=== PATIENT | female | born 1980 | race Caucasian/White ===

== ENCOUNTER 2023-10-26 19:16 | Observation (INO) | payer MEDICARE, MEDICAID, SELFPAY ==
[2023-10-26] VITALS (23 sets, daily range): BP systolic 118–170; BP diastolic 73–105; PULSE 63–115; TEMP 36.4–36.6; O2SAT 93–98; BMI 38.7; BMI 40.5
--- NOTE | 2023-10-26 19:26 | US_ITS ---
The [address] [address] Patient Name: LISETH ANDERSON MRN: [id number] date: 1980 Sex: F Assigned Patient Location: ER Current Patient Location: ICU Accession/Order Number: [id number] Exam Date: 10/26/2023 20:40 Report Date: 10/26/2023 23:19 At the request of: GEORGINA BARRY Procedure: US venous doppler LE LT EXAM: US venous doppler LE LT HISTORY: DVT COMPARISON: 08/28/2021 TECHNIQUE: Grayscale sonography of the left lower extremity was performed from the inguinal canal to popliteal fossa utilizing a venous compression technique. Duplex scans of the common femoral vein were performed. FINDINGS: There is normal compression the common femoral and superficial femoral veins. There is clot seen within the left popliteal vein, small saphenous vein and posterior tibial vein. US/US venous doppler LE LT IMPRESSION: Thrombosis of the left popliteal vein, small saphenous vein and posterior tibial vein. Critical results were identified 11:08 PM EDT 10/26/2023 NOTIFIED by TELEPHONE BY Dr. Trinidad Eid MD to Dr. Juaquin Haile At 10/26/2023 11:18 PM EDT. Electronically authenticated by: TRINIDAD EID Date: 10/26/2023 23:19
--- NOTE | 2023-10-26 19:26 | ECG_ITS ---
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
--- NOTE | 2023-10-26 19:26 | CT_ITS ---
The [address] [address] Patient Name: LISETH ANDERSON MRN: [id number] date: 1980 Sex: F Assigned Patient Location: ER Current Patient Location: ER Accession/Order Number: [id number] Exam Date: 10/26/2023 20:10 Report Date: 10/26/2023 21:10 At the request of: GEORGINA BARRY Procedure: CT angio chest CT angio chest HISTORY: PE TECHNIQUE: CTA chest with intravenous contrast attention to pulmonary arteries. Sagittal, coronal and slab 3D MIP coronal reconstructed images were also created for further evaluation and interpretation. One of the following dose optimization techniques was utilized in the performance of this exam: Automated exposure control; adjustment of the mA and/or kV according to the patient's size; or use of an iterative reconstruction technique. Specific details can be referenced in the facility's radiology CT exam operational policy. COMPARISON: None. FINDINGS: Thoracic aorta: Negative Pulmonary arteries: Predominantly nonocclusive filling defects in the bilateral interlobar arteries and Celexa segment and subsegmental artery supplying the bilateral upper lobes, right lower lobe and bilateral lower lobes. Mediastinum: No evidence of RV strain. Pacemaker ICD leads.. Lymph nodes: Negative. Lungs/pleura: Negative. Visualized upper abdomen: Hiatal hernia and evidence of gastric surgery. Bones/soft tissues: Negative. CT/CT angio chest IMPRESSION: 1. Bilateral pulmonary emboli without evidence of RV strain. 2. A stat call request for critical findings was submitted 7:10 PM MST Electronically authenticated by: DAVID BUSTOS Date: 10/26/2023 21:10
--- NOTE | 2023-10-26 19:38 | ED_ITS ---
HPI HPI - General Adult General Chief complaint: Extremity Injury, Lower Stated complaint: Lower Extremity Pain Time Seen by Provider: 10/26/23 19:20 Source: patient Mode of arrival: walk-in Limitations: no limitations History of Present Illness HPI narrative: Patient is a 42-year-old female who presents to the emergency department for pain in the left calf that has been present for several days. She states she has a history of gastroparesis and has had episodes of upper abdominal pain and vomiting over the last several weeks. She states she attributed the left calf pain to muscle cramps after vomiting. She has a pacemaker in place for history of sick sinus syndrome. She states she has previously had a DVT to her arm almost 15 years ago and was anticoagulated with Coumadin at that time. She is no longer anticoagulated. She denies chest pain but she is short of breath and tachycardic with arriving to the ER and walking to an exam room. She is not concerned for . Related Data Home Medications ?Medication ?Instructions ?Recorded ?Confirmed aripiprazole 30 mg tablet 30 mg PO DAILY 10/26/23 10/26/23 benztropine 1 mg tablet 1 mg PO BID 10/26/23 10/26/23 metoprolol succinate 25 mg 25 mg PO DAILY 10/26/23 10/26/23 tablet,extended release 24 hr mirtazapine 15 mg tablet 15 mg PO .HS 10/26/23 10/26/23 olanzapine 5 mg tablet 5 mg PO BID 10/26/23 10/26/23 paliperidone palmitate 234 mg/1.5 234 mg IM Q30D 10/26/23 10/26/23 mL intramuscular syringe (Invega Sustenna) venlafaxine 150 mg 150 mg PO DAILY 10/26/23 10/26/23 capsule,extended release 24 hr Allergies Allergy/AdvReac Type Severity Reaction Status Date / Time hydromorphone [From Dilaudid] Allergy Mild itching Verified 10/26/23 19:27 Opioid HPI Opioid Management Most Recent Opioid Data: Last Pain Scale 10 10/27/23 00:19 Last Pain Assessment 10/27/23 03:07 Last MAR Pain Assessment 10/27/23 01:20 Last ORT Total Score 4 10/26/23 23:12 Last ORT Risk Category Moderate Risk 10/26/23 23:12 Review of Systems ROS Constitutional Denies: fever or chills Ears, nose, mouth, and throat Denies: throat pain or nasal congestion Cardiovascular Denies: chest pain Respiratory Reports: shortness of breath Gastrointestinal Reports: abdominal pain, nausea and vomiting; Denies: diarrhea Musculoskeletal Denies: back pain Integumentary/Breast Denies: rash Neurological Denies: headache Hematologic/Lymphatic Denies: easy bruising or easy bleeding PFSH PFSH Medical History (Updated 10/27/23 @ 00:09 by Gretta Peterson) Hypertension ?I10 - Essential (primary) hypertension (ICD-10) Schizophrenia ?F20.9 - Schizophrenia, unspecified (ICD-10) DVT (deep venous thrombosis) ?I82.409 - Acute embolism and thrombosis of unspecified deep veins of unspecified lower extremity (ICD-10) Obesity ?E66.9 - Obesity, unspecified (ICD-10) Pacemaker ?Z95.0 - Presence of cardiac pacemaker (ICD-10) Sick sinus syndrome due to SA node dysfunction ?I49.5 - Sick sinus syndrome (ICD-10) Gastroparesis ?K31.84 - Gastroparesis (ICD-10) Surgical History (Updated 10/27/23 @ 00:09 by Gretta Peterson) S/P reconstruction of ligament of knee ?Z98.890 - Other specified postprocedural states (ICD-10) History of cholecystectomy ?Z90.49 - Acquired absence of other specified parts of digestive tract (ICD- 10) Hx of appendectomy ?Z90.49 - Acquired absence of other specified parts of digestive tract (ICD- 10) Social History (Updated 10/27/23 @ 00:10 by Gretta Peterson) Within the past year, how often did you have a drink containing alcohol: never Score interpretation: A score less than 3 is consistent with normal alcohol consumption. Smoking status: Never smoker Non-prescribed substance use: denies use Highest level of school completed/degree received: high school graduate Are you now , , , , never or living with a partner: living with partner Little interest or pleasure in doing things: several days Feeling down, depressed, or hopeless: several days Feel stressed/tense/nervous/anxious/difficulty sleeping: only a little Life stressor details: new baby at age of 42 Do you think of yourself as: straight/heterosexual Gender Identity: female Exam Narrative Exam Narrative: Gen.: Awake, alert, in no distress Head: Normocephalic, atraumatic ENT: Moist mucous membranes Respiratory: No respiratory distress, lungs clear bilaterally Cardio: Regular rate and rhythm Gastrointestinal: Abdomen is soft, nondistended and nontender to palpation Extremities: Moves extremities equally, no injuries noted Psych: Normal mood and affect Neuro: No focal neuro deficit Skin: Warm, dry, intact Constitutional Vital Signs, click to edit/add: Last Vital Signs Temp 97.6 F 10/26/23 23:09 Pulse 72 10/27/23 02:01 Resp 10 L 10/27/23 03:07 BP 147/89 H 10/26/23 23:09 Pulse Ox 96 10/26/23 23:09 O2 Del Method Room Air 10/26/23 23:09 Course Vital Signs Vital signs: Vital Signs Temperature 97.8 F 10/26/23 19:21 Pulse Rate 115 H 10/26/23 19:21 Respiratory Rate 18 10/26/23 19:21 Blood Pressure 170/105 H 10/26/23 19:21 Pulse Oximetry 97 10/26/23 19:21 Oxygen Delivery Method Room Air 10/26/23 19:21 Temperature 97.6 F 10/26/23 23:09 Pulse Rate 72 10/27/23 02:01 Respiratory Rate 10 L 10/27/23 03:07 Blood Pressure 147/89 H 10/26/23 23:09 Pulse Oximetry 96 10/26/23 23:09 Oxygen Delivery Method Room Air 10/26/23 23:09 Medical Decision Making MDM Narrative Medical decision making narrative: On arrival to the emergency department, IV was placed and the patient was given IV fluids. Lab studies show she has a potassium of 3.2, ultrasound of the left lower extremity was obtained as well as CT angio of the chest. Patient was found to have a DVT in the left popliteal, peroneal and posterior tibialis of the left lower extremity as well as CT angio showing bilateral PEs with no evidence of heart strain. Discussed with hospitalist service, patient will be admitted for bilateral PEs, DVT. Heparin bolus and drip were initiated. She is hemodynamically stable at time of admission to ICU. Medical Records Medical records reviewed: Yes I reviewed the patient's medical records Lab Data Lab results reviewed: Yes I reviewed the patient's lab results Labs: Lab Results 10/26/23 10/26/23 Range/Units 19:39 20:00 WBC 6.3 (4.0-11.0) 10^3/uL RBC 3.99 L (4.20-5.40) 10^6/uL Hgb 12.7 (12.0-16.0) g/dL Hct 38.5 (36.0-48.0) % MCV 96.5 (81.0-99.0) fL MCH 31.8 (26.7-34.0) pg MCHC 33.0 (29.9-35.2) g/dL RDW 12.7 (11.0-15.0) % Plt Count 138 L (150-450) 10^3/uL MPV 9.8 (9.5-13.5) fL Neut % (Auto) 68.8 (43.0-75.0) % Lymph % (Auto) 21.8 (20.5-60.0) % [place] % (Auto) 7.2 (1.7-12.0) % Eos % (Auto) 1.4 (0.9-7.0) % Baso % (Auto) 0.5 (0.2-2.0) % Neut # (Auto) 4.3 (1.4-6.5) 10^3/uL Lymph # (Auto) 1.4 (1.2-3.8) 10^3/uL [place] # (Auto) 0.5 (0.3-0.8) 10^3/uL Eos # (Auto) 0.1 (0.0-0.7) 10^3/uL Baso # (Auto) 0.0 (0.0-0.1) 10^3/uL Abs Immat Gran (auto) 0.02 (0.00-0.03) 10^3/uL Imm/Tot Granulo (auto) 0.3 (0.0-0.5) % PT 10.2 (9.0-11.6) sec INR 0.96 Sodium 140 (136-145) mmol/L Potassium 3.2 L (3.5-5.1) mmol/L Chloride 104 (98-107) mmol/L Carbon Dioxide 25.6 (21.0-32.0) mmol/L Anion Gap 13.6 BUN 10.0 (7.0-18.0) mg/dL Creatinine 0.94 (0.55-1.02) mg/dL Est GFR ( Amer) >60 (>=60) Est GFR (Non-Af Amer) >60 (>=60) BUN/Creatinine Ratio 10.6 Glucose 96 (74-106) mg/dL Lactate 2.3 H* (0.4-2.0) mmol/L Calcium 9.5 (8.5-10.1) mg/dL Total Bilirubin 0.5 (0.2-1.0) mg/dL AST 9 L (15-37) U/L ALT 11 L (14-59) U/L Alkaline Phosphatase 98 (46-116) U/L Troponin I High Sens <4.0 L (4.0-51.3) pg/mL NT-Pro-B Natriuret Pep 55.0 (<=450.0) pg/mL Total Protein 7.6 (6.4-8.2) g/dL Albumin 3.4 (3.4-5.0) g/dL Globulin 4.2 g/dL Albumin/Globulin Ratio 0.8 TSH 3.806 H (0.358-3.740) uIU/mL Serum HCG, Qual Negative (NEGATIVE) Urine Color Lt. yellow (YELLOW) Urine Clarity Clear (CLEAR) Urine pH 6.0 (5.0-9.0) Ur Specific [place] >=1.030 A (1.005-1.025) Urine Protein Negative (NEG/TRACE) mg/dL Urine Glucose (UA) Negative (NEGATIVE) mg/dL Urine Ketones Negative (NEGATIVE) mg/dL Urine Occult Blood Negative (NEGATIVE) Urine Nitrite Negative (NEGATIVE) Urine Bilirubin Negative (NEGATIVE) Urine Urobilinogen 1.0 (0.2-1.0) EU/dL Ur Leukocyte Esterase Small A (NEGATIVE) Urine RBC None seen (0-2) #/HPF Urine WBC 5-10 A (NONE SEEN) #/HPF Ur Squamous Epith Cells Many A (NONE/RARE) #/LPF Urine Crystals None seen (None Seen) #/HPF Amorphous Sediment Few Urine Bacteria None seen (NONE SEEN) #/HPF Urine Casts None seen (NONE SEEN) #/LPF Urine Mucus Small A (NONE SEEN) Ur Culture Indicated? Yes Imaging Data CT scan - chest: Attestation: I have reviewed the pertinent imaging results. Radiologist's impression: ITS Impressions Chest CTA 10/26/23 19:26 IMPRESSION: 1. Bilateral pulmonary emboli without evidence of RV strain. 2. A stat call request for critical findings was submitted 7:10 PM MST Electronically authenticated by: DAVID BUSTOS Date: 10/26/2023 21:10 Venous Doppler Study 10/26/23 19:26 IMPRESSION: Thrombosis of the left popliteal vein, small saphenous vein and posterior tibial vein. Critical results were identified 11:08 PM EDT 10/26/2023 NOTIFIED by TELEPHONE BY Dr. Trinidad Eid MD to Dr. Juaquin Haile At 10/26/2023 11:18 PM EDT. Electronically authenticated by: TRINIDAD EID Date: 10/26/2023 23:19 ECG Data Attestation: I personally reviewed and interpreted this ECG as follows: (Normal sinus rhythm at a rate of 97 with occasional PVC, no acute ST elevation. EKG reviewed by attending physician) Discharge Plan Discharge Chief Complaint: Extremity Injury, Lower Clinical Impression: Acute deep vein thrombosis (DVT) of left lower extremity, Bilateral pulmonary embolism Patient Disposition: Admitted As Inpatient Time of Disposition Decision: 21:29 Discharge Date/Time: 10/26/23 22:50
[2023-10-26 19:47] LABS: Basophils Percent Auto 0.5 % (0.2-2.0); Eosinophils Absolute Auto 0.1 10^3/uL (0.0-0.7); Eosinophils Percent Auto 1.4 % (0.9-7.0); Hematocrit 38.5 % (36.0-48.0); Hemoglobin 12.7 g/dL (12.0-16.0); Immature Granulocytes Abs Auto 0.02 10^3/uL (0.00-0.03); Immature Granulocytes Pct Auto 0.3 % (0.0-0.5); Lymphocytes Absolute Auto 1.4 10^3/uL (1.2-3.8); Lymphocytes Percent Auto 21.8 % (20.5-60.0); Mean Corpuscular Hemoglobin 31.8 pg (26.7-34.0); Mean Corpuscular Volume 96.5 fL (81.0-99.0); Mean Platelet Volume 9.8 fL (9.5-13.5); Monocytes Absolute Auto 0.5 10^3/uL (0.3-0.8); Monocytes Percent Auto 7.2 % (1.7-12.0); Neutrophils Absolute Auto 4.3 10^3/uL (1.4-6.5); Neutrophils Percent Auto 68.8 % (43.0-75.0); Platelet Count 138 10^3/uL (150-450); Red Blood Count 3.99 10^6/uL (4.20-5.40); Red Cell Distribution Width 12.7 % (11.0-15.0); White Blood Count 6.3 10^3/uL (4.0-11.0)
[2023-10-26] MEDS: PROMETHAZINE HCL 12.5 MG in 0.9 % SODIUM CHLORIDE 50 ML 202 MG IV (19:58)
[2023-10-26] MEDS: FAMOTIDINE/PF 20 MG/2 ML VIAL IV (20:00)
[2023-10-26] MEDS: 0.9 % SODIUM CHLORIDE 1,000 ML 1000 ML IV (20:00)
[2023-10-26 20:13] LABS: Bilirubin Urine NEGATIVE (NEGATIVE); Blood Urine NEGATIVE (NEGATIVE); Clarity Urine CLEAR (CLEAR); Color Urine LT. YELLOW (YELLOW); Glucose Urine UA NEGATIVE (NEGATIVE); Ketones Urine NEGATIVE (NEGATIVE); Leukocyte Esterase Urine SMALL (NEGATIVE); Nitrite Urine NEGATIVE (NEGATIVE); Protein Urine NEGATIVE (NEG/TRACE); Specific Gravity Urine >=1.030 (1.005-1.025)
[2023-10-26 20:14] LABS: INR 0.96; Prothrombin Time 10.2 sec (9.0-11.6)
[2023-10-26 20:15] LABS: Lactate/Lactic Acid 2.3 mmol/L (0.4-2.0)
[2023-10-26 20:22] LABS: HCG Qualitative NEGATIVE (NEGATIVE)
[2023-10-26 20:23] LABS: Alanine Aminotransferase 11 U/L (14-59); Albumin Globulin Ratio 0.8; Albumin Level 3.4 g/dL (3.4-5.0); Alkaline Phosphatase 98 U/L (46-116); Anion Gap 13.6; Aspartate Amino Transferase 9 U/L (15-37); BUN Creatinine Ratio 10.6; Bilirubin Total 0.5 mg/dL (0.2-1.0); Calcium 9.5 mg/dL (8.5-10.1); Carbon Dioxide 25.6 mmol/L (21.0-32.0); Chloride 104 mmol/L (98-107); Estimated GFR (African America >60 (>=60); Estimated GFR (Non-African Ame >60 (>=60); Globulin 4.2 g/dL; Glucose 96 mg/dL (74-106); Potassium 3.2 mmol/L (3.5-5.1); Sodium 140 mmol/L (136-145); Total Protein 7.6 g/dL (6.4-8.2)
[2023-10-26 20:25] LABS: Urine Microscopic Indicated YES
[2023-10-26 20:26] LABS: Thyroid Stimulating Hormone 3.806 uIU/mL (0.358-3.740); Troponin I High Sensitivity <4.0 pg/mL (4.0-51.3)
[2023-10-26 20:28] LABS: Amorphous Sediment Urine FEW; Bacteria Urine NONE SEEN #/HPF (NONE SEEN); Cast Seen? NONE SEEN #/LPF (NONE SEEN); Crystals Seen? None Seen #/HPF (None Seen); Mucus Urine SMALL (NONE SEEN); RBC Urine NONE SEEN #/HPF (0-2); Squamous Epithelial Cell Urine MANY #/LPF (NONE/RARE); Urine Culture Indicated YES
[2023-10-26] MEDS: POTASSIUM CHLORIDE 10 MEQ ER TABLET 40 MEQ PO (21:37)
[2023-10-26] MEDS: ONDANSETRON PF 4 MG/2 ML VIAL IV (21:58)
[2023-10-26] MEDS: ACETAMINOPHEN 325 MG TABLET 650 MG PO (21:59)
[2023-10-26] MEDS: HEPARIN SODIUM (PORCINE) 5,000 UNIT/ML VIAL 6300 UNIT IV (22:00)
[2023-10-26] MEDS: HEPARIN SODIUM,PORCINE/D5W 25,000 UNIT/500 ML IV.SOLN 29.1600000000000001 UNIT IV (22:02)
[2023-10-27] VITALS (11 sets, daily range): BP systolic 102–126; BP diastolic 73–79; PULSE 62–86; TEMP 36.7; O2SAT 93
[2023-10-27] MEDS: KETOROLAC TROMETHAMINE 30 MG/ML VIAL IVP ×2 (00:19→08:52)
[2023-10-27] MEDS: PROMETHAZINE HCL 25 MG TABLET PO (00:19)
[2023-10-27 04:41] LABS: Basophils Percent Auto 0.6 % (0.2-2.0); Eosinophils Absolute Auto 0.1 10^3/uL (0.0-0.7); Eosinophils Percent Auto 1.9 % (0.9-7.0); Hematocrit 34.1 % (36.0-48.0); Immature Granulocytes Abs Auto 0.01 10^3/uL (0.00-0.03); Immature Granulocytes Pct Auto 0.2 % (0.0-0.5); Lymphocytes Absolute Auto 1.8 10^3/uL (1.2-3.8); Lymphocytes Percent Auto 37.7 % (20.5-60.0); Mean Corpuscular HGB Conc 32.3 g/dL (29.9-35.2); Mean Corpuscular Hemoglobin 31.4 pg (26.7-34.0); Mean Corpuscular Volume 97.4 fL (81.0-99.0); Mean Platelet Volume 9.9 fL (9.5-13.5); Monocytes Absolute Auto 0.3 10^3/uL (0.3-0.8); Monocytes Percent Auto 7.2 % (1.7-12.0); Neutrophils Absolute Auto 2.5 10^3/uL (1.4-6.5); Neutrophils Percent Auto 52.4 % (43.0-75.0); Platelet Count 122 10^3/uL (150-450); White Blood Count 4.7 10^3/uL (4.0-11.0)
[2023-10-27 05:01] LABS: Alanine Aminotransferase 12 U/L (14-59); Albumin Globulin Ratio 0.8; Albumin Level 2.8 g/dL (3.4-5.0); Alkaline Phosphatase 74 U/L (46-116); Anion Gap 12.7; Aspartate Amino Transferase 11 U/L (15-37); BUN Creatinine Ratio 10.5; Bilirubin Total 0.5 mg/dL (0.2-1.0); Carbon Dioxide 25.5 mmol/L (21.0-32.0); Chloride 106 mmol/L (98-107); Estimated GFR (African America >60 (>=60); Estimated GFR (Non-African Ame >60 (>=60); Globulin 3.3 g/dL; Glucose 87 mg/dL (74-106); Potassium 4.2 mmol/L (3.5-5.1); Sodium 140 mmol/L (136-145); Total Protein 6.1 g/dL (6.4-8.2)
[2023-10-27 05:03] LABS: INR 1.02; Prothrombin Time 10.8 sec (9.0-11.6)
[2023-10-27 05:06] LABS: PTT Heparin Monitor 81.9 sec (48.2-68.6)
[2023-10-27 05:09] LABS: Lactate/Lactic Acid 1.1 mmol/L (0.4-2.0)
[2023-10-27] MEDS: ARIPIPRAZOLE 15 MG TABLET 30 MG PO (08:53)
[2023-10-27] MEDS: VENLAFAXINE HCL ER 150 MG CAPSULE PO (08:53)
[2023-10-27] MEDS: BENZTROPINE MESYLATE 1 MG TABLET PO (08:53)
[2023-10-27] MEDS: METOPROLOL SUCCINATE 25 MG TAB.ER.24H PO (08:53)
[2023-10-27] MEDS: FAMOTIDINE/PF 20 MG/2 ML VIAL IV (08:53)
[2023-10-27] MEDS: APIXABAN 5 MG TABLET 10 MG PO (08:53)
--- NOTE | 2023-10-27 08:56 | P.HP_ITS ---
<Statement entered by Shaikh Maury MD - 10/27/23 14:59> This documentation has been reviewed and approved. Patient seen and examined. Case and treatment plan discussed with nursing staff, case management, JESSICA Mckeon. Agree with clinical documentation and treatment plan outlined in her H and P. Patient presented with left lower extremity swelling and mild shortness of b reath and was found to have even thrombosis and pulmonary embolism on workup. She was started on IV heparin drip and transitioned to oral Eliquis. She remained hemodynamically stable. She denies chest pain, shortness of breath but continues to have left lower extremity swelling and mild discomfort. Exam: Patient laying in bed comfortably. Normal respiratory rate, clear to auscultation bilaterally. Normal heart rate, no murmur. Mild left lower extremity swelling noted. Assessment and plan: History of pulmonary embolism Deep vein thrombosis Sick sinus syndrome schizophrenia Stable for discharge on Oral Eliquis. Follow-up with PCP in one week. Patient educated on worrisome signs and symptoms and was instructed to return to Emergency Department if she developed chest pain, shortness of breath dizziness or any signs of active bleeding. HPI H&P: HPI History of Present Illness Chief complaint: Lower Extremity Pain, Bilateral PE, DVT Left Leg Narrative: 10/27/23 0840 This is a 42-year-old female patient with a past medical history significant for schizophrenia, sick sinus syndrome with pacemaker, and previous upper extremity DVT; who presented to the ED last night complaining of left calf pain and concern for recurrent DVT. The patient reports left lower extremity pain and swelling for 1 week and mild onset of shortness of breath for 2 days. Workup in the ED revealed left thrombus in the popliteal, small saphenous and posterior tibial veins per venous Doppler study. A CTA of the chest revealed bilateral pulmonary emboli without evidence of RV strain. The patient was not hypoxic in the ER, nor in any respiratory distress. Labs also revealed mild hypokalemia (3.2). She was treated with 40 mill equivalents of KCl and admitted to the hospitalist service last night. At the time of my exam the patient is resting comfortably in bed. She denies any shortness of breath but continues to complain of left leg pain. Her left leg is moderately swollen and tender with a positive Homans' sign. As the patient is still not evidencing any hypoxia or dyspnea, she is being discharged home in stable condition and has been initiated on twice daily Eliquis dosing for her PEs. She is to follow-up with her PCP in 3 to 5 days to discuss long- term anticoagulation management. She has been provided with a discount card for 1 month free of Eliquis pending insurance authorization. Opioid HPI Opioid Management Most Recent Opioid Data: Last Pain Scale 7 10/27/23 10:00 Last Pain Assessment 10/27/23 10:00 Last MAR Pain Assessment 10/27/23 10:00 Last ORT Total Score 4 10/26/23 23:12 Last ORT Risk Category Moderate Risk 10/26/23 23:12 Review of Systems ROS Status of ROS 10 or more systems reviewed and unremark able except as noted in history and below [facility] Medical History (Updated 10/27/23 @ 07:38 by Linda Ramon NP) Hypertension ?I10 - Essential (primary) hypertension (ICD-10) Schizophrenia ?F20.9 - Schizophrenia, unspecified (ICD-10) DVT (deep venous thrombosis) ?I82.409 - Acute embolism and thrombosis of unspecified deep veins of unspecified lower extremity (ICD-10) Obesity ?E66.9 - Obesity, unspecified (ICD-10) Pacemaker ?Z95.0 - Presence of cardiac pacemaker (ICD-10) Sick sinus syndrome due to SA node dysfunction ?I49.5 - Sick sinus syndrome (ICD-10) Gastroparesis ?K31.84 - Gastroparesis (ICD-10) Surgical History (Updated 10/27/23 @ 00:09 by Gretta Peterson) S/P reconstruction of ligament of knee ?Z98.890 - Other specified postprocedural states (ICD-10) History of cholecystectomy ?Z90.49 - Acquired absence of other specified parts of digestive tract (ICD- 10) Hx of appendectomy ?Z90.49 - Acquired absence of other specified parts of digestive tract (ICD- 10) Social History (Updated 10/27/23 @ 00:10 by Gretta Peterson) Within the past year, how often did you have a drink containing alcohol: never Score interpretation: A score less than 3 is consistent with normal alcohol consumption. Smoking status: Never smoker Non-prescribed substance use: denies use Highest level of school completed/degree received: high school graduate Are you now , , , , never or living with a partner: living with partner Little interest or pleasure in doing things: several days Feeling down, depressed, or hopeless: several days Feel stressed/tense/nervous/anxious/difficulty sleeping: only a little Life stressor details: new baby at age of 42 Do you think of yourself as: straight/heterosexual Gender Identity: female Meds Home Medications and Allergies Home Medications ?Medication ?Instructions ?Recorded ?Confirmed ?Type aripiprazole 30 mg tablet 30 mg PO DAILY 10/26/23 10/26/23 History benztropine 1 mg tablet 1 mg PO BID 10/26/23 10/26/23 History metoprolol succinate 25 mg 25 mg PO DAILY 10/26/23 10/26/23 History tablet,extended release 24 hr mirtazapine 15 mg tablet 15 mg PO .HS 10/26/23 10/26/23 History olanzapine 5 mg tablet 5 mg PO .qd PRN hallucinations 10/26/23 10/27/23 History paliperidone palmitate 234 mg/1.5 234 mg IM Q30D 10/26/23 10/26/23 History mL intramuscular syringe (Invega Sustenna) venlafaxine 150 mg 150 mg PO DAILY 10/26/23 10/26/23 History capsule,extended release 24 hr apixaban 5 mg (74 tabs) tablets in See Rx Instructions .Route 10/27/23 Rx a dose pack (CondoGala DVT-PE Treat .COMPLEX #74 ea 30D Start) Allergies Allergy/AdvReac Type Severity Reaction Status Date / Time hydromorphone [From Dilaudid] Allergy Mild itching Verified 10/26/23 19:27 Exam Constitutional Vital Signs, click to edit/add: Last Vital Signs Temp 98.1 F 10/27/23 07:33 Pulse 77 10/27/23 07:30 Resp 14 10/27/23 07:30 BP 102/73 10/27/23 07:25 Pulse Ox 93 L 10/27/23 04:00 O2 Del Method Room Air 10/27/23 07:33 Common normals: no apparent distress, oriented x3, alert and well nourished General appearance: cooperative Orientation/consciousness: Yes awake HENMT Common normals: normocephalic, head/scalp atraumatic, hearing grossly normal bilaterally, external nose normal and moist oral mucous membranes Eye Common normals: PERRL, EOMs intact bilaterally, conjunctivae normal and no scleral icterus Alignment: alignment normal Eyelid: eyelids normal Neck & C-Spine Common normals: full ROM, supple and no JVD Chest Common normals: inspection of chest normal Chest: symmetrical chest wall rise Respiratory Common normals: normal respiratory effort, no retractions, no use of accessory muscles and clear to auscultation bilaterally Effort & inspection: able to speak in complete sentences Cardio Common normals: no JVD, regular rate, regular rhythm, S1 normal heart sound, S2 normal heart sound, no gallops, no clicks, no murmurs, no rub and peripheral pulses 2+ throughout GI Common normals: Normal to inspection, nondistended, normoactive bowel sounds present, soft to palpation, non-tender, no hepatosplenomegaly, no masses and no bruits Bladder/kidney exam: bladder normal to palpation Back & Pelvis Common normals: thoracic and lumbar spine normal to inspection Extremity Common normals: normal capillary refill and no pedal edema General: normal exam except as noted and edema (Tr L instep/ankle); no clubbing and no cyanosis Left lower extremity: lower leg (Swollen, firm, tender calf) Neuro [place] Coma Scale: GCS not evaluated Common normals: CN's II-XII intact bilaterally, moves all extremities, no focal motor deficits and no sensory deficits noted Speech: speech normal Motor exam: strength 5/5 throughout Psych Common normals: mental status grossly normal and thought process normal Thought process: normal thought process Results Labs Labs: Short CBC 10/26/23 10/27/23 Range/Units 19:39 04:19 WBC 6.3 4.7 (4.0-11.0) 10^3/uL Hgb 12.7 11.0 L (12.0-16.0) g/dL Hct 38.5 34.1 L (36.0-48.0) % Plt Count 138 L 122 L (150-450) 10^3/uL BMP 10/26/23 10/27/23 19:39 04:19 Sodium 140 140 Potassium 3.2 L 4.2 Chloride 104 106 Carbon Dioxide 25.6 25.5 BUN 10.0 8.0 Creatinine 0.94 0.76 Glucose 96 87 Calcium 9.5 9.0 Liver Function 10/26/23 10/27/23 Range/Units 19:39 04:19 Total Bilirubin 0.5 0.5 (0.2-1.0) mg/dL AST 9 L 11 L (15-37) U/L ALT 11 L 12 L (14-59) U/L Alkaline Phosphatase 98 74 (46-116) U/L Albumin 3.4 2.8 L (3.4-5.0) g/dL Urine 10/26/23 Range/Units 20:00 Urine Color Lt. yellow (YELLOW) Urine Clarity Clear (CLEAR) Urine pH 6.0 (5.0-9.0) Ur Specific [place] >=1.030 A (1.005-1.025) Urine Protein Negative (NEG/TRACE) mg/dL Urine Glucose (UA) Negative (NEGATIVE) mg/dL Pulse Oximetry Attestation: I have reviewed the pertinent pulse oximetry results. Assessment and Plan Assessment and Plan (1) Bilateral pulmonary embolism: Assessment and Plan: Acute * Adm observation * CTA Chest reveals bilat PEs w/o evidence of RV strain * No evidence of hypoxia or respiratory distress * Heparin gtt initiated in the ED - d/c * Start Eliquis 10mg BID x 7 days, then 5 mg BID thereafter * D/C home - follow up with PCP within 1 week to discuss shelter anticoagulation plan (2) Acute deep vein thrombosis (DVT) of left lower extremity: Assessment and Plan: Acute * LLE DVTs to popliteal, sm saphenous, post tibial veins * See PE tx above (3) Hypokalemia: Assessment and Plan: Acute * K+ 3.2 in ED last night * KCL 40 mEq PO given in the ED * Resolved to 4.2 on AM labs today (4) Schizophrenia: Assessment and Plan: Chronic * Continue home aripiprazole, Invega, Mirtazapine, olanzapine, venlafaxine and benztropine to counteract antipsychotic med SEs (5) Hypertension: Assessment and Plan: Chronic * Continue home toprol xl (6) Sick sinus syndrome due to SA node dysfunction: Assessment and Plan: Chronic * Pacemaker in situ * HR well controlled
--- NOTE | 2023-10-27 10:54 | CM.NOTE ---
Rounds made with Dr. Mendiola, pt will discharge to home today. Discussed with pt diagnosis and new medication (Eliquis). Pt verbalizes understanding. Provided pt with 30 day free trail Eliquis card for discharge. Pt lives at home with boyfriend and children. No discharge needs identified.
--- NOTE | 2023-10-27 11:06 | PC.NURSE ---
taken to exit via wheelchair with belongings. discharged to private vehicle.
--- NOTE | 2023-10-27 11:15 | CM.NOTE ---
Medicare Outpatient Observation Notice discussed with pt, pt verbalizes understanding and signs paper. Original given to pt and copy placed on pt's chart.
== END 2023-10-27 11:01 | disposition home or self-care (01) ==
LOC: ER 21:29 → ICU 10-27 07:38
PROVIDERS: Nurse Practitioner Acute Care; Physician Assistant; Admitting Provider Nurse Practitioner; Emergency Provider Internal Medicine; PCP Family Medicine; Visit Provider Nurse Practitioner
DX: I82.432 Acute embolism and thrombosis of left popliteal vein (principal); I82.442 Acute embolism and thrombosis of left tibial vein; I82.4Z2 Acute embolism and thrombosis of unspecified deep veins of left distal lower extremity; I26.99 Other pulmonary embolism without acute cor pulmonale; E87.6 Hypokalemia; F20.9 Schizophrenia, unspecified; I10 Essential (primary) hypertension; I49.5 Sick sinus syndrome; R06.02 Shortness of breath; Z95.0 Presence of cardiac pacemaker; K31.84 Gastroparesis; E66.9 Obesity, unspecified; Z68.41 Body mass index [BMI] 40.0-44.9, adult; Z90.49 Acquired absence of other specified parts of digestive tract; Z98.890 Other specified postprocedural states; Z86.718 Personal history of other venous thrombosis and embolism; Z79.899 Other long term (current) drug therapy
CPT/HCPCS: 36415; 71275; 80053; 81001; 83605; 83880; 84443; 84484; 84703; 85025; 85610; 85730; 87086; 93005; 93971; 96361; 96365; 96366; 96367; 96375; 96376; 99285; G0378; Q9967

== ENCOUNTER 2023-10-28 18:32 | Emergency (ER) | payer MEDICARE, MEDICAID, SELFPAY ==
[2023-10-28] VITALS (36 sets, daily range): BP systolic 111–173; BP diastolic 82–104; PULSE 60–95; TEMP 36.6; O2SAT 92–99; BMI 40.4
--- NOTE | 2023-10-28 18:53 | ECG_ITS ---
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
--- NOTE | 2023-10-28 18:53 | XR_ITS ---
[address] [address] Patient Name: LISETH ANDERSON MRN: [id number] date: 1980 Sex: F Assigned Patient Location: ER Current Patient Location: ER Accession/Order Number: [id number] Exam Date: 10/28/2023 18:25 Report Date: 10/28/2023 19:48 At the request of: MARITZA JIANG Procedure: XR chest 1V Exam: Radiographs: XR chest 1V Reason for exam: Chest pain, dyspnea Comparison: Chest CT dated 10/26/2023 XR/XR chest 1V IMPRESSION: Right IJ approach port with tip in the upper SVC. Pacemaker. Remainder the chest is unremarkable. Electronically authenticated by: MEHRDAD CHEEK Date: 10/28/2023 19:48
--- NOTE | 2023-10-28 18:54 | ED.CHESTPAI1 ---
Documented by User: Yasmeen Ricardo 10/28/23 22:04 HPI - Chest Pain General Chief Complaint: Chest Pain Stated Complaint: Shortness of Breath, Chest Pain Time Seen by Provider: 10/28/23 18:46 Source: patient Mode of arrival: walk-in Limitations: no limitations History of Present Illness HPI narrative: 42 year old female presents to the ED for chest pain, SOB. Onset was today. Denies fever, chills, edema. On 10/26/23 she was diagnosed with a LLE DVT and bilateral PEs; she was admitted to the hospital and discharged on Eliquis. States she has been taking it as directed. Chest CTA 10/26/23 19:26 IMPRESSION: 1. Bilateral pulmonary emboli without evidence of RV strain. 2. A stat call request for critical findings was submitted 7:10 PM MST Electronically authenticated by: DAVID BUSTOS Date: 10/26/2023 21:10 Venous Doppler Study 10/26/23 19:26 IMPRESSION: Thrombosis of the left popliteal vein, small saphenous vein and posterior tibial vein. Critical results were identified 11:08 PM EDT 10/26/2023 NOTIFIED by TELEPHONE BY Dr. Trinidad Bhatia MD to Dr. Juaquin Haile At 10/26/2023 11:18 PM EDT. Related Data Home Medications ?Medication ?Instructions ?Recorded ?Confirmed aripiprazole 30 mg tablet 30 mg PO DAILY 10/26/23 10/26/23 benztropine 1 mg tablet 1 mg PO BID 10/26/23 10/26/23 metoprolol succinate 25 mg 25 mg PO DAILY 10/26/23 10/26/23 tablet,extended release 24 hr mirtazapine 15 mg tablet 15 mg PO .HS 10/26/23 10/26/23 olanzapine 5 mg tablet 5 mg PO .qd PRN hallucinations 10/26/23 10/27/23 paliperidone palmitate 234 mg/1.5 234 mg IM Q30D 10/26/23 10/26/23 mL intramuscular syringe (Invega Sustenna) venlafaxine 150 mg 150 mg PO DAILY 10/26/23 10/26/23 capsule,extended release 24 hr Previous Rx's ?Medication ?Instructions ?Recorded apixaban 5 mg (74 tabs) tablets in See Rx Instructions .Route 10/27/23 a dose pack (Eliquis DVT-PE Treat .COMPLEX #74 ea 30D Start) Allergies Allergy/AdvReac Type Severity Reaction Status Date / Time hydromorphone [From Dilaudid] Allergy Mild itching Verified 10/26/23 19:27 Review of Systems ROS Constitutional Denies: fever or chills Ears, nose, mouth, and throat Denies: throat pain or neck pain Cardiovascular Reports: chest pain; Denies: palpitations, edema, swelling of feet/ankles or lightheadedness Respiratory Reports: shortness of breath; Denies: cough Gastrointestinal Denies: abdominal pain, nausea, vomiting or diarrhea Musculoskeletal Denies: back pain or neck pain Integumentary/Breast Denies: rash Neurological Reports: dizziness; Denies: headache, numbness in extremities, weakness in extremities, lack of coordination or slurred speech PFSH PFS Medical History (Updated 10/28/23 @ 22:03 by Yasmeen Ricardo) Hypertension ?I10 - Essential (primary) hypertension (ICD-10) Schizophrenia ?F20.9 - Schizophrenia, unspecified (ICD-10) DVT (deep venous thrombosis) ?I82.409 - Acute embolism and thrombosis of unspecified deep veins of unspecified lower extremity (ICD-10) Obesity ?E66.9 - Obesity, unspecified (ICD-10) Pacemaker ?Z95.0 - Presence of cardiac pacemaker (ICD-10) Sick sinus syndrome due to SA node dysfunction ?I49.5 - Sick sinus syndrome (ICD-10) Gastroparesis ?K31.84 - Gastroparesis (ICD-10) Surgical History (Updated 10/27/23 @ 00:09 by Gretta Peterson) S/P reconstruction of ligament of knee ?Z98.890 - Other specified postprocedural states (ICD-10) History of cholecystectomy ?Z90.49 - Acquired absence of other specified parts of digestive tract (ICD-10) Hx of appendectomy ?Z90.49 - Acquired absence of other specified parts of digestive tract (ICD-10) Social History (Updated 10/27/23 @ 00:10 by Gretta Peterson) Within the past year, how often did you have a drink containing alcohol: never Score interpretation: A score less than 3 is consistent with normal alcohol consumption. Smoking status: Never smoker Non-prescribed substance use: denies use Highest level of school completed/degree received: high school graduate Are you now , , , , never or living with a partner: living with partner Little interest or pleasure in doing things: several days Feeling down, depressed, or hopeless: several days Feel stressed/tense/nervous/anxious/difficulty sleeping: only a little Life stressor details: new baby at age of 42 Do you think of yourself as: straight/heterosexual Gender Identity: female Exam Constitutional Vital Signs, click to edit/add: Last Vital Signs Temp 97.9 F 10/28/23 18:37 Pulse 73 10/29/23 05:46 Resp 17 10/29/23 05:46 BP 115/76 10/29/23 05:46 Pulse Ox 95 10/29/23 05:20 O2 Del Method Room Air 10/28/23 18:37 Common normals: no apparent distress and oriented x3 General appearance: cooperative HENMT Mouth: oral and palatal mucosa normal, lip normal and tongue normal Eye Common normals: conjunctivae normal and no scleral icterus Neck & C-Spine Common normals: supple Chest Chest: symmetrical chest wall rise Respiratory Common normals: normal respiratory effort and clear to auscultation bilaterally Effort & inspection: able to speak in complete sentences and symmetric chest movement Cardio Common normals: regular rhythm Rate: tachycardic Neuro Common normals: oriented x3 Sensorium/orientation: awake and alert Speech: speech normal Course Vital Signs Vital signs: Vital Signs Temperature 97.9 F 10/28/23 18:37 Pulse Rate 95 H 10/28/23 18:37 Respiratory Rate 20 10/28/23 18:37 Blood Pressure 173/100 H 10/28/23 18:37 Pulse Oximetry 98 10/28/23 18:37 Oxygen Delivery Method Room Air 10/28/23 18:37 Temperature 97.9 F 10/28/23 18:37 Pulse Rate 73 10/29/23 05:46 Respiratory Rate 17 10/29/23 05:46 Blood Pressure 115/76 10/29/23 05:46 Pulse Oximetry 95 10/29/23 05:20 Oxygen Delivery Method Room Air 10/28/23 18:37 MDM - Chest Pain MDM Narrative Medical decision making narrative: Laboratory studies were unremarkable. CT scan of the chest showed moderate to large burden of acute bilateral pulmonary emboli with borderline findings for right heart strain. Report appears worse than previous. The patient was started on Heparin. The patient will be transferred to a tertiary facility for a higher level of care. Care was resumed to Dr. Greenberg. See her dictation for further evaluation and treatment. Differential Diagnosis Differential diagnosis: Likely atypical chest pain, st elevation myocardial infarction, chest pain and other (PE) Medical Records Data Attestation: I reviewed the patient's medical records. Lab Data Attestation: I reviewed the patient's lab results. Labs: Lab Results 10/28/23 10/29/23 Range/Units 19:18 05:26 WBC 5.5 (4.0-11.0) 10^3/uL RBC 3.65 L (4.20-5.40) 10^6/uL Hgb 11.6 L (12.0-16.0) g/dL Hct 35.3 L (36.0-48.0) % MCV 96.7 (81.0-99.0) fL MCH 31.8 (26.7-34.0) pg MCHC 32.9 (29.9-35.2) g/dL RDW 12.8 (11.0-15.0) % Plt Count 154 (150-450) 10^3/uL MPV 9.4 L (9.5-13.5) fL Neut % (Auto) 65.8 (43.0-75.0) % Lymph % (Auto) 25.2 (20.5-60.0) % [place] % (Auto) 7.3 (1.7-12.0) % Eos % (Auto) 1.1 (0.9-7.0) % Baso % (Auto) 0.4 (0.2-2.0) % Neut # (Auto) 3.6 (1.4-6.5) 10^3/uL Lymph # (Auto) 1.4 (1.2-3.8) 10^3/uL [place] # (Auto) 0.4 (0.3-0.8) 10^3/uL Eos # (Auto) 0.1 (0.0-0.7) 10^3/uL Baso # (Auto) 0.0 (0.0-0.1) 10^3/uL Abs Immat Gran (auto) 0.01 (0.00-0.03) 10^3/uL Imm/Tot Granulo (auto) 0.2 (0.0-0.5) % PT 10.4 (9.0-11.6) sec INR 0.98 APTT 26.7 (22.3-36.2) sec PTT (Heparin Absorb) 102.5 H* (48.2-68.6) sec Sodium 141 (136-145) mmol/L Potassium 4.0 (3.5-5.1) mmol/L Chloride 107 (98-107) mmol/L Carbon Dioxide 27.8 (21.0-32.0) mmol/L Anion Gap 10.2 BUN 14.0 (7.0-18.0) mg/dL Creatinine 0.92 (0.55-1.02) mg/dL Est GFR ( Amer) >60 (>=60) Est GFR (Non-Af Amer) >60 (>=60) BUN/Creatinine Ratio 15.2 Glucose 90 (74-106) mg/dL Calcium 9.1 (8.5-10.1) mg/dL Total Bilirubin 0.4 (0.2-1.0) mg/dL AST 15 (15-37) U/L ALT 12 L (14-59) U/L Alkaline Phosphatase 82 (46-116) U/L Troponin I High Sens 4.1 (4.0-51.3) pg/mL NT-Pro-B Natriuret Pep 152.0 (<=450.0) pg/mL Total Protein 6.8 (6.4-8.2) g/dL Albumin 3.2 L (3.4-5.0) g/dL Globulin 3.6 g/dL Albumin/Globulin Ratio 0.[address] scan - chest: Radiologist's impression: ITS Impressions Chest X-Ray 10/28/23 18:53 IMPRESSION: Right IJ approach port with tip in the upper SVC. Pacemaker. Remainder the chest is unremarkable. Electronically authenticated by: MEHRDAD CHEEK Date: 10/28/2023 19:48 Chest CTA 10/28/23 20:30 IMPRESSION: Moderate to large burden of acute bilateral pulmonary emboli with borderline findings for right heart strain. Electronically authenticated by: MEHRDAD CHEEK Date: 10/28/2023 21:48 ADDENDUM: 10/28/232158 IMPRESSION: Moderate to large burden of acute bilateral pulmonary emboli with borderline findings for right heart strain. Electronically authenticated by: MEHRDAD CHEEK Date: 10/28/2023 21:57 ECG Data Attestation: ?I have reviewed the pertinent ECG results. (EKG was reviewed by the attending physician. It showed sinus rhythm at a rate of 77. No acute ST segment changes.) Interpretation: Measurements Intervals [place] Rate: 77 P: 56 OH: 182 QRS: 40 QRSD: 94 T: 42 QT: 366 QTc: 398 Interpretive Statements 1100 Sinus rhythm 9110 normal ECG No previous ECG available for comparison Discharge Plan Discharge Chief Complaint: Chest Pain Clinical Impression: Pulmonary emboli, Chest pain Patient Disposition: [facility] Time of Disposition Decision: 23:30 Discharge Location: [facility] Condition: Fair Documented by User: Shahana Greenberg MD 10/29/23 06:25 HPI - Chest Pain General Chief Complaint: Chest Pain Stated Complaint: Shortness of Breath, Chest Pain Time Seen by Provider: 10/28/23 18:46 Related Data Home Medications ?Medication ?Instructions ?Recorded ?Confirmed aripiprazole 30 mg tablet 30 mg PO DAILY 10/26/23 10/26/23 benztropine 1 mg tablet 1 mg PO BID 10/26/23 10/26/23 metoprolol succinate 25 mg 25 mg PO DAILY 10/26/23 10/26/23 tablet,extended release 24 hr mirtazapine 15 mg tablet 15 mg PO .HS 10/26/23 10/26/23 olanzapine 5 mg tablet 5 mg PO .qd PRN hallucinations 10/26/23 10/27/23 paliperidone palmitate 234 mg/1.5 234 mg IM Q30D 10/26/23 10/26/23 mL intramuscular syringe (Invega Sustenna) venlafaxine 150 mg 150 mg PO DAILY 10/26/23 10/26/23 capsule,extended release 24 hr Previous Rx's ?Medication ?Instructions ?Recorded apixaban 5 mg (74 tabs) tablets in See Rx Instructions .Route 10/27/23 a dose pack (Eliquis DVT-PE Treat .COMPLEX #74 ea 30D Start) Allergies Allergy/AdvReac Type Severity Reaction Status Date / Time hydromorphone [From Dilaudid] Allergy Mild itching Verified 10/26/23 19:27 [facility] Medical History (Updated 10/28/23 @ 22:03 by Yasmeen Ricardo) Hypertension ?I10 - Essential (primary) hypertension (ICD-10) Schizophrenia ?F20.9 - Schizophrenia, unspecified (ICD-10) DVT (deep venous thrombosis) ?I82.409 - Acute embolism and thrombosis of unspecified deep veins of unspecified lower extremity (ICD-10) Obesity ?E66.9 - Obesity, unspecified (ICD-10) Pacemaker ?Z95.0 - Presence of cardiac pacemaker (ICD-10) Sick sinus syndrome due to SA node dysfunction ?I49.5 - Sick sinus syndrome (ICD-10) Gastroparesis ?K31.84 - Gastroparesis (ICD-10) Surgical History (Updated 10/27/23 @ 00:09 by Gretta Peterson) S/P reconstruction of ligament of knee ?Z98.890 - Other specified postprocedural states (ICD-10) History of cholecystectomy ?Z90.49 - Acquired absence of other specified parts of digestive tract (ICD-10) Hx of appendectomy ?Z90.49 - Acquired absence of other specified parts of digestive tract (ICD-10) Social History (Updated 10/27/23 @ 00:10 by Gretta Peterson) Within the past year, how often did you have a drink containing alcohol: never Score interpretation: A score less than 3 is consistent with normal alcohol consumption. Smoking status: Never smoker Non-prescribed substance use: denies use Highest level of school completed/degree received: high school graduate Are you now , , , , never or living with a partner: living with partner Little interest or pleasure in doing things: several days Feeling down, depressed, or hopeless: several days Feel stressed/tense/nervous/anxious/difficulty sleeping: only a little Life stressor details: new baby at age of 42 Do you think of yourself as: straight/heterosexual Gender Identity: female Exam Constitutional Vital Signs, click to edit/add: Last Vital Signs Temp 97.9 F 10/28/23 18:37 Pulse 73 10/29/23 05:46 Resp 17 10/29/23 05:46 BP 115/76 10/29/23 05:46 Pulse Ox 95 10/29/23 05:20 O2 Del Method Room Air 10/28/23 18:37 Course Vital Signs Vital signs: Vital Signs Temperature 97.9 F 10/28/23 18:37 Pulse Rate 95 H 10/28/23 18:37 Respiratory Rate 20 10/28/23 18:37 Blood Pressure 173/100 H 10/28/23 18:37 Pulse Oximetry 98 10/28/23 18:37 Oxygen Delivery Method Room Air 10/28/23 18:37 Temperature 97.9 F 10/28/23 18:37 Pulse Rate 73 10/29/23 05:46 Respiratory Rate 17 10/29/23 05:46 Blood Pressure 115/76 10/29/23 05:46 Pulse Oximetry 95 10/29/23 05:20 Oxygen Delivery Method Room Air 10/28/23 18:37 MDM - Chest Pain MDM Narrative Medical decision making narrative: Laboratory studies were unremarkable. CT scan of the chest showed moderate to large burden of acute bilateral pulmonary emboli with borderline findings for right heart strain. Report appears worse than previous. The patient was started on Heparin. The patient will be transferred to a tertiary facility for a higher level of care. Care was resumed to Dr. Greenberg. See her dictation for further evaluation and treatment. This patient was seen and evaluated by myself. She was here on October 25 and diagnosed with a left lower extremity deep vein thrombosis. Subsequently a CT scan of the chest was ordered that showed nonocclusive filling defects in the bilateral intralobar arteries and subsegmental arteries supplying the bilateral upper lobes right lower lobe and bilateral lower lobes. There was no evidence of right ventricular strain at that time. She was admitted briefly on heparin and then in addition to Eliquis 10 mg twice a day. She presents to the emergency department with shortness of breath. Patient is well-known to me taking care of her for many years. She has a history of gastroparesis for which she has had a gastrectomy years ago. She had a port placed for IV access due to difficult access many years ago which is currently no longer working. The patient also has a history of a pacemaker due to sick sinus syndrome. EKG done upon arrival is a sinus rhythm at 77 bpm with a normal axis. No acute changes are noted. There is a tiny Q wave in lead 3. Routine labs are ordered and are reviewed. She has a normal troponin. Normal BNP.It is a normal white count and hemoglobin. Electrolytes are normal. Due to her change in condition a repeat CT angios was ordered which shows moderate to large burden of acute bilateral pulmonary emboli including emboli in the distal left pulmonary artery, multiple bilateral lobar, segmental and subsegmental pulmonary artery branches with a suggestion of left bowing of the intraventricular septum with borderline findings for right heart strain. I discussed this with Dr. Arias, Vascular surgery at [facility] in [place]. He suggested that in light of the fact that she has a normal troponin, normal BNP and the CT scan findings that we discussed that she does not have an excessive amount of clot burden in the main pulmonary artery. He suggested that she be admitted for an echocardiogram to the hospitalist service and if the echocardiogram is abnormal a vascular intervention may be performed. He suggested admission to the hospitalist service. I spoke to the hospitalist, HOMERO Pitts. She requested I speak to the warehouse selector, Dr. Villaseñor. We again reviewed the case and he suggested that the patient is stable for stepdown as she does not have any oxygen requirements. She has not had any syncope. She has a normal EKG, normal troponin and normal BNP. She was started on heparin. She has remained hemodynamically stable. She is accepted for transfer to stepdown unit at [facility] in [place]. Critical care time 40 minutes Lab Data Labs: Lab Results 10/28/23 10/29/23 Range/Units 19:18 05:26 WBC 5.5 (4.0-11.0) 10^3/uL RBC 3.65 L (4.20-5.40) 10^6/uL Hgb 11.6 L (12.0-16.0) g/dL Hct 35.3 L (36.0-48.0) % MCV 96.7 (81.0-99.0) fL MCH 31.8 (26.7-34.0) pg MCHC 32.9 (29.9-35.2) g/dL RDW 12.8 (11.0-15.0) % Plt Count 154 (150-450) 10^3/uL MPV 9.4 L (9.5-13.5) fL Neut % (Auto) 65.8 (43.0-75.0) % Lymph % (Auto) 25.2 (20.5-60.0) % [place] % (Auto) 7.3 (1.7-12.0) % Eos % (Auto) 1.1 (0.9-7.0) % Baso % (Auto) 0.4 (0.2-2.0) % Neut # (Auto) 3.6 (1.4-6.5) 10^3/uL Lymph # (Auto) 1.4 (1.2-3.8) 10^3/uL [place] # (Auto) 0.4 (0.3-0.8) 10^3/uL Eos # (Auto) 0.1 (0.0-0.7) 10^3/uL Baso # (Auto) 0.0 (0.0-0.1) 10^3/uL Abs Immat Gran (auto) 0.01 (0.00-0.03) 10^3/uL Imm/Tot Granulo (auto) 0.2 (0.0-0.5) % PT 10.4 (9.0-11.6) sec INR 0.98 APTT 26.7 (22.3-36.2) sec PTT (Heparin Absorb) 102.5 H* (48.2-68.6) sec Sodium 141 (136-145) mmol/L Potassium 4.0 (3.5-5.1) mmol/L Chloride 107 (98-107) mmol/L Carbon Dioxide 27.8 (21.0-32.0) mmol/L Anion Gap 10.2 BUN 14.0 (7.0-18.0) mg/dL Creatinine 0.92 (0.55-1.02) mg/dL Est GFR ( Amer) >60 (>=60) Est GFR (Non-Af Amer) >60 (>=60) BUN/Creatinine Ratio 15.2 Glucose 90 (74-106) mg/dL Calcium 9.1 (8.5-10.1) mg/dL Total Bilirubin 0.4 (0.2-1.0) mg/dL AST 15 (15-37) U/L ALT 12 L (14-59) U/L Alkaline Phosphatase 82 (46-116) U/L Troponin I High Sens 4.1 (4.0-51.3) pg/mL NT-Pro-B Natriuret Pep 152.0 (<=450.0) pg/mL Total Protein 6.8 (6.4-8.2) g/dL Albumin 3.2 L (3.4-5.0) g/dL Globulin 3.6 g/dL Albumin/Globulin Ratio 0.[address] scan - chest: Radiologist's impression: ITS Impressions Chest X-Ray 10/28/23 18:53 IMPRESSION: Right IJ approach port with tip in the upper SVC. Pacemaker. Remainder the chest is unremarkable. Electronically authenticated by: EMHRDAD CHEEK Date: 10/28/2023 19:48 Chest CTA 10/28/23 20:30 IMPRESSION: Moderate to large burden of acute bilateral pulmonary emboli with borderline findings for right heart strain. Electronically authenticated by: MEHRDAD CHEEK Date: 10/28/2023 21:48 ADDENDUM: 10/28/23 2159 IMPRESSION: Moderate to large burden of acute bilateral pulmonary emboli with borderline findings for right heart strain. Electronically authenticated by: MEHRDAD CHEEK Date: 10/28/2023 21:57 Discharge Plan Discharge Chief Complaint: Chest Pain Clinical Impression: Pulmonary emboli, Chest pain Patient Disposition: [facility] Time of Disposition Decision: 23:30 Discharge Location: [facility] Condition: Fair
[2023-10-28 19:26] LABS: Basophils Percent Auto 0.4 % (0.2-2.0); Eosinophils Absolute Auto 0.1 10^3/uL (0.0-0.7); Eosinophils Percent Auto 1.1 % (0.9-7.0); Hematocrit 35.3 % (36.0-48.0); Hemoglobin 11.6 g/dL (12.0-16.0); Immature Granulocytes Abs Auto 0.01 10^3/uL (0.00-0.03); Immature Granulocytes Pct Auto 0.2 % (0.0-0.5); Lymphocytes Absolute Auto 1.4 10^3/uL (1.2-3.8); Lymphocytes Percent Auto 25.2 % (20.5-60.0); Mean Corpuscular HGB Conc 32.9 g/dL (29.9-35.2); Mean Corpuscular Hemoglobin 31.8 pg (26.7-34.0); Mean Corpuscular Volume 96.7 fL (81.0-99.0); Mean Platelet Volume 9.4 fL (9.5-13.5); Monocytes Absolute Auto 0.4 10^3/uL (0.3-0.8); Monocytes Percent Auto 7.3 % (1.7-12.0); Neutrophils Absolute Auto 3.6 10^3/uL (1.4-6.5); Neutrophils Percent Auto 65.8 % (43.0-75.0); Platelet Count 154 10^3/uL (150-450); Red Blood Count 3.65 10^6/uL (4.20-5.40); Red Cell Distribution Width 12.8 % (11.0-15.0); White Blood Count 5.5 10^3/uL (4.0-11.0)
[2023-10-28 19:41] LABS: Alanine Aminotransferase 12 U/L (14-59); Albumin Globulin Ratio 0.9; Albumin Level 3.2 g/dL (3.4-5.0); Alkaline Phosphatase 82 U/L (46-116); Anion Gap 10.2; Aspartate Amino Transferase 15 U/L (15-37); BUN Creatinine Ratio 15.2; Bilirubin Total 0.4 mg/dL (0.2-1.0); Calcium 9.1 mg/dL (8.5-10.1); Carbon Dioxide 27.8 mmol/L (21.0-32.0); Chloride 107 mmol/L (98-107); Estimated GFR (African America >60 (>=60); Estimated GFR (Non-African Ame >60 (>=60); Globulin 3.6 g/dL; Glucose 90 mg/dL (74-106); INR 0.98; Partial Thromboplastin Time 26.7 sec (22.3-36.2); Prothrombin Time 10.4 sec (9.0-11.6); Sodium 141 mmol/L (136-145); Total Protein 6.8 g/dL (6.4-8.2)
[2023-10-28 19:49] LABS: Troponin I High Sensitivity 4.1 pg/mL (4.0-51.3)
--- NOTE | 2023-10-28 20:30 | CT_ITS ---
The [address] [address] Patient Name: LISETH ANDERSON MRN: [id number] date: 1980 Sex: F Assigned Patient Location: ER Current Patient Location: Accession/Order Number: [id number] Exam Date: 10/28/2023 20:45 Report Date: 10/28/2023 21:48 At the request of: MARITZA JIANG Procedure: CT angio chest EXAM: CT pulmonary angiogram of the chest using 100 mL of IV iodinated contrast. 3-D imaging was performed. Dose reduction technique used: Automated exposure control and/or adjustment of the mA and/or kV according to patient size and/or use of iterative reconstruction technique. REASON FOR EXAM: Chest pain, dyspnea COMPARISON: CT scan dated 10/26/2023 FINDINGS: Moderate to large burden of acute bilateral pulmonary emboli including emboli in the distal left pulmonary artery, multiple bilateral lobar, segmental and subsegmental pulmonary artery branches. Suggestion of mild leftward bowing of the intraventricular septum. Borderline findings for right heart strain. No aortic dissection. No pneumothorax. No acute airspace opacities. No acute fractures. No concerning pulmonary nodules. No definite lymphadenopathy in the chest. Small bilateral pleural effusions. Right IJ approach port with tip in the low SVC. Pacemaker. Cardiomegaly. Distal esophageal wall thickening. Gastric bypass. Postoperative changes in the stomach. Small esophageal hiatal hernia. Remainder unremarkable. CT/CT angio chest IMPRESSION: Moderate to large burden of acute bilateral pulmonary emboli with borderline findings for right heart strain. Electronically authenticated by: MEHRDAD CHEEK Date: 10/28/2023 21:48
[2023-10-28] MEDS: HEPARIN SODIUM,PORCINE/D5W 25,000 UNIT/500 ML IV.SOLN 28.8000000000000007 UNIT IV (22:40)
[2023-10-28] MEDS: HEPARIN SODIUM (PORCINE) 5,000 UNIT/ML VIAL 6400 UNIT IV (22:41)
[2023-10-29] VITALS (39 sets, daily range): BP systolic 108–160; BP diastolic 59–103; PULSE 60–83; O2SAT 91–97
[2023-10-29 06:15] LABS: PTT Heparin Monitor 102.5 sec (48.2-68.6)
== END 2023-10-29 08:34 | disposition short-term general hospital (02) ==
PROVIDERS: Nurse Practitioner Family; Emergency Provider Emergency Medicine; PCP Family Medicine
DX: I26.99 Other pulmonary embolism without acute cor pulmonale (principal); R07.9 Chest pain, unspecified; I82.4Z2 Acute embolism and thrombosis of unspecified deep veins of left distal lower extremity; I10 Essential (primary) hypertension; F20.9 Schizophrenia, unspecified; E66.9 Obesity, unspecified; K31.84 Gastroparesis; Z90.49 Acquired absence of other specified parts of digestive tract; Z98.890 Other specified postprocedural states; Z95.0 Presence of cardiac pacemaker; Z79.899 Other long term (current) drug therapy; Z68.41 Body mass index [BMI] 40.0-44.9, adult; R06.02 Shortness of breath
CPT/HCPCS: 36415; 71045; 71275; 80053; 83880; 84484; 85025; 85610; 85730; 93005; 96374; 99285; Q9967

== ENCOUNTER 2023-11-21 11:30 | Outpatient (RCR) | payer MEDICARE, MEDICAID, SELFPAY | END 2023-12-18 10:34 | disposition home or self-care (01) | LOC: MM 11:30 | PROVIDERS: PCP Family Medicine; Visit Provider Internal Medicine | DX: Z51.81 Encounter for therapeutic drug level monitoring (principal); Z79.01 Long term (current) use of anticoagulants; I82.409 Acute embolism and thrombosis of unspecified deep veins of unspecified lower extremity ==

== ENCOUNTER 2023-12-08 07:17 | Outpatient (RCR) | payer MEDICARE, MEDICAID, SELFPAY | END 2023-12-09 14:57 | disposition home or self-care (01) | LOC: HEMC 07:17 | PROVIDERS: PCP Family Medicine; Visit Provider Internal Medicine Hematology & Oncology | DX: I26.99 Other pulmonary embolism without acute cor pulmonale (principal); D68.69 Other thrombophilia; D64.9 Anemia, unspecified; K90.9 Intestinal malabsorption, unspecified; I82.402 Acute embolism and thrombosis of unspecified deep veins of left lower extremity | CPT/HCPCS: G0463 ==

== ENCOUNTER 2023-12-21 00:32 | Outpatient (RCR) | payer MEDICARE, MEDICAID, SELFPAY | END 2024-01-20 10:14 | disposition home or self-care (01) | LOC: MM 00:32 | PROVIDERS: PCP Family Medicine; Visit Provider Internal Medicine | DX: Z51.81 Encounter for therapeutic drug level monitoring (principal); Z79.01 Long term (current) use of anticoagulants; I82.409 Acute embolism and thrombosis of unspecified deep veins of unspecified lower extremity | CPT/HCPCS: 85610; G0463 ==

== ENCOUNTER 2023-12-22 07:40 | Outpatient (RCR) | payer MEDICARE, MEDICAID, SELFPAY ==
[2023-12-22 11:30] LABS: C Reactive Protein <0.50 mg/dL (<=0.50)
[2023-12-22 11:31] LABS: Erythrocyte Sedimentation Rate 52 mm/hr (<=20)
[2023-12-22 11:38] LABS: Percent Iron Saturation 8.9 %
[2023-12-24 05:07] LABS: Beta-2 Glycoprotein I Ab, IgA <9 (0-25); Beta-2 Glycoprotein I Ab, IgG <9 (0-20); Beta-2 Glycoprotein I Ab, IgM <9 (0-32)
== END 2024-01-20 23:59 | disposition home or self-care (01) ==
LOC: HEMC 07:40
PROVIDERS: PCP Family Medicine; Visit Provider Internal Medicine Hematology & Oncology
DX: I26.99 Other pulmonary embolism without acute cor pulmonale (principal); D68.69 Other thrombophilia; D64.9 Anemia, unspecified; K90.9 Intestinal malabsorption, unspecified; I82.402 Acute embolism and thrombosis of unspecified deep veins of left lower extremity; D50.9 Iron deficiency anemia, unspecified; Z79.01 Long term (current) use of anticoagulants
CPT/HCPCS: 36415; 81241; 82728; 83540; 83550; 85210; 85652; 86140; 86146; 86147; G0463

== ENCOUNTER 2024-01-13 10:22 | Outpatient (OUT) | payer MEDICARE, MEDICAID, SELFPAY ==
[2024-01-13 12:33] LABS: Basophils Absolute Auto 0.1 10^3/uL (0.0-0.1); Basophils Percent Auto 1.1 % (0.2-2.0); Eosinophils Absolute Auto 0.1 10^3/uL (0.0-0.7); Eosinophils Percent Auto 2.1 % (0.9-7.0); Hemoglobin 11.4 g/dL (12.0-16.0); Immature Granulocytes Abs Auto 0.01 10^3/uL (0.00-0.03); Immature Granulocytes Pct Auto 0.2 % (0.0-0.5); Lymphocytes Absolute Auto 1.4 10^3/uL (1.2-3.8); Lymphocytes Percent Auto 30.2 % (20.5-60.0); Mean Corpuscular HGB Conc 32.6 g/dL (29.9-35.2); Mean Corpuscular Hemoglobin 30.4 pg (26.7-34.0); Mean Corpuscular Volume 93.3 fL (81.0-99.0); Mean Platelet Volume 10.1 fL (9.5-13.5); Monocytes Absolute Auto 0.4 10^3/uL (0.3-0.8); Neutrophils Absolute Auto 2.8 10^3/uL (1.4-6.5); Neutrophils Percent Auto 58.4 % (43.0-75.0); Platelet Count 217 10^3/uL (150-450); Red Blood Count 3.75 10^6/uL (4.20-5.40); Red Cell Distribution Width 12.2 % (11.0-15.0); White Blood Count 4.7 10^3/uL (4.0-11.0)
== END 2024-01-13 10:23 | disposition home or self-care (01) ==
LOC: LAB 10:22
PROVIDERS: PCP Family Medicine; Visit Provider Internal Medicine Hematology & Oncology
DX: I26.99 Other pulmonary embolism without acute cor pulmonale (principal); D68.69 Other thrombophilia; D64.9 Anemia, unspecified; K90.9 Intestinal malabsorption, unspecified; I82.402 Acute embolism and thrombosis of unspecified deep veins of left lower extremity
CPT/HCPCS: 36415; 85025

== ENCOUNTER 2024-01-21 00:37 | Outpatient (RCR) | payer MEDICARE, MEDICAID, SELFPAY | END 2024-02-19 10:18 | disposition home or self-care (01) | LOC: MM 00:37 | PROVIDERS: PCP Family Medicine; Visit Provider Internal Medicine | DX: Z51.81 Encounter for therapeutic drug level monitoring (principal); Z79.01 Long term (current) use of anticoagulants; I82.409 Acute embolism and thrombosis of unspecified deep veins of unspecified lower extremity | CPT/HCPCS: 85610; G0463 ==

== ENCOUNTER 2024-02-03 11:27 | Emergency (ER) | payer MEDICARE, MEDICAID, SELFPAY ==
[2024-02-03] VITALS (19 sets, daily range): BP systolic 115–137; BP diastolic 69–77; PULSE 59–99; TEMP 36.9; O2SAT 92–99; BMI 40.4
--- NOTE | 2024-02-03 11:45 | ECG_ITS ---
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
--- NOTE | 2024-02-03 12:03 | ED_ITS ---
HPI HPI - General Adult General Chief complaint: Extremity Problem, Nontraumatic Stated complaint: UPPER EXTREMITY PAIN Time Seen by Provider: 02/03/24 11:28 Source: patient Mode of arrival: walk-in Limitations: no limitations History of Present Illness HPI narrative: Patient presents To ED complaining of right arm pain. She reports pain in the mid humerus area with swelling. She does have a history of blood clots in the past in her legs. She is on Coumadin and said she had her INR checked today which was 2.3. She does report some mild shortness of breath as well. She denies any trauma to the arm but has pain with range of motion and pain with palpation. 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 Denies neck pain. She said she is then generally feeling not well Related Data Home Medications ?Medication ?Instructions ?Recorded ?Confirmed aripiprazole 30 mg tablet 30 mg PO DAILY 10/26/23 10/26/23 benztropine 1 mg tablet 1 mg PO BID 10/26/23 10/26/23 metoprolol succinate 25 mg 25 mg PO DAILY 10/26/23 10/26/23 tablet,extended release 24 hr mirtazapine 15 mg tablet 15 mg PO .HS 10/26/23 10/26/23 olanzapine 5 mg tablet 5 mg PO .qd PRN hallucinations 10/26/23 10/27/23 paliperidone palmitate 234 mg/1.5 234 mg IM Q30D 10/26/23 10/26/23 mL intramuscular syringe (Invega Sustenna) venlafaxine 150 mg 150 mg PO DAILY 10/26/23 10/26/23 capsule,extended release 24 hr Previous Rx's ?Medication ?Instructions ?Recorded apixaban 5 mg (74 tabs) tablets in See Rx Instructions .Route 10/27/23 a dose pack (Eliquis DVT-PE Treat .COMPLEX #74 ea 30D Start) oxycodone-acetaminophen 5 mg-325 1 tab PO Q6H #10 tabs 02/03/24 mg tablet (Percocet) Allergies Allergy/AdvReac Type Severity Reaction Status Date / Time hydromorphone [From Dilaudid] Allergy Mild itching Verified 02/03/24 11:33 Opioid HPI Opioid Management Most Recent Opioid Data: Last Pain Scale 7 10/27/23 10:00 Last MAR Pain Assessment 08/14/24 12:32 Last ORT Total Score 4 10/26/23 23:12 Last ORT Risk Category Moderate Risk 10/26/23 23:12 Review of Systems ROS Status of ROS 10 or more systems reviewed and unremark able except as noted in history and below PFSH PFS Medical History (Updated 02/03/24 @ 14:21 by Misa Garcia DO) Hypertension ?I10 - Essential (primary) hypertension (ICD-10) Schizophrenia ?F20.9 - Schizophrenia, unspecified (ICD-10) DVT (deep venous thrombosis) ?I82.409 - Acute embolism and thrombosis of unspecified deep veins of unspecified lower extremity (ICD-10) Obesity ?E66.9 - Obesity, unspecified (ICD-10) Pacemaker ?Z95.0 - Presence of cardiac pacemaker (ICD-10) Sick sinus syndrome due to SA node dysfunction ?I49.5 - Sick sinus syndrome (ICD-10) Gastroparesis ?K31.84 - Gastroparesis (ICD-10) Surgical History (Updated 10/27/23 @ 00:09 by Gretta Peterson) S/P reconstruction of ligament of knee ?Z98.890 - Other specified postprocedural states (ICD-10) History of cholecystectomy ?Z90.49 - Acquired absence of other specified parts of digestive tract (ICD- 10) Hx of appendectomy ?Z90.49 - Acquired absence of other specified parts of digestive tract (ICD- 10) Social History (Updated 10/27/23 @ 00:10 by Gretta Peterson) Within the past year, how often did you have a drink containing alcohol: never Score interpretation: A score less than 3 is consistent with normal alcohol consumption. Smoking status: Never smoker Non-prescribed substance use: denies use Highest level of school completed/degree received: high school graduate Are you now , , , , never or living with a partner: living with partner Little interest or pleasure in doing things: several days Feeling down, depressed, or hopeless: several days Feel stressed/tense/nervous/anxious/difficulty sleeping: only a little Life stressor details: new baby at age of 42 Do you think of yourself as: straight/heterosexual Gender Identity: female Exam Narrative Exam Narrative: General: alert, no acute distress, Patient is slightly pale appearing Cardiovascular: regular rate and rhythm, normal peripheral perfusion. Respiratory: Lungs CTA, respirations non labored. Extremities: Mild swelling to the mid humerus. Tenderness to palpation. Normal distal pulses and sensation. 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 Neurological: oriented x 4, LOC appropriate for age. Constitutional Vital Signs, click to edit/add: Last Vital Signs Temp 98.4 F 02/03/24 11:33 Pulse 61 02/03/24 14:40 Resp 15 02/03/24 14:40 BP 115/69 02/03/24 14:40 Pulse Ox 97 02/03/24 14:40 O2 Del Method Room Air 02/03/24 14:40 Course Vital Signs Vital signs: Vital Signs Temperature 98.4 F 02/03/24 11:33 Pulse Rate 99 H 02/03/24 11:33 Respiratory Rate 14 02/03/24 11:33 Blood Pressure 137/77 02/03/24 11:33 Pulse Oximetry 95 02/03/24 11:33 Oxygen Delivery Method Room Air 02/03/24 11:33 Temperature 98.4 F 02/03/24 11:33 Pulse Rate 61 02/03/24 14:40 Respiratory Rate 15 02/03/24 14:40 Blood Pressure 115/69 02/03/24 14:40 Pulse Oximetry 97 02/03/24 14:40 Oxygen Delivery Method Room Air 02/03/24 14:40 Medical Decision Making MDM Narrative Medical decision making narrative: Patient's x-ray was negative for acute. Vascular study shows no DVT or SVT. Patient was concerned about a blood clot which we have cleared for her. She is on Coumadin and her INR is therapeutic. She does have some degenerative changes on the x-ray in the shoulder joint which may be causing some of the pain. Patient instructed to take Tylenol and Motrin for pain. If this is not enough she did request some thing stronger for pain and was written a prescription for Percocet. Return to ED if worsening symptoms Differential Diagnosis Differential Diagnosis: Fracture sprain strain blood clot Medical Records Medical records reviewed: Yes I reviewed the patient's medical records Lab Data Lab results reviewed: Yes I reviewed the patient's lab results Labs: Lab Results 02/03/24 02/03/24 02/03/24 Range/Units 12:06 12:09 12:48 WBC 4.9 (4.0-11.0) 10^3/uL RBC 3.97 L (4.20-5.40) 10^6/uL Hgb 12.3 (12.0-16.0) g/dL Hct 37.3 (36.0-48.0) % MCV 94.0 (81.0-99.0) fL MCH 31.0 (26.7-34.0) pg MCHC 33.0 (29.9-35.2) g/dL RDW 14.6 (11.0-15.0) % Plt Count 147 L (150-450) 10^3/uL MPV 10.9 (9.5-13.5) fL Neut % (Auto) 71.9 (43.0-75.0) % Lymph % (Auto) 19.7 L (20.5-60.0) % [place] % (Auto) 7.2 (1.7-12.0) % Eos % (Auto) 0.6 L (0.9-7.0) % Baso % (Auto) 0.4 (0.2-2.0) % Neut # (Auto) 3.5 (1.4-6.5) 10^3/uL Lymph # (Auto) 1.0 L (1.2-3.8) 10^3/uL [place] # (Auto) 0.4 (0.3-0.8) 10^3/uL Eos # (Auto) 0.0 (0.0-0.7) 10^3/uL Baso # (Auto) 0.0 (0.0-0.1) 10^3/uL Abs Immat Gran (auto) 0.01 (0.00-0.03) 10^3/uL Imm/Tot Granulo (auto) 0.2 (0.0-0.5) % Sodium 139 (136-145) mmol/L Potassium 3.8 (3.5-5.1) mmol/L Chloride 107 (98-107) mmol/L Carbon Dioxide 24.2 (21.0-32.0) mmol/L Anion Gap 11.6 BUN 7.0 (7.0-18.0) mg/dL Creatinine 0.82 (0.55-1.02) mg/dL Est GFR ( Amer) >60 (>=60) Est GFR (Non-Af Amer) >60 (>=60) BUN/Creatinine Ratio 8.5 Glucose 95 (74-106) mg/dL Calcium 8.7 (8.5-10.1) mg/dL Total Bilirubin 0.3 (0.2-1.0) mg/dL AST 27 (15-37) U/L ALT 26 (14-59) U/L Alkaline Phosphatase 62 (46-116) U/L Troponin I High Sens <4.0 L (4.0-51.3) pg/mL Total Protein 6.3 L (6.4-8.2) g/dL Albumin 3.2 L (3.4-5.0) g/dL Globulin 3.1 g/dL Albumin/Globulin Ratio 1.0 SARS-CoV-2 Ag (CV2AG) Negative (NEGATIVE) Imaging Data Chest x-ray: Radiologist's impression: ITS Impressions Venous Doppler Study 02/03/24 12:40 IMPRESSION: No deep or superficial vein thrombus in the right arm Electronically authenticated by: ANUM LARSON Date: 02/03/2024 13:12 Chest X-Ray 02/03/24 13:17 IMPRESSION: No acute cardiopulmonary process Electronically authenticated by: ANUM LARSON Date: 02/03/2024 13:48 Humerus X-Ray 02/03/24 13:17 IMPRESSION: Mild right AC joint degenerative change. Right humerus radiographs are otherwise unremarkable. Electronically authenticated by: MEHRDAD CHEEK Date: 02/03/2024 13:49 ECG Data Attestation: I personally reviewed and interpreted this ECG as follows: Interpretation: EKG INTERPRETATION Time: []1211 Rate: []71 Rhythm: _ Normal sinus rhythm ST segments: _ []No acute ST elevation or depression T waves: _ [] Ectopy: _ [] P wave/RI interval: _ [] QRS interval: _ [] QT interval: _ [] Comparison: _ [] Comparison EKG date: [] Performed by: [self] Discharge Plan Discharge Stand Alone Forms: Portal Instructions Chief Complaint: Extremity Problem, Nontraumatic Clinical Impression: Arm pain Patient Disposition: Home, Self-Care Time of Disposition Decision: 14:21 Condition: Good Mode of Transportation: Private Vehicle Prescriptions / Home Meds: New oxycodone-acetaminophen [Percocet] 5-325 mg tablet 1 tab PO Q6H Qty: 10 0RF No Action olanzapine 5 mg tablet 5 mg PO .qd PRN (Reason: hallucinations) venlafaxine 150 mg capsule,extended release 24hr 150 mg PO DAILY benztropine 1 mg tablet 1 mg PO BID mirtazapine 15 mg tablet 15 mg PO .HS metoprolol succinate 25 mg tablet extended release 24 hr 25 mg PO DAILY aripiprazole 30 mg tablet 30 mg PO DAILY Invega Sustenna 234 mg/1.5 mL syringe 234 mg IM Q30D Eliquis DVT-PE Treat 30D Start 5 mg (74 tabs) tablets,dose pack See Rx Instructions .ROUTE .COMPLEX Qty: 74 0RF Rx Instructions: 10 mg twice daily x 7 days, then 5 mg twice daily Print Language: Moldovan Instructions: Arm Pain (ED) Referrals: Sharyn Bradford MD [Primary Care Provider] - 1 week Discharge Date/Time: 02/03/24 14:46
[2024-02-03] MEDS: 0.9 % SODIUM CHLORIDE 1,000 ML 1000 ML IV (12:32)
[2024-02-03] MEDS: KETOROLAC TROMETHAMINE 30 MG/ML VIAL 15 MG IVP (12:32)
--- NOTE | 2024-02-03 12:40 | US_ITS ---
[address] [address] Patient Name: LISETH ANDERSON MRN: [id number] date: 1980 Sex: F Assigned Patient Location: ER Current Patient Location: ER Accession/Order Number: [id number] Exam Date: 02/03/2024 12:40 Report Date: 02/03/2024 13:12 At the request of: CARA MOSQUEDA Procedure: US venous doppler UE RT EXAM: US venous doppler UE RT HISTORY: R arm pain COMPARISON: None. TECHNIQUE: Grayscale and color ultrasound FINDINGS: Region: Right arm Thrombus: None Flow: Normal Augmentation: Normal Compressibility: Normal US/US venous doppler UE RT IMPRESSION: No deep or superficial vein thrombus in the right arm Electronically authenticated by: ANUM LARSON Date: 02/03/2024 13:12
[2024-02-03 12:46] LABS: Basophils Percent Auto 0.4 % (0.2-2.0); Eosinophils Percent Auto 0.6 % (0.9-7.0); Hematocrit 37.3 % (36.0-48.0); Hemoglobin 12.3 g/dL (12.0-16.0); Immature Granulocytes Abs Auto 0.01 10^3/uL (0.00-0.03); Immature Granulocytes Pct Auto 0.2 % (0.0-0.5); Lymphocytes Percent Auto 19.7 % (20.5-60.0); Mean Platelet Volume 10.9 fL (9.5-13.5); Monocytes Absolute Auto 0.4 10^3/uL (0.3-0.8); Monocytes Percent Auto 7.2 % (1.7-12.0); Neutrophils Absolute Auto 3.5 10^3/uL (1.4-6.5); Neutrophils Percent Auto 71.9 % (43.0-75.0); Platelet Count 147 10^3/uL (150-450); Red Blood Count 3.97 10^6/uL (4.20-5.40); Red Cell Distribution Width 14.6 % (11.0-15.0); White Blood Count 4.9 10^3/uL (4.0-11.0)
[2024-02-03 13:01] LABS: Internal Control Within Normal Limits; SARS-CoV-2 Ag NEGATIVE (NEGATIVE)
[2024-02-03 13:17] LABS: Alanine Aminotransferase 26 U/L (14-59); Albumin Level 3.2 g/dL (3.4-5.0); Alkaline Phosphatase 62 U/L (46-116); Anion Gap 11.6; Aspartate Amino Transferase 27 U/L (15-37); BUN Creatinine Ratio 8.5; Bilirubin Total 0.3 mg/dL (0.2-1.0); Calcium 8.7 mg/dL (8.5-10.1); Carbon Dioxide 24.2 mmol/L (21.0-32.0); Chloride 107 mmol/L (98-107); Estimated GFR (African America >60 (>=60); Estimated GFR (Non-African Ame >60 (>=60); Globulin 3.1 g/dL; Glucose 95 mg/dL (74-106); Potassium 3.8 mmol/L (3.5-5.1); Sodium 139 mmol/L (136-145); Total Protein 6.3 g/dL (6.4-8.2); Troponin I High Sensitivity <4.0 pg/mL (4.0-51.3)
--- NOTE | 2024-02-03 13:17 | XR_ITS ---
The [address] [address] Patient Name: LISETH ANDERSON MRN: [id number] date: 1980 Sex: F Assigned Patient Location: ER Current Patient Location: ED.MAIN Accession/Order Number: [id number] Exam Date: 02/03/2024 13:04 Report Date: 02/03/2024 13:48 At the request of: CARA MOSQUEDA Procedure: XR chest 2V EXAMINATION: XR chest 2V HISTORY: sob COMPARISON: No relevant comparison available. TECHNIQUE: PA and lateral FINDINGS: LUNGS: No significant pulmonary parenchymal abnormalities. VASCULATURE: No increased pulmonary vasculature. PLEURA: No pneumothorax, effusion, or pleural thickening. CARDIAC: No cardiomegaly or cardiac silhouette abnormality. MEDIASTINUM: No visible mass or adenopathy. Left pacemaker. Right Port-A-Cath BONES: No fracture or visible bone lesion. OTHER: Negative. XR/XR chest 2V IMPRESSION: No acute cardiopulmonary process Electronically authenticated by: ANUM LARSON Date: 02/03/2024 13:48
--- NOTE | 2024-02-03 13:17 | XR_ITS ---
The [address] [address] Patient Name: LISETH ANDERSON MRN: [id number] date: 1980 Sex: F Assigned Patient Location: ER Current Patient Location: ED.MAIN Accession/Order Number: [id number] Exam Date: 02/03/2024 13:04 Report Date: 02/03/2024 13:49 At the request of: CARA MOSQUEDA Procedure: XR humerus RT Exam: Radiographs: XR humerus RT Reason for exam: R arm pain Comparison: None XR/XR humerus RT IMPRESSION: Mild right AC joint degenerative change. Right humerus radiographs are otherwise unremarkable. Electronically authenticated by: MEHRDAD CHEEK Date: 02/03/2024 13:49
== END 2024-02-03 14:46 | disposition home or self-care (01) ==
PROVIDERS: Emergency Provider Emergency Medicine; PCP Family Medicine
DX: M79.601 Pain in right arm (principal); Z79.01 Long term (current) use of anticoagulants; Z86.718 Personal history of other venous thrombosis and embolism; Z20.822 Contact with and (suspected) exposure to COVID-19
CPT/HCPCS: 36415; 71046; 73060; 80053; 84484; 85025; 87811; 93005; 93971; 96374; 99285; J1885

== ENCOUNTER 2024-02-09 07:26 | Outpatient (RCR) | payer MEDICARE, MEDICAID, SELFPAY ==
[2024-01-21 09:16] VITALS: BP 121/81; PULSE 99; TEMP 36.2
--- NOTE | 2024-01-21 09:17 | PC.NURSE ---
0900 ambulatory to chair 1, alert oriented. educated on process of receiving infusion, verbalizes understanding.
[2024-01-21] MEDS: diphenhydrAMINE HCL 25 MG, HYDROCORTISONE SODIUM SUCC/PF 100 MG in 0.9 % SODIUM CHLORID... 307.5 MG IV (09:32)
[2024-01-21] MEDS: ACETAMINOPHEN 500 MG TABLET 1000 MG PO (09:33)
--- NOTE | 2024-01-21 09:40 | PC.NURSE ---
0935 tylenol po, bendadryl and hydrocortisone iv initiated, meal ordered
[2024-01-21] MEDS: IRON DEXTRAN COMPLEX 100 MG/2 ML VIAL 25 MG IVP (09:57)
[2024-01-21] MEDS: IRON DEXTRAN COMPLEX IV (10:53)
[2024-01-21] MEDS: SODIUM CHLORIDE 0.9% IV (10:53)
--- NOTE | 2024-01-21 10:56 | PC.NURSE ---
toerated test dose no s/s of reaction. regular dose initiated at 175 ml hr
[2024-01-21 11:44] VITALS: BP 111/73; PULSE 60; TEMP 36.5; O2SAT 97
--- NOTE | 2024-01-21 11:45 | PC.NURSE ---
tolerating infusion without any s/s of reaction. up to restroom, vs obtained
[2024-02-09 10:08] LABS: Eosinophils Absolute Auto 0.1 10^3/uL (0.0-0.7); Eosinophils Percent Auto 2.2 % (0.9-7.0); Hemoglobin 12.4 g/dL (12.0-16.0); Lymphocytes Absolute Auto 1.1 10^3/uL (1.2-3.8); Lymphocytes Percent Auto 26.5 % (20.5-60.0); Mean Corpuscular HGB Conc 32.6 g/dL (29.9-35.2); Mean Corpuscular Hemoglobin 31.2 pg (26.7-34.0); Mean Corpuscular Volume 95.5 fL (81.0-99.0); Mean Platelet Volume 9.9 fL (9.5-13.5); Monocytes Absolute Auto 0.3 10^3/uL (0.3-0.8); Monocytes Percent Auto 7.2 % (1.7-12.0); Neutrophils Absolute Auto 2.6 10^3/uL (1.4-6.5); Neutrophils Percent Auto 63.1 % (43.0-75.0); Platelet Count 183 10^3/uL (150-450); Red Blood Count 3.98 10^6/uL (4.20-5.40)
== END 2024-02-20 23:59 | disposition home or self-care (01) ==
LOC: HEMC 07:26
PROVIDERS: PCP Family Medicine; Visit Provider Internal Medicine Hematology & Oncology
DX: I26.99 Other pulmonary embolism without acute cor pulmonale (principal); D68.69 Other thrombophilia; D64.9 Anemia, unspecified; K90.9 Intestinal malabsorption, unspecified; I82.402 Acute embolism and thrombosis of unspecified deep veins of left lower extremity; D50.9 Iron deficiency anemia, unspecified
CPT/HCPCS: 36415; 82306; 82607; 82728; 83540; 83550; 85025; 96365; 96366; 96367; 96376; G0463; J1200; J1720; J1750

== ENCOUNTER 2024-02-22 01:45 | Outpatient (RCR) | payer MEDICARE, MEDICAID, SELFPAY | END 2024-03-21 23:46 | disposition home or self-care (01) | LOC: MM 01:45 | PROVIDERS: PCP Family Medicine; Visit Provider Internal Medicine | DX: Z51.81 Encounter for therapeutic drug level monitoring (principal); Z79.01 Long term (current) use of anticoagulants; I82.409 Acute embolism and thrombosis of unspecified deep veins of unspecified lower extremity | CPT/HCPCS: 85610; G0463 ==

== ENCOUNTER 2024-03-21 10:05 | Emergency (ER) | payer MEDICARE, MEDICAID, SELFPAY ==
[2024-03-21 10:09] VITALS: PULSE 127; TEMP 37.2; O2SAT 97; BMI 40.4
[2024-03-21 10:17] VITALS: BP 134/87
--- NOTE | 2024-03-21 10:20 | ECG_ITS ---
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
--- NOTE | 2024-03-21 10:21 | ED.GENADUL1 ---
HPI HPI - General Adult General Chief complaint: Headache Stated complaint: FACIAL SWELLING Time Seen by Provider: 03/21/24 10:16 Source: patient Mode of arrival: walk-in Limitations: no limitations History of Present Illness HPI narrative: 43-year-old female presents for swelling to her face which she noticed this morning when she woke up. Its mostly on the left side of her face. No difficulty breathing or swallowing. She states that she has very bad teeth from gastroparesis and she vomits a lot. No generalized rash and she has not been on any new medications. Related Data Home Medications ?Medication ?Instructions ?Recorded ?Confirmed aripiprazole 30 mg tablet 30 mg PO DAILY 10/26/23 03/21/24 benztropine 1 mg tablet 1 mg PO BID 10/26/23 03/21/24 metoprolol succinate 25 mg 25 mg PO DAILY 10/26/23 03/21/24 tablet,extended release 24 hr mirtazapine 15 mg tablet 15 mg PO .HS 10/26/23 03/21/24 olanzapine 5 mg tablet 5 mg PO .qd PRN hallucinations 10/26/23 03/21/24 paliperidone palmitate 234 mg/1.5 234 mg IM Q30D 10/26/23 03/21/24 mL intramuscular syringe (Invega Sustenna) venlafaxine 150 mg 150 mg PO DAILY 10/26/23 03/21/24 capsule,extended release 24 hr warfarin 5 mg tablet 5 mg PO DAILY 03/21/24 03/21/24 Previous Rx's ?Medication ?Instructions ?Recorded clindamycin HCl 300 mg capsule 300 mg PO Q6H 10 days #40 caps 03/21/24 Allergies Allergy/AdvReac Type Severity Reaction Status Date / Time hydromorphone [From Dilaudid] Allergy Mild itching Verified 03/21/24 10:09 Opioid HPI Opioid Management Most Recent Opioid Data: Last Pain Scale 7 10/27/23 10:00 Last ORT Total Score 4 10/26/23 23:12 Last ORT Risk Category Moderate Risk 10/26/23 23:12 Review of Systems ROS Narrative A ten point review of systems is negative except as noted above. [facility] Medical History (Updated 03/21/24 @ 11:45 by Francesco Musa MD) Hypertension ?I10 - Essential (primary) hypertension (ICD-10) Schizophrenia ?F20.9 - Schizophrenia, unspecified (ICD-10) DVT (deep venous thrombosis) ?I82.409 - Acute embolism and thrombosis of unspecified deep veins of unspecified lower extremity (ICD-10) Obesity ?E66.9 - Obesity, unspecified (ICD-10) Pacemaker ?Z95.0 - Presence of cardiac pacemaker (ICD-10) Sick sinus syndrome due to SA node dysfunction ?I49.5 - Sick sinus syndrome (ICD-10) Gastroparesis ?K31.84 - Gastroparesis (ICD-10) Surgical History (Updated 10/27/23 @ 00:09 by Gretta Peterson) S/P reconstruction of ligament of knee ?Z98.890 - Other specified postprocedural states (ICD-10) History of cholecystectomy ?Z90.49 - Acquired absence of other specified parts of digestive tract (ICD-10) Hx of appendectomy ?Z90.49 - Acquired absence of other specified parts of digestive tract (ICD-10) Social History (Updated 10/27/23 @ 00:10 by Gretta Peterson) Within the past year, how often did you have a drink containing alcohol: never Score interpretation: A score less than 3 is consistent with normal alcohol consumption. Smoking status: Never smoker Non-prescribed substance use: denies use Highest level of school completed/degree received: high school graduate Are you now , , , , never or living with a partner: living with partner Little interest or pleasure in doing things: not at all Feeling down, depressed, or hopeless: not at all Feel stressed/tense/nervous/anxious/difficulty sleeping: only a little Life stressor details: new baby at age of 42 Do you think of yourself as: straight/heterosexual Gender Identity: female Exam Narrative Exam Narrative: Nurses note and vital signs reviewed and patient is not hypoxic. General: The patient appears well and in no apparent distress. Patient is resting comfortably on cart. Skin: Warm, dry, no pallor noted. There is no rash noted. Head: Normocephalic, atraumatic Eye: Normal conjunctiva, no drainage Ears, Nose, Mouth, and Throat: oral mucosa is moist. Nares patent. She has very mild swelling on the left side of her face primarily below her left eye and lateral to her nose. There is no swelling to the floor of her mouth and she is handling her oral secretions well. There is no erythema of the face. She has very poor dental condition with many teeth missing and many eroded down to the gumline. No bleeding or pus present. Cardiovascular: Regular Rate and Rhythm Respiratory: Patient is in no distress, no accessory muscle use, lungs are clear to auscultation, no wheezing, rales or rhonchi Back: non-tender GI: Soft and nontender Musculoskeletal: The patient has no evidence of calf tenderness, no pitting edema, symmetrical pulses noted bilaterally Neurological: A&O, normal speech Psychiatric: Cooperative Constitutional Vital Signs, click to edit/add: Last Vital Signs Temp 98.9 F 03/21/24 10:09 Pulse 127 H 03/21/24 10:09 Resp 20 03/21/24 10:09 BP 116/84 03/21/24 10:30 Pulse Ox 97 03/21/24 10:09 O2 Del Method Room Air 03/21/24 10:09 Course Vital Signs Vital signs: Vital Signs Temperature 98.9 F 03/21/24 10:09 Pulse Rate 127 H 03/21/24 10:09 Respiratory Rate 20 03/21/24 10:09 Pulse Oximetry 97 03/21/24 10:09 Oxygen Delivery Method Room Air 03/21/24 10:09 Temperature 98.9 F 03/21/24 10:09 Pulse Rate 127 H 03/21/24 10:09 Respiratory Rate 20 03/21/24 10:09 Blood Pressure 116/84 03/21/24 10:30 Pulse Oximetry 97 03/21/24 10:09 Oxygen Delivery Method Room Air 03/21/24 10:09 Medical Decision Making [facility] Narrative Medical decision making narrative: My clinical impression is that the swelling is from her dental issue. There is no evidence of Michael angina. Heart rate has come down and is now in the upper 60s. Blood work is essentially normal. She was given IV clindamycin and sent home on clindamycin and instructions to have prompt follow-up with her dentist. Treatment diagnosis and follow-up were discussed with the patient. Differential Diagnosis Differential Diagnosis: Dental caries, allergic reaction, Michael angina Lab Data Lab results reviewed: Yes I reviewed the patient's lab results Labs: Lab Results 03/21/24 Range/Units 10:45 WBC 4.9 (4.0-11.0) 10^3/uL RBC 4.12 L (4.20-5.40) 10^6/uL Hgb 13.2 (12.0-16.0) g/dL Hct 38.8 (36.0-48.0) % MCV 94.2 (81.0-99.0) fL MCH 32.0 (26.7-34.0) pg MCHC 34.0 (29.9-35.2) g/dL RDW 15.4 H (11.0-15.0) % Plt Count 159 (150-450) 10^3/uL MPV 9.3 L (9.5-13.5) fL Neut % (Auto) 67.5 (43.0-75.0) % Lymph % (Auto) 24.5 (20.5-60.0) % [place] % (Auto) 6.0 (1.7-12.0) % Eos % (Auto) 1.6 (0.9-7.0) % Baso % (Auto) 0.2 (0.2-2.0) % Neut # (Auto) 3.3 (1.4-6.5) 10^3/uL Lymph # (Auto) 1.2 (1.2-3.8) 10^3/uL [place] # (Auto) 0.3 (0.3-0.8) 10^3/uL Eos # (Auto) 0.1 (0.0-0.7) 10^3/uL Baso # (Auto) 0.0 (0.0-0.1) 10^3/uL Abs Immat Gran (auto) 0.01 (0.00-0.03) 10^3/uL Imm/Tot Granulo (auto) 0.2 (0.0-0.5) % Sodium 137 (136-145) mmol/L Potassium 3.6 (3.5-5.1) mmol/L Chloride 103 (98-107) mmol/L Carbon Dioxide 26.4 (21.0-32.0) mmol/L Anion Gap 11.2 BUN 11.0 (7.0-18.0) mg/dL Creatinine 1.02 (0.55-1.02) mg/dL Est GFR ( Amer) >60 (>=60) Est GFR (Non-Af Amer) 60 (>=60) BUN/Creatinine Ratio 10.8 Glucose 93 (74-106) mg/dL Calcium 9.2 (8.5-10.1) mg/dL ECG Data Attestation: I personally reviewed and interpreted this ECG as follows: (EKG on my interpretation shows sinus tachycardia with a rate of 89) Discharge Plan Discharge Chief Complaint: Headache Clinical Impression: Dental caries Patient Disposition: Home, Self-Care Time of Disposition Decision: 11:45 Condition: Good Mode of Transportation: Private Vehicle Prescriptions / Home Meds: New clindamycin HCl 300 mg capsule 300 mg PO Q6H 10 Days Qty: 40 0RF No Action olanzapine 5 mg tablet 5 mg PO .qd PRN (Reason: hallucinations) venlafaxine 150 mg capsule,extended release 24hr 150 mg PO DAILY benztropine 1 mg tablet 1 mg PO BID mirtazapine 15 mg tablet 15 mg PO .HS metoprolol succinate 25 mg tablet extended release 24 hr 25 mg PO DAILY aripiprazole 30 mg tablet 30 mg PO DAILY Invega Sustenna 234 mg/1.5 mL syringe 234 mg IM Q30D warfarin 5 mg tablet 5 mg PO DAILY Print Language: Ukrainian Instructions: Toothache (ED), Tooth Extraction (DC) Additional Instructions: Follow-up with your dentist as soon as possible Referrals: Sharyn Bradford MD [Primary Care Provider] - 1 week
[2024-03-21 10:30] VITALS: BP 116/84
[2024-03-21 10:53] LABS: Basophils Percent Auto 0.2 % (0.2-2.0); Eosinophils Absolute Auto 0.1 10^3/uL (0.0-0.7); Eosinophils Percent Auto 1.6 % (0.9-7.0); Hematocrit 38.8 % (36.0-48.0); Hemoglobin 13.2 g/dL (12.0-16.0); Immature Granulocytes Abs Auto 0.01 10^3/uL (0.00-0.03); Immature Granulocytes Pct Auto 0.2 % (0.0-0.5); Lymphocytes Absolute Auto 1.2 10^3/uL (1.2-3.8); Lymphocytes Percent Auto 24.5 % (20.5-60.0); Mean Corpuscular Volume 94.2 fL (81.0-99.0); Mean Platelet Volume 9.3 fL (9.5-13.5); Monocytes Absolute Auto 0.3 10^3/uL (0.3-0.8); Neutrophils Absolute Auto 3.3 10^3/uL (1.4-6.5); Neutrophils Percent Auto 67.5 % (43.0-75.0); Platelet Count 159 10^3/uL (150-450); Red Blood Count 4.12 10^6/uL (4.20-5.40); Red Cell Distribution Width 15.4 % (11.0-15.0); White Blood Count 4.9 10^3/uL (4.0-11.0)
[2024-03-21 11:03] LABS: Anion Gap 11.2; BUN Creatinine Ratio 10.8; Calcium 9.2 mg/dL (8.5-10.1); Carbon Dioxide 26.4 mmol/L (21.0-32.0); Chloride 103 mmol/L (98-107); Estimated GFR (African America >60 (>=60); Estimated GFR (Non-African Ame 60 (>=60); Glucose 93 mg/dL (74-106); Potassium 3.6 mmol/L (3.5-5.1); Sodium 137 mmol/L (136-145)
[2024-03-21] MEDS: CLINDAMYCIN PHOSPHATE/D5W 900 MG/50 ML PREMIX 100 MG IV (11:06)
== END 2024-03-21 11:58 | disposition home or self-care (01) ==
PROVIDERS: Emergency Provider Emergency Medicine; PCP Family Medicine
DX: K02.9 Dental caries, unspecified (principal); K31.84 Gastroparesis
CPT/HCPCS: 36415; 80048; 85025; 93005; 96365; 99284; J0736

== ENCOUNTER 2024-03-22 02:41 | Outpatient (RCR) | payer MEDICARE, MEDICAID, SELFPAY | END 2024-04-21 23:40 | disposition home or self-care (01) | LOC: MM 02:41 | PROVIDERS: PCP Family Medicine; Visit Provider Internal Medicine | DX: Z51.81 Encounter for therapeutic drug level monitoring (principal); Z79.01 Long term (current) use of anticoagulants; I82.409 Acute embolism and thrombosis of unspecified deep veins of unspecified lower extremity | CPT/HCPCS: 85610; G0463 ==

== ENCOUNTER 2024-04-22 13:30 | Outpatient (RCR) | payer MEDICARE, MEDICAID, SELFPAY | END 2024-05-21 23:59 | disposition home or self-care (01) | LOC: MM 13:30 | PROVIDERS: PCP Family Medicine; Visit Provider Internal Medicine | DX: Z51.81 Encounter for therapeutic drug level monitoring (principal); Z79.01 Long term (current) use of anticoagulants; I82.409 Acute embolism and thrombosis of unspecified deep veins of unspecified lower extremity | CPT/HCPCS: 85610; G0463 ==

== ENCOUNTER 2024-05-05 07:40 | Outpatient (RCR) | payer MEDICARE, MEDICAID, SELFPAY | END 2024-05-12 09:10 | disposition home or self-care (01) | LOC: HEMC 07:40 | PROVIDERS: PCP Family Medicine; Visit Provider Internal Medicine Hematology & Oncology | DX: I26.99 Other pulmonary embolism without acute cor pulmonale (principal); D68.69 Other thrombophilia; D64.9 Anemia, unspecified; K90.9 Intestinal malabsorption, unspecified; I82.402 Acute embolism and thrombosis of unspecified deep veins of left lower extremity; D50.9 Iron deficiency anemia, unspecified | CPT/HCPCS: G0463 ==

== ENCOUNTER 2024-05-23 06:11 | Outpatient (RCR) | payer MEDICARE, MEDICAID, SELFPAY | END 2024-06-21 09:08 | disposition home or self-care (01) | LOC: MM 06:11 | PROVIDERS: PCP Family Medicine; Visit Provider Internal Medicine | DX: Z51.81 Encounter for therapeutic drug level monitoring (principal); Z79.01 Long term (current) use of anticoagulants; I82.409 Acute embolism and thrombosis of unspecified deep veins of unspecified lower extremity | CPT/HCPCS: 85610; G0463 ==

== ENCOUNTER 2024-06-02 08:58 | Outpatient (OUT) | payer MEDICARE, MEDICAID, SELFPAY ==
[2024-06-02 11:14] LABS: Chol HDL Ratio 2.6; Cholesterol 186 mg/dL (<=200); HDL Cholesterol 72 mg/dL (40-60); Triglycerides 86 mg/dL (<=150); VLDL CHOLESTEROL 17.2 mg/dL
[2024-06-02 11:38] LABS: Estimated Average Glucose 117 mg/dL; Glycohemoglobin A1C 5.7 % (4.5-6.2)
== END 2024-06-02 08:59 | disposition home or self-care (01) ==
LOC: LAB 09:00
PROVIDERS: PCP Family Medicine; Visit Provider Psychiatry & Neurology Psychiatry
DX: F32.9 Major depressive disorder, single episode, unspecified (principal); Z79.899 Other long term (current) drug therapy
CPT/HCPCS: 80061; 83036

== ENCOUNTER 2024-06-02 09:03 | Outpatient (OUT) | payer MEDICARE, MEDICAID, SELFPAY ==
[2024-06-02 09:37] LABS: Basophils Percent Auto 0.8 % (0.2-2.0); Eosinophils Absolute Auto 0.2 10^3/uL (0.0-0.7); Eosinophils Percent Auto 3.9 % (0.9-7.0); Hematocrit 41.9 % (36.0-48.0); Hemoglobin 14.4 g/dL (12.0-16.0); Immature Granulocytes Abs Auto 0.01 10^3/uL (0.00-0.03); Immature Granulocytes Pct Auto 0.2 % (0.0-0.5); Lymphocytes Absolute Auto 1.7 10^3/uL (1.2-3.8); Lymphocytes Percent Auto 33.8 % (20.5-60.0); Mean Corpuscular HGB Conc 34.4 g/dL (29.9-35.2); Mean Corpuscular Hemoglobin 33.7 pg (26.7-34.0); Mean Corpuscular Volume 98.1 fL (81.0-99.0); Monocytes Absolute Auto 0.3 10^3/uL (0.3-0.8); Monocytes Percent Auto 6.1 % (1.7-12.0); Neutrophils Absolute Auto 2.8 10^3/uL (1.4-6.5); Neutrophils Percent Auto 55.2 % (43.0-75.0); Platelet Count 181 10^3/uL (150-450); Red Blood Count 4.27 10^6/uL (4.20-5.40); Red Cell Distribution Width 12.7 % (11.0-15.0); White Blood Count 5.1 10^3/uL (4.0-11.0)
[2024-06-02 10:46] LABS: Percent Iron Saturation 39.2 %
[2024-06-02 11:48] LABS: Calcium 9.1 mg/dL (8.5-10.1); Carbon Dioxide 29.9 mmol/L (21.0-32.0); Chloride 105 mmol/L (98-107); Estimated GFR (African America >60 (>=60 mL/min/1.73m^2); Estimated GFR (Non-African Ame 51 (>=60 mL/min/1.73m^2); Glucose 101 mg/dL (74-106); Potassium 3.9 mmol/L (3.5-5.1); Sodium 141 mmol/L (136-145)
[2024-06-03 08:10] LABS: Vitamin B12 241 pg/mL (232-1245)
== END 2024-06-02 09:04 | disposition home or self-care (01) ==
LOC: LAB 09:05
PROVIDERS: PCP Family Medicine; Visit Provider Internal Medicine Hematology & Oncology
DX: I26.99 Other pulmonary embolism without acute cor pulmonale (principal); D68.69 Other thrombophilia; D64.9 Anemia, unspecified; K90.9 Intestinal malabsorption, unspecified; I82.402 Acute embolism and thrombosis of unspecified deep veins of left lower extremity; D50.9 Iron deficiency anemia, unspecified; F32.9 Major depressive disorder, single episode, unspecified; Z79.899 Other long term (current) drug therapy; Z51.81 Encounter for therapeutic drug level monitoring; Z79.01 Long term (current) use of anticoagulants; I82.409 Acute embolism and thrombosis of unspecified deep veins of unspecified lower extremity
CPT/HCPCS: 80048; 80061; 82306; 82607; 82728; 83036; 83540; 83550; 85025; 85610

== ENCOUNTER 2024-06-20 07:36 | Outpatient (RCR) | payer MEDICARE, MEDICAID, SELFPAY ==
[2024-06-17] MEDS: CYANOCOBALAMIN 1,000 MCG/ML VIAL 1000 MCG IM (11:15)
[2024-06-20 10:35] VITALS: BP 118/83; PULSE 93; TEMP 36.8; O2SAT 96
[2024-06-20] MEDS: CYANOCOBALAMIN 1,000 MCG/ML VIAL 1000 MCG IM (11:01)
== END 2024-06-20 12:35 | disposition home or self-care (01) ==
LOC: HEMC 07:36
PROVIDERS: PCP Family Medicine; Visit Provider Internal Medicine Hematology & Oncology
DX: D50.9 Iron deficiency anemia, unspecified (principal); D51.9 Vitamin B12 deficiency anemia, unspecified; I26.99 Other pulmonary embolism without acute cor pulmonale; D68.69 Other thrombophilia; D64.9 Anemia, unspecified; K90.9 Intestinal malabsorption, unspecified; I82.402 Acute embolism and thrombosis of unspecified deep veins of left lower extremity; Z98.84 Bariatric surgery status; Z95.0 Presence of cardiac pacemaker
CPT/HCPCS: 96372; G0463; J3420

== ENCOUNTER 2024-06-23 01:52 | Outpatient (RCR) | payer MEDICARE, MEDICAID, SELFPAY | END 2024-07-22 14:30 | disposition home or self-care (01) | LOC: MM 01:52 | PROVIDERS: PCP Family Medicine; Visit Provider Internal Medicine | DX: Z51.81 Encounter for therapeutic drug level monitoring (principal); Z79.01 Long term (current) use of anticoagulants; I82.409 Acute embolism and thrombosis of unspecified deep veins of unspecified lower extremity | CPT/HCPCS: 85610; G0463 ==

== ENCOUNTER 2024-06-27 11:03 | Outpatient (OUT) | payer MEDICARE, OTHER, SELFPAY ==
--- NOTE | 2024-06-27 12:56 | PM.CN ---
Consult Note: HPI Data of Consult Patient: new to practice Consult date: 06/27/24 Requesting Physician: Tete Snell MD Primary Care Provider: Sharyn Bradford MD Consult Narrative Reason for consult: neck, bilateral arm, stomach pain Narrative: 43yof who presents for evaluation. longstanding history of neck pain, bilateral upper extremity numbness and tingling. has history of chiari malformation, but no recent imaging. also endorses significant diffuse abdominal pain. previously underwent lauren-en-y, still dealing with gastroparesis. sees gi for this. does not take any pain medications besides tylenol. continues in a series of provider directed home exercises >6 weeks, without lasting benefit. cc:: CC: Tete Snell MD Review of Systems ROS Status of ROS 10 or more systems reviewed and unremarkable except as noted in history and below [facility] Medical History Hypertension ?I10 - Essential (primary) hypertension (ICD-10) Schizophrenia ?F20.9 - Schizophrenia, unspecified (ICD-10) DVT (deep venous thrombosis) ?I82.409 - Acute embolism and thrombosis of unspecified deep veins of unspecified lower extremity (ICD-10) Obesity ?E66.9 - Obesity, unspecified (ICD-10) Pacemaker ?Z95.0 - Presence of cardiac pacemaker (ICD-10) Sick sinus syndrome due to SA node dysfunction ?I49.5 - Sick sinus syndrome (ICD-10) Gastroparesis ?K31.84 - Gastroparesis (ICD-10) Surgical History S/P reconstruction of ligament of knee ?Z98.890 - Other specified postprocedural states (ICD-10) History of cholecystectomy ?Z90.49 - Acquired absence of other specified parts of digestive tract (ICD-10) Hx of appendectomy ?Z90.49 - Acquired absence of other specified parts of digestive tract (ICD-10) Social History Within the past year, how often did you have a drink containing alcohol: never Score interpretation: A score less than 3 is consistent with normal alcohol consumption. Smoking status: Never smoker Non-prescribed substance use: denies use Highest level of school completed/degree received: high school graduate Are you now , , , , never or living with a partner: living with partner Little interest or pleasure in doing things: not at all Feeling down, depressed, or hopeless: not at all Feel stressed/tense/nervous/anxious/difficulty sleeping: only a little Life stressor details: new baby at age of 42 Do you think of yourself as: straight/heterosexual Gender Identity: female Meds Home Medications and Allergies Home Medications ?Medication ?Instructions ?Recorded ?Confirmed ?Type aripiprazole 30 mg tablet 30 mg PO DAILY 10/26/23 03/21/24 History benztropine 1 mg tablet 1 mg PO BID 10/26/23 03/21/24 History metoprolol succinate 25 mg 25 mg PO DAILY 10/26/23 03/21/24 History tablet,extended release 24 hr mirtazapine 15 mg tablet 15 mg PO .HS 10/26/23 03/21/24 History olanzapine 5 mg tablet 5 mg PO .qd PRN hallucinations 10/26/23 03/21/24 History paliperidone palmitate 234 mg/1.5 234 mg IM Q30D 10/26/23 03/21/24 History mL intramuscular syringe (Invega Sustenna) venlafaxine 150 mg 150 mg PO DAILY 10/26/23 03/21/24 History capsule,extended release 24 hr clindamycin HCl 300 mg capsule 300 mg PO Q6H 10 days #40 caps 03/21/24 Rx warfarin 5 mg tablet 5 mg PO DAILY 03/21/24 03/21/24 History Allergies Allergy/AdvReac Type Severity Reaction Status Date / Time hydromorphone (From Dilaudid) Allergy Mild itching Verified 03/21/24 10:09 Exam Narrative Exam Narrative: Psych-alert and oriented x 3.? Attentive and appropriate, constitutionally normal, displays normal mood and affect per situation.? There are no obvious deficits in memory, reasoning, or intellect.? Skin-no obvious rashes, bruising, or erythema noted to the patient's area of pain.? Extremities-upper extremities are warm with minimal edema and palpable pulses. Cervical- tenderness to palpation noted in the cervical spine and paraspinal musculature.? Pain is elicited with flexion, extension, and lateral rotation of the cervical spine.? Range of motion is diminished due to pain. Facet loading maneuvers are positive. Strength-unremarkable and within normal limits Sensory-no notable sensory deficits in the bilateral upper extremities to touch or pinprick with the exception to decreased sensation to the bilateral C5, 6, 7 dermatomal distribution.? Coordination remains intact.? Gait remains non-antalgic. Assessment and Plan Assessment and Plan (1) Cervical stenosis of spinal canal: (2) Chronic generalized abdominal pain: (3) Cervical radiculopathy: (4) Chiari malformation type I: Plan 43yof who presents for evaluation. failed conservative measures, as noted. no recently updated advanced imaging. given her chiari malformation, discussed that symptoms may be a consequence of this, but may also have spinal pathology contributing to symptoms. will have her undergo cervical mri without contrast for further info. in terms of generalized abdominal pain, will try celiac plexus block under fluoroscopic guidance with ivcs. will obtain clearance to hold her coumadin. she is in agreement. meds reviewed. will trial gabapentin 300mg tid. follow up after imaging and procedure.
== END 2024-06-27 11:04 | disposition home or self-care (01) ==
PROVIDERS: PCP Family Medicine; Visit Provider Anesthesiology
DX: R10.84 Generalized abdominal pain (principal); G89.29 Other chronic pain; M48.02 Spinal stenosis, cervical region; M54.12 Radiculopathy, cervical region; G93.5 Compression of brain
CPT/HCPCS: G0463

== ENCOUNTER 2024-07-05 07:37 | Outpatient (RCR) | payer MEDICARE, MEDICAID, SELFPAY ==
[2024-06-27] MEDS: CYANOCOBALAMIN 1,000 MCG/ML VIAL 1000 MCG IM (10:56)
[2024-06-27 11:00] VITALS: BP 119/83; PULSE 93; TEMP 36.6; O2SAT 94
[2024-07-05] MEDS: CYANOCOBALAMIN 1,000 MCG/ML VIAL 1000 MCG IM (09:15)
[2024-07-05 09:27] LABS: Basophils Percent Auto 0.7 % (0.2-2.0); Eosinophils Absolute Auto 0.1 10^3/uL (0.0-0.7); Hematocrit 41.2 % (36.0-48.0); Hemoglobin 14.1 g/dL (12.0-16.0); Immature Granulocytes Abs Auto 0.01 10^3/uL (0.00-0.03); Immature Granulocytes Pct Auto 0.2 % (0.0-0.5); Lymphocytes Absolute Auto 1.4 10^3/uL (1.2-3.8); Lymphocytes Percent Auto 30.1 % (20.5-60.0); Mean Corpuscular HGB Conc 34.2 g/dL (29.9-35.2); Mean Corpuscular Hemoglobin 34.8 pg (26.7-34.0); Mean Corpuscular Volume 101.7 fL (81.0-99.0); Mean Platelet Volume 9.6 fL (9.5-13.5); Monocytes Absolute Auto 0.3 10^3/uL (0.3-0.8); Monocytes Percent Auto 7.1 % (1.7-12.0); Neutrophils Absolute Auto 2.7 10^3/uL (1.4-6.5); Neutrophils Percent Auto 59.9 % (43.0-75.0); Platelet Count 163 10^3/uL (150-450); Red Blood Count 4.05 10^6/uL (4.20-5.40); Red Cell Distribution Width 12.4 % (11.0-15.0); White Blood Count 4.5 10^3/uL (4.0-11.0)
[2024-07-05 09:45] LABS: BUN Creatinine Ratio 11.7; Calcium 9.2 mg/dL (8.5-10.1); Carbon Dioxide 28.3 mmol/L (21.0-32.0); Chloride 105 mmol/L (98-107); Estimated GFR (African America >60 (>=60 mL/min/1.73m^2); Estimated GFR (Non-African Ame >60 (>=60 mL/min/1.73m^2); Glucose 96 mg/dL (74-106); Potassium 4.3 mmol/L (3.5-5.1); Sodium 143 mmol/L (136-145)
[2024-07-05 09:49] LABS: Percent Iron Saturation 38.4 %
[2024-07-05 12:12] VITALS: BP 129/93; PULSE 85; TEMP 35.8; O2SAT 99
[2024-07-06 08:10] LABS: Vitamin B12 617 pg/mL (232-1245)
== END 2024-07-06 08:49 | disposition home or self-care (01) ==
LOC: HEMC 07:37
PROVIDERS: PCP Family Medicine; Visit Provider Internal Medicine Hematology & Oncology
DX: R10.84 Generalized abdominal pain (principal); G89.29 Other chronic pain; M48.02 Spinal stenosis, cervical region; M54.12 Radiculopathy, cervical region; G93.5 Compression of brain; I26.99 Other pulmonary embolism without acute cor pulmonale; D68.69 Other thrombophilia; D64.9 Anemia, unspecified; K90.9 Intestinal malabsorption, unspecified; I82.402 Acute embolism and thrombosis of unspecified deep veins of left lower extremity; D50.9 Iron deficiency anemia, unspecified; D51.9 Vitamin B12 deficiency anemia, unspecified; Z98.84 Bariatric surgery status; Z90.49 Acquired absence of other specified parts of digestive tract; Z95.0 Presence of cardiac pacemaker
CPT/HCPCS: 36415; 80048; 82306; 82607; 82728; 83540; 83550; 85025; 96372; G0463; J3420

== ENCOUNTER 2024-07-06 14:02 | Outpatient (RCR) | payer MEDICARE, OTHER, SELFPAY | END 2024-07-07 11:21 | disposition home or self-care (01) | LOC: PT 14:02 | PROVIDERS: PCP Family Medicine; Visit Provider Anesthesiology | DX: M54.12 Radiculopathy, cervical region (principal) | CPT/HCPCS: 97162 ==

== ENCOUNTER 2024-07-11 06:25 | Day surgery (SDC) | payer MEDICARE, MEDICAID, SELFPAY ==
--- OUTSIDE RECORDS SUMMARY | 2024-07-11 06:31 | XMS_ITS | CCD ---
Author Organization [facility] Care Team Providers Care Alterations Tailor Name Role Phone Unavailable Primary Care Provider UnavailROSELINE Johnson Referring Unavailable Viktor Sotelo Unavailable Viktor Sotelo MD Primary Care Provider MD Viktor Sotelo Primary Care Provider MD Cornell Mcnair Emergency Provider MD Eduardo Swain Admit Provider MD Eduardo Swain Attending Provider DO Urbano Palma Other Provider OSVALDO Oconnor Emergency Provider MD Viktor Sotelo Primary Care Provider DO Urbano Palma Attending Provider [phone] DO Michael Cerda Emergency Provider DO Delaney Carlisle Attending Provider MD Viktor Sotelo Primary Care Provider DO Urbano Palma Attending Provider [phone] MD Eduardo Swain Admit Provider MD Eduardo Swain Attending Provider Unavailable Unavailable MD Dustin Cody Admit Provider [phone] MD Dustin Cody Attending Provider [phone] VIKTOR SOTELO Primary Care Physician MD Viktor Sotelo Primary Care Provider [phone] DO Urbano Palma Attending Provider Tulorene, DO Michael Murrieta Emergency Provider MD Eduardo Swain Admit Provider [phone] MD Eduardo Swain Attending Provider MD Dustin Cody Admit Provider MD Dustin Cody Attending Provider [phone] DO Urbano Palma Admit Provider DO Raffaele Ellsworth Emergency Provider MD Toribio Cerda Admit Provider MD Toribio Cerda Attending Provider [phone] MD Viktor Sotelo Primary Care Provider DO Urbano Palma Attending Provider Tulorene, DO Rodriguez M Emergency Provider DUANE Cortez Emergency Provider DO Keven Florentino Emergency Provider CANDICE .KRISTA Admitting Unavailable KRISTA ANTONIO Consulting Unavailable KRISTA ANTONIO Attending Unavailable DR VIKTOR SOTELO Primary Care Unavailable DR VIKTOR SOTELO Primary Care Unavailable ALYSSA ZHANG Admitting Unavailable ALYSSA ZHANG Consulting Unavailable ALYSSA ZHANG Attending Unavailable MD Viktor Soetlo Primary Care Provider [phone] BRANDIE Dejesus Other Provider Unavailable BRANDIE Palmer Other Provider Unavailable BRANDIE Garrett Other Provider Unavailable BRANDIE Arana Other Provider Unavailable BRANDIE Orta Other Provider Unavailable Mario RN Yisel Other Provider Unavailable MD Magda Hurley Other Provider MD Eh Jennings Other Provider DUANE Paiz Other Provider DO Mahda Mandel Other Provider MD Luciano Pedro Other Provider DO Gerry Noble Other Provider MD Mike Smart Other Provider MD Marylu Kemp Other Provider Donny, ANP-BC Afshan Other Provider MD Faby Watts Other Provider MD Mitesh Hoffman Other Provider MD Sintia Gan Other Provider MD Siobhan Zuniga Other Provider DO Dennis Espinoza Other Provider MD Dawson Branham Other Provider MD Yossi Peterson Other Provider Glynn, CRITICAL CARE CNS-C Gretta Helms Other Provider MD Yonny Bazan Other Provider MD Trace Morataya Other Provider MD Dimitris Joe Other Provider DO Verona Waterman Other Provider DO All Bloom Other Provider DO Joe Holland Other Provider DUANE Roman Other Provider DO Rosendo Holland Other Provider [phone] MD Harriet Andrade Other Provider DUANE Mcnair Other Provider DUANE Montana Other Provider Shahida, BRANDIE Hurtado Other Provider Unavailable MD Viktor Sotelo Primary Care Provider MD Toribio Cerda Admit Provider [phone] MD Toribio Cerda Attending Provider DO Ke Cage Emergency Provider MD Eduardo Swain Admit Provider MD Eduardo Swain Attending Provider MD Michael Viveros Attending Provider [phone] Sanchez, Dr. Viktor Pack Primary Care Unav ailable Ne, Dr. Rita Ahumada Attending Unavailab le Sanchez, Dr. Viktor Pack Primary Care Unav ailable Ne, Dr. Rita Ahumada Attending Unavailab le Sotelo, Dr. Viktor Pack Primary Care Unav ailable Ne, Dr. Rita Ahumada Attending Unavailab le Ne, Dr. Rita Ahumada Referring Unavailab le Ne, Dr. Rita Ahumada Attending Unavailab le Sotelo, Dr. Viktor Pack Primary Care Unav ailable Sotelo, Dr. Viktor Pack Primary Care Unav ailable Ne, Dr. Rita Ahumada Attending Unavailab huma Sotelo, MD Viktor Leone Primary Care Provider MD Eh Jennings Other Provider Unavailable NE, MD RITA AHUMADA Attending Unavailabl e NE, MD RITA AHUMADA Referring Unavailabl e Sanchez, Dr. Viktor Pack Primary Care Unav asher Sotelo, Dr. Viktor Pack Primary Care Unav ailrudy Sotelo, Dr. Viktor Pack Primary Care Unav ailable NE, MD RITA AHUMADA Attending Unavailabl e NE, MD RITA AHUMADA Referring Unavailabl e Sotelo, Dr. Viktor Pack Primary Care Unav Viktor Rivera MD Primary Care Provider Unavailable Viktor Sotelo MD Primary Care Provider [phone] Viktor Sotelo MD Primary Care Provider VIKTOR SOTELO Primary Care Unavailable JESSE SIMS Attending Unavailable LEMUEL RENTERIA Admitting Unavailable MARKER, SUJATA Referring Unavailable TONYA JACOBS Consulting Unavailable GILBERTO LOCKHART Consulting Unavailable RAYMOND ORTIZ Consulting Unavailable MD Viktor Sotelo Primary Care Provider [phone] MD Nimesh Cerda Attending Provider Viktor Sotelo MD Primary Care Provider [phone] NE, RITA J Referring Unavailable SOTELO, VIKTOR Leone Primary Care Unavailable NE, RITA Helms Referring Unavailable VIKTOR SOTELO Primary Care Unavailable NE, RITA J Referring Unavailable SOTELO, VIKTOR Leone Primary Care Unavailable NE, RITA Helms Referring Unavailable VIKTOR SOTELO Primary Care Unavailable Viktor Sotelo MD Primary Care Provider [phone] Estela Chung PA-C Attending Provider Nimesh Cerda MD Attending Provider Michael Viveros MD Attending Provider [phone] Michael VIVEROS Referring Unavailable ESTELA CHUNG Attending Unavailable SHELDON, ESTELA Leone Attending Unavailable ESTELA CHUNG Attending Unavailable Michael VIVEROS Admitting Unavailable Michael VIVEROS Attending Unavailable Michael VIVEROS Referring Unavailable SHELDON, ESTELA Leone Attending Unavailable Tete Snell MD Attending Unavailable Sotelo, Viktor E Primary Care Unavailable Estela Chung Admitting Unavailable Sheldon, Estela Leone Attending Unavailable Michael Viveros Admitting Unavailable Michael Viveros Attending Unavailable Viktor Sotelo Primary Care Unavailable Viktor Sotelo E Primary Care Unavailable Nimesh Cerda Admitting Unavailab le Nimesh Cerda Attending Unavailab le Allergies Allergy Classification Reported Allergen(s) Allergy Type Date of Onset Reaction(s) Facility (20 sources) HYDROmorphone; 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: [Dilaudid] Drug Allergy 9 Itching (finding), Unknown (qualifier value), Itching, Unknown [facility] (2 sources) HYDROmorphone Drug Allergy 9 Itching [facility] (19 sources) HYDROmorphone; 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: [HYDROMORPHONE] Drug Allergy 9 Itching [facility] (1 source) HYDROmorphone Drug Allergy [facility] (1 source) Fluarix [id number] (PF) Drug allergy (disorder) 2 [facility] Repository Medications Current Medications Medication Drug Class(es) Dates Sig (Normalized) Sig (Original) ARIPiprazole 30 mg oral tablet (20 sources) Atypical Antipsychotic Start: 09-03-2022 aripiprazole 30 mg oral tablet Refills(s) 0 Start Date: 09/03/22 Status: Ordered Start: 08-02-2022 End: 09-03-2022 Aripiprazole (Abilify) 20 mg tablet Discontinued 30 MG PO Daily August 02, 2022 6:37am September 03, 2022 10:31pm Start: 07-17-2022 End: 08-02-2022 take 1 tablet by mouth once daily Aripiprazole 20 mg Tablet Discontinued 20 MG PO Daily July 17, 2022 12:00am August 02, 2022 6:37am Start: 12-11-2021 End: 07-17-2022 take 1 tablet by mouth once daily Aripiprazole 15 mg Tablet Discontinued 15 MG PO Daily December 10, 2021 11:00pm July 17, 2022 12:16pm Start: 11-05-2021 End: 12-11-2021 take 1 tablet by mouth once daily Aripiprazole 2 mg Tablet Discontinued 2 MG PO Daily November 04, 2021 11:00pm December 11, 2021 10:22am Start: 10-13-2021 End: 12-11-2021 take 1 tablet by mouth once daily Aripiprazole 10 mg Tablet Discontinued 10 MG PO Daily October 12, 2021 11:00pm December 11, 2021 10:22am Start: 09-04-2021 End: 10-13-2021 take 1 tablet by mouth once daily Aripiprazole 20 mg Tablet Discontinued 20 MG PO Daily September 03, 2021 11:00pm October 13, 2021 9:16am Start: 08-31-2021 End: 09-04-2021 take 3 tablets by mouth once daily Aripiprazole (Abilify) 5 mg tablet Discontinued 15 MG PO Daily August 31, 2021 5:36pm September 04, 2021 12:08pm Start: 07-15-2021 End: 08-31-2021 take 1 tablet by mouth once daily Aripiprazole 5 mg Tablet Discontinued 5 MG PO Daily July 15, 2021 12:00am August 31, 2021 5:36pm benztropine mesylate 0.5 mg oral tablet (5 sources) Anticholinergic, Antihistamine Start: 12-15-2022 take 1 tablet by mouth twice daily Benztropine 0.5 mg Tablet Active 0.5 MG PO Twice daily December 14, 2022 11:00pm ciprofloxacin 500 mg oral tablet (20 sources) Quinolone Antimicrobial Start: 06-02-2024 Cipro 500 mg Tab See Instructions, 1 tab po night prior to cysto. 1 tab po following cysto., # 2 tab(s), Refills(s) 0, Pharmacy: [facility]/pharmacy #[id number], 167, cm, 04/28/23 10:12:00 EST, Height/Length Dosing, 111, kg, 04/28/23 10:12:00 EST, Weight Dosing Start Date: 06/02/24 Status: Ordered Start: 03-03-2019 End: 03-05-2019 take [id number] mg by mouth every twelve hours Ciprofloxacin Hcl 500 mg tablet Discontinued 500 MG PO Twice daily March 02, 2019 11:00pm March 05, 2019 3:30pm 1 Tablet by mouth every 12 hours STOP DATE 03/04 24 hr metoprolol succinate 25 mg extended release oral tablet (6 sources) beta-Adrenergic Priti Start: 01-20-2023 take 1 tablet by mouth once daily metoprolol succinate XL (Toprol-XL) 25 mg 24 hr tablet Take 1 tablet (25 mg) by mouth once daily. 01/20/2023 Active mirtazapine 15 mg oral tablet (20 sources) Start: 12-15-2022 take 1 tablet by mouth once daily at bedtime Mirtazapine 15 mg Tablet Active 15 MG PO Daily at bedtime December 14, 2022 11:00pm Start: 12-09-2021 End: 12-11-2022 take 1 tablet by mouth at bedtime Mirtazapine (Remeron) 15 mg tablet Discontinued 15 MG PO Bedtime December 08, 2021 11:00pm December 11, 2022 8:36pm ondansetron 4 mg disintegrating oral tablet (20 sources) Serotonin-3 Receptor Antagonist Start: 06-10-2024 take 1 tablet by mouth every eight hours Ondansetron 4 mg tablet,disintegrating Active 4 MG PO Q8H June 10, 2024 12:00am Start: 10-18-2022 End: 11-12-2023 take 1 tablet by mouth three times daily as needed for nausea Ondansetron 4 mg tablet,disintegrating Discontinued 4 MG PO Three times daily as needed for Nausea October 28, 2022 7:50pm November 12, 2023 12:30pm Start: 08-25-2019 End: 02-18-2020 take 1 tablet by mouth every six hours as needed for nausea Ondansetron 4 mg Tablet,Disintegrating Discontinued 4 MG PO Q6H as needed for Nausea August 25, 2019 12:00am February 18, 2020 4:45pm Start: 05-26-2019 End: 08-12-2022 take 1 tablet by mouth every four hours as needed for nausea and vomiting Ondansetron 4 mg Tablet,Disintegrating Discontinued 4 MG PO Every 4 hours as needed for Nausea And Vomiting December 10, 2021 11:00pm August 12, 2022 12:21pm Start: 11-15-2013 Zofran Oral, S ee Instructions, Refills(s) 0, Nausea/Vomiting Start Date: 11/15/13 Status: Ordered Comment on above: Take 1 tablet by tejas th every 4 hours as needed for Nausea/Vomiting. 1.5 ml paliperidone palmitate 156 mg/ml prefilled syringe (20 sources) Atypical Antipsychotic Start: 04-06-2023 Invega Sustenna 234 mg/1.5 mL syringe Inject 1.5 mL (234 mg) into the muscle. 04/06/2023 Active Start: 12-11-2022 Paliperidone P almitate (Invega Sustenna) 234 mg/1.5 mL syringe Active 234 MG IM Q28D December 10, 2022 11:00pm Start: 09-07-2022 End: 12-15-2022 take 1 tablet by mouth twice daily Paliperidone 3 mg T ablet Extended Release 24 Hr Discontinued 3 MG PO Twice daily September 06, 2022 11:00pm December 15, 2022 10:02am Start: 09-07-2022 End: 12-11-2022 Paliperidone Palmitate (Inve ga Sustenna) 156 mg/mL Syringe Discontinued 156 MG IM Q28D 07 21September 06, 2022 11:00pm December 11, 2022 8:27pm Start: 09-03-2022 End: 09-07-2022 take 1 tablet by mouth once daily in the morning Paliperidone (Invega) 3 mg Tablet Extended Release 24 Hr Discontinued 3 MG PO Every morning September 02, 2022 11:00pm September 07, 2022 11:05am Start: 10-13-2021 End: 11-01-2021 take 1 tablet by mouth once daily at bedtime Paliperidone 6 mg Tablet Extended Release 24 Hr Discontinued 6 MG PO Daily at bedtime 14 October 12, 2021 11:00pm November 01, 2021 9:23am Start: 10-13-2021 End: 01-20-2022 inject 156 mg by intramuscular injection once Paliperidone Palmitate (Invega Sustenna) 156 mg/mL Syringe Discontinued 156 MG IM Once 1 October 12, 2021 11:00pm January 20, 2022 2:48pm traZODone hydrochloride 50 mg oral tablet (20 sources) Serotonin Reuptake Inhibitor Start: 09-03-2022 traZODONE 50 mg Tab Refills(s) 0 Start Date: 09/03/22 Status: Ordered Start: 07-02-2022 Trazodone 50 m g tablet Active 75 MG PO Daily at bedtime as needed for Insomnia July 02, 2022 9:24am Start: 07-02-2022 take 75 mg by mouth once daily at bedtime Trazodone Active 75 MG PO Daily at bedtime July 02, 2022 10:24am Start: 07-15-2021 End: 07-02-2022 take 1 tablet by mouth once daily at bedtime as needed Trazodone 50 mg Tablet Discontinued 50 MG PO Daily at bedtime as needed for Insomnia October 12, 2021 11:00pm July 02, 2022 9:24am warfarin sodium 5 mg oral tablet (1 source) Vitamin K Antagonist Start: 06-10-2024 take 1 tablet by mouth once daily Warfarin 5 mg tablet Active 5 MG PO Daily June 10, 2024 12:00am Completed/Discontinued Medications Medication Drug Class(es) Dates Sig (Normalized) Sig (Original) acetaminophen 500 mg oral tablet (11 sources) Start: 08-13-2022 End: 09-03-2022 take 2 tablets by mouth every six hours Acetaminophen 500 mg Tablet Discontinued 1000 MG PO Q6H August 13, 2022 12:00am September 03, 2022 6:38pm Start: 08-13-2022 End: 09-03-2022 take 1000 mg by mouth every six hours Acetaminophen Discontinued 1000 MG PO Q6H August 13, 2022 1:00am September 03, 2022 7:38pm take 500 mg by mouth every eight hours as needed acetaminophen (TYLENOL) 500 mg/15 mL liqd Take 500 mg by mouth every 8 hours as needed. 0 Active Comment on above: Take 500 mg by mouth every 8 hours as needed. acetaminophen 325 mg / HYDROcodone bitartrate 5 mg oral tablet (20 sources) Opioid Agonist Start: End: 1 take 1 tablet by mouth every six hours as needed for pain Hydrocodone-Acetamino phen 5-325 mg tablet Discontinued 1 TAB PO Q6H as needed for pain 8 2 December 13, 2020 June 14, 2021 10:35am Start: 02-18-2020 End: 06-14-2021 take 1 tablet by mouth twice daily as needed for pain Hydrocodone-Acetaminophen 5-325 mg Table t Discontinued 1 TAB PO Twice daily as needed for Pain February 17, 2020 11:00pm June 14, 2021 10:35am acetaZOLAMIDE 250 mg oral tablet (20 sources) Carbonic Anhydrase Inhibitor Start: 08-21-2020 End: 12-09-2021 take 1 tablet by mouth twice daily Acetazolamide 250 mg Tablet Discontinued 250 MG PO Twice daily July 09, 2021 12:00am December 08, 2021 11:58pm Start: 02-21-2020 End: 03-30-2020 take 1 tablet by mouth twice daily Acetazolamide 250 mg Tablet Discontinued 250 MG PO Twice daily 60 February 20, 2020 11:00pm March 30, 2020 9:34pm Comment on above: Take 250 mg by mouth twice daily. apixaban 5 mg oral tablet (3 sources) Factor Xa Inhibitor Start: 4 End: 4 take 1 tablet by mouth twice daily Apixaban (Eliquis) 5 mg tablet Discontinued 5 MG PO Twice daily 60 November 12, 2023 12:50pm June 10, 2024 9:39am benzocaine 200 mg/ml / menthol 5 mg/ml topical spray (9 sources) Standardized Chemical Allergen Start: 3 End: Benzocaine-Menthol (Dermoplast (With Menthol)) 20-0.5 % Aerosol Discontinued 1 SPRAY TOPICAL PRN as needed for Discomfort August 13, 2022 12:00am September 03, 2022 6:38pm Blood Pressure Kit Med And Lrg (10 sources) Start: 3 End: Blood Pressure Kit Med And Lrg Discontinued 0 .Route 1 August 02, 2022 1:00am August 13, 2022 1:07pm As directed Start: 08-02-2022 Blood Pressure Kit Med And Lrg Active 0 .Route 1 August 02, 2022 12:00am As directed Blood Pressure Kit Med And Lrg kit (1 source) Start: 08-02-2022 End: 08-13-2022 Blood Pressure Kit Med And Lrg kit Discontinued 0 .Route 1 August 02, 2022 12:00am August 13, 2022 12:07pm As directed busPIRone hydrochloride 5 mg oral tablet (18 sources) Start: 02-21-2020 End: 03-30-2020 take 1 tablet by mouth three times daily Buspirone 5 mg Tablet Discontinued 5 MG PO Three times daily 270 90 February 20, 2020 11:00pm March 30, 2020 9:31pm cephalexin 500 mg oral capsule (20 sources) Cephalosporin Antibacterial Start: 12-02-2022 take 1 capsule by mouth once daily Keflex 500 mg Cap 500 mg = 1 cap(s), Oral, Daily, Take 1 capsule the day before the procedure and 1 capsule after the procedure, # 2 cap(s), Refills(s) 0, Pharmacy: [facility]/pharmacy #[id number], 167, cm, 09/03/22 13:32:00 EDT, Height/Length Dosing, 111, kg, 09/03/22 13:32:00 EDT... Start Date: 12/02/22 Status: Ordered Start: 10-18-2022 End: 10-28-2022 take 1 capsule by mouth every six hours Cephalexin 500 mg capsule Discontinued 500 MG PO Q6H 40 October 17, 2022 11:00pm October 28, 2022 7:35pm Start: 08-02-2022 End: 08-13-2022 take 1 capsule by mouth every six hours Cephalexin 500 mg capsule Discontinued 500 MG PO Q6H 28 August 02, 2022 12:00am August 13, 2022 12:07pm Start: 08-01-2019 End: 08-25-2019 take 1 capsule by mouth three times daily Cephalexin (Keflex) 500 mg Capsule Discontinued 500 MG PO Three times daily August 01, 2019 12:00am August 25, 2019 9:16am cholecalciferol 0.025 mg oral tablet (20 sources) Vitamin D Start: 11-01-2022 End: 11-12-2023 take 1 tablet by mouth once daily Cholecalciferol (Vitamin D3) 25 mcg (1,000 unit) Tablet Discontinued 50 MCG PO Daily 60 October 31, 2022 11:00pm November 12, 2023 12:29pm Start: 09-04-2021 End: 10-06-2021 take 1 tablet by mouth once daily Cholecalciferol (Vitamin D3) 25 mcg (1,000 unit) Tablet Discontinued 50 MCG PO Daily 60 September 03, 2021 11:00pm October 06, 2021 1:18pm Start: 02-18-2020 End: 06-14-2021 take 1 capsule by mouth once daily Cholecalciferol (Vitamin D3) 1,000 unit capsule Discontinued 1000 UNIT PO Daily February 18, 2020 4:45pm June 14, 2021 10:35am take with some food, or when tube feeding is running. Start: 03-05-2019 End: 02-18-2020 take 1 capsule by mouth twice daily Cholecalciferol (Vitamin D3) 1,000 unit capsule Discontinued 1000 UNIT PO Twice daily 60 March 04, 2019 11:00pm February 18, 2020 4:45pm take with some food, or when tube feeding is running. take 1 tablet by tejas th twice daily cholecalciferol (VITAMIN D3) 1,000 unit tab tablet Take 1,000 Units by mouth twice daily. 0 Active Comment on above: Take 1,000 Units by mouth twice daily. cyclobenzaprine hydrochloride 10 mg oral tablet (9 sources) Muscle Relaxant Start: 08-12-19 End: 09-04-19 take 1 mg by mouth at bedtime as needed for muscle spasms Cyclobenzaprine 10 mg Tablet Discontinued MG PO Bedtime as needed for Muscle Spasm August 12, 2022 12:00am September 03, 2022 6:38pm Start: 08-12-2022 End: 09-03-2022 take 1 mg by mouth at bedtime Cyclobenzaprine Disconti nued MG PO Bedtime August 12, 2022 1:00am September 03, 2022 7:38pm Dexlansoprazole (Dexilant) 60 mg capsule,biphase delayed releas (2 sources) Start: 11-11-2023 End: 11-12-2023 take 1 capsule by mouth once daily Dexlansoprazole (Dexilant) 60 mg capsule,biphase delayed releas Discontinued 60 MG PO Daily November 10, 2023 11:00pm November 12, 2023 12:29pm Start: 11-11-2023 End: 11-12-2023 take 1 capsule by mouth once daily Dexlansoprazole (Dexilant) 60 mg capsule,biphase delayed releas Discontinued 60 MG PO Daily November 11, 2023 12:00am November 12, 2023 1:29pm docusate sodium 100 mg oral capsule (9 sources) Start: 08-13-2022 End: 09-03-2022 take 1 capsule by mouth at bedtime Docusate Sodium 100 mg Capsule Discontinued 100 MG PO Bedtime August 13, 2022 12:00am September 03, 2022 6:38pm doxepin hydrochloride 10 mg oral capsule (20 sources) Tricyclic Antidepressant Start: 08-31-2021 End: 10-06-2021 take 1 capsule by mouth once daily Doxepin 10 mg Capsule Discontinued 10 MG PO Daily August 31, 2021 12:00am October 06, 2021 1:23pm Start: 09-10-2020 End: 07-09-2021 take 1 capsule by mouth once daily at bedtime Doxepin 10 mg capsule Discontinued 10 MG PO Daily at bedtime June 14, 2021 12:00am July 09, 2021 5:36pm 1 ml erenumab-aooe 70 mg/ml auto-injector (20 sources) Start: 12-19-2020 End: 06-25-2022 inject 70 mg by subcutaneous injection every 30 days Erenumab-Aooe (Aimovig Autoinjector) 70 mg/mL Auto-Injector Discontinued 70 MG SUBCUT Q30D August 31, 2021 12:00am June 25, 2022 9:16pm last taken 10/09/21 Start: 12-19-2020 inject 1 mL by subcu taneous injection once erenumab (Aimovig Autoinjector) 70 mg/mL injection Inject 1 mL (70 mg) under the skin every 28 (twenty-eight) days. 12/19/2020 Active ferrous sulfate 325 mg oral tablet (17 sources) Start: 06-25-2022 End: 09-03-2022 take 1 tablet by mouth once daily Ferrous Sulfate (Iron) 325 mg (65 mg iron) Tablet Discontinued 325 MG PO Daily June 25, 2022 12:00am September 03, 2022 6:39pm 1.5 ml fremanezumab-vfr m 150 mg/ml auto-injector (2 sources) inject 225 mg by subcutaneous injection every month fremanezumab-vfrm (AJOVY AUTOINJECTOR) 225 mg/1.5 mL auto-injector Inject 225 mg subcutaneously once every month. Do not shake. 0 Active Comment on above: Inject 225 mg subcutaneously once every month. Do not shake. gabapentin 50 mg/ml oral solution (1 source) Anti-epileptic Agent Start: 11-12-2020 take 6 mL by mouth every eight hours gabapentin (NEURONTIN) 250 mg/5 mL (5 mL) oral solution Take 6 mL by mouth every 8 hours for 90 days. 540 mL 2 11/12/2020 Active Comment on above: Take 6 mL by mouth every 8 hours for 90 days. 1 ml galcanezumab-gnl m 120 mg/ml auto-injector (18 sources) Start: 08-25-2019 End: 06-14-2021 inject 120 mg by subcutaneous injection every 30 days Galcanezumab-Gnlm (Emgality Pen) 120 mg/mL Pen Injector Discontinued 120 MG SUBCUT Q30D August 25, 2019 12:00am June 14, 2021 2:53pm hydrOXYzine pamoate 50 mg oral capsule (20 sources) Antihistamine Start: 09-04-2021 End: 12-11-2021 take 1 capsule by mouth at bedtime as needed for anxiety Hydroxyzine Pamoate 50 mg capsule Discontinued 50 MG PO Bedtime as needed for Anxiety October 06, 2021 1:23pm December 11, 2021 10:22am lamoTRIgine 25 mg oral tablet (18 sources) Mood Stabilizer, Anti-epileptic Agent Start: 02-21-2020 End: 06-14-2021 take 1 tablet by mouth twice daily Lamotrigine 25 mg Tablet Discontinued 25 MG PO Twice daily 60 30 February 20, 2020 11:00pm June 14, 2021 10:36am linaclotide 0.072 mg oral capsule (20 sources) Guanylate Cyclase-C Agonist Start: 11-11-2023 End: 11-12-2023 take 1 capsule by mouth once daily Linaclotide 72 mcg capsule Discontinued MCG PO November 10, 2023 11:00pm November 12, 2023 12:30pm FreeTextSi capsule po one time daily; Note: Source Status: Refill; Refills: 3; Provider: Courtney Brewer Start: 10-19-2020 End: 10-19-2021 take 1 capsule by mouth once daily Linaclotide (Linzess) 145 mcg Capsule Discontinued 145 MCG PO Daily August 31, 2021 12:00am October 06, 2021 1:24pm Start: 03-03-2019 End: 02-18-2020 take 1 capsule by mouth once daily in the morning Linaclotide (Linzess) 145 mcg capsule Discontinued 145 MCG PO Daily March 02, 2019 11:00pm February 18, 2020 4:44pm Takes in morning. Comment on above: Take 1 capsule by [facility] once daily. LORazepam 1 mg oral tablet (20 sources) Benzodiazepine Start: End: 2 take 1 tablet by mouth twice daily as needed for anxiety Lorazepam (Ativan) 1 mg tablet Discontinued 1 MG PO Twice daily as needed for Anxiety June 14, 2021 12:00am August 31, 2021 5:34pm Start: 09-24-2020 LORazepam 0.5 MG Oral Tablet Quantity: 60 Refills: 0 Ordered: 24-Sep-2020 DO Start : 24-Sep-2020 Active take 1 mg by mouth o nce daily at bedtime LORazepam (ATIVAN) 0.5 mg Take 1 mg by mouth daily at bedtime. 0 Active Comment on above: Take 1 mg by mouth d aily at bedtime. metoclopramide 10 mg oral tablet (7 sources) Dopamine-2 Receptor Antagonist Start: 11-02-19 End: 12-12-19 take 1 tablet by mouth once before mealtime Metoclopramide Hcl 10 mg Tablet Discontinued 10 MG PO 3x/Day before meals 45 15 October 31, 2022 11:00pm December 11, 2022 8:36pm Modified Lanolin (Lanolin (Hpa)) 100 % Cream (9 sources) Start: 08-13-19 End: 09-04-19 Modified Lanolin (Lanolin (Hpa)) 100 % Cream Discontinued 1 APPLIC TOPICAL PRN as needed for Discomfort August 13, 2022 12:00am September 03, 2022 6:39pm Start: 08-13-2022 End: 09-03-2022 Modified Lanolin (Lanolin (H pa)) 100 % Cream Discontinued 1 APPLIC TOPICAL PRN August 13, 2022 1:00am September 03, 2022 7:39pm naproxen 500 mg oral tablet (8 sources) Nonsteroidal Anti-inflammatory Drug Start: 10-18-2022 End: 10-28-2022 take 1 tablet by mouth twice daily as needed for pain Naproxen (Naprosyn) 500 mg tablet Discontinued 500 MG PO Twice daily as needed for pain October 17, 2022 11:00pm October 28, 2022 5:00pm nitrofurantoin, macrocrystals 25 mg / nitrofurantoin, monohydrate 75 mg oral capsule (20 sources) Nitrofuran Antibacterial Start: 09-28-2022 End: 10-28-2022 take 1 capsule by mouth every twelve hours at mealtime Nitrofurantoin Monohyd/M-Cryst (Macrobid) 100 mg capsule Discontinued 100 MG PO Q12H September 27, 2022 11:00pm October 28, 2022 7:00pm Administer with a meal/food: swallow whole; do not open, crush, dissolve, or chew Start: 12-11-2021 End: 01-20-2022 take 1 capsule by mouth twice daily Nitrofurantoin Monohyd/M-Cryst 100 mg Capsule Discontinued 100 MG PO Twice daily 8 4 December 10, 2021 11:00pm January 20, 2022 2:48pm pantoprazole 40 mg delayed release oral tablet (20 sources) Proton Pump Inhibitor Start: 12-17-2020 End: 12-11-2021 take 1 tablet by mouth once daily Pantoprazole (Protonix) 40 mg tablet,delayed release (DR/EC) Discontinued 40 MG PO Daily June 14, 2021 12:00am December 11, 2021 10:22am Start: 08-01-2019 End: 02-18-2020 take 1 tablet by mouth twice daily Pantoprazole (Protonix) 40 mg Tablet,Delayed Release (Dr/Ec) Discontinued 40 MG PO Twice daily August 01, 2019 12:00am February 18, 2020 4:44pm Vit No.[id number] ( Vitamin) 27 mg iron- 800 mcg Tablet (18 sources) Start: 12-11-2021 End: 09-03-2022 take 1 tablet by mouth once daily Vit No.130-Zjfb-Juugj ( Vitamin) 27 mg iron- 800 mcg Tablet Discontinued 1 TAB PO Daily December 10, 2021 11:00pm September 03, 2022 6:39pm Start: 12-11-2021 End: 09-03-2022 take 1 tablet by mouth once daily Vit No.575-Wktu-Wcsuh ( Vitamin) 27 mg iron- 800 mcg Tablet Discontinued 1 TAB PO Daily December 11, 2021 12:00am September 03, 2022 7:39pm Start: 12-11-2021 take 1 tablet by tejas th once daily Vit No.033-Tovr-Yvgwz ( Vitamin) 27 mg iron- 800 mcg Tablet Active 1 TAB PO Daily December 10, 2021 11:00pm Start: 12-11-2021 take 1 tablet by tejas th once daily Vit No.086-Dvgc-Cbhmd ( Vitamin) 27 mg iron- 800 mcg Tablet Active 1 TAB PO Daily December 11, 2021 12:00am Vitamin TABS (8 sources) Vitamin TABS TAKE 1 TABLET DAILY DIRECTED. Quantity: 0 Refills: 0 Ordered: 14-Jan-2022 DO Active promethazine hydrochloride 25 mg oral tablet (20 sources) Phenothiazine Start: 11-11-2023 End: 11-12-2023 Promethazine 25 mg tablet Discontinued 25 MG PO November 10, 2023 11:00pm November 12, 2023 12:31pm FreeTextSig: Oral; Note: Source Status: Not-TakingundefinedPRN; Qty: 60 Unspecified; Provider: Courteny Tabor ( ) Start: 11-01-2022 End: 11-12-2023 Promethazine 12.5 mg supposi tory Discontinued 12.5 MG WV Q6H as needed for Nausea And Vomiting December 10, 2022 11:00pm November 12, 2023 12:31pm Start: 01-20-2022 End: 08-12-2022 take 1 tablet by mouth four times daily as needed for nausea and vomiting Promethazine 25 mg tablet Discontinued 25 MG PO Four times daily as needed for nausea and vomiting January 19, 2022 11:00pm August 12, 2022 12:21pm Start: 03-03-2019 End: 06-14-2021 take 1 tablet by mouth every eight hours as needed for nausea Promethazine 25 mg tablet Discontinued 25 MG PO Three times daily as needed for Nausea March 02, 2019 11:00pm June 14, 2021 10:36am 1 Tablet by mouth every 8 hours as needed. Start: 09-02-2018 promethazine ( PHENERGAN) 25 mg suppository Indications: Gastroparesis 1 Suppository by RECTAL route every 6 hours as needed. 180 Suppository 6 09/02/2018 Active Start: 11-15-2013 inject 50 mg by intr amuscular injection every six hours as needed for nausea Phenergan 50 mg/mL injectable solution 50 mg = 1 mL, IntraMuscular, q6hr, PRN for nausea/vomiting, # 10 mL, Refills(s) 0 Start Date: 11/15/13 Status: Ordered Comment on above: 1 Suppository by REC ASHUTOSH route every 6 hours as needed. pyridostigmine bromide 60 mg oral tablet (2 sources) Start: 11-11-19 End: 11-12-19 take 1 tablet by mouth twice daily Pyridostigmine [place] 60 mg tablet Discontinued 1 TAB PO Twice daily November 10, 2023 11:00pm November 12, 2023 12:31pm FreeTextSi tablet Orally bid; Note: Source Status: Taking; Refills: 4; Qty: 180 Tablet; Provider: Courtney Tabor ( ) rimegepant 75 mg disintegrating oral tablet (18 sources) Start: 03-30-20 End: 06-14-20 take 1 tablet by mouth once daily as needed for headache Rimegepant (Nurtec Odt) 75 mg Tablet,Disintegrating Discontinued 75 MG PO Daily as needed for Headache March 29, 2020 11:00pm June 14, 2021 10:36am sertraline 100 mg oral tablet (18 sources) Serotonin Reuptake Inhibitor Start: 03-03-20 End: 06-14-20 take 2 tablets by mouth at bedtime Sertraline (Zoloft) 100 mg tablet Discontinued 200 MG PO Bedtime March 02, 2019 11:00pm June 14, 2021 10:36am Sucralfate (1 source) Aluminum Complex Start: 11-11-19 End: 11-12-19 take 10 mL by mouth four times daily Sucralfate Discontinued PO November 11, 2023 12:00am November 12, 2023 1:31pm FreeTextSi ml Orally qid; Note: Source Status: Taking; Refills: 3; Qty: 1200 ml; Provider: Courtney Brewer Sucralfate 100 mg/mL suspension (1 source) Start: 11-11-19 End: 11-12-19 take 10 mL by mouth four times daily Sucralfate 100 mg/mL suspension Discontinued PO November 10, 2023 11:00pm November 12, 2023 12:31pm FreeTextSi ml Orally qid; Note: Source Status: Taking; Refills: 3; Qty: 1200 ml; Provider: Courtney Brewer terconazole 80 mg vaginal insert (17 sources) Azole Antifungal Start: 06-26-19 End: 07-15-19 Terconazole 80 mg Suppository Discontinued 1 SUPP VAGINAL Daily at bedtime 7 June 26, 2022 12:00am July 15, 2022 11:20am tiZANidine 4 mg oral tablet (20 sources) Central alpha-2 Adrenergic Agonist Start: 10-29-19 End: 12-12-19 Tizanidine (Zanaflex) 4 mg Tablet Discontinued 5 MG PO Daily at bedtime October 27, 2022 11:00pm December 11, 2022 8:37pm Per Pt. Report she takes 5 mg at HS Start: 10-08-2020 tiZANidine HCl - 4 MG Oral Tablet Quantity: 180 Refills: 0 Ordered: 08-Oct-2020 DO Start : 08-Oct-2020 Active Start: 02-18-2020 End: 09-28-2022 take 1 tablet by mouth at bedtime Tizanidine (Zanaflex) 4 mg Tablet Discontinued 4 MG PO Bedtime September 02, 2022 11:00pm September 28, 2022 6:25pm Start: 08-01-2019 End: 08-29-2019 take 1 tablet by mouth once daily at bedtime Tizanidine 2 mg Tablet Discontinued 2 MG PO Daily at bedtime August 01, 2019 12:00am August 29, 2019 10:16am take 1 tablet by tejas th once daily at bedtime tiZANidine (ZANAFLEX) 4 mg tablet Take 4 mg by mouth daily at bedtime. 0 Active Comment on above: Take 4 mg by mouth d aily at bedtime. topiramate 100 mg oral tablet (18 sources) Start: 08-01-19 End: 02-18-20 take 1 tablet by mouth once daily at bedtime Topiramate (Topamax) 100 mg Tablet Discontinued 100 MG PO Daily at bedtime August 01, 2019 12:00am February 18, 2020 4:44pm ubrogepant 100 mg oral tablet (2 sources) ubrogepant (UBRE LVY) 100 mg tablet Take 100 mg by mouth as needed. 0 Active Comment on above: Take 100 mg by mouth as needed. 24 hr venlafaxine 150 mg extended release oral capsule (20 sources) Serotonin and Norepinephrine Reuptake Inhibitor Start: 07-15-19 22 End: 07-02-19 23 take 1 capsule by mouth once daily in the morning Venlafaxine (Effexor Xr) 150 mg capsule,extended release 24hr Discontinued 150 MG PO Every morning August 31, 2021 5:36pm July 02, 2022 9:23am Start: 07-09-2021 End: 07-15-2021 take 1 capsule by mouth once daily in the morning Venlafaxine 37.5 mg capsule,extended release 24hr Discontinued 37.5 MG PO Every morning July 09, 2021 12:00am July 15, 2021 9:32am Start: 06-18-2021 End: 07-15-2021 take 1 capsule by mouth once daily in the morning Venlafaxine 75 mg capsule,extended release 24hr Discontinued 75 MG PO Every morning July 09, 2021 5:38pm July 15, 2021 9:32am vitamin b12 1 mg oral tablet (20 sources) Vitamin B12 Start: 11-01-2022 End: 11-12-2023 take 1 tablet by mouth once daily in the morning Cyanocobalamin (Vitamin B-12) 1,000 mcg Tablet Discontinued 1000 MCG PO Every morning October 31, 2022 11:00pm November 12, 2023 12:29pm Start: 02-21-2020 End: 06-14-2021 take 1 tablet by mouth once daily in the morning Cyanocobalamin (Vitamin B-12) 1,000 mcg Tablet Discontinued 1000 MCG PO Every morning February 20, 2020 11:00pm June 14, 2021 10:35am witch marv 500 mg/ml medicated pad (9 sources) Start: 08-13-2022 End: 09-03-2022 Glycerin-Witch Marv (A.E.R. Witch Marv) 12.5-50 % Pads, Medicated Discontinued 1 PAD TOPICAL PRN as needed for Discomfort August 13, 2022 12:00am September 03, 2022 6:39pm Problems Active Problems Problem Classification Problem Date Documented Da te Episodic/Chronic Abdominal pain (19 sources) Abdominal pain; 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: [Unspecified abdominal pain] Onset: 0 10-26-2019 Episodic Administrative/social admission (20 sources) Follow-up status; 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: [Other specified counseling] 03-07-2019 Episodic Anxiety disorders (20 sources) Mixed anxiety and depressive disorder; 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: [Other specified anxiety disorders] Onset: 3 06-14-2021 Chronic Cardiac dysrhythmias (20 sources) Sinus node dysfunction; 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: [Sinoatrial node dysfunction] Onset: 2 Chronic Cardiac dysrhythmias (20 sources) Sinus bradycardia; 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: [Other specified cardiac dysrhythmias] Onset: 3 12-13-2020 Episodic Complications of surgical procedures or medical care (2 sources) Finding of gastrointestinal device; 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: [Enterostomy malfunction] Onset: 0 09-28-2020 Chronic Conduction disorders (20 sources) Complete atrioventricular block; 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: [Atrioventricular block, complete] Onset: 3 07-14-2021 Chronic Deficiency and other anemia (20 sources) Anemia; 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: [Anemia, unspecified] Onset: 4 06-17-2021 Episodic Deficiency and other anemia (1 source) Anemia, unspecified; 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: [Anemia, unspecified] 12-11-2021 Episodic Delirium, dementia, and amnestic and other cognitive disorders (18 sources) Delirium; 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: [Delirium due to known physiological condition] 02-18-2020 Chronic Epilepsy; convulsions (12 sources) Seizure; 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: [Unspecified convulsions] Onset: 3 07-17-2020 Episodic Esophageal disorders (20 sources) Eosinophilic esophagitis; 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: [Eosinophilic esophagitis] Onset: 4 05-17-2019 Chronic Fluid and electrolyte disorders (20 sources) Dehydration; 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: [Dehydration] Onset: 9 12-24-2018 Episodic Genitourinary symptoms and ill-defined conditions (20 sources) Joseph hematuria; 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: [Nocturia] Onset: 3 07-17-2020 Episodic Headache; including migraine (20 sources) Headache; 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: [Headache] Onset: 9 04-19-2019 Episodic Immunizations and screening for infectious disease (18 sources) Exposure to Human immunodeficiency virus; 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: [Contact with and (suspected) exposure to human immunodeficiency virus [HIV]] 07-18-2021 Episodic Menstrual disorders (2 sources) Menorrhagia; 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: [Excessive and frequent menstruation with regular cycle] Onset: 4 Chronic Mood disorders (20 sources) Major depression with psychotic features; 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: [Major depressive disorder, single episode, severe with psychotic features] Onset: 2 07-10-2021 Chronic Nausea and vomiting (20 sources) Intractable nausea and vomiting; 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: [Nausea with vomiting, unspecified] Onset: 9 11-23-2018 Episodic Nervous system congenital anomalies (1 source) Chiari malformation 12-13-2020 Chronic Nonspecific chest pain (18 sources) Chest pain; 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: [Chest pain, unspecified] 12-13-2020 Episodic Nutritional deficiencies (20 sources) Deficiency of macronutrients; 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: [Mild protein-calorie malnutrition] Onset: 9 05-26-2020 Chronic Nutritional deficiencies (18 sources) Cobalamin deficiency; 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: [Deficiency of other specified B group vitamins] 02-21-2020 Episodic Other aftercare (11 sources) Patient encounter status; 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: [Encounter for therapeutic drug level monitoring] Onset: 4 Episodic Other aftercare (1 source) Other assisted (current) drug therapy; 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: [OTH LOOP SEWER CURRENT DRUG THERAPY] Onset: 3 Episodic Other aftercare (1 source) Long-term current use of anticoagulant; 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: [alf (current) use of anticoagulants] Onset: 4 Episodic Other complications of (1 source) Advanced maternal age 12-10-2021 Episodic Other diseases of bladder and urethra (6 sources) Urethral stricture 09-15-2022 Episodic Other diseases of bladder and urethra (2 sources) Male urethral stricture; 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: [Unspecified urethral stricture, male, unspecified site] Onset: 3 Episodic Other diseases of kidney and ureters (18 sources) Renal mass; 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: [Other specified disorders of kidney and ureter] Onset: 3 07-17-2020 Chronic Other diseases of kidney and ureters (2 sources) Disorder of kidney and/or ureter; 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: [Other specified disorders of kidney and ureter] Onset: 3 Chronic Other diseases of kidney and ureters (1 source) Other specified disorders of kidney and ureter; 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: [Other specified disorders of kidney and ureter] Onset: 4 Chronic Other disorders of stomach and duodenum (20 sources) Gastroparesis syndrome; 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: [Gastroparesis] Onset: 8 12-31-2019 Episodic Comment on above: s/p gastrectomy Other disorders of stomach and duodenum (7 sources) Gastroparesis; 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: [Gastroparesis] Onset: 3 11-01-2022 Episodic Other female genital disorders (2 sources) Vaginal bleeding; 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: [Abnormal uterine and vaginal bleeding, unspecified] Onset: 4 06-17-2021 Chronic Other gastrointestinal disorders (1 source) History of intubation of gastrointestinal tract via jejunostomy 07-14-2021 Chronic Other infections; including parasitic (7 sources) Infection by Trichomonas 07-17-2020 Episodic Other injuries and conditions due to external causes (7 sources) Injury of head 07-17-2020 Episodic Other lower respiratory disease (9 sources) Dyspnea; 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: [Shortness of breath] Episodic Other nervous system disorders (18 sources) Benign intracranial hypertension; 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: [Benign intracranial hypertension] Onset: 3 06-08-2023 Chronic Other nervous system disorders (20 sources) Chiari malformation type I; 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: [Compression of brain] Onset: 9 05-18-2019 Chronic Other nervous system disorders (4 sources) Compression of brain; 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: [Compression of brain] 08-02-2022 Chronic Other nervous system disorders (18 sources) Disturbance in speech; 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: [Other speech disturbances] 02-18-2020 Episodic Other nutritional; endocrine; and metabolic disorders (10 sources) Body mass index 40+ - severely obese; 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: [Morbid (severe) obesity due to excess calories] Onset: 9 03-29-2019 Chronic Other nutritional; endocrine; and metabolic disorders (2 sources) Obese class II; 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: [Obesity, unspecified] Onset: 9 05-17-2019 Chronic Other nutritional; endocrine; and metabolic disorders (10 sources) Obesity; 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: [Obesity, unspecified] Chronic Other nutritional; endocrine; and metabolic disorders (20 sources) Body mass index 30+ - obesity; 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: [Body mass index (BMI) 35.0-35.9, adult] 12-10-2021 Chronic Other nutritional; endocrine; and metabolic disorders (1 source) Body mass index (BMI) 35.0-35.9, adult; 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: [Body Mass Index 35.0-35.9, adult] 12-11-2021 Chronic Other and delivery including normal (20 sources) ; 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: [ state, incidental] 12-10-2021 Episodic Ovarian cyst (18 sources) Cyst of ovary; 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: [Unspecified ovarian cyst, unspecified side] 08-31-2021 Episodic Pulmonary heart disease (2 sources) Other pulmonary embolism without acute cor pulmonale; 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: [Pulmonary embolism] Onset: 4 11-13-2023 Episodic Residual codes; unclassified (20 sources) Altered mental status; 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: [Altered mental status, unspecified] Onset: 9 03-11-2019 Episodic Residual codes; unclassified (9 sources) Non-smoker; 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: [Other specified conditions influencing health status] Episodic Residual codes; unclassified (18 sources) H/O: hypertension; 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: [Personal history of other complications of , childbirth and the puerperium] 12-10-2021 Episodic Residual codes; unclassified (18 sources) Hallucinations; 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: [Hallucinations, unspecified] 03-03-2019 Episodic Residual codes; unclassified (10 sources) Personal history of other complications of , childbirth and the puerperium; 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: [Personal history of other genital system and obstetric disorders] 12-11-2021 Episodic Residual codes; unclassified (5 sources) Hallucinations, unspecified; 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: [Hallucinations] 07-17-2022 Episodic Residual codes; unclassified (17 sources) Auditory hallucinations; 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: [Auditory hallucinations] 09-03-2022 Episodic Residual codes; unclassified (9 sources) Auditory hallucinations; 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: [Hallucinations] 09-07-2022 Episodic Schizophrenia and other psychotic disorders (20 sources) Psychotic disorder; 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: [Unspecified psychosis not due to a substance or known physiological condition] 10-05-2021 Chronic Spondylosis; intervertebral disc disorders; other back problems (20 sources) Neck pain; 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: [Cervicalgia] 12-13-2020 Episodic Suicide and intentional self-inflicted injury (20 sources) Suicidal thoughts; 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: [Suicidal ideations] 08-31-2021 Episodic Syncope (20 sources) Syncope; 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: [Syncope and collapse] Onset: 3 08-25-2019 Episodic Unclassified (18 sources) Advanced maternal age ; 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: [Advanced maternal age affecting , antepartum] 12-10-2021 Unclassified (17 sources) Chiari malformation; 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: [Chiari malformation] 12-13-2020 Unclassified (2 sources) Drug therapy finding 06-02-2024 Urinary tract infections (14 sources) Chronic cystitis; 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: [Other chronic cystitis without hematuria] Onset: 3 10-19-2021 Chronic Urinary tract infections (20 sources) Urinary tract infectious disease; 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: [Urinary tract infection, site not specified] Onset: 3 12-09-2021 Episodic Past or Other Problems Problem Classification Problem Date Documented Da te Episodic/Chronic Blindness and vision defects (2 sources) Abnormal vision; 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: [Unspecified visual disturbance] Onset: 4 06-17-2021 Episodic Esophageal disorders (2 sources) Esophagitis; 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: [Esophagitis] Onset: 4 11-24-2013 Episodic Other connective tissue disease (2 sources) Swelling of left upper limb; 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: [Other specified soft tissue disorders] Onset: 4 06-17-2021 Episodic Other disorders of stomach and duodenum (2 sources) Pyloric stenosis; 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: [Adult hypertrophic pyloric stenosis] Onset: 9 12-07-2018 Episodic Other gastrointestinal disorders (2 sources) Constipation; 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: [Constipation, unspecified] Onset: 4 06-17-2021 Episodic Other gastrointestinal disorders (2 sources) Gastric anastomotic stricture; 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: [Disease of digestive system, unspecified] Onset: 9 11-02-2018 Episodic Other lower respiratory disease (1 source) Shortness of breath; 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: [Shortness of breath] Onset: 2 Episodic Phlebitis; thrombophlebitis and thromboembolism (11 sources) Acute deep venous thrombosis of left axillary vein; 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: [Acute embolism and thrombosis of left axillary vein] Onset: 4 06-08-2023 Episodic Residual codes; unclassified (2 sources) Edema of the upper extremity ; 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: [Localized edema] Onset: 4 Episodic Residual codes; unclassified (2 sources) History of partial gastrectomy; 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: [Acquired absence of stomach [part of]] Onset: 9 03-29-2019 Episodic Unclassified (17 sources) History of intubation of gastrointestinal tract via jejunostomy; 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: [History of jejunostomy tube placement] 07-14-2021 Results Test Name Value Interpretation Reference Range Facility Main OR Intraoperative Recor don 07-05-2024 Main OR Intraoperative Record Main OR Intraoperative Record IntraOp Document Type [facility]O Summary Primary Physician: Michael VIVEROS MD Finalized Date/Time: 07/05/24 13:38:20 Pt. Name: MARICARMEN ANDERSON Glenny DonovanB./Sex: 1980 Female Med Rec #: [id number] Physician: Michael VIVEROS MD Financial #: [id number] Pt. Type: O Room/Bed: / Admit/Disch: 07/05/24 12:41:15 - Institution: Case Times FTURO Entry 1 Patient Times In Room 07/05/24 13:26:00 Out Room 07/05/24 13:38:00 Procedure Times Start 07/05/24 13:32:00 Stop 07/05/24 13:35:00 Anesthesia Times Last Modified By: Jolie Caldwell 07/05/24 13:38:10 Case Attendance FTURO Entry 1 Entry 2 Entry 3 Case Attendee Michael VIVEROS MD, Kelsie E McClain MANAGER OF FINANCIAL PLANNINGSheyla Role Performed Surgeon - Primary Flight/Transport Nurse - Primary Scrub - Primary Time In 07/05/24 13:26:00 07/05/24 13:26:00 07/05/24 13:26:00 Time Out 07/05/24 13:38:00 07/05/24 13:38:00 07/05/24 13:38:00 Procedure CYSTOSCOPY LOCAL(.) CYSTOSCOPY LOCAL(.) CYSTOSCOPY LOCAL(.) Comments Last Modified By: Jolie Caldwell Kelsie E Burgderfer, Kelsie E 07/05/24 13:38:11 07/05/24 13:38:11 07/05/24 13:38:11 Surgical Procedures FTURO Entry 1 Procedure Description Procedure CYSTOSCOPY LOCAL Modifiers . Surgeon Description CYSTO WITH URETHERAL DILATION Primary Procedure Yes Primary Surgeon Michael VIVEROS MD Start 07/05/24 13:32:00 Stop 07/05/24 13:35:00 Anesthesia Type Local Surgical Service Urology Wound Class 2 - Clean-Contaminated Last Modified By: Jolie Caldwell 07/05/24 13:38:06 General Case Data [facility]O Pre-Care Text: Classifies surgical wound, implements aseptic technique, initiates traffic control Entry 1 Case Information OR URO 1 FT Case Level None Wound Class 2 - Clean-Contaminated Specialty Urology Preop Diagnosis INCOMPLETE EMPTYING, Postop Same As Preop Yes URETHERAL STRICTURE, RENAL MASS Postop Diagnosis INCOMPLETE EMPTYING, Outcomes Met? Yes URETHERAL STRICTURE, RENAL MASS Last Modified By: Jolie Caldwell 07/05/24 13:20:27 Post-Care Text: The patient is free from signs and symptoms of infection EU IntraOp - [facility]O Pre-Care Text: Implements protective measures prior to operative or invasive procedure, confirms identity before the operative or invasive procedure, verifies operative procedure, surgical site, and laterality Entry 1 EU Perioperative Protocols Procedure(s) CYSTOSCOPY LOCAL(.) Patient Identity Birthday, ID Band Verified (select at Check, Patient least 2): Participation Consents / H and P H&P, Surgery/Procedure Operative Site N/A Verified Consent Marking Verified Surgical Site Yes Laterality Verified n/a Verified Procedure Verified Yes Correct Patient Yes Position Verified Availability Equipment, Medication Time Out FELICE PATINO, Michael Johnson, Verified (If Participants Jolie Caldwell, Applicable) Sheyla Gold CST Time Out Complete 07/05/24 13:31:00 Allergies Reviewed? Yes Allergies Reviewed Self/Patient With Body Position Frog Legged Prep Area VAGINA Prep Agents Betadine Solution Skin. Condition Intact, [place], Warm, & Description N/A Dry Additional None Specimens Comment N/A Specimens Collected Vitals - EU Blood Pressure 112/72 Pulse 67 bpm Respirations 18 br/min SPO2 98 % EBL 0 I&O - EU Total Intake 0 mL Total Output 0 mL Outcomes Met? Yes Last Modified By: Jolie Caldwell 07/05/24 13:31:44 Post-Care Text: The patient is free from signs and symptoms of injury caused by extraneous objects Sign Out [facility]URO Entry 1 Before Patient Leaves OR Nurse verbally Yes Nurse verbally n/a confirms with the confirms with the team the name of team that the procedure(s) instrument, sponge, recorded and needle counts are correct (or N/A) Nurse verbally n/a Nurse verbally Yes confirms with the confirms with the team how the team whether there specimen is labeled are any equipment (including patient problems to be name), if applicable addressed Sign Out Complete 07/05/24 13:35:00 Last Modified By: Jolie Caldwell 07/05/24 13:35:59 Case Comments Finalized By: Jolie [place]dwell Document Signatures Signed By: Jolie Caldwell 07/05/24 13:38 Jolie Caldwell 07/05/24 13:38 Jolie Caldwell 07/05/24 13:38 Normal [facility] Main OR Preoperative Recordo n 07-05-2024 Main OR Preoperative Record Main OR Preoperative Record Holding Area Document Type FTURO Summary Primary Physician: Michael VIVEROS MD Finalized Date/Time: 07/05/24 13:21:29 Pt. Name: MARICARMEN ANDERSON Glenny Luu./Sex: 1980 Female Med Rec #: [id number] Physician: Michael VIVEROS MD Financial #: [id number] Pt. Type: O Room/Bed: / Admit/Disch: 07/05/24 12:41:15 - Institution: Case Times Holding FTURO Pre-Care Text: Verifies consent for planned procedure, identifies individual values and wishes concerning care, includes family members in perioperative teaching Secures patient's records' belongings, and valuables, maintains patient's dignity and privacy, and maintains patient confidentiality Entry 1 In Holding 07/05/24 13:08:00 Outcomes Met? Yes Last Modified By: Gabriella Gottlieb LPN 07/05/24 13:08:20 Post-Care Text: The patient participates in decisions affecting his or her perioperative plan of care The patient's right to privacy is maintained Surgery Checklist FTURO Entry 1 Patient Birthday, ID Band Procedure History and Physical, Identification: Check, Patient Verification: Surgical Consent, With Participation Patient NPO after Midnight: n/a Limitations: up ad kenroy Complaints of Pain: No Skin Integrity Intact, [place], Warm, & Dry Vitals - EU Blood Pressure 112/72 Pulse 67 bpm Respirations 18 br/min SPO2 98 % Additional None RN Reviewed Yes Specimens Collected Last Modified By: Jolie Caldwell 07/05/24 13:20:55 Finalized By: Jolie Caldwell Document Signatures Signed By: Jolie Caldwell 07/05/24 13:21 Jolie Caldwell 07/05/24 13:21 Jolie Caldwell 07/05/24 13:21 Jolie Caldwell E 07/05/24 13:20 Bull MARREROGloriaGabriella D 07/05/24 13:09 Jolie Caldwell E 07/05/24 13:21 Normal [facility] Operative Reporton Operative Report Operative Report Patient: MARICARMEN ANDERSON Age: 43 years Sex: Female : 1980 Associated Diagnoses: None Author: Michael VIVEROS MD Procedure Operative Information Details: Date/ Time: 07/05/2024 13:38:00. Pre-Op Dx: Incomplete Bladder Emptying - R39.14. Post-Op Dx: Same. Anesthesia Type: Local. Procedure: Local Cystoscopy with Urethral Dilation. Complications: None. Risks/Benefits/Informed Consent: Surgical risks, benefits, details of the procedure have been explained to the patient, Full informed consent has been obtained. Intraoperative Information Prepped: Patient is brought back to the endoscopy suite, Patient is placed in modified dorso/lithotomy position, Patient prepped in the usual fashion with Betadine solution, 2% Xylocaine Jelly is placed per Urethra, After waiting several minutes the Cystoscope is introduced. The Urethra is: Normal. The Bladder is: Normal, No SIOMARA, A. V. Or prolapse.. The ureteral orifices: Show efflux of clear urine. Devices Implanted: None. Removal: Cystoscope is removed, The patient tolerated it well. Postoperative Information Discharge: Patient is discharged home with antibiotic coverage, Follow up arranged. Urethra was dilated from 22-30 [place] with Pavel sounds. Normal [facility] Comment on above: Result Comment: Elec tronically Signed By: Michael VIVEROS MD\.br\Date and Time Signed: 07/05/24 13:[address] abdomen pelvis w jose CT abdomen pelvis w [facility] Main [place] [id number] CT Scan Report Signed Patient: Maricarmen Anderson MR#: [id number] : 1980 Acct:[id number] Age/Sex: 43 / F ADM Date: 07/04/24 Loc: CT Room: Type: [facility] Attending Dr: Michael Viveros MD Copies to: Michael Viveros MD Ordering Provider: Michael Viveros MD Date of Service: 07/04/24 CT/CT abdomen pelvis w con: N28.89 CT ABDOMEN AND PELVIS WITH INTRAVENOUS CONTRAST: CLINICAL HISTORY: Kidney lesion. COMPARISON: Renal ultrasound 05/30/2024. MRI abdomen 01-21-23 TECHNIQUE: Spiral images were obtained through the abdomen and pelvis following the administration of intravenous contrast. This CT exam was performed using one or more following dose reduction techniques: Automated exposure control, adjustment of the mA and/or kV according to patient size, or use of iterative reconstruction technique. FINDINGS: Lung Bases: [No acute findings.] Organs:Gallbladder has been removed. Hepatic steatosis. Portal vein pancreas spleen and adrenal glands appear unremarkable. No enhancing renal mass or hydronephrosis. The previously identified cystic lesion involving the left kidney is occult on today's study. Aorta appears normal in caliber.[ GI: Small hiatal hernia with postsurgical changes involving the stomach. Small bowel appears nondilated. No acute colonic abnormality.[ Pelvis:[Urinary bladder and uterus appear grossly unremarkable. No adnexal mass.] Peritoneum/Retroperitoneu m:No free air or free fluid or lymphadenopathy.[ Abd wall/Bones:Abdominal wall demonstrates no acute findings. Osseous structures demonstrate degenerative change.[ CT/CT abdomen pelvis w con IMPRESSION: No acute findings. The previously identified septated cystic lesion involving the left kidney appears to have resolved. Impression dictated by: Mitchel Oro Jr., D.O.07/04/2024 2:58 PM Dictation Location: [place] [address] Transcribed By: [facility] 07/04/24 1458 Dictated By: Mitchel Oro Jr, DO 07/04/24 1455 Signed By: 07/04/24 1458 Normal [facility] Basophils Auto (Bld) [#/Vol] on 06-02-2024 Basophils (Bld) [#/Vol] Automated basophil count 0.0-0.1 [facility] Basophils/100 WBC Auto (Bld) on 06-02-2024 Basophils/100 WBC (Bld) Automated basophil % 0.2-2.0 [facility] Cholesterol in LDL Calc [Mas s/Vol]on 06-02-2024 Cholesterol in LDL [Mass/Vol] Cholesterol in LDL [Mass/volume] in Serum or Plasma by calculation [facility] Comment on above: <100 mg/dl [id number] 0-129 mg/dl NEAR OR ABOVE [id number] mg/dl BORDERLINE [id number] mg/dl HIGH>190 mg/dl VERY HIGH Cholesterol in VLDL Calc [Ma ss/Vol]on 06-02-2024 Cholesterol in VLDL [Mass/Vol] Cholesterol in VLDL [Mass/volume] in Serum or Plasma by calculation [facility] Eosinophils/100 WBC Auto (Bl d)on 06-02-2024 Eosinophils/100 WBC (Bld) Automated eosinophil % 0.9-7.0 [facility] Erythrocyte distribution wid th Auto (RBC) [Ratio]on 06-02-2024 Erythrocyte distribution width (RBC) [Ratio] Erythrocyte distribution width [Ratio] by Automated count 11.0-15.0 [facility] Estimated glomerular filtrat ion rate (GFR) non- Americanon 06-02-2024 GFR/1.73 sq M.predicted among non-blacks MDRD (S/P/Bld) [Vol rate/Area] Estimated glomerular filtration rate (GFR) non- Low >=60 mL/min/1.73 m 2 [facility] Glucose mean value [Mass/vol ume] in Blood Estimated from glycated hemoglobinon 06-02-2024 Average glucose Estimated from glycated hemoglobin (Bld) [Mass/Vol] Glucose mean value [Mass/volume] in Blood Estimated from glycated hemoglobin [facility] Hematocrit Auto (Bld) [Volum e fraction]on 06-02-2024 Hematocrit (Bld) [Volume fraction] Hematocrit [Volume Fraction] of Blood by Automated count 36.0-48.0 [facility] Hemoglobin [Mass/volume] in Bloodon 06-02-2024 Hemoglobin (Bld) [Mass/Vol] Hemoglobin [Mass/volume] in Blood 12.0-16.0 [facility] Iron binding capacity [Mass/ volume] in Serum or Plasmaon 06-02-2024 Iron binding capacity [Mass/Vol] Iron binding capacity [Mass/volume] in Serum or Plasma 250.0-450.0 [facility] Iron saturation [Mass Fracti on] in Serum or Plasmaon 06-02-2024 Iron saturation [Mass fraction] Iron saturation [Mass Fraction] in Serum or Plasma [facility] Laboratory - Chemistry and C hemistry - challengeon 06-02-2024 Calcium [Mass/Vol] 9.1 mg/dL 8.5-10.1 [facility] Chloride [Moles/Vol] 105 mmol/L 98-107 [facility] Cholesterol [Mass/Vol] 186 mg/dL <=200 [facility] Cholesterol in HDL [Mass/Vol] 72 mg/dL High 40-60 [facility] Comment on above: > or =60 mg/dl - LOW CARDIOVASCULAR RISK<40 mg/dl - HIGH CARDIOVASCULAR RISK CO2 [Moles/Vol] 29.9 mmol/L 21.0-32.0 [facility] Cobalamin (Vitamin B12) [Mass/Vol] 241 pg/mL 232-1245 [facility] Comment on above: Performed at: [address] [id number] Director: Prabhakar Warren PhD, Phone: [phone] Creatinine [Mass/Vol] 1.16 mg/dL High 0.55-1.02 [facility] Ferritin [Mass/Vol] 78.0 ng/mL 8.0-252.0 [facility] GFR/1.73 sq M.predicted MDRD (S/P/Bld) [Vol rate/Area] mL/min/{1.73_m2} >=60 mL/min/1.73 m 2 [facility] Glucose [Mass/Vol] 101 mg/dL 74-106 [facility] Iron [Mass/Vol] 112.0 ug/dL 50.0-170.0 [facility] Potassium [Moles/Vol] 3.9 mmol/L 3.5-5.1 [facility] Sodium [Moles/Vol] 141 mmol/L 136-145 [facility] Triglyceride [Mass/Vol] 86 mg/dL <=150 [facility] Urea nitrogen [Mass/Vol] 7.0 mg/dL 7.0-18.0 [facility] Urea nitrogen/Creatinine [Mass ratio] 6.0 mg/mg [facility] Laboratory - Hematology and Cell countson 06-02-2024 HbA1c (Bld) [Mass fraction] 5.7 % 4.5-6.2 [facility] Comment on above: ADA RECOMMENDED LIMI T 4.0 - 6.0ADA THERAPEUTIC TARGET < 7.0ACTION SUGGESTED> 7.0 Immature granulocytes/100 WBC (Bld) 0.2 % 0.0-0.5 [facility] Leukocytes [#/volume] correc nneka for nucleated erythrocytes in Blood by Automated counon 06-02-2024 WBC corrected for nucl RBC Auto (Bld) [#/Vol] Leukocytes [#/volume] corrected for nucleated erythrocytes in Blood by Automated coun 4.0-11.0 [facility] Lymphocytes Auto (Bld) [#/Vo l]on 06-02-2024 Lymphocytes (Bld) [#/Vol] Lymphocytes [#/volume] in Blood by Automated count 1.2-3.8 [facility] Lymphocytes/100 WBC Auto (Bl d)on 06-02-2024 Lymphocytes/100 WBC (Bld) Lymphocytes/100 leukocytes in Blood by Automated count 20.5-60.0 [facility] MCH Auto (RBC) [Entitic mass ]on 06-02-2024 MCH (RBC) [Entitic mass] MCH [Entitic mass] by Automated count 26.7-34.0 [facility] MCHC Auto (RBC) [Mass/Vol]on 06-02-2024 MCHC (RBC) [Mass/Vol] MCHC [Mass/volume] by Automated count 29.9-35.2 [facility] MCV Auto (RBC) [Entitic vol] on 06-02-2024 MCV (RBC) [Entitic vol] MCV [Entitic volume] by Automated count 81.0-99.0 [facility] Monocytes Auto (Bld) [#/Vol] on 06-02-2024 Monocytes (Bld) [#/Vol] Automated blood monocyte count 0.3-0.8 [facility] Monocytes/100 WBC Auto (Bld) on 06-02-2024 Monocytes/100 WBC (Bld) Automated monocyte % 1.7-12.0 [facility] Neutrophils Auto (Bld) [#/Vo l]on 06-02-2024 Neutrophils (Bld) [#/Vol] Neutrophils [#/volume] in Blood by Automated count 1.4-6.5 [facility] Neutrophils/100 WBC Auto (Bl d)on 06-02-2024 Neutrophils/100 WBC (Bld) Automated neutrophil % 43.0-75.0 [facility] No Panel Informationon 06-02 25-Hydroxy Vitamin D Total 26.9 ng/mL [facility] Comment on above: <20 ng/mL Vit D defi cient20-<30 ng/mL Vit D [id number] ng/mL Vit D sufficient>100 ng/mL Potential Toxicity Eosinophils # (Auto) 0.2 10 3/uL 0.0-0.7 [facility] Immature Granulocyte # (Auto) 0.01 10 3/uL 0.00-0.03 [facility] Platelet mean volume Auto (B ld) [Entitic vol]on 06-02-2024 Platelet mean volume (Bld) [Entitic vol] Platelet mean volume [Entitic volume] in Blood by Automated count Low 9.5-13.5 [facility] Platelets Auto (Bld) [#/Vol] on 06-02-2024 Platelets (Bld) [#/Vol] Platelets [#/volume] in Blood by Automated count 150-450 [facility] RBC Auto (Bld) [#/Vol]on RBC (Bld) [#/Vol] Erythrocytes [#/volu me] in Blood by Automated count 4.20-5.40 [facility] Serum or plasma anion gap de terminationon 06-02-2024 Anion gap [Moles/Vol] Serum or plasma an ion gap determination [facility] Serum or plasma total choles terol/high density lipoprotein (HDL) cholesterol mass edu 06-02-2024 Cholesterol.total/Chol esterol in HDL [Mass ratio] Serum or plasma total cholesterol/high density lipoprotein (HDL) cholesterol mass rat [facility] Comment on above: 3.3 - 4.4 LOW RISK4. 4 - 7.1 AVERAGE RISK7.1 - 11.0 MODERATE RISK>11.0 HIGH RISK Urology Office/Clinic Noteon 06-02-2024 Urology Office/Clinic Note Urology Office/Clinic Note HPI Staff 43yr old female pt here for 1yr f/u with [facility]. S/p cysto/UD 02/19/21 & 12/09/22 Previous Dx: incomplete bladder emptying, urethral stricture, chronic cystitits w/o hematuria, renal mass. pt states she has not been feeling well since Thursday, she is not keeping anything doen. Dysuria: _no Incomplete bladder emptying: _no Hematuria: _no Frequency: _q2-3 hrs Urgency: _yes Nocturia: _3x Stream: _normal Leaking: _no Post void dripping: _no Wearing pads/ Depends: _no Urge incontinence: _no Stress incontinence: _at times Incontinence without Sensory Awareness: _no Abdominal pain: _left side discomfort Flank pain: _no Sexual complaints: _ History of Present Illness staff HPI reviewed and agree. Tests Reviewed: Reviewed UA. Review of Systems no fever, chills, malaise, myalgia. no rash/lesions. no chest pain, palpitations, or SOB. no abdominal pain, nausea, vomiting. no unilateral calf swelling, redness, pain Physical Exam General: nontoxic, NAD Mouth: moist mucosa Lungs: normal respiratory effort Cardio: regular rate, good distal perfusion Abdomen: nondistended, no suprapubic distention or tenderness, no CVA tenderness Neurologic: Grossly normal Skin: No rashes or suspicious lesions Assessment/Plan Former DLS pt. Now seeing PRW. 1. Incomplete bladder emptying (R33.9: Retention of urine, unspecified) PVR (cc): 04/09/21 - 58 09/03/22 - 254 04/27/23 - 161 TODAY - 286ml. See #2. Ordered: [id number] Measure Post Void residual urine and/or bladder capacity by US- non-imaging Urnls Dip Stick Auto w/o Microscopy POC 68203 2. Urethral stricture (N35.919: Unspecified urethral stricture, male, unspecified site) cysto/UD 02/19/21 & 12/09/22 UA today shows small leuks. Pt denies UTI sx. No UTIs in the past year. However her PVR has worsened again. Discussed repeat UD. Pt willing. Will schedule Cysto with UD. The procedure risks, benefits, details, and treatment alternatives have been discussed with the patient. These include bleeding, infection, recurrent scar in over 50%, need for repeat dilation or other procedures, no symptom relief with dilation, among others. Full informed consent has been obtained. Will order Local anesthesia. Ordered: [id number] Measure Post Void residual urine and/or bladder capacity by US- non-imaging Urnls Dip Stick Auto w/o Microscopy POC 10785 3. 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 Abd MRI 01/21/23 [facility] - mildly septated T2 hyperintense lesion involving superior pole of L kidney measuring up to 9mm (does not appear to enhance on postcontrast imaging). An additional subcentimeter T2 hyperintense lesion involving inferior pole of L kidney measuring up to about 4mm (too small for accurate characterization). R kidney unremarkable. CRESCENCIO 05/30/24 [facility] - cystic changes with questionable kidney stones. Advised pt this read is not highly specific/helpful. Will have PRW review and advise if we need CT/MRI for better look at the complex cyst. Ordered: [id number] Measure Post Void residual urine and/or bladder capacity by US- non-imaging Urnls Dip Stick Auto w/o Microscopy POC 04401 4. 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 [address] Additional Instructions: Follow up schedule Dilation Patient Education Acute Urinary Retention, Female I, Shyann Yoo, personally scribed for LORENE Torres on 06/02/2024 15:54:03. . Documentation recorded by the mari Yoo accurately reflects the services(s) I performed and decisions made by me. Authenticated by Estela Chung PA-C on 06/02/2024 16:46:43. Problem List/Past Medical History Ongoing Anxiety BMI 37.0-37.9, adult Chronic cystitis without hematuria Flank pain Gastroparesis Gross hematuria Head injury Incomplete bladder emptying Kidney mass Nocturia Recurrent UTI Recurrent UTI Renal mass Seizures Trichomoniasis Urethral stricture Urinary urgency Historical No qualifying data Procedure/Surgical History Cystourethroscopy with dilation of urethral stricture (12/09/2022), Cystourethroscopy with dilation of urethral stricture (02/19/2021), Appendectomy, Cholecystectomy, Pacemaker care. Medications aripiprazole 30 mg oral tablet Phenergan 50 mg/mL injectable solution, 50 mg= 1 mL, IntraMuscular, q6hr, PRN traZODONE 50 mg Tab Zanaflex, 4 mg, Oral Zofran, Oral Allergies Dilaudid (Itching, Unknown) HYDROmorphone (Itching, Unknown, Itching) Social History Alcohol Never., 06/02/2024 Substance Abuse Never., 06/02/2024 Tobac (more content not included)... Normal [facility] Comment on above: Result Comment: Elec tronically Signed By: ESTELA CHUNG PA-C\.br\Date and Time Signed: 06/02/24 16:50 EST\.br\Electronically Co-Signed By: Shyann Yoo\.br\Date and Time Co-Signed: 06/02/24 15:54 EST US renal BIon 05-30-2024 US renal BI [facility] [place] [address] Ultrasound Report Signed Patient: Maricarmen Anderson MR#: [id number] : 1980 Acct:[id number] Age/Sex: 43 / F ADM Date: 05/30/24 Loc: Room: Type: [facility] Attending Dr: Estela Chung PA-C Ordering Provider: Estela Chung PA-C Date of Service: 05/30/24 US/US renal BI: N28.89 Copies to: Estela Chung PA-C BILATERAL RENAL AND BLADDER ULTRASOUND CLINICAL HISTORY: Follow-up CT. COMPARISON: CT abdomen and pelvis 10/18/2022 FINDINGS: Estimation of renal size is approximately 10.15 cm on the right and 9.82 cm on the left. Cystic changes involving the left kidney with what appears to be stones noted, largest measuring 9 mm. No hydronephrosis of either kidney. The urinary bladder is partially distended with a volume of 291.56 ml. No shadowing stone or focal lesion. No significant postvoid residual. US/US renal BI IMPRESSION: SMALL CYSTS INVOLVING THE LEFT KIDNEY WITH QUESTIONABLE LEFT NEPHROLITHIASIS. NO HYDRONEPHROSIS TO SUGGEST OBSTRUCTION. Impression dictated by: Mitchel Oro Jr., D.O.05/30/2024 6:31 PM Dictation Location: [id number] Tech: Greta Reyes Transcribed By: [facility] 05/30/241830 Dictated By: Mitchel Oro Jr, DO 05/30/241828 Signed By: 05/30/241830 Normal [facility] APTTon 10-31-2023 aPTT Coag (Bld) [Time] 139.6 s Critically high 23.0-36. 5 [facility] Comment on above: Result Comment: IV Heparin Therapy Range: 66.0-92.0 sec Performed By: #### P TT #### [facility] [address] [place] [id number] Outside Cutter Hand: Breezy White MD CBCon 10-31-2023 Erythrocyte distribution width (RBC) [Ratio] 12.7 % Normal 11.8-14.4 [facility] Comment on above: Performed By: #### C BC #### [facility] [address] [place] [address] Outside Cutter Hand: Breezy White MD Hematocrit (Bld) [Volume fraction] 36.5 % Normal 36.3-47.1 [facility] Comment on above: Performed By: #### C BC #### [facility] [address] [place] [address] Outside Cutter Hand: Breezy White MD Hemoglobin (Bld) [Mass/Vol] 12.0 g/dL Normal 11.9-15.1 [facility] Comment on above: Performed By: #### C BC #### [facility] [address] [place] [address] Outside Cutter Hand: Breezy White MD MCH (RBC) [Entitic mass] 31.9 pg Normal 25.2-33.5 [facility] Comment on above: Performed By: #### C BC #### [address] [address] Outside Cutter Hand: Breezy White MD MCHC (RBC) [Mass/Vol] 32.9 g/dL Normal 28.4-34.8 [place] Comment on above: Performed By: #### C BC #### [address] [address] Outside Cutter Hand: Breezy White MD MCV (RBC) [Entitic vol] 97.1 fL Normal 82.6-102.9 [facility] Comment on above: Performed By: #### C BC #### [address] [address] Outside Cutter Hand: Breezy White MD NRBC Automated 0.0 per 100 WBC Normal 0.0 [facility] Comment on above: Performed By: #### C BC #### [address] [address] Outside Cutter Hand: Breezy White MD Platelet mean volume (Bld) [Entitic vol] 9.9 fL Normal 8.1-13.5 [facility] Comment on above: Performed By: #### C BC #### [address] [address] Outside Cutter Hand: Breezy White MD Platelets (Bld) [#/Vol] 149 10*3/uL Normal 138-453 [facility] Comment on above: Performed By: #### C BC #### [address] [address] Outside Cutter Hand: Breezy White MD RBC (Bld) [#/Vol] 3.76 10*6/uL Low 3.95-5.11 [facility] Comment on above: Performed By: #### C BC #### [address] [address] Outside Cutter Hand: Breezy White MD WBC (Bld) [#/Vol] 5.0 10*3/uL Normal 3.5-11.3 [facility] Comment on above: Performed By: #### C BC #### [address] [address] Outside Cutter Hand: Breezy White MD APTTon 2023 aPTT Coag (Bld) [Time] 59.7 s High 23.0-36.5 [facility] Comment on above: Result Comment: IV Heparin Therapy Range: 66.0-92.0 sec Performed By: #### P TT #### [place] [address] Outside Cutter Hand: Breezy White MD aPTT Coag (Bld) [Time] 75.3 s High 23.0-36.5 [facility] Comment on above: Result Comment: IV Heparin Therapy Range: 66.0-92.0 sec Performed By: #### P TT #### [place] [address] Outside Cutter Hand: Breezy White MD aPTT Coag (Bld) [Time] s Critically high 23.0-36. 5 [facility] Comment on above: Result Comment: IV Heparin Therapy Range: 66.0-92.0 sec Performed By: #### P TT #### [address] [address] Outside Cutter Hand: Breezy White MD APTTon 10-29-2023 aPTT Coag (Bld) [Time] 22.0 s Low 23.0-36.5 [facility] Comment on above: Result Comment: IV Heparin Therapy Range: 66.0-92.0 sec Performed By: #### P TT, HEPXA, CDP, BMPX, PT #### [facility] [address] [place] [address] Outside Cutter Hand: Breezy White MD Basic Metab w/rfx MGon 10-28 Anion gap [Moles/Vol] 12 mmol/L Normal 9-16 [place] Comment on above: Performed By: #### P TT, HEPXA, CDP, BMPX, PT #### [facility] [address] [place] [address] Outside Cutter Hand: Breezy White MD Calcium [Mass/Vol] 8.9 mg/dL Normal 8.6-10.4 [facility] Comment on above: Performed By: #### P TT, HEPXA, CDP, BMPX, PT #### [address] [address] Outside Cutter Hand: Breezy White MD Chloride [Moles/Vol] 105 mmol/L Normal 98-107 [facility] Comment on above: Performed By: #### P TT, HEPXA, CDP, BMPX, PT #### [facility] [address] [place] [address] Outside Cutter Hand: Breezy White MD CO2 [Moles/Vol] 22 mmol/L Normal 20-31 [facility] Comment on above: Performed By: #### P TT, HEPXA, CDP, BMPX, PT #### [facility] [address] [place] [address] Outside Cutter Hand: Breezy White MD Creatinine [Mass/Vol] 0.8 mg/dL Normal 0.50-0.90 [place] Comment on above: Performed By: #### P TT, HEPXA, CDP, BMPX, PT #### [facility] [address] [place] [id number] [employer]: Breezy White MD GFR/1.73 sq M.predicted among non-blacks MDRD (S/P/Bld) [Vol rate/Area] mL/min/{1.73_m2} Normal >60 [facility] Comment on above: Result Comment: These results are not intended for use in patients <18 years of age. eGFR results are calculated without a race factor using the 2020 CKD-EPI equation. Careful clinical correlation is recommended, particularly when comparing to results calculated using previous equations. The CKD-EPI equation is less accurate in patients with extremes of muscle mass, extra-renal metabolism of creatine, excessive creatine ingestion, or following therapy that affects renal tubular secretion. Performed By: #### P TT, HEPXA, CDP, BMPX, PT #### [facility] [employer] [address] [place] [phone] [employer]: Breezy White MD Glucose [Mass/Vol] 82 mg/dL Normal 74-99 [facility] Comment on above: Performed By: #### P TT, HEPXA, CDP, BMPX, PT #### [facility] [employer] [address] [place] [phone] [employer]: Breezy White MD Potassium [Moles/Vol] 4.0 mmol/L Normal 3.7-5.3 [place] Comment on above: Performed By: #### P TT, HEPXA, CDP, BMPX, PT #### [facility] [employer] [address] [place] [phone] [employer]: Breezy White MD Sodium [Moles/Vol] 139 mmol/L Normal 136-145 [facility] Comment on above: Performed By: #### P TT, HEPXA, CDP, BMPX, PT #### [facility] [employer] [address] [place] [phone] [employer]: Breezy White MD Urea nitrogen [Mass/Vol] 10 mg/dL Normal 6-20 [facility] Comment on above: Performed By: #### P TT, HEPXA, CDP, BMPX, PT #### [address] [address] Outside Cutter Hand: Breezy White MD CBC with Diffon 10-29-2023 Abs. Basophil <0.03 Normal 0.00-0.20 [facility] Comment on above: Performed By: #### P TT, HEPXA, CDP, BMPX, PT #### [place] [address] [employer] C[employer]: Breezy White MD Abs.Imm.Granulocyte <0.03 Normal 0.00-0.30 [facility] Comment on above: Performed By: #### P TT, HEPXA, CDP, BMPX, PT #### [place] [address] [employer]: Breezy White MD Abs.Neutrophil (Seg) 2.93 k/uL Normal 1.50-8.10 [facility] Comment on above: Performed By: #### P TT, HEPXA, CDP, BMPX, PT #### [place] [address] [employer]: Breezy White MD Basophils/100 WBC (Bld) 0 % Normal 0-2 [facility] Comment on above: Performed By: #### P TT, HEPXA, CDP, BMPX, PT #### [place] [address] [employer]: Breezy White MD Eosinophils (Bld) [#/Vol] 0.08 10*3/uL Normal 0.00-0.44 [facility] Comment on above: Performed By: #### P TT, HEPXA, CDP, BMPX, PT #### [place] [address] [employer]: Breezy White MD Eosinophils/100 WBC (Bld) 2 % Normal 1-4 [facility] Comment on above: Performed By: #### P TT, HEPXA, CDP, BMPX, PT #### [address] [address] Outside C[employer] Hand: Breezy White MD Erythrocyte distribution width (RBC) [Ratio] 12.8 % Normal 11.8-14.4 [facility] Comment on above: Performed By: #### P TT, HEPXA, CDP, BMPX, PT #### [facility] [employer] [address] [place] [phone] [employer]: Breezy White MD Hematocrit (Bld) [Volume fraction] 38.6 % Normal 36.3-47.1 [facility] Comment on above: Performed By: #### P TT, HEPXA, CDP, BMPX, PT #### [address] [address] Outside C[employer] Hand: Breezy White MD Hemoglobin (Bld) [Mass/Vol] 12.5 g/dL Normal 11.9-15.1 [facility] Comment on above: Performed By: #### P TT, HEPXA, CDP, BMPX, PT #### [address] [address] Outside Cutter Hand: Breezy White MD Immature granulocytes/100 WBC (Bld) 0 % Normal 0 [facility] Comment on above: Performed By: #### P TT, HEPXA, CDP, BMPX, PT #### [place] [address] [employer]: Breezy White MD Lymphocytes (Bld) [#/Vol] 1.24 10*3/uL Normal 1.10-3.70 [facility] Comment on above: Performed By: #### P TT, HEPXA, CDP, BMPX, PT #### [address] [address] [employer] Cutter [employer]: Breezy White MD Lymphocytes/100 WBC (Bld) 27 % Normal 24-43 [facility] Comment on above: Performed By: #### P TT, HEPXA, CDP, BMPX, PT #### [address] [address] Outside Cutter Hand: Breezy White MD MCH (RBC) [Entitic mass] 31.9 pg Normal 25.2-33.5 [facility] Comment on above: Performed By: #### P TT, HEPXA, CDP, BMPX, PT #### [address] [address] Outside Cutter Hand: Breezy White MD MCHC (RBC) [Mass/Vol] 32.4 g/dL Normal 28.4-34.8 [place] Comment on above: Performed By: #### P TT, HEPXA, CDP, BMPX, PT #### [place] [address] [employer]: Breezy White MD MCV (RBC) [Entitic vol] 98.5 fL Normal 82.6-102.9 [facility] Comment on above: Performed By: #### P TT, HEPXA, CDP, BMPX, PT #### [address] [address] [employer] Cutter Hand: Breezy White MD Monocytes (Bld) [#/Vol] 0.35 10*3/uL Normal 0.10-1.20 [facility] Comment on above: Performed By: #### P TT, HEPXA, CDP, BMPX, PT #### [address] [address] Outside Cutter Hand: Breezy White MD Monocytes/100 WBC (Bld) 8 % Normal 3-12 [facility] Comment on above: Performed By: #### P TT, HEPXA, CDP, BMPX, PT #### [address] [address] Outside Cutter Hand: Breezy White MD Neutrophil (Seg) 63 % Normal 36-65 [facility] Comment on above: Performed By: #### P TT, HEPXA, CDP, BMPX, PT #### [address] [address] Outside Cutter Hand: Breezy White MD NRBC Automated 0.0 per 100 WBC Normal 0.0 [facility] Comment on above: Performed By: #### P TT, HEPXA, CDP, BMPX, PT #### [facility] [employer] [address] [place] [phone] [employer]: Breezy White MD Platelet mean volume (Bld) [Entitic vol] 10.2 fL Normal 8.1-13.5 [facility] Comment on above: Performed By: #### P TT, HEPXA, CDP, BMPX, PT #### [address] [address] Outside Cutter Hand: Breezy White MD Platelets (Bld) [#/Vol] 152 10*3/uL Normal 138-453 [facility] Comment on above: Performed By: #### P TT, HEPXA, CDP, BMPX, PT #### [facility] [employer] [address] [place] [phone] [employer] C[employer]: Breezy White MD RBC (Bld) [#/Vol] 3.92 10*6/uL Low 3.95-5.11 [facility] Comment on above: Performed By: #### P TT, HEPXA, CDP, BMPX, PT #### [facility] [employer] [address] [place] [phone] Outside C[employer] Hand: Berezy White MD WBC (Bld) [#/Vol] 4.6 10*3/uL Normal 3.5-11.3 [facility] Comment on above: Performed By: #### P TT, HEPXA, CDP, BMPX, PT #### [address] [place], [place] [phone] Outside Cutter Hand: Breezy White MD Heparin Anti-Xaon 10-29-2023 Heparin Anti-Xa 1.59 IU/L Normal [facility] Comment on above: Performed By: #### P TT, HEPXA, CDP, BMPX, PT #### [facility] [employer] [address] [place] [address] [phone] Outside Cutter Hand: Breezy White MD Laboratory - Coagulationon 0 10-29-2023 aPTT Coag (Bld) [Time] 102.5 s 48.2-68.6 [facility] Comment on above: RESULTS CALLED TO YAMILE WAGNER RN @BY Tanja Jj at 0615 PTon 10-29-2023 INR Coag (PPP) [Relative time] 1.1 {INR} Normal [facility] Comment on above: Result Comment: Therapeutic Range: Moderate Anticoagulant Intensity: INR = 2.0-3.0 High Anticoagulant Intensity: INR = 2.5-3.5 Performed By: #### P TT, HEPXA, CDP, BMPX, PT #### [facility] [employer] [address] [place], [place] [phone] Outside Cutter Hand: Breezy White MD PT Coag (PPP) [Time] 13.8 s Normal 11.7-14.9 [facility] Comment on above: Performed By: #### P TT, HEPXA, CDP, BMPX, PT #### [facility] [employer] [address] [place] [address] [phone] Outside C[employer] Hand: Breezy White MD Activated partial thrombopla stin time (aPTT) in platelet poor plasma by coagulation aon 10-28-2023 aPTT Coag (PPP) [Time] 26.7 s 22.3-36.2 [facility] Basophils Auto (Bld) [#/Vol] on 10-28-2023 Basophils (Bld) [#/Vol] 0.0 10 3/uL 0.0-0.1 [facility] Basophils/100 WBC Auto (Bld) on 10-28-2023 Basophils/100 WBC (Bld) 0.4 % 0.2-2.0 [facility] Eosinophils/100 WBC Auto (Bl d)on 10-28-2023 Eosinophils/100 WBC (Bld) 1.1 % 0.9-7.0 [facility] Erythrocyte distribution wid th Auto (RBC) [Ratio]on 10-28-2023 Erythrocyte distribution width (RBC) [Ratio] 12.8 % 11.0-15.0 [facility] Estimated glomerular filtrat ion rate (GFR) non- Americanon 10-28-2023 GFR/1.73 sq M.predicted among non-blacks MDRD (S/P/Bld) [Vol rate/Area] mL/min/{1.73_m2} >=60 [facility] Globulin Calc (S) [Mass/Vol] on 10-28-2023 Globulin (S) [Mass/Vol] 3.6 g/dL [facility] Hematocrit Auto (Bld) [Volum e fraction]on 10-28-2023 Hematocrit (Bld) [Volume fraction] 35.3 % 36.0-48.0 [facility] Hemoglobin [Mass/volume] in Bloodon 10-28-2023 Hemoglobin (Bld) [Mass/Vol] 11.6 g/dL 12.0-16.0 [facility] INR in Platelet poor plasma by Coagulation assayon 10-28-2023 INR Coag (PPP) [Relative time] 0.98 {INR} [facility] Comment on above: DESIRED INR:2.0-3.0 CONDITIONS NOT LISTED BELOW2.5-3.5 FOR PROSTHETIC HEART VALVE REPLACEMENT2.5-3.5 RECURRENT THROMBOSIS Laboratory - Chemistry and C hemistry - challengeon 10-28-2023 Albumin [Mass/Vol] 3.2 g/dL 3.4-5.0 [facility] ALP [Catalytic activity/Vol] 82 U/L 46-116 [facility] ALT [Catalytic activity/Vol] 12 U/L 14-59 [facility] AST [Catalytic activity/Vol] 15 U/L 15-37 [facility] Bilirubin [Mass/Vol] 0.4 mg/dL 0.2-1.0 [facility] Calcium [Mass/Vol] 9.1 mg/dL 8.5-10.1 [facility] Chloride [Moles/Vol] 107 mmol/L 98-107 [facility] CO2 [Moles/Vol] 27.8 mmol/L 21.0-32.0 [facility] Creatinine [Mass/Vol] 0.92 mg/dL 0.55-1.02 [facility] GFR/1.73 sq M.predicted MDRD (S/P/Bld) [Vol rate/Area] mL/min/{1.73_m2} >=60 [facility] Glucose [Mass/Vol] 90 mg/dL 74-106 [facility] Natriuretic peptide B (Bld) [Mass/Vol] 152.0 pg/mL <=450.0 [facility] Potassium [Moles/Vol] 4.0 mmol/L 3.5-5.1 [facility] Protein [Mass/Vol] 6.8 g/dL 6.4-8.2 [facility] Sodium [Moles/Vol] 141 mmol/L 136-145 [facility] Urea nitrogen [Mass/Vol] 14.0 mg/dL 7.0-18.0 [facility] Urea nitrogen/Creatinine [Mass ratio] 15.2 mg/mg [facility] Laboratory - Hematology and Cell countson 10-28-2023 Immature granulocytes/100 WBC (Bld) 0.2 % 0.0-0.5 [facility] Leukocytes [#/volume] correc nneka for nucleated erythrocytes in Blood by Automated counon 10-28-2023 WBC corrected for nucl RBC Auto (Bld) [#/Vol] 5.5 10 3/uL 4.0-11.0 [facility] Lymphocytes Auto (Bld) [#/Vo l]on 10-28-2023 Lymphocytes (Bld) [#/Vol] 1.4 10 3/uL 1.2-3.8 [facility] Lymphocytes/100 WBC Auto (Bl d)on 10-28-2023 Lymphocytes/100 WBC (Bld) 25.2 % 20.5-60.0 [facility] MCH Auto (RBC) [Entitic mass ]on 10-28-2023 MCH (RBC) [Entitic mass] 31.8 pg 26.7-34.0 [facility] MCHC Auto (RBC) [Mass/Vol]on 10-28-2023 MCHC (RBC) [Mass/Vol] 32.9 g/dL 29.9-35.2 [facility] MCV Auto (RBC) [Entitic vol] on 10-28-2023 MCV (RBC) [Entitic vol] 96.7 fL 81.0-99.0 [facility] Monocytes Auto (Bld) [#/Vol] on 10-28-2023 Monocytes (Bld) [#/Vol] 0.4 10 3/uL 0.3-0.8 [facility] Monocytes/100 WBC Auto (Bld) on 10-28-2023 Monocytes/100 WBC (Bld) 7.3 % 1.7-12.0 [facility] Neutrophils Auto (Bld) [#/Vo l]on 10-28-2023 Neutrophils (Bld) [#/Vol] 3.6 10 3/uL 1.4-6.5 [facility] Neutrophils/100 WBC Auto (Bl d)on 10-28-2023 Neutrophils/100 WBC (Bld) 65.8 % 43.0-75.0 [facility] No Panel Informationon 10-27 Eosinophils # (Auto) 0.1 10 3/uL 0.0-0.7 [facility] Immature Granulocyte # (Auto) 0.01 10 3/uL 0.00-0.03 [facility] Troponin I High Sensitivity 4.1 pg/mL 4.0-51.3 [facility] Comment on above: CUT-OFF POINTS HAVE BEEN ESTABLISHED BASED ON THE FOURTHUNIVERSAL DEFINITION OF MYOCARDIAL INFARCTION. THE UPPERREFERENCE LIMIT (URL) OF TROPONIN, DEFINED THE 99THPERCENTILE OF cTnI DISTRIBUTION IN A REFERENCE POPULATION,HAS BEEN CONFIRMED THE DECISION THRESHOLD FOR MIDIAGNOSIS.99TH PERCENTILE = 51.4 PG/MLNOTE: HIGH-SENSITIVITY TROPONIN ASSAY IS NOT INTENDED TO BEUSED IN ISOLATION BUT SHOULD BE INTERPRETED IN CONJUNCTIONWITH OTHER DIAGNOSTIC AND CLINICAL INFORMATION. Platelet mean volume Auto (B ld) [Entitic vol]on 10-28-2023 Platelet mean volume (Bld) [Entitic vol] 9.4 fL 9.5-13.5 [facility] Platelets Auto (Bld) [#/Vol] on 10-28-2023 Platelets (Bld) [#/Vol] 154 10 3/uL 150-450 [facility] Prothrombin time (PT)on PT Coag (PPP) [Time] 10.4 s 9.0-11.6 [facility] RBC Auto (Bld) [#/Vol]on RBC (Bld) [#/Vol] 3.65 10 6/uL 4.20-5.40 [facility] Serum or plasma albumin/glob ulin mass ratioon 10-28-2023 Albumin/Globulin [Mass ratio] 0.9 {ratio} [facility] Serum or plasma anion gap de terminationon 10-28-2023 Anion gap [Moles/Vol] 10.2 [facility] Basophils Auto (Bld) [#/Vol] on 10-27-2023 Basophils (Bld) [#/Vol] 0.0 10 3/uL 0.0-0.1 [facility] Basophils/100 WBC Auto (Bld) on 10-27-2023 Basophils/100 WBC (Bld) 0.6 % 0.2-2.0 [facility] Eosinophils/100 WBC Auto (Bl d)on 10-27-2023 Eosinophils/100 WBC (Bld) 1.9 % 0.9-7.0 [facility] Erythrocyte distribution wid th Auto (RBC) [Ratio]on 10-27-2023 Erythrocyte distribution width (RBC) [Ratio] 13.0 % 11.0-15.0 [facility] Estimated glomerular filtrat ion rate (GFR) non- Americanon 10-27-2023 GFR/1.73 sq M.predicted among non-blacks MDRD (S/P/Bld) [Vol rate/Area] mL/min/{1.73_m2} >=60 [facility] Globulin Calc (S) [Mass/Vol] on 05-07-2024 Globulin (S) [Mass/Vol] 3.3 g/dL [facility] Hematocrit Auto (Bld) [Volum e fraction]on 10-27-2023 Hematocrit (Bld) [Volume fraction] 34.1 % 36.0-48.0 [facility] Hemoglobin [Mass/volume] in Bloodon 10-27-2023 Hemoglobin (Bld) [Mass/Vol] 11.0 g/dL 12.0-16.0 [facility] INR in Platelet poor plasma by Coagulation assayon 10-27-2023 INR Coag (PPP) [Relative time] 1.02 {INR} [facility] Comment on above: DESIRED INR:2.0-3.0 CONDITIONS NOT LISTED BELOW2.5-3.5 FOR PROSTHETIC HEART VALVE REPLACEMENT2.5-3.5 RECURRENT THROMBOSIS Laboratory - Chemistry and C hemistry - challengeon 10-27-2023 Albumin [Mass/Vol] 2.8 g/dL 3.4-5.0 [facility] ALP [Catalytic activity/Vol] 74 U/L 46-116 [facility] ALT [Catalytic activity/Vol] 12 U/L 14-59 [facility] AST [Catalytic activity/Vol] 11 U/L 15-37 [facility] Bilirubin [Mass/Vol] 0.5 mg/dL 0.2-1.0 [facility] Calcium [Mass/Vol] 9.0 mg/dL 8.5-10.1 [facility] Chloride [Moles/Vol] 106 mmol/L 98-107 [facility] CO2 [Moles/Vol] 25.5 mmol/L 21.0-32.0 [facility] Creatinine [Mass/Vol] 0.76 mg/dL 0.55-1.02 [facility] GFR/1.73 sq M.predicted MDRD (S/P/Bld) [Vol rate/Area] mL/min/{1.73_m2} >=60 [facility] Glucose [Mass/Vol] 87 mg/dL 74-106 [facility] Lactate [Moles/Vol] 1.1 mmol/L 0.4-2.0 [facility] Potassium [Moles/Vol] 4.2 mmol/L 3.5-5.1 [facility] Protein [Mass/Vol] 6.1 g/dL 6.4-8.2 [facility] Sodium [Moles/Vol] 140 mmol/L 136-145 [facility] Urea nitrogen [Mass/Vol] 8.0 mg/dL 7.0-18.0 [facility] Urea nitrogen/Creatinine [Mass ratio] 10.5 mg/mg [facility] Laboratory - Coagulationon 0 10-27-2023 aPTT Coag (Bld) [Time] 81.9 s 48.2-68.6 [facility] Comment on above: RESULTS CALLED TO Lin COFFEY)@BY Estela Montanez MLT at 0504 Laboratory - Hematology and Cell countson 10-27-2023 Immature granulocytes/100 WBC (Bld) 0.2 % 0.0-0.5 [facility] Leukocytes [#/volume] correc nneka for nucleated erythrocytes in Blood by Automated counon 10-27-2023 WBC corrected for nucl RBC Auto (Bld) [#/Vol] 4.7 10 3/uL 4.0-11.0 [facility] Lymphocytes Auto (Bld) [#/Vo l]on 10-27-2023 Lymphocytes (Bld) [#/Vol] 1.8 10 3/uL 1.2-3.8 [facility] Lymphocytes/100 WBC Auto (Bl d)on 10-27-2023 Lymphocytes/100 WBC (Bld) 37.7 % 20.5-60.0 [facility] MCH Auto (RBC) [Entitic mass ]on 10-27-2023 MCH (RBC) [Entitic mass] 31.4 pg 26.7-34.0 [facility] MCHC Auto (RBC) [Mass/Vol]on 10-27-2023 MCHC (RBC) [Mass/Vol] 32.3 g/dL 29.9-35.2 [facility] MCV Auto (RBC) [Entitic vol] on 10-27-2023 MCV (RBC) [Entitic vol] 97.4 fL 81.0-99.0 [facility] Monocytes Auto (Bld) [#/Vol] on 10-27-2023 Monocytes (Bld) [#/Vol] 0.3 10 3/uL 0.3-0.8 [facility] Monocytes/100 WBC Auto (Bld) on 10-27-2023 Monocytes/100 WBC (Bld) 7.2 % 1.7-12.0 [facility] Neutrophils Auto (Bld) [#/Vo l]on 10-27-2023 Neutrophils (Bld) [#/Vol] 2.5 10 3/uL 1.4-6.5 [facility] Neutrophils/100 WBC Auto (Bl d)on 10-27-2023 Neutrophils/100 WBC (Bld) 52.4 % 43.0-75.0 [facility] No Panel Informationon 10-26 Eosinophils # (Auto) 0.1 10 3/uL 0.0-0.7 [facility] Immature Granulocyte # (Auto) 0.01 10 3/uL 0.00-0.03 [facility] Platelet mean volume Auto (B ld) [Entitic vol]on 10-27-2023 Platelet mean volume (Bld) [Entitic vol] 9.9 fL 9.5-13.5 [facility] Platelets Auto (Bld) [#/Vol] on 10-27-2023 Platelets (Bld) [#/Vol] 122 10 3/uL 150-450 [facility] Prothrombin time (PT)on PT Coag (PPP) [Time] 10.8 s 9.0-11.6 [facility] RBC Auto (Bld) [#/Vol]on RBC (Bld) [#/Vol] 3.50 10 6/uL 4.20-5.40 [facility] Serum or plasma albumin/glob ulin mass ratioon 10-27-2023 Albumin/Globulin [Mass ratio] 0.8 {ratio} [facility] Serum or plasma anion gap de terminationon 10-27-2023 Anion gap [Moles/Vol] 12.7 mmol/L Fi [facility] Amorphous urine sedimenton 0 10-26-2023 Amorphous sediment LM Ql (Urine sed) FEW [facility] Automated epithelial cells c ount in urine sediment (number/area)on 10-26-2023 Epithelial cells Auto (Urine sed) [#/Area] MANY #/LPF NONE/RARE [facility] Bacteria [Presence] in Urine by Automatedon 10-26-2023 Bacteria Auto Ql (U) NONE SEEN #/HPF NONE SEEN [facility] Basophils Auto (Bld) [#/Vol] on 10-26-2023 Basophils (Bld) [#/Vol] 0.0 10 3/uL 0.0-0.1 [facility] Basophils/100 WBC Auto (Bld) on 10-26-2023 Basophils/100 WBC (Bld) 0.5 % 0.2-2.0 [facility] Bilirubin Auto test strip (U ) [Mass/Vol]on 10-26-2023 Bilirubin (U) [Mass/Vol] Negative NEGATIVE [facility] Casts typing in urine sedime nt by light microscopyon 10-26-2023 Casts LM Nom (Urine sed) NONE SEEN #/LPF NONE SEEN [facility] Eosinophils/100 WBC Auto (Bl d)on 10-26-2023 Eosinophils/100 WBC (Bld) 1.4 % 0.9-7.0 [facility] Erythrocyte distribution wid th Auto (RBC) [Ratio]on 10-26-2023 Erythrocyte distribution width (RBC) [Ratio] 12.7 % 11.0-15.0 [facility] Estimated glomerular filtrat ion rate (GFR) non- Americanon 10-26-2023 GFR/1.73 sq M.predicted among non-blacks MDRD (S/P/Bld) [Vol rate/Area] mL/min/{1.73_m2} >=60 [facility] Globulin Calc (S) [Mass/Vol] on 10-26-2023 Globulin (S) [Mass/Vol] 4.2 g/dL [facility] HCG ( test) IA.rapi d Ql (U)on 10-26-2023 HCG ( test) Ql (U) Negative NEGATIVE [facility] Hematocrit Auto (Bld) [Volum e fraction]on 10-26-2023 Hematocrit (Bld) [Volume fraction] 38.5 % 36.0-48.0 [facility] Hemoglobin [Mass/volume] in Bloodon 10-26-2023 Hemoglobin (Bld) [Mass/Vol] 12.7 g/dL 12.0-16.0 [facility] INR in Platelet poor plasma by Coagulation assayon 10-26-2023 INR Coag (PPP) [Relative time] 0.96 {INR} [facility] Comment on above: DESIRED INR:2.0-3.0 CONDITIONS NOT LISTED BELOW2.5-3.5 FOR PROSTHETIC HEART VALVE REPLACEMENT2.5-3.5 RECURRENT THROMBOSIS Laboratory - Chemistry and C hemistry - challengeon 10-26-2023 Glucose (U) [Mass/Vol] Negative NEGATIVE [facility] Ketones Ql (U) Negative NEGATIVE [facility] pH (U) 6.0 [pH] 5.0-9.0 [facility] Specific gravity (U) [Rel density] >=1.030 1.005-1.025 [facility] Urobilinogen Qn (U) 1.0 {José'U}/dL 0.2-1.0 [facility] Albumin [Mass/Vol] 3.4 g/dL 3.4-5.0 [facility] ALP [Catalytic activity/Vol] 98 U/L 46-116 [facility] ALT [Catalytic activity/Vol] 11 U/L 14-59 [facility] AST [Catalytic activity/Vol] 9 U/L 15-37 [facility] Bilirubin [Mass/Vol] 0.5 mg/dL 0.2-1.0 [facility] Calcium [Mass/Vol] 9.5 mg/dL 8.5-10.1 [facility] Chloride [Moles/Vol] 104 mmol/L 98-107 [facility] CO2 [Moles/Vol] 25.6 mmol/L 21.0-32.0 [facility] Creatinine [Mass/Vol] 0.94 mg/dL 0.55-1.02 [facility] GFR/1.73 sq M.predicted MDRD (S/P/Bld) [Vol rate/Area] mL/min/{1.73_m2} >=60 [facility] Glucose [Mass/Vol] 96 mg/dL 74-106 [facility] Lactate [Moles/Vol] 2.3 mmol/L 0.4-2.0 [facility] Comment on above: RESULTS CALLED TO Vj Victoria (RN)@BY Estela Montanez MLT at 2012 Natriuretic peptide B (Bld) [Mass/Vol] 55.0 pg/mL <=450.0 [facility] Potassium [Moles/Vol] 3.2 mmol/L 3.5-5.1 [facility] Protein [Mass/Vol] 7.6 g/dL 6.4-8.2 [facility] Sodium [Moles/Vol] 140 mmol/L 136-145 [facility] TSH Qn 3.806 m[IU]/L 0.358-3.740 [facility] Urea nitrogen [Mass/Vol] 10.0 mg/dL 7.0-18.0 [facility] Urea nitrogen/Creatinine [Mass ratio] 10.6 mg/mg [facility] Laboratory - Hematology and Cell countson 10-26-2023 Immature granulocytes/100 WBC (Bld) 0.3 % 0.0-0.5 [facility] Laboratory - Specimen inform ationon 10-26-2023 Appearance (U) CLEAR CLEAR [facility] Color (U) LT. YELLOW YELLOW [facility] Laboratory - Urinalysison Leukocyte esterase Test strip Ql (U) SMALL NEGATIVE [facility] Nitrite Ql (U) Negative NEGATIVE [facility] Protein Ql (U) Negative NEG/TRACE [facility] Leukocytes [#/area] in Urine sediment by Automated counton 10-26-2023 WBC Auto (Urine sed) [#/Area] NONE SEEN #/HPF 0-2 [facility] Leukocytes [#/area] in Urine sediment by Microscopy high power fieldon 10-26-2023 WBC LM.HPF (Urine sed) [#/Area] 5-10 #/HPF NONE SEEN [facility] Leukocytes [#/volume] correc nneka for nucleated erythrocytes in Blood by Automated counon 10-26-2023 WBC corrected for nucl RBC Auto (Bld) [#/Vol] 6.3 10 3/uL 4.0-11.0 [facility] [facility] Lymphocytes Auto (Bld) [#/Vo l]on 10-26-2023 Lymphocytes (Bld) [#/Vol] 1.4 10 3/uL 1.2-3.8 [facility] Lymphocytes/100 WBC Auto (Bl d)on 10-26-2023 Lymphocytes/100 WBC (Bld) 21.8 % 20.5-60.0 [facility] MCH Auto (RBC) [Entitic mass ]on 10-26-2023 MCH (RBC) [Entitic mass] 31.8 pg 26.7-34.0 [facility] MCHC Auto (RBC) [Mass/Vol]on 10-26-2023 MCHC (RBC) [Mass/Vol] 33.0 g/dL 29.9-35.2 [facility] MCV Auto (RBC) [Entitic vol] on 10-26-2023 MCV (RBC) [Entitic vol] 96.5 fL 81.0-99.0 [facility] Monocytes Auto (Bld) [#/Vol] on 10-26-2023 Monocytes (Bld) [#/Vol] 0.5 10 3/uL 0.3-0.8 [facility] Monocytes/100 WBC Auto (Bld) on 10-26-2023 Monocytes/100 WBC (Bld) 7.2 % 1.7-12.0 [facility] Mucus LM Ql (Urine sed)on Mucus Ql (Urine sed) SMALL NONE SEEN [facility] Neutrophils Auto (Bld) [#/Vo l]on 10-26-2023 Neutrophils (Bld) [#/Vol] 4.3 10 3/uL 1.4-6.5 [facility] Neutrophils/100 WBC Auto (Bl d)on 10-26-2023 Neutrophils/100 WBC (Bld) 68.8 % 43.0-75.0 [facility] No Panel Informationon 10-25 Urine Culture Reflexed YES [facility] Urine Microscopic Review YES [facility] Eosinophils # (Auto) 0.1 10 3/uL 0.0-0.7 [facility] Immature Granulocyte # (Auto) 0.02 10 3/uL 0.00-0.03 [facility] Troponin I High Sensitivity <4.0 pg/mL 4.0-51.3 [facility] Comment on above: CUT-OFF POINTS HAVE BEEN ESTABLISHED BASED ON THE FOURTHUNIVERSAL DEFINITION OF MYOCARDIAL INFARCTION. THE UPPERREFERENCE LIMIT (URL) OF TROPONIN, DEFINED THE 99THPERCENTILE OF cTnI DISTRIBUTION IN A REFERENCE POPULATION,HAS BEEN CONFIRMED THE DECISION THRESHOLD FOR MIDIAGNOSIS.99TH PERCENTILE = 51.4 PG/MLNOTE: HIGH-SENSITIVITY TROPONIN ASSAY IS NOT INTENDED TO BEUSED IN ISOLATION BUT SHOULD BE INTERPRETED IN CONJUNCTIONWITH OTHER DIAGNOSTIC AND CLINICAL INFORMATION. Platelet mean volume Auto (B ld) [Entitic vol]on 10-26-2023 Platelet mean volume (Bld) [Entitic vol] 9.8 fL 9.5-13.5 [facility] Platelets Auto (Bld) [#/Vol] on 10-26-2023 Platelets (Bld) [#/Vol] 138 10 3/uL 150-450 [facility] Prothrombin time (PT)on PT Coag (PPP) [Time] 10.2 s 9.0-11.6 [facility] RBC Auto (Bld) [#/Vol]on RBC (Bld) [#/Vol] 3.99 10 6/uL 4.20-5.40 [facility] Serum or plasma albumin/glob ulin mass ratioon 10-26-2023 Albumin/Globulin [Mass ratio] 0.8 {ratio} [facility] Serum or plasma anion gap de terminationon 10-26-2023 Anion gap [Moles/Vol] 13.6 [facility] hemoglobin detection b y automated test stripon 10-26-2023 Hemoglobin Auto test strip Ql (U) Negative NEGATIVE [facility] Urine sediment crystal ident ification by light microscopyon 10-26-2023 Crystals LM Nom (Urine sed) None Seen #/HPF None Seen [facility] Cardiac Device Check - Remot michael 04-24-2023 Radiology Study observation (narrative) [facility] Work Phone: Cardiac Device Check - Remot eOrdered By: Rita Olivia on 04-24-2023 [facility] Work Phone: Office Visit (Cardiology)on 01-20-2023 Follow-up visit Diagnoses/Problems Assessed Complete heart block (426.0) (I44.2) Sinus node dysfunction (427.81) (I49.5) Sinus bradycardia (427.89) (R00.1) Cardiac pacemaker (V45.01) (Z95.0) Syncope (780.2) (R55) Sinus tachycardia (427.89) (R00.0) Atrial tachycardia (427.89) (I47.1) 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 Device Eval - Sngl/Dual/Multiple Pacemaker; Status:Hold For - Scheduling,Retrospective Authorization; Requested for:[id number]; Class 2 obesity with body mass index (BMI) of 39.0 to 39.9 in adult Losing just 5 to 10 pounds may lower your risk of health problems.; Status:Complete - Retrospective Authorization; Done: 20Jan2023 Weight Loss Do's and Don'ts; Status:Complete - Retrospective Authorization; Done: 20Jan2023 Sinus tachycardia Start: Metoprolol Succinate ER 25 MG Oral Tablet Extended Release 24 Hour; TAKE 1 TABLET DAILY SocHx: Non-smoker Tobacco Use Screening; Status:Complete; Done: 20Jan2023 Patient Instructions Follow up visit in [address] Rita Olivia MD, FACC, FACP, FHRS Continue same medications/treatment. Patient educated on proper medication use. Patient educated on risk factor modification. Please bring any lab results from other providers/physicians to your next appointment. Please bring all medicines, vitamins, and herbal supplements with you when you come to the office. Prescriptions will not be filled unless you are compliant with your follow up appointments or have a follow up appointment scheduled as per instruction of your physician. Refills should be requested at the time of your visit. Lucero Yarbrough PRODUCTION GRAPHIC DESIGNER, am scribing for and in the presence of Dr. Rita Olivia, FACC, FACP, FHRS The provider reviewed the following test(s) and result(s) with the patient: ECG and device check Chief Complaint Patient presented today for a 6 month follow up. Adult Risk Screening Initial Fall Risk Screening: MARICARMEN has not fallen in the last 6 months. Tobacco Screening: MARICARMEN does not use tobacco. History of Present Illness She is here for electrophysiology follow-up. The patient is here to discuss bradycardia and pacemaker. She had no issues with delivery of her baby. The baby is now 5 months old. She is not breast-feeding. Rarely she may get a spike in her heart rate The patient denies any lightheadedness, near syncope, syncope,chest discomfort, orthopnea, PND, orthopnea, or edema. The device site continues to be well-healed and unchanged. The patient denies any redness, swelling, or drainage of the site. See ROS, PMH, FMH, and surgical history for details. Personal review of ECG and cardiac data reviewed . Outside records: OV with mi June 2022 ECG June 2022 Device check June 2022 OV with mi December 2021 Device check December 2021 ECG December 2021 Device Check: Today. [employer] 2272 pacemaker. On field alert. Discussed field alert status. Estimate longevity device over 8 years. 44 % atrial pacing. Less than 1% ventricular pacing.. SVT, poss atrial tachycardia, noted. Less than 1% AT/AF ECG: Today. Normal sinus rhythm. Normal axis. Corrected QT interval 420 ms Imp / Plan Chronotropic incompetence intermittent complete heart block, and sinus node dysfunction with symptoms of near syncope and syncope. Documented over 4-second pause by loop recorder. History of negative EP study with no inducible arrhythmias. Stable. Chronic. Acceptable heart rate histogram. History of loop recorder 2019 and subsequent removal of loop recorder after documentation of pause and intermittent complete heart block [employer] 2272 pacemaker in 2020. Device and alert. Stable. Normal device function. Reviewed device check with patient. Ordered device checks. Continue to alternate remote check with device clinic paired With EP office visit. PSVT, possible atrial tachycardia. Recommend increase fluid intake. Start metoprolol succinate 25 mg daily. New prescription sent Negative CTA for pulmonary embolism. Chronic. Stable. No symptoms. Chronic gastroparesis. Port removed once fluid status stable. Pseudotumor cerebri per MRI per patient report. Chronic. Stable. Takes Diamox and lamotrigine. Patient report, she is on medical disability due to [employer] network and intra cerebral pressure. Follows with neurology and neurosurgery Seizure disorder. Chronic. Stable. Follows with neurology I uncomplicated delivery 5 months ago. No arrhythmias iss (more content not included)... Normal GTX Messaging Tobacco Screening.on 023 Adult depression screening assessment No [facility] [employer] DO Work Phone: Fall risk assessment a) No falls within the last year [facility] [employer] [address] DO Work Phone: Tobacco use status CPHS b) No [facility] DO Work Phone: Alanine aminotransferase [En zymatic activity/volume] in Serum or PlasmaOrdered By: Ke Cage on 12-11-2022 ALT [Catalytic activity/Vol] 13 U/L 7-52 [facility] Albumin [Mass/volume] in Ser um or Plasma by Bromocresol green (BCG) dye binding methoOrdered By: eK Cage on 12-11-2022 Albumin BCG dye [Mass/Vol] 4.8 g/dL 3.5-5.7 [facility] Alkaline phosphatase [Enzyma tic activity/volume] in Serum or PlasmaOrdered By: Ke Cage on 12-11-2022 ALP [Catalytic activity/Vol] 83 U/L 34-104 [facility] Amphetamine Screen Ql (U)Ord ered By: Ke Cage on 12-11-2022 Amphetamines Ql (U) Negative Negative [facility] Aspartate aminotransferase [ Enzymatic activity/volume] in Serum or PlasmaOrdered By: Ke Cage on 12-11-2022 AST [Catalytic activity/Vol] 20 U/L 13-39 [facility] Automated erythrocytes count in urine sediment (number/area)Ordered By: Ke Cage on 12-11-2022 RBC Auto (Urine sed) [#/Area] 0-1 [HPF] 0-4 [facility] Automated leukocytes count i n urine sediment (number/area)Ordered By: Ke Cage on 12-11-2022 WBC Auto (Urine sed) [#/Area] 5-9 [HPF] 0-4 [facility] Barbiturates [Presence] in U rine by Screen methodOrdered By: Ke Cage on 12-11-2022 Barbiturates Screen Ql (U) Negative Negative [facility] Basophils Auto (Bld) [#/Vol] Ordered By: Ke aCge on 12-11-2022 Basophils (Bld) [#/Vol] 0.0 10*3/uL 0.0-0.2 [facility] Basophils/100 WBC Auto (Bld) Ordered By: Ke Cage on 12-11-2022 Basophils/100 WBC (Bld) 0.7 % . [facility] Benzodiazepines Screen Ql (U )Ordered By: Ke Cage on 12-11-2022 Benzodiazepines Ql (U) Negative Negative [facility] Benzoylecgonine [Presence] i n Urine by Screen methodOrdered By: Ke Cage on 12-11-2022 Benzoylecgonine Screen Ql (U) Negative Negative [facility] Bilirubin Auto test strip Ql (U)Ordered By: Ke Cage on 12-11-2022 Bilirubin Ql (U) Negative Negative [facility] Bilirubin.total [Mass/volume ] in Serum or PlasmaOrdered By: Ke Cage on 12-11-2022 Bilirubin [Mass/Vol] 0.6 mg/dL 0.3-1.0 [facility] Calcium [Mass/volume] in Ser um or PlasmaOrdered By: Ke Cage on 12-11-2022 Calcium [Mass/Vol] 9.9 mg/dL 8.6-10.3 [facility] Cannabinoids [Presence] in U rine by Screen methodOrdered By: Ke Cage on 12-11-2022 Cannabinoids Screen Ql (U) Negative Negative [facility] Comment on above: These are unconfirme d results and should not be used for legal purposes. Drug Cut-Off Concentration: AMPH 1000 ng/mL BOO 200 ng/mL HELGA 200 ng/mL COCM 300 ng/mL OP 300 ng/mL PCP 25 ng/mL THC 20 ng/mL Carbon dioxide, total [Moles /volume] in Serum or PlasmaOrdered By: Ke Cage on 12-11-2022 CO2 [Moles/Vol] 24.2 mmol/L 21.0-31.0 [facility] Chloride [Moles/volume] in S mac or PlasmaOrdered By: Ke Cage on 12-11-2022 Chloride [Moles/Vol] 107 mmol/L 98-107 [facility] Cholesterol [Mass/volume] in Serum or PlasmaOrdered By: Eduardo Swain on 12-11-2022 Cholesterol [Mass/Vol] 229 mg/dL 140-200 [facility] Comment on above: Chol less than 200 m g/dl low riskChol 201-239 mg/dl borderline riskChol 240 mg/dl and greater high risk Cholesterol in LDL Calc [Mas s/Vol]Ordered By: Eduardo Swain on 12-11-2022 Cholesterol in LDL [Mass/Vol] 129 mg/dL 0-100 [facility] Comment on above: LDL ATP III CLASSIFI CATIONLDL less than 100 mg/dL OptimalLDL 100-129 mg/dL Near or above optimalLDL 130-159 mg/dL Borderline highLDL 160-189 mg/dL HighLDL greater than 189 mg/dL Very high Cholesterol in VLDL Calc [Ma ss/Vol]Ordered By: Eduardo Swain on 12-11-2022 Cholesterol in VLDL [Mass/Vol] 13 mg/dL [facility] Creatinine [Mass/volume] in Serum or PlasmaOrdered By: Ke Cage on 12-11-2022 Creatinine [Mass/Vol] 0.78 mg/dL 0.60-1.20 [facility] Eosinophils Auto (Bld) [#/Vo l]Ordered By: Ke Cage on 12-11-2022 Eosinophils (Bld) [#/Vol] 0.1 10*3/uL 0.0-0.45 [facility] Eosinophils/100 WBC Auto (Bl d)Ordered By: Ke Cage on 12-11-2022 Eosinophils/100 WBC (Bld) 2.2 % . [facility] Erythrocyte distribution wid th Auto (RBC) [Ratio]Ordered By: Ke Cage on 12-11-2022 Erythrocyte distribution width (RBC) [Ratio] 12.9 % 11.9-15.3 [facility] Ethanol [Mass/volume] in Ser um or PlasmaOrdered By: Ke Cage on 12-11-2022 Ethanol [Mass/Vol] mg/dL [facility] Ethanol [Mass/Vol] TNP [facility] Comment on above: Test not performed Globulin Calc (S) [Mass/Vol] Ordered By: Ke Cage on 12-11-2022 Globulin (S) [Mass/Vol] 2.7 g/dL [facility] Glucose [Mass/volume] in Ser um or PlasmaOrdered By: Ke Cage on 12-11-2022 Glucose [Mass/Vol] 87 mg/dL 70-100 [facility] Comment on above: ADA recommended refe rence rangeRandom Glucose Reference Range is dependent on time and content of last meal. Glucose of more than 200 mg/dL in a nonstressed, ambulatory subject supports the diagnosis of Diabetes Mellitus. HCG ( test) IA.rapi d Ql (U)Ordered By: Ke Cage on 12-11-2022 HCG ( test) Ql (U) Negative [facility] Hematocrit Auto (Bld) [Volum e fraction]Ordered By: Ke Cage on 12-11-2022 Hematocrit (Bld) [Volume fraction] 41.8 % 34.0-46.4 [facility] Hemoglobin [Mass/volume] in BloodOrdered By: Ke Cage on 12-11-2022 Hemoglobin (Bld) [Mass/Vol] 14.2 g/dL 11.8-15.4 [facility] Ketones Auto test strip (U) [Mass/Vol]Ordered By: Ke Cage on 12-11-2022 Ketones (U) [Mass/Vol] Negative Negative [facility] - UrinalysisOrder ed By: Ke Cage on 12-11-2022 Hyaline casts LM Ql (Urine sed) 0-8 [LPF] 0-8 [facility] Leukocytes [#/volume] correc nneka for nucleated erythrocytes in Blood by Automated counOrdered By: Ke Cage on 12-11-2022 WBC corrected for nucl RBC Auto (Bld) [#/Vol] 5.8 10*3/uL 3.8-11.6 [facility] Lymphocytes Auto (Bld) [#/Vo l]Ordered By: Ke Cage on 12-11-2022 Lymphocytes (Bld) [#/Vol] 1.7 10*3/uL 1.00-4.8 [facility] Lymphocytes/100 WBC Auto (Bl d)Ordered By: Ke Cage on 12-11-2022 Lymphocytes/100 WBC (Bld) 28.6 % . [facility] MCH Auto (RBC) [Entitic mass ]Ordered By: Ke Cage on 12-11-2022 MCH (RBC) [Entitic mass] 32.4 pg 24.7-34.3 [facility] MCHC Auto (RBC) [Mass/Vol]Or dered By: Ke Cage on 12-11-2022 MCHC (RBC) [Mass/Vol] 33.9 g/dL 32.0-35.0 [facility] MCV Auto (RBC) [Entitic vol] Ordered By: Ke Cage on 12-11-2022 MCV (RBC) [Entitic vol] 95.4 fL 80-100 [facility] Monocyte distribution width [Entitic volume] in Blood by AutomatedOrdered By: Ke Cage on 12-11-2022 Monocyte distribution width Auto (Bld) [Entitic vol] 17.61 % 0.00-20.00 [facility] Monocytes Auto (Bld) [#/Vol] Ordered By: Ke Cage on 12-11-2022 Monocytes (Bld) [#/Vol] 0.5 10*3/uL 0.0-0.8 [facility] Monocytes/100 WBC Auto (Bld) Ordered By: Ke Cage on 12-11-2022 Monocytes/100 WBC (Bld) 8.1 % . [facility] Neutrophils Auto (Bld) [#/Vo l]Ordered By: Ke Cage on 12-11-2022 Neutrophils (Bld) [#/Vol] 3.5 10*3/uL 1.8-7.7 [facility] Neutrophils/100 WBC Auto (Bl d)Ordered By: Ke Cage on 12-11-2022 Neutrophils/100 WBC (Bld) 60.4 % . [facility] No Panel InformationOrdered By: Ke Cage on 12-11-2022 Estimated GFR (CKD-EPI) > 60.0 mL/Min [facility] Creatinine Clearance (Chem 119.76 [facility] Nucleated erythrocytes [Pres ence] in Blood by Automated countOrdered By: Ke Cage on 12-11-2022 Nucleated RBC Auto Ql (Bld) 0.1 /100{WBC} 0-0.5 [facility] Opiates [Presence] in Urine by Screen methodOrdered By: Ke Cage on 12-11-2022 Opiates Screen Ql (U) Negative Negative [facility] Phencyclidine Screen Ql (U)O rdered By: Ke Cage on 12-11-2022 Phencyclidine Ql (U) Negative Negative [facility] Platelet mean volume Auto (B ld) [Entitic vol]Ordered By: Ke Cage on 12-11-2022 Platelet mean volume (Bld) [Entitic vol] 7.9 fL 6.3-10.7 [facility] Platelets Auto (Bld) [#/Vol] Ordered By: Ke Cage on 12-11-2022 Platelets (Bld) [#/Vol] 185 10*3/uL 150-450 [facility] Potassium [Moles/volume] in Serum or PlasmaOrdered By: Ke Cage on 12-11-2022 Potassium [Moles/Vol] 3.8 mmol/L 3.5-5.1 [facility] Protein Auto test strip (U) [Mass/Vol]Ordered By: Ke Cage on 12-11-2022 Protein (U) [Mass/Vol] Negative Negative [facility] Protein [Mass/volume] in Ser um or PlasmaOrdered By: Ke Cage on 12-11-2022 Protein [Mass/Vol] 7.5 g/dL 6.4-8.9 [facility] RBC Auto (Bld) [#/Vol]Ordere d By: Ke Cage on 12-11-2022 RBC (Bld) [#/Vol] 4.38 10*6/uL 3.60-5.00 [facility] Serum or plasma albumin/glob ulin mass ratioOrdered By: Ke Cage on 12-11-2022 Albumin/Globulin [Mass ratio] 1.8 {ratio} [facility] Serum or plasma anion gap de terminationOrdered By: Ke Cage on 12-11-2022 Anion gap [Moles/Vol] 12.6 mmol/L 6.0-15.0 [facility] Serum or plasma high density lipoprotein (HDL) cholesterol measurementOrdered By: Eduardo Swain on 12-11-2022 Cholesterol in HDL [Mass/Vol] 87 mg/dL 23- [facility] Comment on above: HDL CHOL ATP-III CLA SSIFICATION Cardiovascular RiskHDL > or equal to 60 mg/dL LOWHDL < 40 mg/dL HIGH Serum or plasma total choles terol/high density lipoprotein (HDL) cholesterol mass ratOrdered By: Eduardo Swain on 12-11-2022 Cholesterol.total/Chol esterol in HDL [Mass ratio] 2.6 {ratio} <5.0 [facility] Sodium [Moles/volume] in Ser um or PlasmaOrdered By: Ke Cage on 12-11-2022 Sodium [Moles/Vol] 140 mmol/L 136-145 [facility] Squamous epithelial cells de tection in urine sediment by light microscopyOrdered By: Ke Cage on 12-11-2022 Epithelial cells.squamous LM Ql (Urine sed) 3-4 [HPF] 0-2 [facility] Thyrotropin [Units/volume] i n Serum or PlasmaOrdered By: Eduardo Swain on 12-11-2022 TSH Qn 1.24 m[IU]/L 0.45-5.33 [facility] Triglyceride [Mass/volume] i n Serum or PlasmaOrdered By: Eduardo Swain on 12-11-2022 Triglyceride [Mass/Vol] 66 mg/dL 0-149 [facility] Comment on above: TRIG ATP III CLASSIF ICATIONTRIG less than 150 mg/dL NormalTRIG 150-199 mg/dL Borderline highTRIG 200-500 mg/dL High TRIG greater than 500 mg/dL Very highStandard traceable to the Center for Disease Conrtrol and Prevention (CDC) test method. Urea nitrogen [Mass/volume] in Serum or PlasmaOrdered By: Ke Cage on 12-11-2022 Urea nitrogen [Mass/Vol] 7 mg/dL 7-25 [facility] Urine appearanceOrdered By: Ke Cage on 12-11-2022 Appearance (U) Slightly cloudy Clear [facility] Urine bacteria detection by automated methodOrdered By: Ke Cage on 12-11-2022 Bacteria Auto Ql (U) None seen None Seen [facility] Urine colorOrdered By: Ke Cage on 12-11-2022 Color (U) Yellow Yellow [facility] Urine culture routineOrdered By: Ke Cage on 12-11-2022 Bacteria identified Cx Nom (U) 2 Days [facility] Urine glucose measurement by automated test strip (mass/volume)Ordered By: Ke Cage on 12-11-2022 Glucose Auto test strip (U) [Mass/Vol] Normal mg/dL Normal [facility] Urine hemoglobin detection b y automated test stripOrdered By: Ke Cage on 12-11-2022 Hemoglobin Auto test strip Ql (U) Negative Negative [facility] Urine leukocyte esterase det ection by automated test stripOrdered By: Ke Cage on 12-11-2022 Leukocyte esterase Auto test strip Ql (U) 2+ Negative [facility] Urine nitrite detection by a utomated test stripOrdered By: Ke Cage on 12-11-2022 Nitrite Auto test strip Ql (U) Negative Negative [facility] Urobilinogen Auto test strip (U) [Mass/Vol]Ordered By: Ke Cage on 12-11-2022 Urobilinogen (U) [Mass/Vol] Normal mg/dL Normal [facility] Vitamin D+Metabolites [Mass/ volume] in Serum or PlasmaOrdered By: Eduardo Swain on 12-11-2022 Vitamin D+Metabolites [Mass/Vol] 36.5 ng/mL 30-100 [facility] Comment on above: VITAMIN D STATUS 25( [place])VITAMIN D RANGE (ng/mL) Deficient <20 Insufficient 20 to <30Sufficient 30 to 100Reference: Franklyn MF,Benjamin NC, Andreina MARQUEZ, et al. Evaluation,treatment, and prevention of vitamin D deficiency; an Endocrine Society clinical practice guideline. JCEM. 2010; 96(7):1911-30. WBC Auto (Bld) [#/Vol]Ordere d By: Ke Cage on 12-11-2022 WBC (Bld) [#/Vol] 5.8 10*3/uL 3.8-11.6 [facility] pH Auto test strip (U)Ordere d By: Ke Cage on 12-11-2022 pH (U) 1.015 [pH] 1.001-1.030 [facility] pH (U) 6.0 [pH] 5.0-9.0 [facility] Basophils Auto (Bld) [#/Vol] Ordered By: Afshan Hines on 11-01-2022 Basophils (Bld) [#/Vol] 0.0 10*3/uL 0.0-0.2 [facility] Basophils/100 WBC Auto (Bld) Ordered By: Afshan Hines on 11-01-2022 Basophils/100 WBC (Bld) 0.9 % . [facility] Calcium [Mass/volume] in Ser um or PlasmaOrdered By: Afshan Hines on 11-01-2022 Calcium [Mass/Vol] 8.8 mg/dL 8.6-10.3 [facility] Carbon dioxide, total [Moles /volume] in Serum or PlasmaOrdered By: Afshan Hines on 11-01-2022 CO2 [Moles/Vol] 26.4 mmol/L 21.0-31.0 [facility] Chloride [Moles/volume] in S mac or PlasmaOrdered By: Afshan Hines on 11-01-2022 Chloride [Moles/Vol] 107 mmol/L 98-107 [facility] Creatinine [Mass/volume] in Serum or PlasmaOrdered By: Afshan Hines on 11-01-2022 Creatinine [Mass/Vol] 0.82 mg/dL 0.60-1.20 [facility] Eosinophils Auto (Bld) [#/Vo l]Ordered By: Afshan Hines on 11-01-2022 Eosinophils (Bld) [#/Vol] 0.2 10*3/uL 0.0-0.45 [facility] Eosinophils/100 WBC Auto (Bl d)Ordered By: Afshan Hines on 11-01-2022 Eosinophils/100 WBC (Bld) 4.2 % . [facility] Erythrocyte distribution wid th Auto (RBC) [Ratio]Ordered By: Afshan Hines on 11-01-2022 Erythrocyte distribution width (RBC) [Ratio] 12.9 % 11.9-15.3 [facility] Glucose [Mass/volume] in Ser um or PlasmaOrdered By: Afshan Hines on 11-01-2022 Glucose [Mass/Vol] 74 mg/dL 70-100 [facility] Comment on above: ADA recommended refe rence rangeRandom Glucose Reference Range is dependent on time and content of last meal. Glucose of more than 200 mg/dL in a nonstressed, ambulatory subject supports the diagnosis of Diabetes Mellitus. Hematocrit Auto (Bld) [Volum e fraction]Ordered By: Afshan Hines on 11-01-2022 Hematocrit (Bld) [Volume fraction] 37.5 % 34.0-46.4 [facility] Hemoglobin [Mass/volume] in BloodOrdered By: Afshan Hines on 11-01-2022 Hemoglobin (Bld) [Mass/Vol] 12.5 g/dL 11.8-15.4 [facility] Leukocytes [#/volume] correc nneka for nucleated erythrocytes in Blood by Automated counOrdered By: Afshan Hines on 11-01-2022 WBC corrected for nucl RBC Auto (Bld) [#/Vol] 5.1 10*3/uL 3.8-11.6 [facility] Lymphocytes Auto (Bld) [#/Vo l]Ordered By: Afshan Hines on 11-01-2022 Lymphocytes (Bld) [#/Vol] 1.8 10*3/uL 1.00-4.8 [facility] Lymphocytes/100 WBC Auto (Bl d)Ordered By: Afshan Hines on 11-01-2022 Lymphocytes/100 WBC (Bld) 34.7 % . [facility] MCH Auto (RBC) [Entitic mass ]Ordered By: Afshan Hines on 11-01-2022 MCH (RBC) [Entitic mass] 32.2 pg 24.7-34.3 [facility] MCHC Auto (RBC) [Mass/Vol]Or dered By: Afshan Hines on 11-01-2022 MCHC (RBC) [Mass/Vol] 33.4 g/dL 32.0-35.0 [facility] MCV Auto (RBC) [Entitic vol] Ordered By: Afshan Hines on 11-01-2022 MCV (RBC) [Entitic vol] 96.5 fL 80-100 [facility] Monocytes Auto (Bld) [#/Vol] Ordered By: Afshan Hines on 11-01-2022 Monocytes (Bld) [#/Vol] 0.3 10*3/uL 0.0-0.8 [facility] Monocytes/100 WBC Auto (Bld) Ordered By: Afshan Hines on 11-01-2022 Monocytes/100 WBC (Bld) 6.1 % . [facility] Neutrophils Auto (Bld) [#/Vo l]Ordered By: Afshan Hines on 11-01-2022 Neutrophils (Bld) [#/Vol] 2.8 10*3/uL 1.8-7.7 [facility] Neutrophils/100 WBC Auto (Bl d)Ordered By: Afshan Hines on 11-01-2022 Neutrophils/100 WBC (Bld) 54.1 % . [facility] No Panel InformationOrdered By: Afshan Hines on 11-01-2022 Estimated GFR (CKD-EPI) > 60.0 mL/Min [facility] Creatinine Clearance (Chem 114.96 [facility] Nucleated erythrocytes [Pres ence] in Blood by Automated countOrdered By: Afshan Hines on 11-01-2022 Nucleated RBC Auto Ql (Bld) 0.1 /100{WBC} 0-0.5 [facility] Platelet mean volume Auto (B ld) [Entitic vol]Ordered By: Afshan Hines on 11-01-2022 Platelet mean volume (Bld) [Entitic vol] 7.8 fL 6.3-10.7 [facility] Platelets Auto (Bld) [#/Vol] Ordered By: Afshan Hines on 11-01-2022 Platelets (Bld) [#/Vol] 184 10*3/uL 150-450 [facility] Potassium [Moles/volume] in Serum or PlasmaOrdered By: Afshan Hines on 11-01-2022 Potassium [Moles/Vol] 4.0 mmol/L 3.5-5.1 [facility] RBC Auto (Bld) [#/Vol]Ordere d By: Afshan Hines on 11-01-2022 RBC (Bld) [#/Vol] 3.89 10*6/uL 3.60-5.00 [facility] Serum or plasma anion gap de terminationOrdered By: Afshan Hines on 11-01-2022 Anion gap [Moles/Vol] 10.6 mmol/L 6.0-15.0 [facility] Sodium [Moles/volume] in Ser um or PlasmaOrdered By: Afshan Hines on 11-01-2022 Sodium [Moles/Vol] 140 mmol/L 136-145 [facility] Urea nitrogen [Mass/volume] in Serum or PlasmaOrdered By: Afshan Hines on 11-01-2022 Urea nitrogen [Mass/Vol] 14 mg/dL 7-25 [facility] Vitamin B12 ser/plasOrdered By: Afshan Hines on 11-01-2022 Cobalamin (Vitamin B12) [Mass/Vol] 205 pg/mL 180-914 [facility] WBC Auto (Bld) [#/Vol]Ordere d By: Afshan Hines on 11-01-2022 WBC (Bld) [#/Vol] 5.1 10*3/uL 3.8-11.6 [facility] Alanine aminotransferase [En zymatic activity/volume] in Serum or PlasmaOrdered By: Afshan Hines on 2022 ALT [Catalytic activity/Vol] 10 U/L 7-52 [facility] Albumin [Mass/volume] in Ser um or Plasma by Bromocresol green (BCG) dye binding methoOrdered By: Afshan Hines on 2022 Albumin BCG dye [Mass/Vol] 3.4 g/dL 3.5-5.7 [facility] Alkaline phosphatase [Enzyma tic activity/volume] in Serum or PlasmaOrdered By: Afshan Hines on 2022 ALP [Catalytic activity/Vol] 66 U/L 34-104 [facility] Aspartate aminotransferase [ Enzymatic activity/volume] in Serum or PlasmaOrdered By: Afshan Hines on 2022 AST [Catalytic activity/Vol] 15 U/L 13-39 [facility] Bilirubin.total [Mass/volume ] in Serum or PlasmaOrdered By: Afshan Hines on 2022 Bilirubin [Mass/Vol] 0.7 mg/dL 0.3-1.0 [facility] Globulin Calc (S) [Mass/Vol] Ordered By: Afshan Hines on 2022 Globulin (S) [Mass/Vol] 2.2 g/dL [facility] Protein [Mass/volume] in Ser um or PlasmaOrdered By: Afshan Hines on 2022 Protein [Mass/Vol] 5.6 g/dL 6.4-8.9 [facility] Serum or plasma albumin/glob ulin mass ratioOrdered By: Afshan Hines on 2022 Albumin/Globulin [Mass ratio] 1.5 {ratio} [facility] Cholesterol [Mass/volume] in Serum or PlasmaOrdered By: Nimesh Cerda on 10-29-2022 Cholesterol [Mass/Vol] 181 mg/dL 140-200 [facility] Comment on above: Chol less than 200 m g/dl low riskChol 201-239 mg/dl borderline riskChol 240 mg/dl and greater high risk Cholesterol in LDL Calc [Mas s/Vol]Ordered By: Nimesh Cerda on 10-29-2022 Cholesterol in LDL [Mass/Vol] 99 mg/dL 0-100 [facility] Comment on above: LDL ATP III CLASSIFI CATIONLDL less than 100 mg/dL OptimalLDL 100-129 mg/dL Near or above optimalLDL 130-159 mg/dL Borderline highLDL 160-189 mg/dL HighLDL greater than 189 mg/dL Very high Cholesterol in VLDL Calc [Ma ss/Vol]Ordered By: Nimesh Cerda on 10-29-2022 Cholesterol in VLDL [Mass/Vol] 18 mg/dL [facility] Serum or plasma high density lipoprotein (HDL) cholesterol measurementOrdered By: Nimesh Cerda on 10-29-2022 Cholesterol in HDL [Mass/Vol] 64 mg/dL 35-85 [facility] Comment on above: HDL CHOL ATP-III CLA SSIFICATION Cardiovascular RiskHDL > or equal to 60 mg/dL LOWHDL < 40 mg/dL HIGH Serum or plasma total choles terol/high density lipoprotein (HDL) cholesterol mass ratOrdered By: Nimesh Cerda on 10-29-2022 Cholesterol.total/Chol esterol in HDL [Mass ratio] 2.8 {ratio} <5.0 [facility] Thyrotropin [Units/volume] i n Serum or PlasmaOrdered By: Nimesh Cerda on 10-29-2022 TSH Qn 0.60 m[IU]/L 0.45-5.33 [facility] Triglyceride [Mass/volume] i n Serum or PlasmaOrdered By: Nimesh Cerda on 10-29-2022 Triglyceride [Mass/Vol] 92 mg/dL 0-149 [facility] Comment on above: TRIG ATP III CLASSIF ICATIONTRIG less than 150 mg/dL NormalTRIG 150-199 mg/dL Borderline highTRIG 200-500 mg/dL High TRIG greater than 500 mg/dL Very highStandard traceable to the Center for Disease Conrtrol and Prevention (CDC) test method. Vitamin D+Metabolites [Mass/ volume] in Serum or PlasmaOrdered By: Nimesh Cerda on 10-29-2022 Vitamin D+Metabolites [Mass/Vol] 26.3 ng/mL 30-100 [facility] Comment on above: VITAMIN D STATUS 25( OH)VITAMIN D RANGE (ng/mL) Deficient <20 Insufficient 20 to <30Sufficient 30 to 100Reference: Franklyn MF,Benjamin NC, Andreina MARQUEZ, et al. Evaluation,treatment, and prevention of vitamin D deficiency; an Endocrine Society clinical practice guideline. JCEM. 2010; 96(7):1911-30. Alanine aminotransferase [En zymatic activity/volume] in Serum or PlasmaOrdered By: Keven Florentino on 10-28-2022 ALT [Catalytic activity/Vol] 11 U/L 7-52 [facility] Albumin [Mass/volume] in Ser um or Plasma by Bromocresol green (BCG) dye binding methoOrdered By: Keven Florentino on 10-28-2022 Albumin BCG dye [Mass/Vol] 3.7 g/dL 3.5-5.7 [facility] Alkaline phosphatase [Enzyma tic activity/volume] in Serum or PlasmaOrdered By: Keven Florentino on 10-28-2022 ALP [Catalytic activity/Vol] 74 U/L 34-104 [facility] Amphetamine Screen Ql (U)Ord ered By: Keven Florentino on 10-28-2022 Amphetamines Ql (U) Negative Negative [facility] Aspartate aminotransferase [ Enzymatic activity/volume] in Serum or PlasmaOrdered By: Keven Florentino on 10-28-2022 AST [Catalytic activity/Vol] 15 U/L 13-39 [facility] Automated erythrocytes count in urine sediment (number/area)Ordered By: Keven Florentino on 10-28-2022 RBC Auto (Urine sed) [#/Area] 1-2 [HPF] 0-4 [facility] Automated leukocytes count i n urine sediment (number/area)Ordered By: Keven Florentino on 10-28-2022 WBC Auto (Urine sed) [#/Area] 10-19 [HPF] 0-4 [facility] Barbiturates [Presence] in U rine by Screen methodOrdered By: Keven Florentino on 10-28-2022 Barbiturates Screen Ql (U) Negative Negative [facility] Basophils Auto (Bld) [#/Vol] Ordered By: Keven Florentino on 10-28-2022 Basophils (Bld) [#/Vol] 0.0 10*3/uL 0.0-0.2 [facility] Basophils/100 WBC Auto (Bld) Ordered By: Keven Florentino on 10-28-2022 Basophils/100 WBC (Bld) 0.7 % . [facility] Benzodiazepines Screen Ql (U )Ordered By: Keevn Florentino on 10-28-2022 Benzodiazepines Ql (U) Negative Negative [facility] Benzoylecgonine [Presence] i n Urine by Screen methodOrdered By: Keven Florentino on 10-28-2022 Benzoylecgonine Screen Ql (U) Negative Negative [facility] Bilirubin Test strip Ql (U)O rdered By: Keven Florentino on 10-28-2022 Bilirubin Ql (U) Negative Negative [facility] Bilirubin.total [Mass/volume ] in Serum or PlasmaOrdered By: Keven Florentino on 10-28-2022 Bilirubin [Mass/Vol] 0.5 mg/dL 0.3-1.0 [facility] Calcium [Mass/volume] in Ser um or PlasmaOrdered By: Keven Florentino on 10-28-2022 Calcium [Mass/Vol] 8.5 mg/dL 8.6-10.3 [facility] Cannabinoids [Presence] in U rine by Screen methodOrdered By: Keven Florentino on 10-28-2022 Cannabinoids Screen Ql (U) Negative Negative [facility] Comment on above: These are unconfirme d results and should not be used for legal purposes. Drug Cut-Off Concentration: AMPH 1000 ng/mL BOO 200 ng/mL HELGA 200 ng/mL COCM 300 ng/mL OP 300 ng/mL PCP 25 ng/mL THC 20 ng/mL Carbon dioxide, total [Moles /volume] in Serum or PlasmaOrdered By: Keven Florentino on 10-28-2022 CO2 [Moles/Vol] 24.6 mmol/L 21.0-31.0 [facility] Chloride [Moles/volume] in S mac or PlasmaOrdered By: Keven Florentino on 10-28-2022 Chloride [Moles/Vol] 109 mmol/L 98-107 [facility] Color Auto (U)Ordered By: Anibal red Mishel on 10-28-2022 Color (U) Dark yellow Yellow [facility] Creatinine [Mass/volume] in Serum or PlasmaOrdered By: Keven Florentino on 10-28-2022 Creatinine [Mass/Vol] 0.70 mg/dL 0.60-1.20 [facility] Eosinophils Auto (Bld) [#/Vo l]Ordered By: Keven Florentino on 10-28-2022 Eosinophils (Bld) [#/Vol] 0.2 10*3/uL 0.0-0.45 [facility] Eosinophils/100 WBC Auto (Bl d)Ordered By: Keven Florentino on 10-28-2022 Eosinophils/100 WBC (Bld) 3.9 % . [facility] Erythrocyte distribution wid th Auto (RBC) [Ratio]Ordered By: Keven Florentino on 10-28-2022 Erythrocyte distribution width (RBC) [Ratio] 13.0 % 11.9-15.3 [facility] Ethanol [Mass/volume] in Ser um or PlasmaOrdered By: Keven Florentino on 10-28-2022 Ethanol [Mass/Vol] mg/dL [facility] Ethanol [Mass/Vol] TNP [facility] Comment on above: Test not performed Globulin Calc (S) [Mass/Vol] Ordered By: Keven Florentino on 10-28-2022 Globulin (S) [Mass/Vol] 2.4 g/dL [facility] Glucose [Mass/volume] in Ser um or PlasmaOrdered By: Keven Florentino on 10-28-2022 Glucose [Mass/Vol] 91 mg/dL 70-100 [facility] Comment on above: ADA recommended refe rence rangeRandom Glucose Reference Range is dependent on time and content of last meal. Glucose of more than 200 mg/dL in a nonstressed, ambulatory subject supports the diagnosis of Diabetes Mellitus. HCG ( test) IA.rapi d Ql (U)Ordered By: Keven Florentino on 10-28-2022 HCG ( test) Ql (U) Negative [facility] Hematocrit Auto (Bld) [Volum e fraction]Ordered By: Keven Florentino on 10-28-2022 Hematocrit (Bld) [Volume fraction] 36.0 % 34.0-46.4 [facility] Hemoglobin [Mass/volume] in BloodOrdered By: Keven Florentino on 10-28-2022 Hemoglobin (Bld) [Mass/Vol] 12.1 g/dL 11.8-15.4 [facility] Ketones Auto test strip (U) [Mass/Vol]Ordered By: Keven Florentino on 10-28-2022 Ketones (U) [Mass/Vol] Trace Negative [facility] - UrinalysisOrder ed By: Keven Florentino on 10-28-2022 Hyaline casts LM Ql (Urine sed) 0-8 [LPF] 0-8 [facility] Leukocytes [#/volume] correc nneka for nucleated erythrocytes in Blood by Automated counOrdered By: Keven Florentino on 10-28-2022 WBC corrected for nucl RBC Auto (Bld) [#/Vol] 6.1 10*3/uL 3.8-11.6 [facility] Lymphocytes Auto (Bld) [#/Vo l]Ordered By: Keven Florentino on 10-28-2022 Lymphocytes (Bld) [#/Vol] 1.2 10*3/uL 1.00-4.8 [facility] Lymphocytes/100 WBC Auto (Bl d)Ordered By: Keven Florentino on 10-28-2022 Lymphocytes/100 WBC (Bld) 19.9 % . [facility] MCH Auto (RBC) [Entitic mass ]Ordered By: Keven Florentino on 10-28-2022 MCH (RBC) [Entitic mass] 32.4 pg 24.7-34.3 [facility] MCHC Auto (RBC) [Mass/Vol]Or dered By: Keven Florentino on 10-28-2022 MCHC (RBC) [Mass/Vol] 33.7 g/dL 32.0-35.0 [facility] MCV Auto (RBC) [Entitic vol] Ordered By: Keven Florentino on 10-28-2022 MCV (RBC) [Entitic vol] 96.1 fL 80-100 [facility] Monocyte distribution width [Entitic volume] in Blood by AutomatedOrdered By: Keven Florentino on 10-28-2022 Monocyte distribution width Auto (Bld) [Entitic vol] 17.88 % 0.00-20.00 [facility] Monocytes Auto (Bld) [#/Vol] Ordered By: Keven Florentino on 10-28-2022 Monocytes (Bld) [#/Vol] 0.4 10*3/uL 0.0-0.8 [facility] Monocytes/100 WBC Auto (Bld) Ordered By: Keven Florentino on 10-28-2022 Monocytes/100 WBC (Bld) 6.5 % . [facility] Neutrophils Auto (Bld) [#/Vo l]Ordered By: Keven Florentino on 10-28-2022 Neutrophils (Bld) [#/Vol] 4.2 10*3/uL 1.8-7.7 [facility] Neutrophils/100 WBC Auto (Bl d)Ordered By: Keven Florentino on 10-28-2022 Neutrophils/100 WBC (Bld) 69.0 % . [facility] Nitrite Test strip Ql (U)Ord ered By: Keven Florentino on 10-28-2022 Nitrite Ql (U) Negative Negative [facility] No Panel InformationOrdered By: Keven Florentino on 10-28-2022 Estimated GFR (CKD-EPI) > 60.0 mL/Min [facility] Creatinine Clearance (Chem 136.41 [facility] Nucleated erythrocytes [Pres ence] in Blood by Automated countOrdered By: Keven Florentino on 10-28-2022 Nucleated RBC Auto Ql (Bld) 0.2 /100{WBC} 0-0.5 [facility] Opiates [Presence] in Urine by Screen methodOrdered By: Keven Florentino on 10-28-2022 Opiates Screen Ql (U) Negative Negative [facility] Phencyclidine Screen Ql (U)O rdered By: Keven Florentino on 10-28-2022 Phencyclidine Ql (U) Negative Negative [facility] Platelet mean volume Auto (B ld) [Entitic vol]Ordered By: Keven Florentino on 10-28-2022 Platelet mean volume (Bld) [Entitic vol] 7.5 fL 6.3-10.7 [facility] Platelets Auto (Bld) [#/Vol] Ordered By: Keven Florentino on 10-28-2022 Platelets (Bld) [#/Vol] 177 10*3/uL 150-450 [facility] Potassium [Moles/volume] in Serum or PlasmaOrdered By: Keven Florentino on 10-28-2022 Potassium [Moles/Vol] 3.8 mmol/L 3.5-5.1 [facility] Protein Auto test strip (U) [Mass/Vol]Ordered By: Keven Florentino on 10-28-2022 Protein (U) [Mass/Vol] Negative Negative [facility] Protein [Mass/volume] in Ser um or PlasmaOrdered By: Keven Florentino on 10-28-2022 Protein [Mass/Vol] 6.1 g/dL 6.4-8.9 [facility] RBC Auto (Bld) [#/Vol]Ordere d By: Keven Florentino on 10-28-2022 RBC (Bld) [#/Vol] 3.74 10*6/uL 3.60-5.00 [facility] Serum or plasma albumin/glob ulin mass ratioOrdered By: Keven Florentino on 10-28-2022 Albumin/Globulin [Mass ratio] 1.5 {ratio} [facility] Serum or plasma anion gap de terminationOrdered By: Kveen Florentino on 10-28-2022 Anion gap [Moles/Vol] 11.2 mmol/L 6.0-15.0 [facility] Sodium [Moles/volume] in Ser um or PlasmaOrdered By: Keven Florentino on 10-28-2022 Sodium [Moles/Vol] 141 mmol/L 136-145 [facility] Specific gravity Auto test s trip (U) [Rel density]Ordered By: Keven Florentino on 10-28-2022 Specific gravity (U) [Rel density] 1.024 1.001-1.030 [facility] Squamous epithelial cells de tection in urine sediment by light microscopyOrdered By: Keven Florentino on 10-28-2022 Epithelial cells.squamous LM Ql (Urine sed) 5-9 [HPF] 0-2 [facility] Urea nitrogen [Mass/volume] in Serum or PlasmaOrdered By: Keven Florentino on 10-28-2022 Urea nitrogen [Mass/Vol] 15 mg/dL 7-25 [facility] Urine bacteria detection by automated methodOrdered By: Keven Florentino on 10-28-2022 Bacteria Auto Ql (U) None seen None Seen [facility] Urine clarity by refractomet ry automatedOrdered By: Keven Florentino on 10-28-2022 Clarity Refractometry automated (U) Clear Clear [facility] Urine culture routineOrdered By: Keven Florentino on 10-28-2022 Bacteria identified Cx Nom (U) 2 Days [facility] Urine glucose measurement by automated test strip (mass/volume)Ordered By: Keven Florentino on 10-28-2022 Glucose Auto test strip (U) [Mass/Vol] Normal mg/dL Normal [facility] Urine hemoglobin detection b y automated test stripOrdered By: Keven Florentino on 10-28-2022 Hemoglobin Auto test strip Ql (U) Negative Negative [facility] Urine leukocyte esterase det ection by automated test stripOrdered By: Keven Florentino on 10-28-2022 Leukocyte esterase Auto test strip Ql (U) 3+ Negative [facility] Urobilinogen Auto test strip (U) [Mass/Vol]Ordered By: Keven Florentino on 10-28-2022 Urobilinogen (U) [Mass/Vol] mg/dL Normal [facility] WBC Auto (Bld) [#/Vol]Ordere d By: Keven Florentino on 10-28-2022 WBC (Bld) [#/Vol] 6.1 10*3/uL 3.8-11.6 [facility] pH Auto test strip (U)Ordere d By: Keven Florentino on 10-28-2022 pH (U) 6.0 [pH] 5.0-9.0 [facility] Alanine aminotransferase [En zymatic activity/volume] in Serum or PlasmaOrdered By: Chelsie Cortez on 10-18-2022 ALT [Catalytic activity/Vol] 20 U/L 7-52 [facility] Albumin [Mass/volume] in Ser um or Plasma by Bromocresol green (BCG) dye binding methoOrdered By: Chelsie Cortez on 10-18-2022 Albumin BCG dye [Mass/Vol] 3.9 g/dL 3.5-5.7 [facility] Alkaline phosphatase [Enzyma tic activity/volume] in Serum or PlasmaOrdered By: Chelsie Cortez on 10-18-2022 ALP [Catalytic activity/Vol] 99 U/L 34-104 [facility] Aspartate aminotransferase [ Enzymatic activity/volume] in Serum or PlasmaOrdered By: Chelsie Cortez on 10-18-2022 AST [Catalytic activity/Vol] 20 U/L 13-39 [facility] Automated erythrocytes count in urine sediment (number/area)Ordered By: Chelsie Cortez on 10-18-2022 RBC Auto (Urine sed) [#/Area] 0-1 [HPF] 0-4 [facility] Automated leukocytes count i n urine sediment (number/area)Ordered By: Chelsie Cortez on 10-18-2022 WBC Auto (Urine sed) [#/Area] 20-49 [HPF] 0-4 [facility] Basophils Auto (Bld) [#/Vol] Ordered By: Chelsie Cortez on 10-18-2022 Basophils (Bld) [#/Vol] 0.0 10*3/uL 0.0-0.2 [facility] Basophils/100 WBC Auto (Bld) Ordered By: Chelsie Cortez on 10-18-2022 Basophils/100 WBC (Bld) 0.8 % . [facility] Bilirubin Test strip Ql (U)O rdered By: Chelsie Cortez on 10-18-2022 Bilirubin Ql (U) Negative Negative [facility] Bilirubin.direct [Mass/volum e] in Serum or PlasmaOrdered By: Chelsie Cortez on 10-18-2022 Bilirubin.direct [Mass/Vol] 0.10 mg/dL 0.03-0.18 [facility] Bilirubin.total [Mass/volume ] in Serum or PlasmaOrdered By: Chelsie Cortez on 10-18-2022 Bilirubin [Mass/Vol] 0.6 mg/dL 0.3-1.0 [facility] Calcium [Mass/volume] in Ser um or PlasmaOrdered By: Chelsie Cortez on 10-18-2022 Calcium [Mass/Vol] 8.8 mg/dL 8.6-10.3 [facility] Carbon dioxide, total [Moles /volume] in Serum or PlasmaOrdered By: Chelsie Cortez on 04-29-2023 CO2 [Moles/Vol] 26.5 mmol/L 21.0-31.0 [facility] Chloride [Moles/volume] in S mac or PlasmaOrdered By: Chelsie Cortez on 10-18-2022 Chloride [Moles/Vol] 107 mmol/L 98-107 [facility] Color Auto (U)Ordered By: Jose Cortez on 10-18-2022 Color (U) Yellow Yellow [facility] Creatinine [Mass/volume] in Serum or PlasmaOrdered By: Chelsie Cortez on 10-18-2022 Creatinine [Mass/Vol] 0.83 mg/dL 0.60-1.20 [facility] Eosinophils Auto (Bld) [#/Vo l]Ordered By: Chelsie Cortez on 10-18-2022 Eosinophils (Bld) [#/Vol] 0.1 10*3/uL 0.0-0.45 [facility] Eosinophils/100 WBC Auto (Bl d)Ordered By: Chelsie Cortez on 10-18-2022 Eosinophils/100 WBC (Bld) 1.2 % . [facility] Erythrocyte distribution wid th Auto (RBC) [Ratio]Ordered By: Chelsie Cortez on 10-18-2022 Erythrocyte distribution width (RBC) [Ratio] 13.1 % 11.9-15.3 [facility] Globulin Calc (S) [Mass/Vol] Ordered By: Chelsie Cortez on 10-18-2022 Globulin (S) [Mass/Vol] 2.8 g/dL [facility] Glucose [Mass/volume] in Ser um or PlasmaOrdered By: Chelsie Cortez on 10-18-2022 Glucose [Mass/Vol] 101 mg/dL 70-100 [facility] Comment on above: ADA recommended refe rence rangeRandom Glucose Reference Range is dependent on time and content of last meal. Glucose of more than 200 mg/dL in a nonstressed, ambulatory subject supports the diagnosis of Diabetes Mellitus. HCG ( test) IA.rapi d Ql (U)Ordered By: Chelsie Cortez on 10-18-2022 HCG ( test) Ql (U) Negative [facility] Hematocrit Auto (Bld) [Volum e fraction]Ordered By: Chelsie Cortez on 10-18-2022 Hematocrit (Bld) [Volume fraction] 35.1 % 34.0-46.4 [facility] Hemoglobin [Mass/volume] in BloodOrdered By: Chelsie Cortez on 10-18-2022 Hemoglobin (Bld) [Mass/Vol] 12.0 g/dL 11.8-15.4 [facility] Ketones Auto test strip (U) [Mass/Vol]Ordered By: Chelsie Cortez on 10-18-2022 Ketones (U) [Mass/Vol] Negative Negative [facility] - UrinalysisOrder ed By: Chelsie Cortez on 10-18-2022 Hyaline casts LM Ql (Urine sed) 0-8 [LPF] 0-8 [facility] Leukocytes [#/volume] correc nneka for nucleated erythrocytes in Blood by Automated counOrdered By: Chelsie Cortez on 10-18-2022 WBC corrected for nucl RBC Auto (Bld) [#/Vol] 6.3 10*3/uL 3.8-11.6 [facility] Lipase [Enzymatic activity/v olume] in Serum or PlasmaOrdered By: Chelsie Cortez on 10-18-2022 Lipase [Catalytic activity/Vol] 42.0 U/L 11.0-82.0 [facility] Lymphocytes Auto (Bld) [#/Vo l]Ordered By: Chelsie Cortez on 10-18-2022 Lymphocytes (Bld) [#/Vol] 1.4 10*3/uL 1.00-4.8 [facility] Lymphocytes/100 WBC Auto (Bl d)Ordered By: Chelsie Cortez on 10-18-2022 Lymphocytes/100 WBC (Bld) 22.0 % . [facility] MCH Auto (RBC) [Entitic mass ]Ordered By: Chelsie Cortez on 10-18-2022 MCH (RBC) [Entitic mass] 33.0 pg 24.7-34.3 [facility] MCHC Auto (RBC) [Mass/Vol]Or dered By: Chelsie Cortez on 10-18-2022 MCHC (RBC) [Mass/Vol] 34.2 g/dL 32.0-35.0 [facility] MCV Auto (RBC) [Entitic vol] Ordered By: Chelsie Cortez on 10-18-2022 MCV (RBC) [Entitic vol] 96.5 fL 80-100 [facility] Magnesium [Mass/volume] in S mac or PlasmaOrdered By: Chelsie Cortez on 10-18-2022 Magnesium [Mass/Vol] 2.1 mg/dL 1.9-2.7 [facility] Monocytes Auto (Bld) [#/Vol] Ordered By: Chelsie Cortez on 10-18-2022 Monocytes (Bld) [#/Vol] 0.5 10*3/uL 0.0-0.8 [facility] Monocytes/100 WBC Auto (Bld) Ordered By: Chelsie Cortez on 10-18-2022 Monocytes/100 WBC (Bld) 7.2 % . [facility] Neutrophils Auto (Bld) [#/Vo l]Ordered By: Chelsie Cortez on 10-18-2022 Neutrophils (Bld) [#/Vol] 4.3 10*3/uL 1.8-7.7 [facility] Neutrophils/100 WBC Auto (Bl d)Ordered By: Chelsie Cortez on 10-18-2022 Neutrophils/100 WBC (Bld) 68.8 % . [facility] Nitrite Test strip Ql (U)Ord ered By: Chelsie Cortez on 10-18-2022 Nitrite Ql (U) Negative Negative [facility] No Panel InformationOrdered By: Chelsie Cortez on 10-18-2022 Estimated GFR (CKD-EPI) > 60.0 mL/Min [facility] Creatinine Clearance (Chem 115.47 [facility] Nucleated erythrocytes [Pres ence] in Blood by Automated countOrdered By: Chelsie Cortez on 10-18-2022 Nucleated RBC Auto Ql (Bld) 0.1 /100{WBC} 0-0.5 [facility] Platelet mean volume Auto (B ld) [Entitic vol]Ordered By: Chelsie Cortez on 10-18-2022 Platelet mean volume (Bld) [Entitic vol] 7.6 fL 6.3-10.7 [facility] Platelets Auto (Bld) [#/Vol] Ordered By: Chelsie Cortez on 10-18-2022 Platelets (Bld) [#/Vol] 170 10*3/uL 150-450 [facility] Potassium [Moles/volume] in Serum or PlasmaOrdered By: Chelsie Cortez on 10-18-2022 Potassium [Moles/Vol] 4.2 mmol/L 3.5-5.1 [facility] Protein Auto test strip (U) [Mass/Vol]Ordered By: Chelsie Cortez on 10-18-2022 Protein (U) [Mass/Vol] Negative Negative [facility] Protein [Mass/volume] in Ser um or PlasmaOrdered By: Chelsie Cortez on 10-18-2022 Protein [Mass/Vol] 6.7 g/dL 6.4-8.9 [facility] RBC Auto (Bld) [#/Vol]Ordere d By: Chelsie Cortez on 10-18-2022 RBC (Bld) [#/Vol] 3.64 10*6/uL 3.60-5.00 [facility] Serum or plasma albumin/glob ulin mass ratioOrdered By: Chelsie Cortez on 10-18-2022 Albumin/Globulin [Mass ratio] 1.4 {ratio} [facility] Serum or plasma anion gap de terminationOrdered By: Chelsie Cortez on 10-18-2022 Anion gap [Moles/Vol] 9.7 mmol/L 6.0-15.0 [facility] Serum or plasma non-glucuron idated bilirubin measurement (mass/volume)Ordered By: Chelsie Cortez on 10-18-2022 Bilirubin.indirect [Mass/Vol] 0.5 mg/dL [facility] Sodium [Moles/volume] in Ser um or PlasmaOrdered By: Chelsie Cortez on 10-18-2022 Sodium [Moles/Vol] 139 mmol/L 136-145 [facility] Specific gravity Auto test s trip (U) [Rel density]Ordered By: Chelsie Cortez on 10-18-2022 Specific gravity (U) [Rel density] 1.011 1.001-1.030 [facility] Squamous epithelial cells de tection in urine sediment by light microscopyOrdered By: Chelsie Cortez on 10-18-2022 Epithelial cells.squamous LM Ql (Urine sed) 3-4 [HPF] 0-2 [facility] Urea nitrogen [Mass/volume] in Serum or PlasmaOrdered By: Chelsie Cortez on 10-18-2022 Urea nitrogen [Mass/Vol] 9 mg/dL 7-25 [facility] Urine bacteria detection by automated methodOrdered By: Chelsie Cortez on 10-18-2022 Bacteria Auto Ql (U) None seen None Seen [facility] Urine clarity by refractomet ry automatedOrdered By: Chelsie Cortez on 10-18-2022 Clarity Refractometry automated (U) Clear Clear [facility] Urine culture routineOrdered By: Chelsie Cortez on 10-18-2022 Bacteria identified Cx Nom (U) 2 Days [facility] Urine glucose measurement by automated test strip (mass/volume)Ordered By: Chelsie Cortez on 10-18-2022 Glucose Auto test strip (U) [Mass/Vol] Normal mg/dL Normal [facility] Urine hemoglobin detection b y automated test stripOrdered By: Chelsie Cortez on 10-18-2022 Hemoglobin Auto test strip Ql (U) Negative Negative [facility] Urine leukocyte esterase det ection by automated test stripOrdered By: Chelsie Cortez on 10-18-2022 Leukocyte esterase Auto test strip Ql (U) 3+ Negative [facility] Urobilinogen Auto test strip (U) [Mass/Vol]Ordered By: Chelsie Cortez on 10-18-2022 Urobilinogen (U) [Mass/Vol] Normal mg/dL Normal [facility] WBC Auto (Bld) [#/Vol]Ordere d By: Chelsie Cortez on 10-18-2022 WBC (Bld) [#/Vol] 6.3 10*3/uL 3.8-11.6 [facility] pH Auto test strip (U)Ordere d By: Chelsie Cortez on 10-18-2022 pH (U) 5.5 [pH] 5.0-9.0 [facility] AMYLASEon 10-16-2022 Amylase [Catalytic activity/Vol] 42 U/L Normal 25-115 [facility] Comment on above: Performed By: #### C YOVANI SCHUMACHER AMY #### [facility] [address] [place] [address] Dr. Kinjal Rivers CBC AUTO DIFFon 10-16-2022 BASO # 0.0 103/ul Normal 0.0-0.1 [facility] Comment on above: Performed By: #### C BC #### [facility] [address] [place] [address] Dr. Kinjal Rivers Basophils/100 WBC (Bld) 0.6 % Normal 0.2-2.0 [facility] Comment on above: Performed By: #### C BC #### [facility] [address] [place] [address] Dr. Kinjal Rivers EO # 0.1 103/ul Normal 0.0-0.7 [facility] Comment on above: Performed By: #### C BC #### [facility] [address] [place] [address] Dr. Kinjal Rivers Eosinophils/100 WBC (Bld) 2.1 % Normal 0.9-7.0 [facility] Comment on above: Performed By: #### C BC #### [facility] [address] [place] [address] Dr. Kinjal Rivers Erythrocyte distribution width (RBC) [Ratio] 12.4 % Normal 11.0-15.0 [facility] Comment on above: Performed By: #### C BC #### [facility] [address] [place] [address] Dr. Kinjal Rivers Hematocrit (Bld) [Volume fraction] 38.3 % Normal 36.0-48.0 [facility] Comment on above: Performed By: #### C BC #### [facility] [address] [place] [address] Dr. Kinjal Rivers Hemoglobin (Bld) [Mass/Vol] 12.8 g/dL Normal 12.0-16.0 [facility] Comment on above: Performed By: #### C BC #### [facility] [address] [place] [address] Dr. Kinjal Rivers IG # 0.02 10e3/ul Normal 0.00-0.03 [facility] Comment on above: Performed By: #### C BC #### [facility] [address] [place] [address] Dr. Kinjal Rivers IG % 0.3 % Normal 0.0-0.5 [facility] Comment on above: Performed By: #### C BC #### [facility] [address] [place] [address] Dr. Kinjal Rivers LYMPH # 1.5 103/ul Normal 1.2-3.8 [facility] Comment on above: Performed By: #### C BC #### [facility] [address] [place] [address] Dr. Kinjal Rivers Lymphocytes/100 WBC (Bld) 24.1 % Normal 20.5-60.0 [facility] Comment on above: Performed By: #### C BC #### [facility] [address] [place] [address] Dr. Kinjal Rivers MANUAL DIFF REQ NO Normal [facility] Comment on above: Performed By: #### C BC #### [facility] [address] [place] [address] Dr. Kinjal Rivers MCH (RBC) [Entitic mass] 32.7 pg Normal 26.7-34.0 [facility] Comment on above: Performed By: #### C BC #### [facility] [address] [place] [address] Dr. Kinjal Rivers MCHC (RBC) [Mass/Vol] 33.4 g/dL Normal 29.9-35.2 [facility] Comment on above: Performed By: #### C BC #### [facility] [address] [place] [address] Dr. Kinjal Rivers MCV (RBC) [Entitic vol] 97.7 fL Normal 81.0-99.0 [facility] Comment on above: Performed By: #### C BC #### [facility] [address] [place] [address] Dr. Kinjal Rivers MONO # 0.3 103/ul Normal 0.3-0.8 [facility] Comment on above: Performed By: #### C BC #### [facility] [address] [address] [address] Kinjal Rivers Monocytes/100 WBC (Bld) 5.5 % Normal 1.7-12.0 [facility] Comment on above: Performed By: #### C BC #### [facility] [address] [address] [address] Kinjla Rivers NEUT # 4.2 103/ul Normal 1.4-6.5 [facility] Comment on above: Performed By: #### C BC #### [facility] [address] [place] [address] Dr. Kinjal Rivers Neutrophils/100 WBC (Bld) 67.4 % Normal 43.0-75.0 [facility] Comment on above: Performed By: #### C BC #### [facility] [address] [place] [address] Dr. Kinjal Rivers Platelet mean volume (Bld) [Entitic vol] 9.2 fL Critically low 9.5-13.5 [facility] Comment on above: Performed By: #### C BC #### [facility] [address] [place] [address] Dr. Kinjal Rivers PLT 184 103/ul Normal 150-450 [facility] Comment on above: Performed By: #### C BC #### [facility] [address] [place] [address] Dr. Kinjal Rivers RBC 3.92 106/ul Critically low 4.20-5.40 [facility] Comment on above: Performed By: #### C BC #### [facility] [address] [place] [address] Dr. Kinjal Rivers WBC 6.2 103/ul Normal 4.0-11.0 [facility] Comment on above: Performed By: #### C BC #### [facility] [address] [place] [address] Dr. Kinjal Rivers CULTURE URINEon 10-16-2022 CULTURE URINE Culture Observations : LIGHT GROWTH OF MIXED GENITAL YOGESH. NO POTENTIAL PATHOGENS SEEN. Normal [facility] Comment on above: Performed By: #### U RCX #### [facility] [address] [address] [address] Kinjal Rivers ER URINE PROFILEon 3 Bilirubin Ql (U) Negative Normal NEGATIVE [facility] Comment on above: Performed By: #### U MICRO, ERUR #### [facility] [address] [address] [address] Kinjal Rivers Clarity (U) SL CLOUDY Abnormal CLEAR [facility] Comment on above: Performed By: #### U MICRO, ERUR #### [facility] [address] [place] [address] Dr. Kinjal Rivers Color (U) LT. YELLOW Normal YELLOW [facility] Comment on above: Performed By: #### U MICRO, ERUR #### [facility] [address] [place] [address] Dr. Kinjal Rivers ERUAHD A micrscopic examina tion will be performed if indicated. Normal [facility] Comment on above: Performed By: #### U MICRO, ERUR #### [facility] [address] [place] [address] Dr. Kinjal Rivers Glucose Ql (U) Negative Normal NEGATIVE [facility] Comment on above: Performed By: #### U MICRO, ERUR #### [facility] [address] [address] [address] Kinjal Rivers Hemoglobin Ql (U) Negative Normal NEGATIVE [facility] Comment on above: Performed By: #### U MICRO, ERUR #### [facility] [address] [address] [address] Kinjal Rivers Ketones Ql (U) Negative Normal NEGATIVE [facility] Comment on above: Performed By: #### U MICRO, ERUR #### [facility] [address] [place] [address] Dr. Kinjal Rivers LEUKOCYTES TRACE Abnormal NEGATIVE [facility] Comment on above: Performed By: #### U MICRO, ERUR #### [facility] [address] [place] [address] Dr. Kinjal Rivers Nitrite Ql (U) Negative Normal NEGATIVE [facility] Comment on above: Performed By: #### U MICRO, ERUR #### [facility] [address] [place] [address] Dr. Kinjal Rivers pH (U) 5.0 [pH] Normal 5-9 [facility] Comment on above: Performed By: #### U MICRO, ERUR #### [facility] [address] [place] [address] Dr. Kinjal Rivers SPEC GRAVITY 1.030 Abnormal 1.005-<=1.0 25 [facility] Comment on above: Performed By: #### U MICRO, ERUR #### [facility] [address] [place] [address] Dr. Kinjal Rivers UA PROTEIN Negative Normal NEGATIVE/ TRACE [facility] Comment on above: Performed By: #### U MICRO, ERUR #### [facility] [address] [place] [address] Dr. Kinjal Rivers UR MICRO IND INDICATED Normal [facility] Comment on above: Performed By: #### U MICRO, ERUR #### [facility] [address] [place] [address] Dr. Kinjal Rivers Urobilinogen Qn (U) 1.0 {José'U}/dL Normal 0.2 - 1. 0 [facility] Comment on above: Performed By: #### U MICRO, ERUR #### [facility] [address] [place] [address] Dr. Kinjal Rivers LIPASEon 10-16-2022 Lipase [Catalytic activity/Vol] 133.0 U/L Normal 73.0-393.0 [facility] Comment on above: Performed By: #### C YOVANI SCHUMACHER AMY #### [facility] [address] [place] [address] Dr. Kinjal Rivers PROF 14(COMP METB)on 023 Albumin [Mass/Vol] 3.7 g/dL Normal 3.4-5.0 [facility] Comment on above: Performed By: #### C YOVANI SCHUMACHER GRETTA #### [facility] [address] [address] [address] Kinjal Rivers Albumin/Globulin [Mass ratio] 1.0 {ratio} Normal [facility] Comment on above: Performed By: #### C MP, LIPA, GRETTA #### [facility] [address] [address] [address] Kinjal Rivers ALP [Catalytic activity/Vol] 101 U/L Normal 46-116 [facility] Comment on above: Performed By: #### C MP, LIPA, GRETTA #### [facility] [address] [place] [address] Dr. Kinjal Rivers ALT [Catalytic activity/Vol] 27 U/L Normal 14-59 [facility] Comment on above: Performed By: #### C MP, LIPA, GRETTA #### [facility] [address] [place] [address] Dr. Kinjal Rivers Anion gap [Moles/Vol] 13.4 mmol/L Normal [facility] Comment on above: Performed By: #### C MP, LIPA, GRETTA #### [facility] [address] [place] [address] Dr. Kinjal Rivers AST [Catalytic activity/Vol] 23 U/L Normal 15-37 [facility] Comment on above: Performed By: #### C MP, LIPA, GRETTA #### [facility] [address] [place] [address] Dr. Kinjal Rivers Bilirubin [Mass/Vol] 0.6 mg/dL Normal 0.2-1.0 [facility] Comment on above: Performed By: #### C MP, LIPA, GRETTA #### [facility] [address] [address] [address] Kinjal Rivers Calcium [Mass/Vol] 9.1 mg/dL Normal 8.5-10.1 [facility] Comment on above: Performed By: #### C MP, LIPA, GRETTA #### [facility] [address] [address] [address] Kinjal Rivers Chloride [Moles/Vol] 105 mmol/L Normal 98-107 [facility] Comment on above: Performed By: #### C MP, LIPA, GRETTA #### [facility] [address] [address] [address] Kinjal Rivers CO2 [Moles/Vol] 25.3 mmol/L Normal 21.0-32.0 [facility] Comment on above: Performed By: #### C MP, LIPA, GRETTA #### [facility] [address] [place] [address] Dr. Kinjal Rivers Creatinine [Mass/Vol] 0.96 mg/dL Normal 0.55-1.02 [facility] Comment on above: Performed By: #### C MP, LIPA, GRETTA #### [facility] [address] [place] [address] Dr. Kinjal Rivers EGFR-AF SURINAMESE >60 Normal >=60 [facility] Comment on above: Performed By: #### C MP, LIPA, GRETTA #### [facility] [address] [place] [address] Dr. Kinjal Rivers EGFR-NON AF SURINAMESE >60 Normal >=60 [facility] Comment on above: Performed By: #### C MP, LIPA, GRETTA #### [facility] [address] [place] [address] Dr. Kinjal Rivers Globulin (S) [Mass/Vol] 3.6 g/dL Normal [facility] Comment on above: Performed By: #### C MP, LIPA, GRETTA #### [facility] [address] [place] [address] Dr. Kinjal Rivers Glucose [Mass/Vol] 93 mg/dL Normal 74-106 [facility] Comment on above: Performed By: #### C MP, LIPA, GRETTA #### [facility] [address] [place] [address] Dr. Kinjal Rivers Potassium [Moles/Vol] 3.7 mmol/L Normal 3.5-5.1 [facility] Comment on above: Performed By: #### C MP, LIPA, GRETTA #### [facility] [address] [place] [address] Dr. Kinjal Rivers Protein [Mass/Vol] 7.3 g/dL Normal 6.4-8.2 [facility] Comment on above: Performed By: #### C YOVANI SCHUMACHER AMY #### [facility] [address] [place] [address] Dr. Kinjal Rivers Sodium [Moles/Vol] 140 mmol/L Normal 136-145 [facility] Comment on above: Performed By: #### C YOVANI SCHUMACHER AMY #### [facility] [address] [place] [address] Dr. Kinjal Rivers Urea nitrogen [Mass/Vol] 9.0 mg/dL Normal 7.0-18.0 [facility] Comment on above: Performed By: #### C YOVANI SCHUMACHER AMY #### [facility] [address] [place] [address] Dr. Kinjal Rivers Urea nitrogen/Creatinine [Mass ratio] 9.4 mg/mg Normal [facility] Comment on above: Performed By: #### C YOVANI SCHUMACHER AMY #### [facility] [address] [place] [address] Dr. Kinjal Rivers URINE MICROSCOPIC ONLYon BACTERIA TRACE Abnormal NONE SEEN [facility] Comment on above: Performed By: #### U MICRO, ERUR #### [facility] [address] [place] [address] Dr. Kinjal Rivers Bacteria identified Cx Nom (U) INDICATED Normal [facility] Comment on above: Performed By: #### U MICRO, ERUR #### [facility] [address] [place] [address] Dr. Kinjal Rivers CAST NONE SEEN Normal NONE SEEN [facility] Comment on above: Performed By: #### U MICRO, ERUR #### [facility] [address] [place] [address] Dr. Kinjal Rivers Crystals LM Nom (Urine sed) NONE SEEN Normal NONE SEEN [facility] Comment on above: Performed By: #### U MICRO, ERUR #### [facility] [address] [place] [address] Dr. Kinjal Rivers Epithelial cells LM Ql (Urine sed) FEW Abnormal NONE SEEN /RARE [facility] Comment on above: Performed By: #### U MICRO, ERUR #### [facility] [address] [address] [address] Kinjal Rivers MUCOUS NONE SEEN Normal NONE SEEN [facility] Comment on above: Performed By: #### U MICRO, ERUR #### [facility] [address] [address] [address] Kinjal Rivers RBC NONE SEEN Abnormal 0-2 [facility] Comment on above: Performed By: #### U MICRO, ERUR #### [facility] [address] [address] [address] Kinjal Rivers WBC 2-5 Abnormal NONE SEEN [facility] Comment on above: Performed By: #### U MICRO, ERUR #### [facility] [address] [address] [address] Kinjal Rivers Activated partial thrombopla stin time (aPTT) in platelet poor plasma by coagulation aOrdered By: Michael Cerda on 09-28-2022 aPTT Coag (PPP) [Time] 24.9 s 25.1-36.5 [facility] Automated erythrocytes count in urine sediment (number/area)Ordered By: Michael Cerda on 09-28-2022 RBC Auto (Urine sed) [#/Area] 0-1 [HPF] 0-4 [facility] Automated leukocytes count i n urine sediment (number/area)Ordered By: Michael Cerda on 09-28-2022 WBC Auto (Urine sed) [#/Area] 10-19 [HPF] 0-4 [facility] Basophils Auto (Bld) [#/Vol] Ordered By: Michael Cerda on 09-28-2022 Basophils (Bld) [#/Vol] 0.0 10*3/uL 0.0-0.2 [facility] Basophils/100 WBC Auto (Bld) Ordered By: Michael Cerda on 09-28-2022 Basophils/100 WBC (Bld) 0.5 % . [facility] Bilirubin Test strip Ql (U)O rdered By: Michael Cerda on 09-28-2022 Bilirubin Ql (U) Negative Negative [facility] COVID CepheidOrdered By: Janee Cerda on 09-28-2022 SARS-CoV-2 (COVID-19) Ab IA Ql Negative Negative [facility] Comment on above: This is a duplicate [employer] CoV-2/Flu/RSV Plus RNA by RT-PCR result to be used for statistical tracking purpose only. SARS-CoV-2 (COVID-19) RNA CRISTINA+probe Ql (Unsp spec) [facility] Calcium [Mass/volume] in Ser um or PlasmaOrdered By: Michael Cerda on 09-28-2022 Calcium [Mass/Vol] 9.3 mg/dL 8.6-10.3 [facility] Carbon dioxide, total [Moles /volume] in Serum or PlasmaOrdered By: Michael Cerda on 09-28-2022 CO2 [Moles/Vol] 23.7 mmol/L 21.0-31.0 [facility] Chloride [Moles/volume] in S mac or PlasmaOrdered By: Michael Cerda on 09-28-2022 Chloride [Moles/Vol] 105 mmol/L 98-107 [facility] Color Auto (U)Ordered By: Lorene Cerda on 09-28-2022 Color (U) Yellow Yellow [facility] Creatine kinase [Enzymatic a ctivity/volume] in Serum or PlasmaOrdered By: Michael Cerda on 09-28-2022 CK [Catalytic activity/Vol] 60 U/L 30-223 [facility] Creatinine [Mass/volume] in Serum or PlasmaOrdered By: Michael Cerda on 09-28-2022 Creatinine [Mass/Vol] 0.81 mg/dL 0.60-1.20 [facility] Eosinophils Auto (Bld) [#/Vo l]Ordered By: Michael Cerda on 09-28-2022 Eosinophils (Bld) [#/Vol] 0.0 10*3/uL 0.0-0.45 [facility] Eosinophils/100 WBC Auto (Bl d)Ordered By: Michael Cerda on 09-28-2022 Eosinophils/100 WBC (Bld) 0.2 % . [facility] Erythrocyte distribution wid th Auto (RBC) [Ratio]Ordered By: Michael Cerda on 09-28-2022 Erythrocyte distribution width (RBC) [Ratio] 13.5 % 11.9-15.3 [facility] Glucose [Mass/volume] in Ser um or PlasmaOrdered By: Michael Cerda on 09-28-2022 Glucose [Mass/Vol] 103 mg/dL 70-100 [facility] Comment on above: ADA recommended refe rence rangeRandom Glucose Reference Range is dependent on time and content of last meal. Glucose of more than 200 mg/dL in a nonstressed, ambulatory subject supports the diagnosis of Diabetes Mellitus. Hematocrit Auto (Bld) [Volum e fraction]Ordered By: Michael Cerda on 09-28-2022 Hematocrit (Bld) [Volume fraction] 38.9 % 34.0-46.4 [facility] Hemoglobin [Mass/volume] in BloodOrdered By: Michael Cerda on 09-28-2022 Hemoglobin (Bld) [Mass/Vol] 13.2 g/dL 11.8-15.4 [facility] Ketones Auto test strip (U) [Mass/Vol]Ordered By: Michael Cerda on 09-28-2022 Ketones (U) [Mass/Vol] Negative Negative Fi [facility] - CoagulationOrde red By: Michael Cerda on 09-28-2022 PT Coag (PPP) [Time] 12.0 s 9.0-12.9 [facility] - UrinalysisOrder ed By: Michael Cerda on 09-28-2022 Hyaline casts LM Ql (Urine sed) 0-8 [LPF] 0-8 [facility] Leukocytes [#/volume] correc nneka for nucleated erythrocytes in Blood by Automated counOrdered By: Michael Cerda on 09-28-2022 WBC corrected for nucl RBC Auto (Bld) [#/Vol] 5.1 10*3/uL 3.8-11.6 [facility] Lymphocytes Auto (Bld) [#/Vo l]Ordered By: Michael Cerda on 09-28-2022 Lymphocytes (Bld) [#/Vol] 0.6 10*3/uL 1.00-4.8 [facility] Lymphocytes/100 WBC Auto (Bl d)Ordered By: Michael Cerda on 09-28-2022 Lymphocytes/100 WBC (Bld) 11.0 % . [facility] MCH Auto (RBC) [Entitic mass ]Ordered By: Michael Cerda on 09-28-2022 MCH (RBC) [Entitic mass] 33.0 pg 24.7-34.3 [facility] MCHC Auto (RBC) [Mass/Vol]Or dered By: Michael Cerda on 09-28-2022 MCHC (RBC) [Mass/Vol] 34.0 g/dL 32.0-35.0 [facility] MCV Auto (RBC) [Entitic vol] Ordered By: Michael Cerda on 09-28-2022 MCV (RBC) [Entitic vol] 97.0 fL 80-100 [facility] Monocyte distribution width [Entitic volume] in Blood by AutomatedOrdered By: Michael Cerda on 09-28-2022 Monocyte distribution width Auto (Bld) [Entitic vol] 24.75 % 0.00-20.00 [facility] Comment on above: For adults in ED, MD W > 20.0 may be associated with a higher risk of sepsis during the first 12 hrs of hospital admission Monocytes Auto (Bld) [#/Vol] Ordered By: Michael Cerda on 09-28-2022 Monocytes (Bld) [#/Vol] 0.3 10*3/uL 0.0-0.8 [facility] Monocytes/100 WBC Auto (Bld) Ordered By: Michael Cerda on 09-28-2022 Monocytes/100 WBC (Bld) 5.8 % . [facility] Natriuretic peptide B [Mass/ Vol]Ordered By: Michael Cerda on 09-28-2022 Natriuretic peptide B (Bld) [Mass/Vol] 27.0 pg/mL 5-100 [facility] Neutrophils Auto (Bld) [#/Vo l]Ordered By: Michael Cerda on 09-28-2022 Neutrophils (Bld) [#/Vol] 4.2 10*3/uL 1.8-7.7 [facility] Neutrophils/100 WBC Auto (Bl d)Ordered By: Michael Cerda on 09-28-2022 Neutrophils/100 WBC (Bld) 82.5 % . [facility] Nitrite Test strip Ql (U)Ord ered By: Michael Cerda on 09-28-2022 Nitrite Ql (U) Negative Negative [facility] No Panel InformationOrdered By: Michael Cerda on 09-28-2022 D-Dimer Quantitative (PE/DVT) 560 ng/mL 0-243 [facility] Comment on above: The reference range for D-dimer is <243 ng/mL D-dimer units.D-dimer results must be used in conjunction with a clinicalpretest probability (PTP) assessment model for deep veinthrombosis (DVT) and pulmonary embolism (PE). Results <230ng/mL d-dimer units can be used as a negative predictor inpatients with low or moderate probability for DVT/PE.Results above the exclusion threshold of 230 ng/ml D-dimerunits for DVT/PE may indicate the need for furtherdiagnostic testing.D-Dimer can be increased in hospitalized patients due toco-morbid conditions. Estimated GFR (CKD-EPI) > 60.0 mL/Min [facility] Creatinine Clearance (Chem 119.50 [facility] Nucleated erythrocytes [Pres ence] in Blood by Automated countOrdered By: Michael Cerda on 09-28-2022 Nucleated RBC Auto Ql (Bld) 0.1 /100{WBC} 0-0.5 [facility] Platelet mean volume Auto (B ld) [Entitic vol]Ordered By: Michael Cerda on 09-28-2022 Platelet mean volume (Bld) [Entitic vol] 7.4 fL 6.3-10.7 [facility] Platelet poor plasma interna tional normalized ratio (INR) by coagulation assay (relatOrdered By: Michael Cerda on 09-28-2022 INR Coag (PPP) [Relative time] 1.0 {INR} [facility] Comment on above: INR Therapeutic Rang e A) Pre- and Peroperative OAT started two weeks before surgery. NOT HIP SURGERY: 1.5 - 2.5 HIP SURGERY: 2 - 3B) Primary and secondary prevention of venous THROMBOSIS: 2 - 3C) Active venous thrombosis, pulmonary embolismand prevention of recurrent venous thrombosis: 2 - 3D) Prevention of arterial thromboembolismincluding patients with mechanical heart valves: 3 - 4.5 Platelets Auto (Bld) [#/Vol] Ordered By: Michael Cerda on 09-28-2022 Platelets (Bld) [#/Vol] 197 10*3/uL 150-450 [facility] Potassium [Moles/volume] in Serum or PlasmaOrdered By: Michael Cerda on 09-28-2022 Potassium [Moles/Vol] 3.7 mmol/L 3.5-5.1 [facility] Protein Auto test strip (U) [Mass/Vol]Ordered By: Michael Cerda on 09-28-2022 Protein (U) [Mass/Vol] Negative Negative [facility] RBC Auto (Bld) [#/Vol]Ordere d By: Michael Cerda on 09-28-2022 RBC (Bld) [#/Vol] 4.01 10*6/uL 3.60-5.00 [facility] Serum or plasma anion gap de terminationOrdered By: Michael Cerda on 09-28-2022 Anion gap [Moles/Vol] 13.0 mmol/L 6.0-15.0 [facility] Sodium [Moles/volume] in Ser um or PlasmaOrdered By: Michael Cerda on 09-28-2022 Sodium [Moles/Vol] 138 mmol/L 136-145 [facility] Specific gravity Auto test s trip (U) [Rel density]Ordered By: Michael Cerda on 09-28-2022 Specific gravity (U) [Rel density] 1.015 1.001-1.030 [facility] Squamous epithelial cells de tection in urine sediment by light microscopyOrdered By: Michael Cerda on 09-28-2022 Epithelial cells.squamous LM Ql (Urine sed) 3-4 [HPF] 0-2 [facility] Troponin I.cardiac [Mass/vol ume] in Serum or Plasma by Detection limit <= 0.01 ng/Ordered By: Michael Cerda on 09-28-2022 Troponin I.cardiac DL <= 0.01 ng/mL [Mass/Vol] 5.1 pg/mL 0.0-15.0 [facility] Urea nitrogen [Mass/volume] in Serum or PlasmaOrdered By: Michael Cerda on 09-28-2022 Urea nitrogen [Mass/Vol] 11 mg/dL 7-25 [facility] Urine bacteria detection by automated methodOrdered By: Michael Cerda on 09-28-2022 Bacteria Auto Ql (U) None seen None Seen [facility] Urine clarity by refractomet ry automatedOrdered By: Michael Cerda on 09-28-2022 Clarity Refractometry automated (U) Clear Clear [facility] Urine culture routineOrdered By: Michael Cerda on 09-28-2022 Bacteria identified Cx Nom (U) 2 Days [facility] Urine glucose measurement by automated test strip (mass/volume)Ordered By: Michael Cerda on 09-28-2022 Glucose Auto test strip (U) [Mass/Vol] Normal mg/dL Normal [facility] Urine hemoglobin detection b y automated test stripOrdered By: Michael Cerda on 09-28-2022 Hemoglobin Auto test strip Ql (U) Negative Negative [facility] Urine leukocyte esterase det ection by automated test stripOrdered By: Michael Cerda on 09-28-2022 Leukocyte esterase Auto test strip Ql (U) 3+ Negative [facility] Urobilinogen Auto test strip (U) [Mass/Vol]Ordered By: Michael Cerda on 09-28-2022 Urobilinogen (U) [Mass/Vol] Normal mg/dL Normal [facility] WBC Auto (Bld) [#/Vol]Ordere d By: Michael Cerda on 09-28-2022 WBC (Bld) [#/Vol] 5.1 10*3/uL 3.8-11.6 [facility] pH Auto test strip (U)Ordere d By: Michael Cerda on 09-28-2022 pH (U) 6.5 [pH] 5.0-9.0 [facility] Cholesterol [Mass/volume] in Serum or PlasmaOrdered By: Nimesh Cerda on 09-04-2022 Cholesterol [Mass/Vol] 213 mg/dL 140-200 [facility] Comment on above: Chol less than 200 m g/dl low riskChol 201-239 mg/dl borderline riskChol 240 mg/dl and greater high risk Cholesterol in LDL Calc [Mas s/Vol]Ordered By: Nimesh Cerda on 09-04-2022 Cholesterol in LDL [Mass/Vol] 126 mg/dL 0-100 [facility] Comment on above: LDL ATP III CLASSIFI CATIONLDL less than 100 mg/dL OptimalLDL 100-129 mg/dL Near or above optimalLDL 130-159 mg/dL Borderline highLDL 160-189 mg/dL HighLDL greater than 189 mg/dL Very high Cholesterol in VLDL Calc [Ma ss/Vol]Ordered By: Nimesh Cerda on 09-04-2022 Cholesterol in VLDL [Mass/Vol] 19 mg/dL [facility] Serum or plasma high density lipoprotein (HDL) cholesterol measurementOrdered By: Nimesh Cerda on 09-04-2022 Cholesterol in HDL [Mass/Vol] 67 mg/dL 35-85 [facility] Comment on above: HDL CHOL ATP-III CLA SSIFICATION Cardiovascular RiskHDL > or equal to 60 mg/dL LOWHDL < 40 mg/dL HIGH Serum or plasma total choles terol/high density lipoprotein (HDL) cholesterol mass ratOrdered By: Nimesh Cerda on 09-04-2022 Cholesterol.total/Chol esterol in HDL [Mass ratio] 3.2 {ratio} <5.0 [facility] Thyrotropin [Units/volume] i n Serum or PlasmaOrdered By: Nimesh Cerda on 09-04-2022 TSH Qn 1.74 m[IU]/L 0.45-5.33 [facility] Triglyceride [Mass/volume] i n Serum or PlasmaOrdered By: Nimesh Cerda on 09-04-2022 Triglyceride [Mass/Vol] 98 mg/dL 0-149 [facility] Comment on above: TRIG ATP III CLASSIF ICATIONTRIG less than 150 mg/dL NormalTRIG 150-199 mg/dL Borderline highTRIG 200-500 mg/dL High TRIG greater than 500 mg/dL Very highStandard traceable to the Center for Disease Conrtrol and Prevention (CDC) test method. Vitamin D+Metabolites [Mass/ volume] in Serum or PlasmaOrdered By: Nimesh Cerda on 09-04-2022 Vitamin D+Metabolites [Mass/Vol] 31.0 ng/mL 30-100 [facility] Comment on above: VITAMIN D STATUS 25( OH)VITAMIN D RANGE (ng/mL) Deficient <20 Insufficient 20 to <30Sufficient 30 to 100Reference: Franklyn MF,Benjamin GRAF, Andreina MARQUEZ, et al. Evaluation,treatment, and prevention of vitamin D deficiency; an Endocrine Society clinical practice guideline. JCEM. 2010; 96(7):1911-30. Alanine aminotransferase [En zymatic activity/volume] in Serum or PlasmaOrdered By: Raffaele Ellsworth on 09-03-2022 ALT [Catalytic activity/Vol] 26 U/L 7-52 [facility] Albumin [Mass/volume] in Ser um or Plasma by Bromocresol green (BCG) dye binding methoOrdered By: Raffaele Ellsworth on 09-03-2022 Albumin BCG dye [Mass/Vol] 4.1 g/dL 3.5-5.7 [facility] Alkaline phosphatase [Enzyma tic activity/volume] in Serum or PlasmaOrdered By: Raffaele Ellsworth on 09-03-2022 ALP [Catalytic activity/Vol] 77 U/L 34-104 [facility] Amphetamine Screen Ql (U)Ord ered By: Raffaele Ellsworth on 09-03-2022 Amphetamines Ql (U) Negative Negative [facility] Aspartate aminotransferase [ Enzymatic activity/volume] in Serum or PlasmaOrdered By: Raffaele Ellsworth on 09-03-2022 AST [Catalytic activity/Vol] 29 U/L 13-39 [facility] Automated erythrocytes count in urine sediment (number/area)Ordered By: Raffaele Ellsworth on 09-03-2022 RBC Auto (Urine sed) [#/Area] 5-9 [HPF] 0-4 [facility] Automated leukocytes count i n urine sediment (number/area)Ordered By: Raffaele Ellsworth on 09-03-2022 WBC Auto (Urine sed) [#/Area] 10-19 [HPF] 0-4 [facility] Barbiturates [Presence] in U rine by Screen methodOrdered By: Raffaele Ellsworth on 09-03-2022 Barbiturates Screen Ql (U) Negative Negative [facility] Basophils Auto (Bld) [#/Vol] Ordered By: Raffaele Ellsworth on 09-03-2022 Basophils (Bld) [#/Vol] 0.0 10*3/uL 0.0-0.2 [facility] Basophils/100 WBC Auto (Bld) Ordered By: Raffaele Ellsworth on 09-03-2022 Basophils/100 WBC (Bld) 0.6 % . [facility] Benzodiazepines Screen Ql (U )Ordered By: Raffaele Ellsworth on 09-03-2022 Benzodiazepines Ql (U) Negative Negative [facility] Benzoylecgonine [Presence] i n Urine by Screen methodOrdered By: Raffaele Ellsworth on 09-03-2022 Benzoylecgonine Screen Ql (U) Negative Negative [facility] Bilirubin Test strip Ql (U)O rdered By: Raffaele Ellsworth on 09-03-2022 Bilirubin Ql (U) Negative Negative [facility] Bilirubin.total [Mass/volume ] in Serum or PlasmaOrdered By: Raffaele Ellsworth on 09-03-2022 Bilirubin [Mass/Vol] 0.4 mg/dL 0.3-1.0 [facility] Calcium [Mass/volume] in Ser um or PlasmaOrdered By: Raffaele Ellsworth on 09-03-2022 Calcium [Mass/Vol] 9.6 mg/dL 8.6-10.3 [facility] Cannabinoids [Presence] in U rine by Screen methodOrdered By: Raffaele Ellsworth on 09-03-2022 Cannabinoids Screen Ql (U) Negative Negative [facility] Comment on above: These are unconfirme d results and should not be used for legal purposes. Drug Cut-Off Concentration: AMPH 1000 ng/mL BOO 200 ng/mL HELGA 200 ng/mL COCM 300 ng/mL OP 300 ng/mL PCP 25 ng/mL THC 20 ng/mL Carbon dioxide, total [Moles /volume] in Serum or PlasmaOrdered By: Raffaele Ellsworth on 09-03-2022 CO2 [Moles/Vol] 23.8 mmol/L 21.0-31.0 [facility] Chloride [Moles/volume] in S mac or PlasmaOrdered By: Raffaele Ellsworth on 09-03-2022 Chloride [Moles/Vol] 107 mmol/L 98-107 [facility] Color Auto (U)Ordered By: Kapil Ellsworth on 09-03-2022 Color (U) Yellow Yellow [facility] Creatinine [Mass/volume] in Serum or PlasmaOrdered By: Raffaele Ellsworth on 09-03-2022 Creatinine [Mass/Vol] 0.76 mg/dL 0.60-1.20 [facility] Eosinophils Auto (Bld) [#/Vo l]Ordered By: Raffaele Ellsworth on 09-03-2022 Eosinophils (Bld) [#/Vol] 0.1 10*3/uL 0.0-0.45 [facility] Eosinophils/100 WBC Auto (Bl d)Ordered By: Raffaele Ellsworth on 09-03-2022 Eosinophils/100 WBC (Bld) 2.0 % . [facility] Erythrocyte distribution wid th Auto (RBC) [Ratio]Ordered By: Raffaele Ellsworth on 09-03-2022 Erythrocyte distribution width (RBC) [Ratio] 14.8 % 11.9-15.3 [facility] Ethanol [Mass/volume] in Ser um or PlasmaOrdered By: Raffaele Ellsworth on 09-03-2022 Ethanol [Mass/Vol] mg/dL [facility] Ethanol [Mass/Vol] TNP [facility] Comment on above: Test not performed Globulin Calc (S) [Mass/Vol] Ordered By: Raffaele Ellsworth on 09-03-2022 Globulin (S) [Mass/Vol] 2.9 g/dL [facility] Glucose [Mass/volume] in Ser um or PlasmaOrdered By: Raffaele Ellsworth on 09-03-2022 Glucose [Mass/Vol] 79 mg/dL 74-109 [facility] Comment on above: ADA recommended refe rence rangeRandom Glucose Reference Range is dependent on time and content of last meal. Glucose of more than 200 mg/dL in a nonstressed, ambulatory subject supports the diagnosis of Diabetes Mellitus. Hematocrit Auto (Bld) [Volum e fraction]Ordered By: Raffaele Ellsworth on 09-03-2022 Hematocrit (Bld) [Volume fraction] 38.3 % 34.0-46.4 [facility] Hemoglobin [Mass/volume] in BloodOrdered By: Raffaele Ellsworth on 09-03-2022 Hemoglobin (Bld) [Mass/Vol] 12.8 g/dL 11.8-15.4 [facility] Ketones Auto test strip (U) [Mass/Vol]Ordered By: Raffaele Ellsworth on 09-03-2022 Ketones (U) [Mass/Vol] Trace Negative [facility] - Chemistry and C hemistry - challengeOrdered By: Raffaele Ellsworth on 09-03-2022 GFR/1.73 sq M.predicted MDRD (S/P/Bld) [Vol rate/Area] mL/min/{1.73_m2} [facility] - UrinalysisOrder ed By: Raffaele Ellsworth on 09-03-2022 Hyaline casts LM Ql (Urine sed) 0-8 [LPF] 0-8 [facility] Leukocytes [#/volume] correc nneka for nucleated erythrocytes in Blood by Automated counOrdered By: Raffaele Ellsworth on 09-03-2022 WBC corrected for nucl RBC Auto (Bld) [#/Vol] 6.5 10*3/uL 3.8-11.6 [facility] Lymphocytes Auto (Bld) [#/Vo l]Ordered By: Raffaele Ellsworth on 09-03-2022 Lymphocytes (Bld) [#/Vol] 1.8 10*3/uL 1.00-4.8 [facility] Lymphocytes/100 WBC Auto (Bl d)Ordered By: Raffaele Ellsworth on 09-03-2022 Lymphocytes/100 WBC (Bld) 28.2 % . [facility] MCH Auto (RBC) [Entitic mass ]Ordered By: Raffaele Ellsworth on 09-03-2022 MCH (RBC) [Entitic mass] 32.7 pg 24.7-34.3 [facility] MCHC Auto (RBC) [Mass/Vol]Or dered By: Raffaele Ellsworth on 09-03-2022 MCHC (RBC) [Mass/Vol] 33.4 g/dL 32.0-35.0 [facility] MCV Auto (RBC) [Entitic vol] Ordered By: Raffaele Ellsworth on 09-03-2022 MCV (RBC) [Entitic vol] 97.9 fL 80-100 [facility] Monocyte distribution width [Entitic volume] in Blood by AutomatedOrdered By: Raffaele Ellsworth on 09-03-2022 Monocyte distribution width Auto (Bld) [Entitic vol] 18.00 % 0.00-20.00 [facility] Monocytes Auto (Bld) [#/Vol] Ordered By: Raffaele Ellsworth on 09-03-2022 Monocytes (Bld) [#/Vol] 0.5 10*3/uL 0.0-0.8 [facility] Monocytes/100 WBC Auto (Bld) Ordered By: Raffaele Ellsworth on 09-03-2022 Monocytes/100 WBC (Bld) 7.1 % . [facility] Neutrophils Auto (Bld) [#/Vo l]Ordered By: Raffaele Ellsworth on 09-03-2022 Neutrophils (Bld) [#/Vol] 4.0 10*3/uL 1.8-7.7 [facility] Neutrophils/100 WBC Auto (Bl d)Ordered By: Raffaele Ellsworth on 09-03-2022 Neutrophils/100 WBC (Bld) 62.1 % . [facility] Nitrite Test strip Ql (U)Ord ered By: Raffaele Ellsworth on 09-03-2022 Nitrite Ql (U) Negative Negative [facility] No Panel InformationOrdered By: Raffaele Ellsworth on 09-03-2022 Pharmacy Creatinine Clearance (Chem 126.74 [facility] Nucleated erythrocytes [Pres ence] in Blood by Automated countOrdered By: Raffaele Ellsworth on 09-03-2022 Nucleated RBC Auto Ql (Bld) 0.0 /100{WBC} 0-0.5 [facility] Opiates [Presence] in Urine by Screen methodOrdered By: Raffaele Ellsworth on 09-03-2022 Opiates Screen Ql (U) Negative Negative [facility] Phencyclidine Screen Ql (U)O rdered By: Raffaele Ellsworth on 09-03-2022 Phencyclidine Ql (U) Negative Negative [facility] Platelet mean volume Auto (B ld) [Entitic vol]Ordered By: Raffaele Ellsworth on 09-03-2022 Platelet mean volume (Bld) [Entitic vol] 7.2 fL 6.3-10.7 [facility] Platelets Auto (Bld) [#/Vol] Ordered By: Raffaele Ellsworth on 09-03-2022 Platelets (Bld) [#/Vol] 241 10*3/uL 150-450 [facility] Potassium [Moles/volume] in Serum or PlasmaOrdered By: Raffaele Ellsworth on 09-03-2022 Potassium [Moles/Vol] 4.0 mmol/L 3.5-5.1 [facility] Protein Auto test strip (U) [Mass/Vol]Ordered By: Raffaele Ellsworth on 09-03-2022 Protein (U) [Mass/Vol] Negative Negative [facility] Protein [Mass/volume] in Ser um or PlasmaOrdered By: Raffaele Ellsworth on 09-03-2022 Protein [Mass/Vol] 7.0 g/dL 6.4-8.9 [facility] RBC Auto (Bld) [#/Vol]Ordere d By: Raffaele Ellsworth on 09-03-2022 RBC (Bld) [#/Vol] 3.91 10*6/uL 3.60-5.00 [facility] Serum or plasma albumin/glob ulin mass ratioOrdered By: Raffaele Ellsworth on 09-03-2022 Albumin/Globulin [Mass ratio] 1.4 {ratio} [facility] Serum or plasma anion gap de terminationOrdered By: Raffaele Ellsworth on 09-03-2022 Anion gap [Moles/Vol] 12.2 mmol/L 6.0-15.0 [facility] Sodium [Moles/volume] in Ser um or PlasmaOrdered By: Raffaele Ellsworth on 09-03-2022 Sodium [Moles/Vol] 139 mmol/L 136-145 [facility] Specific gravity Auto test s trip (U) [Rel density]Ordered By: Raffaele Ellsworth on 09-03-2022 Specific gravity (U) [Rel density] 1.020 1.001-1.030 [facility] Squamous epithelial cells de tection in urine sediment by light microscopyOrdered By: Raffaele Ellsworth on 09-03-2022 Epithelial cells.squamous LM Ql (Urine sed) 5-9 [HPF] 0-2 [facility] Urea nitrogen [Mass/volume] in Serum or PlasmaOrdered By: Raffaele Ellsworth on 09-03-2022 Urea nitrogen [Mass/Vol] 9 mg/dL 7-25 [facility] Urine bacteria detection by automated methodOrdered By: Raffaele Ellsworth on 09-03-2022 Bacteria Auto Ql (U) None seen None Seen [facility] Urine clarity by refractomet ry automatedOrdered By: Raffaele Ellsworth on 09-03-2022 Clarity Refractometry automated (U) Clear Clear [facility] Urine culture routineOrdered By: Raffaele Ellsworth on 09-03-2022 Bacteria identified Cx Nom (U) 2 Days [facility] Urine glucose measurement by automated test strip (mass/volume)Ordered By: Raffaele Ellsworth on 09-03-2022 Glucose Auto test strip (U) [Mass/Vol] Normal mg/dL Normal [facility] Urine hemoglobin detection b y automated test stripOrdered By: Raffaele Ellsworth on 09-03-2022 Hemoglobin Auto test strip Ql (U) Trace Negative [facility] Urine leukocyte esterase det ection by automated test stripOrdered By: Raffaele Ellsworth on 09-03-2022 Leukocyte esterase Auto test strip Ql (U) 2+ Negative [facility] Urobilinogen Auto test strip (U) [Mass/Vol]Ordered By: Raffaele Ellsworth on 09-03-2022 Urobilinogen (U) [Mass/Vol] Normal mg/dL Normal [facility] WBC Auto (Bld) [#/Vol]Ordere d By: Raffaele Ellsworth on 09-03-2022 WBC (Bld) [#/Vol] 6.5 10*3/uL 3.8-11.6 [facility] pH Auto test strip (U)Ordere d By: Raffaele Ellsworth on 09-03-2022 pH (U) 5.0 [pH] 5.0-9.0 [facility] Basophils Auto (Bld) [#/Vol] Ordered By: Urbano Palma on 08-13-2022 Basophils (Bld) [#/Vol] 0.0 10*3/uL 0.0-0.2 [facility] Basophils/100 WBC Auto (Bld) Ordered By: Urbano Palma on 08-13-2022 Basophils/100 WBC (Bld) 0.3 % . [facility] Eosinophils Auto (Bld) [#/Vo l]Ordered By: Urbano Palma on 08-13-2022 Eosinophils (Bld) [#/Vol] 0.0 10*3/uL 0.0-0.45 [facility] Eosinophils/100 WBC Auto (Bl d)Ordered By: Urbano Palma on 08-13-2022 Eosinophils/100 WBC (Bld) 0.4 % . [facility] Erythrocyte distribution wid th Auto (RBC) [Ratio]Ordered By: Urbano Palma on 08-13-2022 Erythrocyte distribution width (RBC) [Ratio] 17.2 % 11.9-15.3 [facility] Hematocrit Auto (Bld) [Volum e fraction]Ordered By: Urbano Palma on 08-13-2022 Hematocrit (Bld) [Volume fraction] 30.3 % 34.0-46.4 [facility] Hemoglobin [Mass/volume] in BloodOrdered By: Urbano Palma on 08-13-2022 Hemoglobin (Bld) [Mass/Vol] 10.2 g/dL 11.8-15.4 [facility] Leukocytes [#/volume] correc nneka for nucleated erythrocytes in Blood by Automated counOrdered By: Urbano Palma on 08-13-2022 WBC corrected for nucl RBC Auto (Bld) [#/Vol] 10.0 10*3/uL 3.8-11.6 [facility] Lymphocytes Auto (Bld) [#/Vo l]Ordered By: Urbano Palma on 08-13-2022 Lymphocytes (Bld) [#/Vol] 1.7 10*3/uL 1.00-4.8 [facility] Lymphocytes/100 WBC Auto (Bl d)Ordered By: Urbano Palma on 08-13-2022 Lymphocytes/100 WBC (Bld) 16.5 % . [facility] MCH Auto (RBC) [Entitic mass ]Ordered By: Urbano Palma on 08-13-2022 MCH (RBC) [Entitic mass] 32.9 pg 24.7-34.3 [facility] MCHC Auto (RBC) [Mass/Vol]Or dered By: Urbano Palma on 08-13-2022 MCHC (RBC) [Mass/Vol] 33.6 g/dL 32.0-35.0 [facility] MCV Auto (RBC) [Entitic vol] Ordered By: Urbano Palma on 08-13-2022 MCV (RBC) [Entitic vol] 97.8 fL 80-100 [facility] Monocytes Auto (Bld) [#/Vol] Ordered By: Urbano Palma on 08-13-2022 Monocytes (Bld) [#/Vol] 0.5 10*3/uL 0.0-0.8 [facility] Monocytes/100 WBC Auto (Bld) Ordered By: Urbano Palma on 08-13-2022 Monocytes/100 WBC (Bld) 5.4 % . [facility] Neutrophils Auto (Bld) [#/Vo l]Ordered By: Urbano Palma on 08-13-2022 Neutrophils (Bld) [#/Vol] 7.7 10*3/uL 1.8-7.7 [facility] Neutrophils/100 WBC Auto (Bl d)Ordered By: Urbano Palma on 08-13-2022 Neutrophils/100 WBC (Bld) 77.4 % . [facility] Nucleated erythrocytes [Pres ence] in Blood by Automated countOrdered By: Urbano Palma on 08-13-2022 Nucleated RBC Auto Ql (Bld) 0.0 /100{WBC} 0-0.5 [facility] Platelet mean volume Auto (B ld) [Entitic vol]Ordered By: Urbano Palma on 08-13-2022 Platelet mean volume (Bld) [Entitic vol] 8.2 fL 6.3-10.7 [facility] Platelets Auto (Bld) [#/Vol] Ordered By: Urbano Palma on 08-13-2022 Platelets (Bld) [#/Vol] 125 10*3/uL 150-450 [facility] RBC Auto (Bld) [#/Vol]Ordere d By: Urbano Palma on 08-13-2022 RBC (Bld) [#/Vol] 3.10 10*6/uL 3.60-5.00 [facility] WBC Auto (Bld) [#/Vol]Ordere d By: Urbano Palma on 08-13-2022 WBC (Bld) [#/Vol] 10.0 10*3/uL 3.8-11.6 [facility] Glucose Glucometer (dC) [M ass/Vol]Ordered By: Urbano Palma on 08-12-2022 Glucose [Mass/Vol] 82 mg/dL [facility] Comment on above: Random Glucose Refer ence Range is dependent on time and content of last meal. Glucose of more than 200 mg/dL in a nonstressed, ambulatory subject supports the diagnosis of Diabetes Mellitus. No Panel InformationOrdered By: Urbano Palma on 08-12-2022 Bedside Glucose Comment Glu2: cleaned meter [facility] Amphetamine Screen Ql (U)Ord ered By: Urbano Palma on 08-11-2022 Amphetamines Ql (U) Negative Negative [facility] Automated erythrocytes count in urine sediment (number/area)Ordered By: Urbano Palma on 08-11-2022 RBC Auto (Urine sed) [#/Area] 0-1 [HPF] 0-4 [facility] Automated leukocytes count i n urine sediment (number/area)Ordered By: Urbano Palma on 08-11-2022 WBC Auto (Urine sed) [#/Area] 50-100 [HPF] 0-4 [facility] Automated urine hyaline cast s count (number/volume)Ordered By: Urbano Palma on 08-11-2022 Hyaline casts Auto (U) [#/Vol] None seen [LPF] 0-1 [facility] Barbiturates [Presence] in U rineOrdered By: Urbano Palma on 08-11-2022 Barbiturates Ql (U) Negative Negative [facility] Benzodiazepines [Presence] i n UrineOrdered By: Urbano Palma on 08-11-2022 Benzodiazepines Ql (U) Negative Negative [facility] Bilirubin Test strip Ql (U)O rdered By: Urbano Palma on 08-11-2022 Bilirubin Ql (U) Negative Negative [facility] Casts typing in urine sedime nt by light microscopyOrdered By: Urbano Palma on 08-11-2022 Casts LM Nom (Urine sed) None seen [LPF] None Seen [facility] Color Auto (U)Ordered By: Mago Palma on 08-11-2022 Color (U) Yellow Yellow [facility] Glucose [Mass/volume] in Ser um or PlasmaOrdered By: Urbano Palma on 08-11-2022 Glucose [Mass/Vol] 69 mg/dL 70-100 [facility] Comment on above: ADA recommended refe rence rangeRandom Glucose Reference Range is dependent on time and content of last meal. Glucose of more than 200 mg/dL in a nonstressed, ambulatory subject supports the diagnosis of Diabetes Mellitus. Ketones Auto test strip (U) [Mass/Vol]Ordered By: Urbano Palma on 08-11-2022 Ketones (U) [Mass/Vol] Trace Negative [facility] - Drug toxicology Ordered By: Urbano Palma on 08-11-2022 Opiates Ql (U) Negative Negative [facility] Nitrite Test strip Ql (U)Ord ered By: Urbano Palma on 08-11-2022 Nitrite Ql (U) Negative Negative [facility] Phencyclidine Screen Ql (U)O rdered By: Urbano Palma on 08-11-2022 Phencyclidine Ql (U) Negative Negative [facility] Comment on above: These are unconfirme d results and should not be used for legal purposes. Drug Cut-Off Concentration: AMPH 1000 ng/mL BOO 200 ng/mL HELGA 200 ng/mL COCM 300 ng/mL OP 300 ng/mL PCP 25 ng/mL Protein Auto test strip (U) [Mass/Vol]Ordered By: Urbano Palma on 08-11-2022 Protein (U) [Mass/Vol] 30 mg/dL Negative [facility] Reagin Ab [Presence] in Seru m by RPROrdered By: Urbano Palma on 08-11-2022 Reagin Ab RPR Ql (S) Non-Reactive Non Reactive [facility] Comment on above: Performed at: [address] [id number] Director: Prabhakar Warren PhD, Phone: [phone] Specific gravity Auto test s trip (U) [Rel density]Ordered By: Urbano Palma on 08-11-2022 Specific gravity (U) [Rel density] 1.021 1.001-1.030 [facility] Squamous epithelial cells de tection in urine sediment by light microscopyOrdered By: Urbano Palma on 08-11-2022 Epithelial cells.squamous LM Ql (Urine sed) 5-9 [HPF] 0-2 [facility] Urine bacteria detection by automated methodOrdered By: Urbano Palma on 08-11-2022 Bacteria Auto Ql (U) 1+ None Seen [facility] Urine clarity by refractomet ry automatedOrdered By: Urbano Palma on 08-11-2022 Clarity Refractometry automated (U) Cloudy Clear [facility] Urine cocaine detectionOrder ed By: Urbano Palma on 08-11-2022 Cocaine Ql (U) Negative Negative [facility] Urine culture routineOrdered By: Urbano Palma on 08-11-2022 Bacteria identified Cx Nom (U) Cinthya albicans [facility] Urine glucose measurement by automated test strip (mass/volume)Ordered By: Urbano Palma on 08-11-2022 Glucose Auto test strip (U) [Mass/Vol] Normal mg/dL Normal [facility] Urine hemoglobin detection b y automated test stripOrdered By: Urbano Palma on 08-11-2022 Hemoglobin Auto test strip Ql (U) Negative Negative [facility] Urine leukocyte esterase det ection by automated test stripOrdered By: Urbano Palma on 08-11-2022 Leukocyte esterase Auto test strip Ql (U) 3+ Negative [facility] Urobilinogen Auto test strip (U) [Mass/Vol]Ordered By: Urbano Palma on 08-11-2022 Urobilinogen (U) [Mass/Vol] Normal mg/dL Normal [facility] pH Auto test strip (U)Ordere d By: Urbano Palma on 08-11-2022 pH (U) 5.5 [pH] 5.0-9.0 [facility] Albumin [Mass/volume] in Ser um or PlasmaOrdered By: CANDICE Cody on 08-02-2022 Albumin [Mass/Vol] 2.7 g/dL 3.2-5.5 [facility] Basophils Auto (Bld) [#/Vol] Ordered By: CANDICE Cody on 08-02-2022 Basophils (Bld) [#/Vol] 0.0 10*3/uL 0.0-0.2 [facility] Basophils/100 WBC Auto (Bld) Ordered By: CANDICE Cody on 08-02-2022 Basophils/100 WBC (Bld) 0.3 % . [facility] Creatinine and Glomerular fi ltration rate.predicted panel (S/P/Bld)Ordered By: CANDICE Cody on 08-02-2022 Creatinine [Mass/Vol] 0.64 mg/dL 0.44-1.03 [facility] Eosinophils Auto (Bld) [#/Vo l]Ordered By: CANDICE Cody on 08-02-2022 Eosinophils (Bld) [#/Vol] 0.1 10*3/uL 0.0-0.45 [facility] Eosinophils/100 WBC Auto (Bl d)Ordered By: CANDICE Cody on 08-02-2022 Eosinophils/100 WBC (Bld) 0.8 % . [facility] Erythrocyte distribution wid th Auto (RBC) [Ratio]Ordered By: CANDICE Cody on 08-02-2022 Erythrocyte distribution width (RBC) [Ratio] 17.8 % 11.9-15.3 [facility] Estimated glomerular filtrat ion rate (GFR) non- AmericanOrdered By: JASON Cody on 08-02-2022 GFR/1.73 sq M.predicted among non-blacks MDRD (S/P/Bld) [Vol rate/Area] > 60 mL/Min [facility] Globulin Calc (S) [Mass/Vol] Ordered By: CANDICE Cody on 08-02-2022 Globulin (S) [Mass/Vol] 3.1 g/dL [facility] Hematocrit Auto (Bld) [Volum e fraction]Ordered By: CANDICE Cody on 08-02-2022 Hematocrit (Bld) [Volume fraction] 34.8 % 34.0-46.4 [facility] Hemoglobin [Mass/volume] in BloodOrdered By: CANDICE Cody on 08-02-2022 Hemoglobin (Bld) [Mass/Vol] 11.5 g/dL 11.8-15.4 [facility] Leukocytes [#/volume] correc nneka for nucleated erythrocytes in Blood by Automated counOrdered By: CANDICE Cody on 08-02-2022 WBC corrected for nucl RBC Auto (Bld) [#/Vol] 9.1 10*3/uL 3.8-11.6 [facility] Lymphocytes Auto (Bld) [#/Vo l]Ordered By: CANDICE Cody on 08-02-2022 Lymphocytes (Bld) [#/Vol] 1.6 10*3/uL 1.00-4.8 [facility] Lymphocytes/100 WBC Auto (Bl d)Ordered By: CANDICE Cody on 08-02-2022 Lymphocytes/100 WBC (Bld) 17.0 % . [facility] MCH Auto (RBC) [Entitic mass ]Ordered By: CANDICE Cody on 08-02-2022 MCH (RBC) [Entitic mass] 32.3 pg 24.7-34.3 [facility] MCHC Auto (RBC) [Mass/Vol]Or dered By: CANDICE Cody on 08-02-2022 MCHC (RBC) [Mass/Vol] 33.2 g/dL 32.0-35.0 [facility] MCV Auto (RBC) [Entitic vol] Ordered By: CANDICE Cody on 08-02-2022 MCV (RBC) [Entitic vol] 97.4 fL 80-100 [facility] Monocytes Auto (Bld) [#/Vol] Ordered By: CANDICE Cody on 08-02-2022 Monocytes (Bld) [#/Vol] 0.6 10*3/uL 0.0-0.8 [facility] Monocytes/100 WBC Auto (Bld) Ordered By: CANDICE Cody on 08-02-2022 Monocytes/100 WBC (Bld) 6.8 % . [facility] Neutrophils Auto (Bld) [#/Vo l]Ordered By: CANDICE Cody on 08-02-2022 Neutrophils (Bld) [#/Vol] 6.9 10*3/uL 1.8-7.7 [facility] Neutrophils/100 WBC Auto (Bl d)Ordered By: CANDICE Cody on 08-02-2022 Neutrophils/100 WBC (Bld) 75.1 % . [facility] No Panel InformationOrdered By: CANDICE Cody on 08-02-2022 Estimated GFR () > 60 mL/Min [facility] Comment on above: GFR estimated refere nce range: According to KDOQI guidelines, <60 ml/min/1.73m2 is sufficient to diagnose a patient with chronic kidney disease. Pharmacy Creatinine Clearance (Chem 152.15 [facility] Nucleated erythrocytes [Pres ence] in Blood by Automated countOrdered By: CANDICE Cody on 08-02-2022 Nucleated RBC Auto Ql (Bld) 0.0 /100{WBC} 0-0.5 [facility] Platelet mean volume Auto (B ld) [Entitic vol]Ordered By: CANDICE Cody on 08-02-2022 Platelet mean volume (Bld) [Entitic vol] 8.2 fL 6.3-10.7 [facility] Platelets Auto (Bld) [#/Vol] Ordered By: CANDICE Cody on 08-02-2022 Platelets (Bld) [#/Vol] 130 10*3/uL 150-450 [facility] Protein [Mass/volume] in Ser um or PlasmaOrdered By: CANDICE Cody on 08-02-2022 Protein [Mass/Vol] 5.8 g/dL 6.1-7.9 [facility] RBC Auto (Bld) [#/Vol]Ordere d By: CANDICE Cody on 08-02-2022 RBC (Bld) [#/Vol] 3.57 10*6/uL 3.60-5.00 [facility] Reagin Ab [Presence] in Seru m by RPROrdered By: CANDICE Cody on 08-02-2022 Reagin Ab RPR Ql (S) Non-Reactive Non Reactive [facility] Comment on above: Performed at: [facility] [address] [id number] Director: Prabhakar Warren PhD, Phone: [phone] Serum or plasma alanine cox otransferase measurement without P-5'-P (enzymatic activiOrdered By: CANDICE Cody on 08-02-2022 ALT No additional P-5'-P [Catalytic activity/Vol] 12 U/L 10-60 [facility] Serum or plasma albumin/glob ulin mass ratioOrdered By: CANDICE Cody on 08-02-2022 Albumin/Globulin [Mass ratio] 0.9 {ratio} [facility] Serum or plasma alkaline sam sphatase measurement (enzymatic activity/volume)Ordered By: CANDICE Cody on 08-02-2022 ALP [Catalytic activity/Vol] 97 U/L 32-92 [facility] Serum or plasma anion gap de terminationOrdered By: CANDICE Cody on 08-02-2022 Anion gap [Moles/Vol] 11.3 mmol/L 6.0-15.0 [facility] Serum or plasma aspartate am inotransferase measurement (enzymatic activity/volume)Ordered By: CANDICE Cody on 08-02-2022 AST [Catalytic activity/Vol] 19 U/L 10-42 [facility] Serum or plasma calcium katie urement (mass/volume)Ordered By: CANDICE Cody on 08-02-2022 Calcium [Mass/Vol] 9.6 mg/dL 8.2-10.2 [facility] Serum or plasma chloride victorino surement (moles/volume)Ordered By: CANDICE Cody on 08-02-2022 Chloride [Moles/Vol] 107 mmol/L 95-114 [facility] Serum or plasma glucose katie urement (mass/volume)Ordered By: CANDICE Cody on 08-02-2022 Glucose [Mass/Vol] 84 mg/dL 70-100 [facility] Comment on above: ADA recommended refe rence rangeRandom Glucose Reference Range is dependent on time and content of last meal. Glucose of more than 200 mg/dL in a nonstressed, ambulatory subject supports the diagnosis of Diabetes Mellitus. Serum or plasma potassium me asurement (moles/volume)Ordered By: CANDICE Cody on 08-02-2022 Potassium [Moles/Vol] 3.8 mmol/L 3.5-5.1 [facility] Serum or plasma sodium measu rement (moles/volume)Ordered By: CANDICE Cody on 08-02-2022 Sodium [Moles/Vol] 135 mmol/L 136-146 [facility] Serum or plasma total biliru bin measurement (mass/volume)Ordered By: CANDICE Cody on 08-02-2022 Bilirubin [Mass/Vol] 0.6 mg/dL 0.3-1.2 [facility] Serum or plasma total carbon dioxide measurement (moles/volume)Ordered By: JASON Cody on 08-02-2022 CO2 [Moles/Vol] 20.5 mmol/L 22.0-30.0 [facility] Serum or plasma urea nitroge n measurement (mass/volume)Ordered By: CANDICE Cody on 08-02-2022 Urea nitrogen [Mass/Vol] 6 mg/dL 9-23 [facility] Serum or plasma uric acid me asurement (mass/volume)Ordered By: CANDICE Cody on 08-02-2022 Urate [Mass/Vol] 4.5 mg/dL 2.6-7.2 [facility] WBC Auto (Bld) [#/Vol]Ordere d By: CANDICE Cody on 08-02-2022 WBC (Bld) [#/Vol] 9.1 10*3/uL 3.8-11.6 [facility] Amphetamine Screen Ql (U)Ord ered By: CANDICE Cody on 08-01-2022 Amphetamines Ql (U) Negative Negative [facility] Automated erythrocytes count in urine sediment (number/area)Ordered By: CANDICE Cody on 08-01-2022 RBC Auto (Urine sed) [#/Area] 3-4 [HPF] 0-4 [facility] Automated leukocytes count i n urine sediment (number/area)Ordered By: CANDICE Cody on 08-01-2022 WBC Auto (Urine sed) [#/Area] 50-100 [HPF] 0-4 [facility] Barbiturates [Presence] in U rineOrdered By: CANDICE Cody on 08-01-2022 Barbiturates Ql (U) Negative Negative [facility] Benzodiazepines [Presence] i n UrineOrdered By: CANDICE Cody on 08-01-2022 Benzodiazepines Ql (U) Negative Negative [facility] Bilirubin Test strip Ql (U)O rdered By: CANDICE Cody on 08-01-2022 Bilirubin Ql (U) Negative Negative [facility] Color Auto (U)Ordered By: MD CAMILLE Cody on 08-01-2022 Color (U) Yellow Yellow [facility] Ketones Auto test strip (U) [Mass/Vol]Ordered By: CANDICE Cody on 08-01-2022 Ketones (U) [Mass/Vol] Negative Negative [facility] - Drug toxicology Ordered By: CANDICE Cody on 08-01-2022 Opiates Ql (U) Negative Negative [facility] - UrinalysisOrder ed By: CANDICE Cody on 08-01-2022 Hyaline casts LM Ql (Urine sed) 0-8 [LPF] 0-8 [facility] Nitrite Test strip Ql (U)Ord ered By: CANDICE Cody on 08-01-2022 Nitrite Ql (U) Negative Negative [facility] Phencyclidine Screen Ql (U)O rdered By: CANDICE Cody on 08-01-2022 Phencyclidine Ql (U) Negative Negative [facility] Comment on above: These are unconfirme d results and should not be used for legal purposes. Drug Cut-Off Concentration: AMPH 1000 ng/mL BOO 200 ng/mL HELGA 200 ng/mL COCM 300 ng/mL OP 300 ng/mL PCP 25 ng/mL Protein Auto test strip (U) [Mass/Vol]Ordered By: CANDICE Cody on 08-01-2022 Protein (U) [Mass/Vol] Negative Negative [facility] Specific gravity Auto test s trip (U) [Rel density]Ordered By: CANDICE Cody on 08-01-2022 Specific gravity (U) [Rel density] 1.014 1.001-1.030 [facility] Squamous epithelial cells de tection in urine sediment by light microscopyOrdered By: CANDICE Cody on 08-01-2022 Epithelial cells.squamous LM Ql (Urine sed) 5-9 [HPF] 0-2 [facility] Urine bacteria detection by automated methodOrdered By: CANDICE Cody on 08-01-2022 Bacteria Auto Ql (U) None seen None Seen [facility] Urine clarity by refractomet ry automatedOrdered By: CANDICE Cody on 08-01-2022 Clarity Refractometry automated (U) Cloudy Clear [facility] Urine cocaine detectionOrder ed By: CANDICE Cody on 08-01-2022 Cocaine Ql (U) Negative Negative [facility] Urine culture routineOrdered By: CANDICE Cody on 08-01-2022 Bacteria identified Cx Nom (U) 2 Days [facility] Bacteria identified Cx Nom (U) 2 Days [facility] Urine glucose measurement by automated test strip (mass/volume)Ordered By: JASON Cody on 08-01-2022 Glucose Auto test strip (U) [Mass/Vol] Normal mg/dL Normal [facility] Urine hemoglobin detection b y automated test stripOrdered By: CANDICE Cody on 08-01-2022 Hemoglobin Auto test strip Ql (U) Negative Negative [facility] Urine leukocyte esterase det ection by automated test stripOrdered By: CANDICE Cody on 08-01-2022 Leukocyte esterase Auto test strip Ql (U) 4+ Negative [facility] Urobilinogen Auto test strip (U) [Mass/Vol]Ordered By: CANDICE Cody on 08-01-2022 Urobilinogen (U) [Mass/Vol] Normal mg/dL Normal [facility] pH Auto test strip (U)Ordere d By: CANDICE Cody on 08-01-2022 pH (U) 5.5 [pH] 5.0-9.0 [facility] S. agalactiae Org specific c x Ql (Unsp spec)Ordered By: Urbano Palma on 07-25-2022 Group B Streptococcus Culture Strep. agalactiae Grp B [facility] Group B Streptococcus Culture Strep. agalactiae Grp B [facility] Office Visit (Cardiology)on 07-22-2022 Follow-up visit Diagnoses/Problems Assessed Complete heart block (426.0) (I44.2) Sinus node dysfunction (427.81) (I49.5) Sinus bradycardia (427.89) (R00.1) Cardiac pacemaker (V45.01) (Z95.0) Syncope (780.2) (R55) Sinus tachycardia (427.89) (R00.0) Encounter for medication counseling (V65.49) (Z71.89) Encounter to discuss test results (V65.49) (Z71.2) Shortness of breath (786.05) (R06.02) Atrial tachycardia (427.89) (I47.1) Non-smoker (V49.89) (Z78.9) Morbid obesity with BMI of 40.0-44.9, adult (278.01,V85.41) (E66.01,Z68.41) (V22.2) (Z34.90) Chiari I malformation (348.4) (G93.5) Orders Morbid obesity with BMI of 40.0-44.9, adult Healthy Weight Tips; Status:Complete - Retrospective Authorization; Done: 22Jul2022 Losing just 5 to 10 pounds may lower your risk of health problems.; Status:Complete - Retrospective Authorization; Done: 22Jul2022 Sinus node dysfunction IO EKG Electrocardiogram- 12 Lead; Status:Complete - Retrospective Authorization; Done: 22Jul2022 SocHx: Non-smoker Tobacco Use Screening; Status:Complete; Done: 22Jul2022 Patient Instructions Continue same medications/treatment. Patient educated on proper medication use. Patient educated on risk factor modification. Please bring any lab results from other providers/physicians to your next appointment. Please bring all medicines, vitamins, and herbal supplements with you when you come to the office. Prescriptions will not be filled unless you are compliant with your follow up appointments or have a follow up appointment scheduled as per instruction of your physician. Refills should be requested at the time of your visit. Patient currently 36 weeks . Okay for standard vaginal delivery but if labor is prolonged then advise . Patient has properly working pacemaker. Follow up in [address] Rita Olivia MD, FACC, FACP, FHRS with a device check I, Sheyla Castillo LPN, am scribing for and in the presence of, Dr. Rita Olivia MD, FACC, FACP, RS. Chief Complaint Patient here for 6 month follow-up with [facility]. She is 16 weeks Adult Risk Screening Initial Fall Risk Screening: MARICARMEN has not fallen in the last 6 months. Tobacco Screening: MARICARMEN does not use tobacco. History of Present Illness She is here for electrophysiology evaluation The patient is here to discuss bradycardia and pacemaker. She is 36 weeks . SHe hasn't had any blood pressure or heart rate issues during . She inquires about whether or C section is recommended. We discussed that if labor is prolonged then moving to C section to avoid tachycardia would be recommended. Rarely she is dizzy. The patient denies any lightheadedness, near syncope, syncope, palpitation, chest discomfort, orthopnea, PND, orthopnea, or edema. The device site is well-healed and unchanged. The patient denies any redness, swelling, or drainage of the site. See ROS, PMH, FMH, and surgical history for details. 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 Personal review of ECG and cardiac data reviewed . Outside records: OV with mi December 2021 Device check December 2021 ECG December 2021 Device Check: Today. [employer] 2272 pacemaker. Estimate longevity device over 7 years. 7% atrial pacing. Less than 1% ventricular pacing. Probable sinus tachycardia vs atrial tachycardia, up to 7 minutes duration, less than 1% AT/AF ECG: Today. Normal sinus rhythm. Normal axis. Corrected QT interval 410 ms Imp / Plan Chronotropic incompetence intermittent complete heart block, and sinus node dysfunction with symptoms of near syncope and syncope. Documented over 4-second pause by loop recorder. History of negative EP study with no inducible arrhythmias. Stable. Chronic. No recurrence of syncope after pacemaker implanted. Heart rate histogram is susceptible. No change in sensor settings needed presently History of loop recorder 2019 and subsequent removal of loop recorder after documentation of pause and intermittent complete heart block [employer] 2272 pacemaker in 2019. Reviewed device check. Stable. Normal device function. Reviewed device check with patient. Ordered device checks. Alternate remote check with device clinic paired With EP office visit. Likely sinus tachycardia versus atrial tachycardia. Recommend increase fluid intake. Behavioral modification reinforced.. Negative CTA for pulmonary embolism. Chronic. Stable. No symptoms. Chronic gastroparesis. Port removed once fluid status stable. Pseudotumor cerebri per MRI per patient report. Chronic. Stable. Takes Diamox and lamotrigine. Patient report, she is on medical disability due to [employer] network and intra cerebral pressure. Follows with neurology and neurosurgery Seizure disorder. Chronic. Stable. Follows with neurology Intrauterine . 36 weeks. No arrhythmia issues noted. If prolonged labor, would then recommend C section to minimize tachycardia Overweight AHA (more content not included)... Normal [employer] Mess[employer] Tobacco Screening.on 023 Fall risk assessment a) No falls within the last year [facility] DO Work Phone: Tobacco use status [facility] b) No [facility] DO Work Phone: Tobacco Screening. Yes [facility] [address] DO Work Phone: Amphetamine Screen Ql (U)Ord ered By: Michael Cerda on 07-15-2022 Amphetamines Ql (U) Negative Negative [facility] Automated erythrocytes count in urine sediment (number/area)Ordered By: Michael Cerda on 07-15-2022 RBC Auto (Urine sed) [#/Area] 0-1 [HPF] 0-4 [facility] Automated leukocytes count i n urine sediment (number/area)Ordered By: Michael Cerda on 07-15-2022 WBC Auto (Urine sed) [#/Area] 50-100 [HPF] 0-4 [facility] Barbiturates [Presence] in U rineOrdered By: Michael Cerda on 07-15-2022 Barbiturates Ql (U) Negative Negative [facility] Basophils Auto (Bld) [#/Vol] Ordered By: Michael Cerda on 07-15-2022 Basophils (Bld) [#/Vol] 0.0 10*3/uL 0.0-0.2 [facility] Basophils/100 WBC Auto (Bld) Ordered By: Michael Cerda on 07-15-2022 Basophils/100 WBC (Bld) 0.4 % . [facility] Benzodiazepines [Presence] i n UrineOrdered By: Michael Cerda on 07-15-2022 Benzodiazepines Ql (U) Negative Negative [facility] Bilirubin Test strip Ql (U)O rdered By: Michael Cerda on 07-15-2022 Bilirubin Ql (U) Negative Negative [facility] Body fluid albumin measureme nt (mass/volume)Ordered By: Michael Cerda on 07-15-2022 Albumin (Body fld) [Mass/Vol] 2.9 g/dL 3.2-5.5 [facility] Cannabinoids [Presence] in U rine by Screen methodOrdered By: Michael Cerda on 07-15-2022 Cannabinoids Screen Ql (U) Negative Negative [facility] Comment on above: These are unconfirme d results and should not be used for legal purposes. Drug Cut-Off Concentration: AMPH 1000 ng/mL BOO 200 ng/mL HELGA 200 ng/mL COCM 300 ng/mL OP 300 ng/mL PCP 25 ng/mL THC 20 ng/mL Cholesterol [Mass/volume] in Serum or PlasmaOrdered By: Eduardo Swain on 07-15-2022 Cholesterol [Mass/Vol] 250 mg/dL 140-200 [facility] Comment on above: Chol less than 200 m g/dl low riskChol 201-239 mg/dl borderline riskChol 240 mg/dl and greater high risk Cholesterol in LDL Calc [Mas s/Vol]Ordered By: Eduardo Swain on 07-15-2022 Cholesterol in LDL [Mass/Vol] 138 mg/dL 0-100 [facility] Comment on above: LDL ATP III CLASSIFI CATIONLDL less than 100 mg/dL OptimalLDL 100-129 mg/dL Near or above optimalLDL 130-159 mg/dL Borderline highLDL 160-189 mg/dL HighLDL greater than 189 mg/dL Very high Cholesterol in VLDL Calc [Ma ss/Vol]Ordered By: Eduardo Swain on 07-15-2022 Cholesterol in VLDL [Mass/Vol] 40 mg/dL [facility] Color Auto (U)Ordered By: Lorene Cerda on 07-15-2022 Color (U) Yellow Yellow [facility] Creatinine and Glomerular fi ltration rate.predicted panel (S/P/Bld)Ordered By: Michael Cerda on 07-15-2022 Creatinine [Mass/Vol] 0.66 mg/dL 0.44-1.03 [facility] Eosinophils Auto (Bld) [#/Vo l]Ordered By: Michael Cerda on 07-15-2022 Eosinophils (Bld) [#/Vol] 0.0 10*3/uL 0.0-0.45 [facility] Eosinophils/100 WBC Auto (Bl d)Ordered By: Michael Cerda on 07-15-2022 Eosinophils/100 WBC (Bld) 0.4 % . [facility] Erythrocyte distribution wid th Auto (RBC) [Ratio]Ordered By: Michael Cerda on 07-15-2022 Erythrocyte distribution width (RBC) [Ratio] 18.8 % 11.9-15.3 [facility] Estimated glomerular filtrat ion rate (GFR) non- AmericanOrdered By: Michael Cerda on 07-15-2022 GFR/1.73 sq M.predicted among non-blacks MDRD (S/P/Bld) [Vol rate/Area] > 60 mL/Min [facility] Globulin Calc (S) [Mass/Vol] Ordered By: Michael Cerda on 07-15-2022 Globulin (S) [Mass/Vol] 3.2 g/dL [facility] Hematocrit Auto (Bld) [Volum e fraction]Ordered By: Michael Cerda on 07-15-2022 Hematocrit (Bld) [Volume fraction] 34.4 % 34.0-46.4 [facility] Hemoglobin [Mass/volume] in BloodOrdered By: Michael Cerda on 07-15-2022 Hemoglobin (Bld) [Mass/Vol] 11.3 g/dL 11.8-15.4 [facility] Ketones Auto test strip (U) [Mass/Vol]Ordered By: Michael Cerda on 07-15-2022 Ketones (U) [Mass/Vol] 2+ [facility] Ordered By: Michael Cerda on 07-15-2022 Opiates Ql (U) Negative Negative [facility] Laboratory - UrinalysisOrder ed By: Michael Cerda on 07-15-2022 Hyaline casts LM Ql (Urine sed) 0-8 [LPF] 0-8 [facility] Leukocytes [#/volume] correc nneka for nucleated erythrocytes in Blood by Automated counOrdered By: Michael Cerda on 07-15-2022 WBC corrected for nucl RBC Auto (Bld) [#/Vol] 7.8 10*3/uL 3.8-11.6 [facility] Lymphocytes Auto (Bld) [#/Vo l]Ordered By: Michael Cerda on 07-15-2022 Lymphocytes (Bld) [#/Vol] 1.2 10*3/uL 1.00-4.8 [facility] Lymphocytes/100 WBC Auto (Bl d)Ordered By: Michael Cerda on 07-15-2022 Lymphocytes/100 WBC (Bld) 15.2 % . [facility] MCH Auto (RBC) [Entitic mass ]Ordered By: Michael Cerda on 07-15-2022 MCH (RBC) [Entitic mass] 31.8 pg 24.7-34.3 [facility] MCHC Auto (RBC) [Mass/Vol]Or dered By: Michael Cerda on 07-15-2022 MCHC (RBC) [Mass/Vol] 33.0 g/dL 32.0-35.0 [facility] MCV Auto (RBC) [Entitic vol] Ordered By: Michael Cerda on 07-15-2022 MCV (RBC) [Entitic vol] 96.4 fL 80-100 [facility] Monocyte distribution width [Entitic volume] in Blood by AutomatedOrdered By: Michael Cerda on 07-15-2022 Monocyte distribution width Auto (Bld) [Entitic vol] 19.01 % 0.00-20.00 [facility] Monocytes Auto (Bld) [#/Vol] Ordered By: Michael Cerda on 07-15-2022 Monocytes (Bld) [#/Vol] 0.4 10*3/uL 0.0-0.8 [facility] Monocytes/100 WBC Auto (Bld) Ordered By: Michael Cerda on 07-15-2022 Monocytes/100 WBC (Bld) 5.1 % . [facility] Neutrophils Auto (Bld) [#/Vo l]Ordered By: Michael Cerda on 07-15-2022 Neutrophils (Bld) [#/Vol] 6.1 10*3/uL 1.8-7.7 [facility] Neutrophils/100 WBC Auto (Bl d)Ordered By: Michael Cerda on 07-15-2022 Neutrophils/100 WBC (Bld) 78.9 % . [facility] Nitrite Test strip Ql (U)Ord ered By: Michael Cerda on 07-15-2022 Nitrite Ql (U) Negative Negative [facility] No Panel InformationOrdered By: Eduardo Swain on 07-15-2022 25-Hydroxy Vitamin D Total 38.8 ng/mL 30-100 [facility] Comment on above: VITAMIN D STATUS 25( [place])VITAMIN D RANGE (ng/mL) Deficient <20 Insufficient 20 to <30Sufficient 30 to 100Reference: Franklyn MF,Benjamin NC, Andreina MARQUEZ, et al. Evaluation,treatment, and prevention of vitamin D deficiency; an Endocrine Society clinical practice guideline. JCEM. 2010; 96(7):1911-30. No Panel InformationOrdered By: Michael Cerda on 07-15-2022 Estimated GFR () > 60 mL/Min [facility] Comment on above: GFR estimated refere nce range: According to KDOQI guidelines, <60 ml/min/1.73m2 is sufficient to diagnose a patient with chronic kidney disease. Pharmacy Creatinine Clearance (Chem 148.00 [facility] Nucleated erythrocytes [Pres ence] in Blood by Automated countOrdered By: Michael Cerda on 07-15-2022 Nucleated RBC Auto Ql (Bld) 0.1 /100{WBC} 0-0.5 [facility] Phencyclidine Screen Ql (U)O rdered By: Michael Cerda on 07-15-2022 Phencyclidine Ql (U) Negative Negative [facility] Platelet mean volume Auto (B ld) [Entitic vol]Ordered By: Michael Cerda on 07-15-2022 Platelet mean volume (Bld) [Entitic vol] 7.9 fL 6.3-10.7 [facility] Platelets Auto (Bld) [#/Vol] Ordered By: Michael Cerda on 07-15-2022 Platelets (Bld) [#/Vol] 157 10*3/uL 150-450 [facility] Protein Auto test strip (U) [Mass/Vol]Ordered By: Michael Cerda on 07-15-2022 Protein (U) [Mass/Vol] Negative [facility] Protein [Mass/volume] in Ser um or PlasmaOrdered By: Michael Cerda on 07-15-2022 Protein [Mass/Vol] 6.1 g/dL 6.1-7.9 [facility] RBC Auto (Bld) [#/Vol]Ordere d By: Michael Cerda on 07-15-2022 RBC (Bld) [#/Vol] 3.57 10*6/uL 3.60-5.00 [facility] Serum or plasma alanine cox otransferase measurement without P-5'-P (enzymatic activiOrdered By: Michael Cerda on 07-15-2022 ALT No additional P-5'-P [Catalytic activity/Vol] 14 U/L 10-60 [facility] Serum or plasma albumin/glob ulin mass ratioOrdered By: Michael Cerda on 07-15-2022 Albumin/Globulin [Mass ratio] 0.9 {ratio} [facility] Serum or plasma alkaline sam sphatase measurement (enzymatic activity/volume)Ordered By: Michael Cerda on 07-15-2022 ALP [Catalytic activity/Vol] 83 U/L 32-92 [facility] Serum or plasma anion gap de terminationOrdered By: Michael Cerda on 07-15-2022 Anion gap [Moles/Vol] 13.3 mmol/L 6.0-15.0 [facility] Serum or plasma aspartate am inotransferase measurement (enzymatic activity/volume)Ordered By: Michael Cerda on 07-15-2022 AST [Catalytic activity/Vol] 22 U/L 10-42 [facility] Serum or plasma calcium katie urement (mass/volume)Ordered By: Michael Cerda on 07-15-2022 Calcium [Mass/Vol] 9.5 mg/dL 8.2-10.2 [facility] Serum or plasma chloride victorino surement (moles/volume)Ordered By: Michael Cerda on 07-15-2022 Chloride [Moles/Vol] 104 mmol/L 95-114 [facility] Serum or plasma ethanol katie urement (mass/volume)Ordered By: Michael Cerda on 07-15-2022 Ethanol [Mass/Vol] mg/dL [facility] Ethanol [Mass/Vol] TNP [facility] Comment on above: Test not performed Serum or plasma glucose katie urement (mass/volume)Ordered By: Michael Cerda on 07-15-2022 Glucose [Mass/Vol] 82 mg/dL 70-100 [facility] Comment on above: ADA recommended refe rence rangeRandom Glucose Reference Range is dependent on time and content of last meal. Glucose of more than 200 mg/dL in a nonstressed, ambulatory subject supports the diagnosis of Diabetes Mellitus. Serum or plasma high density lipoprotein (HDL) cholesterol measurementOrdered By: Eduardo Swain on 07-15-2022 Cholesterol in HDL [Mass/Vol] 72 mg/dL 35-85 [facility] Comment on above: HDL CHOL ATP-III CLA SSIFICATION Cardiovascular RiskHDL > or equal to 60 mg/dL LOWHDL < 40 mg/dL HIGH Serum or plasma potassium me asurement (moles/volume)Ordered By: Michael Cerda on 07-15-2022 Potassium [Moles/Vol] 3.6 mmol/L 3.5-5.1 [facility] Serum or plasma sodium measu rement (moles/volume)Ordered By: Michael Cerda on 07-15-2022 Sodium [Moles/Vol] 135 mmol/L 136-146 [facility] Serum or plasma total biliru bin measurement (mass/volume)Ordered By: Michael Cerda on 07-15-2022 Bilirubin [Mass/Vol] 0.6 mg/dL 0.3-1.2 [facility] Serum or plasma total carbon dioxide measurement (moles/volume)Ordered By: Michael Cerda on 07-15-2022 CO2 [Moles/Vol] 21.3 mmol/L 22.0-30.0 [facility] Serum or plasma total choles terol/high density lipoprotein (HDL) cholesterol mass ratOrdered By: Eduardo Swain on 07-15-2022 Cholesterol.total/Chol esterol in HDL [Mass ratio] 3.5 {ratio} <5.0 [facility] Serum or plasma urea nitroge n measurement (mass/volume)Ordered By: Michael Cerda on 07-15-2022 Urea nitrogen [Mass/Vol] 4 mg/dL 9-23 [facility] Specific gravity Auto test s trip (U) [Rel density]Ordered By: Michael Cerda on 07-15-2022 Specific gravity (U) [Rel density] 1.010 1.001-1.030 [facility] Squamous epithelial cells de tection in urine sediment by light microscopyOrdered By: Michael Cerda on 07-15-2022 Epithelial cells.squamous LM Ql (Urine sed) 5-9 [HPF] 0-2 [facility] TSH DL <= 0.005 mIU/L QnOrde red By: Eduardo Swain on 07-15-2022 TSH Qn 2.04 m[IU]/L 0.45-5.33 [facility] Triglyceride [Mass/volume] i n Serum or PlasmaOrdered By: Eduardo Swain on 07-15-2022 Triglyceride [Mass/Vol] 200 mg/dL 35-149 [facility] Comment on above: TRIG ATP III CLASSIF ICATIONTRIG less than 150 mg/dL NormalTRIG 150-199 mg/dL Borderline highTRIG 200-500 mg/dL High TRIG greater than 500 mg/dL Very highStandard traceable to the Center for Disease Conrtrol and Prevention (CDC) test method. Urine bacteria detection by automated methodOrdered By: Michael Cerda on 07-15-2022 Bacteria Auto Ql (U) None seen None Seen [facility] Urine clarity by refractomet ry automatedOrdered By: Michael Cerda on 07-15-2022 Clarity Refractometry automated (U) Cloudy Clear [facility] Urine cocaine detectionOrder ed By: Michael Cerda on 07-15-2022 Cocaine Ql (U) Negative Negative [facility] Urine culture routineOrdered By: Michael Cerda on 01-24-2023 Bacteria identified Cx Nom (U) 2 Days [facility] Urine glucose measurement by automated test strip (mass/volume)Ordered By: Michael Cerda on 07-15-2022 Glucose Auto test strip (U) [Mass/Vol] Normal mg/dL Normal [facility] Urine hemoglobin detection b y automated test stripOrdered By: Michael Cerda on 07-15-2022 Hemoglobin Auto test strip Ql (U) Negative Negative [facility] Urine leukocyte esterase det ection by automated test stripOrdered By: Michael Cerda on 07-15-2022 Leukocyte esterase Auto test strip Ql (U) 4+ Negative [facility] Urobilinogen Auto test strip (U) [Mass/Vol]Ordered By: Michael Cerda on 07-15-2022 Urobilinogen (U) [Mass/Vol] Normal mg/dL Normal [facility] WBC Auto (Bld) [#/Vol]Ordere d By: Michael Cerda on 07-15-2022 WBC (Bld) [#/Vol] 7.8 10*3/uL 3.8-11.6 [facility] pH Auto test strip (U)Ordere d By: Michael Cerda on 07-15-2022 pH (U) 5.5 [pH] 5.0-9.0 [facility] Basophils Auto (Bld) [#/Vol] Ordered By: Urbano Palma on 07-09-2022 Basophils (Bld) [#/Vol] 0.0 10*3/uL 0.0-0.2 [facility] Basophils/100 WBC Auto (Bld) Ordered By: Urbano Palma on 07-09-2022 Basophils/100 WBC (Bld) 0.4 % . [facility] Eosinophils Auto (Bld) [#/Vo l]Ordered By: Urbano Palma on 07-09-2022 Eosinophils (Bld) [#/Vol] 0.1 10*3/uL 0.0-0.45 [facility] Eosinophils/100 WBC Auto (Bl d)Ordered By: Urbano Palma on 07-09-2022 Eosinophils/100 WBC (Bld) 1.0 % . [facility] Erythrocyte distribution wid th Auto (RBC) [Ratio]Ordered By: Urbano Palma on 07-09-2022 Erythrocyte distribution width (RBC) [Ratio] 19.0 % 11.9-15.3 [facility] Hematocrit Auto (Bld) [Volum e fraction]Ordered By: Urbano Palma on 07-09-2022 Hematocrit (Bld) [Volume fraction] 37.4 % 34.0-46.4 [facility] Hemoglobin [Mass/volume] in BloodOrdered By: Urbano Palma on 07-09-2022 Hemoglobin (Bld) [Mass/Vol] 12.2 g/dL 11.8-15.4 [facility] Leukocytes [#/volume] correc nneka for nucleated erythrocytes in Blood by Automated counOrdered By: Urbano Palma on 07-09-2022 WBC corrected for nucl RBC Auto (Bld) [#/Vol] 8.1 10*3/uL 3.8-11.6 [facility] Lymphocytes Auto (Bld) [#/Vo l]Ordered By: Urbano Palma on 07-09-2022 Lymphocytes (Bld) [#/Vol] 1.2 10*3/uL 1.00-4.8 [facility] Lymphocytes/100 WBC Auto (Bl d)Ordered By: Urbano Palma on 07-09-2022 Lymphocytes/100 WBC (Bld) 14.9 % . [facility] MCH Auto (RBC) [Entitic mass ]Ordered By: Urbano Palma on 07-09-2022 MCH (RBC) [Entitic mass] 31.4 pg 24.7-34.3 [facility] MCHC Auto (RBC) [Mass/Vol]Or dered By: Urbano Palma on 07-09-2022 MCHC (RBC) [Mass/Vol] 32.7 g/dL 32.0-35.0 [facility] MCV Auto (RBC) [Entitic vol] Ordered By: Urbano Palma on 07-09-2022 MCV (RBC) [Entitic vol] 95.8 fL 80-100 [facility] Monocytes Auto (Bld) [#/Vol] Ordered By: Urbano Palma on 07-09-2022 Monocytes (Bld) [#/Vol] 0.4 10*3/uL 0.0-0.8 [facility] Monocytes/100 WBC Auto (Bld) Ordered By: Urbano Palma on 07-09-2022 Monocytes/100 WBC (Bld) 5.1 % . [facility] Neutrophils Auto (Bld) [#/Vo l]Ordered By: Urbano Palma on 07-09-2022 Neutrophils (Bld) [#/Vol] 6.3 10*3/uL 1.8-7.7 [facility] Neutrophils/100 WBC Auto (Bl d)Ordered By: Urbano Palma on 07-09-2022 Neutrophils/100 WBC (Bld) 78.6 % . [facility] Nucleated erythrocytes [Pres ence] in Blood by Automated countOrdered By: Urbano Palma on 07-09-2022 Nucleated RBC Auto Ql (Bld) 0.1 /100{WBC} 0-0.5 [facility] Platelet mean volume Auto (B ld) [Entitic vol]Ordered By: Urbano Palma on 07-09-2022 Platelet mean volume (Bld) [Entitic vol] 8.2 fL 6.3-10.7 [facility] Platelets Auto (Bld) [#/Vol] Ordered By: Urbano Palma on 07-09-2022 Platelets (Bld) [#/Vol] 180 10*3/uL 150-450 [facility] RBC Auto (Bld) [#/Vol]Ordere d By: Urbano Palma on 07-09-2022 RBC (Bld) [#/Vol] 3.91 10*6/uL 3.60-5.00 [facility] WBC Auto (Bld) [#/Vol]Ordere d By: Urbano Palma on 07-09-2022 WBC (Bld) [#/Vol] 8.1 10*3/uL 3.8-11.6 [facility] Serum or plasma glucose tole cecelia 3 hours panelOrdered By: Urbano Palma on 06-30-2022 Glucose tolerance 3 hours panel See comment [facility] Comment on above: FASTING 82 Col: 03/14 0616 1HR GLU 215 Col: 06/30/22 0800 2HR GLU 194 Col: 06/30/22 0901 3HR GLU 71 Col: 06/30/22 1000 Amphetamine Screen Ql (U)Ord ered By: DELANEY CARLISLE on 06-26-2022 Amphetamines Ql (U) Negative Negative [facility] Automated erythrocytes count in urine sediment (number/area)Ordered By: DELANEY CARLISLE on 06-26-2022 RBC Auto (Urine sed) [#/Area] 1-2 [HPF] 0-4 [facility] Automated leukocytes count i n urine sediment (number/area)Ordered By: DELANEY CARLISLE on 06-26-2022 WBC Auto (Urine sed) [#/Area] 50-100 [HPF] 0-4 [facility] Automated urine hyaline cast s count (number/volume)Ordered By: DELANEY CARLISLE on 06-26-2022 Hyaline casts Auto (U) [#/Vol] None seen [LPF] 0-1 [facility] Automated urine sediment claudia cium oxalate crystal count by microscopy (number/high powOrdered By: DELANEY CARLISLE on 06-26-2022 Calcium oxalate crystals LM.HPF (Urine sed) [#/Area] 3+ [HPF] [facility] Barbiturates [Presence] in U rineOrdered By: DELANEY CARLISLE on 06-26-2022 Barbiturates Ql (U) Negative Negative [facility] Benzodiazepines [Presence] i n UrineOrdered By: DELANEY CARLISLE on 06-26-2022 Benzodiazepines Ql (U) Negative Negative [facility] Bilirubin Test strip Ql (U)O rdered By: DELANEY CARLISLE on 06-26-2022 Bilirubin Ql (U) 1+ Negative [facility] Color Auto (U)Ordered By: VLAD CARLISLE on 06-26-2022 Color (U) Dark yellow Yellow [facility] fibronectinOrdered By: DELANEY CARLISLE on 06-26-2022 Fibronectin. (Vag fld) [Mass/Vol] Negative Negative [facility] Ketones Auto test strip (U) [Mass/Vol]Ordered By: DELANEY CARLISLE on 06-26-2022 Ketones (U) [Mass/Vol] 1+ Negative [facility] - Drug toxicology Ordered By: DELANEY CARLISLE on 06-26-2022 Opiates Ql (U) Negative Negative [facility] Nitrite Test strip Ql (U)Ord ered By: DELANEY CARLISLE on 06-26-2022 Nitrite Ql (U) Negative Negative [facility] No Panel InformationOrdered By: DELANEY CARLISLE on 06-26-2022 Membranes Rupture (PAMG-1) Negative Negative [facility] Phencyclidine Screen Ql (U)O rdered By: DELANEY CARLISLE on 06-26-2022 Phencyclidine Ql (U) Negative Negative [facility] Comment on above: These are unconfirme d results and should not be used for legal purposes. Drug Cut-Off Concentration: AMPH 1000 ng/mL BOO 200 ng/mL HELGA 200 ng/mL COCM 300 ng/mL OP 300 ng/mL PCP 25 ng/mL Protein Auto test strip (U) [Mass/Vol]Ordered By: DELANEY CARLISLE on 06-26-2022 Protein (U) [Mass/Vol] 30 mg/dL Negative [facility] Specific gravity Auto test s trip (U) [Rel density]Ordered By: DELANEY CARLISLE on 06-26-2022 Specific gravity (U) [Rel density] 1.029 1.001-1.030 [facility] Squamous epithelial cells de tection in urine sediment by light microscopyOrdered By: DELANEY CARLISLE on 06-26-2022 Epithelial cells.squamous LM Ql (Urine sed) 5-9 [HPF] 0-2 [facility] Urine bacteria detection by automated methodOrdered By: DELANEY CARLISLE on 06-26-2022 Bacteria Auto Ql (U) None seen None Seen [facility] Urine clarity by refractomet ry automatedOrdered By: DELANEY CARLISLE on 06-26-2022 Clarity Refractometry automated (U) Turbid Clear [facility] Urine cocaine detectionOrder ed By: DELANEY CARLISLE on 06-26-2022 Cocaine Ql (U) Negative Negative [facility] Urine culture routineOrdered By: DELANEY CARLISLE on 06-26-2022 Bacteria identified Cx Nom (U) Cinthya albicans [facility] Urine glucose measurement by automated test strip (mass/volume)Ordered By: DELANEY CARLISLE on 06-26-2022 Glucose Auto test strip (U) [Mass/Vol] Normal mg/dL Normal [facility] Urine hemoglobin detection b y automated test stripOrdered By: DELANEY CARLISLE on 06-26-2022 Hemoglobin Auto test strip Ql (U) Negative Negative [facility] Urine leukocyte esterase det ection by automated test stripOrdered By: DELANEY CARLISLE on 06-26-2022 Leukocyte esterase Auto test strip Ql (U) 3+ Negative [facility] Urine sediment crystal ident ification by light microscopyOrdered By: DELANEY CARLISLE on 06-26-2022 Crystals LM Nom (Urine sed) None seen [HPF] [facility] Urobilinogen Auto test strip (U) [Mass/Vol]Ordered By: DELANEY CARLISLE on 06-26-2022 Urobilinogen (U) [Mass/Vol] Normal mg/dL Normal [facility] Yeast detection in urine sed iment by light microscopyOrdered By: DELANEY CARLISLE on 06-26-2022 Yeast LM Ql (Urine sed) 2+ [HPF] None Seen [facility] pH Auto test strip (U)Ordere d By: DELANEY CARLISLE on 06-26-2022 pH (U) 5.5 [pH] 5.0-9.0 [facility] Automated erythrocytes count in urine sediment (number/area)Ordered By: Michael Cerda on 06-25-2022 RBC Auto (Urine sed) [#/Area] 3-4 [HPF] 0-4 [facility] Automated leukocytes count i n urine sediment (number/area)Ordered By: Michael Cerda on 06-25-2022 WBC Auto (Urine sed) [#/Area] Innumerable [HPF] 0-4 [facility] Basophils Auto (Bld) [#/Vol] Ordered By: PROVIDER TEMP on 06-25-2022 Basophils (Bld) [#/Vol] 0.0 10*3/uL 0.0-0.2 [facility] Basophils/100 WBC Auto (Bld) Ordered By: PROVIDER TEMP on 06-25-2022 Basophils/100 WBC (Bld) 0.1 % . [facility] Bilirubin Test strip Ql (U)O rdered By: Michael Cerda on 06-25-2022 Bilirubin Ql (U) Negative Negative [facility] Body fluid albumin measureme nt (mass/volume)Ordered By: PROVIDER TEMP on 06-25-2022 Albumin (Body fld) [Mass/Vol] 2.7 g/dL 3.2-5.5 [facility] Casts typing in urine sedime nt by light microscopyOrdered By: Michael Cerda on 06-25-2022 Casts LM Nom (Urine sed) None seen [LPF] None Seen [facility] Color Auto (U)Ordered By: Lorene Cerda on 06-25-2022 Color (U) Yellow Yellow [facility] Creatinine and Glomerular fi ltration rate.predicted panel (S/P/Bld)Ordered By: PROVIDER TEMP on 06-25-2022 Creatinine [Mass/Vol] 0.64 mg/dL 0.44-1.03 [facility] Eosinophils Auto (Bld) [#/Vo l]Ordered By: PROVIDER TEMP on 06-25-2022 Eosinophils (Bld) [#/Vol] 0.1 10*3/uL 0.0-0.45 [facility] Eosinophils/100 WBC Auto (Bl d)Ordered By: PROVIDER TEMP on 06-25-2022 Eosinophils/100 WBC (Bld) 0.7 % . [facility] Erythrocyte distribution wid th Auto (RBC) [Ratio]Ordered By: PROVIDER TEMP on 06-25-2022 Erythrocyte distribution width (RBC) [Ratio] 16.1 % 11.9-15.3 [facility] Estimated glomerular filtrat ion rate (GFR) non- AmericanOrdered By: PROVIDER TEMP on 06-25-2022 GFR/1.73 sq M.predicted among non-blacks MDRD (S/P/Bld) [Vol rate/Area] > 60 mL/Min [facility] Globulin Calc (S) [Mass/Vol] Ordered By: PROVIDER TEMP on 06-25-2022 Globulin (S) [Mass/Vol] 3.3 g/dL [facility] Hematocrit Auto (Bld) [Volum e fraction]Ordered By: PROVIDER TEMP on 06-25-2022 Hematocrit (Bld) [Volume fraction] 29.0 % 34.0-46.4 [facility] Hemoglobin [Mass/volume] in BloodOrdered By: PROVIDER TEMP on 06-25-2022 Hemoglobin (Bld) [Mass/Vol] 9.9 g/dL 11.8-15.4 [facility] Ketones Auto test strip (U) [Mass/Vol]Ordered By: Michael Cerda on 06-25-2022 Ketones (U) [Mass/Vol] 4+ Negative [facility] - UrinalysisOrder ed By: Michael Cerda on 06-25-2022 Hyaline casts LM Ql (Urine sed) 0-1 [LPF] 0-8 [facility] Leukocytes [#/volume] correc nneka for nucleated erythrocytes in Blood by Automated counOrdered By: PROVIDER TEMP on 06-25-2022 WBC corrected for nucl RBC Auto (Bld) [#/Vol] 10.5 10*3/uL 3.8-11.6 [facility] Lymphocytes Auto (Bld) [#/Vo l]Ordered By: PROVIDER TEMP on 06-25-2022 Lymphocytes (Bld) [#/Vol] 1.8 10*3/uL 1.00-4.8 [facility] Lymphocytes/100 WBC Auto (Bl d)Ordered By: PROVIDER TEMP on 06-25-2022 Lymphocytes/100 WBC (Bld) 16.7 % . [facility] MCH Auto (RBC) [Entitic mass ]Ordered By: PROVIDER TEMP on 06-25-2022 MCH (RBC) [Entitic mass] 31.6 pg 24.7-34.3 [facility] MCHC Auto (RBC) [Mass/Vol]Or dered By: PROVIDER TEMP on 06-25-2022 MCHC (RBC) [Mass/Vol] 34.2 g/dL 32.0-35.0 [facility] MCV Auto (RBC) [Entitic vol] Ordered By: PROVIDER TEMP on 06-25-2022 MCV (RBC) [Entitic vol] 92.4 fL 80-100 [facility] Monocyte distribution width [Entitic volume] in Blood by AutomatedOrdered By: PROVIDER TEMP on 06-25-2022 Monocyte distribution width Auto (Bld) [Entitic vol] 18.74 % 0.00-20.00 [facility] Monocytes Auto (Bld) [#/Vol] Ordered By: PROVIDER TEMP on 06-25-2022 Monocytes (Bld) [#/Vol] 0.8 10*3/uL 0.0-0.8 [facility] Monocytes/100 WBC Auto (Bld) Ordered By: PROVIDER TEMP on 06-25-2022 Monocytes/100 WBC (Bld) 7.5 % . [facility] Neutrophils Auto (Bld) [#/Vo l]Ordered By: PROVIDER TEMP on 06-25-2022 Neutrophils (Bld) [#/Vol] 7.9 10*3/uL 1.8-7.7 [facility] Neutrophils/100 WBC Auto (Bl d)Ordered By: PROVIDER TEMP on 06-25-2022 Neutrophils/100 WBC (Bld) 75.0 % . [facility] Nitrite Test strip Ql (U)Ord ered By: Michael Cerda on 06-25-2022 Nitrite Ql (U) Negative Negative [facility] No Panel InformationOrdered By: PROVIDER TEMP on 06-25-2022 Estimated GFR () > 60 mL/Min [facility] Comment on above: GFR estimated refere nce range: According to KDOQI guidelines, <60 ml/min/1.73m2 is sufficient to diagnose a patient with chronic kidney disease. Pharmacy Creatinine Clearance (Chem 153.48 [facility] Nucleated erythrocytes [Pres ence] in Blood by Automated countOrdered By: PROVIDER TEMP on 06-25-2022 Nucleated RBC Auto Ql (Bld) 0.3 /100{WBC} 0-0.5 [facility] Platelet mean volume Auto (B ld) [Entitic vol]Ordered By: PROVIDER TEMP on 06-25-2022 Platelet mean volume (Bld) [Entitic vol] 7.8 fL 6.3-10.7 [facility] Platelets Auto (Bld) [#/Vol] Ordered By: PROVIDER TEMP on 06-25-2022 Platelets (Bld) [#/Vol] 182 10*3/uL 150-450 [facility] Protein Auto test strip (U) [Mass/Vol]Ordered By: Michael Cerda on 06-25-2022 Protein (U) [Mass/Vol] Trace mg/dL Negative F [facility] Protein [Mass/volume] in Ser um or PlasmaOrdered By: PROVIDER TEMP on 06-25-2022 Protein [Mass/Vol] 6.0 g/dL 6.1-7.9 [facility] RBC Auto (Bld) [#/Vol]Ordere d By: PROVIDER TEMP on 06-25-2022 RBC (Bld) [#/Vol] 3.14 10*6/uL 3.60-5.00 [facility] Serum or plasma alanine cox otransferase measurement without P-5'-P (enzymatic activiOrdered By: PROVIDER TEMP on 06-25-2022 ALT No additional P-5'-P [Catalytic activity/Vol] 10 U/L 10-60 [facility] Serum or plasma albumin/glob ulin mass ratioOrdered By: PROVIDER TEMP on 06-25-2022 Albumin/Globulin [Mass ratio] 0.8 {ratio} [facility] Serum or plasma alkaline sam sphatase measurement (enzymatic activity/volume)Ordered By: PROVIDER TEMP on 06-25-2022 ALP [Catalytic activity/Vol] 77 U/L 32-92 [facility] Serum or plasma anion gap de terminationOrdered By: PROVIDER TEMP on 06-25-2022 Anion gap [Moles/Vol] 15.1 mmol/L 6.0-15.0 [facility] Serum or plasma aspartate am inotransferase measurement (enzymatic activity/volume)Ordered By: PROVIDER TEMP on 06-25-2022 AST [Catalytic activity/Vol] 20 U/L 10-42 [facility] Serum or plasma calcium katie urement (mass/volume)Ordered By: PROVIDER TEMP on 06-25-2022 Calcium [Mass/Vol] 9.3 mg/dL 8.2-10.2 [facility] Serum or plasma chloride victorino surement (moles/volume)Ordered By: PROVIDER TEMP on 06-25-2022 Chloride [Moles/Vol] 107 mmol/L 95-114 [facility] Serum or plasma glucose katie urement (mass/volume)Ordered By: PROVIDER TEMP on 06-25-2022 Glucose [Mass/Vol] 72 mg/dL 70-100 [facility] Comment on above: ADA recommended refe rence rangeRandom Glucose Reference Range is dependent on time and content of last meal. Glucose of more than 200 mg/dL in a nonstressed, ambulatory subject supports the diagnosis of Diabetes Mellitus. Serum or plasma potassium me asurement (moles/volume)Ordered By: PROVIDER TEMP on 06-25-2022 Potassium [Moles/Vol] 3.6 mmol/L 3.5-5.1 [facility] Serum or plasma sodium measu rement (moles/volume)Ordered By: PROVIDER TEMP on 06-25-2022 Sodium [Moles/Vol] 137 mmol/L 136-146 [facility] Serum or plasma total biliru bin measurement (mass/volume)Ordered By: PROVIDER TEMP on 06-25-2022 Bilirubin [Mass/Vol] 0.7 mg/dL 0.3-1.2 [facility] Serum or plasma total carbon dioxide measurement (moles/volume)Ordered By: PROVIDER TEMP on 06-25-2022 CO2 [Moles/Vol] 18.5 mmol/L 22.0-30.0 [facility] Serum or plasma urea nitroge n measurement (mass/volume)Ordered By: PROVIDER TEMP on 06-25-2022 Urea nitrogen [Mass/Vol] 3 mg/dL 9-23 [facility] Specific gravity Auto test s trip (U) [Rel density]Ordered By: Michael Cerda on 06-25-2022 Specific gravity (U) [Rel density] 1.016 1.001-1.030 [facility] Squamous epithelial cells de tection in urine sediment by light microscopyOrdered By: Michael Cerda on 06-25-2022 Epithelial cells.squamous LM Ql (Urine sed) 10-19 [HPF] 0-2 [facility] Troponin I.cardiac [Mass/vol ume] in Serum or Plasma by High sensitivity methodOrdered By: Michael Cerda on 06-25-2022 Troponin I.cardiac High sensitivity method [Mass/Vol] 6 pg/mL 0-15 [facility] Urine bacteria detection by automated methodOrdered By: Michael Cerda on 06-25-2022 Bacteria Auto Ql (U) 1+ None Seen [facility] Urine clarity by refractomet ry automatedOrdered By: Michael Cerda on 06-25-2022 Clarity Refractometry automated (U) Turbid Clear [facility] Urine culture routineOrdered By: Michael Cerda on 06-25-2022 Bacteria identified Cx Nom (U) 2 Days [facility] Urine glucose measurement by automated test strip (mass/volume)Ordered By: Michael Cerda on 06-25-2022 Glucose Auto test strip (U) [Mass/Vol] Normal mg/dL Normal [facility] Urine hemoglobin detection b y automated test stripOrdered By: Michael Cerda on 06-25-2022 Hemoglobin Auto test strip Ql (U) Trace Negative [facility] Urine leukocyte esterase det ection by automated test stripOrdered By: Michael Cerda on 06-25-2022 Leukocyte esterase Auto test strip Ql (U) 4+ Negative [facility] Urobilinogen Auto test strip (U) [Mass/Vol]Ordered By: Michael Cerda on 06-25-2022 Urobilinogen (U) [Mass/Vol] Normal mg/dL Normal [facility] WBC Auto (Bld) [#/Vol]Ordere d By: CIERA CARABALLO on 06-25-2022 WBC (Bld) [#/Vol] 10.5 10*3/uL 3.8-11.6 [facility] Yeast detection in urine sed iment by light microscopyOrdered By: Michael Cerda on 06-25-2022 Yeast LM Ql (Urine sed) None seen [HPF] None Seen [facility] pH Auto test strip (U)Ordere d By: Michael Cerda on 06-25-2022 pH (U) 6.0 [pH] 5.0-9.0 [facility] GLUCOSE BLOODon 04-28-2022 Glucose [Mass/Vol] 83 mg/dL Normal 74-106 [facility] Comment on above: Performed By: #### G MINERVA, LIPID #### [facility] [address] [place] [address] Dr. Kinjal Rivers LIPID PROFILEon 04-28-2022 CHOL-HDL RATIO NORM SEE BELOW Normal [facility] Comment on above: Result Comment: 3.3 - 4.4 LOW RISK 4.4 - 7.1 AVERAGE RISK 7.1 - 11.0 MODERATE RISK >11.0 HIGH RISK Performed By: #### G MINERVA, LIPID #### [facility] [address] [place], [place] [address] Dr. Kinjal Rivers Cholesterol [Mass/Vol] 232 mg/dL Critically high <=200 [facility] Comment on above: Performed By: #### G MINERVA, LIPID #### [facility] [address] [place] [address] [address] Kinjal Rivers Cholesterol in HDL [Mass/Vol] 92 mg/dL Critically high 40-60 [facility] Comment on above: Performed By: #### G MINERVA, LIPID #### [facility] [address] [place] [address] [address] Kinjal Rivers Cholesterol in LDL [Mass/Vol] 115.2 mg/dL Normal [facility] Comment on above: Performed By: #### G MINERVA, LIPID #### [facility] [address] [place] [address] [address] Kinjal Rivers Cholesterol.total/Chol esterol in HDL [Mass ratio] 2.5 {ratio} Normal [facility] Comment on above: Performed By: #### G MINERVA, LIPID #### [facility] [address] [place] [address] [address] Kinjal Rivers HDL NORMAL > or = 60 mg/dl - LO W CARDIOVASCULAR RISK <40 mg/dl - HIGH CARDIOVASCULAR RISK Normal [facility] Comment on above: Performed By: #### G MINERVA, LIPID #### [facility] [address] [place] [address] [address] Kinjal Rivesr LDL CALC NORMAL SEE BELOW Normal [facility] Comment on above: Result Comment: <100 mg/dl OPTIMAL 100 - 129 mg/dl NEAR OR ABOVE OPTIMAL 130 - 159 mg/dl BORDERLINE HIGH 160 - 189 mg/dl HIGH >190 mg/dl VERY HIGH Performed By: #### G MINERVA, LIPID #### [facility] [address] [place] [address] [address] Kinjal Rivers Triglyceride [Mass/Vol] 124 mg/dL Normal <=150 [facility] Comment on above: Performed By: #### G MINERVA, LIPID #### [facility] [address] [place] [address] [address] Kinjal Rivers VLDL CALC 24.8 mg/dL Normal [facility] Comment on above: Performed By: #### G MINERVA, LIPID #### [facility] [address] [place] [address] [address] Kinjal Rivers Echocardiogramon 02-13-[address], [address], [place] [address] TRANSTHORACIC ECHOCARDIOGRAM REPORT Patient Name: MARICARMEN Murrieta Jocelin Physician: [id number] Tracee ANDERSON MD Study Date: 02/13/2022 Referring [id number] RITA OLIVIA Physician: MRN/PID: [id number] PCP: Viktor Sotelo Accession/Order#: [id number] Department [facility] Location: Date of : 1980 Fellow: Gender: F Nurse: Admit Date: Citizenship Instructor: Georgia Grajeda RDCS, T Height: 167.64 cm CC Report to: Weight: 102.97 kg Study Type: Echocardiogram BSA: 2.11 m2 Blood Pressure: 114 /70 mmHg Diagnosis/ICD: I47.1-Supraventricular tachycardia; R06.02-Shortness of breath; I49.5-Sick sinus syndrome Indication: Abnormal EKG-Complete Heart Block, Pacemaker, History of Syncope, Obesity, Seizure Disorder, Pt is 13 weeks Procedure/CPT: Echo Complete w Full Doppler-[id number] Study Detail: The following Echo studies were performed: 2D, M-Mode, Doppler and color flow. PHYSICIAN INTERPRETATION: Left Ventricle: Left ventricular systolic function is normal, with an estimated ejection fraction of 55-60%. There are no regional wall motion abnormalities. The left ventricular cavity size is normal. Spectral Doppler shows a normal pattern of left ventricular diastolic filling. Left Atrium: The left atrium is normal in size. Right Ventricle: The right ventricle is normal in size. There is normal right ventricular global systolic function. Right Atrium: The right atrium is normal in size. Aortic Valve: The aortic valve appears structurally normal. There is no evidence of aortic valve regurgitation. The peak instantaneous gradient of the aortic valve is 7.0 mmHg. The mean gradient of the aortic valve is 3.0 mmHg. Mitral Valve: The mitral valve is normal in structure. There is trace mitral valve regurgitation. Tricuspid Valve: The tricuspid valve is structurally normal. No evidence of tricuspid regurgitation. Pulmonic Valve: The pulmonic valve is structurally normal. There is no indication of pulmonic valve regurgitation. Pericardium: There is no pericardial effusion noted. Aorta: The aortic root is normal. CONCLUSIONS: 1. Left ventricular systolic function is normal with a 55-60% estimated ejection fraction. 2. This is a normal study. No change when compared to prior study. QUANTITATIVE DATA SUMMARY: 2D MEASUREMENTS: Normal Ranges: Ao Root d: 2.60 cm (2.0-3.7cm) LAs: 3.40 cm (2.7-4.0cm) RVIDd: 2.70 cm (0.9-3.6cm) IVSd: 0.80 cm (0.6-1.1cm) LVPWd: 0.90 cm (0.6-1.1cm) LVIDd: 4.10 cm (3.9-5.9cm) LVIDs: 2.90 cm LV Mass Index: 50.0 g/m2 LV % FS 29.3 % LV SYSTOLIC FUNCTION BY 2D PLANIMETRY (MOD): Normal Ranges: EF-A4C View: 62.2 % (>55%) LV DIASTOLIC FUNCTION: Normal Ranges: MV Peak E: 1.03 m/s (0.7-1.2 m/s) MV Peak A: 0.66 m/s (0.42-0.7 m/s) E/A Ratio: 1.56 (1.0-2.2) MV lateral e' 0.12 m/s MV medial e' 0.10 m/s E/e' Ratio: 8.50 (<8.0) MITRAL VALVE: Normal Ranges: MV Vmax: 1.11 m/s (<1.3m/s) MV peak P.9 mmHg (<5mmHg) MV mean P.0 mmHg (<48mmHg) MITRAL INSUFFICIENCY: Normal Ranges: MR Vmax: 222.00 cm/s AORTIC VALVE: Normal Ranges: AoV Vmax: 1.32 m/s (<1.7m/s) AoV Peak P.0 mmHg (<20mmHg) AoV Mean P.0 mmHg (1.7-11.5mmHg) LVOT Max Richard: 1.11 m/s (<1.1m/s) AoV VTI: 25.80 cm (18-25cm) LVOT VTI: 21.20 cm LVOT Diameter: 1.90 cm (1.8-2.4cm) AoV Area, VTI: 2.33 cm2 (2.5-5.5cm2) AoV Area,Vmax: 2.38 cm2 (2.5-4.5cm2) AoV Dimensionless Index: 0.82 TRICUSPID VALVE/RVSP: Normal Ranges: Peak TR Velocity: 2.06 m/s RV Syst Pressure: 20.0 mmHg (< 30mmHg) PULMONIC VALVE: Normal Ranges: PV Max Richard: 0.8 m/s (0.6-0.9m/s) PV Max P.9 mmHg [id number] Tracee Moore MD Electronically signed on 02/13/2022 at 5:36:08 PM Final Normal [facility] Echocardiography Please click on the link to view the study images Normal [facility] Hospital[facility]olarGreenA [employer] Work Phone: Falls Screening (Age 18+)on 02-13-2022 Fall risk assessment a) No falls within the last year [facility] [employer] Work Phone: Urine culture routineOrdered By: Raymond Oconnor on 01-22-2022 Bacteria identified Cx Nom (U) 2 Days [facility] Albumin [Mass/volume] in Ser um or PlasmaOrdered By: Raymond Oconnor on 01-20-2022 Albumin [Mass/Vol] 3.4 g/dL 3.2-5.5 [facility] Automated erythrocytes count in urine sediment (number/area)Ordered By: Raymond Oconnor on 01-20-2022 RBC Auto (Urine sed) [#/Area] 3-4 [HPF] 0-4 [facility] Automated leukocytes count i n urine sediment (number/area)Ordered By: Raymond Oconnor on 01-20-2022 WBC Auto (Urine sed) [#/Area] 20-49 [HPF] 0-4 [facility] Automated urine sediment claudia cium oxalate crystal count by microscopy (number/high powOrdered By: Raymond Oconnor on 01-20-2022 Calcium oxalate crystals LM.HPF (Urine sed) [#/Area] 4+ [HPF] [facility] Basophils Auto (Bld) [#/Vol] Ordered By: Raymond Oconnor on 01-20-2022 Basophils (Bld) [#/Vol] 0.0 10*3/uL 0.0-0.2 [facility] Basophils/100 WBC Auto (Bld) Ordered By: Raymond Oconnor on 01-20-2022 Basophils/100 WBC (Bld) 0.4 % . [facility] Bilirubin Auto test strip Ql (U)Ordered By: Raymond Oconnor on 01-20-2022 Bilirubin Ql (U) Negative Negative [facility] Blood hemoglobin measurement (mass/volume)Ordered By: Raymond Oconnor on 01-20-2022 Hemoglobin (Bld) [Mass/Vol] 10.6 g/dL 11.8-15.4 [facility] Blood leukocytes automated c ount (number/volume)Ordered By: Raymond Oconnor on 01-20-2022 WBC (Bld) [#/Vol] 6.8 10*3/uL 4.5-11.0 [facility] Creatinine and Glomerular fi ltration rate.predicted panel (S/P/Bld)Ordered By: Raymond Oconnor on 01-20-2022 Creatinine [Mass/Vol] 0.62 mg/dL 0.44-1.03 [facility] Eosinophils Auto (Bld) [#/Vo l]Ordered By: Raymond Oconnor on 01-20-2022 Eosinophils (Bld) [#/Vol] 0.1 10*3/uL 0.0-0.45 [facility] Eosinophils/100 WBC Auto (Bl d)Ordered By: Raymond Oconnor on 01-20-2022 Eosinophils/100 WBC (Bld) 1.5 % . [facility] Erythrocyte distribution wid th Auto (RBC) [Ratio]Ordered By: Raymond Oconnor on 01-20-2022 Erythrocyte distribution width (RBC) [Ratio] 18.2 % 11.9-15.3 [facility] Estimated glomerular filtrat ion rate (GFR) non- AmericanOrdered By: Raymond Oconnor on 01-20-2022 GFR/1.73 sq M.predicted among non-blacks MDRD (S/P/Bld) [Vol rate/Area] > 60 mL/Min [facility] Globulin Calc (S) [Mass/Vol] Ordered By: Raymond Oconnor on 01-20-2022 Globulin (S) [Mass/Vol] 3.1 g/dL [facility] Hematocrit Auto (Bld) [Volum e fraction]Ordered By: Raymond Oconnor on 01-20-2022 Hematocrit (Bld) [Volume fraction] 33.6 % 34.0-46.4 [facility] Ketones Auto test strip (U) [Mass/Vol]Ordered By: Raymond Oconnor on 01-20-2022 Ketones (U) [Mass/Vol] Negative Negative [facility] - Hematology and Cell countsOrdered By: Raymond Oconnor on 01-20-2022 Nucleated RBC/100 WBC (Bld) [Ratio] 0.0 % 0-0.5 [facility] - UrinalysisOrder ed By: Raymond Oconnor on 01-20-2022 Hyaline casts LM Ql (Urine sed) 0-8 [LPF] 0-8 [facility] Lymphocytes Auto (Bld) [#/Vo l]Ordered By: Raymond Oconnor on 01-20-2022 Lymphocytes (Bld) [#/Vol] 1.3 10*3/uL 1.00-4.8 [facility] Lymphocytes/100 WBC Auto (Bl d)Ordered By: Raymond Oconnor on 01-20-2022 Lymphocytes/100 WBC (Bld) 19.1 % . [facility] MCH Auto (RBC) [Entitic mass ]Ordered By: Raymond Oconnor on 01-20-2022 MCH (RBC) [Entitic mass] 26.9 pg 24.7-34.3 [facility] MCHC Auto (RBC) [Mass/Vol]Or dered By: Raymond Oconnor on 01-20-2022 MCHC (RBC) [Mass/Vol] 31.7 g/dL 32.0-35.0 [facility] MCV Auto (RBC) [Entitic vol] Ordered By: Raymond Oconnor on 01-20-2022 MCV (RBC) [Entitic vol] 84.8 fL 80-100 [facility] Monocytes Auto (Bld) [#/Vol] Ordered By: Raymond Oconnor on 01-20-2022 Monocytes (Bld) [#/Vol] 0.4 10*3/uL 0.0-0.8 [facility] Monocytes/100 WBC Auto (Bld) Ordered By: Raymond Oconnor on 01-20-2022 Monocytes/100 WBC (Bld) 6.6 % . [facility] Neutrophils Auto (Bld) [#/Vo l]Ordered By: Raymond Oconnor on 01-20-2022 Neutrophils (Bld) [#/Vol] 4.9 10*3/uL 1.8-7.7 [facility] Neutrophils/100 WBC Auto (Bl d)Ordered By: Raymond Oconnor on 01-20-2022 Neutrophils/100 WBC (Bld) 72.4 % . [facility] No Panel InformationOrdered By: Raymond Oconnor on 01-20-2022 Estimated GFR () > 60 mL/Min [facility] Comment on above: GFR estimated refere nce range: According to KDOQI guidelines, <60 ml/min/1.73m2 is sufficient to diagnose a patient with chronic kidney disease. Pharmacy Creatinine Clearance (Chem 147.20 [facility] Platelet mean volume Auto (B ld) [Entitic vol]Ordered By: Raymond Oconnor on 01-20-2022 Platelet mean volume (Bld) [Entitic vol] 8.1 fL 6.3-10.7 [facility] Platelets Auto (Bld) [#/Vol] Ordered By: Raymond Oconnor on 01-20-2022 Platelets (Bld) [#/Vol] 214 10*3/uL 150-450 [facility] Protein Auto test strip (U) [Mass/Vol]Ordered By: Raymond Oconnor on 01-20-2022 Protein (U) [Mass/Vol] Negative Negative [facility] Protein [Mass/volume] in Ser um or PlasmaOrdered By: Raymond Oconnor on 01-20-2022 Protein [Mass/Vol] 6.5 g/dL 6.1-7.9 [facility] RBC Auto (Bld) [#/Vol]Ordere d By: Raymond Oconnor on 01-20-2022 RBC (Bld) [#/Vol] 3.95 10*6/uL 3.60-5.00 [facility] Serum or plasma alanine cox otransferase measurement without P-5'-P (enzymatic activiOrdered By: Raymond Oconnor on 01-20-2022 ALT No additional P-5'-P [Catalytic activity/Vol] 10 U/L 10-60 [facility] Serum or plasma albumin/glob ulin mass ratioOrdered By: Raymond Oconnor on 01-20-2022 Albumin/Globulin [Mass ratio] 1.1 {ratio} [facility] Serum or plasma alkaline sam sphatase measurement (enzymatic activity/volume)Ordered By: Raymond Oconnor on 01-20-2022 ALP [Catalytic activity/Vol] 51 U/L 32-92 [facility] Serum or plasma aspartate am inotransferase measurement (enzymatic activity/volume)Ordered By: Raymond Oconnor on 01-20-2022 AST [Catalytic activity/Vol] 16 U/L 10-42 [facility] Serum or plasma calcium katie urement (mass/volume)Ordered By: Raymond Oconnor on 01-20-2022 Calcium [Mass/Vol] 9.4 mg/dL 8.2-10.2 [facility] Serum or plasma chloride victorino surement (moles/volume)Ordered By: Raymond Oconnor on 01-20-2022 Chloride [Moles/Vol] 103 mmol/L 95-114 [facility] Serum or plasma glucose katie urement (mass/volume)Ordered By: Raymond Oconnor on 01-20-2022 Glucose [Mass/Vol] 82 mg/dL 70-100 [facility] Comment on above: ADA recommended refe rence range Random Glucose Reference Range is dependent on time and content of last meal. Glucose of more than 200 mg/dL in a nonstressed, ambulatory subject supports the diagnosis of Diabetes Mellitus. Serum or plasma potassium me asurement (moles/volume)Ordered By: Raymond Oconnor on 01-20-2022 Potassium [Moles/Vol] 4.0 mmol/L 3.5-5.1 [facility] Serum or plasma sodium measu rement (moles/volume)Ordered By: Raymond Oconnor on 01-20-2022 Sodium [Moles/Vol] 134 mmol/L 136-146 [facility] Serum or plasma total biliru bin measurement (mass/volume)Ordered By: Raymond Oconnor on 01-20-2022 Bilirubin [Mass/Vol] 0.7 mg/dL 0.3-1.2 [facility] Serum or plasma total carbon dioxide measurement (moles/volume)Ordered By: Raymond Oconnor on 01-20-2022 CO2 [Moles/Vol] 19.6 mmol/L 22.0-30.0 [facility] Serum or plasma urea nitroge n measurement (mass/volume)Ordered By: Raymond Oconnor on 01-20-2022 Urea nitrogen [Mass/Vol] 8 mg/dL 9-23 [facility] Squamous epithelial cells de tection in urine sediment by light microscopyOrdered By: Raymond Oconnor on 01-20-2022 Epithelial cells.squamous LM Ql (Urine sed) 0-1 [HPF] 0-2 [facility] Urine appearanceOrdered By: Raymond Oconnor on 01-20-2022 Appearance (U) Clear Clear [facility] Urine bacteria detection by automated methodOrdered By: Raymond Oconnor on 01-20-2022 Bacteria Auto Ql (U) None seen None Seen [facility] Urine colorOrdered By: Chela Oconnor on 01-20-2022 Color (U) Yellow Yellow [facility] Urine glucose measurement by automated test strip (mass/volume)Ordered By: Raymond Oconnor on 01-20-2022 Glucose Auto test strip (U) [Mass/Vol] Normal mg/dL Normal [facility] Urine hemoglobin detection b y automated test stripOrdered By: Raymond Oconnor on 01-20-2022 Hemoglobin Auto test strip Ql (U) Negative Negative [facility] Urine leukocyte esterase det ection by automated test stripOrdered By: Raymond Oconnor on 01-20-2022 Leukocyte esterase Auto test strip Ql (U) 2+ Negative [facility] Urine nitrite detection by a utomated test stripOrdered By: Raymond Oconnor on 01-20-2022 Nitrite Auto test strip Ql (U) Negative Negative [facility] Urine sediment crystal ident ification by light microscopyOrdered By: Raymond Oconnor on 01-20-2022 Crystals LM Nom (Urine sed) None seen [HPF] [facility] Urobilinogen Auto test strip (U) [Mass/Vol]Ordered By: Raymond Oconnor on 01-20-2022 Urobilinogen (U) [Mass/Vol] Normal mg/dL Normal [facility] pH Auto test strip (U)Ordere d By: Raymond Oconnor on 01-20-2022 pH (U) 1.030 [pH] 1.001-1.030 [facility] pH (U) 6.0 [pH] 5.0-9.0 [facility] Tobacco Screening.on 022 Fall risk assessment a) No falls within the last year [facility] [employer] DO Work Phone: Tobacco use status CP b) No [facility] DO Work Phone: Tobacco Screening. Yes [facility] [employer] DO Work Phone: Serum or plasma beta choriog onadotropin measurement (units/volume)Ordered By: Eduardo Swain on 12-16-2021 HCG.beta subunit Qn 3876.00 m[IU]/mL [facility] Comment on above: Approximate Approxim ate hCG Gestational Age Range (mIU/ml) (weeks) 0.2-1 5-50 1-2 50-500 2-3 100-5,000 3-4 500-10,000 4-5 1,000-50,000 5-6 10,000-100,000 6-8 15,000-200,000 8-12 10,000-100,000 Cholesterol [Mass/volume] in Serum or PlasmaOrdered By: Eduardo Swain on 12-11-2021 Cholesterol [Mass/Vol] 190 mg/dL 140-200 [facility] Comment on above: Chol less than 200 m g/dl low risk Chol 201-239 mg/dl borderline risk Chol 240 mg/dl and greater high risk Cholesterol in LDL Calc [Mas s/Vol]Ordered By: Eduardo Swain on 12-11-2021 Cholesterol in LDL [Mass/Vol] 103 mg/dL 0-100 [facility] Comment on above: LDL ATP III CLASSIFI CATION LDL less than 100 mg/dL Optimal LDL 100-129 mg/dL Near or above optimal LDL 130-159 mg/dL Borderline high LDL 160-189 mg/dL High LDL greater than 189 mg/dL Very high Cholesterol in VLDL Calc [Ma ss/Vol]Ordered By: Eduardo Swain on 12-11-2021 Cholesterol in VLDL [Mass/Vol] 9 mg/dL [facility] No Panel InformationOrdered By: Eduardo Swain on 12-11-2021 25-Hydroxy Vitamin D Total 40.6 ng/mL 30-100 [facility] Comment on above: VITAMIN D STATUS 25( [place])VITAMIN D RANGE (ng/mL) Deficient <20 Insufficient 20 to <30 Sufficient 30 to 100 Reference: Franklyn MF,Benjamin NC, Andreina MARQUEZ, et al. Evaluation,treatment, and prevention of vitamin D deficiency; an Endocrine Society clinical practice guideline. JCEM. 2010; 96(7):1911-30. Serum or plasma high density lipoprotein (HDL) cholesterol measurementOrdered By: Eduardo Swain on 12-11-2021 Cholesterol in HDL [Mass/Vol] 78 mg/dL 35-85 [facility] Comment on above: HDL CHOL ATP-III CLA SSIFICATION Cardiovascular Risk HDL > or equal to 60 mg/dL LOW HDL < 40 mg/dL HIGH Serum or plasma total choles terol/high density lipoprotein (HDL) cholesterol mass ratOrdered By: Eduardo wSain on 12-11-2021 Cholesterol.total/Chol esterol in HDL [Mass ratio] 2.4 {ratio} <5.0 [facility] TSH DL <= 0.005 mIU/L QnOrde red By: Eduardo Swain on 12-11-2021 TSH Qn 2.40 m[IU]/L 0.45-5.33 [facility] Triglyceride [Mass/volume] i n Serum or PlasmaOrdered By: Eduardo Swain on 12-11-2021 Triglyceride [Mass/Vol] 47 mg/dL 35-149 [facility] Comment on above: TRIG ATP III CLASSIF ICATION TRIG less than 150 mg/dL Normal TRIG 150-199 mg/dL Borderline high TRIG 200-500 mg/dL High TRIG greater than 500 mg/dL Very high Standard traceable to the Center for Disease Conrtrol and Prevention (CDC) test method. Serum or plasma beta choriog onadotropin measurement (units/volume)Ordered By: Eduardo Swain on 12-10-2021 HCG.beta subunit Qn 315.21 m[IU]/mL [facility] Comment on above: Approximate Approxim ate hCG Gestational Age Range (mIU/ml) (weeks) 0.2-1 5-50 1-2 50-500 2-3 100-5,000 3-4 500-10,000 4-5 1,000-50,000 5-6 10,000-100,000 6-8 15,000-200,000 8-12 10,000-100,000 Urine culture routineOrdered By: Cornell Mcnair on 12-10-2021 Bacteria identified Cx Nom (U) Strep. agalactiae Grp B [facility] Amphetamine Screen Ql (U)Ord ered By: Cornell Mcnair on 12-08-2021 Amphetamines Ql (U) Negative Negative [facility] Automated erythrocytes count in urine sediment (number/area)Ordered By: Cornell Mcnair on 12-08-2021 RBC Auto (Urine sed) [#/Area] 10-19 [HPF] 0-4 [facility] Automated leukocytes count i n urine sediment (number/area)Ordered By: Cornell Mcnair on 12-08-2021 WBC Auto (Urine sed) [#/Area] 50-100 [HPF] 0-4 [facility] Automated urine hyaline cast s count (number/volume)Ordered By: Cornell Mcnair on 12-08-2021 Hyaline casts Auto (U) [#/Vol] 0-1 [LPF] 0-1 [facility] Automated urine sediment claudia cium oxalate crystal count by microscopy (number/high powOrdered By: Cornell Mcnair on 12-08-2021 Calcium oxalate crystals LM.HPF (Urine sed) [#/Area] 3+ [HPF] [facility] Barbiturates [Presence] in U rineOrdered By: Cornell Mcnair on 12-08-2021 Barbiturates Ql (U) Negative Negative [facility] Basophils Auto (Bld) [#/Vol] Ordered By: Cornell Mcnair on 12-08-2021 Basophils (Bld) [#/Vol] 0.0 10*3/uL 0.0-0.2 [facility] Basophils/100 WBC Auto (Bld) Ordered By: Cornell Mcnair on 12-08-2021 Basophils/100 WBC (Bld) 0.6 % . [facility] Benzodiazepines [Presence] i n UrineOrdered By: Cornell Mcnair on 12-08-2021 Benzodiazepines Ql (U) Negative Negative [facility] Bilirubin Test strip Ql (U)O rdered By: Cornell Mcnair on 12-08-2021 Bilirubin Ql (U) Negative Negative [facility] Blood hemoglobin measurement (mass/volume)Ordered By: Cornell Mcnair on 12-08-2021 Hemoglobin (Bld) [Mass/Vol] 9.6 g/dL 11.8-15.4 [facility] Blood leukocytes automated c ount (number/volume)Ordered By: Cornell Mcnair on 12-08-2021 WBC (Bld) [#/Vol] 6.9 10*3/uL 4.5-11.0 [facility] Body fluid albumin measureme nt (mass/volume)Ordered By: Cornell Mcnair on 12-08-2021 Albumin (Body fld) [Mass/Vol] 3.4 g/dL 3.2-5.5 [facility] COVID-19 SOFIAOrdered By: Julia Mcnair on 12-08-2021 SARS-CoV+SARS-CoV-2 (COVID-19) Ag IA.rapid Ql (Resp) Negative Negative [facility] Comment on above: This is a duplicate Roshni SARS Antigen (DIEUDONNE) result to be used for statistical tracking purpose only. Cannabinoids [Presence] in U rine by Screen methodOrdered By: Cornell Mcnair on 12-08-2021 Cannabinoids Screen Ql (U) Negative Negative [facility] Comment on above: These are unconfirme d results and should not be used for legal purposes. Drug Cut-Off Concentration: AMPH 1000 ng/mL BOO 200 ng/mL HELGA 200 ng/mL COCM 300 ng/mL OP 300 ng/mL PCP 25 ng/mL THC 20 ng/mL Casts typing in urine sedime nt by light microscopyOrdered By: Cornell Mcnair on 12-08-2021 Casts LM Nom (Urine sed) None seen [LPF] None Seen [facility] Color Auto (U)Ordered By: Julia Mcnair on 12-08-2021 Color (U) Yellow Yellow [facility] Creatinine and Glomerular fi ltration rate.predicted panel (S/P/Bld)Ordered By: Cornell Mcnair on 12-08-2021 Creatinine [Mass/Vol] 0.78 mg/dL 0.44-1.03 [facility] Eosinophils Auto (Bld) [#/Vo l]Ordered By: Cornell Mcniar on 12-08-2021 Eosinophils (Bld) [#/Vol] 0.2 10*3/uL 0.0-0.45 [facility] Eosinophils/100 WBC Auto (Bl d)Ordered By: Cornell Mcnair on 12-08-2021 Eosinophils/100 WBC (Bld) 2.6 % . [facility] Erythrocyte distribution wid th Auto (RBC) [Ratio]Ordered By: Cornell Mcnair on 12-08-2021 Erythrocyte distribution width (RBC) [Ratio] 15.5 % 11.9-15.3 [facility] Estimated glomerular filtrat ion rate (GFR) non- AmericanOrdered By: Cornell Mcnair on 12-08-2021 GFR/1.73 sq M.predicted among non-blacks MDRD (S/P/Bld) [Vol rate/Area] > 60 mL/Min [facility] Globulin Calc (S) [Mass/Vol] Ordered By: Cornell Mcnair on 12-08-2021 Globulin (S) [Mass/Vol] 3.1 g/dL [facility] HCG ( test) IA.rapi d Ql (U)Ordered By: Cornell Mcnair on 12-08-2021 HCG ( test) Ql (U) Positive [facility] Hematocrit Auto (Bld) [Volum e fraction]Ordered By: Cornell Mcnair on 12-08-2021 Hematocrit (Bld) [Volume fraction] 30.1 % 34.0-46.4 [facility] Ketones Auto test strip (U) [Mass/Vol]Ordered By: Cornell Mcnair on 12-08-2021 Ketones (U) [Mass/Vol] Trace Negative [facility] - Drug toxicology Ordered By: Cornell Mcnair on 12-08-2021 Opiates Ql (U) Negative Negative [facility] - Hematology and Cell countsOrdered By: Cornell Mcnair on 12-08-2021 Nucleated RBC/100 WBC (Bld) [Ratio] 0.0 % 0-0.5 [facility] Lymphocytes Auto (Bld) [#/Vo l]Ordered By: Cornell Mcnair on 12-08-2021 Lymphocytes (Bld) [#/Vol] 1.5 10*3/uL 1.00-4.8 [facility] Lymphocytes/100 WBC Auto (Bl d)Ordered By: Cornell Mcnair on 12-08-2021 Lymphocytes/100 WBC (Bld) 22.3 % . [facility] MCH Auto (RBC) [Entitic mass ]Ordered By: Cornell Mcnair on 12-08-2021 MCH (RBC) [Entitic mass] 26.3 pg 24.7-34.3 [facility] MCHC Auto (RBC) [Mass/Vol]Or dered By: Cornell Mcnair on 12-08-2021 MCHC (RBC) [Mass/Vol] 32.0 g/dL 32.0-35.0 [facility] MCV Auto (RBC) [Entitic vol] Ordered By: Cornell Mcnair on 12-08-2021 MCV (RBC) [Entitic vol] 82.4 fL 80-100 [facility] Monocytes Auto (Bld) [#/Vol] Ordered By: Cornell Mcnair on 12-08-2021 Monocytes (Bld) [#/Vol] 0.4 10*3/uL 0.0-0.8 [facility] Monocytes/100 WBC Auto (Bld) Ordered By: Cornell Mcnair on 12-08-2021 Monocytes/100 WBC (Bld) 6.5 % . [facility] Mucus LM Ql (Urine sed)Order ed By: Cornell Mcnair on 12-08-2021 Mucus Ql (Urine sed) 2+ [LPF] [facility] Neutrophils Auto (Bld) [#/Vo l]Ordered By: Cornell Mcnair on 12-08-2021 Neutrophils (Bld) [#/Vol] 4.7 10*3/uL 1.8-7.7 [facility] Neutrophils/100 WBC Auto (Bl d)Ordered By: Cornell Mcnair on 12-08-2021 Neutrophils/100 WBC (Bld) 68.0 % . [facility] Nitrite Test strip Ql (U)Ord ered By: Cornell Mcnair on 12-08-2021 Nitrite Ql (U) Negative Negative [facility] No Panel InformationOrdered By: Cornell Mcnair on 12-08-2021 Estimated GFR () > 60 mL/Min [facility] Comment on above: GFR estimated refere nce range: According to KDOQI guidelines, <60 ml/min/1.73m2 is sufficient to diagnose a patient with chronic kidney disease. Pharmacy Creatinine Clearance (Chem 115.38 [facility] SARS Antigen (LFIA) [facility] Phencyclidine Screen Ql (U)O rdered By: Cornell Mcnair on 12-08-2021 Phencyclidine Ql (U) Negative Negative [facility] Platelet mean volume Auto (B ld) [Entitic vol]Ordered By: Cornell Mcnair on 12-08-2021 Platelet mean volume (Bld) [Entitic vol] 7.2 fL 6.3-10.7 [facility] Platelets Auto (Bld) [#/Vol] Ordered By: Cornell Mcnair on 12-08-2021 Platelets (Bld) [#/Vol] 229 10*3/uL 150-450 [facility] Protein Auto test strip (U) [Mass/Vol]Ordered By: Cornell Mcnair on 12-08-2021 Protein (U) [Mass/Vol] Negative Negative [facility] Protein [Mass/volume] in Ser um or PlasmaOrdered By: Cornell Mcnair on 12-08-2021 Protein [Mass/Vol] 6.5 g/dL 6.1-7.9 [facility] RBC Auto (Bld) [#/Vol]Ordere d By: Cornell Mcnair on 12-08-2021 RBC (Bld) [#/Vol] 3.65 10*6/uL 3.60-5.00 [facility] Serum or plasma alanine cox otransferase measurement without P-5'-P (enzymatic activiOrdered By: Cornell Mcnair on 12-08-2021 ALT No additional P-5'-P [Catalytic activity/Vol] 11 U/L 10-60 [facility] Serum or plasma albumin/glob ulin mass ratioOrdered By: Cornell Mcnair on 12-08-2021 Albumin/Globulin [Mass ratio] 1.1 {ratio} [facility] Serum or plasma alkaline sam sphatase measurement (enzymatic activity/volume)Ordered By: Cornell Mcnair on 12-08-2021 ALP [Catalytic activity/Vol] 64 U/L 32-92 [facility] Serum or plasma aspartate am inotransferase measurement (enzymatic activity/volume)Ordered By: Cornell Mcnair on 12-08-2021 AST [Catalytic activity/Vol] 22 U/L 10-42 [facility] Serum or plasma calcium katie urement (mass/volume)Ordered By: Cornell Mcnair on 12-08-2021 Calcium [Mass/Vol] 8.9 mg/dL 8.2-10.2 [facility] Serum or plasma chloride victorino surement (moles/volume)Ordered By: Cornell Mcnair on 12-08-2021 Chloride [Moles/Vol] 106 mmol/L 95-114 [facility] Serum or plasma ethanol katie urement (mass/volume)Ordered By: Cornell Mcnair on 12-08-2021 Ethanol [Mass/Vol] mg/dL [facility] Ethanol [Mass/Vol] TNP [facility] Comment on above: Test not performed Serum or plasma glucose katie urement (mass/volume)Ordered By: Cornell Mcnair on 12-08-2021 Glucose [Mass/Vol] 86 mg/dL 70-100 [facility] Comment on above: ADA recommended refe rence range Random Glucose Reference Range is dependent on time and content of last meal. Glucose of more than 200 mg/dL in a nonstressed, ambulatory subject supports the diagnosis of Diabetes Mellitus. Serum or plasma potassium me asurement (moles/volume)Ordered By: Cornell Mcnair on 12-08-2021 Potassium [Moles/Vol] 3.9 mmol/L 3.5-5.1 [facility] Serum or plasma sodium measu rement (moles/volume)Ordered By: Cornell Mcnair on 12-08-2021 Sodium [Moles/Vol] 137 mmol/L 136-146 [facility] Serum or plasma total biliru bin measurement (mass/volume)Ordered By: Cornell Mcnair on 12-08-2021 Bilirubin [Mass/Vol] 0.4 mg/dL 0.3-1.2 [facility] Serum or plasma total carbon dioxide measurement (moles/volume)Ordered By: Cornell Mcnair on 12-08-2021 CO2 [Moles/Vol] 23.8 mmol/L 22.0-30.0 [facility] Serum or plasma urea nitroge n measurement (mass/volume)Ordered By: Cornell Mcnair on 12-08-2021 Urea nitrogen [Mass/Vol] 9 mg/dL 9- [facility] Specific gravity Auto test s trip (U) [Rel density]Ordered By: Cornell Mcnair on 12-08-2021 Specific gravity (U) [Rel density] 1.024 1.001-1.030 [facility] Squamous epithelial cells de tection in urine sediment by light microscopyOrdered By: Cornell Mcnair on 12-08-2021 Epithelial cells.squamous LM Ql (Urine sed) 10- [HPF] 0-2 [facility] Urine bacteria detection by automated methodOrdered By: Cornell Mcnair on 12-08-2021 Bacteria Auto Ql (U) None seen None Seen [facility] Urine clarity by refractomet ry automatedOrdered By: Cornell Mcnair on 12-08-2021 Clarity Refractometry automated (U) Cloudy Clear [facility] Urine cocaine detectionOrder ed By: Cornell Mcnair on 12-08-2021 Cocaine Ql (U) Negative Negative [facility] Urine glucose measurement by automated test strip (mass/volume)Ordered By: Cornell Mcnair on 12-08-2021 Glucose Auto test strip (U) [Mass/Vol] Normal mg/dL Normal [facility] Urine hemoglobin detection b y automated test stripOrdered By: Cornell Mcnair on 12-08-2021 Hemoglobin Auto test strip Ql (U) Negative Negative [facility] Urine leukocyte esterase det ection by automated test stripOrdered By: Cornell Mcnair on 12-08-2021 Leukocyte esterase Auto test strip Ql (U) 3+ Negative [facility] Urobilinogen Auto test strip (U) [Mass/Vol]Ordered By: Cornell Mcniar on 12-08-2021 Urobilinogen (U) [Mass/Vol] Normal mg/dL Normal [facility] Yeast detection in urine sed iment by light microscopyOrdered By: Cornell Mcnair on 12-08-2021 Yeast LM Ql (Urine sed) 1+ [HPF] None Seen [facility] pH Auto test strip (U)Ordere d By: Cornell Mcnair on 12-08-2021 pH (U) 5.0 [pH] 5.0-9.0 [facility] CNPNon 09-18-2021 CNPN Telephone (GASTSP) ----- MARICARMEN ANDERSON ([id number]) [address] [facility] Date Time Provider Department 09/18/21 CLEMENTE ENG [facility] During your visit today, we recorded the following information about you: Uyen Dela Cruz 09/18/2021 9:54 AM Signed patient calling in with complaint of abdominal pain, swelling abdomen, dehydration and vomiting. Patient has not seen you since October 2020. Patient has been identified by name and birthdate.Yes Duration of symptoms: few days Person calling: self Call patient at: at home [phone] (home) [phone] (cell) Was an appointment scheduled: No Closing statement: Symptom Call: Thank you for calling [facility], your call is very important. A nurse will call in approximately 2-4 hours during business hours. If this is an emergency, please contact 911. Uyen Waterman RN 09/18/2021 11:16 AM Signed Called and spoke with patient. She states in the last 3-4 wks she has been having dehydration issues. She has been having nausea and vomiting a lot. Yesterday she woke up and felt her abdomen was swollen. The swelling went down to her legs. She went to the ER last night and blood clot was ruled out. She last saw Dr. Eng in 10/2020. She last saw Dr. Gibson in 08/2018. She states she will go to a [facility] ER because local ER doesn't know what to do with her. Allergies As of Date: 09/18/2021 Noted Allergy Reaction DILAUDID (HYDROMORPHONE (BULK)) 03/28/2019 9 - Itching Date Reviewed: 11/12/2020 Reviewed by: Wisam Carvajal RN - Fully Assessed Reason for Visit: Patient Update [1234] Prescriptions as of 09/19/2021 - gabapentin (NEURONTIN) 250 mg/5 mL (5 mL) oral solution Take 6 mL by mouth every 8 hours for 90 days. - fremanezumab-vfrm (AJOVY AUTOINJECTOR) 225 mg/1.5 mL auto-injector Inject 225 mg subcutaneously once every month. Do not shake. - LORazepam (ATIVAN) 0.5 mg Take 1 mg by mouth daily at bedtime. - linaclotide (LINZESS) 145 mcg capsule Take 1 capsule by mouth once daily. - acetaZOLAMIDE (DIAMOX) 250 mg tablet Take 250 mg by mouth twice daily. - ubrogepant (UBRELVY) 100 mg tablet Take 100 mg by mouth as needed. - cholecalciferol (VITAMIN D3) 1,000 unit tab tablet Take 1,000 Units by mouth twice daily. - acetaminophen (TYLENOL) 500 mg/15 mL liqd Take 500 mg by mouth every 8 hours as needed. - ondansetron orally disintegrating (ZOFRAN ODT) 4 mg disintegrating tablet Take 1 tablet by mouth every 4 hours as needed for Nausea/Vomiting. - tiZANidine (ZANAFLEX) 4 mg tablet Take 4 mg by mouth daily at bedtime. - promethazine (PHENERGAN) 25 mg suppository 1 Suppository by RECTAL route every 6 hours as needed. 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] 10/20/2013 Anticoagulation management encounter [Z51.81, Z*10/20/2013 Acute embolism and thrombosis of superficial ve*10/20/2013 Arm edema [R60.0] 10/20/2013 Constipated [K59.00] 10/22/2013 Hypokalemia [E87.6] 10/22/2013 10/24/2013 Vision abnormalities [H53.9] 10/24/2013 Anemia [D64.9] 10/24/2013 Eosinophilic esophagitis [K20.0] 11/10/2013 Esophagitis [K20.90] 11/24/2013 Gastroparesis [K31.84] 05/20/2018 Obesity, Class III, BMI >= 40 [E66.01] 07/22/2018 Intractable nausea and vomiting [R11.2] 08/15/2018 Mild protein-calorie malnutrition (HCC) [E44.1] 08/18/2018 Nausea AND vomiting [R11.2] 10/13/2018 10/15/2018 Nausea [R11.0] 10/21/2018 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, 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]11/02/2018 GERD (gastroesophageal reflux disease) [K21.9] S/P partial gastrectomy [Z90.3] 12/07/2018 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] 12/07/2018 Dehydration [E86.0] 12/24/2018 Acute alteration in mental status [R41.82] 03/11/2019 Altered behavior [R46.89] 03/11/2019 03/29/2019 Headache in front of head [R51.9] 03/12/2019 03/13/2019 Headache [R51.9] 03/27/2019 03/29/2019 Syncope [R55] 03/28/2019 03/29/2019 Chiari I malformation (HCC) [G93.5] 03/28/2019 Syncope [R55] 04/07/2019 08/15/2019 Headache [R51.9] 04/19/2019 Obesity, Class II, BMI 35-39.9 [E66.9] 04/21/2019 Dislodged jejunostomy tube [T85.528A] 05/17/2019 05/18/2019 Nausea AND vomiting [R11.2] 06/07/2019 06/09/2019 Malfunction of jejunostomy tube (HCC) [K94.13] 07/10/2019 Abdominal pain [R10.9] 10/23/2019 Non-intractable vomiting with nausea [R11.2] 05/25/2020 Flank pain [R10.9] 11/09/2020 Encounter Status:Closed by KATHI WATERMAN RN on 09/18/21 Normal [facility] MRI CERVICAL SPINE WO IVCONo n 11-13-2020 MRI CERVICAL SPINE WO IVCON * * *Final Report* * * DATE OF EXAM: Nov 13 2020 2:40PM QBM [id number] - MRI CERVICAL SPINE WO IVCON / PROCEDURE REASON: Chiari I malformation (HCC) * * * * Physician Interpretation * * * * EXAMINATION: MRI CERVICAL SPINE WO IVCON CLINICAL HISTORY: Chiari I malformation TECHNIQUE: Routine cervical spine MR protocol without gadolinium with CSF flow. MQ: [id number] COMPARISON: 05/13/2019. RESULT: Counting reference: Craniocervical junction. Anatomic Variants: None. Localizer images: No additional findings. Alignment: Cervicothoracic levoscoliosis with apex at T1. Craniocervical junction: The cerebellar tonsils extend 6-7 mm below the foramen magnum, consistent with Chiari I malformation. Cord: The visualized cord is within normal limits of signal intensity and morphology. No syrinx. Bone marrow signal/fracture: No evidence of pathologic marrow infiltration. No evidence of prior fracture. Discs: Annular fissures at C4-C5 and C5-C6 without significant loss of disc height. Cervical soft tissues: The paraspinal soft tissues are within normal limits. C2-C3: Canal and foramina are patent. C3-C4: Canal and foramina are patent. C4-C5: Disc osteophyte complex without significant spinal canal stenosis or neural foraminal narrowing. C5-C6: Disc osteophyte complex with mild canal narrowing without significant foraminal stenosis. C6-C7: Canal and foramina are patent. Disc degeneration with disc osteophyte complex noted. C7-T1: Canal and foramina are patent. Upper thoracic canal and foramina are patent. CSF flow: CSF flow images are severely marred due to motion. Within limitations, there appears to be dampened flow dorsal to the cord compared to the CSF flow ventral to the cord. IMPRESSION: Chiari I malformation with dampened CSF flow dorsal to the cervical cord within limitations of motion. No syrinx. Mild cervical spondylosis without high-grade canal narrowing, cord compression, or abnormal cord signal. Anatomic Variant: None. Assume 7 cervical vertebrae with counting from the craniocervical junction. 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 Date/Time: Nov 13 2020 2:41P Dictated by : KURT MALIN MD This examination was interpreted and the report reviewed and electronically signed by: DHRUV KINGSLEY MD on Nov 13 2020 3:33PM EST [id number] Normal [facility] MRI KIDNEY WO/W IVCONon 10-21 MRI KIDNEY WO/W IVCON * * *Final Report* * * DATE OF EXAM: Nov 13 2020 3:11PM QBM 0721 - MRI KIDNEY WO/W IVCON / PROCEDURE REASON: Other specified disorders of kidney and ureter * * * * Physician Interpretation * * * * EXAMINATION: MRI ABDOMEN WITHOUT AND WITH IV CONTRAST CLINICAL HISTORY: Follow-up of previously reported subcentimeter left renal cortical lesion. TECHNIQUE: A renal MRI was performed on a 1.5T MR system utilizing the torso phased-array coil. Pulse sequences included: axial precontrast T1 weighted in- and acl-ph-oxqcy, axial and coronal HASTE, axial DWI with creation of ADC map; axial and coronal T1-VIBE before and after the administration of intravenous gadolinium chelate. Multiple post processing techniques were performed. MQ: [id number] Contrast: Central IV administration of 20 ml of Dotarem COMPARISON: CTA abdomen and pelvis 11/09/2020, CT 05/27/2020, 05/16/2019. RESULT: Kidneys, adrenals and ureters: Right kidney: No suspicious or enhancing lesions. Right renal vasculature - Arterial: single. No early branch (< 1cm). - Venous: single. Right ureter: Single ureter. No hydronephrosis. Right adrenal: No mass. Left kidney: 1.1 cm partially exophytic lesion in the posterior upper pole, correlating with priors (15:42). The lesion is somewhat difficult to characterize due to size however demonstrates partially cystic appearing intrinsic signal with peripheral wall and probable central septal enhancement postcontrast (Bosniak III). The lesion has slowly increased in size in retrospect from priors dating back to 05/16/2019, at which time was poorly defined. No suspicious or enhancing left renal lesions otherwise. Subcentimeter lower pole cyst. Left renal vasculature - Arterial: Two. No early branch (< 1cm). - Venous: conventional, anterior to the aorta. Left ureter: Single ureter. No hydronephrosis. Left adrenal: No mass. Retroperitoneal lymphadenopathy and IV involvement: None Abdomen: Liver: Normal morphology. No new or suspicious lesions. Biliary: No bile duct dilation. Cholecystectomy. Spleen: No mass. No splenomegaly. Pancreas: No mass or duct dilation. GI tract: Status post Elaine-en-Y gastric bypass. Small hiatal hernia. No wall thickening, dilation, or obstruction of the included bowel. Linear soft tissue thickening and enhancement in the left ventral abdominal wall, likely chronic granulation tissue related to prior jejunostomy. Lymph nodes (other): No abdominal lymphadenopathy. Mesentery/Peritoneum: No ascites or organized fluid collection. Vasculature: The celiac axis and SMA are patent. The portal vein and branches, splenic vein, SMV, and hepatic veins are patent. No abdominal aortic aneurysm. IMPRESSION: ENHANCING 1.1 CM POSTERIOR LEFT UPPER POLE RENAL CORTICAL LESION, SLOWLY INCREASING IN SIZE FROM RECENT PRIORS DETAILED (BOSNIAK III). NO SUSPICIOUS OR ENHANCING RENAL LESIONS OTHERWISE. Industrial Machine Operator: LISA Transcribe Date/Time: Nov 13 2020 3:28P Dictated by : CHAO RODRIGUEZ MD This examination was interpreted and the report reviewed and electronically signed by: NACHO BARONE DO on Nov 13 2020 7:26PM EST [id number] Normal [facility] XR CHEST 2V FRONTAL/LATon XR CHEST 2V FRONTAL/LAT * * *Final Report* * * DATE OF EXAM: Nov 13 2020 10:25AM JIX [id number] - XR CHEST 2V FRONTAL/LAT / PROCEDURE REASON: Presence of cardiac pacemaker * * * * Physician Interpretation * * * * EXAMINATION: CHEST RADIOGRAPH (2 VIEW FRONTAL and LATERAL) CLINICAL HISTORY: Presence of cardiac pacemaker MQ: [id number] EXAM DATE/TIME: 11/13/2020 10:25 AM COMPARISON: Portable AP CXR dated 11/09/2020 RESULT: Lines, tubes, and devices: The tip of the right IJ port catheter is in the upper third of the SVC. Lungs and pleura: The lungs appear clear of focal consolidation or mass. No pleural effusion or pneumothorax is identified. Cardiomediastinal silhouette: Stable cardiomediastinal silhouette. The heart size and pulmonary vascular pattern are within normal limits. The tips of transvenous pacemaker leads are in the right atrium and right ventricle. Bones and soft tissues: The patient is status post cholecystectomy. The vertebral body heights appear symmetric and well-maintained. IMPRESSION: No acute disease identified in the lungs or mediastinum. Industrial Machine Operator: LISA Transcribe Date/Time: Nov 13 2020 3:36P Dictated by : DESI MAHONEY MD This examination was interpreted and the report reviewed and electronically signed by: DESI MAHONEY MD on Nov 13 2020 3:38PM EST [id number] Normal [facility] Basic Metabolic Panlon 11-12 Anion gap [Moles/Vol] 9 mmol/L Normal 0-15 [facility] Calcium [Mass/Vol] 8.9 mg/dL Normal 8.5-10.2 [facility] Chloride [Moles/Vol] 112 mmol/L High 97-105 [facility] CO2 [Moles/Vol] 19 mmol/L Low 22-30 [facility] Creatinine [Mass/Vol] 0.73 mg/dL Normal 0.58-0.96 [facility] eGFR- Amer. >60 Normal [facility] eGFR-All Other Races >60 Normal [facility] Comment on above: Result Comment: eGFR (Estimated GFR) Units of measure: mL/min/1.73 meters squared eGFR is derived from the reexpressed MDRD Study equation using the following parameters: serum creatinine, age, gender and race. The creatinine assay has been calibrated to be traceable to IDMS. An eGFR <60 mL/min/1.73m2 for >3 months is consistent with chronic kidney disease. Refer to KDOQI guidelines for clinical interpretation. In patients with unstable renal function, e.g. those with acute kidney injury, the eGFR may not accurately reflect actual GFR. Glucose [Mass/Vol] 89 mg/dL Normal 74-99 [facility] Potassium [Moles/Vol] 3.7 mmol/L Normal 3.7-5.1 [facility] Sodium [Moles/Vol] 140 mmol/L Normal 136-144 [facility] Urea nitrogen [Mass/Vol] 21 mg/dL Normal 7-21 [facility] Blood Cultureon 11-12-2020 Bacteria identified Cx Nom (Bld) Culture Result - No growth 5 days Normal [facility] Comment on above: Performed By: #### B LCUL ####[id number] [place], [place] [phone] Bacteria identified Cx Nom (Bld) Sp. Request/Comment: - 42.85CC Culture Result - No growth 5 days Normal [facility] Comment on above: Performed By: #### B LCUL ####[id number] [place], [place] [phone] CBCon 11-12-2020 Absolute nRBC <0.01 Normal <0.01 [facility] Erythrocyte distribution width (RBC) [Ratio] 16.8 % High 11.5-15.0 [facility] Hematocrit (Bld) [Volume fraction] 28.9 % Low 36.0-46.0 [facility] Hemoglobin (Bld) [Mass/Vol] 8.5 g/dL Low 11.5-15.5 [facility] MCH 26.6 pG Normal 26.0-34.0 [facility] MCHC (RBC) [Mass/Vol] 29.4 g/dL Low 30.5-36.0 [facility] MCV (RBC) [Entitic vol] 90.6 fL Normal 80.0-100.0 [facility] Platelet mean volume (Bld) [Entitic vol] 11.6 fL Normal 9.0-12.7 [facility] Platelets (Bld) [#/Vol] 167 10*3/uL Normal 150-400 [facility] RBC (Bld) [#/Vol] 3.19 10*6/uL Low 3.90-5.20 [facility] WBC (Bld) [#/Vol] 3.88 10*3/uL Normal 3.70-11.00 [facility] CNDSon 11-12-2020 DS HNO ID: [id number] Author: Lucero Wheeler DO Service: General Surgery Author Type: Resident Type: Discharge Summary Filed: 11/12/2020 5:12 PM Note Text: ----- Attestation signed by Clemente Eng MD at 11/12/2020 6:11 PM Attending Note I evaluated the patient and personally participated in the edward components. I agree with the resident's findings and plan as documented and have discussed the case and management of the patient's care with the resident. Signature: Clemente Eng Date: 11/12/2020 Time: 6:11 PM ----- DISCHARGE SUMMARY PATIENT NAME: Maricarmen Anderson ADMISSION DATE: 11/09/2020 DISCHARGE DATE: 11/12/2020 Attending Physician: Clemente Eng MD Code Status: Full Code Highest Readmission Risk Score: 22 The 30 day readmissions risk score is derived from an internally validated risk model which evaluates patient level characteristics, utilization history, medication orders and lab results up until the day of discharge. Patients with a score of 40 or above are considered highest risk for readmission. Specific patient level drivers will be listed at the bottom of the summary. Reason for Hospitalization: Left flank pain and fevers Diagnosis: Active Problems: Flank pain POA: Yes Resolved Problems: * No resolved hospital problems. * Sepsis Ruled Out Hospital Course as Described to the Patient: You were admitted for Left flank pain and fevers. 40 year old female presented to [facility] on 11/09/2020 with fevers and left flank pain. Patient was admitted and started on gabapentin. Blood cultures were obtained from both the Mediport and peripheral stick. On 11/11/2020 blood culture from the Mediport grew MRSE. Peripheral blood had no growth. Infectious disease was consulted and repeat blood cultures were obtained. Patient was started on vancomycin. Infectious disease reviewed the patient's case and had low suspicion for a port infection, suspecting that the MRSE was a contaminant. Patient was discharged in stable condition with new prescription for gabapentin and repeat blood cultures in process to confirm no bloodstream infection. Transitions of Care Critical Issues: NA LABS AND PROCEDURES PENDING AT DISCHARGE: Test Results Not Yet Available from This Hospitalization: Please Review at Your Follow Up Appointment Order Current Status [place] PANEL BLOOD SCREEN (AK,AV,EU,FV,HL,MM,SP) In process BLOOD CULTURE DRAW (AV,EU,FV,HL,ALBERT,MM,SP) Preliminary result BLOOD CULTURE DRAW (AV,EU,FV,HL,ALBERT,MM,SP) Preliminary result Culture Results (repeat blood cultures pending) Additional Provider to Provider Information: Active Problems: Flank pain Resolved Problems: * No resolved hospital problems. * Operations During Hospitalization: None Procedures During Hospitalization: CT Scan Consulting Teams During Hospitalization: Treatment Team: Attending Provider: Clemente Eng MD Consulting: Awais Gonzalez MD Infectious Disease: Dr. Gonzalez/Dr. Gonzalez Patient Condition @ Discharge: Stable Discharge Disposition: Home/Self Care PE: BP 116/61 Pulse 66 Temp 36.5 ?C (97.7 ?F) (Oral) Resp 18 Ht 167.6 cm (5' 5.98 ) Wt 97.5 kg (215 lb) LMP 09/13/2020 SpO2 97% BMI 34.72 kg/m? GENERAL: Alert, no distress, cooperative. HEAD: Normocephalic, atraumatic. EYES: EOMI, anicteric. NECK: Freely mobile. HEART: Regular rate. LUNGS: Unlabored breathing on room air. SKIN: Skin color, texture, turgor normal. No rashes or lesions. ABDOMEN: Soft, non-distended. Mild left flank ttp. EXTREMITIES: Moves all four purposefully. PULSES: Radial 2+ PSYCH: Appropriate mood and affect. Diet: Resume pre-hospital diet Activity: Resume pre-hospital activity Wound/Surgical Site Care: NA ALLERGIES Allergen Reactions - Dilaudid [Hydromorp* Itching Discharge Medications: Current Discharge Medication List START taking these medications gabapentin (NEURONTIN) 300 mg Take 300 mg by mouth every 8 hours. Qty: 540 mL Refills: 2 CONTINUE these medications which have NOT CHANGED AJOVY AUTOINJECTOR 225 mg Inject 225 mg subcutaneously once every month. Do not shake. LORazepam (ATIVAN) 1 mg Take 1 mg by mouth daily at bedtime. linaclotide (LINZESS) 145 mcg Take 145 mcg by mouth once daily. Qty: 30 capsule Refills: 11 acetaZOLAMIDE (DIAMOX) 250 mg Take 250 mg by mouth twice daily. HYDROcodone-acetaminophen (NORCO) 1 tablet Take 1 tablet by mouth every 8 hours as needed. UBRELVY 100 mg Take 100 mg by mouth as needed. cholecalciferol (VITAMIN D3) 1,000 Units Take 1,000 Units by mouth twice daily. acetaminophen (TYLENOL) 500 mg Take 500 mg by mouth every 8 hours as needed. ondansetron orally disintegrating (ZOFRAN ODT) 4 mg Take 4 mg by mouth every 4 hours as needed for Nausea/Vo (more content not included)... [facility] CONSULT PROGon 11-12-2020 CONSULT PROG HNO ID: [id number] Author: Awais Gonzalez MD Service: Infectious Disease Author Type: Physician Type: Consult Progress Note Filed: 11/12/2020 3:02 PM Note Text: INFECTIOUS DISEASE CONSULT PROGRESS NOTE PATIENT NAME: Maricarmen Anderson PRIMARY CARE PHYSICIAN: Viktor Sotelo MD CONSULTING SERVICE: Awais Gonzalez MD ASSESSMENT AND RECOMMENDATIONS: positive blood culture with MRSE In one set . prob contaminant. . port infection possible but less likely. Gastro paresis. s/p Gastric by pass surgery. suggest ; d/c vanco check additional cultures ok to d/c from ID poinrt of view. discussed with Dr Eng INTERVAL HPI : PATIENT EXAMINED. feels ok. still nauseous. port site ok . afebrile. Wbc 3.88 k Current Facility-Administered Medications Medication Dose Route Frequency - promethazine 25 mg tab(s) (PHENERGAN) 25 mg ORAL q 6 H PRN - LORazepam 0.5 mg tab(s) (ATIVAN) 0.5 mg ORAL BID PRN - acetaZOLAMIDE 250 mg tab(s) (DIAMOX) 250 mg ORAL BID - tiZANidine 4 mg tab(s) (ZANAFLEX) 4 mg ORAL AT BEDTIME - enoxaparin 40 mg injection (LOVENOX) 40 mg SUBCUTANEOUS q 24 HR - sodium chloride 0.9 % (flush) 10 mL (BD POSIFLUSH) 10 mL INTRAVENOUS q 12 H - sodium chloride 0.9 % (flush) 20 mL (BD POSIFLUSH) 20 mL INTRAVENOUS PRN - heparin 100 unit/mL 500 Units injection 5 mL INTRAVENOUS PRN - acetaminophen 650 mg CUP (TYLENOL) 650 mg ORAL q 6 H - ondansetron (PF) 4 mg injection (ZOFRAN) 4 mg INTRAVENOUS q 6 H PRN - docusate 100 mg oral liquid (DIOCTO, COLACE) 100 mg ORAL BID PRN - gabapentin 300 mg oral liquid (NEURONTIN) 300 mg ORAL q 8 H - prochlorperazine 5 mg injection (COMPAZINE) 5 mg INTRAVENOUS q 4 H PRN . OBJECTIVE PHYSICAL EXAM: BP 116/61 Pulse 66 Temp (Src) 97.7 (Oral) Resp 18 Ht 5' 5.984 (1.68m) Wt 215 lb (97.5kg) SpO2 97% LMP 09/13/2020 BMI 34.72 kg/(m2). O2 Therapy: Room Air Intake/Output Summary (Last 24 hours) at 11/12/2020 1458 Last data filed at 11/12/2020 1335 Gross per 24 hour Intake 610 ml Output ? Net 610 ml DATA: Diagnostic tests reviewed for today's visit: Recent Labs 11/12/20 0340 11/11/20 1500 11/11/20 0645 11/10/20 0309 WBC 3.88 -- 4.41 4.26 HB 8.5* -- 8.9* 8.6* HCT 28.9* -- 30.0* 29.0* PLT 167 -- 155 165 NA 140 -- 143 143 K 3.7 -- 3.8 3.9 CHLOR 112* -- 115* 114* CO2 19* -- 19* 20* CREAT 0.73 -- 0.78 0.83 BUN 21 -- 20 16 GLUC 89 -- 89 93 CA 8.9 -- 9.2 8.9 CRP -- <0.3 -- -- 11/11/20 1247 11/11/20 1935 11/12/20 0514 11/12/20 1140 BP: 133/84 136/93 92/51 116/61 Pulse: 62 69 63 66 Resp: 16 16 16 18 Temp: 36.3 ?C (97.3 ?F) 36.9 ?C (98.4 ?F) 36.6 ?C (97.9 ?F) 36.5 ?C (97.7 ?F) TempSrc: Oral Oral Oral Oral SpO2: 100% 100% 97% 97% Weight: Height: Lines, Drains, and Airways Line Implanted Vascular Access Device Single Port 11/09/20 Right Chest 3 days SIGNATURE: Awais Gonzalez MD [facility] NURSING PROGon 11-12-2020 NURSING PROG HNO ID: [id number] Author: Wisam Carvajal RN Service: ? Author Type: Registered Nurse Type: Nursing Progress Note Filed: 11/12/2020 6:21 PM Note Text: Nursing Progress Note Patient Name: Maricarmen Anderson [facility] [address]- Daily Note: 0920: Assessment complete, patient denies nausea, heat pad given for pain, will continue to monitor 1750: blood cultures collected and sent to lab 1820: Discharge instructions given This note was completed by: Wisam Carvajal [facility] SHAMEKA Panel 11-11-2020 SHAMEKA by EIA 0.8 OD Ratio [facility] Comment on above: Result Comment: OD R atio is interpreted as follows: Negative <1.0 Positive >=1.0 Performed By: #### P RALPH, TRANSF #### [facility] [place] [address] [place], [place] [phone] SHAMEKA by EIA, Qual Negative Normal Negative [facility] Comment on above: Performed By: #### P REALB, TRANSF #### [facility] [address] [place], [place] [address] Basic Metabolic Panlon 11-11 Anion gap [Moles/Vol] 9 mmol/L Normal 0-15 [facility] Calcium [Mass/Vol] 9.2 mg/dL Normal 8.5-10.2 [facility] Chloride [Moles/Vol] 115 mmol/L High 97-105 [facility] CO2 [Moles/Vol] 19 mmol/L Low 22-30 [facility] Creatinine [Mass/Vol] 0.78 mg/dL Normal 0.58-0.96 [facility] eGFR- Amer. >60 Normal [facility] eGFR-All Other Races >60 Normal [facility] Comment on above: Result Comment: eGFR (Estimated GFR) Units of measure: mL/min/1.73 meters squared eGFR is derived from the reexpressed MDRD Study equation using the following parameters: serum creatinine, age, gender and race. The creatinine assay has been calibrated to be traceable to IDMS. An eGFR <60 mL/min/1.73m2 for >3 months is consistent with chronic kidney disease. Refer to KDOQI guidelines for clinical interpretation. In patients with unstable renal function, e.g. those with acute kidney injury, the eGFR may not accurately reflect actual GFR. Glucose [Mass/Vol] 89 mg/dL Normal 74-99 [facility] Potassium [Moles/Vol] 3.8 mmol/L Normal 3.7-5.1 [facility] Sodium [Moles/Vol] 143 mmol/L Normal 136-144 [facility] Urea nitrogen [Mass/Vol] 20 mg/dL Normal 7-21 [facility] Blood Cultureon 11-11-2020 Bacteria identified Cx Nom (Bld) Culture Result - No growth 5 days Normal [facility] Comment on above: Performed By: #### B LCUL ####[facility] [id number] [place], [place] [phone] C-Reactive Proteinon 021 CRP [Mass/Vol] mg/L Normal 0.1-0.89 [facility] Comment on above: Performed By: #### P REALB, TRANSF #### [facility] [address] [place], [place] [id number] C3 Complementon 11-11-2020 C3 Complement 122 mg/dL Normal 86-166 [facility] Comment on above: Performed By: #### P REALB, TRANSF #### [facility] [address] [address] C4 Complementon 11-11-2020 C4 Complement 26 mg/dL Normal 13-46 [facility] Comment on above: Performed By: #### P REALB, TRANSF #### [address] [id number] CBCon 11-11-2020 Absolute nRBC <0.01 Normal <0.01 [facility] Erythrocyte distribution width (RBC) [Ratio] 16.6 % High 11.5-15.0 [facility] Hematocrit (Bld) [Volume fraction] 30.0 % Low 36.0-46.0 [facility] Hemoglobin (Bld) [Mass/Vol] 8.9 g/dL Low 11.5-15.5 [facility] MCH 26.5 pG Normal 26.0-34.0 [facility] MCHC (RBC) [Mass/Vol] 29.7 g/dL Low 30.5-36.0 [facility] MCV (RBC) [Entitic vol] 89.3 fL Normal 80.0-100.0 [facility] Platelet mean volume (Bld) [Entitic vol] 11.5 fL Normal 9.0-12.7 [facility] Platelets (Bld) [#/Vol] 155 10*3/uL Normal 150-400 [facility] RBC (Bld) [#/Vol] 3.36 10*6/uL Low 3.90-5.20 [facility] WBC (Bld) [#/Vol] 4.41 10*3/uL Normal 3.70-11.00 [facility] CONSULTon 11-11-2020 CONSULT HNO ID: [id number] Author: Christopher Gonzalez V, MD Service: Infectious Disease Author Type: Physician Type: Consults Filed: 11/11/2020 1:19 PM Note Text: INFECTIOUS DISEASES CONSULT NOTE Referring Physician: Dr. Eng Reason for Consult: +ve blood cultures HPI: This is a 40 year old year old FEMALE with past medical history significant for hx of DVT in arm due to PIV and OCPs, eosinophilic esophagitis, gastropareiss, gerd, hx obesity now s/p gastric bypass in 2019 who presents on 11/10/20 with intermittent left flank pain for about 1-2 months (sharp in nature) with some increase in pain sometimes with deep inspiration/talking ever since she had feeding tube dislodged. Also had intermittent fevers/chills over the same period. She reports unintentional weight loss and poor appetite over that period as well. On arrival afebrile with normal wbc. LFTs and lipase normal. UCx neg. covid-19 -ve. CTA of a/p showed: No aortic aneurysm or aortic dissection. ?Within the limits of timing of contrast bolus, no pulmonary embolism is identified. Trace right-sided pleural effusion. ?Mild dependent atelectasis. Small hiatal hernia. ?Evidence of prior gastric bypass surgery. No acute abdominal or pelvic process is identified. Stable indeterminate 8 mm exophytic lesion measuring above water attenuation within the interpolar segment of the left kidney. ?Continued interval surveillance recommended. Incidentally noted is an approximately 1.6 cm left adnexal cyst. Pt is on no abx and continues to have normal wbc count and has been afebrile since admit. ID called to evaluate blood cx with CONS in 1/2 sets. ROS: 14 point ROS performed and negative except as noted above. PMHx: PAST MEDICAL HISTORY Diagnosis Date - Acute venous embolism and thrombosis of brachial vein (HCC) 2013 due to IV infiltrate, 2013, also on OCPs - Eosinophilic esophagitis - Gastroparesis - GERD (gastroesophageal reflux disease) - History of gastric bypass complications - Obesity, Class III, BMI 40-49.9 (morbid obesity) (HCC) - Port-A-Cath in place patients right upper chest wall SurgHx: PAST SURGICAL HISTORY Procedure Laterality Date - APPENDECTOMY 2009 - CHOLECYSTECTOMY 2009 - EGD multiple - LEFT KNEE AP AND LATERAL 2000 left knee reconstruction and ACL repair - PAST SURGICAL HISTORY OF 10/08/2018 Elaine-en-y gastric bypass - PICC LINE attempted- unsuccessful 06/08 - PICC LINE INSERT/CONSULT 11/10/2013 - PORT right chest wall SocHx: Social History Tobacco Use - Smoking status: Never Smoker - Smokeless tobacco: Never Used Substance Use Topics - Alcohol use: No - Drug use: No Comment: denies tx for drug/alcohol abuse in the past. FamHx: FAMILY HISTORY Problem Relation Age of Onset - Hypertension Other - Diabetes Mother - Ischemic Heart Disease Father age 56 - other (ALS) Father - No Known Problems Sister All: ALLERGIES Allergen Reactions - Dilaudid [Hydromorp* Itching No current facility-administered medications on file prior to encounter. Current Outpatient Medications on File Prior to Encounter Medication Sig - fremanezumab-vfrm (AJOVY AUTOINJECTOR) 225 mg/1.5 mL auto-injector Inject 225 mg subcutaneously once every month. Do not shake. - LORazepam (ATIVAN) 0.5 mg Take 1 mg by mouth daily at bedtime. - linaclotide (LINZESS) 145 mcg capsule Take 1 capsule by mouth once daily. - acetaZOLAMIDE (DIAMOX) 250 mg tablet Take 250 mg by mouth twice daily. - HYDROcodone-acetaminophen (NORCO) 5-325 mg per tablet Take 1 tablet by mouth every 8 hours as needed. - ubrogepant (UBRELVY) 100 mg tablet Take 100 mg by mouth as needed. - cholecalciferol (VITAMIN D3) 1,000 unit tab tablet Take 1,000 Units by mouth twice daily. - acetaminophen (TYLENOL) 500 mg/15 mL liqd Take 500 mg by mouth every 8 hours as needed. - ondansetron orally disintegrating (ZOFRAN ODT) 4 mg disintegrating tablet Take 1 tablet by mouth every 4 hours as needed for Nausea/Vomiting. - promethazine (PHENERGAN) 25 mg tablet Take 25 mg by mouth every 6 hours as needed. - tiZANidine (ZANAFLEX) 4 mg tablet Take 4 mg by mouth daily at bedtime. - promethazine (PHENERGAN) 25 mg suppository 1 Suppository by RECTAL route every 6 hours as needed. VITALS: BP 125/74 Pulse 62 Temp 36.5 ?C (97.7 ?F) (Oral) Resp 16 Ht 167.6 cm (5' 5.98 ) Wt 97.5 kg (215 lb) LMP 09/13/2020 SpO2 100% BMI 34.72 kg/m? GEN: Answering questions appropriately, No acute distress, obese HEENT: Anicteric sclera, No thrush NECK: No cervical lymphadenopathy, supple CHEST: Right chest wall med-port cannulated without SOI CVS: Normal S1+S2, No murmurs/gallops/rubs RESP: No respiratory distress, clear to auscultation bilaterally on limited anterior lung exam ABD: Soft, some mild left abdominal tenderness, non-distended, BS+ve, well healed wound at prior peg site, : No suprapubic or flank tenderness PSYCH: No (more content not included)... [facility] NURSING PROGon 11-11-2020 NURSING PROG HNO ID: [id number] Author: Anne-Marie Farley RN Service: Nursing Author Type: Registered Nurse Type: Nursing Progress Note Filed: 11/11/2020 9:50 PM Note Text: Nursing Progress Note Patient Name: Maricarmen Anderson Patient Location: [place]/ Daily Note: 1945 received report, assumed pt care. According to medical team it is ok to use medport. 2147 Pt actively throwing up. Holding medications to be given when patient can swallow. 2147 Resident paged. This note was completed by: Anne-Marie Farley [facility] NURSING PROG HNO ID: [id number] Author: Carolina Lowry RN Service: ? Author Type: Registered Nurse Type: Nursing Progress Note Filed: 11/11/2020 7:46 PM Note Text: Nursing Progress Note Patient Name: Maricarmen Anderson [place]/ [place] Daily Note:Nursing assessment completed see NPR. No signs of distress. 1600 Spoke with the surgery doctor, ok to continue using [employer]. This note was completed by: Carolina Morgan [facility] ALLIED HEALTHon 11-10-2020 ALLIED HEALTH HNO ID: [id number] Author: RT Mary(R) Service: Radiology Author Type: Sheet Metal Mechanic Type: Allied Health Filed: 11/09/2020 11:44 PM Note Text: Radiology Service Progress Note PATIENT NAME: Maricarmen Anderson DATE OF SERVICE: November 09, 2020 TIME: 11:44 PM PATIENT IDENTITY VERIFICATION COMPLETED USING TWO (2) IDENTIFIERS: Name and Date of confirmed by patient verbally. FALL SCREENING: Has the patient had 2 falls in the last year or 1 fall with injury or currently using an Ambulatory Assistive Device (Walker, Cane, Wheelchair, Crutches, etc.)? No PATIENT GENDER DATA: Female. status: : No status: NO. PATIENT RELEVANT IMPLANT DATA REVIEWED: Not Applicable RADIOLOGY DEPARTMENT: General X-ray: Exam(s) Completed: Spine X-Ray(s): Thoracic and Lumbar AP / LAT / L5-S1 PERIPHERAL IV DATA: Not applicable SIGNED BY: RT Mary(R) November 09, 2020 11:44 PM Normal [facility] Basic Metabolic Panlon 11-10 Anion gap [Moles/Vol] 9 mmol/L Normal 0-15 [facility] Calcium [Mass/Vol] 8.9 mg/dL Normal 8.5-10.2 [facility] Chloride [Moles/Vol] 114 mmol/L High 97-105 [facility] CO2 [Moles/Vol] 20 mmol/L Low 22-30 [facility] Creatinine [Mass/Vol] 0.83 mg/dL Normal 0.58-0.96 [facility] eGFR- Amer. >60 Normal [facility] eGFR-All Other Races >60 Normal [facility] Comment on above: Result Comment: eGFR (Estimated GFR) Units of measure: mL/min/1.73 meters squared eGFR is derived from the reexpressed MDRD Study equation using the following parameters: serum creatinine, age, gender and race. The creatinine assay has been calibrated to be traceable to IDMS. An eGFR <60 mL/min/1.73m2 for >3 months is consistent with chronic kidney disease. Refer to KDOQI guidelines for clinical interpretation. In patients with unstable renal function, e.g. those with acute kidney injury, the eGFR may not accurately reflect actual GFR. Glucose [Mass/Vol] 93 mg/dL Normal 74-99 [facility] Potassium [Moles/Vol] 3.9 mmol/L Normal 3.7-5.1 [facility] Sodium [Moles/Vol] 143 mmol/L Normal 136-144 [facility] Urea nitrogen [Mass/Vol] 16 mg/dL Normal 7-21 [facility] [facility] CASE MGT INIT [facility] 2020 CASE MGT INIT [facility] HNO ID: [id number] Author: Estela Avila RN Service: ? 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 Last discharge within 30 days: No Advance Directive: Current Advance Directive: None Coil Binder Attempted to Assist with AD Completion: Yes Action: Patient Unwilling Health LiteracyHow often do you need to have someone help you when you read instructions, pamphlets, or other written material from your doctor or pharmacy? : 1 - Never How confident are you filling out medical forms by yourself?: 2 - Quite a bit If Patient scores > 3 on either question, the following interventions were put into place:: Patient did not score > 3 on either question. Baseline Mental Status Prior to this Illness what was the patient's Baseline Mental Status?: Alert AND Oriented Prior to this illness, has anyone described the patient having any of the following behaviors?: Not Applicable Relationship of the informant to the patient:: Self Functional Status: Independent Does Patient Currently Receive Any Community Services or Home Care?: None Equipment Prior to Admission: None Has the Patient Been in a Nursing Home Facility in the Past 30 days?: No SOCIAL: Living Arrangements: Home Lives With: Son Financial Resources: Disabled Primary Contact: Extended Emergency Contact Information Primary Emergency Contact: Khalida Anaya Mobile Relation: Sister Secondary Emergency Contact: Lucero Chaves Mobile Relation: Mother Supportive Patient Contact:: Yes Contact Resources: Family Family Name/Phone: Sister Khalida Anaya/[phone] Caregiver AssessmentCaregiver is ready, willing and able to meet the patient's needs as recommended by the inter-professional team:: No Caregiver needed (per the patient) Patient's perception of need for this admission: Infection Medication Adherance I am convinced of the importance of my prescription medication: 0 - Agree Completely I worry that my prescription medication will do more harm than good to me : 0 - Disagree Completely I feel financially burdened by my [id number] expenses for my prescription medication:: 0 - Disagree Completely Risk Score: 0 Patient is categorized as: Low risk < 2 Are you interested in bedside delivery of your medications? No Is Patient Psychosocially Complex?: No ASSESSMENT AND PLAN: Medical Needs: Medical Needs: Two or more chronic diseases Psychosocial Needs: Psychosocial Needs: None FREEDOM OF CHOICE EXPLAINED: Marlette of Choice Given: No Reason Not Given: No placements necessary POTENTIAL TRANSITION PLANS Home Spoke with the patient by phone for CM assessment and DC planning. At discharge the patient plans to return to home with self care and OP follow up. DC plan D/W patient and care team, all in agreement. CM will continue to follow for DC planning/SW needs. SIGNATURE: Estela Avila RN PATIENT NAME: Maricarmen Anderson DATE: November 10, 2020 TIME: 9:45 AM PAGER/CONTACT #: [phone] [facility] 11-10-2020 Absolute nRBC <0.01 Normal <0.01 [facility] Erythrocyte distribution width (RBC) [Ratio] 16.6 % High 11.5-15.0 [facility] Hematocrit (Bld) [Volume fraction] 29.0 % Low 36.0-46.0 [facility] Hemoglobin (Bld) [Mass/Vol] 8.6 g/dL Low 11.5-15.5 [facility] MCH 26.5 pG Normal 26.0-34.0 [facility] MCHC (RBC) [Mass/Vol] 29.7 g/dL Low 30.5-36.0 [facility] MCV (RBC) [Entitic vol] 89.2 fL Normal 80.0-100.0 [facility] Platelet mean volume (Bld) [Entitic vol] 11.2 fL Normal 9.0-12.7 [facility] Platelets (Bld) [#/Vol] 165 10*3/uL Normal 150-400 [facility] RBC (Bld) [#/Vol] 3.25 10*6/uL Low 3.90-5.20 [facility] WBC (Bld) [#/Vol] 4.26 10*3/uL Normal 3.70-11.00 [facility] NURSING PROGon 11-10-2020 NURSING PROG HNO ID: [id number] Author: Carolina Lowry RN Service: ? Author Type: Registered Nurse Type: Nursing Progress Note Filed: 11/10/2020 9:53 AM Note Text: Nursing Progress Note Patient Name: Maricarmen [place] Daily Note:Nursing assessment completed see NPR. No signs of distress. This note was completed by: Carolina Lowry Normal [facility] NUTRITIONon 11-10-2020 NUTRITION HNO ID: [id number] Author: Luz Watson RD Service: Nutrition Therapy Author Type: Registered Dietitian Type: Nutrition Filed: 11/10/2020 12:56 PM Note Text: NUTRITION THERAPY INITIAL ASSESSMENT SERVICE DATE: 11/10/2020 SERVICE TIME: 12:43 Nutrition Assessment: Recommended Malnutrition Diagnosis: Mild Protein-Calorie Malnutrition In the context of: Chronic Illness or Injury Based on: Unintentional Weight Loss Nutrition Diagnosis: Problem: Suboptimal oral intake Related to: Chronic illness As evidenced by: Weight loss;Patient/family self-report;Nausea;Vomiti ng Estimated kilocalorie needs: 1304-2595 kcal/day Calorie Calculation Method: 15-20 kcals/kg Estimated protein needs (grams): 76-100 gm protein/day Grams protein determined by: 1.3 - 1.7 g/kg;[place] body weight Care Plan: Continue current diet Supplements: [employer] 1.0;Ensure Clear Monitor and Evaluation: Meet greater than 75% of estimated needs;Monitor fluid/electrolyte balance;Monitor labs, I/Os, vital signs, weight;Monitor bowel function Discharge Recommendations: Diet;Oral Supplements Diet: Resume home diet, GI soft or Regular Oral Supplements: TBD HPI: 40 year old female with PMHx of gastroparesis, GERD, gastric bypass and anemia. Pt admits with fevers and flank pain, blood cultures negative x 24 hrs. Found to have kidney lesion. Plan to repeat UA, surgery says ok for regular diet. Pt reports her J-tube has been out since September, she and medical team agreed to try oral diet only and monitor. She reports poor PO intake lately, states only minimal intake the past few days such as slushies or premier protein shake. She ate 1 serving of lithuanian toast this morning and had emesis following. Reports dislike of milk containing supplements. Denies sugar negatively affecting her BMs. Will try ensure clear and [employer] supplements at this time to improve intake. She would like to avoid need for TF if possible. Intake History: Nutrition Intake Prior to Admission: Less than 75% estimated energy needs greater than 7 days Current Intake: Less than 75% estimated energy needs Over: 2 days. Diet Orders (From admission, onward) Start Ordered 11/10/20 1245 DIET SUPPLEMENTS START NOW Question Answer Comment Supplement 1 ENSURE CLEAR APPLE Supplement 1 Frequency 1. BREAKFAST Supplement 2 ENSURE CLEAR MIXED DIAMOND Supplement 2 Frequency 5. DINNER Supplement 3 LORAINE [employer]ARMS 1.0 VANILLA Supplement 3 Frequency 3. LUNCH 05/22/21 1240 11/09/20 1415 DIET GASTRO INTESTINAL START NOW Question: Gastro Intestinal Answer: GI SOFT-FIBER CONTROLLED 11/09/20 1404 Anthropometrics: Height: 167.6 cm (5' 5.98 ) Weight: 97.5 kg (215 lb) Dosing Weight: 97.5 kg (215 lb) Body mass index is 34.72 kg/m?. Weight change percentage over time: 6% weight loss over 1 month- significant. Physical Exam: Subcutaneous fat loss: No fat loss Muscle loss: No muscle loss Potential micronutrient deficiency: No deficiency identified Edema/Ascites: No edema GI Symptoms: Nausea;Vomiting Potential Signs of Inflammation: Chronic condition MNT Billing Type: Initial Assess/15 min 3 units SIGNATURE: Luz Watson RD PATIENT NAME: Maricarmen Anderson DATE: November 10, 2020 TIME: 12:50 PM PAGER: [phone] Normal [facility] Urinalysis with Microscopico n 11-10-2020 Bacteria 3+ /HPF Critically abnormal Negative [facility] Bilirubin, Urine Negative Normal Negative [facility] Cast SEE COMMENT Normal 0 [facility] Comment on above: Result Comment: 0 Clarity (U) Clear Normal Clear [facility] Color (U) Yellow Normal Yellow [facility] Crystals LM Nom (Urine sed) SEE COMMENT Critically abnormal Negative [facility] Comment on above: Result Comment: 2+ Calcium Oxalate Epithelial cells LM Ql (Urine sed) SEE COMMENT Critically abnormal Occasional [facility] Comment on above: Result Comment: 1+ Squamous Epithelial Cells Glucose Ql (U) Negative Normal Negative [facility] Hemoglobin/Blood,Ur Negative Normal Negative [facility] Ketones Ql (U) Trace Critically abnormal Negative [facility] Leukest 1+ Critically abnormal Negative [facility] Mucus Ql (Urine sed) 1+ Normal [facility] Nitrite Ql (U) Negative Normal Negative [facility] pH (U) 6.5 [pH] Normal 5.0-8.0 [facility] Protein, Urine Trace Critically abnormal Negative [facility] RBC 3-5 Critically abnormal 0-3 [facility] Specific [place], Ur 1.025 Normal 1.005-1.030 [facility] Urobilinogen Qn (U) 1.0 {José'U}/dL Normal 0.2-1.0 [facility] WBC 26-50 Critically abnormal 0-5 [facility] XR LUMBAR 2V AP/LATon 2020 XR LUMBAR 2V AP/LAT * * *Final Report* * * DATE OF EXAM: Nov 09 2020 11:44PM SPX [id number] - XR LUMBAR 2V AP/LAT / PROCEDURE REASON: Back pain, prior surgery, new or progressive sx * * * * Physician Interpretation * * * * RESULT: EXAMINATION: XR THORACIC 2V AP/LAT, XR LUMBAR 2V AP/LAT HISTORY: mid back pain (accession [id number]), back pain (accession [id number]) Mid-back/T-spine pain, initial exam. TECHNIQUE: XR THORACIC 2V AP/LAT, XR LUMBAR 2V AP/LAT Laterality: NOT APPLICABLE Number of different views (projections): 2 M: XB_1 RESULT: THORACIC SPINE: There is no significant intervertebral body disc space narrowing. There is no vertebral body compression fracture. There is mild multilevel disc space narrowing. LUMBAR SPINE: There is no significant intervertebral body disc space narrowing. There is no vertebral body compression fracture. Sacroiliac joint spaces are grossly preserved. Contrast material is seen within the renal collecting systems. Phleboliths are seen within the left pelvis. Copious amount of stool within the colon. IMPRESSION: Mild multilevel disc space narrowing. No vertebral body compression fracture within the thoracic spine. No acute findings within the cervical spine. No significant intervertebral body disc space narrowing. Transcribed Using Voice Recognition Transcribe Date/Time: Nov 10 2020 7:07A Dictated by: RAJESH ALEX MD This examination was interpreted and the report reviewed and electronically signed by: RAJESH ALEX MD on Nov 10 2020 7:09AM EST [id number] Normal [facility] XR THORACIC 2V AP/LATon 10-21 XR THORACIC 2V AP/LAT * * *Final Report* * * DATE OF EXAM: Nov 09 2020 11:44PM SPX [id number] - XR THORACIC 2V AP/LAT / PROCEDURE REASON: Mid-back/T-spine pain, initial exam * * * * Physician Interpretation * * * * RESULT: EXAMINATION: XR THORACIC 2V AP/LAT, XR LUMBAR 2V AP/LAT HISTORY: mid back pain (accession [id number]), back pain (accession [id number]) Mid-back/T-spine pain, initial exam. TECHNIQUE: XR THORACIC 2V AP/LAT, XR LUMBAR 2V AP/LAT Laterality: NOT APPLICABLE Number of different views (projections): 2 M: XB_1 RESULT: THORACIC SPINE: There is no significant intervertebral body disc space narrowing. There is no vertebral body compression fracture. There is mild multilevel disc space narrowing. LUMBAR SPINE: There is no significant intervertebral body disc space narrowing. There is no vertebral body compression fracture. Sacroiliac joint spaces are grossly preserved. Contrast material is seen within the renal collecting systems. Phleboliths are seen within the left pelvis. Copious amount of stool within the colon. IMPRESSION: Mild multilevel disc space narrowing. No vertebral body compression fracture within the thoracic spine. No acute findings within the cervical spine. No significant intervertebral body disc space narrowing. Transcribed Using Voice Recognition Transcribe Date/Time: Nov 10 2020 7:07A Dictated by: RAJESH ALEX MD This examination was interpreted and the report reviewed and electronically signed by: RAJESH ALEX MD on Nov 10 2020 7:09AM EST [id number] [facility] HEALTH 11-09-2020 ALLIED HEALTH HNO ID: [id number] Author: Uzair Monroy Service: Radiology Author Type: Sheet Metal Mechanic Type: Allied Health Filed: 11/09/2020 7:56 AM Note Text: Radiology Service Progress Note PATIENT NAME: Maricarmen Anderson DATE OF SERVICE: November 09, 2020 TIME: 7:55 AM PATIENT IDENTITY VERIFICATION COMPLETED USING TWO (2) IDENTIFIERS: Name and Date of confirmed by patient verbally. FALL SCREENING: Has the patient had 2 falls in the last year or 1 fall with injury or currently using an Ambulatory Assistive Device (Walker, Cane, Wheelchair, Crutches, etc.)? Emergency Room Patient: Screened in ED PATIENT GENDER DATA: Female. status: : No status: NO. PATIENT RELEVANT IMPLANT DATA REVIEWED: Not Applicable RADIOLOGY DEPARTMENT: General X-ray: Exam(s) Completed: Chest X-Ray PERIPHERAL IV DATA: Not applicable SIGNED BY: Uzair Monroy November 09, 2020 7:55 AM [facility] ALLIED HEALTH HNO ID: [id number] Author: Uzair Monroy Service: Radiology Author Type: Sheet Metal Mechanic Type: Allied Health Filed: 11/09/2020 7:51 AM Note Text: Radiology Service Progress Note PATIENT NAME: Maricarmen Anderson DATE OF SERVICE: November 09, 2020 TIME: 7:51 AM PATIENT IDENTITY VERIFICATION COMPLETED USING TWO (2) IDENTIFIERS: Name and Date of confirmed by patient verbally. FALL SCREENING: Has the patient had 2 falls in the last year or 1 fall with injury or currently using an Ambulatory Assistive Device (Walker, Cane, Wheelchair, Crutches, etc.)? Emergency Room Patient: Screened in ED PATIENT GENDER DATA: Female. status: : No status: NO. PATIENT RELEVANT IMPLANT DATA REVIEWED: Not Applicable RADIOLOGY DEPARTMENT: General X-ray: Exam(s) Completed: Chest X-Ray PERIPHERAL IV DATA: Not applicable SIGNED BY: Uzair Monroy November 09, 2020 7:51 AM [facility] Blood Cultureon 11-09-2020 Bacteria identified Cx Nom (Bld) Culture Result - No growth 5 days [facility] Comment on above: Performed By: #### B LCUL ####[facility] [id number] [place], [place] [phone] Bacteria identified Cx Nom (Bld) Additional Testing - Methicillin resistant Staphylococcus epidermidis (MRSE) detected by microarray. Single positive cultures of S. epidermidis usually represent contamination. Call lab within 72 h if further work up is required. Negative for Streptococcus spp. and Enterococcus spp. by microarray. Culture Result - Staphylococcus epidermidis Probable contaminant. Susceptibility testing will not be performed. Call lab within 72 hours to initiate workup if clinically indicated. --> ABNORMAL ALERT (NOTE) --> ABNORMAL ALERT Positive result called to and read back by: Nika Gore RN [facility] --> ABNORMAL ALERT [place] [facility] [address] Surg 11/11/20 Brennan2 Chuckie Sharpe --> ABNORMAL ALERT Methicillin resistant Staphylococcus epidermidis (MRSE) detected by --> ABNORMAL ALERT microarray. Single positive cultures of S. epidermidis usually --> ABNORMAL ALERT represent contamination. Call lab within 72 h if further work up is --> ABNORMAL ALERT required. Negative for Streptococcus spp. and Enterococcus spp. by --> ABNORMAL ALERT microarray.(*) Called to and read back by: BRANDIE QUINN from [facility] on --> ABNORMAL ALERT 11/11/20 at 0523 to [place] --> ABNORMAL ALERT --> ABNORMAL ALERT Critically abnormal [facility] Comment on above: Performed By: #### B LCUL ####[facility] [id number] [place], [place] [phone] CBC and Differentialon 11-09 Abs Baso <0.03 Normal <0.11 [facility] Abs [place] 0.29 k/uL Normal <0.87 [facility] Abs Neut 3.25 k/uL Normal 1.45-7.50 [facility] Absolute nRBC <0.01 Normal <0.01 [facility] Basophils/100 WBC (Bld) 0.4 % Normal [facility] DTYPE Auto Diff Normal [facility] Eosinophils (Bld) [#/Vol] 0.04 10*3/uL Normal <0.46 [facility] Eosinophils/100 WBC (Bld) 0.8 % Normal [facility] Erythrocyte distribution width (RBC) [Ratio] 16.3 % High 11.5-15.0 [facility] Hematocrit (Bld) [Volume fraction] 31.9 % Low 36.0-46.0 [facility] Hemoglobin (Bld) [Mass/Vol] 9.6 g/dL Low 11.5-15.5 [facility] Lymphocytes (Bld) [#/Vol] 1.33 10*3/uL Normal 1.00-4.00 [facility] Lymphocytes/100 WBC (Bld) 26.9 % Normal [facility] MCH 26.0 pG Normal 26.0-34.0 [facility] MCHC (RBC) [Mass/Vol] 30.1 g/dL Low 30.5-36.0 [facility] MCV (RBC) [Entitic vol] 86.4 fL Normal 80.0-100.0 [facility] Monocytes/100 WBC (Bld) 5.9 % Normal [facility] Neutrophils/100 WBC (Bld) 66.0 % Normal [facility] NRBCs 0.0 /100 WBC Normal 0 [facility] Platelet mean volume (Bld) [Entitic vol] 11.0 fL Normal 9.0-12.7 [facility] Platelets (Bld) [#/Vol] 173 10*3/uL Normal 150-400 [facility] RBC (Bld) [#/Vol] 3.69 10*6/uL Low 3.90-5.20 [facility] WBC (Bld) [#/Vol] 4.95 10*3/uL Normal 3.70-11.00 [facility] CTA ABD/PELV W IVCONon 11-09 CTA ABD/PELV W IVCON * * *Final Report* * * DATE OF EXAM: Nov 09 2020 10:53AM [facility] 0311 - CTA ABD/PELV W IVCON / PROCEDURE REASON: Chest/back pain, acute, aortic dissection suspected * * * * Physician Interpretation * * * * RESULT: EXAMINATION: CT OF THE CHEST WITHOUT CONTRAST. CT CHEST WITH IV CONTRAST AND CT ABDOMEN AND PELVIS WITH IV CONTRAST CLINICAL HISTORY: chest/ back pain TECHNIQUE: Initially, a CT of the chest without contrast was performed. CT of the chest from the thoracic inlet to the upper abdomen was performed following administration of IV contrast. CT of the abdomen and pelvis was performed using standard technique. Contrast: IV: 120 ml of Omnipaque 350 CT Radiation dose: Integrated Dose-length product (DLP) for this visit = 1335 mGy*cm. CT Dose Reduction Employed: Automated exposure control(AEC) and iterative recon COMPARISON: None. RESULT: Initial noncontrast enhanced chest CT is negative for intramural hematoma. There is no aortic dissection or aneurysm. Major vessels arising from the aortic arch are patent as are the celiac artery, SMA, renal arteries, and JAK. Incidentally noted is an accessory left renal artery. Within the limits of timing of contrast bolus, no pulmonary embolism is identified. The main pulmonary artery measures normal in dimension. Chest: Lines, tubes, and devices: There is a Port-A-Cath seen within the subcutaneous tissues of the right upper chest, causing streak artifact. A generator pack seen within the subcutaneous tissues of the left upper chest. Lung parenchyma and pleura: There is a trace right-sided pleural effusion. There is mild dependent atelectasis. There is no pneumothorax or endobronchial lesion. No convincing CT evidence for pneumonia. Thoracic inlet, heart, and mediastinum: There are no pathologically enlarged axillary lymph nodes. There are prominent, less than 1 cm mediastinal and bilateral hilar lymph nodes, likely reactive. The heart is normal in size. There is no significant pericardial effusion. There is a small hiatal hernia. Abdomen/pelvis: Liver: Focal fatty change is seen within the liver, adjacent to the falciform ligament. There is no obvious focal discrete hepatic mass. Biliary: The patient is status post cholecystectomy. There is no biliary dilation. Spleen: No splenomegaly. Heterogeneous appearance of the spleen likely relates to timing of contrast bolus. Pancreas: There is no focal discrete pancreatic mass or pancreatic ductal dilation. Adrenals:No mass. Kidneys: There is no hydronephrosis or perinephric fluid collection. There is an approximately 8mm exophytic lesion measuring above water attenuation within the interpolar segment of the left kidney (series 4, image #112). Continued interval surveillance is recommended. GI tract: There is a small hiatal hernia. Evidence of prior gastric bypass surgery. There are no dilated loops of bowel to suggest obstruction. Lymph nodes: There are prominent, less than 1 cm abdominal lymph nodes, likely reactive. Mesentery/Peritoneum: There is no abdominal ascites. Pelvis: There is an approximately 1.6 cm left adnexal cyst (series 4, image #212). There are prominent less than 1 cm pelvic lymph nodes, likely reactive. A few phleboliths are seen within the pelvis. There is no pelvic ascites. Bones/Soft Tissues: Sclerosis is seen involving the sacroiliac joint spaces, bilaterally, right greater than left. A few presumed nodules are seen within the osseous structures. There is no destructive bony lesion. IMPRESSION: No aortic aneurysm or aortic dissection. Within the limits of timing of contrast bolus, no pulmonary embolism is identified. Trace right-sided pleural effusion. Mild dependent atelectasis. Small hiatal hernia. Evidence of prior gastric bypass surgery. No acute abdominal or pelvic process is identified. Stable indeterminate 8 mm exophytic lesion measuring above water attenuation within the interpolar segment of the left kidney. Continued interval surveillance recommended. Incidentally noted is an approximately 1.6 cm left adnexal cyst. Transcribed Using Voice Recognition Transcribe Date/Time: Nov 09 2020 10:40A Dictated by: RAJESH ALEX MD This examination was interpreted and the report reviewed and electronically signed by: RAJESH ALEX MD on Nov 09 2020 10:53AM EST [id number] Normal [facility] CTA CHEST (NONGATED) W IVCON on 11-09-2020 CTA CHEST (NONGATED) W IVCON * * *Final Report* * * DATE OF EXAM: Nov 09 2020 10:53AM [facility] 0123 - CTA CHEST (NONGATED) W IVCON / PROCEDURE REASON: Chest/back pain, acute, aortic dissection suspected * * * * Physician Interpretation * * * * RESULT: EXAMINATION: CT OF THE CHEST WITHOUT CONTRAST. CT CHEST WITH IV CONTRAST AND CT ABDOMEN AND PELVIS WITH IV CONTRAST CLINICAL HISTORY: chest/ back pain TECHNIQUE: Initially, a CT of the chest without contrast was performed. CT of the chest from the thoracic inlet to the upper abdomen was performed following administration of IV contrast. CT of the abdomen and pelvis was performed using standard technique. Contrast: IV: 120 ml of Omnipaque 350 CT Radiation dose: Integrated Dose-length product (DLP) for this visit = 1335 mGy*cm. CT Dose Reduction Employed: Automated exposure control(AEC) and iterative recon COMPARISON: None. RESULT: Initial noncontrast enhanced chest CT is negative for intramural hematoma. There is no aortic dissection or aneurysm. Major vessels arising from the aortic arch are patent as are the celiac artery, SMA, renal arteries, and JAK. Incidentally noted is an accessory left renal artery. Within the limits of timing of contrast bolus, no pulmonary embolism is identified. The main pulmonary artery measures normal in dimension. Chest: Lines, tubes, and devices: There is a Port-A-Cath seen within the subcutaneous tissues of the right upper chest, causing streak artifact. A generator pack seen within the subcutaneous tissues of the left upper chest. Lung parenchyma and pleura: There is a trace right-sided pleural effusion. There is mild dependent atelectasis. There is no pneumothorax or endobronchial lesion. No convincing CT evidence for pneumonia. Thoracic inlet, heart, and mediastinum: There are no pathologically enlarged axillary lymph nodes. There are prominent, less than 1 cm mediastinal and bilateral hilar lymph nodes, likely reactive. The heart is normal in size. There is no significant pericardial effusion. There is a small hiatal hernia. Abdomen/pelvis: Liver: Focal fatty change is seen within the liver, adjacent to the falciform ligament. There is no obvious focal discrete hepatic mass. Biliary: The patient is status post cholecystectomy. There is no biliary dilation. Spleen: No splenomegaly. Heterogeneous appearance of the spleen likely relates to timing of contrast bolus. Pancreas: There is no focal discrete pancreatic mass or pancreatic ductal dilation. Adrenals:No mass. Kidneys: There is no hydronephrosis or perinephric fluid collection. There is an approximately 8mm exophytic lesion measuring above water attenuation within the interpolar segment of the left kidney (series 4, image #112). Continued interval surveillance is recommended. GI tract: There is a small hiatal hernia. Evidence of prior gastric bypass surgery. There are no dilated loops of bowel to suggest obstruction. Lymph nodes: There are prominent, less than 1 cm abdominal lymph nodes, likely reactive. Mesentery/Peritoneum: There is no abdominal ascites. Pelvis: There is an approximately 1.6 cm left adnexal cyst (series 4, image #212). There are prominent less than 1 cm pelvic lymph nodes, likely reactive. A few phleboliths are seen within the pelvis. There is no pelvic ascites. Bones/Soft Tissues: Sclerosis is seen involving the sacroiliac joint spaces, bilaterally, right greater than left. A few presumed nodules are seen within the osseous structures. There is no destructive bony lesion. IMPRESSION: No aortic aneurysm or aortic dissection. Within the limits of timing of contrast bolus, no pulmonary embolism is identified. Trace right-sided pleural effusion. Mild dependent atelectasis. Small hiatal hernia. Evidence of prior gastric bypass surgery. No acute abdominal or pelvic process is identified. Stable indeterminate 8 mm exophytic lesion measuring above water attenuation within the interpolar segment of the left kidney. Continued interval surveillance recommended. Incidentally noted is an approximately 1.6 cm left adnexal cyst. Transcribed Using Voice Recognition Transcribe Date/Time: Nov 09 2020 10:40A Dictated by: RAJESH ALEX MD This examination was interpreted and the report reviewed and electronically signed by: RAJESH ALEX MD on Nov 09 2020 10:53AM EST [id number] Normal [facility] Comp Metabolic Panelon 11-09 Albumin [Mass/Vol] 3.9 g/dL Normal 3.5-5.0 [facility] ALP [Catalytic activity/Vol] 56 U/L Normal 34-123 [facility] ALT [Catalytic activity/Vol] 9 U/L Normal 7-38 [facility] Anion gap [Moles/Vol] 9 mmol/L Normal 0-15 [facility] AST [Catalytic activity/Vol] 16 U/L Normal 13-35 [facility] Bilirubin [Mass/Vol] 0.5 mg/dL Normal 0.2-1.3 [facility] Calcium [Mass/Vol] 9.4 mg/dL Normal 8.5-10.2 [facility] Chloride [Moles/Vol] 110 mmol/L High 97-105 [facility] CO2 [Moles/Vol] 21 mmol/L Low 22-30 [facility] Creatinine [Mass/Vol] 0.75 mg/dL Normal 0.58-0.96 [facility] eGFR- Amer. >60 Normal [facility] eGFR-All Other Races >60 Normal [facility] Comment on above: Result Comment: eGFR (Estimated GFR) Units of measure: mL/min/1.73 meters squared eGFR is derived from the reexpressed MDRD Study equation using the following parameters: serum creatinine, age, gender and race. The creatinine assay has been calibrated to be traceable to IDMS. An eGFR <60 mL/min/1.73m2 for >3 months is consistent with chronic kidney disease. Refer to KDOQI guidelines for clinical interpretation. In patients with unstable renal function, e.g. those with acute kidney injury, the eGFR may not accurately reflect actual GFR. Glucose [Mass/Vol] 91 mg/dL Normal 74-99 [facility] Potassium [Moles/Vol] 3.6 mmol/L Low 3.7-5.1 [facility] Protein [Mass/Vol] 6.6 g/dL Normal 6.3-8.0 [facility] Sodium [Moles/Vol] 140 mmol/L Normal 136-144 [facility] Urea nitrogen [Mass/Vol] 17 mg/dL Normal 7-21 [facility] D dimeron 11-09-2020 D dimer 770 ng/mL FEU High <500 [facility] Comment on above: Result Comment: 500 ng/mL FEU is the D Dimer cutoff to exclude DVT (deep vein thrombosis) and PE (pulmonary embolism) in patients with a low pre test probability. Supplemental Comment: In patients over 50 years with a low pre test probability for DVT and/or PE, an age adjusted D dimer cutoff can be calculated as [age x 10] ng/mL FEU. For example, a patient of 88 years would have an age adjusted D dimer cutoff of 880 ng/mL FEU. For patients with a suspected DVT, a D dimer level below 500 ng/mL FEU has a negative predictive value of >98.9%, a sensitivity of >96.9% and a specificity of >35.7%. For patients with a suspected PE, a D dimer level below 500 ng/mL FEU has a negative predictive value of >98.5%, and a sensitivity of >96.5% and a specificity of >38.8%. Reference: Kel M, et al. MAE 2014 311:1117 and Van Darcie N, et al. Kellen Int Med 2016 165:253. ED NOTEon 11-09-2020 ED NOTE HNO ID: [id number] Author: Yaya Singletary RN Service: ? Author Type: Registered Nurse Type: ED Notes Filed: 11/09/2020 1:34 PM Note Text: Report called to Abbey RN. All questions addressed. Vitals updated. Family at bedside. Pt NAD at this time. This RN at bedside to transport pt. Floor nurse aware of blood cultures and covid in process. [facility] ED NOTE HNO ID: [id number] Author: Yaya Singletary RN Service: ? Author Type: Registered Nurse Type: ED Notes Filed: 11/09/2020 7:44 AM Note Text: Portable CXR at bedside. [facility] ED NOTE HNO ID: [id number] Author: Yaya Singletary RN Service: ? Author Type: Registered Nurse Type: ED Notes Filed: 11/09/2020 7:18 AM Note Text: Assumed care of patient from Traci DIEGO. Pt in room standing up at bedside with emesis bag. NAD or active vomiting at this time. Joy PAULSON in room to talk with patient. [facility] ED NOTE HNO ID: [id number] Author: Connie Vazquez RN Service: ? Author Type: Registered Nurse Type: ED Notes Filed: 11/09/2020 6:28 AM Note Text: Patient states having left side flank pain. States had a fever earlier which she took tylenol. No fever in triage. States still some nausea, did vomit yesterday. Was seen at a local hospital last week for the same pain and states she was told her gastroparesis was the diagnosis Normal 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 She states is a mostly constant sharp pain is worse with movement. She feels a left chest fullness and soreness. There are no remitting factors. No shortness of breath. No leg swelling or leg pain. The pain has been constant since 6 PM last night. She states she intermittently has had fevers. Last night she had a fever of 102. She states for the last month since her J-tube was removed she has had a decreased appetite and has been vomiting whenever she eats something but this has been going on prior to the onset of her flank pain. No black or bloody stools or vomit. No injury that she can recall. She is taking tramadol at night for pain. She has discussed the eating issue with her surgeon and they both want a hold off on putting the J-tube back in place until her pain and fevers are sorted out. She states that last week she was admitted to a hospital in [place] for 3 days from Thursday to Thursday for her flank pain and fevers. She feels that her symptoms were not explained. She states they were giving her Cipro but does not believe she was told she had a kidney infection or urine infection. She states that she has been taking Cipro since then and just finished her last dose yesterday but is still having pain and fevers. No numbness or weakness in legs. PAST MEDICAL HISTORY Diagnosis Date - Acute venous embolism and thrombosis of brachial vein (HCC) 2013 due to IV infiltrate, 2013, also on OCPs - Eosinophilic esophagitis - Gastroparesis - GERD (gastroesophageal reflux disease) - History of gastric bypass complications - Obesity, Class III, BMI 40-49.9 (morbid obesity) ([facility]) - Port-A-Cath in place patients right upper chest wall PAST SURGICAL HISTORY Procedure Laterality Date - APPENDECTOMY 2009 - CHOLECYSTECTOMY 2009 - EGD multiple - LEFT KNEE AP AND LATERAL 2000 left knee reconstruction and ACL repair - PAST SURGICAL HISTORY OF 10/08/2018 Elaine-en-y gastric bypass - PICC LINE attempted- unsuccessful 06/08 - PICC LINE INSERT/CONSULT 11/10/2013 - PORT right chest wall FAMILY HISTORY Problem Relation Age of Onset - Hypertension Other - Diabetes Mother - Ischemic Heart Disease Father age 56 - other (ALS) Father - No Known Problems Sister Social History Tobacco Use - Smoking status: Never Smoker - Smokeless tobacco: Never Used Substance and Sexual Activity - Alcohol use: No - Drug use: No Comment: denies tx for drug/alcohol abuse in the past. - Sexual activity: Yes Partners: Male Comment: , since 2005 ALLERGIES Allergen Reactions - Dilaudid [Hydromorp* Itching Review of Systems Constitutional: Positive for appetite change and fever. Negative for fatigue. HENT: Negative for congestion. Eyes: Negative for visual disturbance. Respiratory: Negative for cough and shortness of breath. Cardiovascular: Negative for chest pain. Gastrointestinal: Positive for nausea and vomiting. Negative for abdominal pain. Genitourinary: Positive for flank pain. Negative for frequency. Musculoskeletal: Negative for myalgias. Skin: Negative for rash. Neurological: Negative for weakness and headaches. Physical Exam BP 142/88 Pulse 72 Temp 97.7 Resp 16 Ht 5' 6 (1.68m) Wt 215 lb (97.5kg) SpO2 100% LMP 09/13/2020 BMI 34.72 kg/(m2). O2 Therapy: Room Air Physical Exam Constitutional: General: She is not in acute distress. Appearance: She is well-developed. HENT: Head: Normocephalic. Eyes: Conjunctiva/sclera: Conjunctivae normal. Pupils: Pupils are equal, round, and reactive to light. Cardiovascular: Rate and Rhythm: Normal rate and regular rhythm. Heart sounds: Normal heart sounds. Pulmonary: Effort: Pulmonary effort is normal. Breath sounds: Normal breath sounds. Abdominal: General: Bowel sounds are normal. Palpations: Abdomen is soft. Tenderness: There is no abdominal tenderness. Musculoskeletal: General: Tenderness present. Normal range of motion. Cervical back: Normal range of motion and neck supple. Comments: Very tender to light touch over entire left flank. No erythema or rash. No midline spinal TTP. Toe/ankle Plantar/dorsiflexion 5/5 bilaterally; knee flexion/extension 5/5 bilaterally; hip flexion/extension 5/5 bilaterally; Sensation intact to light touch bilaterally Skin: General: Skin is w (more content not included)... Normal [facility] HISTORY PHYSICALon HISTORY PHYSICAL HNO ID: [id number] Author: Ashley Loo MD Service: General Surgery Author Type: Resident Type: HANDP Filed: 11/09/2020 2:21 PM Note Text: ----- Attestation signed by Clemente Eng MD at 11/09/2020 4:28 PM Attending Note I evaluated the patient and personally participated in the edward components. I agree with the resident's findings and plan with the following revisions and/or additions: Blood cultures, Gabapentin Signature: Clemente Eng Date: 11/09/2020 Time: 4:27 PM ----- HISTORY AND PHYSICAL - GENERAL SURGERY PATIENT NAME: Maricarmen Anderson SERVICE DATE: November 09, 2020 SERVICE TIME: 12:44 PM REASON FOR CONSULT: Flank pain, fever unknown source REQUESTING PHYSICIAN: Mckenna Moreno* PRIMARY CARE PHYSICIAN: Viktor Sotelo MD ASSESSMENT AND PLAN Gastroparesis GERD H/o gastric bypass Obesity Anemia Fevers Flank pain - admit to general surgery - fevers and flank pain currently without source at this time. CT A/P and labs unremarkable. Will send blood cultures from ED. Pt without signs of sepsis at this time, currently afebrile. - no acute surgical intervention - pain control: scheduled tylenol, gabapentin - continue home sertraline, lamotrigine, topamax, acetazolamide, tizanidine, ativan PRN - ok for GIS diet. PRN antiemetics. PRN colace. Continue home linzess. - hypokalemic in ED, replete potassium. daily BMP. UA in ED cloudy, 1+ leuk esterase, no nitrites, 3+ bacteria, and squams. Likely contaminated, Ucx sent. Will f/u culture. - Hb 9.6 currently. Will monitor with daily CBC. Previous iron studies in 05/2020 indicative of iron deficiency. - currently no indication for antibiotics - no glycemic concerns - dvt ppx: lovenox - ok to use mediport Discussed with Dr. Eng SUBJECTIVE HISTORY OF PRESENT ILLNESS: Maricarmen Anderson is a 40 year old female well known to the general surgery service who presents to the ED today with complaints of left flank pain. Pt states she has had this pain on and off for the past month. It is in a very focal distribution from her left flank and wraps around to her left midaxillary line. It is not abdominal in nature. The pain occurs all the time. She has also had intermittent fevers which occur off and on for the past month. These fevers are accompanied with chills and she states when she does not have a fever she still feels chilled. She has had a poor appetite and does not feel that she has been eating enough. She has been suffering from recurrent UTIs for which she was seen in her local ED dept and prescribed antibiotics, most recently cipro. She denies CP, SOB, vomiting, diarrhea, rashes or skin lesions, cough, MARQUEZ, visual changes, joint aches or swelling. She denies sick contacts, recent travel. In the ED, her labs were unremarkable with no leukocytosis, anemia with Hb 9.6, normal LFTs and kidney function. A CT A?P was performed with no evidence of aortic dissection, PE, acute abdominal process. No splenomegaly or overt renal abnormality. She does have a small 8mm lesion in her left kidney which is stable from prior studies and no evidence of pyelonephritis. UA with evidence of contamination on analysis and urine culture was sent. COVNOEMÍ stll pending, blood cultures drawn and pending. PAST MEDICAL HISTORY: PAST MEDICAL HISTORY Diagnosis Date - Acute venous embolism and thrombosis of brachial vein ([facility]) 2013 due to IV infiltrate, 2013, also on OCPs - Eosinophilic esophagitis - Gastroparesis - GERD (gastroesophageal reflux disease) - History of gastric bypass complications - Obesity, Class III, BMI 40-49.9 (morbid obesity) ([facility]) - Port-A-Cath in place patients right upper chest wall PAST SURGICAL HISTORY: PAST SURGICAL HISTORY Procedure Laterality Date - APPENDECTOMY 2009 - CHOLECYSTECTOMY 2009 - EGD multiple - LEFT KNEE AP AND LATERAL 2000 left knee reconstruction and ACL repair - PAST SURGICAL HISTORY OF 10/08/2018 Elaine-en-y gastric bypass - PICC LINE attempted- unsuccessful 06/08 - PICC LINE INSERT/CONSULT 11/10/2013 - PORT right chest wall FAMILY HISTORY: FAMILY HISTORY Problem Relation Age of Onset - Hypertension Other - Diabetes Mother - Ischemic Heart Disease Father age 56 - other (ALS) Father - No Known Problems Sister SOCIAL HISTORY: Social History Tobacco Use - Smoking status: Never Smoker - Smokeless tobacco: Never Used Substance Use Topics - Alcohol use: No - Drug use: No Comment: denies tx for drug/alcohol abuse in the past. MEDICATIONS: (Not in a hospital admission) Current Facility-Administered Medications Medication Dose Route Frequency - iv contrast (radiology procedure) INTRAVENOUS DIRECTED PRN ALLERGIES: ALLERGIES Allergen Reactions (more content not included)... Normal [facility] High Sens Troponin Ton 11-09 High Sensitivity SALLY 6 ng/L Normal <12 [facility] Comment on above: Result Comment: When assessing risk for acute coronary syndromes: In patients undergoing blood draw greater than or equal to 2 hours from symptom onset, with history of very low to moderate risk and non-ischemic ECG, an initial hs-Troponin T less than 12 ng/L AND a 1 hour delta hs-Troponin T less than 3 ng/L should be considered very low risk for 30 day MACE. High Sensitivity SALLY 6 ng/L Normal <12 [facility] Comment on above: Result Comment: When assessing risk for acute coronary syndromes: In patients undergoing blood draw greater than or equal to 2 hours from symptom onset, with history of very low to moderate risk and non-ischemic ECG, an initial hs-Troponin T less than 12 ng/L AND a 1 hour delta hs-Troponin T less than 3 ng/L should be considered very low risk for 30 day MACE. Intermed Rapid COVIDon 11-09 SARS-CoV-2 (COVID-19) RNA CRISTINA+probe Ql (Unsp spec) Nasopharyngeal Swab Normal [facility] Comment on above: Performed By: #### I TCOVD ####[facility] [place] [place], [place] [phone] SARS-CoV-2 (COVID-19) RNA CRISTINA+probe Ql (Unsp spec) Negative for COVID19 (SARS CoV2) by RT-PCR or equivalent method. Normal Negative for COVID19 (SARS CoV2) by RT-PCR or equivalent method. [facility] Comment on above: Result Comment: This test was developed and its performance characteristics determined by [facility] [place]. This test has been authorized by FDA under an Emergency Use Authorization (EUA). This test has been validated in accordance with the FDA's Guidance Document Policy for Diagnostics Testing in Laboratories Certified to Perform High Complexity Testing under CLIA prior to Emergency use Authorization for Coronavirus Disease 2019 during the Public Health Emergency issued on August 20, 2019. Test performed by [facility], [facility] [place], [address], [place] [address]. Performed By: #### I TCOVD ####[facility] [place] [place], [place] [phone] Lipaseon 11-09-2020 Lipase [Catalytic activity/Vol] 21 U/L Normal 16-61 [facility] NURSING PROGon 11-09-2020 NURSING PROG HNO ID: [id number] Author: Saskia Cm RN Service: ? Author Type: Registered Nurse Type: Nursing Progress Note Filed: 11/10/2020 6:04 AM Note Text: Nursing Progress Note Patient Name: Maricarmen Anderson Patient Location: [facility] [place] Daily Note: Received report from BRANDIE Joel. 2020: Assessment completed, patient states feeling better than she did earlier today. Safety maintained, will continue to monitor. 2215: Observed patient asleep. 0005: Patient back up to floor from radiology. 0200: Observed patient asleep. 0309: Blood work collected. 0500: Observed patient asleep. 0603: Patient rates pain 8/10; paged resident. This note was completed by: Saskia Cm [facility] NURSING PROG HNO ID: [id number] Author: Wisam Carvajal RN Service: ? Author Type: Registered Nurse Type: Nursing Progress Note Filed: 11/09/2020 7:00 PM Note Text: Nursing Progress Note Patient Name: Maricarmen Anderson Patient Location: [facility] [place] Daily Note: 1454: assessment complete, patient complains of severe left flank pain and nausea, will continue to monitor 1845: Blood cultures collected and sent to lab This note was completed by: Wisam Carvajal [facility] NURSING PROG HNO ID: [id number] Author: Wisam Carvajal RN Service: ? Author Type: Registered Nurse Type: Nursing Progress Note Filed: 11/09/2020 5:16 PM Note Text: Nursing Progress Note Patient Name: Maricarmen Anderson Patient Location: [facility]TH [place]-931[facility]9TH [place]--1 Transfer Note: Patient transferred into room/unit 931 in stable condition. Actions taken: No futher actions taken at this time. Will continue to monitor and check with patient. This note was completed by: Wisam Carvajal Normal [facility] Urinalysis with Microscopico n 11-09-2020 Bacteria 3+ /HPF Critically abnormal Negative [facility] Bilirubin, Urine Negative Normal Negative [facility] Cast SEE COMMENT Normal 0 [facility] Comment on above: Result Comment: 0 Clarity (U) Slightly Cloudy Critically abnormal Clear [facility] Color (U) Yellow Normal Yellow [facility] Epithelial cells LM Ql (Urine sed) SEE COMMENT Critically abnormal Occasional [facility] Comment on above: Result Comment: 2+ Squamous Epithelial Cells Glucose Ql (U) Negative Normal Negative [facility] Hemoglobin/Blood,Ur Negative Normal Negative [facility] Ketones Ql (U) Negative Normal Negative [facility] Leukest 1+ Critically abnormal Negative [facility] Nitrite Ql (U) Negative Normal Negative [facility] pH (U) 6.5 [pH] Normal 5.0-8.0 [facility] Protein, Urine Trace Critically abnormal Negative [facility] RBC 0-3 Normal 0-3 [facility] Specific [place], Ur >=1.030 Normal 1.005-1.030 [facility] Urobilinogen Qn (U) 2.0 {José'U}/dL High 0.2-1.0 [facility] WBC 6-10 Critically abnormal 0-5 [facility] Urine Cultureon 11-09-2020 Bacteria identified Cx Nom (U) Sp. Request/Comment: - Best Practice Alert: To ensure optimal transport conditions and accurate culture results transfer urine specimens to mercer top C and S preservative tube. Best Practice Alert: Low volume (<3 ml) of urine was submitted preventing transfer to C and S preservative tube as recommended to optimize transport conditions and accuracy of culture results. Specimen received in sterile container. Culture Result - <10,000 CFU/ml Normal urogenital yogesh [facility] Comment on above: Performed By: #### U RCUL ####[facility] [address] [place], [place] [phone] XR CHEST 1V FRONTAL PORTon 0 11-09-2020 XR CHEST 1V FRONTAL PORT * * *Final Report* * * DATE OF EXAM: Nov 09 2020 7:54AM SPX [id number] - XR CHEST 1V FRONTAL PORT / PROCEDURE REASON: Chest pain * * * * Physician Interpretation * * * * RESULT: EXAMINATION: CHEST RADIOGRAPH (PORTABLE SINGLE VIEW AP) Exam Date/Time: 11/09/2020 7:54 AM CLINICAL HISTORY: Chest pain MQ: XCPR_5 Comparison: 08/10/2019 RESULT: There is a stable appearing right-sided Port-A-Cath. There is a left-sided pacemaker. The heart is normal in size. There is no pleural effusion, pneumothorax, or pulmonary vascular redistribution. IMPRESSION: No acute pulmonary process is identified. Transcribed Using Voice Recognition Transcribe Date/Time: Nov 09 2020 7:57A Dictated by: RAJESH ALEX MD This examination was interpreted and the report reviewed and electronically signed by: RAJESH ALEX MD on Nov 09 2020 7:59AM EST [id number] [facility] 11-08-2020 [facility] Telephone ([employer]) ----- MARICARMEN ANDERSON ([id number]) 1980 F T Date Time Provider Department 11/08/20 CLEMENTE ENG During your visit today, we recorded the following information about you: Nicolette Sanchez, CT 11/08/2020 9:29 AM Signed Called PCP office (Dr Viktor Sotelo) [phone] Dr is out of the office this week. Asked if Nurse could fax copies of recent lab work, imaging that may have been done while patient was recently hospitalized last week. BYRON Richter Nicolette BYRON Sanchez 11/09/2020 8:17 AM Signed Outside records received and scanned to [facility] Forwarded to Dr Eng. BYRON Richter Allergies As of Date: 11/08/2020 Noted Allergy Reaction DILAUDID (HYDROMORPHONE (BULK)) 03/28/2019 9 - Itching Date Reviewed: 11/07/2020 Reviewed by: Clemente Eng MD - Fully Assessed Reason for Visit: Patient Update [1234] Cmt: PCP Prescriptions as of 11/08/2020 Sig: LORAZEPAM 0.5 MG TABLET Take 1 mg by mouth daily at b* LINACLOTIDE 145 MCG CAPSULE Take 1 capsule by mouth once * ACETAZOLAMIDE 250 MG TABLET Take 250 mg by mouth twice da* HYDROCODONE 5 MG-ACETAMINOPHE* Take 1 tablet by mouth every * UBRELVY 100 MG TABLET Take 100 mg by mouth as neede* X LAMOTRIGINE 25 MG TABLET Take 25 mg by mouth twice ignacio* X TOPIRAMATE 25 MG SPRINKLE CAP* Take 4 capsules by mouth once* X PANTOPRAZOLE ORAL LIQUID 40 M* Take 20 mL by mouth twice ignacio* CHOLECALCIFEROL (VITAMIN D3) * Take 1,000 Units by mouth twi* ACETAMINOPHEN 500 MG/15 ML OR* Take 500 mg by mouth every 8 * X EMGALITY 120 MG/ML SUBCUTANEO* Inject 1 mL subcutaneously on* ONDANSETRON 4 MG DISINTEGRATI* Take 1 tablet by mouth every * PROMETHAZINE 25 MG TABLET Take 25 mg by mouth every 6 h* X SERTRALINE 100 MG TABLET Take 2 tablets by mouth daily* X SODIUM CHLORIDE 0.9 % IV BOLU* Inject 1,000 mL intravenously* TIZANIDINE 4 MG TABLET Take 4 mg by mouth daily at b* PROMETHAZINE 25 MG RECTAL SUP* 1 Suppository by RECTAL route* Problem List As Of Date 11/08/2020 Noted Resolved Abdominal pain [R10.9] 10/18/2013 05/18/2019 Nausea and vomiting [R11.2] 10/18/2013 03/29/2019 Left arm swelling [M79.89] 10/18/2013 Vaginal bleeding [N93.9] 10/20/2013 Menorrhagia [N92.0] 10/20/2013 Acute thrombosis of left axillary vein (HCC) [I*10/20/2013 Brachial vein thrombosis, 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] 10/20/2013 Anticoagulation management encounter [Z51.81, Z*10/20/2013 Acute embolism and thrombosis of superficial ve*10/20/2013 Arm edema [R60.0] 10/20/2013 Constipated [K59.00] 10/22/2013 Hypokalemia [E87.6] 10/22/2013 10/24/2013 Vision abnormalities [H53.9] 10/24/2013 Anemia [D64.9] 10/24/2013 Eosinophilic esophagitis [K20.0] 11/10/2013 Esophagitis [K20.90] 11/24/2013 Gastroparesis [K31.84] 05/20/2018 Obesity, Class III, BMI >= 40 [E66.01] 07/22/2018 Intractable nausea and vomiting [R11.2] 08/15/2018 Mild protein-calorie malnutrition (HCC) [E44.1] 08/18/2018 Nausea AND vomiting [R11.2] 10/13/2018 10/15/2018 Nausea [R11.0] 10/21/2018 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, 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]11/02/2018 GERD (gastroesophageal reflux disease) [K21.9] S/P partial gastrectomy [Z90.3] 12/07/2018 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] 12/07/2018 Dehydration [E86.0] 12/24/2018 Acute alteration in mental status [R41.82] 03/11/2019 Altered behavior [R46.89] 03/11/2019 03/29/2019 Headache in front of head [R51.9] 03/12/2019 03/13/2019 Headache [R51.9] 03/27/2019 03/29/2019 Syncope [R55] 03/28/2019 03/29/2019 Chiari I malformation (HCC) [G93.5] 03/28/2019 Syncope [R55] 04/07/2019 08/15/2019 Headache [R51.9] 04/19/2019 Obesity, Class II, BMI 35-39.9 [E66.9] 04/21/2019 Dislodged jejunostomy tube [T85.528A] 05/17/2019 05/18/2019 Nausea AND vomiting [R11.2] 06/07/2019 06/09/2019 Malfunction of jejunostomy tube (HCC) [K94.13] 07/10/2019 Abdominal pain [R10.9] 10/23/2019 Non-intractable vomiting with nausea [R11.2] 05/25/2020 Encounter Status:Closed by NICOLETTE SANCHEZ on 11/09/20 [facility] 11-05-2020 CNPN Telephone (GENSSP) ----- MARICARMEN ANDERSON ([id number]) 1980 F T Date Time Provider Department 11/05/20 CLEMENTE ENG During your visit today, we recorded the following information about you: BYRON Richter 11/05/2020 9:58 AM Signed Patient called. She was hospitalized last week localy to where she lives because of low iron levels and low H AND H. She is having problems tolerating solids. (her tube feeding tube was removed early September) She is sipping on gatorade and water. She has lost 25 lbs in the past 2.5 months. She said she ate much better prior to the tube being removed. As much as she doesn't want a new tube she thinks she needs one. She doesn't want the [place]. BYRON Richter Allergies As of Date: 11/05/2020 Noted Allergy Reaction DILAUDID (HYDROMORPHONE (BULK)) 03/28/2019 9 - Itching Date Reviewed: 09/29/2020 Reviewed by: Anne-Marie (Rn) BRANDIE Farley - Fully Assessed Reason for Visit: Patient Question [3105] Prescriptions as of 11/05/2020 Sig: LORAZEPAM 0.5 MG TABLET Take 0.5 mg by mouth twice da* LINACLOTIDE 145 MCG CAPSULE Take 1 capsule by mouth once * ACETAZOLAMIDE 250 MG TABLET Take 250 mg by mouth twice da* LAMOTRIGINE 25 MG TABLET Take 25 mg by mouth twice ignacio* HYDROCODONE 5 MG-ACETAMINOPHE* Take 1 tablet by mouth every * UBRELVY 100 MG TABLET Take 100 mg by mouth as neede* TOPIRAMATE 25 MG SPRINKLE CAP* Take 4 capsules by mouth once* PANTOPRAZOLE ORAL LIQUID 40 M* Take 20 mL by mouth twice ignacio* CHOLECALCIFEROL (VITAMIN D3) * Take 1,000 Units by mouth twi* ACETAMINOPHEN 500 MG/15 ML OR* Take 500 mg by mouth every 8 * EMGALITY 120 MG/ML SUBCUTANEO* Inject 1 mL subcutaneously on* ONDANSETRON 4 MG DISINTEGRATI* Take 1 tablet by mouth every * PROMETHAZINE 25 MG TABLET Take 25 mg by mouth every 6 h* SERTRALINE 100 MG TABLET Take 2 tablets by mouth daily* SODIUM CHLORIDE 0.9 % IV BOLU* Inject 1,000 mL intravenously* TIZANIDINE 4 MG TABLET Take 4 mg by mouth daily at b* PROMETHAZINE 25 MG RECTAL SUP* 1 Suppository by RECTAL route* Problem List As Of Date 11/05/2020 Noted Resolved Abdominal pain [R10.9] 10/18/2013 05/18/2019 Nausea and vomiting [R11.2] 10/18/2013 03/29/2019 Left arm swelling [M79.89] 10/18/2013 Vaginal bleeding [N93.9] 10/20/2013 Menorrhagia [N92.0] 10/20/2013 Acute thrombosis of left axillary vein (HCC) [I*10/20/2013 Brachial vein thrombosis, 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] 10/20/2013 Anticoagulation management encounter [Z51.81, Z*10/20/2013 Acute embolism and thrombosis of superficial ve*10/20/2013 Arm edema [R60.0] 10/20/2013 Constipated [K59.00] 10/22/2013 Hypokalemia [E87.6] 10/22/2013 10/24/2013 Vision abnormalities [H53.9] 10/24/2013 Anemia [D64.9] 10/24/2013 Eosinophilic esophagitis [K20.0] 11/10/2013 Esophagitis [K20.90] 11/24/2013 Gastroparesis [K31.84] 05/20/2018 Obesity, Class III, BMI >= 40 [E66.01] 07/22/2018 Intractable nausea and vomiting [R11.2] 08/15/2018 Mild protein-calorie malnutrition (HCC) [E44.1] 08/18/2018 Nausea AND vomiting [R11.2] 10/13/2018 10/15/2018 Nausea [R11.0] 10/21/2018 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, K31.89]11/02/2018 GERD (gastroesophageal reflux disease) [K21.9] S/P partial gastrectomy [Z90.3] 12/07/2018 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] 12/07/2018 Dehydration [E86.0] 12/24/2018 Acute alteration in mental status [R41.82] 03/11/2019 Altered behavior [R46.89] 03/11/2019 03/29/2019 Headache in front of head [R51.9] 03/12/2019 03/13/2019 Headache [R51.9] 03/27/2019 03/29/2019 Syncope [R55] 03/28/2019 03/29/2019 Chiari I malformation (HCC) [G93.5] 03/28/2019 Syncope [R55] 04/07/2019 08/15/2019 Headache [R51.9] 04/19/2019 Obesity, Class II, BMI 35-39.9 [E66.9] 04/21/2019 Dislodged jejunostomy tube [T85.528A] 05/17/2019 05/18/2019 Nausea AND vomiting [R11.2] 06/07/2019 06/09/2019 Malfunction of jejunostomy tube (HCC) [K94.13] 07/10/2019 Abdominal pain [R10.9] 10/23/2019 Nausea AND vomiting [R11.2] 05/25/2020 Encounter Status:Closed by CARLOS ALBERTO SIMMONS on 11/07/20 [facility] Raman 2020 CNPN Telephone ([facility]) ----- JUSTINMARICARMEN M ([id number]) 1980 F CHT Date Time Provider Department 10/30/20 EMELIA BALDWIN [facility] During your visit today, we recorded the following information about you: Urmila Hein Adm 2020 8:29 AM Signed Order Request Caller : Maricarmen Contact Order Being Requested : MRI Cervical Spine Orders need to be placed in [facility] Laith Donaldson RN 2020 12:42 PM Signed Called patient via phone. Notified her that imaging orders were available in chart and she could schedule at her convenience. Patient verbalized understanding. Allergies As of Date: 2020 Noted Allergy Reaction DILAUDID (HYDROMORPHONE (BULK)) 03/28/2019 9 - Itching Date Reviewed: 09/29/2020 Reviewed by: Anne-Marie (Rn) BRANDIE Farley - Fully Assessed Reason for Visit: Orders [681] Cmt: MRI Cervical Spine Visit Diagnosis:Chiari I malformation (HCC) [G93.5] Order(s):MRI CERVICAL SPINE WO NICHOLAS [[id number]] Order #: [id number] FUTURE Prescriptions as of 2020 Sig: LORAZEPAM 0.5 MG TABLET Take 0.5 mg by mouth twice da* LINACLOTIDE 145 MCG CAPSULE Take 1 capsule by mouth once * ACETAZOLAMIDE 250 MG TABLET Take 250 mg by mouth twice da* LAMOTRIGINE 25 MG TABLET Take 25 mg by mouth twice ignacio* HYDROCODONE 5 MG-ACETAMINOPHE* Take 1 tablet by mouth every * UBRELVY 100 MG TABLET Take 100 mg by mouth as neede* TOPIRAMATE 25 MG SPRINKLE CAP* Take 4 capsules by mouth once* PANTOPRAZOLE ORAL LIQUID 40 M* Take 20 mL by mouth twice ignacio* CHOLECALCIFEROL (VITAMIN D3) * Take 1,000 Units by mouth twi* ACETAMINOPHEN 500 MG/15 ML OR* Take 500 mg by mouth every 8 * EMGALITY 120 MG/ML SUBCUTANEO* Inject 1 mL subcutaneously on* ONDANSETRON 4 MG DISINTEGRATI* Take 1 tablet by mouth every * PROMETHAZINE 25 MG TABLET Take 25 mg by mouth every 6 h* SERTRALINE 100 MG TABLET Take 2 tablets by mouth daily* SODIUM CHLORIDE 0.9 % IV BOLU* Inject 1,000 mL intravenously* TIZANIDINE 4 MG TABLET Take 4 mg by mouth daily at b* PROMETHAZINE 25 MG RECTAL SUP* 1 Suppository by RECTAL route* Problem List As Of Date 2020 Noted Resolved Abdominal pain [R10.9] 10/18/2013 05/18/2019 Nausea and vomiting [R11.2] 10/18/2013 03/29/2019 Left arm swelling [M79.89] 10/18/2013 Vaginal bleeding [N93.9] 10/20/2013 Menorrhagia [N92.0] 10/20/2013 Acute thrombosis of left axillary vein (HCC) [I*10/20/2013 Brachial vein thrombosis, 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] 10/20/2013 Anticoagulation management encounter [Z51.81, Z*10/20/2013 Acute embolism and thrombosis of superficial ve*10/20/2013 Arm edema [R60.0] 10/20/2013 Constipated [K59.00] 10/22/2013 Hypokalemia [E87.6] 10/22/2013 10/24/2013 Vision abnormalities [H53.9] 10/24/2013 Anemia [D64.9] 10/24/2013 Eosinophilic esophagitis [K20.0] 11/10/2013 Esophagitis [K20.90] 11/24/2013 Gastroparesis [K31.84] 05/20/2018 Obesity, Class III, BMI >= 40 [E66.01] 07/22/2018 Intractable nausea and vomiting [R11.2] 08/15/2018 Mild protein-calorie malnutrition (HCC) [E44.1] 08/18/2018 Nausea AND vomiting [R11.2] 10/13/2018 10/15/2018 Nausea [R11.0] 10/21/2018 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, K31.89]11/02/2018 GERD (gastroesophageal reflux disease) [K21.9] S/P partial gastrectomy [Z90.3] 12/07/2018 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] 12/07/2018 Dehydration [E86.0] 12/24/2018 Acute alteration in mental status [R41.82] 03/11/2019 Altered behavior [R46.89] 03/11/2019 03/29/2019 Headache in front of head [R51.9] 03/12/2019 03/13/2019 Headache [R51.9] 03/27/2019 03/29/2019 Syncope [R55] 03/28/2019 03/29/2019 Chiari I malformation (HCC) [G93.5] 03/28/2019 Syncope [R55] 04/07/2019 08/15/2019 Headache [R51.9] 04/19/2019 Obesity, Class II, BMI 35-39.9 [E66.9] 04/21/2019 Dislodged jejunostomy tube [T85.528A] 05/17/2019 05/18/2019 Nausea AND vomiting [R11.2] 06/07/2019 06/09/2019 Malfunction of jejunostomy tube (HCC) [K94.13] 07/10/2019 Abdominal pain [R10.9] 10/23/2019 Nausea AND vomiting [R11.2] 05/25/2020 Encounter Status:Closed by LAITH DONALDSON on 10/30/20 [facility] MARICARMEN ANDERSON ([id number]) [address] [facility] Date Time Provider Department 10/22/20 CLEMENTE ENG During your visit today, we recorded the following information about you: Clemente Eng MD 10/22/2020 11:13 AM Signed Called patient and she is already aware of the lesion on her left Kidney and saw a local Urologist who is recommending re-imaging in January or February 2021. MD Doug Singh PA-C 10/22/2020 12:28 PM Signed Per surgery, patient has already followed up on this with [facility] urologist. We will close this out of the actionable findings registry. Actionable Findings follow up status: Complete Doug Duncan PA-C October 22, 2020 12:28 PM Allergies As of Date: 10/22/2020 Noted Allergy Reaction DILAUDID (HYDROMORPHONE (BULK)) 03/28/2019 9 - Itching Date Reviewed: 09/29/2020 Reviewed by: Anne-Marie (Rn) BRANIDE Farley - Fully Assessed Reason for Visit: Radio Imaging Study Comments [3499] Prescriptions as of 10/22/2020 Sig: IV CONTRAST (RADIOLOGY PROCED* MRI Kidney Inject, intravenou* LORAZEPAM 0.5 MG TABLET Take 0.5 mg by mouth twice da* LINACLOTIDE 145 MCG CAPSULE Take 1 capsule by mouth once * ACETAZOLAMIDE 250 MG TABLET Take 250 mg by mouth twice da* LAMOTRIGINE 25 MG TABLET Take 25 mg by mouth twice ignacio* HYDROCODONE 5 MG-ACETAMINOPHE* Take 1 tablet by mouth every * UBRELVY 100 MG TABLET Take 100 mg by mouth as neede* TOPIRAMATE 25 MG SPRINKLE CAP* Take 4 capsules by mouth once* PANTOPRAZOLE ORAL LIQUID 40 M* Take 20 mL by mouth twice ignacio* CHOLECALCIFEROL (VITAMIN D3) * Take 1,000 Units by mouth twi* ACETAMINOPHEN 500 MG/15 ML OR* Take 500 mg by mouth every 8 * EMGALITY 120 MG/ML SUBCUTANEO* Inject 1 mL subcutaneously on* ONDANSETRON 4 MG DISINTEGRATI* Take 1 tablet by mouth every * PROMETHAZINE 25 MG TABLET Take 25 mg by mouth every 6 h* SERTRALINE 100 MG TABLET Take 2 tablets by mouth daily* SODIUM CHLORIDE 0.9 % IV BOLU* Inject 1,000 mL intravenously* TIZANIDINE 4 MG TABLET Take 4 mg by mouth daily at b* PROMETHAZINE 25 MG RECTAL SUP* 1 Suppository by RECTAL route* Problem List As Of Date 10/22/2020 Noted Resolved Abdominal pain [R10.9] 10/18/2013 05/18/2019 Nausea and vomiting [R11.2] 10/18/2013 03/29/2019 Left arm swelling [M79.89] 10/18/2013 Vaginal bleeding [N93.9] 10/20/2013 Menorrhagia [N92.0] 10/20/2013 Acute thrombosis of left axillary vein (HCC) [I*10/20/2013 Brachial vein thrombosis, 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] 10/20/2013 Anticoagulation management encounter [Z51.81, Z*10/20/2013 Acute embolism and thrombosis of superficial ve*10/20/2013 Arm edema [R60.0] 10/20/2013 Constipated [K59.00] 10/22/2013 Hypokalemia [E87.6] 10/22/2013 10/24/2013 Vision abnormalities [H53.9] 10/24/2013 Anemia [D64.9] 10/24/2013 Eosinophilic esophagitis [K20.0] 11/10/2013 Esophagitis [K20.90] 11/24/2013 Gastroparesis [K31.84] 05/20/2018 Obesity, Class III, BMI >= 40 [E66.01] 07/22/2018 Intractable nausea and vomiting [R11.2] 08/15/2018 Mild protein-calorie malnutrition (HCC) [E44.1] 08/18/2018 Nausea AND vomiting [R11.2] 10/13/2018 10/15/2018 Nausea [R11.0] 10/21/2018 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, K31.89]11/02/2018 GERD (gastroesophageal reflux disease) [K21.9] S/P partial gastrectomy [Z90.3] 12/07/2018 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] 12/07/2018 Dehydration [E86.0] 12/24/2018 Acute alteration in mental status [R41.82] 03/11/2019 Altered behavior [R46.89] 03/11/2019 03/29/2019 Headache in front of head [R51.9] 03/12/2019 03/13/2019 Headache [R51.9] 03/27/2019 03/29/2019 Syncope [R55] 03/28/2019 03/29/2019 Chiari I malformation (HCC) [G93.5] 03/28/2019 Syncope [R55] 04/07/2019 08/15/2019 Headache [R51.9] 04/19/2019 Obesity, Class II, BMI 35-39.9 [E66.9] 04/21/2019 Dislodged jejunostomy tube [T85.528A] 05/17/2019 05/18/2019 Nausea AND vomiting [R11.2] 06/07/2019 06/09/2019 Malfunction of jejunostomy tube (HCC) [K94.13] 07/10/2019 Abdominal pain [R10.9] 10/23/2019 Nausea AND vomiting [R11.2] 05/25/2020 Encounter Status:Closed by CLEMENTE ENG on 10/22/20 [facility] 10-08-2020 CNPN Telephone (GENSSP) ----- MARICARMEN ANDERSON ([id number]) 1980 [facility] Date Time Provider Department 10/08/20 CLEMENTE ENG During your visit today, we recorded the following information about you: BYRON Richter CT 10/08/2020 8:20 AM Signed Patient states she went to the ER on 09/28/2020 and her j tube was removed. She had some low grade fevers and problems with eating and drinking (some vomiting) She is getting no nutrition for the past 7 days. She just doesn't want to get another tube. She went back to the ER this morning and was told she may have a fistula where the J tube was. She has a virtual with Dr Eng on 10/19/2020 but doesn't know if this can wait til then. She was also diagnosed with a UTI BYRON Richter CT, CT 10/08/2020 10:[address] Eng patient should come to the ER at [facility] if she is dehydrated and a new tube will be placed. 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 Patient called and informed of above messages. She said her labs at the ER were normal so she will continue to try and drink boost, ensure, gatorade, water and take in whatever she can orally. Nicolette Sanchez, CT Allergies As of Date: 10/08/2020 Noted Allergy Reaction DILAUDID (HYDROMORPHONE (BULK)) 03/28/2019 9 - Itching Date Reviewed: 09/29/2020 Reviewed by: Anne-Marie (Rn) BRANDIE Farley - Fully Assessed Reason for Visit: Patient Question [8727] Prescriptions as of 10/08/2020 Sig: ACETAZOLAMIDE 250 MG TABLET Take 250 mg by mouth twice da* LAMOTRIGINE 25 MG TABLET Take 25 mg by mouth twice ignacio* HYDROCODONE 5 MG-ACETAMINOPHE* Take 1 tablet by mouth every * UBRELVY 100 MG TABLET Take 100 mg by mouth as neede* TOPIRAMATE 25 MG SPRINKLE CAP* Take 4 capsules by mouth once* PANTOPRAZOLE ORAL LIQUID 40 M* Take 20 mL by mouth twice ignacio* LINACLOTIDE 145 MCG CAPSULE Take 1 capsule by mouth once * CHOLECALCIFEROL (VITAMIN D3) * Take 1,000 Units by mouth twi* ACETAMINOPHEN 500 MG/15 ML OR* Take 500 mg by mouth every 8 * EMGALITY 120 MG/ML SUBCUTANEO* Inject 1 mL subcutaneously on* ONDANSETRON 4 MG DISINTEGRATI* Take 1 tablet by mouth every * PROMETHAZINE 25 MG TABLET Take 25 mg by mouth every 6 h* SERTRALINE 100 MG TABLET Take 2 tablets by mouth daily* SODIUM CHLORIDE 0.9 % IV BOLU* Inject 1,000 mL intravenously* TIZANIDINE 4 MG TABLET Take 4 mg by mouth daily at b* PROMETHAZINE 25 MG RECTAL SUP* 1 Suppository by RECTAL route* Problem List As Of Date 10/08/2020 Noted Resolved Abdominal pain [R10.9] 10/18/2013 05/18/2019 Nausea and vomiting [R11.2] 10/18/2013 03/29/2019 Left arm swelling [M79.89] 10/18/2013 Vaginal bleeding [N93.9] 10/20/2013 Menorrhagia [N92.0] 10/20/2013 Acute thrombosis of left axillary vein (HCC) [I*10/20/2013 Brachial vein thrombosis, 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] 10/20/2013 Anticoagulation management encounter [Z51.81, Z*10/20/2013 Acute embolism and thrombosis of superficial ve*10/20/2013 Arm edema [R60.0] 10/20/2013 Constipated [K59.00] 10/22/2013 Hypokalemia [E87.6] 10/22/2013 10/24/2013 Vision abnormalities [H53.9] 10/24/2013 Anemia [D64.9] 10/24/2013 Eosinophilic esophagitis [K20.0] 11/10/2013 Esophagitis [K20.90] 11/24/2013 Gastroparesis [K31.84] 05/20/2018 Obesity, Class III, BMI >= 40 [E66.01] 07/22/2018 Intractable nausea and vomiting [R11.2] 08/15/2018 Mild protein-calorie malnutrition (HCC) [E44.1] 08/18/2018 Nausea AND vomiting [R11.2] 10/13/2018 10/15/2018 Nausea [R11.0] 10/21/2018 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, K31.89]11/02/2018 GERD (gastroesophageal reflux disease) [K21.9] S/P partial gastrectomy [Z90.3] 12/07/2018 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] 12/07/2018 Dehydration [E86.0] 12/24/2018 Acute alteration in mental status [R41.82] 03/11/2019 Altered behavior [R46.89] 03/11/2019 03/29/2019 Headache in front of head [R51.9] 03/12/2019 03/13/2019 Headache [R51.9] 03/27/2019 03/29/2019 Syncope [R55] 03/28/2019 03/29/2019 Chiari I malformation (HCC) [G93.5] 03/28/2019 Syncope [R55] 04/07/2019 08/15/2019 Headache [R51.9] 04/19/2019 Obesity, Class II, BMI 35-39.9 [E66.9] 04/21/2019 Dislodged jejunostomy tube [T85.528A] 05/17/2019 05/18/2019 Nausea AND vomiting [R11.2] 06/07/2019 06/09/2019 Malfunction of jejunostomy tube (HCC) [K94.13] 07/10/2019 Abdominal pain [R10.9] 10/23/2019 Nausea AND vomiting [R11.2] 05/25/2020 Encounter Status:Closed by NICOLETTE KNIG on 10/09/20 Normal [facility] Basic Metabolic Panlon 09-29 Anion gap [Moles/Vol] 10 mmol/L Normal 0-15 [facility] Comment on above: Performed By: #### P REALB ####[place] [address] [place] [phone] Calcium [Mass/Vol] 9.4 mg/dL Normal 8.5-10.2 [facility] Comment on above: Performed By: #### P REALB ####[place] [address] [place] [phone] Chloride [Moles/Vol] 110 mmol/L High 97-105 [facility] Comment on above: Performed By: #### P REALB ####[facility] [address] [place] [phone] CO2 [Moles/Vol] 20 mmol/L Low 22-30 [facility] Comment on above: Performed By: #### P REALB ####[facility] [address] [place], [place] [phone] Creatinine [Mass/Vol] 0.75 mg/dL Normal 0.58-0.96 [facility] Comment on above: Performed By: #### P REALB ####[facility] [address] [place] [address], [place] [phone] eGFR- Amer. >60 Normal [facility] Comment on above: Performed By: #### P REALB ####[facility] [address] [place], [place] [phone] eGFR-All Other Races >60 Normal [facility] Comment on above: Result Comment: eGFR (Estimated GFR) Units of measure: mL/min/1.73 meters squared eGFR is derived from the reexpressed MDRD Study equation using the following parameters: serum creatinine, age, gender and race. The creatinine assay has been calibrated to be traceable to IDMS. An eGFR <60 mL/min/1.73m2 for >3 months is consistent with chronic kidney disease. Refer to KDOQI guidelines for clinical interpretation. In patients with unstable renal function, e.g. those with acute kidney injury, the eGFR may not accurately reflect actual GFR. Performed By: #### P REALB ####[facility] [address] [place], [place] [phone] Glucose [Mass/Vol] 108 mg/dL High 74-99 [facility] Comment on above: Performed By: #### P REALB ####[facility] [address] [place], [place] [phone] Potassium [Moles/Vol] 3.6 mmol/L Low 3.7-5.1 [facility] Comment on above: Performed By: #### P REALB ####[facility] [address] [place] [address], [place] [phone] Sodium [Moles/Vol] 140 mmol/L Normal 136-144 [facility] Comment on above: Performed By: #### P REALB ####[facility] [address] [place] [address], [place] [phone] Urea nitrogen [Mass/Vol] 12 mg/dL Normal 7-21 [facility] Comment on above: Performed By: #### P REALB ####[facility] [place] [place], [place] [phone] CASE MANAGEMon 09-29-2020 CASE MANAGEM HNO ID: [id number] Author: Wiliam Santamaria Service: Case Management Author Type: Physician Type: Care Mgt Progress Note Filed: 09/30/2020 10:11 AM Note Text: CARE MANAGEMENT UTILIZATION REVIEW COMMITTEE PROVIDER LIABLE (Admission Status Discrepancy Review) Admission Date: 09/28/2020 Patient's Initial Order is: Inpatient Date Received: September 30, 2020 Date Reviewed: September 30, 2020 Under the authority of the Utilization Management Plan, the Physician Advisor, Dr. Wiliam Santamaria, has reviewed the medical record of the above patient. The following recommendation has been made by the Physician Advisor, based upon the current available medical information as of the date of this determination. The patient is appropriate for: Observation Rationale for this decision: Lack of medical necessity for inpatient admission and less than 2 midnight stay SIGNATURE: Wiliam Santamaria MD PATIENT NAME: Maricarmen Anderson DATE: September 30, 2020 TIME: 10:11 AM PAGER/CONTACT #: Disclaimer: The information in this determination is to be used for utilization management purposes only. The information and recommendation is made pursuant to Medicare Hospital Conditions of Participation (442 CFR Part 482) and is neither a judgment nor an assessment with regard to the appropriateness or quality of the clinical care. Nothing in this document may be used to limit clinical services provided to the above named patient. This form should be used as one part of the process utilized to ensure compliance with [facility] policy regarding Inpatient Admission and Observation Services. The definitions of Inpatient and Observation used in making the determination above are those provided in Medicare Benefit Policy Manual Chapter 1, Section 1 and 10, Chapter 6, Section 20, and the Medicare Claims Processing Manual Chapter 1, Section 50.3 and Chapter 4, Section 290. This recommendation should be considered as only one factor in determining the patient's final level of service along with other pertinent documentation such as the treating physician's order as documented evidence of concurrence. [facility] CASE MGT INIT JORGE 2020 [facility] HNO ID: [id number] Author: Anaid (Rn) BRANDIE Valencia Service: ? 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 Last discharge within 30 days: No Advance Directive: Current Advance Directive: None Coil Binder Attempted to Assist with AD Completion: Yes Action: Education Provided Health LiteracyHow often do you need to have someone help you when you read instructions, pamphlets, or other written material from your doctor or pharmacy? : 1 - Never How confident are you filling out medical forms by yourself?: 2 - Quite a bit If Patient scores > 3 on either question, the following interventions were put into place:: Patient did not score > 3 on either question. Baseline Mental Status Prior to this Illness what was the patient's Baseline Mental Status?: Alert AND Oriented Prior to this illness, has anyone described the patient having any of the following behaviors?: Not Applicable Relationship of the informant to the patient:: Self Functional Status: Independent Does Patient Currently Receive Any Community Services or Home Care?: None Equipment Prior to Admission: Feeding tube and supplies Has the Patient Been in a Nursing Home Facility in the Past 30 days?: No SOCIAL: Primary Contact: Extended Emergency Contact Information Primary Emergency Contact: Khalida Anaya Mobile Relation: Sister Secondary Emergency Contact: Lucero Chaves Mobile Relation: Mother Caregiver AssessmentCaregiver is ready, willing and able to meet the patient's needs as recommended by the inter-professional team:: No Caregiver needed Does the patient have an acute stroke diagnosis, or has the patient had a stroke during this admission?: No Patient's perception of need for this admission: Medication Adherance I am convinced of the importance of my prescription medication: 0 - Agree Completely I worry that my prescription medication will do more harm than good to me : 0 - Disagree Mostly I feel financially burdened by my [id number] expenses for my prescription medication:: 0 - Disagree Mostly Risk Score: 0 Patient is categorized as: Low risk < 2 Are you interested in bedside delivery of your medications? Not known ASSESSMENT AND PLAN: Medical Needs: Medical Needs: Two or more chronic diseases;Nutritional Nutrition Needs: Tube Feed Psychosocial Needs: Psychosocial Needs: None FREEDOM OF CHOICE EXPLAINED: Marlette of Choice Given: No (No new placeement needed and to continue with [facility]) POTENTIAL TRANSITION PLANS Home Care;Home Care Pharmacy Patient's young son lives with her, and when asked, she states that she is independent. Patient is on home enteral tube feedings via jejunostomy and here for malfunctioning tube. Provider is [facility] and referral sent. Patient is independent with tube feedings and she states that prior to malfunction she had been doing well with tube feedings. Patient verbalizing that she recently has gone through a difficult divorce and is seeing therapist every other week, and feels good about herself and therapy sessions have been beneficial. Care Management will plan to continue to follow patient during hospitalization for discharge needs. SIGNATURE: Anaid Valencia RN PATIENT NAME: Maricarmen Anderson DATE: September 29, 2020 TIME: 11:04 AM PAGER/CONTACT #: [id number] Normal [facility] CBCon 09-29-2020 Absolute nRBC <0.01 Normal <0.01 [facility] Comment on above: Performed By: #### P REALB ####[address] [phone] Erythrocyte distribution width (RBC) [Ratio] 15.3 % High 11.5-15.0 [facility] Comment on above: Performed By: #### P REALB ####[address] [phone] Hematocrit (Bld) [Volume fraction] 30.3 % Low 36.0-46.0 [facility] Comment on above: Performed By: #### P REALB ####[address] [phone] Hemoglobin (Bld) [Mass/Vol] 9.1 g/dL Low 11.5-15.5 [facility] Comment on above: Performed By: #### P REALB ####[address] [phone] MCH 25.9 pG Low 26.0-34.0 [facility] Comment on above: Performed By: #### P REALB ####[address] [phone] MCHC (RBC) [Mass/Vol] 30.0 g/dL Low 30.5-36.0 [facility] Comment on above: Performed By: #### P REALB ####[address] [phone] MCV (RBC) [Entitic vol] 86.3 fL Normal 80.0-100.0 [facility] Comment on above: Performed By: #### P REALB ####[address] [phone] Platelet mean volume (Bld) [Entitic vol] 10.6 fL Normal 9.0-12.7 [facility] Comment on above: Performed By: #### P REALB ####[address] [phone] Platelets (Bld) [#/Vol] 170 10*3/uL Normal 150-400 [facility] Comment on above: Performed By: #### P REALB ####[address] [phone] RBC (Bld) [#/Vol] 3.51 10*6/uL Low 3.90-5.20 [facility] Comment on above: Performed By: #### P REALB ####[facility] [place] [place] [address] [phone] WBC (Bld) [#/Vol] 6.60 10*3/uL Normal 3.70-11.00 [facility] Comment on above: Performed By: #### P REALB ####[address] [phone] CNDSon 09-29-2020 CNDS HNO ID: [id number] Author: Maynor Manley DO Service: General Surgery Author Type: Resident Type: Discharge Summary Filed: 09/29/2020 11:11 AM Note Text: ----- Attestation signed by Regina Mikaela at 09/29/2020 11:15 AM Attending Note I evaluated the patient and personally participated in the edward components. I agree with the resident's findings and plan as documented and have discussed the case and management of the patient's care with the resident. Plan of care discussed with: Patient. Signature: Regina AlDO Date: September 29, 2020 Time: 11:15 AM ----- DISCHARGE NOTE (Patient Admitted Less than 48 Hours) SERVICE DATE: 09/29/2020 SERVICE TIME: 11:10 AM ADMISSION DATE: 09/28/2020 DISCHARGE DISPOSITION: Home/Self Care GENERAL: Well appearing, alert and in no acute distress HEAD: Atraumatic, normocephalic, no masses, lesions, tenderness or abnormalities EYES: Anicteric sclera, pupils are equally round and reactive to light, EOM intact HEART: Regular rate and rhythm LUNGS: Non labored breathing, symmetric bilateral chest expansion with each breath. ABDOMEN: Soft, nontender, no palpable organomegaly, no rebound tenderness, rigidity, guarding, peritonitis signs. J tube was removed at the bedside. Pt tolerated procedure well. Minimal pain EXTREMITY: Normal exam of the extremities. No clubbing, cyanosis, or edema. The remainder of the physical exam is noncontributory. DIET: As tolerated ACTIVITY AFTER DISCHARGE: Resume pre-hospital activity FOLLOW UP CARE REQUIRED: Dr. Eng this week DISCHARGE MEDICATIONS (ONLY ACTIVATE WHEN READY TO DISCHARGE): Current Discharge Medication List CONTINUE these medications which have NOT CHANGED acetaZOLAMIDE (DIAMOX) 250 mg Take 250 mg by mouth twice daily. lamoTRIgine (LaMICtal) 25 mg Take 25 mg by mouth twice daily. HYDROcodone-acetaminophen (NORCO) 1 tablet Take 1 tablet by mouth every 8 hours as needed. UBRELVY 100 mg Take 100 mg by mouth as needed. topiramate (TOPAMAX) 100 mg Take 100 mg by mouth once daily. Qty: 120 capsule Refills: 0 pantoprazole (PROTONIX) 40 mg Take 40 mg by mouth twice daily before meals (0600/1600). Qty: 1200 mL Refills: 0 linaclotide (LINZESS) 145 mcg Take 145 mcg by mouth once daily. cholecalciferol (VITAMIN D3) 1,000 Units Take 1,000 Units by mouth twice daily. acetaminophen (TYLENOL) 500 mg Take 500 mg by mouth every 8 hours as needed. EMGALITY SYRINGE 1 mL Inject 1 mL subcutaneously once every month. ondansetron orally disintegrating (ZOFRAN ODT) 4 mg Take 4 mg by mouth every 4 hours as needed for Nausea/Vomiting. Qty: 8 tablet Refills: 0 promethazine (PHENERGAN) 25 mg Take 25 mg by mouth every 6 hours as needed. sertraline (ZOLOFT) 200 mg Take 200 mg by mouth daily at bedtime. Qty: 60 tablet Refills: 0 NaCl 0.9% 1,000 mL Inject 1,000 mL intravenously one time a week. Qty: 1000 mL Refills: 3 tiZANidine (ZANAFLEX) 4 mg Take 4 mg by mouth daily at bedtime for Muscle Spasm. promethazine (PHENERGAN) 25 mg 25 mg by RECTAL route every 6 hours as needed. Qty: 180 Suppository Refills: 6 Associated Diagnoses:Gastroparesis FINAL DIAGNOSIS: PEJ tube pain SIGNATURE: Maynor Manley DO PATIENT NAME: Maricarmen Anderson DATE: September 29, 2020 TIME: 11:09 AM [facility] CT ABD/PEL WO IVCONon 2020 CT ABD/PEL WO IVCON * * *Final Report* * * DATE OF EXAM: Sep 28 2020 10:39PM [facility] 0531 - CT ABD/PEL WO IVCON /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 drug/alcohol abuse in the past. - Sexual activity: Yes Partners: Male Comment: , since 2005 ALLERGIES Allergen Reactions - Dilaudid [Hydromorp* Itching Review of Systems Constitutional: Negative for activity change, appetite change, chills, diaphoresis, fever and unexpected weight change. HENT: Negative for congestion, facial swelling, rhinorrhea and trouble swallowing. Eyes: Negative for discharge. Respiratory: Negative for cough, chest tightness and shortness of breath. Cardiovascular: Negative for chest pain. Gastrointestinal: Positive for abdominal pain. Negative for abdominal distention, diarrhea, nausea and vomiting. Genitourinary: Negative for dysuria. Skin: Negative for rash. Allergic/Immunologic: Negative for immunocompromised state. Neurological: Negative for headaches. Hematological: Negative for adenopathy. Psychiatric/Behavioral: Negative for agitation and behavioral problems. All other systems reviewed and are negative. Physical Exam BP 123/89 Pulse 62 Temp (Src) 97.5 (Oral) Resp 20 Ht 5' 6 (1.68m) Wt 230 lb (104.3kg) SpO2 100% LMP 09/13/2020 BMI 37.14 kg/(m2). O2 Therapy: Room Air Physical Exam Vitals and nursing note reviewed. Constitutional: General: She is not in acute distress. Appearance: Normal appearance. She is normal weight. She is not ill-appearing, toxic-appearing or diaphoretic. HENT: Head: Normocephalic and atraumatic. Right Ear: External ear normal. Left Ear: External ear normal. Nose: No rhinorrhea. Mouth/Throat: Mouth: Mucous membranes are moist. Pharynx: No posterior oropharyngeal erythema. Eyes: General: Right eye: No discharge. Left eye: No discharge. Conjunctiva/sclera: Conjunctivae normal. Cardiovascular: Rate and Rhythm: Normal rate and regular rhythm. Pulses: Radial pulses are 2+ on the right side and 2+ on the left side. Dorsalis pedis pulses are 2+ on the right side and 2+ on the left side. Heart sounds: Normal heart sounds, S1 normal and S2 normal. No murmur heard. Pulmonary: Effort: Pulmonary effort is normal. No respiratory distress. Breath sounds: Normal breath sounds. No decreased breath sounds, wheezing, rhonchi or rales. Abdominal: General: Abdomen is flat. Bowel sounds are normal. Palpations: Abdomen is soft. There is no shifting dullness, fluid wave, hepatomegaly, splenomegaly, mass or pulsatile mass. Tenderness: There is no abdominal tenderness. There is no right CVA tenderness, left CVA tenderness or guarding. Negative signs include Reed's sign, McBurney's sign and obturator sign. Hernia: No hernia is present. Comments: Patient has J-tube in site there is no active bleeding patient has tenderness with any sort of movement of the (more content not included)... Normal [facility] Lipaseon 09-28-2020 Lipase [Catalytic activity/Vol] 30 U/L Normal 16-61 [facility] Basic Metabolic Panlon 05-29 Anion gap [Moles/Vol] 10 mmol/L Normal 0-15 [facility] Calcium [Mass/Vol] 9.2 mg/dL Normal 8.5-10.2 [facility] Chloride [Moles/Vol] 106 mmol/L High 97-105 [facility] CO2 [Moles/Vol] 23 mmol/L Normal 22-30 [facility] Creatinine [Mass/Vol] 0.78 mg/dL Normal 0.58-0.96 [facility] eGFR- Amer. >60 Normal [facility] eGFR-All Other Races >60 Normal [facility] Comment on above: Result Comment: eGFR (Estimated GFR) Units of measure: mL/min/1.73 meters squared eGFR is derived from the reexpressed MDRD Study equation using the following parameters: serum creatinine, age, gender and race. The creatinine assay has been calibrated to be traceable to IDMS. An eGFR <60 mL/min/1.73m2 for >3 months is consistent with chronic kidney disease. Refer to KDOQI guidelines for clinical interpretation. In patients with unstable renal function, e.g. those with acute kidney injury, the eGFR may not accurately reflect actual GFR. Glucose [Mass/Vol] 88 mg/dL Normal 74-99 [facility] Potassium [Moles/Vol] 3.9 mmol/L Normal 3.7-5.1 [facility] Sodium [Moles/Vol] 139 mmol/L Normal 136-144 [facility] Urea nitrogen [Mass/Vol] 8 mg/dL Normal 7-21 [facility] CBC and Differentialon 05-29 Abs Baso <0.03 Normal <0.11 [facility] Abs [place] 0.33 k/uL Normal <0.87 [facility] Abs Neut 2.58 k/uL Normal 1.45-7.50 [facility] Absolute nRBC <0.01 Normal <0.01 [facility] Basophils/100 WBC (Bld) 0.5 % Normal [facility] DTYPE Auto Diff Normal [facility] Eosinophils (Bld) [#/Vol] 0.08 10*3/uL Normal <0.46 [facility] Eosinophils/100 WBC (Bld) 1.9 % Normal [facility] Erythrocyte distribution width (RBC) [Ratio] 13.5 % Normal 11.5-15.0 [facility] Hematocrit (Bld) [Volume fraction] 27.4 % Low 36.0-46.0 [facility] Hemoglobin (Bld) [Mass/Vol] 8.4 g/dL Low 11.5-15.5 [facility] Lymphocytes (Bld) [#/Vol] 1.25 10*3/uL Normal 1.00-4.00 [facility] Lymphocytes/100 WBC (Bld) 29.3 % Normal [facility] MCH 27.6 pG Normal 26.0-34.0 [facility] MCHC (RBC) [Mass/Vol] 30.7 g/dL Normal 30.5-36.0 [facility] MCV (RBC) [Entitic vol] 90.1 fL Normal 80.0-100.0 [facility] Monocytes/100 WBC (Bld) 7.7 % Normal [facility] Neutrophils/100 WBC (Bld) 60.6 % Normal [facility] NRBCs 0.0 /100 WBC Normal 0 [facility] Platelet mean volume (Bld) [Entitic vol] 10.9 fL Normal 9.0-12.7 [facility] Platelets (Bld) [#/Vol] 148 10*3/uL Low 150-400 [facility] RBC (Bld) [#/Vol] 3.04 10*6/uL Low 3.90-5.20 [facility] WBC (Bld) [#/Vol] 4.27 10*3/uL Normal 3.70-11.00 [facility] CNDSon 05-29-2020 CN HNO ID: [id number] Author: Deirdre Dejesus Service: General Surgery Author Type: Resident Type: Discharge Summary Filed: 05/30/2020 1:33 PM Note Text: ----- Attestation signed by Clemente Eng at 05/30/2020 1:59 PM Attending Note I evaluated the patient and personally participated in the edward components. I agree with the resident's findings and plan as documented and have discussed the case and management of the patient's care with the resident. Signature: Clemente Eng MD Date: 05/30/2020 Time: 1:59 PM ----- DISCHARGE SUMMARY PATIENT NAME: Maricarmen Anderson ADMISSION DATE: 05/25/2020 DISCHARGE DATE: 05/29/20 Attending Physician: Clemente Eng Code Status: Prior Highest Readmission Risk Score: 24 The 30 day readmissions risk score is derived from an internally validated risk model which evaluates patient level characteristics, utilization history, medication orders and lab results up until the day of discharge. Patients with a score of 40 or above are considered highest risk for readmission. Specific patient level drivers will be listed at the bottom of the summary. Reason for Hospitalization: abdominal pain and vomiting Diagnosis: Active Problems: Mild protein-calorie malnutrition (HCC) Nausea AND vomiting Resolved Problems: * No resolved hospital problems. * Hospital Course as Described to the Patient: You were admitted for abdominal pain and vomiting . 39 yo female who presented to the ED on 05/25/20 with abdominal pain and vomiting. Patient was admitted under the general surgery service for observation. A CT abdomen/pelvis was completed that was negative for any acute abdominal or pelvic process. However, it showed an increase in size of a left adnexal cyst, as well as a subcentimeter kidney lesion. An EGD was performed that was unremarkable. During her admission, she was evaluated by the nutrition team and changes were made to her jejunostomy tube feed regimen. She was advanced to her goal tube feed rate without difficulty. Her pain was controlled. She was determined stable for discharge home on 05/29/20. The general surgery team spoke with the patient regarding the importance of following up on radiology recommendations (6-12 week followup pelvic ultrasound for the adnexal cyst and a kidney MRI in the near future) with her PCP. Operations During Hospitalization: None Procedures During Hospitalization: CT Scan EGD Consulting Teams During Hospitalization: Treatment Team: Attending Provider: Clemente Eng Consulting: Clemente Eng None Patient Condition @ Discharge: Stable Discharge Disposition: Home/Self Care Diet: Resume pre-hospital diet gastroparesis diet and tube feeds Activity: May bathe or shower Wound/Surgical Site Care: ALLERGIES Allergen Reactions - Dilaudid [Hydromorp* Itching Discharge Medications: Discharge Medication List as of 05/29/2020 4:08 PM CONTINUE these medications which have NOT CHANGED acetaZOLAMIDE (DIAMOX) 250 mg tablet Take 250 mg by mouth twice daily. Historical Med, Long-term lamoTRIgine (LAMICTAL) 25 mg tablet Take 25 mg by mouth twice daily. Historical Med, Long-term HYDROcodone-acetaminophen (NORCO) 5-325 mg per tablet Take 1 tablet by mouth every 8 hours as needed. Historical Med ubrogepant (UBRELVY) 100 mg tablet Take 100 mg by mouth as needed. Historical Med linaclotide (LINZESS) 145 mcg capsule Take 1 capsule by mouth once daily. Med Update, Long-term cholecalciferol (VITAMIN D3) 1,000 unit tab tablet Take 1,000 Units by mouth twice daily. Historical Med, Long-term acetaminophen (TYLENOL) 500 mg/15 mL liqd Take 500 mg by mouth every 8 hours as needed. Historical Med ondansetron orally disintegrating (ZOFRAN ODT) 4 mg disintegrating tablet Take 1 tablet by mouth every 4 hours as needed for Nausea/Vomiting. Print RX, Disp-8 tablet, R-0 0.9 % sodium chloride (NACL 0.9%) 0.9% solp Inject 1,000 mL intravenously one time a week. Print RX, Disp-1000 mL, R-3 tiZANidine (ZANAFLEX) 4 mg tablet Take 4 mg by mouth daily at bedtime. Historical Med topiramate (TOPAMAX) 25 mg capsule Take 4 capsules by mouth once daily. Print RX, Disp-120 capsule, R-0, Long-term pantoprazole (PROTONIX) 40 mg/20 mL oral liquid Take 20 mL by mouth twice daily before meals (0600/1600). Print RX, Disp-1200 mL, R-0, Long-term galcanezumab-gnlm (EMGALITY SYRINGE) 120 mg/mL syrg Inject 1 mL subcutaneously once every month. Historical Med promethazine (PHENERGAN) 25 mg tablet Take 25 mg by mouth every 6 hours as needed. Historical Med sertraline (ZOLOFT) 100 mg tablet Take 2 tablets by mouth daily at bedtime. Print RX, Disp-60 tablet, R-0, Long-term promethazine (PHENERGAN) 25 mg suppository 1 Suppository by RECTAL (more content not included)... [facility] NURSING PROGon 05-29-2020 NURSING PROG HNO ID: [id number] Author: Mitchel Coffey) BRANDIE Larry Service: Nursing Author Type: Registered Nurse Type: Nursing Progress Note Filed: 05/29/2020 3:35 PM Note Text: Nursing Progress Note Patient Name: Maricarmen Anderson Patient Location: [place] [address] 0730 Assumed care of patient after report from night RN. 1311 tube feed rate increased to goal rate of 55 ml/hr. Dr. Eng (PCP) plans to discharge today. No distress at this time. Patient expressing eagerness to go home [address] Eng he is to have recording studio internship write up discharge order and instructions. This note was completed by: Mitchel Larry RN [facility] NUTRITIONon 05-29-2020 NUTRITION HNO ID: [id number] Author: Maricarmen Santiago Service: Nutrition Therapy Author Type: Registered Dietitian Type: Nutrition Filed: 05/29/2020 11:16 AM Note Text: NUTRITION THERAPY PROGRESS NOTE SERVICE DATE: 05/29/2020 SERVICE TIME: 11:15 AM Nutrition Assessment: Recommended Malnutrition Diagnosis: Mild Protein-Calorie Malnutrition (05/26/20 1142 : Molly Vázquez) Estimated kilocalorie needs: 2040 Calorie Calculation Method: [place] (with activity factor)(1.2 AF) Estimated protein needs (grams): 89-118 Grams protein determined by: 1.5-2.0 g/kg Care Plan: Continue current diet Increase to goal as tolerated Enteral Nutrition Tube Feeding Formula Type: [employer] Peptide 1.5 Goal Rate (mL/hr x hours): 55 ml/hr to provide: 1320 ml total volume, 1980 kcal, 98 g protein, 898 ml free water Water Flush Volume (mL x frequency: 150 ml x 6 daily to provide: 900 ml free water for total intake of 1798 ml including TF (adjust as needed to maintain normal fluid/electrolyte balance) Recommended Enteral Access: J-tube Monitor and Evaluation: Meet greater than 75% of estimated needs;Monitor fluid/electrolyte balance;Monitor labs, I/Os, vital signs, weight Discharge Recommendations: Enteral Tube Feeding;Diet Diet: per physician Enteral/Tube Feedings: [employer] Peptide 1.5 @ 55 ml/hr Interval History:Pt started on TF [employer] Peptide 1.5. Currently running at 40 ml/hr and pt reporting that she is tolerating well at this time. Will continue to monitor. Anthropometrics: Height: 167.6 cm (5' 6 ) Weight: 99.8 kg (220 lb) Dosing Weight: 99.8 kg (220 lb) Body mass index is 35.51 kg/m?. Weight change percentage over time: stable Intake History: Current Intake: Less than 75% estimated energy needs over: 4 days Current Diet: DIET TUBE FEED - CONTIN WITH TRAY MNT Billing Type: Re-assess/15 min 2 units SIGNATURE: Maricarmen Santiago RD, RON PATIENT NAME: Maricarmen Murrieta Justin DATE: May 29, 2020 TIME: 11:15 AM PAGER: [phone] [facility] ANES POSTPROC EVALon 020 ANES POSTPROC EVAL HNO ID: [id number] Author: Dennis Coulter Service: ? Author Type: Anesthesiologist Type: Anesthesia Postprocedure Evaluation Filed: 05/28/2020 12:32 PM Note Text: POST ANESTHESIA EVALUATION NOTE : 1980 Procedure Summary Date: 05/28/20 Room / Location: OR02 / SP OR Anesthesia Start: 1109 Anesthesia Stop: 1138 Procedure: EGD (N/A Abdomen) Diagnosis: Abdominal pain (Abdominal pain [R10.9]) Surgeons: Clemente Eng Responsible Provider: Dennis Coulter Anesthesia Type: MAC ASA Status: 3 Anesthesia Type: MAC Last vitals Vitals Value Taken Time BP 122/62 05/28/20 1230 Temp 36.5 ?C (97.7 ?F) 05/28/20 1130 Pulse 67 05/28/20 1230 Resp 16 05/28/20 1230 SpO2 90 % 05/28/20 1230 Vitals shown include unvalidated device data. Post Anesthesia Patient Status Patient Evaluation: bedside. Anticipated Disposition: phase 2 then home. Neurological Status: aware and responsive. Pulmonary Status: breathing comfortably on room air Airway Control: returned to baseline unsupported. Cardiovascular Status: stable. Pain Management: clinically adequate Postoperative Hydration: acceptable. Intraoperative Events: no significant anesthesia events Post Operative Nausea/Vomiting Status: no significant post operative nausea or vomiting Anesthetic Observations: Recommendation: continue current plan of care. SIGNATURE: Dennis Coulter DO PATIENT NAME: Maricarmen Anderson DATE: May 28, 2020 TIME: 12:32 PM CSN: [id number] [facility] ANES PRE-OPon 05-28-2020 ANES PRE-OP HNO ID: [id number] Author: Dennis Coulter Service: ? Author Type: Anesthesiologist Type: Anesthesia Preprocedure Evaluation Filed: 05/28/2020 11:31 AM Note Text: ANESTHESIOLOGY DAY OF SURGERY NOTE : 1980 Procedure(s) (LRB): EGD (N/A) Surgeon(s): Clemente Eng Estimated body mass index is 35.51 kg/m? as calculated from the following: Height as of this encounter: 167.6 cm (5' 6 ). Weight as of this encounter: 99.8 kg (220 lb). Most recent hematocrit and potassium results: Hematocrit 26.2 05/28/2020 Potassium 3.4 05/28/2020 Relevant Problems CARDIO (+) Acute embolism and thrombosis of superficial vein of both upper extremities (+) Acute thrombosis of left axillary vein (HCC) (+) Brachial vein thrombosis, left (HCC) GI (+) GERD (gastroesophageal reflux disease) NEURO-PSYCH (+) Headache I - PHYSICAL EVALUATION AIRWAY Patient intubated: No. Mallampati: I. TM distance: >3 FB. Neck ROM: full ROM without neurological symptoms. Mouth opening: adequate. Short neck: yes. Thick neck: yes DENTAL Dental findings: teeth intact. Additional comments: Brittle teeth 2/2 to recurrent vomiting . II - ANESTHESIA PLAN ASA Score: 3 Anesthetic Plan: MAC The patient is not a current smoker. NPO Status: adequate Monitoring plan: standard ASA. Postoperative analgesic plan: multimodal analgesia. Anesthetic Risks, Benefits, Alternatives, Personnel Discussed. Consent obtained from: patient. Patient / Surrogate agrees to blood products: blood products not planned DNR status not reviewed with patient and/or family prior to surgery. Significant changes in the patient condition since the History and Physical, not otherwise documented in primary service progress note: no. No vitals data found for the desired time range. Facility-Administered Medications as of 05/28/2020 Medication Dose Route Frequency - [MAR Hold due to Transfer] sodium chloride 0.9 % (flush) 10 mL (BD POSIFLUSH) 10 mL INTRAVENOUS q 12 H - [MAR Hold due to Transfer] sodium chloride 0.9 % (flush) 20 mL (BD POSIFLUSH) 20 mL INTRAVENOUS PRN - [MAR Hold due to Transfer] heparin 100 unit/mL 500 Units injection 5 mL INTRAVENOUS PRN - lactated ringers infusion 5-30 mL/hr INTRAVENOUS Pre-Op Once - [MAR Hold due to Transfer] iv contrast (radiology procedure) INTRAVENOUS DIRECTED PRN - [MAR Hold due to Transfer] iv contrast (radiology procedure) INTRAVENOUS DIRECTED PRN - [] enteric contrast (radiology procedure) ORAL DIRECTED PRN - [MAR Hold due to Transfer] acetaminophen 650 mg CUP (TYLENOL) 650 mg ORAL/FEEDING TUBE q 6 H - [MAR Hold due to Transfer] ondansetron (PF) 4 mg injection (ZOFRAN) 4 mg INTRAVENOUS q 6 H PRN - [COMPLETED] NaCl 0.9% 1,000 mL iv bolus 1,000 mL INTRAVENOUS ONCE - [COMPLETED] ondansetron (PF) 4 mg injection (ZOFRAN) 4 mg INTRAVENOUS ONCE - [COMPLETED] acetaminophen 1,000 mg tab(s) (TYLENOL) 1,000 mg ORAL ONCE - [COMPLETED] pantoprazole DR 40 mg tab(s) (PROTONIX) 40 mg ORAL ONCE - [MAR Hold due to Transfer] promethazine 25 mg suppository (PHENERGAN) 25 mg RECTAL q 6 H PRN - [MAR Hold due to Transfer] tiZANidine 4 mg tab(s) (ZANAFLEX) 4 mg ORAL/FEEDING TUBE AT BEDTIME - [MAR Hold due to Transfer] sertraline 200 mg tab(s) (ZOLOFT) 200 mg ORAL/FEEDING TUBE AT BEDTIME - [MAR Hold due to Transfer] promethazine 25 mg tab(s) (PHENERGAN) 25 mg ORAL/FEEDING TUBE q 6 H PRN - [MAR Hold due to Transfer] cholecalciferol (Vitamin D3) 1,000 Units oral drops (D--PHOENIX) 1,000 Units ORAL/FEEDING TUBE BID - [MAR Hold due to Transfer] topiramate 105 mg sprinkle cap(s) (TOPAMAX) 105 mg ORAL/FEEDING TUBE DAILY - [MAR Hold due to Transfer] enoxaparin 40 mg injection (LOVENOX) 40 mg SUBCUTANEOUS DAILY - [MAR Hold due to Transfer] pantoprazole 40 mg oral liquid (PROTONIX) 40 mg ORAL/FEEDING TUBE BID - [COMPLETED] influenza vaccine qs 60 mcg (Patients 6 months to 64 years) (PF) 0.5 mL injection (FLUZONE ) 0.5 mL INTRAMUSCULAR ONCE (IMMUNIZATION) - [MAR Hold due to Transfer] dextrose 5% in NaCl 0.45% with 20 mEq/L KCl iv infusion 100 mL/hr INTRAVENOUS CONTINUOUS Outpatient Medications as of 05/28/2020 Medication Sig - linaclotide (LINZESS) 145 mcg capsule Take 1 capsule by mouth once daily. - cholecalciferol (VITAMIN D3) 1,000 unit tab tablet Take 1,000 Units by mouth twice daily. - acetaminophen (TYLENOL) 500 mg/15 mL liqd Take 500 mg by mouth every 8 hours as needed. - ondansetron orally disintegrating (ZOFRAN ODT) 4 mg disintegrating tablet Take 1 tablet by mouth every 4 hours as needed for Nausea/Vomiting. - 0.9 % sodium chloride (NACL 0.9%) 0.9% solp Inject 1,000 mL intravenously one time a week. - tiZANidine (ZANAFLEX) 4 mg tablet Take 4 mg by mouth daily at bedtime. - nutritional supplements (NUTREN 1.5) 0.07 gram-1.5 kcal/mL liqd 1,200 mL/day by FEEDING TUBE route once daily. Osmolite 1.5 or equivalent via Jejunal Tube, Goal r (more content not included)... Normal [facility] Basic Metabolic Panlon 05-28 Anion gap [Moles/Vol] 7 mmol/L Normal 0-15 [facility] Calcium [Mass/Vol] 9.1 mg/dL Normal 8.5-10.2 [facility] Chloride [Moles/Vol] 106 mmol/L High 97-105 [facility] CO2 [Moles/Vol] 29 mmol/L Normal 22-30 [facility] Creatinine [Mass/Vol] 0.68 mg/dL Normal 0.58-0.96 [facility] eGFR- Amer. >60 Normal [facility] eGFR-All Other Races >60 Normal [facility] Comment on above: Result Comment: eGFR (Estimated GFR) Units of measure: mL/min/1.73 meters squared eGFR is derived from the reexpressed MDRD Study equation using the following parameters: serum creatinine, age, gender and race. The creatinine assay has been calibrated to be traceable to IDMS. An eGFR <60 mL/min/1.73m2 for >3 months is consistent with chronic kidney disease. Refer to KDOQI guidelines for clinical interpretation. In patients with unstable renal function, e.g. those with acute kidney injury, the eGFR may not accurately reflect actual GFR. Glucose [Mass/Vol] 86 mg/dL Normal 74-99 [facility] Potassium [Moles/Vol] 3.4 mmol/L Low 3.7-5.1 [facility] Sodium [Moles/Vol] 142 mmol/L Normal 136-144 [facility] Urea nitrogen [Mass/Vol] 6 mg/dL Low 7-21 [facility] CBC and Differentialon 05-28 Abs Baso 0.03 k/uL Normal <0.11 [facility] Abs [place] 0.26 k/uL Normal <0.87 [facility] Abs Neut 2.02 k/uL Normal 1.45-7.50 [facility] Absolute nRBC <0.01 Normal <0.01 [facility] Basophils/100 WBC (Bld) 0.9 % Normal [facility] DTYPE Auto Diff Normal [facility] Eosinophils (Bld) [#/Vol] 0.06 10*3/uL Normal <0.46 [facility] Eosinophils/100 WBC (Bld) 1.8 % Normal [facility] Erythrocyte distribution width (RBC) [Ratio] 13.4 % Normal 11.5-15.0 [facility] Hematocrit (Bld) [Volume fraction] 26.2 % Low 36.0-46.0 [facility] Hemoglobin (Bld) [Mass/Vol] 8.2 g/dL Low 11.5-15.5 [facility] Lymphocytes (Bld) [#/Vol] 0.97 10*3/uL Low 1.00-4.00 [facility] Lymphocytes/100 WBC (Bld) 29.0 % Normal [facility] MCH 27.8 pG Normal 26.0-34.0 [facility] MCHC (RBC) [Mass/Vol] 31.3 g/dL Normal 30.5-36.0 [facility] MCV (RBC) [Entitic vol] 88.8 fL Normal 80.0-100.0 [facility] Monocytes/100 WBC (Bld) 7.8 % Normal [facility] Neutrophils/100 WBC (Bld) 60.5 % Normal [facility] NRBCs 0.0 /100 WBC Normal 0 [facility] Platelet mean volume (Bld) [Entitic vol] 10.7 fL Normal 9.0-12.7 [facility] Platelets (Bld) [#/Vol] 157 10*3/uL Normal 150-400 [facility] RBC (Bld) [#/Vol] 2.95 10*6/uL Low 3.90-5.20 [facility] WBC (Bld) [#/Vol] 3.34 10*3/uL Low 3.70-11.00 [facility] NURSING PROGon 05-28-2020 NURSING PROG HNO ID: [id number] Author: Leander (Rn) Sivakumar, RN Service: ? Author Type: Registered Nurse Type: Nursing Progress Note Filed: 05/29/2020 8:02 AM Note Text: Nursing Progress Note Patient Name: Maricarmen Anderson Patient Location: / Daily Note: 1929 Report received from BRANDIE Ho and barry and care of pt assumed 1944 Safety check performed 2117 Pt assessment completed and pt medicated appropriately 0200 Pt is asleep with no signs of distress at this time. Call bagley in reach 07 Report given to BRANDIE Mcdonough/Radu This note was completed by: Leander Shaver RN [facility] NURSING PROG HNO ID: [id number] Author: Albania VasquezRn) BRANDIE King Service: ? Author Type: Registered Nurse Type: Nursing Progress Note Filed: 05/28/2020 12:43 PM Note Text: Nursing Progress Note Patient Name: Maricarmen Anderson Patient Location: SURGERY CTR POOL/ SURG CTR PO* Daily Note: Verbal order from Dr. Gold for fentanyl and zofran IV for patient's pain and nausea. This note was completed by: ALBANIA King RN [facility] NURSING PROG O ID: [id number] Author: Georgia VasquezRnNorth Mcnair RN Service: Nursing Author Type: Registered Nurse Type: Nursing Progress Note Filed: 05/28/2020 5:11 PM Note Text: Nursing Progress Note Patient Name: Maricarmen Anderson Patient Location: / Daily Note: 0700 Report received from BRANDIE Goodrich. Care assumed. Patient safety maintained via bedside shift report. Ambu-bag and suction equipment at bedside. Bed plugged in. Safety checks completed. 09 Patient assessment completed and documented. 1000 Patient off unit for procedure. 1300 Patient returned to unit. 1345 Tube feed initiated at 20cc/hr per order. 1400 Med list given to surgery for PTAs. This note was completed by: Georgia Mcnair RN Normal [facility] CBC and Differentialon 05-27 Abs Baso <0.03 Normal <0.11 [facility] Abs Horry 0.29 k/uL Normal <0.87 [facility] Abs Neut 2.00 k/uL Normal 1.45-7.50 [facility] Absolute nRBC <0.01 Normal <0.01 [facility] Basophils/100 WBC (Bld) 0.3 % Normal [facility] DTYPE Auto Diff Normal [facility] Eosinophils (Bld) [#/Vol] 0.08 10*3/uL Normal <0.46 [facility] Eosinophils/100 WBC (Bld) 2.2 % Normal [facility] Erythrocyte distribution width (RBC) [Ratio] 13.6 % Normal 11.5-15.0 [facility] Hematocrit (Bld) [Volume fraction] 25.7 % Low 36.0-46.0 [facility] Hemoglobin (Bld) [Mass/Vol] 8.0 g/dL Low 11.5-15.5 [facility] Lymphocytes (Bld) [#/Vol] 1.34 10*3/uL Normal 1.00-4.00 [facility] Lymphocytes/100 WBC (Bld) 36.0 % Normal [facility] MCH 27.9 pG Normal 26.0-34.0 [facility] MCHC (RBC) [Mass/Vol] 31.1 g/dL Normal 30.5-36.0 [facility] MCV (RBC) [Entitic vol] 89.5 fL Normal 80.0-100.0 [facility] Monocytes/100 WBC (Bld) 7.8 % Normal [facility] Neutrophils/100 WBC (Bld) 53.7 % Normal [facility] NRBCs 0.0 /100 WBC Normal 0 [facility] Platelet mean volume (Bld) [Entitic vol] 10.6 fL Normal 9.0-12.7 [facility] Platelets (Bld) [#/Vol] 150 10*3/uL Normal 150-400 [facility] RBC (Bld) [#/Vol] 2.87 10*6/uL Low 3.90-5.20 [facility] WBC (Bld) [#/Vol] 3.72 10*3/uL Normal 3.70-11.[address] [facility] [address] KIDNEY WO/W IVCONon 05-27 CT KIDNEY WO/W IVCON * * *Final Report* * * DATE OF EXAM: May 27 2020 12:32PM SPC 0546 - CT KIDNEY WO/W IVCON / PROCEDURE REASON: Kidney cancer suspected, suspicious mass, eval * * * * Physician Interpretation * * * * RESULT: EXAMINATION: CT ABDOMEN (KIDNEY) WITHOUT AND WITH IV CONTRAST CLINICAL HISTORY: Renal mass characterization. TECHNIQUE: Spiral imaging in three phases through the kidneys and including the abdomen was performed utilizing IV contrast only. No oral contrast was given. Arterial phase MIP, and nephrographic phase oblique coronal and sagittal reformations were created from thin-slice images under physician supervision on the imaging modality workstation. MQ: [id number] Contrast: IV: 140 ml of Omnipaque 300 Oral Contrast: None CT Radiation dose: Integrated dose-length product (DLP) for this visit = 1391.0 mGy*cm. CT Dose Reduction Employed: Automated exposure control (AEC) COMPARISON: CT scan with IV contrast of the abdomen and pelvis 05/26/2020, 12/31/2019 and 07/10/2019. RESULT: Kidneys, adrenals and ureters: Right kidney: Normal, without mass or calculus. Right renal vasculature Arterial anatomy: single. No early branch (< 1cm). Venous anatomy: single. Right ureter: Single ureter. No hydronephrosis. Right adrenal: Normal, no nodules or thickening Left kidney: Exophytic hypodense 0.7 cm lesion in the posterior upper pole of the left kidney is too small to characterize. The lesion has increased in size compared to 0.[address] scan from 07/10/2019. The lesion remained hypodense during all phases of the study, however the attenuation and degree of enhancement cannot be adequately assessed secondary to small size. Left renal vasculature Arterial anatomy: single. No early branch (< 1cm). Venous anatomy: conventional, anterior to the aorta. Left ureter: Single ureter. No hydronephrosis. Left adrenal: Normal, no nodules or thickening Retroperitoneal lymphadenopathy and IVC involvement: No retroperitoneal lymphadenopathy. No IVC tumor thrombus. Abdomen and pelvis: Liver: No mass. Biliary: No bile duct dilation. Gallbladder is absent. Spleen: Mild splenomegaly without interval change.. Pancreas: No mass or duct dilation. GI tract: Gastric bypass. Small hiatal hernia. PEG tube within jejunum. No dilated loop of bowel or bowel wall thickening. Lymph nodes (other): No abdominal or pelvic lymphadenopathy. Mesentery/Peritoneum: No ascites or mass. Retroperitoneum: No mass. Vasculature: The celiac axis and SMA are patent. The portal vein and branches, splenic vein, SMV, and hepatic veins are patent. Abdominal aorta is normal in caliber. Bones/Soft Tissues: Unremarkable Lower thorax: Mild hypoventilatory changes in the dependent lung bases. Client Operations Manager (topogram) images: No additional findings. IMPRESSION: Hypodense 0.7 cm lesion in the upper pole of the left kidney is too small to further characterize. Further evaluation with MRI is recommended. Transcribed Using Voice Recognition Transcribe Date/Time: May 27 2020 12:43P Dictated by: SULAIMAN NUNEZ MD This examination was interpreted and the report reviewed and electronically signed by: SULAIMAN NUNEZ MD on May 27 2020 1:14PM EST [id number] Normal [facility] Comp Metabolic Panelon 05-27 Albumin [Mass/Vol] 3.4 g/dL Low 3.5-5.0 [facility] ALP [Catalytic activity/Vol] 73 U/L Normal 34-123 [facility] ALT [Catalytic activity/Vol] U/L Low 7-38 [facility] Anion gap [Moles/Vol] 12 mmol/L Normal 0-15 [facility] AST [Catalytic activity/Vol] 15 U/L Normal 13-35 [facility] Bilirubin [Mass/Vol] 0.3 mg/dL Normal 0.2-1.3 [facility] Calcium [Mass/Vol] 8.8 mg/dL Normal 8.5-10.2 [facility] Chloride [Moles/Vol] 106 mmol/L High 97-105 [facility] CO2 [Moles/Vol] 24 mmol/L Normal 22-30 [facility] Creatinine [Mass/Vol] 0.70 mg/dL Normal 0.58-0.96 [facility] eGFR- Amer. >60 Normal [facility] eGFR-All Other Races >60 Normal [facility] Comment on above: Result Comment: eGFR (Estimated GFR) Units of measure: mL/min/1.73 meters squared eGFR is derived from the reexpressed MDRD Study equation using the following parameters: serum creatinine, age, gender and race. The creatinine assay has been calibrated to be traceable to IDMS. An eGFR <60 mL/min/1.73m2 for >3 months is consistent with chronic kidney disease. Refer to KDOQI guidelines for clinical interpretation. In patients with unstable renal function, e.g. those with acute kidney injury, the eGFR may not accurately reflect actual GFR. Glucose [Mass/Vol] 99 mg/dL Normal 74-99 [facility] Potassium [Moles/Vol] 3.6 mmol/L Low 3.7-5.1 [facility] Protein [Mass/Vol] 5.7 g/dL Low 6.3-8.0 [facility] Sodium [Moles/Vol] 142 mmol/L Normal 136-144 [facility] Urea nitrogen [Mass/Vol] 5 mg/dL Low 7-21 [facility] NURSING PROGon 05-27-2020 NURSING PROG HNO ID: [id number] Author: Tacho (Rn) BRANDIE Marr Service: ? Author Type: Registered Nurse Type: Nursing Progress Note Filed: 05/28/2020 3:20 AM Note Text: Nursing Progress Note Patient Name: Maricarmen Anderson Patient Location: WA72/ WA-2 Daily Note: 1921 Assumed care of patient, received report. STAT EKG ordered through respiratory for pt stating palpitations. Will start tube feed and hold at midnight for EGD, 05/28. 2114 Assessment complete, see NPR. EKG completed and strip placed in patients chart. 2116 Ordered medications given, see eMAR. 2147 Paged general surgery: 721-2, Ungerer- Patient has [employer] peptide 1.5 ordered, this is not supplied at [facility]. [employer] 1.0 is at bedside, is this okay to use in place? Please advise. Thanks, [place] @ [phone] Tube feed held per orders for EGD, 05/28. This note was completed by: Tacho Marr RN [facility] NURSING PROG HNO ID: [id number] Author: Bibi (Rn) BRANDIE Freeman Service: Nursing Author Type: Registered Nurse Type: Nursing Progress Note Filed: 05/27/2020 7:25 PM Note Text: Nursing Progress Note Patient Name: Maricarmen Anderson Patient [facility]: [id number] Daily Note:0724am updates from optical sales associate nurse. Iv fluids at 50ml/hr per pt's request and surgery already aware. Tolerating tf well and 10ml/hr. 1132am pt resting/napping in bed. con'ts to tolerate tf at 10 ml/hr without c/o. 1541pm after Pt returned from ct of kidneys, verbalized she felt like a balloon. Thus tf has been off. Noted surgery aware. 1637pm plan for egd tomorrow. inpt status. 1649pm noted surgery changed pt's tube feed to [employer] peptide 1.5. will arrive from dietary. 5pm updates to optical sales associate nurse. This note was completed by: Bibi Freeman RN [facility] CBC and Differentialon 05-26 Abs Baso <0.03 Normal <0.11 [facility] Abs Horry 0.32 k/uL Normal <0.87 [facility] Abs Neut 1.63 k/uL Normal 1.45-7.50 [facility] Absolute nRBC <0.01 Normal <0.01 [facility] Basophils/100 WBC (Bld) 0.5 % Normal [facility] DTYPE Auto Diff Normal [facility] Eosinophils (Bld) [#/Vol] 0.07 10*3/uL Normal <0.46 [facility] Eosinophils/100 WBC (Bld) 1.8 % Normal [facility] Erythrocyte distribution width (RBC) [Ratio] 13.6 % Normal 11.5-15.0 [facility] Hematocrit (Bld) [Volume fraction] 27.2 % Low 36.0-46.0 [facility] Hemoglobin (Bld) [Mass/Vol] 8.5 g/dL Low 11.5-15.5 [facility] Lymphocytes (Bld) [#/Vol] 1.85 10*3/uL Normal 1.00-4.00 [facility] Lymphocytes/100 WBC (Bld) 47.4 % Normal [facility] MCH 27.7 pG Normal 26.0-34.0 [facility] MCHC (RBC) [Mass/Vol] 31.3 g/dL Normal 30.5-36.0 [facility] MCV (RBC) [Entitic vol] 88.6 fL Normal 80.0-100.0 [facility] Monocytes/100 WBC (Bld) 8.2 % Normal [facility] Neutrophils/100 WBC (Bld) 42.1 % Normal [facility] NRBCs 0.0 /100 WBC Normal 0 [facility] Platelet mean volume (Bld) [Entitic vol] 10.4 fL Normal 9.0-12.7 [facility] Platelets (Bld) [#/Vol] 150 10*3/uL Normal 150-400 [facility] RBC (Bld) [#/Vol] 3.07 10*6/uL Low 3.90-5.20 [facility] WBC (Bld) [#/Vol] 3.90 10*3/uL Normal 3.70-11.00 [facility] CONSULT PROGon 05-26-2020 CONSULT PROG HNO ID: [id number] Author: Raleigh Srivastava DO Service: General Surgery Author Type: Resident Type: Consult Progress Note Filed: 05/26/2020 5:55 AM Note Text: ----- Attestation signed by Clemente Eng at 05/26/2020 2:57 PM Attending Note I evaluated the patient and personally participated in the edward components. I agree with the resident's findings and plan as documented and have discussed the case and management of the patient's care with the resident. Signature: Clemente Eng MD Date: 05/26/2020 Time: 2:57 PM ----- PROGRESS NOTES - GENERAL SURGERY PATIENT NAME: Maricarmen Anderson SERVICE DATE: 05/26/2020 SERVICE TIME: 5:50 AM ASSESSMENT AND PLAN Nausea, vomiting with inability to tolerate tube feeds Hx of?Marginal Ulcer ?S/p EGD and PEJ tube placement?10/25/2019 Gastroparesis- on tube feeds ?status post partial gastrectomy with Elaine-en-Y reconstruction 10/08 GERD Recent pacemaker placement Recent traumatic brain injury - Will consult nutrition for tube feed evaluation - In the meantime restart nutren 1.5 at 10cc/hr this AM - protonix BID - Anti nausea med - IVFs - Toradol for pain; tylenol as well SUBJECTIVE INTERVAL HISTORY OF PRESENT ILLNESS: VSS. Afebrile. Did not tolerate tube feeds last night as she became nauseous and had abdominal pain. MEDICATIONS: Current Facility-Administered Medications Medication Dose Route Frequency - acetaminophen 500 mg CUP (TYLENOL) 500 mg ORAL/FEEDING TUBE q 6 H PRN - promethazine 25 mg suppository (PHENERGAN) 25 mg RECTAL q 6 H PRN - tiZANidine 4 mg tab(s) (ZANAFLEX) 4 mg ORAL/FEEDING TUBE AT BEDTIME - sertraline 200 mg tab(s) (ZOLOFT) 200 mg ORAL/FEEDING TUBE AT BEDTIME - promethazine 25 mg tab(s) (PHENERGAN) 25 mg ORAL/FEEDING TUBE q 6 H PRN - ondansetron 4 mg tab(s) (ZOFRAN) 4 mg ORAL/FEEDING TUBE q 6 H PRN - cholecalciferol (Vitamin D3) 1,000 Units oral drops (D--PHOENIX) 1,000 Units ORAL/FEEDING TUBE BID - topiramate 105 mg sprinkle cap(s) (TOPAMAX) 105 mg ORAL/FEEDING TUBE DAILY - enoxaparin 40 mg injection (LOVENOX) 40 mg SUBCUTANEOUS DAILY - pantoprazole 40 mg oral liquid (PROTONIX) 40 mg ORAL/FEEDING TUBE BID - influenza vaccine qs 60 mcg (Patients 6 months to 64 years) (PF) 0.5 mL injection (FLUZONE ) 0.5 mL INTRAMUSCULAR ONCE (IMMUNIZATION) - keTORolac 30 mg injection (TORADOL) 30 mg INTRAVENOUS q 6 H PRN - dextrose 5% in NaCl 0.45% with 20 mEq/L KCl iv infusion 100 mL/hr INTRAVENOUS CONTINUOUS OBJECTIVE PHYSICAL EXAM: BP 127/80 Pulse 57 Temp (Src) 98.6 (Oral) Resp 17 Ht 5' 6 (1.68m) Wt 220 lb (99.8kg) SpO2 95% LMP 05/18/2020 BMI 35.53 kg/(m2). O2 Therapy: Room Air No intake or output data in the 24 hours ending 05/26/20 0550 General: NAD, coopertive Resp: No respiratory distress CV: RR Abdomen: Soft, nondistened, nontender to palpation, J tube in place with no signs of infection DATA: Diagnostic tests reviewed for today's visit: CBC, Coags, BMP, Mg, Phos Recent Labs 05/25/20 1524 05/25/20 1521 WBC -- 4.02 HB -- 8.6* HCT -- 26.8* PLT -- 170 NA -- 143 K -- 3.3* CHLOR -- 107* CO2 -- 26 BUN -- 10 CREAT -- 0.62 GLUC -- 88 IC 1.20 -- CA -- 8.9 MG -- 1.9 SIGNATURE: Raleigh SrivastavaDO Pager: DATE: 05/26/2020 TIME: 5:50 AM [facility] CT ABD/PEL W IVCONon 020 CT ABD/PEL W IVCON * * *Final Report* * * DATE OF EXAM: May 26 2020 12:43PM [facility] 0530 - CT ABD/PEL W IVCON / PROCEDURE REASON: Infection, abdomen-pelvis * * * * Physician Interpretation * * * * RESULT: EXAMINATION: CT ABD/PEL W IVCON CLINICAL HISTORY: Infection, abdomen-pelvis TECHNIQUE: CT of the abdomen and pelvis was performed using standard technique, scanning from just above the dome of the diaphragm to the symphysis pubis. MQ: [id number] Contrast: IV: 140 ml of Omnipaque 300 Oral: 900 ml of 50ML Omnipaque [address] Radiation dose: Integrated Dose-length product (DLP) for this visit = 1081.4 mGy*cm. CT Dose Reduction Employed: Automated exposure control (AEC) COMPARISON: 12/31/2019 RESULT: Liver: Unremarkable. Biliary: No biliary ductal dilatation. Gallbladder is surgically absent. Spleen: Unremarkable. No splenomegaly. Pancreas: No mass or duct dilation identified. Adrenals:No mass. Kidneys: Symmetric nephrograms. No hydronephrosis. No calculi identified. Mildly exophytic hypoattenuating but mildly heterogeneous subcentimeter lesion in the left superior pole kidney posteriorly measuring above fluid density and currently measuring 0.8 cm, progressively slightly larger when compared to recent examinations dating back to 05/16/2019, not seen on the examination of 10/21/2018. This raises suspicion for an early small renal cell carcinoma but is incompletely characterized. GI tract: Gastric bypass. Small hiatal hernia. Percutaneous jejunostomy in the Elaine limb without apparent complication. No small bowel obstruction. Oral contrast opacifies the colon. Surgical clips at the base of the cecum. No abnormal bowel wall thickening. Lymph nodes: No abdominal or pelvic adenopathy. Mesentery/Peritoneum: No ascites or mass. Retroperitoneum: No mass. Vasculature: No abdominal aortic or iliac artery aneurysm. The celiac axis and SMA are patent. The portal vein branches and hepatic veins are patent. Pelvis: The bladder is unremarkable. 5.0 cm left adnexal simple appearing cyst. Bones/Soft Tissues: No aggressive osseous lesion. Lower thorax: Minimal bibasilar atelectasis. Partially visualized electrodes in the heart. Client Operations Manager (topogram) images: No additional findings. IMPRESSION: No acute abnormality is identified in the abdomen or pelvis. 5.0 cm simple appearing left adnexal cyst, likely enlarged follicle. Recommend 6-12 week follow-up pelvic ultrasound to ensure resolution. Status post gastric bypass and percutaneous jejunostomy. Small hiatal hernia. Subcentimeter exophytic mildly heterogeneous lesion in the left superior pole kidney is incompletely characterized but progressively larger over the last year, raising suspicion for an early developing renal cell carcinoma. Recommend dedicated triphasic renal MRI or CT. ACTIONABLE RESULT: FOLLOW-UP Acuity: Actionable Findings: Kidneys/Ureters/Bladder/A drenal Routing Code: GU_1 Recommendation: MRI KIDNEY WO/W IVCON TimeFrame: non-urgent, but prompt follow-up. COMMUNICATION: Results will be communicated with the ordering provider via ZUGGI staff message by [employer] Support Services within 2 business days of report finalization. Algorithms for management of incidental imaging findings can be found on the [facility] Intranet Sharepoint site at: [email or web address] [email or web address] Transcribed Using Voice Recognition Transcribe Date/Time: May 26 2020 12:59P Dictated by: ANIKET SIERRA MD This examination was interpreted and the report reviewed and electronically signed by: ANIKET SIERRA MD on May 26 2020 1:24PM EST [id number] ACTIONABLE Invalid Interpretation Code [facility] Metabolic Panelon 05-26 Albumin [Mass/Vol] 3.6 g/dL Normal 3.5-5.0 [facility] ALP [Catalytic activity/Vol] 79 U/L Normal 34-123 [facility] ALT [Catalytic activity/Vol] 6 U/L Low 7-38 [facility] Anion gap [Moles/Vol] 8 mmol/L Normal 0-15 [facility] AST [Catalytic activity/Vol] 13 U/L Normal 13-35 [facility] Bilirubin [Mass/Vol] 0.4 mg/dL Normal 0.2-1.3 [facility] Calcium [Mass/Vol] 9.0 mg/dL Normal 8.5-10.2 [facility] Chloride [Moles/Vol] 106 mmol/L High 97-105 [facility] CO2 [Moles/Vol] 28 mmol/L Normal 22-30 [facility] Creatinine [Mass/Vol] 0.68 mg/dL Normal 0.58-0.96 [facility] eGFR- Amer. >60 Normal [facility] eGFR-All Other Races >60 Normal [facility] Comment on above: Result Comment: eGFR (Estimated GFR) Units of measure: mL/min/1.73 meters squared eGFR is derived from the reexpressed MDRD Study equation using the following parameters: serum creatinine, age, gender and race. The creatinine assay has been calibrated to be traceable to IDMS. An eGFR <60 mL/min/1.73m2 for >3 months is consistent with chronic kidney disease. Refer to KDOQI guidelines for clinical interpretation. In patients with unstable renal function, e.g. those with acute kidney injury, the eGFR may not accurately reflect actual GFR. Glucose [Mass/Vol] 98 mg/dL Normal 74-99 [facility] Potassium [Moles/Vol] 3.5 mmol/L Low 3.7-5.1 [facility] Protein [Mass/Vol] 6.1 g/dL Low 6.3-8.0 [facility] Sodium [Moles/Vol] 142 mmol/L Normal 136-144 [facility] Urea nitrogen [Mass/Vol] 8 mg/dL Normal 7-21 [facility] Coronavirus 2019on 0 SARS-CoV-2 (COVID-19) RNA CRISTINA+probe Ql (Unsp spec) Nasopharyngeal Swab Normal [facility] Comment on above: Performed By: #### C OVID ####[address] [phone] SARS-CoV-2 (COVID-19) RNA CRISTINA+probe Ql (Unsp spec) Negative Normal Negative for COVID19 (SARS CoV2) by PCR. [facility] Comment on above: Result Comment: This test was developed and its performance characteristics determined by [facility]'s Doug [facility]ology [facility] [place]. This test has been authorized by FDA under an Emergency Use Authorization (EUA). This test has been validated in accordance with the FDA's Guidance Document Policy for Diagnostics Testing in Laboratories Certified to Perform High Complexity Testing under CLIA prior to Emergency use Authorization for Coronavirus Disease 2019 during the Public Health Emergency issued on August 20, 2019. Performed By: #### C OVID ####[address] [phone] Folate, Serumon 05-26-2020 Folate [Mass/Vol] 5.7 ng/mL Normal >4.7 [facility] Comment on above: Performed By: #### P THI, VITD, B1WB ####[place] [id number] [place], [place] [phone] Hemoglobin A1con 05-26-2020 Glucose [Mass/Vol] 114 mg/dL Normal [facility] Comment on above: Result Comment: eAG: (Estimated average glucose) is a calculated value from HgbA1c and is payroll representative of the average blood glucose level in the last 2-3 month period. Performed By: #### P REALB, TRANSF #### [facility] [place] [address] [place] [phone] HbA1c (Bld) [Mass fraction] 5.6 % Normal 4.3-5.6 [facility] Comment on above: Result Comment: Amer ican Diabetes Association guidelines indicate that patients with HgbA1c in the range 5.7-6.4% are at increased risk for development of diabetes, and intervention by lifestyle modification may be beneficial. HgbA1c greater or equal to 6.5% is considered diagnostic of diabetes. Performed By: #### P REALB, TRANSF #### [facility] [place] [address] [place] [phone] Iron and TIBCon 05-26-2020 Iron [Mass/Vol] 20 ug/dL Low 41-186 [facility] Comment on above: Performed By: #### P THI, VITD, B1WB ####[facility] [place] [place] [phone] TIBC 341 ug/dL Normal 210-415 [facility] Comment on above: Performed By: #### P THI, VITD, B1WB ####[place] [phone] Transferrin Saturatn 6 % Low 11-46 [facility] Comment on above: Performed By: #### P THI, VITD, B1WB ####[place] [phone] Lipaseon 05-26-2020 Lipase [Catalytic activity/Vol] 112 U/L High 16-61 [facility] Lipid Panel, [place] 020 Cholesterol [Mass/Vol] 188 mg/dL Normal <200 [facility] Comment on above: Result Comment: <200 mg/dL, Desirable 200-239 mg/dL, Borderline high >239 mg/dL, High Performed By: #### P THI, VITD, B1WB ####[facility] [place] [place] [address] [phone] Cholesterol in HDL [Mass/Vol] 57 mg/dL Normal >39 [facility] Comment on above: Result Comment: 40-5 9 mg/dL, Acceptable >59 mg/dL, High: Negative risk factor for coronary heart disease <40 mg/dL, Low: Positive risk factor for coronary heart disease Performed By: #### P THI, VITD, B1WB ####[place] [address] [place] [phone] Cholesterol in LDL [Mass/Vol] 113 mg/dL High <100 [facility] Comment on above: Result Comment: <100 mg/dL, Optimal 100-129 mg/dL, Near optimal/above optimal 130-159 mg/dL, Borderline high 160-189 mg/dL, High >189 mg/dL, Very high Secondary prevention optimal LDL Cholesterol levels are recommended to be < 70 mg/dL Performed By: #### P THI, VITD, B1WB ####[place] [address] [place] [phone] Fasting Time Blood Normal [facility] Comment on above: Performed By: #### P THI, VITD, B1WB ####[address] [place] [phone] LDL:HDL Ratio 1.98 Normal <2.54 [facility] Comment on above: Result Comment: Refe rence: 1. National Cholesterol Education Program ATP III Guideline At-A-Glance Quick Desk Reference: National Heart, Lung, and Blood [place]. National Institutes of Health. 2001: NIH Publication No. 01-3305. 2. An International Atherosclerosis Society position paper: global recommendations for the management of dyslipidemia: executive summary, Atherosclerosis. 2014: 232(2):410-413. Performed By: #### P THI, VITD, B1WB ####[place] [phone] Non HDL Cholesterol 131 mg/dL High <130 [facility] Comment on above: Performed By: #### P THI, VITD, B1WB ####[place] [address] [address] [place] [phone] TC:HDL Ratio 3.30 Normal <5.10 [facility] Comment on above: Performed By: #### P THI, VITD, B1WB ####[place] [address] [address] [place] [phone] Triglyceride [Mass/Vol] 88 mg/dL Normal <150 [facility] Comment on above: Result Comment: <150 mg/dL, Normal 150-199 mg/dL, Borderline high 200-499 mg/dL, High >499 mg/dL, Very high Performed By: #### P THI, VITD, B1WB ####[facility] [address] [place], [place] [phone] VLDL Cholesterol 18 mg/dL Normal <30 [facility] Comment on above: Performed By: #### P THI, VITD, B1WB ####[facility] [address] [place], [place] [phone] Magnesiumon 05-26-2020 Magnesium [Mass/Vol] 2.0 mg/dL Normal 1.7-2.6 [facility] NURSING PROGon 05-26-2020 NURSING PROG HNO ID: [id number] Author: Tacho VasquezRn) BRANDIE Marr Service: ? Author Type: Registered Nurse Type: Nursing Progress Note Filed: 05/27/2020 4:29 AM Note Text: Nursing Progress Note Patient Name: Maricarmen Anderson Patient Location: [place] [address] [address]- Daily Note: 1935 Assumed care of patient, received report. Assessment complete, see NPR. 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 Thanks, Kp @ [phone] IV fluids reduced to 75 ml/hr will monitor how patient tolerates and notify LIP in AM. 0000 IVF reduced to 50 ml/hr per patient request. 0245 Tube feeding restarted at 10 ml/hr start rate, pt previously was not tolerating feeding. 0400 Pt observed asleep in bed, NAD, IVF and tube feed running. This note was completed by: Tacho Marr RN [facility] NURSING PROG HNO ID: [id number] Author: Bibi VasquezRn) BRANDIE Freeman Service: Nursing Author Type: Registered Nurse Type: Nursing Progress Note Filed: 05/26/2020 7:34 PM Note Text: Nursing Progress Note Patient Name: Maricarmen Anderson Patient Location[place] Daily Note:0800am report from optical sales associate nurse. Pt awake resting in bed. 0955am dietican rounding at bedside. Tf on hold for ct of abd/pelvis. 1140am dr. eng has rounded per pt. 1150am covid sent as ordered 1325pm pt delcines on starting tube feeding until ct results available. 1603pm pt awake resting in bed. All blood work collected and sent to lab as ordered. 1934pm report to optical sales associate nurse. This note was completed by: Bibi Freeman RN [facility] NURSING PROG HNO ID: [id number] Author: Rosibel VasquezRnNorth Bonilla, RN Service: Nursing Author Type: Registered Nurse Type: Nursing Progress Note Filed: 05/26/2020 4:08 AM Note Text: Nursing Progress Note Patient Name: Maricarmen Anderson Patient Location[place] Daily Note: 2226 Nutren 1.5 hung at 20 ml/hr. 0000 Pt states she cannot tolerate tube feed. She is nauseous. Notified surgical asst. OK to hold TF for now. This note was completed by: Rosibel Bonilla RN [facility] NUTRITIONon 05-26-2020 NUTRITION HNO ID: [id number] Author: Molly Vázquez Service: Nutrition Therapy Author Type: Registered Dietitian Type: Nutrition Filed: 05/26/2020 11:57 AM Note Text: NUTRITION THERAPY INITIAL ASSESSMENT SERVICE DATE: 05/26/2020 SERVICE TIME: 11:53 AM Nutrition Assessment: Recommended Malnutrition Diagnosis: Mild Protein-Calorie Malnutrition In the context of: Acute Illness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 AND vomiting [R11.2] Allergies: Dilaudid [Hydromorphone (Bulk)] Date Verified: 05/28/20 Lab Values Lab Value Units Date High Low POTA* 3.4 mmol/L 05/28/2020 5.1 3.7 ADRIANNA* 26.2 % 05/28/2020 46.0 36.0 Progress Notes (): Marycarmen Hunt, RN, RN 05/25/2020 12:43 PM Signed Pt c/o nausea, vomiting, ABD pain for the past 2 weeks. She has a J tube, and when ever she pours liquid into it, she vomits. Flaquita Vizcaino, MEDIC 05/25/2020 1:43 PM Signed Pt states she sometimes has a rapid heart rate when she stands to walk. States she had a pacemaker placed in March 2020 at . EKG performed and given to Dr. Tiffanie Hunt RN, RN 05/25/2020 1:50 PM Signed Pt given cup to collect urine specimen Dennis Spence DO, DO 05/25/2020 5:22 PM Signed ED Provider Note Patient Name: Maricarmen Anderson SERVICE DATE: 05/25/20 History Patient presents with: Vomiting The patient is a 39-year-old female with a past medical history of gastroparesis status post gastrectomy, DVT, esophagitis, obesity, GERD, Port-A-Cath placement presents to the emergency department for evaluation of a 2-week history of nausea and vomiting. She is from the [facility]. She did call her surgeon's service and advised her to come to [facility] to be evaluated. Patient does have a J-tube. She is able to flush her J-tube. However, the patient then vomits. She vomits after oral or J-tube feedings. Again, the patient does not have a stomach. She denies blood in the vomit. It is nonbilious. The patient is on Percocet at home. Describes a traumatic brain injury in January and was seen in the [facility]. She is now on prophylactic seizure medications and water pill . Patient is otherwise asymptomatic. Specifically, she denies headache, visual changes, runny nose, ear pain, sore throat, neck pain, neck stiffness, chest pain, shortness of breath, fevers, chills, cough, back pain, changes in her urinary habits, changes in her bowel habits or focal neurologic deficits. She denies tobacco, alcohol and illicit drug use. She is allergic to Dilaudid. PAST MEDICAL HISTORY Diagnosis Date - Acute venous embolism and thrombosis of (more content not included)... Normal [facility] Lipaseon 05-25-2020 Lipase [Catalytic activity/Vol] 54 U/L Normal 16-61 [facility] Magnesiumon 05-25-2020 Magnesium [Mass/Vol] 1.9 mg/dL Normal 1.7-2.6 [facility] NURSING PROGon 05-25-2020 NURSING PROG HNO ID: [id number] Author: Mitchel Coffey) BRANDIE Larry Service: Nursing Author Type: Registered Nurse Type: Nursing Progress Note Filed: 05/25/2020 6:27 PM Note Text: Nursing Progress Note Patient Name: Maricarmen Anderson Patient [place] [address] [id number] patient admitted to room [facility]. Pain reported in upper abdomen 03/31 at this time. Nausea also reported. Calling primary MD for admission orders. Patient has j-tube and uses osmolite when able. No other distress noted at this time. Patient denies SOB or CP. This note was completed by: Mitchel Larry RN [facility] NURSING PROG HNO ID: [id number] Author: Michelle VasquezRn) BRANDIE Zhang Service: Nursing Author Type: Registered Nurse Type: Nursing Progress Note Filed: 05/25/2020 7:14 PM Note Text: Nursing Progress Note Patient Name: Maricarmen Anderson Patient [place] [address] [address] Transfer Note: Patient transferred into room/unit 721, bed 2 from ED in stable condition. Actions taken: No further actions taken at this time. Will continue to monitor and check with patient. 3 Nursing admission database completed; [employer] medication list updated. This note was completed by: Michelle Zhang RN Normal [facility] Urinalysis with Microscopico n 05-25-2020 Bacteria 1+ /HPF Critically abnormal Negative [facility] Bilirubin, Urine Negative Normal Negative [facility] Cast SEE COMMENT Normal 0 [facility] Comment on above: Result Comment: 0 Clarity (U) Slightly Cloudy Critically abnormal Clear [facility] Color (U) Yellow Normal Yellow [facility] Crystals LM Nom (Urine sed) SEE COMMENT Critically abnormal Negative [facility] Comment on above: Result Comment: 3+ Calcium Oxalate Glucose Ql (U) Negative Normal Negative [facility] Hemoglobin/Blood,Ur Negative Normal Negative [facility] Ketones Ql (U) Trace Critically abnormal Negative [facility] Leukest Trace Critically abnormal Negative [facility] Nitrite Ql (U) Negative Normal Negative [facility] pH (U) 6.0 [pH] Normal 5.0-8.0 [facility] Protein, Urine Negative Normal Negative [facility] RBC 0-3 Normal 0-3 [facility] Specific [place], Ur 1.025 Normal 1.005-1.030 [facility] Urobilinogen Qn (U) 1.0 {José'U}/dL Normal 0.2-1.0 [facility] WBC 0-5 Normal 0-5 [facility] SLEEP CENTER REPORTon 2019 [place] [address] SLEEP STUDY REPORT PATIENT NAME: MARICARMEN ANDERSON : 1980 MED REC NO: [id number] ROOM: ACCOUNT NO: [id number] ADMIT DATE: 01/24/2020 PROVIDER: Roseline Decker SLEEP IMPROVEMENT [employer] INTERPRETATION OF CLINICAL POLYSOMNOGRAPHY DATE OF STUDY: 01/24/2020 This is a home sleep study. CLINICAL HISTORY: This is a 5 foot 6 inch patient, who weighs 226 pounds, with a body mass index of 36.4, who was referred for a home sleep study for evaluation of sleep. SLEEP STAGING: Total recording time was 6 hours and 46 minutes. Total evaluation time was 6 hours and 34 minutes. COMPREHENSIVE VENTILATORY MONITORING: There were 2 unclassified apneas, no obstructive apneas, 11 central apneas, no mixed apneas, and 23 hypopneas. This led to an apnea-hypopnea index of 6 per hour. The average oxygenation while awake was 98%, with minimum oxygen saturation down to 83%. EKG MONITORING: Mean heart rate during wakefulness was 53 beats per minute, minimum pulse rate was 40 beats per minute, maximum pulse rate was 104 beats per minute. SNORING DATA: There were 4 snoring occurrences. IMPRESSION: 1. This patient does meet criteria for a very mild obstructive sleep apnea, with some central apneas, and the patient may benefit from CPAP titration versus aggressive weight loss measures, which may in itself resolve sleep apnea. 2. This patient does have some bradycardia during the study, and if clinically indicated, may benefit from a cardiac evaluation. 3. This patient would benefit from treatment of any other coexisting medical condition including obesity, insomnia, anxiety, or depression. 4. Please correlate clinically. ROSELINE ROSLYN ND/V_TTNER_T Doc#: [id number] CC: Roseline Roslyn Normal [facility] Anion gap [Moles/Vol] 5 mmol/L Normal 0-15 [facility] Calcium [Mass/Vol] 9.2 mg/dL Normal 8.5-10.2 [facility] Chloride [Moles/Vol] 106 mmol/L High 97-105 [facility] CO2 [Moles/Vol] 26 mmol/L Normal 22-30 [facility] Creatinine [Mass/Vol] 0.81 mg/dL Normal 0.58-0.96 [facility] Glucose [Mass/Vol] 106 mg/dL High 74-99 [facility] Potassium [Moles/Vol] 3.8 mmol/L Normal 3.7-5.1 [facility] Sodium [Moles/Vol] 137 mmol/L Normal 136-144 [facility] Urea nitrogen [Mass/Vol] 9 mg/dL Normal 7-21 [facility] CASE MANAGEMon 01-02-2020 CASE MANAGEM HNO ID: [id number] Author: Anaid (Rn) BRANDIE Valencia Service: ? Author Type: Registered Nurse Type: Care Mgt Progress Note Filed: 01/02/2020 1:17 PM Note Text: CARE MANAGEMENT DISCHARGE NOTE SERVICE DATE: 01/02/2020 SERVICE TIME: 1315 LOS: 0 days Admission Date: 12/30/2019 DISCHARGE ARRANGEMENT (list agency and phone number) Discharge Arrangement: Home;Home Care pharmacy Provider Name: Dr Clemente Eng CAREGIVER ASSESSMENT: Caregiver is ready, willing and able to meet the patient's needs as recommended by the inter-professional team:: No Caregiver needed Does the patient have an acute stroke diagnosis, or has the patient had a stroke during this admission?: No HANDOFF COMMUNICATION: Handoff to: Other Caregiver Primary Care Physician Name/Phone: Dr. Sotelo Other Caregiver Name/Phone: [facility] [employer] TRANSPORTATION ARRANGEMENTS: Transportation Arrangements: Car ADDITIONAL CONTACT RESOURCES: None Patient surgically cleared for discharge and being discharged to home today on enteral tube feedings. [employer] updated and orders to resume tube feedings sent. SIGNATURE: Anaid Valencia RN PATIENT NAME: Maricarmen Anderson DATE: January 02, 2020 TIME: 1:14 PM PAGER/CONTACT #: [phone] [facility] 01-02-2020 [facility] HNO ID: [id number] Author: Clemente Eng Service: General Surgery Author Type: Physician Type: Discharge Summary Filed: 01/02/2020 12:37 PM Note Text: DISCHARGE SUMMARY PATIENT NAME: Maricarmen Anderson Code Status: Prior Highest Readmission Risk Score: 23 The 30 day readmissions risk score is derived from an internally validated risk model which evaluates patient level characteristics, utilization history, medication orders and lab results up until the day of discharge. Patients with a score of 40 or above are considered highest risk for readmission. Specific patient level drivers will be listed at the bottom of the summary. Admission Date: 12/31/19 Discharge Date: 01/02/20 Additional Provider to Provider Information: Maricarmen Anderson is a 39 y/o F who presents with nausea, vomiting and inability to tolerate tube feeds. Patient states her nausea began 1 week ago. She started to have vomiting and was unable to tolerate her tube feeds. She reports one small episode of hematemesis. She was previously tolerating her tube feeds of Osmolite at goal rate of 50cc/hr. She is passing gas and having bowel movements. Plan is to d/c to home when tolerating tube feeds at 50cc/hr. Transitions of Care Critical Issues: N/A LABS AND PROCEDURES PENDING AT DISCHARGE: No pending results. Ruled Out FOLLOW-UP APPOINTMENTS ALREADY SCHEDULED WITH A [facility] PROVIDER: No future appointments. ALLERGIES Allergen Reactions - Dilaudid [Hydromorp* Itching DISCHARGE MEDICATION: Current Discharge Medication List CONTINUE these medications which have NOT CHANGED acetaminophen (TYLENOL) 500 mg Take 500 mg by mouth every 8 hours as needed. NUTREN 1.5 1,200 mL/day 1,200 mL/day by FEEDING TUBE route once daily. Osmolite 1.5 or equivalent via Jejunal Tube, Goal rate 50 mL/hour, Free water tube flushes 100 ml, 6 times per day. Need tube feed pump and kangaroo bags Qty: 36 Bag Refills: 11 topiramate (TOPAMAX) 100 mg Take 100 mg by mouth once daily. Qty: 120 capsule Refills: 0 pantoprazole (PROTONIX) 40 mg Take 40 mg by mouth twice daily before meals (0600/1600). Qty: 1200 mL Refills: 0 linaclotide (LINZESS) 145 mcg Take 145 mcg by mouth once daily. cholecalciferol (VITAMIN D3) 1,000 Units Take 1,000 Units by mouth twice daily. EMGALITY SYRINGE 1 mL Inject 1 mL subcutaneously once every month. ondansetron orally disintegrating (ZOFRAN ODT) 4 mg Take 4 mg by mouth every 4 hours as needed for Nausea/Vomiting. Qty: 8 tablet Refills: 0 promethazine (PHENERGAN) 25 mg Take 25 mg by mouth every 6 hours as needed. sertraline (ZOLOFT) 200 mg Take 200 mg by mouth daily at bedtime. Qty: 60 tablet Refills: 0 NaCl 0.9% 1,000 mL Inject 1,000 mL intravenously one time a week. Qty: 1000 mL Refills: 3 tiZANidine (ZANAFLEX) 4 mg Take 4 mg by mouth daily at bedtime for Muscle Spasm. promethazine (PHENERGAN) 25 mg 25 mg by RECTAL route every 6 hours as needed. Qty: 180 Suppository Refills: 6 Associated Diagnoses:Gastroparesis GENERAL: Well appearing, alert and in no acute distress SKIN: No obvious skin lesion. No change in skin color, texture changes. Normal turgor. Well healed previous scar HEART: Regular rate and rhythm LUNGS: Non labored breathing, symmetric bilateral chest expansion with each breath. ABDOMEN: Soft, slightly tender on suprapubic region but improved, no palpable organomegaly, no rebound tenderness, rigidity, guarding, peritonitis signs. EXTREMITY: Normal exam of the extremities. No clubbing, cyanosis, or edema. The remainder of the physical exam is noncontributory. The patient's risk for 30-day readmission is determined using the following contributing factors: Pt variables contributing to increased readmission risk: 13 Active Medication Orders 9.1 First Resulted Calcium During Admission 9 Most Recent BUN Result 7 Number of Hospitalizations (12 mos.) 4 Number of Previous ED Visits (6 mos.) 1 Previous ED Visit (6 mos.)? 1 Insurance - Private Coverage 1 History of Anemia 1 Active Anticoagulant TIME OF CARE: Discharge Management: I personally spent greater than 30 minutes involved in the discharge management of this patient. SIGNATURE: Maynor Manley DO PAGER/CONTACT #: DATE: January 02, 2020 TIME: 12:33 PM [facility] NURSING PROGon 01-02-2020 NURSING PROG HNO ID: [id number] Author: Kimmie (Rn) BRANDIE Galo Service: Nursing Author Type: Registered Nurse Type: Nursing Progress Note Filed: 01/02/2020 12:27 PM Note Text: Nursing Progress Note Patient Name: Maricarmen Anderson [place] [facility] [place] [address] [address] Daily Note: 0730: received report from Silvia DIEGO. Assumed care of patient from previous shift nurse. 0830: assessment complete. See npr. Bed low and locked. Call light in place. Personal belongings in reach. 1030: patient resting in bed, TF and IVF running with no complaints. Will continue to monitor. 1225: paged gen surg resident 1226: resident called back, patient would like to discharge. I will also need tube feed prescription for d/c. Resident will verify with attending and then let Me know. This note was completed by: Kimmie Galo, RN [facility] Basic Metabolic [place] 12-31 Anion gap [Moles/Vol] 6 mmol/L Normal 0-15 [facility] Calcium [Mass/Vol] 9.0 mg/dL Normal 8.5-10.2 [facility] Chloride [Moles/Vol] 105 mmol/L Normal 97-105 [facility] CO2 [Moles/Vol] 26 mmol/L Normal 22-30 [facility] Creatinine [Mass/Vol] 0.73 mg/dL Normal 0.58-0.96 [facility] Glucose [Mass/Vol] 92 mg/dL Normal 74-99 [facility] Potassium [Moles/Vol] 3.7 mmol/L Normal 3.7-5.1 [facility] Sodium [Moles/Vol] 137 mmol/L Normal 136-144 [facility] Urea nitrogen [Mass/Vol] 8 mg/dL Normal 7-21 [facility] NURSING PROGon 01-01-2020 NURSING PROG HNO ID: [id number] Author: Silvia VasquezRn) BRANDIE Marquez Service: ? Author Type: Registered Nurse Type: Nursing Progress Note Filed: 01/02/2020 3:03 AM Note Text: Nursing Progress Note Patient Name: Maricarmen Anderson Patient Location: [place] [address] [address] Daily Note: 1906: Received report from BRANDIE Gaxiola. Patient awake and resting in bed. Call light in reach. Will continue to monitor. 2256: Assessment completed. See NPR. Patient in stable condition. All needs are met at this time. Call light in reach. Will continue to monitor. 0200: Patient observed asleep. Eyes closed, even respirations. Bed in lowest position, call light in reach. Will continue to monitor This note was completed by: Silvia Marquez RN [facility] NURSING PROG HNO ID: [id number] Author: Khalida Coffey) BRANDIE Mendes Service: Nursing Author Type: Registered Nurse Type: Nursing Progress Note Filed: 01/01/2020 7:23 PM Note Text: Nursing Progress Note Patient Name: Maricarmen MARVINN: [id number] Patient Location: [place] Daily Note: 735 Resumed care for the patient, received updates from Tiny DIEGO. 07 Tube feed increased to 40 cc/hr. 914 Assessment unchanged as charted. Safety maintained. 1400 Tube feed increased to 50 cc/hr, patient tolerating them well. 1919 Report given to Silvia DIEGO. This note was completed by: Khalida Mendes RN [facility] ALLIED HEALTHon 12-31-2019 [facility] HNO ID: [id number] Author: Uzair Hurst (Tech) Service: Radiology Author Type: Sheet Metal Mechanic Type: Allied Health Filed: 12/31/2019 12:47 AM Note Text: Summary: ct Radiology Service Progress Note PATIENT NAME: Maricarmen Anderson DATE OF SERVICE: December 31, 2019 TIME: 12:46 AM PATIENT IDENTITY VERIFICATION COMPLETED USING TWO (2) IDENTIFIERS: Name and Date of confirmed by patient verbally and Name and Date of confirmed by identification band. FALL SCREENING: Has the patient had 2 falls in the last year or 1 fall with injury or currently using an Ambulatory Assistive Device (Walker, Cane, Wheelchair, Crutches, etc.)? Inpatient: Screened on floor PATIENT GENDER DATA: Female. status: : No status: NO. PATIENT RELEVANT IMPLANT DATA REVIEWED: Not Applicable RADIOLOGY DEPARTMENT: CT; Exam(s) Completed: Abdomen/Pelvis w po AND ivcon PERIPHERAL IV DATA: Site assessment: Clean,Dry and Intact, Site disposition Left in for next appointment SIGNED BY: Uzair Hurst December 31, 2019 12:46 AM [facility] Basic Metabolic Panlon 12-30 Anion gap [Moles/Vol] 8 mmol/L Normal 0-15 [facility] Calcium [Mass/Vol] 8.9 mg/dL Normal 8.5-10.2 [facility] Chloride [Moles/Vol] 105 mmol/L Normal 97-105 [facility] CO2 [Moles/Vol] 25 mmol/L Normal 22-30 [facility] Creatinine [Mass/Vol] 0.62 mg/dL Normal 0.58-0.96 [facility] eGFR- Amer. >60 Normal [facility] eGFR-All Other Races >60 Normal [facility] Comment on above: Result Comment: eGFR (Estimated GFR) Units of measure: mL/min/1.73 meters squared eGFR is derived from the reexpressed MDRD Study equation using the following parameters: serum creatinine, age, gender and race. The creatinine assay has been calibrated to be traceable to IDMS. An eGFR <60 mL/min/1.73m2 for >3 months is consistent with chronic kidney disease. Refer to KDOQI guidelines for clinical interpretation. In patients with unstable renal function, e.g. those with acute kidney injury, the eGFR may not accurately reflect actual GFR. Glucose [Mass/Vol] 81 mg/dL Normal 74-99 [facility] Potassium [Moles/Vol] 3.6 mmol/L Low 3.7-5.1 [facility] Sodium [Moles/Vol] 138 mmol/L Normal 136-144 [facility] Urea nitrogen [Mass/Vol] 9 mg/dL Normal 7-21 [facility] CBCon 12-31-2019 Absolute nRBC <0.01 Normal <0.01 [facility] Erythrocyte distribution width (RBC) [Ratio] 13.2 % Normal 11.5-15.0 [facility] Hematocrit (Bld) [Volume fraction] 28.7 % Low 36.0-46.0 [facility] Hemoglobin (Bld) [Mass/Vol] 9.3 g/dL Low 11.5-15.5 [facility] MCH 29.9 pG Normal 26.0-34.0 [facility] MCHC (RBC) [Mass/Vol] 32.4 g/dL Normal 30.5-36.0 [facility] MCV (RBC) [Entitic vol] 92.3 fL Normal 80.0-100.0 [facility] Platelet mean volume (Bld) [Entitic vol] 10.7 fL Normal 9.0-12.7 [facility] Platelets (Bld) [#/Vol] 151 10*3/uL Normal 150-400 [facility] RBC (Bld) [#/Vol] 3.11 10*6/uL Low 3.90-5.20 [facility] WBC (Bld) [#/Vol] 5.08 10*3/uL Normal 3.70-11.00 [facility] CBC and Differentialon 12-30 Abs Baso 0.03 k/uL Normal <0.11 [facility] Abs [place] 0.49 k/uL Normal <0.87 [facility] Abs Neut 3.99 k/uL Normal 1.45-7.50 [facility] Absolute nRBC <0.01 Normal <0.01 [facility] Basophils/100 WBC (Bld) 0.5 % Normal [facility] DTYPE Auto Diff Normal [facility] Eosinophils (Bld) [#/Vol] 0.04 10*3/uL Normal <0.46 [facility] Eosinophils/100 WBC (Bld) 0.6 % Normal [facility] Erythrocyte distribution width (RBC) [Ratio] 13.1 % Normal 11.5-15.0 [facility] Hematocrit (Bld) [Volume fraction] 30.3 % Low 36.0-46.0 [facility] Hemoglobin (Bld) [Mass/Vol] 9.8 g/dL Low 11.5-15.5 [facility] Lymphocytes (Bld) [#/Vol] 1.70 10*3/uL Normal 1.00-4.00 [facility] Lymphocytes/100 WBC (Bld) 27.2 % Normal [facility] MCH 29.6 pG Normal 26.0-34.0 [facility] MCHC (RBC) [Mass/Vol] 32.3 g/dL Normal 30.5-36.0 [facility] MCV (RBC) [Entitic vol] 91.5 fL Normal 80.0-100.0 [facility] Monocytes/100 WBC (Bld) 7.8 % Normal [facility] Neutrophils/100 WBC (Bld) 63.9 % Normal [facility] NRBCs 0.0 /100 WBC Normal 0 [facility] Platelet mean volume (Bld) [Entitic vol] 11.0 fL Normal 9.0-12.7 [facility] Platelets (Bld) [#/Vol] 177 10*3/uL Normal 150-400 [facility] RBC (Bld) [#/Vol] 3.31 10*6/uL Low 3.90-5.20 [facility] WBC (Bld) [#/Vol] 6.26 10*3/uL Normal 3.70-11.[address] [facility] [address] ABD/PEL W IVCONon 020 CT ABD/PEL W IVCON * * *Final Report* * * DATE OF EXAM: Dec 31 2019 12:49AM SPC 0530 - CT ABD/PEL W IVCON / PROCEDURE REASON: SBO intermittent or low-grade suspected * * * * Physician Interpretation * * * * RESULT: CT ABDOMEN AND PELVIS WITH CONTRAST HISTORY: SBO intermittent or low-grade suspected TECHNIQUE: A localizer scan was obtained. Helical images of the abdomen and pelvis were acquired using a multi detector CT. Coronal reformatted images were obtained. CT Contrast: Omnipaque 240 IV 150 cc 50ML Omnipaque 240 W 850ML Water Oral [address] imaging was performed using a radiation dose length product (DLP) of 847.7 mGy*cm. CT Dose Reduction Employed: mAs-kVp adjusted based on patient size-age COMPARISON: 07/10/2019 RESULT: In the abdomen, the patient is post bariatric surgery with creation of a gastric pouch and gastrojejunostomy. A percutaneous jejunostomy balloon is seen in the left mid abdomen small bowel. The small bowel is not abnormally distended to suggest obstruction. Enteric contrast reaches the colon. The patient is post appendectomy. The solid organs in the abdomen are within normal limits. The patient is post cholecystectomy. In the pelvis, there again appears to be a tubal ligation clip on the left. A surgical clip is not seen in the right pelvis, however. The left adnexa contains cystic areas measuring up to 2 cm. IMPRESSION: Postsurgical changes. No evidence of bowel obstruction. Left adnexa showing cystic areas up to 2 cm in size. Consider sonographic correlation if clinically indicated. Other findings as described in the Result section. Transcribed Using Voice Recognition Transcribe Date/Time: Dec 31 2019 1:24A Dictated by: PRABHAKAR MUHAMMAD MD This examination was interpreted and the report reviewed and electronically signed by: PRABHAKAR MUHAMMAD MD on Dec 31 2019 1:31AM EST [id number] Normal [facility] Comp Metabolic Panelon 12-30 Albumin [Mass/Vol] 3.8 g/dL Normal 3.5-5.0 [facility] ALP [Catalytic activity/Vol] 70 U/L Normal 34-123 [facility] ALT [Catalytic activity/Vol] 9 U/L Normal 7-38 [facility] Anion gap [Moles/Vol] 7 mmol/L Normal 0-15 [facility] AST [Catalytic activity/Vol] 15 U/L Normal 13-35 [facility] Bilirubin [Mass/Vol] 0.3 mg/dL Normal 0.2-1.3 [facility] Calcium [Mass/Vol] 9.1 mg/dL Normal 8.5-10.2 [facility] Chloride [Moles/Vol] 105 mmol/L Normal 97-105 [facility] CO2 [Moles/Vol] 26 mmol/L Normal 22-30 [facility] Creatinine [Mass/Vol] 0.60 mg/dL Normal 0.58-0.96 [facility] eGFR- Amer. >60 Normal [facility] eGFR-All Other Races >60 Normal [facility] Comment on above: Result Comment: eGFR (Estimated GFR) Units of measure: mL/min/1.73 meters squared eGFR is derived from the reexpressed MDRD Study equation using the following parameters: serum creatinine, age, gender and race. The creatinine assay has been calibrated to be traceable to IDMS. An eGFR <60 mL/min/1.73m2 for >3 months is consistent with chronic kidney disease. Refer to KDOQI guidelines for clinical interpretation. In patients with unstable renal function, e.g. those with acute kidney injury, the eGFR may not accurately reflect actual GFR. Glucose [Mass/Vol] 84 mg/dL Normal 74-99 [facility] Potassium [Moles/Vol] 3.4 mmol/L Low 3.7-5.1 [facility] Protein [Mass/Vol] 6.2 g/dL Low 6.3-8.0 [facility] Sodium [Moles/Vol] 138 mmol/L Normal 136-144 [facility] Urea nitrogen [Mass/Vol] 11 mg/dL Normal 7-21 [facility] Coronavirus 2019on 0 SARS-CoV-2 (COVID-19) RNA CRISTINA+probe Ql (Unsp spec) Nasopharyngeal Swab Normal [facility] Comment on above: Performed By: #### P REALB, TRANSF #### [facility] [address] [place], [place] [address] SARS-CoV-2 (COVID-19) RNA CRISTINA+probe Ql (Unsp spec) Negative Normal Negative for COVID19 (SARS CoV2) by PCR. [facility] Comment on above: Result Comment: This test was developed and its performance characteristics determined by [facility]'s [facility] [place]. This test has been authorized by FDA under an Emergency Use Authorization (EUA). This test has been validated in accordance with the FDA's Guidance Document Policy for Diagnostics Testing in Laboratories Certified to Perform High Complexity Testing under CLIA prior to Emergency use Authorization for Coronavirus Disease 2019 during the Public Health Emergency issued on August 20, 2019. Performed By: #### P REALB, TRANSF #### [facility] [address] [place], [place] [address] ED NOTEon 12-31-2019 ED NOTE HNO ID: [id number] Author: Paul Coffey) BRANDIE Culver Service: Emergency Medicine Author Type: Registered Nurse Type: ED Notes Filed: 12/31/2019 12:28 AM Note Text: Patient to CT and then stable for admission to 9th floor, report called to BRANDIE Villaseñor. Patient transported with medic, stable at time of transfer from ED [facility] ED NOTE HNO ID: [id number] Author: Paul Coffey) BRANDIE Culver Service: Emergency Medicine Author Type: Registered Nurse Type: ED Notes Filed: 12/30/2019 11:43 PM Note Text: Patient finished contrast, CT aware [facility] ED NOTE HNO ID: [id number] Author: Paul Coffey) BRANDIE Culver Service: Emergency Medicine Author Type: Registered Nurse Type: ED Notes Filed: 12/30/2019 10:55 PM Note Text: Urine obtained and sent [facility] ED NOTE HNO ID: [id number] Author: Paul (Rn) BRANDIE Culver Service: Emergency Medicine Author Type: Registered Nurse Type: ED Notes Filed: 12/30/2019 10:55 PM Note Text: Covid swab obtained, placed on ice and walked to lab by TAMMIE [facility] ED PROV NOTEon 12-31-2019 ED PROV NOTE HNO ID: [id number] Author: Milton Kate MD Service: Emergency Medicine Author Type: Physician Type: ED Provider Notes Filed: 12/31/2019 7:24 AM Note Text: ED Provider Note Patient Name: Maricarmen Anderson SERVICE DATE: 12/30/19 History Patient presents with: Gastroparesis Patient with history of gastroparesis, GERD, chiari 1 malformation, RNY, gastric ulcer, inappropriate sinus tachycardia with loop recorder, J-tube placed in October presented to ED with chief complaint of nausea and vomiting. Unable to tolerate by mouth ?1 week. Unable to tolerate tube feeds ?3 days. Denies chest pain. Admits mild diffuse abdominal pain. She saw some blood in her emesis today. No diarrhea or syncope. No shortness of breath or fever or chills or myalgia. She's been getting bad muscle cramps last several days. Told to go to ED by Dr. Eng's nurse. PAST MEDICAL HISTORY Diagnosis Date - Acute venous embolism and thrombosis of brachial vein ([facility]) 2013 due to IV infiltrate, 2013, also on OCPs - Eosinophilic esophagitis - Gastroparesis - GERD (gastroesophageal reflux disease) - History of gastric bypass complications - Obesity, Class III, BMI 40-49.9 (morbid obesity) ([facility]) - Port-A-Cath in place patients right upper chest wall PAST SURGICAL HISTORY Procedure Laterality Date - APPENDECTOMY 2009 - CHOLECYSTECTOMY 2009 - EGD multiple - LEFT KNEE AP AND LATERAL 2000 left knee reconstruction and ACL repair - PAST SURGICAL HISTORY OF 10/08/2018 Elaine-en-y gastric bypass - PICC LINE attempted- unsuccessful 06/08 - PICC LINE INSERT/CONSULT 11/10/2013 - PORT right chest wall FAMILY HISTORY Problem Relation Age of Onset - Hypertension Other - Diabetes Mother - Ischemic Heart Disease Father age 56 - other (ALS) Father - No Known Problems Sister Social History Tobacco Use - Smoking status: Never Smoker - Smokeless tobacco: Never Used Substance and Sexual Activity - Alcohol use: No - Drug use: No Comment: denies tx for drug/alcohol abuse in the past. - Sexual activity: Yes Partners: Male Comment: , since 2006 ALLERGIES Allergen Reactions - Dilaudid [Hydromorp* Itching Review of Systems Constitutional: Negative for activity change and fever. HENT: Negative for drooling and sore throat. Eyes: Negative for pain. Respiratory: Negative for shortness of breath. Cardiovascular: Negative for chest pain. Gastrointestinal: Positive for abdominal pain, nausea and vomiting. Genitourinary: Negative for dysuria. Musculoskeletal: Negative for gait problem. Skin: Negative for rash. Allergic/Immunologic: Negative for immunocompromised state. All other systems reviewed and are negative. Physical Exam BP 124/80 Pulse 74 Temp (Src) 98.2 (Oral) Resp 14 Ht 5' 6 (1.68m) Wt 215 lb (97.5kg) SpO2 97% LMP 05/18/2019 BMI 34.72 kg/(m2). O2 Therapy: Room Air Physical Exam Vitals signs reviewed. Constitutional: Appearance: She is well-developed. HENT: Head: Normocephalic and atraumatic. Right Ear: External ear normal. Left Ear: External ear normal. Nose: Nose normal. Eyes: Conjunctiva/sclera: Conjunctivae normal. Pupils: Pupils are equal, round, and reactive to light. Neck: Musculoskeletal: Neck supple. Cardiovascular: Rate and Rhythm: Normal rate and regular rhythm. Heart sounds: No murmur. Pulmonary: Effort: Pulmonary effort is normal. No respiratory distress. Breath sounds: Normal breath sounds. No wheezing. Abdominal: General: There is no distension. Palpations: Abdomen is soft. Tenderness: There is abdominal tenderness. There is no guarding or rebound. Comments: J-tube is clean, dry, intact. mild diffuse abdominal tenderness. Musculoskeletal: Normal range of motion. General: No deformity. Lymphadenopathy: Cervical: No cervical adenopathy. Skin: General: Skin is warm and dry. Capillary Refill: Capillary refill takes less than 2 seconds. Findings: No rash. Neurological: Mental Status: She is alert and oriented to person, place, and time. Comments: No focal neurologic deficit Diagnostic Testing ED Labs Ordered and Reviewed - No data to display Procedures ED Course / Clinical Impression Clinical Impressions as of Dec 29 2244 Non-intractable vomiting with nausea, unspecified vomiting type MDM / Disposition / Plan Surgery evaluated the patient, would like to admit to their service and have blood work and CAT scan performed. Patient is nontoxic-appearing, no peritonitis on physical exam, normal vital signs. Treated with IV fluids. Nausea treated with IV Zofran. Patient admitted in stable condition to service of Dr. Eng. No acute process seen on CT. Disposition The patient was discharged and admitted. Counseled patient regarding lab results, radiology results and suspected diagnosis. As well as the need for follow-up. Discharged home with verbal and written (more content not included)... Normal [facility] Ferritinon 12-31-2019 Ferritin [Mass/Vol] 10.5 ng/mL Low 14.7-205.1 [facility] Ferritin [Mass/Vol] 13.6 ng/mL Low 14.7-205.1 [facility] Comment on above: Performed By: #### P RALPH, TRANSF #### [place] [address] HISTORY PHYSICALon 0 HISTORY PHYSICAL HNO ID: [id number] Author: Raleigh Srivastava DO Service: General Surgery Author Type: Resident Type: HANDP Filed: 12/31/2019 7:01 AM Note Text: ----- Attestation signed by Clemente Eng at 12/31/2019 2:11 PM Attending Note I evaluated the patient and personally participated in the edward components. I agree with the resident's findings and plan with the following revisions and/or additions: CT-A/P and abdominal exam benign, no signs of obstruciton, IVF, restart TF at low rate, stop carafate, change PPI to daily, appreciate nutrition help. Signature: Clemente nEg MD Date: 12/31/2019 Time: 2:10 PM ----- H+P - GENERAL SURGERY PATIENT NAME: Maricarmen Anderson SERVICE DATE: 12/31/2019 SERVICE TIME: am ATTENDING PHYSICIAN: Milton Kate MD PRIMARY CARE PHYSICIAN: Viktor Sotelo MD ASSESSMENT AND PLAN Nausea, vomiting with inability to tolerate tube feeds Hx of Marginal Ulcer S/p EGD and PEJ tube placement 10/25/2019 Gastroparesis- on tube feeds ?status post partial gastrectomy with Elaine-en-Y reconstruction 10/08 GERD - Admit for observation - CT abdomen pelvis with IV and PO contrast while in ED - Labs; including nutrition labs in AM - Keep NPO - IVFs - Continue home protonix and carafate - Lovenox 40mg for DVT prophylaxis - Nutrition consult for tube feed evaluation in AM; will hold tube feeds tonite SUBJECTIVE HISTORY OF PRESENT ILLNESS: Maricarmen Anderson is a 39 year old female with past medical history as outlined above who presents with nausea, vomiting and inability to tolerate tube feeds. Patient states her nausea began 1 week ago. On she started to have vomiting and was unable to tolerate her tube feeds. She reports one small episode of hematemesis this morning. She was previously tolerating her tube feeds of Osmolite at goal rate of 50cc/hr. She is passing gas and having bowel movements. She has had associated aida-umbilical, dull abdominal pain. She is concerned she is dehydrated because she has had leg cramps. Denies any recent weight loss, fevers, chills. She has no cough. PAST MEDICAL HISTORY: PAST MEDICAL HISTORY Diagnosis Date - Acute venous embolism and thrombosis of brachial vein ([facility]) 2013 due to IV infiltrate, 2013, also on OCPs - Eosinophilic esophagitis - Gastroparesis - GERD (gastroesophageal reflux disease) - History of gastric bypass complications - Obesity, Class III, BMI 40-49.9 (morbid obesity) ([facility]) - Port-A-Cath in place patients right upper chest wall PAST SURGICAL HISTORY: PAST SURGICAL HISTORY Procedure Laterality Date - APPENDECTOMY 2009 - CHOLECYSTECTOMY 2009 - EGD multiple - LEFT KNEE AP AND LATERAL 2000 left knee reconstruction and ACL repair - PAST SURGICAL HISTORY OF 10/08/2018 Elaine-en-y gastric bypass - PICC LINE attempted- unsuccessful 06/08 - PICC LINE INSERT/CONSULT 11/10/2013 - PORT right chest wall FAMILY HISTORY: FAMILY HISTORY Problem Relation Age of Onset - Hypertension Other - Diabetes Mother - Ischemic Heart Disease Father age 56 - other (ALS) Father - No Known Problems Sister SOCIAL HISTORY: Social History Tobacco Use - Smoking status: Never Smoker - Smokeless tobacco: Never Used Substance Use Topics - Alcohol use: No - Drug use: No Comment: denies tx for drug/alcohol abuse in the past. MEDICATIONS: (Not in a hospital admission) Current Facility-Administered Medications Medication Dose Route Frequency - NaCl 0.9% iv infusion 125 mL/hr INTRAVENOUS CONTINUOUS - iv contrast (radiology procedure) INTRAVENOUS DIRECTED PRN And - enteric contrast (radiology procedure) ORAL DIRECTED PRN - ondansetron (PF) 4 mg injection (ZOFRAN) 4 mg INTRAVENOUS ONCE ALLERGIES: ALLERGIES Allergen Reactions - Dilaudid [Hydromorp* Itching COMPLETE REVIEW OF SYSTEMS: GENERAL: No weight loss, malaise or fevers HEENT: Negative for frequent or significant headaches NECK: Negative for lumps, goiter, pain and significant neck swelling RESPIRATORY: no cough, sob CARDIOVASCULAR: Negative for chest pain, leg swelling, CHF or palpitations GI: 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 OBJECTIVE PHYSICAL EXAM: BP 124/80 Pulse 74 Temp (Src) 98.2 (Oral) Resp 14 Ht 5' 6 (1.68m) Wt 215 lb (97.5kg) SpO2 97% LMP 05/18/2019 BMI 34.72 kg/(m2). O2 Therapy: Room Air General: Resting in bed, appears stated age, cooperative Head: NCAT Eyes: Conjunctivae clear, sclerae white, EOMI Neck: Supple, no JVD, full ROM CV: RR, s1 and s2 no (more content not included)... Normal [facility] Lipaseon 12-31-2019 Lipase [Catalytic activity/Vol] 33 U/L Normal 16-61 [facility] Magnesiumon 12-31-2019 Magnesium [Mass/Vol] 1.8 mg/dL Normal 1.7-2.6 [facility] NURSING PROGon 12-31-2019 NURSING PROG HNO ID: [id number] Author: Tiny Coffey) BRANDIE Chamberlain Service: Nursing Author Type: Registered Nurse Type: Nursing Progress Note Filed: 01/01/2020 3:51 AM Note Text: Nursing Progress Note Patient Name: Maricarmen Anderson [place] Location[place] [address] Received report from RN. Patient is in the bed resting with no signs of distress. All personal possessions are within reach. Needs are met at this time. Bed is low and locked. Bed alarm is on. 1920 Requested phenergan from pharmacy. 0000 Tube feed increased to 30 ml/hr 0200 pt sleeping This note was completed by: Tiny Chamberlain RN [facility] NURSING PROG HNO ID: [id number] Author: Khalida Coffey) BRANDIE Mendes Service: Nursing Author Type: Registered Nurse Type: Nursing Progress Note Filed: 12/31/2019 7:28 PM Note Text: Nursing Progress Note Patient Name: Maricarmen Anderson Patient Location: [place]/ Daily Note: 0715 Received report from Sheyla DIEGO. 0850 Assessment completed as charted. Patient complains of nausea and pain. Call light within reach and bed in lowest position will continue to monitor. 1100 Diet advanced to full liquids. 1115 Tube feed started. 1730 Tube feed increased to 20 cc/hr. 1924 Report given to Tiny DIEGO. This note was completed by: Khalida Mendes RN [facility] NURSING PROG HNO ID: [id number] Author: Sheyla Martinez Service: ? Author Type: Registered Nurse Type: Nursing Progress Note Filed: 12/31/2019 5:17 AM Note Text: Nursing Progress Note Patient Name: Maricarmen Anderson Patient Location: [facility] Transfer Note: Patient transferred into room/unit 906 in stable condition. Actions taken: No futher actions taken at this time. Will continue to monitor and check with patient. Patient belongings with patient This note was completed by: Sheyla Martinez RN [facility] NURSING PRO HNO ID: [id number] Author: Sheyla Martinez Service: ? Author Type: Registered Nurse Type: Nursing Progress Note Filed: 12/31/2019 5:16 AM Note Text: Nursing Progress Note Patient Name: Maricarmen Anderson Patient Location: [facility] Daily Note: 0027 received report from Paul WILSON, patient going to CT before coming to floor 0045 patient on floor 0048assessment complete, see NPR. Patient's belongings, call light are with in reach. Bed is locked and in lowest position. Patient in no distress at this time. This note was completed by: Sheyla Martinez RN [facility] NUTRITIONon 12-31-2019 NUTRITION HNO ID: [id number] Author: Molly Tello) Gurpreet Service: Nutrition Therapy Author Type: Registered Dietitian Type: Nutrition Filed: 12/31/2019 11:54 AM Note Text: NUTRITION THERAPY INITIAL ASSESSMENT SERVICE DATE: 12/31/2019 SERVICE TIME: 11:52 AM Nutrition Assessment: Recommended Malnutrition Diagnosis: No Malnutrition Identified Nutrition Diagnosis: Problem: Suboptimal protein/energy intake Related to: Inability to consume sufficient nutrients As evidenced by: Patient/family self-report;Nausea;Vomiti ng Estimated kilocalorie needs: 4569-4170 Calorie Calculation Method: 15-20 kcals/kg Estimated protein needs (grams): 71-89 Grams protein determined by: 1.2-1.5 g/kg;[place] [facility] Weight Care Plan: Continue current diet Enteral Nutrition Tube Feeding Formula Type: Nutren 1.5 Goal Rate (mL/hr x hours): 50 ml/hr to provide 1800 kcal, 1200 ml total volume, 82 g protein and 912 ml free water Water Flush Volume (mL x frequency: 100 cc 6 x day (adjust based on oral intake) K being replaced Monitor and Evaluation: Meet greater than 75% of estimated needs;Monitor bowel function;Monitor fluid/electrolyte balance;Monitor labs, I/Os, vital signs, weight;Monitor tolerance to tube feeding Discharge Recommendations: Enteral Tube Feeding;Diet Diet: regular Enteral/Tube Feedings: Nutren 1.5 @ 50 ml/hr or equivalent I have confirmed and edited as necessary the HPI obtained by Dr. Srivastava on 12/31/19 and all reflect current status. HPI: Maricarmen Anderson is a 39 year old female with past medical history as outlined above who presents with nausea, vomiting and inability to tolerate tube feeds. Patient states her nausea began 1 week ago. On she started to have vomiting and was unable to tolerate her tube feeds. She reports one small episode of hematemesis this morning. She was previously tolerating her tube feeds of Osmolite at goal rate of 50cc/hr. She is passing gas and having bowel movements. She has had associated aida-umbilical, dull abdominal pain. She is concerned she is dehydrated because she has had leg cramps. Denies any recent weight loss, fevers, chills. She has no cough. Intake History: Nutrition Intake Prior to Admission: 0-25% estimated energy needs (3-4 days) over: no intake, diet just advanced Pt states she had trouble tolerating TF or anything oral at home for past few days. No obstruction seen on scan. TF an diet just re-ordered to resume. No change in BM per pt report. Current Diet: DIET TUBE FEED - CONTIN WITH TRAY- Nutren 1.5 just ordered with FL diet Anthropometrics: Height: 167.6 cm (5' 6 ) Weight: 97.5 kg (215 lb) Dosing Weight: 97.5 kg (215 lb) Body mass index is 34.7 kg/m?. Obese Weight change percentage over time: fluctuates 215-220# per pt Physical Exam: Subcutaneous fat loss: No fat loss Muscle loss: No muscle loss Potential micronutrient deficiency: No deficiency identified Edema/Ascites: No edema GI Symptoms: Abdominal pain;Nausea;Vomiting Potential Signs of Inflammation: Chronic condition SIGNATURE: Molly Vázquez, MS,RD,LD,[facility] PATIENT NAME: Maricarmen Anderson DATE: December 31, 2019 TIME: 11:51 AM PAGER: [phone] Normal [facility] Phosphoruson 12-31-2019 Phosphate [Mass/Vol] 3.7 mg/dL Normal 2.7-4.8 [facility] Prealbuminon 12-31-2019 Prealbumin [Mass/Vol] 20 mg/dL Normal 17-36 [facility] Comment on above: Performed By: #### P REALB, TRANSF #### [facility] [address] [place] [id number] Transferrinon 12-31-2019 Transferrin [Mass/Vol] 266 mg/dL Normal 200-360 [facility] Comment on above: Performed By: #### P REALB, TRANSF #### [facility] [address] [place], [place] [address] Urinalysis with Microscopico n 12-31-2019 Amorphous Crystal 2+ Normal [facility] Bacteria 4+ /HPF Critically abnormal Negative [facility] Bilirubin, Urine Negative Normal Negative [facility] Cast SEE COMMENT Normal 0 [facility] Comment on above: Result Comment: 0 Clarity (U) Cloudy Critically abnormal Clear [facility] Color (U) Yellow Normal Yellow [facility] Epithelial cells LM Ql (Urine sed) SEE COMMENT Critically abnormal Occasional [facility] Comment on above: Result Comment: 4+ Squamous Epithelial Cells Glucose Ql (U) Negative Normal Negative [facility] Hemoglobin/Blood,Ur Negative Normal Negative [facility] Ketones Ql (U) Trace Critically abnormal Negative [facility] Leukest 2+ Critically abnormal Negative [facility] Nitrite Ql (U) Negative Normal Negative [facility] pH (U) 7.0 [pH] Normal 5.0-8.0 [facility] Protein, Urine Negative Normal Negative [facility] RBC 0-3 Normal 0-3 [facility] Specific [place], Ur 1.025 Normal 1.005-1.030 [facility] Urobilinogen Qn (U) 1.0 {José'U}/dL Normal 0.2-1.0 [facility] WBC 6-10 Critically abnormal 0-5 [facility] PROGRESSon 09-19-2019 PROGRESS HNO ID: [id number] Author: Emelia Baldwin Service: ? Author Type: Physician Type: Progress Notes Filed: 09/19/2019 3:01 PM Note Text: SPINE SURGERY ESTABLISHED This encounter was conducted via virtual visit with the patient's consent DATE OF SERVICE: 09/19/2019 DATE OF LAST VISIT: Visit date not found SUBJECTIVE: HPI: Maricarmen Anderson is a 38 year old female with Chiari malformation following up after recent imaging. She had a few instances of syncope recently. She recently started a new migraine medication which has helped significantly with her headaches. She has felt that the pressure in her head went away. She has no new concerns today. REVIEW OF SYSTEMS: GENERAL: No weight loss or malaise MUSCULOSKELETAL: Negative for joint pain, swelling or muscle pain NEURO: See HPI MEDICATIONS: linaclotide (LINZESS) 145 mcg capsule Take 1 capsule by mouth once daily. pantoprazole DR (PROTONIX) 40 mg tablet Take 1 tablet by mouth DAILY (6 AM). cholecalciferol (VITAMIN D3) 1,000 unit tab tablet Take 1,000 Units by mouth twice daily. acetaminophen (TYLENOL) 500 mg/15 mL liqd Take 500 mg by mouth every 8 hours as needed. galcanezumab-gnlm (EMGALITY SYRINGE) 120 mg/mL syrg Inject 1 mL subcutaneously once every month. sucralfate (CARAFATE) 1 gram tablet Take 1 tablet by mouth twice daily before meals. nutritional supplements (NUTREN 1.5) 0.07 gram-1.5 kcal/mL liqd 1,200 mL/day by FEEDING TUBE route once daily. Goal rate 50 mL/hour Free water tube flushes 146ml, 6 times per dayCan eat full liquid diet and advance to GI soft as tolerated ondansetron orally disintegrating (ZOFRAN ODT) 4 mg disintegrating tablet Take 1 tablet by mouth every 4 hours as needed for Nausea/Vomiting. topiramate (TOPAMAX) 25 mg capsule Take 100 mg by mouth once daily. promethazine (PHENERGAN) 25 mg tablet Take 25 mg by mouth every 6 hours as needed. sertraline (ZOLOFT) 100 mg tablet Take 2 tablets by mouth daily at bedtime. 0.9 % sodium chloride (NACL 0.9%) 0.9% solp Inject 1,000 mL intravenously one time a week. tiZANidine (ZANAFLEX) 4 mg tablet Take 4 mg by mouth daily at bedtime. promethazine (PHENERGAN) 25 mg suppository 1 Suppository by RECTAL route every 6 hours as needed. OBJECTIVE: PHYSICAL EXAM: LMP 05/18/2019 GENERAL APPEARANCE: Well nourished, well developed, and no apparent distress. NEURO PSYCH: Patient oriented to person, place, and time. Mood pleasant. Benign affect. DATA REVIEW:Diagnostic tests reviewed for today's visit, films/specimens were personally reviewed by me: Imaging and outside records reviewed MRI cervical 05/13/2019 IMPRESSION: 1. ?Cerebellar tonsillar ectopia, extending up to 6 mm beyond the foramen magnum. ?Phase contrast imaging demonstrates CSF flow through the craniocervical junction. 2. ?Normal appearance of the cervical spinal cord. 3. ?No significant spinal canal or foraminal stenosis of the cervical spine. ASSESSMENT/PLAN Chiari malformation Normal CSF flow No brainstem mass effect No syringomyelia Improvement in headaches with medication (Emgality) 1. MRI cervical w/o contrast with cine flow in one year 2. Follow up: one year The majority of the visit was spent counseling and/or coordinating care for the patient. The patient was counseled regarding chiari malformation. Total face to face time was 15 minutes. SIGNATURE: Emelia Baldwin MD PATIENT NAME: Maricarmen Anderson DATE: September 19, 2019 TIME: 1:00 PM PAGER: Emelia Baldwin MD [facility] 09-13-2019 [facility] Telephone (NSFRVW) ----- PAIGEMARICARMEN Johnson ([id number]) [address] [facility] Date Time Provider Department 09/13/19 EMELIA BALDWIN NSFRVW During your visit today, we recorded the following information about you: Robert Kingsley 09/13/2019 3:55 PM Signed Patient has been identified by name and date of : Yes Type of form: [employer] Disability Form received via: Fax When form is completed, fax form to fax number provided. [phone] Form has been forwarded to: Nurse [facility] Ángela Luis PA-C 09/14/2019 8:46 AM Signed She has a chiari with normal CSF flow. I will send to Denny and see his opinion. We can set up a virtual visit to discuss her current symptoms. Ángela Luis PA-C 09/16/2019 8:35 AM Signed I have not heard from Denny on this. Maybe we should set her up with a virtual visit on Thursday? Katelynn Joseph Sec 09/20/2019 2:30 PM Signed Per Duane at [facility] at [phone] what is the status of the assisted disability forms sent to us? 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 [Other] Prescriptions as of 09/13/2019 Sig: LINACLOTIDE 145 MCG CAPSULE Take 1 capsule by mouth once * PANTOPRAZOLE 40 MG TABLET,DEL* Take 1 tablet by mouth DAILY * CHOLECALCIFEROL (VITAMIN D3) * Take 1,000 Units by mouth twi* ACETAMINOPHEN 500 MG/15 ML OR* Take 500 mg by mouth every 8 * EMGALITY 120 MG/ML SUBCUTANEO* Inject 1 mL subcutaneously on* SUCRALFATE 1 GRAM TABLET Take 1 tablet by mouth twice * NUTREN 1.5 0.07 GRAM-1.5 KCA* 1,200 mL/day by FEEDING TUBE * Patient not taking: Reported on 08/10/2019 ONDANSETRON 4 MG DISINTEGRATI* Take 1 tablet by mouth every * TOPIRAMATE 25 MG SPRINKLE CAP* Take 100 mg by mouth once ignacio* PROMETHAZINE 25 MG TABLET Take 25 mg by mouth every 6 h* SERTRALINE 100 MG TABLET Take 2 tablets by mouth daily* SODIUM CHLORIDE 0.9 % IV BOLU* Inject 1,000 mL intravenously* Patient not taking: Reported on 04/28/2019 TIZANIDINE 4 MG TABLET Take 4 mg by mouth daily at b* PROMETHAZINE 25 MG RECTAL SUP* 1 Suppository by RECTAL route* Problem List As Of Date 09/13/2019 Noted Resolved Abdominal pain [R10.9] 10/18/2013 05/18/2019 More... Nausea and vomiting [R11.2] 10/18/2013 03/29/2019 More... Left arm swelling [M79.89] 10/18/2013 More... Vaginal bleeding [N93.9] 10/20/2013 More... Menorrhagia [N92.0] 10/20/2013 Acute thrombosis of left axillary vein (HCC) [I*10/20/2013 Brachial vein thrombosis, 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] 10/20/2013 More... Anticoagulation management encounter [Z51.81, Z*10/20/2013 Acute embolism and thrombosis of superficial ve*10/20/2013 Arm edema [R60.0] 10/20/2013 Constipated [K59.00] 10/22/2013 More... Hypokalemia [E87.6] 10/22/2013 10/24/2013 More... Vision abnormalities [H53.9] 10/24/2013 More... Anemia [D64.9] 10/24/2013 More... Eosinophilic esophagitis [K20.0] 11/10/2013 More... Esophagitis [K20.9] 11/24/2013 Gastroparesis [K31.84] 05/20/2018 More... 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 GERD (gastroesophageal reflux disease) [K21.9] More... 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 Headache in front of head [R51] 03/12/2019 03/13/2019 More... 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 PATIENT GENDER DATA: Female. status: : No status: NO. PATIENT RELEVANT IMPLANT DATA REVIEWED: Yes RADIOLOGY DEPARTMENT: MR; Exam(s) Completed: Spine: Cervical spine PERIPHERAL IV DATA: Not applicable SIGNED BY: Uzair Angulo Bill King May 13, 2019 10:22 AM [facility] MRI CERVICAL SPINE WO IVCONo n 05-13-2019 MRI CERVICAL SPINE WO IVCON * * *Final Report* * * DATE OF EXAM: May 13 2019 10:50AM [facility] 0297 - MRI CERVICAL SPINE WO IVCON / PROCEDURE REASON: Chiari I malformation (HCC) * * * * Physician Interpretation * * * * EXAMINATION: MRI CERVICAL SPINE WO IVCON CLINICAL HISTORY: Reported history of Chiari I malformation. TECHNIQUE: Routine cervical spine MR protocol without gadolinium. Phase contrast imaging also obtained to evaluate CSF flow MQ: [id number] COMPARISON: CT cervical spine 04/07/2019 RESULT: Counting reference: Craniocervical junction. Anatomic Variants: None. Alignment: Mild reversal of the cervical lordosis, likely positional. Craniocervical junction: Cerebellar tonsillar ectopia, extending up to 6 mm beyond the foramen magnum. Axial phase contrast imaging demonstrates CSF flow through the craniocervical junction. Cord: The visualized cord is within normal limits of signal intensity and morphology. No evidence of syrinx. Bone marrow signal/fracture: No evidence of pathologic marrow infiltration. No evidence of prior fracture. Cervical soft tissues: The paraspinal soft tissues are within normal limits. C2-C3: Canal and foramina are patent. C3-C4: Canal and foramina are patent. C4-C5: Canal and foramina are patent. C5-C6: Small posterior disc osteophyte complex with minimal narrowing of the spinal canal. Foramina are patent. C6-C7: Canal and foramina are patent. C7-T1: Canal and foramina are patent. IMPRESSION: 1. Cerebellar tonsillar ectopia, extending up to 6 mm beyond the foramen magnum. Phase contrast imaging demonstrates CSF flow through the craniocervical junction. 2. Normal appearance of the cervical spinal cord. 3. No significant spinal canal or foraminal stenosis of the cervical spine. Anatomic Variant: None. Assume 7 cervical vertebrae with counting from the craniocervical junction. 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 Date/Time: May 13 2019 12:52P Dictated by : JON OSBORNE MD This examination was interpreted and the report reviewed and electronically signed by: JON OSBORNE MD on May 13 2019 1:16PM EST [id number] Normal [facility] Vital Signs Date Time Vital Sign Value Performing Clinician Facility 06-10-2024 09:33-0500 Body height 167.64 cm Viktor Sotelo MD Work Phone: [facility] 06-10-2024 09:33-0500 Body mass index (BMI) [Ratio] 43.4 kg/m2 Viktor Sotelo MD Work Phone: [facility] 06-10-2024 09:33-0500 Body weight 122.01 kg Viktor Sotelo MD Work Phone: [facility] 06-10-2024 09:33-0500 Diastolic blood pressure 66 mm[Hg] Viktor Sotelo MD Work Phone: [facility] 06-10-2024 09:33-0500 Heart rate 93 /min Viktor Sotelo MD Work Phone: [facility] 06-10-2024 09:33-0500 Systolic blood pressure 93 mm[Hg] Viktor Sotelo MD Work Phone: [facility] 11-12-2023 [id number] Body height 167.64 cm MD Viktor Sotelo Work Phone: [facility] 11-12-2023 13:23-0400 Body mass index (BMI) [Ratio] 41.1 kg/m2 MD Viktor Sotelo Work Phone: [facility] 11-12-2023 13:23-0400 Body weight 115.66 kg MD Viktor Sotelo Work Phone: [facility] 11-12-2023 13:23-0400 Diastolic blood pressure 73 mm[Hg] MD Viktor Sotelo Work Phone: [facility] 11-12-2023 13:23-0400 Heart rate 81 /min MD Viktor Sotelo Work Phone: [facility] 11-12-2023 13:23-0400 Systolic blood pressure 108 mm[Hg] MD Viktor Sotelo Work Phone: [facility] 01-21-2023 06:55-0400 Body height 167.64 cm MD Viktor Sotelo Work Phone: [facility] 01-21-2023 06:55-0400 Body weight 108.86 kg MD Viktor Sotelo Work Phone: [facility] 01-20-2023 08:36-0400 Body height 167.64 cm Viktor Sotelo Work Phone: [facility] [address] Work Phone: 01-20-2023 08:36-0400 Body mass index (BMI) [Ratio] 39.06 kg/m2 Viktor Sotelo Work Phone: [facility] [address] Work Phone: 01-20-2023 08:36-0400 Body surface area Derived from formula 2.17 m2 Viktor Sotelo Work Phone: [facility] [address] Work Phone: 01-20-2023 08:36-0400 Body weight 109.77 kg Viktor Sotelo Work Phone: [facility] [address] Work Phone: 01-20-2023 08:36-0400 Diastolic blood pressure 80 mm[Hg] Viktor Sotelo Work Phone: [facility] [address] Work Phone: 01-20-2023 08:36-0400 Respiratory rate 60 /min Viktor Sotelo Work Phone: [facility] [address] Work Phone: 01-20-2023 08:36-0400 Systolic blood pressure 122 mm[Hg] Viktor Sotelo Work Phone: [facility] [address] [facility] Work Phone: 12-15-2022 09:00-0400 Body weight 109.04 kg MD Viktor Sotelo Work Phone: [facility] 12-15-2022 07:30-0400 Body temperature 97.9 [degF] MD Viktor Sotelo Work Phone: [facility] 12-15-2022 07:30-0400 Diastolic blood pressure 72 mm[Hg] MD Viktor Sotelo Work Phone: [facility] 12-15-2022 07:30-0400 Heart rate 81 /min MD Viktor Sotelo Work Phone: [facility] 12-15-2022 07:30-0400 SaO2% (BldA) [Mass fraction] 100 % MD Viktor Sotelo Work Phone: [facility] 12-15-2022 07:30-0400 Systolic blood pressure 115 mm[Hg] MD Vkitor Sotelo Work Phone: [facility] 12-14-2022 20:18-0400 Respiratory rate 16 /min MD Viktor Sotelo Work Phone: [facility] 12-12-2022 13:58-0400 Body height 167.64 cm MD Viktor Sotelo Work Phone: [facility] 12-11-2022 20:49-0400 Diastolic blood pressure 87 mm[Hg] MD Viktor Sotelo Work Phone: [facility] 12-11-2022 20:49-0400 Heart rate 70 /min MD Viktor Sotelo Work Phone: [facility] 12-11-2022 20:49-0400 Respiratory rate 18 /min MD Viktor Sotelo Work Phone: [facility] 12-11-2022 20:49-0400 SaO2% (BldA) [Mass fraction] 99 % MD Viktor Sotelo Work Phone: [facility] 12-11-2022 20:49-0400 Systolic blood pressure 132 mm[Hg] MD Viktor Sotelo Work Phone: [facility] 12-11-2022 17:43-0400 Body height 167.64 cm MD Viktor Sotelo Work Phone: [facility] 12-11-2022 17:43-0400 Body temperature 97.7 [degF] MD Viktor Sotelo Work Phone: [facility] 12-11-2022 17:43-0400 Body weight 108.86 kg MD Viktor Sotelo Work Phone: [facility] 11-01-2022 07:24-0400 Body temperature 97.6 [degF] MD Viktor Sotelo Work Phone: [facility] 11-01-2022 07:24-0400 Diastolic blood pressure 66 mm[Hg] MD Viktor Sotelo Work Phone: [facility] 11-01-2022 07:24-0400 Heart rate 67 /min MD Viktor Sotelo Work Phone: [facility] 11-01-2022 07:24-0400 Respiratory rate 16 /min MD Viktor Sotelo Work Phone: [facility] 11-01-2022 07:24-0400 SaO2% (BldA) [Mass fraction] 95 % MD Viktor Sotelo Work Phone: [facility] 11-01-2022 07:24-0400 Systolic blood pressure 104 mm[Hg] MD Viktor Sotelo Work Phone: [facility] 10-31-2022 14:36-0400 Body height 167.64 cm MD Vitkor Sotelo Work Phone: [facility] 10-28-2022 19:02-0400 Body weight 110.67 kg MD Viktor Sotelo Work Phone: [facility] 10-28-2022 17:56-0400 Diastolic blood pressure 66 mm[Hg] MD Viktor Sotelo Work Phone: [facility] 10-28-2022 17:56-0400 Heart rate 57 /min MD Viktor Sotelo Work Phone: [facility] 10-28-2022 17:56-0400 Respiratory rate 16 /min MD Viktor Sotelo Work Phone: [facility] 10-28-2022 17:56-0400 SaO2% (BldA) [Mass fraction] 97 % MD Viktor Sotelo Work Phone: [facility] 10-28-2022 17:56-0400 Systolic blood pressure 132 mm[Hg] MD Viktor Sotelo Work Phone: [facility] 10-28-2022 14:47-0400 Body height 167.64 cm MD Viktor Sotelo Work Phone: [facility] 10-28-2022 14:47-0400 Body temperature 97.8 [degF] MD Viktor Sotelo Work Phone: [facility] 10-28-2022 14:47-0400 Body weight 111.25 kg MD Viktor Sotelo Work Phone: [facility] 10-18-2022 19:10-0400 Diastolic blood pressure 84 mm[Hg] MD Viktor Sotelo Work Phone: [facility] 10-18-2022 19:10-0400 Heart rate 71 /min MD Viktor Sotelo Work Phone: [facility] 10-18-2022 19:10-0400 Respiratory rate 18 /min MD Viktor Sotelo Work Phone: [facility] 10-18-2022 19:10-0400 SaO2% (BldA) [Mass fraction] 97 % MD Viktor Sotelo Work Phone: [facility] 10-18-2022 19:10-0400 Systolic blood pressure 141 mm[Hg] MD Viktor Sotelo Work Phone: [facility] 10-18-2022 16:53-0400 Body temperature 98 [degF] MD Viktor Sotelo Work Phone: [facility] 10-18-2022 16:51-0400 Body height 167.64 cm MD Viktor Sotelo Work Phone: [facility] 10-18-2022 16:51-0400 Body weight 112 kg MD Viktor Sotelo Work Phone: [facility] 09-28-2022 22:35-0400 Diastolic blood pressure 81 mm[Hg] MD Viktor Sotelo Work Phone: [facility] 09-28-2022 22:35-0400 Heart rate 97 /min MD Viktor Sotelo Work Phone: [facility] 09-28-2022 22:35-0400 Respiratory rate 18 /min MD Viktor Sotelo Work Phone: [facility] 09-28-2022 22:35-0400 SaO2% (BldA) [Mass fraction] 96 % MD Viktor Sotelo Work Phone: [facility] 09-28-2022 22:35-0400 Systolic blood pressure 131 mm[Hg] MD Viktor Sotelo Work Phone: [facility] 09-28-2022 21:15-0400 Body temperature 100.7 [degF] MD Viktor Sotelo Work Phone: [facility] 09-28-2022 19:07-0400 Body height 167.64 cm MD Viktor Sotelo Work Phone: [facility] 09-28-2022 19:07-0400 Body weight 114 kg MD Viktor Sotelo Work Phone: [facility] 09-07-2022 15:07-0400 Body temperature 97.8 [degF] MD Viktor Sotelo Work Phone: [facility] 09-07-2022 15:07-0400 Diastolic blood pressure 60 mm[Hg] MD Viktor Sotelo Work Phone: [facility] 09-07-2022 15:07-0400 Heart rate 78 /min MD Viktor Sotelo Work Phone: [facility] 09-07-2022 15:07-0400 SaO2% (BldA) [Mass fraction] 96 % MD Viktor Sotelo Work Phone: [facility] 09-07-2022 15:07-0400 Systolic blood pressure 100 mm[Hg] MD Viktor Sotelo Work Phone: [facility] 09-07-2022 07:30-0400 Respiratory rate 16 /min MD Viktor Sotelo Work Phone: [facility] 09-04-2022 14:15-0400 Body height 167.64 cm MD Viktor Sotelo Work Phone: [facility] 09-04-2022 02:40-0400 Body weight 111.13 kg MD Viktor Sotelo Work Phone: [facility] 08-13-2022 08:18-0500 Body temperature 98.1 [degF] MD Viktor Stoelo Work Phone: [facility] 08-13-2022 08:18-0500 Diastolic blood pressure 82 mm[Hg] MD Viktor Sotelo Work Phone: [facility] 08-13-2022 08:18-0500 Heart rate 60 /min MD Viktor Sotelo Work Phone: [facility] 08-13-2022 08:18-0500 Respiratory rate 16 /min MD Viktor Sotelo Work Phone: [facility] 08-13-2022 08:18-0500 SaO2% (BldA) [Mass fraction] 96 % MD Viktor Sotelo Work Phone: [facility] 08-13-2022 08:18-0500 Systolic blood pressure 126 mm[Hg] MD Viktor Sotelo Work Phone: [facility] 08-11-2022 21:50-0500 Body height 167.64 cm MD Viktor Sotelo Work Phone: [facility] 08-11-2022 21:50-0500 Body weight 114.75 kg MD Viktor Sotelo Work Phone: [facility] 08-05-2022 09:27-0500 Body temperature 98.1 [degF] MD Viktor Sotelo Work Phone: [facility] 08-05-2022 09:27-0500 Respiratory rate 16 /min MD Viktor Sotelo Work Phone: [facility] 08-05-2022 09:07-0500 Diastolic blood pressure 74 mm[Hg] MD Viktor Sotelo Work Phone: [facility] 08-05-2022 09:07-0500 Heart rate 83 /min MD Viktor Sotelo Work Phone: [facility] 08-05-2022 09:07-0500 Systolic blood pressure 124 mm[Hg] MD Viktor Sotelo Work Phone: [facility] 08-05-2022 09:05-0500 Body height 167.64 cm MD Viktor Sotelo Work Phone: [facility] 08-05-2022 09:05-0500 Body weight 115.21 kg MD Viktor Sotelo Work Phone: [facility] 08-02-2022 12:30-0500 Diastolic blood pressure 79 mm[Hg] MD Viktor Sotelo Work Phone: [facility] 08-02-2022 12:30-0500 Heart rate 68 /min MD Viktor Sotelo Work Phone: [facility] 08-02-2022 12:30-0500 Systolic blood pressure 143 mm[Hg] MD Viktor Sotelo Work Phone: [facility] 08-02-2022 12:15-0500 Respiratory rate 18 /min MD Viktor Sotelo Work Phone: [facility] 08-02-2022 10:30-0500 Body temperature 97.2 [degF] MD Viktor Sotelo Work Phone: [facility] 08-02-2022 08:36-0500 SaO2% (BldA) [Mass fraction] 94 % MD Viktor Sotelo Work Phone: [facility] 08-01-2022 22:01-0500 Body height 167.64 cm MD Viktor Sotelo Work Phone: [facility] 08-01-2022 22:01-0500 Body weight 115.21 kg MD Viktor Sotelo Work Phone: [facility] 07-22-2022 10:12-0500 Body height 167.64 cm Viktor Sotelo Work Phone: [facility] [address] Work Phone: 07-22-2022 10:12-0500 Body mass index (BMI) [Ratio] 41.8 kg/m2 Viktor Sotelo Work Phone: [facility] [address] [facility] Work Phone: 07-22-2022 10:12-0500 Body surface area Derived from formula 2.23 m2 Viktor Sotelo Work Phone: [facility] [address] [facility] Work Phone: 07-22-2022 10:12-0500 Body weight 117.48 kg Viktor Sotelo Work Phone: [facility] Work Phone: 07-22-2022 10:12-0500 Diastolic blood pressure 72 mm[Hg] Viktor Sotelo Work Phone: [facility] [address] [facility] Work Phone: 07-22-2022 10:12-0500 Heart rate 73 /min Viktor Sotelo Work Phone: [facility] Work Phone: 07-22-2022 10:12-0500 Systolic blood pressure 114 mm[Hg] Viktor Sotelo Work Phone: [facility] Work Phone: 07-17-2022 15:30-0500 Body temperature 97.9 [degF] MD Viktor Sotelo Work Phone: [facility] 07-17-2022 15:30-0500 Diastolic blood pressure 68 mm[Hg] MD Viktor Sotelo Work Phone: [facility] 07-17-2022 15:30-0500 Heart rate 78 /min MD Viktor Sotelo Work Phone: [facility] 07-17-2022 15:30-0500 Respiratory rate 18 /min MD Viktor Sotelo Work Phone: [facility] 07-17-2022 15:30-0500 SaO2% (BldA) [Mass fraction] 100 % MD Viktor Sotelo Work Phone: [facility] 07-17-2022 15:30-0500 Systolic blood pressure 149 mm[Hg] MD Viktor Sotelo Work Phone: [facility] 07-16-2022 16:29-0500 Body height 167.64 cm MD Viktor Sotelo Work Phone: [facility] 07-15-2022 13:12-0500 Body weight 115.66 kg MD Viktor Sotelo Work Phone: [facility] 07-15-2022 10:53-0500 Body height 167.64 cm MD Viktor Sotelo Work Phone: [facility] 07-15-2022 10:53-0500 Body temperature 98.7 [degF] MD Viktor Sotelo Work Phone: [facility] 07-15-2022 10:53-0500 Body weight 115.85 kg MD Viktor Sotelo Work Phone: [facility] 07-15-2022 10:53-0500 Diastolic blood pressure 80 mm[Hg] MD Viktor Sotelo Work Phone: [facility] 07-15-2022 10:53-0500 Heart rate 72 /min MD Viktor Sotelo Work Phone: [facility] 07-15-2022 10:53-0500 Respiratory rate 20 /min MD Viktor Sotelo Work Phone: [facility] 07-15-2022 10:53-0500 SaO2% (BldA) [Mass fraction] 98 % MD Viktor Sotelo Work Phone: [facility] 07-15-2022 10:53-0500 Systolic blood pressure 149 mm[Hg] MD Viktor Sotelo Work Phone: [facility] 07-09-2022 13:38-0500 Diastolic blood pressure 71 mm[Hg] MD Viktor Sotelo Work Phone: [facility] 07-09-2022 13:38-0500 Heart rate 85 /min MD Viktor Sotelo Work Phone: [facility] 07-09-2022 13:38-0500 Systolic blood pressure 109 mm[Hg] MD Viktor Sotelo Work Phone: [facility] 07-09-2022 11:35-0500 Body temperature 98.1 [degF] MD Viktor Sotelo Work Phone: [facility] 07-09-2022 11:35-0500 Respiratory rate 18 /min MD Viktor Sotelo Work Phone: [facility] 07-09-2022 11:35-0500 SaO2% (BldA) [Mass fraction] 97 % MD Viktor Sotelo Work Phone: [facility] 06-26-2022 22:17-0500 Respiratory rate 16 /min MD Viktor Sotelo Work Phone: [facility] 06-26-2022 21:54-0500 Body temperature 97.3 [degF] MD Viktor Sotelo Work Phone: [facility] 06-26-2022 21:53-0500 Diastolic blood pressure 81 mm[Hg] MD Viktor Sotelo Work Phone: [facility] 06-26-2022 21:53-0500 Heart rate 83 /min MD Viktor Sotelo Work Phone: [facility] 06-26-2022 21:53-0500 Systolic blood pressure 132 mm[Hg] MD Viktor Sotelo Work Phone: [facility] 06-26-2022 21:37-0500 Body height 167.64 cm MD Viktor Sotelo Work Phone: [facility] 06-26-2022 21:37-0500 Body weight 117.93 kg MD Viktor Sotelo Work Phone: [facility] 06-25-2022 22:03-0500 Diastolic blood pressure 78 mm[Hg] MD Viktor Sotelo Work Phone: [facility] 06-25-2022 22:03-0500 Heart rate 90 /min MD Viktor Sotelo Work Phone: [facility] 06-25-2022 22:03-0500 Respiratory rate 18 /min MD Viktor Sotelo Work Phone: [facility] 06-25-2022 22:03-0500 SaO2% (BldA) [Mass fraction] 97 % MD Viktor Sotelo Work Phone: [facility] 06-25-2022 22:03-0500 Systolic blood pressure 127 mm[Hg] MD Viktor Sotelo Work Phone: [facility] 06-25-2022 17:29-0500 Body height 167.64 cm MD Viktor Sotelo Work Phone: [facility] 06-25-2022 17:29-0500 Body temperature 98.3 [degF] MD Viktor Sotelo Work Phone: [facility] 06-25-2022 17:29-0500 Body weight 117 kg MD Viktor Sotelo Work Phone: [facility] 06-25-2022 12:40-0500 Body temperature 97.9 [degF] MD Viktor Sotelo Work Phone: [facility] 06-25-2022 12:40-0500 Diastolic blood pressure 80 mm[Hg] MD Viktor Sotelo Work Phone: [facility] 06-25-2022 12:40-0500 Heart rate 66 /min MD Viktor Sotelo Work Phone: [facility] 06-25-2022 12:40-0500 Respiratory rate 18 /min MD Viktor Sotelo Work Phone: [facility] 06-25-2022 12:40-0500 SaO2% (BldA) [Mass fraction] 98 % MD Viktor Sotelo Work Phone: [facility] 06-25-2022 12:40-0500 Systolic blood pressure 129 mm[Hg] MD Viktor Sotelo Work Phone: [facility] 02-13-2022 07:45-0400 60 1 Viktor Sotelo Work Phone: [facility] [address] [place] Work Phone: Comment on above: [id number] 01-20-2022 19:14-0400 Diastolic blood pressure 64 mm[Hg] MD Viktor Sotelo Work Phone: [facility] 01-20-2022 19:14-0400 Heart rate 64 /min MD Viktor Sotelo Work Phone: [facility] 01-20-2022 19:14-0400 Respiratory rate 18 /min MD Viktor Sotelo Work Phone: [facility] 01-20-2022 19:14-0400 SaO2% (BldA) [Mass fraction] 100 % MD Viktor Sotelo Work Phone: [facility] 01-20-2022 19:14-0400 Systolic blood pressure 107 mm[Hg] MD Viktor Sotelo Work Phone: [facility] 01-20-2022 14:29-0400 Body temperature 98.4 [degF] MD Viktor Sotelo Work Phone: [facility] 01-20-2022 13:07-0400 Body height 167.64 cm MD Viktor Sotelo Work Phone: [facility] 01-20-2022 13:07-0400 Body weight 102.4 kg MD Viktor Sotelo Work Phone: [facility] 01-14-2022 10:20-0400 Diastolic blood pressure 74 mm[Hg] Viktor Sotelo Work Phone: [facility] [address] [facility] Work Phone: 01-14-2022 10:20-0400 Heart rate 65 /min Viktor Sotelo Work Phone: [facility] Work Phone: 01-14-2022 10:20-0400 Systolic blood pressure 110 mm[Hg] Viktor Sotelo Work Phone: [facility] [address] [facility] Work Phone: 01-14-2022 10:19-0400 Body height 167.64 cm Viktor Sotelo Work Phone: [facility] [address] [facility] Work Phone: 01-14-2022 10:19-0400 Body mass index (BMI) [Ratio] 36.68 kg/m2 Viktor Sotelo Work Phone: [facility] [address] [facility] Work Phone: 01-14-2022 10:19-0400 Body surface area Derived from formula 2.11 m2 Viktor Sotelo Work Phone: [facility] [address] [facility] Work Phone: 01-14-2022 10:19-0400 Body weight 103.08 kg Viktor Sotelo Work Phone: [facility] [address] [facility] Work Phone: 12-11-2021 07:30-0400 Body temperature 98.4 [degF] MD Viktor Sotelo Work Phone: [facility] 12-11-2021 07:30-0400 Diastolic blood pressure 66 mm[Hg] MD Viktor Sotelo Work Phone: [facility] 12-11-2021 07:30-0400 Heart rate 86 /min MD Viktor Sotelo Work Phone: [facility] 12-11-2021 07:30-0400 Respiratory rate 16 /min MD Viktor Sotelo Work Phone: [facility] 12-11-2021 07:30-0400 SaO2% (BldA) [Mass fraction] 95 % MD Viktor Sotelo Work Phone: [facility] 12-11-2021 07:30-0400 Systolic blood pressure 128 mm[Hg] MD Viktor Sotelo Work Phone: [facility] 12-10-2021 15:45-0400 Body height 167.64 cm MD Viktor Sotelo Work Phone: [facility] 12-09-2021 14:00-0400 Body mass index (BMI) [Ratio] 35.4 kg/m2 MD Viktor Sotelo Work Phone: [facility] 12-09-2021 09:00-0400 Body weight 99.75 kg MD Viktor Sotelo Work Phone: [facility] 04-30-2021 13:15-0500 Body height 167.64 cm Viktor Sotelo Work Phone: [facility] Work Phone: 04-30-2021 13:15-0500 Body mass index (BMI) [Ratio] 31.47 kg/m2 Viktor Sotelo Work Phone: [facility] Work Phone: 04-30-2021 13:15-0500 Body surface area Derived from formula 1.98 m2 Viktor Sotelo Work Phone: [facility] Work Phone: 04-30-2021 13:15-0500 Body weight 88.45 kg Viktor Sotelo Work Phone: [facility] Work Phone: 04-30-2021 13:15-0500 Diastolic blood pressure 82 mm[Hg] Viktor Sotelo Work Phone: [facility] Work Phone: 04-30-2021 13:15-0500 Heart rate 70 /min Viktor Sotelo Work Phone: [facility]stx[facility] Work Phone: 04-30-2021 13:15-0500 Respiratory rate 18 /min Viktor Sotelo Work Phone: [facility] Work Phone: 04-30-2021 13:15-0500 Systolic blood pressure 118 mm[Hg] Viktor Sotelo Work Phone: [facility] Work Phone: 05-25-2020 17:24-0500 SaO2% (BldA) [Mass fraction] 64 % [facility] Encounters Encounter Date Encounter Type Care Provider Facility Start: 01-02-2025 ambulatory Michael VIVEROS Facili ty:[facility] [place] Start: 07-05-2024 End: 07-05-2024 ambulatory Michael VIVEROS Facility:[facility] Start: 07-05-2024 End: 07-05-2024 Patient encounter procedure Michael VIVEROS [facility] Start: 07-04-2024 End: 07-04-2024 Patient encounter procedure Viktor Sotelo MD Work Phone: [facility] [place] Work Phone: Start: 07-04-2024 End: 07-04-2024 ambulatory Viktor Sotelo MD Work Phone: [facility] Work Phone: Start: 06-27-2024 End: 06-27-2024 ambulatory Tete Snell MD Facility:[facility] Start: 06-21-2024 Registered Recurring Viktor jenkins MD Work Phone: [facility] Start: 06-21-2024 ambulatory Viktor Sotelo Facility :[facility] Start: 06-10-2024 End: 06-10-2024 Patient encounter procedure Viktor Sotelo MD Work Phone: [facility] Work Phone: Start: 06-02-2024 End: 06-02-2024 ambulatory ESTELA CHUNG Facility:[facility] [place] Start: 06-02-2024 End: 06-02-2024 Patient encounter procedure ESTELA CHUNG Executive [facility] Start: 06-02-2024 Non-patient / Non-visit Viktor Sotelo MD Work Phone: [facility] Work Phone: Start: 05-30-2024 End: 05-30-2024 Patient encounter procedure Viktor Sotelo MD Work Phone: [facility]-Ultrasound [place] Work Phone: Start: 05-30-2024 End: 05-30-2024 ambulatory Viktor Sotelo Facility:[facility] Start: 05-30-2024 End: 05-30-2024 ambulatory ESTELA Sulema CHUNG Facility: [place] Start: 05-30-2024 End: 05-30-2024 Patient encounter procedure ESTELA CHUNG [facility] [place] Start: 05-25-2024 End: 05-25-2024 ambulatory [facility] Start: 05-25-2024 End: 05-25-2024 Subsequent hospital visit by physician Alondra Device [facility] Comment on above: Pacemaker; Sick sinus syndrome (Multi) Start: 05-03-2024 End: 05-03-2024 ambulatory ESTELA CHUNG Facility: [place] Start: 05-03-2024 End: 05-03-2024 Patient encounter procedure [facility]G [facility] Start: 02-10-2024 End: 02-10-2024 ambulatory [facility] Start: 02-10-2024 End: 02-10-2024 Subsequent hospital visit by physician Alondra Device [facility] Comment on above: Pacemaker; Sick sinus syndrome (Multi) Start: 11-12-2023 End: 11-12-2023 ambulatory MD Viktor Sotelo Work Phone: [facility] Work Phone: Start: 11-12-2023 End: 11-12-2023 Patient encounter procedure MD Viktor Sotelo Work Phone: [facility] Work Phone: Start: 11-09-2023 Registered Recurring MD Viktor Sotelo Work Phone: [facility]- Credible Start: 11-04-2023 End: 11-04-2023 ambulatory RITA Helms [facility] Start: 11-04-2023 End: 11-04-2023 Subsequent hospital visit by physician Alondra Device [facility] Comment on above: Pacemaker; Sick sinus syndrome (Multi) Start: 10-29-2023 End: 10-31-2023 Evaluation and management of inpatient VIKTOR SOTELO [facility] Start: 10-29-2023 Non-patient / Non-visit MD Viktor Sotelo Work Phone: [facility] Work Phone: Start: 10-28-2023 Non-patient / Non-visit MD Viktor Sotelo Work Phone: [facility] Work Phone: Start: 10-27-2023 Non-patient / Non-visit MD Viktor Sotelo Work Phone: [facility] Work Phone: Start: 10-26-2023 Non-patient / Non-visit MD Viktor Sotelo Work Phone: [facility] Work Phone: Start: 07-29-2023 End: 07-29-2023 Subsequent hospital visit by physician Alondra Device [facility] Comment on above: Pacemaker; Sick sinus syndrome (CMS/HCC) Start: 07-29-2023 End: 07-29-2023 ambulatory RITA Helms [facility] Start: 04-28-2023 End: 04-28-2023 Patient encounter procedure ESTELA CHUNG [facility] [place] Start: 04-24-2023 End: 04-24-2023 Subsequent hospital visit by physician Alondra Device [facility] Comment on above: Pacemaker; Sick sinus syndrome (CMS/HCC) Start: 01-21-[address] Viktor Sotelo Facility:[id number] Start: 01-21-2023 End: 01-21-2023 ambulatory MD Viktor Sotelo Work Phone: [facility] Work Phone: Start: 01-21-2023 End: 01-21-2023 Patient encounter procedure MD Viktor Sotelo Work Phone: [facility]-MRI [place] Work Phone: Start: 01-20-2023 Current tobacco non-user cad cap copd pv dm Viktor Sotelo Work Phone: [facility] [address] DO Work Phone: Start: 01-20-[address] Viktor Sotelo Facility:[id number] Start: 12-19-[address] Viktor Sotelo Facility:[id number] Start: 12-19-2022 End: 12-19-2022 ambulatory MD Viktor Sotelo Work Phone: [facility] Work Phone: Start: 12-19-2022 End: 12-19-2022 Patient encounter procedure MD Viktor Sotelo Work Phone: [facility]-Pacemaker Check Start: 12-11-2022 End: 12-15-2022 Evaluation and management of inpatient MD Viktor Sotelo Work Phone: [facility]-[address] [place] [address] Work Phone: Start: 12-09-2022 End: 12-09-2022 Patient encounter procedure Michael VIVEROS [facility] Start: 11-03-2022 Registered Recurring MD Viktor Sotelo Work Phone: [facility] Cred[facility] Start: 10-28-2022 End: 11-01-2022 Evaluation and management of inpatient MD Viktor Sotelo Work Phone: [facility]-[address] [place] [address] Work Phone: Start: 10-28-2022 Registered Recurring MD Viktor Sotelo Work Phone: [facility] Start: 10-21-[address] Viktor Sotelo Facility:[id number] Start: 10-18-2022 End: 10-18-2022 Emergency department patient visit MD Viktor Sotelo Work Phone: [facility]-Emergency Room Work Phone: Start: 10-16-2022 End: 10-16-2022 ambulatory KRISTA HARVEY . Facility: Start: 09-28-2022 End: 09-28-2022 Emergency department patient visit MD Viktor Sotelo Work Phone: [facility]-Emergency Room Work Phone: Start: 09-03-2022 End: 09-07-2022 Evaluation and management of inpatient MD Viktor Sotelo Work Phone: [facility]-[address] [place] [address] Work Phone: Start: 09-03-2022 End: 09-03-2022 Patient encounter procedure ESTELA CHUNG [facility] Start: 08-11-2022 End: 08-13-2022 Evaluation and management of inpatient MD Viktor Sotelo Work Phone: [facility]-[address] Work Phone: Start: 08-05-2022 End: 08-05-2022 ambulatory MD Viktor Sotelo Work Phone: [facility] Work Phone: Start: 08-05-2022 End: 08-05-2022 Patient encounter procedure MD Viktor Sotelo Work Phone: [facility]-3 East Labor - O/P Start: 08-01-2022 End: 08-02-2022 Evaluation and management of inpatient MD Viktor Sotelo Work Phone: [facility]-3 East Labor and Delivery Work Phone: Start: 07-25-2022 End: 07-25-2022 ambulatory MD Viktor Sotelo Work Phone: [facility] Work Phone: Start: 07-25-2022 End: 07-25-2022 Departed Referred MD Viktor Sotelo Work Phone: [facility]-Lab [place] Work Phone: Start: 07-22-2022 Current tobacco non-user cad cap copd pv dm Viktor Sotelo Work Phone: [facility] [address] DO Work Phone: Start: 07-22-[address] Viktor Sotelo Facility:[id number] Start: 07-15-2022 End: 07-17-2022 Evaluation and management of inpatient MD Viktor Sotelo Work Phone: [facility] Work Phone: Start: 07-09-2022 End: 07-09-2022 ambulatory MD Viktor Sotelo Work Phone: [facility] Work Phone: Start: 07-09-2022 End: 07-09-2022 Discharged Recurring MD Viktor Sotelo Work Phone: [facility]-Infusion Therapy - O/P Work Phone: Start: 06-30-2022 End: 06-30-2022 ambulatory MD Viktor Sotelo Work Phone: [facility] Work Phone: Start: 06-30-2022 End: 06-30-2022 Patient encounter procedure MD Viktor Sotelo Work Phone: [facility]-Lab [place] Work Phone: Start: 06-26-2022 End: 06-26-2022 ambulatory MD Viktor Sotelo Work Phone: [facility] Work Phone: Start: 06-26-2022 End: 06-26-2022 Patient encounter procedure MD Viktor Sotelo Work Phone: [facility]-3 East Labor - O/P Start: 06-25-2022 End: 06-25-2022 Emergency department patient visit MD Viktor Sotelo Work Phone: [facility]-Emergency Room Work Phone: Start: 06-25-2022 Registered Recurring MD Viktor Sotelo Work Phone: [facility]-Infusion Therapy - O/P Work Phone: Start: 04-28-2022 End: 04-29-[address] VIKTOR SOTELO Facility:[id number] Start: 04-17-[address] Viktor Sotelo Facility:[id number] Start: 02-14-2022 Chart Update Viktor Sotelo Work Phone: [facility] [address] DO Work Phone: Start: 02-13-2022 Patient encounter procedure Viktor Sotelo Work Phone: [facility] [address] [place] Work Phone: Start: 02-13-[address] Rita Olivia Facility:[id number] Start: 01-20-2022 End: 01-20-2022 Emergency department patient visit MD Viktor Sotelo Work Phone: [facility]-Emergency Room Start: 01-14-2022 Current tobacco non-user cad cap copd pv josh Sotelo Work Phone: [facility] [address] DO Work Phone: Start: 12-18-2021 ambulatory Clemente simmons MD Work Phone: General Surgery Comment on above: [place] Start: 12-16-2021 End: 12-16-2021 Patient encounter procedure MD Viktor Sotelo Work Phone: [facility]-Lab [facility] [place] Start: 12-08-2021 End: 12-11-2021 Evaluation and management of inpatient MD Viktor Sotelo Work Phone: [facility] Start: 09-18-2021 Telephone encounter Clemente Bernstein MD Work Phone: Gastroenterology Comment on above: Patient Update Start: 07-19-2021 Result Review Viktor Sotelo Work Phone: [facility] Work Phone: Start: 04-30-2021 Current tobacco non-user cad cap copd pv dm Viktor Sotelo Work Phone: [facility] Work Phone: Start: 03-20-2021 Patient encounter procedure Viktor Sotelo Work Phone: [facility] [address] Work Phone: Start: 01-24-2020 End: 01-25-2020 Patient encounter procedure [facility] Start: 01-24-2020 End: 01-24-2020 Subsequent hospital visit by physician [facility] Schedule [facility] Comment on above: Arrived Procedures Date Procedure Procedure Detail Performing Clinician Start: 07-04-2024 Computed tomography of abdomen and pelvis with contrast Viktor Sotelo MD Work Phone: Start: 05-30-2024 Ultrasonography of bilateral kidneys Viktor Sotelo MD Work Phone: Start: 11-04-2023 CARDIAC DEVICE CHECK - REMOTE RITA NE Start: 07-29-2023 CARDIAC DEVICE CHECK - REMOTE RITA NE Start: 04-24-2023 Rem interrog pm/ldls pm/ids <90 d tech review Rita Olivia MD Work Phone: Start: 01-21-2023 MRI of abdomen with contrast MD Viktor noriega Work Phone: Start: 12-19-2022 Plain chest X-ray MD Viktor Sotelo Work Phone: Start: 12-11-2022 Urine culture MD Viktor Sotelo Work Phone: Start: 12-09-2022 Cystourethroscopy with dilation of urethral stricture ESTELA CHUNG Start: 10-28-2022 Urine culture MD Viktor Sotelo Work Phone: Start: 10-18-2022 CT of abdomen and pelvis without contrast MD Viktor Sotelo Work Phone: Start: 10-18-2022 Urine culture MD Viktor Sotelo Work Phone: Start: 09-28-2022 CT angiography of thorax MD Viktor Sotelo Work Phone: Start: 09-28-2022 Plain chest X-ray MD Viktor Sotelo Work Phone: Start: 09-28-2022 SARS-CoV-2, Influenza & RSV (PCR) MD Viktor Sotelo Work Phone: Start: 09-28-2022 Urine culture MD Viktor Sotelo Work Phone: Start: 09-03-2022 Urine culture MD Viktor Sotelo Work Phone: Start: 08-11-2022 Urine culture MD Viktor Sotelo Work Phone: Start: 08-01-2022 Urine culture MD Viktor Sotelo Work Phone: Start: 07-25-2022 Streptococcus agalactiae culture MD Viktor Sotelo Work Phone: Start: 07-15-2022 Urine culture MD Viktor Sotelo Work Phone: Start: 06-26-2022 Urine culture MD Viktor Sotelo Work Phone: Start: 06-25-2022 Urine culture MD Viktor Sotelo Work Phone: Start: 02-13-2022 Chloe Sotelo Work Phone: Start: 02-19-2021 Cystourethroscopy with dilation of urethral stricture ESTELA CHUNG Start: 01-24-2020 Sleep std airflow hrt rate&o2 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 Start: 07-10-2019 Adult depression screening assessment Clemente Eng MD Work Phone: Appendectomy Viktor Sotelo Work Phone: Appendectomy ESTELA CHUNG Cholecystectomy Viktor sanches Work Phone: Cholecystectomy ESTELA DELVALLE ROSY H/O: surgery History of gastr ic surgery MD Viktor Sotelo Work Phone: Insertion of pacemak er pulse generator Viktor Sotelo Work Phone: Maintenance procedur e for cardiac pacemaker system ESTELA SHELDON Operation on gallbladder Marie Sotelo Work Phone: Operation on stomach Viktor Sotelo Work Phone: Repair of anterior c ruciate ligament of knee joint Viktor Sotelo Work Phone: SARS Antigen (LFIA) MD Maria Esther Sotelo Work Phone: Urine culture MD Viktor garrison Work Phone: Urine culture MD Viktor garrison Work Phone: Plan of Treatment Date Care Activity Detail Author Start: 2032 Zoster Vaccines (1 of 2) Zoste r Vaccines (1 of 2) [facility] Start: 02-21-2024 COVID-19 Vaccine ( season) COVID-19 Vaccine ( season) [facility] Start: 02-21-2024 Influenza vaccination U [facility] Start: 07-07-2023 FUV, Provider: Rita Olivia, Status: Pen, Time: 8:40 AM FUV, Provider: Rita Olivia, Status: Pen, Time: 8:40 AM -[facility] [address] DO Work Phone: Start: 07-07-2023 End: 07-07-2023 Patient encounter procedure 07/07/2023 8:40 AM EST Office Visit [facility] [address] [facility] [address] [place] [address] Rita Olivia MD [address] [facility] [address] [place], [place] [id number] [facility] Start: 02-20-2023 COVID-19 Vaccine ( season) COVID-19 Vaccine ( season) [facility] Start: 02-20-2023 Influenza vaccination Influenza Vacc ine (#1) [facility] Start: 01-20-2023 FUV, Provider: Rita Olivia, Status: Pen, Time: 8:40 AM FUV, Provider: Rita Olivia, Status: Pen, Time: 8:40 AM [facility] [address] DO Work Phone: Start: 01-20-2023 Patient encounter procedure FUVPACEMKR, Provider: [facility],EMCPACEMSAUMYA, Status: Pen, Time: 8:00 AM [facility] [address] DO Work Phone: Start: 12-15-2022 [facility] Start: 12-11-2022 Referral to [facility] Start: 12-11-2022 Hospital admission [facility] Start: 12-11-2022 Bacteria identified in Urine by Culture Urine Culture [facility] Start: 11-01-2022 [facility] Start: 10-31-2022 Administration of prophylactic treatment [facility] Start: 2022 Screening for malign ant neoplasm of breast Mammogram [facility] Start: 10-29-2022 Referral to clinical wood room hand [facility] Start: 10-28-2022 Referral to Biological Science Aide [facility] Start: 10-28-2022 Hospital admission [facility] Start: 10-28-2022 Bacteria identified in Urine by Culture [facility] Start: 09-28-2022 CT angiography of thorax CT an ignacia chest PE protocol [facility] Start: 09-28-2022 CT Chest [facility] Start: 09-28-2022 Plain chest X-ray XR chest 2V* [facility] Start: 09-28-2022 XR Chest 2 Views [facility] Start: 09-28-2022 Bacteria identified in Urine by Culture [facility] Start: 09-07-2022 [facility] Start: 09-03-2022 Hospital admission [facility] Start: 08-13-2022 [facility] Start: 08-12-2022 Referral to psychiatrist [facility] Start: 08-12-2022 Hospital admission [facility] Start: 08-11-2022 Extraction of Produc ts of Conception, Low Forceps, Via Natural or Artificial Opening Extraction of Products of Conception, Low Forceps, Via Natural or Artificial Opening [facility] Start: 08-05-2022 [facility] Start: 08-02-2022 [facility] Start: 08-02-2022 Referral to neurologist [facility] Start: 08-02-2022 Hospital admission [facility] Start: 08-02-2022 [facility] Start: 08-01-2022 Hospital admission [facility] Start: 08-01-2022 Bacteria identified in Urine by Culture [facility] Start: 07-25-2022 Group B Streptococcu s Culture Group B Streptococcus Culture [facility] Start: 07-22-2022 FUV, Provider: Rita Olivia, Status: Pen, Time: 9:40 AM FUV, Provider: Rita Olivia, Status: Pen, Time: 9:40 AM [place] [address] DO Work Phone: Start: 07-17-2022 [facility] Start: 07-15-2022 Bacteria identified in Urine by Culture [facility] Start: 07-15-2022 Referral to Biological Science Aide [facility] Start: 07-15-2022 Sleep disorder assessment [facility] Start: 07-15-2022 Hospital admission [facility] Start: 06-26-2022 [facility] Start: 06-26-2022 Hospital admission [facility] Start: 06-26-2022 [facility] Start: 06-26-2022 Bacteria identified in Urine by Culture [facility] Start: 06-25-2022 Bacteria identified in Urine by Culture [facility] Start: 02-20-2022 Influenza vaccination INFLUENZA (#1) [facility] Start: 02-13-2022 ECHO, Provider: EDSON DUNN [facility] 01,[id number], Status: Pen, Time: 7:45 AM ECHO, Provider: ЕКАТЕРИНА [facility] 01,[id number], Status: Pen, Time: 7:45 AM -[facility] [address] DO Work Phone: Start: 12-11-2021 [facility] Work Phone: Start: 12-10-2021 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 Work Phone: Start: 07-09-2021 Patient encounter procedure FUVPACEMKR, Provider: [facility],EMCPACEMKR, Status: Pen, Time: 10:20 AM XF-Tywmcobjezii-QQOV C Work Phone: Start: 06-19-2021 EPVNEURO, Provider: Dennis Almendarez, Status: Pen, Time: 9:00 AM EPVNEURO, Provider: Dennis Almendarez, Status: Pen, Time: 9:00 AM FF-Iybjotaghxcnw-Oqg [address] Work Phone: Start: 02-20-2021 Influenza vaccination INFLUENZA (#1) [facility] Start: 07-10-2020 Adult depression screening assessment DEPRESSION SCREENING [facility] Start: 02-21-2020 Influenza vaccination Flu vaccine (# 1) [facility] [place] Start: 2018 HPV TESTING HPV TESTING [facility] Start: 2018 PAP TESTING PAP TESTING [facility] Start: 05-17-2009 MMR Vaccines (1 of 1 - Standard series) MMR Vaccines (1 of 1 - Standard series) [facility] Start: 05-17-2009 Varicella vaccination U [facility] Start: 2004 DTaP/Tdap/Td Vaccine s (1 - Tdap) DTaP/Tdap/Td Vaccines (1 - Tdap) [facility] Start: 10-31-2003 Screening for malign ant neoplasm of cervix [facility] Start: 2001 DTaP/Tdap/Td vaccine (1 - Tdap) DTaP/Tdap/Td vaccine (1 - Tdap) [place] Start: 2001 Hepatitis B Vaccines (1 of 3 - 19+ 3-dose series) Hepatitis B Vaccines (1 of 3 - 19+ 3-dose series) [facility] Start: 2001 Urine microalbumin profile DTAP,TDAP,TD (1 - Tdap) [facility] Start: 2000 Diabetes mellitus screening Diabetes Screening [facility] Start: 2000 HEPATITIS C SCREENING HEPATITIS C [facility] Start: 2000 Hepatitis C screening Hepatitis C [facility] Start: 2000 HIV SCREENING HIV SCREENING [facility] Start: 1997 HIV screening HIV screen [place], [place] Start: 10-31-1987 COVID-19 VACCINE (1) COVID-19 VACCIN E (1) [facility] Start: 10-31-1983 Varicella vaccine (1 of 2 - 2-dose childhood series) Varicella vaccine (1 of 2 - 2-dose childhood series) [place] Start: 05-02-1983 COVID-19 VACCINE (#1) COVID-19 VACCI NE (#1) [facility] Start: 1982 Hepatitis B Vaccines (1 of 3 - 3-dose series) Hepatitis B Vaccines (1 of 3 - 3-dose series) [facility] Start: 1982 HIV screening HIV Screening [facility] Start: 1982 Lipid panel Lipid Panel [facility] Start: 1982 Medicare Annual Well ness Visit Medicare Annual Wellness Visit (AWV) [facility] End: 07-29-2023 Cardiac Device Check - Remote [facility] Service Area Work Phone: Comment on above: Once for 1 Occurrenc es starting 07/29/2023 until 07/29/2023 End: 11-04-2023 Cardiac Device Check - Remote [facility] Service Area Work Phone: Comment on above: Once for 1 Occurrenc es starting 11/04/2023 until 11/04/2023 End: 05-25-2024 Cardiac Device Check - Remote [facility] Service Area Work Phone: Comment on above: Once for 1 Occurrenc es starting 05/25/2024 until 05/25/2024 End: 02-10-2024 Cardiac Device Check - Remote [facility] Service Area Work Phone: Comment on above: Once for 1 Occurrenc es starting 02/10/2024 until 02/10/2024 End: 01-24-2020 Home Sleep Study Home Sleep Study Sleep Center Routine One Time for 1 Occurrences starting 01/24/2020 until 01/24/2020 [facility] [place] Comment on above: One Time for 1 Occur rences starting 01/24/2020 until 01/24/2020 Patient Education [facility] Work Phone: Patient referral [facility] Work Phone: Reagin Ab [Presence] in Serum by RPR [facility] Streptococcus agalac tiae [Presence] in Unspecified specimen by Organism specific culture [facility] Immunizations Immunization Date Immunization Notes Care Provider [facility] 05-27-2020 influenza virus vaccine, unspecified formulation ESTELA CHUNG [facility] 05-27-2020 influenza, injectabl e, quadrivalent, preservative free Clemente nEg MD Work Phone: [facility] 05-22-2020 influenza virus vaccine, unspecified formulation ESTELA CHUNG [facility] 08-29-2019 influenza virus vaccine, unspecified formulation Viktor Sotelo Work Phone: [facility] [address] DO Work Phone: 04-10-2019 influenza virus vaccine, unspecified formulation ESTELA CHUNG [facility] [place] 04-10-2019 influenza, injectabl e, quadrivalent, preservative free Clemente Eng MD Work Phone: [facility] 04-19-2009 novel [id number], preservative-free, injectable Viktor Leone Sanchez Work Phone: [facility] [address] DO Work Phone: Payers Date Payer Category Payer Private Health Insurance 2024 Unknown 2022 Medicaid [id number] 2022 Self-pay [id number] 2021 Medicare AETNA MEDICARE A ETNA MEDICARE ASSURE [id number] 2021-Present [address] [place] [address] [id number] 2021 Medicare (Managed Care) A[employer]NA ME DICARE ASSURE [id number] 2021 Private Health Insurance [id number] 2020 Medicaid MEDICAID [facility] MEDICAID [id number] 2020-Present [phone] [address] [place] [address] Medicaid [id number] 2020 Medicare MEDICARE MEDICAR E A AND B [id number] 2020-Present [phone] [address] [address] [place] [address] Medicare [id number] 2019 Unknown [id number] 1982 Unknown [id number] 74 1982 Unknown [id number] 93 1982 Unknown [id number] 93 1982 Unknown [id number] 1982 Unknown [id number] 1982 Unknown [id number] 1982 Unknown [id number] 1982 Unknown [id number] 1982 Unknown [id number] 56 1982 Unknown [id number] [id number] 58 1980 Unknown [id number] 2.16.840.1.264533.3.579.2.3 1980 Unknown [id number] 2.16.840.1.755119.3.579.2.3 1982 Unknown [id number] 2.16.840.1.566190.3.579.2.1 1980 Unknown [id number] 2.16.840.1.810535.3.579.2.1 [facility] 1980 Unknown [id number] 2.16.840.1.809109.3.579.2.1 [facility] 1980 Unknown [id number] 2.16840.1.934869.3.579.2.1 [facility] 1980 Unknown [id number] 2.16840.1.532226.3.579.2.1 [facility] 1980 Unknown [id number] 2.840.1.057705.3.579.2.7 1982 Unknown [id number] 2.840.1.221528.3.579.2.7 1982 Unknown [id number] 2.16840.1.255185.3.579.2.7 1982 Unknown [id number] 2.16840.1.808880.3.579.2.7 1982 Unknown [id number] 2.16840.1.217775.3.579.2.7 1980 Unknown [id number] 2.16840.1.692986.3.579.2.1 1957 Medicaid [id number] 1957 Medicare [id number] Medicare [id number] Unknown [id number] 2.16.840.1.772281.3.579.2.5 31 Unknown [id number] 2.16.840.1.497206.3.579.2.5 31 Unknown [id number] 2.16.840.1.442532.3.579.2.5 31 Social History Date Type Detail Facility Tobacco smoking stat [facility] Unknown if ever smoked [facility] Start: 1980 Sex Assigned At Not on file [place], [place] Start: 06-08-2023 Non-smoker Non-smoker 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 (finding) [facility] Start: 10-24-2019 History SDOH Financial 5 [facility] Start: 10-24-2019 History SDOH Food Worry 1 [facility] Start: 10-24-2019 History SDOH Transpo rt Med 2 [facility] Start: 1980 Sex Assigned At Female C [facility] Tobacco smoking status Never [facility] Start: 06-08-2023 Sex Assigned At Female F [facility] Work Phone: Start: 06-08-2023 Alcohol intake Ex-drinker (finding) [facility] Work Phone: Start: 07-05-2024 Sex Female (finding) [facility] Medical Equipment Procedure Code Equipment Code Equipment Origin al Text Equipment Identifier Dates [facility] [id number] Start: 04-11-2020 [facility] 8tc/46 [id number] Start: 04-11-2020 [facility] Assurity Mri [id number] Start: 04-11-2020 Tray Port-A-Cath Ii 7.8fr 2.6mm 1.6mm Polysulfone Titanium Polyurethane 76 - [id number] Start: 07-22-2018 Corflo Feeding T ube 10f 60cm [id number] Start: 08-17-2018 Kit Ponsky 20fr Silicone Peg Pull Deluxe Kit Non Safety Sterile - [id number] Start: 01-31-2019 Tube Claudio Secur-L ok 20fr Standard J Silicone Jejunostomy Trimmable Distal - [id number] Start: 04-20-2019 Tube Claudio Secur-L ok 18fr Standard Silicone Natural Rubber Jejunostomy - [id number] Start: 07-11-2019 Kit Endovive 20f r Xylocaine Silicone Peg Pull Method Ampule Trocar Cannula - [id number] Start: 10-25-2019 Goals Date Patient Goal Desired Activity /State Functional Status Date Assessment Result Facility 07-05-2024 Functional Status N/A [facility] 04-28-2023 Functional Status N/A [facility] 12-15-2022 Functional status Patient at Baseline [facility] Work Phone: 12-09-2022 Functional Status N/A [facility] 11-01-2022 Functional status Patient at Baseline [facility] Work Phone: 09-07-2022 Functional status Patient at Baseline [facility] Work Phone: 09-03-2022 Functional Status N/A [facility] 08-13-2022 Functional status Patient at Baseline [facility] Work Phone: 07-17-2022 Functional status Patient at Baseline [facility] Work Phone: 12-11-2021 Functional status Patient at Baseline [facility] Work Phone: Mental Status Date Assessment Result Facility 12-15-2022 Cognitive function Cognitive Sta tus Patient at Baseline [facility] Work Phone: 11-01-2022 Cognitive function Cognitive Sta tus Patient at Baseline [facility] Work Phone: 09-07-2022 Cognitive function Cognitive Sta tus Patient at Baseline [facility] Work Phone: 08-13-2022 Cognitive function Cognitive Sta tus Patient at Baseline [facility] Work Phone: 07-17-2022 Cognitive function Cognitive Sta tus Patient at Baseline [facility] Work Phone: 12-11-2021 Cognitive function Cognitive Sta tus Patient at Baseline [facility] Work Phone: Clinical Notes 06-07-2019 to 07-05-2024 Note Date & Type Note Facility 07-05-2024 Hospital Discharg e instructions Patient Education 07/05/2024 13:36:38 EU - Cystoscopy with Urethral Dilation Discharge Instructions (CUSTOM) Cystoscopy with Urethral Dilation Voiding after the procedure: there may be some pain, urethral bleeding, burning, urgency, frequency and blood tinged urine following the procedure. These symptoms usually resolve within 2-5 days. Drink the amount of fluid it takes to keep the urine pink to yellow or clear in color. Drinking enough water and fluids will help to ease any discomfort after your procedure. If you are having problems that seem out of the ordinary, please call. If unable to contact your physician and you feel it is an emergency, go to the nearest emergency room or call 911 Diet you may resume your normal diet. Activity you may resume your normal activities Call if you have a fever over 100 degrees Follow Up Care 06/21/2024 10:16:19 With:Michael VIVEROS Address: [address] [place] [phone] (1) When:01/02/2025 13:36:19 Comments:With Martha Crawford [facility] 07-05-2024 Evaluation + Plan note Extrac nneka from: Title:EU Local Female Cystos copy w/ or w/o UD - FT Author:Michael VIVEROS MD Date:07/05/24 Patient: MARICARMEN ANDERSON Age: 43 years Sex: Female : 1980 Associated Diagnoses: None Author: Michael VIVEROS MD Procedure Operative Information Details: Date/ Time: 07/05/2024 13:38:00. Pre-Op Dx: Incomplete Bladder Emptying - R39.14. Post-Op Dx: Same. Anesthesia Type: Local. Procedure: Local Cystoscopy with Urethral Dilation. Complications: None. Risks/Benefits/Informed Consent: Surgical risks, benefits, details of the procedure have been explained to the patient, Full informed consent has been obtained. Intraoperative Information Prepped: Patient is brought back to the endoscopy suite, Patient is placed in modified dorso/lithotomy position, Patient prepped in the usual fashion with Betadine solution, 2% Xylocaine Jelly is placed per Urethra, After waiting several minutes the Cystoscope is introduced. The Urethra is: Normal. The Bladder is: Normal, No SIOMARA, A. V. Or prolapse.. The ureteral orifices: Show efflux of clear urine. Devices Implanted: None. Removal: Cystoscope is removed, The patient tolerated it well. Postoperative Information Discharge: Patient is discharged home with antibiotic coverage, Follow up arranged. Addendum by Alex VIVEROS MD on July 05, 2024 13:40 EST Urethra was dilated from 22-30 [place] sounds. Future Appointments Appointment Date:01/02/2025 08:20:00 AM Scheduled Provider:ESTELA CHUNG PA-C Location:[facility] Appointment Type:URO Office Visit [facility] 01-14-2025 NotePatient Education Custom Cystoscopy with Urethral Dilation ??? Voiding after the procedure: there may be some pain, urethral bleeding, burning, urgency, frequency and blood tinged urine following the procedure. These symptoms usually resolve within 2-5 days.Drink the amount of fluid it takes to keep the urine pink to yellow or clear in color. Drinking enough water and fluids will help to ease any discomfort after your procedure. ??? If you are having problems that seem out of the ordinary, please call. ??? If unable to contact your physician and you feel it is an emergency, go to the nearest emergency room or call 911 ??? Diet ??? you may resume your normal diet. ??? Activity ??? you may resume your normal activities ??? Call if you have a fever over [facility] Radiology Diagnostic study [facility] [place] [address] [place], [place] [id number] CT Scan Report Signed Patient: Maricarmen Anderson MR#: [id number] : 1980 Acct:[id number] Age/Sex: 43 / F ADM Date: 5 Loc: CT Room: Type: [facility] Attending Dr: Michael Viveros MD Copies to: Michael Viveros MD~ Ordering Provider: Michael Viveros MD Date of Service: 07/04/24 CT/CT abdomen pelvis w con: N28.89 CT ABDOMEN AND PELVIS WITH INTRAVENOUS CONTRAST: CLINICAL HISTORY: Kidney lesion. COMPARISON: Renal ultrasound 05/30/2024. MRI abdomen 01-21-23 TECHNIQUE: Spiral images were obtained through the abdomen and pelvis followingthe administration of intravenous contrast. This CT exam was performed using one or more following dose reduction techniques: Automated exposure control, adjustment of the mA and/or kV according to patient size, or use of iterative reconstruction technique. FINDINGS: Lung Bases: [No acute findings.] Organs:Gallbladder has been removed. Hepatic steatosis. Portal vein pancreas spleen and adrenal glands appear unremarkable. No enhancing renal mass or hydronephrosis. The previously identified cysticlesion involving the left kidney is occult on today's study. Aorta appears normal in caliber.[ GI: Small hiatal hernia with postsurgical changes involving the stomach. Small bowel appears nondilated. No acute colonic abnormality.[ Pelvis:[Urinary bladder and uterus appear grossly unremarkable. No adnexal mass.] Peritoneum/Retroperitoneum:No free air or free fluid or lymphadenopathy.[ Abd wall/Bones:Abdominal wall demonstrates no acute findings. Osseous structures demonstrate degenerative change.[ CT/CT abdomen pelvis w con IMPRESSION: No acute findings. The previously identified septated cystic lesion involving the left kidney appears to have resolved. Impression dictated by: Mitchel Oro Jr., D.OBeatris07/04/2024 2:58 PM Dictation Location: [facility] Transcribed By: RAFA 07/04/24 145 Dictated By: Mitchel Oro Jr, DO 07/04/24 1455 Signed By: 07/04/24 1458 [facility]12-20-2024 Evaluation note* Diagnosis Onset Date Resolution Status Admit Date Cervical radicular pain acute D ec2023 9:26am Gastroparesis acute June 102023 9:26am [facility] Work Phone: 1(993) 789-119412-12-2024 Hospital Discharge instructions Patient Education 06/02/2024 15:53:20 Acute Urinary Retention, Female Acute Urinary Retention, Female Acute urinary retention is a condition in which a person is unable to pass urine or can only pass alittle urine. This condition can happen suddenly and last for a short time. If left untreated, it can become long-term (chronic) and result in kidney damage or other serious complications. What are the causes? This condition may be caused by: Obstruction or narrowing of the tube that drains the bladder (urethra). This may be caused by surgery, problems with nearby organs, or injury to the bladder or urethra. Problems with the nerves in the bladder. Pelvic organ prolapse. Tumors in the area of the pelvis, bladder, or urethra. Vaginal childbirth. Bladder or urinary tract infection. Constipation. Certain medicines. What increases the risk? This condition is more likely to develop in women over age 50. Other chronic health conditions can increase the risk of acute urinary retention. These include: Diseases such as multiple sclerosis. Spinal cord injuries. Diabetes. Degenerative cognitive conditions, such as delirium or dementia. Psychological conditions. A woman may hold her urine due to trauma or because she does not want to use the bathroom. History of preexisting urinary retention. History of prior pelvic surgery, incontinence surgery, or radical pelvic surgery. What are the signs or symptoms? Symptoms of this condition include: Trouble urinating. Pain in the lower abdomen. How is this diagnosed? This condition is diagnosed based on a physical exam and your medical history. You may also have other tests, including: An ultrasound of the bladder or kidneys or both. Blood tests. A urine analysis. Additional tests may be needed, such as a CT scan, MRI, and kidney or bladder function tests. How is this treated? Treatment for this condition may include: Medicines. Placing a thin, sterile tube (catheter) into the bladder to drain urine out of the body. This is called an indwelling urinary catheter. After it is inserted, the catheter is held in place with a small balloon that is filled with sterile water. Urine drains from the catheter into a collection bag outside of the body. Behavioral therapy. Treatment for other conditions. If needed, you may be treated in the hospital for kidney function problems or to manage other complications. Follow these instructions at home: Medicines Take rkke-gio-eyvedbs and prescription medicines only as told by your health care provider. Avoid certain medicines, such as decongestants, antihistamines, and some prescription medicines. Do not take any medicine unless your health care provider approves. If you were prescribed an antibiotic medicine, take it as told by your health care provider. Do notstop using the antibiotic even if you start to feel better. General instructions Do not use any products that contain nicotine or tobacco. These products include cigarettes, chewing tobacco, and vaping devices, such as e-cigarettes. If you need help quitting, ask your health careprovider. Drink enough fluid to keep your urine pale yellow. If you have an indwelling urinary catheter, follow the instructions from your health care provider. Monitor any changes in your symptoms. Tell your health care provider about any changes. If instructed, monitor your blood pressure at home. Report changes as told by your health care provider. Keep all follow-up visits. This is important. Contact a health care provider if: You have uncomfortable bladder contractions that you cannot control (spasms). You leak urine with the spasms. Get help right away if: You have chills or a fever. You have blood in your urine. You have a catheter and the following happens: ?Your catheter stops draining urine. ?Your catheter falls out. Summary Acute urinary retention is a condition in which a person is unable to pass urine or can only pass alittle urine. If left untreated, this can result in kidney damage or other serious complications. One cause of this condition may be obstruction or narrowing of the tube that drains the bladder (urethra). This may be caused by surgery, problems with nearby organs, or injury to the bladder or urethra. Treatment may include medicines and placement of an indwelling urinary catheter. Monitor any changes in your symptoms. Tell your health care provider about any changes. This information is not intended to replace advice given to you by your health care provider. Make sure you discuss any questions you have with your health care provider. Document Revised: 02/27/2021 Document Reviewed: 02/27/2021 [employer] Patient Education 2023 Nveloped. Follow Up Care 05/27/2024 13:08:43 With:ESTELA CHUNG PA-C, URL Address: [facility] [address] [place] [address] When: Unknown [facility] [place] 12-12-2024 NotePatient Education Obstetrics and Gynecology Acute Urinary Retention, Female Acute urinary retention is a condition in which a person is unable to pass urine or can only pass alittle urine. This condition can happen suddenly and last for a short time. If left untreated, it can become long-term (chronic) and result in kidney damage or other serious complications. What are the causes? This condition may be caused by: ??? Obstruction or narrowing of the tube that drains the bladder (urethra). This may be caused by surgery, problems with nearby organs, or injury to the bladder or urethra. ??? Problems with the nerves in the bladder. ??? Pelvic organ prolapse. ??? Tumors in the area of the pelvis, bladder, or urethra. ??? Vaginal childbirth. ??? Bladder or urinary tract infection. ??? Constipation. ??? Certain medicines. What increases the risk? This condition is more likely to develop in women over age 50. Other chronic health conditions can increase the risk of acute urinary retention. These include: ??? Diseases such as multiple sclerosis. ??? Spinal cord injuries. ??? Diabetes. ??? Degenerative cognitive conditions, such as delirium or dementia. ??? Psychological conditions. A woman may hold her urine due to trauma or because she does not wantto use the bathroom. ??? History of preexisting urinary retention. ??? History of prior pelvic surgery, incontinence surgery, or radical pelvic surgery. What are the signs or symptoms? Symptoms of this condition include: ??? Trouble urinating. ??? Pain in the lower abdomen. How is this diagnosed? This condition is diagnosed based on a physical exam and your medical history. You may also have other tests, including: ??? An ultrasound of the bladder or kidneys or both. ??? Blood tests. ??? A urine analysis. ??? Additional tests may be needed, such as a CT scan, MRI, and kidney or bladder function tests. How is this treated? Treatment for this condition may include: ??? Medicines. ??? Placing a thin, sterile tube (catheter) into the bladder to drain urine out of the body. This is called an indwelling urinary catheter. After it is inserted, the catheter is held in place with a small balloon that is filled with sterile water. Urine drains from the catheter into a collection bag outside of the body. ??? Behavioral therapy. ??? Treatment for other conditions. If needed, you may be treated in the hospital for kidney function problems or to manage other complications. Follow these instructions at home: Medicines ??? Take thsb-sry-foxmszh and prescription medicines only as told by your health care provider. Avoid certain medicines, such as decongestants, antihistamines, and some prescription medicines. Do nottake any medicine unless your health care provider approves. ??? If you were prescribed an antibiotic medicine, take it as told by your health care provider. Donot stop using the antibiotic even if you start to feel better. General instructions ??? Do not use any products that contain nicotine or tobacco. These products include cigarettes, chewing tobacco, and vaping devices, such as e-cigarettes. If you need help quitting, ask your health care provider. ??? Drink enough fluid to keep your urine pale yellow. ??? If you have an indwelling urinary catheter, follow the instructions from your health care provider. ??? Monitor any changes in your symptoms. Tell your health care provider about any changes. ??? If instructed, monitor your blood pressure at home. Report changes as told by your health care provider. ??? Keep all follow-up visits. This is important. Contact a health care provider if: ??? You have uncomfortable bladder contractions that you cannot control (spasms). ??? You leak urine with the spasms. Get help right away if: ??? You have chills or a fever. ??? You have blood in your urine. ??? You have a catheter and the following happens: ? Your catheter stops draining urine. ? Your catheter falls out. Summary ??? Acute urinary retention is a condition in which a person is unable to pass urine or can only pass a little urine. If left untreated, this can result in kidney damage or other serious complications. ??? One cause of this condition may be obstruction or narrowing of the tube that drains the bladder(urethra). This may be caused by surgery, problems with nearby organs, or injury to the bladder or urethra. ??? Treatment may include medicines and placement of an indwelling urinary catheter. ??? Monitor any changes in your symptoms. Tell your health care provider about any changes. This information is not intended to replace advice given to you by your health care provider. Make sure you discuss any questions you have with your health care provider. Document Revised: 02/27/2021 Document Reviewed: 02/27/2021 [employer] Patient Education ? 2023 Nveloped.[facility] 05-25-2024 Hospital Discharge instructions Follow Up Care 05/25/2024 15:26:22 With:SHELDON RILEY, ESTELA Leone, URL Address: [address] [place], [place] [address]darcie Baxter [place] [id number] When: Unknown [facility] [place] [id number] Hospital Discharge instructions Patient Education 04/28/2023 10:54:08 Urinary Tract Infection, Adult, Wtpw-pn-[id number] Urinary Tract Infection, Adult A urinary tract infection (UTI) is an infection of any part of the urinary tract. The urinary tractincludes: The kidneys. The ureters. The bladder. The urethra. These organs make, store, and get rid of pee (urine) in the body. What are the causes? This infection is caused by germs (bacteria) in your genital area. These germs grow and cause swelling (inflammation) of your urinary tract. What increases the risk? The following factors may make you more likely to develop this condition: Using a small, thin tube (catheter) to drain pee. Not being able to control when you pee or poop (incontinence). Being female. If you are female, these things can increase the risk: ?Using these methods to prevent : ?A medicine that kills sperm (spermicide). ?A device that blocks sperm (diaphragm). ?Having low levels of a female hormone (estrogen). ?Being . You are more likely to develop this condition if: You have genes that add to your risk. You are sexually active. You take antibiotic medicines. You have trouble peeing because of: ?A prostate that is bigger than normal, if you are male. ?A blockage in the part of your body that drains pee from the bladder. ?A kidney stone. ?A nerve condition that affects your bladder. ?Not getting enough to drink. ?Not peeing often enough. You have other conditions, such as: ?Diabetes. ?A weak disease-fighting system (immune system). ?Sickle cell disease. ?Gout. ?Injury of the spine. What are the signs or symptoms? Symptoms of this condition include: Needing to pee right away. Peeing small amounts often. Pain or burning when peeing. Blood in the pee. Pee that smells bad or not like normal. Trouble peeing. Pee that is cloudy. Fluid coming from the vagina, if you are female. Pain in the belly or lower back. Other symptoms include: Vomiting. Not feeling hungry. Feeling mixed up (confused). This may be the first symptom in older adults. Being tired and grouchy (irritable). A fever. Watery poop (diarrhea). How is this treated? Taking antibiotic medicine. Taking other medicines. Drinking enough water. In some cases, you may need to see a specialist. Follow these instructions at home: Medicines Take nyqs-mnq-qmbgxkh and prescription medicines only as told by your doctor. If you were prescribed an antibiotic medicine, take it as told by your doctor. Do not stop taking it even if you start to feel better. General instructions Make sure you: ?Pee until your bladder is empty. ?Do not hold pee for a long time. ?Empty your bladder after sex. ?Wipe from front to back after peeing or pooping if you are a female. Use each tissue one time whenyou wipe. Drink enough fluid to keep your pee pale yellow. Keep all follow-up visits. Contact a doctor if: You do not get better after 1 2 days. Your symptoms go away and then come back. Get help right away if: You have very bad back pain. You have very bad pain in your lower belly. You have a fever. You have chills. You feeling like you will vomit or you vomit. Summary A urinary tract infection (UTI) is an infection of any part of the urinary tract. This condition is caused by germs in your genital area. There are many risk factors for a UTI. Treatment includes antibiotic medicines. Drink enough fluid to keep your pee pale yellow. This information is not intended to replace advice given to you by your health care provider. Make sure you discuss any questions you have with your health care provider. Document Revised: 01/18/2021 Document Reviewed: 01/18/2021 [employer] Patient Education 2022 Nveloped. Follow Up Care 01/21/2023 14:42:53 With:ESTELA CHUNG PA-C, URL Address: [address] [place] [address]. [place] [address] [phone] When: Unknown Comments:1 yr w/ [facility] 06-26-2023 Discharge summary Author Nimesh regalado [facility] December 15, 2022 9:25am Note Date/Time December 15, 2022 9:24 am [facility] [address] [place] [id number] Discharge Summary Signed Patient: Maricarmen Anderson MR#: [id number] : 1980 Acct:[id number] Age/Sex: 42 / F Adm Date: 3 Loc: Room: [address] [place] [address]: Eduardo Swain MD Copies to: MD Eduardo Goldsmith MD Marcia E Braun, MD~ Providers Date of Discharge: 12/15/22 Discharging Provider: Toribio Cerda Primary Care Provider: Viktor Sotelo Consults: 12/11/22 22:01 Consult to Case Management Routine Discharge Diagnosis (1) Schizoaffective disorder: Final Diagnosis Final Discharge Diagnosis: Schizoaffective disorder Summary Hospital Course Hospital course: Ms. Anderson is a 42 year old female who presented due to concern for suicidal ideation and tremor. Upon assessment, patient reported that since her Invega Sustenna she has been having some suicidal thoughts.? She stated that the medication has also been causing her to have a tremor that is intermittent.? She reported that her mood feels depressed and just feels tired and not wanting to do anything.? She reported that she has some lack of motivation.? She reported that her outpatientprovider has been talking about possibly using a different medication and would see how she would respond after this Invega Sustenna.? She reported that she still has some baseline hallucinations at this time but overall they are manageable. Past psych history: Schizoaffective Past hospitalizations: Previous past psychiatric hospitalizations Past suicide attempts: Twice in 2021 via overdose Family psych history: Reports her father is bipolar Previous medications: Effexor, Trazodone, Remeron, Invega, and Abilify. Alcohol and drug use: Denies. Living: With family Employment: Disabled Relationships: States that she has good emotional support from friends and family. Review of symptoms: Constitutional: Denies chills and Denies fever(s) Eyes: Denies change in vision ENT: Denies abnormal hearing Cardiovascular: Denies chest pain Respiratory: Denies chest congestion and Denies cough Gastrointestinal: Denies change in bowel habits Genitourinary: Denies dysuria Musculoskeletal: Denies atrophy and Denies myalgias Integumentary/Breasts: Denies dry skin Neurologic: Denies abnormal gait and Denies abnormal movements Psychiatric: Reports depression and suicidal ideation The course of treatment: The patient was familiar with the mental health therapy services available whileon the unit and was encouraged to participate. Psychotropic medications targeting mood and anxiety were started and she was provided supportive and reality oriented therapy. Patient reported that Invega was making her feel suicidal and therefore oral tablet was discontinued. She was open to continuingmonthly injection. She felt that her symptoms have improved on the current medication regimen, and has been compliant with treatment, and reported no side effects. Her sleep and appetite were okay. She has been attending groups and described them as useful building coping skills. The patient has denied any access to firearms or lethal weapons. She states she likes to watch TV and play puzzles with peers. Required some encouragement to go to groups. She felt better than before comingto the hospital and feels hopeful regarding her future. She understands the importance of outpatient follow-up to ensure the stability of her symptoms. Shedenied suicidal or homicidal ideation and verbalized the intent to notify the staff if she has such thoughts. No suicidal or self-injurious behaviors occurredduring inpatient treatment. The patient described that her depressive feelings have been relieved, and she has a better understanding of how to cope with stress due to her inpatient admission. She expresses understanding and says she is better after learning coping skills and the medications prescribed in the inpatient unit. She described this hospitalization as a wake up call and was in a good place to return home and engage fully in her life. Patient stated that she is able to keep her positive thoughts and denied any hopelessness. The patient stated that she was ready to go. She did not meet criteria for involuntary psychiatric hospitalization. Patient achieved maximum benefit from attending inpatient treatment and was suitable for outpatient follow up. I explained to the patient that her discharge from the hospital doesnot mean that her medical care ends here. She needs consistent outpatient follow-up, cognitive behavioral therapy, and should communicate from this point on with her outpatient team. Ms. illness, medication side effects, benefits and risks were reviewed with herprior to discharge. The patient voiced understanding of their diagnosis, the medications recommended along with the importance of medication compliance. The patient was counseled not to stop medications without the supervision of a psychiatrist. The patient was counseled that if there was an increase in mentalhealth issues, depression, anxiety, medication side effects, self harm or thoughts of harm to others, the patient was not to harm them self or stop treatment, but to call [facility], 911 or come to the nearest emergency room.The patient also received information regarding advanced mental and medical health directives during this hospitalization to discuss with their outpatient provider. The plan was discussed with the patient, the nurses and the case management department. The patient voiced agreement with the plan. Discharge disposition: Home with sister. Coordinated via case management. Safe discharge Planning: With the cessation of all suicidal ideation, improvements in mood, and absence of any psychotic symptoms at the time of discharge, aftercare plans were solidified. She was able to formulate a believable Safety Plan. Discharge plans were discussed with the patient, her family, and the treatment team. All agreed with the discharge plan. On the day of discharge, she was evaluated and had no complaints. She denied any SI/HI. She agreed to follow up with outpatient treatment as arranged by case management. She had no complications during her stay. Suicide risk assessment: A thorough review of risk and protective factors was conducted. Discussed with the patient the following recommendations that would help reduce suicide which includes limiting the number of medications to a 15-day supply with one refill at the time of discharge to avoid potential overdose,consistent outpatient follow up preferably within seven days of release, involving family members in her care, and her desire to live. We also discussed availability of outpatient DBT groups which can be lifesaving. She reports good therapeutic alliance, good response to medication management and therapy, availability of local mental health services and willingness to follow up, lack of suicidal ideation, intent or plan, lack of impulsivity, agitation, or psychotic behavior. Pt is future- oriented and understands the importance of outpatient follow-up. Psychiatric experts agree that predicting suicide is impossible but considering positive factors like family and rashard, lack of access to firearms, and desire to continue treatment makes her current suicide risk minimal. Given the chronicity of suicidality, we discussed measures to help her with long-term safety. The patient is not suicidal or psychotic now. To help decreaseher suicide risk, as best I can, I am referring her for outpatient treatment andCBT for long-term follow-up to have somewhere to go and someone to manage her assymptoms and stressors develop. This is the best way to keep her alive. So, we discussed a crisis plan for future suicidality: at the first sign of distress, she will call the hotline; if this is not sufficient, she will 911, then call family members or friends; ultimately, she will come to the ER. Safety: The patient is not acutely psychotic and is safe to continue treatment on an outpatient basis. The patient was made aware of the 12/01 emergency services of the crisis center. She was advised to call 911 or go to the nearest ER in case of a crisis ( (including having thoughts of harming herself or others). Risks (metabolic, EPS, the effect on heart), benefits, and alternatives for medications were discussed. She verbalized understanding. Her consent was obtained. She was advised not to drink alcohol while taking medications. I advised patientthat using drugs can increase risk of impulsiveness and making poor decisions. Continue supportive therapy with some CBT techniques. Psycho-education and compliance counseling were provided. She denies current and is aware to notify her psychiatrist if she becomes due to the risk of harm to the fetus. MSE: Orientation: Alert and oriented to person, place, and time. Appearance/Behavior: Fair grooming and hygiene, calm, cooperative, engaged in the interview. Good eye contact. Normal psychomotor activity. Speech: normal rate, rhythm, volume, and tone. Non pressured. Knowledge: Appropriate for age and level of education Mood: okay Affect: reactive, mood-congruent Thought process: linear, logical, and goal-oriented Thought content: No SI/HI. No AVH. No delusions. Does not appear to be responding to internal stimuli. Concentration: Grossly intact based on track during the interview Associations: No loosening of associations Memory: Able to recall recent and remote historical information Insight: Fair, able to appreciate current symptoms and need for outpatient treatment Judgment: fair, agreed to follow treatment recommendations, socially appropriate with interviewer and staff. Time spent discussing smoking cessation with patient: more than 10 minutes Condition Condition at Discharge: Fair Status at Discharge Functional status at discharge: independent ambulation Time Spent with Patient Time spent providing/coordinating discharge services (# min): 88 Exam Physical Exam Vital Signs: Temp Pulse Resp BP Pulse Ox O2 Del Method 98 F 68 16 107/77 99 Room Air 12/14/22 20:18 12/14/22 20:18 12/14/22 20:18 12/14/22 20:18 12/14/22 20:18 12/14/22 20:18 Discharge Plan Discharge Plan Activity: No Activity Restriction Diet: Regular Prescriptions: New benztropine 0.5 mg Tablet 0.5 mg PO BID 15 Days Qty: 30 2RF mirtazapine 15 mg Tablet 15 mg PO QHS 15 Days Qty: 15 2RF Continued ondansetron 4 mg tablet,disintegrating 4 mg PO TID PRN (Reason: Nausea) cholecalciferol (vitamin D3) 25 mcg (1,000 unit) Tablet 50 mcg PO DAILY 30 Days Qty: 60 0RF cyanocobalamin (vitamin B-12) 1,000 mcg Tablet 1,000 mcg PO QAM Qty: 30 0RF Invega Sustenna 234 mg/1.5 mL syringe 234 mg IM Q28D promethazine 12.5 mg suppository 12.5 mg WV Q6H PRN (Reason: Nausea And Vomiting) Patient Comments: UNWRAP AND INSERT 1 SUPPOSITORY RECTALLY EVERY 6 HOURS NEEDED FOR NAUSEA AND VOMITING FOR 15 DAYS venlafaxine [Effexor XR] 150 mg capsule,extended release 24hr 150 mg PO DAILY Patient Comments: TAKE 1 CAPSULE BY MOUTH EVERY DAY trazodone 50 mg tablet 75 mg PO QHS PRN (Reason: Insomnia) Patient Comments: Pt states she takes 1XD currently. aripiprazole 30 mg tablet 30 mg PO DAILY Discontinued paliperidone 3 mg Tablet Extended Release 24 Hr 3 mg PO BID 15 Days Qty: 30 0RF Follow Up: [facility] [Outside] [facility] [Outside] Viktor Sotelo MD [Primary Care Provider] - (Call your primary provider for any medical needs. ) Documented By: Nimesh Cerda MD [id number] Signed By: <Electronically signed by Nimesh Cerda MD> 12/15/22924 [facility] Work Phone: 1(352) 634-786906-25-2023 Progress note Author Nimesh regalado [facility] December 14, 2022 7:31am Note Date/Time December 14, 2022 7:29 am [facility] [address] [place] [address] Psychiatry Progress Note Signed Patient: Maricarmen Anderson MR#: [id number] : 1980 Acct:[id number] Age/Sex: 42 / F Adm Date: 3 Loc: Room: [address] [place] [address] Type : ADM IN Attending Dr: Eduardo Swain MD Copies to: ~ Date of Service: 12/14/2022 Subjective Subjective Narrative: Ms. Anderson reported that her mood feels depressed but she is learning coping skills. She denied any AVH. She he feels meds are working. Denied SI/HI. Mental Status Exam: Appearance: grossly normal Mental Status: mental status grossly normal Mood: dysthymic mood Affect: dysphoric affect Speech and Movement: speech and movement normal and speech clear Attitude: cooperative Thought Process: normal Thought Content: Reported baseline hallucinations, no homicidality, reported suicidality Insight: fair Judgment: fair Exam Physical Exam Vital Signs: Temp Pulse Resp BP Pulse Ox O2 Del Method 97.7 F 63 18 104/74 98 Room Air 12/13/22 20:05 12/13/22 20:05 12/13/22 20:05 12/13/22 20:05 12/13/22 20:05 12/13/22 20:05 Assessment/Plan Assessment/Plan (1) Schizoaffective disorder: Code(s): F25.9 - Schizoaffective disorder, unspecified Status: Acute Plan Patient reports feeling better and denied SI/HI. Continue Cogentin 0.5 mg po bid Continue Abilify 30 mg, Effexor 150 mg, Remeron 15 mg Continue to monitor mental status Encourage group participation and medication compliance Risk benefits alternatives explained Documented By: Nimesh Cerda MD 3 [id number] Signed By: <Electronically signed by Nimesh Cerda MD> 12/14/22 0731 [facility] Work Phone: 1(780) 259-585006-24-2023 Progress note Author Nimesh regalado [facility] December 13, 2022 8:43am Note Date/Time December 13, 2022 6:53 am [facility] [address] [place] [address] Psychiatry Progress Note Signed Patient: Maricarmen Anderson MR#: [id number] : 1980 Acct:[id number] Age/Sex: 42 / F Adm Date: 3 Loc: Room: [address] [place] [address] Type : ADM IN Attending Dr: Eduardo Swain MD Copies to: ~ Date of Service: 12/13/2022 Subjective Subjective Narrative: Ms. Anderson reported that her mood feels depressed and just feels tired and not wanting to do anything. She said oral Invega was causing tremors and therefore it was stopped. I discussed with her adding Cogentin 0.5 mg p.o. twice daily tohelp with EPS side effects. She has been following up with Dr. Zhang and they have been working on medication adjustments. She reported that she has some lack of motivation. She reported that she still has some baseline hallucinationsat this time but overall they are manageable. Mental Status Exam: Appearance: grossly normal Mental Status: mental status grossly normal Mood: dysthymic mood Affect: dysphoric affect Speech and Movement: speech and movement normal and speech clear Attitude: cooperative Thought Process: normal Thought Content: Reported baseline hallucinations, no homicidality, reported suicidality Insight: fair Judgment: fair Exam Physical Exam Vital Signs: Temp Pulse Resp BP Pulse Ox O2 Del Method 97.6 F 61 16 101/63 98 Room Air 12/12/22 18:45 12/12/22 18:45 12/12/22 18:45 12/12/22 18:45 12/12/22 18:45 12/12/22 18:45 Assessment/Plan Assessment/Plan (1) Schizoaffective disorder: Code(s): F25.9 - Schizoaffective disorder, unspecified Status: Acute Plan Patient presenting due to suicidal thoughts. She has also been experiencing some anhedonia and lack of motivation. Oral Invega was stopped. We will start Cogentin 0.5 mg po bid Continue Abilify 30 mg, Effexor 150 mg, Remeron 15 mg Continue to monitor mental status Encourage group participation and medication compliance Risk benefits alternatives explained Documented By: Nimesh Cerda MD 3 [id number] Signed By: <Electronically signed by Nimesh Cerda MD> 12/13/22 0843 [facility] Work Phone: [phone]) 141-681306-23-2023 History and physical note Author Eduardo Swain [facility] December 12, 2022 10:19am Note Date/Time December 12, 2022 10:1 9am [facility] [address] [place] [address] Psychiatry H&P Signed Patient: Maricarmen Anderson MR#: [id number] : 1980 Acct:[id number] Age/Sex: 42 / F Adm Date: 3 Loc: Room: [address] [place] [address] Type: ADM IN Attending Dr: Eduardo Swain MD Copies to: MD Viktor Duncan MD~ Date of Service: 12/12/2022 HPI History of Present Illness History of present illness: Ms. Anderson is a 42 year old female who presented due to concern for suicidal ideation and tremor. Upon assessment, patient reported that since her Invega Sustenna she has been having some suicidal thoughts. She stated that the medication has also been causing her to have a tremor that is intermittent. She reported that her mood feels depressed and just feels tired and not wanting to do anything. She reported that she has some lack of motivation. She reported that her outpatientprovider has been talking about possibly using a different medication and would see how she would respond after this Invega Sustenna. She reported that she still has some baseline hallucinations at this time but overall they are manageable. Past psych history: Schizoaffective Past hospitalizations: Previous past psychiatric hospitalizations Past suicide attempts: Twice in 2021 via overdose Family psych history: Reports her father is bipolar Previous medications: Effexor, Trazodone, Remeron, Invega, and Abilify. Alcohol and drug use: Denies. Living: With family Employment: Disabled Relationships: States that she has good emotional support from friends and family. Review of symptoms: Constitutional: Denies chills and Denies fever(s) Eyes: Denies change in vision ENT: Denies abnormal hearing Cardiovascular: Denies chest pain Respiratory: Denies chest congestion and Denies cough Gastrointestinal: Denies change in bowel habits Genitourinary: Denies dysuria Musculoskeletal: Denies atrophy and Denies myalgias Integumentary/Breasts: Denies dry skin Neurologic: Denies abnormal gait and Denies abnormal movements Psychiatric: Reports depression and suicidal ideation Physical exam: Const: cooperative Nutritional Appearance: average body habitus Orientation: alert, awake and oriented x3 HEENT: Head normal to inspection, hearing grossly normal bilaterally, external nose normal, face symmetric Eyes: appearance normal, both eyes and all related structures, sclerae normal Neck: normal visual inspection and full ROM Resp: normal respiratory effort, able to speak in complete sentences and symmetric chest movement Cardio: regular rate GI: normal to inspection and non-distended : deferred Skin: no rashes or lesions noted Neuro: CNI: Normal olfaction CNI: normal olfaction CNII: Visual maria intact, CNIII,IV,: EOM intact, no nystagmus. Pupils equal, round, reactive to light and accommodation, CNV: Sensation intact to light touch, CNVII: Raises eyebrows, smile/frown, puff out cheeks symmetrically, CNVIII: Hearing intact bilaterally, CNIX,X: Voice normal, soft palate elevation normal, symmetrical, CNXI: Shoulder shrug strong, equal bilaterally, CNXII: Tongue protrusion midline, movement symmetrical. Extrem: normal to inspection and full ROM Mental Status Exam: Appearance: grossly normal Mental Status: mental status grossly normal Mood: dysthymic mood Affect: dysphoric affect Speech and Movement: speech and movement normal and speech clear Attitude: cooperative Thought Process: normal Thought Content: Reported baseline hallucinations, no homicidality, reported suicidality Insight: fair Judgment: fair PMFSH Vaccinated for COVID-19?: Unknown Medical History (Updated 12/12/22 @ 01:22 by Ke Cage DO) Anemia Bipolar disorder Chiari malformation type I Gastroparesis s/p gastrectomy GERD (gastroesophageal reflux disease) History of induced hypertension Myasthenia gravis Pacemaker Port-A-Cath in place Schizoaffective disorder Schizophrenia Status post placement of implantable loop recorder REMOVED Surgical History History of appendectomy History of cholecystectomy History of gastric surgery Family History Father ALS (amyotrophic lateral sclerosis) Heart disease Mother Diabetes Social History Smoking Status: Never smoker Substance Use Type: None Meds Medications and Allergies Allergies hydromorphone [From Dilaudid] Adverse Reaction (Verified 12/11/22 17:47) Itching Home Medications trazodone 50 mg tablet 75 mg PO QHS PRN Insomnia 07/02/22 [History Confirmed 12/11/22] venlafaxine 150 mg capsule,extended release 24 hr (Effexor XR) 150 mg PO DAILY 07/02/22 [History Confirmed 12/11/22] aripiprazole 30 mg tablet 30 mg PO DAILY 09/03/22 [History Confirmed 12/11/22] paliperidone 3 mg tablet,extended release 24 hr 3 mg PO BID 15 days #30 tabs 09/07/22 [Rx Confirmed 12/11/22] ondansetron 4 mg disintegrating tablet 4 mg PO TID PRN Nausea 10/28/22 [History Confirmed 12/11/22] cholecalciferol (vitamin D3) 25 mcg (1,000 unit) tablet 50 mcg PO DAILY 30 days #60 tabs 11/01/22 [Rx Confirmed 12/11/22] cyanocobalamin (vitamin B-12) 1,000 mcg tablet 1,000 mcg PO QAM #30 tabs 11/01/22 [Rx Confirmed 12/11/22] paliperidone palmitate 234 mg/1.5 mL intramuscular syringe (Invega Sustenna) 234mg IM Q28D 12/11/22 [History Confirmed 12/11/22] promethazine 12.5 mg rectal suppository 12.5 mg WV Q6H PRN Nausea And Vomiting 12/11/22 [History Confirmed 12/11/22] Exam Physical Exam Vital Signs: Temp Pulse Resp BP Pulse Ox O2 Del Method 97.7 F 88 16 108/66 95 Room Air 12/12/22 07:30 12/12/22 07:30 12/12/22 07:30 12/12/22 07:30 12/12/22 07:30 12/12/22 07:30 Results Labs 12/11/22 18:59 12/11/22 18:59 Psychiatry Labs: 12/11/22 12/11/22 12/11/22 18:59 18:59 19:08 RBC 4.38 Hgb 14.2 Hct 41.8 MCV 95.4 MCH 32.4 MCHC 33.9 RDW 12.9 Plt Count 185 MPV 7.9 Sodium 140 Potassium 3.8 Chloride 107 Carbon Dioxide 24.2 Anion Gap 12.6 BUN 7 Creatinine 0.78 Calcium 9.9 Total Bilirubin 0.6 AST 20 ALT 13 Alkaline Phosphatase 83 Total Protein 7.5 Albumin 4.8 Urine Color Yellow Urine Appearance Slightly cloudy A Urine pH 6.0 Ur Specific [place] 1.015 Urine Protein Negative Urine Glucose (UA) Normal Urine Ketones Negative Urine Occult Blood Negative Urine Nitrite Negative Ur Leukocyte Esterase 2+ H Urine RBC 0-1 Urine WBC 5-9 H Assessment/Plan (1) Schizoaffective disorder: Code(s): F25.9 - Schizoaffective disorder, unspecified Status: Acute Plan Patient presenting due to suicidal thoughts. She has also been experiencing some anhedonia and lack of motivation. She reported that symptoms started afterInvega Sustenna We will stop oral Invega at this time Continue Abilify 30 mg, Effexor 150 mg, Remeron 15 mg Continue to monitor mental status Encourage group participation and medication compliance Risk benefits alternatives explained Documented By: Eduardo Swain MD 12/12/22 1016 Signed By: <Electronically signed by Eduardo Swain MD> 12/12/22 1019 [facility] Work Phone: 1(761) 428-225106-20-2023 Hospital Discharge instructions Patient Education 12/09/2022 09:42:03 EU - Cystoscopy with Urethral Dilation Discharge Instructions (CUSTOM) Cystoscopy with Urethral Dilation Voiding after the procedure: there may be some pain, urethral bleeding, burning, urgency, frequencyand blood tinged urine following the procedure. These symptoms usually resolve within 2-5 days. Drink the amount of fluid it takes to keep the urine pink to yellow or clear in color. Drinking enough water and fluids will help to ease any discomfort after your procedure. If you are having problems that seem out of the ordinary, please call. If unable to contact your physician and you feel it is an emergency, go to the nearest emergency room or call 911 Diet you may resume your normal diet. Activity you may resume your normal activities Call if you have a fever over 100 degrees Follow Up Care 12/02/2022 10:34:47 With:Michael VIVEROS Address: [facility] [address] [place] [address]- Business (1) When:06/10/2023 09:41:40 Comments:Patient is to get scheduled for a CT abdomen and pelvis today [facility]05-13-2023 Discharge summary Author Nimesh regalado [facility] November 01, 2022 9:36am Note Date/Time November 01, 2022 9:34a m [facility] [address] [place] [id number] Discharge Summary Signed Patient: Maricarmen Anderson MR#: [id number] : 1980 Acct:[id number] Age/Sex: 42 / F Adm Date: 3 Loc: Room: [address] [place] [address]: Toribio Cerda MD Copies to: MD Viktor Goldsmith MD~ Providers Date of Discharge: 11/01/22 Discharging Provider: Toribio Cerda Primary Care Provider: Viktor Sotelo Consults: 10/28/22 20:51 Consult to Case Management Routine 10/28/22 21:31 Consult to Dietitian Routine 10/29/22 06:57 Consult to Adult Hospitalist Routine Discharge Diagnosis (1) Nausea & vomiting: (2) Gastroparesis: Final Diagnosis Final Discharge Diagnosis: Schizoaffective disorder Summary Hospital Course Hospital course: Ms. Anderson is a 41 year old female who presents with worsening of underlying schizoaffective disorder with auditory hallucinations due to being unable to take medications. The patient states she has gastroparesis and vomits up anything she eats including her medications. Patient was personally seen by me on the day of the encounter.? I reviewed the history and performed the edward elements of the assessment.? I formulated the planof care and confirmed this with the medical student as noted below Patient stated that she has not been able to take the medicine due to persistentvomiting. She said meds do work and wants to keep same med regimen. I inquired about polypharmacy and she said she wants to address vomiting first. She has a history of gastroparesis.? Her last bowel movement was yesterday and she states that she has not eaten in 2 weeks. Workup in the ER was unremarkable in regards to her recurrent vomiting but she was diagnosed previously with a UTI and given Macrobid. She states that the voices are unfamiliar to her and that they are telling her to kill herself. She denies current suicidal or homicidal ideations. Past psych history: Schizoaffective Past hospitalizations: Last year due to severe hallucinations Past suicide attempts: Twice in 2021 via overdose Family psych history: Reports her father is bipolar Previous medications: Effexor, Trazodone, Remeron, Invega, and Abilify. States medications work effectively but unable to take them due to recurrent vomiting The course of treatment: The patient reported that she was feeling nauseated and was not able to keep hermedications down. She follows up with Dr. Zhang who recommended inpatient admission as recommended after his sedations were worsening in the context of lack of medication effectiveness due to frequent emesis. Patient has history of gastroparesis and hospitalist was consulted. Please review their notes. She felt that her symptoms have improved on the current medication regimen, and has been compliant with treatment, and reported no side effects. She noted improvement of nasuea and did not wish to change her existing psychiatric med regimen describing it as effecitve, I was just vomiting a lot. She said her family will pick her up at the time of discharge. She has been attending groups and described them as useful building coping skills. The patient has denied any access to firearms or lethal weapons. She felt better than before coming to the hospital and feels hopeful regarding her future. She understands the importance of outpatient follow-up to ensure thestability of her symptoms. She denied suicidal or homicidal ideation and verbalized the intent to notify the staff if she has such thoughts. No suicidal or self-injurious behaviors occurred during inpatient treatment. She did not show any symptoms of isa, psychosis or agitation. She denied any commanding auditory hallucination. She was given emotional support, counseled, and educated regarding the prognosis of her diagnosis. She expresses understanding and says she is better after learning coping skills and the medications prescribed in the inpatient unit. She was in a good place to return home and engage fully in her life Staff noted the patient is currently functioning at her baseline. She is doing fairly well. She reports improved mood and appetite, improved ability to enjoy certain activities, reduction of feelings of worthlessness or guilt, and improved focus and concentration. She is tolerating her medications without difficulty. I did talk with her about the importance of medication compliance as she believes that medications made a good difference. Discharge disposition: Home with family. Coordinated via case management. Safe discharge Planning: With the cessation of all suicidal ideation, improvements in mood, and absence of any psychotic symptoms at the time of discharge, aftercare plans were solidified. She was able to formulate a believable Safety Plan. Discharge plans were discussed with the patient and the treatment team. All agreed with the discharge plan. On the day of discharge, she was evaluated and had no complaints. She denied any SI/HI. She agreed to follow up with outpatient treatment as arranged by case management. She had no complications during her stay. Suicide risk assessment: A thorough review of risk and protective factors was conducted. Discussed with the patient the following recommendations that would help reduce suicide which includes following up with GI to ensure her gastroparesis is well managed, consistent outpatient follow up preferably withinseven days of release, involving family members in her care, and her desire to live. We also discussed availability of outpatient DBT groups which can be lifesaving. She reports good therapeutic alliance, good response to medication management and therapy, availability of local mental health services and willingness to follow up, lack of suicidal ideation, intent or plan, lack of impulsivity, agitation, or psychotic behavior. Pt is future-oriented and understands the importance of outpatient follow-up. Most psychiatric experts agree that predicting suicide is not an option but considering positive factors like family and rashard, lack of access to firearms, and desire to continue treatment makes her current suicide risk minimal. Given the chronicity of suicidality, we discussed measures to help her with long-term safety. The patient is not suicidal or psychotic now. To help decreaseher suicide risk, as best I can, I am referring her for outpatient treatment andCBT for long-term follow-up to have somewhere to go and someone to manage her assymptoms and stressors develop. This is the best way to keep her alive. So, we discussed a crisis plan for future suicidality: at the first sign of distress, she will call the hotline; if this is not sufficient, she will 911, then call family members or friends; ultimately, she will come to the ER. Safety: The patient is not acutely psychotic and is safe to continue treatment on an outpatient basis. The patient was made aware of the 12/01 emergency services of the crisis center. She was advised to call 911 or go to the nearest ER in case of a crisis ( (including having thoughts of harming herself or others). Risks (metabolic, EPS, the effect on heart), benefits, and alternatives for medications were discussed. She verbalized understanding. Her consent was obtained. She was advised not to drink alcohol while taking medications. I advised patientthat using drugs can increase risk of impulsiveness and making poor decisions. Continue supportive therapy with some CBT techniques. Psycho-education and compliance counseling were provided. She denies current and is aware to notify her psychiatrist if she becomes due to the risk of harm to the fetus. MSE: Orientation: Alert and oriented to person, place, and time. Appearance/Behavior: Fair grooming and hygiene, calm, cooperative, engaged in the interview. Good eye contact. Normal psychomotor activity. Speech: normal rate, rhythm, volume, and tone. Non pressured. Knowledge: Appropriate for age and level of education Mood: okay Affect: reactive, mood-congruent Thought process: linear, logical, and goal-oriented Thought content: No SI/HI. No AVH. No delusions. Does not appear to be responding to internal stimuli. Concentration: Grossly intact based on track during the interview Associations: No loosening of associations Memory: Able to recall recent and remote historical information Insight: Fair, able to appreciate current symptoms and need for outpatient treatment Judgment: fair, agreed to follow treatment recommendations, socially appropriate with interviewer and staff. Time spent discussing smoking cessation with patient: more than 10 minutes Condition Condition at Discharge: Fair Status at Discharge Functional status at discharge: independent ambulation Time Spent with Patient Time spent providing/coordinating discharge services (# min): 39 Diagnostic Studies Completed and Pending Studies Labs on day of discharge: 11/01/22 06:20: PHA Creatinine Clear 114.96, Sodium 140, Potassium 4.0, [id number], Carbon Dioxide 26.4, Anion Gap 10.6, BUN 14, Creatinine 0.82, Est GFR (CKD-EPI) > 60.0, Glucose 74, Calcium 8.8, Vitamin B12 205 11/01/22 06:20: Corrected WBC 5.1, Uncorrected WBC Count 5.1, RBC 3.89, Hgb 12.5, Hct 37.5, MCV 96.5, MCH 32.2, MCHC 33.4, RDW 12.9, Plt Count 184, MPV 7.8,Neut % (Auto) 54.1, Lymph % (Auto) 34.7, Horry % (Auto) 6.1, Eos % (Auto) 4.2, Baso % (Auto) 0.9, Nucleat RBC Rel Count 0.1, Neut # (Auto) 2.8, Lymph # (Auto) 1.8, Horry # (Auto) 0.3, Eos # (Auto) 0.2, Baso # (Auto) 0.0 Exam Physical Exam Vital Signs: Temp Pulse Resp BP Pulse Ox O2 Del Method 97.6 F 67 16 104/66 95 Room Air 11/01/22 07:24 11/01/22 07:24 11/01/22 07:24 11/01/22 07:24 11/01/22 07:24 11/01/22 07:24 Discharge Plan Discharge Plan Patient Disposition: Home Activity: No Activity Restriction Diet: Regular Additional Instructions: No Activity Restrictions Regular Diet continue your vitamin therapy after gastric surgery as prescribed. Your vitaminD and B12 were found low while you were i the hospital. Instructions: Depression, Adult (DC), Gastroparesis (Delayed Gastric Emptying) (DC), [facility] DC Instructions Prescriptions: New promethazine [Promethegan] 12.5 mg Suppository 12.5 mg WV Q6H PRN (Reason: Nausea And Vomiting) 15 Days Qty: 15 0RF metoclopramide HCl 10 mg Tablet 10 mg PO TID.AC 15 Days Qty: 45 0RF cholecalciferol (vitamin D3) 25 mcg (1,000 unit) Tablet 50 mcg PO DAILY 30 Days Qty: 60 0RF cyanocobalamin (vitamin B-12) 1,000 mcg Tablet 1,000 mcg PO QAM Qty: 30 0RF Continued tizanidine [Zanaflex] 4 mg Tablet 5 mg PO QHS Rx Instructions: Per Pt. Report she takes 5 mg at HS ondansetron 4 mg tablet,disintegrating 4 mg PO TID PRN (Reason: Nausea) mirtazapine [Remeron] 15 mg tablet 15 mg PO HS Patient Comments: TAKE 1 TABLET BY MOUTH EVERYDAY AT BEDTIME venlafaxine [Effexor XR] 150 mg capsule,extended release 24hr 150 mg PO DAILY Patient Comments: TAKE 1 CAPSULE BY MOUTH EVERY DAY trazodone 50 mg tablet 75 mg PO QHS PRN (Reason: Insomnia) Patient Comments: Pt states she takes 1XD currently. aripiprazole 30 mg tablet 30 mg PO DAILY paliperidone 3 mg Tablet Extended Release 24 Hr 3 mg PO BID 15 Days Qty: 30 0RF Invega Sustenna 156 mg/mL Syringe 156 mg IM Q28D 30 Days Qty: 1 0RF Follow Up: [facility] [Outside] [facility] [Outside] - 11/11/22 10:00 am (At this appointment you will see the nurse, your counselor, and Dr. Zhang. You will also receive your long acting injection. This appointment will take appoximately 2-1/2 hours. You may bring a snack if you would like. ) [facility] [Outside] (Case Management: You will RECEIVE PHONE CALL on Thursday11/03/22 between the hours of 8:00am and 12:00pm.) Viktor Sotelo MD [Primary Care Provider] - (Call for medical follow-up) Clemente Eng MD [Referring] - (call to schedule follow up appointment with ongoing symptoms of gastroparesis. Our contact with them in hospital indicated you have no current standing appointments with any [facility] physicians. ) Documented By: Nimesh Cerda MD 3 [id number] Signed By: <Electronically signed by Nimesh Cerda MD> 11/01/22 0936 [facility] Work Phone: 1(559) 903-699305-12-2023 Progress note Author Afshan Hines [facility] October 31, 2022 2:14pm Note Date/Time October 31, 2022 2:09p m [facility] [address] [place] [address] Hospitalist Progress Note Signed Patient: Maricarmen Anderson MR#: [id number] : 1980 Acct:[id number] Age/Sex: 42 / F Adm Date: 3 Loc: Room: [address] [place] [address] Type: ADM IN Attending Dr: Toribio Cerda MD Copies to: ~ Date of Service: 10/31/2022 Subjective Subjective Narrative: Patient is seen and examined. She is resting in bed at the time of my visit. Nursing is still documenting intermittent nausea or vomiting reported by her however emesis is not visualized by nursing staff. She continues to take as needed medications. Gastroparesis is a chronic condition and she is s/p Elaine-en-Y bypass for this purpose not weight loss. Provider did reach out to [facility] Dr. Eng office for further recommendations since she had previously advised that she had an appointment later this month. Their office indicated that she currently has no outstanding appointments with any [facility] provider. Patient is encouraged to continue symptomatic management. Nursing staff indicates she is eating small amounts however this is not considered abnormal tohave small multiple meals and snacks during the day due to reduced gastric size Exam Physical Exam Vital Signs: Temp Pulse Resp BP Pulse Ox O2 Del Method 98.0 F 71 16 122/76 96 Room Air 10/31/22 07:30 10/31/22 07:30 10/31/22 07:30 10/31/22 07:30 10/31/22 07:30 10/31/22 09:00 Narrative: CONST- alert, in bed, no acute distress CARDIAC- RRR no abnormal heart tones PULM- diminished without wheeze or rhonchi, RA, no accessory muscle use or coughnoted ABD- S/NT, NABS, obese EXTREM- no edema BLE, calves nontender SKIN- W/D, good turgor Objective Lab Results 10/28/22 16:00 10/30/22 06:17 Microbiology Results Microbiology 10/28/22 15:13 Urine - Clean-Voided Midstream Urine Culture - Final 15,000 colonies/ml mixed bacterial skin contaminants 2 Days Meds Allergies and Active Meds Allergies hydromorphone [From Dilaudid] Adverse Reaction (Verified 10/28/22 18:34) Itching Active Meds: Active Medications Generic Name Dose Route Start Last Admin Trade Name Freq PRN Reason Stop Dose Admin Acetaminophen 500 mg 10/28/22 18:53 Acetaminophen 500 Mg Tablet PO 10/28/23 18:52 Q6H PRN Fever or Pain Al Hydrox/Mg Hydrox/Simethicone 30 ml 10/28/22 18:53 Mag Hydrox/Al Hydrox/Simeth 30 Ml Udc PO 10/28/23 18:52 Q6H PRN Indigestion Aripiprazole 30 mg 10/29/22 09:00 10/31/22 09:49 Aripiprazole 30 Mg Tablet PO 10/29/23 08:59 30 mg DAILY TODD Administration Benztropine Mesylate 0.5 mg 10/28/22 18:53 Benztropine 2 Mg/2 Ml Ampul IM 10/28/23 18:52 Q6H PRN Dystonia Benztropine Mesylate 0.5 mg 10/28/22 18:53 Benztropine 0.5 Mg Tablet PO 10/28/23 18:52 Q6H PRN Dystonia Hydroxyzine Pamoate 50 mg 10/28/22 18:53 Hydroxyzine Pamoate 50 Mg Capsule PO 10/28/23 18:52 Q6H PRN Anxiety Ibuprofen 400 mg 10/28/22 18:53 Ibuprofen 400 Mg Tablet PO 10/28/23 18:52 Q6H PRN Pain Magnesium Hydroxide 30 ml 10/28/22 18:53 Magnesium Hydroxide Susp 30 Ml Udc PO 10/28/23 18:52 Q6H PRN Constipation Metoclopramide HCl 10 mg 10/29/22 09:47 10/31/22 12:27 Metoclopramide 10 Mg Tablet PO 10/29/23 09:46 10 mg Q6H PRN Administration Nausea Mirtazapine 15 mg 10/28/22 22:00 10/30/22 21:22 Mirtazapine 15 Mg Tablet PO 10/28/23 21:59 15 mg HS TODD Administration Olanzapine 5 mg 10/28/22 18:53 Olanzapine 10 Mg Vial *Nf* IM 10/28/23 18:52 Q6H PRN Agitation Olanzapine 5 mg 10/28/22 18:53 Olanzapine 5 Mg Tablet PO 10/28/23 18:52 Q6H PRN Agitation Ondansetron HCl 4 mg 10/28/22 20:50 10/31/22 09:50 Ondansetron Odt 4 Mg Tab.Rapdis PO 10/28/23 20:49 4 mg TID PRN Administration Nausea Paliperidone 3 mg 10/28/22 21:00 10/31/22 09:49 Paliperidone 24hr Er 3 Mg Tab.Er.24 PO 10/28/23 20:59 3 mg BID TODD Administration Paliperidone Palmitate 156 mg 11/11/22 09:00 Paliperidone Palmitate 156 Mg/Ml Syringe IM 11/11/23 08:59 Q28D TODD Promethazine HCl 12.5 mg 10/29/22 19:16 10/30/22 15:11 Promethazine 12.5 Mg Supp.Rect WV 10/29/23 19:15 12.5 mg Q6H PRN Administration Nausea And Vomiting Sodium Chloride 0 ml 10/28/22 14:48 Sodium Chloride 0.9 % 10 Ml Syringe IV-PUSH 10/28/23 14:47 PRN PRN Flush Sterile Water 2.1 ml 10/28/22 18:53 Water For Injection,Sterile 10 Ml Vial INJECTION 10/28/23 18:52 PRN PRN To dilute OLANZapine (ZyPREXA) Tizanidine HCl 4 mg 10/28/22 22:00 10/30/22 21:23 Tizanidine 4 Mg Tablet PO 10/28/23 21:59 4 mg QHS TODD Administration Trazodone HCl 50 mg 10/28/22 18:53 10/29/22 21:36 Trazodone 50 Mg Tablet PO 10/28/23 18:52 50 mg QHS PRN Administration Insomnia Trazodone HCl 75 mg 10/28/22 20:47 10/30/22 21:23 Trazodone 50 Mg Tablet PO 10/28/23 20:46 75 mg QHS PRN Administration Insomnia Venlafaxine HCl 150 mg 10/29/22 09:00 10/31/22 09:49 Venlafaxine Er 150 Mg Cap.Er.24h PO 10/29/23 08:59 150 mg DAILY TODD Administration Vitamin D 50 mcg 10/30/22 09:00 10/31/22 09:49 Cholecalciferol 25 Mcg (1,000 Units) Tablet PO 10/30/23 08:59 50 mcg DAILY TODD Administration A&P - Hospitalist Assessment/Plan (1) Nausea & vomiting: (2) Gastroparesis: Plan Gastroparesis hx Elaine en y for gastroparesis 2019 N/V, chronic -Patient follows [facility] Dr [place] Eng [phone] -metoclopramide scheduled, prn ondansetron/ promethazine for symptoms -note patient is 2 months ago Chronic conditions 1. Chronic back pain?tizanidine Schizoaffective disorder -Further plan of care per inpatient psychiatric team for psychoactive medicationmanagement/adjustment in psych with therapy Documented By: LI Coleman 3 [id number] Signed By: <Electronically signed by PING-RAISA Hines> 10/31/22 1418 [facility] Work Phone: 1(321) 770-289005-12-2023 Progress note Author Nimesh regaldao [facility] October 31, 2022 8:45am Note Date/Time October 31, 2022 8:45a m [facility] [address] [place] [address] Psychiatry Progress Note Signed Patient: Maricarmen Anderson MR#: [id number] : 1980 Acct:[id number] Age/Sex: 42 / F Adm Date: 3 Loc: 1S Room: [address] [place] [address] Type : ADM IN Attending Dr: Toribio Cerda MD Copies to: ~ Date of Service: 10/31/2022 Subjective Subjective Narrative: Ms. Anderson was seen and evaluated at bedside this morning. She reports mild improvement of her voices and has been less nauseated. She has been spending most of her time inside her room. The patient denies current suicidal or homicidal ideation, and verbalized the intent to notify staff if there are such thoughts. The patient denies recent suicidal or self injurious behaviors. She wants to continue same meds. Mental Status Exam: Appearance: grossly normal Mental Status: mental status grossly normal Mood: dysthymic mood Affect: dysphoric affect Speech and Movement: speech and movement normal and speech clear Attitude: cooperative Thought Process: normal Thought Content: Reports improvement auditory hallucinations, no homicidality orsuicidality Insight: fair Judgment: fair Exam Physical Exam Vital Signs: Temp Pulse Resp BP Pulse Ox O2 Del Method 98.2 F 66 16 113/74 93 L Room Air 10/30/22 22:28 10/30/22 22:28 10/30/22 22:28 10/30/22 22:28 10/30/22 22:28 10/30/22 22:28 Assessment/Plan Assessment/Plan (1) Schizoaffective disorder: Code(s): F25.9 - Schizoaffective disorder, unspecified Status: Acute (2) Auditory hallucinations: Code(s): R44.0 - Auditory hallucinations Status: Acute (3) Nausea & vomiting: Code(s): R11.2 - Nausea with vomiting, unspecified Status: Acute Plan Patient presented with worsening of underlying schizoaffective disorder with auditory hallucinations due to being unable to take medications. Auditory hallucinations have improved. Continue with current medications since patient has demonstrated some improvement. Will be able to determine if the appropriate dose and adjust accordingly once patients recurrent nausea and vomiting improves. Hospitalists was consulted for recurrent nausea and vomiting. Continue with metoclopramide and Zofran per hospitalists recommendation Risks, benefits and indications of medications were discussed with the patient. The patient verbalized understanding. Monitor suicidal behaviors for safety of self (15-minute face check). Recommend attending groups and psychoeducation for building coping skills. No abnormal movements noted on exam. AIMS is Zero. Documented By: Nimesh Cerda MD 3 [id number] Signed By: <Electronically signed by Nimesh Cerda MD> 10/31/22 0845 [facility] Work Phone: 1(621) 472-419605-11-2023 Consult note Author Rosendo Holland [facility] 2022 1:42pm Note Date/Time October 29, 2022 3:40p m [facility] [address] [place] [address] Hospitalist Consult Note Signed Patient: Maricarmen Anderson MR#: [id number] : 1980 Acct:[id number] Age/Sex: 41 / F Adm Date: 3 Loc: Room: [address] [place] [address] Type: ADM IN Attending Dr: Toribio Cerda MD Copies to: MD Afshan Goldsmith, ANP- MD Rosendo Hsu, DO~ HPI DATE OF CONSULTATION: 10/29/22 REQUESTING PROVIDER: Toribio Cerda Consult Narrative Reason for Consult: Nausea vomiting gastroparesis HPI: 41-year-old female past medical history significant for bipolar, Chiari malformation type I, gastroparesis history of partial gastrectomy, GERD, myasthenia gravis, pacemaker. Patient presented to the emergency department with mental health complaints. She was admitted to the inpatient psychiatric unit for further management and care. Today hospitalist team was consulted for nausea vomiting with history of gastroparesis. Upon chart review it is noted that as needed medication ondansetron has not been given for 12 hours now despite nursing reports that the patient is currently is nauseated and did not eat breakfast due to this. Normal BM this AM. Did eat 25% lunch and 25% dinnerbut vomited after dinner. Staff gently encouraged to utilize as needed medications and metoclopramide will be added. [facility] for [facility] and has upcoming appointment soon as this is a chronic condition. Patient seen and examined. She endorsees LLQ pain though not with palpation. Denies chest pain or palpitations. No cough, dyspnea, or pain with inspiration. No abdominal pain or indigestion, constipation or diarrhea. Endorses nausea/vomiting and poor intake of foods. No dysuria or retention. No headache or dizziness. No fevers or chills. Review of Systems Review of Systems All other systems reviewed & are negative unless noted below or in HPI [facility] Attestation Statement: The following information was validated with the patient. Vaccinated for COVID-19?: No Medical History (Updated 10/29/22 @ 18:56 by Afshan Hines, ANP-) Anemia Bipolar disorder Chiari malformation type I Gastroparesis s/p gastrectomy GERD (gastroesophageal reflux disease) History of induced hypertension Myasthenia gravis Pacemaker Port-A-Cath in place Schizoaffective disorder Schizophrenia Status post placement of implantable loop recorder REMOVED Surgical History History of appendectomy History of cholecystectomy History of gastric surgery Family History Father ALS (amyotrophic lateral sclerosis) Heart disease Mother Diabetes Social History Smoking Status: Never smoker Substance Use Type: None Meds Medications and Allergies Allergies hydromorphone [From Dilaudid] Adverse Reaction (Verified 10/28/22 18:34) Itching Home Medications mirtazapine 15 mg tablet (Remeron) 15 mg PO HS 12/09/21 [History Confirmed 10/28/22] trazodone 50 mg tablet 75 mg PO QHS PRN Insomnia 07/02/22 [History Confirmed 10/28/22] venlafaxine 150 mg capsule,extended release 24 hr (Effexor XR) 150 mg PO DAILY 07/02/22 [History Confirmed 10/28/22] aripiprazole 30 mg tablet 30 mg PO DAILY 09/03/22 [History Confirmed 10/28/22] paliperidone 3 mg tablet,extended release 24 hr 3 mg PO BID 15 days #30 tabs 09/07/22 [Rx Confirmed 10/28/22] paliperidone palmitate 156 mg/mL intramuscular syringe (Invega Sustenna) 156 mg IM Q28D 30 days #1 mL 09/07/22 [Rx Confirmed 10/28/22] ondansetron 4 mg disintegrating tablet 4 mg PO TID PRN Nausea 10/28/22 [History Confirmed 10/28/22] tizanidine 4 mg tablet (Zanaflex) 5 mg PO QHS 10/28/22 [History Confirmed 10/28/22] Active Medications: Active Medications Generic Name Dose Route Start Last Admin Trade Name Freq PRN Reason Stop Dose Admin Acetaminophen 500 mg 10/28/22 18:53 Acetaminophen 500 Mg Tablet PO 10/28/23 18:52 Q6H PRN Fever or Pain Al Hydrox/Mg Hydrox/Simethicone 30 ml 10/28/22 18:53 Mag Hydrox/Al Hydrox/Simeth 30 Ml Udc PO 10/28/23 18:52 Q6H PRN Indigestion Aripiprazole 30 mg 10/29/22 09:00 10/29/22 09:34 Aripiprazole 30 Mg Tablet PO 10/29/23 08:59 30 mg DAILY TODD Administration Benztropine Mesylate 0.5 mg 10/28/22 18:53 Benztropine 2 Mg/2 Ml Ampul IM 10/28/23 18:52 Q6H PRN Dystonia Benztropine Mesylate 0.5 mg 10/28/22 18:53 Benztropine 0.5 Mg Tablet PO 10/28/23 18:52 Q6H PRN Dystonia Hydroxyzine Pamoate 50 mg 10/28/22 18:53 Hydroxyzine Pamoate 50 Mg Capsule PO 10/28/23 18:52 Q6H PRN Anxiety Ibuprofen 400 mg 10/28/22 18:53 Ibuprofen 400 Mg Tablet PO 10/28/23 18:52 Q6H PRN Pain Magnesium Hydroxide 30 ml 10/28/22 18:53 Magnesium Hydroxide Susp 30 Ml Udc PO 10/28/23 18:52 Q6H PRN Constipation Metoclopramide HCl 10 mg 10/29/22 09:47 10/29/22 09:59 Metoclopramide 10 Mg Tablet PO 10/29/23 09:46 10 mg Q6H PRN Administration Nausea Mirtazapine 15 mg 10/28/22 22:00 10/28/22 21:58 Mirtazapine 15 Mg Tablet PO 10/28/23 21:59 15 mg HS TODD Administration Olanzapine 5 mg 10/28/22 18:53 Olanzapine 10 Mg Vial *Nf* IM 10/28/23 18:52 Q6H PRN Agitation Olanzapine 5 mg 10/28/22 18:53 Olanzapine 5 Mg Tablet PO 10/28/23 18:52 Q6H PRN Agitation Ondansetron HCl 4 mg 10/28/22 20:50 10/28/22 21:58 Ondansetron Odt 4 Mg Tab.Rapdis PO 10/28/23 20:49 4 mg TID PRN Administration Nausea Paliperidone 3 mg 10/28/22 21:00 10/29/22 09:34 Paliperidone 24hr Er 3 Mg Tab.Er.24 PO 10/28/23 20:59 3 mg BID TODD Administration Paliperidone Palmitate 156 mg 11/11/22 09:00 Paliperidone Palmitate 156 Mg/Ml Syringe IM 11/11/23 08:59 Q28D TODD Sodium Chloride 0 ml 10/28/22 14:48 Sodium Chloride 0.9 % 10 Ml Syringe IV-PUSH 10/28/23 14:47 PRN PRN Flush Sterile Water 2.1 ml 10/28/22 18:53 Water For Injection,Sterile 10 Ml Vial INJECTION 10/28/23 18:52 PRN PRN To dilute OLANZapine (ZyPREXA) Tizanidine HCl 4 mg 10/28/22 22:00 10/28/22 21:58 Tizanidine 4 Mg Tablet PO 10/28/23 21:59 4 mg QHS TODD Administration Trazodone HCl 50 mg 10/28/22 18:53 Trazodone 50 Mg Tablet PO 10/28/23 18:52 QHS PRN Insomnia Trazodone HCl 75 mg 10/28/22 20:47 10/28/22 21:58 Trazodone 50 Mg Tablet PO 10/28/23 20:46 75 mg QHS PRN Administration Insomnia Venlafaxine HCl 150 mg 10/29/22 09:00 10/29/22 09:34 Venlafaxine Er 150 Mg Cap.Er.24h PO 10/29/23 08:59 150 mg DAILY TODD Administration Exam Physical Exam Vital Signs: Temp Pulse Resp BP Pulse Ox O2 Del Method 97.9 F 60 16 108/66 96 Room Air 10/29/22 07:30 10/29/22 14:33 10/29/22 14:33 10/29/22 14:33 10/29/22 14:33 10/29/22 14:33 Narrative: CONST- alert, in bed, no acute distress HEAD- normocephalic and atraumatic EENT- sclera nonicteric and conjunctiva nonerythemic, moist oral mucosa, pharynxclear NECK- supple, no cervical lymphadenopathy CARDIAC- RRR no abnormal heart tones PULM- diminished without wheeze or rhonchi, RA, no accessory muscle use or coughnoted ABD- S/NT, NABS, obese EXTREM- no edema BLE, calves nontender SKIN- W/D, good turgor MS- MAEx4 spontaneously with equal strength NEURO- A&Ox3, speech clear and tongue midline, equal facial symmetry PSYCH-mood and behavior appropriate Results Lab Results Labs: Laboratory Results - last 72 hr 10/29/22 06:13: Triglycerides 92, Cholesterol 181, LDL Cholesterol, Calc 99, VLDL Cholesterol 18, HDL Cholesterol 64, Cholesterol/HDL Ratio 2.8, 25-OH Vitamin D Total 26.3 L, TSH 3rd Generation 0.60 10/28/22 16:00: Ethyl Alcohol < 10, % Ethyl Alcohol TNP 10/28/22 16:00: PHA Creatinine Clear 136.41, Sodium 141, Potassium 3.8, [id number] H, Carbon Dioxide 24.6, Anion Gap 11.2, BUN 15, Creatinine 0.70, Est GFR (CKD- EPI) > 60.0, Glucose 91, Calcium 8.5 L, Total Bilirubin 0.5, AST 15, ALT 11, Alkaline Phosphatase 74, Total Protein 6.1 L, Albumin 3.7, Globulin 2.4, Albumin/Globulin Ratio 1.5 10/28/22 16:00: Corrected WBC 6.1, Uncorrected WBC Count 6.1, RBC 3.74, Hgb 12.1, Hct 36.0, MCV 96.1, MCH 32.4, MCHC 33.7, RDW 13.0, Plt Count 177, MPV 7.5,Neut % (Auto) 69.0, Lymph % (Auto) 19.9, [place] % (Auto) 6.5, Eos % (Auto) 3.9, Baso % (Auto) 0.7, Nucleat RBC Rel Count 0.2, Neut # (Auto) 4.2, Lymph # (Auto) 1.2, [place] # (Auto) 0.4, Eos # (Auto) 0.2, Baso # (Auto) 0.0, Monocyte Dist Width17.88 10/28/22 15:13: Urine Color Dark yellow A, Urine Appearance Clear, Urine pH 6.0,Ur Specific [place] 1.024, Urine Protein Negative, Urine Glucose (UA) Normal, Urine Ketones Trace H, Urine Occult Blood Negative, Urine Nitrite Negative, Urine Bilirubin Negative, Urine Urobilinogen >=2 H, Ur Leukocyte Esterase 3+ H, Urine RBC 1-2, Urine WBC 10-19 H, Ur Squamous Epith Cells 5-9 H, Urine Bacteria None seen, Hyaline Casts 0-8, Urine HCG, Qual Negative 10/28/22 15:13: Urine Opiates Screen Negative, Ur Barbiturates Screen Negative, Ur Phencyclidine Scrn Negative, Ur Amphetamines Screen Negative, U Benzodiazepines Scrn Negative, Urine Cocaine Screen Negative, U Marijuana (THC) Screen Negative Microbiology Results Micro: 10/28/22 15:13 Urine Culture - Preliminary Urine - Clean-Voided Midstream <9,000 colonies/ml mixed bacterial skin contaminants 1 Day Assessment & Plan Assessment/Plan (1) Nausea & vomiting: (2) Gastroparesis: Plan Gastroparesis Nausea/vomiting History of Elaine en y for gastroparesis 2019 -Patient follows with [facility] GI services on outpatient basis and has upcoming appointment scheduled for this chronic condition -Add metoclopramide, continue ondansetron -Labs reviewed with normal renal function and no electrolyte derangements, no leukocytosis -will reach out to Dr Boston Mckenzie/ surgeon who performed Elaine en y surgery in 2019 for further recommendations and to expedite follow up appointment -labs in AM to check electrolyte/ renal/ hepatic -note patient is 2 months ago Chronic conditions 1. Chronic back pain?tizanidine Schizoaffective disorder -Further plan of care per inpatient psychiatric team for psychoactive medicationmanagement/adjustment in psych with therapy I personally saw this patient on the day of the encounter, reviewed the history,performed the edward elements of the exam, formulated the plan of care and confirmed the Nurse Practitioner's assessment and plan. - Rosendo Holland DO Documented By: LI Coleman 3 [id number] Signed By: <Electronically signed by LI Hines> 10/29/22 1921 <Electronically signed by Rosendo Holland DO> 10/30/22 1342 [facility] Work Phone: 1(561) 718-409205-11-2023 Progress note Author Nimesh regalado [facility] 2022 11:53am Note Date/Time 2022 9:52a m [facility] [address] [place] [address] Psychiatry Progress Note Signed Patient: Maricarmen Anderson MR#: [id number] : 1980 Acct:[id number] Age/Sex: 42 / F Adm Date: 3 Loc: 1S Room: [address] [place] [address] Type : ADM IN Attending Dr: Toribio Cerda MD Copies to: ~ Date of Service: 2022 Subjective Subjective Narrative: Ms. Anderson was seen and evaluated at bedside this morning. She was seen by the hospitalist yesterday for recurrent nausea and vomiting. Her labs were unremarkable and they recommended starting the patient on metoclopramide and continuing Zofran. Patient was personally seen by me on the day of the encounter.? I reviewed the history and performed the edward elements of the assessment.? I formulated the planof care and confirmed this with the medical student as noted below The patient states her appetite is a little better and was able to eat some yesterday. However, she was still experiencing some nausea and vomiting. She does reports an improvement in her auditory hallucinations but states she still hearing unfamiliar voices telling her to harm herself. She denies difficulties with sleep, suicidality, or homicidality. She wants to continue same meds. Mental Status Exam: Appearance: grossly normal Mental Status: mental status grossly normal Mood: dysthymic mood Affect: dysphoric affect Speech and Movement: speech and movement normal and speech clear Attitude: cooperative Thought Process: normal Thought Content: Reports improved auditory hallucinations, no homicidality or suicidality Insight: fair Judgment: fair Exam Physical Exam Vital Signs: Temp Pulse Resp BP Pulse Ox O2 Del Method 98.5 F 60 16 108/64 95 Room Air 10/30/22 07:30 10/30/22 07:30 10/30/22 07:30 10/30/22 07:30 10/30/22 07:30 10/30/22 07:30 Objective Labs Labs: Abnormal Labs 10/30/22 06:17 Chloride 108 H Total Protein 5.6 L Albumin 3.4 L Assessment/Plan Assessment/Plan (1) Schizoaffective disorder: Code(s): F25.9 - Schizoaffective disorder, unspecified Status: Acute (2) Auditory hallucinations: Code(s): R44.0 - Auditory hallucinations Status: Acute (3) Nausea & vomiting: Code(s): R11.2 - Nausea with vomiting, unspecified Status: Acute Plan Patient presented with worsening of underlying schizoaffective disorder with auditory hallucinations due to being unable to take medications. Auditory hallucinations have improved. Continue with current medications since patient has demonstrated some improvement. Will be able to determine if the appropriate dose and adjust accordingly once patients recurrent nausea and vomiting improves. Hospitalists was consulted for recurrent nausea and vomiting. Continue with metoclopramide and Zofran per hospitalists recommendation Encourage participation in group therapy and medication compliance Continue to monitor mental status Documented By: Nimesh Cerda MD 3 [id number] Signed By: <Electronically signed by Nimesh Cerda MD> 10/30/[address] [place] [address] Work Phone: [phone]) 353-196605-10-2023 History and physical note Author Nimesh regalado [facility] October 29, 2022 11:26am Note Date/Time October 29, 2022 10:39 am [facility] [address] [place] [address] Psychiatry H&P Signed Patient: Maricarmen Anderson MR#: [id number] : 1980 Acct:[id number] Age/Sex: 41 / F Adm Date: 3 Loc: Room: [address] [place] [address] Type: ADM IN Attending Dr: Toribio Cerda MD Copies to: MD Viktor Goldsmith MD~ Date of Service: 10/29/2022 HPI History of Present Illness History of present illness: Ms. Anderson is a 41 year old female who presents with worsening of underlying schizoaffective disorder with auditory hallucinations due to being unable to take medications. The patient states she has gastroparesis and vomits up anything she eats including her medications. Patient was personally seen by me on the day of the encounter.? I reviewed the history and performed the deward elements of the assessment.? I formulated the planof care and confirmed this with the medical student as noted below Patient stated that she has not been able to take the medicine due to persistentvomiting. She said meds do work and wants to keep same med regimen. I inquired about polypharmacy and she said she wants to address vomiting first. She has a history of gastroparesis. Her last bowel movement was yesterday and she states that she has not eaten in 2 weeks. Workup in the ER was unremarkable in regards to her recurrent vomiting but she was diagnosed previously with a UTI and given Macrobid. She states that the voices are unfamiliar to her and that they are telling her to kill herself. She denies current suicidal or homicidal ideations. Past psych history: Schizoaffective Past hospitalizations: Last year due to severe hallucinations Past suicide attempts: Twice in 2021 via overdose Family psych history: Reports her father is bipolar Previous medications: Effexor, Trazodone, Remeron, Invega, and Abilify. States medications work effectively but unable to take them due to recurrent vomiting Alcohol and drug use: Denies. Living: With her 16 year old and 3 month old children Employment: Disabled Relationships: States that she has good emotional support from friends and family. Review of symptoms: Constitutional: Denies chills and Denies fever(s) Eyes: Denies change in vision ENT: Denies abnormal hearing Cardiovascular: Denies chest pain Respiratory: Denies chest congestion and Denies cough Gastrointestinal: Reports recurrent vomiting and Denies change in bowel habits Genitourinary: Denies dysuria Musculoskeletal: Denies atrophy and Denies myalgias Integumentary/Breasts: Denies dry skin Neurologic: Denies abnormal gait and Denies abnormal movements Psychiatric: Denies depression, suicidal ideation, homicidal ideations, or hallucinations Physical exam: Const: cooperative Nutritional Appearance: average body habitus Orientation: alert, awake and oriented x3 HEENT: Head normal to inspection, hearing grossly normal bilaterally, external nose normal, face symmetric Eyes: appearance normal, both eyes and all related structures, sclerae normal Neck: normal visual inspection and full ROM Resp: normal respiratory effort, able to speak in complete sentences and symmetric chest movement Cardio: regular rate GI: normal to inspection and non-distended : deferred Skin: no rashes or lesions noted Neuro: CNI: Normal olfaction CNI: normal olfaction CNII: Visual maria intact, CNIII,IV,: EOM intact, no nystagmus. Pupils equal, round, reactive to light and accommodation, CNV: Sensation intact to light touch, ? CNVII: Raises eyebrows, smile/frown, puff out cheeks symmetrically, CNVIII: Hearing intact bilaterally, CNIX,X: Voice normal, soft palate elevation normal, symmetrical, CNXI: Shoulder shrug strong, equal bilaterally, CNXII: Tongue protrusion midline, movement symmetrical. Extrem: normal to inspection and full ROM Mental Status Exam: Appearance: grossly normal Mental Status: mental status grossly normal Mood: dysthymic mood Affect: dysphoric affect Speech and Movement: speech and movement normal and speech clear Attitude: cooperative Thought Process: normal Thought Content: Reports auditory hallucinations, no homicidality but reports suicidality Insight: fair Judgment: fair PMFSH Vaccinated for COVID-19?: No Medical History (Updated 10/29/22 @ 10:35 by [employer] [place]) Anemia Bipolar disorder Chiari malformation type I Gastroparesis s/p gastrectomy GERD (gastroesophageal reflux disease) History of induced hypertension Myasthenia gravis Pacemaker Port-A-Cath in place Schizoaffective disorder Schizophrenia Status post placement of implantable loop recorder REMOVED Surgical History History of appendectomy History of cholecystectomy History of gastric surgery Family History Father ALS (amyotrophic lateral sclerosis) Heart disease Mother Diabetes Social History Smoking Status: Never smoker Substance Use Type: None Meds Medications and Allergies Allergies hydromorphone [From Dilaudid] Adverse Reaction (Verified 10/28/22 18:34) Itching Home Medications mirtazapine 15 mg tablet (Remeron) 15 mg PO HS 12/09/21 [History Confirmed 10/28/22] trazodone 50 mg tablet 75 mg PO QHS PRN Insomnia 07/02/22 [History Confirmed 10/28/22] venlafaxine 150 mg capsule,extended release 24 hr (Effexor XR) 150 mg PO DAILY 07/02/22 [History Confirmed 10/28/22] aripiprazole 30 mg tablet 30 mg PO DAILY 09/03/22 [History Confirmed 10/28/22] paliperidone 3 mg tablet,extended release 24 hr 3 mg PO BID 15 days #30 tabs 09/07/22 [Rx Confirmed 10/28/22] paliperidone palmitate 156 mg/mL intramuscular syringe (Invega Sustenna) 156 mg IM Q28D 30 days #1 mL 09/07/22 [Rx Confirmed 10/28/22] ondansetron 4 mg disintegrating tablet 4 mg PO TID PRN Nausea 10/28/22 [History Confirmed 10/28/22] tizanidine 4 mg tablet (Zanaflex) 5 mg PO QHS 10/28/22 [History Confirmed 10/28/22] Exam Physical Exam Vital Signs: Temp Pulse Resp BP Pulse Ox O2 Del Method 97.9 F 63 16 92/56 L 96 Room Air 10/29/22 07:30 10/29/22 07:30 10/29/22 07:30 10/29/22 07:30 10/29/22 07:30 10/29/22 07:30 Results Labs 10/28/22 16:00 10/28/22 16:00 Psychiatry Labs: 10/28/22 10/28/22 10/28/22 15:13 16:00 16:00 RBC 3.74 Hgb 12.1 Hct 36.0 MCV 96.1 MCH 32.4 MCHC 33.7 RDW 13.0 Plt Count 177 MPV 7.5 Sodium 141 Potassium 3.8 Chloride 109 H Carbon Dioxide 24.6 Anion Gap 11.2 BUN 15 Creatinine 0.70 Calcium 8.5 L Total Bilirubin 0.5 AST 15 ALT 11 Alkaline Phosphatase 74 Total Protein 6.1 L Albumin 3.7 Urine Color Dark yellow A Urine Appearance Clear Urine pH 6.0 Ur Specific [place] 1.024 Urine Protein Negative Urine Glucose (UA) Normal Urine Ketones Trace H Urine Occult Blood Negative Urine Nitrite Negative Ur Leukocyte Esterase 3+ H Urine RBC 1-2 Urine WBC 10-19 H Assessment/Plan (1) Schizoaffective disorder: Code(s): F25.9 - Schizoaffective disorder, unspecified Status: Acute (2) Nausea & vomiting: Code(s): R11.2 - Nausea with vomiting, unspecified Status: Acute Plan Patient presents with worsening of underlying schizoaffective disorder with auditory hallucinations due to being unable to take medications. Consult Hospitalists for further workup of recurrent vomiting and how to manage. Continue to attempt to administer home medications since effective when taken. Encourage participation in group therapy and medication compliance Continue to monitor mental status Documented By: Nimesh Cerda MD 3 [id number] Signed By: <Electronically signed by Nimesh Cerda MD> 10/29/22 [address] [facility] Work Phone: [phone]) 946-791402-11-2023 Consult note Author William Leyva [facility] August 02, 2022 10:49am Note Date/Time August 02, 2022 10:49am [facility] [address] [place] [address] Neurology Consult Note Signed Patient: Maricarmen Anderson MR#: [id number] : 1980 Acct:[id number] Age/Sex: 41 / F Adm Date: 3 Loc: Room: [address] [place] [address] Type: ADM IN Attending Dr: Dustin Cody MD Copies to: DO Viktor Chambers MD Penola Jones, MD-NOMS~ HPI Consult Date: 08/02/22 Information Systems Coordinator: William Leyva DO [facility] Vaccinated for COVID-19?: No Medical History Anemia Bipolar disorder Chiari malformation type I Gastroparesis s/p gastrectomy GERD (gastroesophageal reflux disease) History of induced hypertension Myasthenia gravis Pacemaker Port-A-Cath in place Schizophrenia Status post placement of implantable loop recorder REMOVED Surgical History History of appendectomy History of cholecystectomy History of gastric surgery Family History Father ALS (amyotrophic lateral sclerosis) Heart disease Mother No problems noted. Mother Diabetes Social History Smoking Status: Never smoker Substance Use Type: None Meds Medications and Allergies Allergies hydromorphone [From Dilaudid] Adverse Reaction (Verified 07/15/22 10:54) Itching Home Medications mirtazapine 15 mg tablet 15 mg PO HS 12/09/21 [History Confirmed 07/15/22] ondansetron 4 mg disintegrating tablet 4 mg PO Q4HR PRN Nausea And Vomiting #30 tabs 12/11/21 [Rx Confirmed 07/15/22] vits no.130-ferrous fum 27 mg iron-folic acid 800 mcg tablet ( Vitamin) 1 tab PO DAILY #30 tabs 12/11/21 [Rx Confirmed 07/15/22] promethazine 25 mg tablet 25 mg PO QID PRN nausea and vomiting #14 tabs 01/20/22[Rx Confirmed 07/15/22] ferrous sulfate 325 mg (65 mg iron) tablet (iron) 325 mg PO DAILY 06/25/22 [History Confirmed 07/15/22] trazodone 50 mg tablet 50 mg PO QHS PRN Insomnia 07/02/22 [History Confirmed 07/15/22] venlafaxine 150 mg capsule,extended release 24 hr 150 mg PO DAILY 07/02/22 [History Confirmed 07/15/22] aripiprazole 20 mg tablet 20 mg PO DAILY 08/02/22 [History] cephalexin 500 mg capsule 500 mg PO Q6H 7 days #28 caps 08/02/22 [Rx] Exam Physical Exam Vital Signs: Temp Pulse Resp BP Pulse Ox O2 Del Method 97.2 F L 82 18 135/88 94 L Room Air 08/02/22 10:30 08/02/22 10:04 08/02/22 10:00 08/02/22 10:04 08/02/22 08:36 08/02/22 10:00 Results Laboratory Findings 08/02/22 08:22 08/02/22 08:22 Assessment/Plan (1) Chiari malformation type I: Assessment/Problem Details: CONSULT REASON: Stat consult for Chiari malformation, impending delivery HPI: 41-year-old woman. History of Chiari malformation and history of a cardiac arrhythmia that required pacemaker implantation. Also with some psychiatric history, and recently hospitalized in the inpatient psychiatric unit for suicidal ideation. This will be her second child. First child in 2006, delivery uneventful and she said it required minimal straining. Currently 37 weeks along and presenting with contractions that were initially regular but have become irregular and less frequent. Cervical dilation 3 cm. Some borderline blood pressures initially and no proteinuria. Her headaches have actually been surprisingly a nonissue during this , which she has been very pleased about. I have evaluated her a few times with severe intractable headaches. She has a Chiari malformation with significant foramen magnum crowding to the extent that lumbar puncture could not be safely performed due to downward herniation risk, and there has been the ongoing presumption that she could have increased intracranial contributes to headaches, either because of the Chiari malformation blocking CSF outflow or because of idiopathic intracranial hypertension. Previous MRI imaging showed some soft signs of increased intracranial pressure. She has been relatively recently evaluated by optometry or ophthalmology with related retinal examination and there was no concern for any optic disc edema. EXAMINATION: Well-kempt. No distress. No deformities or trauma. Normal spinal curvature. Limbs seem well-perfused. No significant edema. Normal work of breathing. Visualized skin is generally intact and without lesions. Surgical scar on left knee. Affect normal. Patient is alert and generally oriented. Attention normal. Speech is fluent and nondysarthric. Pupils are equal and reactive. Retinal examination appears normal, no evidence of optic disc edema bilaterally. Ocular motility is full. No nystagmus. Facial sensation is normal. Hearing is normal. Facial strength is normal. Tongue is midline. Muscle bulk, tone, and strength are normal. No tremors. Reflexes normal throughout. No pathologic reflexes. Light touch is normal. Vibratory sensation is normal. Normal rapidly alternating movements. No limb dysmetria with [id number] testing. DATA REVIEW: CT head from December 13, 2020 personally reviewed and axially shows a crowded foramen magnum with bilateral cerebellar lingula visible in the foramen magnum. MRI brain February 19, 2020 personally reviewed and shows 6 to 7 mm of bilateral cerebellar tonsillar protrusion through the foramen magnum. MRI cervical spine from November 13, 2020 at [facility] report reviewed and showed 6 to 7 mm of bilateral cerebellar tonsillar protrusion through the foramen magnum and no evidence of any syrinx. ASSESSMENT: 41-year-old woman, 37 weeks into , present with contractions and possibly with impending delivery. I presume that her Chiari malformation is stable at 6 to 7 mm of cerebellar tonsillar protrusion. It was at least stable from 2019 to 2020 but she has not gotten any follow-up imaging after that. CT of the head would be of limited information and would be unnecessary radiation exposure to mom and fetus. Cannot have any immediate MRI here because of the presence of a MR conditional pacemaker (not compatible with our 3 Naomie magnet and she gets her imaging at [facility]). I also presume that she is without CSF outflow obstruction or increased intracranial pressure given that her headaches have been very well controlled and that she had recent ophthalmology evaluation of her retinas and they again appear normal to me today - no optic disc edema. PLAN: Based on my above assessment and the literature review, I think it should be safe for her to undergo assisted vaginal delivery under neuraxial blockade. Heather GARFIELD, Kapil DURAND, Ashley GORDON, Ej S, Harry G, Shanique AM. Management and outcomes of women with Chiari malformations: A 14 years retrospective case series. Eur J Obstet Gynecol Reprod Biol. 2018 Apr;230:1-5. doi: 10.1016/j.ejogrb.2018.09.006. Epub 2017Mar 01. PMID: [id number]. Alejandro R, Maribel R, Vahid Y, Casey BC, Nura R, Anusha R, Gavin PATINO, González EM. Chiari I malformation and : a comprehensive review of the literature to address common questions and to guide management. Acta Neurochir ([place]). 2019;162(7):0528-4628. doi: 10.1007/d41745-574-26640-0. Epub 2019Oct 07. PMID: [id number]. Code(s): G93.5 - Compression of brain Status: Acute Documented By: William Leyva DO 08/02/22 1032 Signed By: <Electronically signed by Willaim Leyva DO> 08/02/22 2109 [facility] Work Phone: 1(991) 914-912601-26-2023 Discharge summary Author Eduardo Swain [facility] July 17, 2022 12:17pm Note Date/Time July 17, 2022 1 2:16pm [facility] [address] [place] [address] Discharge Summary Signed Patient: Maricarmen Anderson MR#: [id number] : 1980 Acct:[id number] Age/Sex: 41 / F Adm Date: 3 Loc: Room: 6T6308-[address]: Eduardo Swain MD Copies to: MD Viktor Duncan MD~ Providers Date of Discharge: 07/17/22 Discharging Provider: Eduardo Swain Primary Care Provider: Viktor Sotelo Consults: 07/15/22 13:18 Consult to Case Management Routine Consult to Sleep Lab Routine Discharge Diagnosis (1) Schizoaffective disorder: Final Diagnosis Final Discharge Diagnosis: Schizoaffective disorder Summary Hospital Course Hospital course: According to admission note: Ms. Anderson is a 41 year old female who presented due to concern for hallucinations and paranoia.? She reported that some of them are command in nature telling her to kill herself.? She stated that she was seeing her outpatient psychiatrist today and voiced those are not hallucinations.? She stated that the symptoms have been worsening over the past couple days but have been ongoing for the past few weeks.? She reported that they are telling her to kill herself in a very loud.? She denied any suicidal thoughts at this time.? She stated that she has been on Abilify for roughly 1 year and overall it has been helping.? She stated that she has been eating okay and sleep has been okay as well. Past psych history: Major depressive disorder with psychotic features Past hospitalizations: History of past psychiatric hospitalizations Past suicide attempts: yes-reports Tylenol overdose, overdose on sleeping pills Family psych history: father-bipolar disorder, aunt-placed in fdc for much of life d/t behavioral problems with underlying psychiatric condition Home medications: Effexor, Abilify, Trazodone, Vistaril Alcohol and drug use: Denies use of alcohol, recreational drugs, tobacco. Living: lives at home with 14-year-old son Employment: Living [employer] in [place] Patient was restarted on her home medications. She tolerated the medications without any problems and did not report any side effects. Abilify was increasedfrom 15 mg to 20 mg. Her hallucinations gradually improved. She did not appearto be internally stimulated during her hospitalization. She did complain of some sleep issues due to the hallucinations that she was experiencing. On 7 hersleep improved and she was able to get a good nights rest. She did not report any side effects from her current medications and felt that they are helping with the hallucinations and paranoia that she was experiencing. She did not express any thoughts of wanting to harm her child during her hospitalization. She was future oriented and looking forward to the ultrasound and her baby shower over the weekend. She did not exhibit any behavior concerning for suicidality during hospital course. She did not have any conflict with peers chikistawaldemar. She attended groups and socialize with peers appropriately. On the day of discharge, she denied any depression or suicidality. She reported that her auditory hallucinations are under adequate control. She expressed interest in returning home and following up with outpatient services. She stated that she had good support from family at home and felt comfortable with the plan. Condition Condition at Discharge: Stable Status at Discharge Cognitive/behavioral status at discharge: Mental Status Exam: Appearance: grossly normal Mental Status: mental status grossly normal Mood: Euthymic mood Affect: Normal affect Speech and Movement: speech and movement normal and speech clear Attitude: cooperative Thought Process: normal Thought Content: Denied hallucinations, no homicidality and no suicidality Insight: Good Judgment: Good Functional status at discharge: independent ambulation Overall status at discharge: patient is back to baseline Time Spent with Patient Time spent providing/coordinating discharge services (# min): 30 Exam Physical Exam Vital Signs: Temp Pulse Resp BP Pulse Ox O2 Del Method 97.9 F 89 16 133/71 95 Room Air 07/17/22 07:30 07/17/22 07:30 07/17/22 07:30 07/17/22 07:30 07/17/22 07:30 07/17/22 09:00 Discharge Plan Discharge Plan Patient Disposition: Home Activity: No Activity Restriction Diet: Regular Additional Instructions: Regular diet No activity restrictions Instructions: Depression, [facility] [place] Instructions Prescriptions: New aripiprazole 20 mg Tablet 20 mg PO DAILY 30 Days Qty: 30 0RF Continued promethazine 25 mg tablet 25 mg PO QID PRN (Reason: nausea and vomiting) Qty: 14 0RF mirtazapine 15 mg tablet 15 mg PO HS Patient Comments: TAKE 1 TABLET BY MOUTH EVERYDAY AT BEDTIME Vitamin 27 mg iron- 800 mcg Tablet 1 tab PO DAILY Qty: 30 0RF ondansetron 4 mg Tablet,Disintegrating 4 mg PO Q4HR PRN (Reason: Nausea And Vomiting) Qty: 30 0RF venlafaxine 150 mg capsule,extended release 24hr 150 mg PO DAILY Patient Comments: TAKE 1 CAPSULE BY MOUTH EVERY DAY trazodone 50 mg tablet 75 mg PO QHS PRN (Reason: Insomnia) ferrous sulfate [iron] 325 mg (65 mg iron) Tablet 325 mg PO DAILY Discontinued aripiprazole 15 mg Tablet 15 mg PO DAILY 30 Days Qty: 30 0RF Follow Up: [facility] [Outside] [facility] [Outside] Documented By: Eduardo Swain MD 07/17/221213 Signed By: <Electronically signed by Eduardo Swain MD> 07/17/227 [facility] Work Phone: 1(202) 623-799001-25-2023 Progress note Author Eduardo Swain [facility] July 16, 2022 12:37pm Note Date/Time July 16, 2022 1 2:37pm [facility] [address] [place] [address] Psychiatry Progress Note Signed Patient: Maricarmen Anderson MR#: [id number] : 1980 Acct:[id number] Age/Sex: 41 / F Adm Date: 3 Loc: Room: [address] [place] [address] Type : ADM IN Attending Dr: Eduardo Swain MD Copies to: ~ Date of Service: 07/16/2022 Subjective Subjective Narrative: Ms. Anderson reported that she is doing good. She does report only sleeping 4 hours due to hallucinations and paranoid thoughts. She tolerated the increased dose of Abilify. Her appetite has been good. Mental Status Exam: Appearance: grossly normal Mental Status: mental status grossly normal Mood: dysthymic mood Affect: dysphoric affect Speech and Movement: speech and movement normal and speech clear Attitude: cooperative Thought Process: normal Thought Content: reported auditory hallucinations, no homicidality, no suicidality Insight: fair Judgment: fair Exam Physical Exam Vital Signs: Temp Pulse Resp BP Pulse Ox O2 Del Method 97.9 F 121 H 18 128/88 97 Room Air 07/15/22 19:55 07/16/22 07:30 07/16/22 07:30 07/16/22 07:30 07/16/22 07:30 07/16/22 07:30 Assessment/Plan Assessment/Plan (1) Schizoaffective disorder: Code(s): F25.9 - Schizoaffective disorder, unspecified Status: Acute Plan Patient doing okay, but does report hallucinations and paranoia overnight that affected her sleep. Continue Remeron, trazodone and Effexor, Abilify to 20 mg Continue to monitor mental status Encourage group participation and medication compliance Risk benefits alternatives explained Documented By: Eduardo Swain MD 07/16/22 1236 Signed By: <Electronically signed by Eduardo Swain MD> 07/16/22 1237 [facility] Work Phone: 1(545) 309-914401-24-2023 History and physical note Author Eduardo Swain [facility] July 15, 2022 2:28pm Note Date/Time July 15, 2022 2 :28pm [facility] [address] [place] [address] Psychiatry H&P Signed Patient: Maricarmen Anderson MR#: [id number] : 1980 Acct:[id number] Age/Sex: 41 / F Adm Date: 3 Loc: Room: [address] [place] [address] Type: ADM IN Attending Dr: Eduardo Swain MD Copies to: MD Viktor Duncan MD~ Date of Service: 07/15/2022 HPI History of Present Illness History of present illness: Ms. Anderson is a 41 year old female who presented due to concern for hallucinations and paranoia. She reported that some of them are command in nature telling her to kill herself. She stated that she was seeing her outpatient psychiatrist today and voiced those are not hallucinations. She stated that the symptoms have been worsening over the past couple days but have been ongoing for the past few weeks. She reported that they are telling her to kill herself in a very loud. She denied any suicidal thoughts at this time. She stated that she has been on Abilify for roughly 1 year and overall it has been helping. She stated that she has been eating okay and sleep has been okay as well. Past psych history: Major depressive disorder with psychotic features Past hospitalizations: History of past psychiatric hospitalizations Past suicide attempts: yes-reports Tylenol overdose, overdose on sleeping pills Family psych history: father-bipolar disorder, aunt-placed in fdc for much of life d/t behavioral problems with underlying psychiatric condition Home medications: Effexor, Abilify, Trazodone, Vistaril Alcohol and drug use: Denies use of alcohol, recreational drugs, tobacco. Living: lives at home with 14-year-old son Employment: [employer] in [place] Review of symptoms: Constitutional: Denies chills and Denies fever(s) Eyes: Denies change in vision ENT: Denies abnormal hearing Cardiovascular: Denies chest pain Respiratory: Denies chest congestion and Denies cough Gastrointestinal: Denies change in bowel habits Genitourinary: Denies dysuria Musculoskeletal: Denies atrophy and Denies myalgias Integumentary/Breasts: Denies dry skin Neurologic: Denies abnormal gait and Denies abnormal movements Psychiatric: Reports command auditory hallucinations Physical exam: Const: cooperative Nutritional Appearance: average body habitus Orientation: alert, awake and oriented x3 HEENT: Head normal to inspection, hearing grossly normal bilaterally, external nose normal, face symmetric Eyes: appearance normal, both eyes and all related structures, sclerae normal Neck: normal visual inspection and full ROM Resp: normal respiratory effort, able to speak in complete sentences and symmetric chest movement Cardio: regular rate GI: normal to inspection and non-distended : deferred Skin: no rashes or lesions noted Neuro: CNII: Visual maria intact, CNIII,IV,: EOM intact, no nystagmus. Pupilsequal, round, reactive to light and accommodation, CNV: Sensation intact to light touch, CNVII: Raises eyebrows, smile/frown, puff out cheeks symmetrically, CNVIII: Hearing intact bilaterally, CNIX,X: Voice normal, soft palate elevation normal, symmetrical, CNXI: Shoulder shrug strong, equal bilaterally, CNXII: Tongue protrusion midline, movement symmetrical. Extrem: normal to inspection and full ROM Mental Status Exam: Appearance: grossly normal Mental Status: mental status grossly normal Mood: dysthymic mood Affect: dysphoric affect Speech and Movement: speech and movement normal and speech clear Attitude: cooperative Thought Process: normal Thought Content: reported auditory hallucinations, no homicidality, no suicidality Insight: fair Judgment: fair PMFSH Vaccinated for COVID-19?: No Medical History Anemia Bipolar disorder Chiari malformation type I Gastroparesis s/p gastrectomy GERD (gastroesophageal reflux disease) History of induced hypertension Myasthenia gravis Pacemaker Port-A-Cath in place Schizophrenia Status post placement of implantable loop recorder REMOVED Surgical History History of appendectomy History of cholecystectomy History of gastric surgery Family History Father ALS (amyotrophic lateral sclerosis) Heart disease Mother No problems noted. Mother Diabetes Social History Smoking Status: Never smoker Substance Use Type: None Meds Medications and Allergies Allergies hydromorphone [From Dilaudid] Adverse Reaction (Verified 07/15/22 10:54) Itching Home Medications mirtazapine 15 mg tablet 15 mg PO HS 12/09/21 [History Confirmed 07/15/22] aripiprazole 15 mg tablet 15 mg PO DAILY 30 days #30 tabs 12/11/21 [Rx Confirmed 07/15/22] ondansetron 4 mg disintegrating tablet 4 mg PO Q4HR PRN Nausea And Vomiting #30 tabs 12/11/21 [Rx Confirmed 07/15/22] vits no.130-ferrous fum 27 mg iron-folic acid 800 mcg tablet ( Vitamin) 1 tab PO DAILY #30 tabs 12/11/21 [Rx Confirmed 07/15/22] promethazine 25 mg tablet 25 mg PO QID PRN nausea and vomiting #14 tabs 01/20/22[Rx Confirmed 07/15/22] ferrous sulfate 325 mg (65 mg iron) tablet (iron) 325 mg PO DAILY 06/25/22 [History Confirmed 07/15/22] trazodone 50 mg tablet 75 mg PO QHS PRN Insomnia 07/02/22 [History Confirmed 07/15/22] venlafaxine 150 mg capsule,extended release 24 hr 150 mg PO DAILY 07/02/22 [History Confirmed 07/15/22] Exam Physical Exam Vital Signs: Temp Pulse Resp BP Pulse Ox O2 Del Method 97.9 F 79 16 174/98 H 100 Room Air 07/15/22 13:12 07/15/22 13:12 07/15/22 13:12 07/15/22 13:12 07/15/22 13:12 07/15/22 13:12 Results Labs 07/15/22 11:10 07/15/22 11:10 Psychiatry Labs: 07/15/22 07/15/22 07/15/22 11:00 11:10 11:10 RBC 3.57 L Hgb 11.3 L Hct 34.4 MCV 96.4 MCH 31.8 MCHC 33.0 RDW 18.8 H Plt Count 157 MPV 7.9 Sodium 135 L Potassium 3.6 Chloride 104 Carbon Dioxide 21.3 L Anion Gap 13.3 BUN 4 L Creatinine 0.66 Calcium 9.5 Total Bilirubin 0.6 AST 22 ALT 14 Alkaline Phosphatase 83 Total Protein 6.1 Albumin 2.9 L Urine Color Yellow Urine Appearance Cloudy A Urine pH 5.5 Ur Specific [place] 1.010 Urine Protein Negative Urine Glucose (UA) Normal Urine Ketones 2+ H Urine Occult Blood Negative Urine Nitrite Negative Ur Leukocyte Esterase 4+ H Urine RBC 0-1 Urine WBC 50-100 H Assessment/Plan (1) Schizoaffective disorder: Code(s): F25.9 - Schizoaffective disorder, unspecified Status: Acute Plan Patient presenting due to concern for paranoia and command auditory hallucinations along her to kill her self Will restart Remeron, trazodone and Effexor. Increase Abilify to 20 mg Continue to monitor mental status Encourage group participation and medication compliance Risk benefits alternatives explained Documented By: Eduardo Swain MD 07/15/221425 Signed By: <Electronically signed by Eduardo Swain MD> 07/15/22 1429 [facility] Work Phone: [phone]) 758-209107-07-2022 Miscellaneous Notes* Telephone Encounter - BYRON Richter - 12/26/2021 11:17 AM EDT If it hasn't worked then it's probably not going to. I'd hesitate to give anesthesia to place a newone with new if unnecessary. I would just sit tight. Dr Mullins Called patient and relayed above message. She currently is doing ok. Her concern is if she gets in a flare. She will call us if she starts to feel a flare starting. She is 6 weeks BYRON Richter * Telephone Encounter - BYRON Richter - 12/24/2021 9:11 AM EDT Called patient. Port hasn't worked in a couple of months. She is newly and thinks she will need the port. Dr Eng originally placed the port. BYRON Richter [facility] Miscellaneous Notes* Telephone Encounter - Kathi Waterman RN - 09/18/2021 11:01 AM EDT Called and spoke with patient. She states in the last 3-4 wks she has been having dehydration issues. She has been having nausea and vomiting a lot. Yesterday she woke up and felt her abdomen was swollen. The swelling went down to her legs. She went to the ER last night and blood clot was ruled out. She last saw Dr. Eng in 10/2020. She last saw Dr. Gibson in 08/2018. She states she will go to a [facility] ER because local ER doesn't know what to do with her. * Telephone Encounter - Uyen Dela Cruz - 09/18/2021 9:18 AM EDT patient calling in with complaint of abdominal pain, swelling abdomen, dehydration and vomiting. Patient has not seen you since October 2020. Patient has been identified by name and birthdate.Yes Duration of symptoms: few days Person calling: self Call patient at: at home [phone] (home) [phone] (cell) Was an appointment scheduled: No Closing statement: Symptom Call: Thank you for calling [facility], your call is very important. A nurse will call in approximately 2-4 hours during business hours. If this is an emergency, please contact 911. Uyen Dela Cruz documented in this [facility]08-[facility]-2021 History of Present illness [id number] you F with known Chiari malformation and suspected ideopathic intracranial hypertension presentsfor evaluation of neck pain, arm pain, and balance problems. She has been dealing with this for several years but it has worsening over the past few months. The pain radiated down from her neck to her back and down both arms.[id number] Work Phone: 1(642) 817-575806-08-2021 NoteHNO ID: [id number] Author: Emelia Baldwin MD Service: ? Author Type: Physician Type: Progress Notes Filed: 11/27/2020 1:36 PM Note Text: Seen via VV with permission Here for F/U of Chiari and imaging review CC: Ongoing neck pain Local Neurologist Dx pinched nerve in neck Also on new migraine medication Numbness in BUE arms and hands Symptoms not related to exertion, however bending over often leads to dizziness Sx also worse after long day at work No swallowing difficulty No tinnitus Poor balance and clumsiness MRI 2018 and 2020 reviewed and compared Unchanged 3-4 mm tonsillar descent However significant crowding at foramen magnum and small cisterna magna Cineflow shows adequate flow ventral and depressed flow dorsal AP WE discussed findings and I pointed out on imaging Sx are activity related but probably not severe enough to balance risk of surgical intervention at this She understands and agrees She will FU prn any worsening or in 1 year with CS MRI I spent 35 mins reviewing the chart and discussing the plan of care Emelia Baldwin, [facility]05-25-2021 NoteHNO ID: [id number] Author: RT Argentina(R) Service: Radiology Author Type: Sheet Metal Mechanic Type: Progress Notes Filed: 11/13/2020 3:15 PM Note Text: Radiology Service Progress Note PATIENT NAME: Maricarmen Anderson DATE OF SERVICE: November 13, 2020 TIME: 3:13 PM PATIENT IDENTITY VERIFICATION COMPLETED USING TWO (2) IDENTIFIERS: Name and Date of confirmed by patient verbally. FALL SCREENING: Has the patient had 2 falls in the last year or 1 fall with injury or currently using an Ambulatory Assistive Device (Walker, Cane, Wheelchair, Crutches, etc.)? No PATIENT GENDER DATA: Female. status: : No status: NO. PATIENT RELEVANT IMPLANT DATA REVIEWED: PM PEREZ ASSURITY 2272, 1.5T-3000 G/cm RADIOLOGY DEPARTMENT: MR; Exam(s) Completed: Body: Renal Spine: Cervical spine PERIPHERAL IV DATA: Left in for next appt SIGNED BY: MARTIN/ RT Argentina(R) November 13, 2020 3:13 [facility]05-25-2021 NoteHNO ID: [id number] Author: Yuni Parry RN Service: Nursing Author Type: Registered Nurse Type: Progress Notes Filed: 11/13/2020 1:15 PM Note Text: Radiology Service Progress Note DATE OF SERVICE: November 13, 2020 TIME: 1:07 PM PATIENT WEIGHT: 215LBS PATIENT IDENTITY VERIFICATION COMPLETED USING TWO (2) STANDARD IDENTIFIERS: Name and Date of confirmed by patient verbally and Name and Date of confirmed by identification band. FALL SCREENING: Has the patient had 2 falls in the last year or 1 fall with injury or currently using an Ambulatory Assistive Device (Walker, Cane, Wheelchair, Crutches, etc.)? No PATIENT GENDER DATA: Female. status: : No status: NO. ALLERGIES: Reviewed and unchanged CONTRAST ALLERGY: no EXAM: MRI - CONTRAST TYPE: GROUP II IV SITE: Ambulatory: A power injectable Mediport was accessed in the Right chest with a 1 inch 20 gauge needle. Blood Return, Flushed easily with normal saline, Good Blood Return Post Injection, Flushed with 20 cc saline followed by Heparin 500 units/5 cc and No Complications IV SITE APPEARANCE: Clean,Dry and Intact SIGNATURE: Yuni Parry RN PATIENT NAME: Maricarmen Anderson DATE: November 13, 2020 TIME: 1:07 [facility]05-25-2021 NoteHNO ID: [id number] Author: Dakota Moreno RN Service: Radiology Author Type: Registered Nurse Type: Progress Notes Filed: 11/13/2020 3:19 PM Note Text: Radiology Service Progress Note PATIENT NAME: Maricarmen Anderson DATE OF SERVICE: November 13, 2020 TIME: 3:18 PM PATIENT IDENTITY VERIFICATION COMPLETED USING TWO (2) STANDARD IDENTIFIERS: Name and Date of confirmed by patient verbally. PATIENT GENDER DATA: Female. status: : No status: NO. PATIENT RELEVANT IMPLANT DATA REVIEWED: Yes ALLERGIES: Reviewed and unchanged MEDICATIONS REVIEWED: NO PROCEDURE: MRI - Conditional Pacemaker IV SITE: see iv note PERIPHERAL IV ACCESS: Discontinued PATIENT TOLERATED PROCEDURE: Without incident. PATIENT DISCHARGED TO: Home/Self Care SIGNED BY: Dakota Moreno RN November 13, 2020 3:18 [facility]05-25-2021 NoteHNO ID: [id number] Author: RT Duarte(R) Service: Radiology Author Type: Sheet Metal Mechanic Type: Progress Notes Filed: 11/13/2020 10:28 AM Note Text: Radiology Service Progress Note PATIENT NAME: Maricarmen Anderson DATE OF SERVICE: November 13, 2020 TIME: 10:28 AM PATIENT IDENTITY VERIFICATION COMPLETED USING TWO (2) IDENTIFIERS: Name and Date of confirmed by patient verbally. FALL SCREENING: Has the patient had 2 falls in the last year or 1 fall with injury or currently using an Ambulatory Assistive Device (Walker, Cane, Wheelchair, Crutches, etc.)? No PATIENT GENDER DATA: Female. status: : No status: NO. PATIENT RELEVANT IMPLANT DATA REVIEWED: Not Applicable RADIOLOGY DEPARTMENT: General X-ray: Exam(s) Completed: Chest X-Ray PERIPHERAL IV DATA: Not applicable SIGNED BY: RT Duarte(R) November 13, 2020 10:28 [facility]05-23-2021 NoteHNO ID: [id number] Author: Vicente New MD Service: General Surgery Author Type: Physician Type: Progress Notes Filed: 11/12/2020 1:00 PM Note Text: PROGRESS NOTES - GENERAL SURGERY PATIENT NAME: Maricarmen Anderson SERVICE DATE: 11/11/2020 SERVICE TIME: 8:28 AM ASSESSMENT AND PLAN Left flank pain Gastroparesis GERD H/o gastric bypass Obesity Anemia Assessment: Blood cultures: 1 bottle with +MRSE this am, second bottle no growth to date. Repeat UA suggestive of UTI. Continued L flank pain. -Continue follow blood cultures -Consult ID for recs -Continue scheduled gabapentin and PRN pain regimen -Continue PRN anti-emtics -Okay for regular diet as tolerated -VTE ppx: lovenox SUBJECTIVE INTERVAL HISTORY OF PRESENT ILLNESS: Endorses continued left flank pain, about the same as yesterday. No fevers or chills overnight. MEDICATIONS: Current Facility-Administered Medications Medication Dose Route Frequency - promethazine 25 mg tab(s) (PHENERGAN) 25 mg ORAL q 6 H PRN - LORazepam 0.5 mg tab(s) (ATIVAN) 0.5 mg ORAL BID PRN - acetaZOLAMIDE 250 mg tab(s) (DIAMOX) 250 mg ORAL BID - tiZANidine 4 mg tab(s) (ZANAFLEX) 4 mg ORAL AT BEDTIME - enoxaparin 40 mg injection (LOVENOX) 40 mg SUBCUTANEOUS q 24 HR - sodium chloride 0.9 % (flush) 10 mL (BD POSIFLUSH) 10 mL INTRAVENOUS q 12 H - sodium chloride 0.9 % (flush) 20 mL (BD POSIFLUSH) 20 mL INTRAVENOUS PRN - heparin 100 unit/mL 500 Units injection 5 mL INTRAVENOUS PRN - acetaminophen 650 mg CUP (TYLENOL) 650 mg ORAL q 6 H - ondansetron (PF) 4 mg injection (ZOFRAN) 4 mg INTRAVENOUS q 6 H PRN - docusate 100 mg oral liquid (DIOCTO, COLACE) 100 mg ORAL BID PRN - gabapentin 300 mg oral liquid (NEURONTIN) 300 mg ORAL q 8 H - keTORolac 15 mg injection (TORADOL) 15 mg INTRAVENOUS q 6 H PRN OBJECTIVE PHYSICAL EXAM: BP 125/74 Pulse 62 Temp (Src) 97.7 (Oral) Resp 16 Ht 5' 5.984 (1.68m) Wt 215 lb (97.5kg) SpO2 100% LMP 09/13/2020 BMI 34.72 kg/(m2). O2 Therapy: Room Air Intake/Output Summary (Last 24 hours) at 11/11/2020 0828 Last data filed at 11/11/2020 0433 Gross per 24 hour Intake 620 ml Output 650 ml Net -30 ml GENERAL: Alert, no distress, cooperative LUNGS: Unlabored breathing on room air CARDIAC: RR ABDOMEN: Soft, obese, non-ttp. Left flank tender to light palpation and wraps around in distribution of L mid-axillary line. No rashes or bruises visible. No palpable fluid collections. No erythema. DATA: Diagnostic tests reviewed for today's visit: CBC, Coags, BMP, Mg, Phos Recent Labs 11/11/20 0645 11/10/20 0309 11/09/20 0854 WBC 4.41 4.26 4.95 HB 8.9* 8.6* 9.6* HCT 30.0* 29.0* 31.9* PLT 155 165 173 NA 143 143 140 K 3.8 3.9 3.6* CHLOR 115* 114* 110* CO2 19* 20* 21* BUN 20 16 17 CREAT 0.78 0.83 0.75 GLUC 89 93 91 CA 9.2 8.9 9.4 Liver Function, Amylase, AND Lipase Recent Labs 11/09/20 0854 TPROT 6.6 ALB 3.9 ALT 9 AST 16 ALKPHOS 56 TBILI 0.5 LIPASE 21 SIGNATURE: Lucero Wheeler DO Pager: [phone] DATE: 11/11/2020 TIME: 8:28 AM [facility] STAFF PHYSICIAN NOTE OF PERSONAL INVOLVEMENT IN CARE I have reviewed the progress note obtained and documented by the resident and I personally participated in the edward components. I have discussed the case and management of the patient's care. The following comments revise or confirm relevant edward components of their note. IMPRESSION: pain flank same but tolerated diet. One blood culture positive Nutrition note reviewed - no malnutrition identified at this time PLAN: ID consult SIGNATURE: Vicente New MD DATE of SERVICE: November 11, 2020 TIME of SERVICE: 6:19 [facility]05-22-2021 NoteHNO ID: [id number] Author: Vicente New MD Service: General Surgery Author Type: Physician Type: Progress Notes Filed: 11/10/2020 9:27 PM Note Text: PROGRESS NOTES - GENERAL SURGERY PATIENT NAME: Maricarmen Anderson SERVICE DATE: 11/10/2020 SERVICE TIME: 10:07 AM ASSESSMENT AND PLAN Left flank pain Gastroparesis GERD H/o gastric bypass Obesity Anemia Assessment: Blood cultures no growth <24 hrs. Thoracic and lumbar x-rays revealed multilevel disc space narrowing, no acute pathology. -Follow blood cultures -Repeat UA - specimen from ED was contaminated -Continue scheduled gabapentin and PRN pain regimen -Continue PRN anti-emtics -Okay for regular diet as tolerated -VTE ppx: lovenox SUBJECTIVE INTERVAL HISTORY OF PRESENT ILLNESS: Endorses continued left flank pain, about the same as yesterday. Nausea and retching. MEDICATIONS: Current Facility-Administered Medications Medication Dose Route Frequency - promethazine 25 mg tab(s) (PHENERGAN) 25 mg ORAL q 6 H PRN - LORazepam 0.5 mg tab(s) (ATIVAN) 0.5 mg ORAL BID PRN - acetaZOLAMIDE 250 mg tab(s) (DIAMOX) 250 mg ORAL BID - tiZANidine 4 mg tab(s) (ZANAFLEX) 4 mg ORAL AT BEDTIME - enoxaparin 40 mg injection (LOVENOX) 40 mg SUBCUTANEOUS q 24 HR - sodium chloride 0.9 % (flush) 10 mL (BD POSIFLUSH) 10 mL INTRAVENOUS q 12 H - sodium chloride 0.9 % (flush) 20 mL (BD POSIFLUSH) 20 mL INTRAVENOUS PRN - heparin 100 unit/mL 500 Units injection 5 mL INTRAVENOUS PRN - acetaminophen 650 mg CUP (TYLENOL) 650 mg ORAL q 6 H - ondansetron (PF) 4 mg injection (ZOFRAN) 4 mg INTRAVENOUS q 6 H PRN - docusate 100 mg oral liquid (DIOCTO, COLACE) 100 mg ORAL BID PRN - gabapentin 300 mg oral liquid (NEURONTIN) 300 mg ORAL q 8 H - keTORolac 15 mg injection (TORADOL) 15 mg INTRAVENOUS q 6 H PRN OBJECTIVE PHYSICAL EXAM: BP 100/53 Pulse 73 Temp (Src) 98.2 (Oral) Resp 16 Ht 5' 5.984 (1.68m) Wt 215 lb (97.5kg) SpO2 97% LMP 09/13/2020 BMI 34.72 kg/(m2). O2 Therapy: Room Air Intake/Output Summary (Last 24 hours) at 11/10/2020 1007 Last data filed at 11/09/2020 1800 Gross per 24 hour Intake 120 ml Output 50 ml Net 70 ml GENERAL: Alert, no distress, cooperative LUNGS: Unlabored breathing on room air CARDIAC: RR ABDOMEN: Soft, obese, non-ttp. Left flank tender to light palpation and wraps around in distribution of L mid-axillary line. No rashes or bruises visible. No palpable fluid collections. No erythema. DATA: Diagnostic tests reviewed for today's visit: CBC, Coags, BMP, Mg, Phos Recent Labs 11/10/20 0309 11/09/20 0854 WBC 4.26 4.95 HB 8.6* 9.6* HCT 29.0* 31.9* PLT 165 173 NA 143 140 K 3.9 3.6* CHLOR 114* 110* CO2 20* 21* BUN 16 17 CREAT 0.83 0.75 GLUC 93 91 CA 8.9 9.4 Liver Function, Amylase, AND Lipase Recent Labs 11/09/20 0854 TPROT 6.6 ALB 3.9 ALT 9 AST 16 ALKPHOS 56 TBILI 0.5 LIPASE 21 SIGNATURE: Lucero Wheeler DO Pager: [phone] DATE: 11/10/2020 TIME: 10:07 AM [facility] STAFF PHYSICIAN NOTE OF PERSONAL INVOLVEMENT IN CARE I have reviewed the progress note obtained and documented by the resident and I personally participated in the edward components. I have discussed the case and management of the patient's care. The following comments revise or confirm relevant edward components of their note. IMPRESSION: Tolerating diet, pain minimal PLAN: supportive treatment SIGNATURE: Vicente New MD DATE of SERVICE: November 10, 2020 TIME of SERVICE: 9:27 [facility]05-21-2021 NoteHNO ID: [id number] Author: Mechelle Connolly, KazD Service: Pharmacy Author Type: Pharmacist Type: Plan of Care Filed: 11/09/2020 1:40 PM Note Text: PHARMACY MEDICATION REVIEW Patient Name: Maricarmen Anderson : 1980 The following medications were updated within the [facility] medication list: Medications ADDED to [facility] medication list ? Abjovy 225/1.5 inj monthly Medications CHANGED on [facility] medication list ? Ativan 1mg po at bedtime Medications REMOVED from [facility] medication list ? NS 1000mL infusions ? Sertraline 200mg ? topiramate 25mg ? protonix liquid ? Lamotrigine 25mg ? Emgality Additional comments: N/A The below information represents the best possible medication history: Yes Medication history completed by: Pharmacist: Mechelle Connolly, KazD Source of history: Patient: Reliability of source: Appears reliable, clearly identified: Medication name, Medication dose, Medication frequency and Timing of last dose, Pharmacy records: fill history and OARRS Medication nonadherence identified: No barriers noted Reconciliation completed: No, patient not yet admitted. Patient interested in Bedside Delivery Services or using [facility] OP Pharmacy at discharge? Unable to assess Preferred outpatient pharmacy: [facility]- [facility]/pharmacy #[id number] [place] [address] [address] [facility] [phone] [place] [id number] Allergies: Dilaudid [Hydromorp* Itching Prior to Admission medications as of 11/09/20 1336 Medication Sig Last Dose Taking LORazepam (ATIVAN) 0.5 mg Take 1 mg by mouth daily at bedtime. 11/08/2020 at Unknown time Yes linaclotide (LINZESS) 145 mcg capsule Take 1 capsule by mouth once daily. 11/08/2020 at Unknown time Yes acetaZOLAMIDE (DIAMOX) 250 mg tablet Take 250 mg by mouth twice daily. 11/08/2020 at Unknown time Yes HYDROcodone-acetaminophen (NORCO) 5-325 mg per tablet Take 1 tablet by mouth every 8 hours as needed. Yes ubrogepant (UBRELVY) 100 mg tablet Take 100 mg by mouth as needed. Yes cholecalciferol (VITAMIN D3) 1,000 unit tab tablet Take 1,000 Units by mouth twice daily. 11/08/2020 at Unknown time Yes acetaminophen (TYLENOL) 500 mg/15 mL liqd Take 500 mg by mouth every 8 hours as needed. Yes ondansetron orally disintegrating (ZOFRAN ODT) 4 mg disintegrating tablet Take 1 tablet by mouth every 4 hours as needed for Nausea/Vomiting. Yes promethazine (PHENERGAN) 25 mg tablet Take 25 mg by mouth every 6 hours as needed. Yes tiZANidine (ZANAFLEX) 4 mg tablet Take 4 mg by mouth daily at bedtime. Yes promethazine (PHENERGAN) 25 mg suppository 1 Suppository by RECTAL route every 6 hours as needed. Yes Mechelle Connolly, PharmD 11/09/2020[facility]05-19-2021 NoteHNO ID: [id number] Author: Clemente Eng MD Service: ? Author Type: Physician Type: Progress Notes Filed: 11/07/2020 4:52 PM Note Text: Established VIRTUAL CONSULT NAME: Maricarmen Anderson [facility] NO: [id number] DATE OF SERVICE: November 07,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 procedure) ORAL DIRECTED PRN - acetaminophen 650 mg CUP (TYLENOL) 650 mg ORAL/FEEDING TUBE q 6 H - ondansetron (PF) 4 mg injection (ZOFRAN) 4 mg INTRAVENOUS q 6 H PRN OBJECTIVE PHYSICAL EXAM: BP 129/57 Pulse 60 Temp (Src) 98.1 (Oral) Resp 20 Ht 5' 6 (1.68m) Wt 220 lb (99.8kg) SpO2 92% [facility] 05/18/2020 BMI 35.53 kg/(m2). O2 Therapy: Room Air No intake or output data in the 24 hours ending 05/27/20 0655 GENERAL: Alert, no distress, cooperative LUNGS: No respiratory distress, bilateral chest rise CARDIAC: Regular rate ABDOMEN: Soft, non-tender to palpation. J tube in place, no surrounding erythema. TF running. DATA: Diagnostic tests reviewed for today's visit: CBC, Coags, BMP, Mg, Phos Recent Labs 05/27/20 0618 05/26/20 0658 05/25/20 1524 05/25/20 1521 WBC 3.72 3.90 -- 4.02 HB 8.0* 8.5* -- 8.6* HCT 25.7* 27.2* -- 26.8* PLT 150 150 -- 170 NA -- 142 -- 143 K -- 3.5* -- 3.3* CHLOR -- 106* -- 107* CO2 -- 28 -- 26 BUN -- 8 -- 10 CREAT -- 0.68 -- 0.62 GLUC -- 98 -- 88 IC -- -- 1.20 -- CA -- 9.0 -- 8.9 MG -- 2.0 -- 1.9 SIGNATURE: Deirdre Dejesus DO Pager: [phone] DATE: 05/27/2020 TIME: 6:55 [facility]12-05-2020 NoteHNO ID: [id number] Author: Idalia Coffey) BRANDIE Cohen Service: Care Management Author Type: Registered Nurse Type: Care Mgt Initial Assessment Filed: 05/26/2020 2:22 PM Note Text: CARE MANAGEMENT: ASSESSMENT AND DISCHARGE PLAN SERVICE DATE: May 26, 2020 SERVICE TIME: 2:17 PM PRIMARY CARE PHYSICIAN: Viktor Sotelo MD ADMISSION STATUS: Observation Ms Anderson admitted from the ED for complaints of abdominal pain and nausea and vomiting. J-Tube in place for history of gastroparesis status post gastrectomy, Patient from home with 13 year old son. Sister providing care while patient is hospitalized. Alert and oriented x 3. No outside services in the home. Active with [facility] pharmacy for Tube feeding. Referral placed to verify if active prescription. Patient states family will provide transport Home at discharge. Care coordination team will continue to follow and update the discharge plan per medical needs. 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 Last discharge within 30 days: No Advance Directive: Current Advance Directive: None Coil Binder Attempted to Assist with AD Completion: Yes Action: Patient Unwilling Health LiteracyHow often do you need to have someone help you when you read instructions, pamphlets, or other written material from your doctor or pharmacy? : 1 - Never How confident are you filling out medical forms by yourself?: 1 - Extremely If Patient scores > 3 on either question, the following interventions were put into place:: Patient did not score > 3 on either question. Baseline Mental Status Prior to this Illness what was the patient's Baseline Mental Status?: Alert AND Oriented Prior to this illness, has anyone described the patient having any of the following behaviors?: Not Applicable Relationship of the informant to the patient:: Self Functional Status: Independent Does Patient Currently Receive Any Community Services or Home Care?: Infusion Equipment Prior to Admission: Feeding tube and supplies Has the Patient Been in a Nursing Home Facility in the Past 30 days?: No SOCIAL: Living Arrangements: Home Lives With: Son Financial Resources: Disabled Primary Contact: Extended Emergency Contact Information Primary Emergency Contact: Khalida Anaya Mobile Relation: Sister Secondary Emergency Contact: Lucreo Chaves Mobile Relation: Mother Supportive Patient Contact:: Yes Caregiver AssessmentCaregiver is ready, willing and able to meet the patient's needs as recommended by the inter-professional team:: No Caregiver needed Does the patient have an acute stroke diagnosis, or has the patient had a stroke during this admission?: No Patient's transition needs and plan for meeting these needs: home self care with outpatient follow-up with PCP and Surgery Patient's perception of need for this admission: nausea and vomiting Medication Adherance I am convinced of the importance of my prescription medication: 0 - Agree Completely I worry that my prescription medication will do more harm than good to me : 0 - Disagree Completely I feel financially burdened by my [id number] expenses for my prescription medication:: 0 - Disagree Completely Risk Score: 0 Patient is categorized as: Low risk < 2 Are you interested in bedside delivery of your medications? No Is Patient Psychosocially Complex?: No ASSESSMENT AND PLAN: Medical Needs: Medical Needs: Two or more chronic diseases;Nutritional Nutrition Needs: Tube Feed Psychosocial Needs: FREEDOM OF CHOICE EXPLAINED: Marlette of Choice Given: Yes Level of Care Discussed: Other: See Comment(home pharmacy) Provider list within the patient's requested geographic area shared with the patient/family: No Reason: Patient active with [facility] for tubefeeding and planning to continue at discharge POTENTIAL TRANSITION PLANS Home;Home Care Pharmacy SIGNATURE: Idalia Cohen RN PATIENT NAME: Maricarmen Anderson DATE: May 26, 2020 TIME: 2:16 PM PAGER/CONTACT #: [phone] Note HNO ID: [id number] Author: Interface Note Service: ? Author Type: ? Type: Progress Notes Filed: 05/26/2020 3:18 AM Note Text: Epic Scheduled Downtime: 05/26/2020 1:00:00 AM to 05/26/2020 3:06:00 [facility]07-13-2020 NoteHNO ID: [id number] Author: Maynor Manley DO Service: General Surgery Author Type: Resident Type: Progress Notes Filed: 01/02/2020 7:23 AM Note Text: Attestation signed by Clemente Eng at 01/02/2020 12:30 PM Attending Note I evaluated the patient and personally participated in the edward components. I agree with the resident's findings and plan as documented and have discussed the case and management of the patient's care with the resident. Signature: Clemente Eng MD Date: 01/02/2020 Time: 12:30 PM PROGRESS NOTES - GENERAL SURGERY PATIENT NAME: Maricarmen Anderson SERVICE DATE: 01/02/2020 SERVICE TIME: 7:10 AM ASSESSMENT AND PLAN Nausea, vomiting with inability to tolerate tube feeds Hx of?Marginal Ulcer ?S/p EGD and PEJ tube placement?10/25/2019 Gastroparesis- on tube feeds ?status post partial gastrectomy with Elaine-en-Y reconstruction 10/08 GERD ? RESIDENT ADDENDUM Patient seen and examined at bedside. HPI and patient history discussed with medical student and agree with below. My changes and corrections are identified in italics and strikeouts below. VSS, Tolerating TF at goal, no change in pain, nausea., likely to be d/c home today. SIGNATURE: Maynor Manley DO PAGER: [phone] DATE: January 02, 2020 TIME: 7:22 AM Assessment: currently tolerating J-tube feeds 50 ml. Still has lower abdominal pain not worsened by TF's. ? -Continue TF's -continue IVF -PRN enteric pain meds -Lovenox 40mg for VTE PPX -Protonix 40mg every day and carafate stopped SUBJECTIVE INTERVAL HISTORY OF PRESENT ILLNESS: Patient was seen and evaluated at [facility] this morning. No significant events overnight. Patient reports constant pain all over, some flatulence. Denies N/V. Overall patient feels the same pain as yesterday. MEDICATIONS: Current Facility-Administered Medications Medication Dose Route Frequency - iv contrast (radiology procedure) INTRAVENOUS DIRECTED PRN - promethazine 25 mg suppository (PHENERGAN) 25 mg RECTAL q 6 H PRN - tiZANidine 4 mg tab(s) (ZANAFLEX) 4 mg ORAL AT BEDTIME - sertraline 200 mg tab(s) (ZOLOFT) 200 mg ORAL AT BEDTIME - promethazine 25 mg tab(s) (PHENERGAN) 25 mg ORAL q 6 H PRN - ondansetron orally disintegrating 4 mg tab(s) (ZOFRAN ODT) 4 mg ORAL q 4 H PRN - cholecalciferol 1,000 Units tab(s) (VITAMIN D3) 1,000 Units ORAL BID - topiramate 100 mg tab(s) (TOPAMAX) 100 mg ORAL DAILY - acetaminophen 167 mg CUP (TYLENOL) 167 mg ORAL q 8 H PRN - enoxaparin 40 mg injection (LOVENOX) 40 mg SUBCUTANEOUS DAILY - NaCl 0.9% iv infusion 50 mL/hr INTRAVENOUS CONTINUOUS - oxyCODONE-acetaminophen 5-325 mg 1-2 tablet (PERCOCET) 1-2 tablet ORAL q 4 H PRN - pantoprazole 40 mg oral liquid (PROTONIX) 40 mg ORAL DAILY (6 AM) OBJECTIVE PHYSICAL EXAM: BP 98/62 Pulse 66 Temp (Src) 98.2 (Oral) Resp 16 Ht 5' 6 (1.68m) Wt 215 lb (97.5kg) SpO2 96% LMP 05/18/2019 BMI 34.72 kg/(m2). O2 Therapy: Room Air Intake/Output Summary (Last 24 hours) at 01/02/2020 0710 Last data filed at 01/01/2020 2305 Gross per 24 hour Intake 4311 ml Output ? Net 4311 ml GENERAL: Alert, no distress, cooperative LUNGS: non labored breathing CARDIAC: Rate: normal ABDOMEN: Abdomen soft, non-tender, J tube in place without any discharge around, No masses or organomegaly EXTREMITIES: Extremities normal, no deformities, edema, clubbing or skin discoloration. Good capillary refill., No ulcers DATA: Diagnostic tests reviewed for today's visit: CBC, Coags, BMP, Mg, Phos Recent Labs 01/02/20 0442 01/01/20 0505 12/31/19 0612 12/30/19 2301 WBC -- -- 5.08 6.26 HB -- -- 9.3* 9.8* HCT -- -- 28.7* 30.3* PLT -- -- 151 177 NA 137 137 138 138 K 3.8 3.7 3.6* 3.4* CHLOR 106* 105 105 105 CO2 26 26 25 26 BUN 9 8 9 11 CREAT 0.81 0.73 0.62 0.60 GLUC 106* 92 81 84 CA 9.2 9.0 8.9 9.1 MG -- -- -- 1.8 P -- -- 3.7 -- Liver Function, Amylase, AND Lipase Recent Labs 12/30/19 2301 TPROT 6.2* ALB 3.8 ALT 9 AST 15 ALKPHOS 70 TBILI 0.3 LIPASE 33 SIGNATURE: Vinita Lubin DO Pager: DATE: 01/02/2020 TIME: 7:10 [facility]07-12-2020 NoteHNO ID: [id number] Author: Glenny Chavarria (Sw) Service: Care Management Author Type: Farm Management Agent Type: Care Mgt Progress Note Filed: 01/01/2020 8:32 AM Note Text: CARE MANAGEMENT PROGRESS NOTE SERVICE DATE: 01/01/2020 SERVICE TIME: 8:30AM LOS: 0 days [facility] confirmed with patient that [facility] is provider for TF ( she also has TF at home for her use ) . [facility] will need script for her formula if patient in Observation / inpt more that 24 hours . No other services in the home . Patient describes herself as independent , managing tube feeding independently . She plans to return home where she resides with spouse. EMPERATRIZ Rodriguez SIGNATURE: EMPERATRIZ Hernandez PATIENT NAME: Maricaremn Anderson DATE: January 01, 2020 TIME: 8:30 AM PAGER/CONTACT #: [phone] NoteHNO ID: [id number] Author: Avtar Randhawa Service: General Surgery Author Type: Resident Type: Progress Notes Filed: 01/01/2020 6:36 AM Note Text: Attestation signed by Clemente Eng at 01/01/2020 12:15 PM Attending Note I evaluated the patient and personally participated in the edward components. I agree with the resident's findings and plan with the following revisions and/or additions: Some nausea and crampying lower abdominal pain, No TTP, keep TF at 40ml/hr, start Miralax, [facility] does not have her Linzess. Signature: Clemente Eng MD Date: 01/01/2020 Time: 12:15 PM Summary: Tolerating TF; cnt to increase as tolerated to home goal of 50 ml/hr PROGRESS NOTES - GENERAL SURGERY PATIENT NAME: Maricarmen Anderson SERVICE DATE: January 01, 2020 SERVICE TIME: 6:31 AM ASSESSMENT AND PLAN Nausea, vomiting with inability to tolerate tube feeds Hx of Marginal Ulcer ?S/p EGD and PEJ tube placement 10/25/2019 Gastroparesis- on tube feeds ?status post partial gastrectomy with Elaine-en-Y reconstruction 10/08 GERD Assessment: currently tolerating J-tube feeds at 30 ml and home rate 50 ml. Still has lower abdominal pain not worsened by TF's. -Continue TF's -continue IVF -f/u AM labs -PRN enteric pain meds -Lovenox 40mg for VTE PPX -Protonix 40mg every day and carafate stopped SUBJECTIVE INTERVAL HISTORY OF PRESENT ILLNESS: No acute events overnight. Pain stable MEDICATIONS: Current Facility-Administered Medications Medication Dose Route Frequency - iv contrast (radiology procedure) INTRAVENOUS DIRECTED PRN - promethazine 25 mg suppository (PHENERGAN) 25 mg RECTAL q 6 H PRN - tiZANidine 4 mg tab(s) (ZANAFLEX) 4 mg ORAL AT BEDTIME - sertraline 200 mg tab(s) (ZOLOFT) 200 mg ORAL AT BEDTIME - promethazine 25 mg tab(s) (PHENERGAN) 25 mg ORAL q 6 H PRN - ondansetron orally disintegrating 4 mg tab(s) (ZOFRAN ODT) 4 mg ORAL q 4 H PRN - cholecalciferol 1,000 Units tab(s) (VITAMIN D3) 1,000 Units ORAL BID - topiramate 100 mg tab(s) (TOPAMAX) 100 mg ORAL DAILY - pantoprazole 40 mg oral liquid (PROTONIX) 40 mg ORAL BID AC (0600/1600) - acetaminophen 167 mg CUP (TYLENOL) 167 mg ORAL q 8 H PRN - enoxaparin 40 mg injection (LOVENOX) 40 mg SUBCUTANEOUS DAILY - NaCl 0.9% iv infusion 100 mL/hr INTRAVENOUS CONTINUOUS - oxyCODONE-acetaminophen 5-325 mg 1-2 tablet (PERCOCET) 1-2 tablet ORAL q 4 H PRN OBJECTIVE PHYSICAL EXAM: BP 95/45 Pulse 61 Temp (Src) 97.5 (Oral) Resp 18 Ht 5' 6 (1.68m) Wt 215 lb (97.5kg) SpO2 97% LMP 05/18/2019 BMI 34.72 kg/(m2). O2 Therapy: Room Air Intake/Output Summary (Last 24 hours) at 01/01/2020 0631 Last data filed at 12/31/2019 1725 Gross per 24 hour Intake 1616 ml Output ? Net 1616 ml GENERAL: Alert, oriented, no acute distress LUNGS: Unlabored breathing HEART: RR ABDOMEN: Soft, non-distended, J-tube in place, scant dried blood around J-tube EXTREMITIES: No edema in bilateral lower extremities DATA: Diagnostic tests reviewed for today's visit: CBC, Coags, BMP, Mg, Phos Recent Labs 01/01/20 0505 12/31/19 0612 12/30/19 2301 WBC -- 5.08 6.26 HB -- 9.3* 9.8* HCT -- 28.7* 30.3* PLT -- 151 177 NA 137 138 138 K 3.7 3.6* 3.4* CHLOR 105 105 105 CO2 26 25 26 BUN 8 9 11 CREAT 0.73 0.62 0.60 GLUC 92 81 84 CA 9.0 8.9 9.1 MG -- -- 1.8 P -- 3.7 -- Liver Function, Amylase, AND Lipase Recent Labs 12/30/19 2301 TPROT 6.2* ALB 3.8 ALT 9 AST 15 ALKPHOS 70 TBILI 0.3 LIPASE 33 Signature: Avtar Randhawa DO, PGY-4 Date: January 01, 2020 Time: 6:31 AM Pager: [phone] between 6AM-5PM weekday. [phone] for weekend and night call.[facility]07-12-2020 NoteHNO ID: [id number] Author: Interface Note Service: ? Author Type: ? 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 Last discharge within 30 days: No Advance Directive: Current Advance Directive: None Health LiteracyHow often do you need to have someone help you when you read instructions, pamphlets, or other written material from your doctor or pharmacy? : 1 - Never How confident are you filling out medical forms by yourself?: 1 - Extremely Baseline Mental Status Prior to this Illness what was the patient's Baseline Mental Status?: Alert AND Oriented Prior to this illness, has anyone described the patient having any of the following behaviors?: Not Applicable Relationship of the informant to the patient:: Other: See Comment Name of Informant: : Per EMR , patient sleeping , SCOT MEREDITH to follow up with assessment questions Functional Status: Independent Does Patient Currently Receive Any Community Services or Home Care?: None Equipment Prior to Admission: Other: See Comment(Tube feed supplies) SOCIAL: Living Arrangements: Home Lives With: SpousePrimary Contact: Extended Emergency Contact Information Primary Emergency Contact: OmarsamiraKhalida Mobile Relation: Sister Secondary Emergency Contact: Dennis Anderson Mobile Relation: Spouse Supportive Patient Contact:: Unable to assess at this time Social Needs Food insecurity Worry: Never true Inability: Never true Resources Needed: No Social Needs Financial resource strain: Not hard at all Social Needs Transportation needs Medical: No Non-medical: No Caregiver AssessmentCaregiver is ready, willing and able to meet the patient's needs as recommended by the inter-professional team:: No Caregiver needed Does the patient have an acute stroke diagnosis, or has the patient had a stroke during this admission?: No Patient's perception of need for this admission: Yes Medication Adherance I am convinced of the importance of my prescription medication: 0 - Agree Completely I worry that my prescription medication will do more harm than good to me : 0 - Disagree Completely I feel financially burdened by my [id number] expenses for my prescription medication:: 0 - Disagree Completely Risk Score: 0 Patient is categorized as: Low risk < 2 Are you interested in bedside delivery of your medications? No Is Patient Psychosocially Complex?: No ASSESSMENT AND PLAN: Medical Needs: Medical Needs: Two or more chronic diseases Psychosocial Needs: Psychosocial Needs: None FREEDOM OF CHOICE EXPLAINED: Marlette of Choice Given: No Reason Not Given: No placements necessary POTENTIAL TRANSITION PLANS Patient active with [facility] in the community for tube feeding . SCOT MEREDITH to follow up with patient as to plan . PEJ tube Observation status. EMR reviewed. 5:00pm : [facility] indicates that Osmolite 1.5 , 1200 ml daily , 50ml/hour , free water flush at 100ml 6x a day. EMPERATRIZ Rodriguez SIGNATURE: EMPERATRIZ Hernandez PATIENT NAME: Maricarmen Anderson DATE: December 31, 2019 TIME: 3:09 PM PAGER/CONTACT #: [id number] NoteHNO ID: [id number] Author: Interface Note Service: ? Author Type: ? Type: Progress Notes Filed: 12/31/2019 3:12 AM Note Text: Epic Scheduled Downtime: 12/31/2019 1:00:00 AM to 12/31/2019 2:45:23 [facility]12-17-2019 History of Past illness Narrative* Problem Noted Date Resolved Date Nausea & vomiting 06/07/2019 06/09/2019 Dislodged jejunostomy tube 05/17/201905/18 Syncope 04/07/2019 08/15/2019 Syncope 03/28/2019 03/29/2019 Headache 03/27/2019 03/29/2019 Headache in front of head 03/12/20192018 Last Assessment & Plan: Assessment: - Frontal headache for past 2-3 days - Some photophobia - denies visual changes - intermittent dizziness with standing, this is not new PLAN: - headache cocktail PRN - MRI brain - EEG Altered behavior 03/11/2019 03/29/2019 Overview: Altered Mentation beginning on 02/26, thought due to UTI initially. Placed on CIpro course of ABX without improvement presented to several OSH ED and admitted once to [facility] with Negative MRI/EEG work up Continues to have symptoms including , drowsy, sluggish, slow response, and new numbness PLAN - Neurology consulted which recommended: We recommend: -- CBC, CMP -- Routine EEG -- Thiamine, B6, B12, folate, Vitamin E, copper -- Headache cocktail: Toradol 15-30 mg IV Benadryl 12.5 -50 mg IV Magnesium sulphate 2g IV (depending on levels) Metoclopramide 10mg IV -or- Compazine 10mg IV 500cc NS bolus Consider tizanidine for neck pain -- If no response: Repeat cocktail q6-8h -- MRI brain, (can be done as outpatient) -- Close follow up with Neurology Clinic - Magnesium, Phosphorous - f/u Neurology Last Assessment & Plan: Assessment: - Confusion and memory los beginning around 02/26, origionally thought to be associated with UTI. Placed on Cipro and presented to OSH [facility] and had a negative culture, antibiotics were stopped - She had an MRI/EEG workup at [facility] - negative - Continues symptoms- confusion, memory loss, slow to respond, slowed speech, numbness intermittently in upper extremities. New frontal headache over past 2-3 days, no visual changes. PLAN: - EEG - MRI kem [facility] - Thiamine, B6, B12, Ammonia, Lead, niacin, Ferritin, copper, Vit E pending - PRN headache cocktail - Neurology consulted Nausea & vomiting 10/13/2018 10/15/2018 Hypokalemia 10/22/2013 10/24/2013 Overview: K 3.3, likely 2/2 poor oral intake, replaced. Abdominal pain 10/18/2013 05/18/2019 Overview: - Hx of cholecystectomy and appendectomy. - Has been having epigastric abdominal pain for a month, on and off, 3-4 times a day. - OSH colonoscopy normal, EGD with severe esophagitis, Bx showed eosinophilic esophagitis per patient. - 4 episodes of hematemesis. DD: Jessi-Crystal Tear vs PUD vs esophagitis. Plan: -NPO -EGD TMW -KUB -PPI -Type & Screen -Hold off anticoagulation. -Pain and Nausea control. Nausea and vomiting 10/18/2013 03/29/2019 Overview: Please see abdominal pain for more details. Zofran prn. documented as of this encounter (statuses as of 09/18/2021) [facility]12-17-2019 History of Past illness Narrative* Problem Noted Date Resolved Date Nausea & vomiting 06/07/2019 06/09/2019 Dislodged jejunostomy tube 05/17/201905/18 Syncope 04/07/2019 08/15/2019 Syncope 03/28/2019 03/29/2019 Headache 03/27/2019 03/29/2019 Headache in front of head 03/12/20192018 Last Assessment & Plan: Assessment: - Frontal headache for past 2-3 days - Some photophobia - denies visual changes - intermittent dizziness with standing, this is not new PLAN: - headache cocktail PRN - MRI brain - EEG Altered behavior 03/11/2019 03/29/2019 Overview: Altered Mentation beginning on 02/26, thought due to UTI initially. Placed on CIpro course of ABX without improvement presented to several OS ED and admitted once to [facility] with Negative MRI/EEG work up Continues to have symptoms including , drowsy, sluggish, slow response, and new numbness PLAN - Neurology consulted which recommended: We recommend: -- CBC, CMP -- Routine EEG -- Thiamine, B6, B12, folate, Vitamin E, copper -- Headache cocktail: Toradol 15-30 mg IV Benadryl 12.5 -50 mg IV Magnesium sulphate 2g IV (depending on levels) Metoclopramide 10mg IV -or- Compazine 10mg IV 500cc NS bolus Consider tizanidine for neck pain -- If no response: Repeat cocktail q6-8h -- MRI brain, (can be done as outpatient) -- Close follow up with Neurology Clinic - Magnesium, Phosphorous - f/u Neurology Last Assessment & Plan: Assessment: - Confusion and memory los beginning around 02/26, origionally thought to be associated with UTI. [facility] antibiotics were stopped - She had an MRI/EEG workup at [facility] - negative - Continues symptoms- confusion, memory loss, slow to respond, slowed speech, numbness intermittently in upper extremities. New frontal headache over past 2-3 days, no visual changes. PLAN: - EEG - MRI kem [facility] - Thiamine, B6, B12, Ammonia, Lead, niacin, Ferritin, copper, Vit E pending - PRN headache cocktail - Neurology consulted Nausea & vomiting 10/13/2018 10/15/2018 Hypokalemia 10/22/2013 10/24/2013 Overview: K 3.3, likely 2/2 poor oral intake, replaced. Abdominal pain 10/18/2013 05/18/2019 Overview: - Hx of cholecystectomy and appendectomy. - Has been having epigastric abdominal pain for a month, on and off, 3-4 times a day. - OSH colonoscopy normal, EGD with severe esophagitis, Bx showed eosinophilic esophagitis per patient. - 4 episodes of hematemesis. DD: Jessi-Crystal Tear vs PUD vs esophagitis. Plan: -NPO -EGD TMW -KUB -PPI -Type & Screen -Hold off anticoagulation. -Pain and Nausea control. Nausea and vomiting 10/18/2013 03/29/2019 Overview: Please see abdominal pain for more details. Julianna hernandezn. documented as of this encounter (statuses as of 12/26/2021) [facility] complaint Narrative - Reported* Patient is being seen for an initial Neurosurgical evaluation. * History of Chiari malformation. Having neck pain and numbness and tingling in her face and arms. Had seen F doctor, told her not warranted at this time. [id number] Work Phone: Evaluation + Plan note No data available for this section [facility] evaluation + Plan note Future Appointments Appointment Date:05/03/2024 09:00:00 AM Scheduled Provider:ESTELA CHUNG PA-C Location:[facility] Appointment Type:URO Office Visit [facility] evaluation + Plan note Future Appointments Appointment Date:06/02/2024 02:20:00 PM Scheduled Provider:ESTELA CHUNG PA-C Location:[facility] Appointment Type:URO Office Visit [facility] Evaluation note* Diagnosis Onset Date Resolution Status Advanced maternal age affecting , antepartum acute Anemia acute BMI 35.0-35.9,adult acute Depression acute First trimester ac [place] History of induced hypertension acute Major depression 2021 acute Major depression with psychotic features acute acute PTSD (post-traumatic stress disorder) acute UTI (urinary tract infection) acute [facility] Work Phone: Evaluation noteNo assessment information available [facility] Work Phone: evaluation note* Diagnosis Onset Date Resolution Status Hallucinations acute History of induced hypertension acute Major depression with psychotic features acute acute Schizoaffective disorder acu te [facility] Work Phone: Evaluation note* Diagnosis Onset Date Resolution Status Hallucinations acute History of induced hypertension acute Major depression with psychotic features acute acute Schizoaffective disorder acu te Chiari malformation type I a cute History of induced hypertension acute [facility] Work Phone: Evaluation note* Diagnosis Onset Date Resolution Status Hallucinations acute History of induced hypertension acute Major depression with psychotic features acute acute Schizoaffective disorder acu te Chiari malformation type I a cute History of induced hypertension acute Schizoaffective disorder acu te Auditory hallucination acute Depression with suicidal ideation acute Schizoaffective disorder acu te Suicide ideation acute [facility] Work Phone: Evaluation note* Diagnosis Onset Date Resolution Status Chiari malformation type I a cute History of induced hypertension acute Schizoaffective disorder acu te Auditory hallucination acute Depression with suicidal ideation acute Schizoaffective disorder acu te Suicide ideation acute Auditory hallucinations acut e [facility] Work Phone: Evaluation note* Diagnosis Onset Date Resolution Status Schizoaffective disorder acu te Auditory hallucination acute Depression with suicidal ideation acute Schizoaffective disorder acu te Suicide ideation acute Auditory hallucinations acut e Gastroparesis acute Nausea & vomiting acute Schizoaffective disorder acu te [facility] Work Phone: Evaluation note* Diagnosis Onset Date Resolution Status Auditory hallucinations acut e Gastroparesis acute Nausea & vomiting acute Schizoaffective disorder acu te [facility] Work Phone: Evaluation note* Diagnosis Onset Date Resolution Status Auditory hallucinations acut e Gastroparesis acute Nausea & vomiting acute Schizoaffective disorder acu te Schizoaffective disorder acu te Suicide ideation acute [facility] Work Phone: Evaluation note* Diagnosis Pacemaker Cardiac pacemaker in situ Sick sinus syndrome (CMS/HCC) Sinoatrial node dysfunction documented in this encounter [facility] Work Phone: Evaluation note* Diagnosis Pacemaker Cardiac pacemaker in situ Sick sinus syndrome (CMS/HCC) Sinoatrial node dysfunction documented in this encounter [facility] Work Phone: Evaluation note* Diagnosis Pacemaker Cardiac pacemaker in situ Sick sinus syndrome (Multi) Sinoatrial node dysfunction documented in this encounter [facility] Work Phone: Evaluation note* Diagnosis Pacemaker Cardiac pacemaker in situ Sick sinus syndrome (Multi) Sinoatrial node dysfunction documented in this encounter [facility] Work Phone: History and physical note Author Eduardo Swain [facility] December 12, 2022 10:19am Note Date/Time December 12, 2022 10:1 9am [facility] [address] [place] [address] Psychiatry H&P Signed Patient: Maricarmen Anderson MR#: [id number] : 1980 Acct:[id number] Age/Sex: 42 / F Adm Date: 3 Loc: Room: [address] [place] [address] Type: ADM IN Attending Dr: Eduardo Swain MD Copies to: MD Viktor Duncan MD~ Date of Service: 12/12/2022 HPI History of Present Illness History of present illness: Ms. Anderson is a 42 year old female who presented due to concern for suicidal ideation and tremor. Upon assessment, patient reported that since her Invega Sustenna she has been having some suicidal thoughts. She stated that the medication has also been causing her to have a tremor that is intermittent. She reported that her mood feels depressed and just feels tired and not wanting to do anything. She reported that she has some lack of motivation. She reported that her outpatientprovider has been talking about possibly using a different medication and would see how she would respond after this Invega Sustenna. She reported that she still has some baseline hallucinations at this time but overall they are manageable. Past psych history: Schizoaffective Past hospitalizations: Previous past psychiatric hospitalizations Past suicide attempts: Twice in 2021 via overdose Family psych history: Reports her father is bipolar Previous medications: Effexor, Trazodone, Remeron, Invega, and Abilify. Alcohol and drug use: Denies. Living: With family Employment: Disabled Relationships: States that she has good emotional support from friends and family. Review of symptoms: Constitutional: Denies chills and Denies fever(s) Eyes: Denies change in vision ENT: Denies abnormal hearing Cardiovascular: Denies chest pain Respiratory: Denies chest congestion and Denies cough Gastrointestinal: Denies change in bowel habits Genitourinary: Denies dysuria Musculoskeletal: Denies atrophy and Denies myalgias Integumentary/Breasts: Denies dry skin Neurologic: Denies abnormal gait and Denies abnormal movements Psychiatric: Reports depression and suicidal ideation Physical exam: Const: cooperative Nutritional Appearance: average body habitus Orientation: alert, awake and oriented x3 HEENT: Head normal to inspection, hearing grossly normal bilaterally, external nose normal, face symmetric Eyes: appearance normal, both eyes and all related structures, sclerae normal Neck: normal visual inspection and full ROM Resp: normal respiratory effort, able to speak in complete sentences and symmetric chest movement Cardio: regular rate GI: normal to inspection and non-distended : deferred Skin: no rashes or lesions noted Neuro: CNI: Normal olfaction CNI: normal olfaction CNII: Visual maria intact, CNIII,IV,: EOM intact, no nystagmus. Pupils equal, round, reactive to light and accommodation, CNV: Sensation intact to light touch, CNVII: Raises eyebrows, smile/frown, puff out cheeks symmetrically, CNVIII: Hearing intact bilaterally, CNIX,X: Voice normal, soft palate elevation normal, symmetrical, CNXI: Shoulder shrug strong, equal bilaterally, CNXII: Tongue protrusion midline, movement symmetrical. Extrem: normal to inspection and full ROM Mental Status Exam: Appearance: grossly normal Mental Status: mental status grossly normal Mood: dysthymic mood Affect: dysphoric affect Speech and Movement: speech and movement normal and speech clear Attitude: cooperative Thought Process: normal Thought Content: Reported baseline hallucinations, no homicidality, reported suicidality Insight: fair Judgment: fair PMFSH Vaccinated for COVID-19?: Unknown Medical History (Updated 12/12/22 @ 01:22 by Ke Cage DO) Anemia Bipolar disorder Chiari malformation type I Gastroparesis s/p gastrectomy GERD (gastroesophageal reflux disease) History of induced hypertension Myasthenia gravis Pacemaker Port-A-Cath in place Schizoaffective disorder Schizophrenia Status post placement of implantable loop recorder REMOVED Surgical History History of appendectomy History of cholecystectomy History of gastric surgery Family History Father ALS (amyotrophic lateral sclerosis) Heart disease Mother Diabetes Social History Smoking Status: Never smoker Substance Use Type: None Meds Medications and Allergies Allergies hydromorphone [From Dilaudid] Adverse Reaction (Verified 12/11/22 17:47) Itching Home Medications trazodone 50 mg tablet 75 mg PO QHS PRN Insomnia 07/02/22 [History Confirmed 12/11/22] venlafaxine 150 mg capsule,extended release 24 hr (Effexor XR) 150 mg PO DAILY 07/02/22 [History Confirmed 12/11/22] aripiprazole 30 mg tablet 30 mg PO DAILY 09/03/22 [History Confirmed 12/11/22] paliperidone 3 mg tablet,extended release 24 hr 3 mg PO BID 15 days #30 tabs 09/07/22 [Rx Confirmed 12/11/22] ondansetron 4 mg disintegrating tablet 4 mg PO TID PRN Nausea 10/28/22 [History Confirmed 12/11/22] cholecalciferol (vitamin D3) 25 mcg (1,000 unit) tablet 50 mcg PO DAILY 30 days #60 tabs 11/01/22 [Rx Confirmed 12/11/22] cyanocobalamin (vitamin B-12) 1,000 mcg tablet 1,000 mcg PO QAM #30 tabs 11/01/22 [Rx Confirmed 12/11/22] paliperidone palmitate 234 mg/1.5 mL intramuscular syringe (Invega Sustenna) 234mg IM Q28D 12/11/22 [History Confirmed 12/11/22] promethazine 12.5 mg rectal suppository 12.5 mg WV Q6H PRN Nausea And Vomiting 12/11/22 [History Confirmed 12/11/22] Exam Physical Exam Vital Signs: Temp Pulse Resp BP Pulse Ox O2 Del Method 97.7 F 88 16 108/66 95 Room Air 12/12/22 07:30 12/12/22 07:30 12/12/22 07:30 12/12/22 07:30 12/12/22 07:30 12/12/22 07:30 Results Labs 12/11/22 18:59 12/11/22 18:59 Psychiatry Labs: 12/11/22 12/11/22 12/11/22 18:59 18:59 19:08 RBC 4.38 Hgb 14.2 Hct 41.8 MCV 95.4 MCH 32.4 MCHC 33.9 RDW 12.9 Plt Count 185 MPV 7.9 Sodium 140 Potassium 3.8 Chloride 107 Carbon Dioxide 24.2 Anion Gap 12.6 BUN 7 Creatinine 0.78 Calcium 9.9 Total Bilirubin 0.6 AST 20 ALT 13 Alkaline Phosphatase 83 Total Protein 7.5 Albumin 4.8 Urine Color Yellow Urine Appearance Slightly cloudy A Urine pH 6.0 Ur Specific [place] 1.015 Urine Protein Negative Urine Glucose (UA) Normal Urine Ketones Negative Urine Occult Blood Negative Urine Nitrite Negative Ur Leukocyte Esterase 2+ H Urine RBC 0-1 Urine WBC 5-9 H Assessment/Plan (1) Schizoaffective disorder: Code(s): F25.9 - Schizoaffective disorder, unspecified Status: Acute Plan Patient presenting due to suicidal thoughts. She has also been experiencing some anhedonia and lack of motivation. She reported that symptoms started afterInvega Sustenna We will stop oral Invega at this time Continue Abilify 30 mg, Effexor 150 mg, Remeron 15 mg Continue to monitor mental status Encourage group participation and medication compliance Risk benefits alternatives explained Documented By: Eduardo Swain MD 12/12/22 1016 Signed By: <Electronically signed by Eduardo Swain MD> 12/12/22 1014 [facility] Work Phone: History of Present illness Narrative* She is here for electrophysiology evaluation * The patient is here to discuss bradycardia and pacemaker. * She is 9 weeks . * She has noticed heart rates up to 120s to 140s beats per minute on her Fitbit. She tries to drink water but she knows she is not drinking enough. When she sees her heartbeat fast she may be short of breath. With rest it subsides. * Occasionally she can get a little dizzy. * The patient denies any lightheadedness, near syncope, syncope, palpitation, chest discomfort, orthopnea, PND, or edema. * The device site continues to be well-healed and unchanged. The patient denies any redness, swelling, or drainage of the site. * See ROS, PMH, FMH, and surgical history for details. 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 * Personal review of ECG and cardiac data reviewed . * Outside records: * OV with me December 2020 * Device check December 2020 * Office visit June 2020 * Device check November 2020 * Device check October 2020 * Office note October 2020 * Device Check: Today. [employer] 2272 pacemaker. Estimate longevity device over 9 years. 12% atrial pacing. Less than 1% ventricular pacing. Probable sinus tachycardia * ECG: Today. Normal sinus rhythm. Normal axis. Corrected QT interval 390 ms * Imp / Plan * Chronotropic incompetence intermittent complete heart block, and sinus node dysfunction with symptoms of near syncope and syncope. Documented over 4- second pause by loop recorder. History of negativeEP study with no inducible arrhythmias. Stable. Chronic. No recurrence of syncope after pacemaker im planted. * History of loop recorder 2019 and subsequent removal of loop recorder after documentation of pause and intermittent complete heart block * [employer] 2272 pacemaker in 2019. Reviewed device check. Stable. Normal device function. Reviewed device check with patient. Ordered device check. Alternate remote check with device clinic paired With EP office visit. * Likely sinus tachycardia. Recommend increase fluid intake. Heavy modification reinforced.. * Negative CTA for pulmonary embolism. Chronic. Stable. No symptoms. * Chronic gastroparesis. Port removed once fluid status stable. * Pseudotumor cerebri per MRI per patient report. Chronic. Stable. Takes Diamox and lamotrigine. Patient report, she is on medical disability due to Chiari network and intra cerebral pressure. Follows with neurology and neurosurgery * Seizure disorder. Chronic. Stable. Follows with neurology * Intrauterine . 9 weeks. We will see patient in 6 months before anticipated platelet. Obtain device check prior to next office visit. * Overweight * AHA recommendations for exercise, diet, and behavioral modification reviewed with pt. * The patient and I discussed the mechanism of arrhythmia, , fluid status, ECG, pacemaker check, device clinic, device follow-up, indications for and types of medications, discussion if and what medication refills needed, treatment options, risks, benefits, and imponderables. [facility] [employer] ssociation lifestyle changes and behavioral modification discussed. All questions answered in detail. Counseling over 50% visit regarding above. Patient appreciative of care. [facility] DO Work Phone: History of Present illness Narrative* She is here for electrophysiology evaluation * The patient is here to discuss bradycardia and pacemaker. * She is 9 weeks . * She has noticed heart rates up to 120s to 140s beats per minute on her Fitbit. She tries to drink water but she knows she is not drinking enough. When she sees her heartbeat fast she may be short of breath. With rest it subsides. * Occasionally she can get a little dizzy. * The patient denies any lightheadedness, near syncope, syncope, palpitation, chest discomfort, orthopnea, PND, or edema. * The device site continues to be well-healed and unchanged. The patient denies any redness, swelling, or drainage of the site. * See ROS, PMH, FMH, and surgical history for details. 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 * Personal review of ECG and cardiac data reviewed . * Outside records: * OV with me December 2020 * Device check December 2020 * Office visit June 2020 * Device check November 2020 * Device check October 2020 * Office note October 2020 * Device Check: Today. [employer] 9372 pacemaker. Estimate longevity device over 9 years. 12% atrial pacing. Less than 1% ventricular pacing. Probable sinus tachycardia * ECG: Today. Normal sinus rhythm. Normal axis. Corrected QT interval 390 ms * Imp / Plan * Chronotropic incompetence intermittent complete heart block, and sinus node dysfunction with symptoms of near syncope and syncope. Documented over 4- second pause by loop recorder. History of negativeEP study with no inducible arrhythmias. Stable. Chronic. No recurrence of syncope after pacemaker im planted. * History of loop recorder 2019 and subsequent removal of loop recorder after documentation of pause and intermittent complete heart block * [employer] 2272 pacemaker in 2019. Reviewed device check. Stable. Normal device function. Reviewed device check with patient. Ordered device check. Alternate remote check with device clinic paired With EP office visit. * Likely sinus tachycardia. Recommend increase fluid intake. Heavy modification reinforced.. * Negative CTA for pulmonary embolism. Chronic. Stable. No symptoms. * Chronic gastroparesis. Port removed once fluid status stable. * Pseudotumor cerebri per MRI per patient report. Chronic. Stable. Takes Diamox and lamotrigine. Patient report, she is on medical disability due to [employer] network and intra cerebral pressure. Follows with neurology and neurosurgery * Seizure disorder. Chronic. Stable. Follows with neurology * Intrauterine . 9 weeks. We will see patient in 6 months before anticipated platelet. Obtain device check prior to next office visit. * Overweight * AHA recommendations for exercise, diet, and behavioral modification reviewed with pt. * The patient and I discussed the mechanism of arrhythmia, , fluid status, ECG, pacemaker check, device clinic, device follow-up, indications for and types of medications, discussion if and what medication refills needed, treatment options, risks, benefits, and imponderables. [employer] lifestyle changes and behavioral modification discussed. All questions answered in detail. Counseling over 50% visit regarding above. Patient appreciative of care. [facility] 320 DO Work Phone: History of Present illness Narrative* She is here for electrophysiology evaluation * The patient is here to discuss bradycardia and pacemaker. * She is 9 weeks . * She has noticed heart rates up to 120s to 140s beats per minute on her Fitbit. She tries to drink water but she knows she is not drinking enough. When she sees her heartbeat fast she may be short of breath. With rest it subsides. * Occasionally she can get a little dizzy. * The patient denies any lightheadedness, near syncope, syncope, palpitation, chest discomfort, orthopnea, PND, or edema. * The device site continues to be well-healed and unchanged. The patient denies any redness, swelling, or drainage of the site. * See ROS, PMH, FMH, and surgical history for details. 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 * Personal review of ECG and cardiac data reviewed . * Outside records: * OV with me December 2020 * Device check December 2020 * Office visit June 2020 * Device check November 2020 * Device check October 2020 * Office note October 2020 * Device Check: Today. [employer] 2272 pacemaker. Estimate longevity device over 9 years. 12% atrial pacing. Less than 1% ventricular pacing. Probable sinus tachycardia * ECG: Today. Normal sinus rhythm. Normal axis. Corrected QT interval 390 ms * Imp / Plan * Chronotropic incompetence intermittent complete heart block, and sinus node dysfunction with symptoms of near syncope and syncope. Documented over 4- second pause by loop recorder. History of negativeEP study with no inducible arrhythmias. Stable. Chronic. No recurrence of syncope after pacemaker im planted. * History of loop recorder 2019 and subsequent removal of loop recorder after documentation of pause and intermittent complete heart block * [employer] 2272 pacemaker in 2019. Reviewed device check. Stable. Normal device function. Reviewed device check with patient. Ordered device check. Alternate remote check with device clinic paired With EP office visit. * Likely sinus tachycardia. Recommend increase fluid intake. Heavy modification reinforced.. * Negative CTA for pulmonary embolism. Chronic. Stable. No symptoms. * Chronic gastroparesis. Port removed once fluid status stable. * Pseudotumor cerebri per MRI per patient report. Chronic. Stable. Takes Diamox and lamotrigine. Patient report, she is on medical disability due to [employer] network and intra cerebral pressure. Follows with neurology and neurosurgery * Seizure disorder. Chronic. Stable. Follows with neurology * Intrauterine . 9 weeks. We will see patient in 6 months before anticipated platelet. Obtain device check prior to next office visit. * Overweight * AHA recommendations for exercise, diet, and behavioral modification reviewed with pt. * The patient and I discussed the mechanism of arrhythmia, , fluid status, ECG, pacemaker check, device clinic, device follow-up, indications for and types of medications, discussion if and what medication refills needed, treatment options, risks, benefits, and imponderables. [employer] lifestyle changes and behavioral modification discussed. All questions answered in detail. Counseling over 50% visit regarding above. Patient appreciative of care. [facility] Work Phone: History of Present illness Narrative* She is here for electrophysiology evaluation * The patient is here to discuss bradycardia and pacemaker. * She is 36 weeks . * SHe hasn't had any blood pressure or heart rate issues during . * She inquires about whether or C section is recommended. * We discussed that if labor is prolonged then moving to C section to avoid tachycardia would be recommended. * Rarely she is dizzy. * The patient denies any lightheadedness, near syncope, syncope, palpitation, chest discomfort, orthopnea, PND, orthopnea, or edema. * The device site is well-healed and unchanged. The patient denies any redness, swelling, or drainageof the site. * See ROS, PMH, FMH, and surgical history for details. 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 * Personal review of ECG and cardiac data reviewed . * Outside records: * OV with me December 2021 * Device check December 2021 * ECG December 2021 * Device Check: Today. [employer] 2272 pacemaker. Estimate longevity device over 7 years. 7% atrial pacing. Less than 1% ventricular pacing. Probable sinus tachycardia vs atrial tachycardia, up to 7 minutes duration, less than 1% AT/AF * ECG: Today. Normal sinus rhythm. Normal axis. Corrected QT interval 410 ms * Imp / Plan * Chronotropic incompetence intermittent complete heart block, and sinus node dysfunction with symptoms of near syncope and syncope. Documented over 4- second pause by loop recorder. History of negativeEP study with no inducible arrhythmias. Stable. Chronic. No recurrence of syncope after pacemaker im planted. Heart rate histogram is susceptible. No change in sensor settings needed presently * History of loop recorder 2019 and subsequent removal of loop recorder after documentation of pause and intermittent complete heart block * [facility] 2272 pacemaker in 2019. Reviewed device check. Stable. Normal device function. Reviewed device check with patient. Ordered device checks. Alternate remote check with device clinic paired With EP office visit. * Likely sinus tachycardia versus atrial tachycardia. Recommend increase fluid intake. Behavioral modification reinforced.. * Negative CTA for pulmonary embolism. Chronic. Stable. No symptoms. * Chronic gastroparesis. Port removed once fluid status stable. * Pseudotumor cerebri per MRI per patient report. Chronic. Stable. Takes Diamox and lamotrigine. Patient report, she is on medical disability due to [employer] network and intra cerebral pressure. Follows with neurology and neurosurgery * Seizure disorder. Chronic. Stable. Follows with neurology * Intrauterine . 36 weeks. No arrhythmia issues noted. If prolonged labor, would then recommend C section to minimize tachycardia * Overweight * AHA recommendations for exercise, diet, and behavioral modification reviewed with pt. * The patient and I discussed the mechanism of arrhythmia, , fluid status, ECG, pacemaker check, device function, device clinic, effect of labor on tachycardia, ndications for and types of medications, discussion if and what medication refills needed, treatment options, risks, benefits, and i mponderables. [employer] lifestyle changes and behavioral modification discussed. All questions answered in detail. Counseling over 50% visit regarding above. Patient appreciative of care. [facility] 320 DO Work Phone: History of Present illness Narrative* She is here for electrophysiology evaluation * The patient is here to discuss bradycardia and pacemaker. * She is 36 weeks . * SHe hasn't had any blood pressure or heart rate issues during . * She inquires about whether or C section is recommended. * We discussed that if labor is prolonged then moving to C section to avoid tachycardia would be recommended. * Rarely she is dizzy. * The patient denies any lightheadedness, near syncope, syncope, palpitation, chest discomfort, orthopnea, PND, orthopnea, or edema. * The device site is well-healed and unchanged. The patient denies any redness, swelling, or drainageof the site. * See ROS, PMH, FMH, and surgical history for details. 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 * Personal review of ECG and cardiac data reviewed . * Outside records: * OV with me December 2021 * Device check December 2021 * ECG December 2021 * Device Check: Today. [employer] 7555 pacemaker. Estimate longevity device over 7 years. 7% atrial pacing. Less than 1% ventricular pacing. Probable sinus tachycardia vs atrial tachycardia, up to 7 minutes duration, less than 1% AT/AF * ECG: Today. Normal sinus rhythm. Normal axis. Corrected QT interval 410 ms * Imp / Plan * Chronotropic incompetence intermittent complete heart block, and sinus node dysfunction with symptoms of near syncope and syncope. Documented over 4- second pause by loop recorder. History of negativeEP study with no inducible arrhythmias. Stable. Chronic. No recurrence of syncope after pacemaker im planted. Heart rate histogram is susceptible. No change in sensor settings needed presently * History of loop recorder 2019 and subsequent removal of loop recorder after documentation of pause and intermittent complete heart block * [employer] 2272 pacemaker in 2019. Reviewed device check. Stable. Normal device function. Reviewed device check with patient. Ordered device checks. Alternate remote check with device clinic paired With EP office visit. * Likely sinus tachycardia versus atrial tachycardia. Recommend increase fluid intake. Behavioral modification reinforced.. * Negative CTA for pulmonary embolism. Chronic. Stable. No symptoms. * Chronic gastroparesis. Port removed once fluid status stable. * Pseudotumor cerebri per MRI per patient report. Chronic. Stable. Takes Diamox and lamotrigine. Patient report, she is on medical disability due to [employer] network and intra cerebral pressure. Follows with neurology and neurosurgery * Seizure disorder. Chronic. Stable. Follows with neurology * Intrauterine . 36 weeks. No arrhythmia issues noted. If prolonged labor, would then recommend C section to minimize tachycardia * Overweight * AHA recommendations for exercise, diet, and behavioral modification reviewed with pt. * The patient and I discussed the mechanism of arrhythmia, , fluid status, ECG, pacemaker check, device function, device clinic, effect of labor on tachycardia, ndications for and types of medications, discussion if and what medication refills needed, treatment options, risks, benefits, and i mponderables. [employer] lifestyle changes and behavioral modification discussed. All questions answered in detail. Counseling over 50% visit regarding above. Patient appreciative of care. [facility] 320 DO Work Phone: History of Present illness Narrative* She is here for electrophysiology follow-up. * The patient is here to discuss bradycardia and pacemaker. * She had no issues with delivery of her baby. * The baby is now 5 months old. * She is not breast-feeding. * Rarely she may get a spike in her heart rate * The patient denies any lightheadedness, near syncope, syncope,chest discomfort, orthopnea, PND, orthopnea, or edema. * The device site continues to be well-healed and unchanged. The patient denies any redness, swelling, or drainage of the site. * See ROS, PMH, FMH, and surgical history for details. * Personal review of ECG and cardiac data reviewed . * Outside records: * OV with me June 2022 * ECG June 2022 * Device check June 2022 * OV with me December 2021 * Device check December 2021 * ECG December 2021 * Device Check: Today. [employer] 2272 pacemaker. On field alert. Discussed field alert status.Estimate longevity device over 8 years. 44 % atrial pacing. Less than 1% ventricular pacing.. SVT, poss atrial tachycardia, noted. Less than 1% AT/AF * ECG: Today. Normal sinus rhythm. Normal axis. Corrected QT interval 420 ms * Imp / Plan * Chronotropic incompetence intermittent complete heart block, and sinus node dysfunction with symptoms of near syncope and syncope. Documented over 4- second pause by loop recorder. History of negativeEP study with no inducible arrhythmias. Stable. Chronic. Acceptable heart rate histogram. * History of loop recorder 2019 and subsequent removal of loop recorder after documentation of pause and intermittent complete heart block * [employer] 2272 pacemaker in 2019. Device and alert. Stable. Normal device function. Revieweddevice check with patient. Ordered device checks. Continue to alternate remote check with device clinic paired With EP office visit. * PSVT, possible atrial tachycardia. Recommend increase fluid intake. Start metoprolol succinate 25 mg daily. New prescription sent * Negative CTA for pulmonary embolism. Chronic. Stable. No symptoms. * Chronic gastroparesis. Port removed once fluid status stable. * Pseudotumor cerebri per MRI per patient report. Chronic. Stable. Takes Diamox and lamotrigine. Patient report, she is on medical disability due to [employer] network and intra cerebral pressure. Follows with neurology and neurosurgery * Seizure disorder. Chronic. Stable. Follows with neurology * I uncomplicated delivery 5 months ago. No arrhythmias issues * Overweight * AHA recommendations for exercise, diet, and behavioral modification reviewed with pt. * The patient and I discussed the mechanism of arrhythmia, recent delivery with no arrhythmias, device function, PSVT, possible ablation which she declines, medications which she is agreeable to initiate to suppress PSVT, indications for and types of medications, discussion if and what medication refills needed, treatment options, risks, benefits, and imponderables. [employer] lifestyle changes and behavioral modification discussed. All questions answered in detail. Counseling over 50% visit regarding above. Patient appreciative of care. [facility] 320 DO Work Phone: [facility] Discharge instructions Additional Instructions Regular Diet No Activity [facility]ions[facility] Work Phone: Hospital Discharge instructions Additional Instructions Obtain BP cuff at pharmacy and obtain BP at home twice daily after resting for ten minutes prior to performing. Call Labor and Delivery for BP elevated 150/100 x 2 readings. Return Thursday08/05/2022 at 0900 for NST and BP check.[facility] Work Phone: Hospital Discharge instructions No data available for this section [facility] Hospital Discharge instructions Additional Instructions No Activity Restrictions Regular Diet continue your vitamin therapy after gastric surgery as prescribed. Your vitamin D and B12 were found low while you were i the hospital.[facility] Work Phone: Progress note No data available for this section [facility] reason for visit Narrative* Imaging (Routine) - Pending Review Specialty Diagnoses / Procedures Referred By Laura t Referred To Contact Cardiology Diagnoses Pacemaker Sick sinus syndrome (Multi) Procedures Cardiac Device Check - Remote Rita Olivia MD [address] [facility] Medical Office [facility] [address] [place] [address] Phone: tel: fax: Referral ID Status Reason Start Date Expiration Date Visits Requested Visits Authorized [id number] Pending Review Perform Procedure 05/25/2024 05/25/2025 1 1 [facility] Work Phone: Summary Purpose Family History No Family History Records FoundUnknown Family Member Name Dates Details Family history of glaucoma: Father(V19.11, Z83.511) Status:Active Family history of diabetes m ellitus: Mother, Father(V18.0, Z83.3) Status:Active Unknown Family Member Name Dates Details Family history of glaucoma: Father(V19.11, Z83.511) Status:Active Family history of diabetes m ellitus: Mother, Father(V18.0, Z83.3) Status:Active Unknown Family Member Name Dates Details Family history of glaucoma: Father(V19.11, Z83.511) Status:Active Family history of diabetes m ellitus: Mother, Father(V18.0, Z83.3) Status:Active Unknown Family Member Name Dates Details Family history of glaucoma: Father(V19.11, Z83.511) Status:Active Family history of diabetes m ellitus: Mother, Father(V18.0, Z83.3) Status:Active Unknown Family Member Name Dates Details Family history of glaucoma: Father(V19.11, Z83.511) Status:Active Family history of diabetes m ellitus: Mother, Father(V18.0, Z83.3) Status:Active Unknown Family Member Name Dates Details Family history of glaucoma: Father(V19.11, Z83.511) Status:Active Family history of diabetes m ellitus: Mother, Father(V18.0, Z83.3) Status:Active Unknown Family Member Name Dates Details Family history of glaucoma: Father(V19.11, Z83.511) Status:Active Family history of diabetes m ellitus: Mother, Father(V18.0, Z83.3) Status:Active Unknown Family Member Name Dates Details Family history of glaucoma: Father(V19.11, Z83.511) Status:Active Family history of diabetes m ellitus: Mother, Father(V18.0, Z83.3) Status:Active Unknown Family Member Name Dates Details Family history of glaucoma: Father(V19.11, Z83.511) Status:Active Family history of diabetes m ellitus: Mother, Father(V18.0, Z83.3) Status:Active Unknown Family Member Name Dates Details Family history of glaucoma: Father(V19.11, Z83.511) Status:Active Family history of diabetes m ellitus: Mother, Father(V18.0, Z83.3) Status:Active Relationship Condition Age at Onset Recorded Date/T kaykay father Amyotrophic lateral sclerosis Unknown Heart disease Unknown Not Specified Diabetes mellitus Unknown Unknown Family Member Name Dates Details Family history of glaucoma: Father(V19.11, Z83.511) Status:Active Family history of diabetes m ellitus: Mother, Father(V18.0, Z83.3) Status:Active Family history of cardiac di sorder: Father(V17.49, Z82.49) Status:Active Unknown Family Member Name Dates Details Family history of glaucoma: Father(V19.11, Z83.511) Status:Active Family history of diabetes m ellitus: Mother, Father(V18.0, Z83.3) Status:Active Family history of cardiac di sorder: Father(V17.49, Z82.49) Status:Active Relationship Condition Age at Onset Recorded Date/T kaykay father Amyotrophic lateral sclerosis Unknown Heart disease Unknown Unknown Not Specified Diabetes mellitus Unknown Unknown Family Member Name Dates Details Family history of glaucoma: Father(V19.11, Z83.511) Status:Active Family history of diabetes m ellitus: Mother, Father(V18.0, Z83.3) Status:Active Family history of cardiac di sorder: Father(V17.49, Z82.49) Status:Active Relationship Condition Age at Onset Recorded Date/T kaykay father Amyotrophic lateral sclerosis Unknown Heart disease Unknown Unknown Not Specified Diabetes mellitus Unknown father Unknown Relationship Condition Age at Onset Recorded Date/T kaykay father Amyotrophic lateral sclerosis Unknown Heart disease Unknown Unknown mother Diabetes mellitus Unknown father Unknown Advance Directives No Advanced Directives Records FoundDocuments on File Type Date Recorded 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 Advance Directives and Living Will Power of Tapper Balance Wheel Screw Hole Documents on File Type Date Recorded 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 anation Advance Directive(s) Advance Directive(s) 11/09/2020 6:23 AM Advance Directive(s) 09/28/2020 8:51 PM Advance Directive(s) 05/25/2020 3:00 PM Advance Directive(s) 12/30/2019 11:00 PM Advance Directive(s) 10/23/2019 3:21 PM Advance Directive(s) 10/23/2019 3:25 PM Advance Directive(s) 08/10/2019 4:21 PM Advance Directive(s) 07/10/2019 11:55 AM Advance Directive(s) 06/07/2019 12:23 PM Advance Directive(s) 06/06/2019 9:09 PM Advance Directive(s) 05/25/2019 10:01 PM Advance Directive(s) 05/16/2019 2:16 PM Advance Directive(s) 04/06/2019 11:46 PM Advance Directive(s) 03/27/2019 3:37 PM Advance Directive(s) 03/23/2019 3:47 PM Advance Directive(s) 03/11/2019 3:58 PM Advance Directive(s) 12/24/2018 8:31 PM Advance Directive(s) 12/07/2018 8:08 PM Advance Directive(s) 12/01/2018 12:19 AM Advance Directive(s) 10/20/2018 11:59 PM Advance Directive(s) 10/13/2018 11:15 AM Advance Directive(s) 10/05/2018 9:29 AM Advance Directive(s) 08/15/2018 3:08 PM Advance Directive(s) 07/26/2018 5:18 PM Advance Directive(s) 07/22/2018 2:42 PM Advance Directive(s) 05/26/2018 5:38 PM Latest Code Status on File Code Status Date Activated Date Inactivated Comments Full Code 11/12/2020 7:42 AM 11/12/2020 10:05 PM Full Code Order Discussed With: Patient Full Code 10/26/2019 3:29 PM 10/26/2019 6:42 PM Full Code 08/11/2019 10:46 AM 08/15/2019 6:10 PM Advance Directive Response Recorded Date/ Time Advance Directives No February 4:05pm Advance Directive Response Recorded Date/ Time Advance Directives No February 3:05pm Chief Complaint Patient here for 1 year follow-up.Patient here for 1 year follow-up.Patient here for 1 year follow-up.Patient here for 6 month follow-up with [facility]. She is 16 weeks Patient here for 6 month follow-up with [facility]. She is 16 weeks Patient presented today for a 6 month follow up. Chief Complaint and Reason for Visit Chief Complaint MHP Advanced materal age affecting ,antepartu vomiting, 10 wks preg Reason for Visit Advanced maternal ag e affecting , antepartum Anemia BMI 35.0-35.9,adult Depression First trimester History of induced hypertension Major depression Major depression with psychotic features PTSD (post-traumatic stress disorder) UTI (urinary tract infection) Chief Complaint anemia in . Chest pain,SOB,8 months 32 wk leakage Chief Complaint anemia in . Chest pain,SOB,8 months 32 wk leakage o99.810 Chief Complaint Chest pain,SOB,8 mon ths 32 wk leakage o99.810 anemia in . Chief Complaint Chest pain,SOB,8 mon ths 32 wk leakage o99.810 anemia in . request mental eval Chief Complaint Chest pain,SOB,8 mon ths 32 wk leakage o99.810 anemia in . request mental eval Reason for Visit Hallucinations History of induced hypertension Major depression with psychotic features Schizoaffective disorder Chief Complaint Chest pain,SOB,8 mon ths 32 wk leakage o99.810 anemia in . request mental eval 37 WK IUP contractions Reason for Visit Hallucinations History of induced hypertension Major depression with psychotic features Schizoaffective disorder Chiari malformation type I History of induced hypertension Chief Complaint Chest pain,SOB,8 mon ths 32 wk leakage o99.810 anemia in . request mental eval 37 WK IUP contractions iup 37 weeks Reason for Visit Hallucinations History of induced hypertension Major depression with psychotic features Schizoaffective disorder Chiari malformation type I History of induced hypertension Chief Complaint o99.810 anemia in . request mental eval Z36.85 37 WK IUP contractions iup 37 weeks IUP (Intrauterine ) MHP dizzy headache Reason for Visit Hallucinations History of induced hypertension Major depression with psychotic features Schizoaffective disorder Chiari malformation type I History of induced hypertension Schizoaffective disorder Auditory hallucination Depression with suicidal ideation Schizoaffective disorder Suicide ideation Chief Complaint 37 WK IUP contractio ns iup 37 weeks IUP (Intrauterine ) MHP dizzy headache abd pain n/v mhp Reason for Visit Chiari malformation type I History of induced hypertension Schizoaffective disorder Auditory hallucination Depression with suicidal ideation Schizoaffective disorder Suicide ideation Auditory hallucinations Chief Complaint iup 37 weeks IUP (Intrauterine ) MHP dizzy headache abd pain n/v [facility] Reason for Visit Schizoaffective diso rder Auditory hallucination Depression with suicidal ideation Schizoaffective disorder Suicide ideation Auditory hallucinations Gastroparesis Nausea & vomiting Schizoaffective disorder Chief Complaint dizzy headache abd pain n/v mhp BH mhp Reason for Visit Auditory hallucinati ons Gastroparesis Nausea & vomiting Schizoaffective disorder Chief Complaint dizzy headache abd pain n/v mhp [facility] Reason for Visit Auditory hallucinati ons Gastroparesis Nausea & vomiting Schizoaffective disorder Schizoaffective disorder Suicide ideation Chief Complaint [facility] Reason for Visit Auditory hallucinati ons Gastroparesis Nausea & vomiting Schizoaffective disorder Schizoaffective disorder Suicide ideation Chief Complaint mhp [facility] mri clearance N28.89 Reason for Visit Auditory hallucinati ons Gastroparesis Nausea & vomiting Schizoaffective disorder Schizoaffective disorder Suicide ideation Chief Complaint Amb Documentation TB, [facility] follow up, Chief Complaint Admit Date n28.89 May 30, 2024 3 :16pm Hematology f/u June 10, 2024 9:26am BH June 21, 2024 8:00am N28.89 July 04, 2024 1 :41pm Reason for Visit Admit Date Cervical radicular pain June 10, 024 9:26am Gastroparesis June 10, 2024 9:26am Reason for Referral Specialty Diagnoses / Procedures Referred By Contamrita t Referred To Contact Cardiology Diagnoses Pacemaker Sick sinus syndrome (CMS/HCC) Procedures Cardiac Device Check - Remote Rita Olivia MD [address] [place] [address] Referral ID Status Reason Start Date Expiration Date Visits Requested Visits Authorized [id number] Pending Review Perform Procedure 04/24/2023 04/23/2024 1 1 Additional Source Comments INFORMATION SOURCE (unrecogn ized section and content) DATE CREATED AUTHOR 05/13/2019 [facility] DATE CREATED AUTHOR AUTHOR'S ORGANIZ ATION 09/27/2019 [facility] DATE CREATED AUTHOR AUTHOR'S ORGANIZ ATION 02/11/2020 María Andrew [facility] DATE CREATED AUTHOR AUTHOR'S ORGANIZ ATION 11/18/2020 [facility] DATE CREATED AUTHOR AUTHOR'S ORGANIZ ATION 09/20/2021 [facility] DATE CREATED AUTHOR AUTHOR'S ORGANIZ ATION 10/31/[address] [facility] DATE CREATED AUTHOR AUTHOR'S ORGANIZ ATION 01/21/2023 [facility] DATE CREATED AUTHOR AUTHOR'S ORGANIZ ATION 01/22/2023 [facility] DATE CREATED AUTHOR AUTHOR'S ORGANIZ ATION 03/05/2023 [facility] DATE CREATED AUTHOR AUTHOR'S ORGANIZ ATION 11/06/2023 [facility] DATE CREATED AUTHOR AUTHOR'S ORGANIZ ATION 06/03/2024 [facility] DATE CREATED AUTHOR AUTHOR'S ORGANIZ ATION 07/08/2024 [facility] DATE CREATED AUTHOR AUTHOR'S ORGANIZ ATION 07/09/2024 [facility] DATE CREATED AUTHOR AUTHOR'S ORGANIZ ATION 07/10/2024 [facility] Source Comments (unrecognize d section and content) In the event this informatio n is protected by the Federal Confidentiality of Alcohol and Drug Abuse Patient Records regulations: The Federal rules restrict any use of the information to criminally investigate or prosecute any alcohol or drug abuse patient.[facility] the event this information is protected by the Federal Confidentiality of Alcohol and Drug Abuse Patient Records regulations: The Federal rules restrict any use of the information to criminally investigate or prosecute any alcohol or drug abuse patient.[facility] Reason for Visit (unrecogniz ed section and content) Reason Comments Patient Update Specialty Diagnoses / Procedures Referred By Contac t Referred To Contact Cardiology Diagnoses Pacemaker Sick sinus syndrome (CMS/HCC) Procedures Cardiac Device Check - Remote Rita Olivia MD [address] [facility], [address] [address] Referral ID Status Reason Start Date Expiration Date Visits Requested Visits Authorized [id number] Pending Review Perform Procedure 04/24/2023 04/23/2024 1 1 Specialty Diagnoses / Procedures Referred By Contac t Referred To Contact Cardiology Diagnoses Pacemaker Sick sinus syndrome (CMS/HCC) Procedures Cardiac Device [place] - [place] [id number] [place] [id number] Specialty Diagnoses / Procedures Referred By Contac t Referred To Contact Cardiology Diagnoses Pacemaker Sick sinus syndrome (Multi) Procedures Cardiac Device Check - Remote Rita Olivia MD [address] [facility] [place], [address] [address] Care Teams (unrecognized sec tion and content) Team Status: Active Member Role Status Dates Viktor Sotelo MD Primary Care Provider Active Team Status: Inactive Member Role Status Dates Viktor Sotelo MD Primary Care Provider Active Start: May 30, 2024 End: May 30, 2024 Estela Chung PA-C Attending Provider Active Start: May 30, 2024 End: May 30, 2024 Team Status: Active Member Role Status Dates Viktor Sotelo MD Primary Care Provider Active Start: June 02, 2024 Emy Lemus MD Attending Provider Active St art: June 02, 2024 Team Status: Inactive Member Role Status Dates Viktor Sotelo MD Primary Care Provide r, Attending Provider Active Start: June 10, 2024 End: June 10, 2024 Team Status: Active Member Role Status Dates Viktor Sotelo MD Primary Care Provider Active Start: June 21, 2024 Nimesh Cerda MD Attending Provider Active Start: June 21, 2024 Team Status: Inactive Member Role Status Dates Viktor Sotelo MD Primary Care Provider Active Start: July 04, 2024 End: July 04, 2024 Michael Viveros MD Attending Provider Active St art: July 04, 2024 End: July 04, 2024 Team Status: Active Member Role Status Dates Viktor Sotelo MD Primary Care Provider Active Start: October 26, 2023 Aida Mckeon PA-C Attending Provider Active Start: October 26, 2023 Team Status: Active Member Role Status Dates Viktor Sotelo MD Primary Care Provide r, Attending Provider Active Start: October 27, 2023 Team Status: Active Member Role Status Dates Viktor Sotelo MD Primary Care Provider Active Start: October 28, 2023 Lucero Guevara LPN Attending Provider Active S tart: October 28, 2023 Team Status: Active Member Role Status Dates Viktor Sotelo MD Primary Care Provider Active Start: October 29, 2023 Sujata Greenberg DO Attending Provider Active Start: October 29, 2023 Team Status: Active Member Role Status Dates Viktor Sotelo MD Primary Care Provider Active Start: November 09, 2023 Nimesh Cerda MD Attending Provider Active Start: November 09, 2023 Team Status: Inactive Member Role Status Dates Viktor Sotelo MD Primary Care Provide r, Attending Provider Active Start: November 12, 2023 End: November 12, 2023 Alterations Tailor Relationship Specialty Start Date End Date Viktor Sotelo MD [address] [place] [id number] PCP - General 10/18/13 Alterations Tailor Relationship Specialty Start Date End Date Viktor Sotelo MD [address] [place] [phone] PCP - General 10/18/13 Team Status: Inactive Member Role Status Dates Viktor Sotelo MD Primary Care Provider Active Cornell Mcnair MD Emergency Provider Active Eduardo Swain MD Admit Provider, Attending Provider Active Urbano Palma DO Other Provider Active Team Status: Inactive Member Role Status Dates Viktor Sotelo MD Primary Care Provider Active Raymond Oconnor PA-C Emergency Provider Active Team Status: Inactive Member Role Status Tash Sotelo MD Primary Care Provider Active Eduardo Swain MD Attending Provider Active Team Status: Inactive Member Role Status Dates Viktor Sotelo MD Primary Care Provider Active Delaney Carlisle DO Attending Provider Active Team Status: Inactive Member Role Status Dates Viktor Sotelo MD Primary Care Provider Active Michael Cerda , DO Emergency Provider Active Team Status: Active Member Role Status Tash Sotelo MD Primary Care Provider Active Urbano Palma , DO Attending Provider Active Team Status: Inactive Member Role Status Tash Sotelo MD Primary Care Provider Active Urbano Palma , DO Attending Provider Active Team Status: Active Member Role Status Tash Sotelo MD Primary Care Provider Active Michael Cerda , DO Emergency Provider Active Eduardo Swain MD Admit Provider, Attending Provider Active Team Status: Inactive Member Role Status Tash Sotelo MD Primary Care Provider Active Michael Cerda , DO Emergency Provider Active Eduardo Swain MD Admit Provider, Attending Provider Active Team Status: Inactive Member Role Status Tash Sotelo MD Primary Care Provider Active Dustin Cody MD Admit Provider, Attending Provider Active Team Status: Inactive Member Role Status Tash Sotelo MD Primary Care Provider Active Urbano Palma , DO Admit Provider, Attending Provider Active Team Status: Inactive Member Role Status Tash Sotelo MD Primary Care Provider Active Raffaele Ellsworth , DO Emergency Provider Active Toribio Cerda MD Admit Provider, Attending Pr ovider Active Team Status: Inactive Member Role Status Tash Sotelo MD Primary Care Provider Active Chelsie Cortez , NASCAR [employer]ER Emergency Provider Active Team Status: Active Member Role Status Tash Sotelo MD Primary Care Provider Active Keven Florentino , DO Emergency Provider Active Toribio Cerda MD Admit Provider, Attending Pr ovider Active Team Status: Inactive Member Role Status Tash Sotelo MD Primary Care Provider Active Keven Florentino , DO Emergency Provider Active Toribio Cerda MD Admit Provider, Attending Pr ovider Active Poonam Dejesus , BRANDIE Other Provider Active Glenis Palmer , RN Other Provider Active Katarina Garrett , RN Other Provider Active Georgia Arana , RN Other Provider Active Yola Orta , BRANDIE Other Provider Active Yisel Martin , BRANDIE Other Provider Active Magda Hurley MD Other Provider Active Eh Jennings MD Other Provider Active Urmila Paiz , NASCAR RACER Other Provider Active Mahad Mandel , DO Other Provider Active Luciano Pedro MD Other Provider Active Gerry Noble , DO Other Provider Active Mike Smart MD Other Provider Active Marylu Kemp MD Other Provider Active Afshan Hines , ANP-BC Other Provider Active Faby Watts MD Other Provider Active Mitesh Hoffman MD Other Provider Active Sintia Gan MD Other Provider Active Siobhan Zuniga MD Other Provider Active Dennis Espinoza , DO Other Provider Active Dawson Branham MD Other Provider Active Yossi Peterson MD Other Provider Active Gretta Maki , CRITICAL CARE CNS-C Other Provider Active Yonny Bazan MD Other Provider Active Trace Morataya MD Other Provider Active Dimitris Joe MD Other Provider Active Verona Waterman , DO Other Provider Active All Bloom , DO Other Provider Active Joe Holland , DO Other Provider Active Candice Roman , NASCAR RACER Other Provider Active Rosendo Holland , DO Other Provider Active Harriet Andrade MD Other Provider Active Chaparrita Mcnair , NASCAR RACER Other Provider Active Sheri Montana , NASCAR RACER Other Provider Active Genesis Pinedo RN Other Provider Active Team Status: Active Member Role Status Tash Sotelo MD Primary Care Provider Active Toribio Cerda MD Attending Provider Active Team Status: Active Member Role Status Tash Sotelo MD Primary Care Provider Active Ke Cage DO Emergency Provider Active Eduardo Swain MD Admit Provider, Attending Provider Active Team Status: Inactive Member Role Status Tash Sotelo MD Primary Care Provider Active Ke Cage DO Emergency Provider Active Eduardo Swain MD Admit Provider, Attending Provider Active Team Status: Inactive Member Role Status Tash Sotelo MD Primary Care Provider Active Michael Viveros MD Attending Provider Active Team Status: Inactive Member Role Status Tash Sotelo MD Primary Care Provider Active Ke Cage DO Emergency Provider Active Toribio Cerda MD Attending Provider Active Eduardo Swain MD Admit Provider Active Alterations Tailor Relationship Specialty Start Date End Date Viktor Sotelo MD PCP - General 03/02/20 Alterations Tailor Relationship Specialty Start Date End Date Viktor Sotelo MD PCP - General 03/02/20 Alterations Tailor Relationship Specialty Start Date End Date Viktor Sotelo MD [address] [place] [id number] PCP - General 03/02/20 Alterations Tailor Relationship Specialty Start Date End Date Viktor Sotelo MD [address] [place] [address] PCP - General 03/02/20 Alterations Tailor Relationship Specialty Start Date End Date Viktor Sotelo MD [address] [place] [address] PCP - General 03/02/20 Goals (unrecognized section and content) Goals may be documented in a n alternate sectionGoals may be documented in an alternate sectionGoals may be documented in an alternate sectionGoals may be documented in an alternate section No data available for this section No data available for this section No data available for this sectionGoals may be documented in an alternate section No data available for this section No data available for this section No data available for this sectionGoals may be documented in an alternate section No data available for this section FOR RECORDS PERTAINING TO PATIENTS WHO ARE OR HAVE BEEN ENROLLED IN A CHEMICAL DEPENDENCY/SUBSTANCEABUSE PROGRAM, SOME INFORMATION MAY BE OMITTED. This clinical summary was aggregated from multiple sources. Caution should be exercised in using it in the provision of clinical care. This summary normalizes information from multiple sources, and as a consequence, information in this document may materially change the coding, format and clinical context of patient data. In addition, data may be omitted in some cases. CLINICAL DECISIONS SHOULD BE BASED ON THE PRIMARY CLINICAL RECORDS. [facility]. provides no warranty or guarantee of the accuracy or completeness of information in this document.
[2024-07-11 06:51] VITALS: BP 138/95; PULSE 95; TEMP 36.9; O2SAT 98
[2024-07-11 07:05] LABS: INR 0.98; Prothrombin Time 10.4 sec (9.0-11.6)
[2024-07-11 07:09] LABS: HCG Qualitative NEGATIVE (NEGATIVE); Internal Control Within Normal Limits
[2024-07-11] MEDS: 0.9 % SODIUM CHLORIDE 500 ML 50 ML IV (07:31)
--- NOTE | 2024-07-11 07:44 | W.PM.PROCNOT ---
Date of procedure: 07/11/24 Pre-op diagnosis: Chronic abdominal pain Post-op diagnosis: same as pre-op Procedure: Procedure: Celiac plexus block Medications: Bupivacaine 0.25% 4cc, normal saline 0.9% 5cc, depomedrol 40mg x2 I explained the details of the procedure to the patient including the risks, benefits and alternatives. We had an informed discussion and the patient verbalized understanding and signed the consent form. All questions were answered appropriately.? ? The patient was brought the procedure room and placed in the prone position on a fluoroscopy table. Intravenous sedation was provided. Monitoring of blood pressure, ECG, and pulse oximetry was obtained. Supplemental oxygen was provided. Patient was prehydrated with 0.5 L NS prior to the procedure through IV.? ? The T12-L1 vertebrae were marked under fluoroscopic guidance. The back was prepped with sterile Betadine in the usual fashion x 3 and sterilely draped. Skin infiltration was performed with local anesthetic. Then using a bilateral technique, separate 25 gauge 5 inch needles were directed under fluoroscopic guidance to the anterior superior aspect of the L1 vertebral body with oblique, AP and lateral view. 4.0 mL of contrast dye Omnipaque 240 was injected through each needle. Then once proper position was confirmed with AP and lateral fluoroscopic imaging and non intravascular spread of the contrast, 10 mL of the above solution was instilled through each needle. [place] were removed. The patient was observed for an appropriate amount of time and discharged in stable condition. Anesthesia: SONU Surgeon: Tete Snell Pathology: none sent Condition: stable Disposition: no change
[2024-07-11] MEDS: 0.9 % SODIUM CHLORIDE 10 ML INJ (07:45)
[2024-07-11] MEDS: BUPIVACAINE HCL 0.25% PF 25 MG/10 ML VIAL 8 ML INJ (07:45)
[2024-07-11] MEDS: LIDOCAINE HCL 2% PF 100 MG/5 ML VIAL 2 ML INJ (07:46)
[2024-07-11] MEDS: METHYLPREDNISOLONE ACETATE 40 MG/ML VIAL 80 MG INJ (07:46)
[2024-07-11] MEDS: IOHEXOL 240 MG/ML - 10 ML VIAL 36 MG INJ (07:46)
[2024-07-11 07:47] VITALS: BP 126/85; PULSE 71; TEMP 36.3; O2SAT 99
[2024-07-11 07:53] VITALS: BP 126/86; PULSE 69; O2SAT 96
== END 2024-07-11 08:12 | disposition home or self-care (01) ==
PROVIDERS: PCP Family Medicine; Visit Provider Anesthesiology
PROC: (CPT 1992; principal; 2024-07-11 07:30)
DX: R10.84 Generalized abdominal pain (principal)
CPT/HCPCS: 36415; 64530; 84703; 85610; J0665; J1010; J2704; Q9966

== ENCOUNTER 2024-07-25 02:22 | Outpatient (RCR) | payer MEDICARE, MEDICAID, SELFPAY | END 2024-08-19 13:17 | disposition home or self-care (01) | LOC: MM 02:22 | PROVIDERS: PCP Family Medicine; Visit Provider Internal Medicine | DX: Z51.81 Encounter for therapeutic drug level monitoring (principal); Z79.01 Long term (current) use of anticoagulants; I82.409 Acute embolism and thrombosis of unspecified deep veins of unspecified lower extremity ==

== ENCOUNTER 2024-07-25 12:40 | Outpatient (OUT) | payer MEDICARE, MEDICAID, SELFPAY ==
--- NOTE | 2024-07-25 13:18 | P.CN_ITS ---
Consult Note: HPI Data of Consult Patient: known to practice within the last 3 years Consult date: 07/25/24 Requesting Physician: Tete Snell MD Primary Care Provider: Sharyn Bradford MD Consult Narrative Reason for consult: neck pain, bilateral arm pain Narrative: 43yof who presents for assessment. she notes improvement in her abdominal pain after her recent celiac plexus block. continues to have neck pain with radiation into bilateral upper extremities. had tried to obtain cervical mri for assessment, but was denied because of lack of physical therapy. physical therapy was ordered and patient attended first session, but she was told that given her chiari malformation, it was too risky for them to proceed with any further cervical therapy. tried gabapentin 300mg tid, but did not find very effective. denies adverse med side effects. cc:: CC: Tete Snell MD Review of Systems ROS Status of ROS 10 or more systems reviewed and unremark able except as noted in history and below [facility] Medical History Hypertension ?I10 - Essential (primary) hypertension (ICD-10) Schizophrenia ?F20.9 - Schizophrenia, unspecified (ICD-10) DVT (deep venous thrombosis) ?I82.409 - Acute embolism and thrombosis of unspecified deep veins of unspecified lower extremity (ICD-10) Obesity ?E66.9 - Obesity, unspecified (ICD-10) Pacemaker ?Z95.0 - Presence of cardiac pacemaker (ICD-10) Sick sinus syndrome due to SA node dysfunction ?I49.5 - Sick sinus syndrome (ICD-10) Gastroparesis ?K31.84 - Gastroparesis (ICD-10) Surgical History S/P reconstruction of ligament of knee ?Z98.890 - Other specified postprocedural states (ICD-10) History of cholecystectomy ?Z90.49 - Acquired absence of other specified parts of digestive tract (ICD- 10) Hx of appendectomy ?Z90.49 - Acquired absence of other specified parts of digestive tract (ICD- 10) Social History Within the past year, how often did you have a drink containing alcohol: never Score interpretation: A score less than 3 is consistent with normal alcohol consumption. Smoking status: Never smoker Non-prescribed substance use: denies use Highest level of school completed/degree received: high school graduate Are you now , , , , never or living with a partner: living with partner Little interest or pleasure in doing things: not at all Feeling down, depressed, or hopeless: not at all Feel stressed/tense/nervous/anxious/difficulty sleeping: only a little Life stressor details: new baby at age of 42 Do you think of yourself as: straight/heterosexual Gender Identity: female Meds Home Medications and Allergies Home Medications ?Medication ?Instructions ?Recorded ?Confirmed ?Type aripiprazole 30 mg tablet 30 mg PO DAILY 10/26/23 07/11/24 History benztropine 1 mg tablet 1 mg PO BID 10/26/23 07/11/24 History metoprolol succinate 25 mg 25 mg PO DAILY 10/26/23 07/11/24 History tablet,extended release 24 hr mirtazapine 15 mg tablet 15 mg PO .HS 10/26/23 07/11/24 History olanzapine 5 mg tablet 5 mg PO .qd PRN hallucinations 10/26/23 07/11/24 History paliperidone palmitate 234 mg/1.5 234 mg IM Q30D 10/26/23 07/11/24 History mL intramuscular syringe (Invega Sustenna) venlafaxine 150 mg 150 mg PO DAILY 10/26/23 07/11/24 History capsule,extended release 24 hr warfarin 5 mg tablet 5 mg PO DAILY 03/21/24 07/11/24 History enoxaparin subcut 07/11/24 History gabapentin 400 mg capsule 400 mg PO TID #90 caps 07/25/24 Rx Allergies Allergy/AdvReac Type Severity Reaction Status Date / Time hydromorphone (From Dilaudid) Allergy Mild itching Verified 07/11/24 07:00 Exam Narrative Exam Narrative: Psych-alert and oriented x 3.? Attentive and appropriate, constitutionally normal, displays normal mood and affect per situation.? There are no obvious deficits in memory, reasoning, or intellect.? Skin-no obvious rashes, bruising, or erythema noted to the patient's area of pain.? Extremities-upper extremities are warm with minimal edema and palpable pulses. Cervical- tenderness to palpation noted in the cervical spine and paraspinal musculature.? Pain is elicited with flexion, extension, and lateral rotation of the cervical spine.? Range of motion is diminished due to pain. Facet loading maneuvers are positive.? Strength-unremarkable and within normal limits with the exception to the bilateral biceps, triceps. Sensory-no notable sensory deficits in the bilateral upper extremities to touch or pinprick with the exception to decreased sensation to the bilateral C4, 5, 6 dermatomal distribution.? Coordination remains intact.? Gait remains non-antalgic. Assessment and Plan Assessment and Plan (1) Cervical stenosis of spinal canal: Plan 43yof who presents for assessment. glad that she had relief after recent celiac plexus block. discussed that if pain were to worsen in future, could consider repeating. she expressed understanding. in terms of neck pain with bilateral upper extremity radiation, we will obtain cervical mri without contrast. unable to complete any formal physical therapy after assessment by physical therapist due to chiari malformation, as outlined above. she is in agreement. meds reviewed. will increase gabapentin to 400mg tid. follow up after imaging.
== END 2024-07-25 12:41 | disposition home or self-care (01) ==
PROVIDERS: PCP Family Medicine; Visit Provider Anesthesiology
DX: M48.02 Spinal stenosis, cervical region (principal)
CPT/HCPCS: G0463

== ENCOUNTER 2024-08-21 07:48 | Outpatient (RCR) | payer MEDICARE, MEDICAID, SELFPAY | END 2024-09-16 13:21 | disposition home or self-care (01) | LOC: MM 07:48 | PROVIDERS: PCP Family Medicine; Visit Provider Internal Medicine | DX: Z51.81 Encounter for therapeutic drug level monitoring (principal); Z79.01 Long term (current) use of anticoagulants; I26.99 Other pulmonary embolism without acute cor pulmonale | CPT/HCPCS: 85610; G0463 ==

== ENCOUNTER 2024-08-30 07:36 | Outpatient (RCR) | payer MEDICARE, MEDICAID, SELFPAY | END 2024-09-19 23:59 | disposition home or self-care (01) | LOC: HEMC 07:36 | PROVIDERS: PCP Family Medicine; Visit Provider Internal Medicine Hematology & Oncology | DX: D68.69 Other thrombophilia (principal); D64.9 Anemia, unspecified; K90.9 Intestinal malabsorption, unspecified; I82.402 Acute embolism and thrombosis of unspecified deep veins of left lower extremity; D50.9 Iron deficiency anemia, unspecified; I26.99 Other pulmonary embolism without acute cor pulmonale; D51.9 Vitamin B12 deficiency anemia, unspecified; Z98.84 Bariatric surgery status; Z95.0 Presence of cardiac pacemaker | CPT/HCPCS: G0463 ==

== ENCOUNTER 2024-09-15 08:11 | Outpatient (OUT) | payer MEDICARE, MEDICAID, SELFPAY ==
--- NOTE | 2024-09-15 08:34 | P.CN_ITS ---
Consult Note: HPI Data of Consult Patient: known to practice within the last 3 years Requesting Physician: Yareli Phillips NP Primary Care Provider: Sharyn Bradford MD Consult Narrative Reason for consult: neck pain, bilateral arm pain Narrative: 43yof who presents for assessment. continues to have neck pain with radiation into bilateral upper extremities. recently underwent cervical MRI which is consistent with her symptoms as noted below. physical therapy was ordered and patient attended first session, but she was told that given her chiari malformation, it was too risky for them to proceed with any further cervical therapy. tried gabapentin 400mg TID with mild benefit. denies adverse med side effects. continues to utilize otc tylenol PRN. cc:: CC: Yareli Phillips NP Review of Systems ROS Status of ROS 10 or more systems reviewed and unremark able except as noted in history and below Musculoskeletal Reports: neck pain and extremity pain PFSH PFSH Medical History Hypertension ?I10 - Essential (primary) hypertension (ICD-10) Schizophrenia ?F20.9 - Schizophrenia, unspecified (ICD-10) DVT (deep venous thrombosis) ?I82.409 - Acute embolism and thrombosis of unspecified deep veins of unspecified lower extremity (ICD-10) Obesity ?E66.9 - Obesity, unspecified (ICD-10) Pacemaker ?Z95.0 - Presence of cardiac pacemaker (ICD-10) Sick sinus syndrome due to SA node dysfunction ?I49.5 - Sick sinus syndrome (ICD-10) Gastroparesis ?K31.84 - Gastroparesis (ICD-10) Surgical History S/P reconstruction of ligament of knee ?Z98.890 - Other specified postprocedural states (ICD-10) History of cholecystectomy ?Z90.49 - Acquired absence of other specified parts of digestive tract (ICD- 10) Hx of appendectomy ?Z90.49 - Acquired absence of other specified parts of digestive tract (ICD- 10) Social History Within the past year, how often did you have a drink containing alcohol: never Score interpretation: A score less than 3 is consistent with normal alcohol consumption. Smoking status: Never smoker Non-prescribed substance use: denies use Highest level of school completed/degree received: high school graduate Are you now , , , , never or living with a partner: living with partner Little interest or pleasure in doing things: not at all Feeling down, depressed, or hopeless: not at all Feel stressed/tense/nervous/anxious/difficulty sleeping: only a little Life stressor details: new baby at age of 42 Do you think of yourself as: straight/heterosexual Gender Identity: female Meds Home Medications and Allergies Home Medications ?Medication ?Instructions ?Recorded ?Confirmed ?Type aripiprazole 30 mg tablet 30 mg PO DAILY 10/26/23 07/11/24 History benztropine 1 mg tablet 1 mg PO BID 10/26/23 07/11/24 History metoprolol succinate 25 mg 25 mg PO DAILY 10/26/23 07/11/24 History tablet,extended release 24 hr mirtazapine 15 mg tablet 15 mg PO .HS 10/26/23 07/11/24 History olanzapine 5 mg tablet 5 mg PO .qd PRN hallucinations 10/26/23 07/11/24 History paliperidone palmitate 234 mg/1.5 234 mg IM Q30D 10/26/23 07/11/24 History mL intramuscular syringe (Invega Sustenna) venlafaxine 150 mg 150 mg PO DAILY 10/26/23 07/11/24 History capsule,extended release 24 hr warfarin 5 mg tablet 5 mg PO DAILY 03/21/24 07/11/24 History enoxaparin subcut 07/11/24 History gabapentin 400 mg capsule 400 mg PO TID #90 caps 07/25/24 Rx Allergies Allergy/AdvReac Type Severity Reaction Status Date / Time hydromorphone (From Dilaudid) Allergy Mild itching Verified 07/11/24 07:00 Exam Constitutional Documenting provider has reviewed patient's vital signs: yes Common normals: no apparent distress, oriented x3, healthy appearing, alert and well nourished General appearance: cooperative HENMT Common normals: normocephalic, hearing grossly normal bilaterally and moist oral mucous membranes Head and scalp: normocephalic Eye Common normals: PERRL Pupil: PERRL Neck & C-Spine Common normals: full ROM General: normal visual inspection Cervical spine: cervical ROM abnormal, pain with cervical ROM and cervical spine tenderness Other: positive spurlings decreased sensation bilateral C4,5,6 strength 4/5 in BUE positive facet tenderness C3-6, positive facet loading Chest Common normals: inspection of chest normal Respiratory Common normals: normal respiratory effort, no retractions and no use of accessory muscles Neuro Common normals: oriented x3, CN's II-XII intact bilaterally, moves all extremities, no focal motor deficits, no sensory deficits noted and deep tendon reflexes 2+ bilaterally Sensorium/orientation: alert Motor exam: no movement abnormalities noted Psych Common normals: mental status grossly normal, thought process normal, cooperative, affect normal, speech normal and activity/motor behavior normal Speech: normal speech Thought process: normal thought process Results Imaging Cervical MRI : Attestation: I have reviewed the pertinent imaging results. Radiologist's impression: C2-5 no significant disease, central canal, neural foramen identified. mild multilevel facet arthropathy. left C4-5 adjacent perifacet edema and trace edema C5-6 minimal broad based disc bulge with minimal canal narrowing with mild facet arthropathy Assessment and Plan Assessment and Plan (1) Cervical stenosis of spinal canal: Assessment and Plan: CLAUDIA 28% with moderate to severe pain impacting ADLs, sleep, social life, travel (2) Cervical radiculopathy: (3) Chiari malformation type I: (4) Cervical spondylosis: Plan 43 year old female who has failed conservative medications, heat, ice, and unable to perform PT due to chiari malformation. recently underwent cervical MRI with results confirming cervical stenosis, radiculopathy, and spondylosis. at this time increase gabapentin 600mg TID, risks vs benefits reviewed. oarrs reviewed, missing fill from pharmacy for gabapentin 400mg TID but pt reports thats what shes currently taking and tolerating. proceed with bilateral C5-6 TFESI under fluoroscopy, may consider bilateral C4-5 TFESI as well. f/u 2 weeks after injection for evaluation.
--- OUTSIDE RECORDS SUMMARY | 2024-09-15 08:35 | XMS_ITS | CCD ---
Author Organization [facility] Care Team Providers Care Loss Prevention Investigator Name Role Phone Unavailable Primary Care Provider UnavailROSELINE Johnson Referring Unavailable Viktor Sotelo Unavailable Viktor Sotelo MD Primary Care Provider MD Viktor Sotelo Primary Care Provider MD Cornell Mcnair Emergency Provider MD Eduardo Swain Admit Provider MD Eduardo Swain Attending Provider DO Urbano Palma Other Provider OSVALDO Oconnor Emergency Provider MD Viktor Sotelo Primary Care Provider DO Urbano Palma Attending Provider DO Michael Cerda Emergency Provider DO Delaney Carlisle Attending Provider MD Viktor Sotelo Primary Care Provider DO Urbano Palma Attending Provider MD Eduardo Swain Admit Provider [phone] MD Eduardo Swain Attending Provider [phone] Unavailable Unavailable MD Dustin Cody Admit Provider MD Dustin Cody Attending Provider VIKTOR SOTELO Primary Care Physician MD Viktor Sotelo Primary Care Provider DO Urbano Palma Attending Provider Parminderlorene DO Michael Murrieta Emergency Provider MD Eduardo Swain Admit Provider MD Eduardo Swain Attending Provider MD Dustin Cody Admit Provider MD Dustin Cody Attending Provider ViscDO Urbano lazar Admit Provider DO Raffaele Ellsworth Emergency Provider MD Toribio Cerda Admit Provider [phone] MD Toribio Cerda Attending Provider [phone] MD Viktor Sotelo Primary Care Provider Louie DO Clement Attending Provider Parminderlorene DO Rodriguez M Emergency Provider DUANE Cortez Emergency Provider DO Keven Florentino Emergency Provider [phone] CANDICE ., KRISTA Admitting Unavailable KRISTA ANTONIO Consulting Unavailable KRISTA ANTONIO Attending Unavailable DR VIKTOR SOTELO Primary Care Unavailable DR VIKTOR SOTELO Primary Care Unavailable ALYSSA ZHANG Admitting Unavailable ALYSSA ZHANG Consulting Unavailable ALYSSA ZHANG Attending Unavailable MD Viktor Sotelo Primary Care Provider BRANDIE Dejesus Other Provider Unavailable BRANDIE Palmer Other Provider Unavailable BRANDIE Garrett Other Provider Unavailable BRANDIE Arana Other Provider Unavailable BRANDIE Orta Other Provider Unavailable BRANDIE Martin Other Provider Unavailable MD Magda Hurley Other Provider MD Eh Jennings Other Provider DUANE Paiz Other Provider DO Mahad Mandel Other Provider MD Luciano Pedro Other Provider [phone] DO Gerry Noble Other Provider MD Mike Smart Other Provider MD Marylu Kemp Other Provider Donny, ANP-BC Afshan Other Provider [phone] MD Faby Watts Other Provider [phone] MD Mitesh Hoffman Other Provider MD Sintia Gan Other Provider MD Siobhan Zuniga Other Provider DO Dennis Espinoza Other Provider MD Dawson Branham Other Provider MD Yossi Peterson Other Provider Glynn, VOLUNTEER SERVICES SPECIALIST-C Gretta Helms Other Provider MD Yonny Bazan Other Provider MD Trace Morataya Other Provider MD Dimitris Joe Other Provider DO Verona Waterman Other Provider DO All Bloom Other Provider [phone] DO Joe Holland Other Provider DUANE Roman Other Provider DO Rosendo Holland Other Provider MD Harriet Andrade Other Provider [phone] DUANE Mcnair Other Provider [phone] DUANE Montana Other Provider Shahida, BRANDIE Hurtado Other Provider Unavailable MD Viktor Sotelo Primary Care Provider [phone] MD Toribio Cerda Admit Provider MD Toribio Cerda Attending Provider DO Ke Cage Emergency Provider [phone] MD Eduardo Swain Admit Provider [phone] MD Eduardo Swain Attending Provider [phone] MD Michael Viveros Attending Provider Sanchez, Dr. Viktor Pack Primary Care Unav ailable Ne, Dr. Rita Ahumada Attending Unavailab le Sanchez, Dr. Viktor Pack Primary Care Unav ailable Ne, Dr. Rita Ahumada Attending Unavailab le Sanchez, Dr. Viktor Pack Primary Care Unav ailable Ne, Dr. Rita Ahumada Attending Unavailab le Ne, Dr. Rita Ahumada Referring Unavailab le Ne, Dr. Rita Ahumada Attending Unavailab huma Sotelo, Dr. Viktor Pack Primary Care Unav [...] e Sotelo, Dr. Viktor Pack Primary Care UnaViktor Logan MD Primary Care Provider Unavailable Viktor Sotelo MD Primary Care Provider [phone] Viktor Sotelo MD Primary Care Provider [phone] VIKTOR SOTELO Primary Care Unavailable JESSE SIMS Attending Unavailable LEMUEL RENTERIA Admitting Unavailable MARKER, USJATA Referring Unavailable TONYA JACOBS Consulting Unavailable GILBERTO LOCKHART Consulting Unavailable RAYMOND ORTIZ Consulting Unavailable MD Viktor Sotelo Primary Care Provider [phone] MD Nimesh Cerda Attending Provider Viktor Sotelo MD Primary Care Provider Vikotr Sotelo MD Primary Care Provider Estela Chung PA-C Attending Provider Nimesh Cerda MD Attending Provider Michael Viveros MD Attending Provider Michael VIVEROS Referring Unavailable ESTELA CHUNG Attending Unavailable SHELDONESTELA GALLEGOS Attending Unavailable SHELDONESTELA GALLEGOS Attending Unavailable Michael VIVEROS R Admitting Unavailable Michael VIVEROS Attending Unavailable Michael VIVEROS Referring Unavailable ESTELA CHUNG Attending Unavailable Giedraitis , Andrius Susanytdelfino Attending Unavailable Giedraitis , Andrius Vytautnico Attending Unavailable Giedraitis , Andrius Vytautnico Attending Unavailable Viktor Sotelo MD Primary Care Provider Michael Viveros MD Attending Provider Nimesh Cerda MD Attending Provider Gijuju PATINO, Andri Attending Provider Viktor Sotelo Primary Care Unavailable Giedraitis, Andrius Attending Unavailable Giedraitis, Andrius Admitting Unavailable Viktor Sotelo E Primary Care Unavailable Giedraitis, Andrius Attending Unavailable Giedraitis, Andrius Admitting Unavailable Sanchez Viktor E Primary Care Unavailable Nimesh Cerda Attending Unavailab le Zaida, Nimesh Admitting Unavailab le Sanchez Viktor E Primary Care Unavailable Michael Viveros Attending Unavailable Michael Viveros Admitting Unavailable Estela Chung Attending Unavailable Sheldon, Estela E Admitting Unavailable Sotelo, Viktor E Primary Care Unavailable NE, RITA J Referring Unavailable SOTELO, VIKTOR E Primary Care Unavailable NE, RITA J Referring Unavailable SOTELO, VIKTOR E Primary Care Unavailable NE, RITA J Referring Unavailable SOTELO, VIKTOR E Primary Care Unavailable NE, RITA J Referring Unavailable SOTELO, VIKTOR E Primary Care Unavailable Allergies Allergy Classification Reported Allergen(s) Allergy Type Date of Onset Reaction(s) Facility (20 sources) HYDROmorphone; 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: [Dilaudid] Drug Allergy 9 Itching (finding), Unknown (qualifier value), Itching, Unknown [facility] (2 sources) HYDROmorphone Drug Allergy 9 Itching [facility] (19 sources) HYDROmorphone; 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: [HYDROmorphone] Drug Allergy 9 Itching [facility] (1 source) HYDROmorphone Drug Allergy [facility] (1 source) Fluarix (PF) Drug allergy (disorder) 2 [facility] Medications Current Medications Medication Drug Class(es) Dates Sig (Normalized) Sig (Original) ARIPiprazole 30 mg oral tablet (20 sources) Atypical Antipsychotic Start: 09-03-2022 take 1 tablet by mouth once daily ARIPiprazole (Abilify) 30 mg tablet Take 1 tablet (30 mg) by mouth once daily. 09/03/2022 Active Start: 08-02-2022 End: 09-03-2022 Aripiprazole (Abilify) 20 mg tablet Discontinued 30 MG PO Daily August 02, 2022 7:37am September 03, 2022 11:31pm Start: 07-17-2022 End: 08-02-2022 take 1 tablet by mouth once daily Aripiprazole 20 mg Tablet Discontinued 20 MG PO Daily July 17, 2022 1:00am August 02, 2022 7:37am Start: 12-11-2021 End: 07-17-2022 take 1 tablet by mouth once daily Aripiprazole 15 mg Tablet Discontinued 15 MG PO Daily December 11, 2021 12:00am July 17, 2022 1:16pm Start: 11-05-2021 End: 12-11-2021 take 1 tablet by mouth once daily Aripiprazole 2 mg Tablet Discontinued 2 MG PO Daily November 05, 2021 12:00am December 11, 2021 11:22am Start: 10-13-2021 End: 12-11-2021 take 1 tablet by mouth once daily Aripiprazole 10 mg Tablet Discontinued MG PO Daily October 13, 2021 12:00am December 11, 2021 11:22am Start: 09-04-2021 End: 10-13-2021 take 1 tablet by mouth once daily Aripiprazole 20 mg Tablet Discontinued 20 MG PO Daily September 04, 2021 12:00am October 13, 2021 10:16am Start: 08-31-2021 End: 09-04-2021 take 3 tablets by mouth once daily Aripiprazole (Abilify) 5 mg tablet Discontinued 15 MG PO Daily August 31, 2021 6:36pm September 04, 2021 1:08pm Start: 07-15-2021 End: 08-31-2021 take 1 tablet by mouth once daily Aripiprazole 5 mg Tablet Discontinued 5 MG PO Daily July 15, 2021 1:00am August 31, 2021 6:36pm benztropine mesylate 0.5 mg oral tablet (7 sources) Anticholinergic, Antihistamine Start: 12-15-2022 take 1 tablet by mouth twice daily Benztropine 0.5 mg Tablet Active 0.5 MG PO Twice daily December 15, 2022 12:00am ciprofloxacin 500 mg oral tablet (20 sources) Quinolone Antimicrobial Start: 06-02-2024 Cipro 500 mg Tab See Instructions, 1 tab po night prior to cysto. 1 tab po following cysto., # 2 tab(s), Refills(s) 0, Pharmacy: [facility]/pharmacy #[id number], 167, cm, 04/28/23 10:12:00 EST, Height/Length Dosing, 111, kg, 04/28/23 10:12:00 EST, Weight Dosing Start Date: 06/02/24 Status: Ordered Start: 03-03-2019 End: 03-05-2019 take [id number] mg by mouth every twelve hours Ciprofloxacin Hcl 500 mg tablet Discontinued 500 MG PO Twice daily March 03, 2019 12:00am March 05, 2019 4:30pm 1 Tablet by mouth every 12 hours STOP DATE 03/04 24 hr metoprolol succinate 25 mg extended release oral tablet (7 sources) beta-Adrenergic Priti Start: 01-20-2023 take 1 tablet by mouth once daily metoprolol succinate XL (Toprol-XL) 25 mg 24 hr tablet Take 1 tablet (25 mg) by mouth once daily. 01/20/2023 Active mirtazapine 15 mg oral tablet (20 sources) Start: 12-15-2022 take 1 tablet by mouth once daily at bedtime mirtazapine (Remeron) 15 mg tablet Take 1 tablet (15 mg) by mouth once daily at bedtime. 04/14/2023 Active Start: 12-09-2021 End: 12-11-2022 take 1 tablet by mouth at bedtime Mirtazapine (Remeron) 15 mg tablet Discontinued 15 MG PO Bedtime December 09, 2021 12:00am December 11, 2022 9:36pm ondansetron 4 mg disintegrating oral tablet (20 sources) Serotonin-3 Receptor Antagonist Start: 06-10-2024 take 1 tablet by mouth every eight hours Ondansetron 4 mg tablet,disintegrating Active 4 MG PO Q8H June 10, 2024 1:00am Start: 10-18-2022 End: 11-12-2023 take 1 tablet by mouth three times daily as needed for nausea Ondansetron 4 mg tablet,disintegrating Discontinued 4 MG PO Three times daily as needed for Nausea October 28, 2022 8:50pm November 12, 2023 1:30pm Start: 08-25-2019 End: 02-18-2020 take 1 tablet by mouth every six hours as needed for nausea Ondansetron 4 mg Tablet,Disintegrating Discontinued 4 MG PO Q6H as needed for Nausea August 25, 2019 1:00am February 18, 2020 5:45pm Start: 05-26-2019 End: 08-12-2022 take 1 tablet by mouth every four hours as needed for nausea and vomiting Ondansetron 4 mg Tablet,Disintegrating Discontinued 4 MG PO Every 4 hours as needed for Nausea And Vomiting December 11, 2021 12:00am August 12, 2022 1:21pm Start: 11-15-2013 Zofran Oral, S ee Instructions, Refills(s) 0, Nausea/Vomiting Start Date: 11/15/13 Status: Ordered Comment on above: Take 1 tablet by tejas every 4 hours as needed for Nausea/Vomiting. 1.5 ml paliperidone palmitate 156 mg/ml prefilled syringe (20 sources) Atypical Antipsychotic Start: 04-06-2023 Invega Sustenna 234 mg/1.5 mL syringe Inject 1.5 mL (234 mg) into the muscle. 04/06/2023 Active Start: 12-11-2022 Paliperidone P almitate (Invega Sustenna) 234 mg/1.5 mL syringe Active 234 MG IM Q28D December 11, 2022 12:00am Start: 09-07-2022 End: 12-15-2022 take 1 tablet by mouth twice daily Paliperidone 3 mg T ablet Extended Release 24 Hr Discontinued 3 MG PO Twice daily September 07, 2022 12:00am December 15, 2022 11:02am Start: 09-07-2022 End: 12-11-2022 Paliperidone Palmitate (Inve ga Sustenna) 156 mg/mL Syringe Discontinued 156 MG IM Q28D 07 21September 07, 2022 12:00am December 11, 2022 9:27pm Start: 09-03-2022 End: 09-07-2022 take 1 tablet by mouth once daily in the morning Paliperidone (Invega) 3 mg Tablet Extended Release 24 Hr Discontinued 3 MG PO Every morning September 03, 2022 12:00am September 07, 2022 12:05pm Start: 10-13-2021 End: 11-01-2021 take 1 tablet by mouth once daily at bedtime Paliperidone 6 mg Tablet Extended Release 24 Hr Discontinued 6 MG PO Daily at bedtime October 13, 2021 12:00am November 01, 2021 10:23am Start: 10-13-2021 End: 01-20-2022 inject 156 mg by intramuscular injection once Paliperidone Palmitate (Invega Sustenna) 156 mg/mL Syringe Discontinued 156 MG IM Once 1 October 13, 2021 12:00am January 20, 2022 3:48pm traZODone hydrochloride 50 mg oral tablet (20 sources) Serotonin Reuptake Inhibitor Start: 09-03-2022 take 1 tablet by mouth once daily at bedtime traZODone (Desyrel) 50 mg tablet Take 1 tablet (50 mg) by mouth once daily at bedtime. 09/03/2022 Active Start: 07-02-2022 Trazodone 50 m g tablet Active 75 MG PO Daily at bedtime as needed for Insomnia July 02, 2022 10:24am Start: 07-02-2022 take 75 mg by mouth once daily at bedtime Trazodone Active 75 MG PO Daily at bedtime July 02, 2022 10:24am Start: 07-15-2021 End: 07-02-2022 take 1 tablet by mouth once daily at bedtime as needed Trazodone 50 mg Tablet Discontinued 50 MG PO Daily at bedtime as needed for Insomnia October 13, 2021 12:00am July 02, 2022 10:24am warfarin sodium 5 mg oral tablet (3 sources) Vitamin K Antagonist Start: 06-10-2024 take 1 tablet by mouth once daily Warfarin 5 mg tablet Active 5 MG PO Daily June 10, 2024 1:00am Completed/Discontinued Medications Medication Drug Class(es) Dates Sig (Normalized) Sig (Original) acetaminophen 500 mg oral tablet (13 sources) Start: 08-13-2022 End: 09-03-2022 take 2 tablets by mouth every six hours Acetaminophen 500 mg Tablet Discontinued 1000 MG PO Q6H August 13, 2022 1:00am September 03, 2022 7:38pm Start: 08-13-2022 End: 09-03-2022 take 1000 mg [...] tablet (20 sources) Opioid Agonist Start: End: take 1 tablet by mouth every six hours as needed for pain Hydrocodone-Acetamino phen 5-325 mg tablet Discontinued 1 TAB PO Q6H as needed for pain 8 December 13, 2020 June 14, 2021 11:35am Start: 02-18-2020 End: 06-14-2021 take 1 tablet by mouth twice daily as needed for pain Hydrocodone-Acetaminophen 5-325 mg Table t Discontinued 1 TAB PO Twice daily as needed for Pain February 18, 2020 12:00am June 14, 2021 11:35am acetaZOLAMIDE 250 mg oral tablet (20 sources) Carbonic Anhydrase Inhibitor Start: 08-21-2020 End: 12-09-2021 take 1 tablet by mouth twice daily Acetazolamide 250 mg Tablet Discontinued 250 MG PO Twice daily July 09, 2021 1:00am December 09, 2021 12:58am Start: 02-21-2020 End: 03-30-2020 take 1 tablet by mouth twice daily Acetazolamide 250 mg Tablet Discontinued 250 MG PO Twice daily 60 February 21, 2020 12:00am March 30, 2020 10:34pm Comment on above: Take 250 mg by mouth twice daily. apixaban 5 mg oral tablet (7 sources) Factor Xa Inhibitor Start: 4 End: 4 take 1 tablet by mouth twice daily Apixaban (Eliquis) 5 mg tablet Discontinued 5 MG PO Twice daily 60 November 12, 2023 1:50pm June 10, 2024 10:39am benzocaine 200 mg/ml / menthol 5 mg/ml topical spray (11 sources) Standardized Chemical Allergen Start: 3 End: 3 Benzocaine-Menthol (Dermoplast (With Menthol)) 20-0.5 % Aerosol Discontinued 1 SPRAY TOPICAL PRN as needed for Discomfort August 13, 2022 1:00am September 03, 2022 7:38pm Blood Pressure Kit Med And Lrg (10 sources) Start: 3 End: 3 Blood Pressure Kit Med And Lrg Discontinued 0 .Route 1 August 02, 2022 1:00am August 13, 2022 1:07pm As directed Start: 08-02-2022 Blood Pressure Kit Med And Lrg Active 0 .Route 1 August 02, 2022 12:00am As directed Blood Pressure Kit Med And L rg kit (3 sources) Start: 08-02-2022 End: 08-13-2022 Blood Pressure Kit Med And L rg kit Discontinued 0 .Route 1 August 02, 2022 1:00am August 13, 2022 1:07pm As directed Start: 08-02-2022 End: 08-13-2022 Blood Pressure Kit Med And L rg kit Discontinued 0 .Route 1 August 02, 2022 12:00am August 13, 2022 12:07pm As directed busPIRone hydrochloride 5 mg oral tablet (20 sources) Start: 02-21-2020 End: 03-30-2020 take 1 tablet by mouth three times daily Buspirone 5 mg Tablet Discontinued 5 MG PO Three times daily 270 90 February 21, 2020 12:00am March 30, 2020 10:31pm cephalexin 500 mg oral capsule (20 sources) Cephalosporin Antibacterial Start: 12-02-2022 take 1 capsule by mouth once daily Keflex 500 mg Cap 500 mg = 1 cap(s), Oral, Daily, Take 1 capsule the day before the procedure and 1 capsule after the procedure, # 2 cap(s), Refills(s) 0, Pharmacy: [facility]/pharmacy #[id number], 167, cm, 09/03/22 13:32:00 EDT, Height/Length Dosing, 111, kg, 09/03/22 13:32:00 EDT... Start Date: 12/02/22 Status: Ordered Start: 10-18-2022 End: 10-28-2022 take 1 capsule by mouth every six hours Cephalexin 500 mg capsule Discontinued 500 MG PO Q6H 40 October 18, 2022 12:00am October 28, 2022 8:35pm Start: 08-02-2022 End: 08-13-2022 take 1 capsule by mouth every six hours Cephalexin 500 mg capsule Discontinued 500 MG PO Q6H 28 August 02, 2022 1:00am August 13, 2022 1:07pm Start: 08-01-2019 End: 08-25-2019 take 1 capsule by mouth three times daily Cephalexin (Keflex) 500 mg Capsule Discontinued 500 MG PO Three times daily August 01, 2019 1:00am August 25, 2019 10:16am cholecalciferol 0.025 mg oral tablet (20 sources) Vitamin D Start: 11-01-2022 End: 11-12-2023 take 1 tablet by mouth once daily Cholecalciferol (Vitamin D3) 25 mcg (1,000 unit) Tablet Discontinued 50 MCG PO Daily 60 November 01, 2022 12:00am November 12, 2023 1:29pm Start: 09-04-2021 End: 10-06-2021 take 1 tablet by mouth once daily Cholecalciferol (Vitamin D3) 25 mcg (1,000 unit) Tablet Discontinued 50 MCG PO Daily 60 September 04, 2021 12:00am October 06, 2021 2:18pm Start: 02-18-2020 End: 06-14-2021 take 1 capsule by mouth once daily Cholecalciferol (Vitamin D3) 1,000 unit capsule Discontinued 1000 UNIT PO Daily February 18, 2020 5:45pm June 14, 2021 11:35am take with some food, or when tube feeding is running. Start: 03-05-2019 End: 02-18-2020 take 1 capsule by mouth twice daily Cholecalciferol (Vitamin D3) 1,000 unit capsule Discontinued 1000 UNIT PO Twice daily 60 March 05, 2019 12:00am February 18, 2020 5:45pm take with some food, or when tube feeding is running. take 1 tablet by tejas th twice daily cholecalciferol (VITAMIN D3) 1,000 unit tab tablet Take 1,000 Units by mouth twice daily. 0 Active Comment on above: Take 1,000 Units by mouth twice daily. cyclobenzaprine hydrochloride 10 mg oral tablet (11 sources) Muscle Relaxant Start: 08-12-19 End: 09-04-19 take 1 mg by mouth at bedtime as needed for muscle spasms Cyclobenzaprine 10 mg Tablet Discontinued MG PO Bedtime as needed for Muscle Spasm August 12, 2022 1:00am September 03, 2022 7:38pm Start: 08-12-2022 End: 09-03-2022 take 1 mg by mouth at bedtime Cyclobenzaprine Disconti nued MG PO Bedtime August 12, 2022 1:00am September 03, 2022 7:38pm Dexlansoprazole (Dexilant) 60 mg capsule,biphase delayed releas (4 sources) Start: 11-11-2023 End: 11-12-2023 take 1 [...] 1:29pm docusate sodium 100 mg oral capsule (11 sources) Start: 08-13-2022 End: 09-03-2022 take 1 capsule by mouth at bedtime Docusate Sodium 100 mg Capsule Discontinued 100 MG PO Bedtime August 13, 2022 1:00am September 03, 2022 7:38pm doxepin hydrochloride 10 mg oral capsule (20 sources) Tricyclic Antidepressant Start: 08-31-2021 End: 10-06-2021 take 1 capsule by mouth once daily Doxepin 10 mg Capsule Discontinued 10 MG PO Daily August 31, 2021 1:00am October 06, 2021 2:23pm Start: 09-10-2020 End: 07-09-2021 take 1 capsule by mouth once daily at bedtime Doxepin 10 mg capsule Discontinued 10 MG PO Daily at bedtime June 14, 2021 1:00am July 09, 2021 6:36pm 1 ml erenumab-aooe 70 mg/ml auto-injector (20 sources) Start: 12-19-2020 inject 1 mL by subcutaneous injection once erenumab (Aimovig Autoinjector) 70 mg/mL injection Inject 1 mL (70 mg) under the skin every 28 (twenty-eight) days. 12/19/2020 Active Start: 12-19-2020 End: 06-25-2022 inject 70 mg by subcutaneous injection every 30 days Erenumab-Aooe (Aimovig Autoinjector) 70 mg/mL Auto-Injector Discontinued 70 MG SUBCUT Q30D August 31, 2021 1:00am June 25, 2022 10:16pm last taken 10/09/21 ferrous sulfate 325 mg oral tablet (19 sources) Start: 06-25-2022 End: 09-03-2022 take 1 tablet by mouth once daily Ferrous Sulfate (Iron) 325 mg (65 mg iron) Tablet Discontinued 325 MG PO Daily June 25, 2022 1:00am September 03, 2022 7:39pm 1.5 ml fremanezumab-vfr m 150 mg/ml auto-injector [...] 1 ml galcanezumab-gnl m 120 mg/ml auto-injector (20 sources) Start: 08-25-2019 End: 06-14-2021 inject 120 mg by subcutaneous injection every 30 days Galcanezumab-Gnlm (Emgality Pen) 120 mg/mL Pen Injector Discontinued 120 MG SUBCUT Q30D August 25, 2019 1:00am June 14, 2021 3:53pm hydrOXYzine pamoate 50 mg oral capsule (20 sources) Antihistamine Start: 09-04-2021 End: 12-11-2021 take 1 capsule by mouth at bedtime as needed for anxiety Hydroxyzine Pamoate 50 mg capsule Discontinued 50 MG PO Bedtime as needed for Anxiety October 06, 2021 2:23pm December 11, 2021 11:22am lamoTRIgine 25 mg oral tablet (20 sources) Mood Stabilizer, Anti-epileptic Agent Start: 02-21-2020 End: 06-14-2021 take 1 tablet by mouth twice daily Lamotrigine 25 mg Tablet Discontinued 25 MG PO Twice daily February 21, 2020 12:00am June 14, 2021 11:36am linaclotide 0.072 mg oral capsule (20 sources) Guanylate Cyclase-C Agonist Start: 11-11-2023 End: 11-12-2023 take 1 capsule by mouth once daily Linaclotide 72 mcg capsule Discontinued MCG PO November 11, 2023 12:00am November 12, 2023 1:30pm FreeTextSi capsule po one time daily; Note: Source Status: Refill; Refills: 3; Provider: Courtney Brewer Start: 10-19-2020 End: 10-19-2021 take 1 capsule by mouth once daily Linaclotide (Linzess) 145 mcg Capsule Discontinued 145 MCG PO Daily August 31, 2021 1:00am October 06, 2021 2:24pm Start: 03-03-2019 End: 02-18-2020 take 1 capsule by mouth once daily in the morning Linaclotide (Linzess) 145 mcg capsule Discontinued 145 MCG PO Daily March 03, 2019 12:00am February 18, 2020 5:44pm Takes in morning. Comment on above: Take 1 capsule by [facility] once daily. LORazepam 1 mg oral tablet (20 sources) Benzodiazepine Start: End: take 1 tablet by mouth twice daily as needed for anxiety Lorazepam (Ativan) 1 mg tablet Discontinued 1 MG PO Twice daily as needed for Anxiety June 14, 2021 1:00am August 31, 2021 6:34pm Start: 09-24-2020 LORazepam 0.5 MG Oral Tablet Quantity: 60 Refills: 0 Ordered: 24-Sep-2020 DO Start : 24-Sep-2020 Active take 1 mg by mouth o nce daily at bedtime LORazepam (ATIVAN) 0.5 mg Take 1 mg by mouth daily at bedtime. 0 Active Comment on above: Take 1 mg by mouth d aily at bedtime. metoclopramide 10 mg oral tablet (9 sources) Dopamine-2 Receptor Antagonist Start: 11-02-19 End: 12-12-19 take 1 tablet by mouth once before mealtime Metoclopramide Hcl 10 mg Tablet Discontinued 10 MG PO 3x/Day before meals 45 15 November 01, 2022 12:00am December 11, 2022 9:36pm Modified Lanolin (Lanolin (Hpa)) 100 % Cream (11 sources) Start: 08-13-19 End: 09-04-19 Modified Lanolin (Lanolin (Hpa)) 100 % Cream Discontinued 1 APPLIC TOPICAL PRN as needed for Discomfort August 13, 2022 1:00am September 03, 2022 7:39pm Start: 08-13-2022 End: 09-03-2022 Modified Lanolin (Lanolin (H pa)) 100 % Cream Discontinued 1 APPLIC TOPICAL PRN as needed for Discomfort August 13, 2022 12:00am September 03, 2022 6:39pm Start: 08-13-2022 End: 09-03-2022 Modified Lanolin (Lanolin (H pa)) 100 % Cream Discontinued 1 APPLIC TOPICAL PRN August 13, 2022 1:00am September 03, 2022 7:39pm naproxen 500 mg oral tablet (10 sources) Nonsteroidal Anti-inflammatory Drug Start: 10-18-2022 End: 10-28-2022 take 1 tablet by mouth twice daily as needed for pain Naproxen (Naprosyn) 500 mg tablet Discontinued 500 MG PO Twice daily as needed for pain October 18, 2022 12:00am October 28, 2022 6:00pm nitrofurantoin, macrocrystals 25 mg / nitrofurantoin, monohydrate 75 mg oral capsule (20 sources) Nitrofuran Antibacterial Start: 09-28-2022 End: 10-28-2022 take 1 capsule by mouth every twelve hours at mealtime Nitrofurantoin Monohyd/M-Cryst (Macrobid) 100 mg capsule Discontinued 100 MG PO Q12H September 28, 2022 12:00am October 28, 2022 8:00pm Administer with a meal/food: swallow whole; do not open, crush, dissolve, or chew Start: 12-11-2021 End: 01-20-2022 take 1 capsule by mouth twice daily Nitrofurantoin Monohyd/M-Cryst 100 mg Capsule Discontinued 100 MG PO Twice daily 8 4 December 11, 2021 12:00am January 20, 2022 3:48pm pantoprazole 40 mg delayed release oral tablet (20 sources) Proton Pump Inhibitor Start: 12-17-2020 End: 12-11-2021 take 1 tablet by mouth once daily Pantoprazole (Protonix) 40 mg tablet,delayed release (DR/EC) Discontinued 40 MG PO Daily June 14, 2021 1:00am December 11, 2021 11:22am Start: 08-01-2019 End: 02-18-2020 take 1 tablet by mouth twice daily Pantoprazole (Protonix) 40 mg Tablet,Delayed Release (Dr/Ec) Discontinued 40 MG PO Twice daily August 01, 2019 1:00am February 18, 2020 5:44pm Vit No.201-Zkzw-Sajrx ( Vitamin) 27 mg iron- 800 mcg Tablet (20 sources) Start: 12-11-2021 End: 09-03-2022 take 1 tablet by mouth once daily Vit No.208-Mzqq-Donnj ( Vitamin) 27 mg iron- 800 mcg Tablet Discontinued 1 TAB PO Daily December 10, 2021 11:00pm September 03, 2022 6:39pm Start: 12-11-2021 End: 09-03-2022 take 1 tablet by mouth once daily Vit No.910-Jrvc-Xwzbf ( Vitamin) 27 mg iron- 800 mcg Tablet Discontinued 1 TAB PO Daily December 11, 2021 12:00am September 03, 2022 7:39pm Start: 12-11-2021 take 1 tablet by tejas th once daily Vit No.780-Hcyd-Cwuwq ( Vitamin) 27 mg iron- 800 mcg Tablet Active 1 TAB PO Daily December 10, 2021 11:00pm Start: 12-11-2021 take 1 tablet by tejas th once daily Vit No.770-Potn-Vhivi ( Vitamin) 27 mg iron- 800 mcg Tablet Active 1 TAB PO Daily December 11, 2021 12:00am Vitamin TABS (8 sources) Vitamin TABS TAKE 1 TABLET DAILY DIRECTED. Quantity: 0 Refills: 0 Ordered: 14-Jan-2022 DO Active promethazine hydrochloride 25 mg oral tablet (20 sources) Phenothiazine Start: 11-11-2023 End: 11-12-2023 Promethazine 25 mg tablet Discontinued 25 MG PO November 11, 2023 12:00am November 12, 2023 1:31pm FreeTextSig: Oral; Note: Source Status: Not-TakingundefinedPRN; Qty: 60 Unspecified; Provider: Courtney Tabor ( ) Start: 11-01-2022 End: 11-12-2023 Promethazine 12.5 mg supposi tory Discontinued 12.5 MG UT Q6H as needed for Nausea And Vomiting December 11, 2022 12:00am November 12, 2023 1:31pm Start: 01-20-2022 End: 08-12-2022 take 1 tablet by mouth four times daily as needed for nausea and vomiting Promethazine 25 mg tablet Discontinued 25 MG PO Four times daily as needed for nausea and vomiting January 20, 2022 12:00am August 12, 2022 1:21pm Start: 03-03-2019 End: 06-14-2021 take 1 tablet by mouth every eight hours as needed for nausea Promethazine 25 mg tablet Discontinued 25 MG PO Three times daily as needed for Nausea March 03, 2019 12:00am June 14, 2021 11:36am 1 Tablet by mouth every 8 hours [...] needed. pyridostigmine bromide 60 mg oral tablet (4 sources) Start: 11-11-19 End: 11-12-19 24 take 1 tablet by mouth twice daily Pyridostigmine [place] 60 mg tablet Discontinued 1 TAB PO Twice daily November 11, 2023 12:00am November 12, 2023 1:31pm FreeTextSi tablet Orally bid; Note: Source Status: Taking; Refills: 4; Qty: 180 Tablet; Provider: Courtney Tabor ( ) rimegepant 75 mg disintegrating oral tablet (20 sources) Start: 03-30-20 End: 06-14-20 21 take 1 tablet by mouth once daily as needed for headache Rimegepant (Nurtec Odt) 75 mg Tablet,Disintegrating Discontinued 75 MG PO Daily as needed for Headache March 30, 2020 12:00am June 14, 2021 11:36am sertraline 100 mg oral tablet (20 sources) Serotonin Reuptake Inhibitor Start: 03-03-20 End: 06-14-20 21 take 2 tablets by mouth at bedtime Sertraline (Zoloft) 100 mg tablet Discontinued 200 MG PO Bedtime March 03, 2019 12:00am June 14, 2021 11:36am Sucralfate (1 source) Aluminum Complex Start: 11-11-19 End: 05-23-20 24 take 10 mL by mouth four times daily Sucralfate Discontinued PO November 11, 2023 12:00am November 12, 2023 1:31pm FreeTextSi ml Orally qid; Note: Source Status: Taking; Refills: 3; Qty: 1200 ml; Provider: Courtney Brewer Sucralfate 100 mg/mL suspension (3 sources) Start: 11-11-19 End: 11-12-19 take 10 mL by mouth four times daily Sucralfate 100 mg/mL suspension Discontinued PO November 11, 2023 12:00am November 12, 2023 1:31pm FreeTextSi ml Orally qid; Note: Source Status: Taking; Refills: 3; Qty: 1200 ml; Provider: Courtney Brewer Start: 11-11-2023 End: 11-12-2023 take 10 mL by mouth four times daily Sucralfate 100 mg/mL suspension Discontinued PO November 10, 2023 11:00pm November 12, 2023 12:31pm FreeTextSi ml Orally qid; Note: Source Status: Taking; Refills: 3; Qty: 1200 ml; Provider: Courtney Brewer terconazole 80 mg vaginal insert (19 sources) Azole Antifungal Start: 06-26-2022 End: 07-15-2022 Terconazole 80 mg Suppository Discontinued 1 SUPP VAGINAL Daily at bedtime 7 June 26, 2022 1:00am July 15, 2022 12:20pm tiZANidine 4 mg oral tablet (20 sources) Central alpha-2 Adrenergic Agonist Start: 10-28-2022 End: 12-11-2022 Tizanidine (Zanaflex) 4 mg Tablet Discontinued 5 MG PO Daily at bedtime October 28, 2022 12:00am December 11, 2022 9:37pm Per Pt. Report she takes 5 mg at HS Start: 10-08-2020 tiZANidine HCl - 4 MG Oral Tablet Quantity: 180 Refills: 0 Ordered: 08-Oct-2020 DO Start : 08-Oct-2020 Active Start: 02-18-2020 End: 09-28-2022 take 1 tablet by mouth at bedtime Tizanidine (Zanaflex) 4 mg Tablet Discontinued 4 MG PO Bedtime September 03, 2022 12:00am September 28, 2022 7:25pm Start: 08-01-2019 End: 08-29-2019 take 1 tablet by mouth once daily at bedtime Tizanidine 2 mg Tablet Discontinued 2 MG PO Daily at bedtime August 01, 2019 1:00am August 29, 2019 11:16am take 1 tablet by tejas th once daily at bedtime tiZANidine (ZANAFLEX) 4 mg tablet Take 4 mg by mouth daily at bedtime. 0 Active Comment on above: Take 4 mg by mouth d aily at bedtime. topiramate 100 mg oral tablet (20 sources) Start: 08-01-19 End: 02-18-20 take 1 tablet by mouth once daily at bedtime Topiramate (Topamax) 100 mg Tablet Discontinued 100 MG PO Daily at bedtime August 01, 2019 1:00am February 18, 2020 5:44pm ubrogepant 100 mg oral tablet (2 sources) ubrogepant (UBRE LVY) 100 mg tablet Take 100 mg by mouth as needed. 0 Active Comment on above: Take 100 mg by mouth as needed. 24 hr venlafaxine 150 mg extended release oral capsule (20 sources) Serotonin and Norepinephrine Reuptake Inhibitor Start: 07-15-19 End: 07-02-19 take 1 capsule by mouth once daily in the morning Venlafaxine (Effexor Xr) 150 mg capsule,extended release 24hr Discontinued 150 MG PO Every morning August 31, 2021 6:36pm July 02, 2022 10:23am Start: 07-09-2021 End: 07-15-2021 take 1 capsule by mouth once daily in the morning Venlafaxine 37.5 mg capsule,extended release 24hr Discontinued 37.5 MG PO Every morning July 09, 2021 1:00am July 15, 2021 10:32am Start: 06-18-2021 End: 07-15-2021 take 1 capsule by mouth once daily in the morning Venlafaxine 75 mg capsule,extended release 24hr Discontinued 75 MG PO Every morning July 09, 2021 6:38pm July 15, 2021 10:32am vitamin b12 1 mg oral tablet (20 sources) Vitamin B12 Start: 11-01-2022 End: 11-12-2023 take 1 tablet by mouth once daily in the morning Cyanocobalamin (Vitamin B-12) 1,000 mcg Tablet Discontinued 1000 MCG PO Every morning November 01, 2022 12:00am November 12, 2023 1:29pm Start: 02-21-2020 End: 06-14-2021 take 1 tablet by mouth once daily in the morning Cyanocobalamin (Vitamin B-12) 1,000 mcg Tablet Discontinued 1000 MCG PO Every morning February 21, 2020 12:00am June 14, 2021 11:35am witch marv 500 mg/ml medicated pad (11 sources) Start: 08-13-2022 End: 09-03-2022 Glycerin-Witch Marv (A.E.R. Witch Marv) 12.5-50 % Pads, Medicated Discontinued 1 PAD TOPICAL PRN as needed for Discomfort August 13, 2022 1:00am September 03, 2022 7:39pm Problems Active Problems Problem Classification Problem Date Documented Da te Episodic/Chronic Abdominal pain (20 sources) Abdominal pain; 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: [Unspecified abdominal pain] [...] dementia, and amnestic and other cognitive disorders (20 sources) Delirium; 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: [Delirium due to known physiological condition] 02-18-2020 Chronic Esophageal disorders (20 sources) Eosinophilic esophagitis; 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: [Eosinophilic esophagitis] Onset: 4 05-17-2019 Chronic Fluid and electrolyte disorders (20 sources) Dehydration; 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: [Dehydration] Onset: 9 12-24-2018 Episodic Genitourinary symptoms and ill-defined conditions (20 sources) Joseph hematuria; 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: [Nocturia] Onset: 3 07-17-2020 Episodic Headache; including migraine (20 sources) Headache; 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: [Headache] Onset: 9 04-19-2019 Episodic Immunizations and screening for infectious disease (20 sources) Exposure to Human immunodeficiency virus; 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: [...] 9 11-23-2018 Episodic Nervous system congenital anomalies (3 sources) Chiari malformation 12-13-2020 Chronic Nonspecific chest pain (20 sources) Chest pain; 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: [Chest pain, unspecified] 12-13-2020 Episodic Nutritional deficiencies (20 sources) Deficiency of macronutrients; 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: [Mild protein-calorie malnutrition] Onset: 9 05-26-2020 Chronic Nutritional deficiencies (20 sources) Cobalamin deficiency; 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: [Deficiency of other specified B group vitamins] 02-21-2020 Episodic Other aftercare (11 sources) Patient encounter status; 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: [Encounter for therapeutic drug level monitoring] Onset: 4 Episodic Other aftercare (1 source) Other long term care social worker (current) drug therapy; 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: [OTH SOFTWARE REVERSE ENGINEER CURRENT DRUG THERAPY] Onset: 3 Episodic Other aftercare (1 source) Long-term current use of anticoagulant; 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: [terminal gauger supervisor (current) use of anticoagulants] Onset: 4 Episodic Other complications of (3 sources) Advanced maternal age 12-10-2021 Episodic Other diseases of bladder and urethra (6 sources) Urethral stricture 09-15-2022 Episodic Other diseases of bladder and urethra (2 sources) Male urethral stricture; 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: [Unspecified urethral stricture, male, unspecified site] Onset: 3 Episodic Other diseases of kidney and ureters (19 sources) Renal mass; 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: [Other specified disorders of kidney and ureter] Onset: 3 07-17-2020 Chronic Other diseases of kidney and ureters (2 sources) Disorder of kidney and/or ureter; 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: [Other specified disorders of kidney and ureter] Onset: 3 Chronic Other diseases of kidney and ureters (1 source) Other specified disorders of kidney and ureter; 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: [Other specified disorders of kidney and ureter] Onset: 5 Chronic Other disorders of stomach and duodenum (20 sources) Gastroparesis syndrome; 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: [Gastroparesis] Onset: 8 12-31-2019 Episodic Comment on above: s/p gastrectomy Other disorders of stomach and duodenum (9 sources) Gastroparesis; 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: [Gastroparesis] Onset: 3 11-01-2022 Episodic Other female genital disorders (2 sources) Vaginal bleeding; 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: [Abnormal uterine and vaginal bleeding, unspecified] Onset: 4 06-17-2021 Chronic Other gastrointestinal disorders (3 sources) History of intubation of gastrointestinal tract via jejunostomy 07-14-2021 Chronic Other infections; including parasitic (7 sources) Infection by Trichomonas 07-17-2020 Episodic Other injuries and conditions due to external causes (7 sources) Injury of head 07-17-2020 Episodic Other lower respiratory disease (9 sources) Dyspnea; 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: [Shortness of breath] Episodic Other nervous system disorders (19 sources) Benign intracranial hypertension; 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: [Benign intracranial hypertension] Onset: 3 06-08-2023 Chronic Other nervous system disorders (20 sources) Chiari malformation type I; 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: [Compression of brain] Onset: 9 05-18-2019 Chronic Other nervous system disorders (4 sources) Compression of brain; 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: [Compression of brain] 08-02-2022 Chronic Other nervous system disorders (20 sources) Disturbance in speech; 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: [Other speech disturbances] 02-18-2020 Episodic Other nutritional; endocrine; and metabolic disorders (11 sources) Body mass index 40+ - severely [...] [ state, incidental] 12-10-2021 Episodic Ovarian cyst (20 sources) Cyst of ovary; 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: [Unspecified ovarian cyst, unspecified side] 08-31-2021 Episodic Pulmonary heart disease (4 sources) Other pulmonary embolism without acute cor pulmonale; 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: [Pulmonary embolism] Onset: 4 11-13-2023 Episodic Residual codes; unclassified (20 sources) Altered mental status; 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: [Altered mental status, unspecified] Onset: 9 03-11-2019 Episodic Residual codes; unclassified (9 sources) Non-smoker; 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: [Other specified conditions influencing health status] Episodic Residual codes; unclassified (20 sources) H/O: hypertension; 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: [Personal history of other complications of , childbirth and the puerperium] 12-10-2021 Episodic Residual codes; unclassified (20 sources) Hallucinations; 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: [Hallucinations, unspecified] 03-03-2019 Episodic Residual codes; unclassified (10 sources) Personal history of other complications of , childbirth and the puerperium; 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: [Personal history of other genital system and obstetric disorders] 12-11-2021 Episodic Residual codes; unclassified (5 sources) Hallucinations, unspecified; 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: [Hallucinations] 07-17-2022 Episodic Residual codes; unclassified (20 sources) Auditory hallucinations; 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: [Auditory hallucinations] 09-03-2022 Episodic Residual codes; unclassified (9 sources) Auditory hallucinations; 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: [Hallucinations] 09-07-2022 Episodic Schizophrenia and other psychotic disorders (20 sources) Psychotic disorder; 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: [Unspecified psychosis not due to a substance or known physiological condition] 10-05-2021 Chronic Spondylosis; intervertebral disc disorders; other back problems (20 sources) Neck pain; 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: [Cervicalgia] Onset: 5 12-13-2020 Episodic Suicide and intentional self-inflicted injury [...] [Other chronic cystitis without hematuria] Onset: 3 04-09-2021 Chronic Urinary tract infections (20 sources) Urinary tract infectious disease; 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: [Urinary tract infection, site not specified] Onset: 3 12-09-2021 Episodic Past or Other Problems Problem Classification Problem Date Documented Da te Episodic/Chronic Blindness and vision defects (2 sources) Abnormal vision; 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: [Unspecified visual disturbance] Onset: 4 06-17-2021 Episodic Epilepsy; convulsions (13 sources) Seizure; 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: [Unspecified convulsions] Onset: 3 07-17-2020 Episodic Esophageal disorders (2 sources) Esophagitis; 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: [...] Onset: 2 Episodic Phlebitis; thrombophlebitis and thromboembolism (12 sources) Acute deep venous thrombosis of left [...] Test Name Value Interpretation Reference Range Facility MR cervical spine wo conon 0 08-31-2024 MR cervical spine wo con [facility] [place] [address] MRI Report Signed Patient: Maricarmen Adnerson MR#: [id number] : 1980 Acct:[id number] Age/Sex: 43 / F ADM Date: 08/31/24 Loc: MR Room: Type: [facility] Attending Dr: Tete Snell MD Copies to: Tete Snell MD Ordering Provider: Tete Snell MD Date of Service: 08/31/24 MR/MR cervical spine wo con: CERVICAL RADICULOPATHY EXAMINATION: MRI OF THE CERVICAL SPINE WITHOUT CONTRAST CLINICAL DATA: Neck pain for past 5 months, limited range of motion TECHNIQUE: Multiecho imaging was performed in the sagittal and axial plane without contrast administration. FINDINGS: Mild straightening and reversal normal cervical lordosis. Craniocervical junction is maintained. Cervical cord demonstrates normal signal and morphology.. Mild multilevel facet arthropathy identified, greatest left. There is minimal perifacet edema at C4-C5 with associated effusion. Otherwise, the Cervical vertebral heights, alignment and bone marrow signal is otherwise unremarkable. No prevertebral soft tissue swelling. Paraspinal soft tissues are unremarkable. C2-C5: No significant disease, central canal or neural foramen identified. Mild multilevel facet arthropathy. C5-6: Minimal broad-based disc bulge with left paracentral disc osteophyte complex. Mild facet arthropathy. Minimal canal narrowing. No significant neural from narrowing. There is mild left- sided facet arthropathy. C6-T1: Mild to moderate facet arthropathy, predominantly left-sided. Otherwise no significant disc disease central canal or neural from narrowing identified. MR/MR cervical spine wo con IMPRESSION: Multilevel level predominantly posterior element degenerative changes greatest left at C4-C5 with is adjacent perifacet edema and trace effusion Otherwise minimal degenerative changes at C5-6. Impression dictated by: Praful Manley M.D.08/31/2024 10:20 AM Dictation Location: [place] [address] Transcribed By: [facility] 08/31/24 1020 Dictated By: Praful Manley MD 08/31/24 0947 Signed By: 08/31/24 1020 Normal [facility] Magnetic resonance imaging r eportOrdered By: Praful Manley on 08-31-2024 Study report [facility] [place] [address] MRI Report Signed Patient: Maricarmen [place] MR#: [id number] : 1980 Acct:[id number] Age/Sex: 43 / F ADM Date: 5 Loc: MR Room: Type: REG CLI Attending Dr: Tete Snell MD Copies to: Tete Snell MD~ Ordering Provider: Tete Snell MD Date of Service: 08/31/24 MR/MR cervical spine wo con: CERVICAL RADICULOPATHY EXAMINATION: MRI OF THE CERVICAL SPINE WITHOUT CONTRAST CLINICAL DATA: Neck pain for past 5 months, limited range of motion TECHNIQUE: Multiecho imaging was performed in the sagittal and axial plane without contrast administration. FINDINGS: Mild straightening and reversal normal cervical lordosis. Craniocervical junction is maintained. Cervical cord demonstrates normal signaland morphology.. Mild multilevel facet arthropathy identified, greatest left. There is minimal perifacet edema at C4-C5 with associated effusion. Otherwise, the Cervical vertebral heights, alignment and bone marrow signal is otherwise unremarkable. No prevertebral soft tissue swelling. Paraspinal soft tissues are unremarkable. C2-C5: No significant disease, central canal or neural foramen identified. Mildmultilevel facet arthropathy. C5-6: Minimal broad-based disc bulge with left paracentral disc osteophyte complex. Mild facet arthropathy. Minimal canal narrowing. No significant neural from narrowing. There is mild left-sided facet arthropathy. C6-T1: Mild to moderate facet arthropathy, predominantly left-sided. Otherwise no significant disc disease central canal or neural from narrowing identified. MR/MR cervical spine wo con IMPRESSION: Multilevel level predominantly posterior element degenerative changes greatest left at C4-C5 with is adjacent perifacet edema and trace effusion Otherwise minimal degenerative changes at C5-6. Impression dictated by: Praful Manley M.D.08/31/2024 10:20 AM Dictation Location: [place] [address] Transcribed By: [facility] 08/31/24 1020 Dictated By: Praful Manley MD 08/31/24 0947 Signed By: 08/31/24 1020 [facility] Work Phone: INR in Platelet poor plasma by Coagulation assayon 07-11-2024 INR Coag (PPP) [Relative time] INR in Platelet poor plasma by Coagulation assay [facility] Comment on above: DESIRED INR:2.0-3.0 CONDITIONS NOT LISTED BELOW2.5-3.5 FOR PROSTHETIC HEART VALVE REPLACEMENT2.5-3.5 RECURRENT THROMBOSIS No Panel Informationon 07-11 Human Chorionic Gonadotropin, Qual Negative NEGATIVE [facility] Prothrombin time (PT)on 06-23 PT Coag (PPP) [Time] Prothrombin time (PT) 9.0- 11.6 [facility] Basophils Auto (Bld) [#/Vol] on 07-05-2024 Basophils (Bld) [#/Vol] Automated basophil count 0.0-0.1 [facility] Basophils/100 WBC Auto (Bld) on 07-05-2024 Basophils/100 WBC (Bld) Automated basophil % 0.2-2.0 [facility] Eosinophils/100 WBC Auto (Bl d)on 07-05-2024 Eosinophils/100 WBC (Bld) Automated eosinophil % 0.9-7.0 [facility] Erythrocyte distribution wid th Auto (RBC) [Ratio]on 07-05-2024 Erythrocyte distribution width (RBC) [Ratio] Erythrocyte distribution width [Ratio] by Automated count 11.0-15.0 [facility] Estimated glomerular filtrat ion rate (GFR) non- Americanon 07-05-2024 GFR/1.73 sq M.predicted among non-blacks MDRD (S/P/Bld) [Vol rate/Area] Estimated glomerular filtration rate (GFR) non- >=60 mL/min/1.73 m 2 [facility] Hematocrit Auto (Bld) [Volum e fraction]on 07-05-2024 Hematocrit (Bld) [Volume fraction] Hematocrit [Volume Fraction] of Blood by Automated count 36.0-48.0 [facility] Hemoglobin [Mass/volume] in Bloodon 07-05-2024 Hemoglobin (Bld) [Mass/Vol] Hemoglobin [Mass/volume] in Blood 12.0-16.0 [facility] Iron binding capacity [Mass/ volume] in Serum or Plasmaon 07-05-2024 Iron binding capacity [Mass/Vol] Iron binding capacity [Mass/volume] in Serum or Plasma 250.0-450.0 [facility] Iron saturation [Mass Fracti on] in Serum or Plasmaon 07-05-2024 Iron saturation [Mass fraction] Iron saturation [Mass Fraction] in Serum or Plasma [facility] Laboratory - Chemistry and C hemistry - challengeon 07-05-2024 Calcium [Mass/Vol] 9.2 mg/dL 8.5-10.1 [facility] Chloride [Moles/Vol] 105 mmol/L 98-107 [facility] CO2 [Moles/Vol] 28.3 mmol/L 21.0-32.0 [facility] Cobalamin (Vitamin B12) [Mass/Vol] 617 pg/mL 232-1245 [facility] Comment on above: Performed at: - [facility] [address] [id number] Director: Prabhakar Warren PhD, Phone: [phone] Creatinine [Mass/Vol] 0.94 mg/dL 0.55-1.02 [facility] Ferritin [Mass/Vol] 76.0 ng/mL 8.0-252.[address] [facility] GFR/1.73 sq M.predicted MDRD (S/P/Bld) [Vol rate/Area] mL/min/{1.73_m2} >=60 mL/min/1.73 m 2 [facility] Glucose [Mass/Vol] 96 mg/dL 74-106 [facility] Iron [Mass/Vol] 116.0 ug/dL 50.0-170.0 [facility] Potassium [Moles/Vol] 4.3 mmol/L 3.5-5.1 [facility] Sodium [Moles/Vol] 143 mmol/L 136-145 [facility] Urea nitrogen [Mass/Vol] 11.0 mg/dL 7.0-18.0 [facility] Urea nitrogen/Creatinine [Mass ratio] 11.7 mg/mg [facility] Laboratory - Hematology and Cell countson 07-05-2024 Immature granulocytes/100 WBC (Bld) 0.2 % 0.0-0.5 [facility] Leukocytes [#/volume] correc nneka for nucleated erythrocytes in Blood by Automated counon 07-05-2024 WBC corrected for nucl RBC Auto (Bld) [#/Vol] Leukocytes [#/volume] corrected for nucleated erythrocytes in Blood by Automated coun 4.0-11.0 [facility] Lymphocytes Auto (Bld) [#/Vo l]on 07-05-2024 Lymphocytes (Bld) [#/Vol] Lymphocytes [#/volume] in Blood by Automated count 1.2-3.8 [facility] Lymphocytes/100 WBC Auto (Bl d)on 07-05-2024 Lymphocytes/100 WBC (Bld) Lymphocytes/100 leukocytes in Blood by Automated count 20.5-60.0 [facility] MCH Auto (RBC) [Entitic mass ]on 07-05-2024 MCH (RBC) [Entitic mass] MCH [Entitic mass] by Automated count High 26.7-34.0 [facility] MCHC Auto (RBC) [Mass/Vol]on 07-05-2024 MCHC (RBC) [Mass/Vol] MCHC [Mass/volume] by Automated count 29.9-35.2 [facility] MCV Auto (RBC) [Entitic vol] on 07-05-2024 MCV (RBC) [Entitic vol] MCV [Entitic volume] by Automated count High 81.0-99.0 [facility] [place] Intraoperative Recor don 07-05-2024 Main [place] Intraoperative Record Main OR Intraoperative Record IntraOp Document Type FTURO Summary Primary Physician: Michael VIVEROS MD Finalized Date/Time: 07/05/24 13:38:20 Pt. Name: JUSTIN MARICARMEN Petersen/Sex: 1980 Female Med Rec #: [id number] Physician: Michael VIVEROS MD Financial #: [id number] Pt. Type: O Room/Bed: / Admit/Disch: 07/05/24 12:41:15 - Institution: Case Times FTURO Entry 1 Patient Times In Room 07/05/24 13:26:00 Out Room 07/05/24 13:38:00 Procedure Times Start 07/05/24 13:32:00 Stop 07/05/24 13:35:00 Anesthesia Times Last Modified By: Jolie Caldwell 07/05/24 13:38:10 Case Attendance FTURO Entry 1 Entry 2 Entry 3 Case Attendee Michael VIVEROS MD, Kelsie E McClain CST, Sheyla Mullins Role Performed Surgeon - Primary Television Repair Teacher - Primary Scrub - Primary Time In [...] Position Verified Availability Equipment, Medication Time Out Michael VIVEROS MD Verified (If Participants Jolie Caldwell, Applicable) Sheyla Gold CST Time Out Complete 07/05/24 13:31:00 Allergies Reviewed? Yes Allergies Reviewed Self/Patient With Body Position Frog Legged Prep Area VAGINA Prep Agents Betadine Solution Skin. Condition Intact, [place], Warm, & Description N/A Dry Additional None [...] 07/05/24 13:38 Jolie Caldwell 07/05/24 13:38 Normal [facility] Main OR Preoperative Recordo n 07-05-2024 Main OR Preoperative Record Main OR Preoperative Record Holding Area Document Type FTURO Summary Primary Physician: Michael VIVEROS MD Finalized Date/Time: 07/05/24 13:21:29 Pt. Name: MARICARMEN ANDERSON/Sex: 1980 Female Med Rec #: [id number] Physician: Michael VIVEROS MD Financial #: [id number] Pt. Type: O Room/Bed: / Admit/Disch: 07/05/24 [...] Complaints of Pain: No Skin Integrity Intact, [place], Warm, & Dry Vitals - EU Blood Pressure 112/72 Pulse 67 bpm Respirations 18 br/min SPO2 98 % Additional None RN Reviewed Yes Specimens Collected Last Modified By: Jolie Caldwell 07/05/24 13:20:55 Finalized By: Jolie Caldwell Document Signatures Signed By: Jolie Caldwell 07/05/24 13:21 Jolie Caldwell 07/05/24 13:21 Jolie Caldwell 07/05/24 13:21 Jolie Caldwell 07/05/24 13:20 Gabriella Gottlieb LPN 07/05/24 13:09 Jolie Caldwell 07/05/24 13:21 Normal [facility] Monocytes Auto (Bld) [#/Vol] on 07-05-2024 Monocytes (Bld) [#/Vol] Automated blood monocyte count 0.3-0.8 [facility] Monocytes/100 WBC Auto (Bld) on 07-05-2024 Monocytes/100 WBC (Bld) Automated monocyte % 1.7-12.0 [facility] Neutrophils Auto (Bld) [#/Vo l]on 07-05-2024 Neutrophils (Bld) [#/Vol] Neutrophils [#/volume] in Blood by Automated count 1.4-6.5 [facility] Neutrophils/100 WBC Auto (Bl d)on 07-05-2024 Neutrophils/100 WBC (Bld) Automated neutrophil % 43.0-75.0 [facility] No Panel Informationon 07-05 25-Hydroxy Vitamin D Total 31.2 ng/mL [facility] Comment on above: <20 ng/mL Vit D defi cient20-<30 ng/mL Vit D [id number] ng/mL Vit D sufficient>100 ng/mL Potential Toxicity Eosinophils # (Auto) 0.1 10 3/uL 0.0-0.7 [facility] Immature Granulocyte # (Auto) 0.01 10 3/uL 0.00-0.03 [facility] Operative Reporton Operative Report Operative Report Patient: [...] up arranged. Urethra was dilated from 22-30 [place] with [place] sounds. Normal [facility] Comment on above: Result Comment: Elec tronically Signed By: Michael VIVEROS MD\.br\Date and Time Signed: 07/05/24 13:40 EST Platelet mean volume Auto (B ld) [Entitic vol]on 07-05-2024 Platelet mean volume (Bld) [Entitic vol] Platelet mean volume [Entitic volume] in Blood by Automated count 9.5-13.5 [facility] Platelets Auto (Bld) [#/Vol] on 07-05-2024 Platelets (Bld) [#/Vol] Platelets [#/volume] in Blood by Automated count 150-450 [facility] RBC Auto (Bld) [#/Vol]on RBC (Bld) [#/Vol] Erythrocytes [#/volu me] in Blood by Automated count Low 4.20-5.40 [facility] Serum or plasma anion gap de terminationon 07-05-2024 Anion gap [Moles/Vol] Serum or plasma an ion gap determination [facility] CT abdomen pelvis w conon [place] abdomen [place] [address] CT Scan Report Signed Patient: Maricarmen Anderson MR#: [id number] : 1980 Acct:[id number] Age/Sex: 43 / F ADM Date: 07/04/24 Loc: CT Room: Type: [facility] Attending Dr: Michael Viveros MD Copies to: [...] Oro Jr., D.OBeatris07/04/2024 2:58 PM Dictation Location: [place] [address] Transcribed By: [facility] 07/04/24 145 Dictated By: Mitchel Oro Jr, DO 07/04/241454 Signed By: 07/04/241457 Normal [facility] Basophils Auto (Bld) [#/Vol] on 06-02-2024 Basophils (Bld) [#/Vol] Automated basophil count 0.0-0.1 [facility] Basophils/100 WBC Auto (Bld) on 06-02-2024 Basophils/100 WBC (Bld) Automated basophil % 0.2-2.0 [facility] Cholesterol in LDL Calc [Mas s/Vol]on 06-02-2024 Cholesterol in LDL [Mass/Vol] Cholesterol in LDL [Mass/volume] in Serum or Plasma by calculation [facility] Comment on above: <100 mg/dl [id number] 0-129 mg/dl NEAR OR ABOVE [id number] mg/dl BORDERLINE [id number] mg/dl HIGH>190 mg/dl VERY HIGH Cholesterol in VLDL Calc [Ma ss/Vol]on 06-02-2024 Cholesterol in VLDL [Mass/Vol] Cholesterol in VLDL [Mass/volume] in Serum or Plasma by calculation [facility] Eosinophils/100 WBC Auto (Bl d)on 06-02-2024 Eosinophils/100 WBC (Bld) Automated eosinophil % 0.9-7.0 [facility] Erythrocyte distribution wid th Auto (RBC) [Ratio]on 06-02-2024 Erythrocyte distribution width (RBC) [Ratio] Erythrocyte distribution width [Ratio] by Automated count 11.0-15.0 [facility] Estimated glomerular filtrat ion rate (GFR) non- Americanon 06-02-2024 GFR/1.73 sq M.predicted among non-blacks MDRD (S/P/Bld) [Vol rate/Area] Estimated glomerular filtration rate (GFR) non- Low >=60 mL/min/1.73 m 2 [facility] Glucose mean value [Mass/vol ume] in Blood Estimated from glycated hemoglobinon 06-02-2024 Average glucose Estimated from glycated hemoglobin (Bld) [Mass/Vol] Glucose mean value [Mass/volume] in Blood Estimated from glycated hemoglobin [facility] Hematocrit Auto (Bld) [Volum e fraction]on 06-02-2024 Hematocrit (Bld) [Volume fraction] Hematocrit [Volume Fraction] of Blood by Automated count 36.0-48.0 [facility] Hemoglobin [Mass/volume] in Bloodon 06-02-2024 Hemoglobin (Bld) [Mass/Vol] Hemoglobin [Mass/volume] in Blood 12.0-16.0 [facility] Iron binding capacity [Mass/ volume] in Serum or Plasmaon 06-02-2024 Iron binding capacity [Mass/Vol] Iron binding capacity [Mass/volume] in Serum or Plasma 250.0-450.0 [facility] Iron saturation [Mass Fracti on] in Serum or Plasmaon 06-02-2024 Iron saturation [Mass fraction] Iron saturation [Mass Fraction] in Serum or Plasma [facility] Laboratory - Chemistry and C hemistry - challengeon 06-02-2024 Calcium [Mass/Vol] 9.1 mg/dL 8.5-10.1 [facility] Chloride [Moles/Vol] 105 mmol/L 98-107 [facility] Cholesterol [Mass/Vol] 186 mg/dL <=200 [facility] Cholesterol in HDL [Mass/Vol] 72 mg/dL High 40-60 [facility] Comment on above: > or =60 mg/dl - LOW CARDIOVASCULAR RISK<40 mg/dl - HIGH CARDIOVASCULAR RISK CO2 [Moles/Vol] 29.9 mmol/L 21.0-32.0 [facility] Cobalamin (Vitamin B12) [Mass/Vol] 241 pg/mL 232-1245 [facility] Comment on above: Performed at: [address], [place], [place] [id number] Director: Prabhakar Warren PhD, Phone: [phone] Creatinine [Mass/Vol] 1.16 mg/dL High 0.55-1.02 [facility] Ferritin [Mass/Vol] 78.0 ng/mL 8.0-252.[address] [facility] GFR/1.73 sq M.predicted MDRD (S/P/Bld) [Vol rate/Area] mL/min/{1.73_m2} >=60 mL/min/1.73 m 2 [facility] Glucose [Mass/Vol] 101 mg/dL 74-106 [facility] Iron [Mass/Vol] 112.0 ug/dL 50.0-170.0 [facility] Potassium [Moles/Vol] 3.9 mmol/L 3.5-5.1 [facility] Sodium [Moles/Vol] 141 mmol/L 136-145 [facility] Triglyceride [Mass/Vol] 86 mg/dL <=150 [facility] Urea nitrogen [Mass/Vol] 7.0 mg/dL 7.0-18.0 [facility] Urea nitrogen/Creatinine [Mass ratio] 6.0 mg/mg [facility] Laboratory - Hematology and Cell countson 06-02-2024 HbA1c (Bld) [Mass fraction] 5.7 % 4.5-6.2 [facility] Comment on above: ADA RECOMMENDED LIMI T 4.0 - 6.0ADA THERAPEUTIC TARGET < 7.0ACTION SUGGESTED> 7.0 Immature granulocytes/100 WBC (Bld) 0.2 % 0.0-0.5 [facility] Leukocytes [#/volume] correc nneka for nucleated erythrocytes in Blood by Automated counon 06-02-2024 WBC corrected for nucl RBC Auto (Bld) [#/Vol] Leukocytes [#/volume] corrected for nucleated erythrocytes in Blood by Automated coun 4.0-11.0 [facility] Lymphocytes Auto (Bld) [#/Vo l]on 06-02-2024 Lymphocytes (Bld) [#/Vol] Lymphocytes [#/volume] in Blood by Automated count 1.2-3.8 [facility] Lymphocytes/100 WBC Auto (Bl d)on 06-02-2024 Lymphocytes/100 WBC (Bld) Lymphocytes/100 leukocytes in Blood by Automated count 20.5-60.0 [facility] MCH Auto (RBC) [Entitic mass ]on 06-02-2024 MCH (RBC) [Entitic mass] MCH [Entitic mass] by Automated count 26.7-34.0 [facility] MCHC Auto (RBC) [Mass/Vol]on 06-02-2024 MCHC (RBC) [Mass/Vol] MCHC [Mass/volume] by Automated count 29.9-35.2 [facility] MCV Auto (RBC) [Entitic vol] on 06-02-2024 MCV (RBC) [Entitic vol] MCV [Entitic volume] by Automated count 81.0-99.0 [facility] Monocytes Auto (Bld) [#/Vol] on 06-02-2024 Monocytes (Bld) [#/Vol] Automated blood monocyte count 0.3-0.8 [facility] Monocytes/100 WBC Auto (Bld) on 06-02-2024 Monocytes/100 WBC (Bld) Automated monocyte % 1.7-12.0 [facility] Neutrophils Auto (Bld) [#/Vo l]on 06-02-2024 Neutrophils (Bld) [#/Vol] Neutrophils [#/volume] in Blood by Automated count 1.4-6.5 [facility] Neutrophils/100 WBC Auto (Bl d)on 06-02-2024 Neutrophils/100 WBC (Bld) Automated neutrophil % 43.0-75.0 [facility] No Panel Informationon 06-02 25-Hydroxy Vitamin D Total 26.9 ng/mL [facility] Comment on above: <20 ng/mL Vit D defi cient20-<30 ng/mL Vit D jpkyhkrajrjw94-826 ng/mL Vit D sufficient>100 ng/mL Potential Toxicity Eosinophils # (Auto) 0.2 10 3/uL 0.0-0.7 [facility] Immature Granulocyte # (Auto) 0.01 10 3/uL 0.00-0.03 [facility] Platelet mean volume Auto (B ld) [Entitic vol]on 06-02-2024 Platelet mean volume (Bld) [Entitic vol] Platelet mean volume [Entitic volume] in Blood by Automated count Low 9.5-13.5 [facility] Platelets Auto (Bld) [#/Vol] on 06-02-2024 Platelets (Bld) [#/Vol] Platelets [#/volume] in Blood by Automated count 150-450 [facility] RBC Auto (Bld) [#/Vol]on RBC (Bld) [#/Vol] Erythrocytes [#/volu me] in Blood by Automated count 4.20-5.40 [facility] Serum or plasma anion gap de terminationon 06-02-2024 Anion gap [Moles/Vol] Serum or plasma an ion gap determination [facility] Serum or plasma total choles terol/high density lipoprotein (HDL) cholesterol mass edu 06-02-2024 Cholesterol.total/Chol esterol in HDL [Mass ratio] Serum or plasma total cholesterol/high density lipoprotein (HDL) cholesterol mass rat [facility] Comment on above: 3.3 - 4.4 LOW [...] 161 TODAY - 286ml. See #2. Ordered: 07328 Measure Post Void residual urine and/or bladder capacity by US- non-imaging Urnls Dip Stick Auto w/o Microscopy POC 46175 2. Urethral stricture (N35.919: Unspecified urethral stricture, [...] been obtained. Will order Local anesthesia. Ordered: [id number] Measure Post Void residual urine and/or bladder capacity by US- non-imaging Urnls Dip Stick Auto w/o Microscopy POC 59244 3. Renal mass (N28.89: Other specified disorders [...] better look at the complex cyst. Ordered: [id number] Measure Post Void residual urine and/or bladder capacity by US- non-imaging Urnls Dip Stick Auto w/o Microscopy POC 55783 4. 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 [address] Additional Instructions: Follow up schedule [...] 06/02/2024 Tobac (more content not included)... Normal [facility] Comment on above: Result Comment: Elec tronically Signed By: ESTELA CHUNG PA-Cbr\Date and Time Signed: 06/02/24 16:50 EST\.br\Electronically Co-Signed By: Shyann Yoobr\Date and Time Co-Signed: 06/02/24 15:54 EST US renal BIon 05-30-2024 US renal BI [facility] [place] [address] Ultrasound Report Signed Patient: Maricarmen Anderson MR#: [id number] : 1980 Acct:[id number] Age/Sex: 43 / F ADM Date: 05/30/24 Loc: Room: Type: [facility] Attending Dr: Estela Chung PA-C Ordering Provider: [...] OBSTRUCTION. Impression dictated by: Mitchel Oro Jr., D.OBeatris05/30/2024 6:31 PM Dictation Location: [facility] Tech: Greta Reyes Transcribed By: RAFA 05/30/241830 Dictated By: Mitchel Oro Jr, DO 05/30/241828 Signed By: 05/30/241830 Normal [facility] APTTon 10-31-2023 aPTT Coag (Bld) [Time] 139.6 s Critically high 23.0-36. [address] [facility] Comment on above: Result Comment: IV Heparin Therapy Range: 66.0-92.0 sec Performed By: #### P TT #### [address] [address] Software Project Lead: Breezy White MD CBCon 10-31-2023 Erythrocyte distribution width (RBC) [Ratio] 12.7 % Normal 11.8-14.[address] [facility] Comment on above: Performed By: #### C BC #### [address] [address] Software Project Lead: Breezy White MD Hematocrit (Bld) [Volume fraction] 36.5 % Normal 36.3-47.[address] [facility] Comment on above: Performed By: #### C BC #### [address] [address] Software Project Lead: Breezy White MD Hemoglobin (Bld) [Mass/Vol] 12.0 g/dL Normal 11.9-15.[address] [facility] Comment on above: Performed By: #### C BC #### [address] [address] Software Project Lead: Breezy White MD MCH (RBC) [Entitic mass] 31.9 pg Normal 25.2-33.[address] [facility] Comment on above: Performed By: #### C BC #### [address] [address] Software Project Lead: Breezy White MD MCHC (RBC) [Mass/Vol] 32.9 g/dL Normal 28.4-34.8 [facility] Comment on above: Performed By: #### C BC #### [address] [address] Software Project Lead: Breezy White MD MCV (RBC) [Entitic vol] 97.1 fL Normal 82.6-102.[address] [facility] Comment on above: Performed By: #### C BC #### [address] [address] Software Project Lead: Breezy White MD NRBC Automated 0.0 per 100 WBC Normal 0.[address] [facility] Comment on above: Performed By: #### C BC #### [address] [address] Software Project Lead: Breezy White MD Platelet mean volume (Bld) [Entitic vol] 9.9 fL Normal 8.1-13.[address] [facility] Comment on above: Performed By: #### C BC #### [address] [address] Software Project Lead: Breezy White MD Platelets (Bld) [#/Vol] 149 10*3/uL Normal 138-[address] [facility] Comment on above: Performed By: #### C BC #### [address] [address] Software Project Lead: Breezy White MD RBC (Bld) [#/Vol] 3.76 10*6/uL Low 3.95-5.[address] [facility] Comment on above: Performed By: #### C BC #### [address] [address] Software Project Lead: Breezy White MD WBC (Bld) [#/Vol] 5.0 10*3/uL Normal 3.5-11.[address] [facility] Comment on above: Performed By: #### C BC #### [address] [address] Software Project Lead: Breezy White MD APTTon 2023 aPTT Coag (Bld) [Time] 59.7 s High 23.0-36.5 [facility] Comment on above: Result Comment: IV Heparin Therapy Range: 66.0-92.0 sec Performed By: #### P TT #### [address] [address] Software Project Lead: Breezy White MD aPTT Coag (Bld) [Time] 75.3 s High 23.0-36.5 [facility] Comment on above: Result Comment: IV Heparin Therapy Range: 66.0-92.0 sec Performed By: #### P TT #### [address] [address] Software Project Lead: Breezy White MD aPTT Coag (Bld) [Time] s Critically high 23.0-36. [address] [facility] Comment on above: Result Comment: IV Heparin Therapy Range: 66.0-92.0 sec Performed By: #### P TT #### [place] [address] Software Project Lead: Breezy White MD APTTon 10-29-2023 aPTT Coag (Bld) [Time] 22.0 s Low 23.0-36.5 [facility] Comment on above: Result Comment: IV Heparin Therapy Range: 66.0-92.0 sec Performed By: #### P TT, HEPXA, CDP, BMPX, PT #### [address] [address] Software Project Lead: Breezy White MD Basic Metab w/rfx MGon 10-28 Anion gap [Moles/Vol] 12 mmol/L Normal 9-16 [facility] Comment on above: Performed By: #### P TT, HEPXA, CDP, BMPX, PT #### [place] [address] Software Project Lead: Breezy White MD Calcium [Mass/Vol] 8.9 mg/dL Normal 8.6-10.[address] [facility] Comment on above: Performed By: #### P TT, HEPXA, CDP, BMPX, PT #### [address] [address] Software Project Lead: Breezy White MD Chloride [Moles/Vol] 105 mmol/L Normal 98-107 [facility] Comment on above: Performed By: #### P TT, HEPXA, CDP, BMPX, PT #### [address] [address] Software Project Lead: Breezy White MD CO2 [Moles/Vol] 22 mmol/L Normal 20-[address] [facility] Comment on above: Performed By: #### P TT, HEPXA, CDP, BMPX, PT #### [address] [address] Software Project Lead: Breezy White MD Creatinine [Mass/Vol] 0.8 mg/dL Normal 0.50-0.90 [facility] Comment on above: Performed By: #### P TT, HEPXA, CDP, BMPX, PT #### [address] [address] Software Project Lead: Breezy White MD GFR/1.73 sq M.predicted among non-blacks MDRD (S/P/Bld) [Vol rate/Area] mL/min/{1.73_m2} Normal >[address] [facility] Comment on above: Result Comment: These results [...] P TT, HEPXA, CDP, BMPX, PT #### [address] [address] Software Project Lead: Breezy White MD Glucose [Mass/Vol] 82 mg/dL Normal 74-[address] [facility] Comment on above: Performed By: #### P TT, HEPXA, CDP, BMPX, PT #### [address] [address] Software Project Lead: Breezy White MD Potassium [Moles/Vol] 4.0 mmol/L Normal 3.7-5.3 [facility] Comment on above: Performed By: #### P TT, HEPXA, CDP, BMPX, PT #### [place] [address] Software Project Lead: Breezy White MD Sodium [Moles/Vol] 139 mmol/L Normal 136-[address] [facility] Comment on above: Performed By: #### P TT, HEPXA, CDP, BMPX, PT #### [address] [address] Software Project Lead: Breezy White MD Urea nitrogen [Mass/Vol] 10 mg/dL Normal 6-[address] [facility] Comment on above: Performed By: #### P TT, HEPXA, CDP, BMPX, PT #### [place] [address] Software Project Lead: Breezy White MD CBC with Diffon 10-29-2023 Abs. Basophil <0.03 Normal 0.00-0.[address] [facility] Comment on above: Performed By: #### P TT, HEPXA, CDP, BMPX, PT #### [address] [address] Software Project Lead: Breezy White MD Abs.Imm.Granulocyte <0.03 Normal 0.00-0.[address] [facility] Comment on above: Performed By: #### P TT, HEPXA, CDP, BMPX, PT #### [facility] [address] [place] [address] Software Project Lead: Breezy White MD Abs.Neutrophil (Seg) 2.93 k/uL Normal 1.50-8.10 [facility] Comment on above: Performed By: #### P TT, HEPXA, CDP, BMPX, PT #### [address] [address] Software Project Lead: Breezy White MD Basophils/100 WBC (Bld) 0 % Normal 0-[address] [facility] Comment on above: Performed By: #### P TT, HEPXA, CDP, BMPX, PT #### [address] [address] Software Project Lead: Breezy White MD Eosinophils (Bld) [#/Vol] 0.08 10*3/uL Normal 0.00-0.[address] [facility] Comment on above: Performed By: #### P TT, HEPXA, CDP, BMPX, PT #### [address] [address] Software Project Lead: Breezy White MD Eosinophils/100 WBC (Bld) 2 % Normal 1-[address] [facility] Comment on above: Performed By: #### P TT, HEPXA, CDP, BMPX, PT #### [address] [address] Software Project Lead: Breezy White MD Erythrocyte distribution width (RBC) [Ratio] 12.8 % Normal 11.8-14.[address] [facility] Comment on above: Performed By: #### P TT, HEPXA, CDP, BMPX, PT #### [address] [address] Software Project Lead: Breezy White MD Hematocrit (Bld) [Volume fraction] 38.6 % Normal 36.3-47.[address] [facility] Comment on above: Performed By: #### P TT, HEPXA, CDP, BMPX, PT #### [facility] [address] [place] [address] Software Project Lead: Breezy White MD Hemoglobin (Bld) [Mass/Vol] 12.5 g/dL Normal 11.9-15.[address] [facility] Comment on above: Performed By: #### P TT, HEPXA, CDP, BMPX, PT #### [address] [address] Software Project Lead: Breezy White MD Immature granulocytes/100 WBC (Bld) 0 % Normal [address] [facility] Comment on above: Performed By: #### P TT, HEPXA, CDP, BMPX, PT #### [address] [address] Software Project Lead: Breezy White MD Lymphocytes (Bld) [#/Vol] 1.24 10*3/uL Normal 1.10-3.[address] [facility] Comment on above: Performed By: #### P TT, HEPXA, CDP, BMPX, PT #### [address] [address] Software Project Lead: Breezy White MD Lymphocytes/100 WBC (Bld) 27 % Normal 24-[address] [facility] Comment on above: Performed By: #### P TT, HEPXA, CDP, BMPX, PT #### [address] [address] Software Project Lead: Breezy White MD MCH (RBC) [Entitic mass] 31.9 pg Normal 25.2-33.[address] [facility] Comment on above: Performed By: #### P TT, HEPXA, CDP, BMPX, PT #### [address] [address] Software Project Lead: Breezy White MD MCHC (RBC) [Mass/Vol] 32.4 g/dL Normal 28.4-34.8 [facility] Comment on above: Performed By: #### P TT, HEPXA, CDP, BMPX, PT #### [address] [place] [address] Software Project Lead: Breezy White MD MCV (RBC) [Entitic vol] 98.5 fL Normal 82.6-102.[address] [facility] Comment on above: Performed By: #### P TT, HEPXA, CDP, BMPX, PT #### [place] [address] Software Project Lead: Breezy White MD Monocytes (Bld) [#/Vol] 0.35 10*3/uL Normal 0.10-1.[address] [facility] Comment on above: Performed By: #### P TT, HEPXA, CDP, BMPX, PT #### [place] [address] Software Project Lead: Breezy White MD Monocytes/100 WBC (Bld) 8 % Normal 3-[address] [facility] Comment on above: Performed By: #### P TT, HEPXA, CDP, BMPX, PT #### [place] [address] Software Project Lead: Breezy White MD Neutrophil (Seg) 63 % Normal 36-65 [facility] Comment on above: Performed By: #### P TT, HEPXA, CDP, BMPX, PT #### [place] [address] Software Project Lead: Breezy White MD NRBC Automated 0.0 per 100 WBC Normal 0.[address] [facility] Comment on above: Performed By: #### P TT, HEPXA, CDP, BMPX, PT #### [place] [address] Software Project Lead: Breezy White MD Platelet mean volume (Bld) [Entitic vol] 10.2 fL Normal 8.1-13.[address] [facility] Comment on above: Performed By: #### P TT, HEPXA, CDP, BMPX, PT #### [address] [address] Software Project Lead: Breezy White MD Platelets (Bld) [#/Vol] 152 10*3/uL Normal 138-[address] [facility] [facility] Comment on above: Performed By: #### P TT, HEPXA, CDP, BMPX, PT #### [address] [address] Software Project Lead: Breezy White MD RBC (Bld) [#/Vol] 3.92 10*6/uL Low 3.95-5.[address] [facility] Comment on above: Performed By: #### P TT, HEPXA, CDP, BMPX, PT #### [address] [address] Software Project Lead: Breezy White MD WBC (Bld) [#/Vol] 4.6 10*3/uL Normal 3.5-11.[address] [facility] Comment on above: Performed By: #### P TT, HEPXA, CDP, BMPX, PT #### [address] [address] Software Project Lead: Breezy White MD Heparin Anti-Xaon 10-29-2023 Heparin Anti-Xa 1.59 IU/L Normal [facility] Comment on above: Performed By: #### P TT, HEPXA, CDP, BMPX, PT #### [address] [address] Software Project Lead: Breezy White MD Laboratory - Coagulationon 0 10-29-2023 aPTT Coag (Bld) [Time] 102.5 s 48.2-68.6 [facility] Comment on above: RESULTS CALLED TO YAMILE WAGNER RN @BY Tanja Jj at 0615 PTon 10-29-2023 INR Coag (PPP) [Relative time] 1.1 {INR} Normal [facility] Comment on above: Result Comment: Therapeutic Range: Moderate Anticoagulant Intensity: INR = 2.0-3.0 High Anticoagulant Intensity: INR = 2.5-3.5 Performed By: #### P TT, HEPXA, CDP, BMPX, PT #### [address] [place], [place] [id number] Software Project Lead: Breezy White MD PT Coag (PPP) [Time] 13.8 s Normal 11.7-14.9 [facility] Comment on above: Performed By: #### P TT, HEPXA, CDP, BMPX, PT #### [address] [place] [address] Software Project Lead: Breezy White MD Activated partial thrombopla stin time (aPTT) in platelet poor plasma by coagulation aon 10-28-2023 aPTT Coag (PPP) [Time] 26.7 s 22.3-36.2 [facility] Basophils Auto (Bld) [#/Vol] on 10-28-2023 Basophils (Bld) [#/Vol] 0.0 10 3/uL 0.0-0.1 [facility] Basophils/100 WBC Auto (Bld) on 10-28-2023 Basophils/100 WBC (Bld) 0.4 % 0.2-2.0 [facility] Eosinophils/100 WBC Auto (Bl d)on 10-28-2023 Eosinophils/100 WBC (Bld) 1.1 % 0.9-7.0 [facility] Erythrocyte distribution wid th Auto (RBC) [Ratio]on 10-28-2023 Erythrocyte distribution width (RBC) [Ratio] 12.8 % 11.0-15.0 [facility] Estimated glomerular filtrat ion rate (GFR) non- Americanon 10-28-2023 GFR/1.73 sq M.predicted among non-blacks MDRD (S/P/Bld) [Vol rate/Area] mL/min/{1.73_m2} >=60 [facility] Globulin Calc (S) [Mass/Vol] on 10-28-2023 Globulin (S) [Mass/Vol] 3.6 g/dL [facility] Hematocrit Auto (Bld) [Volum e fraction]on 10-28-2023 Hematocrit (Bld) [Volume fraction] 35.3 % 36.0-48.0 [facility] Hemoglobin [Mass/volume] in Bloodon 10-28-2023 Hemoglobin (Bld) [Mass/Vol] 11.6 g/dL 12.0-16.0 [facility] INR in Platelet poor plasma by Coagulation assayon 10-28-2023 INR Coag (PPP) [Relative time] 0.98 {INR} [facility] Comment on above: DESIRED INR:2.0-3.0 CONDITIONS NOT LISTED BELOW2.5-3.5 FOR PROSTHETIC HEART VALVE REPLACEMENT2.5-3.5 RECURRENT THROMBOSIS Laboratory - Chemistry and C hemistry - challengeon 10-28-2023 Albumin [Mass/Vol] 3.2 g/dL 3.4-5.0 [facility] ALP [Catalytic activity/Vol] 82 U/L 46-116 [facility] ALT [Catalytic activity/Vol] 12 U/L 14-59 [facility] AST [Catalytic activity/Vol] 15 U/L 15-37 [facility] Bilirubin [Mass/Vol] 0.4 mg/dL 0.2-1.0 [facility] Calcium [Mass/Vol] 9.1 mg/dL 8.5-10.1 [facility] Chloride [Moles/Vol] 107 mmol/L 98-107 [facility] CO2 [Moles/Vol] 27.8 mmol/L 21.0-32.0 [facility] Creatinine [Mass/Vol] 0.92 mg/dL 0.55-1.02 [facility] GFR/1.73 sq M.predicted MDRD (S/P/Bld) [Vol rate/Area] mL/min/{1.73_m2} >=60 [facility] Glucose [Mass/Vol] 90 mg/dL 74-106 [facility] Natriuretic peptide B (Bld) [Mass/Vol] 152.0 pg/mL <=450.0 [facility] Potassium [Moles/Vol] 4.0 mmol/L 3.5-5.1 [facility] Protein [Mass/Vol] 6.8 g/dL 6.4-8.2 [facility] Sodium [Moles/Vol] 141 mmol/L 136-145 [facility] Urea nitrogen [Mass/Vol] 14.0 mg/dL 7.0-18.0 [facility] Urea nitrogen/Creatinine [Mass ratio] 15.2 mg/mg [facility] Laboratory - Hematology and Cell countson 10-28-2023 Immature granulocytes/100 WBC (Bld) 0.2 % 0.0-0.5 [facility] Leukocytes [#/volume] correc nneka for nucleated erythrocytes in Blood by Automated counon 10-28-2023 WBC corrected for nucl RBC Auto (Bld) [#/Vol] 5.5 10 3/uL 4.0-11.0 [facility] Lymphocytes Auto (Bld) [#/Vo l]on 10-28-2023 Lymphocytes (Bld) [#/Vol] 1.4 10 3/uL 1.2-3.8 [facility] Lymphocytes/100 WBC Auto (Bl d)on 10-28-2023 Lymphocytes/100 WBC (Bld) 25.2 % 20.5-60.0 [facility] MCH Auto (RBC) [Entitic mass ]on 10-28-2023 MCH (RBC) [Entitic mass] 31.8 pg 26.7-34.0 [facility] MCHC Auto (RBC) [Mass/Vol]on 10-28-2023 MCHC (RBC) [Mass/Vol] 32.9 g/dL 29.9-35.2 [facility] MCV Auto (RBC) [Entitic vol] on 10-28-2023 MCV (RBC) [Entitic vol] 96.7 fL 81.0-99.0 [facility] Monocytes Auto (Bld) [#/Vol] on 10-28-2023 Monocytes (Bld) [#/Vol] 0.4 10 3/uL 0.3-0.8 [facility] Monocytes/100 WBC Auto (Bld) on 10-28-2023 Monocytes/100 WBC (Bld) 7.3 % 1.7-12.0 [facility] Neutrophils Auto (Bld) [#/Vo l]on 10-28-2023 Neutrophils (Bld) [#/Vol] 3.6 10 3/uL 1.4-6.5 [facility] Neutrophils/100 WBC Auto (Bl d)on 10-28-2023 Neutrophils/100 WBC (Bld) 65.8 % 43.0-75.0 [facility] No Panel Informationon 10-27 Eosinophils # (Auto) 0.1 10 3/uL 0.0-0.7 [facility] Immature Granulocyte # (Auto) 0.01 10 3/uL 0.00-0.03 [facility] Troponin I High Sensitivity 4.1 pg/mL 4.0-51.3 [facility] Comment on above: CUT-OFF POINTS HAVE BEEN ESTABLISHED BASED ON THE FOURTHIVERSAL DEFINITION OF MYOCARDIAL INFARCTION. THE UPPERREFERENCE LIMIT [...] volume (Bld) [Entitic vol] 9.4 fL 9.5-13.5 [facility] Platelets Auto (Bld) [#/Vol] on 10-28-2023 Platelets (Bld) [#/Vol] 154 10 3/uL 150-450 [facility] Prothrombin time (PT)on PT Coag (PPP) [Time] 10.4 s 9.0-11.6 [facility] RBC Auto (Bld) [#/Vol]on RBC (Bld) [#/Vol] 3.65 10 6/uL 4.20-5.[address] [facility] Serum or plasma albumin/glob ulin mass ratioon 10-28-2023 Albumin/Globulin [Mass ratio] 0.9 {ratio} [facility] Serum or plasma anion gap de terminationon 10-28-2023 Anion gap [Moles/Vol] 10.2 mmol/L Fi [facility] Basophils Auto (Bld) [#/Vol] on 10-27-2023 Basophils (Bld) [#/Vol] 0.0 10 3/uL 0.0-0.1 [facility] Basophils/100 WBC Auto (Bld) on 10-27-2023 Basophils/100 WBC (Bld) 0.6 % 0.2-2.0 [facility] Eosinophils/100 WBC Auto (Bl d)on 10-27-2023 Eosinophils/100 WBC (Bld) 1.9 % 0.9-7.0 [facility] Erythrocyte distribution wid th Auto (RBC) [Ratio]on 10-27-2023 Erythrocyte distribution width (RBC) [Ratio] 13.0 % 11.0-15.0 [facility] Estimated glomerular filtrat ion rate (GFR) non- Americanon 10-27-2023 GFR/1.73 sq M.predicted among non-blacks MDRD (S/P/Bld) [Vol rate/Area] mL/min/{1.73_m2} >=60 [facility] Globulin Calc (S) [Mass/Vol] on 10-27-2023 Globulin (S) [Mass/Vol] 3.3 g/dL [facility] Hematocrit Auto (Bld) [Volum e fraction]on 10-27-2023 Hematocrit (Bld) [Volume fraction] 34.1 % 36.0-48.0 [facility] Hemoglobin [Mass/volume] in Bloodon 10-27-2023 Hemoglobin (Bld) [Mass/Vol] 11.0 g/dL 12.0-16.0 [facility] INR in Platelet poor plasma by Coagulation assayon 10-27-2023 INR Coag (PPP) [Relative time] 1.02 {INR} [facility] Comment on above: DESIRED INR:2.0-3.0 CONDITIONS NOT LISTED BELOW2.5-3.5 FOR PROSTHETIC HEART VALVE REPLACEMENT2.5-3.5 RECURRENT THROMBOSIS Laboratory - Chemistry and C hemistry - challengeon 10-27-2023 Albumin [Mass/Vol] 2.8 g/dL 3.4-5.0 [facility] ALP [Catalytic activity/Vol] 74 U/L 46-116 [facility] ALT [Catalytic activity/Vol] 12 U/L 14-59 [facility] AST [Catalytic activity/Vol] 11 U/L 15-37 [facility] Bilirubin [Mass/Vol] 0.5 mg/dL 0.2-1.0 [facility] Calcium [Mass/Vol] 9.0 mg/dL 8.5-10.1 [facility] Chloride [Moles/Vol] 106 mmol/L 98-107 [facility] CO2 [Moles/Vol] 25.5 mmol/L 21.0-32.0 [facility] Creatinine [Mass/Vol] 0.76 mg/dL 0.55-1.02 [facility] GFR/1.73 sq M.predicted MDRD (S/P/Bld) [Vol rate/Area] mL/min/{1.73_m2} >=60 [facility] Glucose [Mass/Vol] 87 mg/dL 74-106 [facility] Lactate [Moles/Vol] 1.1 mmol/L 0.4-2.[address] [facility] Potassium [Moles/Vol] 4.2 mmol/L 3.5-5.1 [facility] Protein [Mass/Vol] 6.1 g/dL 6.4-8.2 [facility] Sodium [Moles/Vol] 140 mmol/L 136-145 [facility] Urea nitrogen [Mass/Vol] 8.0 mg/dL 7.0-18.0 [facility] Urea nitrogen/Creatinine [Mass ratio] 10.5 mg/mg [facility] Laboratory - Coagulationon 0 10-27-2023 aPTT Coag (Bld) [Time] 81.9 s 48.2-68.6 [facility] Comment on above: RESULTS CALLED TO Lin COFFEY)@BY Estela Montanez MLT at 0504 Laboratory - Hematology and Cell countson 10-27-2023 Immature granulocytes/100 WBC (Bld) 0.2 % 0.0-0.5 [facility] Leukocytes [#/volume] correc nneka for nucleated erythrocytes in Blood by Automated counon 10-27-2023 WBC corrected for nucl RBC Auto (Bld) [#/Vol] 4.7 10 3/uL 4.0-11.0 [facility] Lymphocytes Auto (Bld) [#/Vo l]on 10-27-2023 Lymphocytes (Bld) [#/Vol] 1.8 10 3/uL 1.2-3.8 [facility] Lymphocytes/100 WBC Auto (Bl d)on 10-27-2023 Lymphocytes/100 WBC (Bld) 37.7 % 20.5-60.0 [facility] MCH Auto (RBC) [Entitic mass ]on 10-27-2023 MCH (RBC) [Entitic mass] 31.4 pg 26.7-34.0 [facility] MCHC Auto (RBC) [Mass/Vol]on 10-27-2023 MCHC (RBC) [Mass/Vol] 32.3 g/dL 29.9-35.2 [facility] MCV Auto (RBC) [Entitic vol] on 10-27-2023 MCV (RBC) [Entitic vol] 97.4 fL 81.0-99.0 [facility] Monocytes Auto (Bld) [#/Vol] on 10-27-2023 Monocytes (Bld) [#/Vol] 0.3 10 3/uL 0.3-0.8 [facility] Monocytes/100 WBC Auto (Bld) on 10-27-2023 Monocytes/100 WBC (Bld) 7.2 % 1.7-12.0 [facility] Neutrophils Auto (Bld) [#/Vo l]on 10-27-2023 Neutrophils (Bld) [#/Vol] 2.5 10 3/uL 1.4-6.5 [facility] Neutrophils/100 WBC Auto (Bl d)on 10-27-2023 Neutrophils/100 WBC (Bld) 52.4 % 43.0-75.0 [facility] No Panel Informationon 10-26 Eosinophils # (Auto) 0.1 10 3/uL 0.0-0.7 [facility] Immature Granulocyte # (Auto) 0.01 10 3/uL 0.00-0.03 [facility] Platelet mean volume Auto (B ld) [Entitic vol]on 10-27-2023 Platelet mean volume (Bld) [Entitic vol] 9.9 fL 9.5-13.5 [facility] Platelets Auto (Bld) [#/Vol] on 10-27-2023 Platelets (Bld) [#/Vol] 122 10 3/uL 150-450 [facility] Prothrombin time (PT)on PT Coag (PPP) [Time] 10.8 s 9.0-11.6 [facility] RBC Auto (Bld) [#/Vol]on RBC (Bld) [#/Vol] 3.50 10 6/uL 4.20-5.[address] [facility] Serum or plasma albumin/glob ulin mass ratioon 10-27-2023 Albumin/Globulin [Mass ratio] 0.8 {ratio} [facility] Serum or plasma anion gap de terminationon 10-27-2023 Anion gap [Moles/Vol] 12.7 mmol/L [facility] Amorphous urine sedimenton 0 10-26-2023 Amorphous sediment LM Ql (Urine sed) FEW [facility] Automated epithelial cells c ount in urine sediment (number/area)on 10-26-2023 Epithelial cells Auto (Urine sed) [#/Area] MANY #/LPF NONE/RARE [facility] Bacteria [Presence] in Urine by Automatedon 10-26-2023 Bacteria Auto Ql (U) NONE SEEN #/HPF NONE SEEN [facility] Basophils Auto (Bld) [#/Vol] on 10-26-2023 Basophils (Bld) [#/Vol] 0.0 10 3/uL 0.0-0.1 [facility] Basophils/100 WBC Auto (Bld) on 10-26-2023 Basophils/100 WBC (Bld) 0.5 % 0.2-2.0 [facility] Bilirubin Auto test strip (U ) [Mass/Vol]on 10-26-2023 Bilirubin (U) [Mass/Vol] Negative NEGATIVE [facility] Casts typing in urine sedime nt by light microscopyon 10-26-2023 Casts LM Nom (Urine sed) NONE SEEN #/LPF NONE SEEN [facility] Eosinophils/100 WBC Auto (Bl d)on 10-26-2023 Eosinophils/100 WBC (Bld) 1.4 % 0.9-7.0 [facility] Erythrocyte distribution wid th Auto (RBC) [Ratio]on 10-26-2023 Erythrocyte distribution width (RBC) [Ratio] 12.7 % 11.0-15.0 [facility] Estimated glomerular filtrat ion rate (GFR) non- Americanon 10-26-2023 GFR/1.73 sq M.predicted among non-blacks MDRD (S/P/Bld) [Vol rate/Area] mL/min/{1.73_m2} >=60 [facility] Globulin Calc (S) [Mass/Vol] on 10-26-2023 Globulin (S) [Mass/Vol] 4.2 g/dL [facility] HCG ( test) IA.rapi d Ql (U)on 10-26-2023 HCG ( test) Ql (U) Negative NEGATIVE [facility] Hematocrit Auto (Bld) [Volum e fraction]on 10-26-2023 Hematocrit (Bld) [Volume fraction] 38.5 % 36.0-48.0 [facility] Hemoglobin [Mass/volume] in Bloodon 10-26-2023 Hemoglobin (Bld) [Mass/Vol] 12.7 g/dL 12.0-16.0 [facility] INR in Platelet poor plasma by Coagulation assayon 10-26-2023 INR Coag (PPP) [Relative time] 0.96 {INR} [facility] Comment on above: DESIRED INR:2.0-3.0 CONDITIONS NOT LISTED BELOW2.5-3.5 FOR PROSTHETIC HEART VALVE REPLACEMENT2.5-3.5 RECURRENT THROMBOSIS Laboratory - Chemistry and C hemistry - challengeon 10-26-2023 Glucose (U) [Mass/Vol] Negative NEGATIVE [facility] Ketones Ql (U) Negative NEGATIVE [facility] pH (U) 6.0 [pH] 5.0-9.0 [facility] Specific gravity (U) [Rel density] >=1.030 1.005-1.025 [facility] Urobilinogen Qn (U) 1.0 {José'U}/dL 0.2-1.0 [facility] Albumin [Mass/Vol] 3.4 g/dL 3.4-5.0 [facility] ALP [Catalytic activity/Vol] 98 U/L 46-116 [facility] ALT [Catalytic activity/Vol] 11 U/L 14-59 [facility] AST [Catalytic activity/Vol] 9 U/L 15-37 [facility] Bilirubin [Mass/Vol] 0.5 mg/dL 0.2-1.0 [facility] Calcium [Mass/Vol] 9.5 mg/dL 8.5-10.1 [facility] Chloride [Moles/Vol] 104 mmol/L 98-107 [facility] CO2 [Moles/Vol] 25.6 mmol/L 21.0-32.0 [facility] Creatinine [Mass/Vol] 0.94 mg/dL 0.55-1.02 [facility] GFR/1.73 sq M.predicted MDRD (S/P/Bld) [Vol rate/Area] mL/min/{1.73_m2} >=60 [facility] Glucose [Mass/Vol] 96 mg/dL 74-106 [facility] Lactate [Moles/Vol] 2.3 mmol/L 0.4-2.[address] [facility] Comment on above: RESULTS CALLED TO Vj COFFEY)@BY YAEL JacomeT at 2012 Natriuretic peptide B (Bld) [Mass/Vol] 55.0 pg/mL <=450.0 [facility] Potassium [Moles/Vol] 3.2 mmol/L 3.5-5.1 [facility] Protein [Mass/Vol] 7.6 g/dL 6.4-8.2 [facility] Sodium [Moles/Vol] 140 mmol/L 136-145 [facility] TSH Qn 3.806 m[IU]/L 0.358-3.740 [facility] Urea nitrogen [Mass/Vol] 10.0 mg/dL 7.0-18.0 [facility] Urea nitrogen/Creatinine [Mass ratio] 10.6 mg/mg [facility] Laboratory - Hematology and Cell countson 10-26-2023 Immature granulocytes/100 WBC (Bld) 0.3 % 0.0-0.5 [facility] Laboratory - Specimen inform ationon 10-26-2023 Appearance (U) CLEAR CLEAR [facility] Color (U) LT. YELLOW YELLOW [facility] Laboratory - Urinalysison Leukocyte esterase Test strip Ql (U) SMALL NEGATIVE [facility] Nitrite Ql (U) Negative NEGATIVE [facility] Protein Ql (U) Negative NEG/TRACE [facility] Leukocytes [#/area] in Urine sediment by Automated counton 10-26-2023 WBC Auto (Urine sed) [#/Area] NONE SEEN #/HPF 0-2 [facility] Leukocytes [#/area] in Urine sediment by Microscopy high power fieldon 10-26-2023 WBC LM.HPF (Urine sed) [#/Area] 5-10 #/HPF NONE SEEN [facility] Leukocytes [#/volume] correc nneka for nucleated erythrocytes in Blood by Automated counon 10-26-2023 WBC corrected for nucl RBC Auto (Bld) [#/Vol] 6.3 10 3/uL 4.0-11.0 [facility] Lymphocytes Auto (Bld) [#/Vo l]on 10-26-2023 Lymphocytes (Bld) [#/Vol] 1.4 10 3/uL 1.2-3.8 [facility] Lymphocytes/100 WBC Auto (Bl d)on 10-26-2023 Lymphocytes/100 WBC (Bld) 21.8 % 20.5-60.0 [facility] MCH Auto (RBC) [Entitic mass ]on 10-26-2023 MCH (RBC) [Entitic mass] 31.8 pg 26.7-34.0 [facility] MCHC Auto (RBC) [Mass/Vol]on 10-26-2023 MCHC (RBC) [Mass/Vol] 33.0 g/dL 29.9-35.2 [facility] MCV Auto (RBC) [Entitic vol] on 10-26-2023 MCV (RBC) [Entitic vol] 96.5 fL 81.0-99.0 [facility] Monocytes Auto (Bld) [#/Vol] on 10-26-2023 Monocytes (Bld) [#/Vol] 0.5 10 3/uL 0.3-0.8 [facility] Monocytes/100 WBC Auto (Bld) on 10-26-2023 Monocytes/100 WBC (Bld) 7.2 % 1.7-12.0 [facility] Mucus LM Ql (Urine sed)on Mucus Ql (Urine sed) SMALL NONE SEEN [facility] Neutrophils Auto (Bld) [#/Vo l]on 10-26-2023 Neutrophils (Bld) [#/Vol] 4.3 10 3/uL 1.4-6.5 [facility] Neutrophils/100 WBC Auto (Bl d)on 10-26-2023 Neutrophils/100 WBC (Bld) 68.8 % 43.0-75.0 [facility] No Panel Informationon 10-25 Urine Culture Reflexed YES [facility] Urine Microscopic Review YES [facility] Eosinophils # (Auto) 0.1 10 3/uL 0.0-0.7 [facility] Immature Granulocyte # (Auto) 0.02 10 3/uL 0.00-0.03 [facility] Troponin I High Sensitivity <4.0 pg/mL 4.0-51.3 [facility] Comment on above: CUT-OFF POINTS HAVE BEEN [...] volume (Bld) [Entitic vol] 9.8 fL 9.5-13.5 [facility] Platelets Auto (Bld) [#/Vol] on 10-26-2023 Platelets (Bld) [#/Vol] 138 10 3/uL 150-450 [facility] Prothrombin time (PT)on PT Coag (PPP) [Time] 10.2 s 9.0-11.6 [facility] RBC Auto (Bld) [#/Vol]on RBC (Bld) [#/Vol] 3.99 10 6/uL 4.20-5.[address] [facility] Serum or plasma albumin/glob ulin mass ratioon 10-26-2023 Albumin/Globulin [Mass ratio] 0.8 {ratio} [facility] Serum or plasma anion gap de terminationon 10-26-2023 Anion gap [Moles/Vol] 13.6 mmol/L [facility] Urine hemoglobin detection b y automated test stripon 10-26-2023 Hemoglobin Auto test strip Ql (U) Negative NEGATIVE [facility] Urine sediment crystal ident ification by light microscopyon 10-26-2023 Crystals LM Nom (Urine sed) None Seen #/HPF None Seen [facility] Cardiac Device Check - Remot michael 04-24-2023 Radiology Study observation (narrative) [facility] Work Phone: Cardiac Device Check - Remot eOrdered By: Rita Olivia on 04-24-2023 [facility] Work Phone: Office Visit (Cardiology)on 01-20-2023 Follow-up [...] Lead; Status:Active - Perform Order,Retrospective Authorization; Requested for:20Jan2023; Cardiac pacemaker, Sinus bradycardia, Sinus node dysfunction, Sinus tachycardia Interr. Device Eval - Sngl/Dual/Multiple Pacemaker; Status:Hold For - Scheduling,Retrospective Authorization; Requested for:[id number]; Class 2 obesity with body mass index [...] at the time of your visit. Lucero Lazar LPN, am scribing for and in the presence of Dr. Rita Olivia, FACC, FACP, RS The provider reviewed the following test(s) and [...] data reviewed . Outside records: OV with me June 2022 ECG June 2022 Device check June 2022 OV with me December 2021 Device check December 2021 ECG [...] arrhythmias iss (more content not included)... Normal [facility] Tobacco Screening.on 023 Adult depression screening assessment No -[facility] [address] DO Work Phone: Fall risk assessment a) No falls within the last year -[facility] [address] DO Work Phone: [phone] Tobacco use status CP b) No -[facility] [address] DO Work Phone: [phone] Alanine aminotransferase [En zymatic activity/volume] in Serum or PlasmaOrdered By: Ke Cage on 12-11-2022 ALT [Catalytic activity/Vol] 13 U/L 7-52 [facility] Albumin [Mass/volume] in Ser um or Plasma by Bromocresol green (BCG) dye binding methoOrdered By: Ke Cage on 12-11-2022 Albumin BCG dye [Mass/Vol] 4.8 g/dL 3.5-5.7 [facility] Alkaline phosphatase [Enzyma tic activity/volume] in Serum or PlasmaOrdered By: Ke Cage on 12-11-2022 ALP [Catalytic activity/Vol] 83 U/L 34-104 [facility] Amphetamine Screen Ql (U)Ord ered By: Ke Cage on 12-11-2022 Amphetamines Ql (U) Negative Negative [facility] Aspartate aminotransferase [ Enzymatic activity/volume] in Serum or PlasmaOrdered By: Ke Cage on 12-11-2022 AST [Catalytic activity/Vol] 20 U/L 13-39 [facility] Automated erythrocytes count in urine sediment (number/area)Ordered By: Ke Cage on 12-11-2022 RBC Auto (Urine sed) [#/Area] 0-1 [HPF] 0-4 [facility] Automated leukocytes count i n urine sediment (number/area)Ordered By: Ke Cage on 12-11-2022 WBC Auto (Urine sed) [#/Area] 5-9 [HPF] 0-4 [facility] Barbiturates [Presence] in U rine by Screen methodOrdered By: Ke Cage on 12-11-2022 Barbiturates Screen Ql (U) Negative Negative [facility] Basophils Auto (Bld) [#/Vol] Ordered By: Ke Cage on 12-11-2022 Basophils (Bld) [#/Vol] 0.0 10*3/uL 0.0-0.2 [facility] Basophils/100 WBC Auto (Bld) Ordered By: Ke Cage on 12-11-2022 Basophils/100 WBC (Bld) 0.7 % . [facility] Benzodiazepines Screen Ql (U )Ordered By: Ke Cage on 12-11-2022 Benzodiazepines Ql (U) Negative Negative [facility] Benzoylecgonine [Presence] i n Urine by Screen methodOrdered By: Ke Cage on 12-11-2022 Benzoylecgonine Screen Ql (U) Negative Negative [facility] Bilirubin Auto test strip Ql (U)Ordered By: Ke Cage on 12-11-2022 Bilirubin Ql (U) Negative Negative [facility] Bilirubin.total [Mass/volume ] in Serum or PlasmaOrdered By: Ke Cage on 12-11-2022 Bilirubin [Mass/Vol] 0.6 mg/dL 0.3-1.0 [facility] Calcium [Mass/volume] in Ser um or PlasmaOrdered By: Ke Cage on 12-11-2022 Calcium [Mass/Vol] 9.9 mg/dL 8.6-10.3 [facility] Cannabinoids [Presence] in U rine by Screen methodOrdered By: Ke Cage on 12-11-2022 Cannabinoids Screen Ql (U) Negative Negative [facility] Comment on above: These are unconfirme d results and should not be used for legal purposes. Drug Cut-Off Concentration: AMPH 1000 ng/mL BOO 200 ng/mL HELGA 200 ng/mL COCM 300 ng/mL OP 300 ng/mL PCP 25 ng/mL THC 20 ng/mL Carbon dioxide, total [Moles /volume] in Serum or PlasmaOrdered By: Ke Cage on 12-11-2022 CO2 [Moles/Vol] 24.2 mmol/L 21.0-31.0 [facility] Chloride [Moles/volume] in S mac or PlasmaOrdered By: Ke Cage on 12-11-2022 Chloride [Moles/Vol] 107 mmol/L 98-107 [facility] Cholesterol [Mass/volume] in Serum or PlasmaOrdered By: Eduardo Swain on 12-11-2022 Cholesterol [Mass/Vol] 229 mg/dL 140-200 [facility] Comment on above: Chol less than 200 m g/dl low riskChol 201-239 mg/dl borderline riskChol 240 mg/dl and greater high risk Cholesterol in LDL Calc [Mas s/Vol]Ordered By: Eduardo Swain on 12-11-2022 Cholesterol in LDL [Mass/Vol] 129 mg/dL 0-100 [facility] Comment on above: LDL ATP III CLASSIFI CATIONLDL less than 100 mg/dL OptimalLDL 100-129 mg/dL Near or above optimalLDL 130-159 mg/dL Borderline highLDL 160-189 mg/dL HighLDL greater than 189 mg/dL Very high Cholesterol in VLDL Calc [Ma ss/Vol]Ordered By: Eduardo Swain on 12-11-2022 Cholesterol in VLDL [Mass/Vol] 13 mg/dL [facility] Creatinine [Mass/volume] in Serum or PlasmaOrdered By: Ke Cage on 12-11-2022 Creatinine [Mass/Vol] 0.78 mg/dL 0.60-1.20 [facility] Eosinophils Auto (Bld) [#/Vo l]Ordered By: Ke Cage on 12-11-2022 Eosinophils (Bld) [#/Vol] 0.1 10*3/uL 0.0-0.45 [facility] Eosinophils/100 WBC Auto (Bl d)Ordered By: Ke Cage on 12-11-2022 Eosinophils/100 WBC (Bld) 2.2 % . [facility] Erythrocyte distribution wid th Auto (RBC) [Ratio]Ordered By: Ke Cage on 12-11-2022 Erythrocyte distribution width (RBC) [Ratio] 12.9 % 11.9-15.3 [facility] Ethanol [Mass/volume] in Ser um or PlasmaOrdered By: Ke Cage on 12-11-2022 Ethanol [Mass/Vol] mg/dL [facility] Ethanol [Mass/Vol] TNP [facility] Comment on above: Test not performed Globulin Calc (S) [Mass/Vol] Ordered By: Ke Cage on 12-11-2022 Globulin (S) [Mass/Vol] 2.7 g/dL [facility] Glucose [Mass/volume] in Ser um or PlasmaOrdered By: Ke Cage on 12-11-2022 Glucose [Mass/Vol] 87 mg/dL 70-100 [facility] Comment on above: ADA recommended refe rence rangeRandom Glucose Reference Range is dependent on time and content of last meal. Glucose of more than 200 mg/dL in a nonstressed, ambulatory subject supports the diagnosis of Diabetes Mellitus. HCG ( test) IA.rapi d Ql (U)Ordered By: Ke Cage on 12-11-2022 HCG ( test) Ql (U) Negative [facility] Hematocrit Auto (Bld) [Volum e fraction]Ordered By: Ke Cage on 12-11-2022 Hematocrit (Bld) [Volume fraction] 41.8 % 34.0-46.4 [facility] Hemoglobin [Mass/volume] in BloodOrdered By: Ke Cage on 12-11-2022 Hemoglobin (Bld) [Mass/Vol] 14.2 g/dL 11.8-15.4 [facility] Ketones Auto test strip (U) [Mass/Vol]Ordered By: Ke Cage on 12-11-2022 Ketones (U) [Mass/Vol] Negative Negative [facility] - UrinalysisOrder ed By: Ke Cage on 12-11-2022 Hyaline casts LM Ql (Urine sed) 0-8 [LPF] 0-8 [facility] Leukocytes [#/volume] correc nneka for nucleated erythrocytes in Blood by Automated counOrdered By: Ke Cage on 12-11-2022 WBC corrected for nucl RBC Auto (Bld) [#/Vol] 5.8 10*3/uL 3.8-11.6 [facility] Lymphocytes Auto (Bld) [#/Vo l]Ordered By: Ke Cage on 12-11-2022 Lymphocytes (Bld) [#/Vol] 1.7 10*3/uL 1.00-4.8 [facility] Lymphocytes/100 WBC Auto (Bl d)Ordered By: Ke Cage on 12-11-2022 Lymphocytes/100 WBC (Bld) 28.6 % . [facility] MCH Auto (RBC) [Entitic mass ]Ordered By: Ke Cage on 12-11-2022 MCH (RBC) [Entitic mass] 32.4 pg 24.7-34.3 [facility] MCHC Auto (RBC) [Mass/Vol]Or dered By: Ke Cage on 12-11-2022 MCHC (RBC) [Mass/Vol] 33.9 g/dL 32.0-35.0 [facility] MCV Auto (RBC) [Entitic vol] Ordered By: Ke Cage on 12-11-2022 MCV (RBC) [Entitic vol] 95.4 fL 80-100 [facility] Monocyte distribution width [Entitic volume] in Blood by AutomatedOrdered By: Ke Cage on 12-11-2022 Monocyte distribution width Auto (Bld) [Entitic vol] 17.61 % 0.00-20.00 [facility] Monocytes Auto (Bld) [#/Vol] Ordered By: Ke Cage on 12-11-2022 Monocytes (Bld) [#/Vol] 0.5 10*3/uL 0.0-0.8 [facility] Monocytes/100 WBC Auto (Bld) Ordered By: Ke Cage on 12-11-2022 Monocytes/100 WBC (Bld) 8.1 % . [facility] Neutrophils Auto (Bld) [#/Vo l]Ordered By: Ke Cage on 12-11-2022 Neutrophils (Bld) [#/Vol] 3.5 10*3/uL 1.8-7.7 [facility] Neutrophils/100 WBC Auto (Bl d)Ordered By: Ke Cage on 12-11-2022 Neutrophils/100 WBC (Bld) 60.4 % . [facility] No Panel InformationOrdered By: Ke Cage on 12-11-2022 Estimated GFR (CKD-EPI) > 60.0 mL/Min [facility] Creatinine Clearance (Chem 119.76 [facility] Nucleated erythrocytes [Pres ence] in Blood by Automated countOrdered By: Ke Cage on 12-11-2022 Nucleated RBC Auto Ql (Bld) 0.1 /100{WBC} 0-0.5 [facility] Opiates [Presence] in Urine by Screen methodOrdered By: Ke Cage on 12-11-2022 Opiates Screen Ql (U) Negative Negative [facility] Phencyclidine Screen Ql (U)O rdered By: Ke Cage on 12-11-2022 Phencyclidine Ql (U) Negative Negative [facility] Platelet mean volume Auto (B ld) [Entitic vol]Ordered By: Ke Cage on 12-11-2022 Platelet mean volume (Bld) [Entitic vol] 7.9 fL 6.3-10.7 [facility] Platelets Auto (Bld) [#/Vol] Ordered By: Ke Cage on 12-11-2022 Platelets (Bld) [#/Vol] 185 10*3/uL 150-450 [facility] Potassium [Moles/volume] in Serum or PlasmaOrdered By: Ke Cage on 12-11-2022 Potassium [Moles/Vol] 3.8 mmol/L 3.5-5.1 [facility] Protein Auto test strip (U) [Mass/Vol]Ordered By: Ke Cage on 12-11-2022 Protein (U) [Mass/Vol] Negative Negative [facility] Protein [Mass/volume] in Ser um or PlasmaOrdered By: Ke Cage on 12-11-2022 Protein [Mass/Vol] 7.5 g/dL 6.4-8.9 [facility] RBC Auto (Bld) [#/Vol]Ordere d By: Ke Cage on 12-11-2022 RBC (Bld) [#/Vol] 4.38 10*6/uL 3.60-5.[address] [facility] Serum or plasma albumin/glob ulin mass ratioOrdered By: Ke Cage on 12-11-2022 Albumin/Globulin [Mass ratio] 1.8 {ratio} [facility] Serum or plasma anion gap de terminationOrdered By: Ke Cage on 12-11-2022 Anion gap [Moles/Vol] 12.6 mmol/L 6.0-15.0 [facility] Serum or plasma high density lipoprotein (HDL) cholesterol measurementOrdered By: Eduardo Swain on 12-11-2022 Cholesterol in HDL [Mass/Vol] 87 mg/dL 23- [facility] Comment on above: HDL CHOL ATP-III CLA SSIFICATION Cardiovascular RiskHDL > or equal to 60 mg/dL LOWHDL < 40 mg/dL HIGH Serum or plasma total choles terol/high density lipoprotein (HDL) cholesterol mass ratOrdered By: Eduardo Swain on 12-11-2022 Cholesterol.total/Chol esterol in HDL [Mass ratio] 2.6 {ratio} <5.0 [facility] Sodium [Moles/volume] in Ser um or PlasmaOrdered By: Ke Cage on 12-11-2022 Sodium [Moles/Vol] 140 mmol/L 136-145 [facility] Squamous epithelial cells de tection in urine sediment by light microscopyOrdered By: Ke Cage on 12-11-2022 Epithelial cells.squamous LM Ql (Urine sed) 3-4 [HPF] 0-2 [facility] Thyrotropin [Units/volume] i n Serum or PlasmaOrdered By: Eduardo Swain on 12-11-2022 TSH Qn 1.24 m[IU]/L 0.45-5.33 [facility] Triglyceride [Mass/volume] i n Serum or PlasmaOrdered By: Eduardo Swain on 12-11-2022 Triglyceride [Mass/Vol] 66 mg/dL 0-149 [facility] Comment on above: TRIG ATP III CLASSIF ICATIONTRIG less than 150 mg/dL NormalTRIG 150-199 mg/dL Borderline highTRIG 200-500 mg/dL High TRIG greater than 500 mg/dL Very highStandard traceable to the Center for Disease Conrtrol and Prevention (CDC) test method. Urea nitrogen [Mass/volume] in Serum or PlasmaOrdered By: Ke Cage on 12-11-2022 Urea nitrogen [Mass/Vol] 7 mg/dL 7-25 [facility] Urine appearanceOrdered By: Ke Cage on 12-11-2022 Appearance (U) Slightly cloudy Clear [facility] Urine bacteria detection by automated methodOrdered By: Ke Cage on 12-11-2022 Bacteria Auto Ql (U) None seen None Seen [facility] Urine colorOrdered By: Ke Cage on 12-11-2022 Color (U) Yellow Yellow [facility] Urine culture routineOrdered By: Ke Cage on 12-11-2022 Bacteria identified Cx Nom (U) 2 Days [facility] Urine glucose measurement by automated test strip (mass/volume)Ordered By: Ke Cage on 12-11-2022 Glucose Auto test strip (U) [Mass/Vol] Normal mg/dL Normal [facility] Urine hemoglobin detection b y automated test stripOrdered By: Ke Cage on 12-11-2022 Hemoglobin Auto test strip Ql (U) Negative Negative [facility] Urine leukocyte esterase det ection by automated test stripOrdered By: Ke Cage on 12-11-2022 Leukocyte esterase Auto test strip Ql (U) 2+ Negative [facility] Urine nitrite detection by a utomated test stripOrdered By: Ke Cage on 12-11-2022 Nitrite Auto test strip Ql (U) Negative Negative [facility] Urobilinogen Auto test strip (U) [Mass/Vol]Ordered By: Ke Cage on 12-11-2022 Urobilinogen (U) [Mass/Vol] Normal mg/dL Normal [facility] Vitamin D+Metabolites [Mass/ volume] in Serum or PlasmaOrdered By: Eduardo Swain on 12-11-2022 Vitamin D+Metabolites [Mass/Vol] 36.5 ng/mL 30-100 [facility] Comment on above: VITAMIN D STATUS 25( [place])VITAMIN D RANGE (ng/mL) Deficient <20 Insufficient 20 to <30Sufficient 30 to 100Reference: Franklyn MF,Benjamin NC, Andreina MARQUEZ, et al. Evaluation,treatment, and prevention of vitamin D deficiency; an Endocrine Society clinical practice guideline. JCEM. 2010; 96(7):1911-30. WBC Auto (Bld) [#/Vol]Ordere d By: Ke Cage on 12-11-2022 WBC (Bld) [#/Vol] 5.8 10*3/uL 3.8-11.6 [facility] pH Auto test strip (U)Ordere d By: Ke Cage on 12-11-2022 pH (U) 1.015 [pH] 1.001-1.030 [facility] pH (U) 6.0 [pH] 5.0-9.0 [facility] Basophils Auto (Bld) [#/Vol] Ordered By: Afshan Hines on 11-01-2022 Basophils (Bld) [#/Vol] 0.0 10*3/uL 0.0-0.2 [facility] Basophils/100 WBC Auto (Bld) Ordered By: Afshan Hines on 11-01-2022 Basophils/100 WBC (Bld) 0.9 % . [facility] Calcium [Mass/volume] in Ser um or PlasmaOrdered By: Afshan Hines on 11-01-2022 Calcium [Mass/Vol] 8.8 mg/dL 8.6-10.3 [facility] Carbon dioxide, total [Moles /volume] in Serum or PlasmaOrdered By: Afshan Hines on 11-01-2022 CO2 [Moles/Vol] 26.4 mmol/L 21.0-31.0 [facility] Chloride [Moles/volume] in S mac or PlasmaOrdered By: Afshan Hines on 11-01-2022 Chloride [Moles/Vol] 107 mmol/L 98-107 [facility] Creatinine [Mass/volume] in Serum or PlasmaOrdered By: Afshan Hines on 11-01-2022 Creatinine [Mass/Vol] 0.82 mg/dL 0.60-1.20 [facility] Eosinophils Auto (Bld) [#/Vo l]Ordered By: Afshan Hines on 11-01-2022 Eosinophils (Bld) [#/Vol] 0.2 10*3/uL 0.0-0.45 [facility] Eosinophils/100 WBC Auto (Bl d)Ordered By: Afshan Hines on 11-01-2022 Eosinophils/100 WBC (Bld) 4.2 % . [facility] Erythrocyte distribution wid th Auto (RBC) [Ratio]Ordered By: Afshan Hines on 11-01-2022 Erythrocyte distribution width (RBC) [Ratio] 12.9 % 11.9-15.3 [facility] Glucose [Mass/volume] in Ser um or PlasmaOrdered By: Afshan Hines on 11-01-2022 Glucose [Mass/Vol] 74 mg/dL 70-100 [facility] Comment on above: ADA recommended refe rence rangeRandom Glucose Reference Range is dependent on time and content of last meal. Glucose of more than 200 mg/dL in a nonstressed, ambulatory subject supports the diagnosis of Diabetes Mellitus. Hematocrit Auto (Bld) [Volum e fraction]Ordered By: Afshan Hines on 11-01-2022 Hematocrit (Bld) [Volume fraction] 37.5 % 34.0-46.4 [facility] Hemoglobin [Mass/volume] in BloodOrdered By: Afshan Hines on 11-01-2022 Hemoglobin (Bld) [Mass/Vol] 12.5 g/dL 11.8-15.4 [facility] Leukocytes [#/volume] correc nneka for nucleated erythrocytes in Blood by Automated counOrdered By: Afshan Hines on 11-01-2022 WBC corrected for nucl RBC Auto (Bld) [#/Vol] 5.1 10*3/uL 3.8-11.6 [facility] Lymphocytes Auto (Bld) [#/Vo l]Ordered By: Afshan Hines on 11-01-2022 Lymphocytes (Bld) [#/Vol] 1.8 10*3/uL 1.00-4.8 [facility] Lymphocytes/100 WBC Auto (Bl d)Ordered By: Afshan Hines on 11-01-2022 Lymphocytes/100 WBC (Bld) 34.7 % . [facility] MCH Auto (RBC) [Entitic mass ]Ordered By: Afshan Hines on 11-01-2022 MCH (RBC) [Entitic mass] 32.2 pg 24.7-34.3 [facility] MCHC Auto (RBC) [Mass/Vol]Or dered By: Afshan Hines on 11-01-2022 MCHC (RBC) [Mass/Vol] 33.4 g/dL 32.0-35.0 [facility] MCV Auto (RBC) [Entitic vol] Ordered By: Afshan Hines on 11-01-2022 MCV (RBC) [Entitic vol] 96.5 fL 80-100 [facility] Monocytes Auto (Bld) [#/Vol] Ordered By: Afshan Hines on 11-01-2022 Monocytes (Bld) [#/Vol] 0.3 10*3/uL 0.0-0.8 [facility] Monocytes/100 WBC Auto (Bld) Ordered By: Afshan Hines on 11-01-2022 Monocytes/100 WBC (Bld) 6.1 % . [facility] Neutrophils Auto (Bld) [#/Vo l]Ordered By: Afshan Hines on 11-01-2022 Neutrophils (Bld) [#/Vol] 2.8 10*3/uL 1.8-7.7 [facility] Neutrophils/100 WBC Auto (Bl d)Ordered By: Afshan Hines on 11-01-2022 Neutrophils/100 WBC (Bld) 54.1 % . [facility] No Panel InformationOrdered By: Afshan Hines on 11-01-2022 Estimated GFR (CKD-EPI) > 60.0 mL/Min [facility] Creatinine Clearance (Chem 114.96 [facility] Nucleated erythrocytes [Pres ence] in Blood by Automated countOrdered By: Afshan Hines on 11-01-2022 Nucleated RBC Auto Ql (Bld) 0.1 /100{WBC} 0-0.5 [facility] Platelet mean volume Auto (B ld) [Entitic vol]Ordered By: Afshan Hines on 11-01-2022 Platelet mean volume (Bld) [Entitic vol] 7.8 fL 6.3-10.7 [facility] Platelets Auto (Bld) [#/Vol] Ordered By: Afshan Hines on 11-01-2022 Platelets (Bld) [#/Vol] 184 10*3/uL 150-450 [facility] Potassium [Moles/volume] in Serum or PlasmaOrdered By: Afshan Hines on 11-01-2022 Potassium [Moles/Vol] 4.0 mmol/L 3.5-5.1 [facility] RBC Auto (Bld) [#/Vol]Ordere d By: Afshan Hines on 11-01-2022 RBC (Bld) [#/Vol] 3.89 10*6/uL 3.60-5.[address] [facility] Serum or plasma anion gap de terminationOrdered By: Afshan Hines on 11-01-2022 Anion gap [Moles/Vol] 10.6 mmol/L 6.0-15.0 [facility] Sodium [Moles/volume] in Ser um or PlasmaOrdered By: Afshan Hines on 11-01-2022 Sodium [Moles/Vol] 140 mmol/L 136-145 [facility] Urea nitrogen [Mass/volume] in Serum or PlasmaOrdered By: Afshan Hines on 11-01-2022 Urea nitrogen [Mass/Vol] 14 mg/dL 7-25 [facility] Vitamin B12 ser/plasOrdered By: Afshan Hines on 11-01-2022 Cobalamin (Vitamin B12) [Mass/Vol] 205 pg/mL 180-914 [facility] WBC Auto (Bld) [#/Vol]Ordere d By: Afshan Hines on 11-01-2022 WBC (Bld) [#/Vol] 5.1 10*3/uL 3.8-11.6 [facility] Alanine aminotransferase [En zymatic activity/volume] in Serum or PlasmaOrdered By: Afshan Hines on 2022 ALT [Catalytic activity/Vol] 10 U/L 7-52 [facility] Albumin [Mass/volume] in Ser um or Plasma by Bromocresol green (BCG) dye binding methoOrdered By: Afshan Hines on 2022 Albumin BCG dye [Mass/Vol] 3.4 g/dL 3.5-5.7 [facility] Alkaline phosphatase [Enzyma tic activity/volume] in Serum or PlasmaOrdered By: Afshan Hines on 2022 ALP [Catalytic activity/Vol] 66 U/L 34-104 [facility] Aspartate aminotransferase [ Enzymatic activity/volume] in Serum or PlasmaOrdered By: Afshan Hines on 2022 AST [Catalytic activity/Vol] 15 U/L 13-39 [facility] Bilirubin.total [Mass/volume ] in Serum or PlasmaOrdered By: Afshan Hines on 2022 Bilirubin [Mass/Vol] 0.7 mg/dL 0.3-1.0 [facility] Globulin Calc (S) [Mass/Vol] Ordered By: Afshan Hines on 2022 Globulin (S) [Mass/Vol] 2.2 g/dL [facility] Protein [Mass/volume] in Ser um or PlasmaOrdered By: Afshan Hines on 2022 Protein [Mass/Vol] 5.6 g/dL 6.4-8.9 [facility] Serum or plasma albumin/glob ulin mass ratioOrdered By: Afshan Hines on 2022 Albumin/Globulin [Mass ratio] 1.5 {ratio} [facility] Cholesterol [Mass/volume] in Serum or PlasmaOrdered By: Nimesh Cerda on 10-29-2022 Cholesterol [Mass/Vol] 181 mg/dL 140-200 [facility] Comment on above: Chol less than 200 m g/dl low riskChol 201-239 mg/dl borderline riskChol 240 mg/dl and greater high risk Cholesterol in LDL Calc [Mas s/Vol]Ordered By: Nimesh Cerda on 10-29-2022 Cholesterol in LDL [Mass/Vol] 99 mg/dL 0-100 [facility] Comment on above: LDL ATP III CLASSIFI CATIONLDL less than 100 mg/dL OptimalLDL 100-129 mg/dL Near or above optimalLDL 130-159 mg/dL Borderline highLDL 160-189 mg/dL HighLDL greater than 189 mg/dL Very high Cholesterol in VLDL Calc [Ma ss/Vol]Ordered By: Nimesh Cerda on 10-29-2022 Cholesterol in VLDL [Mass/Vol] 18 mg/dL [facility] Serum or plasma high density lipoprotein (HDL) cholesterol measurementOrdered By: Nimesh Cerda on 10-29-2022 Cholesterol in HDL [Mass/Vol] 64 mg/dL 35-85 [facility] Comment on above: HDL CHOL ATP-III CLA SSIFICATION Cardiovascular RiskHDL > or equal to 60 mg/dL LOWHDL < 40 mg/dL HIGH Serum or plasma total choles terol/high density lipoprotein (HDL) cholesterol mass ratOrdered By: Nimesh Cerda on 10-29-2022 Cholesterol.total/Chol esterol in HDL [Mass ratio] 2.8 {ratio} <5.0 [facility] Thyrotropin [Units/volume] i n Serum or PlasmaOrdered By: Nimesh Cerda on 10-29-2022 TSH Qn 0.60 m[IU]/L 0.45-5.33 [facility] Triglyceride [Mass/volume] i n Serum or PlasmaOrdered By: Nimesh Cerda on 10-29-2022 Triglyceride [Mass/Vol] 92 mg/dL 0-149 [facility] Comment on above: TRIG ATP III CLASSIF ICATIONTRIG less than 150 mg/dL NormalTRIG 150-199 mg/dL Borderline highTRIG 200-500 mg/dL High TRIG greater than 500 mg/dL Very highStandard traceable to the Center for Disease Conrtrol and Prevention (CDC) test method. Vitamin D+Metabolites [Mass/ volume] in Serum or PlasmaOrdered By: Nimesh Cerda on 10-29-2022 Vitamin D+Metabolites [Mass/Vol] 26.3 ng/mL 30-100 [facility] Comment on above: VITAMIN D STATUS 25( [place])VITAMIN D RANGE (ng/mL) Deficient <20 Insufficient 20 to <30Sufficient 30 to 100Reference: Franklyn MF,Benjamin GRAF, Andreina MARQUEZ, et al. Evaluation,treatment, and prevention of vitamin D deficiency; an Endocrine Society clinical practice guideline. JCEM. 2010; 96(7):1911-30. Alanine aminotransferase [En zymatic activity/volume] in Serum or PlasmaOrdered By: Keven Florentino on 10-28-2022 ALT [Catalytic activity/Vol] 11 U/L 7-52 [facility] Albumin [Mass/volume] in Ser um or Plasma by Bromocresol green (BCG) dye binding methoOrdered By: Keven Florentino on 10-28-2022 Albumin BCG dye [Mass/Vol] 3.7 g/dL 3.5-5.7 [facility] Alkaline phosphatase [Enzyma tic activity/volume] in Serum or PlasmaOrdered By: Keven Florentino on 10-28-2022 ALP [Catalytic activity/Vol] 74 U/L 34-104 [facility] Amphetamine Screen Ql (U)Ord ered By: Keven Florentino on 10-28-2022 Amphetamines Ql (U) Negative Negative [facility] Aspartate aminotransferase [ Enzymatic activity/volume] in Serum or PlasmaOrdered By: Keven Florentino on 10-28-2022 AST [Catalytic activity/Vol] 15 U/L 13-39 [facility] Automated erythrocytes count in urine sediment (number/area)Ordered By: Keven Florentino on 10-28-2022 RBC Auto (Urine sed) [#/Area] 1-2 [HPF] 0-4 [facility] Automated leukocytes count i n urine sediment (number/area)Ordered By: Keven Florentino on 10-28-2022 WBC Auto (Urine sed) [#/Area] 10-19 [HPF] 0-4 [facility] Barbiturates [Presence] in U rine by Screen methodOrdered By: Keven Florentino on 10-28-2022 Barbiturates Screen Ql (U) Negative Negative [facility] Basophils Auto (Bld) [#/Vol] Ordered By: Keven Florentino on 10-28-2022 Basophils (Bld) [#/Vol] 0.0 10*3/uL 0.0-0.2 [facility] Basophils/100 WBC Auto (Bld) Ordered By: Keven Florentino on 10-28-2022 Basophils/100 WBC (Bld) 0.7 % . [facility] Benzodiazepines Screen Ql (U )Ordered By: Keven Florentino on 10-28-2022 Benzodiazepines Ql (U) Negative Negative [facility] Benzoylecgonine [Presence] i n Urine by Screen methodOrdered By: Keven Florentino on 10-28-2022 Benzoylecgonine Screen Ql (U) Negative Negative [facility] Bilirubin Test strip Ql (U)O rdered By: Keven Florentino on 10-28-2022 Bilirubin Ql (U) Negative Negative [facility] Bilirubin.total [Mass/volume ] in Serum or PlasmaOrdered By: Keven Florentino on 10-28-2022 Bilirubin [Mass/Vol] 0.5 mg/dL 0.3-1.0 [facility] Calcium [Mass/volume] in Ser um or PlasmaOrdered By: Keven Flornetino on 10-28-2022 Calcium [Mass/Vol] 8.5 mg/dL 8.6-10.3 [facility] Cannabinoids [Presence] in U rine by Screen methodOrdered By: Keven Florentino on 10-28-2022 Cannabinoids Screen Ql (U) Negative Negative [facility] Comment on above: These are unconfirme d results and should not be used for legal purposes. Drug Cut-Off Concentration: AMPH 1000 ng/mL BOO 200 ng/mL HELGA 200 ng/mL COCM 300 ng/mL OP 300 ng/mL PCP 25 ng/mL THC 20 ng/mL Carbon dioxide, total [Moles /volume] in Serum or PlasmaOrdered By: Keven Florentino on 10-28-2022 CO2 [Moles/Vol] 24.6 mmol/L 21.0-31.0 [facility] Chloride [Moles/volume] in S mac or PlasmaOrdered By: Keven Florentino on 10-28-2022 Chloride [Moles/Vol] 109 mmol/L 98-107 [facility] [facility] Color Auto (U)Ordered By: Anibal red Mishel on 10-28-2022 Color (U) Dark yellow Yellow [facility] Creatinine [Mass/volume] in Serum or PlasmaOrdered By: Keven Florentino on 10-28-2022 Creatinine [Mass/Vol] 0.70 mg/dL 0.60-1.20 [facility] Eosinophils Auto (Bld) [#/Vo l]Ordered By: Keven Florentino on 10-28-2022 Eosinophils (Bld) [#/Vol] 0.2 10*3/uL 0.0-0.45 [facility] Eosinophils/100 WBC Auto (Bl d)Ordered By: Keven Florentino on 10-28-2022 Eosinophils/100 WBC (Bld) 3.9 % . [facility] Erythrocyte distribution wid th Auto (RBC) [Ratio]Ordered By: Keven Florentino on 10-28-2022 Erythrocyte distribution width (RBC) [Ratio] 13.0 % 11.9-15.3 [facility] Ethanol [Mass/volume] in Ser um or PlasmaOrdered By: Keven Florentino on 10-28-2022 Ethanol [Mass/Vol] mg/dL [facility] Ethanol [Mass/Vol] TNP [facility] Comment on above: Test not performed Globulin Calc (S) [Mass/Vol] Ordered By: Keven Florentino on 10-28-2022 Globulin (S) [Mass/Vol] 2.4 g/dL [facility] Glucose [Mass/volume] in Ser um or PlasmaOrdered By: Keven Florentino on 10-28-2022 Glucose [Mass/Vol] 91 mg/dL 70-100 [facility] Comment on above: ADA recommended refe rence rangeRandom Glucose Reference Range is dependent on time and content of last meal. Glucose of more than 200 mg/dL in a nonstressed, ambulatory subject supports the diagnosis of Diabetes Mellitus. HCG ( test) IA.rapi d Ql (U)Ordered By: Keven Florentino on 10-28-2022 HCG ( test) Ql (U) Negative [facility] Hematocrit Auto (Bld) [Volum e fraction]Ordered By: Keven Florentino on 10-28-2022 Hematocrit (Bld) [Volume fraction] 36.0 % 34.0-46.4 [facility] Hemoglobin [Mass/volume] in BloodOrdered By: Keven Florentino on 10-28-2022 Hemoglobin (Bld) [Mass/Vol] 12.1 g/dL 11.8-15.4 [facility] Ketones Auto test strip (U) [Mass/Vol]Ordered By: Keven Florentino on 10-28-2022 Ketones (U) [Mass/Vol] Trace Negative [facility] - UrinalysisOrder ed By: Keven Florentino on 10-28-2022 Hyaline casts LM Ql (Urine sed) 0-8 [LPF] 0-8 [facility] Leukocytes [#/volume] correc nneka for nucleated erythrocytes in Blood by Automated counOrdered By: Keven Florentino on 10-28-2022 WBC corrected for nucl RBC Auto (Bld) [#/Vol] 6.1 10*3/uL 3.8-11.6 [facility] Lymphocytes Auto (Bld) [#/Vo l]Ordered By: Keven Florentino on 10-28-2022 Lymphocytes (Bld) [#/Vol] 1.2 10*3/uL 1.00-4.8 [facility] Lymphocytes/100 WBC Auto (Bl d)Ordered By: Keven Florentino on 10-28-2022 Lymphocytes/100 WBC (Bld) 19.9 % . [facility] MCH Auto (RBC) [Entitic mass ]Ordered By: Keven Florentino on 10-28-2022 MCH (RBC) [Entitic mass] 32.4 pg 24.7-34.3 [facility] MCHC Auto (RBC) [Mass/Vol]Or dered By: Keven Florentino on 10-28-2022 MCHC (RBC) [Mass/Vol] 33.7 g/dL 32.0-35.0 [facility] MCV Auto (RBC) [Entitic vol] Ordered By: Keven Florentino on 10-28-2022 MCV (RBC) [Entitic vol] 96.1 fL 80-100 [facility] Monocyte distribution width [Entitic volume] in Blood by AutomatedOrdered By: Keven Florentino on 10-28-2022 Monocyte distribution width Auto (Bld) [Entitic vol] 17.88 % 0.00-20.00 [facility] Monocytes Auto (Bld) [#/Vol] Ordered By: Keven Florentino on 10-28-2022 Monocytes (Bld) [#/Vol] 0.4 10*3/uL 0.0-0.8 [facility] Monocytes/100 WBC Auto (Bld) Ordered By: Keven Florentino on 10-28-2022 Monocytes/100 WBC (Bld) 6.5 % . [facility] Neutrophils Auto (Bld) [#/Vo l]Ordered By: Keven Florentino on 10-28-2022 Neutrophils (Bld) [#/Vol] 4.2 10*3/uL 1.8-7.7 [facility] Neutrophils/100 WBC Auto (Bl d)Ordered By: Keven Florentino on 10-28-2022 Neutrophils/100 WBC (Bld) 69.0 % . [facility] Nitrite Test strip Ql (U)Ord ered By: Keven Florentino on 10-28-2022 Nitrite Ql (U) Negative Negative [facility] No Panel InformationOrdered By: Keven Florentino on 10-28-2022 Estimated GFR (CKD-EPI) > 60.0 mL/Min [facility] Creatinine Clearance (Chem 136.41 [facility] Nucleated erythrocytes [Pres ence] in Blood by Automated countOrdered By: Keven Florentino on 10-28-2022 Nucleated RBC Auto Ql (Bld) 0.2 /100{WBC} 0-0.5 [facility] Opiates [Presence] in Urine by Screen methodOrdered By: Keven Florentino on 10-28-2022 Opiates Screen Ql (U) Negative Negative [facility] Phencyclidine Screen Ql (U)O rdered By: Keven Florentino on 10-28-2022 Phencyclidine Ql (U) Negative Negative [facility] Platelet mean volume Auto (B ld) [Entitic vol]Ordered By: Keven Florentino on 10-28-2022 Platelet mean volume (Bld) [Entitic vol] 7.5 fL 6.3-10.7 [facility] Platelets Auto (Bld) [#/Vol] Ordered By: Keven Florentino on 10-28-2022 Platelets (Bld) [#/Vol] 177 10*3/uL 150-450 [facility] Potassium [Moles/volume] in Serum or PlasmaOrdered By: Keven Florentino on 10-28-2022 Potassium [Moles/Vol] 3.8 mmol/L 3.5-5.1 [facility] Protein Auto test strip (U) [Mass/Vol]Ordered By: Keven Florentino on 10-28-2022 Protein (U) [Mass/Vol] Negative Negative [facility] Protein [Mass/volume] in Ser um or PlasmaOrdered By: Keven Florentino on 10-28-2022 Protein [Mass/Vol] 6.1 g/dL 6.4-8.9 [facility] RBC Auto (Bld) [#/Vol]Ordere d By: Keven Florentino on 10-28-2022 RBC (Bld) [#/Vol] 3.74 10*6/uL 3.60-5.[address] [facility] Serum or plasma albumin/glob ulin mass ratioOrdered By: Keven Florentino on 10-28-2022 Albumin/Globulin [Mass ratio] 1.5 {ratio} [facility] Serum or plasma anion gap de terminationOrdered By: Keven Florentino on 10-28-2022 Anion gap [Moles/Vol] 11.2 mmol/L 6.0-15.0 [facility] Sodium [Moles/volume] in Ser um or PlasmaOrdered By: Keven Florentino on 10-28-2022 Sodium [Moles/Vol] 141 mmol/L 136-145 [facility] Specific gravity Auto test s trip (U) [Rel density]Ordered By: Keven Florentino on 10-28-2022 Specific gravity (U) [Rel density] 1.024 1.001-1.030 [facility] Squamous epithelial cells de tection in urine sediment by light microscopyOrdered By: Keven Florentino on 10-28-2022 Epithelial cells.squamous LM Ql (Urine sed) 5-9 [HPF] 0-2 [facility] Urea nitrogen [Mass/volume] in Serum or PlasmaOrdered By: Keven Florentino on 10-28-2022 Urea nitrogen [Mass/Vol] 15 mg/dL 7-25 [facility] Urine bacteria detection by automated methodOrdered By: Keven Florentino on 10-28-2022 Bacteria Auto Ql (U) None seen None Seen [facility] Urine clarity by refractomet ry automatedOrdered By: Keven Florentino on 10-28-2022 Clarity Refractometry automated (U) Clear Clear [facility] Urine culture routineOrdered By: Keven Florentino on 10-28-2022 Bacteria identified Cx Nom (U) 2 Days [facility] Urine glucose measurement by automated test strip (mass/volume)Ordered By: Kveen Florentino on 10-28-2022 Glucose Auto test strip (U) [Mass/Vol] Normal mg/dL Normal [facility] Urine hemoglobin detection b y automated test stripOrdered By: Keven Florentino on 10-28-2022 Hemoglobin Auto test strip Ql (U) Negative Negative [facility] Urine leukocyte esterase det ection by automated test stripOrdered By: Keven Florentino on 10-28-2022 Leukocyte esterase Auto test strip Ql (U) 3+ Negative [facility] Urobilinogen Auto test strip (U) [Mass/Vol]Ordered By: Keven Florentino on 10-28-2022 Urobilinogen (U) [Mass/Vol] mg/dL Normal [facility] WBC Auto (Bld) [#/Vol]Ordere d By: Keven Florentino on 10-28-2022 WBC (Bld) [#/Vol] 6.1 10*3/uL 3.8-11.6 [facility] pH Auto test strip (U)Ordere d By: Keven Florentino on 10-28-2022 pH (U) 6.0 [pH] 5.0-9.0 [facility] Alanine aminotransferase [En zymatic activity/volume] in Serum or PlasmaOrdered By: Chelsie Cortez on 10-18-2022 ALT [Catalytic activity/Vol] 20 U/L 7-52 [facility] Albumin [Mass/volume] in Ser um or Plasma by Bromocresol green (BCG) dye binding methoOrdered By: Chelsie Cortez on 10-18-2022 Albumin BCG dye [Mass/Vol] 3.9 g/dL 3.5-5.7 [facility] Alkaline phosphatase [Enzyma tic activity/volume] in Serum or PlasmaOrdered By: Chelsie Cortez on 10-18-2022 ALP [Catalytic activity/Vol] 99 U/L 34-104 [facility] Aspartate aminotransferase [ Enzymatic activity/volume] in Serum or PlasmaOrdered By: Chelsie Cortez on 10-18-2022 AST [Catalytic activity/Vol] 20 U/L 13-39 [facility] Automated erythrocytes count in urine sediment (number/area)Ordered By: Chelsie Cortez on 10-18-2022 RBC Auto (Urine sed) [#/Area] 0-1 [HPF] 0-4 [facility] Automated leukocytes count i n urine sediment (number/area)Ordered By: Chelsie Cortez on 10-18-2022 WBC Auto (Urine sed) [#/Area] 20-49 [HPF] 0-4 [facility] Basophils Auto (Bld) [#/Vol] Ordered By: Chelsie Cortez on 10-18-2022 Basophils (Bld) [#/Vol] 0.0 10*3/uL 0.0-0.2 [facility] Basophils/100 WBC Auto (Bld) Ordered By: Chelsie Cortez on 10-18-2022 Basophils/100 WBC (Bld) 0.8 % . [facility] Bilirubin Test strip Ql (U)O rdered By: Chelsie Cortez on 10-18-2022 Bilirubin Ql (U) Negative Negative [facility] Bilirubin.direct [Mass/volum e] in Serum or PlasmaOrdered By: Chelsie Cortez on 10-18-2022 Bilirubin.direct [Mass/Vol] 0.10 mg/dL 0.03-0.18 [facility] Bilirubin.total [Mass/volume ] in Serum or PlasmaOrdered By: Chelsie Cortez on 10-18-2022 Bilirubin [Mass/Vol] 0.6 mg/dL 0.3-1.0 [facility] Calcium [Mass/volume] in Ser um or PlasmaOrdered By: Chelsie Cortez on 10-18-2022 Calcium [Mass/Vol] 8.8 mg/dL 8.6-10.3 [facility] Carbon dioxide, total [Moles /volume] in Serum or PlasmaOrdered By: Chelsie Cortez on 10-18-2022 CO2 [Moles/Vol] 26.5 mmol/L 21.0-31.0 [facility] Chloride [Moles/volume] in S mac or PlasmaOrdered By: Chelsie Cortez on 10-18-2022 Chloride [Moles/Vol] 107 mmol/L 98-107 [facility] Color Auto (U)Ordered By: Jose Cortez on 10-18-2022 Color (U) Yellow Yellow [facility] Creatinine [Mass/volume] in Serum or PlasmaOrdered By: Chelsie Cortez on 10-18-2022 Creatinine [Mass/Vol] 0.83 mg/dL 0.60-1.20 [facility] Eosinophils Auto (Bld) [#/Vo l]Ordered By: Chelsie Cortez on 10-18-2022 Eosinophils (Bld) [#/Vol] 0.1 10*3/uL 0.0-0.45 [facility] Eosinophils/100 WBC Auto (Bl d)Ordered By: Chelsie Cortez on 10-18-2022 Eosinophils/100 WBC (Bld) 1.2 % . [facility] Erythrocyte distribution wid th Auto (RBC) [Ratio]Ordered By: Chelsie Cortez on 10-18-2022 Erythrocyte distribution width (RBC) [Ratio] 13.1 % 11.9-15.3 [facility] Globulin Calc (S) [Mass/Vol] Ordered By: Chelsie Cortez on 10-18-2022 Globulin (S) [Mass/Vol] 2.8 g/dL [facility] Glucose [Mass/volume] in Ser um or PlasmaOrdered By: Chelsie Cortez on 10-18-2022 Glucose [Mass/Vol] 101 mg/dL 70-100 [facility] Comment on above: ADA recommended refe rence rangeRandom Glucose Reference Range is dependent on time and content of last meal. Glucose of more than 200 mg/dL in a nonstressed, ambulatory subject supports the diagnosis of Diabetes Mellitus. HCG ( test) IA.rapi d Ql (U)Ordered By: Chelsie Cortez on 10-18-2022 HCG ( test) Ql (U) Negative [facility] Hematocrit Auto (Bld) [Volum e fraction]Ordered By: Chelsie Cortez on 10-18-2022 Hematocrit (Bld) [Volume fraction] 35.1 % 34.0-46.4 [facility] Hemoglobin [Mass/volume] in BloodOrdered By: Chelsie Cortez 10-18-2022 Hemoglobin (Bld) [Mass/Vol] 12.0 g/dL 11.8-15.4 [facility] Ketones Auto test strip (U) [Mass/Vol]Ordered By: Chelsie Cortez on 10-18-2022 Ketones (U) [Mass/Vol] Negative Negative [facility] - UrinalysisOrder ed By: Chelsie Cortez on 10-18-2022 Hyaline casts LM Ql (Urine sed) 0-8 [LPF] 0-8 [facility] Leukocytes [#/volume] correc nneka for nucleated erythrocytes in Blood by Automated counOrdered By: Chelsie Cortez on 10-18-2022 WBC corrected for nucl RBC Auto (Bld) [#/Vol] 6.3 10*3/uL 3.8-11.6 [facility] Lipase [Enzymatic activity/v olume] in Serum or PlasmaOrdered By: Chelsie Cortez on 10-18-2022 Lipase [Catalytic activity/Vol] 42.0 U/L 11.0-82.0 [facility] Lymphocytes Auto (Bld) [#/Vo l]Ordered By: Chelsie Cortez on 10-18-2022 Lymphocytes (Bld) [#/Vol] 1.4 10*3/uL 1.00-4.8 [facility] Lymphocytes/100 WBC Auto (Bl d)Ordered By: Chelsie Cortez on 10-18-2022 Lymphocytes/100 WBC (Bld) 22.0 % . [facility] MCH Auto (RBC) [Entitic mass ]Ordered By: Chelsie Cortez on 10-18-2022 MCH (RBC) [Entitic mass] 33.0 pg 24.7-34.3 [facility] MCHC Auto (RBC) [Mass/Vol]Or dered By: Chelsie Cortez on 10-18-2022 MCHC (RBC) [Mass/Vol] 34.2 g/dL 32.0-35.0 [facility] MCV Auto (RBC) [Entitic vol] Ordered By: Chelsie Cortez on 10-18-2022 MCV (RBC) [Entitic vol] 96.5 fL 80-100 [facility] Magnesium [Mass/volume] in S mac or PlasmaOrdered By: Chelsie Cortez on 10-18-2022 Magnesium [Mass/Vol] 2.1 mg/dL 1.9-2.7 [facility] Monocytes Auto (Bld) [#/Vol] Ordered By: Chelsie Cortez on 10-18-2022 Monocytes (Bld) [#/Vol] 0.5 10*3/uL 0.0-0.8 [facility] Monocytes/100 WBC Auto (Bld) Ordered By: Chelsie Cortez on 10-18-2022 Monocytes/100 WBC (Bld) 7.2 % . [facility] Neutrophils Auto (Bld) [#/Vo l]Ordered By: Chelsie Cortez on 10-18-2022 Neutrophils (Bld) [#/Vol] 4.3 10*3/uL 1.8-7.7 [facility] Neutrophils/100 WBC Auto (Bl d)Ordered By: Chelsie Cortez on 10-18-2022 Neutrophils/100 WBC (Bld) 68.8 % . [facility] Nitrite Test strip Ql (U)Ord ered By: Chelsie Cortez on 10-18-2022 Nitrite Ql (U) Negative Negative [facility] No Panel InformationOrdered By: Chelsie Cortez on 10-18-2022 Estimated GFR (CKD-EPI) > 60.0 mL/Min [facility] Creatinine Clearance (Chem 115.47 [facility] Nucleated erythrocytes [Pres ence] in Blood by Automated countOrdered By: Chelsie Cortez on 10-18-2022 Nucleated RBC Auto Ql (Bld) 0.1 /100{WBC} 0-0.5 [facility] Platelet mean volume Auto (B ld) [Entitic vol]Ordered By: Chelsie Cortez on 10-18-2022 Platelet mean volume (Bld) [Entitic vol] 7.6 fL 6.3-10.7 [facility] Platelets Auto (Bld) [#/Vol] Ordered By: Chelsie Cortez on 10-18-2022 Platelets (Bld) [#/Vol] 170 10*3/uL 150-450 [facility] Potassium [Moles/volume] in Serum or PlasmaOrdered By: Chelsie Cortez on 10-18-2022 Potassium [Moles/Vol] 4.2 mmol/L 3.5-5.1 [facility] Protein Auto test strip (U) [Mass/Vol]Ordered By: Chelsie Cortez on 10-18-2022 Protein (U) [Mass/Vol] Negative Negative [facility] Protein [Mass/volume] in Ser um or PlasmaOrdered By: Chelsie Cortez on 10-18-2022 Protein [Mass/Vol] 6.7 g/dL 6.4-8.9 [facility] RBC Auto (Bld) [#/Vol]Ordere d By: Chelsie Cortez on 10-18-2022 RBC (Bld) [#/Vol] 3.64 10*6/uL 3.60-5.[address] [facility] Serum or plasma albumin/glob ulin mass ratioOrdered By: Chelsie Cortez on 10-18-2022 Albumin/Globulin [Mass ratio] 1.4 {ratio} [facility] Serum or plasma anion gap de terminationOrdered By: Chelsie Cortez on 10-18-2022 Anion gap [Moles/Vol] 9.7 mmol/L 6.0-15.0 [facility] Serum or plasma non-glucuron idated bilirubin measurement (mass/volume)Ordered By: Chelsie Cortez on 10-18-2022 Bilirubin.indirect [Mass/Vol] 0.5 mg/dL [facility] Sodium [Moles/volume] in Ser um or PlasmaOrdered By: Chelsie Cortez 10-18-2022 Sodium [Moles/Vol] 139 mmol/L 136-145 [facility] Specific gravity Auto test s trip (U) [Rel density]Ordered By: Chelsie Cortez on 10-18-2022 Specific gravity (U) [Rel density] 1.011 1.001-1.030 [facility] Squamous epithelial cells de tection in urine sediment by light microscopyOrdered By: Chelsie Cortez 10-18-2022 Epithelial cells.squamous LM Ql (Urine sed) 3-4 [HPF] 0-2 [facility] Urea nitrogen [Mass/volume] in Serum or PlasmaOrdered By: Chelsie Cortez 10-18-2022 Urea nitrogen [Mass/Vol] 9 mg/dL 7-25 [facility] Urine bacteria detection by automated methodOrdered By: Chelsie Cortez 10-18-2022 Bacteria Auto Ql (U) None seen None Seen [facility] Urine clarity by refractomet ry automatedOrdered By: Chelsie Cortez on 10-18-2022 Clarity Refractometry automated (U) Clear Clear [facility] Urine culture routineOrdered By: Chelsie Cortez 10-18-2022 Bacteria identified Cx Nom (U) 2 Days [facility] Urine glucose measurement by automated test strip (mass/volume)Ordered By: Chelsie Cortez on 10-18-2022 Glucose Auto test strip (U) [Mass/Vol] Normal mg/dL Normal [facility] Urine hemoglobin detection b y automated test stripOrdered By: Chelsie Cortez on 10-18-2022 Hemoglobin Auto test strip Ql (U) Negative Negative [facility] Urine leukocyte esterase det ection by automated test stripOrdered By: Chelsie Cortez on 10-18-2022 Leukocyte esterase Auto test strip Ql (U) 3+ Negative [facility] Urobilinogen Auto test strip (U) [Mass/Vol]Ordered By: Chelsei Cortez on 10-18-2022 Urobilinogen (U) [Mass/Vol] Normal mg/dL Normal [facility] WBC Auto (Bld) [#/Vol]Ordere d By: Chelsie Cortez on 10-18-2022 WBC (Bld) [#/Vol] 6.3 10*3/uL 3.8-11.6 [facility] pH Auto test strip (U)Ordere d By: Chelsie Cortez on 10-18-2022 pH (U) 5.5 [pH] 5.0-9.0 [facility] AMYLASEon 10-16-2022 Amylase [Catalytic activity/Vol] 42 U/L Normal 25-115 [facility] Comment on above: Performed By: #### C MP, LIPA, GRETTA #### [facility] [address] [address] [address] Kinjal Rivers CBC AUTO DIFFon 10-16-2022 BASO # 0.0 103/ul Normal 0.0-0.1 [facility] Comment on above: Performed By: #### C BC #### [facility] [address] [address] [address] Kinjal Rivers Basophils/100 WBC (Bld) 0.6 % Normal 0.2-2.0 [facility] Comment on above: Performed By: #### C BC #### [facility] [address] [address] [address] Kinjal Rivers EO # 0.1 103/ul Normal 0.0-0.7 [facility] Comment on above: Performed By: #### C BC #### [facility] [address] [place] [address] Dr. Kinjal Rivers Eosinophils/100 WBC (Bld) 2.1 % Normal 0.9-7.0 [facility] Comment on above: Performed By: #### C BC #### [facility] [address] [place] [address] Dr. Kinjal Rivers Erythrocyte distribution width (RBC) [Ratio] 12.4 % Normal 11.0-15.0 [facility] Comment on above: Performed By: #### C BC #### [facility] [address] [place] [address] Dr. Kinjal Rivers Hematocrit (Bld) [Volume fraction] 38.3 % Normal 36.0-48.0 [facility] Comment on above: Performed By: #### C BC #### [facility] [address] [place] [address] Dr. Kinjal Rivers Hemoglobin (Bld) [Mass/Vol] 12.8 g/dL Normal 12.0-16.0 [facility] Comment on above: Performed By: #### C BC #### [facility] [address] [place] [address] Dr. Kinjal Rivers IG # 0.02 10e3/ul Normal 0.00-0.03 [facility] Comment on above: Performed By: #### C BC #### [facility] [address] [place] [address] Dr. Kinjal Rivers IG % 0.3 % Normal 0.0-0.5 [facility] Comment on above: Performed By: #### C BC #### [facility] [address] [place] [address] Dr. Kinjal Rivers LYMPH # 1.5 103/ul Normal 1.2-3.8 [facility] Comment on above: Performed By: #### C BC #### [facility] [address] [place] [address] Dr. Kinjal Rivers Lymphocytes/100 WBC (Bld) 24.1 % Normal 20.5-60.0 [facility] Comment on above: Performed By: #### C BC #### [facility] [address] [place] [address] Dr. Kinjal Rivers MANUAL DIFF REQ NO Normal [facility] Comment on above: Performed By: #### C BC #### [facility] [address] [place] [address] Dr. Kinjal Rivers MCH (RBC) [Entitic mass] 32.7 pg Normal 26.7-34.0 [facility] Comment on above: Performed By: #### C BC #### [facility] [address] [place] [address] Dr. Kinjal Rivers MCHC (RBC) [Mass/Vol] 33.4 g/dL Normal 29.9-35.2 [facility] Comment on above: Performed By: #### C BC #### [facility] [address] [place] [address] Dr. Kinjal Rivers MCV (RBC) [Entitic vol] 97.7 fL Normal 81.0-99.0 [facility] Comment on above: Performed By: #### C BC #### [facility] [address] [place] [address] Dr. Kinjal Rivers MONO # 0.3 103/ul Normal 0.3-0.8 [facility] Comment on above: Performed By: #### C BC #### [facility] [address] [place] [address] Dr. Kinjal Rivers Monocytes/100 WBC (Bld) 5.5 % Normal 1.7-12.0 [facility] Comment on above: Performed By: #### C BC #### [facility] [address] [place] [address] Dr. Kinjal Rivers NEUT # 4.2 103/ul Normal 1.4-6.5 [facility] Comment on above: Performed By: #### C BC #### [facility] [address] [place] [address] Dr. Kinjal Rivers Neutrophils/100 WBC (Bld) 67.4 % Normal 43.0-75.0 [facility] Comment on above: Performed By: #### C BC #### [facility] [address] [address] [address] Kinjal Rivers Platelet mean volume (Bld) [Entitic vol] 9.2 fL Critically low 9.5-13.5 [facility] Comment on above: Performed By: #### C BC #### [facility] [address] [place] [address] Dr. Kinjal Rivers PLT 184 103/ul Normal 150-450 [facility] Comment on above: Performed By: #### C BC #### [facility] [address] [address] [address] Kinjal Rivers RBC 3.92 106/ul Critically low 4.20-5.40 [facility] Comment on above: Performed By: #### C BC #### [facility] [address] [place] [address] Dr. Kinjal Rivers WBC 6.2 103/ul Normal 4.0-11.0 [facility] Comment on above: Performed By: #### C BC #### [facility] [address] [place] [address] Dr. Kinjal Rivers CULTURE URINEon 10-16-2022 CULTURE URINE Culture Observations : LIGHT GROWTH OF MIXED GENITAL YOGESH. NO POTENTIAL PATHOGENS SEEN. Normal [facility] Comment on above: Performed By: #### U RCX #### [facility] [address] [place] [address] Dr. Kinjal Rivesr ER URINE PROFILEon 3 Bilirubin Ql (U) Negative Normal NEGATIVE The [facility] Comment on above: Performed By: #### U MICRO, ERUR #### [facility] [address] [place] [address] Dr. Kinjal Rivers Clarity (U) SL CLOUDY Abnormal CLEAR The [facility] Comment on above: Performed By: #### U MICRO, ERUR #### [facility] [address] [place] [address] Dr. Kinjal Rivers Color (U) LT. YELLOW Normal YELLOW [facility] Comment on above: Performed By: #### U MICRO, ERUR #### [facility] [address] [address] [address] Kinjal SLAUGHTER A micrscopic examina tion will be performed if indicated. Normal The [facility] Comment on above: Performed By: #### U MICRO, ERUR #### [facility] [address] [address] [address] Kinjal Rivers Glucose Ql (U) Negative Normal NEGATIVE The [facility] Comment on above: Performed By: #### U MICRO, ERUR #### [facility] [address] [address] [address] Kinjal Rivers Hemoglobin Ql (U) Negative Normal NEGATIVE The [facility] Comment on above: Performed By: #### U MICRO, ERUR #### [facility] [address] [place] [address] Dr. Kinjal Rivers Ketones Ql (U) Negative Normal NEGATIVE The [facility] Comment on above: Performed By: #### U MICRO, ERUR #### [facility] [address] [place] [address] Dr. Kinjal Rivers LEUKOCYTES TRACE Abnormal NEGATIVE [facility] Comment on above: Performed By: #### U MICRO, ERUR #### [facility] [address] [address] [address] Kinjal Rivers Nitrite Ql (U) Negative Normal NEGATIVE The [facility] Comment on above: Performed By: #### U MICRO, ERUR #### [facility] [address] [place] [address] Dr. Kinjal Rivers pH (U) 5.0 [pH] Normal 5-9 The [facility] Comment on above: Performed By: #### U MICRO, ERUR #### [facility] [address] [place] [address] Dr. Kinjal Rivers SPEC GRAVITY 1.030 Abnormal 1.005-<=1.0 25 The [facility] Comment on above: Performed By: #### U MICRO, ERUR #### [facility] [address] [place] [address] Dr. Kinjal Rivers UA PROTEIN Negative Normal NEGATIVE/ TRACE The [facility] Comment on above: Performed By: #### U MICRO, ERUR #### [facility] [address] [place] [address] Dr. Kinjal Rivers UR MICRO IND INDICATED Normal [facility] Comment on above: Performed By: #### U MICRO, ERUR #### [facility] [address] [place] [address] Dr. Kinjal Rivers Urobilinogen Qn (U) 1.0 {José'U}/dL Normal 0.2 - 1. 0 [facility] Comment on above: Performed By: #### U MICRO, ERUR #### [facility] [address] [place] [address] Dr. Kinjal Rivers LIPASEon 10-16-2022 Lipase [Catalytic activity/Vol] 133.0 U/L Normal 73.0-393.0 [facility] Comment on above: Performed By: #### C MP, LIPA, GRETTA #### [facility] [address] [place] [address] Dr. Kinjal Rivers PROF 14(COMP METB)on 023 Albumin [Mass/Vol] 3.7 g/dL Normal 3.4-5.0 [facility] Comment on above: Performed By: #### C MP, LIPA, GRETTA #### [facility] [address] [place] [address] Dr. Kinjal Rivers Albumin/Globulin [Mass ratio] 1.0 {ratio} Normal [facility] Comment on above: Performed By: #### C MP, LIPA, GRETTA #### [facility] [address] [place] [address] Dr. Kinjal Rivers ALP [Catalytic activity/Vol] 101 U/L Normal 46-116 The [facility] Comment on above: Performed By: #### C MP, LIPA, GRETTA #### [facility] [address] [place] [address] Dr. Kinjal Rivers ALT [Catalytic activity/Vol] 27 U/L Normal 14-59 [facility] Comment on above: Performed By: #### C MP, LIPA, GRETTA #### [facility] [address] [place] [address] Dr. Kinjal Rivers Anion gap [Moles/Vol] 13.4 mmol/L Normal Th e [facility] Comment on above: Performed By: #### C YOVANI SCHUMACHER, GRETTA #### [facility] [address] [place] [address] Dr. Kinjal Rivers AST [Catalytic activity/Vol] 23 U/L Normal 15-37 [facility] Comment on above: Performed By: #### C YOVANI SCHUMACHER, GRETTA #### [facility] [address] [place] [address] Dr. Kinjal Rivers Bilirubin [Mass/Vol] 0.6 mg/dL Normal 0.2-1.0 [facility] Comment on above: Performed By: #### C YOVANI SCHUMACHER, GRETTA #### [facility] [address] [place] [address] Dr. Kinjal Rivers Calcium [Mass/Vol] 9.1 mg/dL Normal 8.5-10.1 [facility] Comment on above: Performed By: #### C YOVANI SCHUMACHER, GRETTA #### [facility] [address] [place] [address] Dr. Kinjal Rivers Chloride [Moles/Vol] 105 mmol/L Normal 98-107 The [facility] Comment on above: Performed By: #### C YOVANI SCHUMACHER, GRETTA #### [facility] [address] [place] [address] Dr. Kinjal Rivers CO2 [Moles/Vol] 25.3 mmol/L Normal 21.0-32.0 [facility] Comment on above: Performed By: #### C LANDON SCHUMACHERA, GRETTA #### [facility] [address] [place] [address] Dr. Kinjal Rivers Creatinine [Mass/Vol] 0.96 mg/dL Normal 0.55-1.02 The [facility] Comment on above: Performed By: #### C YOVANI SCHUMACHER, GRETTA #### [facility] [address] [place] [address] Dr. Kinjal Rivers EGFR-AF CYMRO >60 Normal >=60 The [facility] Comment on above: Performed By: #### C LANDON SCHUMACHERA, GRETTA #### [facility] [address] [address] [address] Kinjal Rivers EGFR-NON AF CYMRO >60 Normal >=60 The [facility] Comment on above: Performed By: #### C YOVANI SCHUMACHER AMY #### [facility] [address] [place] [address] Dr. Kinjal Rivers Globulin (S) [Mass/Vol] 3.6 g/dL Normal [facility] Comment on above: Performed By: #### C YOVANI SCHUMACHER, GRETTA #### [facility] [address] [place] [address] Dr. Kinjal Rivers Glucose [Mass/Vol] 93 mg/dL Normal 74-106 The [facility] Comment on above: Performed By: #### C YOVANI SCHUMACHER, GRETTA #### [facility] [address] [place] [address] Dr. Kinjal Rivers Potassium [Moles/Vol] 3.7 mmol/L Normal 3.5-5.1 The [facility] Comment on above: Performed By: #### C YOVANI SCHUMACHER, GRETTA #### [facility] [address] [place] [address] Dr. Kinjal Rivers Protein [Mass/Vol] 7.3 g/dL Normal 6.4-8.2 [facility] Comment on above: Performed By: #### C YOVANI SCHUMACHER, GRETTA #### [facility] [address] [place] [address] Dr. Kinjal Rivers Sodium [Moles/Vol] 140 mmol/L Normal 136-145 The [facility] Comment on above: Performed By: #### C YOVANI SCHUMACHER, GRETTA #### [facility] [address] [place] [address] Dr. Kinjal Rivers Urea nitrogen [Mass/Vol] 9.0 mg/dL Normal 7.0-18.0 [facility] Comment on above: Performed By: #### C YOVANI SCHUMACHER, GRETTA #### [facility] [address] [place] [address] Dr. Kinjal Rivers Urea nitrogen/Creatinine [Mass ratio] 9.4 mg/mg Normal [facility] Comment on above: Performed By: #### C MP, LIPA, GRETTA #### [facility] [address] [address] [address] Kinjal Rivers URINE MICROSCOPIC ONLYon BACTERIA TRACE Abnormal NONE SEEN The [facility] Comment on above: Performed By: #### U MICRO, ERUR #### [facility] [address] [place] [address] Dr. Kinjal Rivers Bacteria identified Cx Nom (U) INDICATED Normal The [facility] Comment on above: Performed By: #### U MICRO, ERUR #### [facility] [address] [place] [address] Dr. Kinjal Rivers CAST NONE SEEN Normal NONE SEEN The [facility] Comment on above: Performed By: #### U MICRO, ERUR #### [facility] [address] [place] [address] Dr. Kinjal Rivers Crystals LM Nom (Urine sed) NONE SEEN Normal NONE SEEN The [facility] Comment on above: Performed By: #### U MICRO, ERUR #### [facility] [address] [place] [address] Dr. Kinjal Rivers Epithelial cells LM Ql (Urine sed) FEW Abnormal NONE SEEN /RARE The [facility] Comment on above: Performed By: #### U MICRO, ERUR #### [facility] [address] [place] [address] Dr. Kinjal Rivers MUCOUS NONE SEEN Normal NONE SEEN The [facility] Comment on above: Performed By: #### U MICRO, ERUR #### [facility] [address] [place] [address] Dr. Kinjal Rivers RBC NONE SEEN Abnormal 0-2 The [facility] Comment on above: Performed By: #### U MICRO, ERUR #### [facility] [address] [place] [address] Dr. Kinjal Rivers WBC 2-5 Abnormal NONE SEEN The [facility] Comment on above: Performed By: #### U MICRO, ERUR #### [facility] [address] [place] [address] Dr. Kinjal Rivers Activated partial thrombopla stin time (aPTT) in platelet poor plasma by coagulation aOrdered By: Michael Cerda on 09-28-2022 aPTT Coag (PPP) [Time] 24.9 s 25.1-36.5 [facility] Automated erythrocytes count in urine sediment (number/area)Ordered By: Michael Cerda on 09-28-2022 RBC Auto (Urine sed) [#/Area] 0-1 [HPF] 0-4 [facility] Automated leukocytes count i n urine sediment (number/area)Ordered By: Michael Cerda on 09-28-2022 WBC Auto (Urine sed) [#/Area] 10-19 [HPF] 0-4 [facility] Basophils Auto (Bld) [#/Vol] Ordered By: Michael Cerda on 09-28-2022 Basophils (Bld) [#/Vol] 0.0 10*3/uL 0.0-0.2 [facility] Basophils/100 WBC Auto (Bld) Ordered By: Michael Cerda on 09-28-2022 Basophils/100 WBC (Bld) 0.5 % . [facility] Bilirubin Test strip Ql (U)O rdered By: Michael Cerda on 09-28-2022 Bilirubin Ql (U) Negative Negative [facility] COVID CepheidOrdered By: Janee Cerda on 09-28-2022 SARS-CoV-2 (COVID-19) Ab IA Ql Negative Negative [facility] Comment on above: This is a duplicate [employer] Xpert Xpress CoV-2/Flu/RSV Plus RNA by RT-PCR result to be used for statistical tracking purpose only. SARS-CoV-2 (COVID-19) RNA CRISTINA+probe Ql (Unsp spec) [facility] Calcium [Mass/volume] in Ser um or PlasmaOrdered By: Michael Cerda on 09-28-2022 Calcium [Mass/Vol] 9.3 mg/dL 8.6-10.3 [facility] Carbon dioxide, total [Moles /volume] in Serum or PlasmaOrdered By: Michael Cerda on 09-28-2022 CO2 [Moles/Vol] 23.7 mmol/L 21.0-31.0 [facility] Chloride [Moles/volume] in S mac or PlasmaOrdered By: Michael Cerda on 09-28-2022 Chloride [Moles/Vol] 105 mmol/L 98-107 [facility] Color Auto (U)Ordered By: Lorene Cerda on 09-28-2022 Color (U) Yellow Yellow [facility] Creatine kinase [Enzymatic a ctivity/volume] in Serum or PlasmaOrdered By: Michael Cerda on 09-28-2022 CK [Catalytic activity/Vol] 60 U/L 30-223 [facility] Creatinine [Mass/volume] in Serum or PlasmaOrdered By: Michael Cerda on 09-28-2022 Creatinine [Mass/Vol] 0.81 mg/dL 0.60-1.20 [facility] Eosinophils Auto (Bld) [#/Vo l]Ordered By: Michael Cerda on 09-28-2022 Eosinophils (Bld) [#/Vol] 0.0 10*3/uL 0.0-0.45 [facility] Eosinophils/100 WBC Auto (Bl d)Ordered By: Michael Cerda on 09-28-2022 Eosinophils/100 WBC (Bld) 0.2 % . [facility] Erythrocyte distribution wid th Auto (RBC) [Ratio]Ordered By: Michael Cerda on 09-28-2022 Erythrocyte distribution width (RBC) [Ratio] 13.5 % 11.9-15.3 [facility] Glucose [Mass/volume] in Ser um or PlasmaOrdered By: Michael Cerda on 09-28-2022 Glucose [Mass/Vol] 103 mg/dL 70-100 [facility] Comment on above: ADA recommended refe rence rangeRandom Glucose Reference Range is dependent on time and content of last meal. Glucose of more than 200 mg/dL in a nonstressed, ambulatory subject supports the diagnosis of Diabetes Mellitus. Hematocrit Auto (Bld) [Volum e fraction]Ordered By: Michael Cerda on 09-28-2022 Hematocrit (Bld) [Volume fraction] 38.9 % 34.0-46.4 [facility] Hemoglobin [Mass/volume] in BloodOrdered By: Michael Cerda on 09-28-2022 Hemoglobin (Bld) [Mass/Vol] 13.2 g/dL 11.8-15.4 [facility] Ketones Auto test strip (U) [Mass/Vol]Ordered By: Michael Cerda on 09-28-2022 Ketones (U) [Mass/Vol] Negative Negative [facility] - CoagulationOrde red By: Michael Cerda on 09-28-2022 PT Coag (PPP) [Time] 12.0 s 9.0-12.9 [facility] - UrinalysisOrder ed By: Michael Cerda on 09-28-2022 Hyaline casts LM Ql (Urine sed) 0-8 [LPF] 0-8 [facility] Leukocytes [#/volume] correc nneka for nucleated erythrocytes in Blood by Automated counOrdered By: Michael Cerda on 09-28-2022 WBC corrected for nucl RBC Auto (Bld) [#/Vol] 5.1 10*3/uL 3.8-11.6 [facility] Lymphocytes Auto (Bld) [#/Vo l]Ordered By: Michael Cerda on 09-28-2022 Lymphocytes (Bld) [#/Vol] 0.6 10*3/uL 1.00-4.8 [facility] Lymphocytes/100 WBC Auto (Bl d)Ordered By: Michael Cerda on 09-28-2022 Lymphocytes/100 WBC (Bld) 11.0 % . [facility] MCH Auto (RBC) [Entitic mass ]Ordered By: Michael Cerda on 09-28-2022 MCH (RBC) [Entitic mass] 33.0 pg 24.7-34.3 [facility] MCHC Auto (RBC) [Mass/Vol]Or dered By: Michael Cerda on 09-28-2022 MCHC (RBC) [Mass/Vol] 34.0 g/dL 32.0-35.0 [facility] MCV Auto (RBC) [Entitic vol] Ordered By: Michael Cerda on 09-28-2022 MCV (RBC) [Entitic vol] 97.0 fL 80-100 [facility] Monocyte distribution width [Entitic volume] in Blood by AutomatedOrdered By: Michael Cerda on 09-28-2022 Monocyte distribution width Auto (Bld) [Entitic vol] 24.75 % 0.00-20.00 [facility] Comment on above: For adults in ED, MD W > 20.0 may be associated with a higher risk of sepsis during the first 12 hrs of hospital admission Monocytes Auto (Bld) [#/Vol] Ordered By: Michael Cerda on 09-28-2022 Monocytes (Bld) [#/Vol] 0.3 10*3/uL 0.0-0.8 [facility] Monocytes/100 WBC Auto (Bld) Ordered By: Michael Cerda on 09-28-2022 Monocytes/100 WBC (Bld) 5.8 % . [facility] Natriuretic peptide B [Mass/ Vol]Ordered By: Michael Cerda on 09-28-2022 Natriuretic peptide B (Bld) [Mass/Vol] 27.0 pg/mL 5-100 [facility] Neutrophils Auto (Bld) [#/Vo l]Ordered By: Michael Cerda on 09-28-2022 Neutrophils (Bld) [#/Vol] 4.2 10*3/uL 1.8-7.7 [facility] Neutrophils/100 WBC Auto (Bl d)Ordered By: Michael Cerda on 09-28-2022 Neutrophils/100 WBC (Bld) 82.5 % . [facility] Nitrite Test strip Ql (U)Ord ered By: Michael Cerda on 09-28-2022 Nitrite Ql (U) Negative Negative [facility] No Panel InformationOrdered By: Michael Cerda on 09-28-2022 D-Dimer Quantitative (PE/DVT) 560 ng/mL 0-243 [facility] Comment on above: The reference range for [...] conditions. Estimated GFR (CKD-EPI) > 60.0 mL/Min [facility] Creatinine Clearance (Chem 119.50 [facility] Nucleated erythrocytes [Pres ence] in Blood by Automated countOrdered By: Michael Cerda on 09-28-2022 Nucleated RBC Auto Ql (Bld) 0.1 /100{WBC} 0-0.5 [facility] Platelet mean volume Auto (B ld) [Entitic vol]Ordered By: Michael Cerda on 09-28-2022 Platelet mean volume (Bld) [Entitic vol] 7.4 fL 6.3-10.7 [facility] Platelet poor plasma interna tional normalized ratio (INR) by coagulation assay (relatOrdered By: Michael Cerda on 09-28-2022 INR Coag (PPP) [Relative time] 1.0 {INR} [facility] Comment on above: INR Therapeutic Rang e [...] 09-28-2022 Platelets (Bld) [#/Vol] 197 10*3/uL 150-450 [facility] Potassium [Moles/volume] in Serum or PlasmaOrdered By: Michael Cerda on 09-28-2022 Potassium [Moles/Vol] 3.7 mmol/L 3.5-5.1 [facility] Protein Auto test strip (U) [Mass/Vol]Ordered By: Michael Cerda on 09-28-2022 Protein (U) [Mass/Vol] Negative Negative Fi [facility] RBC Auto (Bld) [#/Vol]Ordere d By: Michael Cerda on 09-28-2022 RBC (Bld) [#/Vol] 4.01 10*6/uL 3.60-5.[address] [facility] Serum or plasma anion gap de terminationOrdered By: Michael Cerda on 09-28-2022 Anion gap [Moles/Vol] 13.0 mmol/L 6.0-15.0 [facility] Sodium [Moles/volume] in Ser um or PlasmaOrdered By: Michael Cerda on 09-28-2022 Sodium [Moles/Vol] 138 mmol/L 136-145 [facility] Specific gravity Auto test s trip (U) [Rel density]Ordered By: Michael Cerda on 09-28-2022 Specific gravity (U) [Rel density] 1.015 1.001-1.030 [facility] Squamous epithelial cells de tection in urine sediment by light microscopyOrdered By: Michael Cerda on 09-28-2022 Epithelial cells.squamous LM Ql (Urine sed) 3-4 [HPF] 0-2 [facility] Troponin I.cardiac [Mass/vol ume] in Serum or Plasma by Detection limit <= 0.01 ng/Ordered By: Michael Cerda on 09-28-2022 Troponin I.cardiac DL <= 0.01 ng/mL [Mass/Vol] 5.1 pg/mL 0.0-15.0 [facility] Urea nitrogen [Mass/volume] in Serum or PlasmaOrdered By: Michael Cerda on 09-28-2022 Urea nitrogen [Mass/Vol] 11 mg/dL 7-25 [facility] Urine bacteria detection by automated methodOrdered By: Michael Cerda on 09-28-2022 Bacteria Auto Ql (U) None seen None Seen [facility] Urine clarity by refractomet ry automatedOrdered By: Michael Cerda on 09-28-2022 Clarity Refractometry automated (U) Clear Clear [facility] Urine culture routineOrdered By: Michael Cerda on 09-28-2022 Bacteria identified Cx Nom (U) 2 Days [facility] Urine glucose measurement by automated test strip (mass/volume)Ordered By: Michael Cerda on 09-28-2022 Glucose Auto test strip (U) [Mass/Vol] Normal mg/dL Normal [facility] Urine hemoglobin detection b y automated test stripOrdered By: Michael Cerda on 09-28-2022 Hemoglobin Auto test strip Ql (U) Negative Negative [facility] Urine leukocyte esterase det ection by automated test stripOrdered By: Michael Cerda on 09-28-2022 Leukocyte esterase Auto test strip Ql (U) 3+ Negative [facility] Urobilinogen Auto test strip (U) [Mass/Vol]Ordered By: Michael Cerda on 09-28-2022 Urobilinogen (U) [Mass/Vol] Normal mg/dL Normal [facility] WBC Auto (Bld) [#/Vol]Ordere d By: Michael Cerda on 09-28-2022 WBC (Bld) [#/Vol] 5.1 10*3/uL 3.8-11.6 [facility] pH Auto test strip (U)Ordere d By: Michael Cerda on 09-28-2022 pH (U) 6.5 [pH] 5.0-9.0 [facility] Cholesterol [Mass/volume] in Serum or PlasmaOrdered By: Nimesh Cerda on 09-04-2022 Cholesterol [Mass/Vol] 213 mg/dL 140-200 [facility] Comment on above: Chol less than 200 m g/dl low riskChol 201-239 mg/dl borderline riskChol 240 mg/dl and greater high risk Cholesterol in LDL Calc [Mas s/Vol]Ordered By: Nimesh Cerda on 09-04-2022 Cholesterol in LDL [Mass/Vol] 126 mg/dL 0-100 [facility] Comment on above: LDL ATP III CLASSIFI CATIONLDL less than 100 mg/dL OptimalLDL 100-129 mg/dL Near or above optimalLDL 130-159 mg/dL Borderline highLDL 160-189 mg/dL HighLDL greater than 189 mg/dL Very high Cholesterol in VLDL Calc [Ma ss/Vol]Ordered By: Nimesh Cerda on 09-04-2022 Cholesterol in VLDL [Mass/Vol] 19 mg/dL [facility] Serum or plasma high density lipoprotein (HDL) cholesterol measurementOrdered By: Nimesh Cerda on 09-04-2022 Cholesterol in HDL [Mass/Vol] 67 mg/dL 35-85 [facility] Comment on above: HDL CHOL ATP-III CLA SSIFICATION Cardiovascular RiskHDL > or equal to 60 mg/dL LOWHDL < 40 mg/dL HIGH Serum or plasma total choles terol/high density lipoprotein (HDL) cholesterol mass ratOrdered By: Nimesh Cerda on 09-04-2022 Cholesterol.total/Chol esterol in HDL [Mass ratio] 3.2 {ratio} <5.0 [facility] Thyrotropin [Units/volume] i n Serum or PlasmaOrdered By: Nimesh Cerda on 09-04-2022 TSH Qn 1.74 m[IU]/L 0.45-5.33 [facility] Triglyceride [Mass/volume] i n Serum or PlasmaOrdered By: Nimesh Cerda on 09-04-2022 Triglyceride [Mass/Vol] 98 mg/dL 0-149 [facility] Comment on above: TRIG ATP III CLASSIF ICATIONTRIG less than 150 mg/dL NormalTRIG 150-199 mg/dL Borderline highTRIG 200-500 mg/dL High TRIG greater than 500 mg/dL Very highStandard traceable to the Center for Disease Conrtrol and Prevention (CDC) test method. Vitamin D+Metabolites [Mass/ volume] in Serum or PlasmaOrdered By: Nimesh Cerda on 09-04-2022 Vitamin D+Metabolites [Mass/Vol] 31.0 ng/mL 30-100 [facility] Comment on above: VITAMIN D STATUS 25( [place])VITAMIN D RANGE (ng/mL) Deficient <20 Insufficient 20 to <30Sufficient 30 to 100Reference: Franklyn MF,Benjamin NC, Andreina MARQUEZ, et al. Evaluation,treatment, and prevention of vitamin D deficiency; an Endocrine Society clinical practice guideline. JCEM. 2010; 96(7):1911-30. Alanine aminotransferase [En zymatic activity/volume] in Serum or PlasmaOrdered By: Raffaele Ellsworth on 09-03-2022 ALT [Catalytic activity/Vol] 26 U/L 7-52 [facility] Albumin [Mass/volume] in Ser um or Plasma by Bromocresol green (BCG) dye binding methoOrdered By: Raffaele Ellsworth on 09-03-2022 Albumin BCG dye [Mass/Vol] 4.1 g/dL 3.5-5.7 [facility] Alkaline phosphatase [Enzyma tic activity/volume] in Serum or PlasmaOrdered By: Raffaele Ellsworth on 09-03-2022 ALP [Catalytic activity/Vol] 77 U/L 34-104 [facility] Amphetamine Screen Ql (U)Ord ered By: Raffaele Ellsworth on 09-03-2022 Amphetamines Ql (U) Negative Negative [facility] Aspartate aminotransferase [ Enzymatic activity/volume] in Serum or PlasmaOrdered By: Raffaele Ellsworth on 09-03-2022 AST [Catalytic activity/Vol] 29 U/L 13-39 [facility] Automated erythrocytes count in urine sediment (number/area)Ordered By: Raffaele Ellsworth on 09-03-2022 RBC Auto (Urine sed) [#/Area] 5-9 [HPF] 0-4 [facility] Automated leukocytes count i n urine sediment (number/area)Ordered By: Raffaele Ellsworth on 09-03-2022 WBC Auto (Urine sed) [#/Area] 10-19 [HPF] 0-4 [facility] Barbiturates [Presence] in U rine by Screen methodOrdered By: Raffaele Ellsworth on 09-03-2022 Barbiturates Screen Ql (U) Negative Negative [facility] Basophils Auto (Bld) [#/Vol] Ordered By: Raffaele Ellsworth on 09-03-2022 Basophils (Bld) [#/Vol] 0.0 10*3/uL 0.0-0.2 [facility] Basophils/100 WBC Auto (Bld) Ordered By: Raffaele Ellsworth on 09-03-2022 Basophils/100 WBC (Bld) 0.6 % . [facility] Benzodiazepines Screen Ql (U )Ordered By: Raffaele Ellsworth on 09-03-2022 Benzodiazepines Ql (U) Negative Negative [facility] Benzoylecgonine [Presence] i n Urine by Screen methodOrdered By: Raffaele Elslworth on 09-03-2022 Benzoylecgonine Screen Ql (U) Negative Negative [facility] Bilirubin Test strip Ql (U)O rdered By: Raffaele Ellsworth on 09-03-2022 Bilirubin Ql (U) Negative Negative [facility] Bilirubin.total [Mass/volume ] in Serum or PlasmaOrdered By: Raffaele Ellsworth on 09-03-2022 Bilirubin [Mass/Vol] 0.4 mg/dL 0.3-1.0 [facility] Calcium [Mass/volume] in Ser um or PlasmaOrdered By: Raffaele Ellsworth on 09-03-2022 Calcium [Mass/Vol] 9.6 mg/dL 8.6-10.3 [facility] Cannabinoids [Presence] in U rine by Screen methodOrdered By: Raffaele Ellsworth on 09-03-2022 Cannabinoids Screen Ql (U) Negative Negative [facility] Comment on above: These are unconfirme d results and should not be used for legal purposes. Drug Cut-Off Concentration: AMPH 1000 ng/mL BOO 200 ng/mL HELGA 200 ng/mL COCM 300 ng/mL OP 300 ng/mL PCP 25 ng/mL THC 20 ng/mL Carbon dioxide, total [Moles /volume] in Serum or PlasmaOrdered By: Raffaele Ellsworth on 09-03-2022 CO2 [Moles/Vol] 23.8 mmol/L 21.0-31.0 [facility] Chloride [Moles/volume] in S mac or PlasmaOrdered By: Raffaele Ellsworth on 09-03-2022 Chloride [Moles/Vol] 107 mmol/L 98-107 [facility] Color Auto (U)Ordered By: Kapil Ellsworth on 09-03-2022 Color (U) Yellow Yellow [facility] Creatinine [Mass/volume] in Serum or PlasmaOrdered By: Raffaele Ellsworth on 09-03-2022 Creatinine [Mass/Vol] 0.76 mg/dL 0.60-1.20 [facility] Eosinophils Auto (Bld) [#/Vo l]Ordered By: Raffaele Ellsworth on 09-03-2022 Eosinophils (Bld) [#/Vol] 0.1 10*3/uL 0.0-0.45 [facility] Eosinophils/100 WBC Auto (Bl d)Ordered By: Raffaele Ellsworth on 09-03-2022 Eosinophils/100 WBC (Bld) 2.0 % . [facility] Erythrocyte distribution wid th Auto (RBC) [Ratio]Ordered By: Raffaele Ellsworth on 09-03-2022 Erythrocyte distribution width (RBC) [Ratio] 14.8 % 11.9-15.3 [facility] Ethanol [Mass/volume] in Ser um or PlasmaOrdered By: Raffaele Ellsworth on 09-03-2022 Ethanol [Mass/Vol] mg/dL [facility] Ethanol [Mass/Vol] TNP [facility] Comment on above: Test not performed Globulin Calc (S) [Mass/Vol] Ordered By: Raffaele Ellsworth on 09-03-2022 Globulin (S) [Mass/Vol] 2.9 g/dL [facility] Glucose [Mass/volume] in Ser um or PlasmaOrdered By: Raffaele Ellsworth on 09-03-2022 Glucose [Mass/Vol] 79 mg/dL 74-109 [facility] Comment on above: ADA recommended refe rence rangeRandom Glucose Reference Range is dependent on time and content of last meal. Glucose of more than 200 mg/dL in a nonstressed, ambulatory subject supports the diagnosis of Diabetes Mellitus. Hematocrit Auto (Bld) [Volum e fraction]Ordered By: Raffaele Ellsworth on 09-03-2022 Hematocrit (Bld) [Volume fraction] 38.3 % 34.0-46.4 [facility] Hemoglobin [Mass/volume] in BloodOrdered By: Raffaele Ellsworth on 09-03-2022 Hemoglobin (Bld) [Mass/Vol] 12.8 g/dL 11.8-15.4 [facility] Ketones Auto test strip (U) [Mass/Vol]Ordered By: Raffaele Ellsworth on 09-03-2022 Ketones (U) [Mass/Vol] Trace Negative [facility] Laboratory - Chemistry and C hemistry - challengeOrdered By: Raffaele Ellsworth on 09-03-2022 GFR/1.73 sq M.predicted MDRD (S/P/Bld) [Vol rate/Area] mL/min/{1.73_m2} [facility] Laboratory - UrinalysisOrder ed By: Raffaele Ellsworth on 09-03-2022 Hyaline casts LM Ql (Urine sed) 0-8 [LPF] 0-8 [facility] Leukocytes [#/volume] correc nneka for nucleated erythrocytes in Blood by Automated counOrdered By: Raffaele Ellsworth on 09-03-2022 WBC corrected for nucl RBC Auto (Bld) [#/Vol] 6.5 10*3/uL 3.8-11.6 [facility] Lymphocytes Auto (Bld) [#/Vo l]Ordered By: Raffaele Ellsworth on 09-03-2022 Lymphocytes (Bld) [#/Vol] 1.8 10*3/uL 1.00-4.8 [facility] Lymphocytes/100 WBC Auto (Bl d)Ordered By: Raffaele Ellsworth on 09-03-2022 Lymphocytes/100 WBC (Bld) 28.2 % . [facility] MCH Auto (RBC) [Entitic mass ]Ordered By: Raffaele Ellsworth on 09-03-2022 MCH (RBC) [Entitic mass] 32.7 pg 24.7-34.3 [facility] MCHC Auto (RBC) [Mass/Vol]Or dered By: Raffaele Ellsworth on 09-03-2022 MCHC (RBC) [Mass/Vol] 33.4 g/dL 32.0-35.0 [facility] MCV Auto (RBC) [Entitic vol] Ordered By: Raffaele Ellsworth on 09-03-2022 MCV (RBC) [Entitic vol] 97.9 fL 80-100 [facility] Monocyte distribution width [Entitic volume] in Blood by AutomatedOrdered By: Raffaele Ellsworth on 09-03-2022 Monocyte distribution width Auto (Bld) [Entitic vol] 18.00 % 0.00-20.00 [facility] Monocytes Auto (Bld) [#/Vol] Ordered By: Raffaele Ellsworth on 09-03-2022 Monocytes (Bld) [#/Vol] 0.5 10*3/uL 0.0-0.8 [facility] Monocytes/100 WBC Auto (Bld) Ordered By: Raffaele Ellsworth on 09-03-2022 Monocytes/100 WBC (Bld) 7.1 % . [facility] Neutrophils Auto (Bld) [#/Vo l]Ordered By: aRffaele Ellsworth on 09-03-2022 Neutrophils (Bld) [#/Vol] 4.0 10*3/uL 1.8-7.7 [facility] Neutrophils/100 WBC Auto (Bl d)Ordered By: Raffaele Ellsworth on 09-03-2022 Neutrophils/100 WBC (Bld) 62.1 % . [facility] Nitrite Test strip Ql (U)Ord ered By: Raffaele Ellsworth on 09-03-2022 Nitrite Ql (U) Negative Negative [facility] No Panel InformationOrdered By: Raffaele Ellsworth on 09-03-2022 Pharmacy Creatinine Clearance (Chem 126.74 [facility] Nucleated erythrocytes [Pres ence] in Blood by Automated countOrdered By: Raffaele Ellsworth on 09-03-2022 Nucleated RBC Auto Ql (Bld) 0.0 /100{WBC} 0-0.5 [facility] Opiates [Presence] in Urine by Screen methodOrdered By: Raffaele Ellsworth on 09-03-2022 Opiates Screen Ql (U) Negative Negative [facility] Phencyclidine Screen Ql (U)O rdered By: Raffaele Ellsworth on 09-03-2022 Phencyclidine Ql (U) Negative Negative [facility] Platelet mean volume Auto (B ld) [Entitic vol]Ordered By: Raffaele Ellsworth on 09-03-2022 Platelet mean volume (Bld) [Entitic vol] 7.2 fL 6.3-10.7 [facility] Platelets Auto (Bld) [#/Vol] Ordered By: Raffaele Ellsworth on 09-03-2022 Platelets (Bld) [#/Vol] 241 10*3/uL 150-450 [facility] Potassium [Moles/volume] in Serum or PlasmaOrdered By: Raffaele Ellsworth on 09-03-2022 Potassium [Moles/Vol] 4.0 mmol/L 3.5-5.1 [facility] Protein Auto test strip (U) [Mass/Vol]Ordered By: Raffaele Ellsworth on 09-03-2022 Protein (U) [Mass/Vol] Negative Negative [facility] Protein [Mass/volume] in Ser um or PlasmaOrdered By: Raffaele Ellsworth on 09-03-2022 Protein [Mass/Vol] 7.0 g/dL 6.4-8.9 [facility] RBC Auto (Bld) [#/Vol]Ordere d By: Raffaele Ellsworth on 09-03-2022 RBC (Bld) [#/Vol] 3.91 10*6/uL 3.60-5.[address] [facility] Serum or plasma albumin/glob ulin mass ratioOrdered By: Raffaele Ellsworth on 09-03-2022 Albumin/Globulin [Mass ratio] 1.4 {ratio} [facility] Serum or plasma anion gap de terminationOrdered By: Raffaele Ellsworth on 09-03-2022 Anion gap [Moles/Vol] 12.2 mmol/L 6.0-15.0 [facility] Sodium [Moles/volume] in Ser um or PlasmaOrdered By: Raffaele Ellsworth on 09-03-2022 Sodium [Moles/Vol] 139 mmol/L 136-145 [facility] Specific gravity Auto test s trip (U) [Rel density]Ordered By: Raffaele Ellsworth on 09-03-2022 Specific gravity (U) [Rel density] 1.020 1.001-1.030 [facility] Squamous epithelial cells de tection in urine sediment by light microscopyOrdered By: Raffaele Ellsworth on 09-03-2022 Epithelial cells.squamous LM Ql (Urine sed) 5-9 [HPF] 0-2 [facility] Urea nitrogen [Mass/volume] in Serum or PlasmaOrdered By: Raffaele Ellsworth on 09-03-2022 Urea nitrogen [Mass/Vol] 9 mg/dL 7-25 [facility] Urine bacteria detection by automated methodOrdered By: Raffaele Ellsworth on 09-03-2022 Bacteria Auto Ql (U) None seen None Seen [facility] Urine clarity by refractomet ry automatedOrdered By: Raffaele Ellsworth on 09-03-2022 Clarity Refractometry automated (U) Clear Clear [facility] Urine culture routineOrdered By: Raffaele Ellsworth on 09-03-2022 Bacteria identified Cx Nom (U) 2 Days [facility] Urine glucose measurement by automated test strip (mass/volume)Ordered By: Raffaele Ellsworth on 09-03-2022 Glucose Auto test strip (U) [Mass/Vol] Normal mg/dL Normal [facility] Urine hemoglobin detection b y automated test stripOrdered By: Raffaele Ellsworth on 09-03-2022 Hemoglobin Auto test strip Ql (U) Trace Negative [facility] Urine leukocyte esterase det ection by automated test stripOrdered By: Raffaele Ellsworth on 09-03-2022 Leukocyte esterase Auto test strip Ql (U) 2+ Negative [facility] Urobilinogen Auto test strip (U) [Mass/Vol]Ordered By: Raffaele Ellsworth on 09-03-2022 Urobilinogen (U) [Mass/Vol] Normal mg/dL Normal [facility] WBC Auto (Bld) [#/Vol]Ordere d By: Raffaele Ellsworth on 09-03-2022 WBC (Bld) [#/Vol] 6.5 10*3/uL 3.8-11.6 [facility] pH Auto test strip (U)Ordere d By: Raffaele Ellsworth on 09-03-2022 pH (U) 5.0 [pH] 5.0-9.0 [facility] Basophils Auto (Bld) [#/Vol] Ordered By: Urbano Palma on 08-13-2022 Basophils (Bld) [#/Vol] 0.0 10*3/uL 0.0-0.2 [facility] Basophils/100 WBC Auto (Bld) Ordered By: Urbano Palma on 08-13-2022 Basophils/100 WBC (Bld) 0.3 % . [facility] Eosinophils Auto (Bld) [#/Vo l]Ordered By: Urbano Palma on 08-13-2022 Eosinophils (Bld) [#/Vol] 0.0 10*3/uL 0.0-0.45 [facility] Eosinophils/100 WBC Auto (Bl d)Ordered By: Urbano Palma on 08-13-2022 Eosinophils/100 WBC (Bld) 0.4 % . [facility] Erythrocyte distribution wid th Auto (RBC) [Ratio]Ordered By: Urbano Palma on 08-13-2022 Erythrocyte distribution width (RBC) [Ratio] 17.2 % 11.9-15.3 [facility] Hematocrit Auto (Bld) [Volum e fraction]Ordered By: Urbano Palma on 08-13-2022 Hematocrit (Bld) [Volume fraction] 30.3 % 34.0-46.4 [facility] Hemoglobin [Mass/volume] in BloodOrdered By: Urbano Palma on 08-13-2022 Hemoglobin (Bld) [Mass/Vol] 10.2 g/dL 11.8-15.4 [facility] Leukocytes [#/volume] correc nneka for nucleated erythrocytes in Blood by Automated counOrdered By: Urbano Palma on 08-13-2022 WBC corrected for nucl RBC Auto (Bld) [#/Vol] 10.0 10*3/uL 3.8-11.6 [facility] Lymphocytes Auto (Bld) [#/Vo l]Ordered By: Urbano Palma on 08-13-2022 Lymphocytes (Bld) [#/Vol] 1.7 10*3/uL 1.00-4.8 [facility] Lymphocytes/100 WBC Auto (Bl d)Ordered By: Urbano Palma on 08-13-2022 Lymphocytes/100 WBC (Bld) 16.5 % . [facility] MCH Auto (RBC) [Entitic mass ]Ordered By: Urbano Palma on 08-13-2022 MCH (RBC) [Entitic mass] 32.9 pg 24.7-34.3 [facility] MCHC Auto (RBC) [Mass/Vol]Or dered By: Urbano Palma on 08-13-2022 MCHC (RBC) [Mass/Vol] 33.6 g/dL 32.0-35.0 [facility] MCV Auto (RBC) [Entitic vol] Ordered By: Urbano Palma on 08-13-2022 MCV (RBC) [Entitic vol] 97.8 fL 80-100 [facility] Monocytes Auto (Bld) [#/Vol] Ordered By: Urbano Palma on 08-13-2022 Monocytes (Bld) [#/Vol] 0.5 10*3/uL 0.0-0.8 [facility] Monocytes/100 WBC Auto (Bld) Ordered By: Urbano Palma on 08-13-2022 Monocytes/100 WBC (Bld) 5.4 % . [facility] Neutrophils Auto (Bld) [#/Vo l]Ordered By: Urbano Palma on 08-13-2022 Neutrophils (Bld) [#/Vol] 7.7 10*3/uL 1.8-7.7 [facility] Neutrophils/100 WBC Auto (Bl d)Ordered By: Urbano Palma on 08-13-2022 Neutrophils/100 WBC (Bld) 77.4 % . [facility] Nucleated erythrocytes [Pres ence] in Blood by Automated countOrdered By: Urbano Palma on 08-13-2022 Nucleated RBC Auto Ql (Bld) 0.0 /100{WBC} 0-0.5 [facility] Platelet mean volume Auto (B ld) [Entitic vol]Ordered By: Urbano Palma on 08-13-2022 Platelet mean volume (Bld) [Entitic vol] 8.2 fL 6.3-10.7 [facility] Platelets Auto (Bld) [#/Vol] Ordered By: Urbano Palma on 08-13-2022 Platelets (Bld) [#/Vol] 125 10*3/uL 150-450 [facility] RBC Auto (Bld) [#/Vol]Ordere d By: Urbano Palma on 08-13-2022 RBC (Bld) [#/Vol] 3.10 10*6/uL 3.60-5.[address] [facility] WBC Auto (Bld) [#/Vol]Ordere d By: Urbano Palma on 08-13-2022 WBC (Bld) [#/Vol] 10.0 10*3/uL 3.8-11.[address] [facility] Glucose Glucometer (BldC) [M ass/Vol]Ordered By: Urbano Palma on 08-12-2022 Glucose [Mass/Vol] 82 mg/dL [facility] Comment on above: Random Glucose Refer ence Range is dependent on time and content of last meal. Glucose of more than 200 mg/dL in a nonstressed, ambulatory subject supports the diagnosis of Diabetes Mellitus. No Panel InformationOrdered By: Urbano Palma on 08-12-2022 Bedside Glucose Comment Glu2: cleaned meter [facility] Amphetamine Screen Ql (U)Ord ered By: Urbano Palma on 08-11-2022 Amphetamines Ql (U) Negative Negative [facility] Automated erythrocytes count in urine sediment (number/area)Ordered By: Urbano Palma on 08-11-2022 RBC Auto (Urine sed) [#/Area] 0-1 [HPF] 0-4 [facility] Automated leukocytes count i n urine sediment (number/area)Ordered By: Urbano Palma on 08-11-2022 WBC Auto (Urine sed) [#/Area] 50-100 [HPF] 0-4 [facility] Automated urine hyaline cast s count (number/volume)Ordered By: Urbano Palma on 08-11-2022 Hyaline casts Auto (U) [#/Vol] None seen [LPF] 0-1 [facility] Barbiturates [Presence] in U rineOrdered By: Urbano Palma on 08-11-2022 Barbiturates Ql (U) Negative Negative [facility] Benzodiazepines [Presence] i n UrineOrdered By: Urbano Palma on 08-11-2022 Benzodiazepines Ql (U) Negative Negative [facility] Bilirubin Test strip Ql (U)O rdered By: Urbano Palam on 08-11-2022 Bilirubin Ql (U) Negative Negative [facility] Casts typing in urine sedime nt by light microscopyOrdered By: Urbano Palma on 08-11-2022 Casts LM Nom (Urine sed) None seen [LPF] None Seen [facility] Color Auto (U)Ordered By: Mago Palma on 08-11-2022 Color (U) Yellow Yellow [facility] Glucose [Mass/volume] in Ser um or PlasmaOrdered By: Urbano Palma on 08-11-2022 Glucose [Mass/Vol] 69 mg/dL 70-100 [facility] Comment on above: ADA recommended refe rence rangeRandom Glucose Reference Range is dependent on time and content of last meal. Glucose of more than 200 mg/dL in a nonstressed, ambulatory subject supports the diagnosis of Diabetes Mellitus. Ketones Auto test strip (U) [Mass/Vol]Ordered By: Urbano Palma on 08-11-2022 Ketones (U) [Mass/Vol] Trace Negative [facility] - Drug toxicology Ordered By: Urbano Palma on 08-11-2022 Opiates Ql (U) Negative Negative [facility] Nitrite Test strip Ql (U)Ord ered By: Urbano Palma on 08-11-2022 Nitrite Ql (U) Negative Negative [facility] Phencyclidine Screen Ql (U)O rdered By: Urbano Palma on 08-11-2022 Phencyclidine Ql (U) Negative Negative [facility] Comment on above: These are unconfirme d results and should not be used for legal purposes. Drug Cut-Off Concentration: AMPH 1000 ng/mL BOO 200 ng/mL HELGA 200 ng/mL COCM 300 ng/mL OP 300 ng/mL PCP 25 ng/mL Protein Auto test strip (U) [Mass/Vol]Ordered By: Urbano Palma on 08-11-2022 Protein (U) [Mass/Vol] 30 mg/dL [facility] Reagin Ab [Presence] in Seru m by RPROrdered By: Urbano Palma on 08-11-2022 Reagin Ab RPR Ql (S) Non-Reactive Non Reactive [facility] Comment on above: Performed at: [place] [id number] Director: Prabhakar Warren PhD, Phone: [phone] Specific gravity Auto test s trip (U) [Rel density]Ordered By: Urbano Palma on 08-11-2022 Specific gravity (U) [Rel density] 1.021 1.001-1.030 [facility] Squamous epithelial cells de tection in urine sediment by light microscopyOrdered By: Urbano Palma on 08-11-2022 Epithelial cells.squamous LM Ql (Urine sed) 5-9 [HPF] 0-2 [facility] Urine bacteria detection by automated methodOrdered By: Urbano Palma on 08-11-2022 Bacteria Auto Ql (U) 1+ None Seen [facility] Urine clarity by refractomet ry automatedOrdered By: Urbano Palma on 08-11-2022 Clarity Refractometry automated (U) Cloudy Clear [facility] Urine cocaine detectionOrder ed By: Urbano Palma on 08-11-2022 Cocaine Ql (U) Negative Negative [facility] Urine culture routineOrdered By: Urbano Palma on 08-11-2022 Bacteria identified Cx Nom (U) Cinthya albicans [facility] Urine glucose measurement by automated test strip (mass/volume)Ordered By: Urbano Palma on 08-11-2022 Glucose Auto test strip (U) [Mass/Vol] Normal mg/dL Normal [facility] Urine hemoglobin detection b y automated test stripOrdered By: Urbano Palma on 02-20-2023 Hemoglobin Auto test strip Ql (U) Negative Negative [facility] Urine leukocyte esterase det ection by automated test stripOrdered By: Urbano Palma on 08-11-2022 Leukocyte esterase Auto test strip Ql (U) 3+ Negative [facility] Urobilinogen Auto test strip (U) [Mass/Vol]Ordered By: Urbano Palma on 08-11-2022 Urobilinogen (U) [Mass/Vol] Normal mg/dL Normal [facility] pH Auto test strip (U)Ordere d By: Urbano Palma on 08-11-2022 pH (U) 5.5 [pH] 5.0-9.0 [facility] Albumin [Mass/volume] in Ser um or PlasmaOrdered By: CANDICE Cody on 08-02-2022 Albumin [Mass/Vol] 2.7 g/dL 3.2-5.5 [facility] Basophils Auto (Bld) [#/Vol] Ordered By: CANDICE Cody on 08-02-2022 Basophils (Bld) [#/Vol] 0.0 10*3/uL 0.0-0.2 [facility] Basophils/100 WBC Auto (Bld) Ordered By: CANDICE Cody on 08-02-2022 Basophils/100 WBC (Bld) 0.3 % . [facility] Creatinine and Glomerular fi ltration rate.predicted panel (S/P/Bld)Ordered By: CANDICE Cody on 08-02-2022 Creatinine [Mass/Vol] 0.64 mg/dL 0.44-1.03 [facility] Eosinophils Auto (Bld) [#/Vo l]Ordered By: CANDICE Cody on 08-02-2022 Eosinophils (Bld) [#/Vol] 0.1 10*3/uL 0.0-0.45 [facility] Eosinophils/100 WBC Auto (Bl d)Ordered By: CANDICE Cody on 08-02-2022 Eosinophils/100 WBC (Bld) 0.8 % . [facility] Erythrocyte distribution wid th Auto (RBC) [Ratio]Ordered By: CANDICE Cody on 08-02-2022 Erythrocyte distribution width (RBC) [Ratio] 17.8 % 11.9-15.3 [facility] Estimated glomerular filtrat ion rate (GFR) non- AmericanOrdered By: JASON Cody on 08-02-2022 GFR/1.73 sq M.predicted among non-blacks MDRD (S/P/Bld) [Vol rate/Area] > 60 mL/Min [facility] Globulin Calc (S) [Mass/Vol] Ordered By: CANDICE Cody on 08-02-2022 Globulin (S) [Mass/Vol] 3.1 g/dL [facility] Hematocrit Auto (Bld) [Volum e fraction]Ordered By: CANDICE Cody on 08-02-2022 Hematocrit (Bld) [Volume fraction] 34.8 % 34.0-46.4 [facility] Hemoglobin [Mass/volume] in BloodOrdered By: CANDICE Cody on 08-02-2022 Hemoglobin (Bld) [Mass/Vol] 11.5 g/dL 11.8-15.4 [facility] Leukocytes [#/volume] correc nneka for nucleated erythrocytes in Blood by Automated counOrdered By: CANDICE Cody on 08-02-2022 WBC corrected for nucl RBC Auto (Bld) [#/Vol] 9.1 10*3/uL 3.8-11.6 [facility] Lymphocytes Auto (Bld) [#/Vo l]Ordered By: CANDICE Cody on 08-02-2022 Lymphocytes (Bld) [#/Vol] 1.6 10*3/uL 1.00-4.8 [facility] Lymphocytes/100 WBC Auto (Bl d)Ordered By: CANDICE Cody on 08-02-2022 Lymphocytes/100 WBC (Bld) 17.0 % . [facility] MCH Auto (RBC) [Entitic mass ]Ordered By: CANDICE Cody on 08-02-2022 MCH (RBC) [Entitic mass] 32.3 pg 24.7-34.3 [facility] MCHC Auto (RBC) [Mass/Vol]Or dered By: CANDICE Cody on 08-02-2022 MCHC (RBC) [Mass/Vol] 33.2 g/dL 32.0-35.0 [facility] MCV Auto (RBC) [Entitic vol] Ordered By: CANDICE Cody on 08-02-2022 MCV (RBC) [Entitic vol] 97.4 fL 80-100 [facility] Monocytes Auto (Bld) [#/Vol] Ordered By: CANDICE Cody on 08-02-2022 Monocytes (Bld) [#/Vol] 0.6 10*3/uL 0.0-0.8 [facility] Monocytes/100 WBC Auto (Bld) Ordered By: CANDICE Cody on 08-02-2022 Monocytes/100 WBC (Bld) 6.8 % . [facility] Neutrophils Auto (Bld) [#/Vo l]Ordered By: CANDICE Cody on 08-02-2022 Neutrophils (Bld) [#/Vol] 6.9 10*3/uL 1.8-7.7 [facility] Neutrophils/100 WBC Auto (Bl d)Ordered By: CANDICE Cody on 08-02-2022 Neutrophils/100 WBC (Bld) 75.1 % . [facility] No Panel InformationOrdered By: CADNICE Cody on 08-02-2022 Estimated GFR () > 60 mL/Min [facility] Comment on above: GFR estimated refere nce range: According to KDOQI guidelines, <60 ml/min/1.73m2 is sufficient to diagnose a patient with chronic kidney disease. Pharmacy Creatinine Clearance (Chem 152.15 [facility] Nucleated erythrocytes [Pres ence] in Blood by Automated countOrdered By: CANDICE Cody on 08-02-2022 Nucleated RBC Auto Ql (Bld) 0.0 /100{WBC} 0-0.5 [facility] Platelet mean volume Auto (B ld) [Entitic vol]Ordered By: CANDICE Cody on 08-02-2022 Platelet mean volume (Bld) [Entitic vol] 8.2 fL 6.3-10.7 [facility] Platelets Auto (Bld) [#/Vol] Ordered By: CANDICE Cody on 08-02-2022 Platelets (Bld) [#/Vol] 130 10*3/uL 150-450 [facility] Protein [Mass/volume] in Ser um or PlasmaOrdered By: CANDICE Cody on 08-02-2022 Protein [Mass/Vol] 5.8 g/dL 6.1-7.9 [facility] RBC Auto (Bld) [#/Vol]Ordere d By: CANDICE Cody on 08-02-2022 RBC (Bld) [#/Vol] 3.57 10*6/uL 3.60-5.[address] [facility] Reagin Ab [Presence] in Seru m by RPROrdered By: CANDICE Cody on 08-02-2022 Reagin Ab RPR Ql (S) Non-Reactive Non Reactive [facility] Comment on above: Performed at: [facility] [address] [place] [id number] Director: Prabhakar Warren PhD, Phone: [phone] Serum or plasma alanine cox otransferase measurement without P-5'-P (enzymatic activiOrdered By: CANDICE Cody on 08-02-2022 ALT No additional P-5'-P [Catalytic activity/Vol] 12 U/L 10-60 [facility] Serum or plasma albumin/glob ulin mass ratioOrdered By: CANDICE Cody on 08-02-2022 Albumin/Globulin [Mass ratio] 0.9 {ratio} [facility] Serum or plasma alkaline sma sphatase measurement (enzymatic activity/volume)Ordered By: CANDICE Cody on 08-02-2022 ALP [Catalytic activity/Vol] 97 U/L 32-92 [facility] Serum or plasma anion gap de terminationOrdered By: CANDICE Cody on 08-02-2022 Anion gap [Moles/Vol] 11.3 mmol/L 6.0-15.0 [facility] Serum or plasma aspartate am inotransferase measurement (enzymatic activity/volume)Ordered By: CANDICE Cody on 02-11-2023 AST [Catalytic activity/Vol] 19 U/L 10-42 [facility] Serum or plasma calcium katie urement (mass/volume)Ordered By: CANDICE Cody on 08-02-2022 Calcium [Mass/Vol] 9.6 mg/dL 8.2-10.2 [facility] Serum or plasma chloride victorino surement (moles/volume)Ordered By: CANDICE Cody on 08-02-2022 Chloride [Moles/Vol] 107 mmol/L 95-114 [facility] Serum or plasma glucose katie urement (mass/volume)Ordered By: CANDICE Cody on 08-02-2022 Glucose [Mass/Vol] 84 mg/dL 70-100 [facility] Comment on above: ADA recommended refe rence rangeRandom Glucose Reference Range is dependent on time and content of last meal. Glucose of more than 200 mg/dL in a nonstressed, ambulatory subject supports the diagnosis of Diabetes Mellitus. Serum or plasma potassium me asurement (moles/volume)Ordered By: CANDICE Cody on 08-02-2022 Potassium [Moles/Vol] 3.8 mmol/L 3.5-5.1 [facility] Serum or plasma sodium measu rement (moles/volume)Ordered By: CANDICE Cody on 08-02-2022 Sodium [Moles/Vol] 135 mmol/L 136-146 [facility] Serum or plasma total biliru bin measurement (mass/volume)Ordered By: CANDICE Cody on 08-02-2022 Bilirubin [Mass/Vol] 0.6 mg/dL 0.3-1.2 [facility] Serum or plasma total carbon dioxide measurement (moles/volume)Ordered By: JASON Cody on 08-02-2022 CO2 [Moles/Vol] 20.5 mmol/L 22.0-30.0 [facility] Serum or plasma urea nitroge n measurement (mass/volume)Ordered By: CANDICE Cody on 08-02-2022 Urea nitrogen [Mass/Vol] 6 mg/dL 9-23 [facility] Serum or plasma uric acid me asurement (mass/volume)Ordered By: CANDICE Cody on 08-02-2022 Urate [Mass/Vol] 4.5 mg/dL 2.6-7.2 [facility] WBC Auto (Bld) [#/Vol]Ordere d By: CANDICE Cody on 08-02-2022 WBC (Bld) [#/Vol] 9.1 10*3/uL 3.8-11.6 [facility] Amphetamine Screen Ql (U)Ord ered By: CANDICE Cody on 08-01-2022 Amphetamines Ql (U) Negative Negative [facility] Automated erythrocytes count in urine sediment (number/area)Ordered By: CANDICE Cody on 08-01-2022 RBC Auto (Urine sed) [#/Area] 3-4 [HPF] 0-4 [facility] Automated leukocytes count i n urine sediment (number/area)Ordered By: CANDICE Cody on 08-01-2022 WBC Auto (Urine sed) [#/Area] 50-100 [HPF] 0-4 [facility] Barbiturates [Presence] in U rineOrdered By: CANDICE Cody on 08-01-2022 Barbiturates Ql (U) Negative Negative [facility] Benzodiazepines [Presence] i n UrineOrdered By: CANDICE Cody on 08-01-2022 Benzodiazepines Ql (U) Negative Negative [facility] Bilirubin Test strip Ql (U)O rdered By: CANDICE Cody on 08-01-2022 Bilirubin Ql (U) Negative Negative [facility] Color Auto (U)Ordered By: MD CAMILLE Cody on 08-01-2022 Color (U) Yellow Yellow [facility] Ketones Auto test strip (U) [Mass/Vol]Ordered By: CANDICE Cody on 08-01-2022 Ketones (U) [Mass/Vol] Negative Negative [facility] Laboratory - Drug toxicology Ordered By: CANDICE Cody on 08-01-2022 Opiates Ql (U) Negative Negative [facility] Laboratory - UrinalysisOrder ed By: CANDICE Cody on 08-01-2022 Hyaline casts LM Ql (Urine sed) 0-8 [LPF] 0-8 [facility] Nitrite Test strip Ql (U)Ord ered By: CANDICE Cody on 08-01-2022 Nitrite Ql (U) Negative Negative [facility] Phencyclidine Screen Ql (U)O rdered By: CANDICE Cody on 08-01-2022 Phencyclidine Ql (U) Negative Negative [facility] Comment on above: These are unconfirme d results and should not be used for legal purposes. Drug Cut-Off Concentration: AMPH 1000 ng/mL BOO 200 ng/mL HELGA 200 ng/mL COCM 300 ng/mL OP 300 ng/mL PCP 25 ng/mL Protein Auto test strip (U) [Mass/Vol]Ordered By: CANDICE Cody on 08-01-2022 Protein (U) [Mass/Vol] Negative [facility] Specific gravity Auto test s trip (U) [Rel density]Ordered By: CANDICE Cody on 08-01-2022 Specific gravity (U) [Rel density] 1.014 1.001-1.030 [facility] Squamous epithelial cells de tection in urine sediment by light microscopyOrdered By: CANDICE Cody on 08-01-2022 Epithelial cells.squamous LM Ql (Urine sed) 5-9 [HPF] 0-2 [facility] Urine bacteria detection by automated methodOrdered By: CANDICE Cody on 08-01-2022 Bacteria Auto Ql (U) None seen None Seen [facility] Urine clarity by refractomet ry automatedOrdered By: CANDICE Cody on 08-01-2022 Clarity Refractometry automated (U) Cloudy Clear [facility] Urine cocaine detectionOrder ed By: CANDICE Cody on 08-01-2022 Cocaine Ql (U) Negative Negative [facility] Urine culture routineOrdered By: CANDICE Cody on 08-01-2022 Bacteria identified Cx Nom (U) 2 Days [facility] Bacteria identified Cx Nom (U) 2 Days [facility] Urine glucose measurement by automated test strip (mass/volume)Ordered By: JASON Cody on 08-01-2022 Glucose Auto test strip (U) [Mass/Vol] Normal mg/dL Normal [facility] Urine hemoglobin detection b y automated test stripOrdered By: CANDICE Cody on 08-01-2022 Hemoglobin Auto test strip Ql (U) Negative Negative [facility] Urine leukocyte esterase det ection by automated test stripOrdered By: CANDICE Cody on 08-01-2022 Leukocyte esterase Auto test strip Ql (U) 4+ Negative [facility] Urobilinogen Auto test strip (U) [Mass/Vol]Ordered By: CANDICE Cody on 08-01-2022 Urobilinogen (U) [Mass/Vol] Normal mg/dL Normal [facility] pH Auto test strip (U)Ordere d By: CANDICE Cody on 08-01-2022 pH (U) 5.5 [pH] 5.0-9.0 [facility] S. agalactiae Org specific c x Ql (Unsp spec)Ordered By: Urbano Palma on 07-25-2022 Group B Streptococcus Culture Strep. agalactiae Grp B [facility] Group B Streptococcus Culture Strep. agalactiae Grp B [facility] Office Visit (Cardiology)on 07-22-2022 Follow-up visit Diagnoses/Problems [...] of, Dr. Rita Olivia MD, FACC, FACP, FHRS. Chief Complaint Patient here for 6 month follow-up with [facility]. 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 Personal review of ECG and cardiac data reviewed . Outside records: OV with me December 2021 Device check December 2021 ECG [...] Overweight AHA (more content not included)... Normal [facility] [employer] Tobacco Screening.on 023 Fall risk assessment a) No falls within the last year [facility] [employer] [address] DO Work Phone: Tobacco use status [facility] b) No [facility] [employer] [address] DO Work Phone: Tobacco Screening. Yes [facility] [place] [address] DO Work Phone: Amphetamine Screen Ql (U)Ord ered By: Michael Cerda on 07-15-2022 Amphetamines Ql (U) Negative Negative [facility] Automated erythrocytes count in urine sediment (number/area)Ordered By: Michael Cerda on 07-15-2022 RBC Auto (Urine sed) [#/Area] 0-1 [HPF] 0-4 [facility] Automated leukocytes count i n urine sediment (number/area)Ordered By: Michael Cerda on 07-15-2022 WBC Auto (Urine sed) [#/Area] 50-100 [HPF] 0-4 [facility] Barbiturates [Presence] in U rineOrdered By: Michael Cerda on 07-15-2022 Barbiturates Ql (U) Negative Negative [facility] Basophils Auto (Bld) [#/Vol] Ordered By: Michael Cerda on 07-15-2022 Basophils (Bld) [#/Vol] 0.0 10*3/uL 0.0-0.2 [facility] Basophils/100 WBC Auto (Bld) Ordered By: Michael Cerda on 07-15-2022 Basophils/100 WBC (Bld) 0.4 % . [facility] Benzodiazepines [Presence] i n UrineOrdered By: Michael Cerda on 07-15-2022 Benzodiazepines Ql (U) Negative Negative [facility] Bilirubin Test strip Ql (U)O rdered By: Michael Cerda on 07-15-2022 Bilirubin Ql (U) Negative Negative [facility] Body fluid albumin measureme nt (mass/volume)Ordered By: Michael Cerda on 07-15-2022 Albumin (Body fld) [Mass/Vol] 2.9 g/dL 3.2-5.5 [facility] Cannabinoids [Presence] in U rine by Screen methodOrdered By: Michael Cerda on 07-15-2022 Cannabinoids Screen Ql (U) Negative Negative [facility] Comment on above: These are unconfirme d results and should not be used for legal purposes. Drug Cut-Off Concentration: AMPH 1000 ng/mL BOO 200 ng/mL HELGA 200 ng/mL COCM 300 ng/mL OP 300 ng/mL PCP 25 ng/mL THC 20 ng/mL Cholesterol [Mass/volume] in Serum or PlasmaOrdered By: Eduardo Swain on 07-15-2022 Cholesterol [Mass/Vol] 250 mg/dL 140-200 [facility] Comment on above: Chol less than 200 m g/dl low riskChol 201-239 mg/dl borderline riskChol 240 mg/dl and greater high risk Cholesterol in LDL Calc [Mas s/Vol]Ordered By: Eduardo Swain on 07-15-2022 Cholesterol in LDL [Mass/Vol] 138 mg/dL 0-100 [facility] Comment on above: LDL ATP III CLASSIFI CATIONLDL less than 100 mg/dL OptimalLDL 100-129 mg/dL Near or above optimalLDL 130-159 mg/dL Borderline highLDL 160-189 mg/dL HighLDL greater than 189 mg/dL Very high Cholesterol in VLDL Calc [Ma ss/Vol]Ordered By: Eduardo Swain on 07-15-2022 Cholesterol in VLDL [Mass/Vol] 40 mg/dL [facility] Color Auto (U)Ordered By: Lorene Cerda on 07-15-2022 Color (U) Yellow Yellow [facility] Creatinine and Glomerular fi ltration rate.predicted panel (S/P/Bld)Ordered By: Michael Cerda on 07-15-2022 Creatinine [Mass/Vol] 0.66 mg/dL 0.44-1.03 [facility] Eosinophils Auto (Bld) [#/Vo l]Ordered By: Michael Cerda on 07-15-2022 Eosinophils (Bld) [#/Vol] 0.0 10*3/uL 0.0-0.45 [facility] Eosinophils/100 WBC Auto (Bl d)Ordered By: Michael Cerda on 07-15-2022 Eosinophils/100 WBC (Bld) 0.4 % . [facility] Erythrocyte distribution wid th Auto (RBC) [Ratio]Ordered By: Michael Cerda on 07-15-2022 Erythrocyte distribution width (RBC) [Ratio] 18.8 % 11.9-15.3 [facility] Estimated glomerular filtrat ion rate (GFR) non- AmericanOrdered By: Michael Cerda on 07-15-2022 GFR/1.73 sq M.predicted among non-blacks MDRD (S/P/Bld) [Vol rate/Area] > 60 mL/Min [facility] Globulin Calc (S) [Mass/Vol] Ordered By: Michael Cerda on 07-15-2022 Globulin (S) [Mass/Vol] 3.2 g/dL [facility] Hematocrit Auto (Bld) [Volum e fraction]Ordered By: Michael Cerda on 07-15-2022 Hematocrit (Bld) [Volume fraction] 34.4 % 34.0-46.4 [facility] Hemoglobin [Mass/volume] in BloodOrdered By: Michael Cerda on 07-15-2022 Hemoglobin (Bld) [Mass/Vol] 11.3 g/dL 11.8-15.4 [facility] Ketones Auto test strip (U) [Mass/Vol]Ordered By: Michael Cerda on 07-15-2022 Ketones (U) [Mass/Vol] 2+ [facility] - [facility] toxic[facility] Ordered By: Michael Cerda on 07-15-2022 Opiates Ql (U) Negative Negative [facility] Laboratory - UrinalysisOrder ed By: Michael Cerda on 07-15-2022 Hyaline casts LM Ql (Urine sed) 0-8 [LPF] 0-8 [facility] Leukocytes [#/volume] correc nneka for nucleated erythrocytes in Blood by Automated counOrdered By: Michael Cerda on 07-15-2022 WBC corrected for nucl RBC Auto (Bld) [#/Vol] 7.8 10*3/uL 3.8-11.6 [facility] Lymphocytes Auto (Bld) [#/Vo l]Ordered By: Michael Cerda on 07-15-2022 Lymphocytes (Bld) [#/Vol] 1.2 10*3/uL 1.00-4.8 [facility] Lymphocytes/100 WBC Auto (Bl d)Ordered By: Michael Cerda on 07-15-2022 Lymphocytes/100 WBC (Bld) 15.2 % . [facility] MCH Auto (RBC) [Entitic mass ]Ordered By: Michael Cerda on 07-15-2022 MCH (RBC) [Entitic mass] 31.8 pg 24.7-34.3 [facility] MCHC Auto (RBC) [Mass/Vol]Or dered By: Michael Cerda on 07-15-2022 MCHC (RBC) [Mass/Vol] 33.0 g/dL 32.0-35.0 [facility] MCV Auto (RBC) [Entitic vol] Ordered By: Michael Cerda on 07-15-2022 MCV (RBC) [Entitic vol] 96.4 fL 80-100 [facility] Monocyte distribution width [Entitic volume] in Blood by AutomatedOrdered By: Michael Cerda on 07-15-2022 Monocyte distribution width Auto (Bld) [Entitic vol] 19.01 % 0.00-20.00 [facility] Monocytes Auto (Bld) [#/Vol] Ordered By: Michael Cerda on 07-15-2022 Monocytes (Bld) [#/Vol] 0.4 10*3/uL 0.0-0.8 [facility] Monocytes/100 WBC Auto (Bld) Ordered By: Michael Cerda on 07-15-2022 Monocytes/100 WBC (Bld) 5.1 % . [facility] Neutrophils Auto (Bld) [#/Vo l]Ordered By: Michael Cerda on 07-15-2022 Neutrophils (Bld) [#/Vol] 6.1 10*3/uL 1.8-7.7 [facility] Neutrophils/100 WBC Auto (Bl d)Ordered By: Michael Cerda on 07-15-2022 Neutrophils/100 WBC (Bld) 78.9 % . [facility] Nitrite Test strip Ql (U)Ord ered By: Michael Cerda on 07-15-2022 Nitrite Ql (U) Negative Negative [facility] No Panel InformationOrdered By: Eduardo Swain on 07-15-2022 25-Hydroxy Vitamin D Total 38.8 ng/mL 30-100 [facility] Comment on above: VITAMIN D STATUS 25( OH)VITAMIN D RANGE (ng/mL) Deficient <20 Insufficient 20 to <30Sufficient 30 to 100Reference: Franklyn MF,Benjamin GRAF, Andreina MARQUEZ, et al. Evaluation,treatment, and prevention of vitamin D deficiency; an Endocrine Society clinical practice guideline. JCEM. 2010; 96(7):1911-30. No Panel InformationOrdered By: Michael Cerda on 07-15-2022 Estimated GFR () > 60 mL/Min [facility] Comment on above: GFR estimated refere nce range: According to KDOQI guidelines, <60 ml/min/1.73m2 is sufficient to diagnose a patient with chronic kidney disease. Pharmacy Creatinine Clearance (Chem 148.00 [facility] Nucleated erythrocytes [Pres ence] in Blood by Automated countOrdered By: Michael Cerda on 07-15-2022 Nucleated RBC Auto Ql (Bld) 0.1 /100{WBC} 0-0.5 [facility] Phencyclidine Screen Ql (U)O rdered By: Michael Cerda on 07-15-2022 Phencyclidine Ql (U) Negative Negative [facility] Platelet mean volume Auto (B ld) [Entitic vol]Ordered By: Michael Cerda on 07-15-2022 Platelet mean volume (Bld) [Entitic vol] 7.9 fL 6.3-10.7 [facility] Platelets Auto (Bld) [#/Vol] Ordered By: Michael Cerda on 07-15-2022 Platelets (Bld) [#/Vol] 157 10*3/uL 150-450 [facility] Protein Auto test strip (U) [Mass/Vol]Ordered By: Michael Cerda on 07-15-2022 Protein (U) [Mass/Vol] Negative Negative [facility] Protein [Mass/volume] in Ser um or PlasmaOrdered By: Michael Cerda on 07-15-2022 Protein [Mass/Vol] 6.1 g/dL 6.1-7.9 [facility] RBC Auto (Bld) [#/Vol]Ordere d By: Michael Cerda on 07-15-2022 RBC (Bld) [#/Vol] 3.57 10*6/uL 3.60-5.[address] [facility] Serum or plasma alanine cox otransferase measurement without P-5'-P (enzymatic activiOrdered By: Michael Cerda on 07-15-2022 ALT No additional P-5'-P [Catalytic activity/Vol] 14 U/L 10-60 [facility] Serum or plasma albumin/glob ulin mass ratioOrdered By: Michael Cerda on 07-15-2022 Albumin/Globulin [Mass ratio] 0.9 {ratio} [facility] Serum or plasma alkaline sam sphatase measurement (enzymatic activity/volume)Ordered By: Michael Cerda on 07-15-2022 ALP [Catalytic activity/Vol] 83 U/L 32-92 [facility] Serum or plasma anion gap de terminationOrdered By: Michael Cerda on 07-15-2022 Anion gap [Moles/Vol] 13.3 mmol/L 6.0-15.0 [facility] Serum or plasma aspartate am inotransferase measurement (enzymatic activity/volume)Ordered By: Michael Cerda on 07-15-2022 AST [Catalytic activity/Vol] 22 U/L 10-42 [facility] Serum or plasma calcium katie urement (mass/volume)Ordered By: Michael Cerda on 07-15-2022 Calcium [Mass/Vol] 9.5 mg/dL 8.2-10.2 [facility] Serum or plasma chloride victorino surement (moles/volume)Ordered By: Michael Cerda on 07-15-2022 Chloride [Moles/Vol] 104 mmol/L 95-114 [facility] Serum or plasma ethanol katie urement (mass/volume)Ordered By: Michael Cerda on 07-15-2022 Ethanol [Mass/Vol] mg/dL [facility] Ethanol [Mass/Vol] TNP [facility] Comment on above: Test not performed Serum or plasma glucose katie urement (mass/volume)Ordered By: Michael Cerda on 07-15-2022 Glucose [Mass/Vol] 82 mg/dL 70-100 [facility] Comment on above: ADA recommended refe rence rangeRandom Glucose Reference Range is dependent on time and content of last meal. Glucose of more than 200 mg/dL in a nonstressed, ambulatory subject supports the diagnosis of Diabetes Mellitus. Serum or plasma high density lipoprotein (HDL) cholesterol measurementOrdered By: Eduardo Swain on 07-15-2022 Cholesterol in HDL [Mass/Vol] 72 mg/dL 35-85 [facility] Comment on above: HDL CHOL ATP-III CLA SSIFICATION Cardiovascular RiskHDL > or equal to 60 mg/dL LOWHDL < 40 mg/dL HIGH Serum or plasma potassium me asurement (moles/volume)Ordered By: Michael Cerda on 07-15-2022 Potassium [Moles/Vol] 3.6 mmol/L 3.5-5.1 [facility] Serum or plasma sodium measu rement (moles/volume)Ordered By: Michael Cerda on 07-15-2022 Sodium [Moles/Vol] 135 mmol/L 136-146 [facility] Serum or plasma total biliru bin measurement (mass/volume)Ordered By: Michael Cerda on 07-15-2022 Bilirubin [Mass/Vol] 0.6 mg/dL 0.3-1.2 [facility] Serum or plasma total carbon dioxide measurement (moles/volume)Ordered By: Michael Cerda on 07-15-2022 CO2 [Moles/Vol] 21.3 mmol/L 22.0-30.0 [facility] Serum or plasma total choles terol/high density lipoprotein (HDL) cholesterol mass ratOrdered By: Eduardo Swain on 07-15-2022 Cholesterol.total/Chol esterol in HDL [Mass ratio] 3.5 {ratio} <5.0 [facility] Serum or plasma urea nitroge n measurement (mass/volume)Ordered By: Michael Cerda on 07-15-2022 Urea nitrogen [Mass/Vol] 4 mg/dL 9-23 [facility] Specific gravity Auto test s trip (U) [Rel density]Ordered By: Michael Cerda on 07-15-2022 Specific gravity (U) [Rel density] 1.010 1.001-1.030 [facility] Squamous epithelial cells de tection in urine sediment by light microscopyOrdered By: Michael Cerda on 07-15-2022 Epithelial cells.squamous LM Ql (Urine sed) 5-9 [HPF] 0-2 [facility] TSH DL <= 0.005 mIU/L QnOrde red By: Eduardo Swain on 07-15-2022 TSH Qn 2.04 m[IU]/L 0.45-5.33 [facility] Triglyceride [Mass/volume] i n Serum or PlasmaOrdered By: Eduardo Swain on 07-15-2022 Triglyceride [Mass/Vol] 200 mg/dL 35-149 [facility] Comment on above: TRIG ATP III CLASSIF ICATIONTRIG less than 150 mg/dL NormalTRIG 150-199 mg/dL Borderline highTRIG 200-500 mg/dL High TRIG greater than 500 mg/dL Very highStandard traceable to the Center for Disease Conrtrol and Prevention (CDC) test method. Urine bacteria detection by automated methodOrdered By: Michael Cerda on 07-15-2022 Bacteria Auto Ql (U) None seen None Seen [facility] Urine clarity by refractomet ry automatedOrdered By: Michael Cerda on 07-15-2022 Clarity Refractometry automated (U) Cloudy Clear [facility] Urine cocaine detectionOrder ed By: Michael Cerda on 07-15-2022 Cocaine Ql (U) Negative Negative [facility] Urine culture routineOrdered By: Michael Cerda on 07-15-2022 Bacteria identified Cx Nom (U) 2 Days [facility] Urine glucose measurement by automated test strip (mass/volume)Ordered By: Michael Cerda on 07-15-2022 Glucose Auto test strip (U) [Mass/Vol] Normal mg/dL Normal [facility] Urine hemoglobin detection b y automated test stripOrdered By: Michael Cerda on 07-15-2022 Hemoglobin Auto test strip Ql (U) Negative Negative [facility] Urine leukocyte esterase det ection by automated test stripOrdered By: Michael Cerda on 07-15-2022 Leukocyte esterase Auto test strip Ql (U) 4+ Negative [facility] Urobilinogen Auto test strip (U) [Mass/Vol]Ordered By: Michael Cerda on 07-15-2022 Urobilinogen (U) [Mass/Vol] Normal mg/dL Normal [facility] WBC Auto (Bld) [#/Vol]Ordere d By: Michael Cerda on 07-15-2022 WBC (Bld) [#/Vol] 7.8 10*3/uL 3.8-11.6 [facility] pH Auto test strip (U)Ordere d By: Michael Cerda on 07-15-2022 pH (U) 5.5 [pH] 5.0-9.0 [facility] Basophils Auto (Bld) [#/Vol] Ordered By: Urbano Palma on 07-09-2022 Basophils (Bld) [#/Vol] 0.0 10*3/uL 0.0-0.2 [facility] Basophils/100 WBC Auto (Bld) Ordered By: Urbano Palma on 07-09-2022 Basophils/100 WBC (Bld) 0.4 % . [facility] Eosinophils Auto (Bld) [#/Vo l]Ordered By: Urbano Palma on 07-09-2022 Eosinophils (Bld) [#/Vol] 0.1 10*3/uL 0.0-0.45 [facility] Eosinophils/100 WBC Auto (Bl d)Ordered By: Urbano Palma on 07-09-2022 Eosinophils/100 WBC (Bld) 1.0 % . [facility] Erythrocyte distribution wid th Auto (RBC) [Ratio]Ordered By: Urbano Palma on 07-09-2022 Erythrocyte distribution width (RBC) [Ratio] 19.0 % 11.9-15.3 [facility] Hematocrit Auto (Bld) [Volum e fraction]Ordered By: Urbano Palma on 07-09-2022 Hematocrit (Bld) [Volume fraction] 37.4 % 34.0-46.4 [facility] Hemoglobin [Mass/volume] in BloodOrdered By: Urbano Palma on 07-09-2022 Hemoglobin (Bld) [Mass/Vol] 12.2 g/dL 11.8-15.4 [facility] Leukocytes [#/volume] correc nneka for nucleated erythrocytes in Blood by Automated counOrdered By: Urbano Palma on 07-09-2022 WBC corrected for nucl RBC Auto (Bld) [#/Vol] 8.1 10*3/uL 3.8-11.6 [facility] Lymphocytes Auto (Bld) [#/Vo l]Ordered By: Urbano Palma on 07-09-2022 Lymphocytes (Bld) [#/Vol] 1.2 10*3/uL 1.00-4.8 [facility] Lymphocytes/100 WBC Auto (Bl d)Ordered By: Urbano Palma on 07-09-2022 Lymphocytes/100 WBC (Bld) 14.9 % . [facility] MCH Auto (RBC) [Entitic mass ]Ordered By: Urbano Palma on 07-09-2022 MCH (RBC) [Entitic mass] 31.4 pg 24.7-34.3 [facility] MCHC Auto (RBC) [Mass/Vol]Or dered By: Urbano Palma on 07-09-2022 MCHC (RBC) [Mass/Vol] 32.7 g/dL 32.0-35.0 [facility] MCV Auto (RBC) [Entitic vol] Ordered By: Urbano Palma on 07-09-2022 MCV (RBC) [Entitic vol] 95.8 fL 80-100 [facility] Monocytes Auto (Bld) [#/Vol] Ordered By: Urbano Palma on 07-09-2022 Monocytes (Bld) [#/Vol] 0.4 10*3/uL 0.0-0.8 [facility] Monocytes/100 WBC Auto (Bld) Ordered By: Urbano Plama on 07-09-2022 Monocytes/100 WBC (Bld) 5.1 % . [facility] Neutrophils Auto (Bld) [#/Vo l]Ordered By: Urbano Palma on 07-09-2022 Neutrophils (Bld) [#/Vol] 6.3 10*3/uL 1.8-7.7 [facility] Neutrophils/100 WBC Auto (Bl d)Ordered By: Urbano Palma on 07-09-2022 Neutrophils/100 WBC (Bld) 78.6 % . [facility] Nucleated erythrocytes [Pres ence] in Blood by Automated countOrdered By: Urbano Palma on 07-09-2022 Nucleated RBC Auto Ql (Bld) 0.1 /100{WBC} 0-0.5 [facility] Platelet mean volume Auto (B ld) [Entitic vol]Ordered By: Urbano Palma on 07-09-2022 Platelet mean volume (Bld) [Entitic vol] 8.2 fL 6.3-10.7 [facility] Platelets Auto (Bld) [#/Vol] Ordered By: Urbano Palma on 07-09-2022 Platelets (Bld) [#/Vol] 180 10*3/uL 150-450 [facility] RBC Auto (Bld) [#/Vol]Ordere d By: Urbano Palma on 07-09-2022 RBC (Bld) [#/Vol] 3.91 10*6/uL 3.60-5.[address] [facility] WBC Auto (Bld) [#/Vol]Ordere d By: Urbano Palma on 07-09-2022 WBC (Bld) [#/Vol] 8.1 10*3/uL 3.8-11.6 [facility] Serum or plasma glucose tolangelica rai 3 hours panelOrdered By: Urbano Palma on 06-30-2022 Glucose tolerance 3 hours panel See comment [facility] Comment on above: FASTING 82 Col: 03/14 0616 1HR GLU 215 Col: 06/30/22 0800 2HR GLU 194 Col: 06/30/22 0901 3HR GLU 71 Col: 06/30/22 1000 Amphetamine Screen Ql (U)Ord ered By: DELANEY CARLISLE on 06-26-2022 Amphetamines Ql (U) Negative Negative [facility] Automated erythrocytes count in urine sediment (number/area)Ordered By: DELANEY CARLISLE on 06-26-2022 RBC Auto (Urine sed) [#/Area] 1-2 [HPF] 0-4 [facility] Automated leukocytes count i n urine sediment (number/area)Ordered By: DELANEY CARLISLE on 06-26-2022 WBC Auto (Urine sed) [#/Area] 50-100 [HPF] 0-4 [facility] Automated urine hyaline cast s count (number/volume)Ordered By: DELANEY CARLISLE on 06-26-2022 Hyaline casts Auto (U) [#/Vol] None seen [LPF] 0-1 [facility] Automated urine sediment claudia cium oxalate crystal count by microscopy (number/high powOrdered By: DELANEY CARLISLE on 01-05-2023 Calcium oxalate crystals LM.HPF (Urine sed) [#/Area] 3+ [HPF] [facility] Barbiturates [Presence] in U rineOrdered By: DELANEY CARLISLE on 06-26-2022 Barbiturates Ql (U) Negative Negative [facility] Benzodiazepines [Presence] i n UrineOrdered By: DELANEY CARLISLE on 06-26-2022 Benzodiazepines Ql (U) Negative Negative [facility] Bilirubin Test strip Ql (U)O rdered By: DELANEY CARLISLE on 06-26-2022 Bilirubin Ql (U) 1+ Negative [facility] Color Auto (U)Ordered By: VLAD CARLISLE on 06-26-2022 Color (U) Dark yellow Yellow [facility] fibronectinOrdered By: DELANEY CARLISLE on 06-26-2022 Fibronectin. (Vag fld) [Mass/Vol] Negative Negative [facility] Ketones Auto test strip (U) [Mass/Vol]Ordered By: DELANEY CARLISLE on 06-26-2022 Ketones (U) [Mass/Vol] 1+ Negative [facility] - Drug toxicology Ordered By: DELANEY CARLISLE on 06-26-2022 Opiates Ql (U) Negative Negative [facility] Nitrite Test strip Ql (U)Ord ered By: DELANEY CARLISLE on 06-26-2022 Nitrite Ql (U) Negative Negative [facility] No Panel InformationOrdered By: DELANEY CARLISLE on 06-26-2022 Membranes Rupture (PAMG-1) Negative Negative [facility] Phencyclidine Screen Ql (U)O rdered By: DELANEY CARLISLE on 06-26-2022 Phencyclidine Ql (U) Negative Negative [facility] Comment on above: These are unconfirme d results and should not be used for legal purposes. Drug Cut-Off Concentration: AMPH 1000 ng/mL BOO 200 ng/mL HELGA 200 ng/mL COCM 300 ng/mL OP 300 ng/mL PCP 25 ng/mL Protein Auto test strip (U) [Mass/Vol]Ordered By: DELANEY CARLISLE on 06-26-2022 Protein (U) [Mass/Vol] 30 mg/dL Negative [facility] Specific gravity Auto test s trip (U) [Rel density]Ordered By: DELANEY CARLISLE on 06-26-2022 Specific gravity (U) [Rel density] 1.029 1.001-1.030 [facility] Squamous epithelial cells de tection in urine sediment by light microscopyOrdered By: DELANEY CARLISLE on 06-26-2022 Epithelial cells.squamous LM Ql (Urine sed) 5-9 [HPF] 0-2 [facility] Urine bacteria detection by automated methodOrdered By: DELANEY CARLISLE on 06-26-2022 Bacteria Auto Ql (U) None seen None Seen [facility] Urine clarity by refractomet ry automatedOrdered By: DELANEY CARLISLE on 06-26-2022 Clarity Refractometry automated (U) Turbid Clear [facility] Urine cocaine detectionOrder ed By: DELANEY CARLISLE on 06-26-2022 Cocaine Ql (U) Negative Negative [facility] Urine culture routineOrdered By: DELANEY CARLISLE on 06-26-2022 Bacteria identified Cx Nom (U) Cinthya albicans [facility] Urine glucose measurement by automated test strip (mass/volume)Ordered By: DELANEY CARLISLE on 06-26-2022 Glucose Auto test strip (U) [Mass/Vol] Normal mg/dL Normal [facility] Urine hemoglobin detection b y automated test stripOrdered By: DELANEY CARLISLE on 06-26-2022 Hemoglobin Auto test strip Ql (U) Negative Negative [facility] Urine leukocyte esterase det ection by automated test stripOrdered By: DELANEY CARLISLE on 06-26-2022 Leukocyte esterase Auto test strip Ql (U) 3+ Negative [facility] Urine sediment crystal ident ification by light microscopyOrdered By: DELANEY CARLISLE on 06-26-2022 Crystals LM Nom (Urine sed) None seen [HPF] [facility] Urobilinogen Auto test strip (U) [Mass/Vol]Ordered By: DELANEY CARLISLE on 06-26-2022 Urobilinogen (U) [Mass/Vol] Normal mg/dL Normal [facility] Yeast detection in urine sed iment by light microscopyOrdered By: DELANEY CARLISLE on 06-26-2022 Yeast LM Ql (Urine sed) 2+ [HPF] None Seen [facility] pH Auto test strip (U)Ordere d By: DELANEY CARLISLE on 06-26-2022 pH (U) 5.5 [pH] 5.0-9.0 [facility] Automated erythrocytes count in urine sediment (number/area)Ordered By: Michael Cerda on 06-25-2022 RBC Auto (Urine sed) [#/Area] 3-4 [HPF] 0-4 [facility] Automated leukocytes count i n urine sediment (number/area)Ordered By: Michael Cerda on 06-25-2022 WBC Auto (Urine sed) [#/Area] Innumerable [HPF] 0-4 [facility] Basophils Auto (Bld) [#/Vol] Ordered By: PROVIDER TEMP on 06-25-2022 Basophils (Bld) [#/Vol] 0.0 10*3/uL 0.0-0.2 [facility] Basophils/100 WBC Auto (Bld) Ordered By: PROVIDER TEMP on 06-25-2022 Basophils/100 WBC (Bld) 0.1 % . [facility] Bilirubin Test strip Ql (U)O rdered By: Michael Cerda on 06-25-2022 Bilirubin Ql (U) Negative Negative [facility] Body fluid albumin measureme nt (mass/volume)Ordered By: PROVIDER TEMP on 06-25-2022 Albumin (Body fld) [Mass/Vol] 2.7 g/dL 3.2-5.5 [facility] Casts typing in urine sedime nt by light microscopyOrdered By: Michael Cerda on 06-25-2022 Casts LM Nom (Urine sed) None seen [LPF] None Seen [facility] Color Auto (U)Ordered By: Lorene Cerda on 06-25-2022 Color (U) Yellow Yellow [facility] Creatinine and Glomerular fi ltration rate.predicted panel (S/P/Bld)Ordered By: PROVIDER TEMP on 06-25-2022 Creatinine [Mass/Vol] 0.64 mg/dL 0.44-1.03 [facility] Eosinophils Auto (Bld) [#/Vo l]Ordered By: PROVIDER TEMP on 06-25-2022 Eosinophils (Bld) [#/Vol] 0.1 10*3/uL 0.0-0.45 [facility] Eosinophils/100 WBC Auto (Bl d)Ordered By: PROVIDER TEMP on 06-25-2022 Eosinophils/100 WBC (Bld) 0.7 % . [facility] Erythrocyte distribution wid th Auto (RBC) [Ratio]Ordered By: PROVIDER TEMP on 06-25-2022 Erythrocyte distribution width (RBC) [Ratio] 16.1 % 11.9-15.3 [facility] Estimated glomerular filtrat ion rate (GFR) non- AmericanOrdered By: PROVIDER TEMP on 06-25-2022 GFR/1.73 sq M.predicted among non-blacks MDRD (S/P/Bld) [Vol rate/Area] > 60 mL/Min [facility] Globulin Calc (S) [Mass/Vol] Ordered By: PROVIDER TEMP on 06-25-2022 Globulin (S) [Mass/Vol] 3.3 g/dL [facility] Hematocrit Auto (Bld) [Volum e fraction]Ordered By: PROVIDER TEMP on 06-25-2022 Hematocrit (Bld) [Volume fraction] 29.0 % 34.0-46.4 [facility] Hemoglobin [Mass/volume] in BloodOrdered By: PROVIDER TEMP on 06-25-2022 Hemoglobin (Bld) [Mass/Vol] 9.9 g/dL 11.8-15.4 [facility] Ketones Auto test strip (U) [Mass/Vol]Ordered By: Michael Cerda on 06-25-2022 Ketones (U) [Mass/Vol] 4+ Negative [facility] - UrinalysisOrder ed By: Michael Cerda on 06-25-2022 Hyaline casts LM Ql (Urine sed) 0-1 [LPF] 0-8 [facility] Leukocytes [#/volume] correc nneka for nucleated erythrocytes in Blood by Automated counOrdered By: PROVIDER TEMP on 06-25-2022 WBC corrected for nucl RBC Auto (Bld) [#/Vol] 10.5 10*3/uL 3.8-11.6 [facility] Lymphocytes Auto (Bld) [#/Vo l]Ordered By: PROVIDER TEMP on 06-25-2022 Lymphocytes (Bld) [#/Vol] 1.8 10*3/uL 1.00-4.8 [facility] Lymphocytes/100 WBC Auto (Bl d)Ordered By: PROVIDER TEMP on 06-25-2022 Lymphocytes/100 WBC (Bld) 16.7 % . [facility] MCH Auto (RBC) [Entitic mass ]Ordered By: PROVIDER TEMP on 06-25-2022 MCH (RBC) [Entitic mass] 31.6 pg 24.7-34.3 [facility] MCHC Auto (RBC) [Mass/Vol]Or dered By: PROVIDER TEMP on 06-25-2022 MCHC (RBC) [Mass/Vol] 34.2 g/dL 32.0-35.0 [facility] MCV Auto (RBC) [Entitic vol] Ordered By: PROVIDER TEMP on 06-25-2022 MCV (RBC) [Entitic vol] 92.4 fL 80-100 [facility] Monocyte distribution width [Entitic volume] in Blood by AutomatedOrdered By: PROVIDER TEMP on 06-25-2022 Monocyte distribution width Auto (Bld) [Entitic vol] 18.74 % 0.00-20.00 [facility] Monocytes Auto (Bld) [#/Vol] Ordered By: PROVIDER TEMP on 06-25-2022 Monocytes (Bld) [#/Vol] 0.8 10*3/uL 0.0-0.8 [facility] Monocytes/100 WBC Auto (Bld) Ordered By: PROVIDER TEMP on 06-25-2022 Monocytes/100 WBC (Bld) 7.5 % . [facility] Neutrophils Auto (Bld) [#/Vo l]Ordered By: PROVIDER TEMP on 06-25-2022 Neutrophils (Bld) [#/Vol] 7.9 10*3/uL 1.8-7.7 [facility] Neutrophils/100 WBC Auto (Bl d)Ordered By: PROVIDER TEMP on 06-25-2022 Neutrophils/100 WBC (Bld) 75.0 % . [facility] Nitrite Test strip Ql (U)Ord ered By: Michael Cerda on 06-25-2022 Nitrite Ql (U) Negative Negative [facility] No Panel InformationOrdered By: PROVIDER TEMP on 06-25-2022 Estimated GFR () > 60 mL/Min [facility] Comment on above: GFR estimated refere nce range: According to KDOQI guidelines, <60 ml/min/1.73m2 is sufficient to diagnose a patient with chronic kidney disease. Pharmacy Creatinine Clearance (Chem 153.48 [facility] Nucleated erythrocytes [Pres ence] in Blood by Automated countOrdered By: PROVIDER TEMP on 06-25-2022 Nucleated RBC Auto Ql (Bld) 0.3 /100{WBC} 0-0.5 [facility] Platelet mean volume Auto (B ld) [Entitic vol]Ordered By: PROVIDER TEMP on 06-25-2022 Platelet mean volume (Bld) [Entitic vol] 7.8 fL 6.3-10.7 [facility] Platelets Auto (Bld) [#/Vol] Ordered By: PROVIDER TEMP on 06-25-2022 Platelets (Bld) [#/Vol] 182 10*3/uL 150-450 [facility] Protein Auto test strip (U) [Mass/Vol]Ordered By: Michael Cerda on 06-25-2022 Protein (U) [Mass/Vol] Trace mg/dL Negative [facility] Protein [Mass/volume] in Ser um or PlasmaOrdered By: PROVIDER TEMP on 06-25-2022 Protein [Mass/Vol] 6.0 g/dL 6.1-7.9 [facility] RBC Auto (Bld) [#/Vol]Ordere d By: PROVIDER TEMP on 06-25-2022 RBC (Bld) [#/Vol] 3.14 10*6/uL 3.60-5.[address] [facility] Serum or plasma alanine cox otransferase measurement without P-5'-P (enzymatic activiOrdered By: PROVIDER TEMP on 06-25-2022 ALT No additional P-5'-P [Catalytic activity/Vol] 10 U/L 10-60 [facility] Serum or plasma albumin/glob ulin mass ratioOrdered By: PROVIDER TEMP on 06-25-2022 Albumin/Globulin [Mass ratio] 0.8 {ratio} [facility] Serum or plasma alkaline sam sphatase measurement (enzymatic activity/volume)Ordered By: PROVIDER TEMP on 06-25-2022 ALP [Catalytic activity/Vol] 77 U/L 32-92 [facility] Serum or plasma anion gap de terminationOrdered By: PROVIDER TEMP on 06-25-2022 Anion gap [Moles/Vol] 15.1 mmol/L 6.0-15.0 [facility] Serum or plasma aspartate am inotransferase measurement (enzymatic activity/volume)Ordered By: PROVIDER TEMP on 06-25-2022 AST [Catalytic activity/Vol] 20 U/L 10-42 [facility] Serum or plasma calcium katie urement (mass/volume)Ordered By: PROVIDER TEMP on 06-25-2022 Calcium [Mass/Vol] 9.3 mg/dL 8.2-10.2 [facility] Serum or plasma chloride victorino surement (moles/volume)Ordered By: PROVIDER TEMP on 06-25-2022 Chloride [Moles/Vol] 107 mmol/L 95-114 [facility] Serum or plasma glucose katie urement (mass/volume)Ordered By: PROVIDER TEMP on 06-25-2022 Glucose [Mass/Vol] 72 mg/dL 70-100 [facility] Comment on above: ADA recommended refe rence rangeRandom Glucose Reference Range is dependent on time and content of last meal. Glucose of more than 200 mg/dL in a nonstressed, ambulatory subject supports the diagnosis of Diabetes Mellitus. Serum or plasma potassium me asurement (moles/volume)Ordered By: PROVIDER TEMP on 06-25-2022 Potassium [Moles/Vol] 3.6 mmol/L 3.5-5.1 [facility] Serum or plasma sodium measu rement (moles/volume)Ordered By: PROVIDER TEMP on 06-25-2022 Sodium [Moles/Vol] 137 mmol/L 136-146 [facility] Serum or plasma total biliru bin measurement (mass/volume)Ordered By: PROVIDER TEMP on 06-25-2022 Bilirubin [Mass/Vol] 0.7 mg/dL 0.3-1.2 [facility] Serum or plasma total carbon dioxide measurement (moles/volume)Ordered By: PROVIDER TEMP on 06-25-2022 CO2 [Moles/Vol] 18.5 mmol/L 22.0-30.0 [facility] Serum or plasma urea nitroge n measurement (mass/volume)Ordered By: PROVIDER TEMP on 06-25-2022 Urea nitrogen [Mass/Vol] 3 mg/dL 9-23 [facility] Specific gravity Auto test s trip (U) [Rel density]Ordered By: Michael Cerda on 06-25-2022 Specific gravity (U) [Rel density] 1.016 1.001-1.030 [facility] Squamous epithelial cells de tection in urine sediment by light microscopyOrdered By: Michael Cerda on 06-25-2022 Epithelial cells.squamous LM Ql (Urine sed) 10-19 [HPF] 0-2 [facility] Troponin I.cardiac [Mass/vol ume] in Serum or Plasma by High sensitivity methodOrdered By: Michael Cerda on 06-25-2022 Troponin I.cardiac High sensitivity method [Mass/Vol] 6 pg/mL 0-15 [facility] Urine bacteria detection by automated methodOrdered By: Michael Cerda on 06-25-2022 Bacteria Auto Ql (U) 1+ None Seen [facility] Urine clarity by refractomet ry automatedOrdered By: Michael Cerda on 06-25-2022 Clarity Refractometry automated (U) Turbid Clear [facility] Urine culture routineOrdered By: Michael Cerda on 06-25-2022 Bacteria identified Cx Nom (U) 2 Days [facility] Urine glucose measurement by automated test strip (mass/volume)Ordered By: Michael Cerda on 06-25-2022 Glucose Auto test strip (U) [Mass/Vol] Normal mg/dL Normal [facility] Urine hemoglobin detection b y automated test stripOrdered By: Michael Cerda on 06-25-2022 Hemoglobin Auto test strip Ql (U) Trace Negative [facility] Urine leukocyte esterase det ection by automated test stripOrdered By: Michael Cerda on 06-25-2022 Leukocyte esterase Auto test strip Ql (U) 4+ Negative [facility] Urobilinogen Auto test strip (U) [Mass/Vol]Ordered By: Michael Cerda on 06-25-2022 Urobilinogen (U) [Mass/Vol] Normal mg/dL Normal [facility] WBC Auto (Bld) [#/Vol]Ordere d By: PROVIDER TEMP on 06-25-2022 WBC (Bld) [#/Vol] 10.5 10*3/uL 3.8-11.[address] [facility] Yeast detection in urine sed iment by light microscopyOrdered By: Michael Cerda on 06-25-2022 Yeast LM Ql (Urine sed) None seen [HPF] None Seen [facility] pH Auto test strip (U)Ordere d By: Michael Cerda on 06-25-2022 pH (U) 6.0 [pH] 5.0-9.0 [facility] GLUCOSE BLOODon 04-28-2022 Glucose [Mass/Vol] 83 mg/dL Normal 74-106 [facility] Comment on above: Performed By: #### G MINERVA, LIPID #### [facility] [address] [place] [address] Dr. Kinjal Rivers LIPID PROFILEon 04-28-2022 CHOL-HDL RATIO NORM SEE BELOW Normal [facility] Comment on above: Result Comment: 3.3 - 4.4 LOW RISK 4.4 - 7.1 AVERAGE RISK 7.1 - 11.0 MODERATE RISK >11.0 HIGH RISK Performed By: #### G MINERVA, LIPID #### [facility] [address] [address] [address] Kinjal Rivers Cholesterol [Mass/Vol] 232 mg/dL Critically high <=200 [facility] Comment on above: Performed By: #### G MINERVA, LIPID #### [facility] [address] [address] [address] Kinjal Rivers Cholesterol in HDL [Mass/Vol] 92 mg/dL Critically high 40-60 [facility] Comment on above: Performed By: #### G MINERVA, LIPID #### [facility] [address] [address] [address] Kinjal Rivers Cholesterol in LDL [Mass/Vol] 115.2 mg/dL Normal [facility] Comment on above: Performed By: #### G MINERVA, LIPID #### [facility] [address] [address] [address] Kinjal Rivers Cholesterol.total/Chol esterol in HDL [Mass ratio] 2.5 {ratio} Normal [facility] Comment on above: Performed By: #### G MINERVA, LIPID #### [facility] [address] [address] [address] Kinjal Rivers HDL NORMAL > or = 60 mg/dl - LO W CARDIOVASCULAR RISK <40 mg/dl - HIGH CARDIOVASCULAR RISK Normal [facility] Comment on above: Performed By: #### G MINERVA, LIPID #### [facility] [address] [address] [address] Kinjal Rivers LDL CALC NORMAL SEE BELOW Normal [facility] Comment on above: Result Comment: <100 mg/dl OPTIMAL 100 - 129 mg/dl NEAR OR ABOVE OPTIMAL 130 - 159 mg/dl BORDERLINE HIGH 160 - 189 mg/dl HIGH >190 mg/dl VERY HIGH Performed By: #### G MINERVA, LIPID #### [facility] [address] [address] [address] Kinjal Rivers Triglyceride [Mass/Vol] 124 mg/dL Normal <=150 [facility] Comment on above: Performed By: #### G MINERVA, LIPID #### [facility] [address] [address] [address] Kinjal Rivers VLDL CALC 24.8 mg/dL Normal [facility] Comment on above: Performed By: #### G MINERVA, LIPID #### [facility] [id number] Kinjal Rivers Echocardiogramon 02-13-[address], [address] [place] [address] TRANSTHORACIC ECHOCARDIOGRAM REPORT Patient Name: MARICARMEN Glenny Monreal Physician: [id number] Tracee ANDERSON MD Study Date: 02/13/2022 Referring [address]1963 RITA OLIVIA Physician: MRN/PID: [id number] PCP: Viktor Sotelo Accession/Order#: [id number] [facility] [place] Location: Date of : 1980 Fellow: Gender: F Nurse: Admit Date: Drawer Maker: Georgia Grajeda RDCS, RVT Height: 167.64 cm CC Report to: Weight: 102.97 kg Study Type: Echocardiogram BSA: 2.11 m2 Blood Pressure: 114 /70 mmHg Diagnosis/ICD: I47.1-Supraventricular tachycardia; R06.02-Shortness of breath; I49.5-Sick sinus syndrome Indication: Abnormal EKG-Complete Heart Block, Pacemaker, History of Syncope, Obesity, Seizure Disorder, Pt is 13 weeks Procedure/CPT: Echo Complete w Full Doppler-[id number] Study Detail: The following Echo studies were [...] 0.8 m/s (0.6-0.9m/s) PV Max P.9 mmHg [id number] Tracee Moore MD Electronically signed on 02/13/2022 at 5:36:08 PM Final Normal [facility] Echocardiography Please click on the link to view the study images Normal [facility] [address] [place] Work Phone: Falls Screening (Age 18+)on 02-13-2022 Fall risk assessment a) No falls within the last year [facility] [address] [place] Work Phone: Urine culture routineOrdered By: Raymond Oconnor on 01-22-2022 Bacteria identified Cx Nom (U) 2 Days [facility] Albumin [Mass/volume] in Ser um or PlasmaOrdered By: Raymond Oconnor on 01-20-2022 Albumin [Mass/Vol] 3.4 g/dL 3.2-5.5 [facility] Automated erythrocytes count in urine sediment (number/area)Ordered By: Raymond Oconnor on 01-20-2022 RBC Auto (Urine sed) [#/Area] 3-4 [HPF] 0-4 [facility] Automated leukocytes count i n urine sediment (number/area)Ordered By: Raymond Oconnor on 01-20-2022 WBC Auto (Urine sed) [#/Area] 20-49 [HPF] 0-4 [facility] Automated urine sediment claudia cium oxalate crystal count by microscopy (number/high powOrdered By: Raymond Oconnor on 01-20-2022 Calcium oxalate crystals LM.HPF (Urine sed) [#/Area] 4+ [HPF] [facility] Basophils Auto (Bld) [#/Vol] Ordered By: Raymond Oconnor on 01-20-2022 Basophils (Bld) [#/Vol] 0.0 10*3/uL 0.0-0.2 [facility] Basophils/100 WBC Auto (Bld) Ordered By: Raymond Oconnor on 01-20-2022 Basophils/100 WBC (Bld) 0.4 % . [facility] Bilirubin Auto test strip Ql (U)Ordered By: Raymond Oconnor on 01-20-2022 Bilirubin Ql (U) Negative Negative [facility] Blood hemoglobin measurement (mass/volume)Ordered By: Raymond Oconnor on 01-20-2022 Hemoglobin (Bld) [Mass/Vol] 10.6 g/dL 11.8-15.4 [facility] Blood leukocytes automated c ount (number/volume)Ordered By: Raymond Oconnor on 01-20-2022 WBC (Bld) [#/Vol] 6.8 10*3/uL 4.5-11.0 [facility] Creatinine and Glomerular fi ltration rate.predicted panel (S/P/Bld)Ordered By: Raymond Oconnor on 01-20-2022 Creatinine [Mass/Vol] 0.62 mg/dL 0.44-1.03 [facility] Eosinophils Auto (Bld) [#/Vo l]Ordered By: Raymond Oconnor on 01-20-2022 Eosinophils (Bld) [#/Vol] 0.1 10*3/uL 0.0-0.45 [facility] Eosinophils/100 WBC Auto (Bl d)Ordered By: Raymond Oconnor on 01-20-2022 Eosinophils/100 WBC (Bld) 1.5 % . [facility] Erythrocyte distribution wid th Auto (RBC) [Ratio]Ordered By: Raymond Oconnor on 01-20-2022 Erythrocyte distribution width (RBC) [Ratio] 18.2 % 11.9-15.3 [facility] Estimated glomerular filtrat ion rate (GFR) non- AmericanOrdered By: Raymond Oconnor on 01-20-2022 GFR/1.73 sq M.predicted among non-blacks MDRD (S/P/Bld) [Vol rate/Area] > 60 mL/Min [facility] Globulin Calc (S) [Mass/Vol] Ordered By: Raymond Oconnor on 01-20-2022 Globulin (S) [Mass/Vol] 3.1 g/dL [facility] Hematocrit Auto (Bld) [Volum e fraction]Ordered By: Raymond Oconnor on 01-20-2022 Hematocrit (Bld) [Volume fraction] 33.6 % 34.0-46.4 [facility] Ketones Auto test strip (U) [Mass/Vol]Ordered By: Raymond Oconnor on 01-20-2022 Ketones (U) [Mass/Vol] Negative Negative [facility] - Hematology and Cell countsOrdered By: Raymond Oconnor on 01-20-2022 Nucleated RBC/100 WBC (Bld) [Ratio] 0.0 % 0-0.5 [facility] Laboratory - UrinalysisOrder ed By: Raymond Oconnor on 01-20-2022 Hyaline casts LM Ql (Urine sed) 0-8 [LPF] 0-8 [facility] Lymphocytes Auto (Bld) [#/Vo l]Ordered By: Raymond Oconnor on 01-20-2022 Lymphocytes (Bld) [#/Vol] 1.3 10*3/uL 1.00-4.8 [facility] Lymphocytes/100 WBC Auto (Bl d)Ordered By: Raymond Oconnor on 01-20-2022 Lymphocytes/100 WBC (Bld) 19.1 % . [facility] MCH Auto (RBC) [Entitic mass ]Ordered By: Raymond Oconnor on 01-20-2022 MCH (RBC) [Entitic mass] 26.9 pg 24.7-34.3 [facility] MCHC Auto (RBC) [Mass/Vol]Or dered By: Raymond Oconnor on 01-20-2022 MCHC (RBC) [Mass/Vol] 31.7 g/dL 32.0-35.0 [facility] MCV Auto (RBC) [Entitic vol] Ordered By: Raymond Oconnor on 01-20-2022 MCV (RBC) [Entitic vol] 84.8 fL 80-100 [facility] Monocytes Auto (Bld) [#/Vol] Ordered By: Raymond Oconnor on 01-20-2022 Monocytes (Bld) [#/Vol] 0.4 10*3/uL 0.0-0.8 [facility] Monocytes/100 WBC Auto (Bld) Ordered By: Raymond Oconnor on 01-20-2022 Monocytes/100 WBC (Bld) 6.6 % . [facility] Neutrophils Auto (Bld) [#/Vo l]Ordered By: Raymond Oconnor on 01-20-2022 Neutrophils (Bld) [#/Vol] 4.9 10*3/uL 1.8-7.7 [facility] Neutrophils/100 WBC Auto (Bl d)Ordered By: Raymond Oconnor on 01-20-2022 Neutrophils/100 WBC (Bld) 72.4 % . [facility] No Panel InformationOrdered By: Raymond Oconnor on 01-20-2022 Estimated GFR () > 60 mL/Min [facility] Comment on above: GFR estimated refere nce range: According to KDOQI guidelines, <60 ml/min/1.73m2 is sufficient to diagnose a patient with chronic kidney disease. Pharmacy Creatinine Clearance (Chem 147.20 [facility] Platelet mean volume Auto (B ld) [Entitic vol]Ordered By: Raymond Oconnor on 01-20-2022 Platelet mean volume (Bld) [Entitic vol] 8.1 fL 6.3-10.7 [facility] Platelets Auto (Bld) [#/Vol] Ordered By: Raymond Oconnor on 01-20-2022 Platelets (Bld) [#/Vol] 214 10*3/uL 150-450 [facility] Protein Auto test strip (U) [Mass/Vol]Ordered By: Raymond Oconnor on 01-20-2022 Protein (U) [Mass/Vol] Negative Negative [facility] Protein [Mass/volume] in Ser um or PlasmaOrdered By: Raymond Oconnor on 01-20-2022 Protein [Mass/Vol] 6.5 g/dL 6.1-7.9 [facility] RBC Auto (Bld) [#/Vol]Ordere d By: Raymond Oconnor on 01-20-2022 RBC (Bld) [#/Vol] 3.95 10*6/uL 3.60-5.[address] [facility] Serum or plasma alanine cox otransferase measurement without P-5'-P (enzymatic activiOrdered By: Raymond Oconnor on 01-20-2022 ALT No additional P-5'-P [Catalytic activity/Vol] 10 U/L 10-60 [facility] Serum or plasma albumin/glob ulin mass ratioOrdered By: Raymond Oconnor on 01-20-2022 Albumin/Globulin [Mass ratio] 1.1 {ratio} [facility] Serum or plasma alkaline sam sphatase measurement (enzymatic activity/volume)Ordered By: Raymond Oconnor on 01-20-2022 ALP [Catalytic activity/Vol] 51 U/L 32-92 [facility] Serum or plasma aspartate am inotransferase measurement (enzymatic activity/volume)Ordered By: Raymond Oconnor on 01-20-2022 AST [Catalytic activity/Vol] 16 U/L 10-42 [facility] Serum or plasma calcium katie urement (mass/volume)Ordered By: Raymond Oconnor on 01-20-2022 Calcium [Mass/Vol] 9.4 mg/dL 8.2-10.2 [facility] Serum or plasma chloride victorino surement (moles/volume)Ordered By: Raymond Oconnor on 01-20-2022 Chloride [Moles/Vol] 103 mmol/L 95-114 [facility] Serum or plasma glucose katie urement (mass/volume)Ordered By: Raymond Oconnor on 01-20-2022 Glucose [Mass/Vol] 82 mg/dL 70-100 [facility] Comment on above: ADA recommended refe rence range Random Glucose Reference Range is dependent on time and content of last meal. Glucose of more than 200 mg/dL in a nonstressed, ambulatory subject supports the diagnosis of Diabetes Mellitus. Serum or plasma potassium me asurement (moles/volume)Ordered By: Raymond Oconnor on 01-20-2022 Potassium [Moles/Vol] 4.0 mmol/L 3.5-5.1 [facility] Serum or plasma sodium measu rement (moles/volume)Ordered By: Raymond Oconnor on 01-20-2022 Sodium [Moles/Vol] 134 mmol/L 136-146 [facility] Serum or plasma total biliru bin measurement (mass/volume)Ordered By: Raymond Oconnor on 01-20-2022 Bilirubin [Mass/Vol] 0.7 mg/dL 0.3-1.2 [facility] Serum or plasma total carbon dioxide measurement (moles/volume)Ordered By: Raymond Oconnor on 01-20-2022 CO2 [Moles/Vol] 19.6 mmol/L 22.0-30.0 [facility] Serum or plasma urea nitroge n measurement (mass/volume)Ordered By: Raymond Oconnor on 01-20-2022 Urea nitrogen [Mass/Vol] 8 mg/dL 9-23 [facility] Squamous epithelial cells de tection in urine sediment by light microscopyOrdered By: Raymond Oconnor on 01-20-2022 Epithelial cells.squamous LM Ql (Urine sed) 0-1 [HPF] 0-2 [facility] Urine appearanceOrdered By: Raymond Oconnor on 01-20-2022 Appearance (U) Clear Clear [facility] Urine bacteria detection by automated methodOrdered By: Raymond Oconnor on 01-20-2022 Bacteria Auto Ql (U) None seen None Seen [facility] Urine colorOrdered By: Chela Oconnor on 01-20-2022 Color (U) Yellow Yellow [facility] Urine glucose measurement by automated test strip (mass/volume)Ordered By: Raymond Oconnor on 01-20-2022 Glucose Auto test strip (U) [Mass/Vol] Normal mg/dL Normal [facility] Urine hemoglobin detection b y automated test stripOrdered By: Raymond Oconnor on 01-20-2022 Hemoglobin Auto test strip Ql (U) Negative Negative [facility] Urine leukocyte esterase det ection by automated test stripOrdered By: Raymond Oconnor on 01-20-2022 Leukocyte esterase Auto test strip Ql (U) 2+ Negative [facility] Urine nitrite detection by a utomated test stripOrdered By: Raymond Oconnor on 01-20-2022 Nitrite Auto test strip Ql (U) Negative Negative [facility] Urine sediment crystal ident ification by light microscopyOrdered By: Raymond Oconnor on 01-20-2022 Crystals LM Nom (Urine sed) None seen [HPF] [facility] Urobilinogen Auto test strip (U) [Mass/Vol]Ordered By: Raymond Oconnor on 01-20-2022 Urobilinogen (U) [Mass/Vol] Normal mg/dL Normal [facility] pH Auto test strip (U)Ordere d By: Raymond Oconnor on 01-20-2022 pH (U) 1.030 [pH] 1.001-1.030 [facility] pH (U) 6.0 [pH] 5.0-9.0 [facility] Tobacco Screening.on 022 Fall risk assessment a) No falls within the last year -[facility] [address] DO Work Phone: Tobacco use status CPHS b) No -[facility] [address] DO Work Phone: Tobacco Screening. Yes [facility] [address] DO Work Phone: Serum or plasma beta choriog onadotropin measurement (units/volume)Ordered By: Eduardo Swain on 12-16-2021 HCG.beta subunit Qn 3876.00 m[IU]/mL [facility] Comment on above: Approximate Approxim ate hCG Gestational Age Range (mIU/ml) (weeks) 0.2-1 5-50 1-2 50-500 2-3 100-5,000 3-4 500-10,000 4-5 1,000-50,000 5-6 10,000-100,000 6-8 15,000-200,000 8-12 10,000-100,000 Cholesterol [Mass/volume] in Serum or PlasmaOrdered By: Eduardo Swain on 12-11-2021 Cholesterol [Mass/Vol] 190 mg/dL 140-200 [facility] Comment on above: Chol less than 200 m g/dl low risk Chol 201-239 mg/dl borderline risk Chol 240 mg/dl and greater high risk Cholesterol in LDL Calc [Mas s/Vol]Ordered By: Eduardo Swain on 12-11-2021 Cholesterol in LDL [Mass/Vol] 103 mg/dL 0-100 [facility] Comment on above: LDL ATP III CLASSIFI CATION LDL less than 100 mg/dL Optimal LDL 100-129 mg/dL Near or above optimal LDL 130-159 mg/dL Borderline high LDL 160-189 mg/dL High LDL greater than 189 mg/dL Very high Cholesterol in VLDL Calc [Ma ss/Vol]Ordered By: Eduardo Swain on 12-11-2021 Cholesterol in VLDL [Mass/Vol] 9 mg/dL [facility] No Panel InformationOrdered By: Eduardo Swain on 12-11-2021 25-Hydroxy Vitamin D Total 40.6 ng/mL 30-100 [facility] Comment on above: VITAMIN D STATUS 25( [...] Cholesterol in HDL [Mass/Vol] 78 mg/dL 35-85 [facility] Comment on above: HDL CHOL ATP-III CLA SSIFICATION Cardiovascular Risk HDL > or equal to 60 mg/dL LOW HDL < 40 mg/dL HIGH Serum or plasma total choles terol/high density lipoprotein (HDL) cholesterol mass ratOrdered By: Eduardo Swain on 12-11-2021 Cholesterol.total/Chol esterol in HDL [Mass ratio] 2.4 {ratio} <5.0 [facility] TSH DL <= 0.005 mIU/L QnOrde red By: Eduardo Swain on 12-11-2021 TSH Qn 2.40 m[IU]/L 0.45-5.33 [facility] Triglyceride [Mass/volume] i n Serum or PlasmaOrdered By: Eduardo Swain on 12-11-2021 Triglyceride [Mass/Vol] 47 mg/dL 35-149 [facility] Comment on above: TRIG ATP III CLASSIF ICATION TRIG less than 150 mg/dL Normal TRIG 150-199 mg/dL Borderline high TRIG 200-500 mg/dL High TRIG greater than 500 mg/dL Very high Standard traceable to the Center for Disease Conrtrol and Prevention (CDC) test method. Serum or plasma beta choriog onadotropin measurement (units/volume)Ordered By: Eduardo Swain on 12-10-2021 HCG.beta subunit Qn 315.21 m[IU]/mL [facility] Comment on above: Approximate Approxim ate hCG Gestational Age Range (mIU/ml) (weeks) 0.2-1 5-50 1-2 50-500 2-3 100-5,000 3-4 500-10,000 4-5 1,000-50,000 5-6 10,000-100,000 6-8 15,000-200,000 8-12 10,000-100,000 Urine culture routineOrdered By: Cornell Mcnair on 12-10-2021 Bacteria identified Cx Nom (U) Strep. agalactiae Grp B [facility] Amphetamine Screen Ql (U)Ord ered By: Cornell Mcnair on 12-08-2021 Amphetamines Ql (U) Negative Negative [facility] Automated erythrocytes count in urine sediment (number/area)Ordered By: Cornell Mcnair on 12-08-2021 RBC Auto (Urine sed) [#/Area] 10-19 [HPF] 0-4 [facility] Automated leukocytes count i n urine sediment (number/area)Ordered By: Cornell Mcnair on 12-08-2021 WBC Auto (Urine sed) [#/Area] 50-100 [HPF] 0-4 [facility] Automated urine hyaline cast s count (number/volume)Ordered By: Cornell Mcnair on 12-08-2021 Hyaline casts Auto (U) [#/Vol] 0-1 [LPF] 0-1 [facility] Automated urine sediment claudia cium oxalate crystal count by microscopy (number/high powOrdered By: Cornell Mcnair on 12-08-2021 Calcium oxalate crystals LM.HPF (Urine sed) [#/Area] 3+ [HPF] [facility] Barbiturates [Presence] in U rineOrdered By: Cornell Mcnair on 12-08-2021 Barbiturates Ql (U) Negative Negative [facility] Basophils Auto (Bld) [#/Vol] Ordered By: Cornell Mcnair on 12-08-2021 Basophils (Bld) [#/Vol] 0.0 10*3/uL 0.0-0.2 [facility] Basophils/100 WBC Auto (Bld) Ordered By: Cornell Mcnair on 12-08-2021 Basophils/100 WBC (Bld) 0.6 % . [facility] Benzodiazepines [Presence] i n UrineOrdered By: Cornell Mcnair on 12-08-2021 Benzodiazepines Ql (U) Negative Negative [facility] Bilirubin Test strip Ql (U)O rdered By: Cornell Mcnair on 12-08-2021 Bilirubin Ql (U) Negative Negative [facility] Blood hemoglobin measurement (mass/volume)Ordered By: Cornell Mcnair on 12-08-2021 Hemoglobin (Bld) [Mass/Vol] 9.6 g/dL 11.8-15.4 [facility] Blood leukocytes automated c ount (number/volume)Ordered By: Cornell Mcnair on 12-08-2021 WBC (Bld) [#/Vol] 6.9 10*3/uL 4.5-11.0 [facility] Body fluid albumin measureme nt (mass/volume)Ordered By: Cornell Mcnair on 12-08-2021 Albumin (Body fld) [Mass/Vol] 3.4 g/dL 3.2-5.5 [facility] COVID-19 SOFIAOrdered By: Julia Mcnair on 12-08-2021 SARS-CoV+SARS-CoV-2 (COVID-19) Ag IA.rapid Ql (Resp) Negative Negative [facility] Comment on above: This is a duplicate [place] SARS Antigen (DIEUDONNE) result to be used for statistical tracking purpose only. Cannabinoids [Presence] in U rine by Screen methodOrdered By: Cornell Mcnair on 12-08-2021 Cannabinoids Screen Ql (U) Negative Negative [facility] Comment on above: These are unconfirme d [...] (Urine sed) None seen [LPF] None Seen [facility] Color Auto (U)Ordered By: Julia Mcnair on 12-08-2021 Color (U) Yellow Yellow [facility] Creatinine and Glomerular fi ltration rate.predicted panel (S/P/Bld)Ordered By: Cornell Mcnair on 12-08-2021 Creatinine [Mass/Vol] 0.78 mg/dL 0.44-1.03 [facility] Eosinophils Auto (Bld) [#/Vo l]Ordered By: Cornell Mcnair on 12-08-2021 Eosinophils (Bld) [#/Vol] 0.2 10*3/uL 0.0-0.45 [facility] Eosinophils/100 WBC Auto (Bl d)Ordered By: Cornell Mcnair on 12-08-2021 Eosinophils/100 WBC (Bld) 2.6 % . [facility] Erythrocyte distribution wid th Auto (RBC) [Ratio]Ordered By: Cornell Mcnair on 12-08-2021 Erythrocyte distribution width (RBC) [Ratio] 15.5 % 11.9-15.3 [facility] Estimated glomerular filtrat ion rate (GFR) non- AmericanOrdered By: Cornell Mcnair on 12-08-2021 GFR/1.73 sq M.predicted among non-blacks MDRD (S/P/Bld) [Vol rate/Area] > 60 mL/Min [facility] Globulin Calc (S) [Mass/Vol] Ordered By: Cornell Mcnair on 12-08-2021 Globulin (S) [Mass/Vol] 3.1 g/dL [facility] HCG ( test) IA.rapi d Ql (U)Ordered By: Cornell Mcnair on 12-08-2021 HCG ( test) Ql (U) Positive [facility] Hematocrit Auto (Bld) [Volum e fraction]Ordered By: Cornell Mcnair on 12-08-2021 Hematocrit (Bld) [Volume fraction] 30.1 % 34.0-46.4 [facility] Ketones Auto test strip (U) [Mass/Vol]Ordered By: Cornell Mcnair on 12-08-2021 Ketones (U) [Mass/Vol] Trace Negative [facility] - Drug toxicology Ordered By: Cornell Mcnair on 12-08-2021 Opiates Ql (U) Negative Negative [facility] Laboratory - Hematology and Cell countsOrdered By: Cornell Mcnair on 12-08-2021 Nucleated RBC/100 WBC (Bld) [Ratio] 0.0 % 0-0.5 [facility] Lymphocytes Auto (Bld) [#/Vo l]Ordered By: Cornell Mcnair on 12-08-2021 Lymphocytes (Bld) [#/Vol] 1.5 10*3/uL 1.00-4.8 [facility] Lymphocytes/100 WBC Auto (Bl d)Ordered By: Cornell Mcnair on 12-08-2021 Lymphocytes/100 WBC (Bld) 22.3 % . [facility] MCH Auto (RBC) [Entitic mass ]Ordered By: Cornell Mcnair on 12-08-2021 MCH (RBC) [Entitic mass] 26.3 pg 24.7-34.3 [facility] MCHC Auto (RBC) [Mass/Vol]Or dered By: Cornell Mcnair on 12-08-2021 MCHC (RBC) [Mass/Vol] 32.0 g/dL 32.0-35.0 [facility] MCV Auto (RBC) [Entitic vol] Ordered By: Cornell Mcnair on 12-08-2021 MCV (RBC) [Entitic vol] 82.4 fL 80-100 [facility] Monocytes Auto (Bld) [#/Vol] Ordered By: Cornell Mcnair on 12-08-2021 Monocytes (Bld) [#/Vol] 0.4 10*3/uL 0.0-0.8 [facility] Monocytes/100 WBC Auto (Bld) Ordered By: Cornell Mcnair on 12-08-2021 Monocytes/100 WBC (Bld) 6.5 % . [facility] Mucus LM Ql (Urine sed)Order ed By: Cornell Mcnair on 12-08-2021 Mucus Ql (Urine sed) 2+ [LPF] [facility] Neutrophils Auto (Bld) [#/Vo l]Ordered By: Cornell Mcnair on 12-08-2021 Neutrophils (Bld) [#/Vol] 4.7 10*3/uL 1.8-7.7 [facility] Neutrophils/100 WBC Auto (Bl d)Ordered By: Cornell Mcnair on 12-08-2021 Neutrophils/100 WBC (Bld) 68.0 % . [facility] Nitrite Test strip Ql (U)Ord ered By: Cornell Mcnair on 12-08-2021 Nitrite Ql (U) Negative Negative [facility] No Panel InformationOrdered By: Cornell Mcnair on 12-08-2021 Estimated GFR () > 60 mL/Min [facility] Comment on above: GFR estimated refere nce range: According to KDOQI guidelines, <60 ml/min/1.73m2 is sufficient to diagnose a patient with chronic kidney disease. Pharmacy Creatinine Clearance (Chem 115.38 [facility] SARS Antigen (LFIA) [facility] Phencyclidine Screen Ql (U)O rdered By: Cornell Mcnair on 12-08-2021 Phencyclidine Ql (U) Negative Negative [facility] Platelet mean volume Auto (B ld) [Entitic vol]Ordered By: Cornell Mcnair on 12-08-2021 Platelet mean volume (Bld) [Entitic vol] 7.2 fL 6.3-10.7 [facility] Platelets Auto (Bld) [#/Vol] Ordered By: Cornell Mcnair on 12-08-2021 Platelets (Bld) [#/Vol] 229 10*3/uL 150-450 [facility] Protein Auto test strip (U) [Mass/Vol]Ordered By: Cornell Mcnair on 12-08-2021 Protein (U) [Mass/Vol] Negative Negative [facility] Protein [Mass/volume] in Ser um or PlasmaOrdered By: Cornell Mcnair on 12-08-2021 Protein [Mass/Vol] 6.5 g/dL 6.1-7.9 [facility] RBC Auto (Bld) [#/Vol]Ordere d By: Cornell Mcnair on 12-08-2021 RBC (Bld) [#/Vol] 3.65 10*6/uL 3.60-5.[address] [facility] Serum or plasma alanine cox otransferase measurement without P-5'-P (enzymatic activiOrdered By: Cornell Mcnair on 12-08-2021 ALT No additional P-5'-P [Catalytic activity/Vol] 11 U/L 10-60 [facility] Serum or plasma albumin/glob ulin mass ratioOrdered By: Cornell Mcnair on 12-08-2021 Albumin/Globulin [Mass ratio] 1.1 {ratio} [facility] Serum or plasma alkaline sam sphatase measurement (enzymatic activity/volume)Ordered By: Cornell Mcnair on 12-08-2021 ALP [Catalytic activity/Vol] 64 U/L 32-92 [facility] Serum or plasma aspartate am inotransferase measurement (enzymatic activity/volume)Ordered By: Cornell Mcnair on 12-08-2021 AST [Catalytic activity/Vol] 22 U/L 10-42 [facility] Serum or plasma calcium katie urement (mass/volume)Ordered By: Cornell Mcnair on 12-08-2021 Calcium [Mass/Vol] 8.9 mg/dL 8.2-10.2 [facility] Serum or plasma chloride victorino surement (moles/volume)Ordered By: Cornell Mcnair on 12-08-2021 Chloride [Moles/Vol] 106 mmol/L 95-114 [facility] Serum or plasma ethanol katie urement (mass/volume)Ordered By: Cornell Mcnair on 12-08-2021 Ethanol [Mass/Vol] mg/dL [facility] Ethanol [Mass/Vol] TNP [facility] Comment on above: Test not performed Serum or plasma glucose katie urement (mass/volume)Ordered By: Cornell Mcnair on 12-08-2021 Glucose [Mass/Vol] 86 mg/dL 70-100 [facility] Comment on above: ADA recommended refe rence range Random Glucose Reference Range is dependent on time and content of last meal. Glucose of more than 200 mg/dL in a nonstressed, ambulatory subject supports the diagnosis of Diabetes Mellitus. Serum or plasma potassium me asurement (moles/volume)Ordered By: Cornell Mcnair on 12-08-2021 Potassium [Moles/Vol] 3.9 mmol/L 3.5-5.1 [facility] Serum or plasma sodium measu rement (moles/volume)Ordered By: Cornell Mcnair on 12-08-2021 Sodium [Moles/Vol] 137 mmol/L 136-146 [facility] Serum or plasma total biliru bin measurement (mass/volume)Ordered By: Cornell Mcnair on 12-08-2021 Bilirubin [Mass/Vol] 0.4 mg/dL 0.3-1.2 [facility] Serum or plasma total carbon dioxide measurement (moles/volume)Ordered By: Cornell Mcnair on 12-08-2021 CO2 [Moles/Vol] 23.8 mmol/L 22.0-30.0 [facility] Serum or plasma urea nitroge n measurement (mass/volume)Ordered By: Cornell Mcnair on 12-08-2021 Urea nitrogen [Mass/Vol] 9 mg/dL - [facility] Specific gravity Auto test s trip (U) [Rel density]Ordered By: Cornell Mcnair on 12-08-2021 Specific gravity (U) [Rel density] 1.024 1.001-1.030 [facility] Squamous epithelial cells de tection in urine sediment by light microscopyOrdered By: Cornell Mcnair on 12-08-2021 Epithelial cells.squamous LM Ql (Urine sed) 10-19 [HPF] 0-2 [facility] Urine bacteria detection by automated methodOrdered By: Cornell Mcnair on 12-08-2021 Bacteria Auto Ql (U) None seen None Seen [facility] Urine clarity by refractomet ry automatedOrdered By: Cornell Mcnair on 12-08-2021 Clarity Refractometry automated (U) Cloudy Clear [facility] Urine cocaine detectionOrder ed By: Cornell Mcnair on 12-08-2021 Cocaine Ql (U) Negative Negative [facility] Urine glucose measurement by automated test strip (mass/volume)Ordered By: Cornell Mcnair on 12-08-2021 Glucose Auto test strip (U) [Mass/Vol] Normal mg/dL Normal [facility] Urine hemoglobin detection b y automated test stripOrdered By: Cornell Mcnair on 12-08-2021 Hemoglobin Auto test strip Ql (U) Negative Negative [facility] Urine leukocyte esterase det ection by automated test stripOrdered By: Cornell Mcnair on 12-08-2021 Leukocyte esterase Auto test strip Ql (U) 3+ Negative [facility] Urobilinogen Auto test strip (U) [Mass/Vol]Ordered By: Cornell Mcnair on 12-08-2021 Urobilinogen (U) [Mass/Vol] Normal mg/dL Normal [facility] Yeast detection in urine sed iment by light microscopyOrdered By: Cornell Mcnair on 12-08-2021 Yeast LM Ql (Urine sed) 1+ [HPF] None Seen [facility] pH Auto test strip (U)Ordere d By: Cornell Mcnair on 12-08-2021 pH (U) 5.0 [pH] 5.0-9.0 [facility] CNPMaribell 09-18-2021 [place] Telephone ([facility]) ----- MARICARMEN ANDERSON ([id number]) 1980 F CHT Date Time Provider Department 09/18/21 CLEMENTE ENG During your visit today, we recorded the following information about you: Uyen Dela Cruz 09/18/2021 9:54 AM Signed patient calling in with complaint of abdominal pain, swelling abdomen, dehydration and vomiting. Patient has not seen you since October 2020. Patient has been identified by name and birthdate.Yes Duration of symptoms: few days Person calling: self Call patient at: at home [phone] (home) [phone] (cell) Was an appointment scheduled: No Closing statement: Symptom Call: Thank you for calling [facility], your call is very important. A nurse will call in approximately 2-4 hours during business hours. If this is an emergency, please contact 911. Uyen Dela Cruz Kathi Waterman RN 09/18/2021 11:16 AM Signed Called [...] She states she will go to a [facility] ER because local ER doesn't know what [...] by KATHI WATERMAN RN on 09/18/21 Normal [facility] MRI CERVICAL SPINE WO IVCONo n [...] vertebrae with counting from the craniocervical junction. Acting Instructor: [employer] Transcribe Date/Time: Nov 13 2020 2:41P Dictated by : KURT MALIN MD This examination was interpreted and the report reviewed and electronically signed by: DHRUV KINGSLEY MD on Nov 13 2020 3:33PM EST [id number] Normal [facility] MRI KIDNEY WO/W IVCONon 05-2 MRI KIDNEY WO/W IVCON * * *Final [...] included: axial precontrast T1 weighted in- and nxf-mo-cvffj, axial and coronal HASTE, axial DWI with [...] NO SUSPICIOUS OR ENHANCING RENAL LESIONS OTHERWISE. Acting Instructor: [facility] Transcribe Date/Time: Nov 13 2020 3:28P Dictated by : CHAO RODRIGUEZ MD This examination was interpreted and the report reviewed and electronically signed by: NACHO BARONE DO on Nov 13 2020 7:26PM EST [id number] Normal [facility] XR CHEST 2V FRONTAL/LATon XR CHEST [...] disease identified in the lungs or mediastinum. Acting Instructor: [facility] Transcribe Date/Time: Nov 13 2020 3:36P Dictated by : DESI MAHONEY MD This examination was interpreted and the report reviewed and electronically signed by: DESI MAHONEY MD on Nov 13 2020 3:38PM EST [id number] Normal [facility] Basic Metabolic Panlon 11-12 Anion gap [Moles/Vol] 9 mmol/L Normal 0-15 [facility] Calcium [Mass/Vol] 8.9 mg/dL Normal 8.5-10.2 [facility] Chloride [Moles/Vol] 112 mmol/L High 97-105 [facility] CO2 [Moles/Vol] 19 mmol/L Low 22-30 [facility] Creatinine [Mass/Vol] 0.73 mg/dL Normal 0.58-0.96 [facility] eGFR- Amer. >60 Normal [facility] eGFR-All Other Races >60 Normal [facility] Comment on above: Result Comment: eGFR (Estimated [...] GFR. Glucose [Mass/Vol] 89 mg/dL Normal 74-99 [facility] Potassium [Moles/Vol] 3.7 mmol/L Normal 3.7-5.1 [facility] Sodium [Moles/Vol] 140 mmol/L Normal 136-144 [facility] Urea nitrogen [Mass/Vol] 21 mg/dL Normal 7-21 [facility] Blood Cultureon 11-12-2020 Bacteria identified Cx Nom (Bld) Culture Result - No growth 5 days Normal [facility] Comment on above: Performed By: #### B LCUL ####[facility] [address] [place], [place] [phone] Bacteria identified Cx Nom (Bld) Sp. Request/Comment: - 42.85CC Culture Result - No growth 5 days Normal [facility] Comment on above: Performed By: #### B LCUL ####[facility] [address] [place], [place] [phone] CBCon 11-12-2020 Absolute nRBC <0.01 Normal <0.01 [facility] Erythrocyte distribution width (RBC) [Ratio] 16.8 % High 11.5-15.0 [facility] Hematocrit (Bld) [Volume fraction] 28.9 % Low 36.0-46.0 [facility] Hemoglobin (Bld) [Mass/Vol] 8.5 g/dL Low 11.5-15.5 [facility] MCH 26.6 pG Normal 26.0-34.0 [facility] MCHC (RBC) [Mass/Vol] 29.4 g/dL Low 30.5-36.0 [facility] MCV (RBC) [Entitic vol] 90.6 fL Normal 80.0-100.0 [facility] Platelet mean volume (Bld) [Entitic vol] 11.6 fL Normal 9.0-12.7 [facility] Platelets (Bld) [#/Vol] 167 10*3/uL Normal 150-400 [facility] RBC (Bld) [#/Vol] 3.19 10*6/uL Low 3.90-5.20 [facility] WBC (Bld) [#/Vol] 3.88 10*3/uL Normal 3.70-11.00 [facility] CNDSon 11-12-2020 CNDS HNO ID: [id number] Author: Lucero Wheeler DO Service: General Surgery [...] fevers. 40 year old female presented to [facility] on 11/09/2020 with fevers and left [...] needed for Nausea/Vo (more content not included)... [facility] CONSULT PROGon 11-12-2020 CONSULT PROG HNO ID: [id number] Author: Awais Gonzalez MD Service: Infectious Disease [...] 11/09/20 Right Chest 3 days SIGNATURE: Awais Gnozalez MD [facility] NURSING PROGon 11-12-2020 NURSING PROG HNO ID: [id number] Author: Wisam Carvajal RN Service: ? Author Type: Registered Nurse Type: Nursing Progress Note Filed: 11/12/2020 6:21 PM Note Text: Nursing Progress Note Patient Name: Maricarmen Anderson Patient Location: [facility]/ [place]-1 Daily Note: 09: Assessment complete, patient denies nausea, heat pad given for pain, will continue to monitor 1750: blood cultures collected and sent to lab 1820: Discharge instructions given This note was completed by: Wisam Carvajal [facility] SHAMEKA Panel 1on 11-11-2020 SHAMEKA by EIA 0.8 OD Ratio [facility] Comment on above: Result Comment: OD R atio is interpreted as follows: Negative <1.0 Positive >=1.0 Performed By: #### P REALB, TRANSF #### [facility] [address] [address] SHAMEKA by EIA, Qual Negative Normal Negative [facility] Comment on above: Performed By: #### P REALB, TRANSF #### [facility] [address] [address] Basic Metabolic Panlon 11-11 Anion gap [Moles/Vol] 9 mmol/L Normal 0-15 [facility] Calcium [Mass/Vol] 9.2 mg/dL Normal 8.5-10.2 [facility] Chloride [Moles/Vol] 115 mmol/L High 97-105 [facility] CO2 [Moles/Vol] 19 mmol/L Low 22-30 [facility] Creatinine [Mass/Vol] 0.78 mg/dL Normal 0.58-0.96 [facility] eGFR- Amer. >60 Normal [facility] eGFR-All Other Races >60 Normal [facility] Comment on above: Result Comment: eGFR (Estimated [...] GFR. Glucose [Mass/Vol] 89 mg/dL Normal 74-99 [facility] Potassium [Moles/Vol] 3.8 mmol/L Normal 3.7-5.1 [facility] Sodium [Moles/Vol] 143 mmol/L Normal 136-144 [facility] Urea nitrogen [Mass/Vol] 20 mg/dL Normal 7-21 [facility] Blood Cultureon 11-11-2020 Bacteria identified Cx Nom (Bld) Culture Result - No growth 5 days Normal [facility] Comment on above: Performed By: #### B LCUL ####[facility] [address] [place], [place] [phone] C-Reactive Proteinon 021 CRP [Mass/Vol] mg/L Normal 0.1-0.89 [facility] Comment on above: Performed By: #### P REALB, TRANSF #### [facility] [address], [place] [address] C3 Complementon 11-11-2020 C3 Complement 122 mg/dL Normal 86-166 [facility] Comment on above: Performed By: #### P REALB, TRANSF #### [facility] [address], [place] [address] C4 Complementon 11-11-2020 C4 Complement 26 mg/dL Normal 13-46 [facility] Comment on above: Performed By: #### P REALB, TRANSF #### [facility] [address], [place] [address] CBCon 11-11-2020 Absolute nRBC <0.01 Normal <0.01 [facility] Erythrocyte distribution width (RBC) [Ratio] 16.6 % High 11.5-15.0 [facility] Hematocrit (Bld) [Volume fraction] 30.0 % Low 36.0-46.0 [facility] Hemoglobin (Bld) [Mass/Vol] 8.9 g/dL Low 11.5-15.5 [facility] MCH 26.5 pG Normal 26.0-34.0 [facility] MCHC (RBC) [Mass/Vol] 29.7 g/dL Low 30.5-36.0 [facility] MCV (RBC) [Entitic vol] 89.3 fL Normal 80.0-100.0 [facility] Platelet mean volume (Bld) [Entitic vol] 11.5 fL Normal 9.0-12.7 [facility] Platelets (Bld) [#/Vol] 155 10*3/uL Normal 150-400 [facility] RBC (Bld) [#/Vol] 3.36 10*6/uL Low 3.90-5.20 [facility] WBC (Bld) [#/Vol] 4.41 10*3/uL Normal 3.70-11.00 [facility] CONSULTon 11-11-2020 CONSULT HNO ID: [id number] Author: Christopher Gonzalez V, MD Service: Infectious [...] Obesity, Class III, BMI 40-49.9 (morbid obesity) ([facility]) - Port-A-Cath in place patients right upper [...] tenderness PSYCH: No (more content not included)... Normal [facility] NURSING PROGon 11-11-2020 NURSING PROG HNO ID: [id number] Author: Anne-Marie Farley RN Service: Nursing Author Type: Registered Nurse Type: Nursing Progress Note Filed: 11/11/2020 9:50 PM Note Text: Nursing Progress Note Patient Name: Maricarmen Anderson Patient Location: [place]/ MS Daily Note: 1945 received report, assumed pt care. According to medical team it is ok to use medport. 2147 Pt actively throwing up. Holding medications to be given when patient can swallow. 2147 Resident paged. This note was completed by: Anne-Marie Farley [facility] NURSING PROG HNO ID: [id number] Author: Carolina Lowry RN Service: ? Author Type: Registered Nurse Type: Nursing Progress Note Filed: 11/11/2020 7:46 PM Note Text: Nursing Progress Note Patient Name: Maricarmen Anderson Patient Location: MS/ MS Daily Note:Nursing assessment completed see NPR. No signs of distress. 1600 Spoke with the surgery doctor, ok to continue using medport. This note was completed by: Carolina Lowry [facility] ALLIED HEALTHon 11-10-2020 ALLIED HEALTH HNO ID: [id number] Author: RT Mary(Alex) Service: Radiology Author Type: Geospatial Engineer Type: Allied Health Filed: 11/09/2020 11:44 PM [...] PERIPHERAL IV DATA: Not applicable SIGNED BY: Erin Neri RT(R) November 09, 2020 11:44 PM Normal [facility] Basic Metabolic Panlon 11-10 Anion gap [Moles/Vol] 9 mmol/L Normal 0-15 [facility] Calcium [Mass/Vol] 8.9 mg/dL Normal 8.5-10.2 [facility] Chloride [Moles/Vol] 114 mmol/L High 97-105 [facility] CO2 [Moles/Vol] 20 mmol/L Low 22-30 [facility] Creatinine [Mass/Vol] 0.83 mg/dL Normal 0.58-0.96 [facility] eGFR- Amer. >60 Normal [facility] eGFR-All Other Races >60 Normal [facility] Comment on above: Result Comment: eGFR (Estimated [...] GFR. Glucose [Mass/Vol] 93 mg/dL Normal 74-99 [facility] Potassium [Moles/Vol] 3.9 mmol/L Normal 3.7-5.1 [facility] Sodium [Moles/Vol] 143 mmol/L Normal 136-144 [facility] Urea nitrogen [Mass/Vol] 16 mg/dL Normal 7-21 [facility] CASE MGT INIT ASSESon 2020 CASE MGT INYANIQUE PATEL HNO ID: [id number] Author: Estela Avila RN Service: ? 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 Last discharge within 30 days: No Advance Directive: Current Advance Directive: None Care Transition Coordinator Attempted to Assist with AD Completion: Yes [...] None Has the Patient Been in a Residential Facility in the Past 30 days?: No SOCIAL: Living Arrangements: Home Lives With: Son Financial Resources: Disabled Primary Contact: Extended Emergency Contact Information Primary Emergency Contact: Khalida Anaya Mobile Relation: Sister Secondary Emergency Contact: Lucero Chaves Mobile Relation: Mother Supportive Patient Contact:: Yes Contact Resources: Family Family Name/Phone: Sister Khalida Anaya/[phone] Caregiver AssessmentCaregiver is ready, willing and able [...] Completely I feel financially burdened by my [id number] expenses for my prescription medication:: 0 - Disagree Completely Risk Score: 0 Patient is categorized as: Low risk < 2 Are you interested in bedside delivery of your medications? No Is Patient Psychosocially Complex?: No ASSESSMENT AND PLAN: Medical Needs: Medical Needs: Two or more chronic diseases Psychosocial Needs: Psychosocial Needs: None FREEDOM OF CHOICE EXPLAINED: [place] of Choice Given: No Reason Not Given: [...] 10, 2020 TIME: 9:45 AM PAGER/CONTACT #: [phone] Normal [facility] CBCon 11-10-2020 Absolute nRBC <0.01 Normal <0.01 [facility] Erythrocyte distribution width (RBC) [Ratio] 16.6 % High 11.5-15.0 [facility] Hematocrit (Bld) [Volume fraction] 29.0 % Low 36.0-46.0 [facility] Hemoglobin (Bld) [Mass/Vol] 8.6 g/dL Low 11.5-15.5 [facility] MCH 26.5 pG Normal 26.0-34.0 [facility] MCHC (RBC) [Mass/Vol] 29.7 g/dL Low 30.5-36.0 [facility] MCV (RBC) [Entitic vol] 89.2 fL Normal 80.0-100.0 [facility] Platelet mean volume (Bld) [Entitic vol] 11.2 fL Normal 9.0-12.7 [facility] Platelets (Bld) [#/Vol] 165 10*3/uL Normal 150-400 [facility] RBC (Bld) [#/Vol] 3.25 10*6/uL Low 3.90-5.20 [facility] WBC (Bld) [#/Vol] 4.26 10*3/uL Normal 3.70-11.00 [facility] NURSING PROGon 11-10-2020 NURSING PROG HNO ID: [id number] Author: Carolina Lowry RN Service: ? Author Type: Registered Nurse Type: Nursing Progress Note Filed: 11/10/2020 9:53 AM Note Text: Nursing Progress Note Patient Name: Maricarmen Anderson Patient Location: [place]/ MS- Daily Note:Nursing assessment completed see NPR. No signs of distress. This note was completed by: Carolina Lowry [facility] NUTRITIONon 11-10-2020 NUTRITION HNO ID: [id number] Author: Luz Watson RD Service: Nutrition Therapy [...] Weight loss;Patient/family self-report;Nausea;Vomiti ng Estimated kilocalorie needs: 3225-7406 kcal/day Calorie Calculation Method: 15-20 kcals/kg Estimated protein needs (grams): 76-100 gm protein/day Grams protein determined by: 1.3 - 1.7 g/kg;[place] body weight Care Plan: Continue current diet [...] protein shake. She ate 1 serving of ukrainian toast this morning and had emesis following. [...] 2 Frequency 5. DINNER Supplement 3 LORAINE [employer] 1.0 VANILLA Supplement 3 Frequency 3. LUNCH 11/10/20 1240 11/09/20 1415 DIET GASTRO INTESTINAL START [...] SIGNATURE: Luz Watson RD PATIENT NAME: Maricarmen Murrieta Justin DATE: November 10, 2020 TIME: 12:50 PM PAGER: [phone] Normal [facility] Urinalysis with Microscopico n 11-10-2020 Bacteria 3+ /HPF Critically abnormal Negative [facility] Bilirubin, Urine Negative Normal Negative [facility] Cast SEE COMMENT Normal 0 [facility] Comment on above: Result Comment: 0 Clarity (U) Clear Normal Clear [facility] Color (U) Yellow Normal Yellow [facility] Crystals LM Nom (Urine sed) SEE COMMENT Critically abnormal Negative [facility] Comment on above: Result Comment: 2+ Calcium Oxalate Epithelial cells LM Ql (Urine sed) SEE COMMENT Critically abnormal Occasional [facility] Comment on above: Result Comment: 1+ Squamous Epithelial Cells Glucose Ql (U) Negative Normal Negative [facility] Hemoglobin/Blood,Ur Negative Normal Negative [facility] Ketones Ql (U) Trace Critically abnormal Negative [facility] Leukest 1+ Critically abnormal Negative [facility] Mucus Ql (Urine sed) 1+ Normal [facility] Nitrite Ql (U) Negative Normal Negative [facility] pH (U) 6.5 [pH] Normal 5.0-8.0 [facility] Protein, Urine Trace Critically abnormal Negative [facility] RBC 3-5 Critically abnormal 0-3 [facility] Specific [place], Ur 1.025 Normal 1.005-1.030 [facility] Urobilinogen Qn (U) 1.0 {José'U}/dL Normal 0.2-1.0 [facility] WBC 26-50 Critically abnormal 0-5 [facility] XR LUMBAR 2V AP/LATon 2020 XR LUMBAR [...] 2V AP/LAT HISTORY: mid back pain (accession [id number]), back pain (accession [id number]) Mid-back/T-spine pain, initial exam. TECHNIQUE: XR THORACIC [...] on Nov 10 2020 7:09AM EST [id number] [facility] XR THORACIC 2V AP/LATon 10-21 XR THORACIC 2V AP/LAT * * *Final Report* * * DATE OF EXAM: Nov 09 2020 11:44PM SPX 5262 - XR THORACIC 2V AP/LAT / PROCEDURE REASON: Mid-back/T-spine pain, initial exam * * * * Physician Interpretation * * * * RESULT: EXAMINATION: XR THORACIC 2V AP/LAT, XR LUMBAR 2V AP/LAT HISTORY: mid back pain (accession [id number]), back pain (accession [id number]) Mid-back/T-spine pain, initial exam. TECHNIQUE: XR THORACIC [...] on Nov 10 2020 7:09AM EST [id number] [facility] HNO ID: [id number] Author: Uzair Monroy Service: Radiology Author Type: Geospatial Engineer Type: Allied Health Filed: 11/09/2020 7:56 AM [...] Uzair Monroy November 09, 2020 7:55 AM [facility] HNO ID: [id number] Author: Uzair Monroy Service: Radiology Author Type: Geospatial Engineer Type: [facility] Filed: 11/09/2020 7:51 AM Note Text: Radiology [...] Uzair Monroy November 09, 2020 7:51 AM Normal [facility] Blood Cultureon 11-09-2020 Bacteria identified Cx Nom (Bld) Culture Result - No growth 5 days Normal [facility] Comment on above: Performed By: #### B LCUL ####[facility] [place], [place] [phone] Bacteria identified Cx Nom (Bld) Additional Testing [...] and read back by: Nika Gore RN [facility] --> ABNORMAL ALERT [address] Surg 11/11/20 Brennan2 Chuckie Sharpe --> ABNORMAL [...] to and read back by: BRANDIE QUINN [facility] --> ABNORMAL ALERT 11/11/20 at 0523 to M[facility] --> ABNORMAL ALERT --> ABNORMAL ALERT Critically abnormal [facility] Comment on above: Performed By: #### B LCUL ####[facility] [address] [place], [place] [phone] CBC and Differentialon 11-09 Abs Baso <0.03 Normal <0.11 [facility] Abs [place] 0.29 k/uL Normal <0.87 [facility] Abs Neut 3.25 k/uL Normal 1.45-7.50 [facility] Absolute nRBC <0.01 Normal <0.01 [facility] Basophils/100 WBC (Bld) 0.4 % Normal [facility] DTYPE Auto Diff Normal [facility] Eosinophils (Bld) [#/Vol] 0.04 10*3/uL Normal <0.46 [facility] Eosinophils/100 WBC (Bld) 0.8 % Normal [facility] Erythrocyte distribution width (RBC) [Ratio] 16.3 % High 11.5-15.0 [facility] Hematocrit (Bld) [Volume fraction] 31.9 % Low 36.0-46.0 [facility] Hemoglobin (Bld) [Mass/Vol] 9.6 g/dL Low 11.5-15.5 [facility] Lymphocytes (Bld) [#/Vol] 1.33 10*3/uL Normal 1.00-4.00 [facility] Lymphocytes/100 WBC (Bld) 26.9 % Normal [facility] MCH 26.0 pG Normal 26.0-34.0 [facility] MCHC (RBC) [Mass/Vol] 30.1 g/dL Low 30.5-36.0 [facility] MCV (RBC) [Entitic vol] 86.4 fL Normal 80.0-100.0 [facility] Monocytes/100 WBC (Bld) 5.9 % Normal [facility] Neutrophils/100 WBC (Bld) 66.0 % Normal [facility] NRBCs 0.0 /100 WBC Normal 0 [facility] Platelet mean volume (Bld) [Entitic vol] 11.0 fL Normal 9.0-12.7 [facility] Platelets (Bld) [#/Vol] 173 10*3/uL Normal 150-400 [facility] RBC (Bld) [#/Vol] 3.69 10*6/uL Low 3.90-5.20 [facility] WBC (Bld) [#/Vol] 4.95 10*3/uL Normal 3.70-11.00 [facility] CTA ABD/PELV W IVCONon 11-09 CTA ABD/PELV W IVCON * * *Final Report* * * DATE OF EXAM: Nov 09 2020 10:53AM [facility] 0311 - CTA ABD/PELV W IVCON / [...] on Nov 09 2020 10:53AM EST [id number] [facility] CTA CHEST (NONGATED) W IVCON on 11-09-2020 CTA CHEST (NONGATED) W IVCON * * *Final Report* * * DATE OF EXAM: Nov 09 2020 10:53AM [facility] 0123 - CTA CHEST (NONGATED) W IVCON [...] Nov 09 2020 10:53AM EST [id number] Normal [facility] Comp Metabolic Panelon 11-09 Albumin [Mass/Vol] 3.9 g/dL Normal 3.5-5.0 [facility] ALP [Catalytic activity/Vol] 56 U/L Normal 34-123 [facility] ALT [Catalytic activity/Vol] 9 U/L Normal 7-38 [facility] Anion gap [Moles/Vol] 9 mmol/L Normal 0-15 [facility] AST [Catalytic activity/Vol] 16 U/L Normal 13-35 [facility] Bilirubin [Mass/Vol] 0.5 mg/dL Normal 0.2-1.3 [facility] Calcium [Mass/Vol] 9.4 mg/dL Normal 8.5-10.2 [facility] Chloride [Moles/Vol] 110 mmol/L High 97-105 [facility] CO2 [Moles/Vol] 21 mmol/L Low 22-30 [facility] Creatinine [Mass/Vol] 0.75 mg/dL Normal 0.58-0.96 [facility] eGFR- Amer. >60 Normal [facility] eGFR-All Other Races >60 Normal [facility] Comment on above: Result Comment: eGFR (Estimated [...] GFR. Glucose [Mass/Vol] 91 mg/dL Normal 74-99 [facility] Potassium [Moles/Vol] 3.6 mmol/L Low 3.7-5.1 [facility] Protein [Mass/Vol] 6.6 g/dL Normal 6.3-8.0 [facility] Sodium [Moles/Vol] 140 mmol/L Normal 136-144 [facility] Urea nitrogen [Mass/Vol] 17 mg/dL Normal 7-21 [facility] D dimeron 11-09-2020 D dimer 770 ng/mL FEU High <500 [facility] Comment on above: Result Comment: 500 ng/mL [...] M, et al. MAE 2014 311:1117 and Irving Sprague N et al. Kellen Int Med 2016 165:253. ED NOTEon 11-09-2020 ED NOTE HNO ID: [id number] Author: Yaya Singletary RN Service: ? Author Type: Registered Nurse Type: ED Notes Filed: 11/09/2020 1:34 PM Note Text: Report called to Abbey RN. All questions addressed. Vitals updated. Family at bedside. Pt NAD at this time. This RN at bedside to transport pt. Floor nurse aware of blood cultures and covid in process. [facility] ED NOTE HNO ID: [id number] Author: Yaya Singletary RN Service: ? Author Type: Registered Nurse Type: ED Notes Filed: 11/09/2020 7:44 AM Note Text: Portable CXR at bedside. [facility] ED NOTE HNO ID: [id number] Author: Yaya Singletary RN Service: ? Author Type: Registered Nurse Type: ED Notes Filed: 11/09/2020 7:18 AM Note Text: Assumed care of patient from Traci DIEGO. Pt in room standing up at bedside with emesis bag. NAD or active vomiting at this time. Joy PAULSON in room to talk with patient. [facility] ED NOTE HNO ID: [id number] Author: Connie Vazquez RN Service: ? Author [...] was told her gastroparesis was the diagnosis [facility] ED PROV NOTEon 11-09-2020 ED PROV NOTE HNO ID: [id number] Author: Mckenna Moreno DO Service: Emergency Medicine [...] she was admitted to a hospital in [place] for 3 days from Thursday to Thursday [...] venous embolism and thrombosis of brachial vein ([facility]) 2013 due to IV infiltrate, 2013, also on OCPs - Eosinophilic esophagitis - Gastroparesis - GERD (gastroesophageal reflux disease) - History of gastric bypass complications - Obesity, Class III, BMI 40-49.9 (morbid obesity) ([facility]) - Port-A-Cath in place patients right upper [...] is w (more content not included)... Normal [facility] HISTORY PHYSICALon HISTORY PHYSICAL HNO ID: [id number] Author: Ashley Loo MD Service: General Surgery [...] on analysis and urine culture was sent. SREEKANTH short pending, blood cultures drawn and pending. PAST MEDICAL HISTORY: PAST MEDICAL HISTORY Diagnosis Date - Acute venous embolism and thrombosis of brachial vein (HCC) 2013 due to IV infiltrate, 2013, also on OCPs - Eosinophilic esophagitis - Gastroparesis - GERD (gastroesophageal reflux disease) - History of gastric bypass complications - Obesity, Class III, BMI 40-49.9 (morbid obesity) ([facility]) - Port-A-Cath in place patients right upper [...] Allergen Reactions (more content not included)... Normal [facility] High Sens Troponin Ton 11-09 High Sensitivity SALLY 6 ng/L Normal <12 [facility] Comment on above: Result Comment: When assessing [...] High Sensitivity SALLY 6 ng/L Normal <12 [facility] Comment on above: Result Comment: When assessing [...] CRISTINA+probe Ql (Unsp spec) Nasopharyngeal Swab Normal [facility] Comment on above: Performed By: #### I TCOVD ####[facility] [address] [place], [place] [phone] SARS-CoV-2 (COVID-19) RNA CRISTINA+probe Ql (Unsp spec) Negative for COVID19 (SARS CoV2) by RT-PCR or equivalent method. Normal Negative for COVID19 (SARS CoV2) by RT-PCR or equivalent method. [facility] Comment on above: Result Comment: This test was developed and its performance characteristics determined by [facility] [place]. This test has been authorized by FDA under an Emergency Use Authorization (EUA). This test has been validated in accordance with the FDA's Guidance Document Policy for Diagnostics Testing in Laboratories Certified to Perform High Complexity Testing under CLIA prior to Emergency use Authorization for Coronavirus Disease 2019 during the Public Health Emergency issued on August 20, 2019. Test performed by [facility], [facility] [place], [address], [place] [address]. Performed By: #### I TCOVD ####[facility] [place], [place] [phone] Lipaseon 11-09-2020 Lipase [Catalytic activity/Vol] 21 U/L Normal 16-61 [facility] NURSING PROGon 11-09-2020 NURSING PROG HNO ID: [id number] Author: Saskia Cm RN Service: ? Author Type: Registered Nurse Type: Nursing Progress Note Filed: 11/10/2020 6:04 AM Note Text: Nursing Progress Note Patient Name: Maricarmen Anderson [facility] [address] [address] Daily Note: Received report from BRANDIE Joel. 2019: Assessment completed, patient states feeling better than she did earlier today. Safety maintained, will continue to monitor. 2215: Observed patient asleep. 0005: Patient back up to floor from radiology. 0200: Observed patient asleep. 0309: Blood work collected. 0500: Observed patient asleep. 0603: Patient rates pain 8/10; paged resident. This note was completed by: Saskia Cm [facility] NURSING PROG HNO ID: [id number] Author: Wisam Carvajal RN Service: ? Author Type: Registered Nurse Type: Nursing Progress Note Filed: 11/09/2020 7:00 PM Note Text: Nursing Progress Note Patient Name: Maricarmen Anderson [facility] Daily Note: 1454: assessment complete, patient complains of severe left flank pain and nausea, will continue to monitor 1845: Blood cultures collected and sent to lab This note was completed by: Wisam Carvajal [facility] NURSING PROG HNO ID: [id number] Author: Wisam Carvajal RN Service: ? Author Type: Registered Nurse Type: Nursing Progress Note Filed: 11/09/2020 5:16 PM Note Text: Nursing Progress Note Patient Name: Maricarmen Anderson [facility] Transfer Note: Patient transferred into room/unit 931 in stable condition. Actions taken: No futher actions taken at this time. Will continue to monitor and check with patient. This note was completed by: Wisam Carvajal [facility] Urinalysis with Microscopico n 11-09-2020 Bacteria 3+ /HPF Critically abnormal Negative [facility] Bilirubin, Urine Negative Normal Negative [facility] Cast SEE COMMENT Normal 0 [facility] Comment on above: Result Comment: 0 Clarity (U) Slightly Cloudy Critically abnormal Clear [facility] Color (U) Yellow Normal Yellow [facility] Epithelial cells LM Ql (Urine sed) SEE COMMENT Critically abnormal Occasional [facility] Comment on above: Result Comment: 2+ Squamous Epithelial Cells Glucose Ql (U) Negative Normal Negative [facility] Hemoglobin/Blood,Ur Negative Normal Negative [facility] Ketones Ql (U) Negative Normal Negative [facility] Leukest 1+ Critically abnormal Negative [facility] Nitrite Ql (U) Negative Normal Negative [facility] pH (U) 6.5 [pH] Normal 5.0-8.0 [facility] Protein, Urine Trace Critically abnormal Negative [facility] RBC 0-3 Normal 0-3 [facility] Specific [place], Ur >=1.030 Normal 1.005-1.030 [facility] Urobilinogen Qn (U) 2.0 {José'U}/dL High 0.2-1.0 [facility] WBC 6-10 Critically abnormal 0-5 [facility] Urine Cultureon 11-09-2020 Bacteria identified Cx Nom [...] Result - <10,000 CFU/ml Normal urogenital yogesh Normal [facility] Comment on above: Performed By: #### U RCUL ####[facility] [place], [place] [phone] XR CHEST 1V FRONTAL PORTon 0 11-09-2020 [...] on Nov 09 2020 7:59AM EST [id number] [facility] 11-08-2020 CNP Telephone (GENSSP) ----- MARICARMEN ANDERSON ([id number]) 1980 F CHT Date Time Provider Department 11/08/20 CLEMENTE ENG During your visit today, we recorded the following information about you: BYRON Richter 11/08/2020 9:29 AM Signed Called PCP office (Dr Viktor Sotelo) [phone] Dr is out of the office this week. Asked if Nurse could fax copies of recent lab work, imaging that may have been done while patient was recently hospitalized last week. BYRON Richter CT 11/09/2020 8:17 AM Signed Outside records received and scanned to [facility] Forwarded to Dr Eng. BYRON Richter Allergies [...] Encounter Status:Closed by NICOLETTE SANCHEZ on 11/09/20 [facility] Raman 11-05-2020 GUILLE Telephone ([employer]) ----- JUSTINJUAN PABLOMARICARMEN M ([id number]) 1980 F T Date Time Provider Department 11/05/20 CLEMENTE ENG During your visit today, we recorded the following information about you: Nicolette Sanchez, CT 11/05/2020 9:58 AM Signed Patient called. She [...] needs one. She doesn't want the [place]. Nicolette Sanchez, CT Allergies As of Date: 11/05/2020 Noted Allergy Reaction DILAUDID (HYDROMORPHONE (BULK)) 03/28/2019 9 - Itching Date Reviewed: 09/29/2020 Reviewed by: Anne-Marie (Rn) BRANDIE Farley - Fully Assessed Reason for Visit: Patient Question [3657] Prescriptions as of 11/05/2020 Sig: LORAZEPAM 0.5 [...] Status:Closed by CARLOS ALBERTO SIMMONS on 11/07/20 [facility] ----- [facility] ([id number]) 1980 [facility] Provider Department 10/30/20 [facility]DWIN [facility] During your visit today, we recorded the following information about you: Urmila Hein Adm 2020 8:29 AM Signed Order Request Caller : Maricarmen Contact Order Being Requested : MRI Cervical Spine Orders need to be placed in [facility] Laith Donaldson RN 2020 12:42 PM Signed [...] 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 We will close this out of the actionable findings registry. Actionable Findings follow up status: Complete Doug Duncan PA-C October 22, 2020 12:28 PM Allergies As of Date: 10/22/2020 Noted Allergy Reaction DILAUDID (HYDROMORPHONE (BULK)) 03/28/2019 9 - Itching Date Reviewed: 09/29/2020 Reviewed by: Anne-Marie (Rn) BRANDIE Farley - Fully Assessed Reason for Visit: Radio Imaging Study Comments [2476] Prescriptions as of 10/22/2020 Sig: IV CONTRAST [...] Encounter Status:Closed by CLEMENTE ENG on [facility]/22/20 [facility] [place] Tele[facility] ([employer]) ----- PAIGEMARICARMEN Johnson ([id number]) 1980 F [facility] Date Time Provider Department 10/08/20 CLEMENTE ENG During your visit today, we recorded the following information about you: BYRON Richter, CT 10/08/2020 8:20 AM Signed Patient states [...] patient [facility] ER at [facility] if she is dehydrated and a new [...] and take in whatever she can orally. BYRON Richter Allergies As of Date: 10/08/2020 Noted Allergy Reaction DILAUDID (HYDROMORPHONE (BULK)) 03/28/2019 9 - Itching Date Reviewed: 09/29/2020 Reviewed by: Anne-Marie (Rn) BRANDIE Farley - Fully Assessed Reason for Visit: Patient Question [4449] Prescriptions as of 10/08/2020 Sig: ACETAZOLAMIDE 250 [...] 05/25/2020 Encounter Status:Closed by NICOLETTE KING on 10/09/20 Normal [facility] Basic Metabolic Panlon 09-29 Anion gap [Moles/Vol] 10 mmol/L Normal 0-15 [facility] Comment on above: Performed By: #### P REALB ####[facility] [address] [place], [place] [phone] Calcium [Mass/Vol] 9.4 mg/dL Normal 8.5-10.2 [facility] Comment on above: Performed By: #### P REALB ####[facility] [address] [place], [place] [phone] Chloride [Moles/Vol] 110 mmol/L High 97-105 [facility] Comment on above: Performed By: #### P REALB ####[address] [phone] CO2 [Moles/Vol] 20 mmol/L Low 22-30 [facility] Comment on above: Performed By: #### P REALB ####[place] [address] [place], [place] [phone] Creatinine [Mass/Vol] 0.75 mg/dL Normal 0.58-0.96 [facility] Comment on above: Performed By: #### P REALB ####[address] [phone] eGFR- Amer. >60 Normal [facility] Comment on above: Performed By: #### P REALB ####[address] [phone] eGFR-All Other Races >60 Normal [facility] Comment on above: Result Comment: eGFR (Estimated [...] actual GFR. Performed By: #### P REALB ####[address] [phone] Glucose [Mass/Vol] 108 mg/dL High 74-99 [facility] Comment on above: Performed By: #### P REALB ####[place] [phone] Potassium [Moles/Vol] 3.6 mmol/L Low 3.7-5.1 [facility] Comment on above: Performed By: #### P REALB ####[facility] [address] [place], [place] [phone] Sodium [Moles/Vol] 140 mmol/L Normal 136-144 [facility] Comment on above: Performed By: #### P REALB ####[facility] [address] [place], [place] [phone] Urea nitrogen [Mass/Vol] 12 mg/dL Normal 7-21 [facility] Comment on above: Performed By: #### P REALB ####[facility] [place], [place] [phone] CASE MANAGEMon 09-29-2020 CASE MANAGEM HNO ID: [id number] Author: Wiliam Santamaria Service: Case Management Author [...] the process utilized to ensure compliance with [facility] policy regarding Inpatient Admission and Observation Services. [...] physician's order as documented evidence of concurrence. [facility] CASE MGT INIT Cory 2020 CASE MGT INIT JORGE HNO ID: [id number] Author: Anaid (Rn) BRANDIE Valencia Service: ? 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 Last discharge within 30 days: No Advance Directive: Current Advance Directive: None Care Transition Coordinator Attempted to Assist with AD Completion: Yes [...] supplies Has the Patient Been in a Residential Facility in the Past 30 days?: No [...] Mostly I feel financially burdened by my arn-zo-cbgstd expenses for my prescription medication:: 0 - Disagree Mostly Risk Score: 0 Patient is categorized as: Low risk < 2 Are you interested in bedside delivery of your medications? Not known ASSESSMENT AND PLAN: Medical Needs: Medical Needs: Two or more chronic diseases;Nutritional Nutrition Needs: Tube Feed Psychosocial Needs: Psychosocial Needs: None FREEDOM OF CHOICE EXPLAINED: [place] of Choice Given: No (No new placeement needed and to continue with [facility]) POTENTIAL TRANSITION PLANS Home Care;Home Care Pharmacy Patient's young son lives with her, and when asked, she states that she is independent. Patient is on home enteral tube feedings via jejunostomy and here for malfunctioning tube. Provider is [employer] and referral sent. Patient is independent with [...] 29, 2020 TIME: 11:04 AM PAGER/CONTACT #: [phone] Normal [facility] CBCon 09-29-2020 Absolute nRBC <0.01 Normal <0.01 [facility] Comment on above: Performed By: #### P REALB ####[place] [address] [place], [place] [phone] Erythrocyte distribution width (RBC) [Ratio] 15.3 % High 11.5-15.0 [facility] Comment on above: Performed By: #### P REALB ####[place] [address] [place], [place] [phone] Hematocrit (Bld) [Volume fraction] 30.3 % Low 36.0-46.0 [facility] Comment on above: Performed By: #### P REALB ####[place] [address] [place], [place] [phone] Hemoglobin (Bld) [Mass/Vol] 9.1 g/dL Low 11.5-15.5 [facility] Comment on above: Performed By: #### P REALB ####[place] [address] [place], [place] [phone] MCH 25.9 pG Low 26.0-34.0 [facility] Comment on above: Performed By: #### P REALB ####[place] [address] [place], [place] [phone] MCHC (RBC) [Mass/Vol] 30.0 g/dL Low 30.5-36.0 [facility] Comment on above: Performed By: #### P REALB ####[place] [address] [place], [place] [phone] MCV (RBC) [Entitic vol] 86.3 fL Normal 80.0-100.0 [facility] Comment on above: Performed By: #### P REALB ####[place] [address] [place], [place] [phone] Platelet mean volume (Bld) [Entitic vol] 10.6 fL Normal 9.0-12.7 [facility] Comment on above: Performed By: #### P REALB ####[place] [address] [place], [place] [phone] Platelets (Bld) [#/Vol] 170 10*3/uL Normal 150-400 [facility] Comment on above: Performed By: #### P REALB ####[facility] [place], [place] [phone] RBC (Bld) [#/Vol] 3.51 10*6/uL Low 3.90-5.20 [facility] Comment on above: Performed By: #### P REALB ####[facility] [address] [place], [place] [phone] WBC (Bld) [#/Vol] 6.60 10*3/uL Normal 3.70-11.00 [facility] Comment on above: Performed By: #### P REALB ####[facility] [place],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 Diff Normal [facility] Eosinophils (Bld) [#/Vol] 0.07 10*3/uL Normal <0.46 [facility] Eosinophils/100 WBC (Bld) 1.8 % Normal [facility] Erythrocyte distribution width (RBC) [Ratio] 13.6 % Normal 11.5-15.0 [facility] Hematocrit (Bld) [Volume fraction] 27.2 % Low 36.0-46.0 [facility] Hemoglobin (Bld) [Mass/Vol] 8.5 g/dL Low 11.5-15.5 [facility] Lymphocytes (Bld) [#/Vol] 1.85 10*3/uL Normal 1.00-4.00 [facility] Lymphocytes/100 WBC (Bld) 47.4 % Normal [facility] MCH 27.7 pG Normal 26.0-34.0 [facility] MCHC (RBC) [Mass/Vol] 31.3 g/dL Normal 30.5-36.0 [facility] MCV (RBC) [Entitic vol] 88.6 fL Normal 80.0-100.0 [facility] Monocytes/100 WBC (Bld) 8.2 % Normal [facility] Neutrophils/100 WBC (Bld) 42.1 % Normal [facility] NRBCs 0.0 /100 WBC Normal 0 [facility] Platelet mean volume (Bld) [Entitic vol] 10.4 fL Normal 9.0-12.7 [facility] Platelets (Bld) [#/Vol] 150 10*3/uL Normal 150-400 [facility] RBC (Bld) [#/Vol] 3.07 10*6/uL Low 3.90-5.20 [facility] WBC (Bld) [#/Vol] 3.90 10*3/uL Normal 3.70-11.00 [facility] CONSULT PROGon 05-26-2020 CONSULT PROG HNO ID: [id number] Author: Raleigh Srivastava DO Service: General Surgery [...] -- 8.9 MG -- 1.9 SIGNATURE: Raleigh Srivastava DO Pager: DATE: 05/26/2020 TIME: 5:[address] [facility] [address] ABD/PEL W IVCONon 020 CT ABD/PEL W IVCON * * *Final Report* * * DATE OF EXAM: May 26 2020 12:43PM [facility] 0530 - CT ABD/PEL W IVCON / [...] atelectasis. Partially visualized electrodes in the heart. Senior Analysis Specialist (topogram) images: No additional findings. IMPRESSION: No [...] be communicated with the ordering provider via [employer] staff message by [employer] Support Services within 2 business days of report finalization. Algorithms for management of incidental imaging findings can be found on the [facility] Intranet Sharepoint site at: [email or web address] [email or web address]/ AllItems.[email or web address] Transcribed Using Voice Recognition Transcribe Date/Time: May 26 2020 12:59P Dictated by: ANIKET SIERRA MD This examination was interpreted and the report reviewed and electronically signed by: ANIKET SIERRA MD on May 26 2020 1:24PM EST [id number] ACTIONABLE Invalid Interpretation Code [facility] Comp Metabolic Panelon 05-26 Albumin [Mass/Vol] 3.6 g/dL Normal 3.5-5.0 [facility] ALP [Catalytic activity/Vol] 79 U/L Normal 34-123 [facility] ALT [Catalytic activity/Vol] 6 U/L Low 7-38 [facility] Anion gap [Moles/Vol] 8 mmol/L Normal 0-15 [facility] AST [Catalytic activity/Vol] 13 U/L Normal 13-35 [facility] Bilirubin [Mass/Vol] 0.4 mg/dL Normal 0.2-1.3 [facility] Calcium [Mass/Vol] 9.0 mg/dL Normal 8.5-10.2 [facility] Chloride [Moles/Vol] 106 mmol/L High 97-105 [facility] CO2 [Moles/Vol] 28 mmol/L Normal 22-30 [facility] Creatinine [Mass/Vol] 0.68 mg/dL Normal 0.58-0.96 [facility] eGFR- Amer. >60 Normal [facility] eGFR-All Other Races >60 Normal [facility] Comment on above: Result Comment: eGFR (Estimated [...] GFR. Glucose [Mass/Vol] 98 mg/dL Normal 74-99 [facility] Potassium [Moles/Vol] 3.5 mmol/L Low 3.7-5.1 [facility] Protein [Mass/Vol] 6.1 g/dL Low 6.3-8.0 [facility] Sodium [Moles/Vol] 142 mmol/L Normal 136-144 [facility] Urea nitrogen [Mass/Vol] 8 mg/dL Normal 7-21 [facility] Coronavirus 2019on 0 SARS-CoV-2 (COVID-19) RNA CRISTINA+probe Ql (Unsp spec) Nasopharyngeal Swab Normal [facility] Comment on above: Performed By: #### C OVID ####[facility] [address] [place], [place] [phone] SARS-CoV-2 (COVID-19) RNA CRISTINA+probe Ql (Unsp spec) Negative Normal Negative for COVID19 (SARS CoV2) by PCR. [facility] Comment on above: Result Comment: This test was developed and its performance characteristics determined by [facility]'s [facility] [place]. This test has been authorized by FDA under an Emergency Use Authorization (EUA). This test has been validated in accordance with the FDA's Guidance Document Policy for Diagnostics Testing in Laboratories Certified to Perform High Complexity Testing under CLIA prior to Emergency use Authorization for Coronavirus Disease 2019 during the Public Health Emergency issued on August 20, 2019. Performed By: #### C OVID ####[facility] [place], [place] [phone] Folate, Serumon 05-26-2020 Folate [Mass/Vol] 5.7 ng/mL Normal >4.7 [facility] Comment on above: Performed By: #### P THI, VITD, B1WB ####[address] [phone] Hemoglobin A1con 05-26-2020 Glucose [Mass/Vol] 114 mg/dL Normal [facility] Comment on above: Result Comment: eAG: (Estimated average glucose) is a calculated value from HgbA1c and is bank representative of the average blood glucose level in the last 2-3 month period. Performed By: #### P REALB, TRANSF #### [address] [address] HbA1c (Bld) [Mass fraction] 5.6 % Normal 4.3-5.6 [facility] Comment on above: Result Comment: Amer ican Diabetes Association guidelines indicate that patients with HgbA1c in the range 5.7-6.4% are at increased risk for development of diabetes, and intervention by lifestyle modification may be beneficial. HgbA1c greater or equal to 6.5% is considered diagnostic of diabetes. Performed By: #### P REALB, TRANSF #### [address] [address] Iron and TIBCon 05-26-2020 Iron [Mass/Vol] 20 ug/dL Low 41-186 [facility] Comment on above: Performed By: #### P THI, VITD, B1WB ####[address] [phone] TIBC 341 ug/dL Normal 210-415 [facility] Comment on above: Performed By: #### P THI, VITD, B1WB ####[address] [phone] Transferrin Saturatn 6 % Low 11-46 [facility] Comment on above: Performed By: #### P THI, VITD, B1WB ####[facility] [address], [place] [phone] Lipaseon 05-26-2020 Lipase [Catalytic activity/Vol] 112 U/L High 16-61 [facility] Lipid Panel, [place] 020 Cholesterol [Mass/Vol] 188 mg/dL Normal <200 So [facility] Comment on above: Result Comment: <200 mg/dL, Desirable 200-239 mg/dL, Borderline high >239 mg/dL, High Performed By: #### P THI, VITD, B1WB ####[place] [address] [place] [place], [place] [phone] Cholesterol in HDL [Mass/Vol] 57 mg/dL Normal >39 [facility] Comment on above: Result Comment: 40-5 9 mg/dL, Acceptable >59 mg/dL, High: Negative risk factor for coronary heart disease <40 mg/dL, Low: Positive risk factor for coronary heart disease Performed By: #### P THI, VITD, B1WB ####[place] [address] [address] [place], [place] [phone] Cholesterol in LDL [Mass/Vol] 113 mg/dL High <100 [facility] Comment on above: Result Comment: <100 mg/dL, Optimal 100-129 mg/dL, Near optimal/above optimal 130-159 mg/dL, Borderline high 160-189 mg/dL, High >189 mg/dL, Very high Secondary prevention optimal LDL Cholesterol levels are recommended to be < 70 mg/dL Performed By: #### P THI, VITD, B1WB ####[facility] [address] [place] [place], [place] [phone] Fasting Time Blood Normal [facility] Comment on above: Performed By: #### P THI, VITD, B1WB ####[facility] [address], [place] [phone] LDL:HDL Ratio 1.98 Normal <2.54 [facility] Comment on above: Result Comment: Refe rence: 1. National Cholesterol Education Program ATP III Guideline At-A-Glance Quick Desk Reference: National Heart, Lung, and Blood [place]. National Institutes of Health. 2001: NIH Publication No. 01-3305. 2. An International Atherosclerosis Society position paper: global recommendations for the management of dyslipidemia: executive summary, Atherosclerosis. 2014: 232(2):410-413. Performed By: #### P THI, VITD, B1WB ####[facility] [place] [phone] Non HDL Cholesterol 131 mg/dL High <130 [facility] Comment on above: Performed By: #### P THI, VITD, B1WB ####[address] [place] [phone] TC:HDL Ratio 3.30 Normal <5.10 [facility] Comment on above: Performed By: #### P THI, VITD, B1WB ####[address] [place] [phone] Triglyceride [Mass/Vol] 88 mg/dL Normal <150 [facility] Comment on above: Result Comment: <150 mg/dL, Normal 150-199 mg/dL, Borderline high 200-499 mg/dL, High >499 mg/dL, Very high Performed By: #### P THI, VITD, B1WB ####[address] [place], [place] [phone] VLDL Cholesterol 18 mg/dL Normal <30 [facility] Comment on above: Performed By: #### P THI, VITD, B1WB ####[address] [phone] Magnesiumon 05-26-2020 Magnesium [Mass/Vol] 2.0 mg/dL Normal 1.7-2.6 [facility] NURSING PROGon 05-26-2020 NURSING PROG HNO ID: [id number] Author: Tacho (Rn) BRANDIE Marr Service: ? Author Type: Registered Nurse Type: Nursing Progress Note Filed: 05/27/2020 4:29 AM Note Text: Nursing Progress Note Patient Name: Maricarmen Anderson Patient Location: [place]/ [place] Daily Note: 1935 Assumed care of patient, received report. Assessment complete, see NPR. 2134 Paged house servant: [id number], Paiger- Patient requesting IV fluids rate decrease. Thanks, Kp @ [phone] IV fluids reduced to 75 ml/hr will monitor how patient tolerates and notify LIP in AM. 0000 IVF reduced to 50 ml/hr per patient request. 0245 Tube feeding restarted at 10 ml/hr start rate, pt previously was not tolerating feeding. 0400 Pt observed asleep in bed, NAD, IVF and tube feed running. This note was completed by: Tacho Marr RN [facility] NURSING PROG HNO ID: [id number] Author: Bibi (Rn) BRANDIE Freeman Service: Nursing Author Type: Registered Nurse Type: Nursing Progress Note Filed: 05/26/2020 7:34 PM Note Text: Nursing Progress Note Patient Name: Maricarmen Anderson Patient Location: [place]/ [place] Daily Note:0800am report from production supervisor off shift nurse. Pt awake resting in bed. 0955am dietican rounding at bedside. Tf on hold for ct of abd/pelvis. 1140am dr. eng has rounded per pt. 1150am covid sent as ordered 1325pm pt delcines on starting tube feeding until ct results available. 1603pm pt awake resting in bed. All blood work collected and sent to lab as ordered. 1934pm report to production supervisor off shift nurse. This note was completed by: Bibi Freeman RN [facility] NURSING PROG HNO ID: [id number] Author: Rosibel VasquezRn) BRANDIE Bonilla Service: Nursing Author Type: Registered Nurse Type: Nursing Progress Note Filed: 05/26/2020 4:08 AM Note Text: Nursing Progress Note Patient Name: Maricarmen Anderson Patient Location: [facility]/ [place]-2 Daily Note: 2226 Nutren 1.5 hung at 20 ml/hr. 0000 Pt states she cannot tolerate tube feed. She is nauseous. Notified neurosurgical nurse practitioner. OK to hold TF for now. This note was completed by: Rosibel Bonilla RN [facility] NUTRITIONon 05-26-2020 NUTRITION HNO ID: [id number] Author: Molly Vázquez Service: Nutrition Therapy Author [...] Estimated kilocalorie needs: 2040 Calorie Calculation Method: [place] (with activity factor)(1.2 AF) Estimated protein needs [...] nausea and vomiting. She is from the [facility]. She did call her surgeon's service and advised her to come to [facility] to be evaluated. Patient does have a J-tube. She is able to flush her J-tube. However, the patient then vomits. She vomits after oral or J-tube feedings. Again, the patient does not have a stomach. She denies blood in the vomit. It is nonbilious. The patient is on Percocet at home. Describes a traumatic brain injury in January and was seen in the [facility]. She is now on prophylactic seizure medications [...] Assess/15 min 4 units SIGNATURE: Molly Vázquez, ,RD,LD,[facility] PATIENT NAME: Maricarmen Anderson DATE: May 26, 2020 TIME: 11:53 AM PAGER: [phone] Normal [facility] PTH, Intacton 05-26-2020 PTH, Intact 127 pg/mL High 15-65 [facility] Comment on above: Performed By: #### P THI, VITD, B1WB ####[facility] [place], [place] [phone] TSHon 05-26-2020 TSH Qn 1.040 m[IU]/L Normal 0.270-4.200 [facility] Comment on above: Result Comment: If t [...] Leone, et al. 2017 Guidelines of the [place] Thyroid Association for the Diagnosis and Management of Thyroid Disease during and the . Thyroid, 2017:27:3:315-389. Performed By: #### P THI, VITD, B1WB ####[place] [address] [place], [place] [phone] Vitamin B1, Whole Blon 05-26 Vitamin B1 (TDP), WB 56.6 nmol/L Low 84.0-213.0 [facility] Comment on above: Result Comment: This assay measures the concentration of thiamine diphosphate (TDP), the primary active form of vitamin B1. Approximately 90 percent of vitamin B1 present in whole blood is TDP. Thiamine and thiamine monophosphate, which comprise the remaining 10 percent, are not measured. This test was developed and its performance characteristics determined by [facility]'s [facility] [place] ( [facility]). It has not been cleared or approved by the FDA. [facility] is regulated under CLIA as qualified to perform high complexity testing. This test is used for clinical purposes. It should not be regarded as investigational or for research. Performed By: #### P THI, VITD, B1WB ####[place] [address] [place], [place] [phone] Vitamin B12on 05-26-2020 Cobalamin (Vitamin B12) [Mass/Vol] 247 pg/mL Normal 232-1245 [facility] Comment on above: Performed By: #### P THI, VITD, B1WB ####[place] [address] [place], [place] [phone] Vitamin D 25 Hydroxyon 05-26 Vitamin D 25 Hydroxy 9.6 ng/mL Low 31.0-80.0 [facility] Comment on above: Result Comment: Clas sification of 25 [place] Vitamin D status: Insufficiency/Moderate Deficiency: < or = 30 ng/mL Sufficiency/Optimal Levels: 31 to 80 ng/mL Toxicity: > 100 ng/mL Test performed by chemiluminescent immunoassay. Performed By: #### P THI, VITD, B1WB ####[place] [address] [place], [place] [phone] CBC and Differentialon 05-25 Abs Baso 0.03 k/uL Normal <0.11 [facility] Abs [place] 0.28 k/uL Normal <0.87 [facility] Abs Neut 2.58 k/uL Normal 1.45-7.50 [facility] Absolute nRBC <0.01 Normal <0.01 [facility] Basophils/100 WBC (Bld) 0.7 % Normal [facility] DTYPE Auto Diff Normal [facility] Eosinophils (Bld) [#/Vol] 0.04 10*3/uL Normal <0.46 [facility] Eosinophils/100 WBC (Bld) 1.0 % Normal [facility] Erythrocyte distribution width (RBC) [Ratio] 13.4 % Normal 11.5-15.0 [facility] Hematocrit (Bld) [Volume fraction] 26.8 % Low 36.0-46.0 [facility] Hemoglobin (Bld) [Mass/Vol] 8.6 g/dL Low 11.5-15.5 [facility] Lymphocytes (Bld) [#/Vol] 1.08 10*3/uL Normal 1.00-4.00 [facility] Lymphocytes/100 WBC (Bld) 26.9 % Normal [facility] MCH 27.7 pG Normal 26.0-34.0 [facility] MCHC (RBC) [Mass/Vol] 32.1 g/dL Normal 30.5-36.0 [facility] MCV (RBC) [Entitic vol] 86.2 fL Normal 80.0-100.0 [facility] Monocytes/100 WBC (Bld) 7.0 % Normal [facility] Neutrophils/100 WBC (Bld) 64.4 % Normal [facility] NRBCs 0.0 /100 WBC Normal 0 [facility] Platelet mean volume (Bld) [Entitic vol] 10.4 fL Normal 9.0-12.7 [facility] Platelets (Bld) [#/Vol] 170 10*3/uL Normal 150-400 [facility] RBC (Bld) [#/Vol] 3.11 10*6/uL Low 3.90-5.20 [facility] WBC (Bld) [#/Vol] 4.02 10*3/uL Normal 3.70-11.00 [facility] CC Profile Ulises SP,MM,EUC For SPT,MMH,EUC use onlyon 05-25-2020 [place] Test Venous Normal [facility] Attempts 1 Normal [facility] Base Excess 3 mmol/L Normal [facility] Comment on above: Result Comment: -2 T O 2 Body temperature 98.6 [degF] Normal [facility] Calcium [Moles/Vol] 1.20 mmol/L Normal 1.09-1.30 [facility] Chloride [Moles/Vol] 108 mmol/L Normal 50-400 [facility] Device None seen Normal [facility] Drawsite Venous Normal [facility] HCO3 (Bld) [Moles/Vol] 28 mmol/L High 22-26 So [facility] Hemoglobin (Bld) [Mass/Vol] 8.6 g/dL Low 12-18 [facility] Lactate [Moles/Vol] 1.3 mmol/L Normal 0.7-2.5 [facility] pCO2 46 mm Hg Normal 41-51 [facility] pH (Bld) 7.40 [pH] Normal 7.32-7.42 [facility] pO2 BELOW REPORTABLE RANGE Normal 35-42 So [facility] Potassium [Moles/Vol] 3.3 mmol/L Low 3.5-5.1 [facility] Sodium [Moles/Vol] 143 mmol/L Normal 136-146 [facility] CONSULTon 05-25-2020 CONSULT HNO ID: [id number] Author: Raleigh Srivastava DO Service: General Surgery [...] had a recent traumatic brain injury in [facility] and is on seizure medications now. PAST MEDICAL HISTORY: PAST MEDICAL HISTORY Diagnosis Date - Acute venous embolism and thrombosis of brachial vein (HCC) 2013 due to IV infiltrate, 2013, also on OCPs - Eosinophilic esophagitis - Gastroparesis - GERD (gastroesophageal reflux disease) - History of gastric bypass complications - Obesity, Class III, BMI 40-49.9 (morbid obesity) ([facility]) - Port-A-Cath in place patients right upper [...] or palpitations GI: See HPI : Negative CUSTOMER SERVICES MANAGER: Negative for abnormal vaginal bleeding, abnormal vaginal [...] CTA b/l, (more content not included)... Normal [facility] Comp Metabolic Panelon 05-25 Albumin [Mass/Vol] 3.8 g/dL Normal 3.5-5.0 [facility] ALP [Catalytic activity/Vol] 82 U/L Normal 34-123 [facility] ALT [Catalytic activity/Vol] 6 U/L Low 7-38 [facility] Anion gap [Moles/Vol] 10 mmol/L Normal 0-15 [facility] AST [Catalytic activity/Vol] 14 U/L Normal 13-35 [facility] Bilirubin [Mass/Vol] 0.3 mg/dL Normal 0.2-1.3 [facility] Calcium [Mass/Vol] 8.9 mg/dL Normal 8.5-10.2 [facility] Chloride [Moles/Vol] 107 mmol/L High 97-105 [facility] CO2 [Moles/Vol] 26 mmol/L Normal 22-30 [facility] Creatinine [Mass/Vol] 0.62 mg/dL Normal 0.58-0.96 [facility] eGFR- Amer. >60 Normal [facility] eGFR-All Other Races >60 Normal [facility] Comment on above: Result Comment: eGFR (Estimated [...] GFR. Glucose [Mass/Vol] 88 mg/dL Normal 74-99 [facility] Potassium [Moles/Vol] 3.3 mmol/L Low 3.7-5.1 [facility] Protein [Mass/Vol] 6.4 g/dL Normal 6.3-8.0 [facility] Sodium [Moles/Vol] 143 mmol/L Normal 136-144 [facility] Urea nitrogen [Mass/Vol] 10 mg/dL Normal 7-21 [facility] ED NOTEon 05-25-2020 ED NOTE HNO ID: [id number] Author: Chavo Maravilla RN Service: ? Author Type: Registered Nurse Type: ED Notes Filed: 05/25/2020 6:05 PM Note Text: Pt to the floor with caregiver, in stable condition, in NAD. Pt's infusion running without difficulty and pt belongings at bedside. [facility] ED NOTE HNO ID: [id number] Author: Chavo Maravilla RN Service: ? Author Type: Registered Nurse Type: ED Notes Filed: 05/25/2020 6:01 PM Note Text: Report given to Ceasar DIEGO, all questions addressed at this time. [facility] ED NOTE HNO ID: [id number] Author: Chavo Maravilla RN Service: ? Author Type: Registered Nurse Type: ED Notes Filed: 05/25/2020 3:27 PM Note Text: RT notified of CCVBG [facility] ED NOTE HNO ID: [id number] Author: Chavo Maravilla RN Service: ? Author [...] chest. Allergies reviewed and allergy band applied. [facility] ED NOTE HNO ID: [id number] Author: Marycarmen VasquezRn) BRANDIE Hunt Service: ? Author Type: Registered Nurse Type: ED Notes Filed: 05/25/2020 1:50 PM Note Text: Pt given cup to collect urine specimen [facility] ED NOTE HNO ID: [id number] Author: Flaquita (Medic) Charis Service: General Internal Medicine Author Type: Retail Aide and Geospatial Engineer Type: ED Notes Filed: 05/25/2020 1:43 PM Note Text: Pt states she sometimes has a rapid heart rate when she stands to walk. States she had a pacemaker placed in March 2020 at . EKG performed and given to Dr. Moreno [facility] ED NOTE HNO ID: [id number] Author: Marycarmen (Rn) BRANDIE Hunt Service: ? Author Type: Registered Nurse Type: ED Notes Filed: 05/25/2020 12:43 PM Note Text: Pt c/o nausea, vomiting, ABD pain for the past 2 weeks. She has a J tube, and when ever she pours liquid into it, she vomits. [facility] ED PROV NOTEon 05-25-2020 ED PROV NOTE HNO ID: [id number] Author: Dennis Spence DO Service: Emergency Medicine [...] nausea and vomiting. She is from the [facility]. She did call her surgeon's service and advised her to come to [facility] to be evaluated. Patient does have a J-tube. She is able to flush her J-tube. However, the patient then vomits. She vomits after oral or J-tube feedings. Again, the patient does not have a stomach. She denies blood in the vomit. It is nonbilious. The patient is on Percocet at home. Describes a traumatic brain injury in January and was seen in the [place] area. She is now on prophylactic seizure [...] Obesity, Class III, BMI 40-49.9 (morbid obesity) ([facility]LY [facility]) - Port-A-Cath in place patients right upper [...] CARE PROFILE-VE (more content not included)... Normal [facility] HOSPon 05-25-2020 HOSP Patient:Lea Anderson MRN: Height:5' [...] 05/28/2020 46.0 36.0 Progress Notes (): Marycarmen Hunt RN, RN 05/25/2020 12:43 PM Signed Pt [...] EKG performed and given to Dr. Tiffanie Hunt, RN, RN 05/25/2020 1:50 PM Signed Pt [...] nausea and vomiting. She is from the [facility]. She did call her surgeon's service and advised her to come to [facility] to be evaluated. Patient does have a J-tube. She is able to flush her J-tube. However, the patient then vomits. She vomits after oral or J-tube feedings. Again, the patient does not have a stomach. She denies blood in the vomit. It is nonbilious. The patient is on Percocet at home. Describes a traumatic brain injury in January and was seen in the [facility]. She is now on prophylactic seizure medications [...] thrombosis of (more content not included)... Normal [facility] Lipaseon 05-25-2020 Lipase [Catalytic activity/Vol] 54 U/L Normal 16-61 [facility] Magnesiumon 05-25-2020 Magnesium [Mass/Vol] 1.9 mg/dL Normal 1.7-2.6 [facility] NURSING PROGon 05-25-2020 NURSING PROG HNO ID: [id number] Author: Mitchel VasquezRn) BRANDIE Larry Service: Nursing Author Type: Registered Nurse Type: Nursing Progress Note Filed: 05/25/2020 6:27 PM Note Text: Nursing Progress Note Patient Name: Maricarmen Anderson Patient Location: [place] [address]/[place] [address] [id number] patient admitted to room [facility]. Pain reported in upper abdomen 03/31 at this time. Nausea also reported. Calling primary MD for admission orders. Patient has j-tube and uses osmolite when able. No other distress noted at this time. Patient denies SOB or CP. This note was completed by: Mitchel Larry RN [facility] NURSING PROG HNO ID: [id number] Author: Michelle VasquezRn) Page, RN Service: Nursing Author Type: Registered Nurse Type: Nursing Progress Note Filed: 05/25/2020 7:14 PM Note Text: Nursing Progress Note Patient Name: Maricarmen Anderson Patient Location: [facility]/ [place]-2 Transfer Note: Patient transferred into room/unit 721, bed 2 from ED in stable condition. Actions taken: No further actions taken at this time. Will continue to monitor and check with patient. 1912 Nursing admission database completed; MANAGER SEARCH medication list updated. This note was completed by: Michelle Zhang, RN Normal [facility] Urinalysis with Microscopico n 05-25-2020 Bacteria 1+ /HPF Critically abnormal Negative [facility] Bilirubin, Urine Negative Normal Negative [facility] Cast SEE COMMENT Normal 0 [facility] Comment on above: Result Comment: 0 Clarity (U) Slightly Cloudy Critically abnormal Clear [facility] Color (U) Yellow Normal Yellow [facility] Crystals LM Nom (Urine sed) SEE COMMENT Critically abnormal Negative [facility] Comment on above: Result Comment: 3+ Calcium Oxalate Glucose Ql (U) Negative Normal Negative [facility] Hemoglobin/Blood,Ur Negative Normal Negative [facility] Ketones Ql (U) Trace Critically abnormal Negative [facility] Leukest Trace Critically abnormal Negative [facility] Nitrite Ql (U) Negative Normal Negative [facility] pH (U) 6.0 [pH] Normal 5.0-8.0 [facility] Protein, Urine Negative Normal Negative [facility] RBC 0-3 Normal 0-3 [facility] Specific [place], Ur 1.025 Normal 1.005-1.030 [facility] Urobilinogen Qn (U) 1.0 {José'U}/dL Normal 0.2-1.0 [facility] WBC 0-5 Normal 0-5 [facility] SLEEP CENTER REPORTon 2019 SLEEP CENTER REPORT [address] [place] [address] SLEEP STUDY REPORT PATIENT NAME: MARICARMEN ANDERSON : 1980 MED REC NO: [id number] ROOM: ACCOUNT NO: [id number] ADMIT DATE: 01/24/2020 PROVIDER: Roseline Decker [facility] INTERPRETATION OF CLINICAL POLYSOMNOGRAPHY DATE OF STUDY: [...] or depression. 4. Please correlate clinically. ROSELINE DECKER ND/V_TTNER_T Doc#: [id number] CC: Roseline Decker Normal [facility] Basic Metabolic Panlon 01-01 Anion gap [Moles/Vol] 5 mmol/L Normal 0-15 [facility] Calcium [Mass/Vol] 9.2 mg/dL Normal 8.5-10.2 [facility] Chloride [Moles/Vol] 106 mmol/L High 97-105 [facility] CO2 [Moles/Vol] 26 mmol/L Normal 22-30 [facility] Creatinine [Mass/Vol] 0.81 mg/dL Normal 0.58-0.96 [facility] Glucose [Mass/Vol] 106 mg/dL High 74-99 [facility] Potassium [Moles/Vol] 3.8 mmol/L Normal 3.7-5.1 [facility] Sodium [Moles/Vol] 137 mmol/L Normal 136-144 [facility] Urea nitrogen [Mass/Vol] 9 mg/dL Normal 7-21 [facility] CASE MANAGEMon 01-02-2020 CASE MANAGEM HNO ID: [id number] Author: Anaid (Rn) BRANDIE Valencia Service: ? [...] Physician Name/Phone: Dr. Sotelo Other Caregiver Name/Phone: [employer] TRANSPORTATION ARRANGEMENTS: Transportation Arrangements: Car ADDITIONAL CONTACT RESOURCES: None Patient surgically cleared for discharge and being discharged to home today on enteral tube feedings. [employer] updated and orders to resume tube feedings sent. SIGNATURE: Anaid Valencia RN PATIENT NAME: Maricarmen Murrieta Justin DATE: January 02, 2020 TIME: 1:14 PM PAGER/CONTACT #: [phone] [facility] CNDSon 01-02-2020 CNDS HNO ID: [id number] Author: Clemente Eng Service: General Surgery Author [...] Out FOLLOW-UP APPOINTMENTS ALREADY SCHEDULED WITH A [facility] PROVIDER: No future appointments. ALLERGIES Allergen Reactions [...] the discharge management of this patient. SIGNATURE: Myanor Manley DO PAGER/CONTACT #: DATE: January 02, 2020 TIME: 12:33 PM [facility] NURSING PROGon 01-02-2020 NURSING PROG HNO ID: [id number] Author: Kimmie VasquezRn) BRANDIE Galo Service: Nursing Author Type: Registered Nurse Type: Nursing Progress Note Filed: 01/02/2020 12:27 PM Note Text: Nursing Progress Note Patient Name: Maricarmen Anderson Patient Location: - MS-906/- [place]-906-1 Daily Note: 729: received report from Silvia RN. Assumed care of patient from previous shift nurse. 08: assessment complete. See npr. Bed low and [...] know. This note was completed by: Kimmie Galo RN Normal [facility] Basic Metabolic Panlon 12-31 Anion gap [Moles/Vol] 6 mmol/L Normal 0-15 [facility] Calcium [Mass/Vol] 9.0 mg/dL Normal 8.5-10.2 [facility] Chloride [Moles/Vol] 105 mmol/L Normal 97-105 [facility] CO2 [Moles/Vol] 26 mmol/L Normal 22-30 [facility] Creatinine [Mass/Vol] 0.73 mg/dL Normal 0.58-0.96 [facility] Glucose [Mass/Vol] 92 mg/dL Normal 74-99 [facility] Potassium [Moles/Vol] 3.7 mmol/L Normal 3.7-5.1 [facility] Sodium [Moles/Vol] 137 mmol/L Normal 136-144 [facility] Urea nitrogen [Mass/Vol] 8 mg/dL Normal 7-21 [facility] NURSING PROGon 01-01-2020 NURSING PROG HNO ID: [id number] Author: Silvia (Rn) BRANDIE Marquez Service: ? Author Type: Registered Nurse Type: Nursing Progress Note Filed: 01/02/2020 3:03 AM Note Text: Nursing Progress Note Patient Name: Maricarmen Anderson Patient Location: MS/ MS Daily Note: 1905: Received report from BRANDIE Gaxiola. Patient awake and resting in bed. Call light in reach. Will continue to monitor. 2255: Assessment completed. See NPR. Patient in stable condition. All needs are met at this time. Call light in reach. Will continue to monitor. 199: Patient observed asleep. Eyes closed, even respirations. Bed in lowest position, call light in reach. Will continue to monitor This note was completed by: Silvia Marquez RN [facility] NURSING PROG HNO ID: [id number] Author: Khalida Mendes RN Service: Nursing Author Type: Registered Nurse Type: Nursing Progress Note Filed: 01/01/2020 7:23 PM Note Text: Nursing Progress Note Patient Name: Maricarmen Anderson Patient Location: MS/ MS Daily Note: 735 Resumed care for the patient, received updates from Tiny DIEGO. 0745 Tube feed increased to 40 cc/hr. 914 Assessment unchanged as charted. Safety maintained. 1400 Tube feed increased to 50 cc/hr, patient tolerating them well. 1919 Report given to Silvia DIEGO. This note was completed by: Khalida Mendes RN [facility] ALLIED HEALTHon 12-31-2019 [facility] HNO ID: [id number] Author: Uzair Hurst (Tech) Service: Radiology Author Type: Geospatial Engineer Type: Allied Health Filed: 12/31/2019 12:47 AM [...] Uzair Hurst December 31, 2019 12:46 AM Normal [facility] Basic Metabolic Panlon 12-30 Anion gap [Moles/Vol] 8 mmol/L Normal 0-15 [facility] Calcium [Mass/Vol] 8.9 mg/dL Normal 8.5-10.2 [facility] Chloride [Moles/Vol] 105 mmol/L Normal 97-105 [facility] CO2 [Moles/Vol] 25 mmol/L Normal 22-30 [facility] Creatinine [Mass/Vol] 0.62 mg/dL Normal 0.58-0.96 [facility] eGFR- Amer. >60 Normal [facility] eGFR-All Other Races >60 Normal [facility] Comment on above: Result Comment: eGFR (Estimated [...] GFR. Glucose [Mass/Vol] 81 mg/dL Normal 74-99 [facility] Potassium [Moles/Vol] 3.6 mmol/L Low 3.7-5.1 [facility] Sodium [Moles/Vol] 138 mmol/L Normal 136-144 [facility] Urea nitrogen [Mass/Vol] 9 mg/dL Normal 7-21 [facility] CBCon 12-31-2019 Absolute nRBC <0.01 Normal <0.01 [facility] Erythrocyte distribution width (RBC) [Ratio] 13.2 % Normal 11.5-15.0 [facility] Hematocrit (Bld) [Volume fraction] 28.7 % Low 36.0-46.0 [facility] Hemoglobin (Bld) [Mass/Vol] 9.3 g/dL Low 11.5-15.5 [facility] MCH 29.9 pG Normal 26.0-34.0 [facility] MCHC (RBC) [Mass/Vol] 32.4 g/dL Normal 30.5-36.0 [facility] MCV (RBC) [Entitic vol] 92.3 fL Normal 80.0-100.0 [facility] Platelet mean volume (Bld) [Entitic vol] 10.7 fL Normal 9.0-12.7 [facility] Platelets (Bld) [#/Vol] 151 10*3/uL Normal 150-400 [facility] RBC (Bld) [#/Vol] 3.11 10*6/uL Low 3.90-5.20 [facility] WBC (Bld) [#/Vol] 5.08 10*3/uL Normal 3.70-11.00 [facility] CBC and Differentialon 12-30 Abs Baso 0.03 k/uL Normal <0.11 [facility] Abs [place] 0.49 k/uL Normal <0.87 [facility] Abs Neut 3.99 k/uL Normal 1.45-7.50 [facility] Absolute nRBC <0.01 Normal <0.01 [facility] Basophils/100 WBC (Bld) 0.5 % Normal [facility] DTYPE Auto Diff Normal [facility] Eosinophils (Bld) [#/Vol] 0.04 10*3/uL Normal <0.46 [facility] Eosinophils/100 WBC (Bld) 0.6 % Normal [facility] Erythrocyte distribution width (RBC) [Ratio] 13.1 % Normal 11.5-15.0 [facility] Hematocrit (Bld) [Volume fraction] 30.3 % Low 36.0-46.0 [facility] Hemoglobin (Bld) [Mass/Vol] 9.8 g/dL Low 11.5-15.5 [facility] Lymphocytes (Bld) [#/Vol] 1.70 10*3/uL Normal 1.00-4.00 [facility] Lymphocytes/100 WBC (Bld) 27.2 % Normal [facility] MCH 29.6 pG Normal 26.0-34.0 [facility] MCHC (RBC) [Mass/Vol] 32.3 g/dL Normal 30.5-36.0 [facility] MCV (RBC) [Entitic vol] 91.5 fL Normal 80.0-100.0 [facility] Monocytes/100 WBC (Bld) 7.8 % Normal [facility] Neutrophils/100 WBC (Bld) 63.9 % Normal [facility] NRBCs 0.0 /100 WBC Normal 0 [facility] Platelet mean volume (Bld) [Entitic vol] 11.0 fL Normal 9.0-12.7 [facility] Platelets (Bld) [#/Vol] 177 10*3/uL Normal 150-400 [facility] RBC (Bld) [#/Vol] 3.31 10*6/uL Low 3.90-5.20 [facility] WBC (Bld) [#/Vol] 6.26 10*3/uL Normal 3.70-11.00 [facility] CT ABD/PEL W IVCONon 12-30-[address] ABD/PEL W IVCON * * *Final Report* * * DATE OF EXAM: Dec 31 2019 12:49AM [facility] 0530 - CT ABD/PEL W IVCON / [...] Dec 31 2019 1:31AM EST [id number] Normal [facility] Comp Metabolic Panelon 12-30 Albumin [Mass/Vol] 3.8 g/dL Normal 3.5-5.0 [facility] ALP [Catalytic activity/Vol] 70 U/L Normal 34-123 [facility] ALT [Catalytic activity/Vol] 9 U/L Normal 7-38 [facility] Anion gap [Moles/Vol] 7 mmol/L Normal 0-15 [facility] AST [Catalytic activity/Vol] 15 U/L Normal 13-35 [facility] Bilirubin [Mass/Vol] 0.3 mg/dL Normal 0.2-1.3 [facility] Calcium [Mass/Vol] 9.1 mg/dL Normal 8.5-10.2 [facility] Chloride [Moles/Vol] 105 mmol/L Normal 97-105 [facility] CO2 [Moles/Vol] 26 mmol/L Normal 22-30 [facility] Creatinine [Mass/Vol] 0.60 mg/dL Normal 0.58-0.96 [facility] eGFR- Amer. >60 Normal [facility] eGFR-All Other Races >60 Normal [facility] Comment on above: Result Comment: eGFR (Estimated [...] GFR. Glucose [Mass/Vol] 84 mg/dL Normal 74-99 [facility] Potassium [Moles/Vol] 3.4 mmol/L Low 3.7-5.1 [facility] Protein [Mass/Vol] 6.2 g/dL Low 6.3-8.0 [facility] Sodium [Moles/Vol] 138 mmol/L Normal 136-144 [facility] Urea nitrogen [Mass/Vol] 11 mg/dL Normal 7-21 [facility] Coronavirus 2019on 0 SARS-CoV-2 (COVID-19) RNA CRISTINA+probe Ql (Unsp spec) Nasopharyngeal Swab Normal [facility] Comment on above: Performed By: #### P REALBernard, TRANSF #### [place] [address] SARS-CoV-2 (COVID-19) RNA CRISTINA+probe Ql (Unsp spec) Negative Normal Negative for COVID19 (SARS CoV2) by PCR. [facility] Comment on above: Result Comment: This test was developed and its performance characteristics determined by [facility] [place]. This test has been authorized by FDA under an Emergency Use Authorization (EUA). This test has been validated in accordance with the FDA's Guidance Document Policy for Diagnostics Testing in Laboratories Certified to Perform High Complexity Testing under CLIA prior to Emergency use Authorization for Coronavirus Disease 2019 during the Public Health Emergency issued on August 20, 2019. Performed By: #### P RALPH, TRANSF #### [facility] [address] [place], [place] [address] ED NOTEon 12-31-2019 ED NOTE HNO ID: [id number] Author: Paul VasquezRn) BRANDIE Culver Service: Emergency Medicine Author Type: Registered Nurse Type: ED Notes Filed: 12/31/2019 12:28 AM Note Text: Patient to CT and then stable for admission to 9th floor, report called to BRANDIE Villaseñor. Patient transported with medic, stable at time of transfer from ED [facility] ED NOTE HNO ID: [id number] Author: Paul Coffey) BRANDIE Culver Service: Emergency Medicine Author Type: Registered Nurse Type: ED Notes Filed: 12/30/2019 11:43 PM Note Text: Patient finished contrast, CT aware [facility] ED NOTE HNO ID: [id number] Author: Paul Coffey) BRANDIE Culver Service: Emergency Medicine Author Type: Registered Nurse Type: ED Notes Filed: 12/30/2019 10:55 PM Note Text: Urine obtained and sent [facility] ED NOTE HNO ID: [id number] Author: Paul Coffey) BRANDIE Culver Service: Emergency Medicine Author Type: Registered Nurse Type: ED Notes Filed: 12/30/2019 10:55 PM Note Text: Covid swab obtained, placed on ice and walked to lab by TAMMIE [facility] ED PROV NOTEon 12-31-2019 ED PROV NOTE HNO ID: [id number] Author: Milton Kate MD Service: Emergency Medicine [...] 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 Normal [facility] Ferritinon 12-31-2019 Ferritin [Mass/Vol] 10.5 ng/mL Low 14.7-205.1 [facility] Ferritin [Mass/Vol] 13.6 ng/mL Low 14.7-205.1 [facility] Comment on above: Performed By: #### P REALB, TRANSF #### [facility] [address] [place], [place] [address] HISTORY PHYSICALon 0 HISTORY PHYSICAL HNO ID: [id number] Author: Raleigh Srivastava DO Service: General Surgery [...] to daily, appreciate nutrition help. 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 Normal [facility] Lipaseon 12-31-2019 Lipase [Catalytic activity/Vol] 33 U/L Normal 16-61 [facility] Magnesiumon 12-31-2019 Magnesium [Mass/Vol] 1.8 mg/dL Normal 1.7-2.6 [facility] NURSING PROGon 12-31-2019 NURSING PROG HNO ID: [id number] Author: Tiny (Rn) BRANDIE Chamberlain Service: Nursing Author Type: Registered Nurse Type: Nursing Progress Note Filed: 01/01/2020 3:51 AM Note Text: Nursing Progress Note Patient Name: Maricarmen Anderson Patient Location: /-1 1919 Received report from RN. Patient is in the bed resting with no signs of distress. All personal possessions are within reach. Needs are met at this time. Bed is low and locked. Bed alarm is on. 1920 Requested phenergan from pharmacy. 0000 Tube feed increased to 30 ml/hr 0200 pt sleeping This note was completed by: Tiny Chamberlain RN [facility] NURSING [facility] ID: [id number] Author: Khalida Mendes RN Service: Nursing Author Type: Registered Nurse Type: Nursing Progress Note Filed: 12/31/2019 7:28 PM Note Text: Nursing Progress Note Patient Name: Maricarmen Anderson Patient Location: MS/ MS Daily Note: 714 Received report from Sheyla DIEGO. 0850 Assessment completed as charted. Patient complains of nausea and pain. Call light within reach and bed in lowest position will continue to monitor. 1100 Diet advanced to full liquids. 1115 Tube feed started. 1730 Tube feed increased to 20 cc/hr. 1924 Report given to Tiny DIEGO. This note was completed by: Khalida Mendes RN [facility] NURSING [facility] ID: [id number] Author: Sheyla Coffey)Polina Martinez Service: ? Author Type: Registered Nurse Type: Nursing Progress Note Filed: 12/31/2019 5:17 AM Note Text: Nursing Progress Note Patient Name: Maricarmen Anderson Patient Location: MS/ MS- Transfer Note: Patient transferred into room/unit 906 in stable condition. Actions taken: No futher actions taken at this time. Will continue to monitor and check with patient. Patient belongings with patient This note was completed by: Sheyla Martinez RN [facility] NURSING PROG HNO ID: [id number] Author: Sheyla Martinez Service: ? Author Type: Registered Nurse Type: Nursing Progress Note Filed: 12/31/2019 5:16 AM Note Text: Nursing Progress Note Patient Name: Maricarmen Anderson Patient Location: [facility]/ [place] Daily Note: 0027 received report from Paul WILSON, patient going to CT before coming to floor 0045 patient on floor 0048assessment complete, see NPR. Patient's belongings, call light are with in reach. Bed is locked and in lowest position. Patient in no distress at this time. This note was completed by: Sheyla Martinez RN [facility] NUTRITIONon 12-31-2019 NUTRITION HNO ID: [id number] Author: Molly Vázquez Service: Nutrition Therapy Author Type: Registered Dietitian Type: Nutrition Filed: 12/31/2019 11:54 AM Note Text: NUTRITION THERAPY INITIAL ASSESSMENT SERVICE DATE: 12/31/2019 SERVICE TIME: 11:52 AM Nutrition Assessment: Recommended Malnutrition Diagnosis: No Malnutrition Identified Nutrition Diagnosis: Problem: Suboptimal protein/energy intake Related to: Inability to consume sufficient nutrients As evidenced by: Patient/family self-report;Nausea;Vomiti ng Estimated kilocalorie needs: [id number] Calorie Calculation Method: 15-20 kcals/kg Estimated protein needs (grams): 71-89 Grams protein determined by: 1.2-1.5 g/kg;[place] Body Weight Care Plan: Continue current diet [...] of Inflammation: Chronic condition SIGNATURE: Molly Vázquez, MS,RD,[facility] PAT[facility] NAME: Maricarmen Anderson DATE: December 31, 2019 TIME: 11:51 AM PAGER: [phone] Normal [facility] Phosphoruson 12-31-2019 Phosphate [Mass/Vol] 3.7 mg/dL Normal 2.7-4.8 [facility] Prealbuminon 12-31-2019 Prealbumin [Mass/Vol] 20 mg/dL Normal 17-36 [facility] Comment on above: Performed By: #### P REALB, TRANSF #### [facility] [address] [place] [address] Transferrinon 12-31-2019 Transferrin [Mass/Vol] 266 mg/dL Normal 200-360 So [facility] Comment on above: Performed By: #### P REALB, TRANSF #### [facility] [address] [place] [address] Urinalysis with Microscopico n 12-31-2019 Amorphous Crystal 2+ Normal [facility] Bacteria 4+ /HPF Critically abnormal Negative [facility] Bilirubin, Urine Negative Normal Negative [facility] Cast SEE COMMENT Normal 0 [facility] Comment on above: Result Comment: 0 Clarity (U) Cloudy Critically abnormal Clear [facility] Color (U) Yellow Normal Yellow [facility] Epithelial cells LM Ql (Urine sed) SEE COMMENT Critically abnormal Occasional [facility] Comment on above: Result Comment: 4+ Squamous Epithelial Cells Glucose Ql (U) Negative Normal Negative [facility] Hemoglobin/Blood,Ur Negative Normal Negative [facility] Ketones Ql (U) Trace Critically abnormal Negative [facility] Leukest 2+ Critically abnormal Negative [facility] Nitrite Ql (U) Negative Normal Negative [facility] pH (U) 7.0 [pH] Normal 5.0-8.0 [facility] Protein, Urine Negative Normal Negative [facility] RBC 0-3 Normal 0-3 [facility] Specific [place], Ur 1.025 Normal 1.005-1.030 [facility] Urobilinogen Qn (U) 1.0 {José'U}/dL Normal 0.2-1.0 [facility] WBC 6-10 Critically abnormal 0-5 [facility] PROGRESSon 09-19-2019 PROGRESS HNO ID: [id number] Author: Emelia Baldwin Service: ? Author Type: [...] 6 hours as needed. OBJECTIVE: PHYSICAL EXAM: [facility] 05/18/2019 GENERAL APPEARANCE: Well nourished, well developed, [...] TIME: 1:00 PM PAGER: Emelia Baldwin MD [facility] 09-13-2019 [facility] Telephone (NSFRVW) ----- PAIGEMARICARMEN Johnson ([id number]) 1980 [facility] Date Time Provider Department 09/13/19 EMELIA BALDWIN Solexa[facility]W During your visit today, we recorded the following information about you: ShanaChristian Ann Pss 09/13/2019 3:55 PM Signed Patient has been identified by name and date of : Yes Type of form: [facility] Disability Form received via: Fax When form is completed, fax form to fax number provided. [phone] Form has been forwarded to: Nurse Robert Ann [facility] Ángela Luis PA-C 09/14/2019 8:46 AM Signed [...] 09/20/2019 2:30 PM Signed Per Duane at [facility] at [phone] what is the status of the long term care social worker disability forms sent to us? Katelynn Joseph Sec 09/27/2019 2:21 PM Addendum Duane, from [facility], called again, last call 09-16-19, what is the status of fci disability forms for patient? Allergies As of Date: 09/13/2019 Noted Allergy Reaction DILAUDID (HYDROMORPHONE (BULK)) 03/28/2019 9 - Itching Date Reviewed: 08/14/2019 Reviewed by: Saskia Coffey) BRANDIE Sharpe - Fully Assessed Reason for Visit: fci disability [Other] Prescriptions as of 09/13/2019 Sig: [...] Encounter Status:Closed by YONG PADILLA on 09/16/19 [facility] 05-13-2019 [facility] HNO ID: [id number] Author: Uzair Angulo (Tech) Service: Radiology Author Type: Geospatial Engineer Type: Allied Health Filed: 05/13/2019 10:22 AM [...] Bill King May 13, 2019 10:22 AM Normal [facility] MRI CERVICAL SPINE WO IVCONo n 05-13-2019 MRI CERVICAL SPINE WO IVCON * * *Final Report* * * DATE OF EXAM: May 13 2019 10:50AM [facility] 0297 - MRI CERVICAL SPINE WO IVCON [...] vertebrae with counting from the craniocervical junction. Acting Instructor: LISA Transcribe Date/Time: May 13 2019 12:52P Dictated by : JON OSBORNE MD This examination was interpreted and the report reviewed and electronically signed by: JON OSBORNE MD on May 13 2019 1:16PM EST [id number] [facility] [place] Vital Signs Date Time Vital Sign Value Performing Clinician Facility 06-10-2024 09:33-0500 Body height 167.64 cm Viktor Sotelo MD Work Phone: [facility] 06-10-2024 09:33-0500 Body mass index (BMI) [Ratio] 43.4 kg/m2 Viktor Sotelo MD Work Phone: [facility] 06-10-2024 09:33-0500 Body weight 122.01 kg Viktor Sotelo MD Work Phone: [facility] 06-10-2024 09:33-0500 Diastolic blood pressure 66 mm[Hg] Vikotr Sotelo MD Work Phone: [facility] 06-10-2024 09:33-0500 Heart rate 93 /min Viktor Sotelo MD Work Phone: [facility] 06-10-2024 09:33-0500 Systolic blood pressure 93 mm[Hg] Viktor Sotelo MD Work Phone: [facility] 11-12-2023 13:23-0400 Body height 167.64 cm MD Viktor Sotelo Work Phone: [facility] 11-12-2023 13:23-0400 Body mass index (BMI) [Ratio] 41.1 kg/m2 MD Viktor Sotelo Work Phone: [facility] 11-12-2023 13:23-0400 Body weight 115.66 kg MD Viktor Sotelo Work Phone: [facility] 11-12-2023 13:23-0400 Diastolic blood pressure 73 mm[Hg] MD Viktor Sotelo Work Phone: [facility] 11-12-2023 13:23-0400 Heart rate 81 /min MD Viktor Sotelo Work Phone: [facility] 11-12-2023 13:23-0400 Systolic blood pressure 108 mm[Hg] MD Viktor Sotelo Work Phone: [facility] 01-21-2023 06:55-0400 Body height 167.64 cm MD Viktor Sotelo Work Phone: [facility] 01-21-2023 06:55-0400 Body weight 108.86 kg MD Viktor Sotelo Work Phone: [facility] 01-20-2023 08:36-0400 Body height 167.64 cm Viktor Sotelo Work Phone: [facility] [address] DO Work Phone: 01-20-2023 08:36-0400 Body mass index (BMI) [Ratio] 39.06 kg/m2 Viktor Sotelo Work Phone: [facility] [address] DO Work Phone: 01-20-2023 08:36-0400 Body surface area Derived from formula 2.17 m2 Viktor Sotelo Work Phone: [facility] [address] DO Work Phone: 01-20-2023 08:36-0400 Body weight 109.77 kg Viktor Sotelo Work Phone: [facility] [address] DO Work Phone: 01-20-2023 08:36-0400 Diastolic blood pressure 80 mm[Hg] Viktor Sotelo Work Phone: [facility] [address] DO Work Phone: 01-20-2023 08:36-0400 Respiratory rate 60 /min Viktor Sotelo Work Phone: [facility] [address] DO Work Phone: 01-20-2023 08:36-0400 Systolic blood pressure 122 mm[Hg] Viktor Sotelo Work Phone: [facility] [address] DO Work Phone: 12-15-2022 09:00-0400 Body weight 109.04 kg MD Viktor Sotelo Work Phone: [facility] 12-15-2022 07:30-0400 Body temperature 97.9 [degF] MD Viktor Sotelo Work Phone: [facility] 12-15-2022 07:30-0400 Diastolic blood pressure 72 mm[Hg] MD Viktor Sotelo Work Phone: [facility] 12-15-2022 07:30-0400 Heart rate 81 /min MD Viktor Sotelo Work Phone: [facility] 12-15-2022 07:30-0400 SaO2% (BldA) [Mass fraction] 100 % MD Viktor Sotelo Work Phone: [facility] 12-15-2022 07:30-0400 Systolic blood pressure 115 mm[Hg] MD Viktor Sotelo Work Phone: [facility] 12-14-2022 20:18-0400 Respiratory rate 16 /min MD Viktor Sotelo Work Phone: [facility] 12-12-2022 13:58-0400 Body height 167.64 cm MD Viktor Sotelo Work Phone: [facility] 12-11-2022 20:49-0400 Diastolic blood pressure 87 mm[Hg] MD Viktor Sotelo Work Phone: [facility] 12-11-2022 20:49-0400 Heart rate 70 /min MD Viktor Sotelo Work Phone: [facility] 12-11-2022 20:49-0400 Respiratory rate 18 /min MD Viktor Sotelo Work Phone: [facility] 12-11-2022 20:49-0400 SaO2% (BldA) [Mass fraction] 99 % MD Viktor Sotelo Work Phone: [facility] 12-11-2022 20:49-0400 Systolic blood pressure 132 mm[Hg] MD Viktor Sotelo Work Phone: [facility] 12-11-2022 17:43-0400 Body height 167.64 cm MD Viktor Sotelo Work Phone: [facility] 12-11-2022 17:43-0400 Body temperature 97.7 [degF] MD Viktor Sotelo Work Phone: [facility] 12-11-2022 17:43-0400 Body weight 108.86 kg MD Viktor Sotelo Work Phone: [facility] 11-01-2022 07:24-0400 Body temperature 97.6 [degF] MD Viktor Sotelo Work Phone: [facility] 11-01-2022 07:24-0400 Diastolic blood pressure 66 mm[Hg] MD Viktor Sotelo Work Phone: [facility] 11-01-2022 07:24-0400 Heart rate 67 /min MD Viktor Sotelo Work Phone: [facility] 11-01-2022 07:24-0400 Respiratory rate 16 /min MD Viktor Sotelo Work Phone: [facility] 11-01-2022 07:24-0400 SaO2% (BldA) [Mass fraction] 95 % MD Viktor Sotelo Work Phone: [facility] 11-01-2022 07:24-0400 Systolic blood pressure 104 mm[Hg] MD Viktor Sotelo Work Phone: [facility] 10-31-2022 14:36-0400 Body height 167.64 cm MD Viktor Sotelo Work Phone: [facility] 10-28-2022 19:02-0400 Body weight 110.67 kg MD Viktor Sotelo Work Phone: [facility] 10-28-2022 17:56-0400 Diastolic blood pressure 66 mm[Hg] MD Viktor Sotelo Work Phone: [facility] 10-28-2022 17:56-0400 Heart rate 57 /min MD Viktor Sotelo Work Phone: [facility] 10-28-2022 17:56-0400 Respiratory rate 16 /min MD Viktor Sotelo Work Phone: [facility] 10-28-2022 17:56-0400 SaO2% (BldA) [Mass fraction] 97 % MD Viktor Sotelo Work Phone: [facility] 10-28-2022 17:56-0400 Systolic blood pressure 132 mm[Hg] MD Viktor Sotelo Work Phone: [facility] 10-28-2022 14:47-0400 Body height 167.64 cm MD Viktor Sotelo Work Phone: [facility] 10-28-2022 14:47-0400 Body temperature 97.8 [degF] MD Viktor Sotelo Work Phone: [facility] 10-28-2022 14:47-0400 Body weight 111.25 kg MD Viktor Sotelo Work Phone: [facility] 10-18-2022 19:10-0400 Diastolic blood pressure 84 mm[Hg] MD Viktor Sotelo Work Phone: [facility] 10-18-2022 19:10-0400 Heart rate 71 /min MD Viktor Sotelo Work Phone: [facility] 10-18-2022 19:10-0400 Respiratory rate 18 /min MD Viktor Sotelo Work Phone: [facility] 10-18-2022 19:10-0400 SaO2% (BldA) [Mass fraction] 97 % MD Viktor Sotelo Work Phone: [facility] 10-18-2022 19:10-0400 Systolic blood pressure 141 mm[Hg] MD Viktor Sotelo Work Phone: [facility] 10-18-2022 16:53-0400 Body temperature 98 [degF] MD Viktor Sotelo Work Phone: [facility] 10-18-2022 16:51-0400 Body height 167.64 cm MD Viktor Sotelo Work Phone: [facility] 10-18-2022 16:51-0400 Body weight 112 kg MD Viktor Sotelo Work Phone: [facility] 09-28-2022 22:35-0400 Diastolic blood pressure 81 mm[Hg] MD Viktor Sotelo Work Phone: [facility] 09-28-2022 22:35-0400 Heart rate 97 /min MD Viktor Sotelo Work Phone: [facility] 09-28-2022 22:35-0400 Respiratory rate 18 /min MD Viktor Sotelo Work Phone: [facility] 09-28-2022 22:35-0400 SaO2% (BldA) [Mass fraction] 96 % MD Viktor Sotelo Work Phone: [facility] 09-28-2022 22:35-0400 Systolic blood pressure 131 mm[Hg] MD Viktor Sotelo Work Phone: [facility] 09-28-2022 21:15-0400 Body temperature 100.7 [degF] MD Viktor Sotelo Work Phone: [facility] 09-28-2022 19:07-0400 Body height 167.64 cm MD Viktor Sotelo Work Phone: [facility] 09-28-2022 19:07-0400 Body weight 114 kg MD Viktor Sotelo Work Phone: [facility] 09-07-2022 15:07-0400 Body temperature 97.8 [degF] MD Viktor Sotelo Work Phone: [facility] 09-07-2022 15:07-0400 Diastolic blood pressure 60 mm[Hg] MD Viktor Sotelo Work Phone: [facility] 09-07-2022 15:07-0400 Heart rate 78 /min MD Viktor Sotelo Work Phone: [facility] 09-07-2022 15:07-0400 SaO2% (BldA) [Mass fraction] 96 % MD Viktor Sotelo Work Phone: [facility] 09-07-2022 15:07-0400 Systolic blood pressure 100 mm[Hg] MD Viktor Sotelo Work Phone: [facility] 09-07-2022 07:30-0400 Respiratory rate 16 /min MD Viktor Sotelo Work Phone: [facility] 09-04-2022 14:15-0400 Body height 167.64 cm MD Viktor Sotelo Work Phone: [facility] 09-04-2022 02:40-0400 Body weight 111.13 kg MD Viktor Sotelo Work Phone: [facility] 08-13-2022 08:18-0500 Body temperature 98.1 [degF] MD Viktor Sotelo Work Phone: [facility] 08-13-2022 08:18-0500 Diastolic blood pressure 82 mm[Hg] MD Viktor Sotelo Work Phone: [facility] 08-13-2022 08:18-0500 Heart rate 60 /min MD Viktor Sotelo Work Phone: [facility] 08-13-2022 08:18-0500 Respiratory rate 16 /min MD Viktor Sotelo Work Phone: [facility] 08-13-2022 08:18-0500 SaO2% (BldA) [Mass fraction] 96 % MD Viktor Sotelo Work Phone: [facility] 08-13-2022 08:18-0500 Systolic blood pressure 126 mm[Hg] MD Viktor Sotelo Work Phone: [facility] 08-11-2022 21:50-0500 Body height 167.64 cm MD Viktor Sotelo Work Phone: [facility] 08-11-2022 21:50-0500 Body weight 114.75 kg MD Viktor Sotelo Work Phone: [facility] 08-05-2022 09:27-0500 Body temperature 98.1 [degF] MD Viktor Sotelo Work Phone: [facility] 08-05-2022 09:27-0500 Respiratory rate 16 /min MD Viktor Sotelo Work Phone: [facility] 08-05-2022 09:07-0500 Diastolic blood pressure 74 mm[Hg] MD Viktor Sotelo Work Phone: [facility] 08-05-2022 09:07-0500 Heart rate 83 /min MD Viktor Sotelo Work Phone: [facility] 08-05-2022 09:07-0500 Systolic blood pressure 124 mm[Hg] MD Viktor Sotelo Work Phone: [facility] 08-05-2022 09:05-0500 Body height 167.64 cm MD Viktor Sotelo Work Phone: [facility] 08-05-2022 09:05-0500 Body weight 115.21 kg MD Viktor Sotelo Work Phone: [facility] 08-02-2022 12:30-0500 Diastolic blood pressure 79 mm[Hg] MD Viktor Sotelo Work Phone: [facility] 08-02-2022 12:30-0500 Heart rate 68 /min MD Viktor Sotelo Work Phone: [facility] 08-02-2022 12:30-0500 Systolic blood pressure 143 mm[Hg] MD Viktor Sotelo Work Phone: [facility] 08-02-2022 12:15-0500 Respiratory rate 18 /min MD Viktor Sotelo Work Phone: [facility] 08-02-2022 10:30-0500 Body temperature 97.2 [degF] MD Viktor Sotelo Work Phone: [facility] 08-02-2022 08:36-0500 SaO2% (BldA) [Mass fraction] 94 % MD Viktor Sotelo Work Phone: [facility] 08-01-2022 22:01-0500 Body height 167.64 cm MD Viktor Sotelo Work Phone: [facility] 08-01-2022 22:01-0500 Body weight 115.21 kg MD Viktor Sotelo Work Phone: [facility] 07-22-2022 10:12-0500 Body height 167.64 cm Viktor Sotelo Work Phone: [facility] [address] DO Work Phone: 07-22-2022 10:12-0500 Body mass index (BMI) [Ratio] 41.8 kg/m2 Viktor Sotelo Work Phone: [facility] [address] DO Work Phone: 07-22-2022 10:12-0500 Body surface area Derived from formula 2.23 m2 Viktor Sotelo Work Phone: [facility] [address] DO Work Phone: 07-22-2022 10:12-0500 Body weight 117.48 kg Viktor Sotelo Work Phone: [facility] [address] DO Work Phone: 07-22-2022 10:12-0500 Diastolic blood pressure 72 mm[Hg] Viktor Sotelo Work Phone: [facility] [address] DO Work Phone: 07-22-2022 10:12-0500 Heart rate 73 /min Viktor Sotelo Work Phone: [facility] [address] DO Work Phone: 07-22-2022 10:12-0500 Systolic blood pressure 114 mm[Hg] Viktor Sotelo Work Phone: [facility] [address] DO Work Phone: 07-17-2022 15:30-0500 Body temperature 97.9 [degF] MD Viktor Sotelo Work Phone: [facility] 07-17-2022 15:30-0500 Diastolic blood pressure 68 mm[Hg] MD Viktor Sotelo Work Phone: [facility] 07-17-2022 15:30-0500 Heart rate 78 /min MD Viktor Sotelo Work Phone: [facility] 07-17-2022 15:30-0500 Respiratory rate 18 /min MD Viktor Sotelo Work Phone: [facility] 07-17-2022 15:30-0500 SaO2% (BldA) [Mass fraction] 100 % MD Viktor Sotelo Work Phone: [facility] 07-17-2022 15:30-0500 Systolic blood pressure 149 mm[Hg] MD Viktor Sotelo Work Phone: [facility] 07-16-2022 16:29-0500 Body height 167.64 cm MD Viktor Sotelo Work Phone: [facility] 07-15-2022 13:12-0500 Body weight 115.66 kg MD Viktor Sotelo Work Phone: [facility] 07-15-2022 10:53-0500 Body height 167.64 cm MD Viktor Sotelo Work Phone: [facility] 07-15-2022 10:53-0500 Body temperature 98.7 [degF] MD Viktor Sotelo Work Phone: [facility] 07-15-2022 10:53-0500 Body weight 115.85 kg MD Viktor Sotelo Work Phone: [facility] 07-15-2022 10:53-0500 Diastolic blood pressure 80 mm[Hg] MD Viktor Sotelo Work Phone: [facility] 07-15-2022 10:53-0500 Heart rate 72 /min MD Viktor Sotelo Work Phone: [facility] 07-15-2022 10:53-0500 Respiratory rate 20 /min MD Viktor Sotelo Work Phone: [facility] 07-15-2022 10:53-0500 SaO2% (BldA) [Mass fraction] 98 % MD Viktor Sotelo Work Phone: [facility] 07-15-2022 10:53-0500 Systolic blood pressure 149 mm[Hg] MD Viktor Sotelo Work Phone: [facility] 07-09-2022 13:38-0500 Diastolic blood pressure 71 mm[Hg] MD Viktor Sotelo Work Phone: [facility] 07-09-2022 13:38-0500 Heart rate 85 /min MD Viktor Sotelo Work Phone: [facility] 07-09-2022 13:38-0500 Systolic blood pressure 109 mm[Hg] MD Viktor Sotelo Work Phone: [facility] 07-09-2022 11:35-0500 Body temperature 98.1 [degF] MD Viktor Sotelo Work Phone: [facility] 07-09-2022 11:35-0500 Respiratory rate 18 /min MD Viktor Sotelo Work Phone: [facility] 07-09-2022 11:35-0500 SaO2% (BldA) [Mass fraction] 97 % MD Viktor Sotelo Work Phone: [facility] 06-26-2022 22:17-0500 Respiratory rate 16 /min MD Viktor Sotelo Work Phone: [facility] 06-26-2022 21:54-0500 Body temperature 97.3 [degF] MD Viktor Sotelo Work Phone: [facility] 06-26-2022 21:53-0500 Diastolic blood pressure 81 mm[Hg] MD Viktor Sotelo Work Phone: [facility] 06-26-2022 21:53-0500 Heart rate 83 /min MD Viktor Sotelo Work Phone: [facility] 06-26-2022 21:53-0500 Systolic blood pressure 132 mm[Hg] MD Viktor Sotelo Work Phone: [facility] 06-26-2022 21:37-0500 Body height 167.64 cm MD Viktor Sotelo Work Phone: [facility] 06-26-2022 21:37-0500 Body weight 117.93 kg MD Viktor Sotelo Work Phone: [facility] 06-25-2022 22:03-0500 Diastolic blood pressure 78 mm[Hg] MD Viktor Sotelo Work Phone: [facility] 06-25-2022 22:03-0500 Heart rate 90 /min MD Viktor Sotelo Work Phone: [facility] 06-25-2022 22:03-0500 Respiratory rate 18 /min MD Viktor Sotelo Work Phone: [facility] 06-25-2022 22:03-0500 SaO2% (BldA) [Mass fraction] 97 % MD Viktor Sotelo Work Phone: [facility] 06-25-2022 22:03-0500 Systolic blood pressure 127 mm[Hg] MD Viktor Sotelo Work Phone: [facility] 06-25-2022 17:29-0500 Body height 167.64 cm MD Viktor Sotelo Work Phone: [facility] 06-25-2022 17:29-0500 Body temperature 98.3 [degF] MD Viktor Sotelo Work Phone: [facility] 06-25-2022 17:29-0500 Body weight 117 kg MD Viktor Sotelo Work Phone: [facility] 06-25-2022 12:40-0500 Body temperature 97.9 [degF] MD Viktor Sotelo Work Phone: [facility] 06-25-2022 12:40-0500 Diastolic blood pressure 80 mm[Hg] MD Viktor Sotelo Work Phone: [facility] 06-25-2022 12:40-0500 Heart rate 66 /min MD Viktor Sotelo Work Phone: [facility] 06-25-2022 12:40-0500 Respiratory rate 18 /min MD Viktor Sotelo Work Phone: [facility] 06-25-2022 12:40-0500 SaO2% (BldA) [Mass fraction] 98 % MD Viktor Sotelo Work Phone: [facility] 06-25-2022 12:40-0500 Systolic blood pressure 129 mm[Hg] MD Viktor Sotelo Work Phone: [facility] 02-13-2022 07:45-0400 60 1 Viktor Sotelo Work Phone: [facility] [place] Work Phone: Comment on above: [id number] 01-20-2022 19:14-0400 Diastolic blood pressure 64 mm[Hg] MD Viktor Sotelo Work Phone: [facility] 01-20-2022 19:14-0400 Heart rate 64 /min MD Viktor Sotelo Work Phone: [facility] 01-20-2022 19:14-0400 Respiratory rate 18 /min MD Viktor Sotelo Work Phone: [facility] 01-20-2022 19:14-0400 SaO2% (BldA) [Mass fraction] 100 % MD Viktor Sotelo Work Phone: [facility] 01-20-2022 19:14-0400 Systolic blood pressure 107 mm[Hg] MD Viktor Sotelo Work Phone: [facility] 01-20-2022 14:29-0400 Body temperature 98.4 [degF] MD Viktor Sotelo Work Phone: [facility] 01-20-2022 13:07-0400 Body height 167.64 cm MD Viktor Sotelo Work Phone: [facility] 01-20-2022 13:07-0400 Body weight 102.4 kg MD Viktor Sotelo Work Phone: [facility] 01-14-2022 10:20-0400 Diastolic blood pressure 74 mm[Hg] Viktor Sotelo Work Phone: [facility] [address] DO Work Phone: 01-14-2022 10:20-0400 Heart rate 65 /min Viktor Sotelo Work Phone: [facility] [address] DO Work Phone: 01-14-2022 10:20-0400 Systolic blood pressure 110 mm[Hg] Viktor Sotelo Work Phone: [facility] [address] DO Work Phone: 01-14-2022 10:19-0400 Body height 167.64 cm Viktor Sotelo Work Phone: [facility] [address] DO Work Phone: 01-14-2022 10:19-0400 Body mass index (BMI) [Ratio] 36.68 kg/m2 Viktor Sotelo Work Phone: [facility] [address] DO Work Phone: 01-14-2022 10:19-0400 Body surface area Derived from formula 2.11 m2 Viktor Sotelo Work Phone: [facility] [address] DO Work Phone: 01-14-2022 10:19-0400 Body weight 103.08 kg Viktor Sotelo Work Phone: [facility] [address] DO Work Phone: 12-11-2021 07:30-0400 Body temperature 98.4 [degF] MD Viktor Sotelo Work Phone: [facility] 12-11-2021 07:30-0400 Diastolic blood pressure 66 mm[Hg] MD Viktor Sotelo Work Phone: [facility] 12-11-2021 07:30-0400 Heart rate 86 /min MD Viktor Sotelo Work Phone: [facility] 12-11-2021 07:30-0400 Respiratory rate 16 /min MD Viktor Sotelo Work Phone: [facility] 12-11-2021 07:30-0400 SaO2% (BldA) [Mass fraction] 95 % MD Viktor Sotelo Work Phone: [facility] 12-11-2021 07:30-0400 Systolic blood pressure 128 mm[Hg] MD Viktor Sotelo Work Phone: [facility] 12-10-2021 15:45-0400 Body height 167.64 cm MD Viktor Sotelo Work Phone: [facility] 12-09-2021 14:00-0400 Body mass index (BMI) [Ratio] 35.4 kg/m2 MD Viktor Sotelo Work Phone: [facility] 12-09-2021 09:00-0400 Body weight 99.75 kg MD Viktor Sotelo Work Phone: [facility] 04-30-2021 13:15-0500 Body height 167.64 cm Viktor Sotelo Work Phone: [facility]Umitostyrxsg[facility]NOY Work Phone: 04-30-2021 13:15-0500 Body mass index (BMI) [Ratio] 31.47 kg/m2 Viktor Sotelo Work Phone: [facility]CR Work Phone: 04-30-2021 13:15-0500 Body surface area Derived from formula 1.98 m2 Viktor Sotelo Work Phone: EJ-Plffbwxwyknh-VGG Work Phone: 04-30-2021 13:15-0500 Body weight 88.45 kg Viktor Sotelo Work Phone: RJ-Tfuijcnwsqxk-SZL Work Phone: 04-30-2021 13:15-0500 Diastolic blood pressure 82 mm[Hg] Viktor Sotelo Work Phone: MX[facility]Nattzieyvzqo-BDJ Work Phone: 04-30-2021 13:15-0500 Heart rate 70 /min Viktor Sotelo Work Phone: WD-Azmkwgbqdroi-DCQ Work Phone: 04-30-2021 13:15-0500 Respiratory rate 18 /min Viktor Sotelo Work Phone: TG-Tkowtxdghknr-JRY Work Phone: 04-30-2021 13:15-0500 Systolic blood pressure 118 mm[Hg] Viktor Sotelo Work Phone: EJ-Wnsigxgdwxer-WWZ Work Phone: 05-25-2020 17:24-0500 SaO2% (BldA) [Mass fraction] 64 % [facility] Hospital Encounters Encounter Date Encounter Type Care Provider Facility Start: 01-02-2025 ambulatory Michael Corcoran ty:[facility] Start: 08-31-2024 End: 08-31-2024 Subsequent hospital visit by physician Alondra [facility] Comment on above: Pacemaker; Sick sinus syndrome (Multi) Start: 08-31-2024 End: 08-31-2024 Patient encounter procedure Viktor Sotelo MD Work Phone: [facility] [address] [place] Work Phone: Start: 08-31-2024 End: 08-31-2024 ambulatory Viktor Sotelo MD Work Phone: [facility] Work Phone: Start: 08-24-2024 End: 08-24-2024 ambulatory Viktor Sotelo Facility:[facility] Start: 08-24-2024 Non-patient / Non-visit Viktor Sotelo MD Work Phone: [facility] Start: 08-23-2024 ambulatory Viktor Sotelo Facility :[facility] Start: 08-23-2024 Registered Recurring Viktor jenkins MD Work Phone: [facility] Start: 07-25-2024 End: 07-25-2024 ambulatory Tete Snell MD Facility: [facility] Start: 07-11-2024 Non-patient / Non-visit Viktor Sotelo MD Work Phone: [facility] Work Phone: Start: 07-11-2024 End: 07-11-2024 ambulatory Tete Snell MD Facility:[facility] Start: 07-05-2024 End: 07-05-2024 ambulatory Michael VIVEROS Facility:[facility] Start: 07-05-2024 End: 07-05-2024 Patient encounter procedure Michael VIVEROS [facility] Start: 07-05-2024 Non-patient / Non-visit Viktor Sotelo MD Work Phone: [facility] Work Phone: Start: 07-04-2024 End: 07-04-2024 Patient encounter procedure Viktor Sotelo MD Work Phone: [facility]CT Scan [address] [place] Work Phone: Start: 07-04-2024 End: 07-04-2024 ambulatory Viktor Sotelo MD Work Phone: [facility] Work Phone: Start: 06-27-2024 End: 06-27-2024 ambulatory Tete Snell MD Facility:[facility] Start: 06-21-2024 Registered Recurring Viktor jenkins MD Work Phone: [facility] Start: 06-10-2024 End: 06-10-2024 Patient encounter procedure Viktor Sotelo MD Work Phone: [facility] Work Phone: Start: 06-02-2024 End: 06-02-2024 ambulatory ESTELA E SHELDON Facility:[facility] Start: 06-02-2024 End: 06-02-2024 Patient encounter procedure ESTELA E SHELDON [facility] [place] Start: 06-02-2024 Non-patient / Non-visit Viktor Sotelo MD Work Phone: [facility] Work Phone: Start: 05-30-2024 End: 05-30-2024 Patient encounter procedure Viktor Soteol MD Work Phone: [facility]Ultrasound [facility] [place] Work Phone: Start: 05-30-2024 End: 05-30-2024 ambulatory Estela E Sheldon Facility:[facility] Start: 05-30-2024 End: 05-30-2024 ambulatory ESTELA E SHELDON [facility] Start: 05-30-2024 End: 05-30-2024 Patient encounter procedure ESTELA E SHELDON [facility] [place] Start: 05-25-2024 End: 05-25-2024 ambulatory RITA Helms [facility] Start: 05-25-2024 End: 05-25-2024 Subsequent hospital visit by physician Alond[facility] Comment on above: Pacemaker; Sick sinus syndrome (Multi) Start: 05-03-2024 End: 05-03-2024 ambulatory ESTELA E SHELDON Facility:[facility] Start: 05-03-2024 End: 05-03-2024 Patient encounter procedure ESTELA E SHELDON [facility] Start: 02-10-2024 End: 02-10-2024 ambulatory [facility] Start: 02-10-2024 End: 02-10-2024 Subsequent hospital visit by physician Alondra Device Remote [facility] Comment on above: Pacemaker; Sick sinus syndrome (Multi) Start: 11-12-2023 End: 11-12-2023 ambulatory MD Viktor Sotelo Work Phone: [facility] Work Phone: Start: 11-12-2023 End: 11-12-2023 Patient encounter procedure MD Viktor Sotelo Work Phone: [facility] Work Phone: Start: 11-09-2023 Registered Recurring MD Viktor Sotelo Work Phone: [facility] Start: 11-04-2023 End: 11-04-2023 ambulatory [facility] Start: 11-04-2023 End: 11-04-2023 Subsequent hospital visit by physician Alondra Device Remote [facility] Comment on above: Pacemaker; Sick sinus syndrome (Multi) Start: 10-29-2023 End: 10-31-2023 Evaluation and management of inpatient VIKTOR SOTELO [facility] Start: 10-29-2023 Non-patient / Non-visit MD Viktor Sotelo Work Phone: [facility]ician [facility] Work Phone: Start: 10-28-2023 Non-patient / Non-visit MD Viktor Sotelo Work Phone: [facility] Work Phone: Start: 10-27-2023 Non-patient / Non-visit MD Viktor Sotelo Work Phone: [facility] Work Phone: Start: 10-26-2023 Non-patient / Non-visit MD Viktor Sotelo Work Phone: [facility] Work Phone: Start: 07-29-2023 End: 07-29-2023 Subsequent hospital visit by physician Alondra Device Remote [facility] Comment on above: Pacemaker; Sick sinus syndrome (CMS/HCC) Start: 04-28-2023 End: 04-28-2023 Patient encounter procedure ESTELA CHUNG [facility] Start: 04-24-2023 End: 04-24-2023 Subsequent hospital visit by physician Alondra Device Remote [facility] Comment on above: Pacemaker; Sick sinus syndrome ([facility]/HCC) Start: 01-21-[address] Viktor Sotelo Facility:[id number] Start: 01-21-2023 End: 01-21-2023 ambulatory MD Viktor Sotelo Work Phone: [facility] Work Phone: Start: 01-21-2023 End: 01-21-2023 Patient encounter procedure MD Viktor Sotelo Work Phone: [facility]-MRI Main [place] Work Phone: Start: 01-20-2023 Current tobacco non-user cad cap copd pv dm Viktor Sotelo Work Phone: [facility] [address] DO Work Phone: Start: 01-20-[address] Viktor Sotelo Facility:[id number] Start: 12-19-[address] Viktor Sotelo Facility:[id number] Start: 12-19-2022 End: 12-19-2022 ambulatory MD Viktor Sotelo Work Phone: [facility] Work Phone: Start: 12-19-2022 End: 12-19-2022 Patient encounter procedure MD Viktor Sotelo Work Phone: [facility]-Pacemaker Check Start: 12-11-2022 End: 12-15-2022 Evaluation and management of inpatient MD Viktor Sotelo Work Phone: [facility]-[address] [place] [address] Work Phone: Start: 12-09-2022 End: 12-09-2022 Patient encounter procedure Michael Johnson FEL[facility] Start: 11-03-2022 Registered Recurring MD Viktor Sotelo Work Phone: [facility]- Credible Start: 10-28-2022 End: 11-01-2022 Evaluation and management of inpatient MD Viktor Sotelo Work Phone: [facility]-[address] [place] [address] Work Phone: Start: 10-28-2022 Registered Recurring MD Viktor Sotelo Work Phone: [facility] Start: 10-21-[address] Viktor Sotelo Facility:[id number] Start: 10-18-2022 End: 10-18-2022 Emergency department patient visit MD Viktor Sotelo Work Phone: [facility]-Emergency Room Work Phone: Start: 10-16-2022 End: 10-16-2022 ambulatory KRISTA HARVEY . Facility: Start: 09-28-2022 End: 09-28-2022 Emergency department patient visit MD Viktor Sotelo Work Phone: [facility]-Emergency Room Work Phone: Start: 09-03-2022 End: 09-07-2022 Evaluation and management of inpatient MD Viktor Sotelo Work Phone: [address] Work Phone: Start: 09-03-2022 End: 09-03-2022 Patient encounter procedure ESTELA CHUNG [facility] Start: 08-11-2022 End: 08-13-2022 Evaluation and management of inpatient MD Viktor Sotelo Work Phone: [facility]-[address] [place] Work Phone: Start: 08-05-2022 End: 08-05-2022 ambulatory MD Viktor Sotelo Work Phone: [facility] Work Phone: Start: 08-05-2022 End: 08-05-2022 Patient encounter procedure MD Viktor Sotelo Work Phone: [facility] Labor - O/P Start: 08-01-2022 End: 08-02-2022 Evaluation and management of inpatient MD Viktor Sotelo Work Phone: [facility] Labor and Delivery Work Phone: Start: 07-25-2022 End: 07-25-2022 ambulatory MD Viktor Sotelo Work Phone: [facility] Work Phone: Start: 07-25-2022 End: 07-25-2022 Departed Referred MD Viktor Sotelo Work Phone: [facility]-Lab Main [place] Work Phone: Start: 07-22-2022 Current tobacco non-user cad cap copd pv dm Viktor Sotelo Work Phone: [facility] [address] DO Work Phone: Start: 07-22-[address] Viktor Sotelo Facility:[id number] Start: 07-15-2022 End: 07-17-2022 Evaluation and management of inpatient MD Viktor Sotelo Work Phone: [facility] Work Phone: Start: 07-09-2022 End: 07-09-2022 ambulatory MD Viktor Sotelo Work Phone: [facility] Work Phone: Start: 07-09-2022 End: 07-09-2022 Discharged Recurring MD Viktor Sotelo Work Phone: [facility]-Infusion Therapy - O/P Work Phone: Start: 06-30-2022 End: 06-30-2022 ambulatory MD Viktor Sotelo Work Phone: [facility] Work Phone: Start: 06-30-2022 End: 06-30-2022 Patient encounter procedure MD Viktor Sotelo Work Phone: [facility]-Lab Main [place] Work Phone: Start: 06-26-2022 End: 06-26-2022 ambulatory MD Viktor Sotelo Work Phone: [facility] Work Phone: Start: 06-26-2022 End: 06-26-2022 Patient encounter procedure MD Viktor Sotelo Work Phone: [facility]-3 [place] Labor - O/P Start: 06-25-2022 End: 06-25-2022 Emergency department patient visit MD Viktor Sotelo Work Phone: [facility]-Emergency Room Work Phone: Start: 06-25-2022 Registered Recurring MD Viktor Sotelo Work Phone: [facility]-Infusion Therapy - O/P Work Phone: Start: 04-28-2022 End: 04-29-[address] VIKTOR SOTELO Facility:[id number] Start: 04-17-[address] Viktor Sotelo Facility:[id number] Start: 02-14-2022 Chart Update Viktor Sotelo Work Phone: [facility] [address] DO Work Phone: Start: 02-13-2022 Patient encounter procedure Viktor Sotelo Work Phone: [facility] [address] [place] Work Phone: Start: 02-13-[address] Rita Ortega ne [place] Facility:[id number] Start: 01-20-2022 End: 01-20-2022 Emergency department patient visit MD Viktor Sotelo Work Phone: [facility]-Emergency Room Start: 01-14-2022 Current tobacco non-user cad cap copd pv dm Viktor Sotelo Work Phone: [facility] [address] DO Work Phone: Start: 12-18-2021 ambulatory Clemente simmons MD Work Phone: General Surgery Comment on above: Port Start: 12-16-2021 End: 12-16-2021 Patient encounter procedure MD Viktor Sotelo Work Phone: [facility]-Lab Main [place] Start: 12-08-2021 End: 12-11-2021 Evaluation and management of inpatient MD Viktor Sotelo Work Phone: [facility]-[address] [place] [address] Start: 09-18-2021 Telephone encounter Clemente Bernstein MD Work Phone: Gastroenterology Comment on above: Patient Update Start: 07-19-2021 Result Review Viktor Sotelo Work Phone: [id number] Work Phone: Start: 04-30-2021 Current tobacco non-user cad cap copd pv dm Viktor Sotelo Work Phone: [id number] Work Phone: Start: 03-20-2021 Patient encounter procedure Viktor Sotelo Work Phone: [facility]Dk[facility] 3200 Work Phone: Start: 01-24-2020 End: 01-25-2020 Patient encounter procedure [facility] Start: 01-24-2020 End: 01-24-2020 Subsequent hospital visit by physician [facility] Schedule [facility] Comment on above: Arrived Procedures Date Procedure Procedure Detail Performing Clinician Start: 08-31-2024 MRI of cervical spine without contrast Viktor Sotelo MD Work Phone: Start: 07-04-2024 Computed tomography of abdomen and pelvis with contrast Viktor Sotelo MD Work Phone: Start: 05-30-2024 Ultrasonography of bilateral kidneys Viktor Sotelo MD Work Phone: Start: 11-04-2023 CARDIAC DEVICE CHECK - REMOTE RITA OLIVIA Start: 04-24-2023 Rem interrog pm/ldls pm/ids <90 d tech review Rita Olivia MD Work Phone: Start: 01-21-2023 MRI of abdomen with contrast MD Viktor noriega Work Phone: Start: 12-19-2022 Plain chest X-ray MD Viktor Sotelo Work Phone: Start: 12-11-2022 Urine culture MD Viktor Sotelo Work Phone: Start: 12-09-2022 Cystourethroscopy with dilation of urethral stricture ESTELA SHELDON Start: 10-28-2022 Urine culture MD Viktor Sotelo [...] MD Viktor Sotelo Work Phone: Start: 02-13-2022 Echocardiography Viktor Sotelo Work Phone: Start: 02-19-2021 Cystourethroscopy with dilation of urethral stricture ESTELA CHUNG Start: 01-24-2020 Sleep std airflow hrt rate&o2 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 Start: 07-10-2019 Adult depression screening assessment Clemente Eng MD Work Phone: Appendectomy Viktor Sotelo Work Phone: Appendectomy ESTELA DELVALLERY Cholecystectomy Viktor sanches Work Phone: Cholecystectomy ESTELA GALLEGOS H/O: surgery History of gastr ic surgery [...] 2) Zoste r Vaccines (1 of 2) [facility] Start: 02-21-2024 COVID-19 Vaccine ( season) COVID-19 Vaccine ( season) [facility] Start: 02-21-2024 Influenza vaccination [facility] Start: 07-07-2023 FUV, Provider: Riat Olivia, Status: Pen, Time: 8:40 AM FUV, Provider: Rita Olivia, Status: Pen, Time: 8:40 AM -[facility] [address] DO Work Phone: Start: 07-07-2023 End: 07-07-2023 Patient encounter procedure 07/07/2023 8:40 AM EST Office Visit [facility] [address] [place] [address] Rita Olivia MD [address] [facility] [address] [place], [place] [id number] [facility] Start: 02-20-2023 COVID-19 Vaccine ( season) COVID-19 Vaccine ( season) [facility] Start: 02-20-2023 Influenza vaccination Influenza Vacc ine (#1) [facility] Start: 01-20-2023 FUV, Provider: Rita Olivia, Status: Pen, Time: 8:40 AM FUV, Provider: Rita Olivia, Status: Pen, Time: 8:40 AM -[facility] [address] DO Work Phone: Start: 01-20-2023 Patient encounter procedure [id number], Provider: [facility], Status: Pen, Time: 8:00 AM -[facility] [address] DO Work Phone: Start: 12-15-2022 [facility] Start: 12-11-2022 Referral to Quality Technician [employer] [facility] Start: 12-11-2022 Hospital admission [facility] Start: 12-11-2022 Bacteria identified in Urine by Culture Urine Culture [facility] Start: 11-01-2022 [facility] Start: 10-31-2022 Administration of prophylactic treatment [facility] Start: 2022 Screening for malign ant neoplasm of breast Mammogram [facility] Start: 10-29-2022 Referral to clinical mail list librarian [facility] Start: 10-28-2022 Referral to Quality Technician [employer] [facility] Start: 10-28-2022 Hospital admission [facility] Start: 10-28-2022 Bacteria identified in Urine by Culture [facility] Start: 09-28-2022 CT angiography of thorax CT an ignacia chest PE protocol [facility] Start: 09-28-2022 CT Chest [facility] Start: 09-28-2022 Plain chest X-ray XR chest 2V* [facility] Start: 09-28-2022 XR Chest 2 Views [facility] Start: 09-28-2022 Bacteria identified in Urine by Culture [facility] Start: 09-07-2022 [facility] Start: 09-03-2022 Hospital admission [facility] Start: 08-13-2022 [facility] Start: 08-12-2022 Referral to psychiatrist [facility] Start: 08-12-2022 Hospital admission [facility] Start: 08-11-2022 Extraction of Produc ts of Conception, Low Forceps, Via Natural or Artificial Opening Extraction of Products of Conception, Low Forceps, Via Natural or Artificial Opening [facility] Start: 08-05-2022 [facility] Start: 08-02-2022 [facility] Start: 08-02-2022 Referral to neurologist [facility] Start: 08-02-2022 Hospital admission [facility] Start: 08-02-2022 [facility] Start: 08-01-2022 Hospital admission [facility] Start: 08-01-2022 Bacteria identified in Urine by Culture [facility] Start: 07-25-2022 Group B Streptococcu s Culture Group B Streptococcus Culture [facility] Start: 07-22-2022 FUV, Provider: Rita Olivia, Status: Pen, Time: 9:40 AM FUV, Provider: Rita Olivia, Status: Pen, Time: 9:40 AM [facility] Work Phone: Start: 07-17-2022 [facility] Start: 07-15-2022 Bacteria identified in Urine by Culture [facility] Start: 07-15-2022 Referral to Quality Technician [employer] [facility] Start: 07-15-2022 Sleep disorder assessment [facility] Start: 07-15-2022 Hospital admission [facility] Start: 06-26-2022 [facility] Start: 06-26-2022 Hospital admission [facility] Start: 06-26-2022 [facility] Start: 06-26-2022 Bacteria identified in Urine by Culture [facility] Start: 06-25-2022 Bacteria identified in Urine by Culture [facility] Start: 02-20-2022 Influenza vaccination INFLUENZA (#1) [facility] Start: 02-13-2022 ECHO, Provider: EDSON DUNN [facility] ULTRASOUND 01,[id number], Status: Pen, Time: 7:45 AM ECHO, Provider: ЕКАТЕРИНА [facility] ULTRASOUND 01,[id number], Status: Pen, Time: 7:45 AM [facility] Work Phone: Start: 12-11-2021 [facility] Work Phone: Start: 12-10-2021 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 [facility] Work Phone: Start: 12-09-2021 Hospital admission [facility] Work Phone: Start: 07-09-2021 Patient encounter procedure FUVPACEMKR, Provider: [facility]CHRISSIE, Status: Pen, Time: 10:20 AM [facility] C Work Phone: Start: 06-19-2021 EPVNEHALINA, Provider: Dennis Almendarez, Status: Pen, Time: 9:00 AM EPVNEURO, Provider: Dennis Almendarez, Status: Pen, Time: 9:00 AM [facility] [address] Work Phone: Start: 02-20-2021 Influenza vaccination INFLUENZA (#1) [facility] Start: 07-10-2020 Adult depression screening assessment DEPRESSION SCREENING [facility] Start: 02-21-2020 Influenza vaccination Flu vaccine (# 1) [place], [place] Start: 2018 HPV TESTING HPV TESTING [facility] Start: 2018 PAP TESTING PAP TESTING [facility] Start: 05-17-2009 MMR Vaccines (1 of 1 - Standard series) MMR Vaccines (1 of 1 - Standard series) [facility] Start: 05-17-2009 Varicella vaccination U [facility] Start: 2004 DTaP/Tdap/Td Vaccine s (1 - Tdap) DTaP/Tdap/Td Vaccines (1 - Tdap) [facility] Start: 10-31-2003 Screening for malign ant neoplasm of cervix [facility] Start: 2001 DTaP/Tdap/Td vaccine (1 - Tdap) DTaP/Tdap/Td vaccine (1 - Tdap) [place] Start: 2001 Hepatitis B Vaccines (1 of 3 - 19+ 3-dose series) Hepatitis B Vaccines (1 of 3 - 19+ 3-dose series) [facility] Start: 2001 Urine microalbumin profile DTAP,TDAP,TD (1 - Tdap) [facility] Start: 2000 Diabetes mellitus screening Diabetes Screening [facility] Start: 2000 HEPATITIS C SCREENING HEPATITIS C [facility] Start: 2000 Hepatitis C screening Hepatitis C [facility] Start: 2000 HIV SCREENING HIV SCREENING [facility] Start: 1997 HIV screening HIV screen [place], [place] Start: 10-31-1987 COVID-19 VACCINE (1) COVID-19 VACCIN E (1) [facility] Start: 10-31-1983 Varicella vaccine (1 of 2 - 2-dose childhood series) Varicella vaccine (1 of 2 - 2-dose childhood series) [facility] Start: 05-02-1983 COVID-19 VACCINE (#1) COVID-19 VACCI NE (#1) [facility] Start: 1982 Hepatitis B Vaccines (1 of 3 - 3-dose series) Hepatitis B Vaccines (1 of 3 - 3-dose series) [facility] Start: 1982 [facility] screening [facility] Start: 1982 Lipid panel Lipid Panel [facility] Start: 1982 Medicare Annual Well ness Visit Medicare Annual Wellness Visit (AWV) [facility] End: 07-29-2023 Cardiac Device Check - Remote [...] Occurrenc es starting 02/10/2024 until 02/10/2024 End: 08-31-2024 Cardiac Device Check - Remote [facility] Service Area Work Phone: Comment on above: Once for 1 Occurrenc es starting 08/31/2024 until 08/31/2024 End: 01-24-2020 Home Sleep Study Home Sleep Study Sleep Center Routine One Time for 1 Occurrences starting 01/24/2020 until 01/24/2020 [facility] Comment on above: One Time for 1 Occur rences starting 01/24/2020 until 01/24/2020 Patient Education [facility] Work Phone: Patient referral [facility] Work Phone: Reagin Ab [Presence] in Serum by RPR [facility] Streptococcus agalac tiae [Presence] in Unspecified specimen by Organism specific culture [facility] Immunizations Immunization Date Immunization Notes Care Provider Carlita arthur 05-27-2020 influenza virus vaccine, unspecified formulation ESTELA CHUNG [facility] 05-27-2020 influenza, injectabl e, quadrivalent, preservative free Clemente Eng MD Work Phone: [facility] 05-22-2020 influenza virus vaccine, unspecified formulation ESTELA SHELDON [facility] 08-29-2019 influenza virus vaccine, unspecified formulation Viktor Sotelo Work Phone: [facility] Work Phone: 04-10-2019 influenza virus vaccine, unspecified formulation ESTELA SHELDON [facility] 04-10-2019 influenza, injectabl e, quadrivalent, preservative free Clemente Eng MD Work Phone: [facility] 04-19-2009 novel [id number], preservative-free, injectable Viktor Sotelo Work Phone: [facility] Work Phone: Payers Date Payer Category Payer Private Health Insurance 2022 Medicaid [id number] 2022 Self-pay [id number] 2021 Medicare AETNA MEDICARE A ETNA MEDICARE ASSURE [id number] 2021-Present [address] [place] [address] [id number] 2021 Medicare (Managed Care) AETHERMILO MARTEL [id number] 2021 Private Health Insurance [id number] 2020 Medicaid MEDICAID [facility] MEDICAID [id number] 2020-Present [phone] [address] [place] [address] Medicaid [id number] 2020 Medicare MEDICARE MEDICAR E A AND B [id number] 2020-Present [phone] [address] [address] [place] [address] Medicare [id number] 2019 Unknown [id number] .[id number] 1982 Unknown [id number] 2.16.840.1.333373.3.579.2.1 74 1982 Unknown [id number] 2.16.840.1.076479.3.579.2.5 93 1982 Unknown [id number] 2.16.840.1.166891.3.579.2.5 93 1982 Unknown [id number] 2.16.840.1.811759.3.579.2.1 1982 Unknown [id number] 2.16.840.1.234661.3.579.2.1 1982 Unknown [id number] 2.16.840.1.417495.3.579.2.1 1982 Unknown [id number] 2.16.840.1.429675.3.579.2.1 1982 Unknown [id number] 2.16.840.1.032214.3.579.2.1 1982 Unknown [id number] 2.840.1.532678.3.579.2.3 1982 Unknown [id number] 2.840.1.692882.3.579.2.3 1982 Unknown [id number] 2.840.1.499258.3.579.2.3 1982 Unknown [id number] 2.840.1.948556.3.579.2.3 1982 Unknown [id number] 2.840.1.819387.3.579.2.1 1982 Unknown [id number] 2840.1.733965.3.579.2.7 1982 Unknown [id number] 2840.1.497389.3.579.2.7 1982 Unknown [id number] 2.840.1.419703.3.579.2.7 1982 Unknown [id number] 2.840.1.186196.3.579.2.7 1982 Unknown [id number] 2.16840.1.791555.3.579.2.7 1982 Unknown [id number] 2.16840.1.570920.3.579.2.1 1982 Unknown [id number] 2.16840.1.135078.3.579.2.1 1982 Unknown [id number] 2.16840.1.613075.3.579.2.1 1982 Unknown [id number] 2.16840.1.449282.3.579.2.1 [facility] 1982 Unknown [id number] 2.840.1.914020.3.579.2.1 [facility] 1982 Unknown [id number] 2.840.1.437482.3.579.2.1 [facility] 1982 Unknown [id number] 2.840.1.266098.3.579.2.1 [facility] 1957 Medicaid [id number] 1957 Medicare [id number] Medicare [id number] Unknown Unknown [id number] 2840.1.232749.3.579.2.5 31 Unknown [id number] 2840.1.542299.3.579.2.5 31 Unknown [id number] 2840.1.356593.3.579.2.5 31 Unknown [id number] 20.1.353849.3.579.2.5 31 Unknown [id number] 2840.1.308095.3.579.2.5 31 Social History Date Type Detail [facility] [place] [place] Start: 1980 Sex Assigned At Not on file [place], [place] Start: 06-08-2023 Non-smoker Non-smoker [facility] [address] Work Phone: Start: 10-21-2013 End: 12-12-2022 Tobacco smoking status NHIS Never smoked tobacco [facility] Work Phone: Start: 10-21-2013 End: 06-08-2023 Tobacco use and exposure Smokeless tobacco non-user [facility] Work Phone: Start: 11-09-2020 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 intake 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 (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) [facility] Start: 10-24-2019 History SDOH Financial 5 [facility] Start: 10-24-2019 History SDOH Food Worry 1 [facility] Start: 10-24-2019 History SDOH Transpo rt Med 2 [facility] Start: 1980 Sex Assigned At Female C [facility] Tobacco smoking status Never [facility]u [facility] Start: 06-08-2023 Sex Assigned At Female F [facility] Tobacco smoking stat us NHIS Tobacco smoking consumption unknown [facility] Work Phone: Start: 06-08-2023 Alcohol intake Ex-drinker (finding) [facility] Work Phone: Start: 07-05-2024 End: 09-01-2024 Sex Female (finding) [facility] Medical Equipment Procedure Code Equipment Code Equipment Origin al Text Equipment Identifier Dates [facility] 8tc/52 [id number] Start: 04-11-2020 [facility] 8tc/46 [id number] Start: 04-11-2020 [facility] Assurity Mri [id number] Start: 04-11-2020 Tray Port-A-Cath Ii 7.8fr 2.6mm 1.6mm Polysulfone Titanium Polyurethane 76 - [id number] Start: 07-22-2018 Corflo Feeding T ube 10f 60cm [id number] Start: 08-17-2018 Kit Ponsky 20fr Silicone Peg Pull Deluxe Kit Non Safety Sterile - [id number] Start: 01-31-2019 Tube Claudio Secur-L ok 20fr Standard J Silicone Jejunostomy Trimmable Distal - [id number] Start: 2019 Tube Claudio Secur-L ok 18fr Standard Silicone Natural Rubber Jejunostomy - [id number] Start: 07-11-2019 Kit Endovive 20f r Xylocaine Silicone Peg Pull Method Ampule Trocar Cannula - [id number] Start: 10-25-2019 Goals Date Patient Goal Desired Activity /State Functional Status Date Assessment Result Facility 07-05-2024 Functional Status N/A [facility] 04-28-2023 Functional Status N/A [facility] 12-15-2022 Functional status Patient at Baseline [facility] Work Phone: 12-09-2022 Functional Status N/A [facility] 11-01-2022 Functional status Patient at Baseline [facility] Work Phone: 09-07-2022 Functional status Patient at Baseline [facility] Work Phone: 09-03-2022 Functional Status N/A [facility] 08-13-2022 Functional status Patient at Baseline [facility] Work Phone: 07-17-2022 Functional status Patient at Baseline [facility] Work Phone: 12-11-2021 Functional status Patient at Baseline [facility] Work Phone: Mental Status Date Assessment Result Facility 12-15-2022 Cognitive function Cognitive Sta tus Patient at Baseline [facility] Work Phone: 11-01-2022 Cognitive function Cognitive Sta tus Patient at Baseline [facility] Work Phone: 09-07-2022 Cognitive function Cognitive Sta tus Patient at Baseline [facility] Work Phone: 08-13-2022 Cognitive function Cognitive Sta tus Patient at Baseline [facility] Work Phone: 07-17-2022 Cognitive function Cognitive Sta tus Patient at Baseline [facility] Work Phone: 12-11-2021 Cognitive function Cognitive Sta tus Patient at Baseline [facility] Work Phone: Clinical Notes 06-07-2019 to 07-05-2024 [...] Up Care 06/21/2024 10:16:19 With:Michael VIVEROS Address: [address] [place], [place] [id number] Business (1) When:01/02/2025 13:36:19 Comments:With Martha Crawford [facility] 07-05-2024 Evaluation + Plan note Extrac nneka [...] antibiotic coverage, Follow up arranged. Addendum by FELICE PATINO, Alex Johnson on July 05, 2024 13:40 EST Urethra was dilated from 22-30 Serbian wi th [place] sounds. Future Appointments Appointment Date:01/02/2025 08:20:00 AM Scheduled Provider:ESTELA CHUNG PA-C Location:[facility] Appointment Type:URO Office Visit [facility] 01-14-2025 NotePatient Education Custom Cystoscopy with Urethral [...] you have a fever over 100 degreesFisher [facility] 07-04-2024 [facility]iology [facility] [place] [address] [place], [place] [id number] CT Scan Report Signed Patient: Maricarmen Anderson MR#: [id number] : 1980 Acct:[id number] Age/Sex: 43 / F ADM Date: 5 Loc: CT Room: Type: REG CLI Attending Dr: Michael Viveros MD Copies to: [...] Oro Jr., D.O.07/04/2024 2:58 PM Dictation Location: [place] [address] Transcribed By: [facility] 07/04/24 145 Dictated By: Mitchel Oro Jr, DO 07/04/24 1455 Signed By: 07/04/24 1458 [facility]12-20-2024 Evaluation note* Diagnosis Onset Date Resolution Status Admit Date Cervical radicular pain acute D ec2023 9:26am Gastroparesis acute June 102023 9:26am [facility] Work Phone: 1(480) 797-845812-12-2024 Hospital Discharge instructions Patient Education 06/02/2024 15:53:20 [...] Follow these instructions at home: Medicines Take evpb-dvr-cztvrgf and prescription medicines only as told by [...] provider. Document Revised: 02/27/2021 Document Reviewed: 02/27/2021 ElseShowClix Patient Education 2023 [employer]. Follow Up Care 05/27/2024 13:08:43 With:SHELDON RILEY, ESTELA Leone, URL Address: [address] [address] When: Unknown [facility] 12-12-2024 NotePatient Education Obstetrics and Gynecology Acute [...] these instructions at home: Medicines ??? Take ddba-dft-doczrbh and prescription medicines only as told by [...] provider. Document Revised: 02/27/2021 Document Reviewed: 02/27/2021 Elsevier Patient Education ? 2023 [employer].[facility] 05-25-2024 Hospital Discharge instructions Follow Up Care 05/25/2024 15:26:22 With:ESTELA CHUNG PA-C, URL Address: [facility] [address] [place] [address] When: Unknown [facility] [place] [id number] Hospital Discharge instructions Patient Education 04/28/2023 10:54:08 Urinary Tract Infection, Adult, Wehp-cj-Xzgj Urinary Tract Infection, Adult A urinary tract [...] Follow these instructions at home: Medicines Take mssx-vlc-jdlwnen and prescription medicines only as told by [...] provider. Document Revised: 01/18/2021 Document Reviewed: 01/18/2021 TuneStars Patient Education 2022 [employer]. Follow Up Care 01/21/2023 14:42:53 With:ESTELA CHUNG PA-C, URL Address: [facility] [address] [facility] [place] [address] [phone] When: Unknown Comments:1 yr w/ CRESCENCIO [facility] Petey 06-26-2023 Discharge summary Author Nimesh regalado [facility] December 15, 2022 9:25am Note Date/Time December 15, 2022 9:24 am [facility] [address] [place] [address] Discharge Summary Signed Patient: Maricarmen Anderson MR#: [id number] : 1980 Acct:[id number] Age/Sex: 42 / F Adm Date: 3 Loc: Room: [address] [place] [address]: Eduardo Swain MD Copies to: [...] or stop treatment, but to call Mobile 2d2c, 911 or come to the nearest emergency [...] Q28D promethazine 12.5 mg suppository 12.5 mg UT Q6H PRN (Reason: Nausea And Vomiting) Patient [...] 15 Days Qty: 30 0RF Follow Up: [facility] [Outside] [facility] [Outside] Viktor Sotelo MD [Primary Care Provider] - (Call your primary provider for any medical needs. ) Documented By: Nimesh Cerda MD 3 09 Signed By: <Electronically signed by Nimesh Cerda MD> 12/15/22924 [facility] Work Phone: 1(270) 205-334906-25-2023 Progress note Author Nimesh regalado [facility] December 14, 2022 7:31am Note Date/Time December 14, 2022 7:29 am [facility] [address] [place] [address] Psychiatry Progress Note Signed Patient: Maricarmen Anderson MR#: [id number] : 1980 Acct:[id number] Age/Sex: 42 / F Adm Date: 3 Loc: Room: [address] [place] [address] Type : ADM IN Attending Dr: Eduardo [...] signed by Nimesh Cerda MD> 12/14/22 0731 [facility] Work Phone: 1(269) 369-553406-24-2023 Progress note Author Nimesh regalado [facility] December 13, 2022 8:43am Note Date/Time December 13, 2022 6:53 am [facility] [address] [place] [address] Psychiatry Progress Note Signed Patient: Maricarmen Anderson MR#: [id number] : 1980 Acct:[id number] Age/Sex: 42 / F Adm Date: 3 Loc: Room: [address] [place] [address] Type : ADM IN Attending Dr: Eduardo [...] explained Documented By: Nimesh Cerda MD 3 53 Signed By: <Electronically signed by Nimesh Cerda MD> 12/13/22 0843 [facility] Work Phone: 1(461) 738-832706-23-2023 History and physical note Author Eduardo Swain [facility] December 12, 2022 10:19am Note Date/Time December 12, 2022 10:1 9am [facility] [address] [place] [address] Psychiatry H&P Signed Patient: Maricarmen Anderson MR#: [id number] : 1980 Acct:[id number] Age/Sex: 42 / F Adm Date: 3 Loc: Room: [address] [place] [address] Type: ADM IN Attending Dr: Eduardo Swain [...] promethazine 12.5 mg rectal suppository 12.5 mg UT Q6H PRN Nausea And Vomiting 12/11/22 [History [...] cloudy A Urine pH 6.0 Ur Specific Barnet 1.015 Urine Protein Negative Urine Glucose (UA) [...] signed by Eduardo Swain MD> 12/12/22 1019 [facility] Work Phone: 1(812) 273-900606-20-2023 Hospital Discharge instructions Patient Education 12/09/2022 09:42:03 [...] With:Michael VIVEROS Address: [facility] [address], [place] [address]- Business (1) When:06/10/2023 09:41:40 Comments:Patient is to get scheduled for a CT abdomen and pelvis today [facility]05-13-2023 Discharge summary Author Nimesh regalado [facility] November 01, 2022 9:36am Note Date/Time November 01, 2022 9:34a m [facility] [address] [place], [place] [id number] Discharge Summary Signed Patient: Maricarmen Anderson MR#: [id number] : 1980 Acct:[id number] Age/Sex: 42 / F Adm Date: 3 Loc: Room: [address] [place] [address]: Toribio Cerda MD Copies to: [...] Creatinine Clear 114.96, Sodium 140, Potassium 4.0, Hzvwxgeo361, Carbon Dioxide 26.4, Anion Gap 10.6, BUN 14, Creatinine 0.82, Est GFR (CKD-EPI) > 60.0, Glucose 74, Calcium 8.8, Vitamin B12 205 11/01/22 06:20: Corrected WBC 5.1, Uncorrected WBC Count 5.1, RBC 3.89, Hgb 12.5, Hct 37.5, MCV 96.5, MCH 32.2, MCHC 33.4, RDW 12.9, Plt Count 184, MPV 7.8,Neut % (Auto) 54.1, Lymph % (Auto) 34.7, [place] % (Auto) 6.1, Eos % (Auto) 4.2, Baso % (Auto) 0.9, Nucleat RBC Rel Count 0.1, Neut # (Auto) 2.8, Lymph # (Auto) 1.8, [place] # (Auto) 0.3, Eos # (Auto) 0.2, [...] Adult (DC), Gastroparesis (Delayed Gastric Emptying) (DC), [facility] DC Instructions Prescriptions: New promethazine [Promethegan] 12.5 mg Suppository 12.5 mg UT Q6H PRN (Reason: Nausea And Vomiting) 15 [...] 30 Days Qty: 1 0RF Follow Up: [facility] [Outside] [facility] [Outside] - 11/11/22 10:00 am (At this appointment you will see the nurse, your counselor, and Dr. Zhang. You will also receive your long acting injection. This appointment will take appoximately 2-1/2 hours. You may bring a snack if you would like. ) [facility] [Outside] (Case Management: You will RECEIVE PHONE CALL on Thursday11/03/22 between the hours of 8:00am and 12:00pm.) Viktor Sotelo MD [Primary Care Provider] - (Call for medical follow-up) Clemente Eng MD [Referring] - (call to schedule follow up appointment with ongoing symptoms of gastroparesis. Our contact with them in hospital indicated you have no current standing appointments with any F physicians. ) Documented By: Nimesh Cerda MD 3 930 Signed By: <Electronically signed by Nimesh Cerda MD> 11/01/22935 [facility] Work Phone: 1(843) 704-716605-12-2023 Progress note Author Afshan Hines [facility] October 31, 2022 2:14pm Note Date/Time October 31, 2022 2:09p m [facility] [address] [place] [address] Hospitalist Progress Note Signed Patient: Maricarmen Anderson MR#: [id number] : 1980 Acct:[id number] Age/Sex: 42 / F Adm Date: 3 Loc: 1S Room: [address] [place] [address] Type: ADM IN Attending Dr: Toribio Cerda [...] 19:16 10/30/22 15:11 Promethazine 12.5 Mg Supp.Rect UT 10/29/23 19:15 12.5 mg Q6H PRN Administration [...] Gastroparesis hx Elaine en y for gastroparesis 2018 N/V, chronic -Patient follows [facility] [place] Eng [phone] -metoclopramide scheduled, prn ondansetron/ promethazine for symptoms -note patient is 2 months ago Chronic conditions 1. Chronic back pain?tizanidine Schizoaffective disorder -Further plan of care per inpatient psychiatric team for psychoactive medicationmanagement/adjustment in psych with therapy Documented By: LI Coleman 3 1407 Signed By: <Electronically signed by LI Hines> 10/31/22 1414 [facility] Work Phone: 1(769) 121-237805-12-2023 Progress note Author Nimesh regalado [facility] October 31, 2022 8:45am Note Date/Time October 31, 2022 8:45a m [facility] [address] [place] [address] Psychiatry Progress Note Signed Patient: Maricarmen Anderson MR#: [id number] : 1980 Acct:[id number] Age/Sex: 42 / F Adm Date: 3 Loc: Room: [address] [place] [address] Type : ADM IN Attending Dr: Toribio [...] Zero. Documented By: Nimesh Cerda MD 3 3863 Signed By: <Electronically signed by Nimesh Cerda MD> 10/31/22 0845 [facility] Work Phone: 1(790) 630-743605-11-2023 Consult note Author Rosendo Holland [facility] 2022 1:42pm Note Date/Time October 29, 2022 3:40p m [facility] [address] [place] [address] Hospitalist Consult Note Signed Patient: Maricarmen Anderson MR#: [id number] : 1980 Acct:[id number] Age/Sex: 41 / F Adm Date: 3 Loc: 1S Room: 9Y3974-5 Type: ADM IN Attending Dr: Toribio Cerda MD Copies to: MD Afshan Goldsmith, ANP-BC MD Rosendo Hsu, DO~ HPI DATE OF [...] added. Patient routinely follows with [facility] at [facility] for this and has upcoming appointment soon [...] negative unless noted below or in HPI [facility] Attestation Statement: The following information was validated with the patient. Vaccinated for COVID-19?: No Medical History (Updated 10/29/22 @ 18:56 by Afshan Hines, ANP-BC) Anemia Bipolar disorder Chiari malformation type I [...] Creatinine Clear 136.41, Sodium 141, Potassium 3.8, Yxtyckac712 H, Carbon Dioxide 24.6, Anion Gap 11.2, [...] % (Auto) 69.0, Lymph % (Auto) 19.9, Monmouth % (Auto) 6.5, Eos % (Auto) 3.9, Baso % (Auto) 0.7, Nucleat RBC Rel Count 0.2, Neut # (Auto) 4.2, Lymph # (Auto) 1.2, [place]mouth # (Auto) 0.4, Eos # (Auto) 0.2, Baso # (Auto) 0.0, Monocyte Dist Width17.88 10/28/22 15:13: Urine Color Dark yellow A, Urine Appearance Clear, Urine pH 6.0,Ur Specific Barnet 1.024, Urine Protein Negative, Urine Glucose (UA) [...] y for gastroparesis 2019 -Patient follows with [facility] GI services on outpatient basis and has [...] signed by Rosendo Holland DO> 10/30/22 1342 [facility] Work Phone: 1(129) 931-984305-11-2023 Progress note Author Nimesh regalado [facility] 2022 11:53am Note Date/Time 2022 9:52a m [facility] [address] [place] [address] Psychiatry Progress Note Signed Patient: Maricarmen Anderson MR#: [id number] : 1980 Acct:[id number] Age/Sex: 42 / F Adm Date: 3 Loc: Room: [address] [place] [address] Type : ADM IN Attending Dr: Toribio [...] <Electronically signed by Nimesh Cerda MD> 10/30/22 1150 [facility] Work Phone: 1(746) 314-757805-10-2023 History and physical note Author Nimesh regalado [facility] October 29, 2022 11:26am Note Date/Time October 29, 2022 10:39 am [facility] [address] [place] [address] Psychiatry H&P Signed Patient: Maricarmen Anderson MR#: [id number] : 1980 Acct:[id number] Age/Sex: 41 / F Adm Date: 3 Loc: Room: [address] [place] [address] Type: ADM IN Attending Dr: Toribio Cerda [...] Appearance Clear Urine pH 6.0 Ur Specific Barnet 1.024 Urine Protein Negative Urine Glucose (UA) [...] <Electronically signed by Nimesh Cerda MD> 10/29/22 1126 [facility] Work Phone: 1(762) 430-665902-11-2023 Consult note Author William Leyva [facility] August 02, 2022 10:49am Note Date/Time August 02, 2022 10:49am [facility] [address] [place] [address] Neurology Consult Note Signed Patient: Maricarmen Anderson MR#: [id number] : 1980 Acct:[id number] Age/Sex: 41 / F Adm Date: 3 Loc: 3E Room: [address] [place] [address] Type: ADM IN Attending Dr: Dustin Cody MD Copies to: DO Viktor Chambers MD Penola Jones, MD-NOMS~ HPI Consult Date: 08/02/22 Contact Center Engineer: William Leyva DO [facility] Vaccinated for COVID-19?: No Medical History Anemia [...] rapidly alternating movements. No limb dysmetria with xodsbr-emxv-vycequ testing. DATA REVIEW: CT head from December 13, 2020 personally reviewed and axially shows a crowded foramen magnum with bilateral cerebellar lingula visible in the foramen magnum. MRI brain February 19, 2020 personally reviewed and shows 6 to 7 mm of bilateral cerebellar tonsillar protrusion through the foramen magnum. MRI cervical spine from November 13, 2020 at [facility] report reviewed and showed 6 to 7 [...] magnet and she gets her imaging at [facility]). I also presume that she is without [...] assisted vaginal delivery under neuraxial blockade. Heather MERRILL, Kapil DURAND, Ashley GORDON, Ej S, Harry G, Shanique AM. Management and outcomes of women with Chiari malformations: A 14 years retrospective case series. Eur J Obstet Gynecol Reprod Biol. 2018 Nov;230:1-5. doi: 10.1016/j.ejogrb.2018.09.006. Epub 2017Mar 01. PMID: 28846899. Alejandro R, Maribel R, Vahid Y, Casey BC, Nura R, Anusha R, Gavin PATINO, González EM. Chiari I malformation and : a comprehensive review of the literature to address common questions and to guide management. Acta Neurochir ([place]). 2019;162(7):5006-3370. doi: 10.1007/c52585-616-24077-4. Epub 2019Oct 07. PMID: 74693878. Code(s): G93.5 - Compression of brain Status: Acute Documented By: William Leyva DO 08/02/22 1032 Signed By: <Electronically signed by William Leyva DO> 08/02/22 1048 [facility] Work Phone: 1(523) 322-499801-26-2023 Discharge summary Author Eduardo Swain [facility] July 17, 2022 12:17pm Note Date/Time July 17, 2022 1 2:16pm [facility] [address] [place] [address] Discharge Summary Signed Patient: Maricarmen Anderson MR#: [id number] : 1980 Acct:[id number] Age/Sex: 41 / F Adm Date: 3 Loc: Room: [address] [place] [address]: Eduardo Swain MD Copies to: [...] Family psych history: father-bipolar disorder, aunt-placed in snf for much of life d/t behavioral problems with underlying psychiatric condition Home medications: Effexor, Abilify, Trazodone, Vistaril Alcohol and drug use: Denies use of alcohol, recreational drugs, tobacco. Living: lives at home with 14-year-old son Employment: [employer] in [place] Patient was restarted on her home medications. [...] did not have any conflict with peers orstaff. She attended groups and socialize with peers [...] Regular diet No activity restrictions Instructions: Depression, [facility] DC Instructions Prescriptions: New aripiprazole [...] 30 Days Qty: 30 0RF Follow Up: [facility] [Outside] [facility] [Outside] Documented By: Eduardo Swain MD 07/17/221213 Signed By: <Electronically signed by Eduardo Swain MD> 07/17/221216 [facility] Work Phone: 1(840) 883-491501-25-2023 Progress note Author Eduardo Swain [facility] July 16, 2022 12:37pm Note Date/Time July 16, 2022 1 2:37pm [facility] [address] [place] [address] Psychiatry Progress Note Signed Patient: Maricarmen Anderson MR#: [id number] : 1980 Acct:[id number] Age/Sex: 41 / F Adm Date: 3 Loc: Room: [address] [place] [address] Type : ADM IN Attending Dr: Eduardo [...] alternatives explained Documented By: Eduardo Swain MD 07/16/221235 Signed By: <Electronically signed by Eduardo Swain MD> 07/16/227 [facility] Work Phone: 1(260) 135-927501-24-2023 History and physical note Author Eduardo Swain [facility] July 15, 2022 2:28pm Note Date/Time July 15, 2022 2 :28pm [facility] [address] [place] [address] Psychiatry H&P Signed Patient: Maricarmen Anderson MR#: [id number] : 1980 Acct:[id number] Age/Sex: 41 / F Adm Date: 3 Loc: Room: [address] [place] [address] Type: ADM IN Attending Dr: Eduardo Swain [...] Family psych history: father-bipolar disorder, aunt-placed in snf for much of life d/t behavioral problems with underlying psychiatric condition Home medications: Effexor, Abilify, Trazodone, Vistaril Alcohol and drug use: Denies use of alcohol, recreational drugs, tobacco. Living: lives at home with 14-year-old son Employment: [employer] in [employer] Review of symptoms: Constitutional: Denies chills and [...] Cloudy A Urine pH 5.5 Ur Specific Barnet 1.010 Urine Protein Negative Urine Glucose (UA) [...] alternatives explained Documented By: Eduardo Swain MD 07/15/22 1426 Signed By: <Electronically signed by Eduardo Swain MD> 07/15/22 1428 [facility] Work Phone: 1(606) 402-388607-07-2022 Miscellaneous Notes* Telephone Encounter - BYRON Richter [...] the port. BYRON Richter [facility] Miscellaneous Notes* Telephone Encounter - Kathi Waterman [...] She states she will go to a [facility] ER because local ER doesn't know what [...] calling: self Call patient at: at home [phone] (home) [phone] (cell) Was an appointment scheduled: No Closing statement: Symptom Call: Thank you for [facility], your call is very important. A nurse will call in approximately 2-4 hours during business hours. If this is an emergency, please contact 911. Uyen Dela Cruz documented in [facility] History of Present illness Atcpfvuzu11 you F with known Chiari malformation and suspected ideopathic intracranial hypertension presentsfor evaluation of neck pain, arm pain, and balance problems. She has been dealing with this for several years but it has worsening over the past few months. The pain radiated down from her neck to her back and down both arms.[facility] Work Phone: 1(603) 635-231106-08-2021 NoteHNO ID: [id number] Author: Emelia Baldwin MD Service: ? Author [...] discussing the plan of care Emelia Baldwin, [facility]05-25-2021 NoteHNO ID: [id number] Author: RT Argentina(R) Service: Radiology Author Type: Geospatial Engineer Type: Progress Notes Filed: 11/13/2020 3:15 PM [...] NO. PATIENT RELEVANT IMPLANT DATA REVIEWED: PM STJ ASSURITY 2272, 1.5T-3000 G/cm RADIOLOGY DEPARTMENT: MR; Exam(s) Completed: Body: Renal Spine: Cervical spine PERIPHERAL IV DATA: Left in for next appt SIGNED BY: MARTIN/ RT Argentina(R) November 13, 2020 3:13 [facility]05-25-2021 NoteHNO ID: [id number] Author: Yuni Parry RN Service: Nursing Author [...] Anderson DATE: November 13, 2020 TIME: 1:07 [facility]05-25-2021 NoteHNO ID: [id number] Author: Dakota Moreno RN Service: Radiology Author [...] Dakota Moreno RN November 13, 2020 3:18 [facility]05-25-2021 NoteHNO ID: [id number] Author: RT Duarte(R) Service: Radiology Author Type: Geospatial Engineer Type: Progress Notes Filed: 11/13/2020 10:28 AM [...] BY: RT Duarte(R) November 13, 2020 10:28 [facility]05-23-2021 NoteHNO ID: [id number] Author: Vicente New MD Service: General Surgery [...] LIPASE 21 SIGNATURE: Lucero Wheeler DO Pager: [phone] DATE: 11/11/2020 TIME: 8:28 AM [facility] STAFF PHYSICIAN NOTE OF PERSONAL INVOLVEMENT IN [...] November 11, 2020 TIME of SERVICE: 6:19 [facility]05-22-2021 NoteHNO ID: [id number] Author: Vicente New MD Service: General Surgery [...] LIPASE 21 SIGNATURE: Lucero Wheeler DO Pager: [phone] DATE: 11/10/2020 TIME: 10:07 AM [facility] STAFF PHYSICIAN NOTE OF PERSONAL INVOLVEMENT IN [...] November 10, 2020 TIME of SERVICE: 9:27 [facility]05-21-2021 NoteHNO ID: [id number] Author: Mechelle Connolly PharmD Service: Pharmacy Author Type: Pharmacist Type: Plan of Care Filed: 11/09/2020 1:40 PM Note Text: PHARMACY MEDICATION REVIEW Patient Name: Maricarmen Anderson : 1980 The following medications were updated within the MANAGER SEARCH medication list: Medications ADDED to MANAGER SEARCH medication list ? Abjovy 225/1.5 inj monthly Medications CHANGED on MANAGER SEARCH medication list ? Ativan 1mg po at bedtime Medications REMOVED from MANAGER SEARCH medication list ? NS 1000mL infusions ? Sertraline 200mg ? topiramate 25mg ? protonix liquid ? Lamotrigine 25mg ? Emgality Additional comments: N/A The below information represents the best possible medication history: Yes Medication history completed by: Pharmacist: Mechelle Connolly PharmD Source of history: Patient: Reliability of source: Appears reliable, clearly identified: Medication name, Medication dose, Medication frequency and Timing of last dose, Pharmacy records: fill history and OARRS Medication nonadherence identified: No barriers noted Reconciliation completed: No, patient not yet admitted. Patient interested in Bedside Delivery Services or using OP Pharmacy at discharge? Unable to assess Preferred outpatient pharmacy: [facility]- [id number] [place] [address] [address] [facility] [phone] [place] [address] Allergies: Dilaudid [Hydromorp* Itching Prior to Admission [...] hours as needed. Yes Mechelle Connolly, PharmD 11/09/2020[facility]05-19-2021 NoteHNO ID: [id number] Author: Clemente Eng MD Service: ? Author Type: Physician Type: Progress Notes Filed: 11/07/2020 4:52 PM Note Text: Established VIRTUAL CONSULT NAME: Maricarmen Anderson [facility] NO: [id number] DATE OF SERVICE: November 07, 2020 I [...] 215 (was 215lb on 10/19) BM: On Linzess, BM a few times per day Pain: [...] further workup at home vs coming to [place] - If get's worse, then she will come back to [place] During this patient visit I have spent approximately 30 minutes nyuw-bn-lfmo with the patient and over half the time was devoted to counseling and/or coordination of care. We discussed in depth the possible surgical treatment of gastroparesis and options involved. Clemente Eng MD PAST HISTORY PAST MEDICAL HISTORY Diagnosis Date - Acute venous embolism and thrombosis of brachial vein ([facility]) 2013 due to IV infiltrate, 2013, also on OCPs - Eosinophilic esophagitis - Gastroparesis - GERD (gastroesophageal reflux disease) - History of gastric bypass complications - Obesity, Class III, BMI 40-49.9 (morbid obesity) ([facility]) - Port-A-Cath in place patients right upper [...] (0600/1600). - cholecalciferol (VITAM (more content not included)...[facility]04-30-2021 NoteHNO ID: [id number] Author: Clemente Eng MD Service: ? Author Type: Physician Type: Progress Notes Filed: 10/19/2020 9:56 AM Note Text: Established VIRTUAL CONSULT NAME: Maricarmen [place] [facility] NO: [id number] DATE OF SERVICE: October 19, 2020 I [...] with me later this week with either Bookitit message or a phone call concerning her J-tube site. -Follow-up visit in the summertime for those gastrectomy labs -I think some of her abdominal pain is related to her recent J-tube dislodgment. If is not improved by late November and then will do further work-up. This point is not debilitating. During this patient visit I have spent approximately 25 minutes vhkh-cy-iorv with the patient and over half the time was devoted to counseling and/or coordination of care. We discussed in depth the possible surgical treatment of gastroparesis and options involved. Clemente Eng MD PAST HISTORY PAST MEDICAL HISTORY Diagnosis Date - Acute venous embolism and thrombosis of brachial vein ([facility]) 2013 due to IV infiltrate, 2013, also on OCPs - Eosinophilic esophagitis - Gastroparesis - GERD (gastroesophageal reflux disease) - History of gastric bypass complications - Obesity, Class III, BMI 40-49.9 (morbid obesity) ([facility]) - Port-A-Cath in place patients right upper [...] 250 mg by m (more content not included)...[facility]04-28-2021 NoteHNO ID: [id number] Author: Doug Duncan PA-C Service: ? Author Type: Physician Supervisor [employer] Workers Type: Progress Notes Filed: 10/22/2020 12:29 PM [...] you. LORENE Levy October 17, 2020 2:20 [facility]04-28-2021 NotePatient Outreach (VTRIAG) MARICARMEN ANDERSON ([id number]) 1980 F T Date Time Provider Department 10/17/20 DOUG DUNCAN [...] Itching Date Reviewed: 09/29/2020 Reviewed by: Anne-Marie VasquezRn) BRANDIE Farley - Fully Assessed Reason for [...] 05/25/2020 Encounter Status:Closed by DOUG DUNCAN on 10/22/20[facility] 09-29-2020 NoteHNO ID: [id number] Author: Elissa Medina MD Service: General Surgery [...] monitor closely. Elissa Medina DO General Surgery, PGY-1[facility] NoteHNO ID: [id number] Author: Kiara (Rn) BRANDIE Lyon Service: Care Management Author Type: Registered Nurse Type: Care Mgt Progress Note Filed: 05/29/2020 4:13 PM Note Text: CARE MANAGEMENT DISCHARGE NOTE SERVICE DATE: 05/29/2020 SERVICE TIME: 4:10 PM LOS: 2 days Admission Date: 05/25/2020 DISCHARGE ARRANGEMENT (list agency and phone number) Discharge Arrangement: Home;Home Care pharmacy Provider Name: [facility] for TF formula and supplies [...] Physician Primary Care Physician Name/Phone: Vilma Sotelo [phone] TRANSPORTATION ARRANGEMENTS: Transportation Arrangements: Car ADDITIONAL CONTACT RESOURCES: none Needs Prior to Discharge: Ready for Discharge;Nutrition Enteral Arrangements IMM Follow Up Copy Given: Yes Copy given to:: Patient Method: In Person Pt has been cleared for dc today to home with self care and resumption of TF from [facility]. New RX has been obtained and sent to [facility]. Due to late timing of receiving the RX, [facility] will not be able to order the [...] 29, 2020 TIME: 4:10 PM PAGER/CONTACT #: [phone] Note HNO ID: [id number] Author: Deirdre Dejesus Service: General Surgery Author Type: Resident Type: Progress Notes Filed: 05/29/2020 7:13 AM Note Text: Attestation signed by Clemente Eng at 05/29/2020 4:17 PM Attending Note I evaluated the patient and personally participated in the edward components. I agree with the resident's findings and plan with the following revisions and/or additions: Patient feels better on [employer]. Given letter about incidentals (Renal mass and [...] 9.1 8.8 SIGNATURE: Deirdre Dejesus DO Pager: [phone] DATE: 05/29/2020 TIME: 7:05 [facility]12-07-2020 NoteHNO ID: [id number] Author: Kiara (RnNorth Lyon RN Service: Care Management Author Type: Registered Nurse [...] 28, 2020 TIME: 10:19 AM PAGER/CONTACT #: [phone] Note HNO ID: [id number] Author: Raleigh Srivastava DO Service: General Surgery [...] she will require further imaging surveillance. Raleigh Srivastava, DO General Surgery, PGY-3SP[facility]12-[facility] NoteHNO ID: [id number] Author: Deirdre Dejesus Service: General Surgery Author Type: Resident Type: Progress Notes Filed: 05/27/2020 7:02 AM Note Text: Attestation signed by Clemente Eng at 05/27/2020 4:01 PM Attending Note I evaluated the patient and personally participated in the edward components. I agree with the resident's findings and plan with the following revisions and/or additions: Continued TF intolerance, will dw nutrition about changing to [employer], Plan on EGD tomorrow to R/o esophagitis/marginal [...] SpO2 92% LMP 05/18/2020 BMI 35.53 kg/(m2). O2 Therapy: [...] -- 1.9 SIGNATURE: Deirdre Dejesus DO Pager: [phone] DATE: 05/27/2020 TIME: 6:55 [facility]12-05-2020 NoteHNO ID: [id number] Author: Idalia (Rn) BRANDIE Cohen Service: Care Management Author Type: [...] outside services in the home. Active with [facility] for Tube feeding. Referral placed to verify if active prescription. Patient states family will provide transport Home at discharge. Care coordination team will continue to follow and update the discharge plan per medical needs. 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 Last discharge within 30 days: No Advance Directive: Current Advance Directive: None Care Transition Coordinator Attempted to Assist with AD Completion: Yes [...] supplies Has the Patient Been in a Residential Facility in the Past 30 days?: No SOCIAL: Living Arrangements: Home Lives With: Son Financial Resources: Disabled Primary Contact: Extended Emergency Contact Information Primary Emergency Contact: HéctorKhalida Mobile Relation: Sister Secondary Emergency Contact: Lucero [...] Completely I feel financially burdened by my xiq-ly-fdgqoh expenses for my prescription medication:: 0 - Disagree Completely Risk Score: 0 Patient is categorized as: Low risk < 2 Are you interested in bedside delivery of your medications? No Is Patient Psychosocially Complex?: No ASSESSMENT AND PLAN: Medical Needs: Medical Needs: Two or more chronic diseases;Nutritional Nutrition Needs: Tube Feed Psychosocial Needs: FREEDOM OF CHOICE EXPLAINED: [place] of Choice Given: Yes Level of Care Discussed: Other: See Comment(home pharmacy) Provider list within the patient's requested geographic area shared with the patient/family: No Reason: Patient active with [facility] for tubefeeding and planning to continue at discharge POTENTIAL TRANSITION PLANS Home;Home Care Pharmacy SIGNATURE: Idalia Cohen RN PATIENT NAME: Maricarmen Anderson DATE: May 26, 2020 TIME: 2:16 PM PAGER/CONTACT #: [phone] Note HNO ID: [id number] Author: Interface Note Service: ? Author Type: ? Type: Progress Notes Filed: 05/26/2020 3:18 AM Note Text: Epic Scheduled Downtime: 05/26/2020 1:00:00 AM to 05/26/2020 3:06:00 [facility]07-13-2020 NoteHNO ID: [id number] Author: Maynor Manley DO Service: General Surgery [...] home today. SIGNATURE: Maynor Manley DO PAGER: [phone] DATE: January 02, 2020 TIME: 7:22 AM Assessment: currently tolerating J-tube feeds 50 ml. Still has lower abdominal pain not worsened by TF's. ? -Continue TF's -continue IVF -PRN enteric pain meds -Lovenox 40mg for VTE PPX -Protonix 40mg every day and carafate stopped SUBJECTIVE INTERVAL HISTORY OF PRESENT ILLNESS: Patient was seen and evaluated at beside this morning. No significant events overnight. Patient [...] Lubin DO Pager: DATE: 01/02/2020 TIME: 7:10 [facility]07-12-2020 NoteHNO ID: [id number] Author: Glenny Chavarria (Sw) Service: Care Management Author Type: Fiction And Nonfiction Prose Writer Type: Care Mgt Progress Note Filed: 01/01/2020 8:32 AM Note Text: CARE MANAGEMENT PROGRESS NOTE SERVICE DATE: 01/01/2020 SERVICE TIME: 8:30AM LOS: 0 days SW CM confirmed with patient that [facility] is provider [...] EMPERATRIZ Hernandez PATIENT NAME: Maricarmen Anderson DATE: January 01, 2020 TIME: 8:30 AM PAGER/CONTACT #: [phone] NoteHNO ID: [id number] Author: Avtar Randhawa Service: General Surgery Author [...] TTP, keep TF at 40ml/hr, start Miralax, hospital does not have her Linzess. Signature: [...] January 01, 2020 Time: 6:31 AM Pager: [phone] between 6AM-5PM weekday. [phone] for weekend and night call.[facility]07-12-2020 NoteHNO ID: [id number] Author: Interface Note Service: ? Author Type: ? 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 Goals: To have reduction in symptoms Health Insurance: Comment([facility]) Health Issues Impacting Discharge Plan: Chronic Chronic: [...] Per EMR , patient sleeping , SCOT CM to follow up with assessment questions Functional Status: Independent Does Patient Currently Receive Any Community Services or Home Care?: None Equipment Prior to Admission: Other: See Comment(Tube feed supplies) SOCIAL: Living Arrangements: Home Lives With: SpousePrimary Contact: Extended Emergency Contact Information Primary Emergency Contact: Khalida Anaya Mobile Relation: Sister Secondary Emergency Contact: Dennis [...] Completely I feel financially burdened by my vhh-td-rpyruv expenses for my prescription medication:: 0 - Disagree Completely Risk Score: 0 Patient is categorized as: Low risk < 2 Are you interested in bedside delivery of your medications? No Is Patient Psychosocially Complex?: No ASSESSMENT AND PLAN: Medical Needs: Medical Needs: Two or more chronic diseases Psychosocial Needs: Psychosocial Needs: None FREEDOM OF CHOICE EXPLAINED: [place] of Choice Given: No Reason Not Given: No placements necessary POTENTIAL TRANSITION PLANS Patient active with [facility] in the community for tube feeding . SCOT to follow up with patient as to plan . PEJ tube Observation status. EMR reviewed. 5:00pm : [facility] indicates that Osmolite 1.5 , 1200 ml daily , 50ml/hour , free water flush at 100ml 6x a day. EMPERATRIZ Rodriguez SIGNATURE: EMPERATRIZ Hernandez PATIENT NAME: Maricarmen Anderson DATE: December 31, 2019 TIME: 3:09 PM PAGER/CONTACT #: [phone] NoteHNO ID: [id number] Author: Interface Note Service: ? Author Type: ? Type: Progress Notes Filed: 12/31/2019 3:12 AM Note Text: Epic Scheduled Downtime: 12/31/2019 1:00:00 AM to 12/31/2019 2:45:23 [facility]12-17-2019 History of Past illness Narrative* Problem Noted [...] several OSH ED and admitted once to [facility] with Negative MRI/EEG work up [...] Placed on Cipro and presented to OSH [facility] and had a negative culture, antibiotics were stopped - She had an MRI/EEG workup at [facility] - negative - Continues symptoms- confusion, memory loss, slow to respond, slowed speech, numbness intermittently in upper extremities. New frontal headache over past 2-3 days, no visual changes. PLAN: - EEG - MRI kem MIGUEL - Thiamine, B6, B12, Ammonia, Lead, niacin, [...] of this encounter (statuses as of 09/18/2021) [facility]12-17-2019 History of Past illness Narrative* Problem Noted [...] several OS ED and admitted once to [facility] with Negative MRI/EEG work up [...] UTI. Placed on Cipro and [facility] and [facility], antibiotics were stopped - She had an MRI/EEG workup at [facility] - negative - Continues symptoms- confusion, memory loss, slow to respond, slowed speech, numbness intermittently in upper extremities. New frontal headache over past 2-3 days, no visual changes. PLAN: - EEG - MRI kem [facility] - Thiamine, B6, B12, Ammonia, Lead, niacin, [...] see abdominal pain for more details. Julianna maryn. documented as of this encounter (statuses as of 12/26/2021) [facility] complaint Narrative - Reported* Patient is being seen for an initial Neurosurgical evaluation. * History of Chiari malformation. Having neck pain and numbness and tingling in her face and arms. Had seen F doctor, told her not warranted at this time. YN-Flcyrmkajlqz-FGWSY Work Phone: Evaluation + Plan note No data available for this section [facility] evaluation + Plan note Future Appointments Appointment Date:05/03/2024 09:00:00 AM Scheduled Provider:ESTELA CHUNG PA-C Location:[facility] Appointment Type:URO Office Visit [facility] evaluation + Plan note Future Appointments Appointment Date:06/02/2024 02:20:00 PM Scheduled Provider:ESTELA CHUNG PA-C Location:[facility] Appointment Type:URO Office Visit [facility] Evaluation note* Diagnosis Onset Date Resolution Status Advanced maternal age affecting , antepartum acute Anemia acute BMI 35.0-35.9,adult acute Depression acute First trimester ac tribe History of induced hypertension acute Major depression 2021 acute Major depression with psychotic features acute acute PTSD (post-traumatic stress disorder) acute UTI (urinary tract infection) acute [facility] Work Phone: Evaluation noteNo assessment information available [facility] Work Phone: Evaluation note* Diagnosis Onset Date Resolution Status Hallucinations acute History of induced hypertension acute Major depression with psychotic features acute acute Schizoaffective disorder acu te [facility] Work Phone: Evaluation note* Diagnosis Onset Date Resolution Status Hallucinations acute History of induced hypertension acute Major depression with psychotic features acute acute Schizoaffective disorder acu te Chiari malformation type I a cute History of induced hypertension acute [facility] Work Phone: Evaluation note* Diagnosis Onset Date Resolution Status Hallucinations acute History of induced hypertension acute Major depression with psychotic features acute acute Schizoaffective disorder acu te Chiari malformation type I a cute History of induced hypertension acute Schizoaffective disorder acu te Auditory hallucination acute Depression with suicidal ideation acute Schizoaffective disorder acu te Suicide ideation acute [facility] Work Phone: Evaluation note* Diagnosis Onset Date Resolution Status Chiari malformation type I a cute History of induced hypertension acute Schizoaffective disorder acu te Auditory hallucination acute Depression with suicidal ideation acute Schizoaffective disorder acu te Suicide ideation acute Auditory hallucinations acut e [facility] Work Phone: Evaluation note* Diagnosis Onset Date Resolution Status Schizoaffective disorder acu te Auditory hallucination acute Depression with suicidal ideation acute Schizoaffective disorder acu te Suicide ideation acute Auditory hallucinations acut e Gastroparesis acute Nausea & vomiting acute Schizoaffective disorder acu te [facility] Work Phone: Evaluation note* Diagnosis Onset Date Resolution Status Auditory hallucinations acut e Gastroparesis acute Nausea & vomiting acute Schizoaffective disorder acu te [facility] Work Phone: Evaluation note* Diagnosis Onset Date Resolution Status Auditory hallucinations acut e Gastroparesis acute Nausea & vomiting acute Schizoaffective disorder acu te Schizoaffective disorder acu te Suicide ideation acute [facility] Work Phone: Evaluation note* Diagnosis Pacemaker Cardiac pacemaker in situ Sick sinus syndrome (CMS/HCC) Sinoatrial node dysfunction documented in this encounter [facility] Work Phone: Evaluation note* Diagnosis Pacemaker Cardiac pacemaker in situ Sick sinus syndrome (CMS/HCC) Sinoatrial node dysfunction documented in this encounter [facility] Work Phone: Evaluation note* Diagnosis Pacemaker Cardiac pacemaker in situ Sick sinus syndrome (Multi) Sinoatrial node dysfunction documented in this encounter [facility] Work Phone: Evaluation note* Diagnosis Pacemaker Cardiac pacemaker in situ Sick sinus syndrome (Multi) Sinoatrial node dysfunction documented in this encounter [facility] Work Phone: History and physical note Author Eduardo Swain [facility] December 12, 2022 10:19am Note Date/Time December 12, 2022 10:1 9am [facility] ENTER [address] [place] [address] Psychiatry H&P Signed Patient: Maricarmen Anderson MR#: [id number] : 1980 Acct:[id number] Age/Sex: 42 / F Adm Date: 3 Loc: Room: [address] [place] [address] Type: ADM IN Attending Dr: Eduardo Swain [...] promethazine 12.5 mg rectal suppository 12.5 mg UT Q6H PRN Nausea And Vomiting 12/11/22 [History [...] cloudy A Urine pH 6.0 Ur Specific [place] 1.015 Urine Protein Negative Urine Glucose (UA) [...] signed by Eduardo Swain MD> 12/12/22 1019 [facility] Work Phone: History of Present illness Narrative* [...] 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 * Personal review of ECG and cardiac [...] needed, treatment options, risks, benefits, and imponderables. [employer] lifestyle changes and behavioral modification discussed. All questions answered in detail. Counseling over 50% visit regarding above. Patient appreciative of care. 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 * Personal review of ECG and cardiac [...] needed, treatment options, risks, benefits, and imponderables. [employer] ss[employer] lifestyle changes and behavioral modification discussed. All questions answered in detail. Counseling over 50% visit regarding above. Patient appreciative of care. 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 * Personal review of ECG and cardiac [...] needed, treatment options, risks, benefits, and imponderables. [employer] ss[employer] lifestyle changes and behavioral modification discussed. All questions answered in detail. Counseling over 50% visit regarding above. Patient appreciative of care. 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 * Personal review of ECG and cardiac [...] treatment options, risks, benefits, and i mponderables. [employer] lifestyle changes and behavioral modification discussed. All questions answered in detail. Counseling over 50% visit regarding above. Patient appreciative of care. 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 * Personal review of ECG and cardiac [...] treatment options, risks, benefits, and i mponderables. [employer] lifestyle changes and behavioral modification discussed. All questions answered in detail. Counseling over 50% visit regarding above. Patient appreciative of care. [facility] 320 DO Work Phone: History of Present [...] * Device Check: Today. [employer] 3622 pacemaker. On field alert. Discussed field alert [...] needed, treatment options, risks, benefits, and imponderables. [employer] lifestyle changes and behavioral modification discussed. All questions answered in detail. Counseling over 50% visit regarding above. Patient appreciative of care. [facility] [address] DO Work Phone: [facility]: [facility]charge instructions Additional Instructions Regular Diet No Activity [facility] Work Phone: Hospital Discharge instructions Additional Instructions Obtain BP cuff at pharmacy and obtain BP at home twice daily after resting for ten minutes prior to performing. Call Labor and Delivery for BP elevated 150/100 x 2 readings. Return Thursday08/05/2022 at 0900 for NST and BP check.[facility] Work Phone: Hospital Discharge instructions No data available for this section [facility] Discharge instructions Additional Instructions No Activity Restrictions Regular Diet continue your vitamin therapy after gastric surgery as prescribed. Your vitamin D and B12 were found low while you were i the hospital.[facility] Work Phone: Progress note No data available for this section [facility] reason for visit Narrative* Imaging (Routine) - Pending Review Specialty Diagnoses / Procedures Referred By Laura nicole Referred To Contact Cardiology Diagnoses Pacemaker Sick sinus syndrome (Multi) Procedures Cardiac Device Check - Remote Rita Olivia MD [address] [facility] Office [facility], [address] [address] Phone: tel: fax: Referral ID Status Reason Start Date Expiration Date Visits Requested Visits Authorized [id number] Pending Review Perform Procedure 05/25/2024 05/25/2025 1 1 [facility] Work Phone: Summary Purpose Family History No [...] FoundDocuments on File Type Date Recorded 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 She is 16 weeks Patient here for 6 month follow-up with [facility]. She is 16 weeks Patient presented today [...] ns iup 37 weeks IUP (Intrauterine ) P dizzy headache abd pain n/v [facility] Reason for Visit Chiari malformation type I History of induced hypertension Schizoaffective disorder Auditory hallucination Depression with suicidal ideation Schizoaffective disorder Suicide ideation Auditory hallucinations Chief Complaint iup 37 weeks IUP (Intrauterine ) P dizzy headache abd pain n/v [facility] Reason for Visit Schizoaffective diso rder Auditory hallucination Depression with suicidal ideation Schizoaffective disorder Suicide ideation Auditory hallucinations Gastroparesis Nausea & vomiting Schizoaffective disorder Chief Complaint dizzy headache abd pain n/v [facility] Reason for Visit Auditory hallucinati ons Gastroparesis Nausea & vomiting Schizoaffective disorder Chief Complaint dizzy headache abd pain n/v [facility] Reason for Visit Auditory hallucinati ons Gastroparesis Nausea & vomiting Schizoaffective disorder Schizoaffective disorder Suicide ideation Chief Complaint dizzy headache abd pain n/v [facility] mri clearance Reason for Visit Auditory hallucinati ons Gastroparesis Nausea & vomiting Schizoaffective disorder Schizoaffective disorder Suicide ideation Chief Complaint [facility] mri clearance N28.89 Reason for Visit Auditory hallucinati ons Gastroparesis Nausea & vomiting Schizoaffective disorder Schizoaffective disorder Suicide ideation Chief Complaint Amb Documentation [facility] follow up, Chief Complaint Admit Date n28.89 May 30, 2024 3 :16pm Hematology f/u June 10, 2024 9:26am June 21, 2024 8:00am N28.89 July 04, 2024 1 :41pm Reason for Visit Admit Date Cervical radicular pain June 10, 9:26am Gastroparesis June 10, 2024 9:26am Chief Complaint Admit Date Hematology f/u June 10, 2024 9:26am N28.89 July 04, 2024 1 :41pm August 23, 2024 4:00 am cervical radiculopathy August 24, 2024 7 :54am Chief Complaint Admit Date Hematology f/u June 10, 2024 9:26am N28.89 July 04, 2024 1 :41pm August 23, 2024 4:00 am cervical radiculopathy August 24, 2024 7 :54am cervical radiculopathy August 31, 2024 7:28am Reason for Referral Specialty Diagnoses / Procedures Referred By Laura t Referred To Contact Cardiology Diagnoses Pacemaker Sick sinus syndrome (CMS/HCC) Procedures Cardiac Device Check - Remote Rita Olivia MD [address] [facility] Office [facility], [place] [address] Referral ID Status Reason Start Date Expiration Date Visits Requested Visits Authorized [id number] Pending Review Perform Procedure 04/24/2023 04/23/2024 1 1 Additional Source Comments INFORMATION SOURCE (unrecogn ized section and content) DATE CREATED AUTHOR 05/13/2019 [facility] DATE CREATED AUTHOR AUTHOR'S ORGANIZ ATION 09/27/2019 [facility] DATE CREATED AUTHOR AUTHOR'S ORGANIZ ATION [facility]/11/[facility] DATE CREATED AUTHOR AUTHOR'S ORGANIZ ATION 11/18/2020 [facility] DATE CREATED AUTHOR AUTHOR'S ORGANIZ ATION 09/20/2021 [facility] DATE CREATED AUTHOR AUTHOR'S ORGANIZ ATION 10/31/2022 [facility] DATE CREATED AUTHOR AUTHOR'S ORGANIZ ATION 01/21/2023 [facility] DATE CREATED AUTHOR AUTHOR'S ORGANIZ ATION 01/22/2023 [facility] DATE CREATED AUTHOR AUTHOR'S ORGANIZ ATION 03/05/2023 [facility] DATE CREATED AUTHOR AUTHOR'S ORGANIZ ATION 11/06/2023 [facility] DATE CREATED AUTHOR AUTHOR'S ORGANIZ ATION 07/08/[address] [facility] DATE CREATED AUTHOR AUTHOR'S ORGANIZ ATION 07/28/2024 [facility] DATE CREATED AUTHOR AUTHOR'S ORGANIZ ATION 09/03/2024 [facility] DATE CREATED AUTHOR AUTHOR'S ORGANIZ ATION 09/08/2024 [facility] Source Comments (unrecognize d section and content) In the event this informatio n is protected by the Federal Confidentiality of Alcohol and Drug Abuse Patient Records regulations: The Federal rules restrict any use of the information to criminally investigate or prosecute any alcohol or drug abuse patient.[facility] the event this information is protected by the Federal Confidentiality of Alcohol and Drug Abuse Patient Records regulations: The Federal rules restrict any use of the information to criminally investigate or prosecute any alcohol or drug abuse patient.[facility] Reason for Visit (unrecogniz ed section and content) Reason Comments Patient Update Specialty Diagnoses / Procedures Referred By Contac t Referred To Contact Cardiology Diagnoses Pacemaker Sick sinus syndrome (CMS/HCC) Procedures Cardiac Device Check - Remote Rita Olivia MD [address] [facility] [address], [address] [place] [address] Referral ID Status Reason Start Date Expiration Date Visits Requested Visits Authorized [id number] Pending Review Perform Procedure 04/24/2023 04/23/2024 1 1 Specialty Diagnoses / Procedures Referred By Contac t Referred To Contact Cardiology Diagnoses Pacemaker Sick sinus syndrome (CMS/HCC) Procedures [place] [address] [facility] [address] [place] [address] Specialty Diagnoses / Procedures Referred By Contac t Referred To Contact Cardiology Diagnoses Pacemaker Sick sinus syndrome (Multi) Procedures Cardiac Device Check - Remote Rita Olivia MD [facility] [address] [facility] Medical Office [facility], [address] [place] [address] Care Teams (unrecognized sec tion and content) Team Status: Active Member Role Status Dates Viktor Sotelo MD Primary Care Provider Active Team Status: Inactive Member Role Status Dates Viktor Sotelo MD Primary Care Provide r, Attending Provider Active Start: June 10, 2024 End: June 10, 2024 Team Status: Inactive Member Role Status Dates Viktor Sotelo MD Primary Care Provider Active Start: July 04, 2024 End: July 04, 2024 Michael Viveros MD Attending Provider Active St art: July 04, 2024 End: July 04, 2024 Team Status: Active Member Role Status Dates Viktor Sotelo MD Primary Care Provider Active Start: July 05, 2024 Emy Lemus MD Attending Provider Active St art: July 05, 2024 Team Status: Active Member Role Status Dates Viktor Sotelo MD Primary Care Provider Active Start: July 11, 2024 Tete Snell MD Attending Provider Active Start: July 11, 2024 Team Status: Active Member Role Status Dates Viktor Sotelo MD Primary Care Provider Active Start: August 23, 2024 Nimesh Cerda MD Attending Provider Active Start: August 23, 2024 Team Status: Active Member Role Status Dates Viktor Sotelo MD Primary Care Provider Active Start: August 24, 2024 Tete Snell MD Other Provider Active St art: August 24, 2024 Mercy Francis MD Attending Provider Active Start: August 24, 2024 Team Status: Inactive Member Role Status Dates Viktor Sotelo MD Primary Care Provider Active Start: August 31, 2024 End: August 31, 2024 Tete Snell MD Attending Provider Active Start: August 31, 2024 End: August 31, 2024 Team Status: Active Member Role Status [...] Active Start: June 21, 2024 Team Status: Active Member Role Status [...] November 12, 2023 End: November 12, 2023 Loss Prevention Investigator Relationship Specialty Start Date End Date Viktor Sotelo MD [address] [place] [id number] PCP - General 10/18/13 Loss Prevention Investigator Relationship Specialty Start Date End Date Viktor Sotelo MD [address] [facility] [place] [id number] PCP - General 10/18/13 Team Status: Inactive Member Role Status Tash Sotelo MD Primary Care Provider Active Cornell Mcnair MD Emergency Provider Active Eduardo Swain MD Admit Provider, Attending Provider Active Urbano Palma , Other Provider Active Team Status: Inactive Member Role Status Tash Sotelo MD Primary Care Provider Active Raymond Oconnor PA-C Emergency Provider Active Team Status: Inactive Member Role Status Tash Sotelo MD Primary Care Provider Active Eduardo Swain MD Attending Provider Active Team Status: Inactive Member Role Status Tash Sotelo MD Primary Care Provider Active Delaney Carlisle DO Attending Provider Active Team Status: Inactive Member Role Status Tash Sotelo MD Primary Care Provider Active Michael Cerda DO Emergency Provider Active Team Status: Active Member Role Status Tash Sotelo MD Primary Care Provider Active Urbano Palma DO Attending Provider Active Team Status: Inactive Member Role Status Tash Sotelo MD Primary Care Provider Active Urbano Palma DO Attending Provider Active Team Status: Active Member Role Status Tash Sotelo MD Primary Care Provider Active Michael Cerda DO Emergency Provider Active Eduardo Swain MD Admit Provider, Attending Provider Active Team Status: Inactive Member Role Status Tash Sotelo MD Primary Care Provider Active Michael Cerda DO Emergency Provider Active Eduardo Swain MD Admit Provider, Attending Provider Active Team Status: Inactive Member Role Status Tash Sotelo MD Primary Care Provider Active Dustin Cody MD Admit Provider, Attending Provider Active Team Status: Inactive Member Role Status Tash Sotelo MD Primary Care Provider Active Urbano Palma DO Admit Provider, Attending Provider Active Team Status: Inactive Member Role Status Tash Sotelo MD Primary Care Provider Active Raffaele Ellsworth DO Emergency Provider Active Toribio Cerda MD Admit Provider, Attending Pr ovider Active Team Status: Inactive Member Role Status Dates Viktor Sotelo MD Primary Care Provider Active Chelsie Cortez , MILL WASHER Emergency Provider Active Team Status: Active Member Role Status Dates Viktor Sotelo MD Primary Care Provider Active Keven Florentino , DO Emergency Provider Active Toribio Cerda MD Admit Provider, Attending Pr ovider Active Team Status: Inactive Member Role Status Dates Viktor Sotelo MD Primary Care Provider Active Keven Florentino , DO Emergency Provider Active Toribio Cerda MD Admit Provider, Attending Pr ovider Active Poonam Dejesus , BRANDIE Other Provider Active Glenis Palmer , BRANDIE Other Provider Active Katarina Garrett , RN Other Provider Active Georgia Arana , RN Other Provider Active Yola Orta RN Other Provider Active Yisel Martin , BRANDIE Other Provider Active Magda Hurley MD Other Provider Active Eh Jennings MD Other Provider Active Urmila Paiz , MILL WASHER Other Provider Active Mahad Mandel , DO [...] MD Other Provider Active Gretta Maki , VOLUNTEER SERVICES SPECIALIST-C Other Provider Active Yonny Bazan MD Other Provider Active Trace Morataya MD Other Provider Active Dimitris Joe MD Other Provider Active Verona Waterman , DO Other Provider Active All Bloom , DO Other Provider Active Joe Holland , DO Other Provider Active Candice Roman MILL WASHER Other Provider Active Rosendo Holland , DO Other Provider Active Harriet Andrade MD Other Provider Active Chaparrita Mcnair , MILL WASHER Other Provider Active Sheri Montana , MILL WASHER Other Provider Active Genesis Pinedo , BRANDIE Other Provider Active Team Status: Active Member Role Status Dates Viktor Sotelo MD Primary Care Provider Active Toribio Cerda MD Attending Provider Active Team Status: Active Member Role Status Dates Viktor Sotelo MD Primary Care Provider Active Ke Cage DO Emergency Provider Active Eduardo Swain MD Admit Provider, Attending Provider Active Team Status: Inactive Member Role Status Dates Viktor Sotelo MD Primary Care Provider Active Ke Cage DO Emergency Provider Active Eduardo Swain MD Admit Provider, Attending Provider Active Team Status: Inactive Member Role Status Dates Viktor Sotelo MD Primary Care Provider Active Michael Viveros MD Attending Provider Active Team Status: Inactive Member Role Status Dates Viktor Sotelo MD Primary Care Provider Active eK Cage DO Emergency Provider Active Toribio Cerda MD Attending Provider Active Eduardo Swain MD Admit Provider Active Loss Prevention Investigator Relationship Specialty Start Date End Date Viktor Sotelo MD PCP - General 03/02/20 Loss Prevention Investigator Relationship Specialty Start Date End Date Viktor Sotelo MD PCP - General 03/02/20 Loss Prevention Investigator Relationship Specialty Start Date End Date Viktor Sotelo MD [address] [place] [id number] PCP - General 03/02/20 Loss Prevention Investigator Relationship Specialty Start Date End Date Viktor Sotelo MD [address] [place] [id number] PCP - General 03/02/20 Loss Prevention Investigator Relationship Specialty Start Date End Date Viktor Sotelo MD [address] [place] [id number] PCP - General 03/02/20 Goals (unrecognized section [...] alternate section No data available for this sectionGoals may be documented in an alternate sectionGoals may be documented in an alternate section FOR RECORDS PERTAINING TO PATIENTS WHO [...] BE BASED ON THE PRIMARY CLINICAL RECORDS. [facility]. provides no warranty or guarantee of the accuracy or completeness of information in this document.
== END 2024-09-15 08:12 | disposition home or self-care (01) ==
LOC: PM 08:11
PROVIDERS: PCP Family Medicine; Visit Provider Nurse Practitioner
DX: M48.02 Spinal stenosis, cervical region (principal); M54.12 Radiculopathy, cervical region; G93.5 Compression of brain; M47.812 Spondylosis without myelopathy or radiculopathy, cervical region
CPT/HCPCS: G0463

== ENCOUNTER 2024-09-20 04:01 | Outpatient (RCR) | payer MEDICARE, MEDICAID, SELFPAY | END 2024-10-19 15:07 | disposition home or self-care (01) | LOC: MM 04:01 | PROVIDERS: PCP Family Medicine; Visit Provider Internal Medicine | DX: Z51.81 Encounter for therapeutic drug level monitoring (principal); Z79.01 Long term (current) use of anticoagulants | CPT/HCPCS: 85610; G0463 ==

== ENCOUNTER 2024-09-26 07:11 | Day surgery (SDC) | payer MEDICARE, MEDICAID, SELFPAY ==
--- OUTSIDE RECORDS SUMMARY | 2024-09-26 07:16 | XMS_ITS | CCD ---
Author Organization [facility] Care Team Providers Care Trestleman Name Role Phone Unavailable Primary Care Provider UnavailROSELINE Johnson Referring Unavailable Viktor Sotelo Unavailable Viktor Sotelo MD Primary Care Provider MD Viktor Sotelo Primary Care Provider MD Cornell Mcnair Emergency Provider MD Eduardo Swain Admit Provider MD Eduardo Swain Attending Provider DO Urbano Palma Other Provider OSVALDO Oconnor Emergency Provider MD Viktor Sotelo Primary Care Provider [phone] DO Urbano Palma Attending Provider DO Michael Cerda Emergency Provider [phone] DO Delaney Carlisle Attending Provider MD Viktor Sotelo Primary Care Provider DO Urbano Palma Attending Provider MD Eduardo Swain Admit Provider MD Eduardo Swain Attending Provider Unavailable Unavailable MD Dustin Cody Admit Provider MD Dustin Cody Attending Provider VIKTOR SOTELO Primary Care Physician [phone] MD Viktor Sotelo Primary Care Provider DO Urbano Palma Attending Provider Parminderlorene DO Michael Murrieta Emergency Provider MD Eduardo Swain Admit Provider MD Eduardo Swain Attending Provider [phone] MD Dustin Cody Admit Provider [phone] MD Dustin Cody Attending Provider ViscDO Urbano lazar Admit Provider DO Raffaele Ellsworth Emergency Provider MD Toribio Cerda Admit Provider MD Toribio Cerda Attending Provider [phone] MD Viktor Sotelo Primary Care Provider Louie DO Clement Attending Provider [phone] Parminderlorene DO Rodriguez M Emergency Provider DUANE Cortez Emergency Provider DO Keven Florentino Emergency Provider CANDICE ., KRISTA Admitting Unavailable KRISTA ANTONIO [...] Other Provider MD Mike Smart Other Provider [phone] MD Marylu Kemp Other Provider Donny, ANP-BC Afshan Other Provider MD Faby Watts Other Provider [phone] MD Mitesh Hoffman Other Provider MD Sintia Gan Other Provider MD Siobhan Zuniga Other Provider DO Dennis Espinoza Other Provider MD Dawson Branham Other Provider MD Yossi Peterson Other Provider Glynn, LAMP DECORATOR-C Gretta Helms Other Provider MD Yonny Bazan Other Provider MD Trace Morataya Other Provider MD Dimitris Joe Other Provider DO Verona Waterman Other Provider DO All Bloom Other Provider [phone] DO Joe Holland Other Provider DUANE Roman Other Provider DO Rosendo Holland Other Provider [phone] MD Harriet Andrade Other Provider DUANE Mcnair Other Provider [phone] DUANE Montana Other Provider Shahida, BRANDIE Hurtado Other Provider Unavailable MD Viktor Sotelo Primary Care Provider [phone] MD Toribio Cerda Admit Provider MD Toribio Cerda Attending Provider DO Ke Cage Emergency Provider [phone] MD Eduardo Swain Admit Provider MD Eduardo Swain Attending Provider [phone] MD Michael Viveros Attending Provider Sanchez, Dr. [...] Unavailable Viktor Sotelo MD Primary Care Provider Viktor Sotelo MD Primary Care Provider VIKTOR SOTELO Primary Care Unavailable JESSE SIMS Attending Unavailable LEMUEL RENTERIA Admitting Unavailable MARKER, SUJATA Referring Unavailable TONYA JACOBS Consulting Unavailable GILBERTO LOCKHART Consulting Unavailable RAYMOND ORTIZ Consulting Unavailable MD Viktor Sotelo Primary Care Provider MD Nimesh Cerda Attending Provider Viktor Sotelo MD Primary Care Provider Viktor Sotelo MD Primary Care Provider [phone] Estela Chung PA-C Attending Provider Nimesh Cerda MD Attending Provider Michael Viveros MD Attending Provider Michael VIVEROS Referring Unavailable ESTELA CHUNG Attending Unavailable SHELDONESTELA GALLEGOS Attending Unavailable SHELDONESTELA GALLEGOS Attending Unavailable Michael VIVEROS R Admitting Unavailable Michael VIVEROS Attending Unavailable Michael VIVEROS Referring Unavailable ESTELA CHUNG Attending Unavailable Giedraitis , Andrius uSsanytdelfino Attending Unavailable Giedraitis , Andrius Vytautnico Attending Unavailable Giedraitis , Andrius Vytautnico Attending Unavailable Viktor Sotelo MD Primary Care Provider [phone] Michael Viveros MD Attending Provider Nimesh Cerda [...] (qualifier value), Itching, Unknown [facility] (2 sources) HYDROmorphone Drug Allergy 9 Itching [facility] (19 sources) HYDROmorphone; 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: [HYDROmorphone] Drug Allergy 9 Itching [facility] (1 source) HYDROmorphone Drug Allergy [facility] (1 source) Fluarix (PF) Drug allergy (disorder) [address] [facility] Medications Current Medications Medication Drug [...] cysto., # 2 tab(s), Refills(s) 0, Pharmacy: [facility]/pharmacy #[id number], 167, cm, 04/28/23 10:12:00 EST, Height/Length Dosing, 111, kg, 04/28/23 10:12:00 EST, Weight Dosing Start Date: 06/02/24 Status: Ordered Start: 03-03-2019 End: 03-05-2019 take [id number] mg by mouth every twelve hours Ciprofloxacin [...] procedure, # 2 cap(s), Refills(s) 0, Pharmacy: [facility]/pharmacy #[id number], 167, cm, 09/03/22 13:32:00 EDT, [...] Comment on above: Take 1 capsule [address] [facility] once daily. LORazepam 1 mg oral tablet [...] 2019 1:00am February 18, 2020 5:44pm Vit No.424-Oakg-Beqhr ( Vitamin) 27 mg iron- 800 mcg Tablet (20 sources) Start: 12-11-2021 End: 09-03-2022 take 1 tablet by mouth once daily Vit No.757-Kxej-Vwrhb ( Vitamin) 27 mg iron- 800 mcg Tablet Discontinued 1 TAB PO Daily December 10, 2021 11:00pm September 03, 2022 6:39pm Start: 12-11-2021 End: 09-03-2022 take 1 tablet by mouth once daily Vit No.369-Sjhq-Sjiyp ( Vitamin) 27 mg iron- 800 mcg Tablet Discontinued 1 TAB PO Daily December 11, 2021 12:00am September 03, 2022 7:39pm Start: 12-11-2021 take 1 tablet by tejas th once daily Vit No.455-Zjoy-Grfry ( Vitamin) 27 mg iron- 800 mcg Tablet Active 1 TAB PO Daily December 10, 2021 11:00pm Start: 12-11-2021 take 1 tablet by tejas th once daily Vit No.097-Vcvl-Erecs ( Vitamin) 27 mg iron- 800 mcg [...] 12.5 mg supposi tory Discontinued 12.5 MG DE Q6H as needed for Nausea And Vomiting [...] 1 tablet by mouth twice daily Pyridostigmine Buras 60 mg tablet Discontinued 1 TAB PO [...] 4 Episodic Other aftercare (1 source) Other [facility] (current) drug therapy; 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: [OTH SNF CURRENT DRUG THERAPY] Onset: 3 Episodic Other aftercare (1 source) Long-term current use of anticoagulant; 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: [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] Onset: 4 Episodic [...] 0 08-31-2024 MR cervical spine wo con [facility] [place] [address] MRI Report Signed Patient: Maricarmen Anderson MR#: [id number] : 1980 Acct:[id number] Age/Sex: 43 / F ADM Date: 08/31/24 Loc: MR Room: Type: [facility] Attending Dr: Tete Snell MD Copies [...] Praful Manley M.D.08/31/2024 10:20 AM Dictation Location: [place] [address] Transcribed By: [facility] 08/31/24 1020 Dictated By: Praful Manley MD 08/31/24 0947 Signed By: 08/31/24 1020 Normal [facility] Magnetic resonance imaging r eportOrdered By: Praful Manley on 08-31-2024 Study report [facility] [place] [address] MRI Report Signed Patient: Maricarmen Anderson MR#: [id number] : 1980 Acct:[id number] Age/Sex: 43 / F ADM Date: 5 [...] Praful Manley M.D.08/31/2024 10:20 AM Dictation Location: [place] [address] Transcribed By: [facility] 08/31/24 1020 Dictated By: Praful Manley MD 08/31/24 0947 Signed By: 08/31/24 1020 [facility] Work Phone: INR in Platelet poor plasma by Coagulation assayon 07-11-2024 INR Coag (PPP) [Relative time] INR in Platelet poor plasma by Coagulation assay [facility] Comment on above: DESIRED INR:2.0-3.0 CONDITIONS NOT LISTED BELOW2.5-3.5 FOR PROSTHETIC HEART VALVE REPLACEMENT2.5-3.5 RECURRENT THROMBOSIS No Panel Informationon 07-11 Human Chorionic Gonadotropin, Qual Negative NEGATIVE [facility] Prothrombin time (PT)on 06-23 PT Coag (PPP) [Time] Prothrombin time (PT) 9.0- 11.6 [facility] Basophils Auto (Bld) [#/Vol] on 07-05-2024 Basophils (Bld) [#/Vol] Automated basophil count 0.0-0.1 [facility] Basophils/100 WBC Auto (Bld) on 07-05-2024 Basophils/100 WBC (Bld) Automated basophil % 0.2-2.0 [facility] Eosinophils/100 WBC Auto (Bl d)on 07-05-2024 Eosinophils/100 WBC (Bld) Automated eosinophil % 0.9-7.0 [facility] Erythrocyte distribution wid th Auto (RBC) [Ratio]on 07-05-2024 Erythrocyte distribution width (RBC) [Ratio] Erythrocyte distribution width [Ratio] by Automated count 11.0-15.0 [facility] Estimated glomerular filtrat ion rate (GFR) non- Americanon 07-05-2024 GFR/1.73 sq M.predicted among non-blacks MDRD (S/P/Bld) [Vol rate/Area] Estimated glomerular filtration rate (GFR) non- >=60 mL/min/1.73 m 2 [facility] Hematocrit Auto (Bld) [Volum e fraction]on 07-05-2024 Hematocrit (Bld) [Volume fraction] Hematocrit [Volume Fraction] of Blood by Automated count 36.0-48.0 [facility] Hemoglobin [Mass/volume] in Bloodon 07-05-2024 Hemoglobin (Bld) [Mass/Vol] Hemoglobin [Mass/volume] in Blood 12.0-16.0 [facility] Iron binding capacity [Mass/ volume] in Serum or Plasmaon 07-05-2024 Iron binding capacity [Mass/Vol] Iron binding capacity [Mass/volume] in Serum or Plasma 250.0-450.0 [facility] Iron saturation [Mass Fracti on] in Serum or Plasmaon 07-05-2024 Iron saturation [Mass fraction] Iron saturation [Mass Fraction] in Serum or Plasma [facility] Laboratory - Chemistry and C hemistry - challengeon 07-05-2024 Calcium [Mass/Vol] 9.2 mg/dL 8.5-10.1 [facility] Chloride [Moles/Vol] 105 mmol/L 98-107 [facility] CO2 [Moles/Vol] 28.3 mmol/L 21.0-32.[address] [facility] Cobalamin (Vitamin B12) [Mass/Vol] 617 pg/mL 232-1245 [facility] Comment on above: Performed at: - [employer] [address] [id number] Director: Prabhakar Warren PhD, Phone: [phone] Creatinine [Mass/Vol] 0.94 mg/dL 0.55-1.02 [facility] Ferritin [Mass/Vol] 76.0 ng/mL 8.0-252.[address] [facility] GFR/1.73 sq M.predicted MDRD (S/P/Bld) [Vol rate/Area] mL/min/{1.73_m2} >=60 mL/min/1.73 m 2 [facility] Glucose [Mass/Vol] 96 mg/dL 74-106 [facility] Iron [Mass/Vol] 116.0 ug/dL 50.0-170.[address] [facility] Potassium [Moles/Vol] 4.3 mmol/L 3.5-5.1 [facility] Sodium [Moles/Vol] 143 mmol/L 136-145 [facility] Urea nitrogen [Mass/Vol] 11.0 mg/dL 7.0-18.0 [facility] Urea nitrogen/Creatinine [Mass ratio] 11.7 mg/mg [facility] Laboratory - Hematology and Cell countson 07-05-2024 Immature granulocytes/100 WBC (Bld) 0.2 % 0.0-0.5 [facility] Leukocytes [#/volume] correc nneka for nucleated erythrocytes in Blood by Automated counon 07-05-2024 WBC corrected for nucl RBC Auto (Bld) [#/Vol] Leukocytes [#/volume] corrected for nucleated erythrocytes in Blood by Automated coun 4.0-11.0 [facility] Lymphocytes Auto (Bld) [#/Vo l]on 07-05-2024 Lymphocytes (Bld) [#/Vol] Lymphocytes [#/volume] in Blood by Automated count 1.2-3.8 [facility] Lymphocytes/100 WBC Auto (Bl d)on 07-05-2024 Lymphocytes/100 WBC (Bld) Lymphocytes/100 leukocytes in Blood by Automated count 20.5-60.0 [facility] MCH Auto (RBC) [Entitic mass ]on 07-05-2024 MCH (RBC) [Entitic mass] MCH [Entitic mass] by Automated count High 26.7-34.0 [facility] MCHC Auto (RBC) [Mass/Vol]on 07-05-2024 MCHC (RBC) [Mass/Vol] MCHC [Mass/volume] by Automated count 29.9-35.2 [facility] MCV Auto (RBC) [Entitic vol] on 07-05-2024 MCV (RBC) [Entitic vol] MCV [Entitic volume] by Automated count High 81.0-99.0 [facility] Main OR Intraoperative Recor don 07-05-2024 Main OR Intraoperative Record Main OR Intraoperative Record IntraOp Document Type FTURO Summary Primary Physician: Michael VIVEROS MD Finalized Date/Time: 07/05/24 13:38:20 Pt. Name: JUSTIN MARICARMEN Petersen/Sex: 1980 Female Med Rec #: [id number] Physician: Michael VIVEROS MD Financial #: [id number] Pt. Type: O Room/Bed: / Admit/Disch: 07/05/24 [...] Sheyla Mullins Role Performed Surgeon - Primary Internal Medicine Veterinary Technician - Primary Scrub - Primary Time In [...] Prep Agents Betadine Solution Skin. Condition Intact, Leota, Warm, & Description N/A Dry Additional None [...] 07/05/24 13:38 Jolie Caldwell 07/05/24 13:38 Normal [facility] Main OR Preoperative Recordo n 07-05-2024 Main OR Preoperative Record Main OR Preoperative Record Holding Area Document Type FTURO Summary Primary Physician: Michael VIVEROS MD Finalized Date/Time: 07/05/24 13:21:29 Pt. Name: MARICARMEN ANDERSON/Sex: 1980 Female Med Rec #: [id number] Physician: Michael VIVEROS MD Financial #: [id number] Pt. Type: O Room/Bed: / Admit/Disch: 07/05/24 [...] Complaints of Pain: No Skin Integrity Intact, Leota, Warm, & Dry Vitals - EU Blood [...] 13:09 Jolie Caldwell 07/05/24 13:21 Normal [facility] Monocytes Auto (Bld) [#/Vol] on 07-05-2024 Monocytes (Bld) [#/Vol] Automated blood monocyte count 0.3-0.8 [facility] Monocytes/100 WBC Auto (Bld) on 07-05-2024 Monocytes/100 WBC (Bld) Automated monocyte % 1.7-12.0 [facility] Neutrophils Auto (Bld) [#/Vo l]on 07-05-2024 Neutrophils (Bld) [#/Vol] Neutrophils [#/volume] in Blood by Automated count 1.4-6.5 [facility] Neutrophils/100 WBC Auto (Bl d)on 07-05-2024 Neutrophils/100 WBC (Bld) Automated neutrophil % 43.0-75.0 [facility] No Panel Informationon 07-05 25-Hydroxy Vitamin D Total 31.2 ng/mL [facility] Comment on above: <20 ng/mL Vit D defi cient20-<30 ng/mL Vit D bcrxyhjjvzrd37-470 ng/mL Vit D sufficient>100 ng/mL Potential Toxicity Eosinophils # (Auto) 0.1 10 3/uL 0.0-0.7 [facility] Immature Granulocyte # (Auto) 0.01 10 3/uL 0.00-0.03 [facility] Operative Reporton Operative Report Operative Report Patient: [...] up arranged. Urethra was dilated from 22-30 Liberian with Pavel sounds. Normal [facility] Comment on above: Result Comment: Elec tronically Signed By: Michael VIVEROS MD\.br\Date and Time Signed: 07/05/24 13:40 EST Platelet mean volume Auto (B ld) [Entitic vol]on 07-05-2024 Platelet mean volume (Bld) [Entitic vol] Platelet mean volume [Entitic volume] in Blood by Automated count 9.5-13.5 [facility] Platelets Auto (Bld) [#/Vol] on 07-05-2024 Platelets (Bld) [#/Vol] Platelets [#/volume] in Blood by Automated count 150-450 [facility] RBC Auto (Bld) [#/Vol]on RBC (Bld) [#/Vol] Erythrocytes [#/volu me] in Blood by Automated count Low 4.20-5.40 [facility] Serum or plasma anion gap de terminationon 07-05-2024 Anion gap [Moles/Vol] Serum or plasma an ion gap determination [facility] CT abdomen pelvis w conon [place] [address] CT Scan Report Signed Patient: Maricarmen Anderson MR#: [id number] : 1980 Acct:[id number] Age/Sex: 43 / F ADM Date: 07/04/24 Loc: CT Room: Type: [facility] Attending Dr: Michael Viveros MD Copies [...] Oro Jr., D.OBeatris07/04/2024 2:58 PM Dictation Location: [place] [address] Transcribed By: [facility] 07/04/24 145 Dictated By: Mitchel Oro Jr, DO 07/04/241454 Signed By: 07/04/241457 Normal [facility] Basophils Auto (Bld) [#/Vol] on 06-02-2024 Basophils (Bld) [#/Vol] Automated basophil count 0.0-0.1 [facility] Basophils/100 WBC Auto (Bld) on 06-02-2024 Basophils/100 WBC (Bld) Automated basophil % 0.2-2.0 [facility] Cholesterol in LDL Calc [Mas s/Vol]on 06-02-2024 Cholesterol in LDL [Mass/Vol] Cholesterol in LDL [Mass/volume] in Serum or Plasma by calculation [facility] Comment on above: <100 mg/dl [id number] 0-129 mg/dl NEAR OR ABOVE [id number] mg/dl BORDERLINE [id number] mg/dl HIGH>190 mg/dl VERY HIGH Cholesterol in VLDL Calc [Ma ss/Vol]on 06-02-2024 Cholesterol in VLDL [Mass/Vol] Cholesterol in VLDL [Mass/volume] in Serum or Plasma by calculation [facility] Eosinophils/100 WBC Auto (Bl d)on 06-02-2024 Eosinophils/100 WBC (Bld) Automated eosinophil % 0.9-7.0 [facility] Erythrocyte distribution wid th Auto (RBC) [Ratio]on 06-02-2024 Erythrocyte distribution width (RBC) [Ratio] Erythrocyte distribution width [Ratio] by Automated count 11.0-15.0 [facility] Estimated glomerular filtrat ion rate (GFR) non- Americanon 06-02-2024 GFR/1.73 sq M.predicted among non-blacks MDRD (S/P/Bld) [Vol rate/Area] Estimated glomerular filtration rate (GFR) non- Low >=60 mL/min/1.73 m 2 [facility] Glucose mean value [Mass/vol ume] in Blood Estimated from glycated hemoglobinon 06-02-2024 Average glucose Estimated from glycated hemoglobin (Bld) [Mass/Vol] Glucose mean value [Mass/volume] in Blood Estimated from glycated hemoglobin [facility] Hematocrit Auto (Bld) [Volum e fraction]on 06-02-2024 Hematocrit (Bld) [Volume fraction] Hematocrit [Volume Fraction] of Blood by Automated count 36.0-48.0 [facility] Hemoglobin [Mass/volume] in Bloodon 06-02-2024 Hemoglobin (Bld) [Mass/Vol] Hemoglobin [Mass/volume] in Blood 12.0-16.0 [facility] Iron binding capacity [Mass/ volume] in Serum or Plasmaon 06-02-2024 Iron binding capacity [Mass/Vol] Iron binding capacity [Mass/volume] in Serum or Plasma 250.0-450.0 [facility] Iron saturation [Mass Fracti on] in Serum or Plasmaon 06-02-2024 Iron saturation [Mass fraction] Iron saturation [Mass Fraction] in Serum or Plasma [facility] Laboratory - Chemistry and C hemistry - challengeon 06-02-2024 Calcium [Mass/Vol] 9.1 mg/dL 8.5-10.1 [facility] Chloride [Moles/Vol] 105 mmol/L 98-107 [facility] Cholesterol [Mass/Vol] 186 mg/dL <=200 [facility] Cholesterol in HDL [Mass/Vol] 72 mg/dL High 40-60 [facility] Comment on above: > or =60 mg/dl - LOW CARDIOVASCULAR RISK<40 mg/dl - HIGH CARDIOVASCULAR RISK CO2 [Moles/Vol] 29.9 mmol/L 21.0-32.[address] [facility] Cobalamin (Vitamin B12) [Mass/Vol] 241 pg/mL 232-1245 [facility] Comment on above: Performed at: [address], [place], [place] [id number] Director: Prabhakar Warren PhD, Phone: [phone] Creatinine [Mass/Vol] 1.16 mg/dL High 0.55-1.02 [facility] Ferritin [Mass/Vol] 78.0 ng/mL 8.0-252.[address] [facility] GFR/1.73 sq M.predicted MDRD (S/P/Bld) [Vol rate/Area] mL/min/{1.73_m2} >=60 mL/min/1.73 m 2 [facility] Glucose [Mass/Vol] 101 mg/dL 74-106 [facility] Iron [Mass/Vol] 112.0 ug/dL 50.0-170.[address] [facility] Potassium [Moles/Vol] 3.9 mmol/L 3.5-5.1 [facility] Sodium [Moles/Vol] 141 mmol/L 136-145 [facility] Triglyceride [Mass/Vol] 86 mg/dL <=150 [facility] Urea nitrogen [Mass/Vol] 7.0 mg/dL 7.0-18.0 [facility] Urea nitrogen/Creatinine [Mass ratio] 6.0 mg/mg [facility] Laboratory - Hematology and Cell countson 06-02-2024 HbA1c (Bld) [Mass fraction] 5.7 % 4.5-6.2 [facility] Comment on above: ADA RECOMMENDED LIMI T 4.0 - 6.0ADA THERAPEUTIC TARGET < 7.0ACTION SUGGESTED> 7.0 Immature granulocytes/100 WBC (Bld) 0.2 % 0.0-0.5 [facility] Leukocytes [#/volume] correc nneka for nucleated erythrocytes in Blood by Automated counon 06-02-2024 WBC corrected for nucl RBC Auto (Bld) [#/Vol] Leukocytes [#/volume] corrected for nucleated erythrocytes in Blood by Automated coun 4.0-11.0 [facility] Lymphocytes Auto (Bld) [#/Vo l]on 06-02-2024 Lymphocytes (Bld) [#/Vol] Lymphocytes [#/volume] in Blood by Automated count 1.2-3.8 [facility] Lymphocytes/100 WBC Auto (Bl d)on 06-02-2024 Lymphocytes/100 WBC (Bld) Lymphocytes/100 leukocytes in Blood by Automated count 20.5-60.0 [facility] MCH Auto (RBC) [Entitic mass ]on 06-02-2024 MCH (RBC) [Entitic mass] MCH [Entitic mass] by Automated count 26.7-34.0 [facility] MCHC Auto (RBC) [Mass/Vol]on 06-02-2024 MCHC (RBC) [Mass/Vol] MCHC [Mass/volume] by Automated count 29.9-35.2 [facility] MCV Auto (RBC) [Entitic vol] on 06-02-2024 MCV (RBC) [Entitic vol] MCV [Entitic volume] by Automated count 81.0-99.0 [facility] Monocytes Auto (Bld) [#/Vol] on 06-02-2024 Monocytes (Bld) [#/Vol] Automated blood monocyte count 0.3-0.8 [facility] Monocytes/100 WBC Auto (Bld) on 06-02-2024 Monocytes/100 WBC (Bld) Automated monocyte % 1.7-12.0 [facility] Neutrophils Auto (Bld) [#/Vo l]on 06-02-2024 Neutrophils (Bld) [#/Vol] Neutrophils [#/volume] in Blood by Automated count 1.4-6.5 [facility] Neutrophils/100 WBC Auto (Bl d)on 06-02-2024 Neutrophils/100 WBC (Bld) Automated neutrophil % 43.0-75.0 [facility] No Panel Informationon 06-02 25-Hydroxy Vitamin D Total 26.9 ng/mL [facility] Comment on above: <20 ng/mL Vit D defi cient20-<30 ng/mL Vit D hdjblsbrwkiz38-171 ng/mL Vit D sufficient>100 ng/mL Potential Toxicity Eosinophils # (Auto) 0.2 10 3/uL 0.0-0.7 [facility] Immature Granulocyte # (Auto) 0.01 10 3/uL 0.00-0.03 [facility] Platelet mean volume Auto (B ld) [Entitic vol]on 06-02-2024 Platelet mean volume (Bld) [Entitic vol] Platelet mean volume [Entitic volume] in Blood by Automated count Low 9.5-13.5 [facility] Platelets Auto (Bld) [#/Vol] on 06-02-2024 Platelets (Bld) [#/Vol] Platelets [#/volume] in Blood by Automated count 150-450 [facility] RBC Auto (Bld) [#/Vol]on RBC (Bld) [#/Vol] Erythrocytes [#/volu me] in Blood by Automated count 4.20-5.40 [facility] Serum or plasma anion gap de terminationon 06-02-2024 Anion gap [Moles/Vol] Serum or plasma an ion gap determination [facility] Serum or plasma total choles terol/high density lipoprotein (HDL) cholesterol mass edu 06-02-2024 Cholesterol.total/Chol esterol in HDL [Mass ratio] Serum or plasma total cholesterol/high density lipoprotein (HDL) cholesterol mass rat [facility] Comment on above: 3.3 - 4.4 [...] 161 TODAY - 286ml. See #2. Ordered: [id number] Measure Post Void residual urine and/or bladder capacity by US- non-imaging Urnls Dip Stick Auto w/o Microscopy POC 93902 2. Urethral stricture (N35.919: Unspecified urethral stricture, [...] been obtained. Will order Local anesthesia. Ordered: [id number] Measure Post Void residual urine and/or bladder capacity by US- non-imaging Urnls Dip Stick Auto w/o Microscopy POC 57008 3. Renal mass (N28.89: Other specified disorders [...] better look at the complex cyst. Ordered: [id number] Measure Post Void residual urine and/or bladder capacity by US- non-imaging Urnls Dip Stick Auto w/o Microscopy POC 30252 4. 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 [address] Additional Instructions: Follow up schedule Dilation Patient Education Acute Urinary Retention, Female I, Shyann Yoo, personally scribed for LORENE Torres on 06/02/2024 15:54:03. . Documentation recorded by the mari Yoo accurately reflects the services(s) I performed and decisions made by me. Authenticated by Esteal Chung PA-C on 06/02/2024 16:46:43. Problem List/Past [...] 06/02/2024 Tobac (more content not included)... Normal [facility] Comment on above: Result Comment: Elec tronically Signed By: ESTELA CHUNG PA-Cbr\Date and Time Signed: 06/02/24 16:50 EST\.br\Electronically Co-Signed By: Shyann Yoobr\Date and Time Co-Signed: 06/02/24 15:54 EST US renal BIon 05-30-2024 US renal BI [facility] [place] [address] Ultrasound Report Signed Patient: Maricarmen Anderson MR#: [id number] : 1980 Acct:[id number] Age/Sex: 43 / F ADM Date: 05/30/24 Loc: Room: Type: [facility] Attending Dr: Estela Chung PA-C Ordering Provider: Estela Chugn PA-C Date of Service: 05/30/24 US/US renal [...] Oro Jr., D.OBeatris05/30/2024 6:31 PM Dictation Location: [facility] Tech: Greta Reyes Transcribed By: RAFA 05/30/241830 Dictated By: Mitchel Oro Jr, DO 05/30/241828 Signed By: 05/30/241830 Normal [facility] APTTon 10-31-2023 aPTT Coag (Bld) [Time] 139.6 s Critically high 23.0-36. 5 [facility] Comment on above: Result Comment: IV Heparin Therapy Range: 66.0-92.0 sec Performed By: #### P TT #### [address] [address] Director Of Community Education: Breezy White MD CBCon 10-31-2023 Erythrocyte distribution width (RBC) [Ratio] 12.7 % Normal 11.8-14.4 [facility] Comment on above: Performed By: #### C BC #### [address] [address] Director Of Community Education: Breezy White MD Hematocrit (Bld) [Volume fraction] 36.5 % Normal 36.3-47.1 [facility] Comment on above: Performed By: #### C BC #### [address] [address] Director Of Community Education: Breezy White MD Hemoglobin (Bld) [Mass/Vol] 12.0 g/dL Normal 11.9-15.1 [facility] Comment on above: Performed By: #### C BC #### [address] [address] Director Of Community Education: Breezy White MD MCH (RBC) [Entitic mass] 31.9 pg Normal 25.2-33.5 [facility] Comment on above: Performed By: #### C BC #### [address] [address] Director Of Community Education: Breezy White MD MCHC (RBC) [Mass/Vol] 32.9 g/dL Normal 28.4-34.8 [facility] Comment on above: Performed By: #### C BC #### [address] [address] Director Of Community Education: Breezy White MD MCV (RBC) [Entitic vol] 97.1 fL Normal 82.6-102.9 [facility] Comment on above: Performed By: #### C BC #### [address] [address] Director Of Community Education: Breezy White MD NRBC Automated 0.0 per 100 WBC Normal 0.0 [facility] Comment on above: Performed By: #### C BC #### [address] [address] Director Of Community Education: Breezy White MD Platelet mean volume (Bld) [Entitic vol] 9.9 fL Normal 8.1-13.5 [facility] Comment on above: Performed By: #### C BC #### [address] [address] Director Of Community Education: Breezy White MD Platelets (Bld) [#/Vol] 149 10*3/uL Normal 138-453 [facility] Comment on above: Performed By: #### C BC #### [address] [address] Director Of Community Education: Breezy White MD RBC (Bld) [#/Vol] 3.76 10*6/uL Low 3.95-5.11 [facility] Comment on above: Performed By: #### C BC #### [address] [address] Director Of Community Education: Breezy White MD WBC (Bld) [#/Vol] 5.0 10*3/uL Normal 3.5-11.3 [facility] Comment on above: Performed By: #### C BC #### [address] [address] Director Of Community Education: Breezy White MD APTTon 2023 aPTT Coag (Bld) [Time] 59.7 s High 23.0-36.5 [facility] Comment on above: Result Comment: IV Heparin Therapy Range: 66.0-92.0 sec Performed By: #### P TT #### [address] [address] Director Of Community Education: Breezy White MD aPTT Coag (Bld) [Time] 75.3 s High 23.0-36.5 [facility] Comment on above: Result Comment: IV Heparin Therapy Range: 66.0-92.0 sec Performed By: #### P TT #### [address] [address] Director Of Community Education: Berezy White MD aPTT Coag (Bld) [Time] s Critically high 23.0-36. 5 [facility] Comment on above: Result Comment: IV Heparin Therapy Range: 66.0-92.0 sec Performed By: #### P TT #### [place] [address] Director Of Community Education: Breezy White MD APTTon 10-29-2023 aPTT Coag (Bld) [Time] 22.0 s Low 23.0-36.5 [facility] Comment on above: Result Comment: IV Heparin Therapy Range: 66.0-92.0 sec Performed By: #### P TT, HEPXA, CDP, BMPX, PT #### [address] [address] Director Of Community Education: Breezy White MD Basic Metab w/rfx MGon 10-28 Anion gap [Moles/Vol] 12 mmol/L Normal 9-16 [facility] Comment on above: Performed By: #### P TT, HEPXA, CDP, BMPX, PT #### [place] [address] Director Of Community Education: Breezy White MD Calcium [Mass/Vol] 8.9 mg/dL Normal 8.6-10.4 [facility] Comment on above: Performed By: #### P TT, HEPXA, CDP, BMPX, PT #### [address] [address] Director Of Community Education: Breezy White MD Chloride [Moles/Vol] 105 mmol/L Normal 98-107 [facility] Comment on above: Performed By: #### P TT, HEPXA, CDP, BMPX, PT #### [address] [address] Director Of Community Education: Breezy White MD CO2 [Moles/Vol] 22 mmol/L Normal 20-31 [facility] Comment on above: Performed By: #### P TT, HEPXA, CDP, BMPX, PT #### [address] [address] Director Of Community Education: Breezy White MD Creatinine [Mass/Vol] 0.8 mg/dL Normal 0.50-0.90 [facility] Comment on above: Performed By: #### P TT, HEPXA, CDP, BMPX, PT #### [address] [address] Director Of Community Education: Breezy White MD GFR/1.73 sq M.predicted among non-blacks MDRD (S/P/Bld) [Vol rate/Area] mL/min/{1.73_m2} Normal >60 [facility] Comment on above: Result Comment: These [...] P TT, HEPXA, CDP, BMPX, PT #### [address] [address] Director Of Community Education: Breezy White MD Glucose [Mass/Vol] 82 mg/dL Normal 74-99 [facility] Comment on above: Performed By: #### P TT, HEPXA, CDP, BMPX, PT #### [address] [address] Director Of Community Education: Breezy White MD Potassium [Moles/Vol] 4.0 mmol/L Normal 3.7-5.3 [facility] Comment on above: Performed By: #### P TT, HEPXA, CDP, BMPX, PT #### [place] [address] Director Of Community Education: Breezy White MD Sodium [Moles/Vol] 139 mmol/L Normal 136-145 [facility] Comment on above: Performed By: #### P TT, HEPXA, CDP, BMPX, PT #### [address] [address] Director Of Community Education: Breezy White MD Urea nitrogen [Mass/Vol] 10 mg/dL Normal 6-20 [facility] Comment on above: Performed By: #### P TT, HEPXA, CDP, BMPX, PT #### [place] [address] Director Of Community Education: Breezy White MD CBC with Diffon 10-29-2023 Abs. Basophil <0.03 Normal 0.00-0.20 [facility] Comment on above: Performed By: #### P TT, HEPXA, CDP, BMPX, PT #### [address] [address] Director Of Community Education: Breezy White MD Abs.Imm.Granulocyte <0.03 Normal 0.00-0.30 [facility] Comment on above: Performed By: #### P TT, HEPXA, CDP, BMPX, PT #### [facility] [address] [place] [address] Director Of Community Education: Breezy White MD Abs.Neutrophil (Seg) 2.93 k/uL Normal 1.50-8.10 [facility] Comment on above: Performed By: #### P TT, HEPXA, CDP, BMPX, PT #### [address] [address] Director Of Community Education: Breezy White MD Basophils/100 WBC (Bld) 0 % Normal 0-2 [facility] Comment on above: Performed By: #### P TT, HEPXA, CDP, BMPX, PT #### [address] [address] Director Of Community Education: Breezy White MD Eosinophils (Bld) [#/Vol] 0.08 10*3/uL Normal 0.00-0.44 [facility] Comment on above: Performed By: #### P TT, HEPXA, CDP, BMPX, PT #### [address] [address] Director Of Community Education: Breezy White MD Eosinophils/100 WBC (Bld) 2 % Normal 1-4 [facility] Comment on above: Performed By: #### P TT, HEPXA, CDP, BMPX, PT #### [address] [address] Director Of Community Education: Breezy White MD Erythrocyte distribution width (RBC) [Ratio] 12.8 % Normal 11.8-14.4 [facility] Comment on above: Performed By: #### P TT, HEPXA, CDP, BMPX, PT #### [address] [address] Director Of Community Education: Breezy White MD Hematocrit (Bld) [Volume fraction] 38.6 % Normal 36.3-47.1 [facility] Comment on above: Performed By: #### P TT, HEPXA, CDP, BMPX, PT #### [facility] [address] [place] [address] Director Of Community Education: Breezy White MD Hemoglobin (Bld) [Mass/Vol] 12.5 g/dL Normal 11.9-15.1 [facility] Comment on above: Performed By: #### P TT, HEPXA, CDP, BMPX, PT #### [address] [address] Director Of Community Education: Breezy White MD Immature granulocytes/100 WBC (Bld) 0 % Normal 0 [facility] Comment on above: Performed By: #### P TT, HEPXA, CDP, BMPX, PT #### [address] [address] Director Of Community Education: Breezy White MD Lymphocytes (Bld) [#/Vol] 1.24 10*3/uL Normal 1.10-3.70 [facility] Comment on above: Performed By: #### P TT, HEPXA, CDP, BMPX, PT #### [address] [address] Director Of Community Education: Breezy White MD Lymphocytes/100 WBC (Bld) 27 % Normal 24-43 [facility] Comment on above: Performed By: #### P TT, HEPXA, CDP, BMPX, PT #### [address] [address] Director Of Community Education: Breezy White MD MCH (RBC) [Entitic mass] 31.9 pg Normal 25.2-33.5 [facility] Comment on above: Performed By: #### P TT, HEPXA, CDP, BMPX, PT #### [address] [address] Director Of Community Education: Breezy White MD MCHC (RBC) [Mass/Vol] 32.4 g/dL Normal 28.4-34.8 [facility] Comment on above: Performed By: #### P TT, HEPXA, CDP, BMPX, PT #### [address] [place] [address] Director Of Community Education: Breezy White MD MCV (RBC) [Entitic vol] 98.5 fL Normal 82.6-102.9 [facility] Comment on above: Performed By: #### P TT, HEPXA, CDP, BMPX, PT #### [place] [address] Director Of Community Education: Breezy White MD Monocytes (Bld) [#/Vol] 0.35 10*3/uL Normal 0.10-1.20 [facility] Comment on above: Performed By: #### P TT, HEPXA, CDP, BMPX, PT #### [place] [address] Director Of Community Education: Breezy White MD Monocytes/100 WBC (Bld) 8 % Normal 3-12 [facility] Comment on above: Performed By: #### P TT, HEPXA, CDP, BMPX, PT #### [place] [address] Director Of Community Education: Breezy White MD Neutrophil (Seg) 63 % Normal 36-65 [facility] Comment on above: Performed By: #### P TT, HEPXA, CDP, BMPX, PT #### [place] [address] Director Of Community Education: Breezy White MD NRBC Automated 0.0 per 100 WBC Normal 0.0 [facility] Comment on above: Performed By: #### P TT, HEPXA, CDP, BMPX, PT #### [place] [address] Director Of Community Education: Breezy White MD Platelet mean volume (Bld) [Entitic vol] 10.2 fL Normal 8.1-13.5 [facility] Comment on above: Performed By: #### P TT, HEPXA, CDP, BMPX, PT #### [address] [address] Director Of Community Education: Breezy White MD Platelets (Bld) [#/Vol] 152 10*3/uL Normal 138-453 [facility] Comment on above: Performed By: #### P TT, HEPXA, CDP, BMPX, PT #### [address] [address] Director Of Community Education: Breezy White MD RBC (Bld) [#/Vol] 3.92 10*6/uL Low 3.95-5.11 [facility] Comment on above: Performed By: #### P TT, HEPXA, CDP, BMPX, PT #### [address] [address] Director Of Community Education: Breezy White MD WBC (Bld) [#/Vol] 4.6 10*3/uL Normal 3.5-11.3 [facility] Comment on above: Performed By: #### P TT, HEPXA, CDP, BMPX, PT #### [address] [address] Director Of Community Education: Breezy White MD Heparin Anti-Xaon 10-29-2023 Heparin Anti-Xa 1.59 IU/L Normal [facility] Comment on above: Performed By: #### P TT, HEPXA, CDP, BMPX, PT #### [address] [address] Director Of Community Education: Breezy White MD Laboratory - Coagulationon 0 10-29-2023 aPTT Coag (Bld) [Time] 102.5 s 48.2-68.6 [facility] Comment on above: RESULTS CALLED TO YAMILE WAGNER RN @BY Tanja Jj at 0615 PTon 10-29-2023 INR Coag (PPP) [Relative time] 1.1 {INR} Normal [facility] Comment on above: Result Comment: Therapeutic Range: Moderate Anticoagulant Intensity: INR = 2.0-3.0 High Anticoagulant Intensity: INR = 2.5-3.5 Performed By: #### P TT, HEPXA, CDP, BMPX, PT #### [address] [place], [place] [id number] Director Of Community Education: Breezy White MD PT Coag (PPP) [Time] 13.8 s Normal 11.7-14.9 [facility] Comment on above: Performed By: #### P TT, HEPXA, CDP, BMPX, PT #### [address] [place] [address] Director Of Community Education: Breezy White MD Activated partial thrombopla stin time (aPTT) in platelet poor plasma by coagulation aon 10-28-2023 aPTT Coag (PPP) [Time] 26.7 s 22.3-36.2 [facility] Basophils Auto (Bld) [#/Vol] on 10-28-2023 Basophils (Bld) [#/Vol] 0.0 10 3/uL 0.0-0.1 [facility] Basophils/100 WBC Auto (Bld) on 10-28-2023 Basophils/100 WBC (Bld) 0.4 % 0.2-2.0 [facility] Eosinophils/100 WBC Auto (Bl d)on 10-28-2023 Eosinophils/100 WBC (Bld) 1.1 % 0.9-7.0 [facility] Erythrocyte distribution wid th Auto (RBC) [Ratio]on 10-28-2023 Erythrocyte distribution width (RBC) [Ratio] 12.8 % 11.0-15.0 [facility] Estimated glomerular filtrat ion rate (GFR) non- Americanon 10-28-2023 GFR/1.73 sq M.predicted among non-blacks MDRD (S/P/Bld) [Vol rate/Area] mL/min/{1.73_m2} >=60 [facility] Globulin Calc (S) [Mass/Vol] on 10-28-2023 Globulin (S) [Mass/Vol] 3.6 g/dL [facility] Hematocrit Auto (Bld) [Volum e fraction]on 10-28-2023 Hematocrit (Bld) [Volume fraction] 35.3 % 36.0-48.0 [facility] Hemoglobin [Mass/volume] in Bloodon 10-28-2023 Hemoglobin (Bld) [Mass/Vol] 11.6 g/dL 12.0-16.0 [facility] INR in Platelet poor plasma by Coagulation assayon 10-28-2023 INR Coag (PPP) [Relative time] 0.98 {INR} [facility] Comment on above: DESIRED INR:2.0-3.0 CONDITIONS NOT LISTED BELOW2.5-3.5 FOR PROSTHETIC HEART VALVE REPLACEMENT2.5-3.5 RECURRENT THROMBOSIS Laboratory - Chemistry and C hemistry - challengeon 10-28-2023 Albumin [Mass/Vol] 3.2 g/dL 3.4-5.0 [facility] ALP [Catalytic activity/Vol] 82 U/L 46-116 [facility] ALT [Catalytic activity/Vol] 12 U/L 14-59 [facility] AST [Catalytic activity/Vol] 15 U/L 15-37 [facility] Bilirubin [Mass/Vol] 0.4 mg/dL 0.2-1.0 [facility] Calcium [Mass/Vol] 9.1 mg/dL 8.5-10.1 [facility] Chloride [Moles/Vol] 107 mmol/L 98-107 [facility] CO2 [Moles/Vol] 27.8 mmol/L 21.0-32.[address] [facility] Creatinine [Mass/Vol] 0.92 mg/dL 0.55-1.02 [facility] GFR/1.73 sq M.predicted MDRD (S/P/Bld) [Vol rate/Area] mL/min/{1.73_m2} >=60 [facility] Glucose [Mass/Vol] 90 mg/dL 74-106 [facility] Natriuretic peptide B (Bld) [Mass/Vol] 152.0 pg/mL <=450.0 [facility] Potassium [Moles/Vol] 4.0 mmol/L 3.5-5.1 [facility] Protein [Mass/Vol] 6.8 g/dL 6.4-8.2 [facility] Sodium [Moles/Vol] 141 mmol/L 136-145 [facility] Urea nitrogen [Mass/Vol] 14.0 mg/dL 7.0-18.0 [facility] Urea nitrogen/Creatinine [Mass ratio] 15.2 mg/mg [facility] Laboratory - Hematology and Cell countson 10-28-2023 Immature granulocytes/100 WBC (Bld) 0.2 % 0.0-0.5 [facility] Leukocytes [#/volume] correc nneka for nucleated erythrocytes in Blood by Automated counon 10-28-2023 WBC corrected for nucl RBC Auto (Bld) [#/Vol] 5.5 10 3/uL 4.0-11.0 [facility] Lymphocytes Auto (Bld) [#/Vo l]on 10-28-2023 Lymphocytes (Bld) [#/Vol] 1.4 10 3/uL 1.2-3.8 [facility] Lymphocytes/100 WBC Auto (Bl d)on 10-28-2023 Lymphocytes/100 WBC (Bld) 25.2 % 20.5-60.0 [facility] MCH Auto (RBC) [Entitic mass ]on 10-28-2023 MCH (RBC) [Entitic mass] 31.8 pg 26.7-34.0 [facility] MCHC Auto (RBC) [Mass/Vol]on 10-28-2023 MCHC (RBC) [Mass/Vol] 32.9 g/dL 29.9-35.2 [facility] MCV Auto (RBC) [Entitic vol] on 10-28-2023 MCV (RBC) [Entitic vol] 96.7 fL 81.0-99.0 [facility] Monocytes Auto (Bld) [#/Vol] on 10-28-2023 Monocytes (Bld) [#/Vol] 0.4 10 3/uL 0.3-0.8 [facility] Monocytes/100 WBC Auto (Bld) on 10-28-2023 Monocytes/100 WBC (Bld) 7.3 % 1.7-12.0 [facility] Neutrophils Auto (Bld) [#/Vo l]on 10-28-2023 Neutrophils (Bld) [#/Vol] 3.6 10 3/uL 1.4-6.5 [facility] Neutrophils/100 WBC Auto (Bl d)on 10-28-2023 Neutrophils/100 WBC (Bld) 65.8 % 43.0-75.0 [facility] No Panel Informationon 10-27 Eosinophils # (Auto) 0.1 10 3/uL 0.0-0.7 [facility] Immature Granulocyte # (Auto) 0.01 10 3/uL 0.00-0.03 [facility] Troponin I High Sensitivity 4.1 pg/mL 4.0-51.3 [facility] Comment on above: CUT-OFF POINTS HAVE [...] volume (Bld) [Entitic vol] 9.4 fL 9.5-13.5 [facility] Platelets Auto (Bld) [#/Vol] on 10-28-2023 Platelets (Bld) [#/Vol] 154 10 3/uL 150-450 [facility] Prothrombin time (PT)on PT Coag (PPP) [Time] 10.4 s 9.0-11.6 [facility] RBC Auto (Bld) [#/Vol]on RBC (Bld) [#/Vol] 3.65 10 6/uL 4.20-5.[address] [facility] Serum or plasma albumin/glob ulin mass ratioon 10-28-2023 Albumin/Globulin [Mass ratio] 0.9 {ratio} [facility] Serum or plasma anion gap de terminationon 10-28-2023 Anion gap [Moles/Vol] 10.2 mmol/L [facility] Basophils Auto (Bld) [#/Vol] on 10-27-2023 Basophils (Bld) [#/Vol] 0.0 10 3/uL 0.0-0.1 [facility] Basophils/100 WBC Auto (Bld) on 10-27-2023 Basophils/100 WBC (Bld) 0.6 % 0.2-2.0 [facility] Eosinophils/100 WBC Auto (Bl d)on 10-27-2023 Eosinophils/100 WBC (Bld) 1.9 % 0.9-7.0 [facility] Erythrocyte distribution wid th Auto (RBC) [Ratio]on 10-27-2023 Erythrocyte distribution width (RBC) [Ratio] 13.0 % 11.0-15.0 [facility] Estimated glomerular filtrat ion rate (GFR) non- Americanon 10-27-2023 GFR/1.73 sq M.predicted among non-blacks MDRD (S/P/Bld) [Vol rate/Area] mL/min/{1.73_m2} >=60 [facility] Globulin Calc (S) [Mass/Vol] on 10-27-2023 Globulin (S) [Mass/Vol] 3.3 g/dL [facility] Hematocrit Auto (Bld) [Volum e fraction]on 10-27-2023 Hematocrit (Bld) [Volume fraction] 34.1 % 36.0-48.0 [facility] Hemoglobin [Mass/volume] in Bloodon 10-27-2023 Hemoglobin (Bld) [Mass/Vol] 11.0 g/dL 12.0-16.0 [facility] INR in Platelet poor plasma by Coagulation assayon 10-27-2023 INR Coag (PPP) [Relative time] 1.02 {INR} [facility] Comment on above: DESIRED INR:2.0-3.0 CONDITIONS NOT LISTED BELOW2.5-3.5 FOR PROSTHETIC HEART VALVE REPLACEMENT2.5-3.5 RECURRENT THROMBOSIS Laboratory - Chemistry and C hemistry - challengeon 10-27-2023 Albumin [Mass/Vol] 2.8 g/dL 3.4-5.0 [facility] ALP [Catalytic activity/Vol] 74 U/L 46-116 [facility] ALT [Catalytic activity/Vol] 12 U/L 14-59 [facility] AST [Catalytic activity/Vol] 11 U/L 15-37 [facility] Bilirubin [Mass/Vol] 0.5 mg/dL 0.2-1.0 [facility] Calcium [Mass/Vol] 9.0 mg/dL 8.5-10.1 [facility] Chloride [Moles/Vol] 106 mmol/L 98-107 [facility] CO2 [Moles/Vol] 25.5 mmol/L 21.0-32.[address] [facility] Creatinine [Mass/Vol] 0.76 mg/dL 0.55-1.02 [facility] GFR/1.73 sq M.predicted MDRD (S/P/Bld) [Vol rate/Area] mL/min/{1.73_m2} >=60 [facility] Glucose [Mass/Vol] 87 mg/dL 74-106 [facility] Lactate [Moles/Vol] 1.1 mmol/L 0.4-2.[address] [facility] Potassium [Moles/Vol] 4.2 mmol/L 3.5-5.1 [facility] Protein [Mass/Vol] 6.1 g/dL 6.4-8.2 [facility] Sodium [Moles/Vol] 140 mmol/L 136-145 [facility] Urea nitrogen [Mass/Vol] 8.0 mg/dL 7.0-18.0 [facility] Urea nitrogen/Creatinine [Mass ratio] 10.5 mg/mg [facility] Laboratory - Coagulationon 0 10-27-2023 aPTT Coag (Bld) [Time] 81.9 s 48.2-68.6 [facility] Comment on above: RESULTS CALLED TO Lin COFFEY)@BY Estela Montanez MLT at 0504 Laboratory - Hematology and Cell countson 10-27-2023 Immature granulocytes/100 WBC (Bld) 0.2 % 0.0-0.5 [facility] Leukocytes [#/volume] correc nneka for nucleated erythrocytes in Blood by Automated counon 10-27-2023 WBC corrected for nucl RBC Auto (Bld) [#/Vol] 4.7 10 3/uL 4.0-11.0 [facility] Lymphocytes Auto (Bld) [#/Vo l]on 10-27-2023 Lymphocytes (Bld) [#/Vol] 1.8 10 3/uL 1.2-3.8 [facility] Lymphocytes/100 WBC Auto (Bl d)on 10-27-2023 Lymphocytes/100 WBC (Bld) 37.7 % 20.5-60.0 [facility] MCH Auto (RBC) [Entitic mass ]on 10-27-2023 MCH (RBC) [Entitic mass] 31.4 pg 26.7-34.0 [facility] MCHC Auto (RBC) [Mass/Vol]on 10-27-2023 MCHC (RBC) [Mass/Vol] 32.3 g/dL 29.9-35.2 [facility] MCV Auto (RBC) [Entitic vol] on 10-27-2023 MCV (RBC) [Entitic vol] 97.4 fL 81.0-99.0 [facility] Monocytes Auto (Bld) [#/Vol] on 10-27-2023 Monocytes (Bld) [#/Vol] 0.3 10 3/uL 0.3-0.8 [facility] Monocytes/100 WBC Auto (Bld) on 10-27-2023 Monocytes/100 WBC (Bld) 7.2 % 1.7-12.0 [facility] Neutrophils Auto (Bld) [#/Vo l]on 10-27-2023 Neutrophils (Bld) [#/Vol] 2.5 10 3/uL 1.4-6.5 [facility] Neutrophils/100 WBC Auto (Bl d)on 10-27-2023 Neutrophils/100 WBC (Bld) 52.4 % 43.0-75.0 [facility] No Panel Informationon 10-26 Eosinophils # (Auto) 0.1 10 3/uL 0.0-0.7 [facility] Immature Granulocyte # (Auto) 0.01 10 3/uL 0.00-0.03 [facility] Platelet mean volume Auto (B ld) [Entitic vol]on 10-27-2023 Platelet mean volume (Bld) [Entitic vol] 9.9 fL 9.5-13.5 [facility] Platelets Auto (Bld) [#/Vol] on 10-27-2023 Platelets (Bld) [#/Vol] 122 10 3/uL 150-450 [facility] Prothrombin time (PT)on PT Coag (PPP) [Time] 10.8 s 9.0-11.6 [facility] RBC Auto (Bld) [#/Vol]on RBC (Bld) [#/Vol] 3.50 10 6/uL 4.20-5.[address] [facility] Serum or plasma albumin/glob ulin mass ratioon 10-27-2023 Albumin/Globulin [Mass ratio] 0.8 {ratio} [facility] Serum or plasma anion gap de terminationon 10-27-2023 Anion gap [Moles/Vol] 12.7 mmol/L [facility] Amorphous urine sedimenton 0 10-26-2023 Amorphous sediment LM Ql (Urine sed) FEW [facility] Automated epithelial cells c ount in urine sediment (number/area)on 10-26-2023 Epithelial cells Auto (Urine sed) [#/Area] MANY #/LPF NONE/RARE [facility] Bacteria [Presence] in Urine by Automatedon 10-26-2023 Bacteria Auto Ql (U) NONE SEEN #/HPF NONE SEEN [facility] Basophils Auto (Bld) [#/Vol] on 10-26-2023 Basophils (Bld) [#/Vol] 0.0 10 3/uL 0.0-0.1 [facility] Basophils/100 WBC Auto (Bld) on 10-26-2023 Basophils/100 WBC (Bld) 0.5 % 0.2-2.0 [facility] Bilirubin Auto test strip (U ) [Mass/Vol]on 10-26-2023 Bilirubin (U) [Mass/Vol] Negative NEGATIVE [facility] Casts typing in urine sedime nt by light microscopyon 10-26-2023 Casts LM Nom (Urine sed) NONE SEEN #/LPF NONE SEEN [facility] Eosinophils/100 WBC Auto (Bl d)on 10-26-2023 Eosinophils/100 WBC (Bld) 1.4 % 0.9-7.0 [facility] Erythrocyte distribution wid th Auto (RBC) [Ratio]on 10-26-2023 Erythrocyte distribution width (RBC) [Ratio] 12.7 % 11.0-15.0 [facility] Estimated glomerular filtrat ion rate (GFR) non- Americanon 10-26-2023 GFR/1.73 sq M.predicted among non-blacks MDRD (S/P/Bld) [Vol rate/Area] mL/min/{1.73_m2} >=60 [facility] Globulin Calc (S) [Mass/Vol] on 10-26-2023 Globulin (S) [Mass/Vol] 4.2 g/dL [facility] HCG ( test) IA.rapi d Ql (U)on 10-26-2023 HCG ( test) Ql (U) Negative NEGATIVE [facility] Hematocrit Auto (Bld) [Volum e fraction]on 10-26-2023 Hematocrit (Bld) [Volume fraction] 38.5 % 36.0-48.0 [facility] Hemoglobin [Mass/volume] in Bloodon 10-26-2023 Hemoglobin (Bld) [Mass/Vol] 12.7 g/dL 12.0-16.0 [facility] INR in Platelet poor plasma by Coagulation assayon 10-26-2023 INR Coag (PPP) [Relative time] 0.96 {INR} [facility] Comment on above: DESIRED INR:2.0-3.0 CONDITIONS NOT LISTED BELOW2.5-3.5 FOR PROSTHETIC HEART VALVE REPLACEMENT2.5-3.5 RECURRENT THROMBOSIS Laboratory - Chemistry and C hemistry - challengeon 10-26-2023 Glucose (U) [Mass/Vol] Negative NEGATIVE [facility] Ketones Ql (U) Negative NEGATIVE [facility] pH (U) 6.0 [pH] 5.0-9.0 [facility] Specific gravity (U) [Rel density] >=1.030 1.005-1.025 [facility] Urobilinogen Qn (U) 1.0 {José'U}/dL 0.2-1.0 [facility] Albumin [Mass/Vol] 3.4 g/dL 3.4-5.0 [facility] ALP [Catalytic activity/Vol] 98 U/L 46-116 [facility] ALT [Catalytic activity/Vol] 11 U/L 14-59 [facility] AST [Catalytic activity/Vol] 9 U/L 15-37 [facility] Bilirubin [Mass/Vol] 0.5 mg/dL 0.2-1.0 [facility] Calcium [Mass/Vol] 9.5 mg/dL 8.5-10.1 [facility] Chloride [Moles/Vol] 104 mmol/L 98-107 [facility] CO2 [Moles/Vol] 25.6 mmol/L 21.0-32.[address] [facility] Creatinine [Mass/Vol] 0.94 mg/dL 0.55-1.02 [facility] GFR/1.73 sq M.predicted MDRD (S/P/Bld) [Vol rate/Area] mL/min/{1.73_m2} >=60 [facility] Glucose [Mass/Vol] 96 mg/dL 74-106 [facility] Lactate [Moles/Vol] 2.3 mmol/L 0.4-2.[address] [facility] Comment on above: RESULTS CALLED TO Vj COFFEY)@BY YAEL JacomeT at 2012 Natriuretic peptide B (Bld) [Mass/Vol] 55.0 pg/mL <=450.0 [facility] Potassium [Moles/Vol] 3.2 mmol/L 3.5-5.1 [facility] Protein [Mass/Vol] 7.6 g/dL 6.4-8.2 [facility] Sodium [Moles/Vol] 140 mmol/L 136-145 [facility] TSH Qn 3.806 m[IU]/L 0.358-3.740 [facility] Urea nitrogen [Mass/Vol] 10.0 mg/dL 7.0-18.0 [facility] Urea nitrogen/Creatinine [Mass ratio] 10.6 mg/mg [facility] Laboratory - Hematology and Cell countson 10-26-2023 Immature granulocytes/100 WBC (Bld) 0.3 % 0.0-0.5 [facility] Laboratory - Specimen inform ationon 10-26-2023 Appearance (U) CLEAR CLEAR [facility] Color (U) LT. YELLOW YELLOW [facility] Laboratory - Urinalysison Leukocyte esterase Test strip Ql (U) SMALL NEGATIVE [facility] Nitrite Ql (U) Negative NEGATIVE [facility] Protein Ql (U) Negative NEG/TRACE [facility] Leukocytes [#/area] in Urine sediment by Automated counton 10-26-2023 WBC Auto (Urine sed) [#/Area] NONE SEEN #/HPF 0-2 [facility] Leukocytes [#/area] in Urine sediment by Microscopy high power fieldon 10-26-2023 WBC LM.HPF (Urine sed) [#/Area] 5-10 #/HPF NONE SEEN [facility] Leukocytes [#/volume] correc nneka for nucleated erythrocytes in Blood by Automated counon 10-26-2023 WBC corrected for nucl RBC Auto (Bld) [#/Vol] 6.3 10 3/uL 4.0-11.0 [facility] Lymphocytes Auto (Bld) [#/Vo l]on 10-26-2023 Lymphocytes (Bld) [#/Vol] 1.4 10 3/uL 1.2-3.8 [facility] Lymphocytes/100 WBC Auto (Bl d)on 10-26-2023 Lymphocytes/100 WBC (Bld) 21.8 % 20.5-60.0 [facility] MCH Auto (RBC) [Entitic mass ]on 10-26-2023 MCH (RBC) [Entitic mass] 31.8 pg 26.7-34.0 [facility] MCHC Auto (RBC) [Mass/Vol]on 10-26-2023 MCHC (RBC) [Mass/Vol] 33.0 g/dL 29.9-35.2 [facility] MCV Auto (RBC) [Entitic vol] on 10-26-2023 MCV (RBC) [Entitic vol] 96.5 fL 81.0-99.0 [facility] Monocytes Auto (Bld) [#/Vol] on 10-26-2023 Monocytes (Bld) [#/Vol] 0.5 10 3/uL 0.3-0.8 [facility] Monocytes/100 WBC Auto (Bld) on 10-26-2023 Monocytes/100 WBC (Bld) 7.2 % 1.7-12.0 [facility] Mucus LM Ql (Urine sed)on Mucus Ql (Urine sed) SMALL NONE SEEN [facility] Neutrophils Auto (Bld) [#/Vo l]on 10-26-2023 Neutrophils (Bld) [#/Vol] 4.3 10 3/uL 1.4-6.5 [facility] Neutrophils/100 WBC Auto (Bl d)on 10-26-2023 Neutrophils/100 WBC (Bld) 68.8 % 43.0-75.0 [facility] No Panel Informationon 10-25 Urine Culture Reflexed YES [facility] Urine Microscopic Review YES [facility] Eosinophils # (Auto) 0.1 10 3/uL 0.0-0.7 [facility] Immature Granulocyte # (Auto) 0.02 10 3/uL 0.00-0.03 [facility] Troponin I High Sensitivity <4.0 pg/mL 4.0-51.3 [facility] Comment on above: CUT-OFF POINTS HAVE [...] volume (Bld) [Entitic vol] 9.8 fL 9.5-13.5 [facility] Platelets Auto (Bld) [#/Vol] on 10-26-2023 Platelets (Bld) [#/Vol] 138 10 3/uL 150-450 [facility] Prothrombin time (PT)on PT Coag (PPP) [Time] 10.2 s 9.0-11.6 [facility] RBC Auto (Bld) [#/Vol]on RBC (Bld) [#/Vol] 3.99 10 6/uL 4.20-5.[address] [facility] Serum or plasma albumin/glob ulin mass ratioon 10-26-2023 Albumin/Globulin [Mass ratio] 0.8 {ratio} [facility] Serum or plasma anion gap de terminationon 10-26-2023 Anion gap [Moles/Vol] 13.6 mmol/L [facility] Urine hemoglobin detection b y automated test stripon 10-26-2023 Hemoglobin Auto test strip Ql (U) Negative NEGATIVE [facility] Urine sediment crystal ident ification by light microscopyon 10-26-2023 Crystals LM Nom (Urine sed) None Seen #/HPF None Seen [facility] Cardiac Device Check - Remot michael 04-24-2023 Radiology Study observation (narrative) [facility] Work Phone: Cardiac Device Check - Remot eOrdered By: Rita Olivia on 04-24-2023 [facility] Work Phone: Office Visit (Cardiology)on 01-20-2023 [...] Pacemaker; Status:Hold For - Scheduling,Retrospective Authorization; Requested for:[id number]; Class 2 obesity with body mass index [...] arrhythmias iss (more content not included)... Normal [employer] Tobacco Screening.on 023 Adult depression screening assessment No -[facility] [address] DO Work Phone: Fall risk assessment a) No falls within the last year -[facility] [address] DO Work Phone: [phone] Tobacco use status CP b) No -[facility] [address] DO Work Phone: [phone] Alanine aminotransferase [En zymatic activity/volume] in Serum or PlasmaOrdered By: Ke Cage on 12-11-2022 ALT [Catalytic activity/Vol] 13 U/L 7-52 [facility] Albumin [Mass/volume] in Ser um or Plasma by Bromocresol green (BCG) dye binding methoOrdered By: Ke Cage on 12-11-2022 Albumin BCG dye [Mass/Vol] 4.8 g/dL 3.5-5.7 [facility] Alkaline phosphatase [Enzyma tic activity/volume] in Serum or PlasmaOrdered By: Ke Cage on 12-11-2022 ALP [Catalytic activity/Vol] 83 U/L 34-104 [facility] Amphetamine Screen Ql (U)Ord ered By: Ke Cage on 12-11-2022 Amphetamines Ql (U) Negative Negative [facility] Aspartate aminotransferase [ Enzymatic activity/volume] in Serum or PlasmaOrdered By: Ke Cage on 12-11-2022 AST [Catalytic activity/Vol] 20 U/L 13-39 [facility] Automated erythrocytes count in urine sediment (number/area)Ordered By: Ke Cage on 12-11-2022 RBC Auto (Urine sed) [#/Area] 0-1 [HPF] 0-4 [facility] Automated leukocytes count i n urine sediment (number/area)Ordered By: Ke Cage on 12-11-2022 WBC Auto (Urine sed) [#/Area] 5-9 [HPF] 0-4 [facility] Barbiturates [Presence] in U rine by Screen methodOrdered By: Ke Cage on 12-11-2022 Barbiturates Screen Ql (U) Negative Negative [facility] Basophils Auto (Bld) [#/Vol] Ordered By: Ke Cage on 12-11-2022 Basophils (Bld) [#/Vol] 0.0 10*3/uL 0.0-0.2 [facility] Basophils/100 WBC Auto (Bld) Ordered By: Ke Cage on 12-11-2022 Basophils/100 WBC (Bld) 0.7 % . [facility] Benzodiazepines Screen Ql (U )Ordered By: Ke Cage on 12-11-2022 Benzodiazepines Ql (U) Negative Negative [facility] Benzoylecgonine [Presence] i n Urine by Screen methodOrdered By: Ke Cage on 12-11-2022 Benzoylecgonine Screen Ql (U) Negative Negative [facility] Bilirubin Auto test strip Ql (U)Ordered By: Ke Cage on 12-11-2022 Bilirubin Ql (U) Negative Negative [facility] Bilirubin.total [Mass/volume ] in Serum or PlasmaOrdered By: Ke Cage on 12-11-2022 Bilirubin [Mass/Vol] 0.6 mg/dL 0.3-1.0 [facility] Calcium [Mass/volume] in Ser um or PlasmaOrdered By: Ke Cage on 12-11-2022 Calcium [Mass/Vol] 9.9 mg/dL 8.6-10.3 [facility] Cannabinoids [Presence] in U rine by Screen methodOrdered By: Ke Cage on 12-11-2022 Cannabinoids Screen Ql (U) Negative Negative [facility] Comment on above: These are unconfirme d results and should not be used for legal purposes. Drug Cut-Off Concentration: AMPH 1000 ng/mL BOO 200 ng/mL HELGA 200 ng/mL COCM 300 ng/mL OP 300 ng/mL PCP 25 ng/mL THC 20 ng/mL Carbon dioxide, total [Moles /volume] in Serum or PlasmaOrdered By: Ke Cage on 12-11-2022 CO2 [Moles/Vol] 24.2 mmol/L 21.0-31.[address] [facility] Chloride [Moles/volume] in S mac or PlasmaOrdered By: Ke Cage on 12-11-2022 Chloride [Moles/Vol] 107 mmol/L 98-107 [facility] Cholesterol [Mass/volume] in Serum or PlasmaOrdered By: Eduardo Swain on 12-11-2022 Cholesterol [Mass/Vol] 229 mg/dL 140-200 [facility] Comment on above: Chol less than 200 m g/dl low riskChol 201-239 mg/dl borderline riskChol 240 mg/dl and greater high risk Cholesterol in LDL Calc [Mas s/Vol]Ordered By: Eduardo Swain on 12-11-2022 Cholesterol in LDL [Mass/Vol] 129 mg/dL 0-100 [facility] Comment on above: LDL ATP III CLASSIFI CATIONLDL less than 100 mg/dL OptimalLDL 100-129 mg/dL Near or above optimalLDL 130-159 mg/dL Borderline highLDL 160-189 mg/dL HighLDL greater than 189 mg/dL Very high Cholesterol in VLDL Calc [Ma ss/Vol]Ordered By: Eduardo Swain on 12-11-2022 Cholesterol in VLDL [Mass/Vol] 13 mg/dL [facility] Creatinine [Mass/volume] in Serum or PlasmaOrdered By: Ke Cage on 12-11-2022 Creatinine [Mass/Vol] 0.78 mg/dL 0.60-1.20 [facility] Eosinophils Auto (Bld) [#/Vo l]Ordered By: Ke Cage on 12-11-2022 Eosinophils (Bld) [#/Vol] 0.1 10*3/uL 0.0-0.45 [facility] Eosinophils/100 WBC Auto (Bl d)Ordered By: Ke Cage on 12-11-2022 Eosinophils/100 WBC (Bld) 2.2 % . [facility] Erythrocyte distribution wid th Auto (RBC) [Ratio]Ordered By: Ke Cage on 12-11-2022 Erythrocyte distribution width (RBC) [Ratio] 12.9 % 11.9-15.3 [facility] Ethanol [Mass/volume] in Ser um or PlasmaOrdered By: Ke Cage on 12-11-2022 Ethanol [Mass/Vol] mg/dL [facility] Ethanol [Mass/Vol] TNP [facility] Comment on above: Test not performed Globulin Calc (S) [Mass/Vol] Ordered By: Ke Cage on 12-11-2022 Globulin (S) [Mass/Vol] 2.7 g/dL [facility] Glucose [Mass/volume] in Ser um or PlasmaOrdered By: Ke Cage on 12-11-2022 Glucose [Mass/Vol] 87 mg/dL 70-100 [facility] Comment on above: ADA recommended refe rence rangeRandom Glucose Reference Range is dependent on time and content of last meal. Glucose of more than 200 mg/dL in a nonstressed, ambulatory subject supports the diagnosis of Diabetes Mellitus. HCG ( test) IA.rapi d Ql (U)Ordered By: Ke Cage on 12-11-2022 HCG ( test) Ql (U) Negative [facility] Hematocrit Auto (Bld) [Volum e fraction]Ordered By: Ke Cage on 12-11-2022 Hematocrit (Bld) [Volume fraction] 41.8 % 34.0-46.4 [facility] Hemoglobin [Mass/volume] in BloodOrdered By: Ke Cage on 12-11-2022 Hemoglobin (Bld) [Mass/Vol] 14.2 g/dL 11.8-15.4 [facility] Ketones Auto test strip (U) [Mass/Vol]Ordered By: Ke Cage on 12-11-2022 Ketones (U) [Mass/Vol] Negative Negative [facility] Laboratory - UrinalysisOrder ed By: Ke Cage on 12-11-2022 Hyaline casts LM Ql (Urine sed) 0-8 [LPF] 0-8 [facility] Leukocytes [#/volume] correc nneka for nucleated erythrocytes in Blood by Automated counOrdered By: Ke Cage on 12-11-2022 WBC corrected for nucl RBC Auto (Bld) [#/Vol] 5.8 10*3/uL 3.8-11.6 [facility] Lymphocytes Auto (Bld) [#/Vo l]Ordered By: Ke Cage on 12-11-2022 Lymphocytes (Bld) [#/Vol] 1.7 10*3/uL 1.00-4.8 [facility] Lymphocytes/100 WBC Auto (Bl d)Ordered By: Ke Cage on 12-11-2022 Lymphocytes/100 WBC (Bld) 28.6 % . [facility] MCH Auto (RBC) [Entitic mass ]Ordered By: Ke Cage on 12-11-2022 MCH (RBC) [Entitic mass] 32.4 pg 24.7-34.3 [facility] MCHC Auto (RBC) [Mass/Vol]Or dered By: Ke Cage on 12-11-2022 MCHC (RBC) [Mass/Vol] 33.9 g/dL 32.0-35.0 [facility] MCV Auto (RBC) [Entitic vol] Ordered By: Ke Cage on 12-11-2022 MCV (RBC) [Entitic vol] 95.4 fL 80-100 [facility] Monocyte distribution width [Entitic volume] in Blood by AutomatedOrdered By: Ke Cage on 12-11-2022 Monocyte distribution width Auto (Bld) [Entitic vol] 17.61 % 0.00-20.00 [facility] Monocytes Auto (Bld) [#/Vol] Ordered By: Ke Cage on 12-11-2022 Monocytes (Bld) [#/Vol] 0.5 10*3/uL 0.0-0.8 [facility] Monocytes/100 WBC Auto (Bld) Ordered By: Ke Cage on 12-11-2022 Monocytes/100 WBC (Bld) 8.1 % . [facility] Neutrophils Auto (Bld) [#/Vo l]Ordered By: Ke Cage on 12-11-2022 Neutrophils (Bld) [#/Vol] 3.5 10*3/uL 1.8-7.7 [facility] Neutrophils/100 WBC Auto (Bl d)Ordered By: Ke Cage on 12-11-2022 Neutrophils/100 WBC (Bld) 60.4 % . [facility] No Panel InformationOrdered By: Ke Cage on 12-11-2022 Estimated GFR (CKD-EPI) > 60.0 mL/Min [facility] Creatinine Clearance (Chem 119.76 [facility] Nucleated erythrocytes [Pres ence] in Blood by Automated countOrdered By: Ke Cage on 12-11-2022 Nucleated RBC Auto Ql (Bld) 0.1 /100{WBC} 0-0.5 [facility] Opiates [Presence] in Urine by Screen methodOrdered By: Ke Cage on 12-11-2022 Opiates Screen Ql (U) Negative Negative [facility] Phencyclidine Screen Ql (U)O rdered By: Ke Cage on 12-11-2022 Phencyclidine Ql (U) Negative Negative [facility] Platelet mean volume Auto (B ld) [Entitic vol]Ordered By: Ke Cage on 12-11-2022 Platelet mean volume (Bld) [Entitic vol] 7.9 fL 6.3-10.7 [facility] Platelets Auto (Bld) [#/Vol] Ordered By: Ke Cage on 12-11-2022 Platelets (Bld) [#/Vol] 185 10*3/uL 150-450 [facility] Potassium [Moles/volume] in Serum or PlasmaOrdered By: Ke Cage on 12-11-2022 Potassium [Moles/Vol] 3.8 mmol/L 3.5-5.1 [facility] Protein Auto test strip (U) [Mass/Vol]Ordered By: Ke Cage on 12-11-2022 Protein (U) [Mass/Vol] Negative Negative [facility] Protein [Mass/volume] in Ser um or PlasmaOrdered By: Ke Cage on 12-11-2022 Protein [Mass/Vol] 7.5 g/dL 6.4-8.9 [facility] RBC Auto (Bld) [#/Vol]Ordere d By: Ke Cage on 12-11-2022 RBC (Bld) [#/Vol] 4.38 10*6/uL 3.60-5.[address] [facility] Serum or plasma albumin/glob ulin mass ratioOrdered By: Ke Cage on 12-11-2022 Albumin/Globulin [Mass ratio] 1.8 {ratio} [facility] Serum or plasma anion gap de terminationOrdered By: Ke Cage on 12-11-2022 Anion gap [Moles/Vol] 12.6 mmol/L 6.0-15.0 [facility] Serum or plasma high density lipoprotein (HDL) cholesterol measurementOrdered By: Eduardo Swain on 12-11-2022 Cholesterol in HDL [Mass/Vol] 87 mg/dL 23- [facility] Comment on above: HDL CHOL ATP-III CLA SSIFICATION Cardiovascular RiskHDL > or equal to 60 mg/dL LOWHDL < 40 mg/dL HIGH Serum or plasma total choles terol/high density lipoprotein (HDL) cholesterol mass ratOrdered By: Eduardo Swain on 12-11-2022 Cholesterol.total/Chol esterol in HDL [Mass ratio] 2.6 {ratio} <5.0 [facility] Sodium [Moles/volume] in Ser um or PlasmaOrdered By: Ke Cage on 12-11-2022 Sodium [Moles/Vol] 140 mmol/L 136-145 [facility] Squamous epithelial cells de tection in urine sediment by light microscopyOrdered By: Ke Cage on 12-11-2022 Epithelial cells.squamous LM Ql (Urine sed) 3-4 [HPF] 0-2 [facility] Thyrotropin [Units/volume] i n Serum or PlasmaOrdered By: Eduardo Swain on 12-11-2022 TSH Qn 1.24 m[IU]/L 0.45-5.33 [facility] Triglyceride [Mass/volume] i n Serum or PlasmaOrdered By: Eduardo Swain on 12-11-2022 Triglyceride [Mass/Vol] 66 mg/dL 0-149 [facility] Comment on above: TRIG ATP III CLASSIF ICATIONTRIG less than 150 mg/dL NormalTRIG 150-199 mg/dL Borderline highTRIG 200-500 mg/dL High TRIG greater than 500 mg/dL Very highStandard traceable to the Center for Disease Conrtrol and Prevention (CDC) test method. Urea nitrogen [Mass/volume] in Serum or PlasmaOrdered By: Ke Cage on 12-11-2022 Urea nitrogen [Mass/Vol] 7 mg/dL 7-25 [facility] Urine appearanceOrdered By: Ke Cage on 12-11-2022 Appearance (U) Slightly cloudy Clear [facility] Urine bacteria detection by automated methodOrdered By: Ke Cage on 12-11-2022 Bacteria Auto Ql (U) None seen None Seen [facility] Urine colorOrdered By: Ke Cage on 12-11-2022 Color (U) Yellow Yellow [facility] Urine culture routineOrdered By: Ke Cage on 12-11-2022 Bacteria identified Cx Nom (U) 2 Days [facility] Urine glucose measurement by automated test strip (mass/volume)Ordered By: Ke Cage on 12-11-2022 Glucose Auto test strip (U) [Mass/Vol] Normal mg/dL Normal [facility] Urine hemoglobin detection b y automated test stripOrdered By: Ke Cage on 12-11-2022 Hemoglobin Auto test strip Ql (U) Negative Negative [facility] Urine leukocyte esterase det ection by automated test stripOrdered By: Ke Cage on 12-11-2022 Leukocyte esterase Auto test strip Ql (U) 2+ Negative [facility] Urine nitrite detection by a utomated test stripOrdered By: Ke Cage on 12-11-2022 Nitrite Auto test strip Ql (U) Negative Negative [facility] Urobilinogen Auto test strip (U) [Mass/Vol]Ordered By: Ke Cage on 12-11-2022 Urobilinogen (U) [Mass/Vol] Normal mg/dL Normal [facility] Vitamin D+Metabolites [Mass/ volume] in Serum or PlasmaOrdered By: Eduardo Swain on 12-11-2022 Vitamin D+Metabolites [Mass/Vol] 36.5 ng/mL 30-100 [facility] Comment on above: VITAMIN D STATUS 25( [place])VITAMIN D RANGE (ng/mL) Deficient <20 Insufficient 20 to <30Sufficient 30 to 100Reference: Franklyn MF,Benjamin NC, Andreina MARQUEZ, et al. Evaluation,treatment, and prevention of vitamin D deficiency; an Endocrine Society clinical practice guideline. JCEM. 2010; 96(7):1911-30. WBC Auto (Bld) [#/Vol]Ordere d By: Ke Cage on 12-11-2022 WBC (Bld) [#/Vol] 5.8 10*3/uL 3.8-11.6 [facility] pH Auto test strip (U)Ordere d By: Ke Cage on 12-11-2022 pH (U) 1.015 [pH] 1.001-1.030 [facility] pH (U) 6.0 [pH] 5.0-9.0 [facility] Basophils Auto (Bld) [#/Vol] Ordered By: Afshan Hines on 11-01-2022 Basophils (Bld) [#/Vol] 0.0 10*3/uL 0.0-0.2 [facility] Basophils/100 WBC Auto (Bld) Ordered By: Afshan Hines on 11-01-2022 Basophils/100 WBC (Bld) 0.9 % . [facility] Calcium [Mass/volume] in Ser um or PlasmaOrdered By: Afshan Hines on 11-01-2022 Calcium [Mass/Vol] 8.8 mg/dL 8.6-10.3 [facility] Carbon dioxide, total [Moles /volume] in Serum or PlasmaOrdered By: Afshan Hines on 11-01-2022 CO2 [Moles/Vol] 26.4 mmol/L 21.0-31.[address] [facility] Chloride [Moles/volume] in S mac or PlasmaOrdered By: Afshan Hines on 11-01-2022 Chloride [Moles/Vol] 107 mmol/L 98-107 [facility] Creatinine [Mass/volume] in Serum or PlasmaOrdered By: Afshan Hines on 11-01-2022 Creatinine [Mass/Vol] 0.82 mg/dL 0.60-1.20 [facility] Eosinophils Auto (Bld) [#/Vo l]Ordered By: Afshan Hines on 11-01-2022 Eosinophils (Bld) [#/Vol] 0.2 10*3/uL 0.0-0.45 [facility] Eosinophils/100 WBC Auto (Bl d)Ordered By: Afshan Hines on 11-01-2022 Eosinophils/100 WBC (Bld) 4.2 % . [facility] Erythrocyte distribution wid th Auto (RBC) [Ratio]Ordered By: Afshan Hines on 11-01-2022 Erythrocyte distribution width (RBC) [Ratio] 12.9 % 11.9-15.3 [facility] Glucose [Mass/volume] in Ser um or PlasmaOrdered By: Afshan Hines on 11-01-2022 Glucose [Mass/Vol] 74 mg/dL 70-100 [facility] Comment on above: ADA recommended refe rence rangeRandom Glucose Reference Range is dependent on time and content of last meal. Glucose of more than 200 mg/dL in a nonstressed, ambulatory subject supports the diagnosis of Diabetes Mellitus. Hematocrit Auto (Bld) [Volum e fraction]Ordered By: Afshan Hines on 11-01-2022 Hematocrit (Bld) [Volume fraction] 37.5 % 34.0-46.4 [facility] Hemoglobin [Mass/volume] in BloodOrdered By: Afshan Hines on 11-01-2022 Hemoglobin (Bld) [Mass/Vol] 12.5 g/dL 11.8-15.4 [facility] Leukocytes [#/volume] correc nneka for nucleated erythrocytes in Blood by Automated counOrdered By: Afshan Hines on 11-01-2022 WBC corrected for nucl RBC Auto (Bld) [#/Vol] 5.1 10*3/uL 3.8-11.6 [facility] Lymphocytes Auto (Bld) [#/Vo l]Ordered By: Afshan Hines on 11-01-2022 Lymphocytes (Bld) [#/Vol] 1.8 10*3/uL 1.00-4.8 [facility] Lymphocytes/100 WBC Auto (Bl d)Ordered By: Afshan Hines on 11-01-2022 Lymphocytes/100 WBC (Bld) 34.7 % . [facility] MCH Auto (RBC) [Entitic mass ]Ordered By: Afshan Hines on 11-01-2022 MCH (RBC) [Entitic mass] 32.2 pg 24.7-34.3 [facility] MCHC Auto (RBC) [Mass/Vol]Or dered By: Afshan Hines on 11-01-2022 MCHC (RBC) [Mass/Vol] 33.4 g/dL 32.0-35.0 [facility] MCV Auto (RBC) [Entitic vol] Ordered By: Afshan Hines on 11-01-2022 MCV (RBC) [Entitic vol] 96.5 fL 80-100 [facility] Monocytes Auto (Bld) [#/Vol] Ordered By: Afshan Hines on 11-01-2022 Monocytes (Bld) [#/Vol] 0.3 10*3/uL 0.0-0.8 [facility] Monocytes/100 WBC Auto (Bld) Ordered By: Afshan Hines on 11-01-2022 Monocytes/100 WBC (Bld) 6.1 % . [facility] Neutrophils Auto (Bld) [#/Vo l]Ordered By: Afshan Hines on 11-01-2022 Neutrophils (Bld) [#/Vol] 2.8 10*3/uL 1.8-7.7 [facility] Neutrophils/100 WBC Auto (Bl d)Ordered By: Afshan Hines on 11-01-2022 Neutrophils/100 WBC (Bld) 54.1 % . [facility] No Panel InformationOrdered By: Afshan Hines on 11-01-2022 Estimated GFR (CKD-EPI) > 60.0 mL/Min [facility] Creatinine Clearance (Chem 114.96 [facility] Nucleated erythrocytes [Pres ence] in Blood by Automated countOrdered By: Afshan Hines on 11-01-2022 Nucleated RBC Auto Ql (Bld) 0.1 /100{WBC} 0-0.5 [facility] Platelet mean volume Auto (B ld) [Entitic vol]Ordered By: Afshan Hines on 11-01-2022 Platelet mean volume (Bld) [Entitic vol] 7.8 fL 6.3-10.7 [facility] Platelets Auto (Bld) [#/Vol] Ordered By: Afshan Hines on 11-01-2022 Platelets (Bld) [#/Vol] 184 10*3/uL 150-450 [facility] Potassium [Moles/volume] in Serum or PlasmaOrdered By: Afshan Hines on 11-01-2022 Potassium [Moles/Vol] 4.0 mmol/L 3.5-5.1 [facility] RBC Auto (Bld) [#/Vol]Ordere d By: Afshan Hines on 11-01-2022 RBC (Bld) [#/Vol] 3.89 10*6/uL 3.60-5.[address] [facility] Serum or plasma anion gap de terminationOrdered By: Afshan Hines on 11-01-2022 Anion gap [Moles/Vol] 10.6 mmol/L 6.0-15.0 [facility] Sodium [Moles/volume] in Ser um or PlasmaOrdered By: Afshan Hines on 11-01-2022 Sodium [Moles/Vol] 140 mmol/L 136-145 [facility] Urea nitrogen [Mass/volume] in Serum or PlasmaOrdered By: Afshan Hines on 11-01-2022 Urea nitrogen [Mass/Vol] 14 mg/dL 7-25 [facility] Vitamin B12 ser/plasOrdered By: Afshan Hines on 11-01-2022 Cobalamin (Vitamin B12) [Mass/Vol] 205 pg/mL 180-914 [facility] WBC Auto (Bld) [#/Vol]Ordere d By: Afshan Hines on 11-01-2022 WBC (Bld) [#/Vol] 5.1 10*3/uL 3.8-11.6 [facility] Alanine aminotransferase [En zymatic activity/volume] in Serum or PlasmaOrdered By: Afshan Hines on 2022 ALT [Catalytic activity/Vol] 10 U/L 7-52 [facility] Albumin [Mass/volume] in Ser um or Plasma by Bromocresol green (BCG) dye binding methoOrdered By: Afshan Hines on 2022 Albumin BCG dye [Mass/Vol] 3.4 g/dL 3.5-5.7 [facility] Alkaline phosphatase [Enzyma tic activity/volume] in Serum or PlasmaOrdered By: Afshan Hines on 2022 ALP [Catalytic activity/Vol] 66 U/L 34-104 [facility] Aspartate aminotransferase [ Enzymatic activity/volume] in Serum or PlasmaOrdered By: Afshan Hines on 2022 AST [Catalytic activity/Vol] 15 U/L 13-39 [facility] Bilirubin.total [Mass/volume ] in Serum or PlasmaOrdered By: Afshan Hines on 2022 Bilirubin [Mass/Vol] 0.7 mg/dL 0.3-1.0 [facility] Globulin Calc (S) [Mass/Vol] Ordered By: Afshan Hines on 2022 Globulin (S) [Mass/Vol] 2.2 g/dL [facility] Protein [Mass/volume] in Ser um or PlasmaOrdered By: Afshan Hines on 2022 Protein [Mass/Vol] 5.6 g/dL 6.4-8.9 [facility] Serum or plasma albumin/glob ulin mass ratioOrdered By: Afshan Hines on 2022 Albumin/Globulin [Mass ratio] 1.5 {ratio} [facility] Cholesterol [Mass/volume] in Serum or PlasmaOrdered By: Nimesh Cerda on 10-29-2022 Cholesterol [Mass/Vol] 181 mg/dL 140-200 [facility] Comment on above: Chol less than 200 m g/dl low riskChol 201-239 mg/dl borderline riskChol 240 mg/dl and greater high risk Cholesterol in LDL Calc [Mas s/Vol]Ordered By: Nimesh Cerda on 10-29-2022 Cholesterol in LDL [Mass/Vol] 99 mg/dL 0-100 [facility] Comment on above: LDL ATP III CLASSIFI CATIONLDL less than 100 mg/dL OptimalLDL 100-129 mg/dL Near or above optimalLDL 130-159 mg/dL Borderline highLDL 160-189 mg/dL HighLDL greater than 189 mg/dL Very high Cholesterol in VLDL Calc [Ma ss/Vol]Ordered By: Nimesh Cerda on 10-29-2022 Cholesterol in VLDL [Mass/Vol] 18 mg/dL [facility] Serum or plasma high density lipoprotein (HDL) cholesterol measurementOrdered By: Nimesh Cerda on 10-29-2022 Cholesterol in HDL [Mass/Vol] 64 mg/dL 35-85 [facility] Comment on above: HDL CHOL ATP-III CLA SSIFICATION Cardiovascular RiskHDL > or equal to 60 mg/dL LOWHDL < 40 mg/dL HIGH Serum or plasma total choles terol/high density lipoprotein (HDL) cholesterol mass ratOrdered By: Nimesh Cerda on 10-29-2022 Cholesterol.total/Chol esterol in HDL [Mass ratio] 2.8 {ratio} <5.0 [facility] Thyrotropin [Units/volume] i n Serum or PlasmaOrdered By: Nimesh Cerda on 10-29-2022 TSH Qn 0.60 m[IU]/L 0.45-5.33 [facility] Triglyceride [Mass/volume] i n Serum or PlasmaOrdered By: Nimesh Cerda on 10-29-2022 Triglyceride [Mass/Vol] 92 mg/dL 0-149 [facility] Comment on above: TRIG ATP III CLASSIF ICATIONTRIG less than 150 mg/dL NormalTRIG 150-199 mg/dL Borderline highTRIG 200-500 mg/dL High TRIG greater than 500 mg/dL Very highStandard traceable to the Center for Disease Conrtrol and Prevention (CDC) test method. Vitamin D+Metabolites [Mass/ volume] in Serum or PlasmaOrdered By: Nimesh Cerda on 10-29-2022 Vitamin D+Metabolites [Mass/Vol] 26.3 ng/mL 30-100 [facility] Comment on above: VITAMIN D STATUS [...] 10-28-2022 ALT [Catalytic activity/Vol] 11 U/L 7-52 [facility] Albumin [Mass/volume] in Ser um or Plasma by Bromocresol green (BCG) dye binding methoOrdered By: Keven Florentino on 10-28-2022 Albumin BCG dye [Mass/Vol] 3.7 g/dL 3.5-5.7 [facility] Alkaline phosphatase [Enzyma tic activity/volume] in Serum or PlasmaOrdered By: Keven Florentino on 10-28-2022 ALP [Catalytic activity/Vol] 74 U/L 34-104 [facility] Amphetamine Screen Ql (U)Ord ered By: Keven Florentino on 10-28-2022 Amphetamines Ql (U) Negative Negative [facility] Aspartate aminotransferase [ Enzymatic activity/volume] in Serum or PlasmaOrdered By: Keven Florentino on 10-28-2022 AST [Catalytic activity/Vol] 15 U/L 13-39 [facility] Automated erythrocytes count in urine sediment (number/area)Ordered By: Keven Florentino on 10-28-2022 RBC Auto (Urine sed) [#/Area] 1-2 [HPF] 0-4 [facility] Automated leukocytes count i n urine sediment (number/area)Ordered By: Keven Florentino on 10-28-2022 WBC Auto (Urine sed) [#/Area] 10-19 [HPF] 0-4 [facility] Barbiturates [Presence] in U rine by Screen methodOrdered By: Keven Florentino on 10-28-2022 Barbiturates Screen Ql (U) Negative Negative [facility] Basophils Auto (Bld) [#/Vol] Ordered By: Keven Florentino on 10-28-2022 Basophils (Bld) [#/Vol] 0.0 10*3/uL 0.0-0.2 [facility] Basophils/100 WBC Auto (Bld) Ordered By: Keven Florentino on 10-28-2022 Basophils/100 WBC (Bld) 0.7 % . [facility] Benzodiazepines Screen Ql (U )Ordered By: Keven Florentino on 10-28-2022 Benzodiazepines Ql (U) Negative Negative [facility] Benzoylecgonine [Presence] i n Urine by Screen methodOrdered By: Keven Florentino on 10-28-2022 Benzoylecgonine Screen Ql (U) Negative Negative [facility] Bilirubin Test strip Ql (U)O rdered By: Keven Florentino on 10-28-2022 Bilirubin Ql (U) Negative Negative [facility] Bilirubin.total [Mass/volume ] in Serum or PlasmaOrdered By: Keven Florentino on 10-28-2022 Bilirubin [Mass/Vol] 0.5 mg/dL 0.3-1.0 [facility] Calcium [Mass/volume] in Ser um or PlasmaOrdered By: Keven Florentino on 10-28-2022 Calcium [Mass/Vol] 8.5 mg/dL 8.6-10.3 [facility] Cannabinoids [Presence] in U rine by Screen methodOrdered By: Keven Florentino on 10-28-2022 Cannabinoids Screen Ql (U) Negative Negative [facility] Comment on above: These are unconfirme d results and should not be used for legal purposes. Drug Cut-Off Concentration: AMPH 1000 ng/mL BOO 200 ng/mL HELGA 200 ng/mL COCM 300 ng/mL OP 300 ng/mL PCP 25 ng/mL THC 20 ng/mL Carbon dioxide, total [Moles /volume] in Serum or PlasmaOrdered By: Keven Florentino on 10-28-2022 CO2 [Moles/Vol] 24.6 mmol/L 21.0-31.[address] [facility] Chloride [Moles/volume] in S mac or PlasmaOrdered By: Keven Florentino on 10-28-2022 Chloride [Moles/Vol] 109 mmol/L 98-107 [facility] Color Auto (U)Ordered By: Anibal red Mishel on 10-28-2022 Color (U) Dark yellow Yellow [facility] Creatinine [Mass/volume] in Serum or PlasmaOrdered By: Keven Florentino on 10-28-2022 Creatinine [Mass/Vol] 0.70 mg/dL 0.60-1.20 [facility] Eosinophils Auto (Bld) [#/Vo l]Ordered By: Keven Florentino on 10-28-2022 Eosinophils (Bld) [#/Vol] 0.2 10*3/uL 0.0-0.45 [facility] Eosinophils/100 WBC Auto (Bl d)Ordered By: Keven Florentino on 10-28-2022 Eosinophils/100 WBC (Bld) 3.9 % . [facility] Erythrocyte distribution wid th Auto (RBC) [Ratio]Ordered By: Keven Florentino on 10-28-2022 Erythrocyte distribution width (RBC) [Ratio] 13.0 % 11.9-15.3 [facility] Ethanol [Mass/volume] in Ser um or PlasmaOrdered By: Keven Florentino on 10-28-2022 Ethanol [Mass/Vol] mg/dL [facility] Ethanol [Mass/Vol] TNP [facility] Comment on above: Test not performed Globulin Calc (S) [Mass/Vol] Ordered By: Keven Florentino on 10-28-2022 Globulin (S) [Mass/Vol] 2.4 g/dL [facility] Glucose [Mass/volume] in Ser um or PlasmaOrdered By: Keven Florentino on 10-28-2022 Glucose [Mass/Vol] 91 mg/dL 70-100 [facility] Comment on above: ADA recommended refe rence rangeRandom Glucose Reference Range is dependent on time and content of last meal. Glucose of more than 200 mg/dL in a nonstressed, ambulatory subject supports the diagnosis of Diabetes Mellitus. HCG ( test) IA.rapi d Ql (U)Ordered By: Keven Florentino on 10-28-2022 HCG ( test) Ql (U) Negative [facility] Hematocrit Auto (Bld) [Volum e fraction]Ordered By: Keven Florentino on 10-28-2022 Hematocrit (Bld) [Volume fraction] 36.0 % 34.0-46.4 [facility] Hemoglobin [Mass/volume] in BloodOrdered By: Keven Florentino on 10-28-2022 Hemoglobin (Bld) [Mass/Vol] 12.1 g/dL 11.8-15.4 [facility] Ketones Auto test strip (U) [Mass/Vol]Ordered By: Keven Florentino on 10-28-2022 Ketones (U) [Mass/Vol] Trace Negative [facility] - UrinalysisOrder ed By: Keven Florentino on 10-28-2022 Hyaline casts LM Ql (Urine sed) 0-8 [LPF] 0-8 [facility] Leukocytes [#/volume] correc nneka for nucleated erythrocytes in Blood by Automated counOrdered By: Keven Florentino on 10-28-2022 WBC corrected for nucl RBC Auto (Bld) [#/Vol] 6.1 10*3/uL 3.8-11.6 [facility] Lymphocytes Auto (Bld) [#/Vo l]Ordered By: Keven Florentino on 10-28-2022 Lymphocytes (Bld) [#/Vol] 1.2 10*3/uL 1.00-4.8 [facility] Lymphocytes/100 WBC Auto (Bl d)Ordered By: Keven Florentino on 10-28-2022 Lymphocytes/100 WBC (Bld) 19.9 % . [facility] MCH Auto (RBC) [Entitic mass ]Ordered By: Keven Florentino on 10-28-2022 MCH (RBC) [Entitic mass] 32.4 pg 24.7-34.3 [facility] MCHC Auto (RBC) [Mass/Vol]Or dered By: Keven Florentino on 10-28-2022 MCHC (RBC) [Mass/Vol] 33.7 g/dL 32.0-35.0 [facility] MCV Auto (RBC) [Entitic vol] Ordered By: Keven Florentino on 10-28-2022 MCV (RBC) [Entitic vol] 96.1 fL 80-100 [facility] Monocyte distribution width [Entitic volume] in Blood by AutomatedOrdered By: Keven Florentino on 10-28-2022 Monocyte distribution width Auto (Bld) [Entitic vol] 17.88 % 0.00-20.00 [facility] Monocytes Auto (Bld) [#/Vol] Ordered By: Keven Florentino on 10-28-2022 Monocytes (Bld) [#/Vol] 0.4 10*3/uL 0.0-0.8 [facility] Monocytes/100 WBC Auto (Bld) Ordered By: Keven Florentino on 10-28-2022 Monocytes/100 WBC (Bld) 6.5 % . [facility] Neutrophils Auto (Bld) [#/Vo l]Ordered By: Keven Florentino on 10-28-2022 Neutrophils (Bld) [#/Vol] 4.2 10*3/uL 1.8-7.7 [facility] Neutrophils/100 WBC Auto (Bl d)Ordered By: Keven Florentino on 10-28-2022 Neutrophils/100 WBC (Bld) 69.0 % . [facility] Nitrite Test strip Ql (U)Ord ered By: Keven Florentino on 10-28-2022 Nitrite Ql (U) Negative Negative [facility] No Panel InformationOrdered By: Keven Florentino on 10-28-2022 Estimated GFR (CKD-EPI) > 60.0 mL/Min [facility] Creatinine Clearance (Chem 136.41 [facility] Nucleated erythrocytes [Pres ence] in Blood by Automated countOrdered By: Keven Florentino on 10-28-2022 Nucleated RBC Auto Ql (Bld) 0.2 /100{WBC} 0-0.5 [facility] Opiates [Presence] in Urine by Screen methodOrdered By: Keven Florentino on 10-28-2022 Opiates Screen Ql (U) Negative Negative [facility] Phencyclidine Screen Ql (U)O rdered By: Keven Florentino on 10-28-2022 Phencyclidine Ql (U) Negative Negative [facility] Platelet mean volume Auto (B ld) [Entitic vol]Ordered By: Keven Florentino on 10-28-2022 Platelet mean volume (Bld) [Entitic vol] 7.5 fL 6.3-10.7 [facility] Platelets Auto (Bld) [#/Vol] Ordered By: Keven Florentino on 10-28-2022 Platelets (Bld) [#/Vol] 177 10*3/uL 150-450 [facility] Potassium [Moles/volume] in Serum or PlasmaOrdered By: Keven Florentino on 10-28-2022 Potassium [Moles/Vol] 3.8 mmol/L 3.5-5.1 [facility] Protein Auto test strip (U) [Mass/Vol]Ordered By: Keven Florentino on 10-28-2022 Protein (U) [Mass/Vol] Negative Negative [facility] Protein [Mass/volume] in Ser um or PlasmaOrdered By: Keven Florentino on 10-28-2022 Protein [Mass/Vol] 6.1 g/dL 6.4-8.9 [facility] RBC Auto (Bld) [#/Vol]Ordere d By: Keven Florentino on 10-28-2022 RBC (Bld) [#/Vol] 3.74 10*6/uL 3.60-5.[address] [facility] Serum or plasma albumin/glob ulin mass ratioOrdered By: Keven Florentino on 10-28-2022 Albumin/Globulin [Mass ratio] 1.5 {ratio} [facility] Serum or plasma anion gap de terminationOrdered By: Keven Florentino on 10-28-2022 Anion gap [Moles/Vol] 11.2 mmol/L 6.0-15.0 [facility] Sodium [Moles/volume] in Ser um or PlasmaOrdered By: Keven Florentino on 10-28-2022 Sodium [Moles/Vol] 141 mmol/L 136-145 [facility] Specific gravity Auto test s trip (U) [Rel density]Ordered By: Keven Florentino on 10-28-2022 Specific gravity (U) [Rel density] 1.024 1.001-1.030 [facility] Squamous epithelial cells de tection in urine sediment by light microscopyOrdered By: Keven Florentino on 10-28-2022 Epithelial cells.squamous LM Ql (Urine sed) 5-9 [HPF] 0-2 [facility] Urea nitrogen [Mass/volume] in Serum or PlasmaOrdered By: Keven Florentino on 10-28-2022 Urea nitrogen [Mass/Vol] 15 mg/dL 7-25 [facility] Urine bacteria detection by automated methodOrdered By: Keven Florentino on 10-28-2022 Bacteria Auto Ql (U) None seen None Seen [facility] Urine clarity by refractomet ry automatedOrdered By: Keven Florentino on 10-28-2022 Clarity Refractometry automated (U) Clear Clear [facility] Urine culture routineOrdered By: Keven Florentino on 10-28-2022 Bacteria identified Cx Nom (U) 2 Days [facility] Urine glucose measurement by automated test strip (mass/volume)Ordered By: Keven Florentino on 10-28-2022 Glucose Auto test strip (U) [Mass/Vol] Normal mg/dL Normal [facility] Urine hemoglobin detection b y automated test stripOrdered By: Keven Florentino on 10-28-2022 Hemoglobin Auto test strip Ql (U) Negative Negative [facility] Urine leukocyte esterase det ection by automated test stripOrdered By: Keven Florentino on 10-28-2022 Leukocyte esterase Auto test strip Ql (U) 3+ Negative [facility] Urobilinogen Auto test strip (U) [Mass/Vol]Ordered By: Keven Florentino on 10-28-2022 Urobilinogen (U) [Mass/Vol] mg/dL Normal [facility] WBC Auto (Bld) [#/Vol]Ordere d By: Keven Florentino on 10-28-2022 WBC (Bld) [#/Vol] 6.1 10*3/uL 3.8-11.6 [facility] pH Auto test strip (U)Ordere d By: Keven Florentino on 10-28-2022 pH (U) 6.0 [pH] 5.0-9.0 [facility] Alanine aminotransferase [En zymatic activity/volume] in Serum or PlasmaOrdered By: Chelsie Cortez on 10-18-2022 ALT [Catalytic activity/Vol] 20 U/L 7-52 [facility] Albumin [Mass/volume] in Ser um or Plasma by Bromocresol green (BCG) dye binding methoOrdered By: Chelsie Cortez on 10-18-2022 Albumin BCG dye [Mass/Vol] 3.9 g/dL 3.5-5.7 [facility] Alkaline phosphatase [Enzyma tic activity/volume] in Serum or PlasmaOrdered By: Chelsie Cortez on 10-18-2022 ALP [Catalytic activity/Vol] 99 U/L 34-104 [facility] Aspartate aminotransferase [ Enzymatic activity/volume] in Serum or PlasmaOrdered By: Chelsie Cortez on 10-18-2022 AST [Catalytic activity/Vol] 20 U/L 13-39 [facility] Automated erythrocytes count in urine sediment (number/area)Ordered By: Chelsie Cortez on 10-18-2022 RBC Auto (Urine sed) [#/Area] 0-1 [HPF] 0-4 [facility] Automated leukocytes count i n urine sediment (number/area)Ordered By: Chelsie Cortez on 10-18-2022 WBC Auto (Urine sed) [#/Area] 20-49 [HPF] 0-4 [facility] Basophils Auto (Bld) [#/Vol] Ordered By: Chelsie Cortez on 10-18-2022 Basophils (Bld) [#/Vol] 0.0 10*3/uL 0.0-0.2 [facility] Basophils/100 WBC Auto (Bld) Ordered By: Chelsie Cortez on 10-18-2022 Basophils/100 WBC (Bld) 0.8 % . [facility] Bilirubin Test strip Ql (U)O rdered By: Chelsie Cortez on 10-18-2022 Bilirubin Ql (U) Negative Negative [facility] Bilirubin.direct [Mass/volum e] in Serum or PlasmaOrdered By: Chelsie Cortez on 10-18-2022 Bilirubin.direct [Mass/Vol] 0.10 mg/dL 0.03-0.18 [facility] Bilirubin.total [Mass/volume ] in Serum or PlasmaOrdered By: Chelsie Cortez on 10-18-2022 Bilirubin [Mass/Vol] 0.6 mg/dL 0.3-1.0 [facility] Calcium [Mass/volume] in Ser um or PlasmaOrdered By: Chelsie oCrtez on 10-18-2022 Calcium [Mass/Vol] 8.8 mg/dL 8.6-10.3 [facility] Carbon dioxide, total [Moles /volume] in Serum or PlasmaOrdered By: Chelsie Cortez on 10-18-2022 CO2 [Moles/Vol] 26.5 mmol/L 21.0-31.[address] [facility] Chloride [Moles/volume] in S mac or PlasmaOrdered By: Chelsie Cortez on 10-18-2022 Chloride [Moles/Vol] 107 mmol/L 98-107 [facility] Color Auto (U)Ordered By: Jose Cortez on 10-18-2022 Color (U) Yellow Yellow [facility] Creatinine [Mass/volume] in Serum or PlasmaOrdered By: Chelsie Cortez on 10-18-2022 Creatinine [Mass/Vol] 0.83 mg/dL 0.60-1.20 [facility] Eosinophils Auto (Bld) [#/Vo l]Ordered By: Chelsie Cortez on 10-18-2022 Eosinophils (Bld) [#/Vol] 0.1 10*3/uL 0.0-0.45 [facility] Eosinophils/100 WBC Auto (Bl d)Ordered By: Chelsie Cortez on 10-18-2022 Eosinophils/100 WBC (Bld) 1.2 % . [facility] Erythrocyte distribution wid th Auto (RBC) [Ratio]Ordered By: Chelsie Cortez on 10-18-2022 Erythrocyte distribution width (RBC) [Ratio] 13.1 % 11.9-15.3 [facility] Globulin Calc (S) [Mass/Vol] Ordered By: Chelsie Cortez on 10-18-2022 Globulin (S) [Mass/Vol] 2.8 g/dL [facility] Glucose [Mass/volume] in Ser um or PlasmaOrdered By: Chelsie Cortez on 10-18-2022 Glucose [Mass/Vol] 101 mg/dL 70-100 [facility] Comment on above: ADA recommended refe rence rangeRandom Glucose Reference Range is dependent on time and content of last meal. Glucose of more than 200 mg/dL in a nonstressed, ambulatory subject supports the diagnosis of Diabetes Mellitus. HCG ( test) IA.rapi d Ql (U)Ordered By: Chelsie Cortez on 10-18-2022 HCG ( test) Ql (U) Negative [facility] Hematocrit Auto (Bld) [Volum e fraction]Ordered By: Chelsie Cortez on 10-18-2022 Hematocrit (Bld) [Volume fraction] 35.1 % 34.0-46.4 [facility] Hemoglobin [Mass/volume] in BloodOrdered By: Chelsie Cortez 10-18-2022 Hemoglobin (Bld) [Mass/Vol] 12.0 g/dL 11.8-15.4 [facility] Ketones Auto test strip (U) [Mass/Vol]Ordered By: Chelsie Cortez on 10-18-2022 Ketones (U) [Mass/Vol] Negative Negative [facility] - UrinalysisOrder ed By: Chelsie Cortez on 10-18-2022 Hyaline casts LM Ql (Urine sed) 0-8 [LPF] 0-8 [facility] Leukocytes [#/volume] correc nneka for nucleated erythrocytes in Blood by Automated counOrdered By: Chelsie Cortez on 10-18-2022 WBC corrected for nucl RBC Auto (Bld) [#/Vol] 6.3 10*3/uL 3.8-11.6 [facility] Lipase [Enzymatic activity/v olume] in Serum or PlasmaOrdered By: Chelsie Cortez on 10-18-2022 Lipase [Catalytic activity/Vol] 42.0 U/L 11.0-82.0 [facility] Lymphocytes Auto (Bld) [#/Vo l]Ordered By: Chelsie Cortez on 10-18-2022 Lymphocytes (Bld) [#/Vol] 1.4 10*3/uL 1.00-4.8 [facility] Lymphocytes/100 WBC Auto (Bl d)Ordered By: Chelsie Cortez on 10-18-2022 Lymphocytes/100 WBC (Bld) 22.0 % . [facility] MCH Auto (RBC) [Entitic mass ]Ordered By: Chelsie Cortez on 10-18-2022 MCH (RBC) [Entitic mass] 33.0 pg 24.7-34.3 [facility] MCHC Auto (RBC) [Mass/Vol]Or dered By: Chelsie Cortez on 10-18-2022 MCHC (RBC) [Mass/Vol] 34.2 g/dL 32.0-35.0 [facility] MCV Auto (RBC) [Entitic vol] Ordered By: Chelsie Cortez on 10-18-2022 MCV (RBC) [Entitic vol] 96.5 fL 80-100 [facility] Magnesium [Mass/volume] in S mac or PlasmaOrdered By: Chelsie Cortez on 10-18-2022 Magnesium [Mass/Vol] 2.1 mg/dL 1.9-2.7 [facility] Monocytes Auto (Bld) [#/Vol] Ordered By: Chelsie Cortez on 10-18-2022 Monocytes (Bld) [#/Vol] 0.5 10*3/uL 0.0-0.8 [facility] Monocytes/100 WBC Auto (Bld) Ordered By: Chelsie Cortez on 10-18-2022 Monocytes/100 WBC (Bld) 7.2 % . [facility] Neutrophils Auto (Bld) [#/Vo l]Ordered By: Chelsie Cortez on 10-18-2022 Neutrophils (Bld) [#/Vol] 4.3 10*3/uL 1.8-7.7 [facility] Neutrophils/100 WBC Auto (Bl d)Ordered By: Chelsie Cortez on 10-18-2022 Neutrophils/100 WBC (Bld) 68.8 % . [facility] Nitrite Test strip Ql (U)Ord ered By: Chelsie Cortez on 10-18-2022 Nitrite Ql (U) Negative Negative [facility] No Panel InformationOrdered By: Chelsie Cortez on 10-18-2022 Estimated GFR (CKD-EPI) > 60.0 mL/Min [facility] Creatinine Clearance (Chem 115.47 [facility] Nucleated erythrocytes [Pres ence] in Blood by Automated countOrdered By: Chelsie Cortez on 10-18-2022 Nucleated RBC Auto Ql (Bld) 0.1 /100{WBC} 0-0.5 [facility] Platelet mean volume Auto (B ld) [Entitic vol]Ordered By: Chelsie Cortez on 10-18-2022 Platelet mean volume (Bld) [Entitic vol] 7.6 fL 6.3-10.7 [facility] Platelets Auto (Bld) [#/Vol] Ordered By: Chelsie Cortez on 10-18-2022 Platelets (Bld) [#/Vol] 170 10*3/uL 150-450 [facility] Potassium [Moles/volume] in Serum or PlasmaOrdered By: Chelsie Cortez on 10-18-2022 Potassium [Moles/Vol] 4.2 mmol/L 3.5-5.1 [facility] Protein Auto test strip (U) [Mass/Vol]Ordered By: Chelsie Cortez on 10-18-2022 Protein (U) [Mass/Vol] Negative Negative [facility] Protein [Mass/volume] in Ser um or PlasmaOrdered By: Chelsie Cortez on 10-18-2022 Protein [Mass/Vol] 6.7 g/dL 6.4-8.9 [facility] RBC Auto (Bld) [#/Vol]Ordere d By: Chelsie Cortez on 10-18-2022 RBC (Bld) [#/Vol] 3.64 10*6/uL 3.60-5.[address] [facility] Serum or plasma albumin/glob ulin mass ratioOrdered By: Chelsie Cortez on 10-18-2022 Albumin/Globulin [Mass ratio] 1.4 {ratio} [facility] Serum or plasma anion gap de terminationOrdered By: Chelsie Cortez on 10-18-2022 Anion gap [Moles/Vol] 9.7 mmol/L 6.0-15.0 [facility] Serum or plasma non-glucuron idated bilirubin measurement (mass/volume)Ordered By: Chelsie Cortez on 10-18-2022 Bilirubin.indirect [Mass/Vol] 0.5 mg/dL [facility] Sodium [Moles/volume] in Ser um or PlasmaOrdered By: Chelsie Cortez 10-18-2022 Sodium [Moles/Vol] 139 mmol/L 136-145 [facility] Specific gravity Auto test s trip (U) [Rel density]Ordered By: Chelsie Cortez on 10-18-2022 Specific gravity (U) [Rel density] 1.011 1.001-1.030 [facility] Squamous epithelial cells de tection in urine sediment by light microscopyOrdered By: Chelsie Cortez 10-18-2022 Epithelial cells.squamous LM Ql (Urine sed) 3-4 [HPF] 0-2 [facility] Urea nitrogen [Mass/volume] in Serum or PlasmaOrdered By: Chelsie Cortez 10-18-2022 Urea nitrogen [Mass/Vol] 9 mg/dL 7-25 [facility] Urine bacteria detection by automated methodOrdered By: Chelsie Cortez 10-18-2022 Bacteria Auto Ql (U) None seen None Seen [facility] Urine clarity by refractomet ry automatedOrdered By: Chelsie Cortez on 10-18-2022 Clarity Refractometry automated (U) Clear Clear [facility] Urine culture routineOrdered By: Chelsie Cortez 10-18-2022 Bacteria identified Cx Nom (U) 2 Days [facility] Urine glucose measurement by automated test strip (mass/volume)Ordered By: Chelsie Cortez on 10-18-2022 Glucose Auto test strip (U) [Mass/Vol] Normal mg/dL Normal [facility] Urine hemoglobin detection b y automated test stripOrdered By: Chelsie Cortez on 10-18-2022 Hemoglobin Auto test strip Ql (U) Negative Negative [facility] Urine leukocyte esterase det ection by automated test stripOrdered By: Chelsie Cortez on 10-18-2022 Leukocyte esterase Auto test strip Ql (U) 3+ Negative [facility] Urobilinogen Auto test strip (U) [Mass/Vol]Ordered By: Chelsie Cortez on 10-18-2022 Urobilinogen (U) [Mass/Vol] Normal mg/dL Normal [facility] WBC Auto (Bld) [#/Vol]Ordere d By: Chelsie Cortez on 10-18-2022 WBC (Bld) [#/Vol] 6.3 10*3/uL 3.8-11.6 [facility] pH Auto test strip (U)Ordere d By: Chelsie Cortez on 10-18-2022 pH (U) 5.5 [pH] 5.0-9.0 [facility] AMYLASEon 10-16-2022 Amylase [Catalytic activity/Vol] 42 U/L Normal 25-115 [facility] Comment on above: Performed By: #### C MP, LIPA, GRETTA #### [facility] [address] [address] [address] Kinjal Rivers CBC AUTO DIFFon 10-16-2022 BASO # 0.0 103/ul Normal 0.0-0.[address] [facility] Comment on above: Performed By: #### C BC #### [facility] [address] [address] [address] Kinjal Rivers Basophils/100 WBC (Bld) 0.6 % Normal 0.2-2.0 [facility] Comment on above: Performed By: #### C BC #### [facility] [address] [address] [address] Kinjal Rivers EO # 0.1 103/ul Normal 0.0-0.7 [facility] Comment on above: Performed By: #### C BC #### [facility] [address] [place] [address] Dr. Kinjal Rivers Eosinophils/100 WBC (Bld) 2.1 % Normal 0.9-7.0 [facility] Comment on above: Performed By: #### C BC #### [facility] [address] [place] [address] Dr. Kinjal Rivers Erythrocyte distribution width (RBC) [Ratio] 12.4 % Normal 11.0-15.0 [facility] Comment on above: Performed By: #### C BC #### [facility] [address] [place] [address] Dr. Kinjal Rivers Hematocrit (Bld) [Volume fraction] 38.3 % Normal 36.0-48.0 [facility] Comment on above: Performed By: #### C BC #### [facility] [address] [place] [address] Dr. Kinjal Rivers Hemoglobin (Bld) [Mass/Vol] 12.8 g/dL Normal 12.0-16.0 [facility] Comment on above: Performed By: #### C BC #### [facility] [address] [place] [address] Dr. Kinjal Rivers IG # 0.02 10e3/ul Normal 0.00-0.03 [facility] Comment on above: Performed By: #### C BC #### [facility] [address] [place] [address] Dr. Kinjal Rivers IG % 0.3 % Normal 0.0-0.5 [facility] Comment on above: Performed By: #### C BC #### [facility] [address] [place] [address] Dr. Kinjal Rivers LYMPH # 1.5 103/ul Normal 1.2-3.[address] [facility] Comment on above: Performed By: #### C BC #### [facility] [address] [place] [address] Dr. Kinjal Rivers Lymphocytes/100 WBC (Bld) 24.1 % Normal 20.5-60.[address] [facility] Comment on above: Performed By: #### C BC #### [facility] [address] [place] [address] Dr. Kinjal Rivers MANUAL DIFF REQ NO Normal [facility] Comment on above: Performed By: #### C BC #### [facility] [address] [place] [address] Dr. Kinjal Rivers MCH (RBC) [Entitic mass] 32.7 pg Normal 26.7-34.0 [facility] Comment on above: Performed By: #### C BC #### [facility] [address] [place] [address] Dr. Kinjal Rivers MCHC (RBC) [Mass/Vol] 33.4 g/dL Normal 29.9-35.2 [facility] Comment on above: Performed By: #### C BC #### [facility] [address] [place] [address] Dr. Kinjal Rivers MCV (RBC) [Entitic vol] 97.7 fL Normal 81.0-99.0 [facility] Comment on above: Performed By: #### C BC #### [facility] [address] [place] [address] Dr. Kinjal Rivers MONO # 0.3 103/ul Normal 0.3-0.8 [facility] Comment on above: Performed By: #### C BC #### [facility] [address] [place] [address] Dr. Kinjal Rivers Monocytes/100 WBC (Bld) 5.5 % Normal 1.7-12.0 [facility] Comment on above: Performed By: #### C BC #### [facility] [address] [place] [address] Dr. Kinjal Rivers NEUT # 4.2 103/ul Normal 1.4-6.[address] [facility] Comment on above: Performed By: #### C BC #### [facility] [address] [place] [address] Dr. Kinjal Rivers Neutrophils/100 WBC (Bld) 67.4 % Normal 43.0-75.0 [facility] Comment on above: Performed By: #### C BC #### [facility] [address] [address] [address] Kinjal Rivers Platelet mean volume (Bld) [Entitic vol] 9.2 fL Critically low 9.5-13.5 [facility] Comment on above: Performed By: #### C BC #### [facility] [address] [place] [address] Dr. Kinjal Rivers PLT 184 103/ul Normal 150-450 [facility] Comment on above: Performed By: #### C BC #### [facility] [address] [address] [address] Kinjal Rivers RBC 3.92 106/ul Critically low 4.20-5.40 [facility] Comment on above: Performed By: #### C BC #### [facility] [address] [place] [address] Dr. Kinjal Rivers WBC 6.2 103/ul Normal 4.0-11.0 [facility] Comment on above: Performed By: #### C BC #### [facility] [address] [place] [address] Dr. Kinjal Rivers CULTURE URINEon 10-16-2022 CULTURE URINE Culture Observations : LIGHT GROWTH OF MIXED GENITAL YOGESH. NO POTENTIAL PATHOGENS SEEN. Normal [facility] Comment on above: Performed By: #### U RCX #### [facility] [address] [place] [address] Dr. Kinjal Rivers ER URINE PROFILEon 3 Bilirubin Ql (U) Negative Normal NEGATIVE [facility] Comment on above: Performed By: #### U MICRO, ERUR #### [facility] [address] [place] [address] Dr. Kinjal Rivers Clarity (U) SL CLOUDY Abnormal CLEAR [facility] Comment on above: Performed By: #### U MICRO, ERUR #### [facility] [address] [place] [address] Dr. Kinjal Rivers Color (U) LT. YELLOW Normal YELLOW [facility] Comment on above: Performed By: #### U MICRO, ERUR #### [facility] [address] [address] [address] Kinjal SLAUGHTER A micrscopic examina tion will be performed if indicated. Normal [facility] Comment on above: Performed By: #### U MICRO, ERUR #### [facility] [address] [address] [address] Kinjal Rivers Glucose Ql (U) Negative Normal NEGATIVE [facility] Comment on above: Performed By: #### U MICRO, ERUR #### [facility] [address] [address] [address] Kinjal Rivers Hemoglobin Ql (U) Negative Normal NEGATIVE [facility] Comment on above: Performed By: #### U MICRO, ERUR #### [facility] [address] [place] [address] Dr. Kinjal Rivers Ketones Ql (U) Negative Normal NEGATIVE [facility] Comment on above: Performed By: #### U MICRO, ERUR #### [facility] [address] [place] [address] Dr. Kinjal Rivers LEUKOCYTES TRACE Abnormal NEGATIVE [facility] Comment on above: Performed By: #### U MICRO, ERUR #### [facility] [address] [address] [address] Kinjal Rivers Nitrite Ql (U) Negative Normal NEGATIVE [facility] Comment on above: Performed By: #### U MICRO, ERUR #### [facility] [address] [place] [address] Dr. Kinjal Rivers pH (U) 5.0 [pH] Normal 5-[address] [facility] Comment on above: Performed By: #### U MICRO, ERUR #### [facility] [address] [place] [address] Dr. Kinjal Rivers SPEC GRAVITY 1.030 Abnormal 1.005-<=1.0 [address] [facility] Comment on above: Performed By: #### U MICRO, ERUR #### [facility] [address] [place] [address] Dr. Kinjal Rivers UA PROTEIN Negative Normal NEGATIVE/ TRACE [facility] Comment on above: Performed By: #### U MICRO, ERUR #### [facility] [address] [place] [address] Dr. Kinjal Rivers UR MICRO IND INDICATED Normal [facility] Comment on above: Performed By: #### U MICRO, ERUR #### [facility] [address] [place] [address] Dr. Kinjal Rivers Urobilinogen Qn (U) 1.0 {José'U}/dL Normal 0.2 - 1. 0 [facility] Comment on above: Performed By: #### U MICRO, ERUR #### [facility] [address] [place] [address] Dr. Kinjal Rivers LIPASEon 10-16-2022 Lipase [Catalytic activity/Vol] 133.0 U/L Normal 73.0-393.0 [facility] Comment on above: Performed By: #### C MP, LIPA, GRETTA #### [facility] [address] [place] [address] Dr. Kinjal Rivers PROF 14(COMP METB)on 023 Albumin [Mass/Vol] 3.7 g/dL Normal 3.4-5.0 [facility] Comment on above: Performed By: #### C MP, LIPA, GRETTA #### [facility] [address] [place] [address] Dr. Kinjal Rivers Albumin/Globulin [Mass ratio] 1.0 {ratio} Normal [facility] Comment on above: Performed By: #### C MP, LIPA, GRETTA #### [facility] [address] [place] [address] Dr. Kinjal Rivers ALP [Catalytic activity/Vol] 101 U/L Normal 46-[address] [facility] Comment on above: Performed By: #### C MP, LIPA, GRETTA #### [facility] [address] [place] [address] Dr. Kinjal Rivers ALT [Catalytic activity/Vol] 27 U/L Normal 14-59 [facility] Comment on above: Performed By: #### C MP, LIPA, GRETTA #### [facility] [address] [place] [address] Dr. Kinjal Rivers Anion gap [Moles/Vol] 13.4 mmol/L Normal Th e [facility] Comment on above: Performed By: #### C YOVANI SCHUMACHER, GRETTA #### [facility] [address] [place] [address] Dr. Kinjal Rivers AST [Catalytic activity/Vol] 23 U/L Normal 15-37 [facility] Comment on above: Performed By: #### C YOVANI SCHUMACHER, GRETTA #### [facility] [address] [place] [address] Dr. Kinjal Rivers Bilirubin [Mass/Vol] 0.6 mg/dL Normal 0.2-1.0 [facility] Comment on above: Performed By: #### C YOVANI SCHUMACHER, GRETTA #### [facility] [address] [place] [address] Dr. Kinjal Rivers Calcium [Mass/Vol] 9.1 mg/dL Normal 8.5-10.1 [facility] Comment on above: Performed By: #### C YOVANI SCHUMACHER, GRETTA #### [facility] [address] [place] [address] Dr. Kinjal Rivers Chloride [Moles/Vol] 105 mmol/L Normal 98-[address] [facility] Comment on above: Performed By: #### C YOVANI SCHUMACHER, GRETTA #### [facility] [address] [place] [address] Dr. Kinjal Rivers CO2 [Moles/Vol] 25.3 mmol/L Normal 21.0-32.0 [facility] Comment on above: Performed By: #### C LANDON SCHUMACHERA, GRETTA #### [facility] [address] [place] [address] Dr. Kinjal Rivers Creatinine [Mass/Vol] 0.96 mg/dL Normal 0.55-1.[address] [facility] Comment on above: Performed By: #### C YOVANI SCHUMACHER, GRETTA #### [facility] [address] [place] [address] Dr. Kinjal Rivers EGFR-AF AUSTRIAN >60 Normal >=60 [facility] Comment on above: Performed By: #### C LANDON SCHUMACHERA, GRETTA #### [facility] [address] [address] [address] Kinjal Rivers EGFR-NON AF AUSTRIAN >60 Normal >=[address] [facility] Comment on above: Performed By: #### C YOVANI SCHUMACHER AMY #### [facility] [address] [place] [address] Dr. Kinjal Rivers Globulin (S) [Mass/Vol] 3.6 g/dL Normal [facility] Comment on above: Performed By: #### C YOVANI SCHUMACHER, GRETTA #### [facility] [address] [place] [address] Dr. Kinjal Rivers Glucose [Mass/Vol] 93 mg/dL Normal 74-106 [facility] Comment on above: Performed By: #### C YOVANI SCHUMACHER, GRETTA #### [facility] [address] [place] [address] Dr. Kinjal Rivers Potassium [Moles/Vol] 3.7 mmol/L Normal 3.5-5.[address] [facility] Comment on above: Performed By: #### C YOVANI SCHUMACHER, GRETTA #### [facility] [address] [place] [address] Dr. Kinjal Rivers Protein [Mass/Vol] 7.3 g/dL Normal 6.4-8.2 [facility] Comment on above: Performed By: #### C YOVANI SCHUMACHER, GRETTA #### [facility] [address] [place] [address] Dr. Kinjal Rivers Sodium [Moles/Vol] 140 mmol/L Normal 136-145 [facility] Comment on above: Performed By: #### C YOVANI SCHUMACHER, GRETTA #### [facility] [address] [place] [address] Dr. Kinjal Rivers Urea nitrogen [Mass/Vol] 9.0 mg/dL Normal 7.0-18.0 [facility] Comment on above: Performed By: #### C YOVANI SCHUMACHER, GRETTA #### [facility] [address] [place] [address] Dr. Kinjal Rivers Urea nitrogen/Creatinine [Mass ratio] 9.4 mg/mg Normal [facility] Comment on above: Performed By: #### C MP, LIPA, GRETTA #### [facility] [address] [address] [address] Kinjal Rivers URINE MICROSCOPIC ONLYon BACTERIA TRACE Abnormal NONE SEEN [facility] Comment on above: Performed By: #### U MICRO, ERUR #### [facility] [address] [place] [address] Dr. Kinjal Rivers Bacteria identified Cx Nom (U) INDICATED Normal [facility] Comment on above: Performed By: #### U MICRO, ERUR #### [facility] [address] [place] [address] Dr. Kinjal Rivers CAST NONE SEEN Normal NONE SEEN [facility] Comment on above: Performed By: #### U MICRO, ERUR #### [facility] [address] [place] [address] Dr. Kinjal Rivers Crystals LM Nom (Urine sed) NONE SEEN Normal NONE SEEN The [facility] Comment on above: Performed By: #### U MICRO, ERUR #### [facility] [address] [place] [address] Dr. Kinjal Rivers Epithelial cells LM Ql (Urine sed) FEW Abnormal NONE SEEN /RARE [facility] Comment on above: Performed By: #### U MICRO, ERUR #### [facility] [address] [place] [address] Dr. Kinjal Rivers MUCOUS NONE SEEN Normal NONE SEEN The [facility] Comment on above: Performed By: #### U MICRO, ERUR #### [facility] [address] [place] [address] Dr. Kinjal Rivers RBC NONE SEEN Abnormal 0-[address] [facility] Comment on above: Performed By: #### U MICRO, ERUR #### [facility] [address] [place] [address] Dr. Kinjal Rivers WBC 2-5 Abnormal NONE SEEN The [facility] Comment on above: Performed By: #### U MICRO, ERUR #### [facility] [address] [place] [address] Dr. Kinjal Rivers Activated partial thrombopla stin time (aPTT) in platelet poor plasma by coagulation aOrdered By: Michael Cerda on 09-28-2022 aPTT Coag (PPP) [Time] 24.9 s 25.1-36.5 [facility] Automated erythrocytes count in urine sediment (number/area)Ordered By: Michael Cerda on 09-28-2022 RBC Auto (Urine sed) [#/Area] 0-1 [HPF] 0-4 [facility] Automated leukocytes count i n urine sediment (number/area)Ordered By: Michael Cerda on 09-28-2022 WBC Auto (Urine sed) [#/Area] 10-19 [HPF] 0-4 [facility] Basophils Auto (Bld) [#/Vol] Ordered By: Michael Cerda on 09-28-2022 Basophils (Bld) [#/Vol] 0.0 10*3/uL 0.0-0.2 [facility] Basophils/100 WBC Auto (Bld) Ordered By: Michael Cerda on 09-28-2022 Basophils/100 WBC (Bld) 0.5 % . [facility] Bilirubin Test strip Ql (U)O rdered By: Michael Cerda on 09-28-2022 Bilirubin Ql (U) Negative Negative [facility] COVID CepheidOrdered By: Janee Cerda on 09-28-2022 SARS-CoV-2 (COVID-19) Ab IA Ql Negative Negative [facility] Comment on above: This is a duplicate [employer] Xpert Xpress CoV-2/Flu/RSV Plus RNA by RT-PCR result to be used for statistical tracking purpose only. SARS-CoV-2 (COVID-19) RNA CRISTINA+probe Ql (Unsp spec) [facility] Calcium [Mass/volume] in Ser um or PlasmaOrdered By: Michael Cerda on 09-28-2022 Calcium [Mass/Vol] 9.3 mg/dL 8.6-10.3 [facility] Carbon dioxide, total [Moles /volume] in Serum or PlasmaOrdered By: Michael Cerda on 09-28-2022 CO2 [Moles/Vol] 23.7 mmol/L 21.0-31.[address] [facility] Chloride [Moles/volume] in S mac or PlasmaOrdered By: Michael Cerda on 09-28-2022 Chloride [Moles/Vol] 105 mmol/L 98-107 [facility] Color Auto (U)Ordered By: Lorene Cerda on 09-28-2022 Color (U) Yellow Yellow [facility] Creatine kinase [Enzymatic a ctivity/volume] in Serum or PlasmaOrdered By: Michael Cerda on 09-28-2022 CK [Catalytic activity/Vol] 60 U/L 30-223 [facility] Creatinine [Mass/volume] in Serum or PlasmaOrdered By: Michael Cerda on 09-28-2022 Creatinine [Mass/Vol] 0.81 mg/dL 0.60-1.20 [facility] Eosinophils Auto (Bld) [#/Vo l]Ordered By: Michael Cerda on 09-28-2022 Eosinophils (Bld) [#/Vol] 0.0 10*3/uL 0.0-0.45 [facility] Eosinophils/100 WBC Auto (Bl d)Ordered By: Michael Cerda on 09-28-2022 Eosinophils/100 WBC (Bld) 0.2 % . [facility] Erythrocyte distribution wid th Auto (RBC) [Ratio]Ordered By: Michael Cerda on 09-28-2022 Erythrocyte distribution width (RBC) [Ratio] 13.5 % 11.9-15.3 [facility] Glucose [Mass/volume] in Ser um or PlasmaOrdered By: Michael Cerda on 09-28-2022 Glucose [Mass/Vol] 103 mg/dL 70-100 [facility] Comment on above: ADA recommended refe rence rangeRandom Glucose Reference Range is dependent on time and content of last meal. Glucose of more than 200 mg/dL in a nonstressed, ambulatory subject supports the diagnosis of Diabetes Mellitus. Hematocrit Auto (Bld) [Volum e fraction]Ordered By: Michael Cerda on 09-28-2022 Hematocrit (Bld) [Volume fraction] 38.9 % 34.0-46.4 [facility] Hemoglobin [Mass/volume] in BloodOrdered By: Michael Cerda on 09-28-2022 Hemoglobin (Bld) [Mass/Vol] 13.2 g/dL 11.8-15.4 [facility] Ketones Auto test strip (U) [Mass/Vol]Ordered By: Michael Cerda on 09-28-2022 Ketones (U) [Mass/Vol] Negative Negative [facility] - CoagulationOrde red By: Michael Cerda on 09-28-2022 PT Coag (PPP) [Time] 12.0 s 9.0-12.9 [facility] - UrinalysisOrder ed By: Michael Cerda on 09-28-2022 Hyaline casts LM Ql (Urine sed) 0-8 [LPF] 0-8 [facility] Leukocytes [#/volume] correc nneka for nucleated erythrocytes in Blood by Automated counOrdered By: Michael Cerda on 09-28-2022 WBC corrected for nucl RBC Auto (Bld) [#/Vol] 5.1 10*3/uL 3.8-11.6 [facility] Lymphocytes Auto (Bld) [#/Vo l]Ordered By: Michael Cerda on 09-28-2022 Lymphocytes (Bld) [#/Vol] 0.6 10*3/uL 1.00-4.8 [facility] Lymphocytes/100 WBC Auto (Bl d)Ordered By: Michael Cerda on 09-28-2022 Lymphocytes/100 WBC (Bld) 11.0 % . [facility] MCH Auto (RBC) [Entitic mass ]Ordered By: Michael Cerda on 09-28-2022 MCH (RBC) [Entitic mass] 33.0 pg 24.7-34.3 [facility] MCHC Auto (RBC) [Mass/Vol]Or dered By: Michael Cerda on 09-28-2022 MCHC (RBC) [Mass/Vol] 34.0 g/dL 32.0-35.0 [facility] MCV Auto (RBC) [Entitic vol] Ordered By: Michael Cerda on 09-28-2022 MCV (RBC) [Entitic vol] 97.0 fL 80-100 [facility] Monocyte distribution width [Entitic volume] in Blood by AutomatedOrdered By: Michael Cerda on 09-28-2022 Monocyte distribution width Auto (Bld) [Entitic vol] 24.75 % 0.00-20.00 [facility] Comment on above: For adults in ED, MD W > 20.0 may be associated with a higher risk of sepsis during the first 12 hrs of hospital admission Monocytes Auto (Bld) [#/Vol] Ordered By: Michael Cerda on 09-28-2022 Monocytes (Bld) [#/Vol] 0.3 10*3/uL 0.0-0.8 [facility] Monocytes/100 WBC Auto (Bld) Ordered By: Michael Cerda on 09-28-2022 Monocytes/100 WBC (Bld) 5.8 % . [facility] Natriuretic peptide B [Mass/ Vol]Ordered By: Michael Cerda on 09-28-2022 Natriuretic peptide B (Bld) [Mass/Vol] 27.0 pg/mL 5-100 [facility] Neutrophils Auto (Bld) [#/Vo l]Ordered By: Michael Cerda on 09-28-2022 Neutrophils (Bld) [#/Vol] 4.2 10*3/uL 1.8-7.7 [facility] Neutrophils/100 WBC Auto (Bl d)Ordered By: Michael Cerda on 09-28-2022 Neutrophils/100 WBC (Bld) 82.5 % . [facility] Nitrite Test strip Ql (U)Ord ered By: Michael Cerda on 09-28-2022 Nitrite Ql (U) Negative Negative [facility] No Panel InformationOrdered By: Michael Cerda on 09-28-2022 D-Dimer Quantitative (PE/DVT) 560 ng/mL 0-243 [facility] Comment on above: The reference range [...] conditions. Estimated GFR (CKD-EPI) > 60.0 mL/Min [facility] Creatinine Clearance (Chem 119.50 [facility] Nucleated erythrocytes [Pres ence] in Blood by Automated countOrdered By: Michael Cerda on 09-28-2022 Nucleated RBC Auto Ql (Bld) 0.1 /100{WBC} 0-0.5 [facility] Platelet mean volume Auto (B ld) [Entitic vol]Ordered By: Michael Cerda on 09-28-2022 Platelet mean volume (Bld) [Entitic vol] 7.4 fL 6.3-10.7 [facility] Platelet poor plasma interna tional normalized ratio (INR) by coagulation assay (relatOrdered By: Michael Cerda on 09-28-2022 INR Coag (PPP) [Relative time] 1.0 {INR} [facility] Comment on above: INR Therapeutic Rang [...] 09-28-2022 Platelets (Bld) [#/Vol] 197 10*3/uL 150-450 [facility] Potassium [Moles/volume] in Serum or PlasmaOrdered By: Michael Cerda on 09-28-2022 Potassium [Moles/Vol] 3.7 mmol/L 3.5-5.1 [facility] Protein Auto test strip (U) [Mass/Vol]Ordered By: Michael Cerda on 09-28-2022 Protein (U) [Mass/Vol] Negative Negative [facility] RBC Auto (Bld) [#/Vol]Ordere d By: Michael Cerda on 09-28-2022 RBC (Bld) [#/Vol] 4.01 10*6/uL 3.60-5.[address] [facility] Serum or plasma anion gap de terminationOrdered By: Michael Cerda on 09-28-2022 Anion gap [Moles/Vol] 13.0 mmol/L 6.0-15.0 [facility] Sodium [Moles/volume] in Ser um or PlasmaOrdered By: Michael Cerda on 09-28-2022 Sodium [Moles/Vol] 138 mmol/L 136-145 [facility] Specific gravity Auto test s trip (U) [Rel density]Ordered By: Michael Cerda on 09-28-2022 Specific gravity (U) [Rel density] 1.015 1.001-1.030 [facility] Squamous epithelial cells de tection in urine sediment by light microscopyOrdered By: Michael Cerda on 09-28-2022 Epithelial cells.squamous LM Ql (Urine sed) 3-4 [HPF] 0-2 [facility] Troponin I.cardiac [Mass/vol ume] in Serum or Plasma by Detection limit <= 0.01 ng/Ordered By: Michael Cerda on 09-28-2022 Troponin I.cardiac DL <= 0.01 ng/mL [Mass/Vol] 5.1 pg/mL 0.0-15.0 [facility] Urea nitrogen [Mass/volume] in Serum or PlasmaOrdered By: Michael Cerda on 09-28-2022 Urea nitrogen [Mass/Vol] 11 mg/dL 7-25 [facility] Urine bacteria detection by automated methodOrdered By: Michael Cerda on 09-28-2022 Bacteria Auto Ql (U) None seen None Seen [facility] Urine clarity by refractomet ry automatedOrdered By: Michael Cerda on 09-28-2022 Clarity Refractometry automated (U) Clear Clear [facility] Urine culture routineOrdered By: Michael Cerda on 09-28-2022 Bacteria identified Cx Nom (U) 2 Days [facility] Urine glucose measurement by automated test strip (mass/volume)Ordered By: Michael Cerda on 09-28-2022 Glucose Auto test strip (U) [Mass/Vol] Normal mg/dL Normal [facility] Urine hemoglobin detection b y automated test stripOrdered By: Michael Cerda on 09-28-2022 Hemoglobin Auto test strip Ql (U) Negative Negative [facility] Urine leukocyte esterase det ection by automated test stripOrdered By: Michael Cerda on 09-28-2022 Leukocyte esterase Auto test strip Ql (U) 3+ Negative [facility] Urobilinogen Auto test strip (U) [Mass/Vol]Ordered By: Michael Cerda on 09-28-2022 Urobilinogen (U) [Mass/Vol] Normal mg/dL Normal [facility] WBC Auto (Bld) [#/Vol]Ordere d By: Michael Cerda on 09-28-2022 WBC (Bld) [#/Vol] 5.1 10*3/uL 3.8-11.6 [facility] pH Auto test strip (U)Ordere d By: Michael Cerda on 09-28-2022 pH (U) 6.5 [pH] 5.0-9.0 [facility] Cholesterol [Mass/volume] in Serum or PlasmaOrdered By: Nimesh Cerda on 09-04-2022 Cholesterol [Mass/Vol] 213 mg/dL 140-200 [facility] Comment on above: Chol less than 200 m g/dl low riskChol 201-239 mg/dl borderline riskChol 240 mg/dl and greater high risk Cholesterol in LDL Calc [Mas s/Vol]Ordered By: Nimesh Cerda on 09-04-2022 Cholesterol in LDL [Mass/Vol] 126 mg/dL 0-100 [facility] Comment on above: LDL ATP III CLASSIFI CATIONLDL less than 100 mg/dL OptimalLDL 100-129 mg/dL Near or above optimalLDL 130-159 mg/dL Borderline highLDL 160-189 mg/dL HighLDL greater than 189 mg/dL Very high Cholesterol in VLDL Calc [Ma ss/Vol]Ordered By: Nimesh Cerda on 09-04-2022 Cholesterol in VLDL [Mass/Vol] 19 mg/dL [facility] Serum or plasma high density lipoprotein (HDL) cholesterol measurementOrdered By: Nimesh Cerda on 09-04-2022 Cholesterol in HDL [Mass/Vol] 67 mg/dL 35-85 [facility] Comment on above: HDL CHOL ATP-III CLA SSIFICATION Cardiovascular RiskHDL > or equal to 60 mg/dL LOWHDL < 40 mg/dL HIGH Serum or plasma total choles terol/high density lipoprotein (HDL) cholesterol mass ratOrdered By: Nimesh Cerda on 09-04-2022 Cholesterol.total/Chol esterol in HDL [Mass ratio] 3.2 {ratio} <5.0 [facility] Thyrotropin [Units/volume] i n Serum or PlasmaOrdered By: Nimesh Cerda on 09-04-2022 TSH Qn 1.74 m[IU]/L 0.45-5.33 [facility] Triglyceride [Mass/volume] i n Serum or PlasmaOrdered By: Nimesh Cerda on 09-04-2022 Triglyceride [Mass/Vol] 98 mg/dL 0-149 [facility] Comment on above: TRIG ATP III CLASSIF ICATIONTRIG less than 150 mg/dL NormalTRIG 150-199 mg/dL Borderline highTRIG 200-500 mg/dL High TRIG greater than 500 mg/dL Very highStandard traceable to the Center for Disease Conrtrol and Prevention (CDC) test method. Vitamin D+Metabolites [Mass/ volume] in Serum or PlasmaOrdered By: Nimesh Cerda on 09-04-2022 Vitamin D+Metabolites [Mass/Vol] 31.0 ng/mL 30-100 [facility] Comment on above: VITAMIN D STATUS [...] 09-03-2022 ALT [Catalytic activity/Vol] 26 U/L 7-52 [facility] Albumin [Mass/volume] in Ser um or Plasma by Bromocresol green (BCG) dye binding methoOrdered By: Raffaele Ellsworth on 09-03-2022 Albumin BCG dye [Mass/Vol] 4.1 g/dL 3.5-5.7 [facility] Alkaline phosphatase [Enzyma tic activity/volume] in Serum or PlasmaOrdered By: Raffaele Ellsworth on 09-03-2022 ALP [Catalytic activity/Vol] 77 U/L 34-104 [facility] Amphetamine Screen Ql (U)Ord ered By: Raffaele Ellsworth on 09-03-2022 Amphetamines Ql (U) Negative Negative [facility] Aspartate aminotransferase [ Enzymatic activity/volume] in Serum or PlasmaOrdered By: Raffaele Ellsworth on 09-03-2022 AST [Catalytic activity/Vol] 29 U/L 13-39 [facility] Automated erythrocytes count in urine sediment (number/area)Ordered By: Raffaele Ellsworth on 09-03-2022 RBC Auto (Urine sed) [#/Area] 5-9 [HPF] 0-4 [facility] Automated leukocytes count i n urine sediment (number/area)Ordered By: Raffaele Ellsworth on 09-03-2022 WBC Auto (Urine sed) [#/Area] 10-19 [HPF] 0-4 [facility] Barbiturates [Presence] in U rine by Screen methodOrdered By: Raffaele Ellsworth on 09-03-2022 Barbiturates Screen Ql (U) Negative Negative [facility] Basophils Auto (Bld) [#/Vol] Ordered By: Raffaele Ellsworth on 09-03-2022 Basophils (Bld) [#/Vol] 0.0 10*3/uL 0.0-0.2 [facility] Basophils/100 WBC Auto (Bld) Ordered By: Raffaele Ellsworth on 09-03-2022 Basophils/100 WBC (Bld) 0.6 % . [facility] Benzodiazepines Screen Ql (U )Ordered By: Raffaele Ellsworth on 09-03-2022 Benzodiazepines Ql (U) Negative Negative [facility] Benzoylecgonine [Presence] i n Urine by Screen methodOrdered By: Raffaele Ellsworth on 09-03-2022 Benzoylecgonine Screen Ql (U) Negative Negative [facility] Bilirubin Test strip Ql (U)O rdered By: Raffaele Ellsworth on 09-03-2022 Bilirubin Ql (U) Negative Negative [facility] Bilirubin.total [Mass/volume ] in Serum or PlasmaOrdered By: Raffaele Ellsworth on 09-03-2022 Bilirubin [Mass/Vol] 0.4 mg/dL 0.3-1.0 [facility] Calcium [Mass/volume] in Ser um or PlasmaOrdered By: Raffaele Ellsworth on 09-03-2022 Calcium [Mass/Vol] 9.6 mg/dL 8.6-10.3 [facility] Cannabinoids [Presence] in U rine by Screen methodOrdered By: Raffaele Ellsworth on 09-03-2022 Cannabinoids Screen Ql (U) Negative Negative [facility] Comment on above: These are unconfirme d results and should not be used for legal purposes. Drug Cut-Off Concentration: AMPH 1000 ng/mL BOO 200 ng/mL HELGA 200 ng/mL COCM 300 ng/mL OP 300 ng/mL PCP 25 ng/mL THC 20 ng/mL Carbon dioxide, total [Moles /volume] in Serum or PlasmaOrdered By: Raffaele Ellsworth on 09-03-2022 CO2 [Moles/Vol] 23.8 mmol/L 21.0-31.[address] [facility] Chloride [Moles/volume] in S mac or PlasmaOrdered By: Raffaele Ellsworth on 09-03-2022 Chloride [Moles/Vol] 107 mmol/L 98-107 [facility] Color Auto (U)Ordered By: Kapil Ellsworth on 09-03-2022 Color (U) Yellow Yellow [facility] Creatinine [Mass/volume] in Serum or PlasmaOrdered By: Raffaele Ellsworth on 09-03-2022 Creatinine [Mass/Vol] 0.76 mg/dL 0.60-1.20 [facility] Eosinophils Auto (Bld) [#/Vo l]Ordered By: Raffaele Ellsworth on 09-03-2022 Eosinophils (Bld) [#/Vol] 0.1 10*3/uL 0.0-0.45 [facility] Eosinophils/100 WBC Auto (Bl d)Ordered By: Raffaele Ellsworth on 09-03-2022 Eosinophils/100 WBC (Bld) 2.0 % . [facility] Erythrocyte distribution wid th Auto (RBC) [Ratio]Ordered By: Raffaele Ellsworth on 09-03-2022 Erythrocyte distribution width (RBC) [Ratio] 14.8 % 11.9-15.3 [facility] Ethanol [Mass/volume] in Ser um or PlasmaOrdered By: Raffaele Ellsworth on 09-03-2022 Ethanol [Mass/Vol] mg/dL [facility] Ethanol [Mass/Vol] TNP [facility] Comment on above: Test not performed Globulin Calc (S) [Mass/Vol] Ordered By: Raffaele Ellsworth on 09-03-2022 Globulin (S) [Mass/Vol] 2.9 g/dL [facility] Glucose [Mass/volume] in Ser um or PlasmaOrdered By: Raffaele Ellsworth on 09-03-2022 Glucose [Mass/Vol] 79 mg/dL 74-109 [facility] Comment on above: ADA recommended refe rence rangeRandom Glucose Reference Range is dependent on time and content of last meal. Glucose of more than 200 mg/dL in a nonstressed, ambulatory subject supports the diagnosis of Diabetes Mellitus. Hematocrit Auto (Bld) [Volum e fraction]Ordered By: Raffaele Ellsworth on 09-03-2022 Hematocrit (Bld) [Volume fraction] 38.3 % 34.0-46.4 [facility] Hemoglobin [Mass/volume] in BloodOrdered By: Raffaele Ellsworth on 09-03-2022 Hemoglobin (Bld) [Mass/Vol] 12.8 g/dL 11.8-15.4 [facility] Ketones Auto test strip (U) [Mass/Vol]Ordered By: Raffaele Ellsworth on 09-03-2022 Ketones (U) [Mass/Vol] Trace Negative [facility] - Chemistry and C hemistry - challengeOrdered By: Raffaele Ellsworth on 09-03-2022 GFR/1.73 sq M.predicted MDRD (S/P/Bld) [Vol rate/Area] mL/min/{1.73_m2} [facility] - UrinalysisOrder ed By: Raffaele Ellsworth on 09-03-2022 Hyaline casts LM Ql (Urine sed) 0-8 [LPF] 0-8 [facility] Leukocytes [#/volume] correc nneka for nucleated erythrocytes in Blood by Automated counOrdered By: Raffaele Ellsworth on 09-03-2022 WBC corrected for nucl RBC Auto (Bld) [#/Vol] 6.5 10*3/uL 3.8-11.6 [facility] Lymphocytes Auto (Bld) [#/Vo l]Ordered By: Raffaele Ellsworth on 09-03-2022 Lymphocytes (Bld) [#/Vol] 1.8 10*3/uL 1.00-4.8 [facility] Lymphocytes/100 WBC Auto (Bl d)Ordered By: Raffaele Ellsworth on 09-03-2022 Lymphocytes/100 WBC (Bld) 28.2 % . [facility] MCH Auto (RBC) [Entitic mass ]Ordered By: Raffaele Ellsworth on 09-03-2022 MCH (RBC) [Entitic mass] 32.7 pg 24.7-34.3 [facility] MCHC Auto (RBC) [Mass/Vol]Or dered By: Raffaele Ellsworth on 09-03-2022 MCHC (RBC) [Mass/Vol] 33.4 g/dL 32.0-35.0 [facility] MCV Auto (RBC) [Entitic vol] Ordered By: Raffaele Ellsworth on 09-03-2022 MCV (RBC) [Entitic vol] 97.9 fL 80-100 [facility] Monocyte distribution width [Entitic volume] in Blood by AutomatedOrdered By: Raffaele Ellsworth on 09-03-2022 Monocyte distribution width Auto (Bld) [Entitic vol] 18.00 % 0.00-20.00 [facility] Monocytes Auto (Bld) [#/Vol] Ordered By: Raffaele Ellsworth on 09-03-2022 Monocytes (Bld) [#/Vol] 0.5 10*3/uL 0.0-0.8 [facility] Monocytes/100 WBC Auto (Bld) Ordered By: Raffaele Ellsworth on 09-03-2022 Monocytes/100 WBC (Bld) 7.1 % . [facility] Neutrophils Auto (Bld) [#/Vo l]Ordered By: Raffaele Ellsworth on 09-03-2022 Neutrophils (Bld) [#/Vol] 4.0 10*3/uL 1.8-7.7 [facility] Neutrophils/100 WBC Auto (Bl d)Ordered By: Raffaele Ellsworth on 09-03-2022 Neutrophils/100 WBC (Bld) 62.1 % . [facility] Nitrite Test strip Ql (U)Ord ered By: Raffaele Ellsworth on 09-03-2022 Nitrite Ql (U) Negative Negative [facility] No Panel InformationOrdered By: Raffaele Ellsworth on 09-03-2022 Pharmacy Creatinine Clearance (Chem 126.74 [facility] Nucleated erythrocytes [Pres ence] in Blood by Automated countOrdered By: Raffaele Ellsworth on 09-03-2022 Nucleated RBC Auto Ql (Bld) 0.0 /100{WBC} 0-0.5 [facility] Opiates [Presence] in Urine by Screen methodOrdered By: Raffaele Ellsworth on 09-03-2022 Opiates Screen Ql (U) Negative Negative [facility] Phencyclidine Screen Ql (U)O rdered By: Raffaele Ellsworth on 09-03-2022 Phencyclidine Ql (U) Negative Negative [facility] Platelet mean volume Auto (B ld) [Entitic vol]Ordered By: Raffaele Ellsworth on 09-03-2022 Platelet mean volume (Bld) [Entitic vol] 7.2 fL 6.3-10.7 [facility] Platelets Auto (Bld) [#/Vol] Ordered By: Raffaele Ellsworth on 09-03-2022 Platelets (Bld) [#/Vol] 241 10*3/uL 150-450 [facility] Potassium [Moles/volume] in Serum or PlasmaOrdered By: Raffaele Ellsworth on 09-03-2022 Potassium [Moles/Vol] 4.0 mmol/L 3.5-5.1 [facility] Protein Auto test strip (U) [Mass/Vol]Ordered By: Raffaele Ellsworth on 09-03-2022 Protein (U) [Mass/Vol] Negative Negative [facility] Protein [Mass/volume] in Ser um or PlasmaOrdered By: Raffaele Ellsworth on 09-03-2022 Protein [Mass/Vol] 7.0 g/dL 6.4-8.9 [facility] RBC Auto (Bld) [#/Vol]Ordere d By: Raffaele Ellsworth on 09-03-2022 RBC (Bld) [#/Vol] 3.91 10*6/uL 3.60-5.[address] [facility] Serum or plasma albumin/glob ulin mass ratioOrdered By: Raffaele Ellsworth on 09-03-2022 Albumin/Globulin [Mass ratio] 1.4 {ratio} [facility] Serum or plasma anion gap de terminationOrdered By: Raffaele Ellsworth on 09-03-2022 Anion gap [Moles/Vol] 12.2 mmol/L 6.0-15.0 [facility] Sodium [Moles/volume] in Ser um or PlasmaOrdered By: Raffaele Ellsworth on 09-03-2022 Sodium [Moles/Vol] 139 mmol/L 136-145 [facility] Specific gravity Auto test s trip (U) [Rel density]Ordered By: Raffaele Ellsworth on 09-03-2022 Specific gravity (U) [Rel density] 1.020 1.001-1.030 [facility] Squamous epithelial cells de tection in urine sediment by light microscopyOrdered By: Raffaele Ellsworth on 09-03-2022 Epithelial cells.squamous LM Ql (Urine sed) 5-9 [HPF] 0-2 [facility] Urea nitrogen [Mass/volume] in Serum or PlasmaOrdered By: Raffaele Ellsworth on 09-03-2022 Urea nitrogen [Mass/Vol] 9 mg/dL 7-25 [facility] Urine bacteria detection by automated methodOrdered By: Raffaele Ellsworth on 09-03-2022 Bacteria Auto Ql (U) None seen None Seen [facility] Urine clarity by refractomet ry automatedOrdered By: Raffaele Ellsworth on 09-03-2022 Clarity Refractometry automated (U) Clear Clear [facility] Urine culture routineOrdered By: Raffaele Ellsworth on 09-03-2022 Bacteria identified Cx Nom (U) 2 Days [facility] Urine glucose measurement by automated test strip (mass/volume)Ordered By: Raffaele Ellsworth on 09-03-2022 Glucose Auto test strip (U) [Mass/Vol] Normal mg/dL Normal [facility] Urine hemoglobin detection b y automated test stripOrdered By: Raffaele Ellsworth on 09-03-2022 Hemoglobin Auto test strip Ql (U) Trace Negative [facility] Urine leukocyte esterase det ection by automated test stripOrdered By: Raffaele Ellsworth on 09-03-2022 Leukocyte esterase Auto test strip Ql (U) 2+ Negative [facility] Urobilinogen Auto test strip (U) [Mass/Vol]Ordered By: Raffaele Ellsworth on 09-03-2022 Urobilinogen (U) [Mass/Vol] Normal mg/dL Normal [facility] WBC Auto (Bld) [#/Vol]Ordere d By: Raffaele Ellsworth on 09-03-2022 WBC (Bld) [#/Vol] 6.5 10*3/uL 3.8-11.6 [facility] pH Auto test strip (U)Ordere d By: Raffaele Ellsworth on 09-03-2022 pH (U) 5.0 [pH] 5.0-9.0 [facility] Basophils Auto (Bld) [#/Vol] Ordered By: Urbano Palma on 08-13-2022 Basophils (Bld) [#/Vol] 0.0 10*3/uL 0.0-0.2 [facility] Basophils/100 WBC Auto (Bld) Ordered By: Urbano Palma on 08-13-2022 Basophils/100 WBC (Bld) 0.3 % . [facility] Eosinophils Auto (Bld) [#/Vo l]Ordered By: Urbano Palma on 08-13-2022 Eosinophils (Bld) [#/Vol] 0.0 10*3/uL 0.0-0.45 [facility] Eosinophils/100 WBC Auto (Bl d)Ordered By: Urbano Palma on 08-13-2022 Eosinophils/100 WBC (Bld) 0.4 % . [facility] Erythrocyte distribution wid th Auto (RBC) [Ratio]Ordered By: Urbano Palma on 08-13-2022 Erythrocyte distribution width (RBC) [Ratio] 17.2 % 11.9-15.3 [facility] Hematocrit Auto (Bld) [Volum e fraction]Ordered By: Urbano Palma on 08-13-2022 Hematocrit (Bld) [Volume fraction] 30.3 % 34.0-46.4 [facility] Hemoglobin [Mass/volume] in BloodOrdered By: Urbano Palma on 08-13-2022 Hemoglobin (Bld) [Mass/Vol] 10.2 g/dL 11.8-15.4 [facility] Leukocytes [#/volume] correc nneka for nucleated erythrocytes in Blood by Automated counOrdered By: Urbano Palma on 08-13-2022 WBC corrected for nucl RBC Auto (Bld) [#/Vol] 10.0 10*3/uL 3.8-11.6 [facility] Lymphocytes Auto (Bld) [#/Vo l]Ordered By: Urbano Palma on 08-13-2022 Lymphocytes (Bld) [#/Vol] 1.7 10*3/uL 1.00-4.8 [facility] Lymphocytes/100 WBC Auto (Bl d)Ordered By: Urbano Palma on 08-13-2022 Lymphocytes/100 WBC (Bld) 16.5 % . [facility] MCH Auto (RBC) [Entitic mass ]Ordered By: Urbano Palma on 08-13-2022 MCH (RBC) [Entitic mass] 32.9 pg 24.7-34.3 [facility] MCHC Auto (RBC) [Mass/Vol]Or dered By: Urbano Palma on 08-13-2022 MCHC (RBC) [Mass/Vol] 33.6 g/dL 32.0-35.0 [facility] MCV Auto (RBC) [Entitic vol] Ordered By: Urbano Palma on 08-13-2022 MCV (RBC) [Entitic vol] 97.8 fL 80-100 [facility] Monocytes Auto (Bld) [#/Vol] Ordered By: Urbano Palma on 08-13-2022 Monocytes (Bld) [#/Vol] 0.5 10*3/uL 0.0-0.8 [facility] Monocytes/100 WBC Auto (Bld) Ordered By: Urbano Palma on 08-13-2022 Monocytes/100 WBC (Bld) 5.4 % . [facility] Neutrophils Auto (Bld) [#/Vo l]Ordered By: Urbano Palma on 08-13-2022 Neutrophils (Bld) [#/Vol] 7.7 10*3/uL 1.8-7.7 [facility] Neutrophils/100 WBC Auto (Bl d)Ordered By: Urbano Palma on 08-13-2022 Neutrophils/100 WBC (Bld) 77.4 % . [facility] Nucleated erythrocytes [Pres ence] in Blood by Automated countOrdered By: Urbano Palma on 08-13-2022 Nucleated RBC Auto Ql (Bld) 0.0 /100{WBC} 0-0.5 [facility] Platelet mean volume Auto (B ld) [Entitic vol]Ordered By: Urbano Palma on 08-13-2022 Platelet mean volume (Bld) [Entitic vol] 8.2 fL 6.3-10.7 [facility] Platelets Auto (Bld) [#/Vol] Ordered By: Urbano Palma on 08-13-2022 Platelets (Bld) [#/Vol] 125 10*3/uL 150-450 [facility] RBC Auto (Bld) [#/Vol]Ordere d By: Urbano Palma on 08-13-2022 RBC (Bld) [#/Vol] 3.10 10*6/uL 3.60-5.[address] [facility] WBC Auto (Bld) [#/Vol]Ordere d By: Urbano Palma on 08-13-2022 WBC (Bld) [#/Vol] 10.0 10*3/uL 3.8-11.[address] [facility] Glucose Glucometer (BldC) [M ass/Vol]Ordered By: Urbano Palma on 08-12-2022 Glucose [Mass/Vol] 82 mg/dL [facility] Comment on above: Random Glucose Refer ence Range is dependent on time and content of last meal. Glucose of more than 200 mg/dL in a nonstressed, ambulatory subject supports the diagnosis of Diabetes Mellitus. No Panel InformationOrdered By: Urbano Palma on 08-12-2022 Bedside Glucose Comment Glu2: cleaned meter [facility] Amphetamine Screen Ql (U)Ord ered By: Urbano Palma on 08-11-2022 Amphetamines Ql (U) Negative Negative [facility] Automated erythrocytes count in urine sediment (number/area)Ordered By: Urbano Palma on 08-11-2022 RBC Auto (Urine sed) [#/Area] 0-1 [HPF] 0-4 [facility] Automated leukocytes count i n urine sediment (number/area)Ordered By: Urbano Palma on 08-11-2022 WBC Auto (Urine sed) [#/Area] 50-100 [HPF] 0-4 [facility] Automated urine hyaline cast s count (number/volume)Ordered By: Urbano Palma on 08-11-2022 Hyaline casts Auto (U) [#/Vol] None seen [LPF] 0-1 [facility] Barbiturates [Presence] in U rineOrdered By: Urbano Palma on 08-11-2022 Barbiturates Ql (U) Negative Negative [facility] Benzodiazepines [Presence] i n UrineOrdered By: Urbano Palma on 08-11-2022 Benzodiazepines Ql (U) Negative Negative [facility] Bilirubin Test strip Ql (U)O rdered By: Urbano Palma on 08-11-2022 Bilirubin Ql (U) Negative Negative [facility] Casts typing in urine sedime nt by light microscopyOrdered By: Urbano Palma on 08-11-2022 Casts LM Nom (Urine sed) None seen [LPF] None Seen [facility] Color Auto (U)Ordered By: Mago Palma on 08-11-2022 Color (U) Yellow Yellow [facility] Glucose [Mass/volume] in Ser um or PlasmaOrdered By: Urbano Palma on 08-11-2022 Glucose [Mass/Vol] 69 mg/dL 70-100 [facility] Comment on above: ADA recommended refe rence rangeRandom Glucose Reference Range is dependent on time and content of last meal. Glucose of more than 200 mg/dL in a nonstressed, ambulatory subject supports the diagnosis of Diabetes Mellitus. Ketones Auto test strip (U) [Mass/Vol]Ordered By: Urbano Palma on 08-11-2022 Ketones (U) [Mass/Vol] Trace Negative [facility] Laboratory - Drug toxicology Ordered By: Urbano Palma on 08-11-2022 Opiates Ql (U) Negative Negative [facility] Nitrite Test strip Ql (U)Ord ered By: Urbano Palma on 08-11-2022 Nitrite Ql (U) Negative Negative [facility] Phencyclidine Screen Ql (U)O rdered By: Urbano Palma on 08-11-2022 Phencyclidine Ql (U) Negative Negative [facility] Comment on above: These are unconfirme d results and should not be used for legal purposes. Drug Cut-Off Concentration: AMPH 1000 ng/mL BOO 200 ng/mL HELGA 200 ng/mL COCM 300 ng/mL OP 300 ng/mL PCP 25 ng/mL Protein Auto test strip (U) [Mass/Vol]Ordered By: Urbano Palma on 08-11-2022 Protein (U) [Mass/Vol] 30 mg/dL Negative [facility] Reagin Ab [Presence] in Seru m by RPROrdered By: Urbano Palma on 08-11-2022 Reagin Ab RPR Ql (S) Non-Reactive Non Reactive [facility] Comment on above: Performed at: [place] [id number] Director: Prabhakar Warren PhD, Phone: [phone] Specific gravity Auto test s trip (U) [Rel density]Ordered By: Urbano Palma on 08-11-2022 Specific gravity (U) [Rel density] 1.021 1.001-1.030 [facility] Squamous epithelial cells de tection in urine sediment by light microscopyOrdered By: Urbano Palma on 08-11-2022 Epithelial cells.squamous LM Ql (Urine sed) 5-9 [HPF] 0-2 [facility] Urine bacteria detection by automated methodOrdered By: Urbano Palma on 08-11-2022 Bacteria Auto Ql (U) 1+ None Seen [facility] Urine clarity by refractomet ry automatedOrdered By: Urbano Palma on 08-11-2022 Clarity Refractometry automated (U) Cloudy Clear [facility] Urine cocaine detectionOrder ed By: Urbano Palma on 08-11-2022 Cocaine Ql (U) Negative Negative [facility] Urine culture routineOrdered By: Urbano Palma on 08-11-2022 Bacteria identified Cx Nom (U) Cinthya albicans [facility] Urine glucose measurement by automated test strip (mass/volume)Ordered By: Urbano Palma on 08-11-2022 Glucose Auto test strip (U) [Mass/Vol] Normal mg/dL Normal [facility] Urine hemoglobin detection b y automated test stripOrdered By: Urbano Palma on 02-20-2023 Hemoglobin Auto test strip Ql (U) Negative Negative [facility] Urine leukocyte esterase det ection by automated test stripOrdered By: Urbano Palma on 08-11-2022 Leukocyte esterase Auto test strip Ql (U) 3+ Negative [facility] Urobilinogen Auto test strip (U) [Mass/Vol]Ordered By: Urbano Palma on 08-11-2022 Urobilinogen (U) [Mass/Vol] Normal mg/dL Normal [facility] pH Auto test strip (U)Ordere d By: Urbano Palma on 08-11-2022 pH (U) 5.5 [pH] 5.0-9.0 [facility] Albumin [Mass/volume] in Ser um or PlasmaOrdered By: CANDICE Cody on 08-02-2022 Albumin [Mass/Vol] 2.7 g/dL 3.2-5.5 [facility] Basophils Auto (Bld) [#/Vol] Ordered By: CANDICE Cody on 08-02-2022 Basophils (Bld) [#/Vol] 0.0 10*3/uL 0.0-0.2 [facility] Basophils/100 WBC Auto (Bld) Ordered By: CANDICE Cody on 08-02-2022 Basophils/100 WBC (Bld) 0.3 % . [facility] Creatinine and Glomerular fi ltration rate.predicted panel (S/P/Bld)Ordered By: CANDICE [place] on 08-02-2022 Creatinine [Mass/Vol] 0.64 mg/dL 0.44-1.03 [facility] Eosinophils Auto (Bld) [#/Vo l]Ordered By: CANDICE Cody on 08-02-2022 Eosinophils (Bld) [#/Vol] 0.1 10*3/uL 0.0-0.45 [facility] Eosinophils/100 WBC Auto (Bl d)Ordered By: CANDICE Cody on 08-02-2022 Eosinophils/100 WBC (Bld) 0.8 % . [facility] Erythrocyte distribution wid th Auto (RBC) [Ratio]Ordered By: CANDICE Cody on 08-02-2022 Erythrocyte distribution width (RBC) [Ratio] 17.8 % 11.9-15.3 [facility] Estimated glomerular filtrat ion rate (GFR) non- AmericanOrdered By: JASON [place] on 08-02-2022 GFR/1.73 sq M.predicted among non-blacks MDRD (S/P/Bld) [Vol rate/Area] > 60 mL/Min [facility] Globulin Calc (S) [Mass/Vol] Ordered By: CANDICE Cody on 08-02-2022 Globulin (S) [Mass/Vol] 3.1 g/dL [facility] Hematocrit Auto (Bld) [Volum e fraction]Ordered By: CANDICE Cody on 08-02-2022 Hematocrit (Bld) [Volume fraction] 34.8 % 34.0-46.4 [facility] Hemoglobin [Mass/volume] in BloodOrdered By: CANDICE Cody on 08-02-2022 Hemoglobin (Bld) [Mass/Vol] 11.5 g/dL 11.8-15.4 [facility] Leukocytes [#/volume] correc nneka for nucleated erythrocytes in Blood by Automated counOrdered By: CANDICE Cody on 08-02-2022 WBC corrected for nucl RBC Auto (Bld) [#/Vol] 9.1 10*3/uL 3.8-11.6 [facility] Lymphocytes Auto (Bld) [#/Vo l]Ordered By: CANDICE Cody on 08-02-2022 Lymphocytes (Bld) [#/Vol] 1.6 10*3/uL 1.00-4.8 [facility] Lymphocytes/100 WBC Auto (Bl d)Ordered By: CANDICE Cody on 08-02-2022 Lymphocytes/100 WBC (Bld) 17.0 % . [facility] MCH Auto (RBC) [Entitic mass ]Ordered By: CANDICE Cody on 08-02-2022 MCH (RBC) [Entitic mass] 32.3 pg 24.7-34.3 [facility] MCHC Auto (RBC) [Mass/Vol]Or dered By: CANDICE Cody on 08-02-2022 MCHC (RBC) [Mass/Vol] 33.2 g/dL 32.0-35.0 [facility] MCV Auto (RBC) [Entitic vol] Ordered By: CANDICE Cody on 08-02-2022 MCV (RBC) [Entitic vol] 97.4 fL 80-100 [facility] Monocytes Auto (Bld) [#/Vol] Ordered By: CANDICE Cody on 08-02-2022 Monocytes (Bld) [#/Vol] 0.6 10*3/uL 0.0-0.8 [facility] Monocytes/100 WBC Auto (Bld) Ordered By: CANDICE Cody on 08-02-2022 Monocytes/100 WBC (Bld) 6.8 % . [facility] Neutrophils Auto (Bld) [#/Vo l]Ordered By: CANDICE Cody on 08-02-2022 Neutrophils (Bld) [#/Vol] 6.9 10*3/uL 1.8-7.7 [facility] Neutrophils/100 WBC Auto (Bl d)Ordered By: CANDICE Cody on 08-02-2022 Neutrophils/100 WBC (Bld) 75.1 % . [facility] No Panel InformationOrdered By: CANDICE Cody on 08-02-2022 Estimated GFR () > 60 mL/Min [facility] Comment on above: GFR estimated refere nce range: According to KDOQI guidelines, <60 ml/min/1.73m2 is sufficient to diagnose a patient with chronic kidney disease. Pharmacy Creatinine Clearance (Chem 152.15 [facility] Nucleated erythrocytes [Pres ence] in Blood by Automated countOrdered By: CANDICE Cody on 08-02-2022 Nucleated RBC Auto Ql (Bld) 0.0 /100{WBC} 0-0.5 [facility] Platelet mean volume Auto (B ld) [Entitic vol]Ordered By: CANDICE Cody on 08-02-2022 Platelet mean volume (Bld) [Entitic vol] 8.2 fL 6.3-10.7 [facility] Platelets Auto (Bld) [#/Vol] Ordered By: CANDICE Cody on 08-02-2022 Platelets (Bld) [#/Vol] 130 10*3/uL 150-450 [facility] Protein [Mass/volume] in Ser um or PlasmaOrdered By: CANDICE Cody on 08-02-2022 Protein [Mass/Vol] 5.8 g/dL 6.1-7.9 [facility] RBC Auto (Bld) [#/Vol]Ordere d By: CANDICE Cody on 08-02-2022 RBC (Bld) [#/Vol] 3.57 10*6/uL 3.60-5.[address] [facility] Reagin Ab [Presence] in Seru m by RPROrdered By: CANDICE Cody on 08-02-2022 Reagin Ab RPR Ql (S) Non-Reactive Non Reactive [facility] Comment on above: Performed at: [facility] [employer] [place] [id number] Director: Prabhakar Warren PhD, Phone: [phone] Serum or plasma alanine cox otransferase measurement without P-5'-P (enzymatic activiOrdered By: CANDICE Cody on 08-02-2022 ALT No additional P-5'-P [Catalytic activity/Vol] 12 U/L 10-60 [facility] Serum or plasma albumin/glob ulin mass ratioOrdered By: CANDICE Cody on 08-02-2022 Albumin/Globulin [Mass ratio] 0.9 {ratio} [facility] Serum or plasma alkaline sam sphatase measurement (enzymatic activity/volume)Ordered By: CANDICE Cody on 08-02-2022 ALP [Catalytic activity/Vol] 97 U/L 32-92 [facility] Serum or plasma anion gap de terminationOrdered By: CANDICE Cody on 08-02-2022 Anion gap [Moles/Vol] 11.3 mmol/L 6.0-15.0 [facility] Serum or plasma aspartate am inotransferase measurement (enzymatic activity/volume)Ordered By: CANDICE Cody on 02-11-2023 AST [Catalytic activity/Vol] 19 U/L 10-42 [facility] Serum or plasma calcium katie urement (mass/volume)Ordered By: CANDICE Coyd on 08-02-2022 Calcium [Mass/Vol] 9.6 mg/dL 8.2-10.2 [facility] Serum or plasma chloride victorino surement (moles/volume)Ordered By: CANDICE Cody on 08-02-2022 Chloride [Moles/Vol] 107 mmol/L 95-114 [facility] Serum or plasma glucose katie urement (mass/volume)Ordered By: CANDICE [place] on 08-02-2022 Glucose [Mass/Vol] 84 mg/dL 70-100 [facility] Comment on above: ADA recommended refe rence rangeRandom Glucose Reference Range is dependent on time and content of last meal. Glucose of more than 200 mg/dL in a nonstressed, ambulatory subject supports the diagnosis of Diabetes Mellitus. Serum or plasma potassium me asurement (moles/volume)Ordered By: CANDICE Cody on 08-02-2022 Potassium [Moles/Vol] 3.8 mmol/L 3.5-5.1 [facility] Serum or plasma sodium measu rement (moles/volume)Ordered By: CANDICE Cody on 08-02-2022 Sodium [Moles/Vol] 135 mmol/L 136-146 [facility] Serum or plasma total biliru bin measurement (mass/volume)Ordered By: CANDICE Cody on 08-02-2022 Bilirubin [Mass/Vol] 0.6 mg/dL 0.3-1.2 [facility] Serum or plasma total carbon dioxide measurement (moles/volume)Ordered By: JASON [place] on 08-02-2022 CO2 [Moles/Vol] 20.5 mmol/L 22.0-30.[address] [facility] Serum or plasma urea nitroge n measurement (mass/volume)Ordered By: CANDICE Cody on 08-02-2022 Urea nitrogen [Mass/Vol] 6 mg/dL 9-23 [facility] Serum or plasma uric acid me asurement (mass/volume)Ordered By: CANDICE [place] on 08-02-2022 Urate [Mass/Vol] 4.5 mg/dL 2.6-7.[address] [facility] WBC Auto (Bld) [#/Vol]Ordere d By: CANDICE Cody on 08-02-2022 WBC (Bld) [#/Vol] 9.1 10*3/uL 3.8-11.6 [facility] Amphetamine Screen Ql (U)Ord ered By: CANDICE [place] on 08-01-2022 Amphetamines Ql (U) Negative Negative [facility] Automated erythrocytes count in urine sediment (number/area)Ordered By: CANDICE [place] on 08-01-2022 RBC Auto (Urine sed) [#/Area] 3-4 [HPF] 0-4 [facility] Automated leukocytes count i n urine sediment (number/area)Ordered By: CANDICE Cody on 08-01-2022 WBC Auto (Urine sed) [#/Area] 50-100 [HPF] 0-4 [facility] Barbiturates [Presence] in U rineOrdered By: CANDICE Cody on 08-01-2022 Barbiturates Ql (U) Negative Negative [facility] Benzodiazepines [Presence] i n UrineOrdered By: CANDICE Cody on 08-01-2022 Benzodiazepines Ql (U) Negative Negative [facility] Bilirubin Test strip Ql (U)O rdered By: CANDICE Cody on 08-01-2022 Bilirubin Ql (U) Negative Negative [facility] Color Auto (U)Ordered By: MD CAMILLE [place] on 08-01-2022 Color (U) Yellow Yellow [facility] Ketones Auto test strip (U) [Mass/Vol]Ordered By: CANDICE [place] on 08-01-2022 Ketones (U) [Mass/Vol] Negative Negative [facility] Laboratory - Drug toxicology Ordered By: CANDICE [place] on 08-01-2022 Opiates Ql (U) Negative Negative [facility] Laboratory - UrinalysisOrder ed By: CANDICE [place] on 08-01-2022 Hyaline casts LM Ql (Urine sed) 0-8 [LPF] 0-8 [facility] Nitrite Test strip Ql (U)Ord ered By: CANDICE [place] on 08-01-2022 Nitrite Ql (U) Negative Negative [facility] Phencyclidine Screen Ql (U)O rdered By: CANDICE Cody on 08-01-2022 Phencyclidine Ql (U) Negative Negative [facility] Comment on above: These are unconfirme d results and should not be used for legal purposes. Drug Cut-Off Concentration: AMPH 1000 ng/mL BOO 200 ng/mL HELGA 200 ng/mL COCM 300 ng/mL OP 300 ng/mL PCP 25 ng/mL Protein Auto test strip (U) [Mass/Vol]Ordered By: CANDICE [place] on 08-01-2022 Protein (U) [Mass/Vol] Negative Negative [facility] Specific gravity Auto test s trip (U) [Rel density]Ordered By: CANDICE [place] on 08-01-2022 Specific gravity (U) [Rel density] 1.014 1.001-1.030 [facility] Squamous epithelial cells de tection in urine sediment by light microscopyOrdered By: CANDICE [place] on 08-01-2022 Epithelial cells.squamous LM Ql (Urine sed) 5-9 [HPF] 0-2 [facility] Urine bacteria detection by automated methodOrdered By: CANDICE [place] on 08-01-2022 Bacteria Auto Ql (U) None seen None Seen [facility] Urine clarity by refractomet ry automatedOrdered By: CANDICE [place] on 08-01-2022 Clarity Refractometry automated (U) Cloudy Clear [facility] Urine cocaine detectionOrder ed By: CANDICE [place] on 08-01-2022 Cocaine Ql (U) Negative Negative [facility] Urine culture routineOrdered By: CANDICE [place] on 08-01-2022 Bacteria identified Cx Nom (U) 2 Days [facility] Bacteria identified Cx Nom (U) 2 Days [facility] Urine glucose measurement by automated test strip (mass/volume)Ordered By: JASON [place] on 08-01-2022 Glucose Auto test strip (U) [Mass/Vol] Normal mg/dL Normal [facility] Urine hemoglobin detection b y automated test stripOrdered By: CANDICE [place] on 08-01-2022 Hemoglobin Auto test strip Ql (U) Negative Negative [facility] Urine leukocyte esterase det ection by automated test stripOrdered By: CANDICE [place] on 08-01-2022 Leukocyte esterase Auto test strip Ql (U) 4+ Negative [facility] Urobilinogen Auto test strip (U) [Mass/Vol]Ordered By: CANDICE [place] on 08-01-2022 Urobilinogen (U) [Mass/Vol] Normal mg/dL Normal [facility] pH Auto test strip (U)Ordere d By: CANDICE [place] on 08-01-2022 pH (U) 5.5 [pH] 5.0-9.0 [facility] S. agalactiae Org specific c x Ql (Unsp spec)Ordered By: Urbano Palma on 07-25-2022 Group B Streptococcus Culture Strep. agalactiae Grp B [facility] Group B Streptococcus Culture Strep. agalactiae Grp B [facility] Office Visit (Cardiology)on 07-22-2022 Follow-up visit Diagnoses/Problems [...] Patient here for 6 month follow-up with [facility]. 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 Personal review of ECG and cardiac data [...] Overweight AHA (more content not included)... Normal [employer] Tobacco Screening.on 023 Fall risk assessment a) No falls within the last year [facility] [employer] [address] DO Work Phone: Tobacco use status [facility] b) No [facility] [employer] [address] DO Work Phone: Tobacco Screening. Yes [facility] [address] DO Work Phone: Amphetamine Screen Ql (U)Ord ered By: Michael Cerda on 07-15-2022 Amphetamines Ql (U) Negative Negative [facility] Automated erythrocytes count in urine sediment (number/area)Ordered By: Michael Cerda on 07-15-2022 RBC Auto (Urine sed) [#/Area] 0-1 [HPF] 0-4 [facility] Automated leukocytes count i n urine sediment (number/area)Ordered By: Michael Cerda on 07-15-2022 WBC Auto (Urine sed) [#/Area] 50-100 [HPF] 0-4 [facility] Barbiturates [Presence] in U rineOrdered By: Michael Cerda on 07-15-2022 Barbiturates Ql (U) Negative Negative [facility] Basophils Auto (Bld) [#/Vol] Ordered By: Michael Cerda on 07-15-2022 Basophils (Bld) [#/Vol] 0.0 10*3/uL 0.0-0.2 [facility] Basophils/100 WBC Auto (Bld) Ordered By: Michael Cerda on 07-15-2022 Basophils/100 WBC (Bld) 0.4 % . [facility] Benzodiazepines [Presence] i n UrineOrdered By: Michael Cerda on 07-15-2022 Benzodiazepines Ql (U) Negative Negative [facility] Bilirubin Test strip Ql (U)O rdered By: Michael Cerda on 07-15-2022 Bilirubin Ql (U) Negative Negative [facility] Body fluid albumin measureme nt (mass/volume)Ordered By: Michael Cerda on 07-15-2022 Albumin (Body fld) [Mass/Vol] 2.9 g/dL 3.2-5.5 [facility] Cannabinoids [Presence] in U rine by Screen methodOrdered By: Michael Cerda on 07-15-2022 Cannabinoids Screen Ql (U) Negative Negative [facility] Comment on above: These are unconfirme d results and should not be used for legal purposes. Drug Cut-Off Concentration: AMPH 1000 ng/mL BOO 200 ng/mL HELGA 200 ng/mL COCM 300 ng/mL OP 300 ng/mL PCP 25 ng/mL THC 20 ng/mL Cholesterol [Mass/volume] in Serum or PlasmaOrdered By: Eduardo Swain on 07-15-2022 Cholesterol [Mass/Vol] 250 mg/dL 140-200 [facility] Comment on above: Chol less than 200 m g/dl low riskChol 201-239 mg/dl borderline riskChol 240 mg/dl and greater high risk Cholesterol in LDL Calc [Mas s/Vol]Ordered By: Eduardo Swain on 07-15-2022 Cholesterol in LDL [Mass/Vol] 138 mg/dL 0-100 [facility] Comment on above: LDL ATP III CLASSIFI CATIONLDL less than 100 mg/dL OptimalLDL 100-129 mg/dL Near or above optimalLDL 130-159 mg/dL Borderline highLDL 160-189 mg/dL HighLDL greater than 189 mg/dL Very high Cholesterol in VLDL Calc [Ma ss/Vol]Ordered By: Eduardo Swain on 07-15-2022 Cholesterol in VLDL [Mass/Vol] 40 mg/dL [facility] Color Auto (U)Ordered By: Lorene Cerda on 07-15-2022 Color (U) Yellow Yellow [facility] Creatinine and Glomerular fi ltration rate.predicted panel (S/P/Bld)Ordered By: Michael Cerda on 07-15-2022 Creatinine [Mass/Vol] 0.66 mg/dL 0.44-1.03 [facility] Eosinophils Auto (Bld) [#/Vo l]Ordered By: Michael Cerda on 07-15-2022 Eosinophils (Bld) [#/Vol] 0.0 10*3/uL 0.0-0.45 [facility] Eosinophils/100 WBC Auto (Bl d)Ordered By: Michael Cerda on 07-15-2022 Eosinophils/100 WBC (Bld) 0.4 % . [facility] Erythrocyte distribution wid th Auto (RBC) [Ratio]Ordered By: Michael Cerda on 07-15-2022 Erythrocyte distribution width (RBC) [Ratio] 18.8 % 11.9-15.3 [facility] Estimated glomerular filtrat ion rate (GFR) non- AmericanOrdered By: Michael Cerda on 07-15-2022 GFR/1.73 sq M.predicted among non-blacks MDRD (S/P/Bld) [Vol rate/Area] > 60 mL/Min [facility] Globulin Calc (S) [Mass/Vol] Ordered By: Michael Cerda on 07-15-2022 Globulin (S) [Mass/Vol] 3.2 g/dL [facility] Hematocrit Auto (Bld) [Volum e fraction]Ordered By: Michael Cerda on 07-15-2022 Hematocrit (Bld) [Volume fraction] 34.4 % 34.0-46.4 [facility] Hemoglobin [Mass/volume] in BloodOrdered By: Michael Cerda on 07-15-2022 Hemoglobin (Bld) [Mass/Vol] 11.3 g/dL 11.8-15.4 [facility] Ketones Auto test strip (U) [Mass/Vol]Ordered By: Michael Cerda on 07-15-2022 Ketones (U) [Mass/Vol] 2+ Negative [facility] - Drug toxicology Ordered By: Michael Cerda on 07-15-2022 Opiates Ql (U) Negative Negative [facility] Laboratory - UrinalysisOrder ed By: Michael Cerda on 07-15-2022 Hyaline casts LM Ql (Urine sed) 0-8 [LPF] 0-8 [facility] Leukocytes [#/volume] correc nneka for nucleated erythrocytes in Blood by Automated counOrdered By: Michael Cerda on 07-15-2022 WBC corrected for nucl RBC Auto (Bld) [#/Vol] 7.8 10*3/uL 3.8-11.6 [facility] Lymphocytes Auto (Bld) [#/Vo l]Ordered By: Michael Cerda on 07-15-2022 Lymphocytes (Bld) [#/Vol] 1.2 10*3/uL 1.00-4.8 [facility] Lymphocytes/100 WBC Auto (Bl d)Ordered By: Michael Cerda on 07-15-2022 Lymphocytes/100 WBC (Bld) 15.2 % . [facility] MCH Auto (RBC) [Entitic mass ]Ordered By: Michael Cerda on 07-15-2022 MCH (RBC) [Entitic mass] 31.8 pg 24.7-34.3 [facility] MCHC Auto (RBC) [Mass/Vol]Or dered By: Michael Cerda on 07-15-2022 MCHC (RBC) [Mass/Vol] 33.0 g/dL 32.0-35.0 [facility] MCV Auto (RBC) [Entitic vol] Ordered By: Michael Cerda on 07-15-2022 MCV (RBC) [Entitic vol] 96.4 fL 80-100 [facility] Monocyte distribution width [Entitic volume] in Blood by AutomatedOrdered By: Michael Cerda on 07-15-2022 Monocyte distribution width Auto (Bld) [Entitic vol] 19.01 % 0.00-20.00 [facility] Monocytes Auto (Bld) [#/Vol] Ordered By: Michael Cerda on 07-15-2022 Monocytes (Bld) [#/Vol] 0.4 10*3/uL 0.0-0.8 [facility] Monocytes/100 WBC Auto (Bld) Ordered By: Michael Cerda on 07-15-2022 Monocytes/100 WBC (Bld) 5.1 % . [facility] Neutrophils Auto (Bld) [#/Vo l]Ordered By: Michael Cerda on 07-15-2022 Neutrophils (Bld) [#/Vol] 6.1 10*3/uL 1.8-7.7 [facility] Neutrophils/100 WBC Auto (Bl d)Ordered By: Michael Cerda on 07-15-2022 Neutrophils/100 WBC (Bld) 78.9 % . [facility] Nitrite Test strip Ql (U)Ord ered By: Michael Cerda on 07-15-2022 Nitrite Ql (U) Negative Negative [facility] No Panel InformationOrdered By: Eduardo Swain on 07-15-2022 25-Hydroxy Vitamin D Total 38.8 ng/mL 30-100 [facility] Comment on above: VITAMIN D STATUS 25( [place])VITAMIN D RANGE (ng/mL) Deficient <20 Insufficient 20 to <30Sufficient 30 to 100Reference: Franklyn MF,Benjamin GRAF, Andreina MARQUEZ, et al. Evaluation,treatment, and prevention of vitamin D deficiency; an Endocrine Society clinical practice guideline. JCEM. 2010; 96(7):1911-30. No Panel InformationOrdered By: Michael Cerda on 07-15-2022 Estimated GFR () > 60 mL/Min [facility] Comment on above: GFR estimated refere nce range: According to KDOQI guidelines, <60 ml/min/1.73m2 is sufficient to diagnose a patient with chronic kidney disease. Pharmacy Creatinine Clearance (Chem 148.00 [facility] Nucleated erythrocytes [Pres ence] in Blood by Automated countOrdered By: Michael Cerda on 07-15-2022 Nucleated RBC Auto Ql (Bld) 0.1 /100{WBC} 0-0.5 [facility] Phencyclidine Screen Ql (U)O rdered By: Michael Cerda on 07-15-2022 Phencyclidine Ql (U) Negative Negative [facility] Platelet mean volume Auto (B ld) [Entitic vol]Ordered By: Michael Cerda on 07-15-2022 Platelet mean volume (Bld) [Entitic vol] 7.9 fL 6.3-10.7 [facility] Platelets Auto (Bld) [#/Vol] Ordered By: Michael Cerda on 07-15-2022 Platelets (Bld) [#/Vol] 157 10*3/uL 150-450 [facility] Protein Auto test strip (U) [Mass/Vol]Ordered By: Michael Cerda on 07-15-2022 Protein (U) [Mass/Vol] Negative Negative [facility] Protein [Mass/volume] in Ser um or PlasmaOrdered By: Michael Cerda on 07-15-2022 Protein [Mass/Vol] 6.1 g/dL 6.1-7.9 [facility] RBC Auto (Bld) [#/Vol]Ordere d By: Michael Cerda on 07-15-2022 RBC (Bld) [#/Vol] 3.57 10*6/uL 3.60-5.[address] [facility] Serum or plasma alanine cox otransferase measurement without P-5'-P (enzymatic activiOrdered By: Michael Cerda on 07-15-2022 ALT No additional P-5'-P [Catalytic activity/Vol] 14 U/L 10-60 [facility] Serum or plasma albumin/glob ulin mass ratioOrdered By: Michael Cerda on 07-15-2022 Albumin/Globulin [Mass ratio] 0.9 {ratio} [facility] Serum or plasma alkaline sam sphatase measurement (enzymatic activity/volume)Ordered By: Michael Cerda on 07-15-2022 ALP [Catalytic activity/Vol] 83 U/L 32-92 [facility] Serum or plasma anion gap de terminationOrdered By: Michael Cerda on 07-15-2022 Anion gap [Moles/Vol] 13.3 mmol/L 6.0-15.0 [facility] Serum or plasma aspartate am inotransferase measurement (enzymatic activity/volume)Ordered By: Michael Cerda on 07-15-2022 AST [Catalytic activity/Vol] 22 U/L 10-42 [facility] Serum or plasma calcium katie urement (mass/volume)Ordered By: Michael Cerda on 07-15-2022 Calcium [Mass/Vol] 9.5 mg/dL 8.2-10.2 [facility] Serum or plasma chloride victorino surement (moles/volume)Ordered By: Michael Cerda on 07-15-2022 Chloride [Moles/Vol] 104 mmol/L 95-114 [facility] Serum or plasma ethanol katie urement (mass/volume)Ordered By: Michael Cerda on 07-15-2022 Ethanol [Mass/Vol] mg/dL [facility] Ethanol [Mass/Vol] TNP [facility] Comment on above: Test not performed Serum or plasma glucose katie urement (mass/volume)Ordered By: Michael Cerda on 07-15-2022 Glucose [Mass/Vol] 82 mg/dL 70-100 [facility] Comment on above: ADA recommended refe rence rangeRandom Glucose Reference Range is dependent on time and content of last meal. Glucose of more than 200 mg/dL in a nonstressed, ambulatory subject supports the diagnosis of Diabetes Mellitus. Serum or plasma high density lipoprotein (HDL) cholesterol measurementOrdered By: Eduardo Swain on 07-15-2022 Cholesterol in HDL [Mass/Vol] 72 mg/dL 35-85 [facility] Comment on above: HDL CHOL ATP-III CLA SSIFICATION Cardiovascular RiskHDL > or equal to 60 mg/dL LOWHDL < 40 mg/dL HIGH Serum or plasma potassium me asurement (moles/volume)Ordered By: Michael Cerda on 07-15-2022 Potassium [Moles/Vol] 3.6 mmol/L 3.5-5.1 [facility] Serum or plasma sodium measu rement (moles/volume)Ordered By: Michael Cerda on 07-15-2022 Sodium [Moles/Vol] 135 mmol/L 136-146 [facility] Serum or plasma total biliru bin measurement (mass/volume)Ordered By: Michael Cerda on 07-15-2022 Bilirubin [Mass/Vol] 0.6 mg/dL 0.3-1.2 [facility] Serum or plasma total carbon dioxide measurement (moles/volume)Ordered By: Michael Cerda on 07-15-2022 CO2 [Moles/Vol] 21.3 mmol/L 22.0-30.[address] [facility] Serum or plasma total choles terol/high density lipoprotein (HDL) cholesterol mass ratOrdered By: Eduardo Swain on 07-15-2022 Cholesterol.total/Chol esterol in HDL [Mass ratio] 3.5 {ratio} <5.0 [facility] Serum or plasma urea nitroge n measurement (mass/volume)Ordered By: Michael Cerda on 07-15-2022 Urea nitrogen [Mass/Vol] 4 mg/dL 9-23 [facility] Specific gravity Auto test s trip (U) [Rel density]Ordered By: Michael Cerda on 07-15-2022 Specific gravity (U) [Rel density] 1.010 1.001-1.030 [facility] Squamous epithelial cells de tection in urine sediment by light microscopyOrdered By: Michael Cerda on 07-15-2022 Epithelial cells.squamous LM Ql (Urine sed) 5-9 [HPF] 0-2 [facility] TSH DL <= 0.005 mIU/L QnOrde red By: Eduardo Swain on 07-15-2022 TSH Qn 2.04 m[IU]/L 0.45-5.33 [facility] Triglyceride [Mass/volume] i n Serum or PlasmaOrdered By: Eduardo Swain on 07-15-2022 Triglyceride [Mass/Vol] 200 mg/dL 35-149 [facility] Comment on above: TRIG ATP III CLASSIF ICATIONTRIG less than 150 mg/dL NormalTRIG 150-199 mg/dL Borderline highTRIG 200-500 mg/dL High TRIG greater than 500 mg/dL Very highStandard traceable to the Center for Disease Conrtrol and Prevention (CDC) test method. Urine bacteria detection by automated methodOrdered By: Michael Cerda on 07-15-2022 Bacteria Auto Ql (U) None seen None Seen [facility] Urine clarity by refractomet ry automatedOrdered By: Michael Cerda on 07-15-2022 Clarity Refractometry automated (U) Cloudy Clear [facility] Urine cocaine detectionOrder ed By: Michael Cerda on 07-15-2022 Cocaine Ql (U) Negative Negative [facility] Urine culture routineOrdered By: Michael Cerda on 07-15-2022 Bacteria identified Cx Nom (U) 2 Days [facility] Urine glucose measurement by automated test strip (mass/volume)Ordered By: Michael Cerda on 07-15-2022 Glucose Auto test strip (U) [Mass/Vol] Normal mg/dL Normal [facility] Urine hemoglobin detection b y automated test stripOrdered By: Michael Cerda on 07-15-2022 Hemoglobin Auto test strip Ql (U) Negative Negative [facility] Urine leukocyte esterase det ection by automated test stripOrdered By: Michael Cerda on 07-15-2022 Leukocyte esterase Auto test strip Ql (U) 4+ Negative [facility] Urobilinogen Auto test strip (U) [Mass/Vol]Ordered By: Michael Cerda on 07-15-2022 Urobilinogen (U) [Mass/Vol] Normal mg/dL Normal [facility] WBC Auto (Bld) [#/Vol]Ordere d By: Michael Cerda on 07-15-2022 WBC (Bld) [#/Vol] 7.8 10*3/uL 3.8-11.6 [facility] pH Auto test strip (U)Ordere d By: Michael Cerda on 07-15-2022 pH (U) 5.5 [pH] 5.0-9.0 [facility] Basophils Auto (Bld) [#/Vol] Ordered By: Urbano Palma on 07-09-2022 Basophils (Bld) [#/Vol] 0.0 10*3/uL 0.0-0.2 [facility] Basophils/100 WBC Auto (Bld) Ordered By: Urbano Palma on 07-09-2022 Basophils/100 WBC (Bld) 0.4 % . [facility] Eosinophils Auto (Bld) [#/Vo l]Ordered By: Urbano Palma on 07-09-2022 Eosinophils (Bld) [#/Vol] 0.1 10*3/uL 0.0-0.45 [facility] Eosinophils/100 WBC Auto (Bl d)Ordered By: Urbano Palma on 07-09-2022 Eosinophils/100 WBC (Bld) 1.0 % . [facility] Erythrocyte distribution wid th Auto (RBC) [Ratio]Ordered By: Urbano Palma on 07-09-2022 Erythrocyte distribution width (RBC) [Ratio] 19.0 % 11.9-15.3 [facility] Hematocrit Auto (Bld) [Volum e fraction]Ordered By: Urbano Palma on 07-09-2022 Hematocrit (Bld) [Volume fraction] 37.4 % 34.0-46.4 [facility] Hemoglobin [Mass/volume] in BloodOrdered By: Urbano Palma on 07-09-2022 Hemoglobin (Bld) [Mass/Vol] 12.2 g/dL 11.8-15.4 [facility] Leukocytes [#/volume] correc nneka for nucleated erythrocytes in Blood by Automated counOrdered By: Urbano Palma on 07-09-2022 WBC corrected for nucl RBC Auto (Bld) [#/Vol] 8.1 10*3/uL 3.8-11.6 [facility] Lymphocytes Auto (Bld) [#/Vo l]Ordered By: Urbano Palma on 07-09-2022 Lymphocytes (Bld) [#/Vol] 1.2 10*3/uL 1.00-4.8 [facility] Lymphocytes/100 WBC Auto (Bl d)Ordered By: Urbano Palma on 07-09-2022 Lymphocytes/100 WBC (Bld) 14.9 % . [facility] MCH Auto (RBC) [Entitic mass ]Ordered By: Urbano Palma on 07-09-2022 MCH (RBC) [Entitic mass] 31.4 pg 24.7-34.3 [facility] MCHC Auto (RBC) [Mass/Vol]Or dered By: Urbano Palma on 07-09-2022 MCHC (RBC) [Mass/Vol] 32.7 g/dL 32.0-35.0 [facility] MCV Auto (RBC) [Entitic vol] Ordered By: Urbano Palma on 07-09-2022 MCV (RBC) [Entitic vol] 95.8 fL 80-100 [facility] Monocytes Auto (Bld) [#/Vol] Ordered By: Urbano Palma on 07-09-2022 Monocytes (Bld) [#/Vol] 0.4 10*3/uL 0.0-0.8 [facility] Monocytes/100 WBC Auto (Bld) Ordered By: Urbano Palma on 07-09-2022 Monocytes/100 WBC (Bld) 5.1 % . [facility] Neutrophils Auto (Bld) [#/Vo l]Ordered By: Urbano Palma on 07-09-2022 Neutrophils (Bld) [#/Vol] 6.3 10*3/uL 1.8-7.7 [facility] Neutrophils/100 WBC Auto (Bl d)Ordered By: Urbano Palma on 07-09-2022 Neutrophils/100 WBC (Bld) 78.6 % . [facility] Nucleated erythrocytes [Pres ence] in Blood by Automated countOrdered By: Urbano Palma on 07-09-2022 Nucleated RBC Auto Ql (Bld) 0.1 /100{WBC} 0-0.5 [facility] Platelet mean volume Auto (B ld) [Entitic vol]Ordered By: Urbano Palma on 07-09-2022 Platelet mean volume (Bld) [Entitic vol] 8.2 fL 6.3-10.7 [facility] Platelets Auto (Bld) [#/Vol] Ordered By: Urbano Palma on 07-09-2022 Platelets (Bld) [#/Vol] 180 10*3/uL 150-450 [facility] RBC Auto (Bld) [#/Vol]Ordere d By: Urbano Palma on 07-09-2022 RBC (Bld) [#/Vol] 3.91 10*6/uL 3.60-5.[address] [facility] WBC Auto (Bld) [#/Vol]Ordere d By: Urbano Palma on 07-09-2022 WBC (Bld) [#/Vol] 8.1 10*3/uL 3.8-11.6 [facility] Serum or plasma glucose tolangelica rai 3 hours panelOrdered By: Urbano Palma on 06-30-2022 Glucose tolerance 3 hours panel See comment [facility] Comment on above: FASTING 82 Col: 03/14 0616 1HR GLU 215 Col: 06/30/22 0800 2HR GLU 194 Col: 06/30/22 0901 3HR GLU 71 Col: 06/30/22 1000 Amphetamine Screen Ql (U)Ord ered By: DELANEY CARLISLE on 06-26-2022 Amphetamines Ql (U) Negative Negative [facility] Automated erythrocytes count in urine sediment (number/area)Ordered By: DELANEY CARLISLE on 06-26-2022 RBC Auto (Urine sed) [#/Area] 1-2 [HPF] 0-4 [facility] Automated leukocytes count i n urine sediment (number/area)Ordered By: DELANEY CARLISLE on 06-26-2022 WBC Auto (Urine sed) [#/Area] 50-100 [HPF] 0-4 [facility] Automated urine hyaline cast s count (number/volume)Ordered By: DELANEY CARLISLE on 06-26-2022 Hyaline casts Auto (U) [#/Vol] None seen [LPF] 0-1 [facility] Automated urine sediment claudia cium oxalate crystal count by microscopy (number/high powOrdered By: DELANEY CARLISLE on 01-05-2023 Calcium oxalate crystals LM.HPF (Urine sed) [#/Area] 3+ [HPF] [facility] Barbiturates [Presence] in U rineOrdered By: DELANEY CARLISLE on 06-26-2022 Barbiturates Ql (U) Negative Negative [facility] Benzodiazepines [Presence] i n UrineOrdered By: DELANEY CARLISLE on 06-26-2022 Benzodiazepines Ql (U) Negative Negative [facility] Bilirubin Test strip Ql (U)O rdered By: DELANEY CARLISLE on 06-26-2022 Bilirubin Ql (U) 1+ Negative [facility] Color Auto (U)Ordered By: VLAD CARLISLE on 06-26-2022 Color (U) Dark yellow Yellow [facility] fibronectinOrdered By: DELANEY CARLISLE on 06-26-2022 Fibronectin. (Vag fld) [Mass/Vol] Negative Negative [facility] Ketones Auto test strip (U) [Mass/Vol]Ordered By: DELANEY CARLISLE on 06-26-2022 Ketones (U) [Mass/Vol] 1+ Negative [facility] Laboratory - Drug toxicology Ordered By: DELANEY CARLISLE on 06-26-2022 Opiates Ql (U) Negative Negative [facility] Nitrite Test strip Ql (U)Ord ered By: DELANEY CARLISLE on 06-26-2022 Nitrite Ql (U) Negative Negative [facility] No Panel InformationOrdered By: DELANEY CARLISLE on 06-26-2022 Membranes Rupture (PAMG-1) Negative Negative [facility] Phencyclidine Screen Ql (U)O rdered By: DELANEY CARLISLE on 06-26-2022 Phencyclidine Ql (U) Negative Negative [facility] Comment on above: These are unconfirme d results and should not be used for legal purposes. Drug Cut-Off Concentration: AMPH 1000 ng/mL BOO 200 ng/mL HELGA 200 ng/mL COCM 300 ng/mL OP 300 ng/mL PCP 25 ng/mL Protein Auto test strip (U) [Mass/Vol]Ordered By: DELANEY CARLISLE on 06-26-2022 Protein (U) [Mass/Vol] 30 mg/dL Negative [facility] Specific gravity Auto test s trip (U) [Rel density]Ordered By: DELANEY CARLISLE on 06-26-2022 Specific gravity (U) [Rel density] 1.029 1.001-1.030 [facility] Squamous epithelial cells de tection in urine sediment by light microscopyOrdered By: DELANEY CARLISLE on 06-26-2022 Epithelial cells.squamous LM Ql (Urine sed) 5-9 [HPF] 0-2 [facility] Urine bacteria detection by automated methodOrdered By: DELANEY CARLISLE on 06-26-2022 Bacteria Auto Ql (U) None seen None Seen [facility] Urine clarity by refractomet ry automatedOrdered By: DELANEY CARLISLE on 06-26-2022 Clarity Refractometry automated (U) Turbid Clear [facility] Urine cocaine detectionOrder ed By: DELANEY CARLISLE on 06-26-2022 Cocaine Ql (U) Negative Negative [facility] Urine culture routineOrdered By: DELANEY CARLISLE on 06-26-2022 Bacteria identified Cx Nom (U) Cinthya albicans [facility] Urine glucose measurement by automated test strip (mass/volume)Ordered By: DELANEY CARLISLE on 06-26-2022 Glucose Auto test strip (U) [Mass/Vol] Normal mg/dL Normal [facility] Urine hemoglobin detection b y automated test stripOrdered By: DELANEY CARLISLE on 06-26-2022 Hemoglobin Auto test strip Ql (U) Negative Negative [facility] Urine leukocyte esterase det ection by automated test stripOrdered By: DELANEY CARLISLE on 06-26-2022 Leukocyte esterase Auto test strip Ql (U) 3+ Negative [facility] Urine sediment crystal ident ification by light microscopyOrdered By: DELANEY CARLISLE on 06-26-2022 Crystals LM Nom (Urine sed) None seen [HPF] [facility] Urobilinogen Auto test strip (U) [Mass/Vol]Ordered By: DELANEY CARLISLE on 06-26-2022 Urobilinogen (U) [Mass/Vol] Normal mg/dL Normal [facility] Yeast detection in urine sed iment by light microscopyOrdered By: DELANEY CARLISLE on 06-26-2022 Yeast LM Ql (Urine sed) 2+ [HPF] None Seen [facility] pH Auto test strip (U)Ordere d By: DELANEY CARLISLE on 06-26-2022 pH (U) 5.5 [pH] 5.0-9.0 [facility] Automated erythrocytes count in urine sediment (number/area)Ordered By: Michael Cerda on 06-25-2022 RBC Auto (Urine sed) [#/Area] 3-4 [HPF] 0-4 [facility] Automated leukocytes count i n urine sediment (number/area)Ordered By: Michael Cerda on 06-25-2022 WBC Auto (Urine sed) [#/Area] Innumerable [HPF] 0-4 [facility] Basophils Auto (Bld) [#/Vol] Ordered By: PROVIDER TEMP on 06-25-2022 Basophils (Bld) [#/Vol] 0.0 10*3/uL 0.0-0.2 [facility] Basophils/100 WBC Auto (Bld) Ordered By: PROVIDER TEMP on 06-25-2022 Basophils/100 WBC (Bld) 0.1 % . [facility] Bilirubin Test strip Ql (U)O rdered By: Michael Cerda on 06-25-2022 Bilirubin Ql (U) Negative Negative [facility] Body fluid albumin measureme nt (mass/volume)Ordered By: PROVIDER TEMP on 06-25-2022 Albumin (Body fld) [Mass/Vol] 2.7 g/dL 3.2-5.5 [facility] Casts typing in urine sedime nt by light microscopyOrdered By: Michael Cerda on 06-25-2022 Casts LM Nom (Urine sed) None seen [LPF] None Seen [facility] Color Auto (U)Ordered By: Lorene Cerda on 06-25-2022 Color (U) Yellow Yellow [facility] Creatinine and Glomerular fi ltration rate.predicted panel (S/P/Bld)Ordered By: PROVIDER TEMP on 06-25-2022 Creatinine [Mass/Vol] 0.64 mg/dL 0.44-1.03 [facility] Eosinophils Auto (Bld) [#/Vo l]Ordered By: PROVIDER TEMP on 06-25-2022 Eosinophils (Bld) [#/Vol] 0.1 10*3/uL 0.0-0.45 [facility] Eosinophils/100 WBC Auto (Bl d)Ordered By: PROVIDER TEMP on 06-25-2022 Eosinophils/100 WBC (Bld) 0.7 % . [facility] Erythrocyte distribution wid th Auto (RBC) [Ratio]Ordered By: PROVIDER TEMP on 06-25-2022 Erythrocyte distribution width (RBC) [Ratio] 16.1 % 11.9-15.3 [facility] Estimated glomerular filtrat ion rate (GFR) non- AmericanOrdered By: PROVIDER TEMP on 06-25-2022 GFR/1.73 sq M.predicted among non-blacks MDRD (S/P/Bld) [Vol rate/Area] > 60 mL/Min [facility] Globulin Calc (S) [Mass/Vol] Ordered By: PROVIDER TEMP on 06-25-2022 Globulin (S) [Mass/Vol] 3.3 g/dL [facility] Hematocrit Auto (Bld) [Volum e fraction]Ordered By: PROVIDER TEMP on 06-25-2022 Hematocrit (Bld) [Volume fraction] 29.0 % 34.0-46.4 [facility] Hemoglobin [Mass/volume] in BloodOrdered By: PROVIDER TEMP on 06-25-2022 Hemoglobin (Bld) [Mass/Vol] 9.9 g/dL 11.8-15.4 [facility] Ketones Auto test strip (U) [Mass/Vol]Ordered By: Michael Cerda on 06-25-2022 Ketones (U) [Mass/Vol] 4+ Negative [facility] - UrinalysisOrder ed By: Michael Cerda on 06-25-2022 Hyaline casts LM Ql (Urine sed) 0-1 [LPF] 0-8 [facility] Leukocytes [#/volume] correc nneka for nucleated erythrocytes in Blood by Automated counOrdered By: PROVIDER TEMP on 06-25-2022 WBC corrected for nucl RBC Auto (Bld) [#/Vol] 10.5 10*3/uL 3.8-11.6 [facility] Lymphocytes Auto (Bld) [#/Vo l]Ordered By: PROVIDER TEMP on 06-25-2022 Lymphocytes (Bld) [#/Vol] 1.8 10*3/uL 1.00-4.8 [facility] Lymphocytes/100 WBC Auto (Bl d)Ordered By: PROVIDER TEMP on 06-25-2022 Lymphocytes/100 WBC (Bld) 16.7 % . [facility] MCH Auto (RBC) [Entitic mass ]Ordered By: PROVIDER TEMP on 06-25-2022 MCH (RBC) [Entitic mass] 31.6 pg 24.7-34.3 [facility] MCHC Auto (RBC) [Mass/Vol]Or dered By: PROVIDER TEMP on 06-25-2022 MCHC (RBC) [Mass/Vol] 34.2 g/dL 32.0-35.0 [facility] MCV Auto (RBC) [Entitic vol] Ordered By: PROVIDER TEMP on 06-25-2022 MCV (RBC) [Entitic vol] 92.4 fL 80-100 [facility] Monocyte distribution width [Entitic volume] in Blood by AutomatedOrdered By: PROVIDER TEMP on 06-25-2022 Monocyte distribution width Auto (Bld) [Entitic vol] 18.74 % 0.00-20.00 [facility] Monocytes Auto (Bld) [#/Vol] Ordered By: PROVIDER TEMP on 06-25-2022 Monocytes (Bld) [#/Vol] 0.8 10*3/uL 0.0-0.8 [facility] Monocytes/100 WBC Auto (Bld) Ordered By: PROVIDER TEMP on 06-25-2022 Monocytes/100 WBC (Bld) 7.5 % . [facility] Neutrophils Auto (Bld) [#/Vo l]Ordered By: PROVIDER TEMP on 06-25-2022 Neutrophils (Bld) [#/Vol] 7.9 10*3/uL 1.8-7.7 [facility] Neutrophils/100 WBC Auto (Bl d)Ordered By: PROVIDER TEMP on 06-25-2022 Neutrophils/100 WBC (Bld) 75.0 % . [facility] Nitrite Test strip Ql (U)Ord ered By: Michael eCrda on 06-25-2022 Nitrite Ql (U) Negative Negative [facility] No Panel InformationOrdered By: PROVIDER TEMP on 06-25-2022 Estimated GFR () > 60 mL/Min [facility] Comment on above: GFR estimated refere nce range: According to KDOQI guidelines, <60 ml/min/1.73m2 is sufficient to diagnose a patient with chronic kidney disease. Pharmacy Creatinine Clearance (Chem 153.48 [facility] Nucleated erythrocytes [Pres ence] in Blood by Automated countOrdered By: PROVIDER TEMP on 06-25-2022 Nucleated RBC Auto Ql (Bld) 0.3 /100{WBC} 0-0.5 [facility] Platelet mean volume Auto (B ld) [Entitic vol]Ordered By: PROVIDER TEMP on 06-25-2022 Platelet mean volume (Bld) [Entitic vol] 7.8 fL 6.3-10.7 [facility] Platelets Auto (Bld) [#/Vol] Ordered By: PROVIDER TEMP on 06-25-2022 Platelets (Bld) [#/Vol] 182 10*3/uL 150-450 [facility] Protein Auto test strip (U) [Mass/Vol]Ordered By: Michael Cerda on 06-25-2022 Protein (U) [Mass/Vol] Trace mg/dL Negative [facility] Protein [Mass/volume] in Ser um or PlasmaOrdered By: PROVIDER TEMP on 06-25-2022 Protein [Mass/Vol] 6.0 g/dL 6.1-7.9 [facility] RBC Auto (Bld) [#/Vol]Ordere d By: PROVIDER TEMP on 06-25-2022 RBC (Bld) [#/Vol] 3.14 10*6/uL 3.60-5.[address] [facility] Serum or plasma alanine cox otransferase measurement without P-5'-P (enzymatic activiOrdered By: PROVIDER TEMP on 06-25-2022 ALT No additional P-5'-P [Catalytic activity/Vol] 10 U/L 10-60 [facility] Serum or plasma albumin/glob ulin mass ratioOrdered By: PROVIDER TEMP on 06-25-2022 Albumin/Globulin [Mass ratio] 0.8 {ratio} [facility] Serum or plasma alkaline sam sphatase measurement (enzymatic activity/volume)Ordered By: PROVIDER TEMP on 06-25-2022 ALP [Catalytic activity/Vol] 77 U/L 32-92 [facility] Serum or plasma anion gap de terminationOrdered By: PROVIDER TEMP on 06-25-2022 Anion gap [Moles/Vol] 15.1 mmol/L 6.0-15.0 [facility] Serum or plasma aspartate am inotransferase measurement (enzymatic activity/volume)Ordered By: PROVIDER TEMP on 06-25-2022 AST [Catalytic activity/Vol] 20 U/L 10-42 [facility] Serum or plasma calcium katie urement (mass/volume)Ordered By: PROVIDER TEMP on 06-25-2022 Calcium [Mass/Vol] 9.3 mg/dL 8.2-10.2 [facility] Serum or plasma chloride victorino surement (moles/volume)Ordered By: PROVIDER TEMP on 06-25-2022 Chloride [Moles/Vol] 107 mmol/L 95-114 [facility] Serum or plasma glucose katie urement (mass/volume)Ordered By: PROVIDER TEMP on 06-25-2022 Glucose [Mass/Vol] 72 mg/dL 70-100 [facility] Comment on above: ADA recommended refe rence rangeRandom Glucose Reference Range is dependent on time and content of last meal. Glucose of more than 200 mg/dL in a nonstressed, ambulatory subject supports the diagnosis of Diabetes Mellitus. Serum or plasma potassium me asurement (moles/volume)Ordered By: PROVIDER TEMP on 06-25-2022 Potassium [Moles/Vol] 3.6 mmol/L 3.5-5.1 [facility] Serum or plasma sodium measu rement (moles/volume)Ordered By: PROVIDER TEMP on 06-25-2022 Sodium [Moles/Vol] 137 mmol/L 136-146 [facility] Serum or plasma total biliru bin measurement (mass/volume)Ordered By: PROVIDER TEMP on 06-25-2022 Bilirubin [Mass/Vol] 0.7 mg/dL 0.3-1.2 [facility] Serum or plasma total carbon dioxide measurement (moles/volume)Ordered By: PROVIDER TEMP on 06-25-2022 CO2 [Moles/Vol] 18.5 mmol/L 22.0-30.[address] [facility] Serum or plasma urea nitroge n measurement (mass/volume)Ordered By: PROVIDER TEMP on 06-25-2022 Urea nitrogen [Mass/Vol] 3 mg/dL 9-23 [facility] Specific gravity Auto test s trip (U) [Rel density]Ordered By: Michael Cerda on 06-25-2022 Specific gravity (U) [Rel density] 1.016 1.001-1.030 [facility] Squamous epithelial cells de tection in urine sediment by light microscopyOrdered By: Michael Cerda on 06-25-2022 Epithelial cells.squamous LM Ql (Urine sed) 10-19 [HPF] 0-2 [facility] Troponin I.cardiac [Mass/vol ume] in Serum or Plasma by High sensitivity methodOrdered By: Michael Cerda on 06-25-2022 Troponin I.cardiac High sensitivity method [Mass/Vol] 6 pg/mL 0-15 [facility] Urine bacteria detection by automated methodOrdered By: Michael Cerda on 06-25-2022 Bacteria Auto Ql (U) 1+ None Seen [facility] Urine clarity by refractomet ry automatedOrdered By: Michael Cerda on 06-25-2022 Clarity Refractometry automated (U) Turbid Clear [facility] Urine culture routineOrdered By: Michael Cerda on 06-25-2022 Bacteria identified Cx Nom (U) 2 Days [facility] Urine glucose measurement by automated test strip (mass/volume)Ordered By: Michael Cerda on 06-25-2022 Glucose Auto test strip (U) [Mass/Vol] Normal mg/dL Normal [facility] Urine hemoglobin detection b y automated test stripOrdered By: Michael Cerda on 06-25-2022 Hemoglobin Auto test strip Ql (U) Trace Negative [facility] Urine leukocyte esterase det ection by automated test stripOrdered By: Michael Cerda on 06-25-2022 Leukocyte esterase Auto test strip Ql (U) 4+ Negative [facility] Urobilinogen Auto test strip (U) [Mass/Vol]Ordered By: Michael Cerda on 06-25-2022 Urobilinogen (U) [Mass/Vol] Normal mg/dL Normal [facility] WBC Auto (Bld) [#/Vol]Ordere d By: PROVIDER TEMP on 06-25-2022 WBC (Bld) [#/Vol] 10.5 10*3/uL 3.8-11.[address] [facility] Yeast detection in urine sed iment by light microscopyOrdered By: Michael Cerda on 06-25-2022 Yeast LM Ql (Urine sed) None seen [HPF] None Seen [facility] pH Auto test strip (U)Ordere d By: Michael Cerda on 06-25-2022 pH (U) 6.0 [pH] 5.0-9.0 [facility] GLUCOSE BLOODon 04-28-2022 Glucose [Mass/Vol] 83 mg/dL Normal 74-106 [facility] Comment on above: Performed By: #### G MINERVA, LIPID #### [facility] [address] [place] [address] Dr. Kinjal Rivers LIPID PROFILEon 04-28-2022 CHOL-HDL RATIO NORM SEE BELOW Normal [facility] Comment on above: Result Comment: 3.3 - 4.4 LOW RISK 4.4 - 7.1 AVERAGE RISK 7.1 - 11.0 MODERATE RISK >11.0 HIGH RISK Performed By: #### G MINERVA, LIPID #### [facility] [address] [address] [address] Kinjal Rivers Cholesterol [Mass/Vol] 232 mg/dL Critically high <=200 [facility] Comment on above: Performed By: #### G MINERVA, LIPID #### [facility] [address] [address] [address] Kinjal Rivers Cholesterol in HDL [Mass/Vol] 92 mg/dL Critically high 40-60 [facility] Comment on above: Performed By: #### G MINERVA, LIPID #### [facility] [address] [address] [address] Kinjal Rivers Cholesterol in LDL [Mass/Vol] 115.2 mg/dL Normal [facility] Comment on above: Performed By: #### G MINERVA, LIPID #### [facility] [address] [address] [address] Kinjal Rivers Cholesterol.total/Chol esterol in HDL [Mass ratio] 2.5 {ratio} Normal [facility] Comment on above: Performed By: #### G MINERVA, LIPID #### [facility] [address] [address] [address] Kinjal Rivers HDL NORMAL > or = 60 mg/dl - LO W CARDIOVASCULAR RISK <40 mg/dl - HIGH CARDIOVASCULAR RISK Normal [facility] Comment on above: Performed By: #### G MINERVA, LIPID #### [facility] [address] [address] [address] Kinjal Rivers LDL CALC NORMAL SEE BELOW Normal [facility] Comment on above: Result Comment: <100 mg/dl OPTIMAL 100 - 129 mg/dl NEAR OR ABOVE OPTIMAL 130 - 159 mg/dl BORDERLINE HIGH 160 - 189 mg/dl HIGH >190 mg/dl VERY HIGH Performed By: #### G MINERVA, LIPID #### [facility] [address] [address] [address] Kinjal Rivers Triglyceride [Mass/Vol] 124 mg/dL Normal <=150 [facility] Comment on above: Performed By: #### G MINERVA, LIPID #### [facility] [address] [address] [address] Kinjal Rivers VLDL CALC 24.8 mg/dL Normal [facility] Comment on above: Performed By: #### G MINERVA, LIPID #### [facility] [id number] Kinjal Rivers Echocardiogramon 02-13-[address], [address] [place] [address] TRANSTHORACIC ECHOCARDIOGRAM REPORT Patient Name: MARICARMEN Glenny Monreal Physician: [id number] Tracee ANDERSON MD Study Date: 02/13/2022 Referring [address] RITA OLIVIA Physician: MRN/PID: [id number] PCP: Viktor Sotelo Accession/Order#: [id number] [facility] Екатерина Location: Date of : 1980 Fellow: Gender: F Nurse: Admit Date: [facility] Director: Georgia Grajeda RDCS, RVT Height: 167.64 cm CC Report to: Weight: 102.97 kg Study Type: Echocardiogram BSA: 2.11 m2 Blood Pressure: 114 /70 mmHg Diagnosis/ICD: I47.1-Supraventricular tachycardia; R06.02-Shortness of breath; I49.5-Sick sinus syndrome Indication: Abnormal EKG-Complete Heart Block, Pacemaker, History of Syncope, Obesity, Seizure Disorder, Pt is 13 weeks Procedure/CPT: Echo Complete w Full [id number] Study Detail: The following Echo studies were [...] 0.8 m/s (0.6-0.9m/s) PV Max P.9 mmHg [id number] Tracee Moore MD Electronically signed on 02/13/2022 at 5:36:08 PM Final Normal [facility] Echocardiography Please click on the link to view the study images Normal [facility] [place] [address] [place] Work Phone: Falls Screening (Age 18+)on 02-13-2022 Fall risk assessment a) No falls within the last year [facility] [place] [address] [place] Work Phone: Urine culture routineOrdered By: Raymond Oconnor on 01-22-2022 Bacteria identified Cx Nom (U) 2 Days [facility] Albumin [Mass/volume] in Ser um or PlasmaOrdered By: Raymond Oconnor on 01-20-2022 Albumin [Mass/Vol] 3.4 g/dL 3.2-5.5 [facility] Automated erythrocytes count in urine sediment (number/area)Ordered By: Raymond Oconnor on 01-20-2022 RBC Auto (Urine sed) [#/Area] 3-4 [HPF] 0-4 [facility] Automated leukocytes count i n urine sediment (number/area)Ordered By: Raymond Oconnor on 01-20-2022 WBC Auto (Urine sed) [#/Area] 20-49 [HPF] 0-4 [facility] Automated urine sediment claudia cium oxalate crystal count by microscopy (number/high powOrdered By: Raymond Oconnor on 01-20-2022 Calcium oxalate crystals LM.HPF (Urine sed) [#/Area] 4+ [HPF] [facility] Basophils Auto (Bld) [#/Vol] Ordered By: Raymond Oconnor on 01-20-2022 Basophils (Bld) [#/Vol] 0.0 10*3/uL 0.0-0.2 [facility] Basophils/100 WBC Auto (Bld) Ordered By: Raymond Oconnor on 01-20-2022 Basophils/100 WBC (Bld) 0.4 % . [facility] Bilirubin Auto test strip Ql (U)Ordered By: Raymond Oconnor on 01-20-2022 Bilirubin Ql (U) Negative Negative [facility] Blood hemoglobin measurement (mass/volume)Ordered By: Raymond Oconnor on 01-20-2022 Hemoglobin (Bld) [Mass/Vol] 10.6 g/dL 11.8-15.4 [facility] Blood leukocytes automated c ount (number/volume)Ordered By: Raymond Oconnor on 01-20-2022 WBC (Bld) [#/Vol] 6.8 10*3/uL 4.5-11.0 [facility] Creatinine and Glomerular fi ltration rate.predicted panel (S/P/Bld)Ordered By: Raymond Oconnor on 01-20-2022 Creatinine [Mass/Vol] 0.62 mg/dL 0.44-1.03 [facility] Eosinophils Auto (Bld) [#/Vo l]Ordered By: Raymond Oconnor on 01-20-2022 Eosinophils (Bld) [#/Vol] 0.1 10*3/uL 0.0-0.45 [facility] Eosinophils/100 WBC Auto (Bl d)Ordered By: Raymond Oconnor on 01-20-2022 Eosinophils/100 WBC (Bld) 1.5 % . [facility] Erythrocyte distribution wid th Auto (RBC) [Ratio]Ordered By: Raymond Oconnor on 01-20-2022 Erythrocyte distribution width (RBC) [Ratio] 18.2 % 11.9-15.3 [facility] Estimated glomerular filtrat ion rate (GFR) non- AmericanOrdered By: Raymond Oconnor on 01-20-2022 GFR/1.73 sq M.predicted among non-blacks MDRD (S/P/Bld) [Vol rate/Area] > 60 mL/Min [facility] Globulin Calc (S) [Mass/Vol] Ordered By: Raymond Oconnor on 01-20-2022 Globulin (S) [Mass/Vol] 3.1 g/dL [facility] Hematocrit Auto (Bld) [Volum e fraction]Ordered By: Raymond Oconnor on 01-20-2022 Hematocrit (Bld) [Volume fraction] 33.6 % 34.0-46.4 [facility] Ketones Auto test strip (U) [Mass/Vol]Ordered By: Raymond Oconnor on 01-20-2022 Ketones (U) [Mass/Vol] Negative Negative [facility] - Hematology and Cell countsOrdered By: Raymond Oconnor on 01-20-2022 Nucleated RBC/100 WBC (Bld) [Ratio] 0.0 % 0-0.5 [facility] Laboratory - UrinalysisOrder ed By: Raymond Oconnor on 01-20-2022 Hyaline casts LM Ql (Urine sed) 0-8 [LPF] 0-8 [facility] Lymphocytes Auto (Bld) [#/Vo l]Ordered By: Raymond Oconnor on 01-20-2022 Lymphocytes (Bld) [#/Vol] 1.3 10*3/uL 1.00-4.8 [facility] Lymphocytes/100 WBC Auto (Bl d)Ordered By: Raymond Oconnor on 01-20-2022 Lymphocytes/100 WBC (Bld) 19.1 % . [facility] MCH Auto (RBC) [Entitic mass ]Ordered By: Raymond Oconnor on 01-20-2022 MCH (RBC) [Entitic mass] 26.9 pg 24.7-34.3 [facility] MCHC Auto (RBC) [Mass/Vol]Or dered By: Raymond Oconnor on 01-20-2022 MCHC (RBC) [Mass/Vol] 31.7 g/dL 32.0-35.0 [facility] MCV Auto (RBC) [Entitic vol] Ordered By: Raymond Oconnor on 01-20-2022 MCV (RBC) [Entitic vol] 84.8 fL 80-100 [facility] Monocytes Auto (Bld) [#/Vol] Ordered By: Raymond Oconnor on 01-20-2022 Monocytes (Bld) [#/Vol] 0.4 10*3/uL 0.0-0.8 [facility] Monocytes/100 WBC Auto (Bld) Ordered By: Raymond Oconnor on 01-20-2022 Monocytes/100 WBC (Bld) 6.6 % . [facility] Neutrophils Auto (Bld) [#/Vo l]Ordered By: Raymond Oconnor on 01-20-2022 Neutrophils (Bld) [#/Vol] 4.9 10*3/uL 1.8-7.7 [facility] Neutrophils/100 WBC Auto (Bl d)Ordered By: Raymond Oconnor on 01-20-2022 Neutrophils/100 WBC (Bld) 72.4 % . [facility] No Panel InformationOrdered By: Raymond cOonnor on 01-20-2022 Estimated GFR () > 60 mL/Min [facility] Comment on above: GFR estimated refere nce range: According to KDOQI guidelines, <60 ml/min/1.73m2 is sufficient to diagnose a patient with chronic kidney disease. Pharmacy Creatinine Clearance (Chem 147.20 [facility] Platelet mean volume Auto (B ld) [Entitic vol]Ordered By: Raymond Oconnor on 01-20-2022 Platelet mean volume (Bld) [Entitic vol] 8.1 fL 6.3-10.7 [facility] Platelets Auto (Bld) [#/Vol] Ordered By: Raymond Oconnor on 01-20-2022 Platelets (Bld) [#/Vol] 214 10*3/uL 150-450 [facility] Protein Auto test strip (U) [Mass/Vol]Ordered By: Raymond Oconnor on 01-20-2022 Protein (U) [Mass/Vol] Negative Negative [facility] Protein [Mass/volume] in Ser um or PlasmaOrdered By: Raymond Oconnor on 01-20-2022 Protein [Mass/Vol] 6.5 g/dL 6.1-7.9 [facility] RBC Auto (Bld) [#/Vol]Ordere d By: Raymond Oconnor on 01-20-2022 RBC (Bld) [#/Vol] 3.95 10*6/uL 3.60-5.[address] [facility] Serum or plasma alanine cox otransferase measurement without P-5'-P (enzymatic activiOrdered By: Raymond Oconnor on 01-20-2022 ALT No additional P-5'-P [Catalytic activity/Vol] 10 U/L 10-60 [facility] Serum or plasma albumin/glob ulin mass ratioOrdered By: Raymond Oconnor on 01-20-2022 Albumin/Globulin [Mass ratio] 1.1 {ratio} [facility] Serum or plasma alkaline sam sphatase measurement (enzymatic activity/volume)Ordered By: Raymond Oconnor on 01-20-2022 ALP [Catalytic activity/Vol] 51 U/L 32-92 [facility] Serum or plasma aspartate am inotransferase measurement (enzymatic activity/volume)Ordered By: Raymond Oconnor on 01-20-2022 AST [Catalytic activity/Vol] 16 U/L 10-42 [facility] Serum or plasma calcium katie urement (mass/volume)Ordered By: Raymond Oconnor on 01-20-2022 Calcium [Mass/Vol] 9.4 mg/dL 8.2-10.2 [facility] Serum or plasma chloride victorino surement (moles/volume)Ordered By: Raymond Oconnor on 01-20-2022 Chloride [Moles/Vol] 103 mmol/L 95-114 [facility] Serum or plasma glucose katie urement (mass/volume)Ordered By: Raymond Oconnor on 01-20-2022 Glucose [Mass/Vol] 82 mg/dL 70-100 [facility] Comment on above: ADA recommended refe rence range Random Glucose Reference Range is dependent on time and content of last meal. Glucose of more than 200 mg/dL in a nonstressed, ambulatory subject supports the diagnosis of Diabetes Mellitus. Serum or plasma potassium me asurement (moles/volume)Ordered By: Raymond Oconnor on 01-20-2022 Potassium [Moles/Vol] 4.0 mmol/L 3.5-5.1 [facility] Serum or plasma sodium measu rement (moles/volume)Ordered By: Raymond Oconnor on 01-20-2022 Sodium [Moles/Vol] 134 mmol/L 136-146 [facility] Serum or plasma total biliru bin measurement (mass/volume)Ordered By: Raymond Oconnor on 01-20-2022 Bilirubin [Mass/Vol] 0.7 mg/dL 0.3-1.2 [facility] Serum or plasma total carbon dioxide measurement (moles/volume)Ordered By: Raymond Oconnor on 01-20-2022 CO2 [Moles/Vol] 19.6 mmol/L 22.0-30.[address] [facility] Serum or plasma urea nitroge n measurement (mass/volume)Ordered By: Raymond Oconnor on 01-20-2022 Urea nitrogen [Mass/Vol] 8 mg/dL 9-23 [facility] Squamous epithelial cells de tection in urine sediment by light microscopyOrdered By: Raymond Oconnor on 01-20-2022 Epithelial cells.squamous LM Ql (Urine sed) 0-1 [HPF] 0-2 [facility] Urine appearanceOrdered By: Raymond Oconnor on 01-20-2022 Appearance (U) Clear Clear [facility] Urine bacteria detection by automated methodOrdered By: Raymond Oconnor on 01-20-2022 Bacteria Auto Ql (U) None seen None Seen [facility] Urine colorOrdered By: Chela Oconnor on 01-20-2022 Color (U) Yellow Yellow [facility] Urine glucose measurement by automated test strip (mass/volume)Ordered By: Raymond Oconnor on 01-20-2022 Glucose Auto test strip (U) [Mass/Vol] Normal mg/dL Normal [facility] Urine hemoglobin detection b y automated test stripOrdered By: Raymond Oconnor on 01-20-2022 Hemoglobin Auto test strip Ql (U) Negative Negative [facility] Urine leukocyte esterase det ection by automated test stripOrdered By: Raymond Oconnor on 01-20-2022 Leukocyte esterase Auto test strip Ql (U) 2+ Negative [facility] Urine nitrite detection by a utomated test stripOrdered By: Raymond Oconnor on 01-20-2022 Nitrite Auto test strip Ql (U) Negative Negative [facility] Urine sediment crystal ident ification by light microscopyOrdered By: Raymond Oconnor on 01-20-2022 Crystals LM Nom (Urine sed) None seen [HPF] [facility] Urobilinogen Auto test strip (U) [Mass/Vol]Ordered By: Raymond Oconnor on 01-20-2022 Urobilinogen (U) [Mass/Vol] Normal mg/dL Normal [facility] pH Auto test strip (U)Ordere d By: Raymond Oconnor on 01-20-2022 pH (U) 1.030 [pH] 1.001-1.030 [facility] pH (U) 6.0 [pH] 5.0-9.0 [facility] Tobacco Screening.on 022 Fall risk assessment a) No falls within the last year -[facility] [address] Work Phone: Tobacco use status [facility] b) No -[facility] [address] Work Phone: Tobacco Screening. Yes [facility] [address] Work Phone: Serum or plasma beta choriog onadotropin measurement (units/volume)Ordered By: Eduardo Swain on 12-16-2021 HCG.beta subunit Qn 3876.00 m[IU]/mL [facility] Comment on above: Approximate Approxim ate hCG Gestational Age Range (mIU/ml) (weeks) 0.2-1 5-50 1-2 50-500 2-3 100-5,000 3-4 500-10,000 4-5 1,000-50,000 5-6 10,000-100,000 6-8 15,000-200,000 8-12 10,000-100,000 Cholesterol [Mass/volume] in Serum or PlasmaOrdered By: Eduardo Swain on 12-11-2021 Cholesterol [Mass/Vol] 190 mg/dL 140-200 [facility] Comment on above: Chol less than 200 m g/dl low risk Chol 201-239 mg/dl borderline risk Chol 240 mg/dl and greater high risk Cholesterol in LDL Calc [Mas s/Vol]Ordered By: Eduardo Swain on 12-11-2021 Cholesterol in LDL [Mass/Vol] 103 mg/dL 0-100 [facility] Comment on above: LDL ATP III CLASSIFI CATION LDL less than 100 mg/dL Optimal LDL 100-129 mg/dL Near or above optimal LDL 130-159 mg/dL Borderline high LDL 160-189 mg/dL High LDL greater than 189 mg/dL Very high Cholesterol in VLDL Calc [Ma ss/Vol]Ordered By: Eduardo Swain on 12-11-2021 Cholesterol in VLDL [Mass/Vol] 9 mg/dL [facility] No Panel InformationOrdered By: Eduardo Swain on 12-11-2021 25-Hydroxy Vitamin D Total 40.6 ng/mL 30-100 [facility] Comment on above: VITAMIN D STATUS [...] Cholesterol in HDL [Mass/Vol] 78 mg/dL 35-85 [facility] Comment on above: HDL CHOL ATP-III CLA SSIFICATION Cardiovascular Risk HDL > or equal to 60 mg/dL LOW HDL < 40 mg/dL HIGH Serum or plasma total choles terol/high density lipoprotein (HDL) cholesterol mass ratOrdered By: Eduardo Swain on 12-11-2021 Cholesterol.total/Chol esterol in HDL [Mass ratio] 2.4 {ratio} <5.0 [facility] TSH DL <= 0.005 mIU/L QnOrde red By: Eduardo Swain on 12-11-2021 TSH Qn 2.40 m[IU]/L 0.45-5.33 [facility] Triglyceride [Mass/volume] i n Serum or PlasmaOrdered By: Eduardo Swain on 12-11-2021 Triglyceride [Mass/Vol] 47 mg/dL 35-149 [facility] Comment on above: TRIG ATP III CLASSIF ICATION TRIG less than 150 mg/dL Normal TRIG 150-199 mg/dL Borderline high TRIG 200-500 mg/dL High TRIG greater than 500 mg/dL Very high Standard traceable to the Center for Disease Conrtrol and Prevention (CDC) test method. Serum or plasma beta choriog onadotropin measurement (units/volume)Ordered By: Eduardo Swain on 12-10-2021 HCG.beta subunit Qn 315.21 m[IU]/mL [facility] Comment on above: Approximate Approxim ate hCG Gestational Age Range (mIU/ml) (weeks) 0.2-1 5-50 1-2 50-500 2-3 100-5,000 3-4 500-10,000 4-5 1,000-50,000 5-6 10,000-100,000 6-8 15,000-200,000 8-12 10,000-100,000 Urine culture routineOrdered By: Cornell Mcnair on 12-10-2021 Bacteria identified Cx Nom (U) Strep. agalactiae Grp B [facility] Amphetamine Screen Ql (U)Ord ered By: Cornell Mcnair on 12-08-2021 Amphetamines Ql (U) Negative Negative [facility] Automated erythrocytes count in urine sediment (number/area)Ordered By: Cornell Mcnair on 12-08-2021 RBC Auto (Urine sed) [#/Area] 10-19 [HPF] 0-4 [facility] Automated leukocytes count i n urine sediment (number/area)Ordered By: Cornell Mcnair on 12-08-2021 WBC Auto (Urine sed) [#/Area] 50-100 [HPF] 0-4 [facility] Automated urine hyaline cast s count (number/volume)Ordered By: Cornell Mcnair on 12-08-2021 Hyaline casts Auto (U) [#/Vol] 0-1 [LPF] 0-1 [facility] Automated urine sediment claudia cium oxalate crystal count by microscopy (number/high powOrdered By: Cornell Mcnair on 12-08-2021 Calcium oxalate crystals LM.HPF (Urine sed) [#/Area] 3+ [HPF] [facility] Barbiturates [Presence] in U rineOrdered By: Cornell Mcnair on 12-08-2021 Barbiturates Ql (U) Negative Negative [facility] Basophils Auto (Bld) [#/Vol] Ordered By: Cornell Mcnair on 12-08-2021 Basophils (Bld) [#/Vol] 0.0 10*3/uL 0.0-0.2 [facility] Basophils/100 WBC Auto (Bld) Ordered By: Cornell Mcnair on 12-08-2021 Basophils/100 WBC (Bld) 0.6 % . [facility] Benzodiazepines [Presence] i n UrineOrdered By: Cornell Mcnair on 12-08-2021 Benzodiazepines Ql (U) Negative Negative [facility] Bilirubin Test strip Ql (U)O rdered By: Cornell Mcnair on 12-08-2021 Bilirubin Ql (U) Negative Negative [facility] Blood hemoglobin measurement (mass/volume)Ordered By: Cornell Mncair on 12-08-2021 Hemoglobin (Bld) [Mass/Vol] 9.6 g/dL 11.8-15.4 [facility] Blood leukocytes automated c ount (number/volume)Ordered By: Cornell Mcnair on 12-08-2021 WBC (Bld) [#/Vol] 6.9 10*3/uL 4.5-11.0 [facility] Body fluid albumin measureme nt (mass/volume)Ordered By: Cornell Mcnair on 12-08-2021 Albumin (Body fld) [Mass/Vol] 3.4 g/dL 3.2-5.5 [facility] COVID-19 SOFIAOrdered By: Julia Mcnair on 12-08-2021 SARS-CoV+SARS-CoV-2 (COVID-19) Ag IA.rapid Ql (Resp) Negative Negative [facility] Comment on above: This is a duplicate [place] SARS Antigen (DIEUDONNE) result to be used for statistical tracking purpose only. Cannabinoids [Presence] in U rine by Screen methodOrdered By: Cornell Mcnair on 12-08-2021 Cannabinoids Screen Ql (U) Negative Negative [facility] Comment on above: These are unconfirme [...] (Urine sed) None seen [LPF] None Seen [facility] Color Auto (U)Ordered By: Julia Mcnair on 12-08-2021 Color (U) Yellow Yellow [facility] Creatinine and Glomerular fi ltration rate.predicted panel (S/P/Bld)Ordered By: Cornell Mcnair on 12-08-2021 Creatinine [Mass/Vol] 0.78 mg/dL 0.44-1.03 [facility] Eosinophils Auto (Bld) [#/Vo l]Ordered By: Cornell Mcnair on 12-08-2021 Eosinophils (Bld) [#/Vol] 0.2 10*3/uL 0.0-0.45 [facility] Eosinophils/100 WBC Auto (Bl d)Ordered By: Cornell Mcnair on 12-08-2021 Eosinophils/100 WBC (Bld) 2.6 % . [facility] Erythrocyte distribution wid th Auto (RBC) [Ratio]Ordered By: Cornell Mcnair on 12-08-2021 Erythrocyte distribution width (RBC) [Ratio] 15.5 % 11.9-15.3 [facility] Estimated glomerular filtrat ion rate (GFR) non- AmericanOrdered By: Cornell Mcnair on 12-08-2021 GFR/1.73 sq M.predicted among non-blacks MDRD (S/P/Bld) [Vol rate/Area] > 60 mL/Min [facility] Globulin Calc (S) [Mass/Vol] Ordered By: Cornell Mcnair on 12-08-2021 Globulin (S) [Mass/Vol] 3.1 g/dL [facility] HCG ( test) IA.rapi d Ql (U)Ordered By: Cornell Mcnair on 12-08-2021 HCG ( test) Ql (U) Positive [facility] Hematocrit Auto (Bld) [Volum e fraction]Ordered By: Cornell Mcnair on 12-08-2021 Hematocrit (Bld) [Volume fraction] 30.1 % 34.0-46.4 [facility] Ketones Auto test strip (U) [Mass/Vol]Ordered By: Cornell Mcnair on 12-08-2021 Ketones (U) [Mass/Vol] Trace Negative [facility] - Drug toxicology Ordered By: Cornell Mcnair on 12-08-2021 Opiates Ql (U) Negative Negative [facility] Laboratory - Hematology and Cell countsOrdered By: Cornell Mcnair on 12-08-2021 Nucleated RBC/100 WBC (Bld) [Ratio] 0.0 % 0-0.5 [facility] Lymphocytes Auto (Bld) [#/Vo l]Ordered By: Cornell Mcnair on 12-08-2021 Lymphocytes (Bld) [#/Vol] 1.5 10*3/uL 1.00-4.8 [facility] Lymphocytes/100 WBC Auto (Bl d)Ordered By: Cornell Mcnair on 12-08-2021 Lymphocytes/100 WBC (Bld) 22.3 % . [facility] MCH Auto (RBC) [Entitic mass ]Ordered By: Cornell Mcnair on 12-08-2021 MCH (RBC) [Entitic mass] 26.3 pg 24.7-34.3 [facility] MCHC Auto (RBC) [Mass/Vol]Or dered By: Cornell Mcnair on 12-08-2021 MCHC (RBC) [Mass/Vol] 32.0 g/dL 32.0-35.0 [facility] MCV Auto (RBC) [Entitic vol] Ordered By: Cornell Mcnair on 12-08-2021 MCV (RBC) [Entitic vol] 82.4 fL 80-100 [facility] Monocytes Auto (Bld) [#/Vol] Ordered By: Cornell Mcnair on 12-08-2021 Monocytes (Bld) [#/Vol] 0.4 10*3/uL 0.0-0.8 [facility] Monocytes/100 WBC Auto (Bld) Ordered By: Cornell Mcnair on 12-08-2021 Monocytes/100 WBC (Bld) 6.5 % . [facility] Mucus LM Ql (Urine sed)Order ed By: Cornell Mcnair on 12-08-2021 Mucus Ql (Urine sed) 2+ [LPF] [facility] Neutrophils Auto (Bld) [#/Vo l]Ordered By: Cornell Mcnair on 12-08-2021 Neutrophils (Bld) [#/Vol] 4.7 10*3/uL 1.8-7.7 [facility] Neutrophils/100 WBC Auto (Bl d)Ordered By: Cornell Mcnair on 12-08-2021 Neutrophils/100 WBC (Bld) 68.0 % . [facility] Nitrite Test strip Ql (U)Ord ered By: Cornell Mcnair on 12-08-2021 Nitrite Ql (U) Negative Negative [facility] No Panel InformationOrdered By: Cornell Mcnair on 12-08-2021 Estimated GFR () > 60 mL/Min [facility] Comment on above: GFR estimated refere nce range: According to KDOQI guidelines, <60 ml/min/1.73m2 is sufficient to diagnose a patient with chronic kidney disease. Pharmacy Creatinine Clearance (Chem 115.38 [facility] SARS Antigen (LFIA) [facility] Phencyclidine Screen Ql (U)O rdered By: Cornell Mcnair on 12-08-2021 Phencyclidine Ql (U) Negative Negative [facility] Platelet mean volume Auto (B ld) [Entitic vol]Ordered By: Cornell Mcnair on 12-08-2021 Platelet mean volume (Bld) [Entitic vol] 7.2 fL 6.3-10.7 [facility] Platelets Auto (Bld) [#/Vol] Ordered By: Cornell Mcnair on 12-08-2021 Platelets (Bld) [#/Vol] 229 10*3/uL 150-450 [facility] Protein Auto test strip (U) [Mass/Vol]Ordered By: Cornell Mcnair on 12-08-2021 Protein (U) [Mass/Vol] Negative Negative [facility] Protein [Mass/volume] in Ser um or PlasmaOrdered By: Cornell Mcnair on 12-08-2021 Protein [Mass/Vol] 6.5 g/dL 6.1-7.9 [facility] RBC Auto (Bld) [#/Vol]Ordere d By: Cornell Mcnair on 12-08-2021 RBC (Bld) [#/Vol] 3.65 10*6/uL 3.60-5.[address] [facility] Serum or plasma alanine cox otransferase measurement without P-5'-P (enzymatic activiOrdered By: Cornell Mcnair on 12-08-2021 ALT No additional P-5'-P [Catalytic activity/Vol] 11 U/L 10-60 [facility] Serum or plasma albumin/glob ulin mass ratioOrdered By: Cornell Mcnair on 12-08-2021 Albumin/Globulin [Mass ratio] 1.1 {ratio} [facility] Serum or plasma alkaline sam sphatase measurement (enzymatic activity/volume)Ordered By: Cornell Mcnair on 12-08-2021 ALP [Catalytic activity/Vol] 64 U/L 32-92 [facility] Serum or plasma aspartate am inotransferase measurement (enzymatic activity/volume)Ordered By: Cornell Mcnair on 12-08-2021 AST [Catalytic activity/Vol] 22 U/L 10-42 [facility] Serum or plasma calcium katie urement (mass/volume)Ordered By: Cornell Mcnair on 12-08-2021 Calcium [Mass/Vol] 8.9 mg/dL 8.2-10.2 [facility] Serum or plasma chloride victorino surement (moles/volume)Ordered By: Cornell Mcnair on 12-08-2021 Chloride [Moles/Vol] 106 mmol/L 95-114 [facility] Serum or plasma ethanol katie urement (mass/volume)Ordered By: Cornell Mcnair on 12-08-2021 Ethanol [Mass/Vol] mg/dL [facility] Ethanol [Mass/Vol] TNP [facility] Comment on above: Test not performed Serum or plasma glucose katie urement (mass/volume)Ordered By: Cornell Mcnair on 12-08-2021 Glucose [Mass/Vol] 86 mg/dL 70-100 [facility] Comment on above: ADA recommended refe rence range Random Glucose Reference Range is dependent on time and content of last meal. Glucose of more than 200 mg/dL in a nonstressed, ambulatory subject supports the diagnosis of Diabetes Mellitus. Serum or plasma potassium me asurement (moles/volume)Ordered By: Cornell Mcnair on 12-08-2021 Potassium [Moles/Vol] 3.9 mmol/L 3.5-5.1 [facility] Serum or plasma sodium measu rement (moles/volume)Ordered By: Cornell Mcnair on 12-08-2021 Sodium [Moles/Vol] 137 mmol/L 136-146 [facility] Serum or plasma total biliru bin measurement (mass/volume)Ordered By: Cornell Mcnair on 12-08-2021 Bilirubin [Mass/Vol] 0.4 mg/dL 0.3-1.2 [facility] Serum or plasma total carbon dioxide measurement (moles/volume)Ordered By: Cornell Mcnair on 12-08-2021 CO2 [Moles/Vol] 23.8 mmol/L 22.0-30.[address] [facility] Serum or plasma urea nitroge n measurement (mass/volume)Ordered By: Cornell Mcnair on 12-08-2021 Urea nitrogen [Mass/Vol] 9 mg/dL - [facility] Specific gravity Auto test s trip (U) [Rel density]Ordered By: Cornell Mcnair on 12-08-2021 Specific gravity (U) [Rel density] 1.024 1.001-1.030 [facility] Squamous epithelial cells de tection in urine sediment by light microscopyOrdered By: Cornell Mcnair on 12-08-2021 Epithelial cells.squamous LM Ql (Urine sed) 10-19 [HPF] 0-2 [facility] Urine bacteria detection by automated methodOrdered By: Cornell Mcnair on 12-08-2021 Bacteria Auto Ql (U) None seen None Seen [facility] Urine clarity by refractomet ry automatedOrdered By: Cornell Mcnair on 12-08-2021 Clarity Refractometry automated (U) Cloudy Clear [facility] Urine cocaine detectionOrder ed By: Cornell Mcnair on 12-08-2021 Cocaine Ql (U) Negative Negative [facility] Urine glucose measurement by automated test strip (mass/volume)Ordered By: Cornell Mcnair on 12-08-2021 Glucose Auto test strip (U) [Mass/Vol] Normal mg/dL Normal [facility] Urine hemoglobin detection b y automated test stripOrdered By: Cornell Mcnair on 12-08-2021 Hemoglobin Auto test strip Ql (U) Negative Negative [facility] Urine leukocyte esterase det ection by automated test stripOrdered By: Cornell Mcnair on 12-08-2021 Leukocyte esterase Auto test strip Ql (U) 3+ Negative [facility] Urobilinogen Auto test strip (U) [Mass/Vol]Ordered By: Cornell Mcnair on 12-08-2021 Urobilinogen (U) [Mass/Vol] Normal mg/dL Normal [facility] Yeast detection in urine sed iment by light microscopyOrdered By: Cornell Mcnair on 12-08-2021 Yeast LM Ql (Urine sed) 1+ [HPF] None Seen [facility] pH Auto test strip (U)Ordere d By: Cornell Mcnair on 12-08-2021 pH (U) 5.0 [pH] 5.0-9.0 [facility] CNPMaribell 09-18-2021 [place] Telephone ([facility]) ----- MARICARMEN ANDERSON ([id number]) 1980 F CHT Date Time Provider Department [...] calling: self Call patient at: at home [phone] (home) [phone] (cell) Was an appointment scheduled: No Closing statement: Symptom Call: Thank you for calling [facility], your call is very important. 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 [employer] Operator: [facility] Transcribe Date/Time: Nov 13 2020 2:41P Dictated by : KURT MALIN MD This examination was interpreted and the report reviewed and electronically signed by: DHRUV KINGSLEY MD on Nov 13 2020 3:33PM EST [id number] Normal [facility] MRI KIDNEY WO/W IVCONon 05-2 MRI [...] included: axial precontrast T1 weighted in- and [id number], axial and coronal HASTE, axial DWI with [...] NO SUSPICIOUS OR ENHANCING RENAL LESIONS OTHERWISE. [employer] Operator: [facility] Transcribe Date/Time: Nov 13 2020 3:28P Dictated by : CHAO RODRIGUEZ MD This examination was interpreted and the report reviewed and electronically signed by: NACHO BARONE DO on Nov 13 2020 7:26PM EST [id number] Normal [facility] XR CHEST 2V FRONTAL/LATon XR CHEST [...] disease identified in the lungs or mediastinum. [employer] Operator: [facility] Transcribe Date/Time: Nov 13 2020 3:36P Dictated by : DESI MAHONEY MD This examination was interpreted and the report reviewed and electronically signed by: DESI MAHONEY MD on Nov 13 2020 3:38PM EST [id number] Normal [facility] Basic Metabolic Panlon 11-12 Anion gap [Moles/Vol] 9 mmol/L Normal 0-15 [facility] Calcium [Mass/Vol] 8.9 mg/dL Normal 8.5-10.2 [facility] Chloride [Moles/Vol] 112 mmol/L High 97-105 [facility] CO2 [Moles/Vol] 19 mmol/L Low 22-30 [facility] Creatinine [Mass/Vol] 0.73 mg/dL Normal 0.58-0.96 [facility] eGFR- Amer. >60 Normal [facility] eGFR-All Other Races >60 Normal [facility] Comment on above: Result Comment: eGFR (Estimated [...] GFR. Glucose [Mass/Vol] 89 mg/dL Normal 74-99 [facility] Potassium [Moles/Vol] 3.7 mmol/L Normal 3.7-5.1 [facility] Sodium [Moles/Vol] 140 mmol/L Normal 136-144 [facility] Urea nitrogen [Mass/Vol] 21 mg/dL Normal 7-21 [facility] Blood Cultureon 11-12-2020 Bacteria identified Cx Nom (Bld) Culture Result - No growth 5 days Normal [facility] Comment on above: Performed By: #### B LCUL ####[facility] [id number] [place], [place] [phone] Bacteria identified Cx Nom (Bld) Sp. Request/Comment: - 42.85CC Culture Result - No growth 5 days Normal [facility] Comment on above: Performed By: #### B LCUL ####[facility] [id number] [place], [place] [phone] CBCon 11-12-2020 Absolute nRBC <0.01 Normal <0.01 [facility] Erythrocyte distribution width (RBC) [Ratio] 16.8 % High 11.5-15.[address] [facility] Hematocrit (Bld) [Volume fraction] 28.9 % Low 36.0-46.[address] [facility] Hemoglobin (Bld) [Mass/Vol] 8.5 g/dL Low 11.5-15.[address] [facility] MCH 26.6 pG Normal 26.0-34.[address] [facility] MCHC (RBC) [Mass/Vol] 29.4 g/dL Low 30.5-36.0 [facility] MCV (RBC) [Entitic vol] 90.6 fL Normal 80.0-100.0 [facility] Platelet mean volume (Bld) [Entitic vol] 11.6 fL Normal 9.0-12.[address] [facility] Platelets (Bld) [#/Vol] 167 10*3/uL Normal 150-[address] [facility] RBC (Bld) [#/Vol] 3.19 10*6/uL Low 3.90-5.20 [facility] WBC (Bld) [#/Vol] 3.88 10*3/uL Normal 3.70-11.00 [facility] CNDSon 11-12-2020 CNDS HNO ID: [id number] Author: Lucero Wheeler DO Service: General Surgery [...] 40 year old female presented to [facility] on 11/09/2020 with fevers and left [...] needed for Nausea/Vo (more content not included)... [facility] CONSULT PROGon 11-12-2020 CONSULT PROG HNO ID: [id number] Author: Awais Gonzalez MD Service: Infectious Disease [...] Chest 3 days SIGNATURE: Awais Gonzalez MD [facility] NURSING PROGon 11-12-2020 NURSING PROG HNO ID: [id number] Author: Wisam Carvajal RN Service: ? Author Type: Registered Nurse Type: Nursing Progress Note Filed: 11/12/2020 6:21 PM Note Text: Nursing Progress Note Patient Name: Maricarmen Anderson [facility] [place] Daily Note: 09: Assessment complete, patient denies nausea, heat pad given for pain, will continue to monitor 1750: blood cultures collected and sent to lab 1820: Discharge instructions given This note was completed by: Wisam Carvajal [facility] SHAMEKA Panel 1on 11-11-2020 SHAMEKA by EIA 0.8 OD Ratio [facility] Comment on above: Result Comment: OD R atio is interpreted as follows: Negative <1.0 Positive >=1.0 Performed By: #### P REALB, TRANSF #### [facility] [address] [address] SHAMEKA by EIA, Qual Negative Normal Negative [facility] Comment on above: Performed By: #### P REALB, TRANSF #### [facility] [address] [address] Basic Metabolic Panlon 11-11 Anion gap [Moles/Vol] 9 mmol/L Normal 0-15 [facility] Calcium [Mass/Vol] 9.2 mg/dL Normal 8.5-10.2 [facility] Chloride [Moles/Vol] 115 mmol/L High 97-105 [facility] CO2 [Moles/Vol] 19 mmol/L Low 22-30 [facility] Creatinine [Mass/Vol] 0.78 mg/dL Normal 0.58-0.96 [facility] eGFR- Amer. >60 Normal [facility] eGFR-All Other Races >60 Normal [facility] Comment on above: Result Comment: eGFR (Estimated [...] GFR. Glucose [Mass/Vol] 89 mg/dL Normal 74-99 [facility] Potassium [Moles/Vol] 3.8 mmol/L Normal 3.7-5.1 [facility] Sodium [Moles/Vol] 143 mmol/L Normal 136-144 [facility] Urea nitrogen [Mass/Vol] 20 mg/dL Normal 7-21 [facility] Blood Cultureon 11-11-2020 Bacteria identified Cx Nom (Bld) Culture Result - No growth 5 days Normal [facility] Comment on above: Performed By: #### B LCUL ####[facility] [id number] [place], [place] [phone] C-Reactive Proteinon 021 CRP [Mass/Vol] mg/L Normal 0.1-0.89 [facility] Comment on above: Performed By: #### P REALB, TRANSF #### [facility] [address] [place], [place] [address] C3 Complementon 11-11-2020 C3 Complement 122 mg/dL Normal 86-166 [facility] Comment on above: Performed By: #### P REALB, TRANSF #### [facility] [address] [place], [place] [address] C4 Complementon 11-11-2020 C4 Complement 26 mg/dL Normal 13-46 [facility] Comment on above: Performed By: #### P REALB, TRANSF #### [facility] [address] [place], [place] [address] CBCon 11-11-2020 Absolute nRBC <0.01 Normal <0.[address] [facility] Erythrocyte distribution width (RBC) [Ratio] 16.6 % High 11.5-15.[address] [facility] Hematocrit (Bld) [Volume fraction] 30.0 % Low 36.0-46.[address] [facility] Hemoglobin (Bld) [Mass/Vol] 8.9 g/dL Low 11.5-15.[address] [facility] MCH 26.5 pG Normal 26.0-34.[address] [facility] MCHC (RBC) [Mass/Vol] 29.7 g/dL Low 30.5-36.0 [facility] MCV (RBC) [Entitic vol] 89.3 fL Normal 80.0-100.[address] [facility] Platelet mean volume (Bld) [Entitic vol] 11.5 fL Normal 9.0-12.[address] [facility] Platelets (Bld) [#/Vol] 155 10*3/uL Normal 150-[address] [facility] RBC (Bld) [#/Vol] 3.36 10*6/uL Low 3.90-5.20 [facility] WBC (Bld) [#/Vol] 4.41 10*3/uL Normal 3.70-11.00 [facility] CONSULTon 11-11-2020 CONSULT HNO ID: [id number] Author: Christopher Gonzalez V, MD Service: Infectious [...] Obesity, Class III, BMI 40-49.9 (morbid obesity) ([facility]) - Port-A-Cath in place patients [...] PSYCH: No (more content not included)... Normal [facility] NURSING PROGon 11-11-2020 NURSING PROG HNO ID: [id number] Author: Anne-Marie Farley RN Service: Nursing Author Type: Registered Nurse Type: Nursing Progress Note Filed: 11/11/2020 9:50 PM Note Text: Nursing Progress Note Patient Name: Maricarmen [place] Daily Note: 1945 received report, assumed pt care. According to medical team it is ok to use medport. 2147 Pt actively throwing up. Holding medications to be given when patient can swallow. 2147 Resident paged. This note was completed by: Anne-Marie Farley [facility] NURSING PROG HNO ID: [id number] Author: Carolina Lowry RN Service: ? Author Type: Registered Nurse Type: Nursing Progress Note Filed: 11/11/2020 7:46 PM Note Text: Nursing Progress Note Patient Name: Maricarmen Anderson [place] Note:Nursing assessment completed see NPR. No signs of distress. 1600 Spoke with the surgery doctor, ok to continue using medport. This note was completed by: Carolina Lowry [facility] ALLIED HEALTHon 11-10-2020 ALLIED HEALTH HNO ID: [id number] Author: RT Mary(Alex) Service: Radiology Author Type: Fingerprint Expert Type: Allied Health Filed: 11/09/2020 11:44 PM [...] RT(R) November 09, 2020 11:44 PM Normal [facility] Basic Metabolic Panlon 11-10 Anion gap [Moles/Vol] 9 mmol/L Normal 0-15 [facility] Calcium [Mass/Vol] 8.9 mg/dL Normal 8.5-10.2 [facility] Chloride [Moles/Vol] 114 mmol/L High 97-105 [facility] CO2 [Moles/Vol] 20 mmol/L Low 22-30 [facility] Creatinine [Mass/Vol] 0.83 mg/dL Normal 0.58-0.96 [facility] eGFR- Amer. >60 Normal [facility] eGFR-All Other Races >60 Normal [facility] Comment on above: Result Comment: eGFR (Estimated [...] GFR. Glucose [Mass/Vol] 93 mg/dL Normal 74-99 [facility] Potassium [Moles/Vol] 3.9 mmol/L Normal 3.7-5.1 [facility] Sodium [Moles/Vol] 143 mmol/L Normal 136-144 [facility] Urea nitrogen [Mass/Vol] 16 mg/dL Normal 7-21 [facility] CASE MGT INIT ASSESon 2020 CASE MGT INYANIQUE PATEL HNO ID: [id number] Author: Estela Avila RN Service: ? 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 Last discharge within 30 days: No Advance Directive: Current Advance Directive: None Worm Picker Attempted to Assist with AD Completion: Yes [...] None Has the Patient Been in a Alf Facility in the Past 30 days?: No SOCIAL: Living Arrangements: Home Lives With: Son Financial Resources: Disabled Primary Contact: Extended Emergency Contact Information Primary Emergency Contact: Khalida Anaya Mobile Relation: Sister Secondary Emergency Contact: Lucero Chaves Mobile Relation: Mother Supportive Patient Contact:: Yes Contact Resources: Family Family Name/Phone: Sister Khalida Anaya/[phone] Caregiver AssessmentCaregiver is ready, willing and able [...] Completely I feel financially burdened by my [id number] expenses for my prescription medication:: 0 - Disagree Completely Risk Score: 0 Patient is categorized as: Low risk < 2 Are you interested in bedside delivery of your medications? No Is Patient Psychosocially Complex?: No ASSESSMENT AND PLAN: Medical Needs: Medical Needs: Two or more chronic diseases Psychosocial Needs: Psychosocial Needs: None FREEDOM OF CHOICE EXPLAINED: Roby of Choice Given: No Reason Not Given: [...] 10, 2020 TIME: 9:45 AM PAGER/CONTACT #: [phone] Normal [facility] CBCon 11-10-2020 Absolute nRBC <0.01 Normal <0.[address] [facility] Erythrocyte distribution width (RBC) [Ratio] 16.6 % High 11.5-15.[address] [facility] Hematocrit (Bld) [Volume fraction] 29.0 % Low 36.0-46.[address] [facility] Hemoglobin (Bld) [Mass/Vol] 8.6 g/dL Low 11.5-15.[address] [facility] MCH 26.5 pG Normal 26.0-34.[address] [facility] MCHC (RBC) [Mass/Vol] 29.7 g/dL Low 30.5-36.0 [facility] MCV (RBC) [Entitic vol] 89.2 fL Normal 80.0-100.[address] [facility] Platelet mean volume (Bld) [Entitic vol] 11.2 fL Normal 9.0-12.[address] [facility] Platelets (Bld) [#/Vol] 165 10*3/uL Normal 150-[address] [facility] RBC (Bld) [#/Vol] 3.25 10*6/uL Low 3.90-5.20 [facility] WBC (Bld) [#/Vol] 4.26 10*3/uL Normal 3.70-11.00 [facility] NURSING PROGon 11-10-2020 NURSING PROG HNO ID: [id number] Author: Carolina Lowry RN Service: ? Author Type: Registered Nurse Type: Nursing Progress Note Filed: 11/10/2020 9:53 AM Note Text: Nursing Progress Note Patient Name: Maricarmen [place] Note:Nursing assessment completed see NPR. No signs of distress. This note was completed by: Carolina Lowry [facility] NUTRITIONon 11-10-2020 NUTRITION HNO ID: [id number] Author: Luz Watson RD Service: Nutrition Therapy [...] Weight loss;Patient/family self-report;Nausea;Vomiti ng Estimated kilocalorie needs: 5851-8251 kcal/day Calorie Calculation Method: 15-20 kcals/kg Estimated protein needs (grams): 76-100 gm protein/day Grams protein determined by: 1.3 - 1.7 g/kg;[place] body weight Care Plan: Continue current diet Supplements: [place] 1.0;Ensure Clear Monitor and Evaluation: Meet [...] protein shake. She ate 1 serving of polish toast this morning and had emesis following. [...] 2 Frequency 5. DINNER Supplement 3 LORAINE [place] 1.0 VANILLA Supplement 3 Frequency 3. LUNCH [...] November 10, 2020 TIME: 12:50 PM PAGER: [phone] Normal [facility] Urinalysis with Microscopico n 11-10-2020 Bacteria 3+ /HPF Critically abnormal Negative [facility] Bilirubin, Urine Negative Normal Negative [facility] Cast SEE COMMENT Normal 0 [facility] Comment on above: Result Comment: 0 Clarity (U) Clear Normal Clear [facility] Color (U) Yellow Normal Yellow [facility] Crystals LM Nom (Urine sed) SEE COMMENT Critically abnormal Negative [facility] Comment on above: Result Comment: 2+ Calcium Oxalate Epithelial cells LM Ql (Urine sed) SEE COMMENT Critically abnormal Occasional [facility] Comment on above: Result Comment: 1+ Squamous Epithelial Cells Glucose Ql (U) Negative Normal Negative [facility] Hemoglobin/Blood,Ur Negative Normal Negative [facility] Ketones Ql (U) Trace Critically abnormal Negative [facility] Leukest 1+ Critically abnormal Negative [facility] Mucus Ql (Urine sed) 1+ Normal [facility] Nitrite Ql (U) Negative Normal Negative [facility] pH (U) 6.5 [pH] Normal 5.0-8.0 [facility] Protein, Urine Trace Critically abnormal Negative [facility] RBC 3-5 Critically abnormal 0-[address] [facility] Specific [place], Ur 1.025 Normal 1.005-1.030 [facility] Urobilinogen Qn (U) 1.0 {José'U}/dL Normal 0.2-1.0 [facility] WBC 26-50 Critically abnormal 0-[address] [facility] XR LUMBAR 2V AP/LATon 2020 XR LUMBAR [...] 2V AP/LAT HISTORY: mid back pain (accession [id number]), back pain (accession [id number]) Mid-back/T-spine pain, initial exam. TECHNIQUE: XR THORACIC [...] on Nov 10 2020 7:09AM EST [id number] [facility] XR THORACIC 2V AP/LATon 10-21 XR THORACIC 2V AP/LAT * * *Final Report* * * DATE OF EXAM: Nov 09 2020 11:44PM SPX [id number] - XR THORACIC 2V AP/LAT / PROCEDURE REASON: Mid-back/T-spine pain, initial exam * * * * Physician Interpretation * * * * RESULT: EXAMINATION: XR THORACIC 2V AP/LAT, XR LUMBAR 2V AP/LAT HISTORY: mid back pain (accession [id number]), back pain (accession [id number]) Mid-back/T-spine pain, initial exam. TECHNIQUE: XR THORACIC [...] on Nov 10 2020 7:09AM EST [id number] [facility] HNO ID: [id number] Author: Uzair Monroy Service: Radiology Author Type: Fingerprint Expert Type: Allied Health Filed: 11/09/2020 7:56 AM [...] Uzair Monroy November 09, 2020 7:55 AM [facility] HNO ID: [id number] Author: Uzair Monroy Service: Radiology Author Type: Fingerprint Expert Type: [facility] Filed: 11/09/2020 7:51 AM Note Text: Radiology [...] Monroy November 09, 2020 7:51 AM Normal [facility] Blood Cultureon 11-09-2020 Bacteria identified Cx Nom (Bld) Culture Result - No growth 5 days Normal [facility] Comment on above: Performed By: #### B LCUL ####[facility] [place], [place] [phone] Bacteria identified Cx Nom (Bld) Additional Testing [...] and read back by: Nika Gore RN [facility] --> ABNORMAL ALERT [address] Surg 11/11/20 Brennan2 Chuckie Sharpe --> [...] to and read back by: BRANDIE QUINN [facility] --> ABNORMAL ALERT 11/11/20 at 0523 to MORIS --> ABNORMAL ALERT --> ABNORMAL ALERT Critically abnormal [facility] Comment on above: Performed By: #### B LCUL ####[facility] [address] [place], [place] [phone] CBC and Differentialon 11-09 Abs Baso <0.03 Normal <0.11 [facility] Abs [place] 0.29 k/uL Normal <0.87 [facility] Abs Neut 3.25 k/uL Normal 1.45-7.[address] [facility] Absolute nRBC <0.01 Normal <0.[address] [facility] Basophils/100 WBC (Bld) 0.4 % Normal [facility] DTYPE Auto Diff Normal [facility] Eosinophils (Bld) [#/Vol] 0.04 10*3/uL Normal <0.46 [facility] Eosinophils/100 WBC (Bld) 0.8 % Normal [facility] Erythrocyte distribution width (RBC) [Ratio] 16.3 % High 11.5-15.[address] [facility] Hematocrit (Bld) [Volume fraction] 31.9 % Low 36.0-46.0 [facility] Hemoglobin (Bld) [Mass/Vol] 9.6 g/dL Low 11.5-15.5 [facility] Lymphocytes (Bld) [#/Vol] 1.33 10*3/uL Normal 1.00-4.[address] [facility] Lymphocytes/100 WBC (Bld) 26.9 % Normal [facility] MCH 26.0 pG Normal 26.0-34.0 [facility] MCHC (RBC) [Mass/Vol] 30.1 g/dL Low 30.5-36.0 [facility] MCV (RBC) [Entitic vol] 86.4 fL Normal 80.0-100.0 [facility] Monocytes/100 WBC (Bld) 5.9 % Normal [facility] Neutrophils/100 WBC (Bld) 66.0 % Normal [facility] NRBCs 0.0 /100 WBC Normal 0 [facility] Platelet mean volume (Bld) [Entitic vol] 11.0 fL Normal 9.0-12.7 [facility] Platelets (Bld) [#/Vol] 173 10*3/uL Normal 150-[address] [facility] RBC (Bld) [#/Vol] 3.69 10*6/uL Low 3.90-5.20 [facility] WBC (Bld) [#/Vol] 4.95 10*3/uL Normal 3.70-11.00 [facility] CTA ABD/PELV W IVCONon 11-09 CTA ABD/PELV W IVCON * * *Final Report* * * DATE OF EXAM: Nov 09 2020 10:53AM [facility] - CTA ABD/PELV W IVCON / [...] on Nov 09 2020 10:53AM EST [id number] [facility] CTA CHEST (NONGATED) W IVCON on 11-09-2020 CTA CHEST (NONGATED) W IVCON * * *Final Report* * * DATE OF EXAM: Nov 09 2020 10:53AM [facility] - CTA CHEST (NONGATED) W IVCON [...] Nov 09 2020 10:53AM EST [id number] Normal [facility] Comp Metabolic Panelon 11-09 Albumin [Mass/Vol] 3.9 g/dL Normal 3.5-5.0 [facility] ALP [Catalytic activity/Vol] 56 U/L Normal 34-123 [facility] ALT [Catalytic activity/Vol] 9 U/L Normal 7-38 [facility] Anion gap [Moles/Vol] 9 mmol/L Normal 0-15 [facility] AST [Catalytic activity/Vol] 16 U/L Normal 13-35 [facility] Bilirubin [Mass/Vol] 0.5 mg/dL Normal 0.2-1.3 [facility] Calcium [Mass/Vol] 9.4 mg/dL Normal 8.5-10.2 [facility] Chloride [Moles/Vol] 110 mmol/L High 97-105 [facility] CO2 [Moles/Vol] 21 mmol/L Low 22-30 [facility] Creatinine [Mass/Vol] 0.75 mg/dL Normal 0.58-0.96 [facility] eGFR- Amer. >60 Normal [facility] eGFR-All Other Races >60 Normal [facility] Comment on above: Result Comment: eGFR (Estimated [...] GFR. Glucose [Mass/Vol] 91 mg/dL Normal 74-99 [facility] Potassium [Moles/Vol] 3.6 mmol/L Low 3.7-5.1 [facility] Protein [Mass/Vol] 6.6 g/dL Normal 6.3-8.0 [facility] Sodium [Moles/Vol] 140 mmol/L Normal 136-144 [facility] Urea nitrogen [Mass/Vol] 17 mg/dL Normal 7-21 [facility] D dimeron 11-09-2020 D dimer 770 ng/mL FEU High <500 [facility] Comment on above: Result Comment: 500 ng/mL [...] ED NOTEon 11-09-2020 ED NOTE HNO ID: [id number] Author: Yaya Singletary RN Service: ? Author Type: Registered Nurse Type: ED Notes Filed: 11/09/2020 1:34 PM Note Text: Report called to Abbey RN. All questions addressed. Vitals updated. Family at bedside. Pt NAD at this time. This RN at bedside to transport pt. Floor nurse aware of blood cultures and covid in process. [facility] ED NOTE HNO ID: [id number] Author: Yaya Singletary RN Service: ? Author Type: Registered Nurse Type: ED Notes Filed: 11/09/2020 7:44 AM Note Text: Portable CXR at bedside. [facility] ED NOTE HNO ID: [id number] Author: Yaya Singletary RN Service: ? Author Type: Registered Nurse Type: ED Notes Filed: 11/09/2020 7:18 AM Note Text: Assumed care of patient from Traci DIEGO. Pt in room standing up at bedside with emesis bag. NAD or active vomiting at this time. Joy PAULSON in room to talk with patient. [facility] ED NOTE HNO ID: [id number] Author: Connie Vazquez RN Service: ? 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 Normal [facility] HISTORY PHYSICALon HISTORY PHYSICAL HNO ID: [id number] Author: Ashley Loo MD Service: General Surgery [...] Obesity, Class III, BMI 40-49.9 (morbid obesity) ([facility]) - Port-A-Cath in place patients [...] Allergen Reactions (more content not included)... Normal [facility] High Sens Troponin Ton 11-09 High Sensitivity SALLY 6 ng/L Normal <12 [facility] Comment on above: Result Comment: When assessing [...] High Sensitivity SALLY 6 ng/L Normal <12 [facility] Comment on above: Result Comment: When assessing [...] CRISTINA+probe Ql (Unsp spec) Nasopharyngeal Swab Normal [facility] Comment on above: Performed By: #### I TCOVD ####[facility] [address] [place], [place] [phone] SARS-CoV-2 (COVID-19) RNA CRISTINA+probe Ql (Unsp spec) Negative for COVID19 (SARS CoV2) by RT-PCR or equivalent method. Normal Negative for COVID19 (SARS CoV2) by RT-PCR or equivalent method. [facility] Comment on above: Result Comment: This test was developed and its performance characteristics determined by [facility]'s [facility]. This test has been authorized by FDA under an Emergency Use Authorization (EUA). This test has been validated in accordance with the FDA's Guidance Document Policy for Diagnostics Testing in Laboratories Certified to Perform High Complexity Testing under CLIA prior to Emergency use Authorization for Coronavirus Disease 2019 during the Public Health Emergency issued on August 20, 2019. Test performed by [facility], [facility], [address], [place] [address]. Performed By: #### I TCOVD ####[facility] [place], [place] [phone] Lipaseon 11-09-2020 Lipase [Catalytic activity/Vol] 21 U/L Normal 16-61 [facility] NURSING PROGon 11-09-2020 NURSING PROG HNO ID: [id number] Author: Saskia Cm RN Service: ? Author Type: Registered Nurse Type: Nursing Progress Note Filed: 11/10/2020 6:04 AM Note Text: Nursing Progress Note Patient Name: Maricarmen Anderson [facility] [address] [address] Daily Note: Received report from BRANDIE Joel. 2019: Assessment completed, patient states feeling better than she did earlier today. Safety maintained, will continue to monitor. 2215: Observed patient asleep. 0005: Patient back up to floor from radiology. 0200: Observed patient asleep. 0309: Blood work collected. 0500: Observed patient asleep. 0603: Patient rates pain 8/10; paged resident. This note was completed by: Saskia Cm [facility] NURSING PROG HNO ID: [id number] Author: Wisam Carvajal RN Service: ? Author Type: Registered Nurse Type: Nursing Progress Note Filed: 11/09/2020 7:00 PM Note Text: Nursing Progress Note Patient Name: Maricarmen Anderson [facility] Daily Note: 1454: assessment complete, patient complains of severe left flank pain and nausea, will continue to monitor 1845: Blood cultures collected and sent to lab This note was completed by: Wisam Carvajal [facility] NURSING PROG HNO ID: [id number] Author: Wisam Carvajal RN Service: ? Author Type: Registered Nurse Type: Nursing Progress Note Filed: 11/09/2020 5:16 PM Note Text: Nursing Progress Note Patient Name: Maricarmen Anderson [facility] Transfer Note: Patient transferred into room/unit 931 in stable condition. Actions taken: No futher actions taken at this time. Will continue to monitor and check with patient. This note was completed by: Wisam Carvajal [facility] Urinalysis with Microscopico n 11-09-2020 Bacteria 3+ /HPF Critically abnormal Negative [facility] Bilirubin, Urine Negative Normal Negative [facility] Cast SEE COMMENT Normal 0 [facility] Comment on above: Result Comment: 0 Clarity (U) Slightly Cloudy Critically abnormal Clear [facility] Color (U) Yellow Normal Yellow [facility] Epithelial cells LM Ql (Urine sed) SEE COMMENT Critically abnormal Occasional [facility] Comment on above: Result Comment: 2+ Squamous Epithelial Cells Glucose Ql (U) Negative Normal Negative [facility] Hemoglobin/Blood,Ur Negative Normal Negative [facility] Ketones Ql (U) Negative Normal Negative [facility] Leukest 1+ Critically abnormal Negative [facility] Nitrite Ql (U) Negative Normal Negative [facility] pH (U) 6.5 [pH] Normal 5.0-8.0 [facility] Protein, Urine Trace Critically abnormal Negative [facility] RBC 0-3 Normal 0-[address] [facility] Specific [place], Ur >=1.030 Normal 1.005-1.030 [facility] Urobilinogen Qn (U) 2.0 {José'U}/dL High 0.2-1.[address] [facility] WBC 6-10 Critically abnormal 0-[address] [facility] Urine Cultureon 11-09-2020 Bacteria identified Cx Nom [...] - <10,000 CFU/ml Normal urogenital yogesh Normal [facility] Comment on above: Performed By: #### U RCUL ####[facility] [place], [place] [phone] XR CHEST 1V FRONTAL PORTon 0 11-09-2020 [...] on Nov 09 2020 7:59AM EST [id number] [facility] 11-08-2020 CNP Telephone (GENSSP) ----- MARICARMEN ANDERSON ([id number]) 1980 F CHT Date Time Provider Department 11/08/20 CLEMENTE ENG During your visit today, we recorded the following information about you: BYRON Richter 11/08/2020 9:29 AM Signed Called PCP office (Dr Viktor Sotelo) [phone] Dr is out of the office this week. Asked if Nurse could fax copies of recent lab work, imaging that may have been done while patient was recently hospitalized last week. BYRON Richter CT 11/09/2020 8:17 AM Signed Outside records received and scanned to [facility] Forwarded to Dr Eng. BYRON [...] Encounter Status:Closed by NICOLETTE SANCHEZ on 11/09/20 [facility] Raman 11-05-2020 [place] Telephone (Shoulder Options) ----- JUSTINJUAN PABLOMARICARMEN M ([id number]) 1980 F T Date Time Provider Department [...] Fully Assessed Reason for Visit: Patient Question [1807] Prescriptions as of 11/05/2020 Sig: LORAZEPAM 0.5 MG TABLET Take 0.5 mg by mouth twice da* LINACLOTIDE 145 MCG CAPSULE Take 1 capsule by mouth once * ACETAZOLAMIDE 250 MG TABLET Take 250 mg by mouth twice da* LAMOTRIGINE 25 MG TABLET Take 25 mg by mouth twice igncaio* HYDROCODONE 5 MG-ACETAMINOPHE* Take 1 tablet by [...] Status:Closed by CARLOS ALBERTO SIMMONS on 11/07/20 [facility] ----- MARICARM[facility] ANDERSON ([id number]) 1980 [facility] Date Time Provider Department 10/30/20 EMELIA BALDWIN [facility] During your visit today, we recorded the following information about you: Urmila Hein Adm 2020 8:29 AM Signed Order Request Caller : Maricarmen Contact Order Being Requested : MRI Cervical Spine Orders need to be placed in [facility] Laith Donaldson RN 2020 12:42 PM Signed [...] (HCC) [G93.5] Order(s):MRI CERVICAL SPINE WO IVCON [[id number]] Order #: [id number] FUTURE Prescriptions as of 2020 Sig: LORAZEPAM [...] Encounter Status:Closed by LAITH DONALDSON on 10/30/20 [facility] 10-22-2020 CNPN Telephone (SPPRAD) ----- MARICARMEN ANDERSON ([id number]) 1980 F T Date Time Provider Department [...] has already followed up on this with [facility] urologist. We will close this out of the actionable findings registry. Actionable Findings follow up status: Complete Doug Duncan PA-C October 22, 2020 12:28 PM Allergies As of Date: 10/22/2020 Noted Allergy Reaction DILAUDID (HYDROMORPHONE (BULK)) 03/28/2019 9 - Itching Date Reviewed: 09/29/2020 Reviewed by: Anne-Marie (Rn) BRANDIE Farley - Fully Assessed Reason for Visit: Radio Imaging Study Comments [4752] Prescriptions as of 10/22/2020 Sig: IV CONTRAST [...] Encounter Status:Closed by CLEMENTE ENG on 10/22/20 [facility] [place] Tele[facility] ([place]) ----- PAIGEMARICARMEN Johnson ([id number]) 1980 F [facility] Date Time Provider Department 10/08/20 CLEMENTE [...] patient should come to the ER at [facility] if she is dehydrated and a new tube will be placed. Dr Egn states that patient does have a fistula [...] Fully Assessed Reason for Visit: Patient Question [1206] Prescriptions as of 10/08/2020 Sig: ACETAZOLAMIDE 250 [...] Status:Closed by NICOLETTE KING on 10/09/20 Normal [facility] Basic Metabolic Panlon 09-29 Anion gap [Moles/Vol] 10 mmol/L Normal 0-15 [facility] Comment on above: Performed By: #### P REALB ####[facility] [address] [place], [place] [phone] Calcium [Mass/Vol] 9.4 mg/dL Normal 8.5-10.2 [facility] Comment on above: Performed By: #### P REALB ####[facility] [address] [place], [place] [phone] Chloride [Moles/Vol] 110 mmol/L High 97-105 [facility] Comment on above: Performed By: #### P REALB ####[address] [phone] CO2 [Moles/Vol] 20 mmol/L Low 22-30 [facility] Comment on above: Performed By: #### P REALB ####[place] [address] [place], [place] [phone] Creatinine [Mass/Vol] 0.75 mg/dL Normal 0.58-0.96 [facility] Comment on above: Performed By: #### P REALB ####[address] [phone] eGFR- Amer. >60 Normal [facility] Comment on above: Performed By: #### P REALB ####[address] [phone] eGFR-All Other Races >60 Normal [facility] Comment on above: Result Comment: eGFR (Estimated [...] actual GFR. Performed By: #### P REALB ####[address] [phone] Glucose [Mass/Vol] 108 mg/dL High 74-99 [facility] Comment on above: Performed By: #### P REALB ####[place] [phone] Potassium [Moles/Vol] 3.6 mmol/L Low 3.7-5.1 [facility] Comment on above: Performed By: #### P REALB ####[facility] [address] [place], [place] [phone] Sodium [Moles/Vol] 140 mmol/L Normal 136-144 [facility] Comment on above: Performed By: #### P REALB ####[facility] [address] [place], [place] [phone] Urea nitrogen [Mass/Vol] 12 mg/dL Normal 7-21 [facility] Comment on above: Performed By: #### P REALB ####[facility] [place], [place] [phone] CASE MANAGEMon 09-29-2020 CASE MANAGEM HNO ID: [id number] Author: Wiliam Santamaria Service: Case Management Author [...] the process utilized to ensure compliance with [facility] policy regarding Inpatient Admission and Observation Services. [...] physician's order as documented evidence of concurrence. [facility] CASE MGT INIT Cory 2020 CASE MGT INIT JORGE HNO ID: [id number] Author: Anaid (Rn) BRANDIE Valencia Service: ? 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 Last discharge within 30 days: No Advance Directive: Current Advance Directive: None Worm Picker Attempted to Assist with AD Completion: Yes [...] supplies Has the Patient Been in a Alf Facility in the Past 30 days?: No [...] Mostly I feel financially burdened by my mzv-zq-vabqru expenses for my prescription medication:: 0 - Disagree Mostly Risk Score: 0 Patient is categorized as: Low risk < 2 Are you interested in bedside delivery of your medications? Not known ASSESSMENT AND PLAN: Medical Needs: Medical Needs: Two or more chronic diseases;Nutritional Nutrition Needs: Tube Feed Psychosocial Needs: Psychosocial Needs: None FREEDOM OF CHOICE EXPLAINED: [place] of Choice Given: No (No new placeement needed and to continue with [facility]) POTENTIAL TRANSITION PLANS Home Care;Home Care Pharmacy Patient's young son lives with her, and when asked, she states that she is independent. Patient is on home enteral tube feedings via jejunostomy and here for malfunctioning tube. Provider is [employer] and referral sent. Patient is independent [...] 29, 2020 TIME: 11:04 AM PAGER/CONTACT #: [phone] Normal [facility] CBCon 09-29-2020 Absolute nRBC <0.01 Normal <0.[address] [facility] Comment on above: Performed By: #### P REALB ####[place] [address] [place] [place], [place] [phone] Erythrocyte distribution width (RBC) [Ratio] 15.3 % High 11.5-15.0 [facility] [place] Comment on above: Performed By: #### P REALB ####[place] [address], [place] [phone] Hematocrit (Bld) [Volume fraction] 30.3 % Low 36.0-46.0 [facility] Comment on above: Performed By: #### P REALB ####[place] [address], [place] [phone] Hemoglobin (Bld) [Mass/Vol] 9.1 g/dL Low 11.5-15.5 [facility] Comment on above: Performed By: #### P REALB ####[place] [address], [place] [phone] MCH 25.9 pG Low 26.0-34.0 [facility] Comment on above: Performed By: #### P REALB ####[place] [address] [place], [place] [phone] MCHC (RBC) [Mass/Vol] 30.0 g/dL Low 30.5-36.0 [facility] Comment on above: Performed By: #### P REALB ####[place] [address], [place] [phone] MCV (RBC) [Entitic vol] 86.3 fL Normal 80.0-100.0 [facility] Comment on above: Performed By: #### P REALB ####[place] [address], [place] [phone] Platelet mean volume (Bld) [Entitic vol] 10.6 fL Normal 9.0-12.7 [facility] Comment on above: Performed By: #### P REALB ####[place] [address], [place] [phone] Platelets (Bld) [#/Vol] 170 10*3/uL Normal 150-400 [facility] Comment on above: Performed By: #### P REALB ####[facility] [place], [place] [phone] RBC (Bld) [#/Vol] 3.51 10*6/uL Low 3.90-5.20 [facility] Comment on above: Performed By: #### P REALB ####[facility] [address] [place], [place] [phone] WBC (Bld) [#/Vol] 6.60 10*3/uL Normal 3.70-11.00 [facility] Comment on above: Performed By: #### P REALB ####[facility] [place], [place] [phone] CNDSon 09-29-2020 DS HNO ID: [id number] Author: Maynor Manley DO Service: General Surgery [...] DATE: September 29, 2020 TIME: 11:09 AM [facility] CT ABD/PEL WO IVCONon 2020 CT ABD/PEL WO IVCON * * *Final Report* * * DATE OF EXAM: Sep 28 2020 10:39PM [facility] - CT ABD/PEL WO IVCON / [...] Tissues: No acute abnormality. Lower thorax: Unremarkable. Preschool Adviser (topogram) images: No additional findings. IMPRESSION: Retracted [...] Sep 28 2020 11:12PM EST [id number] Normal [facility] Coronavirus 2019on 1 SARS-CoV-2 (COVID-19) RNA CRISTINA+probe Ql (Unsp spec) Nasopharyngeal Swab Normal [facility] Comment on above: Performed By: #### C OVID ####[facility] [place], [place] [phone] SARS-CoV-2 (COVID-19) RNA CRISTINA+probe Ql (Unsp spec) Negative Normal Negative for COVID19 (SARS CoV2) by PCR. [facility] Comment on above: Result Comment: This test was developed and its performance characteristics determined by [facility]'s [facility]. This test has been authorized by FDA under an Emergency Use Authorization (EUA). This test has been validated in accordance with the FDA's Guidance Document Policy for Diagnostics Testing in Laboratories Certified to Perform High Complexity Testing under CLIA prior to Emergency use Authorization for Coronavirus Disease 2019 during the Public Health Emergency issued on August 20, 2019. Test performed by [facility], [facility], [address], [place] [address]. Performed By: #### C OVID ####[facility] [place], [place] [phone] ED NOTEon 09-29-2020 ED NOTE HNO ID: [id number] Author: Soco VasquezRn) BRANDIE Bardales Service: ? Author Type: Registered Nurse Type: ED Notes Filed: 09/28/2020 11:04 PM Note Text: covid obtained and sent. [facility] NURSING PROGon 09-29-2020 NURSING PROG HNO ID: [id number] Author: Mercy VasquezRn) BRANDIE Whitaker Service: ? Author Type: Registered Nurse Type: Nursing Progress Note Filed: 09/29/2020 12:51 PM Note Text: Nursing Progress Note Patient Name: Maricarmen Anderson [facility] [address] Daily Note: patient resting in bed, made NPO for removal of J-tube. This note was completed by: Mercy Whitaker RN [facility] NURSING PROG HNO ID: [id number] Author: Anne-Marie VasquezRnNorth Farley RN Service: Nursing Author Type: Registered Nurse Type: Nursing Progress Note Filed: 09/29/2020 7:33 AM Note Text: Nursing Progress Note Patient Name: Maricarmen [place] Daily Note: 0054 Pt arrived in room, oriented to floor and room, safety maintained. 0100 Pt has a fever tylenol given. 0733 Report given to Mercy Coffey). This note was completed by: Anne-Marie Farley RN [facility] NUTRITION 09-29-2020 NUTRITION HNO ID: [id number] Author: Molly Tello) Gurpreet Service: Nutrition Therapy Author Type: Registered Dietitian Type: Nutrition Filed: 09/29/2020 11:21 AM Note Text: NUTRITION THERAPY INITIAL ASSESSMENT SERVICE DATE: 09/29/2020 SERVICE TIME: 11:13 AM Nutrition Assessment: Recommended Malnutrition Diagnosis: No Malnutrition Identified Nutrition Diagnosis: Problem: Inadequate Enteral Nutrition Infusion Related to: Mechanical cause As evidenced by: Patient/family self-report Estimated kilocalorie needs: 2269 Calorie Calculation Method: [place] (with activity factor) (1.3) Estimated protein needs (grams): 77-100 Grams protein determined by: 1.3 - 1.7 g/kg;[place] body weight Care Plan: Advance diet to regular diet with TF Supplements: zone bar, Boost GC, and Car [place] each daily Enteral Nutrition Tube Feeding Formula Type: [employer] Peptide 1.5 Goal Rate (mL/hr x hours): [...] NOW Question Answer Comment Supplement 1 ZONE [facility] STRAWBERRY YOGURT Supplement 1 Frequency 7. BREAKFAST, LUNCH, DINNER Supplement 2 BOOST GLUCOSE CONTROL STRAWBERRY Supplement 2 Frequency 7. BREAKFAST, LUNCH, DINNER Supplement 3 LORAINE [place] 1.0 CHOCOLATE Supplement 3 Frequency 7. BREAKFAST, [...] September 29, 2020 TIME: 11:13 AM PAGER: [id number] Normal [facility] Prealbuminon 09-29-2020 Prealbumin [Mass/Vol] 21 mg/dL Normal 17-36 [facility] Comment on above: Performed By: #### P REALB ####[facility] [address], [place] [phone] CBC and Differentialon 09-28 Abs Baso <0.03 Normal <0.11 [facility] Abs [place] 0.28 k/uL Normal <0.87 [facility] Abs Neut 5.26 k/uL Normal 1.45-7.[address] [facility] Absolute nRBC <0.01 Normal <0.[address] [facility] Basophils/100 WBC (Bld) 0.3 % Normal [facility] DTYPE Auto Diff Normal [facility] Eosinophils (Bld) [#/Vol] 0.04 10*3/uL Normal <0.[address] [facility] Eosinophils/100 WBC (Bld) 0.6 % Normal [facility] Erythrocyte distribution width (RBC) [Ratio] 15.2 % High 11.5-15.[address] [facility] Hematocrit (Bld) [Volume fraction] 31.5 % Low 36.0-46.0 [facility] Hemoglobin (Bld) [Mass/Vol] 9.3 g/dL Low 11.5-15.5 [facility] Lymphocytes (Bld) [#/Vol] 0.93 10*3/uL Low 1.00-4.[address] [facility] Lymphocytes/100 WBC (Bld) 14.2 % Normal [facility] MCH 25.6 pG Low 26.0-34.0 [facility] MCHC (RBC) [Mass/Vol] 29.5 g/dL Low 30.5-36.0 [facility] MCV (RBC) [Entitic vol] 86.8 fL Normal 80.0-100.0 [facility] Monocytes/100 WBC (Bld) 4.3 % Normal [facility] Neutrophils/100 WBC (Bld) 80.6 % Normal [facility] NRBCs 0.0 /100 WBC Normal 0 [facility] Platelet mean volume (Bld) [Entitic vol] 10.4 fL Normal 9.0-12.7 [facility] Platelets (Bld) [#/Vol] 186 10*3/uL Normal 150-400 [facility] RBC (Bld) [#/Vol] 3.63 10*6/uL Low 3.90-5.20 [facility] WBC (Bld) [#/Vol] 6.54 10*3/uL Normal 3.70-11.00 [facility] CNPNon 09-28-2020 CNPN Telephone (GENSSP) ----- MARICARMEN ANDERSON ([id number]) 1980 [facility] Date Time Provider Department 09/28/20 CLEMENTE ENG [...] Fully Assessed Reason for Visit: Patient Question [4257] Primary Visit Diagnosis:Gastrojejunosto my tube dislodgement [T85.528A] Order(s):XR ABDOMEN 1V SUPINE [[id number]] Order #: [id number] FUTURE Prescriptions as of 09/28/2020 Sig: ACETAZOLAMIDE [...] Encounter Status:Closed by NICOLETTE KING on 09/28/20 [facility] CONSULTon 09-28-2020 CONSULT HNO ID: [id number] Author: Elissa Medina MD Service: General Surgery [...] swelling RESPIRATO (more content not included)... Normal [facility] Comp Metabolic Panelon 09-28 Albumin [Mass/Vol] 4.3 g/dL Normal 3.5-5.0 [facility] ALP [Catalytic activity/Vol] 72 U/L Normal 34-123 [facility] ALT [Catalytic activity/Vol] 11 U/L Normal 7-38 [facility] Anion gap [Moles/Vol] 11 mmol/L Normal 0-15 [facility] AST [Catalytic activity/Vol] 19 U/L Normal 13-35 [facility] Bilirubin [Mass/Vol] 0.4 mg/dL Normal 0.2-1.3 [facility] Calcium [Mass/Vol] 9.6 mg/dL Normal 8.5-10.2 [facility] Chloride [Moles/Vol] 110 mmol/L High 97-105 [facility] CO2 [Moles/Vol] 18 mmol/L Low 22-30 [facility] Creatinine [Mass/Vol] 0.68 mg/dL Normal 0.58-0.96 [facility] eGFR- Amer. >60 Normal [facility] eGFR-All Other Races >60 Normal [facility] Comment on above: Result Comment: eGFR (Estimated [...] GFR. Glucose [Mass/Vol] 97 mg/dL Normal 74-99 [facility] Potassium [Moles/Vol] 3.8 mmol/L Normal 3.7-5.1 [facility] Protein [Mass/Vol] 7.3 g/dL Normal 6.3-8.0 [facility] Sodium [Moles/Vol] 139 mmol/L Normal 136-144 [facility] Urea nitrogen [Mass/Vol] 14 mg/dL Normal 7-21 [facility] ED NOTEon 09-28-2020 ED NOTE HNO ID: [id number] Author: Arminda VasquezRn) BRANDIE Wong Service: ? Author Type: Registered Nurse Type: ED Notes Filed: 09/28/2020 9:17 PM Note Text: Pt has finished Contrast via tube Normal [facility] ED NOTE HNO ID: [id number] Author: Keven VasquezRnNorth Reid RN Service: ? [...] rails up x2. Call bagley within reach. [facility] ED PROV NOTEon 09-28-2020 ED PROV NOTE HNO ID: [id number] Author: LORENE Singleton Service: Emergency Medicine Author Type: Physician Catastrophe Claims Supervisor Type: ED Provider Notes Filed: 09/28/2020 11:36 [...] Obesity, Class III, BMI 40-49.9 (morbid obesity) ([facility]) - Port-A-Cath in place patients [...] of the (more content not included)... Normal [facility] Lipaseon 09-28-2020 Lipase [Catalytic activity/Vol] 30 U/L Normal 16-61 [facility] Basic Metabolic Panlon 05-29 Anion gap [Moles/Vol] 10 mmol/L Normal 0-15 [facility] Calcium [Mass/Vol] 9.2 mg/dL Normal 8.5-10.2 [facility] Chloride [Moles/Vol] 106 mmol/L High 97-105 [facility] CO2 [Moles/Vol] 23 mmol/L Normal 22-30 [facility] Creatinine [Mass/Vol] 0.78 mg/dL Normal 0.58-0.96 [facility] eGFR- Amer. >60 Normal [facility] eGFR-All Other Races >60 Normal [facility] Comment on above: Result Comment: eGFR (Estimated GFR) Units of measure: mL/min/1.73 meters squared eGFR is derived from the reexpressed MDRD Study equation using the following parameters: serum creatinine, age, gender and race. The creatinine assay has been calibrated to be traceable to [employer]. An eGFR <60 mL/min/1.73m2 for >3 months is consistent with chronic kidney disease. Refer to KDOQI guidelines for clinical interpretation. In patients with unstable renal function, e.g. those with acute kidney injury, the eGFR may not accurately reflect actual GFR. Glucose [Mass/Vol] 88 mg/dL Normal 74-99 [facility] Potassium [Moles/Vol] 3.9 mmol/L Normal 3.7-5.1 [facility] Sodium [Moles/Vol] 139 mmol/L Normal 136-144 [facility] Urea nitrogen [Mass/Vol] 8 mg/dL Normal 7-21 [facility] CBC and Differentialon 05-29 Abs Baso <0.03 Normal <0.11 [facility] Abs [place] 0.33 k/uL Normal <0.87 [facility] Abs Neut 2.58 k/uL Normal 1.45-7.[address] [facility] Absolute nRBC <0.01 Normal <0.[address] [facility] Basophils/100 WBC (Bld) 0.5 % Normal [facility] DTYPE Auto Diff Normal [facility] Eosinophils (Bld) [#/Vol] 0.08 10*3/uL Normal <0.46 [facility] Eosinophils/100 WBC (Bld) 1.9 % Normal [facility] Erythrocyte distribution width (RBC) [Ratio] 13.5 % Normal 11.5-15.0 [facility] Hematocrit (Bld) [Volume fraction] 27.4 % Low 36.0-46.0 [facility] Hemoglobin (Bld) [Mass/Vol] 8.4 g/dL Low 11.5-15.5 [facility] Lymphocytes (Bld) [#/Vol] 1.25 10*3/uL Normal 1.00-4.[address] [facility] Lymphocytes/100 WBC (Bld) 29.3 % Normal [facility] MCH 27.6 pG Normal 26.0-34.0 [facility] MCHC (RBC) [Mass/Vol] 30.7 g/dL Normal 30.5-36.0 [facility] MCV (RBC) [Entitic vol] 90.1 fL Normal 80.0-100.0 [facility] Monocytes/100 WBC (Bld) 7.7 % Normal [facility] Neutrophils/100 WBC (Bld) 60.6 % Normal [facility] NRBCs 0.0 /100 WBC Normal 0 [facility] Platelet mean volume (Bld) [Entitic vol] 10.9 fL Normal 9.0-12.7 [facility] Platelets (Bld) [#/Vol] 148 10*3/uL Low 150-[address] [facility] RBC (Bld) [#/Vol] 3.04 10*6/uL Low 3.90-5.20 [facility] WBC (Bld) [#/Vol] 4.27 10*3/uL Normal 3.70-11.00 [facility] CNDSon 05-29-2020 [facility] HNO ID: [id number] Author: Deirdre Dejesus Service: General Surgery Author [...] Suppository by RECTAL (more content not included)... [facility] NURSING PROGon 05-29-2020 NURSING PROG HNO ID: [id number] Author: Mitchel VasquezRn) BRANDIE Larry Service: Nursing Author Type: Registered Nurse Type: Nursing Progress Note Filed: 05/29/2020 3:35 PM Note Text: Nursing Progress Note Patient Name: Maricarmen Anderson [facility] [place]30 Assumed care of patient after report from night RN. 1311 tube feed rate increased to goal rate of 55 ml/hr. Dr. Eng (PCP) plans to discharge today. No distress at this time. Patient expressing eagerness to go home [address] Eng he is to have risk management intern write up discharge order and instructions. This note was completed by: Mitchel Larry RN [facility] NUTRITIONon 05-29-2020 NUTRITION HNO ID: [id number] Author: Maricarmen Tello) Jack Service: Nutrition Therapy Author Type: Registered Dietitian Type: Nutrition Filed: 05/29/2020 11:16 AM Note Text: NUTRITION THERAPY PROGRESS NOTE SERVICE DATE: 05/29/2020 SERVICE TIME: 11:15 AM Nutrition Assessment: Recommended Malnutrition Diagnosis: Mild Protein-Calorie Malnutrition (05/26/20 1142 : Molly (Maik) Gurpreet) Estimated kilocalorie needs: 2040 Calorie Calculation Method: [place] (with activity factor)(1.2 AF) Estimated protein needs (grams): 89-118 Grams protein determined by: 1.5-2.0 g/kg Care Plan: Continue current diet Increase to goal as tolerated Enteral Nutrition Tube Feeding Formula Type: [employer] Peptide 1.5 Goal Rate (mL/hr x hours): [...] Tube Feeding;Diet Diet: per physician Enteral/Tube Feedings: [employer] Peptide 1.5 @ 55 ml/hr Interval History:Pt started on TF [employer] Peptide 1.5. Currently running at 40 ml/hr [...] May 29, 2020 TIME: 11:15 AM PAGER: [phone] [facility] ANES POSTPROC EVALon 020 ANES POSTPROC EVAL HNO ID: [id number] Author: Dennis Coulter Service: ? Author Type: [...] May 28, 2020 TIME: 12:32 PM CSN: [id number] [facility] ANES PRE-OPon 05-28-2020 ANES PRE-OP HNO ID: [id number] Author: Dennis Coulter Service: ? Author Type: [...] Goal r (more content not included)... Normal [facility] Basic Metabolic Panlon 05-28 Anion gap [Moles/Vol] 7 mmol/L Normal 0-15 [facility] Calcium [Mass/Vol] 9.1 mg/dL Normal 8.5-10.2 [facility] Chloride [Moles/Vol] 106 mmol/L High 97-105 [facility] CO2 [Moles/Vol] 29 mmol/L Normal 22-30 [facility] Creatinine [Mass/Vol] 0.68 mg/dL Normal 0.58-0.96 [facility] eGFR- Amer. >60 Normal [facility] eGFR-All Other Races >60 Normal [facility] Comment on above: Result Comment: eGFR (Estimated GFR) Units of measure: mL/min/1.73 meters squared eGFR is derived from the reexpressed MDRD Study equation using the following parameters: serum creatinine, age, gender and race. The creatinine assay has been calibrated to be traceable to [employer]. An eGFR <60 mL/min/1.73m2 for >3 months is consistent with chronic kidney disease. Refer to KDOQI guidelines for clinical interpretation. In patients with unstable renal function, e.g. those with acute kidney injury, the eGFR may not accurately reflect actual GFR. Glucose [Mass/Vol] 86 mg/dL Normal 74-99 [facility] Potassium [Moles/Vol] 3.4 mmol/L Low 3.7-5.1 [facility] Sodium [Moles/Vol] 142 mmol/L Normal 136-144 [facility] Urea nitrogen [Mass/Vol] 6 mg/dL Low 7-21 [facility] CBC and Differentialon 05-28 Abs Baso 0.03 k/uL Normal <0.11 [facility] Abs [place] 0.26 k/uL Normal <0.[address] [facility] Abs Neut 2.02 k/uL Normal 1.45-7.[address] [facility] Absolute nRBC <0.01 Normal <0.[address] [facility] Basophils/100 WBC (Bld) 0.9 % Normal [facility] DTYPE Auto Diff Normal [facility] Eosinophils (Bld) [#/Vol] 0.06 10*3/uL Normal <0.46 [facility] Eosinophils/100 WBC (Bld) 1.8 % Normal [facility] Erythrocyte distribution width (RBC) [Ratio] 13.4 % Normal 11.5-15.0 [facility] Hematocrit (Bld) [Volume fraction] 26.2 % Low 36.0-46.0 [facility] Hemoglobin (Bld) [Mass/Vol] 8.2 g/dL Low 11.5-15.5 [facility] Lymphocytes (Bld) [#/Vol] 0.97 10*3/uL Low 1.00-4.[address] [facility] Lymphocytes/100 WBC (Bld) 29.0 % Normal [facility] MCH 27.8 pG Normal 26.0-34.0 [facility] MCHC (RBC) [Mass/Vol] 31.3 g/dL Normal 30.5-36.0 [facility] MCV (RBC) [Entitic vol] 88.8 fL Normal 80.0-100.0 [facility] Monocytes/100 WBC (Bld) 7.8 % Normal [facility] Neutrophils/100 WBC (Bld) 60.5 % Normal [facility] NRBCs 0.0 /100 WBC Normal 0 [facility] Platelet mean volume (Bld) [Entitic vol] 10.7 fL Normal 9.0-12.7 [facility] Platelets (Bld) [#/Vol] 157 10*3/uL Normal 150-400 [facility] RBC (Bld) [#/Vol] 2.95 10*6/uL Low 3.90-5.20 [facility] WBC (Bld) [#/Vol] 3.34 10*3/uL Low 3.70-11.00 [facility] NURSING PROGon 05-28-2020 NURSING PROG HNO ID: [id number] Author: Leander VasquezRn) BRANDIE Shaver Service: ? Author Type: Registered Nurse Type: Nursing Progress Note Filed: 05/29/2020 8:02 AM Note Text: Nursing Progress Note Patient Name: Maricarmen Anderson Patient [facility]: [facility] Daily Note: 1929 Report received from BRANDIE Ho and barry and care of pt assumed 1944 Safety check performed 2117 Pt assessment completed and pt medicated appropriately 0200 Pt is asleep with no signs of distress at this time. Call bagley in reach 729 Report given to BRANDIE Mcdonough/Radu This note was completed by: Leander Shaver RN Normal [facility] NURSING PROG HNO ID: [id number] Author: [place] VasquezRn) BRANDIE King Service: ? Author Type: Registered Nurse Type: Nursing Progress Note Filed: 05/28/2020 12:43 PM Note Text: Nursing Progress Note Patient Name: Maricarmen Anderson Patient Location: [facility] POOL/[facility] PO* Daily Note: Verbal order from Dr. Gold for fentanyl and zofran IV for patient's pain and nausea. This note was completed by: ALBANIA King RN Normal [facility] NURSING PROG HNO ID: [id number] Author: [place] (Rn) BRANDIE Mcnair Service: Nursing Author Type: Registered Nurse Type: Nursing Progress Note Filed: 05/28/2020 5:11 PM Note Text: Nursing Progress Note Patient Name: Maricarmen Anderson [facility] [place] Daily Note: 0700 Report received from BRANDIE [...] PTAs. This note was completed by: [place] Mncair RN Normal [facility] CBC and Differentialon 05-27 Abs Baso <0.03 Normal <0.11 [facility] Abs [place] 0.29 k/uL Normal <0.87 [facility] Abs Neut 2.00 k/uL Normal 1.45-7.[address] [facility] Absolute nRBC <0.01 Normal <0.[address] [facility] Basophils/100 WBC (Bld) 0.3 % Normal [facility] DTYPE Auto Diff Normal [facility] Eosinophils (Bld) [#/Vol] 0.08 10*3/uL Normal <0.46 [facility] Eosinophils/100 WBC (Bld) 2.2 % Normal [facility] Erythrocyte distribution width (RBC) [Ratio] 13.6 % Normal 11.5-15.0 [facility] Hematocrit (Bld) [Volume fraction] 25.7 % Low 36.0-46.0 [facility] Hemoglobin (Bld) [Mass/Vol] 8.0 g/dL Low 11.5-15.5 [facility] Lymphocytes (Bld) [#/Vol] 1.34 10*3/uL Normal 1.00-4.[address] [facility] Lymphocytes/100 WBC (Bld) 36.0 % Normal [facility] MCH 27.9 pG Normal 26.0-34.0 [facility] MCHC (RBC) [Mass/Vol] 31.1 g/dL Normal 30.5-36.0 [facility] MCV (RBC) [Entitic vol] 89.5 fL Normal 80.0-100.0 [facility] Monocytes/100 WBC (Bld) 7.8 % Normal [facility] Neutrophils/100 WBC (Bld) 53.7 % Normal [facility] NRBCs 0.0 /100 WBC Normal 0 [facility] Platelet mean volume (Bld) [Entitic vol] 10.6 fL Normal 9.0-12.[address] [facility] Platelets (Bld) [#/Vol] 150 10*3/uL Normal 150-[address] [facility] RBC (Bld) [#/Vol] 2.87 10*6/uL Low 3.90-5.20 [facility] WBC (Bld) [#/Vol] 3.72 10*3/uL Normal 3.70-11.[address] [facility] [address] KIDNEY WO/W IVCONon 05-27 CT KIDNEY WO/W IVCON * * *Final Report* * * DATE OF EXAM: May 27 2020 12:32PM [facility] [place] KIDNEY WO/W IVCON / [...] hypoventilatory changes in the dependent lung bases. Preschool Adviser (topogram) images: No additional findings. IMPRESSION: Hypodense [...] May 27 2020 1:14PM EST [id number] Normal [facility] Comp Metabolic Panelon 05-27 Albumin [Mass/Vol] 3.4 g/dL Low 3.5-5.0 [facility] ALP [Catalytic activity/Vol] 73 U/L Normal 34-[address] [facility] ALT [Catalytic activity/Vol] U/L Low 7-38 [facility] Anion gap [Moles/Vol] 12 mmol/L Normal 0-15 [facility] AST [Catalytic activity/Vol] 15 U/L Normal 13-35 [facility] Bilirubin [Mass/Vol] 0.3 mg/dL Normal 0.2-1.3 [facility] Calcium [Mass/Vol] 8.8 mg/dL Normal 8.5-10.2 [facility] Chloride [Moles/Vol] 106 mmol/L High 97-105 [facility] CO2 [Moles/Vol] 24 mmol/L Normal 22-30 [facility] Creatinine [Mass/Vol] 0.70 mg/dL Normal 0.58-0.96 [facility] eGFR- Amer. >60 Normal [facility] eGFR-All Other Races >60 Normal [facility] Comment on above: Result Comment: eGFR (Estimated [...] GFR. Glucose [Mass/Vol] 99 mg/dL Normal 74-99 [facility] Potassium [Moles/Vol] 3.6 mmol/L Low 3.7-5.1 [facility] Protein [Mass/Vol] 5.7 g/dL Low 6.3-8.0 [facility] Sodium [Moles/Vol] 142 mmol/L Normal 136-144 [facility] Urea nitrogen [Mass/Vol] 5 mg/dL Low 7-21 [facility] NURSING PROGon 05-27-2020 NURSING PROG HNO ID: [id number] Author: Tacho (Rn) BRANDIE Marr Service: ? Author Type: Registered Nurse Type: Nursing Progress Note Filed: 05/28/2020 3:20 AM Note Text: Nursing Progress Note Patient Name: Maricarmen Anderson Patient Location: [facility] [place] [address] Daily Note: 1919 Assumed care of patient, [...] 1.5 ordered, this is not supplied at [facility]. [place] 1.0 is at bedside, is this okay to use in place? Please advise. Thanks, Kp @ [phone] Tube feed held per orders for EGD, 05/28. This note was completed by: Tacho Marr RN Normal [facility] NURSING PROG HNO ID: [id number] Author: Bibi VasquezRn) BRANDIE Freeman Service: Nursing Author Type: Registered Nurse Type: Nursing Progress Note Filed: 05/27/2020 7:25 PM Note Text: Nursing Progress Note Patient Name: Maricarmen Anderson Patient [id number] Daily Note:0724am updates from cement worker nurse. Iv fluids at 50ml/hr per pt's [...] noted surgery changed pt's tube feed to Napartner peptide 1.5. will arrive from dietary. 1925pm updates to cement worker nurse. This note was completed by: Bibi Freeman, RN Normal [facility] CBC and Differentialon 05-26 Abs Baso <0.03 Normal <0.11 [facility] Abs [place] 0.32 k/uL Normal <0.[address] [facility] Abs Neut 1.63 k/uL Normal 1.45-7.[address] [facility] Absolute nRBC <0.01 Normal <0.[address] [facility] Basophils/100 WBC (Bld) 0.5 % Normal [facility] DTYPE Auto Diff Normal [facility] Eosinophils (Bld) [#/Vol] 0.07 10*3/uL Normal <0.[address] [facility] Eosinophils/100 WBC (Bld) 1.8 % Normal [facility] Erythrocyte distribution width (RBC) [Ratio] 13.6 % Normal 11.5-15.[address] [facility] Hematocrit (Bld) [Volume fraction] 27.2 % Low 36.0-46.0 [facility] Hemoglobin (Bld) [Mass/Vol] 8.5 g/dL Low 11.5-15.5 [facility] Lymphocytes (Bld) [#/Vol] 1.85 10*3/uL Normal 1.00-4.[address] [facility] Lymphocytes/100 WBC (Bld) 47.4 % Normal [facility] MCH 27.7 pG Normal 26.0-34.0 [facility] MCHC (RBC) [Mass/Vol] 31.3 g/dL Normal 30.5-36.0 [facility] MCV (RBC) [Entitic vol] 88.6 fL Normal 80.0-100.0 [facility] Monocytes/100 WBC (Bld) 8.2 % Normal [facility] Neutrophils/100 WBC (Bld) 42.1 % Normal [facility] NRBCs 0.0 /100 WBC Normal 0 [facility] Platelet mean volume (Bld) [Entitic vol] 10.4 fL Normal 9.0-12.7 [facility] Platelets (Bld) [#/Vol] 150 10*3/uL Normal 150-400 [facility] RBC (Bld) [#/Vol] 3.07 10*6/uL Low 3.90-5.20 [facility] WBC (Bld) [#/Vol] 3.90 10*3/uL Normal 3.70-11.00 [facility] CONSULT PROGon 05-26-2020 CONSULT PROG HNO ID: [id number] Author: Raleigh Srivastava DO Service: General Surgery [...] DO Pager: DATE: 05/26/2020 TIME: 5:50 AM [facility] CT ABD/PEL W IVCONon 020 CT ABD/PEL W IVCON * * *Final Report* * * DATE OF EXAM: May 26 2020 12:43PM [facility] [place] CT ABD/PEL W IVCON / [...] atelectasis. Partially visualized electrodes in the heart. Preschool Adviser (topogram) images: No additional findings. IMPRESSION: No [...] be communicated with the ordering provider via Zoe Majeste staff message by [employer] Support Services within 2 business days of report finalization. Algorithms for management of incidental imaging findings can be found on the [facility] Intranet Sharepoint site at: [email or web address] [email or web address] Transcribed Using Voice Recognition Transcribe Date/Time: May 26 2020 12:59P Dictated by: ANIKET SIERRA MD This examination was interpreted and the report reviewed and electronically signed by: ANIKET SIERRA MD on May 26 2020 1:24PM EST [id number] ACTIONABLE Invalid Interpretation Code [facility] Comp Metabolic Panelon 05-26 Albumin [Mass/Vol] 3.6 g/dL Normal 3.5-5.0 [facility] ALP [Catalytic activity/Vol] 79 U/L Normal 34-123 [facility] ALT [Catalytic activity/Vol] 6 U/L Low 7-38 [facility] Anion gap [Moles/Vol] 8 mmol/L Normal 0-15 [facility] AST [Catalytic activity/Vol] 13 U/L Normal 13-35 [facility] Bilirubin [Mass/Vol] 0.4 mg/dL Normal 0.2-1.3 [facility] Calcium [Mass/Vol] 9.0 mg/dL Normal 8.5-10.2 [facility] Chloride [Moles/Vol] 106 mmol/L High 97-105 [facility] CO2 [Moles/Vol] 28 mmol/L Normal 22-30 [facility] Creatinine [Mass/Vol] 0.68 mg/dL Normal 0.58-0.96 [facility] eGFR- Amer. >60 Normal [facility] eGFR-All Other Races >60 Normal [facility] Comment on above: Result Comment: eGFR (Estimated [...] GFR. Glucose [Mass/Vol] 98 mg/dL Normal 74-99 [facility] Potassium [Moles/Vol] 3.5 mmol/L Low 3.7-5.1 [facility] Protein [Mass/Vol] 6.1 g/dL Low 6.3-8.0 [facility] Sodium [Moles/Vol] 142 mmol/L Normal 136-144 [facility] Urea nitrogen [Mass/Vol] 8 mg/dL Normal 7-21 [facility] Coronavirus 2019on 0 SARS-CoV-2 (COVID-19) RNA CRISTINA+probe Ql (Unsp spec) Nasopharyngeal Swab Normal [facility] Comment on above: Performed By: #### C OVID ####[facility] [address] [place], [place] [phone] SARS-CoV-2 (COVID-19) RNA CRISTINA+probe Ql (Unsp spec) Negative Normal Negative for COVID19 (SARS CoV2) by PCR. [facility] Comment on above: Result Comment: This test was developed and its performance characteristics determined by [facility]'s [facility]. This test has been authorized by FDA under an Emergency Use Authorization (EUA). This test has been validated in accordance with the FDA's Guidance Document Policy for Diagnostics Testing in Laboratories Certified to Perform High Complexity Testing under CLIA prior to Emergency use Authorization for Coronavirus Disease 2019 during the Public Health Emergency issued on August 20, 2019. Performed By: #### C OVID ####[facility] [place], [place] [phone] Folate, Serumon 05-26-2020 Folate [Mass/Vol] 5.7 ng/mL Normal >4.7 [facility] Comment on above: Performed By: #### P THI, VITD, B1WB ####[address] [phone] Hemoglobin A1con 05-26-2020 Glucose [Mass/Vol] 114 mg/dL Normal [facility] Comment on above: Result Comment: eAG: (Estimated average glucose) is a calculated value from HgbA1c and is sales representative rural power of the average blood glucose level in the last 2-3 month period. Performed By: #### P REALB, TRANSF #### [address] [phone] HbA1c (Bld) [Mass fraction] 5.6 % Normal 4.3-5.6 [facility] Comment on above: Result Comment: Amer ican Diabetes Association guidelines indicate that patients with HgbA1c in the range 5.7-6.4% are at increased risk for development of diabetes, and intervention by lifestyle modification may be beneficial. HgbA1c greater or equal to 6.5% is considered diagnostic of diabetes. Performed By: #### P REALB, TRANSF #### [address] [address] Iron and TIBCon 05-26-2020 Iron [Mass/Vol] 20 ug/dL Low 41-186 [facility] Comment on above: Performed By: #### P THI, VITD, B1WB ####[address] [phone] TIBC 341 ug/dL Normal 210-415 [facility] Comment on above: Performed By: #### P THI, VITD, B1WB ####[address] [phone] Transferrin Saturatn 6 % Low 11-46 [facility] Comment on above: Performed By: #### P THI, VITD, B1WB ####[facility] [address], [place] [phone] Lipaseon 05-26-2020 Lipase [Catalytic activity/Vol] 112 U/L High 16-61 [facility] Lipid Panel, Basicon 020 Cholesterol [Mass/Vol] 188 mg/dL Normal <[address] [facility] Comment on above: Result Comment: <200 mg/dL, Desirable 200-239 mg/dL, Borderline high >239 mg/dL, High Performed By: #### P THI, VITD, B1WB ####[place] [address] [address], [place] [phone] Cholesterol in HDL [Mass/Vol] 57 mg/dL Normal >39 [facility] Comment on above: Result Comment: 40-5 9 mg/dL, Acceptable >59 mg/dL, High: Negative risk factor for coronary heart disease <40 mg/dL, Low: Positive risk factor for coronary heart disease Performed By: #### P THI, VITD, B1WB ####[place] [address] [address] [place], [place] [phone] Cholesterol in LDL [Mass/Vol] 113 mg/dL High <100 [facility] Comment on above: Result Comment: <100 mg/dL, Optimal 100-129 mg/dL, Near optimal/above optimal 130-159 mg/dL, Borderline high 160-189 mg/dL, High >189 mg/dL, Very high Secondary prevention optimal LDL Cholesterol levels are recommended to be < 70 mg/dL Performed By: #### P THI, VITD, B1WB ####[facility] [address], [place] [phone] Fasting Time Blood Normal [facility] Comment on above: Performed By: #### P THI, VITD, B1WB ####[facility] [address], [place] [phone] LDL:HDL Ratio 1.98 Normal <2.54 [facility] Comment on above: Result Comment: Refe rence: 1. National Cholesterol Education Program ATP III Guideline At-A-Glance Quick Desk Reference: National Heart, Lung, and Blood [facility]. National Institutes of Health. 2001: NIH Publication No. 01-3305. 2. An International Atherosclerosis Society position paper: global recommendations for the management of dyslipidemia: executive summary, Atherosclerosis. 2014: 232(2):410-413. Performed By: #### P THI, VITD, B1WB ####[facility] [place] [phone] Non HDL Cholesterol 131 mg/dL High <130 [facility] Comment on above: Performed By: #### P THI, VITD, B1WB ####[address] [place] [phone] TC:HDL Ratio 3.30 Normal <5.10 [facility] Comment on above: Performed By: #### P THI, VITD, B1WB ####[address] [place] [phone] Triglyceride [Mass/Vol] 88 mg/dL Normal <150 [facility] Comment on above: Result Comment: <150 mg/dL, Normal 150-199 mg/dL, Borderline high 200-499 mg/dL, High >499 mg/dL, Very high Performed By: #### P THI, VITD, B1WB ####[address] [place], [place] [phone] VLDL Cholesterol 18 mg/dL Normal <30 [facility] Comment on above: Performed By: #### P THI, VITD, B1WB ####[address] [phone] Magnesiumon 05-26-2020 Magnesium [Mass/Vol] 2.0 mg/dL Normal 1.7-2.6 [facility] NURSING PROGon 05-26-2020 NURSING PROG HNO ID: [id number] Author: Tacho (Rn) BRANDIE Marr Service: ? Author Type: Registered Nurse Type: Nursing Progress Note Filed: 05/27/2020 4:29 AM Note Text: Nursing Progress Note Patient Name: Maricarmen Anderson Patient Location: [place] Daily Note: 1935 Assumed care of patient, received report. Assessment complete, see NPR. 2134 Paged datawarehouse developer: [phone], Paiger- Patient requesting IV fluids rate decrease. Thanks, Kp @ [phone] IV fluids reduced to 75 ml/hr will monitor how patient tolerates and notify LIP in AM. 0000 IVF reduced to 50 ml/hr per patient request. 0245 Tube feeding restarted at 10 ml/hr start rate, pt previously was not tolerating feeding. 0400 Pt observed asleep in bed, NAD, IVF and tube feed running. This note was completed by: Tacho Marr RN [facility] NURSING PROG HNO ID: [id number] Author: Bibi (Rn) BRANDIE Freeman Service: Nursing Author Type: Registered Nurse Type: Nursing Progress Note Filed: 05/26/2020 7:34 PM Note Text: Nursing Progress Note Patient Name: Maricarmen Anderson Patient [place]: [place] Note:0800am report from cement worker nurse. Pt awake resting in bed. 0955am dietican rounding at bedside. Tf on hold for ct of abd/pelvis. 1140am dr. eng has rounded per pt. 1150am covid sent as ordered 1325pm pt delcines on starting tube feeding until ct results available. 1603pm pt awake resting in bed. All blood work collected and sent to lab as ordered. 1934pm report to cement worker nurse. This note was completed by: Bibi Freeman RN [facility] NURSING PROG HNO ID: [id number] Author: Rosibel VasquezRn) BRANDIE Bonilla Service: Nursing Author Type: Registered Nurse Type: Nursing Progress Note Filed: 05/26/2020 4:08 AM Note Text: Nursing Progress Note Patient Name: Maricarmen Anderson [facility] [place] Daily Note: 2226 Nutren 1.5 hung at 20 ml/hr. 0000 Pt states she cannot tolerate tube feed. She is nauseous. Notified president & founder. OK to hold TF for now. This note was completed by: Rosibel Bonilla RN [facility] NUTRITIONon 05-26-2020 NUTRITION HNO ID: [id number] Author: Molly Vázquez Service: Nutrition Therapy Author [...] Estimated kilocalorie needs: 2040 Calorie Calculation Method: [place] (with activity factor)(1.2 AF) Estimated [...] nausea and vomiting. She is from the [facility]. She did call her surgeon's service and advised her to come to [facility] to be evaluated. Patient does have a J-tube. She is able to flush her J-tube. However, the patient then vomits. She vomits after oral or J-tube feedings. Again, the patient does not have a stomach. She denies blood in the vomit. It is nonbilious. The patient is on Percocet at home. Describes a traumatic brain injury in January and was seen in the [facility]. She is now on prophylactic seizure medications [...] Assess/15 min 4 units SIGNATURE: Molly Vázquez, ,RD,LD,MCLAREN FLINT PATIENT NAME: Maricarmen Anderson DATE: May 26, 2020 TIME: 11:53 AM PAGER: [phone] Normal [facility] PTH, Intacton 05-26-2020 PTH, Intact 127 pg/mL High 15-65 [facility] Comment on above: Performed By: #### P THI, VITD, B1WB ####[facility] [place], [place] [phone] TSHon 05-26-2020 TSH Qn 1.040 m[IU]/L Normal 0.270-4.200 [facility] Comment on above: Result Comment: If [...] Leone, et al. 2017 Guidelines of the [place] Thyroid Association for the Diagnosis and Management of Thyroid Disease during and the . Thyroid, 2017:27:3:315-389. Performed By: #### P THI, VITD, B1WB ####[place] [id number] [place], [place] [phone] Vitamin B1, Whole Blon 05-26 Vitamin B1 (TDP), WB 56.6 nmol/L Low 84.0-213.0 [facility] Comment on above: Result Comment: This assay measures the concentration of thiamine diphosphate (TDP), the primary active form of vitamin B1. Approximately 90 percent of vitamin B1 present in whole blood is TDP. Thiamine and thiamine monophosphate, which comprise the remaining 10 percent, are not measured. This test was developed and its performance characteristics determined by [facility]'s Duog Whitaker [facility] ( [facility]). It has not been cleared or approved by the FDA. [facility] is regulated under CLIA as qualified to perform high complexity testing. This test is used for clinical purposes. It should not be regarded as investigational or for research. Performed By: #### P THI, VITD, B1WB ####[place] [id number] [place], [place] [phone] Vitamin B12on 05-26-2020 Cobalamin (Vitamin B12) [Mass/Vol] 247 pg/mL Normal 232-1245 [facility] Comment on above: Performed By: #### P THI, VITD, B1WB ####[place] [address] [place], [place] [phone] Vitamin D 25 Hydroxyon 05-26 Vitamin D 25 Hydroxy 9.6 ng/mL Low 31.0-80.0 [facility] Comment on above: Result Comment: Clas sification of 25 [place] Vitamin D status: Insufficiency/Moderate Deficiency: < or = 30 ng/mL Sufficiency/Optimal Levels: 31 to 80 ng/mL Toxicity: > 100 ng/mL Test performed by chemiluminescent immunoassay. Performed By: #### P THI, VITD, B1WB ####[place] [address] [place], [place] [phone] CBC and Differentialon 05-25 Abs Baso 0.03 k/uL Normal <0.11 [facility] Abs [place] 0.28 k/uL Normal <0.[address] [facility] Abs Neut 2.58 k/uL Normal 1.45-7.[address] [facility] Absolute nRBC <0.01 Normal <0.[address] [facility] Basophils/100 WBC (Bld) 0.7 % Normal [facility] DTYPE Auto Diff Normal [facility] Eosinophils (Bld) [#/Vol] 0.04 10*3/uL Normal <0.[address] [facility] Eosinophils/100 WBC (Bld) 1.0 % Normal [facility] Erythrocyte distribution width (RBC) [Ratio] 13.4 % Normal 11.5-15.[address] [facility] Hematocrit (Bld) [Volume fraction] 26.8 % Low 36.0-46.0 [facility] Hemoglobin (Bld) [Mass/Vol] 8.6 g/dL Low 11.5-15.5 [facility] Lymphocytes (Bld) [#/Vol] 1.08 10*3/uL Normal 1.00-4.[address] [facility] Lymphocytes/100 WBC (Bld) 26.9 % Normal [facility] MCH 27.7 pG Normal 26.0-34.0 [facility] MCHC (RBC) [Mass/Vol] 32.1 g/dL Normal 30.5-36.0 [facility] MCV (RBC) [Entitic vol] 86.2 fL Normal 80.0-100.0 [facility] Monocytes/100 WBC (Bld) 7.0 % Normal [facility] Neutrophils/100 WBC (Bld) 64.4 % Normal [facility] NRBCs 0.0 /100 WBC Normal 0 [facility] Platelet mean volume (Bld) [Entitic vol] 10.4 fL Normal 9.0-12.7 [facility] Platelets (Bld) [#/Vol] 170 10*3/uL Normal 150-[address] [facility] RBC (Bld) [#/Vol] 3.11 10*6/uL Low 3.90-5.20 [facility] WBC (Bld) [#/Vol] 4.02 10*3/uL Normal 3.70-11.00 [facility] CC Profile Ulises SP,MM,EUC For SPT,MMH,EUC use onlyon 05-25-2020 [place] Test Venous Normal [facility] Attempts 1 Normal [facility] Base Excess 3 mmol/L Normal [facility] Comment on above: Result Comment: -2 T O 2 Body temperature 98.6 [degF] Normal [facility] Calcium [Moles/Vol] 1.20 mmol/L Normal 1.09-1.30 [facility] Chloride [Moles/Vol] 108 mmol/L Normal 50-400 [facility] Device None seen Normal [facility] Drawsite Venous Normal [facility] HCO3 (Bld) [Moles/Vol] 28 mmol/L High 22-[address] [facility] Hemoglobin (Bld) [Mass/Vol] 8.6 g/dL Low 12-18 [facility] Lactate [Moles/Vol] 1.3 mmol/L Normal 0.7-2.5 [facility] pCO2 46 mm Hg Normal 41-51 [facility] pH (Bld) 7.40 [pH] Normal 7.32-7.[address] [facility] pO2 BELOW REPORTABLE RANGE Normal 35-[address] [facility] Potassium [Moles/Vol] 3.3 mmol/L Low 3.5-5.1 [facility] Sodium [Moles/Vol] 143 mmol/L Normal 136-146 [facility] CONSULTon 05-25-2020 CONSULT HNO ID: [id number] Author: Raleigh Srivastava DO Service: General Surgery [...] had a recent traumatic brain injury in [facility] and is on seizure medications now. PAST MEDICAL HISTORY: PAST MEDICAL HISTORY Diagnosis Date - Acute venous embolism and thrombosis of brachial vein (HCC) 2013 due to IV infiltrate, 2013, also on OCPs - Eosinophilic esophagitis - Gastroparesis - GERD (gastroesophageal reflux disease) - History of gastric bypass complications - Obesity, Class III, BMI 40-49.9 (morbid obesity) ([facility]) - Port-A-Cath in place patients [...] or palpitations GI: See HPI : Negative GEODESIST: Negative for abnormal vaginal bleeding, abnormal vaginal [...] CTA b/l, (more content not included)... Normal [facility] Comp Metabolic Panelon 05-25 Albumin [Mass/Vol] 3.8 g/dL Normal 3.5-5.0 [facility] ALP [Catalytic activity/Vol] 82 U/L Normal 34-123 [facility] ALT [Catalytic activity/Vol] 6 U/L Low 7-38 [facility] Anion gap [Moles/Vol] 10 mmol/L Normal 0-15 [facility] AST [Catalytic activity/Vol] 14 U/L Normal 13-35 [facility] Bilirubin [Mass/Vol] 0.3 mg/dL Normal 0.2-1.3 [facility] Calcium [Mass/Vol] 8.9 mg/dL Normal 8.5-10.2 [facility] Chloride [Moles/Vol] 107 mmol/L High 97-105 [facility] CO2 [Moles/Vol] 26 mmol/L Normal 22-30 [facility] Creatinine [Mass/Vol] 0.62 mg/dL Normal 0.58-0.96 [facility] eGFR- Amer. >60 Normal [facility] eGFR-All Other Races >60 Normal [facility] Comment on above: Result Comment: eGFR (Estimated [...] GFR. Glucose [Mass/Vol] 88 mg/dL Normal 74-99 [facility] Potassium [Moles/Vol] 3.3 mmol/L Low 3.7-5.1 [facility] Protein [Mass/Vol] 6.4 g/dL Normal 6.3-8.0 [facility] Sodium [Moles/Vol] 143 mmol/L Normal 136-144 [facility] Urea nitrogen [Mass/Vol] 10 mg/dL Normal 7-21 [facility] ED NOTEon 05-25-2020 ED NOTE HNO ID: [id number] Author: Chavo Maravilla RN Service: ? Author Type: Registered Nurse Type: ED Notes Filed: 05/25/2020 6:05 PM Note Text: Pt to the floor with caregiver, in stable condition, in NAD. Pt's infusion running without difficulty and pt belongings at bedside. [facility] ED NOTE HNO ID: [id number] Author: Chavo Maravilla RN Service: ? Author Type: Registered Nurse Type: ED Notes Filed: 05/25/2020 6:01 PM Note Text: Report given to Ceasar DIEGO, all questions addressed at this time. [facility] ED NOTE HNO ID: [id number] Author: Chavo Maravilla RN Service: ? Author Type: Registered Nurse Type: ED Notes Filed: 05/25/2020 3:27 PM Note Text: RT notified of CCVBG [facility] ED NOTE HNO ID: [id number] Author: Chavo Maravilla RN Service: ? Author [...] chest. Allergies reviewed and allergy band applied. [facility] ED NOTE HNO ID: [id number] Author: Marycarmen VasquezRn) BRANDIE Hunt Service: ? Author Type: Registered Nurse Type: ED Notes Filed: 05/25/2020 1:50 PM Note Text: Pt given cup to collect urine specimen [facility] ED NOTE HNO ID: [id number] Author: Flaquita (Medic) Charis Service: General Internal Medicine Author Type: Software Integrator and Fingerprint Expert Type: ED Notes Filed: 05/25/2020 1:43 PM Note Text: Pt states she sometimes has a rapid heart rate when she stands to walk. States she had a pacemaker placed in March 2020 at . EKG performed and given to Dr. Moreno [facility] ED NOTE HNO ID: [id number] Author: Marycarmen (Rn) BRANDIE Hunt Service: ? Author Type: Registered Nurse Type: ED Notes Filed: 05/25/2020 12:43 PM Note Text: Pt c/o nausea, vomiting, ABD pain for the past 2 weeks. She has a J tube, and when ever she pours liquid into it, she vomits. [facility] ED PROV NOTEon 05-25-2020 ED PROV NOTE HNO ID: [id number] Author: Dennis Spence DO Service: Emergency Medicine [...] nausea and vomiting. She is from the [facility]. She did call her surgeon's service and advised her to come to [facility] to be evaluated. Patient does have a J-tube. She is able to flush her J-tube. However, the patient then vomits. She vomits after oral or J-tube feedings. Again, the patient does not have a stomach. She denies blood in the vomit. It is nonbilious. The patient is on Percocet at home. Describes a traumatic brain injury in January and was seen in the [place] area. She is now on prophylactic seizure [...] Obesity, Class III, BMI 40-49.9 (morbid obesity) ([facility]) - Port-A-Cath in place patients [...] CARE PROFILE-VE (more content not included)... Normal [facility] HOSPon 05-25-2020 HOSP Patient:Lea Anderson MRN: Height:5' [...] nausea and vomiting. She is from the [facility]. She did call her surgeon's service and advised her to come to [facility] to be evaluated. Patient does have a J-tube. She is able to flush her J-tube. However, the patient then vomits. She vomits after oral or J-tube feedings. Again, the patient does not have a stomach. She denies blood in the vomit. It is nonbilious. The patient is on Percocet at home. Describes a traumatic brain injury in January and was seen in the [facility]. She is now on prophylactic seizure medications [...] thrombosis of (more content not included)... Normal [facility] Lipaseon 05-25-2020 Lipase [Catalytic activity/Vol] 54 U/L Normal 16-61 [facility] Magnesiumon 05-25-2020 Magnesium [Mass/Vol] 1.9 mg/dL Normal 1.7-2.6 [facility] NURSING PROGon 05-25-2020 NURSING PROG HNO ID: [id number] Author: Mitchel VasquezRn) BRANDIE Larry Service: Nursing Author Type: Registered Nurse Type: Nursing Progress Note Filed: 05/25/2020 6:27 PM Note Text: Nursing Progress Note Patient Name: Maricarmen Anderson Patient Location: [place] [address] [address] 1815 patient admitted to room [facility]. Pain reported in upper abdomen 03/31 at this time. Nausea also reported. Calling primary MD for admission orders. Patient has j-tube and uses osmolite when able. No other distress noted at this time. Patient denies SOB or CP. This note was completed by: Mitchel Larry RN [facility] NURSING PROG HNO ID: [id number] Author: Michelle VasquezRn) Page, RN Service: Nursing Author Type: Registered Nurse Type: Nursing Progress Note Filed: 05/25/2020 7:14 PM Note Text: Nursing Progress Note Patient Name: Maricarmen Anderson [facility] [place] Transfer Note: Patient transferred into room/unit 721, bed 2 from ED in stable condition. Actions taken: No further actions taken at this time. Will continue to monitor and check with patient. 1912 Nursing admission database completed; MEDICAL SALES ASSOCIATE medication list updated. This note was completed by: Michelle Zhang, RN Normal [facility] Urinalysis with Microscopico n 05-25-2020 Bacteria 1+ /HPF Critically abnormal Negative [facility] Bilirubin, Urine Negative Normal Negative [facility] Cast SEE COMMENT Normal 0 [facility] Comment on above: Result Comment: 0 Clarity (U) Slightly Cloudy Critically abnormal Clear [facility] Color (U) Yellow Normal Yellow [facility] Crystals LM Nom (Urine sed) SEE COMMENT Critically abnormal Negative [facility] Comment on above: Result Comment: 3+ Calcium Oxalate Glucose Ql (U) Negative Normal Negative [facility] Hemoglobin/Blood,Ur Negative Normal Negative [facility] Ketones Ql (U) Trace Critically abnormal Negative [facility] Leukest Trace Critically abnormal Negative [facility] Nitrite Ql (U) Negative Normal Negative [facility] pH (U) 6.0 [pH] Normal 5.0-8.0 [facility] Protein, Urine Negative Normal Negative [facility] RBC 0-3 Normal 0-3 [facility] Specific Ransom, Ur 1.025 Normal 1.005-1.030 [facility] Urobilinogen Qn (U) 1.0 {José'U}/dL Normal 0.2-1.0 [facility] WBC 0-5 Normal 0-5 [facility] SLEEP CENTER REPORTon 2019 SLEEP CENTER REPORT [address] [place] [address] SLEEP STUDY REPORT PATIENT NAME: MARICARMEN ANDERSON : 1980 MED REC NO: [id number] ROOM: ACCOUNT NO: [id number] ADMIT DATE: 01/24/2020 PROVIDER: Roseline Decker SLEEP [...] Please correlate clinically. ROSELINE DECKER ND/V_TTNER_T Doc#: [id number] CC: Roseline Decker Normal [facility] Basic Metabolic Panlon 01-01 Anion gap [Moles/Vol] 5 mmol/L Normal 0-15 [facility] Calcium [Mass/Vol] 9.2 mg/dL Normal 8.5-10.2 [facility] Chloride [Moles/Vol] 106 mmol/L High 97-105 [facility] CO2 [Moles/Vol] 26 mmol/L Normal 22-30 [facility] Creatinine [Mass/Vol] 0.81 mg/dL Normal 0.58-0.96 [facility] Glucose [Mass/Vol] 106 mg/dL High 74-99 [facility] Potassium [Moles/Vol] 3.8 mmol/L Normal 3.7-5.1 [facility] Sodium [Moles/Vol] 137 mmol/L Normal 136-144 [facility] Urea nitrogen [Mass/Vol] 9 mg/dL Normal 7-21 [facility] CASE MANAGEMon 01-02-2020 CASE MANAGEM HNO ID: [id number] Author: Anaid (Rn) BRANDIE Valencia Service: ? [...] Physician Name/Phone: Dr. Sotelo Other Caregiver Name/Phone: [employer] TRANSPORTATION ARRANGEMENTS: Transportation Arrangements: Car ADDITIONAL CONTACT RESOURCES: None Patient surgically cleared for discharge and being discharged to home today on enteral tube feedings. [employer] updated and orders to resume tube feedings sent. SIGNATURE: Anaid Valencia RN PATIENT NAME: Maricarmen Murrieta Justin DATE: January 02, 2020 TIME: 1:14 PM PAGER/CONTACT #: [phone] [facility] CNDSon 01-02-2020 CNDS HNO ID: [id number] Author: Clemente Eng Service: General Surgery Author [...] Out FOLLOW-UP APPOINTMENTS ALREADY SCHEDULED WITH A [facility] PROVIDER: No future appointments. ALLERGIES Allergen [...] DATE: January 02, 2020 TIME: 12:33 PM [facility] NURSING PROGon 01-02-2020 NURSING PROG HNO ID: [id number] Author: Kimmie VasquezRn) BRANDIE Galo Service: Nursing Author Type: Registered Nurse Type: Nursing Progress Note Filed: 01/02/2020 12:27 PM Note Text: Nursing Progress Note Patient Name: Maricarmen Anderson [place] Daily Note: 729: received report from [...] was completed by: Kimmie Galo RN Normal [facility] Basic Metabolic Panlon 12-31 Anion gap [Moles/Vol] 6 mmol/L Normal 0-15 [facility] Calcium [Mass/Vol] 9.0 mg/dL Normal 8.5-10.2 [facility] Chloride [Moles/Vol] 105 mmol/L Normal 97-105 [facility] CO2 [Moles/Vol] 26 mmol/L Normal 22-30 [facility] Creatinine [Mass/Vol] 0.73 mg/dL Normal 0.58-0.96 [facility] Glucose [Mass/Vol] 92 mg/dL Normal 74-99 [facility] Potassium [Moles/Vol] 3.7 mmol/L Normal 3.7-5.1 [facility] Sodium [Moles/Vol] 137 mmol/L Normal 136-144 [facility] Urea nitrogen [Mass/Vol] 8 mg/dL Normal 7-21 [facility] NURSING PROGon 01-01-2020 NURSING PROG HNO ID: [id number] Author: Silvia (Rn) BRANDIE Marquez Service: ? Author Type: Registered Nurse Type: Nursing Progress Note Filed: 01/02/2020 3:03 AM Note Text: Nursing Progress Note Patient Name: Maricarmen [place]: 1905: Received report from BRANDIE [...] note was completed by: Silvia Marquez RN [facility] NURSING PROG HNO ID: [id number] Author: Khalida Mendes RN Service: Nursing Author Type: Registered Nurse Type: Nursing Progress Note Filed: 01/01/2020 7:23 PM Note Text: Nursing Progress Note Patient Name: Maricarmen [place] Note: 735 Resumed care for the patient, received updates from Tiny DIEGO. 0745 Tube feed increased to 40 cc/hr. 914 Assessment unchanged as charted. Safety maintained. 1400 Tube feed increased to 50 cc/hr, patient tolerating them well. 1919 Report given to Silvia DIEGO. This note was completed by: Khalida Mendes RN [facility] ALLIED HEALTHon 12-31-2019 ALLIED HEALTH HNO ID: [id number] Author: Uzair Hurst (Tech) Service: Radiology Author Type: Fingerprint Expert Type: Allied Health Filed: 12/31/2019 12:47 AM [...] Hurst December 31, 2019 12:46 AM Normal [facility] Basic Metabolic Panlon 12-30 Anion gap [Moles/Vol] 8 mmol/L Normal 0-15 [facility] Calcium [Mass/Vol] 8.9 mg/dL Normal 8.5-10.2 [facility] Chloride [Moles/Vol] 105 mmol/L Normal 97-105 [facility] CO2 [Moles/Vol] 25 mmol/L Normal 22-30 [facility] Creatinine [Mass/Vol] 0.62 mg/dL Normal 0.58-0.96 [facility] eGFR- Amer. >60 Normal [facility] eGFR-All Other Races >60 Normal [facility] Comment on above: Result Comment: eGFR (Estimated [...] GFR. Glucose [Mass/Vol] 81 mg/dL Normal 74-99 [facility] Potassium [Moles/Vol] 3.6 mmol/L Low 3.7-5.1 [facility] Sodium [Moles/Vol] 138 mmol/L Normal 136-144 [facility] Urea nitrogen [Mass/Vol] 9 mg/dL Normal 7-21 [facility] CBCon 12-31-2019 Absolute nRBC <0.01 Normal <0.01 [facility] Erythrocyte distribution width (RBC) [Ratio] 13.2 % Normal 11.5-15.0 [facility] Hematocrit (Bld) [Volume fraction] 28.7 % Low 36.0-46.0 [facility] Hemoglobin (Bld) [Mass/Vol] 9.3 g/dL Low 11.5-15.5 [facility] MCH 29.9 pG Normal 26.0-34.0 [facility] MCHC (RBC) [Mass/Vol] 32.4 g/dL Normal 30.5-36.0 [facility] MCV (RBC) [Entitic vol] 92.3 fL Normal 80.0-100.0 [facility] Platelet mean volume (Bld) [Entitic vol] 10.7 fL Normal 9.0-12.7 [facility] Platelets (Bld) [#/Vol] 151 10*3/uL Normal 150-400 [facility] RBC (Bld) [#/Vol] 3.11 10*6/uL Low 3.90-5.20 [facility] WBC (Bld) [#/Vol] 5.08 10*3/uL Normal 3.70-11.00 [facility] CBC and Differentialon 12-30 Abs Baso 0.03 k/uL Normal <0.11 [facility] Abs [place] 0.49 k/uL Normal <0.87 [facility] Abs Neut 3.99 k/uL Normal 1.45-7.50 [facility] Absolute nRBC <0.01 Normal <0.01 [facility] Basophils/100 WBC (Bld) 0.5 % Normal [facility] DTYPE Auto Diff Normal [facility] Eosinophils (Bld) [#/Vol] 0.04 10*3/uL Normal <0.46 [facility] Eosinophils/100 WBC (Bld) 0.6 % Normal [facility] Erythrocyte distribution width (RBC) [Ratio] 13.1 % Normal 11.5-15.0 [facility] Hematocrit (Bld) [Volume fraction] 30.3 % Low 36.0-46.0 [facility] Hemoglobin (Bld) [Mass/Vol] 9.8 g/dL Low 11.5-15.5 [facility] Lymphocytes (Bld) [#/Vol] 1.70 10*3/uL Normal 1.00-4.[address] [facility] Lymphocytes/100 WBC (Bld) 27.2 % Normal [facility] MCH 29.6 pG Normal 26.0-34.0 [facility] MCHC (RBC) [Mass/Vol] 32.3 g/dL Normal 30.5-36.0 [facility] MCV (RBC) [Entitic vol] 91.5 fL Normal 80.0-100.0 [facility] Monocytes/100 WBC (Bld) 7.8 % Normal [facility] Neutrophils/100 WBC (Bld) 63.9 % Normal [facility] NRBCs 0.0 /100 WBC Normal 0 [facility] Platelet mean volume (Bld) [Entitic vol] 11.0 fL Normal 9.0-12.7 [facility] Platelets (Bld) [#/Vol] 177 10*3/uL Normal 150-400 [facility] RBC (Bld) [#/Vol] 3.31 10*6/uL Low 3.90-5.20 [facility] WBC (Bld) [#/Vol] 6.26 10*3/uL Normal 3.70-11.[address] [facility] [address] ABD/PEL W IVCONon 12-30-[address] ABD/PEL W IVCON * * *Final Report* * * DATE OF EXAM: Dec 31 2019 12:49AM [facility] [place] ABD/PEL W IVCON / [...] Dec 31 2019 1:31AM EST [id number] Normal [facility] Comp Metabolic Panelon 12-30 Albumin [Mass/Vol] 3.8 g/dL Normal 3.5-5.0 [facility] ALP [Catalytic activity/Vol] 70 U/L Normal 34-123 [facility] ALT [Catalytic activity/Vol] 9 U/L Normal 7-38 [facility] Anion gap [Moles/Vol] 7 mmol/L Normal 0-15 [facility] AST [Catalytic activity/Vol] 15 U/L Normal 13-35 [facility] Bilirubin [Mass/Vol] 0.3 mg/dL Normal 0.2-1.3 [facility] Calcium [Mass/Vol] 9.1 mg/dL Normal 8.5-10.2 [facility] Chloride [Moles/Vol] 105 mmol/L Normal 97-105 [facility] CO2 [Moles/Vol] 26 mmol/L Normal 22-30 [facility] Creatinine [Mass/Vol] 0.60 mg/dL Normal 0.58-0.96 [facility] eGFR- Amer. >60 Normal [facility] eGFR-All Other Races >60 Normal [facility] Comment on above: Result Comment: eGFR (Estimated [...] GFR. Glucose [Mass/Vol] 84 mg/dL Normal 74-99 [facility] Potassium [Moles/Vol] 3.4 mmol/L Low 3.7-5.1 [facility] Protein [Mass/Vol] 6.2 g/dL Low 6.3-8.0 [facility] Sodium [Moles/Vol] 138 mmol/L Normal 136-144 [facility] Urea nitrogen [Mass/Vol] 11 mg/dL Normal 7-21 [facility] Coronavirus 2019on 0 SARS-CoV-2 (COVID-19) RNA CRISTINA+probe Ql (Unsp spec) Nasopharyngeal Swab Normal [facility] Comment on above: Performed By: #### P REALBernard, TRANSF #### [place] [address] SARS-CoV-2 (COVID-19) RNA CRISTINA+probe Ql (Unsp spec) Negative Normal Negative for COVID19 (SARS CoV2) by PCR. [facility] Comment on above: Result Comment: This test was developed and its performance characteristics determined by [facility]. This test has been authorized by FDA [...] TRANSF #### [facility] [address] [place], [place] [address] ED NOTEon 12-31-2019 ED NOTE HNO ID: [id number] Author: Paul VasquezRn) BRANDIE Culver Service: Emergency Medicine Author Type: Registered Nurse Type: ED Notes Filed: 12/31/2019 12:28 AM Note Text: Patient to CT and then stable for admission to 9th floor, report called to BRANDIE Villaseñor. Patient transported with medic, stable at time of transfer from ED [facility] ED NOTE HNO ID: [id number] Author: Paul Coffey) BRANDIE Culver Service: Emergency Medicine Author Type: Registered Nurse Type: ED Notes Filed: 12/30/2019 11:43 PM Note Text: Patient finished contrast, CT aware [facility] ED NOTE HNO ID: [id number] Author: Paul Coffey) BRANDIE Culver Service: Emergency Medicine Author Type: Registered Nurse Type: ED Notes Filed: 12/30/2019 10:55 PM Note Text: Urine obtained and sent [facility] ED NOTE HNO ID: [id number] Author: Paul Coffey) BRANDIE Culver Service: Emergency Medicine Author Type: Registered Nurse Type: ED Notes Filed: 12/30/2019 10:55 PM Note Text: Covid swab obtained, placed on ice and walked to lab by TAMMIE [facility] ED PROV NOTEon 12-31-2019 ED PROV NOTE HNO ID: [id number] Author: Milton Kate MD Service: Emergency Medicine [...] 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 Normal 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 Normal [facility] Lipaseon 12-31-2019 Lipase [Catalytic activity/Vol] 33 U/L Normal 16-[address] [facility] Magnesiumon 12-31-2019 Magnesium [Mass/Vol] 1.8 mg/dL Normal 1.7-2.6 [facility] NURSING PROGon 12-31-2019 NURSING PROG HNO ID: [id number] Author: Tiny (Rn) BRANDIE Chamberlain Service: Nursing [...] note was completed by: Tiny Chamberlain RN [facility] NURSING [facility] ID: [id number] Author: Khalida Mendes RN Service: Nursing Author Type: Registered Nurse Type: Nursing Progress Note Filed: 12/31/2019 7:28 PM Note Text: Nursing Progress Note Patient Name: Maricarmen [place]: 714 Received report from Sheyla DIEGO. 0850 Assessment completed as charted. Patient complains of nausea and pain. Call light within reach and bed in lowest position will continue to monitor. 1100 Diet advanced to full liquids. 1115 Tube feed started. 1730 Tube feed increased to 20 cc/hr. 1924 Report given to Tiny DIEGO. This note was completed by: Khalida Mendes RN [facility] NURSING [facility] ID: [id number] Author: Sheyla Coffey)Polina Martinez Service: ? Author Type: Registered Nurse Type: Nursing Progress Note Filed: 12/31/2019 5:17 AM Note Text: Nursing Progress Note Patient Name: Maricarmen Anderson [place] Transfer Note: Patient transferred into room/unit 906 in stable condition. Actions taken: No futher actions taken at this time. Will continue to monitor and check with patient. Patient belongings with patient This note was completed by: Sheyla Martinez RN [facility] NURSING PROG HNO ID: [id number] Author: Sheyla Martinez Service: ? Author Type: Registered Nurse Type: Nursing Progress Note Filed: 12/31/2019 5:16 AM Note Text: Nursing Progress Note Patient Name: Maricarmen Anderson [facility] [place] Daily Note: 0027 received report from Paul WILSON, patient going to CT before coming to floor 0045 patient on floor 0048assessment complete, see NPR. Patient's belongings, call light are with in reach. Bed is locked and in lowest position. Patient in no distress at this time. This note was completed by: Sheyla Martinez RN [facility] NUTRITIONon 12-31-2019 NUTRITION HNO ID: [id number] Author: Molly Vázquez Service: Nutrition Therapy Author Type: Registered Dietitian Type: Nutrition Filed: 12/31/2019 11:54 AM Note Text: NUTRITION THERAPY INITIAL ASSESSMENT SERVICE DATE: 12/31/2019 SERVICE TIME: 11:52 AM Nutrition Assessment: Recommended Malnutrition Diagnosis: No Malnutrition Identified Nutrition Diagnosis: Problem: Suboptimal protein/energy intake Related to: Inability to consume sufficient nutrients As evidenced by: Patient/family self-report;Nausea;Vomiti ng Estimated kilocalorie needs: 5078-1440 Calorie Calculation Method: 15-20 kcals/kg Estimated protein needs (grams): 71-89 Grams protein determined by: 1.2-1.5 g/kg;[place] Body Weight Care Plan: Continue current diet [...] of Inflammation: Chronic condition SIGNATURE: Molly Vázquez, MS,RD,LD,[facility] PATIENT NAME: Maricarmen Anderson DATE: December 31, 2019 TIME: 11:51 AM PAGER: [phone] Normal [facility] Phosphoruson 12-31-2019 Phosphate [Mass/Vol] 3.7 mg/dL Normal 2.7-4.8 [facility] Prealbuminon 12-31-2019 Prealbumin [Mass/Vol] 20 mg/dL Normal 17-36 [facility] Comment on above: Performed By: #### P REALB, TRANSF #### [facility] [address] [place] [address] Transferrinon 12-31-2019 Transferrin [Mass/Vol] 266 mg/dL Normal 200-[address] [facility] Comment on above: Performed By: #### P REALB, TRANSF #### [facility] [address] [place] [address] Urinalysis with Microscopico n 12-31-2019 Amorphous Crystal 2+ Normal [facility] Bacteria 4+ /HPF Critically abnormal Negative [facility] Bilirubin, Urine Negative Normal Negative [facility] Cast SEE COMMENT Normal 0 [facility] Comment on above: Result Comment: 0 Clarity (U) Cloudy Critically abnormal Clear [facility] Color (U) Yellow Normal Yellow [facility] Epithelial cells LM Ql (Urine sed) SEE COMMENT Critically abnormal Occasional [facility] Comment on above: Result Comment: 4+ Squamous Epithelial Cells Glucose Ql (U) Negative Normal Negative [facility] Hemoglobin/Blood,Ur Negative Normal Negative [facility] Ketones Ql (U) Trace Critically abnormal Negative [facility] Leukest 2+ Critically abnormal Negative [facility] Nitrite Ql (U) Negative Normal Negative [facility] pH (U) 7.0 [pH] Normal 5.0-8.0 [facility] Protein, Urine Negative Normal Negative [facility] RBC 0-3 Normal 0-[address] [facility] Specific Ransom, Ur 1.025 Normal 1.005-1.030 [facility] Urobilinogen Qn (U) 1.0 {José'U}/dL Normal 0.2-1.[address] [facility] WBC 6-10 Critically abnormal 0-[address] [facility] PROGRESSon 09-19-2019 PROGRESS HNO ID: [id number] Author: Emelia Baldwin Service: ? Author Type: [...] 6 hours as needed. OBJECTIVE: PHYSICAL EXAM: [facility] 05/18/2019 GENERAL APPEARANCE: Well nourished, well [...] TIME: 1:00 PM PAGER: Emelia Baldwin MD [facility] 09-13-2019 [facility] Telephone (NSFRVW) ----- PAIGEMARICARMEN Johnson ([id number]) 1980 [facility] Date Time Provider Department 09/13/19 EMELIA BALDWIN [employer] During your visit today, we recorded the following information about you: ShanaChristian Ann Pss 09/13/2019 3:55 PM Signed Patient has been identified by name and date of : Yes Type of form: Long-Term Disability Form received via: Fax When form is completed, fax form to fax number provided. [phone] Form has been forwarded to: Nurse Robert Ann [facility] Ángela Luis PA-C 09/14/2019 8:46 AM Signed [...] 09/20/2019 2:30 PM Signed Per Duane at [facility] at [phone] what is the status of the [facility]ci disability forms sent to us? 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 [Other] Prescriptions as of 09/13/2019 Sig: [...] Encounter Status:Closed by YONG PADILLA on 09/16/19 [facility] 05-13-2019 [facility] HNO ID: [id number] Author: Uzair Angulo (Tech) Service: Radiology Author Type: Fingerprint Expert Type: Allied Health Filed: 05/13/2019 10:22 AM [...] King May 13, 2019 10:22 AM Normal [facility] MRI CERVICAL SPINE WO IVCONo n 05-13-2019 MRI CERVICAL SPINE WO IVCON * * *Final Report* * * DATE OF EXAM: May 13 2019 10:50AM [facility] [id number] - MRI CERVICAL SPINE WO [...] vertebrae with counting from the craniocervical junction. [employer] Operator: LISA Transcribe Date/Time: May 13 2019 12:52P Dictated by : JON OSBORNE MD This examination was interpreted and the report reviewed and electronically signed by: JON OSBORNE MD on May 13 2019 1:16PM EST [id number] Vital Signs Date Time Vital Sign Value Performing Clinician Facility 06-10-2024 09:33-0500 Body height 167.64 cm Viktor Sotelo MD Work Phone: [facility] 06-10-2024 09:33-0500 Body mass index (BMI) [Ratio] 43.4 kg/m2 Viktor Sotelo MD Work Phone: [facility] 06-10-2024 09:33-0500 Body weight 122.01 kg Viktor Sotelo MD Work Phone: [facility] 06-10-2024 09:33-0500 Diastolic blood pressure 66 mm[Hg] Viktor Sotelo MD Work Phone: [facility] 06-10-2024 09:33-0500 Heart rate 93 /min Viktor Sotelo MD Work Phone: [facility] 06-10-2024 09:33-0500 Systolic blood pressure 93 mm[Hg] Viktor Sotelo MD Work Phone: [facility] 11-12-2023 13:23-0400 Body height 167.64 cm MD Viktor Sotelo Work Phone: [facility] 11-12-2023 13:23-0400 Body mass index (BMI) [Ratio] 41.1 kg/m2 MD Viktor Sotelo Work Phone: [facility] 11-12-2023 13:23-0400 Body weight 115.66 kg MD Viktor Sotelo Work Phone: [facility] 11-12-2023 13:23-0400 Diastolic blood pressure 73 mm[Hg] MD Viktor Sotelo Work Phone: [facility] 11-12-2023 13:23-0400 Heart rate 81 /min MD Viktor Sotelo Work Phone: [facility] 11-12-2023 13:23-0400 Systolic blood pressure 108 mm[Hg] MD Viktor Sotelo Work Phone: [facility] 01-21-2023 06:55-0400 Body height 167.64 cm MD Viktor Sotelo Work Phone: [facility] 01-21-2023 06:55-0400 Body weight 108.86 kg MD Viktor Sotelo Work Phone: [facility] 01-20-2023 08:36-0400 Body height 167.64 cm Viktor Sotelo Work Phone: [facility] Work Phone: 01-20-2023 08:36-0400 Body mass index (BMI) [Ratio] 39.06 kg/m2 Viktor Sotelo Work Phone: [facility] Work Phone: 01-20-2023 08:36-0400 Body surface area Derived from formula 2.17 m2 Viktor Sotelo Work Phone: [facility] Work Phone: 01-20-2023 08:36-0400 Body weight 109.77 kg Viktor Sotelo Work Phone: [facility] Work Phone: 01-20-2023 08:36-0400 Diastolic blood pressure 80 mm[Hg] Viktor Sotelo Work Phone: [facility] Work Phone: 01-20-2023 08:36-0400 Respiratory rate 60 /min Viktor Sotelo Work Phone: [facility] Work Phone: 01-20-2023 08:36-0400 Systolic blood pressure 122 mm[Hg] Viktor Sotelo Work Phone: [facility] Work Phone: 12-15-2022 09:00-0400 Body weight 109.04 kg MD Viktor Sotelo Work Phone: [facility] 12-15-2022 07:30-0400 Body temperature 97.9 [degF] MD Viktor Sotelo Work Phone: [facility] 12-15-2022 07:30-0400 Diastolic blood pressure 72 mm[Hg] MD Viktor Sotelo Work Phone: [facility] 12-15-2022 07:30-0400 Heart rate 81 /min MD Viktor Sotelo Work Phone: [facility] 12-15-2022 07:30-0400 SaO2% (BldA) [Mass fraction] 100 % MD Viktor Sotelo Work Phone: [facility] 12-15-2022 07:30-0400 Systolic blood pressure 115 mm[Hg] MD Viktor Sotelo Work Phone: [facility] 12-14-2022 20:18-0400 Respiratory rate 16 /min MD Viktor Sotelo Work Phone: [facility] 12-12-2022 13:58-0400 Body height 167.64 cm MD Viktor Sotelo Work Phone: [facility] 12-11-2022 20:49-0400 Diastolic blood pressure 87 mm[Hg] MD Viktor Sotelo Work Phone: [facility] 12-11-2022 20:49-0400 Heart rate 70 /min MD Viktor Soteol Work Phone: [facility] 12-11-2022 20:49-0400 Respiratory rate 18 /min MD Viktor Sotelo Work Phone: [facility] 12-11-2022 20:49-0400 SaO2% (BldA) [Mass fraction] 99 % MD Viktor Sotelo Work Phone: [facility] 12-11-2022 20:49-0400 Systolic blood pressure 132 mm[Hg] MD Viktor Sotelo Work Phone: [facility] 12-11-2022 17:43-0400 Body height 167.64 cm MD Viktor Sotelo Work Phone: [facility] 12-11-2022 17:43-0400 Body temperature 97.7 [degF] MD Viktor Sotelo Work Phone: [facility] 12-11-2022 17:43-0400 Body weight 108.86 kg MD Viktor Sotelo Work Phone: [facility] 11-01-2022 07:24-0400 Body temperature 97.6 [degF] MD Viktor Sotelo Work Phone: [facility] 11-01-2022 07:24-0400 Diastolic blood pressure 66 mm[Hg] MD Viktor Sotelo Work Phone: [facility] 11-01-2022 07:24-0400 Heart rate 67 /min MD Viktor Sotelo Work Phone: [facility] 11-01-2022 07:24-0400 Respiratory rate 16 /min MD Viktor Sotelo Work Phone: [facility] 11-01-2022 07:24-0400 SaO2% (BldA) [Mass fraction] 95 % MD Viktor Sotelo Work Phone: [facility] 11-01-2022 07:24-0400 Systolic blood pressure 104 mm[Hg] MD Viktor Sotelo Work Phone: [facility] 10-31-2022 14:36-0400 Body height 167.64 cm MD Viktor Sotelo Work Phone: [facility] 10-28-2022 19:02-0400 Body weight 110.67 kg MD Viktor Sotelo Work Phone: [facility] 10-28-2022 17:56-0400 Diastolic blood pressure 66 mm[Hg] MD Viktor Sotelo Work Phone: [facility] 10-28-2022 17:56-0400 Heart rate 57 /min MD Viktor Sotelo Work Phone: [facility] 10-28-2022 17:56-0400 Respiratory rate 16 /min MD Viktor Sotelo Work Phone: [facility] 10-28-2022 17:56-0400 SaO2% (BldA) [Mass fraction] 97 % MD Viktor Soetlo Work Phone: [facility] 10-28-2022 17:56-0400 Systolic blood pressure 132 mm[Hg] MD Viktor Sotelo Work Phone: [facility] 10-28-2022 14:47-0400 Body height 167.64 cm MD Viktor Sotelo Work Phone: [facility] 10-28-2022 14:47-0400 Body temperature 97.8 [degF] MD Viktor Sotelo Work Phone: [facility] 10-28-2022 14:47-0400 Body weight 111.25 kg MD Viktor Sotelo Work Phone: [facility] 10-18-2022 19:10-0400 Diastolic blood pressure 84 mm[Hg] MD Viktor Sotelo Work Phone: [facility] 10-18-2022 19:10-0400 Heart rate 71 /min MD Viktor Sotelo Work Phone: [facility] 10-18-2022 19:10-0400 Respiratory rate 18 /min MD Viktor Sotelo Work Phone: [facility] 10-18-2022 19:10-0400 SaO2% (BldA) [Mass fraction] 97 % MD Viktor Sotelo Work Phone: [facility] 10-18-2022 19:10-0400 Systolic blood pressure 141 mm[Hg] MD Viktor Sotelo Work Phone: [facility] 10-18-2022 16:53-0400 Body temperature 98 [degF] MD Viktor Sotelo Work Phone: [facility] 10-18-2022 16:51-0400 Body height 167.64 cm MD Viktor Sotelo Work Phone: [facility] 10-18-2022 16:51-0400 Body weight 112 kg MD Viktor Sotelo Work Phone: [facility] 09-28-2022 22:35-0400 Diastolic blood pressure 81 mm[Hg] MD Viktor Sotelo Work Phone: [facility] 09-28-2022 22:35-0400 Heart rate 97 /min MD Viktor Sotelo Work Phone: [facility] 09-28-2022 22:35-0400 Respiratory rate 18 /min MD Viktor Sotelo Work Phone: [facility] 09-28-2022 22:35-0400 SaO2% (BldA) [Mass fraction] 96 % MD Viktor Sotelo Work Phone: [facility] 09-28-2022 22:35-0400 Systolic blood pressure 131 mm[Hg] MD Viktor Sotelo Work Phone: [facility] 09-28-2022 21:15-0400 Body temperature 100.7 [degF] MD Viktor Sotelo Work Phone: [facility] 09-28-2022 19:07-0400 Body height 167.64 cm MD Viktor Sotelo Work Phone: [facility] 09-28-2022 19:07-0400 Body weight 114 kg MD Viktor Sotelo Work Phone: [facility] 09-07-2022 15:07-0400 Body temperature 97.8 [degF] MD Viktor Sotelo Work Phone: [facility] 09-07-2022 15:07-0400 Diastolic blood pressure 60 mm[Hg] MD Viktor Sotelo Work Phone: [facility] 09-07-2022 15:07-0400 Heart rate 78 /min MD Viktor Sotelo Work Phone: [facility] 09-07-2022 15:07-0400 SaO2% (BldA) [Mass fraction] 96 % MD Viktor Sotelo Work Phone: [facility] 09-07-2022 15:07-0400 Systolic blood pressure 100 mm[Hg] MD Viktor Sotelo Work Phone: [facility] 09-07-2022 07:30-0400 Respiratory rate 16 /min MD Viktor Sotelo Work Phone: [facility] 09-04-2022 14:15-0400 Body height 167.64 cm MD Viktor Sotelo Work Phone: [facility] 09-04-2022 02:40-0400 Body weight 111.13 kg MD Viktor Sotelo Work Phone: [facility] 08-13-2022 08:18-0500 Body temperature 98.1 [degF] MD Viktor Sotelo Work Phone: [facility] 08-13-2022 08:18-0500 Diastolic blood pressure 82 mm[Hg] MD Viktor Sotelo Work Phone: [facility] 08-13-2022 08:18-0500 Heart rate 60 /min MD Viktor Sotelo Work Phone: [facility] 08-13-2022 08:18-0500 Respiratory rate 16 /min MD Viktor Sotelo Work Phone: [facility] 08-13-2022 08:18-0500 SaO2% (BldA) [Mass fraction] 96 % MD Viktor Sotelo Work Phone: [facility] 08-13-2022 08:18-0500 Systolic blood pressure 126 mm[Hg] MD Viktor Sotelo Work Phone: [facility] 08-11-2022 21:50-0500 Body height 167.64 cm MD Viktor Sotelo Work Phone: [facility] 08-11-2022 21:50-0500 Body weight 114.75 kg MD Viktor Sotelo Work Phone: [facility] 08-05-2022 09:27-0500 Body temperature 98.1 [degF] MD Viktor Sotelo Work Phone: [facility] 08-05-2022 09:27-0500 Respiratory rate 16 /min MD Viktor Sotelo Work Phone: [facility] 08-05-2022 09:07-0500 Diastolic blood pressure 74 mm[Hg] MD Viktor Sotelo Work Phone: [facility] 08-05-2022 09:07-0500 Heart rate 83 /min MD Viktor Sotelo Work Phone: [facility] 08-05-2022 09:07-0500 Systolic blood pressure 124 mm[Hg] MD Viktor Sotelo Work Phone: [facility] 08-05-2022 09:05-0500 Body height 167.64 cm MD Viktor Sotelo Work Phone: [facility] 08-05-2022 09:05-0500 Body weight 115.21 kg MD Viktor Sotelo Work Phone: [facility] 08-02-2022 12:30-0500 Diastolic blood pressure 79 mm[Hg] MD Viktor Sotelo Work Phone: [facility] 08-02-2022 12:30-0500 Heart rate 68 /min MD Viktor Sotelo Work Phone: [facility] 08-02-2022 12:30-0500 Systolic blood pressure 143 mm[Hg] MD Viktor Sotelo Work Phone: [facility] 08-02-2022 12:15-0500 Respiratory rate 18 /min MD Viktor Sotelo Work Phone: [facility] 08-02-2022 10:30-0500 Body temperature 97.2 [degF] MD Viktor Sotelo Work Phone: [facility] 08-02-2022 08:36-0500 SaO2% (BldA) [Mass fraction] 94 % MD Viktor Sotelo Work Phone: [facility] 08-01-2022 22:01-0500 Body height 167.64 cm MD Viktor Sotelo Work Phone: [facility] 08-01-2022 22:01-0500 Body weight 115.21 kg MD Viktor Sotelo Work Phone: [facility] 07-22-2022 10:12-0500 Body height 167.64 cm Viktor Sotelo Work Phone: [facility] DO Work Phone: 07-22-2022 10:12-0500 Body mass index (BMI) [Ratio] 41.8 kg/m2 Viktor Sotelo Work Phone: [facility] Work Phone: 07-22-2022 10:12-0500 Body surface area Derived from formula 2.23 m2 Viktor Sotelo Work Phone: [facility] Work Phone: 07-22-2022 10:12-0500 Body weight 117.48 kg Viktor Sotelo Work Phone: [facility] Work Phone: 07-22-2022 10:12-0500 Diastolic blood pressure 72 mm[Hg] Viktor Sotelo Work Phone: [facility] Work Phone: 07-22-2022 10:12-0500 Heart rate 73 /min Viktor Sotelo Work Phone: [facility] Work Phone: 07-22-2022 10:12-0500 Systolic blood pressure 114 mm[Hg] Viktor Sotelo Work Phone: [facility] Work Phone: 07-17-2022 15:30-0500 Body temperature 97.9 [degF] MD Viktor Sotelo Work Phone: [facility] 07-17-2022 15:30-0500 Diastolic blood pressure 68 mm[Hg] MD Viktor Sotelo Work Phone: [facility] 07-17-2022 15:30-0500 Heart rate 78 /min MD Viktor Sotelo Work Phone: [facility] 07-17-2022 15:30-0500 Respiratory rate 18 /min MD Viktor Sotelo Work Phone: [facility] 07-17-2022 15:30-0500 SaO2% (BldA) [Mass fraction] 100 % MD Viktor Sotelo Work Phone: [facility] 07-17-2022 15:30-0500 Systolic blood pressure 149 mm[Hg] MD Viktor Sotelo Work Phone: [facility] 07-16-2022 16:29-0500 Body height 167.64 cm MD Viktor Sotelo Work Phone: [facility] 07-15-2022 13:12-0500 Body weight 115.66 kg MD Viktor Sotelo Work Phone: [facility] 07-15-2022 10:53-0500 Body height 167.64 cm MD Vikotr Sotelo Work Phone: [facility] 07-15-2022 10:53-0500 Body temperature 98.7 [degF] MD Viktor Sotelo Work Phone: [facility] 07-15-2022 10:53-0500 Body weight 115.85 kg MD Viktor Sotelo Work Phone: [facility] 07-15-2022 10:53-0500 Diastolic blood pressure 80 mm[Hg] MD Vkitor Sotelo Work Phone: [facility] 07-15-2022 10:53-0500 Heart rate 72 /min MD Viktor Sotelo Work Phone: [facility] 07-15-2022 10:53-0500 Respiratory rate 20 /min MD Viktor Sotelo Work Phone: [facility] 07-15-2022 10:53-0500 SaO2% (BldA) [Mass fraction] 98 % MD Viktor Sotelo Work Phone: [facility] 07-15-2022 10:53-0500 Systolic blood pressure 149 mm[Hg] MD Viktor Sotelo Work Phone: [facility] 07-09-2022 13:38-0500 Diastolic blood pressure 71 mm[Hg] MD Viktor Sotelo Work Phone: [facility] 07-09-2022 13:38-0500 Heart rate 85 /min MD Viktor Sotelo Work Phone: [facility] 07-09-2022 13:38-0500 Systolic blood pressure 109 mm[Hg] MD Viktor Sotelo Work Phone: [facility] 07-09-2022 11:35-0500 Body temperature 98.1 [degF] MD Viktor Sotelo Work Phone: [facility] 07-09-2022 11:35-0500 Respiratory rate 18 /min MD Viktor Sotelo Work Phone: [facility] 07-09-2022 11:35-0500 SaO2% (BldA) [Mass fraction] 97 % MD Viktor Sotelo Work Phone: [facility] 06-26-2022 22:17-0500 Respiratory rate 16 /min MD Viktor Sotelo Work Phone: [facility] 06-26-2022 21:54-0500 Body temperature 97.3 [degF] MD Viktor Sotelo Work Phone: [facility] 06-26-2022 21:53-0500 Diastolic blood pressure 81 mm[Hg] MD Viktor Sotelo Work Phone: [facility] 06-26-2022 21:53-0500 Heart rate 83 /min MD Viktor Sotelo Work Phone: [facility] 06-26-2022 21:53-0500 Systolic blood pressure 132 mm[Hg] MD Viktor Sotelo Work Phone: [facility] 06-26-2022 21:37-0500 Body height 167.64 cm MD Viktor Sotelo Work Phone: [facility] 06-26-2022 21:37-0500 Body weight 117.93 kg MD Viktor Sotelo Work Phone: [facility] 06-25-2022 22:03-0500 Diastolic blood pressure 78 mm[Hg] MD Viktor Sotelo Work Phone: [facility] 06-25-2022 22:03-0500 Heart rate 90 /min MD Viktor Sotelo Work Phone: [facility] 06-25-2022 22:03-0500 Respiratory rate 18 /min MD Vitkor Sotelo Work Phone: [facility] 06-25-2022 22:03-0500 SaO2% (BldA) [Mass fraction] 97 % MD Viktor Sotelo Work Phone: [facility] 06-25-2022 22:03-0500 Systolic blood pressure 127 mm[Hg] MD Viktor Sotelo Work Phone: [facility] 06-25-2022 17:29-0500 Body height 167.64 cm MD Viktor Sotelo Work Phone: [facility] 06-25-2022 17:29-0500 Body temperature 98.3 [degF] MD Viktor Sotelo Work Phone: [facility] 06-25-2022 17:29-0500 Body weight 117 kg MD Viktor Sotelo Work Phone: [facility] 06-25-2022 12:40-0500 Body temperature 97.9 [degF] MD Viktor Sotelo Work Phone: [facility] 06-25-2022 12:40-0500 Diastolic blood pressure 80 mm[Hg] MD Viktor Sotelo Work Phone: [facility] 06-25-2022 12:40-0500 Heart rate 66 /min MD Viktor Sotelo Work Phone: [facility] 06-25-2022 12:40-0500 Respiratory rate 18 /min MD Viktor Sotelo Work Phone: [facility] 06-25-2022 12:40-0500 SaO2% (BldA) [Mass fraction] 98 % MD Viktor Sotelo Work Phone: [facility] 06-25-2022 12:40-0500 Systolic blood pressure 129 mm[Hg] MD Viktor Sotelo Work Phone: [facility] 02-13-2022 07:45-0400 60 1 Viktor Sotelo Work Phone: [facility] [address] [place] Work Phone: Comment on above: [id number] 01-20-2022 19:14-0400 Diastolic blood pressure 64 mm[Hg] MD Viktor Sotelo Work Phone: [facility] 01-20-2022 19:14-0400 Heart rate 64 /min MD Viktor Sotelo Work Phone: [facility] 01-20-2022 19:14-0400 Respiratory rate 18 /min MD Viktor Sotelo Work Phone: [facility] 01-20-2022 19:14-0400 SaO2% (BldA) [Mass fraction] 100 % MD Viktor Sotelo Work Phone: [facility] 01-20-2022 19:14-0400 Systolic blood pressure 107 mm[Hg] MD Viktor Sotelo Work Phone: [facility] 01-20-2022 14:29-0400 Body temperature 98.4 [degF] MD Viktor Sotelo Work Phone: [facility] 01-20-2022 13:07-0400 Body height 167.64 cm MD Viktor Sotelo Work Phone: [facility] 01-20-2022 13:07-0400 Body weight 102.4 kg MD Viktor Sotelo Work Phone: [facility] 01-14-2022 10:20-0400 Diastolic blood pressure 74 mm[Hg] Viktor Sotelo Work Phone: [facility] Work Phone: 01-14-2022 10:20-0400 Heart rate 65 /min Viktor Sotelo Work Phone: [facility] Work Phone: 01-14-2022 10:20-0400 Systolic blood pressure 110 mm[Hg] Viktor Sotelo Work Phone: [facility] Work Phone: 01-14-2022 10:19-0400 Body height 167.64 cm Viktor Sotelo Work Phone: [facility] Work Phone: 01-14-2022 10:19-0400 Body mass index (BMI) [Ratio] 36.68 kg/m2 Viktor Sotelo Work Phone: [facility] Work Phone: 01-14-2022 10:19-0400 Body surface area Derived from formula 2.11 m2 Viktor Sotelo Work Phone: [facility] Work Phone: 01-14-2022 10:19-0400 Body weight 103.08 kg Viktor Sotelo Work Phone: [facility] Work Phone: 12-11-2021 07:30-0400 Body temperature 98.4 [degF] MD Viktor Sotelo Work Phone: [facility] 12-11-2021 07:30-0400 Diastolic blood pressure 66 mm[Hg] MD Viktor Sotelo Work Phone: [facility] 12-11-2021 07:30-0400 Heart rate 86 /min MD Viktor Sotelo Work Phone: [facility] 12-11-2021 07:30-0400 Respiratory rate 16 /min MD Viktor Sotelo Work Phone: [facility] 12-11-2021 07:30-0400 SaO2% (BldA) [Mass fraction] 95 % MD Viktor Sotelo Work Phone: [facility] 12-11-2021 07:30-0400 Systolic blood pressure 128 mm[Hg] MD Viktor Sotelo Work Phone: [facility] 12-10-2021 15:45-0400 Body height 167.64 cm MD Viktor Sotelo Work Phone: [facility] 12-09-2021 14:00-0400 Body mass index (BMI) [Ratio] 35.4 kg/m2 MD Viktor Sotelo Work Phone: [facility] 12-09-2021 09:00-0400 Body weight 99.75 kg MD Viktor Sotelo Work Phone: [facility] 04-30-2021 13:15-0500 Body height 167.64 cm Viktor Sotelo Work Phone: [id number] Work Phone: 04-30-2021 13:15-0500 Body mass index (BMI) [Ratio] 31.47 kg/m2 Viktor Sotelo Work Phone: [facility] Work Phone: 04-30-2021 13:15-0500 Body surface area Derived from formula 1.98 m2 Viktor Sotelo Work Phone: ON-Dghhzbenhzqj-ECJ Work Phone: 04-30-2021 13:15-0500 Body weight 88.45 kg Viktor Sotelo Work Phone: PI-Qvnkzxsyxllf-GBC Work Phone: 04-30-2021 13:15-0500 Diastolic blood pressure 82 mm[Hg] Viktor Sotelo Work Phone: XE-Wvxfusoukidz-ICA Work Phone: 04-30-2021 13:15-0500 Heart rate 70 /min Vikotr Sotelo Work Phone: NX-Qpabtayvddid-RBO Work Phone: 04-30-2021 13:15-0500 Respiratory rate 18 /min Viktor Sotelo Work Phone: HD-Twxbojvxzzfm-KBO Work Phone: 04-30-2021 13:15-0500 Systolic blood pressure 118 mm[Hg] Viktor Sotelo Work Phone: QD-Qczfnjburmhu-EIX Work Phone: 05-25-2020 17:24-0500 SaO2% (BldA) [Mass fraction] 64 % [facility] Encounters Encounter Date Encounter Type Care Provider Facility Start: 01-02-2025 ambulatory Michael Corcoran ty:SUNI Ahn Start: 08-31-2024 End: 08-31-2024 Subsequent hospital visit by physician Alondra [facility] Comment on above: Pacemaker; Sick sinus syndrome (Multi) Start: 08-31-2024 End: 08-31-2024 Patient encounter procedure Viktor Sotelo MD Work Phone: [facility] [place] Work Phone: Start: 08-31-2024 End: 08-31-2024 ambulatory Viktor Sotelo MD Work Phone: [facility] Work Phone: Start: 08-24-2024 End: 08-24-2024 ambulatory Viktor Sotelo Facility:[facility] Start: 08-24-2024 Non-patient / Non-visit Viktor Sotelo MD Work Phone: [facility] Start: 08-23-2024 ambulatory Viktor Sotelo Facility :[facility] Start: 08-23-2024 Registered Recurring Viktor jenkins MD Work Phone: [facility]- Credible Start: 07-25-2024 End: 07-25-2024 ambulatory Tete Snell MD Facility: [place] Start: 07-11-2024 Non-patient / Non-visit Viktor Sotelo MD Work Phone: [facility] Work Phone: Start: 07-11-2024 End: 07-11-2024 ambulatory Tete Snell MD Facility:[facility] Start: 07-05-2024 End: 07-05-2024 ambulatory Michael VIVEROS Facility:[facility] Start: 07-05-2024 End: 07-05-2024 Patient encounter procedure Michael VIVEROS [place] Start: 07-05-2024 Non-patient / Non-visit Viktor Sotelo MD Work Phone: [facility] Work Phone: Start: 07-04-2024 End: 07-04-2024 Patient encounter procedure Viktor Sotelo MD Work Phone: [facility]CT Scan [facility] [place] Work Phone: Start: 07-04-2024 End: 07-04-2024 ambulatory Viktor Sotelo MD Work Phone: [facility] Work Phone: Start: 06-27-2024 End: 06-27-2024 ambulatory Tete Snell MD Facility:[facility] Start: 06-21-2024 Registered Recurring Viktor jenkins MD Work Phone: [facility] Start: 06-10-2024 End: 06-10-2024 Patient encounter procedure Viktor Sotelo MD Work Phone: [facility] Work Phone: Start: 06-02-2024 End: 06-02-2024 ambulatory ESTELA E SHELDON Facility:[facility] [place] Start: 06-02-2024 End: 06-02-2024 Patient encounter procedure ESTELA E SHELDON [facility] [place] Start: 06-02-2024 Non-patient / Non-visit Viktor Sotelo MD Work Phone: [facility] Work Phone: Start: 05-30-2024 End: 05-30-2024 Patient encounter procedure Viktor Sotelo MD Work Phone: [facility]-Ultrasound [facility] [place] Work Phone: Start: 05-30-2024 End: 05-30-2024 ambulatory Estela E Sheldon Facility:[facility] Start: 05-30-2024 End: 05-30-2024 ambulatory ESTELA E SHELDON Facility:[facility] [place] Start: 05-30-2024 End: 05-30-2024 Patient encounter procedure ESTELA E SHELDON [facility] Екатерина Start: 05-25-2024 End: 05-25-2024 ambulatory RITA Helms [facility] Start: 05-25-2024 End: 05-25-2024 Subsequent hospital visit by physician Alondra [facility] Comment on above: Pacemaker; Sick sinus syndrome (Multi) Start: 05-03-2024 End: 05-03-2024 ambulatory ESTELA E SHELDON Facility:[facility] [place] Start: 05-03-2024 End: 05-03-2024 Patient encounter procedure ESTELA E SHELDON [facility] [place] Start: 02-10-2024 End: 02-10-2024 ambulatory [facility] Start: 02-10-2024 End: 02-10-2024 Subsequent hospital visit by physician Alondra [facility] Comment on above: Pacemaker; Sick sinus syndrome (Multi) Start: 11-12-2023 End: 11-12-2023 ambulatory MD Viktor Sotelo Work Phone: [facility] Work Phone: Start: 11-12-2023 End: 11-12-2023 Patient encounter procedure MD Viktor Sotelo Work Phone: [facility] Work Phone: Start: 11-09-2023 Registered Recurring MD Viktor Sotelo Work Phone: [facility] Start: 11-04-2023 End: 11-04-2023 ambulatory [facility] Start: 11-04-2023 End: 11-04-2023 Subsequent hospital visit by physician Alondra [facility] Comment on above: Pacemaker; Sick sinus syndrome (Multi) Start: 10-29-2023 End: 10-31-2023 Evaluation and management of inpatient VIKTOR SOTELO [facility] Start: 10-29-2023 Non-patient / Non-visit MD Viktor Sotelo Work Phone: [facility] Work Phone: Start: 10-28-2023 Non-patient / Non-visit MD Viktor Sotelo Work Phone: [facility] Work Phone: Start: 10-27-2023 Non-patient / Non-visit MD Viktor Sotelo Work Phone: [facility] Work Phone: Start: 10-26-2023 Non-patient / Non-visit MD Viktor Sotelo Work Phone: [facility] Work Phone: Start: 07-29-2023 End: 07-29-2023 Subsequent hospital visit by physician Alondra [facility] Comment on above: Pacemaker; Sick sinus syndrome (CMS/HCC) Start: 04-28-2023 End: 04-28-2023 Patient encounter procedure ESTELA CHUNG [facility] Start: 04-24-2023 End: 04-24-2023 Subsequent hospital visit by physician Alondra [facility] Comment on above: Pacemaker; Sick sinus syndrome ([facility]/HCC) Start: 01-21-[address] Viktor Sotelo Facility:[id number] Start: 01-21-2023 End: 01-21-2023 ambulatory MD Viktor Sotelo Work Phone: [facility] Work Phone: Start: 01-21-2023 End: 01-21-2023 Patient encounter procedure MD Viktor Sotelo Work Phone: [facility]-MRI Main [place] Work Phone: Start: 01-20-2023 Current tobacco non-user cad cap copd pv dm Viktor Sotelo Work Phone: [facility] DO Work Phone: Start: 01-20-[address] Viktor Sotelo Facility:[id number] Start: 12-19-[address] Viktor Sotelo Facility:[id number] Start: 12-19-2022 End: 12-19-2022 ambulatory MD Viktor Sotelo Work Phone: [facility] Work Phone: Start: 12-19-2022 End: 12-19-2022 Patient encounter procedure MD Viktor Sotelo Work Phone: [facility]-Pacemaker Check Start: 12-11-2022 End: 12-15-2022 Evaluation and management of inpatient MD Viktor Sotelo Work Phone: [facility]-[address] [place] [address] Work Phone: Start: 12-09-2022 End: 12-09-2022 Patient encounter procedure Michael Johnson FELICE [place] Start: 11-03-2022 Registered Recurring MD Viktor Sotelo Work Phone: [facility] Start: 10-28-2022 End: 11-01-2022 Evaluation and management of inpatient MD Viktor Sotelo Work Phone: [facility]-[address] [place] [address] Work Phone: Start: 10-28-2022 Registered Recurring MD Viktor Sotelo Work Phone: [facility] Start: 10-21-[address] Viktor Sotelo Facility:[id number] Start: 10-18-2022 End: 10-18-2022 Emergency department patient visit MD Viktor Sotelo Work Phone: [facility]-Emergency Room Work Phone: Start: 10-16-2022 End: 10-16-2022 ambulatory KRISTA HARVEY . Facility: Start: 09-28-2022 End: 09-28-2022 Emergency department patient visit MD Viktor Sotelo Work Phone: [facility]-Emergency Room Work Phone: Start: 09-03-2022 End: 09-07-2022 Evaluation and management of inpatient MD Viktor Sotelo Work Phone: [address] Work Phone: Start: 09-03-2022 End: 09-03-2022 Patient encounter procedure ESTELA CHUNG [facility] [place] Start: 08-11-2022 End: 08-13-2022 Evaluation and management of inpatient MD Viktor Sotelo Work Phone: [facility] [place] Work Phone: Start: 08-05-2022 End: 08-05-2022 ambulatory MD Viktor Sotelo Work Phone: [facility] Work Phone: Start: 08-05-2022 End: 08-05-2022 Patient encounter procedure MD Viktor Sotelo Work Phone: [facility] Labor - O/P Start: 08-01-2022 End: 08-02-2022 Evaluation and management of inpatient MD Viktor Sotelo Work Phone: [facility]-3 [facility] Labor and Delivery Work Phone: Start: 07-25-2022 End: 07-25-2022 ambulatory MD Viktor Sotelo Work Phone: [facility] Work Phone: Start: 07-25-2022 End: 07-25-2022 Departed Referred MD Viktor Sotelo Work Phone: [facility]-Lab Main [place] Work Phone: Start: 07-22-2022 Current tobacco non-user cad cap copd pv dm Viktor Sotelo Work Phone: [facility] DO Work Phone: Start: 07-22-[address] Viktor Sotelo Facility:[id number] Start: 07-15-2022 End: 07-17-2022 Evaluation and management of inpatient MD Viktor Sotelo Work Phone: [facility] Work Phone: Start: 07-09-2022 End: 07-09-2022 ambulatory MD Viktor Sotelo Work Phone: [facility] Work Phone: Start: 07-09-2022 End: 07-09-2022 Discharged Recurring MD Viktor Sotelo Work Phone: [facility]-Infusion Therapy - O/P Work Phone: Start: 06-30-2022 End: 06-30-2022 ambulatory MD Viktor Sotelo Work Phone: [facility] Work Phone: Start: 06-30-2022 End: 06-30-2022 Patient encounter procedure MD Viktor Sotelo Work Phone: [facility]-Lab Main [place] Work Phone: Start: 06-26-2022 End: 06-26-2022 ambulatory MD Viktor Sotelo Work Phone: [facility] Work Phone: Start: 06-26-2022 End: 06-26-2022 Patient encounter procedure MD Viktor Sotelo Work Phone: [facility] [place] Labor - O/P Start: 06-25-2022 End: 06-25-2022 Emergency department patient visit MD Viktor Sotelo Work Phone: [facility]-Emergency Room Work Phone: Start: 06-25-2022 Registered Recurring MD Viktor Sotelo Work Phone: [facility]-Infusion Therapy - O/P Work Phone: Start: 04-28-2022 End: 04-29-[address] VIKTOR SOTELO Facility:[id number] Start: 04-17-[address] Viktor Sotelo Facility:[id number] Start: 02-14-2022 Chart Update Viktor Sotelo Work Phone: [facility] DO Work Phone: Start: 02-13-2022 Patient encounter procedure Viktor Sotelo Work Phone: [facility] [address] [place] Work Phone: Start: 02-13-[address] Rita Ortega ne [place] Facility:[id number] Start: 01-20-2022 End: 01-20-2022 Emergency department patient visit MD Viktor Sotelo Work Phone: [facility]-Emergency Room Start: 01-14-2022 Current tobacco non-user cad cap copd pv dm Viktor Sotelo Work Phone: [facility] DO Work Phone: Start: 12-18-2021 ambulatory Clemente simmons MD Work Phone: General Surgery Comment on above: Port Start: 12-16-2021 End: 12-16-2021 Patient encounter procedure MD Viktor Sotelo Work Phone: [facility]-Lab Main [place] Start: 12-08-2021 End: 12-11-2021 Evaluation and management of inpatient MD Viktor Sotelo Work Phone: [facility]-[address] [place] [address] Start: 09-18-2021 Telephone encounter Clemente Bernstein MD Work Phone: Gastroenterology Comment on above: Patient Update Start: 07-19-2021 Result Review Viktor Sotelo Work Phone: QP-Kuyzbkkbjrcr-GAKPU Work Phone: Start: 04-30-2021 Current tobacco non-user cad cap copd pv dm Viktor Sotelo Work Phone: OQ-Thgvgqyjkkit-TYTZQ Work Phone: Start: 03-20-2021 Patient encounter procedure Viktor Sotelo Work Phone: YJ-Ymeeyjhxhldwv-Vitpstd 3[address] Work Phone: Start: 01-24-2020 End: 01-25-2020 Patient encounter procedure [facility] Start: 01-24-2020 End: 01-24-2020 Subsequent hospital visit by physician [facility] Schedule [facility] Comment on above: [...] 2) Zoste r Vaccines (1 of 2) [facility] Start: 02-21-2024 COVID-19 Vaccine ( season) COVID-19 Vaccine ( season) [facility] Start: 02-21-2024 Influenza vaccination [facility] Start: 07-07-2023 FUV, Provider: Rita Olivia, Status: Pen, Time: 8:40 AM FUV, Provider: Rita Olivia, Status: Pen, Time: 8:40 AM -[facility] [address] DO Work Phone: Start: 07-07-2023 End: 07-07-2023 Patient encounter procedure 07/07/2023 8:40 AM EST Office Visit [facility] [address] [place] [address] Rita Olivia MD [address] [facility] [address] [place], [place] [id number] [facility] Start: 02-20-2023 COVID-19 Vaccine ( season) COVID-19 Vaccine ( season) [facility] Start: 02-20-2023 Influenza vaccination Influenza Vacc ine (#1) [facility] Start: 01-20-2023 FUV, Provider: Rita Olivia, Status: Pen, Time: 8:40 AM FUV, Provider: Rita Olivia, Status: Pen, Time: 8:40 AM -[facility] [address] DO Work Phone: Start: 01-20-2023 Patient encounter procedure FUVPACEMKR, Provider: [facility], Status: Pen, Time: 8:00 AM -[facility] [address] DO Work Phone: Start: 12-15-2022 [facility] Start: 12-11-2022 Referral to Molded Goods Controls Operator [facility] Start: 12-11-2022 Hospital admission [facility] Start: 12-11-2022 Bacteria identified in Urine by Culture Urine Culture [facility] Start: 11-01-2022 [facility] Start: 10-31-2022 Administration of prophylactic treatment [facility] Start: 2022 Screening for malign ant neoplasm of breast Mammogram [facility] Start: 10-29-2022 Referral to clinical keno writer [facility] Start: 10-28-2022 Referral to Molded Goods Controls Operator [facility] Start: 10-28-2022 Hospital admission [facility] Start: 10-28-2022 Bacteria identified in Urine by Culture [facility] Start: 09-28-2022 CT angiography of thorax CT an ignacia chest PE protocol [facility] Start: 09-28-2022 CT Chest [facility] Start: 09-28-2022 Plain chest X-ray XR chest 2V* [facility] Start: 09-28-2022 XR Chest 2 Views [facility] Start: 09-28-2022 Bacteria identified in Urine by Culture [facility] Start: 09-07-2022 [facility] Start: 09-03-2022 Hospital admission [facility] Start: 08-13-2022 [facility] Start: 08-12-2022 Referral to psychiatrist [facility] Start: 08-12-2022 Hospital admission [facility] Start: 08-11-2022 Extraction of Produc ts of Conception, Low Forceps, Via Natural or Artificial Opening Extraction of Products of Conception, Low Forceps, Via Natural or Artificial Opening [facility] Start: 08-05-2022 [facility] Start: 08-02-2022 [facility] Start: 08-02-2022 Referral to neurologist [facility] Start: 08-02-2022 Hospital admission [facility] Start: 08-02-2022 [facility] Start: 08-01-2022 Hospital admission [facility] Start: 08-01-2022 Bacteria identified in Urine by Culture [facility] Start: 07-25-2022 Group B Streptococcu s Culture Group B Streptococcus Culture [facility] Start: 07-22-2022 FUV, Provider: Rita Olivia, Status: Pen, Time: 9:40 AM FUV, Provider: Rita Olivia, Status: Pen, Time: 9:40 [facility] Work Phone: Start: 07-17-2022 [facility] Start: 07-15-2022 Bacteria identified in Urine by Culture [facility] Start: 07-15-2022 Referral to Molded Goods Controls Operator [facility] Start: 07-15-2022 Sleep disorder assessment [facility] Start: 07-15-2022 Hospital admission [facility] Start: 06-26-2022 [facility] Start: 06-26-2022 Hospital admission [facility] Start: 06-26-2022 [facility] Start: 06-26-2022 Bacteria identified in Urine by Culture [facility] Start: 06-25-2022 Bacteria identified in Urine by Culture [facility] Start: 02-20-2022 Influenza vaccination INFLUENZA (#1) [facility] Start: 02-13-2022 ECHO, Provider: EDSON DUNN [facility] 01,[id number], Status: Pen, Time: 7:45 AM ECHO, Provider: ЕКАТЕРИНА [facility] 01,[id number], Status: Pen, Time: 7:45 AM [facility] Work Phone: Start: 12-11-2021 [facility] Work Phone: Start: 12-10-2021 Referral to toolroom keeper [facility] Work Phone: Start: 12-09-2021 Hospital admission [facility] Work Phone: Start: 07-09-2021 Patient encounter procedure FUVPACEMKR, Provider: [facility]CHRISSI[facility], Status: Pen, Time: 10:20 [address]-Droeiemyrwxs-PJDB C Work Phone: Start: 06-19-2021 EPVNEHALINA, Provider: Dennis Almendarez, Status: Pen, Time: 9:00 AM EPVNEURO, Provider: Dennis Almendarez, Status: Pen, Time: 9:00 AM NV-Nostshchatxob-Stz well [address] Work Phone: Start: 02-20-2021 Influenza vaccination INFLUENZA (#1) [facility] Start: 07-10-2020 Adult depression screening assessment DEPRESSION SCREENING [facility] Start: 02-21-2020 Influenza vaccination Flu vaccine (# 1) [place], [place] Start: 2018 HPV TESTING HPV TESTING [facility] Start: 2018 PAP TESTING PAP TESTING [facility] Start: 05-17-2009 MMR Vaccines (1 of 1 - Standard series) MMR Vaccines (1 of 1 - Standard series) [facility] Start: 05-17-2009 Varicella vaccination U [facility] Start: 2004 DTaP/Tdap/Td Vaccine s (1 - Tdap) DTaP/Tdap/Td Vaccines (1 - Tdap) [facility] Start: 10-31-2003 Screening for malign ant neoplasm of cervix [facility] Start: 2001 DTaP/Tdap/Td vaccine (1 - Tdap) DTaP/Tdap/Td vaccine (1 - Tdap) [place] Start: 2001 Hepatitis B Vaccines (1 of 3 - 19+ 3-dose series) Hepatitis B Vaccines (1 of 3 - 19+ 3-dose series) [facility] Start: 2001 Urine microalbumin profile DTAP,TDAP,TD (1 - Tdap) [facility] Start: 2000 Diabetes mellitus screening Diabetes Screening [facility] Start: 2000 HEPATITIS C SCREENING HEPATITIS C [facility] Start: 2000 Hepatitis C screening Hepatitis C [facility] Start: 2000 HIV SCREENING HIV SCREENING [facility] Start: 1997 HIV screening HIV screen [place], [place] Start: 10-31-1987 COVID-19 VACCINE (1) COVID-19 VACCIN E (1) [facility] Start: 10-31-1983 Varicella vaccine (1 of 2 - 2-dose childhood series) Varicella vaccine (1 of 2 - 2-dose childhood series) [facility] Start: 05-02-1983 COVID-19 VACCINE (#1) COVID-19 VACCI NE (#1) [facility] Start: 1982 Hepatitis B Vaccines (1 of 3 - 3-dose series) Hepatitis B Vaccines (1 of 3 - 3-dose series) [facility] Start: 1982 HIV screening HIV Screening [facility] Start: 1982 Lipid panel Lipid Panel [facility] Start: 1982 Medicare Annual Well ness Visit Medicare Annual Wellness Visit (AWV) [facility] End: 07-29-2023 Cardiac Device Check - Remote [facility] Service Area Work Phone: Comment on above: Once for 1 Occurrenc es starting 07/29/2023 until 07/29/2023 End: 11-04-2023 Cardiac Device Check - Remote [facility] Service Area Work Phone: Comment on above: Once for 1 Occurrenc es starting 11/04/2023 until 11/04/2023 End: 05-25-2024 Cardiac Device Check - Remote [facility] Service Area Work Phone: Comment on above: Once for 1 Occurrenc es starting 05/25/2024 until 05/25/2024 End: 02-10-2024 Cardiac Device Check - Remote [facility] Service Area Work Phone: Comment on above: Once for 1 Occurrenc es starting 02/10/2024 until 02/10/2024 End: 08-31-2024 Cardiac Device Check - Remote [facility] Service Area Work Phone: Comment on above: Once for 1 Occurrenc es starting 08/31/2024 until 08/31/2024 End: 01-24-2020 Home Sleep Study Home Sleep Study Sleep Center Routine One Time for 1 Occurrences starting 01/24/2020 until 01/24/2020 [facility] Comment on above: One Time for 1 Occur rences starting 01/24/2020 until 01/24/2020 Patient Education [facility] Work Phone: Patient referral [facility] Work Phone: Reagin Ab [Presence] in Serum by RPR [facility] Streptococcus agalac tiae [Presence] in Unspecified specimen by Organism specific culture [facility] Immunizations Immunization Date Immunization Notes Care Provider Carlita arthur 05-27-2020 influenza virus vaccine, unspecified formulation ESTELA CHUNG [facility] 05-27-2020 influenza, injectabl e, quadrivalent, preservative free Clemente Eng MD Work Phone: [facility] 05-22-2020 influenza virus vaccine, unspecified formulation ESTELA SHELDON [facility] 08-29-2019 influenza virus vaccine, unspecified formulation Viktor Sotelo Work Phone: [facility] Work Phone: 04-10-2019 influenza virus vaccine, unspecified formulation ESTELA SHELDON [facility] 04-10-2019 influenza, injectabl e, quadrivalent, preservative free Clemente Eng MD Work Phone: [facility] 04-19-2009 novel [id number], preservative-free, injectable Viktor Sotelo Work Phone: [facility] [employer] DO Work Phone: Payers Date Payer Category Payer Private Health Insurance 2022 Medicaid [id number] 2022 Self-pay [id number] 2021 Medicare AETNA MEDICARE A ETNA MEDICARE ASSURE [id number] 2021-Present [address] [place] [address] [id number] 2021 Medicare (Managed Care) AETHERMILO MARTEL [id number] 2021 Private Health Insurance [id number] 2020 Medicaid MEDICAID [facility] MEDICAID [id number] 2020-Present [phone] [address] [place] [address] Medicaid [id number] 2020 Medicare MEDICARE MEDICAR E A AND B [id number] 2020-Present [phone] [address] [address] [place] [address] Medicare [id number] 2019 Unknown [id number] 1.2.840.686954.1.13.239.2.7 .3.520579.315 1982 Unknown [id number] 2.16.840.1.683458.3.579.2.1 74 1982 Unknown [id number] 2.16.840.1.162860.3.579.2.5 93 1982 Unknown [id number] 2.16.840.1.848674.3.579.2.5 93 1982 Unknown [id number] 2.16.840.1.877262.3.579.2.1 1982 Unknown [id number] 2.16.840.1.340811.3.579.2.1 1982 Unknown [id number] 2.16.840.1.054719.3.579.2.1 1982 Unknown [id number] 2.16.840.1.472392.3.579.2.1 1982 Unknown [id number] 2.16.840.1.407094.3.579.2.1 1982 Unknown [id number] 2.840.1.760154.3.579.2.3 1982 Unknown [id number] 2.840.1.521188.3.579.2.3 1982 Unknown [id number] 2.840.1.963824.3.579.2.3 1982 Unknown [id number] 2.840.1.074997.3.579.2.3 1982 Unknown [id number] 2.840.1.201674.3.579.2.1 1982 Unknown [id number] 2840.1.195493.3.579.2.7 1982 Unknown [id number] 2840.1.621130.3.579.2.7 1982 Unknown [id number] 2.840.1.134732.3.579.2.7 1982 Unknown [id number] 2.840.1.221369.3.579.2.7 1982 Unknown [id number] 2.16840.1.164067.3.579.2.7 1982 Unknown [id number] 2.16840.1.708410.3.579.2.1 1982 Unknown [id number] 2.16840.1.344456.3.579.2.1 1982 Unknown [id number] 2.16840.1.891019.3.579.2.1 1982 Unknown [id number] 2.16840.1.757268.3.579.2.1 [facility] 1982 Unknown [id number] 2.840.1.514297.3.579.2.1 [facility] 1982 Unknown [id number] 2.840.1.357630.3.579.2.1 [facility] 1982 Unknown [id number] 2.840.1.853403.3.579.2.1 [facility] 1957 Medicaid [id number] 1957 Medicare [id number] Medicare [id number] Unknown Unknown [id number] 2840.1.228662.3.579.2.5 31 Unknown [id number] 2840.1.238112.3.579.2.5 31 Unknown [id number] 2840.1.232321.3.579.2.5 31 Unknown [id number] 20.1.737551.3.579.2.5 31 Unknown [id number] 2840.1.693949.3.579.2.5 31 Social History Date Type Detail Facility [facility] smoked [place], [place] Start: 1980 Sex Assigned At Not on file [place], [place] Start: 06-08-2023 Non-smoker Non-smoker [facility] Work Phone: Start: 10-21-2013 End: 12-12-2022 Tobacco smoking status NHIS Never smoked tobacco [facility] Work Phone: Start: 10-21-2013 End: 06-08-2023 Tobacco use and exposure Smokeless tobacco non-user [facility] Work Phone: Start: 11-09-2020 Alcohol intake Current non-dr toolsmith of alcohol (finding) [facility] Start: 10-24-2019 History SDOH Financial 5 [facility] Start: 10-24-2019 History SDOH Food Worry 1 [facility] Start: 10-24-2019 History SDOH Transpo rt Med 2 [facility] Start: 1980 Sex Assigned At Female [facility] Tobacco smoking status Never [facility] Start: 06-08-2023 Sex Assigned At Female [facility] Tobacco smoking stat us NHIS Tobacco smoking consumption unknown [facility] Work Phone: Start: 06-08-2023 Alcohol intake Ex-drinker (finding) [facility] Work Phone: Start: 07-05-2024 End: 09-01-2024 Sex Female (finding) [facility] Medical Equipment Procedure Code Equipment Code Equipment Origin al Text Equipment Identifier Dates [facility] 8tc/52 [id number] Start: 04-11-2020 [facility] 8tc/46 [id number] Start: 04-11-2020 [facility] Assurity Mri [id number] Start: 04-11-2020 Tray Port-A-Cath Ii 7.8fr 2.6mm 1.6mm Polysulfone Titanium Polyurethane 76 - [id number] Start: 07-22-2018 Corflo Feeding T ube 10f 60cm [id number] Start: 08-17-2018 Kit Ponsky 20fr Silicone Peg Pull Deluxe Kit Non Safety Sterile - [id number] Start: 01-31-2019 Tube Claudio Secur-L ok 20fr Standard J Silicone Jejunostomy Trimmable Distal - [id number] Start: 2019 Tube Claudio Secur-L ok 18fr Standard Silicone Natural Rubber Jejunostomy - [id number] Start: 07-11-2019 Kit Endovive 20f r Xylocaine Silicone Peg Pull Method Ampule Trocar Cannula - [id number] Start: 10-25-2019 Goals Date Patient Goal Desired Activity /State Functional Status Date Assessment Result Facility 07-05-2024 Functional Status N/A [facility] 04-28-2023 Functional Status N/A [facility] 12-15-2022 Functional status Patient at [facility] Work Phone: 12-09-2022 Functional Status N/A [facility] 11-01-2022 Functional status Patient at [facility] Work Phone: 09-07-2022 Functional status Patient at [facility] Work Phone: 09-03-2022 Functional Status N/A [facility] 08-13-2022 Functional status Patient at [facility] Work Phone: 07-17-2022 Functional status Patient at [facility] Work Phone: 12-11-2021 Functional status Patient at [facility] Work Phone: Mental Status Date Assessment Result Facility 12-15-2022 Cognitive function Cognitive Sta tus Patient at Baseline [facility] Work Phone: 11-01-2022 Cognitive function Cognitive Sta tus Patient at Baseline [facility] Work Phone: 09-07-2022 Cognitive function Cognitive Sta tus Patient at Baseline [facility] Work Phone: 08-13-2022 Cognitive function Cognitive Sta tus Patient at Baseline [facility] Work Phone: 07-17-2022 Cognitive function Cognitive Sta tus Patient at Baseline [facility] Work Phone: 12-11-2021 Cognitive function Cognitive Sta tus Patient at Baseline [facility] Work Phone: Clinical Notes 06-07-2019 to [...] Up Care 06/21/2024 10:16:19 With:Michael VIVEROS Address: [address] [place], [place] [id number] Business (1) When:01/02/2025 13:36:19 Comments:With Martha Crawford [facility] 07-05-2024 Evaluation + Plan note Extrac nneka [...] 13:40 EST Urethra was dilated from 22-30 [place] wi th [place] sounds. Future Appointments Appointment Date:01/02/2025 08:20:00 AM Scheduled Provider:ESTELA CHUNG PA-C Location:[facility] Appointment Type:URO Office Visit [place] 01-14-2025 NotePatient Education Custom Cystoscopy with Urethral [...] you have a fever over 100 degreesFisher [facility] 07-04-[facility]24 [facility] [place] [address] [place], [place] [address] CT Scan Report Signed Patient: Maricarmen Anderson MR#: [id number] : 1980 Acct:[id number] Age/Sex: 43 / F ADM Date: 5 [...] Oro Jr., D.O.07/04/2024 2:58 PM Dictation Location: [place] [address] Transcribed By: [facility] 07/04/24 145 Dictated By: Mitchel Oro Jr, DO 07/04/24 1455 Signed By: 07/04/24 1458 [facility]12-20-2024 Evaluation note* Diagnosis Onset Date Resolution Status Admit Date Cervical radicular pain acute D ec2023 9:26am Gastroparesis acute June 102023 9:26am [facility] Work Phone: 1(215) 942-273912-12-2024 Hospital Discharge instructions Patient Education 06/02/2024 15:53:20 [...] Follow these instructions at home: Medicines Take incf-yhe-hieflua and prescription medicines only as told by [...] provider. Document Revised: 02/27/2021 Document Reviewed: 02/27/2021 [employer] Patient Education 2023 [email or web address]. Follow Up Care 05/27/2024 13:08:43 With:SHELDON RILEY, ESTELA Leone, URL Address: [address] [place] [address] When: Unknown [facility] 12-12-2024 NotePatient Education Obstetrics and Gynecology Acute [...] these instructions at home: Medicines ??? Take hakz-yyd-akczbzg and prescription medicines only as told by [...] Reviewed: 02/27/2021 Elsevier Patient Education ? 2023 [email or web address].[facility] 05-25-2024 Hospital Discharge instructions Follow Up Care 05/25/2024 15:26:22 With:ESTELA CHUNG PA-C, URL Address: [facility] [address] [place] [address] When: Unknown [facility] [place] [phone] Hospital Discharge instructions Patient Education 04/28/2023 10:54:08 Urinary Tract Infection, Adult, Curw-sd-Anbf Urinary Tract Infection, Adult A urinary tract [...] Follow these instructions at home: Medicines Take hxbb-uwu-pbmerxn and prescription medicines only as told by [...] provider. Document Revised: 01/18/2021 Document Reviewed: 01/18/2021 [employer] Patient Education 2022 [email or web address]. Follow Up Care 01/21/2023 14:42:53 With:ESTELA CHUNG PA-C, URL Address: [facility] [address] [facility] [place] [address] [phone] When: Unknown Comments:1 yr w/ CRESCENCIO [facility] Petey 06-26-2023 Discharge summary Author Nimesh regalado [facility] December 15, 2022 9:25am Note Date/Time December 15, 2022 9:24 am [facility] [address] [place] [address] Discharge Summary Signed Patient: Maricarmen Anderson MR#: [id number] : 1980 Acct:[id number] Age/Sex: 42 / F Adm Date: 3 Loc: Room: [address] [place] [address]: Eduardo Swain MD Copies to: [...] or stop treatment, but to call Mobile [employer], 911 or come to the nearest emergency [...] Q28D promethazine 12.5 mg suppository 12.5 mg DE Q6H PRN (Reason: Nausea And Vomiting) Patient [...] 15 Days Qty: 30 0RF Follow Up: [facility] [Outside] [facility] [Outside] Viktor Sotelo MD [Primary Care Provider] - (Call your primary provider for any medical needs. ) Documented By: Nimesh Cerda MD 3 09 Signed By: <Electronically signed by Nimesh Cerda MD> 12/15/22924 [facility] Work Phone: 1(347) 255-726006-25-2023 Progress note Author Nimesh regalado [facility] December 14, 2022 7:31am Note Date/Time December 14, 2022 7:29 am [facility] [address] [place] [address] Psychiatry Progress Note Signed Patient: Maricarmen Anderson MR#: [id number] : 1980 Acct:[id number] Age/Sex: 42 / F Adm Date: 3 Loc: Room: [address] [place] [address] Type : ADM IN Attending Dr: Eduardo [...] signed by Nimesh Cerda MD> 12/14/22 0731 [facility] Work Phone: 1(826) 556-527106-24-2023 Progress note Author Nimesh regalado [facility] December 13, 2022 8:43am Note Date/Time December 13, 2022 6:53 am [facility] [address] [place] [address] Psychiatry Progress Note Signed Patient: Maricarmen Anderson MR#: [id number] : 1980 Acct:[id number] Age/Sex: 42 / F Adm Date: 3 Loc: Room: [address] [place] [address] Type : ADM IN Attending Dr: Eduardo [...] signed by Nimesh Cerda MD> 12/13/22 0843 [facility] Work Phone: 1(322) 766-936306-23-2023 History and physical note Author Eduardo Swain [facility] December 12, 2022 10:19am Note Date/Time December 12, 2022 10:1 9am [facility] [address] [place] [address] Psychiatry H&P Signed Patient: Maricarmen Anderson MR#: [id number] : 1980 Acct:[id number] Age/Sex: 42 / F Adm Date: 3 Loc: Room: [address] [place] [address] Type: ADM IN Attending Dr: Eduardo Swain [...] promethazine 12.5 mg rectal suppository 12.5 mg DE Q6H PRN Nausea And Vomiting 12/11/22 [History [...] cloudy A Urine pH 6.0 Ur Specific Ransom 1.015 Urine Protein Negative Urine Glucose (UA) [...] signed by Eduardo Swain MD> 12/12/22 1019 [facility] Work Phone: 1(282) 982-166806-20-2023 Hospital Discharge instructions Patient Education 12/09/2022 09:42:03 [...] Address: [facility] [address], [place] [address]- Business (1) When:06/10/2023 09:41:40 Comments:Patient is to get scheduled for a CT abdomen and pelvis today [place]05-13-2023 Discharge summary Author Nimesh regalado [facility] November 01, 2022 9:36am Note Date/Time November 01, 2022 9:34a m [facility] [address] [place], [place] [address] Discharge Summary Signed Patient: Maricarmen Anderson MR#: [id number] : 1980 Acct:[id number] Age/Sex: 42 / F Adm Date: 3 Loc: Room: [address] [place] [address]: Toribio Cerda MD Copies to: [...] Creatinine Clear 114.96, Sodium 140, Potassium 4.0, Cvbyusrt708, Carbon Dioxide 26.4, Anion Gap 10.6, BUN 14, Creatinine 0.82, Est GFR (CKD-EPI) > 60.0, Glucose 74, Calcium 8.8, Vitamin B12 205 11/01/22 06:20: Corrected WBC 5.1, Uncorrected WBC Count 5.1, RBC 3.89, Hgb 12.5, Hct 37.5, MCV 96.5, MCH 32.2, MCHC 33.4, RDW 12.9, Plt Count 184, MPV 7.8,Neut % (Auto) 54.1, Lymph % (Auto) 34.7, [place] % (Auto) 6.1, Eos % (Auto) 4.2, Baso % (Auto) 0.9, Nucleat RBC Rel Count 0.1, Neut # (Auto) 2.8, Lymph # (Auto) 1.8, [place] # (Auto) 0.3, Eos # (Auto) 0.2, [...] Adult (DC), Gastroparesis (Delayed Gastric Emptying) (DC), [facility] DC Instructions Prescriptions: New promethazine [Promethegan] 12.5 mg Suppository 12.5 mg DE Q6H PRN (Reason: Nausea And Vomiting) 15 [...] 30 Days Qty: 1 0RF Follow Up: [facility] [Outside] [facility] [Outside] - 11/11/22 10:00 am (At this appointment you will see the nurse, your counselor, and Dr. Zhang. You will also receive your long acting injection. This appointment will take appoximately 2-1/2 hours. You may bring a snack if you would like. ) Psychiatric [Outside] (Case Management: You will RECEIVE PHONE [...] <Electronically signed by Nimesh Cerda MD> 11/01/22935 [facility] Work Phone: 1(248) 662-620005-12-2023 Progress note Author Afshan Hines [facility] October 31, 2022 2:14pm Note Date/Time October 31, 2022 2:09p m [facility] [address] [place] [address] Hospitalist Progress Note Signed Patient: Maricarmen Anderson MR#: [id number] : 1980 Acct:[id number] Age/Sex: 42 / F Adm Date: 3 Loc: 1S Room: [address] [place] [address] Type: ADM IN Attending Dr: Toribio Cerda [...] 19:16 10/30/22 15:11 Promethazine 12.5 Mg Supp.Rect DE 10/29/23 19:15 12.5 mg Q6H PRN Administration [...] chronic -Patient follows [facility] [place] [facility] [phone] -metoclopramide scheduled, prn ondansetron/ promethazine for symptoms -note patient is 2 months ago Chronic conditions 1. Chronic back pain?tizanidine Schizoaffective disorder -Further plan of care per inpatient psychiatric team for psychoactive medicationmanagement/adjustment in psych with therapy Documented By: LI Coleman 3 1407 Signed By: <Electronically signed by LI Hines> 10/31/22 1414 [facility] Work Phone: 1(241) 372-662805-12-2023 Progress note Author Nimesh regalado [facility] October 31, 2022 8:45am Note Date/Time October 31, 2022 8:45a m [facility] [address] [place] [address] Psychiatry Progress Note Signed Patient: Maricarmen Anderson MR#: [id number] : 1980 Acct:[id number] Age/Sex: 42 / F Adm Date: 3 Loc: Room: [address] [place] [address] Type : ADM IN Attending Dr: Toribio [...] Zero. Documented By: Nimesh Cerda MD 3 1134 Signed By: <Electronically signed by Nimesh Cerda MD> 10/31/22 0845 [facility] Work Phone: 1(453) 687-856705-11-2023 Consult note Author Rosendo Holland [facility] 2022 1:42pm Note Date/Time October 29, 2022 3:40p m [facility] [address] [place] [address] Hospitalist Consult Note Signed Patient: Maricarmen Anderson MR#: [id number] : 1980 Acct:[id number] Age/Sex: 41 / F Adm Date: 3 Loc: 1S Room: 1Q3083-1 Type: ADM IN Attending Dr: Toribio Cerda [...] added. Patient routinely follows with GIservices at [facility] for this and has upcoming appointment [...] negative unless noted below or in HPI [facility] Attestation Statement: The following information was validated [...] Creatinine Clear 136.41, Sodium 141, Potassium 3.8, Bivhbjkr599 H, Carbon Dioxide 24.6, Anion Gap 11.2, [...] % (Auto) 69.0, Lymph % (Auto) 19.9, [place] % (Auto) 6.5, Eos % (Auto) 3.9, Baso % (Auto) 0.7, Nucleat RBC Rel Count 0.2, Neut # (Auto) 4.2, Lymph # (Auto) 1.2, [place] # (Auto) 0.4, Eos # (Auto) 0.2, Baso # (Auto) 0.0, Monocyte Dist Width17.88 10/28/22 15:13: Urine Color Dark yellow A, Urine Appearance Clear, Urine pH 6.0,Ur Specific Ransom 1.024, Urine Protein Negative, Urine Glucose (UA) [...] y for gastroparesis 2019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 [...] signed by Eduardo Swain MD> 12/12/22 1019 [facility] Work Phone: History of Present illness [...] 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 * Personal review of ECG and cardiac [...] needed, treatment options, risks, benefits, and imponderables. [employer] lifestyle changes and behavioral modification discussed. All questions answered in detail. Counseling over 50% visit regarding above. Patient appreciative of care. 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 * Personal review of ECG and cardiac [...] needed, treatment options, risks, benefits, and imponderables. [employer] lifestyle changes and behavioral modification discussed. All questions answered in detail. Counseling over 50% visit regarding above. Patient appreciative of care. 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 * Personal review of ECG and cardiac [...] needed, treatment options, risks, benefits, and imponderables. [employer] lifestyle changes and behavioral modification discussed. All questions answered in detail. Counseling over 50% visit regarding above. Patient appreciative of care. 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 * Personal review of ECG and cardiac data reviewed . * Outside records: * OV with me December 2021 * Device check December 2021 * ECG December 2021 * Device Check: Today. [employer] 2272 pacemaker. Estimate longevity device over [...] treatment options, risks, benefits, and i mponderables. [employer] lifestyle changes and behavioral modification discussed. All questions answered in detail. Counseling over 50% visit regarding above. Patient appreciative of care. 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 * Personal review of ECG and cardiac [...] treatment options, risks, benefits, and i mponderables. [employer] lifestyle changes and behavioral modification discussed. All questions answered in detail. Counseling over 50% visit regarding above. Patient appreciative of care. [facility] DO Work Phone: History of Present [...] * Device Check: Today. [employer] 5582 pacemaker. On field alert. Discussed field alert [...] needed, treatment options, risks, benefits, and imponderables. [employer] lifestyle changes and behavioral modification discussed. All questions answered in detail. Counseling over 50% visit regarding above. Patient appreciative of care. [facility] DO Work Phone: [facility] Work Phone: Hospital Discharge instructions Additional Instructions Regular Diet No Activity [facility]ions[facility] Work Phone: Hospital Discharge instructions Additional Instructions Obtain BP cuff at pharmacy and obtain BP at home twice daily after resting for ten minutes prior to performing. Call Labor and Delivery for BP elevated 150/100 x 2 readings. Return Thursday08/05/2022 at 0900 for NST and BP check.[facility] Work Phone: Hospital Discharge instructions No data available for this section [facility] Hospital Discharge instructions Additional Instructions No Activity Restrictions Regular Diet continue your vitamin therapy after gastric surgery as prescribed. Your vitamin D and B12 were found low while you were i the hospital.[facility] Work Phone: Progress note No data available for this section [facility] reason for visit Narrative* Imaging (Routine) - Pending Review Specialty Diagnoses / Procedures Referred By Laura nicole Referred To Contact Cardiology Diagnoses Pacemaker Sick sinus syndrome (Multi) Procedures Cardiac Device Check - Remote Rita Olivia MD [address] Office [facility], [address] [address] Phone: tel: fax: Referral ID Status Reason Start Date Expiration Date Visits Requested Visits Authorized [id number] Pending Review Perform Procedure 05/25/2024 05/25/2025 1 1 [facility] Work Phone: Summary Purpose Family History [...] FoundDocuments on File Type Date Recorded Patient Glove Brusher Expl anation Advance Directives and Living Will Power of Pediatric Immunologist Documents on File Type Date Recorded Patient Glove Brusher Expl anation Advance Directive(s) Advance Directive(s) 11/09/2020 [...] follow-up.Patient here for 6 month follow-up with [facility]. She is 16 weeks Patient here for [...] ) P dizzy headache abd pain n/v [facility] Reason for Visit Chiari malformation type I History of induced hypertension Schizoaffective disorder Auditory hallucination Depression with suicidal ideation Schizoaffective disorder Suicide ideation Auditory hallucinations Chief Complaint iup 37 weeks IUP (Intrauterine ) P dizzy headache abd pain n/v [facility] Reason for Visit Schizoaffective diso rder Auditory hallucination Depression with suicidal ideation Schizoaffective disorder Suicide ideation Auditory hallucinations Gastroparesis Nausea & vomiting Schizoaffective disorder Chief Complaint dizzy headache abd pain n/v [facility] Reason for Visit Auditory hallucinati ons Gastroparesis Nausea & vomiting Schizoaffective disorder Chief Complaint dizzy headache abd pain n/v [facility] Reason for Visit Auditory hallucinati ons Gastroparesis Nausea & vomiting Schizoaffective disorder Schizoaffective disorder Suicide ideation Chief Complaint dizzy headache abd pain n/v [facility] mri clearance Reason for Visit Auditory hallucinati ons Gastroparesis Nausea & vomiting Schizoaffective disorder Schizoaffective disorder Suicide ideation Chief Complaint [facility] mri clearance N28.89 Reason for Visit [...] - Remote Rita Olivia MD [address] [facility] Office [facility], [place] [address] Referral ID Status Reason Start Date Expiration Date Visits Requested Visits Authorized [id number] Pending Review Perform Procedure 04/24/2023 04/23/2024 1 1 Additional Source Comments INFORMATION SOURCE (unrecogn ized section and content) DATE CREATED AUTHOR 05/13/2019 [facility] DATE CREATED AUTHOR AUTHOR'S ORGANIZ ATION 09/27/2019 [facility] DATE CREATED AUTHOR AUTHOR'S ORGANIZ ATION [facility] DATE CREATED AUTHOR AUTHOR'S ORGANIZ ATION 11/18/2020 [facility] DATE CREATED AUTHOR AUTHOR'S ORGANIZ ATION 09/20/2021 [facility] DATE CREATED AUTHOR AUTHOR'S ORGANIZ ATION 10/31/2022 [facility] DATE CREATED AUTHOR AUTHOR'S ORGANIZ ATION 01/21/2023 [facility] DATE CREATED AUTHOR AUTHOR'S ORGANIZ ATION 01/22/2023 [facility] DATE CREATED AUTHOR AUTHOR'S ORGANIZ ATION 03/05/2023 [facility] DATE CREATED AUTHOR AUTHOR'S ORGANIZ ATION 11/06/2023 [facility] DATE CREATED AUTHOR AUTHOR'S ORGANIZ ATION 07/08/2024 [facility] DATE CREATED AUTHOR AUTHOR'S ORGANIZ ATION 07/28/2024 [facility] DATE CREATED AUTHOR AUTHOR'S ORGANIZ ATION 09/03/2024 [facility] DATE CREATED AUTHOR AUTHOR'S ORGANIZ ATION 09/08/2024 [facility] Source Comments (unrecognize d section and content) In the event this informatio n is protected by the Federal Confidentiality of Alcohol and Drug Abuse Patient Records regulations: The Federal rules restrict any use of the information to criminally investigate or prosecute any alcohol or drug abuse patient.[facility] the event this information is protected by the Federal Confidentiality of Alcohol and Drug Abuse Patient Records regulations: The Federal rules restrict any use of the information to criminally investigate or prosecute any alcohol or drug abuse patient.[facility] Reason for Visit (unrecogniz ed section and content) Reason Comments Patient Update Specialty Diagnoses / Procedures Referred By Contac t Referred To Contact Cardiology Diagnoses Pacemaker Sick sinus syndrome (CMS/HCC) Procedures Cardiac Device Check - Remote Rita Olivia MD [address] [facility] [address], [address] [place] [address] Referral ID Status Reason Start Date Expiration Date Visits Requested Visits Authorized [id number] Pending Review Perform Procedure 04/24/2023 04/23/2024 1 1 Specialty Diagnoses / Procedures Referred By Contac t Referred To Contact Cardiology Diagnoses Pacemaker Sick sinus syndrome (CMS/HCC) Procedures [place] - [place] [address] [facility] [address] [place] [address] Specialty Diagnoses / Procedures Referred By Contac t Referred To Contact Cardiology Diagnoses Pacemaker Sick sinus syndrome (Multi) Procedures Cardiac Device Check - Remote Rita Olivia MD [facility] [address] [facility] Medical Office [facility], [facility] [address] [place] [address] Care Teams (unrecognized sec tion and content) [...] November 12, 2023 End: November 12, 2023 Trestleman Relationship Specialty Start Date End Date Viktor Sotelo MD [address] [place] [phone] PCP - General 10/18/13 Trestleman Relationship Specialty Start Date End Date Viktor Sotelo MD [address] [facility] [place] [phone] PCP - General 10/18/13 Team Status: Inactive [...] Primary Care Provider Active Chelsie Cortez , SAND SLINGER OPERATOR Emergency Provider Active Team Status: Active Member [...] MD Other Provider Active Urmila Paiz , SAND SLINGER OPERATOR Other Provider Active Mahad Mandel , DO [...] MD Other Provider Active Gretta Maki , LAMP DECORATOR-C Other Provider Active Yonny Bazan MD Other Provider Active Trace Morataya MD Other Provider Active Dimitris Joe MD Other Provider Active Verona Waterman , DO Other Provider Active All Bloom , DO Other Provider Active Joe Holland , DO Other Provider Active Candice Roman SAND SLINGER OPERATOR Other Provider Active Rosendo Holland , DO Other Provider Active Harriet Andrade MD Other Provider Active Chaparrita Mcnair , SAND SLINGER OPERATOR Other Provider Active Sheri Montana , SAND SLINGER OPERATOR Other Provider Active Genesis Pinedo , BRANDIE [...] Active Eduardo Swain MD Admit Provider Active Trestleman Relationship Specialty Start Date End Date Viktor Sotelo MD PCP - General 03/02/20 Trestleman Relationship Specialty Start Date End Date Viktor Sotelo MD PCP - General 03/02/20 Trestleman Relationship Specialty Start Date End Date Viktor Sotelo MD [address] [place] [id number] PCP - General 03/02/20 Trestleman Relationship Specialty Start Date End Date Viktor Sotelo MD [address] [place] [address] PCP - General 03/02/20 Trestleman Relationship Specialty Start Date End Date Viktor Sotelo MD [address] [place] [id number] PCP - General 03/02/20 Goals (unrecognized section [...] BE BASED ON THE PRIMARY CLINICAL RECORDS. [facility] [employer] [facility] [employer] [facility]. provides no warranty or guarantee of the accuracy or completeness of information in this document.
[2024-09-26 07:39] VITALS: BP 133/91; PULSE 80; TEMP 36.2; O2SAT 98
[2024-09-26 07:43] LABS: HCG Qualitative NEGATIVE (NEGATIVE); Internal Control Within Normal Limits
[2024-09-26 07:45] LABS: Prothrombin Time 16.2 sec (9.0-11.6)
[2024-09-26 08:35] VITALS: BP 124/81; BP 130/78; PULSE 62; PULSE 68; O2SAT 92; O2SAT 95
[2024-09-26] MEDS: IOHEXOL 240 MG/ML - 10 ML VIAL 24 MG INJ (08:39)
[2024-09-26] MEDS: BUPIVACAINE HCL 0.25% PF 25 MG/10 ML VIAL INJ (08:39)
[2024-09-26] MEDS: DEXAMETHASONE SOD PHOS 10 MG/ML VIAL INJ (08:39)
[2024-09-26] MEDS: LIDOCAINE HCL 2% 400 MG/20 ML MDV 3 ML INJ (08:40)
--- NOTE | 2024-09-26 08:42 | W.PM.PROCNOT ---
Date of procedure: 09/26/24 Pre-op diagnosis: M54.12 Post-op diagnosis: same as pre-op Procedure: Procedure: Bilateral C5-6 transforaminal epidural steroid injection Medications: Bupivacaine 0.25% 1cc, lidocaine 2% 1cc, dexamethasone 10mg The patient was seen and examined in the preoperative holding area.? Informed consent was obtained and placed on the chart.? Patient was brought to the medical procedure unit and placed in the prone position where a timeout was completed verifying the correct patient, procedure site, position, and planned special equipment using sterile aseptic technique.? Under direct fluoroscopic visualization a 25-gauge Quincke tipped spinal needle was advanced at level left C5-6 to the designated neural foramen where contrast dye was injected to show adequate spread.? There was no evidence of vascular or adverse uptake.? Epidural spread was appreciated.? The above-mentioned injectate was then placed in a 1.5 mL aliquot preceded by negative aspiration.? The needle was removed. The same procedure, at the same level, was completed on the opposite side. ? Patient was taken to the postprocedural recovery area and monitored for an appropriate length of time before found suitable for discharge in the accompaniment of a responsible adult. Anesthesia: Local Surgeon: Tete Snell Pathology: none sent Condition: stable Disposition: no change
== END 2024-09-26 08:46 | disposition home or self-care (01) ==
LOC: SURGOUT 07:11
PROVIDERS: PCP Family Medicine; Visit Provider Anesthesiology
DX: M54.12 Radiculopathy, cervical region (principal)
CPT/HCPCS: 36415; 64479; 84703; 85610; J0665; J1100; Q9966

== ENCOUNTER 2024-10-05 11:07 | Outpatient (OUT) | payer MEDICARE, SELFPAY ==
--- NOTE | 2024-10-05 11:24 | PM.CN ---
Consult Note: HPI Data of Consult Patient: known to practice within the last 3 years Requesting Physician: Yareli Phillips NP Primary Care Provider: Sharyn Bradford MD Consult Narrative Reason for consult: neck pain Narrative: 43yof who presents for assessment. continues to have neck pain with radiation into bilateral upper extremities. recently underwent cervical MRI which is consistent with her symptoms as noted below. physical therapy was ordered and patient attended first session, but she was told that given her chiari malformation, it was too risky for them to proceed with any further cervical therapy. currently utilizing gabapentin 600mg TID with mild benefit, denies adverse med side effects. continues to utilize otc tylenol PRN. recently underwent C5-6 TFESI with no improvement in neck pain, however pt reports little to no radicular pain since DOMINICK. cc:: CC: Yareli Phillips NP Review of Systems ROS Status of ROS 10 or more systems reviewed and unremarkable except as noted in history and below Musculoskeletal Reports: neck pain and extremity pain PFSH PFSH Medical History Hypertension ?I10 - Essential (primary) hypertension (ICD-10) Schizophrenia ?F20.9 - Schizophrenia, unspecified (ICD-10) DVT (deep venous thrombosis) ?I82.409 - Acute embolism and thrombosis of unspecified deep veins of unspecified lower extremity (ICD-10) Obesity ?E66.9 - Obesity, unspecified (ICD-10) Pacemaker ?Z95.0 - Presence of cardiac pacemaker (ICD-10) Sick sinus syndrome due to SA node dysfunction ?I49.5 - Sick sinus syndrome (ICD-10) Gastroparesis ?K31.84 - Gastroparesis (ICD-10) Surgical History S/P reconstruction of ligament of knee ?Z98.890 - Other specified postprocedural states (ICD-10) History of cholecystectomy ?Z90.49 - Acquired absence of other specified parts of digestive tract (ICD-10) Hx of appendectomy ?Z90.49 - Acquired absence of other specified parts of digestive tract (ICD-10) Social History Within the past year, how often did you have a drink containing alcohol: never Score interpretation: A score less than 3 is consistent with normal alcohol consumption. Smoking status: Never smoker Non-prescribed substance use: denies use Highest level of school completed/degree received: high school graduate Are you now , , , , never or living with a partner: living with partner Little interest or pleasure in doing things: not at all Feeling down, depressed, or hopeless: not at all Feel stressed/tense/nervous/anxious/difficulty sleeping: only a little Life stressor details: new baby at age of 42 Do you think of yourself as: straight/heterosexual Gender Identity: female Meds Home Medications and Allergies Home Medications ?Medication ?Instructions ?Recorded ?Confirmed ?Type aripiprazole 30 mg tablet 30 mg PO DAILY 10/26/23 09/26/24 History benztropine 1 mg tablet 1 mg PO BID 10/26/23 09/26/24 History metoprolol succinate 25 mg 25 mg PO DAILY 10/26/23 09/26/24 History tablet,extended release 24 hr mirtazapine 15 mg tablet 15 mg PO .HS 10/26/23 09/26/24 History olanzapine 5 mg tablet 5 mg PO .qd PRN hallucinations 10/26/23 09/26/24 History paliperidone palmitate 234 mg/1.5 234 mg IM Q30D 10/26/23 09/26/24 History mL intramuscular syringe (Invega Sustenna) venlafaxine 150 mg 150 mg PO DAILY 10/26/23 09/26/24 History capsule,extended release 24 hr warfarin 5 mg tablet 5 mg PO DAILY 03/21/24 09/26/24 History gabapentin 400 mg capsule 600 mg PO TID 09/15/24 09/26/24 History Allergies Allergy/AdvReac Type Severity Reaction Status Date / Time hydromorphone (From Dilaudid) Allergy Mild itching Verified 09/26/24 07:43 Exam Constitutional Documenting provider has reviewed patient's vital signs: yes Common normals: no apparent distress, oriented x3, healthy appearing, alert and well nourished General appearance: cooperative [facility] Common normals: normocephalic, hearing grossly normal bilaterally and moist oral mucous membranes Head and scalp: normocephalic Eye Common normals: PERRL Pupil: PERRL Neck & C-Spine Common normals: full ROM General: normal visual inspection Cervical spine: cervical ROM abnormal, pain with cervical ROM and cervical spine tenderness C3, C4 and C5 Other: negative spurlings strength 5/5 in BUE sensation intact BUE Chest Common normals: inspection of chest normal Respiratory Common normals: normal respiratory effort, no retractions and no use of accessory muscles Neuro Common normals: oriented x3 Sensorium/orientation: alert Psych Common normals: mental status grossly normal, thought process normal, cooperative, affect normal, speech normal and activity/motor behavior normal Speech: normal speech Thought process: normal thought process Results Imaging Cervical MRI : Attestation: I have reviewed the pertinent imaging results. Radiologist's impression: C2-5 no significant disease, central canal, neural foramen identified. mild multilevel facet arthropathy. left C4-5 adjacent perifacet edema and trace edema C5-6 minimal broad based disc bulge with minimal canal narrowing with mild facet arthropathy Assessment and Plan Assessment and Plan (1) Cervical stenosis of spinal canal: Assessment and Plan: CLAUDIA 40% with moderate to severe pain impacting ADLs, sleep, social life, travel 09/26/24 bilateral C5-6 TFESI with no improvement per pt, however significant improvement in radicular symptoms on exam (2) Cervical radiculopathy: (3) Chiari malformation type I: (4) Cervical spondylosis: Assessment and Plan: The patient has had over 3 months of moderate to severe axial facet mediated neck pain with functional impairment and inadequate response to conservative care including NSAIDS (unless there are contraindication such as concurrent blood thinners), multiple oral or topical pain medications, and home exercise program/physical therapy.? Patient has completed >6 weeks of guided home exercise program and/or formal physical therapy program without relief of their symptoms.? We discussed the risks and benefits of the procedure with the patient, and we are NOT planning on using sedation as outlined in the guidelines from Medicare unless there is a documented reason that sedation would be strongly recommended.?? ?The procedure will be completed with fluoroscopic guidance.? Plan bilateral C3-4 C4-5 facet medial branch block x2 working towards RFA for axial facet mediated neck pain greater than 3 months continue gabapentin 600mg TID continue HEP as tolerated f/u after each injection
== END 2024-10-05 11:08 | disposition home or self-care (01) ==
LOC: PM 11:07
PROVIDERS: PCP Family Medicine; Visit Provider Nurse Practitioner
DX: M48.02 Spinal stenosis, cervical region (principal); M54.12 Radiculopathy, cervical region; G93.5 Compression of brain; M47.812 Spondylosis without myelopathy or radiculopathy, cervical region
CPT/HCPCS: G0463

== ENCOUNTER 2024-10-20 04:52 | Outpatient (RCR) | payer MEDICARE, MEDICAID, SELFPAY | END 2024-11-19 07:18 | disposition home or self-care (01) | LOC: MM 04:52 | PROVIDERS: PCP Family Medicine; Visit Provider Internal Medicine | DX: Z51.81 Encounter for therapeutic drug level monitoring (principal); Z79.01 Long term (current) use of anticoagulants | CPT/HCPCS: 85610; G0463 ==

== ENCOUNTER 2024-10-31 09:47 | Outpatient (OUT) | payer MEDICARE, MEDICAID, SELFPAY ==
[2024-10-31 10:07] LABS: Basophils Percent Auto 0.7 % (0.2-2.0); Eosinophils Percent Auto 0.7 % (0.9-7.0); Hematocrit 39.6 % (36.0-48.0); Hemoglobin 13.5 g/dL (12.0-16.0); Lymphocytes Percent Auto 34.5 % (20.5-60.0); Mean Corpuscular HGB Conc 34.1 g/dL (29.9-35.2); Mean Corpuscular Hemoglobin 33.8 pg (26.7-34.0); Mean Corpuscular Volume 99.2 fL (81.0-99.0); Mean Platelet Volume 9.7 fL (9.5-13.5); Monocytes Absolute Auto 0.5 10^3/uL (0.3-0.8); Monocytes Percent Auto 18.7 % (1.7-12.0); Neutrophils Absolute Auto 1.3 10^3/uL (1.4-6.5); Neutrophils Percent Auto 45.4 % (43.0-75.0); Platelet Count 113 10^3/uL (150-450); Red Blood Count 3.99 10^6/uL (4.20-5.40); Red Cell Distribution Width 12.2 % (11.0-15.0); White Blood Count 2.8 10^3/uL (4.0-11.0)
[2024-10-31 10:22] LABS: Anion Gap 7.7; BUN Creatinine Ratio 7.5; Calcium 8.8 mg/dL (8.5-10.1); Carbon Dioxide 28.6 mmol/L (21.0-32.0); Chloride 104 mmol/L (98-107); Estimated GFR (African America >60 (>=60 mL/min/1.73m^2); Estimated GFR (Non-African Ame 57 (>=60 mL/min/1.73m^2); Glucose 132 mg/dL (74-106); Potassium 3.3 mmol/L (3.5-5.1); Sodium 137 mmol/L (136-145)
[2024-10-31 10:36] LABS: Percent Iron Saturation 19.3 %
[2024-11-01 04:07] LABS: Vitamin B12 655 pg/mL (232-1245)
== END 2024-10-31 09:48 | disposition home or self-care (01) ==
LOC: LAB 09:49
PROVIDERS: PCP Family Medicine; Visit Provider Internal Medicine Hematology & Oncology
DX: I26.99 Other pulmonary embolism without acute cor pulmonale (principal); D68.69 Other thrombophilia; D64.9 Anemia, unspecified; K90.9 Intestinal malabsorption, unspecified; I82.402 Acute embolism and thrombosis of unspecified deep veins of left lower extremity; D50.9 Iron deficiency anemia, unspecified; D51.9 Vitamin B12 deficiency anemia, unspecified
CPT/HCPCS: 36415; 80048; 82306; 82607; 82728; 83540; 83550; 85025

== ENCOUNTER 2024-11-01 07:39 | Outpatient (RCR) | payer MEDICARE, MEDICAID, SELFPAY | END 2024-11-02 08:06 | disposition home or self-care (01) | LOC: HEMC 07:39 | PROVIDERS: PCP Family Medicine; Visit Provider Internal Medicine Hematology & Oncology | DX: I26.99 Other pulmonary embolism without acute cor pulmonale (principal); D68.69 Other thrombophilia; D64.9 Anemia, unspecified; K90.9 Intestinal malabsorption, unspecified; I82.402 Acute embolism and thrombosis of unspecified deep veins of left lower extremity; D50.9 Iron deficiency anemia, unspecified; D51.9 Vitamin B12 deficiency anemia, unspecified; Z90.49 Acquired absence of other specified parts of digestive tract; Z95.0 Presence of cardiac pacemaker; Z90.3 Acquired absence of stomach [part of] | CPT/HCPCS: G0463 ==

== ENCOUNTER 2024-11-20 08:23 | Outpatient (RCR) | payer MEDICARE, MEDICAID, SELFPAY | END 2024-12-15 15:07 | disposition home or self-care (01) | LOC: MM 08:23 | PROVIDERS: PCP Family Medicine; Visit Provider Internal Medicine | DX: Z51.81 Encounter for therapeutic drug level monitoring (principal); Z79.01 Long term (current) use of anticoagulants | CPT/HCPCS: 85610; G0463 ==

== ENCOUNTER 2024-12-04 21:14 | Emergency (ER) | payer MEDICARE, MEDICAID, SELFPAY ==
--- OUTSIDE RECORDS SUMMARY | 2024-07-05 05:00 | XMS_ITS ---
Author Organization [facility] [place] Address [address] [place] [address] Care Team Providers Care Editor Managing Director Name Role Phone EMY LEMUS Primary Care Provider Unavailabl Emy Chu Unavailable [phone] REASON FOR VISIT MD Encounters Encounter Location Date Provider Diagnosis [facility] Oncology [address] [place] [address] 07/05/2024 Emy Lemus Plan Of Treatment Next Appt Details Provider Name:Emy Lemus , 01/10/2025 10:30:00 AM, [address] [place], [address], Progress Notes * Maricarmen ANDERSONDOB: 3 (44 yo F)Acc No.[id number]:07/05/2024 UNLOCKED PROGRESS NOTE Progress Notes Patient: Maricarmen SILVA Provider: Harpreet Lemus M.D. :1980 A ge:43 Y S ex:Female Date:07/05/2024 Address:[address] [place], [place] [id number] Pcp:EMY LEMUS Subjective: * Chief Complaints: * 1 . MD. * Medical History: Objective: * Vitals: Assessment: Plan: * Treatment: * * Electronic signature of Treasure Lemus MD, [id number] on 12/04/2024 at 09:19 PM EDT Sign off status: Pending Visit Status: V OICEMSG (Voice) * Provider: Harpreet Lemus M.D. Date: 0 07/05/2024 Generated for Suhas simmons/Dexter/Yann on: 0 12/04/2024 09:19 PM EDT
--- OUTSIDE RECORDS SUMMARY | 2024-08-30 06:30 | XMS_ITS ---
Author Organization [facility] [place] Address [address] [place] [address] Care Team Providers Care Claim Adjuster Name Role Phone EMY LEMUS Primary Care Provider Unavailabl Emy Chu Unavailable [phone] REASON FOR VISIT MD Encounters Encounter Location Date Provider Diagnosis [facility] [address] [place] [address] 08/30/2024 Emy Lemus Plan Of Treatment Next Appt Details Provider Name:Emy Lemus , 01/10/2025 10:30:00 AM, [address] [place], [address], Progress Notes * Maricarmen ANDERSONDOB: 3 (44 yo F)Acc No.[id number]:08/30/2024 UNLOCKED PROGRESS NOTE Progress Notes Patient: Maricarmen SILVA Provider: Harpreet Lemus M.D. :1980 A ge:43 Y S ex:Female Date:08/30/2024 Address:[address] [place], [place] [id number] Pcp:EMY LEMUS Subjective: * Chief Complaints: * 1 . MD. * Medical History: Objective: * Vitals: Assessment: Plan: * Treatment: * * Electronic signature of Treasure Lemus MD, [id number] on 12/04/2024 at 09:18 PM EDT Sign off status: Pending Visit Status: A [facility] (Voice) * Provider: Harpreet Lemus M.D. Date: 0 08/30/2024 Generated for Suhas simmons/Dexter/Yann on: 0 12/04/2024 09:18 PM EDT
[2024-12-04 21:19] VITALS: BP 146/90; PULSE 88; TEMP 36.7; O2SAT 95; BMI 42.0
--- OUTSIDE RECORDS SUMMARY | 2024-12-04 21:19 | XMS_ITS | Encounter Summary ---
Author Organization [facility] Address [address] [place] [address] Care Team Providers Care Conference Reservationist Name Role Phone Sharyn Bradford MD Primary Care Provider [phone] Source Comments In the event this information is protected by the Federal Confidentiality of Alcohol and Drug AbusePatient Records regulations: The Federal rules restrict any use of the information to criminally investigate or prosecute any alcohol or drug abuse patient.[facility] Encounter Details Date Type Department Care Team (Late st Contact Info) Description 03/24/2019 Patient Msg Medical Records [address] [place] [phone] Provider, [facility] Prescribed Patient Education Video(s) Social History Tobacco Use Types Packs/Day Years Used Date Smoking Tobacco: Never Smokeless Tobacco: Never Alcohol Use Standard Drinks/Week Comments No 0 (1 standard drink = 0.6 oz pur e alcohol) Comments No Sex and Gender Information Value Date Recorded Sex Assigned at Female 10/18/2020 8:13 PM EDT Legal Sex Female 9:42 AM EST Gender Identity Female 10/18/2020 8:13 PM EDT Sexual Orientation Straight 10/18/2020 8: 13 PM EDT documented as of this encounter Functional Status * Are you deaf or do you have serious difficulty hearing? Answer Date of Assessment Author No 03/13/2019 3:57 PM EDT ShiraMiguelangel harrington, DUANE.CUSTOMER EXPERT * Are you blind or do you have serious difficulty seeing, even when wearing glasses? Answer Date of Assessment Author No 03/13/2019 3:57 PM EDT ShiraMiguelangel harrington, DUANE.CUSTOMER EXPERT * Do you have serious difficulty walking or climbing stairs? Answer Date of Assessment Author No 03/13/2019 3:57 PM EDT ShiraMiguelangel harrington, GREASE CUP FILLER.CUSTOMER EXPERT * Do you have difficulty dressing or bathing? Answer Date of Assessment Author No 03/13/2019 3:57 PM EDT ShiraMiguelangel, DUANE.CUSTOMER EXPERT * Because of a physical, mental, or emotional condition, do you have difficulty doing errands alone such as visiting a doctor's office or shopping? Answer Date of Assessment Author No 03/13/2019 3:57 PM EDT Miguelangel Silva APRN.CUSTOMER EXPERT documented as of this encounter Mental Status * Because of a physical, mental, or emotional condition, do you have serious difficulty concentrating, remembering, or making decisions? Answer Entry Date Author No 03/13/2019 3:57 PM EDT Miguelangel Silva, GREASE CUP FILLER.CUSTOMER EXPERT documented in this encounter Plan of Treatment Not on file documented as of this encounter Visit Diagnoses Not on filedocumented in this encounter Additional Health Concerns Infection Onset Date Last Indicated Resolved Time COVID-19 Rule-Out 05/25/2020 05/26/2020 05/27/2020 3:34 AM EST COVID-19 Rule-Out 09/28/2020 09/28/2020 09/29/2020 2:20 PM EDT COVID-19 Rule-Out 11/09/2020 11/09/2020 11/09/2020 9:02 PM EDT documented as of this encounter Care Teams Conference Reservationist Relationship Specialty Start Date End Date Sharyn Bradford MD [address] [place] [address] PCP - General 10/18/13 documented as of this encounter
--- OUTSIDE RECORDS SUMMARY | 2024-12-04 21:19 | XMS_ITS | Encounter Summary ---
Author Organization [facility] Address [address] [place] [address] Care Team Providers Care Hospital Food Service Worker Name Role Phone Sharyn Bradford MD Primary Care Provider [phone] Source Comments In the event this information is protected by the Federal Confidentiality of Alcohol and Drug AbusePatient Records regulations: The Federal rules restrict any use of the information to criminally investigate or prosecute any alcohol or drug abuse patient.[facility] Encounter Details Date Type Department Care Team (Late st Contact Info) Description 04/15/2019 Patient Msg Colorectal Surgery [address] [place] [address] Mary Miranda, PhD [address] [place] [address] RE: Appointment Cancellation Request Social History Tobacco Use Types Packs/Day Years [...] hearing? Answer Date of Assessment Author No 04/10/2019 11:47 AM Fiordaliza Gresham RN * Are you blind or do you have serious difficulty seeing, even when wearing glasses? Answer Date of Assessment Author No 04/10/2019 11:47 AM Fiordaliza rGesham RN * Do you have serious difficulty walking or climbing stairs? Answer Date of Assessment Author Yes 04/10/2019 11:47 AM Fiordaliza Gresham RN * Do you have difficulty dressing or bathing? Answer Date of Assessment Author No 04/10/2019 11:47 AM Fiordaliza Gresham RN * Because of a physical, mental, or emotional condition, do you have difficulty doing errands alone such as visiting a doctor's office or shopping? Answer Date of Assessment Author Yes 04/10/2019 11:47 AM Fiordaliza Gresham RN documented as of this encounter Mental Status * Because of a physical, mental, or emotional condition, do you have serious difficulty concentrating, remembering, or making decisions? Answer Entry Date Author No 04/10/2019 11:47 AM Fiordaliza Gresham RN documented in this encounter Plan of Treatment [...] documented as of this encounter Care Teams Hospital Food Service Worker Relationship Specialty Start Date End Date Sharyn Bradford MD [address] [place] [address] PCP - General 10/18/13 documented as of this encounter
--- OUTSIDE RECORDS SUMMARY | 2024-12-04 21:19 | XMS_ITS | Encounter Summary ---
Author Organization [facility] Address [address] [place] [address] Care Team Providers Care Legal Technician Name Role Phone Sharyn Bradford MD Primary Care Provider [phone] Source Comments In the event this information is protected by the Federal Confidentiality of Alcohol and Drug AbusePatient Records regulations: The Federal rules restrict any use of the information to criminally investigate or prosecute any alcohol or drug abuse patient.[facility] Encounter Details Date Type Department Care Team (Late st Contact Info) Description 03/24/2019 Patient Msg Medical Records [address] [place] [id number] Provider, [facility] Prescribed Patient Education Video(s) Social [...] No 03/13/2019 3:57 PM EDT ShiraMiguelangel harrington, DUANE.PRIVACY OFFICER * Are you blind or do you have serious difficulty seeing, even when wearing glasses? Answer Date of Assessment Author No 03/13/2019 3:57 PM EDT ShiraMiguelangel harrington, DUANE.PRIVACY OFFICER * Do you have serious difficulty walking or climbing stairs? Answer Date of Assessment Author No 03/13/2019 3:57 PM EDT ShiraMiguelangel harrington, DYE HOUSE HAND.PRIVACY OFFICER * Do you have difficulty dressing or bathing? Answer Date of Assessment Author No 03/13/2019 3:57 PM EDT ShiraMiguelangel, DUANE.PRIVACY OFFICER * Because of a physical, mental, or emotional condition, do you have difficulty doing errands alone such as visiting a doctor's office or shopping? Answer Date of Assessment Author No 03/13/2019 3:57 PM EDT Miguelangel Silva APRN.PRIVACY OFFICER documented as of this encounter Mental Status * Because of a physical, mental, or emotional condition, do you have serious difficulty concentrating, remembering, or making decisions? Answer Entry Date Author No 03/13/2019 3:57 PM EDT Miguelangel Silva, DYE HOUSE HAND.PRIVACY OFFICER documented in this encounter Plan of Treatment [...] documented as of this encounter Care Teams Legal Technician Relationship Specialty Start Date End Date Sharyn Bradford MD [address] [place] [address] PCP - General 10/18/13 documented as of this encounter
--- OUTSIDE RECORDS SUMMARY | 2024-12-04 21:19 | XMS_ITS | Encounter Summary ---
Author Organization [facility] Address [address] [place] [address] Care Team Providers Care [facility] Pricing Consultant Name Role Phone Sharyn Bradford MD Primary Care Provider [phone] Source Comments In the event this information is protected by the Federal Confidentiality of Alcohol and Drug AbusePatient Records regulations: The Federal rules restrict any use of the information to criminally investigate or prosecute any alcohol or drug abuse patient.[facility] Encounter Details Date Type Department Care Team (Late st Contact Info) Description 08/06/2018 Get Medical Advice Gastroenterology [facility] [address] [id number] Dennis Gibson DO [facility] [address] [place] [address] RE: Non-Urgent Medical Question Social History Tobacco Use Types Packs/Day Years [...] hearing? Answer Date of Assessment Author No 08/02/2014 1:39 PM EST Nissa Goldberg LPN * Are you blind or do you have serious difficulty seeing, even when wearing glasses? Answer Date of Assessment Author No 08/02/2014 1:39 PM EST Nissa Goldberg LPN * Do you have serious difficulty walking or climbing stairs? Answer Date of Assessment Author No 08/02/2014 1:39 PM EST Nissa Goldberg LPN * Do you have difficulty dressing or bathing? Answer Date of Assessment Author No 08/02/2014 1:39 PM EST Nissa Goldberg LPN * Because of a physical, mental, or emotional condition, do you have difficulty doing errands alone such as visiting a doctor's office or shopping? Answer Date of Assessment Author No 08/02/2014 1:39 PM Nissa Pollard LPN documented as of this encounter Mental Status * Because of a physical, mental, or emotional condition, do you have serious difficulty concentrating, remembering, or making decisions? Answer Entry Date Author No 08/02/2014 1:39 PM Nissa Pollard LPN documented in this encounter Plan of Treatment [...] documented as of this encounter Care Teams Healthcare [facility] Pricing Consultant Relationship Specialty Start Date End Date Sharyn Bradford MD [address] [place] [address] PCP - General 10/18/13 documented as of this encounter
--- OUTSIDE RECORDS SUMMARY | 2024-12-04 21:19 | XMS_ITS | Encounter Summary ---
Author Organization [facility] Address [address] [place] [address] Care Team Providers Care Gis Software Developer Name Role Phone Sharyn Bradford MD Primary Care Provider [phone] Source Comments In the event this information is protected by the Federal Confidentiality of Alcohol and Drug AbusePatient Records regulations: The Federal rules restrict any use of the information to criminally investigate or prosecute any alcohol or drug abuse patient.[facility] Encounter Details Date Type Department Care Team (Late st Contact Info) Description 03/23/2019 Patient Msg General Surgery [facility] [address] [id number] Provider, [facility] Gut Rehab appointment Social History Tobacco Use Types Packs/Day Years [...] Author No 03/13/2019 3:57 PM EDT ShiraMiguelangel harrington APRN.GUEST HOUSE MANAGER * Are you blind or do you have serious difficulty seeing, even when wearing glasses? Answer Date of Assessment Author No 03/13/2019 3:57 PM EDT ShiraMiguelangel harrington APRN.GUEST HOUSE MANAGER * Do you have serious difficulty walking or climbing stairs? Answer Date of Assessment Author No 03/13/2019 3:57 PM EDT ShiraMiguelangel harrington APRN.GUEST HOUSE MANAGER * Do you have difficulty dressing or bathing? Answer Date of Assessment Author No 03/13/2019 3:57 PM EDT ShiraMiguelangel harirngton APRN.GUEST HOUSE MANAGER * Because of a physical, mental, or emotional condition, do you have difficulty doing errands alone such as visiting a doctor's office or shopping? Answer Date of Assessment Author No 03/13/2019 3:57 PM EDT Miguelangel Silva APRN.GUEST HOUSE MANAGER documented as of this encounter Mental Status * Because of a physical, mental, or emotional condition, do you have serious difficulty concentrating, remembering, or making decisions? Answer Entry Date Author No 03/13/2019 3:57 PM EDT Miguelangel Silva APRN.GUEST HOUSE MANAGER documented in this encounter Plan of Treatment [...] documented as of this encounter Care Teams Gis Software Developer Relationship Specialty Start Date End Date Sharyn Bradford MD [address] [place] [address] PCP - General 10/18/13 documented as of this encounter
--- OUTSIDE RECORDS SUMMARY | 2024-12-04 21:19 | XMS_ITS | Clinical Summary ---
Author Organization [facility] Address [address] [place] [address] Care Team Providers Care Restaurant Delivery Driver Name Role Phone Sharyn Bradford MD Primary Care Provider [phone] Allergies Active Allergy Reactions Criticality Noted Date Comments Hydromorphone Hcl Itching 10/29/2023 Medications ARIPiprazole (ABILIFY) 30 MG tablet Take 1 tablet by mouth daily Active mirtazapine (REMERON PHOENIX-TAB) 15 MG disintegrating tablet Take 1 tablet by mouth nightly 1.5 tab at bedtime Active benztropine (COGENTIN) 1 MG tablet Take 1 tablet by mouth 2 times daily Active venlafaxine (EFFEXOR XR) 150 MG extended release capsule Take 1 capsule by mouth daily Active OLANZapine (ZYPREXA) 5 MG tablet Take 1 tablet by mouth daily as needed (take if having hallucinations) Active NONFORMULARY Inject 234 mg as directed every 30 days Invega Sustena 234mg/1.5ml Active apixaban starter pack (ELIQUIS DVT/PE STARTER PACK) 5 MG TBPK tablet Take 1 tablet by mouth See Admin Instructions 74 tablet 10/31/19 24 Active Active Problems Problem Noted Date Diagnosed Date Pulmonary embolism 10/31/2023 Acute pulmonary embolism 10/29/2023 Sick sinus syndrome 10/29/2023 History of Chiari malformation 10/29/2023 Essential hypertension 10/29/2023 Cardiac pacemaker 10/29/2023 Psychiatric disorder 10/29/2023 Family History Medical History Relation Name Comments Amyotrophic lateral sclerosis Father Bipolar Disorder Father Heart Attack Father Esophageal Cancer Maternal Grandfather Diabetes Maternal Grandmother Heart Failure Maternal Grandmother Diabetes Mother Glaucoma Paternal Grandmother Relation Name Status Comments Father Maternal Grandfather Maternal Grandmother Mother Paternal Grandmother Social History Tobacco Use Types Packs/Day Years Used Date Smoking Tobacco: Never Smokeless Tobacco: Never Tobacco Cessation:Counseling Given: No Alcohol Use Standard Drinks/Week Comments Never 0 (1 standard drink = 0.6 oz pur e alcohol) [facility] Utilities Answer Date Recorded In the past 12 months has e [employer] oil, or water [employer] threatened to shut off services in your home? No 10/29/2023 Humiliation, Afraid, Rape, and Kick questionnair e Answer Date Recorded Within the last year, have y ou been afraid of your partner or ex-partner? No 10/29/2023 Within the last year, have y ou been humiliated or emotionally abused in other ways by your partner or ex-partner? No Within the last year, have y ou been kicked, hit, slapped, or otherwise physically hurt by your partner or ex-partner? No 10/29/2023 Within the last year, have y ou been raped or forced to have any kind of sexual activity by your partner or ex-partner? No 10/29/2023 Social Connection and Isolat ion Panel [NHANES] Answer Date Recorded In a typical week, how many times do you talk on the phone with family, friends, or neighbors? More than three times a week 10/29/2023 How often do you get togethe r with friends or relatives? More than three times a week 10/29/2023 How often do you attend chur or latter day services? More than 4 times per year 10/29/2023 Do you belong to any clubs o r organizations such as cheondoism groups, unions, fraternal or athletic groups, or school groups? Yes 10/29/2023 How often do you attend meet ings of the clubs or organizations you belong to? More than 4 times per year 10/29/2023 Are you , , di vorced, , never , or living with a partner? 10/29/2023 AUDIT-C Answer Date Recorded Frequency of Alcohol Consumption Not on file 10/29/2023 Q2: How many drinks containi ng alcohol do you have on a typical day when you are drinking? Patient does not drink Q3: How often do you have si x or more drinks on one occasion? Never 10/29/2023 Overall Financial Resource Strain (CARDIA) Answe r Date Recorded How hard is it for you to pa y for the very basics like food, housing, medical care, and heating? Not hard at all 10/29/2023 PHQ-2 Answer Date Recorded Patient Health Questionnaire-2 Score 0 10/29/2023 [facility] - Occupational Stress Questionnaire Answer Date Recorded Do you feel stress - tense, restless, nervous, or anxious, or unable to sleep at night because your mind is troubled all the time - these days? Not at all 10/29/2023 Exercise Vital Sign Answer Date Recorde d On average, how many days pe r week do you engage in moderate to strenuous exercise (like a brisk walk)? 0 days 10/29/2023 On average, how many minutes do you engage in exercise at this level? 0 min 10/29/2023 Hunger Vital Sign Answer Date Recorded Within the past 12 months, y ou worried that your food would run out before you got the money to buy more. Never true 10/29/19 24 Within the past 12 months, t he food you bought just didn't last and you didn't have money to get more. Never true 10/29/2023 PRAPARE - Transportation Answer Date Re corded In the past 12 months, has l ack of transportation kept you from medical appointments or from getting medications? No 02/2024 In the past 12 months, has l ack of transportation kept you from meetings, work, or from getting things needed for daily living? No 10/29/2023 Housing Stability Vital Sign Answer Richie e Recorded In the last 12 months, was t here a time when you were not able to pay the mortgage or rent on time? Yes 10/29/2023 In the last 12 months, how many places have you lived? 1 10/29/2023 In the last 12 months, was t here a time when you did not have a steady place to sleep or slept in a retirement (including now)? No 10/29/2023 Food Insecurity Answer Date Recorded Within the past 12 months, y ou worried that your food would run out before you got the money to buy more. 1 10/29/2023 Within the past 12 months, t he food you bought just didn't last and you didn't have money to get more. 1 10/29/2023 Interpersonal Safety Domain Source: IP Abuse Scr eening Answer Date Recorded Read-Only, Retired: Physical Abuse Denies 10/29/2023 Read-Only, Retired: Verbal Abuse Denies 10/29/2023 Read-Only, Retired: Emotional abuse Denies 10/29/2023 Read-Only, Retired: Financial Abuse Denies 10/29/2023 Read-Only, Retired: Sexual abuse Denies 10/29/2023 Education Answer Date Recorded What is the highest level of school you have completed or the highest degree you have received? Some college, no degree 10/29/2023 Comments No Sex and Gender Information Value Date Recorded Sex Assigned at Not on file Legal Sex Female 3:23 PM EST Gender Identity Not on file Sexual Orientation Not on file Last Filed Vital Signs Vital Sign Reading Time Taken Comments Blood Pressure 121/88 10/31/2023 12:13 PM EDT Pulse 115 10/31/2023 12:13 PM EDT Temperature 36.4 C (97.5 F) 10/31/2023 12:13 PM EDT Respiratory Rate 18 10/31/2023 12:13 PM EDT Oxygen Saturation 93% 10/31/2023 12:13 PM EDT Inhaled Oxygen Concentration - - Weight 116 kg (255 lb 11.7 oz) 2023 6:00 A M EDT Height 167.6 cm (5' 6 ) 10/29/2023 10:50 AM EDT Body Mass Index 41.28 10/29/2023 10:50 AM EDT Plan of Treatment Health Maintenance Due Date Last Done Comments Depression Screen 1994 Varicella vaccine (1 of 2 - 13+ 2-dose series) 10/31/1995 HIV screen 1997 Hepatitis C screen 2000 DTaP/Tdap/Td vaccine (1 - Tdap) 2001 Hepatitis B vaccine (1 of 3 - 19+ 3-dose series) 2001 Pap smear 10/31/2003 Cervical cancer screen 2012 HPV (without or with Pap) 2012 Breast cancer screen 2022 Lipids 2022 COVID-19 Vaccine (2023-2 5 season) 2024 Annual Wellness Visit (Medicare Advantage) 06/22/2024 Flu vaccine (Season Ended) 01/20/202505/27, 04/10/2019 HPV vaccine Aged Out No longer eligi ble based on patient's age to complete this topic Hepatitis A vaccine Aged Out No longe r eligible based on patient's age to complete this topic Hib vaccine Aged Out No longer eligi ble based on patient's age to complete this topic Meningococcal (ACWY) vaccine Aged Out No longer eligible based on patient's age to complete this topic Meningococcal B vaccine Aged Out No l onger eligible based on patient's age to complete this topic Pneumococcal 0-49 years Vaccine Aged Out No longer eligible b ased on patient's age to complete this topic Polio vaccine Aged Out No longer elig ible based on patient's age to complete this topic Insurance [facility]NA [facility] AETNA MEDICARE MEDICAID [address] [place] [address] [facility] Advance Directives * Full Code (Latest Code Status on File) Date Activated Date Inactivated Comments 10/29/2023 10:29 AM 10/31/2023 5:25 PM Care Teams Restaurant Delivery Driver Relationship Specialty Start Date End Date Sharyn Bradford MD [address] [place] [id number] PCP - General Family Medicine 10/30/23
--- OUTSIDE RECORDS SUMMARY | 2024-12-04 21:19 | XMS_ITS | Encounter Summary ---
Author Organization [facility] Address [address] [place] [address] Care Team Providers Care Fuel Pilot Engineer Name Role Phone Sharyn Bradford MD Primary Care Provider [phone] Source Comments In the event this information is protected by the Federal Confidentiality of Alcohol and Drug AbusePatient Records regulations: The Federal rules restrict any use of the information to criminally investigate or prosecute any alcohol or drug abuse patient.[facility] Encounter Details Date Type Department Care Team (Late st Contact Info) Description 06/05/2020 Get Medical Advice General Surgery [facility] [address] [place] [address] Anshu Cheney MD [address] [place] [address] Test Result Question Social History Tobacco Use Types Packs/Day Years Used Date Smoking Tobacco: Never Smokeless Tobacco: Never Alcohol Use Standard Drinks/Week Comments No 0 (1 standard drink = 0.6 oz pur e alcohol) Overall Financial Resource Strain (CARDIA) Answe r Date Recorded How hard is it for you to pa y for the very basics like food, housing, medical care, and heating? Not hard at all 10/24/2019 PHQ-2 Answer Date Recorded PHQ2 Score 0 07/10/2019 Hunger Vital Sign Answer Date Recorded Within the past 12 months, y ou worried that your food would run out before you got the money to buy more. Never true 10/24/19 20 Within the past 12 months, t he food you bought just didn't last and you didn't have money to get more. Never true 10/24/2019 PRAPARE - Transportation Answer Date Re corded In the past 12 months, has l ack of transportation kept you from medical appointments or from getting medications? No 09/2019 In the past 12 months, has l ack of transportation kept you from meetings, work, or from getting things needed for daily living? No 10/24/2019 Area Deprivation Index Answer Date Magdy rded National Score (1-100), lower number is lower ri sk Not on file 05/26/2020 State Score (1-10), lower number is lower risk N ot on file 05/26/2020 Data from: https://www.neighborhoodatlas.medicine.[facility].edu/. Last address used for calculation Not on file 05/26/2020 Comments No Sex and Gender Information Value Date Recorded Sex Assigned at Female 10/18/2020 8:13 PM EDT Legal Sex Female 9:42 AM EST Gender Identity Female 10/18/2020 8:13 PM EDT Sexual Orientation Straight 10/18/2020 8: 13 PM EDT COVID-19 Exposure Response Date Recorded In the last month, have you been in contact with someone who was confirmed or suspected to have Coronavirus / COVID-19? No / Unsure 05/28/2020 10:48 AM EST documented as of this encounter Functional Status * Are you deaf or do you have serious difficulty hearing? Answer Date of Assessment Author No 05/29/2020 4:03 PM Mitchel Thurston RN * Are you blind or do you have serious difficulty seeing, even when wearing glasses? Answer Date of Assessment Author No 05/29/2020 4:03 PM Mitchel Thurston RN * Do you have serious difficulty walking or climbing stairs? Answer Date of Assessment Author No 05/29/2020 4:03 PM Mitchel Thurston RN * Do you have difficulty dressing or bathing? Answer Date of Assessment Author No 05/29/2020 4:03 PM Mitchel Thurston RN * Because of a physical, mental, or emotional condition, do you have difficulty doing errands alone such as visiting a doctor's office or shopping? Answer Date of Assessment Author No 05/29/2020 4:03 PM Mitchel Thurston RN documented as of this encounter Mental Status * Because of a physical, mental, or emotional condition, do you have serious difficulty concentrating, remembering, or making decisions? Answer Entry Date Author No 05/29/2020 4:03 PM Mitchel Thurston RN documented in this encounter Plan of Treatment Not on file documented as of this encounter Visit Diagnoses Not on filedocumented in this encounter Additional Health Concerns Infection Onset Date Last Indicated Resolved Time COVID-19 Rule-Out 09/28/2020 09/28/2020 09/29/2020 2:20 PM EDT COVID-19 Rule-Out 11/09/2020 11/09/2020 11/09/2020 9:02 PM EDT documented as of this encounter Care Teams Fuel Pilot Engineer Relationship Specialty Start Date End Date Sharyn Bradford MD [address] [place] [address] PCP - General 10/18/13 documented as of this encounter
--- OUTSIDE RECORDS SUMMARY | 2024-12-04 21:19 | XMS_ITS | Encounter Summary ---
Author Organization [facility] Address [address] [place] [address] Care Team Providers Care Crime Scene Analyst Name Role Phone Sharyn Bradford MD Primary Care Provider [phone] Source Comments In the event this information is protected by the Federal Confidentiality of Alcohol and Drug AbusePatient Records regulations: The Federal rules restrict any use of the information to criminally investigate or prosecute any alcohol or drug abuse patient.[facility] Encounter Details Date Type Department Care Team (Late st Contact Info) Description 12/15/2018 Patient Msg [facility] [address] [place], [place] [id number] Uyen Suazo, RD [address] [phone] RE: Appointment Cancellation Request Social History Tobacco [...] hearing? Answer Date of Assessment Author No 12/14/2018 1:52 PM EDT Jaime TeresaRn), RN * Are you blind or do you have serious difficulty seeing, even when wearing glasses? Answer Date of Assessment Author No 12/14/2018 1:52 PM EDT Jaime TeresaRn), RN * Do you have serious difficulty walking or climbing stairs? Answer Date of Assessment Author No 12/14/2018 1:52 PM EDT Jaime Teresa), RN * Do you have difficulty dressing or bathing? Answer Date of Assessment Author No 12/14/2018 1:52 PM EDT Jaime Teresa), RN * Because of a physical, mental, or emotional condition, do you have difficulty doing errands alone such as visiting a doctor's office or shopping? Answer Date of Assessment Author No 12/14/2018 1:52 PM EDT Jaime Teresa) RN documented as of this encounter Mental Status * Because of a physical, mental, or emotional condition, do you have serious difficulty concentrating, remembering, or making decisions? Answer Entry Date Author No 12/14/2018 1:52 PM EDT Jaime Teresa) RN documented in this encounter Plan of [...] documented as of this encounter Care Teams Crime Scene Analyst Relationship Specialty Start Date End Date Sharyn Bradford MD [address] [place] [address] PCP - General 10/18/13 documented as of this encounter
--- OUTSIDE RECORDS SUMMARY | 2024-12-04 21:19 | XMS_ITS | Encounter Summary ---
Author Organization [facility] Address [address] [place] [address] Care Team Providers Care Silver Steward Name Role Phone Sharyn Bradford MD Primary Care Provider [phone] Source Comments In the event this information is protected by the Federal Confidentiality of Alcohol and Drug AbusePatient Records regulations: The Federal rules restrict any use of the information to criminally investigate or prosecute any alcohol or drug abuse patient.[facility] Encounter Details Date Type Department Care Team (Late st Contact Info) Description 07/20/2018 Patient Msg Pre Anesthesia [address] [place] [address] Provider, Ccf pre op instructions Social History Tobacco Use Types Packs/Day Years [...] of Assessment Author No 08/02/2014 1:39 PM SID KenaiNissa harmon LPN * Are you blind or do you have serious difficulty seeing, even when wearing glasses? Answer Date of Assessment Author No 08/02/2014 1:39 PM Nissa Pollard LPN * Do you have serious difficulty walking or climbing stairs? Answer Date of Assessment Author No 08/02/2014 1:39 PM Nissa Pollard TECHNICAL WRITING LEAD/MGR * Do you have difficulty dressing or bathing? Answer Date of Assessment Author No 08/02/2014 1:39 PM Nissa Pollard TECHNICAL WRITING LEAD/MGR * Because of a physical, mental, or [...] Entry Date Author No 08/02/2014 1:39 PM SID KenaiNissa harmon LPN documented in this encounter Plan of [...] documented as of this encounter Care Teams Silver Steward Relationship Specialty Start Date End Date Sharyn Bradford MD [address] [place] [phone] PCP - General 10/18/13 documented as of this encounter
--- OUTSIDE RECORDS SUMMARY | 2024-12-04 21:19 | XMS_ITS | Encounter Summary ---
Author Organization [facility] Address [address] [place] [address] Care Team Providers Care Plaster Model And Mold Maker Name Role Phone Sharyn Bradford MD Primary Care Provider [phone] Source Comments In the event this information is protected by the Federal Confidentiality of Alcohol and Drug AbusePatient Records regulations: The Federal rules restrict any use of the information to criminally investigate or prosecute any alcohol or drug abuse patient.[facility] Encounter Details Date Type Department Care Team (Late st Contact Info) Description 11/05/2020 Patient Msg General Surgery [facility] [address] [place] [address] Provider, Ccf RE:schedule Social History Tobacco Use Types Packs/Day Years [...] on file 05/26/2020 Data from: https://www.neighborhoodatlas.medicine.[facility].edu/. Last address used for calculation Not on [...] have Coronavirus / COVID-19? No / Unsure 11/07/2020 3:53 PM EDT documented as of this encounter Functional Status * Are you deaf or do you have serious difficulty hearing? Answer Date of Assessment Author No 09/29/2020 2:37 PM EDT Mercy Whitaker, RN * Are you blind or do you have serious difficulty seeing, even when wearing glasses? Answer Date of Assessment Author No 09/29/2020 2:37 PM EDT Mercy Whitaker, RN * Do you have serious difficulty walking or climbing stairs? Answer Date of Assessment Author No 09/29/2020 2:37 PM EDT Mercy Whitaker, RN * Do you have difficulty dressing or bathing? Answer Date of Assessment Author No 09/29/2020 2:37 PM EDT Mercy Whitaker, RN * Because of a physical, mental, or emotional condition, do you have difficulty doing errands alone such as visiting a doctor's office or shopping? Answer Date of Assessment Author No 09/29/2020 2:37 PM EDT Mercy Whitaker RN documented as of this encounter Mental Status * Because of a physical, mental, or emotional condition, do you have serious difficulty concentrating, remembering, or making decisions? Answer Entry Date Author No 09/29/2020 2:37 PM EDT Mercy Whitaker RN documented in this encounter Plan of Treatment Not on file documented as of this encounter Visit Diagnoses Not on filedocumented in this encounter Additional Health Concerns Infection Onset Date Last Indicated Resolved Time COVID-19 Rule-Out 11/09/2020 11/09/2020 11/09/2020 9:02 PM EDT documented as of this encounter Care Teams Plaster Model And Mold Maker Relationship Specialty Start Date End Date Sharyn Bradford MD [address] [place] [phone] PCP - General 10/18/13 documented as of this encounter
--- OUTSIDE RECORDS SUMMARY | 2024-12-04 21:19 | XMS_ITS | Clinical Summary ---
Author Organization [facility] Address [address] [place] [address] Care Team Providers Care Brand Advocate Name Role Phone Unavailable Primary Care Provider Unavailabl e Social History Tobacco Use Types Packs/Day Years Used Date Smoking Tobacco: Never Assessed Comments Unknown Sex and Gender Information Value Date Recorded Sex Assigned at Not on file Legal Sex Female 7:23 PM EDT Gender Identity Not on file Sexual Orientation Not on file Last Filed Vital Signs Vital Sign Reading Time Taken Comments Blood Pressure 120/84 09/22/2022 12:00 PM EDT Pulse - - Temperature - - Respiratory Rate - - Oxygen Saturation - - Inhaled Oxygen Concentration - - Weight 117 kg (257 lb) 09/22/2022 12:00 PM EDT Height 166.4 cm (5' 5.5 ) 09/22/2022 12:00 PM ED T Body Mass Index 42.12 09/22/2022 12:00 PM EDT Plan of Treatment Not on file Insurance [employer] MED[employer]VANTAGE
--- OUTSIDE RECORDS SUMMARY | 2024-12-04 21:19 | XMS_ITS | Encounter Summary ---
Author Organization [facility] Address [address] [place] [address] Care Team Providers Care Senior Sql Dba Name Role Phone Sharyn Bradford MD Primary Care Provider Source Comments In the event this information is protected by the Federal Confidentiality of Alcohol and Drug AbusePatient Records regulations: The Federal rules restrict any use of the information to criminally investigate or prosecute any alcohol or drug abuse patient.[facility] Encounter Details Date Type Department Care Team (Late st Contact Info) Description 05/04/2018 Get Medical Advice [facility]ology [facility] [address] [phone] Dennis Gibson DO [facility] [address] [place] [address] RE: Upcoming Appointment Question Social History Tobacco Use Types Packs/Day [...] Nissa Pollard LPN * Do you have difficulty dressing or bathing? Answer Date of Assessment Author No 08/02/2014 1:39 PM Nissa Pollard LPN * Because of a physical, mental, [...] documented as of this encounter Care Teams Senior Sql Dba Relationship Specialty Start Date End Date Sharyn Bradford MD [address] [place] [address] PCP - General 4/29/14 documented as of this encounter
--- OUTSIDE RECORDS SUMMARY | 2024-12-04 21:19 | XMS_ITS | Encounter Summary ---
Author Organization [facility] Address [address] [place] [address] Care Team Providers Care Assistant Professor Of Life Sciences Name Role Phone Sharyn Bradford MD Primary Care Provider [phone] Source Comments In the event this information is protected by the Federal Confidentiality of Alcohol and Drug AbusePatient Records regulations: The Federal rules restrict any use of the information to criminally investigate or prosecute any alcohol or drug abuse patient.[facility] Encounter Details Date Type Department Care Team (Late st Contact Info) Description 12/22/2018 Patient Msg Medical Records [address] [place] [address] Provider, Ccf Prescribed Patient Education Video(s) Social [...] Jaime Teresa), RN * Do you have serious difficulty walking or climbing stairs? Answer Date of Assessment Author No 12/14/2018 1:52 PM EDT Jaime Teresa) RN * Do you have difficulty dressing or bathing? Answer Date of Assessment Author No 12/14/2018 1:52 PM EDT Jaime Teresa)BRANDIE * Because of a physical, mental, or emotional condition, do you have difficulty doing errands alone such as visiting a doctor's office or shopping? Answer Date of Assessment Author No 12/14/2018 1:52 PM EDT Jaime Teresa)BRANDIE documented as of this encounter Mental Status * Because of a physical, mental, or emotional condition, do you have serious difficulty concentrating, remembering, or making decisions? Answer Entry Date Author No 12/14/2018 1:52 PM EDT Jaime Teresa)BRANDIE documented in this encounter Plan of Treatment [...] documented as of this encounter Care Teams Assistant Professor Of Life Sciences Relationship Specialty Start Date End Date Sharyn Bradford MD [address] [place] [address] PCP - General 10/18/13 documented as of this encounter
--- OUTSIDE RECORDS SUMMARY | 2024-12-04 21:19 | XMS_ITS | Encounter Summary ---
Author Organization [facility] Address [address] [place] [address] Care Team Providers Care Fitness Technician Name Role Phone Sharyn Bradford MD Primary Care Provider [phone] Source Comments In the event this information is protected by the Federal Confidentiality of Alcohol and Drug AbusePatient Records regulations: The Federal rules restrict any use of the information to criminally investigate or prosecute any alcohol or drug abuse patient.[facility] Encounter Details Date Type Department Care Team (Late st Contact Info) Description 04/05/2018 Get Medical Advice [facility]astro[facility]ology [facility] [address] [phone] Dennis Gibson DO [facility] [address] [place] [address] RE: Test Result Question Social History Tobacco Use [...] 08/02/2014 1:39 PM Nissa Pollard LPN * Are you blind or do [...] Entry Date Author No 08/02/2014 1:39 PM Nisas Pollard LPN documented in this encounter Plan [...] documented as of this encounter Care Teams Fitness Technician Relationship Specialty Start Date End Date Sharyn Bradford MD [address] [place] [address] PCP - General 10/18/13 documented as of this encounter
--- OUTSIDE RECORDS SUMMARY | 2024-12-04 21:19 | XMS_ITS | Encounter Summary ---
Author Organization [facility] Address [address] [place] [address] Care Team Providers Care Quill Fixer Name Role Phone Sharyn Bradford MD Primary Care Provider [phone] Source Comments In the event this information is protected by the Federal Confidentiality of Alcohol and Drug AbusePatient Records regulations: The Federal rules restrict any use of the information to criminally investigate or prosecute any alcohol or drug abuse patient.[facility] Encounter Details Date Type Department Care Team (Late st Contact Info) Description 04/06/2018 Patient Msg Gastroenterology [address] [phone] Provider, Ccf Re: your my chart message re: labs Social History Tobacco Use Types Packs/Day Years [...] Author No 08/02/2014 1:39 PM Nissa Pollard WALL STEAMER * Do you have serious difficulty walking or climbing stairs? Answer Date of Assessment Author No 08/02/2014 1:39 PM Nissa Pollard WALL STEAMER * Do you have difficulty dressing or bathing? Answer Date of Assessment Author No 08/02/2014 1:39 PM Nissa Pollard, WALL STEAMER * Because of a physical, mental, or [...] documented as of this encounter Care Teams Quill Fixer Relationship Specialty Start Date End Date Sharyn Bradford MD [address] [place] [address] PCP - General 10/18/13 documented as of this encounter
--- OUTSIDE RECORDS SUMMARY | 2024-12-04 21:19 | XMS_ITS | Encounter Summary ---
Author Organization [facility] Address [address] [place] [address] Care Team Providers Care Riding Double Name Role Phone Sharyn Bradford MD Primary Care Provider [phone] Source Comments In the event this information is protected by the Federal Confidentiality of Alcohol and Drug AbusePatient Records regulations: The Federal rules restrict any use of the information to criminally investigate or prosecute any alcohol or drug abuse patient.[facility] Encounter Details Date Type Department Care Team (Late st Contact Info) Description 03/30/2019 Patient Msg Neurology [address] [place] [phone] Korin Easley MD [address] [place] [address] RE: Appointment Cancellation Request Social History [...] hearing? Answer Date of Assessment Author No 03/29/2019 3:03 PM EDT Anh Zhang RN * Are you blind or do you have serious difficulty seeing, even when wearing glasses? Answer Date of Assessment Author No 03/29/2019 3:03 PM EDT Anh Zhang RN * Do you have serious difficulty walking or climbing stairs? Answer Date of Assessment Author No 03/29/2019 3:03 PM EDT Anh Zhang RN * Do you have difficulty dressing or bathing? Answer Date of Assessment Author No 03/29/2019 3:03 PM EDT Anh Zhang RN * Because of a physical, mental, or emotional condition, do you have difficulty doing errands alone such as visiting a doctor's office or shopping? Answer Date of Assessment Author No 03/29/2019 3:03 PM EDT Anh Zhang RN documented as of this encounter Mental Status * Because of a physical, mental, or emotional condition, do you have serious difficulty concentrating, remembering, or making decisions? Answer Entry Date Author No 03/29/2019 3:03 PM EDT Anh Zhang RN documented in this encounter Plan of [...] documented as of this encounter Care Teams Riding Double Relationship Specialty Start Date End Date Sharyn Bradford MD [address] [place] [address] PCP - General 10/18/13 documented as of this encounter
--- OUTSIDE RECORDS SUMMARY | 2024-12-04 21:19 | XMS_ITS | Encounter Summary ---
Author Organization [facility] Address [address] [place] [address] Care Team Providers Care Assembling Inspector Name Role Phone Sharyn Bradford MD Primary Care Provider [phone] Source Comments In the event this information is protected by the Federal Confidentiality of Alcohol and Drug AbusePatient Records regulations: The Federal rules restrict any use of the information to criminally investigate or prosecute any alcohol or drug abuse patient.[facility] Encounter Details Date Type Department Care Team (Late st Contact Info) Description 11/18/2018 [place] [address] Betty Last, RN Instructions for procedure Social History Tobacco Use Types Packs/Day Years [...] hearing? Answer Date of Assessment Author No 11/05/2018 2:26 PM EDFiordaliza Jeong RN * Are you blind or do you have serious difficulty seeing, even when wearing glasses? Answer Date of Assessment Author No 11/05/2018 2:26 PM EDT Fiordaliza Huitron RN * Do you have serious difficulty walking or climbing stairs? Answer Date of Assessment Author No 11/05/2018 2:26 PM [place]EVET Fiordaliza Huitron RN * Do you have difficulty dressing or bathing? Answer Date of Assessment Author No 11/05/2018 2:26 PM EDT Fiordaliza Huitron RN * Because of a physical, mental, or emotional condition, do you have difficulty doing errands alone such as visiting a doctor's office or shopping? Answer Date of Assessment Author No 11/05/2018 2:26 PM EDT Fiordaliza Huitron RN documented as of this encounter Mental Status * Because of a physical, mental, or emotional condition, do you have serious difficulty concentrating, remembering, or making decisions? Answer Entry Date Author No 11/05/2018 2:26 PM Fiordaliza Gresham RN documented in this encounter [...] documented as of this encounter Care Teams Assembling Inspector Relationship Specialty Start Date End Date Sharyn Bradford MD [address] [place] [phone] PCP - General 10/18/13 documented as of this encounter
--- OUTSIDE RECORDS SUMMARY | 2024-12-04 21:19 | XMS_ITS | Encounter Summary ---
Author Organization [facility] Address [address] [place] [address] Care Team Providers Care Plant Tech Name Role Phone Sharyn Bradford MD Primary Care Provider [phone] Source Comments In the event this information is protected by the Federal Confidentiality of Alcohol and Drug AbusePatient Records regulations: The Federal rules restrict any use of the information to criminally investigate or prosecute any alcohol or drug abuse patient.[facility] Encounter Details Date Type Department Care Team (Late st Contact Info) Description 01/26/2019 Patient Msg Pre Anesthesia [address] [facility] [address] [place], [place] [phone] Provider, Ccf Please read and call back Social History Tobacco Use Types Packs/Day Years [...] hearing? Answer Date of Assessment Author No 12/27/2018 6:21 PM EDT Alex Martinez APRN.WALLPAPERER HELPER * Are you blind or do you have serious difficulty seeing, even when wearing glasses? Answer Date of Assessment Author No 12/27/2018 6:21 PM EDT Alex Martinez APRN.WALLPAPERER HELPER * Do you have serious difficulty walking or climbing stairs? Answer Date of Assessment Author No 12/27/2018 6:21 PM EDT Alex Martinez APRN.WALLPAPERER HELPER * Do you have difficulty dressing or bathing? Answer Date of Assessment Author No 12/27/2018 6:21 PM EDT Alex Martinez APRN.WALLPAPERER HELPER * Because of a physical, mental, or emotional condition, do you have difficulty doing errands alone such as visiting a doctor's office or shopping? Answer Date of Assessment Author No 12/27/2018 6:21 PM EDT Alex Martinez APRN.WALLPAPERER HELPER documented as of this encounter Mental Status * Because of a physical, mental, or emotional condition, do you have serious difficulty concentrating, remembering, or making decisions? Answer Entry Date Author No 12/27/2018 6:21 PM EDT Alex Martinez APRN.WALLPAPERER HELPER documented in this encounter Plan of Treatment [...] documented as of this encounter Care Teams Plant Tech Relationship Specialty Start Date End Date Sharyn Bradford MD [address] [place] [address] PCP - General 10/18/13 documented as of this encounter
--- OUTSIDE RECORDS SUMMARY | 2024-12-04 21:19 | XMS_ITS | Encounter Summary ---
Author Organization [facility] Address [address] [place] [address] Care Team Providers Care Seismograph Observer Name Role Phone Sharyn Bradford MD Primary Care Provider [phone] Source Comments In the event this information is protected by the Federal Confidentiality of Alcohol and Drug AbusePatient Records regulations: The Federal rules restrict any use of the information to criminally investigate or prosecute any alcohol or drug abuse patient.[facility] Encounter Details Date Type Department Care Team (Late st Contact Info) Description 11/17/2018 Patient Msg General Surgery [facility] [address] [phone] Roxie Sanchez MA HEALTHCARE ANALYST/DIETITIO N APPT Social History Tobacco Use Types Packs/Day Years [...] 2:26 PM EDT Fiordaliza Huitron RN * Are you blind or do [...] Entry Date Author No 11/05/2018 2:26 PM EDT Fiordaliza Huitron RN documented in this encounter Plan of [...] documented as of this encounter Care Teams Seismograph Observer Relationship Specialty Start Date End Date Sharyn Bradford MD [address] [place] [phone] PCP - General 10/18/13 documented as of this encounter
--- OUTSIDE RECORDS SUMMARY | 2024-12-04 21:19 | XMS_ITS | Encounter Summary ---
Author Organization [facility] Address [address] [place] [address] Care Team Providers Care Director Of Surgery Name Role Phone Sharyn Bradford MD Primary Care Provider [phone] Source Comments In the event this information is protected by the Federal Confidentiality of Alcohol and Drug AbusePatient Records regulations: The Federal rules restrict any use of the information to criminally investigate or prosecute any alcohol or drug abuse patient.[facility] Encounter Details Date Type Department Care Team (Late st Contact Info) Description 04/12/2019 Get Medical Advice General Surgery [facility] [address] [place] [address] Anshu Cheney MD [address] [place] [address] Non-Urgent Medical Question Social History Tobacco Use [...] Fiordaliza Gresham RN * Do you have serious difficulty [...] documented as of this encounter Care Teams Director Of Surgery Relationship Specialty Start Date End Date Sharyn Bradford MD [address] [place] [address] PCP - General 10/18/13 documented as of this encounter
--- NOTE | 2024-12-04 21:20 | ECG_ITS ---
[facility] Test Date: 2024-12-04 Pat Name: LISETH ANDERSON Department: Room: - Gender: Female Burn Out Scarfing Operator: : 1980 Requested By: [id number] Order Number: [id number] Reading MD: JULI HAIR M.D. Measurements Intervals [place] Rate: 81 P: 45 CO: 188 QRS: -10 QRSD: 92 T: 34 QT: 370 QTc: 407 Interpretive Statements 1100 Sinus rhythm 1470 with occasional supraventricular premature complexes 8102 Low QRS voltage in chest leads 9140 abnormal rhythm ECG Compared to ECG 03/21/2024 10:15:51 No significant changes Prior ECG also showed sinus rhythm Electronically Signed On 12-05-2024 6:53:31 EDT by JULI HAIR M.D.
--- OUTSIDE RECORDS SUMMARY | 2024-12-04 21:20 | XMS_ITS | Encounter Summary ---
Author Organization [facility] Address [address] [place] [id number] Care Team Providers Care Systems Mgr Name Role Phone Sharyn Bradford MD Primary Care Provider [phone] Source Comments In the event this information is protected by the Federal Confidentiality of Alcohol and Drug AbusePatient Records regulations: The Federal rules restrict any use of the information to criminally investigate or prosecute any alcohol or drug abuse patient.[facility] Encounter Details Date Type Department Care Team (Late st Contact Info) Description 11/19/2022 Patient Msg General Surgery [facility] [address] [place] [address] Anshu Cheney MD [address] [place] [address] Appointment Request Social History Tobacco Use Types Packs/Day [...] N ot on file 05/26/2020 Data from: https://www.neighborhoodatlas.medicine.[facility].edu/. Last address used for calculation Not on [...] hearing? Answer Date of Assessment Author No 11/12/2020 6:14 PM EDT Wisam Carvajal RN * Are you blind or do you have serious difficulty seeing, even when wearing glasses? Answer Date of Assessment Author No 11/12/2020 6:14 PM EDT Wisam Carvajal RN * Do you have serious difficulty walking or climbing stairs? Answer Date of Assessment Author No 11/12/2020 6:14 PM EDT Wisam Carvajal RN * Do you have difficulty dressing or bathing? Answer Date of Assessment Author No 11/12/2020 6:14 PM EDT Wisam Cravajal RN * Because of a physical, mental, or emotional condition, do you have difficulty doing errands alone such as visiting a doctor's office or shopping? Answer Date of Assessment Author No 11/12/2020 6:14 PM EDT Wisam Carvajal RN documented as of this encounter Mental Status * Because of a physical, mental, or emotional condition, do you have serious difficulty concentrating, remembering, or making decisions? Answer Entry Date Author No 11/12/2020 6:14 PM EDT Wisam Carvajal RN documented in this encounter Plan of Treatment Not on file documented as of this encounter Visit Diagnoses Not on filedocumented in this encounter Care Teams Systems Mgr Relationship Specialty Start Date End Date Sharyn Bradford MD [address] [place] [id number] PCP - General 10/18/13 documented as of this encounter
--- OUTSIDE RECORDS SUMMARY | 2024-12-04 21:20 | XMS_ITS | Encounter Summary ---
Author Organization [facility] Address [address] [place] [id number] Care Team Providers Care Crotch Piece Baster Name Role Phone Sharyn Bradford MD Primary Care Provider [phone] Source Comments In the event this information is protected by the Federal Confidentiality of Alcohol and Drug AbusePatient Records regulations: The Federal rules restrict any use of the information to criminally investigate or prosecute any alcohol or drug abuse patient.[facility] Encounter Details Date Type Department Care Team (Late st Contact Info) Description 08/27/2019 Patient Msg Neurosurgery [id number] [place] [id number] [place] [address] [place] [address] RE: Appointment Cancellation Request Social History Tobacco [...] care, and heating? Not hard at all 08/10/2019 PHQ-2 Answer Date Recorded PHQ2 Score 0 07/10/2019 Hunger Vital Sign Answer Date Recorded Within the past 12 months, y ou worried that your food would run out before you got the money to buy more. Never true 08/10/19 20 Within the past 12 months, t he food you bought just didn't last and you didn't have money to get more. Never true 08/10/2019 PRAPARE - Transportation Answer Date Re corded In the past 12 months, has l ack of transportation kept you from medical appointments or from getting medications? No 07/23 In the past 12 months, has l ack of transportation kept you from meetings, work, or from getting things needed for daily living? No 08/10/2019 Comments No Sex and Gender Information Value Date Recorded Sex Assigned at Female 10/18/2020 8:13 PM EDT Legal Sex Female 9:42 AM EST Gender Identity Female 10/18/2020 8:13 PM EDT Sexual Orientation Straight 10/18/2020 8: 13 PM EDT documented as of this encounter Functional Status * Are you deaf or do you have serious difficulty hearing? Answer Date of Assessment Author No 07/12/2019 11:45 AM Carlos Ken RN * Are you blind or do you have serious difficulty seeing, even when wearing glasses? Answer Date of Assessment Author No 07/12/2019 11:45 AM Carlos Ken RN * Do you have serious difficulty walking or climbing stairs? Answer Date of Assessment Author No 07/12/2019 11:45 AM Carlos Ken RN * Do you have difficulty dressing or bathing? Answer Date of Assessment Author No 07/12/2019 11:45 AM Carlos Ken RN * Because of a physical, mental, or emotional condition, do you have difficulty doing errands alone such as visiting a doctor's office or shopping? Answer Date of Assessment Author No 07/12/2019 11:45 AM Carlos Ken RN documented as of this encounter Mental Status * Because of a physical, mental, or emotional condition, do you have serious difficulty concentrating, remembering, or making decisions? Answer Entry Date Author No 07/12/2019 11:45 AM Carlos Ken RN documented in this encounter Plan of [...] documented as of this encounter Care Teams Crotch Piece Baster Relationship Specialty Start Date End Date Sharyn Bradford MD [address] [place] [id number] PCP - General 10/18/13 documented as of this encounter
--- OUTSIDE RECORDS SUMMARY | 2024-12-04 21:20 | XMS_ITS | Patient Health Record ---
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 Test Ordered: [id number] Anticardiolipin Ab, IgG/M, Qn Anticardiolipin Ab,IgG,Qn <9 GPL U/mL CB Reference Range: 0-14 Negative: <15 Indeterminate: 15 - 20 Low-Med Positive: >20 - 80 High Positive: >80 Anticardiolipin Ab,IgM,Qn 15 [H ] MPL U/mL CB Reference Range: 0-12 Negative: <13 Indeterminate: 13 - 20 Low-Med Positive: >20 - 80 High Positive: >80 Performed at: CB - [facility] [address] [id number] Union Laborer: Prabhakar Warren PhD, Phone: [phone] Performing Lab: see note LC - [facility] LB VITAMIN D 25 [place] (Not yet rev iewed by provider) Interpretation: Performing Lab: Notes/Report: [facility] , Vitamin D 32.3 <20 ng/mL Vit D deficient 20-<30 ng/mL Vit D insufficient 30-100 ng/mL Vit D sufficient >100 ng/mL Potential Toxicity Performing Lab: see note ML - [facility] LB Vitamin B12 (Not yet reviewe d by provider) Interpretation: Performing Lab: Notes/Report: [facility] , Vitamin B12 283.0 193.0-986.0 pg/mL Performing Lab: see note ML - [facility] LB CBC AUTO DIFF (Not yet revie wed by provider) Interpretation: Performing Lab: Notes/Report: [facility] , White Blood Count 5.1 4.0-11.0 10 3/uL Red Blood Count 4.27 4.20-5.40 10 6/uL Hemoglobin 14.4 12.0-16.0 g/dL Hematocrit 41.9 36.0-48.0 % Mean Corpuscular Volume 98.1 81.0-99.0 fL Mean Corpuscular Hemoglobin 33.7 26.7-34.0 pg Mean Corpuscular HGB Conc 34.4 29.9-35.2 g/dL Red Cell Distribution Width 12.7 11.0-15.0 % Platelet Count 181 150-450 10 3/uL Mean Platelet Volume 9.0 9.5-13.5 fL Neutrophils Percent Auto 55.2 43.0-75.0 % Lymphocytes Percent Auto 33.8 20.5-60.0 % Monocytes Percent Auto 6.1 1.7-12.0 % Eosinophils Percent Auto 3.9 0.9-7.0 % Basophils Percent Auto 0.8 0.2-2.0 % Immature Granulocytes Pct Auto 0.2 0.0-0.5 % Neutrophils Absolute Auto 2.8 1.4-6.5 10 3/uL Lymphocytes Absolute Auto 1.7 1.2-3.8 10 3/uL Monocytes Absolute Auto 0.3 0.3-0.8 10 3/uL Eosinophils Absolute Auto 0.2 0.0-0.7 10 3/uL Basophils Absolute Auto 0.0 0.0-0.1 10 3/uL Immature Granulocytes Abs Auto 0.01 0.00-0.03 10 3/uL Performing Lab: see note ML - [facility] LB FERRITIN (Not yet reviewed b y provider) Interpretation: Performing Lab: Notes/Report: [facility] , Ferritin 78.0 8.0-252.0 ng/mL Performing Lab: see note ML - [facility] LB VITAMIN D 25 [place] (Not yet rev iewed by provider) Interpretation: Performing Lab: Notes/Report: [facility] , Vitamin D 26.9 <20 ng/mL Vit D deficient 20-<30 ng/mL Vit D insufficient 30-100 ng/mL Vit D sufficient >100 ng/mL Potential Toxicity Performing Lab: see note - [facility] LB Vitamin B12 (Not yet reviewe d by provider) Interpretation: Performing Lab: Notes/Report: [facility] , Vitamin B12 951 055-9083 pg/mL Performed at: - [facility] [address] [id number] Union Laborer: Prabhakar Warren PhD, Phone: [phone] Performing Lab: see note - [facility] LB CBC AUTO DIFF (Not yet revie wed by provider) Interpretation: Performing Lab: Notes/Report: [facility] , White Blood Count 4.5 4.0-11.0 10 3/uL Red Blood Count 4.05 4.20-5.40 10 6/uL Hemoglobin 14.1 12.0-16.0 g/dL Hematocrit 41.2 36.0-48.0 % Mean Corpuscular Volume 101.7 81.0-99.0 fL Mean Corpuscular Hemoglobin 34.8 26.7-34.0 pg Mean Corpuscular HGB Conc 34.2 29.9-35.2 g/dL Red Cell Distribution Width 12.4 11.0-15.0 % Platelet Count 163 150-450 10 3/uL Mean Platelet Volume 9.6 9.5-13.5 fL Neutrophils Percent Auto 59.9 43.0-75.0 % Lymphocytes Percent Auto 30.1 20.5-60.0 % Monocytes Percent Auto 7.1 1.7-12.0 % Eosinophils Percent Auto 2.0 0.9-7.0 % Basophils Percent Auto 0.7 0.2-2.0 % Immature Granulocytes Pct Auto 0.2 0.0-0.5 % Neutrophils Absolute Auto 2.7 1.4-6.5 10 3/uL Lymphocytes Absolute Auto 1.4 1.2-3.8 10 3/uL Monocytes Absolute Auto 0.3 0.3-0.8 10 3/uL Eosinophils Absolute Auto 0.1 0.0-0.7 10 3/uL Basophils Absolute Auto 0.0 0.0-0.1 10 3/uL Immature Granulocytes Abs Auto 0.01 0.00-0.03 10 3/uL Performing Lab: see note ML - [facility] LB FERRITIN (Not yet reviewed b y provider) Interpretation: Performing Lab: Notes/Report: [facility] , Ferritin 76.0 8.0-252.0 ng/mL Performing Lab: see note - [facility] LB VITAMIN D 25 [place] (Not yet rev iewed by provider) Interpretation: Performing Lab: Notes/Report: [facility] , Vitamin D 31.2 <20 ng/mL Vit D deficient 20-<30 ng/mL Vit D insufficient 30-100 ng/mL Vit D sufficient >100 ng/mL Potential Toxicity Performing Lab: see note ML - [facility] LB Vitamin B12 (Not yet reviewe d by provider) Interpretation: Performing Lab: Notes/Report: [facility] , Vitamin B12 043 630-0588 pg/mL Performed at: [facility] [address] [id number] Union Laborer: Prabhakar Warren PhD, Phone: [phone] Performing Lab: see note - [facility] LB VITAMIN D 25 [place] (Not yet rev iewed by provider) Interpretation: Performing Lab: Notes/Report: [facility] , Vitamin D 39.3 <20 ng/mL Vit D deficient 20-<30 ng/mL Vit D insufficient 30-100 ng/mL Vit D sufficient >100 ng/mL Potential Toxicity Performing Lab: see note - [facility] LB PROF CHEM 8 (BAS METB) (Not yet reviewed by provider) Interpretation: Performing Lab: Notes/Report: [facility] , Sodium 137 136-145 mmol/L Potassium 3.3 3.5-5.1 mmol/L Chloride 104 98-107 mmol/L Carbon Dioxide 28.6 21.0-32.0 mmol/L Anion Gap 7.7 Glucose 132 74-106 mg/dL Blood Urea Nitrogen 8.0 7.0-18.0 mg/dL Creatinine 1.06 0.55-1.02 mg/dL Estimated GFR ( Mariela >60 >=60 mL/min/1.73m 2 Estimated GFR (Non- Terri 57 >=60 mL/min/1.73m 2 BUN Creatinine Ratio 7.5 Calcium 8.8 8.5-10.1 mg/dL Performing Lab: see note ML - [facility] LB IRON AND TIBC (Not yet revie wed by provider) Interpretation: Performing Lab: Notes/Report: [facility] , Iron 59.0 50.0-170.0 ug/dL Total Iron Binding Capacity 306.0 250.0-450.0 u g/dL Percent Iron Saturation 19.3 Performing Lab: see note ML - [facility] LB FERRITIN (Not yet reviewed b y provider) Interpretation: Performing Lab: Notes/Report: [facility] , Ferritin 136.0 8.0-252.0 ng/mL Performing Lab: see note ML - [facility] LB CBC AUTO DIFF (Not yet revie wed by provider) Interpretation: Performing Lab: Notes/Report: [facility] , White Blood Count 2.8 4.0-11.0 10 3/uL Red Blood Count 3.99 4.20-5.40 10 6/uL Hemoglobin 13.5 12.0-16.0 g/dL Hematocrit 39.6 36.0-48.0 % Mean Corpuscular Volume 99.2 81.0-99.0 fL Mean Corpuscular Hemoglobin 33.8 26.7-34.0 pg Mean Corpuscular HGB Conc 34.1 29.9-35.2 g/dL Red Cell Distribution Width 12.2 11.0-15.0 % Platelet Count 113 150-450 10 3/uL Mean Platelet Volume 9.7 9.5-13.5 fL Neutrophils Percent Auto 45.4 43.0-75.0 % Lymphocytes Percent Auto 34.5 20.5-60.0 % Monocytes Percent Auto 18.7 1.7-12.0 % Eosinophils Percent Auto 0.7 0.9-7.0 % Basophils Percent Auto 0.7 0.2-2.0 % Immature Granulocytes Pct Auto 0.0 0.0-0.5 % Neutrophils Absolute Auto 1.3 1.4-6.5 10 3/uL Lymphocytes Absolute Auto 1.0 1.2-3.8 10 3/uL Monocytes Absolute Auto 0.5 0.3-0.8 10 3/uL Eosinophils Absolute Auto 0.0 0.0-0.7 10 3/uL Basophils Absolute Auto 0.0 0.0-0.1 10 3/uL Immature Granulocytes Abs Auto 0.00 0.00-0.03 10 3/uL Performing Lab: see note ML - [facility] LB PROF CHEM 8 (BAS METB) (Not yet reviewed by provider) Interpretation: Performing Lab: Notes/Report: [facility] , Sodium 143 136-145 mmol/L Potassium 4.3 3.5-5.1 mmol/L Chloride 105 98-107 mmol/L Carbon Dioxide 28.3 21.0-32.0 mmol/L Anion Gap 14.0 Glucose 96 74-106 mg/dL Blood Urea Nitrogen 11.0 7.0-18.0 mg/dL Creatinine 0.94 0.55-1.02 mg/dL Estimated GFR ( Mariela >60 >=60 mL/min/1.73m 2 Estimated GFR (Non- Terri >60 >=60 mL/min/1.73m 2 BUN Creatinine Ratio 11.7 Calcium 9.2 8.5-10.1 mg/dL Performing Lab: see note ML - [facility] LB IRON AND TIBC (Not yet revie wed by provider) Interpretation: Performing Lab: Notes/Report: [facility] , Iron 116.0 50.0-170.0 ug/dL Total Iron Binding Capacity 302.0 250.0-450.0 u g/dL Percent Iron Saturation 38.4 Performing Lab: see note ML - [facility] LB PROF CHEM 8 (BAS METB) (Not yet reviewed by provider) Interpretation: Performing Lab: Notes/Report: [facility] , Sodium 141 136-145 mmol/L Potassium 3.9 3.5-5.1 mmol/L Chloride 105 98-107 mmol/L Carbon Dioxide 29.9 21.0-32.0 mmol/L Anion Gap 10.0 Glucose 101 74-106 mg/dL Blood Urea Nitrogen 7.0 7.0-18.0 mg/dL Creatinine 1.16 0.55-1.02 mg/dL Estimated GFR ( Mariela >60 >=60 mL/min/1.73m 2 Estimated GFR (Non- Terri 51 >=60 mL/min/1.73m 2 BUN Creatinine Ratio 6.0 Calcium 9.1 8.5-10.1 mg/dL Performing Lab: see note ML - [facility] LB IRON AND TIBC (Not yet revie wed by provider) Interpretation: Performing Lab: Notes/Report: [facility] , Iron 112.0 50.0-170.0 ug/dL Total Iron Binding Capacity 286.0 250.0-450.0 u g/dL Percent Iron Saturation 39.2 Performing Lab: see note ML - [facility] LB IRON AND TIBC (Not yet revie wed by provider) Interpretation: Performing Lab: Notes/Report: [facility] , Iron 108.0 50.0-170.0 ug/dL Total Iron Binding Capacity 277.0 250.0-450.0 u g/dL Percent Iron Saturation 39.0 Performing Lab: see note ML - [facility] LB FERRITIN (Not yet reviewed b y provider) Interpretation: Performing Lab: Notes/Report: [facility] , Ferritin 328.0 8.0-252.0 ng/mL Performing Lab: see note ML - [facility] LB CBC AUTO DIFF (Not yet revie wed by provider) Interpretation: Performing Lab: Notes/Report: [facility] , White Blood Count 4.0 4.0-11.0 10 3/uL Red Blood Count 3.98 4.20-5.40 10 6/uL Hemoglobin 12.4 12.0-16.0 g/dL Hematocrit 38.0 36.0-48.0 % Mean Corpuscular Volume 95.5 81.0-99.0 fL Mean Corpuscular Hemoglobin 31.2 26.7-34.0 pg Mean Corpuscular HGB Conc 32.6 29.9-35.2 g/dL Red Cell Distribution Width 15.0 11.0-15.0 % Platelet Count 183 150-450 10 3/uL Mean Platelet Volume 9.9 9.5-13.5 fL Neutrophils Percent Auto 63.1 43.0-75.0 % Lymphocytes Percent Auto 26.5 20.5-60.0 % Monocytes Percent Auto 7.2 1.7-12.0 % Eosinophils Percent Auto 2.2 0.9-7.0 % Basophils Percent Auto 1.0 0.2-2.0 % Immature Granulocytes Pct Auto 0.0 0.0-0.5 % Neutrophils Absolute Auto 2.6 1.4-6.5 10 3/uL Lymphocytes Absolute Auto 1.1 1.2-3.8 10 3/uL Monocytes Absolute Auto 0.3 0.3-0.8 10 3/uL Eosinophils Absolute Auto 0.1 0.0-0.7 10 3/uL Basophils Absolute Auto 0.0 0.0-0.1 10 3/uL Immature Granulocytes Abs Auto 0.00 0.00-0.03 10 3/uL Performing Lab: see note ML - [facility] LB CBC AUTO DIFF (Not yet revie wed by provider) Interpretation: Performing Lab: Notes/Report: [facility] , White Blood Count 4.7 4.0-11.0 10 3/uL Red Blood Count 3.75 4.20-5.40 10 6/uL Hemoglobin 11.4 12.0-16.0 g/dL Hematocrit 35.0 36.0-48.0 % Mean Corpuscular Volume 93.3 81.0-99.0 fL Mean Corpuscular Hemoglobin 30.4 26.7-34.0 pg Mean Corpuscular HGB Conc 32.6 29.9-35.2 g/dL Red Cell Distribution Width 12.2 11.0-15.0 % Platelet Count 217 150-450 10 3/uL Mean Platelet Volume 10.1 9.5-13.5 fL Neutrophils Percent Auto 58.4 43.0-75.0 % Lymphocytes Percent Auto 30.2 20.5-60.0 % Monocytes Percent Auto 8.0 1.7-12.0 % Eosinophils Percent Auto 2.1 0.9-7.0 % Basophils Percent Auto 1.1 0.2-2.0 % Immature Granulocytes Pct Auto 0.2 0.0-0.5 % Neutrophils Absolute Auto 2.8 1.4-6.5 10 3/uL Lymphocytes Absolute Auto 1.4 1.2-3.8 10 3/uL Monocytes Absolute Auto 0.4 0.3-0.8 10 3/uL Eosinophils Absolute Auto 0.1 0.0-0.7 10 3/uL Basophils Absolute Auto 0.1 0.0-0.1 10 3/uL Immature Granulocytes Abs Auto 0.01 0.00-0.03 10 3/uL Performing Lab: see note ML - [facility] LB Beta-2 Glycoprotein I Ab,G,A ,M (Not yet reviewed by provider) Interpretation: Performing Lab: Notes/Report: [facility] , Beta-2 Glycoprotein I Ab, IgG <9 0-20 Result Units: GPI IgG units The reference interval reflects a 3SD or 99th percentile interval, which is thought to represent a potentially clinically significant result in accordance with the International Consensus Statement on the classification criteria for definitive antiphospholipid syndrome (APS). J Thromb Haem 2006;4:295-306. Beta-2 Glycoprotein I Ab, IgA <9 0-25 Result Units: GPI IgA units The reference interval reflects a 3SD or 99th percentile interval, which is thought to represent a potentially clinically significant result in accordance with the International Consensus Statement on the classification criteria for definitive antiphospholipid syndrome (APS). J Thromb Haem 2006;4:295-306. Beta-2 Glycoprotein I Ab, IgM <9 0-32 Result Units: GPI IgM units The reference interval reflects a 3SD or 99th percentile interval, which is thought to represent a potentially clinically significant result in accordance with the International Consensus Statement on the classification criteria for definitive antiphospholipid syndrome (APS). J Thromb Haem 2006;4:295-306. Performed at: [facility] [id number] Union Laborer: Shayy Solano MD, Phone: [phone] Performing Lab: see note - [facility] LB Factor II, DNA Analysis (Not yet reviewed by provider) Interpretation: Performing Lab: Notes/Report: [facility] , Factor II, DNA Analysis Comment . Result: c.*97G>A - Not Detected This result is not associated with an increased risk for venous thromboembolism. See Additional Clinical Information and Comments. Additional Clinical Information: Venous thromboembolism is a multifactorial disease influenced by genetic, environmental, and circumstantial risk factors. The c.*97G>A variant in the F2 gene is a genetic risk factor for venous thromboembolism. Heterozygous carriers have a 2- to 4-fold increased risk for venous thromboembolism. Homozygotes for the c.*97G>A variant are rare. The annual risk of VTE in homozygotes has been reported to be 1.1%/year. Individuals who carry both a c.*97G>A variant in the F2 gene and a c.1601G>A (p. [id number]) variant in the F5 gene (commonly referred to as Factor V Leiden) have an approximately 20- fold increased risk for venous thromboembolism. Risks are likely to be even higher in more complex genotype combinations involving the F2 c.*97G>A variant and Factor V Leiden (PMID: 83633812). Additional risk factors include but are not limited to: deficiency of protein C, protein S, or antithrombin III, age, male sex, personal or family history of deep vein thromboembolism, smoking, surgery, prolonged immobilization, malignant neoplasm, tamoxifen treatment, raloxifene treatment, oral contraceptive use, hormone replacement therapy, and . Management of thrombotic risk and thrombotic events should follow established guidelines and fit the clinical circumstance. This result cannot predict the occurrence or recurrence of a thrombotic event. Comments: Genetic counseling is recommended to discuss the potential clinical implications of positive results, as well as recommendations for testing family members. Genetic Coordinators are available for health care providers to discuss results at [phone] Test Details: Variant analyzed: c.*97G>A, previously referred to as [id number] Methods/Limitations: DNA analysis of the F2 gene (NM_000506.5) was performed by PCR amplification followed by restriction enzyme analysis. The diagnostic sensitivity is >99%. Results must be combined with clinical information for the most accurate interpretation. Molecular-based testing is highly accurate, but as in any laboratory test, diagnostic errors may occur. False positive or false negative results may occur for reasons that include genetic variants, blood transfusions, bone marrow transplantation, somatic or tissue-specific mosaicism, mislabeled samples, or erroneous representation of family relationships. This test was developed and its performance characteristics determined by [facility]. It has not been cleared or approved by the Food and Drug Administration. References: Margarita Perkins, Kaylynn ROA, Umesh R, Teresa WW, Freedom JH; ACMG Professional Practice and Guidelines Committee. Addendum: [employer] consensus statement on factor V Leiden mutation testing. Hina Med. 2020Aug 24. doi: 10.1038/o23866-987-10062-r. PMID: 19609426. Joann OTERO. Prothrombin Thrombophilia. 2005Jan 13 [Updated 2020Jul 26]. In: William MP, Alejandra HH, Tigist RA, et al., editors. Kristi(R) [Internet]. [place] ([place]): [facility]; 6500-0596. Available from: https://www.ncbi.nlm.nih.gov/ books/LJD0783/ Josias Perkins, Kaylynn ROA, José Manuel X, Randy B, Jaime EB, Ondina P, Gabriele CS; [employer] Washing Machine Mechanic Committee. Venous thromboembolism laboratory testing (factor V Leiden and factor II c.*97G>A), 2018 update: a technical standard of the [employer] and [employer] (ACMG). Hina Med. 2018 May;20(12):1892-0651. doi: 10.1038/[id number]-y. Epub 2017Mar 26. PMID: 56989216. Reviewed By Comment . Technical Component performed at [facility] RT Professional Component performed by: Autumn Mayberry, Ph.D., [facility] Director, Molecular Genetics [address] [place] [address] [facility] [address] Performed at: [facility] [address] [facility], [place] [id number] Union Laborer: Joaquin Angel [facility], Phone: [phone] Performing Lab: see note - [facility] Erythrocyte Sedimentation Ra te (Not yet reviewed by provider) Interpretation: Performing Lab: Notes/Report: [facility] , Erythrocyte Sedimentation Rate 52 <=20 mm/hr Performing Lab: see note ML - [facility] LB CRP (Not yet reviewed by pro vider) Interpretation: Performing Lab: Notes/Report: [facility] , C Reactive Protein <0.50 <=0.50 mg/dL Performing Lab: see note - [facility] LB Vitamin B12 (Not yet reviewe d by provider) Interpretation: Performing Lab: Notes/Report: [facility] , Vitamin B12 724 769-4124 pg/mL Performed at: [facility] [address] [id number] Union Laborer: Prabhakar Warren PhD, Phone: [phone] Performing Lab: see note - [facility] LB IRON AND TIBC (Not yet revie wed by provider) Interpretation: Performing Lab: Notes/Report: [facility] , Iron 34.0 50.0-170.0 ug/dL Total Iron Binding Capacity 380.0 250.0-450.0 u g/dL Percent Iron Saturation 8.9 Performing Lab: see note ML - [facility] LB Factor V Leiden Mutation (No t yet reviewed by provider) Interpretation: Performing Lab: Notes/Report: [facility] , Factor V Leiden Mutation Comment . Result: c.1601G>A (p.[id number]) - Not Detected This result is not associated with an increased risk for venous thromboembolism. See Additional Clinical Information and Comments. Additional Clinical Information: Venous thromboembolism is a multifactorial disease influenced by genetic, environmental, and circumstantial risk factors. The c.1601G>A (p. [id number]) variant in the F5 gene, commonly referred to as Factor V Leiden, is a genetic risk factor for venous thromboembolism. Heterozygous carriers of this variant have a 6- to 8-fold increased risk for venous thromboembolism. Individuals homozygous for this variant (ie, with a copy of the variant on each chromosome) have an approximately 80-fold increased risk for venous thromboembolism. Individuals who carry both a c.*97G>A variant in the F2 gene and Factor V Leiden have an approximately 20-fold increased risk for venous thromboembolism. Risks are likely to be even higher in more complex genotype combinations involving the F2 c.*97G>A variant and Factor V Leiden (PMID: 33921695). Additional risk factors include but are not limited to: deficiency of protein C, protein S, or antithrombin III, age, male sex, personal or family history of deep vein thromboembolism, smoking, surgery, prolonged immobilization, malignant neoplasm, tamoxifen treatment, raloxifene treatment, oral contraceptive use, hormone replacement therapy, and . Management of thrombotic risk and thrombotic events should follow established guidelines and fit the clinical circumstance. This result cannot predict the occurrence or recurrence of a thrombotic event. Comment: Genetic counseling is recommended to discuss the potential clinical implications of positive results, as well as recommendations for testing family members. Genetic Coordinators are available for health care providers to discuss results at [phone] Test Details: Variant Analyzed: c.1601G>A (p. [id number]), referred to as Factor V Leiden Methods/Limitations: DNA analysis of the F5 gene (NM_000130.5) was performed by PCR amplification followed by restriction enzyme analysis. The diagnostic sensitivity is >99%. Results must be combined with clinical information for the most accurate interpretation. Molecular-based testing is highly accurate, but as in any laboratory test, diagnostic errors may occur. False positive or false negative results may occur for reasons that include genetic variants, blood transfusions, bone marrow transplantation, somatic or tissue-specific mosaicism, mislabeled samples, or erroneous representation of family relationships. This test was developed and its performance characteristics determined by [facility]. It has not been cleared or approved by the Food and Drug Administration. References: Margarita Perkins, Kaylynn ROA, Umesh R, Teresa WW, Freedom JH; ACMG Professional Practice and Guidelines Committee. Addendum: [employer] consensus statement on factor V Leiden mutation testing. Hina Med. 2020Aug 24. doi: 10.1038/[id number]-g. PMID: 05698340. Joann OTERO. Factor V Leiden Thrombophilia. 1998November 02 (Updated 2017Jun 25). In: William MP, Alejandra HH, Tigist RA, et al., editors. Kristi(R) (Internet). [place] ([place]): [facility]; 5955-5430. Available from: https://www.ncbi.nlm.nih.gov/ books/VJC6864/ Josias S, Kaylynn ROA, José Manuel X, Randy B, Jaime EB, Ondina P, Gabriele CS; [employer] Laboratory Washing Machine Mechanic Committee. Venous thromboembolism laboratory testing (factor V Leiden and factor II c.*97G>A), 2018 update: a technical standard of the [employer] (ACMG). Hina Med. 2018 May;20(12):6266-2039. doi: 10.1038/[id number]-[id number]. Epub 2017Mar 26. PMID: 03435831. Reviewed By Comment . [employer] Randolph Chavez, Ph.D., [facility] Director, Molecular Genetics [address] [facility] Performed at: - [facility] [address] [place], [place] [id number] Union Laborer: Joaquin Angel [facility], Phone: [phone] Technical Component performed at [facility] Professional Component performed by: Performing Lab: see note LC - [facility] LB FERRITIN (Not yet reviewed b y provider) Interpretation: Performing Lab: Notes/Report: [facility] , Ferritin 10.0 8.0-252.0 ng/mL Performing Lab: see note ML - [facility] LB Reason For Referral No Information Encounters Encounter Location Date Provider Diagnosis [facility] Oncology [address] [facility] [place] [address] 12/08/2023 July [facility]la [facility] Oncology [address] [facility] [place] [address] 12/22/2023 Julynidhi Lemus [facility] Oncology [address] [facility] [place] [address] 02/09/2024 July Allan [facility] Oncology [address] [facility] [place] [address] 06/07/2024 Julynidhi Lemus [facility] Oncology [address] [facility] [place] [address] 05/05/2024 July Allan [facility] Oncology [address] [facility] [place] [address] 07/05/2024 Julynidhi Lemus [facility] Oncology [address] [facility] [place] [address] 06/13/2024 Julysonja Lemus [facility] Oncology [address] [facility] [place] [address] 06/20/2024 July Allan [facility] Oncology [address] [facility] [place] [address] 06/27/2024 Julysonja Lemus [facility] Oncology [address] [facility] [place] [address] 07/04/2024 Julysonja Lemus [facility] Oncology [address] [facility] [place] [address] 08/30/2024 July Allan [facility] Oncology [address] [facility] [place] [address] 11/01/2024 July Lemus Plan Of Treatment Pending Test Test Name Order Date CBC AUTO DIFF 01/13/2024 CBC AUTO DIFF 02/09/2024 CBC AUTO DIFF 06/02/2024 CBC AUTO DIFF 07/05/2024 CBC AUTO DIFF 10/31/2024 CRP 12/22/2023 FERRITIN 12/22/2023 FERRITIN 06/02/2024 FERRITIN 02/09/2024 FERRITIN 07/05/2024 FERRITIN 10/31/2024 IRON AND TIBC 07/05/2024 IRON AND TIBC 10/31/2024 IRON AND TIBC 06/02/2024 IRON AND TIBC 02/09/2024 IRON AND TIBC 12/22/2023 LAB TESTING 12/22/2023 PROF CHEM 8 (BAS METB) 10/31/2024 PROF CHEM 8 (BAS METB) 07/05/2024 PROF CHEM 8 (BAS METB) 06/02/2024 VITAMIN D 25 OH 07/05/2024 VITAMIN D 25 OH 10/31/2024 VITAMIN D 25 OH 06/02/2024 VITAMIN D 25 OH 02/09/2024 Erythrocyte Sedimentation Rate Vitamin B12 02/09/2024 Factor V Leiden Mutation 12/22/2023 Factor II, DNA Analysis 12/22/2023 Beta-2 Glycoprotein I Ab,G,A,M Vitamin B12 10/31/2024 Vitamin B12 07/05/2024 Vitamin B12 06/02/2024 Next Appt Details Provider Name:July Lemus , 01/10/2025 10:30:00 AM, [address] [place], [address], Insurance Providers Payer Name Payer Address Payer Phone Subscriber Number Group Number Insured Name Patient Relationship to Insured Coverage Start Date Coverage End Date [employer] MED[employer]ARE [address] [place], [place] [id number] Maricarmen Tran Self - patient is the insured 5 MEDICAID [place] 2ND INS [address] OFFICE OF [place], [place] [id number] Maricarmen Tran Self - patient is the insured 4
--- OUTSIDE RECORDS SUMMARY | 2024-12-04 21:20 | XMS_ITS | Encounter Summary ---
Author Organization [facility] Address [address] [place] [address] Phone Care Team Providers Care Coffee Host Name Role Phone Sharyn Bradford MD Primary Care Provider [phone] Reason for Visit * Reason Comments Med Refill Encounter Details Date Type Department Care Team ([facility] st Contact Info) Description 01/30/2024 Refill [facility] [address] [facility] [address] [place] [address] Rita Still MD [address] [facility] [address] [place] [address] Social History Tobacco Use Types Packs/Day Years Used Date Smoking Tobacco: Never Smokeless Tobacco: Never Alcohol Use Standard Drinks/Week Comments Not Currently 0 (1 standard drink = 0.6 oz pur e alcohol) Comments Unknown Sex and Gender Information Value Date Recorded Sex Assigned at Not on file Legal Sex Female 1:37 PM EST Gender Identity Not on file Sexual Orientation Not on file documented as of this encounter Plan of Treatment Not on file documented as of this encounter Visit Diagnoses Not on filedocumented in this encounter Care Teams Coffee Host Relationship Specialty Start Date End Date Sharyn Bradford MD [address] [place] [address] [address] [place] [address] PCP - General 03/02/20 documented as of this encounter
--- OUTSIDE RECORDS SUMMARY | 2024-12-04 21:20 | XMS_ITS | Encounter Summary ---
Author Organization [facility] Address [address] [place] [address] Care Team Providers Care Apparel Machinery Instructor Name Role Phone Sharyn Bradford MD Primary Care Provider [phone] Source Comments In the event this information is protected by the Federal Confidentiality of Alcohol and Drug AbusePatient Records regulations: The Federal rules restrict any use of the information to criminally investigate or prosecute any alcohol or drug abuse patient.[facility] Encounter Details Date Type Department Care Team (Late st Contact Info) Description 09/16/2023 Patient Msg General Surgery [facility] [address] [place] [address] Anshu Cheney MD [address] [place] [address] Appointment Request Social History Tobacco [...] N ot on file 05/26/2020 Data from: https://www.neighborhoodatlas.medicine.[facility].edu/. Last address used for calculation Not on [...] 6:14 PM EDT Wisam Carvajal RN * Because of a physical, mental, [...] on filedocumented in this encounter Care Teams Apparel Machinery Instructor Relationship Specialty Start Date End Date Sharyn Bradford MD [address] [place] [address] PCP - General 10/18/13 documented as of this encounter
--- OUTSIDE RECORDS SUMMARY | 2024-12-04 21:20 | XMS_ITS | Clinical Summary ---
Author Organization [facility] Address [address] [place] [address] Care Team Providers Care Malariologist Name Role Phone Sharyn Bradford MD Primary Care Provider [phone] Allergies Active Allergy Reactions Criticality Noted Date Comments Hydromorphone (Bulk) Itching Medium 03/28/2019 Medications promethazine (PHENERGAN) 25 mg suppositoryIndica tions:Gastropares is 1 Suppository by RECTAL route every 6 hours as needed. 180 Suppository 6 019 Active tiZANidine (ZANAFLEX) 4 mg tablet Take 4 mg by mouth daily at bedtime. Active ondansetron orally disintegrating (ZOFRAN ODT) 4 mg disintegrating tablet Take 1 tablet by mouth every 4 hours as needed for Nausea/Vomiting. 8 tablet 019 Active cholecalciferol (VITAMIN D3) 1,000 unit tab tablet Take 1,000 Units by mouth twice daily. Active acetaminophen (TYLENOL) 500 mg/15 mL liqd Take 500 mg by mouth every 8 hours as needed. Active acetaZOLAMIDE (DIAMOX) 250 mg tablet Take 250 mg by mouth twice daily. Active ubrogepant (UBRELVY) 100 mg tablet Take 100 mg by mouth as needed. Active LORazepam (ATIVAN) 0.5 mg Take 1 mg by mouth daily at bedtime. Active linaclotide (LINZESS) 145 mcg capsule Take 1 capsule by mouth once daily. 30 capsule 11 021 Active fremanezumab-vfrm (AJOVY AUTOINJECTOR) 225 mg/1.5 mL auto-injector Inject 225 mg subcutaneously once every month. Do not shake. Active gabapentin (NEURONTIN) 250 mg/5 mL (5 mL) oral solution Take 6 mL by mouth every 8 hours for 90 days. 540 mL 2 021 Active Active Problems Problem Noted Date Diagnosed Date Flank pain 11/09/2020 Non-intractable vomiting with nausea 05/25/2020 Abdominal pain 10/23/2019 Malfunction of jejunostomy tube 07/10/2019 Obesity, Class II, BMI 35-39.9 04/21/2019 Headache 04/19/2019 Chiari I malformation 03/28/2019 Acute alteration in mental status 03/11/2019 Dehydration 12/24/2018 S/P partial gastrectomy 12/07/2018 Stricture of pylorus 12/07/2018 Anastomotic stricture of stomach 11/02/2018 Nausea 10/21/2018 Mild protein-calorie malnutrition 08/18/2018 Intractable nausea and vomiting 08/15/2018 Obesity, Class III, BMI >= 40 07/22/2018 Gastroparesis 05/20/2018 Overview (03/12/2019): patient has known gastroparesis. G-tube in place and is on tube feeds. s/p surgery with removal of significant portion of stomach Plan continue with tube feeds Assessment & Plan (03/12/2019 11:55 AM EDT): Assessment: - history of gastroparesis - J-tube in place, tube feeds PLAN: - Continue tube feedings Esophagitis 11/24/2013 Eosinophilic esophagitis 11/10/2013 Overview (11/14/2013): -Recent diagnosis. -Biopsy proven per patient. -Was on Flovent then a five day course of prednisone was given (completed) Plan: Continue Flovent. Vision abnormalities 10/24/2013 Overview (10/25/2013): Pt complains of seeing white spots, her visual field and acuity do not seem to be affected. Ophthalmology consulted, eye exam unremarkable Her dizziness improved, orthostatic negative, no ear symptoms. Anemia 10/24/2013 Overview (10/24/2013): Acute, likely 2/2 vaginal bleed, plan for IUD as out-pt. Hgb stable Constipated 10/22/2013 Overview (10/25/2013): likely 2/2 narcotic, passing gas, does not feel constipated, refuses cotton seed enema Will D/C home with senna and Miralax Vaginal bleeding 10/20/2013 Overview (10/25/2013): Pt had her period started week ago was slowing down, got much worse and heavier after Heparin drip, soaks 1 pad Q15 min, now Q30 minutes. . Pt denies dizziness today, VS stable, Hgb relatively stable Benefits/risk explained to pt. Vascular Medicine consulted for vaginal bleed. Continue AC for now. Gynecology consulted as well, they recommended IUD for detention management and If becomes hemodynamically unstable or acutely symptomatic with vaginal bleeding, recommend Megace 40mg BID for cessation of bleeding. 10/23: Vaginal bleed slowed down, changes pad only every few hours, Hgb relatively stable, VS stable, pt is asyptomatic, dizziness is better 10/24: 2 pads last 24 hours, CBC and VS stable 10/25: Almost gone. Gynecology as out-pt. 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 -INR on presentation 2.8 - INR 2.3 today Plan: Dispo planning Anticoagulation management encounter 10/20/2013 Acute embolism and thrombosi s of superficial vein of both upper extremities 10/20/2013 Arm edema 10/20/2013 Left arm swelling 10/18/2013 Overview (10/25/2013): Reported Hx of her mother with blood clot at age of 22 but has been on OCP? Will need work up once out of acute phase, in couple weeks. Pt herself had been on OCP for couple weeks but stopped recently. Acute DVT per US on 10/19, started on IV Heparin and Coumadin. Daily INR. INR still 1.5 OK per VM to D/C home on Lovenox and Coumadin to 7.5 daily bridge as vaginal bleed almost stopped. INR on and PCP f/u on Thursday Final duration of Coumadin is at least 3 months, but final decision as per her doctor. Work up for your blood clot per her PCP was recommended. GERD (gastroesophageal reflux disease) Overview (03/12/2019): continued GERD Plan continue Protonix Assessment & Plan (03/12/2019 11:55 AM EDT): Assessment: - History of GERD PLAN: - Continue PPI Resolved Problems Problem Noted Date Diagnosed Date Resolved Date Nausea & vomiting 06/07/2019 06/09/2019 Dislodged jejunostomy tube 05/17/2019 1 07/18/2018 Syncope 04/07/2019 08/15/2019 Syncope 03/28/2019 03/29/2019 Headache 03/27/2019 03/29/2019 Headache in front of head 03/12/2019 Assessment & Plan (03/12/2019 11:56 AM EDT): Assessment: - Frontal headache for past 2-3 days - Some photophobia - denies visual changes - intermittent dizziness with standing, this is not new PLAN: - headache cocktail PRN - MRI brain - EEG Altered behavior 03/11/2019 03/29/2019 Overview (03/12/2019): Altered Mentation beginning on 02/26, thought due to UTI initially. Placed on CIpro course of ABX without improvement presented to several OSH ED and admitted once to [facility] with Negative MRI/EEG work up [...] Clinic - Magnesium, Phosphorous - f/u Neurology Assessment & Plan (03/12/2019 11:55 AM EDT): Assessment: - Confusion and memory los beginning around 02/26, origionally thought to be associated with UTI. Placed on Cipro and presented to OSH [facility] and had a negative culture, antibiotics were stopped - She had an MRI/EEG workup at [facility] - negative - Continues symptoms- confusion, memory loss, slow to respond, slowed speech, numbness intermittently in upper extremities. New frontal headache over past 2-3 days, no visual changes. PLAN: - EEG - MRI kem MYRIAM - Thiamine, B6, B12, Ammonia, Lead, niacin, Ferritin, copper, Vit E pending - PRN headache cocktail - Neurology consulted Nausea & vomiting 10/13/2018 10/15/2018 Hypokalemia 10/22/2013 10/24/2013 Overview (10/23/2013): K 3.3, likely 2/2 poor oral intake, replaced. Abdominal pain 10/18/2013 05/18/2019 Overview (11/14/2013): - Hx of cholecystectomy and appendectomy. - [...] and Nausea control. Nausea and vomiting 10/18/2013 03/29/20 19 Overview (10/19/2013): Please see abdominal pain for more details. Zofran prn. Immunizations Immunization Administration Dates Next Due influenza (IIV4) vaccine, ag e 6 mo - 64 yr, quadrivalent, PF (AFLURIA, FLUARIX, FLULAVAL, FLUZONE) 05/27/2020,04/10/2019 Family History Medical History Relation Comments ALS Father Ischemic Heart Disease Father age 56 Diabetes Mother Hypertension Other No Known Problems Sister Relation Status Comments Father Mother Alive Other Sister Social History Tobacco Use Types Packs/Day Years [...] N ot on file 05/26/2020 Data from: https://www.neighborhoodatlas.medicine.[facility].edu/. Last address used for calculation Not on file 05/26/2020 Comments No Sex and Gender Information Value Date Recorded Sex Assigned at Female 10/18/2020 8:13 PM EDT Legal Sex Female 9:42 AM EST Gender Identity Female 10/18/2020 8:13 PM EDT Sexual Orientation Straight 10/18/2020 8: 13 PM EDT Last Filed Vital Signs Vital Sign Reading Time Taken Comments Blood Pressure 118/63 11/13/2020 2:52 PM EDT Pulse 80 11/13/2020 2:52 PM EDT Temperature 36.5 C (97.7 F) 11/12/2020 11:40 AM EDT Respiratory Rate 18 11/12/2020 11:40 AM EDT Oxygen Saturation 100% 11/13/2020 2:52 PM EDT Inhaled Oxygen Concentration - - Weight 97.5 kg (215 lb) 11/09/2020 2:15 PM EDT Height 167.6 cm (5' 5.98 ) 11/09/2020 2:15 PM ED T Body Mass Index 34.72 11/09/2020 2:15 PM EDT Plan of Treatment Health Maintenance Due Date Last Done Comments Anxiety Screening 2000 Depression Screening 2000 HIV Screening 2000 Hepatitis C Screening 2000 DTaP,Tdap,Td Vaccine (1 - Tdap) 2001 Hepatitis B Vaccine (1 of 3 - 19+ 3-dose series) 2001 Cervical Cancer Screening 2016 2013 Mammogram Screening 2022 Covid-19 Vaccine ( - 2023-2 5 season) 2024 Influenza Vaccine (Season Ended) 2025 05/27/2020, 08/29/2019, 04/10/2019, Additional history exists Medical Devices Implanted Type Area Insurance Loss Adjuster Device Identifier Shelf Expiration Date Model / Serial / Lot St Nini [id number]/46 Implanted:Qty: 1 on 04/11/[address] [employer]I 2087TC / / St Nini [id number]/52 Implanted:Qty: 1 on 04/11/[address] [employer]I 8TC / / St Nini Assurity Mri [id number] Implanted:Qty: 1 on 04/11/[address] NINI [id number] / / [id number] Assurity [id number] Implanted:04/11 (Quantity not on file) Pacemaker ST NINI 2272 Assurity MRI / [id number] / Tray Port-A-Cath Ii 7.8fr 2.6mm 1.6mm Polysulfone Titanium Polyurethane 76 - [id number] Implanted:07/22 at [facility] (Quantity not on file) Port Right: Chest Wall [employer] 05/25/2022 [id number] / / [id number] Corflo Feeding Tube 10f 60cm Implanted:Qty: 1 on 08/17/2018 at [facility] Tube Right: Nose [employer] 05/22/2023 [id number] / / [id number] Kit Ponsky 20fr Silicone Peg Pull Deluxe Kit Non Safety Sterile - [id number] Implanted:01/31 at [facility] (Quantity not on file) Tube Left: Abdomen BARD PERIPHERAL VASCULAR 03/19/2020 [id number] / / [id number] Tube Claudio Secur-Migue 20fr Standard J Silicone Jejunostomy Trimmable Distal - [id number] Implanted:04/20 at [facility] (Quantity not on file) Tube Left: [facility]domen [facility] 10/21/2019 0200-20 / / [id number] Tube Claudio Secur-Migue 18fr Standard Silicone Natural Rubber Jejunostomy - [id number] Implanted:07/11 at [facility] (Quantity not on file) Tube Left: Abdomen [facility] 10/20/2020 0200-18 / / [id number] Kit Endovive 20fr Xylocaine Silicone Peg Pull Method Ampule Trocar Cannula - [id number] Implanted:10/24 at [facility] (Quantity not on file) Tube N/A: Abdomen Leyou software ENDOSCOPY 12/19/2020 6646 / / [id number] Insurance MEDICARE MEDICAID [place] Advance Directives * Full Code (Latest Code Status on File) Date Activated Date Inactivated Comments 11/12/2020 7:42 AM 11/12/2020 10:05 PM Question Answer Comments Full Code Order Discussed With: Patient * Full Code Date Activated Date Inactivated Comments 10/26/2019 3:29 PM 10/26/2019 6:42 PM Question Answer Comments Full Code Order Discussed With: Patient * Full Code Date Activated Date Inactivated Comments 08/11/2019 10:46 AM 08/15/2019 6:10 PM Question Answer Comments Full Code Order Discussed With: Patient Care Teams Malariologist Relationship Specialty Start Date End Date Sharyn Bradford MD [address] [place] [address] PCP - General 10/18/13
--- OUTSIDE RECORDS SUMMARY | 2024-12-04 21:20 | XMS_ITS | Encounter Summary ---
Author Organization [facility] Address [address] [place] [address] Care Team Providers Care Fish And Wildlife Biologist Name Role Phone Sharyn Bradford MD Primary Care Provider [phone] Source Comments In the event this information is protected by the Federal Confidentiality of Alcohol and Drug AbusePatient Records regulations: The Federal rules restrict any use of the information to criminally investigate or prosecute any alcohol or drug abuse patient.[facility] Encounter Details Date Type Department Care Team (Late st Contact Info) Description 06/17/2019 Patient Msg Nutrition Therapy [address] [id number] Lea Beyer, [address] [phone] RE: Appointment Cancellation Request Social History Tobacco Use Types Packs/Day Years Used Date Smoking Tobacco: Never Smokeless Tobacco: Never Alcohol Use Standard Drinks/Week Comments No 0 (1 standard drink = 0.6 oz pur e alcohol) PHQ-2 Answer Date Recorded PHQ-2 Score 0 05/02/2019 Comments No Sex and Gender Information Value Date Recorded Sex Assigned at Female 10/18/2020 8:13 PM EDT Legal Sex Female 9:42 AM EST Gender Identity Female 10/18/2020 8:13 PM EDT Sexual Orientation Straight 10/18/2020 8: 13 PM EDT documented as of this encounter Functional Status * Are you deaf or do you have serious difficulty hearing? Answer Date of Assessment Author No 06/09/2019 11:28 AM Lucero Ansari RN * Are you blind or do you have serious difficulty seeing, even when wearing glasses? Answer Date of Assessment Author No 06/09/2019 11:28 AM Lucero Ansari RN * Do you have serious difficulty walking or climbing stairs? Answer Date of Assessment Author No 06/09/2019 11:28 AM Lucero Ansari RN * Do you have difficulty dressing or bathing? Answer Date of Assessment Author No 06/09/2019 11:28 AM Lucero Ansari RN * Because of a physical, mental, or emotional condition, do you have difficulty doing errands alone such as visiting a doctor's office or shopping? Answer Date of Assessment Author No 06/09/2019 11:28 AM Lucero Ansari RN documented as of this encounter Mental Status * Because of a physical, mental, or emotional condition, do you have serious difficulty concentrating, remembering, or making decisions? Answer Entry Date Author No 06/09/2019 11:28 AM Lucero Ansari RN documented in this encounter Plan of [...] documented as of this encounter Care Teams Fish And Wildlife Biologist Relationship Specialty Start Date End Date Sharyn Bradford MD [address] [place] [address] PCP - General 10/18/13 documented as of this encounter
--- OUTSIDE RECORDS SUMMARY | 2024-12-04 21:20 | XMS_ITS | Encounter Summary ---
Author Organization [facility] Address [address] [place] [address] Care Team Providers Care Hr Consultant Name Role Phone Sharyn Bradford MD Primary Care Provider [phone] Source Comments In the event this information is protected by the Federal Confidentiality of Alcohol and Drug AbusePatient Records regulations: The Federal rules restrict any use of the information to criminally investigate or prosecute any alcohol or drug abuse patient.[facility] Encounter Details Date Type Department Care Team (Late st Contact Info) Description 04/03/2019 Patient Msg Nutrition Therapy [facility] [address] [place] [address] [facility] [address] [place], [place] [phone] RE: Appointment Cancellation Request Social History Tobacco [...] documented as of this encounter Care Teams Hr Consultant Relationship Specialty Start Date End Date Sharyn Bradford MD [address] [place] [address] PCP - General 10/18/13 documented as of this encounter
--- OUTSIDE RECORDS SUMMARY | 2024-12-04 21:20 | XMS_ITS | Encounter Summary ---
Author Organization [facility] Address [address] [place] [address] Phone Care Team Providers Care Rotary Drill Operator Helper Name Role Phone Sharyn Bradford MD Primary Care Provider [phone] Encounter Details Date Type Department Care Team (Late st Contact Info) Description 01/20/2023 Scanned Document [facility] [address] [place] [address] Conversion, Onbase Social History Tobacco Use Types Packs/Day Years Used Date Smoking Tobacco: Never Assessed Comments Unknown Sex and Gender Information Value Date Recorded Sex Assigned at Not on file Legal Sex Female 1:37 PM EST Gender Identity Not on file Sexual Orientation Not on file documented as of this encounter Plan of Treatment Not on file documented as of this encounter Procedures Procedure Name Priority Date/Time Associated Diagnosis Comments OUTSIDE GENERIC TESTING 01/20/2023 OUTSIDE GENERIC TESTING 01/20/2023 ELECTROCARDIOGRAM RHYTHM STRIP 01/20/2023 documented in this encounter Results * OUTSIDE GENERIC TESTING (01/20/2023) Anatomical Region Laterality Modality Other Narrative 01/20/2023 Ordered by an unspecified provider. us Onbase Conversion OUTSIDE SCAN Final Result * OUTSIDE GENERIC TESTING (01/20/2023) Anatomical Region Laterality Modality Other Narrative 01/20/2023 Ordered by an unspecified provider. us Onbase Conversion OUTSIDE SCAN Final Result * ELECTROCARDIOGRAM RHYTHM STRIP (01/20/2023) Narrative 01/20/2023 Ordered by an unspecified provider. us Onbase Conversion ECG ORDERABLES Final Result documented in this encounter Visit Diagnoses Not on filedocumented in this encounter Care Teams Rotary Drill Operator Helper Relationship Specialty Start Date End Date Sharyn Bradford MD [address] [place] [address] PCP - General 03/02/20 documented as of this encounter
--- OUTSIDE RECORDS SUMMARY | 2024-12-04 21:20 | XMS_ITS | Clinical Summary ---
Author Organization [facility] Address [address] [place] [address] Phone Care Team Providers Care Nitrate Operator Name Role Phone Sharyn Bradford MD Primary Care Provider [phone] Allergies Active Allergy Reactions Criticality Noted Date Comments Hydromorphone Itching,Unknown 03/27/2019 Medications ARIPiprazole (Abilify) 30 mg tablet Take 1 tablet (30 mg) by mouth once daily. 09/03/2022 Active erenumab (Aimovig Autoinjector) 70 mg/mL injection Inject 1 mL (70 mg) under the skin every 28 (twenty-eigh t) days. 12/19/2020 Active linaCLOtide (Linzess) 145 mcg capsule Take 1 capsule (145 mcg) by mouth once daily. 12/13/2020 Active metoprolol succinate XL (Toprol-XL) 25 mg 24 hr tablet Take 1 tablet (25 mg) by mouth once daily. 01/20/2023 Active mirtazapine (Remeron) 15 mg tablet Take 1 tablet (15 mg) by mouth once daily at bedtime. 04/14/2023 Active Invega Sustenna 234 mg/1.5 mL syringe Inject 1.5 mL (234 mg) into the muscle. 04/06/2023 Active traZODone (Desyrel) 50 mg tablet Take 1 tablet (50 mg) by mouth once daily at bedtime. 09/03/2022 Active venlafaxine XR (Effexor-XR) 150 mg 24 hr capsule Take 1 capsule (150 mg) by mouth once daily. Active Active Problems Problem Noted Date Diagnosed Date Anxiety 06/08/2023 Cardiac pacemaker 06/08/2023 Complete heart block 06/08/2023 IIH (idiopathic intracranial hypertension) 06/08 Renal mass 06/08/2023 Atrial tachycardia 06/08/2023 Sinus node dysfunction (Multi) 06/08/2023 Sinus tachycardia 06/08/2023 Seizures (Multi) 06/08/2023 Syncope 06/08/2023 Chiari I malformation (Multi) 03/28/2019 Mild protein-calorie malnutrition (Multi) 2018 Obesity, Class III, BMI 40-49.9 (morbid obesity) 07/22/2018 Eosinophilic esophagitis 11/10/2013 Overview (06/08/2023): -Recent diagnosis. -Biopsy proven per patient. -Was on Flovent then a five day course of prednisone was given (completed) Plan: Continue Flovent. Anemia 10/24/2013 Overview (06/08/2023): Acute, likely 2/2 vaginal bleed, plan for IUD as out-pt. Hgb stable Acute thrombosis of left axillary vein (Multi) 0 10/20/2013 Family History Medical History Relation Name Comments Diabetes Father Glaucoma Father cardiac disorder Father Diabetes Mother Relation Name Status Comments Father Mother Social History Tobacco Use Types Packs/Day Years [...] Sign Reading Time Taken Comments Blood Pressure 114/72 07/22/2022 10:12 AM EST Pulse 73 07/22/2022 10:12 AM EST Temperature - - Respiratory Rate 18 04/30/2021 1:15 PM EST Oxygen Saturation 100% 06/20/2020 6:50 AM EST Inhaled Oxygen Concentration - - Weight 117 kg (259 lb) 07/22/2022 10:12 AM EST Height 167.6 cm (5' 6 ) 07/22/2022 10:12 AM EST Body Mass Index 41.8 07/22/2022 10:12 AM EST Plan of Treatment Health Maintenance Due Date Last Done Comments HIV Screening 1982 Lipid Panel 1982 Medicare Annual Wellness Visit (AWV) 1982 Diabetes Screening 2000 Hepatitis C Screening 2000 Hepatitis B Vaccines (1 of 3 - 19+ 3-dose series) 2001 Cervical Cancer Screening 10/31/2003 HPV/Cotest 10/31/2003 Pap Smear 10/31/2003 DTaP/Tdap/Td Vaccines (1 - Tdap) 2004 MMR Vaccines (1 of 1 - Standard series) 05/17/2009 Varicella Vaccines (1 of 2 - 13+ 2-dose series) 05/17/2009 Mammogram 2022 COVID-19 Vaccine (1 - season) 2024 Influenza Vaccine (Season Ended) 2025 05/27/2020, 08/29/2019, 04/10/2019, Additional history exists Zoster Vaccines (1 of 2) 2032 HIB Vaccines Aged Out No longer eligi ble based on patient's age to complete this topic HPV Vaccines Aged Out No longer eligi ble based on patient's age to complete this topic Hepatitis A Vaccines Aged Out No long er eligible based on patient's age to complete this topic IPV Vaccines Aged Out No longer eligi ble based on patient's age to complete this topic Meningococcal Vaccine Aged Out No rochelle sen eligible based on patient's age to complete this topic Pneumococcal Vaccine: Pediatrics and At-Risk Adult Patients Aged Out No longer eligible based on patient's age to complete this topic Rotavirus Vaccines Aged Out No longer eligible based on patient's age to complete this topic Insurance AETNA MEDICARE ASSURE MEDICAID AETNA MEDICARE ASSURE MEDICAID Care Teams Nitrate Operator Relationship Specialty Start Date End Date Sharyn Bradford MD [address] [place] [address] [address] [place] [address] PCP - General 03/02/20
--- OUTSIDE RECORDS SUMMARY | 2024-12-04 21:21 | XMS_ITS | CCD ---
Author Organization [facility] Care Team Providers Care Examining Chair Assembler Name Role Phone Unavailable Primary Care Provider UnavailROSELINE Johnson Referring Unavailable Viktor Sotelo Unavailable Viktor Sotelo MD Primary Care Provider [phone] MD Viktor Sotelo Primary Care Provider MD Cornell Mcnair Emergency Provider MD Eduardo Swain Admit Provider MD Eduardo Swain Attending Provider [phone] DO Urbano Palma Other Provider OSVALDO Oconnor Emergency Provider [phone] MD Viktor Sotelo Primary Care Provider DO Urbano Palma Attending Provider DO Michael Cerda Emergency Provider DO Delaney Carlisle Attending Provider MD Viktor Sotelo Primary Care Provider DO Urbano Palma Attending Provider MD Eduardo Swain Admit Provider MD Eduardo Swain Attending Provider [phone] Unavailable Unavailable MD Dustin Cody Admit Provider [...] Admit Provider MD Toribio Cerda Attending Provider [phone] MD Viktor Sotelo Primary Care Provider Louie, DO Clement Attending Provider Parminderlorene DO Michael Murrieta Emergency Provider DUANE Cortez Emergency Provider DO Keven Florentino Emergency Provider CANDICE .KRISTA Admitting Unavailable KRISTA ANTONIO Consulting Unavailable KRISTA ANTONIO Attending Unavailable DR VIKTOR SOTELO Primary Care Unavailable DR VIKTOR SOTELO Primary Care Unavailable ALYSSA ZHANG Admitting Unavailable ALYSSA ZHANG Consulting Unavailable ALYSSA ZHANG Attending Unavailable MD Viktor Sotelo Primary Care Provider [phone] BRANDIE Dejesus Other Provider Unavailable BRANDIE Palmer Other Provider Unavailable BRANDIE Garrett Other Provider Unavailable BRANDIE Arana Other Provider Unavailable BRANDIE Orta Other Provider Unavailable Mario RN Yisel Other Provider Unavailable MD Magda Hurley Other Provider MD hE Jennings Other Provider DUANE Paiz Other Provider DO Mahad Mandel Other Provider MD Luciano Pedro Other Provider DO Gerry Noble Other Provider MD Mike Smart Other Provider [phone] MD Marylu Kemp Other Provider Donny ANP- Afshan Other Provider MD Faby Watts Other Provider [phone] MD Mitesh Hoffman Other Provider MD Sintia Gan Other Provider MD Siobhan Zuniga Other Provider DO Dennis Espinoza Other Provider MD Dawson Branham Other Provider MD Yossi Peterson Other Provider Glynn, SAND SCREENER OPERATOR-C Gretta Helms Other Provider [phone] MD Yonny Bazan Other Provider MD Trace Morataya Other Provider MD Dimitris Joe Other Provider DO Verona Waterman Other Provider DO All Bloom Other Provider DO Joe Holland Other Provider DUANE Roman Other Provider DO Rosendo Holland Other Provider MD Harriet Andrade Other Provider DUANE Mcnair Other Provider [phone] DUANE Montana Other Provider Shahida, BRANDIE Hurtado Other Provider Unavailable MD Viktor Sotelo Primary Care Provider MD Toribio Cerda Admit Provider [phone] MD Toribio Cerda Attending Provider [phone] Niles Ke Emergency Provider MD Eduardo Swain Admit Provider [phone] MD Eduardo Swain Attending Provider MD Michael Viveros Attending Provider Sanchez, Dr. [...] Sotelo, Dr. Viktor Pack Primary Care Unav asher [...] Sotelo, Dr. Viktor Pack Primary Care Unav asher Sotelo, Dr. Viktor Pack Primary Care Unav ailable NE, MD RITA AHUMADA Attending Unavailabl e NE, MD RITA AHUMADA Referring Unavailabl e Sanchez, Dr. Viktor Pack Primary Care Unav Viktor Rivera MD Primary Care Provider Unavailable Viktor Sotelo MD Primary Care Provider [phone] Viktor Sotelo MD Primary Care Provider VIKTOR SOTELO Primary Care Unavailable JESSE SIMS Attending Unavailable LEMUEL RENTERIA Admitting Unavailable MARKER, SUJATA Referring Unavailable TONYA JACOBS Consulting Unavailable GILBERTO LOCKHART Consulting Unavailable RAYMOND ORTIZ Consulting Unavailable MD Viktor Sotelo Primary Care Provider [phone] MD Nimesh Cerda Attending Provider Viktor Sotelo MD Primary Care Provider [phone] Viktor Sotelo MD Primary Care Provider Estela Chung PA-C Attending Provider Nimesh Cerda MD Attending Provider Michael Viveros MD Attending Provider Michael VIVEROS Referring Unavailable ESTELA CHUNG Attending Unavailable ESTELA CHUNG Attending Unavailable ESTELA CHUNG Attending Unavailable Michael VIVEROS Admitting Unavailable Michael VIVEROS Attending Unavailable Michael VIVEROS Referring Unavailable ESTELA CHUNG Attending Unavailable Viktor Sotelo MD Primary Care Provider Michael Viveros MD Attending Provider Nimesh Cerda MD Attending Provider [phone] Tete Snell MD Attending Provider NE, RITA J Referring Unavailable SOTELO, VIKTOR E Primary Care Unavailable NE, RITA J Referring Unavailable SOTELO, VIKTOR E Primary Care Unavailable NE, RITA J Referring Unavailable SOTELO, VIKTOR E Primary Care Unavailable NE, RITA J Referring Unavailable SOTELO VIKTOR E Primary Care Unavailable Alis PATINO, Andrius Schaeffer Attending Unavailable Alis PATINO, Andrius Vleila Attending Unavailable Alis PATINO, Andrius Vytdelfino Attending Unavailable Alis PATINO, Andrius Vytdelfino Attending Unavailable Viktor Sotelo MD Primary Care Provider [phone] Nimesh Cerda MD Attending Provider Gaurav Oliver MD Attending Provider [phone] Nimesh Cerda Admitting Unavailab le Nimesh Cerda Attending Unavailab le Viktor Sotelo Primary Care Unavailable Gaurav Oliver Admitting Unavailable Gaurav Oliver Attending Unavailable Viktor Sotelo Primary Care Unavailable Michael Viveros Attending Unavailable Viktor Sotelo Primary Care Unavailable Michael Viveros Admitting Unavailable Viktor Sotelo Primary Care Unavailable Giedraitis, Andrius Admitting Unavailable Giedraitis, Andrius Attending Unavailable Viktor Sotelo Primary Care Unavailable Giedraitis, Andrius Admitting Unavailable Giedraitis, Andrius Attending Unavailable Viktor Sotelo Primary Care Unavailable Sheldon, Estela E Admitting Unavailable SheldonMartha engleEstela E Attending Unavailable Allergies Allergy Classification Reported Allergen(s) Allergy Type Date of Onset Reaction(s) Facility (20 sources) HYDROmorphone; 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: [Dilaudid] Drug Allergy 9 Itching (finding), Unknown (qualifier value), Itching, Unknown [facility] (2 sources) HYDROmorphone Drug Allergy 9 Itching [facility] (19 sources) HYDROmorphone; 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: [HYDROmorphone] Drug Allergy 9 Itching [facility] (1 source) HYDROmorphone Drug Allergy [facility] (1 source) Fluarix [id number] (PF) Drug allergy (disorder) 2 [facility] Medications Current Medications Medication Drug Class(es) Dates Sig (Normalized) Sig (Original) ARIPiprazole 30 mg oral tablet (20 sources) Atypical Antipsychotic Start: 09-03-2022 take 1 tablet by mouth once daily Aripiprazole 30 mg tablet Active 30 MG PO Daily September 03, 2022 12:00am Start: 08-02-2022 End: 09-03-2022 Aripiprazole (Abilify) 20 [...] Tablet Discontinued 10 MG PO Daily October 13, 2021 12:00am [...] 6:36pm benztropine mesylate 0.5 mg oral tablet (8 sources) Anticholinergic, Antihistamine Start: 12-15-2022 take 1 tablet by mouth twice daily Benztropine 0.5 mg Tablet Active 0.5 MG PO Twice daily December 15, 2022 12:00am ciprofloxacin 500 mg oral tablet (20 sources) Quinolone Antimicrobial Start: 06-02-2024 Cipro 500 mg Tab See Instructions, 1 tab po night prior to cysto. 1 tab po following cysto., # 2 tab(s), Refills(s) 0, Pharmacy: [facility]/pharmacy #[id number], 167, cm, 04/28/23 10:12:00 EST, Height/Length Dosing, 111, kg, 04/28/23 10:12:00 EST, Weight Dosing Start Date: 06/02/24 Status: Ordered Start: 03-03-2019 End: 03-05-2019 take [id number] mg by mouth every twelve hours Ciprofloxacin [...] 15 MG PO Daily at bedtime December 15, 2022 12:00am Start: 12-09-2021 End: 12-11-2022 take 1 tablet [...] MG PO Daily at bedtime 14 October 13, 2021 12:00am November 01, 2021 [...] 10:24am warfarin sodium 5 mg oral tablet (4 sources) Vitamin K Antagonist Start: 06-10-2024 take 1 tablet by mouth once daily Warfarin 5 mg tablet Active 5 MG PO Daily June 10, 2024 1:00am Completed/Discontinued Medications Medication Drug Class(es) Dates Sig (Normalized) Sig (Original) acetaminophen 500 mg oral tablet (14 sources) Start: 08-13-2022 End: 09-03-2022 take 2 [...] 2 December 13, 2020 June 14, 2021 11:35am [...] twice daily. apixaban 5 mg oral tablet (9 sources) Factor Xa Inhibitor Start: 4 End: 4 take 1 tablet by mouth twice daily Apixaban (Eliquis) 5 mg tablet Discontinued 5 MG PO Twice daily 60 November 12, 2023 1:50pm June 10, 2024 10:39am benzocaine 200 mg/ml / menthol 5 mg/ml topical spray (12 sources) Standardized Chemical Allergen Start: 3 End: [...] Pressure Kit Med And L rg kit (4 sources) Start: 08-02-2022 End: 08-13-2022 Blood Pressure [...] procedure, # 2 cap(s), Refills(s) 0, Pharmacy: [facility]/pharmacy #[id number], 167, cm, 09/03/22 13:32:00 EDT, [...] is running. take 1 tablet by tejas twice daily cholecalciferol (VITAMIN D3) 1,000 unit tab tablet Take 1,000 Units by mouth twice daily. 0 Active Comment on above: Take 1,000 Units by mouth twice daily. cyclobenzaprine hydrochloride 10 mg oral tablet (12 sources) Muscle Relaxant Start: 08-12-19 End: 09-04-19 [...] Dexlansoprazole (Dexilant) 60 mg capsule,biphase delayed releas (5 sources) Start: 11-11-2023 End: 11-12-2023 take 1 [...] 1:29pm docusate sodium 100 mg oral capsule (12 sources) Start: 08-13-2022 End: 09-03-2022 take 1 [...] June 25, 2022 10:16pm last taken 10/09/21 Start: 12-19-2020 inject 1 mL by subcu taneous injection once erenumab (Aimovig Autoinjector) 70 mg/mL injection Inject 1 mL (70 mg) under the skin every 28 (twenty-eight) days. 12/19/2020 Active ferrous sulfate 325 mg oral tablet (20 sources) Start: 06-25-2022 End: 09-03-2022 take 1 [...] MG PO Twice daily 60 30 February 21, 2020 12:00am June 14, 2021 [...] above: Take 1 capsule by [facility] once daily. LORazepam 1 mg oral tablet [...] at bedtime. metoclopramide 10 mg oral tablet (10 sources) Dopamine-2 Receptor Antagonist Start: 11-02-19 End: 12-12-19 take 1 tablet by mouth once before mealtime Metoclopramide Hcl 10 mg Tablet Discontinued 10 MG PO 3x/Day before meals 45 15 November 01, 2022 12:00am December 11, 2022 9:36pm Modified Lanolin (Lanolin (Hpa)) 100 % Cream (12 sources) Start: 08-13-19 End: 09-04-19 Modified Lanolin [...] 2022 7:39pm naproxen 500 mg oral tablet (11 sources) Nonsteroidal Anti-inflammatory Drug Start: 10-18-2022 End: [...] 2019 1:00am February 18, 2020 5:44pm Vit No.082-Uhkz-Evxkk ( Vitamin) 27 mg iron- 800 mcg Tablet (20 sources) Start: 12-11-2021 End: 09-03-2022 take 1 tablet by mouth once daily Vit No.064-Sepn-Fwnmp ( Vitamin) 27 mg iron- 800 mcg Tablet Discontinued 1 TAB PO Daily December 10, 2021 11:00pm September 03, 2022 6:39pm Start: 12-11-2021 End: 09-03-2022 take 1 tablet by mouth once daily Vit No.100-Jnng-Mseav ( Vitamin) 27 mg iron- 800 mcg Tablet Discontinued 1 TAB PO Daily December 11, 2021 12:00am September 03, 2022 7:39pm Start: 12-11-2021 take 1 tablet by tejas th once daily Vit No.444-Ovbv-Vewth ( Vitamin) 27 mg iron- 800 mcg Tablet Active 1 TAB PO Daily December 10, 2021 11:00pm Start: 12-11-2021 take 1 tablet by tejas th once daily Vit No.084-Dcfh-Orfhx ( Vitamin) 27 mg iron- 800 mcg [...] 12.5 mg supposi tory Discontinued 12.5 MG VT Q6H as needed for Nausea And Vomiting [...] needed. pyridostigmine bromide 60 mg oral tablet (5 sources) Start: 11-11-19 End: 11-12-19 take 1 tablet by mouth twice daily Pyridostigmine Onward 60 mg tablet Discontinued 1 TAB PO Twice daily November 11, 2023 12:00am November 12, 2023 1:31pm FreeTextSi tablet Orally bid; Note: Source Status: Taking; Refills: 4; Qty: 180 Tablet; Provider: Courtney Tabor ( ) rimegepant 75 mg disintegrating oral tablet (20 sources) Start: 03-30-20 End: 06-14-20 take 1 [...] Provider: Courtney Brewer Sucralfate 100 mg/mL suspension (4 sources) Start: 11-11-19 End: 11-12-19 take 10 [...] Courtney Brewer terconazole 80 mg vaginal insert (20 sources) Azole Antifungal Start: 06-26-2022 End: 07-15-2022 [...] 11:35am witch marv 500 mg/ml medicated pad (12 sources) Start: 08-13-2022 End: 09-03-2022 Glycerin-Witch Marv [...] specified cardiac dysrhythmias] Onset: 3 12-13-2020 Episodic Complication of device; implant or graft (1 source) Other mechanical complication of infusion catheter, initial encounter; 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: [Other mechanical complication of infusion catheter, initial encounter] Onset: 5 Episodic Complications of surgical procedures or medical [...] 9 11-23-2018 Episodic Nervous system congenital anomalies (4 sources) Chiari malformation 12-13-2020 Chronic Nonspecific chest [...] 4 Episodic Other aftercare (1 source) Other cardiac sonographer (current) drug therapy; 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: [OTH SIGNAL WIRER CURRENT DRUG THERAPY] Onset: 3 Episodic Other aftercare (1 source) Long-term current use of anticoagulant; 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: [[facility] (current) use of anticoagulants] Onset: 4 Episodic Other circulatory disease (1 source) Device in situ; 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: [Presence of other vascular implants and grafts] 11-01-2024 Chronic Other circulatory disease (1 source) Presence of other vascular implants and grafts; 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: [Other postprocedural status] 11-07-2024 Chronic Other complications of (4 sources) Advanced maternal age 12-10-2021 Episodic Other [...] Onset: 4 06-17-2021 Chronic Other gastrointestinal disorders (4 sources) History of intubation of gastrointestinal tract [...] unspecified side] 08-31-2021 Episodic Pulmonary heart disease (5 sources) Other pulmonary embolism without acute cor [...] Test Name Value Interpretation Reference Range Facility Basic Metabolic Panelon 05-2 Anion gap [Moles/Vol] 10.7 mmol/L Normal 6.0-15.0 [facility] Comment on above: Performed By: #### B MP, PT, PTT #### [facility] [address] [place] [address] [place] Calcium [Mass/Vol] 8.8 mg/dL Normal 8.6-10.3 [facility] Comment on above: Performed By: #### B MP, PT, PTT #### [facility] [address] [place] [address] [place] Chloride [Moles/Vol] 106 mmol/L Normal 98-107 [facility] Comment on above: Performed By: #### B MP, PT, PTT #### [facility] [address] [place] [address] [place] CO2 [Moles/Vol] 24.9 mmol/L Normal 21.0-31.0 [facility] Comment on above: Performed By: #### B MP, PT, PTT #### [facility] [address] [place] [address] [place] Creatinine [Mass/Vol] 0.92 mg/dL Normal 0.60-1.20 [facility] Comment on above: Performed By: #### B MP, PT, PTT #### [facility] [address] [place] [address] [place] Creatinine Clr Calc Pharmacy 104.07 Normal [facility] Comment on above: Result Comment: PERF ORMED BY: [place] [address] PATHOLOGIST BREEDING TECHNICIAN KANDACE CANTU M.D. Performed By: #### B MP, PT, PTT #### [facility] [address] [place] [address] [place] GFR/1.73 sq M.predicted MDRD (S/P/Bld) [Vol rate/Area] mL/min/{1.73_m2} Normal [facility] Comment on above: Performed By: #### B MP, PT, PTT #### [facility] [address] Glucose [Mass/Vol] 99 mg/dL Normal 70-100 [facility] Comment on above: Result Comment: [place] Glucose Reference Range is dependent on time and content of last meal. Glucose of more than 200 mg/dL in a nonstressed, ambulatory subject supports the diagnosis of Diabetes Mellitus. ADA recommended reference range Performed By: #### B MP, PT, PTT #### [facility] [address] Potassium [Moles/Vol] 3.6 mmol/L Normal 3.5-5.1 [facility] Comment on above: Performed By: #### B MP, PT, PTT #### [facility] [address] [place] [address] [place] Sodium [Moles/Vol] 138 mmol/L Normal 136-145 [facility] Comment on above: Performed By: #### B MP, PT, PTT #### [facility] [address] Urea nitrogen [Mass/Vol] 11 mg/dL Normal 7-25 [facility] Comment on above: Performed By: #### B MP, PT, PTT #### [facility] [address] [place] [address] [place] Basophils Auto (Bld) [#/Vol] Ordered By: Franc Barlow on 11-17-2024 Basophils (Bld) [#/Vol] Automated basophil count 0.0-0.2 [facility] Basophils/100 WBC Auto (Bld) Ordered By: Franc Barlow on 11-17-2024 Basophils/100 WBC (Bld) Automated basophil % . [facility] Calcium [Mass/volume] in Ser um or PlasmaOrdered By: Franc Barlow on 11-17-2024 Calcium [Mass/Vol] Calcium [Mass/volume ] in Serum or Plasma 8.6-10.3 [facility] Carbon dioxide, total [Moles /volume] in Serum or PlasmaOrdered By: Franc Barlow on 11-17-2024 CO2 [Moles/Vol] Carbon dioxide, tota l [Moles/volume] in Serum or Plasma 21.0-31.0 [facility] Chloride [Moles/volume] in S mac or PlasmaOrdered By: Franc Barlow on 11-17-2024 Chloride [Moles/Vol] Chloride [Moles/vol ume] in Serum or Plasma 98-107 [facility] Complete Blood Count Auto Di ffon 11-17-2024 Basophils (Bld) [#/Vol] 0.1 10*3/uL Normal 0.0-0.2 [facility] Comment on above: Result Comment: PERF ORMED BY: [place] [address] PATHOLOGIST BREEDING TECHNICIAN KANADCE CANTU M.D. Performed By: #### C BC #### [address] Basophils/100 WBC (Bld) 1.4 % Normal . [facility] Comment on above: Performed By: #### C BC #### [place] [address] [place] Eosinophils (Bld) [#/Vol] 0.1 10*3/uL Normal 0.0-0.45 [facility] Comment on above: Performed By: #### C BC #### [address] Eosinophils/100 WBC (Bld) 2.4 % Normal . [facility] Comment on above: Performed By: #### C BC #### [address] Erythrocyte distribution width (RBC) [Ratio] 13.7 % Normal 11.9-15.3 [facility] Comment on above: Performed By: #### C BC #### [address] Hematocrit (Bld) [Volume fraction] 40.0 % Normal 34.0-46.4 [facility] Comment on above: Performed By: #### C BC #### [address] Hemoglobin (Bld) [Mass/Vol] 14.0 g/dL Normal 11.8-15.4 [facility] Comment on above: Performed By: #### C BC #### [address] Lymphocytes (Bld) [#/Vol] 1.2 10*3/uL Normal 1.00-4.8 [facility] Comment on above: Performed By: #### C BC #### [address] Lymphocytes/100 WBC (Bld) 30.9 % Normal . [facility] Comment on above: Performed By: #### C BC #### [address] MCH (RBC) [Entitic mass] 34.4 pg High 24.7-34.3 [facility] Comment on above: Performed By: #### C BC #### [address] MCV (RBC) [Entitic vol] 98.0 fL Normal 80-100 [facility] Comment on above: Performed By: #### C BC #### [address] Mean Corpuscular HGB Conc 35.1 g/dL High 32.0-35.0 [facility] Comment on above: Performed By: #### C BC #### [address] Monocytes (Bld) [#/Vol] 0.5 10*3/uL Normal 0.0-0.8 [facility] Comment on above: Performed By: #### C BC #### [address] Monocytes/100 WBC (Bld) 12.7 % Normal . [facility] Comment on above: Performed By: #### C BC #### [address] [place] [address] [place] Neutrophils (Bld) [#/Vol] 2.1 10*3/uL Normal 1.8-7.7 [facility] Comment on above: Performed By: #### C BC #### [address] Neutrophils/100 WBC (Bld) 52.6 % Normal . [facility] Comment on above: Performed By: #### C BC #### [address] NRBC% 0.1 /100{WBC} Normal 0-0.5 [facility] Comment on above: Performed By: #### C BC #### [address] Platelet mean volume (Bld) [Entitic vol] 7.0 fL Normal 6.3-10.7 [facility] Comment on above: Performed By: #### C BC #### [address] Platelets (Bld) [#/Vol] 199 10*3/uL Normal 150-450 [facility] Comment on above: Performed By: #### C BC #### [address] RBC (Bld) [#/Vol] 4.08 10*6/uL Normal 3.60-5.00 [facility] Comment on above: Performed By: #### C BC #### [address] WBC (Bld) [#/Vol] 3.9 10*3/uL Normal 3.8-11.6 [facility] Comment on above: Performed By: #### C BC #### [address] Creatinine [Mass/volume] in Serum or PlasmaOrdered By: Franc Barlow on 11-17-2024 Creatinine [Mass/Vol] Creatinine [Mass/v olume] in Serum or Plasma 0.60-1.20 [facility] ECG 12 lead ECGon 11-17-2024 ECG 12 lead ECG [facility] [place] [address] [place] [address] Electrocardiograph Report Signed Patient: Maricarmen Anderson MR#: [id number] : 1980 Acct:[id number] Age/Sex: 44 / F ADM Date: 11/17/24 Loc: [place] Room: Type: [facility] Attending Dr: Gaurav Oliver MD Ordering Provider: Franc Barlow MD Date of Service: 11/17/24 ECG/ECG 12 lead ECG: preop Copies to: Test Reason : Blood Pressure : */* mmHG Vent. Rate : 84 BPM Atrial Rate : 84 BPM P-R Int : 192 ms QRS Dur : 92 ms QT Int : 362 ms P-R-T Axes : 48 -20 49 degrees QTcB Int : 427 ms Sinus rhythm with premature atrial complexes Low voltage QRS Septal infarct , age undetermined Possible Lateral infarct , age undetermined Abnormal ECG When compared with ECG of 12-Dec-2022 08:06, Sinus rhythm has replaced Electronic atrial pacemaker Septal infarct is now present Borderline criteria for Lateral infarct are now present Confirmed by Palomo Manzo ([id number]) on 11/17/2024 7:13:41 PM Referred By: Electronically Signed By: Palomo Manzo Transcribed By: MUS Signed By Palomo Manzo MD 11/17/241912 Normal [facility] Eosinophils Auto (Bld) [#/Vo l]Ordered By: Franc Barlow on 11-17-2024 Eosinophils (Bld) [#/Vol] Automated eosinophil count 0.0-0.45 [facility] Eosinophils/100 WBC Auto (Bl d)Ordered By: Franc Barlow on 11-17-2024 Eosinophils/100 WBC (Bld) Automated eosinophil % . [facility] Erythrocyte distribution wid th Auto (RBC) [Ratio]Ordered By: Franc Barlow on 11-17-2024 Erythrocyte distribution width (RBC) [Ratio] Erythrocyte distribution width [Ratio] by Automated count 11.9-15.3 [facility] Glucose [Mass/volume] in Ser um or PlasmaOrdered By: Franc Barlow on 11-17-2024 Glucose [Mass/Vol] Glucose [Mass/volume ] in Serum or Plasma 70-100 [facility] Comment on above: ADA recommended refe rence rangeRandom Glucose Reference Range is dependent on time and content of last meal. Glucose of more than 200 mg/dL in a nonstressed, ambulatory subject supports the diagnosis of Diabetes Mellitus. HCG ( test) IA.karliei d Ql (U)Ordered By: Franc Barlow on 11-17-2024 HCG ( test) Ql (U) Urine human chorionic gonadotropin (hCG) detection by immunoassay [facility] HCG,Urineon 11-17-2024 Beta HCG ( test) Ql (U) Negative Normal [facility] Comment on above: Result Comment: PERF ORMED BY: [place] [address] PATHOLOGIST BREEDING TECHNICIAN KANDACE CANTU M.D. Performed By: #### U HCG #### [address] Hematocrit Auto (Bld) [Volum e fraction]Ordered By: Franc Barlow on 11-17-2024 Hematocrit (Bld) [Volume fraction] Hematocrit [Volume Fraction] of Blood by Automated count 34.0-46.4 [facility] Hemoglobin [Mass/volume] in BloodOrdered By: Franc Barlow on 11-17-2024 Hemoglobin (Bld) [Mass/Vol] Hemoglobin [Mass/volume] in Blood 11.8-15.4 [facility] INR in Platelet poor plasma by Coagulation assayOrdered By: Franc Barlow on 11-17-2024 INR Coag (PPP) [Relative time] INR in Platelet poor plasma by Coagulation assay [facility] Comment on above: INR Therapeutic Rang [...] with mechanical heart valves: 3 - 4.5 Roni 11-17-2024 L ----- Specimen: [id number] Received: 11/17/24 Status: ABRAM Ruddy Num: [id number] Spec Type: Surgical Subm Dr: Gaurav Oliver MD Tissues: A Gross Only (INFUSAPORT) Procedures: Level 1 Gross Age/ Patient Sex Location Account Attending Physician Maricarmen Anderson 44/F [place] [id number] Gaurav Oliver MD SPEC NUM: [id number] RECD: 11/17/24 STATUS: ABRAM RUDDY NUM: [id number] ALEN: 11/17/[address]: Gaurav Oliver MD ENTERED: 11/17/24 BENJY MESSINA: SPEC TYPE: Surgical DEPT: S ENTERED BY: [id number] RECV BY: [id number] ORDERED: Level 1 Gross ORDERED: Level 1 Gross Pathological Diagnosis Replacement removal of the nonfunctioning bilingual medical receptionist: -An Intact piece of Aaytmr-n-Aukx. Gross only examination Clinical Information Nonfunctioning Kjjrwl-r-Osqi Gross Description Part A is received fresh labeled with the patients name, date of , and Qbbvrh-r-Slyf is a white, plastic like disc, 2.2 cm in diameter by 1.1 cm in thickness. 1 surface of the specimen displays a rubbery, translucent, somewhat depressible center, 0.9 cm in diameter that is engraved CT . The opposing surface of the specimen is engraved PORT-A-CATH [id number] . Extending from the disc is a cylindrical segment of white rubbery tubing, 25 cm in length by 0.3 cm in diameter that is engraved with the numerals 10 and 20. GROSS ONLY- Gross photographs are taken Specimen: [id number] Received: 11/17/24 Status: ABRAM Ruddy Num: [id number] Spec Type: Surgical Subm Dr: Gaurav Oliver MD Tissues: A Gross Only (INFUSAPORT) Procedures: Level 1 Gross Patient: SvenlizMaricarmen [id number] (Continued) Specimen: [id number] Received: 11/17/24 (Continued) Signed (signature on file) Jose Rivers MD 11/18/24 1421 Specimen: [id number] Received: 11/17/24 Status: ABRAM Ruddy Num: [id number] Spec Type: Surgical Subm Dr: Gaurav Oliver MD Tissues: A Gross Only (INFUSAPORT) Procedures: Level 1 Gross Patient: Maricarmen Anderson [id number] (Continued) Specimen: [id number] Received: 11/17/24 (Continued) Microscopic Description Not provided CPT Codes 92428 GROSS PHOTO GROSS PHOTO Specimen: [id number] Received: 11/17/24 Status: ABRAM Millercandi Num: [id number] Spec Type: Surgical Subm Dr: Gaurav Oliver MD Tissues: A Gross Only (INFUSAPORT) Procedures: Level 1 Gross Patient: Maricarmen Anderson [id number] (Continued) Signed (signature on file) Jose Rivers MD 11/18/24 0450 Normal [facility] Leukocytes [#/volume] correc nneka for nucleated erythrocytes in Blood by Automated counOrdered By: Franc Barlow on 11-17-2024 WBC corrected for nucl RBC Auto (Bld) [#/Vol] Leukocytes [#/volume] corrected for nucleated erythrocytes in Blood by Automated coun 3.8-11.6 [facility] Lymphocytes Auto (Bld) [#/Vo l]Ordered By: Franc Barlow on 11-17-2024 Lymphocytes (Bld) [#/Vol] Lymphocytes [#/volume] in Blood by Automated count 1.00-4.8 [facility] Lymphocytes/100 WBC Auto (Bl d)Ordered By: Franc Barlow on 11-17-2024 Lymphocytes/100 WBC (Bld) Lymphocytes/100 leukocytes in Blood by Automated count . [facility] MCH Auto (RBC) [Entitic mass ]Ordered By: Franc Barlow on 11-17-2024 MCH (RBC) [Entitic mass] MCH [Entitic mass] by Automated count High 24.7-34.3 [facility] MCHC Auto (RBC) [Mass/Vol]Or dered By: Franc Barlow on 11-17-2024 MCHC (RBC) [Mass/Vol] MCHC [Mass/volume] by Automated count High 32.0-35.0 [facility] MCV Auto (RBC) [Entitic vol] Ordered By: Franc Barlow on 11-17-2024 MCV (RBC) [Entitic vol] MCV [Entitic volume] by Automated count 80-100 [facility] Monocytes Auto (Bld) [#/Vol] Ordered By: Franc Barlow on 11-17-2024 Monocytes (Bld) [#/Vol] Automated blood monocyte count 0.0-0.8 [facility] Monocytes/100 WBC Auto (Bld) Ordered By: Franc Barlow on 11-17-2024 Monocytes/100 WBC (Bld) Automated monocyte % . [facility] Neutrophils Auto (Bld) [#/Vo l]Ordered By: Franc Barlow on 11-17-2024 Neutrophils (Bld) [#/Vol] Neutrophils [#/volume] in Blood by Automated count 1.8-7.7 [facility] Neutrophils/100 WBC Auto (Bl d)Ordered By: Franc Barlow on 11-17-2024 Neutrophils/100 WBC (Bld) Automated neutrophil % . [facility] No Panel InformationOrdered By: Franc Barlow on 11-17-2024 Estimated GFR (CKD-EPI) > 60.0 mL/Min [facility] Creatinine Clearance (Chem 104.07 [facility] Nucleated erythrocytes [Pres ence] in Blood by Automated countOrdered By: Franc Barlow on 11-17-2024 Nucleated RBC Auto Ql (Bld) Nucleated erythrocytes [Presence] in Blood by Automated count 0-0.5 [facility] Partial Thromboplastin Timeo n 11-17-2024 aPTT Coag (Bld) [Time] 25.8 s Normal 25.1-36.5 [facility] Comment on above: Result Comment: A he matocrit value greater than 55% may lead to inaccurate results in coagulation testing. Patients having hematocrit values >55% require a special collection tube for coagulation studies. Please contact the laboratory at [phone] for redraw instructions. PERFORMED BY: [place] [address] PATHOLOGIST BREEDING TECHNICIAN KANDACE CANTU M.D. Performed By: #### B MP, PT, PTT #### [address] Platelet mean volume Auto (B ld) [Entitic vol]Ordered By: Franc Barlow on 11-17-2024 Platelet mean volume (Bld) [Entitic vol] Platelet mean volume [Entitic volume] in Blood by Automated count 6.3-10.7 [facility] Platelets Auto (Bld) [#/Vol] Ordered By: Franc Barlow on 11-17-2024 Platelets (Bld) [#/Vol] Platelets [#/volume] in Blood by Automated count 150-450 [facility] Potassium [Moles/volume] in Serum or PlasmaOrdered By: Franc Barlow on 11-17-2024 Potassium [Moles/Vol] Potassium [Moles/v olume] in Serum or Plasma 3.5-5.1 [facility] Prothrombin Time INRon 11-17 INR Coag (PPP) [Relative time] 1.2 {INR} Normal [facility] Comment on above: Result Comment: INR Therapeutic Range A) Pre- and Peroperative OAT started two weeks before surgery. NOT HIP SURGERY: 1.5 - 2.5 HIP SURGERY: 2 - 3 B) Primary and secondary prevention of venous THROMBOSIS: 2 - 3 C) Active venous thrombosis, pulmonary embolism and prevention of recurrent venous thrombosis: 2 - 3 D) Prevention of arterial thromboembolism including patients with mechanical heart valves: 3 - 4.5 Performed By: #### B MP, PT, PTT #### [facility] [address] [id number] [facility] PT Coag (PPP) [Time] 13.1 s High 9.0-12.9 [facility] Comment on above: Result Comment: A he matocrit value greater than 55% may lead to inaccurate results in coagulation testing. Patients having hematocrit values >55% require a special collection tube for coagulation studies. Please contact the laboratory at [phone] for redraw instructions. Performed By: #### B MP, PT, PTT #### [facility] [address] [id number] [facility] Prothrombin time (PT)Ordered By: Franc Barlow on 11-17-2024 PT Coag (PPP) [Time] Prothrombin time (PT) High 9.0- 12.9 [facility] Comment on above: A hematocrit value g reater than 55% may lead to inaccurate results in coagulation testing. Patients having hematocrit values >55% require a special collection tube for coagulation studies. Please contact the laboratory at [phone] for redraw instructions. RBC Auto (Bld) [#/Vol]Ordere d By: Franc Barlow on 11-17-2024 RBC (Bld) [#/Vol] Erythrocytes [#/volu me] in Blood by Automated count 3.60-5.00 [facility] Serum or plasma anion gap de terminationOrdered By: Franc Barlow on 11-17-2024 Anion gap [Moles/Vol] Serum or plasma an ion gap determination 6.0-15.0 [facility] Sodium [Moles/volume] in Ser um or PlasmaOrdered By: Franc Barlow on 11-17-2024 Sodium [Moles/Vol] Sodium [Moles/volume ] in Serum or Plasma 136-145 [facility] Urea nitrogen [Mass/volume] in Serum or PlasmaOrdered By: Franc Barlow on 11-17-2024 Urea nitrogen [Mass/Vol] Urea nitrogen [Mass/volume] in Serum or Plasma 01-13 [facility] WBC Auto (Bld) [#/Vol]Ordere d By: Franc Barlow on 11-17-2024 WBC (Bld) [#/Vol] Leukocytes [#/volume ] in Blood by Automated count 3.8-11.6 [facility] X-ray reportOrdered By: Adam Escamilla on 11-17-2024 Study report [facility] [place] [address] [place] [address] XRay Report Signed Patient: Maricarmen Anderson MR#: [id number] : 1980 Acct:[id number] Age/Sex: 44 / F ADM Date: 5 Loc: [place] Room: Type: [facility] Attending Dr: Gaurav Oliver MD Copies to: Gaurav Oliver MD~ Ordering Provider: Gaurav Oliver MD Date of Service: 11/17/24 XR/XR chest 1V portable: POST INFUSAPORT EXCHANGE RIGHT SIDE XR chest 1V portable 11/17/2024 1:04 PM SIGNS AND SYMPTOMS: ^POST INFUSAPORT EXCHANGE RIGHT SIDE PROTOCOL: Frontal radiograph the chest COMPARISON: 12/19/2022 FINDINGS: The trachea is midline. There is a new right-sided Zrpnsi-f-Myww is present with the tip in the superior vena cava. There is no pneumothorax. There is a dual lead pacer device on the left. The heart and mediastinal structures are within normal limits. The lung parenchyma is clear. The bony thorax is intact. XR/XR chest 1V portable IMPRESSION: There is a new right-sided Ttyzdt-a-Mjrr is present with the tip in the superiorvena cava. There is no pneumothorax. Impression dictated by: Adam Escamilla M.D. 11/17/2024 1:19 PM Dictation Location: [place] [address] Transcribed By: RAFA 11/17/24 1319 Dictated By: Adam Escamilla II, MD 11/17/24 1317 Signed By: 11/17/24 1319 [facility] Work Phone: XR chest 1V portableon 11-17 XR chest 1V portable [facility] [place] [address] [place] [id number] XRay Report Signed Patient: Maricarmen Anderson MR#: [id number] : 1980 Acct:[id number] Age/Sex: 44 / F ADM Date: 11/17/24 Loc: [place] Room: Type: [facility] Attending Dr: Gaurav Oliver MD Copies to: Gaurav Oliver MD Ordering Provider: Gaurav Oliver MD Date of Service: 11/17/24 XR/XR chest 1V portable: POST INFUSAPORT EXCHANGE RIGHT SIDE XR chest 1V portable 11/17/2024 1:04 PM SIGNS AND SYMPTOMS: POST INFUSAPORT EXCHANGE RIGHT SIDE PROTOCOL: Frontal radiograph the chest COMPARISON: 12/19/2022 FINDINGS: The trachea is midline. There is a new right-sided Eirjdd-u-Oviz is present with the tip in the superior vena cava. There is no pneumothorax. There is a dual lead pacer device on the left. The heart and mediastinal structures are within normal limits. The lung parenchyma is clear. The bony thorax is intact. XR/XR chest 1V portable IMPRESSION: There is a new right-sided Rwicwe-d-Qffs is present with the tip in the superior vena cava. There is no pneumothorax. Impression dictated by: Adam Escamilla M.D. 11/17/2024 1:19 PM Dictation Location: [place] [address] Transcribed By: [facility] 11/17/24 1319 Dictated By: Adam Escamilla II, MD 11/17/241316 Signed By: 11/17/24 131 Normal [facility] aPTT in Platelet poor plasma by Coagulation assayOrdered By: Franc Barlow on 11-17-2024 aPTT Coag (PPP) [Time] Activated partial thromboplastin time (aPTT) in platelet poor plasma by coagulation a 25.1-36.5 [facility] Comment on above: A hematocrit value g reater than 55% may lead to inaccurate results in coagulation testing. Patients having hematocrit values >55% require a special collection tube for coagulation studies. Please contact the laboratory at [phone] for redraw instructions. Basophils Auto (Bld) [#/Vol] on 10-31-2024 Basophils (Bld) [#/Vol] Automated basophil count 0.0-0.1 [facility] Basophils/100 WBC Auto (Bld) on 10-31-2024 Basophils/100 WBC (Bld) Automated basophil % 0.2-2.0 [facility] Eosinophils/100 WBC Auto (Bl d)on 10-31-2024 Eosinophils/100 WBC (Bld) Automated eosinophil % Low 0.9-7.0 [facility] Erythrocyte distribution wid th Auto (RBC) [Ratio]on 10-31-2024 Erythrocyte distribution width (RBC) [Ratio] Erythrocyte distribution width [Ratio] by Automated count 11.0-15.0 [facility] Estimated glomerular filtrat ion rate (GFR) non- Americanon 10-31-2024 GFR/1.73 sq M.predicted among non-blacks MDRD (S/P/Bld) [Vol rate/Area] Estimated glomerular filtration rate (GFR) non- Low >=60 mL/min/1.73 m 2 [facility] Hematocrit Auto (Bld) [Volum e fraction]on 10-31-2024 Hematocrit (Bld) [Volume fraction] Hematocrit [Volume Fraction] of Blood by Automated count 36.0-48.0 [facility] Hemoglobin [Mass/volume] in Bloodon 10-31-2024 Hemoglobin (Bld) [Mass/Vol] Hemoglobin [Mass/volume] in Blood 12.0-16.0 [facility] Iron binding capacity [Mass/ volume] in Serum or Plasmaon 10-31-2024 Iron binding capacity [Mass/Vol] Iron binding capacity [Mass/volume] in Serum or Plasma 250.0-450.0 [facility] Iron saturation [Mass Fracti on] in Serum or Plasmaon 10-31-2024 Iron saturation [Mass fraction] Iron saturation [Mass Fraction] in Serum or Plasma [facility] Laboratory - Chemistry and C hemistry - challengeon 10-31-2024 Calcium [Mass/Vol] 8.8 mg/dL 8.5-10.1 [facility] Chloride [Moles/Vol] 104 mmol/L 98-107 [facility] CO2 [Moles/Vol] 28.6 mmol/L 21.0-32.0 [facility] Cobalamin (Vitamin B12) [Mass/Vol] 655 pg/mL 232-1245 [facility] Comment on above: Performed at: - [address] [id number] Director: Prabhakar Warren PhD, Phone: [phone] Creatinine [Mass/Vol] 1.06 mg/dL High 0.55-1.02 [facility] Ferritin [Mass/Vol] 136.0 ng/mL 8.0-252.0 [facility] GFR/1.73 sq M.predicted MDRD (S/P/Bld) [Vol rate/Area] mL/min/{1.73_m2} >=60 mL/min/1.73 m 2 [facility] Glucose [Mass/Vol] 132 mg/dL High 74-106 [facility] Iron [Mass/Vol] 59.0 ug/dL 50.0-170.0 [facility] Potassium [Moles/Vol] 3.3 mmol/L Low 3.5-5.1 [facility] Sodium [Moles/Vol] 137 mmol/L 136-145 [facility] Urea nitrogen [Mass/Vol] 8.0 mg/dL 7.0-18.0 [facility] Urea nitrogen/Creatinine [Mass ratio] 7.5 mg/mg [facility] Laboratory - Hematology and Cell countson 10-31-2024 Immature granulocytes/100 WBC (Bld) 0.0 % 0.0-0.5 [facility] Leukocytes [#/volume] correc nneka for nucleated erythrocytes in Blood by Automated counon 10-31-2024 WBC corrected for nucl RBC Auto (Bld) [#/Vol] Leukocytes [#/volume] corrected for nucleated erythrocytes in Blood by Automated coun Low 4.0-11.0 [facility] Lymphocytes Auto (Bld) [#/Vo l]on 10-31-2024 Lymphocytes (Bld) [#/Vol] Lymphocytes [#/volume] in Blood by Automated count Low 1.2-3.8 [facility] Lymphocytes/100 WBC Auto (Bl d)on 10-31-2024 Lymphocytes/100 WBC (Bld) Lymphocytes/100 leukocytes in Blood by Automated count 20.5-60.0 [facility] MCH Auto (RBC) [Entitic mass ]on 10-31-2024 MCH (RBC) [Entitic mass] MCH [Entitic mass] by Automated count 26.7-34.0 [facility] MCHC Auto (RBC) [Mass/Vol]on 10-31-2024 MCHC (RBC) [Mass/Vol] MCHC [Mass/volume] by Automated count 29.9-35.2 [facility] MCV Auto (RBC) [Entitic vol] on 10-31-2024 MCV (RBC) [Entitic vol] MCV [Entitic volume] by Automated count High 81.0-99.0 [facility] Monocytes Auto (Bld) [#/Vol] on 10-31-2024 Monocytes (Bld) [#/Vol] Automated blood monocyte count 0.3-0.8 [facility] Monocytes/100 WBC Auto (Bld) on 10-31-2024 Monocytes/100 WBC (Bld) Automated monocyte % High 1.7-12.0 [facility] Neutrophils Auto (Bld) [#/Vo l]on 10-31-2024 Neutrophils (Bld) [#/Vol] Neutrophils [#/volume] in Blood by Automated count Low 1.4-6.5 [facility] Neutrophils/100 WBC Auto (Bl d)on 10-31-2024 Neutrophils/100 WBC (Bld) Automated neutrophil % 43.0-75.0 [facility] No Panel Informationon 10-31 25-Hydroxy Vitamin D Total 39.3 ng/mL [facility] Comment on above: <20 ng/mL Vit D defi cient20-<30 ng/mL Vit D hyltfpsfjgwv69-656 ng/mL Vit D sufficient>100 ng/mL Potential Toxicity Eosinophils # (Auto) 0.0 10 3/uL 0.0-0.7 [facility] Immature Granulocyte # (Auto) 0.00 10 3/uL 0.00-0.03 [facility] Platelet mean volume Auto (B ld) [Entitic vol]on 10-31-2024 Platelet mean volume (Bld) [Entitic vol] Platelet mean volume [Entitic volume] in Blood by Automated count 9.5-13.5 [facility] Platelets Auto (Bld) [#/Vol] on 10-31-2024 Platelets (Bld) [#/Vol] Platelets [#/volume] in Blood by Automated count Low 150-450 [facility] RBC Auto (Bld) [#/Vol]on RBC (Bld) [#/Vol] Erythrocytes [#/volu me] in Blood by Automated count Low 4.20-5.40 [facility] Serum or plasma anion gap de terminationon 10-31-2024 Anion gap [Moles/Vol] Serum or plasma an ion gap determination [facility] INR in Platelet poor plasma by Coagulation assayon 09-26-2024 INR Coag (PPP) [Relative time] INR in Platelet poor plasma by Coagulation assay [facility] Comment on above: DESIRED INR:2.0-3.0 CONDITIONS NOT LISTED BELOW2.5-3.5 FOR PROSTHETIC HEART VALVE REPLACEMENT2.5-3.5 RECURRENT THROMBOSIS No Panel Informationon 09-26 Human Chorionic Gonadotropin, Qual Negative NEGATIVE [facility] Prothrombin time (PT)on PT Coag (PPP) [Time] Prothrombin time (PT) High 9.0- 11.6 [facility] MR cervical spine wo conon 0 08-31-2024 MR cervical spine wo con [facility] [place] [address] MRI Report Signed Patient: Maricarmen Anderson MR#: [id number] : 1980 Acct:[id number] Age/Sex: 43 / F ADM Date: 08/31/24 Loc: MR Room: Type: [facility] Attending Dr: Tete Snell MD Copies to: [...] Praful Manley M.D.08/31/2024 10:20 AM Dictation Location: [place] [address] Transcribed By: [facility] 08/31/24 1020 Dictated By: Praful Manley MD 08/31/24 0947 Signed By: 08/31/24 1020 Normal [facility] Magnetic resonance imaging r eportOrdered By: Praful Manley on 08-31-2024 Study report [facility] [place] [address] MRI Report Signed Patient: Maricarmen Anderson MR#: [id number] : 1980 Acct:[id number] Age/Sex: 43 / F ADM Date: 5 Loc: MR Room: Type: [facility] Attending Dr: Tete Snell MD Copies [...] Praful Manley M.D.08/31/2024 10:20 AM Dictation Location: [place] [address] Transcribed By: [facility] 08/31/24 1020 Dictated By: Praful Manley MD 08/31/24 0947 Signed By: 08/31/24 1020 [facility] Work Phone: INR in Platelet poor plasma by Coagulation assayon 07-11-2024 INR Coag (PPP) [Relative time] INR in Platelet poor plasma by Coagulation assay [facility] Comment on above: DESIRED INR:2.0-3.0 CONDITIONS NOT LISTED BELOW2.5-3.5 FOR PROSTHETIC HEART VALVE REPLACEMENT2.5-3.5 RECURRENT THROMBOSIS No Panel Informationon 07-11 Human Chorionic Gonadotropin, Qual Negative NEGATIVE [facility] Prothrombin time (PT)on 06-23 PT Coag (PPP) [Time] Prothrombin time (PT) 9.0- 11.6 [facility] Basophils Auto (Bld) [#/Vol] on 07-05-2024 Basophils (Bld) [#/Vol] Automated basophil count 0.0-0.1 [facility] Basophils/100 WBC Auto (Bld) on 07-05-2024 Basophils/100 WBC (Bld) Automated basophil % 0.2-2.0 [facility] Eosinophils/100 WBC Auto (Bl d)on 07-05-2024 Eosinophils/100 WBC (Bld) Automated eosinophil % 0.9-7.0 [facility] Erythrocyte distribution wid th Auto (RBC) [Ratio]on 07-05-2024 Erythrocyte distribution width (RBC) [Ratio] Erythrocyte distribution width [Ratio] by Automated count 11.0-15.0 [facility] Estimated glomerular filtrat ion rate (GFR) non- Americanon 07-05-2024 GFR/1.73 sq M.predicted among non-blacks MDRD (S/P/Bld) [Vol rate/Area] Estimated glomerular filtration rate (GFR) non- >=60 mL/min/1.73 m 2 [facility] Hematocrit Auto (Bld) [Volum e fraction]on 07-05-2024 Hematocrit (Bld) [Volume fraction] Hematocrit [Volume Fraction] of Blood by Automated count 36.0-48.0 [facility] Hemoglobin [Mass/volume] in Bloodon 07-05-2024 Hemoglobin (Bld) [Mass/Vol] Hemoglobin [Mass/volume] in Blood 12.0-16.0 [facility] Iron binding capacity [Mass/ volume] in Serum or Plasmaon 07-05-2024 Iron binding capacity [Mass/Vol] Iron binding capacity [Mass/volume] in Serum or Plasma 250.0-450.0 [facility] Iron saturation [Mass Fracti on] in Serum or Plasmaon 07-05-2024 Iron saturation [Mass fraction] Iron saturation [Mass Fraction] in Serum or Plasma [facility] Laboratory - Chemistry and C hemistry - challengeon 07-05-2024 Calcium [Mass/Vol] 9.2 mg/dL 8.5-10.1 [facility] Chloride [Moles/Vol] 105 mmol/L 98-107 [facility] CO2 [Moles/Vol] 28.3 mmol/L 21.0-32.0 [facility] Cobalamin (Vitamin B12) [Mass/Vol] 617 pg/mL 232-1245 [facility] Comment on above: Performed at: - [address] [id number] Director: Prabhakar Warren PhD, Phone: [phone] Creatinine [Mass/Vol] 0.94 mg/dL 0.55-1.02 [facility] Ferritin [Mass/Vol] 76.0 ng/mL 8.0-252.0 [facility] GFR/1.73 sq M.predicted MDRD (S/P/Bld) [Vol rate/Area] mL/min/{1.73_m2} >=60 mL/min/1.73 m 2 [facility] Glucose [Mass/Vol] 96 mg/dL 74-106 [facility] Iron [Mass/Vol] 116.0 ug/dL 50.0-170.0 [facility] Potassium [Moles/Vol] 4.3 mmol/L 3.5-5.1 [facility] Sodium [Moles/Vol] 143 mmol/L 136-145 [facility] Urea nitrogen [Mass/Vol] 11.0 mg/dL 7.0-18.0 [facility] Urea nitrogen/Creatinine [Mass ratio] 11.7 mg/mg [facility] Laboratory - Hematology and Cell countson 07-05-2024 Immature granulocytes/100 WBC (Bld) 0.2 % 0.0-0.5 [facility] Leukocytes [#/volume] correc nneka for nucleated erythrocytes in Blood by Automated counon 07-05-2024 WBC corrected for nucl RBC Auto (Bld) [#/Vol] Leukocytes [#/volume] corrected for nucleated erythrocytes in Blood by Automated coun 4.0-11.0 [facility] Lymphocytes Auto (Bld) [#/Vo l]on 07-05-2024 Lymphocytes (Bld) [#/Vol] Lymphocytes [#/volume] in Blood by Automated count 1.2-3.8 [facility] Lymphocytes/100 WBC Auto (Bl d)on 07-05-2024 Lymphocytes/100 WBC (Bld) Lymphocytes/100 leukocytes in Blood by Automated count 20.5-60.0 [facility] MCH Auto (RBC) [Entitic mass ]on 07-05-2024 MCH (RBC) [Entitic mass] MCH [Entitic mass] by Automated count High 26.7-34.0 [facility] MCHC Auto (RBC) [Mass/Vol]on 07-05-2024 MCHC (RBC) [Mass/Vol] MCHC [Mass/volume] by Automated count 29.9-35.2 [facility] MCV Auto (RBC) [Entitic vol] on 07-05-2024 MCV (RBC) [Entitic vol] MCV [Entitic volume] by Automated count High 81.0-99.0 [facility] [place] Intraoperative Recor don 07-05-2024 Main [place] Intraoperative Record [place] Intraoperative Record IntraOp Document Type FTURO Summary Primary Physician: Michael VIVEROS MD Finalized Date/Time: 07/05/24 13:38:20 Pt. Name: MARICARMEN ANDERSON/Sex: 1980 Female Med Rec #: [id number] Physician: Michael VIVEROS MD Financial #: [id number] Pt. Type: O Room/Bed: / Admit/Disch: 07/05/24 12:41:15 - Institution: Case Times FTURO Entry 1 Patient Times In Room 07/05/24 13:26:00 Out Room 07/05/24 13:38:00 Procedure Times Start 07/05/24 13:32:00 Stop 07/05/24 13:35:00 Anesthesia Times Last Modified By: Jolie Caldwell 07/05/24 13:38:10 Case Attendance FTURO Entry 1 Entry 2 Entry 3 Case Attendee Michael VIVEROS MD, Kelsie E McClain [facility], Sheyla Role Performed Surgeon - Primary Quality Improvement Analyst - Primary Scrub - Primary Time In 07/05/24 13:26:00 01/14/25 13:26:00 07/05/24 13:26:00 Time Out 07/05/24 13:38:00 [...] Availability Equipment, Medication Time Out Michael VIVEROS MD, Verified (If Participants Jolie Caldwell, Applicable) Sheyla Gold CST Time Out Complete 07/05/24 13:31:00 Allergies Reviewed? Yes Allergies Reviewed Self/Patient With Body Position Frog Legged Prep Area VAGINA Prep Agents Betadine Solution Skin. Condition Intact, [place], Warm, & Description N/A Dry Additional None [...] 07/05/24 13:38 Jolie Caldwell 07/05/24 13:38 Normal [facility] Main OR Preoperative Recordo n 07-05-2024 Main OR Preoperative Record Main OR Preoperative Record Holding Area Document Type FTURO Summary Primary Physician: Michael VIVEROS MD Finalized Date/Time: 07/05/24 13:21:29 Pt. Name: MARICARMEN ANDERSON/Sex: 1980 Female Med Rec #: [id number] Physician: Michael VIVEROS MD Financial #: [id number] Pt. Type: O Room/Bed: / Admit/Disch: 07/05/24 [...] Complaints of Pain: No Skin Integrity Intact, [place], Warm, & Dry Vitals - EU Blood [...] 07/05/24 13:09 Jolie Caldwell 07/05/24 13:21 Normal [facility] Monocytes Auto (Bld) [#/Vol] on 07-05-2024 Monocytes (Bld) [#/Vol] Automated blood monocyte count 0.3-0.8 [facility] Monocytes/100 WBC Auto (Bld) on 07-05-2024 Monocytes/100 WBC (Bld) Automated monocyte % 1.7-12.0 [facility] Neutrophils Auto (Bld) [#/Vo l]on 07-05-2024 Neutrophils (Bld) [#/Vol] Neutrophils [#/volume] in Blood by Automated count 1.4-6.5 [facility] Neutrophils/100 WBC Auto (Bl d)on 07-05-2024 Neutrophils/100 WBC (Bld) Automated neutrophil % 43.0-75.0 [facility] No Panel Informationon 07-05 25-Hydroxy Vitamin D Total 31.2 ng/mL [facility] Comment on above: <20 ng/mL Vit D defi cient20-<30 ng/mL Vit D hewflaprwnhc96-215 ng/mL Vit D sufficient>100 ng/mL Potential Toxicity Eosinophils # (Auto) 0.1 10 3/uL 0.0-0.7 [facility] Immature Granulocyte # (Auto) 0.01 10 3/uL 0.00-0.03 [facility] Operative Reporton Operative Report Operative Report [...] up arranged. Urethra was dilated from 22-30 Setswana with Ferguson sounds. Normal [facility] Comment on above: Result Comment: Elec tronically Signed By: Michael VIVEROS MD\.br\Date and Time Signed: 07/05/24 13:40 EST Platelet mean volume Auto (B ld) [Entitic vol]on 07-05-2024 Platelet mean volume (Bld) [Entitic vol] Platelet mean volume [Entitic volume] in Blood by Automated count 9.5-13.5 [facility] Platelets Auto (Bld) [#/Vol] on 07-05-2024 Platelets (Bld) [#/Vol] Platelets [#/volume] in Blood by Automated count 150-450 [facility] RBC Auto (Bld) [#/Vol]on RBC (Bld) [#/Vol] Erythrocytes [#/volu me] in Blood by Automated count Low 4.20-5.40 [facility] Serum or plasma anion gap de terminationon 07-05-2024 Anion gap [Moles/Vol] Serum or plasma an ion gap determination [facility] CT abdomen pelvis w conon CT abdomen pelvis w con [facility] [place] [address] CT Scan Report Signed Patient: Maricarmen Anderson MR#: [id number] : 1980 Acct:[id number] Age/Sex: 43 / F ADM Date: 07/04/24 Loc: CT Room: Type: [facility] Attending Dr: Michael Viveros MD Copies to: [...] Oro Jr., D.O.07/04/2024 2:58 PM Dictation Location: RADIO-PC-19 Transcribed By: RAFA 07/04/241457 Dictated By: Mitchel Oro Jr, DO 07/04/241454 Signed By: 07/04/241457 Normal [facility] Basophils Auto (Bld) [#/Vol] on 06-02-2024 Basophils (Bld) [#/Vol] Automated basophil count 0.0-0.1 [facility] Basophils/100 WBC Auto (Bld) on 06-02-2024 Basophils/100 WBC (Bld) Automated basophil % 0.2-2.0 [facility] Cholesterol in LDL Calc [Mas s/Vol]on 06-02-2024 Cholesterol in LDL [Mass/Vol] Cholesterol in LDL [Mass/volume] in Serum or Plasma by calculation [facility] Comment on above: <100 mg/dl [id number] 0-129 mg/dl NEAR OR ABOVE [id number] mg/dl BORDERLINE [id number] mg/dl HIGH>190 mg/dl VERY HIGH Cholesterol in VLDL Calc [Ma ss/Vol]on 06-02-2024 Cholesterol in VLDL [Mass/Vol] Cholesterol in VLDL [Mass/volume] in Serum or Plasma by calculation [facility] Eosinophils/100 WBC Auto (Bl d)on 06-02-2024 Eosinophils/100 WBC (Bld) Automated eosinophil % 0.9-7.0 [facility] Erythrocyte distribution wid th Auto (RBC) [Ratio]on 06-02-2024 Erythrocyte distribution width (RBC) [Ratio] Erythrocyte distribution width [Ratio] by Automated count 11.0-15.0 [facility] Estimated glomerular filtrat ion rate (GFR) non- Americanon 06-02-2024 GFR/1.73 sq M.predicted among non-blacks MDRD (S/P/Bld) [Vol rate/Area] Estimated glomerular filtration rate (GFR) non- Low >=60 mL/min/1.73 m 2 [facility] Glucose mean value [Mass/vol ume] in Blood Estimated from glycated hemoglobinon 06-02-2024 Average glucose Estimated from glycated hemoglobin (Bld) [Mass/Vol] Glucose mean value [Mass/volume] in Blood Estimated from glycated hemoglobin [facility] Hematocrit Auto (Bld) [Volum e fraction]on 06-02-2024 Hematocrit (Bld) [Volume fraction] Hematocrit [Volume Fraction] of Blood by Automated count 36.0-48.0 [facility] Hemoglobin [Mass/volume] in Bloodon 06-02-2024 Hemoglobin (Bld) [Mass/Vol] Hemoglobin [Mass/volume] in Blood 12.0-16.0 [facility] Iron binding capacity [Mass/ volume] in Serum or Plasmaon 06-02-2024 Iron binding capacity [Mass/Vol] Iron binding capacity [Mass/volume] in Serum or Plasma 250.0-450.0 [facility] Iron saturation [Mass Fracti on] in Serum or Plasmaon 06-02-2024 Iron saturation [Mass fraction] Iron saturation [Mass Fraction] in Serum or Plasma [facility] Laboratory - Chemistry and C hemistry - challengeon 06-02-2024 Calcium [Mass/Vol] 9.1 mg/dL 8.5-10.1 [facility] Chloride [Moles/Vol] 105 mmol/L 98-107 [facility] Cholesterol [Mass/Vol] 186 mg/dL <=200 [facility] Cholesterol in HDL [Mass/Vol] 72 mg/dL High 40-60 [facility] Comment on above: > or =60 mg/dl - LOW CARDIOVASCULAR RISK<40 mg/dl - HIGH CARDIOVASCULAR RISK CO2 [Moles/Vol] 29.9 mmol/L 21.0-32.0 [facility] Cobalamin (Vitamin B12) [Mass/Vol] 241 pg/mL 232-1245 [facility] Comment on above: Performed at: [address] [id number] Director: Prabhakar Warren PhD, Phone: [phone] Creatinine [Mass/Vol] 1.16 mg/dL High 0.55-1.02 [facility] Ferritin [Mass/Vol] 78.0 ng/mL 8.0-252.0 [facility] GFR/1.73 sq M.predicted MDRD (S/P/Bld) [Vol rate/Area] mL/min/{1.73_m2} >=60 mL/min/1.73 m 2 [facility] Glucose [Mass/Vol] 101 mg/dL 74-106 [facility] Iron [Mass/Vol] 112.0 ug/dL 50.0-170.0 [facility] Potassium [Moles/Vol] 3.9 mmol/L 3.5-5.1 [facility] Sodium [Moles/Vol] 141 mmol/L 136-145 [facility] Triglyceride [Mass/Vol] 86 mg/dL <=150 [facility] Urea nitrogen [Mass/Vol] 7.0 mg/dL 7.0-18.0 [facility] Urea nitrogen/Creatinine [Mass ratio] 6.0 mg/mg [facility] Laboratory - Hematology and Cell countson 06-02-2024 HbA1c (Bld) [Mass fraction] 5.7 % 4.5-6.2 [facility] Comment on above: ADA RECOMMENDED LIMI T 4.0 - 6.0ADA THERAPEUTIC TARGET < 7.0ACTION SUGGESTED> 7.0 Immature granulocytes/100 WBC (Bld) 0.2 % 0.0-0.5 [facility] Leukocytes [#/volume] correc nneka for nucleated erythrocytes in Blood by Automated counon 06-02-2024 WBC corrected for nucl RBC Auto (Bld) [#/Vol] Leukocytes [#/volume] corrected for nucleated erythrocytes in Blood by Automated coun 4.0-11.0 [facility] Lymphocytes Auto (Bld) [#/Vo l]on 06-02-2024 Lymphocytes (Bld) [#/Vol] Lymphocytes [#/volume] in Blood by Automated count 1.2-3.8 [facility] Lymphocytes/100 WBC Auto (Bl d)on 06-02-2024 Lymphocytes/100 WBC (Bld) Lymphocytes/100 leukocytes in Blood by Automated count 20.5-60.0 [facility] MCH Auto (RBC) [Entitic mass ]on 06-02-2024 MCH (RBC) [Entitic mass] MCH [Entitic mass] by Automated count 26.7-34.0 [facility] MCHC Auto (RBC) [Mass/Vol]on 06-02-2024 MCHC (RBC) [Mass/Vol] MCHC [Mass/volume] by Automated count 29.9-35.2 [facility] MCV Auto (RBC) [Entitic vol] on 06-02-2024 MCV (RBC) [Entitic vol] MCV [Entitic volume] by Automated count 81.0-99.0 [facility] Monocytes Auto (Bld) [#/Vol] on 06-02-2024 Monocytes (Bld) [#/Vol] Automated blood monocyte count 0.3-0.8 [facility] Monocytes/100 WBC Auto (Bld) on 06-02-2024 Monocytes/100 WBC (Bld) Automated monocyte % 1.7-12.0 [facility] Neutrophils Auto (Bld) [#/Vo l]on 06-02-2024 Neutrophils (Bld) [#/Vol] Neutrophils [#/volume] in Blood by Automated count 1.4-6.5 [facility] Neutrophils/100 WBC Auto (Bl d)on 06-02-2024 Neutrophils/100 WBC (Bld) Automated neutrophil % 43.0-75.0 [facility] No Panel Informationon 06-02 25-Hydroxy Vitamin D Total 26.9 ng/mL [facility] Comment on above: <20 ng/mL Vit D defi cient20-<30 ng/mL Vit D kyrrynwykqbn55-243 ng/mL Vit D sufficient>100 ng/mL Potential Toxicity Eosinophils # (Auto) 0.2 10 3/uL 0.0-0.7 [facility] Immature Granulocyte # (Auto) 0.01 10 3/uL 0.00-0.03 [facility] Platelet mean volume Auto (B ld) [Entitic vol]on 06-02-2024 Platelet mean volume (Bld) [Entitic vol] Platelet mean volume [Entitic volume] in Blood by Automated count Low 9.5-13.5 [facility] Platelets Auto (Bld) [#/Vol] on 06-02-2024 Platelets (Bld) [#/Vol] Platelets [#/volume] in Blood by Automated count 150-450 [facility] RBC Auto (Bld) [#/Vol]on RBC (Bld) [#/Vol] Erythrocytes [#/volu me] in Blood by Automated count 4.20-5.40 [facility] Serum or plasma anion gap de terminationon 06-02-2024 Anion gap [Moles/Vol] Serum or plasma an ion gap determination [facility] Serum or plasma total choles terol/high density lipoprotein (HDL) cholesterol mass edu 06-02-2024 Cholesterol.total/Chol esterol in HDL [Mass ratio] Serum or plasma total cholesterol/high density lipoprotein (HDL) cholesterol mass rat [facility] Comment on above: 3.3 - 4.4 [...] 161 TODAY - 286ml. See #2. Ordered: [id number] Measure Post Void residual urine and/or bladder capacity by US- non-imaging Urnls Dip Stick Auto w/o Microscopy POC 76446 2. Urethral stricture (N35.919: Unspecified urethral stricture, [...] been obtained. Will order Local anesthesia. Ordered: [id number] Measure Post Void residual urine and/or bladder capacity by US- non-imaging Urnls Dip Stick Auto w/o Microscopy POC 90720 3. 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 Abd MRI 01/21/23 FR - mildly septated T2 hyperintense lesion involving [...] better look at the complex cyst. Ordered: [id number] Measure Post Void residual urine and/or bladder capacity by US- non-imaging Urnls Dip Stick Auto w/o Microscopy POC 60735 4. 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 [address] Additional Instructions: Follow up schedule [...] 06/02/2024 Tobac (more content not included)... Normal [facility] Comment on above: Result Comment: Elec tronically Signed By: ESTELA CHUNG PA-C\.br\Date and Time Signed: 06/02/24 16:50 EST\.br\Electronically Co-Signed By: Shyann Yoo\Date and Time Co-Signed: 06/02/24 15:54 EST US renal BIon 05-30-2024 US renal BI [facility] [place] [address] [place] [id number] Ultrasound Report Signed Patient: Maricarmen Anderson MR#: [id number] : 1980 Acct:[id number] Age/Sex: 43 / F ADM Date: 05/30/24 Loc: Room: Type: [facility] Attending Dr: Estela Chung PA-C Ordering Provider: [...] Oro Jr., D.OBeatris05/30/2024 6:31 PM Dictation Location: [facility]--18 Tech: Gretanorma Reyes Transcribed By: RAFA 05/30/241830 Dictated By: Mitchel Oro Jr, DO 05/30/241828 Signed By: 05/30/24 183 Normal [facility] APTCedrick 10-31-2023 aPTT Coag (Bld) [Time] 139.6 s Critically high 23.0-36. 5 [facility] Comment on above: Result Comment: IV Heparin Therapy Range: 66.0-92.0 sec Performed By: #### P TT #### [address] [address] Creative Lead: Breezy White MD CBCon 10-31-2023 Erythrocyte distribution width (RBC) [Ratio] 12.7 % Normal 11.8-14.4 [facility] Comment on above: Performed By: #### C BC #### [address] [address] Creative Lead: Breezy White MD Hematocrit (Bld) [Volume fraction] 36.5 % Normal 36.3-47.1 [facility] Comment on above: Performed By: #### C BC #### [address] [address] Creative Lead: Breezy White MD Hemoglobin (Bld) [Mass/Vol] 12.0 g/dL Normal 11.9-15.1 [facility] Comment on above: Performed By: #### C BC #### [address] [address] Creative Lead: Breezy White MD MCH (RBC) [Entitic mass] 31.9 pg Normal 25.2-33.5 [facility] Comment on above: Performed By: #### C BC #### [address] [address] Creative Lead: Breezy White MD MCHC (RBC) [Mass/Vol] 32.9 g/dL Normal 28.4-34.8 [facility] Comment on above: Performed By: #### C BC #### [address] [address] Creative Lead: Breezy White MD MCV (RBC) [Entitic vol] 97.1 fL Normal 82.6-102.9 [facility] Comment on above: Performed By: #### C BC #### [address] [address] Creative Lead: Breezy White MD NRBC Automated 0.0 per 100 WBC Normal 0.0 [facility] Comment on above: Performed By: #### C BC #### [address] [address] Creative Lead: Breezy White MD Platelet mean volume (Bld) [Entitic vol] 9.9 fL Normal 8.1-13.5 [facility] Comment on above: Performed By: #### C BC #### [address] [address] Creative Lead: Breezy White MD Platelets (Bld) [#/Vol] 149 10*3/uL Normal 138-453 [facility] Comment on above: Performed By: #### C BC #### [address] [address] Creative Lead: Breezy White MD RBC (Bld) [#/Vol] 3.76 10*6/uL Low 3.95-5.11 [facility] Comment on above: Performed By: #### C BC #### [address] [address] Creative Lead: Breezy White MD WBC (Bld) [#/Vol] 5.0 10*3/uL Normal 3.5-11.3 [facility] Comment on above: Performed By: #### C BC #### [address] [address] Creative Lead: Breezy White MD APTTon 2023 aPTT Coag (Bld) [Time] 59.7 s High 23.0-36.5 [facility] Comment on above: Result Comment: IV Heparin Therapy Range: 66.0-92.0 sec Performed By: #### P TT #### [address] [address] Creative Lead: Breezy White MD aPTT Coag (Bld) [Time] 75.3 s High 23.0-36.5 [facility] Comment on above: Result Comment: IV Heparin Therapy Range: 66.0-92.0 sec Performed By: #### P TT #### [address] [id number] Creative Lead: Breezy White MD aPTT Coag (Bld) [Time] s Critically high 23.0-36. 5 [facility] Comment on above: Result Comment: IV Heparin Therapy Range: 66.0-92.0 sec Performed By: #### P TT #### [place] [address] Creative Lead: Breezy White MD APTTon 10-29-2023 aPTT Coag (Bld) [Time] 22.0 s Low 23.0-36.5 [facility] Comment on above: Result Comment: IV Heparin Therapy Range: 66.0-92.0 sec Performed By: #### P TT, HEPXA, CDP, BMPX, PT #### [place] [address] Creative Lead: Breezy White MD Basic Metab w/rfx MGon 10-28 Anion gap [Moles/Vol] 12 mmol/L Normal 9-16 [facility] Comment on above: Performed By: #### P TT, HEPXA, CDP, BMPX, PT #### [facility] [address] [place] [address] Creative Lead: Breezy White MD Calcium [Mass/Vol] 8.9 mg/dL Normal 8.6-10.4 [facility] Comment on above: Performed By: #### P TT, HEPXA, CDP, BMPX, PT #### [address] [address] Creative Lead: Breezy White MD Chloride [Moles/Vol] 105 mmol/L Normal 98-107 [facility] Comment on above: Performed By: #### P TT, HEPXA, CDP, BMPX, PT #### [facility] [address] [place] [address] Creative Lead: Breezy White MD CO2 [Moles/Vol] 22 mmol/L Normal 20-31 [facility] Comment on above: Performed By: #### P TT, HEPXA, CDP, BMPX, PT #### [address] [address] Creative Lead: Breezy White MD Creatinine [Mass/Vol] 0.8 mg/dL Normal 0.50-0.90 [facility] Comment on above: Performed By: #### P TT, HEPXA, CDP, BMPX, PT #### [address] [address] Creative Lead: Breezy White MD GFR/1.73 sq M.predicted among non-blacks MDRD (S/P/Bld) [Vol rate/Area] mL/min/{1.73_m2} Normal >60 [facility] Comment on above: Result Comment: These [...] P TT, HEPXA, CDP, BMPX, PT #### [address] [address] Creative Lead: Breezy White MD Glucose [Mass/Vol] 82 mg/dL Normal 74-99 [facility] Comment on above: Performed By: #### P TT, HEPXA, CDP, BMPX, PT #### [address] [address] Creative Lead: Breezy White MD Potassium [Moles/Vol] 4.0 mmol/L Normal 3.7-5.3 [facility] Comment on above: Performed By: #### P TT, HEPXA, CDP, BMPX, PT #### [address] [address] Creative Lead: Breezy White MD Sodium [Moles/Vol] 139 mmol/L Normal 136-145 [facility] Comment on above: Performed By: #### P TT, HEPXA, CDP, BMPX, PT #### [address] [address] Creative Lead: Breezy White MD Urea nitrogen [Mass/Vol] 10 mg/dL Normal 6-20 [facility] Comment on above: Performed By: #### P TT, HEPXA, CDP, BMPX, PT #### [place] [address] Creative Lead: Breezy White MD CBC with Diffon 10-29-2023 Abs. Basophil <0.03 Normal 0.00-0.20 [facility] Comment on above: Performed By: #### P TT, HEPXA, CDP, BMPX, PT #### [place] [address] Creative Lead: Breezy White MD Abs.Imm.Granulocyte <0.03 Normal 0.00-0.30 [facility] Comment on above: Performed By: #### P TT, HEPXA, CDP, BMPX, PT #### [address] [address] Creative Lead: Breezy White MD Abs.Neutrophil (Seg) 2.93 k/uL Normal 1.50-8.10 [facility] Comment on above: Performed By: #### P TT, HEPXA, CDP, BMPX, PT #### [address] [address] Creative Lead: Breezy White MD Basophils/100 WBC (Bld) 0 % Normal 0-2 [facility] Comment on above: Performed By: #### P TT, HEPXA, CDP, BMPX, PT #### [place] [address] Creative Lead: Breezy White MD Eosinophils (Bld) [#/Vol] 0.08 10*3/uL Normal 0.00-0.44 [facility] Comment on above: Performed By: #### P TT, HEPXA, CDP, BMPX, PT #### [address] [address] Creative Lead: Breezy White MD Eosinophils/100 WBC (Bld) 2 % Normal 1-4 [facility] Comment on above: Performed By: #### P TT, HEPXA, CDP, BMPX, PT #### [place] [address] Creative Lead: Breezy White MD Erythrocyte distribution width (RBC) [Ratio] 12.8 % Normal 11.8-14.4 [facility] Comment on above: Performed By: #### P TT, HEPXA, CDP, BMPX, PT #### [place] [address] Creative Lead: Breezy White MD Hematocrit (Bld) [Volume fraction] 38.6 % Normal 36.3-47.1 [facility] Comment on above: Performed By: #### P TT, HEPXA, CDP, BMPX, PT #### [address] [address] Creative Lead: Breezy White MD Hemoglobin (Bld) [Mass/Vol] 12.5 g/dL Normal 11.9-15.1 [facility] Comment on above: Performed By: #### P TT, HEPXA, CDP, BMPX, PT #### [address] [address] Creative Lead: Breezy White MD Immature granulocytes/100 WBC (Bld) 0 % Normal 0 [facility] Comment on above: Performed By: #### P TT, HEPXA, CDP, BMPX, PT #### [address] [address] Creative Lead: Breezy White MD Lymphocytes (Bld) [#/Vol] 1.24 10*3/uL Normal 1.10-3.70 [facility] Comment on above: Performed By: #### P TT, HEPXA, CDP, BMPX, PT #### [address] [address] Creative Lead: Breezy White MD Lymphocytes/100 WBC (Bld) 27 % Normal 24-43 [facility] Comment on above: Performed By: #### P TT, HEPXA, CDP, BMPX, PT #### [address] [address] Creative Lead: Breezy White MD MCH (RBC) [Entitic mass] 31.9 pg Normal 25.2-33.5 [facility] Comment on above: Performed By: #### P TT, HEPXA, CDP, BMPX, PT #### [address] [address] Creative Lead: Breezy White MD MCHC (RBC) [Mass/Vol] 32.4 g/dL Normal 28.4-34.8 [facility] Comment on above: Performed By: #### P TT, HEPXA, CDP, BMPX, PT #### [address] [address] Creative Lead: Breezy White MD MCV (RBC) [Entitic vol] 98.5 fL Normal 82.6-102.9 [facility] Comment on above: Performed By: #### P TT, HEPXA, CDP, BMPX, PT #### [address] [address] Creative Lead: Breezy White MD Monocytes (Bld) [#/Vol] 0.35 10*3/uL Normal 0.10-1.20 [facility] Comment on above: Performed By: #### P TT, HEPXA, CDP, BMPX, PT #### [address] [address] Creative Lead: Breezy White MD Monocytes/100 WBC (Bld) 8 % Normal 3-12 [facility] Comment on above: Performed By: #### P TT, HEPXA, CDP, BMPX, PT #### [place] [address] Creative Lead: Breezy White MD Neutrophil (Seg) 63 % Normal 36-65 [facility] Comment on above: Performed By: #### P TT, HEPXA, CDP, BMPX, PT #### [address] [address] Creative Lead: Breezy White MD NRBC Automated 0.0 per 100 WBC Normal 0.0 [facility] Comment on above: Performed By: #### P TT, HEPXA, CDP, BMPX, PT #### [place] [address] Creative Lead: Breezy White MD Platelet mean volume (Bld) [Entitic vol] 10.2 fL Normal 8.1-13.5 [facility] Comment on above: Performed By: #### P TT, HEPXA, CDP, BMPX, PT #### [address] [address] Creative Lead: Breezy White MD Platelets (Bld) [#/Vol] 152 10*3/uL Normal 138-453 [facility] Comment on above: Performed By: #### P TT, HEPXA, CDP, BMPX, PT #### [facility] [address] [place] [address] Creative Lead: Breezy White MD RBC (Bld) [#/Vol] 3.92 10*6/uL Low 3.95-5.11 [facility] Comment on above: Performed By: #### P TT, HEPXA, CDP, BMPX, PT #### [facility] [address] [place] [address] Creative Lead: Breezy White MD WBC (Bld) [#/Vol] 4.6 10*3/uL Normal 3.5-11.3 [facility] Comment on above: Performed By: #### P TT, HEPXA, CDP, BMPX, PT #### [facility] [address] [place] [address] Creative Lead: Breezy White MD Heparin Anti-Xaon 10-29-2023 Heparin Anti-Xa 1.59 IU/L Normal [facility] Comment on above: Performed By: #### P TT, HEPXA, CDP, BMPX, PT #### [address] [address] Creative Lead: Breezy White MD Laboratory - Coagulationon 0 10-29-2023 aPTT Coag (Bld) [Time] 102.5 s 48.2-68.6 [facility] Comment on above: RESULTS CALLED TO YAMILE WAGNER RN @BY Tanja Jj at 0615 PTon 10-29-2023 INR Coag (PPP) [Relative time] 1.1 {INR} Normal [facility] Comment on above: Result Comment: Therapeutic Range: Moderate Anticoagulant Intensity: INR = 2.0-3.0 High Anticoagulant Intensity: INR = 2.5-3.5 Performed By: #### P TT, HEPXA, CDP, BMPX, PT #### [employer] [address] [place] [address] Creative Lead: Breezy White MD PT Coag (PPP) [Time] 13.8 s Normal 11.7-14.9 [facility] Comment on above: Performed By: #### P TT, HEPXA, CDP, BMPX, PT #### [employer] [address] [place] [address] Creative Lead: Breezy White MD Activated partial thrombopla stin time (aPTT) in platelet poor plasma by coagulation aon 10-28-2023 aPTT Coag (PPP) [Time] 26.7 s 22.3-36.2 [facility] Basophils Auto (Bld) [#/Vol] on 10-28-2023 Basophils (Bld) [#/Vol] 0.0 10 3/uL 0.0-0.1 [facility] Basophils/100 WBC Auto (Bld) on 10-28-2023 Basophils/100 WBC (Bld) 0.4 % 0.2-2.0 [facility] Eosinophils/100 WBC Auto (Bl d)on 10-28-2023 Eosinophils/100 WBC (Bld) 1.1 % 0.9-7.0 [facility] Erythrocyte distribution wid th Auto (RBC) [Ratio]on 10-28-2023 Erythrocyte distribution width (RBC) [Ratio] 12.8 % 11.0-15.0 [facility] Estimated glomerular filtrat ion rate (GFR) non- Americanon 10-28-2023 GFR/1.73 sq M.predicted among non-blacks MDRD (S/P/Bld) [Vol rate/Area] mL/min/{1.73_m2} >=60 [facility] Globulin Calc (S) [Mass/Vol] on 10-28-2023 Globulin (S) [Mass/Vol] 3.6 g/dL [facility] Hematocrit Auto (Bld) [Volum e fraction]on 10-28-2023 Hematocrit (Bld) [Volume fraction] 35.3 % 36.0-48.0 [facility] Hemoglobin [Mass/volume] in Bloodon 10-28-2023 Hemoglobin (Bld) [Mass/Vol] 11.6 g/dL 12.0-16.0 [facility] INR in Platelet poor plasma by Coagulation assayon 10-28-2023 INR Coag (PPP) [Relative time] 0.98 {INR} [facility] Comment on above: DESIRED INR:2.0-3.0 CONDITIONS NOT LISTED BELOW2.5-3.5 FOR PROSTHETIC HEART VALVE REPLACEMENT2.5-3.5 RECURRENT THROMBOSIS Laboratory - Chemistry and C hemistry - challengeon 10-28-2023 Albumin [Mass/Vol] 3.2 g/dL 3.4-5.0 [facility] ALP [Catalytic activity/Vol] 82 U/L 46-116 [facility] ALT [Catalytic activity/Vol] 12 U/L 14-59 [facility] AST [Catalytic activity/Vol] 15 U/L 15-37 [facility] Bilirubin [Mass/Vol] 0.4 mg/dL 0.2-1.0 [facility] Calcium [Mass/Vol] 9.1 mg/dL 8.5-10.1 [facility] Chloride [Moles/Vol] 107 mmol/L 98-107 [facility] CO2 [Moles/Vol] 27.8 mmol/L 21.0-32.0 [facility] Creatinine [Mass/Vol] 0.92 mg/dL 0.55-1.02 [facility] GFR/1.73 sq M.predicted MDRD (S/P/Bld) [Vol rate/Area] mL/min/{1.73_m2} >=60 [facility] Glucose [Mass/Vol] 90 mg/dL 74-106 [facility] Natriuretic peptide B (Bld) [Mass/Vol] 152.0 pg/mL <=450.0 [facility] Potassium [Moles/Vol] 4.0 mmol/L 3.5-5.1 [facility] Protein [Mass/Vol] 6.8 g/dL 6.4-8.2 [facility] Sodium [Moles/Vol] 141 mmol/L 136-145 [facility] Urea nitrogen [Mass/Vol] 14.0 mg/dL 7.0-18.0 [facility] Urea nitrogen/Creatinine [Mass ratio] 15.2 mg/mg [facility] Laboratory - Hematology and Cell countson 10-28-2023 Immature granulocytes/100 WBC (Bld) 0.2 % 0.0-0.5 [facility] Leukocytes [#/volume] correc nneka for nucleated erythrocytes in Blood by Automated counon 10-28-2023 WBC corrected for nucl RBC Auto (Bld) [#/Vol] 5.5 10 3/uL 4.0-11.0 [facility] Lymphocytes Auto (Bld) [#/Vo l]on 10-28-2023 Lymphocytes (Bld) [#/Vol] 1.4 10 3/uL 1.2-3.8 [facility] Lymphocytes/100 WBC Auto (Bl d)on 10-28-2023 Lymphocytes/100 WBC (Bld) 25.2 % 20.5-60.0 [facility] MCH Auto (RBC) [Entitic mass ]on 10-28-2023 MCH (RBC) [Entitic mass] 31.8 pg 26.7-34.0 [facility] MCHC Auto (RBC) [Mass/Vol]on 10-28-2023 MCHC (RBC) [Mass/Vol] 32.9 g/dL 29.9-35.2 [facility] MCV Auto (RBC) [Entitic vol] on 10-28-2023 MCV (RBC) [Entitic vol] 96.7 fL 81.0-99.0 [facility] Monocytes Auto (Bld) [#/Vol] on 10-28-2023 Monocytes (Bld) [#/Vol] 0.4 10 3/uL 0.3-0.8 [facility] Monocytes/100 WBC Auto (Bld) on 10-28-2023 Monocytes/100 WBC (Bld) 7.3 % 1.7-12.0 [facility] Neutrophils Auto (Bld) [#/Vo l]on 10-28-2023 Neutrophils (Bld) [#/Vol] 3.6 10 3/uL 1.4-6.5 [facility] Neutrophils/100 WBC Auto (Bl d)on 10-28-2023 Neutrophils/100 WBC (Bld) 65.8 % 43.0-75.0 [facility] No Panel Informationon 10-27 Eosinophils # (Auto) 0.1 10 3/uL 0.0-0.7 [facility] Immature Granulocyte # (Auto) 0.01 10 3/uL 0.00-0.03 [facility] Troponin I High Sensitivity 4.1 pg/mL 4.0-51.3 [facility] Comment on above: CUT-OFF POINTS HAVE [...] volume (Bld) [Entitic vol] 9.4 fL 9.5-13.5 [facility] Platelets Auto (Bld) [#/Vol] on 10-28-2023 Platelets (Bld) [#/Vol] 154 10 3/uL 150-450 [facility] Prothrombin time (PT)on PT Coag (PPP) [Time] 10.4 s 9.0-11.6 [facility] RBC Auto (Bld) [#/Vol]on RBC (Bld) [#/Vol] 3.65 10 6/uL 4.20-5.40 [facility] Serum or plasma albumin/glob ulin mass ratioon 10-28-2023 Albumin/Globulin [Mass ratio] 0.9 {ratio} [facility] Serum or plasma anion gap de terminationon 10-28-2023 Anion gap [Moles/Vol] 10.2 mmol/L [facility] Basophils Auto (Bld) [#/Vol] on 10-27-2023 Basophils (Bld) [#/Vol] 0.0 10 3/uL 0.0-0.1 [facility] Basophils/100 WBC Auto (Bld) on 10-27-2023 Basophils/100 WBC (Bld) 0.6 % 0.2-2.0 [facility] Eosinophils/100 WBC Auto (Bl d)on 10-27-2023 Eosinophils/100 WBC (Bld) 1.9 % 0.9-7.0 [facility] Erythrocyte distribution wid th Auto (RBC) [Ratio]on 10-27-2023 Erythrocyte distribution width (RBC) [Ratio] 13.0 % 11.0-15.0 [facility] Estimated glomerular filtrat ion rate (GFR) non- Americanon 10-27-2023 GFR/1.73 sq M.predicted among non-blacks MDRD (S/P/Bld) [Vol rate/Area] mL/min/{1.73_m2} >=60 [facility] Globulin Calc (S) [Mass/Vol] on 10-27-2023 Globulin (S) [Mass/Vol] 3.3 g/dL [facility] Hematocrit Auto (Bld) [Volum e fraction]on 10-27-2023 Hematocrit (Bld) [Volume fraction] 34.1 % 36.0-48.0 [facility] Hemoglobin [Mass/volume] in Bloodon 10-27-2023 Hemoglobin (Bld) [Mass/Vol] 11.0 g/dL 12.0-16.0 [facility] INR in Platelet poor plasma by Coagulation assayon 10-27-2023 INR Coag (PPP) [Relative time] 1.02 {INR} [facility] Comment on above: DESIRED INR:2.0-3.0 CONDITIONS NOT LISTED BELOW2.5-3.5 FOR PROSTHETIC HEART VALVE REPLACEMENT2.5-3.5 RECURRENT THROMBOSIS Laboratory - Chemistry and C hemistry - challengeon 10-27-2023 Albumin [Mass/Vol] 2.8 g/dL 3.4-5.0 [facility] ALP [Catalytic activity/Vol] 74 U/L 46-116 [facility] ALT [Catalytic activity/Vol] 12 U/L 14-59 [facility] AST [Catalytic activity/Vol] 11 U/L 15-37 [facility] Bilirubin [Mass/Vol] 0.5 mg/dL 0.2-1.0 [facility] Calcium [Mass/Vol] 9.0 mg/dL 8.5-10.1 [facility] Chloride [Moles/Vol] 106 mmol/L 98-107 [facility] CO2 [Moles/Vol] 25.5 mmol/L 21.0-32.0 [facility] Creatinine [Mass/Vol] 0.76 mg/dL 0.55-1.02 [facility] GFR/1.73 sq M.predicted MDRD (S/P/Bld) [Vol rate/Area] mL/min/{1.73_m2} >=60 [facility] Glucose [Mass/Vol] 87 mg/dL 74-106 [facility] Lactate [Moles/Vol] 1.1 mmol/L 0.4-2.0 [facility] Potassium [Moles/Vol] 4.2 mmol/L 3.5-5.1 [facility] Protein [Mass/Vol] 6.1 g/dL 6.4-8.2 [facility] Sodium [Moles/Vol] 140 mmol/L 136-145 [facility] Urea nitrogen [Mass/Vol] 8.0 mg/dL 7.0-18.0 [facility] Urea nitrogen/Creatinine [Mass ratio] 10.5 mg/mg [facility] Laboratory - Coagulationon 0 10-27-2023 aPTT Coag (Bld) [Time] 81.9 s 48.2-68.6 [facility] Comment on above: RESULTS CALLED TO Lin COFFEY)@BY Estela Montanez MLT at 0504 Laboratory - Hematology and Cell countson 10-27-2023 Immature granulocytes/100 WBC (Bld) 0.2 % 0.0-0.5 [facility] Leukocytes [#/volume] correc nneka for nucleated erythrocytes in Blood by Automated counon 10-27-2023 WBC corrected for nucl RBC Auto (Bld) [#/Vol] 4.7 10 3/uL 4.0-11.0 [facility] Lymphocytes Auto (Bld) [#/Vo l]on 10-27-2023 Lymphocytes (Bld) [#/Vol] 1.8 10 3/uL 1.2-3.8 [facility] Lymphocytes/100 WBC Auto (Bl d)on 10-27-2023 Lymphocytes/100 WBC (Bld) 37.7 % 20.5-60.0 [facility] MCH Auto (RBC) [Entitic mass ]on 10-27-2023 MCH (RBC) [Entitic mass] 31.4 pg 26.7-34.0 [facility] MCHC Auto (RBC) [Mass/Vol]on 10-27-2023 MCHC (RBC) [Mass/Vol] 32.3 g/dL 29.9-35.2 [facility] MCV Auto (RBC) [Entitic vol] on 10-27-2023 MCV (RBC) [Entitic vol] 97.4 fL 81.0-99.0 [facility] Monocytes Auto (Bld) [#/Vol] on 10-27-2023 Monocytes (Bld) [#/Vol] 0.3 10 3/uL 0.3-0.8 [facility] Monocytes/100 WBC Auto (Bld) on 10-27-2023 Monocytes/100 WBC (Bld) 7.2 % 1.7-12.0 [facility] Neutrophils Auto (Bld) [#/Vo l]on 10-27-2023 Neutrophils (Bld) [#/Vol] 2.5 10 3/uL 1.4-6.5 [facility] Neutrophils/100 WBC Auto (Bl d)on 10-27-2023 Neutrophils/100 WBC (Bld) 52.4 % 43.0-75.0 [facility] No Panel Informationon 10-26 Eosinophils # (Auto) 0.1 10 3/uL 0.0-0.7 [facility] Immature Granulocyte # (Auto) 0.01 10 3/uL 0.00-0.03 [facility] Platelet mean volume Auto (B ld) [Entitic vol]on 10-27-2023 Platelet mean volume (Bld) [Entitic vol] 9.9 fL 9.5-13.5 [facility] Platelets Auto (Bld) [#/Vol] on 10-27-2023 Platelets (Bld) [#/Vol] 122 10 3/uL 150-450 [facility] Prothrombin time (PT)on PT Coag (PPP) [Time] 10.8 s 9.0-11.6 [facility] RBC Auto (Bld) [#/Vol]on RBC (Bld) [#/Vol] 3.50 10 6/uL 4.20-5.40 [facility] Serum or plasma albumin/glob ulin mass ratioon 10-27-2023 Albumin/Globulin [Mass ratio] 0.8 {ratio} [facility] Serum or plasma anion gap de terminationon 10-27-2023 Anion gap [Moles/Vol] 12.7 mmol/L [facility] Amorphous urine sedimenton 0 10-26-2023 Amorphous sediment LM Ql (Urine sed) FEW [facility] Automated epithelial cells c ount in urine sediment (number/area)on 10-26-2023 Epithelial cells Auto (Urine sed) [#/Area] MANY #/LPF NONE/RARE [facility] Bacteria [Presence] in Urine by Automatedon 10-26-2023 Bacteria Auto Ql (U) NONE SEEN #/HPF NONE SEEN [facility] Basophils Auto (Bld) [#/Vol] on 10-26-2023 Basophils (Bld) [#/Vol] 0.0 10 3/uL 0.0-0.1 [facility] Basophils/100 WBC Auto (Bld) on 10-26-2023 Basophils/100 WBC (Bld) 0.5 % 0.2-2.0 [facility] Bilirubin Auto test strip (U ) [Mass/Vol]on 10-26-2023 Bilirubin (U) [Mass/Vol] Negative NEGATIVE [facility] Casts typing in urine sedime nt by light microscopyon 10-26-2023 Casts LM Nom (Urine sed) NONE SEEN #/LPF NONE SEEN [facility] Eosinophils/100 WBC Auto (Bl d)on 10-26-2023 Eosinophils/100 WBC (Bld) 1.4 % 0.9-7.0 [facility] Erythrocyte distribution wid th Auto (RBC) [Ratio]on 10-26-2023 Erythrocyte distribution width (RBC) [Ratio] 12.7 % 11.0-15.0 [facility] Estimated glomerular filtrat ion rate (GFR) non- Americanon 10-26-2023 GFR/1.73 sq M.predicted among non-blacks MDRD (S/P/Bld) [Vol rate/Area] mL/min/{1.73_m2} >=60 [facility] Globulin Calc (S) [Mass/Vol] on 10-26-2023 Globulin (S) [Mass/Vol] 4.2 g/dL [facility] HCG ( test) IA.rapi d Ql (U)on 10-26-2023 HCG ( test) Ql (U) Negative NEGATIVE [facility] Hematocrit Auto (Bld) [Volum e fraction]on 10-26-2023 Hematocrit (Bld) [Volume fraction] 38.5 % 36.0-48.0 [facility] Hemoglobin [Mass/volume] in Bloodon 10-26-2023 Hemoglobin (Bld) [Mass/Vol] 12.7 g/dL 12.0-16.0 [facility] INR in Platelet poor plasma by Coagulation assayon 10-26-2023 INR Coag (PPP) [Relative time] 0.96 {INR} [facility] Comment on above: DESIRED INR:2.0-3.0 CONDITIONS NOT LISTED BELOW2.5-3.5 FOR PROSTHETIC HEART VALVE REPLACEMENT2.5-3.5 RECURRENT THROMBOSIS Laboratory - Chemistry and C hemistry - challengeon 10-26-2023 Glucose (U) [Mass/Vol] Negative NEGATIVE [facility] Ketones Ql (U) Negative NEGATIVE [facility] pH (U) 6.0 [pH] 5.0-9.0 [facility] Specific gravity (U) [Rel density] >=1.030 1.005-1.025 [facility] Urobilinogen Qn (U) 1.0 {José'U}/dL 0.2-1.0 [facility] Albumin [Mass/Vol] 3.4 g/dL 3.4-5.0 [facility] ALP [Catalytic activity/Vol] 98 U/L 46-116 [facility] ALT [Catalytic activity/Vol] 11 U/L 14-59 [facility] AST [Catalytic activity/Vol] 9 U/L 15-37 [facility] Bilirubin [Mass/Vol] 0.5 mg/dL 0.2-1.0 [facility] Calcium [Mass/Vol] 9.5 mg/dL 8.5-10.1 [facility] Chloride [Moles/Vol] 104 mmol/L 98-107 [facility] CO2 [Moles/Vol] 25.6 mmol/L 21.0-32.0 [facility] Creatinine [Mass/Vol] 0.94 mg/dL 0.55-1.02 [facility] GFR/1.73 sq M.predicted MDRD (S/P/Bld) [Vol rate/Area] mL/min/{1.73_m2} >=60 [facility] Glucose [Mass/Vol] 96 mg/dL 74-106 [facility] Lactate [Moles/Vol] 2.3 mmol/L 0.4-2.0 [facility] Comment on above: RESULTS CALLED TO Vj Victoria (RN)@BY Estela Montanez MLT at 2012 Natriuretic peptide B (Bld) [Mass/Vol] 55.0 pg/mL <=450.0 [facility] Potassium [Moles/Vol] 3.2 mmol/L 3.5-5.1 [facility] Protein [Mass/Vol] 7.6 g/dL 6.4-8.2 [facility] Sodium [Moles/Vol] 140 mmol/L 136-145 [facility] TSH Qn 3.806 m[IU]/L 0.358-3.740 [facility] Urea nitrogen [Mass/Vol] 10.0 mg/dL 7.0-18.0 [facility] Urea nitrogen/Creatinine [Mass ratio] 10.6 mg/mg [facility] Laboratory - Hematology and Cell countson 10-26-2023 Immature granulocytes/100 WBC (Bld) 0.3 % 0.0-0.5 [facility] Laboratory - Specimen inform ationon 10-26-2023 Appearance (U) CLEAR CLEAR [facility] Color (U) LT. YELLOW YELLOW [facility] Laboratory - Urinalysison Leukocyte esterase Test strip Ql (U) SMALL NEGATIVE [facility] Nitrite Ql (U) Negative NEGATIVE [facility] Protein Ql (U) Negative NEG/TRACE [facility] Leukocytes [#/area] in Urine sediment by Automated counton 10-26-2023 WBC Auto (Urine sed) [#/Area] NONE SEEN #/HPF 0-2 [facility] Leukocytes [#/area] in Urine sediment by Microscopy high power fieldon 10-26-2023 WBC LM.HPF (Urine sed) [#/Area] 5-10 #/HPF NONE SEEN [facility] Leukocytes [#/volume] correc nneka for nucleated erythrocytes in Blood by Automated counon 10-26-2023 WBC corrected for nucl RBC Auto (Bld) [#/Vol] 6.3 10 3/uL 4.0-11.0 [facility] Lymphocytes Auto (Bld) [#/Vo l]on 10-26-2023 Lymphocytes (Bld) [#/Vol] 1.4 10 3/uL 1.2-3.8 [facility] Lymphocytes/100 WBC Auto (Bl d)on 10-26-2023 Lymphocytes/100 WBC (Bld) 21.8 % 20.5-60.0 [facility] MCH Auto (RBC) [Entitic mass ]on 10-26-2023 MCH (RBC) [Entitic mass] 31.8 pg 26.7-34.0 [facility] MCHC Auto (RBC) [Mass/Vol]on 10-26-2023 MCHC (RBC) [Mass/Vol] 33.0 g/dL 29.9-35.2 [facility] MCV Auto (RBC) [Entitic vol] on 10-26-2023 MCV (RBC) [Entitic vol] 96.5 fL 81.0-99.0 [facility] Monocytes Auto (Bld) [#/Vol] on 10-26-2023 Monocytes (Bld) [#/Vol] 0.5 10 3/uL 0.3-0.8 [facility] Monocytes/100 WBC Auto (Bld) on 10-26-2023 Monocytes/100 WBC (Bld) 7.2 % 1.7-12.0 [facility] Mucus LM Ql (Urine sed)on Mucus Ql (Urine sed) SMALL NONE SEEN [facility] Neutrophils Auto (Bld) [#/Vo l]on 10-26-2023 Neutrophils (Bld) [#/Vol] 4.3 10 3/uL 1.4-6.5 [facility] Neutrophils/100 WBC Auto (Bl d)on 10-26-2023 Neutrophils/100 WBC (Bld) 68.8 % 43.0-75.0 [facility] No Panel Informationon 10-25 Urine Culture Reflexed YES [facility] Urine Microscopic Review YES [facility] Eosinophils # (Auto) 0.1 10 3/uL 0.0-0.7 [facility] Immature Granulocyte # (Auto) 0.02 10 3/uL 0.00-0.03 [facility] Troponin I High Sensitivity <4.0 pg/mL 4.0-51.3 [facility] Comment on above: CUT-OFF POINTS HAVE [...] volume (Bld) [Entitic vol] 9.8 fL 9.5-13.5 [facility] Platelets Auto (Bld) [#/Vol] on 10-26-2023 Platelets (Bld) [#/Vol] 138 10 3/uL 150-450 [facility] Prothrombin time (PT)on PT Coag (PPP) [Time] 10.2 s 9.0-11.6 [facility] RBC Auto (Bld) [#/Vol]on RBC (Bld) [#/Vol] 3.99 10 6/uL 4.20-5.40 [facility] Serum or plasma albumin/glob ulin mass ratioon 10-26-2023 Albumin/Globulin [Mass ratio] 0.8 {ratio} [facility] Serum or plasma anion gap de terminationon 10-26-2023 Anion gap [Moles/Vol] 13.6 mmol/L Fi [facility] Urine hemoglobin detection b y automated test stripon 10-26-2023 Hemoglobin Auto test strip Ql (U) Negative NEGATIVE [facility] Urine sediment crystal ident ification by light microscopyon 10-26-2023 Crystals LM Nom (Urine sed) None Seen #/HPF None Seen [facility] Cardiac Device Check - Remot michael 04-24-2023 Radiology Study observation (narrative) [facility] Work Phone: Cardiac Device Check - Remot eOrdered By: Rita Olivia on 04-24-2023 [facility] Work Phone: Office Visit (Cardiology)on 01-20-2023 [...] Pacemaker; Status:Hold For - Scheduling,Retrospective Authorization; Requested for:23Jul2023; Class 2 obesity with body mass index [...] arrhythmias iss (more content not included)... Normal [employer] Tobacco Screening.on 023 Adult depression screening assessment No [facility] [address] DO Work Phone: Fall risk assessment a) No falls within the last year [facility] [address] DO Work Phone: Tobacco use status [facility] b) No [facility] [address] DO Work Phone: Alanine aminotransferase [En zymatic activity/volume] in Serum or PlasmaOrdered By: Ke Cage on 12-11-2022 ALT [Catalytic activity/Vol] 13 U/L 7-52 [facility] Albumin [Mass/volume] in Ser um or Plasma by Bromocresol green (BCG) dye binding methoOrdered By: Ke Cage on 12-11-2022 Albumin BCG dye [Mass/Vol] 4.8 g/dL 3.5-5.7 [facility] Alkaline phosphatase [Enzyma tic activity/volume] in Serum or PlasmaOrdered By: Ke Cage on 12-11-2022 ALP [Catalytic activity/Vol] 83 U/L 34-104 [facility] Amphetamine Screen Ql (U)Ord ered By: Ke Cage on 12-11-2022 Amphetamines Ql (U) Negative Negative [facility] Aspartate aminotransferase [ Enzymatic activity/volume] in Serum or PlasmaOrdered By: Ke Cage on 12-11-2022 AST [Catalytic activity/Vol] 20 U/L 13-39 [facility] Automated erythrocytes count in urine sediment (number/area)Ordered By: Ke Cage on 12-11-2022 RBC Auto (Urine sed) [#/Area] 0-1 [HPF] 0-4 [facility] Automated leukocytes count i n urine sediment (number/area)Ordered By: Ke Cage on 12-11-2022 WBC Auto (Urine sed) [#/Area] 5-9 [HPF] 0-4 [facility] Barbiturates [Presence] in U rine by Screen methodOrdered By: Ke Cage on 12-11-2022 Barbiturates Screen Ql (U) Negative Negative [facility] Basophils Auto (Bld) [#/Vol] Ordered By: Ke Cage on 12-11-2022 Basophils (Bld) [#/Vol] 0.0 10*3/uL 0.0-0.2 [facility] Basophils/100 WBC Auto (Bld) Ordered By: Ke Cage on 12-11-2022 Basophils/100 WBC (Bld) 0.7 % . [facility] Benzodiazepines Screen Ql (U )Ordered By: Ke Cage on 12-11-2022 Benzodiazepines Ql (U) Negative Negative [facility] Benzoylecgonine [Presence] i n Urine by Screen methodOrdered By: Ke Cage on 12-11-2022 Benzoylecgonine Screen Ql (U) Negative Negative [facility] Bilirubin Auto test strip Ql (U)Ordered By: Ke Cage on 12-11-2022 Bilirubin Ql (U) Negative Negative [facility] Bilirubin.total [Mass/volume ] in Serum or PlasmaOrdered By: Ke Cage on 12-11-2022 Bilirubin [Mass/Vol] 0.6 mg/dL 0.3-1.0 [facility] Calcium [Mass/volume] in Ser um or PlasmaOrdered By: Ke Cage on 12-11-2022 Calcium [Mass/Vol] 9.9 mg/dL 8.6-10.3 [facility] Cannabinoids [Presence] in U rine by Screen methodOrdered By: Ke Cage on 12-11-2022 Cannabinoids Screen Ql (U) Negative Negative [facility] Comment on above: These are unconfirme d results and should not be used for legal purposes. Drug Cut-Off Concentration: AMPH 1000 ng/mL BOO 200 ng/mL HELGA 200 ng/mL COCM 300 ng/mL OP 300 ng/mL PCP 25 ng/mL THC 20 ng/mL Carbon dioxide, total [Moles /volume] in Serum or PlasmaOrdered By: Ke Cage on 12-11-2022 CO2 [Moles/Vol] 24.2 mmol/L 21.0-31.0 [facility] Chloride [Moles/volume] in S mac or PlasmaOrdered By: Ke Cage on 12-11-2022 Chloride [Moles/Vol] 107 mmol/L 98-107 [facility] Cholesterol [Mass/volume] in Serum or PlasmaOrdered By: Eduardo Swain on 12-11-2022 Cholesterol [Mass/Vol] 229 mg/dL 140-200 [facility] Comment on above: Chol less than 200 m g/dl low riskChol 201-239 mg/dl borderline riskChol 240 mg/dl and greater high risk Cholesterol in LDL Calc [Mas s/Vol]Ordered By: Eduardo Swain on 12-11-2022 Cholesterol in LDL [Mass/Vol] 129 mg/dL 0-100 [facility] Comment on above: LDL ATP III CLASSIFI CATIONLDL less than 100 mg/dL OptimalLDL 100-129 mg/dL Near or above optimalLDL 130-159 mg/dL Borderline highLDL 160-189 mg/dL HighLDL greater than 189 mg/dL Very high Cholesterol in VLDL Calc [Ma ss/Vol]Ordered By: Eduardo Swain on 12-11-2022 Cholesterol in VLDL [Mass/Vol] 13 mg/dL [facility] Creatinine [Mass/volume] in Serum or PlasmaOrdered By: Ke Cage on 12-11-2022 Creatinine [Mass/Vol] 0.78 mg/dL 0.60-1.20 [facility] Eosinophils Auto (Bld) [#/Vo l]Ordered By: Ke Cage on 12-11-2022 Eosinophils (Bld) [#/Vol] 0.1 10*3/uL 0.0-0.45 [facility] Eosinophils/100 WBC Auto (Bl d)Ordered By: Ke Cage on 12-11-2022 Eosinophils/100 WBC (Bld) 2.2 % . [facility] Erythrocyte distribution wid th Auto (RBC) [Ratio]Ordered By: Ke Cage on 12-11-2022 Erythrocyte distribution width (RBC) [Ratio] 12.9 % 11.9-15.3 [facility] Ethanol [Mass/volume] in Ser um or PlasmaOrdered By: Ke Cage on 12-11-2022 Ethanol [Mass/Vol] mg/dL [facility] Ethanol [Mass/Vol] TNP [facility] Comment on above: Test not performed Globulin Calc (S) [Mass/Vol] Ordered By: Ke Cage on 12-11-2022 Globulin (S) [Mass/Vol] 2.7 g/dL [facility] Glucose [Mass/volume] in Ser um or PlasmaOrdered By: Ke Cage on 12-11-2022 Glucose [Mass/Vol] 87 mg/dL 70-100 [facility] Comment on above: ADA recommended refe rence rangeRandom Glucose Reference Range is dependent on time and content of last meal. Glucose of more than 200 mg/dL in a nonstressed, ambulatory subject supports the diagnosis of Diabetes Mellitus. HCG ( test) IA.rapi d Ql (U)Ordered By: Ke Cage on 12-11-2022 HCG ( test) Ql (U) Negative [facility] Hematocrit Auto (Bld) [Volum e fraction]Ordered By: Ke Cage on 12-11-2022 Hematocrit (Bld) [Volume fraction] 41.8 % 34.0-46.4 [facility] Hemoglobin [Mass/volume] in BloodOrdered By: Ke Cage on 12-11-2022 Hemoglobin (Bld) [Mass/Vol] 14.2 g/dL 11.8-15.4 [facility] Ketones Auto test strip (U) [Mass/Vol]Ordered By: Ke Cage on 12-11-2022 Ketones (U) [Mass/Vol] Negative Negative [facility] - UrinalysisOrder ed By: Ke Cage on 12-11-2022 Hyaline casts LM Ql (Urine sed) 0-8 [LPF] 0-8 [facility] Leukocytes [#/volume] correc nneka for nucleated erythrocytes in Blood by Automated counOrdered By: Ke Cage on 12-11-2022 WBC corrected for nucl RBC Auto (Bld) [#/Vol] 5.8 10*3/uL 3.8-11.6 [facility] Lymphocytes Auto (Bld) [#/Vo l]Ordered By: Ke Cage on 12-11-2022 Lymphocytes (Bld) [#/Vol] 1.7 10*3/uL 1.00-4.8 [facility] Lymphocytes/100 WBC Auto (Bl d)Ordered By: Ke Cage on 12-11-2022 Lymphocytes/100 WBC (Bld) 28.6 % . [facility] MCH Auto (RBC) [Entitic mass ]Ordered By: Ke Cage on 12-11-2022 MCH (RBC) [Entitic mass] 32.4 pg 24.7-34.3 [facility] MCHC Auto (RBC) [Mass/Vol]Or dered By: Ke Cage on 12-11-2022 MCHC (RBC) [Mass/Vol] 33.9 g/dL 32.0-35.0 [facility] MCV Auto (RBC) [Entitic vol] Ordered By: Ke Cage on 12-11-2022 MCV (RBC) [Entitic vol] 95.4 fL 80-100 [facility] Monocyte distribution width [Entitic volume] in Blood by AutomatedOrdered By: Ke Cage on 12-11-2022 Monocyte distribution width Auto (Bld) [Entitic vol] 17.61 % 0.00-20.00 [facility] Monocytes Auto (Bld) [#/Vol] Ordered By: Ke Cage on 12-11-2022 Monocytes (Bld) [#/Vol] 0.5 10*3/uL 0.0-0.8 [facility] Monocytes/100 WBC Auto (Bld) Ordered By: eK Cage on 12-11-2022 Monocytes/100 WBC (Bld) 8.1 % . [facility] Neutrophils Auto (Bld) [#/Vo l]Ordered By: Ke Cage on 12-11-2022 Neutrophils (Bld) [#/Vol] 3.5 10*3/uL 1.8-7.7 [facility] Neutrophils/100 WBC Auto (Bl d)Ordered By: Ke Cage on 12-11-2022 Neutrophils/100 WBC (Bld) 60.4 % . [facility] No Panel InformationOrdered By: Ke Cage on 12-11-2022 Estimated GFR (CKD-EPI) > 60.0 mL/Min [facility] Creatinine Clearance (Chem 119.76 [facility] Nucleated erythrocytes [Pres ence] in Blood by Automated countOrdered By: Ke Cage on 12-11-2022 Nucleated RBC Auto Ql (Bld) 0.1 /100{WBC} 0-0.5 [facility] Opiates [Presence] in Urine by Screen methodOrdered By: Ke Cage on 12-11-2022 Opiates Screen Ql (U) Negative Negative [facility] Phencyclidine Screen Ql (U)O rdered By: Ke Cage on 12-11-2022 Phencyclidine Ql (U) Negative Negative [facility] Platelet mean volume Auto (B ld) [Entitic vol]Ordered By: Ke Cage on 12-11-2022 Platelet mean volume (Bld) [Entitic vol] 7.9 fL 6.3-10.7 [facility] Platelets Auto (Bld) [#/Vol] Ordered By: Ke Cage on 12-11-2022 Platelets (Bld) [#/Vol] 185 10*3/uL 150-450 [facility] Potassium [Moles/volume] in Serum or PlasmaOrdered By: Ke Cage on 12-11-2022 Potassium [Moles/Vol] 3.8 mmol/L 3.5-5.1 [facility] Protein Auto test strip (U) [Mass/Vol]Ordered By: Ke Cage on 12-11-2022 Protein (U) [Mass/Vol] Negative Negative [facility] Protein [Mass/volume] in Ser um or PlasmaOrdered By: Ke Cage on 12-11-2022 Protein [Mass/Vol] 7.5 g/dL 6.4-8.9 [facility] RBC Auto (Bld) [#/Vol]Ordere d By: Ke Cage on 12-11-2022 RBC (Bld) [#/Vol] 4.38 10*6/uL 3.60-5.00 [facility] Serum or plasma albumin/glob ulin mass ratioOrdered By: Ke Cage on 12-11-2022 Albumin/Globulin [Mass ratio] 1.8 {ratio} [facility] Serum or plasma anion gap de terminationOrdered By: Ke Cage on 12-11-2022 Anion gap [Moles/Vol] 12.6 mmol/L 6.0-15.0 [facility] Serum or plasma high density lipoprotein (HDL) cholesterol measurementOrdered By: Eduardo Swain on 12-11-2022 Cholesterol in HDL [Mass/Vol] 87 mg/dL [facility] Comment on above: HDL CHOL ATP-III CLA SSIFICATION Cardiovascular RiskHDL > or equal to 60 mg/dL LOWHDL < 40 mg/dL HIGH Serum or plasma total choles terol/high density lipoprotein (HDL) cholesterol mass ratOrdered By: Eduardo Swain on 12-11-2022 Cholesterol.total/Chol esterol in HDL [Mass ratio] 2.6 {ratio} <5.0 [facility] Sodium [Moles/volume] in Ser um or PlasmaOrdered By: Ke Cage on 12-11-2022 Sodium [Moles/Vol] 140 mmol/L 136-145 [facility] Squamous epithelial cells de tection in urine sediment by light microscopyOrdered By: Ke Cage on 12-11-2022 Epithelial cells.squamous LM Ql (Urine sed) 3-4 [HPF] 0-2 [facility] Thyrotropin [Units/volume] i n Serum or PlasmaOrdered By: Eduardo Swain on 12-11-2022 TSH Qn 1.24 m[IU]/L 0.45-5.33 [facility] Triglyceride [Mass/volume] i n Serum or PlasmaOrdered By: Eduardo Swain on 12-11-2022 Triglyceride [Mass/Vol] 66 mg/dL 0-149 [facility] Comment on above: TRIG ATP III CLASSIF ICATIONTRIG less than 150 mg/dL NormalTRIG 150-199 mg/dL Borderline highTRIG 200-500 mg/dL High TRIG greater than 500 mg/dL Very highStandard traceable to the Center for Disease Conrtrol and Prevention (CDC) test method. Urea nitrogen [Mass/volume] in Serum or PlasmaOrdered By: Ke Cage on 12-11-2022 Urea nitrogen [Mass/Vol] 7 mg/dL 7-25 [facility] Urine appearanceOrdered By: Ke Cage on 12-11-2022 Appearance (U) Slightly cloudy Clear [facility] Urine bacteria detection by automated methodOrdered By: Ke Cage on 12-11-2022 Bacteria Auto Ql (U) None seen None Seen [facility] Urine colorOrdered By: Ke Cage on 12-11-2022 Color (U) Yellow Yellow [facility] Urine culture routineOrdered By: Ke Cage on 12-11-2022 Bacteria identified Cx Nom (U) 2 Days [facility] Urine glucose measurement by automated test strip (mass/volume)Ordered By: Ke Cgae on 12-11-2022 Glucose Auto test strip (U) [Mass/Vol] Normal mg/dL Normal [facility] Urine hemoglobin detection b y automated test stripOrdered By: Ke Cage on 12-11-2022 Hemoglobin Auto test strip Ql (U) Negative Negative [facility] Urine leukocyte esterase det ection by automated test stripOrdered By: Ke Cage on 12-11-2022 Leukocyte esterase Auto test strip Ql (U) 2+ Negative [facility] Urine nitrite detection by a utomated test stripOrdered By: Ke Cage on 12-11-2022 Nitrite Auto test strip Ql (U) Negative Negative [facility] Urobilinogen Auto test strip (U) [Mass/Vol]Ordered By: Ke Cage on 12-11-2022 Urobilinogen (U) [Mass/Vol] Normal mg/dL Normal [facility] Vitamin D+Metabolites [Mass/ volume] in Serum or PlasmaOrdered By: Eduardo Swain on 12-11-2022 Vitamin D+Metabolites [Mass/Vol] 36.5 ng/mL 30-100 [facility] Comment on above: VITAMIN D STATUS 25( [place])VITAMIN D RANGE (ng/mL) Deficient <20 Insufficient 20 to <30Sufficient 30 to 100Reference: Franklyn MF,Benjamin NC, Andreina MARQUEZ, et al. Evaluation,treatment, and prevention of vitamin D deficiency; an Endocrine Society clinical practice guideline. JCEM. 2010; 96(7):1911-30. WBC Auto (Bld) [#/Vol]Ordere d By: Ke Cage on 12-11-2022 WBC (Bld) [#/Vol] 5.8 10*3/uL 3.8-11.6 [facility] pH Auto test strip (U)Ordere d By: Ke Cage on 12-11-2022 pH (U) 1.015 [pH] 1.001-1.030 [facility] pH (U) 6.0 [pH] 5.0-9.0 [facility] Basophils Auto (Bld) [#/Vol] Ordered By: Afshan Hines on 11-01-2022 Basophils (Bld) [#/Vol] 0.0 10*3/uL 0.0-0.2 [facility] Basophils/100 WBC Auto (Bld) Ordered By: Afshan Hines on 11-01-2022 Basophils/100 WBC (Bld) 0.9 % . [facility] Calcium [Mass/volume] in Ser um or PlasmaOrdered By: Afshan Hines on 11-01-2022 Calcium [Mass/Vol] 8.8 mg/dL 8.6-10.3 [facility] Carbon dioxide, total [Moles /volume] in Serum or PlasmaOrdered By: Afshan Hines on 11-01-2022 CO2 [Moles/Vol] 26.4 mmol/L 21.0-31.0 [facility] Chloride [Moles/volume] in S mac or PlasmaOrdered By: Afshan Hines on 11-01-2022 Chloride [Moles/Vol] 107 mmol/L 98-107 [facility] Creatinine [Mass/volume] in Serum or PlasmaOrdered By: Afshan Hines on 11-01-2022 Creatinine [Mass/Vol] 0.82 mg/dL 0.60-1.20 [facility] Eosinophils Auto (Bld) [#/Vo l]Ordered By: Afshan Hines on 11-01-2022 Eosinophils (Bld) [#/Vol] 0.2 10*3/uL 0.0-0.45 [facility] Eosinophils/100 WBC Auto (Bl d)Ordered By: Afshan Hines on 11-01-2022 Eosinophils/100 WBC (Bld) 4.2 % . [facility] Erythrocyte distribution wid th Auto (RBC) [Ratio]Ordered By: Afshan Hines on 11-01-2022 Erythrocyte distribution width (RBC) [Ratio] 12.9 % 11.9-15.3 [facility] Glucose [Mass/volume] in Ser um or PlasmaOrdered By: Afshan Hines on 11-01-2022 Glucose [Mass/Vol] 74 mg/dL 70-100 [facility] Comment on above: ADA recommended refe rence rangeRandom Glucose Reference Range is dependent on time and content of last meal. Glucose of more than 200 mg/dL in a nonstressed, ambulatory subject supports the diagnosis of Diabetes Mellitus. Hematocrit Auto (Bld) [Volum e fraction]Ordered By: Afshan Hines on 11-01-2022 Hematocrit (Bld) [Volume fraction] 37.5 % 34.0-46.4 [facility] Hemoglobin [Mass/volume] in BloodOrdered By: Afshan Hines on 11-01-2022 Hemoglobin (Bld) [Mass/Vol] 12.5 g/dL 11.8-15.4 [facility] Leukocytes [#/volume] correc nneka for nucleated erythrocytes in Blood by Automated counOrdered By: Afshan Hines on 11-01-2022 WBC corrected for nucl RBC Auto (Bld) [#/Vol] 5.1 10*3/uL 3.8-11.6 [facility] Lymphocytes Auto (Bld) [#/Vo l]Ordered By: Afshan Hines on 11-01-2022 Lymphocytes (Bld) [#/Vol] 1.8 10*3/uL 1.00-4.8 [facility] Lymphocytes/100 WBC Auto (Bl d)Ordered By: Afshan Hines on 11-01-2022 Lymphocytes/100 WBC (Bld) 34.7 % . [facility] MCH Auto (RBC) [Entitic mass ]Ordered By: Afshan Hines on 11-01-2022 MCH (RBC) [Entitic mass] 32.2 pg 24.7-34.3 [facility] MCHC Auto (RBC) [Mass/Vol]Or dered By: Afshan Hines on 11-01-2022 MCHC (RBC) [Mass/Vol] 33.4 g/dL 32.0-35.0 [facility] MCV Auto (RBC) [Entitic vol] Ordered By: Afshan Hines on 11-01-2022 MCV (RBC) [Entitic vol] 96.5 fL 80-100 [facility] Monocytes Auto (Bld) [#/Vol] Ordered By: Afshan Hines on 11-01-2022 Monocytes (Bld) [#/Vol] 0.3 10*3/uL 0.0-0.8 [facility] Monocytes/100 WBC Auto (Bld) Ordered By: Afshan Hines on 11-01-2022 Monocytes/100 WBC (Bld) 6.1 % . [facility] Neutrophils Auto (Bld) [#/Vo l]Ordered By: Afshan Hines on 11-01-2022 Neutrophils (Bld) [#/Vol] 2.8 10*3/uL 1.8-7.7 [facility] Neutrophils/100 WBC Auto (Bl d)Ordered By: Afshan Hines on 11-01-2022 Neutrophils/100 WBC (Bld) 54.1 % . [facility] No Panel InformationOrdered By: Afshan Hines on 11-01-2022 Estimated GFR (CKD-EPI) > 60.0 mL/Min [facility] Creatinine Clearance (Chem 114.96 [facility] Nucleated erythrocytes [Pres ence] in Blood by Automated countOrdered By: Afshan Hines on 11-01-2022 Nucleated RBC Auto Ql (Bld) 0.1 /100{WBC} 0-0.5 [facility] Platelet mean volume Auto (B ld) [Entitic vol]Ordered By: Afshan Hines on 11-01-2022 Platelet mean volume (Bld) [Entitic vol] 7.8 fL 6.3-10.7 [facility] Platelets Auto (Bld) [#/Vol] Ordered By: Afshan Hines on 11-01-2022 Platelets (Bld) [#/Vol] 184 10*3/uL 150-450 [facility] Potassium [Moles/volume] in Serum or PlasmaOrdered By: Afshan Hines on 11-01-2022 Potassium [Moles/Vol] 4.0 mmol/L 3.5-5.1 [facility] RBC Auto (Bld) [#/Vol]Ordere d By: Afshan Hines on 11-01-2022 RBC (Bld) [#/Vol] 3.89 10*6/uL 3.60-5.00 [facility] Serum or plasma anion gap de terminationOrdered By: Afshan Hines on 11-01-2022 Anion gap [Moles/Vol] 10.6 mmol/L 6.0-15.0 [facility] Sodium [Moles/volume] in Ser um or PlasmaOrdered By: Afshan Hines on 11-01-2022 Sodium [Moles/Vol] 140 mmol/L 136-145 [facility] Urea nitrogen [Mass/volume] in Serum or PlasmaOrdered By: Afshan Hines on 11-01-2022 Urea nitrogen [Mass/Vol] 14 mg/dL 7-25 [facility] Vitamin B12 ser/plasOrdered By: Afshan Hines on 11-01-2022 Cobalamin (Vitamin B12) [Mass/Vol] 205 pg/mL 180-914 [facility] WBC Auto (Bld) [#/Vol]Ordere d By: Afshan Hines on 11-01-2022 WBC (Bld) [#/Vol] 5.1 10*3/uL 3.8-11.6 [facility] Alanine aminotransferase [En zymatic activity/volume] in Serum or PlasmaOrdered By: Afshan Hines on 2022 ALT [Catalytic activity/Vol] 10 U/L 752 [facility] Albumin [Mass/volume] in Ser um or Plasma by Bromocresol green (BCG) dye binding methoOrdered By: Afshan Hines on 2022 Albumin BCG dye [Mass/Vol] 3.4 g/dL 3.5-5.7 [facility] Alkaline phosphatase [Enzyma tic activity/volume] in Serum or PlasmaOrdered By: Afshan Hines on 2022 ALP [Catalytic activity/Vol] 66 U/L 34-104 [facility] Aspartate aminotransferase [ Enzymatic activity/volume] in Serum or PlasmaOrdered By: Afshan Hines on 2022 AST [Catalytic activity/Vol] 15 U/L 13-39 [facility] Bilirubin.total [Mass/volume ] in Serum or PlasmaOrdered By: Afshan Hines on 2022 Bilirubin [Mass/Vol] 0.7 mg/dL 0.3-1.0 [facility] Globulin Calc (S) [Mass/Vol] Ordered By: Afshan Hines on 2022 Globulin (S) [Mass/Vol] 2.2 g/dL [facility] Protein [Mass/volume] in Ser um or PlasmaOrdered By: Afshan Hines on 2022 Protein [Mass/Vol] 5.6 g/dL 6.4-8.9 [facility] Serum or plasma albumin/glob ulin mass ratioOrdered By: Afshan Hines on 2022 Albumin/Globulin [Mass ratio] 1.5 {ratio} [facility] Cholesterol [Mass/volume] in Serum or PlasmaOrdered By: Nimesh Cerda on 10-29-2022 Cholesterol [Mass/Vol] 181 mg/dL 140-200 [facility] Comment on above: Chol less than 200 m g/dl low riskChol 201-239 mg/dl borderline riskChol 240 mg/dl and greater high risk Cholesterol in LDL Calc [Mas s/Vol]Ordered By: Nimesh Cerda on 10-29-2022 Cholesterol in LDL [Mass/Vol] 99 mg/dL 0-100 [facility] Comment on above: LDL ATP III CLASSIFI CATIONLDL less than 100 mg/dL OptimalLDL 100-129 mg/dL Near or above optimalLDL 130-159 mg/dL Borderline highLDL 160-189 mg/dL HighLDL greater than 189 mg/dL Very high Cholesterol in VLDL Calc [Ma ss/Vol]Ordered By: Nimesh Cerda on 10-29-2022 Cholesterol in VLDL [Mass/Vol] 18 mg/dL [facility] Serum or plasma high density lipoprotein (HDL) cholesterol measurementOrdered By: Nimesh Cerda on 10-29-2022 Cholesterol in HDL [Mass/Vol] 64 mg/dL 35-85 [facility] Comment on above: HDL CHOL ATP-III CLA SSIFICATION Cardiovascular RiskHDL > or equal to 60 mg/dL LOWHDL < 40 mg/dL HIGH Serum or plasma total choles terol/high density lipoprotein (HDL) cholesterol mass ratOrdered By: Nimesh Cerda on 10-29-2022 Cholesterol.total/Chol esterol in HDL [Mass ratio] 2.8 {ratio} <5.0 [facility] Thyrotropin [Units/volume] i n Serum or PlasmaOrdered By: Nimesh Cerda on 10-29-2022 TSH Qn 0.60 m[IU]/L 0.45-5.33 [facility] Triglyceride [Mass/volume] i n Serum or PlasmaOrdered By: Nimesh Cerda on 10-29-2022 Triglyceride [Mass/Vol] 92 mg/dL 0-149 [facility] Comment on above: TRIG ATP III CLASSIF ICATIONTRIG less than 150 mg/dL NormalTRIG 150-199 mg/dL Borderline highTRIG 200-500 mg/dL High TRIG greater than 500 mg/dL Very highStandard traceable to the Center for Disease Conrtrol and Prevention (CDC) test method. Vitamin D+Metabolites [Mass/ volume] in Serum or PlasmaOrdered By: Nimesh Cerda on 10-29-2022 Vitamin D+Metabolites [Mass/Vol] 26.3 ng/mL 30-100 [facility] Comment on above: VITAMIN D STATUS [...] 10-28-2022 ALT [Catalytic activity/Vol] 11 U/L 7-52 [facility] Albumin [Mass/volume] in Ser um or Plasma by Bromocresol green (BCG) dye binding methoOrdered By: Keven Florentino on 10-28-2022 Albumin BCG dye [Mass/Vol] 3.7 g/dL 3.5-5.7 [facility] Alkaline phosphatase [Enzyma tic activity/volume] in Serum or PlasmaOrdered By: Keven Florentino on 10-28-2022 ALP [Catalytic activity/Vol] 74 U/L 34-104 [facility] Amphetamine Screen Ql (U)Ord ered By: Keven Florentino on 10-28-2022 Amphetamines Ql (U) Negative Negative [facility] Aspartate aminotransferase [ Enzymatic activity/volume] in Serum or PlasmaOrdered By: Keven Florentino on 10-28-2022 AST [Catalytic activity/Vol] 15 U/L 13-39 [facility] Automated erythrocytes count in urine sediment (number/area)Ordered By: Keven Florentino on 10-28-2022 RBC Auto (Urine sed) [#/Area] 1-2 [HPF] 0-4 [facility] Automated leukocytes count i n urine sediment (number/area)Ordered By: Keven Florentino on 10-28-2022 WBC Auto (Urine sed) [#/Area] 10-19 [HPF] 0-4 [facility] Barbiturates [Presence] in U rine by Screen methodOrdered By: Keven Florentino on 10-28-2022 Barbiturates Screen Ql (U) Negative Negative [facility] Basophils Auto (Bld) [#/Vol] Ordered By: Keven Florentino on 10-28-2022 Basophils (Bld) [#/Vol] 0.0 10*3/uL 0.0-0.2 [facility] Basophils/100 WBC Auto (Bld) Ordered By: Keven Florentino on 10-28-2022 Basophils/100 WBC (Bld) 0.7 % . [facility] Benzodiazepines Screen Ql (U )Ordered By: Keven Florentino on 10-28-2022 Benzodiazepines Ql (U) Negative Negative [facility] Benzoylecgonine [Presence] i n Urine by Screen methodOrdered By: Keven Florentino on 10-28-2022 Benzoylecgonine Screen Ql (U) Negative Negative [facility] Bilirubin Test strip Ql (U)O rdered By: Keven Florentino on 10-28-2022 Bilirubin Ql (U) Negative Negative [facility] Bilirubin.total [Mass/volume ] in Serum or PlasmaOrdered By: Keven Florentino on 10-28-2022 Bilirubin [Mass/Vol] 0.5 mg/dL 0.3-1.0 [facility] Calcium [Mass/volume] in Ser um or PlasmaOrdered By: Keven Florentino on 10-28-2022 Calcium [Mass/Vol] 8.5 mg/dL 8.6-10.3 [facility] Cannabinoids [Presence] in U rine by Screen methodOrdered By: Keven Florentino on 10-28-2022 Cannabinoids Screen Ql (U) Negative Negative [facility] Comment on above: These are unconfirme d results and should not be used for legal purposes. Drug Cut-Off Concentration: AMPH 1000 ng/mL BOO 200 ng/mL HELGA 200 ng/mL COCM 300 ng/mL OP 300 ng/mL PCP 25 ng/mL THC 20 ng/mL Carbon dioxide, total [Moles /volume] in Serum or PlasmaOrdered By: Keven Florentino on 10-28-2022 CO2 [Moles/Vol] 24.6 mmol/L 21.0-31.0 [facility] Chloride [Moles/volume] in S mac or PlasmaOrdered By: Keven Florentino on 10-28-2022 Chloride [Moles/Vol] 109 mmol/L 98-107 [facility] Color Auto (U)Ordered By: Anibal red Mishel on 10-28-2022 Color (U) Dark yellow Yellow [facility] Creatinine [Mass/volume] in Serum or PlasmaOrdered By: Keven Florentino on 10-28-2022 Creatinine [Mass/Vol] 0.70 mg/dL 0.60-1.20 [facility] Eosinophils Auto (Bld) [#/Vo l]Ordered By: Keven Florentino on 10-28-2022 Eosinophils (Bld) [#/Vol] 0.2 10*3/uL 0.0-0.45 [facility] Eosinophils/100 WBC Auto (Bl d)Ordered By: Keven Florentino on 10-28-2022 Eosinophils/100 WBC (Bld) 3.9 % . [facility] Erythrocyte distribution wid th Auto (RBC) [Ratio]Ordered By: Keven Florentino on 10-28-2022 Erythrocyte distribution width (RBC) [Ratio] 13.0 % 11.9-15.3 [facility] Ethanol [Mass/volume] in Ser um or PlasmaOrdered By: Keven Florentino on 10-28-2022 Ethanol [Mass/Vol] mg/dL [facility] Ethanol [Mass/Vol] TNP [facility] Comment on above: Test not performed Globulin Calc (S) [Mass/Vol] Ordered By: Keven Florentino on 10-28-2022 Globulin (S) [Mass/Vol] 2.4 g/dL [facility] Glucose [Mass/volume] in Ser um or PlasmaOrdered By: Keven Florentino on 10-28-2022 Glucose [Mass/Vol] 91 mg/dL 70-100 [facility] Comment on above: ADA recommended refe rence rangeRandom Glucose Reference Range is dependent on time and content of last meal. Glucose of more than 200 mg/dL in a nonstressed, ambulatory subject supports the diagnosis of Diabetes Mellitus. HCG ( test) IA.rapi d Ql (U)Ordered By: Keven Florentino on 10-28-2022 HCG ( test) Ql (U) Negative [facility] Hematocrit Auto (Bld) [Volum e fraction]Ordered By: Keven Florentino on 10-28-2022 Hematocrit (Bld) [Volume fraction] 36.0 % 34.0-46.4 [facility] Hemoglobin [Mass/volume] in BloodOrdered By: Keven Florentino on 10-28-2022 Hemoglobin (Bld) [Mass/Vol] 12.1 g/dL 11.8-15.4 [facility] Ketones Auto test strip (U) [Mass/Vol]Ordered By: Keven Florentino on 10-28-2022 Ketones (U) [Mass/Vol] Trace Negative [facility] - UrinalysisOrder ed By: Keven Florentino on 10-28-2022 Hyaline casts LM Ql (Urine sed) 0-8 [LPF] 0-8 [facility] Leukocytes [#/volume] correc nneka for nucleated erythrocytes in Blood by Automated counOrdered By: Keven Florentino on 10-28-2022 WBC corrected for nucl RBC Auto (Bld) [#/Vol] 6.1 10*3/uL 3.8-11.6 [facility] Lymphocytes Auto (Bld) [#/Vo l]Ordered By: Keven Florentino on 10-28-2022 Lymphocytes (Bld) [#/Vol] 1.2 10*3/uL 1.00-4.8 [facility] Lymphocytes/100 WBC Auto (Bl d)Ordered By: Keven Florentino on 10-28-2022 Lymphocytes/100 WBC (Bld) 19.9 % . [facility] MCH Auto (RBC) [Entitic mass ]Ordered By: Keven Florentino on 10-28-2022 MCH (RBC) [Entitic mass] 32.4 pg 24.7-34.3 [facility] MCHC Auto (RBC) [Mass/Vol]Or dered By: Keven Florentino on 10-28-2022 MCHC (RBC) [Mass/Vol] 33.7 g/dL 32.0-35.0 [facility] MCV Auto (RBC) [Entitic vol] Ordered By: Keven Florentino on 10-28-2022 MCV (RBC) [Entitic vol] 96.1 fL 80-100 [facility] Monocyte distribution width [Entitic volume] in Blood by AutomatedOrdered By: Keven Florentino on 10-28-2022 Monocyte distribution width Auto (Bld) [Entitic vol] 17.88 % 0.00-20.00 [facility] Monocytes Auto (Bld) [#/Vol] Ordered By: Keven Florentino on 10-28-2022 Monocytes (Bld) [#/Vol] 0.4 10*3/uL 0.0-0.8 [facility] Monocytes/100 WBC Auto (Bld) Ordered By: Keven Florentino on 10-28-2022 Monocytes/100 WBC (Bld) 6.5 % . [facility] Neutrophils Auto (Bld) [#/Vo l]Ordered By: Keven Florentino on 10-28-2022 Neutrophils (Bld) [#/Vol] 4.2 10*3/uL 1.8-7.7 [facility] Neutrophils/100 WBC Auto (Bl d)Ordered By: Keven Florentino on 10-28-2022 Neutrophils/100 WBC (Bld) 69.0 % . [facility] Nitrite Test strip Ql (U)Ord ered By: Keven Florentino on 10-28-2022 Nitrite Ql (U) Negative Negative [facility] No Panel InformationOrdered By: Keven Florentino on 10-28-2022 Estimated GFR (CKD-EPI) > 60.0 mL/Min [facility] Creatinine Clearance (Chem 136.41 [facility] Nucleated erythrocytes [Pres ence] in Blood by Automated countOrdered By: Keven Florentino on 10-28-2022 Nucleated RBC Auto Ql (Bld) 0.2 /100{WBC} 0-0.5 [facility] Opiates [Presence] in Urine by Screen methodOrdered By: Keven Florentino on 10-28-2022 Opiates Screen Ql (U) Negative Negative [facility] Phencyclidine Screen Ql (U)O rdered By: Keven Florentino on 10-28-2022 Phencyclidine Ql (U) Negative Negative [facility] Platelet mean volume Auto (B ld) [Entitic vol]Ordered By: Keven Florentino on 10-28-2022 Platelet mean volume (Bld) [Entitic vol] 7.5 fL 6.3-10.7 [facility] Platelets Auto (Bld) [#/Vol] Ordered By: Keven Florentino on 10-28-2022 Platelets (Bld) [#/Vol] 177 10*3/uL 150-450 [facility] Potassium [Moles/volume] in Serum or PlasmaOrdered By: Keven Florentino on 10-28-2022 Potassium [Moles/Vol] 3.8 mmol/L 3.5-5.1 [facility] Protein Auto test strip (U) [Mass/Vol]Ordered By: Keven Florentino on 10-28-2022 Protein (U) [Mass/Vol] Negative Negative [facility] Protein [Mass/volume] in Ser um or PlasmaOrdered By: Keven Florentino on 10-28-2022 Protein [Mass/Vol] 6.1 g/dL 6.4-8.9 [facility] RBC Auto (Bld) [#/Vol]Ordere d By: Keven Florentino on 10-28-2022 RBC (Bld) [#/Vol] 3.74 10*6/uL 3.60-5.00 [facility] Serum or plasma albumin/glob ulin mass ratioOrdered By: Keven Florentino on 10-28-2022 Albumin/Globulin [Mass ratio] 1.5 {ratio} [facility] Serum or plasma anion gap de terminationOrdered By: Keven Florentino on 10-28-2022 Anion gap [Moles/Vol] 11.2 mmol/L 6.0-15.0 [facility] Sodium [Moles/volume] in Ser um or PlasmaOrdered By: Keven Florentino on 10-28-2022 Sodium [Moles/Vol] 141 mmol/L 136-145 [facility] Specific gravity Auto test s trip (U) [Rel density]Ordered By: Keven Florenitno on 10-28-2022 Specific gravity (U) [Rel density] 1.024 1.001-1.030 [facility] Squamous epithelial cells de tection in urine sediment by light microscopyOrdered By: Keven Florentino on 10-28-2022 Epithelial cells.squamous LM Ql (Urine sed) 5-9 [HPF] 0-2 [facility] Urea nitrogen [Mass/volume] in Serum or PlasmaOrdered By: Keven Florentino on 10-28-2022 Urea nitrogen [Mass/Vol] 15 mg/dL 7-25 [facility] Urine bacteria detection by automated methodOrdered By: Keven Florentino on 10-28-2022 Bacteria Auto Ql (U) None seen None Seen [facility] Urine clarity by refractomet ry automatedOrdered By: Keven Florentino on 10-28-2022 Clarity Refractometry automated (U) Clear Clear [facility] Urine culture routineOrdered By: Keven Florentino on 10-28-2022 Bacteria identified Cx Nom (U) 2 Days [facility] Urine glucose measurement by automated test strip (mass/volume)Ordered By: Keven Florentino on 10-28-2022 Glucose Auto test strip (U) [Mass/Vol] Normal mg/dL Normal [facility] Urine hemoglobin detection b y automated test stripOrdered By: Keven Florentino on 10-28-2022 Hemoglobin Auto test strip Ql (U) Negative Negative [facility] Urine leukocyte esterase det ection by automated test stripOrdered By: Keven Florentino on 10-28-2022 Leukocyte esterase Auto test strip Ql (U) 3+ Negative [facility] Urobilinogen Auto test strip (U) [Mass/Vol]Ordered By: Keven Florentino on 10-28-2022 Urobilinogen (U) [Mass/Vol] mg/dL Normal [facility] WBC Auto (Bld) [#/Vol]Ordere d By: Keven Florentino on 10-28-2022 WBC (Bld) [#/Vol] 6.1 10*3/uL 3.8-11.6 [facility] pH Auto test strip (U)Ordere d By: Keven Florentino on 10-28-2022 pH (U) 6.0 [pH] 5.0-9.0 [facility] Alanine aminotransferase [En zymatic activity/volume] in Serum or PlasmaOrdered By: Chelsie Cortez on 10-18-2022 ALT [Catalytic activity/Vol] 20 U/L 7-52 [facility] Albumin [Mass/volume] in Ser um or Plasma by Bromocresol green (BCG) dye binding methoOrdered By: Chelsie Cortez on 10-18-2022 Albumin BCG dye [Mass/Vol] 3.9 g/dL 3.5-5.7 [facility] Alkaline phosphatase [Enzyma tic activity/volume] in Serum or PlasmaOrdered By: Chelsie Cortez on 10-18-2022 ALP [Catalytic activity/Vol] 99 U/L 34-104 [facility] Aspartate aminotransferase [ Enzymatic activity/volume] in Serum or PlasmaOrdered By: Chelsie Cortez on 10-18-2022 AST [Catalytic activity/Vol] 20 U/L 13-39 [facility] Automated erythrocytes count in urine sediment (number/area)Ordered By: Chelsie Cortez on 10-18-2022 RBC Auto (Urine sed) [#/Area] 0-1 [HPF] 0-4 [facility] Automated leukocytes count i n urine sediment (number/area)Ordered By: Chelsie Cortez on 10-18-2022 WBC Auto (Urine sed) [#/Area] 20-49 [HPF] 0-4 [facility] Basophils Auto (Bld) [#/Vol] Ordered By: Chelsie Cortez on 10-18-2022 Basophils (Bld) [#/Vol] 0.0 10*3/uL 0.0-0.2 [facility] Basophils/100 WBC Auto (Bld) Ordered By: Chelsie Cortez on 10-18-2022 Basophils/100 WBC (Bld) 0.8 % . [facility] Bilirubin Test strip Ql (U)O rdered By: Chelsie Cortez on 10-18-2022 Bilirubin Ql (U) Negative Negative [facility] Bilirubin.direct [Mass/volum e] in Serum or PlasmaOrdered By: Chelsie Cortez on 10-18-2022 Bilirubin.direct [Mass/Vol] 0.10 mg/dL 0.03-0.18 [facility] Bilirubin.total [Mass/volume ] in Serum or PlasmaOrdered By: Chelsie Cortez on 10-18-2022 Bilirubin [Mass/Vol] 0.6 mg/dL 0.3-1.0 [facility] Calcium [Mass/volume] in Ser um or PlasmaOrdered By: Chelsie Cortez on 10-18-2022 Calcium [Mass/Vol] 8.8 mg/dL 8.6-10.3 [facility] Carbon dioxide, total [Moles /volume] in Serum or PlasmaOrdered By: Chelsie Cortez on 10-18-2022 CO2 [Moles/Vol] 26.5 mmol/L 21.0-31.0 [facility] Chloride [Moles/volume] in S mac or PlasmaOrdered By: Chelsie Cortez on 10-18-2022 Chloride [Moles/Vol] 107 mmol/L 98-107 [facility] Color Auto (U)Ordered By: Jose Cortez on 10-18-2022 Color (U) Yellow Yellow [facility] Creatinine [Mass/volume] in Serum or PlasmaOrdered By: Chelsie Cortez on 10-18-2022 Creatinine [Mass/Vol] 0.83 mg/dL 0.60-1.20 [facility] Eosinophils Auto (Bld) [#/Vo l]Ordered By: Chelsie Cortez on 10-18-2022 Eosinophils (Bld) [#/Vol] 0.1 10*3/uL 0.0-0.45 [facility] Eosinophils/100 WBC Auto (Bl d)Ordered By: Chelsie Cortez on 10-18-2022 Eosinophils/100 WBC (Bld) 1.2 % . [facility] Erythrocyte distribution wid th Auto (RBC) [Ratio]Ordered By: Chelsie Cortez on 10-18-2022 Erythrocyte distribution width (RBC) [Ratio] 13.1 % 11.9-15.3 [facility] Globulin Calc (S) [Mass/Vol] Ordered By: Chelsie Cortez on 10-18-2022 Globulin (S) [Mass/Vol] 2.8 g/dL [facility] Glucose [Mass/volume] in Ser um or PlasmaOrdered By: Chelsie Cortez on 10-18-2022 Glucose [Mass/Vol] 101 mg/dL 70-100 [facility] Comment on above: ADA recommended refe rence rangeRandom Glucose Reference Range is dependent on time and content of last meal. Glucose of more than 200 mg/dL in a nonstressed, ambulatory subject supports the diagnosis of Diabetes Mellitus. HCG ( test) IA.rapi d Ql (U)Ordered By: Chelsie Cortez on 10-18-2022 HCG ( test) Ql (U) Negative [facility] Hematocrit Auto (Bld) [Volum e fraction]Ordered By: Chelsie Cortez on 10-18-2022 Hematocrit (Bld) [Volume fraction] 35.1 % 34.0-46.4 [facility] Hemoglobin [Mass/volume] in BloodOrdered By: Chelsie Cortez on 10-18-2022 Hemoglobin (Bld) [Mass/Vol] 12.0 g/dL 11.8-15.4 [facility] Ketones Auto test strip (U) [Mass/Vol]Ordered By: Chelsie Cortez on 10-18-2022 Ketones (U) [Mass/Vol] Negative Negative [facility] - UrinalysisOrder ed By: Chelsie Cortez 10-18-2022 Hyaline casts LM Ql (Urine sed) 0-8 [LPF] 0-8 [facility] Leukocytes [#/volume] correc nneka for nucleated erythrocytes in Blood by Automated counOrdered By: Chelsie Cortez on 10-18-2022 WBC corrected for nucl RBC Auto (Bld) [#/Vol] 6.3 10*3/uL 3.8-11.6 [facility] Lipase [Enzymatic activity/v olume] in Serum or PlasmaOrdered By: Chelsie Cortez on 10-18-2022 Lipase [Catalytic activity/Vol] 42.0 U/L 11.0-82.0 [facility] Lymphocytes Auto (Bld) [#/Vo l]Ordered By: Chelsie Cortez on 10-18-2022 Lymphocytes (Bld) [#/Vol] 1.4 10*3/uL 1.00-4.8 [facility] Lymphocytes/100 WBC Auto (Bl d)Ordered By: Chelsie Cortez on 10-18-2022 Lymphocytes/100 WBC (Bld) 22.0 % . [facility] MCH Auto (RBC) [Entitic mass ]Ordered By: Chelsie Cortez on 10-18-2022 MCH (RBC) [Entitic mass] 33.0 pg 24.7-34.3 [facility] MCHC Auto (RBC) [Mass/Vol]Or dered By: Chelsie Cortez on 10-18-2022 MCHC (RBC) [Mass/Vol] 34.2 g/dL 32.0-35.0 [facility] MCV Auto (RBC) [Entitic vol] Ordered By: Chelsie Cortez on 10-18-2022 MCV (RBC) [Entitic vol] 96.5 fL 80-100 [facility] Magnesium [Mass/volume] in S mac or PlasmaOrdered By: Chelsie Cortez on 10-18-2022 Magnesium [Mass/Vol] 2.1 mg/dL 1.9-2.7 [facility] Monocytes Auto (Bld) [#/Vol] Ordered By: Chelsie Cortez on 10-18-2022 Monocytes (Bld) [#/Vol] 0.5 10*3/uL 0.0-0.8 [facility] Monocytes/100 WBC Auto (Bld) Ordered By: Chelsie Cortez on 10-18-2022 Monocytes/100 WBC (Bld) 7.2 % . [facility] Neutrophils Auto (Bld) [#/Vo l]Ordered By: Chelsie Cortez on 10-18-2022 Neutrophils (Bld) [#/Vol] 4.3 10*3/uL 1.8-7.7 [facility] Neutrophils/100 WBC Auto (Bl d)Ordered By: Chelsie Cortez on 10-18-2022 Neutrophils/100 WBC (Bld) 68.8 % . [facility] Nitrite Test strip Ql (U)Ord ered By: Chelsie Cortez on 10-18-2022 Nitrite Ql (U) Negative Negative [facility] No Panel InformationOrdered By: Chelsie Cortez on 10-18-2022 Estimated GFR (CKD-EPI) > 60.0 mL/Min [facility] Creatinine Clearance (Chem 115.47 [facility] Nucleated erythrocytes [Pres ence] in Blood by Automated countOrdered By: Chelsie Cortez on 10-18-2022 Nucleated RBC Auto Ql (Bld) 0.1 /100{WBC} 0-0.5 [facility] Platelet mean volume Auto (B ld) [Entitic vol]Ordered By: Chelsie Cortez on 10-18-2022 Platelet mean volume (Bld) [Entitic vol] 7.6 fL 6.3-10.7 [facility] Platelets Auto (Bld) [#/Vol] Ordered By: Chelsie Cortez on 10-18-2022 Platelets (Bld) [#/Vol] 170 10*3/uL 150-450 [facility] Potassium [Moles/volume] in Serum or PlasmaOrdered By: Chelsie Cortez on 10-18-2022 Potassium [Moles/Vol] 4.2 mmol/L 3.5-5.1 [facility] Protein Auto test strip (U) [Mass/Vol]Ordered By: Chelsie Cortez on 10-18-2022 Protein (U) [Mass/Vol] Negative Negative [facility] Protein [Mass/volume] in Ser um or PlasmaOrdered By: Chelsie Cortez on 10-18-2022 Protein [Mass/Vol] 6.7 g/dL 6.4-8.9 [facility] RBC Auto (Bld) [#/Vol]Ordere d By: Chelsie Cortez on 10-18-2022 RBC (Bld) [#/Vol] 3.64 10*6/uL 3.60-5.00 [facility] Serum or plasma albumin/glob ulin mass ratioOrdered By: Chelsie Cortez on 10-18-2022 Albumin/Globulin [Mass ratio] 1.4 {ratio} [facility] Serum or plasma anion gap de terminationOrdered By: Chelsie Cortez on 10-18-2022 Anion gap [Moles/Vol] 9.7 mmol/L 6.0-15.0 [facility] Serum or plasma non-glucuron idated bilirubin measurement (mass/volume)Ordered By: Chelsie Cortez on 10-18-2022 Bilirubin.indirect [Mass/Vol] 0.5 mg/dL [facility] Sodium [Moles/volume] in Ser um or PlasmaOrdered By: Chelsie Cortez on 10-18-2022 Sodium [Moles/Vol] 139 mmol/L 136-145 [facility] Specific gravity Auto test s trip (U) [Rel density]Ordered By: Chelsie Cortez on 10-18-2022 Specific gravity (U) [Rel density] 1.011 1.001-1.030 [facility] Squamous epithelial cells de tection in urine sediment by light microscopyOrdered By: Chelsie Cortez 10-18-2022 Epithelial cells.squamous LM Ql (Urine sed) 3-4 [HPF] 0-2 [facility] Urea nitrogen [Mass/volume] in Serum or PlasmaOrdered By: Chelsie Cortez 10-18-2022 Urea nitrogen [Mass/Vol] 9 mg/dL 7-25 [facility] Urine bacteria detection by automated methodOrdered By: Chelsie Cortez on 10-18-2022 Bacteria Auto Ql (U) None seen None Seen [facility] Urine clarity by refractomet ry automatedOrdered By: Chelsie Cortez 10-18-2022 Clarity Refractometry automated (U) Clear Clear [facility] Urine culture routineOrdered By: Chelsie Cortez 10-18-2022 Bacteria identified Cx Nom (U) 2 Days [facility] Urine glucose measurement by automated test strip (mass/volume)Ordered By: Chelsie Cortez on 10-18-2022 Glucose Auto test strip (U) [Mass/Vol] Normal mg/dL Normal [facility] Urine hemoglobin detection b y automated test stripOrdered By: Chelsie Cortez on 10-18-2022 Hemoglobin Auto test strip Ql (U) Negative Negative [facility] Urine leukocyte esterase det ection by automated test stripOrdered By: Chelsie Cortez on 10-18-2022 Leukocyte esterase Auto test strip Ql (U) 3+ Negative [facility] Urobilinogen Auto test strip (U) [Mass/Vol]Ordered By: Chelsie Cortez on 10-18-2022 Urobilinogen (U) [Mass/Vol] Normal mg/dL Normal [facility] WBC Auto (Bld) [#/Vol]Ordere d By: Chelsie Cortez on 10-18-2022 WBC (Bld) [#/Vol] 6.3 10*3/uL 3.8-11.6 [facility] pH Auto test strip (U)Ordere d By: Chelsie Cortez on 10-18-2022 pH (U) 5.5 [pH] 5.0-9.0 [facility] AMYLASEon 10-16-2022 Amylase [Catalytic activity/Vol] 42 U/L Normal 25-115 [facility] Comment on above: Performed By: #### C MP, LIPHarpreet, GRETTA #### [facility] [address] [place] [address] Dr. Kinjal Rivers CBC AUTO DIFFon 10-16-2022 BASO # 0.0 103/ul Normal 0.0-0.1 [facility] Comment on above: Performed By: #### C BC #### [facility] [address] [address] [address] Kinjal Rivers Basophils/100 WBC (Bld) 0.6 % Normal 0.2-2.0 [facility] Comment on above: Performed By: #### C BC #### [facility] [address] [place] [address] Dr. Kinjal Rivers EO # 0.1 103/ul Normal 0.0-0.7 [facility] Comment on above: Performed By: #### C BC #### [facility] [address] [place] [address] Dr. Kinjal Rivers Eosinophils/100 WBC (Bld) 2.1 % Normal 0.9-7.0 [facility] Comment on above: Performed By: #### C BC #### [facility] [address] [place] [address] Dr. Kinjal Rivers Erythrocyte distribution width (RBC) [Ratio] 12.4 % Normal 11.0-15.0 [facility] Comment on above: Performed By: #### C BC #### [facility] [address] [place] [address] Dr. Kinjal Rivers Hematocrit (Bld) [Volume fraction] 38.3 % Normal 36.0-48.0 [facility] Comment on above: Performed By: #### C BC #### [facility] [address] [place] [address] Dr. Kinjal Rivers Hemoglobin (Bld) [Mass/Vol] 12.8 g/dL Normal 12.0-16.0 [facility] Comment on above: Performed By: #### C BC #### [facility] [address] [place] [address] Dr. Kinjal Rivers IG # 0.02 10e3/ul Normal 0.00-0.03 [facility] Comment on above: Performed By: #### C BC #### [facility] [address] [place] [address] Dr. Kinjal Rivers IG % 0.3 % Normal 0.0-0.5 [facility] Comment on above: Performed By: #### C BC #### [facility] [address] [place] [address] Dr. Kinjal Rivers LYMPH # 1.5 103/ul Normal 1.2-3.8 [facility] Comment on above: Performed By: #### C BC #### [facility] [address] [place] [address] Dr. Kinjal Rivers Lymphocytes/100 WBC (Bld) 24.1 % Normal 20.5-60.0 [facility] Comment on above: Performed By: #### C BC #### [facility] [address] [place] [address] Dr. Kinjal Rivers MANUAL DIFF REQ NO Normal [facility] Comment on above: Performed By: #### C BC #### [facility] [address] [place] [address] Dr. Kinjal Rivers MCH (RBC) [Entitic mass] 32.7 pg Normal 26.7-34.0 [facility] Comment on above: Performed By: #### C BC #### [facility] [address] [place] [address] Dr. Kinjal Rivers MCHC (RBC) [Mass/Vol] 33.4 g/dL Normal 29.9-35.2 [facility] Comment on above: Performed By: #### C BC #### [facility] [address] [place] [address] Dr. Kinjal Rivers MCV (RBC) [Entitic vol] 97.7 fL Normal 81.0-99.0 [facility] Comment on above: Performed By: #### C BC #### [facility] [address] [place] [address] Dr. Kinjal Rivers MONO # 0.3 103/ul Normal 0.3-0.8 [facility] Comment on above: Performed By: #### C BC #### [facility] [address] [place] [address] Dr. Kinjal Rivers Monocytes/100 WBC (Bld) 5.5 % Normal 1.7-12.0 [facility] Comment on above: Performed By: #### C BC #### [facility] [address] [place] [address] Dr. Kinjal Rivers NEUT # 4.2 103/ul Normal 1.4-6.5 [facility] Comment on above: Performed By: #### C BC #### [facility] [address] [place] [address] Dr. Kinjal Rivers Neutrophils/100 WBC (Bld) 67.4 % Normal 43.0-75.0 [facility] Comment on above: Performed By: #### C BC #### [facility] [address] [place] [address] Dr. Kinjal Rivers Platelet mean volume (Bld) [Entitic vol] 9.2 fL Critically low 9.5-13.5 [facility] Comment on above: Performed By: #### C BC #### [facility] [address] [place] [address] Dr. Kinjal Rivers PLT 184 103/ul Normal 150-450 [facility] Comment on above: Performed By: #### C BC #### [facility] [address] [place] [address] Dr. Kinjal Rivers RBC 3.92 106/ul Critically low 4.20-5.40 [facility] Comment on above: Performed By: #### C BC #### [facility] [address] [place] [address] Dr. Kinjal Rivers WBC 6.2 103/ul Normal 4.0-11.0 [facility] Comment on above: Performed By: #### C BC #### [facility] [address] [place] [address] Dr. Kinjal Rivers CULTURE URINEon 10-16-2022 CULTURE URINE Culture Observations : LIGHT GROWTH OF MIXED GENITAL YOGESH. NO POTENTIAL PATHOGENS SEEN. Normal [facility] Comment on above: Performed By: #### U RCX #### [facility] [address] [place] [address] Dr. Kinjal Rivers ER URINE PROFILEon 3 Bilirubin Ql (U) Negative Normal NEGATIVE [facility] Comment on above: Performed By: #### U MICRO, ERUR #### [facility] [address] [place] [address] Dr. Kinjal Rivers Clarity (U) SL CLOUDY Abnormal CLEAR [facility] Comment on above: Performed By: #### U MICRO, ERUR #### [facility] [address] [place] [address] Dr. Kinjal Rivers Color (U) LT. YELLOW Normal YELLOW [facility] Comment on above: Performed By: #### U MICRO, ERUR #### [facility] [address] [place] [address] Dr. Kinjal Rivers ERUAHD A micrscopic examina tion will be performed if indicated. Normal [facility] Comment on above: Performed By: #### U MICRO, ERUR #### [facility] [address] [address] [address] Kinjal Rivers Glucose Ql (U) Negative Normal NEGATIVE [facility] Comment on above: Performed By: #### U MICRO, ERUR #### [facility] [address] [address] [address] Kinjal Rivers Hemoglobin Ql (U) Negative Normal NEGATIVE [facility] Comment on above: Performed By: #### U MICRO, ERUR #### [facility] [address] [address] [address] Kinjal Rivers Ketones Ql (U) Negative Normal NEGATIVE [facility] Comment on above: Performed By: #### U MICRO, ERUR #### [facility] [address] [place] [address] Dr. Kinjal Rivers LEUKOCYTES TRACE Abnormal NEGATIVE [facility] Comment on above: Performed By: #### U MICRO, ERUR #### [facility] [address] [place] [address] Dr. Kinjal Rivers Nitrite Ql (U) Negative Normal NEGATIVE [facility] Comment on above: Performed By: #### U MICRO, ERUR #### [facility] [address] [place] [address] Dr. Kinjal Rivers pH (U) 5.0 [pH] Normal 5-9 [facility] Comment on above: Performed By: #### U MICRO, ERUR #### [facility] [address] [address] [address] Kinjal Rivers SPEC GRAVITY 1.030 Abnormal 1.005-<=1.0 25 [facility] Comment on above: Performed By: #### U MICRO, ERUR #### [facility] [address] [place] [address] Dr. Kinjal Rivers UA PROTEIN Negative Normal NEGATIVE/ TRACE [facility] [facility] Comment on above: Performed By: #### U MICRO, ERUR #### [facility] [address] [place] [address] Dr. Kinjal Rivers UR MICRO IND INDICATED Normal [facility] Comment on above: Performed By: #### U MICRO, ERUR #### [facility] [address] [place] [address] Dr. Kinjal Rivers Urobilinogen Qn (U) 1.0 {José'U}/dL Normal 0.2 - 1. 0 [facility] Comment on above: Performed By: #### U MICRO, ERUR #### [facility] [address] [place] [address] Dr. Kinjal Rivers LIPASEon 10-16-2022 Lipase [Catalytic activity/Vol] 133.0 U/L Normal 73.0-393.0 [facility] Comment on above: Performed By: #### C MP, LIPA, GRETTA #### [facility] [address] [place] [address] Dr. Kinjal Rivers PROF 14(COMP METB)on 023 Albumin [Mass/Vol] 3.7 g/dL Normal 3.4-5.0 [facility] Comment on above: Performed By: #### C MP, LIPA, GRETTA #### [facility] [address] [place] [address] Dr. Kinjal Rivers Albumin/Globulin [Mass ratio] 1.0 {ratio} Normal [facility] Comment on above: Performed By: #### C MP, LIPA, GRETTA #### [facility] [address] [place] [address] Dr. Kinjal Rivers ALP [Catalytic activity/Vol] 101 U/L Normal 46-116 [facility] Comment on above: Performed By: #### C MP, LIPA, GRETTA #### [facility] [address] [place] [address] Dr. Kinjal Rivers ALT [Catalytic activity/Vol] 27 U/L Normal 14-59 [facility] Comment on above: Performed By: #### C MP, LIPA, GRETTA #### [facility] [address] [place] [address] Dr. Kinjal Rivers Anion gap [Moles/Vol] 13.4 mmol/L Normal [facility] Comment on above: Performed By: #### C MP, LIPA, GRETTA #### [facility] [address] [place] [address] Dr. Kinjal Rivers AST [Catalytic activity/Vol] 23 U/L Normal 15-37 [facility] Comment on above: Performed By: #### C MP, LIPA, GRETTA #### [facility] [address] [place] [address] Dr. Kinjal Rivers Bilirubin [Mass/Vol] 0.6 mg/dL Normal 0.2-1.0 [facility] Comment on above: Performed By: #### C MP, LIPA, GRETTA #### [facility] [address] [place] [address] Dr. Kinjal Rivers Calcium [Mass/Vol] 9.1 mg/dL Normal 8.5-10.1 [facility] Comment on above: Performed By: #### C MP, LIPA, GRETTA #### [facility] [address] [place] [address] Dr. Kinjal Rivers Chloride [Moles/Vol] 105 mmol/L Normal 98-107 [facility] Comment on above: Performed By: #### C MP, LIPA, GRETTA #### [facility] [address] [place] [address] Dr. Kinjal Rivers CO2 [Moles/Vol] 25.3 mmol/L Normal 21.0-32.0 [facility] Comment on above: Performed By: #### C MP, LIPA, GRETTA #### [facility] [address] [place] [address] Dr. Kinjal Rivers Creatinine [Mass/Vol] 0.96 mg/dL Normal 0.55-1.02 [facility] Comment on above: Performed By: #### C MP, LIPA, GRETTA #### [facility] [address] [place] [address] Dr. Kinjal Rivers EGFR-AF ARMENIAN >60 Normal >=60 [facility] Comment on above: Performed By: #### C MP, LIPA, GRETTA #### [facility] [address] [place] [address] Dr. Kinjal Rivers EGFR-NON AF ARMENIAN >60 Normal >=60 [facility] Comment on above: Performed By: #### C MP LIPA, GRETTA #### [facility] [address] [address] [address] Kinjal Rivers Globulin (S) [Mass/Vol] 3.6 g/dL Normal [facility] Comment on above: Performed By: #### C MP LIPA, GRETTA #### [facility] [address] [place] [address] Dr. Kinjal Rivers Glucose [Mass/Vol] 93 mg/dL Normal 74-106 [facility] Comment on above: Performed By: #### C WINSOME LIPA, GRETTA #### [facility] [address] [place] [address] Dr. Kinjal Rivers Potassium [Moles/Vol] 3.7 mmol/L Normal 3.5-5.1 [facility] Comment on above: Performed By: #### C WINSOME LIPA, GRETTA #### [facility] [address] [place] [address] Dr. Kinjal Rivers Protein [Mass/Vol] 7.3 g/dL Normal 6.4-8.2 [facility] Comment on above: Performed By: #### C WINSOME LIPA, GRETTA #### [facility] [address] [place] [address] Dr. Kinjal Rivers Sodium [Moles/Vol] 140 mmol/L Normal 136-145 [facility] Comment on above: Performed By: #### C MP LIPA, GRETTA #### [facility] [address] [place] [address] Dr. Kinjal Rivers Urea nitrogen [Mass/Vol] 9.0 mg/dL Normal 7.0-18.0 [facility] Comment on above: Performed By: #### C MP LIPA, GRETTA #### [facility] [address] [place] [address] Dr. Kinjal Rivers Urea nitrogen/Creatinine [Mass ratio] 9.4 mg/mg Normal [facility] Comment on above: Performed By: #### C MP LIPA, GRETTA #### [facility] [address] [address] [address] Kinjal Rivers URINE MICROSCOPIC ONLYon BACTERIA TRACE Abnormal NONE SEEN [facility] Comment on above: Performed By: #### U MICRO, ERUR #### [facility] [address] [place] [address] Dr. Kinjal Rivers Bacteria identified Cx Nom (U) INDICATED Normal [facility] Comment on above: Performed By: #### U MICRO, ERUR #### [facility] [address] [place] [address] Dr. Kinjal Rivers CAST NONE SEEN Normal NONE SEEN [facility] Comment on above: Performed By: #### U MICRO, ERUR #### [facility] [address] [place] [address] Dr. Kinjal Rivers Crystals LM Nom (Urine sed) NONE SEEN Normal NONE SEEN [facility] Comment on above: Performed By: #### U MICRO, ERUR #### [facility] [address] [place] [address] Dr. Kinjal Rivers Epithelial cells LM Ql (Urine sed) FEW Abnormal NONE SEEN /RARE [facility] Comment on above: Performed By: #### U MICRO, ERUR #### [facility] [address] [place] [address] Dr. Kinjal Rivers MUCOUS NONE SEEN Normal NONE SEEN [facility] Comment on above: Performed By: #### U MICRO, ERUR #### [facility] [address] [place] [address] Dr. Kinjal Rivers RBC NONE SEEN Abnormal 0-2 [facility] Comment on above: Performed By: #### U MICRO, ERUR #### [facility] [address] [place] [address] Dr. Kinjal Rivers WBC 2-5 Abnormal NONE SEEN [facility] Comment on above: Performed By: #### U MICRO, ERUR #### [facility] [address] [place] [address] Dr. Kinjal Rivers Activated partial thrombopla stin time (aPTT) in platelet poor plasma by coagulation aOrdered By: Michael Cerda on 09-28-2022 aPTT Coag (PPP) [Time] 24.9 s 25.1-36.5 [facility] Automated erythrocytes count in urine sediment (number/area)Ordered By: Michael Cerda on 09-28-2022 RBC Auto (Urine sed) [#/Area] 0-1 [HPF] 0-4 [facility] Automated leukocytes count i n urine sediment (number/area)Ordered By: Michael Cerda on 09-28-2022 WBC Auto (Urine sed) [#/Area] 10-19 [HPF] 0-4 [facility] Basophils Auto (Bld) [#/Vol] Ordered By: Michael Cerda on 09-28-2022 Basophils (Bld) [#/Vol] 0.0 10*3/uL 0.0-0.2 [facility] Basophils/100 WBC Auto (Bld) Ordered By: Michael Cerda on 09-28-2022 Basophils/100 WBC (Bld) 0.5 % . [facility] Bilirubin Test strip Ql (U)O rdered By: Michael Cerda on 09-28-2022 Bilirubin Ql (U) Negative Negative [facility] COVID CepheidOrdered By: Janee Cerda on 09-28-2022 SARS-CoV-2 (COVID-19) Ab IA Ql Negative Negative [facility] Comment on above: This is a duplicate inSilica Xpert Xpress CoV-2/Flu/RSV Plus RNA by RT-PCR result to be used for statistical tracking purpose only. SARS-CoV-2 (COVID-19) RNA CRISTINA+probe Ql (Unsp spec) [facility] Calcium [Mass/volume] in Ser um or PlasmaOrdered By: Michael Cerda on 09-28-2022 Calcium [Mass/Vol] 9.3 mg/dL 8.6-10.3 [facility] Carbon dioxide, total [Moles /volume] in Serum or PlasmaOrdered By: Michael Cerda on 09-28-2022 CO2 [Moles/Vol] 23.7 mmol/L 21.0-31.0 [facility] Chloride [Moles/volume] in S mac or PlasmaOrdered By: Michael Cerda on 09-28-2022 Chloride [Moles/Vol] 105 mmol/L 98-107 [facility] Color Auto (U)Ordered By: Lorene Cerda on 09-28-2022 Color (U) Yellow Yellow [facility] Creatine kinase [Enzymatic a ctivity/volume] in Serum or PlasmaOrdered By: Michael Cerda on 09-28-2022 CK [Catalytic activity/Vol] 60 U/L 30-223 [facility] Creatinine [Mass/volume] in Serum or PlasmaOrdered By: Michael Cerda on 09-28-2022 Creatinine [Mass/Vol] 0.81 mg/dL 0.60-1.20 [facility] Eosinophils Auto (Bld) [#/Vo l]Ordered By: Michael Cerda on 09-28-2022 Eosinophils (Bld) [#/Vol] 0.0 10*3/uL 0.0-0.45 [facility] Eosinophils/100 WBC Auto (Bl d)Ordered By: Michael Cerda on 09-28-2022 Eosinophils/100 WBC (Bld) 0.2 % . [facility] Erythrocyte distribution wid th Auto (RBC) [Ratio]Ordered By: Michael Cerda on 09-28-2022 Erythrocyte distribution width (RBC) [Ratio] 13.5 % 11.9-15.3 [facility] Glucose [Mass/volume] in Ser um or PlasmaOrdered By: Michael Cerda on 09-28-2022 Glucose [Mass/Vol] 103 mg/dL 70-100 [facility] Comment on above: ADA recommended refe rence rangeRandom Glucose Reference Range is dependent on time and content of last meal. Glucose of more than 200 mg/dL in a nonstressed, ambulatory subject supports the diagnosis of Diabetes Mellitus. Hematocrit Auto (Bld) [Volum e fraction]Ordered By: Michael Cerda on 09-28-2022 Hematocrit (Bld) [Volume fraction] 38.9 % 34.0-46.4 [facility] Hemoglobin [Mass/volume] in BloodOrdered By: Michael Cerda on 09-28-2022 Hemoglobin (Bld) [Mass/Vol] 13.2 g/dL 11.8-15.4 [facility] Ketones Auto test strip (U) [Mass/Vol]Ordered By: Michael Cerda on 09-28-2022 Ketones (U) [Mass/Vol] Negative Negative [facility] - CoagulationOrde red By: Michael Cerda on 09-28-2022 PT Coag (PPP) [Time] 12.0 s 9.0-12.9 [facility] - UrinalysisOrder ed By: Michael Cerda on 09-28-2022 Hyaline casts LM Ql (Urine sed) 0-8 [LPF] 0-8 [facility] Leukocytes [#/volume] correc nneka for nucleated erythrocytes in Blood by Automated counOrdered By: Michael Cerda on 09-28-2022 WBC corrected for nucl RBC Auto (Bld) [#/Vol] 5.1 10*3/uL 3.8-11.6 [facility] Lymphocytes Auto (Bld) [#/Vo l]Ordered By: Michael Cerda on 09-28-2022 Lymphocytes (Bld) [#/Vol] 0.6 10*3/uL 1.00-4.8 [facility] Lymphocytes/100 WBC Auto (Bl d)Ordered By: Michael Cerda on 09-28-2022 Lymphocytes/100 WBC (Bld) 11.0 % . [facility] MCH Auto (RBC) [Entitic mass ]Ordered By: Michael Cerda on 09-28-2022 MCH (RBC) [Entitic mass] 33.0 pg 24.7-34.3 [facility] MCHC Auto (RBC) [Mass/Vol]Or dered By: Michael Cerda on 09-28-2022 MCHC (RBC) [Mass/Vol] 34.0 g/dL 32.0-35.0 [facility] MCV Auto (RBC) [Entitic vol] Ordered By: Michael Cerda on 09-28-2022 MCV (RBC) [Entitic vol] 97.0 fL 80-100 [facility] Monocyte distribution width [Entitic volume] in Blood by AutomatedOrdered By: Michael Cerda on 09-28-2022 Monocyte distribution width Auto (Bld) [Entitic vol] 24.75 % 0.00-20.00 [facility] Comment on above: For adults in ED, W > 20.0 may be associated with a higher risk of sepsis during the first 12 hrs of hospital admission Monocytes Auto (Bld) [#/Vol] Ordered By: Michael Cerda on 09-28-2022 Monocytes (Bld) [#/Vol] 0.3 10*3/uL 0.0-0.8 [facility] Monocytes/100 WBC Auto (Bld) Ordered By: Michael Cerda on 09-28-2022 Monocytes/100 WBC (Bld) 5.8 % . [facility] Natriuretic peptide B [Mass/ Vol]Ordered By: Michael Cerda on 09-28-2022 Natriuretic peptide B (Bld) [Mass/Vol] 27.0 pg/mL 5-100 [facility] Neutrophils Auto (Bld) [#/Vo l]Ordered By: Michael Cerda on 09-28-2022 Neutrophils (Bld) [#/Vol] 4.2 10*3/uL 1.8-7.7 [facility] Neutrophils/100 WBC Auto (Bl d)Ordered By: Michael Cerda on 09-28-2022 Neutrophils/100 WBC (Bld) 82.5 % . [facility] Nitrite Test strip Ql (U)Ord ered By: Michael Cerda on 09-28-2022 Nitrite Ql (U) Negative Negative [facility] No Panel InformationOrdered By: Michael Cerda on 09-28-2022 D-Dimer Quantitative (PE/DVT) 560 ng/mL 0-243 [facility] Comment on above: The reference range [...] conditions. Estimated GFR (CKD-EPI) > 60.0 mL/Min [facility] Creatinine Clearance (Chem 119.50 [facility] Nucleated erythrocytes [Pres ence] in Blood by Automated countOrdered By: Michael Cerda on 09-28-2022 Nucleated RBC Auto Ql (Bld) 0.1 /100{WBC} 0-0.5 [facility] Platelet mean volume Auto (B ld) [Entitic vol]Ordered By: Michael Cerda on 09-28-2022 Platelet mean volume (Bld) [Entitic vol] 7.4 fL 6.3-10.7 [facility] Platelet poor plasma interna tional normalized ratio (INR) by coagulation assay (relatOrdered By: Michael Cerda on 09-28-2022 INR Coag (PPP) [Relative time] 1.0 {INR} [facility] Comment on above: INR Therapeutic Rang [...] 09-28-2022 Platelets (Bld) [#/Vol] 197 10*3/uL 150-450 [facility] Potassium [Moles/volume] in Serum or PlasmaOrdered By: Michael Cerda on 09-28-2022 Potassium [Moles/Vol] 3.7 mmol/L 3.5-5.1 [facility] Protein Auto test strip (U) [Mass/Vol]Ordered By: Michael Cerda on 09-28-2022 Protein (U) [Mass/Vol] Negative Negative [facility] RBC Auto (Bld) [#/Vol]Ordere d By: Michael Cerda on 09-28-2022 RBC (Bld) [#/Vol] 4.01 10*6/uL 3.60-5.00 [facility] Serum or plasma anion gap de terminationOrdered By: Michael Cerda on 09-28-2022 Anion gap [Moles/Vol] 13.0 mmol/L 6.0-15.0 [facility] Sodium [Moles/volume] in Ser um or PlasmaOrdered By: Michael Cerda on 09-28-2022 Sodium [Moles/Vol] 138 mmol/L 136-145 [facility] Specific gravity Auto test s trip (U) [Rel density]Ordered By: Michael Cerda on 09-28-2022 Specific gravity (U) [Rel density] 1.015 1.001-1.030 [facility] Squamous epithelial cells de tection in urine sediment by light microscopyOrdered By: Michael Cerda on 09-28-2022 Epithelial cells.squamous LM Ql (Urine sed) 3-4 [HPF] 0-2 [facility] Troponin I.cardiac [Mass/vol ume] in Serum or Plasma by Detection limit <= 0.01 ng/Ordered By: Michael Cerda on 09-28-2022 Troponin I.cardiac DL <= 0.01 ng/mL [Mass/Vol] 5.1 pg/mL 0.0-15.0 [facility] Urea nitrogen [Mass/volume] in Serum or PlasmaOrdered By: Michael Cerda on 09-28-2022 Urea nitrogen [Mass/Vol] 11 mg/dL 7-25 [facility] Urine bacteria detection by automated methodOrdered By: Michael Cerda on 09-28-2022 Bacteria Auto Ql (U) None seen None Seen [facility] Urine clarity by refractomet ry automatedOrdered By: Michael Cerda on 09-28-2022 Clarity Refractometry automated (U) Clear Clear [facility] Urine culture routineOrdered By: Michael Cerda on 09-28-2022 Bacteria identified Cx Nom (U) 2 Days [facility] Urine glucose measurement by automated test strip (mass/volume)Ordered By: Michael Cerda on 09-28-2022 Glucose Auto test strip (U) [Mass/Vol] Normal mg/dL Normal [facility] Urine hemoglobin detection b y automated test stripOrdered By: Michael Cerda on 09-28-2022 Hemoglobin Auto test strip Ql (U) Negative Negative [facility] Urine leukocyte esterase det ection by automated test stripOrdered By: Michael Cerda on 09-28-2022 Leukocyte esterase Auto test strip Ql (U) 3+ Negative [facility] Urobilinogen Auto test strip (U) [Mass/Vol]Ordered By: Michael Cerda on 09-28-2022 Urobilinogen (U) [Mass/Vol] Normal mg/dL Normal [facility] WBC Auto (Bld) [#/Vol]Ordere d By: Michael Cerda on 09-28-2022 WBC (Bld) [#/Vol] 5.1 10*3/uL 3.8-11.6 [facility] pH Auto test strip (U)Ordere d By: Michael Cerda on 09-28-2022 pH (U) 6.5 [pH] 5.0-9.0 [facility] Cholesterol [Mass/volume] in Serum or PlasmaOrdered By: Nimesh Cerda on 09-04-2022 Cholesterol [Mass/Vol] 213 mg/dL 140-200 [facility] Comment on above: Chol less than 200 m g/dl low riskChol 201-239 mg/dl borderline riskChol 240 mg/dl and greater high risk Cholesterol in LDL Calc [Mas s/Vol]Ordered By: Nimesh Cerda on 09-04-2022 Cholesterol in LDL [Mass/Vol] 126 mg/dL 0-100 [facility] Comment on above: LDL ATP III CLASSIFI CATIONLDL less than 100 mg/dL OptimalLDL 100-129 mg/dL Near or above optimalLDL 130-159 mg/dL Borderline highLDL 160-189 mg/dL HighLDL greater than 189 mg/dL Very high Cholesterol in VLDL Calc [Ma ss/Vol]Ordered By: Nimesh Cerda on 09-04-2022 Cholesterol in VLDL [Mass/Vol] 19 mg/dL [facility] Serum or plasma high density lipoprotein (HDL) cholesterol measurementOrdered By: Nimesh Cerda on 09-04-2022 Cholesterol in HDL [Mass/Vol] 67 mg/dL 35-85 [facility] Comment on above: HDL CHOL ATP-III CLA SSIFICATION Cardiovascular RiskHDL > or equal to 60 mg/dL LOWHDL < 40 mg/dL HIGH Serum or plasma total choles terol/high density lipoprotein (HDL) cholesterol mass ratOrdered By: Nimesh Cerda on 09-04-2022 Cholesterol.total/Chol esterol in HDL [Mass ratio] 3.2 {ratio} <5.0 [facility] Thyrotropin [Units/volume] i n Serum or PlasmaOrdered By: Nimesh Cerda on 09-04-2022 TSH Qn 1.74 m[IU]/L 0.45-5.33 [facility] Triglyceride [Mass/volume] i n Serum or PlasmaOrdered By: Nimesh Cerda on 09-04-2022 Triglyceride [Mass/Vol] 98 mg/dL 0-149 [facility] Comment on above: TRIG ATP III CLASSIF ICATIONTRIG less than 150 mg/dL NormalTRIG 150-199 mg/dL Borderline highTRIG 200-500 mg/dL High TRIG greater than 500 mg/dL Very highStandard traceable to the Center for Disease Conrtrol and Prevention (CDC) test method. Vitamin D+Metabolites [Mass/ volume] in Serum or PlasmaOrdered By: Nimesh Cerda on 09-04-2022 Vitamin D+Metabolites [Mass/Vol] 31.0 ng/mL 30-100 [facility] Comment on above: VITAMIN D STATUS 25( [place])VITAMIN D RANGE (ng/mL) Deficient <20 Insufficient 20 to <30Sufficient 30 to 100Reference: Franklyn ABDI,Benjamin GRAF, Andreina MARQUEZ, et al. Evaluation,treatment, and prevention of vitamin D deficiency; an Endocrine Society clinical practice guideline. JCEM. 2010; 96(7):1911-30. Alanine aminotransferase [En zymatic activity/volume] in Serum or PlasmaOrdered By: Raffaele Ellsworth on 09-03-2022 ALT [Catalytic activity/Vol] 26 U/L 7-52 [facility] Albumin [Mass/volume] in Ser um or Plasma by Bromocresol green (BCG) dye binding methoOrdered By: Raffaele Ellsworth on 09-03-2022 Albumin BCG dye [Mass/Vol] 4.1 g/dL 3.5-5.7 [facility] Alkaline phosphatase [Enzyma tic activity/volume] in Serum or PlasmaOrdered By: Raffaele Ellsworth on 09-03-2022 ALP [Catalytic activity/Vol] 77 U/L 34-104 [facility] Amphetamine Screen Ql (U)Ord ered By: Raffaele Ellsworth on 09-03-2022 Amphetamines Ql (U) Negative Negative [facility] Aspartate aminotransferase [ Enzymatic activity/volume] in Serum or PlasmaOrdered By: Raffaele Ellsworth on 09-03-2022 AST [Catalytic activity/Vol] 29 U/L 13-39 [facility] Automated erythrocytes count in urine sediment (number/area)Ordered By: Raffaele Ellsworth on 09-03-2022 RBC Auto (Urine sed) [#/Area] 5-9 [HPF] 0-4 [facility] Automated leukocytes count i n urine sediment (number/area)Ordered By: Raffaele Ellsworth on 09-03-2022 WBC Auto (Urine sed) [#/Area] 10-19 [HPF] 0-4 [facility] Barbiturates [Presence] in U rine by Screen methodOrdered By: Raffaele Ellsworth on 09-03-2022 Barbiturates Screen Ql (U) Negative Negative [facility] Basophils Auto (Bld) [#/Vol] Ordered By: Raffaele Ellsworth on 09-03-2022 Basophils (Bld) [#/Vol] 0.0 10*3/uL 0.0-0.2 [facility] Basophils/100 WBC Auto (Bld) Ordered By: Raffaele Ellsworth on 09-03-2022 Basophils/100 WBC (Bld) 0.6 % . [facility] Benzodiazepines Screen Ql (U )Ordered By: Raffaele Ellsworth on 09-03-2022 Benzodiazepines Ql (U) Negative Negative [facility] Benzoylecgonine [Presence] i n Urine by Screen methodOrdered By: Raffaele Ellsworth on 09-03-2022 Benzoylecgonine Screen Ql (U) Negative Negative [facility] Bilirubin Test strip Ql (U)O rdered By: Raffaele Ellsworth on 09-03-2022 Bilirubin Ql (U) Negative Negative [facility] Bilirubin.total [Mass/volume ] in Serum or PlasmaOrdered By: Raffaele Ellsworth on 09-03-2022 Bilirubin [Mass/Vol] 0.4 mg/dL 0.3-1.0 [facility] Calcium [Mass/volume] in Ser um or PlasmaOrdered By: Raffaele Ellsworth on 09-03-2022 Calcium [Mass/Vol] 9.6 mg/dL 8.6-10.3 [facility] Cannabinoids [Presence] in U rine by Screen methodOrdered By: Raffaele Ellsworth on 09-03-2022 Cannabinoids Screen Ql (U) Negative Negative [facility] Comment on above: These are unconfirme d results and should not be used for legal purposes. Drug Cut-Off Concentration: AMPH 1000 ng/mL BOO 200 ng/mL HELGA 200 ng/mL COCM 300 ng/mL OP 300 ng/mL PCP 25 ng/mL THC 20 ng/mL Carbon dioxide, total [Moles /volume] in Serum or PlasmaOrdered By: Raffaele Ellsworth on 09-03-2022 CO2 [Moles/Vol] 23.8 mmol/L 21.0-31.0 [facility] Chloride [Moles/volume] in S mac or PlasmaOrdered By: Raffaele Ellsworth on 09-03-2022 Chloride [Moles/Vol] 107 mmol/L 98-107 [facility] Color Auto (U)Ordered By: Kapil Ellsworth on 09-03-2022 Color (U) Yellow Yellow [facility] Creatinine [Mass/volume] in Serum or PlasmaOrdered By: Raffaele Ellsworth on 09-03-2022 Creatinine [Mass/Vol] 0.76 mg/dL 0.60-1.20 [facility] Eosinophils Auto (Bld) [#/Vo l]Ordered By: Raffaele Ellsworth on 09-03-2022 Eosinophils (Bld) [#/Vol] 0.1 10*3/uL 0.0-0.45 [facility] Eosinophils/100 WBC Auto (Bl d)Ordered By: Raffaele Ellsworth on 09-03-2022 Eosinophils/100 WBC (Bld) 2.0 % . [facility] Erythrocyte distribution wid th Auto (RBC) [Ratio]Ordered By: Raffaele Ellsworth on 09-03-2022 Erythrocyte distribution width (RBC) [Ratio] 14.8 % 11.9-15.3 [facility] Ethanol [Mass/volume] in Ser um or PlasmaOrdered By: Raffaele Ellsworth on 09-03-2022 Ethanol [Mass/Vol] mg/dL [facility] Ethanol [Mass/Vol] TNP [facility] Comment on above: Test not performed Globulin Calc (S) [Mass/Vol] Ordered By: Raffaele Ellsworth on 09-03-2022 Globulin (S) [Mass/Vol] 2.9 g/dL [facility] Glucose [Mass/volume] in Ser um or PlasmaOrdered By: Raffaele Ellsworth on 09-03-2022 Glucose [Mass/Vol] 79 mg/dL 74-109 [facility] Comment on above: ADA recommended refe rence rangeRandom Glucose Reference Range is dependent on time and content of last meal. Glucose of more than 200 mg/dL in a nonstressed, ambulatory subject supports the diagnosis of Diabetes Mellitus. Hematocrit Auto (Bld) [Volum e fraction]Ordered By: Raffaele Ellsworth on 09-03-2022 Hematocrit (Bld) [Volume fraction] 38.3 % 34.0-46.4 [facility] Hemoglobin [Mass/volume] in BloodOrdered By: Raffaele Ellsworth on 09-03-2022 Hemoglobin (Bld) [Mass/Vol] 12.8 g/dL 11.8-15.4 [facility] Ketones Auto test strip (U) [Mass/Vol]Ordered By: Raffaele Ellsworth on 09-03-2022 Ketones (U) [Mass/Vol] Trace Negative Fi [facility] - Chemistry and C hemistry - challengeOrdered By: Raffaele Ellsworth on 09-03-2022 GFR/1.73 sq M.predicted MDRD (S/P/Bld) [Vol rate/Area] mL/min/{1.73_m2} [facility] Laboratory - UrinalysisOrder ed By: Raffaele Ellsworth on 09-03-2022 Hyaline casts LM Ql (Urine sed) 0-8 [LPF] 0-8 [facility] Leukocytes [#/volume] correc nneka for nucleated erythrocytes in Blood by Automated counOrdered By: Raffaele Ellsworth on 09-03-2022 WBC corrected for nucl RBC Auto (Bld) [#/Vol] 6.5 10*3/uL 3.8-11.6 [facility] Lymphocytes Auto (Bld) [#/Vo l]Ordered By: Raffaele Ellsworth on 09-03-2022 Lymphocytes (Bld) [#/Vol] 1.8 10*3/uL 1.00-4.8 [facility] Lymphocytes/100 WBC Auto (Bl d)Ordered By: Raffaele Ellsworth on 09-03-2022 Lymphocytes/100 WBC (Bld) 28.2 % . [facility] MCH Auto (RBC) [Entitic mass ]Ordered By: Raffaele Ellsworth on 09-03-2022 MCH (RBC) [Entitic mass] 32.7 pg 24.7-34.3 [facility] MCHC Auto (RBC) [Mass/Vol]Or dered By: Raffaele Ellsworth on 09-03-2022 MCHC (RBC) [Mass/Vol] 33.4 g/dL 32.0-35.0 [facility] MCV Auto (RBC) [Entitic vol] Ordered By: Raffaele Ellswotrh on 09-03-2022 MCV (RBC) [Entitic vol] 97.9 fL 80-100 [facility] Monocyte distribution width [Entitic volume] in Blood by AutomatedOrdered By: Raffaele Ellsworth on 09-03-2022 Monocyte distribution width Auto (Bld) [Entitic vol] 18.00 % 0.00-20.00 [facility] Monocytes Auto (Bld) [#/Vol] Ordered By: Raffaele Ellsworth on 09-03-2022 Monocytes (Bld) [#/Vol] 0.5 10*3/uL 0.0-0.8 [facility] Monocytes/100 WBC Auto (Bld) Ordered By: Raffaele Ellsworth on 09-03-2022 Monocytes/100 WBC (Bld) 7.1 % . [facility] Neutrophils Auto (Bld) [#/Vo l]Ordered By: Raffaele Ellsworth on 09-03-2022 Neutrophils (Bld) [#/Vol] 4.0 10*3/uL 1.8-7.7 [facility] Neutrophils/100 WBC Auto (Bl d)Ordered By: Raffaele Ellsworth on 09-03-2022 Neutrophils/100 WBC (Bld) 62.1 % . [facility] Nitrite Test strip Ql (U)Ord ered By: Raffaele Ellsworth on 09-03-2022 Nitrite Ql (U) Negative Negative [facility] No Panel InformationOrdered By: Raffaele Ellsworth on 09-03-2022 Pharmacy Creatinine Clearance (Chem 126.74 [facility] Nucleated erythrocytes [Pres ence] in Blood by Automated countOrdered By: Raffaele Ellsworth on 09-03-2022 Nucleated RBC Auto Ql (Bld) 0.0 /100{WBC} 0-0.5 [facility] Opiates [Presence] in Urine by Screen methodOrdered By: Raffaele Ellsworth on 09-03-2022 Opiates Screen Ql (U) Negative Negative [facility] Phencyclidine Screen Ql (U)O rdered By: Raffaele Ellsworth on 09-03-2022 Phencyclidine Ql (U) Negative Negative [facility] Platelet mean volume Auto (B ld) [Entitic vol]Ordered By: Raffaele Ellsworth on 09-03-2022 Platelet mean volume (Bld) [Entitic vol] 7.2 fL 6.3-10.7 [facility] Platelets Auto (Bld) [#/Vol] Ordered By: Raffaele Ellsworth on 09-03-2022 Platelets (Bld) [#/Vol] 241 10*3/uL 150-450 [facility] Potassium [Moles/volume] in Serum or PlasmaOrdered By: Raffaele Ellsworth on 09-03-2022 Potassium [Moles/Vol] 4.0 mmol/L 3.5-5.1 [facility] Protein Auto test strip (U) [Mass/Vol]Ordered By: Raffaele Ellsworth on 09-03-2022 Protein (U) [Mass/Vol] Negative Negative [facility] Protein [Mass/volume] in Ser um or PlasmaOrdered By: Raffaele Ellsworth on 09-03-2022 Protein [Mass/Vol] 7.0 g/dL 6.4-8.9 [facility] RBC Auto (Bld) [#/Vol]Ordere d By: Raffaele Ellsworth on 09-03-2022 RBC (Bld) [#/Vol] 3.91 10*6/uL 3.60-5.00 [facility] Serum or plasma albumin/glob ulin mass ratioOrdered By: Raffaele Ellsworth on 09-03-2022 Albumin/Globulin [Mass ratio] 1.4 {ratio} [facility] Serum or plasma anion gap de terminationOrdered By: Raffaele Ellsworth on 09-03-2022 Anion gap [Moles/Vol] 12.2 mmol/L 6.0-15.0 [facility] Sodium [Moles/volume] in Ser um or PlasmaOrdered By: Raffaele Ellsworth on 09-03-2022 Sodium [Moles/Vol] 139 mmol/L 136-145 [facility] Specific gravity Auto test s trip (U) [Rel density]Ordered By: Raffaele Ellsworth on 09-03-2022 Specific gravity (U) [Rel density] 1.020 1.001-1.030 [facility] Squamous epithelial cells de tection in urine sediment by light microscopyOrdered By: Raffaele Ellsworth on 09-03-2022 Epithelial cells.squamous LM Ql (Urine sed) 5-9 [HPF] 0-2 [facility] Urea nitrogen [Mass/volume] in Serum or PlasmaOrdered By: Raffaele Ellsworth on 09-03-2022 Urea nitrogen [Mass/Vol] 9 mg/dL 7-25 [facility] Urine bacteria detection by automated methodOrdered By: Raffaele Ellsworth on 09-03-2022 Bacteria Auto Ql (U) None seen None Seen [facility] Urine clarity by refractomet ry automatedOrdered By: Raffaele Ellsworth on 09-03-2022 Clarity Refractometry automated (U) Clear Clear [facility] Urine culture routineOrdered By: Raffaele Ellsworth on 09-03-2022 Bacteria identified Cx Nom (U) 2 Days [facility] Urine glucose measurement by automated test strip (mass/volume)Ordered By: Raffaele Ellsworth on 09-03-2022 Glucose Auto test strip (U) [Mass/Vol] Normal mg/dL Normal [facility] Urine hemoglobin detection b y automated test stripOrdered By: Raffaele Ellsworth on 09-03-2022 Hemoglobin Auto test strip Ql (U) Trace Negative [facility] Urine leukocyte esterase det ection by automated test stripOrdered By: Raffaele Ellsworth on 09-03-2022 Leukocyte esterase Auto test strip Ql (U) 2+ Negative [facility] Urobilinogen Auto test strip (U) [Mass/Vol]Ordered By: Raffaele Ellsworth on 09-03-2022 Urobilinogen (U) [Mass/Vol] Normal mg/dL Normal [facility] WBC Auto (Bld) [#/Vol]Ordere d By: Raffaele Ellsworth on 09-03-2022 WBC (Bld) [#/Vol] 6.5 10*3/uL 3.8-11.6 [facility] pH Auto test strip (U)Ordere d By: Raffaele Ellsworth on 09-03-2022 pH (U) 5.0 [pH] 5.0-9.0 [facility] Basophils Auto (Bld) [#/Vol] Ordered By: Urbano Palma on 08-13-2022 Basophils (Bld) [#/Vol] 0.0 10*3/uL 0.0-0.2 [facility] Basophils/100 WBC Auto (Bld) Ordered By: Urbano Palma on 08-13-2022 Basophils/100 WBC (Bld) 0.3 % . [facility] Eosinophils Auto (Bld) [#/Vo l]Ordered By: Urbano Palma on 08-13-2022 Eosinophils (Bld) [#/Vol] 0.0 10*3/uL 0.0-0.45 [facility] Eosinophils/100 WBC Auto (Bl d)Ordered By: Urbano Palma on 08-13-2022 Eosinophils/100 WBC (Bld) 0.4 % . [facility] Erythrocyte distribution wid th Auto (RBC) [Ratio]Ordered By: Urbano Palma on 08-13-2022 Erythrocyte distribution width (RBC) [Ratio] 17.2 % 11.9-15.3 [facility] Hematocrit Auto (Bld) [Volum e fraction]Ordered By: Urbano Palma on 08-13-2022 Hematocrit (Bld) [Volume fraction] 30.3 % 34.0-46.4 [facility] Hemoglobin [Mass/volume] in BloodOrdered By: Urbano Palma on 08-13-2022 Hemoglobin (Bld) [Mass/Vol] 10.2 g/dL 11.8-15.4 [facility] Leukocytes [#/volume] correc nneka for nucleated erythrocytes in Blood by Automated counOrdered By: Urbano Palma on 08-13-2022 WBC corrected for nucl RBC Auto (Bld) [#/Vol] 10.0 10*3/uL 3.8-11.6 [facility] Lymphocytes Auto (Bld) [#/Vo l]Ordered By: Urbano Palma on 08-13-2022 Lymphocytes (Bld) [#/Vol] 1.7 10*3/uL 1.00-4.8 [facility] Lymphocytes/100 WBC Auto (Bl d)Ordered By: Urbano Palma on 08-13-2022 Lymphocytes/100 WBC (Bld) 16.5 % . [facility] MCH Auto (RBC) [Entitic mass ]Ordered By: Urbano Palma on 08-13-2022 MCH (RBC) [Entitic mass] 32.9 pg 24.7-34.3 [facility] MCHC Auto (RBC) [Mass/Vol]Or dered By: Urbano Palma on 08-13-2022 MCHC (RBC) [Mass/Vol] 33.6 g/dL 32.0-35.0 [facility] MCV Auto (RBC) [Entitic vol] Ordered By: Urbano Palma on 08-13-2022 MCV (RBC) [Entitic vol] 97.8 fL 80-100 [facility] Monocytes Auto (Bld) [#/Vol] Ordered By: Urbano Palma on 08-13-2022 Monocytes (Bld) [#/Vol] 0.5 10*3/uL 0.0-0.8 [facility] Monocytes/100 WBC Auto (Bld) Ordered By: Urbano Palma on 08-13-2022 Monocytes/100 WBC (Bld) 5.4 % . [facility] Neutrophils Auto (Bld) [#/Vo l]Ordered By: Urbano Palma on 08-13-2022 Neutrophils (Bld) [#/Vol] 7.7 10*3/uL 1.8-7.7 [facility] Neutrophils/100 WBC Auto (Bl d)Ordered By: Urbano Palma on 08-13-2022 Neutrophils/100 WBC (Bld) 77.4 % . [facility] Nucleated erythrocytes [Pres ence] in Blood by Automated countOrdered By: Urbano Palma on 08-13-2022 Nucleated RBC Auto Ql (Bld) 0.0 /100{WBC} 0-0.5 [facility] Platelet mean volume Auto (B ld) [Entitic vol]Ordered By: Urbano Palma on 08-13-2022 Platelet mean volume (Bld) [Entitic vol] 8.2 fL 6.3-10.7 [facility] Platelets Auto (Bld) [#/Vol] Ordered By: Urbano Palma on 08-13-2022 Platelets (Bld) [#/Vol] 125 10*3/uL 150-450 [facility] RBC Auto (Bld) [#/Vol]Ordere d By: Urbano Palma on 08-13-2022 RBC (Bld) [#/Vol] 3.10 10*6/uL 3.60-5.00 [facility] WBC Auto (Bld) [#/Vol]Ordere d By: Urbano Palma on 08-13-2022 WBC (Bld) [#/Vol] 10.0 10*3/uL 3.8-11.6 [facility] Glucose Glucometer (dC) [M ass/Vol]Ordered By: Urbano Palma on 08-12-2022 Glucose [Mass/Vol] 82 mg/dL [facility] Comment on above: Random Glucose Refer ence Range is dependent on time and content of last meal. Glucose of more than 200 mg/dL in a nonstressed, ambulatory subject supports the diagnosis of Diabetes Mellitus. No Panel InformationOrdered By: Urbano Palma on 08-12-2022 Bedside Glucose Comment Glu2: cleaned meter [facility] Amphetamine Screen Ql (U)Ord ered By: Urbano Palma on 08-11-2022 Amphetamines Ql (U) Negative Negative [facility] Automated erythrocytes count in urine sediment (number/area)Ordered By: Urbano Palma on 08-11-2022 RBC Auto (Urine sed) [#/Area] 0-1 [HPF] 0-4 [facility] Automated leukocytes count i n urine sediment (number/area)Ordered By: Urbano Palma on 08-11-2022 WBC Auto (Urine sed) [#/Area] 50-100 [HPF] 0-4 [facility] Automated urine hyaline cast s count (number/volume)Ordered By: Urbano Palma on 08-11-2022 Hyaline casts Auto (U) [#/Vol] None seen [LPF] 0-1 [facility] Barbiturates [Presence] in U rineOrdered By: Urbano Palma on 08-11-2022 Barbiturates Ql (U) Negative Negative [facility] Benzodiazepines [Presence] i n UrineOrdered By: Urbano Palma on 08-11-2022 Benzodiazepines Ql (U) Negative Negative [facility] Bilirubin Test strip Ql (U)O rdered By: Urbano Palma on 08-11-2022 Bilirubin Ql (U) Negative Negative [facility] Casts typing in urine sedime nt by light microscopyOrdered By: Urbano Palma on 08-11-2022 Casts LM Nom (Urine sed) None seen [LPF] None Seen [facility] Color Auto (U)Ordered By: Mago Palma on 08-11-2022 Color (U) Yellow Yellow [facility] Glucose [Mass/volume] in Ser um or PlasmaOrdered By: Urbano Palma on 08-11-2022 Glucose [Mass/Vol] 69 mg/dL 70-100 [facility] Comment on above: ADA recommended refe rence rangeRandom Glucose Reference Range is dependent on time and content of last meal. Glucose of more than 200 mg/dL in a nonstressed, ambulatory subject supports the diagnosis of Diabetes Mellitus. Ketones Auto test strip (U) [Mass/Vol]Ordered By: Urbano Palma on 08-11-2022 Ketones (U) [Mass/Vol] Trace Negative [facility] - Drug toxicology Ordered By: Urbano Palma on 08-11-2022 Opiates Ql (U) Negative Negative [facility] Nitrite Test strip Ql (U)Ord ered By: Urbano Palma on 08-11-2022 Nitrite Ql (U) Negative Negative [facility] Phencyclidine Screen Ql (U)O rdered By: Urbano Palma on 08-11-2022 Phencyclidine Ql (U) Negative Negative [facility] Comment on above: These are unconfirme d results and should not be used for legal purposes. Drug Cut-Off Concentration: AMPH 1000 ng/mL BOO 200 ng/mL HELGA 200 ng/mL COCM 300 ng/mL OP 300 ng/mL PCP 25 ng/mL Protein Auto test strip (U) [Mass/Vol]Ordered By: Urbano Palma on 08-11-2022 Protein (U) [Mass/Vol] 30 mg/dL Negative Fi [facility] Reagin Ab [Presence] in Seru m by RPROrdered By: Urbano Palma on 08-11-2022 Reagin Ab RPR Ql (S) Non-Reactive Non Reactive [facility] Comment on above: Performed at: [facility] [employer] [place] [id number] Director: Prabhakar Warern PhD, Phone: [phone] Specific gravity Auto test s trip (U) [Rel density]Ordered By: Urbano Palma on 08-11-2022 Specific gravity (U) [Rel density] 1.021 1.001-1.030 [facility] Squamous epithelial cells de tection in urine sediment by light microscopyOrdered By: Urbano Palma on 08-11-2022 Epithelial cells.squamous LM Ql (Urine sed) 5-9 [HPF] 0-2 [facility] Urine bacteria detection by automated methodOrdered By: Urbano Palma on 08-11-2022 Bacteria Auto Ql (U) 1+ None Seen [facility] Urine clarity by refractomet ry automatedOrdered By: Urbano Palma on 08-11-2022 Clarity Refractometry automated (U) Cloudy Clear [facility] Urine cocaine detectionOrder ed By: Urbano Palma on 08-11-2022 Cocaine Ql (U) Negative Negative [facility] Urine culture routineOrdered By: Urbano Palma on 08-11-2022 Bacteria identified Cx Nom (U) Cinthya albicans [facility] Urine glucose measurement by automated test strip (mass/volume)Ordered By: Urbano Palma on 08-11-2022 Glucose Auto test strip (U) [Mass/Vol] Normal mg/dL Normal [facility] Urine hemoglobin detection b y automated test stripOrdered By: Urbano Palma on 08-11-2022 Hemoglobin Auto test strip Ql (U) Negative Negative [facility] Urine leukocyte esterase det ection by automated test stripOrdered By: Urbano Palma on 08-11-2022 Leukocyte esterase Auto test strip Ql (U) 3+ Negative [facility] Urobilinogen Auto test strip (U) [Mass/Vol]Ordered By: Urbano Palma on 08-11-2022 Urobilinogen (U) [Mass/Vol] Normal mg/dL Normal [facility] pH Auto test strip (U)Ordere d By: Urbano Palma on 08-11-2022 pH (U) 5.5 [pH] 5.0-9.0 [facility] Albumin [Mass/volume] in Ser um or PlasmaOrdered By: CANDICE Cody on 08-02-2022 Albumin [Mass/Vol] 2.7 g/dL 3.2-5.5 [facility] Basophils Auto (Bld) [#/Vol] Ordered By: CANDICE Cody on 08-02-2022 Basophils (Bld) [#/Vol] 0.0 10*3/uL 0.0-0.2 [facility] Basophils/100 WBC Auto (Bld) Ordered By: CANDICE Cody on 08-02-2022 Basophils/100 WBC (Bld) 0.3 % . [facility] Creatinine and Glomerular fi ltration rate.predicted panel (S/P/Bld)Ordered By: CANDICE Cody on 08-02-2022 Creatinine [Mass/Vol] 0.64 mg/dL 0.44-1.03 [facility] Eosinophils Auto (Bld) [#/Vo l]Ordered By: CANDICE Cody on 08-02-2022 Eosinophils (Bld) [#/Vol] 0.1 10*3/uL 0.0-0.45 [facility] Eosinophils/100 WBC Auto (Bl d)Ordered By: CANDICE Cody on 08-02-2022 Eosinophils/100 WBC (Bld) 0.8 % . [facility] Erythrocyte distribution wid th Auto (RBC) [Ratio]Ordered By: CANDICE Cody on 08-02-2022 Erythrocyte distribution width (RBC) [Ratio] 17.8 % 11.9-15.3 [facility] Estimated glomerular filtrat ion rate (GFR) non- AmericanOrdered By: JASON Cody on 08-02-2022 GFR/1.73 sq M.predicted among non-blacks MDRD (S/P/Bld) [Vol rate/Area] > 60 mL/Min [facility] Globulin Calc (S) [Mass/Vol] Ordered By: CANDICE Cody on 08-02-2022 Globulin (S) [Mass/Vol] 3.1 g/dL [facility] Hematocrit Auto (Bld) [Volum e fraction]Ordered By: CANDICE Cody on 08-02-2022 Hematocrit (Bld) [Volume fraction] 34.8 % 34.0-46.4 [facility] Hemoglobin [Mass/volume] in BloodOrdered By: CANDICE Cody on 08-02-2022 Hemoglobin (Bld) [Mass/Vol] 11.5 g/dL 11.8-15.4 [facility] Leukocytes [#/volume] correc nneka for nucleated erythrocytes in Blood by Automated counOrdered By: CANDICE Cody on 08-02-2022 WBC corrected for nucl RBC Auto (Bld) [#/Vol] 9.1 10*3/uL 3.8-11.6 [facility] Lymphocytes Auto (Bld) [#/Vo l]Ordered By: CANDICE Cody on 08-02-2022 Lymphocytes (Bld) [#/Vol] 1.6 10*3/uL 1.00-4.8 [facility] Lymphocytes/100 WBC Auto (Bl d)Ordered By: CANDICE Cody on 08-02-2022 Lymphocytes/100 WBC (Bld) 17.0 % . [facility] MCH Auto (RBC) [Entitic mass ]Ordered By: CANDICE Cody on 08-02-2022 MCH (RBC) [Entitic mass] 32.3 pg 24.7-34.3 [facility] MCHC Auto (RBC) [Mass/Vol]Or dered By: CANDICE Cody on 08-02-2022 MCHC (RBC) [Mass/Vol] 33.2 g/dL 32.0-35.0 [facility] MCV Auto (RBC) [Entitic vol] Ordered By: CANDICE Cody on 08-02-2022 MCV (RBC) [Entitic vol] 97.4 fL 80-100 [facility] Monocytes Auto (Bld) [#/Vol] Ordered By: CANDICE Cody on 08-02-2022 Monocytes (Bld) [#/Vol] 0.6 10*3/uL 0.0-0.8 [facility] Monocytes/100 WBC Auto (Bld) Ordered By: CANDICE Cody on 08-02-2022 Monocytes/100 WBC (Bld) 6.8 % . [facility] Neutrophils Auto (Bld) [#/Vo l]Ordered By: CANDICE Cody on 08-02-2022 Neutrophils (Bld) [#/Vol] 6.9 10*3/uL 1.8-7.7 [facility] Neutrophils/100 WBC Auto (Bl d)Ordered By: CANDICE Cody on 08-02-2022 Neutrophils/100 WBC (Bld) 75.1 % . [facility] No Panel InformationOrdered By: CANDICE Cody on 08-02-2022 Estimated GFR () > 60 mL/Min [facility] Comment on above: GFR estimated refere nce range: According to KDOQI guidelines, <60 ml/min/1.73m2 is sufficient to diagnose a patient with chronic kidney disease. Pharmacy Creatinine Clearance (Chem 152.15 [facility] Nucleated erythrocytes [Pres ence] in Blood by Automated countOrdered By: CANDICE Cody on 08-02-2022 Nucleated RBC Auto Ql (Bld) 0.0 /100{WBC} 0-0.5 [facility] Platelet mean volume Auto (B ld) [Entitic vol]Ordered By: CANDICE Cody on 08-02-2022 Platelet mean volume (Bld) [Entitic vol] 8.2 fL 6.3-10.7 [facility] Platelets Auto (Bld) [#/Vol] Ordered By: CANDICE Cody on 08-02-2022 Platelets (Bld) [#/Vol] 130 10*3/uL 150-450 [facility] Protein [Mass/volume] in Ser um or PlasmaOrdered By: CANDICE Cody on 08-02-2022 Protein [Mass/Vol] 5.8 g/dL 6.1-7.9 [facility] RBC Auto (Bld) [#/Vol]Ordere d By: CANDICE Cody on 08-02-2022 RBC (Bld) [#/Vol] 3.57 10*6/uL 3.60-5.00 [facility] Reagin Ab [Presence] in Seru m by RPROrdered By: CANDICE Cody on 08-02-2022 Reagin Ab RPR Ql (S) Non-Reactive Non Reactive [facility] Comment on above: Performed at: [facility] [employer] [id number] Director: Prabhakar Warren PhD, Phone: [phone] Serum or plasma alanine cox otransferase measurement without P-5'-P (enzymatic activiOrdered By: CANDICE Cody on 08-02-2022 ALT No additional P-5'-P [Catalytic activity/Vol] 12 U/L 10-60 [facility] Serum or plasma albumin/glob ulin mass ratioOrdered By: CANDICE Cody on 08-02-2022 Albumin/Globulin [Mass ratio] 0.9 {ratio} [facility] Serum or plasma alkaline sam sphatase measurement (enzymatic activity/volume)Ordered By: CANDICE Cody on 08-02-2022 ALP [Catalytic activity/Vol] 97 U/L 32-92 [facility] Serum or plasma anion gap de terminationOrdered By: CANDICE Cody on 08-02-2022 Anion gap [Moles/Vol] 11.3 mmol/L 6.0-15.0 [facility] Serum or plasma aspartate am inotransferase measurement (enzymatic activity/volume)Ordered By: CANDICE Cody on 08-02-2022 AST [Catalytic activity/Vol] 19 U/L 10-42 [facility] Serum or plasma calcium katie urement (mass/volume)Ordered By: CANDICE Cody on 08-02-2022 Calcium [Mass/Vol] 9.6 mg/dL 8.2-10.2 [facility] Serum or plasma chloride victorino surement (moles/volume)Ordered By: CANDICE Cody on 08-02-2022 Chloride [Moles/Vol] 107 mmol/L 95-114 [facility] Serum or plasma glucose katie urement (mass/volume)Ordered By: CANDICE Cody on 08-02-2022 Glucose [Mass/Vol] 84 mg/dL 70-100 [facility] Comment on above: ADA recommended refe rence rangeRandom Glucose Reference Range is dependent on time and content of last meal. Glucose of more than 200 mg/dL in a nonstressed, ambulatory subject supports the diagnosis of Diabetes Mellitus. Serum or plasma potassium me asurement (moles/volume)Ordered By: CANDICE Cody on 08-02-2022 Potassium [Moles/Vol] 3.8 mmol/L 3.5-5.1 [facility] Serum or plasma sodium measu rement (moles/volume)Ordered By: CANDICE Cody on 08-02-2022 Sodium [Moles/Vol] 135 mmol/L 136-146 [facility] Serum or plasma total biliru bin measurement (mass/volume)Ordered By: CANDICE Cody on 08-02-2022 Bilirubin [Mass/Vol] 0.6 mg/dL 0.3-1.2 [facility] Serum or plasma total carbon dioxide measurement (moles/volume)Ordered By: JASON Cody on 08-02-2022 CO2 [Moles/Vol] 20.5 mmol/L 22.0-30.0 [facility] Serum or plasma urea nitroge n measurement (mass/volume)Ordered By: CANDICE Cody on 08-02-2022 Urea nitrogen [Mass/Vol] 6 mg/dL 9-23 [facility] Serum or plasma uric acid me asurement (mass/volume)Ordered By: CANDICE Cody on 08-02-2022 Urate [Mass/Vol] 4.5 mg/dL 2.6-7.2 [facility] WBC Auto (Bld) [#/Vol]Ordere d By: CANDICE Cody on 08-02-2022 WBC (Bld) [#/Vol] 9.1 10*3/uL 3.8-11.6 [facility] Amphetamine Screen Ql (U)Ord ered By: CANDICE Cody on 08-01-2022 Amphetamines Ql (U) Negative Negative [facility] Automated erythrocytes count in urine sediment (number/area)Ordered By: CANDICE Cody on 08-01-2022 RBC Auto (Urine sed) [#/Area] 3-4 [HPF] 0-4 [facility] Automated leukocytes count i n urine sediment (number/area)Ordered By: CANDICE Cody on 08-01-2022 WBC Auto (Urine sed) [#/Area] 50-100 [HPF] 0-4 [facility] Barbiturates [Presence] in U rineOrdered By: CANDICE Cody on 08-01-2022 Barbiturates Ql (U) Negative Negative [facility] Benzodiazepines [Presence] i n UrineOrdered By: CANDICE Cody on 08-01-2022 Benzodiazepines Ql (U) Negative Negative [facility] Bilirubin Test strip Ql (U)O rdered By: CANDICE Cody on 08-01-2022 Bilirubin Ql (U) Negative Negative [facility] Color Auto (U)Ordered By: MD CAMILLE Cody on 08-01-2022 Color (U) Yellow Yellow [facility] Ketones Auto test strip (U) [Mass/Vol]Ordered By: CANDICE Cody on 08-01-2022 Ketones (U) [Mass/Vol] Negative Negative [facility] - Drug toxicology Ordered By: CANDICE Cody on 08-01-2022 Opiates Ql (U) Negative Negative [facility] Laboratory - UrinalysisOrder ed By: CANDICE Cody on 08-01-2022 Hyaline casts LM Ql (Urine sed) 0-8 [LPF] 0-8 [facility] Nitrite Test strip Ql (U)Ord ered By: CANDICE Cody on 08-01-2022 Nitrite Ql (U) Negative Negative [facility] Phencyclidine Screen Ql (U)O rdered By: CANDICE Cody on 08-01-2022 Phencyclidine Ql (U) Negative Negative [facility] Comment on above: These are unconfirme d results and should not be used for legal purposes. Drug Cut-Off Concentration: AMPH 1000 ng/mL BOO 200 ng/mL HELGA 200 ng/mL COCM 300 ng/mL OP 300 ng/mL PCP 25 ng/mL Protein Auto test strip (U) [Mass/Vol]Ordered By: CANDICE Cody on 08-01-2022 Protein (U) [Mass/Vol] Negative Negative [facility] Specific gravity Auto test s trip (U) [Rel density]Ordered By: CANDICE Cody on 08-01-2022 Specific gravity (U) [Rel density] 1.014 1.001-1.030 [facility] Squamous epithelial cells de tection in urine sediment by light microscopyOrdered By: CANDICE Cody on 08-01-2022 Epithelial cells.squamous LM Ql (Urine sed) 5-9 [HPF] 0-2 [facility] Urine bacteria detection by automated methodOrdered By: CANDICE Cody on 08-01-2022 Bacteria Auto Ql (U) None seen None Seen [facility] Urine clarity by refractomet ry automatedOrdered By: CANDICE Cody on 08-01-2022 Clarity Refractometry automated (U) Cloudy Clear [facility] Urine cocaine detectionOrder ed By: CANDICE Cody on 08-01-2022 Cocaine Ql (U) Negative Negative [facility] Urine culture routineOrdered By: CANDICE Cody on 08-01-2022 Bacteria identified Cx Nom (U) 2 Days [facility] Bacteria identified Cx Nom (U) 2 Days [facility] Urine glucose measurement by automated test strip (mass/volume)Ordered By: JASON Cody on 08-01-2022 Glucose Auto test strip (U) [Mass/Vol] Normal mg/dL Normal [facility] Urine hemoglobin detection b y automated test stripOrdered By: CANDICE Cody on 08-01-2022 Hemoglobin Auto test strip Ql (U) Negative Negative [facility] Urine leukocyte esterase det ection by automated test stripOrdered By: CANDICE Cody on 08-01-2022 Leukocyte esterase Auto test strip Ql (U) 4+ Negative [facility] Urobilinogen Auto test strip (U) [Mass/Vol]Ordered By: CANDICE Cody on 08-01-2022 Urobilinogen (U) [Mass/Vol] Normal mg/dL Normal [facility] pH Auto test strip (U)Ordere d By: CANDICE Cody on 08-01-2022 pH (U) 5.5 [pH] 5.0-9.0 [facility] S. agalactiae Org specific c x Ql (Unsp spec)Ordered By: Urbano Palma on 07-25-2022 Group B Streptococcus Culture Strep. agalactiae Grp B [facility] Group B Streptococcus Culture Strep. agalactiae Grp B [facility] Office Visit (Cardiology)on 07-22-2022 Follow-up visit Diagnoses/Problems [...] month follow-up with [facility]. 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 Personal review of ECG and cardiac data [...] Overweight AHA (more content not included)... Normal [employer] Tobacco Screening.on 023 Fall risk assessment a) No falls within the last year [facility] [employer] DO Work Phone: Tobacco use status CP b) No [facility] [email or web address] DO Work Phone: Tobacco Screening. Yes [facility] [employer] DO Work Phone: Amphetamine Screen Ql (U)Ord ered By: Michael Cerda on 07-15-2022 Amphetamines Ql (U) Negative Negative [facility] Automated erythrocytes count in urine sediment (number/area)Ordered By: Michael Cerda on 07-15-2022 RBC Auto (Urine sed) [#/Area] 0-1 [HPF] 0-4 [facility] Automated leukocytes count i n urine sediment (number/area)Ordered By: Michael Cerda on 07-15-2022 WBC Auto (Urine sed) [#/Area] 50-100 [HPF] 0-4 [facility] Barbiturates [Presence] in U rineOrdered By: Michael Cerda on 07-15-2022 Barbiturates Ql (U) Negative Negative [facility] Basophils Auto (Bld) [#/Vol] Ordered By: Michael Cerda on 07-15-2022 Basophils (Bld) [#/Vol] 0.0 10*3/uL 0.0-0.2 [facility] Basophils/100 WBC Auto (Bld) Ordered By: Michael Cerda on 07-15-2022 Basophils/100 WBC (Bld) 0.4 % . [facility] Benzodiazepines [Presence] i n UrineOrdered By: Michael Cerda on 07-15-2022 Benzodiazepines Ql (U) Negative Negative [facility] Bilirubin Test strip Ql (U)O rdered By: Michael Cerda on 07-15-2022 Bilirubin Ql (U) Negative Negative [facility] Body fluid albumin measureme nt (mass/volume)Ordered By: Michael Cerda on 07-15-2022 Albumin (Body fld) [Mass/Vol] 2.9 g/dL 3.2-5.5 [facility] Cannabinoids [Presence] in U rine by Screen methodOrdered By: Michael Cerda on 07-15-2022 Cannabinoids Screen Ql (U) Negative Negative [facility] Comment on above: These are unconfirme d results and should not be used for legal purposes. Drug Cut-Off Concentration: AMPH 1000 ng/mL BOO 200 ng/mL HELGA 200 ng/mL COCM 300 ng/mL OP 300 ng/mL PCP 25 ng/mL THC 20 ng/mL Cholesterol [Mass/volume] in Serum or PlasmaOrdered By: Eduardo Swain on 07-15-2022 Cholesterol [Mass/Vol] 250 mg/dL 140-200 [facility] Comment on above: Chol less than 200 m g/dl low riskChol 201-239 mg/dl borderline riskChol 240 mg/dl and greater high risk Cholesterol in LDL Calc [Mas s/Vol]Ordered By: Eduardo Swain on 07-15-2022 Cholesterol in LDL [Mass/Vol] 138 mg/dL 0-100 [facility] Comment on above: LDL ATP III CLASSIFI CATIONLDL less than 100 mg/dL OptimalLDL 100-129 mg/dL Near or above optimalLDL 130-159 mg/dL Borderline highLDL 160-189 mg/dL HighLDL greater than 189 mg/dL Very high Cholesterol in VLDL Calc [Ma ss/Vol]Ordered By: Eduadro Swain on 07-15-2022 Cholesterol in VLDL [Mass/Vol] 40 mg/dL [facility] Color Auto (U)Ordered By: Lorene Cerda on 07-15-2022 Color (U) Yellow Yellow [facility] Creatinine and Glomerular fi ltration rate.predicted panel (S/P/Bld)Ordered By: Michael Cerda on 07-15-2022 Creatinine [Mass/Vol] 0.66 mg/dL 0.44-1.03 [facility] Eosinophils Auto (Bld) [#/Vo l]Ordered By: Michael Cerda on 07-15-2022 Eosinophils (Bld) [#/Vol] 0.0 10*3/uL 0.0-0.45 [facility] Eosinophils/100 WBC Auto (Bl d)Ordered By: Michael Cerda on 07-15-2022 Eosinophils/100 WBC (Bld) 0.4 % . [facility] Erythrocyte distribution wid th Auto (RBC) [Ratio]Ordered By: Michael Cerda on 07-15-2022 Erythrocyte distribution width (RBC) [Ratio] 18.8 % 11.9-15.3 [facility] Estimated glomerular filtrat ion rate (GFR) non- AmericanOrdered By: Michael Cerda on 07-15-2022 GFR/1.73 sq M.predicted among non-blacks MDRD (S/P/Bld) [Vol rate/Area] > 60 mL/Min [facility] Globulin Calc (S) [Mass/Vol] Ordered By: Michael Cerda on 07-15-2022 Globulin (S) [Mass/Vol] 3.2 g/dL [facility] Hematocrit Auto (Bld) [Volum e fraction]Ordered By: Michael Cerda on 07-15-2022 Hematocrit (Bld) [Volume fraction] 34.4 % 34.0-46.4 [facility] Hemoglobin [Mass/volume] in BloodOrdered By: Michael Cerda on 07-15-2022 Hemoglobin (Bld) [Mass/Vol] 11.3 g/dL 11.8-15.4 [facility] Ketones Auto test strip (U) [Mass/Vol]Ordered By: Michael Cerda on 07-15-2022 Ketones (U) [Mass/Vol] 2+ Negative [facility] Ordered By: Michael Cerda on 07-15-2022 Opiates Ql (U) Negative Negative [facility] - UrinalysisOrder ed By: Michael Cerda on 07-15-2022 Hyaline casts LM Ql (Urine sed) 0-8 [LPF] 0-8 [facility] Leukocytes [#/volume] correc nneka for nucleated erythrocytes in Blood by Automated counOrdered By: Michael Cerda on 07-15-2022 WBC corrected for nucl RBC Auto (Bld) [#/Vol] 7.8 10*3/uL 3.8-11.6 [facility] Lymphocytes Auto (Bld) [#/Vo l]Ordered By: Michael Cerda on 07-15-2022 Lymphocytes (Bld) [#/Vol] 1.2 10*3/uL 1.00-4.8 [facility] Lymphocytes/100 WBC Auto (Bl d)Ordered By: Michael Cerda on 07-15-2022 Lymphocytes/100 WBC (Bld) 15.2 % . [facility] MCH Auto (RBC) [Entitic mass ]Ordered By: Michael Cerda on 07-15-2022 MCH (RBC) [Entitic mass] 31.8 pg 24.7-34.3 [facility] MCHC Auto (RBC) [Mass/Vol]Or dered By: Michael Cerda on 07-15-2022 MCHC (RBC) [Mass/Vol] 33.0 g/dL 32.0-35.0 [facility] MCV Auto (RBC) [Entitic vol] Ordered By: Michael Cerda on 07-15-2022 MCV (RBC) [Entitic vol] 96.4 fL 80-100 [facility] Monocyte distribution width [Entitic volume] in Blood by AutomatedOrdered By: Michael Cerda on 07-15-2022 Monocyte distribution width Auto (Bld) [Entitic vol] 19.01 % 0.00-20.00 [facility] Monocytes Auto (Bld) [#/Vol] Ordered By: Michael Cerda on 07-15-2022 Monocytes (Bld) [#/Vol] 0.4 10*3/uL 0.0-0.8 [facility] Monocytes/100 WBC Auto (Bld) Ordered By: Michael Cerda on 07-15-2022 Monocytes/100 WBC (Bld) 5.1 % . [facility] Neutrophils Auto (Bld) [#/Vo l]Ordered By: Michael Cerda on 07-15-2022 Neutrophils (Bld) [#/Vol] 6.1 10*3/uL 1.8-7.7 [facility] Neutrophils/100 WBC Auto (Bl d)Ordered By: Michael Cerda on 07-15-2022 Neutrophils/100 WBC (Bld) 78.9 % . [facility] Nitrite Test strip Ql (U)Ord ered By: Michael Cerda on 07-15-2022 Nitrite Ql (U) Negative Negative [facility] No Panel InformationOrdered By: Eduardo Swain on 07-15-2022 25-Hydroxy Vitamin D Total 38.8 ng/mL 30-100 [facility] Comment on above: VITAMIN D STATUS 25( [place])VITAMIN D RANGE (ng/mL) Deficient <20 Insufficient 20 to <30Sufficient 30 to 100Reference: Franklyn MF,Benjamin NC, Andreina MARQUEZ, et al. Evaluation,treatment, and prevention of vitamin D deficiency; an Endocrine Society clinical practice guideline. JCEM. 2010; 96(7):1911-30. No Panel InformationOrdered By: Michael Cerda on 07-15-2022 Estimated GFR () > 60 mL/Min [facility] Comment on above: GFR estimated refere nce range: According to KDOQI guidelines, <60 ml/min/1.73m2 is sufficient to diagnose a patient with chronic kidney disease. Pharmacy Creatinine Clearance (Chem 148.00 [facility] Nucleated erythrocytes [Pres ence] in Blood by Automated countOrdered By: Michael Cerda on 07-15-2022 Nucleated RBC Auto Ql (Bld) 0.1 /100{WBC} 0-0.5 [facility] Phencyclidine Screen Ql (U)O rdered By: Michael Cerda on 07-15-2022 Phencyclidine Ql (U) Negative Negative [facility] Platelet mean volume Auto (B ld) [Entitic vol]Ordered By: Michael Cerda on 07-15-2022 Platelet mean volume (Bld) [Entitic vol] 7.9 fL 6.3-10.7 [facility] Platelets Auto (Bld) [#/Vol] Ordered By: Michael Cerda on 07-15-2022 Platelets (Bld) [#/Vol] 157 10*3/uL 150-450 [facility] Protein Auto test strip (U) [Mass/Vol]Ordered By: Michael Cerda on 07-15-2022 Protein (U) [Mass/Vol] Negative Negative [facility] Protein [Mass/volume] in Ser um or PlasmaOrdered By: Michael Cerda on 07-15-2022 Protein [Mass/Vol] 6.1 g/dL 6.1-7.9 [facility] RBC Auto (Bld) [#/Vol]Ordere d By: Michael Cerda on 07-15-2022 RBC (Bld) [#/Vol] 3.57 10*6/uL 3.60-5.00 [facility] Serum or plasma alanine cox otransferase measurement without P-5'-P (enzymatic activiOrdered By: Michael Cerda on 07-15-2022 ALT No additional P-5'-P [Catalytic activity/Vol] 14 U/L 10-60 [facility] Serum or plasma albumin/glob ulin mass ratioOrdered By: Michael Cerda on 07-15-2022 Albumin/Globulin [Mass ratio] 0.9 {ratio} [facility] Serum or plasma alkaline sam sphatase measurement (enzymatic activity/volume)Ordered By: Michael Cerda on 07-15-2022 ALP [Catalytic activity/Vol] 83 U/L 32-92 [facility] Serum or plasma anion gap de terminationOrdered By: Michael Cerda on 07-15-2022 Anion gap [Moles/Vol] 13.3 mmol/L 6.0-15.0 [facility] Serum or plasma aspartate am inotransferase measurement (enzymatic activity/volume)Ordered By: Michael Cerda on 07-15-2022 AST [Catalytic activity/Vol] 22 U/L 10-42 [facility] Serum or plasma calcium katie urement (mass/volume)Ordered By: Michael Cerda on 07-15-2022 Calcium [Mass/Vol] 9.5 mg/dL 8.2-10.2 [facility] Serum or plasma chloride victorino surement (moles/volume)Ordered By: Michael Cerda on 07-15-2022 Chloride [Moles/Vol] 104 mmol/L 95-114 [facility] Serum or plasma ethanol katie urement (mass/volume)Ordered By: Michael Cerda on 07-15-2022 Ethanol [Mass/Vol] mg/dL [facility] Ethanol [Mass/Vol] TNP [facility] Comment on above: Test not performed Serum or plasma glucose katie urement (mass/volume)Ordered By: Michael Cerda on 07-15-2022 Glucose [Mass/Vol] 82 mg/dL 70-100 [facility] Comment on above: ADA recommended refe rence rangeRandom Glucose Reference Range is dependent on time and content of last meal. Glucose of more than 200 mg/dL in a nonstressed, ambulatory subject supports the diagnosis of Diabetes Mellitus. Serum or plasma high density lipoprotein (HDL) cholesterol measurementOrdered By: Eduardo Swain on 07-15-2022 Cholesterol in HDL [Mass/Vol] 72 mg/dL 35-85 [facility] Comment on above: HDL CHOL ATP-III CLA SSIFICATION Cardiovascular RiskHDL > or equal to 60 mg/dL LOWHDL < 40 mg/dL HIGH Serum or plasma potassium me asurement (moles/volume)Ordered By: Michael Cerda on 07-15-2022 Potassium [Moles/Vol] 3.6 mmol/L 3.5-5.1 [facility] Serum or plasma sodium measu rement (moles/volume)Ordered By: Michael Cerda on 07-15-2022 Sodium [Moles/Vol] 135 mmol/L 136-146 [facility] Serum or plasma total biliru bin measurement (mass/volume)Ordered By: Michael Cerda on 07-15-2022 Bilirubin [Mass/Vol] 0.6 mg/dL 0.3-1.2 [facility] Serum or plasma total carbon dioxide measurement (moles/volume)Ordered By: Michael Cerda on 07-15-2022 CO2 [Moles/Vol] 21.3 mmol/L 22.0-30.0 [facility] Serum or plasma total choles terol/high density lipoprotein (HDL) cholesterol mass ratOrdered By: Eduardo Swain on 07-15-2022 Cholesterol.total/Chol esterol in HDL [Mass ratio] 3.5 {ratio} <5.0 [facility] Serum or plasma urea nitroge n measurement (mass/volume)Ordered By: Michael Cerda on 07-15-2022 Urea nitrogen [Mass/Vol] 4 mg/dL 9-23 [facility] Specific gravity Auto test s trip (U) [Rel density]Ordered By: Michael Cerda on 07-15-2022 Specific gravity (U) [Rel density] 1.010 1.001-1.030 [facility] Squamous epithelial cells de tection in urine sediment by light microscopyOrdered By: Michael Cerda on 07-15-2022 Epithelial cells.squamous LM Ql (Urine sed) 5-9 [HPF] 0-2 [facility] TSH DL <= 0.005 mIU/L QnOrde red By: Eduardo Swain on 07-15-2022 TSH Qn 2.04 m[IU]/L 0.45-5.33 [facility] Triglyceride [Mass/volume] i n Serum or PlasmaOrdered By: Eduardo Swani on 07-15-2022 Triglyceride [Mass/Vol] 200 mg/dL 35-149 [facility] Comment on above: TRIG ATP III CLASSIF ICATIONTRIG less than 150 mg/dL NormalTRIG 150-199 mg/dL Borderline highTRIG 200-500 mg/dL High TRIG greater than 500 mg/dL Very highStandard traceable to the Center for Disease Conrtrol and Prevention (CDC) test method. Urine bacteria detection by automated methodOrdered By: Michael Cerda on 07-15-2022 Bacteria Auto Ql (U) None seen None Seen [facility] Urine clarity by refractomet ry automatedOrdered By: Michael Cerda on 07-15-2022 Clarity Refractometry automated (U) Cloudy Clear [facility] Urine cocaine detectionOrder ed By: Michael Cerda on 07-15-2022 Cocaine Ql (U) Negative Negative [facility] Urine culture routineOrdered By: Michael Cerda on 07-15-2022 Bacteria identified Cx Nom (U) 2 Days [facility] Urine glucose measurement by automated test strip (mass/volume)Ordered By: Michael Cerda on 07-15-2022 Glucose Auto test strip (U) [Mass/Vol] Normal mg/dL Normal [facility] Urine hemoglobin detection b y automated test stripOrdered By: Michael Cerda on 07-15-2022 Hemoglobin Auto test strip Ql (U) Negative Negative [facility] Urine leukocyte esterase det ection by automated test stripOrdered By: Michael Cerda on 07-15-2022 Leukocyte esterase Auto test strip Ql (U) 4+ Negative [facility] Urobilinogen Auto test strip (U) [Mass/Vol]Ordered By: Michael Cerda on 07-15-2022 Urobilinogen (U) [Mass/Vol] Normal mg/dL Normal [facility] WBC Auto (Bld) [#/Vol]Ordere d By: Michael Cerda on 07-15-2022 WBC (Bld) [#/Vol] 7.8 10*3/uL 3.8-11.6 [facility] pH Auto test strip (U)Ordere d By: Michael Cerda on 07-15-2022 pH (U) 5.5 [pH] 5.0-9.0 [facility] Basophils Auto (Bld) [#/Vol] Ordered By: Urbano Palma on 07-09-2022 Basophils (Bld) [#/Vol] 0.0 10*3/uL 0.0-0.2 [facility] Basophils/100 WBC Auto (Bld) Ordered By: Urbano Palma on 07-09-2022 Basophils/100 WBC (Bld) 0.4 % . [facility] Eosinophils Auto (Bld) [#/Vo l]Ordered By: Urbano Palma on 07-09-2022 Eosinophils (Bld) [#/Vol] 0.1 10*3/uL 0.0-0.45 [facility] Eosinophils/100 WBC Auto (Bl d)Ordered By: Urbano Palma on 07-09-2022 Eosinophils/100 WBC (Bld) 1.0 % . [facility] Erythrocyte distribution wid th Auto (RBC) [Ratio]Ordered By: Urbano Palma on 07-09-2022 Erythrocyte distribution width (RBC) [Ratio] 19.0 % 11.9-15.3 [facility] Hematocrit Auto (Bld) [Volum e fraction]Ordered By: Urbano Palma on 07-09-2022 Hematocrit (Bld) [Volume fraction] 37.4 % 34.0-46.4 [facility] Hemoglobin [Mass/volume] in BloodOrdered By: Urbano Palma on 07-09-2022 Hemoglobin (Bld) [Mass/Vol] 12.2 g/dL 11.8-15.4 [facility] Leukocytes [#/volume] correc nneka for nucleated erythrocytes in Blood by Automated counOrdered By: Urbano Palma on 07-09-2022 WBC corrected for nucl RBC Auto (Bld) [#/Vol] 8.1 10*3/uL 3.8-11.6 [facility] Lymphocytes Auto (Bld) [#/Vo l]Ordered By: Urbano Palma on 07-09-2022 Lymphocytes (Bld) [#/Vol] 1.2 10*3/uL 1.00-4.8 [facility] Lymphocytes/100 WBC Auto (Bl d)Ordered By: Urbano Palma on 07-09-2022 Lymphocytes/100 WBC (Bld) 14.9 % . [facility] MCH Auto (RBC) [Entitic mass ]Ordered By: Urbano Palma on 07-09-2022 MCH (RBC) [Entitic mass] 31.4 pg 24.7-34.3 [facility] MCHC Auto (RBC) [Mass/Vol]Or dered By: Urbano Palma on 07-09-2022 MCHC (RBC) [Mass/Vol] 32.7 g/dL 32.0-35.0 [facility] MCV Auto (RBC) [Entitic vol] Ordered By: Urbano Palma on 07-09-2022 MCV (RBC) [Entitic vol] 95.8 fL 80-100 [facility] Monocytes Auto (Bld) [#/Vol] Ordered By: Urbano Palma on 07-09-2022 Monocytes (Bld) [#/Vol] 0.4 10*3/uL 0.0-0.8 [facility] Monocytes/100 WBC Auto (Bld) Ordered By: Urbano Palma on 07-09-2022 Monocytes/100 WBC (Bld) 5.1 % . [facility] Neutrophils Auto (Bld) [#/Vo l]Ordered By: Urbano Palma on 07-09-2022 Neutrophils (Bld) [#/Vol] 6.3 10*3/uL 1.8-7.7 [facility] Neutrophils/100 WBC Auto (Bl d)Ordered By: Urbano Palma on 07-09-2022 Neutrophils/100 WBC (Bld) 78.6 % . [facility] Nucleated erythrocytes [Pres ence] in Blood by Automated countOrdered By: Urbano Palma on 07-09-2022 Nucleated RBC Auto Ql (Bld) 0.1 /100{WBC} 0-0.5 [facility] Platelet mean volume Auto (B ld) [Entitic vol]Ordered By: Urbano Palma on 07-09-2022 Platelet mean volume (Bld) [Entitic vol] 8.2 fL 6.3-10.7 [facility] Platelets Auto (Bld) [#/Vol] Ordered By: Urbano Palma on 07-09-2022 Platelets (Bld) [#/Vol] 180 10*3/uL 150-450 [facility] RBC Auto (Bld) [#/Vol]Ordere d By: Urbano Palma on 07-09-2022 RBC (Bld) [#/Vol] 3.91 10*6/uL 3.60-5.00 [facility] WBC Auto (Bld) [#/Vol]Ordere d By: Urbano Palma on 07-09-2022 WBC (Bld) [#/Vol] 8.1 10*3/uL 3.8-11.6 [facility] Serum or plasma glucose tole cecelia 3 hours panelOrdered By: Urbano Palma on 06-30-2022 Glucose tolerance 3 hours panel See comment [facility] Comment on above: FASTING 82 Col: 03/14 0616 1HR GLU 215 Col: 06/30/22 0800 2HR GLU 194 Col: 06/30/22 0901 3HR GLU 71 Col: 06/30/22 1000 Amphetamine Screen Ql (U)Ord ered By: DELANEY CARLISLE on 06-26-2022 Amphetamines Ql (U) Negative Negative [facility] Automated erythrocytes count in urine sediment (number/area)Ordered By: DELANEY CARLISLE on 06-26-2022 RBC Auto (Urine sed) [#/Area] 1-2 [HPF] 0-4 [facility] Automated leukocytes count i n urine sediment (number/area)Ordered By: DELANEY CARLISLE on 06-26-2022 WBC Auto (Urine sed) [#/Area] 50-100 [HPF] 0-4 [facility] Automated urine hyaline cast s count (number/volume)Ordered By: DELANEY CARLISLE on 06-26-2022 Hyaline casts Auto (U) [#/Vol] None seen [LPF] 0-1 [facility] Automated urine sediment claudia cium oxalate crystal count by microscopy (number/high powOrdered By: DELANEY CARLISLE on 06-26-2022 Calcium oxalate crystals LM.HPF (Urine sed) [#/Area] 3+ [HPF] [facility] Barbiturates [Presence] in U rineOrdered By: DELANEY CARLISLE on 06-26-2022 Barbiturates Ql (U) Negative Negative [facility] Benzodiazepines [Presence] i n UrineOrdered By: DELANEY CARLISLE on 06-26-2022 Benzodiazepines Ql (U) Negative Negative [facility] Bilirubin Test strip Ql (U)O rdered By: DELANEY CARLISLE on 06-26-2022 Bilirubin Ql (U) 1+ Negative [facility] Color Auto (U)Ordered By: VLAD CARLISLE on 06-26-2022 Color (U) Dark yellow Yellow [facility] fibronectinOrdered By: DELANEY CARLISLE on 06-26-2022 Fibronectin. (Vag fld) [Mass/Vol] Negative Negative [facility] Ketones Auto test strip (U) [Mass/Vol]Ordered By: DELANEY CARLISLE on 06-26-2022 Ketones (U) [Mass/Vol] 1+ Negative [facility] [facility] Ordered By: DELANEY CARLISLE on 06-26-2022 Opiates Ql (U) Negative Negative [facility] Nitrite Test strip Ql (U)Ord ered By: DELANEY CARLISLE on 06-26-2022 Nitrite Ql (U) Negative Negative [facility] No Panel InformationOrdered By: DELANEY CARLISLE on 06-26-2022 Membranes Rupture (PAMG-1) Negative Negative [facility] Phencyclidine Screen Ql (U)O rdered By: DELANEY CARLISLE on 06-26-2022 Phencyclidine Ql (U) Negative Negative [facility] Comment on above: These are unconfirme d results and should not be used for legal purposes. Drug Cut-Off Concentration: AMPH 1000 ng/mL BOO 200 ng/mL HELGA 200 ng/mL COCM 300 ng/mL OP 300 ng/mL PCP 25 ng/mL Protein Auto test strip (U) [Mass/Vol]Ordered By: DELANEY CARLISLE on 06-26-2022 Protein (U) [Mass/Vol] 30 mg/dL Negative [facility] Specific gravity Auto test s trip (U) [Rel density]Ordered By: DELANEY CARLISLE on 06-26-2022 Specific gravity (U) [Rel density] 1.029 1.001-1.030 [facility] Squamous epithelial cells de tection in urine sediment by light microscopyOrdered By: DELANEY CARLISLE on 06-26-2022 Epithelial cells.squamous LM Ql (Urine sed) 5-9 [HPF] 0-2 [facility] Urine bacteria detection by automated methodOrdered By: DELANEY CARLISLE on 06-26-2022 Bacteria Auto Ql (U) None seen None Seen [facility] Urine clarity by refractomet ry automatedOrdered By: DELANEY CALRISLE on 06-26-2022 Clarity Refractometry automated (U) Turbid Clear [facility] Urine cocaine detectionOrder ed By: DELANEY CARLISLE on 06-26-2022 Cocaine Ql (U) Negative Negative [facility] Urine culture routineOrdered By: DELANEY CARLISLE on 06-26-2022 Bacteria identified Cx Nom (U) Cinthya albicans [facility] Urine glucose measurement by automated test strip (mass/volume)Ordered By: DELANEY CARLISLE on 06-26-2022 Glucose Auto test strip (U) [Mass/Vol] Normal mg/dL Normal [facility] Urine hemoglobin detection b y automated test stripOrdered By: DELANEY CARLISLE on 06-26-2022 Hemoglobin Auto test strip Ql (U) Negative Negative [facility] Urine leukocyte esterase det ection by automated test stripOrdered By: DELANEY CARLISLE on 06-26-2022 Leukocyte esterase Auto test strip Ql (U) 3+ Negative [facility] Urine sediment crystal ident ification by light microscopyOrdered By: DELANEY CARLISLE on 06-26-2022 Crystals LM Nom (Urine sed) None seen [HPF] [facility] Urobilinogen Auto test strip (U) [Mass/Vol]Ordered By: DELANEY CARLISLE on 06-26-2022 Urobilinogen (U) [Mass/Vol] Normal mg/dL Normal [facility] Yeast detection in urine sed iment by light microscopyOrdered By: DELANEY CARLISLE on 06-26-2022 Yeast LM Ql (Urine sed) 2+ [HPF] None Seen [facility] pH Auto test strip (U)Ordere d By: DELANEY CARLISLE on 06-26-2022 pH (U) 5.5 [pH] 5.0-9.0 [facility] Automated erythrocytes count in urine sediment (number/area)Ordered By: Michael Cerda on 06-25-2022 RBC Auto (Urine sed) [#/Area] 3-4 [HPF] 0-4 [facility] Automated leukocytes count i n urine sediment (number/area)Ordered By: Michael Cerda on 06-25-2022 WBC Auto (Urine sed) [#/Area] Innumerable [HPF] 0-4 [facility] Basophils Auto (Bld) [#/Vol] Ordered By: PROVIDER TEMP on 06-25-2022 Basophils (Bld) [#/Vol] 0.0 10*3/uL 0.0-0.2 [facility] Basophils/100 WBC Auto (Bld) Ordered By: PROVIDER TEMP on 06-25-2022 Basophils/100 WBC (Bld) 0.1 % . [facility] Bilirubin Test strip Ql (U)O rdered By: Michael Cerda on 06-25-2022 Bilirubin Ql (U) Negative Negative [facility] Body fluid albumin measureme nt (mass/volume)Ordered By: PROVIDER TEMP on 06-25-2022 Albumin (Body fld) [Mass/Vol] 2.7 g/dL 3.2-5.5 [facility] Casts typing in urine sedime nt by light microscopyOrdered By: Michael Cerda on 06-25-2022 Casts LM Nom (Urine sed) None seen [LPF] None Seen [facility] Color Auto (U)Ordered By: Lorene Cerda on 06-25-2022 Color (U) Yellow Yellow [facility] Creatinine and Glomerular fi ltration rate.predicted panel (S/P/Bld)Ordered By: PROVIDER TEMP on 06-25-2022 Creatinine [Mass/Vol] 0.64 mg/dL 0.44-1.03 [facility] Eosinophils Auto (Bld) [#/Vo l]Ordered By: PROVIDER TEMP on 06-25-2022 Eosinophils (Bld) [#/Vol] 0.1 10*3/uL 0.0-0.45 [facility] Eosinophils/100 WBC Auto (Bl d)Ordered By: PROVIDER TEMP on 06-25-2022 Eosinophils/100 WBC (Bld) 0.7 % . [facility] Erythrocyte distribution wid th Auto (RBC) [Ratio]Ordered By: PROVIDER TEMP on 06-25-2022 Erythrocyte distribution width (RBC) [Ratio] 16.1 % 11.9-15.3 [facility] Estimated glomerular filtrat ion rate (GFR) non- AmericanOrdered By: PROVIDER TEMP on 06-25-2022 GFR/1.73 sq M.predicted among non-blacks MDRD (S/P/Bld) [Vol rate/Area] > 60 mL/Min [facility] Globulin Calc (S) [Mass/Vol] Ordered By: PROVIDER TEMP on 06-25-2022 Globulin (S) [Mass/Vol] 3.3 g/dL [facility] Hematocrit Auto (Bld) [Volum e fraction]Ordered By: PROVIDER TEMP on 06-25-2022 Hematocrit (Bld) [Volume fraction] 29.0 % 34.0-46.4 [facility] Hemoglobin [Mass/volume] in BloodOrdered By: PROVIDER TEMP on 06-25-2022 Hemoglobin (Bld) [Mass/Vol] 9.9 g/dL 11.8-15.4 [facility] Ketones Auto test strip (U) [Mass/Vol]Ordered By: Michael Cerda on 06-25-2022 Ketones (U) [Mass/Vol] 4+ Negative [facility] - UrinalysisOrder ed By: Michael Cerda on 06-25-2022 Hyaline casts LM Ql (Urine sed) 0-1 [LPF] 0-8 [facility] Leukocytes [#/volume] correc nneka for nucleated erythrocytes in Blood by Automated counOrdered By: PROVIDER TEMP on 06-25-2022 WBC corrected for nucl RBC Auto (Bld) [#/Vol] 10.5 10*3/uL 3.8-11.6 [facility] Lymphocytes Auto (Bld) [#/Vo l]Ordered By: PROVIDER TEMP on 06-25-2022 Lymphocytes (Bld) [#/Vol] 1.8 10*3/uL 1.00-4.8 [facility] Lymphocytes/100 WBC Auto (Bl d)Ordered By: PROVIDER TEMP on 06-25-2022 Lymphocytes/100 WBC (Bld) 16.7 % . [facility] MCH Auto (RBC) [Entitic mass ]Ordered By: PROVIDER TEMP on 06-25-2022 MCH (RBC) [Entitic mass] 31.6 pg 24.7-34.3 [facility] MCHC Auto (RBC) [Mass/Vol]Or dered By: PROVIDER TEMP on 06-25-2022 MCHC (RBC) [Mass/Vol] 34.2 g/dL 32.0-35.0 [facility] MCV Auto (RBC) [Entitic vol] Ordered By: PROVIDER TEMP on 06-25-2022 MCV (RBC) [Entitic vol] 92.4 fL 80-100 [facility] Monocyte distribution width [Entitic volume] in Blood by AutomatedOrdered By: PROVIDER TEMP on 06-25-2022 Monocyte distribution width Auto (Bld) [Entitic vol] 18.74 % 0.00-20.00 [facility] Monocytes Auto (Bld) [#/Vol] Ordered By: PROVIDER TEMP on 06-25-2022 Monocytes (Bld) [#/Vol] 0.8 10*3/uL 0.0-0.8 [facility] Monocytes/100 WBC Auto (Bld) Ordered By: PROVIDER TEMP on 06-25-2022 Monocytes/100 WBC (Bld) 7.5 % . [facility] Neutrophils Auto (Bld) [#/Vo l]Ordered By: PROVIDER TEMP on 06-25-2022 Neutrophils (Bld) [#/Vol] 7.9 10*3/uL 1.8-7.7 [facility] Neutrophils/100 WBC Auto (Bl d)Ordered By: PROVIDER TEMP on 06-25-2022 Neutrophils/100 WBC (Bld) 75.0 % . [facility] Nitrite Test strip Ql (U)Ord ered By: Michael Cerda on 06-25-2022 Nitrite Ql (U) Negative Negative [facility] No Panel InformationOrdered By: PROVIDER TEMP on 06-25-2022 Estimated GFR () > 60 mL/Min [facility] Comment on above: GFR estimated refere nce range: According to KDOQI guidelines, <60 ml/min/1.73m2 is sufficient to diagnose a patient with chronic kidney disease. Pharmacy Creatinine Clearance (Chem 153.48 [facility] Nucleated erythrocytes [Pres ence] in Blood by Automated countOrdered By: PROVIDER TEMP on 06-25-2022 Nucleated RBC Auto Ql (Bld) 0.3 /100{WBC} 0-0.5 [facility] Platelet mean volume Auto (B ld) [Entitic vol]Ordered By: PROVIDER TEMP on 06-25-2022 Platelet mean volume (Bld) [Entitic vol] 7.8 fL 6.3-10.7 [facility] Platelets Auto (Bld) [#/Vol] Ordered By: PROVIDER TEMP on 06-25-2022 Platelets (Bld) [#/Vol] 182 10*3/uL 150-450 [facility] Protein Auto test strip (U) [Mass/Vol]Ordered By: Michael Cerda on 06-25-2022 Protein (U) [Mass/Vol] Trace mg/dL Negative [facility] Protein [Mass/volume] in Ser um or PlasmaOrdered By: PROVIDER TEMP on 06-25-2022 Protein [Mass/Vol] 6.0 g/dL 6.1-7.9 [facility] RBC Auto (Bld) [#/Vol]Ordere d By: PROVIDER TEMP on 06-25-2022 RBC (Bld) [#/Vol] 3.14 10*6/uL 3.60-5.00 [facility] Serum or plasma alanine cox otransferase measurement without P-5'-P (enzymatic activiOrdered By: PROVIDER TEMP on 06-25-2022 ALT No additional P-5'-P [Catalytic activity/Vol] 10 U/L 10-60 [facility] Serum or plasma albumin/glob ulin mass ratioOrdered By: PROVIDER TEMP on 06-25-2022 Albumin/Globulin [Mass ratio] 0.8 {ratio} [facility] Serum or plasma alkaline sam sphatase measurement (enzymatic activity/volume)Ordered By: PROVIDER TEMP on 06-25-2022 ALP [Catalytic activity/Vol] 77 U/L 32-92 [facility] Serum or plasma anion gap de terminationOrdered By: PROVIDER TEMP on 06-25-2022 Anion gap [Moles/Vol] 15.1 mmol/L 6.0-15.0 [facility] Serum or plasma aspartate am inotransferase measurement (enzymatic activity/volume)Ordered By: PROVIDER TEMP on 06-25-2022 AST [Catalytic activity/Vol] 20 U/L 10-42 [facility] Serum or plasma calcium katie urement (mass/volume)Ordered By: PROVIDER TEMP on 06-25-2022 Calcium [Mass/Vol] 9.3 mg/dL 8.2-10.2 [facility] Serum or plasma chloride victorino surement (moles/volume)Ordered By: PROVIDER TEMP on 06-25-2022 Chloride [Moles/Vol] 107 mmol/L 95-114 [facility] Serum or plasma glucose katie urement (mass/volume)Ordered By: PROVIDER TEMP on 06-25-2022 Glucose [Mass/Vol] 72 mg/dL 70-100 [facility] Comment on above: ADA recommended refe rence rangeRandom Glucose Reference Range is dependent on time and content of last meal. Glucose of more than 200 mg/dL in a nonstressed, ambulatory subject supports the diagnosis of Diabetes Mellitus. Serum or plasma potassium me asurement (moles/volume)Ordered By: PROVIDER TEMP on 06-25-2022 Potassium [Moles/Vol] 3.6 mmol/L 3.5-5.1 [facility] Serum or plasma sodium measu rement (moles/volume)Ordered By: PROVIDER TEMP on 06-25-2022 Sodium [Moles/Vol] 137 mmol/L 136-146 [facility] Serum or plasma total biliru bin measurement (mass/volume)Ordered By: PROVIDER TEMP on 06-25-2022 Bilirubin [Mass/Vol] 0.7 mg/dL 0.3-1.2 [facility] Serum or plasma total carbon dioxide measurement (moles/volume)Ordered By: PROVIDER TEMP on 06-25-2022 CO2 [Moles/Vol] 18.5 mmol/L 22.0-30.0 [facility] Serum or plasma urea nitroge n measurement (mass/volume)Ordered By: PROVIDER TEMP on 06-25-2022 Urea nitrogen [Mass/Vol] 3 mg/dL 9-23 [facility] Specific gravity Auto test s trip (U) [Rel density]Ordered By: iMchael Cerda on 06-25-2022 Specific gravity (U) [Rel density] 1.016 1.001-1.030 [facility] Squamous epithelial cells de tection in urine sediment by light microscopyOrdered By: Michael Cerda on 06-25-2022 Epithelial cells.squamous LM Ql (Urine sed) 10-19 [HPF] 0-2 [facility] Troponin I.cardiac [Mass/vol ume] in Serum or Plasma by High sensitivity methodOrdered By: Michael Cerda on 06-25-2022 Troponin I.cardiac High sensitivity method [Mass/Vol] 6 pg/mL 0-15 [facility] Urine bacteria detection by automated methodOrdered By: Michael Cerda on 06-25-2022 Bacteria Auto Ql (U) 1+ None Seen [facility] Urine clarity by refractomet ry automatedOrdered By: Michael Cerda on 06-25-2022 Clarity Refractometry automated (U) Turbid Clear [facility] Urine culture routineOrdered By: Michael Cerda on 06-25-2022 Bacteria identified Cx Nom (U) 2 Days [facility] Urine glucose measurement by automated test strip (mass/volume)Ordered By: iMchael Cerda on 06-25-2022 Glucose Auto test strip (U) [Mass/Vol] Normal mg/dL Normal [facility] Urine hemoglobin detection b y automated test stripOrdered By: Michael Cerda on 06-25-2022 Hemoglobin Auto test strip Ql (U) Trace Negative [facility] Urine leukocyte esterase det ection by automated test stripOrdered By: Michael Cerda on 06-25-2022 Leukocyte esterase Auto test strip Ql (U) 4+ Negative [facility] Urobilinogen Auto test strip (U) [Mass/Vol]Ordered By: Michael Cerda on 06-25-2022 Urobilinogen (U) [Mass/Vol] Normal mg/dL Normal [facility] WBC Auto (Bld) [#/Vol]Ordere d By: CIERA CARABALLO on 06-25-2022 WBC (Bld) [#/Vol] 10.5 10*3/uL 3.8-11.6 [facility] Yeast detection in urine sed iment by light microscopyOrdered By: Michael Cerda on 06-25-2022 Yeast LM Ql (Urine sed) None seen [HPF] None Seen [facility] pH Auto test strip (U)Ordere d By: Michael Cerda on 06-25-2022 pH (U) 6.0 [pH] 5.0-9.0 [facility] GLUCOSE BLOODon 04-28-2022 Glucose [Mass/Vol] 83 mg/dL Normal 74-106 [facility] Comment on above: Performed By: #### G MINERVA, LIPID #### [facility] [address] [address] [address] Kinjal Rivers LIPID PROFILEon 04-28-2022 CHOL-HDL RATIO NORM SEE BELOW Normal [facility] Comment on above: Result Comment: 3.3 - 4.4 LOW RISK 4.4 - 7.1 AVERAGE RISK 7.1 - 11.0 MODERATE RISK >11.0 HIGH RISK Performed By: #### G MINERVA, LIPID #### [facility] [address] [address] [address] Kinjal Rivers Cholesterol [Mass/Vol] 232 mg/dL Critically high <=200 [facility] Comment on above: Performed By: #### G MINERVA, LIPID #### [facility] [address] [address] [address] Kinjal Rivers Cholesterol in HDL [Mass/Vol] 92 mg/dL Critically high 40-60 [facility] Comment on above: Performed By: #### G MINERVA, LIPID #### [facility] [address] [address] [address] Kinjal Rivers Cholesterol in LDL [Mass/Vol] 115.2 mg/dL Normal [facility] Comment on above: Performed By: #### G MINERVA, LIPID #### [facility] [address] [address] [address] Kinjal Rivers Cholesterol.total/Chol esterol in HDL [Mass ratio] 2.5 {ratio} Normal [facility] Comment on above: Performed By: #### G MINERVA, LIPID #### [facility] [address] [address] [address] Kinjal Rivers HDL NORMAL > or = 60 mg/dl - LO W CARDIOVASCULAR RISK <40 mg/dl - HIGH CARDIOVASCULAR RISK Normal [facility] Comment on above: Performed By: #### G MINERVA, LIPID #### [facility] [address] [address] [address] Kinjal Rivers LDL CALC NORMAL SEE BELOW Normal [facility] Comment on above: Result Comment: <100 mg/dl OPTIMAL 100 - 129 mg/dl NEAR OR ABOVE OPTIMAL 130 - 159 mg/dl BORDERLINE HIGH 160 - 189 mg/dl HIGH >190 mg/dl VERY HIGH Performed By: #### G MINERVA, LIPID #### [facility] [address] [address] [address] Kinjal Rivers Triglyceride [Mass/Vol] 124 mg/dL Normal <=150 [facility] Comment on above: Performed By: #### G MINERVA, LIPID #### [facility] [address] [address] [address] Kinjal Rivers VLDL CALC 24.8 mg/dL Normal [facility] Comment on above: Performed By: #### G MINERVA, LIPID #### [facility] [address] [address] [address] Kinjal Rivers Echocardiogramon 02-13-[address], [address] [facility], [place] [address] TRANSTHORACIC ECHOCARDIOGRAM REPORT Patient Name: MARICARMEN Monreal Physician: [id number] Tracee ANDERSON MD Study Date: 02/13/2022 Referring [id number] RITA OLIVIA Physician: MRN/PID: [id number] PCP: Viktor Sotelo Accession/Order#: [id number] Department [facility] Location: Date of : 1980 Fellow: Gender: F Nurse: Admit Date: Senior Caregiver: Georgia Grajeda RDCS, RVT Height: 167.64 cm CC Report to: Weight: 102.97 kg Study Type: Echocardiogram BSA: 2.11 m2 Blood Pressure: 114 /70 mmHg Diagnosis/ICD: I47.1-Supraventricular tachycardia; R06.02-Shortness of breath; I49.5-Sick sinus syndrome Indication: Abnormal EKG-Complete Heart Block, Pacemaker, History of Syncope, Obesity, Seizure Disorder, Pt is 13 weeks Procedure/CPT: Echo Complete w Full [id number] Study Detail: The following Echo studies were [...] 0.8 m/s (0.6-0.9m/s) PV Max P.9 mmHg [id number] Tracee Moore MD Electronically signed on 02/13/2022 at 5:36:08 PM Final Normal [facility] Echocardiography Please click on the link to view the study images Normal [facility] [address] [place] Work Phone: Falls Screening (Age 18+)on 02-13-2022 Fall risk assessment a) No falls within the last year [facility] [place] [address] [place] Work Phone: Urine culture routineOrdered By: Raymond Oconnor on 01-22-2022 Bacteria identified Cx Nom (U) 2 Days [facility] Albumin [Mass/volume] in Ser um or PlasmaOrdered By: Raymond Oconnor on 01-20-2022 Albumin [Mass/Vol] 3.4 g/dL 3.2-5.5 [facility] Automated erythrocytes count in urine sediment (number/area)Ordered By: Raymond Oconnor on 01-20-2022 RBC Auto (Urine sed) [#/Area] 3-4 [HPF] 0-4 [facility] Automated leukocytes count i n urine sediment (number/area)Ordered By: Raymond Oconnor on 01-20-2022 WBC Auto (Urine sed) [#/Area] 20-49 [HPF] 0-4 [facility] Automated urine sediment claudia cium oxalate crystal count by microscopy (number/high powOrdered By: Raymond Oconnor on 01-20-2022 Calcium oxalate crystals LM.HPF (Urine sed) [#/Area] 4+ [HPF] [facility] Basophils Auto (Bld) [#/Vol] Ordered By: Raymond Oconnor on 01-20-2022 Basophils (Bld) [#/Vol] 0.0 10*3/uL 0.0-0.2 [facility] Basophils/100 WBC Auto (Bld) Ordered By: Raymond Oconnor on 01-20-2022 Basophils/100 WBC (Bld) 0.4 % . [facility] Bilirubin Auto test strip Ql (U)Ordered By: Raymond Oconnor on 01-20-2022 Bilirubin Ql (U) Negative Negative [facility] Blood hemoglobin measurement (mass/volume)Ordered By: Raymond Oconnor on 01-20-2022 Hemoglobin (Bld) [Mass/Vol] 10.6 g/dL 11.8-15.4 [facility] Blood leukocytes automated c ount (number/volume)Ordered By: Raymond Oconnor on 01-20-2022 WBC (Bld) [#/Vol] 6.8 10*3/uL 4.5-11.0 [facility] Creatinine and Glomerular fi ltration rate.predicted panel (S/P/Bld)Ordered By: Raymond Oconnor on 01-20-2022 Creatinine [Mass/Vol] 0.62 mg/dL 0.44-1.03 [facility] Eosinophils Auto (Bld) [#/Vo l]Ordered By: Raymond Oconnor on 01-20-2022 Eosinophils (Bld) [#/Vol] 0.1 10*3/uL 0.0-0.45 [facility] Eosinophils/100 WBC Auto (Bl d)Ordered By: Raymond Oconnor on 01-20-2022 Eosinophils/100 WBC (Bld) 1.5 % . [facility] Erythrocyte distribution wid th Auto (RBC) [Ratio]Ordered By: Raymond Oconnor on 01-20-2022 Erythrocyte distribution width (RBC) [Ratio] 18.2 % 11.9-15.3 [facility] Estimated glomerular filtrat ion rate (GFR) non- AmericanOrdered By: Raymond Oconnor on 01-20-2022 GFR/1.73 sq M.predicted among non-blacks MDRD (S/P/Bld) [Vol rate/Area] > 60 mL/Min [facility] Globulin Calc (S) [Mass/Vol] Ordered By: Raymond Oconnor on 01-20-2022 Globulin (S) [Mass/Vol] 3.1 g/dL [facility] Hematocrit Auto (Bld) [Volum e fraction]Ordered By: Raymond Oconnor on 01-20-2022 Hematocrit (Bld) [Volume fraction] 33.6 % 34.0-46.4 [facility] Ketones Auto test strip (U) [Mass/Vol]Ordered By: Raymond Oconnor on 01-20-2022 Ketones (U) [Mass/Vol] Negative Negative [facility]aFormerly [facility] Hematology and Cell countsOrdered By: Raymond Oconnor on 01-20-2022 Nucleated RBC/100 WBC (Bld) [Ratio] 0.0 % 0-0.5 [facility] - UrinalysisOrder ed By: Raymond Oconnor on 01-20-2022 Hyaline casts LM Ql (Urine sed) 0-8 [LPF] 0-8 [facility] Lymphocytes Auto (Bld) [#/Vo l]Ordered By: Raymond Oconnor on 01-20-2022 Lymphocytes (Bld) [#/Vol] 1.3 10*3/uL 1.00-4.8 [facility] Lymphocytes/100 WBC Auto (Bl d)Ordered By: Raymond Oconnor on 01-20-2022 Lymphocytes/100 WBC (Bld) 19.1 % . [facility] MCH Auto (RBC) [Entitic mass ]Ordered By: Raymond Oconnor on 01-20-2022 MCH (RBC) [Entitic mass] 26.9 pg 24.7-34.3 [facility] MCHC Auto (RBC) [Mass/Vol]Or dered By: Raymond Oconnor on 01-20-2022 MCHC (RBC) [Mass/Vol] 31.7 g/dL 32.0-35.0 [facility] MCV Auto (RBC) [Entitic vol] Ordered By: Raymodn Oconnor on 01-20-2022 MCV (RBC) [Entitic vol] 84.8 fL 80-100 [facility] Monocytes Auto (Bld) [#/Vol] Ordered By: Raymond Oconnor on 01-20-2022 Monocytes (Bld) [#/Vol] 0.4 10*3/uL 0.0-0.8 [facility] Monocytes/100 WBC Auto (Bld) Ordered By: Raymond Oconnor on 01-20-2022 Monocytes/100 WBC (Bld) 6.6 % . [facility] Neutrophils Auto (Bld) [#/Vo l]Ordered By: Raymond Oconnor on 01-20-2022 Neutrophils (Bld) [#/Vol] 4.9 10*3/uL 1.8-7.7 [facility] Neutrophils/100 WBC Auto (Bl d)Ordered By: Raymond Oconnor on 01-20-2022 Neutrophils/100 WBC (Bld) 72.4 % . [facility] No Panel InformationOrdered By: Raymond Oconnor on 01-20-2022 Estimated GFR () > 60 mL/Min [facility] Comment on above: GFR estimated refere nce range: According to KDOQI guidelines, <60 ml/min/1.73m2 is sufficient to diagnose a patient with chronic kidney disease. Pharmacy Creatinine Clearance (Chem 147.20 [facility] Platelet mean volume Auto (B ld) [Entitic vol]Ordered By: Raymond Oconnor on 01-20-2022 Platelet mean volume (Bld) [Entitic vol] 8.1 fL 6.3-10.7 [facility] Platelets Auto (Bld) [#/Vol] Ordered By: Raymond Oconnor on 01-20-2022 Platelets (Bld) [#/Vol] 214 10*3/uL 150-450 [facility] Protein Auto test strip (U) [Mass/Vol]Ordered By: Raymond Oconnor on 01-20-2022 Protein (U) [Mass/Vol] Negative Negative [facility] Protein [Mass/volume] in Ser um or PlasmaOrdered By: Raymond Oconnor on 01-20-2022 Protein [Mass/Vol] 6.5 g/dL 6.1-7.9 [facility] RBC Auto (Bld) [#/Vol]Ordere d By: Raymond Oconnor on 01-20-2022 RBC (Bld) [#/Vol] 3.95 10*6/uL 3.60-5.00 [facility] Serum or plasma alanine cox otransferase measurement without P-5'-P (enzymatic activiOrdered By: Raymond Oconnor on 01-20-2022 ALT No additional P-5'-P [Catalytic activity/Vol] 10 U/L 10-60 [facility] Serum or plasma albumin/glob ulin mass ratioOrdered By: Raymond Oconnor on 01-20-2022 Albumin/Globulin [Mass ratio] 1.1 {ratio} [facility] [facility] Serum or plasma alkaline sam sphatase measurement (enzymatic activity/volume)Ordered By: Raymond Oconnor on 01-20-2022 ALP [Catalytic activity/Vol] 51 U/L 32-92 [facility] Serum or plasma aspartate am inotransferase measurement (enzymatic activity/volume)Ordered By: Raymond Oocnnor on 01-20-2022 AST [Catalytic activity/Vol] 16 U/L 10-42 [facility] Serum or plasma calcium katie urement (mass/volume)Ordered By: Raymond Oconnor on 01-20-2022 Calcium [Mass/Vol] 9.4 mg/dL 8.2-10.2 [facility] Serum or plasma chloride victorino surement (moles/volume)Ordered By: Raymond Oconnor on 01-20-2022 Chloride [Moles/Vol] 103 mmol/L 95-114 [facility] Serum or plasma glucose katie urement (mass/volume)Ordered By: Raymond Oconnor on 01-20-2022 Glucose [Mass/Vol] 82 mg/dL 70-100 [facility] Comment on above: ADA recommended refe rence range Random Glucose Reference Range is dependent on time and content of last meal. Glucose of more than 200 mg/dL in a nonstressed, ambulatory subject supports the diagnosis of Diabetes Mellitus. Serum or plasma potassium me asurement (moles/volume)Ordered By: Raymond Oconnor on 01-20-2022 Potassium [Moles/Vol] 4.0 mmol/L 3.5-5.1 [facility] Serum or plasma sodium measu rement (moles/volume)Ordered By: Raymond Oconnor on 01-20-2022 Sodium [Moles/Vol] 134 mmol/L 136-146 [facility] Serum or plasma total biliru bin measurement (mass/volume)Ordered By: Raymond Oconnor on 01-20-2022 Bilirubin [Mass/Vol] 0.7 mg/dL 0.3-1.2 [facility] Serum or plasma total carbon dioxide measurement (moles/volume)Ordered By: Raymond Oconnor on 01-20-2022 CO2 [Moles/Vol] 19.6 mmol/L 22.0-30.0 [facility] Serum or plasma urea nitroge n measurement (mass/volume)Ordered By: Raymond Oconnor on 01-20-2022 Urea nitrogen [Mass/Vol] 8 mg/dL 9-23 [facility] Squamous epithelial cells de tection in urine sediment by light microscopyOrdered By: Raymond Oconnor on 01-20-2022 Epithelial cells.squamous LM Ql (Urine sed) 0-1 [HPF] 0-2 [facility] Urine appearanceOrdered By: Raymond Oconnor on 01-20-2022 Appearance (U) Clear Clear [facility] Urine bacteria detection by automated methodOrdered By: Raymond Oconnor on 01-20-2022 Bacteria Auto Ql (U) None seen None Seen [facility] Urine colorOrdered By: Chela Oconnor on 01-20-2022 Color (U) Yellow Yellow [facility] Urine glucose measurement by automated test strip (mass/volume)Ordered By: Raymond Oconnor on 01-20-2022 Glucose Auto test strip (U) [Mass/Vol] Normal mg/dL Normal [facility] Urine hemoglobin detection b y automated test stripOrdered By: Raymond Oconnor on 01-20-2022 Hemoglobin Auto test strip Ql (U) Negative Negative [facility] Urine leukocyte esterase det ection by automated test stripOrdered By: Raymond Oconnor on 01-20-2022 Leukocyte esterase Auto test strip Ql (U) 2+ Negative [facility] Urine nitrite detection by a utomated test stripOrdered By: Raymond Oconnor on 01-20-2022 Nitrite Auto test strip Ql (U) Negative Negative [facility] Urine sediment crystal ident ification by light microscopyOrdered By: Raymond Oconnor on 01-20-2022 Crystals LM Nom (Urine sed) None seen [HPF] [facility] Urobilinogen Auto test strip (U) [Mass/Vol]Ordered By: Raymond Oconnor on 01-20-2022 Urobilinogen (U) [Mass/Vol] Normal mg/dL Normal [facility] pH Auto test strip (U)Ordere d By: Raymond Oconnor on 01-20-2022 pH (U) 1.030 [pH] 1.001-1.030 [facility] pH (U) 6.0 [pH] 5.0-9.0 [facility] Tobacco Screening.on 022 Fall risk assessment a) No falls within the last year [facility] [address] DO Work Phone: Tobacco use status CPHS b) No [facility] [address] DO Work Phone: Tobacco Screening. Yes [facility] [address] DO Work Phone: Serum or plasma beta choriog onadotropin measurement (units/volume)Ordered By: Eduardo Swain on 12-16-2021 HCG.beta subunit Qn 3876.00 m[IU]/mL [facility] Comment on above: Approximate Approxim ate hCG Gestational Age Range (mIU/ml) (weeks) 0.2-1 5-50 1-2 50-500 2-3 100-5,000 3-4 500-10,000 4-5 1,000-50,000 5-6 10,000-100,000 6-8 15,000-200,000 8-12 10,000-100,000 Cholesterol [Mass/volume] in Serum or PlasmaOrdered By: Eduardo Swain on 12-11-2021 Cholesterol [Mass/Vol] 190 mg/dL 140-200 [facility] Comment on above: Chol less than 200 m g/dl low risk Chol 201-239 mg/dl borderline risk Chol 240 mg/dl and greater high risk Cholesterol in LDL Calc [Mas s/Vol]Ordered By: Eduardo Swain on 12-11-2021 Cholesterol in LDL [Mass/Vol] 103 mg/dL 0-100 [facility] Comment on above: LDL ATP III CLASSIFI CATION LDL less than 100 mg/dL Optimal LDL 100-129 mg/dL Near or above optimal LDL 130-159 mg/dL Borderline high LDL 160-189 mg/dL High LDL greater than 189 mg/dL Very high Cholesterol in VLDL Calc [Ma ss/Vol]Ordered By: Eduardo Swain on 12-11-2021 Cholesterol in VLDL [Mass/Vol] 9 mg/dL [facility] No Panel InformationOrdered By: Eduardo Swain on 12-11-2021 25-Hydroxy Vitamin D Total 40.6 ng/mL 30-100 [facility] Comment on above: VITAMIN D STATUS 25( [place])VITAMIN D RANGE (ng/mL) Deficient <20 Insufficient 20 to <30 Sufficient 30 to 100 Reference: Franklyn MF,Benjamin NC, Andreina MARQUEZ, et al. Evaluation,treatment, and prevention of vitamin D deficiency; an Endocrine Society clinical practice guideline. JCEM. 2010; 96(2):1911-30. Serum or plasma high density lipoprotein (HDL) cholesterol measurementOrdered By: Eduardo Swain on 12-11-2021 Cholesterol in HDL [Mass/Vol] 78 mg/dL 35-85 [facility] Comment on above: HDL CHOL ATP-III CLA SSIFICATION Cardiovascular Risk HDL > or equal to 60 mg/dL LOW HDL < 40 mg/dL HIGH Serum or plasma total choles terol/high density lipoprotein (HDL) cholesterol mass ratOrdered By: Eduardo Swain on 12-11-2021 Cholesterol.total/Chol esterol in HDL [Mass ratio] 2.4 {ratio} <5.0 [facility] TSH DL <= 0.005 mIU/L QnOrde red By: Eduardo Swain on 12-11-2021 TSH Qn 2.40 m[IU]/L 0.45-5.33 [facility] Triglyceride [Mass/volume] i n Serum or PlasmaOrdered By: Eduardo Swain on 12-11-2021 Triglyceride [Mass/Vol] 47 mg/dL 35-149 [facility] Comment on above: TRIG ATP III CLASSIF ICATION TRIG less than 150 mg/dL Normal TRIG 150-199 mg/dL Borderline high TRIG 200-500 mg/dL High TRIG greater than 500 mg/dL Very high Standard traceable to the Center for Disease Conrtrol and Prevention (CDC) test method. Serum or plasma beta choriog onadotropin measurement (units/volume)Ordered By: Eduardo Swain on 12-10-2021 HCG.beta subunit Qn 315.21 m[IU]/mL [facility] Comment on above: Approximate Approxim ate hCG Gestational Age Range (mIU/ml) (weeks) 0.2-1 5-50 1-2 50-500 2-3 100-5,000 3-4 500-10,000 4-5 1,000-50,000 5-6 10,000-100,000 6-8 15,000-200,000 8-12 10,000-100,000 Urine culture routineOrdered By: Cornell Mcnair on 12-10-2021 Bacteria identified Cx Nom (U) Strep. agalactiae Grp B [facility] Amphetamine Screen Ql (U)Ord ered By: Cornell Mcnair on 12-08-2021 Amphetamines Ql (U) Negative Negative [facility] Automated erythrocytes count in urine sediment (number/area)Ordered By: Cornell Mcnair on 12-08-2021 RBC Auto (Urine sed) [#/Area] 10-19 [HPF] 0-4 [facility] Automated leukocytes count i n urine sediment (number/area)Ordered By: Cornell Mcnair on 12-08-2021 WBC Auto (Urine sed) [#/Area] 50-100 [HPF] 0-4 [facility] Automated urine hyaline cast s count (number/volume)Ordered By: Cornell Mcnair on 12-08-2021 Hyaline casts Auto (U) [#/Vol] 0-1 [LPF] 0-1 [facility] Automated urine sediment claudia cium oxalate crystal count by microscopy (number/high powOrdered By: Cornell Mcnair on 12-08-2021 Calcium oxalate crystals LM.HPF (Urine sed) [#/Area] 3+ [HPF] [facility] Barbiturates [Presence] in U rineOrdered By: Cornell Mcnair on 12-08-2021 Barbiturates Ql (U) Negative Negative [facility] Basophils Auto (Bld) [#/Vol] Ordered By: Cornell Mcnair on 12-08-2021 Basophils (Bld) [#/Vol] 0.0 10*3/uL 0.0-0.2 [facility] Basophils/100 WBC Auto (Bld) Ordered By: Cornell Mcnair on 12-08-2021 Basophils/100 WBC (Bld) 0.6 % . [facility] Benzodiazepines [Presence] i n UrineOrdered By: Cornell Mcnair on 12-08-2021 Benzodiazepines Ql (U) Negative Negative [facility] Bilirubin Test strip Ql (U)O rdered By: Cornell Mcnair on 12-08-2021 Bilirubin Ql (U) Negative Negative [facility] Blood hemoglobin measurement (mass/volume)Ordered By: Cornell Mcnair on 12-08-2021 Hemoglobin (Bld) [Mass/Vol] 9.6 g/dL 11.8-15.4 [facility] Blood leukocytes automated c ount (number/volume)Ordered By: Cornell Mcnair on 12-08-2021 WBC (Bld) [#/Vol] 6.9 10*3/uL 4.5-11.0 [facility] Body fluid albumin measureme nt (mass/volume)Ordered By: Cornell Mcnair on 12-08-2021 Albumin (Body fld) [Mass/Vol] 3.4 g/dL 3.2-5.5 [facility] COVID-19 SOFIAOrdered By: Julia Mcnair on 12-08-2021 SARS-CoV+SARS-CoV-2 (COVID-19) Ag IA.rapid Ql (Resp) Negative Negative [facility] Comment on above: This is a duplicate [place] SARS Antigen (DIEUDONNE) result to be used for statistical tracking purpose only. Cannabinoids [Presence] in U rine by Screen methodOrdered By: Cornell Mcnair on 12-08-2021 Cannabinoids Screen Ql (U) Negative Negative [facility] Comment on above: These are [...] (Urine sed) None seen [LPF] None Seen [facility] Color Auto (U)Ordered By: Julia Mcnair on 12-08-2021 Color (U) Yellow Yellow [facility] Creatinine and Glomerular fi ltration rate.predicted panel (S/P/Bld)Ordered By: Cornell Mcnair on 12-08-2021 Creatinine [Mass/Vol] 0.78 mg/dL 0.44-1.03 [facility] Eosinophils Auto (Bld) [#/Vo l]Ordered By: Cornell Mcnair on 12-08-2021 Eosinophils (Bld) [#/Vol] 0.2 10*3/uL 0.0-0.45 [facility] Eosinophils/100 WBC Auto (Bl d)Ordered By: Cornell Mcnair on 12-08-2021 Eosinophils/100 WBC (Bld) 2.6 % . [facility] Erythrocyte distribution wid th Auto (RBC) [Ratio]Ordered By: Cornell Mcnair on 12-08-2021 Erythrocyte distribution width (RBC) [Ratio] 15.5 % 11.9-15.3 [facility] Estimated glomerular filtrat ion rate (GFR) non- AmericanOrdered By: Cornell Mcnair on 12-08-2021 GFR/1.73 sq M.predicted among non-blacks MDRD (S/P/Bld) [Vol rate/Area] > 60 mL/Min [facility] Globulin Calc (S) [Mass/Vol] Ordered By: Cornell Mcnair on 12-08-2021 Globulin (S) [Mass/Vol] 3.1 g/dL [facility] HCG ( test) IA.rapi d Ql (U)Ordered By: Cornell Mcnair on 12-08-2021 HCG ( test) Ql (U) Positive [facility] Hematocrit Auto (Bld) [Volum e fraction]Ordered By: Cornell Mcnair on 12-08-2021 Hematocrit (Bld) [Volume fraction] 30.1 % 34.0-46.4 [facility] Ketones Auto test strip (U) [Mass/Vol]Ordered By: Cornell Mcnair on 12-08-2021 Ketones (U) [Mass/Vol] Trace Negative [facility] - Drug toxicology Ordered By: Cornell Mcnair on 12-08-2021 Opiates Ql (U) Negative Negative [facility] Laboratory - Hematology and Cell countsOrdered By: Cornell Mcnair on 12-08-2021 Nucleated RBC/100 WBC (Bld) [Ratio] 0.0 % 0-0.5 [facility] Lymphocytes Auto (Bld) [#/Vo l]Ordered By: Cornell Mcnair on 12-08-2021 Lymphocytes (Bld) [#/Vol] 1.5 10*3/uL 1.00-4.8 [facility] Lymphocytes/100 WBC Auto (Bl d)Ordered By: Cornell Mcnair on 12-08-2021 Lymphocytes/100 WBC (Bld) 22.3 % . [facility] MCH Auto (RBC) [Entitic mass ]Ordered By: Cornell Mcnair on 12-08-2021 MCH (RBC) [Entitic mass] 26.3 pg 24.7-34.3 [facility] MCHC Auto (RBC) [Mass/Vol]Or dered By: Cornell Mcnair on 12-08-2021 MCHC (RBC) [Mass/Vol] 32.0 g/dL 32.0-35.0 [facility] MCV Auto (RBC) [Entitic vol] Ordered By: Cornell cMnair on 12-08-2021 MCV (RBC) [Entitic vol] 82.4 fL 80-100 [facility] Monocytes Auto (Bld) [#/Vol] Ordered By: Cornell Mcnair on 12-08-2021 Monocytes (Bld) [#/Vol] 0.4 10*3/uL 0.0-0.8 [facility] Monocytes/100 WBC Auto (Bld) Ordered By: Cornell Mcnair on 12-08-2021 Monocytes/100 WBC (Bld) 6.5 % . [facility] Mucus LM Ql (Urine sed)Order ed By: Cornell Mcnair on 12-08-2021 Mucus Ql (Urine sed) 2+ [LPF] [facility] Neutrophils Auto (Bld) [#/Vo l]Ordered By: Cornell Mcnair on 12-08-2021 Neutrophils (Bld) [#/Vol] 4.7 10*3/uL 1.8-7.7 [facility] Neutrophils/100 WBC Auto (Bl d)Ordered By: Cornell Mcnair on 12-08-2021 Neutrophils/100 WBC (Bld) 68.0 % . [facility] Nitrite Test strip Ql (U)Ord ered By: Cornell Mcnair on 12-08-2021 Nitrite Ql (U) Negative Negative [facility] No Panel InformationOrdered By: Cornell Mcnair on 12-08-2021 Estimated GFR () > 60 mL/Min [facility] Comment on above: GFR estimated refere nce range: According to KDOQI guidelines, <60 ml/min/1.73m2 is sufficient to diagnose a patient with chronic kidney disease. Pharmacy Creatinine Clearance (Chem 115.38 [facility] SARS Antigen (LFIA) [facility] Phencyclidine Screen Ql (U)O rdered By: Cornell Mcnair on 12-08-2021 Phencyclidine Ql (U) Negative Negative [facility] Platelet mean volume Auto (B ld) [Entitic vol]Ordered By: Cornell Mncair on 12-08-2021 Platelet mean volume (Bld) [Entitic vol] 7.2 fL 6.3-10.7 [facility] Platelets Auto (Bld) [#/Vol] Ordered By: Cornell Mcnair on 12-08-2021 Platelets (Bld) [#/Vol] 229 10*3/uL 150-450 [facility] Protein Auto test strip (U) [Mass/Vol]Ordered By: Cornell Mcnair on 12-08-2021 Protein (U) [Mass/Vol] Negative Negative [facility] Protein [Mass/volume] in Ser um or PlasmaOrdered By: Cornell Mcnair on 12-08-2021 Protein [Mass/Vol] 6.5 g/dL 6.1-7.9 [facility] RBC Auto (Bld) [#/Vol]Ordere d By: Cornell Mcnair on 12-08-2021 RBC (Bld) [#/Vol] 3.65 10*6/uL 3.60-5.00 [facility] Serum or plasma alanine cox otransferase measurement without P-5'-P (enzymatic activiOrdered By: Cornell Mcnair on 12-08-2021 ALT No additional P-5'-P [Catalytic activity/Vol] 11 U/L 10-60 [facility] Serum or plasma albumin/glob ulin mass ratioOrdered By: Cornell Mcnair on 12-08-2021 Albumin/Globulin [Mass ratio] 1.1 {ratio} [facility] Serum or plasma alkaline sam sphatase measurement (enzymatic activity/volume)Ordered By: Cornell Mcnair on 12-08-2021 ALP [Catalytic activity/Vol] 64 U/L 32-92 [facility] Serum or plasma aspartate am inotransferase measurement (enzymatic activity/volume)Ordered By: Cornell Mcnair on 12-08-2021 AST [Catalytic activity/Vol] 22 U/L 10-42 [facility] Serum or plasma calcium katie urement (mass/volume)Ordered By: Cornell Mcnair on 12-08-2021 Calcium [Mass/Vol] 8.9 mg/dL 8.2-10.2 [facility] Serum or plasma chloride victorino surement (moles/volume)Ordered By: Cornell Mcnair on 12-08-2021 Chloride [Moles/Vol] 106 mmol/L 95-114 [facility] Serum or plasma ethanol katie urement (mass/volume)Ordered By: Cornell Mcnair on 12-08-2021 Ethanol [Mass/Vol] mg/dL [facility] Ethanol [Mass/Vol] TNP [facility] Comment on above: Test not performed Serum or plasma glucose katie urement (mass/volume)Ordered By: Cornell Mcnair on 12-08-2021 Glucose [Mass/Vol] 86 mg/dL 70-100 [facility] Comment on above: ADA recommended refe rence range Random Glucose Reference Range is dependent on time and content of last meal. Glucose of more than 200 mg/dL in a nonstressed, ambulatory subject supports the diagnosis of Diabetes Mellitus. Serum or plasma potassium me asurement (moles/volume)Ordered By: Cornell Mcnair on 12-08-2021 Potassium [Moles/Vol] 3.9 mmol/L 3.5-5.1 [facility] Serum or plasma sodium measu rement (moles/volume)Ordered By: Cornell Mcnair on 12-08-2021 Sodium [Moles/Vol] 137 mmol/L 136-146 [facility] Serum or plasma total biliru bin measurement (mass/volume)Ordered By: Cornell Mcnair on 12-08-2021 Bilirubin [Mass/Vol] 0.4 mg/dL 0.3-1.2 [facility] Serum or plasma total carbon dioxide measurement (moles/volume)Ordered By: Cornell Mcnair on 12-08-2021 CO2 [Moles/Vol] 23.8 mmol/L 22.0-30.0 [facility] Serum or plasma urea nitroge n measurement (mass/volume)Ordered By: Cornell Mcnair on 12-08-2021 Urea nitrogen [Mass/Vol] 9 mg/dL 9- [facility] Specific gravity Auto test s trip (U) [Rel density]Ordered By: Cornell Mcnair on 12-08-2021 Specific gravity (U) [Rel density] 1.024 1.001-1.030 [facility] Squamous epithelial cells de tection in urine sediment by light microscopyOrdered By: Cornell Mcnair on 12-08-2021 Epithelial cells.squamous LM Ql (Urine sed) 10-19 [HPF] 0-2 [facility] Urine bacteria detection by automated methodOrdered By: Cornell Mcnair on 12-08-2021 Bacteria Auto Ql (U) None seen None Seen [facility] Urine clarity by refractomet ry automatedOrdered By: Cornell Mcnair on 12-08-2021 Clarity Refractometry automated (U) Cloudy Clear [facility] Urine cocaine detectionOrder ed By: Cornell Mcnair on 12-08-2021 Cocaine Ql (U) Negative Negative [facility] Urine glucose measurement by automated test strip (mass/volume)Ordered By: Cornell Mcnair on 12-08-2021 Glucose Auto test strip (U) [Mass/Vol] Normal mg/dL Normal [facility] Urine hemoglobin detection b y automated test stripOrdered By: Cornell Mcnair on 12-08-2021 Hemoglobin Auto test strip Ql (U) Negative Negative [facility] Urine leukocyte esterase det ection by automated test stripOrdered By: Cornell Mcnair on 12-08-2021 Leukocyte esterase Auto test strip Ql (U) 3+ Negative [facility] Urobilinogen Auto test strip (U) [Mass/Vol]Ordered By: Cornell Mcnair on 12-08-2021 Urobilinogen (U) [Mass/Vol] Normal mg/dL Normal [facility] Yeast detection in urine sed iment by light microscopyOrdered By: Cornell Mcnair on 12-08-2021 Yeast LM Ql (Urine sed) 1+ [HPF] None Seen [facility] pH Auto test strip (U)Ordere d By: Cornell Mcnair on 12-08-2021 pH (U) 5.0 [pH] 5.0-9.0 [facility] CNPNon 09-18-2021 CNPN Telephone ([facility]) ----- MARICARMEN ANDERSON ([id number]) 1980 F T Date Time Provider Department 09/18/21 CLEMENTE ENG [...] calling: self Call patient at: at home [phone] (home) [phone] (cell) Was an appointment scheduled: No Closing statement: Symptom Call: Thank you for calling [facility], your call is very important. A [...] She states she will go to a [facility] ER because local ER doesn't [...] by KATHI WATERMAN RN on 09/18/21 Normal [facility] MRI CERVICAL SPINE WO IVCONo n 11-13-2020 [...] vertebrae with counting from the craniocervical junction. Biomedical Engineering Supervisor: [facility] Transcribe Date/Time: Nov 13 2020 2:41P Dictated by : KURT MALIN MD This examination was interpreted and the report reviewed and electronically signed by: DHRUV KINGSLEY MD on Nov 13 2020 3:33PM EST [id number] Normal [facility] MRI KIDNEY WO/W IVCONon 05-2 MRI KIDNEY [...] included: axial precontrast T1 weighted in- and [id number]-[id number], axial and coronal HASTE, axial DWI with [...] NO SUSPICIOUS OR ENHANCING RENAL LESIONS OTHERWISE. Biomedical Engineering Supervisor[facility] Transcribe Date/Time: Nov 13 2020 3:28P Dictated by : GAURAV RODRIGUEZ MD This examination was interpreted and the report reviewed and electronically signed by: NACHO BARONE DO on Nov 13 2020 7:26PM EST [id number] Normal [facility] XR CHEST 2V FRONTAL/LATon XR CHEST 2V [...] disease identified in the lungs or mediastinum. Biomedical Engineering Supervisor: [facility] Transcribe Date/Time: Nov 13 2020 3:36P Dictated by : DESI MAHONEY MD This examination was interpreted and the report reviewed and electronically signed by: DESI MAHONEY MD on Nov 13 2020 3:38PM EST [id number] Normal [facility] Basic Metabolic Panlon 11-12 Anion gap [Moles/Vol] 9 mmol/L Normal 0-15 [facility] Calcium [Mass/Vol] 8.9 mg/dL Normal 8.5-10.2 [facility] Chloride [Moles/Vol] 112 mmol/L High 97-105 [facility] CO2 [Moles/Vol] 19 mmol/L Low 22-30 [facility] Creatinine [Mass/Vol] 0.73 mg/dL Normal 0.58-0.96 [facility] eGFR- Amer. >60 Normal [facility] eGFR-All Other Races >60 Normal [facility] Comment on above: Result Comment: eGFR [...] GFR. Glucose [Mass/Vol] 89 mg/dL Normal 74-99 [facility] Potassium [Moles/Vol] 3.7 mmol/L Normal 3.7-5.1 [facility] Sodium [Moles/Vol] 140 mmol/L Normal 136-144 [facility] Urea nitrogen [Mass/Vol] 21 mg/dL Normal 7-21 [facility] Blood Cultureon 11-12-2020 Bacteria identified Cx Nom (Bld) Culture Result - No growth 5 days Normal [facility] Comment on above: Performed By: #### B LCUL ####[facility] [id number] [place], [place] [id number] Bacteria identified Cx Nom (Bld) Sp. Request/Comment: - 42.85CC Culture Result - No growth 5 days Normal [facility] Comment on above: Performed By: #### B LCUL ####[facility] [id number] [place], [place] [id number] CBCon 11-12-2020 Absolute nRBC <0.01 Normal <0.01 [facility] Erythrocyte distribution width (RBC) [Ratio] 16.8 % High 11.5-15.0 [facility] Hematocrit (Bld) [Volume fraction] 28.9 % Low 36.0-46.0 [facility] Hemoglobin (Bld) [Mass/Vol] 8.5 g/dL Low 11.5-15.5 [facility] MCH 26.6 pG Normal 26.0-34.0 [facility] MCHC (RBC) [Mass/Vol] 29.4 g/dL Low 30.5-36.0 [facility] MCV (RBC) [Entitic vol] 90.6 fL Normal 80.0-100.0 [facility] Platelet mean volume (Bld) [Entitic vol] 11.6 fL Normal 9.0-12.7 [facility] Platelets (Bld) [#/Vol] 167 10*3/uL Normal 150-400 [facility] RBC (Bld) [#/Vol] 3.19 10*6/uL Low 3.90-5.20 [facility] WBC (Bld) [#/Vol] 3.88 10*3/uL [facility] 3.70-11.00 [facility]: [id number] Author: Lucero Wheeler DO Service: General Surgery [...] fevers. 40 year old female presented to [facility] [facility] with fevers and left flank [...] needed for Nausea/Vo (more content not included)... [facility] CONSULT PROGon 11-12-2020 CONSULT PROG HNO ID: [id number] Author: Awais Gonzalez MD Service: Infectious Disease [...] Chest 3 days SIGNATURE: Awais Gonzalez MD [facility] NURSING PROGon 11-12-2020 NURSING PROG HNO ID: [id number] Author: Wisam Carvajal RN Service: ? Author Type: Registered Nurse Type: Nursing Progress Note Filed: 11/12/2020 6:21 PM Note Text: Nursing Progress Note Patient Name: Maricarmen Anderson Patient Location: AR/ AR- Daily Note: 0920: Assessment complete, patient denies nausea, heat pad given for pain, will continue to monitor 1750: blood cultures collected and sent to lab 1820: Discharge instructions given This note was completed by: Wisam Carvajal [facility] SHAMEKA Panel 11-11-2020 SHAMEKA by EIA 0.8 OD Ratio Normal [facility] Comment on above: Result Comment: OD R atio is interpreted as follows: Negative <1.0 Positive >=1.0 Performed By: #### P RALPH, TRANSF #### [facility] [address] [address] SHAMEKA by EIA, Qual Negative Normal Negative [facility] Comment on above: Performed By: #### P RALPH, TRANSF #### [facility] [address] [address] Basic Metabolic Panlon 11-11 Anion gap [Moles/Vol] 9 mmol/L Normal 0-15 [facility] Calcium [Mass/Vol] 9.2 mg/dL Normal 8.5-10.2 [facility] Chloride [Moles/Vol] 115 mmol/L High 97-105 [facility] CO2 [Moles/Vol] 19 mmol/L Low 22-30 [facility] Creatinine [Mass/Vol] 0.78 mg/dL Normal 0.58-0.96 [facility] eGFR- Amer. >60 Normal [facility] eGFR-All Other Races >60 Normal [facility] Comment on above: Result Comment: eGFR (Estimated GFR) Units of measure: mL/min/1.73 meters squared eGFR is derived from the reexpressed MDRD Study equation using the following parameters: serum creatinine, age, gender and race. The creatinine assay has been calibrated to be traceable to IDKS. An eGFR <60 mL/min/1.73m2 for >3 months is consistent with chronic kidney disease. Refer to KDOQI guidelines for clinical interpretation. In patients with unstable renal function, e.g. those with acute kidney injury, the eGFR may not accurately reflect actual GFR. Glucose [Mass/Vol] 89 mg/dL Normal 74-99 [facility] Potassium [Moles/Vol] 3.8 mmol/L Normal 3.7-5.1 [facility] Sodium [Moles/Vol] 143 mmol/L Normal 136-144 [facility] Urea nitrogen [Mass/Vol] 20 mg/dL Normal 7-21 [facility] Blood Cultureon 11-11-2020 Bacteria identified Cx Nom (Bld) Culture Result - No growth 5 days Normal [facility] Comment on above: Performed By: #### B LCUL ####[facility] [place], [place] [phone] C-Reactive Proteinon 021 CRP [Mass/Vol] mg/L Normal 0.1-0.89 [facility] Comment on above: Performed By: #### P REALB, TRANSF #### [facility] [address] [place], [place] [address] C3 Complementon 11-11-2020 C3 Complement 122 mg/dL Normal 86-166 [facility] Comment on above: Performed By: #### P REALB, TRANSF #### [facility] [address] [place], [place] [address] C4 Complementon 11-11-2020 C4 Complement 26 mg/dL Normal 13-46 [facility] Comment on above: Performed By: #### P REALB, TRANSF #### [facility] [address] [place], [place] [id number] CBCon 11-11-2020 Absolute nRBC <0.01 Normal <0.01 [facility] Erythrocyte distribution width (RBC) [Ratio] 16.6 % High 11.5-15.0 [facility] Hematocrit (Bld) [Volume fraction] 30.0 % Low 36.0-46.0 [facility] Hemoglobin (Bld) [Mass/Vol] 8.9 g/dL Low 11.5-15.5 [facility] MCH 26.5 pG Normal 26.0-34.0 [facility] MCHC (RBC) [Mass/Vol] 29.7 g/dL Low 30.5-36.0 [facility] MCV (RBC) [Entitic vol] 89.3 fL Normal 80.0-100.0 [facility] Platelet mean volume (Bld) [Entitic vol] 11.5 fL Normal 9.0-12.7 [facility] Platelets (Bld) [#/Vol] 155 10*3/uL Normal 150-400 [facility] RBC (Bld) [#/Vol] 3.36 10*6/uL Low 3.90-5.20 [facility] WBC (Bld) [#/Vol] 4.41 10*3/uL Normal 3.70-11.00 [facility] CONSULTon 11-11-2020 CONSULT HNO ID: [id number] Author: Christopher Gonzalez V, MD Service: Infectious [...] Obesity, Class III, BMI 40-49.9 (morbid obesity) ([facility]) - Port-A-Cath in place patients right [...] tenderness PSYCH: No (more content not included)... [facility] NURSING PROGon 11-11-2020 NURSING PROG HNO ID: [id number] Author: Anne-Marie Farley, RN Service: Nursing Author Type: Registered Nurse Type: Nursing Progress Note Filed: 11/11/2020 9:50 PM Note Text: Nursing Progress Note Patient Name: Maricarmen Anderson Patient Location: AR/ AR- Daily Note: 1945 received report, assumed pt care. According to medical team it is ok to use medport. 2147 Pt actively throwing up. Holding medications to be given when patient can swallow. 2147 Resident paged. This note was completed by: Anne-Marie Farley [facility] NURSING PROG HNO ID: [id number] Author: Carolina Lowry RN Service: ? Author Type: Registered Nurse Type: Nursing Progress Note Filed: 11/11/2020 7:46 PM Note Text: Nursing Progress Note Patient Name: Maricarmen Anderson Patient Location: [place]/ [place] Daily Note:Nursing assessment completed see NPR. No signs of distress. 1600 Spoke with the surgery doctor, ok to continue using medport. This note was completed by: Carolina Lowry [facility] ALLIED HEALTHon 11-10-2020 ALLIED HEALTH HNO ID: [id number] Author: RT Mary(R) Service: Radiology Author Type: Shipmaster Type: Allied Health Filed: 11/09/2020 11:44 PM [...] Mary(R) November 09, 2020 11:44 PM Normal [facility] Basic Metabolic Panlon 11-10 Anion gap [Moles/Vol] 9 mmol/L Normal 0-15 [facility] Calcium [Mass/Vol] 8.9 mg/dL Normal 8.5-10.2 [facility] Chloride [Moles/Vol] 114 mmol/L High 97-105 [facility] CO2 [Moles/Vol] 20 mmol/L Low 22-30 [facility] Creatinine [Mass/Vol] 0.83 mg/dL Normal 0.58-0.96 [facility] eGFR- Amer. >60 Normal [facility] eGFR-All Other Races >60 Normal [facility] Comment on above: Result Comment: eGFR [...] GFR. Glucose [Mass/Vol] 93 mg/dL Normal 74-99 [facility] Potassium [Moles/Vol] 3.9 mmol/L Normal 3.7-5.1 [facility] Sodium [Moles/Vol] 143 mmol/L Normal 136-144 [facility] Urea nitrogen [Mass/Vol] 16 mg/dL Normal 7-21 [facility] CASE MGT INIT ASSESon 2020 CASE MGT INIT [facility] HNO ID: [id number] Author: Estela Avila RN Service: ? Author Type: Registered Nurse Type: Care Mgt Initial Assessment Filed: 11/10/2020 9:47 AM Note Text: CARE MANAGEMENT: ASSESSMENT AND DISCHARGE PLAN SERVICE DATE: November 10, 2020 SERVICE TIME: 944 PRIMARY CARE PHYSICIAN: Viktor Sotelo MD ADMISSION STATUS: Observation Needs Prior to Discharge: Other: See Comment (Medical clearance) MEDICAL: MEDICARE A AND B Patient/Shipmaster Stated Goals: To return home to life as it was Health Insurance: Medicare;Medicaid Health Issues Impacting Discharge Plan: None Last Discharge Date: 09/29/20 Is this Within the Past 30 days? Last discharge within 30 days: No Advance Directive: Current Advance Directive: None Property Administrator Attempted to Assist with AD Completion: Yes [...] None Has the Patient Been in a Correction Facility in the Past 30 days?: No SOCIAL: Living Arrangements: Home Lives With: Son Financial Resources: Disabled Primary Contact: Extended Emergency Contact Information Primary Emergency Contact: Khalida Anaya Mobile Relation: Sister Secondary Emergency Contact: Lucero Chaves Mobile Relation: Mother Supportive Patient Contact:: Yes Contact Resources: Family Family Name/Phone: Sister Khalida Anaya/[phone] Caregiver AssessmentCaregiver is ready, willing and able [...] Completely I feel financially burdened by my [id number] expenses for my prescription medication:: 0 - Disagree Completely Risk Score: 0 Patient is categorized as: Low risk < 2 Are you interested in bedside delivery of your medications? No Is Patient Psychosocially Complex?: No ASSESSMENT AND PLAN: Medical Needs: Medical Needs: Two or more chronic diseases Psychosocial Needs: Psychosocial Needs: None FREEDOM OF CHOICE EXPLAINED: [place] of Choice Given: No Reason Not Given: [...] 10, 2020 TIME: 9:45 AM PAGER/CONTACT #: [phone] Normal [facility] CBCon 11-10-2020 Absolute nRBC <0.01 Normal <0.01 [facility] Erythrocyte distribution width (RBC) [Ratio] 16.6 % High 11.5-15.0 [facility] Hematocrit (Bld) [Volume fraction] 29.0 % Low 36.0-46.0 [facility] Hemoglobin (Bld) [Mass/Vol] 8.6 g/dL Low 11.5-15.5 [facility] MCH 26.5 pG Normal 26.0-34.0 [facility] MCHC (RBC) [Mass/Vol] 29.7 g/dL Low 30.5-36.0 [facility] MCV (RBC) [Entitic vol] 89.2 fL Normal 80.0-100.0 [facility] Platelet mean volume (Bld) [Entitic vol] 11.2 fL Normal 9.0-12.7 [facility] Platelets (Bld) [#/Vol] 165 10*3/uL Normal 150-400 [facility] RBC (Bld) [#/Vol] 3.25 10*6/uL Low 3.90-5.20 [facility] WBC (Bld) [#/Vol] 4.26 10*3/uL Normal 3.70-11.00 [facility] NURSING PROGon 11-10-2020 NURSING PROG HNO ID: [id number] Author: Carolina Lowry RN Service: ? Author Type: Registered Nurse Type: Nursing Progress Note Filed: 11/10/2020 9:53 AM Note Text: Nursing Progress Note Patient Name: Maricarmen Anderson Patient [facility] Daily Note:Nursing assessment completed see NPR. No signs of distress. This note was completed by: Carolina Lowry [facility] NUTRITIONon 11-10-2020 NUTRITION HNO ID: [id number] Author: Luz Watson RD Service: Nutrition Therapy [...] Weight loss;Patient/family self-report;Nausea;Vomiti ng Estimated kilocalorie needs: 7647-9085 kcal/day Calorie Calculation Method: 15-20 kcals/kg Estimated protein needs (grams): 76-100 gm protein/day Grams protein determined by: 1.3 - 1.7 g/kg;[place] body weight Care Plan: Continue current diet Supplements: [place] [employer] 1.0;Ensure Clear Monitor and Evaluation: Meet greater [...] protein shake. She ate 1 serving of samoan toast this morning and had emesis following. [...] 2 Frequency 5. DINNER Supplement 3 LORAINE [place] 1.0 VANILLA Supplement 3 Frequency 3. LUNCH [...] November 10, 2020 TIME: 12:50 PM PAGER: [phone] Normal [facility] Urinalysis with Microscopico n 11-10-2020 Bacteria 3+ /HPF Critically abnormal Negative [facility] Bilirubin, Urine Negative Normal Negative [facility] Cast SEE COMMENT Normal 0 [facility] Comment on above: Result Comment: 0 Clarity (U) Clear Normal Clear [facility] Color (U) Yellow Normal Yellow [facility] Crystals LM Nom (Urine sed) SEE COMMENT Critically abnormal Negative [facility] Comment on above: Result Comment: 2+ Calcium Oxalate Epithelial cells LM Ql (Urine sed) SEE COMMENT Critically abnormal Occasional [facility] Comment on above: Result Comment: 1+ Squamous Epithelial Cells Glucose Ql (U) Negative Normal Negative [facility] Hemoglobin/Blood,Ur Negative Normal Negative [facility] Ketones Ql (U) Trace Critically abnormal Negative [facility] Leukest 1+ Critically abnormal Negative [facility] Mucus Ql (Urine sed) 1+ Normal [facility] Nitrite Ql (U) Negative Normal Negative [facility] pH (U) 6.5 [pH] Normal 5.0-8.0 [facility] Protein, Urine Trace Critically abnormal Negative [facility] RBC 3-5 Critically abnormal 0-3 [facility] Specific [place], Ur 1.025 Normal 1.005-1.030 [facility] Urobilinogen Qn (U) 1.0 {José'U}/dL Normal 0.2-1.0 [facility] WBC 26-50 Critically abnormal 0-5 [facility] XR LUMBAR 2V AP/LATon 2020 XR [...] 2V AP/LAT HISTORY: mid back pain (accession [id number]), back pain (accession [id number]) Mid-back/T-spine pain, initial exam. TECHNIQUE: XR THORACIC [...] on Nov 10 2020 7:09AM EST [id number] [facility] XR THORACIC 2V AP/LATon 10-21 XR THORACIC 2V AP/LAT * * *Final Report* * * DATE OF EXAM: Nov 09 2020 11:44PM SPX [id number] - XR THORACIC 2V AP/LAT / PROCEDURE REASON: Mid-back/T-spine pain, initial exam * * * * Physician Interpretation * * * * RESULT: EXAMINATION: XR THORACIC 2V AP/LAT, XR LUMBAR 2V AP/LAT HISTORY: mid back pain (accession [id number]), back pain (accession [id number]) Mid-back/T-spine pain, initial exam. TECHNIQUE: XR THORACIC [...] on Nov 10 2020 7:09AM EST [id number] [facility] ALLIED HEALTHon 11-09-2020 ALLIED HEALTH HNO ID: [id number] Author: Uzair Monroy Service: Radiology Author Type: Shipmaster Type: Allied Health Filed: 11/09/2020 7:56 AM [...] Uzair Monroy November 09, 2020 7:55 AM [facility] ALLIED HEALTH HNO ID: [id number] Author: Uzair Monroy Service: Radiology Author Type: Shipmaster Type: [facility] Filed: 11/09/2020 7:51 AM Note Text: [...] Uzair Monroy November 09, 2020 7:51 AM [facility] Blood Cultureon 11-09-2020 Bacteria identified Cx Nom (Bld) Culture Result - No growth 5 days Normal [facility] Comment on above: Performed By: #### B LCUL ####[facility] [place], [place] [phone] Bacteria identified Cx Nom (Bld) Additional Testing [...] and read back by: Nika Gore RN [facility] --> ABNORMAL ALERT [address] Surg 11/11/20 0122 Chuckie Sharpe --> ABNORMAL ALERT Methicillin resistant Staphylococcus epidermidis (MRSE) detected by --> ABNORMAL ALERT microarray. Single positive cultures of S. epidermidis usually --> ABNORMAL ALERT represent contamination. Call lab within 72 h if further work up is --> ABNORMAL ALERT required. Negative for Streptococcus spp. and Enterococcus spp. by --> ABNORMAL ALERT microarray.(*) Called to and read back by: BRANDIE QUINN from [facility] --> ABNORMAL ALERT 11/11/20 at 0523 to [place] --> ABNORMAL ALERT --> ABNORMAL ALERT Critically abnormal [facility] Comment on above: Performed By: #### B LCUL ####[facility] [address] [place], [place] [phone] CBC and Differentialon 11-09 Abs Baso <0.03 Normal <0.11 [facility] Abs [place] 0.29 k/uL Normal <0.87 [facility] Abs Neut 3.25 k/uL Normal 1.45-7.50 [facility] Absolute nRBC <0.01 Normal <0.01 [facility] Basophils/100 WBC (Bld) 0.4 % Normal [facility] DTYPE Auto Diff Normal [facility] Eosinophils (Bld) [#/Vol] 0.04 10*3/uL Normal <0.46 [facility] Eosinophils/100 WBC (Bld) 0.8 % Normal [facility] Erythrocyte distribution width (RBC) [Ratio] 16.3 % High 11.5-15.0 [facility] Hematocrit (Bld) [Volume fraction] 31.9 % Low 36.0-46.0 [facility] Hemoglobin (Bld) [Mass/Vol] 9.6 g/dL Low 11.5-15.5 [facility] Lymphocytes (Bld) [#/Vol] 1.33 10*3/uL Normal 1.00-4.00 [facility] Lymphocytes/100 WBC (Bld) 26.9 % Normal [facility] MCH 26.0 pG Normal 26.0-34.0 [facility] MCHC (RBC) [Mass/Vol] 30.1 g/dL Low 30.5-36.0 [facility] MCV (RBC) [Entitic vol] 86.4 fL Normal 80.0-100.0 [facility] Monocytes/100 WBC (Bld) 5.9 % Normal [facility] Neutrophils/100 WBC (Bld) 66.0 % Normal [facility] NRBCs 0.0 /100 WBC Normal 0 [facility] Platelet mean volume (Bld) [Entitic vol] 11.0 fL Normal 9.0-12.7 [facility] Platelets (Bld) [#/Vol] 173 10*3/uL Normal 150-400 [facility] RBC (Bld) [#/Vol] 3.69 10*6/uL Low 3.90-5.20 [facility] WBC (Bld) [#/Vol] 4.95 10*3/uL Normal 3.70-11.00 [facility] CTA ABD/PELV W IVCONon 11-09 CTA ABD/PELV W IVCON * * *Final Report* * * DATE OF EXAM: Nov 09 2020 10:53AM [facility] 0311 - CTA ABD/PELV W IVCON / [...] on Nov 09 2020 10:53AM EST [id number] [facility] CTA CHEST (NONGATED) W IVCON on 11-09-2020 CTA CHEST (NONGATED) W IVCON * * *Final Report* * * DATE OF EXAM: Nov 09 2020 10:53AM [facility] 0123 - CTA CHEST (NONGATED) W IVCON [...] Nov 09 2020 10:53AM EST [id number] Normal [facility] Comp Metabolic Panelon 11-09 Albumin [Mass/Vol] 3.9 g/dL Normal 3.5-5.0 [facility] ALP [Catalytic activity/Vol] 56 U/L Normal 34-123 [facility] ALT [Catalytic activity/Vol] 9 U/L Normal 7-38 [facility] Anion gap [Moles/Vol] 9 mmol/L Normal 0-15 [facility] AST [Catalytic activity/Vol] 16 U/L Normal 13-35 [facility] Bilirubin [Mass/Vol] 0.5 mg/dL Normal 0.2-1.3 [facility] Calcium [Mass/Vol] 9.4 mg/dL Normal 8.5-10.2 [facility] Chloride [Moles/Vol] 110 mmol/L High 97-105 [facility] CO2 [Moles/Vol] 21 mmol/L Low 22-30 [facility] Creatinine [Mass/Vol] 0.75 mg/dL Normal 0.58-0.96 [facility] eGFR- Amer. >60 Normal [facility] eGFR-All Other Races >60 Normal [facility] Comment on above: Result Comment: eGFR [...] GFR. Glucose [Mass/Vol] 91 mg/dL Normal 74-99 [facility] Potassium [Moles/Vol] 3.6 mmol/L Low 3.7-5.1 [facility] Protein [Mass/Vol] 6.6 g/dL Normal 6.3-8.0 [facility] Sodium [Moles/Vol] 140 mmol/L Normal 136-144 [facility] Urea nitrogen [Mass/Vol] 17 mg/dL Normal 7-21 [facility] D dimeron 11-09-2020 D dimer 770 ng/mL FEU High <500 [facility] Comment on above: Result Comment: 500 [...] al. MAE 2014 [id number] and Irving Sprague N, et al. Kellen Int Med 2016 165:253. ED NOTEon 11-09-2020 ED NOTE HNO ID: [id number] Author: Yaya Singletary RN Service: ? Author Type: Registered Nurse Type: ED Notes Filed: 11/09/2020 1:34 PM Note Text: Report called to Abbey RN. All questions addressed. Vitals updated. Family at bedside. Pt NAD at this time. This RN at bedside to transport pt. Floor nurse aware of blood cultures and covid in process. [facility] ED NOTE HNO ID: [id number] Author: Yaya Singletary RN Service: ? Author Type: Registered Nurse Type: ED Notes Filed: 11/09/2020 7:44 AM Note Text: Portable CXR at bedside. [facility] ED NOTE HNO ID: [id number] Author: Yaya Singletary RN Service: ? Author Type: Registered Nurse Type: ED Notes Filed: 11/09/2020 7:18 AM Note Text: Assumed care of patient from Traci DIEGO. Pt in room standing up at bedside with emesis bag. NAD or active vomiting at this time. Joy PAULSON in room to talk with patient. [facility] ED NOTE HNO ID: [id number] Author: Connie Vazquez RN Service: ? Author [...] was told her gastroparesis was the diagnosis [facility] ED PROV NOTEon 11-09-2020 ED PROV NOTE HNO ID: [id number] Author: Mckenna Moreno DO Service: Emergency Medicine [...] she was admitted to a hospital in [place] for 3 days from Thursday to Thursday [...] venous embolism and thrombosis of brachial vein ([facility]) 2013 due to IV infiltrate, 2013, also on OCPs - Eosinophilic esophagitis - Gastroparesis - GERD (gastroesophageal reflux disease) - History of gastric bypass complications - Obesity, Class III, BMI 40-49.9 (morbid obesity) ([facility]) - Port-A-Cath in place patients right [...] is w (more content not included)... Normal [facility] HISTORY PHYSICALon HISTORY PHYSICAL HNO ID: [id number] Author: Ashley Loo MD Service: General Surgery [...] on analysis and urine culture was sent. COVID stll pending, blood cultures drawn and pending. PAST MEDICAL HISTORY: PAST MEDICAL HISTORY Diagnosis Date - Acute venous embolism and thrombosis of brachial vein ([facility]) 2013 due to IV infiltrate, 2013, also on OCPs - Eosinophilic esophagitis - Gastroparesis - GERD (gastroesophageal reflux disease) - History of gastric bypass complications - Obesity, Class III, BMI 40-49.9 (morbid obesity) ([facility]) - Port-A-Cath in place patients right [...] Allergen Reactions (more content not included)... Normal [facility] High Sens Troponin Ton 11-09 High Sensitivity SALLY 6 ng/L Normal <12 [facility] Comment on above: Result Comment: When [...] High Sensitivity SALLY 6 ng/L Normal <12 [facility] Comment on above: Result Comment: When [...] CRISTINA+probe Ql (Unsp spec) Nasopharyngeal Swab Normal [facility] Comment on above: Performed By: #### I TCOVD ####[facility] [place], [place] [phone] SARS-CoV-2 (COVID-19) RNA CRISTINA+probe Ql (Unsp spec) Negative for COVID19 (SARS CoV2) by RT-PCR or equivalent method. Normal Negative for COVID19 (SARS CoV2) by RT-PCR or equivalent method. [facility] Comment on above: Result Comment: This test was developed and its performance characteristics determined by [facility] [place]. This test has been authorized by FDA under an Emergency Use Authorization (EUA). This test has been validated in accordance with the FDA's Guidance Document Policy for Diagnostics Testing in Laboratories Certified to Perform High Complexity Testing under CLIA prior to Emergency use Authorization for Coronavirus Disease 2019 during the Public Health Emergency issued on August 20, 2019. Test performed by [facility], [facility] [place], [address], [place] [address]. Performed By: #### I TCOVD ####[facility] [place], [place] [phone] Lipaseon 11-09-2020 Lipase [Catalytic activity/Vol] 21 U/L Normal 16-61 [facility] NURSING PROGon 11-09-2020 NURSING PROG HNO ID: [id number] Author: Saskia Cm RN Service: ? Author Type: Registered Nurse Type: Nursing Progress Note Filed: 11/10/2020 6:04 AM Note Text: Nursing Progress Note Patient Name: Maricarm[facility] [address] [address] Daily Note: Received report from BRANDIE Joel. 2020: Assessment completed, patient states feeling better than she did earlier today. Safety maintained, will continue to monitor. 2215: Observed patient asleep. 0005: Patient back up to floor from radiology. 0200: Observed patient asleep. 0309: Blood work collected. 0500: Observed patient asleep. 0603: Patient rates pain 8/10; paged resident. This note was completed by: Saskia Cm Normal [facility] NURSING PROG HNO ID: [id number] Author: Wisam Carvajal RN Service: ? Author Type: Registered Nurse Type: Nursing Progress Note Filed: 11/09/2020 7:00 PM Note Text: Nursing Progress Note Patient Name: Maricarmen Anderson Patient Location: AR/ AR Daily Note: 1454: assessment complete, patient complains of severe left flank pain and nausea, will continue to monitor 1845: Blood cultures collected and sent to lab This note was completed by: Wisam Carvajal [facility] NURSING PROG HNO ID: [id number] Author: Wisam Carvajal RN Service: ? Author Type: Registered Nurse Type: Nursing Progress Note Filed: 11/09/2020 5:16 PM Note Text: Nursing Progress Note Patient Name: Maricarmen Anderson Patient Location: AR/ AR Transfer Note: Patient transferred into room/unit 931 in stable condition. Actions taken: No futher actions taken at this time. Will continue to monitor and check with patient. This note was completed by: Wisam Carvajal [facility] Urinalysis with Microscopico n 11-09-2020 Bacteria 3+ /HPF Critically abnormal Negative [facility] Bilirubin, Urine Negative Normal Negative [facility] SEE COMMENT Normal 0 [facility] Comment on above: Result Comment: 0 Clarity (U) Slightly Cloudy Critically abnormal Clear [facility] Color (U) Yellow Normal Yellow [facility] Epithelial cells LM Ql (Urine sed) SEE COMMENT Critically abnormal Occasional [facility] Comment on above: Result Comment: 2+ Squamous Epithelial Cells Glucose Ql (U) Negative Normal Negative [facility] Hemoglobin/Blood,Ur Negative Normal Negative [facility] Ketones Ql (U) Negative Normal Negative [facility] Leukest 1+ Critically abnormal Negative [facility] Nitrite Ql (U) Negative Normal Negative [facility] pH (U) 6.5 [pH] Normal 5.0-8.0 [facility] Protein, Urine Trace Critically abnormal Negative [facility] RBC 0-3 Normal 0-3 [facility] Specific [place], Ur >=1.030 Normal 1.005-1.030 [facility] Urobilinogen Qn (U) 2.0 {José'U}/dL High 0.2-1.0 [facility] WBC 6-10 Critically abnormal 0-5 [facility] Urine Cultureon 11-09-2020 Bacteria identified Cx [...] - <10,000 CFU/ml Normal urogenital yogesh Normal [facility] Comment on above: Performed By: #### U RCUL ####[facility] [address] [place], [place] [phone] XR CHEST 1V FRONTAL PORTon 0 11-09-2020 [...] on Nov 09 2020 7:59AM EST [id number] [facility] 11-08-2020 CNPN Telephone (GENSSP) ----- MARICARMEN ANDERSON ([id number]) 1980 F [facility] Date Time Provider Department 11/08/20 CLEMENTE ENG During your visit today, we recorded the following information about you: BYRON Richter 11/08/2020 9:29 AM Signed Called PCP office (Dr Viktor Sotelo) [phone] is out of the office this week. Asked if Nurse could fax copies of recent lab work, imaging that may have been done while patient was recently hospitalized last week. BYRON Richter CT 11/09/2020 8:17 AM Signed Outside records received and scanned to [facility] Forwarded to Dr Eng. BYRON Richter [...] Encounter Status:Closed by NICOLETTE SANCHEZ on 11/09/20 [facility] 11-05-2020 CNPN Telephone (Amgen) ----- MARICARMEN ANDERSON ([id number]) 1980 F [facility] Date Time Provider Department 11/05/20 CLEMENTE ENG During your visit today, we recorded the following information about you: Nicolette BYRON Sanchez 11/05/2020 9:58 AM Signed Patient called. She [...] one. She doesn't want the [place]. Nicolette BYRON Sanchez Allergies As of Date: 11/05/2020 Noted Allergy Reaction DILAUDID (HYDROMORPHONE (BULK)) 03/28/2019 9 - Itching Date Reviewed: 09/29/2020 Reviewed by: Anne-Marie (Rn) BRANDIE Farley - Fully Assessed Reason for Visit: Patient Question [1477] Prescriptions as of 11/05/2020 Sig: LORAZEPAM 0.5 [...] Status:Closed by CARLOS ALBERTO SIMMONS on 11/07/20 [facility] 2020 [facility]NSCAMN[facility] ----- MARICARMEN ANDERSON ([id number]) 1980 F T Date Time Provider Department 10/30/20 EMELIA BALDWIN [facility] During your visit today, we recorded the following information about you: Urmila Hein [facility] 2020 8:29 AM Signed Order Request Caller : Maricarmen Contact Order Being Requested : MRI Cervical Spine Orders need to be placed in [facility] Laith Donaldson RN 2020 12:42 PM Signed [...] 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 We will close this out of the actionable findings registry. Actionable Findings follow up status: Complete Doug Duncan PA-C October 22, 2020 12:28 PM Allergies As of Date: 10/22/2020 Noted Allergy Reaction DILAUDID (HYDROMORPHONE (BULK)) 03/28/2019 9 - Itching Date Reviewed: 09/29/2020 Reviewed by: Anne-Marie (Rn) BRANDIE Farley - Fully Assessed Reason for Visit: Radio Imaging Study Comments [7074] Prescriptions as of 10/22/2020 Sig: IV CONTRAST [...] Encounter Status:Closed by CLEMENTE ENG on 10/22/20 [facility] CNPN Telephone ([employer]) ----- MARICARMEN ANDERSON ([id number]) 1980 F T Date Time Provider Department 10/08/20 CLEMENTE ENG During your visit today, we recorded the following information about you: BYRON Richter, BYRON 10/08/2020 8:20 AM Signed Patient states she [...] diagnosed with a UTI BYRON Richter CT, BYRON 10/08/2020 10:[address] Eng patient should come to the ER at [facility] if she is dehydrated and a [...] Fully Assessed Reason for Visit: Patient Question [5717] Prescriptions as of 10/08/2020 Sig: ACETAZOLAMIDE 250 [...] Status:Closed by NICOLETTE KING on 10/09/20 Normal [facility] Basic Metabolic Panlon 09-29 Anion gap [Moles/Vol] 10 mmol/L Normal 0-15 [facility] Comment on above: Performed By: #### P REALB ####[facility] [address] [place], [place] [phone] Calcium [Mass/Vol] 9.4 mg/dL Normal 8.5-10.2 [facility] Comment on above: Performed By: #### P REALB ####[facility] [address] [place], [place] [phone] Chloride [Moles/Vol] 110 mmol/L High 97-105 [facility] Comment on above: Performed By: #### P REALB ####[facility] [address], [place] [phone] CO2 [Moles/Vol] 20 mmol/L Low 22-30 [facility] Comment on above: Performed By: #### P REALB ####[facility] [place], [place] [phone] Creatinine [Mass/Vol] 0.75 mg/dL Normal 0.58-0.96 [facility] Comment on above: Performed By: #### P REALB ####[facility], [place] [phone] eGFR- Amer. >60 Normal [facility] Comment on above: Performed By: #### P REALB ####[place] [address] [address] [place], [place] [phone] eGFR-All Other Races >60 Normal [facility] Comment on above: Result Comment: eGFR [...] actual GFR. Performed By: #### P REALB ####[facility] [address], [place] [phone] Glucose [Mass/Vol] 108 mg/dL High 74-99 [facility] Comment on above: Performed By: #### P REALB ####[facility], [place] [phone] Potassium [Moles/Vol] 3.6 mmol/L Low 3.7-5.1 [facility] Comment on above: Performed By: #### P REALB ####[facility] [address] [place], [place] [phone] Sodium [Moles/Vol] 140 mmol/L Normal 136-144 [facility] Comment on above: Performed By: #### P REALB ####[facility] [address] [place], [place] [phone] Urea nitrogen [Mass/Vol] 12 mg/dL Normal 7-21 [facility] Comment on above: Performed By: #### P REALB ####[facility] [address] [place], [place] [phone] CASE MANAGEMon 09-29-2020 CASE MANAGEM HNO ID: [id number] Author: Wiliam Santamaria Service: Case Management Author [...] the process utilized to ensure compliance with [facility] policy regarding Inpatient Admission and Observation Services. [...] physician's order as documented evidence of concurrence. [facility] CASE MGT INYANIQUE Ray 2020 CASE MGT INYANIQUE PATEL HNO ID: [id number] Author: Anaid (Rn) BRANDIE Valencia Service: ? 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 Last discharge within 30 days: No Advance Directive: Current Advance Directive: None Property Administrator Attempted to Assist with AD Completion: Yes [...] supplies Has the Patient Been in a Correction Facility in the Past 30 days?: No [...] Mostly I feel financially burdened by my [id number] expenses for my prescription medication:: 0 - Disagree Mostly Risk Score: 0 Patient is categorized as: Low risk < 2 Are you interested in bedside delivery of your medications? Not known ASSESSMENT AND PLAN: Medical Needs: Medical Needs: Two or more chronic diseases;Nutritional Nutrition Needs: Tube Feed Psychosocial Needs: Psychosocial Needs: None FREEDOM OF CHOICE EXPLAINED: [place] of Choice Given: No (No new placeement needed and to continue with [facility]) POTENTIAL TRANSITION PLANS Home Care;Home Care Pharmacy Patient's young son lives with her, and when asked, she states that she is independent. Patient is on home enteral tube feedings via jejunostomy and here for malfunctioning tube. Provider is [employer] and referral sent. Patient is independent [...] 29, 2020 TIME: 11:04 AM PAGER/CONTACT #: [phone] Normal [facility] CBCon 09-29-2020 Absolute nRBC <0.01 Normal <0.01 [facility] Comment on above: Performed By: #### P REALB ####[facility] [place], [place] [phone] Erythrocyte distribution width (RBC) [Ratio] 15.3 % High 11.5-15.0 [facility] Comment on above: Performed By: #### P REALB ####[address] [phone] Hematocrit (Bld) [Volume fraction] 30.3 % Low 36.0-46.0 [facility] Comment on above: Performed By: #### P REALB ####[address] [phone] Hemoglobin (Bld) [Mass/Vol] 9.1 g/dL Low 11.5-15.5 [facility] Comment on above: Performed By: #### P REALB ####[address] [phone] MCH 25.9 pG Low 26.0-34.0 [facility] Comment on above: Performed By: #### P REALB ####[place] [address] [place], [place] [phone] MCHC (RBC) [Mass/Vol] 30.0 g/dL Low 30.5-36.0 [facility] Comment on above: Performed By: #### P REALB ####[address] [phone] MCV (RBC) [Entitic vol] 86.3 fL Normal 80.0-100.0 [facility] Comment on above: Performed By: #### P REALB ####[place] [address] [place], [place] [phone] Platelet mean volume (Bld) [Entitic vol] 10.6 fL Normal 9.0-12.7 [facility] Comment on above: Performed By: #### P REALB ####[address] [place], [place] [phone] Platelets (Bld) [#/Vol] 170 10*3/uL Normal 150-400 [facility] Comment on above: Performed By: #### P REALB ####[facility] [address] [place], [place] [phone] RBC (Bld) [#/Vol] 3.51 10*6/uL Low 3.90-5.20 [facility] Comment on above: Performed By: #### P REALB ####[facility] [address] [place], [place] [phone] WBC (Bld) [#/Vol] 6.60 10*3/uL Normal 3.70-11.00 [facility] Comment on above: Performed By: #### P REALB ####[facility] [address] [place], [place] [phone] CNDSon 09-29-2020 CNDS HNO ID: [id number] Author: Maynor Manley DO Service: General Surgery [...] DATE: September 29, 2020 TIME: 11:09 AM [facility] CT ABD/PEL WO IVCONon 2020 CT ABD/PEL WO IVCON * * *Final Report* * * DATE OF EXAM: Sep 28 2020 10:39PM [facility] 0531 - CT ABD/PEL WO IVCON / [...] Tissues: No acute abnormality. Lower thorax: Unremarkable. Fire Watchman (topogram) images: No additional findings. IMPRESSION: Retracted [...] Sep 28 2020 11:12PM EST [id number] Normal [facility] Coronavirus 2019on 1 SARS-CoV-2 (COVID-19) RNA CRISTINA+probe Ql (Unsp spec) Nasopharyngeal Swab Normal [facility] Comment on above: Performed By: #### C OVID ####[facility] [place], [place] [phone] SARS-CoV-2 (COVID-19) RNA CRISTINA+probe Ql (Unsp spec) Negative Normal Negative for COVID19 (SARS CoV2) by PCR. [facility] Comment on above: Result Comment: This test was developed and its performance characteristics determined by [facility] [place]. This test has been authorized by FDA under an Emergency Use Authorization (EUA). This test has been validated in accordance with the FDA's Guidance Document Policy for Diagnostics Testing in Laboratories Certified to Perform High Complexity Testing under CLIA prior to Emergency use Authorization for Coronavirus Disease 2019 during the Public Health Emergency issued on August 20, 2019. Test performed by [facility], [facility] [place], [address], [place] [address]. Performed By: #### C OVID ####[facility] [place], [place] [phone] ED NOTEon 09-29-2020 ED NOTE HNO ID: [id number] Author: Soco VasquezRn) BRANDIE Bardales Service: ? Author Type: Registered Nurse Type: ED Notes Filed: 09/28/2020 11:04 PM Note Text: covid obtained and sent. [facility] NURSING PROGon 09-29-2020 NURSING PROG HNO ID: [id number] Author: Mercy VasquezRn) BRANDIE Whitaker Service: ? Author Type: Registered Nurse Type: Nursing Progress Note Filed: 09/29/2020 12:51 PM Note Text: Nursing Progress Note Patient Name: Maricarmen Anderson Patient Location: AR/ AR- Daily Note: patient resting in bed, made NPO for removal of J-tube. This note was completed by: Mercy Whitaker RN [facility] NURSING PROG HNO ID: [id number] Author: Anne-Marie VasquezRnNorth Farley RN Service: Nursing Author Type: Registered Nurse Type: Nursing Progress Note Filed: 09/29/2020 7:33 AM Note Text: Nursing Progress Note Patient Name: Maricarmen Anderson Patient Location: AR6/ AR-906-1 Daily Note: 0054 Pt arrived in room, oriented to floor and room, safety maintained. 0100 Pt has a fever tylenol given. 0733 Report given to Mercy (Rn). This note was completed by: Anne-Marie Farley RN [facility] NUTRITIONon 09-29-2020 NUTRITION HNO ID: [id number] Author: Molly Tello) Gurpreet Service: Nutrition Therapy Author Type: Registered Dietitian Type: Nutrition Filed: 09/29/2020 11:21 AM Note Text: NUTRITION THERAPY INITIAL ASSESSMENT SERVICE DATE: 09/29/2020 SERVICE TIME: 11:13 AM Nutrition Assessment: Recommended Malnutrition Diagnosis: No Malnutrition Identified Nutrition Diagnosis: Problem: Inadequate Enteral Nutrition Infusion Related to: Mechanical cause As evidenced by: Patient/family self-report Estimated kilocalorie needs: 2269 Calorie Calculation Method: [place]. [place] (with activity factor) (1.3) Estimated protein needs (grams): 77-100 Grams protein determined by: 1.3 - 1.7 g/kg;[place]bo[place] body weight Care Plan: Advance diet to regular diet with TF Supplements: zone bar, Boost GC, and loraine ShopEx each daily Enteral Nutrition Tube Feeding Formula Type: Loraine ClickMechanic Peptide 1.5 Goal Rate (mL/hr x hours): [...] NOW Question Answer Comment Supplement 1 ZONE [facility] STRAWBERRY [facility]URT Supplement 1 Frequency 7. BREAKFAST, LUNCH, DINNER Supplement 2 BOOST GLUCOSE CONTROL STRAWBERRY Supplement 2 Frequency 7. BREAKFAST, LUNCH, DINNER Supplement 3 LORAINE [place] 1.0 CHOCOLATE Supplement 3 Frequency 7. BREAKFAST, [...] Assess/15 min 3 units SIGNATURE: Molly Vázquez, ,RD,LD,CNSC PATIENT NAME: Maricarmen Anderson DATE: September 29, 2020 TIME: 11:13 AM PAGER: [phone] Normal [facility] Prealbuminon 09-29-2020 Prealbumin [Mass/Vol] 21 mg/dL Normal 17-36 [facility] Comment on above: Performed By: #### P REALB ####[facility] [place], [place] [phone] CBC and Differentialon 09-28 Abs Baso <0.03 Normal <0.11 [facility] Abs [place] 0.28 k/uL Normal <0.87 [facility] Abs Neut 5.26 k/uL Normal 1.45-7.50 [facility] Absolute nRBC <0.01 Normal <0.01 [facility] Basophils/100 WBC (Bld) 0.3 % Normal [facility] DTYPE Auto Diff Normal [facility] Eosinophils (Bld) [#/Vol] 0.04 10*3/uL Normal <0.46 [facility] Eosinophils/100 WBC (Bld) 0.6 % Normal [facility] Erythrocyte distribution width (RBC) [Ratio] 15.2 % High 11.5-15.0 [facility] Hematocrit (Bld) [Volume fraction] 31.5 % Low 36.0-46.0 [facility] Hemoglobin (Bld) [Mass/Vol] 9.3 g/dL Low 11.5-15.5 [facility] Lymphocytes (Bld) [#/Vol] 0.93 10*3/uL Low 1.00-4.00 [facility] Lymphocytes/100 WBC (Bld) 14.2 % Normal [facility] MCH 25.6 pG Low 26.0-34.0 [facility] MCHC (RBC) [Mass/Vol] 29.5 g/dL Low 30.5-36.0 [facility] MCV (RBC) [Entitic vol] 86.8 fL Normal 80.0-100.0 [facility] Monocytes/100 WBC (Bld) 4.3 % Normal [facility] Neutrophils/100 WBC (Bld) 80.6 % Normal [facility] NRBCs 0.0 /100 WBC Normal 0 [facility] Platelet mean volume (Bld) [Entitic vol] 10.4 fL Normal 9.0-12.7 [facility] Platelets (Bld) [#/Vol] 186 10*3/uL Normal 150-400 [facility] RBC (Bld) [#/Vol] 3.63 10*6/uL Low 3.90-5.20 [facility] WBC (Bld) [#/Vol] 6.54 10*3/uL Normal 3.70-11.00 [facility] CNPNon 09-28-2020 CNPN Telephone (GENSSP) ----- MARICARMEN ANDERSON ([id number]) 1980 [facility] Date Time Provider Department 09/28/20 CLEMENTE ENG During your visit today, we recorded the following information about you: Nicolette BYRON Sanchez, CT 09/28/2020 11:53 AM Signed Patient states [...] Fully Assessed Reason for Visit: Patient Question [1803] Primary Visit Diagnosis:Gastrojejunosto my tube dislodgement [T85.528A] Order(s):XR ABDOMEN 1V SUPINE [[id number]] Order #: [id number] FUTURE Prescriptions as of 09/28/2020 Sig: ACETAZOLAMIDE [...] Encounter Status:Closed by NICOLETTE KING on 09/28/20 Normal [facility] CONSULTon 09-28-2020 CONSULT HNO ID: [id number] Author: Elissa Medina MD Service: General Surgery [...] Obesity, Class III, BMI 40-49.9 (morbid obesity) ([facility]) - Port-A-Cath in place patients right [...] swelling RESPIRATO (more content not included)... Normal [facility] Comp Metabolic Panelon 09-28 Albumin [Mass/Vol] 4.3 g/dL Normal 3.5-5.0 [facility] ALP [Catalytic activity/Vol] 72 U/L Normal 34-123 [facility] ALT [Catalytic activity/Vol] 11 U/L Normal 7-38 [facility] Anion gap [Moles/Vol] 11 mmol/L Normal 0-15 [facility] AST [Catalytic activity/Vol] 19 U/L Normal 13-35 [facility] Bilirubin [Mass/Vol] 0.4 mg/dL Normal 0.2-1.3 [facility] Calcium [Mass/Vol] 9.6 mg/dL Normal 8.5-10.2 [facility] Chloride [Moles/Vol] 110 mmol/L High 97-105 [facility] CO2 [Moles/Vol] 18 mmol/L Low 22-30 [facility] Creatinine [Mass/Vol] 0.68 mg/dL Normal 0.58-0.96 [facility] eGFR- Amer. >60 Normal [facility] eGFR-All Other Races >60 Normal [facility] Comment on above: Result Comment: eGFR [...] GFR. Glucose [Mass/Vol] 97 mg/dL Normal 74-99 [facility] Potassium [Moles/Vol] 3.8 mmol/L Normal 3.7-5.1 [facility] Protein [Mass/Vol] 7.3 g/dL Normal 6.3-8.0 [facility] Sodium [Moles/Vol] 139 mmol/L Normal 136-144 [facility] Urea nitrogen [Mass/Vol] 14 mg/dL Normal 7-21 [facility] ED NOTEon 09-28-2020 ED NOTE HNO ID: [id number] Author: Arminda VasquezRn) BRANDIE Wong Service: ? Author Type: Registered Nurse Type: ED Notes Filed: 09/28/2020 9:17 PM Note Text: Pt has finished Contrast via tube Normal [facility] ED NOTE HNO ID: [id number] Author: Keven VasquezRn) BRANDIE Reid Service: ? [...] rails up x2. Call bagley within reach. [facility] ED PROV NOTEon 09-28-2020 ED PROV NOTE HNO ID: [id number] Author: LORENE Singleton Service: Emergency Medicine Author Type: Physician Door Serviceman Type: ED Provider Notes Filed: 09/28/2020 11:36 [...] Obesity, Class III, BMI 40-49.9 (morbid obesity) ([facility]) - Port-A-Cath in place patients right [...] of the (more content not included)... Normal [facility] [facility] 09-28-2020 Lipase [Catalytic activity/Vol] 30 U/L Normal 16-61 [facility] Basic Metabolic Panlon 05-29 Anion gap [Moles/Vol] 10 mmol/L Normal 0-15 [facility] Calcium [Mass/Vol] 9.2 mg/dL Normal 8.5-10.2 [facility] Chloride [Moles/Vol] 106 mmol/L High 97-105 [facility] CO2 [Moles/Vol] 23 mmol/L Normal 22-30 [facility] Creatinine [Mass/Vol] 0.78 mg/dL Normal 0.58-0.96 [facility] eGFR- Amer. >60 Normal [facility] eGFR-All Other Races >60 Normal [facility] Comment on above: Result Comment: eGFR (Estimated GFR) Units of measure: mL/min/1.73 meters squared eGFR is derived from the reexpressed MDRD Study equation using the following parameters: serum creatinine, age, gender and race. The creatinine assay has been calibrated to be traceable to IDMeshApp. An eGFR <60 mL/min/1.73m2 for >3 months is consistent with chronic kidney disease. Refer to KDOQI guidelines for clinical interpretation. In patients with unstable renal function, e.g. those with acute kidney injury, the eGFR may not accurately reflect actual GFR. Glucose [Mass/Vol] 88 mg/dL Normal 74-99 [facility] Potassium [Moles/Vol] 3.9 mmol/L Normal 3.7-5.1 [facility] Sodium [Moles/Vol] 139 mmol/L Normal 136-144 [facility] Urea nitrogen [Mass/Vol] 8 mg/dL Normal 7-21 [facility] CBC and Differentialon 05-29 Abs Baso <0.03 Normal <0.11 [facility] Abs [place] 0.33 k/uL Normal <0.87 [facility] Abs Neut 2.58 k/uL Normal 1.45-7.50 [facility] Absolute nRBC <0.01 Normal <0.01 [facility] Basophils/100 WBC (Bld) 0.5 % Normal [facility] DTYPE Auto Diff Normal [facility] Eosinophils (Bld) [#/Vol] 0.08 10*3/uL Normal <0.46 [facility] Eosinophils/100 WBC (Bld) 1.9 % Normal [facility] Erythrocyte distribution width (RBC) [Ratio] 13.5 % Normal 11.5-15.0 [facility] Hematocrit (Bld) [Volume fraction] 27.4 % Low 36.0-46.0 [facility] Hemoglobin (Bld) [Mass/Vol] 8.4 g/dL Low 11.5-15.5 [facility] Lymphocytes (Bld) [#/Vol] 1.25 10*3/uL Normal 1.00-4.00 [facility] Lymphocytes/100 WBC (Bld) 29.3 % Normal [facility] MCH 27.6 pG Normal 26.0-34.0 [facility] MCHC (RBC) [Mass/Vol] 30.7 g/dL Normal 30.5-36.0 [facility] MCV (RBC) [Entitic vol] 90.1 fL Normal 80.0-100.0 [facility] Monocytes/100 WBC (Bld) 7.7 % Normal [facility] Neutrophils/100 WBC (Bld) 60.6 % Normal [facility] NRBCs 0.0 /100 WBC Normal 0 [facility] Platelet mean volume (Bld) [Entitic vol] 10.9 fL Normal 9.0-12.7 [facility] Platelets (Bld) [#/Vol] 148 10*3/uL Low 150-400 [facility] RBC (Bld) [#/Vol] 3.04 10*6/uL Low 3.90-5.20 [facility] WBC (Bld) [#/Vol] 4.27 10*3/uL Normal 3.70-11.00 [facility] CNDSon 05-29-2020 CNDS HNO ID: [id number] Author: Deirdre Dejesus Service: General Surgery Author [...] Suppository by RECTAL (more content not included)... [facility] NURSING PROGon 05-29-2020 NURSING PROG HNO ID: [id number] Author: Mitchel (Rn) BRANDIE Larry Service: Nursing Author Type: Registered Nurse Type: Nursing Progress Note Filed: 05/29/2020 3:35 PM Note Text: Nursing Progress Note Patient Name: Maricarmen Anderson Patient Location: AR72/ AR72-2 0730 Assumed care of patient after report from night RN. 1311 tube feed rate increased to goal rate of 55 ml/hr. Dr. Eng (PCP) plans to discharge today. No distress at this time. Patient expressing eagerness to go home [address] Eng he is to have business development intern write up discharge order and instructions. This note was completed by: Mitchel Larry RN [facility] NUTRITIONon 05-29-2020 NUTRITION HNO ID: [id number] Author: Maricarmen Tello) Jack Service: Nutrition Therapy Author Type: Registered Dietitian Type: Nutrition Filed: 05/29/2020 11:16 AM Note Text: NUTRITION THERAPY PROGRESS NOTE SERVICE DATE: 05/29/2020 SERVICE TIME: 11:15 AM Nutrition Assessment: Recommended Malnutrition Diagnosis: Mild Protein-Calorie Malnutrition (05/26/20 1142 : Molly (Maik) Gurpreet) Estimated kilocalorie needs: 2040 Calorie Calculation Method: Inman-St. Jeor (with activity factor)(1.2 AF) Estimated protein needs [...] May 29, 2020 TIME: 11:15 AM PAGER: [phone] [facility] ANES POSTPROC EVALon 020 ANES POSTPROC EVAL HNO ID: [id number] Author: Dennis Coulter Service: ? Author Type: [...] May 28, 2020 TIME: 12:32 PM CSN: [id number] [facility] ANES PRE-OPon 05-28-2020 ANES PRE-OP HNO ID: [id number] Author: Dennis Coulter Service: ? Author Type: [...] Goal r (more content not included)... Normal [facility] Basic Metabolic Panlon 05-28 Anion gap [Moles/Vol] 7 mmol/L Normal 0-15 [facility] Calcium [Mass/Vol] 9.1 mg/dL Normal 8.5-10.2 [facility] Chloride [Moles/Vol] 106 mmol/L High 97-105 [facility] CO2 [Moles/Vol] 29 mmol/L Normal 22-30 [facility] Creatinine [Mass/Vol] 0.68 mg/dL Normal 0.58-0.96 [facility] eGFR- Amer. >60 Normal [facility] eGFR-All Other Races >60 Normal [facility] Comment on above: Result Comment: eGFR (Estimated GFR) Units of measure: mL/min/1.73 meters squared eGFR is derived from the reexpressed MDRD Study equation using the following parameters: serum creatinine, age, gender and race. The creatinine assay has been calibrated to be traceable to IDKS. An eGFR <60 mL/min/1.73m2 for >3 months is consistent with chronic kidney disease. Refer to KDOQI guidelines for clinical interpretation. In patients with unstable renal function, e.g. those with acute kidney injury, the eGFR may not accurately reflect actual GFR. Glucose [Mass/Vol] 86 mg/dL Normal 74-99 [facility] Potassium [Moles/Vol] 3.4 mmol/L Low 3.7-5.1 [facility] Sodium [Moles/Vol] 142 mmol/L Normal 136-144 [facility] Urea nitrogen [Mass/Vol] 6 mg/dL Low 7-21 [facility] CBC and Differentialon 05-28 Abs Baso 0.03 k/uL Normal <0.11 [facility] Abs [place] 0.26 k/uL Normal <0.87 [facility] Abs Neut 2.02 k/uL Normal 1.45-7.50 [facility] Absolute nRBC <0.01 Normal <0.01 [facility] Basophils/100 WBC (Bld) 0.9 % Normal [facility] DTYPE Auto Diff Normal [facility] Eosinophils (Bld) [#/Vol] 0.06 10*3/uL Normal <0.46 [facility] Eosinophils/100 WBC (Bld) 1.8 % Normal [facility] Erythrocyte distribution width (RBC) [Ratio] 13.4 % Normal 11.5-15.0 [facility] Hematocrit (Bld) [Volume fraction] 26.2 % Low 36.0-46.0 [facility] Hemoglobin (Bld) [Mass/Vol] 8.2 g/dL Low 11.5-15.5 [facility] Lymphocytes (Bld) [#/Vol] 0.97 10*3/uL Low 1.00-4.00 [facility] Lymphocytes/100 WBC (Bld) 29.0 % Normal [facility] MCH 27.8 pG Normal 26.0-34.0 [facility] MCHC (RBC) [Mass/Vol] 31.3 g/dL Normal 30.5-36.0 [facility] MCV (RBC) [Entitic vol] 88.8 fL Normal 80.0-100.0 [facility] Monocytes/100 WBC (Bld) 7.8 % Normal [facility] Neutrophils/100 WBC (Bld) 60.5 % Normal [facility] NRBCs 0.0 /100 WBC Normal 0 [facility] Platelet mean volume (Bld) [Entitic vol] 10.7 fL Normal 9.0-12.7 [facility] Platelets (Bld) [#/Vol] 157 10*3/uL Normal 150-400 [facility] RBC (Bld) [#/Vol] 2.95 10*6/uL Low 3.90-5.20 [facility] WBC (Bld) [#/Vol] 3.34 10*3/uL Low 3.70-11.00 [facility] NURSING PROGon 05-28-2020 NURSING PROG HNO ID: [id number] Author: Leander (Rn) Sivakumar, RN Service: ? Author Type: Registered Nurse Type: Nursing Progress Note Filed: 05/29/2020 8:02 AM Note Text: Nursing Progress Note Patient Name: Maricarmen Anderson Patient Location: [facility]/ AR-2 Daily Note: 1929 Report received from BRANDIE Ho and barry and care of pt assumed 1944 Safety check performed 2117 Pt assessment completed and pt medicated appropriately 0 Pt is asleep with no signs of distress at this time. Call bagley in reach 07 Report given to BRANDIE Mcdonough/Radu This note was completed by: Leander Shaver RN Normal [facility] NURSING PROG HNO ID: [id number] Author: Albania VasquezRn) BRANDIE King Service: ? Author Type: Registered Nurse Type: Nursing Progress Note Filed: 05/28/2020 12:43 PM Note Text: Nursing Progress Note Patient Name: Maricarmen Anderson Patient [facility] Daily Note: Verbal order from Dr. Gold for fentanyl and zofran IV for patient's pain and nausea. This note was completed by: ALBANIA King RN Normal [facility] NURSING PROG HNO ID: [id number] Author: Georgia (Rn) BRANDIE Mcnair Service: Nursing Author Type: Registered Nurse Type: Nursing Progress Note Filed: 05/28/2020 5:11 PM Note Text: Nursing Progress Note Patient Name: Maricarmen Anderson Patient Location: [facility]/ AR-2 Daily Note: 0700 Report received from BRANDIE [...] was completed by: Georgia Mcnair RN Normal [facility] CBC and Differentialon 05-27 Abs Baso <0.03 Normal <0.11 [facility] Abs [place] 0.29 k/uL Normal <0.87 [facility] Abs Neut 2.00 k/uL Normal 1.45-7.50 [facility] Absolute nRBC <0.01 Normal <0.01 [facility] Basophils/100 WBC (Bld) 0.3 % Normal [facility] DTYPE Auto Diff Normal [facility] Eosinophils (Bld) [#/Vol] 0.08 10*3/uL Normal <0.46 [facility] Eosinophils/100 WBC (Bld) 2.2 % Normal [facility] Erythrocyte distribution width (RBC) [Ratio] 13.6 % Normal 11.5-15.0 [facility] Hematocrit (Bld) [Volume fraction] 25.7 % Low 36.0-46.0 [facility] Hemoglobin (Bld) [Mass/Vol] 8.0 g/dL Low 11.5-15.5 [facility] Lymphocytes (Bld) [#/Vol] 1.34 10*3/uL Normal 1.00-4.00 [facility] Lymphocytes/100 WBC (Bld) 36.0 % Normal [facility] MCH 27.9 pG Normal 26.0-34.0 [facility] MCHC (RBC) [Mass/Vol] 31.1 g/dL Normal 30.5-36.0 [facility] MCV (RBC) [Entitic vol] 89.5 fL Normal 80.0-100.0 [facility] Monocytes/100 WBC (Bld) 7.8 % Normal [facility] Neutrophils/100 WBC (Bld) 53.7 % Normal [facility] NRBCs 0.0 /100 WBC Normal 0 [facility] Platelet mean volume (Bld) [Entitic vol] 10.6 fL Normal 9.0-12.7 [facility] Platelets (Bld) [#/Vol] 150 10*3/uL Normal 150-400 [facility] RBC (Bld) [#/Vol] 2.87 10*6/uL Low 3.90-5.20 [facility] WBC (Bld) [#/Vol] 3.72 10*3/uL Normal 3.70-11.[address] [facility] [address] KIDNEY WO/W IVCONon 05-27 CT KIDNEY WO/W IVCON * * *Final Report* * * DATE OF EXAM: May 27 2020 12:32PM [facility] 0546 - CT KIDNEY WO/W IVCON / [...] hypoventilatory changes in the dependent lung bases. Fire Watchman (topogram) images: No additional findings. IMPRESSION: Hypodense [...] May 27 2020 1:14PM EST [id number] Normal [facility] Comp Metabolic Panelon 05-27 Albumin [Mass/Vol] 3.4 g/dL Low 3.5-5.0 [facility] ALP [Catalytic activity/Vol] 73 U/L Normal 34-123 [facility] ALT [Catalytic activity/Vol] U/L Low 7-38 [facility] Anion gap [Moles/Vol] 12 mmol/L Normal 0-15 [facility] AST [Catalytic activity/Vol] 15 U/L Normal 13-35 [facility] Bilirubin [Mass/Vol] 0.3 mg/dL Normal 0.2-1.3 [facility] Calcium [Mass/Vol] 8.8 mg/dL Normal 8.5-10.2 [facility] Chloride [Moles/Vol] 106 mmol/L High 97-105 [facility] CO2 [Moles/Vol] 24 mmol/L Normal 22-30 [facility] Creatinine [Mass/Vol] 0.70 mg/dL Normal 0.58-0.96 [facility] eGFR- Amer. >60 Normal [facility] eGFR-All Other Races >60 Normal [facility] Comment on above: Result Comment: eGFR [...] GFR. Glucose [Mass/Vol] 99 mg/dL Normal 74-99 [facility] Potassium [Moles/Vol] 3.6 mmol/L Low 3.7-5.1 [facility] Protein [Mass/Vol] 5.7 g/dL Low 6.3-8.0 [facility] Sodium [Moles/Vol] 142 mmol/L Normal 136-144 [facility] Urea nitrogen [Mass/Vol] 5 mg/dL Low 7-21 [facility] NURSING PROGon 05-27-2020 NURSING PROG HNO ID: [id number] Author: Tacho VasquezRn) BRANDIE Marr Service: ? Author Type: Registered Nurse Type: Nursing Progress Note Filed: 05/28/2020 3:20 AM Note Text: Nursing Progress Note Patient Name: Maricarmen Anderson Patient Location: / Daily Note: 1921 Assumed care of patient, received report. STAT EKG ordered through respiratory for pt stating palpitations. Will start tube feed and hold at midnight for EGD, 05/28. 2114 Assessment complete, see NPR. EKG completed and strip placed in patients chart. 2116 Ordered medications given, see eMAR. 2148 Paged general surgery: 8012, Ungerer- Patient has loraine ShopEx peptide 1.5 ordered, this is not supplied at [facility]. Loraine farms 1.0 is at bedside, is this okay to use in place? Please advise. Thanks, Kp @ [phone] Tube feed held per orders for EGD, 05/28. This note was completed by: Tacho Marr RN Normal [facility] NURSING PROG HNO ID: [id number] Author: Bibi VasquezRn) BRANDIE Freeman Service: Nursing Author Type: Registered Nurse Type: Nursing Progress Note Filed: 05/27/2020 7:25 PM Note Text: Nursing Progress Note Patient Name: Maricarmen Anderson Patient Location: / AR-721-2 Daily Note:0724am updates from tile classifier nurse. Iv fluids at 50ml/hr per pt's [...] surgery changed pt's tube feed to Loraine ShopEx peptide 1.5. will arrive from dietary. 1925pm updates to tile classifier nurse. This note was completed by: Bibi Freeman, RN Normal [facility] CBC and Differentialon 05-26 Abs Baso <0.03 Normal <0.11 [facility] Abs [place] 0.32 k/uL Normal <0.87 [facility] Abs Neut 1.63 k/uL Normal 1.45-7.50 [facility] Absolute nRBC <0.01 Normal <0.01 [facility] Basophils/100 WBC (Bld) 0.5 % Normal [facility] DTYPE Auto Diff Normal [facility] Eosinophils (Bld) [#/Vol] 0.07 10*3/uL Normal <0.46 [facility] Eosinophils/100 WBC (Bld) 1.8 % Normal [facility] Erythrocyte distribution width (RBC) [Ratio] 13.6 % Normal 11.5-15.0 [facility] Hematocrit (Bld) [Volume fraction] 27.2 % Low 36.0-46.0 [facility] Hemoglobin (Bld) [Mass/Vol] 8.5 g/dL Low 11.5-15.5 [facility] Lymphocytes (Bld) [#/Vol] 1.85 10*3/uL Normal 1.00-4.00 [facility] Lymphocytes/100 WBC (Bld) 47.4 % Normal [facility] MCH 27.7 pG Normal 26.0-34.0 [facility] MCHC (RBC) [Mass/Vol] 31.3 g/dL Normal 30.5-36.0 [facility] MCV (RBC) [Entitic vol] 88.6 fL Normal 80.0-100.0 [facility] Monocytes/100 WBC (Bld) 8.2 % Normal [facility] Neutrophils/100 WBC (Bld) 42.1 % Normal [facility] NRBCs 0.0 /100 WBC Normal 0 [facility] Platelet mean volume (Bld) [Entitic vol] 10.4 fL Normal 9.0-12.7 [facility] Platelets (Bld) [#/Vol] 150 10*3/uL Normal 150-400 [facility] RBC (Bld) [#/Vol] 3.07 10*6/uL Low 3.90-5.20 [facility] WBC (Bld) [#/Vol] 3.90 10*3/uL Normal 3.70-11.00 [facility] CONSULT PROGon 05-26-2020 CONSULT PROG HNO ID: [id number] Author: Raleigh Srivastava DO Service: General Surgery Author Type: Resident Type: Consult Progress Note Filed: 05/26/2020 5:55 AM Note Text: ----- Attestation signed by Clemente nEg at 05/26/2020 2:57 PM Attending Note I [...] DO Pager: DATE: 05/26/2020 TIME: 5:50 AM [facility] CT ABD/PEL W IVCONon 020 CT ABD/PEL W IVCON * * *Final Report* * * DATE OF EXAM: May 26 2020 12:43PM [facility] 0530 - CT ABD/PEL W IVCON / [...] atelectasis. Partially visualized electrodes in the heart. Fire Watchman (topogram) images: No additional findings. IMPRESSION: No [...] be communicated with the ordering provider via HRsoft staff message by [employer] within 2 business days of report finalization. Algorithms for management of incidental imaging findings can be found on the [facility] Intranet Sharepoint site at: [email or web address] [email or web address] Transcribed Using Voice Recognition Transcribe Date/Time: May 26 2020 12:59P Dictated by: ANIKET SIERRA MD This examination was interpreted and the report reviewed and electronically signed by: ANIKET SIERRA MD on May 26 2020 1:24PM EST [id number] ACTIONABLE Invalid Interpretation Code [facility] Comp Metabolic Panelon 05-26 Albumin [Mass/Vol] 3.6 g/dL Normal 3.5-5.0 [facility] ALP [Catalytic activity/Vol] 79 U/L Normal 34-123 [facility] ALT [Catalytic activity/Vol] 6 U/L Low 7-38 [facility] Anion gap [Moles/Vol] 8 mmol/L Normal 0-15 [facility] AST [Catalytic activity/Vol] 13 U/L Normal 13-35 [facility] Bilirubin [Mass/Vol] 0.4 mg/dL Normal 0.2-1.3 [facility] Calcium [Mass/Vol] 9.0 mg/dL Normal 8.5-10.2 [facility] Chloride [Moles/Vol] 106 mmol/L High 97-105 [facility] CO2 [Moles/Vol] 28 mmol/L Normal 22-30 [facility] Creatinine [Mass/Vol] 0.68 mg/dL Normal 0.58-0.96 [facility] eGFR- Amer. >60 Normal [facility] eGFR-All Other Races >60 Normal [facility] Comment on above: Result Comment: eGFR [...] GFR. Glucose [Mass/Vol] 98 mg/dL Normal 74-99 [facility] Potassium [Moles/Vol] 3.5 mmol/L Low 3.7-5.1 [facility] Protein [Mass/Vol] 6.1 g/dL Low 6.3-8.0 [facility] Sodium [Moles/Vol] 142 mmol/L Normal 136-144 [facility] Urea nitrogen [Mass/Vol] 8 mg/dL Normal 7-21 [facility] Coronavirus 2019on 0 SARS-CoV-2 (COVID-19) RNA CRISTINA+probe Ql (Unsp spec) Nasopharyngeal Swab Normal [facility] Comment on above: Performed By: #### C OVID ####[id number] [place], [place] [phone] SARS-CoV-2 (COVID-19) RNA CRISTINA+probe Ql (Unsp spec) Negative Normal Negative for COVID19 (SARS CoV2) by PCR. [facility] Comment on above: Result Comment: This test was developed and its performance characteristics determined by [facility]'s Doug Whitaker [facility] [place]. This test has been authorized by FDA under an Emergency Use Authorization (EUA). This test has been validated in accordance with the FDA's Guidance Document Policy for Diagnostics Testing in Laboratories Certified to Perform High Complexity Testing under CLIA prior to Emergency use Authorization for Coronavirus Disease 2019 during the Public Health Emergency issued on August 20, 2019. Performed By: #### C OVID ####[id number] [place], [place] [phone] Folate, Serumon 05-26-2020 Folate [Mass/Vol] 5.7 ng/mL Normal >4.7 [facility] Comment on above: Performed By: #### P THI, VITD, B1WB ####[address] [phone] Hemoglobin A1con 05-26-2020 Glucose [Mass/Vol] 114 mg/dL Normal [facility] Comment on above: Result Comment: eAG: (Estimated average glucose) is a calculated value from HgbA1c and is policy services representative of the average blood glucose level in the last 2-3 month period. Performed By: #### P REALB, TRANSF #### [place] [address] HbA1c (Bld) [Mass fraction] 5.6 % Normal 4.3-5.6 [facility] Comment on above: Result Comment: Amer [place] Diabetes Association guidelines indicate that patients with HgbA1c in the range 5.7-6.4% are at increased risk for development of diabetes, and intervention by lifestyle modification may be beneficial. HgbA1c greater or equal to 6.5% is considered diagnostic of diabetes. Performed By: #### P REALB, TRANSF #### [place] [address] Iron and TIBCon 05-26-2020 Iron [Mass/Vol] 20 ug/dL Low 41-186 [facility] Comment on above: Performed By: #### P THI, VITD, B1WB ####[address] [phone] TIBC 341 ug/dL Normal 210-415 [facility] Comment on above: Performed By: #### P THI, VITD, B1WB ####[address] [phone] Transferrin Saturatn 6 % Low 11-46 [facility] Comment on above: Performed By: #### P THI, VITD, B1WB ####[address], [place] [phone] Lipaseon 05-26-2020 Lipase [Catalytic activity/Vol] 112 U/L High 16-61 [facility] Lipid Panel, Bas[place] 020 Cholesterol [Mass/Vol] 188 mg/dL Normal <200 [facility] Comment on above: Result Comment: <200 mg/dL, Desirable 200-239 mg/dL, Borderline high >239 mg/dL, High Performed By: #### P THI, VITD, B1WB ####[address] [phone] Cholesterol in HDL [Mass/Vol] 57 mg/dL Normal >39 [facility] Comment on above: Result Comment: 40-5 9 mg/dL, Acceptable >59 mg/dL, High: Negative risk factor for coronary heart disease <40 mg/dL, Low: Positive risk factor for coronary heart disease Performed By: #### P THI, VITD, B1WB ####[address] [phone] Cholesterol in LDL [Mass/Vol] 113 mg/dL High <100 [facility] Comment on above: Result Comment: <100 mg/dL, Optimal 100-129 mg/dL, Near optimal/above optimal 130-159 mg/dL, Borderline high 160-189 mg/dL, High >189 mg/dL, Very high Secondary prevention optimal LDL Cholesterol levels are recommended to be < 70 mg/dL Performed By: #### P THI, VITD, B1WB ####[address] [phone] Fasting Time Blood Normal [facility] Comment on above: Performed By: #### P THI, VITD, B1WB ####[place] [id number] [place], [place] [phone] LDL:HDL Ratio 1.98 Normal <2.54 [facility] Comment on above: Result Comment: Refe rence: 1. National Cholesterol Education Program ATP III Guideline At-A-Glance Quick Desk Reference: National Heart, Lung, and Blood [place]. National Institutes of Health. 2001: NIH Publication No. 01-3305. 2. An International Atherosclerosis Society position paper: global recommendations for the management of dyslipidemia: executive summary, Atherosclerosis. 2014: 232(2):410-413. Performed By: #### P THI, VITD, B1WB ####[address] [place] [phone] Non HDL Cholesterol 131 mg/dL High <130 [facility] Comment on above: Performed By: #### P THI, VITD, B1WB ####[place] [phone] TC:HDL Ratio 3.30 Normal <5.10 [facility] Comment on above: Performed By: #### P THI, VITD, B1WB ####[place] [phone] Triglyceride [Mass/Vol] 88 mg/dL Normal <150 [facility] Comment on above: Result Comment: <150 mg/dL, Normal 150-199 mg/dL, Borderline high 200-499 mg/dL, High >499 mg/dL, Very high Performed By: #### P THI, VITD, B1WB ####[address] [place] [phone] VLDL Cholesterol 18 mg/dL Normal <30 [facility] Comment on above: Performed By: #### P THI, VITD, B1WB ####[place] [phone] Magnesiumon 05-26-2020 Magnesium [Mass/Vol] 2.0 mg/dL Normal 1.7-2.6 [facility] NURSING PROGon 05-26-2020 NURSING PROG HNO ID: [id number] Author: Tacho (Rn) BRANDIE Marr Service: ? Author Type: Registered Nurse Type: Nursing Progress Note Filed: 05/27/2020 4:29 AM Note Text: Nursing Progress Note Patient Name: Maricarmen Anderson Patient Location: [place]/ [place] Daily Note: 1935 Assumed care of patient, received report. Assessment complete, see NPR. 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 Thanks, Kp @ [phone] IV fluids reduced to 75 ml/hr will monitor how patient tolerates and notify LIP in AM. 0000 IVF reduced to 50 ml/hr per patient request. 0245 Tube feeding restarted at 10 ml/hr start rate, pt previously was not tolerating feeding. 0400 Pt observed asleep in bed, NAD, IVF and tube feed running. This note was completed by: Tacho Marr RN [facility] NURSING PROG HNO ID: [id number] Author: Bibi (Rn) BRANDIE Freeman Service: Nursing Author Type: Registered Nurse Type: Nursing Progress Note Filed: 05/26/2020 7:34 PM Note Text: Nursing Progress Note Patient Name: Maricarmen Anderson Patient Location: [place]/ [place] Daily Note:0800am report from tile classifier nurse. Pt awake resting in bed. 0955am dietican rounding at bedside. Tf on hold for ct of abd/pelvis. 1140am dr. eng has rounded per pt. 1150am covid sent as ordered 1325pm pt delcines on starting tube feeding until ct results available. 1603pm pt awake resting in bed. All blood work collected and sent to lab as ordered. 1934pm report to tile classifier nurse. This note was completed by: Bibi Freeman RN [facility] NURSING PROG HNO ID: [id number] Author: Rosibel VasquezRn) BRANDIE Bonilla Service: Nursing Author Type: Registered Nurse Type: Nursing Progress Note Filed: 05/26/2020 4:08 AM Note Text: Nursing Progress Note Patient Name: Maricarmen Anderson Patient Location: [facility] Daily Note: 2226 Nutren 1.5 hung at 20 ml/hr. 0000 Pt states she cannot tolerate tube feed. She is nauseous. Notified surgical instrument maker. OK to hold TF for now. This note was completed by: Rosibel Bonilla RN [facility] NUTRITIONon 05-26-2020 NUTRITION HNO ID: [id number] Author: Molly Vázquez Service: Nutrition Therapy Author [...] Estimated kilocalorie needs: 2040 Calorie Calculation Method: [place]. [place] (with activity factor)(1.2 AF) Estimated protein [...] nausea and vomiting. She is from the [facility]. She did call her surgeon's service and advised her to come to [facility] to be evaluated. Patient does have [...] in January and was seen in the [facility]. She is now on prophylactic [...] Assess/15 min 4 units SIGNATURE: Molly Vázquez, ,RD,LD,[facility] PATIENT NAME: Maricarmen Anderson DATE: May 26, 2020 TIME: 11:53 AM PAGER: [phone] Normal [facility] PTH, [place] 05-26-2020 PTH, Intact 127 pg/mL High 15-65 [facility] Comment on above: Performed By: #### P THI, VITD, B1WB ####[facility] [place], [place] [phone] TSHon 05-26-2020 TSH Qn 1.040 m[IU]/L Normal 0.270-4.200 [facility] Comment on above: Result Comment: If t he patient is , TSH reference range varies by gestational period: First Trimester (weeks 9-12): 0.180-2.990 mcIU/mL Second Trimester: 0.110-3.980 mcIU/mL Third Trimester: 0.480-4.710 mcIU/mL Jordan Brewer et al. A Practical Approach for the Verifications and Determination of Site- and Trimester-Specific Reference Intervals for Thyroid Function tests in . Thyroid, 2019:29:3:412-420. Raffaele Leone et al. 2017 Guidelines of the [place] Thyroid Association for the Diagnosis and Management of Thyroid Disease during and the . Thyroid, 2017:27:3:315-389. Performed By: #### P THI, VITD, B1WB ####[place] [id number] [place], [place] [phone] Vitamin B1, Whole Blon 05-26 Vitamin B1 (TDP), WB 56.6 nmol/L Low 84.0-213.0 [facility] Comment on above: Result Comment: This assay measures the concentration of thiamine diphosphate (TDP), the primary active form of vitamin B1. Approximately 90 percent of vitamin B1 present in whole blood is TDP. Thiamine and thiamine monophosphate, which comprise the remaining 10 percent, are not measured. This test was developed and its performance characteristics determined by [facility] Pathology and Laboratory Medicine [place] (RT PLOK). It has not been cleared or approved by the FDA. [facility] is regulated under CLIA as qualified to perform high complexity testing. This test is used for clinical purposes. It should not be regarded as investigational or for research. Performed By: #### P THI, VITD, B1WB ####[address] [phone] Vitamin B12on 05-26-2020 Cobalamin (Vitamin B12) [Mass/Vol] 247 pg/mL Normal 232-1245 [facility] Comment on above: Performed By: #### P THI, VITD, B1WB ####[address] [phone] Vitamin D 25 Hydroxyon 05-26 Vitamin D 25 Hydroxy 9.6 ng/mL Low 31.0-80.0 [facility] Comment on above: Result Comment: Clas sification of 25 [place] Vitamin D status: Insufficiency/Moderate Deficiency: < or = 30 ng/mL Sufficiency/Optimal Levels: 31 to 80 ng/mL Toxicity: > 100 ng/mL Test performed by chemiluminescent immunoassay. Performed By: #### P THI, VITD, B1WB ####[place] [address] [place], [place] [phone] CBC and Differentialon 05-25 Abs Baso 0.03 k/uL Normal <0.11 [facility] Abs [place] 0.28 k/uL Normal <0.87 [facility] Abs Neut 2.58 k/uL Normal 1.45-7.50 [facility] Absolute nRBC <0.01 Normal <0.01 [facility] Basophils/100 WBC (Bld) 0.7 % Normal [facility] DTYPE Auto Diff Normal [facility] Eosinophils (Bld) [#/Vol] 0.04 10*3/uL Normal <0.46 [facility] Eosinophils/100 WBC (Bld) 1.0 % Normal [facility] Erythrocyte distribution width (RBC) [Ratio] 13.4 % Normal 11.5-15.0 [facility] Hematocrit (Bld) [Volume fraction] 26.8 % Low 36.0-46.0 [facility] Hemoglobin (Bld) [Mass/Vol] 8.6 g/dL Low 11.5-15.5 [facility] Lymphocytes (Bld) [#/Vol] 1.08 10*3/uL Normal 1.00-4.00 [facility] Lymphocytes/100 WBC (Bld) 26.9 % Normal [facility] MCH 27.7 pG Normal 26.0-34.0 [facility] MCHC (RBC) [Mass/Vol] 32.1 g/dL Normal 30.5-36.0 [facility] MCV (RBC) [Entitic vol] 86.2 fL Normal 80.0-100.0 [facility] Monocytes/100 WBC (Bld) 7.0 % Normal [facility] Neutrophils/100 WBC (Bld) 64.4 % Normal [facility] NRBCs 0.0 /100 WBC Normal 0 [facility] Platelet mean volume (Bld) [Entitic vol] 10.4 fL Normal 9.0-12.7 [facility] Platelets (Bld) [#/Vol] 170 10*3/uL Normal 150-400 [facility] RBC (Bld) [#/Vol] 3.11 10*6/uL Low 3.90-5.20 [facility] WBC (Bld) [#/Vol] 4.02 10*3/uL Normal 3.70-11.00 [facility] CC Profile Ulises SP,MM,EUC For SPT,MMH,EUC use onlyon 05-25-2020 [place] Test Venous Normal [facility] Attempts 1 Normal [facility] Base Excess 3 mmol/L Normal [facility] Comment on above: Result Comment: -2 T O 2 Body temperature 98.6 [degF] Normal [facility] Calcium [Moles/Vol] 1.20 mmol/L Normal 1.09-1.30 [facility] Chloride [Moles/Vol] 108 mmol/L Normal 50-400 [facility] Device None seen Normal [facility] Drawsite Venous Normal [facility] HCO3 (Bld) [Moles/Vol] 28 mmol/L High 22-26 [facility] Hemoglobin (Bld) [Mass/Vol] 8.6 g/dL Low 12-18 [facility] Lactate [Moles/Vol] 1.3 mmol/L Normal 0.7-2.5 [facility] pCO2 46 mm Hg Normal 41-51 [facility] pH (Bld) 7.40 [pH] Normal 7.32-7.42 [facility] pO2 BELOW REPORTABLE RANGE Normal 35-42 [facility] Potassium [Moles/Vol] 3.3 mmol/L Low 3.5-5.1 [facility] Sodium [Moles/Vol] 143 mmol/L Normal 136-146 [facility] CONSULTon 05-25-2020 CONSULT HNO ID: [id number] Author: Raleigh Srivastava DO Service: General Surgery [...] had a recent traumatic brain injury in [facility] and is on seizure medications [...] or palpitations GI: See HPI : Negative 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 Normal [facility] Comp Metabolic Panelon 05-25 Albumin [Mass/Vol] 3.8 g/dL Normal 3.5-5.0 [facility] ALP [Catalytic activity/Vol] 82 U/L Normal 34-123 [facility] ALT [Catalytic activity/Vol] 6 U/L Low 7-38 [facility] Anion gap [Moles/Vol] 10 mmol/L Normal 0-15 [facility] AST [Catalytic activity/Vol] 14 U/L Normal 13-35 [facility] Bilirubin [Mass/Vol] 0.3 mg/dL Normal 0.2-1.3 [facility] Calcium [Mass/Vol] 8.9 mg/dL Normal 8.5-10.2 [facility] Chloride [Moles/Vol] 107 mmol/L High 97-105 [facility] CO2 [Moles/Vol] 26 mmol/L Normal 22-30 [facility] Creatinine [Mass/Vol] 0.62 mg/dL Normal 0.58-0.96 [facility] eGFR- Amer. >60 Normal [facility] eGFR-All Other Races >60 Normal [facility] Comment on above: Result Comment: eGFR (Estimated GFR) Units of measure: mL/min/1.73 meters squared eGFR is derived from the reexpressed MDRD Study equation using the following parameters: serum creatinine, age, gender and race. The creatinine assay has been calibrated to be traceable to [employer]. An eGFR <60 mL/min/1.73m2 for >3 months is consistent with chronic kidney disease. Refer to KDOQI guidelines for clinical interpretation. In patients with unstable renal function, e.g. those with acute kidney injury, the eGFR may not accurately reflect actual GFR. Glucose [Mass/Vol] 88 mg/dL Normal 74-99 [facility] Potassium [Moles/Vol] 3.3 mmol/L Low 3.7-5.1 [facility] Protein [Mass/Vol] 6.4 g/dL Normal 6.3-8.0 [facility] Sodium [Moles/Vol] 143 mmol/L Normal 136-144 [facility] Urea nitrogen [Mass/Vol] 10 mg/dL Normal 7-21 [facility] ED NOTEon 05-25-2020 ED NOTE HNO ID: [id number] Author: Chavo Maravilla RN Service: ? Author Type: Registered Nurse Type: ED Notes Filed: 05/25/2020 6:05 PM Note Text: Pt to the floor with caregiver, in stable condition, in NAD. Pt's infusion running without difficulty and pt belongings at bedside. [facility] ED NOTE HNO ID: [id number] Author: Chavo Maravilla RN Service: ? Author Type: Registered Nurse Type: ED Notes Filed: 05/25/2020 6:01 PM Note Text: Report given to Ceasar DIEGO, all questions addressed at this time. [facility] ED NOTE HNO ID: [id number] Author: Chavo Maravilla RN Service: ? Author Type: Registered Nurse Type: ED Notes Filed: 05/25/2020 3:27 PM Note Text: RT notified of CCVBG [facility] ED NOTE HNO ID: [id number] Author: Chavo Maravilla RN Service: ? Author [...] chest. Allergies reviewed and allergy band applied. [facility] ED NOTE HNO ID: [id number] Author: Marycarmen (Rn) BRANDIE Hunt Service: ? Author Type: Registered Nurse Type: ED Notes Filed: 05/25/2020 1:50 PM Note Text: Pt given cup to collect urine specimen [facility] ED NOTE HNO ID: [id number] Author: Flaquita (Medic) Charis Service: General Internal Medicine Author Type: Cloth Inspector and Shipmaster Type: ED Notes Filed: 05/25/2020 1:43 PM Note Text: Pt states she sometimes has a rapid heart rate when she stands to walk. States she had a pacemaker placed in March 2020 at . EKG performed and given to Dr. Moreno [facility] ED NOTE HNO ID: [id number] Author: Marycarmen (Rn) BRANDIE Hunt Service: ? Author Type: Registered Nurse Type: ED Notes Filed: 05/25/2020 12:43 PM Note Text: Pt c/o nausea, vomiting, ABD pain for the past 2 weeks. She has a J tube, and when ever she pours liquid into it, she vomits. [facility] ED PROV NOTEon 05-25-2020 ED PROV NOTE HNO ID: [id number] Author: Dennis Spence DO Service: Emergency Medicine [...] nausea and vomiting. She is from the [facility]. She did call her surgeon's service and advised her to come to [facility] to be evaluated. Patient does have [...] in January and was seen in the [place] area. She is now on prophylactic seizure [...] Obesity, Class III, BMI 40-49.9 (morbid obesity) ([facility]) - Port-A-Cath in place patients right [...] CARE PROFILE-VE (more content not included)... Normal [facility] HOSPon 05-25-2020 HOSP Patient:Lea Anderson MRN: [...] performed and given to Dr. Tiffanie Hunt, BRANDIE, RN 05/25/2020 1:50 PM Signed Pt given [...] nausea and vomiting. She is from the [facility]. She did call her surgeon's service and advised her to come to [facility] to be evaluated. Patient does have [...] in January and was seen in the [facility]. She is now on prophylactic [...] thrombosis of (more content not included)... Normal [facility] Lipaseon 05-25-2020 Lipase [Catalytic activity/Vol] 54 U/L Normal 16-61 [facility] Magnesiumon 05-25-2020 Magnesium [Mass/Vol] 1.9 mg/dL Normal 1.7-2.6 [facility] NURSING PROGon 05-25-2020 NURSING PROG HNO ID: [id number] Author: Mitchel VasquezRn) BRANDIE Larry Service: Nursing Author Type: Registered Nurse Type: Nursing Progress Note Filed: 05/25/2020 6:27 PM Note Text: Nursing Progress Note Patient Name: Maricarmen Anderson Patient Location: [place] [address]/[place] [id number] patient admitted to room [facility]. Pain reported in upper abdomen 03/31 at this time. Nausea also reported. Calling primary MD for admission orders. Patient has j-tube and uses osmolite when able. No other distress noted at this time. Patient denies SOB or CP. This note was completed by: Mitchel Larry RN [facility] NURSING PROG HNO ID: [id number] Author: Michelle VasquezRn) Leatha RN Service: Nursing Author Type: Registered Nurse Type: Nursing Progress Note Filed: 05/25/2020 7:14 PM Note Text: Nursing Progress Note Patient Name: Maricarmen Anderson Patient Location: [facility]/ [place]-2 Transfer Note: Patient transferred into room/unit 721, bed 2 from ED in stable condition. Actions taken: No further actions taken at this time. Will continue to monitor and check with patient. 1912 Nursing admission database completed; PRECISION STRUCTURAL METAL FITTER medication list updated. This note was completed by: Michelle Zhang RN Normal [facility] Urinalysis with Microscopico n 05-25-2020 Bacteria 1+ /HPF Critically abnormal Negative [facility] Bilirubin, Urine Negative Normal Negative [facility] Cast SEE COMMENT Normal 0 [facility] Comment on above: Result Comment: 0 Clarity (U) Slightly Cloudy Critically abnormal Clear [facility] Color (U) Yellow Normal Yellow [facility] Crystals LM Nom (Urine sed) SEE COMMENT Critically abnormal Negative [facility] Comment on above: Result Comment: 3+ Calcium Oxalate Glucose Ql (U) Negative Normal Negative [facility] Hemoglobin/Blood,Ur Negative Normal Negative [facility] Ketones Ql (U) Trace Critically abnormal Negative [facility] Leukest Trace Critically abnormal Negative [facility] Nitrite Ql (U) Negative Normal Negative [facility] pH (U) 6.0 [pH] Normal 5.0-8.0 [facility] Protein, Urine Negative Normal Negative [facility] RBC 0-3 Normal 0-3 [facility] Specific [place], Ur 1.025 Normal 1.005-1.030 [facility] Urobilinogen Qn (U) 1.0 {José'U}/dL Normal 0.2-1.0 [facility] WBC 0-5 Normal 0-5 [facility] SLEEP CENTER REPORTon 2019 [place] [address] SLEEP STUDY REPORT PATIENT NAME: MARICARMEN ANDERSON : 1980 MED REC NO: [id number] ROOM: ACCOUNT NO: [id number] ADMIT DATE: 01/24/2020 PROVIDER: Roseline Decker SLEEP [...] Please correlate clinically. ROSELINE DECKER ND/V_TTNER_T Doc#: [id number] CC: Roseline Decker [facility] Basic Metabolic Panlon 01-01 Anion gap [Moles/Vol] 5 mmol/L Normal 0-15 [facility] Calcium [Mass/Vol] 9.2 mg/dL Normal 8.5-10.2 [facility] Chloride [Moles/Vol] 106 mmol/L High 97-105 [facility] CO2 [Moles/Vol] 26 mmol/L Normal 22-30 [facility] Creatinine [Mass/Vol] 0.81 mg/dL Normal 0.58-0.96 [facility] Glucose [Mass/Vol] 106 mg/dL High 74-99 [facility] Potassium [Moles/Vol] 3.8 mmol/L Normal 3.7-5.1 [facility] Sodium [Moles/Vol] 137 mmol/L Normal 136-144 [facility] Urea nitrogen [Mass/Vol] 9 mg/dL Normal 7-21 [facility] CASE MANAGEMon 01-02-2020 CASE MANAGEM HNO ID: [id number] Author: Anaid (Rn) BRANDIE Valencia Service: ? Author Type: Registered Nurse Type: Care Mgt Progress Note Filed: 01/02/2020 1:17 PM Note Text: CARE MANAGEMENT DISCHARGE NOTE SERVICE DATE: 01/02/2020 SERVICE TIME: 5 LOS: 0 days Admission Date: 12/30/2019 DISCHARGE [...] Physician Name/Phone: Dr. Sotelo Other Caregiver Name/Phone: [employer] TRANSPORTATION ARRANGEMENTS: Transportation Arrangements: Car ADDITIONAL CONTACT RESOURCES: None Patient surgically cleared for discharge and being discharged to home today on enteral tube feedings. [employer] updated and orders to resume tube feedings sent. SIGNATURE: Anaid Valencia RN PATIENT NAME: Maricarmen [place] DATE: January 02, 2020 TIME: 1:14 PM PAGER/CONTACT #: [phone] [facility] CNDSon 01-02-2020 CNDS HNO ID: [id number] Author: Clemente Eng Service: General Surgery Author [...] Out FOLLOW-UP APPOINTMENTS ALREADY SCHEDULED WITH A [place] PROVIDER: No future appointments. ALLERGIES Allergen Reactions [...] DATE: January 02, 2020 TIME: 12:33 PM [facility] NURSING PROGon 01-02-2020 NURSING PROG HNO ID: [id number] Author: Kimmie VasquezRn) BRANDIE Galo Service: Nursing Author Type: Registered Nurse Type: Nursing Progress Note Filed: 01/02/2020 12:27 PM Note Text: Nursing Progress Note Patient Name: Maricarmen Adnerson Patient Location: [facility]/ [place] Daily Note: 729: received report from Silvia RN. Assumed care of patient from previous shift nurse. 829: assessment complete. See npr. Bed low and [...] was completed by: Kimmie Galo RN Normal [facility] Basic Metabolic Panlon 12-31 Anion gap [Moles/Vol] 6 mmol/L Normal 0-15 [facility] Calcium [Mass/Vol] 9.0 mg/dL Normal 8.5-10.2 [facility] Chloride [Moles/Vol] 105 mmol/L Normal 97-105 [facility] CO2 [Moles/Vol] 26 mmol/L Normal 22-30 [facility] Creatinine [Mass/Vol] 0.73 mg/dL Normal 0.58-0.96 [facility] Glucose [Mass/Vol] 92 mg/dL Normal 74-99 [facility] Potassium [Moles/Vol] 3.7 mmol/L Normal 3.7-5.1 [facility] Sodium [Moles/Vol] 137 mmol/L Normal 136-144 [facility] Urea nitrogen [Mass/Vol] 8 mg/dL Normal 7-21 [facility] NURSING PROGon 01-01-2020 NURSING PROG HNO ID: [id number] Author: Silvia (Rn) BRANDIE Marquez Service: ? Author Type: Registered Nurse Type: Nursing Progress Note Filed: 01/02/2020 3:03 AM Note Text: Nursing Progress Note Patient Name: Maricarmen Anderson Patient Location: [facility]/ [place] Daily Note: 190: Received report from BRANDIE Gaxiola. Patient awake [...] note was completed by: Silvia Marquez RN [facility] NURSING PROG HNO ID: [id number] Author: Khalida Mendes RN Service: Nursing Author Type: Registered Nurse Type: Nursing Progress Note Filed: 01/01/2020 7:23 PM Note Text: Nursing Progress Note Patient Name: Maricarmen Anderson Patient Location: [place]/ [place] Daily Note: 0736 Resumed care for the patient, received updates from Tiny DIEGO. 0745 Tube feed increased to 40 cc/hr. 0915 Assessment unchanged as charted. Safety maintained. 1400 Tube feed increased to 50 cc/hr, patient tolerating them well. 1919 Report given to Silvia DIEGO. This note was completed by: Khalida Mendes RN [facility] ALLIED HEALTHon 12-31-2019 ALLIED HEALTH HNO ID: [id number] Author: Uzair Hurst (Tech) Service: Radiology Author Type: Shipmaster Type: Allied Health Filed: 12/31/2019 12:47 AM [...] [place] December 31, 2019 12:46 AM Normal [facility] Basic Metabolic Panlon 12-30 Anion gap [Moles/Vol] 8 mmol/L Normal 0-15 [facility] Calcium [Mass/Vol] 8.9 mg/dL Normal 8.5-10.2 [facility] Chloride [Moles/Vol] 105 mmol/L Normal 97-105 [facility] CO2 [Moles/Vol] 25 mmol/L Normal 22-30 [facility] Creatinine [Mass/Vol] 0.62 mg/dL Normal 0.58-0.96 [facility] eGFR- Amer. >60 Normal [facility] eGFR-All Other Races >60 Normal [facility] Comment on above: Result Comment: eGFR [...] GFR. Glucose [Mass/Vol] 81 mg/dL Normal 74-99 [facility] Potassium [Moles/Vol] 3.6 mmol/L Low 3.7-5.1 [facility] Sodium [Moles/Vol] 138 mmol/L Normal 136-144 [facility] Urea nitrogen [Mass/Vol] 9 mg/dL Normal 7-21 [facility] CBCon 12-31-2019 Absolute nRBC <0.01 Normal <0.01 [facility] Erythrocyte distribution width (RBC) [Ratio] 13.2 % Normal 11.5-15.0 [facility] Hematocrit (Bld) [Volume fraction] 28.7 % Low 36.0-46.0 [facility] Hemoglobin (Bld) [Mass/Vol] 9.3 g/dL Low 11.5-15.5 [facility] MCH 29.9 pG Normal 26.0-34.0 [facility] MCHC (RBC) [Mass/Vol] 32.4 g/dL Normal 30.5-36.0 [facility] MCV (RBC) [Entitic vol] 92.3 fL Normal 80.0-100.0 [facility] Platelet mean volume (Bld) [Entitic vol] 10.7 fL Normal 9.0-12.7 [facility] Platelets (Bld) [#/Vol] 151 10*3/uL Normal 150-400 [facility] RBC (Bld) [#/Vol] 3.11 10*6/uL Low 3.90-5.20 [facility] WBC (Bld) [#/Vol] 5.08 10*3/uL Normal 3.70-11.00 [facility] CBC and Differentialon 12-30 Abs Baso 0.03 k/uL Normal <0.11 [facility] Abs [place] 0.49 k/uL Normal <0.87 [facility] Abs Neut 3.99 k/uL Normal 1.45-7.50 [facility] Absolute nRBC <0.01 Normal <0.01 [facility] Basophils/100 WBC (Bld) 0.5 % Normal [facility] DTYPE Auto Diff Normal [facility] Eosinophils (Bld) [#/Vol] 0.04 10*3/uL Normal <0.46 [facility] Eosinophils/100 WBC (Bld) 0.6 % Normal [facility] Erythrocyte distribution width (RBC) [Ratio] 13.1 % Normal 11.5-15.0 [facility] Hematocrit (Bld) [Volume fraction] 30.3 % Low 36.0-46.0 [facility] Hemoglobin (Bld) [Mass/Vol] 9.8 g/dL Low 11.5-15.5 [facility] Lymphocytes (Bld) [#/Vol] 1.70 10*3/uL Normal 1.00-4.00 [facility] Lymphocytes/100 WBC (Bld) 27.2 % Normal [facility] MCH 29.6 pG Normal 26.0-34.0 [facility] MCHC (RBC) [Mass/Vol] 32.3 g/dL Normal 30.5-36.0 [facility] MCV (RBC) [Entitic vol] 91.5 fL Normal 80.0-100.0 [facility] Monocytes/100 WBC (Bld) 7.8 % Normal [facility] Neutrophils/100 WBC (Bld) 63.9 % Normal [facility] NRBCs 0.0 /100 WBC Normal 0 [facility] Platelet mean volume (Bld) [Entitic vol] 11.0 fL Normal 9.0-12.7 [facility] Platelets (Bld) [#/Vol] 177 10*3/uL Normal 150-400 [facility] RBC (Bld) [#/Vol] 3.31 10*6/uL Low 3.90-5.20 [facility] WBC (Bld) [#/Vol] 6.26 10*3/uL Normal 3.70-11.[address] [facility] [address] ABD/PEL W IVCONon 020 CT ABD/PEL W IVCON * * *Final Report* * * DATE OF EXAM: Dec 31 2019 12:49AM [facility] 0530 - CT ABD/PEL W IVCON / [...] Dec 31 2019 1:31AM EST [id number] Normal [facility] Comp Metabolic Panelon 12-30 Albumin [Mass/Vol] 3.8 g/dL Normal 3.5-5.0 [facility] ALP [Catalytic activity/Vol] 70 U/L Normal 34-123 [facility] ALT [Catalytic activity/Vol] 9 U/L Normal 7-38 [facility] Anion gap [Moles/Vol] 7 mmol/L Normal 0-15 [facility] AST [Catalytic activity/Vol] 15 U/L Normal 13-35 [facility] Bilirubin [Mass/Vol] 0.3 mg/dL Normal 0.2-1.3 [facility] Calcium [Mass/Vol] 9.1 mg/dL Normal 8.5-10.2 [facility] Chloride [Moles/Vol] 105 mmol/L Normal 97-105 [facility] CO2 [Moles/Vol] 26 mmol/L Normal 22-30 [facility] Creatinine [Mass/Vol] 0.60 mg/dL Normal 0.58-0.96 [facility] eGFR- Amer. >60 Normal [facility] eGFR-All Other Races >60 Normal [facility] Comment on above: Result Comment: eGFR [...] GFR. Glucose [Mass/Vol] 84 mg/dL Normal 74-99 [facility] Potassium [Moles/Vol] 3.4 mmol/L Low 3.7-5.1 [facility] Protein [Mass/Vol] 6.2 g/dL Low 6.3-8.0 [facility] Sodium [Moles/Vol] 138 mmol/L Normal 136-144 [facility] Urea nitrogen [Mass/Vol] 11 mg/dL Normal 7-21 [facility] Coronavirus 2019on 0 SARS-CoV-2 (COVID-19) RNA CRISTINA+probe Ql (Unsp spec) Nasopharyngeal Swab Normal [facility] Comment on above: Performed By: #### P REALB, TRANSF #### [place] [address] SARS-CoV-2 (COVID-19) RNA CRISTINA+probe Ql (Unsp spec) Negative Normal Negative for COVID19 (SARS CoV2) by PCR. [facility] Comment on above: Result Comment: This test was developed and its performance characteristics determined by [facility] [place]. This test has been authorized by FDA [...] Performed By: #### P REALB, TRANSF #### [facility] [address] [place] [address] ED NOTEon 12-31-2019 ED NOTE HNO ID: [id number] Author: Paul VasquezRn) BRANDIE Culver Service: Emergency Medicine Author Type: Registered Nurse Type: ED Notes Filed: 12/31/2019 12:28 AM Note Text: Patient to CT and then stable for admission to 9th floor, report called to BRANDIE Villaseñor. Patient transported with medic, stable at time of transfer from ED [facility] ED NOTE HNO ID: [id number] Author: Paul VasquezRn) BRANDIE Culver Service: Emergency Medicine Author Type: Registered Nurse Type: ED Notes Filed: 12/30/2019 11:43 PM Note Text: Patient finished contrast, CT aware [facility] ED NOTE HNO ID: [id number] Author: Paul Coffey) BRANDIE Culver Service: Emergency Medicine Author Type: Registered Nurse Type: ED Notes Filed: 12/30/2019 10:55 PM Note Text: Urine obtained and sent [facility] ED NOTE HNO ID: [id number] Author: Paul Coffey) BRANDIE Culver Service: Emergency Medicine Author Type: Registered Nurse Type: ED Notes Filed: 12/30/2019 10:55 PM Note Text: Covid swab obtained, placed on ice and walked to lab by [facility] ED PROV NOTEon 12-31-2019 ED PROV NOTE HNO ID: [id number] Author: Milton Kate MD Service: Emergency Medicine [...] 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 Normal [facility] Lipaseon 12-31-2019 Lipase [Catalytic activity/Vol] 33 U/L Normal 16-61 [facility] Magnesiumon 12-31-2019 Magnesium [Mass/Vol] 1.8 mg/dL Normal 1.7-2.6 [facility] NURSING PROGon 12-31-2019 NURSING PROG HNO ID: [id number] Author: Tiny (Rn) BRANDIE Chamberlain Service: Nursing Author Type: Registered Nurse Type: Nursing Progress Note Filed: 01/01/2020 3:51 AM Note Text: Nursing Progress Note Patient Name: Maricarmen Anderson Patient Location: [place]/-1 1919 Received report from prior RN. Patient is in the bed resting with no signs of distress. All personal possessions are within reach. Needs are met at this time. Bed is low and locked. Bed alarm is on. 1920 Requested phenergan from pharmacy. 0000 Tube feed increased to 30 ml/hr 0200 pt sleeping This note was completed by: Tiny Chamberlain RN [facility] NURSING PROG O ID: [id number] Author: Khalida Mendes RN Service: Nursing Author Type: Registered Nurse Type: Nursing Progress Note Filed: 12/31/2019 7:28 PM Note Text: Nursing Progress Note Patient Name: Maricarmen Anderson Patient Location: [place]/ Daily Note: 714 Received report from Sheyla DIEGO. 0850 Assessment completed as charted. Patient complains of nausea and pain. Call light within reach and bed in lowest position will continue to monitor. 1100 Diet advanced to full liquids. 1115 Tube feed started. 1730 Tube feed increased to 20 cc/hr. 1924 Report given to Tiny DIEGO. This note was completed by: Khalida Mendes RN [facility] NURSING PROG O ID: [id number] Author: Sheyla Martinez Service: ? Author Type: Registered Nurse Type: Nursing Progress Note Filed: 12/31/2019 5:17 AM Note Text: Nursing Progress Note Patient Name: Maricarmen Anderson Patient Location: [place]/- Transfer Note: Patient transferred into room/unit 906 in stable condition. Actions taken: No futher actions taken at this time. Will continue to monitor and check with patient. Patient belongings with patient This note was completed by: Sheyla Martinez RN [facility] NURSING PROG HNO ID: [id number] Author: Sheyla Coffey)Polina Martinez Service: ? Author Type: Registered Nurse Type: Nursing Progress Note Filed: 12/31/2019 5:16 AM Note Text: Nursing Progress Note Patient Name: Maricarmen Anderson Patient Location: [facility]/ [place]-1 Daily Note: 0027 received report from ED, Paul, patient going to ME before coming to floor 0045 patient on floor 0048assessment complete, see NPR. Patient's belongings, call light are with in reach. Bed is locked and in lowest position. Patient in no distress at this time. This note was completed by: Sheyla Martinez RN [facility] NUTRITIONon 12-31-2019 NUTRITION HNO ID: [id number] Author: Molly Vázquez Service: Nutrition Therapy Author Type: Registered Dietitian Type: Nutrition Filed: 12/31/2019 11:54 AM Note Text: NUTRITION THERAPY INITIAL ASSESSMENT SERVICE DATE: 12/31/2019 SERVICE TIME: 11:52 AM Nutrition Assessment: Recommended Malnutrition Diagnosis: No Malnutrition Identified Nutrition Diagnosis: Problem: Suboptimal protein/energy intake Related to: Inability to consume sufficient nutrients As evidenced by: Patient/family self-report;Nausea;Vomiti ng Estimated kilocalorie needs: 3723-9735 Calorie Calculation Method: 15-20 kcals/kg Estimated protein needs (grams): 71-89 Grams protein determined by: 1.2-1.5 g/kg;[place] Body Weight Care Plan: Continue current diet [...] of Inflammation: Chronic condition SIGNATURE: Molly Vázquez, MS,RD,LD,CNSC PATIENT NAME: Maricarmen Anderson DATE: December 31, 2019 TIME: 11:51 AM PAGER: [phone] Normal [facility] Phosphoruson 12-31-2019 Phosphate [Mass/Vol] 3.7 mg/dL Normal 2.7-4.8 [facility] Prealbuminon 12-31-2019 Prealbumin [Mass/Vol] 20 mg/dL Normal 17-36 [facility] Comment on above: Performed By: #### P REALB, TRANSF #### [facility] [address] [place] [id number] Transferrinon 12-31-2019 Transferrin [Mass/Vol] 266 mg/dL Normal 200-360 [facility] Comment on above: Performed By: #### P REALB, TRANSF #### [facility] [address] [place], [place] [address] Urinalysis with Microscopico n 12-31-2019 Amorphous Crystal 2+ Normal [facility] Bacteria 4+ /HPF Critically abnormal Negative [facility] Bilirubin, Urine Negative Normal Negative [facility] SEE COMMENT Normal 0 [facility] Comment on above: Result Comment: 0 Clarity (U) Cloudy Critically abnormal Clear [facility] Color (U) Yellow Normal Yellow [facility] Epithelial cells LM Ql (Urine sed) SEE COMMENT Critically abnormal Occasional [facility] Comment on above: Result Comment: 4+ Squamous Epithelial Cells Glucose Ql (U) Negative Normal Negative [facility] Hemoglobin/Blood,Ur Negative Normal Negative [facility] Ketones Ql (U) Trace Critically abnormal Negative [facility] Leukest 2+ Critically abnormal Negative [facility] Nitrite Ql (U) Negative Normal Negative [facility] pH (U) 7.0 [pH] Normal 5.0-8.0 [facility] Protein, Urine Negative Normal Negative [facility] RBC 0-3 Normal 0-3 [facility] Specific [place], Ur 1.025 Normal 1.005-1.030 [facility] Urobilinogen Qn (U) 1.0 {José'U}/dL Normal 0.2-1.0 [facility] WBC 6-10 Critically abnormal 0-5 [facility] PROGRESSon 09-19-2019 PROGRESS HNO ID: [id number] Author: Emelia Baldwin Service: ? Author Type: [...] 1:00 PM PAGER: Emelia Baldwin MD [facility] 09-13-2019 [facility] Telephone (NSFRVW) ----- MARICARMEN ANDERSON ([id number]) 1980 F [facility] Date Time Provider Department 09/13/19 EMELIA BALDWIN NSFRVW During your visit today, we recorded the following information about you: [facility] 09/13/2019 3:55 PM Signed Patient has been identified by name and date of : Yes Type of form: [facility] Disability Form received via: Fax When form is completed, fax form to fax number provided. [phone] Form has been forwarded to: Nurse [facility] Ángela Luis PA-C 09/14/2019 8:46 AM [...] 09/20/2019 2:30 PM Signed Per Duane at [facility] at [phone] what is the status of the residential disability forms sent to us? 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 Allergies As of Date: 09/13/2019 Noted Allergy Reaction DILAUDID (HYDROMORPHONE (BULK)) 03/28/2019 9 - Itching Date Reviewed: 08/14/2019 Reviewed by: Saskia (Rn) BRANDIE Sharpe - Fully Assessed Reason for Visit: residential disability [Other] Prescriptions as of 09/13/2019 Sig: [...] Encounter Status:Closed by YONG PADILLA on 09/16/19 [facility] HNO ID: [id number] Author: Uzair Angulo (Tech) Service: Radiology Author Type: Shipmaster Type: Allied Health Filed: 05/13/2019 10:22 AM [...] Bill King May 13, 2019 10:22 AM [facility] MRI CERVICAL SPINE WO IVCONo n 05-13-2019 MRI CERVICAL SPINE WO IVCON * * *Final Report* * * DATE OF EXAM: May 13 2019 10:50AM [facility] 0297 - MRI CERVICAL SPINE WO IVCON [...] vertebrae with counting from the craniocervical junction. Biomedical Engineering Supervisor: PSCB Transcribe Date/Time: May 13 2019 12:52P Dictated by : JON OSBORNE MD This examination was interpreted and the report reviewed and electronically signed by: JNO OSBORNE MD on May 13 2019 1:16PM EST [id number] Normal [facility] Vital Signs Date Time Vital Sign Value Performing Clinician Facility 11-17-2024 13:40-0400 Diastolic blood pressure 76 mm[Hg] Viktor Sotelo MD Work Phone: [facility] 11-17-2024 13:40-0400 Heart rate 84 /min Viktor Sotelo MD Work Phone: [facility] 11-17-2024 13:40-0400 Respiratory rate 16 /min Viktor Sotelo MD Work Phone: [facility] 11-17-2024 13:40-0400 SaO2% (BldA) [Mass fraction] 98 % Viktor Sotelo MD Work Phone: [facility] 11-17-2024 13:40-0400 Systolic blood pressure 120 mm[Hg] Viktor Sotelo MD Work Phone: [facility] 11-17-2024 12:55-0400 Body temperature 97.3 [degF] Viktor Sotelo MD Work Phone: [facility] 11-17-2024 12:55-0400 Inhaled oxygen flow rate 8 L/min Vkitor Sotelo MD Work Phone: [facility] 11-17-2024 09:40-0400 Body height 167.64 cm Viktor Sotelo MD Work Phone: [facility] 11-17-2024 09:40-0400 Body weight 117.93 kg Viktor Sotelo MD Work Phone: [facility] 11-07-2024 15:00-0400 Body height 167.64 cm Viktor Sotelo MD Work Phone: [facility] 11-07-2024 15:00-0400 Body mass index (BMI) [Ratio] 41.9 kg/m2 Viktor Sotelo MD Work Phone: [facility] 11-07-2024 15:00-0400 Body temperature 97.5 [degF] Viktor Sotelo MD Work Phone: [facility] 11-07-2024 15:00-0400 Body weight 117.93 kg Viktor Sotelo MD Work Phone: [facility] 11-07-2024 15:00-0400 Diastolic blood pressure 72 mm[Hg] Viktor Sotelo MD Work Phone: [facility] 11-07-2024 15:00-0400 Heart rate 75 /min Viktor Sotelo MD Work Phone: [facility] 11-07-2024 15:00-0400 SaO2% (BldA) [Mass fraction] 99 % Viktor Sotelo MD Work Phone: [facility] 11-07-2024 15:00-0400 Systolic blood pressure 120 mm[Hg] Viktor Sotelo MD Work Phone: [facility] 06-10-2024 09:33-0500 Body height 167.64 cm Viktor Sotelo MD Work Phone: [facility] 06-10-2024 09:33-0500 Body mass index (BMI) [Ratio] 43.4 kg/m2 Viktor Sotelo MD Work Phone: [facility] 06-10-2024 09:33-0500 Body weight 122.01 kg Viktor Sotelo MD Work Phone: [facility] 06-10-2024 09:33-0500 Diastolic blood pressure 66 mm[Hg] Viktor Sotelo MD Work Phone: [facility] 06-10-2024 09:33-0500 Heart rate 93 /min Viktor Sotelo MD Work Phone: [facility] 06-10-2024 09:33-0500 Systolic blood pressure 93 mm[Hg] Viktor Sotelo MD Work Phone: [facility] 11-12-2023 13:23-0400 Body height 167.64 cm MD Viktor Sotelo Work Phone: [facility] 11-12-2023 13:23-0400 Body mass index (BMI) [Ratio] 41.1 kg/m2 MD Viktor Sotelo Work Phone: [facility] 11-12-2023 13:23-0400 Body weight 115.66 kg MD Viktor Sotelo Work Phone: [facility] 11-12-2023 13:23-0400 Diastolic blood pressure 73 mm[Hg] MD Viktor Sotelo Work Phone: [facility] 11-12-2023 13:23-0400 Heart rate 81 /min MD Viktor Sotelo Work Phone: [facility] 11-12-2023 13:23-0400 Systolic blood pressure 108 mm[Hg] MD Viktor Sotelo Work Phone: [facility] 01-21-2023 06:55-0400 Body height 167.64 cm MD Viktor Sotelo Work Phone: [facility] 01-21-2023 06:55-0400 Body weight 108.86 kg MD Viktor Sotelo Work Phone: [facility] 01-20-2023 08:36-0400 Body height 167.64 cm Viktor Sotelo Work Phone: [facility] [address] DO Work Phone: 01-20-2023 08:36-0400 Body mass index (BMI) [Ratio] 39.06 kg/m2 Viktor Sotelo Work Phone: [facility] [address] DO Work Phone: 01-20-2023 08:36-0400 Body surface area Derived from formula 2.17 m2 Viktor Sotelo Work Phone: [facility] [address] DO Work Phone: 01-20-2023 08:36-0400 Body weight 109.77 kg Viktor Sotelo Work Phone: [facility] [address] DO Work Phone: 01-20-2023 08:36-0400 Diastolic blood pressure 80 mm[Hg] Viktor Sotelo Work Phone: [facility] [address] DO Work Phone: 01-20-2023 08:36-0400 Respiratory rate 60 /min Viktor Sotelo Work Phone: [facility] [address] DO Work Phone: 01-20-2023 08:36-0400 Systolic blood pressure 122 mm[Hg] Viktor Sotelo Work Phone: [facility] DO Work Phone: 12-15-2022 09:00-0400 Body weight 109.04 kg MD Viktor Sotelo Work Phone: [facility] 12-15-2022 07:30-0400 Body temperature 97.9 [degF] MD Viktor Sotelo Work Phone: [facility] 12-15-2022 07:30-0400 Diastolic blood pressure 72 mm[Hg] MD Viktor Sotelo Work Phone: [facility] 12-15-2022 07:30-0400 Heart rate 81 /min MD Viktor Sotelo Work Phone: [facility] 12-15-2022 07:30-0400 SaO2% (BldA) [Mass fraction] 100 % MD Viktor Sotelo Work Phone: [facility] 12-15-2022 07:30-0400 Systolic blood pressure 115 mm[Hg] MD Viktor Sotelo Work Phone: [facility] 12-14-2022 20:18-0400 Respiratory rate 16 /min MD Viktor Sotelo Work Phone: [facility] 12-12-2022 13:58-0400 Body height 167.64 cm MD Viktor Sotelo Work Phone: [facility] 12-11-2022 20:49-0400 Diastolic blood pressure 87 mm[Hg] MD Viktor Sotelo Work Phone: [facility] 12-11-2022 20:49-0400 Heart rate 70 /min MD Viktor Sotelo Work Phone: [facility] 12-11-2022 20:49-0400 Respiratory rate 18 /min MD Viktor Sotelo Work Phone: [facility] 12-11-2022 20:49-0400 SaO2% (BldA) [Mass fraction] 99 % MD Viktor Sotelo Work Phone: [facility] 12-11-2022 20:49-0400 Systolic blood pressure 132 mm[Hg] MD Viktor Sotelo Work Phone: [facility] 12-11-2022 17:43-0400 Body height 167.64 cm MD Viktor Sotelo Work Phone: [facility] 12-11-2022 17:43-0400 Body temperature 97.7 [degF] MD Viktor Sotelo Work Phone: [facility] 12-11-2022 17:43-0400 Body weight 108.86 kg MD Viktor Sotelo Work Phone: [facility] 11-01-2022 07:24-0400 Body temperature 97.6 [degF] MD Viktor Sotelo Work Phone: [facility] 11-01-2022 07:24-0400 Diastolic blood pressure 66 mm[Hg] MD Viktor Sotelo Work Phone: [facility] 11-01-2022 07:24-0400 Heart rate 67 /min MD Viktor Sotelo Work Phone: [facility] 11-01-2022 07:24-0400 Respiratory rate 16 /min MD Viktor Sotelo Work Phone: [facility] 11-01-2022 07:24-0400 SaO2% (BldA) [Mass fraction] 95 % MD Viktor Sotelo Work Phone: [facility] 11-01-2022 07:24-0400 Systolic blood pressure 104 mm[Hg] MD Viktor Sotelo Work Phone: [facility] 10-31-2022 14:36-0400 Body height 167.64 cm MD Viktor Sotelo Work Phone: [facility] 10-28-2022 19:02-0400 Body weight 110.67 kg MD Viktor Sotelo Work Phone: [facility] 10-28-2022 17:56-0400 Diastolic blood pressure 66 mm[Hg] MD Viktor Sotelo Work Phone: [facility] 10-28-2022 17:56-0400 Heart rate 57 /min MD Viktor Sotelo Work Phone: [facility] 10-28-2022 17:56-0400 Respiratory rate 16 /min MD Viktor Sotelo Work Phone: [facility] 10-28-2022 17:56-0400 SaO2% (BldA) [Mass fraction] 97 % MD Viktor Sotelo Work Phone: [facility] 10-28-2022 17:56-0400 Systolic blood pressure 132 mm[Hg] MD Viktor Sotelo Work Phone: [facility] 10-28-2022 14:47-0400 Body height 167.64 cm MD Viktor Sotelo Work Phone: [facility] 10-28-2022 14:47-0400 Body temperature 97.8 [degF] MD Viktor Sotelo Work Phone: [facility] 10-28-2022 14:47-0400 Body weight 111.25 kg MD Viktor Sotelo Work Phone: [facility] 10-18-2022 19:10-0400 Diastolic blood pressure 84 mm[Hg] MD Viktor Sotelo Work Phone: [facility] 10-18-2022 19:10-0400 Heart rate 71 /min MD Viktor Sotelo Work Phone: [facility] 10-18-2022 19:10-0400 Respiratory rate 18 /min MD Viktor Sotelo Work Phone: [facility] 10-18-2022 19:10-0400 SaO2% (BldA) [Mass fraction] 97 % MD Viktor Sotelo Work Phone: [facility] 10-18-2022 19:10-0400 Systolic blood pressure 141 mm[Hg] MD Viktor Sotelo Work Phone: [facility] 10-18-2022 16:53-0400 Body temperature 98 [degF] MD Viktor Sotelo Work Phone: [facility] 10-18-2022 16:51-0400 Body height 167.64 cm MD Viktor Sotelo Work Phone: [facility] 10-18-2022 16:51-0400 Body weight 112 kg MD Viktor Sotelo Work Phone: [facility] 09-28-2022 22:35-0400 Diastolic blood pressure 81 mm[Hg] MD Viktor Sotelo Work Phone: [facility] 09-28-2022 22:35-0400 Heart rate 97 /min MD Viktor Sotelo Work Phone: [facility] 09-28-2022 22:35-0400 Respiratory rate 18 /min MD Viktor Sotelo Work Phone: [facility] 09-28-2022 22:35-0400 SaO2% (BldA) [Mass fraction] 96 % MD Viktor Sotelo Work Phone: [facility] 09-28-2022 22:35-0400 Systolic blood pressure 131 mm[Hg] MD Viktor Sotelo Work Phone: [facility] 09-28-2022 21:15-0400 Body temperature 100.7 [degF] MD Viktor Sotelo Work Phone: [facility] 09-28-2022 19:07-0400 Body height 167.64 cm MD Viktor Sotelo Work Phone: [facility] 09-28-2022 19:07-0400 Body weight 114 kg MD Viktor Sotelo Work Phone: [facility] 09-07-2022 15:07-0400 Body temperature 97.8 [degF] MD Viktor Sotelo Work Phone: [facility] 09-07-2022 15:07-0400 Diastolic blood pressure 60 mm[Hg] MD Viktor Sotelo Work Phone: [facility] 09-07-2022 15:07-0400 Heart rate 78 /min MD Viktor Sotelo Work Phone: [facility] 09-07-2022 15:07-0400 SaO2% (BldA) [Mass fraction] 96 % MD Viktor Sotelo Work Phone: [facility] 09-07-2022 15:07-0400 Systolic blood pressure 100 mm[Hg] MD Viktor Sotelo Work Phone: [facility] 09-07-2022 07:30-0400 Respiratory rate 16 /min MD Viktor Sotelo Work Phone: [facility] 09-04-2022 14:15-0400 Body height 167.64 cm MD Viktor Sotelo Work Phone: [facility] 09-04-2022 02:40-0400 Body weight 111.13 kg MD Viktor Sotelo Work Phone: [facility] 08-13-2022 08:18-0500 Body temperature 98.1 [degF] MD Viktor Sotelo Work Phone: [facility] 08-13-2022 08:18-0500 Diastolic blood pressure 82 mm[Hg] MD Viktor Sotelo Work Phone: [facility] 08-13-2022 08:18-0500 Heart rate 60 /min MD Viktor Sotelo Work Phone: [facility] 08-13-2022 08:18-0500 Respiratory rate 16 /min MD Viktor Sotelo Work Phone: [facility] 08-13-2022 08:18-0500 SaO2% (BldA) [Mass fraction] 96 % MD Viktor Sotelo Work Phone: [facility] 08-13-2022 08:18-0500 Systolic blood pressure 126 mm[Hg] MD Viktor Sotelo Work Phone: [facility] 08-11-2022 21:50-0500 Body height 167.64 cm MD Viktor Sotelo Work Phone: [facility] 08-11-2022 21:50-0500 Body weight 114.75 kg MD Viktor Sotelo Work Phone: [facility] 08-05-2022 09:27-0500 Body temperature 98.1 [degF] MD Viktor Sotelo Work Phone: [facility] 08-05-2022 09:27-0500 Respiratory rate 16 /min MD Viktor Sotelo Work Phone: [facility] 08-05-2022 09:07-0500 Diastolic blood pressure 74 mm[Hg] MD Viktor Sotelo Work Phone: [facility] 08-05-2022 09:07-0500 Heart rate 83 /min MD Viktor Sotelo Work Phone: [facility] 08-05-2022 09:07-0500 Systolic blood pressure 124 mm[Hg] MD Viktor Sotelo Work Phone: [facility] 08-05-2022 09:05-0500 Body height 167.64 cm MD Viktor Sotelo Work Phone: [facility] 08-05-2022 09:05-0500 Body weight 115.21 kg MD Viktor Sotelo Work Phone: [facility] 08-02-2022 12:30-0500 Diastolic blood pressure 79 mm[Hg] MD Viktor Sotelo Work Phone: [facility] 08-02-2022 12:30-0500 Heart rate 68 /min MD Viktor Sotelo Work Phone: [facility] 08-02-2022 12:30-0500 Systolic blood pressure 143 mm[Hg] MD Viktor Sotelo Work Phone: [facility] 08-02-2022 12:15-0500 Respiratory rate 18 /min MD Viktor Sotelo Work Phone: [facility] 08-02-2022 10:30-0500 Body temperature 97.2 [degF] MD Viktor Sotelo Work Phone: [facility] 08-02-2022 08:36-0500 SaO2% (BldA) [Mass fraction] 94 % MD Viktor Sotelo Work Phone: [facility] 08-01-2022 22:01-0500 Body height 167.64 cm MD Viktor Sotelo Work Phone: [facility] 08-01-2022 22:01-0500 Body weight 115.21 kg MD Viktor Sotelo Work Phone: [facility] 07-22-2022 10:12-0500 Body height 167.64 cm Viktor Sotelo Work Phone: [facility] [address] DO Work Phone: 07-22-2022 10:12-0500 Body mass index (BMI) [Ratio] 41.8 kg/m2 Viktor Sotelo Work Phone: [facility] DO Work Phone: 07-22-2022 10:12-0500 Body surface area Derived from formula 2.23 m2 Viktor Sotelo Work Phone: [facility] DO Work Phone: 07-22-2022 10:12-0500 Body weight 117.48 kg Viktor Sotelo Work Phone: [facility] DO Work Phone: 07-22-2022 10:12-0500 Diastolic blood pressure 72 mm[Hg] Viktor Sotelo Work Phone: [facility] DO Work Phone: 07-22-2022 10:12-0500 Heart rate 73 /min Viktor Sotelo Work Phone: [facility] DO Work Phone: 07-22-2022 10:12-0500 Systolic blood pressure 114 mm[Hg] Viktor Sotelo Work Phone: [facility] DO Work Phone: 07-17-2022 15:30-0500 Body temperature 97.9 [degF] MD Viktor Sotelo Work Phone: [facility] 07-17-2022 15:30-0500 Diastolic blood pressure 68 mm[Hg] MD Viktor Sotelo Work Phone: [facility] 07-17-2022 15:30-0500 Heart rate 78 /min MD Viktor Sotelo Work Phone: [facility] 07-17-2022 15:30-0500 Respiratory rate 18 /min MD Vkitor Sotelo Work Phone: [facility] 07-17-2022 15:30-0500 SaO2% (BldA) [Mass fraction] 100 % MD Viktor Sotelo Work Phone: [facility] 07-17-2022 15:30-0500 Systolic blood pressure 149 mm[Hg] MD Viktor Sotelo Work Phone: [facility] 07-16-2022 16:29-0500 Body height 167.64 cm MD Viktor Sotelo Work Phone: [facility] 07-15-2022 13:12-0500 Body weight 115.66 kg MD Viktor Sotelo Work Phone: [facility] 07-15-2022 10:53-0500 Body height 167.64 cm MD Viktor Soetlo Work Phone: [facility] 07-15-2022 10:53-0500 Body temperature 98.7 [degF] MD Viktor Sotelo Work Phone: [facility] 07-15-2022 10:53-0500 Body weight 115.85 kg MD Viktor Sotelo Work Phone: [facility] 07-15-2022 10:53-0500 Diastolic blood pressure 80 mm[Hg] MD Viktor Sotelo Work Phone: [facility] 07-15-2022 10:53-0500 Heart rate 72 /min MD Viktor Sotelo Work Phone: [facility] 07-15-2022 10:53-0500 Respiratory rate 20 /min MD Viktor Sotelo Work Phone: [facility] 07-15-2022 10:53-0500 SaO2% (BldA) [Mass fraction] 98 % MD Viktor Sotelo Work Phone: [facility] 07-15-2022 10:53-0500 Systolic blood pressure 149 mm[Hg] MD Viktor Sotelo Work Phone: [facility] 07-09-2022 13:38-0500 Diastolic blood pressure 71 mm[Hg] MD Viktor Sotelo Work Phone: [facility] 07-09-2022 13:38-0500 Heart rate 85 /min MD Viktor Sotelo Work Phone: [facility] 07-09-2022 13:38-0500 Systolic blood pressure 109 mm[Hg] MD Viktor Sotelo Work Phone: [facility] 07-09-2022 11:35-0500 Body temperature 98.1 [degF] MD Viktor Sotelo Work Phone: [facility] 07-09-2022 11:35-0500 Respiratory rate 18 /min MD Viktor Sotelo Work Phone: [facility] 07-09-2022 11:35-0500 SaO2% (BldA) [Mass fraction] 97 % MD Viktor Sotelo Work Phone: [facility] 06-26-2022 22:17-0500 Respiratory rate 16 /min MD Viktor Sotelo Work Phone: [facility] 06-26-2022 21:54-0500 Body temperature 97.3 [degF] MD Viktor Sotelo Work Phone: [facility] 06-26-2022 21:53-0500 Diastolic blood pressure 81 mm[Hg] MD Viktor Sotelo Work Phone: [facility] 06-26-2022 21:53-0500 Heart rate 83 /min MD Viktor Sotelo Work Phone: [facility] 06-26-2022 21:53-0500 Systolic blood pressure 132 mm[Hg] MD Viktor Sotelo Work Phone: [facility] 06-26-2022 21:37-0500 Body height 167.64 cm MD Viktor Sotelo Work Phone: [facility] 06-26-2022 21:37-0500 Body weight 117.93 kg MD Viktor Sotelo Work Phone: [facility] 06-25-2022 22:03-0500 Diastolic blood pressure 78 mm[Hg] MD Viktor Sotelo Work Phone: [facility] 06-25-2022 22:03-0500 Heart rate 90 /min MD Viktor Sotelo Work Phone: [facility] 06-25-2022 22:03-0500 Respiratory rate 18 /min MD Viktor Sotelo Work Phone: [facility] 06-25-2022 22:03-0500 SaO2% (BldA) [Mass fraction] 97 % MD Viktor Sotelo Work Phone: [facility] 06-25-2022 22:03-0500 Systolic blood pressure 127 mm[Hg] MD Viktor Sotelo Work Phone: [facility] 06-25-2022 17:29-0500 Body height 167.64 cm MD Viktor Sotelo Work Phone: [facility] 06-25-2022 17:29-0500 Body temperature 98.3 [degF] MD Viktor Sotelo Work Phone: [facility] 06-25-2022 17:29-0500 Body weight 117 kg MD Viktor Sotelo Work Phone: [facility] 06-25-2022 12:40-0500 Body temperature 97.9 [degF] MD Viktor Sotelo Work Phone: [facility] 06-25-2022 12:40-0500 Diastolic blood pressure 80 mm[Hg] MD Viktor Sotelo Work Phone: [facility] 06-25-2022 12:40-0500 Heart rate 66 /min MD Viktor Sotelo Work Phone: [facility] 06-25-2022 12:40-0500 Respiratory rate 18 /min MD Viktor Sotelo Work Phone: [facility] 06-25-2022 12:40-0500 SaO2% (BldA) [Mass fraction] 98 % MD Viktor Sotelo Work Phone: [facility] 06-25-2022 12:40-0500 Systolic blood pressure 129 mm[Hg] MD Viktor Sotelo Work Phone: [facility] 02-13-2022 07:45-0400 60 1 Viktor Sotelo Work Phone: [facility] [address] [place] Work Phone: Comment on above: [id number] 01-20-2022 19:14-0400 Diastolic blood pressure 64 mm[Hg] MD Viktor Sotelo Work Phone: [facility] 01-20-2022 19:14-0400 Heart rate 64 /min MD Viktor Sotelo Work Phone: [facility] 01-20-2022 19:14-0400 Respiratory rate 18 /min MD Viktor Sotelo Work Phone: [facility] 01-20-2022 19:14-0400 SaO2% (BldA) [Mass fraction] 100 % MD Viktor Sotelo Work Phone: [facility] 01-20-2022 19:14-0400 Systolic blood pressure 107 mm[Hg] MD Viktor Sotelo Work Phone: [facility] 01-20-2022 14:29-0400 Body temperature 98.4 [degF] MD Viktor Sotelo Work Phone: [facility] 01-20-2022 [id number] Body height 167.64 cm MD Viktor Sotelo Work Phone: [facility] 01-20-2022 13:[id number] Body weight 102.4 kg MD Viktor Sotelo Work Phone: [facility] 01-14-2022 10:20-0400 Diastolic blood pressure 74 mm[Hg] Viktor Sotelo Work Phone: [facility] [address] DO Work Phone: 01-14-2022 10:20-0400 Heart rate 65 /min Viktor Sotelo Work Phone: [facility] DO Work Phone: 01-14-2022 10:20-0400 Systolic blood pressure 110 mm[Hg] Viktor Sotelo Work Phone: [facility] [address] DO Work Phone: 01-14-2022 10:19-0400 Body height 167.64 cm Viktor Sotelo Work Phone: [facility] [address] DO Work Phone: 01-14-2022 10:19-0400 Body mass index (BMI) [Ratio] 36.68 kg/m2 Viktor Sotelo Work Phone: [facility] [address] DO Work Phone: 01-14-2022 10:19-0400 Body surface area Derived from formula 2.11 m2 Viktor Sotelo Work Phone: [facility] [address] DO Work Phone: 01-14-2022 10:19-0400 Body weight 103.08 kg Viktor Sotelo Work Phone: [facility] [address] DO Work Phone: 12-11-2021 07:30-0400 Body temperature 98.4 [degF] MD Viktor Sotelo Work Phone: [facility] 12-11-2021 07:30-0400 Diastolic blood pressure 66 mm[Hg] MD Viktor Sotelo Work Phone: [facility] 12-11-2021 07:30-0400 Heart rate 86 /min MD Viktor Sotelo Work Phone: [facility] 12-11-2021 07:30-0400 Respiratory rate 16 /min MD Viktor Sotelo Work Phone: [facility] 12-11-2021 07:30-0400 SaO2% (BldA) [Mass fraction] 95 % MD Viktor Sotelo Work Phone: [facility] 12-11-2021 07:30-0400 Systolic blood pressure 128 mm[Hg] MD Viktor Sotelo Work Phone: [facility] 12-10-2021 15:45-0400 Body height 167.64 cm MD Viktor Sotelo Work Phone: [facility] 12-09-2021 14:00-0400 Body mass index (BMI) [Ratio] 35.4 kg/m2 MD Viktor Sotelo Work Phone: [facility] 12-09-2021 09:00-0400 Body weight 99.75 kg MD Viktor Sotelo Work Phone: [facility] 04-30-2021 13:15-0500 Body height 167.64 cm Viktor Sotelo Work Phone: ON-Qxwuvvrgqmuo-[facility]A [facility] Work Phone: 04-30-2021 13:15-0500 Body mass index (BMI) [Ratio] 31.47 kg/m2 Viktor Sotelo Work Phone: FJ-Liirbpimupgp-OUQ [facility] Work Phone: 04-30-2021 13:15-0500 Body surface area Derived from formula 1.98 m2 Viktor Sotelo Work Phone: SD-Dyisqqtmpbmw-XNG [facility] Work Phone: 04-30-2021 13:15-0500 Body weight 88.45 kg Viktor Sotelo Work Phone: QV-Zixdeowitout-GIF Work Phone: 04-30-2021 13:15-0500 Diastolic blood pressure 82 mm[Hg] Viktor Sotelo Work Phone: NC-Tguebzshpctx-KOS [facility] Work Phone: 04-30-2021 13:15-0500 Heart rate 70 /min Viktor Sotelo Work Phone: EX-Zvujtiktqfda-ZPG [facility] Work Phone: 04-30-2021 13:15-0500 Respiratory rate 18 /min Viktor Sotelo Work Phone: PQ-Llyptpddtghv-OLT [facility] Work Phone: 04-30-2021 13:15-0500 Systolic blood pressure 118 mm[Hg] Viktor Sotelo Work Phone: AB-Zdczkvfbntwb-QDI [facility] Work Phone: 05-25-2020 17:24-0500 SaO2% (BldA) [Mass fraction] 64 % [facility] Encounters Encounter Date Encounter Type Care Provider Facility Start: 01-02-2025 ambulatory Michael Corcoran ty:[facility] Start: 11-23-2024 ambulatory Nimesh Jones acility:[facility] Start: 11-17-2024 Non-patient / Non-visit Viktor Sotelo MD Work Phone: [facility] Work Phone: Start: 11-17-2024 End: 11-17-2024 Admission to same day surgery center Viktor Sotelo MD Work Phone: [facility] [place] Start: 11-17-2024 End: 11-17-2024 ambulatory Viktor Sotelo MD Work Phone: [facility] Work Phone: Start: 11-15-2024 Registered Recurring Viktor jenkins MD Work Phone: [facility] Start: 11-07-2024 End: 11-07-2024 Patient encounter procedure Viktor Sotelo MD Work Phone: [facility] [place] Work Phone: Start: 10-31-2024 Non-patient / Non-visit Viktor Sotelo MD Work Phone: [facility] [place] Work Phone: Start: 09-26-2024 Non-patient / Non-visit Viktor Sotelo MD Work Phone: [facility] [place] Work Phone: Start: 09-26-2024 End: 09-26-2024 ambulatory Tete Snell MD Facility:[facility] Start: 08-31-2024 End: 08-31-2024 Subsequent hospital visit by physician Alondra [facility] Comment on above: Pacemaker; Sick sinus syndrome (Multi) Start: 08-31-2024 End: 08-31-2024 Patient encounter procedure Viktor Sotelo MD Work Phone: [facility] [place] Work Phone: Start: 08-31-2024 End: 08-31-2024 ambulatory Viktor Sotelo MD Work Phone: [facility] Work Phone: Start: 08-24-2024 End: 08-24-2024 ambulatory Viktor Sotelo Facility:[facility] Start: 08-24-2024 Non-patient / Non-visit Viktor Sotelo MD Work Phone: [facility] Start: 08-23-2024 Registered Recurring Viktor jenkins MD Work Phone: [facility] Start: 07-25-2024 End: 07-25-2024 ambulatory Tete Snell MD Facility:[facility] [place] Start: 07-11-2024 Non-patient / Non-visit Viktor Sotelo MD Work Phone: [facility] [place] Work Phone: Start: 07-11-2024 End: 07-11-2024 ambulatory Tete Snell MD Facility:[facility] [place] Start: 07-05-2024 End: 07-05-2024 ambulatory Michael VIVEROS Facility:[facility] Start: 07-05-2024 End: 07-05-2024 Patient encounter procedure Michael VIVEROS [facility] Start: 07-05-2024 Non-patient / Non-visit Viktor Sotelo MD Work Phone: [facility] Work Phone: Start: 07-04-2024 End: 07-04-2024 Patient encounter procedure Viktor Sotelo MD Work Phone: [facility] [place] Work Phone: Start: 07-04-2024 End: 07-04-2024 ambulatory Viktor Sotelo MD Work Phone: [facility] Work Phone: Start: 06-27-2024 End: 06-27-2024 ambulatory Tete Snell MD Facility:[facility] [place] Start: 06-21-2024 Registered Recurring Viktor jenkins MD Work Phone: [facility] Start: 06-10-2024 End: 06-10-2024 Patient encounter procedure Viktor Sotelo MD Work Phone: [facility] Work Phone: Start: 06-02-2024 End: 06-02-2024 ambulatory ESTELA E SHELDON Facility:[facility] [place] Start: 06-02-2024 End: 06-02-2024 Patient encounter procedure ESTELA E SHELDON [facility] Start: 06-02-2024 Non-patient / Non-visit Viktor Sotelo MD Work Phone: [facility] [place] Work Phone: Start: 05-30-2024 End: 05-30-2024 Patient encounter procedure Viktor Sotelo MD Work Phone: [facility] [place] Work Phone: Start: 05-30-2024 End: 05-30-2024 ambulatory Viktor Sotelo Facility:[facility] Start: 05-30-2024 End: 05-30-2024 ambulatory ESTELA E SHELDON Facility: [facility] Start: 05-30-2024 End: 05-30-2024 Patient encounter procedure ESTELA E SHELDON [facility] Start: 05-25-2024 End: 05-25-2024 ambulatory RITA [facility] Start: 05-25-2024 End: 05-25-2024 Subsequent hospital visit by physician Alondra [facility] Comment on above: Pacemaker; Sick sinus syndrome (Multi) Start: 05-03-2024 End: 05-03-2024 ambulatory [facility] Start: 05-03-2024 End: 05-03-2024 Patient encounter procedure ESTELA CHUNG [facility] Start: 02-10-2024 End: 02-10-2024 ambulatory [facility] Start: 02-10-2024 End: 02-10-2024 Subsequent hospital visit by physician Alondra [facility] Comment on above: Pacemaker; Sick sinus syndrome (Multi) Start: 11-12-2023 End: 11-12-2023 ambulatory MD Viktor Sotelo Work Phone: [facility] Work Phone: Start: 11-12-2023 End: 11-12-2023 Patient encounter procedure MD Viktor Sotelo Work Phone: [facility] Work Phone: Start: 11-09-2023 Registered Recurring MD Viktor Sotelo Work Phone: [facility] Start: 11-04-2023 End: 11-04-2023 ambulatory [facility] Start: 11-04-2023 End: 11-04-2023 Subsequent hospital visit by physician Alondra [facility] Comment on above: Pacemaker; Sick sinus syndrome (Multi) Start: 10-29-2023 End: 10-31-2023 Evaluation and management of inpatient VIKTOR SOTELO [facility] Start: 10-29-2023 Non-patient / Non-visit MD Viktor Sotelo Work Phone: [facility] [place] Work Phone: Start: 10-28-2023 Non-patient / Non-visit MD Viktor Sotelo Work Phone: [facility] Work Phone: Start: 10-27-2023 Non-patient / Non-visit MD Viktor Sotelo Work Phone: [facility] [place] Work Phone: Start: 10-26-2023 Non-patient / Non-visit MD Viktor Sotelo Work Phone: [facility] [place] Work Phone: Start: 07-29-2023 End: 07-29-2023 Subsequent hospital visit by physician Alondra [facility] Comment on above: Pacemaker; Sick sinus syndrome (CMS/HCC) Start: 04-28-2023 End: 04-28-2023 Patient encounter procedure ESTELA CHUNG [facility] Start: 04-24-2023 End: 04-24-2023 Subsequent hospital visit by physician Alondra [facility] Comment on above: Pacemaker; Sick sinus syndrome (CMS/HCC) Start: 01-21-[address] Viktor Sotelo Facility:[id number] Start: 01-21-2023 End: 01-21-2023 ambulatory MD Viktor Sotelo Work Phone: [facility] Work Phone: Start: 01-21-2023 End: 01-21-2023 Patient encounter procedure MD Viktor Sotelo Work Phone: [facility] [place] Work Phone: Start: 01-20-2023 Current tobacco non-user cad cap copd pv dm Viktor Sotelo Work Phone: [facility] [address] Work Phone: Start: 01-20-[address] Viktor Sotelo Facility:[id number] Start: 12-19-2022 ambulatory Dr. Viktor Sotelo Facility:[id number] Start: 12-19-2022 End: 12-19-2022 ambulatory MD Viktor Sotelo Work Phone: [facility] Work Phone: Start: 12-19-2022 End: 12-19-2022 Patient encounter procedure MD Viktor Sotelo Work Phone: [facility]-Pacemaker Check Start: 12-11-2022 End: 12-15-2022 Evaluation and management of inpatient MD Viktor Sotelo Work Phone: [facility] Work Phone: Start: 12-09-2022 End: 12-09-2022 Patient encounter procedure Michael VIVEROS [facility] Start: 11-03-2022 Registered Recurring MD Viktor Sotelo Work Phone: [facility] Credible Start: 10-28-2022 End: 11-01-2022 Evaluation and management of inpatient MD Viktor Sotelo Work Phone: [facility] Work Phone: Start: 10-28-2022 Registered Recurring MD Viktor Sotelo Work Phone: [facility] Start: 10-21-[address] Viktor Sotelo Facility:[id number] Start: 10-18-2022 End: 10-18-2022 Emergency department patient visit MD Viktor Sotelo Work Phone: [facility]gency Room Work Phone: Start: 10-16-2022 End: 10-16-2022 ambulatory KRISTA HARVEY . Facility:H1 Start: 09-28-2022 End: 09-28-2022 Emergency department patient visit MD Viktor Sotelo Work Phone: [facility] Work Phone: Start: 09-03-2022 End: 09-07-2022 Evaluation and management of inpatient MD Viktor Sotelo Work Phone: [facility] Work Phone: Start: 09-03-2022 End: 09-03-2022 Patient encounter procedure ESTELA CHUNG [facility] Start: 08-11-2022 End: 08-13-2022 Evaluation and management of inpatient MD Viktor Sotelo Work Phone: [facility]-3 [facility] Post Work Phone: Start: 08-05-2022 End: 08-05-2022 ambulatory MD Viktor Sotelo Work Phone: [facility] Work Phone: Start: 08-05-2022 End: 08-05-2022 Patient encounter procedure MD Viktor Sotelo Work Phone: [facility] Labor - O/P Start: 08-01-2022 End: 08-02-2022 Evaluation and management of inpatient MD Viktor Sotelo Work Phone: [facility] Labor and Delivery Work Phone: Start: 07-25-2022 End: 07-25-2022 ambulatory MD Viktor Sotelo Work Phone: [facility] Work Phone: Start: 07-25-2022 End: 07-25-2022 Departed Referred MD Viktor Sotelo Work Phone: [facility]-Lab [place] Work Phone: Start: 07-22-2022 Current tobacco non-user cad cap copd pv dm Viktor Sotelo Work Phone: [facility] DO Work Phone: Start: 07-22-[address] Viktor Sotelo Facility:[id number] Start: 07-15-2022 End: 07-17-2022 Evaluation and management of inpatient MD Viktor Sotelo Work Phone: [facility] Work Phone: Start: 07-09-2022 End: 07-09-2022 ambulatory MD Viktor Sotelo Work Phone: [facility] Work Phone: Start: 07-09-2022 End: 07-09-2022 Discharged Recurring MD Viktor Sotelo Work Phone: [facility]-Infusion Therapy - O/P Work Phone: Start: 06-30-2022 End: 06-30-2022 ambulatory MD Viktor Sotelo Work Phone: [facility] Work Phone: Start: 06-30-2022 End: 06-30-2022 Patient encounter procedure MD Viktor Sotelo Work Phone: [facility]-Lab [facility] [place] Work Phone: Start: 06-26-2022 End: 06-26-2022 ambulatory MD Viktor Sotelo Work Phone: [facility] Work Phone: Start: 06-26-2022 End: 06-26-2022 Patient encounter procedure MD Viktor Sotelo Work Phone: [facility]-3 [place] Labor - O/P Start: 06-25-2022 End: 06-25-2022 Emergency department patient visit MD Viktor Sotelo Work Phone: [facility]-Emergency Room Work Phone: Start: 06-25-2022 Registered Recurring MD Viktor Sotelo Work Phone: [facility]-Infusion Therapy - O/P Work Phone: Start: 04-28-2022 End: 04-29-[address] VIKTOR SOTELO Facility:H1 Start: 04-17-[address] Viktor Sotelo Facility:[id number] Start: 02-14-2022 Chart Update Viktor Sotelo Work Phone: [facility] DO Work Phone: Start: 02-13-2022 Patient encounter procedure Viktor Sotelo Work Phone: [facility] [address] [place] Work Phone: Start: 02-13-[address] Rita Olivia F acility:[id number] Start: 01-20-2022 End: 01-20-2022 Emergency department patient visit MD Viktor Sotelo Work Phone: [facility]gency Room Start: 01-14-2022 Current tobacco non-user cad cap copd pv dm Viktor Sotelo Work Phone: [facility] DO Work Phone: Start: 12-18-2021 ambulatory Clemente simmons MD Work Phone: General Surgery Comment on above: Port Start: 12-16-2021 End: 12-16-2021 Patient encounter procedure MD Viktor Sotelo Work Phone: [facility] Start: 12-08-2021 End: 12-11-2021 Evaluation and management of inpatient MD Viktor Sotelo Work Phone: [address] Start: 09-18-2021 Telephone encounter Clemente Bernstein MD Work Phone: Gastroenterology Comment on above: Patient Update Start: 07-19-2021 Result Review Viktor Sotelo Work Phone: [facility]DI Work Phone: Start: 04-30-2021 Current tobacco non-user cad cap copd pv dm Viktor Sotelo Work Phone: [facility]RXLKG Work Phone: Start: 03-20-2021 Patient encounter procedure Viktor Sotelo Work Phone: [facility] [address] Work Phone: Start: 01-24-2020 End: 01-25-2020 Patient encounter procedure ROSELINE Helms [facility] Start: 01-24-2020 End: 01-24-2020 Subsequent hospital visit by physician [facility] Schedule [facility] Comment on above: Arrived Procedures Date Procedure Procedure Detail Performing Clinician Start: 11-17-2024 Central venous cannula insertion Viktor Sotelo MD Work Phone: Start: 11-17-2024 Plain chest X-ray Viktor Sotelo MD Work Phone: Start: 08-31-2024 MRI of cervical spine without [...] dilation of urethral stricture ESTELA SHELDON Start: 01-24-2020 Sleep std airflow hrt rate&o2 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 Start: 07-10-2019 Adult depression screening assessment Clemente Eng MD Work Phone: Appendectomy Viktor Sotelo Work Phone: Appendectomy ESTELA SHELDON Cholecystectomy Viktor sanches Work Phone: Cholecystectomy ESTELA [...] 2) Zoste r Vaccines (1 of 2) [facility] Start: 11-17-2024 [facility] Start: 11-17-2024 [facility] Start: 02-21-2024 COVID-19 Vaccine ( season) COVID-19 Vaccine ( season) [facility] Start: 02-21-2024 Influenza vaccination [facility] Start: 07-07-2023 FUV, Provider: Rita Olivia, Status: Pen, Time: 8:40 AM FUV, Provider: Rita Olivia, Status: Pen, Time: 8:40 AM [facility] DO Work Phone: Start: 07-07-2023 End: 07-07-2023 Patient encounter procedure 07/07/2023 8:40 AM EST Office Visit [facility] [address] [facility] [address] [place] [id number] Rita Olivia MD [address] [facility] [address], [place] [address] [place], [place] [id number] [facility] Start: 02-20-2023 COVID-19 Vaccine ( season) COVID-19 Vaccine ( season) [facility] Start: 02-20-2023 Influenza vaccination Influenza Vacc ine (#1) [facility] Start: 01-20-2023 FUV, Provider: Rita Olivia, Status: Pen, Time: 8:40 AM FUV, Provider: Rita Olivia, Status: Pen, Time: 8:40 AM [facility] DO Work Phone: Start: 01-20-2023 Patient encounter procedure [id number], Provider: [facility], Status: Pen, Time: 8:00 AM [facility] [address] DO Work Phone: Start: 12-15-2022 [facility] Start: 12-11-2022 Referral to Tool Crib Lead [facility] Start: 12-11-2022 Hospital admission [facility] Start: 12-11-2022 Bacteria identified in Urine by Culture Urine Culture [facility] Start: 11-01-2022 [facility] Start: 10-31-2022 Administration of prophylactic treatment [facility] Start: 2022 Screening for malign ant neoplasm of breast Mammogram [facility] Start: 10-29-2022 Referral to clinical platform architect [facility] Start: 10-28-2022 Referral to Tool Crib Lead [facility] Start: 10-28-2022 Hospital admission [facility] Start: 10-28-2022 Bacteria identified in Urine by Culture [facility] Start: 09-28-2022 CT angiography of thorax CT an ignacia chest PE protocol [facility] Start: 09-28-2022 CT Chest [facility] Start: 09-28-2022 Plain chest X-ray XR chest 2V* [facility] Start: 09-28-2022 XR Chest 2 Views [facility] Start: 09-28-2022 Bacteria identified in Urine by Culture [facility] Start: 09-07-2022 [facility] Start: 09-03-2022 Hospital admission [facility] Start: 08-13-2022 [facility] Start: 08-12-2022 Referral to psychiatrist [facility] Start: 08-12-2022 Hospital admission [facility] Start: 08-11-2022 Extraction of Produc ts of Conception, Low Forceps, Via Natural or Artificial Opening Extraction of Products of Conception, Low Forceps, Via Natural or Artificial Opening [facility] Start: 08-05-2022 [facility] Start: 08-02-2022 [facility] Start: 08-02-2022 Referral to neurologist [facility] Start: 08-02-2022 Hospital admission [facility] Start: 08-02-2022 [facility] Start: 08-01-2022 Hospital admission [facility] Start: 08-01-2022 Bacteria identified in Urine by Culture [facility] Start: 07-25-2022 Group B Streptococcu s Culture Group B Streptococcus Culture [facility] Start: 07-22-2022 FUV, Provider: Rita Olivia, Status: Pen, Time: 9:40 AM FUV, Provider: Rita Olivia, Status: Pen, Time: 9:40 AM [facility] DO Work Phone: Start: 07-17-2022 [facility] Start: 07-15-2022 Bacteria identified in Urine by Culture [facility] Start: 07-15-2022 Referral to Tool Crib Lead [facility] Start: 07-15-2022 Sleep disorder assessment [facility] Start: 07-15-2022 Hospital admission [facility] Start: 06-26-2022 [facility] Start: 06-26-2022 Hospital admission [facility] Start: 06-26-2022 [facility] Start: 06-26-2022 Bacteria identified in Urine by Culture [facility] Start: 06-25-2022 Bacteria identified in Urine by Culture [facility] Start: 02-20-2022 Influenza vaccination INFLUENZA (#1) [facility] Start: 02-13-2022 ECHO, Provider: EDSON DUNN [facility] ,[id number], Status: Pen, Time: 7:45 AM ECHO, Provider: ЕКАТЕРИНА [facility] ,[id number], Status: Pen, Time: 7:45 AM [facility] [address] DO Work Phone: Start: 12-11-2021 [facility] Work Phone: Start: 12-10-2021 Referral to blue line operator [facility] Work Phone: Start: 12-09-2021 Hospital admission [facility] Work Phone: Start: 07-09-2021 Patient encounter procedure GERTRUDE, Provider: [facility], Status: Pen, Time: 10:20 AM [facility]-AVRK C Work Phone: Start: 06-19-2021 EPVNEURO, Provider: Dennis Almendarez, Status: Pen, Time: 9:00 AM EPVNEURO, Provider: Dennis Almendarez, Status: Pen, Time: 9:00 AM [facility]ds[facility]rx[facility]-Ivs well 3200 Work Phone: Start: 02-20-2021 Influenza vaccination INFLUENZA (#1) [facility] Start: 07-10-2020 Adult depression screening assessment DEPRESSION SCREENING [facility] Start: 02-21-2020 Influenza vaccination Flu vaccine (# 1) [place] Start: 2018 HPV TESTING HPV TESTING [facility] Start: 2018 PAP TESTING PAP TESTING [facility] Start: 05-17-2009 MMR Vaccines (1 of 1 - Standard series) MMR Vaccines (1 of 1 - Standard series) [facility] Start: 05-17-2009 Varicella vaccination [facility] Start: 2004 DTaP/Tdap/Td Vaccine s (1 - Tdap) DTaP/Tdap/Td Vaccines (1 - Tdap) [facility] Start: 10-31-2003 Screening for malign ant neoplasm of cervix [facility] Start: 2001 DTaP/Tdap/Td vaccine (1 - Tdap) DTaP/Tdap/Td vaccine (1 - Tdap) [place] Start: 2001 Hepatitis B Vaccines (1 of 3 - 19+ 3-dose series) Hepatitis B Vaccines (1 of 3 - 19+ 3-dose series) [facility] Start: 2001 Urine microalbumin profile DTAP,TDAP,TD (1 - Tdap) [facility] Start: 2000 Diabetes mellitus screening Diabetes Screening [facility] Start: 2000 HEPATITIS C SCREENING HEPATITIS C SC REENING [facility] Start: 2000 Hepatitis C screening Hepatitis C Sc [facility] Start: 2000 HIV SCREENING HIV SCREENING [facility] Start: 1997 HIV screening HIV screen María Cabello [place], [place] Start: 10-31-1987 COVID-19 VACCINE (1) COVID-19 VACCIN E (1) [facility] Start: 10-31-1983 Varicella vaccine (1 of 2 - 2-dose childhood series) Varicella vaccine (1 of 2 - 2-dose childhood series) [place] Start: 05-02-1983 COVID-19 VACCINE (#1) COVID-19 VACCI NE (#1) [facility] Start: 1982 Hepatitis B Vaccines (1 of 3 - 3-dose series) Hepatitis B Vaccines (1 of 3 - 3-dose series) [facility] Start: 1982 HIV screening HIV Screening [facility] Start: 1982 Lipid panel Lipid Panel [facility] Start: 1982 Medicare Annual Well ness Visit Medicare Annual Wellness Visit (AWV) [facility] End: 07-29-2023 Cardiac Device Check - Remote [facility] Service Area Work Phone: Comment on above: Once for 1 Occurrenc es starting 07/29/2023 until 07/29/2023 End: 11-04-2023 Cardiac Device Check - Remote [facility] Service Area Work Phone: Comment on above: Once for 1 Occurrenc es starting 11/04/2023 until 11/04/2023 End: 05-25-2024 Cardiac Device Check - Remote [facility] Service Area Work Phone: Comment on above: Once for 1 Occurrenc es starting 05/25/2024 until 05/25/2024 End: 02-10-2024 Cardiac Device Check - Remote [facility] Service Area Work Phone: Comment on above: Once for 1 Occurrenc es starting 02/10/2024 until 02/10/2024 End: 08-31-2024 Cardiac Device Check - Remote [facility] Service Area Work Phone: Comment on above: Once for 1 Occurrenc es starting 08/31/2024 until 08/31/2024 End: 01-24-2020 Home Sleep Study Home Sleep Study Sleep Center Routine One Time for 1 Occurrences starting 01/24/2020 until 01/24/2020 [facility] [place] Comment on above: One Time for 1 Occur rences starting 01/24/2020 until 01/24/2020 Patient Education [facility] Work Phone: Patient referral [facility] Work Phone: Reagin Ab [Presence] in Serum by RPR [facility] Streptococcus agalac tiae [Presence] in Unspecified specimen by Organism specific culture [facility] Immunizations Immunization Date Immunization Notes Care Provider Carlita arthur 05-27-2020 influenza virus vaccine, unspecified formulation ESTELA CHUNG [facility] 05-27-2020 influenza, injectabl e, quadrivalent, preservative free Clemente Eng MD Work Phone: [facility] 05-22-2020 influenza virus vaccine, unspecified formulation ESTELA CHUNG [facility] 08-29-2019 influenza virus vaccine, unspecified formulation Viktor Sotelo Work Phone: [facility] 320 DO Work Phone: 04-10-2019 influenza virus vaccine, unspecified formulation ESTELA CHUNG [facility] 04-10-2019 influenza, injectabl e, quadrivalent, preservative free Clemente Eng MD Work Phone: [facility] 04-19-2009 novel [id number], preservative-free, injectable Viktor Sotelo Work Phone: [facility] DO Work Phone: Payers Date Payer Category Payer Private Health Insurance 2022 Medicaid [id number] 2022 Self-pay [id number] 2021 Medicare AETNA MEDICARE A ETNA MEDICARE ASSURE [id number] 2021-Present [address] [place] [address] [id number] 2021 Medicare (Managed Care) AETNA ME DICARE ASSURE [id number] 2021 Private Health Insurance [id number] 2020 Medicaid MEDICAID [facility] MEDICAID [id number] 2020-Present [phone] [address] [place] [address] Medicaid [id number] 2020 Medicare MEDICARE MEDICAR E A AND B [id number] 2020-Present [phone] [place] [address] Medicare [id number] 2019 Unknown [id number] [id number] .[id number] 1982 Unknown [id number] 2.16.840.1.477982.3.579.2.1 74 1982 Unknown [id number] 2.16.840.1.939472.3.579.2.5 93 1982 Unknown [id number] 2.16.840.1.585348.3.579.2.5 93 1982 Unknown [id number] 2.16.840.1.807004.3.579.2.1 1982 Unknown [id number] 2.16.840.1.415227.3.579.2.1 1982 Unknown [id number] 2.16.840.1.135562.3.579.2.1 1982 Unknown [id number] 2.16.840.1.308783.3.579.2.1 1982 Unknown [id number] 2.16.840.1.189819.3.579.2.1 1982 Unknown [id number] 2.16.840.1.396595.3.579.2.3 1982 Unknown [id number] 2.16.840.1.343943.3.579.2.3 56 1982 Unknown [id number] 2.16840.1.803653.3.579.2.3 1982 Unknown [id number] 2.16.840.1.570032.3.579.2.3 1982 Unknown [id number] 2.16.840.1.645541.3.579.2.1 1982 Unknown [id number] 2.16.840.1.280863.3.579.2.7 1982 Unknown [id number] 2.16.840.1.165454.3.579.2.7 1982 Unknown [id number] 2.16.840.1.603995.3.579.2.7 1982 Unknown [id number] 2.16.840.1.733752.3.579.2.7 1982 Unknown [id number] 2.16.840.1.283075.3.579.2.7 1982 Unknown [id number] 2.16.840.1.074003.3.579.2.1 [facility] 1982 Unknown [id number] 2.16.840.1.341514.3.579.2.1 [facility] 1982 Unknown [id number] 2.16.840.1.981247.3.579.2.1 [facility] 1982 Unknown [id number] 2.16.840.1.934121.3.579.2.1 [facility] 1982 Unknown [id number] 2.16.840.1.615713.3.579.2.1 1982 Unknown [id number] 2.16.840.1.570808.3.579.2.1 1982 Unknown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 Sick sinus syndrome (Multi) Procedures Cardiac Device Check - Remote Rita Olivia MD [address], [address] [place] [address] Care Teams (unrecognized sec tion and content) Team Status: Active Member Role Status Dates Viktor Sotelo MD Primary Care Provider Active Team Status: Active Member Role Status Dates iVktor Sotelo MD Primary Care Provider Active Start: [...] Sotelo MD Primary Care Provider Active Start: September 26, 2024 Tete Snell MD Attending Provider Active Start: September 26, 2024 Team Status: Active Member Role Status Dates Viktor Sotelo MD Primary Care Provider Active Start: October 31, 2024 Emy Lemus MD Attending Provider Active St art: October 31, 2024 Team Status: Inactive Member Role Status Dates Viktor Sotelo MD Primary Care Provider Active Start: November 07, 2024 End: November 07, 2024 Gaurav Oliver MD Attending Provider Active S tart: November 07, 2024 End: November 07, 2024 Team Status: Active Member Role Status Dates Viktor Sotelo MD Primary Care Provider Active Start: November 15, 2024 Nimesh Cerda MD Attending Provider Active Start: November 15, 2024 Team Status: Inactive Member Role Status Dates Viktor Sotelo MD Primary Care Provider Active Start: November 17, 2024 End: November 17, 2024 Gaurav Oliver MD Attending Provider Active S tart: November 17, 2024 End: November 17, 2024 Team Status: Active Member Role Status Dates Viktor Sotelo MD Primary Care Provider Active Start: November 17, 2024 Gaurav Oliver MD Attending Provider, Other Provide r Active Start: November 17, 2024 Team Status: Inactive Member Role Status [...] Status: Active Member Role Status Dates Viktor Sotleo MD Primary Care Provider Active Start: June [...] 2023 Team Status: Active Member Role Status Tash Sotelo MD Primary Care Provider Active Start: November 09, 2023 Nimesh Cerda MD Attending Provider Active Start: November 09, 2023 Team Status: Inactive Member Role Status Dates Viktor Sotelo MD Primary Care Provide r, Attending Provider Active Start: November 12, 2023 End: November 12, 2023 Examining Chair Assembler Relationship Specialty Start Date End Date Viktor Sotelo MD [address] [place] [address] PCP - General 10/18/13 Examining Chair Assembler Relationship Specialty Start Date End Date Viktor Sotelo MD [address] [place] [address] PCP - General 10/18/13 Team Status: Inactive [...] Viktor Sotelo MD Primary Care Provider Active Dustin Cody MD Admit Provider, Attending Provider Active Team Status: Inactive Member Role Status Dates Viktor Sotelo MD Primary Care Provider Active Urbano Palma , DO Admit Provider, Attending Provider Active Team Status: Inactive Member Role Status Dates Viktor Sotelo MD Primary Care Provider Active Raffaele Ellsworth , DO Emergency Provider Active Toribio Cerda MD Admit Provider, Attending Pr ovider Active Team Status: Inactive Member Role Status Dates Viktor Sotelo MD Primary Care Provider Active Chelsie Cortez , INSURANCE AGENCY SALES MANAGER Emergency Provider Active Team Status: Active Member [...] Attending Pr ovider Active Poonam Dejesus , RN Other Provider Active Glenis Palmer , RN Other Provider Active Katarina Garrett , RN Other Provider Active Georgia Arana , RN Other Provider Active Yola Orta , RN Other Provider Active Yisel Martin , RN Other Provider Active Magda Hurley MD Other Provider Active Eh Jennings MD Other Provider Active Urmila Paiz , INSURANCE AGENCY SALES MANAGER Other Provider Active Mahad Mandel , DO Other Provider Active Luciano Pedro MD Other Provider Active Gerry Noble , DO Other Provider Active Mike Smart MD Other Provider Active Marylu Kemp MD Other Provider Active Afshan Hines , ANP- Other Provider Active Faby Watts MD Other Provider Active Mitesh Hoffman MD Other Provider Active Sintia Gan MD Other Provider Active Siobhan Zuniga MD Other Provider Active Dennis Espinoza , DO Other Provider Active Dawson Branham MD Other Provider Active Yossi Peterson MD Other Provider Active Gretta Mkai , SAND SCREENER OPERATOR-C Other Provider Active Yonny Bazan MD Other Provider Active Trace Morataya MD Other Provider Active Dimitris Joe MD Other Provider Active Verona Waterman , DO Other Provider Active All Bloom , DO Other Provider Active Joe Holland , DO Other Provider Active Candice Roman , INSURANCE AGENCY SALES MANAGER Other Provider Active Rosendo Holland , DO Other Provider Active Harriet Andrade MD Other Provider Active Chaparrita Mcnair , INSURANCE AGENCY SALES MANAGER Other Provider Active Sheri Montana , INSURANCE AGENCY SALES MANAGER Other Provider Active Genesis Pinedo RN Other [...] Active Eduardo Swain MD Admit Provider Active Examining Chair Assembler Relationship Specialty Start Date End Date Viktor Sotelo MD PCP - General 03/02/20 Examining Chair Assembler Relationship Specialty Start Date End Date Viktor Sotelo MD PCP - General 03/02/20 Examining Chair Assembler Relationship Specialty Start Date End Date Viktor Sotelo MD [address] [place] [address] PCP - General 03/02/20 Examining Chair Assembler Relationship Specialty Start Date End Date Viktor Sotelo MD [address] [place] [address] [place] [address] PCP - General 03/02/20 Examining Chair Assembler Relationship Specialty Start Date End Date Viktor Sotelo MD [address] [place] [address] [place] [address] PCP - General 03/02/20 Goals (unrecognized section [...] BE BASED ON THE PRIMARY CLINICAL RECORDS. [facility] [employer] [facility]. provides no warranty or guarantee of the accuracy or completeness of information in this document.
--- NOTE | 2024-12-04 21:34 | ED.CHESTPAI1 ---
HPI - Chest Pain General Chief Complaint: Chest Pain Stated Complaint: CHEST PAIN Time Seen by Provider: 12/04/24 21:25 Source: patient Mode of arrival: walk-in Limitations: no limitations History of Present Illness HPI narrative: This 44-year-old female who is status post Elaine-en-Y surgery in 2019 due to chronic abdominal pain and gastroparesis who is on Coumadin after having a DVT PE in the past presents for evaluation of an episode of palpitations and chest pain with tingling in her fingers at the time she got chest pain. The patient states she was lying down watching TV with her daughter when she started to feel palpitations. She states she felt mildly dizzy and had some pain in her chest and wanted to get checked out. She does not smoke. She denies a history of diabetes. She recently had all of her teeth taken out and is waiting dental surgery. She recently had a port replaced for IV fluids as she tends to get dehydrated due to her gastric bypass surgery. She denies any abdominal pain at this time stating her stomach is doing better than usual. She is not having any diarrhea. She denies any dizziness or syncope. She has no lower extremity pain or swelling. Upon arrival she is not having any chest pain. She did have a pacemaker placed as well as the Elaine-en-Y surgery due to bradycardia. Related Data Home Medications ?Medication ?Instructions ?Recorded ?Confirmed aripiprazole 30 mg tablet 30 mg PO DAILY 10/26/23 12/04/24 benztropine 1 mg tablet 1 mg PO BID 10/26/23 12/04/24 metoprolol succinate 25 mg 25 mg PO DAILY 10/26/23 12/04/24 tablet,extended release 24 hr mirtazapine 15 mg tablet 15 mg PO .HS 10/26/23 12/04/24 olanzapine 5 mg tablet 5 mg PO .qd PRN hallucinations 10/26/23 12/04/24 paliperidone palmitate 234 mg/1.5 234 mg IM Q30D 10/26/23 12/04/24 mL intramuscular syringe (Invega Sustenna) venlafaxine 150 mg 150 mg PO DAILY 10/26/23 12/04/24 capsule,extended release 24 hr warfarin 5 mg tablet 5 mg PO DAILY 03/21/24 12/04/24 gabapentin 400 mg capsule 600 mg PO TID 09/15/24 12/04/24 Allergies Allergy/AdvReac Type Severity Reaction Status Date / Time hydromorphone (From Dilaudid) Allergy Mild itching Verified 09/26/24 07:43 Review of Systems ROS Status of ROS 10 or more systems reviewed and unremarkable except as noted in history and below [facility] Medical History Hypertension ?I10 - Essential (primary) hypertension (ICD-10) Schizophrenia ?F20.9 - Schizophrenia, unspecified (ICD-10) DVT (deep venous thrombosis) ?I82.409 - Acute embolism and thrombosis of unspecified deep veins of unspecified lower extremity (ICD-10) Obesity ?E66.9 - Obesity, unspecified (ICD-10) Pacemaker ?Z95.0 - Presence of cardiac pacemaker (ICD-10) Sick sinus syndrome due to SA node dysfunction ?I49.5 - Sick sinus syndrome (ICD-10) Gastroparesis ?K31.84 - Gastroparesis (ICD-10) Surgical History S/P reconstruction of ligament of knee ?Z98.890 - Other specified postprocedural states (ICD-10) History of cholecystectomy ?Z90.49 - Acquired absence of other specified parts of digestive tract (ICD-10) Hx of appendectomy ?Z90.49 - Acquired absence of other specified parts of digestive tract (ICD-10) Social History Within the past year, how often did you have a drink containing alcohol: never Score interpretation: A score less than 3 is consistent with normal alcohol consumption. Smoking status: Never smoker Non-prescribed substance use: denies use Highest level of school completed/degree received: high school graduate Are you now , , , , never or living with a partner: living with partner Little interest or pleasure in doing things: not at all Feeling down, depressed, or hopeless: not at all Feel stressed/tense/nervous/anxious/difficulty sleeping: only a little Life stressor details: new baby at age of 42 Do you think of yourself as: straight/heterosexual Gender Identity: female Exam Narrative Exam Narrative: Vital signs and Nursing Notes reviewed: Patient is afebrile with a normal pulse, blood pressure is mildly elevated at 146/90, she has not hypoxic with pulse ox of 95% on room air General: Awake, alert, oriented, no acute distress, lying comfortably on the stretcher HEENT: Normocephalic atraumatic, mucous membranes are moist and pink, eyes are clear, normal conjunctiva, vision is grossly intact, posterior pharynx is normal in appearance. Neck: Supple, no meningeal signs, no JVD Chest: Lungs are clear to auscultation with good air entry, there is no wheezing rhonchi or rales appreciated no accessory muscle use, patient is speaking in complete sentences-no chest wall tenderness to palpation CVS: Regular rate and rhythm S1-S2, no murmurs rubs or gallops, pulses are brisk and equal bilaterally ABD: Soft, nondistended, nontender, no rebound guarding or rigidity, bowel sounds are normal, no pulsatile masses appreciated Extremities: Moving all extremities, no lower extremity tenderness or swelling noted, negative Homans' sign, pulses are brisk and equal bilaterally Skin: Normal in appearance without rash,pallor, petechiae or purpura Neuro: No focal deficits Constitutional Vital Signs, click to edit/add: Last Vital Signs Temp 98.0 F 12/04/24 21:19 Pulse 74 12/04/24 22:49 Resp 20 12/04/24 22:49 BP 112/77 12/04/24 22:49 Pulse Ox 98 12/04/24 22:49 O2 Del Method Room Air 12/04/24 22:49 Course Vital Signs Vital signs: Vital Signs Temperature 98.0 F 12/04/24 21:19 Pulse Rate 88 12/04/24 21:19 Respiratory Rate 18 12/04/24 21:19 Blood Pressure 146/90 H 12/04/24 21:19 Pulse Oximetry 95 12/04/24 21:19 Oxygen Delivery Method Room Air 12/04/24 21:19 Temperature 98.0 F 12/04/24 21:19 Pulse Rate 74 12/04/24 22:49 Respiratory Rate 20 12/04/24 22:49 Blood Pressure 112/77 12/04/24 22:49 Pulse Oximetry 98 12/04/24 22:49 Oxygen Delivery Method Room Air 12/04/24 22:49 MDM - Chest Pain MDM Narrative Medical decision making narrative: This 44-year-old female with a history of chronic abdominal pain who has undergone Elaine-en-Y gastric bypass surgery and has a history of pulmonary embolism who is on Coumadin presents for evaluation of an episode of palpitations and anterior chest pain as well as some tingling in her fingers that started 20 minutes prior to arrival. She does not smoke. She is overweight. She is on Coumadin. She does not have a history of heart disease. She did recently have a port placed as she has difficult IV access but the port was unable to be accessed by the nursing staff. I was able to get a 22-gauge Angiocath into her right upper arm and she was given IV Pepcid and a liter of normal saline. Her EKG done upon arrival is a sinus rhythm/paced rhythm at 80 bpm. Cardiac workup including CBC with differential, comprehensive metabolic profile and coags as well as troponin was ordered. 1 view chest x-ray was ordered and it was reviewed by myself. It shows the MediPort in place with normal-sized heart, no acute pulmonary infiltrate, no thorax or mediastinal widening. She has normal white count and stable hemoglobin. Electrolytes are normal. LFTs are normal. Troponin is less than 4. Her INR is 1.79. She states she takes her Coumadin in the morning and tomorrow is the day that she takes 1-1/2 tablets. She does have follow-up with the Coumadin clinic on . I explained the results of her labs with her. I do not think that giving her aspirin is indicated as her workup is normal and she has had gastric bypass surgery. She has been on the monitor since arriving and has not had any ectopy or other changes in her cardiac rhythm. I explained to her that depending on what position she may have been sitting in she may have been able to feel her pulse or have some brief arrhythmia due to positional changes. She is otherwise stable for discharge. I will not order a delta troponin as the troponin that I was able to obtain was not drawn until she had been here for 2 hours. Medical Records Data Attestation: I reviewed the patient's medical records. Lab Data Attestation: I reviewed the patient's lab results. Labs: Lab Results 12/04/24 Range/Units 23:05 WBC 6.5 (4.0-11.0) 10^3/uL RBC 3.81 L (4.20-5.40) 10^6/uL Hgb 13.0 (12.0-16.0) g/dL Hct 37.6 (36.0-48.0) % MCV 98.7 (81.0-99.0) fL MCH 34.1 H (26.7-34.0) pg MCHC 34.6 (29.9-35.2) g/dL RDW 13.3 (11.0-15.0) % Plt Count 179 (150-450) 10^3/uL MPV 9.4 L (9.5-13.5) fL Neut % (Auto) 62.8 (43.0-75.0) % Lymph % (Auto) 26.1 (20.5-60.0) % [place] % (Auto) 8.0 (1.7-12.0) % Eos % (Auto) 2.3 (0.9-7.0) % Baso % (Auto) 0.6 (0.2-2.0) % Neut # (Auto) 4.1 (1.4-6.5) 10^3/uL Lymph # (Auto) 1.7 (1.2-3.8) 10^3/uL [place] # (Auto) 0.5 (0.3-0.8) 10^3/uL Eos # (Auto) 0.2 (0.0-0.7) 10^3/uL Baso # (Auto) 0.0 (0.0-0.1) 10^3/uL Abs Immat Gran (auto) 0.01 (0.00-0.03) 10^3/uL Imm/Tot Granulo (auto) 0.2 (0.0-0.5) % PT 17.9 H (9.0-11.6) sec INR 1.79 Sodium 140 (136-145) mmol/L Potassium 3.9 (3.5-5.1) mmol/L Chloride 104 (98-107) mmol/L Carbon Dioxide 24.8 (21.0-32.0) mmol/L Anion Gap 15.1 BUN 9.0 (7.0-18.0) mg/dL Creatinine 0.77 (0.55-1.02) mg/dL Est GFR ( Amer) >60 (>=60 mL/min/1.73m^2) Est GFR (Non-Af Amer) >60 (>=60 mL/min/1.73m^2) BUN/Creatinine Ratio 11.7 Glucose 103 (74-106) mg/dL Calcium 9.0 (8.5-10.1) mg/dL Total Bilirubin 0.4 (0.2-1.0) mg/dL AST 20 (15-37) U/L ALT 18 (14-59) U/L Alkaline Phosphatase 64 (46-116) U/L Troponin I High Sens <4.0 L (4.0-51.3) pg/mL Total Protein 6.8 (6.4-8.2) g/dL Albumin 3.3 L (3.4-5.0) g/dL Globulin 3.5 g/dL Albumin/Globulin Ratio 0.9 ECG Data Attestation: I personally reviewed and interpreted this ECG as follows: (Sinus rhythm with pacer spikes at 80 bpm, low voltage, normal axis, no acute ST segment elevation or T wave inversion) Heart Score History: Slightly/Non-Suspicious ECG: Normal Age: <45 years Risk Factors: 1 or 2 Risk Factors Troponin: <Normal Limit Total Heart Score Recommendations & Risks:: 1 Discharge Plan Discharge Chief Complaint: Chest Pain Clinical Impression: Palpitations Patient Disposition: Home, Self-Care Time of Disposition Decision: 23:42 Condition: Good Prescriptions / Home Meds: No Action olanzapine 5 mg tablet 5 mg PO .qd PRN (Reason: hallucinations) venlafaxine 150 mg capsule,extended release 24hr 150 mg PO DAILY benztropine 1 mg tablet 1 mg PO BID mirtazapine 15 mg tablet 15 mg PO .HS metoprolol succinate 25 mg tablet extended release 24 hr 25 mg PO DAILY aripiprazole 30 mg tablet 30 mg PO DAILY Invega Sustenna 234 mg/1.5 mL syringe 234 mg IM Q30D warfarin 5 mg tablet 5 mg PO DAILY gabapentin 400 mg capsule 600 mg PO TID Print Language: French Instructions: Heart Palpitations (ED) Referrals: Sharyn Bradford MD [Primary Care Provider, Family Practice] - 1 week
[2024-12-04 22:49] VITALS: BP 112/77; PULSE 74; O2SAT 98
[2024-12-04] MEDS: 0.9 % SODIUM CHLORIDE 1,000 ML 1000 ML IV (23:10)
[2024-12-04 23:12] LABS: Basophils Percent Auto 0.6 % (0.2-2.0); Eosinophils Absolute Auto 0.2 10^3/uL (0.0-0.7); Eosinophils Percent Auto 2.3 % (0.9-7.0); Hematocrit 37.6 % (36.0-48.0); Immature Granulocytes Abs Auto 0.01 10^3/uL (0.00-0.03); Immature Granulocytes Pct Auto 0.2 % (0.0-0.5); Lymphocytes Absolute Auto 1.7 10^3/uL (1.2-3.8); Lymphocytes Percent Auto 26.1 % (20.5-60.0); Mean Corpuscular HGB Conc 34.6 g/dL (29.9-35.2); Mean Corpuscular Hemoglobin 34.1 pg (26.7-34.0); Mean Corpuscular Volume 98.7 fL (81.0-99.0); Mean Platelet Volume 9.4 fL (9.5-13.5); Monocytes Absolute Auto 0.5 10^3/uL (0.3-0.8); Neutrophils Absolute Auto 4.1 10^3/uL (1.4-6.5); Neutrophils Percent Auto 62.8 % (43.0-75.0); Platelet Count 179 10^3/uL (150-450); Red Blood Count 3.81 10^6/uL (4.20-5.40); Red Cell Distribution Width 13.3 % (11.0-15.0); White Blood Count 6.5 10^3/uL (4.0-11.0)
[2024-12-04] MEDS: FAMOTIDINE/PF 20 MG/2 ML VIAL IV (23:15)
[2024-12-04 23:26] LABS: INR 1.79; Prothrombin Time 17.9 sec (9.0-11.6)
[2024-12-04 23:29] LABS: Alanine Aminotransferase 18 U/L (14-59); Albumin Globulin Ratio 0.9; Albumin Level 3.3 g/dL (3.4-5.0); Alkaline Phosphatase 64 U/L (46-116); Anion Gap 15.1; Aspartate Amino Transferase 20 U/L (15-37); BUN Creatinine Ratio 11.7; Bilirubin Total 0.4 mg/dL (0.2-1.0); Carbon Dioxide 24.8 mmol/L (21.0-32.0); Chloride 104 mmol/L (98-107); Estimated GFR (African America >60 (>=60 mL/min/1.73m^2); Estimated GFR (Non-African Ame >60 (>=60 mL/min/1.73m^2); Globulin 3.5 g/dL; Glucose 103 mg/dL (74-106); Potassium 3.9 mmol/L (3.5-5.1); Sodium 140 mmol/L (136-145); Total Protein 6.8 g/dL (6.4-8.2); Troponin I High Sensitivity <4.0 pg/mL (4.0-51.3)
== END 2024-12-05 00:27 | disposition home or self-care (01) ==
PROVIDERS: Emergency Provider Emergency Medicine; PCP Family Medicine
DX: R00.2 Palpitations (principal); Z79.01 Long term (current) use of anticoagulants; Z86.718 Personal history of other venous thrombosis and embolism; Z98.84 Bariatric surgery status; Z95.0 Presence of cardiac pacemaker; Z90.49 Acquired absence of other specified parts of digestive tract; Z86.711 Personal history of pulmonary embolism
CPT/HCPCS: 36415; 71045; 80053; 84484; 85025; 85610; 93005; 99285; J3490

== ENCOUNTER 2024-12-20 02:36 | Outpatient (RCR) | payer MEDICARE, MEDICAID, SELFPAY | END 2025-01-19 16:59 | disposition home or self-care (01) | LOC: MM 02:36 | PROVIDERS: PCP Family Medicine; Visit Provider Internal Medicine | DX: Z51.81 Encounter for therapeutic drug level monitoring (principal); Z79.01 Long term (current) use of anticoagulants | CPT/HCPCS: 85610; G0463 ==

== ENCOUNTER 2025-01-09 16:01 | Outpatient (OUT) | payer MEDICARE, MEDICAID, SELFPAY ==
[2025-01-09 16:37] LABS: Hematocrit 43.2 % (36.0-48.0); Hemoglobin 14.6 g/dL (12.0-16.0); Immature Granulocytes Abs Auto 0.01 10^3/uL (0.00-0.03); Immature Granulocytes Pct Auto 0.1 % (0.0-0.5); Lymphocytes Absolute Auto 1.8 10^3/uL (1.2-3.8); Mean Corpuscular HGB Conc 33.8 g/dL (29.9-35.2); Mean Corpuscular Hemoglobin 33.3 pg (26.7-34.0); Mean Corpuscular Volume 98.6 fL (81.0-99.0); Platelet Count 177 10^3/uL (150-450); Red Blood Count 4.38 10^6/uL (4.20-5.40); White Blood Count 6.7 10^3/uL (4.0-11.0)
[2025-01-09 16:57] LABS: Anion Gap 13.7; Blood Urea Nitrogen 12.0 mg/dL (7.0-18.0); Calcium 9.4 mg/dL (8.5-10.1); Carbon Dioxide 26.4 mmol/L (21.0-32.0); Chloride 107 mmol/L (98-107); Estimated GFR (African America >60 (>=60 mL/min/1.73m^2); Estimated GFR (Non-African Ame >60 (>=60 mL/min/1.73m^2); Glucose 99 mg/dL (74-106); Potassium 4.1 mmol/L (3.5-5.1); Sodium 143 mmol/L (136-145)
[2025-01-09 17:41] LABS: Iron 72.0 ug/dL (50.0-170.0); Percent Iron Saturation 21.2 %; Total Iron Binding Capacity 340.0 ug/dL (250.0-450.0)
[2025-01-11 04:07] LABS: Vitamin B12 381 pg/mL (232-1245)
== END 2025-01-09 16:02 | disposition home or self-care (01) ==
LOC: LAB 16:02
PROVIDERS: PCP Family Medicine; Visit Provider Internal Medicine Hematology & Oncology
DX: D68.69 Other thrombophilia (principal); I26.99 Other pulmonary embolism without acute cor pulmonale; D64.9 Anemia, unspecified; K90.9 Intestinal malabsorption, unspecified; I82.402 Acute embolism and thrombosis of unspecified deep veins of left lower extremity; D50.9 Iron deficiency anemia, unspecified; D51.9 Vitamin B12 deficiency anemia, unspecified
CPT/HCPCS: 36415; 80048; 82306; 82607; 82728; 83540; 83550; 85025

== ENCOUNTER 2025-01-17 07:17 | Outpatient (RCR) | payer MEDICARE, MEDICAID, SELFPAY ==
[2025-01-17] MEDS: HEPARIN SODIUM (PORCINE) PF LOCK FLUSH 500 UNIT/5 ML SYRINGE IV (09:12)
--- NOTE | 2025-01-17 09:13 | PC.NURSE ---
Patient arrived to infusion center at 905 cleansed chest port area with chlora prep and inserted bradshaw needle. Port flushed well with normal saline and then heparin as ordered. Port de-accessed and covered with 2 x 2 gauze and tape. Patient was discharged at 912. Patient tolerated procedure well.
== END 2025-01-19 23:59 | disposition home or self-care (01) ==
LOC: HEMC 07:17
PROVIDERS: PCP Family Medicine; Visit Provider Internal Medicine Hematology & Oncology
DX: D68.69 Other thrombophilia (principal); I26.99 Other pulmonary embolism without acute cor pulmonale; D64.9 Anemia, unspecified; K90.9 Intestinal malabsorption, unspecified; I82.402 Acute embolism and thrombosis of unspecified deep veins of left lower extremity; D50.9 Iron deficiency anemia, unspecified; D51.9 Vitamin B12 deficiency anemia, unspecified; Z98.84 Bariatric surgery status; Z90.49 Acquired absence of other specified parts of digestive tract; Z96.659 Presence of unspecified artificial knee joint; Z79.01 Long term (current) use of anticoagulants; Z95.0 Presence of cardiac pacemaker
CPT/HCPCS: 96523; G0463; J1642

== ENCOUNTER 2025-01-20 00:39 | Outpatient (RCR) | payer MEDICARE, MEDICAID, SELFPAY | END 2025-02-16 12:49 | disposition home or self-care (01) | LOC: MM 00:39 | PROVIDERS: PCP Family Medicine; Visit Provider Internal Medicine | DX: Z51.81 Encounter for therapeutic drug level monitoring (principal); Z79.01 Long term (current) use of anticoagulants | CPT/HCPCS: 85610; G0463 ==

== ENCOUNTER 2025-02-16 08:55 | Outpatient (RCR) | payer MEDICARE, MEDICAID, SELFPAY ==
[2025-02-16] MEDS: HEPARIN SODIUM (PORCINE) PF LOCK FLUSH 500 UNIT/5 ML SYRINGE IV (09:10)
== END 2025-02-19 23:59 | disposition home or self-care (01) ==
LOC: HEMC 08:55
PROVIDERS: PCP Family Medicine; Visit Provider Internal Medicine Hematology & Oncology
DX: Z51.81 Encounter for therapeutic drug level monitoring (principal); Z79.01 Long term (current) use of anticoagulants; I26.99 Other pulmonary embolism without acute cor pulmonale; D68.69 Other thrombophilia; D64.9 Anemia, unspecified; K90.9 Intestinal malabsorption, unspecified; I82.402 Acute embolism and thrombosis of unspecified deep veins of left lower extremity; D50.9 Iron deficiency anemia, unspecified; D51.9 Vitamin B12 deficiency anemia, unspecified
CPT/HCPCS: 51702; 85610; G0463; J1642

== ENCOUNTER 2025-02-20 03:06 | Outpatient (RCR) | payer MEDICARE, MEDICAID, SELFPAY | END 2025-03-21 15:39 | disposition home or self-care (01) | LOC: MM 03:06 | PROVIDERS: PCP Family Medicine; Visit Provider Internal Medicine | DX: Z51.81 Encounter for therapeutic drug level monitoring (principal); Z79.01 Long term (current) use of anticoagulants | CPT/HCPCS: 85610; G0463 ==

== ENCOUNTER 2025-03-16 08:51 | Outpatient (RCR) | payer MEDICARE, MEDICAID, SELFPAY ==
[2025-03-16 08:55] VITALS: BP 159/89; PULSE 95; TEMP 36.4; O2SAT 94
[2025-03-16] MEDS: HEPARIN SODIUM (PORCINE) PF LOCK FLUSH 500 UNIT/5 ML SYRINGE IV (09:17)
--- NOTE | 2025-03-16 09:20 | PC.NURSE ---
Patient arrived to infusion center ambulating in stable condition to have implanted port flushed with 500 units of heparin. Upper right chest cleansed where implanted port is located. Used 1 inch bradshaw with saline attached and port flushed great. Difficult toget blood return. Attempted again with success thereafter flushed with heparin. Bradshaw needle removed area where port location was wiped with alcohol pad and bandage applied. Patient tolerated procedure and was discharged.
== END 2025-03-21 23:59 | disposition home or self-care (01) ==
LOC: HEMC 08:51
PROVIDERS: PCP Family Medicine; Visit Provider Internal Medicine Hematology & Oncology
DX: I26.99 Other pulmonary embolism without acute cor pulmonale (principal); D68.69 Other thrombophilia; D64.9 Anemia, unspecified; K90.9 Intestinal malabsorption, unspecified; I82.402 Acute embolism and thrombosis of unspecified deep veins of left lower extremity; D50.9 Iron deficiency anemia, unspecified; D51.9 Vitamin B12 deficiency anemia, unspecified
CPT/HCPCS: 51702; G0463; J1642

== ENCOUNTER 2025-03-22 05:23 | Outpatient (RCR) | payer MEDICARE, MEDICAID, SELFPAY | END 2025-04-21 23:59 | disposition home or self-care (01) | LOC: MM 05:23 | PROVIDERS: PCP Family Medicine; Visit Provider Internal Medicine | DX: Z51.81 Encounter for therapeutic drug level monitoring (principal); Z79.01 Long term (current) use of anticoagulants | CPT/HCPCS: 85610; G0463 ==

== ENCOUNTER 2025-04-05 13:23 | Outpatient (OUT) | payer MEDICARE, MEDICAID, SELFPAY ==
--- OUTSIDE RECORDS SUMMARY | 2024-11-01 06:15 | XMS_ITS ---
Author Organization The [facility] in [place] Address [address] [place] [address] Care Team Providers Care Capacity Planning Manager Name Role Phone EMY LEMUS Primary Care Provider UnavailEmy Gonzalez Unavailable [phone] REASON FOR VISIT MD Encounters Encounter Location Date Provider Diagnosis The [facility] Oncology [address] [place] [phone] 11/01/2024 Emy Lemus Plan Of Treatment Next Appt Details Provider Name:Emy Lemus , 04/11/2025 11:15:00 AM, [address] [place] [address], [phone], Provider Name:Emy Lemus , 04/11/2025 11:30:00 AM, [address] [place] [address], [phone], Provider Name:Emy Lemus , 04/13/2025 09:00:00 AM, [address] [place] [address], [phone], Provider Name:Emy Lemus , 05/11/2025 09:00:00 AM, [address] [place] [address], [phone], Provider Name:Emy Lemus , 06/08/2025 09:00:00 AM, [address] [place] [address], [phone], Progress Notes * Maricarmen ANDERSONDOB: 3 (44 yo F)Acc No.[id number]:11/01/2024 UNLOCKED PROGRESS NOTE Progress Notes Patient: Maricarmen SILVA Provider: Harpreet Lemus M.D. :1980 A ge:44 Y S ex:Female Date:11/01/2024 Address:[address] [place], [place] [phone] Pcp:EMY LEMUS Subjective: * Chief Complaints: * 1 . MD. * Medical History: Objective: * Vitals: Assessment: Plan: * Treatment: * * Electronic signature of Treasure Lemus MD, [id number] on 04/05/2025 at 01:27 PM EDT Sign off status: Pending Visit Status: P EN (Pending) * Provider: Harpreet Lemus M.D. Date: 0 11/01/2024 Generated for Suhas simmons/Dexter/eTransmitting on: 1 01:27 PM EDT
--- OUTSIDE RECORDS SUMMARY | 2025-01-10 06:30 | XMS_ITS ---
Author Organization The [facility] in [place] Address [address] [place] [address] Care Team Providers Care Assistant Softball Coach Name Role Phone EMY LEMUS Primary Care Provider UnavailEmy Gonzalez Unavailable [phone] REASON FOR VISIT MD Encounters Encounter Location Date Provider Diagnosis [facility] On[facility] [address] [place] [phone] 01/10/2025 Emy Lemus Plan Of Treatment Next Appt Details Provider Name:Emy Lemus , 04/11/2025 11:15:00 AM, [address] [place] [address], [phone], Provider Name:Emy Lemus , 04/11/2025 11:30:00 AM, [address] [place] [address], [phone], Provider Name:Emy Lemus , 04/13/2025 09:00:00 AM, [address] [place] [address], [phone], Provider Name:Emy Lemus , 05/11/2025 09:00:00 AM, [address] [place] [address], [phone], Provider Name:Emy Lemus , 06/08/2025 09:00:00 AM, [address] [place] [address], [phone], Progress Notes * Maricarmen ANDERSONDOB: 3 (44 yo F)Acc No.[id number]:01/10/2025 UNLOCKED PROGRESS NOTE Progress Notes Patient: Maricarmen SILVA Provider: Harpreet Lemus M.D. :1980 A ge:44 Y S ex:Female Date:01/10/2025 Address:[address] [place], [place] [phone] Pcp:EMY LEMUS Subjective: * Chief Complaints: * 1 . MD. * Medical History: Objective: * Vitals: Assessment: Plan: * Treatment: * * Electronic signature of Treasure Lemus MD, [id number] on 04/05/2025 at 01:27 PM EDT Sign off status: Pending Visit Status: P EN (Pending) * Provider: Harpreet Lemus M.D. Date: 0 01/10/2025 Generated for Wendyi iris/Dexter/eTransmitting on: 1 01:27 PM EDT
--- OUTSIDE RECORDS SUMMARY | 2025-01-17 05:00 | XMS_ITS ---
Author Organization The [facility] in [place] Address [address] [place] [address] Care Team Providers Care Gaming Cashier Name Role Phone EMY LEMUS Primary Care Provider UnavailEmy Gonzalez Unavailable [phone] REASON FOR VISIT CL.5 Encounters Encounter Location Date Provider Diagnosis [facility] [address] [place] [phone] 01/17/2025 Emy Lemus Plan Of Treatment Next Appt Details Provider Name:Emy Lemus , 04/11/2025 11:15:00 AM, [address] [place] [address], [phone], Provider Name:Emy Lemus , 04/11/2025 11:30:00 AM, [address] [place] [address], [phone], Provider Name:Emy Lemus , 04/13/2025 09:00:00 AM, [address] [place] [address], [phone], Provider Name:Emy Lemus , 05/11/2025 09:00:00 AM, [address] [place] [address], [phone], Provider Name:Emy Lemus , 06/08/2025 09:00:00 AM, [address] [place] [address], [phone], Progress Notes * Maricarmen ANDERSONDOB: 3 (44 yo F)Acc No.[id number]:01/17/2025 UNLOCKED PROGRESS NOTE Progress Note Patient: Maricarmen SILVA Provider: Harpreet Lemus M.D. :1980 A ge:44 Y S ex:Female Date:01/17/2025 Address:[address] [place], [place] [phone] Pcp:EMY LEMUS Subjective: * Chief Complaints: * 1 . CL.5. * Medical History: Objective: * Vitals: Assessment: Plan: * Treatment: * * Electronic signature of Treasure Lemus MD, [id number] on 04/05/2025 at 01:29 PM EDT Sign off status: Pending Visit Status: P EN (Pending) * Provider: Harpreet Lemus M.D. Date: 0 01/17/2025 Generated for Wendyi iris/Dexter/eTransmitting on: 1 01:29 PM EDT
--- OUTSIDE RECORDS SUMMARY | 2025-02-16 05:00 | XMS_ITS ---
Author Organization The [facility] in [place] Address [address] [place] [address] Care Team Providers Care Family Psychologist Name Role Phone EMY LEMUS Primary Care Provider UnavailEmy Gonzalez Unavailable [phone] REASON FOR VISIT CL.5 Encounters Encounter Location Date Provider Diagnosis The [facility] Oncology [address] [place] [phone] 02/16/2025 Emy Lemus Plan Of Treatment Next Appt Details Provider Name:Emy Lemus , 04/11/2025 11:15:00 AM, [address] [place] [address], [phone], Provider Name:Emy Lemus , 04/11/2025 11:30:00 AM, [address] [place] [address], [phone], Provider Name:Emy Lemus , 04/13/2025 09:00:00 AM, [address] [place] [address], [phone], Provider Name:Emy Lemus , 05/11/2025 09:00:00 AM, [address] [place] [address], [phone], Provider Name:Emy Lemus , 06/08/2025 09:00:00 AM, [address] [place] [address], [phone], Progress Notes * Maricarmen ANDERSONDOB: 3 (44 yo F)Acc No.[id number]:02/16/2025 UNLOCKED PROGRESS NOTE Progress Note Patient: Maricarmen SILVA Provider: Harpreet Lemus M.D. :1980 A ge:44 Y S ex:Female Date:02/16/2025 Address:[address] [place], [place] [phone] Pcp:EMY LEMUS Subjective: * Chief Complaints: * 1 . CL.5. * Medical History: Objective: * Vitals: Assessment: Plan: * Treatment: * * Electronic signature of Treasure Lemus MD, [id number] on 04/05/2025 at 01:27 PM EDT Sign off status: Pending Visit Status: P EN (Pending) * Provider: Harpreet Lemus M.D. Date: 0 02/16/2025 Generated for Wendyi iris/Dexter/eTransmitting on: 1 01:27 PM EDT
--- OUTSIDE RECORDS SUMMARY | 2025-03-16 05:00 | XMS_ITS ---
Author Organization The [facility] in [place] Address [address] [place] [address] Care Team Providers Care Director Equipment Name Role Phone EMY LEMUS Primary Care Provider UnavailEmy Gonzalez Unavailable [phone] REASON FOR VISIT CL.5 Encounters Encounter Location Date Provider Diagnosis The [facility] Oncology [address] [place] [address] 03/16/2025 Emy Lemus Plan Of Treatment Next Appt Details Provider Name:Emy Lemus , 04/11/2025 11:15:00 AM, [address] [place] [address], [phone], Provider Name:Emy Lemus , 04/11/2025 11:30:00 AM, [address] [place] [address], [phone], Provider Name:Emy Lemus , 04/13/2025 09:00:00 AM, [address] [place] [address], [phone], Provider Name:Emy Lemus , 05/11/2025 09:00:00 AM, [address] [place] [address], [phone], Provider Name:Emy Lemus , 06/08/2025 09:00:00 AM, [address] [place] [address], [phone], Progress Notes * Maricarmen ANDERSONDOB: 3 (44 yo F)Acc No.[id number]:03/16/2025 UNLOCKED PROGRESS NOTE Progress Note Patient: Maricarmen SILVA Provider: Harpreet Lemus M.D. :1980 A ge:44 Y S ex:Female Date:03/16/2025 Address:[address] [place], [place] [phone] Pcp:EMY LEMUS Subjective: * Chief Complaints: * 1 . CL.5. * Medical History: Objective: * Vitals: Assessment: Plan: * Treatment: * * Electronic signature of Treasure Lemus MD, [id number] on 04/05/2025 at 01:27 PM EDT Sign off status: Pending Visit Status: P EN (Pending) * Provider: Harpreet Lemus M.D. Date: 0 03/16/2025 Generated for Wendyi iris/Dexter/eTransmitting on: 1 01:27 PM EDT
--- OUTSIDE RECORDS SUMMARY | 2025-04-05 13:27 | XMS_ITS | Encounter Summary ---
Author Organization [facility] Address [address] [place] [address] Care Team Providers Care Icing And Glaze Maker Name Role Phone Sharyn Bradford MD Primary Care Provider [phone] Source Comments In the event this information is protected by the Federal Confidentiality of Alcohol and Drug AbusePatient Records regulations: The Federal rules restrict any use of the information to criminally investigate or prosecute any alcohol or drug abuse patient.[facility] Encounter Details Date Type Department Care Team (Late st Contact Info) Description 03/24/2019 Patient Msg Medical Records [address] [place] [address] Provider, Ccf Prescribed Patient Education Video(s) Social [...] No 03/13/2019 3:57 PM EDT ShiraMiguelangel harrington, DUANE.DURABLE MEDICAL EQUIPMENT TECHNICIAN * Are you blind or do you have serious difficulty seeing, even when wearing glasses? Answer Date of Assessment Author No 03/13/2019 3:57 PM EDT ShiraMiguelangel harrington, DUANE.DURABLE MEDICAL EQUIPMENT TECHNICIAN * Do you have serious difficulty walking or climbing stairs? Answer Date of Assessment Author No 03/13/2019 3:57 PM EDT ShiraMiguelangel harrington, SPOOL HAULER.DURABLE MEDICAL EQUIPMENT TECHNICIAN * Do you have difficulty dressing or bathing? Answer Date of Assessment Author No 03/13/2019 3:57 PM EDT ShiraMiguelangel, DUANE.DURABLE MEDICAL EQUIPMENT TECHNICIAN * Because of a physical, mental, or emotional condition, do you have difficulty doing errands alone such as visiting a doctor's office or shopping? Answer Date of Assessment Author No 03/13/2019 3:57 PM EDT Miguelangel Silva APRN.DURABLE MEDICAL EQUIPMENT TECHNICIAN documented as of this encounter Mental Status * Because of a physical, mental, or emotional condition, do you have serious difficulty concentrating, remembering, or making decisions? Answer Entry Date Author No 03/13/2019 3:57 PM EDT Miguelangel Silva, SPOOL HAULER.DURABLE MEDICAL EQUIPMENT TECHNICIAN documented in this encounter Plan of Treatment [...] documented as of this encounter Care Teams Icing And Glaze Maker Relationship Specialty Start Date End Date Sharyn Bradford MD [address] [place] [address] PCP - General 10/18/13 documented as of this encounter
--- OUTSIDE RECORDS SUMMARY | 2025-04-05 13:27 | XMS_ITS | Encounter Summary ---
Author Organization [facility] Address [address] [place] [address] Care Team Providers Care Barrel Ribs Solderer Name Role Phone Sharyn Bradford MD Primary Care Provider [phone] Source Comments In the event this information is protected by the Federal Confidentiality of Alcohol and Drug AbusePatient Records regulations: The Federal rules restrict any use of the information to criminally investigate or prosecute any alcohol or drug abuse patient.[facility] Encounter Details Date Type Department Care Team (Late st Contact Info) Description 04/05/2018 Get Medical Advice [facility]ology [facility] [address] [phone] Dennis Gibson DO [facility] [address] [place] [address] RE: Test Result Question Social History Tobacco [...] 8:13 PM EDT Sexual Orientation Straight 10/18/2020 8 :13 PM EDT documented as of this encounter [...] documented as of this encounter Care Teams Barrel Ribs Solderer Relationship Specialty Start Date End Date Sharyn Bradford MD [address] [place] [address] PCP - General 10/18/13 documented as of this encounter
--- OUTSIDE RECORDS SUMMARY | 2025-04-05 13:27 | XMS_ITS | Encounter Summary ---
Author Organization [facility] Address [address] [place] [address] Care Team Providers Care Receivable Manager Name Role Phone Sharyn Bradford MD Primary Care Provider [phone] Source Comments In the event this information is protected by the Federal Confidentiality of Alcohol and Drug AbusePatient Records regulations: The Federal rules restrict any use of the information to criminally investigate or prosecute any alcohol or drug abuse patient.[facility] Encounter Details Date Type Department Care Team (Late st Contact Info) Description 05/04/2018 Get Medical Advice [facility] [address] [phone] Dennis Gibson [facility] [address] [place] [address] RE: Upcoming Appointment Question Social History Tobacco [...] documented as of this encounter Care Teams Receivable Manager Relationship Specialty Start Date End Date Sharyn Bradford MD [address] [place] [address] PCP - General 4/29/14 documented as of this encounter
--- OUTSIDE RECORDS SUMMARY | 2025-04-05 13:27 | XMS_ITS | Encounter Summary ---
Author Organization [facility] Address [address] [place] [address] Care Team Providers Care Glaze Supervisor Name Role Phone Sharyn Bradford MD Primary Care Provider [phone] Source Comments In the event this information is protected by the Federal Confidentiality of Alcohol and Drug AbusePatient Records regulations: The Federal rules restrict any use of the information to criminally investigate or prosecute any alcohol or drug abuse patient.[facility] Encounter Details Date Type Department Care Team (Late st Contact Info) Description 04/06/2018 Patient Msg Gastroenterology [address] [address] Provider, Ccf Re: your my chart message [...] Author No 08/02/2014 1:39 PM Nissa Pollard COMMUNICATIONS SUPERINTENDENT * Do you have serious difficulty walking or climbing stairs? Answer Date of Assessment Author No 08/02/2014 1:39 PM Nissa Pollard COMMUNICATIONS SUPERINTENDENT * Do you have difficulty dressing or bathing? Answer Date of Assessment Author No 08/02/2014 1:39 PM Nissa Pollard, COMMUNICATIONS SUPERINTENDENT * Because of a physical, mental, or [...] documented as of this encounter Care Teams Glaze Supervisor Relationship Specialty Start Date End Date Sharyn Bradford MD [address] [place] [address] PCP - General 10/18/13 documented as of this encounter
--- OUTSIDE RECORDS SUMMARY | 2025-04-05 13:27 | XMS_ITS | Encounter Summary ---
Author Organization [facility] Address [address] [place] [address] Care Team Providers Care Lining Machine Tender Name Role Phone Sharyn Bradford MD Primary Care Provider [phone] Source Comments In the event this information is protected by the Federal Confidentiality of Alcohol and Drug AbusePatient Records regulations: The Federal rules restrict any use of the information to criminally investigate or prosecute any alcohol or drug abuse patient.[facility] Encounter Details Date Type Department Care Team (Late st Contact Info) Description 03/23/2019 Patient Msg General Surgery [facility] [address] [phone] Provider, Ccf Gut Rehab appointment Social History [...] No 03/13/2019 3:57 PM EDT ShiraMiguelangel harrington APRN.SUPERVISOR ASSEMBLY * Are you blind or do you have serious difficulty seeing, even when wearing glasses? Answer Date of Assessment Author No 03/13/2019 3:57 PM EDT ShiraMiguelangel harrington APRN.SUPERVISOR ASSEMBLY * Do you have serious difficulty walking or climbing stairs? Answer Date of Assessment Author No 03/13/2019 3:57 PM EDT ShiraMiguelangel harrington APRN.SUPERVISOR ASSEMBLY * Do you have difficulty dressing or bathing? Answer Date of Assessment Author No 03/13/2019 3:57 PM EDT ShiraMiguelangel harrington APRN.SUPERVISOR ASSEMBLY * Because of a physical, mental, or emotional condition, do you have difficulty doing errands alone such as visiting a doctor's office or shopping? Answer Date of Assessment Author No 03/13/2019 3:57 PM EDT Miguelangel Silva APRN.SUPERVISOR ASSEMBLY documented as of this encounter Mental Status * Because of a physical, mental, or emotional condition, do you have serious difficulty concentrating, remembering, or making decisions? Answer Entry Date Author No 03/13/2019 3:57 PM EDT Miguelangel Silva APRN.SUPERVISOR ASSEMBLY documented in this encounter Plan of Treatment [...] documented as of this encounter Care Teams Lining Machine Tender Relationship Specialty Start Date End Date Sharyn Bradford MD [address] [place] [address] PCP - General 10/18/13 documented as of this encounter
--- OUTSIDE RECORDS SUMMARY | 2025-04-05 13:28 | XMS_ITS | Clinical Summary ---
Author Organization [facility] Address [address] [place] [address] Care Team Providers Care Yard Cleaner Name Role Phone Unavailable Primary Care Provider [...]
--- OUTSIDE RECORDS SUMMARY | 2025-04-05 13:28 | XMS_ITS | Encounter Summary ---
Author Organization [facility] Address [address] [place] [address] Care Team Providers Care Airline Operations Agent Name Role Phone Sharyn Bradford MD Primary Care Provider [phone] Source Comments In the event this information is protected by the Federal Confidentiality of Alcohol and Drug AbusePatient Records regulations: The Federal rules restrict any use of the information to criminally investigate or prosecute any alcohol or drug abuse patient.[facility] Encounter Details Date Type Department Care Team (Late st Contact Info) Description 11/18/2018 Patient [place] [address] Betty Last, RN Instructions for procedure Social [...] documented as of this encounter Care Teams Airline Operations Agent Relationship Specialty Start Date End Date Sharyn Bradford MD [address] [place] [address] PCP - General 10/18/13 documented as of this encounter
--- OUTSIDE RECORDS SUMMARY | 2025-04-05 13:28 | XMS_ITS | Encounter Summary ---
Author Organization [facility] Address [address] [place] [address] Care Team Providers Care Sales Representative Gas Service Name Role Phone Sharyn Bradford MD Primary Care Provider [phone] Source Comments In the event this information is protected by the Federal Confidentiality of Alcohol and Drug AbusePatient Records regulations: The Federal rules restrict any use of the information to criminally investigate or prosecute any alcohol or drug abuse patient.[facility] Encounter Details Date Type Department Care Team (Late st Contact Info) Description 01/26/2019 Patient Msg Pre Anesthesia [address] [place], [place] [phone] Provider, Ccf Please read and call back [...] No 12/27/2018 6:21 PM EDT Alex Martinez APRN.MANAGER WELDING * Are you blind or do you have serious difficulty seeing, even when wearing glasses? Answer Date of Assessment Author No 12/27/2018 6:21 PM EDT Alex Martinez APRN.MANAGER WELDING * Do you have serious difficulty walking or climbing stairs? Answer Date of Assessment Author No 12/27/2018 6:21 PM EDT Alex Martinez APRN.MANAGER WELDING * Do you have difficulty dressing or bathing? Answer Date of Assessment Author No 12/27/2018 6:21 PM EDT Alex Martinez APRN.MANAGER WELDING * Because of a physical, mental, or emotional condition, do you have difficulty doing errands alone such as visiting a doctor's office or shopping? Answer Date of Assessment Author No 12/27/2018 6:21 PM EDT Alex Martinez APRN.MANAGER WELDING documented as of this encounter Mental Status * Because of a physical, mental, or emotional condition, do you have serious difficulty concentrating, remembering, or making decisions? Answer Entry Date Author No 12/27/2018 6:21 PM EDT Alex Martinez APRN.MANAGER WELDING documented in this encounter Plan of Treatment [...] documented as of this encounter Care Teams Sales Representative Gas Service Relationship Specialty Start Date End Date Sharyn Bradford MD [address] [place] [address] PCP - General 10/18/13 documented as of this encounter
--- OUTSIDE RECORDS SUMMARY | 2025-04-05 13:28 | XMS_ITS | Encounter Summary ---
Author Organization [facility] Address [address] [place] [address] Care Team Providers Care Orthotic And Prosthetic Technician Name Role Phone Sharyn Bradford MD Primary Care Provider [phone] Source Comments In the event this information is protected by the Federal Confidentiality of Alcohol and Drug AbusePatient Records regulations: The Federal rules restrict any use of the information to criminally investigate or prosecute any alcohol or drug abuse patient.[facility] Encounter Details Date Type Department Care Team (Late st Contact Info) Description 03/24/2019 Patient Msg Medical Records [address] [place] [address] Provider, Ccf Prescribed Patient Education Video(s) Social [...] No 03/13/2019 3:57 PM EDT ShiraMiguelangel harrington, DUANE.DISABILITY AIDE * Are you blind or do you have serious difficulty seeing, even when wearing glasses? Answer Date of Assessment Author No 03/13/2019 3:57 PM EDT ShiraMiguelangel harrington, DUANE.DISABILITY AIDE * Do you have serious difficulty walking or climbing stairs? Answer Date of Assessment Author No 03/13/2019 3:57 PM EDT ShiraMiguelangel harrington, HOT WOUND SPRING PRODUCTION SUPERVISOR.DISABILITY AIDE * Do you have difficulty dressing or bathing? Answer Date of Assessment Author No 03/13/2019 3:57 PM EDT ShiraMiguelangel, DUANE.DISABILITY AIDE * Because of a physical, mental, or emotional condition, do you have difficulty doing errands alone such as visiting a doctor's office or shopping? Answer Date of Assessment Author No 03/13/2019 3:57 PM EDT Miguelangel Silva APRN.DISABILITY AIDE documented as of this encounter Mental Status * Because of a physical, mental, or emotional condition, do you have serious difficulty concentrating, remembering, or making decisions? Answer Entry Date Author No 03/13/2019 3:57 PM EDT Miguelangel Silva, HOT WOUND SPRING PRODUCTION SUPERVISOR.DISABILITY AIDE documented in this encounter Plan of Treatment [...] documented as of this encounter Care Teams Orthotic And Prosthetic Technician Relationship Specialty Start Date End Date Sharyn Bradford MD [address] [place] [address] PCP - General 10/18/13 documented as of this encounter
--- OUTSIDE RECORDS SUMMARY | 2025-04-05 13:28 | XMS_ITS | Encounter Summary ---
Author Organization [facility] Address [address] [place] [address] Care Team Providers Care Veneer Glue Jointer Feedback Name Role Phone Sharyn Bradford MD Primary Care Provider [phone] Source Comments In the event this information is protected by the Federal Confidentiality of Alcohol and Drug AbusePatient Records regulations: The Federal rules restrict any use of the information to criminally investigate or prosecute any alcohol or drug abuse patient.[facility] Encounter Details Date Type Department Care Team (Late st Contact Info) Description 06/05/2020 Get Medical Advice General Surgery [facility] [address] [place] [address] Anshu Cheney MD [address] [place] [address] Test Result Question Social History [...] N ot on file 05/26/2020 Data from: https://www.neighborhoodatlas.medicine.[facility].edu/. Last address used for calculation Not [...] documented as of this encounter Care Teams Veneer Glue Jointer Feedback Relationship Specialty Start Date End Date Sharyn Bradford MD [address] [place] [address] PCP - General 10/18/13 documented as of this encounter
--- OUTSIDE RECORDS SUMMARY | 2025-04-05 13:28 | XMS_ITS | Encounter Summary ---
Author Organization [facility] Address [address] [place] [address] Care Team Providers Care Clerical Production Worker Name Role Phone Sharyn Bradford MD Primary Care Provider [phone] Source Comments In the event this information is protected by the Federal Confidentiality of Alcohol and Drug AbusePatient Records regulations: The Federal rules restrict any use of the information to criminally investigate or prosecute any alcohol or drug abuse patient.[facility] Encounter Details Date Type Department Care Team (Late st Contact Info) Description 12/22/2018 Patient Msg Medical Records [address] [place] [address] Provider, Ccf Prescribed Patient Education Video(s) Social [...] documented as of this encounter Care Teams Clerical Production Worker Relationship Specialty Start Date End Date Sharyn Bradford MD [address] [place] [address] PCP - General 10/18/13 documented as of this encounter
--- OUTSIDE RECORDS SUMMARY | 2025-04-05 13:28 | XMS_ITS | Encounter Summary ---
Author Organization [facility] Address [address] [place] [address] Care Team Providers Care Mobile Home Installer Name Role Phone Sharyn Bradford MD Primary Care Provider [phone] Source Comments In the event this information is protected by the Federal Confidentiality of Alcohol and Drug AbusePatient Records regulations: The Federal rules restrict any use of the information to criminally investigate or prosecute any alcohol or drug abuse patient.[facility] Encounter Details Date Type Department Care Team (Late st Contact Info) Description 11/17/2018 Patient Msg General Surgery [facility] [address] [place] [id number] Roxie Sanchez MA SKETCH ARTIST/DIETITIO N APPT Social History Tobacco Use Types [...] documented as of this encounter Care Teams Mobile Home Installer Relationship Specialty Start Date End Date Sharyn Bradford MD [address] [place] [phone] PCP - General 10/18/13 documented as of this encounter
--- OUTSIDE RECORDS SUMMARY | 2025-04-05 13:28 | XMS_ITS | Clinical Summary ---
Author Organization [facility] Address [address] [place] [address] 140[address] Care Team Providers Care Surgical Instrument Repair Specialist Name Role Phone Sharyn Bradford MD Primary Care Provider [phone] Allergies Active Allergy Reactions Criticality Noted Date [...] consulted as well, they recommended IUD for terminal carman management and If becomes hemodynamically unstable or [...] several OSH ED [facility]G work up Continues [...] Placed on Cipro and [facility] and had a negative culture, antibiotics were stopped - She had an [facility]/EEG [facility] - negative - Continues symptoms- confusion, [...] N ot on file 05/26/2020 Data from: https://www.neighborhoodatlas.medicine.[facility].edu/. Last address used for calculation Not [...] of 3 - 19+ 3-dose series) 2001 HPV Vaccine (1 - 3-dose SCDM series) 2009 Cervical Cancer Screening 2016 2013 Mammogram Screening 2022 Covid-19 Vaccine ( - 2024-2 6 season) 2025 Influenza Vaccine (#1) 2025 0, 08/29/2019, 04/10/2019, Additional history exists Medical Devices Implanted Type Area Steam Shovel Runner Device Identifier Shelf Expiration Date Model / Serial / Lot St Nini [id number]/46 Implanted:Qty: 1 on 04/11/[address] NINI 8TC / / St Nini [id number]/52 Implanted:Qty: 1 on 04/11/[address] NINI 8TC / / St Nini Assurity Mri [id number] Implanted:Qty: 1 on 04/11/[address] NINI [id number] / / [id number] Assurity [id number] Implanted:04/11 (Quantity not on file) Pacemaker ST NINI 2272 Assurity MRI / [id number] / Tray Port-A-Cath Ii 7.8fr 2.6mm 1.6mm Polysulfone Titanium Polyurethane 76 - [id number] Implanted:07/22 at [facility] (Quantity not on file) Port Right: Chest Wall [facility] [employer] 05/25/2022 21-4471-24 / / [id number] Corflo Feeding Tube 10f 60cm Implanted:Qty: 1 on 08/17/2018 at [facility] Tube Right: Nose [employer] 05/22/2023 [id number] / / [id number] Kit Ponsky 20fr Silicone Peg Pull Deluxe Kit Non Safety Sterile - [id number] Implanted:01/31 at [facility] (Quantity not on file) Tube Left: Abdomen BARD [employer]HER[employer] 03/19/2020 [id number] / / [id number] Tube Claudio Secur-Migue 20fr Standard J Silicone Jejunostomy Trimmable Distal - [id number] Implanted:04/20 at [facility] (Quantity not on file) Tube Left: Abdomen [facility] 10/21/2019 0200-20 / / [id number] Tube Claudio Secur-Migue 18fr Standard Silicone Natural Rubber Jejunostomy - [id number] Implanted:07/11 at [facility] (Quantity not on file) Tube Left: Abdomen [facility] 10/20/2020 0200-18 / / [id number] Kit Endovive 20fr Xylocaine Silicone Peg Pull Method Ampule Trocar Cannula - [id number] Implanted:10/24 at [facility] (Quantity not on file) Tube N/A: Abdomen [facility] 12/19/2020 6646 / / [id number] [place] [address] MEDICARE Member Subscriber Plan / Payer (Ef fective 2020-Present) Name:Maricarmen Tran Member ID:[id number] Relation to Subscriber:Self Name:Maricarmen Tran Subscriber ID:[id number] Payer ID:Not on file Group ID:Not on file Type:Medicare Address: [facility] [place] [id number] MEDICAID [place] Advance Directives * Full Code [...] Code Order Discussed With: Patient Care Teams Surgical Instrument Repair Specialist Relationship Specialty Start Date End Date Sharyn Bradford MD [address] [place] [address] PCP - General 10/18/13
--- OUTSIDE RECORDS SUMMARY | 2025-04-05 13:28 | XMS_ITS | Encounter Summary ---
Author Organization [facility] Address [address] [place] [address] Care Team Providers Care Calciner Feeder Name Role Phone Sharyn Bradford MD Primary Care Provider [phone] Source Comments In the event this information is protected by the Federal Confidentiality of Alcohol and Drug AbusePatient Records regulations: The Federal rules restrict any use of the information to criminally investigate or prosecute any alcohol or drug abuse patient.[facility] Encounter Details Date Type Department Care Team (Late st Contact Info) Description 12/15/2018 Patient Msg [facility] [address] [place], [place] [phone] Uyen Suazo, RD [address] [place] [phone] RE: Appointment Cancellation Request Social History Tobacco [...] documented as of this encounter Care Teams Calciner Feeder Relationship Specialty Start Date End Date Sharyn Bradford MD [address] [place] [address] PCP - General 10/18/13 documented as of this encounter
--- OUTSIDE RECORDS SUMMARY | 2025-04-05 13:28 | XMS_ITS | Encounter Summary ---
Author Organization [facility] Address [address] [place] [address] Care Team Providers Care Body Rolling Machine Tender Name Role Phone Sharyn Bradford MD Primary Care Provider [phone] Source Comments In the event this information is protected by the Federal Confidentiality of Alcohol and Drug AbusePatient Records regulations: The Federal rules restrict any use of the information to criminally investigate or prosecute any alcohol or drug abuse patient.[facility] Encounter Details Date Type Department Care Team (Late st Contact Info) Description 08/06/2018 Get Medical Advice Gastroenterology [facility] [address] [place] [id number] Dennis Gibson DO [facility] [address] [place] [address] RE: Non-Urgent Medical Question Social History Tobacco [...] documented as of this encounter Care Teams Body Rolling Machine Tender Relationship Specialty Start Date End Date Sharyn Bradford MD [address] [place] [address] PCP - General 10/18/13 documented as of this encounter
--- OUTSIDE RECORDS SUMMARY | 2025-04-05 13:28 | XMS_ITS | Encounter Summary ---
Author Organization [facility] Address [address] [place] [address] Care Team Providers Care Talent Development Consultant Name Role Phone Sharyn Bradford MD Primary Care Provider [phone] Source Comments In the event this information is protected by the Federal Confidentiality of Alcohol and Drug AbusePatient Records regulations: The Federal rules restrict any use of the information to criminally investigate or prosecute any alcohol or drug abuse patient.[facility] Encounter Details Date Type Department Care Team (Late st Contact Info) Description 07/20/2018 Patient Msg Pre Anesthesia [address] [place] [address] Provider, Ccf pre op instructions Social History [...] Assessment Author No 08/02/2014 1:39 PM SID PulaskiNissa harmon LPN * Are you blind or do you have serious difficulty seeing, even when wearing glasses? Answer Date of Assessment Author No 08/02/2014 1:39 PM Nissa Pollard LPN * Do you have serious difficulty walking or climbing stairs? Answer Date of Assessment Author No 08/02/2014 1:39 PM Nissa Pollard GAME PRESERVE MANAGER * Do you have difficulty dressing or bathing? Answer Date of Assessment Author No 08/02/2014 1:39 PM Nissa Pollard GAME PRESERVE MANAGER * Because of a physical, mental, [...] Date Author No 08/02/2014 1:39 PM SID PulaskiNissa harmon LPN documented in this encounter Plan [...] documented as of this encounter Care Teams Talent Development Consultant Relationship Specialty Start Date End Date Sharyn Bradford MD [address] [place] [phone] PCP - General 10/18/13 documented as of this encounter
--- OUTSIDE RECORDS SUMMARY | 2025-04-05 13:28 | XMS_ITS | Clinical Summary ---
Author Organization [facility] Address [address] [facility], [address] [place] [address] Care Team Providers Care Automobile Mechanic Motor Name Role Phone Sharyn Bradford MD Primary Care Provider [phone] Allergies Active Allergy Reactions Criticality Noted Date [...] drink = 0.6 oz pur e alcohol) [facility] Utilities Answer Date Recorded In the past 12 months has e [employer], [employer], oil, or water [employer] threatened to shut off services in your [...] or ex-partner? No 10/29/2023 Social Connection and Isolation Panel Answer Date Recorded In a typical week, how many times do you talk on the phone with family, friends, or neighbors? More than three times a week 10/29/2023 How often do you get togethe r with friends or relatives? More than three times a week 10/29/2023 How often do you attend chur or yazdanism services? More than 4 times per year 10/29/2023 Do you belong to any clubs o r organizations such as yarsani groups, unions, fraternal or athletic groups, or [...] Recorded Patient Health Questionnaire-2 Score 0 10/29/2023 [facility] - Occupational [...] place to sleep or slept in a senior care (including now)? No 10/29/2023 Food Insecurity Answer [...] 2012 Breast cancer screen 2022 Lipids 2022 Annual Wellness Visit (Medicare Advantage) 06/22/2024 Flu vaccine (#1) 01/20/2025 05/27/2020, 04/10/2019 COVID-19 Vaccine ( - 2023-2 5 season) 2025 HPV vaccine (No Doses Required) Completed Hepatitis A vaccine Aged Out No longe [...] patient's age to complete this topic Insurance [facility] [employer] MEDICARE MEDICAID [place] [address] [place] [address] [facility] AETNA MEDICARE Advance Directives * Full Code (Latest Code Status on File) Date Activated Date Inactivated Comments 10/29/2023 10:29 AM 10/31/2023 5:25 PM Care Teams Automobile Mechanic Motor Relationship Specialty Start Date End Date Sharyn Bradford MD [address] [place] [address] PCP - General Family Medicine 10/30/23
--- OUTSIDE RECORDS SUMMARY | 2025-04-05 13:28 | XMS_ITS | Encounter Summary ---
Author Organization [facility] Address [address] [place] [address] Care Team Providers Care Escrow Secretary Name Role Phone Sharyn Bradford MD Primary Care Provider [phone] Source Comments In the event this information is protected by the Federal Confidentiality of Alcohol and Drug AbusePatient Records regulations: The Federal rules restrict any use of the information to criminally investigate or prosecute any alcohol or drug abuse patient.[facility] Encounter Details Date Type Department Care Team (Late st Contact Info) Description 11/05/2020 Patient Msg General Surgery [facility] [address] [place] [address] Provider, Ccf RE:schedule Social History Tobacco Use [...] N ot on file 05/26/2020 Data from: https://www.neighborhoodatlas.medicine.[facility].edu/. Last address used for calculation [...] documented as of this encounter Care Teams Escrow Secretary Relationship Specialty Start Date End Date Sharyn Bradford MD [address] [place] [phone] PCP - General 10/18/13 documented as of this encounter
--- OUTSIDE RECORDS SUMMARY | 2025-04-05 13:28 | XMS_ITS | Encounter Summary ---
Author Organization [facility] Address [address] [place] [address] Care Team Providers Care Cook'S Assistant Name Role Phone Sharyn Bradford MD Primary Care Provider [phone] Source Comments In the event this information is protected by the Federal Confidentiality of Alcohol and Drug AbusePatient Records regulations: The Federal rules restrict any use of the information to criminally investigate or prosecute any alcohol or drug abuse patient.[facility] Encounter Details Date Type Department Care Team (Late st Contact Info) Description 04/12/2019 Get Medical Advice General Surgery [facility] [address] [place] [address] Anshu Cheney MD [address] [place] [address] Non-Urgent Medical Question Social History [...] documented as of this encounter Care Teams Cook'S Assistant Relationship Specialty Start Date End Date Sharyn Bradford MD [address] [place] [address] PCP - General 10/18/13 documented as of this encounter
--- OUTSIDE RECORDS SUMMARY | 2025-04-05 13:28 | XMS_ITS | Encounter Summary ---
Author Organization [facility] Address [address] [place] [address] Care Team Providers Care Assurance Associate Name Role Phone Sharyn Bradford MD Primary Care Provider [phone] Source Comments In the event this information is protected by the Federal Confidentiality of Alcohol and Drug AbusePatient Records regulations: The Federal rules restrict any use of the information to criminally investigate or prosecute any alcohol or drug abuse patient.[facility] Encounter Details Date Type Department Care Team (Late st Contact Info) Description 03/30/2019 Patient Msg Neurology [address] [place] [id number] Korin Easley MD [address] [place] [address] RE: Appointment Cancellation Request Social History [...] documented as of this encounter Care Teams Assurance Associate Relationship Specialty Start Date End Date Sharyn Bradford MD [address] [place] [address] PCP - General 10/18/13 documented as of this encounter
--- OUTSIDE RECORDS SUMMARY | 2025-04-05 13:28 | XMS_ITS | Encounter Summary ---
Author Organization [facility] Address [address] [place] [address] Care Team Providers Care High Density Finishing Operator Name Role Phone Sharyn Bradford MD Primary Care Provider [phone] Source Comments In the event this information is protected by the Federal Confidentiality of Alcohol and Drug AbusePatient Records regulations: The Federal rules restrict any use of the information to criminally investigate or prosecute any alcohol or drug abuse patient.[facility] Encounter Details Date Type Department Care Team (Late st Contact Info) Description 06/17/2019 Patient Msg Nutrition Therapy [address] [place] [phone] Lea Beyer, RD [address] [place] [phone] RE: Appointment Cancellation Request Social History Tobacco [...] documented as of this encounter Care Teams High Density Finishing Operator Relationship Specialty Start Date End Date Sharyn Bradford MD [address] [place] [phone] PCP - General 10/18/13 documented as of this encounter
--- OUTSIDE RECORDS SUMMARY | 2025-04-05 13:28 | XMS_ITS | Encounter Summary ---
Author Organization [facility] Address [address] [place] [address] Care Team Providers Care Skilled Nursing Facilities Professional Name Role Phone Sharyn Bradford MD Primary Care Provider [phone] Source Comments In the event this information is protected by the Federal Confidentiality of Alcohol and Drug AbusePatient Records regulations: The Federal rules restrict any use of the information to criminally investigate or prosecute any alcohol or drug abuse patient.[facility] Encounter Details Date Type Department Care Team (Late st Contact Info) Description 04/15/2019 Patient Msg Colorectal Surgery [address] [place] [address] Mary Miranda, PhD [address] [place] [address] RE: Appointment Cancellation Request Social [...] documented as of this encounter Care Teams Skilled Nursing Facilities Professional Relationship Specialty Start Date End Date Sharyn Bradford MD [address] [place] [address] PCP - General 10/18/13 documented as of this encounter
--- OUTSIDE RECORDS SUMMARY | 2025-04-05 13:29 | XMS_ITS | Encounter Summary ---
Author Organization [facility] Address [address] [place] [address] Care Team Providers Care Boom Supervisor Name Role Phone Sharyn Bradford MD Primary Care Provider [phone] Source Comments In the event this information is protected by the Federal Confidentiality of Alcohol and Drug AbusePatient Records regulations: The Federal rules restrict any use of the information to criminally investigate or prosecute any alcohol or drug abuse patient.[facility] Encounter Details Date Type Department Care Team (Late st Contact Info) Description 09/16/2023 Patient Msg General Surgery [facility] [address] [place] [address] Anshu Cheney MD [address] [place] [address] Appointment Request Social History Tobacco [...] N ot on file 05/26/2020 Data from: https://www.neighborhoodatlas.medicine.[facility].edu/. Last address used for calculation Not on [...] on filedocumented in this encounter Care Teams Boom Supervisor Relationship Specialty Start Date End Date Sharyn Bradford MD [address] [place] [phone] PCP - General 10/18/13 documented as of this encounter
--- OUTSIDE RECORDS SUMMARY | 2025-04-05 13:29 | XMS_ITS | Encounter Summary ---
Author Organization [facility] Address [address] [place] [address] Phone Care Team Providers Care Motion Picture Camera Operator Name Role Phone Sharyn Bradford MD Primary Care Provider [phone] Reason for Visit * Reason Comments Med Refill Encounter Details Date Type Department Care Team ([facility] st Contact Info) Description 01/30/2024 Refill [facility] [address] [facility] [address] [place] [address] Rita Still MD [address] [facility] [address] [place] [address] Social History Tobacco Use Types Packs/Day Years [...] on filedocumented in this encounter Care Teams Motion Picture Camera Operator Relationship Specialty Start Date End Date Sharyn Bradford MD [address] [place] [address] [place] [address] PCP - General 03/02/20 documented as of this encounter
--- OUTSIDE RECORDS SUMMARY | 2025-04-05 13:29 | XMS_ITS | Encounter Summary ---
Author Organization [facility] Address [address] [place] [address] Phone Care Team Providers Care System Integration Engineer Name Role Phone Sharyn Bradford MD Primary Care Provider [phone] Encounter Details Date Type Department Care Team (Late st Contact Info) Description 01/20/2023 Scanned Document [facility] [address] [place] [address] Conversion, Onbase Social History Tobacco Use Types [...] on filedocumented in this encounter Care Teams System Integration Engineer Relationship Specialty Start Date End Date Sharyn Bradford MD [address] [place] [address] PCP - General 03/02/20 documented as of this encounter
--- OUTSIDE RECORDS SUMMARY | 2025-04-05 13:29 | XMS_ITS | Encounter Summary ---
Author Organization [facility] Address [address] [place] [address] Care Team Providers Care Golf Starter And Ranger Name Role Phone Sharyn Bradford MD Primary Care Provider [phone] Source Comments In the event this information is protected by the Federal Confidentiality of Alcohol and Drug AbusePatient Records regulations: The Federal rules restrict any use of the information to criminally investigate or prosecute any alcohol or drug abuse patient.[facility] Encounter Details Date Type Department Care Team (Late st Contact Info) Description 08/27/2019 Patient Msg Neurosurgery [address] [id number] [place] [address] [place] [address] RE: Appointment Cancellation Request Social History Tobacco [...] documented as of this encounter Care Teams Golf Starter And Ranger Relationship Specialty Start Date End Date Sharyn Bradford MD [address] [place] [address] PCP - General 10/18/13 documented as of this encounter
--- OUTSIDE RECORDS SUMMARY | 2025-04-05 13:29 | XMS_ITS | Patient Health Record ---
Author Organization [facility] [place] Address [address] [place] [address] Care Team Providers Care Supervising Appraiser Name Role Phone EMY LEMUS Primary Care Provider Unavailabl e Emy Lemus Unavailable [phone] Results Component Value Reference Range Notes IRON AND TIBC (Not yet revie wed by provider) Interpretation: Performing Lab: Notes/Report: [facility] , Iron 112.0 50.0-170.0 ug/dL Total Iron Binding Capacity 286.0 250.0-450.0 u g/dL Percent Iron Saturation 39.2 Performing Lab: see note ML - [facility] LB Vitamin B12 (Not yet reviewe d by provider) Interpretation: Performing Lab: Notes/Report: [facility] , Vitamin B12 [phone] pg/mL [address] [place], [place] [id number] Performed at: - [facility] Ref[facility] Operator Helper Crude Unit: Prabhakar [place] PhD, Phone: [phone] Performing Lab: see note - [facility] LB CBC AUTO DIFF (Not yet revie wed by provider) Interpretation: Performing Lab: Notes/Report: [facility] , White Blood Count 4.5 4.0-11.0 10 [...] 0.00-0.03 10 3/uL Performing Lab: see note - [facility] LB IRON AND TIBC (Not yet revie wed by provider) Interpretation: Performing Lab: Notes/Report: [facility] , Iron 116.0 50.0-170.0 ug/dL Total Iron Binding Capacity 302.0 250.0-450.0 u g/dL Percent Iron Saturation 38.4 Performing Lab: see note - [facility] LB PROF CHEM 8 (BAS METB) (Not yet reviewed by provider) Interpretation: Performing Lab: Notes/Report: [facility] , Sodium 143 136-145 mmol/L Potassium 4.3 3.5-5.1 mmol/L Chloride 105 98-107 mmol/L Carbon Dioxide 28.3 21.0-32.0 mmol/L Anion Gap 14.0 Glucose 96 74-106 mg/dL Blood Urea Nitrogen 11.0 7.0-18.0 mg/dL Creatinine 0.94 0.55-1.02 mg/dL Estimated GFR ( Mariela >60 >=60 mL/min/1.73m 2 Estimated GFR (Non- Terri >60 >=60 mL/min/1.73m 2 BUN Creatinine Ratio 11.7 Calcium 9.2 8.5-10.1 mg/dL Performing Lab: see note - [facility] LB Vitamin B12 (Not yet reviewe d by provider) Interpretation: Performing Lab: Notes/Report: [facility] , Vitamin B12 600 710-1246 pg/mL Refinery Operator Helper Crude Unit: Prabhakar [place] PhD, Phone: [phone] [address] [place], [place] [id number] Performed at: [facility] Performing Lab: see note LC - [facility] LB Vitamin B12 (Not yet reviewe d by provider) Interpretation: Performing Lab: Notes/Report: [facility] , Vitamin B12 799 509-8689 pg/mL Refinery Operator Helper Crude Unit: Prabhakar [place] PhD, Phone: [phone] Performed at: [facility] [address] [place], [place] [id number] Performing Lab: see note - [facility] LB CBC AUTO DIFF (Not yet revie wed by provider) Interpretation: Performing Lab: Notes/Report: [facility] , White Blood Count 6.7 4.0-11.0 10 3/uL Red Blood Count 4.38 4.20-5.40 10 6/uL Hemoglobin 14.6 12.0-16.0 g/dL Hematocrit 43.2 36.0-48.0 % Mean Corpuscular Volume 98.6 81.0-99.0 fL Mean Corpuscular Hemoglobin 33.3 26.7-34.0 pg Mean Corpuscular HGB Conc 33.8 29.9-35.2 g/dL Red Cell Distribution Width 12.8 11.0-15.0 % Platelet Count 177 150-450 10 3/uL Mean Platelet Volume 9.2 9.5-13.5 fL Neutrophils Percent Auto 61.0 43.0-75.0 % Lymphocytes Percent Auto 27.1 20.5-60.0 % Monocytes Percent Auto 6.9 1.7-12.0 % Eosinophils Percent Auto 4.3 0.9-7.0 % Basophils Percent Auto 0.6 0.2-2.0 % Immature Granulocytes Pct Auto 0.1 0.0-0.5 % Neutrophils Absolute Auto 4.1 1.4-6.5 10 3/uL Lymphocytes Absolute Auto 1.8 1.2-3.8 10 3/uL Monocytes Absolute Auto 0.5 0.3-0.8 10 3/uL Eosinophils Absolute Auto 0.3 0.0-0.7 10 3/uL Basophils Absolute Auto 0.0 0.0-0.1 10 3/uL Immature Granulocytes Abs Auto 0.01 0.00-0.03 10 3/uL Performing Lab: see note - [facility] LAB TESTING (Not yet reviewe d by provider) Interpretation: Performing Lab: Notes/Report: [id number] FERRITIN [facility] , Miscellaneous Test COMMENT . [address] [place], [place] [id number] Performed at: [facility] Test Ordered: [id number] Ferritin Refinery Operator Helper Crude Unit: Prabhakar [place] PhD, Phone: [phone] Ferritin 50 ng/mL CB Reference Range: 15-150 Performing Lab: see note [facility] PROF CHEM 8 (BAS METB) (Not yet reviewed by provider) Interpretation: Performing Lab: Notes/Report: [facility] , Sodium 143 136-145 mmol/L Potassium 4.1 3.5-5.1 mmol/L Chloride 107 98-107 mmol/L Carbon Dioxide 26.4 21.0-32.0 mmol/L Anion Gap 13.7 Glucose 99 74-106 mg/dL Blood Urea Nitrogen 12.0 7.0-18.0 mg/dL Creatinine 0.92 0.55-1.02 mg/dL Estimated GFR ( Mariela >60 >=60 mL/min/1.73m 2 Estimated GFR (Non- Terri >60 >=60 mL/min/1.73m 2 BUN Creatinine Ratio 13.0 Calcium 9.4 8.5-10.1 mg/dL Performing Lab: see note - [facility] Vitamin B12 (Not yet reviewe d by provider) Interpretation: Performing Lab: Notes/Report: [facility] , Vitamin B12 784 427-1426 pg/mL Refinery Operator Helper Crude Unit: Prabhakar [place] PhD, Phone: [phone] [address] [place], [place] [phone] Performed at: [facility] Performing Lab: see note [facility] VITAMIN D 25 [place] (Not yet rev iewed by provider) Interpretation: Performing Lab: Notes/Report: [facility] , Vitamin D 39.3 >100 ng/mL Potential Toxicity <20 ng/mL Vit D deficient 30-100 ng/mL Vit D sufficient 20-<30 ng/mL Vit D insufficient Performing Lab: see note ML - [facility] PROF CHEM 8 (BAS METB) (Not yet reviewed by provider) Interpretation: Performing Lab: Notes/Report: [facility] , Sodium 137 136-145 mmol/L Potassium 3.3 [...] mg/dL Performing Lab: see note ML - [facility] LB IRON AND TIBC (Not yet revie wed by provider) Interpretation: Performing Lab: Notes/Report: [facility] , Iron 59.0 50.0-170.0 ug/dL Total Iron Binding Capacity 306.0 250.0-450.0 u g/dL Percent Iron Saturation 19.3 Performing Lab: see note ML - [facility] FERRITIN (Not yet reviewed b y provider) Interpretation: Performing Lab: Notes/Report: [facility] , Ferritin 136.0 8.0-252.0 ng/mL Performing Lab: see note ML - [facility] LB CBC AUTO DIFF (Not yet revie wed by provider) Interpretation: Performing Lab: Notes/Report: [facility] , White Blood Count 2.8 4.0-11.0 10 [...] Performing Lab: see note ML - [facility] LB VITAMIN D 25 [place] (Not yet rev iewed by provider) Interpretation: Performing Lab: Notes/Report: [facility] , Vitamin D 31.2 <20 ng/mL Vit D deficient 20-<30 ng/mL Vit D insufficient >100 ng/mL Potential Toxicity 30-100 ng/mL Vit D sufficient Performing Lab: see note ML - [facility] LB FERRITIN (Not yet reviewed b y provider) Interpretation: Performing Lab: Notes/Report: [facility] , Ferritin 76.0 8.0-252.0 ng/mL Performing Lab: see note ML - [facility] LB VITAMIN D 25 [place] (Not yet rev iewed by provider) Interpretation: Performing Lab: Notes/Report: [facility] , Vitamin D 26.9 30-100 ng/mL Vit D sufficient 20-<30 ng/mL Vit D insufficient <20 ng/mL Vit D deficient >100 ng/mL Potential Toxicity Performing Lab: see note ML - [facility] PROF CHEM 8 (BAS METB) (Not yet reviewed by provider) Interpretation: Performing Lab: Notes/Report: [facility] , Sodium 141 136-145 mmol/L Potassium 3.9 [...] Performing Lab: see note ML - [facility] LB FERRITIN (Not yet reviewed b y provider) Interpretation: Performing Lab: Notes/Report: [facility] , Ferritin 78.0 8.0-252.0 ng/mL Performing Lab: see note ML - [facility] LB CBC AUTO DIFF (Not yet revie wed by provider) Interpretation: Performing Lab: Notes/Report: [facility] , White Blood Count 5.1 4.0-11.0 10 [...] Performing Lab: see note ML - [facility] LB VITAMIN D 25 [place] (Not yet rev iewed by provider) Interpretation: Performing Lab: Notes/Report: [facility] , Vitamin D 35.4 20-<30 ng/mL Vit D insufficient <20 ng/mL Vit D deficient 30-100 ng/mL Vit D sufficient >100 ng/mL Potential Toxicity Performing Lab: see note ML - [facility] IRON AND TIBC (Not yet revie wed by provider) Interpretation: Performing Lab: Notes/Report: [facility] , Iron 72.0 50.0-170.0 ug/dL Total Iron Binding Capacity 340.0 250.0-450.0 u g/dL Percent Iron Saturation 21.2 Performing Lab: see note ML - [facility] Reason For Referral No Information Encounters Encounter Location Date Provider Diagnosis [facility] Oncology [address] [facility] [place] [address] [facility] [address] [facility] [place] [address] 06/20[facility]20[facility] [address] [facility] [place] [address] 06/27[facility]20[facility] [address] [facility] [place] [address] 07/04/2024 Emy Allan [facility] Oncology [address] [facility] [place] [address] 01/17[facility] [address] [facility] [place] [address] 02/16/2025 Emy Allan [facility] Oncology [address] [facility] [place] [address] 03/16/2025 Emy Allan [facility] Oncology [address] [facility] [place] [address] 06/07/2024 Emy Allan [facility] Oncology [address] [facility] [place] [address] 05/05/2024 Emy Allan [facility] Oncology [address] [facility] [place] [address] 07/05/2024 [facility] [address] [facility] [place] [address] 08/30/20[facility] [address] [facility] [place] [address] 11/01/20[facility] [address] [facility] [place] [address] 01/10/2025 Emy Allan Plan Of Treatment Pending Test Test Name Order Date CBC AUTO DIFF 01/13/2024 CBC AUTO DIFF 02/09/2024 CBC AUTO DIFF 06/02/2024 CBC AUTO DIFF 07/05/2024 CBC AUTO DIFF 10/31/2024 CBC AUTO DIFF 01/09/2025 CRP 12/22/2023 FERRITIN 12/22/2023 FERRITIN 06/02/2024 FERRITIN 02/09/2024 FERRITIN 10/31/2024 FERRITIN 07/05/2024 IRON AND TIBC 10/31/2024 IRON AND TIBC 01/09/2025 IRON AND TIBC 07/05/2024 IRON AND TIBC 06/02/2024 IRON AND TIBC 02/09/2024 IRON AND TIBC 12/22/2023 LAB TESTING 12/22/2023 LAB TESTING 01/09/2025 PROF CHEM 8 (BAS METB) 01/09/2025 PROF CHEM 8 (BAS METB) 10/31/2024 PROF CHEM 8 (BAS METB) 07/05/2024 PROF CHEM 8 (BAS METB) 06/02/2024 VITAMIN D 25 [place] 07/05/2024 VITAMIN D 25 [place] 10/31/2024 VITAMIN D 25 [place] 01/09/2025 VITAMIN D 25 [place] 06/02/2024 VITAMIN D 25 [place] 02/09/2024 Erythrocyte Sedimentation Rate 4 Vitamin B12 02/09/2024 Factor V Leiden Mutation 12/22/2023 Factor II, DNA Analysis 12/22/2023 Beta-2 Glycoprotein I Ab,G,A,M Vitamin B12 01/09/2025 Vitamin B12 10/31/2024 Vitamin B12 07/05/2024 Vitamin B12 06/02/2024 Next Appt Details Provider Name:Emy Lemus , 04/11/2025 11:15:00 AM, [address] [place] [address], [place], [address], Provider Name:Emy Lemus , 04/11/2025 11:30:00 AM, [address] [place] [address], [place], [address], Provider Name:Emy Lemus , 04/13/2025 09:00:00 AM, [address] [place] [address], [place], [address], Provider Name:Emy Lemus , 05/11/2025 09:00:00 AM, [address] [place], [place] [address], [address], Provider Name:Emy Lemus , 06/08/2025 09:00:00 AM, [address] [place], [place] [address], [place], [address], Insurance Providers Payer Name Payer Address Payer Phone Subscriber Number Group Number Insured Name Patient Relationship to Insured Coverage Start Date Coverage End Date [employer] MEDICARE [address] [place], [place] [id number] Maricarmen Tran Self - patient is the insured 5 MEDICAID [place] 2ND INS [address] OFFICE OF [facility] [place] [id number] Maricarmen Tran Self - patient is the insured 4
--- OUTSIDE RECORDS SUMMARY | 2025-04-05 13:29 | XMS_ITS | Clinical Summary ---
Author Organization [facility] Address [address] [place] [address] Phone Care Team Providers Care Loom Overhauler Name Role Phone Sharyn Bradford MD Primary Care Provider [phone] Allergies Active Allergy Reactions Criticality Noted Date [...] 06/08/2023 Atrial tachycardia 06/08/2023 Sinus node dysfunction 06/08/2023 Sinus tachycardia 06/08/2023 Seizures 06/08/2023 Syncope 06/08/2023 Chiari I malformation 03/28/2019 Mild protein-calorie malnutrition 08/18/2018 Obesity, Class III, BMI 40-49.9 (morbid obesity) 07/22/2018 Eosinophilic esophagitis 11/10/2013 Overview (06/08/2023): -Recent diagnosis. -Biopsy proven per patient. -Was on Flovent then a five day course of prednisone was given (completed) Plan: Continue Flovent. Anemia 10/24/2013 Overview (06/08/2023): Acute, likely 2/2 vaginal bleed, plan for IUD as out-pt. Hgb stable Acute thrombosis of left axillary vein 4 Encounters Date Type Department Care Team Description 03/15/2025 9:35 AM EDT - 03/15/2025 11:59 PM EDT Hospital Encounter [address] [address] Pacemaker; Sick sinus syndrome (Multi) Discharge Disposition: Home from Last 3 Months Family History Medical History Relation Name Comments [...] 1982 Medicare Annual Wellness Visit (AWV) 1982 MMR Vaccines (1 of 1 - Standard series) 10/31/1983 Hepatitis C Screening 2000 Hepatitis A Vaccines (1 of 2 - Risk 2-dose series) 2001 Hepatitis B Vaccines (1 of 3 - 19+ 3-dose series) 2001 Cervical Cancer Screening 10/31/2003 HPV/Cotest 10/31/2003 Pap Smear 10/31/2003 DTaP/Tdap/Td Vaccines (1 - Tdap) 2004 HPV Vaccines (1 - 3-dose standard series) 2009 Diabetes Screening 06/20/2021 06/20/2020, 1 07/27/2019, 04/09/2020, Additional history exists Mammogram 2022 Influenza Vaccine (#1) 2025 0, 08/29/2019, 04/10/2019, Additional history exists COVID-19 Vaccine (1 - 2024- season) 2025 Zoster Vaccines (1 of 2) 2032 HIB [...] on patient's age to complete this topic Procedures Procedure Name Priority Date/Time Associated Diagnosis Comments CARDIAC DEVICE CHECK - REMOTE - PACEMAKER Routine 03/15/2025 9:41 AM EDT Pacemaker Sick sinus syndrome (Multi) COMPREHENSIVE METABOLIC PANEL Routine 06/20/2020 7:23 AM EST from Last 3 Months or Most Recently Relevant to Health Maintenance Results * CARDIAC DEVICE CHECK - REMOTE - PACEMAKER (03/15/2025 9:41 AM EDT) Anatomical Region Laterality Modality Monitor/Device 03/15/2025 2:00 AM EDT us Rita Still MD CV IMPLANTABLE CARDIAC DEVICE UT OCEDURES Final Result * (ABNORMAL) Comprehensive Metabolic Panel (06/20/2020 7:23 AM EST) Glucose 87 74 - 99 mg/dL [facility] Sodium 141 136 - 145 mmol/L [facility] Potassium 3.7 3.5 - 5.3 mmol/L [facility] Chloride 108(H) 98 - 107 mmol/L [facility] Bicarbonate 23 21 - 32 mmol/L [facility] Anion Gap 14 10 - 20 mmol/L [facility] Urea Nitrogen 16 6 - 23 mg/dL [facility] Creatinine 0.79 0.50 - 1.05 mg/dL [facility] GLOMERULAR FILTRATION RATE-NON >60 >60 mL/min/1.7 3m2 [facility] GLOMERULAR FILTRATION RATE- >60 >60 mL/min/1.7 2 [facility] Comment: CALCULATIONS OF ESTIMATED GFR ARE PERFORMED USING THE MDRD STUDY EQUATION FOR THE IDMS-TRACEABLE CREATININE METHODS. CLIN CHEM 2007;53:766-72 Calcium 9.2 8.6 - 10.3 mg/dL [facility] Albumin 4.0 3.4 - 5.0 g/dL [facility] Alkaline Phosphatase 82 33 - 110 U/L [facility] Total Protein 7.1 6.4 - 8.2 g/dL [facility] AST 20 9 - 39 U/L [facility] Total Bilirubin 0.3 0.0 - 1.2 mg/dL [facility] ALT (SGPT) 10 7 - 45 U/L [facility] Comment: Patients treated with Sulfasalazine may generate falsely decreased results for ALT. 06/20/2020 7:23 AM EST 06/20/2020 7:27 AM EST Sirena Ma PA-C LAB BLOOD ORDERABLES F inal Result [facility] from Last 3 Months or Most Recently Relevant to Health Maintenance Insurance [employer] MEDICARE ASSURE MEDICAID [facility] [address] AETNA MEDICARE ASSURE MEDICAID Care Teams Loom Overhauler Relationship Specialty Start Date End Date Sharyn Bradford MD [facility] [place] [address] PCP - General 03/02/20
--- OUTSIDE RECORDS SUMMARY | 2025-04-05 13:29 | XMS_ITS | Encounter Summary ---
Author Organization [facility] Address [address] [place] [address] Care Team Providers Care Shoe Shanker Name Role Phone Sharyn Bradford MD Primary Care Provider [phone] Source Comments In the event this information is protected by the Federal Confidentiality of Alcohol and Drug AbusePatient Records regulations: The Federal rules restrict any use of the information to criminally investigate or prosecute any alcohol or drug abuse patient.[facility] Encounter Details Date Type Department Care Team (Late st Contact Info) Description 11/19/2022 Patient Msg General Surgery [facility] [address] [place] [address] Anshu Cheney MD [address] [place] [address] Appointment Request Social History Tobacco [...] N ot on file 05/26/2020 Data from: [email or web address] Last address used for calculation Not [...] on filedocumented in this encounter Care Teams Shoe Shanker Relationship Specialty Start Date End Date Sharyn Bradford MD [address] [place] [address] PCP - General 10/18/13 documented as of this encounter
--- OUTSIDE RECORDS SUMMARY | 2025-04-05 13:29 | XMS_ITS | Encounter Summary ---
Author Organization [facility] Address [address] [place] [address] Care Team Providers Care Print Finisher Name Role Phone Sharyn Bradford MD Primary Care Provider [phone] Source Comments In the event this information is protected by the Federal Confidentiality of Alcohol and Drug AbusePatient Records regulations: The Federal rules restrict any use of the information to criminally investigate or prosecute any alcohol or drug abuse patient.[facility] Encounter Details Date Type Department Care Team (Late st Contact Info) Description 04/03/2019 Patient Msg Nutrition Therapy [facility] [address] [place] [address] [facility] [address] [place], [place] [id number] RE: Appointment Cancellation Request Social History Tobacco [...] documented as of this encounter Care Teams Print Finisher Relationship Specialty Start Date End Date Sharyn Bradford MD [address] [place] [address] PCP - General 10/18/13 documented as of this encounter
--- OUTSIDE RECORDS SUMMARY | 2025-04-05 13:34 | XMS_ITS | CCD ---
Author Organization [facility] Care Team Providers Care Recruitment And Outreach Assistant Name Role Phone Unavailable Primary Care Provider UnavailROSELINE Johnson Referring Unavailable Viktor Sotelo Unavailable Viktor Sotelo MD Primary Care Provider [phone] MD Viktor Sotelo Primary Care Provider MD [...] Admit Provider MD Dustin Cody Attending Provider [phone] VIKTOR SOTELO Primary Care Physician MD Viktor Sotelo Primary Care Provider DO Urbano Palma Attending Provider [phone] Parminderlorene DO Michael Murrieta Emergency Provider MD Eduardo Swain Admit Provider [phone] MD Eduardo Swain Attending Provider MD Dustin Cody Admit Provider MD Dustin Cody Attending Provider ViscDO Urbano lazar Admit Provider DO Raffaele Ellsworth Emergency Provider MD Toribio Cerda Admit Provider MD Toribio Cerda Attending Provider MD Viktor Sotelo Primary Care Provider Louie [...] MD Viktor Sotelo Primary Care Provider [phone] LAURYN Dejesus Other Provider Unavailable LAURYN Palmer Other Provider Unavailable LAURYN Garrett Other Provider Unavailable LAURYN Arana Other Provider Unavailable LAURYN Orta Other Provider Unavailable LAURYN Martin Other Provider Unavailable MD Magda Hurley Other Provider MD Eh Jennings Other Provider DUANE Paiz Other Provider DO Mahad Mandel Other Provider MD Luciano Pedro Other Provider DO Gerry Noble Other Provider MD Mike Smart Other Provider MD Marylu Kemp Other Provider Donny, ANP-BC Afshan Other Provider [phone] MD Faby Watts Other Provider [phone] MD Mitesh Hoffman Other Provider MD Sintia Gan Other Provider MD Siobhan Zuniga Other Provider DO Dennis Espinoza Other Provider MD Dawson Branham Other Provider MD Yossi Peterson Other Provider Glynn, SPECIAL EDUCATION ITINERANT TEACHER-C Gretta Helms Other Provider MD Yonny Bazan Other Provider MD Trace Morataya Other Provider MD Dimitris Joe Other Provider DO Verona Waterman Other Provider DO All Bloom Other Provider DO Joe Holland Other Provider DUANE Roman Other Provider DO Rosendo Holland Other Provider MD Harriet Andrade Other Provider [phone] DUANE Mcnair Other Provider DUANE Montana Other Provider Shahida, LAURYN Hurtado Other Provider Unavailable MD Viktor Sotelo Primary Care Provider [phone] MD Toribio Cerda Admit Provider [phone] MD Toribio Cerda Attending Provider [phone] DO Ke Cage Emergency Provider MD Eduardo [...] Viktor Sotelo MD Primary Care Provider Viktor Sotleo MD Primary Care Provider VIKTOR SOTELO Primary Care Unavailable JESSE SIMS Attending Unavailable LEMUEL RENTERIA Admitting Unavailable MARKER, SUJATA Referring Unavailable TONYA JACOBS Consulting Unavailable GILBERTO LOCKHART Consulting Unavailable RAYMOND ORTIZ Consulting Unavailable MD Viktor Sotelo Primary Care Provider [phone] MD Nimesh Cerda Attending Provider Viktor Sotelo MD Primary Care Provider Viktor Sotelo MD Primary Care Provider Estela Chung PA-C Attending Provider Nimesh Cerda MD Attending Provider Guille PATINO, Michael Attending Provider Viktor Sotelo MD Primary Care Provider Michael Viveros MD Attending Provider Zaida PATINO, Nimesh Attending Provider Giedrareyna PATINO, Andrius Attending Provider Giedrareyna PATINO, Andrius Vytautnico Attending Unavailable Giedraitis , Andrius Vytautas Attending Unavailable Giedraitis , Andrius Vytautas Attending Unavailable Giedraitis , Andrius Vytautnico Attending Unavailable Viktor Sotelo MD Primary Care Provider Nimesh eCrda MD Attending Provider Gaurav Oliver MD Attending Provider Michael VIVEROS Referring Unavailable ESTELA CHUNG Attending Unavailable ESTELA CHUNG Attending Unavailable Michael VIVEROS Admitting Unavailable Michael VIVEROS Attending Unavailable Michael VIVEROS R Referring Unavailable ESTELA CHUNG Attending Unavailable ESTELA CHUNG Attending Unavailable Sanchez, Viktor E Primary Care Unavailable Zaida, Nimesh Admitting Unavailab Nimesh Kerns Attending Unavailab Gaurav Abebe Admitting Unavailable Gaurav Oliver Attending Unavailable Sanchez Viktor E Primary Care Unavailable Michael Viveros Attending Unavailable Sotelo, Viktor E Primary Care Unavailable Michael Viveros Admitting Unavailable Sanchez, Viktor E Primary Care Unavailable Giedraitis, Andrius Admitting Unavailable Giedraitis, Andrius Attending Unavailable Giedraitis, Andrius Admitting Unavailable Giedraitis, Andrius Attending Unavailable Viktor Sotelo Primary Care Unavailable Viktor Sotelo Primary Care Unavailable Estela Chung Admitting Unavailable Estela Chung Attending Unavailable RITA OLIVIA Referring Unavailable VIKTOR SOTELO Primary Care Unavailable RITA OLIVIA Referring Unavailable VIKTOR SOTELO Primary Care Unavailable RITA OLIVIA Referring Unavailable VIKTOR SOTELO Primary Care Unavailable RITA OLIVIA Referring Unavailable VIKTOR SOTELO Primary Care Unavailable Allergies Allergy Classification Reported Allergen(s) Allergy Type Date of Onset Reaction(s) Facility (20 sources) HYDROmorphone; 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: [Dilaudid] Drug Allergy 9 Itching (finding), Unknown (qualifier value), Itching, Unknown [facility] (2 sources) HYDROmorphone Drug Allergy 9 Itching [facility] (19 sources) HYDROmorphone; 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: [HYDROmorphone] Drug Allergy 9 Itching [facility] (1 source) HYDROmorphone Drug Allergy [facility] (1 source) Fluarix (PF) Drug allergy (disorder) 2 [facility] Medications Current Medications Medication [...] cysto., # 2 tab(s), Refills(s) 0, Pharmacy: [facility]/pharmacy #[id number], 167, cm, 04/28/23 10:12:00 EST, Height/Length Dosing, 111, kg, 04/28/23 10:12:00 EST, Weight Dosing Start Date: 06/02/24 Status: Ordered Start: 03-03-2019 End: 03-05-2019 take [id number] mg by mouth every twelve hours Ciprofloxacin Hcl 500 mg tablet Discontinued 500 MG PO Twice daily March 03, 2019 12:00am March 05, 2019 4:30pm 1 Tablet by mouth every 12 hours STOP DATE 03/04 1 ml erenumab-aooe 70 mg/ml auto-injector (20 [...] June 25, 2022 10:16pm last taken 10/09/21 24 hr metoprolol succinate 25 mg extended release oral tablet (9 sources) beta-Adrenergic Priti Start: 01-20-2023 take 1 [...] 0, Nausea/Vomiting Start Date: 11/15/13 Status: Ordered Repeat number: 1 Start: 11-15-2013 Zofran Oral, S ee Instructions, [...] Tablet Discontinued 250 MG PO Twice daily February 21, 2020 12:00am March 30, 2020 [...] procedure, # 2 cap(s), Refills(s) 0, Pharmacy: [facility]/pharmacy #[id number], 167, cm, 09/03/22 13:32:00 [...] 14, 2021 1:00am July 09, 2021 6:36pm ferrous sulfate 325 mg oral tablet (20 [...] take 1 capsule by mouth once daily linaCLOtide (Linzess) 145 mcg capsule Take 1 capsule (145 mcg) by mouth once daily. 12/13/2020 Active Start: 03-03-2019 End: 02-18-2020 take 1 capsule by mouth once daily in the morning Linaclotide (Linzess) 145 mcg capsule Discontinued 145 MCG PO Daily March 03, 2019 12:00am February 18, 2020 5:44pm Takes in morning. Comment on above: Take 1 capsule by [facility] once daily. LORazepam 1 mg oral tablet [...] 2019 1:00am February 18, 2020 5:44pm Vit No.984-Xduk-Zohhk ( Vitamin) 27 mg iron- 800 mcg Tablet (20 sources) Start: 12-11-2021 End: 09-03-2022 take 1 tablet by mouth once daily Vit No.911-Qduq-Ausin ( Vitamin) 27 mg iron- 800 mcg Tablet Discontinued 1 TAB PO Daily December 10, 2021 11:00pm September 03, 2022 6:39pm Start: 12-11-2021 End: 09-03-2022 take 1 tablet by mouth once daily Vit No.214-Myuu-Kxtea ( Vitamin) 27 mg iron- 800 mcg Tablet Discontinued 1 TAB PO Daily December 11, 2021 12:00am September 03, 2022 7:39pm Start: 12-11-2021 take 1 tablet by tejas th once daily Vit No.070-Cgbe-Panmj ( Vitamin) 27 mg iron- 800 mcg Tablet Active 1 TAB PO Daily December 10, 2021 11:00pm Start: 12-11-2021 take 1 tablet by tejas th once daily Vit No.113-Hqet-Noepw ( Vitamin) 27 mg iron- 800 mcg [...] Refills(s) 0 Start Date: 11/15/13 Status: Ordered Quantity: 10.0 Unit: mL Repeat number: 1 Comment on above: 1 Suppository by REC ASHUTOSH route every 6 hours as needed. pyridostigmine bromide 60 mg oral tablet (5 sources) Start: 11-11-19 End: 11-12-19 take 1 tablet by mouth twice daily Pyridostigmine [place] 60 mg tablet Discontinued 1 TAB PO [...] 1 SUPP VAGINAL Daily at bedtime 7 7 June 26, 2022 1:00am July 15, [...] Norepinephrine Reuptake Inhibitor Start: 07-15-19 End: 07-02-19 23 take 1 capsule by [...] 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: [Sinoatrial node dysfunction] Onset: 2 Chronic Complication of device; implant or graft (1 [...] 3 07-14-2021 Chronic Deficiency and other anemia (1 source) Anemia, [...] 4 Episodic Other aftercare (1 source) Other alf (current) drug therapy; 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: [OTH RESIDENTIAL CURRENT DRUG THERAPY] Onset: 3 Episodic Other [...] Episodic Other diseases of bladder and urethra (7 sources) Urethral stricture 09-15-2022 Episodic Other diseases of bladder and urethra (3 sources) Male urethral stricture; 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: [Unspecified urethral stricture, male, unspecified site] Onset: 3 Episodic Other diseases of kidney and ureters (20 sources) Renal mass; 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: [Other specified disorders of kidney and ureter] Onset: 3 07-17-2020 Chronic Other diseases of kidney and ureters (3 sources) Disorder of kidney and/or ureter; 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: [...] jejunostomy 07-14-2021 Chronic Other infections; including parasitic (8 sources) Infection by Trichomonas 07-17-2020 Episodic Other injuries and conditions due to external causes (8 sources) Injury of head 07-17-2020 Episodic Other lower respiratory disease (9 sources) Dyspnea; 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: [Shortness of breath] Episodic Other nervous system disorders (20 sources) Benign intracranial hypertension; 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: [Benign intracranial [...] Episodic Other nutritional; endocrine; and metabolic disorders (13 sources) Body mass index 40+ - severely [...] substance or known physiological condition] 10-05-2021 Chronic Suicide and intentional self-inflicted injury (20 sources) Suicidal thoughts; 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: [Suicidal ideations] 08-31-2021 Episodic Unclassified (18 sources) Advanced maternal age ; 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: [Advanced maternal age affecting , antepartum] 12-10-2021 Unclassified (17 sources) Chiari malformation; 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: [Chiari malformation] 12-13-2020 Unclassified (3 sources) Drug therapy finding 06-02-2024 Urinary tract infections (16 sources) Chronic cystitis; 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: [Other chronic cystitis without hematuria] Onset: 3 04-09-2021 Chronic Urinary tract infections (20 sources) Urinary tract infectious disease; 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: [Urinary tract infection, site not specified] Onset: 3 12-09-2021 Episodic Past or Other Problems Problem Classification Problem Date Documented Da te Episodic/Chronic Blindness and vision defects (2 sources) Abnormal vision; 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: [Unspecified visual disturbance] Onset: 4 06-17-2021 Episodic Cardiac dysrhythmias (20 sources) Sinus bradycardia; 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: [Other specified cardiac dysrhythmias] Onset: 3 12-13-2020 Episodic Deficiency and other anemia (20 sources) Anemia; 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: [Anemia, unspecified] Onset: 4 06-17-2021 Episodic Epilepsy; convulsions (16 sources) Seizure; 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: [Unspecified convulsions] Onset: 3 [...] Onset: 2 Episodic Phlebitis; thrombophlebitis and thromboembolism (14 sources) Acute deep venous thrombosis of left axillary vein; 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: [Acute embolism and thrombosis of left axillary vein] Onset: 4 06-08-2023 Episodic Residual codes; unclassified (2 sources) Edema of the upper extremity ; 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: [Localized edema] Onset: 4 Episodic Residual codes; unclassified (2 sources) History of partial gastrectomy; 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: [Acquired absence of stomach [part of]] Onset: 9 03-29-2019 Episodic Spondylosis; intervertebral disc disorders; other back problems (20 sources) Neck pain; 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: [Cervicalgia] Onset: 5 12-13-2020 Episodic Syncope (20 sources) Syncope; 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: [Syncope and collapse] Onset: 3 08-25-2019 Episodic Unclassified (17 sources) History of intubation of gastrointestinal tract via jejunostomy; 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: [History of jejunostomy tube placement] 07-14-2021 Results Test Name Value Interpretation Reference Range Facility Ambulatory Visit Summaryon 0 01-02-2025 Ambulatory Visit Summary Ambulatory Visit Summary MARICARMEN ANDERSON :1980 Visit Date:01/02/2025 Ambulatory Visit Instructions Your Diagnosis Urethral stricture Your Care Team Attending Physician - JATIN RILEY, ESTELA Leone Primary Care Physician - SANCHEZ PATINO, VIKTOR Referring Physician - GUILLE PATINO, Michael Johnson This Is Your Medications List aripiprazole (aripiprazole 30 mg oral tablet) ondansetron (Zofran) promethazine (Phenergan 50 mg/mL injectable solution) trazodone (traZODONE 50 mg Tab) Procedures Performed Cystourethroscopy with dilation of urethral stricture (12/09/2022), Cystourethroscopy with dilation of urethral stricture (02/19/2021), Appendectomy, Cholecystectomy, Pacemaker care. Discharge Vitals Temperature (Temporal Artery) 37 ???C Heart Rate (Peripheral) 80 Respiratory Rate 16 Blood Pressure 138/82 Height 167 cm Height 66 in Weight 128.7 kg Weight 283.735 lb BMI 46.15 Medications What How Much When Instructions Unchanged aripiprazole (aripiprazole 30 mg oral tablet) Unchanged ondansetron (Zofran) By Mouth Unchanged promethazine (Phenergan 50 mg/ mL injectable solution) 1 Milliliter Intramuscular Every 6 hours as needed for for nausea/vomiting Unchanged trazodone (traZODONE 50 mg Tab) Allergies Dilaudid (Itching, Unknown) HYDROmorphone (Itching, Unknown, Itching) Problems Ongoing - Any problem that you are currently receiving treatment for. Anticoagulated Anxiety BMI 37.0-37.9, adult Chronic cystitis without hematuria Flank pain Gastroparesis Gross hematuria Head injury Incomplete bladder emptying Kidney mass Morbid obesity with BMI of 45.0-49.9, adult Nocturia Recurrent UTI Recurrent UTI Renal mass Seizures Trichomoniasis Urethral stricture Urinary urgency Patient Survey You may receive a survey via text or e-mail asking about your office visit. Please share your experience with us by completing your survey. We appreciate your feedback and thank you for choosing us for your care. Patient Portal You may access all of your results and other medical record information on our secure patient portal. If you are not signed up for this yet, please contact [employer] at [phone] to get signed up today. Language Information Language assistance services are available as needed. Normal [facility] Urology Office/Clinic Noteon 01-02-2025 Urology Office/Clinic Note Urology Office/Clinic Note Chief Complaint 6 month f/u HPI Staff 44 year old female 6 month F/U AAP CYSTO Previous Dx: Incomplete bladder emptying, urethral stricture, chronic cystitis w/o hematuria, renal mass BBSQ score today is 9. Urinates every 1-2 hours. Nocturia x2. Rarely has urgency or leakage. Denies any visible blood or pain of any kind. No recent treatment for any UTI's. PVR today is 74ml. Review of Systems PHQ Score Initial Depression Screen Score: 0 SCORE No fever, chills, malaise, myalgia. No abdominal pain, flank pain, gross hematuria. Physical Exam Vitals & Measurements T: 37 ???C(Temporal Artery) HR: 80(Peripheral) RR: 16 BP: 138/82 HT: 167 cm HT: 66 in WT: 128.7 kg WT: 283.735 lb BMI: 46.15 General: nontoxic, NAD Mouth: moist mucosa Lungs: normal respiratory effort Cardio: regular rate, good distal perfusion Abdomen: nondistended Neurologic: Grossly normal Skin: No rashes or suspicious lesions Assessment/Plan 1. Urethral stricture (N35.919: Unspecified urethral stricture, male, unspecified site) cysto/UD 02/19/21 & 12/09/22. Repeated 07/05/24 d/t worsening PVR. Cysto completely normal. No UD performed. Pt voiding well today. No UTIs in past year. UA today shows sm leuks only. Asx. No complaints. Ordered: ciprofloxacin, See Instructions, 1 tab po night prior to cysto. 1 tab po following cysto., # 2 tab(s), Refills(s) 0, Pharmacy: [facility]/pharmacy #[id number], 167, cm, 04/28/23 10:12:00 EST, Height/Length Dosing, 111, kg, 04/28/23 10:12:00 EST, Weight Dosing 65478 Measure Post Void residual urine and/or bladder capacity by US- non-imaging E&M of Est. Patient Low 20-29 Min 81759 Urnls Dip Stick Auto w/o Microscopy POC 23423 2. Incomplete bladder emptying (R33.9: Retention of urine, unspecified) PVR (cc): 04/09/21 - 58 09/03/22 - 254 04/27/23 - 161 06/02/24 - 286 Today - 74ml. Improved. Recommend timed voids and double void maneuvers. Ordered: E&M of Est. Patient Low 20-29 Min 02261 3. 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 Abd MRI 01/21/23 [facility] [place] mildly septated T2 hyperintense lesion involving superior pole of L kidney measuring up to 9mm (does not appear to enhance on postcontrast imaging). An additional subcentimeter T2 hyperintense lesion involving inferior pole of L kidney measuring up to about 4mm (too small for accurate characterization). R kidney unremarkable. CRESCENCIO 05/30/24 [facility] [place] cystic changes with questionable kidney stones. CT 07/04/24 - no evidence of prior lesion. Resolved. No further imaging indicated. Ordered: E&M of Est. Patient Low 20-29 Min 83502 Follow-up With When Contact Information [facility] Additional Instructions: Only if needed/new problems arise. No scheduled appointment indicated at this time. Patient Education Cystoscopy Problem List/Past Medical History Ongoing Anticoagulated Anxiety BMI 37.0-37.9, adult Chronic cystitis without hematuria Flank pain Gastroparesis Gross hematuria Head injury Incomplete bladder emptying Kidney mass Morbid obesity with BMI of 45.0-49.9, adult Nocturia Recurrent UTI Recurrent UTI Renal mass Seizures Trichomoniasis Urethral stricture Urinary urgency Historical No qualifying data Procedure/Surgical History Cystourethroscopy with dilation of urethral stricture (12/09/2022), Cystourethroscopy with dilation of urethral stricture (02/19/2021), Appendectomy, Cholecystectomy, Pacemaker care. Medications aripiprazole 30 mg oral tablet Phenergan 50 mg/mL injectable solution, 50 mg= 1 mL, IntraMuscular, q6hr, PRN traZODONE 50 mg Tab Zofran, Oral Allergies Dilaudid (Itching, Unknown) HYDROmorphone (Itching, Unknown, Itching) Social History Alcohol Never., 06/02/2024 Substance Abuse Never., 06/02/2024 Tobacco Never (less than 100 in lifetime) Tobacco Use:. Never Smokeless Tobacco Use:. Household tobacco concerns: No., 01/02/2025 Family History Diabetes mellitus type 2: Grandparent. Immunizations Vaccine Date Status influenza virus vaccine, inactivated 05/27/2020 Recorded influenza virus vaccine, inactivated 05/2020 Recorded influenza virus vaccine, inactivated 04/10/2019 Recorded Lab Results Ambulatory Point of Care Results Bilirubin Urine Dipstick: Negative (01/02/25 08:30:00) Blood Urine Dipstick: Negative (01/02/25 08:30:00) Glucose Urine Dipstick: Negative (01/02/25 08:30:00) Ketones Urine Dipstick: Negative (01/02/25 08:30:00) Leukocytes Urine Dipstick: 1+ Small (01/02/25 08:30:00) Nitrite Urine Dipstick: Negative (01/02/25 08:30:00) Protein Urine Dipstick: Negative (01/02/25 08:30:00) Specific [place] Urine Dipstick: 1.015 (01/02/25 08:30:00) Urine Appearance Urine Dipstick: Slightly cloudy (01/02/25 08:30:00) Urine Color Urine Di (more content not included)... Normal [facility] Comment on above: Result Comment: Elec tronically Signed By: ESTELA CHUNG PA-C\Date and Time Signed: 01/02/25 10:35 EDT Basic Metabolic Panelon 05-2 Anion gap [Moles/Vol] 10.7 mmol/L Normal 6.0-15.0 [facility] Comment on above: Performed By: #### B MP, PT, PTT #### [facility] [address] Calcium [Mass/Vol] 8.8 mg/dL Normal 8.6-10.3 [facility] Comment on above: Performed By: #### B MP, PT, PTT #### [facility] [address] Chloride [Moles/Vol] 106 mmol/L Normal 98-107 [facility] Comment on above: Performed By: #### B MP, PT, PTT #### [facility] [address] CO2 [Moles/Vol] 24.9 mmol/L Normal 21.0-31.0 [facility] Comment on above: Performed By: #### B MP, PT, PTT #### [address] Creatinine [Mass/Vol] 0.92 mg/dL Normal 0.60-1.20 [facility] Comment on above: Performed By: #### B MP, PT, PTT #### [place] [address] [place] Creatinine Clr Calc Pharmacy 104.07 Normal [facility] Comment on above: Result Comment: PERF ORMED BY: [place] [address] PATHOLOGIST TELEPHONE LINES REPAIRER KANDACE CANTU M.D. Performed By: #### B MP, PT, PTT #### [place] [address] [place] GFR/1.73 sq M.predicted MDRD (S/P/Bld) [Vol rate/Area] mL/min/{1.73_m2} Normal [facility] Comment on above: Performed By: #### B MP, PT, PTT #### [place] [address] [place] Glucose [Mass/Vol] 99 mg/dL Normal 70-100 [facility] Comment on above: Result Comment: [facility] Glucose Reference Range is dependent on time and content of last meal. Glucose of more than 200 mg/dL in a nonstressed, ambulatory subject supports the diagnosis of Diabetes Mellitus. ADA recommended reference range Performed By: #### B MP, PT, PTT #### [facility] [address] Potassium [Moles/Vol] 3.6 mmol/L Normal 3.5-5.1 [facility] Comment on above: Performed By: #### B MP, PT, PTT #### [facility] [address] [place] [address] [place] Sodium [Moles/Vol] 138 mmol/L Normal 136-145 [facility] Comment on above: Performed By: #### B MP, PT, PTT #### [facility] [address] [place] [address] [place] Urea nitrogen [Mass/Vol] 11 mg/dL Normal 7-25 [facility] Comment on above: Performed By: #### B MP, PT, PTT #### [facility] [address] [place] [address] [place] Basophils Auto (Bld) [#/Vol] Ordered By: Franc Barlow on 11-17-2024 Basophils (Bld) [#/Vol] Automated basophil count 0.0-0.2 [facility] Basophils/100 WBC Auto (Bld) Ordered By: Franc Barlow on 11-17-2024 Basophils/100 WBC (Bld) Automated basophil % . [facility] Calcium [Mass/volume] in Ser um or PlasmaOrdered By: Franc Barlow on 11-17-2024 Calcium [Mass/Vol] Calcium [Mass/volume ] in Serum or Plasma 8.6-10.3 [facility] Carbon dioxide, total [Moles /volume] in Serum or PlasmaOrdered By: Franc Barlow on 11-17-2024 CO2 [Moles/Vol] Carbon dioxide, tota l [Moles/volume] in Serum or Plasma 21.0-31.0 [facility] Chloride [Moles/volume] in S mac or PlasmaOrdered By: Franc Barlow on 05-29-2025 Chloride [Moles/Vol] Chloride [Moles/vol ume] in Serum or Plasma 98-107 [facility] Complete Blood Count Auto Di ffon 11-17-2024 Basophils (Bld) [#/Vol] 0.1 10*3/uL Normal 0.0-0.2 [facility] Comment on above: Result Comment: PERF ORMED BY: [place] [address] PATHOLOGIST TELEPHONE LINES REPAIRER KANDACE CANTU M.D. Performed By: #### C BC #### [address] Basophils/100 WBC (Bld) 1.4 % Normal . [facility] Comment on above: Performed By: #### C BC #### [address] Eosinophils (Bld) [#/Vol] 0.1 10*3/uL Normal 0.0-0.45 [facility] Comment on above: Performed By: #### C BC #### [address] Eosinophils/100 WBC (Bld) 2.4 % Normal . [facility] Comment on above: Performed By: #### C BC #### [address] Erythrocyte distribution width (RBC) [Ratio] 13.7 % Normal 11.9-15.3 [facility] Comment on above: Performed By: #### C BC #### [address] Hematocrit (Bld) [Volume fraction] 40.0 % Normal 34.0-46.4 [facility] Comment on above: Performed By: #### C BC #### [address] Hemoglobin (Bld) [Mass/Vol] 14.0 g/dL Normal 11.8-15.4 [facility] Comment on above: Performed By: #### C BC #### [address] Lymphocytes (Bld) [#/Vol] 1.2 10*3/uL Normal 1.00-4.8 [facility] Comment on above: Performed By: #### C BC #### [address] Lymphocytes/100 WBC (Bld) 30.9 % Normal . [facility] Comment on above: Performed By: #### C BC #### [address] MCH (RBC) [Entitic mass] 34.4 pg High 24.7-34.3 [facility] Comment on above: Performed By: #### C BC #### [address] MCV (RBC) [Entitic vol] 98.0 fL Normal 80-100 [facility] Comment on above: Performed By: #### C BC #### [address] Mean Corpuscular HGB Conc 35.1 g/dL High 32.0-35.0 [facility] Comment on above: Performed By: #### C BC #### [address] Monocytes (Bld) [#/Vol] 0.5 10*3/uL Normal 0.0-0.8 [facility] Comment on above: Performed By: #### C BC #### [address] Monocytes/100 WBC (Bld) 12.7 % Normal . [facility] Comment on above: Performed By: #### C BC #### [address] Neutrophils (Bld) [#/Vol] 2.1 10*3/uL Normal 1.8-7.7 [facility] Comment on above: Performed By: #### C BC #### [address] Neutrophils/100 WBC (Bld) 52.6 % Normal . [facility] Comment on above: Performed By: #### C BC #### [address] NRBC% 0.1 /100{WBC} Normal 0-0.5 [facility] Comment on above: Performed By: #### C BC #### [address] Platelet mean volume (Bld) [Entitic vol] 7.0 fL Normal 6.3-10.7 [facility] Comment on above: Performed By: #### C BC #### [address] Platelets (Bld) [#/Vol] 199 10*3/uL Normal 150-450 [facility] Comment on above: Performed By: #### C BC #### [address] RBC (Bld) [#/Vol] 4.08 10*6/uL Normal 3.60-5.00 [facility] Comment on above: Performed By: #### C BC #### [address] WBC (Bld) [#/Vol] 3.9 10*3/uL Normal 3.8-11.6 [facility] Comment on above: Performed By: #### C BC #### [address] Creatinine [Mass/volume] in Serum or PlasmaOrdered By: Franc Barlow on 11-17-2024 Creatinine [Mass/Vol] Creatinine [Mass/v olume] in Serum or Plasma 0.60-1.20 [facility] ECG 12 lead ECGon 11-17-2024 ECG 12 lead ECG [facility] [place] [address] [place] [address] Electrocardiograph Report Signed Patient: Maricarmen Anderson MR#: [id number] : 1980 Acct:[id number] Age/Sex: 44 / F ADM Date: 11/17/24 Loc: [place] Room: Type: [facility] Attending Dr: Gaurav Oliver MD Ordering Provider: [...] are now present Confirmed by Palomo Manzo ([id number]) on 11/17/2024 7:13:41 PM Referred By: Electronically Signed By: Palomo Manzo Transcribed By: MUS Signed By Palomo Manzo MD 11/17/241912 Normal [facility] Eosinophils Auto (Bld) [#/Vo l]Ordered By: Franc Barlow on 11-17-2024 Eosinophils (Bld) [#/Vol] Automated eosinophil count 0.0-0.45 [facility] Eosinophils/100 WBC Auto (Bl d)Ordered By: Franc Barlow on 11-17-2024 Eosinophils/100 WBC (Bld) Automated eosinophil % . [facility] Erythrocyte distribution wid th Auto (RBC) [Ratio]Ordered By: Franc Barlow on 11-17-2024 Erythrocyte distribution width (RBC) [Ratio] Erythrocyte distribution width [Ratio] by Automated count 11.9-15.3 [facility] Glucose [Mass/volume] in Ser um or PlasmaOrdered By: Franc Barlow on 11-17-2024 Glucose [Mass/Vol] Glucose [Mass/volume ] in Serum or Plasma 70-100 [facility] Comment on above: ADA recommended refe rence rangeRandom Glucose Reference Range is dependent on time and content of last meal. Glucose of more than 200 mg/dL in a nonstressed, ambulatory subject supports the diagnosis of Diabetes Mellitus. HCG ( test) IA.rapi d Ql (U)Ordered By: Franc Barlow on 11-17-2024 HCG ( test) Ql (U) Urine human chorionic gonadotropin (hCG) detection by immunoassay [facility] HCG,Urineon 11-17-2024 Beta HCG ( test) Ql (U) Negative Normal [facility] Comment on above: Result Comment: PERF ORMED BY: [place] [address] PATHOLOGIST TELEPHONE LINES REPAIRER KANDACE CANTU M.D. Performed By: #### U HCG #### [address] Hematocrit Auto (Bld) [Volum e fraction]Ordered By: Franc Barlow on 11-17-2024 Hematocrit (Bld) [Volume fraction] Hematocrit [Volume Fraction] of Blood by Automated count 34.0-46.4 [facility] Hemoglobin [Mass/volume] in BloodOrdered By: Franc Barlow on 11-17-2024 Hemoglobin (Bld) [Mass/Vol] Hemoglobin [Mass/volume] in Blood 11.8-15.4 [facility] INR in Platelet poor plasma by Coagulation assayOrdered By: Franc Barlow on 11-17-2024 INR Coag (PPP) [Relative time] INR in Platelet poor plasma by Coagulation assay [facility] Comment on above: INR Therapeutic Rang [...] - 4.5 Roni 11-17-2024 L ----- Specimen: [id number] Received: 11/17/24 Status: ABRAM Fox Num: [id number] Spec Type: Surgical Subm Dr: Gaurav Oliver MD Tissues: A Gross Only (INFUSAPORT) Procedures: Level 1 Gross Age/ Patient Sex Location Account Attending Physician Maricarmen Anderson 44/F [place] [id number] Gaurav Oliver MD SPEC NUM: [id number] RECD: 11/17/24 STATUS: ABRAM CADENARadha NUM: [id number] ALEN: 11/17/240000 SUBM DR: Gaurav Oliver MD ENTERED: 11/17/24 [facility] DR: CECILIO TYPE: Surgical DEPT: S ENTERED BY: [id number] RECV BY: [id number] ORDERED: Level 1 Gross ORDERED: Level 1 Gross Pathological Diagnosis Replacement removal of the nonfunctioning medical educator: -An Intact piece of Tljrav-l-Mtmn. Gross only examination Clinical Information Nonfunctioning Hhhbdk-f-Kcfv Gross Description Part A is received fresh labeled with the patients name, date of , and Bnvhph-v-Bdzi is a white, plastic like disc, 2.2 cm in diameter by 1.1 cm in thickness. 1 surface of the specimen displays a rubbery, translucent, somewhat depressible center, 0.9 cm in diameter that is engraved CT . The opposing surface of the specimen is engraved PORT-A-CATH [id number] . Extending from the disc is a cylindrical segment of white rubbery tubing, 25 cm in length by 0.3 cm in diameter that is engraved with the numerals 10 and 20. GROSS ONLY- Gross photographs are taken Specimen: [id number] Received: 11/17/24 Status: ABRAM Fox Num: [id number] Spec Type: Surgical Subm Dr: Gaurav Oliver MD Tissues: A Gross Only (INFUSAPORT) Procedures: Level 1 Gross Patient: Maricarmen Anderson [id number] (Continued) Specimen: [id number] Received: 11/17/24 (Continued) Signed (signature on file) Jose Rivers MD 11/18/24 1421 Specimen: [id number] Received: 11/17/24 Status: ABRAM Fox Num: [id number] Spec Type: Surgical Subm Dr: Gaurav Oliver MD Tissues: A Gross Only (INFUSAPORT) Procedures: Level 1 Gross Patient: Maricarmen Anderson [id number] (Continued) Specimen: [id number] Received: 11/17/24 (Continued) Microscopic Description Not provided CPT Codes 59016 GROSS PHOTO GROSS PHOTO Specimen: [id number] Received: 11/17/24-1313 Status: ABRAM Fox Num: [id number] Spec Type: Surgical Subm Dr: Gaurav Oliver MD Tissues: A Gross Only (INFUSAPORT) Procedures: Level 1 Gross Patient: Maricarmen Anderson [id number] (Continued) Signed (signature on file) Jose Rivers MD 11/18/24 1421 Normal [facility] Leukocytes [#/volume] correc nneka for nucleated erythrocytes in Blood by Automated counOrdered By: Franc Barlow on 11-17-2024 WBC corrected for nucl RBC Auto (Bld) [#/Vol] Leukocytes [#/volume] corrected for nucleated erythrocytes in Blood by Automated coun 3.8-11.6 [facility] Lymphocytes Auto (Bld) [#/Vo l]Ordered By: Franc Barlow on 11-17-2024 Lymphocytes (Bld) [#/Vol] Lymphocytes [#/volume] in Blood by Automated count 1.00-4.8 [facility] Lymphocytes/100 WBC Auto (Bl d)Ordered By: Franc Barlow on 11-17-2024 Lymphocytes/100 WBC (Bld) Lymphocytes/100 leukocytes in Blood by Automated count . [facility] MCH Auto (RBC) [Entitic mass ]Ordered By: Franc Barlow on 11-17-2024 MCH (RBC) [Entitic mass] MCH [Entitic mass] by Automated count High 24.7-34.3 [facility] MCHC Auto (RBC) [Mass/Vol]Or dered By: Franc Barlow on 11-17-2024 MCHC (RBC) [Mass/Vol] MCHC [Mass/volume] by Automated count High 32.0-35.0 [facility] MCV Auto (RBC) [Entitic vol] Ordered By: Franc Barlow on 11-17-2024 MCV (RBC) [Entitic vol] MCV [Entitic volume] by Automated count 80-100 [facility] Monocytes Auto (Bld) [#/Vol] Ordered By: Franc Barlow on 11-17-2024 Monocytes (Bld) [#/Vol] Automated blood monocyte count 0.0-0.8 [facility] Monocytes/100 WBC Auto (Bld) Ordered By: Franc Barlow on 11-17-2024 Monocytes/100 WBC (Bld) Automated monocyte % . [facility] Neutrophils Auto (Bld) [#/Vo l]Ordered By: Franc Barlow on 11-17-2024 Neutrophils (Bld) [#/Vol] Neutrophils [#/volume] in Blood by Automated count 1.8-7.7 [facility] Neutrophils/100 WBC Auto (Bl d)Ordered By: Franc Barlow on 11-17-2024 Neutrophils/100 WBC (Bld) Automated neutrophil % . [facility] No Panel InformationOrdered By: Franc Barlow on 11-17-2024 Estimated GFR (CKD-EPI) > 60.0 mL/Min [facility] Creatinine Clearance (Chem 104.07 [facility] Nucleated erythrocytes [Pres ence] in Blood by Automated countOrdered By: Franc Barlow on 11-17-2024 Nucleated RBC Auto Ql (Bld) Nucleated erythrocytes [Presence] in Blood by Automated count 0-0.5 [facility] Partial Thromboplastin Timeo n 11-17-2024 aPTT Coag (Bld) [Time] 25.8 s Normal 25.1-36.5 [facility] Comment on above: Result Comment: A he matocrit value greater than 55% may lead to inaccurate results in coagulation testing. Patients having hematocrit values >55% require a special collection tube for coagulation studies. Please contact the laboratory at [phone] for redraw instructions. PERFORMED BY: [place] [address] PATHOLOGIST TELEPHONE LINES REPAIRER KANDACE CANTU M.D. Performed By: #### B MP, PT, PTT #### [facility] [address] [place] [address] Platelet mean volume Auto (B ld) [Entitic vol]Ordered By: Franc Barlow on 11-17-2024 Platelet mean volume (Bld) [Entitic vol] Platelet mean volume [Entitic volume] in Blood by Automated count 6.3-10.7 [facility] Platelets Auto (Bld) [#/Vol] Ordered By: Franc Barlow on 11-17-2024 Platelets (Bld) [#/Vol] Platelets [#/volume] in Blood by Automated count 150-450 [facility] Potassium [Moles/volume] in Serum or PlasmaOrdered By: Franc Barlow on 11-17-2024 Potassium [Moles/Vol] Potassium [Moles/v olume] in Serum or Plasma 3.5-5.1 [facility] Prothrombin Time INRon 11-17 INR Coag [...] By: #### B MP, PT, PTT #### [facility] [address] [place] [address] [facility] PT Coag (PPP) [Time] 13.1 s High 9.0-12.9 [facility] Comment on above: Result Comment: A he matocrit value greater than 55% may lead to inaccurate results in coagulation testing. Patients having hematocrit values >55% require a special collection tube for coagulation studies. Please contact the laboratory at [phone] for redraw instructions. Performed By: #### B MP, PT, PTT #### [facility] [address] [place] [address] [facility] Prothrombin time (PT)Ordered By: Franc Barlow on 11-17-2024 PT Coag (PPP) [Time] Prothrombin time (PT) High 9.0- 12.9 [facility] Comment on above: A hematocrit value g reater than 55% may lead to inaccurate results in coagulation testing. Patients having hematocrit values >55% require a special collection tube for coagulation studies. Please contact the laboratory at [phone] for redraw instructions. RBC Auto (Bld) [#/Vol]Ordere d By: Franc Barlow on 11-17-2024 RBC (Bld) [#/Vol] Erythrocytes [#/volu me] in Blood by Automated count 3.60-5.00 [facility] Serum or plasma anion gap de terminationOrdered By: Franc Barlow on 11-17-2024 Anion gap [Moles/Vol] Serum or plasma an ion gap determination 6.0-15.0 [facility] Sodium [Moles/volume] in Ser um or PlasmaOrdered By: Franc Barlow on 11-17-2024 Sodium [Moles/Vol] Sodium [Moles/volume ] in Serum or Plasma 136-145 [facility] Urea nitrogen [Mass/volume] in Serum or PlasmaOrdered By: Franc Barlow on 11-17-2024 Urea nitrogen [Mass/Vol] Urea nitrogen [Mass/volume] in Serum or Plasma 7-25 [facility] WBC Auto (Bld) [#/Vol]Ordere d By: Franc Barlow on 11-17-2024 WBC (Bld) [#/Vol] Leukocytes [#/volume ] in Blood by Automated count 3.8-11.6 [facility] X-ray reportOrdered By: Adam Escamilla on 11-17-2024 Study report [facility] Main [address] [address] XRay Report Signed Patient: Maricarmen Anderson MR#: [id number] : 1980 Acct:[id number] Age/Sex: 44 / F ADM Date: 5 Loc: [place] Room: Type: [facility] Attending Dr: Gaurav Oliver MD Copies to: Gaurav Oliver MD~ Ordering Provider: Gaurav Oliver MD Date of Service: 11/17/24 XR/XR chest 1V portable: POST INFUSAPORT EXCHANGE RIGHT SIDE XR chest 1V portable 11/17/2024 1:04 PM SIGNS AND SYMPTOMS: ^POST INFUSAPORT EXCHANGE RIGHT SIDE PROTOCOL: Frontal radiograph the chest COMPARISON: 12/19/2022 FINDINGS: The trachea is midline. There is a new right-sided Rxvlgn-w-Gcyy is present with the tip in the superior vena cava. There is no pneumothorax. There is a dual lead pacer device on the left. The heart and mediastinal structures are within normal limits. The lung parenchyma is clear. The bony thorax is intact. XR/XR chest 1V portable IMPRESSION: There is a new right-sided Qtjubi-j-Pwxo is present with the tip in the superiorvena cava. There is no pneumothorax. Impression dictated by: Adam Escamilla M.D. 11/17/2024 1:19 PM Dictation Location: [facility]- Transcribed By: [facility] 11/17/24 1319 Dictated By: Adam Escamilla II, MD 11/17/24 1317 Signed By: 11/17/24 1319 [facility] Work Phone: XR chest 1V portableon 11-17 XR chest 1V portable [facility] Main [address] [address] XRay Report Signed Patient: Maricarmen Anderson MR#: [id number] : 1980 Acct:[id number] Age/Sex: 44 / F ADM Date: 11/17/24 Loc: [place] Room: Type: [facility] Attending Dr: Gaurav Oliver MD Copies to: Gaurav Oliver MD Ordering Provider: Gaurav Oliver MD Date of Service: 11/17/24 XR/XR chest 1V portable: POST INFUSAPORT EXCHANGE RIGHT SIDE XR chest 1V portable 11/17/2024 1:04 PM SIGNS AND SYMPTOMS: POST INFUSAPORT EXCHANGE RIGHT SIDE PROTOCOL: Frontal radiograph the chest COMPARISON: 12/19/2022 FINDINGS: The trachea is midline. There is a new right-sided Mbfjke-v-Wlrp is present with the tip in the superior vena cava. There is no pneumothorax. There is a dual lead pacer device on the left. The heart and mediastinal structures are within normal limits. The lung parenchyma is clear. The bony thorax is intact. XR/XR chest 1V portable IMPRESSION: There is a new right-sided Tdmxtb-m-Ziko is present with the tip in the superior vena cava. There is no pneumothorax. Impression dictated by: Adam Escamilla M.D. 11/17/2024 1:19 PM Dictation Location: [place] [address] Transcribed By: [facility] 11/17/24 1319 Dictated By: Adam Escamilla II, MD 11/17/24 1317 Signed By: 11/17/24 1319 Normal [facility] aPTT in Platelet poor plasma by Coagulation assayOrdered By: Franc Barlow on 11-17-2024 aPTT Coag (PPP) [Time] Activated partial thromboplastin time (aPTT) in platelet poor plasma by coagulation a 25.1-36.5 [facility] Comment on above: A hematocrit value g reater than 55% may lead to inaccurate results in coagulation testing. Patients having hematocrit values >55% require a special collection tube for coagulation studies. Please contact the laboratory at [phone] for redraw instructions. Basophils Auto (Bld) [#/Vol] on 10-31-2024 Basophils (Bld) [#/Vol] Automated basophil count 0.0-0.1 [facility] Basophils/100 WBC Auto (Bld) on 10-31-2024 Basophils/100 WBC (Bld) Automated basophil % 0.2-2.0 [facility] Eosinophils/100 WBC Auto (Bl d)on 10-31-2024 Eosinophils/100 WBC (Bld) Automated eosinophil % Low 0.9-7.0 [facility] Erythrocyte distribution wid th Auto (RBC) [Ratio]on 10-31-2024 Erythrocyte distribution width (RBC) [Ratio] Erythrocyte distribution width [Ratio] by Automated count 11.0-15.0 [facility] Estimated glomerular filtrat ion rate (GFR) non- Americanon 10-31-2024 GFR/1.73 sq M.predicted among non-blacks MDRD (S/P/Bld) [Vol rate/Area] Estimated glomerular filtration rate (GFR) non- Low >=60 mL/min/1.73 m 2 [facility] Hematocrit Auto (Bld) [Volum e fraction]on 10-31-2024 Hematocrit (Bld) [Volume fraction] Hematocrit [Volume Fraction] of Blood by Automated count 36.0-48.0 [facility] Hemoglobin [Mass/volume] in Bloodon 10-31-2024 Hemoglobin (Bld) [Mass/Vol] Hemoglobin [Mass/volume] in Blood 12.0-16.0 [facility] Iron binding capacity [Mass/ volume] in Serum or Plasmaon 10-31-2024 Iron binding capacity [Mass/Vol] Iron binding capacity [Mass/volume] in Serum or Plasma 250.0-450.0 [facility] Iron saturation [Mass Fracti on] in Serum or Plasmaon 10-31-2024 Iron saturation [Mass fraction] Iron saturation [Mass Fraction] in Serum or Plasma [facility] Laboratory - Chemistry and C hemistry - challengeon 10-31-2024 Calcium [Mass/Vol] 8.8 mg/dL 8.5-10.1 [facility] Chloride [Moles/Vol] 104 mmol/L 98-107 [facility] CO2 [Moles/Vol] 28.6 mmol/L 21.0-32.0 [facility] Cobalamin (Vitamin B12) [Mass/Vol] 655 pg/mL [id number] [facility] Comment on above: Performed at: [facility] [id number] [place], [place] [id number] Director: Prabhakar Warren PhD, Phone: [phone] Creatinine [Mass/Vol] 1.06 mg/dL High 0.55-1.02 [facility] Ferritin [Mass/Vol] 136.0 ng/mL 8.0-252.0 [facility] GFR/1.73 sq M.predicted MDRD (S/P/Bld) [Vol rate/Area] mL/min/{1.73_m2} >=60 mL/min/1.73 m 2 [facility] Glucose [Mass/Vol] 132 mg/dL High 74-106 [facility] Iron [Mass/Vol] 59.0 ug/dL 50.0-170.0 [facility] Potassium [Moles/Vol] 3.3 mmol/L Low 3.5-5.1 [facility] Sodium [Moles/Vol] 137 mmol/L 136-145 [facility] Urea nitrogen [Mass/Vol] 8.0 mg/dL 7.0-18.0 [facility] Urea nitrogen/Creatinine [Mass ratio] 7.5 mg/mg [facility] Laboratory - Hematology and Cell countson 10-31-2024 Immature granulocytes/100 WBC (Bld) 0.0 % 0.0-0.5 [facility] Leukocytes [#/volume] correc nneka for nucleated erythrocytes in Blood by Automated counon 10-31-2024 WBC corrected for nucl RBC Auto (Bld) [#/Vol] Leukocytes [#/volume] corrected for nucleated erythrocytes in Blood by Automated coun Low 4.0-11.0 [facility] Lymphocytes Auto (Bld) [#/Vo l]on 10-31-2024 Lymphocytes (Bld) [#/Vol] Lymphocytes [#/volume] in Blood by Automated count Low 1.2-3.8 [facility] Lymphocytes/100 WBC Auto (Bl d)on 10-31-2024 Lymphocytes/100 WBC (Bld) Lymphocytes/100 leukocytes in Blood by Automated count 20.5-60.0 [facility] MCH Auto (RBC) [Entitic mass ]on 10-31-2024 MCH (RBC) [Entitic mass] MCH [Entitic mass] by Automated count 26.7-34.0 [facility] MCHC Auto (RBC) [Mass/Vol]on 10-31-2024 MCHC (RBC) [Mass/Vol] MCHC [Mass/volume] by Automated count 29.9-35.2 [facility] MCV Auto (RBC) [Entitic vol] on 10-31-2024 MCV (RBC) [Entitic vol] MCV [Entitic volume] by Automated count High 81.0-99.0 [facility] Monocytes Auto (Bld) [#/Vol] on 10-31-2024 Monocytes (Bld) [#/Vol] Automated blood monocyte count 0.3-0.8 [facility] Monocytes/100 WBC Auto (Bld) on 10-31-2024 Monocytes/100 WBC (Bld) Automated monocyte % High 1.7-12.0 [facility] Neutrophils Auto (Bld) [#/Vo l]on 10-31-2024 Neutrophils (Bld) [#/Vol] Neutrophils [#/volume] in Blood by Automated count Low 1.4-6.5 [facility] Neutrophils/100 WBC Auto (Bl d)on 10-31-2024 Neutrophils/100 WBC (Bld) Automated neutrophil % 43.0-75.0 [facility] No Panel Informationon 10-31 25-Hydroxy Vitamin D Total 39.3 ng/mL [facility] Comment on above: <20 ng/mL Vit D defi cient20-<30 ng/mL Vit D [id number] ng/mL Vit D sufficient>100 ng/mL Potential Toxicity Eosinophils # (Auto) 0.0 10 3/uL 0.0-0.7 [facility] Immature Granulocyte # (Auto) 0.00 10 3/uL 0.00-0.03 [facility] Platelet mean volume Auto (B ld) [Entitic vol]on 10-31-2024 Platelet mean volume (Bld) [Entitic vol] Platelet mean volume [Entitic volume] in Blood by Automated count 9.5-13.5 [facility] Platelets Auto (Bld) [#/Vol] on 10-31-2024 Platelets (Bld) [#/Vol] Platelets [#/volume] in Blood by Automated count Low 150-450 [facility] RBC Auto (Bld) [#/Vol]on RBC (Bld) [#/Vol] Erythrocytes [#/volu me] in Blood by Automated count Low 4.20-5.40 [facility] Serum or plasma anion gap de terminationon 10-31-2024 Anion gap [Moles/Vol] Serum or plasma an ion gap determination [facility] INR in Platelet poor plasma by Coagulation assayon 09-26-2024 INR Coag (PPP) [Relative time] INR in Platelet poor plasma by Coagulation assay [facility] Comment on above: DESIRED INR:2.0-3.0 CONDITIONS NOT LISTED BELOW2.5-3.5 FOR PROSTHETIC HEART VALVE REPLACEMENT2.5-3.5 RECURRENT THROMBOSIS No Panel Informationon 09-26 Human Chorionic Gonadotropin, Qual Negative NEGATIVE [facility] Prothrombin time (PT)on PT Coag (PPP) [Time] Prothrombin time (PT) High 9.0- 11.6 [facility] MR cervical spine wo conon 0 08-31-2024 MR cervical spine wo [place] [address] MRI Report Signed Patient: Maricarmen Anderson MR#: [id number] : 1980 Acct:[id number] Age/Sex: 43 / F ADM Date: 08/31/24 Loc: Room: Type: [facility] Attending Dr: Tete Snell MD Copies [...] Praful Manley M.D.08/31/2024 10:20 AM Dictation Location: [place] [address] Transcribed By: [facility] 08/31/24 1020 Dictated By: Praful Manley MD 08/31/24 0947 Signed By: 08/31/24 1020 Normal [facility] Magnetic resonance imaging r eportOrdered By: Praful Manley on 08-31-2024 Study report [facility] [address] [place] [address] MRI Report Signed Patient: Maricarmen Anderson MR#: [id number] : 1980 Acct:[id number] Age/Sex: 43 / F ADM Date: 5 Loc: MR Room: Type: [facility] Attending Dr: Tete Snell MD Copies [...] Praful Manley M.D.08/31/2024 10:20 AM Dictation Location: [place] [address] Transcribed By: [facility] 08/31/24 1020 Dictated By: Praful Manley MD 08/31/24 0947 Signed By: 08/31/24 1020 [facility] Work Phone: INR in Platelet poor plasma by Coagulation assayon 07-11-2024 INR Coag (PPP) [Relative time] INR in Platelet poor plasma by Coagulation assay [facility] Comment on above: DESIRED INR:2.0-3.0 CONDITIONS NOT LISTED BELOW2.5-3.5 FOR PROSTHETIC HEART VALVE REPLACEMENT2.5-3.5 RECURRENT THROMBOSIS No Panel Informationon 07-11 Human Chorionic Gonadotropin, Qual Negative NEGATIVE [facility] Prothrombin time (PT)on 06-23 PT Coag (PPP) [Time] Prothrombin time (PT) 9.0- 11.6 [facility] Basophils Auto (Bld) [#/Vol] on 07-05-2024 Basophils (Bld) [#/Vol] Automated basophil count 0.0-0.1 [facility] Basophils/100 WBC Auto (Bld) on 07-05-2024 Basophils/100 WBC (Bld) Automated basophil % 0.2-2.0 [facility] Eosinophils/100 WBC Auto (Bl d)on 07-05-2024 Eosinophils/100 WBC (Bld) Automated eosinophil % 0.9-7.0 [facility] Erythrocyte distribution wid th Auto (RBC) [Ratio]on 07-05-2024 Erythrocyte distribution width (RBC) [Ratio] Erythrocyte distribution width [Ratio] by Automated count 11.0-15.0 [facility] Estimated glomerular filtrat ion rate (GFR) non- Americanon 07-05-2024 GFR/1.73 sq M.predicted among non-blacks MDRD (S/P/Bld) [Vol rate/Area] Estimated glomerular filtration rate (GFR) non- >=60 mL/min/1.73 m 2 [facility] Hematocrit Auto (Bld) [Volum e fraction]on 07-05-2024 Hematocrit (Bld) [Volume fraction] Hematocrit [Volume Fraction] of Blood by Automated count 36.0-48.0 [facility] Hemoglobin [Mass/volume] in Bloodon 07-05-2024 Hemoglobin (Bld) [Mass/Vol] Hemoglobin [Mass/volume] in Blood 12.0-16.0 [facility] Iron binding capacity [Mass/ volume] in Serum or Plasmaon 07-05-2024 Iron binding capacity [Mass/Vol] Iron binding capacity [Mass/volume] in Serum or Plasma 250.0-450.0 [facility] Iron saturation [Mass Fracti on] in Serum or Plasmaon 07-05-2024 Iron saturation [Mass fraction] Iron saturation [Mass Fraction] in Serum or Plasma [facility] Laboratory - Chemistry and C hemistry - challengeon 07-05-2024 Calcium [Mass/Vol] 9.2 mg/dL 8.5-10.1 [facility] Chloride [Moles/Vol] 105 mmol/L 98-107 [facility] CO2 [Moles/Vol] 28.3 mmol/L 21.0-32.0 [facility] Cobalamin (Vitamin B12) [Mass/Vol] 617 pg/mL 232-1245 [facility] Comment on above: Performed at: [facility] - [facility] [id number] [place], [place] [id number] Director: Prabhakar Warren PhD, Phone: [phone] Creatinine [Mass/Vol] 0.94 mg/dL 0.55-1.02 [facility] Ferritin [Mass/Vol] 76.0 ng/mL 8.0-252.0 [facility] GFR/1.73 sq M.predicted MDRD (S/P/Bld) [Vol rate/Area] mL/min/{1.73_m2} >=60 mL/min/1.73 m 2 [facility] Glucose [Mass/Vol] 96 mg/dL 74-106 [facility] Iron [Mass/Vol] 116.0 ug/dL 50.0-170.0 [facility] Potassium [Moles/Vol] 4.3 mmol/L 3.5-5.1 [facility] Sodium [Moles/Vol] 143 mmol/L 136-145 [facility] Urea nitrogen [Mass/Vol] 11.0 mg/dL 7.0-18.0 [facility] Urea nitrogen/Creatinine [Mass ratio] 11.7 mg/mg [facility] Laboratory - Hematology and Cell countson 07-05-2024 Immature granulocytes/100 WBC (Bld) 0.2 % 0.0-0.5 [facility] Leukocytes [#/volume] correc nneka for nucleated erythrocytes in Blood by Automated counon 07-05-2024 WBC corrected for nucl RBC Auto (Bld) [#/Vol] Leukocytes [#/volume] corrected for nucleated erythrocytes in Blood by Automated coun 4.0-11.0 [facility] Lymphocytes Auto (Bld) [#/Vo l]on 07-05-2024 Lymphocytes (Bld) [#/Vol] Lymphocytes [#/volume] in Blood by Automated count 1.2-3.8 [facility] Lymphocytes/100 WBC Auto (Bl d)on 07-05-2024 Lymphocytes/100 WBC (Bld) Lymphocytes/100 leukocytes in Blood by Automated count 20.5-60.0 [facility] MCH Auto (RBC) [Entitic mass ]on 07-05-2024 MCH (RBC) [Entitic mass] MCH [Entitic mass] by Automated count High 26.7-34.0 [facility] MCHC Auto (RBC) [Mass/Vol]on 07-05-2024 MCHC (RBC) [Mass/Vol] MCHC [Mass/volume] by Automated count 29.9-35.2 [facility] MCV Auto (RBC) [Entitic vol] on 07-05-2024 MCV (RBC) [Entitic vol] MCV [Entitic volume] by Automated count High 81.0-99.0 [facility] Main OR Intraoperative Recor don 07-05-2024 Main OR Intraoperative Record Main OR Intraoperative Record IntraOp Document Type FTURO Summary Primary Physician: Michael VIVEROS MD Finalized Date/Time: 07/05/24 13:38:20 Pt. Name: JUSTIN MARICARMEN Luu./Sex: 1980 Female Med Rec #: [id number] Physician: Michael VIVEROS MD Financial #: [id number] Pt. Type: O Room/Bed: / Admit/Disch: 07/05/24 12:41:15 - Institution: Case Times FTURO Entry 1 Patient Times In Room 07/05/24 13:26:00 Out Room 07/05/24 13:38:00 Procedure Times Start 07/05/24 13:32:00 Stop 07/05/24 13:35:00 Anesthesia Times Last Modified By: Jolie Caldwell 07/05/24 13:38:10 Case Attendance FTURO Entry 1 Entry 2 Entry 3 Case Attendee Michael VIVEROS MD, Kelsie E McClain CST, Kimberly A Role Performed Surgeon - Primary Account Manager [employer] - Primary Scrub - Primary Time In [...] Prep Agents Betadine Solution Skin. Condition Intact, Yoder, Warm, & Description N/A Dry Additional None [...] 07/05/24 13:38 Jolie Caldwell 07/05/24 13:38 Normal [facility] Main OR Preoperative Recordo n 07-05-2024 Main OR Preoperative Record Main OR Preoperative Record Holding Area Document Type FTURO Summary Primary Physician: Michael VIVEROS MD Finalized Date/Time: 07/05/24 13:21:29 Pt. Name: ANYMULizMARICARMEN/Sex: 1980 Female Med Rec #: [id number] Physician: Michael VIVEROS MD Financial #: [id number] Pt. Type: O Room/Bed: / Admit/Disch: 07/05/24 [...] Complaints of Pain: No Skin Integrity Intact, Yoder, Warm, & Dry Vitals - EU Blood Pressure 112/72 Pulse 67 bpm Respirations 18 br/min SPO2 98 % Additional None RN Reviewed Yes Specimens Collected Last Modified By: Jolie Caldwell 07/05/24 13:20:55 Finalized By: Jolie Caldwell Document Signatures Signed By: Jolie Caldwell 07/05/24 13:21 Jolie Caldwell 07/05/24 13:21 Jolie Caldwell 07/05/24 13:21 Jolie Caldwell 07/05/24 13:20 BullGabriella segura LPN 07/05/24 13:09 Jolie Caldwell 07/05/24 13:21 Normal [facility] Monocytes Auto (Bld) [#/Vol] on 07-05-2024 Monocytes (Bld) [#/Vol] Automated blood monocyte count 0.3-0.8 [facility] Monocytes/100 WBC Auto (Bld) on 07-05-2024 Monocytes/100 WBC (Bld) Automated monocyte % 1.7-12.0 [facility] Neutrophils Auto (Bld) [#/Vo l]on 07-05-2024 Neutrophils (Bld) [#/Vol] Neutrophils [#/volume] in Blood by Automated count 1.4-6.5 [facility] Neutrophils/100 WBC Auto (Bl d)on 07-05-2024 Neutrophils/100 WBC (Bld) Automated neutrophil % 43.0-75.0 [facility] No Panel Informationon 07-05 25-Hydroxy Vitamin D Total 31.2 ng/mL [facility] Comment on above: <20 ng/mL Vit D defi cient20-<30 ng/mL Vit D [id number] ng/mL Vit D sufficient>100 ng/mL Potential Toxicity Eosinophils # (Auto) 0.1 10 3/uL 0.0-0.7 [facility] Immature Granulocyte # (Auto) 0.01 10 3/uL 0.00-0.03 [facility] Operative Reporton Operative Report Operative Report [...] up arranged. Urethra was dilated from 22-30 [place] with Pavel sounds. Normal [facility] Comment on above: Result Comment: Elec tronically Signed By: Michael VIVEROS MD\.br\Date and Time Signed: 07/05/24 13:40 EST Platelet mean volume Auto (B ld) [Entitic vol]on 07-05-2024 Platelet mean volume (Bld) [Entitic vol] Platelet mean volume [Entitic volume] in Blood by Automated count 9.5-13.5 [facility] Platelets Auto (Bld) [#/Vol] on 07-05-2024 Platelets (Bld) [#/Vol] Platelets [#/volume] in Blood by Automated count 150-450 [facility] RBC Auto (Bld) [#/Vol]on RBC (Bld) [#/Vol] Erythrocytes [#/volu me] in Blood by Automated count Low 4.20-5.40 [facility] Serum or plasma anion gap de terminationon 07-05-2024 Anion gap [Moles/Vol] Serum or plasma an ion gap determination [facility] CT abdomen pelvis w conon CT abdomen pelvis w [place] [address] CT Scan Report Signed Patient: Maricarmen Anderson MR#: [id number] : 1980 Acct:[id number] Age/Sex: 43 / F ADM Date: 07/04/24 Loc: CT Room: Type: [facility] Attending Dr: Michael Viveros MD Copies [...] Oro Jr., D.O.07/04/2024 2:58 PM Dictation Location: [place] [address] Transcribed By: RAFA 07/04/241457 Dictated By: Mitchel Oro Jr, DO 07/04/241454 Signed By: 07/04/241457 Normal [facility] Basophils Auto (Bld) [#/Vol] on 06-02-2024 Basophils (Bld) [#/Vol] Automated basophil count 0.0-0.1 [facility] Basophils/100 WBC Auto (Bld) on 06-02-2024 Basophils/100 WBC (Bld) Automated basophil % 0.2-2.0 [facility] Cholesterol in LDL Calc [Mas s/Vol]on 06-02-2024 Cholesterol in LDL [Mass/Vol] Cholesterol in LDL [Mass/volume] in Serum or Plasma by calculation [facility] Comment on above: <100 mg/dl [id number] 0-129 mg/dl NEAR OR ABOVE [id number] mg/dl BORDERLINE [id number] mg/dl HIGH>190 mg/dl VERY HIGH Cholesterol in VLDL Calc [Ma ss/Vol]on 06-02-2024 Cholesterol in VLDL [Mass/Vol] Cholesterol in VLDL [Mass/volume] in Serum or Plasma by calculation [facility] Eosinophils/100 WBC Auto (Bl d)on 06-02-2024 Eosinophils/100 WBC (Bld) Automated eosinophil % 0.9-7.0 [facility] Erythrocyte distribution wid th Auto (RBC) [Ratio]on 06-02-2024 Erythrocyte distribution width (RBC) [Ratio] Erythrocyte distribution width [Ratio] by Automated count 11.0-15.0 [facility] Estimated glomerular filtrat ion rate (GFR) non- Americanon 06-02-2024 GFR/1.73 sq M.predicted among non-blacks MDRD (S/P/Bld) [Vol rate/Area] Estimated glomerular filtration rate (GFR) non- Low >=60 mL/min/1.73 m 2 [facility] Glucose mean value [Mass/vol ume] in Blood Estimated from glycated hemoglobinon 06-02-2024 Average glucose Estimated from glycated hemoglobin (Bld) [Mass/Vol] Glucose mean value [Mass/volume] in Blood Estimated from glycated hemoglobin [facility] Hematocrit Auto (Bld) [Volum e fraction]on 06-02-2024 Hematocrit (Bld) [Volume fraction] Hematocrit [Volume Fraction] of Blood by Automated count 36.0-48.0 [facility] Hemoglobin [Mass/volume] in Bloodon 06-02-2024 Hemoglobin (Bld) [Mass/Vol] Hemoglobin [Mass/volume] in Blood 12.0-16.0 [facility] Iron binding capacity [Mass/ volume] in Serum or Plasmaon 06-02-2024 Iron binding capacity [Mass/Vol] Iron binding capacity [Mass/volume] in Serum or Plasma 250.0-450.0 [facility] Iron saturation [Mass Fracti on] in Serum or Plasmaon 06-02-2024 Iron saturation [Mass fraction] Iron saturation [Mass Fraction] in Serum or Plasma [facility] Laboratory - Chemistry and C hemistry - challengeon 06-02-2024 Calcium [Mass/Vol] 9.1 mg/dL 8.5-10.1 [facility] Chloride [Moles/Vol] 105 mmol/L 98-107 [facility] Cholesterol [Mass/Vol] 186 mg/dL <=200 [facility] Cholesterol in HDL [Mass/Vol] 72 mg/dL High 40-60 [facility] Comment on above: > or =60 mg/dl - LOW CARDIOVASCULAR RISK<40 mg/dl - HIGH CARDIOVASCULAR RISK CO2 [Moles/Vol] 29.9 mmol/L 21.0-32.0 [facility] Cobalamin (Vitamin B12) [Mass/Vol] 241 pg/mL 232-1245 [facility] Comment on above: Performed at: - L [facility] [address] [id number] Director: Prabhakar Warren PhD, Phone: [phone] Creatinine [Mass/Vol] 1.16 mg/dL High 0.55-1.02 [facility] Ferritin [Mass/Vol] 78.0 ng/mL 8.0-252.0 [facility] GFR/1.73 sq M.predicted MDRD (S/P/Bld) [Vol rate/Area] mL/min/{1.73_m2} >=60 mL/min/1.73 m 2 [facility] Glucose [Mass/Vol] 101 mg/dL 74-106 [facility] Iron [Mass/Vol] 112.0 ug/dL 50.0-170.0 [facility] Potassium [Moles/Vol] 3.9 mmol/L 3.5-5.1 [facility] Sodium [Moles/Vol] 141 mmol/L 136-145 [facility] Triglyceride [Mass/Vol] 86 mg/dL <=150 [facility] Urea nitrogen [Mass/Vol] 7.0 mg/dL 7.0-18.0 [facility] Urea nitrogen/Creatinine [Mass ratio] 6.0 mg/mg [facility] Laboratory - Hematology and Cell countson 06-02-2024 HbA1c (Bld) [Mass fraction] 5.7 % 4.5-6.2 [facility] Comment on above: ADA RECOMMENDED LIMI T 4.0 - 6.0ADA THERAPEUTIC TARGET < 7.0ACTION SUGGESTED> 7.0 Immature granulocytes/100 WBC (Bld) 0.2 % 0.0-0.5 [facility] Leukocytes [#/volume] correc nneka for nucleated erythrocytes in Blood by Automated counon 06-02-2024 WBC corrected for nucl RBC Auto (Bld) [#/Vol] Leukocytes [#/volume] corrected for nucleated erythrocytes in Blood by Automated coun 4.0-11.0 [facility] Lymphocytes Auto (Bld) [#/Vo l]on 06-02-2024 Lymphocytes (Bld) [#/Vol] Lymphocytes [#/volume] in Blood by Automated count 1.2-3.8 [facility] Lymphocytes/100 WBC Auto (Bl d)on 06-02-2024 Lymphocytes/100 WBC (Bld) Lymphocytes/100 leukocytes in Blood by Automated count 20.5-60.0 [facility] MCH Auto (RBC) [Entitic mass ]on 06-02-2024 MCH (RBC) [Entitic mass] MCH [Entitic mass] by Automated count 26.7-34.0 [facility] MCHC Auto (RBC) [Mass/Vol]on 06-02-2024 MCHC (RBC) [Mass/Vol] MCHC [Mass/volume] by Automated count 29.9-35.2 [facility] MCV Auto (RBC) [Entitic vol] on 06-02-2024 MCV (RBC) [Entitic vol] MCV [Entitic volume] by Automated count 81.0-99.0 [facility] Monocytes Auto (Bld) [#/Vol] on 06-02-2024 Monocytes (Bld) [#/Vol] Automated blood monocyte count 0.3-0.8 [facility] Monocytes/100 WBC Auto (Bld) on 06-02-2024 Monocytes/100 WBC (Bld) Automated monocyte % 1.7-12.0 [facility] Neutrophils Auto (Bld) [#/Vo l]on 06-02-2024 Neutrophils (Bld) [#/Vol] Neutrophils [#/volume] in Blood by Automated count 1.4-6.5 [facility] Neutrophils/100 WBC Auto (Bl d)on 06-02-2024 Neutrophils/100 WBC (Bld) Automated neutrophil % 43.0-75.0 [facility] No Panel Informationon 06-02 25-Hydroxy Vitamin D Total 26.9 ng/mL [facility] Comment on above: <20 ng/mL Vit D defi cient20-<30 ng/mL Vit D [id number] ng/mL Vit D sufficient>100 ng/mL Potential Toxicity Eosinophils # (Auto) 0.2 10 3/uL 0.0-0.7 [facility] Immature Granulocyte # (Auto) 0.01 10 3/uL 0.00-0.03 [facility] Platelet mean volume Auto (B ld) [Entitic vol]on 06-02-2024 Platelet mean volume (Bld) [Entitic vol] Platelet mean volume [Entitic volume] in Blood by Automated count Low 9.5-13.5 [facility] Platelets Auto (Bld) [#/Vol] on 06-02-2024 Platelets (Bld) [#/Vol] Platelets [#/volume] in Blood by Automated count 150-450 [facility] RBC Auto (Bld) [#/Vol]on RBC (Bld) [#/Vol] Erythrocytes [#/volu me] in Blood by Automated count 4.20-5.40 [facility] Serum or plasma anion gap de terminationon 06-02-2024 Anion gap [Moles/Vol] Serum or plasma an ion gap determination [facility] Serum or plasma total choles terol/high density lipoprotein (HDL) cholesterol mass edu 06-02-2024 Cholesterol.total/Chol esterol in HDL [Mass ratio] Serum or plasma total cholesterol/high density lipoprotein (HDL) cholesterol mass rat [facility] Comment on above: 3.3 - 4.4 [...] 161 TODAY - 286ml. See #2. Ordered: [id number] Measure Post Void residual urine and/or bladder capacity by US- non-imaging Urnls Dip Stick Auto w/o Microscopy POC 11132 2. Urethral stricture (N35.919: Unspecified urethral stricture, [...] been obtained. Will order Local anesthesia. Ordered: [id number] Measure Post Void residual urine and/or bladder capacity by US- non-imaging Urnls Dip Stick Auto w/o Microscopy POC 58995 3. Renal mass (N28.89: Other specified disorders [...] accurate characterization). R kidney unremarkable. CRESCENCIO 05/30/24 FR - cystic changes with questionable kidney stones. Advised pt this read is not highly specific/helpful. Will have PRW review and advise if we need CT/MRI for better look at the complex cyst. Ordered: [id number] Measure Post Void residual urine and/or bladder capacity by US- non-imaging Urnls Dip Stick Auto w/o Microscopy POC 12824 4. 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 [address] Additional Instructions: Follow up schedule [...] 06/02/2024 Tobac (more content not included)... Normal [facility] Comment on above: Result Comment: Elec tronically Signed By: ESTELA CHUNG PA-C\.br\Date and Time Signed: 06/02/24 16:50 EST\.br\Electronically Co-Signed By: Shyann Yoo\.br\Date and Time Co-Signed: 06/02/24 15:54 EST US renal BIon 05-30-2024 US renal BI [facility] Main [address] [address] Ultrasound Report Signed Patient: Maricarmen Anderson MR#: [id number] : 1980 Acct:[id number] Age/Sex: 43 / F ADM Date: 05/30/24 Loc: Room: Type: [facility] Attending Dr: Estela Chung PA-C Ordering [...] Oro Jr., D.O.05/30/2024 6:31 PM Dictation Location: [facility] Tech: Gretanorma Reyes Transcribed By: RAFA 05/30/241830 Dictated By: Mitchel Oro Jr, DO 05/30/241828 Signed By: 05/30/24 183 Normal [facility] APTTon 10-31-2023 aPTT Coag (Bld) [Time] 139.6 s Critically high 23.0-36. 5 [facility] Comment on above: Result Comment: IV Heparin Therapy Range: 66.0-92.0 sec Performed By: #### P TT #### [place] [employer] Document Preparation [address] [place] [address] [phone] Funder: Breezy White MD CBCon 10-31-2023 Erythrocyte distribution width (RBC) [Ratio] 12.7 % Normal 11.8-14.4 [facility] Comment on above: Performed By: #### C BC #### [place] [employer] Document Preparation [address] [place] [id number] Funder: Breezy White MD Hematocrit (Bld) [Volume fraction] 36.5 % Normal 36.3-47.1 [facility] Comment on above: Performed By: #### C BC #### [address] [address] Funder: Breezy White MD Hemoglobin (Bld) [Mass/Vol] 12.0 g/dL Normal 11.9-15.1 [facility] Comment on above: Performed By: #### C BC #### [address] [address] Funder: Breezy White MD MCH (RBC) [Entitic mass] 31.9 pg Normal 25.2-33.5 [facility] Comment on above: Performed By: #### C BC #### [address] [address] Funder: Breezy White MD MCHC (RBC) [Mass/Vol] 32.9 g/dL Normal 28.4-34.8 [facility] Comment on above: Performed By: #### C BC #### [address] [address] Funder: Breezy White MD MCV (RBC) [Entitic vol] 97.1 fL Normal 82.6-102.9 [facility] Comment on above: Performed By: #### C BC #### [address] [address] Funder: Breezy White MD NRBC Automated 0.0 per 100 WBC Normal 0.0 [facility] Comment on above: Performed By: #### C BC #### [address] [address] Funder: Breezy White MD Platelet mean volume (Bld) [Entitic vol] 9.9 fL Normal 8.1-13.5 [facility] Comment on above: Performed By: #### C BC #### [address] [address] Funder: Breezy White MD Platelets (Bld) [#/Vol] 149 10*3/uL Normal 138-453 [facility] Comment on above: Performed By: #### C BC #### [address] [address] Funder: Breezy White MD RBC (Bld) [#/Vol] 3.76 10*6/uL Low 3.95-5.11 [facility] Comment on above: Performed By: #### C BC #### [address] [address] Funder: Breezy White MD WBC (Bld) [#/Vol] 5.0 10*3/uL Normal 3.5-11.3 [facility] Comment on above: Performed By: #### C BC #### [address] [address] Funder: Breezy White MD APTTon 2023 aPTT Coag (Bld) [Time] 59.7 s High 23.0-36.5 [facility] Comment on above: Result Comment: IV Heparin Therapy Range: 66.0-92.0 sec Performed By: #### P TT #### [address] [address] Funder: Breezy White MD aPTT Coag (Bld) [Time] 75.3 s High 23.0-36.5 [facility] Comment on above: Result Comment: IV Heparin Therapy Range: 66.0-92.0 sec Performed By: #### P TT #### [address] [address] Funder: Breezy White MD aPTT Coag (Bld) [Time] s Critically high 23.0-36. 5 [facility] Comment on above: Result Comment: IV Heparin Therapy Range: 66.0-92.0 sec Performed By: #### P TT #### [address] [address] Funder: Breezy White MD APTTon 10-29-2023 aPTT Coag (Bld) [Time] 22.0 s Low 23.0-36.5 [facility] Comment on above: Result Comment: IV Heparin Therapy Range: 66.0-92.0 sec Performed By: #### P TT, HEPXA, CDP, BMPX, PT #### [address] [id number] Funder: Breezy White MD Basic Metab w/rfx MGon 10-28 Anion gap [Moles/Vol] 12 mmol/L Normal 9-16 [facility] Comment on above: Performed By: #### P TT, HEPXA, CDP, BMPX, PT #### [address] [address] Funder: Breezy White MD Calcium [Mass/Vol] 8.9 mg/dL Normal 8.6-10.4 [facility] Comment on above: Performed By: #### P TT, HEPXA, CDP, BMPX, PT #### [address] [address] Funder: Breezy White MD Chloride [Moles/Vol] 105 mmol/L Normal 98-107 [facility] Comment on above: Performed By: #### P TT, HEPXA, CDP, BMPX, PT #### [address] [address] Funder: Breezy White MD CO2 [Moles/Vol] 22 mmol/L Normal 20-31 [facility] Comment on above: Performed By: #### P TT, HEPXA, CDP, BMPX, PT #### [address] [address] Funder: Breezy White MD Creatinine [Mass/Vol] 0.8 mg/dL Normal 0.50-0.90 [facility] Comment on above: Performed By: #### P TT, HEPXA, CDP, BMPX, PT #### [address] [address] Funder: Breezy White MD GFR/1.73 sq M.predicted among non-blacks MDRD (S/P/Bld) [Vol rate/Area] mL/min/{1.73_m2} Normal >60 [facility] Comment on above: Result Comment: These [...] P TT, HEPXA, CDP, BMPX, PT #### [address] [address] Funder: Breezy White MD Glucose [Mass/Vol] 82 mg/dL Normal 74-99 [facility] Comment on above: Performed By: #### P TT, HEPXA, CDP, BMPX, PT #### [address] [address] Funder: Breezy White MD Potassium [Moles/Vol] 4.0 mmol/L Normal 3.7-5.3 [facility] Comment on above: Performed By: #### P TT, HEPXA, CDP, BMPX, PT #### [address] [address] Funder: Breezy White MD Sodium [Moles/Vol] 139 mmol/L Normal 136-145 [facility] Comment on above: Performed By: #### P TT, HEPXA, CDP, BMPX, PT #### [address] [address] Funder: Breezy White MD Urea nitrogen [Mass/Vol] 10 mg/dL Normal 6-20 [facility] Comment on above: Performed By: #### P TT, HEPXA, CDP, BMPX, PT #### [address] [address] Funder: Breezy White MD CBC with Diffon 10-29-2023 Abs. Basophil <0.03 Normal 0.00-0.20 [facility] Comment on above: Performed By: #### P TT, HEPXA, CDP, BMPX, PT #### [address] [address] Funder: Breezy White MD Abs.Imm.Granulocyte <0.03 Normal 0.00-0.30 [facility] Comment on above: Performed By: #### P TT, HEPXA, CDP, BMPX, PT #### [address] [address] Funder: Breezy White MD Abs.Neutrophil (Seg) 2.93 k/uL Normal 1.50-8.10 [facility] Comment on above: Performed By: #### P TT, HEPXA, CDP, BMPX, PT #### [facility] [address] [place] [id number] Funder: Breezy White MD Basophils/100 WBC (Bld) 0 % Normal 0-2 [facility] Comment on above: Performed By: #### P TT, HEPXA, CDP, BMPX, PT #### [address] [address] Funder: Breezy White MD Eosinophils (Bld) [#/Vol] 0.08 10*3/uL Normal 0.00-0.44 [facility] Comment on above: Performed By: #### P TT, HEPXA, CDP, BMPX, PT #### [address] [address] Funder: Breezy White MD Eosinophils/100 WBC (Bld) 2 % Normal 1-4 [facility] Comment on above: Performed By: #### P TT, HEPXA, CDP, BMPX, PT #### [place] [address] Funder: Breezy White MD Erythrocyte distribution width (RBC) [Ratio] 12.8 % Normal 11.8-14.4 [facility] Comment on above: Performed By: #### P TT, HEPXA, CDP, BMPX, PT #### [place] [address] Funder: Breezy White MD Hematocrit (Bld) [Volume fraction] 38.6 % Normal 36.3-47.1 [facility] Comment on above: Performed By: #### P TT, HEPXA, CDP, BMPX, PT #### [place] [address] Funder: Breezy White MD Hemoglobin (Bld) [Mass/Vol] 12.5 g/dL Normal 11.9-15.1 [facility] Comment on above: Performed By: #### P TT, HEPXA, CDP, BMPX, PT #### [address] [address] Funder: Breezy White MD Immature granulocytes/100 WBC (Bld) 0 % Normal 0 [facility] Comment on above: Performed By: #### P TT, HEPXA, CDP, BMPX, PT #### [address] [address] Funder: Breezy White MD Lymphocytes (Bld) [#/Vol] 1.24 10*3/uL Normal 1.10-3.70 [facility] Comment on above: Performed By: #### P TT, HEPXA, CDP, BMPX, PT #### [address] [address] Funder: Breezy White MD Lymphocytes/100 WBC (Bld) 27 % Normal 24-43 [facility] Comment on above: Performed By: #### P TT, HEPXA, CDP, BMPX, PT #### [address] [address] Funder: Breezy White MD MCH (RBC) [Entitic mass] 31.9 pg Normal 25.2-33.5 [facility] Comment on above: Performed By: #### P TT, HEPXA, CDP, BMPX, PT #### [place] [address] Funder: Breezy White MD MCHC (RBC) [Mass/Vol] 32.4 g/dL Normal 28.4-34.8 [facility] Comment on above: Performed By: #### P TT, HEPXA, CDP, BMPX, PT #### [address] [address] Funder: Breezy White MD MCV (RBC) [Entitic vol] 98.5 fL Normal 82.6-102.9 [facility] Comment on above: Performed By: #### P TT, HEPXA, CDP, BMPX, PT #### [address] [address] Funder: Breezy White MD Monocytes (Bld) [#/Vol] 0.35 10*3/uL Normal 0.10-1.20 [facility] Comment on above: Performed By: #### P TT, HEPXA, CDP, BMPX, PT #### [address] [address] Funder: Breezy White MD Monocytes/100 WBC (Bld) 8 % Normal 3-12 [facility] Comment on above: Performed By: #### P TT, HEPXA, CDP, BMPX, PT #### [address] [address] Funder: Breezy White MD Neutrophil (Seg) 63 % Normal 36-65 [facility] Comment on above: Performed By: #### P TT, HEPXA, CDP, BMPX, PT #### [address] [address] Funder: Breezy White MD NRBC Automated 0.0 per 100 WBC Normal 0.0 [facility] Comment on above: Performed By: #### P TT, HEPXA, CDP, BMPX, PT #### [address] [address] Funder: Breezy White MD Platelet mean volume (Bld) [Entitic vol] 10.2 fL Normal 8.1-13.5 [facility] Comment on above: Performed By: #### P TT, HEPXA, CDP, BMPX, PT #### [facility] [address] [place] [phone] Funder: Breezy White MD Platelets (Bld) [#/Vol] 152 10*3/uL Normal 138-453 [facility] Comment on above: Performed By: #### P TT, HEPXA, CDP, BMPX, PT #### [address] [address] Funder: Breezy White MD RBC (Bld) [#/Vol] 3.92 10*6/uL Low 3.95-5.11 [facility] Comment on above: Performed By: #### P TT, HEPXA, CDP, BMPX, PT #### [address] [phone] Funder: Breezy White MD WBC (Bld) [#/Vol] 4.6 10*3/uL Normal 3.5-11.3 [facility] Comment on above: Performed By: #### P TT, HEPXA, CDP, BMPX, PT #### [address] [id number] Funder: Breezy White MD Heparin Anti-Xaon 10-29-2023 Heparin Anti-Xa 1.59 IU/L Normal [facility] Comment on above: Performed By: #### P TT, HEPXA, CDP, BMPX, PT #### [facility] [address] [place] [address] [phone] Funder: Breezy White MD Laboratory - Coagulationon 0 10-29-2023 aPTT Coag (Bld) [Time] 102.5 s 48.2-68.6 [facility] Comment on above: RESULTS CALLED TO YAMILE WAGNER RN @BY Tanja Jj at 0615 PTon 10-29-2023 INR Coag (PPP) [Relative time] 1.1 {INR} Normal [facility] Comment on above: Result Comment: Therapeutic Range: Moderate Anticoagulant Intensity: INR = 2.0-3.0 High Anticoagulant Intensity: INR = 2.5-3.5 Performed By: #### P TT, HEPXA, CDP, BMPX, PT #### [facility] [address] [place] [address] [phone] Funder: Breezy White MD PT Coag (PPP) [Time] 13.8 s Normal 11.7-14.9 [facility] Comment on above: Performed By: #### P TT, HEPXA, CDP, BMPX, PT #### [place] Self Representation Document Preparation [facility] [place] [phone] Funder: Breezy White MD Activated partial thrombopla stin time (aPTT) in platelet poor plasma by coagulation aon 10-28-2023 aPTT Coag (PPP) [Time] 26.7 s 22.3-36.2 [facility] Basophils Auto (Bld) [#/Vol] on 10-28-2023 Basophils (Bld) [#/Vol] 0.0 10 3/uL 0.0-0.1 [facility] Basophils/100 WBC Auto (Bld) on 10-28-2023 Basophils/100 WBC (Bld) 0.4 % 0.2-2.0 [facility] Eosinophils/100 WBC Auto (Bl d)on 10-28-2023 Eosinophils/100 WBC (Bld) 1.1 % 0.9-7.0 [facility] Erythrocyte distribution wid th Auto (RBC) [Ratio]on 10-28-2023 Erythrocyte distribution width (RBC) [Ratio] 12.8 % 11.0-15.0 [facility] Estimated glomerular filtrat ion rate (GFR) non- Americanon 10-28-2023 GFR/1.73 sq M.predicted among non-blacks MDRD (S/P/Bld) [Vol rate/Area] mL/min/{1.73_m2} >=60 [facility] Globulin Calc (S) [Mass/Vol] on 10-28-2023 Globulin (S) [Mass/Vol] 3.6 g/dL [facility] Hematocrit Auto (Bld) [Volum e fraction]on 10-28-2023 Hematocrit (Bld) [Volume fraction] 35.3 % 36.0-48.0 [facility] Hemoglobin [Mass/volume] in Bloodon 10-28-2023 Hemoglobin (Bld) [Mass/Vol] 11.6 g/dL 12.0-16.0 [facility] INR in Platelet poor plasma by Coagulation assayon 10-28-2023 INR Coag (PPP) [Relative time] 0.98 {INR} [facility] Comment on above: DESIRED INR:2.0-3.0 CONDITIONS NOT LISTED BELOW2.5-3.5 FOR PROSTHETIC HEART VALVE REPLACEMENT2.5-3.5 RECURRENT THROMBOSIS Laboratory - Chemistry and C hemistry - challengeon 10-28-2023 Albumin [Mass/Vol] 3.2 g/dL 3.4-5.0 [facility] ALP [Catalytic activity/Vol] 82 U/L 46-116 [facility] ALT [Catalytic activity/Vol] 12 U/L 14-59 [facility] AST [Catalytic activity/Vol] 15 U/L 15-37 [facility] Bilirubin [Mass/Vol] 0.4 mg/dL 0.2-1.0 [facility] Calcium [Mass/Vol] 9.1 mg/dL 8.5-10.1 [facility] Chloride [Moles/Vol] 107 mmol/L 98-107 [facility] CO2 [Moles/Vol] 27.8 mmol/L 21.0-32.0 [facility] Creatinine [Mass/Vol] 0.92 mg/dL 0.55-1.02 [facility] GFR/1.73 sq M.predicted MDRD (S/P/Bld) [Vol rate/Area] mL/min/{1.73_m2} >=60 [facility] Glucose [Mass/Vol] 90 mg/dL 74-106 [facility] Natriuretic peptide B (Bld) [Mass/Vol] 152.0 pg/mL <=450.0 [facility] Potassium [Moles/Vol] 4.0 mmol/L 3.5-5.1 [facility] Protein [Mass/Vol] 6.8 g/dL 6.4-8.2 [facility] Sodium [Moles/Vol] 141 mmol/L 136-145 [facility] Urea nitrogen [Mass/Vol] 14.0 mg/dL 7.0-18.0 [facility] Urea nitrogen/Creatinine [Mass ratio] 15.2 mg/mg [facility] Laboratory - Hematology and Cell countson 10-28-2023 Immature granulocytes/100 WBC (Bld) 0.2 % 0.0-0.5 [facility] Leukocytes [#/volume] correc nneka for nucleated erythrocytes in Blood by Automated counon 10-28-2023 WBC corrected for nucl RBC Auto (Bld) [#/Vol] 5.5 10 3/uL 4.0-11.0 [facility] Lymphocytes Auto (Bld) [#/Vo l]on 10-28-2023 Lymphocytes (Bld) [#/Vol] 1.4 10 3/uL 1.2-3.8 [facility] Lymphocytes/100 WBC Auto (Bl d)on 10-28-2023 Lymphocytes/100 WBC (Bld) 25.2 % 20.5-60.0 [facility] MCH Auto (RBC) [Entitic mass ]on 10-28-2023 MCH (RBC) [Entitic mass] 31.8 pg 26.7-34.0 [facility] MCHC Auto (RBC) [Mass/Vol]on 10-28-2023 MCHC (RBC) [Mass/Vol] 32.9 g/dL 29.9-35.2 [facility] MCV Auto (RBC) [Entitic vol] on 10-28-2023 MCV (RBC) [Entitic vol] 96.7 fL 81.0-99.0 [facility] Monocytes Auto (Bld) [#/Vol] on 10-28-2023 Monocytes (Bld) [#/Vol] 0.4 10 3/uL 0.3-0.8 [facility] Monocytes/100 WBC Auto (Bld) on 10-28-2023 Monocytes/100 WBC (Bld) 7.3 % 1.7-12.0 [facility] Neutrophils Auto (Bld) [#/Vo l]on 10-28-2023 Neutrophils (Bld) [#/Vol] 3.6 10 3/uL 1.4-6.5 [facility] Neutrophils/100 WBC Auto (Bl d)on 10-28-2023 Neutrophils/100 WBC (Bld) 65.8 % 43.0-75.0 [facility] No Panel Informationon 10-27 Eosinophils # (Auto) 0.1 10 3/uL 0.0-0.7 [facility] Immature Granulocyte # (Auto) 0.01 10 3/uL 0.00-0.03 [facility] Troponin I High Sensitivity 4.1 pg/mL 4.0-51.3 [facility] Comment on above: CUT-OFF POINTS HAVE [...] [Entitic vol] 9.4 fL 9.5-13.5 [facility] Platelets Auto (Bld) [#/Vol] on 10-28-2023 Platelets (Bld) [#/Vol] 154 10 3/uL 150-450 [facility] Prothrombin time (PT)on PT Coag (PPP) [Time] 10.4 s 9.0-11.6 [facility] RBC Auto (Bld) [#/Vol]on RBC (Bld) [#/Vol] 3.65 10 6/uL 4.20-5.40 [facility] Serum or plasma albumin/glob ulin mass ratioon 10-28-2023 Albumin/Globulin [Mass ratio] 0.9 {ratio} [facility] Serum or plasma anion gap de terminationon 10-28-2023 Anion gap [Moles/Vol] 10.2 mmol/L [facility] Basophils Auto (Bld) [#/Vol] on 10-27-2023 Basophils (Bld) [#/Vol] 0.0 10 3/uL 0.0-0.1 [facility] Basophils/100 WBC Auto (Bld) on 10-27-2023 Basophils/100 WBC (Bld) 0.6 % 0.2-2.0 [facility] Eosinophils/100 WBC Auto (Bl d)on 10-27-2023 Eosinophils/100 WBC (Bld) 1.9 % 0.9-7.0 [facility] Erythrocyte distribution wid th Auto (RBC) [Ratio]on 10-27-2023 Erythrocyte distribution width (RBC) [Ratio] 13.0 % 11.0-15.0 [facility] Estimated glomerular filtrat ion rate (GFR) non- Americanon 10-27-2023 GFR/1.73 sq M.predicted among non-blacks MDRD (S/P/Bld) [Vol rate/Area] mL/min/{1.73_m2} >=60 [facility] Globulin Calc (S) [Mass/Vol] on 10-27-2023 Globulin (S) [Mass/Vol] 3.3 g/dL [facility] Hematocrit Auto (Bld) [Volum e fraction]on 10-27-2023 Hematocrit (Bld) [Volume fraction] 34.1 % 36.0-48.0 [facility] Hemoglobin [Mass/volume] in Bloodon 10-27-2023 Hemoglobin (Bld) [Mass/Vol] 11.0 g/dL 12.0-16.0 [facility] INR in Platelet poor plasma by Coagulation assayon 10-27-2023 INR Coag (PPP) [Relative time] 1.02 {INR} [facility] Comment on above: DESIRED INR:2.0-3.0 CONDITIONS NOT LISTED BELOW2.5-3.5 FOR PROSTHETIC HEART VALVE REPLACEMENT2.5-3.5 RECURRENT THROMBOSIS Laboratory - Chemistry and C hemistry - challengeon 10-27-2023 Albumin [Mass/Vol] 2.8 g/dL 3.4-5.0 [facility] ALP [Catalytic activity/Vol] 74 U/L 46-116 [facility] ALT [Catalytic activity/Vol] 12 U/L 14-59 [facility] AST [Catalytic activity/Vol] 11 U/L 15-37 [facility] Bilirubin [Mass/Vol] 0.5 mg/dL 0.2-1.0 [facility] Calcium [Mass/Vol] 9.0 mg/dL 8.5-10.1 [facility] Chloride [Moles/Vol] 106 mmol/L 98-107 [facility] CO2 [Moles/Vol] 25.5 mmol/L 21.0-32.0 [facility] Creatinine [Mass/Vol] 0.76 mg/dL 0.55-1.02 [facility] GFR/1.73 sq M.predicted MDRD (S/P/Bld) [Vol rate/Area] mL/min/{1.73_m2} >=60 [facility] Glucose [Mass/Vol] 87 mg/dL 74-106 [facility] Lactate [Moles/Vol] 1.1 mmol/L 0.4-2.0 [facility] Potassium [Moles/Vol] 4.2 mmol/L 3.5-5.1 [facility] Protein [Mass/Vol] 6.1 g/dL 6.4-8.2 [facility] Sodium [Moles/Vol] 140 mmol/L 136-145 [facility] Urea nitrogen [Mass/Vol] 8.0 mg/dL 7.0-18.0 [facility] Urea nitrogen/Creatinine [Mass ratio] 10.5 mg/mg [facility] Laboratory - Coagulationon 0 10-27-2023 aPTT Coag (Bld) [Time] 81.9 s 48.2-68.6 [facility] Comment on above: RESULTS CALLED TO Shelton Peterson (RN)@BY Estela Montanez MLT at 0504 Laboratory - Hematology and Cell countson 10-27-2023 Immature granulocytes/100 WBC (Bld) 0.2 % 0.0-0.5 [facility] Leukocytes [#/volume] correc nneka for nucleated erythrocytes in Blood by Automated counon 10-27-2023 WBC corrected for nucl RBC Auto (Bld) [#/Vol] 4.7 10 3/uL 4.0-11.0 [facility] Lymphocytes Auto (Bld) [#/Vo l]on 10-27-2023 Lymphocytes (Bld) [#/Vol] 1.8 10 3/uL 1.2-3.8 [facility] Lymphocytes/100 WBC Auto (Bl d)on 10-27-2023 Lymphocytes/100 WBC (Bld) 37.7 % 20.5-60.0 [facility] MCH Auto (RBC) [Entitic mass ]on 10-27-2023 MCH (RBC) [Entitic mass] 31.4 pg 26.7-34.0 [facility] MCHC Auto (RBC) [Mass/Vol]on 10-27-2023 MCHC (RBC) [Mass/Vol] 32.3 g/dL 29.9-35.2 [facility] MCV Auto (RBC) [Entitic vol] on 10-27-2023 MCV (RBC) [Entitic vol] 97.4 fL 81.0-99.0 [facility] Monocytes Auto (Bld) [#/Vol] on 10-27-2023 Monocytes (Bld) [#/Vol] 0.3 10 3/uL 0.3-0.8 [facility] Monocytes/100 WBC Auto (Bld) on 10-27-2023 Monocytes/100 WBC (Bld) 7.2 % 1.7-12.0 [facility] Neutrophils Auto (Bld) [#/Vo l]on 10-27-2023 Neutrophils (Bld) [#/Vol] 2.5 10 3/uL 1.4-6.5 [facility] Neutrophils/100 WBC Auto (Bl d)on 10-27-2023 Neutrophils/100 WBC (Bld) 52.4 % 43.0-75.0 [facility] No Panel Informationon 10-26 Eosinophils # (Auto) 0.1 10 3/uL 0.0-0.7 [facility] Immature Granulocyte # (Auto) 0.01 10 3/uL 0.00-0.03 [facility] Platelet mean volume Auto (B ld) [Entitic vol]on 10-27-2023 Platelet mean volume (Bld) [Entitic vol] 9.9 fL 9.5-13.5 [facility] Platelets Auto (Bld) [#/Vol] on 10-27-2023 Platelets (Bld) [#/Vol] 122 10 3/uL 150-450 [facility] Prothrombin time (PT)on PT Coag (PPP) [Time] 10.8 s 9.0-11.6 [facility] RBC Auto (Bld) [#/Vol]on RBC (Bld) [#/Vol] 3.50 10 6/uL 4.20-5.40 [facility] Serum or plasma albumin/glob ulin mass ratioon 10-27-2023 Albumin/Globulin [Mass ratio] 0.8 {ratio} [facility] Serum or plasma anion gap de terminationon 10-27-2023 Anion gap [Moles/Vol] 12.7 [facility] Am[facility] urine sedimenton 0 10-26-2023 Amorphous sediment LM Ql (Urine sed) FEW [facility] Automated epithelial cells c ount in urine sediment (number/area)on 10-26-2023 Epithelial cells Auto (Urine sed) [#/Area] MANY #/LPF NONE/RARE [facility] Bacteria [Presence] in Urine by Automatedon 10-26-2023 Bacteria Auto Ql (U) NONE SEEN #/HPF NONE SEEN [facility] Basophils Auto (Bld) [#/Vol] on 10-26-2023 Basophils (Bld) [#/Vol] 0.0 10 3/uL 0.0-0.1 [facility] Basophils/100 WBC Auto (Bld) on 10-26-2023 Basophils/100 WBC (Bld) 0.5 % 0.2-2.0 [facility] Bilirubin Auto test strip (U ) [Mass/Vol]on 10-26-2023 Bilirubin (U) [Mass/Vol] Negative NEGATIVE [facility] Casts typing in urine sedime nt by light microscopyon 10-26-2023 Casts LM Nom (Urine sed) NONE SEEN #/LPF NONE SEEN [facility] Eosinophils/100 WBC Auto (Bl d)on 10-26-2023 Eosinophils/100 WBC (Bld) 1.4 % 0.9-7.0 [facility] Erythrocyte distribution wid th Auto (RBC) [Ratio]on 10-26-2023 Erythrocyte distribution width (RBC) [Ratio] 12.7 % 11.0-15.0 [facility] Estimated glomerular filtrat ion rate (GFR) non- Americanon 10-26-2023 GFR/1.73 sq M.predicted among non-blacks MDRD (S/P/Bld) [Vol rate/Area] mL/min/{1.73_m2} >=60 [facility] Globulin Calc (S) [Mass/Vol] on 10-26-2023 Globulin (S) [Mass/Vol] 4.2 g/dL [facility] HCG ( test) IA.rapi d Ql (U)on 10-26-2023 HCG ( test) Ql (U) Negative NEGATIVE [facility] Hematocrit Auto (Bld) [Volum e fraction]on 10-26-2023 Hematocrit (Bld) [Volume fraction] 38.5 % 36.0-48.0 [facility] Hemoglobin [Mass/volume] in Bloodon 10-26-2023 Hemoglobin (Bld) [Mass/Vol] 12.7 g/dL 12.0-16.0 [facility] INR in Platelet poor plasma by Coagulation assayon 10-26-2023 INR Coag (PPP) [Relative time] 0.96 {INR} [facility] Comment on above: DESIRED INR:2.0-3.0 CONDITIONS NOT LISTED BELOW2.5-3.5 FOR PROSTHETIC HEART VALVE REPLACEMENT2.5-3.5 RECURRENT THROMBOSIS Laboratory - Chemistry and C hemistry - challengeon 10-26-2023 Glucose (U) [Mass/Vol] Negative NEGATIVE [facility] Ketones Ql (U) Negative NEGATIVE [facility] pH (U) 6.0 [pH] 5.0-9.0 [facility] Specific gravity (U) [Rel density] >=1.030 1.005-1.025 [facility] Urobilinogen Qn (U) 1.0 {José'U}/dL 0.2-1.0 [facility] Albumin [Mass/Vol] 3.4 g/dL 3.4-5.0 [facility] ALP [Catalytic activity/Vol] 98 U/L 46-116 [facility] ALT [Catalytic activity/Vol] 11 U/L 14-59 [facility] AST [Catalytic activity/Vol] 9 U/L 15-37 [facility] Bilirubin [Mass/Vol] 0.5 mg/dL 0.2-1.0 [facility] Calcium [Mass/Vol] 9.5 mg/dL 8.5-10.1 [facility] Chloride [Moles/Vol] 104 mmol/L 98-107 [facility] CO2 [Moles/Vol] 25.6 mmol/L 21.0-32.0 [facility] Creatinine [Mass/Vol] 0.94 mg/dL 0.55-1.02 [facility] GFR/1.73 sq M.predicted MDRD (S/P/Bld) [Vol rate/Area] mL/min/{1.73_m2} >=60 [facility] Glucose [Mass/Vol] 96 mg/dL 74-106 [facility] Lactate [Moles/Vol] 2.3 mmol/L 0.4-2.0 [facility] Comment on above: RESULTS CALLED TO Vj COFFEY)@BY Estela Montanez MLT at 2012 Natriuretic peptide B (Bld) [Mass/Vol] 55.0 pg/mL <=450.0 [facility] Potassium [Moles/Vol] 3.2 mmol/L 3.5-5.1 [facility] Protein [Mass/Vol] 7.6 g/dL 6.4-8.2 [facility] Sodium [Moles/Vol] 140 mmol/L 136-145 [facility] TSH Qn 3.806 m[IU]/L 0.358-3.740 [facility] Urea nitrogen [Mass/Vol] 10.0 mg/dL 7.0-18.0 [facility] Urea nitrogen/Creatinine [Mass ratio] 10.6 mg/mg [facility] Laboratory - Hematology and Cell countson 10-26-2023 Immature granulocytes/100 WBC (Bld) 0.3 % 0.0-0.5 [facility] Laboratory - Specimen inform ationon 10-26-2023 Appearance (U) CLEAR CLEAR [facility] Color (U) LT. YELLOW YELLOW [facility] Laboratory - Urinalysison Leukocyte esterase Test strip Ql (U) SMALL NEGATIVE [facility] Nitrite Ql (U) Negative NEGATIVE [facility] Protein Ql (U) Negative NEG/TRACE [facility] Leukocytes [#/area] in Urine sediment by Automated counton 10-26-2023 WBC Auto (Urine sed) [#/Area] NONE SEEN #/HPF 0-2 [facility] Leukocytes [#/area] in Urine sediment by Microscopy high power fieldon 10-26-2023 WBC LM.HPF (Urine sed) [#/Area] 5-10 #/HPF NONE SEEN [facility] Leukocytes [#/volume] correc nneka for nucleated erythrocytes in Blood by Automated counon 10-26-2023 WBC corrected for nucl RBC Auto (Bld) [#/Vol] 6.3 10 3/uL 4.0-11.0 [facility] Lymphocytes Auto (Bld) [#/Vo l]on 10-26-2023 Lymphocytes (Bld) [#/Vol] 1.4 10 3/uL 1.2-3.8 [facility] Lymphocytes/100 WBC Auto (Bl d)on 10-26-2023 Lymphocytes/100 WBC (Bld) 21.8 % 20.5-60.0 [facility] MCH Auto (RBC) [Entitic mass ]on 10-26-2023 MCH (RBC) [Entitic mass] 31.8 pg 26.7-34.0 [facility] MCHC Auto (RBC) [Mass/Vol]on 10-26-2023 MCHC (RBC) [Mass/Vol] 33.0 g/dL 29.9-35.2 [facility] MCV Auto (RBC) [Entitic vol] on 10-26-2023 MCV (RBC) [Entitic vol] 96.5 fL 81.0-99.0 [facility] Monocytes Auto (Bld) [#/Vol] on 10-26-2023 Monocytes (Bld) [#/Vol] 0.5 10 3/uL 0.3-0.8 [facility] Monocytes/100 WBC Auto (Bld) on 10-26-2023 Monocytes/100 WBC (Bld) 7.2 % 1.7-12.0 [facility] Mucus LM Ql (Urine sed)on Mucus Ql (Urine sed) SMALL NONE SEEN [facility] Neutrophils Auto (Bld) [#/Vo l]on 10-26-2023 Neutrophils (Bld) [#/Vol] 4.3 10 3/uL 1.4-6.5 [facility] Neutrophils/100 WBC Auto (Bl d)on 10-26-2023 Neutrophils/100 WBC (Bld) 68.8 % 43.0-75.0 [facility] No Panel Informationon 10-25 Urine Culture Reflexed YES [facility] Urine Microscopic Review YES [facility] Eosinophils # (Auto) 0.1 10 3/uL 0.0-0.7 [facility] Immature Granulocyte # (Auto) 0.02 10 3/uL 0.00-0.03 [facility] Troponin I High Sensitivity <4.0 pg/mL 4.0-51.3 [facility] Comment on above: CUT-OFF POINTS HAVE [...] [Entitic vol] 9.8 fL 9.5-13.5 [facility] Platelets Auto (Bld) [#/Vol] on 10-26-2023 Platelets (Bld) [#/Vol] 138 10 3/uL 150-450 [facility] Prothrombin time (PT)on PT Coag (PPP) [Time] 10.2 s 9.0-11.6 [facility] RBC Auto (Bld) [#/Vol]on RBC (Bld) [#/Vol] 3.99 10 6/uL 4.20-5.40 [facility] Serum or plasma albumin/glob ulin mass ratioon 05-06-2024 Albumin/Globulin [Mass ratio] 0.8 {ratio} [facility] Serum or plasma anion gap de terminationon 10-26-2023 Anion gap [Moles/Vol] 13.6 mmol/L [facility] Urine hemoglobin detection b y automated test stripon 10-26-2023 Hemoglobin Auto test strip Ql (U) Negative NEGATIVE [facility] Urine sediment crystal ident ification by light microscopyon 10-26-2023 Crystals LM Nom (Urine sed) None Seen #/HPF None Seen [facility] Cardiac Device Check - Remot michael 04-24-2023 Radiology Study observation (narrative) [facility] Work Phone: Cardiac Device Check - Remot eOrdered By: Rita Olivia on 04-24-2023 [facility] Work Phone: Office Visit (Cardiology)on 01-20-2023 Follow-up [...] Lead; Status:Active - Perform Order,Retrospective Authorization; Requested for:[id number]; Cardiac pacemaker, Sinus bradycardia, Sinus node dysfunction, Sinus tachycardia Interr. Device Eval - Sngl/Dual/Multiple Pacemaker; Status:Hold For - Scheduling,Retrospective Authorization; Requested for:[id number]; Class 2 obesity with body mass index [...] arrhythmias iss (more content not included)... Normal [employer] Tobacco Screening.on 023 Adult depression screening assessment No [facility] [employer] [place] [employer] [place] Work Phone: Fall risk assessment a) No falls within the last year [facility] [place] [address] DO Work Phone: [phone] Tobacco use status [facility]PH[facility] b) No [facility] [place] [address] DO Work Phone: Alanine aminotransferase [En zymatic activity/volume] in Serum or PlasmaOrdered By: Ke Cage on 12-11-2022 ALT [Catalytic activity/Vol] 13 U/L 7- [facility] Albumin [Mass/volume] in Ser um or Plasma by Bromocresol green (BCG) dye binding methoOrdered By: Ke Cage on 12-11-2022 Albumin BCG dye [Mass/Vol] 4.8 g/dL 3.5-5.7 [facility] Alkaline phosphatase [Enzyma tic activity/volume] in Serum or PlasmaOrdered By: Ke Cage on 12-11-2022 ALP [Catalytic activity/Vol] 83 U/L 34-104 [facility] Amphetamine Screen Ql (U)Ord ered By: Ke Cage on 12-11-2022 Amphetamines Ql (U) Negative Negative [facility] Aspartate aminotransferase [ Enzymatic activity/volume] in Serum or PlasmaOrdered By: Ke Cage on 12-11-2022 AST [Catalytic activity/Vol] 20 U/L 13-39 [facility] Automated erythrocytes count in urine sediment (number/area)Ordered By: Ke Cage on 12-11-2022 RBC Auto (Urine sed) [#/Area] 0-1 [HPF] 0-4 [facility] Automated leukocytes count i n urine sediment (number/area)Ordered By: Ke Cage on 12-11-2022 WBC Auto (Urine sed) [#/Area] 5-9 [HPF] 0-4 [facility] Barbiturates [Presence] in U rine by Screen methodOrdered By: Ke Cage on 12-11-2022 Barbiturates Screen Ql (U) Negative Negative [facility] Basophils Auto (Bld) [#/Vol] Ordered By: Ke Cage on 12-11-2022 Basophils (Bld) [#/Vol] 0.0 10*3/uL 0.0-0.2 [facility] Basophils/100 WBC Auto (Bld) Ordered By: Ke Cage on 12-11-2022 Basophils/100 WBC (Bld) 0.7 % . [facility] Benzodiazepines Screen Ql (U )Ordered By: Ke Cage on 12-11-2022 Benzodiazepines Ql (U) Negative Negative [facility] Benzoylecgonine [Presence] i n Urine by Screen methodOrdered By: Ke Cage on 12-11-2022 Benzoylecgonine Screen Ql (U) Negative Negative [facility] Bilirubin Auto test strip Ql (U)Ordered By: Ke Cage on 12-11-2022 Bilirubin Ql (U) Negative Negative [facility] Bilirubin.total [Mass/volume ] in Serum or PlasmaOrdered By: Ke Cage on 12-11-2022 Bilirubin [Mass/Vol] 0.6 mg/dL 0.3-1.0 [facility] Calcium [Mass/volume] in Ser um or PlasmaOrdered By: Ke Cage on 12-11-2022 Calcium [Mass/Vol] 9.9 mg/dL 8.6-10.3 [facility] Cannabinoids [Presence] in U rine by Screen methodOrdered By: Ke Cage on 12-11-2022 Cannabinoids Screen Ql (U) Negative Negative [facility] Comment on above: These are unconfirme d results and should not be used for legal purposes. Drug Cut-Off Concentration: AMPH 1000 ng/mL BOO 200 ng/mL HELGA 200 ng/mL COCM 300 ng/mL OP 300 ng/mL PCP 25 ng/mL THC 20 ng/mL Carbon dioxide, total [Moles /volume] in Serum or PlasmaOrdered By: Ke Cage on 12-11-2022 CO2 [Moles/Vol] 24.2 mmol/L 21.0-31.0 [facility] Chloride [Moles/volume] in S mac or PlasmaOrdered By: Ke Cage on 12-11-2022 Chloride [Moles/Vol] 107 mmol/L 98-107 [facility] Cholesterol [Mass/volume] in Serum or PlasmaOrdered By: Eduardo Swain on 12-11-2022 Cholesterol [Mass/Vol] 229 mg/dL 140-200 [facility] Comment on above: Chol less than 200 m g/dl low riskChol 201-239 mg/dl borderline riskChol 240 mg/dl and greater high risk Cholesterol in LDL Calc [Mas s/Vol]Ordered By: Eduardo Swain on 12-11-2022 Cholesterol in LDL [Mass/Vol] 129 mg/dL 0-100 [facility] Comment on above: LDL ATP III CLASSIFI CATIONLDL less than 100 mg/dL OptimalLDL 100-129 mg/dL Near or above optimalLDL 130-159 mg/dL Borderline highLDL 160-189 mg/dL HighLDL greater than 189 mg/dL Very high Cholesterol in VLDL Calc [Ma ss/Vol]Ordered By: Eduardo Swain on 12-11-2022 Cholesterol in VLDL [Mass/Vol] 13 mg/dL [facility] Creatinine [Mass/volume] in Serum or PlasmaOrdered By: Ke Cage on 12-11-2022 Creatinine [Mass/Vol] 0.78 mg/dL 0.60-1.20 [facility] Eosinophils Auto (Bld) [#/Vo l]Ordered By: Ke Cage on 12-11-2022 Eosinophils (Bld) [#/Vol] 0.1 10*3/uL 0.0-0.45 [facility] Eosinophils/100 WBC Auto (Bl d)Ordered By: Ke Cage on 12-11-2022 Eosinophils/100 WBC (Bld) 2.2 % . [facility] Erythrocyte distribution wid th Auto (RBC) [Ratio]Ordered By: Ke Cage on 12-11-2022 Erythrocyte distribution width (RBC) [Ratio] 12.9 % 11.9-15.3 [facility] Ethanol [Mass/volume] in Ser um or PlasmaOrdered By: Ke Cage on 12-11-2022 Ethanol [Mass/Vol] mg/dL [facility] Ethanol [Mass/Vol] TNP [facility] Comment on above: Test not performed Globulin Calc (S) [Mass/Vol] Ordered By: Ke Cage on 12-11-2022 Globulin (S) [Mass/Vol] 2.7 g/dL [facility] Glucose [Mass/volume] in Ser um or PlasmaOrdered By: Ke Cage on 12-11-2022 Glucose [Mass/Vol] 87 mg/dL 70-100 [facility] Comment on above: ADA recommended refe rence rangeRandom Glucose Reference Range is dependent on time and content of last meal. Glucose of more than 200 mg/dL in a nonstressed, ambulatory subject supports the diagnosis of Diabetes Mellitus. HCG ( test) IA.rapi d Ql (U)Ordered By: Ke Cage on 12-11-2022 HCG ( test) Ql (U) Negative [facility] Hematocrit Auto (Bld) [Volum e fraction]Ordered By: Ke Cage on 12-11-2022 Hematocrit (Bld) [Volume fraction] 41.8 % 34.0-46.4 [facility] Hemoglobin [Mass/volume] in BloodOrdered By: Ke Cage on 12-11-2022 Hemoglobin (Bld) [Mass/Vol] 14.2 g/dL 11.8-15.4 [facility] Ketones Auto test strip (U) [Mass/Vol]Ordered By: Ke Cage on 12-11-2022 Ketones (U) [Mass/Vol] Negative Negative [facility] - UrinalysisOrder ed By: Ke Cage on 12-11-2022 Hyaline casts LM Ql (Urine sed) 0-8 [LPF] 0-8 [facility] Leukocytes [#/volume] correc nneka for nucleated erythrocytes in Blood by Automated counOrdered By: Ke Cage on 12-11-2022 WBC corrected for nucl RBC Auto (Bld) [#/Vol] 5.8 10*3/uL 3.8-11.6 [facility] Lymphocytes Auto (Bld) [#/Vo l]Ordered By: Ke Cage on 12-11-2022 Lymphocytes (Bld) [#/Vol] 1.7 10*3/uL 1.00-4.8 [facility] Lymphocytes/100 WBC Auto (Bl d)Ordered By: Ke Cage on 12-11-2022 Lymphocytes/100 WBC (Bld) 28.6 % . [facility] MCH Auto (RBC) [Entitic mass ]Ordered By: Ke Cage on 12-11-2022 MCH (RBC) [Entitic mass] 32.4 pg 24.7-34.3 [facility] MCHC Auto (RBC) [Mass/Vol]Or dered By: Ke Cage on 12-11-2022 MCHC (RBC) [Mass/Vol] 33.9 g/dL 32.0-35.0 [facility] MCV Auto (RBC) [Entitic vol] Ordered By: Ke Cage on 12-11-2022 MCV (RBC) [Entitic vol] 95.4 fL 80-100 [facility] Monocyte distribution width [Entitic volume] in Blood by AutomatedOrdered By: Ke Cage on 12-11-2022 Monocyte distribution width Auto (Bld) [Entitic vol] 17.61 % 0.00-20.00 [facility] Monocytes Auto (Bld) [#/Vol] Ordered By: Ke Cage on 12-11-2022 Monocytes (Bld) [#/Vol] 0.5 10*3/uL 0.0-0.8 [facility] Monocytes/100 WBC Auto (Bld) Ordered By: Ke Cage on 12-11-2022 Monocytes/100 WBC (Bld) 8.1 % . [facility] Neutrophils Auto (Bld) [#/Vo l]Ordered By: Ke Cage on 12-11-2022 Neutrophils (Bld) [#/Vol] 3.5 10*3/uL 1.8-7.7 [facility] Neutrophils/100 WBC Auto (Bl d)Ordered By: Ke Cage on 12-11-2022 Neutrophils/100 WBC (Bld) 60.4 % . [facility] No Panel InformationOrdered By: Ke Cage on 12-11-2022 Estimated GFR (CKD-EPI) > 60.0 mL/Min [facility] Creatinine Clearance (Chem 119.76 [facility] Nucleated erythrocytes [Pres ence] in Blood by Automated countOrdered By: Ke Cage on 12-11-2022 Nucleated RBC Auto Ql (Bld) 0.1 /100{WBC} 0-0.5 [facility] Opiates [Presence] in Urine by Screen methodOrdered By: Ke Cage on 12-11-2022 Opiates Screen Ql (U) Negative Negative [facility] Phencyclidine Screen Ql (U)O rdered By: Ke Cage on 12-11-2022 Phencyclidine Ql (U) Negative Negative [facility] Platelet mean volume Auto (B ld) [Entitic vol]Ordered By: Ke Cage on 12-11-2022 Platelet mean volume (Bld) [Entitic vol] 7.9 fL 6.3-10.7 [facility] Platelets Auto (Bld) [#/Vol] Ordered By: Ke Cage on 12-11-2022 Platelets (Bld) [#/Vol] 185 10*3/uL 150-450 [facility] Potassium [Moles/volume] in Serum or PlasmaOrdered By: Ke Cage on 12-11-2022 Potassium [Moles/Vol] 3.8 mmol/L 3.5-5.1 [facility] Protein Auto test strip (U) [Mass/Vol]Ordered By: Ke Cage on 12-11-2022 Protein (U) [Mass/Vol] Negative Negative [facility] Protein [Mass/volume] in Ser um or PlasmaOrdered By: Ke Cage on 12-11-2022 Protein [Mass/Vol] 7.5 g/dL 6.4-8.9 [facility] RBC Auto (Bld) [#/Vol]Ordere d By: Ke Cage on 12-11-2022 RBC (Bld) [#/Vol] 4.38 10*6/uL 3.60-5.00 [facility] Serum or plasma albumin/glob ulin mass ratioOrdered By: Ke Cage on 12-11-2022 Albumin/Globulin [Mass ratio] 1.8 {ratio} [facility] Serum or plasma anion gap de terminationOrdered By: Ke Cage on 12-11-2022 Anion gap [Moles/Vol] 12.6 mmol/L 6.0-15.0 [facility] Serum or plasma high density lipoprotein (HDL) cholesterol measurementOrdered By: Eduardo Swain on 12-11-2022 Cholesterol in HDL [Mass/Vol] 87 mg/dL 23-92 [facility] Comment on above: HDL CHOL ATP-III CLA SSIFICATION Cardiovascular RiskHDL > or equal to 60 mg/dL LOWHDL < 40 mg/dL HIGH Serum or plasma total choles terol/high density lipoprotein (HDL) cholesterol mass ratOrdered By: Eduardo Swain on 12-11-2022 Cholesterol.total/Chol esterol in HDL [Mass ratio] 2.6 {ratio} <5.0 [facility] Sodium [Moles/volume] in Ser um or PlasmaOrdered By: Ke Cage on 12-11-2022 Sodium [Moles/Vol] 140 mmol/L 136-145 [facility] Squamous epithelial cells de tection in urine sediment by light microscopyOrdered By: Ke Cage on 12-11-2022 Epithelial cells.squamous LM Ql (Urine sed) 3-4 [HPF] 0-2 [facility] Thyrotropin [Units/volume] i n Serum or PlasmaOrdered By: Eduardo Swain on 12-11-2022 TSH Qn 1.24 m[IU]/L 0.45-5.33 [facility] Triglyceride [Mass/volume] i n Serum or PlasmaOrdered By: Eduardo Swain on 12-11-2022 Triglyceride [Mass/Vol] 66 mg/dL 0-149 [facility] Comment on above: TRIG ATP III CLASSIF ICATIONTRIG less than 150 mg/dL NormalTRIG 150-199 mg/dL Borderline highTRIG 200-500 mg/dL High TRIG greater than 500 mg/dL Very highStandard traceable to the Center for Disease Conrtrol and Prevention (CDC) test method. Urea nitrogen [Mass/volume] in Serum or PlasmaOrdered By: Ke Cage on 12-11-2022 Urea nitrogen [Mass/Vol] 7 mg/dL 7-25 [facility] Urine appearanceOrdered By: Ke Cage on 12-11-2022 Appearance (U) Slightly cloudy Clear [facility] Urine bacteria detection by automated methodOrdered By: Ke Cage on 12-11-2022 Bacteria Auto Ql (U) None seen None Seen [facility] Urine colorOrdered By: Ke Cage on 12-11-2022 Color (U) Yellow Yellow [facility] Urine culture routineOrdered By: Ke Cage on 12-11-2022 Bacteria identified Cx Nom (U) 2 Days [facility] Urine glucose measurement by automated test strip (mass/volume)Ordered By: Ke Cage on 12-11-2022 Glucose Auto test strip (U) [Mass/Vol] Normal mg/dL Normal [facility] Urine hemoglobin detection b y automated test stripOrdered By: Ke Cage on 12-11-2022 Hemoglobin Auto test strip Ql (U) Negative Negative [facility] Urine leukocyte esterase det ection by automated test stripOrdered By: Ke Cage on 12-11-2022 Leukocyte esterase Auto test strip Ql (U) 2+ Negative [facility] Urine nitrite detection by a utomated test stripOrdered By: Ke Cage on 12-11-2022 Nitrite Auto test strip Ql (U) Negative Negative [facility] Urobilinogen Auto test strip (U) [Mass/Vol]Ordered By: Ke Cage on 12-11-2022 Urobilinogen (U) [Mass/Vol] Normal mg/dL Normal [facility] Vitamin D+Metabolites [Mass/ volume] in Serum or PlasmaOrdered By: Eduardo Swain on 12-11-2022 Vitamin D+Metabolites [Mass/Vol] 36.5 ng/mL 30-100 [facility] Comment on above: VITAMIN D STATUS 25( [place])VITAMIN D RANGE (ng/mL) Deficient <20 Insufficient 20 to <30Sufficient 30 to 100Reference: Franklyn MF,Benjamin GRAF, Andreina MARQUEZ, et al. Evaluation,treatment, and prevention of vitamin D deficiency; an Endocrine Society clinical practice guideline. JCEM. 2010; 96(7):1911-30. WBC Auto (Bld) [#/Vol]Ordere d By: Ke Cage on 12-11-2022 WBC (Bld) [#/Vol] 5.8 10*3/uL 3.8-11.6 [facility] pH Auto test strip (U)Ordere d By: Ke Cage on 12-11-2022 pH (U) 1.015 [pH] 1.001-1.030 [facility] pH (U) 6.0 [pH] 5.0-9.0 [facility] Basophils Auto (Bld) [#/Vol] Ordered By: Afshan Hines on 11-01-2022 Basophils (Bld) [#/Vol] 0.0 10*3/uL 0.0-0.2 [facility] Basophils/100 WBC Auto (Bld) Ordered By: Afshan Hines on 11-01-2022 Basophils/100 WBC (Bld) 0.9 % . [facility] Calcium [Mass/volume] in Ser um or PlasmaOrdered By: Afshan Hines on 11-01-2022 Calcium [Mass/Vol] 8.8 mg/dL 8.6-10.3 [facility] Carbon dioxide, total [Moles /volume] in Serum or PlasmaOrdered By: Afshan Hines on 11-01-2022 CO2 [Moles/Vol] 26.4 mmol/L 21.0-31.0 [facility] Chloride [Moles/volume] in S mac or PlasmaOrdered By: Afshan Hines on 11-01-2022 Chloride [Moles/Vol] 107 mmol/L 98-107 [facility] Creatinine [Mass/volume] in Serum or PlasmaOrdered By: Afshan Hines on 11-01-2022 Creatinine [Mass/Vol] 0.82 mg/dL 0.60-1.20 [facility] Eosinophils Auto (Bld) [#/Vo l]Ordered By: Afshan Hines on 11-01-2022 Eosinophils (Bld) [#/Vol] 0.2 10*3/uL 0.0-0.45 [facility] Eosinophils/100 WBC Auto (Bl d)Ordered By: Afshan Hines on 11-01-2022 Eosinophils/100 WBC (Bld) 4.2 % . [facility] Erythrocyte distribution wid th Auto (RBC) [Ratio]Ordered By: Afshan Hines on 11-01-2022 Erythrocyte distribution width (RBC) [Ratio] 12.9 % 11.9-15.3 [facility] Glucose [Mass/volume] in Ser um or PlasmaOrdered By: Afshan Hines on 11-01-2022 Glucose [Mass/Vol] 74 mg/dL 70-100 [facility] Comment on above: ADA recommended refe rence rangeRandom Glucose Reference Range is dependent on time and content of last meal. Glucose of more than 200 mg/dL in a nonstressed, ambulatory subject supports the diagnosis of Diabetes Mellitus. Hematocrit Auto (Bld) [Volum e fraction]Ordered By: Afshan Hines on 11-01-2022 Hematocrit (Bld) [Volume fraction] 37.5 % 34.0-46.4 [facility] Hemoglobin [Mass/volume] in BloodOrdered By: Afshan Hines on 11-01-2022 Hemoglobin (Bld) [Mass/Vol] 12.5 g/dL 11.8-15.4 [facility] Leukocytes [#/volume] correc nneka for nucleated erythrocytes in Blood by Automated counOrdered By: Afshan Hines on 11-01-2022 WBC corrected for nucl RBC Auto (Bld) [#/Vol] 5.1 10*3/uL 3.8-11.6 [facility] Lymphocytes Auto (Bld) [#/Vo l]Ordered By: Afshan Hnies on 11-01-2022 Lymphocytes (Bld) [#/Vol] 1.8 10*3/uL 1.00-4.8 [facility] Lymphocytes/100 WBC Auto (Bl d)Ordered By: Afshan Hines on 11-01-2022 Lymphocytes/100 WBC (Bld) 34.7 % . [facility] MCH Auto (RBC) [Entitic mass ]Ordered By: Afshan Hines on 11-01-2022 MCH (RBC) [Entitic mass] 32.2 pg 24.7-34.3 [facility] MCHC Auto (RBC) [Mass/Vol]Or dered By: Afshan Hines on 11-01-2022 MCHC (RBC) [Mass/Vol] 33.4 g/dL 32.0-35.0 [facility] MCV Auto (RBC) [Entitic vol] Ordered By: Afshan Hines on 11-01-2022 MCV (RBC) [Entitic vol] 96.5 fL 80-100 [facility] Monocytes Auto (Bld) [#/Vol] Ordered By: Afshan Hines on 11-01-2022 Monocytes (Bld) [#/Vol] 0.3 10*3/uL 0.0-0.8 [facility] Monocytes/100 WBC Auto (Bld) Ordered By: Afshan Hines on 11-01-2022 Monocytes/100 WBC (Bld) 6.1 % . [facility] Neutrophils Auto (Bld) [#/Vo l]Ordered By: Afshan Hines on 11-01-2022 Neutrophils (Bld) [#/Vol] 2.8 10*3/uL 1.8-7.7 [facility] Neutrophils/100 WBC Auto (Bl d)Ordered By: Afshan Hines on 11-01-2022 Neutrophils/100 WBC (Bld) 54.1 % . [facility] No Panel InformationOrdered By: Afshan Hines on 11-01-2022 Estimated GFR (CKD-EPI) > 60.0 mL/Min [facility] Creatinine Clearance (Chem 114.96 [facility] Nucleated erythrocytes [Pres ence] in Blood by Automated countOrdered By: Afshan Hines on 11-01-2022 Nucleated RBC Auto Ql (Bld) 0.1 /100{WBC} 0-0.5 [facility] Platelet mean volume Auto (B ld) [Entitic vol]Ordered By: fAshan Hines on 11-01-2022 Platelet mean volume (Bld) [Entitic vol] 7.8 fL 6.3-10.7 [facility] Platelets Auto (Bld) [#/Vol] Ordered By: Afshan Hines on 11-01-2022 Platelets (Bld) [#/Vol] 184 10*3/uL 150-450 [facility] Potassium [Moles/volume] in Serum or PlasmaOrdered By: Afshan Hines on 11-01-2022 Potassium [Moles/Vol] 4.0 mmol/L 3.5-5.1 [facility] RBC Auto (Bld) [#/Vol]Ordere d By: Afshan Hines on 11-01-2022 RBC (Bld) [#/Vol] 3.89 10*6/uL 3.60-5.00 [facility] Serum or plasma anion gap de terminationOrdered By: Afshan Hines on 11-01-2022 Anion gap [Moles/Vol] 10.6 mmol/L 6.0-15.0 [facility] Sodium [Moles/volume] in Ser um or PlasmaOrdered By: Afshan Hines on 11-01-2022 Sodium [Moles/Vol] 140 mmol/L 136-145 [facility] Urea nitrogen [Mass/volume] in Serum or PlasmaOrdered By: Afshan Hines on 11-01-2022 Urea nitrogen [Mass/Vol] 14 mg/dL 7-25 [facility] Vitamin B12 ser/plasOrdered By: Afshan Hines on 11-01-2022 Cobalamin (Vitamin B12) [Mass/Vol] 205 pg/mL 180-914 [facility] WBC Auto (Bld) [#/Vol]Ordere d By: Afshan Hines on 11-01-2022 WBC (Bld) [#/Vol] 5.1 10*3/uL 3.8-11.6 [facility] Alanine aminotransferase [En zymatic activity/volume] in Serum or PlasmaOrdered By: Afshan Hines on 2022 ALT [Catalytic activity/Vol] 10 U/L 7-52 [facility] Albumin [Mass/volume] in Ser um or Plasma by Bromocresol green (BCG) dye binding methoOrdered By: Afshan Hiens on 2022 Albumin BCG dye [Mass/Vol] 3.4 g/dL 3.5-5.7 [facility] Alkaline phosphatase [Enzyma tic activity/volume] in Serum or PlasmaOrdered By: Afshan Hines on 2022 ALP [Catalytic activity/Vol] 66 U/L 34-104 [facility] Aspartate aminotransferase [ Enzymatic activity/volume] in Serum or PlasmaOrdered By: Afshan Hines on 2022 AST [Catalytic activity/Vol] 15 U/L 13-39 [facility] Bilirubin.total [Mass/volume ] in Serum or PlasmaOrdered By: Afshan Hines on 2022 Bilirubin [Mass/Vol] 0.7 mg/dL 0.3-1.0 [facility] Globulin Calc (S) [Mass/Vol] Ordered By: Afshan Hines on 2022 Globulin (S) [Mass/Vol] 2.2 g/dL [facility] Protein [Mass/volume] in Ser um or PlasmaOrdered By: Afshan Hines on 2022 Protein [Mass/Vol] 5.6 g/dL 6.4-8.9 [facility] Serum or plasma albumin/glob ulin mass ratioOrdered By: Afshan Hines on 2022 Albumin/Globulin [Mass ratio] 1.5 {ratio} [facility] Cholesterol [Mass/volume] in Serum or PlasmaOrdered By: Nimesh Cerda on 10-29-2022 Cholesterol [Mass/Vol] 181 mg/dL 140-200 [facility] Comment on above: Chol less than 200 m g/dl low riskChol 201-239 mg/dl borderline riskChol 240 mg/dl and greater high risk Cholesterol in LDL Calc [Mas s/Vol]Ordered By: Nimesh Cerda on 10-29-2022 Cholesterol in LDL [Mass/Vol] 99 mg/dL 0-100 [facility] Comment on above: LDL ATP III CLASSIFI CATIONLDL less than 100 mg/dL OptimalLDL 100-129 mg/dL Near or above optimalLDL 130-159 mg/dL Borderline highLDL 160-189 mg/dL HighLDL greater than 189 mg/dL Very high Cholesterol in VLDL Calc [Ma ss/Vol]Ordered By: Nimesh Cerda on 10-29-2022 Cholesterol in VLDL [Mass/Vol] 18 mg/dL [facility] Serum or plasma high density lipoprotein (HDL) cholesterol measurementOrdered By: Nimesh Cerda on 10-29-2022 Cholesterol in HDL [Mass/Vol] 64 mg/dL 35-85 [facility] Comment on above: HDL CHOL ATP-III CLA SSIFICATION Cardiovascular RiskHDL > or equal to 60 mg/dL LOWHDL < 40 mg/dL HIGH Serum or plasma total choles terol/high density lipoprotein (HDL) cholesterol mass ratOrdered By: Nimesh Cerda on 10-29-2022 Cholesterol.total/Chol esterol in HDL [Mass ratio] 2.8 {ratio} <5.0 [facility] Thyrotropin [Units/volume] i n Serum or PlasmaOrdered By: Nimesh Cerda on 10-29-2022 TSH Qn 0.60 m[IU]/L 0.45-5.33 [facility] Triglyceride [Mass/volume] i n Serum or PlasmaOrdered By: Nimesh Cerda on 10-29-2022 Triglyceride [Mass/Vol] 92 mg/dL 0-149 [facility] Comment on above: TRIG ATP III CLASSIF ICATIONTRIG less than 150 mg/dL NormalTRIG 150-199 mg/dL Borderline highTRIG 200-500 mg/dL High TRIG greater than 500 mg/dL Very highStandard traceable to the Center for Disease Conrtrol and Prevention (CDC) test method. Vitamin D+Metabolites [Mass/ volume] in Serum or PlasmaOrdered By: Nimesh Cerda on 10-29-2022 Vitamin D+Metabolites [Mass/Vol] 26.3 ng/mL 30-100 [facility] Comment on above: VITAMIN D STATUS [...] [Catalytic activity/Vol] 11 U/L 7-52 [facility] Albumin [Mass/volume] in Ser um or Plasma by Bromocresol green (BCG) dye binding methoOrdered By: Keven Florentino on 10-28-2022 Albumin BCG dye [Mass/Vol] 3.7 g/dL 3.5-5.7 [facility] Alkaline phosphatase [Enzyma tic activity/volume] in Serum or PlasmaOrdered By: Keven Florentino on 10-28-2022 ALP [Catalytic activity/Vol] 74 U/L 34-104 [facility] Amphetamine Screen Ql (U)Ord ered By: Keven Florentino on 10-28-2022 Amphetamines Ql (U) Negative Negative [facility] Aspartate aminotransferase [ Enzymatic activity/volume] in Serum or PlasmaOrdered By: Keven Florentino on 10-28-2022 AST [Catalytic activity/Vol] 15 U/L 13-39 [facility] Automated erythrocytes count in urine sediment (number/area)Ordered By: Keven Florentino on 10-28-2022 RBC Auto (Urine sed) [#/Area] 1-2 [HPF] 0-4 [facility] Automated leukocytes count i n urine sediment (number/area)Ordered By: Keven Florentino on 10-28-2022 WBC Auto (Urine sed) [#/Area] 10-19 [HPF] 0-4 [facility] Barbiturates [Presence] in U rine by Screen methodOrdered By: Keven Florentino on 10-28-2022 Barbiturates Screen Ql (U) Negative Negative [facility] Basophils Auto (Bld) [#/Vol] Ordered By: Keven Florentino on 10-28-2022 Basophils (Bld) [#/Vol] 0.0 10*3/uL 0.0-0.2 [facility] Basophils/100 WBC Auto (Bld) Ordered By: Keven Florentino on 10-28-2022 Basophils/100 WBC (Bld) 0.7 % . [facility] Benzodiazepines Screen Ql (U )Ordered By: Keven Florentino on 10-28-2022 Benzodiazepines Ql (U) Negative Negative [facility] Benzoylecgonine [Presence] i n Urine by Screen methodOrdered By: Keven Florentino on 10-28-2022 Benzoylecgonine Screen Ql (U) Negative Negative [facility] Bilirubin Test strip Ql (U)O rdered By: Keven Florentino on 10-28-2022 Bilirubin Ql (U) Negative Negative [facility] Bilirubin.total [Mass/volume ] in Serum or PlasmaOrdered By: Keven Florentino on 10-28-2022 Bilirubin [Mass/Vol] 0.5 mg/dL 0.3-1.0 [facility] Calcium [Mass/volume] in Ser um or PlasmaOrdered By: Keven Florentino on 10-28-2022 Calcium [Mass/Vol] 8.5 mg/dL 8.6-10.3 [facility] Cannabinoids [Presence] in U rine by Screen methodOrdered By: Keven Florentino on 10-28-2022 Cannabinoids Screen Ql (U) Negative Negative [facility] Comment on above: These are unconfirme d results and should not be used for legal purposes. Drug Cut-Off Concentration: AMPH 1000 ng/mL BOO 200 ng/mL HELGA 200 ng/mL COCM 300 ng/mL OP 300 ng/mL PCP 25 ng/mL THC 20 ng/mL Carbon dioxide, total [Moles /volume] in Serum or PlasmaOrdered By: Keven Florentino on 10-28-2022 CO2 [Moles/Vol] 24.6 mmol/L 21.0-31.0 [facility] Chloride [Moles/volume] in S mac or PlasmaOrdered By: Keven Florentino on 10-28-2022 Chloride [Moles/Vol] 109 mmol/L 98-107 [facility] Color Auto (U)Ordered By: Anibal red Mishel on 10-28-2022 Color (U) Dark yellow Yellow [facility] Creatinine [Mass/volume] in Serum or PlasmaOrdered By: Keven Florentino on 10-28-2022 Creatinine [Mass/Vol] 0.70 mg/dL 0.60-1.20 [facility] Eosinophils Auto (Bld) [#/Vo l]Ordered By: Keven Florentino on 10-28-2022 Eosinophils (Bld) [#/Vol] 0.2 10*3/uL 0.0-0.45 [facility] Eosinophils/100 WBC Auto (Bl d)Ordered By: Keven Florentino on 10-28-2022 Eosinophils/100 WBC (Bld) 3.9 % . [facility] Erythrocyte distribution wid th Auto (RBC) [Ratio]Ordered By: Keven Florentino on 10-28-2022 Erythrocyte distribution width (RBC) [Ratio] 13.0 % 11.9-15.3 [facility] Ethanol [Mass/volume] in Ser um or PlasmaOrdered By: Keven Florentino on 10-28-2022 Ethanol [Mass/Vol] mg/dL [facility] Ethanol [Mass/Vol] TNP [facility] Comment on above: Test not performed Globulin Calc (S) [Mass/Vol] Ordered By: Keven Florentino on 10-28-2022 Globulin (S) [Mass/Vol] 2.4 g/dL [facility] Glucose [Mass/volume] in Ser um or PlasmaOrdered By: Keven Florentino on 10-28-2022 Glucose [Mass/Vol] 91 mg/dL 70-100 [facility] Comment on above: ADA recommended refe rence rangeRandom Glucose Reference Range is dependent on time and content of last meal. Glucose of more than 200 mg/dL in a nonstressed, ambulatory subject supports the diagnosis of Diabetes Mellitus. HCG ( test) IA.rapi d Ql (U)Ordered By: Keven Florentino on 10-28-2022 HCG ( test) Ql (U) Negative [facility] Hematocrit Auto (Bld) [Volum e fraction]Ordered By: Keven Florentino on 10-28-2022 Hematocrit (Bld) [Volume fraction] 36.0 % 34.0-46.4 [facility] Hemoglobin [Mass/volume] in BloodOrdered By: Keven Florentino on 10-28-2022 Hemoglobin (Bld) [Mass/Vol] 12.1 g/dL 11.8-15.4 [facility] Ketones Auto test strip (U) [Mass/Vol]Ordered By: Keven Florentino on 10-28-2022 Ketones (U) [Mass/Vol] Trace Negative [facility] - UrinalysisOrder ed By: Keven Florentino on 10-28-2022 Hyaline casts LM Ql (Urine sed) 0-8 [LPF] 0-8 [facility] Leukocytes [#/volume] correc nneka for nucleated erythrocytes in Blood by Automated counOrdered By: Keven Florentino on 10-28-2022 WBC corrected for nucl RBC Auto (Bld) [#/Vol] 6.1 10*3/uL 3.8-11.6 [facility] Lymphocytes Auto (Bld) [#/Vo l]Ordered By: Keven Florentino on 10-28-2022 Lymphocytes (Bld) [#/Vol] 1.2 10*3/uL 1.00-4.8 [facility] Lymphocytes/100 WBC Auto (Bl d)Ordered By: Keven Florentino on 10-28-2022 Lymphocytes/100 WBC (Bld) 19.9 % . [facility] MCH Auto (RBC) [Entitic mass ]Ordered By: Keven Florentino on 10-28-2022 MCH (RBC) [Entitic mass] 32.4 pg 24.7-34.3 [facility] MCHC Auto (RBC) [Mass/Vol]Or dered By: Keven Florentino on 10-28-2022 MCHC (RBC) [Mass/Vol] 33.7 g/dL 32.0-35.0 [facility] MCV Auto (RBC) [Entitic vol] Ordered By: Keven Florentino on 10-28-2022 MCV (RBC) [Entitic vol] 96.1 fL 80-100 [facility] Monocyte distribution width [Entitic volume] in Blood by AutomatedOrdered By: Keven Florentino on 10-28-2022 Monocyte distribution width Auto (Bld) [Entitic vol] 17.88 % 0.00-20.00 [facility] Monocytes Auto (Bld) [#/Vol] Ordered By: Keven Florentino on 10-28-2022 Monocytes (Bld) [#/Vol] 0.4 10*3/uL 0.0-0.8 [facility] Monocytes/100 WBC Auto (Bld) Ordered By: Keven Florentino on 10-28-2022 Monocytes/100 WBC (Bld) 6.5 % . [facility] Neutrophils Auto (Bld) [#/Vo l]Ordered By: Keven Florentino on 10-28-2022 Neutrophils (Bld) [#/Vol] 4.2 10*3/uL 1.8-7.7 [facility] Neutrophils/100 WBC Auto (Bl d)Ordered By: Keven Florentino on 10-28-2022 Neutrophils/100 WBC (Bld) 69.0 % . [facility] Nitrite Test strip Ql (U)Ord ered By: Keven Florentino on 10-28-2022 Nitrite Ql (U) Negative Negative [facility] No Panel InformationOrdered By: Keven Florentino on 10-28-2022 Estimated GFR (CKD-EPI) > 60.0 mL/Min [facility] Creatinine Clearance (Chem 136.41 [facility] Nucleated erythrocytes [Pres ence] in Blood by Automated countOrdered By: Keven Florentino on 10-28-2022 Nucleated RBC Auto Ql (Bld) 0.2 /100{WBC} 0-0.5 [facility] Opiates [Presence] in Urine by Screen methodOrdered By: Keven Florentino on 10-28-2022 Opiates Screen Ql (U) Negative Negative [facility] Phencyclidine Screen Ql (U)O rdered By: Keven Florentino on 10-28-2022 Phencyclidine Ql (U) Negative Negative [facility] Platelet mean volume Auto (B ld) [Entitic vol]Ordered By: Keven Florentino on 10-28-2022 Platelet mean volume (Bld) [Entitic vol] 7.5 fL 6.3-10.7 [facility] Platelets Auto (Bld) [#/Vol] Ordered By: Keven Florentino on 10-28-2022 Platelets (Bld) [#/Vol] 177 10*3/uL 150-450 [facility] Potassium [Moles/volume] in Serum or PlasmaOrdered By: eKven Florentino on 10-28-2022 Potassium [Moles/Vol] 3.8 mmol/L 3.5-5.1 [facility] Protein Auto test strip (U) [Mass/Vol]Ordered By: Keven Florentino on 10-28-2022 Protein (U) [Mass/Vol] Negative Negative [facility] Protein [Mass/volume] in Ser um or PlasmaOrdered By: Keven Florentino on 10-28-2022 Protein [Mass/Vol] 6.1 g/dL 6.4-8.9 [facility] RBC Auto (Bld) [#/Vol]Ordere d By: Keven Florentino on 10-28-2022 RBC (Bld) [#/Vol] 3.74 10*6/uL 3.60-5.00 [facility] Serum or plasma albumin/glob ulin mass ratioOrdered By: Keven Florentino on 10-28-2022 Albumin/Globulin [Mass ratio] 1.5 {ratio} [facility] Serum or plasma anion gap de terminationOrdered By: Keven Florentino on 10-28-2022 Anion gap [Moles/Vol] 11.2 mmol/L 6.0-15.0 [facility] Sodium [Moles/volume] in Ser um or PlasmaOrdered By: Keven Florentino on 10-28-2022 Sodium [Moles/Vol] 141 mmol/L 136-145 [facility] Specific gravity Auto test s trip (U) [Rel density]Ordered By: Keven Florentino on 10-28-2022 Specific gravity (U) [Rel density] 1.024 1.001-1.030 [facility] Squamous epithelial cells de tection in urine sediment by light microscopyOrdered By: Keven Florentino on 10-28-2022 Epithelial cells.squamous LM Ql (Urine sed) 5-9 [HPF] 0-2 [facility] Urea nitrogen [Mass/volume] in Serum or PlasmaOrdered By: Keven Florentino on 10-28-2022 Urea nitrogen [Mass/Vol] 15 mg/dL 7-25 [facility] Urine bacteria detection by automated methodOrdered By: Keven Florentino on 10-28-2022 Bacteria Auto Ql (U) None seen None Seen [facility] Urine clarity by refractomet ry automatedOrdered By: Keven Florentino on 10-28-2022 Clarity Refractometry automated (U) Clear Clear [facility] Urine culture routineOrdered By: Keven Florentino on 10-28-2022 Bacteria identified Cx Nom (U) 2 Days [facility] Urine glucose measurement by automated test strip (mass/volume)Ordered By: Keven Florentino on 10-28-2022 Glucose Auto test strip (U) [Mass/Vol] Normal mg/dL Normal [facility] Urine hemoglobin detection b y automated test stripOrdered By: Keven Florentino on 10-28-2022 Hemoglobin Auto test strip Ql (U) Negative Negative [facility] Urine leukocyte esterase det ection by automated test stripOrdered By: Keven Florentino on 10-28-2022 Leukocyte esterase Auto test strip Ql (U) 3+ Negative [facility] Urobilinogen Auto test strip (U) [Mass/Vol]Ordered By: Keven Florentino on 10-28-2022 Urobilinogen (U) [Mass/Vol] mg/dL Normal [facility] WBC Auto (Bld) [#/Vol]Ordere d By: Keven Florentino on 10-28-2022 WBC (Bld) [#/Vol] 6.1 10*3/uL 3.8-11.6 [facility] pH Auto test strip (U)Ordere d By: Keven Florentino on 10-28-2022 pH (U) 6.0 [pH] 5.0-9.0 [facility] Alanine aminotransferase [En zymatic activity/volume] in Serum or PlasmaOrdered By: Chelsie Cortez on 10-18-2022 ALT [Catalytic activity/Vol] 20 U/L 7-52 [facility] Albumin [Mass/volume] in Ser um or Plasma by Bromocresol green (BCG) dye binding methoOrdered By: Chelsie Cortez on 10-18-2022 Albumin BCG dye [Mass/Vol] 3.9 g/dL 3.5-5.7 [facility] Alkaline phosphatase [Enzyma tic activity/volume] in Serum or PlasmaOrdered By: Chelsie Cortez on 10-18-2022 ALP [Catalytic activity/Vol] 99 U/L 34-104 [facility] Aspartate aminotransferase [ Enzymatic activity/volume] in Serum or PlasmaOrdered By: Chelsie Cortez on 10-18-2022 AST [Catalytic activity/Vol] 20 U/L 13-39 [facility] Automated erythrocytes count in urine sediment (number/area)Ordered By: Chelsie Cortez on 10-18-2022 RBC Auto (Urine sed) [#/Area] 0-1 [HPF] 0-4 [facility] Automated leukocytes count i n urine sediment (number/area)Ordered By: Chelsie Cortez on 10-18-2022 WBC Auto (Urine sed) [#/Area] 20-49 [HPF] 0-4 [facility] Basophils Auto (Bld) [#/Vol] Ordered By: Chelsie Cortez on 10-18-2022 Basophils (Bld) [#/Vol] 0.0 10*3/uL 0.0-0.2 [facility] Basophils/100 WBC Auto (Bld) Ordered By: Chelsie Cortez on 10-18-2022 Basophils/100 WBC (Bld) 0.8 % . [facility] Bilirubin Test strip Ql (U)O rdered By: Chelsie Cortez on 10-18-2022 Bilirubin Ql (U) Negative Negative [facility] Bilirubin.direct [Mass/volum e] in Serum or PlasmaOrdered By: Chelsie Cortez on 10-18-2022 Bilirubin.direct [Mass/Vol] 0.10 mg/dL 0.03-0.18 [facility] Bilirubin.total [Mass/volume ] in Serum or PlasmaOrdered By: Chelsie Cortez on 10-18-2022 Bilirubin [Mass/Vol] 0.6 mg/dL 0.3-1.0 [facility] Calcium [Mass/volume] in Ser um or PlasmaOrdered By: Chelsie Cortez on 10-18-2022 Calcium [Mass/Vol] 8.8 mg/dL 8.6-10.3 [facility] Carbon dioxide, total [Moles /volume] in Serum or PlasmaOrdered By: Chelsie Coretz on 10-18-2022 CO2 [Moles/Vol] 26.5 mmol/L 21.0-31.0 [facility] Chloride [Moles/volume] in S mac or PlasmaOrdered By: Chelsie Cortez on 10-18-2022 Chloride [Moles/Vol] 107 mmol/L 98-107 [facility] Color Auto (U)Ordered By: Jose Cortez on 10-18-2022 Color (U) Yellow Yellow [facility] Creatinine [Mass/volume] in Serum or PlasmaOrdered By: Chelsie Cortez on 10-18-2022 Creatinine [Mass/Vol] 0.83 mg/dL 0.60-1.20 [facility] Eosinophils Auto (Bld) [#/Vo l]Ordered By: Chelsie Cortez on 10-18-2022 Eosinophils (Bld) [#/Vol] 0.1 10*3/uL 0.0-0.45 [facility] Eosinophils/100 WBC Auto (Bl d)Ordered By: Chelsie Cortez on 10-18-2022 Eosinophils/100 WBC (Bld) 1.2 % . [facility] Erythrocyte distribution wid th Auto (RBC) [Ratio]Ordered By: Chelsie Cortez on 10-18-2022 Erythrocyte distribution width (RBC) [Ratio] 13.1 % 11.9-15.3 [facility] Globulin Calc (S) [Mass/Vol] Ordered By: Chelsie Cortez on 10-18-2022 Globulin (S) [Mass/Vol] 2.8 g/dL [facility] Glucose [Mass/volume] in Ser um or PlasmaOrdered By: Chelsie Cortez on 10-18-2022 Glucose [Mass/Vol] 101 mg/dL 70-100 [facility] Comment on above: ADA recommended refe rence rangeRandom Glucose Reference Range is dependent on time and content of last meal. Glucose of more than 200 mg/dL in a nonstressed, ambulatory subject supports the diagnosis of Diabetes Mellitus. HCG ( test) IA.rapi d Ql (U)Ordered By: Chelsie Cortez on 10-18-2022 HCG ( test) Ql (U) Negative [facility] Hematocrit Auto (Bld) [Volum e fraction]Ordered By: Chelsie Cortez on 10-18-2022 Hematocrit (Bld) [Volume fraction] 35.1 % 34.0-46.4 [facility] Hemoglobin [Mass/volume] in BloodOrdered By: Chelsie Cortez on 10-18-2022 Hemoglobin (Bld) [Mass/Vol] 12.0 g/dL 11.8-15.4 [facility] Ketones Auto test strip (U) [Mass/Vol]Ordered By: Chelsie Cortez on 10-18-2022 Ketones (U) [Mass/Vol] Negative Negative [facility] - UrinalysisOrder ed By: Chelsie Cortez on 10-18-2022 Hyaline casts LM Ql (Urine sed) 0-8 [LPF] 0-8 [facility] Leukocytes [#/volume] correc nneka for nucleated erythrocytes in Blood by Automated counOrdered By: Chelsie Cortez on 10-18-2022 WBC corrected for nucl RBC Auto (Bld) [#/Vol] 6.3 10*3/uL 3.8-11.6 [facility] Lipase [Enzymatic activity/v olume] in Serum or PlasmaOrdered By: Chelsie Cortez on 10-18-2022 Lipase [Catalytic activity/Vol] 42.0 U/L 11.0-82.0 [facility] Lymphocytes Auto (Bld) [#/Vo l]Ordered By: Chelsie Cortez on 10-18-2022 Lymphocytes (Bld) [#/Vol] 1.4 10*3/uL 1.00-4.8 [facility] Lymphocytes/100 WBC Auto (Bl d)Ordered By: Chelsie Cortez on 10-18-2022 Lymphocytes/100 WBC (Bld) 22.0 % . [facility] MCH Auto (RBC) [Entitic mass ]Ordered By: Chelsie Cortez on 10-18-2022 MCH (RBC) [Entitic mass] 33.0 pg 24.7-34.3 [facility] MCHC Auto (RBC) [Mass/Vol]Or dered By: Chelsie Cortez on 10-18-2022 MCHC (RBC) [Mass/Vol] 34.2 g/dL 32.0-35.0 [facility] MCV Auto (RBC) [Entitic vol] Ordered By: Chelsie Cortez on 10-18-2022 MCV (RBC) [Entitic vol] 96.5 fL 80-100 [facility] Magnesium [Mass/volume] in S mac or PlasmaOrdered By: Chelsie Cortez on 10-18-2022 Magnesium [Mass/Vol] 2.1 mg/dL 1.9-2.7 [facility] Monocytes Auto (Bld) [#/Vol] Ordered By: Chelsie Cortez on 10-18-2022 Monocytes (Bld) [#/Vol] 0.5 10*3/uL 0.0-0.8 [facility] Monocytes/100 WBC Auto (Bld) Ordered By: Chelsie Cortez on 10-18-2022 Monocytes/100 WBC (Bld) 7.2 % . [facility] Neutrophils Auto (Bld) [#/Vo l]Ordered By: Chelsie Cortez on 10-18-2022 Neutrophils (Bld) [#/Vol] 4.3 10*3/uL 1.8-7.7 [facility] Neutrophils/100 WBC Auto (Bl d)Ordered By: Chelsie Cortez on 10-18-2022 Neutrophils/100 WBC (Bld) 68.8 % . [facility] Nitrite Test strip Ql (U)Ord ered By: Chelsie Cortez on 10-18-2022 Nitrite Ql (U) Negative Negative [facility] No Panel InformationOrdered By: Chelsie Cortez on 10-18-2022 Estimated GFR (CKD-EPI) > 60.0 mL/Min [facility] Creatinine Clearance (Chem 115.47 [facility] Nucleated erythrocytes [Pres ence] in Blood by Automated countOrdered By: Chelsie Cortez on 10-18-2022 Nucleated RBC Auto Ql (Bld) 0.1 /100{WBC} 0-0.5 [facility] Platelet mean volume Auto (B ld) [Entitic vol]Ordered By: Chelsie Cortez on 10-18-2022 Platelet mean volume (Bld) [Entitic vol] 7.6 fL 6.3-10.7 [facility] Platelets Auto (Bld) [#/Vol] Ordered By: Chelsie oCrtez on 10-18-2022 Platelets (Bld) [#/Vol] 170 10*3/uL 150-450 [facility] Potassium [Moles/volume] in Serum or PlasmaOrdered By: Chelsie Cortez on 10-18-2022 Potassium [Moles/Vol] 4.2 mmol/L 3.5-5.1 [facility] Protein Auto test strip (U) [Mass/Vol]Ordered By: Chelsie Cortez on 10-18-2022 Protein (U) [Mass/Vol] Negative Negative [facility] Protein [Mass/volume] in Ser um or PlasmaOrdered By: Chelsie Cortez on 10-18-2022 Protein [Mass/Vol] 6.7 g/dL 6.4-8.9 [facility] RBC Auto (Bld) [#/Vol]Ordere d By: Chelsie Cortez on 10-18-2022 RBC (Bld) [#/Vol] 3.64 10*6/uL 3.60-5.00 [facility] Serum or plasma albumin/glob ulin mass ratioOrdered By: Chelsie Cortez on 10-18-2022 Albumin/Globulin [Mass ratio] 1.4 {ratio} [facility] Serum or plasma anion gap de terminationOrdered By: Chelsie Cortez on 10-18-2022 Anion gap [Moles/Vol] 9.7 mmol/L 6.0-15.0 [facility] Serum or plasma non-glucuron idated bilirubin measurement (mass/volume)Ordered By: Chelsie Cortez on 10-18-2022 Bilirubin.indirect [Mass/Vol] 0.5 mg/dL [facility] Sodium [Moles/volume] in Ser um or PlasmaOrdered By: Chelsie Cortez on 10-18-2022 Sodium [Moles/Vol] 139 mmol/L 136-145 [facility] Specific gravity Auto test s trip (U) [Rel density]Ordered By: Chelsie Cortez on 10-18-2022 Specific gravity (U) [Rel density] 1.011 1.001-1.030 [facility] Squamous epithelial cells de tection in urine sediment by light microscopyOrdered By: Chelsie Cortez on 10-18-2022 Epithelial cells.squamous LM Ql (Urine sed) 3-4 [HPF] 0-2 [facility] Urea nitrogen [Mass/volume] in Serum or PlasmaOrdered By: Chelsie Cortez on 10-18-2022 Urea nitrogen [Mass/Vol] 9 mg/dL 7-25 [facility] Urine bacteria detection by automated methodOrdered By: Chelsie Cortez on 10-18-2022 Bacteria Auto Ql (U) None seen None Seen [facility] Urine clarity by refractomet ry automatedOrdered By: Chelsie Cortez on 10-18-2022 Clarity Refractometry automated (U) Clear Clear [facility] Urine culture routineOrdered By: Chelsie Cortez on 10-18-2022 Bacteria identified Cx Nom (U) 2 Days [facility] Urine glucose measurement by automated test strip (mass/volume)Ordered By: Chelsie Cortez on 10-18-2022 Glucose Auto test strip (U) [Mass/Vol] Normal mg/dL Normal [facility] Urine hemoglobin detection b y automated test stripOrdered By: Chelsie Cortez on 10-18-2022 Hemoglobin Auto test strip Ql (U) Negative Negative [facility] Urine leukocyte esterase det ection by automated test stripOrdered By: Chelsie Cortez on 10-18-2022 Leukocyte esterase Auto test strip Ql (U) 3+ Negative [facility] Urobilinogen Auto test strip (U) [Mass/Vol]Ordered By: Chelsiemariah Cortez on 10-18-2022 Urobilinogen (U) [Mass/Vol] Normal mg/dL Normal [facility] WBC Auto (Bld) [#/Vol]Ordere d By: Chelsie Halljameson on 10-18-2022 WBC (Bld) [#/Vol] 6.3 10*3/uL 3.8-11.6 [facility] pH Auto test strip (U)Ordere d By: Chelsie Tobiassulema on 10-18-2022 pH (U) 5.5 [pH] 5.0-9.0 [facility] AMYLASEon 10-16-2022 Amylase [Catalytic activity/Vol] 42 U/L Normal 25-115 [facility] Comment on above: Performed By: #### C MP, LIPA, GRETTA #### [facility] [address] [place] [address] Dr. Kinjal Rivers CBC AUTO DIFFon 10-16-2022 BASO # 0.0 103/ul Normal 0.0-0.1 [facility] Comment on above: Performed By: #### C BC #### [facility] [address] [place] [address] Dr. Kinjal Rivers Basophils/100 WBC (Bld) 0.6 % Normal 0.2-2.0 [facility] Comment on above: Performed By: #### C BC #### [facility] [address] [place] [address] Dr. Kinjal Rivers EO # 0.1 103/ul Normal 0.0-0.7 [facility] Comment on above: Performed By: #### C BC #### [facility] [address] [place] [address] Dr. Kinjal Rivers Eosinophils/100 WBC (Bld) 2.1 % Normal 0.9-7.0 [facility] Comment on above: Performed By: #### C BC #### [facility] [address] [place] [address] Dr. Kinjal Rivers Erythrocyte distribution width (RBC) [Ratio] 12.4 % Normal 11.0-15.0 [facility] Comment on above: Performed By: #### C BC #### [facility] [address] [place] [address] Dr. Kinjal Rivers Hematocrit (Bld) [Volume fraction] 38.3 % Normal 36.0-48.0 [facility] Comment on above: Performed By: #### C BC #### [facility] [address] [place] [address] Dr. Kinjal Rivers Hemoglobin (Bld) [Mass/Vol] 12.8 g/dL Normal 12.0-16.0 [facility] Comment on above: Performed By: #### C BC #### [facility] [address] [place] [address] Dr. Kinjal Rivers IG # 0.02 10e3/ul Normal 0.00-0.03 [facility] Comment on above: Performed By: #### C BC #### [facility] [address] [place] [address] Dr. Kinjal Rivers IG % 0.3 % Normal 0.0-0.5 [facility] Comment on above: Performed By: #### C BC #### [facility] [address] [place] [address] Dr. Kinjal Rivers LYMPH # 1.5 103/ul Normal 1.2-3.8 [facility] Comment on above: Performed By: #### C BC #### [facility] [address] [place] [address] Dr. Kinjal Rivers Lymphocytes/100 WBC (Bld) 24.1 % Normal 20.5-60.0 [facility] Comment on above: Performed By: #### C BC #### [facility] [address] [place] [address] Dr. Kinjal Rivers MANUAL DIFF REQ NO Normal [facility] Comment on above: Performed By: #### C BC #### [facility] [address] [place] [address] Dr. Kinjal Rivers MCH (RBC) [Entitic mass] 32.7 pg Normal 26.7-34.0 [facility] Comment on above: Performed By: #### C BC #### [facility] [address] [address] [address] Kinjal Rivers MCHC (RBC) [Mass/Vol] 33.4 g/dL Normal 29.9-35.2 [facility] Comment on above: Performed By: #### C BC #### [facility] [address] [address] [address] Kinjal Rivers MCV (RBC) [Entitic vol] 97.7 fL Normal 81.0-99.0 [facility] Comment on above: Performed By: #### C BC #### [facility] [address] [place] [address] Dr. Kinjal Rivers MONO # 0.3 103/ul Normal 0.3-0.8 [facility] Comment on above: Performed By: #### C BC #### [facility] [address] [place] [address] Dr. Kinjal Rivers Monocytes/100 WBC (Bld) 5.5 % Normal 1.7-12.0 [facility] Comment on above: Performed By: #### C BC #### [facility] [address] [place] [address] Dr. Kinjal Rivers NEUT # 4.2 103/ul Normal 1.4-6.5 [facility] Comment on above: Performed By: #### C BC #### [facility] [address] [place] [address] Dr. Kinjal Rivers Neutrophils/100 WBC (Bld) 67.4 % Normal 43.0-75.0 [facility] Comment on above: Performed By: #### C BC #### [facility] [address] [place] [address] Dr. Kinjal Rivers Platelet mean volume (Bld) [Entitic vol] 9.2 fL Critically low 9.5-13.5 [facility] Comment on above: Performed By: #### C BC #### [facility] [address] [place] [address] Dr. Kinjal Rivers PLT 184 103/ul Normal 150-450 [facility] Comment on above: Performed By: #### C BC #### [facility] [address] [place] [address] Dr. Kinjal Rivers RBC 3.92 106/ul Critically low 4.20-5.[address] [facility] Comment on above: Performed By: #### C BC #### [facility] [address] [place] [address] Dr. Kinjal Rivers WBC 6.2 103/ul Normal 4.0-11.0 [facility] Comment on above: Performed By: #### C BC #### [facility] [address] [place] [address] Dr. Kinjal Rivers CULTURE URINEon 10-16-2022 CULTURE URINE Culture Observations : LIGHT GROWTH OF MIXED GENITAL YOGESH. NO POTENTIAL PATHOGENS SEEN. Normal [facility] Comment on above: Performed By: #### U RCX #### [facility] [address] [place] [address] Dr. Kinjal Rivers ER URINE PROFILEon Bilirubin Ql (U) Negative Normal NEGATIVE [facility] Comment on above: Performed By: #### U MICRO, ERUR #### [facility] [address] [place] [address] Dr. Kinjal Rivers Clarity (U) SL CLOUDY Abnormal CLEAR [facility] Comment on above: Performed By: #### U MICRO, ERUR #### [facility] [address] [place] [address] Dr. Kinjal Rivers Color (U) LT. YELLOW Normal YELLOW [facility] Comment on above: Performed By: #### U MICRO, ERUR #### [facility] [address] [place] [address] Dr. Kinjal Rivers ERUAHD A micrscopic examina tion will be performed if indicated. Normal [facility] Comment on above: Performed By: #### U MICRO, ERUR #### [facility] [address] [place] [address] Dr. Kinjal Rivers Glucose Ql (U) Negative Normal NEGATIVE [facility] Comment on above: Performed By: #### U MICRO, ERUR #### [facility] [address] [place], [place] [id number] Dr. Kinjal Rivers Hemoglobin Ql (U) Negative Normal NEGATIVE [facility] Comment on above: Performed By: #### U MICRO, ERUR #### [facility] [address] [place] [address] Dr. Kinjal Rivers Ketones Ql (U) Negative Normal NEGATIVE [facility] Comment on above: Performed By: #### U MICRO, ERUR #### [facility] [address] [place] [address] Dr. Kinjal Rivers LEUKOCYTES TRACE Abnormal NEGATIVE [facility] Comment on above: Performed By: #### U MICRO, ERUR #### [facility] [address] [place] [address] Dr. Kinjal Rivers Nitrite Ql (U) Negative Normal NEGATIVE [facility] Comment on above: Performed By: #### U MICRO, ERUR #### [facility] [address] [place] [address] Dr. Kinjal Rivers pH (U) 5.0 [pH] Normal 5-9 [facility] Comment on above: Performed By: #### U MICRO, ERUR #### [facility] [address] [place] [address] Dr. Kinjal Rivers SPEC GRAVITY 1.030 Abnormal 1.005-<=1.0 25 [facility] Comment on above: Performed By: #### U MICRO, ERUR #### [facility] [address] [place] [address] Dr. Kinjal Rivers UA PROTEIN Negative Normal NEGATIVE/ TRACE [facility] Comment on above: Performed By: #### U MICRO, ERUR #### [facility] [address] [place] [address] Dr. Kinjal Rivers UR MICRO IND INDICATED Normal [facility] Comment on above: Performed By: #### U MICRO, ERUR #### [facility] [address] [place] [address] Dr. Kinjal Rivers Urobilinogen Qn (U) 1.0 {José'U}/dL Normal 0.2 - 1. 0 [facility] Comment on above: Performed By: #### U MICRO, ERUR #### [facility] [address] [place] [address] Dr. Kinjal Rivers LIPASEon 10-16-2022 Lipase [Catalytic activity/Vol] 133.0 U/L Normal 73.0-393.0 [facility] Comment on above: Performed By: #### C MP, LIPA, GRETTA #### [facility] [address] [place] [address] Dr. Kinjal Rivers PROF 14(COMP METB)on 023 Albumin [Mass/Vol] 3.7 g/dL Normal 3.4-5.0 [facility] Comment on above: Performed By: #### C MP LIPA, GRETTA #### [facility] [address] [place] [address] Dr. Kinjal Rivers Albumin/Globulin [Mass ratio] 1.0 {ratio} Normal [facility] Comment on above: Performed By: #### C MP, LIPA, GRETTA #### [facility] [address] [place] [address] Dr. Kinjal Rivers ALP [Catalytic activity/Vol] 101 U/L Normal 46-116 [facility] Comment on above: Performed By: #### C MP, LIPA, GRETTA #### [facility] [address] [place] [address] Dr. Kinjal Rivers ALT [Catalytic activity/Vol] 27 U/L Normal 14-59 [facility] Comment on above: Performed By: #### C MP, LIPA, GRETTA #### [facility] [address] [place] [address] Dr. Kinjal Rivers Anion gap [Moles/Vol] 13.4 mmol/L Normal Th [facility] Comment on above: Performed By: #### C MP, LIPA, GRETTA #### [facility] [address] [place] [address] Dr. Kinjal Rivers AST [Catalytic activity/Vol] 23 U/L Normal 15-37 [facility] Comment on above: Performed By: #### C MP, LIPA, GRETTA #### [facility] [address] [place] [address] Dr. Kinjal Rivers Bilirubin [Mass/Vol] 0.6 mg/dL Normal 0.2-1.0 [facility] Comment on above: Performed By: #### C YOVANI SCHUMACHER, GRETTA #### [facility] [address] [place] [address] Dr. Kinjal Rivers Calcium [Mass/Vol] 9.1 mg/dL Normal 8.5-10.1 [facility] Comment on above: Performed By: #### C YOVANI SCHUMACHER, GRETTA #### [facility] [address] [place] [address] Dr. Kinjal Rivers Chloride [Moles/Vol] 105 mmol/L Normal 98-107 [facility] Comment on above: Performed By: #### C YOVANI SCHUMACHER, GRETTA #### [facility] [address] [place] [address] Dr. Kinjal Rivers CO2 [Moles/Vol] 25.3 mmol/L Normal 21.0-32.0 [facility] Comment on above: Performed By: #### C LANDON SCHUMACHERA, GRETTA #### [facility] [address] [place] [address] Dr. Kinjal Rivers Creatinine [Mass/Vol] 0.96 mg/dL Normal 0.55-1.02 [facility] Comment on above: Performed By: #### C YOVANI SCHUMACHER, GRETTA #### [facility] [address] [place] [address] Dr. Kinjal Rivers EGFR-AF FAROESE >60 Normal >=60 [facility] Comment on above: Performed By: #### C LANDON SCHUMACHERA, GRETTA #### [facility] [address] [place] [address] Dr. Kinjal Rivers EGFR-NON AF FAROESE >60 Normal >=60 [facility] Comment on above: Performed By: #### C WINSOME LIPA, GRETTA #### [facility] [address] [place] [address] Dr. Kinjal Rivers Globulin (S) [Mass/Vol] 3.6 g/dL Normal [facility] Comment on above: Performed By: #### C WINSOME LIPA, GRETTA #### [facility] [address] [address] [address] Kinjal Rivers Glucose [Mass/Vol] 93 mg/dL Normal 74-106 [facility] Comment on above: Performed By: #### C WINSOME LIPA, GRETTA #### [facility] [address] [address] [address] Kinjal Rivers Potassium [Moles/Vol] 3.7 mmol/L Normal 3.5-5.1 [facility] Comment on above: Performed By: #### C MP LIPA, GRETTA #### [facility] [address] [address] [address] Kinjal Rivers Protein [Mass/Vol] 7.3 g/dL Normal 6.4-8.2 [facility] Comment on above: Performed By: #### C WINSOME LIPA, GRETTA #### [facility] [address] [place] [address] Dr. Kinjal Rivers Sodium [Moles/Vol] 140 mmol/L Normal 136-145 [facility] Comment on above: Performed By: #### C WINSOME LIPA, GRETTA #### [facility] [address] [place] [address] Dr. Kinjal Rivers Urea nitrogen [Mass/Vol] 9.0 mg/dL Normal 7.0-18.0 [facility] Comment on above: Performed By: #### C WINSOME LIPA, GRETTA #### [facility] [address] [address] [address] Kinjal Rivers Urea nitrogen/Creatinine [Mass ratio] 9.4 mg/mg Normal [facility] Comment on above: Performed By: #### C MP, LIPA, GRETTA #### [facility] [address] [place] [address] Dr. Kinjal Rivers URINE MICROSCOPIC ONLYon BACTERIA TRACE Abnormal NONE SEEN [facility] Comment on above: Performed By: #### U MICRO, ERUR #### [facility] [address] [place] [address] Dr. Kinjal Rivers Bacteria identified Cx Nom (U) INDICATED Normal [facility] Comment on above: Performed By: #### U MICRO, ERUR #### [facility] [address] [address] [address] Kinjal Rivers CAST NONE SEEN Normal NONE SEEN [facility] Comment on above: Performed By: #### U MICRO, ERUR #### [facility] [address] [address] [address] Kinjal Rivers Crystals LM Nom (Urine sed) NONE SEEN Normal NONE SEEN [facility] Comment on above: Performed By: #### U MICRO, ERUR #### [facility] [address] [place] [address] Dr. Kinjal Rivers Epithelial cells LM Ql (Urine sed) FEW Abnormal NONE SEEN /RARE [facility] Comment on above: Performed By: #### U MICRO, ERUR #### [facility] [address] [place] [address] Dr. Kinjal Rivers MUCOUS NONE SEEN Normal NONE SEEN [facility] Comment on above: Performed By: #### U MICRO, ERUR #### [facility] [address] [address] [address] Kinjal Rivers RBC NONE SEEN Abnormal 0-2 [facility] Comment on above: Performed By: #### U MICRO, ERUR #### [facility] [address] [place] [address] Dr. Kinjal Rivers WBC 2-5 Abnormal NONE SEEN [facility] Comment on above: Performed By: #### U MICRO, ERUR #### [facility] [address] [place] [address] Dr. Kinjal Rivers Activated partial thrombopla stin time (aPTT) in platelet poor plasma by coagulation aOrdered By: Michael Cerda on 09-28-2022 aPTT Coag (PPP) [Time] 24.9 s 25.1-36.5 [facility] Automated erythrocytes count in urine sediment (number/area)Ordered By: Michael Cerda on 09-28-2022 RBC Auto (Urine sed) [#/Area] 0-1 [HPF] 0-4 [facility] Automated leukocytes count i n urine sediment (number/area)Ordered By: Michael Cerda on 09-28-2022 WBC Auto (Urine sed) [#/Area] 10-19 [HPF] 0-4 [facility] Basophils Auto (Bld) [#/Vol] Ordered By: Michael Cerda on 09-28-2022 Basophils (Bld) [#/Vol] 0.0 10*3/uL 0.0-0.2 [facility] Basophils/100 WBC Auto (Bld) Ordered By: Michael Cerda on 09-28-2022 Basophils/100 WBC (Bld) 0.5 % . [facility] Bilirubin Test strip Ql (U)O rdered By: Michael Cerda on 09-28-2022 Bilirubin Ql (U) Negative Negative [facility] COVID CepheidOrdered By: Janee Cerda on 09-28-2022 SARS-CoV-2 (COVID-19) Ab IA Ql Negative Negative [facility] Comment on above: This is a duplicate [employer] Xpert Xpress CoV-2/Flu/RSV Plus RNA by RT-PCR result to be used for statistical tracking purpose only. SARS-CoV-2 (COVID-19) RNA CRISTINA+probe Ql (Unsp spec) [facility] Calcium [Mass/volume] in Ser um or PlasmaOrdered By: Michael Cerda on 09-28-2022 Calcium [Mass/Vol] 9.3 mg/dL 8.6-10.3 [facility] Carbon dioxide, total [Moles /volume] in Serum or PlasmaOrdered By: Michael Cerda on 09-28-2022 CO2 [Moles/Vol] 23.7 mmol/L 21.0-31.0 [facility] Chloride [Moles/volume] in S mac or PlasmaOrdered By: Michael Cerda on 09-28-2022 Chloride [Moles/Vol] 105 mmol/L 98-107 [facility] Color Auto (U)Ordered By: Lorene Cerda on 09-28-2022 Color (U) Yellow Yellow [facility] Creatine kinase [Enzymatic a ctivity/volume] in Serum or PlasmaOrdered By: Michael Creda on 09-28-2022 CK [Catalytic activity/Vol] 60 U/L 30-223 [facility] Creatinine [Mass/volume] in Serum or PlasmaOrdered By: Michael Cerda on 09-28-2022 Creatinine [Mass/Vol] 0.81 mg/dL 0.60-1.20 [facility] Eosinophils Auto (Bld) [#/Vo l]Ordered By: Michael Cerda on 09-28-2022 Eosinophils (Bld) [#/Vol] 0.0 10*3/uL 0.0-0.45 [facility] Eosinophils/100 WBC Auto (Bl d)Ordered By: Michael Cerda on 09-28-2022 Eosinophils/100 WBC (Bld) 0.2 % . [facility] Erythrocyte distribution wid th Auto (RBC) [Ratio]Ordered By: Michael Cerda on 09-28-2022 Erythrocyte distribution width (RBC) [Ratio] 13.5 % 11.9-15.3 [facility] Glucose [Mass/volume] in Ser um or PlasmaOrdered By: iMchael Cerda on 09-28-2022 Glucose [Mass/Vol] 103 mg/dL 70-100 [facility] Comment on above: ADA recommended refe rence rangeRandom Glucose Reference Range is dependent on time and content of last meal. Glucose of more than 200 mg/dL in a nonstressed, ambulatory subject supports the diagnosis of Diabetes Mellitus. Hematocrit Auto (Bld) [Volum e fraction]Ordered By: Michael Cerda on 09-28-2022 Hematocrit (Bld) [Volume fraction] 38.9 % 34.0-46.4 [facility] Hemoglobin [Mass/volume] in BloodOrdered By: Michael Cerda 09-28-2022 Hemoglobin (Bld) [Mass/Vol] 13.2 g/dL 11.8-15.4 [facility] Ketones Auto test strip (U) [Mass/Vol]Ordered By: Michael Cerda on 09-28-2022 Ketones (U) [Mass/Vol] Negative Negative [facility] - CoagulationOrde red By: Michael Cerda on 09-28-2022 PT Coag (PPP) [Time] 12.0 s 9.0-12.9 [facility] - UrinalysisOrder ed By: Michael Cerda on 09-28-2022 Hyaline casts LM Ql (Urine sed) 0-8 [LPF] 0-8 [facility] Leukocytes [#/volume] correc nneka for nucleated erythrocytes in Blood by Automated counOrdered By: Michael Cerda on 09-28-2022 WBC corrected for nucl RBC Auto (Bld) [#/Vol] 5.1 10*3/uL 3.8-11.6 [facility] Lymphocytes Auto (Bld) [#/Vo l]Ordered By: Michael Cerda on 09-28-2022 Lymphocytes (Bld) [#/Vol] 0.6 10*3/uL 1.00-4.8 [facility] Lymphocytes/100 WBC Auto (Bl d)Ordered By: Michael Cerda on 09-28-2022 Lymphocytes/100 WBC (Bld) 11.0 % . [facility] MCH Auto (RBC) [Entitic mass ]Ordered By: Michael Cerda on 09-28-2022 MCH (RBC) [Entitic mass] 33.0 pg 24.7-34.3 [facility] MCHC Auto (RBC) [Mass/Vol]Or dered By: Michael Cerda on 09-28-2022 MCHC (RBC) [Mass/Vol] 34.0 g/dL 32.0-35.0 [facility] MCV Auto (RBC) [Entitic vol] Ordered By: Michael Cerda on 09-28-2022 MCV (RBC) [Entitic vol] 97.0 fL 80-100 [facility] Monocyte distribution width [Entitic volume] in Blood by AutomatedOrdered By: Michael Cerda on 09-28-2022 Monocyte distribution width Auto (Bld) [Entitic vol] 24.75 % 0.00-20.00 [facility] Comment on above: For adults in ED, MD W > 20.0 may be associated with a higher risk of sepsis during the first 12 hrs of hospital admission Monocytes Auto (Bld) [#/Vol] Ordered By: Michael Cerda on 09-28-2022 Monocytes (Bld) [#/Vol] 0.3 10*3/uL 0.0-0.8 [facility] Monocytes/100 WBC Auto (Bld) Ordered By: Michael Cerda on 09-28-2022 Monocytes/100 WBC (Bld) 5.8 % . [facility] Natriuretic peptide B [Mass/ Vol]Ordered By: Michael Cerda on 09-28-2022 Natriuretic peptide B (Bld) [Mass/Vol] 27.0 pg/mL 5-100 [facility] Neutrophils Auto (Bld) [#/Vo l]Ordered By: Michael Cerda on 09-28-2022 Neutrophils (Bld) [#/Vol] 4.2 10*3/uL 1.8-7.7 [facility] Neutrophils/100 WBC Auto (Bl d)Ordered By: Michael Cerda on 09-28-2022 Neutrophils/100 WBC (Bld) 82.5 % . [facility] Nitrite Test strip Ql (U)Ord ered By: Michael Cerda on 09-28-2022 Nitrite Ql (U) Negative Negative [facility] No Panel InformationOrdered By: Michael Cerda on 09-28-2022 D-Dimer Quantitative (PE/DVT) 560 ng/mL 0-243 [facility] Comment on above: The reference range [...] GFR (CKD-EPI) > 60.0 mL/Min [facility] Creatinine Clearance (Chem 119.50 [facility] Nucleated erythrocytes [Pres ence] in Blood by Automated countOrdered By: Michael Cerda on 09-28-2022 Nucleated RBC Auto Ql (Bld) 0.1 /100{WBC} 0-0.5 [facility] Platelet mean volume Auto (B ld) [Entitic vol]Ordered By: Michael Cerda on 09-28-2022 Platelet mean volume (Bld) [Entitic vol] 7.4 fL 6.3-10.7 [facility] Platelet poor plasma interna tional normalized ratio (INR) by coagulation assay (relatOrdered By: Michael Cerda on 09-28-2022 INR Coag (PPP) [Relative time] 1.0 {INR} [facility] Comment on above: INR Therapeutic Rang [...] (Bld) [#/Vol] 197 10*3/uL 150-450 [facility] Potassium [Moles/volume] in Serum or PlasmaOrdered By: Michael Cerda on 09-28-2022 Potassium [Moles/Vol] 3.7 mmol/L 3.5-5.1 [facility] Protein Auto test strip (U) [Mass/Vol]Ordered By: Michael Cerda on 09-28-2022 Protein (U) [Mass/Vol] Negative Negative [facility] RBC Auto (Bld) [#/Vol]Ordere d By: Michael Cerda on 09-28-2022 RBC (Bld) [#/Vol] 4.01 10*6/uL 3.60-5.00 [facility] Serum or plasma anion gap de terminationOrdered By: Michael Cerda on 09-28-2022 Anion gap [Moles/Vol] 13.0 mmol/L 6.0-15.0 [facility] Sodium [Moles/volume] in Ser um or PlasmaOrdered By: Michael Cerda on 09-28-2022 Sodium [Moles/Vol] 138 mmol/L 136-145 [facility] Specific gravity Auto test s trip (U) [Rel density]Ordered By: Michael Cerda on 09-28-2022 Specific gravity (U) [Rel density] 1.015 1.001-1.030 [facility] Squamous epithelial cells de tection in urine sediment by light microscopyOrdered By: Michael Cerda on 09-28-2022 Epithelial cells.squamous LM Ql (Urine sed) 3-4 [HPF] 0-2 [facility] Troponin I.cardiac [Mass/vol ume] in Serum or Plasma by Detection limit <= 0.01 ng/Ordered By: Michael Cerda on 09-28-2022 Troponin I.cardiac DL <= 0.01 ng/mL [Mass/Vol] 5.1 pg/mL 0.0-15.0 [facility] Urea nitrogen [Mass/volume] in Serum or PlasmaOrdered By: Michael Cerda on 09-28-2022 Urea nitrogen [Mass/Vol] 11 mg/dL 7-25 [facility] Urine bacteria detection by automated methodOrdered By: Michael Cerda on 09-28-2022 Bacteria Auto Ql (U) None seen None Seen [facility] Urine clarity by refractomet ry automatedOrdered By: Michael Cerda on 09-28-2022 Clarity Refractometry automated (U) Clear Clear [facility] Urine culture routineOrdered By: Michael Cerda on 09-28-2022 Bacteria identified Cx Nom (U) 2 Days [facility] Urine glucose measurement by automated test strip (mass/volume)Ordered By: Michael Cerda on 09-28-2022 Glucose Auto test strip (U) [Mass/Vol] Normal mg/dL Normal [facility] Urine hemoglobin detection b y automated test stripOrdered By: Michael Cerda on 09-28-2022 Hemoglobin Auto test strip Ql (U) Negative Negative [facility] Urine leukocyte esterase det ection by automated test stripOrdered By: Michael Cerda on 09-28-2022 Leukocyte esterase Auto test strip Ql (U) 3+ Negative [facility] Urobilinogen Auto test strip (U) [Mass/Vol]Ordered By: Michael Cerda on 09-28-2022 Urobilinogen (U) [Mass/Vol] Normal mg/dL Normal [facility] WBC Auto (Bld) [#/Vol]Ordere d By: Michael Cerda on 09-28-2022 WBC (Bld) [#/Vol] 5.1 10*3/uL 3.8-11.6 [facility] pH Auto test strip (U)Ordere d By: Michael Cerda on 09-28-2022 pH (U) 6.5 [pH] 5.0-9.0 [facility] Cholesterol [Mass/volume] in Serum or PlasmaOrdered By: Nimesh Cerda on 09-04-2022 Cholesterol [Mass/Vol] 213 mg/dL 140-200 [facility] Comment on above: Chol less than 200 m g/dl low riskChol 201-239 mg/dl borderline riskChol 240 mg/dl and greater high risk Cholesterol in LDL Calc [Mas s/Vol]Ordered By: Nimesh Cerda on 09-04-2022 Cholesterol in LDL [Mass/Vol] 126 mg/dL 0-100 [facility] Comment on above: LDL ATP III CLASSIFI CATIONLDL less than 100 mg/dL OptimalLDL 100-129 mg/dL Near or above optimalLDL 130-159 mg/dL Borderline highLDL 160-189 mg/dL HighLDL greater than 189 mg/dL Very high Cholesterol in VLDL Calc [Ma ss/Vol]Ordered By: Nimesh Cerda on 09-04-2022 Cholesterol in VLDL [Mass/Vol] 19 mg/dL [facility] Serum or plasma high density lipoprotein (HDL) cholesterol measurementOrdered By: Nimesh Cerda on 09-04-2022 Cholesterol in HDL [Mass/Vol] 67 mg/dL 35-85 [facility] Comment on above: HDL CHOL ATP-III CLA SSIFICATION Cardiovascular RiskHDL > or equal to 60 mg/dL LOWHDL < 40 mg/dL HIGH Serum or plasma total choles terol/high density lipoprotein (HDL) cholesterol mass ratOrdered By: Nimesh Cerda on 09-04-2022 Cholesterol.total/Chol esterol in HDL [Mass ratio] 3.2 {ratio} <5.0 [facility] Thyrotropin [Units/volume] i n Serum or PlasmaOrdered By: Nimesh Cerda on 09-04-2022 TSH Qn 1.74 m[IU]/L 0.45-5.33 [facility] Triglyceride [Mass/volume] i n Serum or PlasmaOrdered By: Nimesh Cerda on 09-04-2022 Triglyceride [Mass/Vol] 98 mg/dL 0-149 [facility] Comment on above: TRIG ATP III CLASSIF ICATIONTRIG less than 150 mg/dL NormalTRIG 150-199 mg/dL Borderline highTRIG 200-500 mg/dL High TRIG greater than 500 mg/dL Very highStandard traceable to the Center for Disease Conrtrol and Prevention (CDC) test method. Vitamin D+Metabolites [Mass/ volume] in Serum or PlasmaOrdered By: Nimesh Cerda on 09-04-2022 Vitamin D+Metabolites [Mass/Vol] 31.0 ng/mL 30-100 [facility] Comment on above: VITAMIN D STATUS [...] [Catalytic activity/Vol] 26 U/L 7-52 [facility] Albumin [Mass/volume] in Ser um or Plasma by Bromocresol green (BCG) dye binding methoOrdered By: Raffaele Ellsworth on 09-03-2022 Albumin BCG dye [Mass/Vol] 4.1 g/dL 3.5-5.7 [facility] Alkaline phosphatase [Enzyma tic activity/volume] in Serum or PlasmaOrdered By: Raffaele Ellsworth on 09-03-2022 ALP [Catalytic activity/Vol] 77 U/L 34-104 [facility] Amphetamine Screen Ql (U)Ord ered By: Raffaele Ellsworth on 09-03-2022 Amphetamines Ql (U) Negative Negative [facility] Aspartate aminotransferase [ Enzymatic activity/volume] in Serum or PlasmaOrdered By: Raffaele Ellsworth on 09-03-2022 AST [Catalytic activity/Vol] 29 U/L 13-39 [facility] Automated erythrocytes count in urine sediment (number/area)Ordered By: Raffaele Ellsworth on 09-03-2022 RBC Auto (Urine sed) [#/Area] 5-9 [HPF] 0-4 [facility] Automated leukocytes count i n urine sediment (number/area)Ordered By: Raffaele Ellsworth on 09-03-2022 WBC Auto (Urine sed) [#/Area] 10-19 [HPF] 0-4 [facility] Barbiturates [Presence] in U rine by Screen methodOrdered By: Raffaele Ellsworth on 09-03-2022 Barbiturates Screen Ql (U) Negative Negative [facility] Basophils Auto (Bld) [#/Vol] Ordered By: Raffaele Ellsworth on 09-03-2022 Basophils (Bld) [#/Vol] 0.0 10*3/uL 0.0-0.2 [facility] Basophils/100 WBC Auto (Bld) Ordered By: Raffaele Ellsworth on 09-03-2022 Basophils/100 WBC (Bld) 0.6 % . [facility] Benzodiazepines Screen Ql (U )Ordered By: Raffaele Ellsworth on 09-03-2022 Benzodiazepines Ql (U) Negative Negative [facility] Benzoylecgonine [Presence] i n Urine by Screen methodOrdered By: Raffaele Ellsworth on 09-03-2022 Benzoylecgonine Screen Ql (U) Negative Negative [facility] Bilirubin Test strip Ql (U)O rdered By: Raffaele Ellsworth on 09-03-2022 Bilirubin Ql (U) Negative Negative [facility] Bilirubin.total [Mass/volume ] in Serum or PlasmaOrdered By: Raffaele Ellsworth on 09-03-2022 Bilirubin [Mass/Vol] 0.4 mg/dL 0.3-1.0 [facility] Calcium [Mass/volume] in Ser um or PlasmaOrdered By: Raffaele Ellsworth on 09-03-2022 Calcium [Mass/Vol] 9.6 mg/dL 8.6-10.3 [facility] Cannabinoids [Presence] in U rine by Screen methodOrdered By: Raffaele Ellsworth on 09-03-2022 Cannabinoids Screen Ql (U) Negative Negative [facility] Comment on above: These are unconfirme d results and should not be used for legal purposes. Drug Cut-Off Concentration: AMPH 1000 ng/mL BOO 200 ng/mL HELGA 200 ng/mL COCM 300 ng/mL OP 300 ng/mL PCP 25 ng/mL THC 20 ng/mL Carbon dioxide, total [Moles /volume] in Serum or PlasmaOrdered By: Raffaele Ellsworth on 09-03-2022 CO2 [Moles/Vol] 23.8 mmol/L 21.0-31.0 [facility] Chloride [Moles/volume] in S mac or PlasmaOrdered By: Raffaele Ellsworth on 09-03-2022 Chloride [Moles/Vol] 107 mmol/L 98-107 [facility] Color Auto (U)Ordered By: Kapil Ellsworth on 09-03-2022 Color (U) Yellow Yellow [facility] Creatinine [Mass/volume] in Serum or PlasmaOrdered By: Raffaele Ellsworth on 09-03-2022 Creatinine [Mass/Vol] 0.76 mg/dL 0.60-1.20 [facility] Eosinophils Auto (Bld) [#/Vo l]Ordered By: Raffaele Ellsworth on 09-03-2022 Eosinophils (Bld) [#/Vol] 0.1 10*3/uL 0.0-0.45 [facility] Eosinophils/100 WBC Auto (Bl d)Ordered By: Raffaele Ellsworth on 09-03-2022 Eosinophils/100 WBC (Bld) 2.0 % . [facility] Erythrocyte distribution wid th Auto (RBC) [Ratio]Ordered By: Raffaele Ellsworth on 09-03-2022 Erythrocyte distribution width (RBC) [Ratio] 14.8 % 11.9-15.3 [facility] Ethanol [Mass/volume] in Ser um or PlasmaOrdered By: Raffaele Ellsworth on 09-03-2022 Ethanol [Mass/Vol] mg/dL [facility] Ethanol [Mass/Vol] TNP [facility] Comment on above: Test not performed Globulin Calc (S) [Mass/Vol] Ordered By: Raffaele Ellsworth on 09-03-2022 Globulin (S) [Mass/Vol] 2.9 g/dL [facility] Glucose [Mass/volume] in Ser um or PlasmaOrdered By: Raffaele Ellsworth on 09-03-2022 Glucose [Mass/Vol] 79 mg/dL 74-109 [facility] Comment on above: ADA recommended refe rence rangeRandom Glucose Reference Range is dependent on time and content of last meal. Glucose of more than 200 mg/dL in a nonstressed, ambulatory subject supports the diagnosis of Diabetes Mellitus. Hematocrit Auto (Bld) [Volum e fraction]Ordered By: Raffaele Ellsworth on 09-03-2022 Hematocrit (Bld) [Volume fraction] 38.3 % 34.0-46.4 [facility] Hemoglobin [Mass/volume] in BloodOrdered By: Raffaele Ellsworth on 09-03-2022 Hemoglobin (Bld) [Mass/Vol] 12.8 g/dL 11.8-15.4 [facility] Ketones Auto test strip (U) [Mass/Vol]Ordered By: Raffaele Ellsworth on 09-03-2022 Ketones (U) [Mass/Vol] Trace Negative [facility] Laboratory - Chemistry and C hemistry - challengeOrdered By: Raffaele Ellsworth on 09-03-2022 GFR/1.73 sq M.predicted MDRD (S/P/Bld) [Vol rate/Area] mL/min/{1.73_m2} [facility] Laboratory - UrinalysisOrder ed By: Raffaele Ellsworth on 09-03-2022 Hyaline casts LM Ql (Urine sed) 0-8 [LPF] 0-8 [facility] Leukocytes [#/volume] correc nneka for nucleated erythrocytes in Blood by Automated counOrdered By: Raffaele Ellsworth on 09-03-2022 WBC corrected for nucl RBC Auto (Bld) [#/Vol] 6.5 10*3/uL 3.8-11.6 [facility] Lymphocytes Auto (Bld) [#/Vo l]Ordered By: Raffaele Ellsworth on 09-03-2022 Lymphocytes (Bld) [#/Vol] 1.8 10*3/uL 1.00-4.8 [facility] Lymphocytes/100 WBC Auto (Bl d)Ordered By: Raffaele Ellsworth on 09-03-2022 Lymphocytes/100 WBC (Bld) 28.2 % . [facility] MCH Auto (RBC) [Entitic mass ]Ordered By: Raffaele Ellsworth on 09-03-2022 MCH (RBC) [Entitic mass] 32.7 pg 24.7-34.3 [facility] MCHC Auto (RBC) [Mass/Vol]Or dered By: Raffaele Ellsworth on 09-03-2022 MCHC (RBC) [Mass/Vol] 33.4 g/dL 32.0-35.0 [facility] MCV Auto (RBC) [Entitic vol] Ordered By: Raffaele Ellsworth on 09-03-2022 MCV (RBC) [Entitic vol] 97.9 fL 80-100 [facility] Monocyte distribution width [Entitic volume] in Blood by AutomatedOrdered By: Raffaele Ellsworth on 09-03-2022 Monocyte distribution width Auto (Bld) [Entitic vol] 18.00 % 0.00-20.00 [facility] Monocytes Auto (Bld) [#/Vol] Ordered By: Raffaele Ellsworth on 09-03-2022 Monocytes (Bld) [#/Vol] 0.5 10*3/uL 0.0-0.8 [facility] Monocytes/100 WBC Auto (Bld) Ordered By: Raffaele Ellsworth on 09-03-2022 Monocytes/100 WBC (Bld) 7.1 % . [facility] Neutrophils Auto (Bld) [#/Vo l]Ordered By: Raffaele Ellsworth on 09-03-2022 Neutrophils (Bld) [#/Vol] 4.0 10*3/uL 1.8-7.7 [facility] Neutrophils/100 WBC Auto (Bl d)Ordered By: Raffaele Ellsworth on 09-03-2022 Neutrophils/100 WBC (Bld) 62.1 % . [facility] Nitrite Test strip Ql (U)Ord ered By: Raffaele Ellsworth on 09-03-2022 Nitrite Ql (U) Negative Negative [facility] No Panel InformationOrdered By: Raffaele Ellsworth on 09-03-2022 Pharmacy Creatinine Clearance (Chem 126.74 [facility] Nucleated erythrocytes [Pres ence] in Blood by Automated countOrdered By: Raffaele Ellsworth on 09-03-2022 Nucleated RBC Auto Ql (Bld) 0.0 /100{WBC} 0-0.5 [facility] Opiates [Presence] in Urine by Screen methodOrdered By: Raffaele Ellsworth on 09-03-2022 Opiates Screen Ql (U) Negative Negative [facility] Phencyclidine Screen Ql (U)O rdered By: Raffaele Ellsworth on 09-03-2022 Phencyclidine Ql (U) Negative Negative [facility] Platelet mean volume Auto (B ld) [Entitic vol]Ordered By: Raffaele Ellsworth on 09-03-2022 Platelet mean volume (Bld) [Entitic vol] 7.2 fL 6.3-10.7 [facility] Platelets Auto (Bld) [#/Vol] Ordered By: Raffaele Ellsworth on 09-03-2022 Platelets (Bld) [#/Vol] 241 10*3/uL 150-450 [facility] Potassium [Moles/volume] in Serum or PlasmaOrdered By: Raffaele Ellsworth on 09-03-2022 Potassium [Moles/Vol] 4.0 mmol/L 3.5-5.1 [facility] Protein Auto test strip (U) [Mass/Vol]Ordered By: Raffaele Ellsworth on 09-03-2022 Protein (U) [Mass/Vol] Negative Negative [facility] Protein [Mass/volume] in Ser um or PlasmaOrdered By: Raffaele Ellsworth on 09-03-2022 Protein [Mass/Vol] 7.0 g/dL 6.4-8.9 [facility] RBC Auto (Bld) [#/Vol]Ordere d By: Raffaele Ellsworth on 09-03-2022 RBC (Bld) [#/Vol] 3.91 10*6/uL 3.60-5.00 [facility] Serum or plasma albumin/glob ulin mass ratioOrdered By: Raffaele Ellsworth on 09-03-2022 Albumin/Globulin [Mass ratio] 1.4 {ratio} [facility] Serum or plasma anion gap de terminationOrdered By: Raffaele Ellsworth on 09-03-2022 Anion gap [Moles/Vol] 12.2 mmol/L 6.0-15.0 [facility] Sodium [Moles/volume] in Ser um or PlasmaOrdered By: Raffaele Ellsworth on 09-03-2022 Sodium [Moles/Vol] 139 mmol/L 136-145 [facility] Specific gravity Auto test s trip (U) [Rel density]Ordered By: Raffaele Ellsworth on 09-03-2022 Specific gravity (U) [Rel density] 1.020 1.001-1.030 [facility] Squamous epithelial cells de tection in urine sediment by light microscopyOrdered By: Raffaele Ellsworth on 09-03-2022 Epithelial cells.squamous LM Ql (Urine sed) 5-9 [HPF] 0-2 [facility] Urea nitrogen [Mass/volume] in Serum or PlasmaOrdered By: Raffaele Ellsworth on 09-03-2022 Urea nitrogen [Mass/Vol] 9 mg/dL 7-25 [facility] Urine bacteria detection by automated methodOrdered By: Raffaele Ellsworth on 09-03-2022 Bacteria Auto Ql (U) None seen None Seen [facility] Urine clarity by refractomet ry automatedOrdered By: Raffaele Ellsworth on 09-03-2022 Clarity Refractometry automated (U) Clear Clear [facility] Urine culture routineOrdered By: Raffaele Ellsworth on 09-03-2022 Bacteria identified Cx Nom (U) 2 Days [facility] Urine glucose measurement by automated test strip (mass/volume)Ordered By: Raffaele Ellsworth on 09-03-2022 Glucose Auto test strip (U) [Mass/Vol] Normal mg/dL Normal [facility] Urine hemoglobin detection b y automated test stripOrdered By: Raffaele Ellsworth on 09-03-2022 Hemoglobin Auto test strip Ql (U) Trace Negative [facility] Urine leukocyte esterase det ection by automated test stripOrdered By: Raffaele Ellsworth on 09-03-2022 Leukocyte esterase Auto test strip Ql (U) 2+ Negative [facility] Urobilinogen Auto test strip (U) [Mass/Vol]Ordered By: Raffaele Ellsworth on 09-03-2022 Urobilinogen (U) [Mass/Vol] Normal mg/dL Normal [facility] WBC Auto (Bld) [#/Vol]Ordere d By: Raffaele Ellsworth on 09-03-2022 WBC (Bld) [#/Vol] 6.5 10*3/uL 3.8-11.6 [facility] pH Auto test strip (U)Ordere d By: Raffaele Ellsworth on 09-03-2022 pH (U) 5.0 [pH] 5.0-9.0 [facility] Basophils Auto (Bld) [#/Vol] Ordered By: Urbano Palma on 08-13-2022 Basophils (Bld) [#/Vol] 0.0 10*3/uL 0.0-0.2 [facility] Basophils/100 WBC Auto (Bld) Ordered By: Urbano Palam on 08-13-2022 Basophils/100 WBC (Bld) 0.3 % . [facility] Eosinophils Auto (Bld) [#/Vo l]Ordered By: Urbano Palma on 08-13-2022 Eosinophils (Bld) [#/Vol] 0.0 10*3/uL 0.0-0.45 [facility] Eosinophils/100 WBC Auto (Bl d)Ordered By: Urbano Palma on 08-13-2022 Eosinophils/100 WBC (Bld) 0.4 % . [facility] Erythrocyte distribution wid th Auto (RBC) [Ratio]Ordered By: Urbano Palma on 08-13-2022 Erythrocyte distribution width (RBC) [Ratio] 17.2 % 11.9-15.3 [facility] Hematocrit Auto (Bld) [Volum e fraction]Ordered By: Urbano Palma on 08-13-2022 Hematocrit (Bld) [Volume fraction] 30.3 % 34.0-46.4 [facility] Hemoglobin [Mass/volume] in BloodOrdered By: Urbano Palma on 08-13-2022 Hemoglobin (Bld) [Mass/Vol] 10.2 g/dL 11.8-15.4 [facility] Leukocytes [#/volume] correc nneka for nucleated erythrocytes in Blood by Automated counOrdered By: Urbano Palma on 08-13-2022 WBC corrected for nucl RBC Auto (Bld) [#/Vol] 10.0 10*3/uL 3.8-11.6 [facility] Lymphocytes Auto (Bld) [#/Vo l]Ordered By: Urbano Palma on 08-13-2022 Lymphocytes (Bld) [#/Vol] 1.7 10*3/uL 1.00-4.8 [facility] Lymphocytes/100 WBC Auto (Bl d)Ordered By: Urbano Palma on 08-13-2022 Lymphocytes/100 WBC (Bld) 16.5 % . [facility] MCH Auto (RBC) [Entitic mass ]Ordered By: Urbano Palma on 08-13-2022 MCH (RBC) [Entitic mass] 32.9 pg 24.7-34.3 [facility] MCHC Auto (RBC) [Mass/Vol]Or dered By: Urbano Palma on 08-13-2022 MCHC (RBC) [Mass/Vol] 33.6 g/dL 32.0-35.0 [facility] MCV Auto (RBC) [Entitic vol] Ordered By: Urbano Palma on 08-13-2022 MCV (RBC) [Entitic vol] 97.8 fL 80-100 [facility] Monocytes Auto (Bld) [#/Vol] Ordered By: Urbano Palma on 08-13-2022 Monocytes (Bld) [#/Vol] 0.5 10*3/uL 0.0-0.8 [facility] Monocytes/100 WBC Auto (Bld) Ordered By: Urbano Palma on 08-13-2022 Monocytes/100 WBC (Bld) 5.4 % . [facility] Neutrophils Auto (Bld) [#/Vo l]Ordered By: Urbano Palma on 08-13-2022 Neutrophils (Bld) [#/Vol] 7.7 10*3/uL 1.8-7.7 [facility] Neutrophils/100 WBC Auto (Bl d)Ordered By: Urbano Palma on 08-13-2022 Neutrophils/100 WBC (Bld) 77.4 % . [facility] Nucleated erythrocytes [Pres ence] in Blood by Automated countOrdered By: Urbano Palma on 08-13-2022 Nucleated RBC Auto Ql (Bld) 0.0 /100{WBC} 0-0.5 [facility] Platelet mean volume Auto (B ld) [Entitic vol]Ordered By: Urbano Palma on 08-13-2022 Platelet mean volume (Bld) [Entitic vol] 8.2 fL 6.3-10.7 [facility] Platelets Auto (Bld) [#/Vol] Ordered By: Urbano Palma on 08-13-2022 Platelets (Bld) [#/Vol] 125 10*3/uL 150-450 [facility] RBC Auto (Bld) [#/Vol]Ordere d By: Urbano Palma on 08-13-2022 RBC (Bld) [#/Vol] 3.10 10*6/uL 3.60-5.00 [facility] WBC Auto (Bld) [#/Vol]Ordere d By: Urbano Palma on 08-13-2022 WBC (Bld) [#/Vol] 10.0 10*3/uL 3.8-11.6 [facility] Glucose Glucometer (dC) [M ass/Vol]Ordered By: Urbano Palma on 08-12-2022 Glucose [Mass/Vol] 82 mg/dL [facility] Comment on above: Random Glucose Refer ence Range is dependent on time and content of last meal. Glucose of more than 200 mg/dL in a nonstressed, ambulatory subject supports the diagnosis of Diabetes Mellitus. No Panel InformationOrdered By: Urbano Palma on 08-12-2022 Bedside Glucose Comment Glu2: cleaned meter [facility] Amphetamine Screen Ql (U)Ord ered By: Urbano Palma on 08-11-2022 Amphetamines Ql (U) Negative Negative [facility] Automated erythrocytes count in urine sediment (number/area)Ordered By: Urbano Palma on 08-11-2022 RBC Auto (Urine sed) [#/Area] 0-1 [HPF] 0-4 [facility] Automated leukocytes count i n urine sediment (number/area)Ordered By: Urbano Palma on 08-11-2022 WBC Auto (Urine sed) [#/Area] 50-100 [HPF] 0-4 [facility] Automated urine hyaline cast s count (number/volume)Ordered By: Urbano Palma on 08-11-2022 Hyaline casts Auto (U) [#/Vol] None seen [LPF] 0-1 [facility] Barbiturates [Presence] in U rineOrdered By: Urbano Palma on 08-11-2022 Barbiturates Ql (U) Negative Negative [facility] Benzodiazepines [Presence] i n UrineOrdered By: Urbano Palma on 08-11-2022 Benzodiazepines Ql (U) Negative Negative [facility] Bilirubin Test strip Ql (U)O rdered By: Urbano Palma on 08-11-2022 Bilirubin Ql (U) Negative Negative [facility] Casts typing in urine sedime nt by light microscopyOrdered By: Urbano Palma on 08-11-2022 Casts LM Nom (Urine sed) None seen [LPF] None Seen [facility] Color Auto (U)Ordered By: Mago Palma on 08-11-2022 Color (U) Yellow Yellow [facility] Glucose [Mass/volume] in Ser um or PlasmaOrdered By: Urbano Palma on 08-11-2022 Glucose [Mass/Vol] 69 mg/dL 70-100 [facility] Comment on above: ADA recommended refe rence rangeRandom Glucose Reference Range is dependent on time and content of last meal. Glucose of more than 200 mg/dL in a nonstressed, ambulatory subject supports the diagnosis of Diabetes Mellitus. Ketones Auto test strip (U) [Mass/Vol]Ordered By: Urbano Palma on 08-11-2022 Ketones (U) [Mass/Vol] Trace Negative [facility] Laboratory - Drug toxicology Ordered By: Urbano Palma on 08-11-2022 Opiates Ql (U) Negative Negative [facility] Nitrite Test strip Ql (U)Ord ered By: Urbano Palma on 08-11-2022 Nitrite Ql (U) Negative Negative [facility] Phencyclidine Screen Ql (U)O rdered By: Urbano Palma on 08-11-2022 Phencyclidine Ql (U) Negative Negative [facility] Comment on above: These are unconfirme d results and should not be used for legal purposes. Drug Cut-Off Concentration: AMPH 1000 ng/mL BOO 200 ng/mL HELGA 200 ng/mL COCM 300 ng/mL OP 300 ng/mL PCP 25 ng/mL Protein Auto test strip (U) [Mass/Vol]Ordered By: Urbano Palma on 08-11-2022 Protein (U) [Mass/Vol] 30 mg/dL Negative [facility] Reagin Ab [Presence] in Seru m by RPROrdered By: Urbano Palma on 08-11-2022 Reagin Ab RPR Ql (S) Non-Reactive Non Reactive [facility] Comment on above: Performed at: [address] [id number] Director: Prabhakar Warren PhD, Phone: [phone] Specific gravity Auto test s trip (U) [Rel density]Ordered By: Urbano Palma on 08-11-2022 Specific gravity (U) [Rel density] 1.021 1.001-1.030 [facility] Squamous epithelial cells de tection in urine sediment by light microscopyOrdered By: Urbano Palma on 08-11-2022 Epithelial cells.squamous LM Ql (Urine sed) 5-9 [HPF] 0-2 [facility] Urine bacteria detection by automated methodOrdered By: Urbano Palma on 08-11-2022 Bacteria Auto Ql (U) 1+ None Seen [facility] Urine clarity by refractomet ry automatedOrdered By: Urbano Palma on 08-11-2022 Clarity Refractometry automated (U) Cloudy Clear [facility] Urine cocaine detectionOrder ed By: Urbano Palma on 08-11-2022 Cocaine Ql (U) Negative Negative [facility] Urine culture routineOrdered By: Urbano Palma on 08-11-2022 Bacteria identified Cx Nom (U) Cinthya albicans [facility] Urine glucose measurement by automated test strip (mass/volume)Ordered By: Urbano Palma on 08-11-2022 Glucose Auto test strip (U) [Mass/Vol] Normal mg/dL Normal [facility] Urine hemoglobin detection b y automated test stripOrdered By: Urbano Palma on 08-11-2022 Hemoglobin Auto test strip Ql (U) Negative Negative [facility] Urine leukocyte esterase det ection by automated test stripOrdered By: Urbano Palma on 08-11-2022 Leukocyte esterase Auto test strip Ql (U) 3+ Negative [facility] Urobilinogen Auto test strip (U) [Mass/Vol]Ordered By: Urbano Palma on 08-11-2022 Urobilinogen (U) [Mass/Vol] Normal mg/dL Normal [facility] pH Auto test strip (U)Ordere d By: Urbano Palma on 08-11-2022 pH (U) 5.5 [pH] 5.0-9.0 [facility] Albumin [Mass/volume] in Ser um or PlasmaOrdered By: CANDICE Cody on 08-02-2022 Albumin [Mass/Vol] 2.7 g/dL 3.2-5.5 [facility] Basophils Auto (Bld) [#/Vol] Ordered By: CANDICE Cody on 08-02-2022 Basophils (Bld) [#/Vol] 0.0 10*3/uL 0.0-0.2 [facility] Basophils/100 WBC Auto (Bld) Ordered By: CANDICE Cody on 08-02-2022 Basophils/100 WBC (Bld) 0.3 % . [facility] Creatinine and Glomerular fi ltration rate.predicted panel (S/P/Bld)Ordered By: CANDICE Cody on 08-02-2022 Creatinine [Mass/Vol] 0.64 mg/dL 0.44-1.03 [facility] Eosinophils Auto (Bld) [#/Vo l]Ordered By: CANDICE Cody on 08-02-2022 Eosinophils (Bld) [#/Vol] 0.1 10*3/uL 0.0-0.45 [facility] Eosinophils/100 WBC Auto (Bl d)Ordered By: CANDICE Cody on 08-02-2022 Eosinophils/100 WBC (Bld) 0.8 % . [facility] Erythrocyte distribution wid th Auto (RBC) [Ratio]Ordered By: CANDICE Cody on 08-02-2022 Erythrocyte distribution width (RBC) [Ratio] 17.8 % 11.9-15.3 [facility] Estimated glomerular filtrat ion rate (GFR) non- AmericanOrdered By: JASON Cody on 08-02-2022 GFR/1.73 sq M.predicted among non-blacks MDRD (S/P/Bld) [Vol rate/Area] > 60 mL/Min [facility] Globulin Calc (S) [Mass/Vol] Ordered By: CANDICE Cody on 08-02-2022 Globulin (S) [Mass/Vol] 3.1 g/dL [facility] Hematocrit Auto (Bld) [Volum e fraction]Ordered By: CANDICE Cody on 08-02-2022 Hematocrit (Bld) [Volume fraction] 34.8 % 34.0-46.4 [facility] Hemoglobin [Mass/volume] in BloodOrdered By: CANDICE Cody on 08-02-2022 Hemoglobin (Bld) [Mass/Vol] 11.5 g/dL 11.8-15.4 [facility] Leukocytes [#/volume] correc nneka for nucleated erythrocytes in Blood by Automated counOrdered By: CANDICE Cody on 08-02-2022 WBC corrected for nucl RBC Auto (Bld) [#/Vol] 9.1 10*3/uL 3.8-11.6 [facility] Lymphocytes Auto (Bld) [#/Vo l]Ordered By: CANDICE Cody on 08-02-2022 Lymphocytes (Bld) [#/Vol] 1.6 10*3/uL 1.00-4.8 [facility] Lymphocytes/100 WBC Auto (Bl d)Ordered By: CANDICE Cody on 08-02-2022 Lymphocytes/100 WBC (Bld) 17.0 % . [facility] MCH Auto (RBC) [Entitic mass ]Ordered By: CANDICE Cody on 08-02-2022 MCH (RBC) [Entitic mass] 32.3 pg 24.7-34.3 [facility] MCHC Auto (RBC) [Mass/Vol]Or dered By: CANDICE Cody on 08-02-2022 MCHC (RBC) [Mass/Vol] 33.2 g/dL 32.0-35.0 [facility] MCV Auto (RBC) [Entitic vol] Ordered By: CANDICE Cody on 08-02-2022 MCV (RBC) [Entitic vol] 97.4 fL 80-100 [facility] Monocytes Auto (Bld) [#/Vol] Ordered By: CANDICE Cody on 08-02-2022 Monocytes (Bld) [#/Vol] 0.6 10*3/uL 0.0-0.8 [facility] Monocytes/100 WBC Auto (Bld) Ordered By: CANDICE Cody on 08-02-2022 Monocytes/100 WBC (Bld) 6.8 % . [facility] Neutrophils Auto (Bld) [#/Vo l]Ordered By: CANDICE Cody on 08-02-2022 Neutrophils (Bld) [#/Vol] 6.9 10*3/uL 1.8-7.7 [facility] Neutrophils/100 WBC Auto (Bl d)Ordered By: CANDICE Cody on 08-02-2022 Neutrophils/100 WBC (Bld) 75.1 % . [facility] No Panel InformationOrdered By: CANDICE Cody on 08-02-2022 Estimated GFR () > 60 mL/Min [facility] Comment on above: GFR estimated refere nce range: According to KDOQI guidelines, <60 ml/min/1.73m2 is sufficient to diagnose a patient with chronic kidney disease. Pharmacy Creatinine Clearance (Chem 152.15 [facility] Nucleated erythrocytes [Pres ence] in Blood by Automated countOrdered By: CANDICE Cody on 08-02-2022 Nucleated RBC Auto Ql (Bld) 0.0 /100{WBC} 0-0.5 [facility] Platelet mean volume Auto (B ld) [Entitic vol]Ordered By: CANDICE Cody on 08-02-2022 Platelet mean volume (Bld) [Entitic vol] 8.2 fL 6.3-10.7 [facility] Platelets Auto (Bld) [#/Vol] Ordered By: CANDICE Cody on 08-02-2022 Platelets (Bld) [#/Vol] 130 10*3/uL 150-450 [facility] Protein [Mass/volume] in Ser um or PlasmaOrdered By: CANDICE Cody on 08-02-2022 Protein [Mass/Vol] 5.8 g/dL 6.1-7.9 [facility] RBC Auto (Bld) [#/Vol]Ordere d By: CANDICE Cody on 08-02-2022 RBC (Bld) [#/Vol] 3.57 10*6/uL 3.60-5.00 [facility] Reagin Ab [Presence] in Seru m by RPROrdered By: CANDICE Cody on 08-02-2022 Reagin Ab RPR Ql (S) Non-Reactive Non Reactive [facility] Comment on above: Performed at: [place] [id number] Director: Prabhakar Warren PhD, Phone: [phone] Serum or plasma alanine cox otransferase measurement without P-5'-P (enzymatic activiOrdered By: CANDICE Cody on 08-02-2022 ALT No additional P-5'-P [Catalytic activity/Vol] 12 U/L 10-60 [facility] Serum or plasma albumin/glob ulin mass ratioOrdered By: CANDCIE Cody on 08-02-2022 Albumin/Globulin [Mass ratio] 0.9 {ratio} [facility] Serum or plasma alkaline sam sphatase measurement (enzymatic activity/volume)Ordered By: CANDICE Cody on 08-02-2022 ALP [Catalytic activity/Vol] 97 U/L 32-92 [facility] Serum or plasma anion gap de terminationOrdered By: CANDICE Cody on 08-02-2022 Anion gap [Moles/Vol] 11.3 mmol/L 6.0-15.0 [facility] Serum or plasma aspartate am inotransferase measurement (enzymatic activity/volume)Ordered By: CANDICE Cody on 08-02-2022 AST [Catalytic activity/Vol] 19 U/L 10-42 [facility] Serum or plasma calcium katie urement (mass/volume)Ordered By: CANDICE Cody on 08-02-2022 Calcium [Mass/Vol] 9.6 mg/dL 8.2-10.2 [facility] Serum or plasma chloride victorino surement (moles/volume)Ordered By: CANDICE Cody on 08-02-2022 Chloride [Moles/Vol] 107 mmol/L 95-114 [facility] Serum or plasma glucose katie urement (mass/volume)Ordered By: CANDICE Cody on 08-02-2022 Glucose [Mass/Vol] 84 mg/dL 70-100 [facility] Comment on above: ADA recommended refe rence rangeRandom Glucose Reference Range is dependent on time and content of last meal. Glucose of more than 200 mg/dL in a nonstressed, ambulatory subject supports the diagnosis of Diabetes Mellitus. Serum or plasma potassium me asurement (moles/volume)Ordered By: CANDICE Cody on 08-02-2022 Potassium [Moles/Vol] 3.8 mmol/L 3.5-5.1 [facility] Serum or plasma sodium measu rement (moles/volume)Ordered By: CANDICE Cody on 08-02-2022 Sodium [Moles/Vol] 135 mmol/L 136-146 [facility] Serum or plasma total biliru bin measurement (mass/volume)Ordered By: CANDICE Cody on 08-02-2022 Bilirubin [Mass/Vol] 0.6 mg/dL 0.3-1.2 [facility] Serum or plasma total carbon dioxide measurement (moles/volume)Ordered By: JASON Cody on 08-02-2022 CO2 [Moles/Vol] 20.5 mmol/L 22.0-30.0 [facility] Serum or plasma urea nitroge n measurement (mass/volume)Ordered By: CANDICE Cody on 08-02-2022 Urea nitrogen [Mass/Vol] 6 mg/dL 9-23 [facility] Serum or plasma uric acid me asurement (mass/volume)Ordered By: CANDICE Cody on 08-02-2022 Urate [Mass/Vol] 4.5 mg/dL 2.6-7.2 [facility] WBC Auto (Bld) [#/Vol]Ordere d By: CANDICE Cody on 08-02-2022 WBC (Bld) [#/Vol] 9.1 10*3/uL 3.8-11.6 [facility] Amphetamine Screen Ql (U)Ord ered By: CANDICE Cody on 08-01-2022 Amphetamines Ql (U) Negative Negative [facility] Automated erythrocytes count in urine sediment (number/area)Ordered By: CANDICE Cody on 08-01-2022 RBC Auto (Urine sed) [#/Area] 3-4 [HPF] 0-4 [facility] Automated leukocytes count i n urine sediment (number/area)Ordered By: CANDICE Cody on 08-01-2022 WBC Auto (Urine sed) [#/Area] 50-100 [HPF] 0-4 [facility] Barbiturates [Presence] in U rineOrdered By: CANDICE Cody on 08-01-2022 Barbiturates Ql (U) Negative Negative [facility] Benzodiazepines [Presence] i n UrineOrdered By: CANDICE Cody on 08-01-2022 Benzodiazepines Ql (U) Negative Negative [facility] Bilirubin Test strip Ql (U)O rdered By: CANDICE Cody on 08-01-2022 Bilirubin Ql (U) Negative Negative [facility] Color Auto (U)Ordered By: MD CAMILLE Cody on 08-01-2022 Color (U) Yellow Yellow [facility] Ketones Auto test strip (U) [Mass/Vol]Ordered By: CANDICE Cody on 08-01-2022 Ketones (U) [Mass/Vol] Negative Negative [facility] Laboratory - Drug toxicology Ordered By: CANDICE Cody on 08-01-2022 Opiates Ql (U) Negative Negative [facility] Laboratory - UrinalysisOrder ed By: CANDICE Cody on 08-01-2022 Hyaline casts LM Ql (Urine sed) 0-8 [LPF] 0-8 [facility] Nitrite Test strip Ql (U)Ord ered By: CANDICE Cody on 08-01-2022 Nitrite Ql (U) Negative Negative [facility] Phencyclidine Screen Ql (U)O rdered By: CANDICE Cody on 08-01-2022 Phencyclidine Ql (U) Negative Negative [facility] Comment on above: These are unconfirme d results and should not be used for legal purposes. Drug Cut-Off Concentration: AMPH 1000 ng/mL BOO 200 ng/mL HELGA 200 ng/mL COCM 300 ng/mL OP 300 ng/mL PCP 25 ng/mL Protein Auto test strip (U) [Mass/Vol]Ordered By: CANDICE Cody on 08-01-2022 Protein (U) [Mass/Vol] Negative [facility] Specific gravity Auto test s trip (U) [Rel density]Ordered By: CANDICE Cody on 08-01-2022 Specific gravity (U) [Rel density] 1.014 1.001-1.030 [facility] Squamous epithelial cells de tection in urine sediment by light microscopyOrdered By: CANDICE Cody on 08-01-2022 Epithelial cells.squamous LM Ql (Urine sed) 5-9 [HPF] 0-2 [facility] Urine bacteria detection by automated methodOrdered By: CANDICE Cody on 08-01-2022 Bacteria Auto Ql (U) None seen None Seen [facility] Urine clarity by refractomet ry automatedOrdered By: CANDICE Cody on 08-01-2022 Clarity Refractometry automated (U) Cloudy Clear [facility] Urine cocaine detectionOrder ed By: CANDICE Cody on 08-01-2022 Cocaine Ql (U) Negative Negative [facility] Urine culture routineOrdered By: CANDICE Cody on 08-01-2022 Bacteria identified Cx Nom (U) 2 Days [facility] Bacteria identified Cx Nom (U) 2 Days [facility] Urine glucose measurement by automated test strip (mass/volume)Ordered By: JASON Cody on 08-01-2022 Glucose Auto test strip (U) [Mass/Vol] Normal mg/dL Normal [facility] Urine hemoglobin detection b y automated test stripOrdered By: CANDICE Cody on 08-01-2022 Hemoglobin Auto test strip Ql (U) Negative Negative [facility] Urine leukocyte esterase det ection by automated test stripOrdered By: CANDICE Cody on 08-01-2022 Leukocyte esterase Auto test strip Ql (U) 4+ Negative [facility] Urobilinogen Auto test strip (U) [Mass/Vol]Ordered By: CANDICE Cody on 08-01-2022 Urobilinogen (U) [Mass/Vol] Normal mg/dL Normal [facility] pH Auto test strip (U)Ordere d By: CANDICE Cody on 08-01-2022 pH (U) 5.5 [pH] 5.0-9.0 [facility] S. agalactiae Org specific c x Ql (Unsp spec)Ordered By: Urbano Palma on 07-25-2022 Group B Streptococcus Culture Strep. agalactiae Grp B [facility] Group B Streptococcus Culture Strep. agalactiae Grp B [facility] Office Visit (Cardiology)on 07-22-2022 Follow-up visit [...] FACP, FHRS with a device check I, Sheyal Castillo LPN, shelton scribing for and in the presence of, Dr. Rita Olivia MD, FACC, FACP, FHRS. Chief Complaint Patient here for 6 month follow-up with [facility]. 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 Personal review of ECG and cardiac data reviewed . Outside records: OV with me December 2021 Device check December 2021 ECG December 2021 Device Check: Today. [employer] 7299 pacemaker. Estimate longevity device over 7 years. [...] Overweight AHA (more content not included)... Normal [employer] [facility] Tobacco Screening.on 023 Fall risk assessment a) No falls within the last year [facility] [employer] DO Work Phone: Tobacco use status [facility] b) No [facility] [employer] DO Work Phone: Tobacco Screening. Yes [facility] [address] DO Work Phone: Amphetamine Screen Ql (U)Ord ered By: Michael Cerda on 07-15-2022 Amphetamines Ql (U) Negative Negative [facility] Automated erythrocytes count in urine sediment (number/area)Ordered By: Michael Cerda on 07-15-2022 RBC Auto (Urine sed) [#/Area] 0-1 [HPF] 0-4 [facility] Automated leukocytes count i n urine sediment (number/area)Ordered By: Michael Cerda on 07-15-2022 WBC Auto (Urine sed) [#/Area] 50-100 [HPF] 0-4 [facility] Barbiturates [Presence] in U rineOrdered By: Michael Cerda on 07-15-2022 Barbiturates Ql (U) Negative Negative [facility] Basophils Auto (Bld) [#/Vol] Ordered By: Michael Cerda on 07-15-2022 Basophils (Bld) [#/Vol] 0.0 10*3/uL 0.0-0.2 [facility] Basophils/100 WBC Auto (Bld) Ordered By: Mcihael Cerda on 07-15-2022 Basophils/100 WBC (Bld) 0.4 % . [facility] Benzodiazepines [Presence] i n UrineOrdered By: Michael Cerda on 07-15-2022 Benzodiazepines Ql (U) Negative Negative [facility] Bilirubin Test strip Ql (U)O rdered By: Michael Cerda on 07-15-2022 Bilirubin Ql (U) Negative Negative [facility] Body fluid albumin measureme nt (mass/volume)Ordered By: Michael Cerda on 07-15-2022 Albumin (Body fld) [Mass/Vol] 2.9 g/dL 3.2-5.5 [facility] Cannabinoids [Presence] in U rine by Screen methodOrdered By: Michael Cerda on 07-15-2022 Cannabinoids Screen Ql (U) Negative Negative [facility] Comment on above: These are unconfirme d results and should not be used for legal purposes. Drug Cut-Off Concentration: AMPH 1000 ng/mL BOO 200 ng/mL HELGA 200 ng/mL COCM 300 ng/mL OP 300 ng/mL PCP 25 ng/mL THC 20 ng/mL Cholesterol [Mass/volume] in Serum or PlasmaOrdered By: Eduardo Swain on 07-15-2022 Cholesterol [Mass/Vol] 250 mg/dL 140-200 [facility] Comment on above: Chol less than 200 m g/dl low riskChol 201-239 mg/dl borderline riskChol 240 mg/dl and greater high risk Cholesterol in LDL Calc [Mas s/Vol]Ordered By: Eduardo Swain on 07-15-2022 Cholesterol in LDL [Mass/Vol] 138 mg/dL 0-100 [facility] Comment on above: LDL ATP III CLASSIFI CATIONLDL less than 100 mg/dL OptimalLDL 100-129 mg/dL Near or above optimalLDL 130-159 mg/dL Borderline highLDL 160-189 mg/dL HighLDL greater than 189 mg/dL Very high Cholesterol in VLDL Calc [Ma ss/Vol]Ordered By: Eduardo Swain on 07-15-2022 Cholesterol in VLDL [Mass/Vol] 40 mg/dL [facility] Color Auto (U)Ordered By: Lorene Cerda on 07-15-2022 Color (U) Yellow Yellow [facility] Creatinine and Glomerular fi ltration rate.predicted panel (S/P/Bld)Ordered By: Michael Cerda on 07-15-2022 Creatinine [Mass/Vol] 0.66 mg/dL 0.44-1.03 [facility] Eosinophils Auto (Bld) [#/Vo l]Ordered By: Michael Cerda on 07-15-2022 Eosinophils (Bld) [#/Vol] 0.0 10*3/uL 0.0-0.45 [facility] Eosinophils/100 WBC Auto (Bl d)Ordered By: Michael Cerda on 07-15-2022 Eosinophils/100 WBC (Bld) 0.4 % . [facility] Erythrocyte distribution wid th Auto (RBC) [Ratio]Ordered By: Michael Cerda on 07-15-2022 Erythrocyte distribution width (RBC) [Ratio] 18.8 % 11.9-15.3 [facility] Estimated glomerular filtrat ion rate (GFR) non- AmericanOrdered By: Michael Cerda on 07-15-2022 GFR/1.73 sq M.predicted among non-blacks MDRD (S/P/Bld) [Vol rate/Area] > 60 mL/Min [facility] Globulin Calc (S) [Mass/Vol] Ordered By: Michael Cerda on 07-15-2022 Globulin (S) [Mass/Vol] 3.2 g/dL [facility] Hematocrit Auto (Bld) [Volum e fraction]Ordered By: Michael Cerda on 07-15-2022 Hematocrit (Bld) [Volume fraction] 34.4 % 34.0-46.4 [facility] Hemoglobin [Mass/volume] in BloodOrdered By: Michael Cerda on 07-15-2022 Hemoglobin (Bld) [Mass/Vol] 11.3 g/dL 11.8-15.4 [facility] Ketones Auto test strip (U) [Mass/Vol]Ordered By: Michael Cerda on 07-15-2022 Ketones (U) [Mass/Vol] 2+ Negative [facility] Ordered By: Michael Cerda on 07-15-2022 Opiates Ql (U) Negative Negative [facility] Laboratory - UrinalysisOrder ed By: Michael Cerda on 07-15-2022 Hyaline casts LM Ql (Urine sed) 0-8 [LPF] 0-8 [facility] Leukocytes [#/volume] correc nneka for nucleated erythrocytes in Blood by Automated counOrdered By: Michael Cerda on 07-15-2022 WBC corrected for nucl RBC Auto (Bld) [#/Vol] 7.8 10*3/uL 3.8-11.6 [facility] Lymphocytes Auto (Bld) [#/Vo l]Ordered By: Michael Cerda on 07-15-2022 Lymphocytes (Bld) [#/Vol] 1.2 10*3/uL 1.00-4.8 [facility] Lymphocytes/100 WBC Auto (Bl d)Ordered By: Michael Cerda on 07-15-2022 Lymphocytes/100 WBC (Bld) 15.2 % . [facility] MCH Auto (RBC) [Entitic mass ]Ordered By: Michael Cerda on 07-15-2022 MCH (RBC) [Entitic mass] 31.8 pg 24.7-34.3 [facility] MCHC Auto (RBC) [Mass/Vol]Or dered By: Michael Cerda on 07-15-2022 MCHC (RBC) [Mass/Vol] 33.0 g/dL 32.0-35.0 [facility] MCV Auto (RBC) [Entitic vol] Ordered By: Michael Cerda on 07-15-2022 MCV (RBC) [Entitic vol] 96.4 fL 80-100 [facility] Monocyte distribution width [Entitic volume] in Blood by AutomatedOrdered By: Michael Cerda on 07-15-2022 Monocyte distribution width Auto (Bld) [Entitic vol] 19.01 % 0.00-20.00 [facility] Monocytes Auto (Bld) [#/Vol] Ordered By: Michael Cerda on 07-15-2022 Monocytes (Bld) [#/Vol] 0.4 10*3/uL 0.0-0.8 [facility] Monocytes/100 WBC Auto (Bld) Ordered By: Michael Cerda on 07-15-2022 Monocytes/100 WBC (Bld) 5.1 % . [facility] Neutrophils Auto (Bld) [#/Vo l]Ordered By: Michael Cerda on 07-15-2022 Neutrophils (Bld) [#/Vol] 6.1 10*3/uL 1.8-7.7 [facility] Neutrophils/100 WBC Auto (Bl d)Ordered By: Michael Cerda on 07-15-2022 Neutrophils/100 WBC (Bld) 78.9 % . [facility] Nitrite Test strip Ql (U)Ord ered By: Michael Cerda on 07-15-2022 Nitrite Ql (U) Negative Negative [facility] No Panel InformationOrdered By: Eduardo Swain on 07-15-2022 25-Hydroxy Vitamin D Total 38.8 ng/mL 30-100 [facility] Comment on above: VITAMIN D STATUS 25( [place])VITAMIN D RANGE (ng/mL) Deficient <20 Insufficient 20 to <30Sufficient 30 to 100Reference: Franklyn MF,Benjamin GRAF, Andreina MARQUEZ, et al. Evaluation,treatment, and prevention of vitamin D deficiency; an Endocrine Society clinical practice guideline. JCEM. 2010; 96(7):1911-30. No Panel InformationOrdered By: Michael Cerda on 07-15-2022 Estimated GFR () > 60 mL/Min [facility] Comment on above: GFR estimated refere nce range: According to KDOQI guidelines, <60 ml/min/1.73m2 is sufficient to diagnose a patient with chronic kidney disease. Pharmacy Creatinine Clearance (Chem 148.00 [facility] Nucleated erythrocytes [Pres ence] in Blood by Automated countOrdered By: Michael Cerda on 07-15-2022 Nucleated RBC Auto Ql (Bld) 0.1 /100{WBC} 0-0.5 [facility] Phencyclidine Screen Ql (U)O rdered By: Michael Cerda on 07-15-2022 Phencyclidine Ql (U) Negative Negative [facility] Platelet mean volume Auto (B ld) [Entitic vol]Ordered By: Michael Cerda on 07-15-2022 Platelet mean volume (Bld) [Entitic vol] 7.9 fL 6.3-10.7 [facility] Platelets Auto (Bld) [#/Vol] Ordered By: Michael Cerda on 07-15-2022 Platelets (Bld) [#/Vol] 157 10*3/uL 150-450 [facility] Protein Auto test strip (U) [Mass/Vol]Ordered By: Michael Cerda on 07-15-2022 Protein (U) [Mass/Vol] Negative Negative [facility] Protein [Mass/volume] in Ser um or PlasmaOrdered By: Michael Cerda on 07-15-2022 Protein [Mass/Vol] 6.1 g/dL 6.1-7.9 [facility] RBC Auto (Bld) [#/Vol]Ordere d By: Michael Cerda on 07-15-2022 RBC (Bld) [#/Vol] 3.57 10*6/uL 3.60-5.00 [facility] Serum or plasma alanine cox otransferase measurement without P-5'-P (enzymatic activiOrdered By: Michael Cerda on 07-15-2022 ALT No additional P-5'-P [Catalytic activity/Vol] 14 U/L 10-60 [facility] Serum or plasma albumin/glob ulin mass ratioOrdered By: Michael Cerda on 07-15-2022 Albumin/Globulin [Mass ratio] 0.9 {ratio} [facility] Serum or plasma alkaline sma sphatase measurement (enzymatic activity/volume)Ordered By: Michael Cerda on 07-15-2022 ALP [Catalytic activity/Vol] 83 U/L 32-92 [facility] Serum or plasma anion gap de terminationOrdered By: Michael Cerda on 07-15-2022 Anion gap [Moles/Vol] 13.3 mmol/L 6.0-15.0 [facility] Serum or plasma aspartate am inotransferase measurement (enzymatic activity/volume)Ordered By: Michael Cerda on 07-15-2022 AST [Catalytic activity/Vol] 22 U/L 10-42 [facility] Serum or plasma calcium katie urement (mass/volume)Ordered By: Michael Cerda on 07-15-2022 Calcium [Mass/Vol] 9.5 mg/dL 8.2-10.2 [facility] Serum or plasma chloride victorino surement (moles/volume)Ordered By: Michael Cerda on 07-15-2022 Chloride [Moles/Vol] 104 mmol/L 95-114 [facility] Serum or plasma ethanol katie urement (mass/volume)Ordered By: Michael Cerda on 07-15-2022 Ethanol [Mass/Vol] mg/dL [facility] Ethanol [Mass/Vol] TNP [facility] Comment on above: Test not performed Serum or plasma glucose katie urement (mass/volume)Ordered By: Michael Cerda on 07-15-2022 Glucose [Mass/Vol] 82 mg/dL 70-100 [facility] Comment on above: ADA recommended refe rence rangeRandom Glucose Reference Range is dependent on time and content of last meal. Glucose of more than 200 mg/dL in a nonstressed, ambulatory subject supports the diagnosis of Diabetes Mellitus. Serum or plasma high density lipoprotein (HDL) cholesterol measurementOrdered By: Eduardo Swain on 07-15-2022 Cholesterol in HDL [Mass/Vol] 72 mg/dL 35-85 [facility] Comment on above: HDL CHOL ATP-III CLA SSIFICATION Cardiovascular RiskHDL > or equal to 60 mg/dL LOWHDL < 40 mg/dL HIGH Serum or plasma potassium me asurement (moles/volume)Ordered By: Michael Cerda on 07-15-2022 Potassium [Moles/Vol] 3.6 mmol/L 3.5-5.1 [facility] Serum or plasma sodium measu rement (moles/volume)Ordered By: Michael Cerda on 07-15-2022 Sodium [Moles/Vol] 135 mmol/L 136-146 [facility] Serum or plasma total biliru bin measurement (mass/volume)Ordered By: Michael Cerda on 07-15-2022 Bilirubin [Mass/Vol] 0.6 mg/dL 0.3-1.2 [facility] Serum or plasma total carbon dioxide measurement (moles/volume)Ordered By: Michael Cerda on 07-15-2022 CO2 [Moles/Vol] 21.3 mmol/L 22.0-30.0 [facility] Serum or plasma total choles terol/high density lipoprotein (HDL) cholesterol mass ratOrdered By: Eduardo Swain on 07-15-2022 Cholesterol.total/Chol esterol in HDL [Mass ratio] 3.5 {ratio} <5.0 [facility] Serum or plasma urea nitroge n measurement (mass/volume)Ordered By: Michael Cerda on 07-15-2022 Urea nitrogen [Mass/Vol] 4 mg/dL 9-23 [facility] Specific gravity Auto test s trip (U) [Rel density]Ordered By: Michael Cerda on 07-15-2022 Specific gravity (U) [Rel density] 1.010 1.001-1.030 [facility] Squamous epithelial cells de tection in urine sediment by light microscopyOrdered By: Michael Cerda on 07-15-2022 Epithelial cells.squamous LM Ql (Urine sed) 5-9 [HPF] 0-2 [facility] TSH DL <= 0.005 mIU/L QnOrde red By: Eduardo Swain on 07-15-2022 TSH Qn 2.04 m[IU]/L 0.45-5.33 [facility] Triglyceride [Mass/volume] i n Serum or PlasmaOrdered By: Eduardo Swain on 07-15-2022 Triglyceride [Mass/Vol] 200 mg/dL 35-149 [facility] Comment on above: TRIG ATP III CLASSIF ICATIONTRIG less than 150 mg/dL NormalTRIG 150-199 mg/dL Borderline highTRIG 200-500 mg/dL High TRIG greater than 500 mg/dL Very highStandard traceable to the Center for Disease Conrtrol and Prevention (CDC) test method. Urine bacteria detection by automated methodOrdered By: Michael Cerda on 07-15-2022 Bacteria Auto Ql (U) None seen None Seen [facility] Urine clarity by refractomet ry automatedOrdered By: Michael Cerda on 07-15-2022 Clarity Refractometry automated (U) Cloudy Clear [facility] Urine cocaine detectionOrder ed By: Michael Cerda on 07-15-2022 Cocaine Ql (U) Negative Negative [facility] Urine culture routineOrdered By: Michael Cerda on 07-15-2022 Bacteria identified Cx Nom (U) 2 Days [facility] Urine glucose measurement by automated test strip (mass/volume)Ordered By: Michael Cerda on 07-15-2022 Glucose Auto test strip (U) [Mass/Vol] Normal mg/dL Normal [facility] Urine hemoglobin detection b y automated test stripOrdered By: Michael Cerda on 07-15-2022 Hemoglobin Auto test strip Ql (U) Negative Negative [facility] Urine leukocyte esterase det ection by automated test stripOrdered By: Michael Cerda on 07-15-2022 Leukocyte esterase Auto test strip Ql (U) 4+ Negative [facility] Urobilinogen Auto test strip (U) [Mass/Vol]Ordered By: Michael Cerda on 07-15-2022 Urobilinogen (U) [Mass/Vol] Normal mg/dL Normal [facility] WBC Auto (Bld) [#/Vol]Ordere d By: Michael Cerda on 07-15-2022 WBC (Bld) [#/Vol] 7.8 10*3/uL 3.8-11.6 [facility] pH Auto test strip (U)Ordere d By: Michael Cerda on 07-15-2022 pH (U) 5.5 [pH] 5.0-9.0 [facility] Basophils Auto (Bld) [#/Vol] Ordered By: Urbano Palma on 07-09-2022 Basophils (Bld) [#/Vol] 0.0 10*3/uL 0.0-0.2 [facility] Basophils/100 WBC Auto (Bld) Ordered By: Urbano Palma on 07-09-2022 Basophils/100 WBC (Bld) 0.4 % . [facility] Eosinophils Auto (Bld) [#/Vo l]Ordered By: Urbano Palma on 07-09-2022 Eosinophils (Bld) [#/Vol] 0.1 10*3/uL 0.0-0.45 [facility] Eosinophils/100 WBC Auto (Bl d)Ordered By: Urbano Palma on 07-09-2022 Eosinophils/100 WBC (Bld) 1.0 % . [facility] Erythrocyte distribution wid th Auto (RBC) [Ratio]Ordered By: Urbano Palma on 07-09-2022 Erythrocyte distribution width (RBC) [Ratio] 19.0 % 11.9-15.3 [facility] Hematocrit Auto (Bld) [Volum e fraction]Ordered By: Urbano Palma on 07-09-2022 Hematocrit (Bld) [Volume fraction] 37.4 % 34.0-46.4 [facility] Hemoglobin [Mass/volume] in BloodOrdered By: Urbano Palma on 07-09-2022 Hemoglobin (Bld) [Mass/Vol] 12.2 g/dL 11.8-15.4 [facility] Leukocytes [#/volume] correc nneka for nucleated erythrocytes in Blood by Automated counOrdered By: Urbano Palma on 07-09-2022 WBC corrected for nucl RBC Auto (Bld) [#/Vol] 8.1 10*3/uL 3.8-11.6 [facility] Lymphocytes Auto (Bld) [#/Vo l]Ordered By: Urbano Palma on 07-09-2022 Lymphocytes (Bld) [#/Vol] 1.2 10*3/uL 1.00-4.8 [facility] Lymphocytes/100 WBC Auto (Bl d)Ordered By: Urbano Palma on 07-09-2022 Lymphocytes/100 WBC (Bld) 14.9 % . [facility] MCH Auto (RBC) [Entitic mass ]Ordered By: Urbano Palma on 07-09-2022 MCH (RBC) [Entitic mass] 31.4 pg 24.7-34.3 [facility] MCHC Auto (RBC) [Mass/Vol]Or dered By: Urbano Palma on 07-09-2022 MCHC (RBC) [Mass/Vol] 32.7 g/dL 32.0-35.0 [facility] MCV Auto (RBC) [Entitic vol] Ordered By: Urbano Palma on 07-09-2022 MCV (RBC) [Entitic vol] 95.8 fL 80-100 [facility] Monocytes Auto (Bld) [#/Vol] Ordered By: Urbano Palma on 07-09-2022 Monocytes (Bld) [#/Vol] 0.4 10*3/uL 0.0-0.8 [facility] Monocytes/100 WBC Auto (Bld) Ordered By: Urbano Palma on 07-09-2022 Monocytes/100 WBC (Bld) 5.1 % . [facility] Neutrophils Auto (Bld) [#/Vo l]Ordered By: Urbano Palma on 07-09-2022 Neutrophils (Bld) [#/Vol] 6.3 10*3/uL 1.8-7.7 [facility] Neutrophils/100 WBC Auto (Bl d)Ordered By: Urbano Palma on 07-09-2022 Neutrophils/100 WBC (Bld) 78.6 % . [facility] Nucleated erythrocytes [Pres ence] in Blood by Automated countOrdered By: Urbano Palma on 07-09-2022 Nucleated RBC Auto Ql (Bld) 0.1 /100{WBC} 0-0.5 [facility] Platelet mean volume Auto (B ld) [Entitic vol]Ordered By: Urbano Palam on 07-09-2022 Platelet mean volume (Bld) [Entitic vol] 8.2 fL 6.3-10.7 [facility] Platelets Auto (Bld) [#/Vol] Ordered By: Urbano Palma on 07-09-2022 Platelets (Bld) [#/Vol] 180 10*3/uL 150-450 [facility] RBC Auto (Bld) [#/Vol]Ordere d By: Urbano Palma on 07-09-2022 RBC (Bld) [#/Vol] 3.91 10*6/uL 3.60-5.00 [facility] WBC Auto (Bld) [#/Vol]Ordere d By: Urbano Palma on 07-09-2022 WBC (Bld) [#/Vol] 8.1 10*3/uL 3.8-11.6 [facility] Serum or plasma glucose rufina rai 3 hours panelOrdered By: Urbano Palma on 06-30-2022 Glucose tolerance 3 hours panel See comment [facility] Comment on above: FASTING 82 Col: 03/14 0616 1HR GLU 215 Col: 06/30/22 0800 2HR GLU 194 Col: 06/30/22 0901 3HR GLU 71 Col: 06/30/22 1000 Amphetamine Screen Ql (U)Ord ered By: DELANEY CARLISLE on 06-26-2022 Amphetamines Ql (U) Negative Negative [facility] Automated erythrocytes count in urine sediment (number/area)Ordered By: DELANEY CARLISLE on 06-26-2022 RBC Auto (Urine sed) [#/Area] 1-2 [HPF] 0-4 [facility] Automated leukocytes count i n urine sediment (number/area)Ordered By: DELANEY CARLISLE on 06-26-2022 WBC Auto (Urine sed) [#/Area] 50-100 [HPF] 0-4 [facility] Automated urine hyaline cast s count (number/volume)Ordered By: DELANEY CARLISLE on 06-26-2022 Hyaline casts Auto (U) [#/Vol] None seen [LPF] 0-1 [facility] Automated urine sediment claudia cium oxalate crystal count by microscopy (number/high powOrdered By: DELANEY CARLISLE on 06-26-2022 Calcium oxalate crystals LM.HPF (Urine sed) [#/Area] 3+ [HPF] [facility] Barbiturates [Presence] in U rineOrdered By: DELANEY CARLISLE on 06-26-2022 Barbiturates Ql (U) Negative Negative [facility] Benzodiazepines [Presence] i n UrineOrdered By: DELANEY CARLISLE on 06-26-2022 Benzodiazepines Ql (U) Negative Negative [facility] Bilirubin Test strip Ql (U)O rdered By: DELANEY CARLISLE on 06-26-2022 Bilirubin Ql (U) 1+ Negative [facility] Color Auto (U)Ordered By: VLAD CARLISLE on 06-26-2022 Color (U) Dark yellow Yellow [facility] fibronectinOrdered By: DELANEY CARLISLE on 06-26-2022 Fibronectin. (Vag fld) [Mass/Vol] Negative Negative [facility] Ketones Auto test strip (U) [Mass/Vol]Ordered By: DELANEY CARLISLE on 06-26-2022 Ketones (U) [Mass/Vol] 1+ Negative [facility] Laboratory - Drug toxicology Ordered By: DELANEY CARLISLE on 06-26-2022 Opiates Ql (U) Negative Negative [facility] Nitrite Test strip Ql (U)Ord ered By: DELANEY CARLISLE on 06-26-2022 Nitrite Ql (U) Negative Negative [facility] No Panel InformationOrdered By: DELANEY CARLISLE on 06-26-2022 Membranes Rupture (PAMG-1) Negative Negative [facility] Phencyclidine Screen Ql (U)O rdered By: DELANEY CARLISLE on 06-26-2022 Phencyclidine Ql (U) Negative Negative [facility] Comment on above: These are unconfirme d results and should not be used for legal purposes. Drug Cut-Off Concentration: AMPH 1000 ng/mL BOO 200 ng/mL HELGA 200 ng/mL COCM 300 ng/mL OP 300 ng/mL PCP 25 ng/mL Protein Auto test strip (U) [Mass/Vol]Ordered By: DELANEY CARLISLE on 06-26-2022 Protein (U) [Mass/Vol] 30 mg/dL Negative [facility] Specific gravity Auto test s trip (U) [Rel density]Ordered By: DELANEY CARLISLE on 06-26-2022 Specific gravity (U) [Rel density] 1.029 1.001-1.030 [facility] Squamous epithelial cells de tection in urine sediment by light microscopyOrdered By: DELANEY CARLISLE on 06-26-2022 Epithelial cells.squamous LM Ql (Urine sed) 5-9 [HPF] 0-2 [facility] Urine bacteria detection by automated methodOrdered By: DELANEY CARLISLE on 06-26-2022 Bacteria Auto Ql (U) None seen None Seen [facility] Urine clarity by refractomet ry automatedOrdered By: DELANEY CARLISLE on 06-26-2022 Clarity Refractometry automated (U) Turbid Clear [facility] Urine cocaine detectionOrder ed By: DELANEY CARLISLE on 06-26-2022 Cocaine Ql (U) Negative Negative [facility] Urine culture routineOrdered By: DELANEY CARLISLE on 06-26-2022 Bacteria identified Cx Nom (U) Cinthya albicans [facility] Urine glucose measurement by automated test strip (mass/volume)Ordered By: DELANEY CARLISLE on 06-26-2022 Glucose Auto test strip (U) [Mass/Vol] Normal mg/dL Normal [facility] Urine hemoglobin detection b y automated test stripOrdered By: DELANEY CARLISLE on 06-26-2022 Hemoglobin Auto test strip Ql (U) Negative Negative [facility] Urine leukocyte esterase det ection by automated test stripOrdered By: DELANEY CARLISLE on 06-26-2022 Leukocyte esterase Auto test strip Ql (U) 3+ Negative [facility] Urine sediment crystal ident ification by light microscopyOrdered By: DELANEY CARLISLE on 06-26-2022 Crystals LM Nom (Urine sed) None seen [HPF] [facility] Urobilinogen Auto test strip (U) [Mass/Vol]Ordered By: DELANEY CARLISLE on 06-26-2022 Urobilinogen (U) [Mass/Vol] Normal mg/dL Normal [facility] Yeast detection in urine sed iment by light microscopyOrdered By: DELANEY CARLISLE on 06-26-2022 Yeast LM Ql (Urine sed) 2+ [HPF] None Seen [facility] pH Auto test strip (U)Ordere d By: DELANEY CARLISLE on 06-26-2022 pH (U) 5.5 [pH] 5.0-9.0 [facility] Automated erythrocytes count in urine sediment (number/area)Ordered By: Michael Cerda on 06-25-2022 RBC Auto (Urine sed) [#/Area] 3-4 [HPF] 0-4 [facility] Automated leukocytes count i n urine sediment (number/area)Ordered By: Michael Cerda on 06-25-2022 WBC Auto (Urine sed) [#/Area] Innumerable [HPF] 0-4 [facility] Basophils Auto (Bld) [#/Vol] Ordered By: PROVIDER TEMP on 06-25-2022 Basophils (Bld) [#/Vol] 0.0 10*3/uL 0.0-0.2 [facility] Basophils/100 WBC Auto (Bld) Ordered By: PROVIDER TEMP on 06-25-2022 Basophils/100 WBC (Bld) 0.1 % . [facility] Bilirubin Test strip Ql (U)O rdered By: Michael Cerda on 06-25-2022 Bilirubin Ql (U) Negative Negative [facility] Body fluid albumin measureme nt (mass/volume)Ordered By: PROVIDER TEMP on 06-25-2022 Albumin (Body fld) [Mass/Vol] 2.7 g/dL 3.2-5.5 [facility] Casts typing in urine sedime nt by light microscopyOrdered By: Michael Cerda on 06-25-2022 Casts LM Nom (Urine sed) None seen [LPF] None Seen [facility] Color Auto (U)Ordered By: Lorene Cerda on 06-25-2022 Color (U) Yellow Yellow [facility] Creatinine and Glomerular fi ltration rate.predicted panel (S/P/Bld)Ordered By: PROVIDER TEMP on 06-25-2022 Creatinine [Mass/Vol] 0.64 mg/dL 0.44-1.03 [facility] Eosinophils Auto (Bld) [#/Vo l]Ordered By: PROVIDER TEMP on 06-25-2022 Eosinophils (Bld) [#/Vol] 0.1 10*3/uL 0.0-0.45 [facility] Eosinophils/100 WBC Auto (Bl d)Ordered By: PROVIDER TEMP on 06-25-2022 Eosinophils/100 WBC (Bld) 0.7 % . [facility] Erythrocyte distribution wid th Auto (RBC) [Ratio]Ordered By: PROVIDER TEMP on 06-25-2022 Erythrocyte distribution width (RBC) [Ratio] 16.1 % 11.9-15.3 [facility] Estimated glomerular filtrat ion rate (GFR) non- AmericanOrdered By: PROVIDER TEMP on 06-25-2022 GFR/1.73 sq M.predicted among non-blacks MDRD (S/P/Bld) [Vol rate/Area] > 60 mL/Min [facility] Globulin Calc (S) [Mass/Vol] Ordered By: PROVIDER TEMP on 06-25-2022 Globulin (S) [Mass/Vol] 3.3 g/dL [facility] Hematocrit Auto (Bld) [Volum e fraction]Ordered By: PROVIDER TEMP on 06-25-2022 Hematocrit (Bld) [Volume fraction] 29.0 % 34.0-46.4 [facility] Hemoglobin [Mass/volume] in BloodOrdered By: PROVIDER TEMP on 06-25-2022 Hemoglobin (Bld) [Mass/Vol] 9.9 g/dL 11.8-15.4 [facility] Ketones Auto test strip (U) [Mass/Vol]Ordered By: Michael Cerda on 06-25-2022 Ketones (U) [Mass/Vol] 4+ Negative [facility] Laboratory - UrinalysisOrder ed By: Michael Cerda on 06-25-2022 Hyaline casts LM Ql (Urine sed) 0-1 [LPF] 0-8 [facility] Leukocytes [#/volume] correc nneka for nucleated erythrocytes in Blood by Automated counOrdered By: PROVIDER TEMP on 06-25-2022 WBC corrected for nucl RBC Auto (Bld) [#/Vol] 10.5 10*3/uL 3.8-11.6 [facility] Lymphocytes Auto (Bld) [#/Vo l]Ordered By: PROVIDER TEMP on 06-25-2022 Lymphocytes (Bld) [#/Vol] 1.8 10*3/uL 1.00-4.8 [facility] Lymphocytes/100 WBC Auto (Bl d)Ordered By: PROVIDER TEMP on 06-25-2022 Lymphocytes/100 WBC (Bld) 16.7 % . [facility] MCH Auto (RBC) [Entitic mass ]Ordered By: PROVIDER TEMP on 06-25-2022 MCH (RBC) [Entitic mass] 31.6 pg 24.7-34.3 [facility] MCHC Auto (RBC) [Mass/Vol]Or dered By: PROVIDER TEMP on 06-25-2022 MCHC (RBC) [Mass/Vol] 34.2 g/dL 32.0-35.0 [facility] MCV Auto (RBC) [Entitic vol] Ordered By: PROVIDER TEMP on 06-25-2022 MCV (RBC) [Entitic vol] 92.4 fL 80-100 [facility] Monocyte distribution width [Entitic volume] in Blood by AutomatedOrdered By: PROVIDER TEMP on 06-25-2022 Monocyte distribution width Auto (Bld) [Entitic vol] 18.74 % 0.00-20.00 [facility] Monocytes Auto (Bld) [#/Vol] Ordered By: PROVIDER TEMP on 06-25-2022 Monocytes (Bld) [#/Vol] 0.8 10*3/uL 0.0-0.8 [facility] Monocytes/100 WBC Auto (Bld) Ordered By: PROVIDER TEMP on 06-25-2022 Monocytes/100 WBC (Bld) 7.5 % . [facility] Neutrophils Auto (Bld) [#/Vo l]Ordered By: PROVIDER TEMP on 06-25-2022 Neutrophils (Bld) [#/Vol] 7.9 10*3/uL 1.8-7.7 [facility] Neutrophils/100 WBC Auto (Bl d)Ordered By: PROVIDER TEMP on 06-25-2022 Neutrophils/100 WBC (Bld) 75.0 % . [facility] Nitrite Test strip Ql (U)Ord ered By: Michael Cerda on 06-25-2022 Nitrite Ql (U) Negative Negative [facility] No Panel InformationOrdered By: PROVIDER TEMP on 06-25-2022 Estimated GFR () > 60 mL/Min [facility] Comment on above: GFR estimated refere nce range: According to KDOQI guidelines, <60 ml/min/1.73m2 is sufficient to diagnose a patient with chronic kidney disease. Pharmacy Creatinine Clearance (Chem 153.48 [facility] Nucleated erythrocytes [Pres ence] in Blood by Automated countOrdered By: PROVIDER TEMP on 06-25-2022 Nucleated RBC Auto Ql (Bld) 0.3 /100{WBC} 0-0.5 [facility] Platelet mean volume Auto (B ld) [Entitic vol]Ordered By: PROVIDER TEMP on 06-25-2022 Platelet mean volume (Bld) [Entitic vol] 7.8 fL 6.3-10.7 [facility] Platelets Auto (Bld) [#/Vol] Ordered By: PROVIDER TEMP on 06-25-2022 Platelets (Bld) [#/Vol] 182 10*3/uL 150-450 [facility] Protein Auto test strip (U) [Mass/Vol]Ordered By: Michael Cerda on 06-25-2022 Protein (U) [Mass/Vol] Trace mg/dL Negative [facility] Protein [Mass/volume] in Ser um or PlasmaOrdered By: PROVIDER TEMP on 06-25-2022 Protein [Mass/Vol] 6.0 g/dL 6.1-7.9 [facility] RBC Auto (Bld) [#/Vol]Ordere d By: PROVIDER TEMP on 06-25-2022 RBC (Bld) [#/Vol] 3.14 10*6/uL 3.60-5.00 [facility] Serum or plasma alanine cox otransferase measurement without P-5'-P (enzymatic activiOrdered By: PROVIDER TEMP on 06-25-2022 ALT No additional P-5'-P [Catalytic activity/Vol] 10 U/L 10-60 [facility] Serum or plasma albumin/glob ulin mass ratioOrdered By: PROVIDER TEMP on 06-25-2022 Albumin/Globulin [Mass ratio] 0.8 {ratio} [facility] Serum or plasma alkaline sam sphatase measurement (enzymatic activity/volume)Ordered By: PROVIDER TEMP on 06-25-2022 ALP [Catalytic activity/Vol] 77 U/L 32-92 [facility] Serum or plasma anion gap de terminationOrdered By: PROVIDER TEMP on 06-25-2022 Anion gap [Moles/Vol] 15.1 mmol/L 6.0-15.0 [facility] Serum or plasma aspartate am inotransferase measurement (enzymatic activity/volume)Ordered By: PROVIDER TEMP on 06-25-2022 AST [Catalytic activity/Vol] 20 U/L 10-42 [facility] Serum or plasma calcium katie urement (mass/volume)Ordered By: PROVIDER TEMP on 06-25-2022 Calcium [Mass/Vol] 9.3 mg/dL 8.2-10.2 [facility] Serum or plasma chloride victorino surement (moles/volume)Ordered By: PROVIDER TEMP on 06-25-2022 Chloride [Moles/Vol] 107 mmol/L 95-114 [facility] Serum or plasma glucose katie urement (mass/volume)Ordered By: PROVIDER TEMP on 06-25-2022 Glucose [Mass/Vol] 72 mg/dL 70-100 [facility] Comment on above: ADA recommended refe rence rangeRandom Glucose Reference Range is dependent on time and content of last meal. Glucose of more than 200 mg/dL in a nonstressed, ambulatory subject supports the diagnosis of Diabetes Mellitus. Serum or plasma potassium me asurement (moles/volume)Ordered By: PROVIDER TEMP on 06-25-2022 Potassium [Moles/Vol] 3.6 mmol/L 3.5-5.1 [facility] Serum or plasma sodium measu rement (moles/volume)Ordered By: PROVIDER TEMP on 06-25-2022 Sodium [Moles/Vol] 137 mmol/L 136-146 [facility] Serum or plasma total biliru bin measurement (mass/volume)Ordered By: PROVIDER TEMP on 06-25-2022 Bilirubin [Mass/Vol] 0.7 mg/dL 0.3-1.2 [facility] Serum or plasma total carbon dioxide measurement (moles/volume)Ordered By: PROVIDER TEMP on 06-25-2022 CO2 [Moles/Vol] 18.5 mmol/L 22.0-30.0 [facility] Serum or plasma urea nitroge n measurement (mass/volume)Ordered By: PROVIDER TEMP on 06-25-2022 Urea nitrogen [Mass/Vol] 3 mg/dL 9- [facility] Specific gravity Auto test s trip (U) [Rel density]Ordered By: Michael Cerda on 06-25-2022 Specific gravity (U) [Rel density] 1.016 1.001-1.030 [facility] Squamous epithelial cells de tection in urine sediment by light microscopyOrdered By: Michael Cerda on 06-25-2022 Epithelial cells.squamous LM Ql (Urine sed) 10-19 [HPF] 0-2 [facility] Troponin I.cardiac [Mass/vol ume] in Serum or Plasma by High sensitivity methodOrdered By: Michael Cerda on 06-25-2022 Troponin I.cardiac High sensitivity method [Mass/Vol] 6 pg/mL 0-15 [facility] Urine bacteria detection by automated methodOrdered By: Michael Cerda on 06-25-2022 Bacteria Auto Ql (U) 1+ None Seen [facility] Urine clarity by refractomet ry automatedOrdered By: Michael Cerda on 06-25-2022 Clarity Refractometry automated (U) Turbid Clear [facility] Urine culture routineOrdered By: Michael Cerda on 06-25-2022 Bacteria identified Cx Nom (U) 2 Days [facility] Urine glucose measurement by automated test strip (mass/volume)Ordered By: Michael Cerda on 06-25-2022 Glucose Auto test strip (U) [Mass/Vol] Normal mg/dL Normal [facility] Urine hemoglobin detection b y automated test stripOrdered By: Michael Cerda on 06-25-2022 Hemoglobin Auto test strip Ql (U) Trace Negative [facility] Urine leukocyte esterase det ection by automated test stripOrdered By: Michael Cerda on 06-25-2022 Leukocyte esterase Auto test strip Ql (U) 4+ Negative [facility] Urobilinogen Auto test strip (U) [Mass/Vol]Ordered By: Michael Cerda on 06-25-2022 Urobilinogen (U) [Mass/Vol] Normal mg/dL Normal [facility] WBC Auto (Bld) [#/Vol]Ordere d By: CIERA TEMP on 06-25-2022 WBC (Bld) [#/Vol] 10.5 10*3/uL 3.8-11.6 [facility] Yeast detection in urine sed iment by light microscopyOrdered By: Michael Cerda on 06-25-2022 Yeast LM Ql (Urine sed) None seen [HPF] None Seen [facility] pH Auto test strip (U)Ordere d By: Michael Cerda on 06-25-2022 pH (U) 6.0 [pH] 5.0-9.0 [facility] GLUCOSE BLOODon 04-28-2022 Glucose [Mass/Vol] 83 mg/dL Normal 74-106 [facility] Comment on above: Performed By: #### G MINERVA, LIPID #### [facility] [address] [place] [address] Dr. Kinjal Rivers LIPID PROFILEon 04-28-2022 CHOL-HDL RATIO NORM SEE BELOW Normal [facility] Comment on above: Result Comment: 3.3 - 4.4 LOW RISK 4.4 - 7.1 AVERAGE RISK 7.1 - 11.0 MODERATE RISK >11.0 HIGH RISK Performed By: #### G MINERVA, LIPID #### [facility] [address] [place] [address] Dr. Kinjal Rivers Cholesterol [Mass/Vol] 232 mg/dL Critically high <=200 [facility] Comment on above: Performed By: #### G MINERVA, LIPID #### [facility] [address] [place] [address] Dr. Kinjal Rivers Cholesterol in HDL [Mass/Vol] 92 mg/dL Critically high 40-60 [facility] Comment on above: Performed By: #### G MINERVA, LIPID #### [facility] [address] [address] [address] Kinjal Rivers Cholesterol in LDL [Mass/Vol] 115.2 mg/dL Normal [facility] Comment on above: Performed By: #### G MINERVA, LIPID #### [facility] [address] [place] [address] Dr. Kinjal Rivers Cholesterol.total/Chol esterol in HDL [Mass ratio] 2.5 {ratio} Normal [facility] Comment on above: Performed By: #### G MINERVA, LIPID #### [facility] [address] [address] [address] Kinjal Rivers HDL NORMAL > or = 60 mg/dl - LO W CARDIOVASCULAR RISK <40 mg/dl - HIGH CARDIOVASCULAR RISK Normal [facility] Comment on above: Performed By: #### G MINERVA, LIPID #### [facility] [address] [address] [address] Kinjal Rivers LDL CALC NORMAL SEE BELOW Normal [facility] Comment on above: Result Comment: <100 mg/dl OPTIMAL 100 - 129 mg/dl NEAR OR ABOVE OPTIMAL 130 - 159 mg/dl BORDERLINE HIGH 160 - 189 mg/dl HIGH >190 mg/dl VERY HIGH Performed By: #### G MINERVA, LIPID #### [facility] [address] [address] [address] Kinjal Rivers Triglyceride [Mass/Vol] 124 mg/dL Normal <=150 [facility] Comment on above: Performed By: #### G MINERVA, LIPID #### [facility] [address] [address] [address] Kinjal Rivers VLDL CALC 24.8 mg/dL Normal [facility] Comment on above: Performed By: #### G MINERVA, LIPID #### [facility] [address] [address] [address] Kinjal Rivers Echocardiogramon 02-13-[address], [address] [place] [address] TRANSTHORACIC ECHOCARDIOGRAM REPORT Patient Name: MARICARMEN Monreal Physician: [id number] Tracee ANDERSON MD Study Date: 02/13/2022 Referring [id number] RITA OLIVIA Physician: MRN/PID: [id number] PCP: Viktor Sotelo Accession/Order#: [id number] Department [facility] Location: Date of : 1980 Fellow: Gender: F Nurse: Admit Date: Unarmed Security Officer: Georgia Grajeda RDCS, José Height: 167.64 cm CC Report to: Weight: 102.97 kg Study Type: Echocardiogram BSA: 2.11 m2 Blood Pressure: 114 /70 mmHg Diagnosis/ICD: I47.1-Supraventricular tachycardia; R06.02-Shortness of breath; I49.5-Sick sinus syndrome Indication: Abnormal EKG-Complete Heart Block, Pacemaker, History of Syncope, Obesity, Seizure Disorder, Pt is 13 weeks Procedure/CPT: Echo Complete w Full Doppler-[id number] Study Detail: The following Echo studies were [...] 0.8 m/s (0.6-0.9m/s) PV Max P.9 mmHg [id number] Tracee Moore MD Electronically signed on 02/13/2022 at 5:36:08 PM Final Normal [facility] Echocardiography Please click on the link to view the study images Normal [facility] [employer] [place] Work Phone: Falls Screening (Age 18+)on 02-13-2022 Fall risk assessment a) No falls within the last year [facility] [place] [address] [place] Work Phone: Urine culture routineOrdered By: Raymond Oconnor on 01-22-2022 Bacteria identified Cx Nom (U) 2 Days [facility] Albumin [Mass/volume] in Ser um or PlasmaOrdered By: Raymond Oconnor on 01-20-2022 Albumin [Mass/Vol] 3.4 g/dL 3.2-5.5 [facility] Automated erythrocytes count in urine sediment (number/area)Ordered By: Raymond Oconnor on 01-20-2022 RBC Auto (Urine sed) [#/Area] 3-4 [HPF] 0-4 [facility] Automated leukocytes count i n urine sediment (number/area)Ordered By: Raymond Oconnor on 01-20-2022 WBC Auto (Urine sed) [#/Area] 20-49 [HPF] 0-4 [facility] Automated urine sediment claudia cium oxalate crystal count by microscopy (number/high powOrdered By: Raymond Oconnor on 01-20-2022 Calcium oxalate crystals LM.HPF (Urine sed) [#/Area] 4+ [HPF] [facility] Basophils Auto (Bld) [#/Vol] Ordered By: Raymond Oconnor on 01-20-2022 Basophils (Bld) [#/Vol] 0.0 10*3/uL 0.0-0.2 [facility] Basophils/100 WBC Auto (Bld) Ordered By: Raymond Oconnor on 01-20-2022 Basophils/100 WBC (Bld) 0.4 % . [facility] Bilirubin Auto test strip Ql (U)Ordered By: Raymond Oconnor on 01-20-2022 Bilirubin Ql (U) Negative Negative [facility] Blood hemoglobin measurement (mass/volume)Ordered By: Raymond Oconnor on 01-20-2022 Hemoglobin (Bld) [Mass/Vol] 10.6 g/dL 11.8-15.4 [facility] Blood leukocytes automated c ount (number/volume)Ordered By: Raymond Oconnor on 01-20-2022 WBC (Bld) [#/Vol] 6.8 10*3/uL 4.5-11.0 [facility] Creatinine and Glomerular fi ltration rate.predicted panel (S/P/Bld)Ordered By: Raymond Oconnor on 01-20-2022 Creatinine [Mass/Vol] 0.62 mg/dL 0.44-1.03 [facility] Eosinophils Auto (Bld) [#/Vo l]Ordered By: Raymond Oconnor on 01-20-2022 Eosinophils (Bld) [#/Vol] 0.1 10*3/uL 0.0-0.45 [facility] Eosinophils/100 WBC Auto (Bl d)Ordered By: Raymond Oconnor on 01-20-2022 Eosinophils/100 WBC (Bld) 1.5 % . [facility] Erythrocyte distribution wid th Auto (RBC) [Ratio]Ordered By: Raymond Oconnor on 01-20-2022 Erythrocyte distribution width (RBC) [Ratio] 18.2 % 11.9-15.3 [facility] Estimated glomerular filtrat ion rate (GFR) non- AmericanOrdered By: Raymond Oconnor on 01-20-2022 GFR/1.73 sq M.predicted among non-blacks MDRD (S/P/Bld) [Vol rate/Area] > 60 mL/Min [facility] Globulin Calc (S) [Mass/Vol] Ordered By: Raymond Oconnor on 01-20-2022 Globulin (S) [Mass/Vol] 3.1 g/dL [facility] Hematocrit Auto (Bld) [Volum e fraction]Ordered By: Raymond Oconnor on 01-20-2022 Hematocrit (Bld) [Volume fraction] 33.6 % 34.0-46.4 [facility] Ketones Auto test strip (U) [Mass/Vol]Ordered By: Raymond Oconnor on 01-20-2022 Ketones (U) [Mass/Vol] Negative Negative [facility] - Hematology and Cell countsOrdered By: Raymond Oconnor on 01-20-2022 Nucleated RBC/100 WBC (Bld) [Ratio] 0.0 % 0-0.5 [facility] - UrinalysisOrder ed By: Raymond Oconnor on 01-20-2022 Hyaline casts LM Ql (Urine sed) 0-8 [LPF] 0-8 [facility] Lymphocytes Auto (Bld) [#/Vo l]Ordered By: Raymond Oconnor on 01-20-2022 Lymphocytes (Bld) [#/Vol] 1.3 10*3/uL 1.00-4.8 [facility] Lymphocytes/100 WBC Auto (Bl d)Ordered By: Raymond Oconnor on 01-20-2022 Lymphocytes/100 WBC (Bld) 19.1 % . [facility] MCH Auto (RBC) [Entitic mass ]Ordered By: Raymond Oconnor on 01-20-2022 MCH (RBC) [Entitic mass] 26.9 pg 24.7-34.3 [facility] MCHC Auto (RBC) [Mass/Vol]Or dered By: Raymond Oconnor on 01-20-2022 MCHC (RBC) [Mass/Vol] 31.7 g/dL 32.0-35.0 [facility] MCV Auto (RBC) [Entitic vol] Ordered By: Raymond Oconnor on 01-20-2022 MCV (RBC) [Entitic vol] 84.8 fL 80-100 [facility] Monocytes Auto (Bld) [#/Vol] Ordered By: Raymond Oconnor on 01-20-2022 Monocytes (Bld) [#/Vol] 0.4 10*3/uL 0.0-0.8 [facility] Monocytes/100 WBC Auto (Bld) Ordered By: Raymond Oconnor on 01-20-2022 Monocytes/100 WBC (Bld) 6.6 % . [facility] Neutrophils Auto (Bld) [#/Vo l]Ordered By: Raymond Oconnor on 01-20-2022 Neutrophils (Bld) [#/Vol] 4.9 10*3/uL 1.8-7.7 [facility] Neutrophils/100 WBC Auto (Bl d)Ordered By: Raymond Oconnor on 01-20-2022 Neutrophils/100 WBC (Bld) 72.4 % . [facility] No Panel InformationOrdered By: Raymond Oconnor on 01-20-2022 Estimated GFR () > 60 mL/Min [facility] Comment on above: GFR estimated refere nce range: According to KDOQI guidelines, <60 ml/min/1.73m2 is sufficient to diagnose a patient with chronic kidney disease. Pharmacy Creatinine Clearance (Chem 147.20 [facility] Platelet mean volume Auto (B ld) [Entitic vol]Ordered By: Raymond Oconnor on 01-20-2022 Platelet mean volume (Bld) [Entitic vol] 8.1 fL 6.3-10.7 [facility] Platelets Auto (Bld) [#/Vol] Ordered By: Raymond Oconnor on 01-20-2022 Platelets (Bld) [#/Vol] 214 10*3/uL 150-450 [facility] Protein Auto test strip (U) [Mass/Vol]Ordered By: Raymond Oconnor on 01-20-2022 Protein (U) [Mass/Vol] Negative Negative [facility] Protein [Mass/volume] in Ser um or PlasmaOrdered By: Raymond Oconnor on 01-20-2022 Protein [Mass/Vol] 6.5 g/dL 6.1-7.9 [facility] RBC Auto (Bld) [#/Vol]Ordere d By: Raymond Oconnor on 01-20-2022 RBC (Bld) [#/Vol] 3.95 10*6/uL 3.60-5.00 [facility] Serum or plasma alanine cox otransferase measurement without P-5'-P (enzymatic activiOrdered By: Raymond Oconnor on 01-20-2022 ALT No additional P-5'-P [Catalytic activity/Vol] 10 U/L 10-60 [facility] Serum or plasma albumin/glob ulin mass ratioOrdered By: Raymond Oconnor on 01-20-2022 Albumin/Globulin [Mass ratio] 1.1 {ratio} [facility] Serum or plasma alkaline sam sphatase measurement (enzymatic activity/volume)Ordered By: Raymond Oconnor on 01-20-2022 ALP [Catalytic activity/Vol] 51 U/L 32-92 [facility] Serum or plasma aspartate am inotransferase measurement (enzymatic activity/volume)Ordered By: Raymond Oconnor on 01-20-2022 AST [Catalytic activity/Vol] 16 U/L 10-42 [facility] Serum or plasma calcium katie urement (mass/volume)Ordered By: Raymond Oconnor on 01-20-2022 Calcium [Mass/Vol] 9.4 mg/dL 8.2-10.2 [facility] Serum or plasma chloride victorino surement (moles/volume)Ordered By: Raymond Oconnor on 01-20-2022 Chloride [Moles/Vol] 103 mmol/L 95-114 [facility] Serum or plasma glucose katie urement (mass/volume)Ordered By: Raymond Oconnor on 01-20-2022 Glucose [Mass/Vol] 82 mg/dL 70-100 [facility] Comment on above: ADA recommended refe rence range Random Glucose Reference Range is dependent on time and content of last meal. Glucose of more than 200 mg/dL in a nonstressed, ambulatory subject supports the diagnosis of Diabetes Mellitus. Serum or plasma potassium me asurement (moles/volume)Ordered By: Raymond Oconnor on 01-20-2022 Potassium [Moles/Vol] 4.0 mmol/L 3.5-5.1 [facility] Serum or plasma sodium measu rement (moles/volume)Ordered By: Raymond Oconnor on 01-20-2022 Sodium [Moles/Vol] 134 mmol/L 136-146 [facility] Serum or plasma total biliru bin measurement (mass/volume)Ordered By: Raymond Oconnor on 01-20-2022 Bilirubin [Mass/Vol] 0.7 mg/dL 0.3-1.2 [facility] Serum or plasma total carbon dioxide measurement (moles/volume)Ordered By: Raymond Oconnor on 01-20-2022 CO2 [Moles/Vol] 19.6 mmol/L 22.0-30.0 [facility] Serum or plasma urea nitroge n measurement (mass/volume)Ordered By: Raymond Oconnor on 01-20-2022 Urea nitrogen [Mass/Vol] 8 mg/dL 9-23 [facility] Squamous epithelial cells de tection in urine sediment by light microscopyOrdered By: Raymond Oconnor on 01-20-2022 Epithelial cells.squamous LM Ql (Urine sed) 0-1 [HPF] 0-2 [facility] Urine appearanceOrdered By: Raymond Oconnor on 01-20-2022 Appearance (U) Clear Clear [facility] Urine bacteria detection by automated methodOrdered By: Raymond Oconnor on 01-20-2022 Bacteria Auto Ql (U) None seen None Seen [facility] Urine colorOrdered By: Chela Oconnor on 01-20-2022 Color (U) Yellow Yellow [facility] Urine glucose measurement by automated test strip (mass/volume)Ordered By: Raymond Oconnor on 01-20-2022 Glucose Auto test strip (U) [Mass/Vol] Normal mg/dL Normal [facility] Urine hemoglobin detection b y automated test stripOrdered By: Raymond Oconnor on 01-20-2022 Hemoglobin Auto test strip Ql (U) Negative Negative [facility] Urine leukocyte esterase det ection by automated test stripOrdered By: Raymond Oconnor on 01-20-2022 Leukocyte esterase Auto test strip Ql (U) 2+ Negative [facility] Urine nitrite detection by a utomated test stripOrdered By: Raymond Oconnor on 01-20-2022 Nitrite Auto test strip Ql (U) Negative Negative [facility] Urine sediment crystal ident ification by light microscopyOrdered By: Raymond Oconnor on 01-20-2022 Crystals LM Nom (Urine sed) None seen [HPF] [facility] Urobilinogen Auto test strip (U) [Mass/Vol]Ordered By: Raymond Oconnor on 01-20-2022 Urobilinogen (U) [Mass/Vol] Normal mg/dL Normal [facility] pH Auto test strip (U)Ordere d By: Raymond Oconnor on 01-20-2022 pH (U) 1.030 [pH] 1.001-1.030 [facility] pH (U) 6.0 [pH] 5.0-9.0 [facility] Tobacco Screening.on 022 Fall risk assessment a) No falls within the last year -[facility] [employer] DO Work Phone: Tobacco use status CP b) No [facility] [employer] [place] [address] DO Work Phone: [facility] Screening. [facility] Work Phone: Serum or plasma beta choriog onadotropin measurement (units/volume)Ordered By: Eduardo Swain on 12-16-2021 HCG.beta subunit Qn 3876.00 m[IU]/mL [facility] Comment on above: Approximate Approxim ate hCG Gestational Age Range (mIU/ml) (weeks) 0.2-1 5-50 1-2 50-500 2-3 100-5,000 3-4 500-10,000 4-5 1,000-50,000 5-6 10,000-100,000 6-8 15,000-200,000 8-12 10,000-100,000 Cholesterol [Mass/volume] in Serum or PlasmaOrdered By: Eduardo Swain on 12-11-2021 Cholesterol [Mass/Vol] 190 mg/dL 140-200 [facility] Comment on above: Chol less than 200 m g/dl low risk Chol 201-239 mg/dl borderline risk Chol 240 mg/dl and greater high risk Cholesterol in LDL Calc [Mas s/Vol]Ordered By: Eduardo Swain on 12-11-2021 Cholesterol in LDL [Mass/Vol] 103 mg/dL 0-100 [facility] Comment on above: LDL ATP III CLASSIFI CATION LDL less than 100 mg/dL Optimal LDL 100-129 mg/dL Near or above optimal LDL 130-159 mg/dL Borderline high LDL 160-189 mg/dL High LDL greater than 189 mg/dL Very high Cholesterol in VLDL Calc [Ma ss/Vol]Ordered By: Eduardo Swain on 12-11-2021 Cholesterol in VLDL [Mass/Vol] 9 mg/dL [facility] No Panel InformationOrdered By: Eduardo Swain on 12-11-2021 25-Hydroxy Vitamin D Total 40.6 ng/mL 30-100 [facility] Comment on above: VITAMIN D STATUS [...] HDL [Mass/Vol] 78 mg/dL 35-85 [facility] Comment on above: HDL CHOL ATP-III CLA SSIFICATION Cardiovascular Risk HDL > or equal to 60 mg/dL LOW HDL < 40 mg/dL HIGH Serum or plasma total choles terol/high density lipoprotein (HDL) cholesterol mass ratOrdered By: dEuardo Swain on 12-11-2021 Cholesterol.total/Chol esterol in HDL [Mass ratio] 2.4 {ratio} <5.0 [facility] TSH DL <= 0.005 mIU/L QnOrde red By: Eduardo Swain on 12-11-2021 TSH Qn 2.40 m[IU]/L 0.45-5.33 [facility] Triglyceride [Mass/volume] i n Serum or PlasmaOrdered By: Eduardo Swain on 12-11-2021 Triglyceride [Mass/Vol] 47 mg/dL 35-149 [facility] Comment on above: TRIG ATP III [...] HCG.beta subunit Qn 315.21 m[IU]/mL [facility] Comment on above: Approximate Approxim ate hCG Gestational Age Range (mIU/ml) (weeks) 0.2-1 5-50 1-2 50-500 2-3 100-5,000 3-4 500-10,000 4-5 1,000-50,000 5-6 10,000-100,000 6-8 15,000-200,000 8-12 10,000-100,000 Urine culture routineOrdered By: Cornell Mcnair on 12-10-2021 Bacteria identified Cx Nom (U) Strep. agalactiae Grp B [facility] Amphetamine Screen Ql (U)Ord ered By: Cornell Mcnair on 12-08-2021 Amphetamines Ql (U) Negative Negative [facility] Automated erythrocytes count in urine sediment (number/area)Ordered By: Cornell Mcnair on 12-08-2021 RBC Auto (Urine sed) [#/Area] 10-19 [HPF] 0-4 [facility] Automated leukocytes count i n urine sediment (number/area)Ordered By: Cornell Mcnair on 12-08-2021 WBC Auto (Urine sed) [#/Area] 50-100 [HPF] 0-4 [facility] Automated urine hyaline cast s count (number/volume)Ordered By: Cornell Mcnair on 12-08-2021 Hyaline casts Auto (U) [#/Vol] 0-1 [LPF] 0-1 [facility] Automated urine sediment claudia cium oxalate crystal count by microscopy (number/high powOrdered By: Cornell Mcnair on 12-08-2021 Calcium oxalate crystals LM.HPF (Urine sed) [#/Area] 3+ [HPF] [facility] Barbiturates [Presence] in U rineOrdered By: Cornell Mcnair on 12-08-2021 Barbiturates Ql (U) Negative Negative [facility] Basophils Auto (Bld) [#/Vol] Ordered By: Cornell Mcnair on 12-08-2021 Basophils (Bld) [#/Vol] 0.0 10*3/uL 0.0-0.2 [facility] Basophils/100 WBC Auto (Bld) Ordered By: Cornell Mcnair on 12-08-2021 Basophils/100 WBC (Bld) 0.6 % . [facility] Benzodiazepines [Presence] i n UrineOrdered By: Cornell Mcnair on 12-08-2021 Benzodiazepines Ql (U) Negative Negative [facility] Bilirubin Test strip Ql (U)O rdered By: Cornell Mcnair on 12-08-2021 Bilirubin Ql (U) Negative Negative [facility] Blood hemoglobin measurement (mass/volume)Ordered By: Cornell Mcnair on 12-08-2021 Hemoglobin (Bld) [Mass/Vol] 9.6 g/dL 11.8-15.4 [facility] Blood leukocytes automated c ount (number/volume)Ordered By: Cornell Mcnair on 12-08-2021 WBC (Bld) [#/Vol] 6.9 10*3/uL 4.5-11.0 [facility] Body fluid albumin measureme nt (mass/volume)Ordered By: Cornell Mcnair on 12-08-2021 Albumin (Body fld) [Mass/Vol] 3.4 g/dL 3.2-5.5 [facility] COVID-19 SOFIAOrdered By: Julia Mcnair on 12-08-2021 SARS-CoV+SARS-CoV-2 (COVID-19) Ag IA.rapid Ql (Resp) Negative Negative [facility] Comment on above: This is a duplicate Roshni SARS Antigen (DIEUDONNE) result to be used for statistical tracking purpose only. Cannabinoids [Presence] in U rine by Screen methodOrdered By: Cornell Mcnair on 12-08-2021 Cannabinoids Screen Ql (U) Negative Negative [facility] Comment on above: These are unconfirme [...] None seen [LPF] None Seen [facility] Color Auto (U)Ordered By: Julia Mcnair on 12-08-2021 Color (U) Yellow Yellow [facility] Creatinine and Glomerular fi ltration rate.predicted panel (S/P/Bld)Ordered By: Cornell Mcnair on 12-08-2021 Creatinine [Mass/Vol] 0.78 mg/dL 0.44-1.03 [facility] Eosinophils Auto (Bld) [#/Vo l]Ordered By: Cornell Mcnair on 12-08-2021 Eosinophils (Bld) [#/Vol] 0.2 10*3/uL 0.0-0.45 [facility] Eosinophils/100 WBC Auto (Bl d)Ordered By: Cornell Mcnair on 12-08-2021 Eosinophils/100 WBC (Bld) 2.6 % . [facility] Erythrocyte distribution wid th Auto (RBC) [Ratio]Ordered By: Cornell Mcnair on 12-08-2021 Erythrocyte distribution width (RBC) [Ratio] 15.5 % 11.9-15.3 [facility] Estimated glomerular filtrat ion rate (GFR) non- AmericanOrdered By: Cornell Mcnair on 12-08-2021 GFR/1.73 sq M.predicted among non-blacks MDRD (S/P/Bld) [Vol rate/Area] > 60 mL/Min [facility] Globulin Calc (S) [Mass/Vol] Ordered By: Cornell Mcnair on 12-08-2021 Globulin (S) [Mass/Vol] 3.1 g/dL [facility] HCG ( test) IA.rapi d Ql (U)Ordered By: Cornell Mcnair on 12-08-2021 HCG ( test) Ql (U) Positive [facility] Hematocrit Auto (Bld) [Volum e fraction]Ordered By: Cornell Mcnair on 12-08-2021 Hematocrit (Bld) [Volume fraction] 30.1 % 34.0-46.4 [facility] Ketones Auto test strip (U) [Mass/Vol]Ordered By: Cornell Mcnair on 12-08-2021 Ketones (U) [Mass/Vol] Trace Negative [facility] - Drug toxicology Ordered By: Cornell Mcnair on 12-08-2021 Opiates Ql (U) Negative Negative [facility] Laboratory - Hematology and Cell countsOrdered By: Cornell Mcnair on 12-08-2021 Nucleated RBC/100 WBC (Bld) [Ratio] 0.0 % 0-0.5 [facility] Lymphocytes Auto (Bld) [#/Vo l]Ordered By: Cornell Mcnair on 12-08-2021 Lymphocytes (Bld) [#/Vol] 1.5 10*3/uL 1.00-4.8 [facility] Lymphocytes/100 WBC Auto (Bl d)Ordered By: Cornell Mcnair on 12-08-2021 Lymphocytes/100 WBC (Bld) 22.3 % . [facility] MCH Auto (RBC) [Entitic mass ]Ordered By: Cornell Mcnair on 12-08-2021 MCH (RBC) [Entitic mass] 26.3 pg 24.7-34.3 [facility] MCHC Auto (RBC) [Mass/Vol]Or dered By: Cornell Mcnair on 12-08-2021 MCHC (RBC) [Mass/Vol] 32.0 g/dL 32.0-35.0 [facility] MCV Auto (RBC) [Entitic vol] Ordered By: Cornell Mcnair on 12-08-2021 MCV (RBC) [Entitic vol] 82.4 fL 80-100 [facility] Monocytes Auto (Bld) [#/Vol] Ordered By: Cornell Mcnair on 12-08-2021 Monocytes (Bld) [#/Vol] 0.4 10*3/uL 0.0-0.8 [facility] Monocytes/100 WBC Auto (Bld) Ordered By: Cornell Mcnair on 12-08-2021 Monocytes/100 WBC (Bld) 6.5 % . [facility] Mucus LM Ql (Urine sed)Order ed By: Cornell Mcnair on 12-08-2021 Mucus Ql (Urine sed) 2+ [LPF] [facility] Neutrophils Auto (Bld) [#/Vo l]Ordered By: Cornell Mcnair on 12-08-2021 Neutrophils (Bld) [#/Vol] 4.7 10*3/uL 1.8-7.7 [facility] Neutrophils/100 WBC Auto (Bl d)Ordered By: Cornell Mcnair on 12-08-2021 Neutrophils/100 WBC (Bld) 68.0 % . [facility] Nitrite Test strip Ql (U)Ord ered By: Cornell Mcnair on 12-08-2021 Nitrite Ql (U) Negative Negative [facility] No Panel InformationOrdered By: Cornell Mcnair on 12-08-2021 Estimated GFR () > 60 mL/Min [facility] Comment on above: GFR estimated refere nce range: According to KDOQI guidelines, <60 ml/min/1.73m2 is sufficient to diagnose a patient with chronic kidney disease. Pharmacy Creatinine Clearance (Chem 115.38 [facility] SARS Antigen (LFIA) [facility] Phencyclidine Screen Ql (U)O rdered By: Cornell Mcnair on 12-08-2021 Phencyclidine Ql (U) Negative Negative [facility] Platelet mean volume Auto (B ld) [Entitic vol]Ordered By: Cornell Mcnair on 12-08-2021 Platelet mean volume (Bld) [Entitic vol] 7.2 fL 6.3-10.7 [facility] Platelets Auto (Bld) [#/Vol] Ordered By: Cornell Mcnair on 12-08-2021 Platelets (Bld) [#/Vol] 229 10*3/uL 150-450 [facility] Protein Auto test strip (U) [Mass/Vol]Ordered By: Cornell Mcnair on 12-08-2021 Protein (U) [Mass/Vol] Negative Negative [facility] Protein [Mass/volume] in Ser um or PlasmaOrdered By: Cornell Mcnair on 12-08-2021 Protein [Mass/Vol] 6.5 g/dL 6.1-7.9 [facility] RBC Auto (Bld) [#/Vol]Ordere d By: Cornell Mcnair on 12-08-2021 RBC (Bld) [#/Vol] 3.65 10*6/uL 3.60-5.00 [facility] Serum or plasma alanine cox otransferase measurement without P-5'-P (enzymatic activiOrdered By: Cornell Mcnair on 12-08-2021 ALT No additional P-5'-P [Catalytic activity/Vol] 11 U/L 10-60 [facility] Serum or plasma albumin/glob ulin mass ratioOrdered By: Cornell Mcnair on 12-08-2021 Albumin/Globulin [Mass ratio] 1.1 {ratio} [facility] Serum or plasma alkaline sam sphatase measurement (enzymatic activity/volume)Ordered By: Cornell Mcnair on 12-08-2021 ALP [Catalytic activity/Vol] 64 U/L 32-92 [facility] Serum or plasma aspartate am inotransferase measurement (enzymatic activity/volume)Ordered By: Cornell Mcnair on 12-08-2021 AST [Catalytic activity/Vol] 22 U/L 10-42 [facility] Serum or plasma calcium katie urement (mass/volume)Ordered By: Cornell Mcnair on 12-08-2021 Calcium [Mass/Vol] 8.9 mg/dL 8.2-10.2 [facility] Serum or plasma chloride victorino surement (moles/volume)Ordered By: Cornell Mcnair on 12-08-2021 Chloride [Moles/Vol] 106 mmol/L 95-114 [facility] Serum or plasma ethanol katie urement (mass/volume)Ordered By: Cornell Mcnair on 12-08-2021 Ethanol [Mass/Vol] mg/dL [facility] Ethanol [Mass/Vol] TNP [facility] Comment on above: Test not performed Serum or plasma glucose katie urement (mass/volume)Ordered By: Cornell Mcnair on 12-08-2021 Glucose [Mass/Vol] 86 mg/dL 70-100 [facility] Comment on above: ADA recommended refe rence range Random Glucose Reference Range is dependent on time and content of last meal. Glucose of more than 200 mg/dL in a nonstressed, ambulatory subject supports the diagnosis of Diabetes Mellitus. Serum or plasma potassium me asurement (moles/volume)Ordered By: Cornell Mcnair on 12-08-2021 Potassium [Moles/Vol] 3.9 mmol/L 3.5-5.1 [facility] Serum or plasma sodium measu rement (moles/volume)Ordered By: Cornell Mcnair on 12-08-2021 Sodium [Moles/Vol] 137 mmol/L 136-146 [facility] Serum or plasma total biliru bin measurement (mass/volume)Ordered By: Cornell Mcnair on 12-08-2021 Bilirubin [Mass/Vol] 0.4 mg/dL 0.3-1.2 [facility] Serum or plasma total carbon dioxide measurement (moles/volume)Ordered By: Cornell Mcnair on 12-08-2021 CO2 [Moles/Vol] 23.8 mmol/L 22.0-30.0 [facility] Serum or plasma urea nitroge n measurement (mass/volume)Ordered By: Cornell Mcnair on 12-08-2021 Urea nitrogen [Mass/Vol] 9 mg/dL 9-23 [facility] Specific gravity Auto test s trip (U) [Rel density]Ordered By: Cornell Mcnair on 12-08-2021 Specific gravity (U) [Rel density] 1.024 1.001-1.030 [facility] Squamous epithelial cells de tection in urine sediment by light microscopyOrdered By: Cornell Mcnair on 12-08-2021 Epithelial cells.squamous LM Ql (Urine sed) 10-19 [HPF] 0-2 [facility] Urine bacteria detection by automated methodOrdered By: Cornell Mcnair on 12-08-2021 Bacteria Auto Ql (U) None seen None Seen [facility] Urine clarity by refractomet ry automatedOrdered By: Cornell Mcnair on 12-08-2021 Clarity Refractometry automated (U) Cloudy Clear [facility] Urine cocaine detectionOrder ed By: Cornell Mcnair on 12-08-2021 Cocaine Ql (U) Negative Negative [facility] Urine glucose measurement by automated test strip (mass/volume)Ordered By: Cornell Mcnair on 12-08-2021 Glucose Auto test strip (U) [Mass/Vol] Normal mg/dL Normal [facility] Urine hemoglobin detection b y automated test stripOrdered By: Cornell Mcnair on 12-08-2021 Hemoglobin Auto test strip Ql (U) Negative Negative [facility] Urine leukocyte esterase det ection by automated test stripOrdered By: Cornell Mcnair on 12-08-2021 Leukocyte esterase Auto test strip Ql (U) 3+ Negative [facility] Urobilinogen Auto test strip (U) [Mass/Vol]Ordered By: Cornell Mcnair on 12-08-2021 Urobilinogen (U) [Mass/Vol] Normal mg/dL Normal [facility] Yeast detection in urine sed iment by light microscopyOrdered By: Cornell Mcnair on 12-08-2021 Yeast LM Ql (Urine sed) 1+ [HPF] None Seen [facility] pH Auto test strip (U)Ordere d By: Cornell Mcnair on 12-08-2021 pH (U) 5.0 [pH] 5.0-9.0 [facility] CNPNon 09-18-2021 CNPN Telephone ([facility]) ----- MARICARMEN ANDERSON ([id number]) 1980 F [facility] Date Time Provider Department 09/18/21 CLEMENTE ENG [facility] During your visit today, we recorded the following information about you: Uyen Dela Cruz 09/18/2021 9:54 AM Signed patient calling in with complaint of abdominal pain, swelling abdomen, dehydration and vomiting. Patient has not seen you since October 2020. Patient has been identified by name and birthdate.Yes Duration of symptoms: few days Person calling: self Call patient at: at home [phone] (home) [phone] (cell) Was an appointment scheduled: No Closing statement: Symptom Call: Thank you for calling [facility], your call is very important. A [...] She states she will go to a [facility] ER because local ER doesn't [...] by KATHI WATERMAN RN on 09/18/21 Normal [facility] MRI CERVICAL SPINE WO IVCONo n [...] vertebrae with counting from the craniocervical junction. Parts Sales Manager: PSC[employer] Transcribe Date/Time: Nov 13 2020 2:41P Dictated by : KURT MALIN MD This examination was interpreted and the report reviewed and electronically signed by: DHRUV KINGSLEY MD on Nov 13 2020 3:33PM EST [id number] Normal [facility] MRI KIDNEY WO/W IVCONon 05-2 MRI KIDNEY WO/W IVCON * * *Final Report* * * DATE OF EXAM: Nov 13 2020 3:11PM Q 0721 - MRI KIDNEY WO/W IVCON / [...] included: axial precontrast T1 weighted in- and [id number], axial and coronal HASTE, axial DWI with [...] NO SUSPICIOUS OR ENHANCING RENAL LESIONS OTHERWISE. Parts Sales Manager: LISA Transcribe Date/Time: Nov 13 2020 3:28P Dictated by : GAURAV RODRIGUEZ MD This examination was interpreted and the report reviewed and electronically signed by: NACHO BARONE DO on Nov 13 2020 7:26PM EST [id number] Normal [facility] XR CHEST 2V FRONTAL/LATon XR CHEST [...] disease identified in the lungs or mediastinum. Parts Sales Manager: LISA Transcribe Date/Time: Nov 13 2020 3:36P Dictated by : DESI MAHONEY MD This examination was interpreted and the report reviewed and electronically signed by: DESI MAHONEY MD on Nov 13 2020 3:38PM EST [id number] Normal [facility] Basic Metabolic Panlon 11-12 Anion gap [Moles/Vol] 9 mmol/L Normal 0-15 [facility] Calcium [Mass/Vol] 8.9 mg/dL Normal 8.5-10.2 [facility] Chloride [Moles/Vol] 112 mmol/L High 97-105 [facility] CO2 [Moles/Vol] 19 mmol/L Low 22-30 [facility] Creatinine [Mass/Vol] 0.73 mg/dL Normal 0.58-0.96 [facility] eGFR- Amer. >60 Normal [facility] eGFR-All Other Races >60 Normal [facility] Comment on above: Result Comment: eGFR (Estimated [...] GFR. Glucose [Mass/Vol] 89 mg/dL Normal 74-99 [facility] Potassium [Moles/Vol] 3.7 mmol/L Normal 3.7-5.1 [facility] Sodium [Moles/Vol] 140 mmol/L Normal 136-144 [facility] Urea nitrogen [Mass/Vol] 21 mg/dL Normal 7-21 [facility] Blood Cultureon 11-12-2020 Bacteria identified Cx Nom (Bld) Culture Result - No growth 5 days Normal [facility] Comment on above: Performed By: #### B LCUL ####[id number] [place], [place] [phone] Bacteria identified Cx Nom (Bld) Sp. Request/Comment: - 42.85CC Culture Result - No growth 5 days Normal [facility] Comment on above: Performed By: #### B LCUL ####[id number] [place], [place] [phone] CBCon 11-12-2020 Absolute nRBC <0.01 Normal <0.01 [facility] Erythrocyte distribution width (RBC) [Ratio] 16.8 % High 11.5-15.0 [facility] Hematocrit (Bld) [Volume fraction] 28.9 % Low 36.0-46.0 [facility] Hemoglobin (Bld) [Mass/Vol] 8.5 g/dL Low 11.5-15.5 [facility] MCH 26.6 pG Normal 26.0-34.0 [facility] MCHC (RBC) [Mass/Vol] 29.4 g/dL Low 30.5-36.0 [facility] MCV (RBC) [Entitic vol] 90.6 fL Normal 80.0-100.0 [facility] Platelet mean volume (Bld) [Entitic vol] 11.6 fL Normal 9.0-12.7 [facility] Platelets (Bld) [#/Vol] 167 10*3/uL Normal 150-400 [facility] RBC (Bld) [#/Vol] 3.19 10*6/uL Low 3.90-5.20 [facility] WBC (Bld) [#/Vol] 3.88 10*3/uL Normal 3.70-11.00 [facility] CNDSon 11-12-2020 [facility] HNO ID: [id number] Author: Lucero Wheeler DO Service: General Surgery [...] fevers. 40 year old female presented to [facility] on 11/09/2020 with fevers and left flank [...] needed for Nausea/Vo (more content not included)... [facility] CONSULT PROGon 11-12-2020 CONSULT PROG HNO ID: [id number] Author: Awais Gonzalez MD Service: Infectious Disease [...] Chest 3 days SIGNATURE: Awais Gonzalez MD [facility] NURSING PROGon 11-12-2020 NURSING PROG HNO ID: [id number] Author: Wisam Carvajal RN Service: ? Author Type: Registered Nurse Type: Nursing Progress Note Filed: 11/12/2020 6:21 PM Note Text: Nursing Progress Note Patient Name: Maricarmen Anderson Patient Location: /- Daily Note: 0920: Assessment complete, patient denies nausea, heat pad given for pain, will continue to monitor 1750: blood cultures collected and sent to lab 1820: Discharge instructions given This note was completed by: Wisam Carvajal Normal [facility] SHAMEKA Panel 1on 11-11-2020 SHAMEKA by EIA 0.8 OD Ratio Normal [facility] Comment on above: Result Comment: OD R atio is interpreted as follows: Negative <1.0 Positive >=1.0 Performed By: #### P REALB, TRANSF #### [facility] [employer] [address], [place] [id number] SHAMEKA by EIA, Qual Negative Normal Negative [facility] Comment on above: Performed By: #### P REALB, TRANSF #### [facility] [employer] [address] [place], [place] [id number] Basic Metabolic Panlon 11-11 Anion gap [Moles/Vol] 9 mmol/L Normal 0-15 [facility] Calcium [Mass/Vol] 9.2 mg/dL Normal 8.5-10.2 [facility] Chloride [Moles/Vol] 115 mmol/L High 97-105 [facility] CO2 [Moles/Vol] 19 mmol/L Low 22-30 [facility] Creatinine [Mass/Vol] 0.78 mg/dL Normal 0.58-0.96 [facility] eGFR- Amer. >60 Normal [facility] eGFR-All Other Races >60 Normal [facility] Comment on above: Result Comment: eGFR (Estimated [...] GFR. Glucose [Mass/Vol] 89 mg/dL Normal 74-99 [facility] Potassium [Moles/Vol] 3.8 mmol/L Normal 3.7-5.1 [facility] Sodium [Moles/Vol] 143 mmol/L Normal 136-144 [facility] Urea nitrogen [Mass/Vol] 20 mg/dL Normal 7-21 [facility] Blood Cultureon 11-11-2020 Bacteria identified Cx Nom (Bld) Culture Result - No growth 5 days Normal [facility] Comment on above: Performed By: #### B LCUL ####[facility] [place], [place] [phone] C-Reactive Proteinon 021 CRP [Mass/Vol] mg/L Normal 0.1-0.89 [facility] Comment on above: Performed By: #### P REALB, TRANSF #### [place] [id number] [place] [address] C3 Complementon 11-11-2020 C3 Complement 122 mg/dL Normal 86-166 [facility] Comment on above: Performed By: #### P REALB, TRANSF #### [place] [address] C4 Complementon 11-11-2020 C4 Complement 26 mg/dL Normal 13-46 [facility] Comment on above: Performed By: #### P REALB, TRANSF #### [place] [address] CBCon 11-11-2020 Absolute nRBC <0.01 Normal <0.01 [facility] Erythrocyte distribution width (RBC) [Ratio] 16.6 % High 11.5-15.0 [facility] Hematocrit (Bld) [Volume fraction] 30.0 % Low 36.0-46.0 [facility] Hemoglobin (Bld) [Mass/Vol] 8.9 g/dL Low 11.5-15.5 [facility] MCH 26.5 pG Normal 26.0-34.0 [facility] MCHC (RBC) [Mass/Vol] 29.7 g/dL Low 30.5-36.0 [facility] MCV (RBC) [Entitic vol] 89.3 fL Normal 80.0-100.0 [facility] Platelet mean volume (Bld) [Entitic vol] 11.5 fL Normal 9.0-12.7 [facility] Platelets (Bld) [#/Vol] 155 10*3/uL Normal 150-400 [facility] RBC (Bld) [#/Vol] 3.36 10*6/uL Low 3.90-5.20 [facility] WBC (Bld) [#/Vol] 4.41 10*3/uL Normal 3.70-11.00 [facility] CONSULTon 11-11-2020 CONSULT HNO ID: [id number] Author: Christopher Gonzalez V, MD Service: Infectious [...] Obesity, Class III, BMI 40-49.9 (morbid obesity) ([facility]) - Port-A-Cath in place patients right [...] tenderness PSYCH: No (more content not included)... [facility] NURSING PROGon 11-11-2020 NURSING PROG HNO ID: [id number] Author: Anne-Marie Farley, LAURYN Service: Nursing Author Type: Registered Nurse Type: Nursing Progress Note Filed: 11/11/2020 9:50 PM Note Text: Nursing Progress Note Patient Name: Maricarmen Anderson Patient Location: / Daily Note: 1945 received report, assumed pt care. According to medical team it is ok to use medport. 2147 Pt actively throwing up. Holding medications to be given when patient can swallow. 2147 Resident paged. This note was completed by: Anne-Marie Farley [facility] NURSING PROG HNO ID: [id number] Author: Carolina Lowry RN Service: ? Author Type: Registered Nurse Type: Nursing Progress Note Filed: 11/11/2020 7:46 PM Note Text: Nursing Progress Note Patient Name: Maricarmen Anderson Patient Location: [facility]/ [place] Daily Note:Nursing assessment completed see NPR. No signs of distress. 1600 Spoke with the surgery doctor, ok to continue using medport. This note was completed by: Carolina Lowry [facility] ALLIED HEALTH 11-10-2020 ALLIED HEALTH HNO ID: [id number] Author: RT Mary(Liz) Service: Radiology Author Type: Mercerizer Machine Operator Type: Allied Health Filed: 11/09/2020 11:44 PM [...] Mary(R) November 09, 2020 11:44 PM Normal [facility] Basic Metabolic Panlon 11-10 Anion gap [Moles/Vol] 9 mmol/L Normal 0-15 [facility] Calcium [Mass/Vol] 8.9 mg/dL Normal 8.5-10.2 [facility] Chloride [Moles/Vol] 114 mmol/L High 97-105 [facility] CO2 [Moles/Vol] 20 mmol/L Low 22-30 [facility] Creatinine [Mass/Vol] 0.83 mg/dL Normal 0.58-0.96 [facility] eGFR- Amer. >60 Normal [facility] eGFR-All Other Races >60 Normal [facility] Comment on above: Result Comment: eGFR (Estimated [...] GFR. Glucose [Mass/Vol] 93 mg/dL Normal 74-99 [facility] Potassium [Moles/Vol] 3.9 mmol/L Normal 3.7-5.1 [facility] Sodium [Moles/Vol] 143 mmol/L Normal 136-144 [facility] Urea nitrogen [Mass/Vol] 16 mg/dL Normal 7-21 [facility] HNO ID: [id number] Author: Estela Avila RN Service: ? 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 Last discharge within 30 days: No Advance Directive: Current Advance Directive: None Principal Technical Writer Attempted to Assist with AD Completion: Yes [...] None Has the Patient Been in a Penitentiary Facility in the Past 30 days?: No SOCIAL: Living Arrangements: Home Lives With: Son Financial Resources: Disabled Primary Contact: Extended Emergency Contact Information Primary Emergency Contact: Khalida Anaya Mobile Relation: Sister Secondary Emergency Contact: Lucero Chaves Mobile Relation: Mother Supportive Patient Contact:: Yes Contact Resources: Family Family Name/Phone: Sister Khalida Anaya/[phone] Caregiver AssessmentCaregiver is ready, willing and able [...] Completely I feel financially burdened by my [id number] expenses for my prescription medication:: 0 - Disagree Completely Risk Score: 0 Patient is categorized as: Low risk < 2 Are you interested in bedside delivery of your medications? No Is Patient Psychosocially Complex?: No ASSESSMENT AND PLAN: Medical Needs: Medical Needs: Two or more chronic diseases Psychosocial Needs: Psychosocial Needs: None FREEDOM OF CHOICE EXPLAINED: [place] of Choice Given: No Reason Not Given: [...] 10, 2020 TIME: 9:45 AM PAGER/CONTACT #: [phone] Normal [facility] CBCon 11-10-2020 Absolute nRBC <0.01 Normal <0.01 [facility] Erythrocyte distribution width (RBC) [Ratio] 16.6 % High 11.5-15.0 [facility] Hematocrit (Bld) [Volume fraction] 29.0 % Low 36.0-46.0 [facility] Hemoglobin (Bld) [Mass/Vol] 8.6 g/dL Low 11.5-15.5 [facility] MCH 26.5 pG Normal 26.0-34.0 [facility] MCHC (RBC) [Mass/Vol] 29.7 g/dL Low 30.5-36.0 [facility] MCV (RBC) [Entitic vol] 89.2 fL Normal 80.0-100.0 [facility] Platelet mean volume (Bld) [Entitic vol] 11.2 fL Normal 9.0-12.7 [facility] Platelets (Bld) [#/Vol] 165 10*3/uL Normal 150-400 [facility] RBC (Bld) [#/Vol] 3.25 10*6/uL Low 3.90-5.20 [facility] WBC (Bld) [#/Vol] 4.26 10*3/uL Normal 3.70-11.00 [facility] NURSING PROGon 11-10-2020 NURSING PROG HNO ID: [id number] Author: Carolina Lowry RN Service: ? Author Type: Registered Nurse Type: Nursing Progress Note Filed: 11/10/2020 9:53 AM Note Text: Nursing Progress Note Patient Name: Maricarmen Anderson Patient Location: [place]-931/ [place]-931-1 Daily Note:Nursing assessment completed see NPR. No signs of distress. This note was completed by: Carolina Lowry [facility] NUTRITIONon 11-10-2020 NUTRITION HNO ID: [id number] Author: Luz Watson RD Service: Nutrition Therapy [...] Weight loss;Patient/family self-report;Nausea;Vomiti ng Estimated kilocalorie needs: 5067-2389 kcal/day Calorie Calculation Method: 15-20 kcals/kg Estimated protein needs (grams): 76-100 gm protein/day Grams protein determined by: 1.3 - 1.7 g/kg;[place] body weight Care Plan: Continue current diet [...] protein shake. She ate 1 serving of croatian toast this morning and had emesis following. [...] November 10, 2020 TIME: 12:50 PM PAGER: [phone] Normal [facility] Urinalysis with Microscopico n 11-10-2020 Bacteria 3+ /HPF Critically abnormal Negative [facility] Bilirubin, Urine Negative Normal Negative [facility] Cast SEE COMMENT Normal 0 [facility] Comment on above: Result Comment: 0 Clarity (U) Clear Normal Clear [facility] Color (U) Yellow Normal Yellow [facility] Crystals LM Nom (Urine sed) SEE COMMENT Critically abnormal Negative [facility] Comment on above: Result Comment: 2+ Calcium Oxalate Epithelial cells LM Ql (Urine sed) SEE COMMENT Critically abnormal Occasional [facility] Comment on above: Result Comment: 1+ Squamous Epithelial Cells Glucose Ql (U) Negative Normal Negative [facility] Hemoglobin/Blood,Ur Negative Normal Negative [facility] Ketones Ql (U) Trace Critically abnormal Negative [facility] Leukest 1+ Critically abnormal Negative [facility] Mucus Ql (Urine sed) 1+ Normal [facility] Nitrite Ql (U) Negative Normal Negative [facility] pH (U) 6.5 [pH] Normal 5.0-8.0 [facility] Protein, Urine Trace Critically abnormal Negative [facility] RBC 3-5 Critically abnormal 0-3 [facility] Specific [place], Ur 1.025 Normal 1.005-1.030 [facility] Urobilinogen Qn (U) 1.0 {José'U}/dL Normal 0.2-1.0 [facility] WBC 26-50 Critically abnormal 0-5 [facility] XR LUMBAR 2V AP/LATon 2020 XR [...] 2V AP/LAT HISTORY: mid back pain (accession [id number]), back pain (accession [id number]) Mid-back/T-spine pain, initial exam. TECHNIQUE: XR THORACIC [...] on Nov 10 2020 7:09AM EST [id number] [facility] XR THORACIC 2V AP/LATon [...] 2V AP/LAT HISTORY: mid back pain (accession [id number]), back pain (accession [id number]) Mid-back/T-spine pain, initial exam. TECHNIQUE: XR THORACIC [...] on Nov 10 2020 7:09AM EST [id number] [facility] ALLIED HEALTHon 11-09-2020 ALLIED HEALTH HNO ID: [id number] Author: Uzair Monroy Service: Radiology Author Type: Mercerizer Machine Operator Type: Allied Health Filed: 11/09/2020 7:56 AM [...] Uzair Monroy November 09, 2020 7:55 AM [facility] ALLIED HEALTH HNO ID: [id number] Author: Uzair Monroy Service: Radiology Author Type: Mercerizer Machine Operator Type: Allied Health Filed: 11/09/2020 7:51 AM [...] Uzair Monroy November 09, 2020 7:51 AM [facility] Blood Cultureon 11-09-2020 Bacteria identified Cx Nom (Bld) Culture Result - No growth 5 days [facility] Comment on above: Performed By: #### B LCUL ####[facility] [place], [place] [phone] Bacteria identified Cx Nom (Bld) Additional Testing [...] and read back by: Nika Gore RN [facility] --> ABNORMAL ALERT [address] Surg 11/11/20 Brennan2 Chuckie Sharpe --> [...] microarray.(*) Called to and read back by: LAURYN QUINN from [facility] on --> ABNORMAL AL[facility]11[facility]20 [facility] ABNORMAL ALERT --> ABNORMAL ALERT Critically abnormal [facility] Comment on above: Performed By: #### B LCUL ####[facility] [address] [place], [place] [phone] CBC and Differentialon 11-09 Abs Baso <0.03 Normal <0.11 [facility] Abs Nash 0.29 k/uL Normal <0.87 [facility] Abs Neut 3.25 k/uL Normal 1.45-7.50 [facility] Absolute nRBC <0.01 Normal <0.01 [facility] Basophils/100 WBC (Bld) 0.4 % Normal [facility] DTYPE Auto Diff Normal [facility] Eosinophils (Bld) [#/Vol] 0.04 10*3/uL Normal <0.46 [facility] Eosinophils/100 WBC (Bld) 0.8 % Normal [facility] Erythrocyte distribution width (RBC) [Ratio] 16.3 % High 11.5-15.0 [facility] Hematocrit (Bld) [Volume fraction] 31.9 % Low 36.0-46.0 [facility] Hemoglobin (Bld) [Mass/Vol] 9.6 g/dL Low 11.5-15.5 [facility] Lymphocytes (Bld) [#/Vol] 1.33 10*3/uL Normal 1.00-4.00 [facility] Lymphocytes/100 WBC (Bld) 26.9 % Normal [facility] MCH 26.0 pG Normal 26.0-34.0 [facility] MCHC (RBC) [Mass/Vol] 30.1 g/dL Low 30.5-36.0 [facility] MCV (RBC) [Entitic vol] 86.4 fL Normal 80.0-100.0 [facility] Monocytes/100 WBC (Bld) 5.9 % Normal [facility] Neutrophils/100 WBC (Bld) 66.0 % Normal [facility] NRBCs 0.0 /100 WBC Normal 0 [facility] Platelet mean volume (Bld) [Entitic vol] 11.0 fL Normal 9.0-12.7 [facility] Platelets (Bld) [#/Vol] 173 10*3/uL Normal 150-400 [facility] RBC (Bld) [#/Vol] 3.69 10*6/uL Low 3.90-5.20 [facility] WBC (Bld) [#/Vol] 4.95 10*3/uL Normal 3.70-11.00 [facility] CTA ABD/PELV W IVCONon 11-09 CTA ABD/PELV W IVCON * * *Final Report* * * DATE OF EXAM: Nov 09 2020 10:53AM [facility]11 - CTA ABD/PELV W IVCON / [...] Nov 09 2020 10:53AM EST [id number] Normal [facility] CTA CHEST (NONGATED) W IVCON on [...] Nov 09 2020 10:53AM EST [id number] Normal [facility] Comp Metabolic Panelon 11-09 Albumin [Mass/Vol] 3.9 g/dL Normal 3.5-5.0 [facility] ALP [Catalytic activity/Vol] 56 U/L Normal 34-123 [facility] ALT [Catalytic activity/Vol] 9 U/L Normal 7-38 [facility] Anion gap [Moles/Vol] 9 mmol/L Normal 0-15 [facility] AST [Catalytic activity/Vol] 16 U/L Normal 13-35 [facility] Bilirubin [Mass/Vol] 0.5 mg/dL Normal 0.2-1.3 [facility] Calcium [Mass/Vol] 9.4 mg/dL Normal 8.5-10.2 [facility] Chloride [Moles/Vol] 110 mmol/L High 97-105 [facility] CO2 [Moles/Vol] 21 mmol/L Low 22-30 [facility] Creatinine [Mass/Vol] 0.75 mg/dL Normal 0.58-0.96 [facility] eGFR- Amer. >60 Normal [facility] eGFR-All Other Races >60 Normal [facility] Comment on above: Result Comment: eGFR (Estimated [...] GFR. Glucose [Mass/Vol] 91 mg/dL Normal 74-99 [facility] Potassium [Moles/Vol] 3.6 mmol/L Low 3.7-5.1 [facility] Protein [Mass/Vol] 6.6 g/dL Normal 6.3-8.0 [facility] Sodium [Moles/Vol] 140 mmol/L Normal 136-144 [facility] Urea nitrogen [Mass/Vol] 17 mg/dL Normal 7-21 [facility] D dimeron 11-09-2020 D dimer 770 ng/mL FEU High <500 [facility] Comment on above: Result Comment: 500 [...] >96.5% and a specificity of >38.8%. Reference: Emilyhialex M, et al. MAE 2014 311:1117 and Van Darcie N, et al. Kellen Int Med 2016 165:253. ED NOTEon 11-09-2020 ED NOTE HNO ID: [id number] Author: Yaya Singletary RN Service: ? Author Type: Registered Nurse Type: ED Notes Filed: 11/09/2020 1:34 PM Note Text: Report called to Abbey RN. All questions addressed. Vitals updated. Family at bedside. Pt NAD at this time. This RN at bedside to transport pt. Floor nurse aware of blood cultures and covid in process. Normal [facility] ED NOTE HNO ID: [id number] Author: Yaya Singletary RN Service: ? Author Type: Registered Nurse Type: ED Notes Filed: 11/09/2020 7:44 AM Note Text: Portable CXR at bedside. [facility] ED NOTE HNO ID: [id number] Author: Yaya Singletary RN Service: ? Author Type: Registered Nurse Type: ED Notes Filed: 11/09/2020 7:18 AM Note Text: Assumed care of patient from Traci DIEGO. Pt in room standing up at bedside with emesis bag. NAD or active vomiting at this time. Joy PAULSON in room to talk with patient. [facility] ED NOTE HNO ID: [id number] Author: Connie Vazquez RN Service: ? 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 Normal [facility] High Sens Troponin Ton 11-09 High Sensitivity SALLY 6 ng/L Normal <12 [facility] Comment on above: Result Comment: When assessing [...] High Sensitivity SALLY 6 ng/L Normal <12 [facility] Comment on above: Result Comment: When assessing [...] CRISTINA+probe Ql (Unsp spec) Nasopharyngeal Swab Normal [facility] Comment on above: Performed By: #### I TCOVD ####[address] [phone] SARS-CoV-2 (COVID-19) RNA CRISTINA+probe Ql (Unsp spec) Negative for COVID19 (SARS CoV2) by RT-PCR or equivalent method. Normal Negative for COVID19 (SARS CoV2) by RT-PCR or equivalent method. [facility] Comment on above: Result Comment: This test was developed and its performance characteristics determined by [facility]'s [facility] [place]. This test has been authorized by FDA under an Emergency Use Authorization (EUA). This test has been validated in accordance with the FDA's Guidance Document Policy for Diagnostics Testing in Laboratories Certified to Perform High Complexity Testing under CLIA prior to Emergency use Authorization for Coronavirus Disease 2019 during the Public Health Emergency issued on August 20, 2019. Test performed by [facility], [facility] [place], [address] [place], [place] [address]. Performed By: #### I TCOVD ####[facility] [address] [place], [place] [phone] Lipaseon 11-09-2020 Lipase [Catalytic activity/Vol] 21 U/L Normal 16-61 [facility] NURSING PROGon 11-09-2020 NURSING PROG HNO ID: [id number] Author: Saskia Cm RN Service: ? Author Type: Registered Nurse Type: Nursing Progress Note Filed: 11/10/2020 6:04 AM Note Text: Nursing Progress Note Patient Name: Maricarmen Anderson Patient Location: [place]/ [place] Daily Note: Received report from LAURYN Joel. 2019: Assessment completed, patient states feeling better than she did earlier today. Safety maintained, will continue to monitor. 2215: Observed patient asleep. 0005: Patient back up to floor from radiology. 0200: Observed patient asleep. 0309: Blood work collected. 0500: Observed patient asleep. 0603: Patient rates pain 8/10; paged resident. This note was completed by: Saskia Cm [facility] NURSING PROG HNO ID: [id number] Author: Wisam Carvajal RN Service: ? Author Type: Registered Nurse Type: Nursing Progress Note Filed: 11/09/2020 7:00 PM Note Text: Nursing Progress Note Patient Name: Maricarmen Anderson Patient Location: [place]/ [place]- Daily Note: 1454: assessment complete, patient complains of severe left flank pain and nausea, will continue to monitor 1845: Blood cultures collected and sent to lab This note was completed by: Wisam Carvajal [facility] NURSING PROG HNO ID: [id number] Author: Wisam Carvajal, RN Service: ? Author Type: Registered Nurse Type: Nursing Progress Note Filed: 11/09/2020 5:16 PM Note Text: Nursing Progress Note Patient Name: Maricarmen Anderson [facility] Transfer Note: Patient transferred into room/unit 931 in stable condition. Actions taken: No futher actions taken at this time. Will continue to monitor and check with patient. This note was completed by: Wisam Carvajal [facility] Urinalysis with Microscopico n 11-09-2020 Bacteria 3+ /HPF Critically abnormal Negative [facility] Bilirubin, Urine Negative Normal Negative [facility] Cast SEE COMMENT Normal 0 [facility] Comment on above: Result Comment: 0 Clarity (U) Slightly Cloudy Critically abnormal Clear [facility] Color (U) Yellow Normal Yellow [facility] Epithelial cells LM Ql (Urine sed) SEE COMMENT Critically abnormal Occasional [facility] Comment on above: Result Comment: 2+ Squamous Epithelial Cells Glucose Ql (U) Negative Normal Negative [facility] Hemoglobin/Blood,Ur Negative Normal Negative [facility] Ketones Ql (U) Negative Normal Negative [facility] Leukest 1+ Critically abnormal Negative [facility] Nitrite Ql (U) Negative Normal Negative [facility] pH (U) 6.5 [pH] Normal 5.0-8.0 [facility] Protein, Urine Trace Critically abnormal Negative [facility] RBC 0-3 Normal 0-3 [facility] Specific [place], Ur >=1.030 Normal 1.005-1.030 [facility] Urobilinogen Qn (U) 2.0 {José'U}/dL High 0.2-1.0 [facility] WBC 6-10 Critically abnormal 0-5 [facility] Urine Cultureon 11-09-2020 Bacteria identified Cx [...] Result - <10,000 CFU/ml Normal urogenital yogesh [facility] Comment on above: Performed By: #### U RCUL ####[facility] [place], [place] [phone] XR CHEST 1V FRONTAL PORTon 0 11-09-2020 [...] Nov 09 2020 7:59AM EST [id number] [facility] 11-08-2020 [facility] ----- MARICARMEN ANDERSON ([id number]) 1980 F T Date Time Provider Department 11/08/20 CLEMENTE ENG During your visit today, we recorded the following information about you: BYRON Richter 11/08/2020 9:29 AM Signed Called PCP office (Dr Viktor Sotelo) [phone] is out of the office this week. Asked if Nurse could fax copies of recent lab work, imaging that may have been done while patient was recently hospitalized last week. BYRON Richter CT 11/09/2020 8:17 AM Signed Outside records received and scanned to [facility] Forwarded to Dr Eng. BYRON [...] Encounter Status:Closed by NICOLETTE SANCHEZ [facility]09/[facility] ----- MARICARMEN ANDERSON ([id number]) 1980 F [facility] Date Time Provider Department 11/05/20 CLEMENTE ENG During your visit today, we recorded the following information about you: Nicolette Sanchez, BYRON 11/05/2020 9:58 AM Signed Patient called. She [...] Date Reviewed: 09/29/2020 Reviewed by: Anne-Marie (Rn) LAURYN Farley - Fully Assessed Reason for Visit: Patient Question [8869] Prescriptions as of 11/05/2020 Sig: LORAZEPAM 0.5 [...] Status:Closed by CARLOS ALBERTO SIMMONS on 11/07/20 [facility] 2020 CNPN Telephone (NSCAMN) ----- MARICARMEN ANDERSON ([id number]) 1980 F T Date Time Provider Department 10/30/20 EMELIA BALDWIN NSCAMN During your visit today, we recorded the following information about you: Urmila Hein [facility] 2020 8:29 AM Signed Order Request Caller : Maricarmen Contact Order Being Requested : MRI Cervical Spine Orders need to be placed in [facility] Laith Donaldson RN 2020 12:42 PM Signed Called patient via phone. Notified her that imaging orders were available in chart and she could schedule at her convenience. Patient verbalized understanding. Allergies As of Date: 2020 Noted Allergy Reaction DILAUDID (HYDROMORPHONE (BULK)) 03/28/2019 9 - Itching Date Reviewed: 09/29/2020 Reviewed by: Anne-Marie (Rn) LAURYN Farley - Fully Assessed Reason for Visit: Orders [681] Cmt: MRI Cervical Spine Visit Diagnosis:Chiari I malformation (HCC) [G93.5] Order(s):MRI CERVICAL SPINE WO IVCON [[id number]] Order #: [id number] FUTURE Prescriptions as of 2020 Sig: LORAZEPAM [...] Encounter Status:Closed by LAITH DONALDSON on 10/30/20 [facility] Raman 10-22-2020 [place] Telephone (SPPRAD) ----- JUSTINMARICARMEN ([id number]) 1980 F [facility] Date Time Provider Department 10/22/20 CLEMENTE ENG [...] Date Reviewed: 09/29/2020 Reviewed by: Anne-Marie (Rn) LAURYN Farley - Fully Assessed Reason for Visit: Radio Imaging Study Comments [6757] Prescriptions as of 10/22/2020 Sig: IV CONTRAST [...] Status:Closed by CLEMENTE ENG on 10/22/20 [facility] 10-08-2020 [facility] Telephone (Myfacepage) ----- MARICARMEN ANDERSON ([id number]) 1980 F [facility] Date Time Provider Department 10/08/20 CLEMENTE [...] patient should come to the ER at [facility] if she is dehydrated and a new [...] Date Reviewed: 09/29/2020 Reviewed by: Anne-Marie (Rn) LAURYN Farley - Fully Assessed Reason for Visit: Patient Question [1477] Prescriptions as of 10/08/2020 Sig: ACETAZOLAMIDE 250 [...] Status:Closed by NICOLETTE KING on 10/09/20 Normal [facility] Basic Metabolic Panlon 09-29 Anion gap [Moles/Vol] 10 mmol/L Normal 0-15 [facility] Comment on above: Performed By: #### P REALB ####[facility] [place] [address] [phone] Calcium [Mass/Vol] 9.4 mg/dL Normal 8.5-10.2 [facility] Comment on above: Performed By: #### P REALB ####[facility] [address] [place], [place] [phone] Chloride [Moles/Vol] 110 mmol/L High 97-105 [facility] Comment on above: Performed By: #### P REALB ####[facility] [place], [place] [phone] CO2 [Moles/Vol] 20 mmol/L Low 22-30 [facility] Comment on above: Performed By: #### P REALB ####[address] [phone] Creatinine [Mass/Vol] 0.75 mg/dL Normal 0.58-0.96 [facility] Comment on above: Performed By: #### P REALB ####[address] [phone] eGFR- Amer. >60 Normal [facility] Comment on above: Performed By: #### P REALB ####[address] [phone] eGFR-All Other Races >60 Normal [facility] Comment on above: Result Comment: eGFR (Estimated [...] actual GFR. Performed By: #### P REALB ####[address] [phone] Glucose [Mass/Vol] 108 mg/dL High 74-99 [facility] Comment on above: Performed By: #### P REALB ####[address] [phone] Potassium [Moles/Vol] 3.6 mmol/L Low 3.7-5.1 [facility] Comment on above: Performed By: #### P REALB ####[address] [phone] Sodium [Moles/Vol] 140 mmol/L Normal 136-144 [facility] Comment on above: Performed By: #### P REALB ####[address] [phone] Urea nitrogen [Mass/Vol] 12 mg/dL Normal 7-21 [facility] Comment on above: Performed By: #### P REALB ####[facility] [address] [place], [place] [phone] CASE MANAGEMon 09-29-2020 CASE MANAGEM HNO ID: [id number] Author: Wiliam Santamaria Service: Case Management Author [...] the process utilized to ensure compliance with [facility] policy regarding Inpatient Admission and Observation Services. [...] physician's order as documented evidence of concurrence. Normal [facility] CASE MGT INIT Cory 2020 CASE MGT INIT JORGE HNO ID: [id number] Author: Anaid (Rn) LAURYN Valencia Service: ? Author Type: Registered Nurse Type: Care Mgt Initial Assessment Filed: 09/29/2020 11:10 AM Note Text: CARE MANAGEMENT: ASSESSMENT AND DISCHARGE PLAN SERVICE DATE: September 29, 2020 SERVICE TIME: 1030 PRIMARY CARE PHYSICIAN: Viktor Sotelo MD ADMISSION STATUS: Inpatient Needs Prior to Discharge: (Tube Feeding Prescription) MEDICAL: MEDICARE A AND B Patient/Instructor Traffic Safety Stated Goals: This has been discussed with my physician Health Insurance: Medicare Health Issues Impacting Discharge Plan: Chronic Chronic: Gastroparesis Last Discharge Date: 05/29/20 Is this Within the Past 30 days? Last discharge within 30 days: No Advance Directive: Current Advance Directive: None Principal Technical Writer Attempted to Assist with AD Completion: Yes [...] supplies Has the Patient Been in a Penitentiary Facility in the Past 30 days?: No [...] Mostly I feel financially burdened by my jtr-ae-qrrhef expenses for my prescription medication:: 0 - Disagree Mostly Risk Score: 0 Patient is categorized as: Low risk < 2 Are you interested in bedside delivery of your medications? Not known ASSESSMENT AND PLAN: Medical Needs: Medical Needs: Two or more chronic diseases;Nutritional Nutrition Needs: Tube Feed Psychosocial Needs: Psychosocial Needs: None FREEDOM OF CHOICE EXPLAINED: [place] of Choice Given: No (No new placeement needed and to continue with [facility]) POTENTIAL TRANSITION PLANS Home Care;Home Care Pharmacy Patient's young son lives with her, and when asked, she states that she is independent. Patient is on home enteral tube feedings via jejunostomy and here for malfunctioning tube. Provider is [facility] and referral sent. Patient is independent with [...] 29, 2020 TIME: 11:04 AM PAGER/CONTACT #: [phone] Normal [facility] CBCon 09-29-2020 Absolute nRBC <0.01 Normal <0.01 [facility] Comment on above: Performed By: #### P REALB ####[facility] [address] [place], [place] [phone] Erythrocyte distribution width (RBC) [Ratio] 15.3 % High 11.5-15.0 [facility] Comment on above: Performed By: #### P REALB ####[facility] [address] [place], [place] [phone] Hematocrit (Bld) [Volume fraction] 30.3 % Low 36.0-46.0 [facility] Comment on above: Performed By: #### P REALB ####[place] [address] [address] [place], [place] [phone] Hemoglobin (Bld) [Mass/Vol] 9.1 g/dL Low 11.5-15.5 [facility] Comment on above: Performed By: #### P REALB ####[address] [place], [place] [phone] MCH 25.9 pG Low 26.0-34.0 [facility] Comment on above: Performed By: #### P REALB ####[place] [address] [address] [place], [place] [phone] MCHC (RBC) [Mass/Vol] 30.0 g/dL Low 30.5-36.0 [facility] Comment on above: Performed By: #### P REALB ####[address] [place], [place] [phone] MCV (RBC) [Entitic vol] 86.3 fL Normal 80.0-100.0 [facility] Comment on above: Performed By: #### P REALB ####[address] [phone] Platelet mean volume (Bld) [Entitic vol] 10.6 fL Normal 9.0-12.7 [facility] Comment on above: Performed By: #### P REALB ####[place] [address] [place] [place], [place] [phone] Platelets (Bld) [#/Vol] 170 10*3/uL Normal 150-400 [facility] Comment on above: Performed By: #### P REALB ####[address] [place], [place] [phone] RBC (Bld) [#/Vol] 3.51 10*6/uL Low 3.90-5.20 [facility] Comment on above: Performed By: #### P REALB ####[address], [place] [phone] WBC (Bld) [#/Vol] 6.60 10*3/uL Normal 3.70-11.00 [facility] Comment on above: Performed By: #### P RALPH ####[facility] [address] [place], [place] [phone] CNDSon 09-29-2020 CNDS HNO ID: [id number] Author: Maynor Manley DO Service: General Surgery [...] DATE: September 29, 2020 TIME: 11:09 AM [facility] CT ABD/PEL WO IVCONon 2020 CT ABD/PEL WO IVCON * * *Final Report* * * DATE OF EXAM: Sep 28 2020 10:39PM [facility] 0531 - CT ABD/PEL WO IVCON / [...] Tissues: No acute abnormality. Lower thorax: Unremarkable. Campus Recruiting Coordinator (topogram) images: No additional findings. IMPRESSION: Retracted [...] Sep 28 2020 11:12PM EST [id number] Normal [facility] Coronavirus 2019on 1 SARS-CoV-2 (COVID-19) RNA CRISTINA+probe Ql (Unsp spec) Nasopharyngeal Swab Normal [facility] Comment on above: Performed By: #### C OVID ####[facility] [place], [place] [phone] SARS-CoV-2 (COVID-19) RNA CRISTINA+probe Ql (Unsp spec) Negative Normal Negative for COVID19 (SARS CoV2) by PCR. [facility] Comment on above: Result Comment: This test was developed and its performance characteristics determined by [facility]'s [facility] Pathology and Laboratory Medicine [place]. This test has been authorized by FDA under an Emergency Use Authorization (EUA). This test has been validated in accordance with the FDA's Guidance Document Policy for Diagnostics Testing in Laboratories Certified to Perform High Complexity Testing under CLIA prior to Emergency use Authorization for Coronavirus Disease 2019 during the Public Health Emergency issued on August 20, 2019. Test performed by [facility], [facility] [place], [address] [place], [place] [address]. Performed By: #### C OVID ####[facility] [address] [place], [place] [phone] ED NOTEon 09-29-2020 ED NOTE HNO ID: [id number] Author: Soco VasquezRn) LAURYN Bardales Service: ? Author Type: Registered Nurse Type: ED Notes Filed: 09/28/2020 11:04 PM Note Text: covid obtained and sent. [facility] NURSING PROGon 09-29-2020 NURSING PROG HNO ID: [id number] Author: Mercy VasquezRn) LAURYN Whitaker Service: ? Author Type: Registered Nurse Type: Nursing Progress Note Filed: 09/29/2020 12:51 PM Note Text: Nursing Progress Note Patient Name: Maricarmen Anderson Patient Location: [place]/ [place] Daily Note: patient resting in bed, made NPO for removal of J-tube. This note was completed by: Mercy Whitaker RN [facility] NURSING PROG HNO ID: [id number] Author: Anne-Marie VasquezRn) LAURYN Farley Service: Nursing Author Type: Registered Nurse Type: Nursing Progress Note Filed: 09/29/2020 7:33 AM Note Text: Nursing Progress Note Patient Name: Maricarmen Anderson Patient Location: [place]/ [place] Daily Note: 0054 Pt arrived in room, oriented to floor and room, safety maintained. 0100 Pt has a fever tylenol given. 0733 Report given to Mercy (Lauryn). This note was completed by: Anne-Marie Farley RN [facility] NUTRITIONon 09-29-2020 NUTRITION HNO ID: [id number] Author: Molly Tello) Gurpreet Service: Nutrition Therapy Author Type: Registered Dietitian Type: Nutrition Filed: 09/29/2020 11:21 AM Note Text: NUTRITION THERAPY INITIAL ASSESSMENT SERVICE DATE: 09/29/2020 SERVICE TIME: 11:13 AM Nutrition Assessment: Recommended Malnutrition Diagnosis: No Malnutrition Identified Nutrition Diagnosis: Problem: Inadequate Enteral Nutrition Infusion Related to: Mechanical cause As evidenced by: Patient/family self-report Estimated kilocalorie needs: 2269 Calorie Calculation Method: HarmonySkyWire[employer]. [employer] (with activity factor) (1.3) Estimated protein needs (grams): 77-100 Grams protein determined by: 1.3 - 1.7 g/kg;[place] body weight Care Plan: Advance diet to regular diet with TF Supplements: zone bar, Boost GC, and loraine Wozityou each daily Enteral Nutrition Tube Feeding Formula Type: Loraine Agrican Peptide 1.5 Goal Rate (mL/hr x hours): [...] Frequency 7. BREAKFAST, LUNCH, DINNER Supplement 3 Bon-Privé 1.0 CHOCOLATE Supplement 3 Frequency 7. BREAKFAST, [...] Assess/15 min 3 units SIGNATURE: Molly Vázquez, ,RD,LD,[facility] PATIENT NAME: Maricarmen Anderson DATE: September 29, 2020 TIME: 11:13 AM PAGER: [phone] Normal [facility] Prealbuminon 09-29-2020 Prealbumin [Mass/Vol] 21 mg/dL Normal 17-36 [facility] Comment on above: Performed By: #### P REALB ####[address] [phone] CBC and Differentialon 09-28 Abs Baso <0.03 Normal <0.11 [facility] Abs Nash 0.28 k/uL Normal <0.87 [facility] Abs Neut 5.26 k/uL Normal 1.45-7.50 [facility] Absolute nRBC <0.01 Normal <0.01 [facility] Basophils/100 WBC (Bld) 0.3 % Normal [facility] DTYPE Auto Diff Normal [facility] Eosinophils (Bld) [#/Vol] 0.04 10*3/uL Normal <0.46 [facility] Eosinophils/100 WBC (Bld) 0.6 % Normal [facility] Erythrocyte distribution width (RBC) [Ratio] 15.2 % High 11.5-15.0 [facility] Hematocrit (Bld) [Volume fraction] 31.5 % Low 36.0-46.0 [facility] Hemoglobin (Bld) [Mass/Vol] 9.3 g/dL Low 11.5-15.5 [facility] Lymphocytes (Bld) [#/Vol] 0.93 10*3/uL Low 1.00-4.00 [facility] Lymphocytes/100 WBC (Bld) 14.2 % Normal [facility] MCH 25.6 pG Low 26.0-34.0 [facility] MCHC (RBC) [Mass/Vol] 29.5 g/dL Low 30.5-36.0 [facility] MCV (RBC) [Entitic vol] 86.8 fL Normal 80.0-100.0 [facility] Monocytes/100 WBC (Bld) 4.3 % Normal [facility] Neutrophils/100 WBC (Bld) 80.6 % Normal [facility] NRBCs 0.0 /100 WBC Normal 0 [facility] Platelet mean volume (Bld) [Entitic vol] 10.4 fL Normal 9.0-12.7 [facility] Platelets (Bld) [#/Vol] 186 10*3/uL Normal 150-400 [facility] RBC (Bld) [#/Vol] 3.63 10*6/uL Low 3.90-5.20 [facility] WBC (Bld) [#/Vol] 6.54 10*3/uL Normal 3.70-11.00 [facility] C[facility]N Telephone (GENSSP) ----- ANYMARICARMEN GRECO ([id number]) 1980 F T Date Time Provider Department 09/28/20 CLEMENTE ENG [...] She would like J tube removed. Nicolette Sanchez, CT Clemente Eng MD 09/28/2020 4:47 PM Signed Addended [...] Date Reviewed: 09/28/2020 Reviewed by: Keven (Rn) LAURYN Reid - Fully Assessed Reason for Visit: Patient Question [2737] Primary Visit Diagnosis:Gastrojejunosto my tube dislodgement [T85.528A] Order(s):XR ABDOMEN 1V SUPINE [[id number]] Order #: [id number] FUTURE Prescriptions as of 09/28/2020 Sig: ACETAZOLAMIDE [...] Encounter Status:Closed by NICOLETTE KING on 09/28/20 [facility] CONSULTon 09-28-2020 CONSULT HNO ID: [id number] Author: Elissa Medina MD Service: General Surgery [...] Obesity, Class III, BMI 40-49.9 (morbid obesity) ([facility]) - Port-A-Cath in place patients right [...] swelling RESPIRATO (more content not included)... Normal [facility] Comp Metabolic Panelon 09-28 Albumin [Mass/Vol] 4.3 g/dL Normal 3.5-5.0 [facility] ALP [Catalytic activity/Vol] 72 U/L Normal 34-123 [facility] ALT [Catalytic activity/Vol] 11 U/L Normal 7-38 [facility] Anion gap [Moles/Vol] 11 mmol/L Normal 0-15 [facility] AST [Catalytic activity/Vol] 19 U/L Normal 13-35 [facility] Bilirubin [Mass/Vol] 0.4 mg/dL Normal 0.2-1.3 [facility] Calcium [Mass/Vol] 9.6 mg/dL Normal 8.5-10.2 [facility] Chloride [Moles/Vol] 110 mmol/L High 97-105 [facility] CO2 [Moles/Vol] 18 mmol/L Low 22-30 [facility] Creatinine [Mass/Vol] 0.68 mg/dL Normal 0.58-0.96 [facility] eGFR- Amer. >60 Normal [facility] eGFR-All Other Races >60 Normal [facility] Comment on above: Result Comment: eGFR (Estimated [...] GFR. Glucose [Mass/Vol] 97 mg/dL Normal 74-99 [facility] Potassium [Moles/Vol] 3.8 mmol/L Normal 3.7-5.1 [facility] Protein [Mass/Vol] 7.3 g/dL Normal 6.3-8.0 [facility] Sodium [Moles/Vol] 139 mmol/L Normal 136-144 [facility] Urea nitrogen [Mass/Vol] 14 mg/dL Normal 7-21 [facility] ED NOTEon 09-28-2020 ED NOTE HNO ID: [id number] Author: Arminda VasquezRn) LUARYN Wong Service: ? Author Type: Registered Nurse Type: ED Notes Filed: 09/28/2020 9:17 PM Note Text: Pt has finished Contrast via tube Normal [facility] ED NOTE HNO ID: [id number] Author: Keven VasquezRn) LAURYN Reid Service: ? Author Type: Registered Nurse [...] rails up x2. Call bagley within reach. [facility] ED PROV NOTEon 09-28-2020 ED PROV NOTE HNO ID: [id number] Author: LORENE Singleton Service: Emergency Medicine Author Type: Physician Distributor Operator Type: ED Provider Notes Filed: 09/28/2020 11:36 [...] Obesity, Class III, BMI 40-49.9 (morbid obesity) ([facility]) - Port-A-Cath in place patients right [...] of the (more content not included)... Normal [facility] Lipaseon 09-28-2020 Lipase [Catalytic activity/Vol] 30 U/L Normal 16-61 [facility] Basic Metabolic Panlon 05-29 Anion gap [Moles/Vol] 10 mmol/L Normal 0-15 [facility] Calcium [Mass/Vol] 9.2 mg/dL Normal 8.5-10.2 [facility] Chloride [Moles/Vol] 106 mmol/L High 97-105 [facility] CO2 [Moles/Vol] 23 mmol/L Normal 22-30 [facility] Creatinine [Mass/Vol] 0.78 mg/dL Normal 0.58-0.96 [facility] eGFR- Amer. >60 Normal [facility] eGFR-All Other Races >60 Normal [facility] Comment on above: Result Comment: eGFR (Estimated [...] GFR. Glucose [Mass/Vol] 88 mg/dL Normal 74-99 [facility] Potassium [Moles/Vol] 3.9 mmol/L Normal 3.7-5.1 [facility] Sodium [Moles/Vol] 139 mmol/L Normal 136-144 [facility] Urea nitrogen [Mass/Vol] 8 mg/dL Normal 7-21 [facility] CBC and Differentialon 05-29 Abs Baso <0.03 Normal <0.11 [facility] Abs Nash 0.33 k/uL Normal <0.87 [facility] Abs Neut 2.58 k/uL Normal 1.45-7.50 [facility] Absolute nRBC <0.01 Normal <0.01 [facility] Basophils/100 WBC (Bld) 0.5 % Normal [facility] DTYPE Auto Diff Normal [facility] Eosinophils (Bld) [#/Vol] 0.08 10*3/uL Normal <0.46 [facility] Eosinophils/100 WBC (Bld) 1.9 % Normal [facility] Erythrocyte distribution width (RBC) [Ratio] 13.5 % Normal 11.5-15.0 [facility] Hematocrit (Bld) [Volume fraction] 27.4 % Low 36.0-46.0 [facility] Hemoglobin (Bld) [Mass/Vol] 8.4 g/dL Low 11.5-15.5 [facility] Lymphocytes (Bld) [#/Vol] 1.25 10*3/uL Normal 1.00-4.00 [facility] Lymphocytes/100 WBC (Bld) 29.3 % Normal [facility] MCH 27.6 pG Normal 26.0-34.0 [facility] MCHC (RBC) [Mass/Vol] 30.7 g/dL Normal 30.5-36.0 [facility] MCV (RBC) [Entitic vol] 90.1 fL Normal 80.0-100.0 [facility] Monocytes/100 WBC (Bld) 7.7 % Normal [facility] Neutrophils/100 WBC (Bld) 60.6 % Normal [facility] NRBCs 0.0 /100 WBC Normal 0 [facility] Platelet mean volume (Bld) [Entitic vol] 10.9 fL Normal 9.0-12.7 [facility] Platelets (Bld) [#/Vol] 148 10*3/uL Low 150-400 [facility] RBC (Bld) [#/Vol] 3.04 10*6/uL Low 3.90-5.20 [facility] WBC (Bld) [#/Vol] 4.27 10*3/uL Normal 3.70-11.00 [facility] CNDSon 05-29-2020 [facility] HNO ID: [id number] Author: Deirdre Dejesus Service: General Surgery Author [...] Suppository by RECTAL (more content not included)... [facility] NURSING PROGon 05-29-2020 NURSING PROG HNO ID: [id number] Author: Mitchel (Rn) LAURYN Larry Service: Nursing Author Type: Registered Nurse Type: Nursing Progress Note Filed: 05/29/2020 3:35 PM Note Text: Nursing Progress Note Patient Name: Maricarmen Anderson Patient [facility] Assumed care of patient after report from night RN. 1311 tube feed rate increased to goal rate of 55 ml/hr. Dr. Eng (PCP) plans to discharge today. No distress at this time. Patient expressing eagerness to go home [address] Allemang he is to have biology intern write up discharge order and instructions. This note was completed by: Mitchel Larry RN [facility] NUTRITIONon 05-29-2020 NUTRITION HNO ID: [id number] Author: Maricarmen Tello) Jack Service: Nutrition Therapy Author Type: Registered Dietitian Type: Nutrition Filed: 05/29/2020 11:16 AM Note Text: NUTRITION THERAPY PROGRESS NOTE SERVICE DATE: 05/29/2020 SERVICE TIME: 11:15 AM Nutrition Assessment: Recommended Malnutrition Diagnosis: Mild Protein-Calorie Malnutrition (05/26/20 1142 : Molly Vázquez) Estimated kilocalorie needs: 2040 Calorie Calculation Method: HarmonySkyWireStRegulus [employer] (with activity factor)(1.2 AF) Estimated protein needs (grams): 89-118 Grams protein determined by: 1.5-2.0 g/kg Care Plan: Continue current diet Increase to goal as tolerated Enteral Nutrition Tube Feeding Formula Type: NPTV Peptide 1.5 Goal Rate (mL/hr x hours): [...] Tube Feeding;Diet Diet: per physician Enteral/Tube Feedings: NPTV Peptide 1.5 @ 55 ml/hr Interval History:Pt started on TF Loraine Agrican Peptide 1.5. Currently running at 40 ml/hr [...] May 29, 2020 TIME: 11:15 AM PAGER: [phone] [facility] ANES POSTPROC EVALon 020 ANES POSTPROC EVAL HNO ID: [id number] Author: Dennis Coulter Service: ? Author Type: Anesthesiologist Type: Anesthesia Postprocedure Evaluation Filed: 05/28/2020 12:32 PM Note Text: POST ANESTHESIA EVALUATION NOTE : 1980 Procedure Summary Date: 05/28/20 Room / Location: SP OR02 / SP OR Anesthesia Start: 1109 [...] May 28, 2020 TIME: 12:32 PM CSN: [id number] [facility] ANES PRE-OPon 05-28-2020 ANES PRE-OP HNO ID: [id number] Author: Dennis Coulter Service: ? Author Type: [...] Goal r (more content not included)... Normal [facility] Basic Metabolic Panlon 05-28 Anion gap [Moles/Vol] 7 mmol/L Normal 0-15 [facility] Calcium [Mass/Vol] 9.1 mg/dL Normal 8.5-10.2 [facility] Chloride [Moles/Vol] 106 mmol/L High 97-105 [facility] CO2 [Moles/Vol] 29 mmol/L Normal 22-30 [facility] Creatinine [Mass/Vol] 0.68 mg/dL Normal 0.58-0.96 [facility] eGFR- Amer. >60 Normal [facility] eGFR-All Other Races >60 Normal [facility] Comment on above: Result Comment: eGFR (Estimated GFR) Units of measure: mL/min/1.73 meters squared eGFR is derived from the reexpressed MDRD Study equation using the following parameters: serum creatinine, age, gender and race. The creatinine assay has been calibrated to be traceable to [employer]. An eGFR <60 mL/min/1.73m2 for >3 months is consistent with chronic kidney disease. Refer to KDOQI guidelines for clinical interpretation. In patients with unstable renal function, e.g. those with acute kidney injury, the eGFR may not accurately reflect actual GFR. Glucose [Mass/Vol] 86 mg/dL Normal 74-99 [facility] Potassium [Moles/Vol] 3.4 mmol/L Low 3.7-5.1 [facility] Sodium [Moles/Vol] 142 mmol/L Normal 136-144 [facility] Urea nitrogen [Mass/Vol] 6 mg/dL Low 7-21 [facility] CBC and Differentialon 05-28 Abs Baso 0.03 k/uL Normal <0.11 [facility] Abs Nash 0.26 k/uL Normal <0.87 [facility] Abs Neut 2.02 k/uL Normal 1.45-7.50 [facility] Absolute nRBC <0.01 Normal <0.01 [facility] Basophils/100 WBC (Bld) 0.9 % Normal [facility] DTYPE Auto Diff Normal [facility] Eosinophils (Bld) [#/Vol] 0.06 10*3/uL Normal <0.46 [facility] Eosinophils/100 WBC (Bld) 1.8 % Normal [facility] Erythrocyte distribution width (RBC) [Ratio] 13.4 % Normal 11.5-15.0 [facility] Hematocrit (Bld) [Volume fraction] 26.2 % Low 36.0-46.0 [facility] Hemoglobin (Bld) [Mass/Vol] 8.2 g/dL Low 11.5-15.5 [facility] Lymphocytes (Bld) [#/Vol] 0.97 10*3/uL Low 1.00-4.00 [facility] Lymphocytes/100 WBC (Bld) 29.0 % Normal [facility] MCH 27.8 pG Normal 26.0-34.0 [facility] MCHC (RBC) [Mass/Vol] 31.3 g/dL Normal 30.5-36.0 [facility] MCV (RBC) [Entitic vol] 88.8 fL Normal 80.0-100.0 [facility] Monocytes/100 WBC (Bld) 7.8 % Normal [facility] Neutrophils/100 WBC (Bld) 60.5 % Normal [facility] NRBCs 0.0 /100 WBC Normal 0 [facility] Platelet mean volume (Bld) [Entitic vol] 10.7 fL Normal 9.0-12.7 [facility] Platelets (Bld) [#/Vol] 157 10*3/uL Normal 150-400 [facility] RBC (Bld) [#/Vol] 2.95 10*6/uL Low 3.90-5.20 [facility] WBC (Bld) [#/Vol] 3.34 10*3/uL Low 3.70-11.00 [facility] NURSING PROGon 05-28-2020 NURSING PROG HNO ID: [id number] Author: Leander VasquezRn) LAURYN Shaver Service: ? Author Type: Registered Nurse Type: Nursing Progress Note Filed: 05/29/2020 8:02 AM Note Text: Nursing Progress Note Patient Name: Maricarmen Anderson Patient Location: [place]/ [place] Daily Note: 1929 Report received from LAURYN Ho and barry and care of pt assumed 1944 Safety check performed 2117 Pt assessment completed and pt medicated appropriately 199 Pt is asleep with no signs of distress at this time. Call bagley in reach 729 Report given to LAURYN Mcdonough/Radu This note was completed by: Leander Shaver RN Normal [facility] NURSING PROG HNO ID: [id number] Author: Albania VasquezRnNorth King RN Service: ? Author Type: Registered Nurse Type: Nursing Progress Note Filed: 05/28/2020 12:43 PM Note Text: Nursing Progress Note Patient Name: Maricarmen Anderson Patient Location: SP SURGERY CTR POOL/SP SURG CTR PO* Daily Note: Verbal order from Dr. Gold for fentanyl and zofran IV for patient's pain and nausea. This note was completed by: ALBANIA King RN [facility] NURSING PROG HNO ID: [id number] Author: Georgia (Rn) LAURYN Mcnair Service: Nursing Author Type: Registered Nurse Type: Nursing Progress Note Filed: 05/28/2020 5:11 PM Note Text: Nursing Progress Note Patient Name: Maricarmen Anderson Patient Location: [facility]/ MI-2 Daily Note: 07 Report received from LAURYN Goodrich. Care assumed. Patient safety maintained via bedside shift report. Ambu-bag and suction equipment at bedside. Bed plugged in. Safety checks completed. 0924 Patient assessment completed and documented. 1000 Patient off unit for procedure. 1300 Patient returned to unit. 1345 Tube feed initiated at 20cc/hr per order. 1400 Med list given to surgery for PTAs. This note was completed by: Georgia Mcnair RN [facility] CBC and Differentialon 05-27 Abs Baso <0.03 Normal <0.11 [facility] Abs Nash 0.29 k/uL Normal <0.87 [facility] Abs Neut 2.00 k/uL Normal 1.45-7.50 [facility] Absolute nRBC <0.01 Normal <0.01 [facility] Basophils/100 WBC (Bld) 0.3 % Normal [facility] DTYPE Auto Diff Normal [facility] Eosinophils (Bld) [#/Vol] 0.08 10*3/uL Normal <0.46 [facility] Eosinophils/100 WBC (Bld) 2.2 % Normal [facility] Erythrocyte distribution width (RBC) [Ratio] 13.6 % Normal 11.5-15.0 [facility] Hematocrit (Bld) [Volume fraction] 25.7 % Low 36.0-46.0 [facility] Hemoglobin (Bld) [Mass/Vol] 8.0 g/dL Low 11.5-15.5 [facility] Lymphocytes (Bld) [#/Vol] 1.34 10*3/uL Normal 1.00-4.00 [facility] Lymphocytes/100 WBC (Bld) 36.0 % Normal [facility] MCH 27.9 pG Normal 26.0-34.0 [facility] MCHC (RBC) [Mass/Vol] 31.1 g/dL Normal 30.5-36.0 [facility] MCV (RBC) [Entitic vol] 89.5 fL Normal 80.0-100.0 [facility] Monocytes/100 WBC (Bld) 7.8 % Normal [facility] Neutrophils/100 WBC (Bld) 53.7 % Normal [facility] NRBCs 0.0 /100 WBC Normal 0 [facility] Platelet mean volume (Bld) [Entitic vol] 10.6 fL Normal 9.0-12.7 [facility] Platelets (Bld) [#/Vol] 150 10*3/uL Normal 150-400 [facility] RBC (Bld) [#/Vol] 2.87 10*6/uL Low 3.90-5.20 [facility] WBC (Bld) [#/Vol] 3.72 10*3/uL Normal 3.70-11.00 [facility] [address] KIDNEY WO/W IVCONon 05-27 CT KIDNEY WO/W IVCON * * *Final Report* * * DATE OF EXAM: May 27 2020 12:32PM [facility] [place] - CT KIDNEY WO/W IVCON / [...] hypoventilatory changes in the dependent lung bases. Campus Recruiting Coordinator (topogram) images: No additional findings. IMPRESSION: Hypodense [...] on May 27 2020 1:14PM EST [id number] [facility] Metabolic Panelon 05-27 Albumin [Mass/Vol] 3.4 g/dL Low 3.5-5.0 [facility] ALP [Catalytic activity/Vol] 73 U/L Normal 34-123 [facility] ALT [Catalytic activity/Vol] U/L Low 7-38 [facility] Anion gap [Moles/Vol] 12 mmol/L Normal 0-15 [facility] AST [Catalytic activity/Vol] 15 U/L Normal 13-35 [facility] Bilirubin [Mass/Vol] 0.3 mg/dL Normal 0.2-1.3 [facility] Calcium [Mass/Vol] 8.8 mg/dL Normal 8.5-10.2 [facility] Chloride [Moles/Vol] 106 mmol/L High 97-105 [facility] CO2 [Moles/Vol] 24 mmol/L Normal 22-30 [facility] Creatinine [Mass/Vol] 0.70 mg/dL Normal 0.58-0.96 [facility] eGFR- Amer. >60 Normal [facility] eGFR-All Other Races >60 Normal [facility] Comment on above: Result Comment: eGFR (Estimated [...] GFR. Glucose [Mass/Vol] 99 mg/dL Normal 74-99 [facility] Potassium [Moles/Vol] 3.6 mmol/L Low 3.7-5.1 [facility] Protein [Mass/Vol] 5.7 g/dL Low 6.3-8.0 [facility] Sodium [Moles/Vol] 142 mmol/L Normal 136-144 [facility] Urea nitrogen [Mass/Vol] 5 mg/dL Low 7-21 [facility] NURSING PROGon 05-27-2020 NURSING PROG HNO ID: [id number] Author: Tacho VasquezRn) LAURYN Marr Service: ? Author Type: Registered Nurse [...] chart. 2116 Ordered medications given, see eMAR. 2146 Paged general surgery: 721-2, r- Patient has loraine farms peptide 1.5 ordered, this is not supplied at [facility]. Loraine farms 1.0 is at bedside, is this okay to use in place? Please advise. Thanks, Kp @ [phone] Tube feed held per orders for EGD, 05/28. This note was completed by: Tacho Marr RN [facility] NURSING PROG HNO ID: [id number] Author: Bibi VasquezRn) LAURYN [facility] Service: Nursing Author Type: Registered Nurse Type: Nursing Progress Note Filed: 05/27/2020 7:25 PM Note Text: Nursing Progress Note Patient Name: Maricarmen Anderson Patient Location: / Daily Note:0724am updates from shift supervisor rn nurse. Iv fluids at 50ml/hr per pt's [...] surgery changed pt's tube feed to Loraine Wozityou peptide 1.5. will arrive from dietary. 1925pm updates to shift supervisor rn nurse. This note was completed by: Bibi [facility], RN Normal [facility] CBC and Differentialon 05-26 Abs Baso <0.03 Normal <0.11 [facility] Abs Nash 0.32 k/uL Normal <0.87 [facility] Abs Neut 1.63 k/uL Normal 1.45-7.50 [facility] Absolute nRBC <0.01 Normal <0.01 [facility] Basophils/100 WBC (Bld) 0.5 % Normal [facility] DTYPE Auto Diff Normal [facility] Eosinophils (Bld) [#/Vol] 0.07 10*3/uL Normal <0.46 [facility] Eosinophils/100 WBC (Bld) 1.8 % Normal [facility] Erythrocyte distribution width (RBC) [Ratio] 13.6 % Normal 11.5-15.0 [facility] Hematocrit (Bld) [Volume fraction] 27.2 % Low 36.0-46.0 [facility] Hemoglobin (Bld) [Mass/Vol] 8.5 g/dL Low 11.5-15.5 [facility] Lymphocytes (Bld) [#/Vol] 1.85 10*3/uL Normal 1.00-4.00 [facility] Lymphocytes/100 WBC (Bld) 47.4 % Normal [facility] MCH 27.7 pG Normal 26.0-34.0 [facility] MCHC (RBC) [Mass/Vol] 31.3 g/dL Normal 30.5-36.0 [facility] MCV (RBC) [Entitic vol] 88.6 fL Normal 80.0-100.0 [facility] Monocytes/100 WBC (Bld) 8.2 % Normal [facility] Neutrophils/100 WBC (Bld) 42.1 % Normal [facility] NRBCs 0.0 /100 WBC Normal 0 [facility] Platelet mean volume (Bld) [Entitic vol] 10.4 fL Normal 9.0-12.7 [facility] Platelets (Bld) [#/Vol] 150 10*3/uL Normal 150-400 [facility] RBC (Bld) [#/Vol] 3.07 10*6/uL Low 3.90-5.20 [facility] WBC (Bld) [#/Vol] 3.90 10*3/uL Normal 3.70-11.00 [facility] CONSULT PROGon 05-26-2020 CONSULT PROG HNO ID: [id number] Author: Raleigh Srivastava DO Service: General Surgery [...] DO Pager: DATE: 05/26/2020 TIME: 5:50 AM [facility] CT ABD/PEL W IVCONon 020 CT ABD/PEL W IVCON * * *Final Report* * * DATE OF EXAM: May 26 2020 12:43PM [facility] [place] 0530 - CT ABD/PEL W IVCON / [...] atelectasis. Partially visualized electrodes in the heart. Campus Recruiting Coordinator (topogram) images: No additional findings. IMPRESSION: No [...] be communicated with the ordering provider via [employer] staff message by Imaging Support Services within 2 business days of report finalization. Algorithms for management of incidental imaging findings can be found on the [facility] Intranet Sharepoint site at: [email or web address] [email or web address] Transcribed Using Voice Recognition Transcribe Date/Time: May 26 2020 12:59P Dictated by: ANIKET SIERRA MD This examination was interpreted and the report reviewed and electronically signed by: ANIKET SIERRA MD on May 26 2020 1:24PM EST [id number] ACTIONABLE Invalid Interpretation Code [facility] Comp Metabolic Panelon 05-26 Albumin [Mass/Vol] 3.6 g/dL Normal 3.5-5.0 [facility] ALP [Catalytic activity/Vol] 79 U/L Normal 34-123 [facility] ALT [Catalytic activity/Vol] 6 U/L Low 7-38 [facility] Anion gap [Moles/Vol] 8 mmol/L Normal 0-15 [facility] AST [Catalytic activity/Vol] 13 U/L Normal 13-35 [facility] Bilirubin [Mass/Vol] 0.4 mg/dL Normal 0.2-1.3 [facility] Calcium [Mass/Vol] 9.0 mg/dL Normal 8.5-10.2 [facility] Chloride [Moles/Vol] 106 mmol/L High 97-105 [facility] CO2 [Moles/Vol] 28 mmol/L Normal 22-30 [facility] Creatinine [Mass/Vol] 0.68 mg/dL Normal 0.58-0.96 [facility] eGFR- Amer. >60 Normal [facility] eGFR-All Other Races >60 Normal [facility] Comment on above: Result Comment: eGFR (Estimated [...] GFR. Glucose [Mass/Vol] 98 mg/dL Normal 74-99 [facility] Potassium [Moles/Vol] 3.5 mmol/L Low 3.7-5.1 [facility] Protein [Mass/Vol] 6.1 g/dL Low 6.3-8.0 [facility] Sodium [Moles/Vol] 142 mmol/L Normal 136-144 [facility] Urea nitrogen [Mass/Vol] 8 mg/dL Normal 7-21 [facility] Coronavirus 2019on 0 SARS-CoV-2 (COVID-19) RNA CRISTINA+probe Ql (Unsp spec) Nasopharyngeal Swab Normal [facility] Comment on above: Performed By: #### C OVID ####[address] [phone] SARS-CoV-2 (COVID-19) RNA CRISTINA+probe Ql (Unsp spec) Negative Normal Negative for COVID19 (SARS CoV2) by PCR. [facility] Comment on above: Result Comment: This test was developed and its performance characteristics determined by [facility]'s Doug Mc[facility] [place]. This test has been authorized by FDA under an Emergency Use Authorization (EUA). This test has been validated in accordance with the FDA's Guidance Document Policy for Diagnostics Testing in Laboratories Certified to Perform High Complexity Testing under CLIA prior to Emergency use Authorization for Coronavirus Disease 2019 during the Public Health Emergency issued on August 20, 2019. Performed By: #### C OVID ####[id number] [place], [place] [phone] Folate, Serumon 05-26-2020 Folate [Mass/Vol] 5.7 ng/mL Normal >4.7 [facility] Comment on above: Performed By: #### P THI, VITD, B1WB ####[id number] [place], [place] [phone] Hemoglobin A1con 05-26-2020 Glucose [Mass/Vol] 114 mg/dL Normal [facility] Comment on above: Result Comment: eAG: (Estimated average glucose) is a calculated value from HgbA1c and is resources representative of the average blood glucose level in the last 2-3 month period. Performed By: #### P REALB, TRANSF #### [facility] [address] [place], [place] [address] HbA1c (Bld) [Mass fraction] 5.6 % Normal 4.3-5.6 [facility] Comment on above: Result Comment: Amer ican Diabetes Association guidelines indicate that patients with HgbA1c in the range 5.7-6.4% are at increased risk for development of diabetes, and intervention by lifestyle modification may be beneficial. HgbA1c greater or equal to 6.5% is considered diagnostic of diabetes. Performed By: #### P REALB, TRANSF #### [facility] [employer] [address] [address] Iron and TIBCon 05-26-2020 Iron [Mass/Vol] 20 ug/dL Low 41-186 [facility] Comment on above: Performed By: #### P THI, VITD, B1WB ####[facility] [address] [place], [place] [phone] TIBC 341 ug/dL Normal 210-415 [facility] Comment on above: Performed By: #### P THI, VITD, B1WB ####[facility] [place], [place] [phone] Transferrin Saturatn 6 % Low 11-46 [facility] Comment on above: Performed By: #### P THI, VITD, B1WB ####[facility] [place], [place] [phone] Lipaseon 05-26-2020 Lipase [Catalytic activity/Vol] 112 U/L High 16-61 [facility] Lipid Panel, Basicon 020 Cholesterol [Mass/Vol] 188 mg/dL Normal <200 [facility] Comment on above: Result Comment: <200 mg/dL, Desirable 200-239 mg/dL, Borderline high >239 mg/dL, High Performed By: #### P THI, VITD, B1WB ####[facility], [place] [phone] Cholesterol in HDL [Mass/Vol] 57 mg/dL Normal >39 [facility] Comment on above: Result Comment: 40-5 9 mg/dL, Acceptable >59 mg/dL, High: Negative risk factor for coronary heart disease <40 mg/dL, Low: Positive risk factor for coronary heart disease Performed By: #### P THI, VITD, B1WB ####[facility], [place] [phone] Cholesterol in LDL [Mass/Vol] 113 mg/dL High <100 [facility] Comment on above: Result Comment: <100 mg/dL, Optimal 100-129 mg/dL, Near optimal/above optimal 130-159 mg/dL, Borderline high 160-189 mg/dL, High >189 mg/dL, Very high Secondary prevention optimal LDL Cholesterol levels are recommended to be < 70 mg/dL Performed By: #### P THI, VITD, B1WB ####[facility], [place] [phone] Fasting Time Blood Normal [facility] Comment on above: Performed By: #### P THI, VITD, B1WB ####[facility] [place], [place] [phone] LDL:HDL Ratio 1.98 Normal <2.54 [facility] Comment on above: Result Comment: Refe rence: 1. National Cholesterol Education Program ATP III Guideline At-A-Glance Quick Desk Reference: National Heart, Lung, and Blood [place]. National Institutes of Health. 2001: NIH Publication No. 01-3305. 2. An International Atherosclerosis Society position paper: global recommendations for the management of dyslipidemia: executive summary, Atherosclerosis. 2014: 232(2):410-413. Performed By: #### P THI, VITD, B1WB ####[address] [place], [place] [phone] Non HDL Cholesterol 131 mg/dL High <130 [facility] Comment on above: Performed By: #### P THI, VITD, B1WB ####[facility] [place], [place] [phone] TC:HDL Ratio 3.30 Normal <5.10 [facility] Comment on above: Performed By: #### P THI, VITD, B1WB ####[facility] [place], [place] [phone] Triglyceride [Mass/Vol] 88 mg/dL Normal <150 [facility] Comment on above: Result Comment: <150 mg/dL, Normal 150-199 mg/dL, Borderline high 200-499 mg/dL, High >499 mg/dL, Very high Performed By: #### P THI, VITD, B1WB ####[id number] [place], [place] [phone] VLDL Cholesterol 18 mg/dL Normal <30 [facility] Comment on above: Performed By: #### P THI, VITD, B1WB ####[facility] [place], [place] [phone] Magnesiumon 05-26-2020 Magnesium [Mass/Vol] 2.0 mg/dL Normal 1.7-2.6 [facility] NURSING PROGon 05-26-2020 NURSING PROG HNO ID: [id number] Author: Tacho (Rn) LAURYN Marr Service: ? Author Type: Registered Nurse Type: Nursing Progress Note Filed: 05/27/2020 4:29 AM Note Text: Nursing Progress Note Patient Name: Maricarmen Anderson Patient Location: MI72/ MI1-2 Daily Note: 1935 Assumed care of patient, received report. Assessment complete, see NPR. 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 Thanks, Kp @ [phone] IV fluids reduced to 75 ml/hr will monitor how patient tolerates and notify LIP in AM. 0000 IVF reduced to 50 ml/hr per patient request. 0245 Tube feeding restarted at 10 ml/hr start rate, pt previously was not tolerating feeding. 0400 Pt observed asleep in bed, NAD, IVF and tube feed running. This note was completed by: Tacho Marr RN [facility] NURSING PROG HNO ID: [id number] Author: Bibi VasquezRn) LAURYN [facility] Service: Nursing Author Type: Registered Nurse Type: Nursing Progress Note Filed: 05/26/2020 7:34 PM Note Text: Nursing Progress Note Patient Name: Maricarmen Anderson Patient Location: [facility] [place]/ [place] Daily Note:0800am report from shift supervisor rn nurse. Pt awake resting in bed. 0955am dietican rounding at bedside. Tf on hold for ct of abd/pelvis. 1140am dr. eng has rounded per pt. 1150am covid sent as ordered 1325pm pt delcines on starting tube feeding until ct results available. 1603pm pt awake resting in bed. All blood work collected and sent to lab as ordered. 1934pm report to shift supervisor rn nurse. This note was completed by: Bibi [facility] RN [facility] NURSING PROG HNO ID: [id number] Author: Rosibel VasquezRn) LAURYN Bonilla Service: Nursing Author Type: Registered Nurse Type: Nursing Progress Note Filed: 05/26/2020 4:08 AM Note Text: Nursing Progress Note Patient Name: Maricarmen Anderson Patient Location: [place]/ [place]-721-2 Daily Note: 2226 Nutren 1.5 hung at 20 ml/hr. 0000 Pt states she cannot tolerate tube feed. She is nauseous. Notified academic vice president. OK to hold TF for now. This note was completed by: Rosibel Bonilla RN [facility] NUTRITIONon 05-26-2020 NUTRITION HNO ID: [id number] Author: Molly Tello) Gurpreet Service: Nutrition Therapy [...] Estimated kilocalorie needs: 2040 Calorie Calculation Method: Harmony-. Gab (with activity factor)(1.2 AF) Estimated protein [...] nausea and vomiting. She is from the [facility]. She did call her surgeon's service and advised her to come to [facility] to be evaluated. Patient does have a J-tube. She is able to flush her J-tube. However, the patient then vomits. She vomits after oral or J-tube feedings. Again, the patient does not have a stomach. She denies blood in the vomit. It is nonbilious. The patient is on Percocet at home. Describes a traumatic brain injury in January and was seen in the [facility]. She is now on prophylactic seizure medications [...] Assess/15 min 4 units SIGNATURE: Molly Vázquez, MS,RD,LD,[facility] PATIENT NAME: Maricarmen Anderson DATE: May 26, 2020 TIME: 11:53 AM PAGER: [phone] Normal [facility] PTH, Intacton 05-26-2020 PTH, Intact 127 pg/mL High 15- [facility] Comment on above: Performed By: #### P THI, VITD, B1WB ####[facility] [place], [place] [phone] TSHon 05-26-2020 TSH Qn 1.040 m[IU]/L Normal 0.270-4.200 [facility] Comment on above: Result Comment: [...] Leone, et al. 2017 Guidelines of the [place] Thyroid Association for the Diagnosis and Management of Thyroid Disease during and the . Thyroid, 2017:27:3:315-389. Performed By: #### P THI, VITD, B1WB ####[id number] [place], [place] [phone] Vitamin B1, Whole Blon 05-26 Vitamin B1 (TDP), WB 56.6 nmol/L Low 84.0-213.0 [facility] Comment on above: Result Comment: This assay measures the concentration of thiamine diphosphate (TDP), the primary active form of vitamin B1. Approximately 90 percent of vitamin B1 present in whole blood is TDP. Thiamine and thiamine monophosphate, which comprise the remaining 10 percent, are not measured. This test was developed and its performance characteristics determined by [facility]'s [facility] Pathology and Laboratory Medicine [place] ( [facility]). It has not been cleared or approved by the FDA. [facility] is regulated under CLIA as qualified to perform high complexity testing. This test is used for clinical purposes. It should not be regarded as investigational or for research. Performed By: #### P THI, VITD, B1WB ####[address] [phone] Vitamin B12on 05-26-2020 Cobalamin (Vitamin B12) [Mass/Vol] 247 pg/mL Normal 232-1245 [facility] Comment on above: Performed By: #### P THI, VITD, B1WB ####[address] [phone] Vitamin D 25 Hydroxyon 05-26 Vitamin D 25 Hydroxy 9.6 ng/mL Low 31.0-80.0 [facility] Comment on above: Result Comment: Clas sification of 25 OH Vitamin D status: Insufficiency/Moderate Deficiency: < or = 30 ng/mL Sufficiency/Optimal Levels: 31 to 80 ng/mL Toxicity: > 100 ng/mL Test performed by chemiluminescent immunoassay. Performed By: #### P THI, VITD, B1WB ####[address] [phone] CBC and Differentialon 05-25 Abs Baso 0.03 k/uL Normal <0.11 [facility] Abs Nash 0.28 k/uL Normal <0.87 [facility] Abs Neut 2.58 k/uL Normal 1.45-7.50 [facility] Absolute nRBC <0.01 Normal <0.01 [facility] Basophils/100 WBC (Bld) 0.7 % Normal [facility] DTYPE Auto Diff Normal [facility] Eosinophils (Bld) [#/Vol] 0.04 10*3/uL Normal <0.46 [facility] Eosinophils/100 WBC (Bld) 1.0 % Normal [facility] Erythrocyte distribution width (RBC) [Ratio] 13.4 % Normal 11.5-15.0 [facility] Hematocrit (Bld) [Volume fraction] 26.8 % Low 36.0-46.0 [facility] Hemoglobin (Bld) [Mass/Vol] 8.6 g/dL Low 11.5-15.5 [facility] Lymphocytes (Bld) [#/Vol] 1.08 10*3/uL Normal 1.00-4.00 [facility] Lymphocytes/100 WBC (Bld) 26.9 % Normal [facility] MCH 27.7 pG Normal 26.0-34.0 [facility] MCHC (RBC) [Mass/Vol] 32.1 g/dL Normal 30.5-36.0 [facility] MCV (RBC) [Entitic vol] 86.2 fL Normal 80.0-100.0 [facility] Monocytes/100 WBC (Bld) 7.0 % Normal [facility] Neutrophils/100 WBC (Bld) 64.4 % Normal [facility] NRBCs 0.0 /100 WBC Normal 0 [facility] Platelet mean volume (Bld) [Entitic vol] 10.4 fL Normal 9.0-12.7 [facility] Platelets (Bld) [#/Vol] 170 10*3/uL Normal 150-400 [facility] RBC (Bld) [#/Vol] 3.11 10*6/uL Low 3.90-5.20 [facility] WBC (Bld) [#/Vol] 4.02 10*3/uL Normal 3.70-11.00 [facility] CC Profile Ulises SP,MM,EUC For SPT,MMH,EUC use onlyon 05-25-2020 [place] Test Venous Normal [facility] Attempts 1 Normal [facility] Base Excess 3 mmol/L Normal [facility] Comment on above: Result Comment: -2 T O 2 Body temperature 98.6 [degF] Normal [facility] Calcium [Moles/Vol] 1.20 mmol/L Normal 1.09-1.30 [facility] Chloride [Moles/Vol] 108 mmol/L Normal 50-400 [facility] Device None seen Normal [facility] Drawsite Venous Normal [facility] HCO3 (Bld) [Moles/Vol] 28 mmol/L High 22-26 [facility] Hemoglobin (Bld) [Mass/Vol] 8.6 g/dL Low 12-18 [facility] Lactate [Moles/Vol] 1.3 mmol/L Normal 0.7-2.5 [facility] pCO2 46 mm Hg Normal 41-51 [facility] pH (Bld) 7.40 [pH] Normal 7.32-7.42 [facility] pO2 BELOW REPORTABLE RANGE Normal 35-42 [facility] Potassium [Moles/Vol] 3.3 mmol/L Low 3.5-5.1 [facility] Sodium [Moles/Vol] 143 mmol/L Normal 136-146 [facility] CONSULTon 05-25-2020 CONSULT HNO ID: [id number] Author: Raleigh Srivastava DO Service: General Surgery [...] had a recent traumatic brain injury in [facility] and is on seizure medications now. PAST MEDICAL HISTORY: PAST MEDICAL HISTORY Diagnosis Date - Acute venous embolism and thrombosis of brachial vein ([facility]) 2013 due to IV infiltrate, 2013, also on OCPs - Eosinophilic esophagitis - Gastroparesis - GERD (gastroesophageal reflux disease) - History of gastric bypass complications - Obesity, Class III, BMI 40-49.9 (morbid obesity) ([facility]) - Port-A-Cath in place patients right [...] or palpitations GI: See HPI : Negative CAN DOFFER: Negative for abnormal vaginal bleeding, abnormal vaginal [...] CTA b/l, (more content not included)... Normal [facility] Comp Metabolic Panelon 05-25 Albumin [Mass/Vol] 3.8 g/dL Normal 3.5-5.0 [facility] ALP [Catalytic activity/Vol] 82 U/L Normal 34-123 [facility] ALT [Catalytic activity/Vol] 6 U/L Low 7-38 [facility] Anion gap [Moles/Vol] 10 mmol/L Normal 0-15 [facility] AST [Catalytic activity/Vol] 14 U/L Normal 13-35 [facility] Bilirubin [Mass/Vol] 0.3 mg/dL Normal 0.2-1.3 [facility] Calcium [Mass/Vol] 8.9 mg/dL Normal 8.5-10.2 [facility] Chloride [Moles/Vol] 107 mmol/L High 97-105 [facility] CO2 [Moles/Vol] 26 mmol/L Normal 22-30 [facility] Creatinine [Mass/Vol] 0.62 mg/dL Normal 0.58-0.96 [facility] eGFR- Amer. >60 Normal [facility] eGFR-All Other Races >60 Normal [facility] Comment on above: Result Comment: eGFR (Estimated [...] GFR. Glucose [Mass/Vol] 88 mg/dL Normal 74-99 [facility] Potassium [Moles/Vol] 3.3 mmol/L Low 3.7-5.1 [facility] Protein [Mass/Vol] 6.4 g/dL Normal 6.3-8.0 [facility] Sodium [Moles/Vol] 143 mmol/L Normal 136-144 [facility] Urea nitrogen [Mass/Vol] 10 mg/dL Normal 7-21 [facility] ED NOTEon 05-25-2020 ED NOTE HNO ID: [id number] Author: Chavo Maravilla RN Service: ? Author Type: Registered Nurse Type: ED Notes Filed: 05/25/2020 6:05 PM Note Text: Pt to the floor with caregiver, in stable condition, in NAD. Pt's infusion running without difficulty and pt belongings at bedside. [facility] ED NOTE HNO ID: [id number] Author: Chavo Maravilla RN Service: ? Author Type: Registered Nurse Type: ED Notes Filed: 05/25/2020 6:01 PM Note Text: Report given to Ceasar DIEGO, all questions addressed at this time. [facility] ED NOTE HNO ID: [id number] Author: Chavo Maravilla RN Service: ? Author Type: Registered Nurse Type: ED Notes Filed: 05/25/2020 3:27 PM Note Text: RT notified of CCVBG [facility] ED NOTE HNO ID: [id number] Author: Chavo Maravilla RN Service: ? Author [...] chest. Allergies reviewed and allergy band applied. [facility] ED NOTE HNO ID: [id number] Author: Marycarmen Coffey) LAURYN Hunt Service: ? Author Type: Registered Nurse Type: ED Notes Filed: 05/25/2020 1:50 PM Note Text: Pt given cup to collect urine specimen [facility] ED NOTE HNO ID: [id number] Author: Flaquita (Medic) Charis Service: General Internal Medicine Author Type: Assault Amphibious Vehicle Officer and Mercerizer Machine Operator Type: ED Notes Filed: 05/25/2020 1:43 PM Note Text: Pt states she sometimes has a rapid heart rate when she stands to walk. States she had a pacemaker placed in March 2020 at . EKG performed and given to Dr. Moreno [facility] ED NOTE HNO ID: [id number] Author: Marycarmen Coffey) LAURYN Hunt Service: ? Author Type: Registered Nurse Type: ED Notes Filed: 05/25/2020 12:43 PM Note Text: Pt c/o nausea, vomiting, ABD pain for the past 2 weeks. She has a J tube, and when ever she pours liquid into it, she vomits. Normal [facility] ED PROV NOTEon 05-25-2020 ED PROV NOTE HNO ID: [id number] Author: Dennis Spence DO Service: Emergency Medicine [...] nausea and vomiting. She is from the [facility]. She did call her surgeon's service and advised her to come to [facility] to be evaluated. Patient does have a J-tube. She is able to flush her J-tube. However, the patient then vomits. She vomits after oral or J-tube feedings. Again, the patient does not have a stomach. She denies blood in the vomit. It is nonbilious. The patient is on Percocet at home. Describes a traumatic brain injury in January and was seen in the [facility]. She is now on prophylactic seizure medications [...] venous embolism and thrombosis of brachial vein ([facility]) 2013 due to IV infiltrate, 2013, also on OCPs - Eosinophilic esophagitis - Gastroparesis - GERD (gastroesophageal reflux disease) - History of gastric bypass complications - Obesity, Class III, BMI 40-49.9 (morbid obesity) ([facility]) - Port-A-Cath in place patients right [...] CARE PROFILE-VE (more content not included)... Normal [facility] HOSPon 05-25-2020 HOSP Patient:Lea Anderson MRN: [...] to collect urine specimen Dennis Spence DO, 05/25/2020 5:22 PM Signed ED Provider Note Patient Name: Maricarmen Anderson SERVICE DATE: 05/25/20 History Patient presents with: Vomiting The patient is a 39-year-old female with a past medical history of gastroparesis status post gastrectomy, DVT, esophagitis, obesity, GERD, Port-A-Cath placement presents to the emergency department for evaluation of a 2-week history of nausea and vomiting. She is from the [facility]. She did call her surgeon's service and advised her to come to [facility] to be evaluated. Patient does have a J-tube. She is able to flush her J-tube. However, the patient then vomits. She vomits after oral or J-tube feedings. Again, the patient does not have a stomach. She denies blood in the vomit. It is nonbilious. The patient is on Percocet at home. Describes a traumatic brain injury in January and was seen in the [place] area. She is now on prophylactic seizure [...] thrombosis of (more content not included)... Normal [facility] Lipaseon 05-25-2020 Lipase [Catalytic activity/Vol] 54 U/L Normal 16-61 [facility] Magnesiumon 05-25-2020 Magnesium [Mass/Vol] 1.9 mg/dL Normal 1.7-2.6 [facility] NURSING PROGon 05-25-2020 NURSING PROG HNO ID: [id number] Author: Mitchel VasquezRn) Laron RN Service: Nursing Author Type: Registered Nurse Type: Nursing Progress Note Filed: 05/25/2020 6:27 PM Note Text: Nursing Progress Note Patient Name: Maricarmen Anderosn Patient Location: [place] [address] [address] [address] room [facility]. Pain reported in upper abdomen 03/31 at this time. Nausea also reported. Calling primary MD for admission orders. Patient has j-tube and uses osmolite when able. No other distress noted at this time. Patient denies SOB or CP. This note was completed by: Mitchel Larry RN [facility] NURSING PROG HNO ID: [id number] Author: Michelle VasquezRn) Leatha RN Service: Nursing Author Type: Registered Nurse Type: Nursing Progress Note Filed: 05/25/2020 7:14 PM Note Text: Nursing Progress Note Patient Name: Maricarmen Anderson Patient Location: [place] [address] [address] Transfer Note: Patient transferred into room/unit 721, bed 2 from ED in stable condition. Actions taken: No further actions taken at this time. Will continue to monitor and check with patient. 1912 Nursing admission database completed; HISTORIOGRAPHY PROFESSOR medication list updated. This note was completed by: Michelle Zhang, RN Normal [facility] Urinalysis with Microscopico n 05-25-2020 Bacteria 1+ /HPF Critically abnormal Negative [facility] Bilirubin, Urine Negative Normal Negative [facility] Cast SEE COMMENT Normal 0 [facility] Comment on above: Result Comment: 0 Clarity (U) Slightly Cloudy Critically abnormal Clear [facility] Color (U) Yellow Normal Yellow [facility] Crystals LM Nom (Urine sed) SEE COMMENT Critically abnormal Negative [facility] Comment on above: Result Comment: 3+ Calcium Oxalate Glucose Ql (U) Negative Normal Negative [facility] Hemoglobin/Blood,Ur Negative Normal Negative [facility] Ketones Ql (U) Trace Critically abnormal Negative [facility] Leukest Trace Critically abnormal Negative [facility] Nitrite Ql (U) Negative Normal Negative [facility] pH (U) 6.0 [pH] Normal 5.0-8.0 [facility] Protein, Urine Negative Normal Negative [facility] RBC 0-3 Normal 0-3 [facility] Specific [place], Ur 1.025 Normal 1.005-1.030 [facility] Urobilinogen Qn (U) 1.0 {José'U}/dL Normal 0.2-1.0 [facility] WBC 0-5 Normal 0-5 [facility] SLEEP CENTER REPORTon 2019 [place] [address] SLEEP STUDY REPORT PATIENT NAME: MARICARMEN ANDERSON : 1980 MED REC NO: [id number] ROOM: ACCOUNT NO: [id number] ADMIT DATE: 01/24/2020 PROVIDER: Roseline Decker SLEEP [...] Please correlate clinically. ROSELINE DECKER ND/V_TTNER_T Doc#: [id number] CC: Roseline Decker Normal [facility] Basic Metabolic [facility] Anion gap [Moles/Vol] 5 mmol/L Normal 0-15 [facility] Calcium [Mass/Vol] 9.2 mg/dL Normal 8.5-10.2 [facility] Chloride [Moles/Vol] 106 mmol/L High 97-105 [facility] CO2 [Moles/Vol] 26 mmol/L Normal 22-30 [facility] Creatinine [Mass/Vol] 0.81 mg/dL Normal 0.58-0.96 [facility] Glucose [Mass/Vol] 106 mg/dL High 74-99 [facility] Potassium [Moles/Vol] 3.8 mmol/L Normal 3.7-5.1 [facility] Sodium [Moles/Vol] 137 mmol/L Normal 136-144 [facility] Urea nitrogen [Mass/Vol] 9 mg/dL Normal - [facility] CASE MANAGEMon 01-02-2020 CASE MANAGEM HNO ID: [id number] Author: Anaid (Rn) LAURYN Valencia Service: ? Author Type: Registered Nurse [...] Physician Name/Phone: Dr. Sotelo Other Caregiver Name/Phone: [employer] TRANSPORTATION ARRANGEMENTS: Transportation Arrangements: Car ADDITIONAL CONTACT RESOURCES: None Patient surgically cleared for discharge and being discharged to home today on enteral tube feedings. [employer] updated and orders to resume tube feedings sent. SIGNATURE: Anaid Valencia RN PATIENT NAME: Maricarmen Anderson DATE: January 02, 2020 TIME: 1:14 PM PAGER/CONTACT #: [id number] Normal [facility] CNDSon 01-02-2020 CNDS HNO ID: [id number] Author: Clemente Eng Service: General Surgery Author [...] Out FOLLOW-UP APPOINTMENTS ALREADY SCHEDULED WITH A [facility] PROVIDER: No future appointments. ALLERGIES Allergen [...] discharge management of this patient. SIGNATURE: Maynor Manely DO PAGER/CONTACT #: DATE: January 02, 2020 TIME: 12:33 PM Normal [facility] NURSING PROGon 01-02-2020 NURSING PROG HNO ID: [id number] Author: Kimmie VasquezRn) LAURYN Galo Service: Nursing Author Type: Registered Nurse Type: Nursing Progress Note Filed: 01/02/2020 12:27 PM Note Text: Nursing Progress Note Patient Name: Maricarmen Anderson [id number] Daily Note: 07: received report from Silvia DIEGO. Assumed care [...] was completed by: Kimmie Galo RN Normal [facility] Basic Metabolic Panlon 12-31 Anion gap [Moles/Vol] 6 mmol/L Normal 0-15 [facility] Calcium [Mass/Vol] 9.0 mg/dL Normal 8.5-10.2 [facility] Chloride [Moles/Vol] 105 mmol/L Normal 97-105 [facility] CO2 [Moles/Vol] 26 mmol/L Normal 22-30 [facility] Creatinine [Mass/Vol] 0.73 mg/dL Normal 0.58-0.96 [facility] Glucose [Mass/Vol] 92 mg/dL Normal 74-99 [facility] Potassium [Moles/Vol] 3.7 mmol/L Normal 3.7-5.1 [facility] Sodium [Moles/Vol] 137 mmol/L Normal 136-144 [facility] Urea nitrogen [Mass/Vol] 8 mg/dL Normal 7-21 [facility] NURSING PROGon 01-01-2020 NURSING PROG HNO ID: [id number] Author: Silvia (Rn) LAURYN Marquez Service: ? Author Type: Registered Nurse Type: Nursing Progress Note Filed: 01/02/2020 3:03 AM Note Text: Nursing Progress Note Patient Name: Maricarmen Anderson Patient Location: /- Daily Note: 1906: Received report from Khalida, RN. Patient awake and resting in bed. Call [...] note was completed by: Silvia Marquez RN [facility] NURSING PROG HNO ID: [id number] Author: Khalida Coffey) LAURYN Mendes Service: Nursing Author Type: Registered Nurse Type: Nursing Progress Note Filed: 01/01/2020 7:23 PM Note Text: Nursing Progress Note Patient Name: Maricarmen Anderson [facility] Daily Note: 0736 Resumed care for the patient, received updates from Tiny DIEGO. 0745 Tube feed increased to 40 cc/hr. 0915 Assessment unchanged as charted. Safety maintained. 1400 Tube feed increased to 50 cc/hr, patient tolerating them well. 1919 Report given to Silvia DIEGO. This note was completed by: Khalida Mendes RN [facility] ALLIED HEALTHon 12-31-2019 ALLIED HEALTH HNO ID: [id number] Author: Uzair Hurst (Tech) Service: Radiology Author Type: Mercerizer Machine Operator Type: Allied Health Filed: 12/31/2019 12:47 AM [...] Hurst December 31, 2019 12:46 AM Normal [facility] Basic Metabolic Panlon 12-30 Anion gap [Moles/Vol] 8 mmol/L Normal 0-15 [facility] Calcium [Mass/Vol] 8.9 mg/dL Normal 8.5-10.2 [facility] Chloride [Moles/Vol] 105 mmol/L Normal 97-105 [facility] CO2 [Moles/Vol] 25 mmol/L Normal 22-30 [facility] Creatinine [Mass/Vol] 0.62 mg/dL Normal 0.58-0.96 [facility] eGFR- Amer. >60 Normal [facility] eGFR-All Other Races >60 Normal [facility] Comment on above: Result Comment: eGFR (Estimated [...] GFR. Glucose [Mass/Vol] 81 mg/dL Normal 74-99 [facility] Potassium [Moles/Vol] 3.6 mmol/L Low 3.7-5.1 [facility] Sodium [Moles/Vol] 138 mmol/L Normal 136-144 [facility] Urea nitrogen [Mass/Vol] 9 mg/dL Normal 7-21 [facility] CBCon 12-31-2019 Absolute nRBC <0.01 Normal <0.01 [facility] Erythrocyte distribution width (RBC) [Ratio] 13.2 % Normal 11.5-15.0 [facility] Hematocrit (Bld) [Volume fraction] 28.7 % Low 36.0-46.0 [facility] Hemoglobin (Bld) [Mass/Vol] 9.3 g/dL Low 11.5-15.5 [facility] MCH 29.9 pG Normal 26.0-34.0 [facility] MCHC (RBC) [Mass/Vol] 32.4 g/dL Normal 30.5-36.0 [facility] MCV (RBC) [Entitic vol] 92.3 fL Normal 80.0-100.0 [facility] Platelet mean volume (Bld) [Entitic vol] 10.7 fL Normal 9.0-12.7 [facility] Platelets (Bld) [#/Vol] 151 10*3/uL Normal 150-400 [facility] RBC (Bld) [#/Vol] 3.11 10*6/uL Low 3.90-5.20 [facility] WBC (Bld) [#/Vol] 5.08 10*3/uL Normal 3.70-11.00 [facility] CBC and Differentialon 12-30 Abs Baso 0.03 k/uL Normal <0.11 [facility] Abs Nash 0.49 k/uL Normal <0.87 [facility] Abs Neut 3.99 k/uL Normal 1.45-7.50 [facility] Absolute nRBC <0.01 Normal <0.01 [facility] Basophils/100 WBC (Bld) 0.5 % Normal [facility] DTYPE Auto Diff Normal [facility] Eosinophils (Bld) [#/Vol] 0.04 10*3/uL Normal <0.46 [facility] Eosinophils/100 WBC (Bld) 0.6 % Normal [facility] Erythrocyte distribution width (RBC) [Ratio] 13.1 % Normal 11.5-15.0 [facility] Hematocrit (Bld) [Volume fraction] 30.3 % Low 36.0-46.0 [facility] Hemoglobin (Bld) [Mass/Vol] 9.8 g/dL Low 11.5-15.5 [facility] Lymphocytes (Bld) [#/Vol] 1.70 10*3/uL Normal 1.00-4.00 [facility] Lymphocytes/100 WBC (Bld) 27.2 % Normal [facility] MCH 29.6 pG Normal 26.0-34.0 [facility] MCHC (RBC) [Mass/Vol] 32.3 g/dL Normal 30.5-36.0 [facility] MCV (RBC) [Entitic vol] 91.5 fL Normal 80.0-100.0 [facility] Monocytes/100 WBC (Bld) 7.8 % Normal [facility] Neutrophils/100 WBC (Bld) 63.9 % Normal [facility] NRBCs 0.0 /100 WBC Normal 0 [facility] Platelet mean volume (Bld) [Entitic vol] 11.0 fL Normal 9.0-12.7 [facility] Platelets (Bld) [#/Vol] 177 10*3/uL Normal 150-400 [facility] RBC (Bld) [#/Vol] 3.31 10*6/uL Low 3.90-5.20 [facility] WBC (Bld) [#/Vol] 6.26 10*3/uL Normal 3.70-11.[address] [facility] [address] ABD/PEL W IVCONon -11-[address] ABD/PEL W IVCON * * *Final Report* * * DATE OF EXAM: Dec 31 2019 12:49AM [facility] [place]30 - CT ABD/PEL W IVCON / [...] Dec 31 2019 1:31AM EST [id number] Normal [facility] Comp Metabolic Panelon 12-30 Albumin [Mass/Vol] 3.8 g/dL Normal 3.5-5.0 [facility] ALP [Catalytic activity/Vol] 70 U/L Normal 34-123 [facility] ALT [Catalytic activity/Vol] 9 U/L Normal 7-38 [facility] Anion gap [Moles/Vol] 7 mmol/L Normal 0-15 [facility] AST [Catalytic activity/Vol] 15 U/L Normal 13-35 [facility] Bilirubin [Mass/Vol] 0.3 mg/dL Normal 0.2-1.3 [facility] Calcium [Mass/Vol] 9.1 mg/dL Normal 8.5-10.2 [facility] Chloride [Moles/Vol] 105 mmol/L Normal 97-105 [facility] CO2 [Moles/Vol] 26 mmol/L Normal 22-30 [facility] Creatinine [Mass/Vol] 0.60 mg/dL Normal 0.58-0.96 [facility] eGFR- Amer. >60 Normal [facility] eGFR-All Other Races >60 Normal [facility] Comment on above: Result Comment: eGFR (Estimated [...] GFR. Glucose [Mass/Vol] 84 mg/dL Normal 74-99 [facility] Potassium [Moles/Vol] 3.4 mmol/L Low 3.7-5.1 [facility] Protein [Mass/Vol] 6.2 g/dL Low 6.3-8.0 [facility] Sodium [Moles/Vol] 138 mmol/L Normal 136-144 [facility] Urea nitrogen [Mass/Vol] 11 mg/dL Normal 7-21 [facility] Coronavirus 2019on 0 SARS-CoV-2 (COVID-19) RNA CRISTINA+probe Ql (Unsp spec) Nasopharyngeal Swab Normal [facility] Comment on above: Performed By: #### P REALB, TRANSF #### [facility] [employer] [address], [place] [address] SARS-CoV-2 (COVID-19) RNA CRISTINA+probe Ql (Unsp spec) Negative Normal Negative for COVID19 (SARS CoV2) by PCR. [facility] Comment on above: Result Comment: This test was developed and its performance characteristics determined by [facility]'s [facility] [place]. This test has been authorized by FDA [...] #### P REALB, TRANSF #### [facility] [employer] [address], [place] [address] ED NOTEon 12-31-2019 ED NOTE HNO ID: [id number] Author: Paul Coffey) LAURYN Culver Service: Emergency Medicine Author Type: Registered Nurse Type: ED Notes Filed: 12/31/2019 12:28 AM Note Text: Patient to CT and then stable for admission to 9th floor, report called to LAURYN Villaseñor. Patient transported with medic, stable at time of transfer from ED [facility] ED NOTE HNO ID: [id number] Author: Paul (Rn) LAURYN Culver Service: Emergency Medicine Author Type: Registered Nurse Type: ED Notes Filed: 12/30/2019 11:43 PM Note Text: Patient finished contrast, CT aware [facility] ED NOTE HNO ID: [id number] Author: Paul (Rn) LAURYN Culver Service: Emergency Medicine Author Type: Registered Nurse Type: ED Notes Filed: 12/30/2019 10:55 PM Note Text: Urine obtained and sent [facility] ED NOTE HNO ID: [id number] Author: Paul (Rn) LAURYN Culver Service: Emergency Medicine Author Type: Registered Nurse Type: ED Notes Filed: 12/30/2019 10:55 PM Note Text: Covid swab obtained, placed on ice and walked to lab by [facility] ED PROV NOTEon 12-31-2019 ED PROV NOTE HNO ID: [id number] Author: Milton Kate MD Service: Emergency Medicine [...] Obesity, Class III, BMI 40-49.9 (morbid obesity) ([facility]) - Port-A-Cath in place patients right [...] and written (more content not included)... 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 Normal [facility] Lipaseon 12-31-2019 Lipase [Catalytic activity/Vol] 33 U/L Normal 16-61 [facility] Magnesiumon 12-31-2019 Magnesium [Mass/Vol] 1.8 mg/dL Normal 1.7-2.6 [facility] NURSING PROGon 12-31-2019 NURSING PROG HNO ID: [id number] Author: Tiny (Rn) LAURYN Chamberlain Service: Nursing Author Type: Registered Nurse Type: Nursing Progress Note Filed: 01/01/2020 3:51 AM Note Text: Nursing Progress Note Patient Name: Maricarmen Anderson [facility] [address] [place] [address] 1919 Received report from prior RN. Patient is in the bed resting with no signs of distress. All personal possessions are within reach. Needs are met at this time. Bed is low and locked. Bed alarm is on. 1920 Requested phenergan from pharmacy. 0000 Tube feed increased to 30 ml/hr 0200 pt sleeping This note was completed by: Tiny Chamberlain RN [facility] NURSING PROG HNO ID: [id number] Author: Khalida VasquezRn) LAURYN Mendes Service: Nursing Author Type: Registered Nurse Type: Nursing Progress Note Filed: 12/31/2019 7:28 PM Note Text: Nursing Progress Note Patient Name: Maricarmen Anderson Patient Location: [place]/ [place]- Daily Note: 714 Received report from Sheyla DIEGO. 0850 Assessment completed as charted. Patient complains of nausea and pain. Call light within reach and bed in lowest position will continue to monitor. 1100 Diet advanced to full liquids. 1115 Tube feed started. 1730 Tube feed increased to 20 cc/hr. 1924 Report given to Tiny DIEGO. This note was completed by: Khalida Mendes RN [facility] NURSING PROG HNO ID: [id number] Author: Sheyla Martinez Service: ? Author Type: Registered Nurse Type: Nursing Progress Note Filed: 12/31/2019 5:17 AM Note Text: Nursing Progress Note Patient Name: Maricarmen Anderson Patient Location: [place]/ [place]- Transfer Note: Patient transferred into room/unit 906 in stable condition. Actions taken: No futher actions taken at this time. Will continue to monitor and check with patient. Patient belongings with patient This note was completed by: Sheyla Martinez RN [facility] NURSING PROG HNO ID: [id number] Author: Sehyla Martinez Service: ? Author Type: Registered Nurse Type: Nursing Progress Note Filed: 12/31/2019 5:16 AM Note Text: Nursing Progress Note Patient Name: Maricarmen Anderson Patient Location: [place]/ MI6-1 Daily Note: 0027 received report from ED, Paul, patient going to CT before coming to floor 0045 patient on floor 0048assessment complete, see NPR. Patient's belongings, call light are with in reach. Bed is locked and in lowest position. Patient in no distress at this time. This note was completed by: Sheyla Martinez RN [facility] NUTRITIONon 12-31-2019 NUTRITION HNO ID: [id number] Author: Molly Vázquez Service: Nutrition Therapy Author Type: Registered Dietitian Type: Nutrition Filed: 12/31/2019 11:54 AM Note Text: NUTRITION THERAPY INITIAL ASSESSMENT SERVICE DATE: 12/31/2019 SERVICE TIME: 11:52 AM Nutrition Assessment: Recommended Malnutrition Diagnosis: No Malnutrition Identified Nutrition Diagnosis: Problem: Suboptimal protein/energy intake Related to: Inability to consume sufficient nutrients As evidenced by: Patient/family self-report;Nausea;Vomiti ng Estimated kilocalorie needs: 4351-1280 Calorie Calculation Method: 15-20 kcals/kg Estimated protein needs (grams): 71-89 Grams protein determined by: 1.2-1.5 g/kg;[place] Body Weight Care Plan: Continue current diet [...] 12/31/19 and all reflect current status. HPI: aMricarmen Anderson is a 39 year old female [...] of Inflammation: Chronic condition SIGNATURE: Molly Vázquez, MS,RD,LD,[facility] PATIENT NAME: Maricarmen Anderson DATE: December 31, 2019 TIME: 11:51 AM PAGER: [phone] Normal [facility] Phosphoruson 12-31-2019 Phosphate [Mass/Vol] 3.7 mg/dL Normal 2.7-4.8 [facility] Prealbuminon 12-31-2019 Prealbumin [Mass/Vol] 20 mg/dL Normal 17-36 [facility] Comment on above: Performed By: #### P REALB, TRANSF #### [facility] [address] [id number] Transferrinon 12-31-2019 Transferrin [Mass/Vol] 266 mg/dL Normal 200-360 [facility] Comment on above: Performed By: #### P REALB, TRANSF #### [facility] [address] [place] [id number] Urinalysis with Microscopico n 12-31-2019 Amorphous Crystal 2+ Normal [facility] Bacteria 4+ /HPF Critically abnormal Negative [facility] Bilirubin, Urine Negative Normal Negative [facility] Cast SEE COMMENT Normal 0 [facility] Comment on above: Result Comment: 0 Clarity (U) Cloudy Critically abnormal Clear [facility] Color (U) Yellow Normal Yellow [facility] Epithelial cells LM Ql (Urine sed) SEE COMMENT Critically abnormal Occasional [facility] Comment on above: Result Comment: 4+ Squamous Epithelial Cells Glucose Ql (U) Negative Normal Negative [facility] Hemoglobin/Blood,Ur Negative Normal Negative [facility] Ketones Ql (U) Trace Critically abnormal Negative [facility] Leukest 2+ Critically abnormal Negative [facility] Nitrite Ql (U) Negative Normal Negative [facility] pH (U) 7.0 [pH] Normal 5.0-8.0 [facility] Protein, Urine Negative Normal Negative [facility] RBC 0-3 Normal 0-3 [facility] Specific [place], Ur 1.025 Normal 1.005-1.030 [facility] Urobilinogen Qn (U) 1.0 {Ojsé'U}/dL Normal 0.2-1.0 [facility] WBC 6-10 Critically abnormal 0-5 [facility] PROGRESSon 09-19-2019 PROGRESS HNO ID: [id number] Author: Emelia Baldwin Service: ? Author Type: [...] 6 hours as needed. OBJECTIVE: PHYSICAL EXAM: [facility] 05/18/2019 GENERAL APPEARANCE: Well nourished, well [...] SIGNATURE: Emelia Baldwin MD PATIENT NAME: Maricarmen Jacksonmuliz DATE: September 19, 2019 TIME: 1:00 PM PAGER: Emelia Baldwin MD [facility] 09-13-2019 [facility] Telephone (NSFRVW) ----- MARICARMEN ANDERSON ([id number]) 1980 [facility] Date Time Provider Department 09/13/19 EMELIA BALDWIN [employer] During your visit today, we recorded the following information about you: [facility] 09/13/2019 3:55 PM Signed Patient has been identified by name and date of : Yes Type of form: Nursing Home Disability Form received via: Fax When form is completed, fax form to fax number provided. 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 Allergies As of Date: 09/13/2019 Noted Allergy Reaction DILAUDID (HYDROMORPHONE (BULK)) 03/28/2019 9 - Itching Date Reviewed: 08/14/2019 Reviewed by: Saskia (Rn) LAURYN Sharpe - Fully Assessed Reason for Visit: alf disability [Other] Prescriptions as of 09/13/2019 Sig: [...] Encounter Status:Closed by YONG PADILLA on 09/16/19 [facility] 05-13-2019 ALLIED HEALTH HNO ID: [id number] Author: Uzair Angulo (Tech) Service: Radiology Author Type: Mercerizer Machine Operator Type: Allied Health Filed: 05/13/2019 10:22 AM [...] Bill King May 13, 2019 10:22 AM [facility] MRI CERVICAL SPINE WO IVCONo n 05-13-2019 MRI CERVICAL SPINE WO IVCON * * *Final Report* * * DATE OF EXAM: May 13 2019 10:50AM [facility] - [facility] CERVICAL SPINE WO [...] vertebrae with counting from the craniocervical junction. Parts Sales Manager: LISA Transcribe Date/Time: May 13 2019 12:52P Dictated by : JON OSBORNE MD This examination was interpreted and the report reviewed and electronically signed by: JON OSBORNE MD on May 13 2019 1:16PM EST [id number] Normal [facility] Vital Signs Date Time Vital Sign Value Performing Clinician Facility 11-17-2024 13:40-0400 Diastolic blood pressure 76 mm[Hg] Viktor Sotelo MD Work Phone: [facility] 11-17-2024 13:40-0400 Heart rate 84 /min Viktor Sotelo MD Work Phone: [facility] 11-17-2024 13:40-0400 Respiratory rate 16 /min Viktor Sotelo MD Work Phone: [facility] 11-17-2024 13:40-0400 SaO2% (BldA) [Mass fraction] 98 % Viktor Sotelo MD Work Phone: [facility] 11-17-2024 13:40-0400 Systolic blood pressure 120 mm[Hg] Viktor Sotelo MD Work Phone: [facility] 11-17-2024 12:55-0400 Body temperature 97.3 [degF] Viktor Sotelo MD Work Phone: [facility] 11-17-2024 12:55-0400 Inhaled oxygen flow rate 8 L/min Viktor Sotelo MD Work Phone: [facility] 11-17-2024 09:40-0400 Body height 167.64 cm Viktor Sotelo MD Work Phone: [facility] 11-17-2024 09:40-0400 Body weight 117.93 kg Viktor Sotelo MD Work Phone: [facility] 11-07-2024 15:00-0400 Body height 167.64 cm Viktor Sotelo MD Work Phone: [facility] 11-07-2024 15:00-0400 Body mass index (BMI) [Ratio] 41.9 kg/m2 Viktor Sotelo MD Work Phone: [facility] 11-07-2024 15:00-0400 Body temperature 97.5 [degF] Viktor Sotelo MD Work Phone: [facility] 11-07-2024 15:00-0400 Body weight 117.93 kg Viktor Sotelo MD Work Phone: [facility] 11-07-2024 15:00-0400 Diastolic blood pressure 72 mm[Hg] Viktor Sotelo MD Work Phone: [facility] 11-07-2024 15:00-0400 Heart rate 75 /min Viktor Sotelo MD Work Phone: [facility] 11-07-2024 15:00-0400 SaO2% (BldA) [Mass fraction] 99 % Viktor Sotelo MD Work Phone: [facility] 11-07-2024 15:00-0400 Systolic blood pressure 120 mm[Hg] Viktor Sotelo MD Work Phone: [facility] 06-10-2024 09:33-0500 Body height 167.64 cm Viktor Sotelo MD Work Phone: [facility] 06-10-2024 09:33-0500 Body mass index (BMI) [Ratio] 43.4 kg/m2 Viktor Sotelo MD Work Phone: [facility] 06-10-2024 09:33-0500 Body weight 122.01 kg Viktor Sotelo MD Work Phone: [facility] 06-10-2024 09:33-0500 Diastolic blood pressure 66 mm[Hg] Viktor Sotelo MD Work Phone: [facility] 06-10-2024 09:33-0500 Heart rate 93 /min Viktor Sotelo MD Work Phone: [facility] 06-10-2024 09:33-0500 Systolic blood pressure 93 mm[Hg] Viktor Sotelo MD Work Phone: [facility] 11-12-2023 13:23-0400 Body height 167.64 cm MD Viktor Sotelo Work Phone: [facility] 11-12-2023 13:23-0400 Body mass index (BMI) [Ratio] 41.1 kg/m2 MD Viktor Sotelo Work Phone: [facility] 11-12-2023 13:23-0400 Body weight 115.66 kg MD Viktor Sotelo Work Phone: [facility] 11-12-2023 13:23-0400 Diastolic blood pressure 73 mm[Hg] MD Viktor Sotelo Work Phone: [facility] 11-12-2023 13:23-0400 Heart rate 81 /min MD Viktor Sotelo Work Phone: [facility] 11-12-2023 13:23-0400 Systolic blood pressure 108 mm[Hg] MD Viktor Sotelo Work Phone: [facility] 01-21-2023 06:55-0400 Body height 167.64 cm MD Viktor Sotelo Work Phone: [facility] 01-21-2023 06:55-0400 Body weight 108.86 kg MD Viktor Sotelo Work Phone: [facility] 01-20-2023 08:36-0400 Body height 167.64 cm Viktor Sotelo Work Phone: [facility] [address] DO Work Phone: 01-20-2023 08:36-0400 Body mass index (BMI) [Ratio] 39.06 kg/m2 Viktor Sotelo Work Phone: [facility] [address] DO Work Phone: 01-20-2023 08:36-0400 Body surface area Derived from formula 2.17 m2 Viktor Sotelo Work Phone: [facility] [address] DO Work Phone: 01-20-2023 08:36-0400 Body weight 109.77 kg Viktor Sotelo Work Phone: [facility] [address] DO Work Phone: 01-20-2023 08:36-0400 Diastolic blood pressure 80 mm[Hg] Viktor Sotelo Work Phone: [facility] [address] DO Work Phone: 01-20-2023 08:36-0400 Respiratory rate 60 /min Viktor Sotelo Work Phone: [facility] [address] DO Work Phone: 01-20-2023 08:36-0400 Systolic blood pressure 122 mm[Hg] Viktor Sotelo Work Phone: [facility] DO Work Phone: 12-15-2022 09:00-0400 Body weight 109.04 kg MD Viktor Sotelo Work Phone: [facility] 12-15-2022 07:30-0400 Body temperature 97.9 [degF] MD Viktor Sotelo Work Phone: [facility] 12-15-2022 07:30-0400 Diastolic blood pressure 72 mm[Hg] MD Viktor Sotelo Work Phone: [facility] 12-15-2022 07:30-0400 Heart rate 81 /min MD Viktor Sotelo Work Phone: [facility] 12-15-2022 07:30-0400 SaO2% (BldA) [Mass fraction] 100 % MD Viktor Sotelo Work Phone: [facility] 12-15-2022 07:30-0400 Systolic blood pressure 115 mm[Hg] MD Viktor Sotelo Work Phone: [facility] 12-14-2022 20:18-0400 Respiratory rate 16 /min MD Viktor Sotelo Work Phone: [facility] 12-12-2022 13:58-0400 Body height 167.64 cm MD Viktor Sotelo Work Phone: [facility] 12-11-2022 20:49-0400 Diastolic blood pressure 87 mm[Hg] MD Viktor Sotelo Work Phone: [facility] 12-11-2022 20:49-0400 Heart rate 70 /min MD Viktor Sotelo Work Phone: [facility] 12-11-2022 20:49-0400 Respiratory rate 18 /min MD Viktor Sotelo Work Phone: [facility] 12-11-2022 20:49-0400 SaO2% (BldA) [Mass fraction] 99 % MD Viktor Sotelo Work Phone: [facility] 12-11-2022 20:49-0400 Systolic blood pressure 132 mm[Hg] MD Viktor Sotelo Work Phone: [facility] 12-11-2022 17:43-0400 Body height 167.64 cm MD Viktor Sotleo Work Phone: [facility] 12-11-2022 17:43-0400 Body temperature 97.7 [degF] MD Viktor Sotelo Work Phone: [facility] 12-11-2022 17:43-0400 Body weight 108.86 kg MD Viktor Sotelo Work Phone: [facility] 11-01-2022 07:24-0400 Body temperature 97.6 [degF] MD Viktor Sotelo Work Phone: [facility] 11-01-2022 07:24-0400 Diastolic blood pressure 66 mm[Hg] MD Viktor Sotelo Work Phone: [facility] 11-01-2022 07:24-0400 Heart rate 67 /min MD Viktor Sotelo Work Phone: [facility] 11-01-2022 07:24-0400 Respiratory rate 16 /min MD Viktor Sotelo Work Phone: [facility] 11-01-2022 07:24-0400 SaO2% (BldA) [Mass fraction] 95 % MD Viktor Sotelo Work Phone: [facility] 11-01-2022 07:24-0400 Systolic blood pressure 104 mm[Hg] MD Viktor Sotelo Work Phone: [facility] 10-31-2022 14:36-0400 Body height 167.64 cm MD Viktor Sotelo Work Phone: [facility] 10-28-2022 19:02-0400 Body weight 110.67 kg MD Viktor Sotelo Work Phone: [facility] 10-28-2022 17:56-0400 Diastolic blood pressure 66 mm[Hg] MD Viktor Sotelo Work Phone: [facility] 10-28-2022 17:56-0400 Heart rate 57 /min MD Viktor Sotelo Work Phone: [facility] 10-28-2022 17:56-0400 Respiratory rate 16 /min MD Viktor Sotelo Work Phone: [facility] 10-28-2022 17:56-0400 SaO2% (BldA) [Mass fraction] 97 % MD Viktor Sotelo Work Phone: [facility] 10-28-2022 17:56-0400 Systolic blood pressure 132 mm[Hg] MD Viktor Sotelo Work Phone: [facility] 10-28-2022 14:47-0400 Body height 167.64 cm MD Viktor Sotelo Work Phone: [facility] 10-28-2022 14:47-0400 Body temperature 97.8 [degF] MD Viktor Sotelo Work Phone: [facility] 10-28-2022 14:47-0400 Body weight 111.25 kg MD Viktor Sotelo Work Phone: [facility] 10-18-2022 19:10-0400 Diastolic blood pressure 84 mm[Hg] MD Viktor Sotelo Work Phone: [facility] 10-18-2022 19:10-0400 Heart rate 71 /min MD Viktor Sotelo Work Phone: [facility] 10-18-2022 19:10-0400 Respiratory rate 18 /min MD Viktor Sotelo Work Phone: [facility] 10-18-2022 19:10-0400 SaO2% (BldA) [Mass fraction] 97 % MD Viktor Sotelo Work Phone: [facility] 10-18-2022 19:10-0400 Systolic blood pressure 141 mm[Hg] MD Viktor Sotelo Work Phone: [facility] 10-18-2022 16:53-0400 Body temperature 98 [degF] MD Viktor Sotelo Work Phone: [facility] 10-18-2022 16:51-0400 Body height 167.64 cm MD Viktor Sotelo Work Phone: [facility] 10-18-2022 16:51-0400 Body weight 112 kg MD Viktor Sotelo Work Phone: [facility] 09-28-2022 22:35-0400 Diastolic blood pressure 81 mm[Hg] MD Viktor Sotelo Work Phone: [facility] 09-28-2022 22:35-0400 Heart rate 97 /min MD Viktor Sotelo Work Phone: [facility] 09-28-2022 22:35-0400 Respiratory rate 18 /min MD Viktro Sotelo Work Phone: [facility] 09-28-2022 22:35-0400 SaO2% (BldA) [Mass fraction] 96 % MD Viktor Sotelo Work Phone: [facility] 09-28-2022 22:35-0400 Systolic blood pressure 131 mm[Hg] MD Viktor Sotelo Work Phone: [facility] 09-28-2022 21:15-0400 Body temperature 100.7 [degF] MD Viktor Sotelo Work Phone: [facility] 09-28-2022 19:07-0400 Body height 167.64 cm MD Viktor Sotelo Work Phone: [facility] 09-28-2022 19:07-0400 Body weight 114 kg MD Viktor Sotelo Work Phone: [facility] 09-07-2022 15:07-0400 Body temperature 97.8 [degF] MD Viktor Sotelo Work Phone: [facility] 09-07-2022 15:07-0400 Diastolic blood pressure 60 mm[Hg] MD Viktor Sotelo Work Phone: [facility] 09-07-2022 15:07-0400 Heart rate 78 /min MD Viktor Sotelo Work Phone: [facility] 09-07-2022 15:07-0400 SaO2% (BldA) [Mass fraction] 96 % MD Viktor Sotelo Work Phone: [facility] 09-07-2022 15:07-0400 Systolic blood pressure 100 mm[Hg] MD Viktor Sotelo Work Phone: [facility] 09-07-2022 07:30-0400 Respiratory rate 16 /min MD Viktor Sotelo Work Phone: [facility] 09-04-2022 14:15-0400 Body height 167.64 cm MD Viktor Sotelo Work Phone: [facility] 09-04-2022 02:40-0400 Body weight 111.13 kg MD Viktor Sotelo Work Phone: [facility] 08-13-2022 08:18-0500 Body temperature 98.1 [degF] MD Viktor Sotelo Work Phone: [facility] 08-13-2022 08:18-0500 Diastolic blood pressure 82 mm[Hg] MD Viktor Sotelo Work Phone: [facility] 08-13-2022 08:18-0500 Heart rate 60 /min MD Viktor Sotelo Work Phone: [facility] 08-13-2022 08:18-0500 Respiratory rate 16 /min MD Viktor Sotelo Work Phone: [facility] 08-13-2022 08:18-0500 SaO2% (BldA) [Mass fraction] 96 % MD Viktor Sotelo Work Phone: [facility] 08-13-2022 08:18-0500 Systolic blood pressure 126 mm[Hg] MD Viktor Sotelo Work Phone: [facility] 08-11-2022 21:50-0500 Body height 167.64 cm MD Viktor Sotelo Work Phone: [facility] 08-11-2022 21:50-0500 Body weight 114.75 kg MD Viktor Sotelo Work Phone: [facility] 08-05-2022 09:27-0500 Body temperature 98.1 [degF] MD Viktor Sotelo Work Phone: [facility] 08-05-2022 09:27-0500 Respiratory rate 16 /min MD Viktor Sotelo Work Phone: [facility] 08-05-2022 09:07-0500 Diastolic blood pressure 74 mm[Hg] MD Viktor Sotelo Work Phone: [facility] 08-05-2022 09:07-0500 Heart rate 83 /min MD Viktor Sotelo Work Phone: [facility] 08-05-2022 09:07-0500 Systolic blood pressure 124 mm[Hg] MD Viktor Sotelo Work Phone: [facility] 08-05-2022 09:05-0500 Body height 167.64 cm MD Viktor Sotelo Work Phone: [facility] 08-05-2022 09:05-0500 Body weight 115.21 kg MD Viktor Sotelo Work Phone: [facility] 08-02-2022 12:30-0500 Diastolic blood pressure 79 mm[Hg] MD Viktor Sotelo Work Phone: [facility] 08-02-2022 12:30-0500 Heart rate 68 /min MD Viktor Sotelo Work Phone: [facility] 08-02-2022 12:30-0500 Systolic blood pressure 143 mm[Hg] MD Viktor Sotelo Work Phone: [facility] 08-02-2022 12:15-0500 Respiratory rate 18 /min MD Viktor Sotelo Work Phone: [facility] 08-02-2022 10:30-0500 Body temperature 97.2 [degF] MD Viktor Sotelo Work Phone: [facility] 08-02-2022 08:36-0500 SaO2% (BldA) [Mass fraction] 94 % MD Viktor Sotelo Work Phone: [facility] 08-01-2022 22:01-0500 Body height 167.64 cm MD Viktor Sotelo Work Phone: [facility] 08-01-2022 22:01-0500 Body weight 115.21 kg MD Viktor Sotelo Work Phone: [facility] 07-22-2022 10:12-0500 Body height 167.64 cm Viktor Sotelo Work Phone: [facility] [address] DO Work Phone: 07-22-2022 10:12-0500 Body mass index (BMI) [Ratio] 41.8 kg/m2 Viktor Sotelo Work Phone: [facility] [address] DO Work Phone: 07-22-2022 10:12-0500 Body surface area Derived from formula 2.23 m2 Viktor Sotelo Work Phone: [facility] [address] DO Work Phone: 07-22-2022 10:12-0500 Body weight 117.48 kg Viktor Sotelo Work Phone: [facility] [address] DO Work Phone: 07-22-2022 10:12-0500 Diastolic blood pressure 72 mm[Hg] Viktor Sotelo Work Phone: [facility] DO Work Phone: 07-22-2022 10:12-0500 Heart rate 73 /min Viktor Sotelo Work Phone: [facility] [address] DO Work Phone: 07-22-2022 10:12-0500 Systolic blood pressure 114 mm[Hg] Viktor Sotelo Work Phone: [facility] [address] DO Work Phone: 07-17-2022 15:30-0500 Body temperature 97.9 [degF] MD Viktor Sotelo Work Phone: [facility] 07-17-2022 15:30-0500 Diastolic blood pressure 68 mm[Hg] MD Viktor Sotelo Work Phone: [facility] 07-17-2022 15:30-0500 Heart rate 78 /min MD Viktor Sotelo Work Phone: [facility] 07-17-2022 15:30-0500 Respiratory rate 18 /min MD Viktor Sotelo Work Phone: [facility] 07-17-2022 15:30-0500 SaO2% (BldA) [Mass fraction] 100 % MD Viktor Sotelo Work Phone: [facility] 07-17-2022 15:30-0500 Systolic blood pressure 149 mm[Hg] MD Viktor Sotelo Work Phone: [facility] 07-16-2022 16:29-0500 Body height 167.64 cm MD Viktor Sotelo Work Phone: [facility] 07-15-2022 13:12-0500 Body weight 115.66 kg MD Viktor Sotelo Work Phone: [facility] 07-15-2022 10:53-0500 Body height 167.64 cm MD Viktor Sotelo Work Phone: [facility] 07-15-2022 10:53-0500 Body temperature 98.7 [degF] MD Viktor Sotelo Work Phone: [facility] 07-15-2022 10:53-0500 Body weight 115.85 kg MD Viktor Sotelo Work Phone: [facility] 07-15-2022 10:53-0500 Diastolic blood pressure 80 mm[Hg] MD Viktor Sotelo Work Phone: [facility] 07-15-2022 10:53-0500 Heart rate 72 /min MD Viktor Sotelo Work Phone: [facility] 07-15-2022 10:53-0500 Respiratory rate 20 /min MD Viktor Sotelo Work Phone: [facility] 07-15-2022 10:53-0500 SaO2% (BldA) [Mass fraction] 98 % MD Viktor Sotelo Work Phone: [facility] 07-15-2022 10:53-0500 Systolic blood pressure 149 mm[Hg] MD Viktor Sotelo Work Phone: [facility] 07-09-2022 13:38-0500 Diastolic blood pressure 71 mm[Hg] MD Viktor Sotelo Work Phone: [facility] 07-09-2022 13:38-0500 Heart rate 85 /min MD Viktor Sotelo Work Phone: [facility] 07-09-2022 13:38-0500 Systolic blood pressure 109 mm[Hg] MD Viktor Sotelo Work Phone: [facility] 07-09-2022 11:35-0500 Body temperature 98.1 [degF] MD Viktor Sotelo Work Phone: [facility] 07-09-2022 11:35-0500 Respiratory rate 18 /min MD Viktor Sotelo Work Phone: [facility] 07-09-2022 11:35-0500 SaO2% (BldA) [Mass fraction] 97 % MD Viktor Sotelo Work Phone: [facility] 06-26-2022 22:17-0500 Respiratory rate 16 /min MD Viktor Sotelo Work Phone: [facility] 06-26-2022 21:54-0500 Body temperature 97.3 [degF] MD Viktor Sotelo Work Phone: [facility] 06-26-2022 21:53-0500 Diastolic blood pressure 81 mm[Hg] MD Viktor Sotelo Work Phone: [facility] 06-26-2022 21:53-0500 Heart rate 83 /min MD Viktor Sotelo Work Phone: [facility] 06-26-2022 21:53-0500 Systolic blood pressure 132 mm[Hg] MD Viktor Sotelo Work Phone: [facility] 06-26-2022 21:37-0500 Body height 167.64 cm MD Viktor Sotelo Work Phone: [facility] 06-26-2022 21:37-0500 Body weight 117.93 kg MD Viktor Sotelo Work Phone: [facility] 06-25-2022 22:03-0500 Diastolic blood pressure 78 mm[Hg] MD Viktor Sotelo Work Phone: [facility] 06-25-2022 22:03-0500 Heart rate 90 /min MD Viktor Sotelo Work Phone: [facility] 06-25-2022 22:03-0500 Respiratory rate 18 /min MD Viktor Sotelo Work Phone: [facility] 06-25-2022 22:03-0500 SaO2% (BldA) [Mass fraction] 97 % MD Viktor Sotelo Work Phone: [facility] 06-25-2022 22:03-0500 Systolic blood pressure 127 mm[Hg] MD Viktor Sotelo Work Phone: [facility] 06-25-2022 17:29-0500 Body height 167.64 cm MD Viktor Sotelo Work Phone: [facility] 06-25-2022 17:29-0500 Body temperature 98.3 [degF] MD Viktor Sotelo Work Phone: [facility] 06-25-2022 17:29-0500 Body weight 117 kg MD Viktor Sotelo Work Phone: [facility] 06-25-2022 12:40-0500 Body temperature 97.9 [degF] MD Viktor Sotelo Work Phone: [facility] 06-25-2022 12:40-0500 Diastolic blood pressure 80 mm[Hg] MD Viktor Sotelo Work Phone: [facility] 06-25-2022 12:40-0500 Heart rate 66 /min MD Viktor Sotelo Work Phone: [facility] 06-25-2022 12:40-0500 Respiratory rate 18 /min MD Viktor Sotelo Work Phone: [facility] 06-25-2022 12:40-0500 SaO2% (BldA) [Mass fraction] 98 % MD Viktor Sotelo Work Phone: [facility] 06-25-2022 12:40-0500 Systolic blood pressure 129 mm[Hg] MD Viktor Sotelo Work Phone: [facility] 02-13-2022 07:45-0400 60 1 Viktor Sotelo Work Phone: [facility] [place] Work Phone: Comment on above: [id number] 01-20-2022 19:14-0400 Diastolic blood pressure 64 mm[Hg] MD Viktor Sotelo Work Phone: [facility] 01-20-2022 19:14-0400 Heart rate 64 /min MD Viktor Sotelo Work Phone: [facility] 01-20-2022 19:14-0400 Respiratory rate 18 /min MD Viktor Sotelo Work Phone: [facility] 01-20-2022 19:14-0400 SaO2% (BldA) [Mass fraction] 100 % MD Viktor Sotelo Work Phone: [facility] 01-20-2022 19:14-0400 Systolic blood pressure 107 mm[Hg] MD Viktor Sotelo Work Phone: [facility] 01-20-2022 14:29-0400 Body temperature 98.4 [degF] MD Viktor Sotelo Work Phone: [facility] 01-20-2022 13:040 Body height 167.64 cm MD Viktor Sotelo Work Phone: [facility] 01-20-2022 13:040 Body weight 102.4 kg MD Viktor Sotelo Work Phone: [facility] 01-14-2022 10:20-0400 Diastolic blood pressure 74 mm[Hg] Viktor Sotelo Work Phone: [facility] [address] DO Work Phone: 01-14-2022 10:20-0400 Heart rate 65 /min Viktor Sotelo Work Phone: [facility] 320 DO Work Phone: 01-14-2022 10:20-0400 Systolic blood pressure 110 mm[Hg] Viktor Sotelo Work Phone: [facility] 320 DO Work Phone: 01-14-2022 10:19-0400 Body height 167.64 cm Viktor Sotelo Work Phone: [facility] 320 DO Work Phone: 01-14-2022 10:19-0400 Body mass index (BMI) [Ratio] 36.68 kg/m2 Viktor Sotelo Work Phone: [facility] 320 DO Work Phone: 01-14-2022 10:19-0400 Body surface area Derived from formula 2.11 m2 Viktor Sotelo Work Phone: [facility] 320 DO Work Phone: 01-14-2022 10:19-0400 Body weight 103.08 kg Viktor Sotelo Work Phone: [facility] 320 DO Work Phone: 12-11-2021 07:30-0400 Body temperature 98.4 [degF] MD Viktor Sotelo Work Phone: [facility] 12-11-2021 07:30-0400 Diastolic blood pressure 66 mm[Hg] MD Viktor Sotelo Work Phone: [facility] 12-11-2021 07:30-0400 Heart rate 86 /min MD Viktor Sotelo Work Phone: [facility] 12-11-2021 07:30-0400 Respiratory rate 16 /min MD Viktor Sotelo Work Phone: [facility] 12-11-2021 07:30-0400 SaO2% (BldA) [Mass fraction] 95 % MD Viktor Sotelo Work Phone: [facility] 12-11-2021 07:30-0400 Systolic blood pressure 128 mm[Hg] MD Viktor Sotelo Work Phone: [facility] 12-10-2021 15:45-0400 Body height 167.64 cm MD Viktor Sotelo Work Phone: [facility] 12-09-2021 14:00-0400 Body mass index (BMI) [Ratio] 35.4 kg/m2 MD Viktor Sotelo Work Phone: [facility] 12-09-2021 09:00-0400 Body weight 99.75 kg MD Viktor Sotelo Work Phone: [facility] 04-30-2021 13:15-0500 Body height 167.64 cm Viktor Sotelo Work Phone: QL-Usbkuwmuajjb-FYX [facility] Work Phone: 04-30-2021 13:15-0500 Body mass index (BMI) [Ratio] 31.47 kg/m2 Viktor Sotelo Work Phone: TP-Ldxddoxnewrp-YIZ [facility] Work Phone: 04-30-2021 13:15-0500 Body surface area Derived from formula 1.98 m2 Viktor Sotelo Work Phone: ZB-Xabvubiezrqc-HBC Work Phone: 04-30-2021 13:15-0500 Body weight 88.45 kg Viktor Sotelo Work Phone: HS-Fznaretjrtla-IWC Work Phone: 04-30-2021 13:15-0500 Diastolic blood pressure 82 mm[Hg] Viktor Sotelo Work Phone: ER-Efaoqnwizwmr-WVV Work Phone: 04-30-2021 13:15-0500 Heart rate 70 /min Viktor Sotelo Work Phone: QW-Cqdbcjgwdbuo-[facility]N Work Phone: 04-30-2021 13:15-0500 Respiratory rate 18 /min Viktor Sotelo Work Phone: UD-Cavfujzjrhjp-XMR Work Phone: 04-30-2021 13:15-0500 Systolic blood pressure 118 mm[Hg] Viktor Sotelo Work Phone: FB-Wkjslmhworcv-UKP Work Phone: 05-25-2020 17:24-0500 SaO2% (BldA) [Mass fraction] 64 % [facility] Hospital Encounters Encounter Date Encounter Type Care Provider Facility Start: 03-15-2025 End: 03-15-2025 ambulatory RITA Helms [facility] Start: 03-15-2025 End: 03-15-2025 Subsequent hospital visit by physician Alondra [facility] Comment on above: Pacemaker; Sick sinus syndrome (Multi) Start: 01-10-2025 ambulatory Viktor Sotelo Facility :[facility] Start: 01-02-2025 End: 01-02-2025 ambulatory Michael VIVEROS Facility:[facility] Start: 01-02-2025 End: 01-02-2025 Patient encounter procedure [facility]UN[facility] Start: 12-07-2024 End: 12-07-2024 ambulatory RITA Helms [facility] Start: 12-07-2024 End: 12-07-2024 Subsequent hospital visit by physician Alondra [facility] Comment on above: Pacemaker; Sick sinus syndrome (Multi) Start: 11-17-2024 Non-patient / Non-visit Viktor Sotelo MD Work Phone: [facility] V[facility] Surg Work Phone: Start: 11-17-2024 End: 11-17-2024 Admission to same day surgery center Viktor Sotelo MD [facility] [place] [facility] [place] Start: 11-17-2024 End: 11-17-2024 ambulatory Viktor Sotelo MD Work Phone: [facility] Work Phone: Start: 11-15-2024 Registered Recurring Viktor jenkins MD Work Phone: [facility] Start: 11-07-2024 End: 11-07-2024 Patient encounter procedure Viktor Sotelo MD Work Phone: [facility] [place] Work Phone: Start: 10-31-2024 Non-patient / Non-visit Viktor Sotelo MD Work Phone: [facility] Work Phone: Start: 09-26-2024 Non-patient / Non-visit Viktor Sotelo MD Work Phone: [facility] Work Phone: Start: 09-26-2024 End: 09-26-2024 ambulatory Tete Snell MD Facility: [place] Start: 08-31-2024 End: 08-31-2024 Subsequent hospital visit by physician Alondra [facility] Comment on above: Pacemaker; Sick sinus syndrome (Multi) Start: 08-31-2024 End: 08-31-2024 Patient encounter procedure Viktor Sotelo MD Work Phone: [facility] [place] Work Phone: Start: 08-31-2024 End: 08-31-2024 ambulatory Viktor Sotelo MD Work Phone: [facility] Work Phone: Start: 08-24-2024 End: 08-24-2024 ambulatory Viktor Sotelo Facility:[facility] Start: 08-24-2024 Non-patient / Non-visit Viktor Sotelo MD Work Phone: [facility] Start: 08-23-2024 Registered Recurring Viktor jenkins MD Work Phone: [facility] Start: 07-25-2024 End: 07-25-2024 ambulatory Tete Snell MD Facility: [place] Start: 07-11-2024 Non-patient / Non-visit Viktor Sotelo MD Work Phone: [facility] Work Phone: Start: 07-11-2024 End: 07-11-2024 ambulatory Tete Snell MD Facility: [place] Start: 07-05-2024 End: 07-05-2024 ambulatory Michael VIVEROS Facility:[facility] Start: 07-05-2024 End: 07-05-2024 Patient encounter procedure Michael VIVEROS [facility] Start: 07-05-2024 Non-patient / Non-visit Viktor Sotelo MD Work Phone: [facility] Work Phone: Start: 07-04-2024 End: 07-04-2024 Patient encounter procedure Viktor Sotelo MD Work Phone: [facility]-CT Scan [facility] [place] Work Phone: Start: 07-04-2024 End: 07-04-2024 ambulatory Viktor Sotelo MD Work Phone: [facility] Work Phone: Start: 06-27-2024 End: 06-27-2024 ambulatory Tete Snell MD Facility:[facility] Start: 06-21-2024 Registered Recurring Viktor jenkins MD Work Phone: [facility] Start: 06-10-2024 End: 06-10-2024 Patient encounter procedure Viktor Sotelo MD Work Phone[facility] Work Phone: Start: 06-02-2024 End: 06-02-2024 ambulatory ESTELA E JATIN Facility:[facility] [place] Start: 06-02-2024 End: 06-02-2024 Patient encounter procedure ESTELA E JATIN [facility] Start: 06-02-2024 Non-patient / Non-visit Viktor Sotelo MD Work Phone: [facility] Work Phone: Start: 05-30-2024 End: 05-30-2024 Patient encounter procedure Viktor Sotelo MD Work Phone: [facility]-Ultrasound [place] Work Phone: Start: 05-30-2024 End: 05-30-2024 ambulatory Viktor Sotelo Facility:[facility] Start: 05-30-2024 End: 05-30-2024 ambulatory ESTELA E JATIN Facility: [place] Start: 05-30-2024 End: 05-30-2024 Patient encounter procedure ESTELA E JATIN [facility] Start: 05-25-2024 End: 05-25-2024 ambulatory RITA Helms [facility] Start: 05-25-2024 End: 05-25-2024 Subsequent hospital visit by physician Alondra [facility] Comment on above: Pacemaker; Sick sinus syndrome (Multi) Start: 05-03-2024 End: 05-03-2024 ambulatory ESTELA CHUNG Facility:[facility] Start: 05-03-2024 End: 05-03-2024 Patient encounter procedure ESTELA CHUNG [facility] Start: 02-10-2024 End: 02-10-2024 Subsequent hospital visit by physician Alondra [facility] Comment on above: Pacemaker; Sick sinus syndrome (Multi) Start: 11-12-2023 End: 11-12-2023 ambulatory MD Viktor Sotelo Work Phone: [facility] Work Phone: Start: 11-12-2023 End: 11-12-2023 Patient encounter procedure MD Viktor Sotelo Work Phone: [facility] Work Phone: Start: 11-09-2023 Registered Recurring MD Viktor Sotelo Work Phone: [facility] Start: 11-04-2023 End: 11-04-2023 Subsequent hospital visit by physician Alondra [facility] Comment on above: Pacemaker; Sick sinus syndrome (Multi) Start: 10-29-2023 End: 10-31-2023 Evaluation and management of inpatient VIKTOR SOTELO [facility] Start: 10-29-2023 Non-patient / Non-visit MD Viktor Sotelo Work Phone: [facility] Work Phone: Start: 10-28-2023 Non-patient / Non-visit MD Viktor Sotelo Work Phone: [facility] Work Phone: Start: 10-27-2023 Non-patient / Non-visit MD Viktor Sotelo Work Phone: [facility] Work Phone: Start: 10-26-2023 Non-patient / Non-visit MD Viktor Sotelo Work Phone: [facility] Work Phone: Start: 07-29-2023 End: 07-29-2023 Subsequent hospital visit by physician Alondra [facility] Comment on above: Pacemaker; Sick sinus syndrome (CMS/HCC) Start: 04-28-2023 End: 04-28-2023 Patient encounter procedure ESTELA CHUNG [facility] Start: 04-24-2023 End: 04-24-2023 Subsequent hospital visit by physician Alondra [facility] Comment on above: Pacemaker; Sick sinus syndrome (CMS/HCC) Start: 01-21-[address] Viktor Sotelo Facility:[id number] Start: 01-21-2023 End: 01-21-2023 ambulatory MD Viktor Sotelo Work Phone: [facility] Work Phone: Start: 01-21-2023 End: 01-21-2023 Patient encounter procedure MD Viktor Sotelo Work Phone: [facility]-MRI [facility] [place] Work Phone: Start: 01-20-2023 Current tobacco non-user cad cap copd pv dm Viktor Sotelo Work Phone: [facility] [address] DO Work Phone: Start: 01-20-[address] Viktor Sotelo Facility:[id number] Start: 12-19-[address] Viktor Sotelo Facility:[id number] Start: 12-19-2022 End: 12-19-2022 ambulatory MD Viktor Sotelo Work Phone: [facility] Work Phone: Start: 12-19-2022 End: 12-19-2022 Patient encounter procedure MD Viktor Sotelo Work Phone: [facility]-Pacemaker Check Start: 12-11-2022 End: 12-15-2022 Evaluation and management of inpatient MD Viktor Sotelo Work Phone: [facility] Work Phone: Start: 12-09-2022 End: 12-09-2022 Patient encounter procedure Michael Liz VIVEROS [facility] Start: 11-03-2022 Registered Recurring MD Viktor Sotelo Work Phone: [facility] Start: 10-28-2022 End: 11-01-2022 Evaluation and management of inpatient MD Viktor Sotelo Work Phone: [facility] Work Phone: Start: 10-28-2022 Registered Recurring MD Viktor Sotelo Work Phone: [facility] Start: 10-21-[address] Viktor Sotelo Facility:[id number] Start: 10-18-2022 End: 10-18-2022 Emergency department patient visit MD Viktor Sotelo Work Phone: [facility]-Emergency Room Work Phone: Start: 10-16-2022 End: 10-16-2022 ambulatory KRISTA HARVEY . Facility:[facility]1 Start: 09-28-2022 End: 09-28-2022 Emergency department patient visit MD Viktor Sotelo Work Phone: [facility]-Emergency Room Work Phone: Start: 09-03-2022 End: 09-07-2022 Evaluation and management of inpatient MD Viktor Sotelo Work Phone: [facility] Work Phone: Start: 09-03-2022 End: 09-03-2022 Patient encounter procedure ESTELA CHUNG [facility] Start: 08-11-2022 End: 08-13-2022 Evaluation and management of inpatient MD Viktor Sotelo Work Phone: [facility]-3 [facility] Post Work Phone: Start: 08-05-2022 End: 08-05-2022 ambulatory MD Viktor Sotelo Work Phone: [facility] Work Phone: Start: 08-05-2022 End: 08-05-2022 Patient encounter procedure MD Viktor Sotelo Work Phone: [facility]-3 [facility] Labor - O/P Start: 08-01-2022 End: 08-02-2022 Evaluation and management of inpatient MD Viktor Sotelo Work Phone: [facility]-3 [facility] Labor and Delivery Work Phone: Start: 07-25-2022 End: 07-25-2022 ambulatory MD Viktor Sotelo Work Phone: [facility] Work Phone: Start: 07-25-2022 End: 07-25-2022 Departed Referred MD Viktor Sotelo Work Phone: [facility]-Lab [facility] [place] Work Phone: Start: 07-22-2022 Current tobacco non-user cad cap copd pv josh Sotelo Work Phone: [facility] [address] DO Work Phone: Start: 07-22-[address] Viktor Sotelo Facility:[id number] Start: 07-15-2022 End: 07-17-2022 Evaluation and management of inpatient MD Viktor Sotelo Work Phone: [facility] Work Phone: Start: 07-09-2022 End: 07-09-2022 ambulatory MD Viktor Sotelo Work Phone: [facility] Work Phone: Start: 07-09-2022 End: 07-09-2022 Discharged Recurring MD Viktor Sotelo Work Phone: [facility]-Infusion Therapy - O/P Work Phone: Start: 06-30-2022 End: 06-30-2022 ambulatory MD Viktor Sotelo Work Phone: [facility] Work Phone: Start: 06-30-2022 End: 06-30-2022 Patient encounter procedure MD Viktor Sotelo Work Phone: [facility]-Lab [facility] [place] Work Phone: Start: 06-26-2022 End: 06-26-2022 ambulatory MD Viktor Sotelo Work Phone: [facility] Work Phone: Start: 06-26-2022 End: 06-26-2022 Patient encounter procedure MD Viktor Sotelo Work Phone: [facility]-3 [place] Labor - O/P Start: 06-25-2022 End: 06-25-2022 Emergency department patient visit MD Viktor Sotelo Work Phone: [facility]-Emergency Room Work Phone: Start: 06-25-2022 Registered Recurring MD Viktor Sotelo Work Phone: [facility]-Infusion Therapy - O/P Work Phone: Start: 04-28-2022 End: 04-29-[address] VIKTOR SOTELO Facility:H1 Start: 04-17-[address] Viktor Sotelo Facility:[id number] Start: 02-14-2022 Chart Update Viktor Sotelo Work Phone: [facility] [address] DO Work Phone: Start: 02-13-2022 Patient encounter procedure Viktor Sotelo Work Phone: [facility] [address] [place] Work Phone: Start: 02-13-[address] Rita Olivia Facility:[id number] Start: 01-20-2022 End: 01-20-2022 Emergency department patient visit MD Viktor Sotelo Work Phone: [facility]-Emergency Room Start: 01-14-2022 Current tobacco non-user cad cap copd pv dm Viktor Sotelo Work Phone: [facility] [address] DO Work Phone: Start: 12-18-2021 ambulatory Clemente simmons MD Work Phone: General Surgery Comment on above: Port Start: 12-16-2021 End: 12-16-2021 Patient encounter procedure MD Viktor Sotelo Work Phone: [facility]-Lab [facility] [place] Start: 12-08-2021 End: 12-11-2021 Evaluation and management of inpatient MD Viktor Sotelo Work Phone: [address] Start: 09-18-2021 Telephone encounter Clemente Bernstein MD Work Phone: Gastroenterology Comment on above: Patient Update Start: 07-19-2021 Result Review Viktor Sotelo Work Phone: GT-Eyldztfsveqs-CTXUR Work Phone: Start: 04-30-2021 Current tobacco non-user cad cap copd pv josh Sotelo Work Phone: QD-Mrcazyrkepae-SWWZQ Work Phone: Start: 03-20-2021 Patient encounter procedure Viktor Sotelo Work Phone: [facility]-Ickomizufpdrg-Wrlwdtu [id number] Work Phone: Start: 01-24-2020 End: 01-25-2020 Patient encounter procedure ROSELINE DECKER [facility] Start: 01-24-2020 End: 01-24-2020 Subsequent hospital visit by physician [facility] Schedule [facility] Comment on above: Arrived [...] kidneys Viktor Sotelo MD Work Phone: Start: 04-24-2023 Rem interrog pm/ldls pm/ids <90 [...] Cystourethroscopy with dilation of urethral stricture ESTELA JATIN Start: 01-24-2020 Sleep std airflow hrt rate&o2 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 Start: 07-10-2019 Adult depression screening assessment Clemente Eng MD Work Phone: Appendectomy Viktor Sotelo Work Phone: Appendectomy ESTELA CHUNG Cholecystectomy Viktor sanches Work Phone: Cholecystectomy ESTELA ADELIA GALLEGOS H/O: surgery History of gastr ic surgery MD Viktor Sotelo Work Phone: Insertion of pacemak er pulse generator Viktor Sotelo Work Phone: Maintenance procedur e for cardiac pacemaker system ESTELA CHUNG Operation on gallbladder Mar abdulkadir E Sotelo Work Phone: Operation on stomach Viktor [...] 2) Zoste r Vaccines (1 of 2) [facility] Start: 02-20-2025 COVID-19 Vaccine ( season) COVID-19 Vaccine () [facility] Start: 02-20-2025 Influenza vaccination [facility] Start: 11-17-2024 [facility] Start: 11-17-2024 [facility] Start: 02-21-2024 COVID-19 Vaccine ( season) COVID-19 Vaccine ( season) [facility] Start: 02-21-2024 Influenza vaccination U [facility] Start: 07-07-2023 FUV, Provider: Rita Olivia, Status: Pen, Time: 8:40 AM FUV, Provider: Rita Olivia, Status: Pen, Time: 8:40 AM [facility] 320 DO Work Phone: Start: 07-07-2023 End: 07-07-2023 Patient encounter procedure 07/07/2023 8:40 AM EST Office Visit [place] [address] [facility] [address] [place] [address] Rita Olivia MD [address] [facility] Medical [facility] [address], [address] [place], [place] [id number] [facility] Start: 02-20-2023 COVID-19 Vaccine ( season) COVID-19 Vaccine ( season) [facility] Start: 02-20-2023 Influenza vaccination Influenza Vacc ine (#1) [facility] Start: 01-20-2023 FUV, Provider: Rita Olivia, Status: Pen, Time: 8:40 AM FUV, Provider: Rita Olivia, Status: Pen, Time: 8:40 AM [facility] 320 DO Work Phone: Start: 01-20-2023 Patient encounter procedure [id number], Provider: [facility]EM[facility]ACEM[facility], Status: Pen, Time: 8:00 AM [facility] 320 DO Work Phone: Start: 12-15-2022 [facility] Start: 12-11-2022 Referral to [facility] Start: 12-11-2022 Hospital admission [facility] Start: 12-11-2022 Bacteria identified in Urine by Culture Urine Culture [facility] Start: 11-01-2022 [facility] Start: 10-31-2022 Administration of prophylactic treatment [facility] Start: 2022 Screening for malign ant neoplasm of breast Mammogram [facility] Start: 10-29-2022 Referral to clinical licensing engineer [facility] Start: 10-28-2022 Referral to [facility] Start: 10-28-2022 Hospital admission [facility] Start: 10-28-2022 Bacteria identified in Urine by Culture [facility] Start: 09-28-2022 CT angiography of thorax CT an ignacia chest PE protocol [facility] Start: 09-28-2022 CT Chest [facility] Start: 09-28-2022 Plain chest X-ray XR chest 2V* [facility] Start: 09-28-2022 XR Chest 2 Views [facility] Start: 09-28-2022 Bacteria identified in Urine by Culture [facility] Start: 09-07-2022 [facility] Start: 09-03-2022 Hospital admission [facility] Start: 08-13-2022 [facility] Start: 08-12-2022 Referral to psychiatrist [facility] Start: 08-12-2022 Hospital admission [facility] Start: 08-11-2022 Extraction of Produc ts of Conception, Low Forceps, Via Natural or Artificial Opening Extraction of Products of Conception, Low Forceps, Via Natural or Artificial Opening [facility] Start: 08-05-2022 [facility] Start: 08-02-2022 [facility] Start: 08-02-2022 Referral to neurologist [facility] Start: 08-02-2022 Hospital admission [facility] Start: 08-02-2022 [facility] Start: 08-01-2022 Hospital admission [facility] Start: 08-01-2022 Bacteria identified in Urine by Culture [facility] Start: 07-25-2022 Group B Streptococcu s Culture Group B Streptococcus Culture [facility] Start: 07-22-2022 FUV, Provider: Rita Olivia, Status: Pen, Time: 9:40 AM FUV, Provider: Rita Olivia, Status: Pen, Time: 9:40 AM [facility] 320 DO Work Phone: Start: 07-17-2022 [facility] Start: 07-15-2022 Bacteria identified in Urine by Culture [facility] Start: 07-15-2022 Referral to [employer] [facility] Start: 07-15-2022 Sleep disorder assessment [facility] Start: 07-15-2022 Hospital admission [facility] Start: 06-26-2022 [facility] Start: 06-26-2022 Hospital admission [facility] Start: 06-26-2022 [facility] Start: 06-26-2022 Bacteria identified in Urine by Culture [facility] Start: 06-25-2022 Bacteria identified in Urine by Culture [facility] Start: 02-20-2022 Influenza vaccination INFLUENZA (#1) [facility] Start: 02-13-2022 ECHO, Provider: EDSON DUNN [facility] ,[id number], Status: Pen, Time: 7:45 AM ECHO, Provider: ЕКАТЕРИНА [facility] 01,[id number], Status: Pen, Time: 7:45 AM [facility] 320 DO Work Phone: Start: 12-11-2021 [facility] Work Phone: Start: 12-10-2021 Referral to transportation engineer [facility] Work Phone: Start: 12-09-2021 Hospital admission [facility] Work Phone: Start: 07-09-2021 Patient encounter procedure [id number], Provider: [facility],CHRISSIE, Status: Pen, Time: 10:20 AM ED-Tolfexzgamwi-SMAX C Work Phone: Start: 06-20-2021 Diabetes mellitus screening Diabetes Screening [facility] Start: 06-19-2021 EPVNEURO, Provider: Dennis Almendarez, Status: Pen, Time: 9:00 AM EPVNEURO, Provider: Dennis Almendarez, Status: Pen, Time: 9:00 AM QT-Ehmkhhizyfqmt-Xdc well 3200 Work Phone: Start: 02-20-2021 Influenza vaccination INFLUENZA (#1) [facility] Start: 07-10-2020 Adult depression screening assessment DEPRESSION SCREENING [facility] Start: 02-21-2020 Influenza vaccination Flu vaccine (# 1) [place], [place] Start: 2018 HPV TESTING HPV TESTING [facility] Start: 2018 PAP TESTING PAP TESTING [facility] Start: 2009 HPV Vaccines (1 - 3- dose standard series) HPV Vaccines (1 - 3-dose standard series) [facility] Start: 05-17-2009 MMR Vaccines (1 of 1 - Standard series) MMR Vaccines (1 of 1 - Standard series) [facility] Start: 05-17-2009 Varicella vaccination U [facility] Start: 2004 DTaP/Tdap/Td Vaccine s (1 - Tdap) DTaP/Tdap/Td Vaccines (1 - Tdap) [facility] Start: 10-31-2003 Screening for malign ant neoplasm of cervix [facility] Start: 2001 DTaP/Tdap/Td vaccine (1 - Tdap) DTaP/Tdap/Td vaccine (1 - Tdap) [place], [place] Start: 2001 Hepatitis A Vaccines (1 of 2 - Risk 2-dose series) Hepatitis A Vaccines (1 of 2 - Risk 2-dose series) [facility] Start: 2001 Hepatitis B Vaccines (1 of 3 - 19+ 3-dose series) Hepatitis B Vaccines (1 of 3 - 19+ 3-dose series) [facility] Start: 2001 Urine microalbumin profile DTAP,TDAP,TD (1 - Tdap) [facility] Start: 2000 Diabetes mellitus screening Diabetes Screening [facility] Start: 2000 HEPATITIS C SCREENING HEPATITIS C [facility] Start: 2000 Hepatitis C screening Hepatitis C [facility] Start: 2000 HIV SCREENING HIV SCREENING [facility] Start: 1997 [facility] [place] [place] Start: 10-31-1987 COVID-19 VACCINE (1) COVID-19 VACCIN E (1) [facility] Start: 10-31-1983 MMR Vaccines (1 of 1 - Standard series) MMR Vaccines (1 of 1 - Standard series) [facility] Start: 10-31-1983 Varicella vaccine (1 of 2 - 2-dose childhood series) Varicella vaccine (1 of 2 - 2-dose childhood series) [place], [place] Start: 05-02-1983 COVID-19 VACCINE (#1) COVID-19 VACCI NE (#1) [facility] Start: 1982 Hepatitis B Vaccines (1 of 3 - 3-dose series) Hepatitis B Vaccines (1 of 3 - 3-dose series) [facility] Start: 1982 HIV screening HIV Screening [facility] Start: 1982 Lipid panel Lipid Panel [facility] Start: 1982 Medicare Annual Well ness Visit Medicare Annual Wellness Visit (AWV) [facility] End: 07-29-2023 Cardiac Device Check - Remote [facility] Service Area Work Phone: Comment on above: Once for 1 Occurrenc es starting 07/29/2023 until 07/29/2023 End: 11-04-2023 Cardiac Device Check - Remote [facility] Service Area Work Phone: Comment on above: Once for 1 Occurrenc es starting 11/04/2023 until 11/04/2023 End: 05-25-2024 Cardiac Device Check - Remote [facility] Service Area Work Phone: Comment on above: Once for 1 Occurrenc es starting 05/25/2024 until 05/25/2024 End: 02-10-2024 Cardiac Device Check - Remote [facility] Service Area Work Phone: Comment on above: Once for 1 Occurrenc es starting 02/10/2024 until 02/10/2024 End: 08-31-2024 Cardiac Device Check - Remote [facility] Service Area Work Phone: Comment on above: Once for 1 Occurrenc es starting 08/31/2024 until 08/31/2024 End: 12-07-2024 Cardiac Device Check - Remote [facility] Service Area Work Phone: Comment on above: Once for 1 Occurrenc es starting 12/07/2024 until 12/07/2024 End: 03-15-2025 Cardiac Device Check - Remote [facility] Service Area Work Phone: Comment on above: Once for 1 Occurrenc es starting 03/15/2025 until 03/15/2025 End: 01-24-2020 Home Sleep Study Home Sleep Study [facility] Routine One Time for 1 Occurrences starting 01/24/2020 until 01/24/2020 [facility] [place], [place] Comment on above: One Time for 1 Occur rences starting 01/24/2020 until 01/24/2020 Patient Education [facility] Work Phone: Patient referral [facility] Work Phone: Reagin Ab [Presence] in Serum by RPR [facility] Streptococcus agalac tiae [Presence] in Unspecified specimen by Organism specific culture [facility] Immunizations Immunization Date Immunization Notes Care Provider Carlita arthur 05-27-2020 influenza virus vaccine, unspecified formulation ESTELA CHUNG [facility] 05-27-2020 influenza, injectabl e, quadrivalent, preservative free Clemente Eng MD Work Phone: [facility] 05-22-2020 influenza virus vaccine, unspecified formulation ESTELA CHUNG [facility] 08-29-2019 influenza virus vaccine, unspecified formulation Viktor Sulema Sotelo Work Phone: [facility] 320 DO Work Phone: 04-10-2019 influenza virus vaccine, unspecified formulation ESTELA DELVALLERY [facility] 04-10-2019 influenza, injectabl e, quadrivalent, preservative free Clemente Eng MD Work Phone: [facility] 04-19-2009 novel [id number], preservative-free, injectable Viktor Sotelo Work Phone: [facility] 320 DO Work Phone: Payers Date Payer Category Payer Private Health Insurance 2022 Medicaid [id number] 2022 Self-pay [id number] 2021 Medicare [id number] 2021 Medicare (Managed Care) REJI MARTEL [id number] 2021 Private Health Insurance [id number] 2020 Medicaid MEDICAID [facility] MEDICAID [id number] 2020-Present [phone] [address] [place] [address] Medicaid [id number] 2020 Medicare MEDICARE MEDICAR E A AND B [id number] 2020-Present [phone] [place] [address] Medicare [id number] 2019 Unknown [id number] .[id number] 1982 Unknown [id number] 2.840.1.292001.3.579.2.1 1982 Unknown [id number] 2840.1.924862.3.579.2.5 1982 Unknown [id number] 2.16840.1.799772.3.579.2.5 1982 Unknown [id number] 2.16.840.1.333983.3.579.2.1 1982 Unknown [id number] 2.16840.1.240133.3.579.2.1 1982 Unknown [id number] 2.16840.1.433026.3.579.2.1 1982 Unknown [id number] 2.16.840.1.289011.3.579.2.1 8 1982 Unknown [id number] 2.16.840.1.759935.3.579.2.1 1982 Unknown [id number] 2.16.840.1.464327.3.579.2.3 1982 Unknown [id number] 2.16.840.1.482132.3.579.2.3 1982 Unknown [id number] 2.16.840.1.000334.3.579.2.3 1982 Unknown [id number] 2.16.840.1.792850.3.579.2.3 1982 Unknown [id number] 2.16840.1.895425.3.579.2.1 1982 Unknown [id number] 2.840.1.345022.3.579.2.1 1982 Unknown [id number] 2.16840.1.779834.3.579.2.1 1982 Unknown [id number] 2.16840.1.084671.3.579.2.1 1982 Unknown [id number] 2.16840.1.451524.3.579.2.1 1982 Unknown [id number] 2.16840.1.412463.3.579.2.7 1982 Unknown [id number] 2.16840.1.466659.3.579.2.7 1982 Unknown [id number] 2.16840.1.648103.3.579.2.7 1982 Unknown [id number] 2.16840.1.970171.3.579.2.7 1982 Unknown [id number] 2.16840.1.074511.3.579.2.7 1982 Unknown [id number] 2.16.840.1.891347.3.579.2.1 246 1982 Unknown [id number] 2.16.840.1.730857.3.579.2.1 246 1982 Unknown [id number] 2.16.840.1.908978.3.579.2.1 246 1982 Unknown [id number] 2.16.840.1.023360.3.579.2.1 [facility] 1957 Medicaid [id number] 1957 Medicare [id number] Medicare [id number] Unknown Unknown [id number] 2.16.840.1.707562.3.579.2.5 31 Unknown [id number] 2.16.840.1.503125.3.579.2.5 31 Unknown [id number] 2.16.840.1.282360.3.579.2.5 31 Unknown [id number] 2.16.840.1.249192.3.579.2.5 31 Unknown [id number] 2.16.840.1.951608.3.579.2.5 31 Unknown [id number] 2.16.840.1.901545.3.579.2.5 31 Social History Date Type Detail Facility Tobacco smoking stat [facility] Unknown if ever smoked [facility] Start: 1980 Sex Assigned At Not on file [place], [place] Start: 06-08-2023 Non-smoker Non-smoker [facility] Work Phone: Start: 10-21-2013 End: 06-08-2023 Tobacco smoking status NHIS Never smoked tobacco [facility] Work Phone: Start: 10-21-2013 End: 06-08-2023 Tobacco use and exposure Smokeless tobacco non-user [facility] Work Phone: Start: 11-09-2020 Alcohol intake Current non-dr drawer liner of alcohol (finding) [facility] Start: 10-24-2019 History SDOH Financial 5 [facility] Start: 10-24-2019 History SDOH Food Worry 1 [facility] Start: 10-24-2019 History SDOH Transpo rt Med 2 [facility] Start: 1980 Sex Assigned At Female C [facility] Start: 05-16-2022 Tobacco smoking status Never [facility] Start: 06-08-2023 Sex Assigned At Female F [facility] Tobacco smoking stat [facility] Tobacco smoking consumption unknown [facility] Work Phone: Start: 06-08-2023 Alcohol intake Ex-drinker (finding) [facility] Work Phone: Start: 10-03-2009 End: 07-05-2024 Sex Female (finding) [facility] Sexual Orientation [facility] Medical Equipment Procedure Code Equipment Code Equipment Origin al Text Equipment Identifier Dates [facility] [id number] Start: 04-11-2020 [facility] [id number] Start: 04-11-2020 [facility] Assurity Mri [id number] Start: 04-11-2020 Tray Port-A-Cath Ii 7.8fr 2.6mm 1.6mm Polysulfone Titanium Polyurethane 76 - [id number] Start: 07-22-2018 Corflo Feeding T ube 10f 60cm [id number] Start: 08-17-2018 Kit Ponsky 20fr Silicone Peg Pull Deluxe Kit Non Safety Sterile - [id number] Start: 01-31-2019 Tube Claudio Secur-L ok 20fr Standard J Silicone Jejunostomy Trimmable Distal - [id number] Start: 04-20-2019 Tube Claudio Secur-L ok 18fr Standard Silicone Natural Rubber Jejunostomy - [id number] Start: 07-11-2019 Kit Endovive 20f r Xylocaine Silicone Peg Pull Method Ampule Trocar Cannula - [id number] Start: 10-25-2019 Goals Date Patient Goal Desired Activity /State Functional Status Date Assessment Result Facility 07-05-2024 Functional Status N/A [facility] 04-28-2023 Functional Status N/A [facility] 12-15-2022 Functional status Patient at Baseline [facility] Work Phone: 12-09-2022 Functional Status N/A [facility] 11-01-2022 Functional status Patient at Baseline [facility] Work Phone: 09-07-2022 Functional status Patient at Baseline [facility] Work Phone: 09-03-2022 Functional Status N/A [facility] 08-13-2022 Functional status Patient at Baseline [facility] Work Phone: 07-17-2022 Functional status Patient at Baseline [facility] Work Phone: 12-11-2021 Functional status Patient at Baseline [facility] Work Phone: Mental Status Date Assessment Result Facility 12-15-2022 Cognitive function Cognitive Sta tus Patient at Baseline [facility] Work Phone: 11-01-2022 Cognitive function Cognitive Sta tus Patient at Baseline [facility] Work Phone: 09-07-2022 Cognitive function Cognitive Sta tus Patient at Baseline [facility] Work Phone: 08-13-2022 Cognitive function Cognitive Sta tus Patient at Baseline [facility] Work Phone: 07-17-2022 Cognitive function Cognitive Sta tus Patient at Baseline [facility] Work Phone: 12-11-2021 Cognitive function Cognitive Sta tus Patient at Baseline [facility] Work Phone: Clinical Notes 06-07-2019 to 01-02-2025 Note Date & Type Note Facility 01-02-2025 Hospital Discharg e instructions Patient Education 01/02/2025 10:32:03 Cystoscopy Cystoscopy Cystoscopy is a procedure that is used to help diagnose and sometimes treat conditions that affect the lower urinary tract. The lower urinary tract includes the bladder and the urethra. The urethra is the tube that drains urine from the bladder. Cystoscopy is done using a thin, tube-shaped instrument with a light and camera at the end (cystoscope). The cystoscope may be hard or flexible, depending on the goal of the procedure. The cystoscope is inserted through the urethra, into the bladder. Cystoscopy may be recommended if you have: Urinary tract infections that keep coming back. Blood in the urine (hematuria). An inability to control when you urinate (urinary incontinence) or an overactive bladder. Unusual cells found in a urine sample. A blockage in the urethra, such as a urinary stone. Painful urination. An abnormality in the bladder found during an intravenous pyelogram (IVP) or CT scan. Cystoscopy may also be done to remove a sample of tissue to be examined under a microscope (biopsy). Tell a health care provider about: Any allergies you have. All medicines you are taking, including vitamins, herbs, eye drops, creams, and hkrk-pek-txsliuv medicines. Any problems you or family members have had with anesthetic medicines. Any blood disorders you have. Any surgeries you have had. Any medical conditions you have. Whether you are or may be . What are the risks? Generally, this is a safe procedure. However, problems may occur, including: Infection. Bleeding. Allergic reactions to medicines. Damage to other structures or organs. What happens before the procedure? Medicines Ask your health care provider about: Changing or stopping your regular medicines. This is especially important if you are taking diabetes medicines or blood thinners. Taking medicines such as aspirin and ibuprofen. These medicines can thin your blood. Do not take these medicines unless your health care provider tells you to take them. Taking jebj-yos-kjzelih medicines, vitamins, herbs, and supplements. Tests You may have an exam or testing, such as: X-rays of the bladder, urethra, or kidneys. CT scan of the abdomen or pelvis. Urine tests to check for signs of infection. General instructions Follow instructions from your health care provider about eating or drinking restrictions. Ask your health care provider what steps will be taken to help prevent infection. These steps may include: ?Washing skin with a germ-killing soap. ?Taking antibiotic medicine. Plan to have a responsible adult take you home from the hospital or clinic. What happens during the procedure? You will be given one or more of the following: ?A medicine to help you relax (sedative). ?A medicine to numb the area (local anesthetic). The area around the opening of your urethra will be cleaned. The cystoscope will be passed through your urethra into your bladder. Germ-free (sterile) fluid will flow through the cystoscope to fill your bladder. The fluid will stretch your bladder so that your health care provider can clearly examine your bladder ray. Your doctor will look at the urethra and bladder. Your doctor may take a biopsy or remove stones. The cystoscope will be removed, and your bladder will be emptied. The procedure may vary among health care providers and hospitals. What can I expect after the procedure? After the procedure, it is common to have: Some soreness or pain in your abdomen and urethra. Urinary symptoms. These include: ?Mild pain or burning when you urinate. Pain should stop within a few minutes after you urinate. This may last for up to 1 week. ?A small amount of blood in your urine for several days. ?Feeling like you need to urinate but producing only a small amount of urine. Follow these instructions at home: Medicines Take uaah-vvr-smtfyko and prescription medicines only as told by your health care provider. If you were prescribed an antibiotic medicine, take it as told by your health care provider. Do not stop taking the antibiotic even if you start to feel better. General instructions Return to your normal activities as told by your health care provider. Ask your health care provider what activities are safe for you. If you were given a sedative during the procedure, it can affect you for several hours. Do not drive or operate machinery until your health care provider says that it is safe. Watch for any blood in your urine. If the amount of blood in your urine increases, call your health care provider. Follow instructions from your health care provider about eating or drinking restrictions. If a tissue sample was removed for testing (biopsy) during your procedure, it is up to you to get your test results. Ask your health care provider, or the department that is doing the test, when your results will be ready. Drink enough fluid to keep your urine pale yellow. Keep all follow-up visits. This is important. Contact a health care provider if: You have pain that gets worse or does not get better with medicine, especially pain when you urinate. You have trouble urinating. You have more blood in your urine. Get help right away if: You have blood clots in your urine. You have abdominal pain. You have a fever or chills. You are unable to urinate. Summary Cystoscopy is a procedure that is used to help diagnose and sometimes treat conditions that affect the lower urinary tract. Cystoscopy is done using a thin, tube-shaped instrument with a light and camera at the end. After the procedure, it is common to have some soreness or pain in your abdomen and urethra. Watch for any blood in your urine. If the amount of blood in your urine increases, call your health care provider. If you were prescribed an antibiotic medicine, take it as told by your health care provider. Do not stop taking the antibiotic even if you start to feel better. This information is not intended to replace advice given to you by your health care provider. Make sure you discuss any questions you have with your health care provider. Document Revised: 02/19/2022 Document Reviewed: 01/18/2021 [employer] Patient Education 2023 [employer]. Follow Up Care 07/05/2024 14:01:42 With:[facility] Address: When: Unknown Comments:Only if needed/new problems arise. No scheduled appointment indicated at this time. [facility] [place] 01-02-2025 Note Patient Education Urology Cystoscopy Cystoscopy is a procedure that is used to help diagnose and sometimes treat conditions that affect the lower urinary tract. The lower urinary tract includes the bladder and the urethra. The urethra is the tube that drains urine from the bladder. Cystoscopy is done using a thin, tube-shaped instrument with a light and camera at the end (cystoscope). The cystoscope may be hard or flexible, depending on the goal of the procedure. The cystoscope is inserted through the urethra, into the bladder. Cystoscopy may be recommended if you have: ??? Urinary tract infections that keep coming back. ??? Blood in the urine (hematuria). ??? An inability to control when you urinate (urinary incontinence) or an overactive bladder. ??? Unusual cells found in a urine sample. ??? A blockage in the urethra, such as a urinary stone. ??? Painful urination. ??? An abnormality in the bladder found during an intravenous pyelogram (IVP) or CT scan. Cystoscopy may also be done to remove a sample of tissue to be examined under a microscope (biopsy). Tell a health care provider about: ??? Any allergies you have. ??? All medicines you are taking, including vitamins, herbs, eye drops, creams, and jaqe-mdo-rvucpsh medicines. ??? Any problems you or family members have had with anesthetic medicines. ??? Any blood disorders you have. ??? Any surgeries you have had. ??? Any medical conditions you have. ??? Whether you are or may be . What are the risks? Generally, this is a safe procedure. However, problems may occur, including: ??? Infection. ??? Bleeding. ??? Allergic reactions to medicines. ??? Damage to other structures or organs. What happens before the procedure? Medicines Ask your health care provider about: ??? Changing or stopping your regular medicines. This is especially important if you are taking diabetes medicines or blood thinners. ??? Taking medicines such as aspirin and ibuprofen. These medicines can thin your blood. Do not take these medicines unless your health care provider tells you to take them. ??? Taking clbf-rnz-mwkrbvj medicines, vitamins, herbs, and supplements. Tests You may have an exam or testing, such as: ??? X-rays of the bladder, urethra, or kidneys. ??? CT scan of the abdomen or pelvis. ??? Urine tests to check for signs of infection. General instructions ??? Follow instructions from your health care provider about eating or drinking restrictions. ??? Ask your health care provider what steps will be taken to help prevent infection. These steps may include: ? Washing skin with a germ-killing soap. ? Taking antibiotic medicine. ??? Plan to have a responsible adult take you home from the hospital or clinic. What happens during the procedure? You will be given one or more of the following: ? A medicine to help you relax (sedative). ? A medicine to numb the area (local anesthetic). ??? The area around the opening of your urethra will be cleaned. ??? The cystoscope will be passed through your urethra into your bladder. ??? Germ-free (sterile) fluid will flow through the cystoscope to fill your bladder. The fluid will stretch your bladder so that your health care provider can clearly examine your bladder ray. ??? Your doctor will look at the urethra and bladder. Your doctor may take a biopsy or remove stones. ??? The cystoscope will be removed, and your bladder will be emptied. The procedure may vary among health care providers and hospitals. What can I expect after the procedure? After the procedure, it is common to have: ??? Some soreness or pain in your abdomen and urethra. ??? Urinary symptoms. These include: ? Mild pain or burning when you urinate. Pain should stop within a few minutes after you urinate. This may last for up to 1 week. ? A small amount of blood in your urine for several days. ? Feeling like you need to urinate but producing only a small amount of urine. Follow these instructions at home: Medicines ??? Take uwvz-jnq-yuignvm and prescription medicines only as told by your health care provider. ??? If you were prescribed an antibiotic medicine, take it as told by your health care provider. Do not stop taking the antibiotic even if you start to feel better. General instructions ??? Return to your normal activities as told by your health care provider. Ask your health care provider what activities are safe for you. ??? If you were given a sedative during the procedure, it can affect you for several hours. Do not drive or operate machinery until your health care provider says that it is safe. ??? Watch for any blood in your urine. If the amount of blood in your urine increases, call your health care provider. ??? Follow instructions from your health care provider about eating or drinking restrictions. ??? If a tissue sample was removed for testing (biopsy) during your (more content not included)... [facility] 11-07-2024 Evaluation note Diagnosis Onset Date Resolution Port-A-Cath in place acute November 07, 2024 2:52pm [facility] Work Phone: 1(744) 403-502901-14-2025 Hospital Discharge instructions Patient Education 07/05/2024 13:36:38 [...] Up Care 06/21/2024 10:16:19 With:Michael VIVEROS Address: [address] [place], [place] [id number] Business (1) When:01/02/2025 13:36:19 Comments:With Martha Chung [facility] 01-14-2025 Evaluation + Plan noteExtracted from: Title:EU Local Female Cystos copy w/ [...] antibiotic coverage, Follow up arranged. Addendum by GUILLE PATINO, Alex Johnson on July 05, 2024 13:40 EST Urethra was dilated from 22-30 [place] wi th [place] sounds. Future Appointments Appointment Date:01/02/2025 08:20:00 AM Scheduled Provider:ESTELA CHUNG PA-C Location:[facility] Appointment Type:URO Office Visit [facility] 01-14-2025 NotePatient Education Custom Cystoscopy with Urethral [...] if you have a fever over [facility] 07-04[facility] [address] [place] [address] CT Scan Report Signed Patient: Maricarmen Anderson MR#: [id number] : 1980 Acct:[id number] Age/Sex: 43 / F ADM Date: 5 Loc: CT Room: Type: [facility] Attending Dr: Michael Viveros MD Copies [...] resolved. Impression dictated by: Mitchel Oro Jr., [place]07/04/2024 2:58 PM Dictation Location: [place] [address] Transcribed By: [facility] 07/04/24 1458 Dictated By: Mitchel Oro Jr, DO 07/04/24 1455 Signed By: 07/04/24 1458 [facility]12-20-2024 Evaluation note* Diagnosis Onset Date Resolution Status Admit Date Cervical radicular pain acute D ec2023 9:26am Gastroparesis acute June 102023 9:26am [facility] Work Phone: 1(442) 307-737612-12-2024 Hospital Discharge instructions Patient Education 06/02/2024 15:53:20 [...] Follow these instructions at home: Medicines Take rqys-qbb-dfjpxab and prescription medicines only as told by [...] provider. Document Revised: 02/27/2021 Document Reviewed: 02/27/2021 [employer] Patient Education 2023 [employer]. Follow Up Care 05/27/2024 13:08:43 With:ESTELA CHUNG PA-C, URL Address: [place] [address] When: Unknown [facility] 12-12-2024 NotePatient Education Obstetrics and Gynecology [...] these instructions at home: Medicines ??? Take ikuk-bhd-cdwnibc and prescription medicines only as told by [...] Reviewed: 02/27/2021 [employer] Patient Education ? 2023 [employer].[facility] 05-25-2024 Hospital Discharge instructions Follow Up Care 05/25/2024 15:26:22 With:ESTELA CHUNG PA-C, URL Address: [address] [place] [phone] When: Unknown [facility] [place] [id number] Hospital Discharge instructions Patient Education 04/28/2023 10:54:08 Urinary Tract Infection, Adult, Tero-cr-Hhfi Urinary Tract Infection, Adult A urinary tract [...] Follow these instructions at home: Medicines Take qttc-fgd-xdreake and prescription medicines only as told by [...] provider. Document Revised: 01/18/2021 Document Reviewed: 01/18/2021 [employer] Patient Education 2022 [employer]. Follow Up Care 01/21/2023 14:42:53 With:JATIN RILEY, ESTELA Leone, URL Address: [address] [place] [address] [id number] When: Unknown Comments:1 yr w/ CRESCENCIO [facility] 06-26-2023 Discharge summary Author Nimesh regalado [facility] December 15, 2022 9:25am Note Date/Time December 15, 2022 9:24 am [facility] [address] [place] [address] Discharge Summary Signed Patient: Maricarmen Anderson MR#: [id number] : 1980 Acct:[id number] Age/Sex: 42 / F Adm Date: 3 Loc: Room: [address] [place] [address]: Eduardo Swain MD Copies to: [...] self or stop treatment, but to call [facility], 911 or come to the nearest emergency [...] 15 Days Qty: 30 0RF Follow Up: [facility] [Outside] [facility]] Viktor Sotelo MD [Primary Care Provider] - (Call your primary provider for any medical needs. ) Documented By: Nimesh Cerda MD 3 [id number] Signed By: <Electronically signed by Nimesh Cerda MD> 12/15/22 0954 [facility] Work Phone: 1(943) 176-713006-25-2023 Progress note Author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 No Is Patient Psychosocially Complex?: No ASSESSMENT AND PLAN: Medical Needs: Medical Needs: Two or more chronic diseases Psychosocial Needs: Psychosocial Needs: None FREEDOM OF CHOICE EXPLAINED: [place] of Choice Given: No Reason Not Given: No placements necessary POTENTIAL TRANSITION PLANS Patient active with [facility] in the community for tube feeding . [facility] to follow up with patient as to plan . PEJ tube Observation status. EMR reviewed. 5:00pm : [facility] indicates that Osmolite 1.5 , 1200 ml daily , 50ml/hour , free water flush at 100ml 6x a day. EMPERATRIZ Rodriguez SIGNATURE: EMPERATRIZ Hernandez PATIENT NAME: Maricarmen Anderson DATE: December 31, 2019 TIME: 3:09 PM PAGER/CONTACT #: [phone] [facility]-2020 NoteHNO ID: [id number] Author: Interface Note Service: ? Author Type: ? Type: Progress Notes Filed: 12/31/2019 3:12 AM Note Text: Epic Scheduled Downtime: 12/31/2019 1:00:00 AM to 12/31/2019 2:45:23 [facility]12-17-2019 History of Past illness Narrative* Problem [...] UTI. Placed on Cipro and presented to [facility] and had a negative culture, antibiotics [...] of this encounter (statuses as of 09/18/2021) [facility]12-17-2019 History of Past illness Narrative* Problem [...] several OSH ED and admitted once to [facility] [...] changes. PLAN: - EEG - MRI kem [facility] - Thiamine, B6, B12, Ammonia, Lead, [...] see abdominal pain for more details. Julianna allen. documented as of this encounter (statuses as of 12/26/2021) [facility] complaint Narrative - Reported* Patient is being seen for an initial Neurosurgical evaluation. * History of Chiari malformation. Having neck pain and numbness and tingling in her face and arms. Had seen F doctor, told her not warranted at this time. [facility]Ofotfkihgfee-FTJIW Work Phone: Evaluation + Plan note No data available for this section [facility] evaluation + Plan note Future Appointments Appointment Date:05/03/2024 09:00:00 AM Scheduled Provider:ESTELA CHUNG PA-C Location:[facility] Appointment Type:URO Office Visit [facility] evaluation + Plan note Future Appointments Appointment Date:06/02/2024 02:20:00 PM Scheduled Provider:ESTELA CHUNG PA-C Location:[facility] Appointment Type:URO Office Visit [facility] Evaluation note* Diagnosis Onset Date Resolution Status Advanced maternal age affecting , antepartum acute Anemia acute BMI 35.0-35.9,adult acute Depression acute First trimester ac nightmute History of induced hypertension acute Major depression 2021 acute Major depression with psychotic features acute acute PTSD (post-traumatic stress disorder) acute UTI (urinary tract infection) acute [facility] Work Phone: Evaluation noteNo assessment information available [facility] Work Phone: Evaluation note* Diagnosis Onset Date Resolution Status Hallucinations acute History of induced hypertension acute Major depression with psychotic features acute acute Schizoaffective disorder acu te [facility] Work Phone: Evaluation note* Diagnosis Onset Date Resolution Status Hallucinations acute History of induced hypertension acute Major depression with psychotic features acute acute Schizoaffective disorder acu te Chiari malformation type I a cute History of induced hypertension acute [facility] Work Phone: Evaluation note* Diagnosis Onset Date Resolution Status Hallucinations acute History of induced hypertension acute Major depression with psychotic features acute acute Schizoaffective disorder acu te Chiari malformation type I a cute History of induced hypertension acute Schizoaffective disorder acu te Auditory hallucination acute Depression with suicidal ideation acute Schizoaffective disorder acu te Suicide ideation acute [facility] Work Phone: Evaluation note* Diagnosis Onset Date Resolution Status Chiari malformation type I a cute History of induced hypertension acute Schizoaffective disorder acu te Auditory hallucination acute Depression with suicidal ideation acute Schizoaffective disorder acu te Suicide ideation acute Auditory hallucinations acut e [facility] Work Phone: Evaluation note* Diagnosis Onset Date Resolution Status Schizoaffective disorder acu te Auditory hallucination acute Depression with suicidal ideation acute Schizoaffective disorder acu te Suicide ideation acute Auditory hallucinations acut e Gastroparesis acute Nausea & vomiting acute Schizoaffective disorder acu te [facility] Work Phone: Evaluation note* Diagnosis Onset Date Resolution Status Auditory hallucinations acut e Gastroparesis acute Nausea & vomiting acute Schizoaffective disorder acu te [facility] Work Phone: Evaluation note* Diagnosis Onset Date Resolution Status Auditory hallucinations acut e Gastroparesis acute Nausea & vomiting acute Schizoaffective disorder acu te Schizoaffective disorder acu te Suicide ideation acute [facility] Work Phone: Evaluation note* Diagnosis Pacemaker Cardiac pacemaker in situ Sick sinus syndrome (CMS/HCC) Sinoatrial node dysfunction documented in this encounter [facility] Work Phone: Evaluation note* Diagnosis Pacemaker Cardiac pacemaker in situ Sick sinus syndrome (CMS/HCC) Sinoatrial node dysfunction documented in this encounter [facility] Work Phone: Evaluation note* Diagnosis Pacemaker Cardiac pacemaker in situ Sick sinus syndrome (Multi) Sinoatrial node dysfunction documented in this encounter [facility] Work Phone: Evaluation note* Diagnosis Pacemaker Cardiac pacemaker in situ Sick sinus syndrome (Multi) Sinoatrial node dysfunction documented in this encounter [facility] Work Phone: Evaluation note* Diagnosis Pacemaker Cardiac pacemaker in situ Sick sinus syndrome (Multi) Sinoatrial node dysfunction documented in this encounter [facility] Work Phone: History and physical note Author Eduardo Swain [facility] December 12, 2022 10:19am Note Date/Time December 12, 2022 10:1 9am [facility] [address] [place] [address] Psychiatry H&P Signed Patient: Maricarmen Anderson MR#: [id number] : 1980 Acct:[id number] Age/Sex: 42 / F Adm Date: 3 Loc: Room: [address] [place] [address] Type: ADM IN Attending Dr: Eduardo Swain [...] cloudy A Urine pH 6.0 Ur Specific [place] 1.015 Urine Protein Negative Urine Glucose (UA) [...] signed by Eduardo Swain MD> 12/12/22 1019 [facility] Work Phone: History of Present illness [...] 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 * Personal review of ECG and cardiac [...] needed, treatment options, risks, benefits, and imponderables. [employer] lifestyle changes and behavioral modification discussed. All questions answered in detail. Counseling over 50% visit regarding above. Patient appreciative of care. -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 * Personal review of ECG and cardiac [...] needed, treatment options, risks, benefits, and imponderables. [employer] lifestyle changes and behavioral modification discussed. All questions answered in detail. Counseling over 50% visit regarding above. Patient appreciative of care. 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 * Personal review of ECG and cardiac data reviewed . * Outside records: * OV with me December 2020 * Device check December 2020 * Office visit June 2020 * Device check November 2020 * Device check October 2020 * Office note October 2020 * Device Check: Today. [employer] 8822 pacemaker. Estimate longevity device over 9 years. [...] needed, treatment options, risks, benefits, and imponderables. [employer] lifestyle changes and behavioral modification discussed. All questions answered in detail. Counseling over 50% visit regarding above. Patient appreciative of care. 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 * Personal review of ECG and cardiac [...] treatment options, risks, benefits, and i mponderables. [employer] lifestyle changes and behavioral modification discussed. All questions answered in detail. Counseling over 50% visit regarding above. Patient appreciative of care. -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 * Personal review of ECG and cardiac [...] treatment options, risks, benefits, and i mponderables. [employer] lifestyle changes and behavioral modification discussed. All questions answered in detail. Counseling over 50% visit regarding above. Patient appreciative of care. [facility] [address] DO Work Phone: History of Present [...] * Device Check: Today. [employer] 8737 pacemaker. On field alert. Discussed field alert [...] needed, treatment options, risks, benefits, and imponderables. [employer] lifestyle changes and behavioral modification discussed. All questions answered in detail. Counseling over 50% visit regarding above. Patient appreciative of care. [facility] [address] DO Work Phone: [facility] Work Phone: Hospital Discharge instructions Additional Instructions Regular Diet No Activity [facility]ions[facility] Work Phone: Hospital Discharge instructions Additional Instructions Obtain BP cuff at pharmacy and obtain BP at home twice daily after resting for ten minutes prior to performing. Call Labor and Delivery for BP elevated 150/100 x 2 readings. Return Thursday08/05/2022 at 0900 for NST and BP check.[facility] Work Phone: Hospital Discharge instructions No data available for this section [facility] Hospital Discharge instructions Additional Instructions No Activity Restrictions Regular Diet continue your vitamin therapy after gastric surgery as prescribed. Your vitamin D and B12 were found low while you were i the hospital.[facility] Work Phone: Progress note No data available for this section [facility] reason for visit Narrative* Imaging (Routine) - Pending Review Specialty Diagnoses / Procedures Referred By Contac t Referred To Contact Cardiology Diagnoses Pacemaker Sick sinus syndrome (Multi) Procedures Cardiac Device Check - Remote Rita Olivia MD [address] [facility] [address], [address] [address] Phone: tel: fax: Referral ID Status Reason Start Date Expiration Date Visits Requested Visits Authorized [id number] Pending Review Perform Procedure 05/25/2024 05/25/2025 1 1 [facility] Work Phone: Summary Purpose Family History No [...] FoundDocuments on File Type Date Recorded 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 Advance Directives and Living Will Power of Venue Coordinator Documents on File Type Date Recorded 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 Advance Directive(s) Advance Directive(s) 11/09/2020 [...] ) MHP dizzy headache abd pain n/v [facility] Reason for Visit Chiari malformation type I History of induced hypertension Schizoaffective disorder Auditory hallucination Depression with suicidal ideation Schizoaffective disorder Suicide ideation Auditory hallucinations Chief Complaint iup 37 weeks IUP (Intrauterine ) MHP dizzy headache abd pain n/v [facility] Reason for Visit Schizoaffective diso rder Auditory hallucination Depression with suicidal ideation Schizoaffective disorder Suicide ideation Auditory hallucinations Gastroparesis Nausea & vomiting Schizoaffective disorder Chief Complaint dizzy headache abd pain n/v [facility] Reason for Visit Auditory hallucinati ons Gastroparesis Nausea & vomiting Schizoaffective disorder Chief Complaint dizzy headache abd pain n/v [facility] Reason for Visit Auditory hallucinati ons Gastroparesis Nausea & vomiting Schizoaffective disorder Schizoaffective disorder Suicide ideation Chief Complaint dizzy headache abd pain n/v [facility] mri clearance Reason for Visit Auditory hallucinati ons Gastroparesis Nausea & vomiting Schizoaffective disorder Schizoaffective disorder Suicide ideation Chief Complaint [facility] mri clearance N28.89 Reason for Visit Auditory [...] removal of port November 07, 2024 2:52pm November 15, 2024 4:18p m gastroparesis November 17, 2024 9:32a m gastroparesis November 17, 2024 1:08p m Reason for Visit Admit Date Port-A-Cath in place November 07, 2024 2:52 pm Reason for Referral Specialty Diagnoses / Procedures Referred By Laura t Referred To Contact Cardiology Diagnoses Pacemaker Sick sinus syndrome (CMS/HCC) Procedures Cardiac Device Check - Remote Rita Olivia MD [address] [place] [address] Referral ID Status Reason Start Date Expiration Date Visits Requested Visits Authorized [id number] Pending Review Perform Procedure 04/24/2023 04/23/2024 1 1 Additional Source Comments INFORMATION SOURCE (unrecogn ized section and content) DATE CREATED AUTHOR 05/13/2019 [facility] DATE CREATED AUTHOR AUTHOR'S ORGANIZ ATION 09/27/2019 [facility] DATE CREATED AUTHOR AUTHOR'S ORGANIZ ATION 02/11/2020 [facility] DATE CREATED AUTHOR AUTHOR'S ORGANIZ ATION 11/18/2020 [facility] DATE CREATED AUTHOR AUTHOR'S ORGANIZ ATION 09/20/2021 [facility] DATE CREATED AUTHOR AUTHOR'S ORGANIZ ATION 10/31/2022 [facility] DATE CREATED AUTHOR AUTHOR'S ORGANIZ ATION 01/21/2023 [facility] DATE CREATED AUTHOR AUTHOR'S ORGANIZ ATION 01/22/2023 [facility] DATE CREATED AUTHOR AUTHOR'S ORGANIZ ATION 03/05/2023 [facility] DATE CREATED AUTHOR AUTHOR'S ORGANIZ ATION 11/06/2023 [facility] DATE CREATED AUTHOR AUTHOR'S ORGANIZ ATION 10/02/2024 [facility] DATE CREATED AUTHOR AUTHOR'S ORGANIZ ATION 01/04/2025 [facility] DATE CREATED AUTHOR AUTHOR'S ORGANIZ ATION 01/12/2025 [facility] DATE CREATED AUTHOR AUTHOR'S ORGANIZ ATION 03/24/2025 [facility] Source Comments (unrecognize d section and content) In the event this informatio n is protected by the Federal Confidentiality of Alcohol and Drug Abuse Patient Records regulations: The Federal rules restrict any use of the information to criminally investigate or prosecute any alcohol or drug abuse patient[facility] the event this information is protected by the Federal Confidentiality of Alcohol and Drug Abuse Patient Records regulations: The Federal rules restrict any use of the information to criminally investigate or prosecute any alcohol or drug abuse patient.[facility] Reason for Visit (unrecogniz ed section and content) Reason Comments Patient Update Specialty Diagnoses / Procedures Referred By Contac t Referred To Contact Cardiology Diagnoses Pacemaker Sick sinus syndrome (CMS/HCC) Procedures Cardiac Device Check - Remote Rita Olivia MD [facility], [address] [address] Referral ID Status Reason Start Date Expiration Date Visits Requested Visits Authorized [id number] Pending Review Perform Procedure 04/24/2023 04/23/2024 1 1 Specialty Diagnoses / Procedures Referred By Contac t Referred To Contact Cardiology Diagnoses Pacemaker Sick sinus syndrome (CMS/HCC) Procedures [place] - [place] [address] [address] Specialty Diagnoses / Procedures Referred By Contac t Referred To Contact Cardiology Diagnoses Pacemaker Sick sinus syndrome (Multi) Procedures Cardiac Device Check - Remote Rita Olivia MD [facility], [address] [address] Care Teams (unrecognized sec tion and content) [...] 2024 Team Status: Inactive Member Role Status Tash Sotelo MD Primary Care Provider Active Start: November 07, 2024 End: November 07, 2024 Gaurav Oliver MD Attending Provider Active S tart: November 07, 2024 End: November 07, 2024 Team Status: Active Member Role Status Tash [...] 2024 Team Status: Active Member Role Status Tash Sotelo MD Primary Care Provider Active Start: November 17, 2024 Gaurav Oliver MD Attending Provider, Other Provide r Active Start: November 17, 2024 Team Status: Inactive Member Role Status Tash Sotelo MD Primary Care Provide r, Attending Provider Active Start: June 10, 2024 End: June 10, 2024 Team Status: Inactive Member Role Status Tash Sotelo MD Primary Care Provider Active Start: July 04, 2024 End: July 04, 2024 Michael Viveros MD Attending Provider Active St art: July 04, 2024 End: July 04, 2024 Team Status: Active Member Role Status Tash Sotelo MD Primary Care Provider Active Start: July 05, 2024 Emy Lemus MD Attending Provider Active St art: July 05, 2024 Team Status: Active Member Role Status Tash Sotelo MD Primary Care Provider Active Start: July 11, 2024 Tete Snell MD Attending Provider Active Start: July 11, 2024 Team Status: Active Member Role Status Tash [...] November 12, 2023 End: November 12, 2023 Recruitment And Outreach Assistant Relationship Specialty Start Date End Date Viktor Sotelo MD [address] [place] [phone] PCP - General 10/18/13 Recruitment And Outreach Assistant Relationship Specialty Start Date End Date Viktor Sotelo MD [address] [place] [phone] PCP - General 10/18/13 Team Status: Inactive Member Role Status Tash Sotelo MD Primary Care Provider Active Cornell Mcnair MD Emergency Provider Active Eduardo Swain MD Admit Provider, Attending Provider Active Urbano Palma , Other Provider Active Team Status: Inactive Member Role Status Tash Sotelo MD Primary Care Provider Active Raymond Oconnor PALuis Emergency Provider Active Team Status: Inactive Member Role Status Tash Sotelo MD Primary Care Provider Active Eduardo Swain MD Attending Provider Active Team Status: Inactive Member Role Status Tash Sotelo MD Primary Care Provider Active Delaney Carlisle , DO Attending Provider Active Team Status: Inactive Member Role Status Tash Sotelo MD Primary Care Provider Active Michael Cerda , Emergency Provider Active Team Status: Active Member Role Status Tash Sotelo MD Primary Care Provider Active Urbano Palma , Attending Provider Active Team Status: Inactive Member Role Status Tash Sotelo MD Primary Care Provider Active Urbano Palma , Attending Provider Active Team Status: Active Member Role Status Tash Sotelo MD Primary Care Provider Active Michael Cerda , Emergency Provider Active Eduardo Swain MD Admit [...] Primary Care Provider Active Raffaele Ellsworth , Emergency Provider Active Toribio Cerda MD Admit Provider, Attending Pr ovidanat Active Team Status: Inactive Member Role Status Tash Sotelo MD Primary Care Provider Active Chelsie Cortez , ALODIZE MACHINE HELPER Emergency Provider Active Team Status: Active Member Role Status Tash Sotelo MD Primary Care Provider Active Keven Florentino , Emergency Provider Active Toribio Cerda MD Admit Provider, Attending Pr ovider Active Team Status: Inactive Member Role Status Dates Viktor Sotelo MD Primary Care Provider Active Keven Florentino , DO Emergency Provider Active Toribio Cerda MD Admit Provider, Attending Pr ovider Active Poonam Dejesus , LAURYN Other Provider Active Glenis Palmer , LAURYN Other Provider Active Katarina Garrett , RN Other Provider Active Georgia Arana , RN Other Provider Active Yola Orta , LAURYN Other Provider Active Yisel Martin , LAURYN Other Provider Active Magda Hurley MD Other Provider Active Eh Jennings MD Other Provider Active Urmila Paiz , ALODIZE MACHINE HELPER Other Provider Active Mahad Mandel , DO [...] Peterson MD Other Provider Active Gretta Maki SPECIAL EDUCATION ITINERANT TEACHER-C Other Provider Active Yonny Bazan MD Other Provider Active Trace Morataya MD Other Provider Active Dimitris Joe MD Other Provider Active Verona Waterman , DO Other Provider Active All Bloom , DO Other Provider Active Joe Holland , DO Other Provider Active Candice Roman ALODIZE MACHINE HELPER Other Provider Active Rosendo Holland , DO Other Provider Active Harriet Andrade MD Other Provider Active Chaparrita Mcnair ALODIZE MACHINE HELPER Other Provider Active Sheri Montana ALODIZE MACHINE HELPER Other Provider Active Genesis Pinedo , LAURYN Other Provider Active Team Status: Active Member Role Status Dates Viktor Sotelo MD Primary Care Provider Active Toribio Cerda MD Attending Provider Active Team Status: Active Member Role Status Dates Viktor Sotelo MD Primary Care Provider Active Ke Cage , DO Emergency Provider Active Eduardo Swain [...] Active Eduardo Swain MD Admit Provider Active Recruitment And Outreach Assistant Relationship Specialty Start Date End Date Viktor Sotelo MD PCP - General 03/02/20 Recruitment And Outreach Assistant Relationship Specialty Start Date End Date Viktor Sotelo MD PCP - General 03/02/20 Recruitment And Outreach Assistant Relationship Specialty Start Date End Date Viktor Sotelo MD [address] [place] [address] PCP - General 03/02/20 Recruitment And Outreach Assistant Relationship Specialty Start Date End Date Viktor Sotelo MD [address] [place] [address] PCP - General 03/02/20 Recruitment And Outreach Assistant Relationship Specialty Start Date End Date Viktor Sotelo MD [address] [place] [address] PCP - General 03/02/20 Recruitment And Outreach Assistant Relationship Specialty Start Date End Date Viktor Sotelo MD [address] [place] [address] PCP - General 03/02/20 Goals (unrecognized section [...] BE BASED ON THE PRIMARY CLINICAL RECORDS. [facility]. provides no warranty or guarantee of the accuracy or completeness of information in this document.
--- NOTE | 2025-04-05 13:52 | PM.CN ---
Consult Note: HPI Data of Consult Patient: known to practice within the last 3 years Requesting Physician: Yareli Phillips NP Primary Care Provider: Sharyn Bradford MD Consult Narrative Reason for consult: neck pain Narrative: 44yof who presents for assessment of chronic neck pain. physical therapy was ordered and patient attended first session, but she was told that given her chiari malformation, it was too risky for them to proceed with any further cervical therapy. since last visit she stopped gabapentin due to dizziness, cannot take nsaids due to coumadin. pain today 7/10 sharp aching in neck increasing tiwth tiwsting, turning, lifting, ADLs, and sleep. cc:: CC: Yareli Phillips NP Review of Systems ROS Musculoskeletal Reports: neck pain PFSH PFSH Medical History Hypertension ?I10 - Essential (primary) hypertension (ICD-10) Schizophrenia ?F20.9 - Schizophrenia, unspecified (ICD-10) DVT (deep venous thrombosis) ?I82.409 - Acute embolism and thrombosis of unspecified deep veins of unspecified lower extremity (ICD-10) Obesity ?E66.9 - Obesity, unspecified (ICD-10) Pacemaker ?Z95.0 - Presence of cardiac pacemaker (ICD-10) Sick sinus syndrome due to SA node dysfunction ?I49.5 - Sick sinus syndrome (ICD-10) Gastroparesis ?K31.84 - Gastroparesis (ICD-10) Surgical History S/P reconstruction of ligament of knee ?Z98.890 - Other specified postprocedural states (ICD-10) History of cholecystectomy ?Z90.49 - Acquired absence of other specified parts of digestive tract (ICD-10) Hx of appendectomy ?Z90.49 - Acquired absence of other specified parts of digestive tract (ICD-10) Social History Within the past year, how often did you have a drink containing alcohol: never Score interpretation: A score less than 3 is consistent with normal alcohol consumption. Smoking status: Never smoker Non-prescribed substance use: denies use Highest level of school completed/degree received: high school graduate Are you now , , , , never or living with a partner: living with partner Little interest or pleasure in doing things: not at all Feeling down, depressed, or hopeless: not at all Feel stressed/tense/nervous/anxious/difficulty sleeping: only a little Life stressor details: new baby at age of 42 Do you think of yourself as: straight/heterosexual Gender Identity: female Meds Home Medications and Allergies Home Medications ?Medication ?Instructions ?Recorded ?Confirmed ?Type aripiprazole 30 mg tablet 30 mg PO DAILY 10/26/23 12/04/24 History benztropine 1 mg tablet 1 mg PO BID 10/26/23 12/04/24 History metoprolol succinate 25 mg 25 mg PO DAILY 10/26/23 12/04/24 History tablet,extended release 24 hr mirtazapine 15 mg tablet 15 mg PO .HS 10/26/23 12/04/24 History olanzapine 5 mg tablet 5 mg PO .qd PRN hallucinations 10/26/23 12/04/24 History paliperidone palmitate 234 mg/1.5 234 mg IM Q30D 10/26/23 12/04/24 History [facility] venlafaxine 150 mg 150 mg PO DAILY 10/26/23 12/04/24 History capsule,extended release 24 hr warfarin 5 mg tablet 5 mg PO DAILY 03/21/24 12/04/24 History gabapentin 400 mg capsule 600 mg PO TID 09/15/24 12/04/24 History Allergies Allergy/AdvReac Type Severity Reaction Status Date / Time hydromorphone (From Dilaudid) Allergy Mild itching Verified 09/26/24 07:43 Exam Constitutional Documenting provider has reviewed patient's vital signs: yes Common normals: no apparent distress, oriented x3, healthy appearing, alert and well nourished General appearance: cooperative [facility] Common normals: normocephalic, hearing grossly normal bilaterally and moist oral mucous membranes Head and scalp: normocephalic Eye Common normals: PERRL Pupil: PERRL Neck & C-Spine General: normal visual inspection Cervical spine: cervical ROM abnormal, pain with cervical ROM and cervical spine tenderness Other: sensation intact BUE strength 5/5 in BUE Chest Common normals: inspection of chest normal Respiratory Common normals: normal respiratory effort, no retractions and no use of accessory muscles Neuro Common normals: oriented x3 Sensorium/orientation: alert Psych Common normals: mental status grossly normal, thought process normal, cooperative, affect normal, speech normal and activity/motor behavior normal Speech: normal speech Thought process: normal thought process Results Additional Findings Additional findings: If on a controlled substance or opioids, I have checked an [place]AR[place] report on this patient and there are no aberrancies noted in the prescribing history.??If on a controlled substance or opioid a drug screen was completed and reviewed within the last year, and if there has not been a drug screen completed we ordered one today to monitor higher risk, state monitored pain medication use. As part of providing excellent, safe, comprehensive care, the following was completed at our patient's visit: 1. A medication reconciliation and review to ensure accurate knowledge of current/active medications, including asking our patients to inform us about any [id number] medications or herbal remedies/nutritional supplements/alternative remedies. 2. A review to specifically ensure our patients have had annual screening for screening for depression, screening for tobacco use, and screening for unhealthy alcohol use. For concerning screenings had a discussion with the patient, provided patient education, and recommended follow-up with primary care provider when appropriate. If patient noted with a risk of falling, they received education on strength, gait, and balance training to prevent future risk of falling. Portions of this note may have been carried over from the previous visit and updated as appropriate. Please note this office utilizes paper charting in addition to the electronic medical record. A list of current medications, vitals, and PMH is available there as the clinical staff outside of myself do not have access to [employer] charting during the clinic day operations. As part of providing quality comprehensive care the current medications, vitals, and PMH were reviewed in the paper chart. Assessment and Plan Assessment and Plan (1) Cervical spondylosis: (2) Chiari malformation type I: Plan The patient has had over 3 months of moderate to severe neck pain with functional impairment and inadequate response to conservative care including NSAIDS (unless there are contraindication such as concurrent blood thinners), multiple oral or topical pain medications, and home exercise program/physical therapy.? I have reviewed the imaging of the cervical spine and no red flags were identified.? The imaging reveals radiographic findings consistent with cervical spondylosis, ddd, and cervical stenosis The Oswestry Disability Index was completed, and the patient scored a 38%.? bilateral C3-4 C4-5 facet medial branch block x2 under fluoroscopy in consideration of RFA for facet mediated pain start tizanidine 2-4mg BID PRN pain/spasms/headaches continue HEP as tolerated, PT discharged patient as noted above shes not a candidate for PT due to chiari malformation continue tylenol prn, cannot take NSAIDs on coumadin f/u after each injection ?
== END 2025-04-05 13:24 ==
LOC: PM 13:24
PROVIDERS: PCP Family Medicine; Visit Provider Nurse Practitioner
DX: M47.812 Spondylosis without myelopathy or radiculopathy, cervical region (principal); G93.5 Compression of brain
CPT/HCPCS: G0463

== ENCOUNTER 2025-04-10 10:04 | Day surgery (SDC) | payer MEDICARE, MEDICAID, SELFPAY ==
--- OUTSIDE RECORDS SUMMARY | 2025-04-10 10:07 | XMS_ITS | Encounter Summary ---
Author Organization [facility] Address [address] [place] [address] Care Team Providers Care Pm Head Cook Name Role Phone Sharyn Bradford MD Primary Care Provider [phone] Source Comments In the event this information is protected by the Federal Confidentiality of Alcohol and Drug AbusePatient Records regulations: The Federal rules restrict any use of the information to criminally investigate or prosecute any alcohol or drug abuse patient.[facility] Encounter Details Date Type Department Care Team (Late st Contact Info) Description 05/04/2018 Get Medical Advice Gastroenterology [facility] [address] [phone] Dennis Gibson DO [facility] [address] [place] [address] RE: Upcoming Appointment Question Social History Tobacco [...] documented as of this encounter Care Teams Pm Head Cook Relationship Specialty Start Date End Date Sharyn Bradford MD [address] [place] [address] PCP - General 4/29/14 documented as of this encounter
--- OUTSIDE RECORDS SUMMARY | 2025-04-10 10:07 | XMS_ITS | Encounter Summary ---
Author Organization [facility] Address [address] [place] [address] Care Team Providers Care Filter Tank Operator Name Role Phone Sharyn Bradford MD Primary Care Provider [phone] Source Comments In the event this information is protected by the Federal Confidentiality of Alcohol and Drug AbusePatient Records regulations: The Federal rules restrict any use of the information to criminally investigate or prosecute any alcohol or drug abuse patient.[facility] Encounter Details Date Type Department Care Team (Late st Contact Info) Description 04/05/2018 Get Medical Advice [facility] [address] [phone] Dennis Gibson DO [facility] [address] [place] [address] RE: Test Result Question Social History Tobacco [...] documented as of this encounter Care Teams Filter Tank Operator Relationship Specialty Start Date End Date Sharyn Bradford MD [address] [place] [address] PCP - General 10/18/13 documented as of this encounter
--- OUTSIDE RECORDS SUMMARY | 2025-04-10 10:08 | XMS_ITS | Encounter Summary ---
Author Organization [facility] Address [address] [place] [address] Care Team Providers Care Commercial Real Estate Broker Name Role Phone Sharyn Bradford MD Primary Care Provider [phone] Source Comments In the event this information is protected by the Federal Confidentiality of Alcohol and Drug AbusePatient Records regulations: The Federal rules restrict any use of the information to criminally investigate or prosecute any alcohol or drug abuse patient.[facility] Encounter Details Date Type Department Care Team (Late st Contact Info) Description 03/23/2019 Patient Msg General Surgery [facility] [address] [phone] Provider, [facility] appointment Social History [...] No 03/13/2019 3:57 PM EDT ShiraMiguelangel harrington APRN.CLASSIFIED COPY CONTROL CLERK * Are you blind or do you have serious difficulty seeing, even when wearing glasses? Answer Date of Assessment Author No 03/13/2019 3:57 PM EDT ShiraMiguelangel harrington APRN.CLASSIFIED COPY CONTROL CLERK * Do you have serious difficulty walking or climbing stairs? Answer Date of Assessment Author No 03/13/2019 3:57 PM EDT ShiraMiguelangel harrington APRN.CLASSIFIED COPY CONTROL CLERK * Do you have difficulty dressing or bathing? Answer Date of Assessment Author No 03/13/2019 3:57 PM EDT ShiraMiguelangel harrington APRN.CLASSIFIED COPY CONTROL CLERK * Because of a physical, mental, or emotional condition, do you have difficulty doing errands alone such as visiting a doctor's office or shopping? Answer Date of Assessment Author No 03/13/2019 3:57 PM EDT Miguelangel Silva APRN.CLASSIFIED COPY CONTROL CLERK documented as of this encounter Mental Status * Because of a physical, mental, or emotional condition, do you have serious difficulty concentrating, remembering, or making decisions? Answer Entry Date Author No 03/13/2019 3:57 PM EDT Miguelangel Silva APRN.CLASSIFIED COPY CONTROL CLERK documented in this encounter Plan of Treatment [...] documented as of this encounter Care Teams Commercial Real Estate Broker Relationship Specialty Start Date End Date Sharyn Bradford MD [address] [place] [address] PCP - General 10/18/13 documented as of this encounter
--- OUTSIDE RECORDS SUMMARY | 2025-04-10 10:08 | XMS_ITS | Encounter Summary ---
Author Organization [facility] Address [address] [place] [address] Care Team Providers Care Supply Chain Engineer Name Role Phone Sharyn Bradford MD Primary Care Provider Source Comments In the event this information is protected by the Federal Confidentiality of Alcohol and Drug AbusePatient Records regulations: The Federal rules restrict any use of the information to criminally investigate or prosecute any alcohol or drug abuse patient.[facility] Encounter Details Date Type Department Care Team (Late st Contact Info) Description 07/20/2018 Patient Msg Pre Anesthesia [address] [place] [address] Provider, Ccf pre op instructions Social History [...] Assessment Author No 08/02/2014 1:39 PM SID StoneNissa harmon LPN * Are you blind or do you have serious difficulty seeing, even when wearing glasses? Answer Date of Assessment Author No 08/02/2014 1:39 PM Nissa Pollard LPN * Do you have serious difficulty walking or climbing stairs? Answer Date of Assessment Author No 08/02/2014 1:39 PM Nissa Pollard FUR DRY CLEANER HAND * Do you have difficulty dressing or bathing? Answer Date of Assessment Author No 08/02/2014 1:39 PM Nissa Pollard FUR DRY CLEANER HAND * Because of a physical, mental, or [...] Date Author No 08/02/2014 1:39 PM SID StoneNissa harmon LPN documented in this encounter Plan [...] documented as of this encounter Care Teams Supply Chain Engineer Relationship Specialty Start Date End Date Sharyn Bradford MD [address] [place] [phone] PCP - General 10/18/13 documented as of this encounter
--- OUTSIDE RECORDS SUMMARY | 2025-04-10 10:08 | XMS_ITS | Encounter Summary ---
Author Organization [facility] Address [address] [place] [address] Care Team Providers Care Surveillance Sensor Officer Name Role Phone Sharyn Bradford MD Primary Care Provider [phone] Source Comments In the event this information is protected by the Federal Confidentiality of Alcohol and Drug AbusePatient Records regulations: The Federal rules restrict any use of the information to criminally investigate or prosecute any alcohol or drug abuse patient.[facility] Encounter Details Date Type Department Care Team (Late st Contact Info) Description 04/06/2018 Patient Msg Gastroenterology [address] [phone] Provider, Ccf Re: your my chart message [...] Author No 08/02/2014 1:39 PM Nissa Pollard STREETCAR REPAIRER * Do you have serious difficulty walking or climbing stairs? Answer Date of Assessment Author No 08/02/2014 1:39 PM Nissa Pollard STREETCAR REPAIRER * Do you have difficulty dressing or bathing? Answer Date of Assessment Author No 08/02/2014 1:39 PM Nissa Pollard, STREETCAR REPAIRER * Because of a physical, mental, or [...] documented as of this encounter Care Teams Surveillance Sensor Officer Relationship Specialty Start Date End Date Sharyn Bradford MD [address] [place] [address] PCP - General 10/18/13 documented as of this encounter
--- OUTSIDE RECORDS SUMMARY | 2025-04-10 10:08 | XMS_ITS | Encounter Summary ---
Author Organization [facility] Address [address] [place] [address] Care Team Providers Care Profile Mill Operator Tape Control Name Role Phone Sharyn Bradford MD Primary Care Provider [phone] Source Comments In the event this information is protected by the Federal Confidentiality of Alcohol and Drug AbusePatient Records regulations: The Federal rules restrict any use of the information to criminally investigate or prosecute any alcohol or drug abuse patient.[facility] Encounter Details Date Type Department Care Team (Late st Contact Info) Description 03/24/2019 Patient Msg Medical Records [address] [place] [address] Provider, Ccf Prescribed Patient Education Video(s) Social [...] No 03/13/2019 3:57 PM EDT ShiraMiguelangel harrington, DUANE.DIAMOND POWDER TECHNICIAN * Are you blind or do you have serious difficulty seeing, even when wearing glasses? Answer Date of Assessment Author No 03/13/2019 3:57 PM EDT ShiraMiguelangel harrington, DUANE.DIAMOND POWDER TECHNICIAN * Do you have serious difficulty walking or climbing stairs? Answer Date of Assessment Author No 03/13/2019 3:57 PM EDT ShiraMiguelangel harrington, REGENERATION OPERATOR.DIAMOND POWDER TECHNICIAN * Do you have difficulty dressing or bathing? Answer Date of Assessment Author No 03/13/2019 3:57 PM EDT ShiraMiguelangel, DUANE.DIAMOND POWDER TECHNICIAN * Because of a physical, mental, or emotional condition, do you have difficulty doing errands alone such as visiting a doctor's office or shopping? Answer Date of Assessment Author No 03/13/2019 3:57 PM EDT Miguelangel Silva APRN.DIAMOND POWDER TECHNICIAN documented as of this encounter Mental Status * Because of a physical, mental, or emotional condition, do you have serious difficulty concentrating, remembering, or making decisions? Answer Entry Date Author No 03/13/2019 3:57 PM EDT Miguelangel Silva, REGENERATION OPERATOR.DIAMOND POWDER TECHNICIAN documented in this encounter Plan of [...] documented as of this encounter Care Teams Profile Mill Operator Tape Control Relationship Specialty Start Date End Date Sharyn Bradford MD [address] [place] [address] PCP - General 10/18/13 documented as of this encounter
--- OUTSIDE RECORDS SUMMARY | 2025-04-10 10:09 | XMS_ITS | Encounter Summary ---
Author Organization [facility] Address [address] [place] [address] Care Team Providers Care Mortgage Processing Manager Name Role Phone Sharyn Bradford MD Primary Care Provider [phone] Source Comments In the event this information is protected by the Federal Confidentiality of Alcohol and Drug AbusePatient Records regulations: The Federal rules restrict any use of the information to criminally investigate or prosecute any alcohol or drug abuse patient.[facility] Encounter Details Date Type Department Care Team (Late st Contact Info) Description 12/15/2018 Patient Msg BMI [facility] REJ [address] [place], [place] [phone] Uyen Suazo, RD [address] [phone] RE: Appointment Cancellation Request Social History Tobacco [...] documented as of this encounter Care Teams Mortgage Processing Manager Relationship Specialty Start Date End Date Sharyn Bradford MD [address] [place] [address] PCP - General 10/18/13 documented as of this encounter
--- OUTSIDE RECORDS SUMMARY | 2025-04-10 10:09 | XMS_ITS | Clinical Summary ---
Author Organization [facility] Address [address] [facility], [address] [place] [address] Care Team Providers Care Cutting Table Operator Name Role Phone Sharyn Bradford MD Primary Care Provider [phone] Allergies Active Allergy Reactions Criticality Noted Date [...] drink = 0.6 oz pur e alcohol) [facility] Utilities Answer Date Recorded In the past 12 months has e [employer], [employer], oil, or water [employer] threatened to shut off services in your [...] How often do you attend chur or alevism services? More than 4 times per year 10/29/2023 Do you belong to any clubs o r organizations such as pentecostalism groups, unions, fraternal or athletic groups, or [...] place to sleep or slept in a prison (including now)? No 10/29/2023 Food Insecurity Answer [...] patient's age to complete this topic Insurance [facility] [employer] MEDICARE MEDICAID [place] [address] [place] [address] [facility] Advance Directives * Full Code (Latest Code Status on File) Date Activated Date Inactivated Comments 10/29/2023 10:29 AM 10/31/2023 5:25 PM Care Teams Cutting Table Operator Relationship Specialty Start Date End Date Sharyn Bradford MD [address] [place] [address] PCP - General Family Medicine 10/30/23
--- OUTSIDE RECORDS SUMMARY | 2025-04-10 10:09 | XMS_ITS | Encounter Summary ---
Author Organization Address [address] [place] [address] Care Team Providers Care Sheep Farm Worker Name Role Phone Sharyn Bradford MD Primary Care Provider [phone] Source Comments In the event this information is protected by the Federal Confidentiality of Alcohol and Drug AbusePatient Records regulations: The Federal rules restrict any use of the information to criminally investigate or prosecute any alcohol or drug abuse patient. Encounter Details Date Type Department Care Team (Late st Contact Info) Description 08/06/2018 Get Medical Advice [facility]astroenterology [facility] [address] [id number] Dennis Gibson DO [facility] [address] [place] [address] RE: Non-Urgent Medical Question Social History Tobacco [...] documented as of this encounter Care Teams Sheep Farm Worker Relationship Specialty Start Date End Date Sharyn Bradford MD [address] [place] [address] PCP - General 10/18/13 documented as of this encounter
--- OUTSIDE RECORDS SUMMARY | 2025-04-10 10:09 | XMS_ITS | Encounter Summary ---
Author Organization [facility] Address [address] [place] [address] Care Team Providers Care Transportation Supervisor Name Role Phone Sharyn Bradford MD Primary Care Provider [phone] Source Comments In the event this information is protected by the Federal Confidentiality of Alcohol and Drug AbusePatient Records regulations: The Federal rules restrict any use of the information to criminally investigate or prosecute any alcohol or drug abuse patient.[facility] Encounter Details Date Type Department Care Team (Late st Contact Info) Description 03/24/2019 Patient Msg Medical Records [address] [place] [address] Provider, Ccf Prescribed Patient Education Video(s) Social [...] No 03/13/2019 3:57 PM EDT ShiraMiguelangel harrington, DUANE.CHIEF II DISPATCHER * Are you blind or do you have serious difficulty seeing, even when wearing glasses? Answer Date of Assessment Author No 03/13/2019 3:57 PM EDT ShiraMiguelangel harrington, DUANE.CHIEF II DISPATCHER * Do you have serious difficulty walking or climbing stairs? Answer Date of Assessment Author No 03/13/2019 3:57 PM EDT ShiraMiguelangel harrington, VIDEO TAPE DUPLICATOR.CHIEF II DISPATCHER * Do you have difficulty dressing or bathing? Answer Date of Assessment Author No 03/13/2019 3:57 PM EDT ShiraMiguelangel, DUANE.CHIEF II DISPATCHER * Because of a physical, mental, or emotional condition, do you have difficulty doing errands alone such as visiting a doctor's office or shopping? Answer Date of Assessment Author No 03/13/2019 3:57 PM EDT Miguelangel Silva APRN.CHIEF II DISPATCHER documented as of this encounter Mental Status * Because of a physical, mental, or emotional condition, do you have serious difficulty concentrating, remembering, or making decisions? Answer Entry Date Author No 03/13/2019 3:57 PM EDT Miguelangel Silva, VIDEO TAPE DUPLICATOR.CHIEF II DISPATCHER documented in this encounter Plan of Treatment [...] documented as of this encounter Care Teams Transportation Supervisor Relationship Specialty Start Date End Date Sharyn Bradford MD [address] [place] [address] PCP - General 10/18/13 documented as of this encounter
--- OUTSIDE RECORDS SUMMARY | 2025-04-10 10:09 | XMS_ITS | Encounter Summary ---
Author Organization [facility] Address [address] [place] [address] Care Team Providers Care Pinmaker Name Role Phone Sharyn Bradford MD Primary Care Provider [phone] Source Comments In the event this information is protected by the Federal Confidentiality of Alcohol and Drug AbusePatient Records regulations: The Federal rules restrict any use of the information to criminally investigate or prosecute any alcohol or drug abuse patient.[facility] Encounter Details Date Type Department Care Team (Late st Contact Info) Description 11/18/2018 [place] [address] Betty Last, RN Instructions for procedure Social [...] documented as of this encounter Care Teams Pinmaker Relationship Specialty Start Date End Date Sharyn Bradford MD [address] [place] [address] PCP - General 10/18/13 documented as of this encounter
--- OUTSIDE RECORDS SUMMARY | 2025-04-10 10:09 | XMS_ITS | Encounter Summary ---
Author Organization [facility] Address [address] [place] [address] Care Team Providers Care Patrol Judge Name Role Phone Sharyn Bradford MD Primary Care Provider [phone] Source Comments In the event this information is protected by the Federal Confidentiality of Alcohol and Drug AbusePatient Records regulations: The Federal rules restrict any use of the information to criminally investigate or prosecute any alcohol or drug abuse patient.[facility] Encounter Details Date Type Department Care Team (Late st Contact Info) Description 11/17/2018 Patient Msg General Surgery [facility] [address] [phone] Roxie Sanchez MA SECURITY SCREENER/DIETITIO N APPT Social History Tobacco Use Types [...] documented as of this encounter Care Teams Patrol Judge Relationship Specialty Start Date End Date Sharyn Bradford MD [address] [place] [phone] PCP - General 10/18/13 documented as of this encounter
--- OUTSIDE RECORDS SUMMARY | 2025-04-10 10:09 | XMS_ITS | Encounter Summary ---
Author Organization [facility] Address [address] [place] [address] Care Team Providers Care Steel Sampler Name Role Phone Sharyn Bradford MD Primary Care Provider [phone] Source Comments In the event this information is protected by the Federal Confidentiality of Alcohol and Drug AbusePatient Records regulations: The Federal rules restrict any use of the information to criminally investigate or prosecute any alcohol or drug abuse patient.[facility] Encounter Details Date Type Department Care Team (Late st Contact Info) Description 11/05/2020 Patient Msg General Surgery [facility] [address] [place] [address] Provider, Ccf RE:schedule Social History Tobacco Use [...] N ot on file 05/26/2020 Data from: https://www.neighborhoodatlas.medicine.[facility].edu/. Last address used for calculation [...] documented as of this encounter Care Teams Steel Sampler Relationship Specialty Start Date End Date Sharyn Bradford MD [address] [place] [phone] PCP - General 10/18/13 documented as of this encounter
--- OUTSIDE RECORDS SUMMARY | 2025-04-10 10:09 | XMS_ITS | Clinical Summary ---
Author Organization [facility] Address [address] [place] [address] Care Team Providers Care Security Vehicle Patrol Officer Name Role Phone Unavailable Primary Care Provider [...]
--- OUTSIDE RECORDS SUMMARY | 2025-04-10 10:09 | XMS_ITS | Encounter Summary ---
Author Organization [facility] Address [address] [place] [address] Care Team Providers Care Water Restoration Technician Name Role Phone Sharyn Bradford MD Primary Care Provider [phone] Source Comments In the event this information is protected by the Federal Confidentiality of Alcohol and Drug AbusePatient Records regulations: The Federal rules restrict any use of the information to criminally investigate or prosecute any alcohol or drug abuse patient.[facility] Encounter Details Date Type Department Care Team (Late st Contact Info) Description 03/30/2019 Patient Msg Neurology [address] [phone] Korin Easley MD [address] [place] [address] RE: Appointment Cancellation Request Social History [...] documented as of this encounter Care Teams Water Restoration Technician Relationship Specialty Start Date End Date Sharyn Bradford MD [address] [place] [address] PCP - General 10/18/13 documented as of this encounter
--- OUTSIDE RECORDS SUMMARY | 2025-04-10 10:09 | XMS_ITS | Encounter Summary ---
Author Organization [facility] Address [address] [place] [address] Care Team Providers Care Motor Vehicle Assembler Name Role Phone Sharyn Bradfodr MD Primary Care Provider [phone] Source Comments In the event this information is protected by the Federal Confidentiality of Alcohol and Drug AbusePatient Records regulations: The Federal rules restrict any use of the information to criminally investigate or prosecute any alcohol or drug abuse patient.[facility] Encounter Details Date Type Department Care Team (Late st Contact Info) Description 12/22/2018 Patient Msg Medical Records [address] [place] [address] Provider, Ccf Prescribed Patient Education Video(s) Social [...] documented as of this encounter Care Teams Motor Vehicle Assembler Relationship Specialty Start Date End Date Sharyn Bradford MD [address] [place] [address] PCP - General 10/18/13 documented as of this encounter
--- OUTSIDE RECORDS SUMMARY | 2025-04-10 10:09 | XMS_ITS | Encounter Summary ---
Author Organization [facility] Address [address] [place] [address] Care Team Providers Care Cloud Engagement Partner Name Role Phone Sharyn Bradford MD Primary Care Provider [phone] Source Comments In the event this information is protected by the Federal Confidentiality of Alcohol and Drug AbusePatient Records regulations: The Federal rules restrict any use of the information to criminally investigate or prosecute any alcohol or drug abuse patient.[facility] Encounter Details Date Type Department Care Team (Late st Contact Info) Description 06/05/2020 Get Medical Advice General Surgery [facility] [address] [place] [address] Anshu Cheney MD [address] [place] [address] Test Result Question Social History [...] N ot on file 05/26/2020 Data from: https://www.neighborhoodatlas.medicine.[facility].edu/. Last address used for calculation Not [...] documented as of this encounter Care Teams Cloud Engagement Partner Relationship Specialty Start Date End Date Sharyn Bradford MD [address] [place] [address] PCP - General 10/18/13 documented as of this encounter
--- OUTSIDE RECORDS SUMMARY | 2025-04-10 10:10 | XMS_ITS | Encounter Summary ---
Author Organization [facility] Address [address] [place] [address] Care Team Providers Care Flatwork Tier Name Role Phone Sharyn Bradford MD Primary Care Provider Source Comments In the event this information is protected by the Federal Confidentiality of Alcohol and Drug AbusePatient Records regulations: The Federal rules restrict any use of the information to criminally investigate or prosecute any alcohol or drug abuse patient.[facility] Encounter Details Date Type Department Care Team (Late st Contact Info) Description 04/12/2019 Get Medical Advice General Surgery [facility] [address] [place] [address] Anshu Cheney MD [address] [place] [address] Non-Urgent Medical Question Social History [...] documented as of this encounter Care Teams Flatwork Tier Relationship Specialty Start Date End Date Sharyn Bradford MD [address] [place] [address] PCP - General 10/18/13 documented as of this encounter
--- OUTSIDE RECORDS SUMMARY | 2025-04-10 10:10 | XMS_ITS | Encounter Summary ---
Author Organization [facility] Address [address] [place] [address] Care Team Providers Care Weave Defect Charting Clerk Name Role Phone Sharyn Bradford MD Primary Care Provider [phone] Source Comments In the event this information is protected by the Federal Confidentiality of Alcohol and Drug AbusePatient Records regulations: The Federal rules restrict any use of the information to criminally investigate or prosecute any alcohol or drug abuse patient.[facility] Encounter Details Date Type Department Care Team (Late st Contact Info) Description 04/15/2019 Patient Msg Colorectal Surgery [address] [place] [address] Mary Miranda, PhD [address] [place] [address] RE: Appointment Cancellation Request Social [...] documented as of this encounter Care Teams Weave Defect Charting Clerk Relationship Specialty Start Date End Date Sharyn Bradford MD [address] [place] [address] PCP - General 10/18/13 documented as of this encounter
--- OUTSIDE RECORDS SUMMARY | 2025-04-10 10:10 | XMS_ITS | Encounter Summary ---
Author Organization [facility] Address [address] [place] [address] Care Team Providers Care Hospital Aide Name Role Phone Sharyn Bradford MD Primary Care Provider [phone] Source Comments In the event this information is protected by the Federal Confidentiality of Alcohol and Drug AbusePatient Records regulations: The Federal rules restrict any use of the information to criminally investigate or prosecute any alcohol or drug abuse patient.[facility] Encounter Details Date Type Department Care Team (Late st Contact Info) Description 01/26/2019 Patient Msg Pre Anesthesia [address] [place], [place] [phone] Provider, Ccf Please read and call back [...] No 12/27/2018 6:21 PM EDT Alex Martinez APRN.ELECTRICIAN BUS * Are you blind or do you have serious difficulty seeing, even when wearing glasses? Answer Date of Assessment Author No 12/27/2018 6:21 PM EDT Alex Martinez APRN.ELECTRICIAN BUS * Do you have serious difficulty walking or climbing stairs? Answer Date of Assessment Author No 12/27/2018 6:21 PM EDT Alex Martinez APRN.ELECTRICIAN BUS * Do you have difficulty dressing or bathing? Answer Date of Assessment Author No 12/27/2018 6:21 PM EDT Alex Martinez APRN.ELECTRICIAN BUS * Because of a physical, mental, or emotional condition, do you have difficulty doing errands alone such as visiting a doctor's office or shopping? Answer Date of Assessment Author No 12/27/2018 6:21 PM EDT Alex Martinez APRN.ELECTRICIAN BUS documented as of this encounter Mental Status * Because of a physical, mental, or emotional condition, do you have serious difficulty concentrating, remembering, or making decisions? Answer Entry Date Author No 12/27/2018 6:21 PM EDT Alex Martinez APRN.ELECTRICIAN BUS documented in this encounter Plan of Treatment [...] as of this encounter Care Teams Hospital Aide Relationship Specialty Start Date End Date Sharyn Bradford MD [address] [place] [address] PCP - General 10/18/13 documented as of this encounter
--- OUTSIDE RECORDS SUMMARY | 2025-04-10 10:11 | XMS_ITS | Encounter Summary ---
Author Organization [facility] Address [address] [place] [address] Care Team Providers Care Biofuels Technology Manager Name Role Phone Sharyn Bradford MD Primary Care Provider [phone] Source Comments In the event this information is protected by the Federal Confidentiality of Alcohol and Drug AbusePatient Records regulations: The Federal rules restrict any use of the information to criminally investigate or prosecute any alcohol or drug abuse patient.[facility] Encounter Details Date Type Department Care Team (Late st Contact Info) Description 11/19/2022 Patient Msg General Surgery [facility] [address] [place] [address] Anshu Cheney MD [address] [place] [address] Appointment Request Social History Tobacco [...] N ot on file 05/26/2020 Data from: https://www.neighborhoodatlas.medicine.[facility].edu/. Last address used for calculation Not [...] on filedocumented in this encounter Care Teams Biofuels Technology Manager Relationship Specialty Start Date End Date Sharyn Bradford MD [address] [place] [address] PCP - General 10/18/13 documented as of this encounter
--- OUTSIDE RECORDS SUMMARY | 2025-04-10 10:11 | XMS_ITS | Encounter Summary ---
Author Organization [facility] Address [address] [place] [address] Phone Care Team Providers Care Cath Lab Tech Name Role Phone Sharyn Bradford MD Primary Care Provider [phone] Encounter Details Date Type Department Care Team (Late st Contact Info) Description 01/20/2023 Scanned Document [facility] [address] [place] [address] Conversion, Onbase Social History Tobacco Use Types [...] on filedocumented in this encounter Care Teams Cath Lab Tech Relationship Specialty Start Date End Date Sharyn Bradford MD [address] [place] [address] PCP - General 03/02/20 documented as of this encounter
--- OUTSIDE RECORDS SUMMARY | 2025-04-10 10:11 | XMS_ITS | Encounter Summary ---
Author Organization [facility] Address [address] [place] [address] Care Team Providers Care Shank Stitcher Name Role Phone Sharyn Bradford MD Primary Care Provider [phone] Source Comments In the event this information is protected by the Federal Confidentiality of Alcohol and Drug AbusePatient Records regulations: The Federal rules restrict any use of the information to criminally investigate or prosecute any alcohol or drug abuse patient.[facility] Encounter Details Date Type Department Care Team (Late st Contact Info) Description 09/16/2023 Patient Msg General Surgery [facility] [address] [place] [address] Anshu Cheney MD [address] [place] [address] Appointment Request Social History Tobacco [...] ot on file 05/26/2020 Data from: https://www.neighborhoodatlas.medicine.[facility].edu/. Last address used for calculation Not [...] on filedocumented in this encounter Care Teams Shank Stitcher Relationship Specialty Start Date End Date Sharyn Bradford MD [address] [place] [address] PCP - General 10/18/13 documented as of this encounter
--- OUTSIDE RECORDS SUMMARY | 2025-04-10 10:11 | XMS_ITS | Encounter Summary ---
Author Organization [facility] Address [address] [place] [address] Care Team Providers Care Mill Helper Name Role Phone Sharyn Bradford MD Primary Care Provider [phone] Source Comments In the event this information is protected by the Federal Confidentiality of Alcohol and Drug AbusePatient Records regulations: The Federal rules restrict any use of the information to criminally investigate or prosecute any alcohol or drug abuse patient.[facility] Encounter Details Date Type Department Care Team (Late st Contact Info) Description 04/03/2019 Patient Msg Nutrition Therapy [facility] [address] [place] [address] [facility] [address] [place], [place] [id number] RE: Appointment Cancellation Request Social History Tobacco [...] documented as of this encounter Care Teams Mill Helper Relationship Specialty Start Date End Date Sharyn Bradford MD [address] [place] [address] PCP - General 10/18/13 documented as of this encounter
--- OUTSIDE RECORDS SUMMARY | 2025-04-10 10:11 | XMS_ITS | Encounter Summary ---
Author Organization [facility] Address [address] [place] [address] Care Team Providers Care Supervisor Film Processing Name Role Phone Sharyn Bradford MD Primary Care Provider [phone] Source Comments In the event this information is protected by the Federal Confidentiality of Alcohol and Drug AbusePatient Records regulations: The Federal rules restrict any use of the information to criminally investigate or prosecute any alcohol or drug abuse patient.[facility] Encounter Details Date Type Department Care Team (Late st Contact Info) Description 08/27/2019 Patient Msg Neurosurgery [address] [place] [phone] [place] [address] [place] [address] RE: Appointment Cancellation Request Social History Tobacco [...] documented as of this encounter Care Teams Supervisor Film Processing Relationship Specialty Start Date End Date Sharyn Bradford MD [address] [place] [address] PCP - General 10/18/13 documented as of this encounter
--- OUTSIDE RECORDS SUMMARY | 2025-04-10 10:11 | XMS_ITS | Clinical Summary ---
Author Organization [facility] Address [address] [place] [address] Phone Care Team Providers Care Immigration Guard Name Role Phone Sharyn Bradford MD Primary Care Provider [phone] Allergies Active Allergy Reactions Criticality Noted Date [...] - 03/15/2025 11:59 PM EDT Hospital Encounter [address] [address] Pacemaker; Sick sinus syndrome (Multi) [...] Rita Still MD CV IMPLANTABLE CARDIAC DEVICE HI OCEDURES Final Result * (ABNORMAL) Comprehensive Metabolic Panel (06/20/2020 7:23 AM EST) Glucose 87 74 - 99 mg/dL [facility] Sodium 141 136 - 145 mmol/L [facility] Potassium 3.7 3.5 - 5.3 mmol/L [facility] Chloride 108(H) 98 - 107 mmol/L [facility] Bicarbonate 23 21 - 32 mmol/L [facility] Anion Gap 14 10 - 20 mmol/L [facility] Urea Nitrogen 16 6 - 23 mg/dL [facility] Creatinine 0.79 0.50 - 1.05 mg/dL [facility] GLOMERULAR FILTRATION RATE-NON >60 >60 mL/min/1.7 3m2 [facility] GLOMERULAR FILTRATION RATE- >60 >60 mL/min/1.7 2 [facility] Comment: CALCULATIONS OF ESTIMATED GFR ARE PERFORMED USING THE MDRD STUDY EQUATION FOR THE IDMS-TRACEABLE CREATININE METHODS. CLIN CHEM 2007;53:766-72 Calcium 9.2 8.6 - 10.3 mg/dL [facility] Albumin 4.0 3.4 - 5.0 g/dL [facility] Alkaline Phosphatase 82 33 - 110 U/L [facility] Total Protein 7.1 6.4 - 8.2 g/dL [facility] AST 20 9 - 39 U/L [facility] Total Bilirubin 0.3 0.0 - 1.2 mg/dL [facility] ALT (SGPT) 10 7 - 45 U/L [facility] Comment: Patients treated with Sulfasalazine may generate falsely decreased results for ALT. 06/20/2020 7:23 AM EST 06/20/2020 7:27 AM EST Sirena Ma PA-C LAB BLOOD ORDERABLES F inal Result [facility] from Last 3 Months or Most Recently Relevant to Health Maintenance Insurance [employer] MEDICARE ASSURE MEDICAID [facility] [address] [phone] [employer] MED[employer]ARE ASSURE MEDICAID Care Teams Immigration Guard Relationship Specialty Start Date End Date Sharyn Bradford MD [facility] [facility] [place] [address] PCP - General 03/02/20
--- OUTSIDE RECORDS SUMMARY | 2025-04-10 10:11 | XMS_ITS | Encounter Summary ---
Author Organization [facility] Address [address] [place] [address] Phone Care Team Providers Care Waste Treatment Operator Name Role Phone Sharyn Bradford MD Primary Care Provider [phone] Reason for Visit * Reason Comments Med Refill Encounter Details Date Type Department Care Team ([facility] st Contact Info) Description 01/30/2024 Refill [facility] [address] [facility] [address] [place] [address] Rita Still MD [address] [facility] [address] [place] [address] Social History Tobacco Use Types Packs/Day Years [...] on filedocumented in this encounter Care Teams Waste Treatment Operator Relationship Specialty Start Date End Date Sharyn Bradford MD [address] [place] [address] [place] [address] PCP - General 03/02/20 documented as of this encounter
--- OUTSIDE RECORDS SUMMARY | 2025-04-10 10:11 | XMS_ITS | Clinical Summary ---
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 Last address used for calculation Not [...] history exists Medical Devices Implanted Type Area Advertising Sales Consultant Device Identifier Shelf Expiration Date Model / Serial / Lot St Nini [id number] Implanted:Qty: 1 on 04/11/[address] [employer]I 8TC / / St Nini [id number]/52 Implanted:Qty: 1 on 04/11/[address] NINI 8TC / / St Nini Assurity Mri [id number] Implanted:Qty: 1 on 04/11/[address] NINI [id number] / / [id number] Assurity [id number] Implanted:04/11 (Quantity not on file) Pacemaker ST NINI 2272 Assurity MRI / [id number] / Tray Port-A-Cath Ii 7.8fr 2.6mm 1.6mm Polysulfone Titanium Polyurethane 76 - [id number] Implanted:07/22 at [facility] (Quantity not on file) Port Right: Chest Wall [facility] [employer] 05/25/2022 21-4471-24 / / [id number] Corflo Feeding Tube 10f 60cm Implanted:Qty: 1 on 08/17/2018 at [facility] Tube Right: Nose [employer] 05/22/2023 [id number] / / [id number] Kit Ponsky 20fr Silicone Peg Pull Deluxe Kit Non Safety Sterile - [id number] Implanted:01/31 at [facility] (Quantity not on file) Tube Left: Abdomen [employer] 03/19/2020 [id number] / / [id number] Tube Claudio Secur-Migue 20fr Standard J Silicone Jejunostomy Trimmable Distal - [id number] Implanted:04/20 at [facility] (Quantity not on file) Tube Left: Abdomen [facility] 10/21/2019 0200-20 / / [id number] Tube Claudio Secur-Migue 18fr Standard Silicone Natural Rubber Jejunostomy - [id number] Implanted:07/11 at [facility] (Quantity not on file) Tube Left: Abdomen [facility] 10/20/2020 0200-18 / / [id number] Kit Endovive 20fr Xylocaine Silicone Peg Pull Method Ampule Trocar Cannula - [id number] Implanted:10/24 at [facility] (Quantity not on file) Tube N/A: Abdomen [employer] ENDOSCOPY 12/19/2020 6646 / / [id number] [place] [address] MEDICARE Member Subscriber Plan / Payer (Ef fective 2020-Present) Name:Maricarmen Tran Member ID:[id number] Relation to Subscriber:Self Name:Maricarmen Tran Subscriber ID:[id number] Payer ID:Not on file Group ID:Not on file Type:Medicare Address: [facility] [place] [id number] [place]ICAID [place] Advance Directives * Full Code [...] Code Order Discussed With: Patient Care Teams Licensed Plumber Relationship Specialty Start Date End Date Sharyn Bradford MD [address] [place] [address] PCP - General 10/18/13
--- OUTSIDE RECORDS SUMMARY | 2025-04-10 10:11 | XMS_ITS | Encounter Summary ---
Author Organization [facility] Address [address] [place] [address] Care Team Providers Care Supervisor Of Officials Name Role Phone Sharyn Bradford MD Primary Care Provider [phone] Source Comments In the event this information is protected by the Federal Confidentiality of Alcohol and Drug AbusePatient Records regulations: The Federal rules restrict any use of the information to criminally investigate or prosecute any alcohol or drug abuse patient.[facility] Encounter Details Date Type Department Care Team (Late st Contact Info) Description 06/17/2019 Patient Msg Nutrition Therapy [id number] Lea Beyer, [address] [place] [phone] RE: Appointment Cancellation Request Social History Tobacco [...] as of this encounter Care Teams Supervisor Of Officials Relationship Specialty Start Date End Date Sharyn Bradford MD [address] [place] [address] PCP - General 10/18/13 documented as of this encounter
--- OUTSIDE RECORDS SUMMARY | 2025-04-10 10:16 | XMS_ITS | CCD ---
Author Organization [facility] Care Team Providers Care Track Repair Supervisor Name Role Phone Unavailable Primary Care Provider [...] Attending Provider DO Michael Cerda Emergency Provider [phone] DO Delaney Carlisle Attending Provider [phone] MD Viktor Sotelo Primary Care Provider DO Urbano Palma Attending Provider [phone] MD Eduardo Swain Admit Provider [phone] MD Eduardo Swain Attending Provider Unavailable Unavailable MD Dustin Cody Admit Provider MD Dustin Cody Attending Provider VIKTOR SOTELO Primary Care Physician MD Viktor Sotelo Primary Care Provider [phone] DO Urbano Palma Attending Provider [phone] Parminderlorene DO Michael Murrieta Emergency Provider [phone] MD Eduardo Swain Admit Provider MD Eduardo Swain Attending Provider [phone] MD Dustin Cody Admit Provider MD Dustin Cody Attending Provider ViscDO Urbano lazar Admit Provider DO Raffaele Ellsworth Emergency Provider MD Toribio Cerda Admit Provider MD Toribio Cerda Attending Provider MD Viktor oStelo Primary Care Provider Louie, DO Clement Attending Provider [phone] Parminderlorene DO Michael Murrieta Emergency Provider DUANE Cortez Emergency Provider DO Keven Florentino Emergency Provider [phone] CANDICE .KRISTA Admitting Unavailable KRISTA ANTONIO Consulting [...] Jennings Other Provider DUANE Paiz Other Provider [phone] DO Mahad Mandel Other Provider MD Luciano Pedro Other Provider DO Gerry Noble Other Provider MD Mike Smart Other Provider [phone] MD Marylu Kemp Other Provider Donny ANP- Afshan Other Provider MD Faby Watts Other Provider [phone] MD Mitesh Hoffman Other Provider MD Sintia Gan Other Provider MD Siobhan Zuniga Other Provider DO Dennis Espinoza Other Provider [phone] MD Dawson Branham Other Provider MD Yossi Peterson Other Provider Glynn, CONING MACHINE OPERATOR-C Gretta Helms Other Provider MD Yonny Bazan Other Provider MD Trace Morataya Other Provider MD Dimitris Joe Other Provider DO Verona Waterman Other Provider DO All Bloom Other Provider DO Joe Holland Other Provider DUANE Roman Other Provider DO Rosendo Holland Other Provider MD Harriet Andrade Other Provider DUANE Mcnair Other Provider DUANE Montana Other Provider [phone] Shahida, BRANDIE Hurtado Other Provider Unavailable MD Viktor Sotelo Primary Care Provider MD Toribio Cerda Admit Provider MD Toribio Cerda Attending Provider Niles Ke Emergency Provider MD Eduardo Swain Admit Provider MD Eduardo Swain Attending Provider MD Michael Viveros Attending Provider [phone] Sanchez, Dr. Viktor Pack Primary Care Unav [...] Admitting Unavailable MARKER, SUJATA Referring Unavailable TONYA JACOSB Consulting Unavailable GILBERTO LOCKHART Consulting Unavailable RAYMOND ORTIZ Consulting Unavailable MD Viktor Sotelo Primary Care Provider MD Nimesh Cerda Attending Provider Viktor Sotelo MD Primary Care Provider Sanchez PATINO, Viktor Leone Primary Care Provider [phone] Estela Chung PA-C Attending Provider Zaida PATINO, Nimesh Attending Provider [phone] Guille PATINO, Michael Attending Provider Viktor Sotelo MD Primary Care Provider Michael Viveros MD Attending Provider Zaida PATINO, Nimesh Attending Provider [phone] Gijuju PATINO, Andri Attending Provider Gijuju PATINO, Andrius Vytautas Attending Unavailable Giedrareyna PATINO, Andrius Vytautas Attending Unavailable Alis PATINO, Andrius Vytautas Attending Unavailable Gisteverareyna PATINO, Andrius Vytautas Attending Unavailable Viktor Sotelo MD Primary Care Provider [phone] Nimesh Cerda MD Attending Provider [phone] Gaurav Oliver MD Attending Provider Michael VIVEROS Referring Unavailable ESTELA CHUNG Attending Unavailable ESTELA CHUNG Attending Unavailable Michael VIVEROS Admitting Unavailable Michael VIVEROS Attending Unavailable Michael VIVEROS Referring Unavailable ESTELA CHUNG Attending Unavailable ESTELA CHUNG Attending Unavailable NE, RITA J Referring Unavailable SOTELO, VIKTOR E Primary Care Unavailable NE, RITA J Referring Unavailable SOTELO, VIKTOR E Primary Care Unavailable NE, RITA J Referring Unavailable SOTELO, VIKTOR E Primary Care Unavailable NE, RITA J Referring Unavailable SOTELO, VIKTOR E Primary Care Unavailable Sotelo, Viktor E Primary Care Unavailable Nimesh Cerda Admitting Unavailab Nimesh Kerns Attending Unavailab Gaurav Abebe Admitting Unavailable Gaurav Oliver Attending Unavailable Sotelo, Viktor E Primary Care Unavailable Michael Viveros Attending Unavailable Viktor Sotelo Primary Care Unavailable Michael Viveros Admitting Unavailable Viktor Sotelo Primary Care Unavailable Giedraitis, Andrius Admitting Unavailable Giedraitis, Andrius Attending Unavailable Giedraitis, Andrius Admitting Unavailable Giedraitis, Andrius Attending Unavailable Sanchez, Viktor E Primary Care Unavailable Viktor Sotelo E Primary Care Unavailable Sheldon, Estela E Admitting Unavailable SheldonMartha engleEstela E Attending Unavailable Allergies Allergy Classification Reported Allergen(s) Allergy Type Date of Onset Reaction(s) Facility (20 sources) HYDROmorphone; 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: [Dilaudid] Drug Allergy 9 Itching (finding), Unknown (qualifier value), Itching, Unknown [facility] (2 sources) HYDROmorphone Drug Allergy 9 Itching [facility] (19 sources) HYDROmorphone; 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: [HYDROmorphone] Drug Allergy 9 Itching [facility] (1 source) HYDROmorphone Drug Allergy [facility] (1 source) Fluarix 5729-0486 (PF) Drug allergy (disorder) 2 [facility] Medications Current Medications Medication Drug [...] 2 tab(s), Refills(s) 0, Pharmacy: [facility]/pharmacy #[id number], 167, cm, 04/28/23 10:12:00 EST, Height/Length Dosing, 111, kg, 04/28/23 10:12:00 EST, Weight Dosing Start Date: 06/02/24 Status: Ordered Start: 03-03-2019 End: 03-05-2019 take [id number] mg by mouth every twelve hours Ciprofloxacin [...] 2 cap(s), Refills(s) 0, Pharmacy: [facility]/pharmacy #[id number], 167, cm, 09/03/22 13:32:00 [...] Comment on above: Take 1 capsule by [facility] once daily. LORazepam 1 mg oral [...] Discontinued 100 MG PO Twice daily 8 December 11, 2021 12:00am January 20, 2022 [...] 2019 1:00am February 18, 2020 5:44pm Vit No.432-Hphy-Spkls ( Vitamin) 27 mg iron- 800 mcg Tablet (20 sources) Start: 12-11-2021 End: 09-03-2022 take 1 tablet by mouth once daily Vit No.950-Cjyp-Bmtfm ( Vitamin) 27 mg iron- 800 mcg Tablet Discontinued 1 TAB PO Daily December 10, 2021 11:00pm September 03, 2022 6:39pm Start: 12-11-2021 End: 09-03-2022 take 1 tablet by mouth once daily Vit No.170-Crfa-Xvgug ( Vitamin) 27 mg iron- 800 mcg Tablet Discontinued 1 TAB PO Daily December 11, 2021 12:00am September 03, 2022 7:39pm Start: 12-11-2021 take 1 tablet by tejas th once daily Vit No.933-Dftv-Chdon ( Vitamin) 27 mg iron- 800 mcg Tablet Active 1 TAB PO Daily December 10, 2021 11:00pm Start: 12-11-2021 take 1 tablet by tejas th once daily Vit No.195-Wraw-Kphtk ( Vitamin) 27 mg iron- 800 mcg [...] 12.5 mg supposi tory Discontinued 12.5 MG LA Q6H as needed for Nausea And Vomiting [...] 1 tablet by mouth twice daily Pyridostigmine [place] 60 mg tablet Discontinued 1 TAB PO Twice daily November 11, 2023 12:00am November 12, 2023 1:31pm FreeTextSi tablet Orally bid; Note: Source Status: Taking; Refills: 4; Qty: 180 Tablet; Provider: Courtney Tabor ( ) rimegepant 75 mg disintegrating oral tablet (20 sources) Start: 03-30-20 End: 12-24-20 21 take 1 tablet by mouth once [...] 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: [Sinoatrial node dysfunction] Onset: 2 Chronic Complications of surgical procedures or medical care [...] 4 Episodic Other aftercare (1 source) Other correction (current) drug therapy; 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: [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 Language Information Language assistance services are available as needed. Normal [facility] Urology Office/Clinic Noteon 01-02-2025 Urology Office/Clinic [...] 2 tab(s), Refills(s) 0, Pharmacy: [facility]/pharmacy #[id number], 167, cm, 04/28/23 10:12:00 EST, Height/Length Dosing, 111, kg, 04/28/23 10:12:00 EST, Weight Dosing 04731 Measure Post Void residual urine and/or bladder capacity by US- non-imaging E&M of Est. Patient Low 20-29 Min 83130 Urnls Dip Stick Auto w/o Microscopy POC 52781 2. Incomplete bladder emptying (R33.9: Retention of urine, unspecified) PVR (cc): 04/09/21 - 58 09/03/22 - 254 04/27/23 - 161 06/02/24 - 286 Today - 74ml. Improved. Recommend timed voids and double void maneuvers. Ordered: E&M of Est. Patient Low 20-29 Min 97367 3. 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 Abd MRI 01/21/23 [facility] - mildly septated T2 hyperintense lesion involving superior pole of L kidney measuring up to 9mm (does not appear to enhance on postcontrast imaging). An additional subcentimeter T2 hyperintense lesion involving inferior pole of L kidney measuring up to about 4mm (too small for accurate characterization). R kidney unremarkable. CRESCENCIO 05/30/24 [facility] - cystic changes with questionable kidney stones. CT 07/04/24 - no evidence of prior lesion. Resolved. No further imaging indicated. Ordered: E&M of Est. Patient Low 20-29 Min 23161 Follow-up With When Contact Information [facility] Additional Instructions: Only if needed/new problems arise. [...] Protein Urine Dipstick: Negative (01/02/25 08:30:00) Specific [place] Urine Dipstick: 1.015 (01/02/25 08:30:00) Urine Appearance Urine Dipstick: Slightly cloudy (01/02/25 08:30:00) Urine Color Urine Di (more content not included)... Normal [facility] Comment on above: Result Comment: Elec tronically Signed By: ESTELA CHUNG PA-C\.br\Date and Time Signed: 01/02/25 10:35 EDT Basic Metabolic Panelon 05-2 9-2025 Anion gap [Moles/Vol] 10.7 mmol/L Normal 6.0-15.0 [facility] Comment on above: Performed By: #### B MP, PT, PTT #### [address] Calcium [Mass/Vol] 8.8 mg/dL Normal 8.6-10.3 [facility] Comment on above: Performed By: #### B MP, PT, PTT #### [address] Chloride [Moles/Vol] 106 mmol/L Normal 98-107 [facility] Comment on above: Performed By: #### B MP, PT, PTT #### [address] CO2 [Moles/Vol] 24.9 mmol/L Normal 21.0-31.0 [facility] Comment on above: Performed By: #### B MP, PT, PTT #### [address] Creatinine [Mass/Vol] 0.92 mg/dL Normal 0.60-1.20 [facility] Comment on above: Performed By: #### B MP, PT, PTT #### [address] Creatinine Clr Calc Pharmacy 104.07 Normal [facility] Comment on above: Result Comment: PERF ORMED BY: [place] [address] PATHOLOGIST [employer] PACKER KANDACE CANTU M.D. Performed By: #### B MP, PT, PTT #### [place] [address] [place] GFR/1.73 sq M.predicted MDRD (S/P/Bld) [Vol rate/Area] mL/min/{1.73_m2} Normal [facility] Comment on above: Performed By: #### B MP, PT, PTT #### [place] [address] [place] Glucose [Mass/Vol] 99 mg/dL Normal 70-100 [facility] Comment on above: Result Comment: [place] Glucose Reference Range is dependent on time and content of last meal. Glucose of more than 200 mg/dL in a nonstressed, ambulatory subject supports the diagnosis of Diabetes Mellitus. ADA recommended reference range Performed By: #### B MP, PT, PTT #### [facility] [address] Potassium [Moles/Vol] 3.6 mmol/L Normal 3.5-5.1 [facility] Comment on above: Performed By: #### B MP, PT, PTT #### [facility] [address] Sodium [Moles/Vol] 138 mmol/L Normal 136-145 [facility] Comment on above: Performed By: #### B MP, PT, PTT #### [facility] [address] [place] [address] [place] Urea nitrogen [Mass/Vol] 11 mg/dL Normal 7-25 [facility] Comment on above: Performed By: #### B MP, PT, PTT #### [facility] [address] [place] [address] [place] Basophils Auto (Bld) [#/Vol] Ordered By: Franc Barlow on 11-17-2024 Basophils (Bld) [#/Vol] Automated basophil count 0.0-0.2 [facility] Basophils/100 WBC Auto (Bld) Ordered By: Franc Barlow on 11-17-2024 Basophils/100 WBC (Bld) Automated basophil % . [facility] Calcium [Mass/volume] in Ser um or PlasmaOrdered By: Franc Barlow on 11-17-2024 Calcium [Mass/Vol] Calcium [Mass/volume ] in Serum or Plasma 8.6-10.3 [facility] Carbon dioxide, total [Moles /volume] in Serum or PlasmaOrdered By: Franc Barlow on 11-17-2024 CO2 [Moles/Vol] Carbon dioxide, tota l [Moles/volume] in Serum or Plasma 21.0-31.0 [facility] Chloride [Moles/volume] in S mac or PlasmaOrdered By: Franc Barlow on 11-17-2024 Chloride [Moles/Vol] Chloride [Moles/vol ume] in Serum or Plasma 98-107 [facility] Complete Blood Count Auto Di ffon 11-17-2024 Basophils (Bld) [#/Vol] 0.1 10*3/uL Normal 0.0-0.2 [facility] Comment on above: Result Comment: PERF ORMED BY: [place] [address] PATHOLOGIST [employer] P[employer] KANDACE CANTU M.D. Performed By: #### C BC #### [address] Basophils/100 WBC (Bld) 1.4 % Normal . [facility] Comment on above: Performed By: #### C BC #### [address] Eosinophils (Bld) [#/Vol] 0.1 10*3/uL Normal 0.0-0.45 [facility] Comment on above: Performed By: #### C BC #### [address] Eosinophils/100 WBC (Bld) 2.4 % Normal . [facility] Comment on above: Performed By: #### C BC #### [address] Erythrocyte distribution width (RBC) [Ratio] 13.7 % Normal 11.9-15.3 [facility] Comment on above: Performed By: #### C BC #### [address] Hematocrit (Bld) [Volume fraction] 40.0 % Normal 34.0-46.4 [facility] Comment on above: Performed By: #### C BC #### [address] Hemoglobin (Bld) [Mass/Vol] 14.0 g/dL Normal 11.8-15.4 [facility] Comment on above: Performed By: #### C BC #### [address] Lymphocytes (Bld) [#/Vol] 1.2 10*3/uL Normal 1.00-4.8 [facility] Comment on above: Performed By: #### C BC #### [address] Lymphocytes/100 WBC (Bld) 30.9 % Normal . [facility] Comment on above: Performed By: #### C BC #### [address] MCH (RBC) [Entitic mass] 34.4 pg High 24.7-34.3 [facility] Comment on above: Performed By: #### C BC #### [address] MCV (RBC) [Entitic vol] 98.0 fL Normal 80-100 [facility] Comment on above: Performed By: #### C BC #### [address] Mean Corpuscular HGB Conc 35.1 g/dL High 32.0-35.0 [facility] Comment on above: Performed By: #### C BC #### [address] Monocytes (Bld) [#/Vol] 0.5 10*3/uL Normal 0.0-0.8 [facility] Comment on above: Performed By: #### C BC #### [address] Monocytes/100 WBC (Bld) 12.7 % Normal . [facility] Comment on above: Performed By: #### C BC #### [address] Neutrophils (Bld) [#/Vol] 2.1 10*3/uL Normal 1.8-7.7 [facility] Comment on above: Performed By: #### C BC #### [address] Neutrophils/100 WBC (Bld) 52.6 % Normal . [facility] Comment on above: Performed By: #### C BC #### [facility] [address] NRBC% 0.1 /100{WBC} Normal 0-0.5 [facility] Comment on above: Performed By: #### C BC #### [facility] [address] [place] [id number] [facility] Platelet mean volume (Bld) [Entitic vol] 7.0 fL Normal 6.3-10.7 [facility] Comment on above: Performed By: #### C BC #### [address] Platelets (Bld) [#/Vol] 199 10*3/uL Normal 150-450 [facility] Comment on above: Performed By: #### C BC #### [address] RBC (Bld) [#/Vol] 4.08 10*6/uL Normal 3.60-5.00 [facility] Comment on above: Performed By: #### C BC #### [address] WBC (Bld) [#/Vol] 3.9 10*3/uL Normal 3.8-11.6 [facility] Comment on above: Performed By: #### C BC #### [address] Creatinine [Mass/volume] in Serum or PlasmaOrdered By: Franc Barlow on 11-17-2024 Creatinine [Mass/Vol] Creatinine [Mass/v olume] in Serum or Plasma 0.60-1.20 [facility] ECG 12 lead ECGon 11-17-2024 ECG 12 lead ECG [facility] Main [place] [address] [place] [address] Electrocardiograph Report Signed Patient: Maricarmen Anderson MR#: [id number] : 1980 Acct:[id number] Age/Sex: 44 / F ADM Date: 11/17/24 Loc: [place] Room: Type: [facility] Attending Dr: Gaurav Oliver MD Ordering [...] are now present Confirmed by Palomo Manzo ([id number]) on 11/17/2024 7:13:41 PM Referred By: Electronically Signed By: Palomo Manzo Transcribed By: MUS Signed By Palomo Manzo MD 11/17/241912 Normal [facility] Eosinophils Auto (Bld) [#/Vo l]Ordered By: Franc Barlow on 11-17-2024 Eosinophils (Bld) [#/Vol] Automated eosinophil count 0.0-0.45 [facility] Eosinophils/100 WBC Auto (Bl d)Ordered By: Franc Barlow on 11-17-2024 Eosinophils/100 WBC (Bld) Automated eosinophil % . [facility] Erythrocyte distribution wid th Auto (RBC) [Ratio]Ordered By: Franc Barlow on 11-17-2024 Erythrocyte distribution width (RBC) [Ratio] Erythrocyte distribution width [Ratio] by Automated count 11.9-15.3 [facility] Glucose [Mass/volume] in Ser um or PlasmaOrdered By: Franc Barlow on 11-17-2024 Glucose [Mass/Vol] Glucose [Mass/volume ] in Serum or Plasma 70-100 [facility] Comment on above: ADA recommended [...] human chorionic gonadotropin (hCG) detection by immunoassay [facility] HCG,Urineon 11-17-2024 Beta HCG ( test) Ql (U) Negative Normal [facility] Comment on above: Result Comment: PERF ORMED BY: [place] [address] PATHOLOGIST [employer] KANDACE CANTU M.D. Performed By: #### U HCG #### [address] Hematocrit Auto (Bld) [Volum e fraction]Ordered By: Franc Barlow on 11-17-2024 Hematocrit (Bld) [Volume fraction] Hematocrit [Volume Fraction] of Blood by Automated count 34.0-46.4 [facility] Hemoglobin [Mass/volume] in BloodOrdered By: Franc Barlow on 11-17-2024 Hemoglobin (Bld) [Mass/Vol] Hemoglobin [Mass/volume] in Blood 11.8-15.4 [facility] INR in Platelet poor plasma by Coagulation assayOrdered By: Franc Barlow on 11-17-2024 INR Coag (PPP) [Relative time] INR in Platelet poor plasma by Coagulation assay [facility] Comment on above: INR Therapeutic Rang [...] - 4.5 Roni 11-17-2024 L ----- Specimen: [id number] Received: 11/17/24 Status: ABRAM Nance Num: [id number] Spec Type: Surgical Subm Dr: Gaurav Oliver MD Tissues: A Gross Only (INFUSAPORT) Procedures: Level 1 Gross Age/ Patient Sex Location Account Attending Physician Maricarmen Anderson 44/F [place] [id number] Gaurav Oliver MD SPEC NUM: [id number] RECD: 11/17/24 STATUS: ABRAM NANCE NUM: [id number] ALEN: 11/17/24-0000 [facility] DR: Gaurav Oliver MD ENTERED: 11/17/24 [facility] DR: CECILIO TYPE: Surgical DEPT: S ENTERED BY: [id number] RECV BY: [id number] ORDERED: Level 1 Gross ORDERED: Level 1 Gross Pathological Diagnosis 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 Gross only examination Clinical Information Nonfunctioning Zucccq-q-Rhlh Gross Description Part A is received fresh labeled with the patients name, date of , and Qigerb-s-Qhlw is a white, plastic like disc, 2.2 cm in diameter by 1.1 cm in thickness. 1 surface of the specimen displays a rubbery, translucent, somewhat depressible center, 0.9 cm in diameter that is engraved CT . The opposing surface of the specimen is engraved PORT-A-CATH [id number] . Extending from the disc is a cylindrical segment of white rubbery tubing, 25 cm in length by 0.3 cm in diameter that is engraved with the numerals 10 and 20. GROSS ONLY- Gross photographs are taken Specimen: [id number] Received: 11/17/24 Status: ABRAM Nance Num: [id number] Spec Type: Surgical Subm Dr: Gaurav Oliver MD Tissues: A Gross Only (INFUSAPORT) Procedures: Level 1 Gross Patient: Maricarmen Anderson [id number] (Continued) Specimen: [id number] Received: 11/17/24 (Continued) Signed (signature on file) Chin-Brennan Rivers, MD 11/18/24 1421 Specimen: [id number] Received: 11/17/24 Status: ABRAM Nance Num: [id number] Spec Type: Surgical Subm Dr: Gaurav Oliver MD Tissues: A Gross Only (INFUSAPORT) Procedures: Level 1 Gross Patient: Maricarmen Anderson [id number] (Continued) Specimen: [id number] Received: 11/17/24 (Continued) Microscopic Description Not provided CPT Codes 44032 GROSS PHOTO GROSS PHOTO Specimen: [id number] Received: 11/17/24-1313 Status: ABRAM Nance Num: [id number] Spec Type: Surgical Subm Dr: Gaurav Oliver MD Tissues: A Gross Only (INFUSAPORT) Procedures: Level 1 Gross Patient: Maricarmen Anderson [id number] (Continued) Signed (signature on file) Jose Rivers MD 11/18/24 1421 Normal [facility] Leukocytes [#/volume] correc nneka for nucleated erythrocytes in Blood by Automated counOrdered By: Franc Barlow on 11-17-2024 WBC corrected for nucl RBC Auto (Bld) [#/Vol] Leukocytes [#/volume] corrected for nucleated erythrocytes in Blood by Automated coun 3.8-11.6 [facility] Lymphocytes Auto (Bld) [#/Vo l]Ordered By: Franc Barlow on 11-17-2024 Lymphocytes (Bld) [#/Vol] Lymphocytes [#/volume] in Blood by Automated count 1.00-4.8 [facility] Lymphocytes/100 WBC Auto (Bl d)Ordered By: Franc Barlow on 11-17-2024 Lymphocytes/100 WBC (Bld) Lymphocytes/100 leukocytes in Blood by Automated count . [facility] MCH Auto (RBC) [Entitic mass ]Ordered By: Franc Barlow on 11-17-2024 MCH (RBC) [Entitic mass] MCH [Entitic mass] by Automated count High 24.7-34.3 [facility] MCHC Auto (RBC) [Mass/Vol]Or dered By: Franc Barlow on 11-17-2024 MCHC (RBC) [Mass/Vol] MCHC [Mass/volume] by Automated count High 32.0-35.0 [facility] MCV Auto (RBC) [Entitic vol] Ordered By: Franc Barlow on 11-17-2024 MCV (RBC) [Entitic vol] MCV [Entitic volume] by Automated count 80-100 [facility] Monocytes Auto (Bld) [#/Vol] Ordered By: Franc Barlow on 11-17-2024 Monocytes (Bld) [#/Vol] Automated blood monocyte count 0.0-0.8 [facility] Monocytes/100 WBC Auto (Bld) Ordered By: Franc Barlow on 11-17-2024 Monocytes/100 WBC (Bld) Automated monocyte % . [facility] Neutrophils Auto (Bld) [#/Vo l]Ordered By: Franc Barlow on 11-17-2024 Neutrophils (Bld) [#/Vol] Neutrophils [#/volume] in Blood by Automated count 1.8-7.7 [facility] Neutrophils/100 WBC Auto (Bl d)Ordered By: Franc Barlow on 11-17-2024 Neutrophils/100 WBC (Bld) Automated neutrophil % . [facility] No Panel InformationOrdered By: Franc Barlow on 11-17-2024 Estimated GFR (CKD-EPI) > 60.0 mL/Min [facility] Creatinine Clearance (Chem 104.07 [facility] Nucleated erythrocytes [Pres ence] in Blood by Automated countOrdered By: Franc Barlow on 11-17-2024 Nucleated RBC Auto Ql (Bld) Nucleated erythrocytes [Presence] in Blood by Automated count 0-0.5 [facility] Partial Thromboplastin Timeo n 11-17-2024 aPTT Coag (Bld) [Time] 25.8 s Normal 25.1-36.5 [facility] Comment on above: Result Comment: A he matocrit value greater than 55% may lead to inaccurate results in coagulation testing. Patients having hematocrit values >55% require a special collection tube for coagulation studies. Please contact the laboratory at [phone] for redraw instructions. PERFORMED BY: [place] [address] PATHOLOGIST [employer] KANDACE CANTU M.D. Performed By: #### B MP, PT, PTT #### [address] Platelet mean volume Auto (B ld) [Entitic vol]Ordered By: Franc Barlow on 11-17-2024 Platelet mean volume (Bld) [Entitic vol] Platelet mean volume [Entitic volume] in Blood by Automated count 6.3-10.7 [facility] Platelets Auto (Bld) [#/Vol] Ordered By: Franc Barlow on 11-17-2024 Platelets (Bld) [#/Vol] Platelets [#/volume] in Blood by Automated count 150-450 [facility] Potassium [Moles/volume] in Serum or PlasmaOrdered By: Franc Barlow on 11-17-2024 Potassium [Moles/Vol] Potassium [Moles/v olume] in Serum or Plasma 3.5-5.1 [facility] Prothrombin Time INRon 11-17 INR Coag (PPP) [Relative time] 1.2 {INR} Normal [facility] Comment on above: Result Comment: [...] By: #### B MP, PT, PTT #### [facility] [address] [place] [address] [facility] PT Coag (PPP) [Time] 13.1 s High 9.0-12.9 [facility] Comment on above: Result Comment: A he matocrit value greater than 55% may lead to inaccurate results in coagulation testing. Patients having hematocrit values >55% require a special collection tube for coagulation studies. Please contact the laboratory at [phone] for redraw instructions. Performed By: #### B MP, PT, PTT #### [facility] [address] [place] [address] [facility] Prothrombin time (PT)Ordered By: Franc Barlow on 11-17-2024 PT Coag (PPP) [Time] Prothrombin time (PT) High 9.0- 12.9 [facility] Comment on above: A hematocrit value g reater than 55% may lead to inaccurate results in coagulation testing. Patients having hematocrit values >55% require a special collection tube for coagulation studies. Please contact the laboratory at [phone] for redraw instructions. RBC Auto (Bld) [#/Vol]Ordere d By: Franc Barlow on 11-17-2024 RBC (Bld) [#/Vol] Erythrocytes [#/volu me] in Blood by Automated count 3.60-5.00 [facility] Serum or plasma anion gap de terminationOrdered By: Franc Barlow on 11-17-2024 Anion gap [Moles/Vol] Serum or plasma an ion gap determination 6.0-15.0 [facility] Sodium [Moles/volume] in Ser um or PlasmaOrdered By: Franc Barlow on 11-17-2024 Sodium [Moles/Vol] Sodium [Moles/volume ] in Serum or Plasma 136-145 [facility] Urea nitrogen [Mass/volume] in Serum or PlasmaOrdered By: Franc Barlow on 11-17-2024 Urea nitrogen [Mass/Vol] Urea nitrogen [Mass/volume] in Serum or Plasma 7-25 [facility] WBC Auto (Bld) [#/Vol]Ordere d By: Franc Barlow on 11-17-2024 WBC (Bld) [#/Vol] Leukocytes [#/volume ] in Blood by Automated count 3.8-11.6 [facility] X-ray reportOrdered By: Adam Escamilla on 11-17-2024 Study report [facility] Main [address] [address] XRay Report Signed Patient: Maricarmen Anderson MR#: [id number] : 1980 Acct:[id number] Age/Sex: 44 / F ADM Date: 5 Loc: [place] Room: Type: [facility] Attending Dr: Gaurav Oliver MD Copies to: Gaurav Oliver MD~ Ordering Provider: Gaurav Oliver MD Date of Service: 11/17/24 XR/XR chest 1V portable: POST INFUSAPORT EXCHANGE RIGHT SIDE XR chest 1V portable 11/17/2024 1:04 PM SIGNS AND SYMPTOMS: ^POST INFUSAPORT EXCHANGE RIGHT SIDE PROTOCOL: Frontal radiograph the chest COMPARISON: 12/19/2022 FINDINGS: The trachea is midline. There is a new right-sided Vljauq-c-Mrtg is present with the tip in the superior vena cava. There is no pneumothorax. There is a dual lead pacer device on the left. The heart and mediastinal structures are within normal limits. The lung parenchyma is clear. The bony thorax is intact. XR/XR chest 1V portable IMPRESSION: There is a new right-sided Doxteu-k-Wyqc is present with the tip in the superiorvena cava. There is no pneumothorax. Impression dictated by: Adam Escamilla M.D. 11/17/2024 1:19 PM Dictation Location: [place] [address] Transcribed By: RAFA 11/17/24 1319 Dictated By: Adam Escamilla II, MD 11/17/24 1317 Signed By: 11/17/24 1319 [facility] Work Phone: XR chest 1V portableon 11-17 XR chest 1V portable [facility] Main [address] [address] XRay Report Signed Patient: Maricarmen Anderson MR#: [id number] : 1980 Acct:[id number] Age/Sex: 44 / F ADM Date: 11/17/24 Loc: [place] Room: Type: [facility] Attending Dr: Gaurav Oliver MD Copies to: Gaurav Oliver MD Ordering Provider: Gaurav Oliver MD Date of Service: 11/17/24 XR/XR chest 1V portable: POST INFUSAPORT EXCHANGE RIGHT SIDE XR chest 1V portable 11/17/2024 1:04 PM SIGNS AND SYMPTOMS: POST INFUSAPORT EXCHANGE RIGHT SIDE PROTOCOL: Frontal radiograph the chest COMPARISON: 12/19/2022 FINDINGS: The trachea is midline. There is a new right-sided Igndkl-q-Xlmx is present with the tip in the superior vena cava. There is no pneumothorax. There is a dual lead pacer device on the left. The heart and mediastinal structures are within normal limits. The lung parenchyma is clear. The bony thorax is intact. XR/XR chest 1V portable IMPRESSION: There is a new right-sided Isyztg-x-Xody is present with the tip in the superior vena cava. There is no pneumothorax. Impression dictated by: Adam Escamilla M.D. 11/17/2024 1:19 PM Dictation Location: [place] [address] Transcribed By: [facility] 11/17/24 1319 Dictated By: Adam Escamilla II, MD 11/17/24 1317 Signed By: 11/17/24 1319 Normal [facility] aPTT in Platelet poor plasma by Coagulation assayOrdered By: Franc Barlow on 11-17-2024 aPTT Coag (PPP) [Time] Activated partial thromboplastin time (aPTT) in platelet poor plasma by coagulation a 25.1-36.5 [facility] Comment on above: A hematocrit value g reater than 55% may lead to inaccurate results in coagulation testing. Patients having hematocrit values >55% require a special collection tube for coagulation studies. Please contact the laboratory at [phone] for redraw instructions. Basophils Auto (Bld) [#/Vol] on 10-31-2024 Basophils (Bld) [#/Vol] Automated basophil count 0.0-0.1 [facility] Basophils/100 WBC Auto (Bld) on 10-31-2024 Basophils/100 WBC (Bld) Automated basophil % 0.2-2.0 [facility] Eosinophils/100 WBC Auto (Bl d)on 10-31-2024 Eosinophils/100 WBC (Bld) Automated eosinophil % Low 0.9-7.0 [facility] Erythrocyte distribution wid th Auto (RBC) [Ratio]on 10-31-2024 Erythrocyte distribution width (RBC) [Ratio] Erythrocyte distribution width [Ratio] by Automated count 11.0-15.0 [facility] Estimated glomerular filtrat ion rate (GFR) non- Americanon 10-31-2024 GFR/1.73 sq M.predicted among non-blacks MDRD (S/P/Bld) [Vol rate/Area] Estimated glomerular filtration rate (GFR) non- Low >=60 mL/min/1.73 m 2 [facility] Hematocrit Auto (Bld) [Volum e fraction]on 10-31-2024 Hematocrit (Bld) [Volume fraction] Hematocrit [Volume Fraction] of Blood by Automated count 36.0-48.0 [facility] Hemoglobin [Mass/volume] in Bloodon 10-31-2024 Hemoglobin (Bld) [Mass/Vol] Hemoglobin [Mass/volume] in Blood 12.0-16.0 [facility] Iron binding capacity [Mass/ volume] in Serum or Plasmaon 10-31-2024 Iron binding capacity [Mass/Vol] Iron binding capacity [Mass/volume] in Serum or Plasma 250.0-450.0 [facility] Iron saturation [Mass Fracti on] in Serum or Plasmaon 10-31-2024 Iron saturation [Mass fraction] Iron saturation [Mass Fraction] in Serum or Plasma [facility] Laboratory - Chemistry and C hemistry - challengeon 10-31-2024 Calcium [Mass/Vol] 8.8 mg/dL 8.5-10.1 [facility] Chloride [Moles/Vol] 104 mmol/L 98-107 [facility] CO2 [Moles/Vol] 28.6 mmol/L 21.0-32.0 [facility] Cobalamin (Vitamin B12) [Mass/Vol] 655 pg/mL 232-1245 [facility] Comment on above: Performed at: - [facility] [id number] [place], [place] [id number] Director: Prabhakar Warren PhD, Phone: [phone] Creatinine [Mass/Vol] 1.06 mg/dL High 0.55-1.02 [facility] Ferritin [Mass/Vol] 136.0 ng/mL 8.0-252.0 [facility] GFR/1.73 sq M.predicted MDRD (S/P/Bld) [Vol rate/Area] mL/min/{1.73_m2} >=60 mL/min/1.73 m 2 [facility] Glucose [Mass/Vol] 132 mg/dL High 74-106 [facility] Iron [Mass/Vol] 59.0 ug/dL 50.0-170.0 [facility] Potassium [Moles/Vol] 3.3 mmol/L Low 3.5-5.1 [facility] Sodium [Moles/Vol] 137 mmol/L 136-145 [facility] Urea nitrogen [Mass/Vol] 8.0 mg/dL 7.0-18.0 [facility] Urea nitrogen/Creatinine [Mass ratio] 7.5 mg/mg [facility] Laboratory - Hematology and Cell countson 10-31-2024 Immature granulocytes/100 WBC (Bld) 0.0 % 0.0-0.5 [facility] Leukocytes [#/volume] correc nneka for nucleated erythrocytes in Blood by Automated counon 10-31-2024 WBC corrected for nucl RBC Auto (Bld) [#/Vol] Leukocytes [#/volume] corrected for nucleated erythrocytes in Blood by Automated coun Low 4.0-11.0 [facility] Lymphocytes Auto (Bld) [#/Vo l]on 10-31-2024 Lymphocytes (Bld) [#/Vol] Lymphocytes [#/volume] in Blood by Automated count Low 1.2-3.8 [facility] Lymphocytes/100 WBC Auto (Bl d)on 10-31-2024 Lymphocytes/100 WBC (Bld) Lymphocytes/100 leukocytes in Blood by Automated count 20.5-60.0 [facility] MCH Auto (RBC) [Entitic mass ]on 10-31-2024 MCH (RBC) [Entitic mass] MCH [Entitic mass] by Automated count 26.7-34.0 [facility] MCHC Auto (RBC) [Mass/Vol]on 10-31-2024 MCHC (RBC) [Mass/Vol] MCHC [Mass/volume] by Automated count 29.9-35.2 [facility] MCV Auto (RBC) [Entitic vol] on 10-31-2024 MCV (RBC) [Entitic vol] MCV [Entitic volume] by Automated count High 81.0-99.0 [facility] Monocytes Auto (Bld) [#/Vol] on 10-31-2024 Monocytes (Bld) [#/Vol] Automated blood monocyte count 0.3-0.8 [facility] Monocytes/100 WBC Auto (Bld) on 10-31-2024 Monocytes/100 WBC (Bld) Automated monocyte % High 1.7-12.0 [facility] Neutrophils Auto (Bld) [#/Vo l]on 10-31-2024 Neutrophils (Bld) [#/Vol] Neutrophils [#/volume] in Blood by Automated count Low 1.4-6.5 [facility] Neutrophils/100 WBC Auto (Bl d)on 10-31-2024 Neutrophils/100 WBC (Bld) Automated neutrophil % 43.0-75.0 [facility] No Panel Informationon 10-31 25-Hydroxy Vitamin D Total 39.3 ng/mL [facility] Comment on above: <20 ng/mL Vit D defi cient20-<30 ng/mL Vit D [id number] ng/mL Vit D sufficient>100 ng/mL Potential Toxicity Eosinophils # (Auto) 0.0 10 3/uL 0.0-0.7 [facility] Immature Granulocyte # (Auto) 0.00 10 3/uL 0.00-0.03 [facility] Platelet mean volume Auto (B ld) [Entitic vol]on 10-31-2024 Platelet mean volume (Bld) [Entitic vol] Platelet mean volume [Entitic volume] in Blood by Automated count 9.5-13.5 [facility] Platelets Auto (Bld) [#/Vol] on 10-31-2024 Platelets (Bld) [#/Vol] Platelets [#/volume] in Blood by Automated count Low 150-450 [facility] RBC Auto (Bld) [#/Vol]on RBC (Bld) [#/Vol] Erythrocytes [#/volu me] in Blood by Automated count Low 4.20-5.40 [facility] Serum or plasma anion gap de terminationon 10-31-2024 Anion gap [Moles/Vol] Serum or plasma an ion gap determination [facility] INR in Platelet poor plasma by Coagulation assayon 09-26-2024 INR Coag (PPP) [Relative time] INR in Platelet poor plasma by Coagulation assay [facility] Comment on above: DESIRED INR:2.0-3.0 CONDITIONS NOT LISTED BELOW2.5-3.5 FOR PROSTHETIC HEART VALVE REPLACEMENT2.5-3.5 RECURRENT THROMBOSIS No Panel Informationon 09-26 Human Chorionic Gonadotropin, Qual Negative NEGATIVE [facility] Prothrombin time (PT)on PT Coag (PPP) [Time] Prothrombin time (PT) High 9.0- 11.6 [facility] MR cervical spine wo conon 0 08-31-2024 MR cervical spine wo con [facility] [address] MRI Report Signed Patient: Maricarmen Anderson MR#: [id number] : 1980 Acct:[id number] Age/Sex: 43 / F ADM Date: 08/31/24 Loc: Room: Type: [facility] Attending Dr: Tete Snell MD Copies [...] Praful Manley M.D.08/31/2024 10:20 AM Dictation Location: [place] [address] Transcribed By: [facility] 08/31/24 1020 Dictated By: Praful Manley MD 08/31/24 0947 Signed By: 08/31/24 1020 Normal [facility] Magnetic resonance imaging r eportOrdered By: Praful Manley on 08-31-2024 Study report [facility] [address] MRI Report Signed Patient: Maricarmen Anderson MR#: [id number] : 1980 Acct:[id number] Age/Sex: 43 / F ADM Date: 5 Loc: MR Room: Type: [facility] Attending Dr: Tete Snell MD Copies [...] Praful Manley M.D.08/31/2024 10:20 AM Dictation Location: [place] [address] Transcribed By: [facility] 08/31/24 1020 Dictated By: Praful Manley MD 08/31/24 0947 Signed By: 08/31/24 1020 [facility] Work Phone: INR in Platelet poor plasma by Coagulation assayon 07-11-2024 INR Coag (PPP) [Relative time] INR in Platelet poor plasma by Coagulation assay [facility] Comment on above: DESIRED INR:2.0-3.0 CONDITIONS NOT LISTED BELOW2.5-3.5 FOR PROSTHETIC HEART VALVE REPLACEMENT2.5-3.5 RECURRENT THROMBOSIS No Panel Informationon 07-11 Human Chorionic Gonadotropin, Qual Negative NEGATIVE [facility] Prothrombin time (PT)on 06-23 PT Coag (PPP) [Time] Prothrombin time (PT) 9.0- 11.6 [facility] Basophils Auto (Bld) [#/Vol] on 07-05-2024 Basophils (Bld) [#/Vol] Automated basophil count 0.0-0.1 [facility] Basophils/100 WBC Auto (Bld) on 07-05-2024 Basophils/100 WBC (Bld) Automated basophil % 0.2-2.0 [facility] Eosinophils/100 WBC Auto (Bl d)on 07-05-2024 Eosinophils/100 WBC (Bld) Automated eosinophil % 0.9-7.0 [facility] Erythrocyte distribution wid th Auto (RBC) [Ratio]on 07-05-2024 Erythrocyte distribution width (RBC) [Ratio] Erythrocyte distribution width [Ratio] by Automated count 11.0-15.0 [facility] Estimated glomerular filtrat ion rate (GFR) non- Americanon 07-05-2024 GFR/1.73 sq M.predicted among non-blacks MDRD (S/P/Bld) [Vol rate/Area] Estimated glomerular filtration rate (GFR) non- >=60 mL/min/1.73 m 2 [facility] Hematocrit Auto (Bld) [Volum e fraction]on 07-05-2024 Hematocrit (Bld) [Volume fraction] Hematocrit [Volume Fraction] of Blood by Automated count 36.0-48.0 [facility] Hemoglobin [Mass/volume] in Bloodon 07-05-2024 Hemoglobin (Bld) [Mass/Vol] Hemoglobin [Mass/volume] in Blood 12.0-16.0 [facility] Iron binding capacity [Mass/ volume] in Serum or Plasmaon 07-05-2024 Iron binding capacity [Mass/Vol] Iron binding capacity [Mass/volume] in Serum or Plasma 250.0-450.0 [facility] Iron saturation [Mass Fracti on] in Serum or Plasmaon 07-05-2024 Iron saturation [Mass fraction] Iron saturation [Mass Fraction] in Serum or Plasma [facility] Laboratory - Chemistry and C hemistry - challengeon 07-05-2024 Calcium [Mass/Vol] 9.2 mg/dL 8.5-10.1 [facility] Chloride [Moles/Vol] 105 mmol/L 98-107 [facility] CO2 [Moles/Vol] 28.3 mmol/L 21.0-32.0 [facility] Cobalamin (Vitamin B12) [Mass/Vol] 617 pg/mL 232-1245 [facility] Comment on above: Performed at: - [facility] [address] [id number] Director: Prabhakar Warren PhD, Phone: [phone] Creatinine [Mass/Vol] 0.94 mg/dL 0.55-1.02 [facility] Ferritin [Mass/Vol] 76.0 ng/mL 8.0-252.0 [facility] GFR/1.73 sq M.predicted MDRD (S/P/Bld) [Vol rate/Area] mL/min/{1.73_m2} >=60 mL/min/1.73 m 2 [facility] Glucose [Mass/Vol] 96 mg/dL 74-106 [facility] Iron [Mass/Vol] 116.0 ug/dL 50.0-170.0 [facility] Potassium [Moles/Vol] 4.3 mmol/L 3.5-5.1 [facility] Sodium [Moles/Vol] 143 mmol/L 136-145 [facility] Urea nitrogen [Mass/Vol] 11.0 mg/dL 7.0-18.0 [facility] Urea nitrogen/Creatinine [Mass ratio] 11.7 mg/mg [facility] Laboratory - Hematology and Cell countson 07-05-2024 Immature granulocytes/100 WBC (Bld) 0.2 % 0.0-0.5 [facility] Leukocytes [#/volume] correc nneka for nucleated erythrocytes in Blood by Automated counon 07-05-2024 WBC corrected for nucl RBC Auto (Bld) [#/Vol] Leukocytes [#/volume] corrected for nucleated erythrocytes in Blood by Automated coun 4.0-11.0 [facility] Lymphocytes Auto (Bld) [#/Vo l]on 07-05-2024 Lymphocytes (Bld) [#/Vol] Lymphocytes [#/volume] in Blood by Automated count 1.2-3.8 [facility] Lymphocytes/100 WBC Auto (Bl d)on 07-05-2024 Lymphocytes/100 WBC (Bld) Lymphocytes/100 leukocytes in Blood by Automated count 20.5-60.0 [facility] MCH Auto (RBC) [Entitic mass ]on 07-05-2024 MCH (RBC) [Entitic mass] MCH [Entitic mass] by Automated count High 26.7-34.0 [facility] MCHC Auto (RBC) [Mass/Vol]on 07-05-2024 MCHC (RBC) [Mass/Vol] MCHC [Mass/volume] by Automated count 29.9-35.2 [facility] MCV Auto (RBC) [Entitic vol] on 07-05-2024 MCV (RBC) [Entitic vol] MCV [Entitic volume] by Automated count High 81.0-99.0 [facility] Main [place] Intraoperative Recor don 07-05-2024 Main OR Intraoperative Record Main [place] Intraoperative Record IntraOp Document Type FTURO Summary Primary Physician: Michael VIVEROS MD Finalized Date/Time: 07/05/24 13:38:20 Pt. Name: JUAN PABLO ANDERSONSTEVEN Murrieta D.O.B./Sex: 1980 Female Med Rec #: [id number] Physician: Michael VIVEROS MD Financial #: [id number] Pt. Type: O Room/Bed: / Admit/Disch: 07/05/24 12:41:15 - Institution: Case Times FTURO Entry 1 Patient Times In Room 07/05/24 13:26:00 Out Room 07/05/24 13:38:00 Procedure Times Start 07/05/24 13:32:00 Stop 07/05/24 13:35:00 Anesthesia Times Last Modified By: Jolie Caldwell 07/05/24 13:38:10 Case Attendance FTURO Entry 1 Entry 2 Entry 3 Case Attendee Michael VIVEROS MD, Kelsie E McClain TERMITE CONTROL TECHNICIANSheyla Role Performed Surgeon - Primary Management Developer - Primary Scrub - Primary Time In 07/05/24 13:26:00 07/05/24 13:26:00 07/05/24 13:26:00 Time Out 07/05/24 13:38:00 07/05/24 13:38:00 07/05/24 13:38:00 Procedure CYSTOSCOPY LOCAL(.) CYSTOSCOPY LOCAL(.) CYSTOSCOPY LOCAL(.) Comments Last Modified By: Jolie Caldwell Kelsie E Burgderfer, Jolie E 07/05/24 13:38:11 07/05/24 13:38:11 07/05/24 13:38:11 [...] Prep Agents Betadine Solution Skin. Condition Intact, [place], Warm, & Description N/A Dry Additional None [...] 07/05/24 13:38 Jolie Caldwell 07/05/24 13:[address] [facility] Main [place] Preoperative Recordo n 07-05-2024 Main OR Preoperative Record Main [place] Preoperative Record Holding Area Document Type FTURO Summary Primary Physician: Michael VIVEROS MD Finalized Date/Time: 07/05/24 13:21:29 Pt. Name: MARICARMEN ANDERSON/Sex: 1980 Female Med Rec #: [id number] Physician: Michael VIVEROS MD Financial #: [id number] Pt. Type: O Room/Bed: / Admit/Disch: 07/05/24 [...] Complaints of Pain: No Skin Integrity Intact, [place], Warm, & Dry Vitals - EU Blood [...] 07/05/24 13:09 Jolie Caldwell 07/05/24 13:[address] [facility] Monocytes Auto (Bld) [#/Vol] on 07-05-2024 Monocytes (Bld) [#/Vol] Automated blood monocyte count 0.3-0.8 [facility] Monocytes/100 WBC Auto (Bld) on 07-05-2024 Monocytes/100 WBC (Bld) Automated monocyte % 1.7-12.0 [facility] Neutrophils Auto (Bld) [#/Vo l]on 07-05-2024 Neutrophils (Bld) [#/Vol] Neutrophils [#/volume] in Blood by Automated count 1.4-6.5 [facility] Neutrophils/100 WBC Auto (Bl d)on 07-05-2024 Neutrophils/100 WBC (Bld) Automated neutrophil % 43.0-75.0 [facility] No Panel Informationon 07-05 25-Hydroxy Vitamin D Total 31.2 ng/mL [facility] Comment on above: <20 ng/mL Vit D defi cient20-<30 ng/mL Vit D ztaprrzctnjr95-261 ng/mL Vit D sufficient>100 ng/mL Potential Toxicity Eosinophils # (Auto) 0.1 10 3/uL 0.0-0.7 [facility] Immature Granulocyte # (Auto) 0.01 10 3/uL 0.00-0.03 [facility] Operative Reporton Operative Report Operative Report [...] Urethra was dilated from 22-30 Setswana with Pavel sounds. Normal [facility] Comment on above: Result Comment: Elec tronically Signed By: Michael VIVEROS MD\.br\Date and Time Signed: 07/05/24 13:40 EST Platelet mean volume Auto (B ld) [Entitic vol]on 07-05-2024 Platelet mean volume (Bld) [Entitic vol] Platelet mean volume [Entitic volume] in Blood by Automated count 9.5-13.5 [facility] Platelets Auto (Bld) [#/Vol] on 07-05-2024 Platelets (Bld) [#/Vol] Platelets [#/volume] in Blood by Automated count 150-450 [facility] RBC Auto (Bld) [#/Vol]on RBC (Bld) [#/Vol] Erythrocytes [#/volu me] in Blood by Automated count Low 4.20-5.40 [facility] Serum or plasma anion gap de terminationon 07-05-2024 Anion gap [Moles/Vol] Serum or plasma an ion gap determination [facility] CT abdomen pelvis w conon CT abdomen pelvis w con [facility] Main [place] [address] [place] [address] CT Scan Report Signed Patient: Maricarmen Anderson MR#: [id number] : 1980 Acct:[id number] Age/Sex: 43 / F ADM Date: 07/04/24 Loc: CT Room: Type: [facility] Attending Dr: Michael Viveros MD Copies to: Michale Viveros MD Ordering Provider: Michael Viveros MD [...] Oro Jr., D.O.07/04/2024 2:58 PM Dictation Location: [place] [address] Transcribed By: RAFA 07/04/241457 Dictated By: Mitchel Oro Jr, DO 07/04/241454 Signed By: 07/04/241457 Normal [facility] Basophils Auto (Bld) [#/Vol] on 06-02-2024 Basophils (Bld) [#/Vol] Automated basophil count 0.0-0.1 [facility] Basophils/100 WBC Auto (Bld) on 06-02-2024 Basophils/100 WBC (Bld) Automated basophil % 0.2-2.0 [facility] Cholesterol in LDL Calc [Mas s/Vol]on 06-02-2024 Cholesterol in LDL [Mass/Vol] Cholesterol in LDL [Mass/volume] in Serum or Plasma by calculation [facility] Comment on above: <100 mg/dl [id number] 0-129 mg/dl NEAR OR ABOVE [id number] mg/dl BORDERLINE [id number] mg/dl HIGH>190 mg/dl VERY HIGH Cholesterol in VLDL Calc [Ma ss/Vol]on 06-02-2024 Cholesterol in VLDL [Mass/Vol] Cholesterol in VLDL [Mass/volume] in Serum or Plasma by calculation [facility] Eosinophils/100 WBC Auto (Bl d)on 06-02-2024 Eosinophils/100 WBC (Bld) Automated eosinophil % 0.9-7.0 [facility] Erythrocyte distribution wid th Auto (RBC) [Ratio]on 06-02-2024 Erythrocyte distribution width (RBC) [Ratio] Erythrocyte distribution width [Ratio] by Automated count 11.0-15.0 [facility] Estimated glomerular filtrat ion rate (GFR) non- Americanon 06-02-2024 GFR/1.73 sq M.predicted among non-blacks MDRD (S/P/Bld) [Vol rate/Area] Estimated glomerular filtration rate (GFR) non- Low >=60 mL/min/1.73 m 2 [facility] Glucose mean value [Mass/vol ume] in Blood Estimated from glycated hemoglobinon 06-02-2024 Average glucose Estimated from glycated hemoglobin (Bld) [Mass/Vol] Glucose mean value [Mass/volume] in Blood Estimated from glycated hemoglobin [facility] Hematocrit Auto (Bld) [Volum e fraction]on 06-02-2024 Hematocrit (Bld) [Volume fraction] Hematocrit [Volume Fraction] of Blood by Automated count 36.0-48.0 [facility] Hemoglobin [Mass/volume] in Bloodon 06-02-2024 Hemoglobin (Bld) [Mass/Vol] Hemoglobin [Mass/volume] in Blood 12.0-16.0 [facility] Iron binding capacity [Mass/ volume] in Serum or Plasmaon 06-02-2024 Iron binding capacity [Mass/Vol] Iron binding capacity [Mass/volume] in Serum or Plasma 250.0-450.0 [facility] Iron saturation [Mass Fracti on] in Serum or Plasmaon 06-02-2024 Iron saturation [Mass fraction] Iron saturation [Mass Fraction] in Serum or Plasma [facility] Laboratory - Chemistry and C hemistry - challengeon 06-02-2024 Calcium [Mass/Vol] 9.1 mg/dL 8.5-10.1 [facility] Chloride [Moles/Vol] 105 mmol/L 98-107 [facility] Cholesterol [Mass/Vol] 186 mg/dL <=200 [facility] Cholesterol in HDL [Mass/Vol] 72 mg/dL High 40-60 [facility] Comment on above: > or =60 mg/dl - LOW CARDIOVASCULAR RISK<40 mg/dl - HIGH CARDIOVASCULAR RISK CO2 [Moles/Vol] 29.9 mmol/L 21.0-32.0 [facility] Cobalamin (Vitamin B12) [Mass/Vol] 241 pg/mL 232-1245 [facility] Comment on above: Performed at: - [facility] [address] [id number] Director: Prabhakar Warren PhD, Phone: [phone] Creatinine [Mass/Vol] 1.16 mg/dL High 0.55-1.02 [facility] Ferritin [Mass/Vol] 78.0 ng/mL 8.0-252.0 [facility] GFR/1.73 sq M.predicted MDRD (S/P/Bld) [Vol rate/Area] mL/min/{1.73_m2} >=60 mL/min/1.73 m 2 [facility] Glucose [Mass/Vol] 101 mg/dL 74-106 [facility] Iron [Mass/Vol] 112.0 ug/dL 50.0-170.0 [facility] Potassium [Moles/Vol] 3.9 mmol/L 3.5-5.1 [facility] Sodium [Moles/Vol] 141 mmol/L 136-145 [facility] Triglyceride [Mass/Vol] 86 mg/dL <=150 [facility] Urea nitrogen [Mass/Vol] 7.0 mg/dL 7.0-18.0 [facility] Urea nitrogen/Creatinine [Mass ratio] 6.0 mg/mg [facility] Laboratory - Hematology and Cell countson 06-02-2024 HbA1c (Bld) [Mass fraction] 5.7 % 4.5-6.2 [facility] Comment on above: ADA RECOMMENDED LIMI T 4.0 - 6.0ADA THERAPEUTIC TARGET < 7.0ACTION SUGGESTED> 7.0 Immature granulocytes/100 WBC (Bld) 0.2 % 0.0-0.5 [facility] Leukocytes [#/volume] correc nneka for nucleated erythrocytes in Blood by Automated counon 06-02-2024 WBC corrected for nucl RBC Auto (Bld) [#/Vol] Leukocytes [#/volume] corrected for nucleated erythrocytes in Blood by Automated coun 4.0-11.0 [facility] Lymphocytes Auto (Bld) [#/Vo l]on 06-02-2024 Lymphocytes (Bld) [#/Vol] Lymphocytes [#/volume] in Blood by Automated count 1.2-3.8 [facility] Lymphocytes/100 WBC Auto (Bl d)on 06-02-2024 Lymphocytes/100 WBC (Bld) Lymphocytes/100 leukocytes in Blood by Automated count 20.5-60.0 [facility] MCH Auto (RBC) [Entitic mass ]on 06-02-2024 MCH (RBC) [Entitic mass] MCH [Entitic mass] by Automated count 26.7-34.0 [facility] MCHC Auto (RBC) [Mass/Vol]on 06-02-2024 MCHC (RBC) [Mass/Vol] MCHC [Mass/volume] by Automated count 29.9-35.2 [facility] MCV Auto (RBC) [Entitic vol] on 06-02-2024 MCV (RBC) [Entitic vol] MCV [Entitic volume] by Automated count 81.0-99.0 [facility] Monocytes Auto (Bld) [#/Vol] on 06-02-2024 Monocytes (Bld) [#/Vol] Automated blood monocyte count 0.3-0.8 [facility] Monocytes/100 WBC Auto (Bld) on 06-02-2024 Monocytes/100 WBC (Bld) Automated monocyte % 1.7-12.0 [facility] Neutrophils Auto (Bld) [#/Vo l]on 06-02-2024 Neutrophils (Bld) [#/Vol] Neutrophils [#/volume] in Blood by Automated count 1.4-6.5 [facility] Neutrophils/100 WBC Auto (Bl d)on 06-02-2024 Neutrophils/100 WBC (Bld) Automated neutrophil % 43.0-75.0 [facility] No Panel Informationon 06-02 25-Hydroxy Vitamin D Total 26.9 ng/mL [facility] Comment on above: <20 ng/mL Vit D defi cient20-<30 ng/mL Vit D [id number] ng/mL Vit D sufficient>100 ng/mL Potential Toxicity Eosinophils # (Auto) 0.2 10 3/uL 0.0-0.7 [facility] Immature Granulocyte # (Auto) 0.01 10 3/uL 0.00-0.03 [facility] Platelet mean volume Auto (B ld) [Entitic vol]on 06-02-2024 Platelet mean volume (Bld) [Entitic vol] Platelet mean volume [Entitic volume] in Blood by Automated count Low 9.5-13.5 [facility] Platelets Auto (Bld) [#/Vol] on 06-02-2024 Platelets (Bld) [#/Vol] Platelets [#/volume] in Blood by Automated count 150-450 [facility] RBC Auto (Bld) [#/Vol]on RBC (Bld) [#/Vol] Erythrocytes [#/volu me] in Blood by Automated count 4.20-5.40 [facility] Serum or plasma anion gap de terminationon 06-02-2024 Anion gap [Moles/Vol] Serum or plasma an ion gap determination [facility] Serum or plasma total choles terol/high density lipoprotein (HDL) cholesterol mass edu 06-02-2024 Cholesterol.total/Chol esterol in HDL [Mass ratio] Serum or plasma total cholesterol/high density lipoprotein (HDL) cholesterol mass rat [facility] Comment on above: 3.3 - 4.4 [...] 161 TODAY - 286ml. See #2. Ordered: [id number] Measure Post Void residual urine and/or bladder capacity by US- non-imaging Urnls Dip Stick Auto w/o Microscopy POC 76546 2. Urethral stricture (N35.919: Unspecified urethral stricture, [...] been obtained. Will order Local anesthesia. Ordered: [id number] Measure Post Void residual urine and/or bladder capacity by US- non-imaging Urnls Dip Stick Auto w/o Microscopy POC 50273 3. 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 Abd MRI 01/21/23 [facility] - mildly septated T2 hyperintense lesion involving [...] better look at the complex cyst. Ordered: [id number] Measure Post Void residual urine and/or bladder capacity by US- non-imaging Urnls Dip Stick Auto w/o Microscopy POC 33385 4. 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 [address] Additional Instructions: Follow up schedule [...] 06/02/2024 Tobac (more content not included)... Normal [facility] Comment on above: Result Comment: Elec tronically Signed By: ESTELA CHUNG PA-C\.br\Date and Time Signed: 06/02/24 16:50 EST\.br\Electronically Co-Signed By: Shyann Yoo\.br\Date and Time Co-Signed: 06/02/24 15:54 EST US renal BIon 05-30-2024 US renal BI [facility] Main [address] [address] Ultrasound Report Signed Patient: Maricarmen Anderson MR#: [id number] : 1980 Acct:[id number] Age/Sex: 43 / F ADM Date: 05/30/24 Loc: Room: Type: [facility] Attending Dr: Estela Chung PA-C Ordering [...] Oro Jr., D.OBeatris05/30/2024 6:31 PM Dictation Location: [place] [address] Tech: Greta Reyes Transcribed By: [facility] 05/30/241830 Dictated By: Mitchel Oro Jr, DO 05/30/241828 Signed By: 05/30/24 183 Normal [facility] APTTon 10-31-2023 aPTT Coag (Bld) [Time] 139.6 s Critically high 23.0-36. 5 [facility] Comment on above: Result Comment: IV Heparin Therapy Range: 66.0-92.0 sec Performed By: #### P TT #### [employer] [address] [place] [address] [id number] Hospice Consultant: Breezy White MD CBCon 10-31-2023 Erythrocyte distribution width (RBC) [Ratio] 12.7 % Normal 11.8-14.4 [facility] Comment on above: Performed By: #### C BC #### [employer] [address] [place] [address] Hospice Consultant: Breezy White MD Hematocrit (Bld) [Volume fraction] 36.5 % Normal 36.3-47.1 [facility] Comment on above: Performed By: #### C BC #### [address] [address] Hospice Consultant: Breezy White MD Hemoglobin (Bld) [Mass/Vol] 12.0 g/dL Normal 11.9-15.1 [facility] Comment on above: Performed By: #### C BC #### [address] [address] Hospice Consultant: Breezy White MD MCH (RBC) [Entitic mass] 31.9 pg Normal 25.2-33.5 [facility] Comment on above: Performed By: #### C BC #### [address] [address] Hospice Consultant: Breezy White MD MCHC (RBC) [Mass/Vol] 32.9 g/dL Normal 28.4-34.8 [facility] Comment on above: Performed By: #### C BC #### [address] [address] Hospice Consultant: Breezy White MD MCV (RBC) [Entitic vol] 97.1 fL Normal 82.6-102.9 [facility] Comment on above: Performed By: #### C BC #### [address] [address] Hospice Consultant: Breezy White MD NRBC Automated 0.0 per 100 WBC Normal 0.0 [facility] Comment on above: Performed By: #### C BC #### [address] [address] Hospice Consultant: Breezy White MD Platelet mean volume (Bld) [Entitic vol] 9.9 fL Normal 8.1-13.5 [facility] Comment on above: Performed By: #### C BC #### [address] [address] Hospice Consultant: Breezy White MD Platelets (Bld) [#/Vol] 149 10*3/uL Normal 138-453 [facility] Comment on above: Performed By: #### C BC #### [address] [address] Hospice Consultant: Breezy White MD RBC (Bld) [#/Vol] 3.76 10*6/uL Low 3.95-5.11 [facility] Comment on above: Performed By: #### C BC #### [address] [address] Hospice Consultant: Breezy White MD WBC (Bld) [#/Vol] 5.0 10*3/uL Normal 3.5-11.3 [facility] Comment on above: Performed By: #### C BC #### [address] [address] Hospice Consultant: Breezy White MD APTTon 2023 aPTT Coag (Bld) [Time] 59.7 s High 23.0-36.5 [facility] Comment on above: Result Comment: IV Heparin Therapy Range: 66.0-92.0 sec Performed By: #### P TT #### [address] [address] Hospice Consultant: Breezy White MD aPTT Coag (Bld) [Time] 75.3 s High 23.0-36.5 [facility] Comment on above: Result Comment: IV Heparin Therapy Range: 66.0-92.0 sec Performed By: #### P TT #### [address] [id number] Hospice Consultant: Breezy White MD aPTT Coag (Bld) [Time] s Critically high 23.0-36. 5 [facility] Comment on above: Result Comment: IV Heparin Therapy Range: 66.0-92.0 sec Performed By: #### P TT #### [address] [phone] Hospice Consultant: Breezy White MD APTTon 10-29-2023 aPTT Coag (Bld) [Time] 22.0 s Low 23.0-36.5 [facility] Comment on above: Result Comment: IV Heparin Therapy Range: 66.0-92.0 sec Performed By: #### P TT, HEPXA, CDP, BMPX, PT #### [address] [address] Hospice Consultant: Breezy White MD Basic Metab w/rfx MGon 10-28 Anion gap [Moles/Vol] 12 mmol/L Normal 9-16 [facility] Comment on above: Performed By: #### P TT, HEPXA, CDP, BMPX, PT #### [address] [address] Hospice Consultant: Breezy White MD Calcium [Mass/Vol] 8.9 mg/dL Normal 8.6-10.4 [facility] Comment on above: Performed By: #### P TT, HEPXA, CDP, BMPX, PT #### [address] [address] Hospice Consultant: Breezy White MD Chloride [Moles/Vol] 105 mmol/L Normal 98-107 [facility] Comment on above: Performed By: #### P TT, HEPXA, CDP, BMPX, PT #### [address] [address] Hospice Consultant: Breezy White MD CO2 [Moles/Vol] 22 mmol/L Normal 20-31 [facility] Comment on above: Performed By: #### P TT, HEPXA, CDP, BMPX, PT #### [facility] [address] [place] [address] [phone] Hospice Consultant: Breezy White MD Creatinine [Mass/Vol] 0.8 mg/dL Normal 0.50-0.90 [facility] Comment on above: Performed By: #### P TT, HEPXA, CDP, BMPX, PT #### [address] [phone] Hospice Consultant: Breezy White MD GFR/1.73 sq M.predicted among non-blacks MDRD (S/P/Bld) [Vol rate/Area] mL/min/{1.73_m2} Normal >60 [facility] Comment on above: Result Comment: These [...] P TT, HEPXA, CDP, BMPX, PT #### [address] [phone] Hospice Consultant: Breezy White MD Glucose [Mass/Vol] 82 mg/dL Normal 74-99 [facility] Comment on above: Performed By: #### P TT, HEPXA, CDP, BMPX, PT #### [address] [id number] Hospice Consultant: Breezy White MD Potassium [Moles/Vol] 4.0 mmol/L Normal 3.7-5.3 [facility] Comment on above: Performed By: #### P TT, HEPXA, CDP, BMPX, PT #### [facility] [address] [place] [address] Hospice Consultant: Breezy White MD Sodium [Moles/Vol] 139 mmol/L Normal 136-145 [facility] Comment on above: Performed By: #### P TT, HEPXA, CDP, BMPX, PT #### [address] [address] Hospice Consultant: Breezy White MD Urea nitrogen [Mass/Vol] 10 mg/dL Normal 6-20 [facility] Comment on above: Performed By: #### P TT, HEPXA, CDP, BMPX, PT #### [place] [address] Hospice Consultant: Breezy White MD CBC with Diffon 10-29-2023 Abs. Basophil <0.03 Normal 0.00-0.20 [facility] Comment on above: Performed By: #### P TT, HEPXA, CDP, BMPX, PT #### [place] [address] Hospice Consultant: Breezy White MD Abs.Imm.Granulocyte <0.03 Normal 0.00-0.30 [facility] Comment on above: Performed By: #### P TT, HEPXA, CDP, BMPX, PT #### [place] [address] Hospice Consultant: Breezy White MD Abs.Neutrophil (Seg) 2.93 k/uL Normal 1.50-8.10 [facility] Comment on above: Performed By: #### P TT, HEPXA, CDP, BMPX, PT #### [address] [address] Hospice Consultant: Breezy White MD Basophils/100 WBC (Bld) 0 % Normal 0-2 [facility] Comment on above: Performed By: #### P TT, HEPXA, CDP, BMPX, PT #### [address] [address] Hospice Consultant: Breezy White MD Eosinophils (Bld) [#/Vol] 0.08 10*3/uL Normal 0.00-0.44 [facility] Comment on above: Performed By: #### P TT, HEPXA, CDP, BMPX, PT #### [address] [address] Hospice Consultant: Breezy White MD Eosinophils/100 WBC (Bld) 2 % Normal 1-4 [facility] Comment on above: Performed By: #### P TT, HEPXA, CDP, BMPX, PT #### [place] [address] Hospice Consultant: Breezy White MD Erythrocyte distribution width (RBC) [Ratio] 12.8 % Normal 11.8-14.4 [facility] Comment on above: Performed By: #### P TT, HEPXA, CDP, BMPX, PT #### [address] [address] Hospice Consultant: Breezy White MD Hematocrit (Bld) [Volume fraction] 38.6 % Normal 36.3-47.1 [facility] Comment on above: Performed By: #### P TT, HEPXA, CDP, BMPX, PT #### [facility] [employer] [address] [place] [address] Hospice Consultant: Breezy White MD Hemoglobin (Bld) [Mass/Vol] 12.5 g/dL Normal 11.9-15.1 [facility] Comment on above: Performed By: #### P TT, HEPXA, CDP, BMPX, PT #### [address] [address] Hospice Consultant: Breezy White MD Immature granulocytes/100 WBC (Bld) 0 % Normal 0 [facility] Comment on above: Performed By: #### P TT, HEPXA, CDP, BMPX, PT #### [address] [address] Hospice Consultant: Breezy White MD Lymphocytes (Bld) [#/Vol] 1.24 10*3/uL Normal 1.10-3.70 [facility] Comment on above: Performed By: #### P TT, HEPXA, CDP, BMPX, PT #### [address] [address] Hospice Consultant: Breezy White MD Lymphocytes/100 WBC (Bld) 27 % Normal 24-43 [facility] Comment on above: Performed By: #### P TT, HEPXA, CDP, BMPX, PT #### [address] [address] Hospice Consultant: Breezy White MD MCH (RBC) [Entitic mass] 31.9 pg Normal 25.2-33.5 [facility] Comment on above: Performed By: #### P TT, HEPXA, CDP, BMPX, PT #### [address] [address] Hospice Consultant: Breezy White MD MCHC (RBC) [Mass/Vol] 32.4 g/dL Normal 28.4-34.8 [facility] Comment on above: Performed By: #### P TT, HEPXA, CDP, BMPX, PT #### [address] [address] Hospice Consultant: Breezy White MD MCV (RBC) [Entitic vol] 98.5 fL Normal 82.6-102.9 [facility] Comment on above: Performed By: #### P TT, HEPXA, CDP, BMPX, PT #### [address] [address] Hospice Consultant: Breezy White MD Monocytes (Bld) [#/Vol] 0.35 10*3/uL Normal 0.10-1.20 [facility] Comment on above: Performed By: #### P TT, HEPXA, CDP, BMPX, PT #### [address] [address] Hospice Consultant: Breezy White MD Monocytes/100 WBC (Bld) 8 % Normal 3-12 [facility] Comment on above: Performed By: #### P TT, HEPXA, CDP, BMPX, PT #### [address] [address] Hospice Consultant: Breezy White MD Neutrophil (Seg) 63 % Normal 36-65 [facility] Comment on above: Performed By: #### P TT, HEPXA, CDP, BMPX, PT #### [address] [address] Hospice Consultant: Breezy White MD NRBC Automated 0.0 per 100 WBC Normal 0.0 [facility] Comment on above: Performed By: #### P TT, HEPXA, CDP, BMPX, PT #### [address] [address] Hospice Consultant: Breezy White MD Platelet mean volume (Bld) [Entitic vol] 10.2 fL Normal 8.1-13.5 [facility] Comment on above: Performed By: #### P TT, HEPXA, CDP, BMPX, PT #### [address] [address] Hospice Consultant: Breezy White MD Platelets (Bld) [#/Vol] 152 10*3/uL Normal 138-453 [facility] Comment on above: Performed By: #### P TT, HEPXA, CDP, BMPX, PT #### [address] [address] Hospice Consultant: Breezy White MD RBC (Bld) [#/Vol] 3.92 10*6/uL Low 3.95-5.11 [facility] Comment on above: Performed By: #### P TT, HEPXA, CDP, BMPX, PT #### [facility] [employer] [address] [place] [address] [phone] Hospice Consultant: Breezy White MD WBC (Bld) [#/Vol] 4.6 10*3/uL Normal 3.5-11.3 [facility] Comment on above: Performed By: #### P TT, HEPXA, CDP, BMPX, PT #### [facility] [address] [place] [address] [phone] Hospice Consultant: Breezy White MD Heparin Anti-Xaon 10-29-2023 Heparin Anti-Xa 1.59 IU/L Normal [facility] Comment on above: Performed By: #### P TT, HEPXA, CDP, BMPX, PT #### [facility] [address] [place] [address] [phone] Hospice Consultant: Breezy White MD Laboratory - Coagulationon 0 10-29-2023 aPTT Coag (Bld) [Time] 102.5 s 48.2-68.6 [facility] Comment on above: RESULTS CALLED TO YAMILE WAGNER RN @BY Tanja Jj at 0615 PTon 10-29-2023 INR Coag (PPP) [Relative time] 1.1 {INR} Normal [facility] Comment on above: Result Comment: Therapeutic Range: Moderate Anticoagulant Intensity: INR = 2.0-3.0 High Anticoagulant Intensity: INR = 2.5-3.5 Performed By: #### P TT, HEPXA, CDP, BMPX, PT #### [address] [phone] Hospice Consultant: Breezy White MD PT Coag (PPP) [Time] 13.8 s Normal 11.7-14.9 [facility] Comment on above: Performed By: #### P TT, HEPXA, CDP, BMPX, PT #### [employer] [place] [phone] Hospice Consultant: Breezy White MD Activated partial thrombopla stin time (aPTT) in platelet poor plasma by coagulation aon 10-28-2023 aPTT Coag (PPP) [Time] 26.7 s 22.3-36.2 [facility] Basophils Auto (Bld) [#/Vol] on 10-28-2023 Basophils (Bld) [#/Vol] 0.0 10 3/uL 0.0-0.1 [facility] Basophils/100 WBC Auto (Bld) on 10-28-2023 Basophils/100 WBC (Bld) 0.4 % 0.2-2.0 [facility] Eosinophils/100 WBC Auto (Bl d)on 10-28-2023 Eosinophils/100 WBC (Bld) 1.1 % 0.9-7.0 [facility] Erythrocyte distribution wid th Auto (RBC) [Ratio]on 10-28-2023 Erythrocyte distribution width (RBC) [Ratio] 12.8 % 11.0-15.0 [facility] Estimated glomerular filtrat ion rate (GFR) non- Americanon 10-28-2023 GFR/1.73 sq M.predicted among non-blacks MDRD (S/P/Bld) [Vol rate/Area] mL/min/{1.73_m2} >=60 [facility] Globulin Calc (S) [Mass/Vol] on 10-28-2023 Globulin (S) [Mass/Vol] 3.6 g/dL [facility] Hematocrit Auto (Bld) [Volum e fraction]on 10-28-2023 Hematocrit (Bld) [Volume fraction] 35.3 % 36.0-48.0 [facility] Hemoglobin [Mass/volume] in Bloodon 10-28-2023 Hemoglobin (Bld) [Mass/Vol] 11.6 g/dL 12.0-16.0 [facility] INR in Platelet poor plasma by Coagulation assayon 10-28-2023 INR Coag (PPP) [Relative time] 0.98 {INR} [facility] Comment on above: DESIRED INR:2.0-3.0 CONDITIONS NOT LISTED BELOW2.5-3.5 FOR PROSTHETIC HEART VALVE REPLACEMENT2.5-3.5 RECURRENT THROMBOSIS Laboratory - Chemistry and C hemistry - challengeon 10-28-2023 Albumin [Mass/Vol] 3.2 g/dL 3.4-5.0 [facility] ALP [Catalytic activity/Vol] 82 U/L 46-116 [facility] ALT [Catalytic activity/Vol] 12 U/L 14-59 [facility] AST [Catalytic activity/Vol] 15 U/L 15-37 [facility] Bilirubin [Mass/Vol] 0.4 mg/dL 0.2-1.0 [facility] Calcium [Mass/Vol] 9.1 mg/dL 8.5-10.1 [facility] Chloride [Moles/Vol] 107 mmol/L 98-107 [facility] CO2 [Moles/Vol] 27.8 mmol/L 21.0-32.0 [facility] Creatinine [Mass/Vol] 0.92 mg/dL 0.55-1.02 [facility] GFR/1.73 sq M.predicted MDRD (S/P/Bld) [Vol rate/Area] mL/min/{1.73_m2} >=60 [facility] Glucose [Mass/Vol] 90 mg/dL 74-106 [facility] Natriuretic peptide B (Bld) [Mass/Vol] 152.0 pg/mL <=450.0 [facility] Potassium [Moles/Vol] 4.0 mmol/L 3.5-5.1 [facility] Protein [Mass/Vol] 6.8 g/dL 6.4-8.2 [facility] Sodium [Moles/Vol] 141 mmol/L 136-145 [facility] Urea nitrogen [Mass/Vol] 14.0 mg/dL 7.0-18.0 [facility] Urea nitrogen/Creatinine [Mass ratio] 15.2 mg/mg [facility] Laboratory - Hematology and Cell countson 10-28-2023 Immature granulocytes/100 WBC (Bld) 0.2 % 0.0-0.5 [facility] Leukocytes [#/volume] correc nneka for nucleated erythrocytes in Blood by Automated counon 10-28-2023 WBC corrected for nucl RBC Auto (Bld) [#/Vol] 5.5 10 3/uL 4.0-11.0 [facility] Lymphocytes Auto (Bld) [#/Vo l]on 10-28-2023 Lymphocytes (Bld) [#/Vol] 1.4 10 3/uL 1.2-3.8 [facility] Lymphocytes/100 WBC Auto (Bl d)on 10-28-2023 Lymphocytes/100 WBC (Bld) 25.2 % 20.5-60.0 [facility] MCH Auto (RBC) [Entitic mass ]on 10-28-2023 MCH (RBC) [Entitic mass] 31.8 pg 26.7-34.0 [facility] MCHC Auto (RBC) [Mass/Vol]on 10-28-2023 MCHC (RBC) [Mass/Vol] 32.9 g/dL 29.9-35.2 [facility] MCV Auto (RBC) [Entitic vol] on 10-28-2023 MCV (RBC) [Entitic vol] 96.7 fL 81.0-99.0 [facility] Monocytes Auto (Bld) [#/Vol] on 10-28-2023 Monocytes (Bld) [#/Vol] 0.4 10 3/uL 0.3-0.8 [facility] Monocytes/100 WBC Auto (Bld) on 10-28-2023 Monocytes/100 WBC (Bld) 7.3 % 1.7-12.0 [facility] Neutrophils Auto (Bld) [#/Vo l]on 10-28-2023 Neutrophils (Bld) [#/Vol] 3.6 10 3/uL 1.4-6.5 [facility] Neutrophils/100 WBC Auto (Bl d)on 10-28-2023 Neutrophils/100 WBC (Bld) 65.8 % 43.0-75.0 [facility] No Panel Informationon 10-27 Eosinophils # (Auto) 0.1 10 3/uL 0.0-0.7 [facility] Immature Granulocyte # (Auto) 0.01 10 3/uL 0.00-0.03 [facility] Troponin I High Sensitivity 4.1 pg/mL 4.0-51.3 [facility] Comment on above: CUT-OFF POINTS HAVE [...] volume (Bld) [Entitic vol] 9.4 fL 9.5-13.5 [facility] Platelets Auto (Bld) [#/Vol] on 10-28-2023 Platelets (Bld) [#/Vol] 154 10 3/uL 150-450 [facility] Prothrombin time (PT)on PT Coag (PPP) [Time] 10.4 s 9.0-11.6 [facility] RBC Auto (Bld) [#/Vol]on RBC (Bld) [#/Vol] 3.65 10 6/uL 4.20-5.40 [facility] Serum or plasma albumin/glob ulin mass ratioon 10-28-2023 Albumin/Globulin [Mass ratio] 0.9 {ratio} [facility] Serum or plasma anion gap de terminationon 10-28-2023 Anion gap [Moles/Vol] 10.2 mmol/L [facility] Basophils Auto (Bld) [#/Vol] on 10-27-2023 Basophils (Bld) [#/Vol] 0.0 10 3/uL 0.0-0.1 [facility] Basophils/100 WBC Auto (Bld) on 10-27-2023 Basophils/100 WBC (Bld) 0.6 % 0.2-2.0 [facility] Eosinophils/100 WBC Auto (Bl d)on 10-27-2023 Eosinophils/100 WBC (Bld) 1.9 % 0.9-7.0 [facility] Erythrocyte distribution wid th Auto (RBC) [Ratio]on 10-27-2023 Erythrocyte distribution width (RBC) [Ratio] 13.0 % 11.0-15.0 [facility] Estimated glomerular filtrat ion rate (GFR) non- Americanon 10-27-2023 GFR/1.73 sq M.predicted among non-blacks MDRD (S/P/Bld) [Vol rate/Area] mL/min/{1.73_m2} >=60 [facility] Globulin Calc (S) [Mass/Vol] on 10-27-2023 Globulin (S) [Mass/Vol] 3.3 g/dL [facility] Hematocrit Auto (Bld) [Volum e fraction]on 10-27-2023 Hematocrit (Bld) [Volume fraction] 34.1 % 36.0-48.0 [facility] Hemoglobin [Mass/volume] in Bloodon 10-27-2023 Hemoglobin (Bld) [Mass/Vol] 11.0 g/dL 12.0-16.0 [facility] INR in Platelet poor plasma by Coagulation assayon 10-27-2023 INR Coag (PPP) [Relative time] 1.02 {INR} [facility] Comment on above: DESIRED INR:2.0-3.0 CONDITIONS NOT LISTED BELOW2.5-3.5 FOR PROSTHETIC HEART VALVE REPLACEMENT2.5-3.5 RECURRENT THROMBOSIS Laboratory - Chemistry and C hemistry - challengeon 10-27-2023 Albumin [Mass/Vol] 2.8 g/dL 3.4-5.0 [facility] ALP [Catalytic activity/Vol] 74 U/L 46-116 [facility] ALT [Catalytic activity/Vol] 12 U/L 14-59 [facility] AST [Catalytic activity/Vol] 11 U/L 15-37 [facility] Bilirubin [Mass/Vol] 0.5 mg/dL 0.2-1.0 [facility] Calcium [Mass/Vol] 9.0 mg/dL 8.5-10.1 [facility] Chloride [Moles/Vol] 106 mmol/L 98-107 [facility] CO2 [Moles/Vol] 25.5 mmol/L 21.0-32.0 [facility] Creatinine [Mass/Vol] 0.76 mg/dL 0.55-1.02 [facility] GFR/1.73 sq M.predicted MDRD (S/P/Bld) [Vol rate/Area] mL/min/{1.73_m2} >=60 [facility] Glucose [Mass/Vol] 87 mg/dL 74-106 [facility] Lactate [Moles/Vol] 1.1 mmol/L 0.4-2.0 [facility] Potassium [Moles/Vol] 4.2 mmol/L 3.5-5.1 [facility] Protein [Mass/Vol] 6.1 g/dL 6.4-8.2 [facility] Sodium [Moles/Vol] 140 mmol/L 136-145 [facility] Urea nitrogen [Mass/Vol] 8.0 mg/dL 7.0-18.0 [facility] Urea nitrogen/Creatinine [Mass ratio] 10.5 mg/mg [facility] Laboratory - Coagulationon 0 10-27-2023 aPTT Coag (Bld) [Time] 81.9 s 48.2-68.6 [facility] Comment on above: RESULTS CALLED TO Lin COFFEY)@BY Estela Montanez MLT at 0504 Laboratory - Hematology and Cell countson 10-27-2023 Immature granulocytes/100 WBC (Bld) 0.2 % 0.0-0.5 [facility] Leukocytes [#/volume] correc nneka for nucleated erythrocytes in Blood by Automated counon 10-27-2023 WBC corrected for nucl RBC Auto (Bld) [#/Vol] 4.7 10 3/uL 4.0-11.0 [facility] Lymphocytes Auto (Bld) [#/Vo l]on 10-27-2023 Lymphocytes (Bld) [#/Vol] 1.8 10 3/uL 1.2-3.8 [facility] Lymphocytes/100 WBC Auto (Bl d)on 10-27-2023 Lymphocytes/100 WBC (Bld) 37.7 % 20.5-60.0 [facility] MCH Auto (RBC) [Entitic mass ]on 10-27-2023 MCH (RBC) [Entitic mass] 31.4 pg 26.7-34.0 [facility] MCHC Auto (RBC) [Mass/Vol]on 10-27-2023 MCHC (RBC) [Mass/Vol] 32.3 g/dL 29.9-35.2 [facility] MCV Auto (RBC) [Entitic vol] on 10-27-2023 MCV (RBC) [Entitic vol] 97.4 fL 81.0-99.0 [facility] Monocytes Auto (Bld) [#/Vol] on 10-27-2023 Monocytes (Bld) [#/Vol] 0.3 10 3/uL 0.3-0.8 [facility] Monocytes/100 WBC Auto (Bld) on 10-27-2023 Monocytes/100 WBC (Bld) 7.2 % 1.7-12.0 [facility] Neutrophils Auto (Bld) [#/Vo l]on 10-27-2023 Neutrophils (Bld) [#/Vol] 2.5 10 3/uL 1.4-6.5 [facility] Neutrophils/100 WBC Auto (Bl d)on 10-27-2023 Neutrophils/100 WBC (Bld) 52.4 % 43.0-75.0 [facility] No Panel Informationon 10-26 Eosinophils # (Auto) 0.1 10 3/uL 0.0-0.7 [facility] Immature Granulocyte # (Auto) 0.01 10 3/uL 0.00-0.03 [facility] Platelet mean volume Auto (B ld) [Entitic vol]on 10-27-2023 Platelet mean volume (Bld) [Entitic vol] 9.9 fL 9.5-13.5 [facility] Platelets Auto (Bld) [#/Vol] on 10-27-2023 Platelets (Bld) [#/Vol] 122 10 3/uL 150-450 [facility] Prothrombin time (PT)on PT Coag (PPP) [Time] 10.8 s 9.0-11.6 [facility] RBC Auto (Bld) [#/Vol]on RBC (Bld) [#/Vol] 3.50 10 6/uL 4.20-5.40 [facility] Serum or plasma albumin/glob ulin mass ratioon 10-27-2023 Albumin/Globulin [Mass ratio] 0.8 {ratio} [facility] Serum or plasma anion gap de terminationon 10-27-2023 Anion gap [Moles/Vol] 12.7 mmol/L [facility] Amorphous urine sedimenton 0 10-26-2023 Amorphous sediment LM Ql (Urine sed) FEW [facility] Automated epithelial cells c ount in urine sediment (number/area)on 10-26-2023 Epithelial cells Auto (Urine sed) [#/Area] MANY #/LPF NONE/RARE [facility] Bacteria [Presence] in Urine by Automatedon 10-26-2023 Bacteria Auto Ql (U) NONE SEEN #/HPF NONE SEEN [facility] Basophils Auto (Bld) [#/Vol] on 10-26-2023 Basophils (Bld) [#/Vol] 0.0 10 3/uL 0.0-0.1 [facility] Basophils/100 WBC Auto (Bld) on 10-26-2023 Basophils/100 WBC (Bld) 0.5 % 0.2-2.0 [facility] Bilirubin Auto test strip (U ) [Mass/Vol]on 10-26-2023 Bilirubin (U) [Mass/Vol] Negative NEGATIVE [facility] Casts typing in urine sedime nt by light microscopyon 10-26-2023 Casts LM Nom (Urine sed) NONE SEEN #/LPF NONE SEEN [facility] Eosinophils/100 WBC Auto (Bl d)on 10-26-2023 Eosinophils/100 WBC (Bld) 1.4 % 0.9-7.0 [facility] Erythrocyte distribution wid th Auto (RBC) [Ratio]on 10-26-2023 Erythrocyte distribution width (RBC) [Ratio] 12.7 % 11.0-15.0 [facility] Estimated glomerular filtrat ion rate (GFR) non- Americanon 10-26-2023 GFR/1.73 sq M.predicted among non-blacks MDRD (S/P/Bld) [Vol rate/Area] mL/min/{1.73_m2} >=60 [facility] Globulin Calc (S) [Mass/Vol] on 10-26-2023 Globulin (S) [Mass/Vol] 4.2 g/dL [facility] HCG ( test) IA.rapi d Ql (U)on 10-26-2023 HCG ( test) Ql (U) Negative NEGATIVE [facility] Hematocrit Auto (Bld) [Volum e fraction]on 10-26-2023 Hematocrit (Bld) [Volume fraction] 38.5 % 36.0-48.0 [facility] Hemoglobin [Mass/volume] in Bloodon 10-26-2023 Hemoglobin (Bld) [Mass/Vol] 12.7 g/dL 12.0-16.0 [facility] INR in Platelet poor plasma by Coagulation assayon 10-26-2023 INR Coag (PPP) [Relative time] 0.96 {INR} [facility] Comment on above: DESIRED INR:2.0-3.0 CONDITIONS NOT LISTED BELOW2.5-3.5 FOR PROSTHETIC HEART VALVE REPLACEMENT2.5-3.5 RECURRENT THROMBOSIS Laboratory - Chemistry and C hemistry - challengeon 10-26-2023 Glucose (U) [Mass/Vol] Negative NEGATIVE [facility] Ketones Ql (U) Negative NEGATIVE [facility] pH (U) 6.0 [pH] 5.0-9.0 [facility] Specific gravity (U) [Rel density] >=1.030 1.005-1.025 [facility] Urobilinogen Qn (U) 1.0 {José'U}/dL 0.2-1.0 [facility] Albumin [Mass/Vol] 3.4 g/dL 3.4-5.0 [facility] ALP [Catalytic activity/Vol] 98 U/L 46-116 [facility] ALT [Catalytic activity/Vol] 11 U/L 14-59 [facility] AST [Catalytic activity/Vol] 9 U/L 15-37 [facility] Bilirubin [Mass/Vol] 0.5 mg/dL 0.2-1.0 [facility] Calcium [Mass/Vol] 9.5 mg/dL 8.5-10.1 [facility] Chloride [Moles/Vol] 104 mmol/L 98-107 [facility] CO2 [Moles/Vol] 25.6 mmol/L 21.0-32.0 [facility] Creatinine [Mass/Vol] 0.94 mg/dL 0.55-1.02 [facility] GFR/1.73 sq M.predicted MDRD (S/P/Bld) [Vol rate/Area] mL/min/{1.73_m2} >=60 [facility] Glucose [Mass/Vol] 96 mg/dL 74-106 [facility] Lactate [Moles/Vol] 2.3 mmol/L 0.4-2.0 [facility] Comment on above: RESULTS CALLED TO Vj COFFEY)@BY Estela Montanez MLT at 2012 Natriuretic peptide B (Bld) [Mass/Vol] 55.0 pg/mL <=450.0 [facility] Potassium [Moles/Vol] 3.2 mmol/L 3.5-5.1 [facility] Protein [Mass/Vol] 7.6 g/dL 6.4-8.2 [facility] Sodium [Moles/Vol] 140 mmol/L 136-145 [facility] TSH Qn 3.806 m[IU]/L 0.358-3.740 [facility] Urea nitrogen [Mass/Vol] 10.0 mg/dL 7.0-18.0 [facility] Urea nitrogen/Creatinine [Mass ratio] 10.6 mg/mg [facility] Laboratory - Hematology and Cell countson 10-26-2023 Immature granulocytes/100 WBC (Bld) 0.3 % 0.0-0.5 [facility] Laboratory - Specimen inform ationon 10-26-2023 Appearance (U) CLEAR CLEAR [facility] Color (U) LT. YELLOW YELLOW [facility] Laboratory - Urinalysison Leukocyte esterase Test strip Ql (U) SMALL NEGATIVE [facility] Nitrite Ql (U) Negative NEGATIVE [facility] Protein Ql (U) Negative NEG/TRACE [facility] Leukocytes [#/area] in Urine sediment by Automated counton 10-26-2023 WBC Auto (Urine sed) [#/Area] NONE SEEN #/HPF 0-2 [facility] Leukocytes [#/area] in Urine sediment by Microscopy high power fieldon 10-26-2023 WBC LM.HPF (Urine sed) [#/Area] 5-10 #/HPF NONE SEEN [facility] Leukocytes [#/volume] correc nnkea for nucleated erythrocytes in Blood by Automated counon 10-26-2023 WBC corrected for nucl RBC Auto (Bld) [#/Vol] 6.3 10 3/uL 4.0-11.0 [facility] Lymphocytes Auto (Bld) [#/Vo l]on 10-26-2023 Lymphocytes (Bld) [#/Vol] 1.4 10 3/uL 1.2-3.8 [facility] Lymphocytes/100 WBC Auto (Bl d)on 10-26-2023 Lymphocytes/100 WBC (Bld) 21.8 % 20.5-60.0 [facility] MCH Auto (RBC) [Entitic mass ]on 10-26-2023 MCH (RBC) [Entitic mass] 31.8 pg 26.7-34.0 [facility] MCHC Auto (RBC) [Mass/Vol]on 10-26-2023 MCHC (RBC) [Mass/Vol] 33.0 g/dL 29.9-35.2 [facility] MCV Auto (RBC) [Entitic vol] on 10-26-2023 MCV (RBC) [Entitic vol] 96.5 fL 81.0-99.0 [facility] Monocytes Auto (Bld) [#/Vol] on 10-26-2023 Monocytes (Bld) [#/Vol] 0.5 10 3/uL 0.3-0.8 [facility] Monocytes/100 WBC Auto (Bld) on 10-26-2023 Monocytes/100 WBC (Bld) 7.2 % 1.7-12.0 [facility] Mucus LM Ql (Urine sed)on Mucus Ql (Urine sed) SMALL NONE SEEN [facility] Neutrophils Auto (Bld) [#/Vo l]on 10-26-2023 Neutrophils (Bld) [#/Vol] 4.3 10 3/uL 1.4-6.5 [facility] Neutrophils/100 WBC Auto (Bl d)on 10-26-2023 Neutrophils/100 WBC (Bld) 68.8 % 43.0-75.0 [facility] No Panel Informationon 10-25 Urine Culture Reflexed YES [facility] Urine Microscopic Review YES [facility] Eosinophils # (Auto) 0.1 10 3/uL 0.0-0.7 [facility] Immature Granulocyte # (Auto) 0.02 10 3/uL 0.00-0.03 [facility] Troponin I High Sensitivity <4.0 pg/mL 4.0-51.3 [facility] Comment on above: CUT-OFF POINTS HAVE [...] volume (Bld) [Entitic vol] 9.8 fL 9.5-13.5 [facility] Platelets Auto (Bld) [#/Vol] on 10-26-2023 Platelets (Bld) [#/Vol] 138 10 3/uL 150-450 [facility] Prothrombin time (PT)on PT Coag (PPP) [Time] 10.2 s 9.0-11.6 [facility] RBC Auto (Bld) [#/Vol]on RBC (Bld) [#/Vol] 3.99 10 6/uL 4.20-5.40 [facility] Serum or plasma albumin/glob ulin mass ratioon 10-26-2023 Albumin/Globulin [Mass ratio] 0.8 {ratio} [facility] Serum or plasma anion gap de terminationon 10-26-2023 Anion gap [Moles/Vol] 13.6 mmol/L [facility] Urine hemoglobin detection b y automated test stripon 10-26-2023 Hemoglobin Auto test strip Ql (U) Negative NEGATIVE [facility] Urine sediment crystal ident ification by light microscopyon 10-26-2023 Crystals LM Nom (Urine sed) None Seen #/HPF None Seen [facility] Cardiac Device Check - Remot michael 04-24-2023 Radiology Study observation (narrative) [facility] Work Phone: Cardiac Device Check - Remot eOrdered By: Rita Olivia on 04-24-2023 [facility] Work Phone: Office Visit (Cardiology)on [...] Lead; Status:Active - Perform Order,Retrospective Authorization; Requested for:[id number]; Cardiac pacemaker, Sinus bradycardia, Sinus node dysfunction, Sinus tachycardia Interr. Device Eval - Sngl/Dual/Multiple Pacemaker; Status:Hold For - Scheduling,Retrospective Authorization; Requested for:[id number]; Class 2 obesity with body mass index [...] arrhythmias iss (more content not included)... Normal [facility] Tobacco Screening.on 023 Adult depression screening assessment No [facility] Work Phone: Fall risk assessment a) No falls within the last year [facility] [address] DO Work Phone: [phone] Tobacco use status CP b) No [facility] [address] DO Work Phone: Alanine aminotransferase [En zymatic activity/volume] in Serum or PlasmaOrdered By: Ke Cage on 12-11-2022 ALT [Catalytic activity/Vol] 13 U/L 7- [facility] Albumin [Mass/volume] in Ser um or Plasma by Bromocresol green (BCG) dye binding methoOrdered By: Ke Cage on 12-11-2022 Albumin BCG dye [Mass/Vol] 4.8 g/dL 3.5-5.7 [facility] Alkaline phosphatase [Enzyma tic activity/volume] in Serum or PlasmaOrdered By: Ke Cage on 12-11-2022 ALP [Catalytic activity/Vol] 83 U/L 34-104 [facility] Amphetamine Screen Ql (U)Ord ered By: Ke Cage on 12-11-2022 Amphetamines Ql (U) Negative Negative [facility] Aspartate aminotransferase [ Enzymatic activity/volume] in Serum or PlasmaOrdered By: Ke Cage on 12-11-2022 AST [Catalytic activity/Vol] 20 U/L 13-39 [facility] Automated erythrocytes count in urine sediment (number/area)Ordered By: Ke Cage on 12-11-2022 RBC Auto (Urine sed) [#/Area] 0-1 [HPF] 0-4 [facility] Automated leukocytes count i n urine sediment (number/area)Ordered By: Ke Cage on 12-11-2022 WBC Auto (Urine sed) [#/Area] 5-9 [HPF] 0-4 [facility] Barbiturates [Presence] in U rine by Screen methodOrdered By: Ke Cage on 12-11-2022 Barbiturates Screen Ql (U) Negative Negative [facility] Basophils Auto (Bld) [#/Vol] Ordered By: Ke Cage on 12-11-2022 Basophils (Bld) [#/Vol] 0.0 10*3/uL 0.0-0.2 [facility] Basophils/100 WBC Auto (Bld) Ordered By: Ke Cage on 12-11-2022 Basophils/100 WBC (Bld) 0.7 % . [facility] Benzodiazepines Screen Ql (U )Ordered By: Ke Cage on 12-11-2022 Benzodiazepines Ql (U) Negative Negative [facility] Benzoylecgonine [Presence] i n Urine by Screen methodOrdered By: Ke Cage on 12-11-2022 Benzoylecgonine Screen Ql (U) Negative Negative [facility] Bilirubin Auto test strip Ql (U)Ordered By: Ke Cage on 12-11-2022 Bilirubin Ql (U) Negative Negative [facility] Bilirubin.total [Mass/volume ] in Serum or PlasmaOrdered By: Ke Cage on 12-11-2022 Bilirubin [Mass/Vol] 0.6 mg/dL 0.3-1.0 [facility] Calcium [Mass/volume] in Ser um or PlasmaOrdered By: Ke Cage on 12-11-2022 Calcium [Mass/Vol] 9.9 mg/dL 8.6-10.3 [facility] Cannabinoids [Presence] in U rine by Screen methodOrdered By: Ke Cage on 12-11-2022 Cannabinoids Screen Ql (U) Negative Negative [facility] Comment on above: These are unconfirme d results and should not be used for legal purposes. Drug Cut-Off Concentration: AMPH 1000 ng/mL BOO 200 ng/mL HELGA 200 ng/mL COCM 300 ng/mL OP 300 ng/mL PCP 25 ng/mL THC 20 ng/mL Carbon dioxide, total [Moles /volume] in Serum or PlasmaOrdered By: Ke Cage on 12-11-2022 CO2 [Moles/Vol] 24.2 mmol/L 21.0-31.0 [facility] Chloride [Moles/volume] in S mac or PlasmaOrdered By: Ke Cage on 12-11-2022 Chloride [Moles/Vol] 107 mmol/L 98-107 [facility] Cholesterol [Mass/volume] in Serum or PlasmaOrdered By: Eduardo Swain on 12-11-2022 Cholesterol [Mass/Vol] 229 mg/dL 140-200 [facility] Comment on above: Chol less than 200 m g/dl low riskChol 201-239 mg/dl borderline riskChol 240 mg/dl and greater high risk Cholesterol in LDL Calc [Mas s/Vol]Ordered By: Eduardo Swain on 12-11-2022 Cholesterol in LDL [Mass/Vol] 129 mg/dL 0-100 [facility] Comment on above: LDL ATP III CLASSIFI CATIONLDL less than 100 mg/dL OptimalLDL 100-129 mg/dL Near or above optimalLDL 130-159 mg/dL Borderline highLDL 160-189 mg/dL HighLDL greater than 189 mg/dL Very high Cholesterol in VLDL Calc [Ma ss/Vol]Ordered By: Eduardo Swain on 12-11-2022 Cholesterol in VLDL [Mass/Vol] 13 mg/dL [facility] Creatinine [Mass/volume] in Serum or PlasmaOrdered By: Ke Cage on 12-11-2022 Creatinine [Mass/Vol] 0.78 mg/dL 0.60-1.20 [facility] Eosinophils Auto (Bld) [#/Vo l]Ordered By: Ke Cage on 12-11-2022 Eosinophils (Bld) [#/Vol] 0.1 10*3/uL 0.0-0.45 [facility] Eosinophils/100 WBC Auto (Bl d)Ordered By: Ke Cage on 12-11-2022 Eosinophils/100 WBC (Bld) 2.2 % . [facility] Erythrocyte distribution wid th Auto (RBC) [Ratio]Ordered By: Ke Cage on 12-11-2022 Erythrocyte distribution width (RBC) [Ratio] 12.9 % 11.9-15.3 [facility] Ethanol [Mass/volume] in Ser um or PlasmaOrdered By: Ke Cage on 12-11-2022 Ethanol [Mass/Vol] mg/dL [facility] Ethanol [Mass/Vol] TNP [facility] Comment on above: Test not performed Globulin Calc (S) [Mass/Vol] Ordered By: eK Cage on 12-11-2022 Globulin (S) [Mass/Vol] 2.7 g/dL [facility] Glucose [Mass/volume] in Ser um or PlasmaOrdered By: Ke Cage on 12-11-2022 Glucose [Mass/Vol] 87 mg/dL 70-100 [facility] Comment on above: ADA recommended refe rence rangeRandom Glucose Reference Range is dependent on time and content of last meal. Glucose of more than 200 mg/dL in a nonstressed, ambulatory subject supports the diagnosis of Diabetes Mellitus. HCG ( test) IA.rapi d Ql (U)Ordered By: Ke Cage on 12-11-2022 HCG ( test) Ql (U) Negative [facility] Hematocrit Auto (Bld) [Volum e fraction]Ordered By: Ke Cage on 12-11-2022 Hematocrit (Bld) [Volume fraction] 41.8 % 34.0-46.4 [facility] Hemoglobin [Mass/volume] in BloodOrdered By: Ke Cage on 12-11-2022 Hemoglobin (Bld) [Mass/Vol] 14.2 g/dL 11.8-15.4 [facility] Ketones Auto test strip (U) [Mass/Vol]Ordered By: Ke Cage on 12-11-2022 Ketones (U) [Mass/Vol] Negative Negative [facility] Laboratory - UrinalysisOrder ed By: Ke Cage on 12-11-2022 Hyaline casts LM Ql (Urine sed) 0-8 [LPF] 0-8 [facility] Leukocytes [#/volume] correc nneka for nucleated erythrocytes in Blood by Automated counOrdered By: Ke Cage on 12-11-2022 WBC corrected for nucl RBC Auto (Bld) [#/Vol] 5.8 10*3/uL 3.8-11.6 [facility] Lymphocytes Auto (Bld) [#/Vo l]Ordered By: Ke Cage on 12-11-2022 Lymphocytes (Bld) [#/Vol] 1.7 10*3/uL 1.00-4.8 [facility] Lymphocytes/100 WBC Auto (Bl d)Ordered By: Ke Cage on 12-11-2022 Lymphocytes/100 WBC (Bld) 28.6 % . [facility] MCH Auto (RBC) [Entitic mass ]Ordered By: Ke Cage on 12-11-2022 MCH (RBC) [Entitic mass] 32.4 pg 24.7-34.3 [facility] MCHC Auto (RBC) [Mass/Vol]Or dered By: Ke Cage on 12-11-2022 MCHC (RBC) [Mass/Vol] 33.9 g/dL 32.0-35.0 [facility] MCV Auto (RBC) [Entitic vol] Ordered By: Ke Cage on 12-11-2022 MCV (RBC) [Entitic vol] 95.4 fL 80-100 [facility] Monocyte distribution width [Entitic volume] in Blood by AutomatedOrdered By: Ke Cage on 12-11-2022 Monocyte distribution width Auto (Bld) [Entitic vol] 17.61 % 0.00-20.00 [facility] Monocytes Auto (Bld) [#/Vol] Ordered By: Ke Cage on 12-11-2022 Monocytes (Bld) [#/Vol] 0.5 10*3/uL 0.0-0.8 [facility] Monocytes/100 WBC Auto (Bld) Ordered By: Ke Cage on 12-11-2022 Monocytes/100 WBC (Bld) 8.1 % . [facility] Neutrophils Auto (Bld) [#/Vo l]Ordered By: Ke Cage on 12-11-2022 Neutrophils (Bld) [#/Vol] 3.5 10*3/uL 1.8-7.7 [facility] Neutrophils/100 WBC Auto (Bl d)Ordered By: Ke Cage on 12-11-2022 Neutrophils/100 WBC (Bld) 60.4 % . [facility] No Panel InformationOrdered By: Ke Cage on 12-11-2022 Estimated GFR (CKD-EPI) > 60.0 mL/Min [facility] Creatinine Clearance (Chem 119.76 [facility] Nucleated erythrocytes [Pres ence] in Blood by Automated countOrdered By: Ke Cage on 12-11-2022 Nucleated RBC Auto Ql (Bld) 0.1 /100{WBC} 0-0.5 [facility] Opiates [Presence] in Urine by Screen methodOrdered By: Ke Cage on 12-11-2022 Opiates Screen Ql (U) Negative Negative [facility] Phencyclidine Screen Ql (U)O rdered By: Ke Cage on 12-11-2022 Phencyclidine Ql (U) Negative Negative [facility] Platelet mean volume Auto (B ld) [Entitic vol]Ordered By: Ke Cage on 12-11-2022 Platelet mean volume (Bld) [Entitic vol] 7.9 fL 6.3-10.7 [facility] Platelets Auto (Bld) [#/Vol] Ordered By: Ke Cage on 12-11-2022 Platelets (Bld) [#/Vol] 185 10*3/uL 150-450 [facility] Potassium [Moles/volume] in Serum or PlasmaOrdered By: Ke Cage on 12-11-2022 Potassium [Moles/Vol] 3.8 mmol/L 3.5-5.1 [facility] Protein Auto test strip (U) [Mass/Vol]Ordered By: Ke Cage on 12-11-2022 Protein (U) [Mass/Vol] Negative Negative [facility] Protein [Mass/volume] in Ser um or PlasmaOrdered By: Ke Cage on 12-11-2022 Protein [Mass/Vol] 7.5 g/dL 6.4-8.9 [facility] RBC Auto (Bld) [#/Vol]Ordere d By: Ke Cage on 12-11-2022 RBC (Bld) [#/Vol] 4.38 10*6/uL 3.60-5.00 [facility] Serum or plasma albumin/glob ulin mass ratioOrdered By: Ke Cage on 12-11-2022 Albumin/Globulin [Mass ratio] 1.8 {ratio} [facility] Serum or plasma anion gap de terminationOrdered By: Ke Cage on 12-11-2022 Anion gap [Moles/Vol] 12.6 mmol/L 6.0-15.0 [facility] Serum or plasma high density lipoprotein (HDL) cholesterol measurementOrdered By: Eduardo Swain on 12-11-2022 Cholesterol in HDL [Mass/Vol] 87 mg/dL 23-92 [facility] Comment on above: HDL CHOL ATP-III CLA SSIFICATION Cardiovascular RiskHDL > or equal to 60 mg/dL LOWHDL < 40 mg/dL HIGH Serum or plasma total choles terol/high density lipoprotein (HDL) cholesterol mass ratOrdered By: Eduardo Swain on 12-11-2022 Cholesterol.total/Chol esterol in HDL [Mass ratio] 2.6 {ratio} <5.0 [facility] Sodium [Moles/volume] in Ser um or PlasmaOrdered By: Ke Cage on 12-11-2022 Sodium [Moles/Vol] 140 mmol/L 136-145 [facility] Squamous epithelial cells de tection in urine sediment by light microscopyOrdered By: Ke Cage on 12-11-2022 Epithelial cells.squamous LM Ql (Urine sed) 3-4 [HPF] 0-2 [facility] Thyrotropin [Units/volume] i n Serum or PlasmaOrdered By: Eduardo Swain on 12-11-2022 TSH Qn 1.24 m[IU]/L 0.45-5.33 [facility] Triglyceride [Mass/volume] i n Serum or PlasmaOrdered By: Eduardo Swain on 12-11-2022 Triglyceride [Mass/Vol] 66 mg/dL 0-149 [facility] Comment on above: TRIG ATP III CLASSIF ICATIONTRIG less than 150 mg/dL NormalTRIG 150-199 mg/dL Borderline highTRIG 200-500 mg/dL High TRIG greater than 500 mg/dL Very highStandard traceable to the Center for Disease Conrtrol and Prevention (CDC) test method. Urea nitrogen [Mass/volume] in Serum or PlasmaOrdered By: Ke Cage on 12-11-2022 Urea nitrogen [Mass/Vol] 7 mg/dL 7-25 [facility] Urine appearanceOrdered By: Ke Cage on 12-11-2022 Appearance (U) Slightly cloudy Clear [facility] Urine bacteria detection by automated methodOrdered By: Ke Cage on 12-11-2022 Bacteria Auto Ql (U) None seen None Seen [facility] Urine colorOrdered By: Ke Cage on 12-11-2022 Color (U) Yellow Yellow [facility] Urine culture routineOrdered By: Ke Cage on 12-11-2022 Bacteria identified Cx Nom (U) 2 Days [facility] Urine glucose measurement by automated test strip (mass/volume)Ordered By: Ke Cage on 12-11-2022 Glucose Auto test strip (U) [Mass/Vol] Normal mg/dL Normal [facility] Urine hemoglobin detection b y automated test stripOrdered By: Ke Cage on 12-11-2022 Hemoglobin Auto test strip Ql (U) Negative Negative [facility] Urine leukocyte esterase det ection by automated test stripOrdered By: Ke Cage on 12-11-2022 Leukocyte esterase Auto test strip Ql (U) 2+ Negative [facility] Urine nitrite detection by a utomated test stripOrdered By: Ke Cage on 12-11-2022 Nitrite Auto test strip Ql (U) Negative Negative [facility] Urobilinogen Auto test strip (U) [Mass/Vol]Ordered By: Ke Cage on 12-11-2022 Urobilinogen (U) [Mass/Vol] Normal mg/dL Normal [facility] Vitamin D+Metabolites [Mass/ volume] in Serum or PlasmaOrdered By: Eduardo Swain on 12-11-2022 Vitamin D+Metabolites [Mass/Vol] 36.5 ng/mL 30-100 [facility] Comment on above: VITAMIN D STATUS 25( [place])VITAMIN D RANGE (ng/mL) Deficient <20 Insufficient 20 to <30Sufficient 30 to 100Reference: Franklyn MF,Benjamin GRAF, Andreina MARQUEZ, et al. Evaluation,treatment, and prevention of vitamin D deficiency; an Endocrine Society clinical practice guideline. JCEM. 2010; 96(7):1911-30. WBC Auto (Bld) [#/Vol]Ordere d By: Ke Cage on 12-11-2022 WBC (Bld) [#/Vol] 5.8 10*3/uL 3.8-11.6 [facility] pH Auto test strip (U)Ordere d By: Ke Cage on 12-11-2022 pH (U) 1.015 [pH] 1.001-1.030 [facility] pH (U) 6.0 [pH] 5.0-9.0 [facility] Basophils Auto (Bld) [#/Vol] Ordered By: Afshan Hines on 11-01-2022 Basophils (Bld) [#/Vol] 0.0 10*3/uL 0.0-0.2 [facility] Basophils/100 WBC Auto (Bld) Ordered By: Afshan Hines on 11-01-2022 Basophils/100 WBC (Bld) 0.9 % . [facility] Calcium [Mass/volume] in Ser um or PlasmaOrdered By: Afshan Hines on 11-01-2022 Calcium [Mass/Vol] 8.8 mg/dL 8.6-10.3 [facility] Carbon dioxide, total [Moles /volume] in Serum or PlasmaOrdered By: Afshan Hines on 11-01-2022 CO2 [Moles/Vol] 26.4 mmol/L 21.0-31.0 [facility] Chloride [Moles/volume] in S mac or PlasmaOrdered By: Afshan Hines on 11-01-2022 Chloride [Moles/Vol] 107 mmol/L 98-107 [facility] Creatinine [Mass/volume] in Serum or PlasmaOrdered By: Afshan Hines on 11-01-2022 Creatinine [Mass/Vol] 0.82 mg/dL 0.60-1.20 [facility] Eosinophils Auto (Bld) [#/Vo l]Ordered By: Afshan Hines on 11-01-2022 Eosinophils (Bld) [#/Vol] 0.2 10*3/uL 0.0-0.45 [facility] Eosinophils/100 WBC Auto (Bl d)Ordered By: Afshan Hines on 11-01-2022 Eosinophils/100 WBC (Bld) 4.2 % . [facility] Erythrocyte distribution wid th Auto (RBC) [Ratio]Ordered By: Afshan Hines on 11-01-2022 Erythrocyte distribution width (RBC) [Ratio] 12.9 % 11.9-15.3 [facility] Glucose [Mass/volume] in Ser um or PlasmaOrdered By: Afshan Hines on 11-01-2022 Glucose [Mass/Vol] 74 mg/dL 70-100 [facility] Comment on above: ADA recommended refe rence rangeRandom Glucose Reference Range is dependent on time and content of last meal. Glucose of more than 200 mg/dL in a nonstressed, ambulatory subject supports the diagnosis of Diabetes Mellitus. Hematocrit Auto (Bld) [Volum e fraction]Ordered By: Afshan Hines on 11-01-2022 Hematocrit (Bld) [Volume fraction] 37.5 % 34.0-46.4 [facility] Hemoglobin [Mass/volume] in BloodOrdered By: Afshan Hines on 11-01-2022 Hemoglobin (Bld) [Mass/Vol] 12.5 g/dL 11.8-15.4 [facility] Leukocytes [#/volume] correc nneka for nucleated erythrocytes in Blood by Automated counOrdered By: Afshan Hines on 11-01-2022 WBC corrected for nucl RBC Auto (Bld) [#/Vol] 5.1 10*3/uL 3.8-11.6 [facility] Lymphocytes Auto (Bld) [#/Vo l]Ordered By: Afshan Hines on 11-01-2022 Lymphocytes (Bld) [#/Vol] 1.8 10*3/uL 1.00-4.8 [facility] Lymphocytes/100 WBC Auto (Bl d)Ordered By: Afshan Hines on 11-01-2022 Lymphocytes/100 WBC (Bld) 34.7 % . [facility] MCH Auto (RBC) [Entitic mass ]Ordered By: Afshan Hines on 11-01-2022 MCH (RBC) [Entitic mass] 32.2 pg 24.7-34.3 [facility] MCHC Auto (RBC) [Mass/Vol]Or dered By: Afshan Hines on 11-01-2022 MCHC (RBC) [Mass/Vol] 33.4 g/dL 32.0-35.0 [facility] MCV Auto (RBC) [Entitic vol] Ordered By: Afshan Hines on 11-01-2022 MCV (RBC) [Entitic vol] 96.5 fL 80-100 [facility] Monocytes Auto (Bld) [#/Vol] Ordered By: Afshan Hines on 11-01-2022 Monocytes (Bld) [#/Vol] 0.3 10*3/uL 0.0-0.8 [facility] Monocytes/100 WBC Auto (Bld) Ordered By: Afshan Hines on 11-01-2022 Monocytes/100 WBC (Bld) 6.1 % . [facility] Neutrophils Auto (Bld) [#/Vo l]Ordered By: Afshan Hines on 11-01-2022 Neutrophils (Bld) [#/Vol] 2.8 10*3/uL 1.8-7.7 [facility] Neutrophils/100 WBC Auto (Bl d)Ordered By: Afshan Hines on 11-01-2022 Neutrophils/100 WBC (Bld) 54.1 % . [facility] No Panel InformationOrdered By: Afshan Hines on 11-01-2022 Estimated GFR (CKD-EPI) > 60.0 mL/Min [facility] Creatinine Clearance (Chem 114.96 [facility] Nucleated erythrocytes [Pres ence] in Blood by Automated countOrdered By: Afshan Hines on 11-01-2022 Nucleated RBC Auto Ql (Bld) 0.1 /100{WBC} 0-0.5 [facility] Platelet mean volume Auto (B ld) [Entitic vol]Ordered By: Afshan Hines on 11-01-2022 Platelet mean volume (Bld) [Entitic vol] 7.8 fL 6.3-10.7 [facility] Platelets Auto (Bld) [#/Vol] Ordered By: Afshan Hines on 11-01-2022 Platelets (Bld) [#/Vol] 184 10*3/uL 150-450 [facility] Potassium [Moles/volume] in Serum or PlasmaOrdered By: Afshan Hines on 11-01-2022 Potassium [Moles/Vol] 4.0 mmol/L 3.5-5.1 [facility] RBC Auto (Bld) [#/Vol]Ordere d By: Afshan Hines on 11-01-2022 RBC (Bld) [#/Vol] 3.89 10*6/uL 3.60-5.00 [facility] Serum or plasma anion gap de terminationOrdered By: Afshan Hines on 11-01-2022 Anion gap [Moles/Vol] 10.6 mmol/L 6.0-15.0 [facility] Sodium [Moles/volume] in Ser um or PlasmaOrdered By: Afshan Hines on 11-01-2022 Sodium [Moles/Vol] 140 mmol/L 136-145 [facility] Urea nitrogen [Mass/volume] in Serum or PlasmaOrdered By: Afshan Hines on 11-01-2022 Urea nitrogen [Mass/Vol] 14 mg/dL 7-25 [facility] Vitamin B12 ser/plasOrdered By: Afshan Hines on 11-01-2022 Cobalamin (Vitamin B12) [Mass/Vol] 205 pg/mL 180-914 [facility] WBC Auto (Bld) [#/Vol]Ordere d By: Afshan Hines on 11-01-2022 WBC (Bld) [#/Vol] 5.1 10*3/uL 3.8-11.6 [facility] Alanine aminotransferase [En zymatic activity/volume] in Serum or PlasmaOrdered By: Afshan Hines on 2022 ALT [Catalytic activity/Vol] 10 U/L 7-52 [facility] Albumin [Mass/volume] in Ser um or Plasma by Bromocresol green (BCG) dye binding methoOrdered By: Afshan Hines on 2022 Albumin BCG dye [Mass/Vol] 3.4 g/dL 3.5-5.7 [facility] Alkaline phosphatase [Enzyma tic activity/volume] in Serum or PlasmaOrdered By: Afshan Hines on 2022 ALP [Catalytic activity/Vol] 66 U/L 34-104 [facility] Aspartate aminotransferase [ Enzymatic activity/volume] in Serum or PlasmaOrdered By: Afshan Hines on 2022 AST [Catalytic activity/Vol] 15 U/L 13-39 [facility] Bilirubin.total [Mass/volume ] in Serum or PlasmaOrdered By: Afshan Hines on 2022 Bilirubin [Mass/Vol] 0.7 mg/dL 0.3-1.0 [facility] Globulin Calc (S) [Mass/Vol] Ordered By: Afshan Hines on 2022 Globulin (S) [Mass/Vol] 2.2 g/dL [facility] Protein [Mass/volume] in Ser um or PlasmaOrdered By: Afshan Hines on 2022 Protein [Mass/Vol] 5.6 g/dL 6.4-8.9 [facility] Serum or plasma albumin/glob ulin mass ratioOrdered By: Afshan Hines on 2022 Albumin/Globulin [Mass ratio] 1.5 {ratio} [facility] Cholesterol [Mass/volume] in Serum or PlasmaOrdered By: Nimesh Cerda on 10-29-2022 Cholesterol [Mass/Vol] 181 mg/dL 140-200 [facility] Comment on above: Chol less than 200 m g/dl low riskChol 201-239 mg/dl borderline riskChol 240 mg/dl and greater high risk Cholesterol in LDL Calc [Mas s/Vol]Ordered By: Nimesh Cerda on 10-29-2022 Cholesterol in LDL [Mass/Vol] 99 mg/dL 0-100 [facility] Comment on above: LDL ATP III CLASSIFI CATIONLDL less than 100 mg/dL OptimalLDL 100-129 mg/dL Near or above optimalLDL 130-159 mg/dL Borderline highLDL 160-189 mg/dL HighLDL greater than 189 mg/dL Very high Cholesterol in VLDL Calc [Ma ss/Vol]Ordered By: Nimesh Cerda on 10-29-2022 Cholesterol in VLDL [Mass/Vol] 18 mg/dL [facility] Serum or plasma high density lipoprotein (HDL) cholesterol measurementOrdered By: Nimesh Cerda on 10-29-2022 Cholesterol in HDL [Mass/Vol] 64 mg/dL 35-85 [facility] Comment on above: HDL CHOL ATP-III CLA SSIFICATION Cardiovascular RiskHDL > or equal to 60 mg/dL LOWHDL < 40 mg/dL HIGH Serum or plasma total choles terol/high density lipoprotein (HDL) cholesterol mass ratOrdered By: Nimesh Cerda on 10-29-2022 Cholesterol.total/Chol esterol in HDL [Mass ratio] 2.8 {ratio} <5.0 [facility] Thyrotropin [Units/volume] i n Serum or PlasmaOrdered By: Nimesh Cerda on 10-29-2022 TSH Qn 0.60 m[IU]/L 0.45-5.33 [facility] Triglyceride [Mass/volume] i n Serum or PlasmaOrdered By: Nimesh Cerda on 10-29-2022 Triglyceride [Mass/Vol] 92 mg/dL 0-149 [facility] Comment on above: TRIG ATP III CLASSIF ICATIONTRIG less than 150 mg/dL NormalTRIG 150-199 mg/dL Borderline highTRIG 200-500 mg/dL High TRIG greater than 500 mg/dL Very highStandard traceable to the Center for Disease Conrtrol and Prevention (CDC) test method. Vitamin D+Metabolites [Mass/ volume] in Serum or PlasmaOrdered By: Nimesh Cerda on 10-29-2022 Vitamin D+Metabolites [Mass/Vol] 26.3 ng/mL 30-100 [facility] Comment on above: VITAMIN D STATUS [...] 10-28-2022 ALT [Catalytic activity/Vol] 11 U/L 7-52 [facility] Albumin [Mass/volume] in Ser um or Plasma by Bromocresol green (BCG) dye binding methoOrdered By: Keven Florentino on 10-28-2022 Albumin BCG dye [Mass/Vol] 3.7 g/dL 3.5-5.7 [facility] Alkaline phosphatase [Enzyma tic activity/volume] in Serum or PlasmaOrdered By: Keven Florentino on 10-28-2022 ALP [Catalytic activity/Vol] 74 U/L 34-104 [facility] Amphetamine Screen Ql (U)Ord ered By: Keven Florentino on 10-28-2022 Amphetamines Ql (U) Negative Negative [facility] Aspartate aminotransferase [ Enzymatic activity/volume] in Serum or PlasmaOrdered By: Keven Florentino on 10-28-2022 AST [Catalytic activity/Vol] 15 U/L 13-39 [facility] Automated erythrocytes count in urine sediment (number/area)Ordered By: Keven Florentino on 10-28-2022 RBC Auto (Urine sed) [#/Area] 1-2 [HPF] 0-4 [facility] Automated leukocytes count i n urine sediment (number/area)Ordered By: Keven Florentino on 10-28-2022 WBC Auto (Urine sed) [#/Area] 10-19 [HPF] 0-4 [facility] Barbiturates [Presence] in U rine by Screen methodOrdered By: Keven Florentino on 10-28-2022 Barbiturates Screen Ql (U) Negative Negative [facility] Basophils Auto (Bld) [#/Vol] Ordered By: Keven Florentino on 10-28-2022 Basophils (Bld) [#/Vol] 0.0 10*3/uL 0.0-0.2 [facility] Basophils/100 WBC Auto (Bld) Ordered By: Keven Florentino on 10-28-2022 Basophils/100 WBC (Bld) 0.7 % . [facility] Benzodiazepines Screen Ql (U )Ordered By: Keven Florentino on 10-28-2022 Benzodiazepines Ql (U) Negative Negative [facility] Benzoylecgonine [Presence] i n Urine by Screen methodOrdered By: Keven Florentino on 10-28-2022 Benzoylecgonine Screen Ql (U) Negative Negative [facility] Bilirubin Test strip Ql (U)O rdered By: Keven Florentino on 10-28-2022 Bilirubin Ql (U) Negative Negative [facility] Bilirubin.total [Mass/volume ] in Serum or PlasmaOrdered By: Keven Florentino on 10-28-2022 Bilirubin [Mass/Vol] 0.5 mg/dL 0.3-1.0 [facility] Calcium [Mass/volume] in Ser um or PlasmaOrdered By: Keven Florentino on 10-28-2022 Calcium [Mass/Vol] 8.5 mg/dL 8.6-10.3 [facility] Cannabinoids [Presence] in U rine by Screen methodOrdered By: Keven Florentino on 10-28-2022 Cannabinoids Screen Ql (U) Negative Negative [facility] Comment on above: These are unconfirme d results and should not be used for legal purposes. Drug Cut-Off Concentration: AMPH 1000 ng/mL BOO 200 ng/mL HELGA 200 ng/mL COCM 300 ng/mL OP 300 ng/mL PCP 25 ng/mL THC 20 ng/mL Carbon dioxide, total [Moles /volume] in Serum or PlasmaOrdered By: Keven Florentino on 10-28-2022 CO2 [Moles/Vol] 24.6 mmol/L 21.0-31.0 [facility] Chloride [Moles/volume] in S mac or PlasmaOrdered By: Kveen Florentino on 10-28-2022 Chloride [Moles/Vol] 109 mmol/L 98-107 [facility] Color Auto (U)Ordered By: Anibal red Mishel on 10-28-2022 Color (U) Dark yellow Yellow [facility] Creatinine [Mass/volume] in Serum or PlasmaOrdered By: Keven Florentino on 10-28-2022 Creatinine [Mass/Vol] 0.70 mg/dL 0.60-1.20 [facility] Eosinophils Auto (Bld) [#/Vo l]Ordered By: Keven Florentino on 10-28-2022 Eosinophils (Bld) [#/Vol] 0.2 10*3/uL 0.0-0.45 [facility] Eosinophils/100 WBC Auto (Bl d)Ordered By: Keven Florentino on 10-28-2022 Eosinophils/100 WBC (Bld) 3.9 % . [facility] Erythrocyte distribution wid th Auto (RBC) [Ratio]Ordered By: Keven Florentino on 10-28-2022 Erythrocyte distribution width (RBC) [Ratio] 13.0 % 11.9-15.3 [facility] Ethanol [Mass/volume] in Ser um or PlasmaOrdered By: Keven Florentino on 10-28-2022 Ethanol [Mass/Vol] mg/dL [facility] Ethanol [Mass/Vol] TNP [facility] Comment on above: Test not performed Globulin Calc (S) [Mass/Vol] Ordered By: Keven Florentino on 10-28-2022 Globulin (S) [Mass/Vol] 2.4 g/dL [facility] Glucose [Mass/volume] in Ser um or PlasmaOrdered By: Keven Florentino on 10-28-2022 Glucose [Mass/Vol] 91 mg/dL 70-100 [facility] Comment on above: ADA recommended refe rence rangeRandom Glucose Reference Range is dependent on time and content of last meal. Glucose of more than 200 mg/dL in a nonstressed, ambulatory subject supports the diagnosis of Diabetes Mellitus. HCG ( test) IA.rapi d Ql (U)Ordered By: Keven Florentino on 10-28-2022 HCG ( test) Ql (U) Negative [facility] Hematocrit Auto (Bld) [Volum e fraction]Ordered By: Keven Florentino on 10-28-2022 Hematocrit (Bld) [Volume fraction] 36.0 % 34.0-46.4 [facility] Hemoglobin [Mass/volume] in BloodOrdered By: Keven Florentino on 10-28-2022 Hemoglobin (Bld) [Mass/Vol] 12.1 g/dL 11.8-15.4 [facility] Ketones Auto test strip (U) [Mass/Vol]Ordered By: Keven Florentino on 10-28-2022 Ketones (U) [Mass/Vol] Trace Negative [facility] - UrinalysisOrder ed By: Keven Florentino on 10-28-2022 Hyaline casts LM Ql (Urine sed) 0-8 [LPF] 0-8 [facility] Leukocytes [#/volume] correc nneka for nucleated erythrocytes in Blood by Automated counOrdered By: Keven Florentino on 10-28-2022 WBC corrected for nucl RBC Auto (Bld) [#/Vol] 6.1 10*3/uL 3.8-11.6 [facility] Lymphocytes Auto (Bld) [#/Vo l]Ordered By: Keven Florentino on 10-28-2022 Lymphocytes (Bld) [#/Vol] 1.2 10*3/uL 1.00-4.8 [facility] Lymphocytes/100 WBC Auto (Bl d)Ordered By: Keven Florentino on 10-28-2022 Lymphocytes/100 WBC (Bld) 19.9 % . [facility] MCH Auto (RBC) [Entitic mass ]Ordered By: Keven Florentino on 10-28-2022 MCH (RBC) [Entitic mass] 32.4 pg 24.7-34.3 [facility] MCHC Auto (RBC) [Mass/Vol]Or dered By: Keven Florentino on 10-28-2022 MCHC (RBC) [Mass/Vol] 33.7 g/dL 32.0-35.0 [facility] MCV Auto (RBC) [Entitic vol] Ordered By: Keven Florentino on 10-28-2022 MCV (RBC) [Entitic vol] 96.1 fL 80-100 [facility] Monocyte distribution width [Entitic volume] in Blood by AutomatedOrdered By: Keven Florentino on 10-28-2022 Monocyte distribution width Auto (Bld) [Entitic vol] 17.88 % 0.00-20.00 [facility] Monocytes Auto (Bld) [#/Vol] Ordered By: Keven Florentino on 10-28-2022 Monocytes (Bld) [#/Vol] 0.4 10*3/uL 0.0-0.8 [facility] Monocytes/100 WBC Auto (Bld) Ordered By: Keven Florentino on 10-28-2022 Monocytes/100 WBC (Bld) 6.5 % . [facility] Neutrophils Auto (Bld) [#/Vo l]Ordered By: Keven Florentino on 10-28-2022 Neutrophils (Bld) [#/Vol] 4.2 10*3/uL 1.8-7.7 [facility] Neutrophils/100 WBC Auto (Bl d)Ordered By: Keven Florentino on 10-28-2022 Neutrophils/100 WBC (Bld) 69.0 % . [facility] Nitrite Test strip Ql (U)Ord ered By: Keven Florentino on 10-28-2022 Nitrite Ql (U) Negative Negative [facility] No Panel InformationOrdered By: Keven Florentino on 10-28-2022 Estimated GFR (CKD-EPI) > 60.0 mL/Min [facility] Creatinine Clearance (Chem 136.41 [facility] Nucleated erythrocytes [Pres ence] in Blood by Automated countOrdered By: Keven Florentino on 10-28-2022 Nucleated RBC Auto Ql (Bld) 0.2 /100{WBC} 0-0.5 [facility] Opiates [Presence] in Urine by Screen methodOrdered By: Keven Florentino on 10-28-2022 Opiates Screen Ql (U) Negative Negative [facility] Phencyclidine Screen Ql (U)O rdered By: Keven Florentino on 10-28-2022 Phencyclidine Ql (U) Negative Negative [facility] Platelet mean volume Auto (B ld) [Entitic vol]Ordered By: Keven Florentino on 10-28-2022 Platelet mean volume (Bld) [Entitic vol] 7.5 fL 6.3-10.7 [facility] Platelets Auto (Bld) [#/Vol] Ordered By: Keven Florentino on 10-28-2022 Platelets (Bld) [#/Vol] 177 10*3/uL 150-450 [facility] Potassium [Moles/volume] in Serum or PlasmaOrdered By: Keven Florentino on 10-28-2022 Potassium [Moles/Vol] 3.8 mmol/L 3.5-5.1 [facility] Protein Auto test strip (U) [Mass/Vol]Ordered By: Keven Florentino on 10-28-2022 Protein (U) [Mass/Vol] Negative Negative [facility] Protein [Mass/volume] in Ser um or PlasmaOrdered By: Keven Florentino on 10-28-2022 Protein [Mass/Vol] 6.1 g/dL 6.4-8.9 [facility] RBC Auto (Bld) [#/Vol]Ordere d By: Keven Florentino on 10-28-2022 RBC (Bld) [#/Vol] 3.74 10*6/uL 3.60-5.00 [facility] Serum or plasma albumin/glob ulin mass ratioOrdered By: Keven Florentino on 10-28-2022 Albumin/Globulin [Mass ratio] 1.5 {ratio} [facility] Serum or plasma anion gap de terminationOrdered By: Keven Florentino on 10-28-2022 Anion gap [Moles/Vol] 11.2 mmol/L 6.0-15.0 [facility] Sodium [Moles/volume] in Ser um or PlasmaOrdered By: Keven Florentino on 10-28-2022 Sodium [Moles/Vol] 141 mmol/L 136-145 [facility] Specific gravity Auto test s trip (U) [Rel density]Ordered By: Keven Florentino on 10-28-2022 Specific gravity (U) [Rel density] 1.024 1.001-1.030 [facility] Squamous epithelial cells de tection in urine sediment by light microscopyOrdered By: Keven Florentino on 10-28-2022 Epithelial cells.squamous LM Ql (Urine sed) 5-9 [HPF] 0-2 [facility] Urea nitrogen [Mass/volume] in Serum or PlasmaOrdered By: Keven Florentino on 10-28-2022 Urea nitrogen [Mass/Vol] 15 mg/dL 7-25 [facility] Urine bacteria detection by automated methodOrdered By: Keven Florentino on 10-28-2022 Bacteria Auto Ql (U) None seen None Seen [facility] Urine clarity by refractomet ry automatedOrdered By: Keven Florentino on 10-28-2022 Clarity Refractometry automated (U) Clear Clear [facility] Urine culture routineOrdered By: Keven Florentino on 10-28-2022 Bacteria identified Cx Nom (U) 2 Days [facility] Urine glucose measurement by automated test strip (mass/volume)Ordered By: Keven Florentino on 10-28-2022 Glucose Auto test strip (U) [Mass/Vol] Normal mg/dL Normal [facility] Urine hemoglobin detection b y automated test stripOrdered By: Keven Florentino on 10-28-2022 Hemoglobin Auto test strip Ql (U) Negative Negative [facility] Urine leukocyte esterase det ection by automated test stripOrdered By: Keven Florentino on 10-28-2022 Leukocyte esterase Auto test strip Ql (U) 3+ Negative [facility] Urobilinogen Auto test strip (U) [Mass/Vol]Ordered By: Keven Florentino on 10-28-2022 Urobilinogen (U) [Mass/Vol] mg/dL Normal [facility] WBC Auto (Bld) [#/Vol]Ordere d By: Keven Florentino on 10-28-2022 WBC (Bld) [#/Vol] 6.1 10*3/uL 3.8-11.6 [facility] pH Auto test strip (U)Ordere d By: Keven Florentino on 10-28-2022 pH (U) 6.0 [pH] 5.0-9.0 [facility] Alanine aminotransferase [En zymatic activity/volume] in Serum or PlasmaOrdered By: Chelsie Cortez on 10-18-2022 ALT [Catalytic activity/Vol] 20 U/L 7-52 [facility] Albumin [Mass/volume] in Ser um or Plasma by Bromocresol green (BCG) dye binding methoOrdered By: Chelsie Cortez on 10-18-2022 Albumin BCG dye [Mass/Vol] 3.9 g/dL 3.5-5.7 [facility] Alkaline phosphatase [Enzyma tic activity/volume] in Serum or PlasmaOrdered By: Chelsie Cortez on 10-18-2022 ALP [Catalytic activity/Vol] 99 U/L 34-104 [facility] Aspartate aminotransferase [ Enzymatic activity/volume] in Serum or PlasmaOrdered By: Chelsie Cortez on 10-18-2022 AST [Catalytic activity/Vol] 20 U/L 13-39 [facility] Automated erythrocytes count in urine sediment (number/area)Ordered By: Chelsie Cortez on 10-18-2022 RBC Auto (Urine sed) [#/Area] 0-1 [HPF] 0-4 [facility] Automated leukocytes count i n urine sediment (number/area)Ordered By: Chelsie Cortez on 10-18-2022 WBC Auto (Urine sed) [#/Area] 20-49 [HPF] 0-4 [facility] Basophils Auto (Bld) [#/Vol] Ordered By: Chelsie Cortez on 10-18-2022 Basophils (Bld) [#/Vol] 0.0 10*3/uL 0.0-0.2 [facility] Basophils/100 WBC Auto (Bld) Ordered By: Chelsiemariah Cortez on 10-18-2022 Basophils/100 WBC (Bld) 0.8 % . [facility] Bilirubin Test strip Ql (U)O rdered By: Chelsie Cortez on 10-18-2022 Bilirubin Ql (U) Negative Negative [facility] Bilirubin.direct [Mass/volum e] in Serum or PlasmaOrdered By: Chelsie Cortez on 10-18-2022 Bilirubin.direct [Mass/Vol] 0.10 mg/dL 0.03-0.18 [facility] Bilirubin.total [Mass/volume ] in Serum or PlasmaOrdered By: Chelsie Cortez on 10-18-2022 Bilirubin [Mass/Vol] 0.6 mg/dL 0.3-1.0 [facility] Calcium [Mass/volume] in Ser um or PlasmaOrdered By: Chelsie Cortez on 10-18-2022 Calcium [Mass/Vol] 8.8 mg/dL 8.6-10.3 [facility] Carbon dioxide, total [Moles /volume] in Serum or PlasmaOrdered By: Chelsie Cortez on 10-18-2022 CO2 [Moles/Vol] 26.5 mmol/L 21.0-31.0 [facility] Chloride [Moles/volume] in S mac or PlasmaOrdered By: Chelsie Cortez on 10-18-2022 Chloride [Moles/Vol] 107 mmol/L 98-107 [facility] Color Auto (U)Ordered By: Jose Cortez on 10-18-2022 Color (U) Yellow Yellow [facility] Creatinine [Mass/volume] in Serum or PlasmaOrdered By: Chelsie Cortez on 10-18-2022 Creatinine [Mass/Vol] 0.83 mg/dL 0.60-1.20 [facility] Eosinophils Auto (Bld) [#/Vo l]Ordered By: Chelsie Cortez on 10-18-2022 Eosinophils (Bld) [#/Vol] 0.1 10*3/uL 0.0-0.45 [facility] Eosinophils/100 WBC Auto (Bl d)Ordered By: Chelsie Cortez on 10-18-2022 Eosinophils/100 WBC (Bld) 1.2 % . [facility] Erythrocyte distribution wid th Auto (RBC) [Ratio]Ordered By: Chelsie Cortez on 10-18-2022 Erythrocyte distribution width (RBC) [Ratio] 13.1 % 11.9-15.3 [facility] Globulin Calc (S) [Mass/Vol] Ordered By: Chelsie Cortez on 10-18-2022 Globulin (S) [Mass/Vol] 2.8 g/dL [facility] Glucose [Mass/volume] in Ser um or PlasmaOrdered By: Chelsie Cortez on 10-18-2022 Glucose [Mass/Vol] 101 mg/dL 70-100 [facility] Comment on above: ADA recommended refe rence rangeRandom Glucose Reference Range is dependent on time and content of last meal. Glucose of more than 200 mg/dL in a nonstressed, ambulatory subject supports the diagnosis of Diabetes Mellitus. HCG ( test) IA.rapi d Ql (U)Ordered By: Chelsie Cortez on 10-18-2022 HCG ( test) Ql (U) Negative [facility] Hematocrit Auto (Bld) [Volum e fraction]Ordered By: Chelsie Cortez on 10-18-2022 Hematocrit (Bld) [Volume fraction] 35.1 % 34.0-46.4 [facility] Hemoglobin [Mass/volume] in BloodOrdered By: Chelsie Cortez on 10-18-2022 Hemoglobin (Bld) [Mass/Vol] 12.0 g/dL 11.8-15.4 [facility] Ketones Auto test strip (U) [Mass/Vol]Ordered By: Chelsie Cortez on 10-18-2022 Ketones (U) [Mass/Vol] Negative Negative [facility] - UrinalysisOrder ed By: Chelsie Cortez on 10-18-2022 Hyaline casts LM Ql (Urine sed) 0-8 [LPF] 0-8 [facility] Leukocytes [#/volume] correc nneka for nucleated erythrocytes in Blood by Automated counOrdered By: Chelsie Cortez on 10-18-2022 WBC corrected for nucl RBC Auto (Bld) [#/Vol] 6.3 10*3/uL 3.8-11.6 [facility] Lipase [Enzymatic activity/v olume] in Serum or PlasmaOrdered By: Chelsie Cortez on 10-18-2022 Lipase [Catalytic activity/Vol] 42.0 U/L 11.0-82.0 [facility] Lymphocytes Auto (Bld) [#/Vo l]Ordered By: Chelsie Cortez on 10-18-2022 Lymphocytes (Bld) [#/Vol] 1.4 10*3/uL 1.00-4.8 [facility] Lymphocytes/100 WBC Auto (Bl d)Ordered By: Chelsie Cortez on 10-18-2022 Lymphocytes/100 WBC (Bld) 22.0 % . [facility] MCH Auto (RBC) [Entitic mass ]Ordered By: Chelsie Cortez on 10-18-2022 MCH (RBC) [Entitic mass] 33.0 pg 24.7-34.3 [facility] MCHC Auto (RBC) [Mass/Vol]Or dered By: Chelsie Cortez on 10-18-2022 MCHC (RBC) [Mass/Vol] 34.2 g/dL 32.0-35.0 [facility] MCV Auto (RBC) [Entitic vol] Ordered By: Chelsie Cortez on 10-18-2022 MCV (RBC) [Entitic vol] 96.5 fL 80-100 [facility] Magnesium [Mass/volume] in S mac or PlasmaOrdered By: Chelsie Cortez on 10-18-2022 Magnesium [Mass/Vol] 2.1 mg/dL 1.9-2.7 [facility] Monocytes Auto (Bld) [#/Vol] Ordered By: Chelsie Cortez on 10-18-2022 Monocytes (Bld) [#/Vol] 0.5 10*3/uL 0.0-0.8 [facility] Monocytes/100 WBC Auto (Bld) Ordered By: Chelsie Cortez on 10-18-2022 Monocytes/100 WBC (Bld) 7.2 % . [facility] Neutrophils Auto (Bld) [#/Vo l]Ordered By: Chelsie Cortez on 10-18-2022 Neutrophils (Bld) [#/Vol] 4.3 10*3/uL 1.8-7.7 [facility] Neutrophils/100 WBC Auto (Bl d)Ordered By: Chelsie Cortez on 10-18-2022 Neutrophils/100 WBC (Bld) 68.8 % . [facility] Nitrite Test strip Ql (U)Ord ered By: Chelsie Cortez on 10-18-2022 Nitrite Ql (U) Negative Negative [facility] No Panel InformationOrdered By: Chelsie Cortez on 10-18-2022 Estimated GFR (CKD-EPI) > 60.0 mL/Min [facility] Creatinine Clearance (Chem 115.47 [facility] Nucleated erythrocytes [Pres ence] in Blood by Automated countOrdered By: Chelsie Cortez on 10-18-2022 Nucleated RBC Auto Ql (Bld) 0.1 /100{WBC} 0-0.5 [facility] Platelet mean volume Auto (B ld) [Entitic vol]Ordered By: Chelsie Cortez on 10-18-2022 Platelet mean volume (Bld) [Entitic vol] 7.6 fL 6.3-10.7 [facility] Platelets Auto (Bld) [#/Vol] Ordered By: Chelsie Cortez on 10-18-2022 Platelets (Bld) [#/Vol] 170 10*3/uL 150-450 [facility] Potassium [Moles/volume] in Serum or PlasmaOrdered By: Chelsie Cortez on 10-18-2022 Potassium [Moles/Vol] 4.2 mmol/L 3.5-5.1 [facility] Protein Auto test strip (U) [Mass/Vol]Ordered By: Chelsie Cortez on 10-18-2022 Protein (U) [Mass/Vol] Negative Negative [facility] Protein [Mass/volume] in Ser um or PlasmaOrdered By: Chelsie Cortez on 10-18-2022 Protein [Mass/Vol] 6.7 g/dL 6.4-8.9 [facility] RBC Auto (Bld) [#/Vol]Ordere d By: Chelsie Cortez on 10-18-2022 RBC (Bld) [#/Vol] 3.64 10*6/uL 3.60-5.00 [facility] Serum or plasma albumin/glob ulin mass ratioOrdered By: Chelsie Cortez on 10-18-2022 Albumin/Globulin [Mass ratio] 1.4 {ratio} [facility] Serum or plasma anion gap de terminationOrdered By: Chelsie Cortez on 10-18-2022 Anion gap [Moles/Vol] 9.7 mmol/L 6.0-15.0 [facility] Serum or plasma non-glucuron idated bilirubin measurement (mass/volume)Ordered By: Chelsie Cortez on 10-18-2022 Bilirubin.indirect [Mass/Vol] 0.5 mg/dL [facility] Sodium [Moles/volume] in Ser um or PlasmaOrdered By: Chelsie Cortez on 10-18-2022 Sodium [Moles/Vol] 139 mmol/L 136-145 [facility] Specific gravity Auto test s trip (U) [Rel density]Ordered By: Chelsie Cortez on 10-18-2022 Specific gravity (U) [Rel density] 1.011 1.001-1.030 [facility] Squamous epithelial cells de tection in urine sediment by light microscopyOrdered By: Chelsie Cortez on 10-18-2022 Epithelial cells.squamous LM Ql (Urine sed) 3-4 [HPF] 0-2 [facility] Urea nitrogen [Mass/volume] in Serum or PlasmaOrdered By: Chelsie Cortez on 10-18-2022 Urea nitrogen [Mass/Vol] 9 mg/dL 7-25 [facility] Urine bacteria detection by automated methodOrdered By: Chelsie Cortez on 10-18-2022 Bacteria Auto Ql (U) None seen None Seen [facility] Urine clarity by refractomet ry automatedOrdered By: Chelsie Cortez on 10-18-2022 Clarity Refractometry automated (U) Clear Clear [facility] Urine culture routineOrdered By: Chelsie Cortez on 10-18-2022 Bacteria identified Cx Nom (U) 2 Days [facility] Urine glucose measurement by automated test strip (mass/volume)Ordered By: Chelsie Cortez on 10-18-2022 Glucose Auto test strip (U) [Mass/Vol] Normal mg/dL Normal [facility] Urine hemoglobin detection b y automated test stripOrdered By: Chelsie Cortez on 10-18-2022 Hemoglobin Auto test strip Ql (U) Negative Negative [facility] Urine leukocyte esterase det ection by automated test stripOrdered By: Chelsie Cortez on 10-18-2022 Leukocyte esterase Auto test strip Ql (U) 3+ Negative [facility] Urobilinogen Auto test strip (U) [Mass/Vol]Ordered By: Chelsie Cortez on 10-18-2022 Urobilinogen (U) [Mass/Vol] Normal mg/dL Normal [facility] WBC Auto (Bld) [#/Vol]Ordere d By: Chelsie Cortez on 10-18-2022 WBC (Bld) [#/Vol] 6.3 10*3/uL 3.8-11.6 [facility] pH Auto test strip (U)Ordere d By: Chelsie Cortez on 10-18-2022 pH (U) 5.5 [pH] 5.0-9.0 [facility] AMYLASEon 10-16-2022 Amylase [Catalytic activity/Vol] 42 U/L Normal 25-115 [facility] Comment on above: Performed By: #### C MP, LIPA, GRETTA #### [facility] [address] [place] [address] Dr. Kinjal Rivers CBC AUTO DIFFon 10-16-2022 BASO # 0.0 103/ul Normal 0.0-0.1 [facility] Comment on above: Performed By: #### C BC #### [facility] [address] [place] [address] Dr. Kinjal Rivers Basophils/100 WBC (Bld) 0.6 % Normal 0.2-2.0 [facility] Comment on above: Performed By: #### C BC #### [facility] [address] [place] [address] Dr. Kinjal Rivers EO # 0.1 103/ul Normal 0.0-0.7 [facility] Comment on above: Performed By: #### C BC #### [facility] [address] [place] [address] Dr. Kinjal Rivers Eosinophils/100 WBC (Bld) 2.1 % Normal 0.9-7.0 [facility] Comment on above: Performed By: #### C BC #### [facility] [address] [place] [address] Dr. Kinjal Rivers Erythrocyte distribution width (RBC) [Ratio] 12.4 % Normal 11.0-15.0 [facility] Comment on above: Performed By: #### C BC #### [facility] [address] [place] [address] Dr. Kinjal Rivers Hematocrit (Bld) [Volume fraction] 38.3 % Normal 36.0-48.0 [facility] Comment on above: Performed By: #### C BC #### [facility] [address] [place] [address] Dr. Kinjal Rivers Hemoglobin (Bld) [Mass/Vol] 12.8 g/dL Normal 12.0-16.0 [facility] Comment on above: Performed By: #### C BC #### [facility] [address] [place] [address] Dr. Kinjal Rivers IG # 0.02 10e3/ul Normal 0.00-0.03 [facility] Comment on above: Performed By: #### C BC #### [facility] [address] [place] [address] Dr. Kinjal Rivers IG % 0.3 % Normal 0.0-0.5 [facility] Comment on above: Performed By: #### C BC #### [facility] [address] [place] [address] Dr. Kinjal Rivers LYMPH # 1.5 103/ul Normal 1.2-3.8 [facility] Comment on above: Performed By: #### C BC #### [facility] [address] [place] [address] Dr. Kinjal Rivers Lymphocytes/100 WBC (Bld) 24.1 % Normal 20.5-60.0 [facility] Comment on above: Performed By: #### C BC #### [facility] [address] [place] [address] Dr. Kinjal Rivers MANUAL DIFF REQ NO Normal [facility] Comment on above: Performed By: #### C BC #### [facility] [address] [place] [address] Dr. Kinjal Rivers MCH (RBC) [Entitic mass] 32.7 pg Normal 26.7-34.0 [facility] Comment on above: Performed By: #### C BC #### [facility] [address] [address] [address] Kinjal Rivers MCHC (RBC) [Mass/Vol] 33.4 g/dL Normal 29.9-35.2 [facility] Comment on above: Performed By: #### C BC #### [facility] [address] [address] [address] Kinjal Rivers MCV (RBC) [Entitic vol] 97.7 fL Normal 81.0-99.0 [facility] Comment on above: Performed By: #### C BC #### [facility] [address] [place] [address] Dr. Kinjal Rivers MONO # 0.3 103/ul Normal 0.3-0.8 [facility] Comment on above: Performed By: #### C BC #### [facility] [address] [place] [address] Dr. Kinjal Rivers Monocytes/100 WBC (Bld) 5.5 % Normal 1.7-12.0 [facility] Comment on above: Performed By: #### C BC #### [facility] [address] [place] [address] Dr. Kinjal Rivers NEUT # 4.2 103/ul Normal 1.4-6.5 [facility] Comment on above: Performed By: #### C BC #### [facility] [address] [place] [address] Dr. Kinjal Rivers Neutrophils/100 WBC (Bld) 67.4 % Normal 43.0-75.0 [facility] Comment on above: Performed By: #### C BC #### [facility] [address] [place] [address] Dr. Kinjal Rivers Platelet mean volume (Bld) [Entitic vol] 9.2 fL Critically low 9.5-13.5 [facility] Comment on above: Performed By: #### C BC #### [facility] [address] [place] [address] Dr. Kinjal Rivers PLT 184 103/ul Normal 150-450 [facility] Comment on above: Performed By: #### C BC #### [facility] [address] [place] [address] Dr. Kinjal Rivers RBC 3.92 106/ul Critically low 4.20-5.40 [facility] Comment on above: Performed By: #### C BC #### [facility] [address] [place] [address] Dr. Kinjal Rivers WBC 6.2 103/ul Normal 4.0-11.0 [facility] Comment on above: Performed By: #### C BC #### [facility] [address] [place] [address] Dr. Kinjal Rivers CULTURE URINEon 10-16-2022 CULTURE URINE Culture Observations : LIGHT GROWTH OF MIXED GENITAL YOGESH. NO POTENTIAL PATHOGENS SEEN. Normal [facility] Comment on above: Performed By: #### U RCX #### [facility] [address] [place] [address] Dr. Kinjal Rivers ER URINE PROFILEon Bilirubin Ql (U) Negative Normal NEGATIVE [facility] Comment on above: Performed By: #### U MICRO, ERUR #### [facility] [address] [place] [address] Dr. Kinjal Rivers Clarity (U) SL CLOUDY Abnormal CLEAR [facility] Comment on above: Performed By: #### U MICRO, ERUR #### [facility] [address] [place] [address] Dr. Kinjal Rivers Color (U) LT. YELLOW Normal YELLOW [facility] Comment on above: Performed By: #### U MICRO, ERUR #### [facility] [address] [place] [address] Dr. Kinjal Rivers ERUAHD A micrscopic examina tion will be performed if indicated. Normal [facility] Comment on above: Performed By: #### U MICRO, ERUR #### [facility] [address] [place] [address] Dr. Kinjal Rivers Glucose Ql (U) Negative Normal NEGATIVE [facility] Comment on above: Performed By: #### U MICRO, ERUR #### [facility] [address] [address] [address] Kinjal Rivers Hemoglobin Ql (U) Negative Normal NEGATIVE [facility] Comment on above: Performed By: #### U MICRO, ERUR #### [facility] [address] [address] [address] Kinjal Rivers Ketones Ql (U) Negative Normal NEGATIVE [facility] Comment on above: Performed By: #### U MICRO, ERUR #### [facility] [address] [place] [address] Dr. Kinjal Rivers LEUKOCYTES TRACE Abnormal NEGATIVE [facility] Comment on above: Performed By: #### U MICRO, ERUR #### [facility] [address] [place] [address] Dr. Kinjal Rivers Nitrite Ql (U) Negative Normal NEGATIVE [facility] Comment on above: Performed By: #### U MICRO, ERUR #### [facility] [address] [place] [address] Dr. Kinjal Rivers pH (U) 5.0 [pH] Normal 5-9 [facility] Comment on above: Performed By: #### U MICRO, ERUR #### [facility] [address] [place] [address] Dr. Kinjal Rivers SPEC GRAVITY 1.030 Abnormal 1.005-<=1.0 25 [facility] Comment on above: Performed By: #### U MICRO, ERUR #### [facility] [address] [place] [address] Dr. Kinjal Rivers UA PROTEIN Negative Normal NEGATIVE/ TRACE [facility] Comment on above: Performed By: #### U MICRO, ERUR #### [facility] [address] [place] [address] Dr. Kinjal Rivers UR MICRO IND INDICATED Normal [facility] Comment on above: Performed By: #### U MICRO, ERUR #### [facility] [address] [place] [address] Dr. Kinjal Rivers Urobilinogen Qn (U) 1.0 {José'U}/dL Normal 0.2 - 1. 0 [facility] Comment on above: Performed By: #### U MICRO, ERUR #### [facility] [address] [place] [address] Dr. Kinjal Rivers LIPASEon 10-16-2022 Lipase [Catalytic activity/Vol] 133.0 U/L Normal 73.0-393.0 [facility] Comment on above: Performed By: #### C MP, LIPA, GRETTA #### [facility] [address] [place] [address] Dr. Kinjal Rivers PROF 14(COMP METB)on 023 Albumin [Mass/Vol] 3.7 g/dL Normal 3.4-5.0 [facility] Comment on above: Performed By: #### C MP, LIPA, GRETTA #### [facility] [address] [place] [address] Dr. Kinjal Rivers Albumin/Globulin [Mass ratio] 1.0 {ratio} Normal [facility] Comment on above: Performed By: #### C MP, LIPA, GRETTA #### [facility] [address] [place] [address] Dr. Kinjal Rivers ALP [Catalytic activity/Vol] 101 U/L Normal 46-116 [facility] Comment on above: Performed By: #### C MP, LIPA, GRETTA #### [facility] [address] [place] [address] Dr. Kinjal Rivers ALT [Catalytic activity/Vol] 27 U/L Normal 14-59 [facility] Comment on above: Performed By: #### C MP, LIPA, GRETTA #### [facility] [address] [place] [address] Dr. Kinjal Rivers Anion gap [Moles/Vol] 13.4 mmol/L Normal [facility] Comment on above: Performed By: #### C MP, LIPA, GRETTA #### [facility] [address] [place] [address] Dr. Kinjal Rivers AST [Catalytic activity/Vol] 23 U/L Normal 15-37 [facility] Comment on above: Performed By: #### C MP, LIPA, GRETTA #### [facility] [address] [place] [address] Dr. Kinjal Rivers Bilirubin [Mass/Vol] 0.6 mg/dL Normal 0.2-1.0 [facility] Comment on above: Performed By: #### C YOVANI SCHUMACHER, GRETTA #### [facility] [address] [place] [address] Dr. Kinjal Rivers Calcium [Mass/Vol] 9.1 mg/dL Normal 8.5-10.1 [facility] Comment on above: Performed By: #### C WINSOME LIPA, GRETTA #### [facility] [address] [place] [address] Dr. Kinjal Rivers Chloride [Moles/Vol] 105 mmol/L Normal 98-107 [facility] Comment on above: Performed By: #### C LANDON SCHUMACHERA, GRETTA #### [facility] [address] [place] [address] Dr. Kinjal Rivers CO2 [Moles/Vol] 25.3 mmol/L Normal 21.0-32.0 [facility] Comment on above: Performed By: #### C WINSOME LIPA, GRETTA #### [facility] [address] [place] [address] Dr. Kinjal Rivers Creatinine [Mass/Vol] 0.96 mg/dL Normal 0.55-1.02 [facility] Comment on above: Performed By: #### C LANDON SCHUMACHERA, GRETTA #### [facility] [address] [place] [address] Dr. Kinjal Rivers EGFR-AF ISRAELI >60 Normal >=60 [facility] Comment on above: Performed By: #### C WINSOME LIPA, GRETTA #### [facility] [address] [place] [address] Dr. Kinjal Rivers EGFR-NON AF ISRAELI >60 Normal >=60 [facility] Comment on above: Performed By: #### C WINSOME LIPA, GRETTA #### [facility] [address] [place] [address] Dr. Kinjal Rivers Globulin (S) [Mass/Vol] 3.6 g/dL Normal [facility] Comment on above: Performed By: #### C WINSOME LIPA, GRETTA #### [facility] [address] [address] [address] Kinjal Rivers Glucose [Mass/Vol] 93 mg/dL Normal 74-106 [facility] Comment on above: Performed By: #### C WINSOME LIPA, GRETTA #### [facility] [address] [address] [address] Kinjal Rivers Potassium [Moles/Vol] 3.7 mmol/L Normal 3.5-5.1 [facility] Comment on above: Performed By: #### C WINSOME LIPA, GRETTA #### [facility] [address] [address] [address] Kinjal Rivers Protein [Mass/Vol] 7.3 g/dL Normal 6.4-8.2 [facility] Comment on above: Performed By: #### C WINSOME LIPA, GRETTA #### [facility] [address] [place] [address] Dr. Kinjal Rivers Sodium [Moles/Vol] 140 mmol/L Normal 136-145 [facility] Comment on above: Performed By: #### C WINSOME LIPA, GRETTA #### [facility] [address] [address] [address] Kinjal Rivers Urea nitrogen [Mass/Vol] 9.0 mg/dL Normal 7.0-18.0 [facility] Comment on above: Performed By: #### C WINSOME LIPA, GRETTA #### [facility] [address] [address] [address] Kinjal Rivers Urea nitrogen/Creatinine [Mass ratio] 9.4 mg/mg Normal [facility] Comment on above: Performed By: #### C MP LIPA, GRETTA #### [facility] [address] [address] [address] Kinjal Rivers URINE MICROSCOPIC ONLYon BACTERIA TRACE Abnormal NONE SEEN [facility] Comment on above: Performed By: #### U MICRO, ERUR #### [facility] [address] [address] [address] Kinjal Rivers Bacteria identified Cx Nom (U) INDICATED Normal [facility] Comment on above: Performed By: #### U MICRO, ERUR #### [facility] [address] [address] [address] Kinjal Rivers CAST NONE SEEN Normal NONE SEEN [facility] Comment on above: Performed By: #### U MICRO, ERUR #### [facility] [address] [address] [address] Kinjal Rivers Crystals LM Nom (Urine sed) NONE SEEN Normal NONE SEEN [facility] Comment on above: Performed By: #### U MICRO, ERUR #### [facility] [address] [address] [address] Kinjal Rivers Epithelial cells LM Ql (Urine sed) FEW Abnormal NONE SEEN /RARE [facility] Comment on above: Performed By: #### U MICRO, ERUR #### [facility] [address] [place] [address] Dr. Kinjal Rivers MUCOUS NONE SEEN Normal NONE SEEN [facility] Comment on above: Performed By: #### U MICRO, ERUR #### [facility] [address] [place] [address] Dr. Kinjal Rivers RBC NONE SEEN Abnormal 0-2 [facility] Comment on above: Performed By: #### U MICRO, ERUR #### [facility] [address] [place] [address] Dr. Kinjal Rivers WBC 2-5 Abnormal NONE SEEN [facility] Comment on above: Performed By: #### U MICRO, ERUR #### [facility] [address] [place] [address] Dr. Kinjal Rivers Activated partial thrombopla stin time (aPTT) in platelet poor plasma by coagulation aOrdered By: Michael Cerda on 09-28-2022 aPTT Coag (PPP) [Time] 24.9 s 25.1-36.5 [facility] Automated erythrocytes count in urine sediment (number/area)Ordered By: Michael Cerda on 09-28-2022 RBC Auto (Urine sed) [#/Area] 0-1 [HPF] 0-4 [facility] Automated leukocytes count i n urine sediment (number/area)Ordered By: Michael Cerda on 09-28-2022 WBC Auto (Urine sed) [#/Area] 10-19 [HPF] 0-4 [facility] Basophils Auto (Bld) [#/Vol] Ordered By: Michael Cerda on 09-28-2022 Basophils (Bld) [#/Vol] 0.0 10*3/uL 0.0-0.2 [facility] Basophils/100 WBC Auto (Bld) Ordered By: Michael Cerda on 09-28-2022 Basophils/100 WBC (Bld) 0.5 % . [facility] Bilirubin Test strip Ql (U)O rdered By: Michael Cerda on 09-28-2022 Bilirubin Ql (U) Negative Negative [facility] COVID CepheidOrdered By: Janee Cerda on 09-28-2022 SARS-CoV-2 (COVID-19) Ab IA Ql Negative Negative [facility] Comment on above: This is a duplicate [employer] Xpert Xpress CoV-2/Flu/RSV Plus RNA by RT-PCR result to be used for statistical tracking purpose only. SARS-CoV-2 (COVID-19) RNA CRISTINA+probe Ql (Unsp spec) [facility] Calcium [Mass/volume] in Ser um or PlasmaOrdered By: Michael Cerda on 09-28-2022 Calcium [Mass/Vol] 9.3 mg/dL 8.6-10.3 [facility] Carbon dioxide, total [Moles /volume] in Serum or PlasmaOrdered By: Michael Cerda on 09-28-2022 CO2 [Moles/Vol] 23.7 mmol/L 21.0-31.0 [facility] Chloride [Moles/volume] in S mac or PlasmaOrdered By: Michael Cerda on 09-28-2022 Chloride [Moles/Vol] 105 mmol/L 98-107 [facility] Color Auto (U)Ordered By: Lorene Cerda on 09-28-2022 Color (U) Yellow Yellow [facility] Creatine kinase [Enzymatic a ctivity/volume] in Serum or PlasmaOrdered By: Michael Cerda on 09-28-2022 CK [Catalytic activity/Vol] 60 U/L 30-223 [facility] Creatinine [Mass/volume] in Serum or PlasmaOrdered By: Michael Cerda on 09-28-2022 Creatinine [Mass/Vol] 0.81 mg/dL 0.60-1.20 [facility] Eosinophils Auto (Bld) [#/Vo l]Ordered By: Michael Cerda on 09-28-2022 Eosinophils (Bld) [#/Vol] 0.0 10*3/uL 0.0-0.45 [facility] Eosinophils/100 WBC Auto (Bl d)Ordered By: Michael Cerda on 09-28-2022 Eosinophils/100 WBC (Bld) 0.2 % . [facility] Erythrocyte distribution wid th Auto (RBC) [Ratio]Ordered By: Michael Cerda on 09-28-2022 Erythrocyte distribution width (RBC) [Ratio] 13.5 % 11.9-15.3 [facility] Glucose [Mass/volume] in Ser um or PlasmaOrdered By: Michael Cerda on 09-28-2022 Glucose [Mass/Vol] 103 mg/dL 70-100 [facility] Comment on above: ADA recommended refe rence rangeRandom Glucose Reference Range is dependent on time and content of last meal. Glucose of more than 200 mg/dL in a nonstressed, ambulatory subject supports the diagnosis of Diabetes Mellitus. Hematocrit Auto (Bld) [Volum e fraction]Ordered By: Michael Cerda on 09-28-2022 Hematocrit (Bld) [Volume fraction] 38.9 % 34.0-46.4 [facility] Hemoglobin [Mass/volume] in BloodOrdered By: Michael Cerda on 09-28-2022 Hemoglobin (Bld) [Mass/Vol] 13.2 g/dL 11.8-15.4 [facility] Ketones Auto test strip (U) [Mass/Vol]Ordered By: Michael Cerda on 09-28-2022 Ketones (U) [Mass/Vol] Negative Negative [facility] - CoagulationOrde red By: Michael Cerda on 09-28-2022 PT Coag (PPP) [Time] 12.0 s 9.0-12.9 [facility] - UrinalysisOrder ed By: Michael Cerda on 09-28-2022 Hyaline casts LM Ql (Urine sed) 0-8 [LPF] 0-8 [facility] Leukocytes [#/volume] correc nneka for nucleated erythrocytes in Blood by Automated counOrdered By: Michael Cerda on 09-28-2022 WBC corrected for nucl RBC Auto (Bld) [#/Vol] 5.1 10*3/uL 3.8-11.6 [facility] Lymphocytes Auto (Bld) [#/Vo l]Ordered By: Michael Cerda on 09-28-2022 Lymphocytes (Bld) [#/Vol] 0.6 10*3/uL 1.00-4.8 [facility] Lymphocytes/100 WBC Auto (Bl d)Ordered By: Michael Cerda on 09-28-2022 Lymphocytes/100 WBC (Bld) 11.0 % . [facility] MCH Auto (RBC) [Entitic mass ]Ordered By: Michael Cerda on 09-28-2022 MCH (RBC) [Entitic mass] 33.0 pg 24.7-34.3 [facility] MCHC Auto (RBC) [Mass/Vol]Or dered By: Michael Cerda on 09-28-2022 MCHC (RBC) [Mass/Vol] 34.0 g/dL 32.0-35.0 [facility] MCV Auto (RBC) [Entitic vol] Ordered By: Michael Cerda on 09-28-2022 MCV (RBC) [Entitic vol] 97.0 fL 80-100 [facility] Monocyte distribution width [Entitic volume] in Blood by AutomatedOrdered By: Michael Cerda on 09-28-2022 Monocyte distribution width Auto (Bld) [Entitic vol] 24.75 % 0.00-20.00 [facility] Comment on above: For adults in ED, MD W > 20.0 may be associated with a higher risk of sepsis during the first 12 hrs of hospital admission Monocytes Auto (Bld) [#/Vol] Ordered By: Michael Cerda on 09-28-2022 Monocytes (Bld) [#/Vol] 0.3 10*3/uL 0.0-0.8 [facility] Monocytes/100 WBC Auto (Bld) Ordered By: Michael Cerda on 09-28-2022 Monocytes/100 WBC (Bld) 5.8 % . [facility] Natriuretic peptide B [Mass/ Vol]Ordered By: Michael Cerda on 09-28-2022 Natriuretic peptide B (Bld) [Mass/Vol] 27.0 pg/mL 5-100 [facility] Neutrophils Auto (Bld) [#/Vo l]Ordered By: Michael Cerda on 09-28-2022 Neutrophils (Bld) [#/Vol] 4.2 10*3/uL 1.8-7.7 [facility] Neutrophils/100 WBC Auto (Bl d)Ordered By: Michael Cerda on 09-28-2022 Neutrophils/100 WBC (Bld) 82.5 % . [facility] Nitrite Test strip Ql (U)Ord ered By: Michael Cerda on 09-28-2022 Nitrite Ql (U) Negative Negative [facility] No Panel InformationOrdered By: Michael Cerda on 09-28-2022 D-Dimer Quantitative (PE/DVT) 560 ng/mL 0-243 [facility] Comment on above: The reference range [...] conditions. Estimated GFR (CKD-EPI) > 60.0 mL/Min [facility] Creatinine Clearance (Chem 119.50 [facility] Nucleated erythrocytes [Pres ence] in Blood by Automated countOrdered By: Michael Cerda on 09-28-2022 Nucleated RBC Auto Ql (Bld) 0.1 /100{WBC} 0-0.5 [facility] Platelet mean volume Auto (B ld) [Entitic vol]Ordered By: Michael Cerda on 09-28-2022 Platelet mean volume (Bld) [Entitic vol] 7.4 fL 6.3-10.7 [facility] Platelet poor plasma interna tional normalized ratio (INR) by coagulation assay (relatOrdered By: Michael Cerda on 09-28-2022 INR Coag (PPP) [Relative time] 1.0 {INR} [facility] Comment on above: INR Therapeutic Rang [...] 09-28-2022 Platelets (Bld) [#/Vol] 197 10*3/uL 150-450 [facility] Potassium [Moles/volume] in Serum or PlasmaOrdered By: Michael Cerda on 09-28-2022 Potassium [Moles/Vol] 3.7 mmol/L 3.5-5.1 [facility] Protein Auto test strip (U) [Mass/Vol]Ordered By: Michael Cerda on 09-28-2022 Protein (U) [Mass/Vol] Negative Negative [facility] RBC Auto (Bld) [#/Vol]Ordere d By: Michael Cerda on 09-28-2022 RBC (Bld) [#/Vol] 4.01 10*6/uL 3.60-5.00 [facility] Serum or plasma anion gap de terminationOrdered By: Michael Cerda on 09-28-2022 Anion gap [Moles/Vol] 13.0 mmol/L 6.0-15.0 [facility] Sodium [Moles/volume] in Ser um or PlasmaOrdered By: Michael Cerda on 09-28-2022 Sodium [Moles/Vol] 138 mmol/L 136-145 [facility] Specific gravity Auto test s trip (U) [Rel density]Ordered By: Michael Cerda on 09-28-2022 Specific gravity (U) [Rel density] 1.015 1.001-1.030 [facility] Squamous epithelial cells de tection in urine sediment by light microscopyOrdered By: Michael Cerda on 09-28-2022 Epithelial cells.squamous LM Ql (Urine sed) 3-4 [HPF] 0-2 [facility] Troponin I.cardiac [Mass/vol ume] in Serum or Plasma by Detection limit <= 0.01 ng/Ordered By: Michael Cerda on 09-28-2022 Troponin I.cardiac DL <= 0.01 ng/mL [Mass/Vol] 5.1 pg/mL 0.0-15.0 [facility] Urea nitrogen [Mass/volume] in Serum or PlasmaOrdered By: Michael Cerda on 09-28-2022 Urea nitrogen [Mass/Vol] 11 mg/dL 7-25 [facility] Urine bacteria detection by automated methodOrdered By: Michael Cerda on 09-28-2022 Bacteria Auto Ql (U) None seen None Seen [facility] Urine clarity by refractomet ry automatedOrdered By: Michael Cerda on 09-28-2022 Clarity Refractometry automated (U) Clear Clear [facility] Urine culture routineOrdered By: Michael Cerda on 09-28-2022 Bacteria identified Cx Nom (U) 2 Days [facility] Urine glucose measurement by automated test strip (mass/volume)Ordered By: Michael Cerda on 09-28-2022 Glucose Auto test strip (U) [Mass/Vol] Normal mg/dL Normal [facility] Urine hemoglobin detection b y automated test stripOrdered By: Michael Cerda on 09-28-2022 Hemoglobin Auto test strip Ql (U) Negative Negative [facility] Urine leukocyte esterase det ection by automated test stripOrdered By: Michael Cerda on 09-28-2022 Leukocyte esterase Auto test strip Ql (U) 3+ Negative [facility] Urobilinogen Auto test strip (U) [Mass/Vol]Ordered By: Michael Cerda on 09-28-2022 Urobilinogen (U) [Mass/Vol] Normal mg/dL Normal [facility] WBC Auto (Bld) [#/Vol]Ordere d By: Michael Cerda on 09-28-2022 WBC (Bld) [#/Vol] 5.1 10*3/uL 3.8-11.6 [facility] pH Auto test strip (U)Ordere d By: Michael Cerda on 09-28-2022 pH (U) 6.5 [pH] 5.0-9.0 [facility] Cholesterol [Mass/volume] in Serum or PlasmaOrdered By: Nimesh Cerda on 09-04-2022 Cholesterol [Mass/Vol] 213 mg/dL 140-200 [facility] Comment on above: Chol less than 200 m g/dl low riskChol 201-239 mg/dl borderline riskChol 240 mg/dl and greater high risk Cholesterol in LDL Calc [Mas s/Vol]Ordered By: Nimesh Cerda on 09-04-2022 Cholesterol in LDL [Mass/Vol] 126 mg/dL 0-100 [facility] Comment on above: LDL ATP III CLASSIFI CATIONLDL less than 100 mg/dL OptimalLDL 100-129 mg/dL Near or above optimalLDL 130-159 mg/dL Borderline highLDL 160-189 mg/dL HighLDL greater than 189 mg/dL Very high Cholesterol in VLDL Calc [Ma ss/Vol]Ordered By: Nimesh Cerda on 09-04-2022 Cholesterol in VLDL [Mass/Vol] 19 mg/dL [facility] Serum or plasma high density lipoprotein (HDL) cholesterol measurementOrdered By: Nimesh Cerda on 09-04-2022 Cholesterol in HDL [Mass/Vol] 67 mg/dL 35-85 [facility] Comment on above: HDL CHOL ATP-III CLA SSIFICATION Cardiovascular RiskHDL > or equal to 60 mg/dL LOWHDL < 40 mg/dL HIGH Serum or plasma total choles terol/high density lipoprotein (HDL) cholesterol mass ratOrdered By: Nimesh Cerda on 09-04-2022 Cholesterol.total/Chol esterol in HDL [Mass ratio] 3.2 {ratio} <5.0 [facility] Thyrotropin [Units/volume] i n Serum or PlasmaOrdered By: Nimesh Cerda on 09-04-2022 TSH Qn 1.74 m[IU]/L 0.45-5.33 [facility] Triglyceride [Mass/volume] i n Serum or PlasmaOrdered By: Nimesh Cerda on 09-04-2022 Triglyceride [Mass/Vol] 98 mg/dL 0-149 [facility] Comment on above: TRIG ATP III CLASSIF ICATIONTRIG less than 150 mg/dL NormalTRIG 150-199 mg/dL Borderline highTRIG 200-500 mg/dL High TRIG greater than 500 mg/dL Very highStandard traceable to the Center for Disease Conrtrol and Prevention (CDC) test method. Vitamin D+Metabolites [Mass/ volume] in Serum or PlasmaOrdered By: Nimesh Cerda on 09-04-2022 Vitamin D+Metabolites [Mass/Vol] 31.0 ng/mL 30-100 [facility] Comment on above: VITAMIN D STATUS [...] 09-03-2022 ALT [Catalytic activity/Vol] 26 U/L 7-52 [facility] Albumin [Mass/volume] in Ser um or Plasma by Bromocresol green (BCG) dye binding methoOrdered By: Raffaele Ellsworth on 09-03-2022 Albumin BCG dye [Mass/Vol] 4.1 g/dL 3.5-5.7 [facility] Alkaline phosphatase [Enzyma tic activity/volume] in Serum or PlasmaOrdered By: Raffaele Ellsworth on 09-03-2022 ALP [Catalytic activity/Vol] 77 U/L 34-104 [facility] Amphetamine Screen Ql (U)Ord ered By: Raffaele Ellsworth on 09-03-2022 Amphetamines Ql (U) Negative Negative [facility] Aspartate aminotransferase [ Enzymatic activity/volume] in Serum or PlasmaOrdered By: Raffaele Ellsworth on 09-03-2022 AST [Catalytic activity/Vol] 29 U/L 13-39 [facility] Automated erythrocytes count in urine sediment (number/area)Ordered By: Raffaele Ellsworth on 09-03-2022 RBC Auto (Urine sed) [#/Area] 5-9 [HPF] 0-4 [facility] Automated leukocytes count i n urine sediment (number/area)Ordered By: Raffaele Ellsworth on 09-03-2022 WBC Auto (Urine sed) [#/Area] 10-19 [HPF] 0-4 [facility] Barbiturates [Presence] in U rine by Screen methodOrdered By: Raffaele Ellsworth on 09-03-2022 Barbiturates Screen Ql (U) Negative Negative [facility] Basophils Auto (Bld) [#/Vol] Ordered By: Raffaele Ellsworth on 09-03-2022 Basophils (Bld) [#/Vol] 0.0 10*3/uL 0.0-0.2 [facility] Basophils/100 WBC Auto (Bld) Ordered By: Raffaele Ellsworth on 09-03-2022 Basophils/100 WBC (Bld) 0.6 % . [facility] Benzodiazepines Screen Ql (U )Ordered By: Raffaele Ellsworth on 09-03-2022 Benzodiazepines Ql (U) Negative Negative [facility] Benzoylecgonine [Presence] i n Urine by Screen methodOrdered By: Raffaele Ellsworth on 09-03-2022 Benzoylecgonine Screen Ql (U) Negative Negative [facility] Bilirubin Test strip Ql (U)O rdered By: Raffaele Ellsworth on 09-03-2022 Bilirubin Ql (U) Negative Negative [facility] Bilirubin.total [Mass/volume ] in Serum or PlasmaOrdered By: Raffaele Ellsworth on 09-03-2022 Bilirubin [Mass/Vol] 0.4 mg/dL 0.3-1.0 [facility] Calcium [Mass/volume] in Ser um or PlasmaOrdered By: Raffaele Ellsworth on 09-03-2022 Calcium [Mass/Vol] 9.6 mg/dL 8.6-10.3 [facility] Cannabinoids [Presence] in U rine by Screen methodOrdered By: Raffaele Ellsworth on 09-03-2022 Cannabinoids Screen Ql (U) Negative Negative [facility] Comment on above: These are unconfirme d results and should not be used for legal purposes. Drug Cut-Off Concentration: AMPH 1000 ng/mL BOO 200 ng/mL HELGA 200 ng/mL COCM 300 ng/mL OP 300 ng/mL PCP 25 ng/mL THC 20 ng/mL Carbon dioxide, total [Moles /volume] in Serum or PlasmaOrdered By: Raffaele Ellsworth on 09-03-2022 CO2 [Moles/Vol] 23.8 mmol/L 21.0-31.0 [facility] Chloride [Moles/volume] in S mac or PlasmaOrdered By: Raffaele Ellsworth on 09-03-2022 Chloride [Moles/Vol] 107 mmol/L 98-107 [facility] Color Auto (U)Ordered By: Kapil Ellsworth on 09-03-2022 Color (U) Yellow Yellow [facility] Creatinine [Mass/volume] in Serum or PlasmaOrdered By: Raffaele Ellsworth on 09-03-2022 Creatinine [Mass/Vol] 0.76 mg/dL 0.60-1.20 [facility] Eosinophils Auto (Bld) [#/Vo l]Ordered By: Raffaele Ellsworth on 09-03-2022 Eosinophils (Bld) [#/Vol] 0.1 10*3/uL 0.0-0.45 [facility] Eosinophils/100 WBC Auto (Bl d)Ordered By: Raffaele Ellsworth on 09-03-2022 Eosinophils/100 WBC (Bld) 2.0 % . [facility] Erythrocyte distribution wid th Auto (RBC) [Ratio]Ordered By: Raffaele Ellsworth on 09-03-2022 Erythrocyte distribution width (RBC) [Ratio] 14.8 % 11.9-15.3 [facility] Ethanol [Mass/volume] in Ser um or PlasmaOrdered By: Raffaele Ellsworth on 09-03-2022 Ethanol [Mass/Vol] mg/dL [facility] Ethanol [Mass/Vol] TNP [facility] Comment on above: Test not performed Globulin Calc (S) [Mass/Vol] Ordered By: Raffaele Ellsworth on 09-03-2022 Globulin (S) [Mass/Vol] 2.9 g/dL [facility] Glucose [Mass/volume] in Ser um or PlasmaOrdered By: Raffaele Ellsworth on 09-03-2022 Glucose [Mass/Vol] 79 mg/dL 74-109 [facility] Comment on above: ADA recommended refe rence rangeRandom Glucose Reference Range is dependent on time and content of last meal. Glucose of more than 200 mg/dL in a nonstressed, ambulatory subject supports the diagnosis of Diabetes Mellitus. Hematocrit Auto (Bld) [Volum e fraction]Ordered By: Raffaele Ellsworth on 09-03-2022 Hematocrit (Bld) [Volume fraction] 38.3 % 34.0-46.4 [facility] Hemoglobin [Mass/volume] in BloodOrdered By: Raffaele Ellsworth on 09-03-2022 Hemoglobin (Bld) [Mass/Vol] 12.8 g/dL 11.8-15.4 [facility] Ketones Auto test strip (U) [Mass/Vol]Ordered By: Raffaele Ellsworth on 09-03-2022 Ketones (U) [Mass/Vol] Trace Negative [facility] - Chemistry and C hemistry - challengeOrdered By: Raffaele Ellsworth on 09-03-2022 GFR/1.73 sq M.predicted MDRD (S/P/Bld) [Vol rate/Area] mL/min/{1.73_m2} [facility] - UrinalysisOrder ed By: Raffaele Ellsworth on 09-03-2022 Hyaline casts LM Ql (Urine sed) 0-8 [LPF] 0-8 [facility] Leukocytes [#/volume] correc nneka for nucleated erythrocytes in Blood by Automated counOrdered By: Raffaele Ellsworth on 09-03-2022 WBC corrected for nucl RBC Auto (Bld) [#/Vol] 6.5 10*3/uL 3.8-11.6 [facility] Lymphocytes Auto (Bld) [#/Vo l]Ordered By: Raffaele Ellsworth on 09-03-2022 Lymphocytes (Bld) [#/Vol] 1.8 10*3/uL 1.00-4.8 [facility] Lymphocytes/100 WBC Auto (Bl d)Ordered By: Raffaele Ellsworth on 09-03-2022 Lymphocytes/100 WBC (Bld) 28.2 % . [facility] MCH Auto (RBC) [Entitic mass ]Ordered By: Raffaele Ellsworth on 09-03-2022 MCH (RBC) [Entitic mass] 32.7 pg 24.7-34.3 [facility] MCHC Auto (RBC) [Mass/Vol]Or dered By: Raffaele Ellsworth on 09-03-2022 MCHC (RBC) [Mass/Vol] 33.4 g/dL 32.0-35.0 [facility] MCV Auto (RBC) [Entitic vol] Ordered By: Raffaele Ellsworth on 09-03-2022 MCV (RBC) [Entitic vol] 97.9 fL 80-100 [facility] Monocyte distribution width [Entitic volume] in Blood by AutomatedOrdered By: Raffaele Ellsworth on 09-03-2022 Monocyte distribution width Auto (Bld) [Entitic vol] 18.00 % 0.00-20.00 [facility] Monocytes Auto (Bld) [#/Vol] Ordered By: Raffaele Ellsworth on 09-03-2022 Monocytes (Bld) [#/Vol] 0.5 10*3/uL 0.0-0.8 [facility] Monocytes/100 WBC Auto (Bld) Ordered By: Raffaele Ellsworth on 09-03-2022 Monocytes/100 WBC (Bld) 7.1 % . [facility] Neutrophils Auto (Bld) [#/Vo l]Ordered By: Raffaele Ellsworth on 09-03-2022 Neutrophils (Bld) [#/Vol] 4.0 10*3/uL 1.8-7.7 [facility] Neutrophils/100 WBC Auto (Bl d)Ordered By: Raffaele Ellsworth on 09-03-2022 Neutrophils/100 WBC (Bld) 62.1 % . [facility] Nitrite Test strip Ql (U)Ord ered By: Raffaele Ellsworth on 09-03-2022 Nitrite Ql (U) Negative Negative [facility] No Panel InformationOrdered By: Raffaele Ellsworth on 09-03-2022 Pharmacy Creatinine Clearance (Chem 126.74 [facility] Nucleated erythrocytes [Pres ence] in Blood by Automated countOrdered By: Raffaele Ellsworth on 09-03-2022 Nucleated RBC Auto Ql (Bld) 0.0 /100{WBC} 0-0.5 [facility] Opiates [Presence] in Urine by Screen methodOrdered By: Raffaele Ellsworth on 09-03-2022 Opiates Screen Ql (U) Negative Negative [facility] Phencyclidine Screen Ql (U)O rdered By: Raffaele Ellsworth on 09-03-2022 Phencyclidine Ql (U) Negative Negative [facility] Platelet mean volume Auto (B ld) [Entitic vol]Ordered By: Raffaele Ellsworth on 09-03-2022 Platelet mean volume (Bld) [Entitic vol] 7.2 fL 6.3-10.7 [facility] Platelets Auto (Bld) [#/Vol] Ordered By: Raffaele Ellsworth on 09-03-2022 Platelets (Bld) [#/Vol] 241 10*3/uL 150-450 [facility] Potassium [Moles/volume] in Serum or PlasmaOrdered By: Raffaele Ellsworth on 09-03-2022 Potassium [Moles/Vol] 4.0 mmol/L 3.5-5.1 [facility] Protein Auto test strip (U) [Mass/Vol]Ordered By: Raffaele Ellsworth on 09-03-2022 Protein (U) [Mass/Vol] Negative Negative [facility] Protein [Mass/volume] in Ser um or PlasmaOrdered By: Raffaele Ellsworth on 09-03-2022 Protein [Mass/Vol] 7.0 g/dL 6.4-8.9 [facility] RBC Auto (Bld) [#/Vol]Ordere d By: Raffaele Ellsworth on 09-03-2022 RBC (Bld) [#/Vol] 3.91 10*6/uL 3.60-5.00 [facility] Serum or plasma albumin/glob ulin mass ratioOrdered By: Raffaele Ellsworth on 09-03-2022 Albumin/Globulin [Mass ratio] 1.4 {ratio} [facility] Serum or plasma anion gap de terminationOrdered By: Raffaele Ellsworth on 09-03-2022 Anion gap [Moles/Vol] 12.2 mmol/L 6.0-15.0 [facility] Sodium [Moles/volume] in Ser um or PlasmaOrdered By: Raffaele Ellsworth on 09-03-2022 Sodium [Moles/Vol] 139 mmol/L 136-145 [facility] Specific gravity Auto test s trip (U) [Rel density]Ordered By: Raffaele Ellsworth on 09-03-2022 Specific gravity (U) [Rel density] 1.020 1.001-1.030 [facility] Squamous epithelial cells de tection in urine sediment by light microscopyOrdered By: Raffaele Ellsworth on 09-03-2022 Epithelial cells.squamous LM Ql (Urine sed) 5-9 [HPF] 0-2 [facility] Urea nitrogen [Mass/volume] in Serum or PlasmaOrdered By: Raffaele Ellsworth on 09-03-2022 Urea nitrogen [Mass/Vol] 9 mg/dL 7-25 [facility] Urine bacteria detection by automated methodOrdered By: Raffaele Ellsworth on 09-03-2022 Bacteria Auto Ql (U) None seen None Seen [facility] Urine clarity by refractomet ry automatedOrdered By: Raffaele Ellsworth on 09-03-2022 Clarity Refractometry automated (U) Clear Clear [facility] Urine culture routineOrdered By: Raffaele Ellsworth on 09-03-2022 Bacteria identified Cx Nom (U) 2 Days [facility] Urine glucose measurement by automated test strip (mass/volume)Ordered By: Raffaele Ellsworth on 09-03-2022 Glucose Auto test strip (U) [Mass/Vol] Normal mg/dL Normal [facility] Urine hemoglobin detection b y automated test stripOrdered By: Raffaele Ellsworth on 09-03-2022 Hemoglobin Auto test strip Ql (U) Trace Negative [facility] Urine leukocyte esterase det ection by automated test stripOrdered By: Raffaele Ellsworth on 09-03-2022 Leukocyte esterase Auto test strip Ql (U) 2+ Negative [facility] Urobilinogen Auto test strip (U) [Mass/Vol]Ordered By: Raffaele Ellsworth on 09-03-2022 Urobilinogen (U) [Mass/Vol] Normal mg/dL Normal [facility] WBC Auto (Bld) [#/Vol]Ordere d By: Raffaele Ellsworth on 09-03-2022 WBC (Bld) [#/Vol] 6.5 10*3/uL 3.8-11.6 [facility] pH Auto test strip (U)Ordere d By: Raffaele Ellsworth on 09-03-2022 pH (U) 5.0 [pH] 5.0-9.0 [facility] Basophils Auto (Bld) [#/Vol] Ordered By: Urbano Palma on 08-13-2022 Basophils (Bld) [#/Vol] 0.0 10*3/uL 0.0-0.2 [facility] Basophils/100 WBC Auto (Bld) Ordered By: Urbano Palma on 08-13-2022 Basophils/100 WBC (Bld) 0.3 % . [facility] Eosinophils Auto (Bld) [#/Vo l]Ordered By: Urbano Palma on 08-13-2022 Eosinophils (Bld) [#/Vol] 0.0 10*3/uL 0.0-0.45 [facility] Eosinophils/100 WBC Auto (Bl d)Ordered By: Urbano Palma on 08-13-2022 Eosinophils/100 WBC (Bld) 0.4 % . [facility] Erythrocyte distribution wid th Auto (RBC) [Ratio]Ordered By: Urbano Palma on 08-13-2022 Erythrocyte distribution width (RBC) [Ratio] 17.2 % 11.9-15.3 [facility] Hematocrit Auto (Bld) [Volum e fraction]Ordered By: Urbano Palma on 08-13-2022 Hematocrit (Bld) [Volume fraction] 30.3 % 34.0-46.4 [facility] Hemoglobin [Mass/volume] in BloodOrdered By: Urbano Palma on 08-13-2022 Hemoglobin (Bld) [Mass/Vol] 10.2 g/dL 11.8-15.4 [facility] Leukocytes [#/volume] correc nneka for nucleated erythrocytes in Blood by Automated counOrdered By: Urbano Palma on 08-13-2022 WBC corrected for nucl RBC Auto (Bld) [#/Vol] 10.0 10*3/uL 3.8-11.6 [facility] Lymphocytes Auto (Bld) [#/Vo l]Ordered By: Urbano Palma on 08-13-2022 Lymphocytes (Bld) [#/Vol] 1.7 10*3/uL 1.00-4.8 [facility] Lymphocytes/100 WBC Auto (Bl d)Ordered By: Urbano Palma on 08-13-2022 Lymphocytes/100 WBC (Bld) 16.5 % . [facility] MCH Auto (RBC) [Entitic mass ]Ordered By: Urbano Palma on 08-13-2022 MCH (RBC) [Entitic mass] 32.9 pg 24.7-34.3 [facility] MCHC Auto (RBC) [Mass/Vol]Or dered By: Urbano Palma on 08-13-2022 MCHC (RBC) [Mass/Vol] 33.6 g/dL 32.0-35.0 [facility] MCV Auto (RBC) [Entitic vol] Ordered By: Urbano Palma on 08-13-2022 MCV (RBC) [Entitic vol] 97.8 fL 80-100 [facility] Monocytes Auto (Bld) [#/Vol] Ordered By: Urbano Palma on 08-13-2022 Monocytes (Bld) [#/Vol] 0.5 10*3/uL 0.0-0.8 [facility] Monocytes/100 WBC Auto (Bld) Ordered By: Urbano Palma on 08-13-2022 Monocytes/100 WBC (Bld) 5.4 % . [facility] Neutrophils Auto (Bld) [#/Vo l]Ordered By: Urbano Palma on 08-13-2022 Neutrophils (Bld) [#/Vol] 7.7 10*3/uL 1.8-7.7 [facility] Neutrophils/100 WBC Auto (Bl d)Ordered By: Urbano Palma on 08-13-2022 Neutrophils/100 WBC (Bld) 77.4 % . [facility] Nucleated erythrocytes [Pres ence] in Blood by Automated countOrdered By: Urbano Palma on 08-13-2022 Nucleated RBC Auto Ql (Bld) 0.0 /100{WBC} 0-0.5 [facility] Platelet mean volume Auto (B ld) [Entitic vol]Ordered By: Urbano Palma on 08-13-2022 Platelet mean volume (Bld) [Entitic vol] 8.2 fL 6.3-10.7 [facility] Platelets Auto (Bld) [#/Vol] Ordered By: Urbano Palma on 08-13-2022 Platelets (Bld) [#/Vol] 125 10*3/uL 150-450 [facility] RBC Auto (Bld) [#/Vol]Ordere d By: Urbano Palma on 08-13-2022 RBC (Bld) [#/Vol] 3.10 10*6/uL 3.60-5.00 [facility] WBC Auto (Bld) [#/Vol]Ordere d By: Urbano Palma on 08-13-2022 WBC (Bld) [#/Vol] 10.0 10*3/uL 3.8-11.6 [facility] Glucose Glucometer (dC) [M ass/Vol]Ordered By: Urbano Palma on 08-12-2022 Glucose [Mass/Vol] 82 mg/dL [facility] Comment on above: Random Glucose Refer ence Range is dependent on time and content of last meal. Glucose of more than 200 mg/dL in a nonstressed, ambulatory subject supports the diagnosis of Diabetes Mellitus. No Panel InformationOrdered By: Urbano Palma on 08-12-2022 Bedside Glucose Comment Glu2: cleaned meter [facility] Amphetamine Screen Ql (U)Ord ered By: Urbano Palma on 08-11-2022 Amphetamines Ql (U) Negative Negative [facility] Automated erythrocytes count in urine sediment (number/area)Ordered By: Urbano Palma on 08-11-2022 RBC Auto (Urine sed) [#/Area] 0-1 [HPF] 0-4 [facility] Automated leukocytes count i n urine sediment (number/area)Ordered By: Urbano Palma on 08-11-2022 WBC Auto (Urine sed) [#/Area] 50-100 [HPF] 0-4 [facility] Automated urine hyaline cast s count (number/volume)Ordered By: Urbano Palma on 08-11-2022 Hyaline casts Auto (U) [#/Vol] None seen [LPF] 0-1 [facility] Barbiturates [Presence] in U rineOrdered By: Urbano Palma on 08-11-2022 Barbiturates Ql (U) Negative Negative [facility] Benzodiazepines [Presence] i n UrineOrdered By: Urbano Palma on 08-11-2022 Benzodiazepines Ql (U) Negative Negative [facility] Bilirubin Test strip Ql (U)O rdered By: Urbano Palma on 08-11-2022 Bilirubin Ql (U) Negative Negative [facility] Casts typing in urine sedime nt by light microscopyOrdered By: Urbano Palma on 08-11-2022 Casts LM Nom (Urine sed) None seen [LPF] None Seen [facility] Color Auto (U)Ordered By: Mago Palma on 08-11-2022 Color (U) Yellow Yellow [facility] Glucose [Mass/volume] in Ser um or PlasmaOrdered By: Urbano Palma on 08-11-2022 Glucose [Mass/Vol] 69 mg/dL 70-100 [facility] Comment on above: ADA recommended refe rence rangeRandom Glucose Reference Range is dependent on time and content of last meal. Glucose of more than 200 mg/dL in a nonstressed, ambulatory subject supports the diagnosis of Diabetes Mellitus. Ketones Auto test strip (U) [Mass/Vol]Ordered By: Urbano Palma on 08-11-2022 Ketones (U) [Mass/Vol] Trace Negative [facility] Laboratory - Drug toxicology Ordered By: Urbano Palma on 08-11-2022 Opiates Ql (U) Negative Negative [facility] Nitrite Test strip Ql (U)Ord ered By: Urbano Palma on 08-11-2022 Nitrite Ql (U) Negative Negative [facility] Phencyclidine Screen Ql (U)O rdered By: Urbano Palma on 08-11-2022 Phencyclidine Ql (U) Negative Negative [facility] Comment on above: These are unconfirme d results and should not be used for legal purposes. Drug Cut-Off Concentration: AMPH 1000 ng/mL BOO 200 ng/mL HELGA 200 ng/mL COCM 300 ng/mL OP 300 ng/mL PCP 25 ng/mL Protein Auto test strip (U) [Mass/Vol]Ordered By: Urbano Palma on 08-11-2022 Protein (U) [Mass/Vol] 30 mg/dL Negative [facility] Reagin Ab [Presence] in Seru m by RPROrdered By: Urbano Palma on 08-11-2022 Reagin Ab RPR Ql (S) Non-Reactive Non Reactive [facility] Comment on above: Performed at: [address] [id number] Director: Prabhakar Warren PhD, Phone: [phone] Specific gravity Auto test s trip (U) [Rel density]Ordered By: Urbano Palma on 08-11-2022 Specific gravity (U) [Rel density] 1.021 1.001-1.030 [facility] Squamous epithelial cells de tection in urine sediment by light microscopyOrdered By: Urbano Palma on 08-11-2022 Epithelial cells.squamous LM Ql (Urine sed) 5-9 [HPF] 0-2 [facility] Urine bacteria detection by automated methodOrdered By: Urbano Palma on 08-11-2022 Bacteria Auto Ql (U) 1+ None Seen [facility] Urine clarity by refractomet ry automatedOrdered By: Urbano Palma on 08-11-2022 Clarity Refractometry automated (U) Cloudy Clear [facility] Urine cocaine detectionOrder ed By: Urbano Palma on 08-11-2022 Cocaine Ql (U) Negative Negative [facility] Urine culture routineOrdered By: Urbano Palma on 08-11-2022 Bacteria identified Cx Nom (U) Cinthya albicans [facility] Urine glucose measurement by automated test strip (mass/volume)Ordered By: Urbano Palma on 08-11-2022 Glucose Auto test strip (U) [Mass/Vol] Normal mg/dL Normal [facility] Urine hemoglobin detection b y automated test stripOrdered By: Urbano Palma on 08-11-2022 Hemoglobin Auto test strip Ql (U) Negative Negative [facility] Urine leukocyte esterase det ection by automated test stripOrdered By: Urbano Palma on 08-11-2022 Leukocyte esterase Auto test strip Ql (U) 3+ Negative [facility] Urobilinogen Auto test strip (U) [Mass/Vol]Ordered By: Urbano Palma on 08-11-2022 Urobilinogen (U) [Mass/Vol] Normal mg/dL Normal [facility] pH Auto test strip (U)Ordere d By: Urbano Palma on 08-11-2022 pH (U) 5.5 [pH] 5.0-9.0 [facility] Albumin [Mass/volume] in Ser um or PlasmaOrdered By: CANDICE Cody on 08-02-2022 Albumin [Mass/Vol] 2.7 g/dL 3.2-5.5 [facility] Basophils Auto (Bld) [#/Vol] Ordered By: CANDICE Cody on 08-02-2022 Basophils (Bld) [#/Vol] 0.0 10*3/uL 0.0-0.2 [facility] Basophils/100 WBC Auto (Bld) Ordered By: CANDICE Cody on 08-02-2022 Basophils/100 WBC (Bld) 0.3 % . [facility] Creatinine and Glomerular fi ltration rate.predicted panel (S/P/Bld)Ordered By: CANDICE Cody on 08-02-2022 Creatinine [Mass/Vol] 0.64 mg/dL 0.44-1.03 [facility] Eosinophils Auto (Bld) [#/Vo l]Ordered By: CANDICE Cody on 08-02-2022 Eosinophils (Bld) [#/Vol] 0.1 10*3/uL 0.0-0.45 [facility] Eosinophils/100 WBC Auto (Bl d)Ordered By: CANDICE Cody on 08-02-2022 Eosinophils/100 WBC (Bld) 0.8 % . [facility] Erythrocyte distribution wid th Auto (RBC) [Ratio]Ordered By: CANDICE Cody on 08-02-2022 Erythrocyte distribution width (RBC) [Ratio] 17.8 % 11.9-15.3 [facility] Estimated glomerular filtrat ion rate (GFR) non- AmericanOrdered By: JASON Cody on 08-02-2022 GFR/1.73 sq M.predicted among non-blacks MDRD (S/P/Bld) [Vol rate/Area] > 60 mL/Min [facility] Globulin Calc (S) [Mass/Vol] Ordered By: CANDICE Cody on 08-02-2022 Globulin (S) [Mass/Vol] 3.1 g/dL [facility] Hematocrit Auto (Bld) [Volum e fraction]Ordered By: CANDICE Cody on 08-02-2022 Hematocrit (Bld) [Volume fraction] 34.8 % 34.0-46.4 [facility] Hemoglobin [Mass/volume] in BloodOrdered By: CANDICE Cody on 08-02-2022 Hemoglobin (Bld) [Mass/Vol] 11.5 g/dL 11.8-15.4 [facility] Leukocytes [#/volume] correc nneka for nucleated erythrocytes in Blood by Automated counOrdered By: CANDICE Cody on 08-02-2022 WBC corrected for nucl RBC Auto (Bld) [#/Vol] 9.1 10*3/uL 3.8-11.6 [facility] Lymphocytes Auto (Bld) [#/Vo l]Ordered By: CANDICE Cody on 08-02-2022 Lymphocytes (Bld) [#/Vol] 1.6 10*3/uL 1.00-4.8 [facility] Lymphocytes/100 WBC Auto (Bl d)Ordered By: CANDICE Cody on 08-02-2022 Lymphocytes/100 WBC (Bld) 17.0 % . [facility] MCH Auto (RBC) [Entitic mass ]Ordered By: CANDICE Cody on 08-02-2022 MCH (RBC) [Entitic mass] 32.3 pg 24.7-34.3 [facility] MCHC Auto (RBC) [Mass/Vol]Or dered By: CANDICE Cody on 08-02-2022 MCHC (RBC) [Mass/Vol] 33.2 g/dL 32.0-35.0 [facility] MCV Auto (RBC) [Entitic vol] Ordered By: CANDICE Cody on 08-02-2022 MCV (RBC) [Entitic vol] 97.4 fL 80-100 [facility] Monocytes Auto (Bld) [#/Vol] Ordered By: CANDICE Cody on 08-02-2022 Monocytes (Bld) [#/Vol] 0.6 10*3/uL 0.0-0.8 [facility] Monocytes/100 WBC Auto (Bld) Ordered By: CANDICE Coyd on 08-02-2022 Monocytes/100 WBC (Bld) 6.8 % . [facility] Neutrophils Auto (Bld) [#/Vo l]Ordered By: CANDICE Cody on 08-02-2022 Neutrophils (Bld) [#/Vol] 6.9 10*3/uL 1.8-7.7 [facility] Neutrophils/100 WBC Auto (Bl d)Ordered By: CANDICE Cody on 08-02-2022 Neutrophils/100 WBC (Bld) 75.1 % . [facility] No Panel InformationOrdered By: CANDICE Cody on 08-02-2022 Estimated GFR () > 60 mL/Min [facility] Comment on above: GFR estimated refere nce range: According to KDOQI guidelines, <60 ml/min/1.73m2 is sufficient to diagnose a patient with chronic kidney disease. Pharmacy Creatinine Clearance (Chem 152.15 [facility] Nucleated erythrocytes [Pres ence] in Blood by Automated countOrdered By: CANDICE Cody on 08-02-2022 Nucleated RBC Auto Ql (Bld) 0.0 /100{WBC} 0-0.5 [facility] Platelet mean volume Auto (B ld) [Entitic vol]Ordered By: CANDICE Cody on 08-02-2022 Platelet mean volume (Bld) [Entitic vol] 8.2 fL 6.3-10.7 [facility] Platelets Auto (Bld) [#/Vol] Ordered By: CANDICE Cody on 08-02-2022 Platelets (Bld) [#/Vol] 130 10*3/uL 150-450 [facility] Protein [Mass/volume] in Ser um or PlasmaOrdered By: CANDICE Cody on 08-02-2022 Protein [Mass/Vol] 5.8 g/dL 6.1-7.9 [facility] RBC Auto (Bld) [#/Vol]Ordere d By: CANDICE Cody on 08-02-2022 RBC (Bld) [#/Vol] 3.57 10*6/uL 3.60-5.00 [facility] Reagin Ab [Presence] in Seru m by RPROrdered By: CANDICE Cody on 08-02-2022 Reagin Ab RPR Ql (S) Non-Reactive Non Reactive [facility] Comment on above: Performed at: [place] [id number] Director: Prabhakar Warren PhD, Phone: [phone] Serum or plasma alanine cox otransferase measurement without P-5'-P (enzymatic activiOrdered By: CANDICE Cody on 08-02-2022 ALT No additional P-5'-P [Catalytic activity/Vol] 12 U/L 10-60 [facility] Serum or plasma albumin/glob ulin mass ratioOrdered By: CANDICE Cody on 08-02-2022 Albumin/Globulin [Mass ratio] 0.9 {ratio} [facility] Serum or plasma alkaline sam sphatase measurement (enzymatic activity/volume)Ordered By: CANDICE Cody on 08-02-2022 ALP [Catalytic activity/Vol] 97 U/L 32-92 [facility] Serum or plasma anion gap de terminationOrdered By: CANDICE Cody on 08-02-2022 Anion gap [Moles/Vol] 11.3 mmol/L 6.0-15.0 [facility] Serum or plasma aspartate am inotransferase measurement (enzymatic activity/volume)Ordered By: CANDICE Cody on 08-02-2022 AST [Catalytic activity/Vol] 19 U/L 10-42 [facility] Serum or plasma calcium katie urement (mass/volume)Ordered By: CANDICE Cody on 08-02-2022 Calcium [Mass/Vol] 9.6 mg/dL 8.2-10.2 [facility] Serum or plasma chloride victorino surement (moles/volume)Ordered By: CANDICE Cody on 08-02-2022 Chloride [Moles/Vol] 107 mmol/L 95-114 [facility] Serum or plasma glucose katie urement (mass/volume)Ordered By: CANDICE Cody on 08-02-2022 Glucose [Mass/Vol] 84 mg/dL 70-100 [facility] Comment on above: ADA recommended refe rence rangeRandom Glucose Reference Range is dependent on time and content of last meal. Glucose of more than 200 mg/dL in a nonstressed, ambulatory subject supports the diagnosis of Diabetes Mellitus. Serum or plasma potassium me asurement (moles/volume)Ordered By: CANDICE Cody on 08-02-2022 Potassium [Moles/Vol] 3.8 mmol/L 3.5-5.1 [facility] Serum or plasma sodium measu rement (moles/volume)Ordered By: CANDICE Cody on 08-02-2022 Sodium [Moles/Vol] 135 mmol/L 136-146 [facility] Serum or plasma total biliru bin measurement (mass/volume)Ordered By: CANDICE Cody on 08-02-2022 Bilirubin [Mass/Vol] 0.6 mg/dL 0.3-1.2 [facility] Serum or plasma total carbon dioxide measurement (moles/volume)Ordered By: JASON Cody on 08-02-2022 CO2 [Moles/Vol] 20.5 mmol/L 22.0-30.0 [facility] Serum or plasma urea nitroge n measurement (mass/volume)Ordered By: CANDICE Cody on 08-02-2022 Urea nitrogen [Mass/Vol] 6 mg/dL 9-23 [facility] Serum or plasma uric acid me asurement (mass/volume)Ordered By: CANDICE Cody on 08-02-2022 Urate [Mass/Vol] 4.5 mg/dL 2.6-7.2 [facility] WBC Auto (Bld) [#/Vol]Ordere d By: CANDICE Cody on 08-02-2022 WBC (Bld) [#/Vol] 9.1 10*3/uL 3.8-11.6 [facility] Amphetamine Screen Ql (U)Ord ered By: CANDICE Cody on 08-01-2022 Amphetamines Ql (U) Negative Negative [facility] Automated erythrocytes count in urine sediment (number/area)Ordered By: CANDICE Cody on 08-01-2022 RBC Auto (Urine sed) [#/Area] 3-4 [HPF] 0-4 [facility] Automated leukocytes count i n urine sediment (number/area)Ordered By: CANDICE Cody on 08-01-2022 WBC Auto (Urine sed) [#/Area] 50-100 [HPF] 0-4 [facility] Barbiturates [Presence] in U rineOrdered By: CANDICE Cody on 08-01-2022 Barbiturates Ql (U) Negative Negative [facility] Benzodiazepines [Presence] i n UrineOrdered By: CANDICE Cody on 08-01-2022 Benzodiazepines Ql (U) Negative Negative [facility] Bilirubin Test strip Ql (U)O rdered By: CANDICE Cody on 08-01-2022 Bilirubin Ql (U) Negative Negative [facility] Color Auto (U)Ordered By: MD CAMILLE Cody on 08-01-2022 Color (U) Yellow Yellow [facility] Ketones Auto test strip (U) [Mass/Vol]Ordered By: CANDICE Cody on 08-01-2022 Ketones (U) [Mass/Vol] Negative Negative [facility] Laboratory - Drug toxicology Ordered By: CANDICE Cody on 08-01-2022 Opiates Ql (U) Negative Negative [facility] Laboratory - UrinalysisOrder ed By: CANDICE Cody on 08-01-2022 Hyaline casts LM Ql (Urine sed) 0-8 [LPF] 0-8 [facility] Nitrite Test strip Ql (U)Ord ered By: CANDICE Cody on 08-01-2022 Nitrite Ql (U) Negative Negative [facility] Phencyclidine Screen Ql (U)O rdered By: CANDICE Cody on 08-01-2022 Phencyclidine Ql (U) Negative Negative [facility] Comment on above: These are unconfirme d results and should not be used for legal purposes. Drug Cut-Off Concentration: AMPH 1000 ng/mL BOO 200 ng/mL HELGA 200 ng/mL COCM 300 ng/mL OP 300 ng/mL PCP 25 ng/mL Protein Auto test strip (U) [Mass/Vol]Ordered By: CANDICE Cody on 08-01-2022 Protein (U) [Mass/Vol] Negative Negative [facility] Specific gravity Auto test s trip (U) [Rel density]Ordered By: CANDICE Cody on 08-01-2022 Specific gravity (U) [Rel density] 1.014 1.001-1.030 [facility] Squamous epithelial cells de tection in urine sediment by light microscopyOrdered By: CANDICE Cody on 08-01-2022 Epithelial cells.squamous LM Ql (Urine sed) 5-9 [HPF] 0-2 [facility] Urine bacteria detection by automated methodOrdered By: CANDICE Cody on 08-01-2022 Bacteria Auto Ql (U) None seen None Seen [facility] Urine clarity by refractomet ry automatedOrdered By: CANDICE Cody on 08-01-2022 Clarity Refractometry automated (U) Cloudy Clear [facility] Urine cocaine detectionOrder ed By: CANDICE Cody on 08-01-2022 Cocaine Ql (U) Negative Negative [facility] Urine culture routineOrdered By: CANDICE Cody on 08-01-2022 Bacteria identified Cx Nom (U) 2 Days [facility] Bacteria identified Cx Nom (U) 2 Days [facility] Urine glucose measurement by automated test strip (mass/volume)Ordered By: JASON Cody on 08-01-2022 Glucose Auto test strip (U) [Mass/Vol] Normal mg/dL Normal [facility] Urine hemoglobin detection b y automated test stripOrdered By: CANDICE Cody on 08-01-2022 Hemoglobin Auto test strip Ql (U) Negative Negative [facility] Urine leukocyte esterase det ection by automated test stripOrdered By: CANDICE Cody on 08-01-2022 Leukocyte esterase Auto test strip Ql (U) 4+ Negative [facility] Urobilinogen Auto test strip (U) [Mass/Vol]Ordered By: CANDICE Cody on 08-01-2022 Urobilinogen (U) [Mass/Vol] Normal mg/dL Normal [facility] pH Auto test strip (U)Ordere d By: CANDICE Cody on 08-01-2022 pH (U) 5.5 [pH] 5.0-9.0 [facility] S. agalactiae Org specific c x Ql (Unsp spec)Ordered By: Urbano Palma on 07-25-2022 Group B Streptococcus Culture Strep. agalactiae Grp B [facility] Group B Streptococcus Culture Strep. agalactiae Grp B [facility] Office Visit (Cardiology)on 07-22-2022 Follow-up visit Diagnoses/Problems [...] 6 month follow-up with [facility]. 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 Personal review of ECG and cardiac data reviewed . Outside records: OV with me December 2021 Device check December 2021 ECG December 2021 Device Check: Today. [employer] 4798 pacemaker. Estimate longevity device over 7 years. [...] Overweight AHA (more content not included)... Normal [employer] Tobacco Screening.on 023 Fall risk assessment a) No falls within the last year [facility] DO Work Phone: Tobacco use status [facility] b) No [facility] [facility] Work Phone: Tobacco Screening. Yes [facility] [employer] DO Work Phone: Amphetamine Screen Ql (U)Ord ered By: Michael Cerda on 07-15-2022 Amphetamines Ql (U) Negative Negative [facility] Automated erythrocytes count in urine sediment (number/area)Ordered By: Michael Cerda on 07-15-2022 RBC Auto (Urine sed) [#/Area] 0-1 [HPF] 0-4 [facility] Automated leukocytes count i n urine sediment (number/area)Ordered By: Michael Cerda on 07-15-2022 WBC Auto (Urine sed) [#/Area] 50-100 [HPF] 0-4 [facility] Barbiturates [Presence] in U rineOrdered By: Michael Cerda on 07-15-2022 Barbiturates Ql (U) Negative Negative [facility] Basophils Auto (Bld) [#/Vol] Ordered By: Michael Cerda on 07-15-2022 Basophils (Bld) [#/Vol] 0.0 10*3/uL 0.0-0.2 [facility] Basophils/100 WBC Auto (Bld) Ordered By: Michael Cerda on 07-15-2022 Basophils/100 WBC (Bld) 0.4 % . [facility] Benzodiazepines [Presence] i n UrineOrdered By: Michael Cerda on 07-15-2022 Benzodiazepines Ql (U) Negative Negative [facility] Bilirubin Test strip Ql (U)O rdered By: Michael Cerda on 07-15-2022 Bilirubin Ql (U) Negative Negative [facility] Body fluid albumin measureme nt (mass/volume)Ordered By: Michael Cerda on 07-15-2022 Albumin (Body fld) [Mass/Vol] 2.9 g/dL 3.2-5.5 [facility] Cannabinoids [Presence] in U rine by Screen methodOrdered By: Michael Cerda on 07-15-2022 Cannabinoids Screen Ql (U) Negative Negative [facility] Comment on above: These are unconfirme d results and should not be used for legal purposes. Drug Cut-Off Concentration: AMPH 1000 ng/mL BOO 200 ng/mL HELGA 200 ng/mL COCM 300 ng/mL OP 300 ng/mL PCP 25 ng/mL THC 20 ng/mL Cholesterol [Mass/volume] in Serum or PlasmaOrdered By: Eduardo Swain on 07-15-2022 Cholesterol [Mass/Vol] 250 mg/dL 140-200 [facility] Comment on above: Chol less than 200 m g/dl low riskChol 201-239 mg/dl borderline riskChol 240 mg/dl and greater high risk Cholesterol in LDL Calc [Mas s/Vol]Ordered By: Eduardo Swain on 07-15-2022 Cholesterol in LDL [Mass/Vol] 138 mg/dL 0-100 [facility] Comment on above: LDL ATP III CLASSIFI CATIONLDL less than 100 mg/dL OptimalLDL 100-129 mg/dL Near or above optimalLDL 130-159 mg/dL Borderline highLDL 160-189 mg/dL HighLDL greater than 189 mg/dL Very high Cholesterol in VLDL Calc [Ma ss/Vol]Ordered By: Eduardo Swain on 07-15-2022 Cholesterol in VLDL [Mass/Vol] 40 mg/dL [facility] Color Auto (U)Ordered By: Lorene Cerda on 07-15-2022 Color (U) Yellow Yellow [facility] Creatinine and Glomerular fi ltration rate.predicted panel (S/P/Bld)Ordered By: Michael Cerda on 07-15-2022 Creatinine [Mass/Vol] 0.66 mg/dL 0.44-1.03 [facility] Eosinophils Auto (Bld) [#/Vo l]Ordered By: Michael Cerda on 07-15-2022 Eosinophils (Bld) [#/Vol] 0.0 10*3/uL 0.0-0.45 [facility] Eosinophils/100 WBC Auto (Bl d)Ordered By: Michael Cerda on 07-15-2022 Eosinophils/100 WBC (Bld) 0.4 % . [facility] Erythrocyte distribution wid th Auto (RBC) [Ratio]Ordered By: Michael Cerda on 07-15-2022 Erythrocyte distribution width (RBC) [Ratio] 18.8 % 11.9-15.3 [facility] Estimated glomerular filtrat ion rate (GFR) non- AmericanOrdered By: Michael Cerda on 07-15-2022 GFR/1.73 sq M.predicted among non-blacks MDRD (S/P/Bld) [Vol rate/Area] > 60 mL/Min [facility] Globulin Calc (S) [Mass/Vol] Ordered By: Michael Cerda on 07-15-2022 Globulin (S) [Mass/Vol] 3.2 g/dL [facility] Hematocrit Auto (Bld) [Volum e fraction]Ordered By: Michael Cerda on 07-15-2022 Hematocrit (Bld) [Volume fraction] 34.4 % 34.0-46.4 [facility] Hemoglobin [Mass/volume] in BloodOrdered By: Michael Cerda on 07-15-2022 Hemoglobin (Bld) [Mass/Vol] 11.3 g/dL 11.8-15.4 [facility] Ketones Auto test strip (U) [Mass/Vol]Ordered By: Michael Cerda on 07-15-2022 Ketones (U) [Mass/Vol] 2+ Negative [facility] Ordered By: Michael Cerda on 07-15-2022 Opiates Ql (U) Negative Negative [facility] Laboratory - UrinalysisOrder ed By: Michael Cerda on 07-15-2022 Hyaline casts LM Ql (Urine sed) 0-8 [LPF] 0-8 [facility] Leukocytes [#/volume] correc nneka for nucleated erythrocytes in Blood by Automated counOrdered By: Michael Cerda on 07-15-2022 WBC corrected for nucl RBC Auto (Bld) [#/Vol] 7.8 10*3/uL 3.8-11.6 [facility] Lymphocytes Auto (Bld) [#/Vo l]Ordered By: Michael Cerda on 07-15-2022 Lymphocytes (Bld) [#/Vol] 1.2 10*3/uL 1.00-4.8 [facility] Lymphocytes/100 WBC Auto (Bl d)Ordered By: Michael Cerda on 07-15-2022 Lymphocytes/100 WBC (Bld) 15.2 % . [facility] MCH Auto (RBC) [Entitic mass ]Ordered By: Michael Cerda on 07-15-2022 MCH (RBC) [Entitic mass] 31.8 pg 24.7-34.3 [facility] MCHC Auto (RBC) [Mass/Vol]Or dered By: Michael Cerda on 07-15-2022 MCHC (RBC) [Mass/Vol] 33.0 g/dL 32.0-35.0 [facility] MCV Auto (RBC) [Entitic vol] Ordered By: Michael Cerda on 07-15-2022 MCV (RBC) [Entitic vol] 96.4 fL 80-100 [facility] Monocyte distribution width [Entitic volume] in Blood by AutomatedOrdered By: Michael Cerda on 07-15-2022 Monocyte distribution width Auto (Bld) [Entitic vol] 19.01 % 0.00-20.00 [facility] Monocytes Auto (Bld) [#/Vol] Ordered By: Michael Cerda on 07-15-2022 Monocytes (Bld) [#/Vol] 0.4 10*3/uL 0.0-0.8 [facility] Monocytes/100 WBC Auto (Bld) Ordered By: Michael Cerda on 07-15-2022 Monocytes/100 WBC (Bld) 5.1 % . [facility] Neutrophils Auto (Bld) [#/Vo l]Ordered By: Michael Cerda on 07-15-2022 Neutrophils (Bld) [#/Vol] 6.1 10*3/uL 1.8-7.7 [facility] Neutrophils/100 WBC Auto (Bl d)Ordered By: Michael Cerda on 07-15-2022 Neutrophils/100 WBC (Bld) 78.9 % . [facility] Nitrite Test strip Ql (U)Ord ered By: Michael Cerda on 07-15-2022 Nitrite Ql (U) Negative Negative [facility] No Panel InformationOrdered By: Eduardo Swain on 07-15-2022 25-Hydroxy Vitamin D Total 38.8 ng/mL 30-100 [facility] Comment on above: VITAMIN D STATUS 25( [place])VITAMIN D RANGE (ng/mL) Deficient <20 Insufficient 20 to <30Sufficient 30 to 100Reference: Franklyn MF,Benjamin NC, Andreina MARQUEZ, et al. Evaluation,treatment, and prevention of vitamin D deficiency; an Endocrine Society clinical practice guideline. JCEM. 2010; 96(7):1911-30. No Panel InformationOrdered By: Michael Cerda on 07-15-2022 Estimated GFR () > 60 mL/Min [facility] Comment on above: GFR estimated refere nce range: According to KDOQI guidelines, <60 ml/min/1.73m2 is sufficient to diagnose a patient with chronic kidney disease. Pharmacy Creatinine Clearance (Chem 148.00 [facility] Nucleated erythrocytes [Pres ence] in Blood by Automated countOrdered By: Michael Cerda on 07-15-2022 Nucleated RBC Auto Ql (Bld) 0.1 /100{WBC} 0-0.5 [facility] Phencyclidine Screen Ql (U)O rdered By: Michael Cerda on 07-15-2022 Phencyclidine Ql (U) Negative Negative [facility] Platelet mean volume Auto (B ld) [Entitic vol]Ordered By: Michael Cerda on 07-15-2022 Platelet mean volume (Bld) [Entitic vol] 7.9 fL 6.3-10.7 [facility] Platelets Auto (Bld) [#/Vol] Ordered By: Michael Cerda on 07-15-2022 Platelets (Bld) [#/Vol] 157 10*3/uL 150-450 [facility] Protein Auto test strip (U) [Mass/Vol]Ordered By: Michael Cerda on 07-15-2022 Protein (U) [Mass/Vol] Negative Negative [facility] Protein [Mass/volume] in Ser um or PlasmaOrdered By: Michael Cerda on 07-15-2022 Protein [Mass/Vol] 6.1 g/dL 6.1-7.9 [facility] RBC Auto (Bld) [#/Vol]Ordere d By: Michael Cerda on 07-15-2022 RBC (Bld) [#/Vol] 3.57 10*6/uL 3.60-5.00 [facility] Serum or plasma alanine cox otransferase measurement without P-5'-P (enzymatic activiOrdered By: Michael Cerda on 07-15-2022 ALT No additional P-5'-P [Catalytic activity/Vol] 14 U/L 10-60 [facility] Serum or plasma albumin/glob ulin mass ratioOrdered By: Michael Cerda on 07-15-2022 Albumin/Globulin [Mass ratio] 0.9 {ratio} [facility] Serum or plasma alkaline sam sphatase measurement (enzymatic activity/volume)Ordered By: Michael Cerda on 07-15-2022 ALP [Catalytic activity/Vol] 83 U/L 32-92 [facility] Serum or plasma anion gap de terminationOrdered By: Michael Cerda on 07-15-2022 Anion gap [Moles/Vol] 13.3 mmol/L 6.0-15.0 [facility] Serum or plasma aspartate am inotransferase measurement (enzymatic activity/volume)Ordered By: Michael Cerda on 07-15-2022 AST [Catalytic activity/Vol] 22 U/L 10-42 [facility] Serum or plasma calcium katie urement (mass/volume)Ordered By: Michael Cerda on 07-15-2022 Calcium [Mass/Vol] 9.5 mg/dL 8.2-10.2 [facility] Serum or plasma chloride victorino surement (moles/volume)Ordered By: Michael Cerda on 07-15-2022 Chloride [Moles/Vol] 104 mmol/L 95-114 [facility] Serum or plasma ethanol katie urement (mass/volume)Ordered By: Michael Cerda on 07-15-2022 Ethanol [Mass/Vol] mg/dL [facility] Ethanol [Mass/Vol] TNP [facility] Comment on above: Test not performed Serum or plasma glucose katie urement (mass/volume)Ordered By: Michael Cerda on 07-15-2022 Glucose [Mass/Vol] 82 mg/dL 70-100 [facility] Comment on above: ADA recommended refe rence rangeRandom Glucose Reference Range is dependent on time and content of last meal. Glucose of more than 200 mg/dL in a nonstressed, ambulatory subject supports the diagnosis of Diabetes Mellitus. Serum or plasma high density lipoprotein (HDL) cholesterol measurementOrdered By: Eduardo Swain on 07-15-2022 Cholesterol in HDL [Mass/Vol] 72 mg/dL 35-85 [facility] Comment on above: HDL CHOL ATP-III CLA SSIFICATION Cardiovascular RiskHDL > or equal to 60 mg/dL LOWHDL < 40 mg/dL HIGH Serum or plasma potassium me asurement (moles/volume)Ordered By: Michael Cerda on 07-15-2022 Potassium [Moles/Vol] 3.6 mmol/L 3.5-5.1 [facility] Serum or plasma sodium measu rement (moles/volume)Ordered By: Michael Cerda on 07-15-2022 Sodium [Moles/Vol] 135 mmol/L 136-146 [facility] Serum or plasma total biliru bin measurement (mass/volume)Ordered By: Michael Cerda on 07-15-2022 Bilirubin [Mass/Vol] 0.6 mg/dL 0.3-1.2 [facility] Serum or plasma total carbon dioxide measurement (moles/volume)Ordered By: Michael Cerda on 07-15-2022 CO2 [Moles/Vol] 21.3 mmol/L 22.0-30.0 [facility] Serum or plasma total choles terol/high density lipoprotein (HDL) cholesterol mass ratOrdered By: Eduardo Swain on 07-15-2022 Cholesterol.total/Chol esterol in HDL [Mass ratio] 3.5 {ratio} <5.0 [facility] Serum or plasma urea nitroge n measurement (mass/volume)Ordered By: Michael Cerda on 07-15-2022 Urea nitrogen [Mass/Vol] 4 mg/dL 9-23 [facility] Specific gravity Auto test s trip (U) [Rel density]Ordered By: Michael Cerda on 07-15-2022 Specific gravity (U) [Rel density] 1.010 1.001-1.030 [facility] Squamous epithelial cells de tection in urine sediment by light microscopyOrdered By: Michael Cerda on 07-15-2022 Epithelial cells.squamous LM Ql (Urine sed) 5-9 [HPF] 0-2 [facility] TSH DL <= 0.005 mIU/L QnOrde red By: Eduardo Swain on 07-15-2022 TSH Qn 2.04 m[IU]/L 0.45-5.33 [facility] Triglyceride [Mass/volume] i n Serum or PlasmaOrdered By: Eduardo Swain on 07-15-2022 Triglyceride [Mass/Vol] 200 mg/dL 35-149 [facility] Comment on above: TRIG ATP III CLASSIF ICATIONTRIG less than 150 mg/dL NormalTRIG 150-199 mg/dL Borderline highTRIG 200-500 mg/dL High TRIG greater than 500 mg/dL Very highStandard traceable to the Center for Disease Conrtrol and Prevention (CDC) test method. Urine bacteria detection by automated methodOrdered By: Michael Cerda on 07-15-2022 Bacteria Auto Ql (U) None seen None Seen [facility] Urine clarity by refractomet ry automatedOrdered By: Michael Cerda on 07-15-2022 Clarity Refractometry automated (U) Cloudy Clear [facility] Urine cocaine detectionOrder ed By: Michael Cerda on 07-15-2022 Cocaine Ql (U) Negative Negative [facility] Urine culture routineOrdered By: Michael Cerda on 07-15-2022 Bacteria identified Cx Nom (U) 2 Days [facility] Urine glucose measurement by automated test strip (mass/volume)Ordered By: Michael Cerda on 07-15-2022 Glucose Auto test strip (U) [Mass/Vol] Normal mg/dL Normal [facility] Urine hemoglobin detection b y automated test stripOrdered By: Michael Cerda on 07-15-2022 Hemoglobin Auto test strip Ql (U) Negative Negative [facility] Urine leukocyte esterase det ection by automated test stripOrdered By: Michael Cerda on 07-15-2022 Leukocyte esterase Auto test strip Ql (U) 4+ Negative [facility] Urobilinogen Auto test strip (U) [Mass/Vol]Ordered By: Michael Cerda on 07-15-2022 Urobilinogen (U) [Mass/Vol] Normal mg/dL Normal [facility] WBC Auto (Bld) [#/Vol]Ordere d By: Michael Cerda on 07-15-2022 WBC (Bld) [#/Vol] 7.8 10*3/uL 3.8-11.6 [facility] pH Auto test strip (U)Ordere d By: Michael Cerda on 07-15-2022 pH (U) 5.5 [pH] 5.0-9.0 [facility] Basophils Auto (Bld) [#/Vol] Ordered By: Urbano Palma on 07-09-2022 Basophils (Bld) [#/Vol] 0.0 10*3/uL 0.0-0.2 [facility] Basophils/100 WBC Auto (Bld) Ordered By: Urbano Palma on 07-09-2022 Basophils/100 WBC (Bld) 0.4 % . [facility] Eosinophils Auto (Bld) [#/Vo l]Ordered By: Urbano Palma on 07-09-2022 Eosinophils (Bld) [#/Vol] 0.1 10*3/uL 0.0-0.45 [facility] Eosinophils/100 WBC Auto (Bl d)Ordered By: Urbano Palma on 07-09-2022 Eosinophils/100 WBC (Bld) 1.0 % . [facility] Erythrocyte distribution wid th Auto (RBC) [Ratio]Ordered By: Urbano Palma on 07-09-2022 Erythrocyte distribution width (RBC) [Ratio] 19.0 % 11.9-15.3 [facility] Hematocrit Auto (Bld) [Volum e fraction]Ordered By: Urbano Palma on 07-09-2022 Hematocrit (Bld) [Volume fraction] 37.4 % 34.0-46.4 [facility] Hemoglobin [Mass/volume] in BloodOrdered By: Urbano Palma on 07-09-2022 Hemoglobin (Bld) [Mass/Vol] 12.2 g/dL 11.8-15.4 [facility] Leukocytes [#/volume] correc nneka for nucleated erythrocytes in Blood by Automated counOrdered By: Urbano Palma on 07-09-2022 WBC corrected for nucl RBC Auto (Bld) [#/Vol] 8.1 10*3/uL 3.8-11.6 [facility] Lymphocytes Auto (Bld) [#/Vo l]Ordered By: Urbano Palma on 07-09-2022 Lymphocytes (Bld) [#/Vol] 1.2 10*3/uL 1.00-4.8 [facility] Lymphocytes/100 WBC Auto (Bl d)Ordered By: Urbano Palma on 07-09-2022 Lymphocytes/100 WBC (Bld) 14.9 % . [facility] MCH Auto (RBC) [Entitic mass ]Ordered By: Urbano Palma on 07-09-2022 MCH (RBC) [Entitic mass] 31.4 pg 24.7-34.3 [facility] MCHC Auto (RBC) [Mass/Vol]Or dered By: Urbano Palma on 07-09-2022 MCHC (RBC) [Mass/Vol] 32.7 g/dL 32.0-35.0 [facility] MCV Auto (RBC) [Entitic vol] Ordered By: Urbano Palma on 07-09-2022 MCV (RBC) [Entitic vol] 95.8 fL 80-100 [facility] Monocytes Auto (Bld) [#/Vol] Ordered By: Urbano Palma on 07-09-2022 Monocytes (Bld) [#/Vol] 0.4 10*3/uL 0.0-0.8 [facility] Monocytes/100 WBC Auto (Bld) Ordered By: Urbano Palma on 07-09-2022 Monocytes/100 WBC (Bld) 5.1 % . [facility] Neutrophils Auto (Bld) [#/Vo l]Ordered By: Urbano Palma on 07-09-2022 Neutrophils (Bld) [#/Vol] 6.3 10*3/uL 1.8-7.7 [facility] Neutrophils/100 WBC Auto (Bl d)Ordered By: Urbano Palma on 07-09-2022 Neutrophils/100 WBC (Bld) 78.6 % . [facility] Nucleated erythrocytes [Pres ence] in Blood by Automated countOrdered By: Urbano Palma on 07-09-2022 Nucleated RBC Auto Ql (Bld) 0.1 /100{WBC} 0-0.5 [facility] Platelet mean volume Auto (B ld) [Entitic vol]Ordered By: Urbano Palma on 07-09-2022 Platelet mean volume (Bld) [Entitic vol] 8.2 fL 6.3-10.7 [facility] Platelets Auto (Bld) [#/Vol] Ordered By: Urbano Palma on 07-09-2022 Platelets (Bld) [#/Vol] 180 10*3/uL 150-450 [facility] RBC Auto (Bld) [#/Vol]Ordere d By: Urbano Palma on 07-09-2022 RBC (Bld) [#/Vol] 3.91 10*6/uL 3.60-5.00 [facility] WBC Auto (Bld) [#/Vol]Ordere d By: Urbano Palma on 07-09-2022 WBC (Bld) [#/Vol] 8.1 10*3/uL 3.8-11.6 [facility] Serum or plasma glucose tole cecelia 3 hours panelOrdered By: Urbano Palma on 06-30-2022 Glucose tolerance 3 hours panel See comment [facility] Comment on above: FASTING 82 Col: 03/14 0616 1HR GLU 215 Col: 06/30/22 0800 2HR GLU 194 Col: 06/30/22 0901 3HR GLU 71 Col: 06/30/22 1000 Amphetamine Screen Ql (U)Ord ered By: DELANEY CARLISLE on 06-26-2022 Amphetamines Ql (U) Negative Negative [facility] Automated erythrocytes count in urine sediment (number/area)Ordered By: DELANEY CARLISLE on 06-26-2022 RBC Auto (Urine sed) [#/Area] 1-2 [HPF] 0-4 [facility] Automated leukocytes count i n urine sediment (number/area)Ordered By: DELANEY CARLISLE on 06-26-2022 WBC Auto (Urine sed) [#/Area] 50-100 [HPF] 0-4 [facility] Automated urine hyaline cast s count (number/volume)Ordered By: DELANEY CARLISLE on 06-26-2022 Hyaline casts Auto (U) [#/Vol] None seen [LPF] 0-1 [facility] Automated urine sediment claudia cium oxalate crystal count by microscopy (number/high powOrdered By: DELANEY CARLISLE on 06-26-2022 Calcium oxalate crystals LM.HPF (Urine sed) [#/Area] 3+ [HPF] [facility] Barbiturates [Presence] in U rineOrdered By: DELANEY CARLISLE on 06-26-2022 Barbiturates Ql (U) Negative Negative [facility] Benzodiazepines [Presence] i n UrineOrdered By: DELANEY CARLISLE on 06-26-2022 Benzodiazepines Ql (U) Negative Negative [facility] Bilirubin Test strip Ql (U)O rdered By: DELANEY CARLISLE on 06-26-2022 Bilirubin Ql (U) 1+ Negative [facility] Color Auto (U)Ordered By: VLAD CARLISLE on 06-26-2022 Color (U) Dark yellow Yellow [facility] fibronectinOrdered By: DELANEY CARLISLE on 06-26-2022 Fibronectin. (Vag fld) [Mass/Vol] Negative Negative [facility] Ketones Auto test strip (U) [Mass/Vol]Ordered By: DELANEY CARLISLE on 06-26-2022 Ketones (U) [Mass/Vol] 1+ Negative [facility] Laboratory - Drug toxicology Ordered By: DELANEY CARLISLE on 06-26-2022 Opiates Ql (U) Negative Negative [facility] Nitrite Test strip Ql (U)Ord ered By: DELANEY CARLISLE on 06-26-2022 Nitrite Ql (U) Negative Negative [facility] No Panel InformationOrdered By: DELANEY CARLISLE on 06-26-2022 Membranes Rupture (PAMG-1) Negative Negative [facility] Phencyclidine Screen Ql (U)O rdered By: DELANEY CARLISLE on 06-26-2022 Phencyclidine Ql (U) Negative Negative [facility] Comment on above: These are unconfirme d results and should not be used for legal purposes. Drug Cut-Off Concentration: AMPH 1000 ng/mL BOO 200 ng/mL HELGA 200 ng/mL COCM 300 ng/mL OP 300 ng/mL PCP 25 ng/mL Protein Auto test strip (U) [Mass/Vol]Ordered By: DELANEY CARLISLE on 06-26-2022 Protein (U) [Mass/Vol] 30 mg/dL Negative [facility] Specific gravity Auto test s trip (U) [Rel density]Ordered By: DELANEY CARLISLE on 06-26-2022 Specific gravity (U) [Rel density] 1.029 1.001-1.030 [facility] Squamous epithelial cells de tection in urine sediment by light microscopyOrdered By: DELANEY CARLISLE on 06-26-2022 Epithelial cells.squamous LM Ql (Urine sed) 5-9 [HPF] 0-2 [facility] Urine bacteria detection by automated methodOrdered By: DELANEY CARLISLE on 06-26-2022 Bacteria Auto Ql (U) None seen None Seen [facility] Urine clarity by refractomet ry automatedOrdered By: DELANEY CARLISLE on 06-26-2022 Clarity Refractometry automated (U) Turbid Clear [facility] Urine cocaine detectionOrder ed By: DELANEY CARLISLE on 06-26-2022 Cocaine Ql (U) Negative Negative [facility] Urine culture routineOrdered By: DELANEY CARLISLE on 06-26-2022 Bacteria identified Cx Nom (U) Cinthya albicans [facility] Urine glucose measurement by automated test strip (mass/volume)Ordered By: DELANEY CARLISLE on 06-26-2022 Glucose Auto test strip (U) [Mass/Vol] Normal mg/dL Normal [facility] Urine hemoglobin detection b y automated test stripOrdered By: DELANEY CARLISLE on 06-26-2022 Hemoglobin Auto test strip Ql (U) Negative Negative [facility] Urine leukocyte esterase det ection by automated test stripOrdered By: DELANEY CARLISLE on 06-26-2022 Leukocyte esterase Auto test strip Ql (U) 3+ Negative [facility] Urine sediment crystal ident ification by light microscopyOrdered By: DELANEY CARLISLE on 06-26-2022 Crystals LM Nom (Urine sed) None seen [HPF] [facility] Urobilinogen Auto test strip (U) [Mass/Vol]Ordered By: DELANEY CARLISLE on 06-26-2022 Urobilinogen (U) [Mass/Vol] Normal mg/dL Normal [facility] Yeast detection in urine sed iment by light microscopyOrdered By: DELANEY CARLISLE on 06-26-2022 Yeast LM Ql (Urine sed) 2+ [HPF] None Seen [facility] pH Auto test strip (U)Ordere d By: DELANEY CARLISLE on 06-26-2022 pH (U) 5.5 [pH] 5.0-9.0 [facility] Automated erythrocytes count in urine sediment (number/area)Ordered By: Michael Cerda on 06-25-2022 RBC Auto (Urine sed) [#/Area] 3-4 [HPF] 0-4 [facility] Automated leukocytes count i n urine sediment (number/area)Ordered By: Michael Cerda on 06-25-2022 WBC Auto (Urine sed) [#/Area] Innumerable [HPF] 0-4 [facility] Basophils Auto (Bld) [#/Vol] Ordered By: PROVIDER TEMP on 06-25-2022 Basophils (Bld) [#/Vol] 0.0 10*3/uL 0.0-0.2 [facility] Basophils/100 WBC Auto (Bld) Ordered By: PROVIDER TEMP on 06-25-2022 Basophils/100 WBC (Bld) 0.1 % . [facility] Bilirubin Test strip Ql (U)O rdered By: Michael Cerda on 06-25-2022 Bilirubin Ql (U) Negative Negative [facility] Body fluid albumin measureme nt (mass/volume)Ordered By: PROVIDER TEMP on 06-25-2022 Albumin (Body fld) [Mass/Vol] 2.7 g/dL 3.2-5.5 [facility] Casts typing in urine sedime nt by light microscopyOrdered By: Michael Cerda on 06-25-2022 Casts LM Nom (Urine sed) None seen [LPF] None Seen [facility] Color Auto (U)Ordered By: Lorene Cerda on 06-25-2022 Color (U) Yellow Yellow [facility] Creatinine and Glomerular fi ltration rate.predicted panel (S/P/Bld)Ordered By: PROVIDER TEMP on 06-25-2022 Creatinine [Mass/Vol] 0.64 mg/dL 0.44-1.03 [facility] Eosinophils Auto (Bld) [#/Vo l]Ordered By: PROVIDER TEMP on 06-25-2022 Eosinophils (Bld) [#/Vol] 0.1 10*3/uL 0.0-0.45 [facility] Eosinophils/100 WBC Auto (Bl d)Ordered By: PROVIDER TEMP on 06-25-2022 Eosinophils/100 WBC (Bld) 0.7 % . [facility] Erythrocyte distribution wid th Auto (RBC) [Ratio]Ordered By: PROVIDER TEMP on 06-25-2022 Erythrocyte distribution width (RBC) [Ratio] 16.1 % 11.9-15.3 [facility] Estimated glomerular filtrat ion rate (GFR) non- AmericanOrdered By: PROVIDER TEMP on 06-25-2022 GFR/1.73 sq M.predicted among non-blacks MDRD (S/P/Bld) [Vol rate/Area] > 60 mL/Min [facility] Globulin Calc (S) [Mass/Vol] Ordered By: PROVIDER TEMP on 06-25-2022 Globulin (S) [Mass/Vol] 3.3 g/dL [facility] Hematocrit Auto (Bld) [Volum e fraction]Ordered By: PROVIDER TEMP on 06-25-2022 Hematocrit (Bld) [Volume fraction] 29.0 % 34.0-46.4 [facility] Hemoglobin [Mass/volume] in BloodOrdered By: PROVIDER TEMP on 06-25-2022 Hemoglobin (Bld) [Mass/Vol] 9.9 g/dL 11.8-15.4 [facility] Ketones Auto test strip (U) [Mass/Vol]Ordered By: Michael Cerda on 06-25-2022 Ketones (U) [Mass/Vol] 4+ Negative [facility] Laboratory - UrinalysisOrder ed By: Michael Cerda on 06-25-2022 Hyaline casts LM Ql (Urine sed) 0-1 [LPF] 0-8 [facility] Leukocytes [#/volume] correc nneka for nucleated erythrocytes in Blood by Automated counOrdered By: PROVIDER TEMP on 06-25-2022 WBC corrected for nucl RBC Auto (Bld) [#/Vol] 10.5 10*3/uL 3.8-11.6 [facility] Lymphocytes Auto (Bld) [#/Vo l]Ordered By: PROVIDER TEMP on 06-25-2022 Lymphocytes (Bld) [#/Vol] 1.8 10*3/uL 1.00-4.8 [facility] Lymphocytes/100 WBC Auto (Bl d)Ordered By: PROVIDER TEMP on 06-25-2022 Lymphocytes/100 WBC (Bld) 16.7 % . [facility] MCH Auto (RBC) [Entitic mass ]Ordered By: PROVIDER TEMP on 06-25-2022 MCH (RBC) [Entitic mass] 31.6 pg 24.7-34.3 [facility] MCHC Auto (RBC) [Mass/Vol]Or dered By: PROVIDER TEMP on 06-25-2022 MCHC (RBC) [Mass/Vol] 34.2 g/dL 32.0-35.0 [facility] MCV Auto (RBC) [Entitic vol] Ordered By: PROVIDER TEMP on 06-25-2022 MCV (RBC) [Entitic vol] 92.4 fL 80-100 [facility] Monocyte distribution width [Entitic volume] in Blood by AutomatedOrdered By: PROVIDER TEMP on 06-25-2022 Monocyte distribution width Auto (Bld) [Entitic vol] 18.74 % 0.00-20.00 [facility] Monocytes Auto (Bld) [#/Vol] Ordered By: PROVIDER TEMP on 06-25-2022 Monocytes (Bld) [#/Vol] 0.8 10*3/uL 0.0-0.8 [facility] Monocytes/100 WBC Auto (Bld) Ordered By: PROVIDER TEMP on 06-25-2022 Monocytes/100 WBC (Bld) 7.5 % . [facility] Neutrophils Auto (Bld) [#/Vo l]Ordered By: PROVIDER TEMP on 06-25-2022 Neutrophils (Bld) [#/Vol] 7.9 10*3/uL 1.8-7.7 [facility] Neutrophils/100 WBC Auto (Bl d)Ordered By: PROVIDER TEMP on 06-25-2022 Neutrophils/100 WBC (Bld) 75.0 % . [facility] Nitrite Test strip Ql (U)Ord ered By: Michael Cerda on 06-25-2022 Nitrite Ql (U) Negative Negative [facility] No Panel InformationOrdered By: PROVIDER TEMP on 06-25-2022 Estimated GFR () > 60 mL/Min [facility] Comment on above: GFR estimated refere nce range: According to KDOQI guidelines, <60 ml/min/1.73m2 is sufficient to diagnose a patient with chronic kidney disease. Pharmacy Creatinine Clearance (Chem 153.48 [facility] Nucleated erythrocytes [Pres ence] in Blood by Automated countOrdered By: PROVIDER TEMP on 06-25-2022 Nucleated RBC Auto Ql (Bld) 0.3 /100{WBC} 0-0.5 [facility] Platelet mean volume Auto (B ld) [Entitic vol]Ordered By: PROVIDER TEMP on 06-25-2022 Platelet mean volume (Bld) [Entitic vol] 7.8 fL 6.3-10.7 [facility] Platelets Auto (Bld) [#/Vol] Ordered By: PROVIDER TEMP on 06-25-2022 Platelets (Bld) [#/Vol] 182 10*3/uL 150-450 [facility] Protein Auto test strip (U) [Mass/Vol]Ordered By: Michael Cerda on 06-25-2022 Protein (U) [Mass/Vol] Trace mg/dL Negative F [facility] Protein [Mass/volume] in Ser um or PlasmaOrdered By: PROVIDER TEMP on 06-25-2022 Protein [Mass/Vol] 6.0 g/dL 6.1-7.9 [facility] RBC Auto (Bld) [#/Vol]Ordere d By: PROVIDER TEMP on 06-25-2022 RBC (Bld) [#/Vol] 3.14 10*6/uL 3.60-5.00 [facility] Serum or plasma alanine cox otransferase measurement without P-5'-P (enzymatic activiOrdered By: PROVIDER TEMP on 06-25-2022 ALT No additional P-5'-P [Catalytic activity/Vol] 10 U/L 10-60 [facility] Serum or plasma albumin/glob ulin mass ratioOrdered By: PROVIDER TEMP on 06-25-2022 Albumin/Globulin [Mass ratio] 0.8 {ratio} [facility] Serum or plasma alkaline sam sphatase measurement (enzymatic activity/volume)Ordered By: PROVIDER TEMP on 06-25-2022 ALP [Catalytic activity/Vol] 77 U/L 32-92 [facility] Serum or plasma anion gap de terminationOrdered By: PROVIDER TEMP on 06-25-2022 Anion gap [Moles/Vol] 15.1 mmol/L 6.0-15.0 [facility] Serum or plasma aspartate am inotransferase measurement (enzymatic activity/volume)Ordered By: PROVIDER TEMP on 06-25-2022 AST [Catalytic activity/Vol] 20 U/L 10-42 [facility] Serum or plasma calcium katie urement (mass/volume)Ordered By: PROVIDER TEMP on 06-25-2022 Calcium [Mass/Vol] 9.3 mg/dL 8.2-10.2 [facility] Serum or plasma chloride victorino surement (moles/volume)Ordered By: PROVIDER TEMP on 06-25-2022 Chloride [Moles/Vol] 107 mmol/L 95-114 [facility] Serum or plasma glucose katie urement (mass/volume)Ordered By: PROVIDER TEMP on 06-25-2022 Glucose [Mass/Vol] 72 mg/dL 70-100 [facility] Comment on above: ADA recommended refe rence rangeRandom Glucose Reference Range is dependent on time and content of last meal. Glucose of more than 200 mg/dL in a nonstressed, ambulatory subject supports the diagnosis of Diabetes Mellitus. Serum or plasma potassium me asurement (moles/volume)Ordered By: PROVIDER TEMP on 06-25-2022 Potassium [Moles/Vol] 3.6 mmol/L 3.5-5.1 [facility] Serum or plasma sodium measu rement (moles/volume)Ordered By: PROVIDER TEMP on 06-25-2022 Sodium [Moles/Vol] 137 mmol/L 136-146 [facility] Serum or plasma total biliru bin measurement (mass/volume)Ordered By: PROVIDER TEMP on 06-25-2022 Bilirubin [Mass/Vol] 0.7 mg/dL 0.3-1.2 [facility] Serum or plasma total carbon dioxide measurement (moles/volume)Ordered By: PROVIDER TEMP on 06-25-2022 CO2 [Moles/Vol] 18.5 mmol/L 22.0-30.0 [facility] Serum or plasma urea nitroge n measurement (mass/volume)Ordered By: PROVIDER TEMP on 06-25-2022 Urea nitrogen [Mass/Vol] 3 mg/dL 9-23 [facility] Specific gravity Auto test s trip (U) [Rel density]Ordered By: Michael Cerda on 06-25-2022 Specific gravity (U) [Rel density] 1.016 1.001-1.030 [facility] Squamous epithelial cells de tection in urine sediment by light microscopyOrdered By: Michael Cerda on 06-25-2022 Epithelial cells.squamous LM Ql (Urine sed) 10-19 [HPF] 0-2 [facility] Troponin I.cardiac [Mass/vol ume] in Serum or Plasma by High sensitivity methodOrdered By: Michael Cerda on 06-25-2022 Troponin I.cardiac High sensitivity method [Mass/Vol] 6 pg/mL 0-15 [facility] Urine bacteria detection by automated methodOrdered By: Michael Cerda on 06-25-2022 Bacteria Auto Ql (U) 1+ None Seen [facility] Urine clarity by refractomet ry automatedOrdered By: Michael Cerda on 06-25-2022 Clarity Refractometry automated (U) Turbid Clear [facility] Urine culture routineOrdered By: Michael Cerda on 06-25-2022 Bacteria identified Cx Nom (U) 2 Days [facility] Urine glucose measurement by automated test strip (mass/volume)Ordered By: Michael Cerda on 06-25-2022 Glucose Auto test strip (U) [Mass/Vol] Normal mg/dL Normal [facility] Urine hemoglobin detection b y automated test stripOrdered By: Michael Cerda on 06-25-2022 Hemoglobin Auto test strip Ql (U) Trace Negative [facility] Urine leukocyte esterase det ection by automated test stripOrdered By: Michael Cerda on 06-25-2022 Leukocyte esterase Auto test strip Ql (U) 4+ Negative [facility] Urobilinogen Auto test strip (U) [Mass/Vol]Ordered By: Michael Cerda on 06-25-2022 Urobilinogen (U) [Mass/Vol] Normal mg/dL Normal [facility] WBC Auto (Bld) [#/Vol]Ordere d By: CIERA CARABALLO on 06-25-2022 WBC (Bld) [#/Vol] 10.5 10*3/uL 3.8-11.6 [facility] Yeast detection in urine sed iment by light microscopyOrdered By: Michael Cerda on 06-25-2022 Yeast LM Ql (Urine sed) None seen [HPF] None Seen [facility] pH Auto test strip (U)Ordere d By: Michael Cerda on 06-25-2022 pH (U) 6.0 [pH] 5.0-9.0 [facility] GLUCOSE BLOODon 04-28-2022 Glucose [Mass/Vol] 83 mg/dL Normal 74-106 [facility] Comment on above: Performed By: #### G MINERVA, LIPID #### [facility] [address] [address] [address] Kinjal Rivers LIPID PROFILEon 04-28-2022 CHOL-HDL RATIO NORM SEE BELOW Normal [facility] Comment on above: Result Comment: 3.3 - 4.4 LOW RISK 4.4 - 7.1 AVERAGE RISK 7.1 - 11.0 MODERATE RISK >11.0 HIGH RISK Performed By: #### G MINERVA, LIPID #### [facility] [address] [place] [address] Dr. Kinjal Rivers Cholesterol [Mass/Vol] 232 mg/dL Critically high <=200 [facility] Comment on above: Performed By: #### G MINERVA, LIPID #### [facility] [address] [place] [address] Dr. Kinjal Rivers Cholesterol in HDL [Mass/Vol] 92 mg/dL Critically high 40-60 [facility] Comment on above: Performed By: #### G MINERVA, LIPID #### [facility] [address] [address] [address] Kinjal Rivers Cholesterol in LDL [Mass/Vol] 115.2 mg/dL Normal [facility] Comment on above: Performed By: #### G MINERVA, LIPID #### [facility] [address] [address] [address] Kinjal Rivers Cholesterol.total/Chol esterol in HDL [Mass ratio] 2.5 {ratio} Normal [facility] Comment on above: Performed By: #### G MINERVA, LIPID #### [facility] [address] [address] [address] Kinjal Rivers HDL NORMAL > or = 60 mg/dl - LO W CARDIOVASCULAR RISK <40 mg/dl - HIGH CARDIOVASCULAR RISK Normal [facility] Comment on above: Performed By: #### G MINERVA, LIPID #### [facility] [address] [address] [address] Kinjal Rivers LDL CALC NORMAL SEE BELOW Normal [facility] Comment on above: Result Comment: <100 mg/dl OPTIMAL 100 - 129 mg/dl NEAR OR ABOVE OPTIMAL 130 - 159 mg/dl BORDERLINE HIGH 160 - 189 mg/dl HIGH >190 mg/dl VERY HIGH Performed By: #### G MINERVA, LIPID #### [facility] [address] [address] [address] Kinjal Rivers Triglyceride [Mass/Vol] 124 mg/dL Normal <=150 [facility] Comment on above: Performed By: #### G MINERVA, LIPID #### [facility] [address] [address] [address] Kinjal Rivers VLDL CALC 24.8 mg/dL Normal [facility] Comment on above: Performed By: #### G MINERVA, LIPID #### [facility] [address] [address] [address] Kinjal Rivers Echocardiogramon 02-13-[address], [address] [place] [address] TRANSTHORACIC ECHOCARDIOGRAM REPORT Patient Name: MARICARMEN Monreal Physician: [id number] Tracee ANDERSON MD Study Date: 02/13/2022 Referring [id number] RITA OLIVIA Physician: MRN/PID: [id number] PCP: Viktor Sotelo Accession/Order#: [id number] Department [facility] Location: Date of : 1980 Fellow: Gender: F Nurse: Admit Date: Exercise Physiologist Certified: Georgia Grajeda RDCS, T Height: 167.64 cm CC Report to: Weight: 102.97 kg Study Type: Echocardiogram BSA: 2.11 m2 Blood Pressure: 114 /70 mmHg Diagnosis/ICD: I47.1-Supraventricular tachycardia; R06.02-Shortness of breath; I49.5-Sick sinus syndrome Indication: Abnormal EKG-Complete Heart Block, Pacemaker, History of Syncope, Obesity, Seizure Disorder, Pt is 13 weeks Procedure/CPT: Echo Complete w Full [id number] Study Detail: The following Echo studies were [...] 0.8 m/s (0.6-0.9m/s) PV Max P.9 mmHg [id number] Tracee Moore MD Electronically signed on 02/13/2022 at 5:36:08 PM Final Normal [facility] Echocardiography Please click on the link to view the study images Normal [facility] [address] [place] Work Phone: Falls Screening (Age 18+)on 02-13-2022 Fall risk assessment a) No falls within the last year [facility] [place] [address] [place] Work Phone: Urine culture routineOrdered By: Raymond Oconnor on 01-22-2022 Bacteria identified Cx Nom (U) 2 Days [facility] Albumin [Mass/volume] in Ser um or PlasmaOrdered By: Raymond Oconnor on 01-20-2022 Albumin [Mass/Vol] 3.4 g/dL 3.2-5.5 [facility] Automated erythrocytes count in urine sediment (number/area)Ordered By: Raymond Oconnor on 01-20-2022 RBC Auto (Urine sed) [#/Area] 3-4 [HPF] 0-4 [facility] Automated leukocytes count i n urine sediment (number/area)Ordered By: Raymond Oconnor on 01-20-2022 WBC Auto (Urine sed) [#/Area] 20-49 [HPF] 0-4 [facility] Automated urine sediment claudia cium oxalate crystal count by microscopy (number/high powOrdered By: Raymond Oconnor on 01-20-2022 Calcium oxalate crystals LM.HPF (Urine sed) [#/Area] 4+ [HPF] [facility] Basophils Auto (Bld) [#/Vol] Ordered By: Raymond Oconnor on 01-20-2022 Basophils (Bld) [#/Vol] 0.0 10*3/uL 0.0-0.2 [facility] Basophils/100 WBC Auto (Bld) Ordered By: Raymond Oconnor on 01-20-2022 Basophils/100 WBC (Bld) 0.4 % . [facility] Bilirubin Auto test strip Ql (U)Ordered By: Raymond Oconnor on 01-20-2022 Bilirubin Ql (U) Negative Negative [facility] Blood hemoglobin measurement (mass/volume)Ordered By: Raymond Oconnor on 01-20-2022 Hemoglobin (Bld) [Mass/Vol] 10.6 g/dL 11.8-15.4 [facility] Blood leukocytes automated c ount (number/volume)Ordered By: Raymond Oconnor on 01-20-2022 WBC (Bld) [#/Vol] 6.8 10*3/uL 4.5-11.0 [facility] Creatinine and Glomerular fi ltration rate.predicted panel (S/P/Bld)Ordered By: Raymond Oconnor on 01-20-2022 Creatinine [Mass/Vol] 0.62 mg/dL 0.44-1.03 [facility] Eosinophils Auto (Bld) [#/Vo l]Ordered By: Raymond Oconnor on 01-20-2022 Eosinophils (Bld) [#/Vol] 0.1 10*3/uL 0.0-0.45 [facility] Eosinophils/100 WBC Auto (Bl d)Ordered By: Raymond Oconnor on 01-20-2022 Eosinophils/100 WBC (Bld) 1.5 % . [facility] Erythrocyte distribution wid th Auto (RBC) [Ratio]Ordered By: Raymond Oconnor on 01-20-2022 Erythrocyte distribution width (RBC) [Ratio] 18.2 % 11.9-15.3 [facility] Estimated glomerular filtrat ion rate (GFR) non- AmericanOrdered By: Raymond Oconnor on 01-20-2022 GFR/1.73 sq M.predicted among non-blacks MDRD (S/P/Bld) [Vol rate/Area] > 60 mL/Min [facility] Globulin Calc (S) [Mass/Vol] Ordered By: Raymond Oconnor on 01-20-2022 Globulin (S) [Mass/Vol] 3.1 g/dL [facility] Hematocrit Auto (Bld) [Volum e fraction]Ordered By: Raymond Oconnor on 01-20-2022 Hematocrit (Bld) [Volume fraction] 33.6 % 34.0-46.4 [facility] Ketones Auto test strip (U) [Mass/Vol]Ordered By: Raymond Oconnor on 01-20-2022 Ketones (U) [Mass/Vol] Negative Negative [facility] - Hematology and Cell countsOrdered By: Raymond Oconnor on 01-20-2022 Nucleated RBC/100 WBC (Bld) [Ratio] 0.0 % 0-0.5 [facility] - UrinalysisOrder ed By: Raymond Oconnor on 01-20-2022 Hyaline casts LM Ql (Urine sed) 0-8 [LPF] 0-8 [facility] Lymphocytes Auto (Bld) [#/Vo l]Ordered By: Raymond Oconnor on 01-20-2022 Lymphocytes (Bld) [#/Vol] 1.3 10*3/uL 1.00-4.8 [facility] Lymphocytes/100 WBC Auto (Bl d)Ordered By: Raymond Oconnor on 01-20-2022 Lymphocytes/100 WBC (Bld) 19.1 % . [facility] MCH Auto (RBC) [Entitic mass ]Ordered By: Raymond Oconnor on 01-20-2022 MCH (RBC) [Entitic mass] 26.9 pg 24.7-34.3 [facility] MCHC Auto (RBC) [Mass/Vol]Or dered By: Raymond Oconnor on 01-20-2022 MCHC (RBC) [Mass/Vol] 31.7 g/dL 32.0-35.0 [facility] MCV Auto (RBC) [Entitic vol] Ordered By: Raymond Oconnor on 01-20-2022 MCV (RBC) [Entitic vol] 84.8 fL 80-100 [facility] Monocytes Auto (Bld) [#/Vol] Ordered By: Raymond Oconnor on 01-20-2022 Monocytes (Bld) [#/Vol] 0.4 10*3/uL 0.0-0.8 [facility] Monocytes/100 WBC Auto (Bld) Ordered By: Raymond Oconnor on 01-20-2022 Monocytes/100 WBC (Bld) 6.6 % . [facility] Neutrophils Auto (Bld) [#/Vo l]Ordered By: Raymond Oconnor on 01-20-2022 Neutrophils (Bld) [#/Vol] 4.9 10*3/uL 1.8-7.7 [facility] Neutrophils/100 WBC Auto (Bl d)Ordered By: Raymond Oconnor on 01-20-2022 Neutrophils/100 WBC (Bld) 72.4 % . [facility] No Panel InformationOrdered By: Raymond Oconnor on 01-20-2022 Estimated GFR () > 60 mL/Min [facility] Comment on above: GFR estimated refere nce range: According to KDOQI guidelines, <60 ml/min/1.73m2 is sufficient to diagnose a patient with chronic kidney disease. Pharmacy Creatinine Clearance (Chem 147.20 [facility] Platelet mean volume Auto (B ld) [Entitic vol]Ordered By: Raymond Oconnor on 01-20-2022 Platelet mean volume (Bld) [Entitic vol] 8.1 fL 6.3-10.7 [facility] Platelets Auto (Bld) [#/Vol] Ordered By: Raymond Oconnor on 01-20-2022 Platelets (Bld) [#/Vol] 214 10*3/uL 150-450 [facility] Protein Auto test strip (U) [Mass/Vol]Ordered By: Raymond Oconnor on 01-20-2022 Protein (U) [Mass/Vol] Negative Negative [facility] Protein [Mass/volume] in Ser um or PlasmaOrdered By: Raymond Oconnor on 01-20-2022 Protein [Mass/Vol] 6.5 g/dL 6.1-7.9 [facility] RBC Auto (Bld) [#/Vol]Ordere d By: Raymond Oconnor on 01-20-2022 RBC (Bld) [#/Vol] 3.95 10*6/uL 3.60-5.00 [facility] Serum or plasma alanine cox otransferase measurement without P-5'-P (enzymatic activiOrdered By: Raymond Oconnor on 01-20-2022 ALT No additional P-5'-P [Catalytic activity/Vol] 10 U/L 10-60 [facility] Serum or plasma albumin/glob ulin mass ratioOrdered By: Raymond Oconnor on 01-20-2022 Albumin/Globulin [Mass ratio] 1.1 {ratio} [facility] Serum or plasma alkaline sam sphatase measurement (enzymatic activity/volume)Ordered By: Raymond Oconnor on 01-20-2022 ALP [Catalytic activity/Vol] 51 U/L 32-92 [facility] Serum or plasma aspartate am inotransferase measurement (enzymatic activity/volume)Ordered By: Raymond Oconnor on 01-20-2022 AST [Catalytic activity/Vol] 16 U/L 10-42 [facility] Serum or plasma calcium katie urement (mass/volume)Ordered By: Raymond Oconnor on 01-20-2022 Calcium [Mass/Vol] 9.4 mg/dL 8.2-10.2 [facility] Serum or plasma chloride victorino surement (moles/volume)Ordered By: Raymond Oconnor on 01-20-2022 Chloride [Moles/Vol] 103 mmol/L 95-114 [facility] Serum or plasma glucose katie urement (mass/volume)Ordered By: Raymond Oconnor on 01-20-2022 Glucose [Mass/Vol] 82 mg/dL 70-100 [facility] Comment on above: ADA recommended refe rence range Random Glucose Reference Range is dependent on time and content of last meal. Glucose of more than 200 mg/dL in a nonstressed, ambulatory subject supports the diagnosis of Diabetes Mellitus. Serum or plasma potassium me asurement (moles/volume)Ordered By: Raymond Oconnor on 01-20-2022 Potassium [Moles/Vol] 4.0 mmol/L 3.5-5.1 [facility] Serum or plasma sodium measu rement (moles/volume)Ordered By: Raymond Oconnor on 01-20-2022 Sodium [Moles/Vol] 134 mmol/L 136-146 [facility] Serum or plasma total biliru bin measurement (mass/volume)Ordered By: Raymond Oconnor on 01-20-2022 Bilirubin [Mass/Vol] 0.7 mg/dL 0.3-1.2 [facility] Serum or plasma total carbon dioxide measurement (moles/volume)Ordered By: Raymond Oconnor on 01-20-2022 CO2 [Moles/Vol] 19.6 mmol/L 22.0-30.0 [facility] Serum or plasma urea nitroge n measurement (mass/volume)Ordered By: Raymond Oconnor on 01-20-2022 Urea nitrogen [Mass/Vol] 8 mg/dL 9-23 [facility] Squamous epithelial cells de tection in urine sediment by light microscopyOrdered By: Raymond Oconnor on 01-20-2022 Epithelial cells.squamous LM Ql (Urine sed) 0-1 [HPF] 0-2 [facility] Urine appearanceOrdered By: Raymond Oconnor on 01-20-2022 Appearance (U) Clear Clear [facility] Urine bacteria detection by automated methodOrdered By: Raymond Oconnor on 01-20-2022 Bacteria Auto Ql (U) None seen None Seen [facility] Urine colorOrdered By: Chela Oconnor on 01-20-2022 Color (U) Yellow Yellow [facility] Urine glucose measurement by automated test strip (mass/volume)Ordered By: Raymond Oconnor on 01-20-2022 Glucose Auto test strip (U) [Mass/Vol] Normal mg/dL Normal [facility] Urine hemoglobin detection b y automated test stripOrdered By: Raymond Oconnor on 01-20-2022 Hemoglobin Auto test strip Ql (U) Negative Negative [facility] Urine leukocyte esterase det ection by automated test stripOrdered By: Raymond Oconnor on 01-20-2022 Leukocyte esterase Auto test strip Ql (U) 2+ Negative [facility] Urine nitrite detection by a utomated test stripOrdered By: Raymond Oconnor on 01-20-2022 Nitrite Auto test strip Ql (U) Negative Negative [facility] Urine sediment crystal ident ification by light microscopyOrdered By: Raymond Oconnor on 01-20-2022 Crystals LM Nom (Urine sed) None seen [HPF] [facility] Urobilinogen Auto test strip (U) [Mass/Vol]Ordered By: Raymond Oconnor on 01-20-2022 Urobilinogen (U) [Mass/Vol] Normal mg/dL Normal [facility] pH Auto test strip (U)Ordere d By: Raymond Oconnor on 01-20-2022 pH (U) 1.030 [pH] 1.001-1.030 [facility] pH (U) 6.0 [pH] 5.0-9.0 [facility] Tobacco Screening.on 022 Fall risk assessment a) No falls within the last year -[facility] [employer] DO Work Phone: Tobacco use status CP b) No [facility] [employer] DO Work Phone: Tobacco Screening. Yes [facility] [employer] DO Work Phone: Serum or plasma beta choriog onadotropin measurement (units/volume)Ordered By: Eduardo Swain on 12-16-2021 HCG.beta subunit Qn 3876.00 m[IU]/mL [facility] Comment on above: Approximate Approxim ate hCG Gestational Age Range (mIU/ml) (weeks) 0.2-1 5-50 1-2 50-500 2-3 100-5,000 3-4 500-10,000 4-5 1,000-50,000 5-6 10,000-100,000 6-8 15,000-200,000 8-12 10,000-100,000 Cholesterol [Mass/volume] in Serum or PlasmaOrdered By: Eduardo Swain on 12-11-2021 Cholesterol [Mass/Vol] 190 mg/dL 140-200 [facility] Comment on above: Chol less than 200 m g/dl low risk Chol 201-239 mg/dl borderline risk Chol 240 mg/dl and greater high risk Cholesterol in LDL Calc [Mas s/Vol]Ordered By: Eduardo Swain on 12-11-2021 Cholesterol in LDL [Mass/Vol] 103 mg/dL 0-100 [facility] Comment on above: LDL ATP III CLASSIFI CATION LDL less than 100 mg/dL Optimal LDL 100-129 mg/dL Near or above optimal LDL 130-159 mg/dL Borderline high LDL 160-189 mg/dL High LDL greater than 189 mg/dL Very high Cholesterol in VLDL Calc [Ma ss/Vol]Ordered By: Eduardo Swain on 12-11-2021 Cholesterol in VLDL [Mass/Vol] 9 mg/dL [facility] No Panel InformationOrdered By: Eduardo Swain on 12-11-2021 25-Hydroxy Vitamin D Total 40.6 ng/mL 30-100 [facility] Comment on above: VITAMIN D STATUS [...] Cholesterol in HDL [Mass/Vol] 78 mg/dL 35-85 [facility] Comment on above: HDL CHOL ATP-III CLA SSIFICATION Cardiovascular Risk HDL > or equal to 60 mg/dL LOW HDL < 40 mg/dL HIGH Serum or plasma total choles terol/high density lipoprotein (HDL) cholesterol mass ratOrdered By: Eduardo Swain on 12-11-2021 Cholesterol.total/Chol esterol in HDL [Mass ratio] 2.4 {ratio} <5.0 [facility] TSH DL <= 0.005 mIU/L QnOrde red By: Eduardo Swain on 12-11-2021 TSH Qn 2.40 m[IU]/L 0.45-5.33 [facility] Triglyceride [Mass/volume] i n Serum or PlasmaOrdered By: Eduardo Swain on 12-11-2021 Triglyceride [Mass/Vol] 47 mg/dL 35-149 [facility] Comment on above: TRIG ATP III CLASSIF ICATION TRIG less than 150 mg/dL Normal TRIG 150-199 mg/dL Borderline high TRIG 200-500 mg/dL High TRIG greater than 500 mg/dL Very high Standard traceable to the Center for Disease Conrtrol and Prevention (CDC) test method. Serum or plasma beta choriog onadotropin measurement (units/volume)Ordered By: Eduardo Swain on 12-10-2021 HCG.beta subunit Qn 315.21 m[IU]/mL [facility] Comment on above: Approximate Approxim ate hCG Gestational Age Range (mIU/ml) (weeks) 0.2-1 5-50 1-2 50-500 2-3 100-5,000 3-4 500-10,000 4-5 1,000-50,000 5-6 10,000-100,000 6-8 15,000-200,000 8-12 10,000-100,000 Urine culture routineOrdered By: Cornell Mcnair on 12-10-2021 Bacteria identified Cx Nom (U) Strep. agalactiae Grp B [facility] Amphetamine Screen Ql (U)Ord ered By: Cornell Mcnair on 12-08-2021 Amphetamines Ql (U) Negative Negative [facility] Automated erythrocytes count in urine sediment (number/area)Ordered By: Cornell Mcnair on 12-08-2021 RBC Auto (Urine sed) [#/Area] 10-19 [HPF] 0-4 [facility] Automated leukocytes count i n urine sediment (number/area)Ordered By: Cornell Mcnair on 12-08-2021 WBC Auto (Urine sed) [#/Area] 50-100 [HPF] 0-4 [facility] Automated urine hyaline cast s count (number/volume)Ordered By: Cornell Mcnair on 12-08-2021 Hyaline casts Auto (U) [#/Vol] 0-1 [LPF] 0-1 [facility] Automated urine sediment claudia cium oxalate crystal count by microscopy (number/high powOrdered By: Cornell Mcnair on 12-08-2021 Calcium oxalate crystals LM.HPF (Urine sed) [#/Area] 3+ [HPF] [facility] Barbiturates [Presence] in U rineOrdered By: Cornell Mcnair on 12-08-2021 Barbiturates Ql (U) Negative Negative [facility] Basophils Auto (Bld) [#/Vol] Ordered By: Cornell Mcnair on 12-08-2021 Basophils (Bld) [#/Vol] 0.0 10*3/uL 0.0-0.2 [facility] Basophils/100 WBC Auto (Bld) Ordered By: Cornell Mcnair on 12-08-2021 Basophils/100 WBC (Bld) 0.6 % . [facility] Benzodiazepines [Presence] i n UrineOrdered By: Cornell Mcnair on 12-08-2021 Benzodiazepines Ql (U) Negative Negative [facility] Bilirubin Test strip Ql (U)O rdered By: Cornell Mcnair on 12-08-2021 Bilirubin Ql (U) Negative Negative [facility] Blood hemoglobin measurement (mass/volume)Ordered By: Cornell Mcnair on 12-08-2021 Hemoglobin (Bld) [Mass/Vol] 9.6 g/dL 11.8-15.4 [facility] Blood leukocytes automated c ount (number/volume)Ordered By: Cornell Mcnair on 12-08-2021 WBC (Bld) [#/Vol] 6.9 10*3/uL 4.5-11.0 [facility] Body fluid albumin measureme nt (mass/volume)Ordered By: Cornell Mcnair on 12-08-2021 Albumin (Body fld) [Mass/Vol] 3.4 g/dL 3.2-5.5 [facility] COVID-19 SOFIAOrdered By: Julia Mcnair on 12-08-2021 SARS-CoV+SARS-CoV-2 (COVID-19) Ag IA.rapid Ql (Resp) Negative Negative [facility] Comment on above: This is a duplicate [place] SARS Antigen (DIEUDONNE) result to be used for statistical tracking purpose only. Cannabinoids [Presence] in U rine by Screen methodOrdered By: Cornell Mcnair on 12-08-2021 Cannabinoids Screen Ql (U) Negative Negative [facility] Comment on above: These are unconfirme [...] (Urine sed) None seen [LPF] None Seen [facility] Color Auto (U)Ordered By: Julia Mcnair on 12-08-2021 Color (U) Yellow Yellow [facility] Creatinine and Glomerular fi ltration rate.predicted panel (S/P/Bld)Ordered By: Cornell Mcnair on 12-08-2021 Creatinine [Mass/Vol] 0.78 mg/dL 0.44-1.03 [facility] Eosinophils Auto (Bld) [#/Vo l]Ordered By: Cornell Mcnair on 12-08-2021 Eosinophils (Bld) [#/Vol] 0.2 10*3/uL 0.0-0.45 [facility] Eosinophils/100 WBC Auto (Bl d)Ordered By: Cornell Mcnair on 12-08-2021 Eosinophils/100 WBC (Bld) 2.6 % . [facility] Erythrocyte distribution wid th Auto (RBC) [Ratio]Ordered By: Cornell Mcnair on 12-08-2021 Erythrocyte distribution width (RBC) [Ratio] 15.5 % 11.9-15.3 [facility] Estimated glomerular filtrat ion rate (GFR) non- AmericanOrdered By: Cornell Mcnair on 12-08-2021 GFR/1.73 sq M.predicted among non-blacks MDRD (S/P/Bld) [Vol rate/Area] > 60 mL/Min [facility] Globulin Calc (S) [Mass/Vol] Ordered By: Cornell Mcnair on 12-08-2021 Globulin (S) [Mass/Vol] 3.1 g/dL [facility] HCG ( test) IA.rapi d Ql (U)Ordered By: Cornell Mcnair on 12-08-2021 HCG ( test) Ql (U) Positive [facility] Hematocrit Auto (Bld) [Volum e fraction]Ordered By: Cornell Mcnair on 12-08-2021 Hematocrit (Bld) [Volume fraction] 30.1 % 34.0-46.4 [facility] Ketones Auto test strip (U) [Mass/Vol]Ordered By: Cornell Mcnair on 12-08-2021 Ketones (U) [Mass/Vol] Trace Negative [facility] Laboratory - Drug toxicology Ordered By: Cornell Mcnair on 12-08-2021 Opiates Ql (U) Negative Negative [facility] Laboratory - Hematology and Cell countsOrdered By: Cornell Mcnair on 12-08-2021 Nucleated RBC/100 WBC (Bld) [Ratio] 0.0 % 0-0.5 [facility] Lymphocytes Auto (Bld) [#/Vo l]Ordered By: Cornell Mcnair on 12-08-2021 Lymphocytes (Bld) [#/Vol] 1.5 10*3/uL 1.00-4.8 [facility] Lymphocytes/100 WBC Auto (Bl d)Ordered By: Cornell Mcnair on 12-08-2021 Lymphocytes/100 WBC (Bld) 22.3 % . [facility] MCH Auto (RBC) [Entitic mass ]Ordered By: Cornell Mcnair on 12-08-2021 MCH (RBC) [Entitic mass] 26.3 pg 24.7-34.3 [facility] MCHC Auto (RBC) [Mass/Vol]Or dered By: Cornell Mcnair on 12-08-2021 MCHC (RBC) [Mass/Vol] 32.0 g/dL 32.0-35.0 [facility] MCV Auto (RBC) [Entitic vol] Ordered By: Cornell Mcnair on 12-08-2021 MCV (RBC) [Entitic vol] 82.4 fL 80-100 [facility] Monocytes Auto (Bld) [#/Vol] Ordered By: Cornell Mcnair on 12-08-2021 Monocytes (Bld) [#/Vol] 0.4 10*3/uL 0.0-0.8 [facility] Monocytes/100 WBC Auto (Bld) Ordered By: Cornell Mcnair on 12-08-2021 Monocytes/100 WBC (Bld) 6.5 % . [facility] Mucus LM Ql (Urine sed)Order ed By: Cornell Mcnair on 12-08-2021 Mucus Ql (Urine sed) 2+ [LPF] [facility] Neutrophils Auto (Bld) [#/Vo l]Ordered By: Cornell Mcnair on 12-08-2021 Neutrophils (Bld) [#/Vol] 4.7 10*3/uL 1.8-7.7 [facility] Neutrophils/100 WBC Auto (Bl d)Ordered By: Cornell Mcnair on 12-08-2021 Neutrophils/100 WBC (Bld) 68.0 % . [facility] Nitrite Test strip Ql (U)Ord ered By: Cornell Mcnair on 12-08-2021 Nitrite Ql (U) Negative Negative [facility] No Panel InformationOrdered By: Cornell Mcnair on 12-08-2021 Estimated GFR () > 60 mL/Min [facility] Comment on above: GFR estimated refere nce range: According to KDOQI guidelines, <60 ml/min/1.73m2 is sufficient to diagnose a patient with chronic kidney disease. Pharmacy Creatinine Clearance (Chem 115.38 [facility] SARS Antigen (LFIA) [facility] Phencyclidine Screen Ql (U)O rdered By: Cornell Mcnair on 12-08-2021 Phencyclidine Ql (U) Negative Negative [facility] Platelet mean volume Auto (B ld) [Entitic vol]Ordered By: Cornell Mcnair on 12-08-2021 Platelet mean volume (Bld) [Entitic vol] 7.2 fL 6.3-10.7 [facility] Platelets Auto (Bld) [#/Vol] Ordered By: Cornell Mcnair on 12-08-2021 Platelets (Bld) [#/Vol] 229 10*3/uL 150-450 [facility] Protein Auto test strip (U) [Mass/Vol]Ordered By: Cornell Mcnair on 12-08-2021 Protein (U) [Mass/Vol] Negative Negative [facility] Protein [Mass/volume] in Ser um or PlasmaOrdered By: Cornell Mcnair on 12-08-2021 Protein [Mass/Vol] 6.5 g/dL 6.1-7.9 [facility] RBC Auto (Bld) [#/Vol]Ordere d By: Cornell Mcnair on 12-08-2021 RBC (Bld) [#/Vol] 3.65 10*6/uL 3.60-5.00 [facility] Serum or plasma alanine cox otransferase measurement without P-5'-P (enzymatic activiOrdered By: Cornell Mcnair on 12-08-2021 ALT No additional P-5'-P [Catalytic activity/Vol] 11 U/L 10-60 [facility] Serum or plasma albumin/glob ulin mass ratioOrdered By: Cornell Mcnair on 12-08-2021 Albumin/Globulin [Mass ratio] 1.1 {ratio} [facility] Serum or plasma alkaline sam sphatase measurement (enzymatic activity/volume)Ordered By: Cornell Mcnair on 12-08-2021 ALP [Catalytic activity/Vol] 64 U/L 32-92 [facility] Serum or plasma aspartate am inotransferase measurement (enzymatic activity/volume)Ordered By: Cornell Mcnair on 12-08-2021 AST [Catalytic activity/Vol] 22 U/L 10-42 [facility] Serum or plasma calcium katie urement (mass/volume)Ordered By: Cornell Mcnair on 12-08-2021 Calcium [Mass/Vol] 8.9 mg/dL 8.2-10.2 [facility] Serum or plasma chloride victorino surement (moles/volume)Ordered By: Cornell Mcnair on 12-08-2021 Chloride [Moles/Vol] 106 mmol/L 95-114 [facility] Serum or plasma ethanol katie urement (mass/volume)Ordered By: Cornell Mcnair on 12-08-2021 Ethanol [Mass/Vol] mg/dL [facility] Ethanol [Mass/Vol] TNP [facility] Comment on above: Test not performed Serum or plasma glucose katie urement (mass/volume)Ordered By: Cornell Mcnair on 12-08-2021 Glucose [Mass/Vol] 86 mg/dL 70-100 [facility] Comment on above: ADA recommended refe rence range Random Glucose Reference Range is dependent on time and content of last meal. Glucose of more than 200 mg/dL in a nonstressed, ambulatory subject supports the diagnosis of Diabetes Mellitus. Serum or plasma potassium me asurement (moles/volume)Ordered By: Cornell Mcnair on 12-08-2021 Potassium [Moles/Vol] 3.9 mmol/L 3.5-5.1 [facility] Serum or plasma sodium measu rement (moles/volume)Ordered By: Cornell Mcnair on 12-08-2021 Sodium [Moles/Vol] 137 mmol/L 136-146 [facility] Serum or plasma total biliru bin measurement (mass/volume)Ordered By: Cornell Mcnair on 12-08-2021 Bilirubin [Mass/Vol] 0.4 mg/dL 0.3-1.2 [facility] Serum or plasma total carbon dioxide measurement (moles/volume)Ordered By: Cornell Mcnair on 12-08-2021 CO2 [Moles/Vol] 23.8 mmol/L 22.0-30.0 [facility] Serum or plasma urea nitroge n measurement (mass/volume)Ordered By: Cornell Mcnair on 12-08-2021 Urea nitrogen [Mass/Vol] 9 mg/dL 9-23 [facility] Specific gravity Auto test s trip (U) [Rel density]Ordered By: Cornell Mcnair on 12-08-2021 Specific gravity (U) [Rel density] 1.024 1.001-1.030 [facility] Squamous epithelial cells de tection in urine sediment by light microscopyOrdered By: Cornell Mcnair on 12-08-2021 Epithelial cells.squamous LM Ql (Urine sed) 10-19 [HPF] 0-2 [facility] Urine bacteria detection by automated methodOrdered By: Cornell Mcnair on 12-08-2021 Bacteria Auto Ql (U) None seen None Seen [facility] Urine clarity by refractomet ry automatedOrdered By: Cornell Mcnair on 12-08-2021 Clarity Refractometry automated (U) Cloudy Clear [facility] Urine cocaine detectionOrder ed By: Cornell Mcnair on 12-08-2021 Cocaine Ql (U) Negative Negative [facility] Urine glucose measurement by automated test strip (mass/volume)Ordered By: Cornell Mcnair on 12-08-2021 Glucose Auto test strip (U) [Mass/Vol] Normal mg/dL Normal [facility] Urine hemoglobin detection b y automated test stripOrdered By: Cornell Mcnair on 12-08-2021 Hemoglobin Auto test strip Ql (U) Negative Negative [facility] Urine leukocyte esterase det ection by automated test stripOrdered By: Cornell Mcnair on 12-08-2021 Leukocyte esterase Auto test strip Ql (U) 3+ Negative [facility] Urobilinogen Auto test strip (U) [Mass/Vol]Ordered By: Cornell Mcnair on 12-08-2021 Urobilinogen (U) [Mass/Vol] Normal mg/dL Normal [facility] Yeast detection in urine sed iment by light microscopyOrdered By: Cornell Mcnair on 12-08-2021 Yeast LM Ql (Urine sed) 1+ [HPF] None Seen [facility] pH Auto test strip (U)Ordere d By: Cornell Mcnair on 12-08-2021 pH (U) 5.0 [pH] 5.0-9.0 [facility] CNPNon 09-18-2021 CNPN Telephone ([facility]) ----- MARICARMEN ANDERSON ([id number]) 1980 F T Date Time Provider Department 09/18/21 CLEMENTE ENG [facility] During your visit today, we recorded the following information about you: Uyen Dela Cruz 09/18/2021 9:54 AM Signed patient calling in with complaint of abdominal pain, swelling abdomen, dehydration and vomiting. Patient has not seen you since October 2020. Patient has been identified by name and birthdate.Yes Duration of symptoms: few days Person calling: self Call patient at: at home [phone] (home) [phone] (cell) Was an appointment scheduled: No Closing statement: Symptom Call: Thank you for calling [facility], your call is very important. [...] She states she will go to a [facility] ER because local ER doesn't know [...] by KATHI WATERMAN RN on 09/18/21 Normal [facility] MRI CERVICAL SPINE WO IVCONo n [...] vertebrae with counting from the craniocervical junction. Human Resources Representative: PSCB Transcribe Date/Time: Nov 13 2020 2:41P Dictated by : KURT MALIN MD This examination was interpreted and the report reviewed and electronically signed by: DHRUV KINGSLEY MD on Nov 13 2020 3:33PM EST [id number] Normal [facility] MRI KIDNEY WO/W IVCONon 05-2 MRI [...] included: axial precontrast T1 weighted in- and bbl-hi-niiue, axial and coronal HASTE, axial DWI with [...] NO SUSPICIOUS OR ENHANCING RENAL LESIONS OTHERWISE. Human Resources Representative: LISA Transcribe Date/Time: Nov 13 2020 3:28P Dictated by : GAURAV RODRIGUEZ MD This examination was interpreted and the report reviewed and electronically signed by: NACHO BARONE DO on Nov 13 2020 7:26PM EST [id number] Normal [facility] XR CHEST 2V FRONTAL/LATon XR CHEST [...] disease identified in the lungs or mediastinum. Human Resources Representative: PSCBernard Transcribe Date/Time: Nov 13 2020 3:36P Dictated by : DESI MAHONEY MD This examination was interpreted and the report reviewed and electronically signed by: DESI MAHONEY MD on Nov 13 2020 3:38PM EST [id number] Normal [facility] Basic Metabolic Panlon 11-12 Anion gap [Moles/Vol] 9 mmol/L Normal 0-15 [facility] Calcium [Mass/Vol] 8.9 mg/dL Normal 8.5-10.2 [facility] Chloride [Moles/Vol] 112 mmol/L High 97-105 [facility] CO2 [Moles/Vol] 19 mmol/L Low 22-30 [facility] Creatinine [Mass/Vol] 0.73 mg/dL Normal 0.58-0.96 [facility] eGFR- Amer. >60 Normal [facility] eGFR-All Other Races >60 Normal [facility] Comment on above: Result [...] GFR. Glucose [Mass/Vol] 89 mg/dL Normal 74-99 [facility] Potassium [Moles/Vol] 3.7 mmol/L Normal 3.7-5.1 [facility] Sodium [Moles/Vol] 140 mmol/L Normal 136-144 [facility] Urea nitrogen [Mass/Vol] 21 mg/dL Normal 7-21 [facility] Blood Cultureon 11-12-2020 Bacteria identified Cx Nom (Bld) Culture Result - No growth 5 days Normal [facility] Comment on above: Performed By: #### B LCUL ####[place] [id number] [place], [place] [phone] Bacteria identified Cx Nom (Bld) Sp. Request/Comment: - 42.85CC Culture Result - No growth 5 days Normal [facility] Comment on above: Performed By: #### B LCUL ####[facility] [place], [place] [phone] CBCon 11-12-2020 Absolute nRBC <0.01 Normal <0.01 [facility] Erythrocyte distribution width (RBC) [Ratio] 16.8 % High 11.5-15.0 [facility] Hematocrit (Bld) [Volume fraction] 28.9 % Low 36.0-46.0 [facility] Hemoglobin (Bld) [Mass/Vol] 8.5 g/dL Low 11.5-15.5 [facility] MCH 26.6 pG Normal 26.0-34.0 [facility] MCHC (RBC) [Mass/Vol] 29.4 g/dL Low 30.5-36.0 [facility] MCV (RBC) [Entitic vol] 90.6 fL Normal 80.0-100.0 [facility] Platelet mean volume (Bld) [Entitic vol] 11.6 fL Normal 9.0-12.7 [facility] Platelets (Bld) [#/Vol] 167 10*3/uL Normal 150-400 [facility] RBC (Bld) [#/Vol] 3.19 10*6/uL Low 3.90-5.20 [facility] WBC (Bld) [#/Vol] 3.88 10*3/uL Normal 3.70-11.00 [facility] CNDSon 11-12-2020 [facility] HNO ID: [id number] Author: Lucero Wheeler DO Service: General Surgery [...] fevers. 40 year old female presented to [facility] on 11/09/2020 with fevers and left [...] needed for Nausea/Vo (more content not included)... [facility] CONSULT PROGon 11-12-2020 CONSULT PROG HNO ID: [id number] Author: Awais Gonzalez MD Service: Infectious Disease [...] Chest 3 days SIGNATURE: Awais Gonzalez MD [facility] NURSING PROGon 11-12-2020 NURSING PROG HNO ID: [id number] Author: Wisam Carvajal RN Service: ? Author [...] This note was completed by: Wisam Carvajal [facility] SHAMEKA Panel 1on 11-11-2020 SHAMEKA by EIA 0.8 OD Ratio Normal [facility] Comment on above: Result Comment: OD R atio is interpreted as follows: Negative <1.0 Positive >=1.0 Performed By: #### P REALB, TRANSF #### [facility] [address] [place], [place] [phone] SHAMEKA by EIA, Qual Negative Normal Negative [facility] Comment on above: Performed By: #### P REALB, TRANSF #### [facility] [address] [place], [place] [phone] Basic Metabolic Panlon 11-11 Anion gap [Moles/Vol] 9 mmol/L Normal 0-15 [facility] Calcium [Mass/Vol] 9.2 mg/dL Normal 8.5-10.2 [facility] Chloride [Moles/Vol] 115 mmol/L High 97-105 [facility] CO2 [Moles/Vol] 19 mmol/L Low 22-30 [facility] Creatinine [Mass/Vol] 0.78 mg/dL Normal 0.58-0.96 [facility] eGFR- Amer. >60 Normal [facility] eGFR-All Other Races >60 Normal [facility] Comment on above: Result [...] GFR. Glucose [Mass/Vol] 89 mg/dL Normal 74-99 [facility] Potassium [Moles/Vol] 3.8 mmol/L Normal 3.7-5.1 [facility] Sodium [Moles/Vol] 143 mmol/L Normal 136-144 [facility] Urea nitrogen [Mass/Vol] 20 mg/dL Normal 7-21 [facility] Blood Cultureon 11-11-2020 Bacteria identified Cx Nom (Bld) Culture Result - No growth 5 days Normal [facility] Comment on above: Performed By: #### B LCUL ####[facility] [place], [place] [phone] C-Reactive Proteinon 021 CRP [Mass/Vol] mg/L Normal 0.1-0.89 [facility] Comment on above: Performed By: #### P REALB, TRANSF #### [facility] [address] [place], [place] [address] C3 Complementon 11-11-2020 C3 Complement 122 mg/dL Normal 86-166 [facility] Comment on above: Performed By: #### P REALB, TRANSF #### [place] [place], [place] [address] C4 Complementon 11-11-2020 C4 Complement 26 mg/dL Normal 13-46 [facility] Comment on above: Performed By: #### P REALB, TRANSF #### [place] [address] [place], [place] [address] CBCon 11-11-2020 Absolute nRBC <0.01 Normal <0.01 [facility] Erythrocyte distribution width (RBC) [Ratio] 16.6 % High 11.5-15.0 [facility] Hematocrit (Bld) [Volume fraction] 30.0 % Low 36.0-46.0 [facility] Hemoglobin (Bld) [Mass/Vol] 8.9 g/dL Low 11.5-15.5 [facility] MCH 26.5 pG Normal 26.0-34.0 [facility] MCHC (RBC) [Mass/Vol] 29.7 g/dL Low 30.5-36.0 [facility] MCV (RBC) [Entitic vol] 89.3 fL Normal 80.0-100.0 [facility] Platelet mean volume (Bld) [Entitic vol] 11.5 fL Normal 9.0-12.7 [facility] Platelets (Bld) [#/Vol] 155 10*3/uL Normal 150-400 [facility] RBC (Bld) [#/Vol] 3.36 10*6/uL Low 3.90-5.20 [facility] WBC (Bld) [#/Vol] 4.41 10*3/uL Normal 3.70-11.00 [facility] CONSULTon 11-11-2020 CONSULT HNO ID: [id number] Author: Christopher Gonzalez V, MD Service: Infectious [...] III, BMI 40-49.9 (morbid obesity) ([facility]) - Port-A-Cath in place patients right [...] PSYCH: No (more content not included)... Normal [facility] NURSING PROGon 11-11-2020 NURSING PROG HNO ID: [id number] Author: Anne-Marie Farley, BRANDIE Service: Nursing Author Type: Registered Nurse Type: [...] This note was completed by: Anne-Marie Farley [facility] NURSING PROG HNO ID: [id number] Author: Carolina Lowry RN Service: ? Author Type: Registered Nurse Type: Nursing Progress Note Filed: 11/11/2020 7:46 PM Note Text: Nursing Progress Note Patient Name: Maricarmen Anderson Patient Location: [facility] [place] Daily Note:Nursing assessment completed see NPR. No signs of distress. 1600 Spoke with the surgery doctor, ok to continue using medport. This note was completed by: Carolina Lowry [facility] ALLIED HEALTHon 11-10-2020 ALLIED HEALTH HNO ID: [id number] Author: RT Mary(Liz) Service: Radiology Author Type: Worship Pastor Type: Allied Health Filed: 11/09/2020 11:44 PM [...] Mary(R) November 09, 2020 11:44 PM Normal [facility] Basic Metabolic Panlon 11-10 Anion gap [Moles/Vol] 9 mmol/L Normal 0-15 [facility] Calcium [Mass/Vol] 8.9 mg/dL Normal 8.5-10.2 [facility] Chloride [Moles/Vol] 114 mmol/L High 97-105 [facility] CO2 [Moles/Vol] 20 mmol/L Low 22-30 [facility] Creatinine [Mass/Vol] 0.83 mg/dL Normal 0.58-0.96 [facility] eGFR- Amer. >60 Normal [facility] eGFR-All Other Races >60 Normal [facility] Comment on above: Result [...] GFR. Glucose [Mass/Vol] 93 mg/dL Normal 74-99 [facility] Potassium [Moles/Vol] 3.9 mmol/L Normal 3.7-5.1 [facility] Sodium [Moles/Vol] 143 mmol/L Normal 136-144 [facility] Urea nitrogen [Mass/Vol] 16 mg/dL Normal 7-21 [facility] CASE MGT INIT ASSESon 2020 [facility] MGT [facility]IT [facility] HNO ID: [id number] Author: Estela Avila RN Service: ? Author Type: Registered Nurse Type: Care Mgt Initial Assessment Filed: 11/10/2020 9:47 AM Note Text: CARE MANAGEMENT: ASSESSMENT AND DISCHARGE PLAN SERVICE DATE: November 10, 2020 SERVICE TIME: 0945 PRIMARY CARE PHYSICIAN: Viktor Sotelo MD ADMISSION STATUS: Observation Needs Prior to Discharge: Other: See Comment (Medical clearance) MEDICAL: MEDICARE A AND B Patient/[place] Stated Goals: To return home to life as it was Health Insurance: Medicare;Medicaid Health Issues Impacting Discharge Plan: None Last Discharge Date: 09/29/20 Is this Within the Past 30 days? Last discharge within 30 days: No Advance Directive: Current Advance Directive: None Certified Pharmacy Technician Attempted to Assist with AD Completion: Yes [...] None Has the Patient Been in a Retirement Facility in the Past 30 days?: No SOCIAL: Living Arrangements: Home Lives With: Son Financial Resources: Disabled Primary Contact: Extended Emergency Contact Information Primary Emergency Contact: Khalida Anaya Mobile Relation: Sister Secondary Emergency Contact: Lucero Chaves Mobile Relation: Mother Supportive Patient Contact:: Yes Contact Resources: Family Family Name/Phone: Sister Khalida Anaya/[phone] Caregiver AssessmentCaregiver is ready, willing and able [...] Completely I feel financially burdened by my [id number] expenses for my prescription medication:: 0 - Disagree Completely Risk Score: 0 Patient is categorized as: Low risk < 2 Are you interested in bedside delivery of your medications? No Is Patient Psychosocially Complex?: No ASSESSMENT AND PLAN: Medical Needs: Medical Needs: Two or more chronic diseases Psychosocial Needs: Psychosocial Needs: None FREEDOM OF CHOICE EXPLAINED: [place] of Choice Given: No Reason Not Given: [...] 10, 2020 TIME: 9:45 AM PAGER/CONTACT #: [phone] Normal [facility] CBCon 11-10-2020 Absolute nRBC <0.01 Normal <0.01 [facility] Erythrocyte distribution width (RBC) [Ratio] 16.6 % High 11.5-15.0 [facility] Hematocrit (Bld) [Volume fraction] 29.0 % Low 36.0-46.0 [facility] Hemoglobin (Bld) [Mass/Vol] 8.6 g/dL Low 11.5-15.5 [facility] MCH 26.5 pG Normal 26.0-34.0 [facility] MCHC (RBC) [Mass/Vol] 29.7 g/dL Low 30.5-36.0 [facility] MCV (RBC) [Entitic vol] 89.2 fL Normal 80.0-100.0 [facility] Platelet mean volume (Bld) [Entitic vol] 11.2 fL Normal 9.0-12.7 [facility] Platelets (Bld) [#/Vol] 165 10*3/uL Normal 150-400 [facility] RBC (Bld) [#/Vol] 3.25 10*6/uL Low 3.90-5.20 [facility] WBC (Bld) [#/Vol] 4.26 10*3/uL Normal 3.70-11.00 [facility] NURSING PROGon 11-10-2020 NURSING PROG HNO ID: [id number] Author: Carolina Lowry RN Service: ? Author Type: Registered Nurse Type: Nursing Progress Note Filed: 11/10/2020 9:53 AM Note Text: Nursing Progress Note Patient Name: Maricarmen Anderson Patient Location: [place]/ [place] Daily Note:Nursing assessment completed see NPR. No signs of distress. This note was completed by: Carolina Lowry [facility] NUTRITIONon 11-10-2020 NUTRITION HNO ID: [id number] Author: Luz Watson RD Service: Nutrition Therapy [...] Weight loss;Patient/family self-report;Nausea;Vomiti ng Estimated kilocalorie needs: 9549-3168 kcal/day Calorie Calculation Method: 15-20 kcals/kg Estimated protein needs (grams): 76-100 gm protein/day Grams protein determined by: 1.3 - 1.7 g/kg;[place] body weight Care Plan: Continue current diet [...] protein shake. She ate 1 serving of georgian toast this morning and had emesis following. [...] 2 Frequency 5. DINNER Supplement 3 LORAINE MOSES 1.0 VANILLA Supplement 3 Frequency 3. LUNCH [...] November 10, 2020 TIME: 12:50 PM PAGER: [phone] Normal [facility] Urinalysis with Microscopico n 11-10-2020 Bacteria 3+ /HPF Critically abnormal Negative [facility] Bilirubin, Urine Negative Normal Negative [facility] Cast SEE COMMENT Normal 0 [facility] [facility] Comment on above: Result Comment: 0 Clarity (U) Clear Normal Clear [facility] Color (U) Yellow Normal Yellow [facility] Crystals LM Nom (Urine sed) SEE COMMENT Critically abnormal Negative [facility] Comment on above: Result Comment: 2+ Calcium Oxalate Epithelial cells LM Ql (Urine sed) SEE COMMENT Critically abnormal Occasional [facility] Comment on above: Result Comment: 1+ Squamous Epithelial Cells Glucose Ql (U) Negative Normal Negative [facility] Hemoglobin/Blood,Ur Negative Normal Negative [facility] Ketones Ql (U) Trace Critically abnormal Negative [facility] Leukest 1+ Critically abnormal Negative [facility] Mucus Ql (Urine sed) 1+ Normal [facility] Nitrite Ql (U) Negative Normal Negative [facility] pH (U) 6.5 [pH] Normal 5.0-8.0 [facility] Protein, Urine Trace Critically abnormal Negative [facility] RBC 3-5 Critically abnormal 0-3 [facility] Specific [place], Ur 1.025 Normal 1.005-1.030 [facility] Urobilinogen Qn (U) 1.0 {José'U}/dL Normal 0.2-1.0 [facility] WBC 26-50 Critically abnormal 0-5 [facility] XR LUMBAR 2V AP/LATon [...] 2V AP/LAT HISTORY: mid back pain (accession [id number]), back pain (accession [id number]) Mid-back/T-spine pain, initial exam. TECHNIQUE: XR THORACIC [...] on Nov 10 2020 7:09AM EST [id number] [facility] XR THORACIC 2V AP/LATon 10-21 XR THORACIC 2V AP/LAT * * *Final Report* * * DATE OF EXAM: Nov 09 2020 11:44PM SPX 5262 - XR THORACIC 2V AP/LAT / PROCEDURE REASON: Mid-back/T-spine pain, initial exam * * * * Physician Interpretation * * * * RESULT: EXAMINATION: XR THORACIC 2V AP/LAT, XR LUMBAR 2V AP/LAT HISTORY: mid back pain (accession [id number]), back pain (accession [id number]) Mid-back/T-spine pain, initial exam. TECHNIQUE: XR THORACIC [...] Nov 10 2020 7:09AM EST [id number] [facility] ALLIED HEALTHon 11-09-2020 ALLIED HEALTH HNO ID: [id number] Author: Uzair Monroy Service: Radiology Author Type: Worship Pastor Type: Allied Health Filed: 11/09/2020 7:56 AM [...] Monroy November 09, 2020 7:55 AM [facility] ALLIED HEALTH HNO ID: [id number] Author: Uzair Monroy Service: Radiology Author Type: Worship Pastor Type: Allied Health Filed: 11/09/2020 7:51 AM [...] Uzair Monroy November 09, 2020 7:51 AM [facility] Blood Cultureon 11-09-2020 Bacteria identified Cx Nom (Bld) Culture Result - No growth 5 days [facility] Comment on above: Performed By: #### B LCUL ####[facility] [place], [place] [phone] Bacteria identified Cx Nom (Bld) Additional Testing [...] and read back by: Nika Gore RN [facility] --> ABNORMAL ALERT [address] Surg 11/11/20 0122 Chuckie Sharpe --> [...] and read back by: BRANDIE QUINN from [facility] on --> [facility]NORMAL [facility] --> ABNORMAL ALERT Critically abnormal [facility] Comment on above: Performed By: #### B LCUL ####[facility] [address] [place], [place] [phone] CBC and Differentialon 11-09 Abs Baso <0.03 Normal <0.11 [facility] Abs [place] 0.29 k/uL Normal <0.87 [facility] Abs Neut 3.25 k/uL Normal 1.45-7.50 [facility] Absolute nRBC <0.01 Normal <0.01 [facility] Basophils/100 WBC (Bld) 0.4 % Normal [facility] DTYPE Auto Diff Normal [facility] Eosinophils (Bld) [#/Vol] 0.04 10*3/uL Normal <0.46 [facility] Eosinophils/100 WBC (Bld) 0.8 % Normal [facility] Erythrocyte distribution width (RBC) [Ratio] 16.3 % High 11.5-15.0 [facility] Hematocrit (Bld) [Volume fraction] 31.9 % Low 36.0-46.0 [facility] Hemoglobin (Bld) [Mass/Vol] 9.6 g/dL Low 11.5-15.5 [facility] Lymphocytes (Bld) [#/Vol] 1.33 10*3/uL Normal 1.00-4.00 [facility] Lymphocytes/100 WBC (Bld) 26.9 % Normal [facility] MCH 26.0 pG Normal 26.0-34.0 [facility] MCHC (RBC) [Mass/Vol] 30.1 g/dL Low 30.5-36.0 [facility] MCV (RBC) [Entitic vol] 86.4 fL Normal 80.0-100.0 [facility] Monocytes/100 WBC (Bld) 5.9 % Normal [facility] Neutrophils/100 WBC (Bld) 66.0 % Normal [facility] NRBCs 0.0 /100 WBC Normal 0 [facility] Platelet mean volume (Bld) [Entitic vol] 11.0 fL Normal 9.0-12.7 [facility] Platelets (Bld) [#/Vol] 173 10*3/uL Normal 150-400 [facility] RBC (Bld) [#/Vol] 3.69 10*6/uL Low 3.90-5.20 [facility] WBC (Bld) [#/Vol] 4.95 10*3/uL Normal 3.70-11.00 [facility] CTA ABD/PELV W IVCONon 11-09 CTA ABD/PELV W IVCON * * *Final Report* * * DATE OF EXAM: Nov 09 2020 10:53AM [facility] 0311 - CTA ABD/PELV W IVCON / [...] Nov 09 2020 10:53AM EST [id number] Normal [facility] CTA CHEST (NONGATED) W IVCON on [...] Nov 09 2020 10:53AM EST [id number] Normal [facility] Comp Metabolic Panelon 11-09 Albumin [Mass/Vol] 3.9 g/dL Normal 3.5-5.0 [facility] ALP [Catalytic activity/Vol] 56 U/L Normal 34-123 [facility] ALT [Catalytic activity/Vol] 9 U/L Normal 7-38 [facility] Anion gap [Moles/Vol] 9 mmol/L Normal 0-15 [facility] AST [Catalytic activity/Vol] 16 U/L Normal 13-35 [facility] Bilirubin [Mass/Vol] 0.5 mg/dL Normal 0.2-1.3 [facility] Calcium [Mass/Vol] 9.4 mg/dL Normal 8.5-10.2 [facility] Chloride [Moles/Vol] 110 mmol/L High 97-105 [facility] CO2 [Moles/Vol] 21 mmol/L Low 22-30 [facility] Creatinine [Mass/Vol] 0.75 mg/dL Normal 0.58-0.96 [facility] eGFR- Amer. >60 Normal [facility] eGFR-All Other Races >60 Normal [facility] Comment on above: Result [...] GFR. Glucose [Mass/Vol] 91 mg/dL Normal 74-99 [facility] Potassium [Moles/Vol] 3.6 mmol/L Low 3.7-5.1 [facility] Protein [Mass/Vol] 6.6 g/dL Normal 6.3-8.0 [facility] Sodium [Moles/Vol] 140 mmol/L Normal 136-144 [facility] Urea nitrogen [Mass/Vol] 17 mg/dL Normal 7-21 [facility] D dimeron 11-09-2020 D dimer 770 ng/mL FEU High <500 [facility] Comment on above: Result [...] ED NOTEon 11-09-2020 ED NOTE HNO ID: [id number] Author: Yaya Singletary RN Service: ? Author Type: Registered Nurse Type: ED Notes Filed: 11/09/2020 1:34 PM Note Text: Report called to Abbey RN. All questions addressed. Vitals updated. Family at bedside. Pt NAD at this time. This RN at bedside to transport pt. Floor nurse aware of blood cultures and covid in process. Normal [facility] ED NOTE HNO ID: [id number] Author: Yaya Singletary RN Service: ? Author Type: Registered Nurse Type: ED Notes Filed: 11/09/2020 7:44 AM Note Text: Portable CXR at bedside. [facility] ED NOTE HNO ID: [id number] Author: Yaya Singletary RN Service: ? Author Type: Registered Nurse Type: ED Notes Filed: 11/09/2020 7:18 AM Note Text: Assumed care of patient from Traci DIEGO. Pt in room standing up at bedside with emesis bag. NAD or active vomiting at this time. Joy PAULSON in room to talk with patient. [facility] ED NOTE HNO ID: [id number] Author: Connie Vazquez RN Service: ? 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 O2 Therapy: Room [...] is w (more content not included)... 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 Normal [facility] High Sens Troponin Ton 11-09 High Sensitivity SALLY 6 ng/L Normal <12 [facility] Comment on above: Result [...] High Sensitivity SALLY 6 ng/L Normal <12 [facility] Comment on above: Result [...] CRISTINA+probe Ql (Unsp spec) Nasopharyngeal Swab Normal [facility] Comment on above: Performed By: #### I TCOVD ####[address] [phone] SARS-CoV-2 (COVID-19) RNA CRISTINA+probe Ql (Unsp spec) Negative for COVID19 (SARS CoV2) by RT-PCR or equivalent method. Normal Negative for COVID19 (SARS CoV2) by RT-PCR or equivalent method. [facility] Comment on above: Result Comment: This test was developed and its performance characteristics determined by [facility]'s [facility] [place]. This test has been authorized by FDA under an Emergency Use Authorization (EUA). This test has been validated in accordance with the FDA's Guidance Document Policy for Diagnostics Testing in Laboratories Certified to Perform High Complexity Testing under CLIA prior to Emergency use Authorization for Coronavirus Disease 2019 during the Public Health Emergency issued on August 20, 2019. Test performed by [facility], [facility] [place], [address] [place], [place] [address]. Performed By: #### I TCOVD ####[facility] [address] [place], [place] [phone] Lipaseon 11-09-2020 Lipase [Catalytic activity/Vol] 21 U/L Normal 16-61 [facility] NURSING PROGon 11-09-2020 NURSING PROG HNO ID: [id number] Author: Saskia Cm RN Service: ? Author Type: Registered Nurse Type: Nursing Progress Note Filed: 11/10/2020 6:04 AM Note Text: Nursing Progress Note Patient Name: Maricarmen [place] Daily Note: Received report from BRANDIE Joel. [...] note was completed by: Saskia Cm Normal [facility] NURSING PROG HNO ID: [id number] Author: Wisam Carvajal RN Service: ? Author Type: Registered Nurse Type: Nursing Progress Note Filed: 11/09/2020 7:00 PM Note Text: Nursing Progress Note Patient Name: Maricarmen Anderson [place] Daily Note: 1454: assessment complete, patient complains of severe left flank pain and nausea, will continue to monitor 1845: Blood cultures collected and sent to lab This note was completed by: Wisam Carvajal [facility] NURSING PROG HNO ID: [id number] Author: Wisam Carvajal, RN Service: ? Author Type: Registered Nurse Type: Nursing Progress Note Filed: 11/09/2020 5:16 PM Note Text: Nursing Progress Note Patient Name: Maricarmen Anderson [facility] Transfer Note: Patient transferred into room/unit 931 in stable condition. Actions taken: No futher actions taken at this time. Will continue to monitor and check with patient. This note was completed by: Wisam Carvajal [facility] Urinalysis with Microscopico n 11-09-2020 Bacteria 3+ /HPF Critically abnormal Negative [facility] Bilirubin, Urine Negative Normal Negative [facility] Cast SEE COMMENT Normal 0 [facility] Comment on above: Result Comment: 0 Clarity (U) Slightly Cloudy Critically abnormal Clear [facility] Color (U) Yellow Normal Yellow [facility] Epithelial cells LM Ql (Urine sed) SEE COMMENT Critically abnormal Occasional [facility] Comment on above: Result Comment: 2+ Squamous Epithelial Cells Glucose Ql (U) Negative Normal Negative [facility] Hemoglobin/Blood,Ur Negative Normal Negative [facility] Ketones Ql (U) Negative Normal Negative [facility] Leukest 1+ Critically abnormal Negative [facility] Nitrite Ql (U) Negative Normal Negative [facility] pH (U) 6.5 [pH] Normal 5.0-8.0 [facility] Protein, Urine Trace Critically abnormal Negative [facility] RBC 0-3 Normal 0-3 [facility] Specific [place], Ur >=1.030 Normal 1.005-1.030 [facility] Urobilinogen Qn (U) 2.0 {José'U}/dL High 0.2-1.0 [facility] WBC 6-10 Critically abnormal 0-5 [facility] Urine Cultureon 11-09-2020 Bacteria [...] Result - <10,000 CFU/ml Normal urogenital yogesh [facility] Comment on above: Performed By: #### U RCUL ####[facility] [place], [place] [phone] XR CHEST 1V FRONTAL PORTon 0 11-09-2020 [...] Nov 09 2020 7:59AM EST [id number] [facility]2020 [facility] ----- MARICARMEN ANDERSON ([id number]) 1980 F T Date Time Provider Department 11/08/20 CLEMENTE ENG During your visit today, we recorded the following information about you: BYRON Richter 11/08/2020 9:29 AM Signed Called PCP office (Dr Viktor Sotelo) [phone] is out of the office this week. Asked if Nurse could fax copies of recent lab work, imaging that may have been done while patient was recently hospitalized last week. BYRON Richter CT 11/09/2020 8:17 AM Signed Outside records received and scanned to [employer] Forwarded to Dr Eng. BYRON Richter Allergies [...] by NICOLETTE SANCHEZ on 11/09/20 [facility] Telephone ([employer]) ----- MARICARMEN ANDERSON ([id number]) 1980 F [facility] Date Time Provider Department 11/05/20 CLEMENTE ENG During your visit today, we recorded the following information about you: Nicolette Laura, BYRON 11/05/2020 9:58 AM Signed Patient called. [...] Fully Assessed Reason for Visit: Patient Question [2183] Prescriptions as of 11/05/2020 Sig: LORAZEPAM 0.5 [...] Status:Closed by CARLOS ALBERTO SIMMONS on 11/07/20 [facility] CNPN Tele[facility] (NSCAM[employer]) ----- MARICARMEN ANDERSON ([id number]) 1980 F T Date Time Provider Department 10/30/20 EMELIA BALDWIN [facility] During your visit today, we recorded the following information about you: Urmila Hein [facility] 2020 8:29 AM Signed Order Request Caller : Maricarmen Contact Order Being Requested : MRI Cervical Spine Orders need to be placed in [facility] Laith Donaldson RN 2020 12:42 PM [...] (HCC) [G93.5] Order(s):MRI CERVICAL SPINE WO IVCON [[id number]] Order #: [id number] FUTURE Prescriptions as of 2020 Sig: LORAZEPAM [...] Encounter Status:Closed by LAITH DONALDSON on 10/30/20 [facility] Raman 10-22-2020 CNPN Telephone (SPPRAD) ----- PAIGEMARICARMEN Johnson ([id number]) 1980 F T Date Time Provider Department [...] Reason for Visit: Radio Imaging Study Comments [0470] Prescriptions as of 10/22/2020 Sig: IV CONTRAST [...] Status:Closed by CLEMENTE ENG on 10/22/20 [facility] 10-08-2020 [facility] Telephone ([employer]) ----- MARICARMEN ANDERSON ([id number]) 1980 F [facility] Date Time Provider Department 10/08/20 CLEMENTE [...] patient should come to the ER at [facility] if she is dehydrated and a new [...] Status:Closed by NICOLETTE KING on 10/09/20 Normal [facility] Basic Metabolic Panlon 09-29 Anion gap [Moles/Vol] 10 mmol/L Normal 0-15 [facility] Comment on above: Performed By: #### P REALB ####[facility] [place], [place] [phone] Calcium [Mass/Vol] 9.4 mg/dL Normal 8.5-10.2 [facility] Comment on above: Performed By: #### P REALB ####[facility] [address] [place], [place] [phone] Chloride [Moles/Vol] 110 mmol/L High 97-105 [facility] Comment on above: Performed By: #### P REALB ####[facility] [address] [place], [place] [phone] CO2 [Moles/Vol] 20 mmol/L Low 22-30 [facility] Comment on above: Performed By: #### P REALB ####[facility] [address] [phone] Creatinine [Mass/Vol] 0.75 mg/dL Normal 0.58-0.96 [facility] Comment on above: Performed By: #### P REALB ####[address] [phone] eGFR- Amer. >60 Normal [facility] Comment on above: Performed By: #### P REALB ####[address] [phone] eGFR-All Other Races >60 Normal [facility] Comment on above: Result [...] actual GFR. Performed By: #### P REALB ####[address] [phone] Glucose [Mass/Vol] 108 mg/dL High 74-99 [facility] Comment on above: Performed By: #### P REALB ####[address] [phone] Potassium [Moles/Vol] 3.6 mmol/L Low 3.7-5.1 [facility] Comment on above: Performed By: #### P REALB ####[address] [phone] Sodium [Moles/Vol] 140 mmol/L Normal 136-144 [facility] Comment on above: Performed By: #### P REALB ####[address] [phone] Urea nitrogen [Mass/Vol] 12 mg/dL Normal 7-21 [facility] Comment on above: Performed By: #### P REALB ####[facility] [address] [place], [place] [phone] CASE MANAGEMon 09-29-2020 CASE MANAGEM HNO ID: [id number] Author: Wiliam Santamaria Service: Case Management Author [...] ensure compliance with [facility] policy regarding Inpatient Admission and Observation Services. [...] physician's order as documented evidence of concurrence. [facility] CASE MGT INIT Cory 2020 CASE MGT INIT JORGE HNO ID: [id number] Author: Anaid (Rn) BRANDIE Valencia Service: ? Author Type: Registered Nurse Type: Care Mgt Initial Assessment Filed: 09/29/2020 11:10 AM Note Text: CARE MANAGEMENT: ASSESSMENT AND DISCHARGE PLAN SERVICE DATE: September 29, 2020 SERVICE TIME: 1030 PRIMARY CARE PHYSICIAN: Viktor Sotelo MD ADMISSION STATUS: Inpatient Needs Prior to Discharge: (Tube Feeding Prescription) MEDICAL: MEDICARE A AND B Patient/Cook Mayonnaise Stated Goals: This has been discussed with my physician Health Insurance: Medicare Health Issues Impacting Discharge Plan: Chronic Chronic: Gastroparesis Last Discharge Date: 05/29/20 Is this Within the Past 30 days? Last discharge within 30 days: No Advance Directive: Current Advance Directive: None Certified Pharmacy Technician Attempted to Assist with AD Completion: Yes [...] supplies Has the Patient Been in a Retirement Facility in the Past 30 days?: No [...] Mostly I feel financially burdened by my [id number] expenses for my prescription medication:: 0 - Disagree Mostly Risk Score: 0 Patient is categorized as: Low risk < 2 Are you interested in bedside delivery of your medications? Not known ASSESSMENT AND PLAN: Medical Needs: Medical Needs: Two or more chronic diseases;Nutritional Nutrition Needs: Tube Feed Psychosocial Needs: Psychosocial Needs: None FREEDOM OF CHOICE EXPLAINED: [place] of Choice Given: No (No new placeement needed and to continue with [facility]) POTENTIAL TRANSITION PLANS Home Care;Home Care Pharmacy Patient's young son lives with her, and when asked, she states that she is independent. Patient is on home enteral tube feedings via jejunostomy and here for malfunctioning tube. Provider is [facility] and referral sent. Patient is independent with [...] 29, 2020 TIME: 11:04 AM PAGER/CONTACT #: [phone] Normal [facility] CBCon 09-29-2020 Absolute nRBC <0.01 Normal <0.01 [facility] Comment on above: Performed By: #### P REALB ####[facility] [address] [place], [place] [phone] Erythrocyte distribution width (RBC) [Ratio] 15.3 % High 11.5-15.0 [facility] Comment on above: Performed By: #### P REALB ####[facility] [address] [place], [place] [phone] Hematocrit (Bld) [Volume fraction] 30.3 % Low 36.0-46.0 [facility] Comment on above: Performed By: #### P REALB ####[place] [address] [place], [place] [phone] Hemoglobin (Bld) [Mass/Vol] 9.1 g/dL Low 11.5-15.5 [facility] Comment on above: Performed By: #### P REALB ####[address] [place], [place] [phone] MCH 25.9 pG Low 26.0-34.0 [facility] Comment on above: Performed By: #### P REALB ####[address] [place], [place] [phone] MCHC (RBC) [Mass/Vol] 30.0 g/dL Low 30.5-36.0 [facility] Comment on above: Performed By: #### P REALB ####[address] [place], [place] [phone] MCV (RBC) [Entitic vol] 86.3 fL Normal 80.0-100.0 [facility] Comment on above: Performed By: #### P REALB ####[address] [place], [place] [phone] Platelet mean volume (Bld) [Entitic vol] 10.6 fL Normal 9.0-12.7 [facility] Comment on above: Performed By: #### P REALB ####[place] [address] [place], [place] [phone] Platelets (Bld) [#/Vol] 170 10*3/uL Normal 150-400 [facility] Comment on above: Performed By: #### P REALB ####[address] [place], [place] [phone] RBC (Bld) [#/Vol] 3.51 10*6/uL Low 3.90-5.20 [facility] Comment on above: Performed By: #### P REALB ####[address] [place], [place] [phone] WBC (Bld) [#/Vol] 6.60 10*3/uL Normal 3.70-11.00 [facility] Comment on above: Performed By: #### P REALB ####[facility] [address] [place], [place] [phone] CNDSon 09-29-2020 CNDS HNO ID: [id number] Author: Maynor Manley DO Service: General Surgery [...] DATE: September 29, 2020 TIME: 11:09 AM [facility] CT ABD/PEL WO IVCONon 2020 CT ABD/PEL WO IVCON * * *Final Report* * * DATE OF EXAM: Sep 28 2020 10:39PM [facility] 0531 - CT ABD/PEL WO IVCON / [...] Tissues: No acute abnormality. Lower thorax: Unremarkable. Parts Processor (topogram) images: No additional findings. IMPRESSION: Retracted [...] Sep 28 2020 11:12PM EST [id number] Normal [facility] Coronavirus 2019on 1 SARS-CoV-2 (COVID-19) RNA CRISTINA+probe Ql (Unsp spec) Nasopharyngeal Swab Normal [facility] Comment on above: Performed By: #### C OVID ####[facility] [facility] [place], [place] [phone] SARS-CoV-2 (COVID-19) RNA CRISTINA+probe Ql (Unsp spec) Negative Normal Negative for COVID19 (SARS CoV2) by PCR. [facility] Comment on above: Result Comment: This test was developed and its performance characteristics determined by [facility] Medicine [place]. This test has been authorized by FDA under an Emergency Use Authorization (EUA). This test has been validated in accordance with the FDA's Guidance Document Policy for Diagnostics Testing in Laboratories Certified to Perform High Complexity Testing under CLIA prior to Emergency use Authorization for Coronavirus Disease 2019 during the Public Health Emergency issued on August 20, 2019. Test performed by [facility], [facility]aker [facility] [place], [address], [place] [address]. Performed By: #### C OVID ####[facility] [place], [place] [phone] ED NOTEon 09-29-2020 ED NOTE HNO ID: [id number] Author: Soco VasquezRn) BRANDIE Bardales Service: ? Author Type: Registered Nurse Type: ED Notes Filed: 09/28/2020 11:04 PM Note Text: covid obtained and sent. [facility] NURSING PROGon 09-29-2020 NURSING PROG HNO ID: [id number] Author: Mercy VasquezRn) BRANDIE Whitaker Service: ? Author Type: Registered Nurse Type: Nursing Progress Note Filed: 09/29/2020 12:51 PM Note Text: Nursing Progress Note Patient Name: Maricarmen Anderson Patient Location: [facility] [place] Daily Note: patient resting in bed, made NPO for removal of J-tube. This note was completed by: Mercy Whitaker RN [facility] NURSING PROG HNO ID: [id number] Author: Anne-Marie VasquezRnNorth Farley RN Service: Nursing Author Type: Registered Nurse Type: Nursing Progress Note Filed: 09/29/2020 7:33 AM Note Text: Nursing Progress Note Patient Name: Maricarmen Anderson Patient Location[place] Daily Note: 0054 Pt arrived in room, oriented to floor and room, safety maintained. 0100 Pt has a fever tylenol given. 0733 Report given to Mercy (Rn). This note was completed by: Anne-Marie Farley RN [facility] NUTRITIONon 09-29-2020 NUTRITION HNO ID: [id number] Author: Molly Tello) Gurpreet Service: Nutrition Therapy Author Type: Registered Dietitian Type: Nutrition Filed: 09/29/2020 11:21 AM Note Text: NUTRITION THERAPY INITIAL ASSESSMENT SERVICE DATE: 09/29/2020 SERVICE TIME: 11:13 AM Nutrition Assessment: Recommended Malnutrition Diagnosis: No Malnutrition Identified Nutrition Diagnosis: Problem: Inadequate Enteral Nutrition Infusion Related to: Mechanical cause As evidenced by: Patient/family self-report Estimated kilocalorie needs: 2269 Calorie Calculation Method: Bonifay-St. Gilbertor (with activity factor) (1.3) Estimated protein needs (grams): 77-100 Grams protein determined by: 1.3 - 1.7 g/kg;[place] body weight Care Plan: Advance diet to regular diet with TF Supplements: zone bar, Boost GC, and loraine [employer] each daily Enteral Nutrition Tube Feeding Formula Type: Loraine [employer] Peptide 1.5 Goal Rate (mL/hr x hours): [...] 7. BREAKFAST, LUNCH, DINNER Supplement 3 LORAINE [employer] 1.0 CHOCOLATE Supplement 3 Frequency 7. BREAKFAST, [...] Assess/15 min 3 units SIGNATURE: Molly Vázquez, MS,RD,LD,[facility] PATIENT NAME: Maricarmen Anderson DATE: September 29, 2020 TIME: 11:13 AM PAGER: [phone] Normal [facility] Prealbuminon 09-29-2020 Prealbumin [Mass/Vol] 21 mg/dL Normal 17-36 [facility] Comment on above: Performed By: #### P REALB ####[facility] [place], [place] [phone] CBC and Differentialon 09-28 Abs Baso <0.03 Normal <0.11 [facility] Abs [place] 0.28 k/uL Normal <0.87 [facility] Abs Neut 5.26 k/uL Normal 1.45-7.50 [facility] Absolute nRBC <0.01 Normal <0.01 [facility] Basophils/100 WBC (Bld) 0.3 % Normal [facility] DTYPE Auto Diff Normal [facility] Eosinophils (Bld) [#/Vol] 0.04 10*3/uL Normal <0.46 [facility] Eosinophils/100 WBC (Bld) 0.6 % Normal [facility] Erythrocyte distribution width (RBC) [Ratio] 15.2 % High 11.5-15.0 [facility] Hematocrit (Bld) [Volume fraction] 31.5 % Low 36.0-46.0 [facility] Hemoglobin (Bld) [Mass/Vol] 9.3 g/dL Low 11.5-15.5 [facility] Lymphocytes (Bld) [#/Vol] 0.93 10*3/uL Low 1.00-4.00 [facility] Lymphocytes/100 WBC (Bld) 14.2 % Normal [facility] MCH 25.6 pG Low 26.0-34.0 [facility] MCHC (RBC) [Mass/Vol] 29.5 g/dL Low 30.5-36.0 [facility] MCV (RBC) [Entitic vol] 86.8 fL Normal 80.0-100.0 [facility] Monocytes/100 WBC (Bld) 4.3 % Normal [facility] Neutrophils/100 WBC (Bld) 80.6 % Normal [facility] NRBCs 0.0 /100 WBC Normal 0 [facility] Platelet mean volume (Bld) [Entitic vol] 10.4 fL Normal 9.0-12.7 [facility] Platelets (Bld) [#/Vol] 186 10*3/uL Normal 150-400 [facility] RBC (Bld) [#/Vol] 3.63 10*6/uL Low 3.90-5.20 [facility] WBC (Bld) [#/Vol] 6.54 10*3/uL Normal 3.70-11.00 [facility] CNPNon 09-28-2020 CNPN Telephone (GENSSP) ----- MARICARMEN ANDERSON ([id number]) 1980 F T Date Time Provider Department [...] would like J tube removed. Nicolette Sanchez, BYRON Eng MD 09/28/2020 4:47 PM Signed [...] Fully Assessed Reason for Visit: Patient Question [0927] Primary Visit Diagnosis:Gastrojejunosto my tube dislodgement [T85.528A] Order(s):XR ABDOMEN 1V SUPINE [[id number]] Order #: [id number] FUTURE Prescriptions as of 09/28/2020 Sig: ACETAZOLAMIDE [...] Status:Closed by NICOLETTE KING on 09/28/20 Normal [facility] CONSULTon 09-28-2020 CONSULT HNO ID: [id number] Author: Elissa Medina MD Service: General Surgery [...] att. 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 Normal [facility] Comp Metabolic Panelon 09-28 Albumin [Mass/Vol] 4.3 g/dL Normal 3.5-5.0 [facility] ALP [Catalytic activity/Vol] 72 U/L Normal 34-123 [facility] ALT [Catalytic activity/Vol] 11 U/L Normal 7-38 [facility] Anion gap [Moles/Vol] 11 mmol/L Normal 0-15 [facility] AST [Catalytic activity/Vol] 19 U/L Normal 13-35 [facility] Bilirubin [Mass/Vol] 0.4 mg/dL Normal 0.2-1.3 [facility] Calcium [Mass/Vol] 9.6 mg/dL Normal 8.5-10.2 [facility] Chloride [Moles/Vol] 110 mmol/L High 97-105 [facility] CO2 [Moles/Vol] 18 mmol/L Low 22-30 [facility] Creatinine [Mass/Vol] 0.68 mg/dL Normal 0.58-0.96 [facility] eGFR- Amer. >60 Normal [facility] eGFR-All Other Races >60 Normal [facility] Comment on above: Result [...] GFR. Glucose [Mass/Vol] 97 mg/dL Normal 74-99 [facility] Potassium [Moles/Vol] 3.8 mmol/L Normal 3.7-5.1 [facility] Protein [Mass/Vol] 7.3 g/dL Normal 6.3-8.0 [facility] Sodium [Moles/Vol] 139 mmol/L Normal 136-144 [facility] Urea nitrogen [Mass/Vol] 14 mg/dL Normal 7-21 [facility] ED NOTEon 09-28-2020 ED NOTE HNO ID: [id number] Author: Arminda VasquezRn) BRANDIE Wong Service: ? Author Type: Registered Nurse Type: ED Notes Filed: 09/28/2020 9:17 PM Note Text: Pt has finished Contrast via tube Normal [facility] ED NOTE HNO ID: [id number] Author: Keven VasquezRn) BRANDIE Reid Service: ? [...] rails up x2. Call bagley within reach. 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 Normal [facility] Lipaseon 09-28-2020 Lipase [Catalytic activity/Vol] 30 U/L Normal 16-61 [facility] Basic Metabolic Panlon 05-29 Anion gap [Moles/Vol] 10 mmol/L Normal 0-15 [facility] Calcium [Mass/Vol] 9.2 mg/dL Normal 8.5-10.2 [facility] Chloride [Moles/Vol] 106 mmol/L High 97-105 [facility] CO2 [Moles/Vol] 23 mmol/L Normal 22-30 [facility] Creatinine [Mass/Vol] 0.78 mg/dL Normal 0.58-0.96 [facility] eGFR- Amer. >60 Normal [facility] eGFR-All Other Races >60 Normal [facility] Comment on above: Result Comment: eGFR (Estimated GFR) Units of measure: mL/min/1.73 meters squared eGFR is derived from the reexpressed MDRD Study equation using the following parameters: serum creatinine, age, gender and race. The creatinine assay has been calibrated to be traceable to IDQuantitative Medicine. An eGFR <60 mL/min/1.73m2 for >3 months is consistent with chronic kidney disease. Refer to KDOQI guidelines for clinical interpretation. In patients with unstable renal function, e.g. those with acute kidney injury, the eGFR may not accurately reflect actual GFR. Glucose [Mass/Vol] 88 mg/dL Normal 74-99 [facility] Potassium [Moles/Vol] 3.9 mmol/L Normal 3.7-5.1 [facility] Sodium [Moles/Vol] 139 mmol/L Normal 136-144 [facility] Urea nitrogen [Mass/Vol] 8 mg/dL Normal 7-21 [facility] CBC and Differentialon 05-29 Abs Baso <0.03 Normal <0.11 [facility] Abs [place] 0.33 k/uL Normal <0.87 [facility] Abs Neut 2.58 k/uL Normal 1.45-7.50 [facility] Absolute nRBC <0.01 Normal <0.01 [facility] Basophils/100 WBC (Bld) 0.5 % Normal [facility] DTYPE Auto Diff Normal [facility] Eosinophils (Bld) [#/Vol] 0.08 10*3/uL Normal <0.46 [facility] Eosinophils/100 WBC (Bld) 1.9 % Normal [facility] Erythrocyte distribution width (RBC) [Ratio] 13.5 % Normal 11.5-15.0 [facility] Hematocrit (Bld) [Volume fraction] 27.4 % Low 36.0-46.0 [facility] Hemoglobin (Bld) [Mass/Vol] 8.4 g/dL Low 11.5-15.5 [facility] Lymphocytes (Bld) [#/Vol] 1.25 10*3/uL Normal 1.00-4.00 [facility] Lymphocytes/100 WBC (Bld) 29.3 % Normal [facility] MCH 27.6 pG Normal 26.0-34.0 [facility] MCHC (RBC) [Mass/Vol] 30.7 g/dL Normal 30.5-36.0 [facility] MCV (RBC) [Entitic vol] 90.1 fL Normal 80.0-100.0 [facility] Monocytes/100 WBC (Bld) 7.7 % Normal [facility] Neutrophils/100 WBC (Bld) 60.6 % Normal [facility] NRBCs 0.0 /100 WBC Normal 0 [facility] Platelet mean volume (Bld) [Entitic vol] 10.9 fL Normal 9.0-12.7 [facility] Platelets (Bld) [#/Vol] 148 10*3/uL Low 150-400 [facility] RBC (Bld) [#/Vol] 3.04 10*6/uL Low 3.90-5.20 [facility] WBC (Bld) [#/Vol] 4.27 10*3/uL Normal 3.70-11.00 [facility] CNDSon 05-29-2020 [facility] HNO ID: [id number] Author: Deirdre Dejesus Service: General Surgery Author [...] Suppository by RECTAL (more content not included)... [facility] NURSING PROGon 05-29-2020 NURSING PROG HNO ID: [id number] Author: Mitchel VasquezRn) BRANDIE Larry Service: Nursing Author Type: Registered Nurse Type: Nursing Progress Note Filed: 05/29/2020 3:35 PM Note Text: Nursing Progress Note Patient Name: Maricarmen Anderson Patient Location: [facility]/ [place] 0730 Assumed care of patient after report from night RN. 1311 tube feed rate increased to goal rate of 55 ml/hr. Dr. Eng (PCP) plans to discharge today. No distress at this time. Patient expressing eagerness to go home [address] Eng he is to have commercial intern write up discharge order and instructions. This note was completed by: Mitchel Larry RN [facility] NUTRITIONon 05-29-2020 NUTRITION HNO ID: [id number] Author: Maricarmen Santiago Service: Nutrition Therapy Author Type: Registered Dietitian Type: Nutrition Filed: 05/29/2020 11:16 AM Note Text: NUTRITION THERAPY PROGRESS NOTE SERVICE DATE: 05/29/2020 SERVICE TIME: 11:15 AM Nutrition Assessment: Recommended Malnutrition Diagnosis: Mild Protein-Calorie Malnutrition (05/26/20 1142 : Molly Vázquez) Estimated kilocalorie needs: 2040 Calorie Calculation Method: Bonifay-[employer]. [employer] (with activity factor)(1.2 AF) Estimated protein needs (grams): 89-118 Grams protein determined by: 1.5-2.0 g/kg Care Plan: Continue current diet Increase to goal as tolerated Enteral Nutrition Tube Feeding Formula Type: [employer] Peptide 1.5 Goal Rate (mL/hr x hours): [...] Tube Feeding;Diet Diet: per physician Enteral/Tube Feedings: [employer] Peptide 1.5 @ 55 ml/hr Interval History:Pt started on TF [employer] Peptide 1.5. Currently running at 40 ml/hr [...] May 29, 2020 TIME: 11:15 AM PAGER: [phone] [facility] ANES POSTPROC EVALon 020 ANES POSTPROC EVAL HNO ID: [id number] Author: Dennis Coulter Service: ? Author Type: [...] SIGNATURE: Dennis Coulter DO PATIENT NAME: Maricarmen Machucaliz DATE: May 28, 2020 TIME: 12:32 PM CSN: [id number] [facility] ANES PRE-OPon 05-28-2020 ANES PRE-OP HNO ID: [id number] Author: Dennis Coulter Service: ? Author Type: [...] Goal r (more content not included)... Normal [facility] Basic Metabolic Panlon 05-28 Anion gap [Moles/Vol] 7 mmol/L Normal 0-15 [facility] Calcium [Mass/Vol] 9.1 mg/dL Normal 8.5-10.2 [facility] Chloride [Moles/Vol] 106 mmol/L High 97-105 [facility] CO2 [Moles/Vol] 29 mmol/L Normal 22-30 [facility] Creatinine [Mass/Vol] 0.68 mg/dL Normal 0.58-0.96 [facility] eGFR- Amer. >60 Normal [facility] eGFR-All Other Races >60 Normal [facility] Comment on above: Result [...] GFR. Glucose [Mass/Vol] 86 mg/dL Normal 74-99 [facility] Potassium [Moles/Vol] 3.4 mmol/L Low 3.7-5.1 [facility] Sodium [Moles/Vol] 142 mmol/L Normal 136-144 [facility] Urea nitrogen [Mass/Vol] 6 mg/dL Low 7-21 [facility] CBC and Differentialon 05-28 Abs Baso 0.03 k/uL Normal <0.11 [facility] Abs [place] 0.26 k/uL Normal <0.87 [facility] Abs Neut 2.02 k/uL Normal 1.45-7.50 [facility] Absolute nRBC <0.01 Normal <0.01 [facility] Basophils/100 WBC (Bld) 0.9 % Normal [facility] DTYPE Auto Diff Normal [facility] Eosinophils (Bld) [#/Vol] 0.06 10*3/uL Normal <0.46 [facility] Eosinophils/100 WBC (Bld) 1.8 % Normal [facility] Erythrocyte distribution width (RBC) [Ratio] 13.4 % Normal 11.5-15.0 [facility] Hematocrit (Bld) [Volume fraction] 26.2 % Low 36.0-46.0 [facility] Hemoglobin (Bld) [Mass/Vol] 8.2 g/dL Low 11.5-15.5 [facility] Lymphocytes (Bld) [#/Vol] 0.97 10*3/uL Low 1.00-4.00 [facility] Lymphocytes/100 WBC (Bld) 29.0 % Normal [facility] MCH 27.8 pG Normal 26.0-34.0 [facility] MCHC (RBC) [Mass/Vol] 31.3 g/dL Normal 30.5-36.0 [facility] MCV (RBC) [Entitic vol] 88.8 fL Normal 80.0-100.0 [facility] Monocytes/100 WBC (Bld) 7.8 % Normal [facility] Neutrophils/100 WBC (Bld) 60.5 % Normal [facility] NRBCs 0.0 /100 WBC Normal 0 [facility] Platelet mean volume (Bld) [Entitic vol] 10.7 fL Normal 9.0-12.7 [facility] Platelets (Bld) [#/Vol] 157 10*3/uL Normal 150-400 [facility] RBC (Bld) [#/Vol] 2.95 10*6/uL Low 3.90-5.20 [facility] WBC (Bld) [#/Vol] 3.34 10*3/uL Low 3.70-11.00 [facility] NURSING PROGon 05-28-2020 NURSING PROG HNO ID: [id number] Author: Leander VasquezRn) BRANDIE Shaver Service: ? Author Type: Registered Nurse Type: Nursing Progress Note Filed: 05/29/2020 8:02 AM Note Text: Nursing Progress Note Patient Name: Maricarmen Anderson Patient [place] Daily Note: 1929 Report received from BRANDIE Ho and carlosee and care of pt assumed 1944 Safety check performed 2117 Pt assessment completed and pt medicated appropriately 199 Pt is asleep with no signs of distress at this time. Call bagley in reach 729 Report given to BRANDIE Mcdonough/Radu This note was completed by: Leander Shaver RN Normal [facility] NURSING PROG HNO ID: [id number] Author: Albania VasquezRnNorth King RN Service: ? Author Type: Registered Nurse Type: Nursing Progress Note Filed: 05/28/2020 12:43 PM Note Text: Nursing Progress Note Patient Name: Maricarmen Anderson Patient Location: [facility] Daily Note: Verbal order from Dr. Gold for fentanyl and zofran IV for patient's pain and nausea. This note was completed by: ALBANIA King RN [facility] NURSING PROG HNO ID: [id number] Author: [place] (Rn) BRANDIE Mcnair Service: Nursing Author Type: Registered Nurse Type: Nursing Progress Note Filed: 05/28/2020 5:11 PM Note Text: Nursing Progress Note Patient Name: Maricarmen Anderson Patient Location: [facility]/ [place] Daily Note: 0700 Report received from BRANDIE [...] note was completed by: Georgia Mcnair RN [facility] CBC and Differentialon 05-27 Abs Baso <0.03 Normal <0.11 [facility] Abs [place] 0.29 k/uL Normal <0.87 [facility] Abs Neut 2.00 k/uL Normal 1.45-7.50 [facility] Absolute nRBC <0.01 Normal <0.01 [facility] Basophils/100 WBC (Bld) 0.3 % Normal [facility] DTYPE Auto Diff Normal [facility] Eosinophils (Bld) [#/Vol] 0.08 10*3/uL Normal <0.46 [facility] Eosinophils/100 WBC (Bld) 2.2 % [facility] Erythrocyte distribution width (RBC) [Ratio] 13.6 % Normal 11.5-15.0 [facility] Hematocrit (Bld) [Volume fraction] 25.7 % Low 36.0-46.0 [facility] Hemoglobin (Bld) [Mass/Vol] 8.0 g/dL Low 11.5-15.5 [facility] Lymphocytes (Bld) [#/Vol] 1.34 10*3/uL Normal 1.00-4.00 [facility] Lymphocytes/100 WBC (Bld) 36.0 % Normal [facility] MCH 27.9 pG Normal 26.0-34.0 [facility] MCHC (RBC) [Mass/Vol] 31.1 g/dL Normal 30.5-36.0 [facility] MCV (RBC) [Entitic vol] 89.5 fL Normal 80.0-100.0 [facility] Monocytes/100 WBC (Bld) 7.8 % Normal [facility] Neutrophils/100 WBC (Bld) 53.7 % Normal [facility] NRBCs 0.0 /100 WBC Normal 0 [facility] Platelet mean volume (Bld) [Entitic vol] 10.6 fL Normal 9.0-12.7 [facility] Platelets (Bld) [#/Vol] 150 10*3/uL Normal 150-400 [facility] RBC (Bld) [#/Vol] 2.87 10*6/uL Low 3.90-5.20 [facility] WBC (Bld) [#/Vol] 3.72 10*3/uL Normal 3.70-11.00 [facility] CT KIDNEY WO/W IVCONon 05-27 CT KIDNEY WO/W IVCON * * *Final Report* * * DATE OF EXAM: May 27 2020 12:32PM [facility] 0546 - CT KIDNEY WO/W IVCON / [...] hypoventilatory changes in the dependent lung bases. Parts Processor (topogram) images: No additional findings. IMPRESSION: Hypodense [...] on May 27 2020 1:14PM EST [id number] [facility] Comp Metabolic Panelon 05-27 Albumin [Mass/Vol] 3.4 g/dL Low 3.5-5.0 [facility] ALP [Catalytic activity/Vol] 73 U/L Normal 34-123 [facility] ALT [Catalytic activity/Vol] U/L Low 7-38 [facility] Anion gap [Moles/Vol] 12 mmol/L Normal 0-15 [facility] AST [Catalytic activity/Vol] 15 U/L Normal 13-35 [facility] Bilirubin [Mass/Vol] 0.3 mg/dL Normal 0.2-1.3 [facility] Calcium [Mass/Vol] 8.8 mg/dL Normal 8.5-10.2 [facility] Chloride [Moles/Vol] 106 mmol/L High 97-105 [facility] CO2 [Moles/Vol] 24 mmol/L Normal 22-30 [facility] Creatinine [Mass/Vol] 0.70 mg/dL Normal 0.58-0.96 [facility] eGFR- Amer. >60 Normal [facility] eGFR-All Other Races >60 Normal [facility] Comment on above: Result [...] GFR. Glucose [Mass/Vol] 99 mg/dL Normal 74-99 [facility] Potassium [Moles/Vol] 3.6 mmol/L Low 3.7-5.1 [facility] Protein [Mass/Vol] 5.7 g/dL Low 6.3-8.0 [facility] Sodium [Moles/Vol] 142 mmol/L Normal 136-144 [facility] Urea nitrogen [Mass/Vol] 5 mg/dL Low 7-21 [facility] NURSING PROGon 05-27-2020 NURSING PROG HNO ID: [id number] Author: Tacho VasquezRn) BRANDIE Marr Service: ? Author Type: Registered Nurse Type: Nursing Progress Note Filed: 05/28/2020 3:20 AM Note Text: Nursing Progress Note Patient Name: Maricarmen Anderson Patient Location: / Daily Note: 1922 Assumed care of patient, received report. STAT EKG ordered through respiratory for pt stating palpitations. Will start tube feed and hold at midnight for EGD, 05/28. 2114 Assessment complete, see NPR. EKG completed and strip placed in patients chart. 2116 Ordered medications given, see eMAR. 2146 Paged general surgery: 721-2, r- Patient has l[employer] peptide 1.5 ordered, this is not supplied at [facility]. [employer] 1.0 is at bedside, is this okay to use in place? Please advise. Thanks, Kp @ [phone] Tube feed held per orders for EGD, 05/28. This note was completed by: Tacho Marr RN [facility] NURSING PROG HNO ID: [id number] Author: Bibi VasquezRn) BRANDIE Freeman Service: Nursing Author Type: Registered Nurse Type: Nursing Progress Note Filed: 05/27/2020 7:25 PM Note Text: Nursing Progress Note Patient Name: Maricarmen Anderson Patient Location: / Daily Note:0724am updates from awake overnight monitor nurse. Iv fluids at 50ml/hr per pt's [...] farms peptide 1.5. will arrive from dietary. 1925pm updates to awake overnight monitor nurse. This note was completed by: Bibi Freeman, RN Normal [facility] CBC and Differentialon 05-26 Abs Baso <0.03 Normal <0.11 [facility] Abs [place] 0.32 k/uL Normal <0.87 [facility] Abs Neut 1.63 k/uL Normal 1.45-7.50 [facility] Absolute nRBC <0.01 Normal <0.01 [facility] Basophils/100 WBC (Bld) 0.5 % Normal [facility] DTYPE Auto Diff Normal [facility] Eosinophils (Bld) [#/Vol] 0.07 10*3/uL Normal <0.46 [facility] Eosinophils/100 WBC (Bld) 1.8 % Normal [facility] Erythrocyte distribution width (RBC) [Ratio] 13.6 % Normal 11.5-15.0 [facility] Hematocrit (Bld) [Volume fraction] 27.2 % Low 36.0-46.0 [facility] Hemoglobin (Bld) [Mass/Vol] 8.5 g/dL Low 11.5-15.5 [facility] Lymphocytes (Bld) [#/Vol] 1.85 10*3/uL Normal 1.00-4.00 [facility] Lymphocytes/100 WBC (Bld) 47.4 % Normal [facility] MCH 27.7 pG Normal 26.0-34.0 [facility] MCHC (RBC) [Mass/Vol] 31.3 g/dL Normal 30.5-36.0 [facility] MCV (RBC) [Entitic vol] 88.6 fL Normal 80.0-100.0 [facility] Monocytes/100 WBC (Bld) 8.2 % Normal [facility] Neutrophils/100 WBC (Bld) 42.1 % Normal [facility] NRBCs 0.0 /100 WBC Normal 0 [facility] Platelet mean volume (Bld) [Entitic vol] 10.4 fL Normal 9.0-12.7 [facility] Platelets (Bld) [#/Vol] 150 10*3/uL Normal 150-400 [facility] RBC (Bld) [#/Vol] 3.07 10*6/uL Low 3.90-5.20 [facility] WBC (Bld) [#/Vol] 3.90 10*3/uL Normal 3.70-11.00 [facility] CONSULT PROGon 05-26-2020 CONSULT PROG HNO ID: [id number] Author: Raleigh Srivastava DO Service: General Surgery [...] DO Pager: DATE: 05/26/2020 TIME: 5:50 AM [facility] CT ABD/PEL W IVCONon 020 CT ABD/PEL W IVCON * * *Final Report* * * DATE OF EXAM: May 26 2020 12:43PM [facility] 0530 - CT ABD/PEL W IVCON / [...] atelectasis. Partially visualized electrodes in the heart. Parts Processor (topogram) images: No additional findings. IMPRESSION: No [...] be communicated with the ordering provider via Zayo staff message by Imaging Support Services within 2 business days of report finalization. Algorithms for management of incidental imaging findings can be found on the [facility] Intranet Sharepoint site at: [email or web address] [email or web address] Transcribed Using Voice Recognition Transcribe Date/Time: May 26 2020 12:59P Dictated by: ANIKET SIERRA MD This examination was interpreted and the report reviewed and electronically signed by: ANIKET SIERRA MD on May 26 2020 1:24PM EST [id number] [id number] Invalid Interpretation Code [facility] Comp Metabolic Panelon 05-26 Albumin [Mass/Vol] 3.6 g/dL Normal 3.5-5.0 [facility] ALP [Catalytic activity/Vol] 79 U/L Normal 34-123 [facility] ALT [Catalytic activity/Vol] 6 U/L Low 7-38 [facility] Anion gap [Moles/Vol] 8 mmol/L Normal 0-15 [facility] AST [Catalytic activity/Vol] 13 U/L Normal 13-35 [facility] Bilirubin [Mass/Vol] 0.4 mg/dL Normal 0.2-1.3 [facility] Calcium [Mass/Vol] 9.0 mg/dL Normal 8.5-10.2 [facility] Chloride [Moles/Vol] 106 mmol/L High 97-105 [facility] CO2 [Moles/Vol] 28 mmol/L Normal 22-30 [facility] Creatinine [Mass/Vol] 0.68 mg/dL Normal 0.58-0.96 [facility] eGFR- Amer. >60 Normal [facility] eGFR-All Other Races >60 Normal [facility] Comment on above: Result [...] GFR. Glucose [Mass/Vol] 98 mg/dL Normal 74-99 [facility] Potassium [Moles/Vol] 3.5 mmol/L Low 3.7-5.1 [facility] Protein [Mass/Vol] 6.1 g/dL Low 6.3-8.0 [facility] Sodium [Moles/Vol] 142 mmol/L Normal 136-144 [facility] Urea nitrogen [Mass/Vol] 8 mg/dL Normal 7-21 [facility] Coronavirus 2019on 0 SARS-CoV-2 (COVID-19) RNA CRISTINA+probe Ql (Unsp spec) Nasopharyngeal Swab Normal [facility] Comment on above: Performed By: #### C OVID ####[address] [phone] SARS-CoV-2 (COVID-19) RNA CRISTINA+probe Ql (Unsp spec) Negative Normal Negative for COVID19 (SARS CoV2) by PCR. [facility] Comment on above: Result Comment: This test was developed and its performance characteristics determined by [facility]'s Doug Mcnamara [facility] [place]. This test has been authorized by FDA under an Emergency Use Authorization (EUA). This test has been validated in accordance with the FDA's Guidance Document Policy for Diagnostics Testing in Laboratories Certified to Perform High Complexity Testing under CLIA prior to Emergency use Authorization for Coronavirus Disease 2019 during the Public Health Emergency issued on August 20, 2019. Performed By: #### C OVID ####[place] [id number] [place], [place] [phone] Folate, Serumon 05-26-2020 Folate [Mass/Vol] 5.7 ng/mL Normal >4.7 [facility] Comment on above: Performed By: #### P THI, VITD, B1WB ####[place] [address] [place], [place] [phone] Hemoglobin A1con 05-26-2020 Glucose [Mass/Vol] 114 mg/dL Normal [facility] Comment on above: Result Comment: eAG: (Estimated average glucose) is a calculated value from HgbA1c and is enrollment eligibility representative of the average blood glucose level in the last 2-3 month period. Performed By: #### P REALB, TRANSF #### [facility] [address] [place], [place] [address] HbA1c (Bld) [Mass fraction] 5.6 % Normal 4.3-5.6 [facility] Comment on above: Result Comment: Amer ican Diabetes Association guidelines indicate that patients with HgbA1c in the range 5.7-6.4% are at increased risk for development of diabetes, and intervention by lifestyle modification may be beneficial. HgbA1c greater or equal to 6.5% is considered diagnostic of diabetes. Performed By: #### P REALB, TRANSF #### [facility] [address] [place] [address] Iron and TIBCon 05-26-2020 Iron [Mass/Vol] 20 ug/dL Low 41-186 [facility] Comment on above: Performed By: #### P THI, VITD, B1WB ####[facility] [place], [place] [phone] TIBC 341 ug/dL Normal 210-415 [facility] Comment on above: Performed By: #### P THI, VITD, B1WB ####[facility] [place], [place] [phone] Transferrin Saturatn 6 % Low 11-46 [facility] Comment on above: Performed By: #### P THI, VITD, B1WB ####[facility] [place], [place] [phone] Lipaseon 05-26-2020 Lipase [Catalytic activity/Vol] 112 U/L High 16-61 [facility] Lipid Panel, [place] 020 Cholesterol [Mass/Vol] 188 mg/dL Normal <200 So [facility] Comment on above: Result Comment: <200 mg/dL, Desirable 200-239 mg/dL, Borderline high >239 mg/dL, High Performed By: #### P THI, VITD, B1WB ####[facility], [place] [phone] Cholesterol in HDL [Mass/Vol] 57 mg/dL Normal >39 [facility] Comment on above: Result Comment: 40-5 9 mg/dL, Acceptable >59 mg/dL, High: Negative risk factor for coronary heart disease <40 mg/dL, Low: Positive risk factor for coronary heart disease Performed By: #### P THI, VITD, B1WB ####[facility], [place] [phone] Cholesterol in LDL [Mass/Vol] 113 mg/dL High <100 [facility] Comment on above: Result Comment: <100 mg/dL, Optimal 100-129 mg/dL, Near optimal/above optimal 130-159 mg/dL, Borderline high 160-189 mg/dL, High >189 mg/dL, Very high Secondary prevention optimal LDL Cholesterol levels are recommended to be < 70 mg/dL Performed By: #### P THI, VITD, B1WB ####[place] [address] [place] [place], [place] [phone] Fasting Time Blood Normal [facility] Comment on above: Performed By: #### P THI, VITD, B1WB ####[place] [address] [place] [address], [place] [phone] LDL:HDL Ratio 1.98 Normal <2.54 [facility] Comment on above: Result Comment: Refe rence: 1. National Cholesterol Education Program ATP III Guideline At-A-Glance Quick Desk Reference: National Heart, Lung, and Blood [place]. National Institutes of Health. 2001: NIH Publication No. 01-3305. 2. An International Atherosclerosis Society position paper: global recommendations for the management of dyslipidemia: executive summary, Atherosclerosis. 2014: 232(2):410-413. Performed By: #### P THI, VITD, B1WB ####[place] [address] [place], [place] [phone] Non HDL Cholesterol 131 mg/dL High <130 [facility] Comment on above: Performed By: #### P THI, VITD, B1WB ####[facility] [place], [place] [phone] TC:HDL Ratio 3.30 Normal <5.10 [facility] Comment on above: Performed By: #### P THI, VITD, B1WB ####[facility] [place] [phone] Triglyceride [Mass/Vol] 88 mg/dL Normal <150 [facility] Comment on above: Result Comment: <150 mg/dL, Normal 150-199 mg/dL, Borderline high 200-499 mg/dL, High >499 mg/dL, Very high Performed By: #### P THI, VITD, B1WB ####[place] [address] [place] [phone] VLDL Cholesterol 18 mg/dL Normal <30 [facility] Comment on above: Performed By: #### P THI, VITD, B1WB ####[place] [phone] Magnesiumon 05-26-2020 Magnesium [Mass/Vol] 2.0 mg/dL Normal 1.7-2.6 [facility] NURSING PROGon 05-26-2020 NURSING PROG HNO ID: [id number] Author: Tacho (Rn) BRANDIE Marr Service: ? Author Type: Registered Nurse Type: Nursing Progress Note Filed: 05/27/2020 4:29 AM Note Text: Nursing Progress Note Patient Name: Maricarmen Anderson Patient Location[place] Daily Note: 1935 Assumed care of patient, received report. Assessment complete, see NPR. 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 Thanks, Kp @ [phone] IV fluids reduced to 75 ml/hr will monitor how patient tolerates and notify LIP in AM. 0000 IVF reduced to 50 ml/hr per patient request. 0245 Tube feeding restarted at 10 ml/hr start rate, pt previously was not tolerating feeding. 0400 Pt observed asleep in bed, NAD, IVF and tube feed running. This note was completed by: Tacho Marr RN [facility] NURSING PROG HNO ID: [id number] Author: Bibi VasquezRn) BRANDIE Freeman Service: Nursing Author Type: Registered Nurse Type: Nursing Progress Note Filed: 05/26/2020 7:34 PM Note Text: Nursing Progress Note Patient Name: Maricarmen Anderson Patient Location: [address] Daily Note:0800am report from awake overnight monitor nurse. Pt awake resting in bed. 0955am dietican rounding at bedside. Tf on hold for ct of abd/pelvis. 1140am dr. eng has rounded per pt. 1150am covid sent as ordered 1325pm pt delcines on starting tube feeding until ct results available. 1603pm pt awake resting in bed. All blood work collected and sent to lab as ordered. 1934pm report to awake overnight monitor nurse. This note was completed by: Bibi Freeman RN [facility] NURSING PROG HNO ID: [id number] Author: Rosibel VasquezRn) BRANDIE Bonilla Service: Nursing Author Type: Registered Nurse Type: Nursing Progress Note Filed: 05/26/2020 4:08 AM Note Text: Nursing Progress Note Patient Name: Maricarmen Anderson Patient Location: [place] [address]/ [place]-2 Daily Note: 2226 Nutren 1.5 hung at 20 ml/hr. 0000 Pt states she cannot tolerate tube feed. She is nauseous. Notified surgical asst. OK to hold TF for now. This note was completed by: Rosibel Bonilla RN [facility] NUTRITIONon 05-26-2020 NUTRITION HNO ID: [id number] Author: Molly (Maik) Gurpreet Service: Nutrition Therapy Author Type: Registered [...] Estimated kilocalorie needs: 2040 Calorie Calculation Method: Bonifay-St. Gab (with activity factor)(1.2 AF) Estimated protein [...] nausea and vomiting. She is from the [facility]. She did call her surgeon's service and advised her to come to [facility] to be evaluated. Patient does have a J-tube. She is able to flush her J-tube. However, the patient then vomits. She vomits after oral or J-tube feedings. Again, the patient does not have a stomach. She denies blood in the vomit. It is nonbilious. The patient is on Percocet at home. Describes a traumatic brain injury in January and was seen in the [facility]. She is now on prophylactic seizure [...] Assess/15 min 4 units SIGNATURE: Molly Vázquez, MS,RD,LD,[facility] PATIENT NAME: Maricarmen Anderson DATE: May 26, 2020 TIME: 11:53 AM PAGER: [phone] Normal [facility] PTH, Intacton 05-26-2020 PTH, Intact 127 pg/mL High [facility] Comment on above: Performed By: #### P THI, VITD, B1WB ####[facility] [place], [place] [phone] TSHon 05-26-2020 TSH Qn 1.040 m[IU]/L Normal 0.270-4.200 [facility] Comment on above: Result Comment: [...] Leone, et al. 2017 Guidelines of the [place] Thyroid Association for the Diagnosis and Management of Thyroid Disease during and the . Thyroid, 2017:27:3:315-389. Performed By: #### P THI, VITD, B1WB ####[place] [address] [place], [place] [phone] Vitamin B1, Whole Blon 05-26 Vitamin B1 (TDP), WB 56.6 nmol/L Low 84.0-213.0 [facility] Comment on above: Result Comment: This assay measures the concentration of thiamine diphosphate (TDP), the primary active form of vitamin B1. Approximately 90 percent of vitamin B1 present in whole blood is TDP. Thiamine and thiamine monophosphate, which comprise the remaining 10 percent, are not measured. This test was developed and its performance characteristics determined by [facility]'s Doug Whitaker [facility] Pathology and Laboratory Medicine [place] ([facility]). It has not been cleared or approved by the FDA. [facility] is regulated under CLIA as qualified to perform high complexity testing. This test is used for clinical purposes. It should not be regarded as investigational or for research. Performed By: #### P THI, VITD, B1WB ####[place] [address] [place], [place] [phone] Vitamin B12on 05-26-2020 Cobalamin (Vitamin B12) [Mass/Vol] 247 pg/mL Normal 232-1245 [facility] Comment on above: Performed By: #### P THI, VITD, B1WB ####[address] [phone] Vitamin D 25 Hydroxyon 05-26 Vitamin D 25 Hydroxy 9.6 ng/mL Low 31.0-80.0 [facility] Comment on above: Result Comment: Clas sification of 25 [place] Vitamin D status: Insufficiency/Moderate Deficiency: < or = 30 ng/mL Sufficiency/Optimal Levels: 31 to 80 ng/mL Toxicity: > 100 ng/mL Test performed by chemiluminescent immunoassay. Performed By: #### P THI, VITD, B1WB ####[address] [phone] CBC and Differentialon 05-25 Abs Baso 0.03 k/uL Normal <0.11 [facility] Abs [place] 0.28 k/uL Normal <0.87 [facility] Abs Neut 2.58 k/uL Normal 1.45-7.50 [facility] Absolute nRBC <0.01 Normal <0.01 [facility] Basophils/100 WBC (Bld) 0.7 % Normal [facility] DTYPE Auto Diff Normal [facility] Eosinophils (Bld) [#/Vol] 0.04 10*3/uL Normal <0.46 [facility] Eosinophils/100 WBC (Bld) 1.0 % Normal [facility] Erythrocyte distribution width (RBC) [Ratio] 13.4 % Normal 11.5-15.0 [facility] Hematocrit (Bld) [Volume fraction] 26.8 % Low 36.0-46.0 [facility] Hemoglobin (Bld) [Mass/Vol] 8.6 g/dL Low 11.5-15.5 [facility] Lymphocytes (Bld) [#/Vol] 1.08 10*3/uL Normal 1.00-4.00 [facility] Lymphocytes/100 WBC (Bld) 26.9 % Normal [facility] MCH 27.7 pG Normal 26.0-34.0 [facility] MCHC (RBC) [Mass/Vol] 32.1 g/dL Normal 30.5-36.0 [facility] MCV (RBC) [Entitic vol] 86.2 fL Normal 80.0-100.0 [facility] Monocytes/100 WBC (Bld) 7.0 % Normal [facility] Neutrophils/100 WBC (Bld) 64.4 % Normal [facility] NRBCs 0.0 /100 WBC Normal 0 [facility] Platelet mean volume (Bld) [Entitic vol] 10.4 fL Normal 9.0-12.7 [facility] Platelets (Bld) [#/Vol] 170 10*3/uL Normal 150-400 [facility] RBC (Bld) [#/Vol] 3.11 10*6/uL Low 3.90-5.20 [facility] WBC (Bld) [#/Vol] 4.02 10*3/uL Normal 3.70-11.00 [facility] CC Profile Ulises SP,MM,EUC For SPT,MMH,EUC use onlyon 05-25-2020 [place] Test Venous Normal [facility] Attempts 1 Normal [facility] Base Excess 3 mmol/L Normal [facility] Comment on above: Result Comment: -2 T O 2 Body temperature 98.6 [degF] Normal [facility] Calcium [Moles/Vol] 1.20 mmol/L Normal 1.09-1.30 [facility] Chloride [Moles/Vol] 108 mmol/L Normal 50-400 [facility] Device None seen Normal [facility] Drawsite Venous Normal [facility] HCO3 (Bld) [Moles/Vol] 28 mmol/L High 22-26 [facility] Hemoglobin (Bld) [Mass/Vol] 8.6 g/dL Low 12-18 [facility] Lactate [Moles/Vol] 1.3 mmol/L Normal 0.7-2.5 [facility] pCO2 46 mm Hg Normal 41-51 [facility] pH (Bld) 7.40 [pH] Normal 7.32-7.42 [facility] pO2 BELOW REPORTABLE RANGE Normal 35-42 [facility] Potassium [Moles/Vol] 3.3 mmol/L Low 3.5-5.1 [facility] Sodium [Moles/Vol] 143 mmol/L Normal 136-146 [facility] CONSULTon 05-25-2020 CONSULT HNO ID: [id number] Author: Raleigh Srivastava DO Service: General Surgery [...] had a recent traumatic brain injury in [facility] and is on seizure medications now. 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 Normal [facility] Comp Metabolic Panelon 05-25 Albumin [Mass/Vol] 3.8 g/dL Normal 3.5-5.0 [facility] ALP [Catalytic activity/Vol] 82 U/L Normal 34-123 [facility] ALT [Catalytic activity/Vol] 6 U/L Low 7-38 [facility] Anion gap [Moles/Vol] 10 mmol/L Normal 0-15 [facility] AST [Catalytic activity/Vol] 14 U/L Normal 13-35 [facility] Bilirubin [Mass/Vol] 0.3 mg/dL Normal 0.2-1.3 [facility] Calcium [Mass/Vol] 8.9 mg/dL Normal 8.5-10.2 [facility] Chloride [Moles/Vol] 107 mmol/L High 97-105 [facility] CO2 [Moles/Vol] 26 mmol/L Normal 22-30 [facility] Creatinine [Mass/Vol] 0.62 mg/dL Normal 0.58-0.96 [facility] eGFR- Amer. >60 Normal [facility] eGFR-All Other Races >60 Normal [facility] Comment on above: Result [...] GFR. Glucose [Mass/Vol] 88 mg/dL Normal 74-99 [facility] Potassium [Moles/Vol] 3.3 mmol/L Low 3.7-5.1 [facility] Protein [Mass/Vol] 6.4 g/dL Normal 6.3-8.0 [facility] Sodium [Moles/Vol] 143 mmol/L Normal 136-144 [facility] Urea nitrogen [Mass/Vol] 10 mg/dL Normal 7-21 [facility] ED NOTEon 05-25-2020 ED NOTE HNO ID: [id number] Author: Chavo Maravilla RN Service: ? Author Type: Registered Nurse Type: ED Notes Filed: 05/25/2020 6:05 PM Note Text: Pt to the floor with caregiver, in stable condition, in NAD. Pt's infusion running without difficulty and pt belongings at bedside. [facility] ED NOTE HNO ID: [id number] Author: Chavo Maravilla RN Service: ? Author Type: Registered Nurse Type: ED Notes Filed: 05/25/2020 6:01 PM Note Text: Report given to Ceasar DIEGO, all questions addressed at this time. [facility] ED NOTE HNO ID: [id number] Author: Chavo Maravilla RN Service: ? Author Type: Registered Nurse Type: ED Notes Filed: 05/25/2020 3:27 PM Note Text: RT notified of CCVBG [facility] ED NOTE HNO ID: [id number] Author: Chavo Maravilla RN Service: ? Author [...] chest. Allergies reviewed and allergy band applied. [facility] ED NOTE HNO ID: [id number] Author: Marycarmen Coffey) BRANDIE Hunt Service: ? Author Type: Registered Nurse Type: ED Notes Filed: 05/25/2020 1:50 PM Note Text: Pt given cup to collect urine specimen [facility] ED NOTE HNO ID: [id number] Author: Flaquita (Medic) Charis Service: General Internal Medicine Author Type: Line Department Supervisor and Worship Pastor Type: ED Notes Filed: 05/25/2020 1:43 PM Note Text: Pt states she sometimes has a rapid heart rate when she stands to walk. States she had a pacemaker placed in March 2020 at . EKG performed and given to Dr. Moreno [facility] ED NOTE HNO ID: [id number] Author: Marycarmen Coffey) BRANDIE Hunt Service: ? Author Type: Registered Nurse Type: ED Notes Filed: 05/25/2020 12:43 PM Note Text: Pt c/o nausea, vomiting, ABD pain for the past 2 weeks. She has a J tube, and when ever she pours liquid into it, she vomits. Normal [facility] ED PROV NOTEon 05-25-2020 ED PROV NOTE HNO ID: [id number] Author: Dennis Spence DO Service: Emergency Medicine [...] nausea and vomiting. She is from the [facility]. She did call her surgeon's service and advised her to come to [facility] to be evaluated. Patient does have a J-tube. She is able to flush her J-tube. However, the patient then vomits. She vomits after oral or J-tube feedings. Again, the patient does not have a stomach. She denies blood in the vomit. It is nonbilious. The patient is on Percocet at home. Describes a traumatic brain injury in January and was seen in the [facility]. 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 Normal [facility] HOSPon 05-25-2020 HOSP Patient:Lea [...] nausea and vomiting. She is from the [facility]. She did call her surgeon's service and advised her to come to [facility] to be evaluated. Patient does have a J-tube. She is able to flush her J-tube. However, the patient then vomits. She vomits after oral or J-tube feedings. Again, the patient does not have a stomach. She denies blood in the vomit. It is nonbilious. The patient is on Percocet at home. Describes a traumatic brain injury in January and was seen in the [place] area. She is now on prophylactic seizure [...] thrombosis of (more content not included)... Normal [facility] Lipaseon 05-25-2020 Lipase [Catalytic activity/Vol] 54 U/L Normal 16-61 [facility] Magnesiumon 05-25-2020 Magnesium [Mass/Vol] 1.9 mg/dL Normal 1.7-2.6 [facility] NURSING PROGon 05-25-2020 NURSING PROG HNO ID: [id number] Author: Mitchel VasquezRnNorth Larry RN Service: Nursing Author Type: Registered Nurse Type: Nursing Progress Note Filed: 05/25/2020 6:27 PM Note Text: Nursing Progress Note Patient Name: Maricarmen Anderson Patient Location: [place] [address] [address] 1815 patient admitted to room [facility]. Pain reported in upper abdomen 03/31 at this time. Nausea also reported. Calling primary MD for admission orders. Patient has j-tube and uses osmolite when able. No other distress noted at this time. Patient denies SOB or CP. This note was completed by: Mitchel Larry RN [facility] NURSING PROG HNO ID: [id number] Author: Michelle VasquezRn) Leatha RN Service: Nursing Author Type: Registered Nurse Type: Nursing Progress Note Filed: 05/25/2020 7:14 PM Note Text: Nursing Progress Note Patient Name: Maricarmen Anderson Patient Location: [place] [address] [address] Transfer Note: Patient transferred into room/unit 721, bed 2 from ED in stable condition. Actions taken: No further actions taken at this time. Will continue to monitor and check with patient. 1912 Nursing admission database completed; HOME [employer]MENT INST[employer]ER medication list updated. This note was completed by: Michelle Zhang RN Normal [facility] Urinalysis with Microscopico n 05-25-2020 Bacteria 1+ /HPF Critically abnormal Negative [facility] Bilirubin, Urine Negative Normal Negative [facility] Cast SEE COMMENT Normal 0 [facility] Comment on above: Result Comment: 0 Clarity (U) Slightly Cloudy Critically abnormal Clear [facility] Color (U) Yellow Normal Yellow [facility] Crystals LM Nom (Urine sed) SEE COMMENT Critically abnormal Negative [facility] Comment on above: Result Comment: 3+ Calcium Oxalate Glucose Ql (U) Negative Normal Negative [facility] Hemoglobin/Blood,Ur Negative Normal Negative [facility] Ketones Ql (U) Trace Critically abnormal Negative [facility] Leukest Trace Critically abnormal Negative [facility] Nitrite Ql (U) Negative Normal Negative [facility] pH (U) 6.0 [pH] Normal 5.0-8.0 [facility] Protein, Urine Negative Normal Negative [facility] RBC 0-3 Normal 0-3 [facility] Specific [place], Ur 1.025 Normal 1.005-1.030 [facility] Urobilinogen Qn (U) 1.0 {José'U}/dL Normal 0.2-1.0 [facility] WBC 0-5 Normal 0-5 [facility] SLEEP CENTER REPORTon 2019 [place] [address] SLEEP STUDY REPORT PATIENT NAME: MARICARMEN ANDERSON : 1980 MED REC NO: [id number] ROOM: ACCOUNT NO: [id number] ADMIT DATE: 01/24/2020 PROVIDER: Roseline Decker SLEEP [...] depression. 4. Please correlate clinically. ROSELINE DECKER СВЕТЛАНА/Susan_LAVELLE_T Doc#: [id number] CC: Roseline Decker Normal [facility] Basic Metabolic [employer] [facility] 01-01 Anion gap [Moles/Vol] 5 mmol/L Normal 0-15 [facility] Calcium [Mass/Vol] 9.2 mg/dL Normal 8.5-10.2 [facility] Chloride [Moles/Vol] 106 mmol/L High 97-105 [facility] CO2 [Moles/Vol] 26 mmol/L Normal 22-30 [facility] Creatinine [Mass/Vol] 0.81 mg/dL Normal 0.58-0.96 [facility] Glucose [Mass/Vol] 106 mg/dL High 74-99 [facility] Potassium [Moles/Vol] 3.8 mmol/L Normal 3.7-5.1 [facility] Sodium [Moles/Vol] 137 mmol/L Normal 136-144 [facility] Urea nitrogen [Mass/Vol] 9 mg/dL Normal 01-09 [facility] CASE MANAGEMon 01-02-2020 CASE MANAGEM HNO ID: [id number] Author: Anaid (Rn) BRANDIE Valencia Service: ? [...] Physician Name/Phone: Dr. Sotelo Other Caregiver Name/Phone: [email or web address] TRANSPORTATION ARRANGEMENTS: Transportation Arrangements: Car ADDITIONAL CONTACT RESOURCES: None Patient surgically cleared for discharge and being discharged to home today on enteral tube feedings. [employer] updated and orders to resume tube feedings sent. SIGNATURE: Anaid Valencia RN PATIENT NAME: Maricarmen Anderson DATE: January 02, 2020 TIME: 1:14 PM PAGER/CONTACT #: [phone] Normal [facility] CNDSon 01-02-2020 CNDS HNO ID: [id number] Author: Clemente Eng Service: General Surgery Author [...] Out FOLLOW-UP APPOINTMENTS ALREADY SCHEDULED WITH A [facility] PROVIDER: No future appointments. ALLERGIES Allergen [...] January 02, 2020 TIME: 12:33 PM Normal [facility] NURSING PROGon 01-02-2020 NURSING PROG HNO ID: [id number] Author: Kimmie VasquezRn) BRANDIE Galo Service: Nursing Author Type: Registered Nurse Type: Nursing Progress Note Filed: 01/02/2020 12:27 PM Note Text: Nursing Progress Note Patient Name: Maricarmen Anderson [facility]: [facility] [place] Daily Note: 0730: received report from Silvia [...] was completed by: Kimmie Galo RN Normal [facility] Basic Metabolic [place] 12-31 Anion gap [Moles/Vol] 6 mmol/L Normal 0-15 [facility] Calcium [Mass/Vol] 9.0 mg/dL Normal 8.5-10.2 [facility] Chloride [Moles/Vol] 105 mmol/L Normal 97-105 [facility] CO2 [Moles/Vol] 26 mmol/L Normal 22-30 [facility] Creatinine [Mass/Vol] 0.73 mg/dL Normal 0.58-0.96 [facility] Glucose [Mass/Vol] 92 mg/dL Normal 74-99 [facility] Potassium [Moles/Vol] 3.7 mmol/L Normal 3.7-5.1 [facility] Sodium [Moles/Vol] 137 mmol/L Normal 136-144 [facility] Urea nitrogen [Mass/Vol] 8 mg/dL Normal 7-21 [facility] NURSING PROGon 01-01-2020 NURSING PROG HNO ID: [id number] Author: Silvia (Rn) BRANDIE Marquez Service: ? Author Type: Registered Nurse Type: Nursing Progress Note Filed: 01/02/2020 3:03 AM Note Text: Nursing Progress Note Patient Name: Maricarmen Anderson Patient Location: /- Daily Note: 1906: Received report from BRANDIE Gaxiola. Patient awake and resting in bed. Call light in reach. Will continue to monitor. 225: Assessment completed. See NPR. Patient in stable condition. All needs are met at this time. Call light in reach. Will continue to monitor. 0200: Patient observed asleep. Eyes closed, even respirations. Bed in lowest position, call light in reach. Will continue to monitor This note was completed by: Silvia Marquez RN [facility] NURSING PROG HNO ID: [id number] Author: Khalida Coffey) BRANDIE Mendes Service: Nursing Author Type: Registered Nurse Type: Nursing Progress Note Filed: 01/01/2020 7:23 PM Note Text: Nursing Progress Note Patient Name: Maricarmen Anderson Patient Location: [facility]/ [place] Daily Note: 0736 Resumed care for the patient, received updates from Tiny DIEGO. 0745 Tube feed increased to 40 cc/hr. 15 Assessment unchanged as charted. Safety maintained. 1400 Tube feed increased to 50 cc/hr, patient tolerating them well. 1919 Report given to Silvia DIEGO. This note was completed by: Khalida Mendes RN [facility] ALLIED HEALTHon 12-31-2019 ALLIED HEALTH HNO ID: [id number] Author: Uzair Hurst (Tech) Service: Radiology Author Type: Worship Pastor Type: Allied Health Filed: 12/31/2019 12:47 AM [...] Hurst December 31, 2019 12:46 AM Normal [facility] Basic Metabolic [place] 12-30 Anion gap [Moles/Vol] 8 mmol/L Normal 0-15 [facility] Calcium [Mass/Vol] 8.9 mg/dL Normal 8.5-10.2 [facility] Chloride [Moles/Vol] 105 mmol/L Normal 97-105 [facility] CO2 [Moles/Vol] 25 mmol/L Normal 22-30 [facility] Creatinine [Mass/Vol] 0.62 mg/dL Normal 0.58-0.96 [facility] eGFR- Amer. >60 Normal [facility] eGFR-All Other Races >60 Normal [facility] Comment on above: Result [...] GFR. Glucose [Mass/Vol] 81 mg/dL Normal 74-99 [facility] Potassium [Moles/Vol] 3.6 mmol/L Low 3.7-5.1 [facility] Sodium [Moles/Vol] 138 mmol/L Normal 136-144 [facility] Urea nitrogen [Mass/Vol] 9 mg/dL Normal 7-21 [facility] CBCon 12-31-2019 Absolute nRBC <0.01 Normal <0.01 [facility] Erythrocyte distribution width (RBC) [Ratio] 13.2 % Normal 11.5-15.0 [facility] Hematocrit (Bld) [Volume fraction] 28.7 % Low 36.0-46.0 [facility] Hemoglobin (Bld) [Mass/Vol] 9.3 g/dL Low 11.5-15.5 [facility] MCH 29.9 pG Normal 26.0-34.0 [facility] MCHC (RBC) [Mass/Vol] 32.4 g/dL Normal 30.5-36.0 [facility] MCV (RBC) [Entitic vol] 92.3 fL Normal 80.0-100.0 [facility] Platelet mean volume (Bld) [Entitic vol] 10.7 fL Normal 9.0-12.7 [facility] Platelets (Bld) [#/Vol] 151 10*3/uL Normal 150-400 [facility] RBC (Bld) [#/Vol] 3.11 10*6/uL Low 3.90-5.20 [facility] WBC (Bld) [#/Vol] 5.08 10*3/uL Normal 3.70-11.00 [facility] CBC and Differentialon 12-30 Abs Baso 0.03 k/uL Normal <0.11 [facility] Abs [place] 0.49 k/uL Normal <0.87 [facility] Abs Neut 3.99 k/uL Normal 1.45-7.50 [facility] Absolute nRBC <0.01 Normal <0.01 [facility] Basophils/100 WBC (Bld) 0.5 % Normal [facility] DTYPE Auto Diff Normal [facility] Eosinophils (Bld) [#/Vol] 0.04 10*3/uL Normal <0.46 [facility] Eosinophils/100 WBC (Bld) 0.6 % Normal [facility] Erythrocyte distribution width (RBC) [Ratio] 13.1 % Normal 11.5-15.0 [facility] Hematocrit (Bld) [Volume fraction] 30.3 % Low 36.0-46.0 [facility] Hemoglobin (Bld) [Mass/Vol] 9.8 g/dL Low 11.5-15.5 [facility] Lymphocytes (Bld) [#/Vol] 1.70 10*3/uL Normal 1.00-4.00 [facility] Lymphocytes/100 WBC (Bld) 27.2 % Normal [facility] MCH 29.6 pG Normal 26.0-34.0 [facility] MCHC (RBC) [Mass/Vol] 32.3 g/dL Normal 30.5-36.0 [facility] MCV (RBC) [Entitic vol] 91.5 fL Normal 80.0-100.0 [facility] Monocytes/100 WBC (Bld) 7.8 % Normal [facility] Neutrophils/100 WBC (Bld) 63.9 % Normal [facility] NRBCs 0.0 /100 WBC Normal 0 [facility] Platelet mean volume (Bld) [Entitic vol] 11.0 fL Normal 9.0-12.7 [facility] Platelets (Bld) [#/Vol] 177 10*3/uL Normal 150-400 [facility] RBC (Bld) [#/Vol] 3.31 10*6/uL Low 3.90-5.20 [facility] WBC (Bld) [#/Vol] 6.26 10*3/uL Normal 3.70-11.[address] [facility] [address] ABD/PEL W IVCONon 11-[address] ABD/PEL W IVCON * * *Final Report* * * DATE OF EXAM: Dec 31 2019 12:49AM [facility] 0530 - CT ABD/PEL W IVCON / [...] Dec 31 2019 1:31AM EST [id number] Normal [facility] Comp Metabolic Panelon 12-30 Albumin [Mass/Vol] 3.8 g/dL Normal 3.5-5.0 [facility] ALP [Catalytic activity/Vol] 70 U/L Normal 34-123 [facility] ALT [Catalytic activity/Vol] 9 U/L Normal 7-38 [facility] Anion gap [Moles/Vol] 7 mmol/L Normal 0-15 [facility] AST [Catalytic activity/Vol] 15 U/L Normal 13-35 [facility] Bilirubin [Mass/Vol] 0.3 mg/dL Normal 0.2-1.3 [facility] Calcium [Mass/Vol] 9.1 mg/dL Normal 8.5-10.2 [facility] Chloride [Moles/Vol] 105 mmol/L Normal 97-105 [facility] CO2 [Moles/Vol] 26 mmol/L Normal 22-30 [facility] Creatinine [Mass/Vol] 0.60 mg/dL Normal 0.58-0.96 [facility] eGFR- Amer. >60 Normal [facility] eGFR-All Other Races >60 Normal [facility] Comment on above: Result [...] GFR. Glucose [Mass/Vol] 84 mg/dL Normal 74-99 [facility] Potassium [Moles/Vol] 3.4 mmol/L Low 3.7-5.1 [facility] Protein [Mass/Vol] 6.2 g/dL Low 6.3-8.0 [facility] Sodium [Moles/Vol] 138 mmol/L Normal 136-144 [facility] Urea nitrogen [Mass/Vol] 11 mg/dL Normal 7-21 [facility] Coronavirus 2019on 0 SARS-CoV-2 (COVID-19) RNA CRISTINA+probe Ql (Unsp spec) Nasopharyngeal Swab Normal [facility] Comment on above: Performed By: #### P REALB, TRANSF #### [facility] [address] [place] [id number] SARS-CoV-2 (COVID-19) RNA CRISTINA+probe Ql (Unsp spec) Negative Normal Negative for COVID19 (SARS CoV2) by PCR. [facility] Comment on above: Result Comment: This test was developed and its performance characteristics determined by [facility]'s [facility] [place]. This test has been authorized by FDA [...] Performed By: #### P REALB, TRANSF #### [facility] [address] [place], [place] [address] ED NOTEon 12-31-2019 ED NOTE HNO ID: [id number] Author: Paul VasquezRn) BRANDIE Culver Service: Emergency Medicine Author Type: Registered Nurse Type: ED Notes Filed: 12/31/2019 12:28 AM Note Text: Patient to CT and then stable for admission to 9th floor, report called to BRANDIE Villaseñor. Patient transported with medic, stable at time of transfer from ED [facility] ED NOTE HNO ID: [id number] Author: Paul (Rn) BRANDIE Culver Service: Emergency Medicine Author Type: Registered Nurse Type: ED Notes Filed: 12/30/2019 11:43 PM Note Text: Patient finished contrast, CT aware [facility] ED NOTE HNO ID: [id number] Author: Paul (Rn) BRANDIE Culver Service: Emergency Medicine Author Type: Registered Nurse Type: ED Notes Filed: 12/30/2019 10:55 PM Note Text: Urine obtained and sent [facility] ED NOTE HNO ID: [id number] Author: Paul (Rn) BRANDIE Culver Service: Emergency Medicine Author Type: Registered Nurse Type: ED Notes Filed: 12/30/2019 10:55 PM Note Text: Covid swab obtained, placed on ice and walked to lab by [facility] ED PROV NOTEon 12-31-2019 ED PROV NOTE HNO ID: [id number] Author: Milton Kate MD Service: Emergency Medicine [...] III, BMI 40-49.9 (morbid obesity) ([facility]) - Port-A-Cath in place patients right [...] and written (more content not included)... Normal [facility] Ferritinon 12-31-2019 Ferritin [Mass/Vol] 10.5 ng/mL Low 14.7-205.1 [facility] Ferritin [Mass/Vol] 13.6 ng/mL Low 14.7-205.1 [facility] Comment on above: Performed By: #### P REALB, TRANSF #### [facility] [address] [place] [address] HISTORY PHYSICALon 0 HISTORY PHYSICAL HNO ID: [id number] Author: Raleigh Srivastava DO Service: General Surgery [...] PPI to daily, appreciate nutrition help. 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 Normal [facility] Lipaseon 12-31-2019 Lipase [Catalytic activity/Vol] 33 U/L Normal 16-61 [facility] Magnesiumon 12-31-2019 Magnesium [Mass/Vol] 1.8 mg/dL Normal 1.7-2.6 [facility] NURSING PROGon 12-31-2019 NURSING PROG HNO ID: [id number] Author: Tiny (Rn) BRANDIE Chamberlain Service: Nursing Author Type: Registered Nurse Type: Nursing Progress Note Filed: 01/01/2020 3:51 AM Note Text: Nursing Progress Note Patient Name: Maricarmen Anderson Patient Location: [place] [address]/ [place] [address] Received report from prior RN. Patient is in the bed resting with no signs of distress. All personal possessions are within reach. Needs are met at this time. Bed is low and locked. Bed alarm is on. 1920 Requested phenergan from pharmacy. 0000 Tube feed increased to 30 ml/hr 0200 pt sleeping This note was completed by: Tiny Chamberlain RN [facility] NURSING PROG HNO ID: [id number] Author: Khalida VasquezRn) BRANDIE Mendes Service: Nursing Author Type: Registered Nurse Type: Nursing Progress Note Filed: 12/31/2019 7:28 PM Note Text: Nursing Progress Note Patient Name: Maricarmen Anderson [place] Daily Note: 07 Received report from Sheyla DIEGO. 0850 Assessment completed as charted. Patient complains of nausea and pain. Call light within reach and bed in lowest position will continue to monitor. 1100 Diet advanced to full liquids. 1115 Tube feed started. 1730 Tube feed increased to 20 cc/hr. 5 Report given to Tiny DIEGO. This note was completed by: Khalida Mendes RN [facility] NURSING PROG HNO ID: [id number] Author: Sheyla Martinez Service: ? Author Type: Registered Nurse Type: Nursing Progress Note Filed: 12/31/2019 5:17 AM Note Text: Nursing Progress Note Patient Name: Maricarmen Anderson [place] Location[place] Transfer Note: Patient transferred into room/unit 906 in stable condition. Actions taken: No futher actions taken at this time. Will continue to monitor and check with patient. Patient belongings with patient This note was completed by: Sheyla Martinez RN [facility] NURSING PROG HNO ID: [id number] Author: Sheyla Martinez Service: ? Author Type: Registered Nurse Type: Nursing Progress Note Filed: 12/31/2019 5:16 AM Note Text: Nursing Progress Note Patient Name: Maricarmen [place] Location[place] Daily Note: 0027 received report from STEVE, Paul, patient going to CT before coming to floor 0045 patient on floor 0048assessment complete, see NPR. Patient's belongings, call light are with in reach. Bed is locked and in lowest position. Patient in no distress at this time. This note was completed by: Sheyla Martinez RN [facility] NUTRITIONon 12-31-2019 NUTRITION HNO ID: [id number] Author: Molly Vázquez Service: Nutrition Therapy Author Type: Registered Dietitian Type: Nutrition Filed: 12/31/2019 11:54 AM Note Text: NUTRITION THERAPY INITIAL ASSESSMENT SERVICE DATE: 12/31/2019 SERVICE TIME: 11:52 AM Nutrition Assessment: Recommended Malnutrition Diagnosis: No Malnutrition Identified Nutrition Diagnosis: Problem: Suboptimal protein/energy intake Related to: Inability to consume sufficient nutrients As evidenced by: Patient/family self-report;Nausea;Vomiti ng Estimated kilocalorie needs: 7174-2263 Calorie Calculation Method: 15-20 kcals/kg Estimated protein needs (grams): 71-89 Grams protein determined by: 1.2-1.5 g/kg;[place] Body Weight Care Plan: Continue current diet [...] of Inflammation: Chronic condition SIGNATURE: Molly Vázquez, MS,RD,LD,[facility] PATIENT NAME: Maricarmen Anderson DATE: December 31, 2019 TIME: 11:51 AM PAGER: [phone] Normal [facility] Phosphoruson 12-31-2019 Phosphate [Mass/Vol] 3.7 mg/dL Normal 2.7-4.8 [facility] Prealbuminon 12-31-2019 Prealbumin [Mass/Vol] 20 mg/dL Normal 17-36 [facility] Comment on above: Performed By: #### P REALB, TRANSF #### [facility] [address] [place] [address] Transferrinon 12-31-2019 Transferrin [Mass/Vol] 266 mg/dL Normal 200-360 So [facility] Comment on above: Performed By: #### P REALB, TRANSF #### [facility] [address] [place] [address] Urinalysis with Microscopico n 12-31-2019 Amorphous Crystal 2+ Normal [facility] Bacteria 4+ /HPF Critically abnormal Negative [facility] Bilirubin, Urine Negative Normal Negative [facility] Cast SEE COMMENT Normal 0 [facility] Comment on above: Result Comment: 0 Clarity (U) Cloudy Critically abnormal Clear [facility] Color (U) Yellow Normal Yellow [facility] Epithelial cells LM Ql (Urine sed) SEE COMMENT Critically abnormal Occasional [facility] Comment on above: Result Comment: 4+ Squamous Epithelial Cells Glucose Ql (U) Negative Normal Negative [facility] Hemoglobin/Blood,Ur Negative Normal Negative [facility] Ketones Ql (U) Trace Critically abnormal Negative [facility] Leukest 2+ Critically abnormal Negative [facility] Nitrite Ql (U) Negative Normal Negative [facility] pH (U) 7.0 [pH] Normal 5.0-8.0 [facility] Protein, Urine Negative Normal Negative [facility] RBC 0-3 Normal 0-3 [facility] Specific [place], Ur 1.025 Normal 1.005-1.030 [facility] Urobilinogen Qn (U) 1.0 {José'U}/dL Normal 0.2-1.0 [facility] WBC 6-10 Critically abnormal 0-5 [facility] PROGRESSon 09-19-2019 PROGRESS HNO ID: [id number] Author: Emelia Baldwin Service: ? Author Type: [...] 6 hours as needed. OBJECTIVE: PHYSICAL EXAM: [facility] 05/18/2019 GENERAL APPEARANCE: Well nourished, well [...] SIGNATURE: Emelia Baldwin MD PATIENT NAME: Maricarmen [place] DATE: September 19, 2019 TIME: 1:00 PM PAGER: Emelia Baldwin MD [facility] 09-13-2019 [facility] Telephone (NSFRVW) ----- MARICARMEN ANDERSON ([id number]) 1980 [facility] Date Time Provider Department 09/13/19 EMELIA BALDWIN NSFRVW During your visit today, we recorded the following information about you: Robert Ann [facility] 09/13/2019 3:55 PM Signed Patient has been identified by name and date of : Yes 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 Katelynn Joseph Sec 09/27/2019 2:21 PM Addendum Duane, from [facility], called again, last call 09-16-19, what is the status of correction disability forms for patient? Allergies As of Date: 09/13/2019 Noted Allergy Reaction DILAUDID (HYDROMORPHONE (BULK)) 03/28/2019 9 - Itching Date Reviewed: 08/14/2019 Reviewed by: Saskia (Rn) BRANDIE Sharpe - Fully Assessed Reason for Visit: correction disability [Other] Prescriptions as of 09/13/2019 Sig: [...] Encounter Status:Closed by YONG PADILLA on 09/16/19 [facility] 05-13-2019 ALLIED HEALTH HNO ID: [id number] Author: Uzair Angulo (Tech) Service: Radiology Author Type: Worship Pastor Type: Allied Health Filed: 05/13/2019 10:22 AM [...] Bill King May 13, 2019 10:22 AM [facility] MRI CERVICAL SPINE WO IVCONo n 05-13-2019 MRI CERVICAL SPINE WO IVCON * * *Final Report* * * DATE OF EXAM: May 13 2019 10:50AM [facility] 0297 - MRI CERVICAL SPINE WO [...] vertebrae with counting from the craniocervical junction. Human Resources Representative: LISA Transcribe Date/Time: May 13 2019 12:52P Dictated by : JON SOBORNE MD This examination was interpreted and the report reviewed and electronically signed by: JON OSBORNE MD on May 13 2019 1:16PM EST [id number] Normal [facility] Vital Signs Date Time Vital Sign Value Performing Clinician Facility 11-17-2024 13:40-0400 Diastolic blood pressure 76 mm[Hg] Viktor Sotelo MD Work Phone: [facility] 11-17-2024 13:40-0400 Heart rate 84 /min Viktor Sotelo MD Work Phone: [facility] 11-17-2024 13:40-0400 Respiratory rate 16 /min Viktor Sotelo MD Work Phone: [facility] 11-17-2024 13:40-0400 SaO2% (BldA) [Mass fraction] 98 % Viktor Sotelo MD Work Phone: [facility] 11-17-2024 13:40-0400 Systolic blood pressure 120 mm[Hg] Viktor Sotelo MD Work Phone: [facility] 11-17-2024 12:55-0400 Body temperature 97.3 [degF] Viktor Sotelo MD Work Phone: [facility] 11-17-2024 12:55-0400 Inhaled oxygen flow rate 8 L/min Viktor Sotelo MD Work Phone: [facility] 11-17-2024 09:40-0400 Body height 167.64 cm Viktor Sotelo MD Work Phone: [facility] 11-17-2024 09:40-0400 Body weight 117.93 kg Viktor Sotelo MD Work Phone: [facility] 11-07-2024 15:00-0400 Body height 167.64 cm Viktor Sotelo MD Work Phone: [facility] 11-07-2024 15:00-0400 Body mass index (BMI) [Ratio] 41.9 kg/m2 Viktor Sotelo MD Work Phone: [facility] 11-07-2024 15:00-0400 Body temperature 97.5 [degF] Viktor Sotelo MD Work Phone: [facility] 11-07-2024 15:00-0400 Body weight 117.93 kg Viktor Sotelo MD Work Phone: [facility] 11-07-2024 15:00-0400 Diastolic blood pressure 72 mm[Hg] Viktor Sotelo MD Work Phone: [facility] 11-07-2024 15:00-0400 Heart rate 75 /min Viktor Sotelo MD Work Phone: [facility] 11-07-2024 15:00-0400 SaO2% (BldA) [Mass fraction] 99 % Viktor Sotelo MD Work Phone: [facility] 11-07-2024 15:00-0400 Systolic blood pressure 120 mm[Hg] Viktor Sotelo MD Work Phone: [facility] 06-10-2024 09:33-0500 Body height 167.64 cm Viktor Sotelo MD Work Phone: [facility] 06-10-2024 09:33-0500 Body mass index (BMI) [Ratio] 43.4 kg/m2 Viktor Sotelo MD Work Phone: [facility] 06-10-2024 09:33-0500 Body weight 122.01 kg Viktor Sotelo MD Work Phone: [facility] 06-10-2024 09:33-0500 Diastolic blood pressure 66 mm[Hg] Viktor Sotelo MD Work Phone: [facility] 06-10-2024 09:33-0500 Heart rate 93 /min Viktor Sotelo MD Work Phone: [facility] 06-10-2024 09:33-0500 Systolic blood pressure 93 mm[Hg] Viktor Sotelo MD Work Phone: [facility] 11-12-2023 13:23-0400 Body height 167.64 cm MD Viktor Sotelo Work Phone: [facility] 11-12-2023 13:23-0400 Body mass index (BMI) [Ratio] 41.1 kg/m2 MD Viktor Sotelo Work Phone: [facility] 11-12-2023 13:23-0400 Body weight 115.66 kg MD Viktor Sotelo Work Phone: [facility] 11-12-2023 13:23-0400 Diastolic blood pressure 73 mm[Hg] MD Viktor Sotelo Work Phone: [facility] 11-12-2023 13:23-0400 Heart rate 81 /min MD Viktor Sotelo Work Phone: [facility] 11-12-2023 13:23-0400 Systolic blood pressure 108 mm[Hg] MD Viktor Sotelo Work Phone: [facility] 01-21-2023 06:55-0400 Body height 167.64 cm MD Viktor Sotelo Work Phone: [facility] 01-21-2023 06:55-0400 Body weight 108.86 kg MD Viktor Sotelo Work Phone: [facility] 01-20-2023 08:36-0400 Body height 167.64 cm Viktor Sotelo Work Phone: [facility] [address] DO Work Phone: 01-20-2023 08:36-0400 Body mass index (BMI) [Ratio] 39.06 kg/m2 Viktor Sotelo Work Phone: [facility] [address] DO Work Phone: 01-20-2023 08:36-0400 Body surface area Derived from formula 2.17 m2 Viktor Sotelo Work Phone: [facility] [address] DO Work Phone: 01-20-2023 08:36-0400 Body weight 109.77 kg Viktor Sotelo Work Phone: [facility] [address] DO Work Phone: 01-20-2023 08:36-0400 Diastolic blood pressure 80 mm[Hg] Viktor Sotelo Work Phone: [facility] [address] DO Work Phone: 01-20-2023 08:36-0400 Respiratory rate 60 /min Viktor Sotelo Work Phone: [facility] [address] DO Work Phone: 01-20-2023 08:36-0400 Systolic blood pressure 122 mm[Hg] Viktor Sotelo Work Phone: [facility] [address] DO Work Phone: 12-15-2022 09:00-0400 Body weight 109.04 kg MD Viktor Sotelo Work Phone: [facility] 12-15-2022 07:30-0400 Body temperature 97.9 [degF] MD Viktor Sotelo Work Phone: [facility] 12-15-2022 07:30-0400 Diastolic blood pressure 72 mm[Hg] MD Viktor Sotelo Work Phone: [facility] 12-15-2022 07:30-0400 Heart rate 81 /min MD Viktor Sotelo Work Phone: [facility] 12-15-2022 07:30-0400 SaO2% (BldA) [Mass fraction] 100 % MD Viktor Sotelo Work Phone: [facility] 12-15-2022 07:30-0400 Systolic blood pressure 115 mm[Hg] MD Viktor Sotelo Work Phone: [facility] 12-14-2022 20:18-0400 Respiratory rate 16 /min MD Viktor Sotelo Work Phone: [facility] 12-12-2022 13:58-0400 Body height 167.64 cm MD Viktor Sotelo Work Phone: [facility] 12-11-2022 20:49-0400 Diastolic blood pressure 87 mm[Hg] MD Viktor Sotelo Work Phone: [facility] 12-11-2022 20:49-0400 Heart rate 70 /min MD Viktor Sotelo Work Phone: [facility] 12-11-2022 20:49-0400 Respiratory rate 18 /min MD Viktor Sotelo Work Phone: [facility] 12-11-2022 20:49-0400 SaO2% (BldA) [Mass fraction] 99 % MD Viktor Sotelo Work Phone: [facility] 12-11-2022 20:49-0400 Systolic blood pressure 132 mm[Hg] MD Viktor Sotelo Work Phone: [facility] 12-11-2022 17:43-0400 Body height 167.64 cm MD Viktor Sotelo Work Phone: [facility] 12-11-2022 17:43-0400 Body temperature 97.7 [degF] MD Viktor Sotelo Work Phone: [facility] 12-11-2022 17:43-0400 Body weight 108.86 kg MD Viktor Sotelo Work Phone: [facility] 11-01-2022 07:24-0400 Body temperature 97.6 [degF] MD Viktor Sotelo Work Phone: [facility] 11-01-2022 07:24-0400 Diastolic blood pressure 66 mm[Hg] MD Viktor Sotelo Work Phone: [facility] 11-01-2022 07:24-0400 Heart rate 67 /min MD Viktor Sotelo Work Phone: [facility] 11-01-2022 07:24-0400 Respiratory rate 16 /min MD Viktor Sotelo Work Phone: [facility] 11-01-2022 07:24-0400 SaO2% (BldA) [Mass fraction] 95 % MD Viktor Sotelo Work Phone: [facility] 11-01-2022 07:24-0400 Systolic blood pressure 104 mm[Hg] MD Viktor Sotelo Work Phone: [facility] 10-31-2022 14:36-0400 Body height 167.64 cm MD Viktor Sotelo Work Phone: [facility] 10-28-2022 19:02-0400 Body weight 110.67 kg MD Viktor Sotelo Work Phone: [facility] 10-28-2022 17:56-0400 Diastolic blood pressure 66 mm[Hg] MD Viktor Sotelo Work Phone: [facility] 10-28-2022 17:56-0400 Heart rate 57 /min MD Viktor Sotelo Work Phone: [facility] 10-28-2022 17:56-0400 Respiratory rate 16 /min MD Viktor Sotelo Work Phone: [facility] 10-28-2022 17:56-0400 SaO2% (BldA) [Mass fraction] 97 % MD Viktor Sotelo Work Phone: [facility] 10-28-2022 17:56-0400 Systolic blood pressure 132 mm[Hg] MD Viktor Sotelo Work Phone: [facility] 10-28-2022 14:47-0400 Body height 167.64 cm MD Viktor Sotelo Work Phone: [facility] 10-28-2022 14:47-0400 Body temperature 97.8 [degF] MD Viktor Soteol Work Phone: [facility] 10-28-2022 14:47-0400 Body weight 111.25 kg MD Viktor Sotelo Work Phone: [facility] 10-18-2022 19:10-0400 Diastolic blood pressure 84 mm[Hg] MD Viktor Sotelo Work Phone: [facility] 10-18-2022 19:10-0400 Heart rate 71 /min MD Viktor Sotelo Work Phone: [facility] 10-18-2022 19:10-0400 Respiratory rate 18 /min MD Viktor Sotelo Work Phone: [facility] 10-18-2022 19:10-0400 SaO2% (BldA) [Mass fraction] 97 % MD Viktor Sotelo Work Phone: [facility] 10-18-2022 19:10-0400 Systolic blood pressure 141 mm[Hg] MD Viktor Sotelo Work Phone: [facility] 10-18-2022 16:53-0400 Body temperature 98 [degF] MD Viktor Sotelo Work Phone: [facility] 10-18-2022 16:51-0400 Body height 167.64 cm MD Viktor Sotelo Work Phone: [facility] 10-18-2022 16:51-0400 Body weight 112 kg MD Viktor Sotelo Work Phone: [facility] 09-28-2022 22:35-0400 Diastolic blood pressure 81 mm[Hg] MD Viktor Sotelo Work Phone: [facility] 09-28-2022 22:35-0400 Heart rate 97 /min MD Viktor Sotelo Work Phone: [facility] 09-28-2022 22:35-0400 Respiratory rate 18 /min MD Viktor Sotelo Work Phone: [facility] 09-28-2022 22:35-0400 SaO2% (BldA) [Mass fraction] 96 % MD Viktor Sotelo Work Phone: [facility] 09-28-2022 22:35-0400 Systolic blood pressure 131 mm[Hg] MD Viktor Sotelo Work Phone: [facility] 09-28-2022 21:15-0400 Body temperature 100.7 [degF] MD Viktor Sotelo Work Phone: [facility] 09-28-2022 19:07-0400 Body height 167.64 cm MD Viktor Sotelo Work Phone: [facility] 09-28-2022 19:07-0400 Body weight 114 kg MD Viktor Sotelo Work Phone: [facility] 09-07-2022 15:07-0400 Body temperature 97.8 [degF] MD Viktor Sotelo Work Phone: [facility] 09-07-2022 15:07-0400 Diastolic blood pressure 60 mm[Hg] MD Viktor Sotelo Work Phone: [facility] 09-07-2022 15:07-0400 Heart rate 78 /min MD Viktor Sotelo Work Phone: [facility] 09-07-2022 15:07-0400 SaO2% (BldA) [Mass fraction] 96 % MD Viktor Sotelo Work Phone: [facility] 09-07-2022 15:07-0400 Systolic blood pressure 100 mm[Hg] MD Viktor Sotelo Work Phone: [facility] 09-07-2022 07:30-0400 Respiratory rate 16 /min MD Viktor Sotelo Work Phone: [facility] 09-04-2022 14:15-0400 Body height 167.64 cm MD Viktor Sotelo Work Phone: [facility] 09-04-2022 02:40-0400 Body weight 111.13 kg MD Viktor Sotelo Work Phone: [facility] 08-13-2022 08:18-0500 Body temperature 98.1 [degF] MD Viktor Sotelo Work Phone: [facility] 08-13-2022 08:18-0500 Diastolic blood pressure 82 mm[Hg] MD Viktor Sotelo Work Phone: [facility] 08-13-2022 08:18-0500 Heart rate 60 /min MD Viktor Sotelo Work Phone: [facility] 08-13-2022 08:18-0500 Respiratory rate 16 /min MD Viktor Sotelo Work Phone: [facility] 08-13-2022 08:18-0500 SaO2% (BldA) [Mass fraction] 96 % MD Viktor Sotelo Work Phone: [facility] 08-13-2022 08:18-0500 Systolic blood pressure 126 mm[Hg] MD Viktor Sotelo Work Phone: [facility] 08-11-2022 21:50-0500 Body height 167.64 cm MD Viktor Sotelo Work Phone: [facility] 08-11-2022 21:50-0500 Body weight 114.75 kg MD Viktor Sotelo Work Phone: [facility] 08-05-2022 09:27-0500 Body temperature 98.1 [degF] MD Viktor Sotelo Work Phone: [facility] 08-05-2022 09:27-0500 Respiratory rate 16 /min MD Viktor Sotelo Work Phone: [facility] 08-05-2022 09:07-0500 Diastolic blood pressure 74 mm[Hg] MD Viktor Sotelo Work Phone: [facility] 08-05-2022 09:07-0500 Heart rate 83 /min MD Viktor Sotelo Work Phone: [facility] 08-05-2022 09:07-0500 Systolic blood pressure 124 mm[Hg] MD Viktor Sotelo Work Phone: [facility] 08-05-2022 09:05-0500 Body height 167.64 cm MD Viktor Sotelo Work Phone: [facility] 08-05-2022 09:05-0500 Body weight 115.21 kg MD Viktor Sotelo Work Phone: [facility] 08-02-2022 12:30-0500 Diastolic blood pressure 79 mm[Hg] MD Viktor Sotelo Work Phone: [facility] 08-02-2022 12:30-0500 Heart rate 68 /min MD Viktor Sotelo Work Phone: [facility] 08-02-2022 12:30-0500 Systolic blood pressure 143 mm[Hg] MD Viktor Sotelo Work Phone: [facility] 08-02-2022 12:15-0500 Respiratory rate 18 /min MD Viktor Sotelo Work Phone: [facility] 08-02-2022 10:30-0500 Body temperature 97.2 [degF] MD Viktor Sotelo Work Phone: [facility] 08-02-2022 08:36-0500 SaO2% (BldA) [Mass fraction] 94 % MD Viktor Sotelo Work Phone: [facility] 08-01-2022 22:01-0500 Body height 167.64 cm MD Viktor Sotelo Work Phone: [facility] 08-01-2022 22:01-0500 Body weight 115.21 kg MD Viktor Sotelo Work Phone: [facility] 07-22-2022 10:12-0500 Body height 167.64 cm Viktor Sotelo Work Phone: [facility] [address] DO Work Phone: 07-22-2022 10:12-0500 Body mass index (BMI) [Ratio] 41.8 kg/m2 Viktor Sotelo Work Phone: [facility] [address] DO Work Phone: 07-22-2022 10:12-0500 Body surface area Derived from formula 2.23 m2 Viktor Sotelo Work Phone: [facility] [address] DO Work Phone: 07-22-2022 10:12-0500 Body weight 117.48 kg Viktor Sotelo Work Phone: [facility] [address] DO Work Phone: 07-22-2022 10:12-0500 Diastolic blood pressure 72 mm[Hg] Viktor Sotelo Work Phone: [facility] [address] DO Work Phone: 07-22-2022 10:12-0500 Heart rate 73 /min Viktor Sotelo Work Phone: [facility] [address] DO Work Phone: 07-22-2022 10:12-0500 Systolic blood pressure 114 mm[Hg] Viktor Sotelo Work Phone: [facility] [address] DO Work Phone: 07-17-2022 15:30-0500 Body temperature 97.9 [degF] MD Viktor Sotelo Work Phone: [facility] 07-17-2022 15:30-0500 Diastolic blood pressure 68 mm[Hg] MD Viktor Sotelo Work Phone: [facility] 07-17-2022 15:30-0500 Heart rate 78 /min MD Viktor Sotelo Work Phone: [facility] 07-17-2022 15:30-0500 Respiratory rate 18 /min MD Viktor Sotelo Work Phone: [facility] 07-17-2022 15:30-0500 SaO2% (BldA) [Mass fraction] 100 % MD Vitkor Sotelo Work Phone: [facility] 07-17-2022 15:30-0500 Systolic blood pressure 149 mm[Hg] MD Viktor Sotelo Work Phone: [facility] 07-16-2022 16:29-0500 Body height 167.64 cm MD Viktor Sotelo Work Phone: [facility] 07-15-2022 13:12-0500 Body weight 115.66 kg MD Viktor Sotelo Work Phone: [facility] 07-15-2022 10:53-0500 Body height 167.64 cm MD Viktor Sotelo Work Phone: [facility] 07-15-2022 10:53-0500 Body temperature 98.7 [degF] MD Viktor Sotelo Work Phone: [facility] 07-15-2022 10:53-0500 Body weight 115.85 kg MD Viktor Sotelo Work Phone: [facility] 07-15-2022 10:53-0500 Diastolic blood pressure 80 mm[Hg] MD Viktor Sotelo Work Phone: [facility] 07-15-2022 10:53-0500 Heart rate 72 /min MD Viktor Sotelo Work Phone: [facility] 07-15-2022 10:53-0500 Respiratory rate 20 /min MD Viktor Sotelo Work Phone: [facility] 07-15-2022 10:53-0500 SaO2% (BldA) [Mass fraction] 98 % MD Viktor Sotelo Work Phone: [facility] 07-15-2022 10:53-0500 Systolic blood pressure 149 mm[Hg] MD Viktor Sotelo Work Phone: [facility] 07-09-2022 13:38-0500 Diastolic blood pressure 71 mm[Hg] MD Viktor Sotelo Work Phone: [facility] 07-09-2022 13:38-0500 Heart rate 85 /min MD Viktor Sotelo Work Phone: [facility] 07-09-2022 13:38-0500 Systolic blood pressure 109 mm[Hg] MD Viktor Sotelo Work Phone: [facility] 07-09-2022 11:35-0500 Body temperature 98.1 [degF] MD Viktor Sotelo Work Phone: [facility] 07-09-2022 11:35-0500 Respiratory rate 18 /min MD Viktor Sotelo Work Phone: [facility] 07-09-2022 11:35-0500 SaO2% (BldA) [Mass fraction] 97 % MD Viktor Sotelo Work Phone: [facility] 06-26-2022 22:17-0500 Respiratory rate 16 /min MD Viktor Sotelo Work Phone: [facility] 06-26-2022 21:54-0500 Body temperature 97.3 [degF] MD Viktor Sotelo Work Phone: [facility] 06-26-2022 21:53-0500 Diastolic blood pressure 81 mm[Hg] MD Viktor Sotelo Work Phone: [facility] 06-26-2022 21:53-0500 Heart rate 83 /min MD Viktor Sotelo Work Phone: [facility] 06-26-2022 21:53-0500 Systolic blood pressure 132 mm[Hg] MD Viktor Sotelo Work Phone: [facility] 06-26-2022 21:37-0500 Body height 167.64 cm MD Viktor Sotelo Work Phone: [facility] 06-26-2022 21:37-0500 Body weight 117.93 kg MD Viktor Sotelo Work Phone: [facility] 06-25-2022 22:03-0500 Diastolic blood pressure 78 mm[Hg] MD Viktor Sotelo Work Phone: [facility] 06-25-2022 22:03-0500 Heart rate 90 /min MD Viktor Sotelo Work Phone: [facility] 06-25-2022 22:03-0500 Respiratory rate 18 /min MD Viktor Sotelo Work Phone: [facility] 06-25-2022 22:03-0500 SaO2% (BldA) [Mass fraction] 97 % MD Viktor Sotelo Work Phone: [facility] 06-25-2022 22:03-0500 Systolic blood pressure 127 mm[Hg] MD Viktor Sotelo Work Phone: [facility] 06-25-2022 17:29-0500 Body height 167.64 cm MD Viktor Sotelo Work Phone: [facility] 06-25-2022 17:29-0500 Body temperature 98.3 [degF] MD Viktor Sotelo Work Phone: [facility] 06-25-2022 17:29-0500 Body weight 117 kg MD Viktor Sotelo Work Phone: [facility] 06-25-2022 12:40-0500 Body temperature 97.9 [degF] MD Viktor Sotelo Work Phone: [facility] 06-25-2022 12:40-0500 Diastolic blood pressure 80 mm[Hg] MD Viktor Sotelo Work Phone: [facility] 06-25-2022 12:40-0500 Heart rate 66 /min MD Viktor Sotelo Work Phone: [facility] 06-25-2022 12:40-0500 Respiratory rate 18 /min MD Viktor Sotelo Work Phone: [facility] 06-25-2022 12:40-0500 SaO2% (BldA) [Mass fraction] 98 % MD Viktor Sotelo Work Phone: [facility] 06-25-2022 12:40-0500 Systolic blood pressure 129 mm[Hg] MD Viktor Sotelo Work Phone: [facility] 02-13-2022 07:45-0400 60 1 Viktor Sotelo Work Phone: [facility] [address] [place] Work Phone: Comment on above: [id number] 01-20-2022 19:14-0400 Diastolic blood pressure 64 mm[Hg] MD Viktor Sotelo Work Phone: [facility] 01-20-2022 19:14-0400 Heart rate 64 /min MD Viktor Sotelo Work Phone: [facility] 01-20-2022 19:14-0400 Respiratory rate 18 /min MD Viktor Sotelo Work Phone: [facility] 01-20-2022 19:14-0400 SaO2% (BldA) [Mass fraction] 100 % MD Viktor Sotelo Work Phone: [facility] 01-20-2022 19:14-0400 Systolic blood pressure 107 mm[Hg] MD Viktor Sotelo Work Phone: [facility] 01-20-2022 14:29-0400 Body temperature 98.4 [degF] MD Viktor Sotelo Work Phone: [facility] 01-20-2022 13:07040 Body height 167.64 cm MD Viktor Sotelo Work Phone: [facility] 01-20-2022 13:040 Body weight 102.4 kg MD Viktor Sotelo Work Phone: [facility] 01-14-2022 10:20-0400 Diastolic blood pressure 74 mm[Hg] Viktor Sotelo Work Phone: [facility] [address] DO Work Phone: 01-14-2022 10:20-0400 Heart rate 65 /min Viktor Sotelo Work Phone: [facility] [address] DO Work Phone: 01-14-2022 10:20-0400 Systolic blood pressure 110 mm[Hg] Viktor Sotelo Work Phone: [facility] [address] DO Work Phone: 01-14-2022 10:19-0400 Body height 167.64 cm Viktor Sotelo Work Phone: [facility] [address] DO Work Phone: 01-14-2022 10:19-0400 Body mass index (BMI) [Ratio] 36.68 kg/m2 Viktor Sotelo Work Phone: [facility] [address] DO Work Phone: 01-14-2022 10:19-0400 Body surface area Derived from formula 2.11 m2 Viktor Sotelo Work Phone: [facility] [address] DO Work Phone: 01-14-2022 10:19-0400 Body weight 103.08 kg Viktor Sotelo Work Phone: [facility] [address] DO Work Phone: 12-11-2021 07:30-0400 Body temperature 98.4 [degF] MD Viktor Sotelo Work Phone: [facility] 12-11-2021 07:30-0400 Diastolic blood pressure 66 mm[Hg] MD Viktor Sotelo Work Phone: [facility] 12-11-2021 07:30-0400 Heart rate 86 /min MD Viktor Sotelo Work Phone: [facility] 12-11-2021 07:30-0400 Respiratory rate 16 /min MD Viktor Sotelo Work Phone: [facility] 12-11-2021 07:30-0400 SaO2% (BldA) [Mass fraction] 95 % MD Viktor Sotelo Work Phone: [facility] 12-11-2021 07:30-0400 Systolic blood pressure 128 mm[Hg] MD Viktor Sotelo Work Phone: [facility] 12-10-2021 15:45-0400 Body height 167.64 cm MD Viktor Sotelo Work Phone: [facility] 12-09-2021 14:00-0400 Body mass index (BMI) [Ratio] 35.4 kg/m2 MD Viktor Sotelo Work Phone: [facility] 12-09-2021 09:00-0400 Body weight 99.75 kg MD Viktor Sotelo Work Phone: [facility] 04-30-2021 13:15-0500 Body height 167.64 cm Viktor Sotelo Work Phone: [facility]Wjkfyrmpxppj[facility] Work Phone: 04-30-2021 13:15-0500 Body mass index (BMI) [Ratio] 31.47 kg/m2 Viktor Sotelo Work Phone: [facility]Jknttjokdywl[facility]BJ[facility] Work Phone: 04-30-2021 13:15-0500 Body surface area Derived from formula 1.98 m2 Viktor Sotelo Work Phone: HJ-Glzcipzzdgbf-QST Work Phone: 04-30-2021 13:15-0500 Body weight 88.45 kg Viktor Sotelo Work Phone: NI-Vjbqhroxwfna-KBO Work Phone: 04-30-2021 13:15-0500 Diastolic blood pressure 82 mm[Hg] Viktor Sotelo Work Phone: FI-Gdatwqktterv-IZX Work Phone: 04-30-2021 13:15-0500 Heart rate 70 /min Viktor Sotelo Work Phone: ZJ[facility]Enghscutssip[facility]UEO Work Phone: 04-30-2021 13:15-0500 Respiratory rate 18 /min Viktor Sotelo Work Phone: YI-Uasibhujwhcv-BMK Work Phone: 04-30-2021 13:15-0500 Systolic blood pressure 118 mm[Hg] Viktor Sotelo Work Phone: IC-Bgxnuuuovyyq-CWV Work Phone: 05-25-2020 17:24-0500 SaO2% (BldA) [Mass fraction] 64 % [facility] Hospital Encounters Encounter Date Encounter Type Care Provider Facility Start: 04-04-2025 ambulatory Viktor Sotelo Facility :[facility] Start: 03-15-2025 End: 03-15-2025 ambulatory RITA Helms [facility] Start: 03-15-2025 End: 03-15-2025 Subsequent hospital visit by physician Alondra Brewer [facility] Comment on above: Pacemaker; Sick sinus syndrome (Multi) Start: 01-02-2025 End: 01-02-2025 ambulatory Michael VIVEROS Facility: [facility] Start: 01-02-2025 End: 01-02-2025 Patient encounter procedure ESTELA CHUNG [facility] Start: 12-07-2024 End: 12-07-2024 ambulatory RITA Helms [facility] Start: 12-07-2024 End: 12-07-2024 Subsequent hospital visit by physician Alondra [facility] Comment on above: Pacemaker; Sick sinus syndrome (Multi) Start: 11-17-2024 Non-patient / Non-visit Viktor Sotelo MD Work Phone: [facility] Physician [facility] Work Phone: Start: 11-17-2024 End: 11-17-2024 Admission to same day surgery center Viktor Sotelo MD Work Phone: [facility] [place] Start: 11-17-2024 End: 11-17-2024 ambulatory Viktor Sotelo MD Work Phone: [facility] Work Phone: Start: 11-15-2024 Registered Recurring Viktor jenkins MD Work Phone: [facility] Start: 11-07-2024 End: 11-07-2024 Patient encounter procedure Viktor Sotelo MD Work Phone: [facility] [place] Work Phone: Start: 10-31-2024 Non-patient / Non-visit Viktor Sotelo MD Work Phone: [facility] Physician [facility] [place] Work Phone: Start: 09-26-2024 Non-patient / Non-visit Viktor Sotelo MD Work Phone: [facility] Work Phone: Start: 09-26-2024 End: 09-26-2024 ambulatory Tete Snell MD Facility:[facility] Start: 08-31-2024 End: 08-31-2024 Subsequent hospital visit by physician Alondra [facility] [facility] Comment on above: Pacemaker; Sick sinus syndrome (Multi) Start: 08-31-2024 End: 08-31-2024 Patient encounter procedure Viktor Sotelo MD Work Phone: [facility] [place] Work Phone: Start: 08-31-2024 End: 08-31-2024 ambulatory Viktor Sotelo MD Work Phone: [facility] Work Phone: Start: 08-24-2024 End: 08-24-2024 ambulatory Viktor Sotelo Facility:[facility] Start: 08-24-2024 Non-patient / Non-visit Viktor Sotelo MD Work Phone: [facility], [facility] Phys[facility] Start: 08-23-2024 Registered Recurring Viktor jenkins MD Work Phone: [facility] Start: 07-25-2024 End: 07-25-2024 ambulatory Tete Snell MD Facility: [facility] Start: 07-11-2024 Non-patient / Non-visit Viktor Sotelo MD Work Phone: [facility]ly [facility], [facility] Physician [facility] [place] Work Phone: Start: 07-11-2024 End: 07-11-2024 ambulatory Tete Snell MD Facility:[facility] Start: 07-05-2024 End: 07-05-2024 ambulatory Michael VIVEROS Facility:[facility] Start: 07-05-2024 End: 07-05-2024 Patient encounter procedure Michael VIVEROS [facility] Start: 07-05-2024 Non-patient / Non-visit Viktor Sotelo MD Work Phone: [facility], [facility] Physician [facility] [place] Work Phone: Start: 07-04-2024 End: 07-04-2024 Patient encounter procedure Viktor Sotelo MD Work Phone: [facility]CT Scan [facility] [place] Work Phone: Start: 07-04-2024 End: 07-04-2024 ambulatory Viktor Sotelo MD Work Phone: [facility] Work Phone: Start: 06-27-2024 End: 06-27-2024 ambulatory Tete Snell MD Facility:[facility] Start: 06-21-2024 Registered Recurring Viktor jenkins MD Work Phone: [facility]- Credible Start: 06-10-2024 End: 06-10-2024 Patient encounter procedure Viktor Sotelo MD Work Phone: [facility], [facility] Physician [facility] Work Phone: Start: 06-02-2024 End: 06-02-2024 ambulatory ESTELASTEPHENIE CHUNG Facility: [facility] Start: 06-02-2024 End: 06-02-2024 Patient encounter procedure ESTELA E SHELDON [facility] Start: 06-02-2024 Non-patient / Non-visit Viktor Sotelo MD Work Phone: [facility], [facility] Physician [facility] [place] Work Phone: Start: 05-30-2024 End: 05-30-2024 Patient encounter procedure Viktor Sotelo MD Work Phone: [facility]-Ultrasound [facility] [place] Work Phone: Start: 05-30-2024 End: 05-30-2024 ambulatory Viktor Sotelo Facility:[facility] Start: 05-30-2024 End: 05-30-2024 ambulatory ESTELA E SHELDON Facility: [place] Start: 05-30-2024 End: 05-30-2024 Patient encounter procedure ESTELA E SHELDON [facility] Start: 05-25-2024 End: 05-25-2024 ambulatory RITA Helms [facility] Start: 05-25-2024 End: 05-25-2024 Subsequent hospital visit by physician Alondra Device [facility] Comment on above: Pacemaker; Sick sinus syndrome (Multi) Start: 05-03-2024 End: 05-03-2024 ambulatory ESTELA Sulema CHUNG Facility:[facility] Start: 05-03-2024 End: 05-03-2024 Patient encounter procedure ESTELA CHUNG [facility] Start: 02-10-2024 End: 02-10-2024 Subsequent hospital visit by physician Alondra [facility] Comment on above: Pacemaker; Sick sinus syndrome (Multi) Start: 11-12-2023 End: 11-12-2023 ambulatory MD Viktor Sotelo Work Phone: [facility] Work Phone: Start: 11-12-2023 End: 11-12-2023 Patient encounter procedure MD Viktor Sotelo Work Phone: [facility], [facility] Physician [facility] Work Phone: Start: 11-09-2023 Registered Recurring MD Viktor Sotelo Work Phone: [facility] Start: 11-04-2023 End: 11-04-2023 Subsequent hospital visit by physician Alondra [facility] Comment on above: Pacemaker; Sick sinus syndrome (Multi) Start: 10-29-2023 End: 10-31-2023 Evaluation and management of inpatient VIKTOR SOTELO [facility] Start: 10-29-2023 Non-patient / Non-visit MD Viktor Sotelo Work Phone: [facility], [facility] Physician [facility] [place] Work Phone: Start: 10-28-2023 Non-patient / Non-visit MD Viktor Sotelo Work Phone: [facility] Physician [facility] Work Phone: Start: 10-27-2023 Non-patient / Non-visit MD Viktor Sotelo Work Phone: [facility], [facility] Physician [facility] [place] Work Phone: Start: 10-26-2023 Non-patient / Non-visit MD Viktor Sotelo Work Phone: [facility] Work Phone: Start: 07-29-2023 End: 07-29-2023 Subsequent hospital visit by physician Alondra Device [facility] Comment on above: Pacemaker; Sick sinus syndrome (CMS/HCC) Start: 04-28-2023 End: 04-28-2023 Patient encounter procedure ESTELA CHUNG [facility] Start: 04-24-2023 End: 04-24-2023 Subsequent hospital visit by physician Alondra Device [facility] Comment on above: Pacemaker; Sick sinus syndrome (CMS/HCC) Start: 01-21-[address] Viktor Sotelo Facility:[id number] Start: 01-21-2023 End: 01-21-2023 ambulatory MD Viktor Sotelo Work Phone: [facility] Work Phone: Start: 01-21-2023 End: 01-21-2023 Patient encounter procedure MD Viktor Sotelo Work Phone: [facility]-MRI [facility] [place] Work Phone: Start: 01-20-2023 Current tobacco non-user cad cap copd pv josh Sotelo Work Phone: [facility] [address] DO Work Phone: Start: 01-20-[address] Viktor Sotelo Facility:[id number] Start: 12-19-[address] Viktor Sotelo Facility:[id number] Start: 12-19-2022 End: 12-19-2022 ambulatory MD Viktor Sotelo Work Phone: [facility] Work Phone: Start: 12-19-2022 End: 12-19-2022 Patient encounter procedure MD Viktor Sotelo Work Phone: [facility]-Pacemaker Check Start: 12-11-2022 End: 12-15-2022 Evaluation and management of inpatient MD Viktor Sotelo Work Phone: [facility] Work Phone: Start: 12-09-2022 End: 12-09-2022 Patient encounter procedure Michael Johnson GUILLE [facility] Start: 11-03-2022 Registered Recurring MD Viktor Sotelo Work Phone: [facility] Start: 10-28-2022 End: 11-01-2022 Evaluation and management of inpatient MD Viktor Sotelo Work Phone: [facility] Work Phone: Start: 10-28-2022 Registered Recurring MD Viktor Sotelo Work Phone: [facility] Start: 10-21-[address] Viktor Sotelo Facility:[id number] Start: 10-18-2022 End: 10-18-2022 Emergency department patient visit MD Viktor Sotelo Work Phone: [facility]-Emergency Room Work Phone: Start: 10-16-2022 End: 10-16-2022 ambulatory KRISTA HARVEY . Facility:[id number] Start: 09-28-2022 End: 09-28-2022 Emergency department patient visit MD Viktor Sotelo Work Phone: [facility]-Emergency Room Work Phone: Start: 09-03-2022 End: 09-07-2022 Evaluation and management of inpatient MD Viktor Sotelo Work Phone: [facility] Work Phone: Start: 09-03-2022 End: 09-03-2022 Patient encounter procedure ESTELA CHUNG [facility] Start: 08-11-2022 End: 08-13-2022 Evaluation and management of inpatient MD Viktor Sotelo Work Phone: [facility] Post Work Phone: Start: 08-05-2022 End: 08-05-2022 ambulatory MD Viktor Sotelo Work Phone: [facility] Work Phone: Start: 08-05-2022 End: 08-05-2022 Patient encounter procedure MD Viktor Sotelo Work Phone: [facility] Labor - O/P Start: 08-01-2022 End: 08-02-2022 Evaluation and management of inpatient MD Viktor Sotelo Work Phone: [facility] Labor and Delivery Work Phone: Start: 07-25-2022 End: 07-25-2022 ambulatory MD Viktor Sotelo Work Phone: [facility] Work Phone: Start: 07-25-2022 End: 07-25-2022 Departed Referred MD Viktor Sotelo Work Phone: [facility]-Lab Main [place] Work Phone: Start: 07-22-2022 Current tobacco non-user cad cap copd pv dm Viktor Sotelo Work Phone: [facility] 320 DO Work Phone: Start: 07-22-[address] Viktor Sotelo Facility:[id number] Start: 07-15-2022 End: 07-17-2022 Evaluation and management of inpatient MD Viktor Sotelo Work Phone: [facility] Work Phone: Start: 07-09-2022 End: 07-09-2022 ambulatory MD Viktor Sotelo Work Phone: [facility] Work Phone: Start: 07-09-2022 End: 07-09-2022 Discharged Recurring MD Viktor Sotelo Work Phone: [facility]-Infusion Therapy - O/P Work Phone: Start: 06-30-2022 End: 06-30-2022 ambulatory MD Viktor Sotelo Work Phone: [facility] Work Phone: Start: 06-30-2022 End: 06-30-2022 Patient encounter procedure MD Viktor Sotelo Work Phone: [facility]-Lab [facility] [place] Work Phone: Start: 06-26-2022 End: 06-26-2022 ambulatory MD Viktor Sotelo Work Phone: [facility] Work Phone: Start: 06-26-2022 End: 06-26-2022 Patient encounter procedure MD Viktor Sotelo Work Phone: [facility]-3 [place] Labor - O/P Start: 06-25-2022 End: 06-25-2022 Emergency department patient visit MD Viktor Sotelo Work Phone: [facility]-Emergency Room Work Phone: Start: 06-25-2022 Registered Recurring MD Viktor Sotelo Work Phone: [facility]-Infusion Therapy - O/P Work Phone: Start: 04-28-2022 End: 04-29-[address] VIKTOR SOTELO Facility: Start: 04-17-[address] Viktor Sotelo Facility:[id number] Start: 02-14-2022 Chart Update Viktor Sotelo Work Phone: [facility] [address] DO Work Phone: Start: 02-13-2022 Patient encounter procedure Viktor Sotelo Work Phone: [facility] [address] [place] Work Phone: Start: 02-13-[address] Rita Olivia Facility:[id number] Start: 01-20-2022 End: 01-20-2022 Emergency department patient visit MD Viktor Sotelo Work Phone: [facility]-Emergency Room Start: 01-14-2022 Current tobacco non-user cad cap copd pv dm Viktor Sotelo Work Phone: [facility] [address] DO Work Phone: Start: 12-18-2021 ambulatory Clemente simmons MD Work Phone: General Surgery Comment on above: [place] Start: 12-16-2021 End: 12-16-2021 Patient encounter procedure MD Viktor Sotelo Work Phone: [facility] Start: 12-08-2021 End: 12-11-2021 Evaluation and management of inpatient MD Viktor Sotelo Work Phone: [address] Start: 09-18-2021 Telephone encounter Clemente Bernstein MD Work Phone: Gastroenterology Comment on above: Patient Update Start: 07-19-2021 Result Review Viktor Sotelo Work Phone: [facility] Work Phone: Start: 04-30-2021 Current tobacco non-user cad cap copd pv josh Sotelo Work Phone: [facility] Work Phone: Start: 03-20-2021 Patient encounter procedure Viktor Sotelo Work Phone: [facility] [address] Work Phone: Start: 01-24-2020 End: 01-25-2020 Patient encounter procedure ROSELINE DECKER [facility] Start: 01-24-2020 End: 01-24-2020 Subsequent hospital visit by physician [facility] Schedule [facility] Comment on above: Arrived Procedures [...] Cholecystectomy Viktor sanches Work Phone: Cholecystectomy ESTELA ENGLE H/O: surgery History of gastr ic surgery MD Viktor Sotelo Work Phone: Insertion of pacemak er pulse generator Viktor Sotelo Work Phone: Maintenance procedur e for cardiac pacemaker system ESTELA CHUNG Operation on gallbladder Marie Sotelo Work Phone: [...] 2) Zoste r Vaccines (1 of 2) [facility] Start: 02-20-2025 COVID-19 Vaccine ( season) COVID-19 Vaccine ( season) [facility] Start: 02-20-2025 Influenza vaccination [facility] Start: 11-17-2024 [facility] Start: 11-17-2024 [facility] Start: 02-21-2024 COVID-19 Vaccine ( season) COVID-19 Vaccine () [facility] Start: 02-21-2024 Influenza vaccination [facility] Start: 07-07-2023 FUV, Provider: Rita Olivia, Status: Pen, Time: 8:40 AM FUV, Provider: Rita Olivia, Status: Pen, Time: 8:40 AM [facility] [address] DO Work Phone: Start: 07-07-2023 End: 07-07-2023 Patient encounter procedure 07/07/2023 8:40 AM EST Office Visit [facility] [address] [facility] [address] [place] [address] Rita Olivia MD [address] [facility] [address], [place] [address] [place], [place] [id number] [facility] Start: 02-20-2023 COVID-19 Vaccine ( season) COVID-19 Vaccine ( season) [facility] Start: 02-20-2023 Influenza vaccination Influenza Vacc ine (#1) [facility] Start: 01-20-2023 FUV, Provider: Rita Olivia, Status: Pen, Time: 8:40 AM FUV, Provider: Rita Olivia, Status: Pen, Time: 8:40 AM [facility] 320 DO Work Phone: Start: 01-20-2023 Patient encounter procedure FUVPACEMKR, Provider: [facility], Status: Pen, Time: 8:00 AM [facility] [address] DO Work Phone: Start: 12-15-2022 [facility] Start: 12-11-2022 Referral to Pyridine Recovery Operator [facility] Start: 12-11-2022 Hospital admission [facility] Start: 12-11-2022 Bacteria identified in Urine by Culture Urine Culture [facility] Start: 11-01-2022 [facility] Start: 10-31-2022 Administration of prophylactic treatment [facility] Start: 2022 Screening for malign ant neoplasm of breast Mammogram [facility] Start: 10-29-2022 Referral to clinical religious education director [facility] Start: 10-28-2022 Referral to [facility] Start: 10-28-2022 Hospital admission [facility] Start: 10-28-2022 Bacteria identified in Urine by Culture [facility] Start: 09-28-2022 CT angiography of thorax CT an ignacia chest PE protocol [facility] Start: 09-28-2022 CT Chest [facility] Start: 09-28-2022 Plain chest X-ray XR chest 2V* [facility] Start: 09-28-2022 XR Chest 2 Views [facility] Start: 09-28-2022 Bacteria identified in Urine by Culture [facility] Start: 09-07-2022 [facility] Start: 09-03-2022 Hospital admission [facility] Start: 08-13-2022 [facility] Start: 08-12-2022 Referral to psychiatrist [facility] Start: 08-12-2022 Hospital admission [facility] Start: 08-11-2022 Extraction of Produc ts of Conception, Low Forceps, Via Natural or Artificial Opening Extraction of Products of Conception, Low Forceps, Via Natural or Artificial Opening [facility] Start: 08-05-2022 [facility] Start: 08-02-2022 [facility] Start: 08-02-2022 Referral to neurologist [facility] Start: 08-02-2022 Hospital admission [facility] Start: 08-02-2022 [facility] Start: 08-01-2022 Hospital admission [facility] Start: 08-01-2022 Bacteria identified in Urine by Culture [facility] Start: 07-25-2022 Group B Streptococcu s Culture Group B Streptococcus Culture [facility] Start: 07-22-2022 FUV, Provider: Rita Olivia, Status: Pen, Time: 9:40 AM FUV, Provider: Rita Olivia, Status: Pen, Time: 9:40 AM [facility] 320 DO Work Phone: Start: 07-17-2022 [facility] Start: 07-15-2022 Bacteria identified in Urine by Culture [facility] Start: 07-15-2022 Referral to Pyridine Recovery Operator [facility] Start: 07-15-2022 Sleep disorder assessment [facility] Start: 07-15-2022 Hospital admission [facility] Start: 06-26-2022 [facility] Start: 06-26-2022 Hospital admission [facility] Start: 06-26-2022 [facility] Start: 06-26-2022 Bacteria identified in Urine by Culture [facility] Start: 06-25-2022 Bacteria identified in Urine by Culture [facility] Start: 02-20-2022 Influenza vaccination INFLUENZA (#1) [facility] Start: 02-13-2022 ECHO, Provider: EDSON DUNN [facility] [id number], Status: Pen, Time: 7:45 AM ECHO, Provider: ЕКАТЕРИНА [facility] 01,[id number], Status: Pen, Time: 7:45 AM [facility] [address] DO Work Phone: Start: 12-11-2021 [facility] Work Phone: Start: 12-10-2021 Referral to kieselguhr regenerator operator [facility] Work Phone: Start: 12-09-2021 Hospital admission [facility] Work Phone: Start: 07-09-2021 Patient encounter procedure FUVPACEMKR, Provider: [facility], Status: Pen, Time: 10:20 AM [facility]OP C Work Phone: Start: 06-20-2021 Diabetes mellitus screening Diabetes Screening [facility] Start: 06-19-2021 EPVNEURO, Provider: Dennis Almendarez, Status: Pen, Time: 9:00 AM EPVNEURO, Provider: Dennis Almendarez, Status: Pen, Time: 9:00 AM [facility] [address] Work Phone: Start: 02-20-2021 Influenza vaccination INFLUENZA (#1) [facility] Start: 07-10-2020 Adult depression screening assessment DEPRESSION SCREENING [facility] Start: 02-21-2020 Influenza vaccination Flu vaccine (# 1) [place], [place] Start: 2018 HPV TESTING HPV TESTING [facility] Start: 2018 PAP TESTING PAP TESTING [facility] Start: 2009 HPV Vaccines (1 - 3- dose standard series) HPV Vaccines (1 - 3-dose standard series) [facility] Start: 05-17-2009 MMR Vaccines (1 of 1 - Standard series) MMR Vaccines (1 of 1 - Standard series) [facility] Start: 05-17-2009 Varicella vaccination [facility] Start: 2004 DTaP/Tdap/Td Vaccine s (1 - Tdap) DTaP/Tdap/Td Vaccines (1 - Tdap) [facility] Start: 10-31-2003 Screening for malign ant neoplasm of cervix [facility] Start: 2001 DTaP/Tdap/Td vaccine (1 - Tdap) DTaP/Tdap/Td vaccine (1 - Tdap) [place], [place] Start: 2001 Hepatitis A Vaccines (1 of 2 - Risk 2-dose series) Hepatitis A Vaccines (1 of 2 - Risk 2-dose series) [facility] Start: 2001 Hepatitis B Vaccines (1 of 3 - 19+ 3-dose series) Hepatitis B Vaccines (1 of 3 - 19+ 3-dose series) [facility] Start: 2001 Urine microalbumin profile DTAP,TDAP,TD (1 - Tdap) [facility] Start: 2000 Diabetes mellitus screening Diabetes Screening [facility] Start: 2000 HEPATITIS C SCREENING HEPATITIS C [facility] Start: 2000 Hepatitis C screening Hepatitis C [facility] Start: 2000 HIV SCREENING HIV SCREENING [facility] Start: 1997 HIV screening HIV screen [facility] [place], [place] Start: 10-31-1987 COVID-19 VACCINE (1) COVID-19 VACCIN E (1) [facility] Start: 10-31-1983 MMR Vaccines (1 of 1 - Standard series) MMR Vaccines (1 of 1 - Standard series) [facility] Start: 10-31-1983 Varicella vaccine (1 of 2 - 2-dose childhood series) Varicella vaccine (1 of 2 - 2-dose childhood series) [place], [place] Start: 05-02-1983 COVID-19 VACCINE (#1) COVID-19 VACCI NE (#1) [facility] Start: 1982 Hepatitis B Vaccines (1 of 3 - 3-dose series) Hepatitis B Vaccines (1 of 3 - 3-dose series) [facility] Start: 1982 HIV screening HIV Screening [facility] Start: 1982 Lipid panel Lipid Panel [facility] Start: 1982 Medicare Annual Well ness Visit Medicare Annual Wellness Visit (AWV) [facility] End: 07-29-2023 Cardiac Device Check - Remote [facility] Service Area Work Phone: Comment on above: Once for 1 Occurrenc es starting 07/29/2023 until 07/29/2023 End: 11-04-2023 Cardiac Device Check - Remote [facility] Service Area Work Phone: Comment on above: Once for 1 Occurrenc es starting 11/04/2023 until 11/04/2023 End: 05-25-2024 Cardiac Device Check - Remote [facility] Service Area Work Phone: Comment on above: Once for 1 Occurrenc es starting 05/25/2024 until 05/25/2024 End: 02-10-2024 Cardiac Device Check - Remote [facility] Service Area Work Phone: Comment on above: Once for 1 Occurrenc es starting 02/10/2024 until 02/10/2024 End: 08-31-2024 Cardiac Device Check - Remote [facility] Service Area Work Phone: Comment on above: Once for 1 Occurrenc es starting 08/31/2024 until 08/31/2024 End: 12-07-2024 Cardiac Device Check - Remote [facility] Service Area Work Phone: Comment on above: Once for 1 Occurrenc es starting 12/07/2024 until 12/07/2024 End: 03-15-2025 Cardiac Device Check - Remote [facility] Service Area Work Phone: Comment on above: Once for 1 Occurrenc es starting 03/15/2025 until 03/15/2025 End: 01-24-2020 Home Sleep Study Home Sleep Study Sleep Center Routine One Time for 1 Occurrences starting 01/24/2020 until 01/24/2020 [facility], [place] Comment on above: One Time for 1 Occur rences starting 01/24/2020 until 01/24/2020 Patient Education [facility] Work Phone: Patient referral [facility] Work Phone: Reagin Ab [Presence] in Serum by RPR [facility] Streptococcus agalac tiae [Presence] in Unspecified specimen by Organism specific culture [facility] Immunizations Immunization Date Immunization Notes Care Provider Carlita arthur 05-27-2020 influenza virus vaccine, unspecified formulation ESTELA SHELDON [facility] 05-27-2020 influenza, injectabl e, quadrivalent, preservative free Clemente Eng MD Work Phone: [facility] 05-22-2020 influenza virus vaccine, unspecified formulation ESTELA SHELDON [facility] 08-29-2019 influenza virus vaccine, unspecified formulation [facility] Work Phone: 04-10-2019 influenza virus vaccine, unspecified formulation ESTELA CHUNG [facility] 04-10-2019 influenza, injectabl e, quadrivalent, preservative free Clemente Eng MD Work Phone: [facility] 04-19-2009 novel [id number], preservative-free, injectable Viktor E Sotelo Work Phone: [facility] Campusy[employer] [address] DO Work Phone: Payers Date Payer Category Payer Private Health Insurance 2022 Medicaid [id number] 2022 Self-pay [id number] 2021 Medicare [id number] [id number] .[id number] 2021 Medicare (Managed Care) REJI MARTEL [id number] .[id number] 2021 Private Health Insurance [id number] 2020 Medicaid MEDICAID [facility] MEDICAID [id number] 2020-Present [phone] [address] [place] [address] Medicaid [id number] .[id number] 2020 Medicare MEDICARE MEDICAR E A AND B [id number] 2020-Present [phone] [place] [address] Medicare [id number] .[id number] 2019 Unknown [id number] 1.2.840.467199.1.13.239.2.7 .3.277880.315 1982 Unknown [id number] 2.16.840.1.568336.3.579.2.1 1982 Unknown [id number] 2.16.840.1.806376.3.579.2.5 1982 Unknown [id number] 2.16.840.1.958303.3.579.2.5 1982 Unknown [id number] 2.16.840.1.174834.3.579.2.1 1982 Unknown [id number] 2.16.840.1.827718.3.579.2.1 1982 Unknown [id number] 2.16.840.1.418193.3.579.2.1 1982 Unknown [id number] 2.16.840.1.984243.3.579.2.1 1982 Unknown [id number] 2.16.840.1.988160.3.579.2.1 1982 Unknown [id number] 2.16.840.1.501685.3.579.2.3 1982 Unknown [id number] 2.16.840.1.797986.3.579.2.3 1982 Unknown [id number] 2.16.840.1.857454.3.579.2.3 1982 Unknown [id number] 2.16840.1.713556.3.579.2.3 1982 Unknown [id number] 2.840.1.032518.3.579.2.1 1982 Unknown [id number] 2.840.1.787225.3.579.2.1 1982 Unknown [id number] 2.840.1.623689.3.579.2.1 1982 Unknown [id number] 2.840.1.872365.3.579.2.1 1982 Unknown [id number] 2.16840.1.978205.3.579.2.1 1982 Unknown [id number] 2.840.1.521488.3.579.2.7 1982 Unknown [id number] 2.16840.1.594864.3.579.2.7 1982 Unknown [id number] 2.16840.1.817431.3.579.2.7 1982 Unknown [id number] 2.16840.1.402229.3.579.2.7 1982 Unknown [id number] 2.16840.1.501576.3.579.2.7 27 1982 Unknown [id number] 2.16.840.1.533730.3.579.2.1 246 1982 Unknown [id number] 2.16.840.1.443593.3.579.2.1 246 1982 Unknown [id number] 2.16.840.1.645515.3.579.2.1 246 1982 Unknown [id number] 2.16.840.1.799486.3.579.2.1 246 1959 Medicaid [id number] 1959 Medicare [id number] Medicare [id number] Unknown Unknown [id number] 2.16.840.1.337917.3.579.2.5 31 Unknown [id number] 2.16.840.1.439938.3.579.2.5 31 Unknown [id number] 2.16.840.1.316235.3.579.2.5 31 Unknown [id number] 2.16.840.1.994843.3.579.2.5 31 Unknown [id number] 2.16.840.1.159435.3.579.2.5 31 Unknown [id number] 2.16.840.1.560396.3.579.2.5 31 Social History Date Type Detail Facility Tobacco smoking stat [facility] Unknown if ever smoked [facility] [place] Start: 1980 Sex Assigned At Not on file M [place], [place] Start: 06-08-2023 Non-smoker Non-smoker [facility] Work Phone: Start: 10-21-2013 End: 06-08-2023 Tobacco smoking status NHIS Never smoked tobacco [facility] Work Phone: Start: 10-21-2013 End: 06-08-2023 Tobacco use and exposure Smokeless tobacco non-user [facility] Work Phone: Start: 11-09-2020 Alcohol intake Current non-dr cattle sticker of alcohol (finding) [facility] Start: 10-24-2019 History SDOH Financial 5 [facility] Start: 10-24-2019 History SDOH Food Worry 1 [facility] Start: 10-24-2019 History SDOH Transpo rt Med 2 [facility] Start: 1980 Sex Assigned At Female C [facility] Start: 05-16-2022 Tobacco smoking status Never [facility] Start: 06-08-2023 Sex Assigned At Female F [facility] Tobacco smoking stat [facility] Tobacco smoking consumption unknown [facility] Work Phone: Start: 06-08-2023 Alcohol intake Ex-drinker (finding) [facility] Work Phone: Start: 10-03-2009 End: 07-05-2024 Sex Female (finding) [facility] Sexual Orientation [facility] Medical Equipment Procedure Code Equipment Code Equipment Origin al Text Equipment Identifier Dates [facility] [id number]/52 [id number] Start: 04-11-2020 [facility] [id number]/46 [id number] Start: 04-11-2020 [facility] Assurity Mri [id number] Start: 04-11-2020 Tray Port-A-Cath Ii 7.8fr 2.6mm 1.6mm Polysulfone Titanium Polyurethane 76 - [id number] Start: 07-22-2018 Corflo Feeding T ube 10f 60cm [id number] Start: 08-17-2018 Kit Ponsky 20fr Silicone Peg Pull Deluxe Kit Non Safety Sterile - [id number] Start: 01-31-2019 Tube Claudio Secur-L ok 20fr Standard J Silicone Jejunostomy Trimmable Distal - [id number] Start: 04-20-2019 Tube Claudio Secur-L ok 18fr Standard Silicone Natural Rubber Jejunostomy - [id number] Start: 07-11-2019 Kit Endovive 20f r Xylocaine Silicone Peg Pull Method Ampule Trocar Cannula - [id number] Start: 10-25-2019 Goals Date Patient Goal Desired Activity /State Functional Status Date Assessment Result Facility 07-05-2024 Functional Status N/A [facility] 04-28-2023 Functional Status N/A [facility] 12-15-2022 Functional status Patient at Baseline [facility] Work Phone: 12-09-2022 Functional Status N/A [facility] 11-01-2022 Functional status Patient at Baseline [facility] Work Phone: 09-07-2022 Functional status Patient at Baseline [facility] Work Phone: 09-03-2022 Functional Status N/A [facility] 08-13-2022 Functional status Patient at Baseline [facility] Work Phone: 07-17-2022 Functional status Patient at Baseline [facility] Work Phone: 12-11-2021 Functional status Patient at Baseline [facility] Work Phone: Mental Status Date Assessment Result Facility 12-15-2022 Cognitive function Cognitive Sta tus Patient at Baseline [facility] Work Phone: 11-01-2022 Cognitive function Cognitive Sta tus Patient at Baseline [facility] Work Phone: 09-07-2022 Cognitive function Cognitive Sta tus Patient at Baseline [facility] Work Phone: 08-13-2022 Cognitive function Cognitive Sta tus Patient at Baseline [facility] Work Phone: 07-17-2022 Cognitive function Cognitive Sta tus Patient at Baseline [facility] Work Phone: 12-11-2021 Cognitive function Cognitive Sta tus Patient at Baseline [facility] Work Phone: Clinical Notes 06-07-2019 to [...] including vitamins, herbs, eye drops, creams, and zetq-aew-moftesb medicines. Any problems you or family members [...] provider tells you to take them. Taking hsbw-yvr-adxcbac medicines, vitamins, herbs, and supplements. Tests You [...] Follow these instructions at home: Medicines Take hhtr-jcv-tugroja and prescription medicines only as told by [...] provider. Document Revised: 02/19/2022 Document Reviewed: 01/18/2021 [employer] Patient Education 2023 Talkdesk. Follow Up Care 07/05/2024 14:01:42 With:[facility] Address: When: Unknown Comments:Only if needed/new problems arise. No scheduled appointment indicated at this time. [facility] [place] 01-02-2025 Note Patient Education Urology [...] including vitamins, herbs, eye drops, creams, and adjz-led-unakgli medicines. ??? Any problems you or family [...] tells you to take them. ??? Taking mhxh-ybo-qcgcjpm medicines, vitamins, herbs, and supplements. Tests You [...] these instructions at home: Medicines ??? Take iwig-aii-wruwins and prescription medicines only as told by [...] (biopsy) during your (more content not included)... [facility] 11-07-2024 Evaluation note Diagnosis Onset Date Resolution Port-A-Cath in place acute November 07, 2024 2:52pm [facility] Work Phone: 1(257) 922-769301-14-2025 Hospital Discharge instructions Patient Education 07/05/2024 13:36:38 [...] Up Care 06/21/2024 10:16:19 With:Michael VIVEROS Address: [address] [place] [address] Business (1) When:01/02/2025 13:36:19 Comments:With Martha Chung [facility] 01-14-2025 Evaluation + Plan noteExtracted from: Title:EU [...] was dilated from 22-30 Setswana wi th [place] sounds. Future Appointments Appointment Date:01/02/2025 08:20:00 AM Scheduled Provider:ESTELA CHUNG PA-C Location:[facility] Appointment Type:URO Office Visit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 Choice Given: Yes Level of Care Discussed: Other: See Comment(home pharmacy) Provider list within the patient's requested geographic area shared with the patient/family: No Reason: Patient active with [facility] for tubefeeding and planning to continue at discharge POTENTIAL TRANSITION PLANS Home;Home Care Pharmacy SIGNATURE: Idalia Cohen RN PATIENT NAME: Maricarmen Anderson DATE: May 26, 2020 TIME: 2:16 PM PAGER/CONTACT #: [phone] Note HNO ID: [id number] Author: Interface Note Service: ? Author Type: ? Type: Progress Notes Filed: 05/26/2020 3:18 AM Note Text: Epic Scheduled Downtime: 05/26/2020 1:00:00 AM to 05/26/2020 3:06:00 [facility]07-13-2020 NoteHNO ID: [id number] Author: Maynor Manley DO Service: General Surgery Author Type: Resident Type: Progress Notes Filed: 01/02/2020 7:23 AM Note Text: Attestation signed by Clemente Eng at 01/02/2020 12:30 PM Attending Note I evaluated the patient and personally participated in the edwrad components. I agree with the resident's findings [...] home today. SIGNATURE: Maynor Manley DO PAGER: [phone] DATE: January 02, 2020 TIME: 7:22 AM [...] Lubin DO Pager: DATE: 01/02/2020 TIME: 7:10 [facility]07-12-2020 NoteHNO ID: [id number] Author: Glenny Chavarria (Sw) Service: Care Management Author Type: Classification Officer Type: Care Mgt Progress Note Filed: 01/01/2020 [...] 01, 2020 TIME: 8:30 AM PAGER/CONTACT #: [phone]-2020 NoteHNO ID: [id number] Author: Avtar Randhawa Service: General Surgery Author [...] 70 TBILI 0.3 LIPASE 33 Signature: Avtar BrockDO linda, PGY-4 Date: January 01, 2020 Time: 6:31 AM Pager: [phone] between 6AM-5PM weekday. [phone] for weekend and night call.[facility]07-12-2020 NoteHNO ID: [id number] Author: Interface Note Service: ? Author Type: ? Type: Progress Notes Filed: 01/01/2020 3:09 AM Note Text: Epic Scheduled Downtime: 01/01/2020 1:00:17 AM to 01/01/2020 2:53:17 [facility]07-11-2020 NoteHNO ID: [id number] Author: Glenny Chavarria (Sw) Service: Care Management Author Type: Classification Officer Type: Care Mgt Initial Assessment Filed: 12/31/2019 5:49 PM Note Text: CARE MANAGEMENT: ASSESSMENT AND DISCHARGE PLAN SERVICE DATE: December 31, 2019 SERVICE TIME: 3:10pm PRIMARY CARE PHYSICIAN: Viktor Sotelo MD ADMISSION STATUS: Observation MEDICAL: BLUE ACCESS PPO Patient/[employer] Stated Goals: To have reduction in symptoms [...] Completely I feel financially burdened by my hcc-bw-dxunqr expenses for my prescription medication:: 0 - Disagree Completely Risk Score: 0 Patient is categorized as: Low risk < 2 Are you interested in bedside delivery of your medications? No Is Patient Psychosocially Complex?: No ASSESSMENT AND PLAN: Medical Needs: Medical Needs: Two or more chronic diseases Psychosocial Needs: Psychosocial Needs: None FREEDOM OF CHOICE EXPLAINED: [place] of Choice Given: No Reason Not Given: No placements necessary POTENTIAL TRANSITION PLANS Patient active with [facility] in the community for tube feeding . [facility] to follow up with patient as to plan . PEJ tube Observation status. EMR reviewed. 5:00pm : [facility] indicates that Osmolite 1.5 , 1200 ml daily , 50ml/hour , free water flush at 100ml 6x a day. EMPERATRIZ Rodriguez SIGNATURE: EMPERATRIZ Hernandez PATIENT NAME: Maricarmen Anderson DATE: December 31, 2019 TIME: 3:09 PM PAGER/CONTACT #: [phone] NoteHNO ID: [id number] Author: Interface Note Service: ? Author Type: ? Type: Progress Notes Filed: 12/31/2019 3:12 AM Note Text: Epic Scheduled Downtime: 12/31/2019 1:00:00 AM to 12/31/2019 2:45:23 [facility]12-17-2019 History of Past illness Narrative* Problem [...] OS ED and admitted once to [facility] with Negative MRI/EEG work up Continues to [...] UTI. Placed on Cipro and presented to [facility] and had a negative culture, antibiotics were stopped - She had an MRI/EEG workup at [facility] - negative - Continues symptoms- confusion, memory [...] of this encounter (statuses as of 09/18/2021) [facility]12-17-2019 History of Past illness Narrative* [...] OSH ED and admitted once to [facility] with Negative MRI/EEG work up Continues to [...] on Cipro and presented to OSH [facility] and had a negative culture, antibiotics were stopped - She had an MRI/EEG workup at [facility] - negative - Continues symptoms- confusion, memory loss, slow to respond, slowed speech, numbness intermittently in upper extremities. New frontal headache over past 2-3 days, no visual changes. PLAN: - EEG - MRI kem [facility] - Thiamine, B6, B12, Ammonia, Lead, niacin, [...] of this encounter (statuses as of 12/26/2021) [facility] complaint Narrative - Reported* Patient is being seen for an initial Neurosurgical evaluation. * History of Chiari malformation. Having neck pain and numbness and tingling in her face and arms. Had seen [facility] doctor, told her not warranted at this time. AT[facility]trtjsw[facility] Work Phone: Evaluation + Plan note No data available for this section [facility] evaluation + Plan note Future Appointments Appointment Date:05/03/2024 09:00:00 AM Scheduled Provider:ESTELA CHUNG PA-C Location:[facility] Appointment Type:URO Office Visit [facility] evaluation + Plan note Future Appointments Appointment Date:06/02/2024 02:20:00 PM Scheduled Provider:ESTELA CHUNG PA-C Location:[facility] Appointment Type:URO Office Visit [facility] Evaluation note* Diagnosis Onset Date Resolution Status Advanced maternal age affecting , antepartum acute Anemia acute BMI 35.0-35.9,adult acute Depression acute First trimester ac marc History of induced hypertension acute Major depression 2021 acute Major depression with psychotic features acute acute PTSD (post-traumatic stress disorder) acute UTI (urinary tract infection) acute [facility] Work Phone: Evaluation noteNo assessment information available [facility] Work Phone: Evalumgfcj note* Diagnosis Onset Date Resolution Status Hallucinations acute History of induced hypertension acute Major depression with psychotic features acute acute Schizoaffective disorder acu te [facility] Work Phone: Evaluation note* Diagnosis Onset Date Resolution Status Hallucinations acute History of induced hypertension acute Major depression with psychotic features acute acute Schizoaffective disorder acu te Chiari malformation type I a cute History of induced hypertension acute [facility] Work Phone: Evaluation note* Diagnosis Onset Date Resolution Status Hallucinations acute History of induced hypertension acute Major depression with psychotic features acute acute Schizoaffective disorder acu te Chiari malformation type I a cute History of induced hypertension acute Schizoaffective disorder acu te Auditory hallucination acute Depression with suicidal ideation acute Schizoaffective disorder acu te Suicide ideation acute [facility] Work Phone: Evaluation note* Diagnosis Onset Date Resolution Status Chiari malformation type I a cute History of induced hypertension acute Schizoaffective disorder acu te Auditory hallucination acute Depression with suicidal ideation acute Schizoaffective disorder acu te Suicide ideation acute Auditory hallucinations acut e [facility] Work Phone: Evaluation note* Diagnosis Onset Date Resolution Status Schizoaffective disorder acu te Auditory hallucination acute Depression with suicidal ideation acute Schizoaffective disorder acu te Suicide ideation acute Auditory hallucinations acut e Gastroparesis acute Nausea & vomiting acute Schizoaffective disorder acu te [facility] Work Phone: Evaluation note* Diagnosis Onset Date Resolution Status Auditory hallucinations acut e Gastroparesis acute Nausea & vomiting acute Schizoaffective disorder acu te [facility] Work Phone: Evaluation note* Diagnosis Onset Date Resolution Status Auditory hallucinations acut e Gastroparesis acute Nausea & vomiting acute Schizoaffective disorder acu te Schizoaffective disorder acu te Suicide ideation acute [facility] Work Phone: Evaluation note* Diagnosis Pacemaker Cardiac pacemaker in situ Sick sinus syndrome (CMS/HCC) Sinoatrial node dysfunction documented in this encounter [facility] Work Phone: Evaluation note* Diagnosis Pacemaker Cardiac pacemaker in situ Sick sinus syndrome (CMS/HCC) Sinoatrial node dysfunction documented in this encounter [facility] Work Phone: Evaluation note* Diagnosis Pacemaker Cardiac pacemaker in situ Sick sinus syndrome (Multi) Sinoatrial node dysfunction documented in this encounter [facility] Work Phone: Evaluation note* Diagnosis Pacemaker Cardiac pacemaker in situ Sick sinus syndrome (Multi) Sinoatrial node dysfunction documented in this encounter [facility] Work Phone: Evaluation note* Diagnosis Pacemaker Cardiac pacemaker in situ Sick sinus syndrome (Multi) Sinoatrial node dysfunction documented in this encounter [facility] Work Phone: History and physical note Author Eduardo Swain [facility] December 12, 2022 10:19am Note Date/Time December 12, 2022 10:1 9am [facility] [address] [place] [address] Psychiatry H&P Signed Patient: Maricarmen Anderson MR#: [id number] : 1980 Acct:[id number] Age/Sex: 42 / F Adm Date: 3 Loc: Room: [address] [place] [address] Type: ADM IN Attending Dr: Eduardo Swain [...] promethazine 12.5 mg rectal suppository 12.5 mg LA Q6H PRN Nausea And Vomiting 12/11/22 [History [...] cloudy A Urine pH 6.0 Ur Specific [place] 1.015 Urine Protein Negative Urine Glucose (UA) [...] signed by Eduardo Swain MD> 12/12/22 1019 [facility] Work Phone: History of Present illness [...] 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 * Personal review of ECG and cardiac [...] needed, treatment options, risks, benefits, and imponderables. [employer] lifestyle changes and behavioral modification discussed. All questions answered in detail. Counseling over 50% visit regarding above. Patient appreciative of care. 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 * Personal review of ECG and cardiac [...] needed, treatment options, risks, benefits, and imponderables. [employer] lifestyle changes and behavioral modification discussed. All questions answered in detail. Counseling over 50% visit regarding above. Patient appreciative of care. 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 * Personal review of ECG and cardiac data reviewed . * Outside records: * OV with me December 2020 * Device check December 2020 * Office visit June 2020 * Device check November 2020 * Device check October 2020 * Office note October 2020 * Device Check: Today. [employer] 8530 pacemaker. Estimate longevity device over 9 years. [...] needed, treatment options, risks, benefits, and imponderables. [employer] lifestyle changes and behavioral modification discussed. All questions answered in detail. Counseling over 50% visit regarding above. Patient appreciative of care. 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 * Personal review of ECG and cardiac [...] treatment options, risks, benefits, and i mponderables. [employer] lifestyle changes and behavioral modification discussed. All questions answered in detail. Counseling over 50% visit regarding above. Patient appreciative of care. 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 * Personal review of ECG and cardiac [...] treatment options, risks, benefits, and i mponderables. [place] [employer] lifestyle changes and behavioral modification discussed. All questions answered in detail. Counseling over 50% visit regarding above. Patient appreciative of care. [facility] 320 DO Work Phone: History of Present [...] needed, treatment options, risks, benefits, and imponderables. [place] [employer] lifestyle changes and behavioral modification discussed. All questions answered in detail. Counseling over 50% visit regarding above. Patient appreciative of care. [facility] 320 DO Work Phone: [facility]charge instructions Additional Instructions Regular Diet No [facility] Work Phone: Hospital Discharge instructions Additional Instructions Obtain BP cuff at pharmacy and obtain BP at home twice daily after resting for ten minutes prior to performing. Call Labor and Delivery for BP elevated 150/100 x 2 readings. Return Thursday08/05/2022 at 0900 for NST and BP check.[facility] Work Phone: Hospital Discharge instructions No data available for this section [facility] Discharge instructions Additional Instructions No Activity Restrictions Regular Diet continue your vitamin therapy after gastric surgery as prescribed. Your vitamin D and B12 were found low while you were i the hospital.[facility] Work Phone: Progress note No data available for this section [facility] reason for visit Narrative* Imaging (Routine) - Pending Review Specialty Diagnoses / Procedures Referred By Laura t Referred To Contact Cardiology Diagnoses Pacemaker Sick sinus syndrome (Multi) Procedures Cardiac Device Check - Remote Rita Olivia MD [address] [place] [address] Phone: tel: fax: Referral ID Status Reason Start Date Expiration Date Visits Requested Visits Authorized [id number] Pending Review Perform Procedure 05/25/2024 05/25/2025 1 1 [facility] Work Phone: Summary Purpose Family [...] FoundDocuments on File Type Date Recorded Patient Cook Mayonnaise Expl anation Advance Directives and Living Will Power of Platform Material Handler Manager Documents on File Type Date Recorded Patient Cook Mayonnaise Expl anation Advance Directive(s) Advance Directive(s) 11/09/2020 [...] 6 month follow-up with [facility]. She is 16 weeks Patient here for 6 month follow-up with [facility]. She is 16 weeks Patient presented [...] contractions iup 37 weeks IUP (Intrauterine ) P dizzy headache Reason for Visit Hallucinations History of induced hypertension Major depression with psychotic features Schizoaffective disorder Chiari malformation type I History of induced hypertension Schizoaffective disorder Auditory hallucination Depression with suicidal ideation Schizoaffective disorder Suicide ideation Chief Complaint 37 WK IUP contractio ns iup 37 weeks IUP (Intrauterine ) P dizzy headache abd pain n/v [facility] Reason for Visit Chiari malformation type I History of induced hypertension Schizoaffective disorder Auditory hallucination Depression with suicidal ideation Schizoaffective disorder Suicide ideation Auditory hallucinations Chief Complaint iup 37 weeks IUP (Intrauterine ) P dizzy headache abd pain n/v [facility] Reason for Visit Schizoaffective diso rder Auditory hallucination Depression with suicidal ideation Schizoaffective disorder Suicide ideation Auditory hallucinations Gastroparesis Nausea & vomiting Schizoaffective disorder Chief Complaint dizzy headache abd pain n/v [facility] Reason for Visit Auditory hallucinati ons Gastroparesis Nausea & vomiting Schizoaffective disorder Chief Complaint dizzy headache abd pain n/v [facility] Reason for Visit Auditory hallucinati ons Gastroparesis Nausea & vomiting Schizoaffective disorder Schizoaffective disorder Suicide ideation Chief Complaint dizzy headache abd pain n/v [facility] mri clearance Reason for Visit Auditory hallucinati ons Gastroparesis Nausea & vomiting Schizoaffective disorder Schizoaffective disorder Suicide ideation Chief Complaint [facility] mri clearance N28.89 Reason for Visit Auditory [...] - Remote Rita Olivia MD [address] [place] [address] Referral ID Status Reason Start Date Expiration Date Visits Requested Visits Authorized [id number] Pending Review Perform Procedure 04/24/2023 04/23/2024 1 1 Additional Source Comments INFORMATION SOURCE (unrecogn ized section and content) DATE CREATED AUTHOR 05/13/2019 [facility] DATE CREATED AUTHOR AUTHOR'S ORGANIZ ATION 09/27/2019 [facility] DATE CREATED AUTHOR AUTHOR'S ORGANIZ ATION 02/11/2020 [facility] DATE CREATED AUTHOR AUTHOR'S ORGANIZ ATION 11/18/2020 [facility] DATE CREATED AUTHOR AUTHOR'S ORGANIZ ATION 09/20/2021 [facility] DATE CREATED AUTHOR AUTHOR'S ORGANIZ ATION 10/31/2022 [facility] DATE CREATED AUTHOR AUTHOR'S ORGANIZ ATION 01/21/2023 [facility] DATE CREATED AUTHOR AUTHOR'S ORGANIZ ATION 01/22/2023 [facility] DATE CREATED AUTHOR AUTHOR'S ORGANIZ ATION 03/05/2023 [facility] DATE CREATED AUTHOR AUTHOR'S ORGANIZ ATION 11/06/2023 [facility] DATE CREATED AUTHOR AUTHOR'S ORGANIZ ATION 10/02/2024 [facility] DATE CREATED AUTHOR AUTHOR'S ORGANIZ ATION 01/04/2025 [facility] DATE CREATED AUTHOR AUTHOR'S ORGANIZ ATION 03/24/2025 [facility] DATE CREATED AUTHOR AUTHOR'S ORGANIZ ATION 04/08/2025 [facility] Source Comments (unrecognize d section and content) In the event this informatio n is protected by the Federal Confidentiality of Alcohol and Drug Abuse Patient Records regulations: The Federal rules restrict any use of the information to criminally investigate or prosecute any alcohol or drug abuse patient.[facility] the event this information is protected by the Federal Confidentiality of Alcohol and Drug Abuse Patient Records regulations: The Federal rules restrict any use of the information to criminally investigate or prosecute any alcohol or drug abuse patient.[facility] Reason for Visit (unrecogniz ed section and content) Reason Comments Patient Update Specialty Diagnoses / Procedures Referred By Contac t Referred To Contact Cardiology Diagnoses Pacemaker Sick sinus syndrome (CMS/HCC) Procedures Cardiac Device Check - Remote Rita Olivia MD [address] [place] [address], [address] [address] Referral ID Status Reason Start Date Expiration Date Visits Requested Visits Authorized [id number] Pending Review Perform Procedure 04/24/2023 04/23/2024 1 1 Specialty Diagnoses / Procedures Referred By Contac t Referred To Contact Cardiology Diagnoses Pacemaker Sick sinus syndrome (CMS/HCC) Procedures [place] - [place] [id number] [id number] Specialty Diagnoses / Procedures Referred By Contac t Referred To Contact Cardiology Diagnoses Pacemaker Sick sinus syndrome (Multi) Procedures Cardiac Device Check - Remote Rita Olivia MD [facility], [address] [address] Care Teams (unrecognized sec tion and content) [...] November 12, 2023 End: November 12, 2023 Track Repair Supervisor Relationship Specialty Start Date End Date Viktor Sotelo MD [address] [place] [phone] PCP - General 10/18/13 Track Repair Supervisor Relationship Specialty Start Date End Date Viktor Sotelo MD [address] [place] [phone] PCP - General 10/18/13 Team Status: Inactive Member Role Status Tash Sotelo MD Primary Care Provider Active Cornell Mcnair MD Emergency Provider Active Eduardo Swain MD Admit Provider, Attending Provider Active Urbano Palma , DO Other Provider Active Team Status: Inactive [...] Primary Care Provider Active Chelsie Cortez , DUANE Emergency Provider Active Team Status: Active Member [...] RN Other Provider Active Georgia Arana , BRANDIE Other Provider Active Yola Orta , BRANDIE Other Provider Active Yisel Martin , BRANDIE Other Provider Active Magda Hurely MD Other Provider Active Eh Jennings MD Other Provider Active Urmila Paiz , CLIENT PARTNER Other Provider Active Mahad Mandel , DO [...] Peterson MD Other Provider Active Gretta Maki CONING MACHINE OPERATOR-C Other Provider Active Yonny Bazan MD Other Provider Active Trace Morataya MD Other Provider Active Dimitris Joe MD Other Provider Active Verona Waterman , DO Other Provider Active All Bloom , DO Other Provider Active Joe Holland , DO Other Provider Active Candice Roman CLIENT PARTNER Other Provider Active Rosendo oHlland , DO Other Provider Active Harriet Andrade MD Other Provider Active Chaparrita Mcnair CLIENT PARTNER Other Provider Active Sheri Montana CLIENT PARTNER Other Provider Active Genesis Pinedo , BRANDIE [...] Active Eduardo Swain MD Admit Provider Active Track Repair Supervisor Relationship Specialty Start Date End Date Viktor Sotelo MD PCP - General 03/02/20 Track Repair Supervisor Relationship Specialty Start Date End Date Viktor Sotelo MD PCP - General 03/02/20 Track Repair Supervisor Relationship Specialty Start Date End Date Viktor Sotelo MD [address] [place] [phone] PCP - General 03/02/20 Track Repair Supervisor Relationship Specialty Start Date End Date Viktor Sotelo MD [address] [place] [phone] PCP - General 03/02/20 Track Repair Supervisor Relationship Specialty Start Date End Date Viktor Sotelo MD [address] [place] [phone] PCP - General 03/02/20 Track Repair Supervisor Relationship Specialty Start Date End Date Viktor Sotelo MD [address] [place] [id number] PCP - General 03/02/20 Goals (unrecognized section [...] BE BASED ON THE PRIMARY CLINICAL RECORDS. [facility]. provides no warranty or guarantee of the accuracy or completeness of information in this document.
[2025-04-10 10:42] VITALS: BP 144/96; PULSE 92; TEMP 36.5; O2SAT 95
[2025-04-10 10:54] LABS: INR 1.83; Prothrombin Time 18.3 sec (9.0-11.6)
[2025-04-10 11:21] VITALS: BP 121/77; PULSE 96; O2SAT 97
[2025-04-10] MEDS: BUPIVACAINE HCL 0.25% PF 25 MG/10 ML VIAL 6 ML INJ (11:23)
[2025-04-10] MEDS: LIDOCAINE HCL 2% 400 MG/20 ML MDV INJ (11:23)
[2025-04-10 11:24] VITALS: BP 124/77; PULSE 91; O2SAT 96
--- NOTE | 2025-04-10 11:25 | W.PM.PROCNOT ---
Date of procedure: 04/10/25 Pre-op diagnosis: Pain due to cervical spondylosis without myelopathy Post-op diagnosis: same as pre-op Procedure: Procedure: Bilateral C3-4, 4-5 medial branch block Medications: Bupivacaine 0.25% 6cc The patient was seen and examined in the preoperative holding area.? The informed consent was obtained and placed on the chart.? The patient was brought to the medical procedure unit and placed in the prone position.? A timeout was completed verifying correct patient, procedure site, positioning, plan, and special equipment.? Using aseptic technique, the needle was placed at left C3.? Under direct fluoroscopic visualization, a Quincke tip needle was advanced to the midpoint of the waist of the articular pillar at the respective medial branch segment. The above-mentioned injectate was placed in a 1 mL aliquot proceeded by negative aspiration.? The needle was removed.? The procedure was completed at all left C4, 5. The same procedure, at the same levels, was then completed on the right side. Insertion site was covered.? Patient was taken to the postprocedural recovery area and monitored for an appropriate length of time before found suitable for discharge in the accompaniment of a responsible adult. Anesthesia: Local Surgeon: Tete Snell Pathology: none sent Condition: stable Disposition: no change
== END 2025-04-10 11:30 | disposition home or self-care (01) ==
PROVIDERS: PCP Family Medicine; Visit Provider Anesthesiology
DX: M47.812 Spondylosis without myelopathy or radiculopathy, cervical region (principal); M54.2 Cervicalgia; I26.99 Other pulmonary embolism without acute cor pulmonale; D68.69 Other thrombophilia; D64.9 Anemia, unspecified; K90.9 Intestinal malabsorption, unspecified; I82.402 Acute embolism and thrombosis of unspecified deep veins of left lower extremity; D50.9 Iron deficiency anemia, unspecified; D51.9 Vitamin B12 deficiency anemia, unspecified; Z79.01 Long term (current) use of anticoagulants
CPT/HCPCS: 36415; 64490; 64491; 80053; 82306; 82607; 82728; 83540; 83550; 84703; 85025; 85610; J0665

== ENCOUNTER 2025-04-10 10:07 | Outpatient (OUT) | payer MEDICARE, MEDICAID, SELFPAY ==
--- OUTSIDE RECORDS SUMMARY | 2025-04-10 10:21 | XMS_ITS | CCD ---
Author Organization [facility] Care Team Providers Care Sales Representative Adding Machines Name Role Phone Unavailable Primary Care Provider UnavailROSELINE Johnson Referring Unavailable Viktor Sotelo Unavailable Viktor Sotelo MD Primary Care Provider MD Viktor Sotelo Primary Care Provider MD Cornell Mcnair Emergency Provider [phone] MD Eduardo Swain Admit Provider MD Eduardo Swain Attending Provider DO Urbano Palma Other Provider OSVALDO Oconnor Emergency Provider MD Viktor Sotelo Primary Care Provider [phone] DO Urbano Palma Attending Provider [phone] DO Michael Cerda Emergency Provider DO Delaney Carlisle Attending Provider MD Viktor Sotelo Primary Care Provider DO Urbano Palma Attending Provider MD Eduardo Swain Admit Provider [phone] MD Eduardo Swain Attending Provider Unavailable Unavailable MD Dustin Cody Admit Provider MD Dustin Cody Attending Provider VIKTOR SOTELO Primary Care Physician MD Viktor Sotelo Primary Care Provider [phone] DO Urbano Palma Attending Provider [phone] Parminderlorene DO Michael Murrieta Emergency Provider MD Eduardo Swain Admit Provider MD Eduardo Swain Attending Provider [phone] MD Dustin Cody Admit Provider MD Dustin Cody Attending Provider ViscDO Urbano lazar Admit Provider DO Raffaele Ellsworth Emergency Provider MD Toribio Cerda Admit Provider MD Toribio Cerda Attending Provider MD Viktor Sotelo Primary Care Provider Louie, [...] Jennings Other Provider DUANE Paiz Other Provider [phone] DO Mahad Mandel Other Provider [phone] MD Luciano Pedro Other Provider DO Gerry Noble Other Provider MD Mike Smart Other Provider [phone] MD Marylu Kemp Other Provider [phone] Donny ANP- Afshan Other Provider MD Faby Watts Other Provider [phone] MD Mitesh Hoffman Other Provider MD Sintia Gan Other Provider MD Siobhan Zuniga Other Provider DO Dennis Espinoza Other Provider [phone] MD Dawson Branham Other Provider MD Yossi Peterson Other Provider Glynn, MEDICAL ASSISTANT-C Gretta Helms Other Provider MD Yonny Bazan [...] Provider MD Toribio Cerda Admit Provider [phone] MD Toribio Cerda Attending Provider Niles Ke Emergency Provider MD Eduardo Swain Admit Provider [phone] MD Eduardo Swain Attending Provider MD Michael Viveros Attending Provider [phone] Sanchez, Dr. Viktor Pack Primary Care Unav [...] Sotelo, MD Viktor Leone Primary Care Provider [phone] MD Eh Jennings Other Provider Unavailable NE, [...] Sanchez PATINO, Viktor Leone Primary Care Provider Estela Chung PA-C Attending Provider Zaida PATINO, Nimesh Attending Provider Guille PATINO, Michael Attending Provider Viktor Sotelo MD Primary Care Provider [phone] Michael Viveros MD Attending Provider Zaida PATINO, Nimesh Attending Provider Gijuju PATINO, Andri Attending Provider Gijuju PATINO, Andrius Vytautas Attending Unavailable Giedrareyna PATINO, Andrius Vytautas Attending Unavailable Alis PATINO, Andrius Vytautas Attending Unavailable Gisteverareyna PATINO, Andrius Vytautas Attending Unavailable Viktor Sotelo MD Primary Care Provider Nimesh Cerda MD Attending Provider [phone] Gaurav Oliver MD Attending Provider Michael VIVEROS [...] Primary Care Unavailable Nimesh Cerda Admitting Unavailab Nmiesh Kerns Attending Unavailab Gaurav Abebe Admitting Unavailable [...] (qualifier value), Itching, Unknown [facility] (2 sources) HYDROmorphone Drug Allergy 9 Itching [facility] (19 sources) HYDROmorphone; 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: [HYDROmorphone] Drug Allergy 9 Itching [facility] (1 source) HYDROmorphone Drug Allergy [facility] (1 source) Fluarix 6224-7906 (PF) Drug allergy (disorder) 2 [facility] Medications Current Medications Medication [...] cysto., # 2 tab(s), Refills(s) 0, Pharmacy: [facility]/pharmacy #[id number], 167, cm, 04/28/23 10:12:00 EST, Height/Length Dosing, 111, kg, 04/28/23 10:12:00 EST, Weight Dosing Start Date: 06/02/24 Status: Ordered Start: 03-03-2019 End: 03-05-2019 take [id number] mg by mouth every twelve hours Ciprofloxacin [...] procedure, # 2 cap(s), Refills(s) 0, Pharmacy: [facility]/pharmacy #[id number], 167, cm, 09/03/22 13:32:00 EDT, Height/Length [...] Comment on above: Take 1 capsule by [facility] once daily. LORazepam 1 mg [...] 2019 1:00am February 18, 2020 5:44pm Vit No.551-Gkot-Itqru ( Vitamin) 27 mg iron- 800 mcg Tablet (20 sources) Start: 12-11-2021 End: 09-03-2022 take 1 tablet by mouth once daily Vit No.788-Zooj-Vnuqi ( Vitamin) 27 mg iron- 800 mcg Tablet Discontinued 1 TAB PO Daily December 10, 2021 11:00pm September 03, 2022 6:39pm Start: 12-11-2021 End: 09-03-2022 take 1 tablet by mouth once daily Vit No.806-Bvcd-Otwtj ( Vitamin) 27 mg iron- 800 mcg Tablet Discontinued 1 TAB PO Daily December 11, 2021 12:00am September 03, 2022 7:39pm Start: 12-11-2021 take 1 tablet by tejas th once daily Vit No.905-Uzgw-Iimbg ( Vitamin) 27 mg iron- 800 mcg Tablet Active 1 TAB PO Daily December 10, 2021 11:00pm Start: 12-11-2021 take 1 tablet by tejas th once daily Vit No.595-Mqki-Hgrat ( Vitamin) 27 mg iron- 800 mcg [...] 12.5 mg supposi tory Discontinued 12.5 MG WA Q6H as needed for Nausea And Vomiting [...] 1 tablet by mouth twice daily Pyridostigmine Cotuit 60 mg tablet Discontinued 1 TAB PO [...] 4 Episodic Other aftercare (1 source) Other [place] [facility] (current) drug therapy; 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: [OTH [employer] CURRENT DRUG THERAPY] Onset: 3 Episodic Other aftercare (1 source) Long-term current use of anticoagulant; 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: [shelter (current) use of anticoagulants] Onset: 4 Episodic [...] signed up for this yet, please contact [employer] at [phone] to get signed up today. Language Information Language assistance services are available as needed. Normal [facility] Urology Office/Clinic Noteon 01-02-2025 Urology Office/Clinic [...] cysto., # 2 tab(s), Refills(s) 0, Pharmacy: [facility]/pharmacy #[id number], 167, cm, 04/28/23 10:12:00 EST, Height/Length Dosing, 111, kg, 04/28/23 10:12:00 EST, Weight Dosing 60536 Measure Post Void residual urine and/or bladder capacity by US- non-imaging E&M of Est. Patient Low 20-29 Min 65721 Urnls Dip Stick Auto w/o Microscopy POC 54785 2. Incomplete bladder emptying (R33.9: Retention of urine, unspecified) PVR (cc): 04/09/21 - 58 09/03/22 - 254 04/27/23 - 161 06/02/24 - 286 Today - 74ml. Improved. Recommend timed voids and double void maneuvers. Ordered: E&M of Est. Patient Low 20-29 Min 08166 3. 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 Abd MRI 01/21/23 [facility] - mildly septated T2 hyperintense lesion involving superior pole of L kidney measuring up to 9mm (does not appear to enhance on postcontrast imaging). An additional subcentimeter T2 hyperintense lesion involving inferior pole of L kidney measuring up to about 4mm (too small for accurate characterization). R kidney unremarkable. CRESCENCIO 05/30/24 [facility] - cystic changes with questionable kidney stones. CT 07/04/24 - no evidence of prior lesion. Resolved. No further imaging indicated. Ordered: E&M of Est. Patient Low 20-29 Min 23296 Follow-up With When Contact Information [facility] Additional Instructions: Only if needed/new problems [...] Protein Urine Dipstick: Negative (01/02/25 08:30:00) Specific [place] Urine Dipstick: 1.015 (01/02/25 08:30:00) Urine Appearance Urine Dipstick: Slightly cloudy (01/02/25 08:30:00) Urine Color Urine Di (more content not included)... Normal [facility] Comment on above: Result Comment: Elec tronically Signed By: ESTELA CHUNG PA-C\.br\Date and Time Signed: 01/02/25 10:35 EDT Basic Metabolic Panelon 05-2 9-2025 Anion gap [Moles/Vol] 10.7 mmol/L Normal 6.0-15.0 Th e [facility] Comment on above: Performed By: #### B MP, PT, PTT #### [address] Calcium [Mass/Vol] 8.8 mg/dL Normal 8.6-10.3 [facility] Comment on above: Performed By: #### B MP, PT, PTT #### [address] Chloride [Moles/Vol] 106 mmol/L Normal 98-107 [facility] Comment on above: Performed By: #### B MP, PT, PTT #### [address] CO2 [Moles/Vol] 24.9 mmol/L Normal 21.0-31.0 [facility] Comment on above: Performed By: #### B MP, PT, PTT #### [address] Creatinine [Mass/Vol] 0.92 mg/dL Normal 0.60-1.20 [facility] Comment on above: Performed By: #### B MP, PT, PTT #### [address] Creatinine Clr Calc Pharmacy 104.07 Normal [facility] Comment on above: Result Comment: PERF ORMED BY: [place] [address] PATHOLOGIST WHEELCHAIR VAN OPERATOR FIRST RESPONDER KANDACE CANTU M.D. Performed By: #### B MP, PT, PTT #### [place] [address] [place] GFR/1.73 sq M.predicted MDRD (S/P/Bld) [Vol rate/Area] mL/min/{1.73_m2} Normal [facility] Comment on above: Performed By: #### B MP, PT, PTT #### [place] [address] [place] Glucose [Mass/Vol] 99 mg/dL Normal 70-100 [facility] Comment on above: Result Comment: [place] Glucose Reference Range is dependent on time and content of last meal. Glucose of more than 200 mg/dL in a nonstressed, ambulatory subject supports the diagnosis of Diabetes Mellitus. ADA recommended reference range Performed By: #### B MP, PT, PTT #### [facility] [address] Potassium [Moles/Vol] 3.6 mmol/L Normal 3.5-5.1 [facility] Comment on above: Performed By: #### B MP, PT, PTT #### [facility] [address] Sodium [Moles/Vol] 138 mmol/L Normal 136-145 [facility] Comment on above: Performed By: #### B MP, PT, PTT #### [facility] [address] [place] [address] [place] Urea nitrogen [Mass/Vol] 11 mg/dL Normal 7-25 [facility] Comment on above: Performed By: #### B MP, PT, PTT #### [facility] [address] [place] [address] [place] Basophils Auto (Bld) [#/Vol] Ordered By: Franc Barlow on 11-17-2024 Basophils (Bld) [#/Vol] Automated basophil count 0.0-0.2 [facility] Basophils/100 WBC Auto (Bld) Ordered By: Franc Barlow on 11-17-2024 Basophils/100 WBC (Bld) Automated basophil % . [facility] Calcium [Mass/volume] in Ser um or PlasmaOrdered By: Franc Barlow on 11-17-2024 Calcium [Mass/Vol] Calcium [Mass/volume ] in Serum or Plasma 8.6-10.3 [facility] Carbon dioxide, total [Moles /volume] in Serum or PlasmaOrdered By: Franc Barlow on 11-17-2024 CO2 [Moles/Vol] Carbon dioxide, tota l [Moles/volume] in Serum or Plasma 21.0-31.0 [facility] Chloride [Moles/volume] in S mac or PlasmaOrdered By: Franc Barlow on 11-17-2024 Chloride [Moles/Vol] Chloride [Moles/vol ume] in Serum or Plasma 98-107 [facility] Complete Blood Count Auto Di ffon 11-17-2024 Basophils (Bld) [#/Vol] 0.1 10*3/uL Normal 0.0-0.2 [facility] Comment on above: Result Comment: PERF ORMED BY: [place] [address] PATHOLOGIST WHEELCHAIR VAN OPERATOR FIRST RESPONDER KANDACE CANTU M.D. Performed By: #### C BC #### [address] Basophils/100 WBC (Bld) 1.4 % Normal . [facility] Comment on above: Performed By: #### C BC #### [address] Eosinophils (Bld) [#/Vol] 0.1 10*3/uL Normal 0.0-0.45 [facility] Comment on above: Performed By: #### C BC #### [address] Eosinophils/100 WBC (Bld) 2.4 % Normal . [facility] Comment on above: Performed By: #### C BC #### [address] Erythrocyte distribution width (RBC) [Ratio] 13.7 % Normal 11.9-15.3 [facility] Comment on above: Performed By: #### C BC #### [address] Hematocrit (Bld) [Volume fraction] 40.0 % Normal 34.0-46.4 [facility] Comment on above: Performed By: #### C BC #### [address] Hemoglobin (Bld) [Mass/Vol] 14.0 g/dL Normal 11.8-15.4 [facility] Comment on above: Performed By: #### C BC #### [address] Lymphocytes (Bld) [#/Vol] 1.2 10*3/uL Normal 1.00-4.8 [facility] Comment on above: Performed By: #### C BC #### [address] Lymphocytes/100 WBC (Bld) 30.9 % Normal . [facility] Comment on above: Performed By: #### C BC #### [address] MCH (RBC) [Entitic mass] 34.4 pg High 24.7-34.3 [facility] Comment on above: Performed By: #### C BC #### [address] MCV (RBC) [Entitic vol] 98.0 fL Normal 80-100 [facility] Comment on above: Performed By: #### C BC #### [address] Mean Corpuscular HGB Conc 35.1 g/dL High 32.0-35.0 [facility] Comment on above: Performed By: #### C BC #### [address] Monocytes (Bld) [#/Vol] 0.5 10*3/uL Normal 0.0-0.8 [facility] Comment on above: Performed By: #### C BC #### [address] Monocytes/100 WBC (Bld) 12.7 % Normal . [facility] Comment on above: Performed By: #### C BC #### [address] Neutrophils (Bld) [#/Vol] 2.1 10*3/uL Normal 1.8-7.7 [facility] Comment on above: Performed By: #### C BC #### [address] Neutrophils/100 WBC (Bld) 52.6 % Normal . [facility] Comment on above: Performed By: #### C BC #### [facility] [address] NRBC% 0.1 /100{WBC} Normal 0-0.5 [facility] Comment on above: Performed By: #### C BC #### [facility] [address] [place] [id number] [facility] Platelet mean volume (Bld) [Entitic vol] 7.0 fL Normal 6.3-10.7 [facility] Comment on above: Performed By: #### C BC #### [address] Platelets (Bld) [#/Vol] 199 10*3/uL Normal 150-450 [facility] Comment on above: Performed By: #### C BC #### [address] RBC (Bld) [#/Vol] 4.08 10*6/uL Normal 3.60-5.00 [facility] Comment on above: Performed By: #### C BC #### [address] WBC (Bld) [#/Vol] 3.9 10*3/uL Normal 3.8-11.6 [facility] Comment on above: Performed By: #### C BC #### [address] Creatinine [Mass/volume] in Serum or PlasmaOrdered By: Franc Barlow on 11-17-2024 Creatinine [Mass/Vol] Creatinine [Mass/v olume] in Serum or Plasma 0.60-1.20 [facility] ECG 12 lead ECGon 11-17-2024 ECG 12 lead ECG [facility] [place] [address] [place] [address] Electrocardiograph Report Signed Patient: Maricarmen Anderson MR#: [id number] : 1980 Acct:[id number] Age/Sex: 44 / F ADM Date: 11/17/24 Loc: [place] Room: Type: [facility] Attending Dr: Gaurav Oliver MD [...] are now present Confirmed by Palomo Manzo ([id number]) on 11/17/2024 7:13:41 PM Referred By: Electronically Signed By: Palomo Manzo Transcribed By: MUS Signed By Palomo Manzo MD 11/17/241912 Normal [facility] Eosinophils Auto (Bld) [#/Vo l]Ordered By: Franc Barlow on 11-17-2024 Eosinophils (Bld) [#/Vol] Automated eosinophil count 0.0-0.45 [facility] Eosinophils/100 WBC Auto (Bl d)Ordered By: Franc Barlow on 11-17-2024 Eosinophils/100 WBC (Bld) Automated eosinophil % . [facility] Erythrocyte distribution wid th Auto (RBC) [Ratio]Ordered By: Franc Bralow on 11-17-2024 Erythrocyte distribution width (RBC) [Ratio] Erythrocyte distribution width [Ratio] by Automated count 11.9-15.3 [facility] Glucose [Mass/volume] in Ser um or PlasmaOrdered By: Franc Barlow on 11-17-2024 Glucose [Mass/Vol] Glucose [Mass/volume ] in Serum or Plasma 70-100 [facility] Comment on above: ADA recommended refe [...] gonadotropin (hCG) detection by immunoassay [facility] HCG,Urineon 11-17-2024 Beta HCG ( test) Ql (U) Negative Normal [facility] Comment on above: Result Comment: PERF ORMED BY: [place] [address] PATHOLOGIST WHEELCHAIR VAN OPERATOR FIRST RESPONDER KANDACE CANTU M.D. Performed By: #### U HCG #### [address] Hematocrit Auto (Bld) [Volum e fraction]Ordered By: Franc Barlow on 11-17-2024 Hematocrit (Bld) [Volume fraction] Hematocrit [Volume Fraction] of Blood by Automated count 34.0-46.4 [facility] Hemoglobin [Mass/volume] in BloodOrdered By: Franc Barlow on 11-17-2024 Hemoglobin (Bld) [Mass/Vol] Hemoglobin [Mass/volume] in Blood 11.8-15.4 [facility] INR in Platelet poor plasma by Coagulation assayOrdered By: Franc Barlow on 11-17-2024 INR Coag (PPP) [Relative time] INR in Platelet poor plasma by Coagulation assay [facility] Comment on above: INR Therapeutic Rang [...] - 4.5 Roni 11-17-2024 L ----- Specimen: [id number] Received: 11/17/24 Status: ABRAM Nance Num: [id number] Spec Type: Surgical Subm Dr: Gaurav Oliver MD Tissues: A Gross Only (INFUSAPORT) Procedures: Level 1 Gross Age/ Patient Sex Location Account Attending Physician Maricarmen Anderson 44/F [place] [id number] Gaurav Oliver MD SPEC NUM: [id number] RECD: 11/17/24 STATUS: ABRAM NANCE NUM: [id number] ALEN: 11/17/24-[address] [facility] [address]: Gaurav Oliver MD ENTERED: 11/17/[address] [facility] [address]: CECILIO TYPE: Surgical DEPT: S ENTERED BY: [id number] RECV BY: [id number] ORDERED: Level 1 Gross ORDERED: Level 1 Gross Pathological Diagnosis Replacement removal of the nonfunctioning medical typist: -An Intact piece of Rniifi-i-Zwoe. Gross only examination Clinical Information Nonfunctioning Uyrtja-y-Szue Gross Description Part A is received fresh labeled with the patients name, date of , and Ukwdpk-q-Pdrn is a white, plastic like disc, 2.2 cm in diameter by 1.1 cm in thickness. 1 surface of the specimen displays a rubbery, translucent, somewhat depressible center, 0.9 cm in diameter that is engraved CT . The opposing surface of the specimen is engraved PORT-A-CATH [id number] . Extending from the disc is a cylindrical segment of white rubbery tubing, 25 cm in length by 0.3 cm in diameter that is engraved with the numerals 10 and 20. GROSS ONLY- Gross photographs are taken Specimen: [id number] Received: 11/17/24 Status: ABRAM Nance Num: [id number] Spec Type: Surgical Subm Dr: Gaurav Oliver MD Tissues: A Gross Only (INFUSAPORT) Procedures: Level 1 Gross Patient: Maricarmen Anderson [id number] (Continued) Specimen: [id number] Received: 11/17/24 (Continued) Signed (signature on file) Chin-Brennan Rivers, MD 11/18/24 1421 Specimen: [id number] Received: 11/17/24 Status: ABRAM Nance Num: [id number] Spec Type: Surgical Subm Dr: Gaurav Oliver MD Tissues: A Gross Only (INFUSAPORT) Procedures: Level 1 Gross Patient: Maricarmen Anderson [id number] (Continued) Specimen: [id number] Received: 11/17/24 (Continued) Microscopic Description Not provided CPT Codes 72945 GROSS PHOTO GROSS PHOTO Specimen: [id number] Received: 11/17/24-1313 Status: ABRAM Nance Num: [id number] Spec Type: Surgical Subm Dr: Gaurav Oliver MD Tissues: A Gross Only (INFUSAPORT) Procedures: Level 1 Gross Patient: Maricarmen Anderson [id number] (Continued) Signed (signature on file) Jose Rivers MD 11/18/24 1421 Normal [facility] Leukocytes [#/volume] correc nneka for nucleated erythrocytes in Blood by Automated counOrdered By: Franc Barlow on 11-17-2024 WBC corrected for nucl RBC Auto (Bld) [#/Vol] Leukocytes [#/volume] corrected for nucleated erythrocytes in Blood by Automated coun 3.8-11.6 [facility] Lymphocytes Auto (Bld) [#/Vo l]Ordered By: Franc Barlow on 11-17-2024 Lymphocytes (Bld) [#/Vol] Lymphocytes [#/volume] in Blood by Automated count 1.00-4.8 [facility] Lymphocytes/100 WBC Auto (Bl d)Ordered By: Franc Barlow on 11-17-2024 Lymphocytes/100 WBC (Bld) Lymphocytes/100 leukocytes in Blood by Automated count . [facility] MCH Auto (RBC) [Entitic mass ]Ordered By: Franc Barlow on 11-17-2024 MCH (RBC) [Entitic mass] MCH [Entitic mass] by Automated count High 24.7-34.3 [facility] MCHC Auto (RBC) [Mass/Vol]Or dered By: Franc Barlow on 11-17-2024 MCHC (RBC) [Mass/Vol] MCHC [Mass/volume] by Automated count High 32.0-35.0 [facility] MCV Auto (RBC) [Entitic vol] Ordered By: Franc Barlow on 11-17-2024 MCV (RBC) [Entitic vol] MCV [Entitic volume] by Automated count 80-100 [facility] Monocytes Auto (Bld) [#/Vol] Ordered By: Franc Barlow on 11-17-2024 Monocytes (Bld) [#/Vol] Automated blood monocyte count 0.0-0.8 [facility] Monocytes/100 WBC Auto (Bld) Ordered By: Franc Barlow on 11-17-2024 Monocytes/100 WBC (Bld) Automated monocyte % . [facility] Neutrophils Auto (Bld) [#/Vo l]Ordered By: Franc Barlow on 11-17-2024 Neutrophils (Bld) [#/Vol] Neutrophils [#/volume] in Blood by Automated count 1.8-7.7 [facility] Neutrophils/100 WBC Auto (Bl d)Ordered By: Franc Barlow on 11-17-2024 Neutrophils/100 WBC (Bld) Automated neutrophil % . [facility] No Panel InformationOrdered By: Franc Barlow on 11-17-2024 Estimated GFR (CKD-EPI) > 60.0 mL/Min [facility] Creatinine Clearance (Chem 104.07 [facility] Nucleated erythrocytes [Pres ence] in Blood by Automated countOrdered By: Franc Barlow on 11-17-2024 Nucleated RBC Auto Ql (Bld) Nucleated erythrocytes [Presence] in Blood by Automated count 0-0.5 [facility] Partial Thromboplastin Timeo n 11-17-2024 aPTT Coag (Bld) [Time] 25.8 s Normal 25.1-36.5 Th e [facility] Comment on above: Result Comment: A he matocrit value greater than 55% may lead to inaccurate results in coagulation testing. Patients having hematocrit values >55% require a special collection tube for coagulation studies. Please contact the laboratory at [phone] for redraw instructions. PERFORMED BY: [place] [address] PATHOLOGIST WHEELCHAIR VAN OPERATOR FIRST RESPONDER KANDACE CANTU M.D. Performed By: #### B MP, PT, PTT #### [address] Platelet mean volume Auto (B ld) [Entitic vol]Ordered By: Franc Barlow on 11-17-2024 Platelet mean volume (Bld) [Entitic vol] Platelet mean volume [Entitic volume] in Blood by Automated count 6.3-10.7 [facility] Platelets Auto (Bld) [#/Vol] Ordered By: Franc Barlow on 11-17-2024 Platelets (Bld) [#/Vol] Platelets [#/volume] in Blood by Automated count 150-450 [facility] Potassium [Moles/volume] in Serum or PlasmaOrdered By: Franc Barlow on 11-17-2024 Potassium [Moles/Vol] Potassium [Moles/v olume] in Serum or Plasma 3.5-5.1 [facility] Prothrombin Time INRon 11-17 INR Coag (PPP) [Relative time] 1.2 {INR} Normal [facility] Comment on above: Result Comment: [...] By: #### B MP, PT, PTT #### [facility] [address] [place] [address] [facility] PT Coag (PPP) [Time] 13.1 s High 9.0-12.9 [facility] Comment on above: Result Comment: A he matocrit value greater than 55% may lead to inaccurate results in coagulation testing. Patients having hematocrit values >55% require a special collection tube for coagulation studies. Please contact the laboratory at [phone] for redraw instructions. Performed By: #### B MP, PT, PTT #### [facility] [address] [place] [address] [facility] Prothrombin time (PT)Ordered By: Franc Barlow on 11-17-2024 PT Coag (PPP) [Time] Prothrombin time (PT) High 9.0- 12.9 [facility] Comment on above: A hematocrit value g reater than 55% may lead to inaccurate results in coagulation testing. Patients having hematocrit values >55% require a special collection tube for coagulation studies. Please contact the laboratory at [phone] for redraw instructions. RBC Auto (Bld) [#/Vol]Ordere d By: Franc Barlow on 11-17-2024 RBC (Bld) [#/Vol] Erythrocytes [#/volu me] in Blood by Automated count 3.60-5.00 [facility] Serum or plasma anion gap de terminationOrdered By: Franc Barlow on 11-17-2024 Anion gap [Moles/Vol] Serum or plasma an ion gap determination 6.0-15.0 [facility] Sodium [Moles/volume] in Ser um or PlasmaOrdered By: Franc Barlow on 11-17-2024 Sodium [Moles/Vol] Sodium [Moles/volume ] in Serum or Plasma 136-145 [facility] Urea nitrogen [Mass/volume] in Serum or PlasmaOrdered By: Franc Barlow on 11-17-2024 Urea nitrogen [Mass/Vol] Urea nitrogen [Mass/volume] in Serum or Plasma 7-25 [facility] WBC Auto (Bld) [#/Vol]Ordere d By: Franc Barlow on 11-17-2024 WBC (Bld) [#/Vol] Leukocytes [#/volume ] in Blood by Automated count 3.8-11.6 [facility] X-ray reportOrdered By: Adam Escamilla on 11-17-2024 Study report [facility] Main [address] [address] XRay Report Signed Patient: Maricarmen Anderson MR#: [id number] : 1980 Acct:[id number] Age/Sex: 44 / F ADM Date: 5 Loc: [place] Room: Type: [facility] Attending Dr: Gaurav Oliver MD Copies to: Gaurav Oliver MD~ Ordering Provider: Gaurav Oliver MD Date of Service: 11/17/24 XR/XR chest 1V portable: POST INFUSAPORT EXCHANGE RIGHT SIDE XR chest 1V portable 11/17/2024 1:04 PM SIGNS AND SYMPTOMS: ^POST INFUSAPORT EXCHANGE RIGHT SIDE PROTOCOL: Frontal radiograph the chest COMPARISON: 12/19/2022 FINDINGS: The trachea is midline. There is a new right-sided Fjshvz-o-Xhxo is present with the tip in the superior vena cava. There is no pneumothorax. There is a dual lead pacer device on the left. The heart and mediastinal structures are within normal limits. The lung parenchyma is clear. The bony thorax is intact. XR/XR chest 1V portable IMPRESSION: There is a new right-sided Bbgvmt-j-Irxm is present with the tip in the superiorvena cava. There is no pneumothorax. Impression dictated by: Adam Escamilla M.D. 11/17/2024 1:19 PM Dictation Location: [place] [address] Transcribed By: RAFA 11/17/24 1319 Dictated By: Adam Escamilla II, MD 11/17/24 1317 Signed By: 11/17/24 1319 [facility] Work Phone: XR chest 1V portableon 11-17 XR chest 1V portable [facility] Main [address] [address] XRay Report Signed Patient: Maricarmen Anderson MR#: [id number] : 1980 Acct:[id number] Age/Sex: 44 / F ADM Date: 11/17/24 Loc: [place] Room: Type: [facility] Attending Dr: Gaurav Oliver MD Copies to: Gaurav Oliver MD Ordering Provider: Gaurav Oliver MD Date of Service: 11/17/24 XR/XR chest 1V portable: POST INFUSAPORT EXCHANGE RIGHT SIDE XR chest 1V portable 11/17/2024 1:04 PM SIGNS AND SYMPTOMS: POST INFUSAPORT EXCHANGE RIGHT SIDE PROTOCOL: Frontal radiograph the chest COMPARISON: 12/19/2022 FINDINGS: The trachea is midline. There is a new right-sided Vwnnve-q-Mbnc is present with the tip in the superior vena cava. There is no pneumothorax. There is a dual lead pacer device on the left. The heart and mediastinal structures are within normal limits. The lung parenchyma is clear. The bony thorax is intact. XR/XR chest 1V portable IMPRESSION: There is a new right-sided Hfxytl-q-Bbhp is present with the tip in the superior vena cava. There is no pneumothorax. Impression dictated by: Adam Escamilla M.D. 11/17/2024 1:19 PM Dictation Location: [place] [address] Transcribed By: [facility] 11/17/24 1319 Dictated By: Adam Escamilla II, MD 11/17/24 1317 Signed By: 11/17/24 1319 Normal [facility] aPTT in Platelet poor plasma by Coagulation assayOrdered By: Franc Barlow on 11-17-2024 aPTT Coag (PPP) [Time] Activated partial thromboplastin time (aPTT) in platelet poor plasma by coagulation a 25.1-36.5 [facility] Comment on above: A hematocrit value g reater than 55% may lead to inaccurate results in coagulation testing. Patients having hematocrit values >55% require a special collection tube for coagulation studies. Please contact the laboratory at [phone] for redraw instructions. Basophils Auto (Bld) [#/Vol] on 10-31-2024 Basophils (Bld) [#/Vol] Automated basophil count 0.0-0.1 [facility] Basophils/100 WBC Auto (Bld) on 10-31-2024 Basophils/100 WBC (Bld) Automated basophil % 0.2-2.0 [facility] Eosinophils/100 WBC Auto (Bl d)on 10-31-2024 Eosinophils/100 WBC (Bld) Automated eosinophil % Low 0.9-7.0 [facility] Erythrocyte distribution wid th Auto (RBC) [Ratio]on 10-31-2024 Erythrocyte distribution width (RBC) [Ratio] Erythrocyte distribution width [Ratio] by Automated count 11.0-15.0 [facility] Estimated glomerular filtrat ion rate (GFR) non- Americanon 10-31-2024 GFR/1.73 sq M.predicted among non-blacks MDRD (S/P/Bld) [Vol rate/Area] Estimated glomerular filtration rate (GFR) non- Low >=60 mL/min/1.73 m 2 [facility] Hematocrit Auto (Bld) [Volum e fraction]on 10-31-2024 Hematocrit (Bld) [Volume fraction] Hematocrit [Volume Fraction] of Blood by Automated count 36.0-48.0 [facility] Hemoglobin [Mass/volume] in Bloodon 10-31-2024 Hemoglobin (Bld) [Mass/Vol] Hemoglobin [Mass/volume] in Blood 12.0-16.0 [facility] Iron binding capacity [Mass/ volume] in Serum or Plasmaon 10-31-2024 Iron binding capacity [Mass/Vol] Iron binding capacity [Mass/volume] in Serum or Plasma 250.0-450.0 [facility] Iron saturation [Mass Fracti on] in Serum or Plasmaon 10-31-2024 Iron saturation [Mass fraction] Iron saturation [Mass Fraction] in Serum or Plasma [facility] Laboratory - Chemistry and C hemistry - challengeon 10-31-2024 Calcium [Mass/Vol] 8.8 mg/dL 8.5-10.1 [facility] Chloride [Moles/Vol] 104 mmol/L 98-107 [facility] CO2 [Moles/Vol] 28.6 mmol/L 21.0-32.0 [facility] Cobalamin (Vitamin B12) [Mass/Vol] 655 pg/mL 232-1245 [facility] Comment on above: Performed at: - [facility] [id number] [place], [place] [id number] Director: Prabhakar Warren PhD, Phone: [phone] Creatinine [Mass/Vol] 1.06 mg/dL High 0.55-1.02 [facility] Ferritin [Mass/Vol] 136.0 ng/mL 8.0-252.0 [facility] GFR/1.73 sq M.predicted MDRD (S/P/Bld) [Vol rate/Area] mL/min/{1.73_m2} >=60 mL/min/1.73 m 2 [facility] Glucose [Mass/Vol] 132 mg/dL High 74-106 [facility] Iron [Mass/Vol] 59.0 ug/dL 50.0-170.0 [facility] Potassium [Moles/Vol] 3.3 mmol/L Low 3.5-5.1 [facility] Sodium [Moles/Vol] 137 mmol/L 136-145 [facility] Urea nitrogen [Mass/Vol] 8.0 mg/dL 7.0-18.0 [facility] Urea nitrogen/Creatinine [Mass ratio] 7.5 mg/mg [facility] Laboratory - Hematology and Cell countson 10-31-2024 Immature granulocytes/100 WBC (Bld) 0.0 % 0.0-0.5 [facility] Leukocytes [#/volume] correc nneka for nucleated erythrocytes in Blood by Automated counon 10-31-2024 WBC corrected for nucl RBC Auto (Bld) [#/Vol] Leukocytes [#/volume] corrected for nucleated erythrocytes in Blood by Automated coun Low 4.0-11.0 [facility] Lymphocytes Auto (Bld) [#/Vo l]on 10-31-2024 Lymphocytes (Bld) [#/Vol] Lymphocytes [#/volume] in Blood by Automated count Low 1.2-3.8 [facility] Lymphocytes/100 WBC Auto (Bl d)on 10-31-2024 Lymphocytes/100 WBC (Bld) Lymphocytes/100 leukocytes in Blood by Automated count 20.5-60.0 [facility] MCH Auto (RBC) [Entitic mass ]on 10-31-2024 MCH (RBC) [Entitic mass] MCH [Entitic mass] by Automated count 26.7-34.0 [facility] MCHC Auto (RBC) [Mass/Vol]on 10-31-2024 MCHC (RBC) [Mass/Vol] MCHC [Mass/volume] by Automated count 29.9-35.2 [facility] MCV Auto (RBC) [Entitic vol] on 10-31-2024 MCV (RBC) [Entitic vol] MCV [Entitic volume] by Automated count High 81.0-99.0 [facility] Monocytes Auto (Bld) [#/Vol] on 10-31-2024 Monocytes (Bld) [#/Vol] Automated blood monocyte count 0.3-0.8 [facility] Monocytes/100 WBC Auto (Bld) on 10-31-2024 Monocytes/100 WBC (Bld) Automated monocyte % High 1.7-12.0 [facility] Neutrophils Auto (Bld) [#/Vo l]on 10-31-2024 Neutrophils (Bld) [#/Vol] Neutrophils [#/volume] in Blood by Automated count Low 1.4-6.5 [facility] Neutrophils/100 WBC Auto (Bl d)on 10-31-2024 Neutrophils/100 WBC (Bld) Automated neutrophil % 43.0-75.0 [facility] No Panel Informationon 10-31 25-Hydroxy Vitamin D Total 39.3 ng/mL [facility] Comment on above: <20 ng/mL Vit D defi cient20-<30 ng/mL Vit D ssuqszubznei05-910 ng/mL Vit D sufficient>100 ng/mL Potential Toxicity Eosinophils # (Auto) 0.0 10 3/uL 0.0-0.7 [facility] Immature Granulocyte # (Auto) 0.00 10 3/uL 0.00-0.03 [facility] Platelet mean volume Auto (B ld) [Entitic vol]on 10-31-2024 Platelet mean volume (Bld) [Entitic vol] Platelet mean volume [Entitic volume] in Blood by Automated count 9.5-13.5 [facility] Platelets Auto (Bld) [#/Vol] on 10-31-2024 Platelets (Bld) [#/Vol] Platelets [#/volume] in Blood by Automated count Low 150-450 [facility] RBC Auto (Bld) [#/Vol]on RBC (Bld) [#/Vol] Erythrocytes [#/volu me] in Blood by Automated count Low 4.20-5.40 [facility] Serum or plasma anion gap de terminationon 10-31-2024 Anion gap [Moles/Vol] Serum or plasma an ion gap determination [facility] INR in Platelet poor plasma by Coagulation assayon 09-26-2024 INR Coag (PPP) [Relative time] INR in Platelet poor plasma by Coagulation assay [facility] Comment on above: DESIRED INR:2.0-3.0 CONDITIONS NOT LISTED BELOW2.5-3.5 FOR PROSTHETIC HEART VALVE REPLACEMENT2.5-3.5 RECURRENT THROMBOSIS No Panel Informationon 09-26 Human Chorionic Gonadotropin, Qual Negative NEGATIVE [facility] Prothrombin time (PT)on PT Coag (PPP) [Time] Prothrombin time (PT) High 9.0- 11.6 [facility] MR cervical spine wo conon 0 08-31-2024 MR cervical spine wo con [facility] [place] [address] MRI Report Signed Patient: Maricarmen Anderson MR#: [id number] : 1980 Acct:[id number] Age/Sex: 43 / F ADM Date: 08/31/24 Loc: Room: Type: [facility] Attending Dr: Tete Snell MD Copies to: [...] Praful Manley M.D.08/31/2024 10:20 AM Dictation Location: [place] [address] Transcribed By: [facility] 08/31/24 1020 Dictated By: Praful Manley MD 08/31/24 0947 Signed By: 08/31/24 1020 Normal [facility] Magnetic resonance imaging r eportOrdered By: Praful Manley on 08-31-2024 Study report [facility] [place] [address] MRI Report Signed Patient: Maricarmen Anderson MR#: [id number] : 1980 Acct:[id number] Age/Sex: 43 / F ADM Date: 5 Loc: MR Room: Type: [facility] Attending Dr: Tete Snell MD Copies to: [...] Praful Manley M.D.08/31/2024 10:20 AM Dictation Location: [place] [address] Transcribed By: [facility] 08/31/24 1020 Dictated By: Praful Manley MD 08/31/24 0947 Signed By: 08/31/24 1020 [facility] Work Phone: INR in Platelet poor plasma by Coagulation assayon 07-11-2024 INR Coag (PPP) [Relative time] INR in Platelet poor plasma by Coagulation assay [facility] Comment on above: DESIRED INR:2.0-3.0 CONDITIONS NOT LISTED BELOW2.5-3.5 FOR PROSTHETIC HEART VALVE REPLACEMENT2.5-3.5 RECURRENT THROMBOSIS No Panel Informationon 07-11 Human Chorionic Gonadotropin, Qual Negative NEGATIVE [facility] Prothrombin time (PT)on 06-23 PT Coag (PPP) [Time] Prothrombin time (PT) 9.0- 11.6 [facility] Basophils Auto (Bld) [#/Vol] on 07-05-2024 Basophils (Bld) [#/Vol] Automated basophil count 0.0-0.1 [facility] Basophils/100 WBC Auto (Bld) on 07-05-2024 Basophils/100 WBC (Bld) Automated basophil % 0.2-2.0 [facility] Eosinophils/100 WBC Auto (Bl d)on 07-05-2024 Eosinophils/100 WBC (Bld) Automated eosinophil % 0.9-7.0 [facility] Erythrocyte distribution wid th Auto (RBC) [Ratio]on 07-05-2024 Erythrocyte distribution width (RBC) [Ratio] Erythrocyte distribution width [Ratio] by Automated count 11.0-15.0 [facility] Estimated glomerular filtrat ion rate (GFR) non- Americanon 07-05-2024 GFR/1.73 sq M.predicted among non-blacks MDRD (S/P/Bld) [Vol rate/Area] Estimated glomerular filtration rate (GFR) non- >=60 mL/min/1.73 m 2 [facility] Hematocrit Auto (Bld) [Volum e fraction]on 07-05-2024 Hematocrit (Bld) [Volume fraction] Hematocrit [Volume Fraction] of Blood by Automated count 36.0-48.0 [facility] Hemoglobin [Mass/volume] in Bloodon 07-05-2024 Hemoglobin (Bld) [Mass/Vol] Hemoglobin [Mass/volume] in Blood 12.0-16.0 [facility] Iron binding capacity [Mass/ volume] in Serum or Plasmaon 07-05-2024 Iron binding capacity [Mass/Vol] Iron binding capacity [Mass/volume] in Serum or Plasma 250.0-450.0 [facility] Iron saturation [Mass Fracti on] in Serum or Plasmaon 07-05-2024 Iron saturation [Mass fraction] Iron saturation [Mass Fraction] in Serum or Plasma [facility] Laboratory - Chemistry and C hemistry - challengeon 07-05-2024 Calcium [Mass/Vol] 9.2 mg/dL 8.5-10.1 [facility] Chloride [Moles/Vol] 105 mmol/L 98-107 [facility] CO2 [Moles/Vol] 28.3 mmol/L 21.0-32.0 [facility] Cobalamin (Vitamin B12) [Mass/Vol] 617 pg/mL 232-1245 [facility] Comment on above: Performed at: - [facility] [address] [id number] Director: Prabhakar Warren PhD, Phone: [phone] Creatinine [Mass/Vol] 0.94 mg/dL 0.55-1.02 [facility] Ferritin [Mass/Vol] 76.0 ng/mL 8.0-252.0 [facility] GFR/1.73 sq M.predicted MDRD (S/P/Bld) [Vol rate/Area] mL/min/{1.73_m2} >=60 mL/min/1.73 m 2 [facility] Glucose [Mass/Vol] 96 mg/dL 74-106 [facility] Iron [Mass/Vol] 116.0 ug/dL 50.0-170.0 [facility] Potassium [Moles/Vol] 4.3 mmol/L 3.5-5.1 [facility] Sodium [Moles/Vol] 143 mmol/L 136-145 [facility] Urea nitrogen [Mass/Vol] 11.0 mg/dL 7.0-18.0 [facility] Urea nitrogen/Creatinine [Mass ratio] 11.7 mg/mg [facility] Laboratory - Hematology and Cell countson 07-05-2024 Immature granulocytes/100 WBC (Bld) 0.2 % 0.0-0.5 [facility] Leukocytes [#/volume] correc nnkea for nucleated erythrocytes in Blood by Automated counon 07-05-2024 WBC corrected for nucl RBC Auto (Bld) [#/Vol] Leukocytes [#/volume] corrected for nucleated erythrocytes in Blood by Automated coun 4.0-11.0 [facility] Lymphocytes Auto (Bld) [#/Vo l]on 07-05-2024 Lymphocytes (Bld) [#/Vol] Lymphocytes [#/volume] in Blood by Automated count 1.2-3.8 [facility] Lymphocytes/100 WBC Auto (Bl d)on 07-05-2024 Lymphocytes/100 WBC (Bld) Lymphocytes/100 leukocytes in Blood by Automated count 20.5-60.0 [facility] MCH Auto (RBC) [Entitic mass ]on 07-05-2024 MCH (RBC) [Entitic mass] MCH [Entitic mass] by Automated count High 26.7-34.0 [facility] MCHC Auto (RBC) [Mass/Vol]on 07-05-2024 MCHC (RBC) [Mass/Vol] MCHC [Mass/volume] by Automated count 29.9-35.2 [facility] MCV Auto (RBC) [Entitic vol] on 07-05-2024 MCV (RBC) [Entitic vol] MCV [Entitic volume] by Automated count High 81.0-99.0 [facility] Main [place] Intraoperative Recor don 07-05-2024 Main OR Intraoperative Record Main [place] Intraoperative Record IntraOp Document Type FTURO Summary Primary Physician: Michael VIVEROS MD Finalized Date/Time: 07/05/24 13:38:20 Pt. Name: JUAN PABLO ANDERSONSTEVEN Murrieta D.O.B./Sex: 1980 Female Med Rec #: [id number] Physician: Michael VIVEROS MD Financial #: [id number] Pt. Type: O Room/Bed: / Admit/Disch: 07/05/24 12:41:15 - Institution: Case Times FTURO Entry 1 Patient Times In Room 07/05/24 13:26:00 Out Room 07/05/24 13:38:00 Procedure Times Start 07/05/24 13:32:00 Stop 07/05/24 13:35:00 Anesthesia Times Last Modified By: Jolie Caldwell 07/05/24 13:38:10 Case Attendance FTURO Entry 1 Entry 2 Entry 3 Case Attendee Michael VIVEROS MD, Kelsie E McClain PATIENTS TRANSPORTERSheyla Role Performed Surgeon - Primary Child Monitor - Primary Scrub - Primary Time In [...] Prep Agents Betadine Solution Skin. Condition Intact, [place], Warm, & Description N/A Dry Additional None [...] 07/05/24 13:38 Jolie Caldwell 07/05/24 13:38 Normal [facility] Main [place] Preoperative Recordo n 07-05-2024 Main [place] Preoperative Record Main [place] Preoperative Record Holding Area Document Type FTURO Summary Primary Physician: Michael VIVEROS MD Finalized Date/Time: 07/05/24 13:21:29 Pt. Name: MARICARMEN ANDERSON/Sex: 1980 Female Med Rec #: [id number] Physician: Michael VIVEROS MD Financial #: [id number] Pt. Type: O Room/Bed: / Admit/Disch: 07/05/24 [...] Complaints of Pain: No Skin Integrity Intact, [place], Warm, & Dry Vitals - EU Blood [...] 07/05/24 13:09 Jolie Caldwell 07/05/24 13:21 Normal [facility] Monocytes Auto (Bld) [#/Vol] on 07-05-2024 Monocytes (Bld) [#/Vol] Automated blood monocyte count 0.3-0.8 [facility] Monocytes/100 WBC Auto (Bld) on 07-05-2024 Monocytes/100 WBC (Bld) Automated monocyte % 1.7-12.0 [facility] Neutrophils Auto (Bld) [#/Vo l]on 07-05-2024 Neutrophils (Bld) [#/Vol] Neutrophils [#/volume] in Blood by Automated count 1.4-6.5 [facility] Neutrophils/100 WBC Auto (Bl d)on 07-05-2024 Neutrophils/100 WBC (Bld) Automated neutrophil % 43.0-75.0 [facility] No Panel Informationon 07-05 25-Hydroxy Vitamin D Total 31.2 ng/mL [facility] Comment on above: <20 ng/mL Vit D defi cient20-<30 ng/mL Vit D vvmzllrhntyu56-917 ng/mL Vit D sufficient>100 ng/mL Potential Toxicity Eosinophils # (Auto) 0.1 10 3/uL 0.0-0.7 [facility] Immature Granulocyte # (Auto) 0.01 10 3/uL 0.00-0.03 [facility] Operative Reporton Operative Report Operative Report [...] up arranged. Urethra was dilated from 22-30 Danish with Pavel sounds. Normal [facility] Comment on above: Result Comment: Elec tronically Signed By: Michael VIVEROS MD\.br\Date and Time Signed: 07/05/24 13:40 EST Platelet mean volume Auto (B ld) [Entitic vol]on 07-05-2024 Platelet mean volume (Bld) [Entitic vol] Platelet mean volume [Entitic volume] in Blood by Automated count 9.5-13.5 [facility] Platelets Auto (Bld) [#/Vol] on 07-05-2024 Platelets (Bld) [#/Vol] Platelets [#/volume] in Blood by Automated count 150-450 [facility] RBC Auto (Bld) [#/Vol]on RBC (Bld) [#/Vol] Erythrocytes [#/volu me] in Blood by Automated count Low 4.20-5.40 [facility] Serum or plasma anion gap de terminationon 07-05-2024 Anion gap [Moles/Vol] Serum or plasma an ion gap determination [facility] CT abdomen pelvis w conon CT abdomen pelvis w con [facility] [place] [address] [place] [address] CT Scan Report Signed Patient: Maricarmen Anderson MR#: [id number] : 1980 Acct:[id number] Age/Sex: 43 / F ADM Date: 07/04/24 Loc: CT Room: Type: [facility] Attending Dr: Michael Viveros MD Copies to: [...] Oro Jr., D.O.07/04/2024 2:58 PM Dictation Location: [place] [address] Transcribed By: RAFA 07/04/241457 Dictated By: Mitchel Oro Jr, DO 07/04/241454 Signed By: 07/04/241457 Normal [facility] Basophils Auto (Bld) [#/Vol] on 06-02-2024 Basophils (Bld) [#/Vol] Automated basophil count 0.0-0.1 [facility] Basophils/100 WBC Auto (Bld) on 06-02-2024 Basophils/100 WBC (Bld) Automated basophil % 0.2-2.0 [facility] Cholesterol in LDL Calc [Mas s/Vol]on 06-02-2024 Cholesterol in LDL [Mass/Vol] Cholesterol in LDL [Mass/volume] in Serum or Plasma by calculation [facility] Comment on above: <100 mg/dl [id number] 0-129 mg/dl NEAR OR ABOVE [id number] mg/dl BORDERLINE [id number] mg/dl HIGH>190 mg/dl VERY HIGH Cholesterol in VLDL Calc [Ma ss/Vol]on 06-02-2024 Cholesterol in VLDL [Mass/Vol] Cholesterol in VLDL [Mass/volume] in Serum or Plasma by calculation [facility] Eosinophils/100 WBC Auto (Bl d)on 06-02-2024 Eosinophils/100 WBC (Bld) Automated eosinophil % 0.9-7.0 [facility] Erythrocyte distribution wid th Auto (RBC) [Ratio]on 06-02-2024 Erythrocyte distribution width (RBC) [Ratio] Erythrocyte distribution width [Ratio] by Automated count 11.0-15.0 [facility] Estimated glomerular filtrat ion rate (GFR) non- Americanon 06-02-2024 GFR/1.73 sq M.predicted among non-blacks MDRD (S/P/Bld) [Vol rate/Area] Estimated glomerular filtration rate (GFR) non- Low >=60 mL/min/1.73 m 2 [facility] Glucose mean value [Mass/vol ume] in Blood Estimated from glycated hemoglobinon 06-02-2024 Average glucose Estimated from glycated hemoglobin (Bld) [Mass/Vol] Glucose mean value [Mass/volume] in Blood Estimated from glycated hemoglobin [facility] Hematocrit Auto (Bld) [Volum e fraction]on 06-02-2024 Hematocrit (Bld) [Volume fraction] Hematocrit [Volume Fraction] of Blood by Automated count 36.0-48.0 [facility] Hemoglobin [Mass/volume] in Bloodon 06-02-2024 Hemoglobin (Bld) [Mass/Vol] Hemoglobin [Mass/volume] in Blood 12.0-16.0 [facility] Iron binding capacity [Mass/ volume] in Serum or Plasmaon 06-02-2024 Iron binding capacity [Mass/Vol] Iron binding capacity [Mass/volume] in Serum or Plasma 250.0-450.0 [facility] Iron saturation [Mass Fracti on] in Serum or Plasmaon 06-02-2024 Iron saturation [Mass fraction] Iron saturation [Mass Fraction] in Serum or Plasma [facility] Laboratory - Chemistry and C hemistry - challengeon 06-02-2024 Calcium [Mass/Vol] 9.1 mg/dL 8.5-10.1 [facility] Chloride [Moles/Vol] 105 mmol/L 98-107 [facility] Cholesterol [Mass/Vol] 186 mg/dL <=200 [facility] Cholesterol in HDL [Mass/Vol] 72 mg/dL High 40-60 [facility] Comment on above: > or =60 mg/dl - LOW CARDIOVASCULAR RISK<40 mg/dl - HIGH CARDIOVASCULAR RISK CO2 [Moles/Vol] 29.9 mmol/L 21.0-32.0 [facility] Cobalamin (Vitamin B12) [Mass/Vol] 241 pg/mL 232-1245 [facility] Comment on above: Performed at: - [employer] [address] [id number] Director: Prabhakar Warren PhD, Phone: [phone] Creatinine [Mass/Vol] 1.16 mg/dL High 0.55-1.02 [facility] Ferritin [Mass/Vol] 78.0 ng/mL 8.0-252.0 [facility] GFR/1.73 sq M.predicted MDRD (S/P/Bld) [Vol rate/Area] mL/min/{1.73_m2} >=60 mL/min/1.73 m 2 [facility] Glucose [Mass/Vol] 101 mg/dL 74-106 [facility] Iron [Mass/Vol] 112.0 ug/dL 50.0-170.0 [facility] Potassium [Moles/Vol] 3.9 mmol/L 3.5-5.1 [facility] Sodium [Moles/Vol] 141 mmol/L 136-145 [facility] Triglyceride [Mass/Vol] 86 mg/dL <=150 [facility] Urea nitrogen [Mass/Vol] 7.0 mg/dL 7.0-18.0 [facility] Urea nitrogen/Creatinine [Mass ratio] 6.0 mg/mg [facility] Laboratory - Hematology and Cell countson 06-02-2024 HbA1c (Bld) [Mass fraction] 5.7 % 4.5-6.2 [facility] Comment on above: ADA RECOMMENDED LIMI T 4.0 - 6.0ADA THERAPEUTIC TARGET < 7.0ACTION SUGGESTED> 7.0 Immature granulocytes/100 WBC (Bld) 0.2 % 0.0-0.5 [facility] Leukocytes [#/volume] correc nneka for nucleated erythrocytes in Blood by Automated counon 06-02-2024 WBC corrected for nucl RBC Auto (Bld) [#/Vol] Leukocytes [#/volume] corrected for nucleated erythrocytes in Blood by Automated coun 4.0-11.0 [facility] Lymphocytes Auto (Bld) [#/Vo l]on 06-02-2024 Lymphocytes (Bld) [#/Vol] Lymphocytes [#/volume] in Blood by Automated count 1.2-3.8 [facility] Lymphocytes/100 WBC Auto (Bl d)on 06-02-2024 Lymphocytes/100 WBC (Bld) Lymphocytes/100 leukocytes in Blood by Automated count 20.5-60.0 [facility] MCH Auto (RBC) [Entitic mass ]on 06-02-2024 MCH (RBC) [Entitic mass] MCH [Entitic mass] by Automated count 26.7-34.0 [facility] MCHC Auto (RBC) [Mass/Vol]on 06-02-2024 MCHC (RBC) [Mass/Vol] MCHC [Mass/volume] by Automated count 29.9-35.2 [facility] MCV Auto (RBC) [Entitic vol] on 06-02-2024 MCV (RBC) [Entitic vol] MCV [Entitic volume] by Automated count 81.0-99.0 [facility] Monocytes Auto (Bld) [#/Vol] on 06-02-2024 Monocytes (Bld) [#/Vol] Automated blood monocyte count 0.3-0.8 [facility] Monocytes/100 WBC Auto (Bld) on 06-02-2024 Monocytes/100 WBC (Bld) Automated monocyte % 1.7-12.0 [facility] Neutrophils Auto (Bld) [#/Vo l]on 06-02-2024 Neutrophils (Bld) [#/Vol] Neutrophils [#/volume] in Blood by Automated count 1.4-6.5 [facility] Neutrophils/100 WBC Auto (Bl d)on 06-02-2024 Neutrophils/100 WBC (Bld) Automated neutrophil % 43.0-75.0 [facility] No Panel Informationon 06-02 25-Hydroxy Vitamin D Total 26.9 ng/mL [facility] Comment on above: <20 ng/mL Vit D defi cient20-<30 ng/mL Vit D [id number] ng/mL Vit D sufficient>100 ng/mL Potential Toxicity Eosinophils # (Auto) 0.2 10 3/uL 0.0-0.7 [facility] Immature Granulocyte # (Auto) 0.01 10 3/uL 0.00-0.03 [facility] Platelet mean volume Auto (B ld) [Entitic vol]on 06-02-2024 Platelet mean volume (Bld) [Entitic vol] Platelet mean volume [Entitic volume] in Blood by Automated count Low 9.5-13.5 [facility] Platelets Auto (Bld) [#/Vol] on 06-02-2024 Platelets (Bld) [#/Vol] Platelets [#/volume] in Blood by Automated count 150-450 [facility] RBC Auto (Bld) [#/Vol]on RBC (Bld) [#/Vol] Erythrocytes [#/volu me] in Blood by Automated count 4.20-5.40 [facility] Serum or plasma anion gap de terminationon 06-02-2024 Anion gap [Moles/Vol] Serum or plasma an ion gap determination [facility] Serum or plasma total choles terol/high density lipoprotein (HDL) cholesterol mass edu 06-02-2024 Cholesterol.total/Chol esterol in HDL [Mass ratio] Serum or plasma total cholesterol/high density lipoprotein (HDL) cholesterol mass rat [facility] Comment on above: 3.3 - 4.4 [...] 161 TODAY - 286ml. See #2. Ordered: [id number] Measure Post Void residual urine and/or bladder capacity by US- non-imaging Urnls Dip Stick Auto w/o Microscopy POC 91168 2. Urethral stricture (N35.919: Unspecified urethral stricture, [...] been obtained. Will order Local anesthesia. Ordered: [id number] Measure Post Void residual urine and/or bladder capacity by US- non-imaging Urnls Dip Stick Auto w/o Microscopy POC 37652 3. 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 Abd MRI 01/21/23 [facility] - mildly septated T2 hyperintense lesion involving [...] better look at the complex cyst. Ordered: [id number] Measure Post Void residual urine and/or bladder capacity by US- non-imaging Urnls Dip Stick Auto w/o Microscopy POC 53147 4. 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 [address] Additional Instructions: Follow up schedule [...] 06/02/2024 Tobac (more content not included)... Normal [facility] Comment on above: Result Comment: Elec tronically Signed By: ESTELA CHUNG PA-C\.br\Date and Time Signed: 06/02/24 16:50 EST\.br\Electronically Co-Signed By: Shyann Yoo\.br\Date and Time Co-Signed: 06/02/24 15:54 EST US renal BIon 05-30-2024 US renal BI [facility] Main [address] [address] Ultrasound Report Signed Patient: Maricarmen Anderson MR#: [id number] : 1980 Acct:[id number] Age/Sex: 43 / F ADM Date: 05/30/24 Loc: Room: Type: [facility] Attending Dr: Estela Chung PA-C Ordering Provider: [...] Oro Jr., D.OBeatris05/30/2024 6:31 PM Dictation Location: [place] [address] Tech: Greta Reyes Transcribed By: [facility] 05/30/241830 Dictated By: Mitchel Oro Jr, DO 05/30/241828 Signed By: 05/30/24 183 Normal [facility] APTTon 10-31-2023 aPTT Coag (Bld) [Time] 139.6 s Critically high 23.0-36. 5 [facility] Comment on above: Result Comment: IV Heparin Therapy Range: 66.0-92.0 sec Performed By: #### P TT #### [employer] [address] [place] [phone] [employer]: Breezy White MD CBCon 10-31-2023 Erythrocyte distribution width (RBC) [Ratio] 12.7 % Normal 11.8-14.4 [facility] Comment on above: Performed By: #### C BC #### [facility] [address] [place] [address] [employer]: Breezy White MD Hematocrit (Bld) [Volume fraction] 36.5 % Normal 36.3-47.1 [facility] Comment on above: Performed By: #### C BC #### [address] [address] [employer]: Breezy White MD Hemoglobin (Bld) [Mass/Vol] 12.0 g/dL Normal 11.9-15.1 [facility] Comment on above: Performed By: #### C BC #### [address] [address] [employer]: Breezy White MD MCH (RBC) [Entitic mass] 31.9 pg Normal 25.2-33.5 [facility] Comment on above: Performed By: #### C BC #### [address] [address] [employer]: Breezy White MD MCHC (RBC) [Mass/Vol] 32.9 g/dL Normal 28.4-34.8 [facility] Comment on above: Performed By: #### C BC #### [address] [address] [employer]: Breezy White MD MCV (RBC) [Entitic vol] 97.1 fL Normal 82.6-102.9 [facility] Comment on above: Performed By: #### C BC #### [address] [address] [employer]: Breezy White MD NRBC Automated 0.0 per 100 WBC Normal 0.0 [facility] Comment on above: Performed By: #### C BC #### [address] [address] [employer]: Breezy White MD Platelet mean volume (Bld) [Entitic vol] 9.9 fL Normal 8.1-13.5 [facility] Comment on above: Performed By: #### C BC #### [address] [address] [employer]: Breezy White MD Platelets (Bld) [#/Vol] 149 10*3/uL Normal 138-453 [facility] Comment on above: Performed By: #### C BC #### [address] [address] [employer]: Breezy White MD RBC (Bld) [#/Vol] 3.76 10*6/uL Low 3.95-5.11 [facility] Comment on above: Performed By: #### C BC #### [address] [address] [employer]: Breezy White MD WBC (Bld) [#/Vol] 5.0 10*3/uL Normal 3.5-11.3 [facility] Comment on above: Performed By: #### C BC #### [address] [address] [employer]: Breezy White MD APTTon 2023 aPTT Coag (Bld) [Time] 59.7 s High 23.0-36.5 [facility] Comment on above: Result Comment: IV Heparin Therapy Range: 66.0-92.0 sec Performed By: #### P TT #### [address] [address] [employer]: Breezy White MD aPTT Coag (Bld) [Time] 75.3 s High 23.0-36.5 [facility] Comment on above: Result Comment: IV Heparin Therapy Range: 66.0-92.0 sec Performed By: #### P TT #### [address] [phone] [employer]: Breezy White MD aPTT Coag (Bld) [Time] s Critically high 23.0-36. 5 [facility] Comment on above: Result Comment: IV Heparin Therapy Range: 66.0-92.0 sec Performed By: #### P TT #### [address] [id number] [employer]: Breezy White MD APTTon 10-29-2023 aPTT Coag (Bld) [Time] 22.0 s Low 23.0-36.5 [facility] Comment on above: Result Comment: IV Heparin Therapy Range: 66.0-92.0 sec Performed By: #### P TT, HEPXA, CDP, BMPX, PT #### [address] [address] [employer]: Breezy White MD Basic Metab w/rfx MGon 10-28 Anion gap [Moles/Vol] 12 mmol/L Normal 9-16 [facility] Comment on above: Performed By: #### P TT, HEPXA, CDP, BMPX, PT #### [address] [address] [employer]: Breezy White MD Calcium [Mass/Vol] 8.9 mg/dL Normal 8.6-10.4 [facility] Comment on above: Performed By: #### P TT, HEPXA, CDP, BMPX, PT #### [address] [address] [employer]: Breezy White MD Chloride [Moles/Vol] 105 mmol/L Normal 98-107 [facility] Comment on above: Performed By: #### P TT, HEPXA, CDP, BMPX, PT #### [address] [address] [employer]: Breezy White MD CO2 [Moles/Vol] 22 mmol/L Normal 20-31 [facility] Comment on above: Performed By: #### P TT, HEPXA, CDP, BMPX, PT #### [employer] [address] [place] [address] [phone] [employer]: Breezy White MD Creatinine [Mass/Vol] 0.8 mg/dL Normal 0.50-0.90 [facility] Comment on above: Performed By: #### P TT, HEPXA, CDP, BMPX, PT #### [address] [phone] [employer]: Breezy White MD GFR/1.73 sq M.predicted among non-blacks MDRD (S/P/Bld) [Vol rate/Area] mL/min/{1.73_m2} Normal >60 [facility] Comment on above: Result Comment: These results [...] P TT, HEPXA, CDP, BMPX, PT #### [address] [phone] [employer]: Breezy White MD Glucose [Mass/Vol] 82 mg/dL Normal 74-99 [facility] Comment on above: Performed By: #### P TT, HEPXA, CDP, BMPX, PT #### [address] [phone] [employer]: Breezy White MD Potassium [Moles/Vol] 4.0 mmol/L Normal 3.7-5.3 [facility] Comment on above: Performed By: #### P TT, HEPXA, CDP, BMPX, PT #### [facility] [address] [place] [address] [employer]: Breezy White MD Sodium [Moles/Vol] 139 mmol/L Normal 136-145 [facility] Comment on above: Performed By: #### P TT, HEPXA, CDP, BMPX, PT #### [address] [address] [employer]: Breezy White MD Urea nitrogen [Mass/Vol] 10 mg/dL Normal 6-20 [facility] Comment on above: Performed By: #### P TT, HEPXA, CDP, BMPX, PT #### [place] [address] [employer]: Breezy White MD CBC with Diffon 10-29-2023 Abs. Basophil <0.03 Normal 0.00-0.20 [facility] Comment on above: Performed By: #### P TT, HEPXA, CDP, BMPX, PT #### [place] [address] [employer]: Breezy White MD Abs.Imm.Granulocyte <0.03 Normal 0.00-0.30 [facility] Comment on above: Performed By: #### P TT, HEPXA, CDP, BMPX, PT #### [place] [address] [employer]: Breezy White MD Abs.Neutrophil (Seg) 2.93 k/uL Normal 1.50-8.10 [facility] Comment on above: Performed By: #### P TT, HEPXA, CDP, BMPX, PT #### [address] [address] [employer]: Breezy White MD Basophils/100 WBC (Bld) 0 % Normal 0-2 [facility] Comment on above: Performed By: #### P TT, HEPXA, CDP, BMPX, PT #### [address] [address] [employer]: Breezy White MD Eosinophils (Bld) [#/Vol] 0.08 10*3/uL Normal 0.00-0.44 [facility] Comment on above: Performed By: #### P TT, HEPXA, CDP, BMPX, PT #### [address] [address] [employer]: Breezy White MD Eosinophils/100 WBC (Bld) 2 % Normal 1-4 [facility] Comment on above: Performed By: #### P TT, HEPXA, CDP, BMPX, PT #### [place] [address] [employer]: Breezy White MD Erythrocyte distribution width (RBC) [Ratio] 12.8 % Normal 11.8-14.4 [facility] Comment on above: Performed By: #### P TT, HEPXA, CDP, BMPX, PT #### [address] [address] [employer]: Breezy White MD Hematocrit (Bld) [Volume fraction] 38.6 % Normal 36.3-47.1 [facility] Comment on above: Performed By: #### P TT, HEPXA, CDP, BMPX, PT #### [facility] [employer] [address] [place] [address] [employer]: Breezy White MD Hemoglobin (Bld) [Mass/Vol] 12.5 g/dL Normal 11.9-15.1 [facility] Comment on above: Performed By: #### P TT, HEPXA, CDP, BMPX, PT #### [address] [address] [employer]: Breezy White MD Immature granulocytes/100 WBC (Bld) 0 % Normal 0 [facility] Comment on above: Performed By: #### P TT, HEPXA, CDP, BMPX, PT #### [address] [address] [employer]: Breezy White MD Lymphocytes (Bld) [#/Vol] 1.24 10*3/uL Normal 1.10-3.70 [facility] Comment on above: Performed By: #### P TT, HEPXA, CDP, BMPX, PT #### [address] [address] [employer]: Breezy White MD Lymphocytes/100 WBC (Bld) 27 % Normal 24-43 [facility] Comment on above: Performed By: #### P TT, HEPXA, CDP, BMPX, PT #### [address] [address] [employer]: Breezy White MD MCH (RBC) [Entitic mass] 31.9 pg Normal 25.2-33.5 [facility] Comment on above: Performed By: #### P TT, HEPXA, CDP, BMPX, PT #### [address] [address] [employer]: Breezy White MD MCHC (RBC) [Mass/Vol] 32.4 g/dL Normal 28.4-34.8 [facility] Comment on above: Performed By: #### P TT, HEPXA, CDP, BMPX, PT #### [address] [address] [employer]: Breezy White MD MCV (RBC) [Entitic vol] 98.5 fL Normal 82.6-102.9 [facility] Comment on above: Performed By: #### P TT, HEPXA, CDP, BMPX, PT #### [address] [address] [employer]: Breezy White MD Monocytes (Bld) [#/Vol] 0.35 10*3/uL Normal 0.10-1.20 [facility] Comment on above: Performed By: #### P TT, HEPXA, CDP, BMPX, PT #### [address] [address] [employer]: Breezy White MD Monocytes/100 WBC (Bld) 8 % Normal 3-12 [facility] Comment on above: Performed By: #### P TT, HEPXA, CDP, BMPX, PT #### [address] [address] [employer]: Breezy White MD Neutrophil (Seg) 63 % Normal 36-65 [facility] Comment on above: Performed By: #### P TT, HEPXA, CDP, BMPX, PT #### [address] [address] [employer]: Breezy White MD NRBC Automated 0.0 per 100 WBC Normal 0.0 [facility] Comment on above: Performed By: #### P TT, HEPXA, CDP, BMPX, PT #### [address] [address] [employer]: Breezy White MD Platelet mean volume (Bld) [Entitic vol] 10.2 fL Normal 8.1-13.5 [facility] Comment on above: Performed By: #### P TT, HEPXA, CDP, BMPX, PT #### [address] [address] [employer]: Breezy White MD Platelets (Bld) [#/Vol] 152 10*3/uL Normal 138-453 [facility] Comment on above: Performed By: #### P TT, HEPXA, CDP, BMPX, PT #### [address] [address] [employer]: Breezy White MD RBC (Bld) [#/Vol] 3.92 10*6/uL Low 3.95-5.11 [facility] Comment on above: Performed By: #### P TT, HEPXA, CDP, BMPX, PT #### [employer] [address] [place] [phone] [employer]: Breezy White MD WBC (Bld) [#/Vol] 4.6 10*3/uL Normal 3.5-11.3 [facility] Comment on above: Performed By: #### P TT, HEPXA, CDP, BMPX, PT #### [facility] [employer] [address] [place] [address] [phone] [employer]: Breezy White MD Heparin Anti-Xaon 10-29-2023 Heparin Anti-Xa 1.59 IU/L Normal [facility] Comment on above: Performed By: #### P TT, HEPXA, CDP, BMPX, PT #### [facility] [employer] [address] [place] [address] [phone] [employer]: Breezy White MD Laboratory - Coagulationon 0 10-29-2023 aPTT Coag (Bld) [Time] 102.5 s 48.2-68.6 [facility] Comment on above: RESULTS CALLED TO YAMILE WAGNER RN @BY Tanja Jj at 0615 PTon 10-29-2023 INR Coag (PPP) [Relative time] 1.1 {INR} Normal [facility] Comment on above: Result Comment: Therapeutic Range: Moderate Anticoagulant Intensity: INR = 2.0-3.0 High Anticoagulant Intensity: INR = 2.5-3.5 Performed By: #### P TT, HEPXA, CDP, BMPX, PT #### [address] [phone] [employer]: Breezy White MD PT Coag (PPP) [Time] 13.8 s Normal 11.7-14.9 [facility] Comment on above: Performed By: #### P TT, HEPXA, CDP, BMPX, PT #### [facility] [place] [phone] [employer]: Breezy White MD Activated partial thrombopla stin time (aPTT) in platelet poor plasma by coagulation aon 10-28-2023 aPTT Coag (PPP) [Time] 26.7 s 22.3-36.2 [facility] Basophils Auto (Bld) [#/Vol] on 10-28-2023 Basophils (Bld) [#/Vol] 0.0 10 3/uL 0.0-0.1 [facility] Basophils/100 WBC Auto (Bld) on 10-28-2023 Basophils/100 WBC (Bld) 0.4 % 0.2-2.0 [facility] Eosinophils/100 WBC Auto (Bl d)on 10-28-2023 Eosinophils/100 WBC (Bld) 1.1 % 0.9-7.0 [facility] Erythrocyte distribution wid th Auto (RBC) [Ratio]on 10-28-2023 Erythrocyte distribution width (RBC) [Ratio] 12.8 % 11.0-15.0 [facility] Estimated glomerular filtrat ion rate (GFR) non- Americanon 10-28-2023 GFR/1.73 sq M.predicted among non-blacks MDRD (S/P/Bld) [Vol rate/Area] mL/min/{1.73_m2} >=60 [facility] Globulin Calc (S) [Mass/Vol] on 10-28-2023 Globulin (S) [Mass/Vol] 3.6 g/dL [facility] Hematocrit Auto (Bld) [Volum e fraction]on 10-28-2023 Hematocrit (Bld) [Volume fraction] 35.3 % 36.0-48.0 [facility] Hemoglobin [Mass/volume] in Bloodon 10-28-2023 Hemoglobin (Bld) [Mass/Vol] 11.6 g/dL 12.0-16.0 [facility] INR in Platelet poor plasma by Coagulation assayon 10-28-2023 INR Coag (PPP) [Relative time] 0.98 {INR} [facility] Comment on above: DESIRED INR:2.0-3.0 CONDITIONS NOT LISTED BELOW2.5-3.5 FOR PROSTHETIC HEART VALVE REPLACEMENT2.5-3.5 RECURRENT THROMBOSIS Laboratory - Chemistry and C hemistry - challengeon 10-28-2023 Albumin [Mass/Vol] 3.2 g/dL 3.4-5.0 [facility] ALP [Catalytic activity/Vol] 82 U/L 46-116 [facility] ALT [Catalytic activity/Vol] 12 U/L 14-59 [facility] AST [Catalytic activity/Vol] 15 U/L 15-37 [facility] Bilirubin [Mass/Vol] 0.4 mg/dL 0.2-1.0 [facility] Calcium [Mass/Vol] 9.1 mg/dL 8.5-10.1 [facility] Chloride [Moles/Vol] 107 mmol/L 98-107 [facility] CO2 [Moles/Vol] 27.8 mmol/L 21.0-32.0 [facility] Creatinine [Mass/Vol] 0.92 mg/dL 0.55-1.02 [facility] GFR/1.73 sq M.predicted MDRD (S/P/Bld) [Vol rate/Area] mL/min/{1.73_m2} >=60 [facility] Glucose [Mass/Vol] 90 mg/dL 74-106 [facility] Natriuretic peptide B (Bld) [Mass/Vol] 152.0 pg/mL <=450.0 [facility] Potassium [Moles/Vol] 4.0 mmol/L 3.5-5.1 [facility] Protein [Mass/Vol] 6.8 g/dL 6.4-8.2 [facility] Sodium [Moles/Vol] 141 mmol/L 136-145 [facility] Urea nitrogen [Mass/Vol] 14.0 mg/dL 7.0-18.0 [facility] Urea nitrogen/Creatinine [Mass ratio] 15.2 mg/mg [facility] Laboratory - Hematology and Cell countson 10-28-2023 Immature granulocytes/100 WBC (Bld) 0.2 % 0.0-0.5 [facility] Leukocytes [#/volume] correc nneka for nucleated erythrocytes in Blood by Automated counon 10-28-2023 WBC corrected for nucl RBC Auto (Bld) [#/Vol] 5.5 10 3/uL 4.0-11.0 [facility] Lymphocytes Auto (Bld) [#/Vo l]on 10-28-2023 Lymphocytes (Bld) [#/Vol] 1.4 10 3/uL 1.2-3.8 [facility] Lymphocytes/100 WBC Auto (Bl d)on 10-28-2023 Lymphocytes/100 WBC (Bld) 25.2 % 20.5-60.0 [facility] MCH Auto (RBC) [Entitic mass ]on 10-28-2023 MCH (RBC) [Entitic mass] 31.8 pg 26.7-34.0 [facility] MCHC Auto (RBC) [Mass/Vol]on 10-28-2023 MCHC (RBC) [Mass/Vol] 32.9 g/dL 29.9-35.2 [facility] MCV Auto (RBC) [Entitic vol] on 10-28-2023 MCV (RBC) [Entitic vol] 96.7 fL 81.0-99.0 [facility] Monocytes Auto (Bld) [#/Vol] on 10-28-2023 Monocytes (Bld) [#/Vol] 0.4 10 3/uL 0.3-0.8 [facility] Monocytes/100 WBC Auto (Bld) on 10-28-2023 Monocytes/100 WBC (Bld) 7.3 % 1.7-12.0 [facility] Neutrophils Auto (Bld) [#/Vo l]on 10-28-2023 Neutrophils (Bld) [#/Vol] 3.6 10 3/uL 1.4-6.5 [facility] Neutrophils/100 WBC Auto (Bl d)on 10-28-2023 Neutrophils/100 WBC (Bld) 65.8 % 43.0-75.0 [facility] No Panel Informationon 10-27 Eosinophils # (Auto) 0.1 10 3/uL 0.0-0.7 [facility] Immature Granulocyte # (Auto) 0.01 10 3/uL 0.00-0.03 [facility] Troponin I High Sensitivity 4.1 pg/mL 4.0-51.3 [facility] Comment on above: CUT-OFF POINTS HAVE [...] [Entitic vol] 9.4 fL 9.5-13.5 [facility] Platelets Auto (Bld) [#/Vol] on 10-28-2023 Platelets (Bld) [#/Vol] 154 10 3/uL 150-450 [facility] Prothrombin time (PT)on PT Coag (PPP) [Time] 10.4 s 9.0-11.6 [facility] RBC Auto (Bld) [#/Vol]on RBC (Bld) [#/Vol] 3.65 10 6/uL 4.20-5.40 [facility] Serum or plasma albumin/glob ulin mass ratioon 10-28-2023 Albumin/Globulin [Mass ratio] 0.9 {ratio} [facility] Serum or plasma anion gap de terminationon 10-28-2023 Anion gap [Moles/Vol] 10.2 mmol/L [facility] Basophils Auto (Bld) [#/Vol] on 10-27-2023 Basophils (Bld) [#/Vol] 0.0 10 3/uL 0.0-0.1 [facility] Basophils/100 WBC Auto (Bld) on 10-27-2023 Basophils/100 WBC (Bld) 0.6 % 0.2-2.0 [facility] Eosinophils/100 WBC Auto (Bl d)on 10-27-2023 Eosinophils/100 WBC (Bld) 1.9 % 0.9-7.0 [facility] Erythrocyte distribution wid th Auto (RBC) [Ratio]on 10-27-2023 Erythrocyte distribution width (RBC) [Ratio] 13.0 % 11.0-15.0 [facility] Estimated glomerular filtrat ion rate (GFR) non- Americanon 10-27-2023 GFR/1.73 sq M.predicted among non-blacks MDRD (S/P/Bld) [Vol rate/Area] mL/min/{1.73_m2} >=60 [facility] Globulin Calc (S) [Mass/Vol] on 10-27-2023 Globulin (S) [Mass/Vol] 3.3 g/dL [facility] Hematocrit Auto (Bld) [Volum e fraction]on 10-27-2023 Hematocrit (Bld) [Volume fraction] 34.1 % 36.0-48.0 [facility] Hemoglobin [Mass/volume] in Bloodon 10-27-2023 Hemoglobin (Bld) [Mass/Vol] 11.0 g/dL 12.0-16.0 [facility] INR in Platelet poor plasma by Coagulation assayon 10-27-2023 INR Coag (PPP) [Relative time] 1.02 {INR} [facility] Comment on above: DESIRED INR:2.0-3.0 CONDITIONS NOT LISTED BELOW2.5-3.5 FOR PROSTHETIC HEART VALVE REPLACEMENT2.5-3.5 RECURRENT THROMBOSIS Laboratory - Chemistry and C hemistry - challengeon 10-27-2023 Albumin [Mass/Vol] 2.8 g/dL 3.4-5.0 [facility] ALP [Catalytic activity/Vol] 74 U/L 46-116 [facility] ALT [Catalytic activity/Vol] 12 U/L 14-59 [facility] AST [Catalytic activity/Vol] 11 U/L 15-37 [facility] Bilirubin [Mass/Vol] 0.5 mg/dL 0.2-1.0 [facility] Calcium [Mass/Vol] 9.0 mg/dL 8.5-10.1 [facility] Chloride [Moles/Vol] 106 mmol/L 98-107 [facility] CO2 [Moles/Vol] 25.5 mmol/L 21.0-32.0 [facility] Creatinine [Mass/Vol] 0.76 mg/dL 0.55-1.02 [facility] GFR/1.73 sq M.predicted MDRD (S/P/Bld) [Vol rate/Area] mL/min/{1.73_m2} >=60 [facility] Glucose [Mass/Vol] 87 mg/dL 74-106 [facility] Lactate [Moles/Vol] 1.1 mmol/L 0.4-2.0 [facility] Potassium [Moles/Vol] 4.2 mmol/L 3.5-5.1 [facility] Protein [Mass/Vol] 6.1 g/dL 6.4-8.2 [facility] Sodium [Moles/Vol] 140 mmol/L 136-145 [facility] Urea nitrogen [Mass/Vol] 8.0 mg/dL 7.0-18.0 [facility] Urea nitrogen/Creatinine [Mass ratio] 10.5 mg/mg [facility] Laboratory - Coagulationon 0 10-27-2023 aPTT Coag (Bld) [Time] 81.9 s 48.2-68.6 [facility] Comment on above: RESULTS CALLED TO Lin COFFEY)@BY Estela Montanez MLT at 0504 Laboratory - Hematology and Cell countson 10-27-2023 Immature granulocytes/100 WBC (Bld) 0.2 % 0.0-0.5 [facility] Leukocytes [#/volume] correc nneka for nucleated erythrocytes in Blood by Automated counon 10-27-2023 WBC corrected for nucl RBC Auto (Bld) [#/Vol] 4.7 10 3/uL 4.0-11.0 [facility] Lymphocytes Auto (Bld) [#/Vo l]on 10-27-2023 Lymphocytes (Bld) [#/Vol] 1.8 10 3/uL 1.2-3.8 [facility] Lymphocytes/100 WBC Auto (Bl d)on 10-27-2023 Lymphocytes/100 WBC (Bld) 37.7 % 20.5-60.0 [facility] MCH Auto (RBC) [Entitic mass ]on 10-27-2023 MCH (RBC) [Entitic mass] 31.4 pg 26.7-34.0 [facility] MCHC Auto (RBC) [Mass/Vol]on 10-27-2023 MCHC (RBC) [Mass/Vol] 32.3 g/dL 29.9-35.2 [facility] MCV Auto (RBC) [Entitic vol] on 10-27-2023 MCV (RBC) [Entitic vol] 97.4 fL 81.0-99.0 [facility] Monocytes Auto (Bld) [#/Vol] on 10-27-2023 Monocytes (Bld) [#/Vol] 0.3 10 3/uL 0.3-0.8 [facility] Monocytes/100 WBC Auto (Bld) on 10-27-2023 Monocytes/100 WBC (Bld) 7.2 % 1.7-12.0 [facility] Neutrophils Auto (Bld) [#/Vo l]on 10-27-2023 Neutrophils (Bld) [#/Vol] 2.5 10 3/uL 1.4-6.5 [facility] Neutrophils/100 WBC Auto (Bl d)on 10-27-2023 Neutrophils/100 WBC (Bld) 52.4 % 43.0-75.0 [facility] No Panel Informationon 10-26 Eosinophils # (Auto) 0.1 10 3/uL 0.0-0.7 [facility] Immature Granulocyte # (Auto) 0.01 10 3/uL 0.00-0.03 [facility] Platelet mean volume Auto (B ld) [Entitic vol]on 10-27-2023 Platelet mean volume (Bld) [Entitic vol] 9.9 fL 9.5-13.5 [facility] Platelets Auto (Bld) [#/Vol] on 10-27-2023 Platelets (Bld) [#/Vol] 122 10 3/uL 150-450 [facility] Prothrombin time (PT)on PT Coag (PPP) [Time] 10.8 s 9.0-11.6 [facility] RBC Auto (Bld) [#/Vol]on RBC (Bld) [#/Vol] 3.50 10 6/uL 4.20-5.40 [facility] Serum or plasma albumin/glob ulin mass ratioon 10-27-2023 Albumin/Globulin [Mass ratio] 0.8 {ratio} [facility] Serum or plasma anion gap de terminationon 10-27-2023 Anion gap [Moles/Vol] 12.7 mmol/L Fi relaCounts include 234 beds at the [facility] Amorphous urine sedimenton 0 10-26-2023 Amorphous sediment LM Ql (Urine sed) FEW [facility] Automated epithelial cells c ount in urine sediment (number/area)on 10-26-2023 Epithelial cells Auto (Urine sed) [#/Area] MANY #/LPF NONE/RARE [facility] Bacteria [Presence] in Urine by Automatedon 10-26-2023 Bacteria Auto Ql (U) NONE SEEN #/HPF NONE SEEN [facility] Basophils Auto (Bld) [#/Vol] on 10-26-2023 Basophils (Bld) [#/Vol] 0.0 10 3/uL 0.0-0.1 [facility] Basophils/100 WBC Auto (Bld) on 10-26-2023 Basophils/100 WBC (Bld) 0.5 % 0.2-2.0 [facility] Bilirubin Auto test strip (U ) [Mass/Vol]on 10-26-2023 Bilirubin (U) [Mass/Vol] Negative NEGATIVE [facility] Casts typing in urine sedime nt by light microscopyon 10-26-2023 Casts LM Nom (Urine sed) NONE SEEN #/LPF NONE SEEN [facility] Eosinophils/100 WBC Auto (Bl d)on 10-26-2023 Eosinophils/100 WBC (Bld) 1.4 % 0.9-7.0 [facility] Erythrocyte distribution wid th Auto (RBC) [Ratio]on 10-26-2023 Erythrocyte distribution width (RBC) [Ratio] 12.7 % 11.0-15.0 [facility] Estimated glomerular filtrat ion rate (GFR) non- Americanon 10-26-2023 GFR/1.73 sq M.predicted among non-blacks MDRD (S/P/Bld) [Vol rate/Area] mL/min/{1.73_m2} >=60 [facility] Globulin Calc (S) [Mass/Vol] on 10-26-2023 Globulin (S) [Mass/Vol] 4.2 g/dL [facility] HCG ( test) IA.rapi d Ql (U)on 10-26-2023 HCG ( test) Ql (U) Negative NEGATIVE [facility] Hematocrit Auto (Bld) [Volum e fraction]on 10-26-2023 Hematocrit (Bld) [Volume fraction] 38.5 % 36.0-48.0 [facility] Hemoglobin [Mass/volume] in Bloodon 10-26-2023 Hemoglobin (Bld) [Mass/Vol] 12.7 g/dL 12.0-16.0 [facility] INR in Platelet poor plasma by Coagulation assayon 10-26-2023 INR Coag (PPP) [Relative time] 0.96 {INR} [facility] Comment on above: DESIRED INR:2.0-3.0 CONDITIONS NOT LISTED BELOW2.5-3.5 FOR PROSTHETIC HEART VALVE REPLACEMENT2.5-3.5 RECURRENT THROMBOSIS Laboratory - Chemistry and C hemistry - challengeon 10-26-2023 Glucose (U) [Mass/Vol] Negative NEGATIVE relaCounts include 234 beds at the [facility] Ketones Ql (U) Negative NEGATIVE [facility] pH (U) 6.0 [pH] 5.0-9.0 [facility] Specific gravity (U) [Rel density] >=1.030 1.005-1.025 [facility] Urobilinogen Qn (U) 1.0 {José'U}/dL 0.2-1.0 [facility] Albumin [Mass/Vol] 3.4 g/dL 3.4-5.0 [facility] ALP [Catalytic activity/Vol] 98 U/L 46-116 [facility] ALT [Catalytic activity/Vol] 11 U/L 14-59 [facility] AST [Catalytic activity/Vol] 9 U/L 15-37 [facility] Bilirubin [Mass/Vol] 0.5 mg/dL 0.2-1.0 [facility] Calcium [Mass/Vol] 9.5 mg/dL 8.5-10.1 [facility] Chloride [Moles/Vol] 104 mmol/L 98-107 [facility] CO2 [Moles/Vol] 25.6 mmol/L 21.0-32.0 [facility] Creatinine [Mass/Vol] 0.94 mg/dL 0.55-1.02 [facility] GFR/1.73 sq M.predicted MDRD (S/P/Bld) [Vol rate/Area] mL/min/{1.73_m2} >=60 [facility] Glucose [Mass/Vol] 96 mg/dL 74-106 [facility] Lactate [Moles/Vol] 2.3 mmol/L 0.4-2.0 [facility] Comment on above: RESULTS CALLED TO Vj COFFEY)@BY Estela Montanez MLT at 2012 Natriuretic peptide B (Bld) [Mass/Vol] 55.0 pg/mL <=450.0 [facility] Potassium [Moles/Vol] 3.2 mmol/L 3.5-5.1 [facility] Protein [Mass/Vol] 7.6 g/dL 6.4-8.2 [facility] Sodium [Moles/Vol] 140 mmol/L 136-145 [facility] TSH Qn 3.806 m[IU]/L 0.358-3.740 [facility] Urea nitrogen [Mass/Vol] 10.0 mg/dL 7.0-18.0 [facility] Urea nitrogen/Creatinine [Mass ratio] 10.6 mg/mg [facility] Laboratory - Hematology and Cell countson 10-26-2023 Immature granulocytes/100 WBC (Bld) 0.3 % 0.0-0.5 [facility] Laboratory - Specimen inform ationon 10-26-2023 Appearance (U) CLEAR CLEAR [facility] Color (U) LT. YELLOW YELLOW [facility] Laboratory - Urinalysison Leukocyte esterase Test strip Ql (U) SMALL NEGATIVE [facility] Nitrite Ql (U) Negative NEGATIVE [facility] Protein Ql (U) Negative NEG/TRACE [facility] Leukocytes [#/area] in Urine sediment by Automated counton 10-26-2023 WBC Auto (Urine sed) [#/Area] NONE SEEN #/HPF 0-2 [facility] Leukocytes [#/area] in Urine sediment by Microscopy high power fieldon 10-26-2023 WBC LM.HPF (Urine sed) [#/Area] 5-10 #/HPF NONE SEEN [facility] Leukocytes [#/volume] correc nneka for nucleated erythrocytes in Blood by Automated counon 10-26-2023 WBC corrected for nucl RBC Auto (Bld) [#/Vol] 6.3 10 3/uL 4.0-11.0 [facility] Lymphocytes Auto (Bld) [#/Vo l]on 10-26-2023 Lymphocytes (Bld) [#/Vol] 1.4 10 3/uL 1.2-3.8 [facility] Lymphocytes/100 WBC Auto (Bl d)on 10-26-2023 Lymphocytes/100 WBC (Bld) 21.8 % 20.5-60.0 [facility] MCH Auto (RBC) [Entitic mass ]on 10-26-2023 MCH (RBC) [Entitic mass] 31.8 pg 26.7-34.0 [facility] MCHC Auto (RBC) [Mass/Vol]on 10-26-2023 MCHC (RBC) [Mass/Vol] 33.0 g/dL 29.9-35.2 [facility] MCV Auto (RBC) [Entitic vol] on 10-26-2023 MCV (RBC) [Entitic vol] 96.5 fL 81.0-99.0 [facility] Monocytes Auto (Bld) [#/Vol] on 10-26-2023 Monocytes (Bld) [#/Vol] 0.5 10 3/uL 0.3-0.8 [facility] Monocytes/100 WBC Auto (Bld) on 10-26-2023 Monocytes/100 WBC (Bld) 7.2 % 1.7-12.0 [facility] Mucus LM Ql (Urine sed)on Mucus Ql (Urine sed) SMALL NONE SEEN [facility] Neutrophils Auto (Bld) [#/Vo l]on 10-26-2023 Neutrophils (Bld) [#/Vol] 4.3 10 3/uL 1.4-6.5 [facility] Neutrophils/100 WBC Auto (Bl d)on 10-26-2023 Neutrophils/100 WBC (Bld) 68.8 % 43.0-75.0 [facility] No Panel Informationon 10-25 Urine Culture Reflexed YES [facility] Urine Microscopic Review YES [facility] Eosinophils # (Auto) 0.1 10 3/uL 0.0-0.7 [facility] Immature Granulocyte # (Auto) 0.02 10 3/uL 0.00-0.03 [facility] Troponin I High Sensitivity <4.0 pg/mL 4.0-51.3 [facility] Comment on above: CUT-OFF POINTS HAVE [...] [Entitic vol] 9.8 fL 9.5-13.5 [facility] Platelets Auto (Bld) [#/Vol] on 10-26-2023 Platelets (Bld) [#/Vol] 138 10 3/uL 150-450 [facility] Prothrombin time (PT)on PT Coag (PPP) [Time] 10.2 s 9.0-11.6 [facility] RBC Auto (Bld) [#/Vol]on RBC (Bld) [#/Vol] 3.99 10 6/uL 4.20-5.40 [facility] Serum or plasma albumin/glob ulin mass ratioon 10-26-2023 Albumin/Globulin [Mass ratio] 0.8 {ratio} [facility] Serum or plasma anion gap de terminationon 10-26-2023 Anion gap [Moles/Vol] 13.6 mmol/L [facility] Urine hemoglobin detection b y automated test stripon 10-26-2023 Hemoglobin Auto test strip Ql (U) Negative NEGATIVE [facility] Urine sediment crystal ident ification by light microscopyon 10-26-2023 Crystals LM Nom (Urine sed) None Seen #/HPF None Seen [facility] Cardiac Device Check - Remot michael 04-24-2023 Radiology Study observation (narrative) [facility] Work Phone: Cardiac Device Check - Remot eOrdered By: Rita Olivia on 04-24-2023 [facility] Work Phone: Office Visit (Cardiology)on 01-20-2023 [...] Lead; Status:Active - Perform Order,Retrospective Authorization; Requested for:[id number]; Cardiac pacemaker, Sinus bradycardia, Sinus node dysfunction, Sinus tachycardia Interr. Device Eval - Sngl/Dual/Multiple Pacemaker; Status:Hold For - Scheduling,Retrospective Authorization; Requested for:[id number]; Class 2 obesity with body mass index [...] arrhythmias iss (more content not included)... Normal [facility] Tobacco Screening.on 023 Adult depression screening assessment No [facility] Work Phone: Fall risk assessment a) No falls within the last year [facility] [address] DO Work Phone: [phone] Tobacco use status CP b) No [facility] [address] DO Work Phone: Alanine aminotransferase [En zymatic activity/volume] in Serum or PlasmaOrdered By: Ke Cage on 12-11-2022 ALT [Catalytic activity/Vol] 13 U/L 7- [facility] Albumin [Mass/volume] in Ser um or Plasma by Bromocresol green (BCG) dye binding methoOrdered By: Ke Cage on 12-11-2022 Albumin BCG dye [Mass/Vol] 4.8 g/dL 3.5-5.7 [facility] Alkaline phosphatase [Enzyma tic activity/volume] in Serum or PlasmaOrdered By: Ke Cage on 12-11-2022 ALP [Catalytic activity/Vol] 83 U/L 34-104 [facility] Amphetamine Screen Ql (U)Ord ered By: Ke Cage on 12-11-2022 Amphetamines Ql (U) Negative Negative [facility] Aspartate aminotransferase [ Enzymatic activity/volume] in Serum or PlasmaOrdered By: Ke Cage on 12-11-2022 AST [Catalytic activity/Vol] 20 U/L 13-39 [facility] Automated erythrocytes count in urine sediment (number/area)Ordered By: Ke Cage on 12-11-2022 RBC Auto (Urine sed) [#/Area] 0-1 [HPF] 0-4 [facility] Automated leukocytes count i n urine sediment (number/area)Ordered By: Ke Cage on 12-11-2022 WBC Auto (Urine sed) [#/Area] 5-9 [HPF] 0-4 [facility] Barbiturates [Presence] in U rine by Screen methodOrdered By: Ke Cage on 12-11-2022 Barbiturates Screen Ql (U) Negative Negative [facility] Basophils Auto (Bld) [#/Vol] Ordered By: Ke Cage on 12-11-2022 Basophils (Bld) [#/Vol] 0.0 10*3/uL 0.0-0.2 [facility] Basophils/100 WBC Auto (Bld) Ordered By: Ke Cage on 12-11-2022 Basophils/100 WBC (Bld) 0.7 % . [facility] Benzodiazepines Screen Ql (U )Ordered By: Ke Cage on 12-11-2022 Benzodiazepines Ql (U) Negative Negative [facility] Benzoylecgonine [Presence] i n Urine by Screen methodOrdered By: Ke Cage on 12-11-2022 Benzoylecgonine Screen Ql (U) Negative Negative [facility] Bilirubin Auto test strip Ql (U)Ordered By: Ke Cage on 12-11-2022 Bilirubin Ql (U) Negative Negative [facility] Bilirubin.total [Mass/volume ] in Serum or PlasmaOrdered By: Ke Cage on 12-11-2022 Bilirubin [Mass/Vol] 0.6 mg/dL 0.3-1.0 [facility] Calcium [Mass/volume] in Ser um or PlasmaOrdered By: Ke Cage on 12-11-2022 Calcium [Mass/Vol] 9.9 mg/dL 8.6-10.3 [facility] Cannabinoids [Presence] in U rine by Screen methodOrdered By: Ke Cage on 12-11-2022 Cannabinoids Screen Ql (U) Negative Negative [facility] Comment on above: These are unconfirme [...] on 12-11-2022 Chloride [Moles/Vol] 107 mmol/L 98-107 [facility] Cholesterol [Mass/volume] in Serum or PlasmaOrdered By: Eduardo Swain on 12-11-2022 Cholesterol [Mass/Vol] 229 mg/dL 140-200 [facility] Comment on above: Chol less than 200 m g/dl low riskChol 201-239 mg/dl borderline riskChol 240 mg/dl and greater high risk Cholesterol in LDL Calc [Mas s/Vol]Ordered By: Eduardo Swain on 12-11-2022 Cholesterol in LDL [Mass/Vol] 129 mg/dL 0-100 [facility] Comment on above: LDL ATP III CLASSIFI CATIONLDL less than 100 mg/dL OptimalLDL 100-129 mg/dL Near or above optimalLDL 130-159 mg/dL Borderline highLDL 160-189 mg/dL HighLDL greater than 189 mg/dL Very high Cholesterol in VLDL Calc [Ma ss/Vol]Ordered By: Eduardo Swain on 12-11-2022 Cholesterol in VLDL [Mass/Vol] 13 mg/dL [facility] Creatinine [Mass/volume] in Serum or PlasmaOrdered By: Ke Cage on 12-11-2022 Creatinine [Mass/Vol] 0.78 mg/dL 0.60-1.20 [facility] Eosinophils Auto (Bld) [#/Vo l]Ordered By: Ke Cage on 12-11-2022 Eosinophils (Bld) [#/Vol] 0.1 10*3/uL 0.0-0.45 [facility] Eosinophils/100 WBC Auto (Bl d)Ordered By: Ke Cage on 12-11-2022 Eosinophils/100 WBC (Bld) 2.2 % . [facility] Erythrocyte distribution wid th Auto (RBC) [Ratio]Ordered By: Ke Cage on 12-11-2022 Erythrocyte distribution width (RBC) [Ratio] 12.9 % 11.9-15.3 [facility] Ethanol [Mass/volume] in Ser um or PlasmaOrdered By: Ke Cage on 12-11-2022 Ethanol [Mass/Vol] mg/dL [facility] Ethanol [Mass/Vol] TNP [facility] Comment on above: Test not performed Globulin Calc (S) [Mass/Vol] Ordered By: Ke Cage on 12-11-2022 Globulin (S) [Mass/Vol] 2.7 g/dL [facility] Glucose [Mass/volume] in Ser um or PlasmaOrdered By: Ke Cage on 12-11-2022 Glucose [Mass/Vol] 87 mg/dL 70-100 [facility] Comment on above: ADA recommended refe rence rangeRandom Glucose Reference Range is dependent on time and content of last meal. Glucose of more than 200 mg/dL in a nonstressed, ambulatory subject supports the diagnosis of Diabetes Mellitus. HCG ( test) IA.rapi d Ql (U)Ordered By: Ke Cage on 12-11-2022 HCG ( test) Ql (U) Negative [facility] Hematocrit Auto (Bld) [Volum e fraction]Ordered By: Ke Cage on 12-11-2022 Hematocrit (Bld) [Volume fraction] 41.8 % 34.0-46.4 [facility] Hemoglobin [Mass/volume] in BloodOrdered By: Ke Cage on 12-11-2022 Hemoglobin (Bld) [Mass/Vol] 14.2 g/dL 11.8-15.4 [facility] Ketones Auto test strip (U) [Mass/Vol]Ordered By: Ke Cage on 12-11-2022 Ketones (U) [Mass/Vol] Negative Negative [facility] Laboratory - UrinalysisOrder ed By: Ke Cage on 12-11-2022 Hyaline casts LM Ql (Urine sed) 0-8 [LPF] 0-8 [facility] Leukocytes [#/volume] correc nneka for nucleated erythrocytes in Blood by Automated counOrdered By: Ke Cage on 12-11-2022 WBC corrected for nucl RBC Auto (Bld) [#/Vol] 5.8 10*3/uL 3.8-11.6 [facility] Lymphocytes Auto (Bld) [#/Vo l]Ordered By: Ke Cage on 12-11-2022 Lymphocytes (Bld) [#/Vol] 1.7 10*3/uL 1.00-4.8 [facility] Lymphocytes/100 WBC Auto (Bl d)Ordered By: Ke Cage on 12-11-2022 Lymphocytes/100 WBC (Bld) 28.6 % . [facility] MCH Auto (RBC) [Entitic mass ]Ordered By: Ke Cage on 12-11-2022 MCH (RBC) [Entitic mass] 32.4 pg 24.7-34.3 [facility] MCHC Auto (RBC) [Mass/Vol]Or dered By: Ke Cage on 12-11-2022 MCHC (RBC) [Mass/Vol] 33.9 g/dL 32.0-35.0 [facility] MCV Auto (RBC) [Entitic vol] Ordered By: Ke Cage on 12-11-2022 MCV (RBC) [Entitic vol] 95.4 fL 80-100 [facility] Monocyte distribution width [Entitic volume] in Blood by AutomatedOrdered By: Ke Cage on 12-11-2022 Monocyte distribution width Auto (Bld) [Entitic vol] 17.61 % 0.00-20.00 [facility] Monocytes Auto (Bld) [#/Vol] Ordered By: Ke Cage on 12-11-2022 Monocytes (Bld) [#/Vol] 0.5 10*3/uL 0.0-0.8 [facility] Monocytes/100 WBC Auto (Bld) Ordered By: Ke Cage on 12-11-2022 Monocytes/100 WBC (Bld) 8.1 % . [facility] Neutrophils Auto (Bld) [#/Vo l]Ordered By: Ke Cage on 12-11-2022 Neutrophils (Bld) [#/Vol] 3.5 10*3/uL 1.8-7.7 [facility] Neutrophils/100 WBC Auto (Bl d)Ordered By: Ke Cage on 12-11-2022 Neutrophils/100 WBC (Bld) 60.4 % . [facility] No Panel InformationOrdered By: Ke Cage on 12-11-2022 Estimated GFR (CKD-EPI) > 60.0 mL/Min [facility] Creatinine Clearance (Chem 119.76 [facility] Nucleated erythrocytes [Pres ence] in Blood by Automated countOrdered By: Ke Cage on 12-11-2022 Nucleated RBC Auto Ql (Bld) 0.1 /100{WBC} 0-0.5 [facility] Opiates [Presence] in Urine by Screen methodOrdered By: Ke Cage on 12-11-2022 Opiates Screen Ql (U) Negative Negative [facility] Phencyclidine Screen Ql (U)O rdered By: Ke Cage on 12-11-2022 Phencyclidine Ql (U) Negative Negative [facility] Platelet mean volume Auto (B ld) [Entitic vol]Ordered By: Ke Cage on 12-11-2022 Platelet mean volume (Bld) [Entitic vol] 7.9 fL 6.3-10.7 [facility] Platelets Auto (Bld) [#/Vol] Ordered By: Ke Cage on 12-11-2022 Platelets (Bld) [#/Vol] 185 10*3/uL 150-450 [facility] Potassium [Moles/volume] in Serum or PlasmaOrdered By: Ke Cage on 12-11-2022 Potassium [Moles/Vol] 3.8 mmol/L 3.5-5.1 [facility] Protein Auto test strip (U) [Mass/Vol]Ordered By: Ke Cage on 12-11-2022 Protein (U) [Mass/Vol] Negative Negative Fi [facility] Protein [Mass/volume] in Ser um or PlasmaOrdered By: Ke Cage on 12-11-2022 Protein [Mass/Vol] 7.5 g/dL 6.4-8.9 [facility] RBC Auto (Bld) [#/Vol]Ordere d By: Ke Cage on 12-11-2022 RBC (Bld) [#/Vol] 4.38 10*6/uL 3.60-5.00 [facility] Serum or plasma albumin/glob ulin mass ratioOrdered By: Ke Cage on 12-11-2022 Albumin/Globulin [Mass ratio] 1.8 {ratio} [facility] Serum or plasma anion gap de terminationOrdered By: Ke Cage on 12-11-2022 Anion gap [Moles/Vol] 12.6 mmol/L 6.0-15.0 [facility] Serum or plasma high density lipoprotein (HDL) cholesterol measurementOrdered By: Eduardo Swain on 12-11-2022 Cholesterol in HDL [Mass/Vol] 87 mg/dL 23-92 [facility] Comment on above: HDL CHOL ATP-III CLA SSIFICATION Cardiovascular RiskHDL > or equal to 60 mg/dL LOWHDL < 40 mg/dL HIGH Serum or plasma total choles terol/high density lipoprotein (HDL) cholesterol mass ratOrdered By: Eduardo Swain on 12-11-2022 Cholesterol.total/Chol esterol in HDL [Mass ratio] 2.6 {ratio} <5.0 [facility] Sodium [Moles/volume] in Ser um or PlasmaOrdered By: Ke Cage on 12-11-2022 Sodium [Moles/Vol] 140 mmol/L 136-145 [facility] Squamous epithelial cells de tection in urine sediment by light microscopyOrdered By: Ke Cage on 12-11-2022 Epithelial cells.squamous LM Ql (Urine sed) 3-4 [HPF] 0-2 [facility] Thyrotropin [Units/volume] i n Serum or PlasmaOrdered By: Eduardo Swain on 12-11-2022 TSH Qn 1.24 m[IU]/L 0.45-5.33 [facility] Triglyceride [Mass/volume] i n Serum or PlasmaOrdered By: Eduardo Swain on 12-11-2022 Triglyceride [Mass/Vol] 66 mg/dL 0-149 [facility] Comment on above: TRIG ATP III CLASSIF ICATIONTRIG less than 150 mg/dL NormalTRIG 150-199 mg/dL Borderline highTRIG 200-500 mg/dL High TRIG greater than 500 mg/dL Very highStandard traceable to the Center for Disease Conrtrol and Prevention (CDC) test method. Urea nitrogen [Mass/volume] in Serum or PlasmaOrdered By: Ke Cage on 12-11-2022 Urea nitrogen [Mass/Vol] 7 mg/dL 7-25 [facility] Urine appearanceOrdered By: Ke Cage on 12-11-2022 Appearance (U) Slightly cloudy Clear [facility] Urine bacteria detection by automated methodOrdered By: Ke Cage on 12-11-2022 Bacteria Auto Ql (U) None seen None Seen [facility] Urine colorOrdered By: Ke Cage on 12-11-2022 Color (U) Yellow Yellow [facility] Urine culture routineOrdered By: Ke Cage on 12-11-2022 Bacteria identified Cx Nom (U) 2 Days [facility] Urine glucose measurement by automated test strip (mass/volume)Ordered By: Ke Cage on 12-11-2022 Glucose Auto test strip (U) [Mass/Vol] Normal mg/dL Normal [facility] Urine hemoglobin detection b y automated test stripOrdered By: Ke Cage on 12-11-2022 Hemoglobin Auto test strip Ql (U) Negative Negative [facility] Urine leukocyte esterase det ection by automated test stripOrdered By: Ke Cage on 12-11-2022 Leukocyte esterase Auto test strip Ql (U) 2+ Negative [facility] Urine nitrite detection by a utomated test stripOrdered By: Ke Cage on 12-11-2022 Nitrite Auto test strip Ql (U) Negative Negative [facility] Urobilinogen Auto test strip (U) [Mass/Vol]Ordered By: Ke Cage on 12-11-2022 Urobilinogen (U) [Mass/Vol] Normal mg/dL Normal [facility] Vitamin D+Metabolites [Mass/ volume] in Serum or PlasmaOrdered By: Eduardo Swain on 12-11-2022 Vitamin D+Metabolites [Mass/Vol] 36.5 ng/mL 30-100 [facility] Comment on above: VITAMIN D STATUS 25( [place])VITAMIN D RANGE (ng/mL) Deficient <20 Insufficient 20 to <30Sufficient 30 to 100Reference: Franklyn MF,Benjamin GRAF, Andreina MARQUEZ, et al. Evaluation,treatment, and prevention of vitamin D deficiency; an Endocrine Society clinical practice guideline. JCEM. 2010; 96(7):1911-30. WBC Auto (Bld) [#/Vol]Ordere d By: Ke Cage on 12-11-2022 WBC (Bld) [#/Vol] 5.8 10*3/uL 3.8-11.6 [facility] pH Auto test strip (U)Ordere d By: Ke Cage on 12-11-2022 pH (U) 1.015 [pH] 1.001-1.030 [facility] pH (U) 6.0 [pH] 5.0-9.0 [facility] Basophils Auto (Bld) [#/Vol] Ordered By: Afshan Hines on 11-01-2022 Basophils (Bld) [#/Vol] 0.0 10*3/uL 0.0-0.2 [facility] Basophils/100 WBC Auto (Bld) Ordered By: Afshan Hines on 11-01-2022 Basophils/100 WBC (Bld) 0.9 % . [facility] Calcium [Mass/volume] in Ser um or PlasmaOrdered By: Afshan Hines on 11-01-2022 Calcium [Mass/Vol] 8.8 mg/dL 8.6-10.3 [facility] Carbon dioxide, total [Moles /volume] in Serum or PlasmaOrdered By: Afshan Hines on 11-01-2022 CO2 [Moles/Vol] 26.4 mmol/L 21.0-31.0 [facility] Chloride [Moles/volume] in S mac or PlasmaOrdered By: Afshan Hines on 11-01-2022 Chloride [Moles/Vol] 107 mmol/L 98-107 [facility] Creatinine [Mass/volume] in Serum or PlasmaOrdered By: Afshan Hines on 11-01-2022 Creatinine [Mass/Vol] 0.82 mg/dL 0.60-1.20 [facility] Eosinophils Auto (Bld) [#/Vo l]Ordered By: Afshan Hines on 11-01-2022 Eosinophils (Bld) [#/Vol] 0.2 10*3/uL 0.0-0.45 [facility] Eosinophils/100 WBC Auto (Bl d)Ordered By: Afshan Hines on 11-01-2022 Eosinophils/100 WBC (Bld) 4.2 % . [facility] Erythrocyte distribution wid th Auto (RBC) [Ratio]Ordered By: Afshan Hines on 11-01-2022 Erythrocyte distribution width (RBC) [Ratio] 12.9 % 11.9-15.3 [facility] Glucose [Mass/volume] in Ser um or PlasmaOrdered By: Afshan Hines on 11-01-2022 Glucose [Mass/Vol] 74 mg/dL 70-100 [facility] Comment on above: ADA recommended refe rence rangeRandom Glucose Reference Range is dependent on time and content of last meal. Glucose of more than 200 mg/dL in a nonstressed, ambulatory subject supports the diagnosis of Diabetes Mellitus. Hematocrit Auto (Bld) [Volum e fraction]Ordered By: Afshan Hines on 11-01-2022 Hematocrit (Bld) [Volume fraction] 37.5 % 34.0-46.4 [facility] Hemoglobin [Mass/volume] in BloodOrdered By: Afshan Hines on 11-01-2022 Hemoglobin (Bld) [Mass/Vol] 12.5 g/dL 11.8-15.4 [facility] Leukocytes [#/volume] correc nneka for nucleated erythrocytes in Blood by Automated counOrdered By: Afshan Hines on 11-01-2022 WBC corrected for nucl RBC Auto (Bld) [#/Vol] 5.1 10*3/uL 3.8-11.6 [facility] Lymphocytes Auto (Bld) [#/Vo l]Ordered By: Afshan Hines on 11-01-2022 Lymphocytes (Bld) [#/Vol] 1.8 10*3/uL 1.00-4.8 [facility] Lymphocytes/100 WBC Auto (Bl d)Ordered By: Afshan Hines on 11-01-2022 Lymphocytes/100 WBC (Bld) 34.7 % . [facility] MCH Auto (RBC) [Entitic mass ]Ordered By: Afshan Hines on 11-01-2022 MCH (RBC) [Entitic mass] 32.2 pg 24.7-34.3 [facility] MCHC Auto (RBC) [Mass/Vol]Or dered By: Afshan Hines on 11-01-2022 MCHC (RBC) [Mass/Vol] 33.4 g/dL 32.0-35.0 [facility] MCV Auto (RBC) [Entitic vol] Ordered By: Afshan Hines on 11-01-2022 MCV (RBC) [Entitic vol] 96.5 fL 80-100 [facility] Monocytes Auto (Bld) [#/Vol] Ordered By: Afshan Hines on 11-01-2022 Monocytes (Bld) [#/Vol] 0.3 10*3/uL 0.0-0.8 [facility] Monocytes/100 WBC Auto (Bld) Ordered By: Afshan Hines on 11-01-2022 Monocytes/100 WBC (Bld) 6.1 % . [facility] Neutrophils Auto (Bld) [#/Vo l]Ordered By: Afshan Hines on 11-01-2022 Neutrophils (Bld) [#/Vol] 2.8 10*3/uL 1.8-7.7 [facility] Neutrophils/100 WBC Auto (Bl d)Ordered By: Afshan Hines on 11-01-2022 Neutrophils/100 WBC (Bld) 54.1 % . [facility] No Panel InformationOrdered By: Afshan Hines on 11-01-2022 Estimated GFR (CKD-EPI) > 60.0 mL/Min [facility] Creatinine Clearance (Chem 114.96 [facility] Nucleated erythrocytes [Pres ence] in Blood by Automated countOrdered By: Afshan Hines on 11-01-2022 Nucleated RBC Auto Ql (Bld) 0.1 /100{WBC} 0-0.5 [facility] Platelet mean volume Auto (B ld) [Entitic vol]Ordered By: Afshan Hines on 11-01-2022 Platelet mean volume (Bld) [Entitic vol] 7.8 fL 6.3-10.7 [facility] Platelets Auto (Bld) [#/Vol] Ordered By: Afshan Hines on 11-01-2022 Platelets (Bld) [#/Vol] 184 10*3/uL 150-450 [facility] Potassium [Moles/volume] in Serum or PlasmaOrdered By: Afshan Hines on 11-01-2022 Potassium [Moles/Vol] 4.0 mmol/L 3.5-5.1 [facility] RBC Auto (Bld) [#/Vol]Ordere d By: Afshan Hines on 11-01-2022 RBC (Bld) [#/Vol] 3.89 10*6/uL 3.60-5.00 [facility] Serum or plasma anion gap de terminationOrdered By: Afshan Hines on 11-01-2022 Anion gap [Moles/Vol] 10.6 mmol/L 6.0-15.0 [facility] Sodium [Moles/volume] in Ser um or PlasmaOrdered By: Afshan Hines on 11-01-2022 Sodium [Moles/Vol] 140 mmol/L 136-145 [facility] Urea nitrogen [Mass/volume] in Serum or PlasmaOrdered By: Afshan Hines on 11-01-2022 Urea nitrogen [Mass/Vol] 14 mg/dL 7-25 [facility] Vitamin B12 ser/plasOrdered By: Afshan Hines on 11-01-2022 Cobalamin (Vitamin B12) [Mass/Vol] 205 pg/mL 180-914 [facility] WBC Auto (Bld) [#/Vol]Ordere d By: Afshan Hines on 11-01-2022 WBC (Bld) [#/Vol] 5.1 10*3/uL 3.8-11.6 [facility] Alanine aminotransferase [En zymatic activity/volume] in Serum or PlasmaOrdered By: Afshan Hines on 2022 ALT [Catalytic activity/Vol] 10 U/L 7-52 [facility] Albumin [Mass/volume] in Ser um or Plasma by Bromocresol green (BCG) dye binding methoOrdered By: Afshan Hines on 2022 Albumin BCG dye [Mass/Vol] 3.4 g/dL 3.5-5.7 [facility] Alkaline phosphatase [Enzyma tic activity/volume] in Serum or PlasmaOrdered By: Afshan Hines on 2022 ALP [Catalytic activity/Vol] 66 U/L 34-104 [facility] Aspartate aminotransferase [ Enzymatic activity/volume] in Serum or PlasmaOrdered By: Afshan Hines on 2022 AST [Catalytic activity/Vol] 15 U/L 13-39 [facility] Bilirubin.total [Mass/volume ] in Serum or PlasmaOrdered By: Afshan Hines on 2022 Bilirubin [Mass/Vol] 0.7 mg/dL 0.3-1.0 [facility] Globulin Calc (S) [Mass/Vol] Ordered By: Afshan Hines on 2022 Globulin (S) [Mass/Vol] 2.2 g/dL [facility] Protein [Mass/volume] in Ser um or PlasmaOrdered By: Afshan Hines on 2022 Protein [Mass/Vol] 5.6 g/dL 6.4-8.9 [facility] Serum or plasma albumin/glob ulin mass ratioOrdered By: Afshan Hines on 2022 Albumin/Globulin [Mass ratio] 1.5 {ratio} [facility] Cholesterol [Mass/volume] in Serum or PlasmaOrdered By: Nimesh Cerda on 10-29-2022 Cholesterol [Mass/Vol] 181 mg/dL 140-200 [facility] Comment on above: Chol less than 200 m g/dl low riskChol 201-239 mg/dl borderline riskChol 240 mg/dl and greater high risk Cholesterol in LDL Calc [Mas s/Vol]Ordered By: Nimesh Cerda on 10-29-2022 Cholesterol in LDL [Mass/Vol] 99 mg/dL 0-100 [facility] Comment on above: LDL ATP III CLASSIFI CATIONLDL less than 100 mg/dL OptimalLDL 100-129 mg/dL Near or above optimalLDL 130-159 mg/dL Borderline highLDL 160-189 mg/dL HighLDL greater than 189 mg/dL Very high Cholesterol in VLDL Calc [Ma ss/Vol]Ordered By: Nimesh Cerda on 10-29-2022 Cholesterol in VLDL [Mass/Vol] 18 mg/dL [facility] Serum or plasma high density lipoprotein (HDL) cholesterol measurementOrdered By: Nimesh Cerda on 10-29-2022 Cholesterol in HDL [Mass/Vol] 64 mg/dL 35-85 [facility] Comment on above: HDL CHOL ATP-III CLA SSIFICATION Cardiovascular RiskHDL > or equal to 60 mg/dL LOWHDL < 40 mg/dL HIGH Serum or plasma total choles terol/high density lipoprotein (HDL) cholesterol mass ratOrdered By: Nimesh Cerda on 10-29-2022 Cholesterol.total/Chol esterol in HDL [Mass ratio] 2.8 {ratio} <5.0 [facility] Thyrotropin [Units/volume] i n Serum or PlasmaOrdered By: Nimesh Cerda on 10-29-2022 TSH Qn 0.60 m[IU]/L 0.45-5.33 [facility] Triglyceride [Mass/volume] i n Serum or PlasmaOrdered By: Nimesh Cerda on 10-29-2022 Triglyceride [Mass/Vol] 92 mg/dL 0-149 [facility] Comment on above: TRIG ATP III CLASSIF ICATIONTRIG less than 150 mg/dL NormalTRIG 150-199 mg/dL Borderline highTRIG 200-500 mg/dL High TRIG greater than 500 mg/dL Very highStandard traceable to the Center for Disease Conrtrol and Prevention (CDC) test method. Vitamin D+Metabolites [Mass/ volume] in Serum or PlasmaOrdered By: Nimesh Cerda on 10-29-2022 Vitamin D+Metabolites [Mass/Vol] 26.3 ng/mL 30-100 [facility] Comment on above: VITAMIN D STATUS [...] [Catalytic activity/Vol] 11 U/L 7-52 [facility] Albumin [Mass/volume] in Ser um or Plasma by Bromocresol green (BCG) dye binding methoOrdered By: Keven Florentino on 10-28-2022 Albumin BCG dye [Mass/Vol] 3.7 g/dL 3.5-5.7 [facility] Alkaline phosphatase [Enzyma tic activity/volume] in Serum or PlasmaOrdered By: Keven Florentino on 10-28-2022 ALP [Catalytic activity/Vol] 74 U/L 34-104 [facility] Amphetamine Screen Ql (U)Ord ered By: Keven Florentino on 10-28-2022 Amphetamines Ql (U) Negative Negative [facility] Aspartate aminotransferase [ Enzymatic activity/volume] in Serum or PlasmaOrdered By: Keven Florentino on 10-28-2022 AST [Catalytic activity/Vol] 15 U/L 13-39 [facility] Automated erythrocytes count in urine sediment (number/area)Ordered By: Keven Florentino on 10-28-2022 RBC Auto (Urine sed) [#/Area] 1-2 [HPF] 0-4 [facility] Automated leukocytes count i n urine sediment (number/area)Ordered By: Keven Florentino on 10-28-2022 WBC Auto (Urine sed) [#/Area] 10-19 [HPF] 0-4 [facility] Barbiturates [Presence] in U rine by Screen methodOrdered By: Keven Florentino on 10-28-2022 Barbiturates Screen Ql (U) Negative Negative [facility] Basophils Auto (Bld) [#/Vol] Ordered By: Keven Florentino on 10-28-2022 Basophils (Bld) [#/Vol] 0.0 10*3/uL 0.0-0.2 [facility] Basophils/100 WBC Auto (Bld) Ordered By: Keven Florentino on 10-28-2022 Basophils/100 WBC (Bld) 0.7 % . [facility] Benzodiazepines Screen Ql (U )Ordered By: Keven Florentino on 10-28-2022 Benzodiazepines Ql (U) Negative Negative [facility] Benzoylecgonine [Presence] i n Urine by Screen methodOrdered By: Keven Florentino on 10-28-2022 Benzoylecgonine Screen Ql (U) Negative Negative [facility] Bilirubin Test strip Ql (U)O rdered By: Keven Florentino on 10-28-2022 Bilirubin Ql (U) Negative Negative [facility] Bilirubin.total [Mass/volume ] in Serum or PlasmaOrdered By: Keven Florentino on 10-28-2022 Bilirubin [Mass/Vol] 0.5 mg/dL 0.3-1.0 [facility] Calcium [Mass/volume] in Ser um or PlasmaOrdered By: Keven Florentino on 10-28-2022 Calcium [Mass/Vol] 8.5 mg/dL 8.6-10.3 [facility] Cannabinoids [Presence] in U rine by Screen methodOrdered By: Keven Florentino on 10-28-2022 Cannabinoids Screen Ql (U) Negative Negative [facility] Comment on above: These are unconfirme [...] on 10-28-2022 Chloride [Moles/Vol] 109 mmol/L 98-107 [facility] Color Auto (U)Ordered By: Anibal red Mishel on 10-28-2022 Color (U) Dark yellow Yellow [facility] Creatinine [Mass/volume] in Serum or PlasmaOrdered By: Keven Florentino on 10-28-2022 Creatinine [Mass/Vol] 0.70 mg/dL 0.60-1.20 [facility] Eosinophils Auto (Bld) [#/Vo l]Ordered By: Keven Florentino on 10-28-2022 Eosinophils (Bld) [#/Vol] 0.2 10*3/uL 0.0-0.45 [facility] Eosinophils/100 WBC Auto (Bl d)Ordered By: Keven Florentino on 10-28-2022 Eosinophils/100 WBC (Bld) 3.9 % . [facility] Erythrocyte distribution wid th Auto (RBC) [Ratio]Ordered By: Keven Florentino on 10-28-2022 Erythrocyte distribution width (RBC) [Ratio] 13.0 % 11.9-15.3 [facility] Ethanol [Mass/volume] in Ser um or PlasmaOrdered By: Keven Florentino on 10-28-2022 Ethanol [Mass/Vol] mg/dL [facility] Ethanol [Mass/Vol] TNP [facility] Comment on above: Test not performed Globulin Calc (S) [Mass/Vol] Ordered By: Keven Florentino on 10-28-2022 Globulin (S) [Mass/Vol] 2.4 g/dL [facility] Glucose [Mass/volume] in Ser um or PlasmaOrdered By: Keven Florentino on 10-28-2022 Glucose [Mass/Vol] 91 mg/dL 70-100 [facility] Comment on above: ADA recommended refe rence rangeRandom Glucose Reference Range is dependent on time and content of last meal. Glucose of more than 200 mg/dL in a nonstressed, ambulatory subject supports the diagnosis of Diabetes Mellitus. HCG ( test) IA.rapi d Ql (U)Ordered By: Keven Florentino on 10-28-2022 HCG ( test) Ql (U) Negative [facility] Hematocrit Auto (Bld) [Volum e fraction]Ordered By: Keven Florentino on 10-28-2022 Hematocrit (Bld) [Volume fraction] 36.0 % 34.0-46.4 [facility] Hemoglobin [Mass/volume] in BloodOrdered By: Keven Florentino on 10-28-2022 Hemoglobin (Bld) [Mass/Vol] 12.1 g/dL 11.8-15.4 [facility] Ketones Auto test strip (U) [Mass/Vol]Ordered By: Keven Florentino on 10-28-2022 Ketones (U) [Mass/Vol] Trace Negative [facility] Laboratory - UrinalysisOrder ed By: Keven Florentino on 10-28-2022 Hyaline casts LM Ql (Urine sed) 0-8 [LPF] 0-8 [facility] Leukocytes [#/volume] correc nneka for nucleated erythrocytes in Blood by Automated counOrdered By: Keven Florentino on 10-28-2022 WBC corrected for nucl RBC Auto (Bld) [#/Vol] 6.1 10*3/uL 3.8-11.6 [facility] Lymphocytes Auto (Bld) [#/Vo l]Ordered By: Keven Florentino on 10-28-2022 Lymphocytes (Bld) [#/Vol] 1.2 10*3/uL 1.00-4.8 [facility] Lymphocytes/100 WBC Auto (Bl d)Ordered By: Keven Florentino on 10-28-2022 Lymphocytes/100 WBC (Bld) 19.9 % . [facility] MCH Auto (RBC) [Entitic mass ]Ordered By: Keven Florentino on 10-28-2022 MCH (RBC) [Entitic mass] 32.4 pg 24.7-34.3 [facility] MCHC Auto (RBC) [Mass/Vol]Or dered By: Keven Florentino on 10-28-2022 MCHC (RBC) [Mass/Vol] 33.7 g/dL 32.0-35.0 [facility] MCV Auto (RBC) [Entitic vol] Ordered By: Keven Florentino on 10-28-2022 MCV (RBC) [Entitic vol] 96.1 fL 80-100 [facility] Monocyte distribution width [Entitic volume] in Blood by AutomatedOrdered By: Keven Florentino on 10-28-2022 Monocyte distribution width Auto (Bld) [Entitic vol] 17.88 % 0.00-20.00 [facility] Monocytes Auto (Bld) [#/Vol] Ordered By: Keven Florentino on 10-28-2022 Monocytes (Bld) [#/Vol] 0.4 10*3/uL 0.0-0.8 [facility] Monocytes/100 WBC Auto (Bld) Ordered By: Keven Florentino on 10-28-2022 Monocytes/100 WBC (Bld) 6.5 % . [facility] Neutrophils Auto (Bld) [#/Vo l]Ordered By: Keven Florentino on 10-28-2022 Neutrophils (Bld) [#/Vol] 4.2 10*3/uL 1.8-7.7 [facility] Neutrophils/100 WBC Auto (Bl d)Ordered By: Keven Florentino on 10-28-2022 Neutrophils/100 WBC (Bld) 69.0 % . [facility] Nitrite Test strip Ql (U)Ord ered By: Keven Florentino on 10-28-2022 Nitrite Ql (U) Negative Negative [facility] No Panel InformationOrdered By: Keven Florentino on 10-28-2022 Estimated GFR (CKD-EPI) > 60.0 mL/Min [facility] Creatinine Clearance (Chem 136.41 [facility] Nucleated erythrocytes [Pres ence] in Blood by Automated countOrdered By: Keven Florentino on 10-28-2022 Nucleated RBC Auto Ql (Bld) 0.2 /100{WBC} 0-0.5 [facility] Opiates [Presence] in Urine by Screen methodOrdered By: Keven Florentino on 10-28-2022 Opiates Screen Ql (U) Negative Negative [facility] Phencyclidine Screen Ql (U)O rdered By: Keven Florentino on 10-28-2022 Phencyclidine Ql (U) Negative Negative [facility] Platelet mean volume Auto (B ld) [Entitic vol]Ordered By: Keven Florentino on 10-28-2022 Platelet mean volume (Bld) [Entitic vol] 7.5 fL 6.3-10.7 [facility] Platelets Auto (Bld) [#/Vol] Ordered By: Keven Florentino on 10-28-2022 Platelets (Bld) [#/Vol] 177 10*3/uL 150-450 [facility] Potassium [Moles/volume] in Serum or PlasmaOrdered By: Keven Florentino on 10-28-2022 Potassium [Moles/Vol] 3.8 mmol/L 3.5-5.1 [facility] Protein Auto test strip (U) [Mass/Vol]Ordered By: Keven Florentino on 10-28-2022 Protein (U) [Mass/Vol] Negative Negative [facility] Protein [Mass/volume] in Ser um or PlasmaOrdered By: Keven Florentino on 10-28-2022 Protein [Mass/Vol] 6.1 g/dL 6.4-8.9 [facility] RBC Auto (Bld) [#/Vol]Ordere d By: Keven Florentino on 10-28-2022 RBC (Bld) [#/Vol] 3.74 10*6/uL 3.60-5.00 [facility] Serum or plasma albumin/glob ulin mass ratioOrdered By: Keven Florentino on 10-28-2022 Albumin/Globulin [Mass ratio] 1.5 {ratio} [facility] Serum or plasma anion gap de terminationOrdered By: Keven Florentino on 10-28-2022 Anion gap [Moles/Vol] 11.2 mmol/L 6.0-15.0 [facility] Sodium [Moles/volume] in Ser um or PlasmaOrdered By: Keven Florentino on 10-28-2022 Sodium [Moles/Vol] 141 mmol/L 136-145 [facility] Specific gravity Auto test s trip (U) [Rel density]Ordered By: Keven Florentino on 10-28-2022 Specific gravity (U) [Rel density] 1.024 1.001-1.030 [facility] Squamous epithelial cells de tection in urine sediment by light microscopyOrdered By: Keven Florentino on 10-28-2022 Epithelial cells.squamous LM Ql (Urine sed) 5-9 [HPF] 0-2 [facility] Urea nitrogen [Mass/volume] in Serum or PlasmaOrdered By: Keven Florentino on 10-28-2022 Urea nitrogen [Mass/Vol] 15 mg/dL 7-25 [facility] Urine bacteria detection by automated methodOrdered By: Keven Florentino on 10-28-2022 Bacteria Auto Ql (U) None seen None Seen [facility] Urine clarity by refractomet ry automatedOrdered By: Keven Florentino on 10-28-2022 Clarity Refractometry automated (U) Clear Clear [facility] Urine culture routineOrdered By: Keven Florentino on 10-28-2022 Bacteria identified Cx Nom (U) 2 Days [facility] Urine glucose measurement by automated test strip (mass/volume)Ordered By: Keven Florentino on 10-28-2022 Glucose Auto test strip (U) [Mass/Vol] Normal mg/dL Normal [facility] Urine hemoglobin detection b y automated test stripOrdered By: Keven Florentino on 10-28-2022 Hemoglobin Auto test strip Ql (U) Negative Negative [facility] Urine leukocyte esterase det ection by automated test stripOrdered By: Keven Florentino on 10-28-2022 Leukocyte esterase Auto test strip Ql (U) 3+ Negative [facility] Urobilinogen Auto test strip (U) [Mass/Vol]Ordered By: Keven Florentino on 10-28-2022 Urobilinogen (U) [Mass/Vol] mg/dL Normal [facility] WBC Auto (Bld) [#/Vol]Ordere d By: Keven Florentino on 10-28-2022 WBC (Bld) [#/Vol] 6.1 10*3/uL 3.8-11.6 [facility] pH Auto test strip (U)Ordere d By: Keven Florentino on 10-28-2022 pH (U) 6.0 [pH] 5.0-9.0 [facility] Alanine aminotransferase [En zymatic activity/volume] in Serum or PlasmaOrdered By: Chelsie Cortez on 10-18-2022 ALT [Catalytic activity/Vol] 20 U/L 7-52 [facility] Albumin [Mass/volume] in Ser um or Plasma by Bromocresol green (BCG) dye binding methoOrdered By: Chelsie Cortez on 10-18-2022 Albumin BCG dye [Mass/Vol] 3.9 g/dL 3.5-5.7 [facility] Alkaline phosphatase [Enzyma tic activity/volume] in Serum or PlasmaOrdered By: Chelsie Cortez on 10-18-2022 ALP [Catalytic activity/Vol] 99 U/L 34-104 [facility] Aspartate aminotransferase [ Enzymatic activity/volume] in Serum or PlasmaOrdered By: Chelsie Cortez on 10-18-2022 AST [Catalytic activity/Vol] 20 U/L 13-39 [facility] Automated erythrocytes count in urine sediment (number/area)Ordered By: Chelsie Cortez on 10-18-2022 RBC Auto (Urine sed) [#/Area] 0-1 [HPF] 0-4 [facility] Automated leukocytes count i n urine sediment (number/area)Ordered By: Chelsie Cortez on 10-18-2022 WBC Auto (Urine sed) [#/Area] 20-49 [HPF] 0-4 [facility] Basophils Auto (Bld) [#/Vol] Ordered By: Chelsie Cortez on 10-18-2022 Basophils (Bld) [#/Vol] 0.0 10*3/uL 0.0-0.2 [facility] Basophils/100 WBC Auto (Bld) Ordered By: Chelsiemariah Cortez on 10-18-2022 Basophils/100 WBC (Bld) 0.8 % . [facility] Bilirubin Test strip Ql (U)O rdered By: Chelsie Cortez on 10-18-2022 Bilirubin Ql (U) Negative Negative [facility] Bilirubin.direct [Mass/volum e] in Serum or PlasmaOrdered By: Chelsie Cortez on 10-18-2022 Bilirubin.direct [Mass/Vol] 0.10 mg/dL 0.03-0.18 [facility] Bilirubin.total [Mass/volume ] in Serum or PlasmaOrdered By: Chelsie Cortez on 10-18-2022 Bilirubin [Mass/Vol] 0.6 mg/dL 0.3-1.0 [facility] Calcium [Mass/volume] in Ser um or PlasmaOrdered By: Chelsie Cortez on 10-18-2022 Calcium [Mass/Vol] 8.8 mg/dL 8.6-10.3 [facility] Carbon dioxide, total [Moles /volume] in Serum or PlasmaOrdered By: Chelsie Cortez on 10-18-2022 CO2 [Moles/Vol] 26.5 mmol/L 21.0-31.0 [facility] Chloride [Moles/volume] in S mac or PlasmaOrdered By: Chelsie Cortez on 10-18-2022 Chloride [Moles/Vol] 107 mmol/L 98-107 [facility] Color Auto (U)Ordered By: Jose Cortez on 10-18-2022 Color (U) Yellow Yellow [facility] Creatinine [Mass/volume] in Serum or PlasmaOrdered By: Chelsie Cortez on 10-18-2022 Creatinine [Mass/Vol] 0.83 mg/dL 0.60-1.20 [facility] Eosinophils Auto (Bld) [#/Vo l]Ordered By: Chelsie Cortez on 10-18-2022 Eosinophils (Bld) [#/Vol] 0.1 10*3/uL 0.0-0.45 [facility] Eosinophils/100 WBC Auto (Bl d)Ordered By: Chelsie Cortez on 10-18-2022 Eosinophils/100 WBC (Bld) 1.2 % . [facility] Erythrocyte distribution wid th Auto (RBC) [Ratio]Ordered By: Chelsie Cortez on 10-18-2022 Erythrocyte distribution width (RBC) [Ratio] 13.1 % 11.9-15.3 [facility] Globulin Calc (S) [Mass/Vol] Ordered By: Chelsie Cortez on 10-18-2022 Globulin (S) [Mass/Vol] 2.8 g/dL [facility] Glucose [Mass/volume] in Ser um or PlasmaOrdered By: Chelsie Cortez on 10-18-2022 Glucose [Mass/Vol] 101 mg/dL 70-100 [facility] Comment on above: ADA recommended refe rence rangeRandom Glucose Reference Range is dependent on time and content of last meal. Glucose of more than 200 mg/dL in a nonstressed, ambulatory subject supports the diagnosis of Diabetes Mellitus. HCG ( test) IA.rapi d Ql (U)Ordered By: Chelsie Cortez on 10-18-2022 HCG ( test) Ql (U) Negative [facility] Hematocrit Auto (Bld) [Volum e fraction]Ordered By: Chelsie Cortez on 10-18-2022 Hematocrit (Bld) [Volume fraction] 35.1 % 34.0-46.4 [facility] Hemoglobin [Mass/volume] in BloodOrdered By: Chelsie Cortez on 10-18-2022 Hemoglobin (Bld) [Mass/Vol] 12.0 g/dL 11.8-15.4 [facility] Ketones Auto test strip (U) [Mass/Vol]Ordered By: Chelsie Cortez on 10-18-2022 Ketones (U) [Mass/Vol] Negative Negative [facility] Laboratory - UrinalysisOrder ed By: Chelsie Cortez on 10-18-2022 Hyaline casts LM Ql (Urine sed) 0-8 [LPF] 0-8 [facility] Leukocytes [#/volume] correc nneka for nucleated erythrocytes in Blood by Automated counOrdered By: Chelsie Cortez on 10-18-2022 WBC corrected for nucl RBC Auto (Bld) [#/Vol] 6.3 10*3/uL 3.8-11.6 [facility] Lipase [Enzymatic activity/v olume] in Serum or PlasmaOrdered By: Chelsie Cortez on 10-18-2022 Lipase [Catalytic activity/Vol] 42.0 U/L 11.0-82.0 [facility] Lymphocytes Auto (Bld) [#/Vo l]Ordered By: Chelsie Cortez on 10-18-2022 Lymphocytes (Bld) [#/Vol] 1.4 10*3/uL 1.00-4.8 [facility] Lymphocytes/100 WBC Auto (Bl d)Ordered By: Chelsie Cortez on 10-18-2022 Lymphocytes/100 WBC (Bld) 22.0 % . [facility] MCH Auto (RBC) [Entitic mass ]Ordered By: Chelsie Cortez on 10-18-2022 MCH (RBC) [Entitic mass] 33.0 pg 24.7-34.3 [facility] MCHC Auto (RBC) [Mass/Vol]Or dered By: Chelsie Cortez on 10-18-2022 MCHC (RBC) [Mass/Vol] 34.2 g/dL 32.0-35.[address] [facility] MCV Auto (RBC) [Entitic vol] Ordered By: Chelsie Cortez on 10-18-2022 MCV (RBC) [Entitic vol] 96.5 fL 80-100 [facility] Magnesium [Mass/volume] in S mac or PlasmaOrdered By: Chelsie Cortez on 10-18-2022 Magnesium [Mass/Vol] 2.1 mg/dL 1.9-2.7 [facility] Monocytes Auto (Bld) [#/Vol] Ordered By: Chelsie Cortez on 10-18-2022 Monocytes (Bld) [#/Vol] 0.5 10*3/uL 0.0-0.8 [facility] Monocytes/100 WBC Auto (Bld) Ordered By: Chelsie Cortez on 10-18-2022 Monocytes/100 WBC (Bld) 7.2 % . [facility] Neutrophils Auto (Bld) [#/Vo l]Ordered By: Chelsie Cortez on 10-18-2022 Neutrophils (Bld) [#/Vol] 4.3 10*3/uL 1.8-7.7 [facility] Neutrophils/100 WBC Auto (Bl d)Ordered By: Chelsie Cortez on 10-18-2022 Neutrophils/100 WBC (Bld) 68.8 % . [facility] Nitrite Test strip Ql (U)Ord ered By: Chelsie Cortez on 10-18-2022 Nitrite Ql (U) Negative Negative [facility] No Panel InformationOrdered By: Chelsie Cortez on 10-18-2022 Estimated GFR (CKD-EPI) > 60.0 mL/Min [facility] Creatinine Clearance (Chem 115.47 [facility] Nucleated erythrocytes [Pres ence] in Blood by Automated countOrdered By: Chelsie Cortez on 10-18-2022 Nucleated RBC Auto Ql (Bld) 0.1 /100{WBC} 0-0.5 [facility] Platelet mean volume Auto (B ld) [Entitic vol]Ordered By: Chelsie Cortez on 10-18-2022 Platelet mean volume (Bld) [Entitic vol] 7.6 fL 6.3-10.7 [facility] Platelets Auto (Bld) [#/Vol] Ordered By: Chelsie Cortez on 10-18-2022 Platelets (Bld) [#/Vol] 170 10*3/uL 150-450 [facility] Potassium [Moles/volume] in Serum or PlasmaOrdered By: Chelsie Cortez on 10-18-2022 Potassium [Moles/Vol] 4.2 mmol/L 3.5-5.1 [facility] Protein Auto test strip (U) [Mass/Vol]Ordered By: Chelsie Cortez on 10-18-2022 Protein (U) [Mass/Vol] Negative Negative [facility] Protein [Mass/volume] in Ser um or PlasmaOrdered By: Chelsie Cotrez on 10-18-2022 Protein [Mass/Vol] 6.7 g/dL 6.4-8.9 [facility] RBC Auto (Bld) [#/Vol]Ordere d By: Chelsie Cortez on 10-18-2022 RBC (Bld) [#/Vol] 3.64 10*6/uL 3.60-5.00 [facility] Serum or plasma albumin/glob ulin mass ratioOrdered By: Chelsie Cortez on 10-18-2022 Albumin/Globulin [Mass ratio] 1.4 {ratio} [facility] Serum or plasma anion gap de terminationOrdered By: Chelsie Cortez on 10-18-2022 Anion gap [Moles/Vol] 9.7 mmol/L 6.0-15.0 [facility] Serum or plasma non-glucuron idated bilirubin measurement (mass/volume)Ordered By: Chelsie Cortez on 10-18-2022 Bilirubin.indirect [Mass/Vol] 0.5 mg/dL [facility] Sodium [Moles/volume] in Ser um or PlasmaOrdered By: Chelsie Cortez on 10-18-2022 Sodium [Moles/Vol] 139 mmol/L 136-145 [facility] Specific gravity Auto test s trip (U) [Rel density]Ordered By: Chelsie Cortez on 10-18-2022 Specific gravity (U) [Rel density] 1.011 1.001-1.030 [facility] Squamous epithelial cells de tection in urine sediment by light microscopyOrdered By: Chelsie Cortez on 10-18-2022 Epithelial cells.squamous LM Ql (Urine sed) 3-4 [HPF] 0-2 [facility] Urea nitrogen [Mass/volume] in Serum or PlasmaOrdered By: Chelsie Cortez on 10-18-2022 Urea nitrogen [Mass/Vol] 9 mg/dL 7-25 [facility] Urine bacteria detection by automated methodOrdered By: Chelsie Cortez on 10-18-2022 Bacteria Auto Ql (U) None seen None Seen [facility] Urine clarity by refractomet ry automatedOrdered By: Chelsie Cortez on 10-18-2022 Clarity Refractometry automated (U) Clear Clear [facility] Urine culture routineOrdered By: Chelsie Cortez on 10-18-2022 Bacteria identified Cx Nom (U) 2 Days [facility] Urine glucose measurement by automated test strip (mass/volume)Ordered By: Chelsie Cortez on 10-18-2022 Glucose Auto test strip (U) [Mass/Vol] Normal mg/dL Normal [facility] Urine hemoglobin detection b y automated test stripOrdered By: Chelsie Cortez on 10-18-2022 Hemoglobin Auto test strip Ql (U) Negative Negative [facility] Urine leukocyte esterase det ection by automated test stripOrdered By: Chelsie Cortez on 10-18-2022 Leukocyte esterase Auto test strip Ql (U) 3+ Negative [facility] Urobilinogen Auto test strip (U) [Mass/Vol]Ordered By: Chelsie Cortez on 10-18-2022 Urobilinogen (U) [Mass/Vol] Normal mg/dL Normal [facility] WBC Auto (Bld) [#/Vol]Ordere d By: Chelsie Cortez on 10-18-2022 WBC (Bld) [#/Vol] 6.3 10*3/uL 3.8-11.6 [facility] pH Auto test strip (U)Ordere d By: Chelsie Cortez on 10-18-2022 pH (U) 5.5 [pH] 5.0-9.0 [facility] AMYLASEon 10-16-2022 Amylase [Catalytic activity/Vol] 42 U/L Normal 25-115 [facility] Comment on above: Performed By: #### C MP, LIPA, GRETTA #### [facility] [address] [place] [address] Dr. Kinjal Rivers CBC AUTO DIFFon 10-16-2022 BASO # 0.0 103/ul Normal 0.0-0.1 [facility] Comment on above: Performed By: #### C BC #### [facility] [address] [place] [address] Dr. Kinjal Rivers Basophils/100 WBC (Bld) 0.6 % Normal 0.2-2.0 [facility] Comment on above: Performed By: #### C BC #### [facility] [address] [place] [address] Dr. Kinjal Rivers EO # 0.1 103/ul Normal 0.0-0.7 [facility] Comment on above: Performed By: #### C BC #### [facility] [address] [place] [address] Dr. Kinjal Rivers Eosinophils/100 WBC (Bld) 2.1 % Normal 0.9-7.0 [facility] Comment on above: Performed By: #### C BC #### [facility] [address] [place] [address] Dr. Kinjal Rivers Erythrocyte distribution width (RBC) [Ratio] 12.4 % Normal 11.0-15.0 [facility] Comment on above: Performed By: #### C BC #### [facility] [address] [place] [address] Dr. Kinjal Rivers Hematocrit (Bld) [Volume fraction] 38.3 % Normal 36.0-48.0 [facility] Comment on above: Performed By: #### C BC #### [facility] [address] [place] [address] Dr. Kinjal Rivers Hemoglobin (Bld) [Mass/Vol] 12.8 g/dL Normal 12.0-16.0 [facility] Comment on above: Performed By: #### C BC #### [facility] [address] [place] [address] Dr. Kinjal Rivers IG # 0.02 10e3/ul Normal 0.00-0.03 [facility] Comment on above: Performed By: #### C BC #### [facility] [address] [place] [address] Dr. Kinjal Rivers IG % 0.3 % Normal 0.0-0.5 [facility] Comment on above: Performed By: #### C BC #### [facility] [address] [place] [address] Dr. Kinjal Rivers LYMPH # 1.5 103/ul Normal 1.2-3.8 [facility] Comment on above: Performed By: #### C BC #### [facility] [address] [place] [address] Dr. Kinjal Rivers Lymphocytes/100 WBC (Bld) 24.1 % Normal 20.5-60.0 [facility] Comment on above: Performed By: #### C BC #### [facility] [address] [place] [address] Dr. Kinjal Rivers MANUAL DIFF REQ NO Normal [facility] Comment on above: Performed By: #### C BC #### [facility] [address] [place] [address] Dr. Kinjal Rivers MCH (RBC) [Entitic mass] 32.7 pg Normal 26.7-34.0 [facility] Comment on above: Performed By: #### C BC #### [facility] [address] [address] [address] Kinjal Rivers MCHC (RBC) [Mass/Vol] 33.4 g/dL Normal 29.9-35.2 [facility] Comment on above: Performed By: #### C BC #### [facility] [address] [address] [address] Kinjal Rivers MCV (RBC) [Entitic vol] 97.7 fL Normal 81.0-99.0 [facility] Comment on above: Performed By: #### C BC #### [facility] [address] [place] [address] Dr. Kinjal Rivers MONO # 0.3 103/ul Normal 0.3-0.8 [facility] Comment on above: Performed By: #### C BC #### [facility] [address] [place] [address] Dr. Kinjal Rivers Monocytes/100 WBC (Bld) 5.5 % Normal 1.7-12.0 [facility] Comment on above: Performed By: #### C BC #### [facility] [address] [place] [address] Dr. Kinjal Rivers NEUT # 4.2 103/ul Normal 1.4-6.5 [facility] Comment on above: Performed By: #### C BC #### [facility] [address] [place] [address] Dr. Kinjal Rivers Neutrophils/100 WBC (Bld) 67.4 % Normal 43.0-75.0 [facility] Comment on above: Performed By: #### C BC #### [facility] [address] [place] [address] Dr. Kinjal Rivers Platelet mean volume (Bld) [Entitic vol] 9.2 fL Critically low 9.5-13.5 [facility] Comment on above: Performed By: #### C BC #### [facility] [address] [place] [address] Dr. Kinjal Rivers PLT 184 103/ul Normal 150-450 [facility] Comment on above: Performed By: #### C BC #### [facility] [address] [place] [address] Dr. Kinjal Rivers RBC 3.92 106/ul Critically low 4.20-5.40 [facility] Comment on above: Performed By: #### C BC #### [facility] [address] [place] [address] Dr. Kinjal Rivers WBC 6.2 103/ul Normal 4.0-11.0 [facility] Comment on above: Performed By: #### C BC #### [facility] [address] [place] [address] Dr. Kinjal Rivers CULTURE URINEon 10-16-2022 CULTURE URINE Culture Observations : LIGHT GROWTH OF MIXED GENITAL YOGESH. NO POTENTIAL PATHOGENS SEEN. Normal [facility] Comment on above: Performed By: #### U RCX #### [facility] [address] [place] [address] Dr. Kinjal Rivers ER URINE PROFILEon Bilirubin Ql (U) Negative Normal NEGATIVE [facility] Comment on above: Performed By: #### U MICRO, ERUR #### [facility] [address] [place] [address] Dr. Kinjal Rivers Clarity (U) SL CLOUDY Abnormal CLEAR [facility] Comment on above: Performed By: #### U MICRO, ERUR #### [facility] [address] [place] [address] Dr. Kinjal Rivers Color (U) LT. YELLOW Normal YELLOW [facility] Comment on above: Performed By: #### U MICRO, ERUR #### [facility] [address] [place] [address] Dr. Kinjal Rivers ERUAHD A micrscopic examina tion will be performed if indicated. Normal [facility] Comment on above: Performed By: #### U MICRO, ERUR #### [facility] [address] [place] [address] Dr. Kinjal Rivers Glucose Ql (U) Negative Normal NEGATIVE [facility] Comment on above: Performed By: #### U MICRO, ERUR #### [facility] [address] [address] [address] Kinjal Rivers Hemoglobin Ql (U) Negative Normal NEGATIVE [facility] Comment on above: Performed By: #### U MICRO, ERUR #### [facility] [address] [address] [address] Kinjal Rivers Ketones Ql (U) Negative Normal NEGATIVE [facility] Comment on above: Performed By: #### U MICRO, ERUR #### [facility] [address] [place] [address] Dr. Kinjal Rivers LEUKOCYTES TRACE Abnormal NEGATIVE [facility] Comment on above: Performed By: #### U MICRO, ERUR #### [facility] [address] [place] [address] Dr. Kinjal Rivers Nitrite Ql (U) Negative Normal NEGATIVE [facility] Comment on above: Performed By: #### U MICRO, ERUR #### [facility] [address] [place] [address] Dr. Kinjal Rivers pH (U) 5.0 [pH] Normal 5-9 [facility] Comment on above: Performed By: #### U MICRO, ERUR #### [facility] [address] [place] [address] Dr. Kinjal Rivers SPEC GRAVITY 1.030 Abnormal 1.005-<=1.0 25 [facility] Comment on above: Performed By: #### U MICRO, ERUR #### [facility] [address] [place] [address] Dr. Kinjal Rivers UA PROTEIN Negative Normal NEGATIVE/ TRACE [facility] Comment on above: Performed By: #### U MICRO, ERUR #### [facility] [address] [place] [address] Dr. Kinjal Rivers UR MICRO IND INDICATED Normal [facility] Comment on above: Performed By: #### U MICRO, ERUR #### [facility] [address] [place] [address] Dr. Kinjal Rivers Urobilinogen Qn (U) 1.0 {José'U}/dL Normal 0.2 - 1. 0 [facility] Comment on above: Performed By: #### U MICRO, ERUR #### [facility] [address] [place] [address] Dr. Kinjal Rivers LIPASEon 10-16-2022 Lipase [Catalytic activity/Vol] 133.0 U/L Normal 73.0-393.0 [facility] Comment on above: Performed By: #### C MP, LIPA, GRETTA #### [facility] [address] [place] [address] Dr. Kinjal Rivers PROF 14(COMP METB)on 023 Albumin [Mass/Vol] 3.7 g/dL Normal 3.4-5.0 [facility] Comment on above: Performed By: #### C MP, LIPA, GRETTA #### [facility] [address] [place] [address] Dr. Kinjal Rivers Albumin/Globulin [Mass ratio] 1.0 {ratio} Normal [facility] Comment on above: Performed By: #### C MP, LIPA, GRETTA #### [facility] [address] [place] [address] Dr. Kinjal Rivers ALP [Catalytic activity/Vol] 101 U/L Normal 46-116 [facility] Comment on above: Performed By: #### C MP, LIPA, GRETTA #### [facility] [address] [place] [address] Dr. Kinjal Rivers ALT [Catalytic activity/Vol] 27 U/L Normal 14-59 [facility] Comment on above: Performed By: #### C MP, LIPA, GRETTA #### [facility] [address] [place] [address] Dr. Kinjal Rivers Anion gap [Moles/Vol] 13.4 mmol/L Normal [facility] Comment on above: Performed By: #### C MP, LIPA, GRETTA #### [facility] [address] [place] [address] Dr. Kinjal Rivers AST [Catalytic activity/Vol] 23 U/L Normal 15-37 [facility] Comment on above: Performed By: #### C MP, LIPA, GRETTA #### [facility] [address] [place] [address] Dr. Kinjal Rivers Bilirubin [Mass/Vol] 0.6 mg/dL Normal 0.2-1.0 [facility] Comment on above: Performed By: #### C YOVANI SCHUMACHER, GRETTA #### [facility] [address] [place] [address] Dr. Kinjal Rivers Calcium [Mass/Vol] 9.1 mg/dL Normal 8.5-10.1 [facility] Comment on above: Performed By: #### C WINSOME LIPA, GRETTA #### [facility] [address] [place] [address] Dr. Kinjal Rivers Chloride [Moles/Vol] 105 mmol/L Normal 98-107 [facility] Comment on above: Performed By: #### C LANDON SCHUMACHERA, GRETTA #### [facility] [address] [place] [address] Dr. Kinjal Rivers CO2 [Moles/Vol] 25.3 mmol/L Normal 21.0-32.0 [facility] Comment on above: Performed By: #### C WINSOME LIPA, GRETTA #### [facility] [address] [place] [address] Dr. Kinjal Rivers Creatinine [Mass/Vol] 0.96 mg/dL Normal 0.55-1.02 [facility] Comment on above: Performed By: #### C LANDON SCHUMACHERA, GRETTA #### [facility] [address] [place] [address] Dr. Kinjal Rivers EGFR-AF PALAUAN >60 Normal >=60 [facility] Comment on above: Performed By: #### C WINSOME LIPA, GRETTA #### [facility] [address] [place] [address] Dr. Kinjal Rivers EGFR-NON AF PALAUAN >60 Normal >=60 [facility] Comment on above: Performed By: #### C WINSOME LIPA, GRETTA #### [facility] [address] [place] [address] Dr. Kinjal Rivers Globulin (S) [Mass/Vol] 3.6 g/dL Normal [facility] Comment on above: Performed By: #### C WINSOME LIPA, GRETTA #### [facility] [address] [address] [address] Kinjal Rivers Glucose [Mass/Vol] 93 mg/dL Normal 74-106 [facility] Comment on above: Performed By: #### C WINSOME LIPA, GRETTA #### [facility] [address] [address] [address] Kinjal Rivers Potassium [Moles/Vol] 3.7 mmol/L Normal 3.5-5.1 [facility] Comment on above: Performed By: #### C WINSOME LIPA, GRETTA #### [facility] [address] [address] [address] Kinjal Rivers Protein [Mass/Vol] 7.3 g/dL Normal 6.4-8.2 [facility] Comment on above: Performed By: #### C WINSOME LIPA, GRETTA #### [facility] [address] [place] [address] Dr. Kinjal Rivers Sodium [Moles/Vol] 140 mmol/L Normal 136-145 [facility] Comment on above: Performed By: #### C WINSOME LIPA, GRETTA #### [facility] [address] [address] [address] Kinjal Rivers Urea nitrogen [Mass/Vol] 9.0 mg/dL Normal 7.0-18.0 [facility] Comment on above: Performed By: #### C WINSOME LIPA, GRETTA #### [facility] [address] [address] [address] Kinjal Rivers Urea nitrogen/Creatinine [Mass ratio] 9.4 mg/mg Normal [facility] Comment on above: Performed By: #### C MP LIPA, GRETTA #### [facility] [address] [address] [address] Kinjal Rivers URINE MICROSCOPIC ONLYon BACTERIA TRACE Abnormal NONE SEEN [facility] Comment on above: Performed By: #### U MICRO, ERUR #### [facility] [address] [address] [address] Kinjal Rivers Bacteria identified Cx Nom (U) INDICATED Normal [facility] Comment on above: Performed By: #### U MICRO, ERUR #### [facility] [address] [address] [address] Kinjal Rivers CAST NONE SEEN Normal NONE SEEN [facility] Comment on above: Performed By: #### U MICRO, ERUR #### [facility] [address] [address] [address] Kinjal Rivers Crystals LM Nom (Urine sed) NONE SEEN Normal NONE SEEN [facility] Comment on above: Performed By: #### U MICRO, ERUR #### [facility] [address] [address] [address] Kinjal Rivers Epithelial cells LM Ql (Urine sed) FEW Abnormal NONE SEEN /RARE [facility] Comment on above: Performed By: #### U MICRO, ERUR #### [facility] [address] [place] [address] Dr. Kinjal Rivers MUCOUS NONE SEEN Normal NONE SEEN [facility] Comment on above: Performed By: #### U MICRO, ERUR #### [facility] [address] [place] [address] Dr. Kinjal Rivers RBC NONE SEEN Abnormal 0-2 [facility] Comment on above: Performed By: #### U MICRO, ERUR #### [facility] [address] [place] [address] Dr. Kinjal Rivers WBC 2-5 Abnormal NONE SEEN [facility] Comment on above: Performed By: #### U MICRO, ERUR #### [facility] [address] [place] [address] Dr. Kinjal Rivers Activated partial thrombopla stin time (aPTT) in platelet poor plasma by coagulation aOrdered By: Michael Cerda on 09-28-2022 aPTT Coag (PPP) [Time] 24.9 s 25.1-36.5 [facility] Automated erythrocytes count in urine sediment (number/area)Ordered By: Michael Cerda on 09-28-2022 RBC Auto (Urine sed) [#/Area] 0-1 [HPF] 0-4 [facility] Automated leukocytes count i n urine sediment (number/area)Ordered By: Michael Cerda on 09-28-2022 WBC Auto (Urine sed) [#/Area] 10-19 [HPF] 0-4 [facility] Basophils Auto (Bld) [#/Vol] Ordered By: Michael Cerda on 09-28-2022 Basophils (Bld) [#/Vol] 0.0 10*3/uL 0.0-0.2 [facility] Basophils/100 WBC Auto (Bld) Ordered By: Michael Cerda on 09-28-2022 Basophils/100 WBC (Bld) 0.5 % . [facility] Bilirubin Test strip Ql (U)O rdered By: Michael Cerda on 09-28-2022 Bilirubin Ql (U) Negative Negative [facility] COVID CepheidOrdered By: Janee Cerda on 09-28-2022 SARS-CoV-2 (COVID-19) Ab IA Ql Negative Negative [facility] Comment on above: This is a duplicate [employer] Xpress CoV-2/Flu/RSV Plus RNA by RT-PCR result to be used for statistical tracking purpose only. SARS-CoV-2 (COVID-19) RNA CRISTINA+probe Ql (Unsp spec) [facility] Calcium [Mass/volume] in Ser um or PlasmaOrdered By: Michael Cerda on 09-28-2022 Calcium [Mass/Vol] 9.3 mg/dL 8.6-10.3 [facility] Carbon dioxide, total [Moles /volume] in Serum or PlasmaOrdered By: Michael Cerda on 09-28-2022 CO2 [Moles/Vol] 23.7 mmol/L 21.0-31.0 [facility] Chloride [Moles/volume] in S mac or PlasmaOrdered By: Michael Cerda on 09-28-2022 Chloride [Moles/Vol] 105 mmol/L 98-107 [facility] Color Auto (U)Ordered By: Lorene Cerda on 09-28-2022 Color (U) Yellow Yellow [facility] Creatine kinase [Enzymatic a ctivity/volume] in Serum or PlasmaOrdered By: Michael Cerda on 09-28-2022 CK [Catalytic activity/Vol] 60 U/L 30-223 [facility] Creatinine [Mass/volume] in Serum or PlasmaOrdered By: Michael Cerda on 09-28-2022 Creatinine [Mass/Vol] 0.81 mg/dL 0.60-1.20 [facility] Eosinophils Auto (Bld) [#/Vo l]Ordered By: Michael Cerda on 09-28-2022 Eosinophils (Bld) [#/Vol] 0.0 10*3/uL 0.0-0.45 [facility] Eosinophils/100 WBC Auto (Bl d)Ordered By: Michael Cerda on 09-28-2022 Eosinophils/100 WBC (Bld) 0.2 % . [facility] Erythrocyte distribution wid th Auto (RBC) [Ratio]Ordered By: Michael Cerda on 09-28-2022 Erythrocyte distribution width (RBC) [Ratio] 13.5 % 11.9-15.3 [facility] Glucose [Mass/volume] in Ser um or PlasmaOrdered By: Michael Cerda on 09-28-2022 Glucose [Mass/Vol] 103 mg/dL 70-100 [facility] Comment on above: ADA recommended refe rence rangeRandom Glucose Reference Range is dependent on time and content of last meal. Glucose of more than 200 mg/dL in a nonstressed, ambulatory subject supports the diagnosis of Diabetes Mellitus. Hematocrit Auto (Bld) [Volum e fraction]Ordered By: Michael Cerda on 09-28-2022 Hematocrit (Bld) [Volume fraction] 38.9 % 34.0-46.4 [facility] Hemoglobin [Mass/volume] in BloodOrdered By: Michael Cerda on 09-28-2022 Hemoglobin (Bld) [Mass/Vol] 13.2 g/dL 11.8-15.4 [facility] Ketones Auto test strip (U) [Mass/Vol]Ordered By: Michael Cerda on 09-28-2022 Ketones (U) [Mass/Vol] Negative Negative [facility] - CoagulationOrde red By: Michael Cerda on 09-28-2022 PT Coag (PPP) [Time] 12.0 s 9.0-12.9 [facility] - UrinalysisOrder ed By: Michael Cerda on 09-28-2022 Hyaline casts LM Ql (Urine sed) 0-8 [LPF] 0-8 [facility] Leukocytes [#/volume] correc nneka for nucleated erythrocytes in Blood by Automated counOrdered By: Michael Cerda on 09-28-2022 WBC corrected for nucl RBC Auto (Bld) [#/Vol] 5.1 10*3/uL 3.8-11.6 [facility] Lymphocytes Auto (Bld) [#/Vo l]Ordered By: Michael Cerda on 09-28-2022 Lymphocytes (Bld) [#/Vol] 0.6 10*3/uL 1.00-4.8 [facility] Lymphocytes/100 WBC Auto (Bl d)Ordered By: Michael Cerda on 09-28-2022 Lymphocytes/100 WBC (Bld) 11.0 % . [facility] MCH Auto (RBC) [Entitic mass ]Ordered By: Michael Cerda on 09-28-2022 MCH (RBC) [Entitic mass] 33.0 pg 24.7-34.3 [facility] MCHC Auto (RBC) [Mass/Vol]Or dered By: Michael Cerda on 09-28-2022 MCHC (RBC) [Mass/Vol] 34.0 g/dL 32.0-35.0 [facility] MCV Auto (RBC) [Entitic vol] Ordered By: Michael Cerda on 09-28-2022 MCV (RBC) [Entitic vol] 97.0 fL 80-100 [facility] Monocyte distribution width [Entitic volume] in Blood by AutomatedOrdered By: Michael Cerda on 09-28-2022 Monocyte distribution width Auto (Bld) [Entitic vol] 24.75 % 0.00-20.00 [facility] Comment on above: For adults in ED, MD W > 20.0 may be associated with a higher risk of sepsis during the first 12 hrs of hospital admission Monocytes Auto (Bld) [#/Vol] Ordered By: Michael Cerda on 09-28-2022 Monocytes (Bld) [#/Vol] 0.3 10*3/uL 0.0-0.8 [facility] Monocytes/100 WBC Auto (Bld) Ordered By: Michael Cerda on 09-28-2022 Monocytes/100 WBC (Bld) 5.8 % . [facility] Natriuretic peptide B [Mass/ Vol]Ordered By: Michael Cerda on 09-28-2022 Natriuretic peptide B (Bld) [Mass/Vol] 27.0 pg/mL 5-100 [facility] Neutrophils Auto (Bld) [#/Vo l]Ordered By: Michael Cerda on 09-28-2022 Neutrophils (Bld) [#/Vol] 4.2 10*3/uL 1.8-7.7 [facility] Neutrophils/100 WBC Auto (Bl d)Ordered By: Michael Cerda on 09-28-2022 Neutrophils/100 WBC (Bld) 82.5 % . [facility] Nitrite Test strip Ql (U)Ord ered By: Michael Cerda on 09-28-2022 Nitrite Ql (U) Negative Negative [facility] No Panel InformationOrdered By: Michael Cerda on 09-28-2022 D-Dimer Quantitative (PE/DVT) 560 ng/mL 0-243 [facility] Comment on above: The reference range [...] GFR (CKD-EPI) > 60.0 mL/Min [facility] Creatinine Clearance (Chem 119.50 [facility] Nucleated erythrocytes [Pres ence] in Blood by Automated countOrdered By: Michael Cerda on 09-28-2022 Nucleated RBC Auto Ql (Bld) 0.1 /100{WBC} 0-0.5 [facility] Platelet mean volume Auto (B ld) [Entitic vol]Ordered By: Michael Cerda on 09-28-2022 Platelet mean volume (Bld) [Entitic vol] 7.4 fL 6.3-10.7 [facility] Platelet poor plasma interna tional normalized ratio (INR) by coagulation assay (relatOrdered By: Michael Cerda on 09-28-2022 INR Coag (PPP) [Relative time] 1.0 {INR} [facility] Comment on above: INR Therapeutic Rang [...] (Bld) [#/Vol] 197 10*3/uL 150-450 [facility] Potassium [Moles/volume] in Serum or PlasmaOrdered By: Michael Cerda on 09-28-2022 Potassium [Moles/Vol] 3.7 mmol/L 3.5-5.1 [facility] Protein Auto test strip (U) [Mass/Vol]Ordered By: Michael Cerda on 09-28-2022 Protein (U) [Mass/Vol] Negative Negative [facility] RBC Auto (Bld) [#/Vol]Ordere d By: Michael Cerda on 09-28-2022 RBC (Bld) [#/Vol] 4.01 10*6/uL 3.60-5.00 [facility] Serum or plasma anion gap de terminationOrdered By: Michael Cerda on 09-28-2022 Anion gap [Moles/Vol] 13.0 mmol/L 6.0-15.0 [facility] Sodium [Moles/volume] in Ser um or PlasmaOrdered By: Michael Cerda on 09-28-2022 Sodium [Moles/Vol] 138 mmol/L 136-145 [facility] Specific gravity Auto test s trip (U) [Rel density]Ordered By: Michael Cerda on 09-28-2022 Specific gravity (U) [Rel density] 1.015 1.001-1.030 [facility] Squamous epithelial cells de tection in urine sediment by light microscopyOrdered By: Michael Cerda on 09-28-2022 Epithelial cells.squamous LM Ql (Urine sed) 3-4 [HPF] 0-2 [facility] Troponin I.cardiac [Mass/vol ume] in Serum or Plasma by Detection limit <= 0.01 ng/Ordered By: Michael Cerda on 09-28-2022 Troponin I.cardiac DL <= 0.01 ng/mL [Mass/Vol] 5.1 pg/mL 0.0-15.0 [facility] Urea nitrogen [Mass/volume] in Serum or PlasmaOrdered By: Michael Cerda on 09-28-2022 Urea nitrogen [Mass/Vol] 11 mg/dL 7-25 [facility] Urine bacteria detection by automated methodOrdered By: Michael Cerda on 09-28-2022 Bacteria Auto Ql (U) None seen None Seen [facility] Urine clarity by refractomet ry automatedOrdered By: Michael Cerda on 09-28-2022 Clarity Refractometry automated (U) Clear Clear [facility] Urine culture routineOrdered By: Michael Cerda on 09-28-2022 Bacteria identified Cx Nom (U) 2 Days [facility] Urine glucose measurement by automated test strip (mass/volume)Ordered By: Michael Cerda on 09-28-2022 Glucose Auto test strip (U) [Mass/Vol] Normal mg/dL Normal [facility] Urine hemoglobin detection b y automated test stripOrdered By: Michael Cerda on 09-28-2022 Hemoglobin Auto test strip Ql (U) Negative Negative [facility] Urine leukocyte esterase det ection by automated test stripOrdered By: Michael Cerda on 09-28-2022 Leukocyte esterase Auto test strip Ql (U) 3+ Negative [facility] Urobilinogen Auto test strip (U) [Mass/Vol]Ordered By: Michael Cerda on 09-28-2022 Urobilinogen (U) [Mass/Vol] Normal mg/dL Normal [facility] WBC Auto (Bld) [#/Vol]Ordere d By: Michael Cerda on 09-28-2022 WBC (Bld) [#/Vol] 5.1 10*3/uL 3.8-11.6 [facility] pH Auto test strip (U)Ordere d By: Michael Cerda on 09-28-2022 pH (U) 6.5 [pH] 5.0-9.0 [facility] Cholesterol [Mass/volume] in Serum or PlasmaOrdered By: Nimesh Cerda on 09-04-2022 Cholesterol [Mass/Vol] 213 mg/dL 140-200 [facility] Comment on above: Chol less than 200 m g/dl low riskChol 201-239 mg/dl borderline riskChol 240 mg/dl and greater high risk Cholesterol in LDL Calc [Mas s/Vol]Ordered By: Nimesh Cerda on 09-04-2022 Cholesterol in LDL [Mass/Vol] 126 mg/dL 0-100 [facility] Comment on above: LDL ATP III CLASSIFI CATIONLDL less than 100 mg/dL OptimalLDL 100-129 mg/dL Near or above optimalLDL 130-159 mg/dL Borderline highLDL 160-189 mg/dL HighLDL greater than 189 mg/dL Very high Cholesterol in VLDL Calc [Ma ss/Vol]Ordered By: Nimesh Cerda on 09-04-2022 Cholesterol in VLDL [Mass/Vol] 19 mg/dL [facility] Serum or plasma high density lipoprotein (HDL) cholesterol measurementOrdered By: Nimesh Cerda on 09-04-2022 Cholesterol in HDL [Mass/Vol] 67 mg/dL 35-85 [facility] Comment on above: HDL CHOL ATP-III CLA SSIFICATION Cardiovascular RiskHDL > or equal to 60 mg/dL LOWHDL < 40 mg/dL HIGH Serum or plasma total choles terol/high density lipoprotein (HDL) cholesterol mass ratOrdered By: Nimesh Cerda on 09-04-2022 Cholesterol.total/Chol esterol in HDL [Mass ratio] 3.2 {ratio} <5.0 [facility] Thyrotropin [Units/volume] i n Serum or PlasmaOrdered By: Nimesh Cerda on 09-04-2022 TSH Qn 1.74 m[IU]/L 0.45-5.33 [facility] Triglyceride [Mass/volume] i n Serum or PlasmaOrdered By: Nimesh Cerda on 09-04-2022 Triglyceride [Mass/Vol] 98 mg/dL 0-149 [facility] Comment on above: TRIG ATP III CLASSIF ICATIONTRIG less than 150 mg/dL NormalTRIG 150-199 mg/dL Borderline highTRIG 200-500 mg/dL High TRIG greater than 500 mg/dL Very highStandard traceable to the Center for Disease Conrtrol and Prevention (CDC) test method. Vitamin D+Metabolites [Mass/ volume] in Serum or PlasmaOrdered By: Nimesh Cerda on 09-04-2022 Vitamin D+Metabolites [Mass/Vol] 31.0 ng/mL 30-100 [facility] Comment on above: VITAMIN D STATUS [...] [Catalytic activity/Vol] 26 U/L 7-52 [facility] Albumin [Mass/volume] in Ser um or Plasma by Bromocresol green (BCG) dye binding methoOrdered By: Raffaele Ellsworth on 09-03-2022 Albumin BCG dye [Mass/Vol] 4.1 g/dL 3.5-5.7 [facility] Alkaline phosphatase [Enzyma tic activity/volume] in Serum or PlasmaOrdered By: Raffaele Ellsworth on 09-03-2022 ALP [Catalytic activity/Vol] 77 U/L 34-104 [facility] Amphetamine Screen Ql (U)Ord ered By: Raffaele Ellsworth on 09-03-2022 Amphetamines Ql (U) Negative Negative [facility] Aspartate aminotransferase [ Enzymatic activity/volume] in Serum or PlasmaOrdered By: Raffaele Ellsworth on 09-03-2022 AST [Catalytic activity/Vol] 29 U/L 13-39 [facility] Automated erythrocytes count in urine sediment (number/area)Ordered By: Raffaele Ellsworth on 09-03-2022 RBC Auto (Urine sed) [#/Area] 5-9 [HPF] 0-4 [facility] Automated leukocytes count i n urine sediment (number/area)Ordered By: Raffaele Ellsworth on 09-03-2022 WBC Auto (Urine sed) [#/Area] 10-19 [HPF] 0-4 [facility] Barbiturates [Presence] in U rine by Screen methodOrdered By: Raffaele Ellsworth on 09-03-2022 Barbiturates Screen Ql (U) Negative Negative [facility] Basophils Auto (Bld) [#/Vol] Ordered By: Raffaele Ellsworth on 09-03-2022 Basophils (Bld) [#/Vol] 0.0 10*3/uL 0.0-0.2 [facility] Basophils/100 WBC Auto (Bld) Ordered By: Raffaele Ellsworth on 09-03-2022 Basophils/100 WBC (Bld) 0.6 % . [facility] Benzodiazepines Screen Ql (U )Ordered By: Raffaele Ellsworth on 09-03-2022 Benzodiazepines Ql (U) Negative Negative [facility] Benzoylecgonine [Presence] i n Urine by Screen methodOrdered By: Raffaele Ellsworth on 09-03-2022 Benzoylecgonine Screen Ql (U) Negative Negative [facility] Bilirubin Test strip Ql (U)O rdered By: Raffaele Ellsworth on 09-03-2022 Bilirubin Ql (U) Negative Negative [facility] Bilirubin.total [Mass/volume ] in Serum or PlasmaOrdered By: Raffaele Ellsworth on 09-03-2022 Bilirubin [Mass/Vol] 0.4 mg/dL 0.3-1.0 [facility] Calcium [Mass/volume] in Ser um or PlasmaOrdered By: Raffaele Ellsworth on 09-03-2022 Calcium [Mass/Vol] 9.6 mg/dL 8.6-10.3 [facility] Cannabinoids [Presence] in U rine by Screen methodOrdered By: Raffaele Ellsworth on 09-03-2022 Cannabinoids Screen Ql (U) Negative Negative [facility] Comment on above: These are unconfirme [...] on 09-03-2022 Chloride [Moles/Vol] 107 mmol/L 98-107 [facility] Color Auto (U)Ordered By: Kapil Ellsworth on 09-03-2022 Color (U) Yellow Yellow [facility] Creatinine [Mass/volume] in Serum or PlasmaOrdered By: Raffaele Ellsworth on 09-03-2022 Creatinine [Mass/Vol] 0.76 mg/dL 0.60-1.20 [facility] Eosinophils Auto (Bld) [#/Vo l]Ordered By: Raffaele Ellsworth on 09-03-2022 Eosinophils (Bld) [#/Vol] 0.1 10*3/uL 0.0-0.45 [facility] Eosinophils/100 WBC Auto (Bl d)Ordered By: Raffaele Ellsworth on 09-03-2022 Eosinophils/100 WBC (Bld) 2.0 % . [facility] Erythrocyte distribution wid th Auto (RBC) [Ratio]Ordered By: Raffaele Ellsworth on 09-03-2022 Erythrocyte distribution width (RBC) [Ratio] 14.8 % 11.9-15.3 [facility] Ethanol [Mass/volume] in Ser um or PlasmaOrdered By: Raffaele Ellsworth on 09-03-2022 Ethanol [Mass/Vol] mg/dL [facility] Ethanol [Mass/Vol] TNP [facility] Comment on above: Test not performed Globulin Calc (S) [Mass/Vol] Ordered By: Raffaele Ellsworth on 09-03-2022 Globulin (S) [Mass/Vol] 2.9 g/dL [facility] Glucose [Mass/volume] in Ser um or PlasmaOrdered By: Raffaele Ellsworth on 09-03-2022 Glucose [Mass/Vol] 79 mg/dL 74-109 [facility] Comment on above: ADA recommended refe rence rangeRandom Glucose Reference Range is dependent on time and content of last meal. Glucose of more than 200 mg/dL in a nonstressed, ambulatory subject supports the diagnosis of Diabetes Mellitus. Hematocrit Auto (Bld) [Volum e fraction]Ordered By: Raffaele Ellsworth on 09-03-2022 Hematocrit (Bld) [Volume fraction] 38.3 % 34.0-46.4 [facility] Hemoglobin [Mass/volume] in BloodOrdered By: Raffaele Ellsworth on 09-03-2022 Hemoglobin (Bld) [Mass/Vol] 12.8 g/dL 11.8-15.4 [facility] Ketones Auto test strip (U) [Mass/Vol]Ordered By: Raffaele Ellsworth on 09-03-2022 Ketones (U) [Mass/Vol] Trace Negative [facility] Laboratory - Chemistry and C hemistry - challengeOrdered By: Raffaele Ellsworth on 09-03-2022 GFR/1.73 sq M.predicted MDRD (S/P/Bld) [Vol rate/Area] mL/min/{1.73_m2} [facility] - UrinalysisOrder ed By: Raffaele Ellsworth on 09-03-2022 Hyaline casts LM Ql (Urine sed) 0-8 [LPF] 0-8 [facility] Leukocytes [#/volume] correc nneka for nucleated erythrocytes in Blood by Automated counOrdered By: Raffaele Ellsworth on 09-03-2022 WBC corrected for nucl RBC Auto (Bld) [#/Vol] 6.5 10*3/uL 3.8-11.6 [facility] Lymphocytes Auto (Bld) [#/Vo l]Ordered By: Raffaele Ellsworth on 09-03-2022 Lymphocytes (Bld) [#/Vol] 1.8 10*3/uL 1.00-4.8 [facility] Lymphocytes/100 WBC Auto (Bl d)Ordered By: Raffaele Ellsworth on 09-03-2022 Lymphocytes/100 WBC (Bld) 28.2 % . [facility] MCH Auto (RBC) [Entitic mass ]Ordered By: Raffaele Ellsworth on 09-03-2022 MCH (RBC) [Entitic mass] 32.7 pg 24.7-34.3 [facility] MCHC Auto (RBC) [Mass/Vol]Or dered By: Raffaele Ellsworth on 09-03-2022 MCHC (RBC) [Mass/Vol] 33.4 g/dL 32.0-35.[address] [facility] MCV Auto (RBC) [Entitic vol] Ordered By: Raffaele Ellsworth on 09-03-2022 MCV (RBC) [Entitic vol] 97.9 fL 80-100 [facility] Monocyte distribution width [Entitic volume] in Blood by AutomatedOrdered By: Raffaele Ellsworth on 09-03-2022 Monocyte distribution width Auto (Bld) [Entitic vol] 18.00 % 0.00-20.00 [facility] Monocytes Auto (Bld) [#/Vol] Ordered By: Raffaele Ellsworth on 09-03-2022 Monocytes (Bld) [#/Vol] 0.5 10*3/uL 0.0-0.8 [facility] Monocytes/100 WBC Auto (Bld) Ordered By: Raffaele Ellsworth on 09-03-2022 Monocytes/100 WBC (Bld) 7.1 % . [facility] Neutrophils Auto (Bld) [#/Vo l]Ordered By: Raffaele Ellsworth on 09-03-2022 Neutrophils (Bld) [#/Vol] 4.0 10*3/uL 1.8-7.7 [facility] Neutrophils/100 WBC Auto (Bl d)Ordered By: Raffaele Ellsworth on 09-03-2022 Neutrophils/100 WBC (Bld) 62.1 % . [facility] Nitrite Test strip Ql (U)Ord ered By: Raffaele Ellsworth on 09-03-2022 Nitrite Ql (U) Negative Negative [facility] No Panel InformationOrdered By: Raffaele Ellsworth on 09-03-2022 Pharmacy Creatinine Clearance (Chem 126.74 [facility] Nucleated erythrocytes [Pres ence] in Blood by Automated countOrdered By: Raffaele Ellsworth on 09-03-2022 Nucleated RBC Auto Ql (Bld) 0.0 /100{WBC} 0-0.5 [facility] Opiates [Presence] in Urine by Screen methodOrdered By: Raffaele Ellsworth on 09-03-2022 Opiates Screen Ql (U) Negative Negative [facility] Phencyclidine Screen Ql (U)O rdered By: Raffaele Ellsworth on 09-03-2022 Phencyclidine Ql (U) Negative Negative [facility] Platelet mean volume Auto (B ld) [Entitic vol]Ordered By: Raffaele Ellsworth on 09-03-2022 Platelet mean volume (Bld) [Entitic vol] 7.2 fL 6.3-10.7 [facility] Platelets Auto (Bld) [#/Vol] Ordered By: Raffaele Ellsworth on 09-03-2022 Platelets (Bld) [#/Vol] 241 10*3/uL 150-450 [facility] Potassium [Moles/volume] in Serum or PlasmaOrdered By: Raffaele Ellsworth on 09-03-2022 Potassium [Moles/Vol] 4.0 mmol/L 3.5-5.1 [facility] Protein Auto test strip (U) [Mass/Vol]Ordered By: Raffaele Ellsworth on 09-03-2022 Protein (U) [Mass/Vol] Negative Negative [facility] Protein [Mass/volume] in Ser um or PlasmaOrdered By: Raffaele Ellsworth on 09-03-2022 Protein [Mass/Vol] 7.0 g/dL 6.4-8.9 [facility] RBC Auto (Bld) [#/Vol]Ordere d By: Raffaele Ellsworth on 09-03-2022 RBC (Bld) [#/Vol] 3.91 10*6/uL 3.60-5.00 [facility] Serum or plasma albumin/glob ulin mass ratioOrdered By: Raffaele Ellsworth on 09-03-2022 Albumin/Globulin [Mass ratio] 1.4 {ratio} [facility] Serum or plasma anion gap de terminationOrdered By: Raffaele Ellsworth on 09-03-2022 Anion gap [Moles/Vol] 12.2 mmol/L 6.0-15.0 [facility] Sodium [Moles/volume] in Ser um or PlasmaOrdered By: Raffaele Ellsworth on 09-03-2022 Sodium [Moles/Vol] 139 mmol/L 136-145 [facility] Specific gravity Auto test s trip (U) [Rel density]Ordered By: Raffaele Ellsworth on 09-03-2022 Specific gravity (U) [Rel density] 1.020 1.001-1.030 [facility] Squamous epithelial cells de tection in urine sediment by light microscopyOrdered By: Raffaele Ellsworth on 09-03-2022 Epithelial cells.squamous LM Ql (Urine sed) 5-9 [HPF] 0-2 [facility] Urea nitrogen [Mass/volume] in Serum or PlasmaOrdered By: Raffaele Ellsworth on 09-03-2022 Urea nitrogen [Mass/Vol] 9 mg/dL 7-25 [facility] Urine bacteria detection by automated methodOrdered By: Raffaele Ellsworth on 09-03-2022 Bacteria Auto Ql (U) None seen None Seen [facility] Urine clarity by refractomet ry automatedOrdered By: Raffaele Ellsworth on 09-03-2022 Clarity Refractometry automated (U) Clear Clear [facility] Urine culture routineOrdered By: Raffaele Ellsworth on 09-03-2022 Bacteria identified Cx Nom (U) 2 Days [facility] Urine glucose measurement by automated test strip (mass/volume)Ordered By: Raffaele Ellsworth on 09-03-2022 Glucose Auto test strip (U) [Mass/Vol] Normal mg/dL Normal [facility] Urine hemoglobin detection b y automated test stripOrdered By: Raffaele Ellsworth on 09-03-2022 Hemoglobin Auto test strip Ql (U) Trace Negative [facility] Urine leukocyte esterase det ection by automated test stripOrdered By: Raffaele Ellsworth on 09-03-2022 Leukocyte esterase Auto test strip Ql (U) 2+ Negative [facility] Urobilinogen Auto test strip (U) [Mass/Vol]Ordered By: Raffaele Ellsworth on 09-03-2022 Urobilinogen (U) [Mass/Vol] Normal mg/dL Normal [facility] WBC Auto (Bld) [#/Vol]Ordere d By: Raffaele Ellsworth on 09-03-2022 WBC (Bld) [#/Vol] 6.5 10*3/uL 3.8-11.6 [facility] pH Auto test strip (U)Ordere d By: Raffaele Ellsworth on 09-03-2022 pH (U) 5.0 [pH] 5.0-9.0 [facility] Basophils Auto (Bld) [#/Vol] Ordered By: Urbano Palma on 08-13-2022 Basophils (Bld) [#/Vol] 0.0 10*3/uL 0.0-0.2 [facility] Basophils/100 WBC Auto (Bld) Ordered By: Urbano Palma on 08-13-2022 Basophils/100 WBC (Bld) 0.3 % . [facility] Eosinophils Auto (Bld) [#/Vo l]Ordered By: Urbano Palma on 08-13-2022 Eosinophils (Bld) [#/Vol] 0.0 10*3/uL 0.0-0.45 [facility] Eosinophils/100 WBC Auto (Bl d)Ordered By: Urbano Palma on 08-13-2022 Eosinophils/100 WBC (Bld) 0.4 % . [facility] Erythrocyte distribution wid th Auto (RBC) [Ratio]Ordered By: Urbano Palma on 08-13-2022 Erythrocyte distribution width (RBC) [Ratio] 17.2 % 11.9-15.3 [facility] Hematocrit Auto (Bld) [Volum e fraction]Ordered By: Urbano Palma on 08-13-2022 Hematocrit (Bld) [Volume fraction] 30.3 % 34.0-46.4 [facility] Hemoglobin [Mass/volume] in BloodOrdered By: Urbano Palma on 08-13-2022 Hemoglobin (Bld) [Mass/Vol] 10.2 g/dL 11.8-15.4 [facility] Leukocytes [#/volume] correc nneka for nucleated erythrocytes in Blood by Automated counOrdered By: Urbano Palma on 08-13-2022 WBC corrected for nucl RBC Auto (Bld) [#/Vol] 10.0 10*3/uL 3.8-11.6 [facility] Lymphocytes Auto (Bld) [#/Vo l]Ordered By: Urbano Palma on 08-13-2022 Lymphocytes (Bld) [#/Vol] 1.7 10*3/uL 1.00-4.8 [facility] Lymphocytes/100 WBC Auto (Bl d)Ordered By: Urbano Palma on 08-13-2022 Lymphocytes/100 WBC (Bld) 16.5 % . [facility] MCH Auto (RBC) [Entitic mass ]Ordered By: Urbano Palma on 08-13-2022 MCH (RBC) [Entitic mass] 32.9 pg 24.7-34.3 [facility] MCHC Auto (RBC) [Mass/Vol]Or dered By: Urbano Palma on 08-13-2022 MCHC (RBC) [Mass/Vol] 33.6 g/dL 32.0-35.0 [facility] MCV Auto (RBC) [Entitic vol] Ordered By: Urbano Palma on 08-13-2022 MCV (RBC) [Entitic vol] 97.8 fL 80-100 [facility] Monocytes Auto (Bld) [#/Vol] Ordered By: Urbano Palma on 08-13-2022 Monocytes (Bld) [#/Vol] 0.5 10*3/uL 0.0-0.8 [facility] Monocytes/100 WBC Auto (Bld) Ordered By: Urbano Palma on 08-13-2022 Monocytes/100 WBC (Bld) 5.4 % . [facility] Neutrophils Auto (Bld) [#/Vo l]Ordered By: Urbano Palma on 08-13-2022 Neutrophils (Bld) [#/Vol] 7.7 10*3/uL 1.8-7.7 [facility] Neutrophils/100 WBC Auto (Bl d)Ordered By: Urbano Palma on 08-13-2022 Neutrophils/100 WBC (Bld) 77.4 % . [facility] Nucleated erythrocytes [Pres ence] in Blood by Automated countOrdered By: Urbano Palma on 08-13-2022 Nucleated RBC Auto Ql (Bld) 0.0 /100{WBC} 0-0.5 [facility] Platelet mean volume Auto (B ld) [Entitic vol]Ordered By: Urbano Palma on 08-13-2022 Platelet mean volume (Bld) [Entitic vol] 8.2 fL 6.3-10.7 [facility] Platelets Auto (Bld) [#/Vol] Ordered By: Urbano Palma on 08-13-2022 Platelets (Bld) [#/Vol] 125 10*3/uL 150-450 [facility] RBC Auto (Bld) [#/Vol]Ordere d By: Urbano Palma on 08-13-2022 RBC (Bld) [#/Vol] 3.10 10*6/uL 3.60-5.00 [facility] WBC Auto (Bld) [#/Vol]Ordere d By: Urbano Palma on 08-13-2022 WBC (Bld) [#/Vol] 10.0 10*3/uL 3.8-11.6 [facility] Glucose Glucometer (dC) [M ass/Vol]Ordered By: Urbano Palma on 08-12-2022 Glucose [Mass/Vol] 82 mg/dL [facility] Comment on above: Random Glucose Refer ence Range is dependent on time and content of last meal. Glucose of more than 200 mg/dL in a nonstressed, ambulatory subject supports the diagnosis of Diabetes Mellitus. No Panel InformationOrdered By: Urbano Palma on 08-12-2022 Bedside Glucose Comment Glu2: cleaned meter [facility] Amphetamine Screen Ql (U)Ord ered By: Urbano Palma on 08-11-2022 Amphetamines Ql (U) Negative Negative [facility] Automated erythrocytes count in urine sediment (number/area)Ordered By: Urbano Palma on 08-11-2022 RBC Auto (Urine sed) [#/Area] 0-1 [HPF] 0-4 [facility] Automated leukocytes count i n urine sediment (number/area)Ordered By: Urbano Palma on 08-11-2022 WBC Auto (Urine sed) [#/Area] 50-100 [HPF] 0-4 [facility] Automated urine hyaline cast s count (number/volume)Ordered By: Urbano Palma on 08-11-2022 Hyaline casts Auto (U) [#/Vol] None seen [LPF] 0-1 [facility] Barbiturates [Presence] in U rineOrdered By: Urbano Palma on 08-11-2022 Barbiturates Ql (U) Negative Negative [facility] Benzodiazepines [Presence] i n UrineOrdered By: Urbano Palma on 08-11-2022 Benzodiazepines Ql (U) Negative Negative [facility] Bilirubin Test strip Ql (U)O rdered By: Urbano Palma on 08-11-2022 Bilirubin Ql (U) Negative Negative [facility] Casts typing in urine sedime nt by light microscopyOrdered By: Urbano Palma on 08-11-2022 Casts LM Nom (Urine sed) None seen [LPF] None Seen [facility] Color Auto (U)Ordered By: Mago Palma on 08-11-2022 Color (U) Yellow Yellow [facility] Glucose [Mass/volume] in Ser um or PlasmaOrdered By: Urbano Palma on 08-11-2022 Glucose [Mass/Vol] 69 mg/dL 70-100 [facility] Comment on above: ADA recommended refe rence rangeRandom Glucose Reference Range is dependent on time and content of last meal. Glucose of more than 200 mg/dL in a nonstressed, ambulatory subject supports the diagnosis of Diabetes Mellitus. Ketones Auto test strip (U) [Mass/Vol]Ordered By: Urbano Palma on 08-11-2022 Ketones (U) [Mass/Vol] Trace Negative [facility] Laboratory - Drug toxicology Ordered By: Urbano Palma on 08-11-2022 Opiates Ql (U) Negative Negative [facility] Nitrite Test strip Ql (U)Ord ered By: Urbano Palma on 08-11-2022 Nitrite Ql (U) Negative Negative [facility] Phencyclidine Screen Ql (U)O rdered By: Urbano Palma on 08-11-2022 Phencyclidine Ql (U) Negative Negative [facility] Comment on above: These are unconfirme d results and should not be used for legal purposes. Drug Cut-Off Concentration: AMPH 1000 ng/mL BOO 200 ng/mL HELGA 200 ng/mL COCM 300 ng/mL OP 300 ng/mL PCP 25 ng/mL Protein Auto test strip (U) [Mass/Vol]Ordered By: Urbano Palma on 08-11-2022 Protein (U) [Mass/Vol] 30 mg/dL Negative [facility] Reagin Ab [Presence] in Seru m by RPROrdered By: Urbano Palma on 08-11-2022 Reagin Ab RPR Ql (S) Non-Reactive Non Reactive [facility] Comment on above: Performed at: [address] [id number] Director: Prabhakar Warren PhD, Phone: [phone] Specific gravity Auto test s trip (U) [Rel density]Ordered By: Urbano Palma on 08-11-2022 Specific gravity (U) [Rel density] 1.021 1.001-1.030 [facility] Squamous epithelial cells de tection in urine sediment by light microscopyOrdered By: Urbano Palma on 08-11-2022 Epithelial cells.squamous LM Ql (Urine sed) 5-9 [HPF] 0-2 [facility] Urine bacteria detection by automated methodOrdered By: Urbano Palma on 08-11-2022 Bacteria Auto Ql (U) 1+ None Seen [facility] Urine clarity by refractomet ry automatedOrdered By: Urbano Palma on 08-11-2022 Clarity Refractometry automated (U) Cloudy Clear [facility] Urine cocaine detectionOrder ed By: Urbano Palma on 08-11-2022 Cocaine Ql (U) Negative Negative [facility] Urine culture routineOrdered By: Urbano Palma on 08-11-2022 Bacteria identified Cx Nom (U) Cinthya albicans [facility] Urine glucose measurement by automated test strip (mass/volume)Ordered By: Urbano Palma on 08-11-2022 Glucose Auto test strip (U) [Mass/Vol] Normal mg/dL Normal [facility] Urine hemoglobin detection b y automated test stripOrdered By: Urbano Palma on 08-11-2022 Hemoglobin Auto test strip Ql (U) Negative Negative [facility] Urine leukocyte esterase det ection by automated test stripOrdered By: Urbano Palma on 08-11-2022 Leukocyte esterase Auto test strip Ql (U) 3+ Negative [facility] Urobilinogen Auto test strip (U) [Mass/Vol]Ordered By: Urbano Palma on 08-11-2022 Urobilinogen (U) [Mass/Vol] Normal mg/dL Normal [facility] pH Auto test strip (U)Ordere d By: Urbano Palma on 08-11-2022 pH (U) 5.5 [pH] 5.0-9.0 [facility] Albumin [Mass/volume] in Ser um or PlasmaOrdered By: CANDICE Cody on 08-02-2022 Albumin [Mass/Vol] 2.7 g/dL 3.2-5.5 [facility] Basophils Auto (Bld) [#/Vol] Ordered By: CANDICE Cody on 08-02-2022 Basophils (Bld) [#/Vol] 0.0 10*3/uL 0.0-0.2 [facility] Basophils/100 WBC Auto (Bld) Ordered By: CANDICE Cody on 08-02-2022 Basophils/100 WBC (Bld) 0.3 % . [facility] Creatinine and Glomerular fi ltration rate.predicted panel (S/P/Bld)Ordered By: CANDICE Cody on 08-02-2022 Creatinine [Mass/Vol] 0.64 mg/dL 0.44-1.03 [facility] Eosinophils Auto (Bld) [#/Vo l]Ordered By: CANDICE Cody on 08-02-2022 Eosinophils (Bld) [#/Vol] 0.1 10*3/uL 0.0-0.45 [facility] Eosinophils/100 WBC Auto (Bl d)Ordered By: CANDICE Cody on 08-02-2022 Eosinophils/100 WBC (Bld) 0.8 % . [facility] Erythrocyte distribution wid th Auto (RBC) [Ratio]Ordered By: CANDICE Cody on 08-02-2022 Erythrocyte distribution width (RBC) [Ratio] 17.8 % 11.9-15.3 [facility] Estimated glomerular filtrat ion rate (GFR) non- AmericanOrdered By: JASON Cody on 08-02-2022 GFR/1.73 sq M.predicted among non-blacks MDRD (S/P/Bld) [Vol rate/Area] > 60 mL/Min [facility] Globulin Calc (S) [Mass/Vol] Ordered By: CANDICE Cody on 08-02-2022 Globulin (S) [Mass/Vol] 3.1 g/dL [facility] Hematocrit Auto (Bld) [Volum e fraction]Ordered By: CANDICE Cody on 08-02-2022 Hematocrit (Bld) [Volume fraction] 34.8 % 34.0-46.4 [facility] Hemoglobin [Mass/volume] in BloodOrdered By: CANDICE Cody on 08-02-2022 Hemoglobin (Bld) [Mass/Vol] 11.5 g/dL 11.8-15.4 [facility] Leukocytes [#/volume] correc nneka for nucleated erythrocytes in Blood by Automated counOrdered By: CANDICE Cody on 08-02-2022 WBC corrected for nucl RBC Auto (Bld) [#/Vol] 9.1 10*3/uL 3.8-11.6 [facility] Lymphocytes Auto (Bld) [#/Vo l]Ordered By: CANDICE Cody on 08-02-2022 Lymphocytes (Bld) [#/Vol] 1.6 10*3/uL 1.00-4.8 [facility] Lymphocytes/100 WBC Auto (Bl d)Ordered By: CANDICE Cody on 08-02-2022 Lymphocytes/100 WBC (Bld) 17.0 % . [facility] MCH Auto (RBC) [Entitic mass ]Ordered By: CANDICE Cody on 08-02-2022 MCH (RBC) [Entitic mass] 32.3 pg 24.7-34.3 [facility] MCHC Auto (RBC) [Mass/Vol]Or dered By: CANDICE Cody on 08-02-2022 MCHC (RBC) [Mass/Vol] 33.2 g/dL 32.0-35.0 [facility] MCV Auto (RBC) [Entitic vol] Ordered By: CANDICE Cody on 08-02-2022 MCV (RBC) [Entitic vol] 97.4 fL 80-100 [facility] Monocytes Auto (Bld) [#/Vol] Ordered By: CANDICE Cody on 08-02-2022 Monocytes (Bld) [#/Vol] 0.6 10*3/uL 0.0-0.8 [facility] Monocytes/100 WBC Auto (Bld) Ordered By: CANDICE Cody on 08-02-2022 Monocytes/100 WBC (Bld) 6.8 % . [facility] Neutrophils Auto (Bld) [#/Vo l]Ordered By: CANDICE Cody on 08-02-2022 Neutrophils (Bld) [#/Vol] 6.9 10*3/uL 1.8-7.7 [facility] Neutrophils/100 WBC Auto (Bl d)Ordered By: CANDICE Cody on 08-02-2022 Neutrophils/100 WBC (Bld) 75.1 % . [facility] No Panel InformationOrdered By: CANDICE Cody on 08-02-2022 Estimated GFR () > 60 mL/Min [facility] Comment on above: GFR estimated refere nce range: According to KDOQI guidelines, <60 ml/min/1.73m2 is sufficient to diagnose a patient with chronic kidney disease. Pharmacy Creatinine Clearance (Chem 152.15 [facility] Nucleated erythrocytes [Pres ence] in Blood by Automated countOrdered By: CANDICE Cody on 08-02-2022 Nucleated RBC Auto Ql (Bld) 0.0 /100{WBC} 0-0.5 [facility] Platelet mean volume Auto (B ld) [Entitic vol]Ordered By: CANDICE Cody on 08-02-2022 Platelet mean volume (Bld) [Entitic vol] 8.2 fL 6.3-10.7 [facility] Platelets Auto (Bld) [#/Vol] Ordered By: CANDICE Cody on 08-02-2022 Platelets (Bld) [#/Vol] 130 10*3/uL 150-450 [facility] Protein [Mass/volume] in Ser um or PlasmaOrdered By: CANDICE Cody on 08-02-2022 Protein [Mass/Vol] 5.8 g/dL 6.1-7.9 [facility] RBC Auto (Bld) [#/Vol]Ordere d By: CANDICE Cody on 08-02-2022 RBC (Bld) [#/Vol] 3.57 10*6/uL 3.60-5.00 [facility] Reagin Ab [Presence] in Seru m by RPROrdered By: CANDICE Cody on 08-02-2022 Reagin Ab RPR Ql (S) Non-Reactive Non Reactive [facility] Comment on above: Performed at: [place] [id number] Director: Prabhakar Warren PhD, Phone: [phone] Serum or plasma alanine cox otransferase measurement without P-5'-P (enzymatic activiOrdered By: CANDICE Cody on 08-02-2022 ALT No additional P-5'-P [Catalytic activity/Vol] 12 U/L 10-60 [facility] Serum or plasma albumin/glob ulin mass ratioOrdered By: CANDICE Cody on 08-02-2022 Albumin/Globulin [Mass ratio] 0.9 {ratio} [facility] Serum or plasma alkaline sam sphatase measurement (enzymatic activity/volume)Ordered By: CANDICE Cody on 08-02-2022 ALP [Catalytic activity/Vol] 97 U/L 32-92 [facility] Serum or plasma anion gap de terminationOrdered By: CANDICE Cody on 08-02-2022 Anion gap [Moles/Vol] 11.3 mmol/L 6.0-15.0 [facility] Serum or plasma aspartate am inotransferase measurement (enzymatic activity/volume)Ordered By: CANDICE Cody on 08-02-2022 AST [Catalytic activity/Vol] 19 U/L 10-42 [facility] Serum or plasma calcium katie urement (mass/volume)Ordered By: CANDICE Cody on 08-02-2022 Calcium [Mass/Vol] 9.6 mg/dL 8.2-10.2 [facility] Serum or plasma chloride victorino surement (moles/volume)Ordered By: CANDICE Cody on 08-02-2022 Chloride [Moles/Vol] 107 mmol/L 95-114 [facility] Serum or plasma glucose katie urement (mass/volume)Ordered By: CANDICE Cody on 08-02-2022 Glucose [Mass/Vol] 84 mg/dL 70-100 [facility] Comment on above: ADA recommended refe rence rangeRandom Glucose Reference Range is dependent on time and content of last meal. Glucose of more than 200 mg/dL in a nonstressed, ambulatory subject supports the diagnosis of Diabetes Mellitus. Serum or plasma potassium me asurement (moles/volume)Ordered By: CANDICE Cody on 08-02-2022 Potassium [Moles/Vol] 3.8 mmol/L 3.5-5.1 [facility] Serum or plasma sodium measu rement (moles/volume)Ordered By: CANDICE Cody on 08-02-2022 Sodium [Moles/Vol] 135 mmol/L 136-146 [facility] Serum or plasma total biliru bin measurement (mass/volume)Ordered By: CANDICE Cody on 08-02-2022 Bilirubin [Mass/Vol] 0.6 mg/dL 0.3-1.2 [facility] Serum or plasma total carbon dioxide measurement (moles/volume)Ordered By: JASON Cody on 08-02-2022 CO2 [Moles/Vol] 20.5 mmol/L 22.0-30.0 [facility] Serum or plasma urea nitroge n measurement (mass/volume)Ordered By: CANDICE Cody on 08-02-2022 Urea nitrogen [Mass/Vol] 6 mg/dL 9-23 [facility] Serum or plasma uric acid me asurement (mass/volume)Ordered By: CANDICE Cody on 08-02-2022 Urate [Mass/Vol] 4.5 mg/dL 2.6-7.2 [facility] WBC Auto (Bld) [#/Vol]Ordere d By: CANDICE Cody on 08-02-2022 WBC (Bld) [#/Vol] 9.1 10*3/uL 3.8-11.6 [facility] Amphetamine Screen Ql (U)Ord ered By: CANDICE Cody on 08-01-2022 Amphetamines Ql (U) Negative Negative [facility] Automated erythrocytes count in urine sediment (number/area)Ordered By: CANDICE Cody on 08-01-2022 RBC Auto (Urine sed) [#/Area] 3-4 [HPF] 0-4 [facility] Automated leukocytes count i n urine sediment (number/area)Ordered By: CANDICE Cody on 08-01-2022 WBC Auto (Urine sed) [#/Area] 50-100 [HPF] 0-4 [facility] Barbiturates [Presence] in U rineOrdered By: CANDICE Cody on 08-01-2022 Barbiturates Ql (U) Negative Negative [facility] Benzodiazepines [Presence] i n UrineOrdered By: CANDICE Cody on 08-01-2022 Benzodiazepines Ql (U) Negative Negative [facility] Bilirubin Test strip Ql (U)O rdered By: CANDICE Cody on 08-01-2022 Bilirubin Ql (U) Negative Negative [facility] Color Auto (U)Ordered By: MD CAMILLE Cody on 08-01-2022 Color (U) Yellow Yellow [facility] Ketones Auto test strip (U) [Mass/Vol]Ordered By: CANDICE Cody on 08-01-2022 Ketones (U) [Mass/Vol] Negative Negative [facility] Laboratory - Drug toxicology Ordered By: CANDICE Cody on 08-01-2022 Opiates Ql (U) Negative Negative [facility] Laboratory - UrinalysisOrder ed By: CANDICE Cody on 08-01-2022 Hyaline casts LM Ql (Urine sed) 0-8 [LPF] 0-8 [facility] Nitrite Test strip Ql (U)Ord ered By: CANDICE Cody on 08-01-2022 Nitrite Ql (U) Negative Negative [facility] Phencyclidine Screen Ql (U)O rdered By: CANDICE Cody on 08-01-2022 Phencyclidine Ql (U) Negative Negative [facility] Comment on above: These are unconfirme d results and should not be used for legal purposes. Drug Cut-Off Concentration: AMPH 1000 ng/mL BOO 200 ng/mL HELGA 200 ng/mL COCM 300 ng/mL OP 300 ng/mL PCP 25 ng/mL Protein Auto test strip (U) [Mass/Vol]Ordered By: CANDICE Cody on 08-01-2022 Protein (U) [Mass/Vol] Negative Negative Fi relaCounts include [facility] beds [facility] the [facility] Specific gravity Auto test s trip (U) [Rel density]Ordered By: CANDICE Cody on 08-01-2022 Specific gravity (U) [Rel density] 1.014 1.001-1.030 [facility] Squamous epithelial cells de tection in urine sediment by light microscopyOrdered By: CANDICE Cody on 08-01-2022 Epithelial cells.squamous LM Ql (Urine sed) 5-9 [HPF] 0-2 [facility] Urine bacteria detection by automated methodOrdered By: CANDICE Cody on 08-01-2022 Bacteria Auto Ql (U) None seen None Seen [facility] Urine clarity by refractomet ry automatedOrdered By: CANDICE Cody on 08-01-2022 Clarity Refractometry automated (U) Cloudy Clear [facility] Urine cocaine detectionOrder ed By: CANDICE Cody on 08-01-2022 Cocaine Ql (U) Negative Negative [facility] Urine culture routineOrdered By: CANDICE Cody on 08-01-2022 Bacteria identified Cx Nom (U) 2 Days [facility] Bacteria identified Cx Nom (U) 2 Days [facility] Urine glucose measurement by automated test strip (mass/volume)Ordered By: JASON Cody on 08-01-2022 Glucose Auto test strip (U) [Mass/Vol] Normal mg/dL Normal [facility] Urine hemoglobin detection b y automated test stripOrdered By: CANDICE Cody on 08-01-2022 Hemoglobin Auto test strip Ql (U) Negative Negative [facility] Urine leukocyte esterase det ection by automated test stripOrdered By: CANDICE Cody on 08-01-2022 Leukocyte esterase Auto test strip Ql (U) 4+ Negative [facility] Urobilinogen Auto test strip (U) [Mass/Vol]Ordered By: CANDICE Cody on 08-01-2022 Urobilinogen (U) [Mass/Vol] Normal mg/dL Normal [facility] pH Auto test strip (U)Ordere d By: CANDICE Cody on 08-01-2022 pH (U) 5.5 [pH] 5.0-9.0 [facility] S. agalactiae Org specific c x [...] here for 6 month follow-up with [facility]. 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 Personal review of ECG and cardiac data reviewed . Outside records: OV with me December 2021 Device check December 2021 ECG December 2021 Device Check: Today. [employer] 8273 pacemaker. Estimate longevity device over 7 years. [...] Overweight AHA (more content not included)... Normal [facility] Tobacco Screening.on 023 Fall risk assessment a) No falls within the last year [facility] [employer] DO Work Phone: Tobacco use status [facility] b) No [facility] [employer] DO Work Phone: Tobacco Screening. Yes [facility] [employer] DO Work Phone: Amphetamine Screen Ql (U)Ord ered By: Michael Cerda on 07-15-2022 Amphetamines Ql (U) Negative Negative [facility] Automated erythrocytes count in urine sediment (number/area)Ordered By: Michael Cerda on 07-15-2022 RBC Auto (Urine sed) [#/Area] 0-1 [HPF] 0-4 [facility] Automated leukocytes count i n urine sediment (number/area)Ordered By: Michael Cerda on 07-15-2022 WBC Auto (Urine sed) [#/Area] 50-100 [HPF] 0-4 [facility] Barbiturates [Presence] in U rineOrdered By: Michael Cerda on 07-15-2022 Barbiturates Ql (U) Negative Negative [facility] Basophils Auto (Bld) [#/Vol] Ordered By: Michael Cerda on 07-15-2022 Basophils (Bld) [#/Vol] 0.0 10*3/uL 0.0-0.2 [facility] Basophils/100 WBC Auto (Bld) Ordered By: Michael Cerda on 07-15-2022 Basophils/100 WBC (Bld) 0.4 % . [facility] Benzodiazepines [Presence] i n UrineOrdered By: Michael Cerda on 07-15-2022 Benzodiazepines Ql (U) Negative Negative [facility] Bilirubin Test strip Ql (U)O rdered By: Michael Cerda on 07-15-2022 Bilirubin Ql (U) Negative Negative [facility] Body fluid albumin measureme nt (mass/volume)Ordered By: Michael Cerda on 07-15-2022 Albumin (Body fld) [Mass/Vol] 2.9 g/dL 3.2-5.5 [facility] Cannabinoids [Presence] in U rine by Screen methodOrdered By: Michael Cerda on 07-15-2022 Cannabinoids Screen Ql (U) Negative Negative [facility] Comment on above: These are unconfirme d results and should not be used for legal purposes. Drug Cut-Off Concentration: AMPH 1000 ng/mL BOO 200 ng/mL HELGA 200 ng/mL COCM 300 ng/mL OP 300 ng/mL PCP 25 ng/mL THC 20 ng/mL Cholesterol [Mass/volume] in Serum or PlasmaOrdered By: Eduardo Swain on 07-15-2022 Cholesterol [Mass/Vol] 250 mg/dL 140-200 [facility] Comment on above: Chol less than 200 m g/dl low riskChol 201-239 mg/dl borderline riskChol 240 mg/dl and greater high risk Cholesterol in LDL Calc [Mas s/Vol]Ordered By: Eduardo Swain on 07-15-2022 Cholesterol in LDL [Mass/Vol] 138 mg/dL 0-100 [facility] Comment on above: LDL ATP III CLASSIFI CATIONLDL less than 100 mg/dL OptimalLDL 100-129 mg/dL Near or above optimalLDL 130-159 mg/dL Borderline highLDL 160-189 mg/dL HighLDL greater than 189 mg/dL Very high Cholesterol in VLDL Calc [Ma ss/Vol]Ordered By: Eduardo Swain on 07-15-2022 Cholesterol in VLDL [Mass/Vol] 40 mg/dL [facility] Color Auto (U)Ordered By: Lorene Cerda on 07-15-2022 Color (U) Yellow Yellow [facility] Creatinine and Glomerular fi ltration rate.predicted panel (S/P/Bld)Ordered By: Michael Cerda on 07-15-2022 Creatinine [Mass/Vol] 0.66 mg/dL 0.44-1.03 [facility] Eosinophils Auto (Bld) [#/Vo l]Ordered By: Michael Cerda on 07-15-2022 Eosinophils (Bld) [#/Vol] 0.0 10*3/uL 0.0-0.45 [facility] Eosinophils/100 WBC Auto (Bl d)Ordered By: Michael Cerda on 07-15-2022 Eosinophils/100 WBC (Bld) 0.4 % . [facility] Erythrocyte distribution wid th Auto (RBC) [Ratio]Ordered By: Michael Cerda on 07-15-2022 Erythrocyte distribution width (RBC) [Ratio] 18.8 % 11.9-15.3 [facility] Estimated glomerular filtrat ion rate (GFR) non- AmericanOrdered By: Michael Cerda on 07-15-2022 GFR/1.73 sq M.predicted among non-blacks MDRD (S/P/Bld) [Vol rate/Area] > 60 mL/Min [facility] Globulin Calc (S) [Mass/Vol] Ordered By: Michael Cerda on 07-15-2022 Globulin (S) [Mass/Vol] 3.2 g/dL [facility] Hematocrit Auto (Bld) [Volum e fraction]Ordered By: Michael Cerda on 07-15-2022 Hematocrit (Bld) [Volume fraction] 34.4 % 34.0-46.4 [facility] Hemoglobin [Mass/volume] in BloodOrdered By: Michael Cerda on 07-15-2022 Hemoglobin (Bld) [Mass/Vol] 11.3 g/dL 11.8-15.4 [facility] Ketones Auto test strip (U) [Mass/Vol]Ordered By: Michael Cerda on 07-15-2022 Ketones (U) [Mass/Vol] 2+ Negative Fi relaCounts include 234 beds at the [facility] Laboratory - Drug toxicology Ordered By: Michael Cerda on 07-15-2022 Opiates Ql (U) Negative Negative [facility] Laboratory - UrinalysisOrder ed By: Michael Cerda on 07-15-2022 Hyaline casts LM Ql (Urine sed) 0-8 [LPF] 0-8 [facility] Leukocytes [#/volume] correc nneka for nucleated erythrocytes in Blood by Automated counOrdered By: Michael Cerda on 07-15-2022 WBC corrected for nucl RBC Auto (Bld) [#/Vol] 7.8 10*3/uL 3.8-11.6 [facility] Lymphocytes Auto (Bld) [#/Vo l]Ordered By: Michael Cerda on 07-15-2022 Lymphocytes (Bld) [#/Vol] 1.2 10*3/uL 1.00-4.8 [facility] Lymphocytes/100 WBC Auto (Bl d)Ordered By: Michael Cerda on 07-15-2022 Lymphocytes/100 WBC (Bld) 15.2 % . [facility] MCH Auto (RBC) [Entitic mass ]Ordered By: Michael Cerda on 07-15-2022 MCH (RBC) [Entitic mass] 31.8 pg 24.7-34.3 [facility] MCHC Auto (RBC) [Mass/Vol]Or dered By: Michael Cerda on 07-15-2022 MCHC (RBC) [Mass/Vol] 33.0 g/dL 32.0-35.0 [facility] MCV Auto (RBC) [Entitic vol] Ordered By: Michael Cerda on 07-15-2022 MCV (RBC) [Entitic vol] 96.4 fL 80-100 [facility] Monocyte distribution width [Entitic volume] in Blood by AutomatedOrdered By: Michael Cerda on 07-15-2022 Monocyte distribution width Auto (Bld) [Entitic vol] 19.01 % 0.00-20.00 [facility] Monocytes Auto (Bld) [#/Vol] Ordered By: Michael Cerda on 07-15-2022 Monocytes (Bld) [#/Vol] 0.4 10*3/uL 0.0-0.8 [facility] Monocytes/100 WBC Auto (Bld) Ordered By: Michael Cerda on 07-15-2022 Monocytes/100 WBC (Bld) 5.1 % . [facility] Neutrophils Auto (Bld) [#/Vo l]Ordered By: Michael Cerda on 07-15-2022 Neutrophils (Bld) [#/Vol] 6.1 10*3/uL 1.8-7.7 [facility] Neutrophils/100 WBC Auto (Bl d)Ordered By: Michael Cerda on 07-15-2022 Neutrophils/100 WBC (Bld) 78.9 % . [facility] Nitrite Test strip Ql (U)Ord ered By: Michael Cerda on 07-15-2022 Nitrite Ql (U) Negative Negative [facility] No Panel InformationOrdered By: Eduardo Swain on 07-15-2022 25-Hydroxy Vitamin D Total 38.8 ng/mL 30-100 [facility] Comment on above: VITAMIN D STATUS 25( [place])VITAMIN D RANGE (ng/mL) Deficient <20 Insufficient 20 to <30Sufficient 30 to 100Reference: Franklyn MF,Benjamin NC, Andreina MARQUEZ, et al. Evaluation,treatment, and prevention of vitamin D deficiency; an Endocrine Society clinical practice guideline. JCEM. 2010; 96(7):1911-30. No Panel InformationOrdered By: Michael Cerda on 07-15-2022 Estimated GFR () > 60 mL/Min [facility] Comment on above: GFR estimated refere nce range: According to KDOQI guidelines, <60 ml/min/1.73m2 is sufficient to diagnose a patient with chronic kidney disease. Pharmacy Creatinine Clearance (Chem 148.00 [facility] Nucleated erythrocytes [Pres ence] in Blood by Automated countOrdered By: Michael Cerda on 07-15-2022 Nucleated RBC Auto Ql (Bld) 0.1 /100{WBC} 0-0.5 [facility] Phencyclidine Screen Ql (U)O rdered By: iMchael Cerda on 07-15-2022 Phencyclidine Ql (U) Negative Negative [facility] Platelet mean volume Auto (B ld) [Entitic vol]Ordered By: Michael Cerda on 07-15-2022 Platelet mean volume (Bld) [Entitic vol] 7.9 fL 6.3-10.7 [facility] Platelets Auto (Bld) [#/Vol] Ordered By: Michael Cerda on 07-15-2022 Platelets (Bld) [#/Vol] 157 10*3/uL 150-450 [facility] Protein Auto test strip (U) [Mass/Vol]Ordered By: Michael Cerda on 07-15-2022 Protein (U) [Mass/Vol] Negative Negative Fi [facility] Protein [Mass/volume] in Ser um or PlasmaOrdered By: Michael Cerda on 07-15-2022 Protein [Mass/Vol] 6.1 g/dL 6.1-7.9 [facility] RBC Auto (Bld) [#/Vol]Ordere d By: Michael Cerda on 07-15-2022 RBC (Bld) [#/Vol] 3.57 10*6/uL 3.60-5.00 [facility] Serum or plasma alanine cox otransferase measurement without P-5'-P (enzymatic activiOrdered By: Michael Cerda on 07-15-2022 ALT No additional P-5'-P [Catalytic activity/Vol] 14 U/L 10-60 [facility] Serum or plasma albumin/glob ulin mass ratioOrdered By: Michael Cerda on 07-15-2022 Albumin/Globulin [Mass ratio] 0.9 {ratio} [facility] Serum or plasma alkaline sam sphatase measurement (enzymatic activity/volume)Ordered By: Michael Cerda on 07-15-2022 ALP [Catalytic activity/Vol] 83 U/L 32-92 [facility] Serum or plasma anion gap de terminationOrdered By: Michael Cerda on 07-15-2022 Anion gap [Moles/Vol] 13.3 mmol/L 6.0-15.0 [facility] Serum or plasma aspartate am inotransferase measurement (enzymatic activity/volume)Ordered By: Michael Cerda on 07-15-2022 AST [Catalytic activity/Vol] 22 U/L 10-42 [facility] Serum or plasma calcium katie urement (mass/volume)Ordered By: Michael Cerda on 07-15-2022 Calcium [Mass/Vol] 9.5 mg/dL 8.2-10.2 [facility] Serum or plasma chloride victorino surement (moles/volume)Ordered By: Michael Cerda on 07-15-2022 Chloride [Moles/Vol] 104 mmol/L 95-114 [facility] Serum or plasma ethanol katie urement (mass/volume)Ordered By: Michael Cerda on 07-15-2022 Ethanol [Mass/Vol] mg/dL [facility] Ethanol [Mass/Vol] TNP [facility] Comment on above: Test not performed Serum or plasma glucose katie urement (mass/volume)Ordered By: Michael Cerda on 07-15-2022 Glucose [Mass/Vol] 82 mg/dL 70-100 [facility] Comment on above: ADA recommended refe rence rangeRandom Glucose Reference Range is dependent on time and content of last meal. Glucose of more than 200 mg/dL in a nonstressed, ambulatory subject supports the diagnosis of Diabetes Mellitus. Serum or plasma high density lipoprotein (HDL) cholesterol measurementOrdered By: Eduardo Swain on 07-15-2022 Cholesterol in HDL [Mass/Vol] 72 mg/dL 35-85 [facility] Comment on above: HDL CHOL ATP-III CLA SSIFICATION Cardiovascular RiskHDL > or equal to 60 mg/dL LOWHDL < 40 mg/dL HIGH Serum or plasma potassium me asurement (moles/volume)Ordered By: Michael Cerda on 07-15-2022 Potassium [Moles/Vol] 3.6 mmol/L 3.5-5.1 [facility] Serum or plasma sodium measu rement (moles/volume)Ordered By: Michael Cerda on 07-15-2022 Sodium [Moles/Vol] 135 mmol/L 136-146 [facility] Serum or plasma total biliru bin measurement (mass/volume)Ordered By: Michael Cerda on 07-15-2022 Bilirubin [Mass/Vol] 0.6 mg/dL 0.3-1.2 [facility] Serum or plasma total carbon dioxide measurement (moles/volume)Ordered By: Michael Cerda on 07-15-2022 CO2 [Moles/Vol] 21.3 mmol/L 22.0-30.0 [facility] Serum or plasma total choles terol/high density lipoprotein (HDL) cholesterol mass ratOrdered By: Eduardo Swain on 07-15-2022 Cholesterol.total/Chol esterol in HDL [Mass ratio] 3.5 {ratio} <5.0 [facility] Serum or plasma urea nitroge n measurement (mass/volume)Ordered By: Michael Cerda on 07-15-2022 Urea nitrogen [Mass/Vol] 4 mg/dL 9-23 [facility] Specific gravity Auto test s trip (U) [Rel density]Ordered By: Michael Cerda on 07-15-2022 Specific gravity (U) [Rel density] 1.010 1.001-1.030 [facility] Squamous epithelial cells de tection in urine sediment by light microscopyOrdered By: Michael Cerda on 07-15-2022 Epithelial cells.squamous LM Ql (Urine sed) 5-9 [HPF] 0-2 [facility] TSH DL <= 0.005 mIU/L QnOrde red By: Eduardo Swain on 07-15-2022 TSH Qn 2.04 m[IU]/L 0.45-5.33 [facility] Triglyceride [Mass/volume] i n Serum or PlasmaOrdered By: Eduardo Swain on 07-15-2022 Triglyceride [Mass/Vol] 200 mg/dL 35-149 [facility] Comment on above: TRIG ATP III CLASSIF ICATIONTRIG less than 150 mg/dL NormalTRIG 150-199 mg/dL Borderline highTRIG 200-500 mg/dL High TRIG greater than 500 mg/dL Very highStandard traceable to the Center for Disease Conrtrol and Prevention (CDC) test method. Urine bacteria detection by automated methodOrdered By: Michael Cerda on 07-15-2022 Bacteria Auto Ql (U) None seen None Seen [facility] Urine clarity by refractomet ry automatedOrdered By: Michael Cerda on 07-15-2022 Clarity Refractometry automated (U) Cloudy Clear [facility] Urine cocaine detectionOrder ed By: Michael Cerda on 07-15-2022 Cocaine Ql (U) Negative Negative [facility] Urine culture routineOrdered By: Michael Cerda on 07-15-2022 Bacteria identified Cx Nom (U) 2 Days [facility] Urine glucose measurement by automated test strip (mass/volume)Ordered By: Michael Cerda on 07-15-2022 Glucose Auto test strip (U) [Mass/Vol] Normal mg/dL Normal [facility] Urine hemoglobin detection b y automated test stripOrdered By: Michael Creda on 07-15-2022 Hemoglobin Auto test strip Ql (U) Negative Negative [facility] Urine leukocyte esterase det ection by automated test stripOrdered By: Michael Cerda on 07-15-2022 Leukocyte esterase Auto test strip Ql (U) 4+ Negative [facility] Urobilinogen Auto test strip (U) [Mass/Vol]Ordered By: Michael Cerda on 07-15-2022 Urobilinogen (U) [Mass/Vol] Normal mg/dL Normal [facility] WBC Auto (Bld) [#/Vol]Ordere d By: Michael Cerda on 07-15-2022 WBC (Bld) [#/Vol] 7.8 10*3/uL 3.8-11.6 [facility] pH Auto test strip (U)Ordere d By: Michael Cerda on 07-15-2022 pH (U) 5.5 [pH] 5.0-9.0 [facility] Basophils Auto (Bld) [#/Vol] Ordered By: Urbano Palma on 07-09-2022 Basophils (Bld) [#/Vol] 0.0 10*3/uL 0.0-0.2 [facility] Basophils/100 WBC Auto (Bld) Ordered By: Urbano Palma on 07-09-2022 Basophils/100 WBC (Bld) 0.4 % . [facility] Eosinophils Auto (Bld) [#/Vo l]Ordered By: Urbano Palma on 07-09-2022 Eosinophils (Bld) [#/Vol] 0.1 10*3/uL 0.0-0.45 [facility] Eosinophils/100 WBC Auto (Bl d)Ordered By: Urbano Palma on 07-09-2022 Eosinophils/100 WBC (Bld) 1.0 % . [facility] Erythrocyte distribution wid th Auto (RBC) [Ratio]Ordered By: Urbano Palma on 07-09-2022 Erythrocyte distribution width (RBC) [Ratio] 19.0 % 11.9-15.3 [facility] Hematocrit Auto (Bld) [Volum e fraction]Ordered By: Urbano Palma on 07-09-2022 Hematocrit (Bld) [Volume fraction] 37.4 % 34.0-46.4 [facility] Hemoglobin [Mass/volume] in BloodOrdered By: Urbano Palma on 07-09-2022 Hemoglobin (Bld) [Mass/Vol] 12.2 g/dL 11.8-15.4 [facility] Leukocytes [#/volume] correc nneka for nucleated erythrocytes in Blood by Automated counOrdered By: Urbano Palma on 07-09-2022 WBC corrected for nucl RBC Auto (Bld) [#/Vol] 8.1 10*3/uL 3.8-11.6 [facility] Lymphocytes Auto (Bld) [#/Vo l]Ordered By: Urbano Palma on 07-09-2022 Lymphocytes (Bld) [#/Vol] 1.2 10*3/uL 1.00-4.8 [facility] Lymphocytes/100 WBC Auto (Bl d)Ordered By: Urbano Palma on 07-09-2022 Lymphocytes/100 WBC (Bld) 14.9 % . [facility] MCH Auto (RBC) [Entitic mass ]Ordered By: Urbano Palma on 07-09-2022 MCH (RBC) [Entitic mass] 31.4 pg 24.7-34.3 [facility] MCHC Auto (RBC) [Mass/Vol]Or dered By: rUbano Palma on 07-09-2022 MCHC (RBC) [Mass/Vol] 32.7 g/dL 32.0-35.0 [facility] MCV Auto (RBC) [Entitic vol] Ordered By: Urbano Palma on 07-09-2022 MCV (RBC) [Entitic vol] 95.8 fL 80-100 [facility] Monocytes Auto (Bld) [#/Vol] Ordered By: Urbano Palma on 07-09-2022 Monocytes (Bld) [#/Vol] 0.4 10*3/uL 0.0-0.8 [facility] Monocytes/100 WBC Auto (Bld) Ordered By: Urbano Palma on 07-09-2022 Monocytes/100 WBC (Bld) 5.1 % . [facility] Neutrophils Auto (Bld) [#/Vo l]Ordered By: Urbano Palma on 07-09-2022 Neutrophils (Bld) [#/Vol] 6.3 10*3/uL 1.8-7.7 [facility] Neutrophils/100 WBC Auto (Bl d)Ordered By: Urbano Palma on 07-09-2022 Neutrophils/100 WBC (Bld) 78.6 % . [facility] Nucleated erythrocytes [Pres ence] in Blood by Automated countOrdered By: Urbano Palma on 07-09-2022 Nucleated RBC Auto Ql (Bld) 0.1 /100{WBC} 0-0.5 [facility] Platelet mean volume Auto (B ld) [Entitic vol]Ordered By: Urbano Palma on 07-09-2022 Platelet mean volume (Bld) [Entitic vol] 8.2 fL 6.3-10.7 [facility] Platelets Auto (Bld) [#/Vol] Ordered By: Urbano Palma on 07-09-2022 Platelets (Bld) [#/Vol] 180 10*3/uL 150-450 [facility] RBC Auto (Bld) [#/Vol]Ordere d By: Urbano Palma on 07-09-2022 RBC (Bld) [#/Vol] 3.91 10*6/uL 3.60-5.00 [facility] WBC Auto (Bld) [#/Vol]Ordere d By: Urbano Palma on 07-09-2022 WBC (Bld) [#/Vol] 8.1 10*3/uL 3.8-11.6 [facility] Serum or plasma glucose tole cecelia 3 hours panelOrdered By: Urbano Palma on 06-30-2022 Glucose tolerance 3 hours panel See comment [facility] Comment on above: FASTING 82 Col: 03/14 0616 1HR GLU 215 Col: 06/30/22 0800 2HR GLU 194 Col: 06/30/22 0901 3HR GLU 71 Col: 06/30/22 1000 Amphetamine Screen Ql (U)Ord ered By: DELANEY CARLISLE on 06-26-2022 Amphetamines Ql (U) Negative Negative [facility] Automated erythrocytes count in urine sediment (number/area)Ordered By: DELANEY CARLSILE on 06-26-2022 RBC Auto (Urine sed) [#/Area] 1-2 [HPF] 0-4 [facility] Automated leukocytes count i n urine sediment (number/area)Ordered By: DELANEY CARLISLE on 06-26-2022 WBC Auto (Urine sed) [#/Area] 50-100 [HPF] 0-4 [facility] Automated urine hyaline cast s count (number/volume)Ordered By: DELANEY CARLISLE on 06-26-2022 Hyaline casts Auto (U) [#/Vol] None seen [LPF] 0-1 [facility] Automated urine sediment claudia cium oxalate crystal count by microscopy (number/high powOrdered By: DELANEY CARLISLE on 06-26-2022 Calcium oxalate crystals LM.HPF (Urine sed) [#/Area] 3+ [HPF] [facility] Barbiturates [Presence] in U rineOrdered By: DELANEY CARLISLE on 06-26-2022 Barbiturates Ql (U) Negative Negative [facility] Benzodiazepines [Presence] i n UrineOrdered By: DELANEY CARLISLE on 06-26-2022 Benzodiazepines Ql (U) Negative Negative [facility] Bilirubin Test strip Ql (U)O rdered By: DELANEY CARLISLE on 06-26-2022 Bilirubin Ql (U) 1+ Negative [facility] Color Auto (U)Ordered By: VLAD CARLISLE on 06-26-2022 Color (U) Dark yellow Yellow [facility] fibronectinOrdered By: DELANEY CARLISLE on 06-26-2022 Fibronectin. (Vag fld) [Mass/Vol] Negative Negative [facility] Ketones Auto test strip (U) [Mass/Vol]Ordered By: DELANEY CARLISLE on 06-26-2022 Ketones (U) [Mass/Vol] 1+ Negative [facility] Laboratory - Drug toxicology Ordered By: DELANEY CARLISLE on 06-26-2022 Opiates Ql (U) Negative Negative [facility] Nitrite Test strip Ql (U)Ord ered By: DELANEY CARLISLE on 06-26-2022 Nitrite Ql (U) Negative Negative [facility] No Panel InformationOrdered By: DELANEY CARLISLE on 06-26-2022 Membranes Rupture (PAMG-1) Negative Negative [facility] Phencyclidine Screen Ql (U)O rdered By: DELANEY CARLISLE on 06-26-2022 Phencyclidine Ql (U) Negative Negative [facility] Comment on above: These are unconfirme d results and should not be used for legal purposes. Drug Cut-Off Concentration: AMPH 1000 ng/mL BOO 200 ng/mL HELGA 200 ng/mL COCM 300 ng/mL OP 300 ng/mL PCP 25 ng/mL Protein Auto test strip (U) [Mass/Vol]Ordered By: DELANEY CARLISLE on 06-26-2022 Protein (U) [Mass/Vol] 30 mg/dL Negative [facility] Specific gravity Auto test s trip (U) [Rel density]Ordered By: DELANEY CARLISLE on 06-26-2022 Specific gravity (U) [Rel density] 1.029 1.001-1.030 [facility] Squamous epithelial cells de tection in urine sediment by light microscopyOrdered By: DELANEY CARLISLE on 06-26-2022 Epithelial cells.squamous LM Ql (Urine sed) 5-9 [HPF] 0-2 [facility] Urine bacteria detection by automated methodOrdered By: DELANEY CARLISLE on 06-26-2022 Bacteria Auto Ql (U) None seen None Seen [facility] Urine clarity by refractomet ry automatedOrdered By: DELANEY CARLISLE on 06-26-2022 Clarity Refractometry automated (U) Turbid Clear [facility] Urine cocaine detectionOrder ed By: DELANEY CARLISLE on 06-26-2022 Cocaine Ql (U) Negative Negative [facility] Urine culture routineOrdered By: DELANEY CARLISLE on 06-26-2022 Bacteria identified Cx Nom (U) Cinthya albicans [facility] Urine glucose measurement by automated test strip (mass/volume)Ordered By: DELANEY CARLISLE on 06-26-2022 Glucose Auto test strip (U) [Mass/Vol] Normal mg/dL Normal [facility] Urine hemoglobin detection b y automated test stripOrdered By: DELANEY CARLISLE on 06-26-2022 Hemoglobin Auto test strip Ql (U) Negative Negative [facility] Urine leukocyte esterase det ection by automated test stripOrdered By: DELANEY CARLISLE on 06-26-2022 Leukocyte esterase Auto test strip Ql (U) 3+ Negative [facility] Urine sediment crystal ident ification by light microscopyOrdered By: DELANEY CARLISLE on 06-26-2022 Crystals LM Nom (Urine sed) None seen [HPF] [facility] Urobilinogen Auto test strip (U) [Mass/Vol]Ordered By: DELANEY CARLISLE on 06-26-2022 Urobilinogen (U) [Mass/Vol] Normal mg/dL Normal [facility] Yeast detection in urine sed iment by light microscopyOrdered By: DELANEY CARLISLE on 06-26-2022 Yeast LM Ql (Urine sed) 2+ [HPF] None Seen [facility] pH Auto test strip (U)Ordere d By: DELANEY CARLISLE on 06-26-2022 pH (U) 5.5 [pH] 5.0-9.0 [facility] Automated erythrocytes count in urine sediment (number/area)Ordered By: Michael Cerda on 06-25-2022 RBC Auto (Urine sed) [#/Area] 3-4 [HPF] 0-4 [facility] Automated leukocytes count i n urine sediment (number/area)Ordered By: Michael Cerda on 06-25-2022 WBC Auto (Urine sed) [#/Area] Innumerable [HPF] 0-4 [facility] Basophils Auto (Bld) [#/Vol] Ordered By: PROVIDER TEMP on 06-25-2022 Basophils (Bld) [#/Vol] 0.0 10*3/uL 0.0-0.2 [facility] Basophils/100 WBC Auto (Bld) Ordered By: PROVIDER TEMP on 06-25-2022 Basophils/100 WBC (Bld) 0.1 % . [facility] Bilirubin Test strip Ql (U)O rdered By: Michael Cerda on 06-25-2022 Bilirubin Ql (U) Negative Negative [facility] Body fluid albumin measureme nt (mass/volume)Ordered By: PROVIDER TEMP on 06-25-2022 Albumin (Body fld) [Mass/Vol] 2.7 g/dL 3.2-5.5 [facility] Casts typing in urine sedime nt by light microscopyOrdered By: Michael Cerda on 06-25-2022 Casts LM Nom (Urine sed) None seen [LPF] None Seen [facility] Color Auto (U)Ordered By: Lorene Cerda on 06-25-2022 Color (U) Yellow Yellow [facility] Creatinine and Glomerular fi ltration rate.predicted panel (S/P/Bld)Ordered By: PROVIDER TEMP on 06-25-2022 Creatinine [Mass/Vol] 0.64 mg/dL 0.44-1.03 [facility] Eosinophils Auto (Bld) [#/Vo l]Ordered By: PROVIDER TEMP on 06-25-2022 Eosinophils (Bld) [#/Vol] 0.1 10*3/uL 0.0-0.45 [facility] Eosinophils/100 WBC Auto (Bl d)Ordered By: PROVIDER TEMP on 06-25-2022 Eosinophils/100 WBC (Bld) 0.7 % . [facility] Erythrocyte distribution wid th Auto (RBC) [Ratio]Ordered By: PROVIDER TEMP on 06-25-2022 Erythrocyte distribution width (RBC) [Ratio] 16.1 % 11.9-15.3 [facility] Estimated glomerular filtrat ion rate (GFR) non- AmericanOrdered By: PROVIDER TEMP on 06-25-2022 GFR/1.73 sq M.predicted among non-blacks MDRD (S/P/Bld) [Vol rate/Area] > 60 mL/Min [facility] Globulin Calc (S) [Mass/Vol] Ordered By: PROVIDER TEMP on 06-25-2022 Globulin (S) [Mass/Vol] 3.3 g/dL [facility] Hematocrit Auto (Bld) [Volum e fraction]Ordered By: PROVIDER TEMP on 06-25-2022 Hematocrit (Bld) [Volume fraction] 29.0 % 34.0-46.4 [facility] Hemoglobin [Mass/volume] in BloodOrdered By: PROVIDER TEMP on 06-25-2022 Hemoglobin (Bld) [Mass/Vol] 9.9 g/dL 11.8-15.4 [facility] Ketones Auto test strip (U) [Mass/Vol]Ordered By: Michael Cerda on 06-25-2022 Ketones (U) [Mass/Vol] 4+ Negative [facility] Laboratory - UrinalysisOrder ed By: Michael Cerda on 06-25-2022 Hyaline casts LM Ql (Urine sed) 0-1 [LPF] 0-8 [facility] Leukocytes [#/volume] correc nneka for nucleated erythrocytes in Blood by Automated counOrdered By: PROVIDER TEMP on 06-25-2022 WBC corrected for nucl RBC Auto (Bld) [#/Vol] 10.5 10*3/uL 3.8-11.6 [facility] Lymphocytes Auto (Bld) [#/Vo l]Ordered By: PROVIDER TEMP on 06-25-2022 Lymphocytes (Bld) [#/Vol] 1.8 10*3/uL 1.00-4.8 [facility] Lymphocytes/100 WBC Auto (Bl d)Ordered By: PROVIDER TEMP on 06-25-2022 Lymphocytes/100 WBC (Bld) 16.7 % . [facility] MCH Auto (RBC) [Entitic mass ]Ordered By: PROVIDER TEMP on 06-25-2022 MCH (RBC) [Entitic mass] 31.6 pg 24.7-34.3 [facility] MCHC Auto (RBC) [Mass/Vol]Or dered By: PROVIDER TEMP on 06-25-2022 MCHC (RBC) [Mass/Vol] 34.2 g/dL 32.0-35.0 [facility] MCV Auto (RBC) [Entitic vol] Ordered By: PROVIDER TEMP on 06-25-2022 MCV (RBC) [Entitic vol] 92.4 fL 80-100 [facility] Monocyte distribution width [Entitic volume] in Blood by AutomatedOrdered By: PROVIDER TEMP on 06-25-2022 Monocyte distribution width Auto (Bld) [Entitic vol] 18.74 % 0.00-20.00 [facility] Monocytes Auto (Bld) [#/Vol] Ordered By: PROVIDER TEMP on 06-25-2022 Monocytes (Bld) [#/Vol] 0.8 10*3/uL 0.0-0.8 [facility] Monocytes/100 WBC Auto (Bld) Ordered By: PROVIDER TEMP on 06-25-2022 Monocytes/100 WBC (Bld) 7.5 % . [facility] Neutrophils Auto (Bld) [#/Vo l]Ordered By: PROVIDER TEMP on 06-25-2022 Neutrophils (Bld) [#/Vol] 7.9 10*3/uL 1.8-7.7 [facility] Neutrophils/100 WBC Auto (Bl d)Ordered By: PROVIDER TEMP on 06-25-2022 Neutrophils/100 WBC (Bld) 75.0 % . [facility] Nitrite Test strip Ql (U)Ord ered By: Michael Cerda on 06-25-2022 Nitrite Ql (U) Negative Negative [facility] No Panel InformationOrdered By: PROVIDER TEMP on 06-25-2022 Estimated GFR () > 60 mL/Min [facility] Comment on above: GFR estimated refere nce range: According to KDOQI guidelines, <60 ml/min/1.73m2 is sufficient to diagnose a patient with chronic kidney disease. Pharmacy Creatinine Clearance (Chem 153.48 [facility] Nucleated erythrocytes [Pres ence] in Blood by Automated countOrdered By: PROVIDER TEMP on 06-25-2022 Nucleated RBC Auto Ql (Bld) 0.3 /100{WBC} 0-0.5 [facility] Platelet mean volume Auto (B ld) [Entitic vol]Ordered By: PROVIDER TEMP on 06-25-2022 Platelet mean volume (Bld) [Entitic vol] 7.8 fL 6.3-10.7 [facility] Platelets Auto (Bld) [#/Vol] Ordered By: PROVIDER TEMP on 06-25-2022 Platelets (Bld) [#/Vol] 182 10*3/uL 150-450 [facility] Protein Auto test strip (U) [Mass/Vol]Ordered By: Michael Cerda on 06-25-2022 Protein (U) [Mass/Vol] Trace mg/dL Negative [facility] Protein [Mass/volume] in Ser um or PlasmaOrdered By: PROVIDER TEMP on 06-25-2022 Protein [Mass/Vol] 6.0 g/dL 6.1-7.9 [facility] RBC Auto (Bld) [#/Vol]Ordere d By: PROVIDER TEMP on 06-25-2022 RBC (Bld) [#/Vol] 3.14 10*6/uL 3.60-5.00 [facility] Serum or plasma alanine cox otransferase measurement without P-5'-P (enzymatic activiOrdered By: PROVIDER TEMP on 06-25-2022 ALT No additional P-5'-P [Catalytic activity/Vol] 10 U/L 10-60 [facility] Serum or plasma albumin/glob ulin mass ratioOrdered By: PROVIDER TEMP on 06-25-2022 Albumin/Globulin [Mass ratio] 0.8 {ratio} [facility] Serum or plasma alkaline sam sphatase measurement (enzymatic activity/volume)Ordered By: PROVIDER TEMP on 06-25-2022 ALP [Catalytic activity/Vol] 77 U/L 32-92 [facility] Serum or plasma anion gap de terminationOrdered By: PROVIDER TEMP on 06-25-2022 Anion gap [Moles/Vol] 15.1 mmol/L 6.0-15.0 [facility] Serum or plasma aspartate am inotransferase measurement (enzymatic activity/volume)Ordered By: PROVIDER TEMP on 06-25-2022 AST [Catalytic activity/Vol] 20 U/L 10-42 [facility] Serum or plasma calcium katie urement (mass/volume)Ordered By: PROVIDER TEMP on 06-25-2022 Calcium [Mass/Vol] 9.3 mg/dL 8.2-10.2 [facility] Serum or plasma chloride victorino surement (moles/volume)Ordered By: PROVIDER TEMP on 06-25-2022 Chloride [Moles/Vol] 107 mmol/L 95-114 [facility] Serum or plasma glucose katie urement (mass/volume)Ordered By: PROVIDER TEMP on 06-25-2022 Glucose [Mass/Vol] 72 mg/dL 70-100 [facility] Comment on above: ADA recommended refe rence rangeRandom Glucose Reference Range is dependent on time and content of last meal. Glucose of more than 200 mg/dL in a nonstressed, ambulatory subject supports the diagnosis of Diabetes Mellitus. Serum or plasma potassium me asurement (moles/volume)Ordered By: PROVIDER TEMP on 06-25-2022 Potassium [Moles/Vol] 3.6 mmol/L 3.5-5.1 [facility] Serum or plasma sodium measu rement (moles/volume)Ordered By: PROVIDER TEMP on 06-25-2022 Sodium [Moles/Vol] 137 mmol/L 136-146 [facility] Serum or plasma total biliru bin measurement (mass/volume)Ordered By: PROVIDER TEMP on 06-25-2022 Bilirubin [Mass/Vol] 0.7 mg/dL 0.3-1.2 [facility] Serum or plasma total carbon dioxide measurement (moles/volume)Ordered By: PROVIDER TEMP on 06-25-2022 CO2 [Moles/Vol] 18.5 mmol/L 22.0-30.0 [facility] Serum or plasma urea nitroge n measurement (mass/volume)Ordered By: PROVIDER TEMP on 06-25-2022 Urea nitrogen [Mass/Vol] 3 mg/dL 9-23 [facility] Specific gravity Auto test s trip (U) [Rel density]Ordered By: Michael Cerda on 06-25-2022 Specific gravity (U) [Rel density] 1.016 1.001-1.030 [facility] Squamous epithelial cells de tection in urine sediment by light microscopyOrdered By: Michael Cerda on 06-25-2022 Epithelial cells.squamous LM Ql (Urine sed) 10-19 [HPF] 0-2 [facility] Troponin I.cardiac [Mass/vol ume] in Serum or Plasma by High sensitivity methodOrdered By: Michael Cerda on 06-25-2022 Troponin I.cardiac High sensitivity method [Mass/Vol] 6 pg/mL 0-15 [facility] Urine bacteria detection by automated methodOrdered By: Michael Cerda on 06-25-2022 Bacteria Auto Ql (U) 1+ None Seen [facility] Urine clarity by refractomet ry automatedOrdered By: Michael Cerda on 06-25-2022 Clarity Refractometry automated (U) Turbid Clear [facility] Urine culture routineOrdered By: Michael Cerda on 06-25-2022 Bacteria identified Cx Nom (U) 2 Days [facility] Urine glucose measurement by automated test strip (mass/volume)Ordered By: Michael Cerda on 06-25-2022 Glucose Auto test strip (U) [Mass/Vol] Normal mg/dL Normal [facility] Urine hemoglobin detection b y automated test stripOrdered By: Michael Cerda on 06-25-2022 Hemoglobin Auto test strip Ql (U) Trace Negative [facility] Urine leukocyte esterase det ection by automated test stripOrdered By: Michael Cerda on 06-25-2022 Leukocyte esterase Auto test strip Ql (U) 4+ Negative [facility] Urobilinogen Auto test strip (U) [Mass/Vol]Ordered By: Michael Cerda on 06-25-2022 Urobilinogen (U) [Mass/Vol] Normal mg/dL Normal [facility] WBC Auto (Bld) [#/Vol]Ordere d By: CIERA CARABALLO on 06-25-2022 WBC (Bld) [#/Vol] 10.5 10*3/uL 3.8-11.6 [facility] Yeast detection in urine sed iment by light microscopyOrdered By: Michael Cerda on 06-25-2022 Yeast LM Ql (Urine sed) None seen [HPF] None Seen [facility] pH Auto test strip (U)Ordere d By: Michael Cerda on 06-25-2022 pH (U) 6.0 [pH] 5.0-9.0 [facility] GLUCOSE BLOODon 04-28-2022 Glucose [Mass/Vol] 83 mg/dL Normal 74-106 [facility] Comment on above: Performed By: #### G MINERVA, LIPID #### [facility] [address] [address] [address] Kinjal Rivers LIPID PROFILEon 04-28-2022 CHOL-HDL RATIO NORM SEE BELOW Normal [facility] Comment on above: Result Comment: 3.3 - 4.4 LOW RISK 4.4 - 7.1 AVERAGE RISK 7.1 - 11.0 MODERATE RISK >11.0 HIGH RISK Performed By: #### G MINERVA, LIPID #### [facility] [address] [place] [address] Dr. Kinjal Rivers Cholesterol [Mass/Vol] 232 mg/dL Critically high <=200 [facility] Comment on above: Performed By: #### G MINERVA, LIPID #### [facility] [address] [place] [address] Dr. Kinjal Rivers Cholesterol in HDL [Mass/Vol] 92 mg/dL Critically high 40-60 [facility] Comment on above: Performed By: #### G MINERVA, LIPID #### [facility] [address] [address] [address] Kinjal Rivers Cholesterol in LDL [Mass/Vol] 115.2 mg/dL Normal [facility] Comment on above: Performed By: #### G MINERVA, LIPID #### [facility] [address] [address] [address] Kinjal Rivers Cholesterol.total/Chol esterol in HDL [Mass ratio] 2.5 {ratio} Normal [facility] Comment on above: Performed By: #### G MINERVA, LIPID #### [facility] [address] [address] [address] Kinjal Rivers HDL NORMAL > or = 60 mg/dl - LO W CARDIOVASCULAR RISK <40 mg/dl - HIGH CARDIOVASCULAR RISK Normal [facility] Comment on above: Performed By: #### G MINERVA, LIPID #### [facility] [address] [address] [address] Kinjal Rivers LDL CALC NORMAL SEE BELOW Normal [facility] Comment on above: Result Comment: <100 mg/dl OPTIMAL 100 - 129 mg/dl NEAR OR ABOVE OPTIMAL 130 - 159 mg/dl BORDERLINE HIGH 160 - 189 mg/dl HIGH >190 mg/dl VERY HIGH Performed By: #### G MINERVA, LIPID #### [facility] [address] [address] [address] Kinjal Rivers Triglyceride [Mass/Vol] 124 mg/dL Normal <=150 [facility] Comment on above: Performed By: #### G MINERVA, LIPID #### [facility] [address] [address] [address] Kinjal Rivers VLDL CALC 24.8 mg/dL Normal [facility] Comment on above: Performed By: #### G MINERVA, LIPID #### [facility] [address] [address] [address] Kinjal Rivers Echocardiogramon 02-13-[address], [address] [place] [address] TRANSTHORACIC ECHOCARDIOGRAM REPORT Patient Name: MARICARMEN Monreal Physician: [id number] Tracee ANDERSON MD Study Date: 02/13/2022 Referring [id number] RITA OLIVIA Physician: MRN/PID: [id number] PCP: Viktor Sotelo Accession/Order#: [id number] Department [facility] Location: Date of : 1980 Fellow: Gender: F Nurse: Admit Date: Crew Foreman: Georgia Grajeda RDCS, T Height: 167.64 cm CC Report to: Weight: 102.97 kg Study Type: Echocardiogram BSA: 2.11 m2 Blood Pressure: 114 /70 mmHg Diagnosis/ICD: I47.1-Supraventricular tachycardia; R06.02-Shortness of breath; I49.5-Sick sinus syndrome Indication: Abnormal EKG-Complete Heart Block, Pacemaker, History of Syncope, Obesity, Seizure Disorder, Pt is 13 weeks Procedure/CPT: Echo Complete w Full [id number] Study Detail: The following Echo studies were [...] 0.8 m/s (0.6-0.9m/s) PV Max P.9 mmHg [id number] Tracee Moore MD Electronically signed on 02/13/2022 at 5:36:08 PM Final Normal [facility] Echocardiography Please click on the link to view the study images Normal [facility] [employer] [address] [place] Work Phone: Falls Screening (Age 18+)on 02-13-2022 Fall risk assessment a) No falls within the last year [facility] [address] [place] Work Phone: Urine culture routineOrdered By: Raymond Oconnor on 01-22-2022 Bacteria identified Cx Nom (U) 2 Days [facility] Albumin [Mass/volume] in Ser um or PlasmaOrdered By: Raymond Oconnor on 01-20-2022 Albumin [Mass/Vol] 3.4 g/dL 3.2-5.5 [facility] Automated erythrocytes count in urine sediment (number/area)Ordered By: Raymond Oconnor on 01-20-2022 RBC Auto (Urine sed) [#/Area] 3-4 [HPF] 0-4 [facility] Automated leukocytes count i n urine sediment (number/area)Ordered By: Raymond Oconnor on 01-20-2022 WBC Auto (Urine sed) [#/Area] 20-49 [HPF] 0-4 [facility] Automated urine sediment claudia cium oxalate crystal count by microscopy (number/high powOrdered By: Raymond Oconnor on 01-20-2022 Calcium oxalate crystals LM.HPF (Urine sed) [#/Area] 4+ [HPF] [facility] Basophils Auto (Bld) [#/Vol] Ordered By: Raymond Oconnor on 01-20-2022 Basophils (Bld) [#/Vol] 0.0 10*3/uL 0.0-0.2 [facility] Basophils/100 WBC Auto (Bld) Ordered By: Ryamond Oconnor on 01-20-2022 Basophils/100 WBC (Bld) 0.4 % . [facility] Bilirubin Auto test strip Ql (U)Ordered By: Raymond Oconnor on 01-20-2022 Bilirubin Ql (U) Negative Negative [facility] Blood hemoglobin measurement (mass/volume)Ordered By: Raymond Oconnor on 01-20-2022 Hemoglobin (Bld) [Mass/Vol] 10.6 g/dL 11.8-15.4 [facility] Blood leukocytes automated c ount (number/volume)Ordered By: Raymond Oconnor on 01-20-2022 WBC (Bld) [#/Vol] 6.8 10*3/uL 4.5-11.0 [facility] Creatinine and Glomerular fi ltration rate.predicted panel (S/P/Bld)Ordered By: Raymond Oconnor on 01-20-2022 Creatinine [Mass/Vol] 0.62 mg/dL 0.44-1.03 [facility] Eosinophils Auto (Bld) [#/Vo l]Ordered By: Raymond Oconnor on 01-20-2022 Eosinophils (Bld) [#/Vol] 0.1 10*3/uL 0.0-0.45 [facility] Eosinophils/100 WBC Auto (Bl d)Ordered By: Raymond Oconnor on 01-20-2022 Eosinophils/100 WBC (Bld) 1.5 % . [facility] Erythrocyte distribution wid th Auto (RBC) [Ratio]Ordered By: Raymond Oconnor on 01-20-2022 Erythrocyte distribution width (RBC) [Ratio] 18.2 % 11.9-15.3 [facility] Estimated glomerular filtrat ion rate (GFR) non- AmericanOrdered By: Raymond Oconnor on 01-20-2022 GFR/1.73 sq M.predicted among non-blacks MDRD (S/P/Bld) [Vol rate/Area] > 60 mL/Min [facility] Globulin Calc (S) [Mass/Vol] Ordered By: Raymond Oconnor on 01-20-2022 Globulin (S) [Mass/Vol] 3.1 g/dL [facility] Hematocrit Auto (Bld) [Volum e fraction]Ordered By: Raymond Oconnor on 01-20-2022 Hematocrit (Bld) [Volume fraction] 33.6 % 34.0-46.4 [facility] Ketones Auto test strip (U) [Mass/Vol]Ordered By: Raymond Oconnor on 01-20-2022 Ketones (U) [Mass/Vol] Negative Negative [facility] - Hematology and Cell countsOrdered By: Raymond Oconnor on 01-20-2022 Nucleated RBC/100 WBC (Bld) [Ratio] 0.0 % 0-0.5 [facility] - UrinalysisOrder ed By: Raymond Oconnor on 01-20-2022 Hyaline casts LM Ql (Urine sed) 0-8 [LPF] 0-8 [facility] Lymphocytes Auto (Bld) [#/Vo l]Ordered By: Raymond Oconnor on 01-20-2022 Lymphocytes (Bld) [#/Vol] 1.3 10*3/uL 1.00-4.8 [facility] Lymphocytes/100 WBC Auto (Bl d)Ordered By: Raymond Oconnor on 01-20-2022 Lymphocytes/100 WBC (Bld) 19.1 % . [facility] MCH Auto (RBC) [Entitic mass ]Ordered By: Raymond Oconnor on 01-20-2022 MCH (RBC) [Entitic mass] 26.9 pg 24.7-34.3 [facility] MCHC Auto (RBC) [Mass/Vol]Or dered By: Raymond Oconnor on 01-20-2022 MCHC (RBC) [Mass/Vol] 31.7 g/dL 32.0-35.0 [facility] MCV Auto (RBC) [Entitic vol] Ordered By: Raymond Oconnor on 01-20-2022 MCV (RBC) [Entitic vol] 84.8 fL 80-100 [facility] Monocytes Auto (Bld) [#/Vol] Ordered By: Raymond Oconnor on 01-20-2022 Monocytes (Bld) [#/Vol] 0.4 10*3/uL 0.0-0.8 [facility] Monocytes/100 WBC Auto (Bld) Ordered By: Raymond Oconnor on 01-20-2022 Monocytes/100 WBC (Bld) 6.6 % . [facility] Neutrophils Auto (Bld) [#/Vo l]Ordered By: Raymond Oconnor on 01-20-2022 Neutrophils (Bld) [#/Vol] 4.9 10*3/uL 1.8-7.7 [facility] Neutrophils/100 WBC Auto (Bl d)Ordered By: Raymond Oconnor on 01-20-2022 Neutrophils/100 WBC (Bld) 72.4 % . [facility] No Panel InformationOrdered By: Raymond Oconnor on 01-20-2022 Estimated GFR () > 60 mL/Min [facility] Comment on above: GFR estimated refere nce range: According to KDOQI guidelines, <60 ml/min/1.73m2 is sufficient to diagnose a patient with chronic kidney disease. Pharmacy Creatinine Clearance (Chem 147.20 [facility] Platelet mean volume Auto (B ld) [Entitic vol]Ordered By: Raymond Oconnor on 01-20-2022 Platelet mean volume (Bld) [Entitic vol] 8.1 fL 6.3-10.7 [facility] Platelets Auto (Bld) [#/Vol] Ordered By: Raymond Oconnor on 01-20-2022 Platelets (Bld) [#/Vol] 214 10*3/uL 150-450 [facility] Protein Auto test strip (U) [Mass/Vol]Ordered By: Raymond Oconnor on 01-20-2022 Protein (U) [Mass/Vol] Negative Negative [facility] Protein [Mass/volume] in Ser um or PlasmaOrdered By: Raymond Oconnor on 01-20-2022 Protein [Mass/Vol] 6.5 g/dL 6.1-7.9 [facility] RBC Auto (Bld) [#/Vol]Ordere d By: Raymond Oconnor on 01-20-2022 RBC (Bld) [#/Vol] 3.95 10*6/uL 3.60-5.00 [facility] Serum or plasma alanine cox otransferase measurement without P-5'-P (enzymatic activiOrdered By: Raymond Oconnor on 01-20-2022 ALT No additional P-5'-P [Catalytic activity/Vol] 10 U/L 10-60 [facility] Serum or plasma albumin/glob ulin mass ratioOrdered By: Raymond Oconnor on 01-20-2022 Albumin/Globulin [Mass ratio] 1.1 {ratio} [facility] Serum or plasma alkaline sam sphatase measurement (enzymatic activity/volume)Ordered By: Raymond Oconnor on 01-20-2022 ALP [Catalytic activity/Vol] 51 U/L 32-92 [facility] Serum or plasma aspartate am inotransferase measurement (enzymatic activity/volume)Ordered By: Raymond Oconnor on 01-20-2022 AST [Catalytic activity/Vol] 16 U/L 10-42 [facility] Serum or plasma calcium katie urement (mass/volume)Ordered By: Raymond Oconnor on 01-20-2022 Calcium [Mass/Vol] 9.4 mg/dL 8.2-10.2 [facility] Serum or plasma chloride victorino surement (moles/volume)Ordered By: Raymond Oconnor on 01-20-2022 Chloride [Moles/Vol] 103 mmol/L 95-114 [facility] Serum or plasma glucose katie urement (mass/volume)Ordered By: Raymond Oconnor on 01-20-2022 Glucose [Mass/Vol] 82 mg/dL 70-100 [facility] Comment on above: ADA recommended refe rence range Random Glucose Reference Range is dependent on time and content of last meal. Glucose of more than 200 mg/dL in a nonstressed, ambulatory subject supports the diagnosis of Diabetes Mellitus. Serum or plasma potassium me asurement (moles/volume)Ordered By: Raymond Oconnor on 01-20-2022 Potassium [Moles/Vol] 4.0 mmol/L 3.5-5.1 [facility] Serum or plasma sodium measu rement (moles/volume)Ordered By: Raymond Oconnor on 01-20-2022 Sodium [Moles/Vol] 134 mmol/L 136-146 [facility] Serum or plasma total biliru bin measurement (mass/volume)Ordered By: Raymond Oconnor on 01-20-2022 Bilirubin [Mass/Vol] 0.7 mg/dL 0.3-1.2 [facility] Serum or plasma total carbon dioxide measurement (moles/volume)Ordered By: Raymond Oconnor on 01-20-2022 CO2 [Moles/Vol] 19.6 mmol/L 22.0-30.0 [facility] Serum or plasma urea nitroge n measurement (mass/volume)Ordered By: Raymond Oconnor on 01-20-2022 Urea nitrogen [Mass/Vol] 8 mg/dL 9-23 [facility] Squamous epithelial cells de tection in urine sediment by light microscopyOrdered By: Raymond Oconnor on 01-20-2022 Epithelial cells.squamous LM Ql (Urine sed) 0-1 [HPF] 0-2 [facility] Urine appearanceOrdered By: Raymond Oconnor on 01-20-2022 Appearance (U) Clear Clear [facility] Urine bacteria detection by automated methodOrdered By: Raymond Oconnor on 01-20-2022 Bacteria Auto Ql (U) None seen None Seen [facility] Urine colorOrdered By: Chela Oconnor on 01-20-2022 Color (U) Yellow Yellow [facility] Urine glucose measurement by automated test strip (mass/volume)Ordered By: Raymond Oconnor on 01-20-2022 Glucose Auto test strip (U) [Mass/Vol] Normal mg/dL Normal [facility] Urine hemoglobin detection b y automated test stripOrdered By: Raymond Oconnor on 01-20-2022 Hemoglobin Auto test strip Ql (U) Negative Negative [facility] Urine leukocyte esterase det ection by automated test stripOrdered By: Raymond Oconnor on 01-20-2022 Leukocyte esterase Auto test strip Ql (U) 2+ Negative [facility] Urine nitrite detection by a utomated test stripOrdered By: Raymond Oconnor on 01-20-2022 Nitrite Auto test strip Ql (U) Negative Negative [facility] Urine sediment crystal ident ification by light microscopyOrdered By: Raymond Oconnor on 01-20-2022 Crystals LM Nom (Urine sed) None seen [HPF] [facility] Urobilinogen Auto test strip (U) [Mass/Vol]Ordered By: Raymond Oconnor on 01-20-2022 Urobilinogen (U) [Mass/Vol] Normal mg/dL Normal [facility] pH Auto test strip (U)Ordere d By: Raymond Oconnor on 01-20-2022 pH (U) 1.030 [pH] 1.001-1.030 [facility] pH (U) 6.0 [pH] 5.0-9.0 [facility] Tobacco Screening.on 022 Fall risk assessment a) No falls within the last year -[facility] [employer] Work Phone: Tobacco use status CP b) No [facility] [employer] Work Phone: Tobacco Screening. Yes [facility] [employer] Work Phone: Serum or plasma beta choriog onadotropin measurement (units/volume)Ordered By: Eduardo Swain on 12-16-2021 HCG.beta subunit Qn 3876.00 m[IU]/mL [facility] Comment on above: Approximate Approxim ate hCG Gestational Age Range (mIU/ml) (weeks) 0.2-1 5-50 1-2 50-500 2-3 100-5,000 3-4 500-10,000 4-5 1,000-50,000 5-6 10,000-100,000 6-8 15,000-200,000 8-12 10,000-100,000 Cholesterol [Mass/volume] in Serum or PlasmaOrdered By: Eduardo Swain on 12-11-2021 Cholesterol [Mass/Vol] 190 mg/dL 140-200 [facility] Comment on above: Chol less than 200 m g/dl low risk Chol 201-239 mg/dl borderline risk Chol 240 mg/dl and greater high risk Cholesterol in LDL Calc [Mas s/Vol]Ordered By: Eduardo Swain on 12-11-2021 Cholesterol in LDL [Mass/Vol] 103 mg/dL 0-100 [facility] Comment on above: LDL ATP III CLASSIFI CATION LDL less than 100 mg/dL Optimal LDL 100-129 mg/dL Near or above optimal LDL 130-159 mg/dL Borderline high LDL 160-189 mg/dL High LDL greater than 189 mg/dL Very high Cholesterol in VLDL Calc [Ma ss/Vol]Ordered By: Eduardo Swain on 12-11-2021 Cholesterol in VLDL [Mass/Vol] 9 mg/dL [facility] No Panel InformationOrdered By: Eduardo Swain on 12-11-2021 25-Hydroxy Vitamin D Total 40.6 ng/mL 30-100 [facility] Comment on above: VITAMIN D STATUS [...] HDL [Mass/Vol] 78 mg/dL 35-85 [facility] Comment on above: HDL CHOL ATP-III CLA SSIFICATION Cardiovascular Risk HDL > or equal to 60 mg/dL LOW HDL < 40 mg/dL HIGH Serum or plasma total choles terol/high density lipoprotein (HDL) cholesterol mass ratOrdered By: Eduardo Swain on 12-11-2021 Cholesterol.total/Chol esterol in HDL [Mass ratio] 2.4 {ratio} <5.0 [facility] TSH DL <= 0.005 mIU/L QnOrde red By: Eduardo Swain on 12-11-2021 TSH Qn 2.40 m[IU]/L 0.45-5.33 [facility] Triglyceride [Mass/volume] i n Serum or PlasmaOrdered By: Eduardo Swain on 12-11-2021 Triglyceride [Mass/Vol] 47 mg/dL 35-149 [facility] [facility] Comment on above: TRIG ATP III [...] HCG.beta subunit Qn 315.21 m[IU]/mL [facility] Comment on above: Approximate Approxim ate hCG Gestational Age Range (mIU/ml) (weeks) 0.2-1 5-50 1-2 50-500 2-3 100-5,000 3-4 500-10,000 4-5 1,000-50,000 5-6 10,000-100,000 6-8 15,000-200,000 8-12 10,000-100,000 Urine culture routineOrdered By: Cornell Mcnair on 12-10-2021 Bacteria identified Cx Nom (U) Strep. agalactiae Grp B [facility] Amphetamine Screen Ql (U)Ord ered By: Cornell Mcnair on 12-08-2021 Amphetamines Ql (U) Negative Negative [facility] Automated erythrocytes count in urine sediment (number/area)Ordered By: Cornell Mcnair on 12-08-2021 RBC Auto (Urine sed) [#/Area] 10-19 [HPF] 0-4 [facility] Automated leukocytes count i n urine sediment (number/area)Ordered By: Cornell Mcnair on 12-08-2021 WBC Auto (Urine sed) [#/Area] 50-100 [HPF] 0-4 [facility] Automated urine hyaline cast s count (number/volume)Ordered By: Cornell Mcnair on 12-08-2021 Hyaline casts Auto (U) [#/Vol] 0-1 [LPF] 0-1 [facility] Automated urine sediment claudia cium oxalate crystal count by microscopy (number/high powOrdered By: Cornell Mcnair on 12-08-2021 Calcium oxalate crystals LM.HPF (Urine sed) [#/Area] 3+ [HPF] [facility] Barbiturates [Presence] in U rineOrdered By: Cornell Mcnair on 12-08-2021 Barbiturates Ql (U) Negative Negative [facility] Basophils Auto (Bld) [#/Vol] Ordered By: Cornell Mcnair on 12-08-2021 Basophils (Bld) [#/Vol] 0.0 10*3/uL 0.0-0.2 [facility] Basophils/100 WBC Auto (Bld) Ordered By: Cornell Mcnair on 12-08-2021 Basophils/100 WBC (Bld) 0.6 % . [facility] Benzodiazepines [Presence] i n UrineOrdered By: Cornell Mcnair on 12-08-2021 Benzodiazepines Ql (U) Negative Negative [facility] Bilirubin Test strip Ql (U)O rdered By: Cornell Mcnair on 12-08-2021 Bilirubin Ql (U) Negative Negative [facility] Blood hemoglobin measurement (mass/volume)Ordered By: Cornell Mcnair on 12-08-2021 Hemoglobin (Bld) [Mass/Vol] 9.6 g/dL 11.8-15.4 [facility] Blood leukocytes automated c ount (number/volume)Ordered By: Cornell Mcnair on 12-08-2021 WBC (Bld) [#/Vol] 6.9 10*3/uL 4.5-11.0 [facility] Body fluid albumin measureme nt (mass/volume)Ordered By: Cornell Mcnair on 12-08-2021 Albumin (Body fld) [Mass/Vol] 3.4 g/dL 3.2-5.5 [facility] COVID-19 SOFIAOrdered By: Julia Mcnair on 12-08-2021 SARS-CoV+SARS-CoV-2 (COVID-19) Ag IA.rapid Ql (Resp) Negative Negative [facility] Comment on above: This is a duplicate Roshni SARS Antigen (DIEUDONNE) result to be used for statistical tracking purpose only. Cannabinoids [Presence] in U rine by Screen methodOrdered By: Cornell Mcnair on 12-08-2021 Cannabinoids Screen Ql (U) Negative Negative [facility] Comment on above: These are unconfirme [...] None seen [LPF] None Seen [facility] Color Auto (U)Ordered By: Julia Mcnair on 12-08-2021 Color (U) Yellow Yellow [facility] Creatinine and Glomerular fi ltration rate.predicted panel (S/P/Bld)Ordered By: Cornell Mcnair on 12-08-2021 Creatinine [Mass/Vol] 0.78 mg/dL 0.44-1.03 [facility] Eosinophils Auto (Bld) [#/Vo l]Ordered By: Cornell Mcnair on 12-08-2021 Eosinophils (Bld) [#/Vol] 0.2 10*3/uL 0.0-0.45 [facility] Eosinophils/100 WBC Auto (Bl d)Ordered By: Cornell Mcnair on 12-08-2021 Eosinophils/100 WBC (Bld) 2.6 % . [facility] Erythrocyte distribution wid th Auto (RBC) [Ratio]Ordered By: Cornell Mcnair on 12-08-2021 Erythrocyte distribution width (RBC) [Ratio] 15.5 % 11.9-15.3 [facility] Estimated glomerular filtrat ion rate (GFR) non- AmericanOrdered By: Cornell Mcnair on 12-08-2021 GFR/1.73 sq M.predicted among non-blacks MDRD (S/P/Bld) [Vol rate/Area] > 60 mL/Min [facility] Globulin Calc (S) [Mass/Vol] Ordered By: Cornell Mcnair on 12-08-2021 Globulin (S) [Mass/Vol] 3.1 g/dL [facility] HCG ( test) IA.rapi d Ql (U)Ordered By: Cornell Mcnair on 12-08-2021 HCG ( test) Ql (U) Positive [facility] Hematocrit Auto (Bld) [Volum e fraction]Ordered By: Cornell Mcnair on 12-08-2021 Hematocrit (Bld) [Volume fraction] 30.1 % 34.0-46.4 [facility] Ketones Auto test strip (U) [Mass/Vol]Ordered By: Cornell Mcnair on 12-08-2021 Ketones (U) [Mass/Vol] Trace Negative [facility] Laboratory - Drug toxicology Ordered By: Cornell Mcnair on 12-08-2021 Opiates Ql (U) Negative Negative [facility] Laboratory - Hematology and Cell countsOrdered By: Cornell Mcnair on 12-08-2021 Nucleated RBC/100 WBC (Bld) [Ratio] 0.0 % 0-0.5 [facility] Lymphocytes Auto (Bld) [#/Vo l]Ordered By: Cornell Mcnair on 12-08-2021 Lymphocytes (Bld) [#/Vol] 1.5 10*3/uL 1.00-4.8 [facility] Lymphocytes/100 WBC Auto (Bl d)Ordered By: Cornell Mcnair on 12-08-2021 Lymphocytes/100 WBC (Bld) 22.3 % . [facility] MCH Auto (RBC) [Entitic mass ]Ordered By: Cornell Mcnair on 12-08-2021 MCH (RBC) [Entitic mass] 26.3 pg 24.7-34.3 [facility] MCHC Auto (RBC) [Mass/Vol]Or dered By: Cornell Mcnair on 12-08-2021 MCHC (RBC) [Mass/Vol] 32.0 g/dL 32.0-35.0 [facility] MCV Auto (RBC) [Entitic vol] Ordered By: Cornell Mcnair on 12-08-2021 MCV (RBC) [Entitic vol] 82.4 fL 80-100 [facility] Monocytes Auto (Bld) [#/Vol] Ordered By: Cornell Mcnair on 12-08-2021 Monocytes (Bld) [#/Vol] 0.4 10*3/uL 0.0-0.8 [facility] Monocytes/100 WBC Auto (Bld) Ordered By: Cornell Mcnair on 12-08-2021 Monocytes/100 WBC (Bld) 6.5 % . [facility] Mucus LM Ql (Urine sed)Order ed By: Cornell Mcnair on 12-08-2021 Mucus Ql (Urine sed) 2+ [LPF] [facility] Neutrophils Auto (Bld) [#/Vo l]Ordered By: Cornell Mcnair on 12-08-2021 Neutrophils (Bld) [#/Vol] 4.7 10*3/uL 1.8-7.7 [facility] Neutrophils/100 WBC Auto (Bl d)Ordered By: Cornell Mcnair on 12-08-2021 Neutrophils/100 WBC (Bld) 68.0 % . [facility] Nitrite Test strip Ql (U)Ord ered By: Cornell Mcnair on 12-08-2021 Nitrite Ql (U) Negative Negative [facility] No Panel InformationOrdered By: Cornell Mcnair on 12-08-2021 Estimated GFR () > 60 mL/Min [facility] Comment on above: GFR estimated refere nce range: According to KDOQI guidelines, <60 ml/min/1.73m2 is sufficient to diagnose a patient with chronic kidney disease. Pharmacy Creatinine Clearance (Chem 115.38 [facility] SARS Antigen (LFIA) [facility] Phencyclidine Screen Ql (U)O rdered By: Cornell Mcnair on 12-08-2021 Phencyclidine Ql (U) Negative Negative [facility] Platelet mean volume Auto (B ld) [Entitic vol]Ordered By: Cornell Mcnair on 12-08-2021 Platelet mean volume (Bld) [Entitic vol] 7.2 fL 6.3-10.7 [facility] Platelets Auto (Bld) [#/Vol] Ordered By: Cornell Mcnair on 12-08-2021 Platelets (Bld) [#/Vol] 229 10*3/uL 150-450 [facility] Protein Auto test strip (U) [Mass/Vol]Ordered By: Cornell Mcnair on 12-08-2021 Protein (U) [Mass/Vol] Negative Negative [facility] Protein [Mass/volume] in Ser um or PlasmaOrdered By: Cornell Mcnair on 12-08-2021 Protein [Mass/Vol] 6.5 g/dL 6.1-7.9 [facility] RBC Auto (Bld) [#/Vol]Ordere d By: Cornell Mcnair on 12-08-2021 RBC (Bld) [#/Vol] 3.65 10*6/uL 3.60-5.00 [facility] Serum or plasma alanine cox otransferase measurement without P-5'-P (enzymatic activiOrdered By: Cornell Mcnair on 12-08-2021 ALT No additional P-5'-P [Catalytic activity/Vol] 11 U/L 10-60 [facility] Serum or plasma albumin/glob ulin mass ratioOrdered By: Cornell Mcnair on 12-08-2021 Albumin/Globulin [Mass ratio] 1.1 {ratio} [facility] Serum or plasma alkaline sam sphatase measurement (enzymatic activity/volume)Ordered By: Cornell Mcnair on 12-08-2021 ALP [Catalytic activity/Vol] 64 U/L 32-92 [facility] Serum or plasma aspartate am inotransferase measurement (enzymatic activity/volume)Ordered By: Cornell Mcnair on 12-08-2021 AST [Catalytic activity/Vol] 22 U/L 10-42 [facility] Serum or plasma calcium katie urement (mass/volume)Ordered By: Cornell Mcnair on 12-08-2021 Calcium [Mass/Vol] 8.9 mg/dL 8.2-10.2 [facility] Serum or plasma chloride victorino surement (moles/volume)Ordered By: Cornell Mcnair on 12-08-2021 Chloride [Moles/Vol] 106 mmol/L 95-114 [facility] Serum or plasma ethanol katie urement (mass/volume)Ordered By: Cornell Mcnair on 12-08-2021 Ethanol [Mass/Vol] mg/dL [facility] Ethanol [Mass/Vol] TNP [facility] Comment on above: Test not performed Serum or plasma glucose katie urement (mass/volume)Ordered By: Cornell Mcnair on 12-08-2021 Glucose [Mass/Vol] 86 mg/dL 70-100 [facility] Comment on above: ADA recommended refe rence range Random Glucose Reference Range is dependent on time and content of last meal. Glucose of more than 200 mg/dL in a nonstressed, ambulatory subject supports the diagnosis of Diabetes Mellitus. Serum or plasma potassium me asurement (moles/volume)Ordered By: Cornell Mcnair on 12-08-2021 Potassium [Moles/Vol] 3.9 mmol/L 3.5-5.1 [facility] Serum or plasma sodium measu rement (moles/volume)Ordered By: Cornell Mcnair on 12-08-2021 Sodium [Moles/Vol] 137 mmol/L 136-146 [facility] Serum or plasma total biliru bin measurement (mass/volume)Ordered By: Cornell Mcnair on 12-08-2021 Bilirubin [Mass/Vol] 0.4 mg/dL 0.3-1.2 [facility] Serum or plasma total carbon dioxide measurement (moles/volume)Ordered By: Cornell Mcnair on 12-08-2021 CO2 [Moles/Vol] 23.8 mmol/L 22.0-30.0 [facility] Serum or plasma urea nitroge n measurement (mass/volume)Ordered By: Cornell Mcnair on 12-08-2021 Urea nitrogen [Mass/Vol] 9 mg/dL 9-23 [facility] Specific gravity Auto test s trip (U) [Rel density]Ordered By: Cornell Mcnair on 12-08-2021 Specific gravity (U) [Rel density] 1.024 1.001-1.030 [facility] Squamous epithelial cells de tection in urine sediment by light microscopyOrdered By: Cornell Mcnair on 12-08-2021 Epithelial cells.squamous LM Ql (Urine sed) 10-19 [HPF] 0-2 [facility] Urine bacteria detection by automated methodOrdered By: Cornell Mcnair on 12-08-2021 Bacteria Auto Ql (U) None seen None Seen [facility] Urine clarity by refractomet ry automatedOrdered By: Cornell Mcnair on 12-08-2021 Clarity Refractometry automated (U) Cloudy Clear [facility] Urine cocaine detectionOrder ed By: Cornell Mcnair on 12-08-2021 Cocaine Ql (U) Negative Negative [facility] Urine glucose measurement by automated test strip (mass/volume)Ordered By: Cornell Mcnair on 12-08-2021 Glucose Auto test strip (U) [Mass/Vol] Normal mg/dL Normal [facility] Urine hemoglobin detection b y automated test stripOrdered By: Cornell Mcnair on 12-08-2021 Hemoglobin Auto test strip Ql (U) Negative Negative [facility] Urine leukocyte esterase det ection by automated test stripOrdered By: Cornell Mcnair on 12-08-2021 Leukocyte esterase Auto test strip Ql (U) 3+ Negative [facility] Urobilinogen Auto test strip (U) [Mass/Vol]Ordered By: Cornell Mcnair on 12-08-2021 Urobilinogen (U) [Mass/Vol] Normal mg/dL Normal [facility] Yeast detection in urine sed iment by light microscopyOrdered By: Cornell Mcnair on 12-08-2021 Yeast LM Ql (Urine sed) 1+ [HPF] None Seen [facility] pH Auto test strip (U)Ordere d By: Cornell Mcnair on 12-08-2021 pH (U) 5.0 [pH] 5.0-9.0 [facility] CNPNon 09-18-2021 CNPN Telephone ([facility]) ----- MARICARMEN ANDERSON ([id number]) 1980 F T Date Time Provider Department 09/18/21 CLEMENTE ENG [facility] During your visit today, we recorded the following information about you: Uyen Dela Cruz 09/18/2021 9:54 AM Signed patient calling in with complaint of abdominal pain, swelling abdomen, dehydration and vomiting. Patient has not seen you since October 2020. Patient has been identified by name and birthdate.Yes Duration of symptoms: few days Person calling: self Call patient at: at home [phone] (home) [phone] (cell) Was an appointment scheduled: No Closing statement: Symptom Call: Thank you for calling [facility], your call is very important. [...] She states she will go to a [facility] ER because local ER doesn't [...] by KATHI WATERMAN RN on 09/18/21 Normal [facility] MRI CERVICAL SPINE WO IVCONo n [...] vertebrae with counting from the craniocervical junction. Brewery Technician: PSCB Transcribe Date/Time: Nov 13 2020 2:41P Dictated by : KURT MALIN MD This examination was interpreted and the report reviewed and electronically signed by: DHRUV KINGSLEY MD on Nov 13 2020 3:33PM EST [id number] Normal [facility] MRI KIDNEY WO/W IVCONon 05-2 MRI [...] included: axial precontrast T1 weighted in- and [id number], axial and coronal HASTE, axial DWI with [...] NO SUSPICIOUS OR ENHANCING RENAL LESIONS OTHERWISE. Brewery Technician: LISA Transcribe Date/Time: Nov 13 2020 3:28P Dictated by : GAURAV RODRIGUEZ MD This examination was interpreted and the report reviewed and electronically signed by: NACHO BARONE DO on Nov 13 2020 7:26PM EST [id number] Normal [facility] XR CHEST 2V FRONTAL/LATon XR CHEST [...] disease identified in the lungs or mediastinum. Brewery Technician: PSCBernard Transcribe Date/Time: Nov 13 2020 3:36P Dictated by : DESI MAHONEY MD This examination was interpreted and the report reviewed and electronically signed by: DESI MAHONEY MD on Nov 13 2020 3:38PM EST [id number] Normal [facility] Basic Metabolic Panlon 11-12 Anion gap [Moles/Vol] 9 mmol/L Normal 0-[address] [facility] Calcium [Mass/Vol] 8.9 mg/dL Normal 8.5-10.2 [facility] Chloride [Moles/Vol] 112 mmol/L High 97-105 [facility] CO2 [Moles/Vol] 19 mmol/L Low 22-30 [facility] Creatinine [Mass/Vol] 0.73 mg/dL Normal 0.58-0.[address] [facility] eGFR- Amer. >60 Normal [facility] eGFR-All Other Races >60 Normal [facility] Comment on above: Result Comment: eGFR (Estimated [...] GFR. Glucose [Mass/Vol] 89 mg/dL Normal 74-99 [facility] Potassium [Moles/Vol] 3.7 mmol/L Normal 3.7-5.[address] [facility] Sodium [Moles/Vol] 140 mmol/L Normal 136-144 [facility] Urea nitrogen [Mass/Vol] 21 mg/dL Normal 7-21 [facility] Blood Cultureon 11-12-2020 Bacteria identified Cx Nom (Bld) Culture Result - No growth 5 days Normal [facility] Comment on above: Performed By: #### B LCUL ####[id number] [place], [place] [phone] Bacteria identified Cx Nom (Bld) Sp. Request/Comment: - 42.85CC Culture Result - No growth 5 days Normal [facility] Comment on above: Performed By: #### B LCUL ####[facility] [place], [place] [phone] CBCon 11-12-2020 Absolute nRBC <0.01 Normal <0.01 [facility] Erythrocyte distribution width (RBC) [Ratio] 16.8 % High 11.5-15.0 [facility] Hematocrit (Bld) [Volume fraction] 28.9 % Low 36.0-46.0 [facility] Hemoglobin (Bld) [Mass/Vol] 8.5 g/dL Low 11.5-15.5 [facility] MCH 26.6 pG Normal 26.0-34.0 [facility] MCHC (RBC) [Mass/Vol] 29.4 g/dL Low 30.5-36.[address] [facility] MCV (RBC) [Entitic vol] 90.6 fL Normal 80.0-100.0 [facility] Platelet mean volume (Bld) [Entitic vol] 11.6 fL Normal 9.0-12.7 [facility] Platelets (Bld) [#/Vol] 167 10*3/uL Normal 150-400 [facility] RBC (Bld) [#/Vol] 3.19 10*6/uL Low 3.90-5.20 [facility] WBC (Bld) [#/Vol] 3.88 10*3/uL Normal 3.70-11.00 [facility] CNDSon 11-12-2020 [facility] HNO ID: [id number] Author: Lucero Wheeler DO Service: General Surgery [...] (more content not included)... [facility] CONSULT PROGon 11-12-2020 CONSULT PROG HNO ID: [id number] Author: Awais Gonzalez MD Service: Infectious Disease [...] SIGNATURE: Awais Gonzalez MD [facility] NURSING PROGon 11-12-2020 NURSING PROG HNO ID: [id number] Author: Wisam Carvajal RN Service: ? Author [...] completed by: Wisam Carvajal [facility] SHAMKEA Panel 1on 11-11-2020 [place] by EIA 0.8 OD Ratio Normal [facility] Comment on above: Result Comment: OD R atio is interpreted as follows: Negative <1.0 Positive >=1.0 Performed By: #### P REALB, TRANSF #### [facility] [employer] [address] [place], [place] [id number] [place] by EIA, Qual Negative Normal Negative [facility] Comment on above: Performed By: #### P REALB, TRANSF #### [facility] [employer] [address] [place], [place] [phone] Basic Metabolic Panlon 11-11 Anion gap [Moles/Vol] 9 mmol/L Normal 0-[address] [facility] Calcium [Mass/Vol] 9.2 mg/dL Normal 8.5-10.2 [facility] Chloride [Moles/Vol] 115 mmol/L High 97-105 [facility] CO2 [Moles/Vol] 19 mmol/L Low 22-30 [facility] Creatinine [Mass/Vol] 0.78 mg/dL Normal 0.58-0.[address] [facility] eGFR- Amer. >60 Normal [facility] eGFR-All Other Races >60 Normal [facility] Comment on above: Result Comment: eGFR (Estimated [...] GFR. Glucose [Mass/Vol] 89 mg/dL Normal 74-99 [facility] Potassium [Moles/Vol] 3.8 mmol/L Normal 3.7-5.[address] [facility] Sodium [Moles/Vol] 143 mmol/L Normal 136-144 [facility] Urea nitrogen [Mass/Vol] 20 mg/dL Normal 7-21 [facility] Blood Cultureon 11-11-2020 Bacteria identified Cx Nom (Bld) Culture Result - No growth 5 days Normal [facility] Comment on above: Performed By: #### B LCUL ####[facility] [place], [place] [phone] C-Reactive Proteinon 021 CRP [Mass/Vol] mg/L Normal 0.1-0.89 [facility] Comment on above: Performed By: #### P REALB, TRANSF #### [facility] [address] [place], [place] [address] C3 Complementon 11-11-2020 C3 Complement 122 mg/dL Normal 86-166 [facility] Comment on above: Performed By: #### P REALB, TRANSF #### [id number] [place], [place] [address] C4 Complementon 11-11-2020 C4 Complement 26 mg/dL Normal 13-46 [facility] Comment on above: Performed By: #### P REALB, TRANSF #### [id number] [place], [place] [address] CBCon 11-11-2020 Absolute nRBC <0.01 Normal <0.01 [facility] Erythrocyte distribution width (RBC) [Ratio] 16.6 % High 11.5-15.0 [facility] Hematocrit (Bld) [Volume fraction] 30.0 % Low 36.0-46.0 [facility] Hemoglobin (Bld) [Mass/Vol] 8.9 g/dL Low 11.5-15.5 [facility] MCH 26.5 pG Normal 26.0-34.0 [facility] MCHC (RBC) [Mass/Vol] 29.7 g/dL Low 30.5-36.[address] [facility] MCV (RBC) [Entitic vol] 89.3 fL Normal 80.0-100.0 [facility] Platelet mean volume (Bld) [Entitic vol] 11.5 fL Normal 9.0-12.7 [facility] Platelets (Bld) [#/Vol] 155 10*3/uL Normal 150-400 [facility] RBC (Bld) [#/Vol] 3.36 10*6/uL Low 3.90-5.20 [facility] WBC (Bld) [#/Vol] 4.41 10*3/uL Normal 3.70-11.00 [facility] CONSULTon 11-11-2020 CONSULT HNO ID: [id number] Author: Christopher Gonzalez V, MD Service: Infectious [...] Obesity, Class III, BMI 40-49.9 (morbid obesity) ([facility]) - Port-A-Cath in place patients [...] PSYCH: No (more content not included)... Normal [facility] NURSING PROGon 11-11-2020 NURSING PROG HNO ID: [id number] Author: Anne-Marie Farley, BRANDIE Service: Nursing Author [...] completed by: Anne-Marie Farley [facility] NURSING PROG HNO ID: [id number] Author: Carolina Lowry RN Service: ? Author Type: Registered Nurse Type: Nursing Progress Note Filed: 11/11/2020 7:46 PM Note Text: Nursing Progress Note Patient Name: Maricarmen Anderson Patient [facility] [place] Daily Note:Nursing assessment completed see NPR. No signs of distress. 1600 Spoke with the surgery doctor, ok to continue using medport. This note was completed by: Carolina Lowry [facility] ALLIED HEALTHon 11-10-2020 [facility]IED [facility] HNO ID: [id number] Author: RT Mary(Liz) Service: Radiology Author Type: Stores Assistant Type: Allied Health Filed: 11/09/2020 11:44 PM [...] November 09, 2020 11:44 PM Normal [facility] Basic Metabolic Panlon 11-10 Anion gap [Moles/Vol] 9 mmol/L Normal 0-[address] [facility] Calcium [Mass/Vol] 8.9 mg/dL Normal 8.5-10.2 [facility] Chloride [Moles/Vol] 114 mmol/L High 97-105 [facility] CO2 [Moles/Vol] 20 mmol/L Low 22-30 [facility] Creatinine [Mass/Vol] 0.83 mg/dL Normal 0.58-0.[address] [facility] eGFR- Amer. >60 Normal [facility] eGFR-All Other Races >60 Normal [facility] Comment on above: Result Comment: eGFR (Estimated [...] GFR. Glucose [Mass/Vol] 93 mg/dL Normal 74-99 [facility] Potassium [Moles/Vol] 3.9 mmol/L Normal 3.7-5.[address] [facility] Sodium [Moles/Vol] 143 mmol/L Normal 136-144 [facility] Urea nitrogen [Mass/Vol] 16 mg/dL Normal 7-21 [facility] CASE MGT INIT ASSESon 2020 CASE MGT INIT [facility] HNO ID: [id number] Author: Estela Avila RN Service: ? Author Type: Registered Nurse Type: Care Mgt Initial Assessment Filed: 11/10/2020 9:47 AM Note Text: CARE MANAGEMENT: ASSESSMENT AND DISCHARGE PLAN SERVICE DATE: November 10, 2020 SERVICE TIME: 0945 PRIMARY CARE PHYSICIAN: Viktor Sotelo MD ADMISSION STATUS: Observation Needs Prior to Discharge: Other: See Comment (Medical clearance) MEDICAL: MEDICARE A AND B Patient/Coach Wirer Stated Goals: To return home to life as it was Health Insurance: Medicare;Medicaid Health Issues Impacting Discharge Plan: None Last Discharge Date: 09/29/20 Is this Within the Past 30 days? 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 to Assist with AD Completion: Yes [...] None Has the Patient Been in a [facility] Facility in the Past 30 days?: No SOCIAL: Living Arrangements: Home Lives With: Son Financial Resources: Disabled Primary Contact: Extended Emergency Contact Information Primary Emergency Contact: Khalida Anaya Mobile Relation: Sister Secondary Emergency Contact: Lucero Chaves Mobile Relation: Mother Supportive Patient Contact:: Yes Contact Resources: Family Family Name/Phone: Sister Khalida Anaya/[phone] Caregiver AssessmentCaregiver is ready, willing and able [...] Completely I feel financially burdened by my [id number] expenses for my prescription medication:: 0 - Disagree Completely Risk Score: 0 Patient is categorized as: Low risk < 2 Are you interested in bedside delivery of your medications? No Is Patient Psychosocially Complex?: No ASSESSMENT AND PLAN: Medical Needs: Medical Needs: Two or more chronic diseases Psychosocial Needs: Psychosocial Needs: None FREEDOM OF CHOICE EXPLAINED: [place] of Choice Given: No Reason Not Given: [...] 10, 2020 TIME: 9:45 AM PAGER/CONTACT #: [phone] Normal [facility] CBCon 11-10-2020 Absolute nRBC <0.01 Normal <0.01 [facility] Erythrocyte distribution width (RBC) [Ratio] 16.6 % High 11.5-15.0 [facility] Hematocrit (Bld) [Volume fraction] 29.0 % Low 36.0-46.0 [facility] Hemoglobin (Bld) [Mass/Vol] 8.6 g/dL Low 11.5-15.5 [facility] MCH 26.5 pG Normal 26.0-34.0 [facility] MCHC (RBC) [Mass/Vol] 29.7 g/dL Low 30.5-36.[address] [facility] MCV (RBC) [Entitic vol] 89.2 fL Normal 80.0-100.0 [facility] Platelet mean volume (Bld) [Entitic vol] 11.2 fL Normal 9.0-12.7 [facility] Platelets (Bld) [#/Vol] 165 10*3/uL Normal 150-400 [facility] RBC (Bld) [#/Vol] 3.25 10*6/uL Low 3.90-5.20 [facility] WBC (Bld) [#/Vol] 4.26 10*3/uL Normal 3.70-11.00 [facility] NURSING PROGon 11-10-2020 NURSING PROG HNO ID: [id number] Author: Carolina Lowry RN Service: ? Author Type: Registered Nurse Type: Nursing Progress Note Filed: 11/10/2020 9:53 AM Note Text: Nursing Progress Note Patient Name: Maricarmen Anderson Patient Location: CA93/ CA1-1 Daily Note:Nursing assessment completed see NPR. No signs of distress. This note was completed by: Carolina Lowry [facility] NUTRITIONon 11-10-2020 NUTRITION HNO ID: [id number] Author: Luz Watson RD Service: Nutrition Therapy [...] Weight loss;Patient/family self-report;Nausea;Vomiti ng Estimated kilocalorie needs: 1452-9023 kcal/day Calorie Calculation Method: 15-20 kcals/kg Estimated protein needs (grams): 76-100 gm protein/day Grams protein determined by: 1.3 - 1.7 g/kg;Kelayres body weight Care Plan: Continue current diet [...] protein shake. She ate 1 serving of greenlandic toast this morning and had emesis following. [...] November 10, 2020 TIME: 12:50 PM PAGER: [phone] Normal [facility] Urinalysis with Microscopico n 11-10-2020 Bacteria 3+ /HPF Critically abnormal Negative [facility] Bilirubin, Urine Negative Normal Negative [facility] Cast SEE COMMENT Normal 0 [facility] Comment on above: Result Comment: 0 Clarity (U) Clear Normal Clear [facility] Color (U) Yellow Normal Yellow [facility] Crystals LM Nom (Urine sed) SEE COMMENT Critically abnormal Negative [facility] Comment on above: Result Comment: 2+ Calcium Oxalate Epithelial cells LM Ql (Urine sed) SEE COMMENT Critically abnormal Occasional [facility] Comment on above: Result Comment: 1+ Squamous Epithelial Cells Glucose Ql (U) Negative Normal Negative [facility] Hemoglobin/Blood,Ur Negative Normal Negative [facility] Ketones Ql (U) Trace Critically abnormal Negative [facility] Leukest 1+ Critically abnormal Negative [facility] Mucus Ql (Urine sed) 1+ Normal [facility] Nitrite Ql (U) Negative Normal Negative [facility] pH (U) 6.5 [pH] Normal 5.0-8.0 [facility] Protein, Urine Trace Critically abnormal Negative [facility] RBC 3-5 Critically abnormal 0-3 [facility] Specific [place], Ur 1.025 Normal 1.005-1.[address] [facility] Urobilinogen Qn (U) 1.0 {José'U}/dL Normal 0.2-1.0 [facility] WBC 26-50 Critically abnormal 0-5 [facility] XR LUMBAR 2V AP/LATon 2020 XR [...] 2V AP/LAT HISTORY: mid back pain (accession [id number]), back pain (accession [id number]) Mid-back/T-spine pain, initial exam. TECHNIQUE: XR THORACIC [...] 2020 7:09AM EST [id number] [facility] XR THORACIC 2V AP/LATon 10-21 XR THORACIC 2V AP/LAT * * *Final Report* * * DATE OF EXAM: Nov 09 2020 11:44PM SPX [id number] - XR THORACIC 2V AP/LAT / PROCEDURE REASON: Mid-back/T-spine pain, initial exam * * * * Physician Interpretation * * * * RESULT: EXAMINATION: XR THORACIC 2V AP/LAT, XR LUMBAR 2V AP/LAT HISTORY: mid back pain (accession [id number]), back pain (accession [id number]) Mid-back/T-spine pain, initial exam. TECHNIQUE: XR THORACIC [...] 2020 7:09AM EST [id number] [facility] ALLIED HEALTHon 11-09-2020 ALLIED HEALTH HNO ID: [id number] Author: Uzair Monroy Service: Radiology Author Type: Stores Assistant Type: Allied Health Filed: 11/09/2020 7:56 AM [...] IV DATA: Not applicable SIGNED BY: Uzair Mornoy November 09, 2020 7:55 AM [facility] ALLIED HEALTH HNO ID: [id number] Author: Uzair Monroy Service: Radiology Author Type: Stores Assistant Type: Allied Health Filed: 11/09/2020 7:51 AM [...] 09, 2020 7:51 AM [facility] Blood Cultureon 11-09-2020 Bacteria identified Cx Nom (Bld) Culture Result - No growth 5 days [facility] Comment on above: Performed By: #### B LCUL ####[facility] [place], [place] [phone] Bacteria identified Cx Nom (Bld) Additional Testing [...] read back by: Nika Gore RN [facility] --> ABNORMAL ALERT [address] Surg 11/11/20 0122 Chuckie hSarpe --> ABNORMAL ALERT Methicillin resistant Staphylococcus epidermidis (MRSE) detected by --> ABNORMAL ALERT microarray. Single positive cultures of S. epidermidis usually --> ABNORMAL ALERT represent contamination. Call lab within 72 h if further work up is --> ABNORMAL ALERT required. Negative for Streptococcus spp. and Enterococcus spp. by --> ABNORMAL ALERT microarray.(*) Called to and read back by: BRANDIE QUINN from [facility] on --> [facility]NORMAL [facility] --> ABNORMAL ALERT Critically abnormal [facility] Comment on above: Performed By: #### B LCUL ####[facility] [address] [place], [place] [phone] CBC and Differentialon 11-09 Abs Baso <0.03 Normal <0.11 [facility] Abs [place] 0.29 k/uL Normal <0.87 [facility] Abs Neut 3.25 k/uL Normal 1.45-7.50 [facility] Absolute nRBC <0.01 Normal <0.01 [facility] Basophils/100 WBC (Bld) 0.4 % Normal [facility] DTYPE Auto Diff Normal [facility] Eosinophils (Bld) [#/Vol] 0.04 10*3/uL Normal <0.46 [facility] Eosinophils/100 WBC (Bld) 0.8 % Normal [facility] Erythrocyte distribution width (RBC) [Ratio] 16.3 % High 11.5-15.0 [facility] Hematocrit (Bld) [Volume fraction] 31.9 % Low 36.0-46.0 [facility] Hemoglobin (Bld) [Mass/Vol] 9.6 g/dL Low 11.5-15.5 [facility] Lymphocytes (Bld) [#/Vol] 1.33 10*3/uL Normal 1.00-4.00 [facility] Lymphocytes/100 WBC (Bld) 26.9 % Normal [facility] MCH 26.0 pG Normal 26.0-34.0 [facility] MCHC (RBC) [Mass/Vol] 30.1 g/dL Low 30.5-36.[address] [facility] MCV (RBC) [Entitic vol] 86.4 fL Normal 80.0-100.0 [facility] Monocytes/100 WBC (Bld) 5.9 % Normal [facility] Neutrophils/100 WBC (Bld) 66.0 % Normal [facility] NRBCs 0.0 /100 WBC Normal 0 [facility] Platelet mean volume (Bld) [Entitic vol] 11.0 fL Normal 9.0-12.7 [facility] Platelets (Bld) [#/Vol] 173 10*3/uL Normal 150-400 [facility] RBC (Bld) [#/Vol] 3.69 10*6/uL Low 3.90-5.20 [facility] WBC (Bld) [#/Vol] 4.95 10*3/uL Normal 3.70-11.00 [facility] CTA ABD/PELV W IVCONon 11-09 CTA ABD/PELV W IVCON * * *Final Report* * * DATE OF EXAM: Nov 09 2020 10:53AM [facility] 0311 - CTA ABD/PELV W IVCON / [...] 09 2020 10:53AM EST [id number] Normal [facility] CTA CHEST (NONGATED) W IVCON on [...] 09 2020 10:53AM EST [id number] Normal [facility] Comp Metabolic Panelon 11-09 Albumin [Mass/Vol] 3.9 g/dL Normal 3.5-5.0 [facility] ALP [Catalytic activity/Vol] 56 U/L Normal 34-123 [facility] ALT [Catalytic activity/Vol] 9 U/L Normal 7-38 [facility] Anion gap [Moles/Vol] 9 mmol/L Normal 0-[address] [facility] AST [Catalytic activity/Vol] 16 U/L Normal 13-35 [facility] Bilirubin [Mass/Vol] 0.5 mg/dL Normal 0.2-1.3 [facility] Calcium [Mass/Vol] 9.4 mg/dL Normal 8.5-10.2 [facility] Chloride [Moles/Vol] 110 mmol/L High 97-105 [facility] CO2 [Moles/Vol] 21 mmol/L Low 22-30 [facility] Creatinine [Mass/Vol] 0.75 mg/dL Normal 0.58-0.[address] [facility] eGFR- Amer. >60 Normal [facility] eGFR-All Other Races >60 Normal [facility] Comment on above: Result Comment: eGFR (Estimated [...] GFR. Glucose [Mass/Vol] 91 mg/dL Normal 74-99 [facility] Potassium [Moles/Vol] 3.6 mmol/L Low 3.7-5.[address] [facility] Protein [Mass/Vol] 6.6 g/dL Normal 6.3-8.0 [facility] Sodium [Moles/Vol] 140 mmol/L Normal 136-144 [facility] Urea nitrogen [Mass/Vol] 17 mg/dL Normal 7-21 [facility] D dimeron 11-09-2020 D dimer 770 ng/mL FEU High <500 [facility] Comment on above: Result Comment: 500 [...] ED NOTEon 11-09-2020 ED NOTE HNO ID: [id number] Author: Yaya Singletary RN Service: ? Author Type: Registered Nurse Type: ED Notes Filed: 11/09/2020 1:34 PM Note Text: Report called to Abbey RN. All questions addressed. Vitals updated. Family at bedside. Pt NAD at this time. This RN at bedside to transport pt. Floor nurse aware of blood cultures and covid in process. Normal [facility] ED NOTE HNO ID: [id number] Author: Yaya Singletary RN Service: ? Author Type: Registered Nurse Type: ED Notes Filed: 11/09/2020 7:44 AM Note Text: Portable CXR at bedside. [facility] ED NOTE HNO ID: [id number] Author: Yaya Singletary RN Service: ? Author Type: Registered Nurse Type: ED Notes Filed: 11/09/2020 7:18 AM Note Text: Assumed care of patient from Traci DIEGO. Pt in room standing up at bedside with emesis bag. NAD or active vomiting at this time. Joy PAULSON in room to talk with patient. [facility] ED NOTE HNO ID: [id number] Author: Connie Vazquez RN Service: ? 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 O2 Therapy: Room [...] w (more content not included)... 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 Normal [facility] High Sens Troponin Ton 11-09 High Sensitivity SALLY 6 ng/L Normal <12 [facility] Comment on above: Result Comment: When assessing [...] High Sensitivity SALLY 6 ng/L Normal <12 [facility] Comment on above: Result Comment: When assessing [...] Ql (Unsp spec) Nasopharyngeal Swab Normal [facility] Comment on above: Performed By: #### I TCOVD ####[address] [phone] SARS-CoV-2 (COVID-19) RNA CRISTINA+probe Ql (Unsp spec) Negative for COVID19 (SARS CoV2) by RT-PCR or equivalent method. Normal Negative for COVID19 (SARS CoV2) by RT-PCR or equivalent method. [facility] Comment on above: Result Comment: This test was developed and its performance characteristics determined by [facility] [place]. This test has been authorized by FDA under an Emergency Use Authorization (EUA). This test has been validated in accordance with the FDA's Guidance Document Policy for Diagnostics Testing in Laboratories Certified to Perform High Complexity Testing under CLIA prior to Emergency use Authorization for Coronavirus Disease 2019 during the Public Health Emergency issued on August 20, 2019. Test performed by [facility], [facility] [place], [address] [place], [place] [address]. Performed By: #### I TCOVD ####[facility] [address] [place], [place] [phone] Lipaseon 11-09-2020 Lipase [Catalytic activity/Vol] 21 U/L Normal 16-61 [facility] NURSING PROGon 11-09-2020 NURSING PROG HNO ID: [id number] Author: Saskia Cm RN Service: ? Author Type: Registered Nurse Type: Nursing Progress Note Filed: 11/10/2020 6:04 AM Note Text: Nursing Progress Note Patient Name: Maricarmen Anderson Patient Location: [place]/ [place] Daily Note: Received report from BRANDIE Joel. [...] note was completed by: Saskia Cm Normal [facility] NURSING PROG HNO ID: [id number] Author: Wisam Cravajal RN Service: ? Author Type: Registered Nurse Type: Nursing Progress Note Filed: 11/09/2020 7:00 PM Note Text: Nursing Progress Note Patient Name: Maricarmen Anderson Patient Location: [place]/ [place] Daily Note: 1454: assessment complete, patient complains of severe left flank pain and nausea, will continue to monitor 1845: Blood cultures collected and sent to lab This note was completed by: Wisam Carvajal [facility] NURSING PROG HNO ID: [id number] Author: Wisam Carvajal, RN Service: ? Author Type: Registered Nurse Type: Nursing Progress Note Filed: 11/09/2020 5:16 PM Note Text: Nursing Progress Note Patient Name: Maricarmen Anderson [facility] Transfer Note: Patient transferred into room/unit 931 in stable condition. Actions taken: No futher actions taken at this time. Will continue to monitor and check with patient. This note was completed by: Wisam Carvajal [facility] Urinalysis with Microscopico n 11-09-2020 Bacteria 3+ /HPF Critically abnormal Negative [facility] Bilirubin, Urine Negative Normal Negative [facility] Cast SEE COMMENT Normal 0 [facility] Comment on above: Result Comment: 0 Clarity (U) Slightly Cloudy Critically abnormal Clear [facility] Color (U) Yellow Normal Yellow [facility] Epithelial cells LM Ql (Urine sed) SEE COMMENT Critically abnormal Occasional [facility] Comment on above: Result Comment: 2+ Squamous Epithelial Cells Glucose Ql (U) Negative Normal Negative [facility] Hemoglobin/Blood,Ur Negative Normal Negative [facility] Ketones Ql (U) Negative Normal Negative [facility] Leukest 1+ Critically abnormal Negative [facility] Nitrite Ql (U) Negative Normal Negative [facility] pH (U) 6.5 [pH] Normal 5.0-8.0 [facility] Protein, Urine Trace Critically abnormal Negative [facility] RBC 0-3 Normal 0-3 [facility] Specific [place], Ur >=1.030 Normal 1.005-1.[address] [facility] Urobilinogen Qn (U) 2.0 {José'U}/dL High 0.2-1.0 [facility] WBC 6-10 Critically abnormal 0-5 [facility] Urine Cultureon 11-09-2020 Bacteria identified Cx [...] CFU/ml Normal urogenital yogesh [facility] Comment on above: Performed By: #### U RCUL ####[facility] [place], [place] [phone] XR CHEST 1V FRONTAL PORTon 0 11-09-2020 [...] on Nov 09 2020 7:59AM EST [id number] [facility] MARICARMEN ANDERSON ([id number]) 1980 F T Date Time Provider Department 11/08/20 CLEMENTE ENG During your visit today, we recorded the following information about you: BYRON Richter 11/08/2020 9:29 AM Signed Called PCP office (Dr Viktor Sotelo) [phone] is out of the office this week. Asked if Nurse could fax copies of recent lab work, imaging that may have been done while patient was recently hospitalized last week. BYRON Richter CT 11/09/2020 8:17 AM Signed Outside records received and scanned to [employer] Forwarded to Dr Eng. BYRON Richter Allergies [...] Encounter Status:Closed by NICOLETTE SANCHEZ on 11/09/20 [facility] Telephone (cube19) ----- MARICARMEN ANDERSON ([id number]) 1980 F [facility] Date Time Provider Department 11/05/20 CLEMENTE [...] Fully Assessed Reason for Visit: Patient Question [1885] Prescriptions as of 11/05/2020 Sig: LORAZEPAM 0.5 [...] ALBERTO SIMMONS on 11/07/20 [facility] CNPN Telephone (NSCAMN) ----- MARICARMEN ANDERSON ([id number]) 1980 F T Date Time Provider Department 10/30/20 EMELIA BALDWIN [facility] During your visit today, we recorded the following information about you: Urmila Hein [facility] 2020 8:29 AM Signed Order Request Caller : Maricarmen Contact Order Being Requested : MRI Cervical Spine Orders need to be placed in [facility] Laith Donaldson RN 2020 12:42 [...] (HCC) [G93.5] Order(s):MRI CERVICAL SPINE WO IVCON [6393645] Order #: [id number] FUTURE Prescriptions as of 2020 Sig: LORAZEPAM [...] Encounter Status:Closed by LAITH DONALDSON on 10/30/20 [facility] Raman 10-22-2020 CNPN Telephone (SPPRAD) ----- PAIGEMARICARMEN Johnson ([id number]) 1980 F T Date Time Provider Department [...] Reason for Visit: Radio Imaging Study Comments [0217] Prescriptions as of 10/22/2020 Sig: IV CONTRAST [...] Encounter Status:Closed by CLEMENTE ENG on 10/22/20 [facility] 10-08-2020 [facility] Telephone (cube19) ----- MARICARMEN ANDERSON ([id number]) 1980 F [facility] Date Time Provider Department 10/08/20 CLEMENTE [...] patient should come to the ER at [facility] if she is dehydrated and a [...] Status:Closed by NICOLETTE KING on 10/09/20 Normal [facility] Basic Metabolic Panlon 09-29 Anion gap [Moles/Vol] 10 mmol/L Normal 0-[address] [facility] Comment on above: Performed By: #### P REALB ####[facility] [place], [place] [phone] Calcium [Mass/Vol] 9.4 mg/dL Normal 8.5-10.2 [facility] Comment on above: Performed By: #### P REALB ####[facility] [address] [place], [place] [phone] Chloride [Moles/Vol] 110 mmol/L High 97-105 [facility] Comment on above: Performed By: #### P REALB ####[facility] [address], [place] [phone] CO2 [Moles/Vol] 20 mmol/L Low 22-30 [facility] Comment on above: Performed By: #### P REALB ####[facility] [address] [phone] Creatinine [Mass/Vol] 0.75 mg/dL Normal 0.58-0.[address] [facility] Comment on above: Performed By: #### P REALB ####[address] [phone] eGFR- Amer. >60 Normal [facility] Comment on above: Performed By: #### P REALB ####[address] [phone] eGFR-All Other Races >60 Normal [facility] Comment on above: Result Comment: eGFR (Estimated [...] actual GFR. Performed By: #### P REALB ####[address] [phone] Glucose [Mass/Vol] 108 mg/dL High 74-99 [facility] Comment on above: Performed By: #### P REALB ####[address] [phone] Potassium [Moles/Vol] 3.6 mmol/L Low 3.7-5.[address] [facility] Comment on above: Performed By: #### P REALB ####[address] [phone] Sodium [Moles/Vol] 140 mmol/L Normal 136-144 [facility] Comment on above: Performed By: #### P REALB ####[address] [phone] Urea nitrogen [Mass/Vol] 12 mg/dL Normal 7-21 [facility] Comment on above: Performed By: #### P REALB ####[facility] [address] [place], [place] [phone] CASE MANAGEMon 09-29-2020 CASE MANAGEM HNO ID: [id number] Author: Wiliam Santamaria Service: Case Management Author [...] the process utilized to ensure compliance with [facility] policy regarding Inpatient Admission and Observation [...] documented evidence of concurrence. [facility] CASE MGT INIT Cory 2020 CASE MGT INIT JORGE HNO ID: [id number] Author: Anaid (Rn) BRANDIE Valencia Service: ? Author Type: Registered Nurse Type: Care Mgt Initial Assessment Filed: 09/29/2020 11:10 AM Note Text: CARE MANAGEMENT: ASSESSMENT AND DISCHARGE PLAN SERVICE DATE: September 29, 2020 SERVICE TIME: 1030 PRIMARY CARE PHYSICIAN: Viktor Sotelo MD ADMISSION STATUS: Inpatient Needs Prior to Discharge: (Tube Feeding Prescription) MEDICAL: MEDICARE A AND B Patient/Coach Wirer Stated Goals: This has been discussed with my physician Health Insurance: Medicare Health Issues Impacting Discharge Plan: Chronic Chronic: Gastroparesis Last Discharge Date: 05/29/20 Is this Within the Past 30 days? 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 Not known ASSESSMENT AND PLAN: Medical Needs: Medical Needs: Two or more chronic diseases;Nutritional Nutrition Needs: Tube Feed Psychosocial Needs: Psychosocial Needs: None FREEDOM OF CHOICE EXPLAINED: [place] of Choice Given: No (No new placeement needed and to continue with [facility]) POTENTIAL TRANSITION PLANS Home Care;Home Care Pharmacy Patient's young son lives with her, and when asked, she states that she is independent. Patient is on home enteral tube feedings via jejunostomy and here for malfunctioning tube. Provider is [employer] and referral sent. Patient is independent with [...] 29, 2020 TIME: 11:04 AM PAGER/CONTACT #: [phone] Normal [facility] CBCon 09-29-2020 Absolute nRBC <0.01 Normal <0.01 [facility] Comment on above: Performed By: #### P REALB ####[facility] [address] [place], [place] [phone] Erythrocyte distribution width (RBC) [Ratio] 15.3 % High 11.5-15.0 [facility] Comment on above: Performed By: #### P REALB ####[facility] [address] [place], [place] [phone] Hematocrit (Bld) [Volume fraction] 30.3 % Low 36.0-46.0 [facility] Comment on above: Performed By: #### P REALB ####[place] [address] [place], [place] [phone] Hemoglobin (Bld) [Mass/Vol] 9.1 g/dL Low 11.5-15.5 [facility] Comment on above: Performed By: #### P REALB ####[address] [place], [place] [phone] MCH 25.9 pG Low 26.0-34.0 [facility] Comment on above: Performed By: #### P REALB ####[address] [place], [place] [phone] MCHC (RBC) [Mass/Vol] 30.0 g/dL Low 30.5-36.[address] [facility] Comment on above: Performed By: #### P REALB ####[address] [place], [place] [phone] MCV (RBC) [Entitic vol] 86.3 fL Normal 80.0-100.0 [facility] Comment on above: Performed By: #### P REALB ####[address] [place], [place] [phone] Platelet mean volume (Bld) [Entitic vol] 10.6 fL Normal 9.0-12.7 [facility] Comment on above: Performed By: #### P REALB ####[place] [address] [place], [place] [phone] Platelets (Bld) [#/Vol] 170 10*3/uL Normal 150-400 [facility] Comment on above: Performed By: #### P REALB ####[address] [place], [place] [phone] RBC (Bld) [#/Vol] 3.51 10*6/uL Low 3.90-5.20 [facility] Comment on above: Performed By: #### P REALB ####[address] [place], [place] [phone] WBC (Bld) [#/Vol] 6.60 10*3/uL Normal 3.70-11.00 [facility] Comment on above: Performed By: #### P REALB ####[facility] [address] [place], [place] [phone] CNDSon 09-29-2020 CNDS HNO ID: [id number] Author: Maynor Manley DO Service: General Surgery [...] 2020 TIME: 11:09 AM [facility] CT ABD/PEL WO IVCONon 2020 CT ABD/PEL WO IVCON * * *Final Report* * * DATE OF EXAM: Sep 28 2020 10:39PM [facility] 0531 - CT ABD/PEL WO IVCON / [...] Tissues: No acute abnormality. Lower thorax: Unremarkable. Drill Hand (topogram) images: No additional findings. IMPRESSION: Retracted [...] 28 2020 11:12PM EST [id number] Normal [facility] Coronavirus 2019on 1 SARS-CoV-2 (COVID-19) RNA CRISTINA+probe Ql (Unsp spec) Nasopharyngeal Swab Normal [facility] Comment on above: Performed By: #### C OVID ####[facility] [place], [place] [phone] SARS-CoV-2 (COVID-19) RNA CRISTINA+probe Ql (Unsp spec) Negative Normal Negative for COVID19 (SARS CoV2) by PCR. [facility] Comment on above: Result Comment: This test was developed and its performance characteristics determined by [facility]'s [facility] [place]. This test has been authorized by FDA under an Emergency Use Authorization (EUA). This test has been validated in accordance with the FDA's Guidance Document Policy for Diagnostics Testing in Laboratories Certified to Perform High Complexity Testing under CLIA prior to Emergency use Authorization for Coronavirus Disease 2019 during the Public Health Emergency issued on August 20, 2019. Test performed by [facility], [facility] Whitaker [facility] [place], [address] [place], [place] [address]. Performed By: #### C OVID ####[facility] [place], [place] [phone] ED NOTEon 09-29-2020 ED NOTE HNO ID: [id number] Author: Soco VasquezRn) BRANDIE Bardales Service: ? Author Type: Registered Nurse Type: ED Notes Filed: 09/28/2020 11:04 PM Note Text: covid obtained and sent. [facility] NURSING PROGon 09-29-2020 NURSING PROG HNO ID: [id number] Author: Mercy VasquezRn) BRANDIE Whitaker Service: ? Author Type: Registered Nurse Type: Nursing Progress Note Filed: 09/29/2020 12:51 PM Note Text: Nursing Progress Note Patient Name: Maricarmen Anderson Patient Location: [facility] [place] Daily Note: patient resting in bed, made NPO for removal of J-tube. This note was completed by: Mercy Whitaker RN [facility] NURSING PROG HNO ID: [id number] Author: Anne-Marie VasquezRnNorth Farley RN Service: Nursing Author Type: Registered Nurse Type: Nursing Progress Note Filed: 09/29/2020 7:33 AM Note Text: Nursing Progress Note Patient Name: Maricarmen Anderson Patient Location[place] Daily Note: 0054 Pt arrived in room, oriented to floor and room, safety maintained. 0100 Pt has a fever tylenol given. 0733 Report given to Mercy (Rn). This note was completed by: Anne-Marie Farley RN [facility] NUTRITIONon 09-29-2020 NUTRITION HNO ID: [id number] Author: Molly Tello) Gurpreet Service: Nutrition Therapy Author Type: Registered Dietitian Type: Nutrition Filed: 09/29/2020 11:21 AM Note Text: NUTRITION THERAPY INITIAL ASSESSMENT SERVICE DATE: 09/29/2020 SERVICE TIME: 11:13 AM Nutrition Assessment: Recommended Malnutrition Diagnosis: No Malnutrition Identified Nutrition Diagnosis: Problem: Inadequate Enteral Nutrition Infusion Related to: Mechanical cause As evidenced by: Patient/family self-report Estimated kilocalorie needs: 2269 Calorie Calculation Method: [place]-[employer]. [employer] (with activity factor) (1.3) Estimated protein needs (grams): 77-100 Grams protein determined by: 1.3 - 1.7 g/kg;Kelayres body weight Care Plan: Advance diet to regular diet with TF Supplements: zone bar, Boost GC, and loraine [employer] each daily Enteral Nutrition Tube Feeding Formula Type: Loraine Group[employer] Peptide 1.5 Goal Rate (mL/hr x hours): [...] 7. BREAKFAST, LUNCH, DINNER Supplement 3 LORAINE SendUs 1.0 CHOCOLATE Supplement 3 Frequency 7. BREAKFAST, [...] Assess/15 min 3 units SIGNATURE: Molly Vázquez, MS,RD,LD[facility] PATIENT NAME: Maricarmen Anderson DATE: September 29, 2020 TIME: 11:13 AM PAGER: [phone] Normal [facility] Prealbuminon 09-29-2020 Prealbumin [Mass/Vol] 21 mg/dL Normal 17-[address] [facility] Comment on above: Performed By: #### P REALB ####[facility] [place], [place] [phone] CBC and Differentialon 09-28 Abs Baso <0.03 Normal <0.11 [facility] Abs [place] 0.28 k/uL Normal <0.87 [facility] Abs Neut 5.26 k/uL Normal 1.45-7.50 [facility] Absolute nRBC <0.01 Normal <0.01 [facility] Basophils/100 WBC (Bld) 0.3 % Normal [facility] DTYPE Auto Diff Normal [facility] Eosinophils (Bld) [#/Vol] 0.04 10*3/uL Normal <0.46 [facility] Eosinophils/100 WBC (Bld) 0.6 % Normal [facility] Erythrocyte distribution width (RBC) [Ratio] 15.2 % High 11.5-15.0 [facility] Hematocrit (Bld) [Volume fraction] 31.5 % Low 36.0-46.0 [facility] Hemoglobin (Bld) [Mass/Vol] 9.3 g/dL Low 11.5-15.5 [facility] Lymphocytes (Bld) [#/Vol] 0.93 10*3/uL Low 1.00-4.00 [facility] Lymphocytes/100 WBC (Bld) 14.2 % Normal [facility] MCH 25.6 pG Low 26.0-34.0 [facility] MCHC (RBC) [Mass/Vol] 29.5 g/dL Low 30.5-36.[address] [facility] MCV (RBC) [Entitic vol] 86.8 fL Normal 80.0-100.0 [facility] Monocytes/100 WBC (Bld) 4.3 % Normal [facility] Neutrophils/100 WBC (Bld) 80.6 % Normal [facility] NRBCs 0.0 /100 WBC Normal 0 [facility] Platelet mean volume (Bld) [Entitic vol] 10.4 fL Normal 9.0-12.7 [facility] Platelets (Bld) [#/Vol] 186 10*3/uL Normal 150-400 [facility] RBC (Bld) [#/Vol] 3.63 10*6/uL Low 3.90-5.20 [facility] WBC (Bld) [#/Vol] 6.54 10*3/uL Normal 3.70-11.00 [facility] CNPNon 09-28-2020 CNPN Telephone (GENSSP) ----- MARICARMEN ANDERSON ([id number]) 1980 F T Date Time Provider Department [...] Fully Assessed Reason for Visit: Patient Question [5827] Primary Visit Diagnosis:Gastrojejunosto my tube dislodgement [T85.528A] Order(s):XR ABDOMEN 1V SUPINE [[id number]] Order #: [id number] FUTURE Prescriptions as of 09/28/2020 Sig: ACETAZOLAMIDE [...] M* Take 20 mL by mouth twice igncaio* LINACLOTIDE 145 MCG CAPSULE Take 1 capsule [...] Status:Closed by NICOLETTE KING on 09/28/20 Normal [facility] CONSULTon 09-28-2020 CONSULT HNO ID: [id number] Author: Elsisa Medina MD Service: General Surgery Author Type: [...] 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 Normal [facility] Comp Metabolic Panelon 09-28 Albumin [Mass/Vol] 4.3 g/dL Normal 3.5-5.0 [facility] ALP [Catalytic activity/Vol] 72 U/L Normal 34-123 [facility] ALT [Catalytic activity/Vol] 11 U/L Normal 7-38 [facility] Anion gap [Moles/Vol] 11 mmol/L Normal 0-[address] [facility] AST [Catalytic activity/Vol] 19 U/L Normal 13-35 [facility] Bilirubin [Mass/Vol] 0.4 mg/dL Normal 0.2-1.3 [facility] Calcium [Mass/Vol] 9.6 mg/dL Normal 8.5-10.2 [facility] Chloride [Moles/Vol] 110 mmol/L High 97-105 [facility] CO2 [Moles/Vol] 18 mmol/L Low 22-30 [facility] Creatinine [Mass/Vol] 0.68 mg/dL Normal 0.58-0.[address] [facility] eGFR- Amer. >60 Normal [facility] eGFR-All Other Races >60 Normal [facility] Comment on above: Result Comment: eGFR (Estimated [...] GFR. Glucose [Mass/Vol] 97 mg/dL Normal 74-99 [facility] Potassium [Moles/Vol] 3.8 mmol/L Normal 3.7-5.[address] [facility] Protein [Mass/Vol] 7.3 g/dL Normal 6.3-8.0 [facility] Sodium [Moles/Vol] 139 mmol/L Normal 136-144 [facility] Urea nitrogen [Mass/Vol] 14 mg/dL Normal 7-21 [facility] ED NOTEon 09-28-2020 ED NOTE HNO ID: [id number] Author: Arminda VasquezRn) BRANDIE Wong Service: ? Author Type: Registered Nurse Type: ED Notes Filed: 09/28/2020 9:17 PM Note Text: Pt has finished Contrast via tube Normal [facility] ED NOTE HNO ID: [id number] Author: Keven VasquezRn) BRANDIE Reid Service: ? [...] Call bagley within reach. 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 Normal [facility] Lipaseon 09-28-2020 Lipase [Catalytic activity/Vol] 30 U/L Normal 16-61 [facility] Basic Metabolic Panlon 05-29 Anion gap [Moles/Vol] 10 mmol/L Normal 0-[address] [facility] Calcium [Mass/Vol] 9.2 mg/dL Normal 8.5-10.2 [facility] Chloride [Moles/Vol] 106 mmol/L High 97-105 [facility] CO2 [Moles/Vol] 23 mmol/L Normal 22-30 [facility] Creatinine [Mass/Vol] 0.78 mg/dL Normal 0.58-0.[address] [facility] eGFR- Amer. >60 Normal [facility] eGFR-All Other Races >60 Normal [facility] Comment on above: Result Comment: eGFR (Estimated GFR) Units of measure: mL/min/1.73 meters squared eGFR is derived from the reexpressed MDRD Study equation using the following parameters: serum creatinine, age, gender and race. The creatinine assay has been calibrated to be traceable to [employer]. An eGFR <60 mL/min/1.73m2 for >3 months is consistent with chronic kidney disease. Refer to KDOQI guidelines for clinical interpretation. In patients with unstable renal function, e.g. those with acute kidney injury, the eGFR may not accurately reflect actual GFR. Glucose [Mass/Vol] 88 mg/dL Normal 74-99 [facility] Potassium [Moles/Vol] 3.9 mmol/L Normal 3.7-5.[address] [facility] Sodium [Moles/Vol] 139 mmol/L Normal 136-144 [facility] Urea nitrogen [Mass/Vol] 8 mg/dL Normal 7-21 [facility] CBC and Differentialon 05-29 Abs Baso <0.03 Normal <0.11 [facility] Abs [place] 0.33 k/uL Normal <0.87 [facility] Abs Neut 2.58 k/uL Normal 1.45-7.50 [facility] Absolute nRBC <0.01 Normal <0.01 [facility] Basophils/100 WBC (Bld) 0.5 % Normal [facility] DTYPE Auto Diff Normal [facility] Eosinophils (Bld) [#/Vol] 0.08 10*3/uL Normal <0.46 [facility] Eosinophils/100 WBC (Bld) 1.9 % Normal [facility] Erythrocyte distribution width (RBC) [Ratio] 13.5 % Normal 11.5-15.0 [facility] Hematocrit (Bld) [Volume fraction] 27.4 % Low 36.0-46.0 [facility] Hemoglobin (Bld) [Mass/Vol] 8.4 g/dL Low 11.5-15.5 [facility] Lymphocytes (Bld) [#/Vol] 1.25 10*3/uL Normal 1.00-4.00 [facility] Lymphocytes/100 WBC (Bld) 29.3 % Normal [facility] MCH 27.6 pG Normal 26.0-34.0 [facility] MCHC (RBC) [Mass/Vol] 30.7 g/dL Normal 30.5-36.[address] [facility] MCV (RBC) [Entitic vol] 90.1 fL Normal 80.0-100.0 [facility] Monocytes/100 WBC (Bld) 7.7 % Normal [facility] Neutrophils/100 WBC (Bld) 60.6 % Normal [facility] NRBCs 0.0 /100 WBC Normal 0 [facility] Platelet mean volume (Bld) [Entitic vol] 10.9 fL Normal 9.0-12.7 [facility] Platelets (Bld) [#/Vol] 148 10*3/uL Low 150-400 [facility] RBC (Bld) [#/Vol] 3.04 10*6/uL Low 3.90-5.20 [facility] WBC (Bld) [#/Vol] 4.27 10*3/uL Normal 3.70-11.00 [facility] CNDSon 05-29-2020 [facility] HNO ID: [id number] Author: Deirdre Dejesus Service: General Surgery Author [...] (more content not included)... [facility] NURSING PROGon 05-29-2020 NURSING PROG HNO ID: [id number] Author: Mitchel VasquezRn) BRANDIE Larry Service: Nursing Author Type: Registered Nurse Type: Nursing Progress Note Filed: 05/29/2020 3:35 PM Note Text: Nursing Progress Note Patient Name: Maricarmen Anderson Patient Location: [facility]/ [place] 0730 Assumed care of patient after report from night RN. 1311 tube feed rate increased to goal rate of 55 ml/hr. Dr. Eng (PCP) plans to discharge today. No distress at this time. Patient expressing eagerness to go home [address] Eng he is to have web development intern write up discharge order and instructions. This note was completed by: Mitchel Larry RN [facility] NUTRITIONon 05-29-2020 NUTRITION HNO ID: [id number] Author: Maricarmen Santiago Service: Nutrition Therapy Author Type: Registered Dietitian Type: Nutrition Filed: 05/29/2020 11:16 AM Note Text: NUTRITION THERAPY PROGRESS NOTE SERVICE DATE: 05/29/2020 SERVICE TIME: 11:15 AM Nutrition Assessment: Recommended Malnutrition Diagnosis: Mild Protein-Calorie Malnutrition (05/26/20 1142 : Molly Vázquez) Estimated kilocalorie needs: 2040 Calorie Calculation Method: [place] Therapy (with activity factor)(1.2 AF) Estimated protein needs (grams): 89-118 Grams protein determined by: 1.5-2.0 g/kg Care Plan: Continue current diet Increase to goal as tolerated Enteral Nutrition Tube Feeding Formula Type: [employer] Peptide 1.5 Goal Rate (mL/hr x hours): [...] Tube Feeding;Diet Diet: per physician Enteral/Tube Feedings: [employer] Peptide 1.5 @ 55 ml/hr Interval History:Pt started on TF [employer] Peptide 1.5. Currently running at 40 ml/hr [...] May 29, 2020 TIME: 11:15 AM PAGER: [phone] [facility] ANES POSTPROC EVALon 020 ANES POSTPROC EVAL HNO ID: [id number] Author: Dennis Coulter Service: ? Author Type: [...] May 28, 2020 TIME: 12:32 PM CSN: [id number] [facility] ANES PRE-OPon 05-28-2020 ANES PRE-OP HNO ID: [id number] Author: Dennis Coulter Service: ? Author Type: [...] r (more content not included)... Normal [facility] Basic Metabolic Panlon 05-28 Anion gap [Moles/Vol] 7 mmol/L Normal 0-[address] [facility] Calcium [Mass/Vol] 9.1 mg/dL Normal 8.5-10.2 [facility] Chloride [Moles/Vol] 106 mmol/L High 97-105 [facility] CO2 [Moles/Vol] 29 mmol/L Normal 22-30 [facility] Creatinine [Mass/Vol] 0.68 mg/dL Normal 0.58-0.[address] [facility] eGFR- Amer. >60 Normal [facility] eGFR-All Other Races >60 Normal [facility] Comment on above: Result Comment: eGFR (Estimated [...] GFR. Glucose [Mass/Vol] 86 mg/dL Normal 74-99 [facility] Potassium [Moles/Vol] 3.4 mmol/L Low 3.7-5.[address] [facility] Sodium [Moles/Vol] 142 mmol/L Normal 136-144 [facility] Urea nitrogen [Mass/Vol] 6 mg/dL Low 7-21 [facility] CBC and Differentialon 05-28 Abs Baso 0.03 k/uL Normal <0.11 [facility] Abs [place] 0.26 k/uL Normal <0.87 [facility] Abs Neut 2.02 k/uL Normal 1.45-7.50 [facility] Absolute nRBC <0.01 Normal <0.01 [facility] Basophils/100 WBC (Bld) 0.9 % Normal [facility] DTYPE Auto Diff Normal [facility] Eosinophils (Bld) [#/Vol] 0.06 10*3/uL Normal <0.46 [facility] Eosinophils/100 WBC (Bld) 1.8 % Normal [facility] Erythrocyte distribution width (RBC) [Ratio] 13.4 % Normal 11.5-15.0 [facility] Hematocrit (Bld) [Volume fraction] 26.2 % Low 36.0-46.0 [facility] Hemoglobin (Bld) [Mass/Vol] 8.2 g/dL Low 11.5-15.5 [facility] Lymphocytes (Bld) [#/Vol] 0.97 10*3/uL Low 1.00-4.00 [facility] Lymphocytes/100 WBC (Bld) 29.0 % Normal [facility] MCH 27.8 pG Normal 26.0-34.0 [facility] MCHC (RBC) [Mass/Vol] 31.3 g/dL Normal 30.5-36.[address] [facility] MCV (RBC) [Entitic vol] 88.8 fL Normal 80.0-100.0 [facility] Monocytes/100 WBC (Bld) 7.8 % Normal [facility] Neutrophils/100 WBC (Bld) 60.5 % Normal [facility] NRBCs 0.0 /100 WBC Normal 0 [facility] Platelet mean volume (Bld) [Entitic vol] 10.7 fL Normal 9.0-12.7 [facility] Platelets (Bld) [#/Vol] 157 10*3/uL Normal 150-400 [facility] RBC (Bld) [#/Vol] 2.95 10*6/uL Low 3.90-5.20 [facility] WBC (Bld) [#/Vol] 3.34 10*3/uL Low 3.70-11.00 [facility] NURSING PROGon 05-28-2020 NURSING PROG HNO ID: [id number] Author: Leander VasquezRn) BRANDIE Shaver Service: ? Author Type: Registered Nurse Type: Nursing Progress Note Filed: 05/29/2020 8:02 AM Note Text: Nursing Progress Note Patient Name: Maricarmen Anderson Patient Location[place] Daily Note: 1929 Report received from BRANDIE Ho and carlosee and care of pt assumed 1944 Safety check performed 2117 Pt assessment completed and pt medicated appropriately 199 Pt is asleep with no signs of distress at this time. Call bagley in reach 729 Report given to BRANDIE Mcdonough/Radu This note was completed by: Leander Shaver RN Normal [facility] NURSING PROG HNO ID: [id number] Author: [place] VasquezRnNorth King RN Service: ? [...] by: ALBANIA King RN [facility] NURSING PROG HNO ID: [id number] Author: [place] (Rn) BRANDIE Mcnair Service: Nursing Author Type: Registered Nurse Type: Nursing Progress Note Filed: 05/28/2020 5:11 PM Note Text: Nursing Progress Note Patient Name: Maricarmen Anderson Patient Location: [facility]/ [place] Daily Note: 0700 Report received from BRANDIE [...] by: Georgia Mcnair RN [facility] CBC and Differentialon 05-27 Abs Baso <0.03 Normal <0.11 [facility] Abs [place] 0.29 k/uL Normal <0.87 [facility] Abs Neut 2.00 k/uL Normal 1.45-7.50 [facility] Absolute nRBC <0.01 Normal <0.01 [facility] Basophils/100 WBC (Bld) 0.3 % Normal [facility] DTYPE Auto Diff Normal [facility] Eosinophils (Bld) [#/Vol] 0.08 10*3/uL Normal <0.46 [facility] Eosinophils/100 WBC (Bld) 2.2 % [facility] Erythrocyte distribution width (RBC) [Ratio] 13.6 % Normal 11.5-15.0 [facility] Hematocrit (Bld) [Volume fraction] 25.7 % Low 36.0-46.0 [facility] Hemoglobin (Bld) [Mass/Vol] 8.0 g/dL Low 11.5-15.5 [facility] Lymphocytes (Bld) [#/Vol] 1.34 10*3/uL Normal 1.00-4.00 [facility] Lymphocytes/100 WBC (Bld) 36.0 % Normal [facility] MCH 27.9 pG Normal 26.0-34.0 [facility] MCHC (RBC) [Mass/Vol] 31.1 g/dL Normal 30.5-36.[address] [facility] MCV (RBC) [Entitic vol] 89.5 fL Normal 80.0-100.0 [facility] Monocytes/100 WBC (Bld) 7.8 % Normal [facility] Neutrophils/100 WBC (Bld) 53.7 % Normal [facility] NRBCs 0.0 /100 WBC Normal 0 [facility] Platelet mean volume (Bld) [Entitic vol] 10.6 fL Normal 9.0-12.7 [facility] Platelets (Bld) [#/Vol] 150 10*3/uL Normal 150-400 [facility] RBC (Bld) [#/Vol] 2.87 10*6/uL Low 3.90-5.20 [facility] WBC (Bld) [#/Vol] 3.72 10*3/uL Normal 3.70-11.[address] [facility] [address] KIDNEY WO/W IVCONon 05-27 CT KIDNEY WO/W IVCON * * *Final Report* * * DATE OF EXAM: May 27 2020 12:32PM [facility] 0546 - CT KIDNEY WO/W IVCON / [...] hypoventilatory changes in the dependent lung bases. Drill Hand (topogram) images: No additional findings. IMPRESSION: Hypodense [...] 2020 1:14PM EST [id number] [facility] Comp Metabolic Panelon 05-27 Albumin [Mass/Vol] 3.4 g/dL Low 3.5-5.0 [facility] ALP [Catalytic activity/Vol] 73 U/L Normal 34-123 [facility] ALT [Catalytic activity/Vol] U/L Low 7-38 [facility] Anion gap [Moles/Vol] 12 mmol/L Normal 0-[address] [facility] AST [Catalytic activity/Vol] 15 U/L Normal 13-35 [facility] Bilirubin [Mass/Vol] 0.3 mg/dL Normal 0.2-1.3 [facility] Calcium [Mass/Vol] 8.8 mg/dL Normal 8.5-10.2 [facility] Chloride [Moles/Vol] 106 mmol/L High 97-105 [facility] CO2 [Moles/Vol] 24 mmol/L Normal 22-30 [facility] Creatinine [Mass/Vol] 0.70 mg/dL Normal 0.58-0.[address] [facility] eGFR- Amer. >60 Normal [facility] eGFR-All Other Races >60 Normal [facility] Comment on above: Result Comment: eGFR (Estimated [...] GFR. Glucose [Mass/Vol] 99 mg/dL Normal 74-99 [facility] Potassium [Moles/Vol] 3.6 mmol/L Low 3.7-5.[address] [facility] Protein [Mass/Vol] 5.7 g/dL Low 6.3-8.0 [facility] Sodium [Moles/Vol] 142 mmol/L Normal 136-144 [facility] Urea nitrogen [Mass/Vol] 5 mg/dL Low 7-21 [facility] NURSING PROGon 05-27-2020 NURSING PROG HNO ID: [id number] Author: Tacho VasquezRn) BRANDIE Marr Service: ? [...] 1.5 ordered, this is not supplied at [facility]. [place] 1.0 is at bedside, is this okay to use in place? Please advise. Thanks, Kp @ [phone] Tube feed held per orders for EGD, 05/28. This note was completed by: Tacho Marr RN [facility] NURSING PROG HNO ID: [id number] Author: Bibi VasquezRn) BRANDIE Freeman Service: Nursing Author Type: Registered Nurse Type: Nursing Progress Note Filed: 05/27/2020 7:25 PM Note Text: Nursing Progress Note Patient Name: Maricarmen Anderson Patient Location: / Daily Note:0724am updates from night custodian nurse. Iv fluids at 50ml/hr per pt's [...] will arrive from dietary. 1925pm updates to night custodian nurse. This note was completed by: Bibi Freeman, RN Normal [facility] CBC and Differentialon 05-26 Abs Baso <0.03 Normal <0.11 [facility] Abs [place] 0.32 k/uL Normal <0.87 [facility] Abs Neut 1.63 k/uL Normal 1.45-7.50 [facility] Absolute nRBC <0.01 Normal <0.01 [facility] Basophils/100 WBC (Bld) 0.5 % Normal [facility] DTYPE Auto Diff Normal [facility] Eosinophils (Bld) [#/Vol] 0.07 10*3/uL Normal <0.46 [facility] Eosinophils/100 WBC (Bld) 1.8 % Normal [facility] Erythrocyte distribution width (RBC) [Ratio] 13.6 % Normal 11.5-15.0 [facility] Hematocrit (Bld) [Volume fraction] 27.2 % Low 36.0-46.0 [facility] Hemoglobin (Bld) [Mass/Vol] 8.5 g/dL Low 11.5-15.5 [facility] Lymphocytes (Bld) [#/Vol] 1.85 10*3/uL Normal 1.00-4.00 [facility] Lymphocytes/100 WBC (Bld) 47.4 % Normal [facility] MCH 27.7 pG Normal 26.0-34.0 [facility] MCHC (RBC) [Mass/Vol] 31.3 g/dL Normal 30.5-36.[address] [facility] MCV (RBC) [Entitic vol] 88.6 fL Normal 80.0-100.0 [facility] Monocytes/100 WBC (Bld) 8.2 % Normal [facility] Neutrophils/100 WBC (Bld) 42.1 % Normal [facility] NRBCs 0.0 /100 WBC Normal 0 [facility] Platelet mean volume (Bld) [Entitic vol] 10.4 fL Normal 9.0-12.7 [facility] Platelets (Bld) [#/Vol] 150 10*3/uL Normal 150-400 [facility] RBC (Bld) [#/Vol] 3.07 10*6/uL Low 3.90-5.20 [facility] WBC (Bld) [#/Vol] 3.90 10*3/uL Normal 3.70-11.00 [facility] CONSULT PROGon 05-26-2020 CONSULT PROG HNO ID: [id number] Author: Raleigh Srivastava DO Service: General Surgery [...] 05/26/2020 TIME: 5:50 AM [facility] CT ABD/PEL W IVCONon 020 CT ABD/PEL W IVCON * * *Final Report* * * DATE OF EXAM: May 26 2020 12:43PM [facility] 0530 - CT ABD/PEL W IVCON / [...] atelectasis. Partially visualized electrodes in the heart. Drill Hand (topogram) images: No additional findings. IMPRESSION: No [...] be communicated with the ordering provider via [employer] staff message by [employer] within 2 business days of report finalization. Algorithms for management of incidental imaging findings can be found on the [facility] Intranet Sharepoint site at: [email or web address] [email or web address] Transcribed Using Voice Recognition Transcribe Date/Time: May 26 2020 12:59P Dictated by: ANIKET SIERRA MD This examination was interpreted and the report reviewed and electronically signed by: ANIKET SIERRA MD on May 26 2020 1:24PM EST [id number] ACTIONABLE Invalid Interpretation Code [facility] Comp Metabolic Panelon 05-26 Albumin [Mass/Vol] 3.6 g/dL Normal 3.5-5.0 [facility] ALP [Catalytic activity/Vol] 79 U/L Normal 34-123 [facility] ALT [Catalytic activity/Vol] 6 U/L Low 7-38 [facility] Anion gap [Moles/Vol] 8 mmol/L Normal 0-[address] [facility] AST [Catalytic activity/Vol] 13 U/L Normal 13-35 [facility] Bilirubin [Mass/Vol] 0.4 mg/dL Normal 0.2-1.3 [facility] Calcium [Mass/Vol] 9.0 mg/dL Normal 8.5-10.2 [facility] Chloride [Moles/Vol] 106 mmol/L High 97-105 [facility] CO2 [Moles/Vol] 28 mmol/L Normal 22-30 [facility] Creatinine [Mass/Vol] 0.68 mg/dL Normal 0.58-0.[address] [facility] eGFR- Amer. >60 Normal [facility] eGFR-All Other Races >60 Normal [facility] Comment on above: Result Comment: eGFR (Estimated [...] GFR. Glucose [Mass/Vol] 98 mg/dL Normal 74-99 [facility] Potassium [Moles/Vol] 3.5 mmol/L Low 3.7-5.[address] [facility] Protein [Mass/Vol] 6.1 g/dL Low 6.3-8.0 [facility] Sodium [Moles/Vol] 142 mmol/L Normal 136-144 [facility] Urea nitrogen [Mass/Vol] 8 mg/dL Normal 7-21 [facility] Coronavirus 2019on 0 SARS-CoV-2 (COVID-19) RNA CRISTINA+probe Ql (Unsp spec) Nasopharyngeal Swab Normal [facility] Comment on above: Performed By: #### C OVID ####[address] [phone] SARS-CoV-2 (COVID-19) RNA CRISTINA+probe Ql (Unsp spec) Negative Normal Negative for COVID19 (SARS CoV2) by PCR. [facility] Comment on above: Result Comment: This test was developed and its performance characteristics determined by [facility]'s [facility] [place]. This test has been authorized by FDA under an Emergency Use Authorization (EUA). This test has been validated in accordance with the FDA's Guidance Document Policy for Diagnostics Testing in Laboratories Certified to Perform High Complexity Testing under CLIA prior to Emergency use Authorization for Coronavirus Disease 2019 during the Public Health Emergency issued on August 20, 2019. Performed By: #### C OVID ####[place] [id number] [place], [place] [phone] Folate, Serumon 05-26-2020 Folate [Mass/Vol] 5.7 ng/mL Normal >4.7 [facility] Comment on above: Performed By: #### P THI, VITD, B1WB ####[id number] [place], [place] [phone] Hemoglobin A1con 05-26-2020 Glucose [Mass/Vol] 114 mg/dL Normal [facility] Comment on above: Result Comment: eAG: (Estimated average glucose) is a calculated value from HgbA1c and is counter sales representative of the average blood glucose level in the last 2-3 month period. Performed By: #### P REALB, TRANSF #### [facility] [employer] [address] [place], [place] [address] HbA1c (Bld) [Mass fraction] 5.6 % Normal 4.3-5.6 [facility] Comment on above: Result Comment: Amer ican Diabetes Association guidelines indicate that patients with HgbA1c in the range 5.7-6.4% are at increased risk for development of diabetes, and intervention by lifestyle modification may be beneficial. HgbA1c greater or equal to 6.5% is considered diagnostic of diabetes. Performed By: #### P REALB, TRANSF #### [facility] [employer] [address] [place] [address] Iron and TIBCon 05-26-2020 Iron [Mass/Vol] 20 ug/dL Low 41-186 [facility] Comment on above: Performed By: #### P THI, VITD, B1WB ####[facility] [place], [place] [phone] TIBC 341 ug/dL Normal 210-415 [facility] Comment on above: Performed By: #### P THI, VITD, B1WB ####[facility] [place], [place] [phone] Transferrin Saturatn 6 % Low 11-46 [facility] Comment on above: Performed By: #### P THI, VITD, B1WB ####[facility] [place], [place] [phone] Lipaseon 05-26-2020 Lipase [Catalytic activity/Vol] 112 U/L High 16-61 [facility] Lipid Panel, Bas[place] 020 Cholesterol [Mass/Vol] 188 mg/dL Normal <[address] [facility] Comment on above: Result Comment: <200 mg/dL, Desirable 200-239 mg/dL, Borderline high >239 mg/dL, High Performed By: #### P THI, VITD, B1WB ####[facility] [place], [place] [phone] Cholesterol in HDL [Mass/Vol] 57 mg/dL Normal >39 [facility] Comment on above: Result Comment: 40-5 9 mg/dL, Acceptable >59 mg/dL, High: Negative risk factor for coronary heart disease <40 mg/dL, Low: Positive risk factor for coronary heart disease Performed By: #### P THI, VITD, B1WB ####[facility], [place] [phone] Cholesterol in LDL [Mass/Vol] 113 mg/dL High <100 [facility] Comment on above: Result Comment: <100 mg/dL, Optimal 100-129 mg/dL, Near optimal/above optimal 130-159 mg/dL, Borderline high 160-189 mg/dL, High >189 mg/dL, Very high Secondary prevention optimal LDL Cholesterol levels are recommended to be < 70 mg/dL Performed By: #### P THI, VITD, B1WB ####[place] [address] [place], [place] [phone] Fasting Time Blood Normal [facility] Comment on above: Performed By: #### P THI, VITD, B1WB ####[place] [address] [place], [place] [phone] LDL:HDL Ratio 1.98 Normal <2.54 [facility] Comment on above: Result Comment: Refe rence: 1. National Cholesterol Education Program ATP III Guideline At-A-Glance Quick Desk Reference: National Heart, Lung, and Blood [place]. National Institutes of Health. 2001: NIH Publication No. 01-3305. 2. An International Atherosclerosis Society position paper: global recommendations for the management of dyslipidemia: executive summary, Atherosclerosis. 2014: 232(2):410-413. Performed By: #### P THI, VITD, B1WB ####[place] [place], [place] [phone] Non HDL Cholesterol 131 mg/dL High <130 [facility] Comment on above: Performed By: #### P THI, VITD, B1WB ####[facility] [place], [place] [phone] TC:HDL Ratio 3.30 Normal <5.10 [facility] Comment on above: Performed By: #### P THI, VITD, B1WB ####[facility] [phone] Triglyceride [Mass/Vol] 88 mg/dL Normal <150 [facility] Comment on above: Result Comment: <150 mg/dL, Normal 150-199 mg/dL, Borderline high 200-499 mg/dL, High >499 mg/dL, Very high Performed By: #### P THI, VITD, B1WB ####[place] [id number] [place] [phone] VLDL Cholesterol 18 mg/dL Normal <30 [facility] Comment on above: Performed By: #### P THI, VITD, B1WB ####[place] [phone] Magnesiumon 05-26-2020 Magnesium [Mass/Vol] 2.0 mg/dL Normal 1.7-2.6 [facility] NURSING PROGon 05-26-2020 NURSING PROG HNO ID: [id number] Author: Tacho (Rn) BRANDIE Marr Service: ? Author Type: Registered Nurse Type: Nursing Progress Note Filed: 05/27/2020 4:29 AM Note Text: Nursing Progress Note Patient Name: Maricarmen Anderson Patient Location: [place]/ [place]-2 Daily Note: 1935 Assumed care of patient, received report. Assessment complete, see NPR. 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 Thanks, Kp @ [phone] IV fluids reduced to 75 ml/hr [...] by: Tacho Marr RN [facility] NURSING PROG HNO ID: [id number] Author: Bibi VasquezRn) BRANDIE Freeman Service: Nursing Author Type: Registered Nurse Type: Nursing Progress Note Filed: 05/26/2020 7:34 PM Note Text: Nursing Progress Note Patient Name: Maricarmen Anderson Patient Location: [address] Daily Note:0800am report from night custodian nurse. Pt awake resting in bed. 0955am dietican rounding at bedside. Tf on hold for ct of abd/pelvis. 1140am dr. eng has rounded per pt. 1150am covid sent as ordered 1325pm pt delcines on starting tube feeding until ct results available. 1603pm pt awake resting in bed. All blood work collected and sent to lab as ordered. 1934pm report to night custodian nurse. This note was completed by: Bibi Freeman RN [facility] NURSING PROG HNO ID: [id number] Author: Rosibel VasquezRn) BRANDIE Bonilla Service: Nursing Author Type: Registered Nurse Type: Nursing Progress Note Filed: 05/26/2020 4:08 AM Note Text: Nursing Progress Note Patient Name: Maricarmen Anderson Patient Location: [place] [address]/ [place]-721-2 Daily Note: 2226 Nutren 1.5 hung at 20 ml/hr. 0000 Pt states she cannot tolerate tube feed. She is nauseous. 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 OK to hold TF for now. This note was completed by: Rosibel Bonilla RN [facility] NUTRITIONon 05-26-2020 NUTRITION HNO ID: [id number] Author: Molly (Maik) Gurpreet Service: Nutrition Therapy [...] Estimated kilocalorie needs: 2040 Calorie Calculation Method: [place] (with activity factor)(1.2 AF) Estimated protein [...] service and advised her to come to [facility] to be evaluated. Patient does have [...] Assess/15 min 4 units SIGNATURE: Molly Vázquez, MS,RD,LD,[facility] PATIENT NAME: Maricarmen Anderson DATE: May 26, 2020 TIME: 11:53 AM PAGER: [phone] Normal [facility] PTH, Intacton 05-26-2020 PTH, Intact 127 pg/mL High [facility] Comment on above: Performed By: #### P THI, VITD, B1WB ####[facility] [place], [place] [phone] TSHon 05-26-2020 TSH Qn 1.040 m[IU]/L Normal 0.270-4.200 [facility] Comment on above: Result Comment: If [...] Leone, et al. 2017 Guidelines of the [place] Thyroid Association for the Diagnosis and Management of Thyroid Disease during and the . Thyroid, 2017:27:3:315-389. Performed By: #### P THI, VITD, B1WB ####[place] [id number] [place], [place] [phone] Vitamin B1, Whole Blon 05-26 Vitamin B1 (TDP), WB 56.6 nmol/L Low 84.0-213.[address] [facility] Comment on above: Result Comment: This assay measures the concentration of thiamine diphosphate (TDP), the primary active form of vitamin B1. Approximately 90 percent of vitamin B1 present in whole blood is TDP. Thiamine and thiamine monophosphate, which comprise the remaining 10 percent, are not measured. This test was developed and its performance characteristics determined by [facility]'s [facility] Pathology and [facility] [place] ([facility]). It has not been cleared or approved by the FDA. [facility] is regulated under CLIA as qualified to perform high complexity testing. This test is used for clinical purposes. It should not be regarded as investigational or for research. Performed By: #### P THI, VITD, B1WB ####[id number] [place], [place] [phone] Vitamin B12on 05-26-2020 Cobalamin (Vitamin B12) [Mass/Vol] 247 pg/mL Normal 232-1245 [facility] Comment on above: Performed By: #### P THI, VITD, B1WB ####[address] [phone] Vitamin D 25 Hydroxyon 05-26 Vitamin D 25 Hydroxy 9.6 ng/mL Low 31.0-80.0 [facility] Comment on above: Result Comment: Clas sification of 25 [place] Vitamin D status: Insufficiency/Moderate Deficiency: < or = 30 ng/mL Sufficiency/Optimal Levels: 31 to 80 ng/mL Toxicity: > 100 ng/mL Test performed by chemiluminescent immunoassay. Performed By: #### P THI, VITD, B1WB ####[address] [phone] CBC and Differentialon 05-25 Abs Baso 0.03 k/uL Normal <0.11 [facility] Abs [place] 0.28 k/uL Normal <0.87 [facility] Abs Neut 2.58 k/uL Normal 1.45-7.50 [facility] Absolute nRBC <0.01 Normal <0.01 [facility] Basophils/100 WBC (Bld) 0.7 % Normal [facility] DTYPE Auto Diff Normal [facility] Eosinophils (Bld) [#/Vol] 0.04 10*3/uL Normal <0.46 [facility] Eosinophils/100 WBC (Bld) 1.0 % Normal [facility] Erythrocyte distribution width (RBC) [Ratio] 13.4 % Normal 11.5-15.0 [facility] Hematocrit (Bld) [Volume fraction] 26.8 % Low 36.0-46.0 [facility] Hemoglobin (Bld) [Mass/Vol] 8.6 g/dL Low 11.5-15.5 [facility] Lymphocytes (Bld) [#/Vol] 1.08 10*3/uL Normal 1.00-4.00 [facility] Lymphocytes/100 WBC (Bld) 26.9 % Normal [facility] MCH 27.7 pG Normal 26.0-34.0 [facility] MCHC (RBC) [Mass/Vol] 32.1 g/dL Normal 30.5-36.[address] [facility] MCV (RBC) [Entitic vol] 86.2 fL Normal 80.0-100.0 [facility] Monocytes/100 WBC (Bld) 7.0 % Normal [facility] Neutrophils/100 WBC (Bld) 64.4 % Normal [facility] NRBCs 0.0 /100 WBC Normal 0 [facility] Platelet mean volume (Bld) [Entitic vol] 10.4 fL Normal 9.0-12.7 [facility] Platelets (Bld) [#/Vol] 170 10*3/uL Normal 150-400 [facility] RBC (Bld) [#/Vol] 3.11 10*6/uL Low 3.90-5.20 [facility] WBC (Bld) [#/Vol] 4.02 10*3/uL Normal 3.70-11.00 [facility] CC Profile Ulises SP,MM,EUC For SPT,MMH,EUC use onlyon 05-25-2020 [place] Test Venous Normal [facility] Attempts 1 Normal [facility] Base Excess 3 mmol/L Normal [facility] Comment on above: Result Comment: -2 T O 2 Body temperature 98.6 [degF] Normal [facility] Calcium [Moles/Vol] 1.20 mmol/L Normal 1.09-1.30 [facility] Chloride [Moles/Vol] 108 mmol/L Normal 50-400 [facility] Device None seen Normal [facility] Drawsite Venous Normal [facility] HCO3 (Bld) [Moles/Vol] 28 mmol/L High 22-[address] [facility] Hemoglobin (Bld) [Mass/Vol] 8.6 g/dL Low 12-18 [facility] Lactate [Moles/Vol] 1.3 mmol/L Normal 0.7-2.5 [facility] pCO2 46 mm Hg Normal 41-51 [facility] pH (Bld) 7.40 [pH] Normal 7.32-7.42 [facility] pO2 BELOW REPORTABLE RANGE Normal 35-[address] [facility] Potassium [Moles/Vol] 3.3 mmol/L Low 3.5-5.[address] 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 Normal [facility] Comp Metabolic Panelon 05-25 Albumin [Mass/Vol] 3.8 g/dL Normal 3.5-5.0 [facility] ALP [Catalytic activity/Vol] 82 U/L Normal 34-123 [facility] ALT [Catalytic activity/Vol] 6 U/L Low 7-38 [facility] Anion gap [Moles/Vol] 10 mmol/L Normal 0-[address] [facility] AST [Catalytic activity/Vol] 14 U/L Normal 13-35 [facility] Bilirubin [Mass/Vol] 0.3 mg/dL Normal 0.2-1.3 [facility] Calcium [Mass/Vol] 8.9 mg/dL Normal 8.5-10.2 [facility] Chloride [Moles/Vol] 107 mmol/L High 97-105 [facility] CO2 [Moles/Vol] 26 mmol/L Normal 22-30 [facility] Creatinine [Mass/Vol] 0.62 mg/dL Normal 0.58-0.[address] [facility] eGFR- Amer. >60 Normal [facility] eGFR-All Other Races >60 Normal [facility] Comment on above: Result Comment: eGFR (Estimated [...] GFR. Glucose [Mass/Vol] 88 mg/dL Normal 74-99 [facility] Potassium [Moles/Vol] 3.3 mmol/L Low 3.7-5.[address] [facility] Protein [Mass/Vol] 6.4 g/dL Normal 6.3-8.0 [facility] Sodium [Moles/Vol] 143 mmol/L Normal 136-144 [facility] Urea nitrogen [Mass/Vol] 10 mg/dL Normal 7-21 [facility] ED NOTEon 05-25-2020 ED NOTE HNO ID: [id number] Author: Chavo Maravilla RN Service: ? Author Type: Registered Nurse Type: ED Notes Filed: 05/25/2020 6:05 PM Note Text: Pt to the floor with caregiver, in stable condition, in NAD. Pt's infusion running without difficulty and pt belongings at bedside. [facility] ED NOTE HNO ID: [id number] Author: Chavo Maravilla RN Service: ? Author Type: Registered Nurse Type: ED Notes Filed: 05/25/2020 6:01 PM Note Text: Report given to Ceasar DIEGO, all questions addressed at this time. [facility] ED NOTE HNO ID: [id number] Author: Chavo Maravilla RN Service: ? Author Type: Registered Nurse Type: ED Notes Filed: 05/25/2020 3:27 PM Note Text: RT notified of CCVBG [facility] ED NOTE HNO ID: [id number] Author: Chavo Maravilla RN Service: ? Author [...] and allergy band applied. [facility] ED NOTE HNO ID: [id number] Author: Marycarmen Coffey) BRANDIE Hunt Service: ? 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 States she had a pacemaker placed in March 2020 at . EKG performed and given to Dr. Moreno [facility] ED NOTE HNO ID: [id number] Author: Marycarmen Coffey) BRANDIE Hunt Service: ? Author Type: Registered Nurse Type: ED Notes Filed: 05/25/2020 12:43 PM Note Text: Pt c/o nausea, vomiting, ABD pain for the past 2 weeks. She has a J tube, and when ever she pours liquid into it, she vomits. Normal [facility] ED PROV NOTEon 05-25-2020 ED PROV NOTE HNO ID: [id number] Author: Dennis Spence DO Service: Emergency Medicine [...] service and advised her to come to [facility] to be evaluated. 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 Normal [facility] HOSPon 05-25-2020 HOSP Patient:Lea Anderson MRN: [...] service and advised her to come to [facility] to be evaluated. Patient does have [...] in January and was seen in the [place] area. She is now on prophylactic seizure [...] of (more content not included)... Normal [facility] Lipaseon 05-25-2020 Lipase [Catalytic activity/Vol] 54 U/L Normal 16-61 [facility] Magnesiumon 05-25-2020 Magnesium [Mass/Vol] 1.9 mg/dL Normal 1.7-2.6 [facility] NURSING PROGon 05-25-2020 NURSING PROG HNO ID: [id number] Author: Mitchel VasquezRnNorth Larry RN Service: Nursing Author Type: Registered Nurse Type: Nursing Progress Note Filed: 05/25/2020 6:27 PM Note Text: Nursing Progress Note Patient Name: Maricarmen Anderson Patient Location: [place] [address] [address] 1815 patient admitted to room [facility]. Pain reported in upper abdomen 03/31 at this time. Nausea also reported. Calling primary MD for admission orders. Patient has j-tube and uses osmolite when able. No other distress noted at this time. Patient denies SOB or CP. This note was completed by: Mitchel Larry RN [facility] NURSING PROG HNO ID: [id number] Author: Michelle VasquezRn) Leatha RN Service: Nursing Author Type: Registered Nurse Type: Nursing Progress Note Filed: 05/25/2020 7:14 PM Note Text: Nursing Progress Note Patient Name: Maricarmen Anderson Patient Location: [place] [address] [address] Transfer Note: Patient transferred into room/unit 721, bed 2 from ED in stable condition. Actions taken: No further actions taken at this time. Will continue to monitor and check with patient. 1912 Nursing admission database completed; [employer] medication list updated. This note was completed by: Michelle Zhang RN Normal [facility] Urinalysis with Microscopico n 05-25-2020 Bacteria 1+ /HPF Critically abnormal Negative [facility] Bilirubin, Urine Negative Normal Negative [facility] Cast SEE COMMENT Normal 0 [facility] Comment on above: Result Comment: 0 Clarity (U) Slightly Cloudy Critically abnormal Clear [facility] Color (U) Yellow Normal Yellow [facility] Crystals LM Nom (Urine sed) SEE COMMENT Critically abnormal Negative [facility] Comment on above: Result Comment: 3+ Calcium Oxalate Glucose Ql (U) Negative Normal Negative [facility] Hemoglobin/Blood,Ur Negative Normal Negative [facility] Ketones Ql (U) Trace Critically abnormal Negative [facility] Leukest Trace Critically abnormal Negative [facility] Nitrite Ql (U) Negative Normal Negative [facility] pH (U) 6.0 [pH] Normal 5.0-8.0 [facility] Protein, Urine Negative Normal Negative [facility] RBC 0-3 Normal 0-3 [facility] Specific [place], Ur 1.025 Normal 1.005-1.[address] [facility] Urobilinogen Qn (U) 1.0 {José'U}/dL Normal 0.2-1.0 [facility] WBC 0-5 Normal 0-5 [facility] SLEEP CENTER REPORTon 2019 [place] [address] SLEEP STUDY REPORT PATIENT NAME: MARICARMEN ANDERSON : 1980 MED REC NO: [id number] ROOM: ACCOUNT NO: [id number] ADMIT DATE: 01/24/2020 PROVIDER: Roseline Decker SLEEP [...] Please correlate clinically. ROSELINE DECKER СВЕТЛАНА/Susan_LAVELLE_T Doc#: [id number] CC: Roseline Decker Normal [facility] Basic Metabolic [facility] 01-01 Anion gap [Moles/Vol] 5 mmol/L Normal 0-[address] [facility] Calcium [Mass/Vol] 9.2 mg/dL Normal 8.5-10.2 [facility] Chloride [Moles/Vol] 106 mmol/L High 97-105 [facility] CO2 [Moles/Vol] 26 mmol/L Normal 22-30 [facility] Creatinine [Mass/Vol] 0.81 mg/dL Normal 0.58-0.[address] [facility] Glucose [Mass/Vol] 106 mg/dL High 74-99 [facility] Potassium [Moles/Vol] 3.8 mmol/L Normal 3.7-5.[address] [facility] Sodium [Moles/Vol] 137 mmol/L Normal 136-144 [facility] Urea nitrogen [Mass/Vol] 9 mg/dL Normal 01-09 [facility] CASE MANAGEMon 01-02-2020 CASE MANAGEM HNO ID: [id number] Author: Anaid (Rn) BRANDIE Valencia Service: ? [...] Physician Name/Phone: Dr. Sotelo Other Caregiver Name/Phone: [employer] TRANSPORTATION ARRANGEMENTS: Transportation Arrangements: Car ADDITIONAL CONTACT RESOURCES: None Patient surgically cleared for discharge and being discharged to home today on enteral tube feedings. [employer] updated and orders to resume tube feedings sent. SIGNATURE: Anaid Valencia RN PATIENT NAME: Maricarmen Anderson DATE: January 02, 2020 TIME: 1:14 PM PAGER/CONTACT #: [phone] Normal [facility] CNDSon 01-02-2020 CNDS HNO ID: [id number] Author: Clemente Eng Service: General Surgery Author [...] Out FOLLOW-UP APPOINTMENTS ALREADY SCHEDULED WITH A [facility] PROVIDER: No future appointments. ALLERGIES Allergen [...] 02, 2020 TIME: 12:33 PM Normal [facility] NURSING PROGon 01-02-2020 NURSING PROG HNO ID: [id number] Author: Kimmie VasquezRn) BRANDIE Galo Service: Nursing Author Type: Registered Nurse Type: Nursing Progress Note Filed: 01/02/2020 12:27 PM Note Text: Nursing Progress Note Patient Name: Maricarmen Anderson Patient [facility] [place] Daily Note: 0730: received report from Silvia [...] completed by: Kimmie Galo RN Normal [facility] Basic Metabolic [place] 12-31 Anion gap [Moles/Vol] 6 mmol/L Normal 0-[address] [facility] Calcium [Mass/Vol] 9.0 mg/dL Normal 8.5-10.2 [facility] Chloride [Moles/Vol] 105 mmol/L Normal 97-105 [facility] CO2 [Moles/Vol] 26 mmol/L Normal 22-30 [facility] Creatinine [Mass/Vol] 0.73 mg/dL Normal 0.58-0.[address] [facility] Glucose [Mass/Vol] 92 mg/dL Normal 74-99 [facility] Potassium [Moles/Vol] 3.7 mmol/L Normal 3.7-5.[address] [facility] Sodium [Moles/Vol] 137 mmol/L Normal 136-144 [facility] Urea nitrogen [Mass/Vol] 8 mg/dL Normal 7-21 [facility] NURSING PROGon 01-01-2020 NURSING PROG HNO ID: [id number] Author: Silvia (Rn) BRANDIE Marquez Service: ? [...] by: Silvia Marquez RN [facility] NURSING PROG HNO ID: [id number] Author: Khalida Coffey) BRANDIE Mendes Service: Nursing Author Type: Registered Nurse Type: Nursing Progress Note Filed: 01/01/2020 7:23 PM Note Text: Nursing Progress Note Patient Name: Maricarmen Anderson Patient Location: [facility] [place]- Daily Note: 0736 Resumed care for the patient, received updates from Tiny DIEGO. 0745 Tube feed increased to 40 cc/hr. 15 Assessment unchanged as charted. Safety maintained. 1400 Tube feed increased to 50 cc/hr, patient tolerating them well. 1919 Report given to Silvia DIEGO. This note was completed by: Khalida Mendes RN [facility] ALLIED HEALTHon 12-31-2019 ALLIED HEALTH HNO ID: [id number] Author: Uzair Hurst (Tech) Service: Radiology Author Type: Stores Assistant Type: Allied Health Filed: 12/31/2019 12:47 AM [...] December 31, 2019 12:46 AM Normal [facility] Basic Metabolic [place] 12-30 Anion gap [Moles/Vol] 8 mmol/L Normal 0-[address] [facility] Calcium [Mass/Vol] 8.9 mg/dL Normal 8.5-10.2 [facility] Chloride [Moles/Vol] 105 mmol/L Normal 97-105 [facility] CO2 [Moles/Vol] 25 mmol/L Normal 22-30 [facility] Creatinine [Mass/Vol] 0.62 mg/dL Normal 0.58-0.[address] [facility] eGFR- Amer. >60 Normal [facility] eGFR-All Other Races >60 Normal [facility] Comment on above: Result Comment: eGFR (Estimated [...] GFR. Glucose [Mass/Vol] 81 mg/dL Normal 74-99 [facility] Potassium [Moles/Vol] 3.6 mmol/L Low 3.7-5.[address] [facility] Sodium [Moles/Vol] 138 mmol/L Normal 136-144 [facility] Urea nitrogen [Mass/Vol] 9 mg/dL Normal 7-21 [facility] CBCon 12-31-2019 Absolute nRBC <0.01 Normal <0.01 [facility] Erythrocyte distribution width (RBC) [Ratio] 13.2 % Normal 11.5-15.0 [facility] Hematocrit (Bld) [Volume fraction] 28.7 % Low 36.0-46.0 [facility] Hemoglobin (Bld) [Mass/Vol] 9.3 g/dL Low 11.5-15.5 [facility] MCH 29.9 pG Normal 26.0-34.0 [facility] MCHC (RBC) [Mass/Vol] 32.4 g/dL Normal 30.5-36.[address] [facility] MCV (RBC) [Entitic vol] 92.3 fL Normal 80.0-100.0 [facility] Platelet mean volume (Bld) [Entitic vol] 10.7 fL Normal 9.0-12.7 [facility] Platelets (Bld) [#/Vol] 151 10*3/uL Normal 150-400 [facility] RBC (Bld) [#/Vol] 3.11 10*6/uL Low 3.90-5.20 [facility] WBC (Bld) [#/Vol] 5.08 10*3/uL Normal 3.70-11.00 [facility] CBC and Differentialon 12-30 Abs Baso 0.03 k/uL Normal <0.11 [facility] Abs [place] 0.49 k/uL Normal <0.87 [facility] Abs Neut 3.99 k/uL Normal 1.45-7.50 [facility] Absolute nRBC <0.01 Normal <0.01 [facility] Basophils/100 WBC (Bld) 0.5 % Normal [facility] DTYPE Auto Diff Normal [facility] Eosinophils (Bld) [#/Vol] 0.04 10*3/uL Normal <0.46 [facility] Eosinophils/100 WBC (Bld) 0.6 % Normal [facility] Erythrocyte distribution width (RBC) [Ratio] 13.1 % Normal 11.5-15.0 [facility] Hematocrit (Bld) [Volume fraction] 30.3 % Low 36.0-46.0 [facility] Hemoglobin (Bld) [Mass/Vol] 9.8 g/dL Low 11.5-15.5 [facility] Lymphocytes (Bld) [#/Vol] 1.70 10*3/uL Normal 1.00-4.00 [facility] Lymphocytes/100 WBC (Bld) 27.2 % Normal [facility] MCH 29.6 pG Normal 26.0-34.0 [facility] MCHC (RBC) [Mass/Vol] 32.3 g/dL Normal 30.5-36.[address] [facility] MCV (RBC) [Entitic vol] 91.5 fL Normal 80.0-100.0 [facility] Monocytes/100 WBC (Bld) 7.8 % Normal [facility] Neutrophils/100 WBC (Bld) 63.9 % Normal [facility] NRBCs 0.0 /100 WBC Normal 0 [facility] Platelet mean volume (Bld) [Entitic vol] 11.0 fL Normal 9.0-12.7 [facility] Platelets (Bld) [#/Vol] 177 10*3/uL Normal 150-400 [facility] RBC (Bld) [#/Vol] 3.31 10*6/uL Low 3.90-5.20 [facility] WBC (Bld) [#/Vol] 6.26 10*3/uL Normal 3.70-11.[address] [facility] [address] ABD/PEL W IVCONon 11-[address] ABD/PEL W IVCON * * *Final Report* * * DATE OF EXAM: Dec 31 2019 12:49AM [facility] 0530 - CT ABD/PEL W IVCON / [...] 31 2019 1:31AM EST [id number] Normal [facility] Comp Metabolic Panelon 12-30 Albumin [Mass/Vol] 3.8 g/dL Normal 3.5-5.0 [facility] ALP [Catalytic activity/Vol] 70 U/L Normal 34-123 [facility] ALT [Catalytic activity/Vol] 9 U/L Normal 7-38 [facility] Anion gap [Moles/Vol] 7 mmol/L Normal 0-[address] [facility] AST [Catalytic activity/Vol] 15 U/L Normal 13-35 [facility] Bilirubin [Mass/Vol] 0.3 mg/dL Normal 0.2-1.3 [facility] Calcium [Mass/Vol] 9.1 mg/dL Normal 8.5-10.2 [facility] Chloride [Moles/Vol] 105 mmol/L Normal 97-105 [facility] CO2 [Moles/Vol] 26 mmol/L Normal 22-30 [facility] Creatinine [Mass/Vol] 0.60 mg/dL Normal 0.58-0.[address] [facility] eGFR- Amer. >60 Normal [facility] eGFR-All Other Races >60 Normal [facility] Comment on above: Result Comment: eGFR (Estimated [...] GFR. Glucose [Mass/Vol] 84 mg/dL Normal 74-99 [facility] Potassium [Moles/Vol] 3.4 mmol/L Low 3.7-5.[address] [facility] Protein [Mass/Vol] 6.2 g/dL Low 6.3-8.0 [facility] Sodium [Moles/Vol] 138 mmol/L Normal 136-144 [facility] Urea nitrogen [Mass/Vol] 11 mg/dL Normal 7-21 [facility] Coronavirus 2019on 0 SARS-CoV-2 (COVID-19) RNA CRISTINA+probe Ql (Unsp spec) Nasopharyngeal Swab Normal [facility] Comment on above: Performed By: #### P REALB, TRANSF #### [facility] [employer] [address] [place] [id number] SARS-CoV-2 (COVID-19) RNA CRISTINA+probe Ql (Unsp spec) Negative Normal Negative for COVID19 (SARS CoV2) by PCR. [facility] Comment on above: Result Comment: This test was developed and its performance characteristics determined by [facility]'s [facility] [place]. This test has been authorized by FDA [...] Performed By: #### P REALB, TRANSF #### [facility] [employer] [address] [place], [place] [address] ED NOTEon 12-31-2019 ED NOTE HNO ID: [id number] Author: Paul VasquezRn) BRANDIE Culver Service: Emergency Medicine Author Type: Registered Nurse Type: ED Notes Filed: 12/31/2019 12:28 AM Note Text: Patient to CT and then stable for admission to 9th floor, report called to BRANDIE Villaseñor. Patient transported with medic, stable at time of transfer from ED [facility] ED NOTE HNO ID: [id number] Author: Paul (Rn) BRANDIE Culver Service: Emergency Medicine Author Type: Registered Nurse Type: ED Notes Filed: 12/30/2019 11:43 PM Note Text: Patient finished contrast, CT aware [facility] ED NOTE HNO ID: [id number] Author: Paul (Rn) BRANDIE Culver Service: Emergency Medicine Author Type: Registered Nurse Type: ED Notes Filed: 12/30/2019 10:55 PM Note Text: Urine obtained and sent [facility] ED NOTE HNO ID: [id number] Author: Paul (Rn) BRANDIE Culver Service: Emergency Medicine Author Type: Registered Nurse Type: ED Notes Filed: 12/30/2019 10:55 PM Note Text: Covid swab obtained, placed on ice and walked to lab by [facility] ED PROV NOTEon 12-31-2019 ED PROV NOTE HNO ID: [id number] Author: Milton Kate MD Service: Emergency Medicine [...] Obesity, Class III, BMI 40-49.9 (morbid obesity) ([facility]) - Port-A-Cath in place patients [...] written (more content not included)... 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 Normal [facility] Lipaseon 12-31-2019 Lipase [Catalytic activity/Vol] 33 U/L Normal 16-61 [facility] Magnesiumon 12-31-2019 Magnesium [Mass/Vol] 1.8 mg/dL Normal 1.7-2.6 [facility] NURSING PROGon 12-31-2019 NURSING PROG HNO ID: [id number] Author: Tiny (Rn) BRANDIE Chamberlain Service: Nursing Author Type: Registered Nurse Type: Nursing Progress Note Filed: 01/01/2020 3:51 AM Note Text: Nursing Progress Note Patient Name: Maricarmen Anderson Patient Location: [place] [address] [place] [address] 1919 Received report from prior RN. Patient [...] by: Tiny Chamberlain RN [facility] NURSING PROG HNO ID: [id number] Author: Khalida VasquezRn) BRANDIE Mendes Service: Nursing Author Type: Registered Nurse Type: Nursing Progress Note Filed: 12/31/2019 7:28 PM Note Text: Nursing Progress Note Patient Name: Maricarmen Anderson [place] Daily Note: 07 Received report from Sheyla [...] by: Khalida Mendes RN [facility] NURSING PROG HNO ID: [id number] Author: Sheyla Martinez Service: ? Author Type: Registered Nurse Type: Nursing Progress Note Filed: 12/31/2019 5:17 AM Note Text: Nursing Progress Note Patient Name: Maricarmen Anderson Patient Location[place] Transfer Note: Patient transferred into room/unit 906 in stable condition. Actions taken: No futher actions taken at this time. Will continue to monitor and check with patient. Patient belongings with patient This note was completed by: Sheyla Martinez RN [facility] NURSING PROG HNO ID: [id number] Author: Sheyla Martinez Service: ? Author Type: Registered Nurse Type: Nursing Progress Note Filed: 12/31/2019 5:16 AM Note Text: Nursing Progress Note Patient Name: Maricarmen Anderson Patient Location[place] Daily Note: 0027 received report from STEVE, Paul, patient going to CT before coming to floor 0045 patient on floor 0048assessment complete, see NPR. Patient's belongings, call light are with in reach. Bed is locked and in lowest position. Patient in no distress at this time. This note was completed by: Sheyla Martinez RN [facility] NUTRITIONon 12-31-2019 NUTRITION HNO ID: [id number] Author: Molly Vázquez Service: Nutrition Therapy Author Type: Registered Dietitian Type: Nutrition Filed: 12/31/2019 11:54 AM Note Text: NUTRITION THERAPY INITIAL ASSESSMENT SERVICE DATE: 12/31/2019 SERVICE TIME: 11:52 AM Nutrition Assessment: Recommended Malnutrition Diagnosis: No Malnutrition Identified Nutrition Diagnosis: Problem: Suboptimal protein/energy intake Related to: Inability to consume sufficient nutrients As evidenced by: Patient/family self-report;Nausea;Vomiti ng Estimated kilocalorie needs: 6352-7215 Calorie Calculation Method: 15-20 kcals/kg Estimated protein needs (grams): 71-89 Grams protein determined by: 1.2-1.5 g/kg;Kelayres Body Weight Care Plan: Continue current diet [...] of Inflammation: Chronic condition SIGNATURE: Molly Vázquez, MS,RD,LD[facility] PATIENT NAME: Maricarmen Anderson DATE: December 31, 2019 TIME: 11:51 AM PAGER: [phone] Normal [facility] Phosphoruson 12-31-2019 Phosphate [Mass/Vol] 3.7 mg/dL Normal 2.7-4.8 [facility] Prealbuminon 12-31-2019 Prealbumin [Mass/Vol] 20 mg/dL Normal 17-[address] [facility] Comment on above: Performed By: #### P REALB, TRANSF #### [facility] [employer] [address] [place] [place] [address] Transferrinon 12-31-2019 Transferrin [Mass/Vol] 266 mg/dL Normal 200-[address] [facility] Comment on above: Performed By: #### P REALB, TRANSF #### [facility] [employer] [address] [place] [address] Urinalysis with Microscopico n 12-31-2019 Amorphous Crystal 2+ Normal [facility] Bacteria 4+ /HPF Critically abnormal Negative [facility] Bilirubin, Urine Negative Normal Negative [facility] Cast SEE COMMENT Normal 0 [facility] Comment on above: Result Comment: 0 Clarity (U) Cloudy Critically abnormal Clear [facility] Color (U) Yellow Normal Yellow [facility] Epithelial cells LM Ql (Urine sed) SEE COMMENT Critically abnormal Occasional [facility] Comment on above: Result Comment: 4+ Squamous Epithelial Cells Glucose Ql (U) Negative Normal Negative [facility] Hemoglobin/Blood,Ur Negative Normal Negative [facility] Ketones Ql (U) Trace Critically abnormal Negative [facility] Leukest 2+ Critically abnormal Negative [facility] Nitrite Ql (U) Negative Normal Negative [facility] pH (U) 7.0 [pH] Normal 5.0-8.0 [facility] Protein, Urine Negative Normal Negative [facility] RBC 0-3 Normal 0-3 [facility] Specific [place], Ur 1.025 Normal 1.005-1.[address] [facility] Urobilinogen Qn (U) 1.0 {José'U}/dL Normal 0.2-1.0 [facility] WBC 6-10 Critically abnormal 0-5 [facility] PROGRESSon 09-19-2019 PROGRESS HNO ID: [id number] Author: Emelia Baldwin Service: ? Author Type: [...] 6 hours as needed. 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 Katelynn Joseph Sec 09/27/2019 2:21 PM Addendum Duane, from [facility], called again, last call 09-16-19, what is the status of [place] forms for patient? Allergies As of Date: 09/13/2019 Noted Allergy Reaction DILAUDID (HYDROMORPHONE (BULK)) 03/28/2019 9 - Itching Date Reviewed: 08/14/2019 Reviewed by: Saskia (Rn) BRANDIE Sharpe - Fully Assessed Reason for Visit: [place] disability [Other] Prescriptions as of 09/13/2019 Sig: [...] Encounter Status:Closed by YONG PADILLA on 09/16/19 [facility] 05-13-2019 ALLIED HEALTH HNO ID: [id number] Author: Uzair Angulo (Tech) Service: Radiology Author Type: Stores Assistant Type: Allied Health Filed: 05/13/2019 10:22 AM [...] Bill King May 13, 2019 10:22 AM [facility] CERVICAL SPINE WO IVCONo n 05-13-2019 [...] vertebrae with counting from the craniocervical junction. Brewery Technician: LISA Transcribe Date/Time: May 13 2019 12:52P Dictated by : JON OSBORNE MD This examination was interpreted and the report reviewed and electronically signed by: JON OSBORNE MD on May 13 2019 1:16PM EST [id number] Normal [facility] Vital Signs Date Time Vital Sign Value Performing Clinician Facility 11-17-2024 13:40-0400 Diastolic blood pressure 76 mm[Hg] Viktor Sotelo MD Work Phone: [facility] 11-17-2024 13:40-0400 Heart rate 84 /min Viktor Sotelo MD Work Phone: [facility] 11-17-2024 13:40-0400 Respiratory rate 16 /min Viktor Sotelo MD Work Phone: [facility] 11-17-2024 13:40-0400 SaO2% (BldA) [Mass fraction] 98 % Viktor Sotelo MD Work Phone: [facility] 11-17-2024 13:40-0400 Systolic blood pressure 120 mm[Hg] Viktor Sotelo MD Work Phone: [facility] 11-17-2024 12:55-0400 Body temperature 97.3 [degF] Viktor Sotelo MD Work Phone: [facility] 11-17-2024 12:55-0400 Inhaled oxygen flow rate 8 L/min Viktor Sotelo MD Work Phone: [facility] 11-17-2024 09:40-0400 Body height 167.64 cm Viktor Sotelo MD Work Phone: [facility] 11-17-2024 09:40-0400 Body weight 117.93 kg Viktor Sotelo MD Work Phone: [facility] 11-07-2024 15:00-0400 Body height 167.64 cm Viktor Sotelo MD Work Phone: [facility] 11-07-2024 15:00-0400 Body mass index (BMI) [Ratio] 41.9 kg/m2 Viktor Sotelo MD Work Phone: [facility] 11-07-2024 15:00-0400 Body temperature 97.5 [degF] Viktor Sotelo MD Work Phone: [facility] 11-07-2024 15:00-0400 Body weight 117.93 kg Viktor Sotelo MD Work Phone: [facility] 11-07-2024 15:00-0400 Diastolic blood pressure 72 mm[Hg] Viktor Sotelo MD Work Phone: [facility] 11-07-2024 15:00-0400 Heart rate 75 /min Viktor Sotelo MD Work Phone: [facility] 11-07-2024 15:00-0400 SaO2% (BldA) [Mass fraction] 99 % Viktor Sotelo MD Work Phone: [facility] 11-07-2024 15:00-0400 Systolic blood pressure 120 mm[Hg] Viktor Sotelo MD Work Phone: [facility] 06-10-2024 09:33-0500 Body height 167.64 cm Viktor Sotelo MD Work Phone: [facility] 06-10-2024 09:33-0500 Body mass index (BMI) [Ratio] 43.4 kg/m2 Viktor Sotelo MD Work Phone: [facility] 06-10-2024 09:33-0500 Body weight 122.01 kg Viktor Sotelo MD Work Phone: [facility] 06-10-2024 09:33-0500 Diastolic blood pressure 66 mm[Hg] Viktor Sotelo MD Work Phone: [facility] 06-10-2024 09:33-0500 Heart rate 93 /min Viktor Sotelo MD Work Phone: [facility] 06-10-2024 09:33-0500 Systolic blood pressure 93 mm[Hg] Viktor Sotelo MD Work Phone: [facility] 11-12-2023 13:23-0400 Body height 167.64 cm MD Viktor Sotelo Work Phone: [facility] 11-12-2023 13:23-0400 Body mass index (BMI) [Ratio] 41.1 kg/m2 MD Viktor Sotelo Work Phone: [facility] 11-12-2023 13:23-0400 Body weight 115.66 kg MD Viktor Sotelo Work Phone: [facility] 11-12-2023 13:23-0400 Diastolic blood pressure 73 mm[Hg] MD Viktor Sotelo Work Phone: [facility] 11-12-2023 13:23-0400 Heart rate 81 /min MD Viktor Sotelo Work Phone: [facility] 11-12-2023 13:23-0400 Systolic blood pressure 108 mm[Hg] MD Viktor Sotelo Work Phone: [facility] 01-21-2023 06:55-0400 Body height 167.64 cm MD Viktor Sotelo Work Phone: [facility] 01-21-2023 06:55-0400 Body weight 108.86 kg MD Viktor Sotelo Work Phone: [facility] 01-20-2023 08:36-0400 Body height 167.64 cm Viktor Sotelo Work Phone: [facility] [address] DO Work Phone: 01-20-2023 08:36-0400 Body mass index (BMI) [Ratio] 39.06 kg/m2 Viktor Sotelo Work Phone: [facility] [address] DO Work Phone: 01-20-2023 08:36-0400 Body surface area Derived from formula 2.17 m2 Viktor Sotelo Work Phone: [facility] [address] DO Work Phone: 01-20-2023 08:36-0400 Body weight 109.77 kg Viktor Sotelo Work Phone: [facility] [address] DO Work Phone: 01-20-2023 08:36-0400 Diastolic blood pressure 80 mm[Hg] Viktor Sotelo Work Phone: [facility] [address] DO Work Phone: 01-20-2023 08:36-0400 Respiratory rate 60 /min Viktor Sotelo Work Phone: [facility] [address] DO Work Phone: 01-20-2023 08:36-0400 Systolic blood pressure 122 mm[Hg] Viktor Sotelo Work Phone: [facility] [address] DO Work Phone: 12-15-2022 09:00-0400 Body weight 109.04 kg MD Viktor Sotelo Work Phone: [facility] 12-15-2022 07:30-0400 Body temperature 97.9 [degF] MD Viktor Sotelo Work Phone: [facility] 12-15-2022 07:30-0400 Diastolic blood pressure 72 mm[Hg] MD Viktor Sotelo Work Phone: [facility] 12-15-2022 07:30-0400 Heart rate 81 /min MD Viktor Sotelo Work Phone: [facility] 12-15-2022 07:30-0400 SaO2% (BldA) [Mass fraction] 100 % MD Viktor Sotelo Work Phone: [facility] 12-15-2022 07:30-0400 Systolic blood pressure 115 mm[Hg] MD Viktor Sotelo Work Phone: [facility] 12-14-2022 20:18-0400 Respiratory rate 16 /min MD Viktor Sotelo Work Phone: [facility] 12-12-2022 13:58-0400 Body height 167.64 cm MD iVktor Sotelo Work Phone: [facility] 12-11-2022 20:49-0400 Diastolic blood pressure 87 mm[Hg] MD Viktor Sotelo Work Phone: [facility] 12-11-2022 20:49-0400 Heart rate 70 /min MD Viktor Sotelo Work Phone: [facility] 12-11-2022 20:49-0400 Respiratory rate 18 /min MD Viktor Sotelo Work Phone: [facility] 12-11-2022 20:49-0400 SaO2% (BldA) [Mass fraction] 99 % MD Viktor Sotelo Work Phone: [facility] 12-11-2022 20:49-0400 Systolic blood pressure 132 mm[Hg] MD Viktor Sotelo Work Phone: [facility] 12-11-2022 17:43-0400 Body height 167.64 cm MD Viktor Sotelo Work Phone: [facility] 12-11-2022 17:43-0400 Body temperature 97.7 [degF] MD Viktor Sotelo Work Phone: [facility] 12-11-2022 17:43-0400 Body weight 108.86 kg MD Viktor Sotelo Work Phone: [facility] 11-01-2022 07:24-0400 Body temperature 97.6 [degF] MD Viktor Sotelo Work Phone: [facility] 11-01-2022 07:24-0400 Diastolic blood pressure 66 mm[Hg] MD Viktor Sotelo Work Phone: [facility] 11-01-2022 07:24-0400 Heart rate 67 /min MD Viktor Sotelo Work Phone: [facility] 11-01-2022 07:24-0400 Respiratory rate 16 /min MD Viktor Sotelo Work Phone: [facility] 11-01-2022 07:24-0400 SaO2% (BldA) [Mass fraction] 95 % MD Viktor Sotelo Work Phone: [facility] 11-01-2022 07:24-0400 Systolic blood pressure 104 mm[Hg] MD Viktor Sotelo Work Phone: [facility] 10-31-2022 14:36-0400 Body height 167.64 cm MD Viktor Sotelo Work Phone: [facility] 10-28-2022 19:02-0400 Body weight 110.67 kg MD Viktor Sotelo Work Phone: [facility] 10-28-2022 17:56-0400 Diastolic blood pressure 66 mm[Hg] MD Viktor Sotelo Work Phone: [facility] 10-28-2022 17:56-0400 Heart rate 57 /min MD Viktor Sotelo Work Phone: [facility] 10-28-2022 17:56-0400 Respiratory rate 16 /min MD Viktor Sotelo Work Phone: [facility] 10-28-2022 17:56-0400 SaO2% (BldA) [Mass fraction] 97 % MD Viktor Sotelo Work Phone: [facility] 10-28-2022 17:56-0400 Systolic blood pressure 132 mm[Hg] MD Viktor Sotelo Work Phone: [facility] 10-28-2022 14:47-0400 Body height 167.64 cm MD Viktor Sotelo Work Phone: [facility] 10-28-2022 14:47-0400 Body temperature 97.8 [degF] MD Viktor Sotelo Work Phone: [facility] 10-28-2022 14:47-0400 Body weight 111.25 kg MD Viktor Sotelo Work Phone: [facility] 10-18-2022 19:10-0400 Diastolic blood pressure 84 mm[Hg] MD Viktor Sotelo Work Phone: [facility] 10-18-2022 19:10-0400 Heart rate 71 /min MD Viktor Sotelo Work Phone: [facility] 10-18-2022 19:10-0400 Respiratory rate 18 /min MD Viktor Sotelo Work Phone: [facility] 10-18-2022 19:10-0400 SaO2% (BldA) [Mass fraction] 97 % MD Viktor Sotelo Work Phone: [facility] 10-18-2022 19:10-0400 Systolic blood pressure 141 mm[Hg] MD Viktor Sotelo Work Phone: [facility] 10-18-2022 16:53-0400 Body temperature 98 [degF] MD Viktor Sotelo Work Phone: [facility] 10-18-2022 16:51-0400 Body height 167.64 cm MD Viktor Sotelo Work Phone: [facility] 10-18-2022 16:51-0400 Body weight 112 kg MD Viktor Sotelo Work Phone: [facility] 09-28-2022 22:35-0400 Diastolic blood pressure 81 mm[Hg] MD Viktor Sotelo Work Phone: [facility] 09-28-2022 22:35-0400 Heart rate 97 /min MD Viktor Sotelo Work Phone: [facility] 09-28-2022 22:35-0400 Respiratory rate 18 /min MD Viktor Sotelo Work Phone: [facility] 09-28-2022 22:35-0400 SaO2% (BldA) [Mass fraction] 96 % MD Viktor Sotelo Work Phone: [facility] 09-28-2022 22:35-0400 Systolic blood pressure 131 mm[Hg] MD Viktor Sotelo Work Phone: [facility] 09-28-2022 21:15-0400 Body temperature 100.7 [degF] MD Viktor Sotelo Work Phone: [facility] 09-28-2022 19:07-0400 Body height 167.64 cm MD Viktor Sotelo Work Phone: [facility] 09-28-2022 19:07-0400 Body weight 114 kg MD Viktor Sotelo Work Phone: [facility] 09-07-2022 15:07-0400 Body temperature 97.8 [degF] MD Viktor Sotelo Work Phone: [facility] 09-07-2022 15:07-0400 Diastolic blood pressure 60 mm[Hg] MD Viktor Sotelo Work Phone: [facility] 09-07-2022 15:07-0400 Heart rate 78 /min MD Viktor Sotelo Work Phone: [facility] 09-07-2022 15:07-0400 SaO2% (BldA) [Mass fraction] 96 % MD Viktor Sotelo Work Phone: [facility] 09-07-2022 15:07-0400 Systolic blood pressure 100 mm[Hg] MD Viktor Sotelo Work Phone: [facility] 09-07-2022 07:30-0400 Respiratory rate 16 /min MD Viktor Sotelo Work Phone: [facility] 09-04-2022 14:15-0400 Body height 167.64 cm MD Viktor Sotelo Work Phone: [facility] 09-04-2022 02:40-0400 Body weight 111.13 kg MD Viktor Sotelo Work Phone: [facility] 08-13-2022 08:18-0500 Body temperature 98.1 [degF] MD Viktor Sotelo Work Phone: [facility] 08-13-2022 08:18-0500 Diastolic blood pressure 82 mm[Hg] MD Viktor Sotelo Work Phone: [facility] 08-13-2022 08:18-0500 Heart rate 60 /min MD Viktor Sotelo Work Phone: [facility] 08-13-2022 08:18-0500 Respiratory rate 16 /min MD Viktor Sotelo Work Phone: [facility] 08-13-2022 08:18-0500 SaO2% (BldA) [Mass fraction] 96 % MD Viktor Sotelo Work Phone: [facility] 08-13-2022 08:18-0500 Systolic blood pressure 126 mm[Hg] MD Viktor Sotelo Work Phone: [facility] 08-11-2022 21:50-0500 Body height 167.64 cm MD Viktor Sotelo Work Phone: [facility] 08-11-2022 21:50-0500 Body weight 114.75 kg MD Viktor Sotelo Work Phone: [facility] 08-05-2022 09:27-0500 Body temperature 98.1 [degF] MD Viktor Sotelo Work Phone: [facility] 08-05-2022 09:27-0500 Respiratory rate 16 /min MD Viktor Sotelo Work Phone: [facility] 08-05-2022 09:07-0500 Diastolic blood pressure 74 mm[Hg] MD Viktor Sotelo Work Phone: [facility] 08-05-2022 09:07-0500 Heart rate 83 /min MD Viktor Sotelo Work Phone: [facility] 08-05-2022 09:07-0500 Systolic blood pressure 124 mm[Hg] MD Viktor Sotelo Work Phone: [facility] 08-05-2022 09:05-0500 Body height 167.64 cm MD Viktor Sotelo Work Phone: [facility] 08-05-2022 09:05-0500 Body weight 115.21 kg MD Viktor Sotelo Work Phone: [facility] 08-02-2022 12:30-0500 Diastolic blood pressure 79 mm[Hg] MD Viktor Sotelo Work Phone: [facility] 08-02-2022 12:30-0500 Heart rate 68 /min MD Viktor Sotelo Work Phone: [facility] 08-02-2022 12:30-0500 Systolic blood pressure 143 mm[Hg] MD Viktor Sotelo Work Phone: [facility] 08-02-2022 12:15-0500 Respiratory rate 18 /min MD Viktor Sotelo Work Phone: [facility] 08-02-2022 10:30-0500 Body temperature 97.2 [degF] MD Viktor Sotelo Work Phone: [facility] 08-02-2022 08:36-0500 SaO2% (BldA) [Mass fraction] 94 % MD Viktor Sotelo Work Phone: [facility] 08-01-2022 22:01-0500 Body height 167.64 cm MD Viktor Sotelo Work Phone: [facility] 08-01-2022 22:01-0500 Body weight 115.21 kg MD Viktor Sotelo Work Phone: [facility] 07-22-2022 10:12-0500 Body height 167.64 cm Viktor Sotelo Work Phone: [facility] [address] DO Work Phone: 07-22-2022 10:12-0500 Body mass index (BMI) [Ratio] 41.8 kg/m2 Viktor Sotelo Work Phone: [facility] [address] DO Work Phone: 07-22-2022 10:12-0500 Body surface area Derived from formula 2.23 m2 Viktor Sotelo Work Phone: [facility] [address] DO Work Phone: 07-22-2022 10:12-0500 Body weight 117.48 kg Viktor Sotelo Work Phone: [facility] [address] DO Work Phone: 07-22-2022 10:12-0500 Diastolic blood pressure 72 mm[Hg] Viktor Sotelo Work Phone: [facility] [address] DO Work Phone: 07-22-2022 10:12-0500 Heart rate 73 /min Viktor Sotelo Work Phone: [facility] [address] DO Work Phone: 07-22-2022 10:12-0500 Systolic blood pressure 114 mm[Hg] Viktor Sotelo Work Phone: [facility] [address] DO Work Phone: 07-17-2022 15:30-0500 Body temperature 97.9 [degF] MD Viktor Sotelo Work Phone: [facility] 07-17-2022 15:30-0500 Diastolic blood pressure 68 mm[Hg] MD Viktor Sotelo Work Phone: [facility] 07-17-2022 15:30-0500 Heart rate 78 /min MD Viktor Sotelo Work Phone: [facility] 07-17-2022 15:30-0500 Respiratory rate 18 /min MD Viktor Sotelo Work Phone: [facility] 07-17-2022 15:30-0500 SaO2% (BldA) [Mass fraction] 100 % MD Viktor Sotelo Work Phone: [facility] 07-17-2022 15:30-0500 Systolic blood pressure 149 mm[Hg] MD Viktor Sotelo Work Phone: [facility] 07-16-2022 16:29-0500 Body height 167.64 cm MD Viktor Sotelo Work Phone: [facility] 07-15-2022 13:12-0500 Body weight 115.66 kg MD Viktor Sotelo Work Phone: [facility] 07-15-2022 10:53-0500 Body height 167.64 cm MD Viktor Sotelo Work Phone: [facility] 07-15-2022 10:53-0500 Body temperature 98.7 [degF] MD Viktor Sotelo Work Phone: [facility] 07-15-2022 10:53-0500 Body weight 115.85 kg MD Viktor Sotelo Work Phone: [facility] 07-15-2022 10:53-0500 Diastolic blood pressure 80 mm[Hg] MD Viktor Sotelo Work Phone: [facility] 07-15-2022 10:53-0500 Heart rate 72 /min MD Viktor Sotelo Work Phone: [facility] 07-15-2022 10:53-0500 Respiratory rate 20 /min MD Viktor Sotelo Work Phone: [facility] 07-15-2022 10:53-0500 SaO2% (BldA) [Mass fraction] 98 % MD Viktor Sotelo Work Phone: [facility] 07-15-2022 10:53-0500 Systolic blood pressure 149 mm[Hg] MD Viktor Sotelo Work Phone: [facility] 07-09-2022 13:38-0500 Diastolic blood pressure 71 mm[Hg] MD Viktor Sotelo Work Phone: [facility] 07-09-2022 13:38-0500 Heart rate 85 /min MD Viktor Sotelo Work Phone: [facility] 07-09-2022 13:38-0500 Systolic blood pressure 109 mm[Hg] MD Viktor Sotelo Work Phone: [facility] 07-09-2022 11:35-0500 Body temperature 98.1 [degF] MD Viktor Sotelo Work Phone: [facility] 07-09-2022 11:35-0500 Respiratory rate 18 /min MD Viktor Sotelo Work Phone: [facility] 07-09-2022 11:35-0500 SaO2% (BldA) [Mass fraction] 97 % MD Viktor Sotelo Work Phone: [facility] 06-26-2022 22:17-0500 Respiratory rate 16 /min MD Viktor Sotelo Work Phone: [facility] 06-26-2022 21:54-0500 Body temperature 97.3 [degF] MD Viktor Sotelo Work Phone: [facility] 06-26-2022 21:53-0500 Diastolic blood pressure 81 mm[Hg] MD Viktor Sotelo Work Phone: [facility] 06-26-2022 21:53-0500 Heart rate 83 /min MD Viktor Sotelo Work Phone: [facility] 06-26-2022 21:53-0500 Systolic blood pressure 132 mm[Hg] MD Viktor Sotelo Work Phone: [facility] 06-26-2022 21:37-0500 Body height 167.64 cm MD Viktor Sotelo Work Phone: [facility] 06-26-2022 21:37-0500 Body weight 117.93 kg MD Viktor Sotelo Work Phone: [facility] 06-25-2022 22:03-0500 Diastolic blood pressure 78 mm[Hg] MD Viktor Sotelo Work Phone: [facility] 06-25-2022 22:03-0500 Heart rate 90 /min MD Viktor Sotelo Work Phone: [facility] 06-25-2022 22:03-0500 Respiratory rate 18 /min MD Viktor Sotelo Work Phone: [facility] 06-25-2022 22:03-0500 SaO2% (BldA) [Mass fraction] 97 % MD Viktor Sotelo Work Phone: [facility] 06-25-2022 22:03-0500 Systolic blood pressure 127 mm[Hg] MD Viktor Sotelo Work Phone: [facility] 06-25-2022 17:29-0500 Body height 167.64 cm MD Viktor Sotelo Work Phone: [facility] 06-25-2022 17:29-0500 Body temperature 98.3 [degF] MD Viktor Sotelo Work Phone: [facility] 06-25-2022 17:29-0500 Body weight 117 kg MD Viktor Sotelo Work Phone: [facility] 06-25-2022 12:40-0500 Body temperature 97.9 [degF] MD Viktor Sotelo Work Phone: [facility] 06-25-2022 12:40-0500 Diastolic blood pressure 80 mm[Hg] MD Viktor Sotelo Work Phone: [facility] 06-25-2022 12:40-0500 Heart rate 66 /min MD Viktor Sotelo Work Phone: [facility] 06-25-2022 12:40-0500 Respiratory rate 18 /min MD Viktor Sotelo Work Phone: [facility] 06-25-2022 12:40-0500 SaO2% (BldA) [Mass fraction] 98 % MD Viktor Sotelo Work Phone: [facility] 06-25-2022 12:40-0500 Systolic blood pressure 129 mm[Hg] MD Viktor Sotelo Work Phone: [facility] 02-13-2022 07:45-0400 60 1 Viktor Sotelo Work Phone: [facility] [address] [place] Work Phone: Comment on above: [id number] 01-20-2022 19:14-0400 Diastolic blood pressure 64 mm[Hg] MD Viktor Sotelo Work Phone: [facility] 01-20-2022 19:14-0400 Heart rate 64 /min MD Viktor Sotelo Work Phone: [facility] 01-20-2022 19:14-0400 Respiratory rate 18 /min MD Viktor Sotelo Work Phone: [facility] 01-20-2022 19:14-0400 SaO2% (BldA) [Mass fraction] 100 % MD Viktor Sotelo Work Phone: [facility] 01-20-2022 19:14-0400 Systolic blood pressure 107 mm[Hg] MD Viktor Sotelo Work Phone: [facility] 01-20-2022 14:29-0400 Body temperature 98.4 [degF] MD Viktor Sotelo Work Phone: [facility] 01-20-2022 13:07040 Body height 167.64 cm MD Viktor Sotelo Work Phone: [facility] 01-20-2022 13:040 Body weight 102.4 kg MD Viktor Sotelo Work Phone: [facility] 01-14-2022 10:20-0400 Diastolic blood pressure 74 mm[Hg] Viktor Sotelo Work Phone: [facility] [address] DO Work Phone: 01-14-2022 10:20-0400 Heart rate 65 /min Viktor Sotelo Work Phone: [facility] [address] DO Work Phone: 01-14-2022 10:20-0400 Systolic blood pressure 110 mm[Hg] Viktor Sotelo Work Phone: [facility] [address] DO Work Phone: 01-14-2022 10:19-0400 Body height 167.64 cm Viktor Sotelo Work Phone: [facility] [address] DO Work Phone: 01-14-2022 10:19-0400 Body mass index (BMI) [Ratio] 36.68 kg/m2 Viktor Sotelo Work Phone: [facility] [address] DO Work Phone: 01-14-2022 10:19-0400 Body surface area Derived from formula 2.11 m2 Viktor Sotelo Work Phone: [facility] [address] DO Work Phone: 01-14-2022 10:19-0400 Body weight 103.08 kg Viktor Sotelo Work Phone: [facility] [address] DO Work Phone: 12-11-2021 07:30-0400 Body temperature 98.4 [degF] MD Viktor Sotelo Work Phone: [facility] 12-11-2021 07:30-0400 Diastolic blood pressure 66 mm[Hg] MD Viktor Sotelo Work Phone: [facility] 12-11-2021 07:30-0400 Heart rate 86 /min MD Viktor Sotelo Work Phone: [facility] 12-11-2021 07:30-0400 Respiratory rate 16 /min MD Viktor Sotelo Work Phone: [facility] 12-11-2021 07:30-0400 SaO2% (BldA) [Mass fraction] 95 % MD Viktor Sotelo Work Phone: [facility] 12-11-2021 07:30-0400 Systolic blood pressure 128 mm[Hg] MD Viktor Sotelo Work Phone: [facility] 12-10-2021 15:45-0400 Body height 167.64 cm MD Viktor Sotelo Work Phone: [facility] 12-09-2021 14:00-0400 Body mass index (BMI) [Ratio] 35.4 kg/m2 MD Viktor Sotelo Work Phone: [facility] 12-09-2021 09:00-0400 Body weight 99.75 kg MD Viktor Sotelo Work Phone: [facility] 04-30-2021 13:15-0500 Body height 167.64 cm Viktor Sotelo Work Phone: [facility]Lllateqxdtox[facility] Work Phone: 04-30-2021 13:15-0500 Body mass index (BMI) [Ratio] 31.47 kg/m2 Viktor Sotelo Work Phone: [facility]Hbnfipbzuwrf-[facility] Work Phone: 04-30-2021 13:15-0500 Body surface area Derived from formula 1.98 m2 Viktor Sotelo Work Phone: MD-Mhyiiahsjlks-XNE Work Phone: 04-30-2021 13:15-0500 Body weight 88.45 kg Viktor Sotelo Work Phone: MQ-Vvnrldkqdthr-YLF Work Phone: 04-30-2021 13:15-0500 Diastolic blood pressure 82 mm[Hg] Viktor Sotelo Work Phone: CG-Yoemjkyffzpx-IYP Work Phone: 04-30-2021 13:15-0500 Heart rate 70 /min Viktor Sotelo Work Phone: DP-Nhguicvuwgbk-LXY Work Phone: 04-30-2021 13:15-0500 Respiratory rate 18 /min Viktor Sotelo Work Phone: LT-Ytucbyfwfuzh-NXP Work Phone: 04-30-2021 13:15-0500 Systolic blood pressure 118 mm[Hg] Viktor Sotelo Work Phone: LK-Lfaqaiucycmj-QON Work Phone: 05-25-2020 17:24-0500 SaO2% (BldA) [Mass fraction] 64 % [facility] Encounters Encounter Date Encounter Type Care Provider Facility Start: 04-04-2025 ambulatory Viktor Sotelo Facility :[facility] Start: 03-15-2025 End: 03-15-2025 ambulatory [facility] Start: 03-15-2025 End: 03-15-2025 Subsequent hospital visit by physician Alondra Brewer [facility] Comment on above: Pacemaker; Sick sinus syndrome (Multi) Start: 01-02-2025 End: 01-02-2025 ambulatory Michael VIVEROS Facility: [facility] Start: 01-02-2025 End: 01-02-2025 Patient encounter procedure ESTELA CHUNG [facility] Start: 12-07-2024 End: 12-07-2024 ambulatory RITA [facility] Start: 12-07-2024 End: 12-07-2024 Subsequent hospital visit by physician Alondra Device Remote [facility] Comment on above: Pacemaker; Sick sinus syndrome (Multi) Start: 11-17-2024 Non-patient / Non-visit Viktor Sotelo MD Work Phone: [facility] Physician [facility] Vascular Surg Work Phone: Start: 11-17-2024 End: 11-17-2024 Admission to same day surgery center Viktor Sotelo MD Work Phone: [facility]-Surgery [place] Start: 11-17-2024 End: 11-17-2024 ambulatory Viktor Sotelo MD Work Phone: [facility] Work Phone: Start: 11-15-2024 Registered Recurring Viktor jenkins MD Work Phone: [facility] Start: 11-07-2024 End: 11-07-2024 Patient encounter procedure Viktor Sotelo MD Work Phone: [facility] Vascular Surgery [place] Work Phone: Start: 10-31-2024 Non-patient / Non-visit Viktor Sotelo MD Work Phone: [facility] Physician [facility] Work Phone: Start: 09-26-2024 Non-patient / Non-visit Viktor Sotelo MD Work Phone: [facility] Work Phone: Start: 09-26-2024 End: 09-26-2024 ambulatory Tete Snell MD Facility:[facility] Start: 08-31-2024 End: 08-31-2024 Subsequent hospital visit by physician Alondra Device Remote [facility] Comment on above: Pacemaker; Sick sinus syndrome (Multi) Start: 08-31-2024 End: 08-31-2024 Patient encounter procedure Viktor Sotelo MD Work Phone: [facility] [place] Work Phone: Start: 08-31-2024 End: 08-31-2024 ambulatory Viktor Sotelo MD Work Phone: [facility] Work Phone: Start: 08-24-2024 End: 08-24-2024 ambulatory Viktor Sotelo Facility:[facility] Start: 08-24-2024 Non-patient / Non-visit Viktor Sotelo MD Work Phone: [facility] Start: 08-23-2024 Registered Recurring Viktor jenkins MD Work Phone: [facility] Start: 07-25-2024 End: 07-25-2024 ambulatory Tete Snell MD Facility: [facility] Start: 07-11-2024 Non-patient / Non-visit Viktor Sotelo MD Work Phone: [facility] Physician [facility] Work Phone: Start: 07-11-2024 End: 07-11-2024 ambulatory Tete Snell MD Facility:[facility] [place] Start: 07-05-2024 End: 07-05-2024 ambulatory Michael VIVEROS Facility[facility] Start: 07-05-2024 End: 07-05-2024 Patient encounter procedure Michael VIVEROS [facility] Start: 07-05-2024 Non-patient / Non-visit Viktor Sotelo MD Work Phone: [facility] Physician [facility] Work Phone: Start: 07-04-2024 End: 07-04-2024 Patient encounter procedure Viktor Sotelo MD Work Phone: [facility]-CT Scan [place] Work Phone: Start: 07-04-2024 End: 07-04-2024 ambulatory Viktor Sotelo MD Work Phone: [facility] Work Phone: Start: 06-27-2024 End: 06-27-2024 ambulatory Tete Snell MD Facility:[facility] Start: 06-21-2024 Registered Recurring Viktor jenkins MD Work Phone: [facility]- Credible Start: 06-10-2024 End: 06-10-2024 Patient encounter procedure Viktor Sotelo MD Work Phone: [facility] Physician [facility] Work Phone: Start: 06-02-2024 End: 06-02-2024 ambulatory ESTELASTEPHENIE CHUNG Facility: [facility] Start: 06-02-2024 End: 06-02-2024 Patient encounter procedure ESTELA E SHELDON [facility] Start: 06-02-2024 Non-patient / Non-visit Viktor Sotelo MD Work Phone: [facility] Physician [facility] Work Phone: Start: 05-30-2024 End: 05-30-2024 Patient encounter procedure Viktor Sotelo MD Work Phone: [facility]-Ultrasound [place] Work Phone: Start: 05-30-2024 End: 05-30-2024 ambulatory Viktor Sotelo Facility:[facility] Start: 05-30-2024 End: 05-30-2024 ambulatory ESTELA E SHELDON Facility: [place] Start: 05-30-2024 End: 05-30-2024 Patient encounter procedure ESTELA E SHELDON [facility] Start: 05-25-2024 End: 05-25-2024 ambulatory RITA [facility] Start: 05-25-2024 End: 05-25-2024 Subsequent hospital visit by physician Alondra Device Remote [facility] Comment on above: Pacemaker; Sick sinus syndrome (Multi) Start: 05-03-2024 End: 05-03-2024 ambulatory ESTELA Sulema CHUNG Facility:[facility] Start: 05-03-2024 End: 05-03-2024 Patient encounter procedure ESTELA CHUNG [facility] Start: 02-10-2024 End: 02-10-2024 Subsequent hospital visit by physician Alondra Device Remote [facility] Comment on above: Pacemaker; Sick sinus syndrome (Multi) Start: 11-12-2023 End: 11-12-2023 ambulatory MD Viktor Sotelo Work Phone: [facility] Work Phone: Start: 11-12-2023 End: 11-12-2023 Patient encounter procedure MD Viktor Sotelo Work Phone: [facility] Physician [facility] Work Phone: Start: 11-09-2023 Registered Recurring MD Viktor Sotelo Work Phone: [facility] Start: 11-04-2023 End: 11-04-2023 Subsequent hospital visit by physician Alondra Device Remote [facility] Comment on above: Pacemaker; Sick sinus syndrome (Multi) Start: 10-29-2023 End: 10-31-2023 Evaluation and management of inpatient VIKTOR SOTELO [facility] Start: 10-29-2023 Non-patient / Non-visit MD Viktor Sotelo Work Phone: [facility] Physician [facility] Work Phone: Start: 10-28-2023 Non-patient / Non-visit MD Viktor Sotelo Work Phone: [facility] Physician [facility] Work Phone: Start: 10-27-2023 Non-patient / Non-visit MD Viktor Sotelo Work Phone: [facility] Physician [facility] Work Phone: Start: 10-26-2023 Non-patient / Non-visit MD Viktor Sotelo Work Phone: [facility] Work Phone: Start: 07-29-2023 End: 07-29-2023 Subsequent hospital visit by physician Alondra Device Remote [facility] Comment on above: Pacemaker; Sick sinus syndrome (CMS/HCC) Start: 04-28-2023 End: 04-28-2023 Patient encounter procedure ESTELA CHUNG [facility] Start: 04-24-2023 End: 04-24-2023 Subsequent hospital visit by physician Alondra Device Remote [facility] Comment on above: Pacemaker; Sick sinus syndrome (CMS/HCC) Start: 01-21-[address] Viktor Sotelo Facility:[id number] Start: 01-21-2023 End: 01-21-2023 ambulatory MD Viktor Sotelo Work Phone: [facility] Work Phone: Start: 01-21-2023 End: 01-21-2023 Patient encounter procedure MD Viktor Sotelo Work Phone: [facility]-MRI [place] Work Phone: Start: 01-20-2023 Current tobacco non-user cad cap copd pv josh Sotelo Work Phone: [facility] [address] DO Work Phone: Start: 01-20-[address] Viktor Sotelo Facility:[id number] Start: 12-19-[address] Viktor Sotelo Facility:[id number] Start: 12-19-2022 End: 12-19-2022 ambulatory MD Viktor Sotelo Work Phone: [facility] Work Phone: Start: 12-19-2022 End: 12-19-2022 Patient encounter procedure MD Viktor Sotelo Work Phone: [facility]-Pacemaker Check Start: 12-11-2022 End: 12-15-2022 Evaluation and management of inpatient MD Viktor Sotelo Work Phone: [facility]-1 [facility] Work Phone: Start: 12-09-2022 End: 12-09-2022 Patient encounter procedure Michael Johnson GUILLE [facility] Start: 11-03-2022 Registered Recurring MD Viktor Sotelo Work Phone: [facility]- [facility] Start: 10-28-2022 End: 11-01-2022 Evaluation and management of inpatient MD Viktor Sotelo Work Phone: [facility]-1 [facility] Work Phone: Start: 10-28-2022 Registered Recurring MD Viktor Sotelo Work Phone: [facility]- [facility] Start: 10-21-[address] Viktor Sotelo Facility:[id number] Start: 10-18-2022 End: 10-18-2022 Emergency department patient visit MD Viktor Sotelo Work Phone: [facility]-Emergency Room Work Phone: Start: 10-16-2022 End: 10-16-2022 ambulatory KRISTA HARVEY . Facility:[id number] Start: 09-28-2022 End: 09-28-2022 Emergency department patient visit MD Viktor Sotelo Work Phone: [facility]-Emergency Room Work Phone: Start: 09-03-2022 End: 09-07-2022 Evaluation and management of inpatient MD Viktor Sotelo Work Phone: [facility]-1 [facility] Work Phone: Start: 09-03-2022 End: 09-03-2022 Patient encounter procedure ESTELA CHUNG [facility] Start: 08-11-2022 End: 08-13-2022 Evaluation and management of inpatient MD Viktor Sotelo Work Phone: [facility]-3 [facility] Post Work Phone: Start: 08-05-2022 End: 08-05-2022 ambulatory MD Viktor Sotelo Work Phone: [facility] Work Phone: Start: 08-05-2022 End: 08-05-2022 Patient encounter procedure MD Viktor Sotelo Work Phone: [facility]-3 [facility] Labor - O/P Start: 08-01-2022 End: 08-02-2022 Evaluation and management of inpatient MD Viktor Sotelo Work Phone: [facility]-3 [facility] Labor and Delivery Work Phone: Start: 07-25-2022 End: 07-25-2022 ambulatory MD Viktor Sotelo Work Phone: [facility] Work Phone: Start: 07-25-2022 End: 07-25-2022 Departed Referred MD Viktor Sotelo Work Phone: [facility]-Lab [place] Work Phone: Start: 07-22-2022 Current tobacco non-user cad cap copd pv dm Viktor Sotelo Work Phone: [facility] [address] DO Work Phone: Start: 07-22-[address] Viktor Sotelo Facility:[id number] Start: 07-15-2022 End: 07-17-2022 Evaluation and management of inpatient MD Viktor Sotelo Work Phone: [facility]-1 [facility] Work Phone: Start: 07-09-2022 End: 07-09-2022 ambulatory MD Viktor Sotelo Work Phone: [facility] Work Phone: Start: 07-09-2022 End: 07-09-2022 Discharged Recurring MD Viktor Sotelo Work Phone: [facility]-Infusion Therapy - O/P Work Phone: Start: 06-30-2022 End: 06-30-2022 ambulatory MD Viktor Sotelo Work Phone: [facility] Work Phone: Start: 06-30-2022 End: 06-30-2022 Patient encounter procedure MD Viktor Sotelo Work Phone: [facility]-Lab [place] Work Phone: Start: 06-26-2022 End: 06-26-2022 ambulatory MD Viktor Sotelo Work Phone: [facility] Work Phone: Start: 06-26-2022 End: 06-26-2022 Patient encounter procedure MD Viktor Sotelo Work Phone: [facility]-3 [place] Labor - O/P Start: 06-25-2022 End: 06-25-2022 Emergency department patient visit MD Viktor Sotelo Work Phone: [facility]-Emergency Room Work Phone: Start: 06-25-2022 Registered Recurring MD Viktor Sotelo Work Phone: [facility]-Infusion Therapy - O/P Work Phone: Start: 04-28-2022 End: 04-29-[address] VIKTOR SOTELO Facility: Start: 04-17-[address] Viktor Sotelo Facility:[id number] Start: 02-14-2022 Chart Update Viktor Sotelo Work Phone: [facility]-[place] [address] DO Work Phone: Start: 02-13-2022 Patient encounter procedure Viktor Sotelo Work Phone: [facility] [address] [place] Work Phone: Start: 02-13-[address] Rita Olivia Facility:[id number] Start: 01-20-2022 End: 01-20-2022 Emergency department patient visit MD Viktor Sotelo Work Phone: [facility]-Emergency Room Start: 01-14-2022 Current tobacco non-user cad cap copd pv dm Viktor Sotelo Work Phone: [facility]-[place] [address] DO Work Phone: Start: 12-18-2021 ambulatory Clemente simmons MD Work Phone: General Surgery Comment on above: Port Start: 12-16-2021 End: 12-16-2021 Patient encounter procedure MD Viktor Sotelo Work Phone: [facility] Start: 12-08-2021 End: 12-11-2021 Evaluation and management of inpatient MD Viktor Sotelo Work Phone: [address] Start: 09-18-2021 Telephone encounter Clemente Bernstein MD Work Phone: Gastroenterology Comment on above: Patient Update Start: 07-19-2021 Result Review Viktor Sotelo Work Phone: [id number] Work Phone: Start: 04-30-2021 Current tobacco non-user cad cap copd pv josh Sotelo Work Phone: [id number] Work Phone: Start: 03-20-2021 Patient encounter procedure Viktor Sotelo Work Phone: [facility] [address] Work Phone: Start: 01-24-2020 End: 01-25-2020 Patient encounter procedure ROSELINE DECKER [facility] Start: 01-24-2020 End: 01-24-2020 Subsequent hospital visit by physician [facility] Schedule [facility] Comment on above: Arrived [...] 2) Zoste r Vaccines (1 of 2) [facility] Start: 02-20-2025 COVID-19 Vaccine ( season) COVID-19 Vaccine ( season) [facility] Start: 02-20-2025 Influenza vaccination [facility] Start: 11-17-2024 [facility] Start: 11-17-2024 [facility] Start: 02-21-2024 COVID-19 Vaccine ( season) COVID-19 Vaccine () [facility] Start: 02-21-2024 Influenza vaccination [facility] Start: 07-07-2023 FUV, Provider: Rita Olivia, Status: Pen, Time: 8:40 AM FUV, Provider: Rita Olivia, Status: Pen, Time: 8:40 AM [facility] [address] DO Work Phone: Start: 07-07-2023 End: 07-07-2023 Patient encounter procedure 07/07/2023 8:40 AM EST Office Visit [facility] [address] [place] [address] Rita Olivia MD [address] [facility] [address], [place] [place], [place] [id number] [facility] Start: 02-20-2023 COVID-19 Vaccine ( season) COVID-19 Vaccine ( season) [facility] Start: 02-20-2023 Influenza vaccination Influenza Vacc ine (#1) [facility] Start: 01-20-2023 FUV, Provider: Rita Olivia, Status: Pen, Time: 8:40 AM FUV, Provider: Rita Olivia, Status: Pen, Time: 8:40 AM [facility] [address] DO Work Phone: Start: 01-20-2023 Patient encounter procedure FUVPACEMKR, Provider: [facility], Status: Pen, Time: 8:00 AM [facility] [address] DO Work Phone: Start: 12-15-2022 [facility] Start: 12-11-2022 Referral to Wax Blender [facility] Start: 12-11-2022 Hospital admission [facility] Start: 12-11-2022 Bacteria identified in Urine by Culture Urine Culture [facility] Start: 11-01-2022 [facility] Start: 10-31-2022 Administration of prophylactic treatment [facility] Start: 2022 Screening for malign ant neoplasm of breast Mammogram [facility] Start: 10-29-2022 Referral to clinical grinder and honer operator automatic [facility] Start: 10-28-2022 Referral to [facility] Start: 10-28-2022 Hospital admission [facility] Start: 10-28-2022 Bacteria identified in Urine by Culture [facility] Start: 09-28-2022 CT angiography of thorax CT an ignacia chest PE protocol [facility] Start: 09-28-2022 CT Chest [facility] Start: 09-28-2022 Plain chest X-ray XR chest 2V* [facility] Start: 09-28-2022 XR [address] [facility] Start: 09-28-2022 Bacteria identified in Urine by Culture [facility] Start: 09-07-2022 [facility] Start: 09-03-2022 Hospital admission [facility] Start: 08-13-2022 [facility] Start: 08-12-2022 Referral to psychiatrist [facility] Start: 08-12-2022 Hospital admission [facility] Start: 08-11-2022 Extraction of Produc ts of Conception, Low Forceps, Via Natural or Artificial Opening Extraction of Products of Conception, Low Forceps, Via Natural or Artificial Opening [facility] Start: 08-05-2022 [facility] Start: 08-02-2022 [facility] Start: 08-02-2022 Referral to neurologist [facility] Start: 08-02-2022 Hospital admission [facility] Start: 08-02-2022 [facility] Start: 08-01-2022 Hospital admission [facility] Start: 08-01-2022 Bacteria identified in Urine by Culture [facility] Start: 07-25-2022 Group B Streptococcu s Culture Group B Streptococcus Culture [facility] Start: 07-22-2022 FUV, Provider: Rita Olivia, Status: Pen, Time: 9:40 AM FUV, Provider: Rita Olivia, Status: Pen, Time: 9:40 AM [facility] [address] DO Work Phone: Start: 07-17-2022 [facility] Start: 07-15-2022 Bacteria identified in Urine by Culture [facility] Start: 07-15-2022 Referral to Wax Blender [facility] Start: 07-15-2022 Sleep disorder assessment [facility] Start: 07-15-2022 Hospital admission [facility] Start: 06-26-2022 [facility] Start: 06-26-2022 Hospital admission [facility] Start: 06-26-2022 [facility] Start: 06-26-2022 Bacteria identified in Urine by Culture [facility] Start: 06-25-2022 Bacteria identified in Urine by Culture [facility] Start: 02-20-2022 Influenza vaccination INFLUENZA (#1) [facility] Start: 02-13-2022 ECHO, Provider: EDSON DUNN [facility] [id number], Status: Pen, Time: 7:45 AM ECHO, Provider: ЕКАТЕРИНА [facility] 01,[id number], Status: Pen, Time: 7:45 AM -[facility] [address] DO Work Phone: Start: 12-11-2021 [facility] Work Phone: Start: 12-10-2021 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 technician [facility] Work Phone: Start: 12-09-2021 Hospital admission [facility] Work Phone: Start: 07-09-2021 Patient encounter procedure FUVPACEMKR, Provider: [facility]CHRISSI[facility], Status: Pen, Time: 10:20 AM [id number] C Work Phone: Start: 06-20-2021 Diabetes mellitus screening Diabetes Screening [facility] Start: 06-19-2021 EPVNEURO, Provider: Dennis Almendarez, Status: Pen, Time: 9:00 AM EPVNEURO, Provider: Dennis Almendarez, Status: Pen, Time: 9:00 AM [id number] Work Phone: Start: 02-20-2021 Influenza vaccination INFLUENZA (#1) [facility] Start: 07-10-2020 Adult depression screening assessment DEPRESSION SCREENING [facility] Start: 02-21-2020 Influenza vaccination Flu vaccine (# 1) [place], [place] Start: 2018 HPV TESTING HPV TESTING [facility] Start: 2018 PAP TESTING PAP TESTING [facility] Start: 2009 HPV Vaccines (1 - 3- dose standard series) HPV Vaccines (1 - 3-dose standard series) [facility] Start: 05-17-2009 MMR Vaccines (1 of 1 - Standard series) MMR Vaccines (1 of 1 - Standard series) [facility] Start: 05-17-2009 Varicella vaccination [facility] Start: 2004 DTaP/Tdap/Td Vaccine s (1 - Tdap) DTaP/Tdap/Td Vaccines (1 - Tdap) [facility] Start: 10-31-2003 Screening for malign ant neoplasm of cervix [facility] Start: 2001 DTaP/Tdap/Td vaccine (1 - Tdap) DTaP/Tdap/Td vaccine (1 - Tdap) [place], [place] Start: 2001 Hepatitis A Vaccines (1 of 2 - Risk 2-dose series) Hepatitis A Vaccines (1 of 2 - Risk 2-dose series) [facility] Start: 2001 Hepatitis B Vaccines (1 of 3 - 19+ 3-dose series) Hepatitis B Vaccines (1 of 3 - 19+ 3-dose series) [facility] Start: 2001 Urine microalbumin profile DTAP,TDAP,TD (1 - Tdap) [facility] Start: 2000 Diabetes mellitus screening Diabetes Screening [facility] Start: 2000 HEPATITIS C SCREENING HEPATITIS C [facility] Start: 2000 Hepatitis C screening Hepatitis C [facility] Start: 2000 HIV SCREENING HIV SCREENING [facility] Start: 1997 [facility] [place] [place] Start: 10-31-1987 COVID-19 VACCINE (1) COVID-19 VACCIN E (1) [facility] Start: 10-31-1983 MMR Vaccines (1 of 1 - Standard series) MMR Vaccines (1 of 1 - Standard series) [facility] Start: 10-31-1983 Varicella vaccine (1 of 2 - 2-dose childhood series) Varicella vaccine (1 of 2 - 2-dose childhood series) [place], [place] Start: 05-02-1983 COVID-19 VACCINE (#1) COVID-19 VACCI NE (#1) [facility] Start: 1982 Hepatitis B Vaccines (1 of 3 - 3-dose series) Hepatitis B Vaccines (1 of 3 - 3-dose series) [facility] Start: 1982 HIV screening HIV Screening [facility] Start: 1982 Lipid panel Lipid Panel [facility] Start: 1982 Medicare Annual Well ness Visit Medicare Annual Wellness Visit (AWV) [facility] End: 07-29-2023 Cardiac Device Check - Remote [facility] Service Area Work Phone: Comment on above: Once for 1 Occurrenc es starting 07/29/2023 until 07/29/2023 End: 11-04-2023 Cardiac Device Check - Remote [facility] Service Area Work Phone: Comment on above: Once for 1 Occurrenc es starting 11/04/2023 until 11/04/2023 End: 05-25-2024 Cardiac Device Check - Remote [facility] Service Area Work Phone: Comment on above: Once for 1 Occurrenc es starting 05/25/2024 until 05/25/2024 End: 02-10-2024 Cardiac Device Check - Remote [facility] Service Area Work Phone: Comment on above: Once for 1 Occurrenc es starting 02/10/2024 until 02/10/2024 End: 08-31-2024 Cardiac Device Check - Remote [facility] Service Area Work Phone: Comment on above: Once for 1 Occurrenc es starting 08/31/2024 until 08/31/2024 End: 12-07-2024 Cardiac Device Check - Remote [facility] Service Area Work Phone: Comment on above: Once for 1 Occurrenc es starting 12/07/2024 until 12/07/2024 End: 03-15-2025 Cardiac Device Check - Remote [facility] Service Area Work Phone: Comment on above: Once for 1 Occurrenc es starting 03/15/2025 until 03/15/2025 End: 01-24-2020 Home Sleep Study Home Sleep Study Sleep Center Routine One Time for 1 Occurrences starting 01/24/2020 until 01/24/2020 [facility], [place] Comment on above: One Time for 1 Occur rences starting 01/24/2020 until 01/24/2020 Patient Education [facility] Work Phone: Patient referral [facility] Work Phone: Reagin Ab [Presence] in Serum by RPR [facility] Streptococcus agalac tiae [Presence] in Unspecified specimen by Organism specific culture [facility] Immunizations Immunization Date Immunization Notes Care Provider Carlita arthur 05-27-2020 influenza virus vaccine, unspecified formulation ESTELA SHELDON [facility] 05-27-2020 influenza, injectabl e, quadrivalent, preservative free Clemente Eng MD Work Phone: [facility] 05-22-2020 influenza virus vaccine, unspecified formulation ESTELA SHELDON [facility] 08-29-2019 influenza virus vaccine, unspecified formulation Viktor E Sotelo Work Phone: [facility] DO Work Phone: 04-10-2019 influenza virus vaccine, unspecified formulation ESTELA CHUNG [facility] 04-10-2019 influenza, injectabl e, quadrivalent, preservative free Clemente Eng MD Work Phone: [facility] 04-19-2009 novel [id number]-[id number], preservative-free, injectable Viktor E Sotelo Work Phone: [facility] DO Work Phone: Payers Date Payer Category Payer Private Health Insurance 2022 Medicaid [id number] 2022 Self-pay [id number] 2021 Medicare [id number] .[id number] 2021 Medicare (Managed Care) REJI MARTEL [id number] [id number] 2021 Private Health Insurance [id number] [address] [facility] MEDICAID [id number] 2020-Present [phone] [address] [place] [address] Medicaid [id number] 2020 Medicare MEDICARE MEDICAR E A AND B [id number] 2020-Present [phone] [place] [address] Medicare [id number] .[id number] 2019 Unknown [id number] 1.2.840.553405.1.13.239.2.7 .3.666757.315 1982 Unknown [id number] 2.16.840.1.118107.3.579.2.1 1982 Unknown [id number] 2.16.840.1.874434.3.579.2.5 1982 Unknown [id number] 2.16.840.1.872736.3.579.2.5 1982 Unknown [id number] 2.16.840.1.303898.3.579.2.1 1982 Unknown [id number] 2.16.840.1.411084.3.579.2.1 1982 Unknown [id number] 2.16.840.1.520137.3.579.2.1 1982 Unknown [id number] 2.16.840.1.743055.3.579.2.1 1982 Unknown [id number] 2.16.840.1.860128.3.579.2.1 1982 Unknown [id number] 2.16.840.1.183088.3.579.2.3 1982 Unknown [id number] 2.16.840.1.270349.3.579.2.3 1982 Unknown [id number] 2.16.840.1.451110.3.579.2.3 1982 Unknown [id number] 2.16840.1.769869.3.579.2.3 1982 Unknown [id number] 2.840.1.479831.3.579.2.1 1982 Unknown [id number] 2.840.1.426915.3.579.2.1 1982 Unknown [id number] 2.840.1.009113.3.579.2.1 1982 Unknown [id number] 2.840.1.417843.3.579.2.1 1982 Unknown [id number] 2.16840.1.157453.3.579.2.1 1982 Unknown [id number] 2.840.1.063705.3.579.2.7 1982 Unknown [id number] 2.16840.1.923349.3.579.2.7 1982 Unknown [id number] 2.16840.1.890519.3.579.2.7 1982 Unknown [id number] 2.16840.1.874038.3.579.2.7 1982 Unknown [id number] 2.16840.1.481052.3.579.2.7 27 1982 Unknown [id number] 2.16.840.1.332587.3.579.2.1 246 1982 Unknown [id number] 2.16.840.1.955565.3.579.2.1 246 1982 Unknown [id number] 2.16.840.1.569072.3.579.2.1 246 1982 Unknown [id number] 2.16.840.1.040373.3.579.2.1 246 1959 Medicaid [id number] 1957 Medicare [id number] Medicare [id number] Unknown Unknown [id number] 2.16.840.1.852018.3.579.2.5 31 Unknown [id number] 2.16.840.1.343761.3.579.2.5 31 Unknown [id number] 2.16.840.1.149355.3.579.2.5 31 Unknown [id number] 2.16.840.1.573622.3.579.2.5 31 Unknown [id number] 2.16.840.1.899904.3.579.2.5 31 Unknown [id number] 2.16.840.1.721233.3.579.2.5 31 Social History Date Type Detail Facility Tobacco smoking stat [facility] [place] Start: 1980 Sex Assigned At Not on file [place], [place] Start: 06-08-2023 Non-smoker Non-smoker [facility] Work Phone: Start: 10-21-2013 End: 06-08-2023 Tobacco smoking status NHIS Never smoked tobacco [facility] Work Phone: Start: 10-21-2013 End: 06-08-2023 Tobacco use and exposure Smokeless tobacco non-user [facility] Work Phone: Start: 11-09-2020 Alcohol intake 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 (finding) [facility] Start: 10-24-2019 History SDOH Financial 5 [facility] Start: 10-24-2019 History SDOH Food Worry 1 [facility] Start: 10-24-2019 History SDOH Transpo rt Med 2 [facility] Start: 1980 Sex Assigned At Female C [facility] Start: 05-16-2022 Tobacco smoking status Never [facility] Start: 06-08-2023 Sex Assigned At Female F [facility] Tobacco smoking stat [facility] Tobacco smoking consumption unknown [facility] Work Phone: Start: 06-08-2023 Alcohol intake Ex-drinker (finding) [facility] Work Phone: Start: 10-03-2009 End: 07-05-2024 Sex Female (finding) [facility] Sexual Orientation [facility] Medical Equipment Procedure Code Equipment Code Equipment Origin al Text Equipment Identifier Dates [facility] [id number]/52 [id number] Start: 04-11-2020 [facility] [id number]/46 [id number] Start: 04-11-2020 [facility] Assurity Mri [id number] Start: 04-11-2020 Tray Port-A-Cath Ii 7.8fr 2.6mm 1.6mm Polysulfone Titanium Polyurethane 76 - [id number] Start: 07-22-2018 Corflo Feeding T ube 10f 60cm [id number] Start: 08-17-2018 Kit Ponsky 20fr Silicone Peg Pull Deluxe Kit Non Safety Sterile - [id number] Start: 01-31-2019 Tube Claudio Secur-L ok 20fr Standard J Silicone Jejunostomy Trimmable Distal - [id number] Start: 04-20-2019 Tube Claudio Sec[employer] ok 18fr Standard Silicone Natural Rubber Jejunostomy - [id number] Start: 07-11-2019 Kit Endovive 20f r Xylocaine Silicone Peg Pull Method Ampule Trocar Cannula - [id number] Start: 10-25-2019 Goals Date Patient Goal Desired Activity /State Functional Status Date Assessment Result Facility 07-05-2024 Functional Status N/A [facility] 04-28-2023 Functional Status N/A [facility] 12-15-2022 Functional status Patient at [facility] Work Phone: 12-09-2022 Functional Status N/A [facility] 11-01-2022 Functional status Patient at [facility] Work Phone: 09-07-2022 Functional status Patient at [facility] Work Phone: 09-03-2022 Functional Status N/A [facility] 08-13-2022 Functional status Patient at [facility] Work Phone: 07-17-2022 Functional status Patient at [facility] Work Phone: 12-11-2021 Functional status Patient at [facility] Work Phone: Mental Status Date Assessment Result Facility 12-15-2022 Cognitive function Cognitive Sta tus Patient at Baseline [facility] Work Phone: 11-01-2022 Cognitive function Cognitive Sta tus Patient at Baseline [facility] Work Phone: 09-07-2022 Cognitive function Cognitive Sta tus Patient at Baseline [facility] Work Phone: 08-13-2022 Cognitive function Cognitive Sta tus Patient at Baseline [facility] Work Phone: 07-17-2022 Cognitive function Cognitive Sta tus Patient at Baseline [facility] Work Phone: 12-11-2021 Cognitive function Cognitive Sta tus Patient at [facility] Work Phone: Clinical Notes 06-07-2019 to [...] including vitamins, herbs, eye drops, creams, and sire-nhe-nqkusuh medicines. Any problems you or family members [...] provider tells you to take them. Taking sqoo-uou-yjvibop medicines, vitamins, herbs, and supplements. Tests You [...] Follow these instructions at home: Medicines Take dhfe-lyn-dbhunem and prescription medicines only as told by [...] provider. Document Revised: 02/19/2022 Document Reviewed: 01/18/2021 [employer] Patient Education 2023 [employer]. Follow Up Care 07/05/2024 14:01:42 With:[facility] Address: When: Unknown Comments:Only if needed/new problems arise. No scheduled appointment indicated at this time. [facility] 01-02-2025 Note Patient Education Urology Cystoscopy [...] including vitamins, herbs, eye drops, creams, and yunw-sxt-imknkoa medicines. ??? Any problems you or family [...] tells you to take them. ??? Taking sjah-sgv-soeoxdx medicines, vitamins, herbs, and supplements. Tests You [...] these instructions at home: Medicines ??? Take qiik-jbo-hmjghwt and prescription medicines only as told by [...] (biopsy) during your (more content not included)... [facility] 11-07-2024 Evaluation note Diagnosis Onset Date Resolution Port-A-Cath in place acute November 07, 2024 2:52pm [facility] Work Phone: 1([phone]) 865-533701-14-2025 Hospital Discharge instructions Patient Education 07/05/2024 13:36:38 [...] Up Care 06/21/2024 10:16:19 With:Michael VIVEROS Address: [address] [place] [address] Business (1) When:01/02/2025 13:36:19 Comments:With Martha Chung [facility] 01-14-2025 Evaluation + Plan noteExtracted from: Title:EU [...] 13:40 EST Urethra was dilated from 22-30 Danish wi th [place] sounds. Future Appointments Appointment Date:01/02/2025 08:20:00 AM Scheduled Provider:ESTELA CHUNG PA-C Location:[facility] Appointment Type:URO Office Visit [facility] 01-14-2025 NotePatient Education Custom Cystoscopy with Urethral [...] if you have a fever over 100 [facility] 07-04-2024 Radiology Diagnostic study [facility] [address] [place] [address] CT Scan Report Signed Patient: Maricarmen Anderson MR#: [id number] : 1980 Acct:[id number] Age/Sex: 43 / F ADM Date: 5 Loc: CT Room: Type: [facility] Attending Dr: Michael Viveros MD Copies to: [...] Oro Jr., D.O.07/04/2024 2:58 PM Dictation Location: [place] [address] Transcribed By: [facility] 07/04/24 1458 Dictated By: Mitchel Oro Jr, DO 07/04/24 1455 Signed By: 07/04/24 1458 [facility]12-20-2024 Evaluation note* Diagnosis Onset Date Resolution Status Admit Date Cervical radicular pain acute D 2023 9:26am Gastroparesis acute June 102023 9:26am [facility] Work Phone: 1(463) 710-480812-12-2024 Hospital Discharge instructions Patient Education 06/02/2024 15:53:20 [...] Follow these instructions at home: Medicines Take nfxy-jjg-xtekpdp and prescription medicines only as told by [...] provider. Document Revised: 02/27/2021 Document Reviewed: 02/27/2021 [employer] Patient Education 2023 [employer]. Follow Up Care 05/27/2024 13:08:43 With:ESTELA CHUNG PA-C, URL Address: [address] [place] [address] When: Unknown [facility] 12-12-2024 NotePatient Education Obstetrics and Gynecology Acute [...] these instructions at home: Medicines ??? Take ztnb-xmf-ruatptr and prescription medicines only as told by [...] Reviewed: 02/27/2021 Elsevier Patient Education ? 2023 [employer].[facility] 05-25-2024 Hospital Discharge instructions Follow Up Care 05/25/2024 15:26:22 With:ESTELA CHUNG PA-C, URL Address: [address] [place] [address] When: Unknown [facility] [place] [id number] Hospital Discharge instructions Patient Education 04/28/2023 10:54:08 Urinary Tract Infection, Adult, Eptc-vv-Ikmm Urinary Tract Infection, Adult A urinary tract [...] Follow these instructions at home: Medicines Take orzh-smi-yplqviy and prescription medicines only as told by [...] provider. Document Revised: 01/18/2021 Document Reviewed: 01/18/2021 [employer]people Patient Education 2022 [employer]. Follow Up Care 01/21/2023 14:42:53 With:SHELDON PA-ESTELA Ledesma, URL Address: [address] [facility] [place] [address] [id number] When: Unknown Comments:3 yr w/ CRESCENCIO [facility] 06-26-2023 Discharge summary Author Nimesh regalado [facility] December 15, 2022 9:25am Note Date/Time December 15, 2022 9:24 am [facility] [address] [place] [address] Discharge Summary Signed Patient: Maricarmen Anderson MR#: [id number] : 1980 Acct:[id number] Age/Sex: 42 / F Adm Date: 3 Loc: Room: [address] [place] [address]: Eduardo Swain MD Copies to: [...] self or stop treatment, but to call [employer], 911 or come to the nearest emergency [...] Q28D promethazine 12.5 mg suppository 12.5 mg WA Q6H PRN (Reason: Nausea And Vomiting) Patient [...] 15 Days Qty: 30 0RF Follow Up: [facility] [Outside] [facility] Viktor Sotelo MD [Primary Care Provider] - (Call your primary provider for any medical needs. ) Documented By: [place] [id number] Signed By: <Electronically signed by Nimesh Cerda MD> 12/15/22924 [facility] Work Phone: 1(614) 505-111406-25-2023 Progress note Author Nimesh regalado [facility] December 14, 2022 7:31am Note Date/Time December 14, 2022 7:29 am [facility] [address] [place] [address] Psychiatry Progress Note Signed Patient: Maricarmen Andersno MR#: [id number] : 1980 Acct:[id number] Age/Sex: 42 / F Adm Date: 3 Loc: Room: [address] [place] [address] Type : ADM IN Attending Dr: Eduardo [...] explained Documented By: Nimesh Cerda MD [id number] Signed By: <Electronically signed by Nimesh Cerda MD> 12/14/22 0731 [facility] Work Phone: 1(774) 711-969806-24-2023 Progress note Author Nimesh regalado [facility] December 13, 2022 8:43am Note Date/Time December 13, 2022 6:53 am [facility] [address] [place] [address] Psychiatry Progress Note Signed Patient: Maricarmen Anderson MR#: [id number] : 1980 Acct:[id number] Age/Sex: 42 / F Adm Date: 3 Loc: Room: [address] [place] [address] Type : ADM IN Attending Dr: Eduardo [...] signed by Nimesh Cerda MD> 12/13/22 0843 [facility] Work Phone: 1(907) 789-859606-23-2023 History and physical note Author Eduardo Swain [facility] December 12, 2022 10:19am Note Date/Time December 12, 2022 10:1 9am [facility] [address] [place] [address] Psychiatry H&P Signed Patient: Maricarmen Anderson MR#: [id number] : 1980 Acct:[id number] Age/Sex: 42 / F Adm Date: 3 Loc: Room: [address] [place] [address] Type: ADM IN Attending Dr: Eduardo Swain [...] promethazine 12.5 mg rectal suppository 12.5 mg WA Q6H PRN Nausea And Vomiting 12/11/22 [History [...] cloudy A Urine pH 6.0 Ur Specific [place] 1.015 Urine Protein Negative Urine Glucose (UA) [...] signed by Eduardo Swain MD> 12/12/22 1019 [facility] Work Phone: 1(132) 112-771806-20-2023 Hospital Discharge instructions Patient Education 12/09/2022 09:42:03 [...] Address: [facility] [address] [place] [address]- Business (1) When:06/10/2023 09:41:40 Comments:Patient is to get scheduled for a CT abdomen and pelvis today [facility]05-13-2023 Discharge summary Author Nimesh regalado [facility] November 01, 2022 9:36am Note Date/Time November 01, 2022 9:34a m [facility] [address] [place] [address] Discharge Summary Signed Patient: Maricarmen Anderson MR#: [id number] : 1980 Acct:[id number] Age/Sex: 42 / F Adm Date: 3 Loc: Room: [address] [place] [address]: Toribio Cerda MD Copies to: [...] Creatinine Clear 114.96, Sodium 140, Potassium 4.0, Fiwnzwsi466, Carbon Dioxide 26.4, Anion Gap 10.6, BUN 14, Creatinine 0.82, Est GFR (CKD-EPI) > 60.0, Glucose 74, Calcium 8.8, Vitamin B12 205 11/01/22 06:20: Corrected WBC 5.1, Uncorrected WBC Count 5.1, RBC 3.89, Hgb 12.5, Hct 37.5, MCV 96.5, MCH 32.2, MCHC 33.4, RDW 12.9, Plt Count 184, MPV 7.8,Neut % (Auto) 54.1, Lymph % (Auto) 34.7, [place] % (Auto) 6.1, Eos % (Auto) 4.2, Baso % (Auto) 0.9, Nucleat RBC Rel Count 0.1, Neut # (Auto) 2.8, Lymph # (Auto) 1.8, [place] # (Auto) 0.3, Eos # (Auto) 0.2, [...] Adult (DC), Gastroparesis (Delayed Gastric Emptying) (DC), [facility] DC Instructions Prescriptions: New promethazine [Promethegan] 12.5 mg Suppository 12.5 mg WA Q6H PRN (Reason: Nausea And Vomiting) 15 [...] 30 Days Qty: 1 0RF Follow Up: [facility] Counseling Hotline [Outside] [facility] [Outside] - 11/11/22 10:00 am (At this appointment you will see the nurse, your counselor, and Dr. Zhang. You will also receive your long acting injection. This appointment will take appoximately 2-1/2 hours. You may bring a snack if you would like. ) [facility] [Outside] (Case Management: You will RECEIVE [...] signed by Nimesh Cerda MD> 11/01/22 0936 [facility] Work Phone: 1(614) 561-337705-12-2023 Progress note Author Afshan Hines [facility] October 31, 2022 2:14pm Note Date/Time October 31, 2022 2:09p m [facility] [address] [place] [address] Hospitalist Progress Note Signed Patient: Maricarmen Anderson MR#: [id number] : 1980 Acct:[id number] Age/Sex: 42 / F Adm Date: 3 Loc: 1S Room: [address] [place] [address] Type: ADM IN Attending Dr: Toribio Cerda [...] 19:16 10/30/22 15:11 Promethazine 12.5 Mg Supp.Rect WA 10/29/23 19:15 12.5 mg Q6H PRN Administration [...] chronic -Patient follows [facility] [place] [facility] [phone] -metoclopramide scheduled, prn ondansetron/ promethazine for symptoms -note patient is 2 months ago Chronic conditions 1. Chronic back pain?tizanidine Schizoaffective disorder -Further plan of care per inpatient psychiatric team for psychoactive medicationmanagement/adjustment in psych with therapy Documented By: LI Coleman 3 [id number] Signed By: <Electronically signed by ANP-RAISA Hines> 10/31/22 1414 [facility] Work Phone: 1(986) 723-793405-12-2023 Progress note Author Nimesh regalado [facility] October 31, 2022 8:45am Note Date/Time October 31, 2022 8:45a m [facility] [address] [place] [address] Psychiatry Progress Note Signed Patient: Maricarmen Anderson MR#: [id number] : 1980 Acct:[id number] Age/Sex: 42 / F Adm Date: 3 Loc: Room: [address] [place] [address] Type : ADM IN Attending Dr: Toribio [...] signed by Nimesh Cerda MD> 10/31/22 0845 [facility] Work Phone: 1(804) 478-361705-11-2023 Consult note Author Rosendo Holland [facility] 2022 1:42pm Note Date/Time October 29, 2022 3:40p m [facility] [address] [place] [address] Hospitalist Consult Note Signed Patient: Maricarmen Anderson MR#: [id number] : 1980 Acct:[id number] Age/Sex: 41 / F Adm Date: 3 Loc: 1S Room: [address] [place] [address] Type: ADM IN Attending Dr: Toribio Cerda [...] added. Patient routinely follows with GIservices at [facility] for this and has upcoming appointment soon [...] negative unless noted below or in HPI [facility] Attestation Statement: The following information was validated [...] Creatinine Clear 136.41, Sodium 141, Potassium 3.8, Stvktrff376 H, Carbon Dioxide 24.6, Anion Gap 11.2, [...] % (Auto) 69.0, Lymph % (Auto) 19.9, [place] % (Auto) 6.5, Eos % (Auto) 3.9, Baso % (Auto) 0.7, Nucleat RBC Rel Count 0.2, Neut # (Auto) 4.2, Lymph # (Auto) 1.2, [place] # (Auto) 0.4, Eos # (Auto) 0.2, Baso # (Auto) 0.0, Monocyte Dist Width17.88 10/28/22 15:13: Urine Color Dark yellow A, Urine Appearance Clear, Urine pH 6.0,Ur Specific [place] 1.024, Urine Protein Negative, Urine Glucose (UA) [...] y for gastroparesis 2019 -Patient follows with [facility] GI services on outpatient basis and has [...] signed by Rosendo Holland DO> 10/30/22 1342 [facility] Work Phone: 1(375) 459-587705-11-2023 Progress note Author Nimesh regalado [facility] 2022 11:53am Note Date/Time 2022 9:52a m [facility] [address] [place] [address] Psychiatry Progress Note Signed Patient: Maricarmen Anderson MR#: [id number] : 1980 Acct:[id number] Age/Sex: 42 / F Adm Date: 3 Loc: 1S Room: [address] [place] [address] Type : ADM IN Attending Dr: Toribio [...] signed by Nimesh Cerda MD> 10/30/22 1153 [facility] Work Phone: 1([phone]) 463-121505-10-2023 History and physical note Author Nimesh regalado [facility] October 29, 2022 11:26am Note Date/Time October 29, 2022 10:39 am [facility] [address] [place] [address] Psychiatry H&P Signed Patient: Maricarmen Anderson MR#: [id number] : 1980 Acct:[id number] Age/Sex: 41 / F Adm Date: 3 Loc: 1S Room: [address] [place] [address] Type: ADM IN Attending Dr: Toribio Cerda [...] Appearance Clear Urine pH 6.0 Ur Specific [place] 1.024 Urine Protein Negative Urine Glucose (UA) [...] signed by Nimesh Cerda MD> 10/29/22 1126 [facility] Work Phone: 1(649) 969-857402-11-2023 Consult note Author William Leyva [facility] August 02, 2022 10:49am Note Date/Time August 02, 2022 10:49am [facility] [address] [place] [address] Neurology Consult Note Signed Patient: Maricarmen Anderson MR#: [id number] : 1980 Acct:[id number] Age/Sex: 41 / F Adm Date: 3 Loc: Room: [address] [place] [address] Type: ADM IN Attending Dr: Dustin Cody MD Copies to: DO Viktor Chambers MD Penola Jones, MD-NOMS~ HPI Consult Date: 08/02/22 Manager Child: William [facility] Vaccinated for [facility]-19?: No Medical History Anemia [...] rapidly alternating movements. No limb dysmetria with qycbnn-oaog-xbkwdm testing. DATA REVIEW: CT head from December 13, 2020 personally reviewed and axially shows a crowded foramen magnum with bilateral cerebellar lingula visible in the foramen magnum. MRI brain February 19, 2020 personally reviewed and shows 6 to 7 mm of bilateral cerebellar tonsillar protrusion through the foramen magnum. MRI cervical spine from November 13, 2020 at [facility] report reviewed and showed 6 to 7 [...] magnet and she gets her imaging at [facility]). I also presume that she is without [...] Nov;230:1-5. doi: 10.1016/j.ejogrb.2018.09.006. Epub 2017Mar 01. PMID: [id number]. Alejandro R, Suzeeshan R, Vahid Y, Young BC, Nura R, Anusha R, Gavin PATINO, González EM. Chiari I malformation and : a comprehensive review of the literature to address common questions and to guide management. Acta Neurochir ([place]). 2019;162(7):8667-9969. doi: 10.1007/y07667-077-04290-4. Epub 2019Oct 07. PMID: [id number]. Code(s): G93.5 - Compression of brain Status: Acute Documented By: William Leyva DO 08/02/22 1032 Signed By: <Electronically signed by William Leyva DO> 08/02/22 1049 [facility] Work Phone: 1(956) 414-185201-26-2023 Discharge summary Author Eduardo Swain [facility] July 17, 2022 12:17pm Note Date/Time July 17, 2022 1 2:16pm [facility] [address] [place] [address] Discharge Summary Signed Patient: Maricarmen Anderson MR#: [id number] : 1980 Acct:[id number] Age/Sex: 41 / F Adm Date: 3 Loc: Room: [address] [place] [address]: Eduardo Swain MD Copies to: [...] lives at home with 14-year-old son Employment: [employer] in [place] Patient was restarted on her home medications. [...] Regular diet No activity restrictions Instructions: Depression, [facility] [place] Instructions Prescriptions: New aripiprazole [...] 30 Days Qty: 30 0RF Follow Up: [facility] Counseling Hotline [Outside] [facility] [Outside] Documented By: Eduardo Swain MD 07/17/221213 Signed By: <Electronically signed by Eduardo Swain MD> 07/17/221216 [facility] Work Phone: 1(118) 617-239201-25-2023 Progress note Author Eduardo Swain [facility] July 16, 2022 12:37pm Note Date/Time July 16, 2022 1 2:37pm [facility] [address] [place], [place] [id number] Psychiatry Progress Note Signed Patient: Maricarmen Anderson MR#: [id number] : 1980 Acct:[id number] Age/Sex: 41 / F Adm Date: 3 Loc: 1S Room: [address] [place] [address] Type : ADM IN Attending Dr: Eduardo [...] <Electronically signed by Eduardo Swain MD> 07/16/22 [facility] Work Phone: 1(549) 834-567001-24-2023 History and physical note Author Eduardo Swain [facility] July 15, 2022 2:28pm Note Date/Time July 15, 2022 2 :28pm [facility] [address] [place] [address] Psychiatry H&P Signed Patient: Maricarmen Anderson MR#: [id number] : 1980 Acct:[id number] Age/Sex: 41 / F Adm Date: 3 Loc: 1S Room: 9Q4251-9 Type: ADM IN Attending Dr: Eduardo Swain MD Copies to: MD Vikotr Duncan MD~ Date of Service: 07/15/2022 HPI [...] lives at home with 14-year-old son Employment: [employer] in [employer] Review of symptoms: Constitutional: Denies chills and [...] Cloudy A Urine pH 5.5 Ur Specific [place] 1.010 Urine Protein Negative Urine Glucose (UA) [...] <Electronically signed by Eduardo Swain MD> 07/15/22 1422 [facility] Work Phone: 1(719) 236-168007-07-2022 Miscellaneous Notes* Telephone Encounter - BYRON Richter [...] the port. BYRON Richter [facility] Miscellaneous Notes* Telephone Encounter - [...] She states she will go to a [facility] ER because local ER doesn't [...] calling: self Call patient at: at home [phone] (home) [phone] (cell) Was an appointment scheduled: No Closing statement: Symptom Call: Thank you for calling [facility], your call is very important. A nurse will call in approximately 2-4 hours during business hours. If this is an emergency, please contact 911. Uyen Dela Cruz documented in [facility] History of Present illness [id number] you F with known Chiari malformation and suspected ideopathic intracranial hypertension presentsfor evaluation of neck pain, arm pain, and balance problems. She has been dealing with this for several years but it has worsening over the past few months. The pain radiated down from her neck to her back and down both arms.[facility]-Agqxvqpgugx[facility] Work Phone: 1(651) 412-445206-08-2021 NoteHNO ID: [id number] Author: Emelia Baldwin MD Service: ? Author [...] discussing the plan of care Emelia Baldwin, [facility]05-25-2021 NoteHNO ID: [id number] Author: RT Argentina(R) Service: Radiology Author Type: Stores Assistant Type: Progress Notes Filed: 11/13/2020 3:15 PM [...] MARTIN/ RT Argentina(R) November 13, 2020 3:13 [facility]05-25-2021 NoteHNO ID: [id number] Author: Yuni Parry RN Service: Nursing Author [...] Anderson DATE: November 13, 2020 TIME: 1:07 [facility]05-25-2021 NoteHNO ID: [id number] Author: Dakota Moreno RN Service: Radiology Author [...] Dakota Moreno RN November 13, 2020 3:18 [facility]05-25-2021 NoteHNO ID: [id number] Author: RT Duarte(R) Service: Radiology Author Type: Stores Assistant Type: Progress Notes Filed: 11/13/2020 10:28 AM Note Text: Radiology Service Progress Note PATIENT NAME: Maricarmen Anedrson DATE OF SERVICE: November 13, 2020 TIME: [...] Khalida Wells, RT(R) November 13, 2020 10:28 [facility]05-23-2021 NoteHNO ID: [id number] Author: Vicente New MD Service: General Surgery [...] LIPASE 21 SIGNATURE: Lucero Wheeler DO Pager: [phone] DATE: 11/11/2020 TIME: 8:28 AM [facility] STAFF PHYSICIAN NOTE OF PERSONAL INVOLVEMENT [...] November 11, 2020 TIME of SERVICE: 6:19 [facility]05-22-2021 NoteHNO ID: [id number] Author: Vicente New MD Service: General Surgery [...] LIPASE 21 SIGNATURE: Lucero Wheeler DO Pager: [phone] DATE: 11/10/2020 TIME: 10:07 AM [facility] STAFF PHYSICIAN NOTE OF PERSONAL INVOLVEMENT [...] November 10, 2020 TIME of SERVICE: 9:27 [facility]05-21-2021 NoteHNO ID: [id number] Author: Mechelle Connolly, KazD Service: Pharmacy Author Type: Pharmacist Type: Plan of Care Filed: 11/09/2020 1:40 PM Note Text: PHARMACY MEDICATION REVIEW Patient Name: Maricarmen Anderson : 1980 The following medications were updated within the [facility] medication list: Medications ADDED to [facility] medication list ? Abjovy 225/1.5 inj monthly Medications CHANGED on [facility] medication list ? Ativan 1mg po at bedtime Medications REMOVED from [facility] medication list ? NS 1000mL infusions ? [...] Unable to assess Preferred outpatient pharmacy: e- [facility]/pharmacy #[id number] [place] [address] [address] [facility] [phone] [place] [address] Allergies: Dilaudid [Hydromorp* Itching Prior to Admission [...] as needed. Yes Mechelle Connolly, PharmD 11/09/2020[facility]05-19-2021 NoteHNO ID: [id number] Author: Clemente Eng MD Service: ? Author Type: Physician Type: Progress Notes Filed: 11/07/2020 4:52 PM Note Text: Established VIRTUAL CONSULT NAME: Maricarmen Jacksonharrisonliz CLINIC NO: [id number] DATE OF SERVICE: November 07, 2020 I [...] further workup at home vs coming to [place] - If get's worse, then she will come back to [place] During this patient visit I have spent approximately 30 minutes eyqz-dn-fivk with the patient and over half the [...] Obesity, Class III, BMI 40-49.9 (morbid obesity) ([facility]) - Port-A-Cath in place patients [...] (0600/1600). - cholecalciferol (VITAM (more content not included)...[facility]04-30-2021 NoteHNO ID: [id number] Author: Clemente Eng MD Service: ? Author Type: Physician Type: Progress Notes Filed: 10/19/2020 9:56 AM Note Text: Established VIRTUAL CONSULT NAME: Maricarmen [place] [facility] NO: [id number] DATE OF SERVICE: October 19, 2020 I [...] with me later this week with either [employer] message or a phone call concerning her J-tube site. -Follow-up visit in the summertime for those gastrectomy labs -I think some of her abdominal pain is related to her recent J-tube dislodgment. If is not improved by late November and then will do further work-up. This point is not debilitating. During this patient visit I have spent approximately 25 minutes kghi-kt-uyox with the patient and over half the [...] Obesity, Class III, BMI 40-49.9 (morbid obesity) ([facility]) - Port-A-Cath in place patients [...] 250 mg by m (more content not included)...[facility]04-28-2021 NoteHNO ID: [id number] Author: Doug Duncan PA-C Service: ? Author Type: Physician Operations Support Representative Type: Progress Notes Filed: 10/22/2020 12:29 PM [...] you. LORENE Levy October 17, 2020 2:20 [facility]04-28-2021 NotePatient Outreach (VTRIAG) MARICARMEN ANDERSON ([id number]) 1980 F T Date Time Provider Department [...] 05/25/2020 Encounter Status:Closed by DOUG DUNCAN on 10/22/20[facility] 09-29-2020 NoteHNO ID: [id number] Author: Elissa Medina MD Service: General Surgery [...] closely. Elissa Medina DO General Surgery, PGY-1[facility]12-[facility]-2020 NoteHNO ID: [id number] Author: Kiara (Rn) BRANDIE Lyon Service: Care [...] Physician Primary Care Physician Name/Phone: Vilma Sotelo [phone] TRANSPORTATION ARRANGEMENTS: Transportation Arrangements: Car ADDITIONAL CONTACT RESOURCES: none Needs Prior to Discharge: Ready for Discharge;Nutrition Enteral Arrangements IMM Follow Up Copy Given: Yes Copy given to:: Patient Method: In Person Pt has been cleared for dc today to home with self care and resumption of TF from I. New RX has been obtained and sent to [facility]. Due to late timing of receiving the RX, [facility] will not be able to order the [...] 29, 2020 TIME: 4:10 PM PAGER/CONTACT #: [phone] Note HNO ID: [id number] Author: Deirdre Dejesus Service: General Surgery Author Type: Resident Type: Progress Notes Filed: 05/29/2020 7:13 AM Note Text: Attestation signed by Clemente Eng at 05/29/2020 4:17 PM Attending Note I evaluated the patient and personally participated in the edward components. I agree with the resident's findings and plan with the following revisions and/or additions: Patient feels better on [employer]. Given letter about incidentals (Renal mass and [...] 9.1 8.8 SIGNATURE: Deirdre Dejesus DO Pager: [phone] DATE: 05/29/2020 TIME: 7:05 [facility]12-07-2020 NoteHNO ID: [id number] Author: Kiara (Rn) BRANDIE Lyon Service: Care [...] 28, 2020 TIME: 10:19 AM PAGER/CONTACT #: [phone] Note HNO ID: [id number] Author: Raleigh Srivastava DO Service: General Surgery [...] further imaging surveillance. Raleigh Srivastava, General Surgery, PGY-3SS[facility]12-06-2020 NoteHNO ID: [id number] Author: Deirdre Dejesus Service: General Surgery Author Type: Resident Type: Progress Notes Filed: 05/27/2020 7:02 AM Note Text: Attestation signed by Clemente Eng at 05/27/2020 4:01 PM Attending Note I evaluated the patient and personally participated in the edward components. 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 No Is Patient Psychosocially Complex?: No ASSESSMENT AND PLAN: Medical Needs: Medical Needs: Two or more chronic diseases;Nutritional Nutrition Needs: Tube Feed Psychosocial Needs: FREEDOM OF CHOICE EXPLAINED: [place]xton of Choice Given: Yes Level of Care Discussed: Other: See Comment(home pharmacy) Provider list within the patient's requested geographic area shared with the patient/family: No Reason: Patient active with [facility] for tubefeeding and planning to continue at discharge POTENTIAL TRANSITION PLANS Home;Home Care Pharmacy SIGNATURE: Idalia Cohen RN PATIENT NAME: Maricarmen Anderson DATE: May 26, 2020 TIME: 2:16 PM PAGER/CONTACT #: [phone] Note HNO ID: [id number] Author: Interface Note Service: ? Author Type: ? Type: Progress Notes Filed: 05/26/2020 3:18 AM Note Text: Epic Scheduled Downtime: 05/26/2020 1:00:00 AM to 05/26/2020 3:06:00 [facility]07-13-2020 NoteHNO ID: [id number] Author: Maynor Manley DO Service: General Surgery [...] home today. SIGNATURE: Maynor Manley DO PAGER: [phone] DATE: January 02, 2020 TIME: 7:22 AM [...] Lubin DO Pager: DATE: 01/02/2020 TIME: 7:10 [facility]07-12-2020 NoteHNO ID: [id number] Author: Glenny Chavarria (Sw) Service: Care Management Author Type: Continuous Loft Operator Type: Care Mgt Progress Note Filed: 01/01/2020 [...] 01, 2020 TIME: 8:30 AM PAGER/CONTACT #: [phone] [facility] NoteHNO ID: [id number] Author: Avtar Randhawa Service: General Surgery Author [...] January 01, 2020 Time: 6:31 AM Pager: [phone] between 6AM-5PM weekday. [phone] for weekend and night call.[facility]07-12-2020 NoteHNO ID: [id number] Author: Interface Note Service: ? Author Type: ? Type: Progress Notes Filed: 01/01/2020 3:09 AM Note Text: Epic Scheduled Downtime: 01/01/2020 1:00:17 AM to 01/01/2020 2:53:17 [facility]07-11-2020 NoteHNO ID: [id number] Author: Glenny Chavarria (Sw) Service: Care Management Author Type: Continuous Loft Operator Type: Care Mgt Initial Assessment Filed: 12/31/2019 5:49 PM Note Text: CARE MANAGEMENT: ASSESSMENT AND DISCHARGE PLAN SERVICE DATE: December 31, 2019 SERVICE TIME: 3:10pm PRIMARY CARE PHYSICIAN: Viktor Sotelo MD ADMISSION STATUS: Observation MEDICAL: BLUE ACCESS PPO Patient/Coach Wirer Stated Goals: To have reduction in symptoms [...] Completely I feel financially burdened by my bxs-mz-nbaeqt expenses for my prescription medication:: 0 - Disagree Completely Risk Score: 0 Patient is categorized as: Low risk < 2 Are you interested in bedside delivery of your medications? No Is Patient Psychosocially Complex?: No ASSESSMENT AND PLAN: Medical Needs: Medical Needs: Two or more chronic diseases Psychosocial Needs: Psychosocial Needs: None FREEDOM OF CHOICE EXPLAINED: [place]xton of Choice Given: No Reason Not Given: No placements necessary POTENTIAL TRANSITION PLANS Patient active with [facility] in the community for tube feeding . [facility] to follow up with patient as to plan . PEJ tube Observation status. EMR reviewed. 5:00pm : [facility] indicates that Osmolite 1.5 , 1200 ml daily , 50ml/hour , free water flush at 100ml 6x a day. EMPERATRIZ Rodriguez SIGNATURE: EMPERATRIZ Hernandez PATIENT NAME: Maricarmen Anderson DATE: December 31, 2019 TIME: 3:09 PM PAGER/CONTACT #: [phone] NoteHNO ID: [id number] Author: Interface Note Service: ? Author Type: ? Type: Progress Notes Filed: 12/31/2019 3:12 AM Note Text: Epic Scheduled Downtime: 12/31/2019 1:00:00 AM to 12/31/2019 2:45:23 [facility]12-17-2019 History of Past illness Narrative* [...] several OS ED and admitted once to [facility] with Negative MRI/EEG work up Continues to [...] UTI. Placed on Cipro and presented to [facility] and had a negative culture, antibiotics were stopped - She had an MRI/EEG workup at [facility] - negative - Continues symptoms- confusion, memory [...] of this encounter (statuses as of 09/18/2021) [facility]12-[facility] History of Past illness Narrative* [...] several OSH ED and admitted once to [facility] with Negative MRI/EEG work up Continues to [...] Placed on Cipro and presented to OSH [facility] and had a negative culture, antibiotics were stopped - She had an MRI/EEG workup at [facility] - negative - Continues symptoms- confusion, memory loss, slow to respond, slowed speech, numbness intermittently in upper extremities. New frontal headache over past 2-3 days, no visual changes. PLAN: - EEG - MRI kem [facility] - Thiamine, B6, B12, Ammonia, Lead, niacin, [...] of this encounter (statuses as of 12/26/2021) [facility] complaint Narrative - Reported* Patient is being seen for an initial Neurosurgical evaluation. * History of Chiari malformation. Having neck pain and numbness and tingling in her face and arms. Had seen [facility] doctor, told her not warranted at this time. LC-Qutcwnojztjc-QCOEG Work Phone: Evaluation + Plan note No data available for this section [facility] evaluation + Plan note Future Appointments Appointment Date:05/03/2024 09:00:00 AM Scheduled Provider:ESTELA CHUNG PA-C Location:[facility] Appointment Type:URO Office Visit [facility] evaluation + Plan note Future Appointments Appointment Date:06/02/2024 02:20:00 PM Scheduled Provider:ESTELA CHUNG PA-C Location:[facility] Appointment Type:URO Office Visit [facility] Evaluation note* Diagnosis Onset Date Resolution Status Advanced maternal age affecting , antepartum acute Anemia acute BMI 35.0-35.9,adult acute Depression acute First trimester ac marc History of induced hypertension acute Major depression 2021 acute Major depression with psychotic features acute acute PTSD (post-traumatic stress disorder) acute UTI (urinary tract infection) acute [facility] Work Phone: Evaluation noteNo assessment information available [facility] Work Phone: Evalupilbq note* Diagnosis Onset Date Resolution Status Hallucinations acute History of induced hypertension acute Major depression with psychotic features acute acute Schizoaffective disorder acu te [facility] Work Phone: Evaluation note* Diagnosis Onset Date Resolution Status Hallucinations acute History of induced hypertension acute Major depression with psychotic features acute acute Schizoaffective disorder acu te Chiari malformation type I a cute History of induced hypertension acute [facility] Work Phone: Evaluation note* Diagnosis Onset Date Resolution Status Hallucinations acute History of induced hypertension acute Major depression with psychotic features acute acute Schizoaffective disorder acu te Chiari malformation type I a cute History of induced hypertension acute Schizoaffective disorder acu te Auditory hallucination acute Depression with suicidal ideation acute Schizoaffective disorder acu te Suicide ideation acute [facility] Work Phone: Evaluation note* Diagnosis Onset Date Resolution Status Chiari malformation type I a cute History of induced hypertension acute Schizoaffective disorder acu te Auditory hallucination acute Depression with suicidal ideation acute Schizoaffective disorder acu te Suicide ideation acute Auditory hallucinations acut e [facility] Work Phone: Evaluation note* Diagnosis Onset Date Resolution Status Schizoaffective disorder acu te Auditory hallucination acute Depression with suicidal ideation acute Schizoaffective disorder acu te Suicide ideation acute Auditory hallucinations acut e Gastroparesis acute Nausea & vomiting acute Schizoaffective disorder acu te [facility] Work Phone: Evaluation note* Diagnosis Onset Date Resolution Status Auditory hallucinations acut e Gastroparesis acute Nausea & vomiting acute Schizoaffective disorder acu te [facility] Work Phone: Evaluation note* Diagnosis Onset Date Resolution Status Auditory hallucinations acut e Gastroparesis acute Nausea & vomiting acute Schizoaffective disorder acu te Schizoaffective disorder acu te Suicide ideation acute [facility] Work Phone: Evaluation note* Diagnosis Pacemaker Cardiac pacemaker in situ Sick sinus syndrome (CMS/HCC) Sinoatrial node dysfunction documented in this encounter [facility] Work Phone: Evaluation note* Diagnosis Pacemaker Cardiac pacemaker in situ Sick sinus syndrome (CMS/HCC) Sinoatrial node dysfunction documented in this encounter [facility] Work Phone: Evaluation note* Diagnosis Pacemaker Cardiac pacemaker in situ Sick sinus syndrome (Multi) Sinoatrial node dysfunction documented in this encounter [facility] Work Phone: Evaluation note* Diagnosis Pacemaker Cardiac pacemaker in situ Sick sinus syndrome (Multi) Sinoatrial node dysfunction documented in this encounter [facility] Work Phone: Evaluation note* Diagnosis Pacemaker Cardiac pacemaker in situ Sick sinus syndrome (Multi) Sinoatrial node dysfunction documented in this encounter [facility] Work Phone: History and physical note Author Eduardo Swain [facility] December 12, 2022 10:19am Note Date/Time December 12, 2022 10:1 9am [facility] [address] [place] [address] Psychiatry H&P Signed Patient: Maricarmen Anderson MR#: [id number] : 1980 Acct:[id number] Age/Sex: 42 / F Adm Date: 3 Loc: Room: [address] [place] [address] Type: ADM IN Attending Dr: Eduardo Swain [...] promethazine 12.5 mg rectal suppository 12.5 mg WA Q6H PRN Nausea And Vomiting 12/11/22 [History [...] cloudy A Urine pH 6.0 Ur Specific [place] 1.015 Urine Protein Negative Urine Glucose (UA) [...] signed by Eduardo Swain MD> 12/12/22 1019 [facility] Work Phone: History of Present illness [...] 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 * Personal review of ECG and cardiac [...] needed, treatment options, risks, benefits, and imponderables. [facility] [facility] [employer] lifestyle changes and behavioral modification discussed. All questions answered in detail. Counseling over 50% visit regarding above. Patient appreciative of care. 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 * Personal review of ECG and cardiac [...] needed, treatment options, risks, benefits, and imponderables. [employer] lifestyle changes and behavioral modification discussed. All questions answered in detail. Counseling over 50% visit regarding above. Patient appreciative of care. 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 * Personal review of ECG and cardiac data reviewed . * Outside records: * OV with me December 2020 * Device check December 2020 * Office visit June 2020 * Device check November 2020 * Device check October 2020 * Office note October 2020 * Device Check: Today. [employer] 5194 pacemaker. Estimate longevity device over 9 years. [...] needed, treatment options, risks, benefits, and imponderables. [employer] [facility] [employer] lifestyle changes and behavioral modification discussed. All questions answered in detail. Counseling over 50% visit regarding above. Patient appreciative of care. 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 * Personal review of ECG and cardiac [...] treatment options, risks, benefits, and i mponderables. [employer] lifestyle changes and behavioral modification discussed. All questions answered in detail. Counseling over 50% visit regarding above. Patient appreciative of care. 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 * Personal review of ECG and cardiac [...] treatment options, risks, benefits, and i mponderables. [employer] lifestyle changes and behavioral modification discussed. All questions answered in detail. Counseling over 50% visit regarding above. Patient appreciative of care. [facility] [employer] 320 DO Work Phone: History of Present [...] needed, treatment options, risks, benefits, and imponderables. [employer] lifestyle changes and behavioral modification discussed. All questions answered in detail. Counseling over 50% visit regarding above. Patient appreciative of care. [facility] [facility] DO Work Phone: [facility] Work Phone: Hospital Discharge instructions Additional Instructions Regular Diet No Activity [facility]ions[facility] Work Phone: Hospital Discharge instructions Additional Instructions Obtain BP cuff at pharmacy and obtain BP at home twice daily after resting for ten minutes prior to performing. Call Labor and Delivery for BP elevated 150/100 x 2 readings. Return Thursday08/05/2022 at 0900 for NST and BP check.[facility] Work Phone: Hospital Discharge instructions No data available for this section [facility] Hospital Discharge instructions Additional Instructions No Activity Restrictions Regular Diet continue your vitamin therapy after gastric surgery as prescribed. Your vitamin D and B12 were found low while you were i the hospital.[facility] Work Phone: Progress note No data available for this section [facility] reason for visit Narrative* Imaging (Routine) - Pending Review Specialty Diagnoses / Procedures Referred By Laura t Referred To Contact Cardiology Diagnoses Pacemaker Sick sinus syndrome (Multi) Procedures Cardiac Device Check - Remote Rita Olivia MD [address] [place] [address] Phone: tel: fax: Referral ID Status Reason Start Date Expiration Date Visits Requested Visits Authorized [id number] Pending Review Perform Procedure 05/25/2024 05/25/2025 1 1 [facility] Work Phone: Summary Purpose Family History [...] FoundDocuments on File Type Date Recorded Patient Coach Wirer Expl anation Advance Directives and Living Will Power of Power Line Installer Documents on File Type Date Recorded Patient Coach Wirer Expl anation Advance Directive(s) Advance Directive(s) 11/09/2020 [...] here for 6 month follow-up with [facility]. She is 16 weeks Patient here for 6 month follow-up with [facility]. 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 Schizoaffective disorder Auditory hallucination Depression with suicidal ideation Schizoaffective disorder Suicide ideation Auditory hallucinations Chief Complaint iup 37 weeks IUP (Intrauterine ) P dizzy headache abd pain n/v [facility] Reason for Visit Schizoaffective diso rder Auditory hallucination Depression with suicidal ideation Schizoaffective disorder Suicide ideation Auditory hallucinations Gastroparesis Nausea & vomiting Schizoaffective disorder Chief Complaint dizzy headache abd pain n/v [facility] Reason for Visit Auditory hallucinati ons Gastroparesis Nausea & vomiting Schizoaffective disorder Chief Complaint dizzy headache abd pain n/v [facility] Reason for Visit Auditory hallucinati ons Gastroparesis Nausea & vomiting Schizoaffective disorder Schizoaffective disorder Suicide ideation Chief Complaint dizzy headache abd pain n/v [facility] mri clearance Reason for Visit Auditory hallucinati ons Gastroparesis Nausea & vomiting Schizoaffective disorder Schizoaffective disorder Suicide ideation Chief Complaint [facility] mri clearance N28.89 Reason for Visit [...] - Remote Rita Olivia MD [address] [place] [address] Referral ID Status Reason Start Date Expiration Date Visits Requested Visits Authorized [id number] Pending Review Perform Procedure 04/24/2023 04/23/2024 1 1 Additional Source Comments INFORMATION SOURCE (unrecogn ized section and content) DATE CREATED AUTHOR 05/13/2019 [facility] DATE CREATED AUTHOR AUTHOR'S ORGANIZ ATION 09/27/2019 [facility] DATE CREATED AUTHOR AUTHOR'S ORGANIZ ATION 02/11/2020 [facility] DATE CREATED AUTHOR AUTHOR'S ORGANIZ ATION 11/18/2020 [facility] DATE CREATED AUTHOR AUTHOR'S ORGANIZ ATION 09/20/2021 [facility] DATE CREATED AUTHOR AUTHOR'S ORGANIZ ATION 10/31/2022 [facility] DATE CREATED AUTHOR AUTHOR'S ORGANIZ ATION 01/21/2023 [facility] DATE CREATED AUTHOR AUTHOR'S ORGANIZ ATION 01/22/2023 [facility] DATE CREATED AUTHOR AUTHOR'S ORGANIZ ATION 03/05/2023 [facility] DATE CREATED AUTHOR AUTHOR'S ORGANIZ ATION 11/06/2023 [facility] DATE CREATED AUTHOR AUTHOR'S ORGANIZ ATION 10/02/2024 [facility] DATE CREATED AUTHOR AUTHOR'S ORGANIZ ATION 01/04/2025 [facility] DATE CREATED AUTHOR AUTHOR'S ORGANIZ ATION 03/24/2025 [facility] DATE CREATED AUTHOR AUTHOR'S ORGANIZ ATION 04/08/2025 [facility] Source Comments (unrecognize d section and content) In the event this informatio n is protected by the Federal Confidentiality of Alcohol and Drug Abuse Patient Records regulations: The Federal rules restrict any use of the information to criminally investigate or prosecute any alcohol or drug abuse patient.[facility] Hospital[facility] the event this information is protected by the Federal Confidentiality of Alcohol and Drug Abuse Patient Records regulations: The Federal rules restrict any use of the information to criminally investigate or prosecute any alcohol or drug abuse patient.[facility] Reason for Visit (unrecogniz ed section and content) Reason Comments Patient Update Specialty Diagnoses / Procedures Referred By Contac t Referred To Contact Cardiology Diagnoses Pacemaker Sick sinus syndrome (CMS/HCC) Procedures Cardiac Device Check - Remote Rita Olivia MD [address] [place] [address], [address] [address] Referral ID Status Reason Start Date Expiration Date Visits Requested Visits Authorized [id number] Pending Review Perform Procedure 04/24/2023 04/23/2024 1 1 Specialty Diagnoses / Procedures Referred By Contac t Referred To Contact Cardiology Diagnoses Pacemaker Sick sinus syndrome (CMS/HCC) Procedures [place] [address] [address] Specialty Diagnoses / Procedures Referred By Contac t Referred To Contact Cardiology Diagnoses Pacemaker Sick sinus syndrome (Multi) Procedures Cardiac Device Check - Remote Rita Olivia MD [facility], [address] [address] Care Teams (unrecognized sec tion and content) [...] November 12, 2023 End: November 12, 2023 Sales Representative Adding Machines Relationship Specialty Start Date End Date Viktor Sotelo MD [address] [place] [phone] PCP - General 10/18/13 Sales Representative Adding Machines Relationship Specialty Start Date End Date Viktor Sotelo MD [address] [place] [phone] PCP - General 10/18/13 Team Status: Inactive [...] Sotelo MD Primary Care Provider Active Urbano Palam DO Admit Provider, Attending Provider Active Team [...] MD Other Provider Active Urmila Paiz , TAX FORM PREPARER Other Provider Active Mahad Mandel , DO [...] Peterson MD Other Provider Active Gretta Maki MEDICAL ASSISTANT-C Other Provider Active Yonny Bazan MD Other Provider Active Trace Morataya MD Other Provider Active Dimitris Joe MD Other Provider Active Verona Waterman , DO Other Provider Active All Bloom , DO Other Provider Active Joe Holland , DO Other Provider Active Candice Roman TAX FORM PREPARER Other Provider Active Rosendo Holland , DO Other Provider Active Harriet Andrade MD Other Provider Active Chaparrita Mcnari TAX FORM PREPARER Other Provider Active Sheri Montana TAX FORM PREPARER Other Provider Active Genesis Pinedo , BRANDIE [...] Active Eduardo Swain MD Admit Provider Active Sales Representative Adding Machines Relationship Specialty Start Date End Date Viktor Sotelo MD PCP - General 03/02/20 Sales Representative Adding Machines Relationship Specialty Start Date End Date Viktor Sotelo MD PCP - General 03/02/20 Sales Representative Adding Machines Relationship Specialty Start Date End Date Viktor Sotelo MD [address] [place] [phone] PCP - General 03/02/20 Sales Representative Adding Machines Relationship Specialty Start Date End Date Viktor Sotelo MD [address] [place] [phone] PCP - General 03/02/20 Sales Representative Adding Machines Relationship Specialty Start Date End Date Viktor Sotelo MD [address] [place] [address] PCP - General 03/02/20 Sales Representative Adding Machines Relationship Specialty Start Date End Date Viktor Sotelo MD [address] [place] [phone] PCP - General 03/02/20 Goals (unrecognized section [...] BE BASED ON THE PRIMARY CLINICAL RECORDS. [facility]. provides no warranty or guarantee of the accuracy or completeness of information in this document.
[2025-04-10 10:45] LABS: Hematocrit 41.0 % (36.0-48.0); Hemoglobin 14.1 g/dL (12.0-16.0); Immature Granulocytes Abs Auto 0.01 10^3/uL (0.00-0.03); Immature Granulocytes Pct Auto 0.2 % (0.0-0.5); Lymphocytes Absolute Auto 1.4 10^3/uL (1.2-3.8); Mean Corpuscular HGB Conc 34.4 g/dL (29.9-35.2); Mean Corpuscular Hemoglobin 33.3 pg (26.7-34.0); Mean Corpuscular Volume 96.7 fL (81.0-99.0); Platelet Count 175 10^3/uL (150-450); Red Blood Count 4.24 10^6/uL (4.20-5.40); White Blood Count 4.6 10^3/uL (4.0-11.0)
[2025-04-10 11:08] LABS: Alanine Aminotransferase 26 U/L (14-59); Albumin Globulin Ratio 0.9; Albumin Level 3.5 g/dL (3.4-5.0); Alkaline Phosphatase 72 U/L (46-116); Anion Gap 13.9; Aspartate Amino Transferase 29 U/L (15-37); Blood Urea Nitrogen 8.0 mg/dL (7.0-18.0); Calcium 9.1 mg/dL (8.5-10.1); Carbon Dioxide 23.0 mmol/L (21.0-32.0); Chloride 106 mmol/L (98-107); Estimated GFR (African America >60 (>=60 mL/min/1.73m^2); Estimated GFR (Non-African Ame >60 (>=60 mL/min/1.73m^2); Globulin 3.8 g/dL; Glucose 122 mg/dL (74-106); Potassium 3.9 mmol/L (3.5-5.1); Sodium 139 mmol/L (136-145); Total Protein 7.3 g/dL (6.4-8.2)
[2025-04-10 11:25] LABS: Iron 122.0 ug/dL (50.0-170.0); Percent Iron Saturation 36.4 %; Total Iron Binding Capacity 335.0 ug/dL (250.0-450.0)
[2025-04-10 11:49] LABS: Ferritin 47.0 ng/mL (8.0-252.0)
[2025-04-11 04:37] LABS: Vitamin B12 363 pg/mL (232-1245)
== END 2025-04-10 10:08 | disposition home or self-care (01) ==
LOC: LAB 10:10
PROVIDERS: PCP Family Medicine; Visit Provider Internal Medicine Hematology & Oncology
DX: I26.99 Other pulmonary embolism without acute cor pulmonale (principal); D68.69 Other thrombophilia; D64.9 Anemia, unspecified; K90.9 Intestinal malabsorption, unspecified; I82.402 Acute embolism and thrombosis of unspecified deep veins of left lower extremity; D50.9 Iron deficiency anemia, unspecified; D51.9 Vitamin B12 deficiency anemia, unspecified
CPT/HCPCS: 36415; 80053; 82306; 82607; 82728; 83540; 83550; 85025

== ENCOUNTER 2025-04-11 11:12 | Outpatient (RCR) | payer MEDICARE, MEDICAID, SELFPAY ==
[2025-04-11] MEDS: HEPARIN SODIUM (PORCINE) PF LOCK FLUSH 500 UNIT/5 ML SYRINGE IV (13:00)
--- NOTE | 2025-04-11 13:46 | PC.NURSE ---
Here for appt with Dr. Lemus, left chest port accessed using sterile technique. able to obtain brisk blood return after laying patient supine, flushed with ns followed by heparin lock flush, port deaccessed, cotton ball and bandaid applied. patient tolerated well. released ambulatory
== END 2025-04-21 23:59 | disposition home or self-care (01) ==
LOC: HEMC 11:12
PROVIDERS: PCP Family Medicine; Visit Provider Internal Medicine Hematology & Oncology
DX: I26.99 Other pulmonary embolism without acute cor pulmonale (principal); D68.69 Other thrombophilia; D64.9 Anemia, unspecified; K90.9 Intestinal malabsorption, unspecified; I82.402 Acute embolism and thrombosis of unspecified deep veins of left lower extremity; D50.9 Iron deficiency anemia, unspecified; D51.9 Vitamin B12 deficiency anemia, unspecified; Z95.0 Presence of cardiac pacemaker; Z79.01 Long term (current) use of anticoagulants; Z98.84 Bariatric surgery status
CPT/HCPCS: 36591; G0463; J1642

== ENCOUNTER 2025-04-19 11:07 | Outpatient (OUT) | payer MEDICARE, MEDICAID, SELFPAY ==
--- OUTSIDE RECORDS SUMMARY | 2024-07-05 05:00 | XMS_ITS ---
Author Organization [facility] [place] Address [address] [place] [address] Care Team Providers Care Medical Office Technician Name Role Phone EMY LEMUS Primary Care Provider Unavailabl Emy Chu Unavailable [phone] REASON FOR VISIT MD Encounters Encounter Location Date Provider Diagnosis [facility] Oncology [address] [place] [id number] 07/05/2024 Emy Lemus Plan Of Treatment Next Appt Details Provider Name:EMY LEMUS , 05/11/2025 09:00:00 AM, [address] [place] [address], [id number], Provider Name:Emy Lemus , 06/06/2025 09:30:00 AM, [address] [place] [address], [phone], Provider Name:Emy Lemus , 06/06/2025 09:45:00 AM, [address] [place] [address], [phone], Progress Notes * Maricarmen ANDERSONDOB: 3 (44 yo F)Acc No.[id number]:07/05/2024 UNLOCKED PROGRESS NOTE Progress Notes Patient: Deja MUÑOZMaricarmen GRECO :Amadeo Lemus M.D.:1980???Age:43 Y ???Sex:FemaleDate:07/05/2024Phone:[phone]:[address] [place] [address], [place], [id number]:EMY LEMUS Subjective: * Chief Complaints: * 1 . MD. * Medical History: Objective: * Vitals: Assessment: Plan: * Treatment: * * Electronic signature of Emy Lemus MD, [id number] on 04/19/2025 at 11:15 AM EDTSign off status: PendingVisit Status:?VOICEMSG (Voice) * Provider: Harpreet Lemus M.D. Date: 0 07/05/2024 Generated for Printing/Faxing/eTransmitting on:?04/19/2025 11:15 AM EDT
--- OUTSIDE RECORDS SUMMARY | 2024-08-30 06:30 | XMS_ITS ---
Author Organization [facility] [place] Address [address] [place] [address] Care Team Providers Care Manager Sales And Marketing Name Role Phone EMY LEMUS Primary Care Provider Unavailabl Emy Chu Unavailable [phone] REASON FOR VISIT MD Encounters Encounter Location Date Provider Diagnosis [facility] [address] [place] [phone] 08/30/2024 Emy Lemus Plan Of Treatment Next Appt Details Provider Name:EMY LEMUS , 05/11/2025 09:00:00 AM, [address] [place] [address], [phone], Provider Name:Emy Lemus , 06/06/2025 09:30:00 AM, [address] [place] [address], [phone], Provider Name:Emy Lemus , 06/06/2025 09:45:00 AM, [address] [place] [address], [phone], Progress Notes * Maricarmen ANDERSONDOB: 3 (44 yo F)Acc No.[id number]:08/30/2024 UNLOCKED PROGRESS NOTE Progress Notes Patient: Deja MUÑOZMaricarmen GRECO :Amadeo Lemus M.D.:1980???Age:43 Y ???Sex:FemaleDate:08/30/2024Phone:[phone]:[address] [place] [address], [place], [id number]:EMY LEMUS Subjective: * Chief Complaints: * 1 . MD. * Medical History: Objective: * Vitals: Assessment: Plan: * Treatment: * * Electronic signature of Emy Lemus MD, [id number] on 04/19/2025 at 11:12 AM EDTSign off status: PendingVisit Status:?[facility] (Voice) * Provider: Harpreet Lemus M.D. Date: 0 08/30/2024 Generated for Printing/Faxing/eTransmitting on:?04/19/2025 11:12 AM EDT
--- OUTSIDE RECORDS SUMMARY | 2024-11-01 06:15 | XMS_ITS ---
Author Organization The [facility] in [place] Address [address] [place] [address] Care Team Providers Care Warper Tender Name Role Phone EMY LEMUS Primary Care Provider Unavailabl Emy Chu Unavailable [phone] REASON FOR VISIT MD Encounters Encounter Location Date Provider Diagnosis The [facility] On[facility] [address] [place] [phone] 11/01/2024 Emy Lemus Plan Of Treatment Next Appt Details Provider Name:EMY LEMUS , 05/11/2025 09:00:00 AM, [address] [place] [address], [phone], Provider Name:Emy Leums , 06/06/2025 09:30:00 AM, [address] [place] [address], [phone], Provider Name:Emy Lemus , 06/06/2025 09:45:00 AM, [address] [place] [address], [phone], Progress Notes * Maricarmen ANDERSONDOB: 3 (44 yo F)Acc No.[id number]:11/01/2024 UNLOCKED PROGRESS NOTE Progress Notes Patient: Deja MUÑOZMaricarmen GRECO :Amadeo Lemus M.D.:1980???Age:44 Y ???Sex:FemaleDate:11/01/2024Phone:[phone]:[address] [place] [address], [place], [phone]:EMY LEMUS Subjective: * Chief Complaints: * 1 . MD. * Medical History: Objective: * Vitals: Assessment: Plan: * Treatment: * * Electronic signature of Emy Lemus MD, [id number] on 04/19/2025 at 11:12 AM EDTSign off status: PendingVisit Status:?PEN (Pending) * Provider: Harpreet Lemus M.D. Date: 0 11/01/2024 Generated for Printing/Faxing/eTransmitting on:?04/19/2025 11:12 AM EDT
--- OUTSIDE RECORDS SUMMARY | 2025-01-10 06:30 | XMS_ITS ---
Author Organization The [facility] in [place] Address [address] [place] [address] Care Team Providers Care General Machinist Name Role Phone EMY LEMUS Primary Care Provider Unavailabl Emy Chu Unavailable [phone] REASON FOR VISIT MD Encounters Encounter Location Date Provider Diagnosis [facility] [address] [place] [phone] 01/10/2025 Emy Lemus Plan Of Treatment Next Appt Details Provider Name:EMY LEMUS , 05/11/2025 09:00:00 AM, [address] [place] [address], [phone], Provider Name:Emy Lemus , 06/06/2025 09:30:00 AM, [address] [place] [address], [phone], Provider Name:Emy Lemus , 06/06/2025 09:45:00 AM, [address] [place] [address], [phone], Progress Notes * Maricarmen ANDERSONDOB: 3 (44 yo F)Acc No.[id number]:01/10/2025 UNLOCKED PROGRESS NOTE Progress Notes Patient: Deja MUÑOZMaricarmen GRECO :Amadeo Lemus M.D.:1980???Age:44 Y ???Sex:FemaleDate:01/10/2025Phone:[phone]:[address] [place] [address], [place], [phone]:EMY LEMUS Subjective: * Chief Complaints: * 1 . MD. * Medical History: Objective: * Vitals: Assessment: Plan: * Treatment: * * Electronic signature of Emy Lemus MD, [id number] on 04/19/2025 at 11:14 AM EDTSign off status: PendingVisit Status:?PEN (Pending) * Provider: Harpreet Lemus M.D. Date: 0 01/10/2025 Generated for Printing/Faxing/eTransmitting on:?04/19/2025 11:14 AM EDT
--- OUTSIDE RECORDS SUMMARY | 2025-01-17 05:00 | XMS_ITS ---
Author Organization The [facility] in [place] Address [address] [place] [address] Care Team Providers Care Rotary Shear Cutter Name Role Phone EMY LEMUS Primary Care Provider Unavailabl Emy Chu Unavailable [phone] REASON FOR VISIT CL.5 Encounters Encounter Location Date Provider Diagnosis The [facility] Oncology [address] [place] [address] 01/17/2025 Emy Lemus Plan Of Treatment Next Appt Details Provider Name:EMY LEMUS , 05/11/2025 09:00:00 AM, [address] [place] [address], [phone], Provider Name:Emy Lemus , 06/06/2025 09:30:00 AM, [address] [place] [address], [phone], Provider Name:Emy Lemus , 06/06/2025 09:45:00 AM, [address] [place] [address], [phone], Progress Notes * Maricarmen ANDERSONDOB: 3 (44 yo F)Acc No.[id number]:01/17/2025 UNLOCKED PROGRESS NOTE Progress Note Patient: Deja MUÑOZMaricarmen GRECO :Amadeo Lemus M.D.:1980???Age:44 Y ???Sex:FemaleDate:01/17/2025Phone:[phone]:[address] [place] [phone]:EMY LEMUS Subjective: * Chief Complaints: * 1 . CL.5. * Medical History: Objective: * Vitals: Assessment: Plan: * Treatment: * * Electronic signature of Emy Lemus MD, [id number] on 04/19/2025 at 11:16 AM EDTSign off status: PendingVisit Status:?PEN (Pending) * Provider: Harpreet Lemus M.D. Date: 0 01/17/2025 Generated for Printing/Faxing/eTransmitting on:?04/19/2025 11:16 AM EDT
--- OUTSIDE RECORDS SUMMARY | 2025-02-16 05:00 | XMS_ITS ---
Author Organization The [facility] in [place] Address [address] [place] [address] Care Team Providers Care User Support Analyst Name Role Phone EMY LEMUS Primary Care Provider Unavailabl Emy Chu Unavailable [phone] REASON FOR VISIT CL.5 Encounters Encounter Location Date Provider Diagnosis The [facility] Oncology [address] [place] [address] 02/16/2025 Emy Lemus Plan Of Treatment Next Appt Details Provider Name:EMY LEMUS , 05/11/2025 09:00:00 AM, [address] [place] [address], [phone], Provider Name:Emy Lemus , 06/06/2025 09:30:00 AM, [address] [place] [address], [phone], Provider Name:Emy Lemus , 06/06/2025 09:45:00 AM, [address] [place] [address], [phone], Progress Notes * Maricarmen ANDERSONDOB: 3 (44 yo F)Acc No.[id number]:02/16/2025 UNLOCKED PROGRESS NOTE Progress Note Patient: Deja MUÑOZMaricarmen GRECO :Amadeo Lemus M.D.:1980???Age:44 Y ???Sex:FemaleDate:02/16/2025Phone:[phone]:[address] [place] [address]Pcp:EMY LEMUS Subjective: * Chief Complaints: * 1 . CL.5. * Medical History: Objective: * Vitals: Assessment: Plan: * Treatment: * * Electronic signature of Emy Lemus MD, [id number] on 04/19/2025 at 11:13 AM EDTSign off status: PendingVisit Status:?PEN (Pending) * Provider: Harpreet Lemus M.D. Date: 0 02/16/2025 Generated for Printing/Faxing/eTransmitting on:?04/19/2025 11:13 AM EDT
--- OUTSIDE RECORDS SUMMARY | 2025-03-16 05:00 | XMS_ITS ---
Author Organization The [facility] in [place] Address [address] [place] [address] Care Team Providers Care Dental Practitioner Name Role Phone EMY LEMUS Primary Care Provider Unavailabl Emy Chu Unavailable [phone] REASON FOR VISIT CL.5 Encounters Encounter Location Date Provider Diagnosis The [facility] Oncology [address] [place] [address] 03/16/2025 Emy Lemus Plan Of Treatment Next Appt Details Provider Name:EMY LEMUS , 05/11/2025 09:00:00 AM, [address] [place] [address], [address], Provider Name:Emy Lemus , 06/06/2025 09:30:00 AM, [address] [place] [address], [phone], Provider Name:Emy Lemus , 06/06/2025 09:45:00 AM, [address] [place] [address], [phone], Progress Notes * Maricarmen ANDERSONDOB: 3 (44 yo F)Acc No.[id number]:03/16/2025 UNLOCKED PROGRESS NOTE Progress Note Patient: Deja MUÑOZMaricarmen GRECO :Amadeo Lemus M.D.:1980???Age:44 Y ???Sex:FemaleDate:03/16/2025Phone:[phone]:[address] [place] [phone]:EMY LEMUS Subjective: * Chief Complaints: * 1 . CL.5. * Medical History: Objective: * Vitals: Assessment: Plan: * Treatment: * * Electronic signature of Emy Lemus MD, [id number] on 04/19/2025 at 11:11 AM EDTSign off status: PendingVisit Status:?PEN (Pending) * Provider: Harpreet Lemus M.D. Date: 0 03/16/2025 Generated for Printing/Faxing/eTransmitting on:?04/19/2025 11:11 AM EDT
--- OUTSIDE RECORDS SUMMARY | 2025-04-11 07:15 | XMS_ITS ---
Author Organization The [facility] in [place] Address [address] [place] [address] Care Team Providers Care Recreation Leader Name Role Phone EMY LEMUS Primary Care Provider Unavailabl Emy Chu Unavailable [phone] REASON FOR VISIT MD Encounters Encounter Location Date Provider Diagnosis [facility] [address] [place] [phone] 04/11/2025 Emy Lemus Plan Of Treatment Next Appt Details Provider Name:EMY LEMUS , 05/11/2025 09:00:00 AM, [address] [place] [address], [phone], Provider Name:Emy Lemus , 06/06/2025 09:30:00 AM, [address] [place] [address], [phone], Provider Name:Emy Lemus , 06/06/2025 09:45:00 AM, [address] [place] [address], [phone], Progress Notes * Maricarmen ANDERSONDOB: 3 (44 yo F)Acc No.[id number]:04/11/2025 UNLOCKED PROGRESS NOTE Progress Notes Patient: Deja MUÑOZMaricarmen GRECO :Amadeo Lemus M.D.:1980???Age:44 Y ???Sex:FemaleDate:04/11/2025Phone:[phone]:[address] [place] [address], [place], [id number]:EMY LEMUS Subjective: * Chief Complaints: * 1 . MD. * Medical History: Objective: * Vitals: Assessment: Plan: * Treatment: * * Electronic signature of Emy Lemus MD, [id number] on 04/19/2025 at 11:16 AM EDTSign off status: PendingVisit Status:?PEN (Pending) * Provider: Harpreet Lemus M.D. Date: Generated for Printing/Faxing/eTransmitting on:?04/19/2025 11:16 AM EDT
--- OUTSIDE RECORDS SUMMARY | 2025-04-11 07:30 | XMS_ITS ---
Author Organization The [facility] in [place] Address [address] [place] [address] Care Team Providers Care Women Specialist Name Role Phone EMY LEMUS Primary Care Provider Unavailabl EMY Kingsley Unavailable [phone] REASON FOR VISIT CL.5 Encounters Encounter Location Date Provider Diagnosis [facility] [address] [place] [phone] 04/11/2025 EMY LEMUS Plan Of Treatment Next Appt Details Provider Name:EMY LEMUS , 05/11/2025 09:00:00 AM, [address] [place] [address], [phone], Provider Name:Emy Lemus , 06/06/2025 09:30:00 AM, [address] [place] [address], [phone], Provider Name:Emy Lemus , 06/06/2025 09:45:00 AM, [address] [place] [address], [phone], Progress Notes * Maricarmen ANDERSONDOB: 3 (44 yo F)Acc No.[id number]:04/11/2025 UNLOCKED PROGRESS NOTE Progress Note Patient: Deja MUÑOZMaricarmen GRECO :TELLO LEMUS M.D.:1980???Age:44 Y ???Sex:FemaleDate:04/11/2025Phone:[phone]:[address] [place] [phone]:EMY LEMUS Subjective: * Chief Complaints: * 1 . CL.5. * Medical History: Objective: * Vitals: Assessment: Plan: * Treatment: * * Electronic signature of EMY LEMUS MD on 04/19/2025 at 11:11 AM EDTSign off status: PendingVisit Status:?PEN (Pending) * Provider: Harpreet LEMUS M.D. Date: Generated for Printing/Faxing/eTransmitting on:?04/19/2025 11:11 AM EDT
--- OUTSIDE RECORDS SUMMARY | 2025-04-13 05:00 | XMS_ITS ---
Author Organization The [facility] in [place] Address [address] [place] [address] Care Team Providers Care Yarn Weight And Strength Tester Name Role Phone EMY LEMUS Primary Care Provider Unavailabl EMY Kingsley Unavailable [phone] REASON FOR VISIT MD Encounters Encounter Location Date Provider Diagnosis [facility] On[facility] [address] [place] [phone] 04/13/2025 EMY LEMUS Plan Of Treatment Next Appt Details Provider Name:EMY LEMUS , 05/11/2025 09:00:00 AM, [address] [place] [address], [phone], Provider Name:Emy Lemus , 06/06/2025 09:30:00 AM, [address] [place] [address], [phone], Provider Name:Emy Lemus , 06/06/2025 09:45:00 AM, [address] [place] [address], [phone], Progress Notes * Maricarmen ANDERSONDOB: 3 (44 yo F)Acc No.[id number]:04/13/2025 UNLOCKED PROGRESS NOTE Progress Notes Patient: Deja MUÑOZMaricarmen GRECO :TELLO LEMUS M.D.:1980???Age:44 Y ???Sex:FemaleDate:04/13/2025Phone:[phone]:[address] [place] [address], [place], [phone]:EMY LEMUS Subjective: * Chief Complaints: * 1 . MD. * Medical History: Objective: * Vitals: Assessment: Plan: * Treatment: * * Electronic signature of EMY LEMUS MD on 04/19/2025 at 11:13 AM EDTSign off status: PendingVisit Status:?CANC (Cancelled) * Provider: Harpreet LEMUS M.D. Date: Generated for Printing/Faxing/eTransmitting on:?04/19/2025 11:13 AM EDT
--- OUTSIDE RECORDS SUMMARY | 2025-04-19 11:14 | XMS_ITS | Clinical Summary ---
Author Organization [facility] Address [address] [place] [address] Care Team Providers Care Hypo Splasher Name Role Phone Sharyn Bradford MD Primary Care Provider [phone] Allergies Active AllergyReactionsCriticalityNoted DateCommentsHydromorphone (Bulk)Itching Snynzf0003/28/2019 Medications MedicationSigDispense QuantityRefillsLast FilledStart DateEnd DateStatus promethazine (PHENERGAN) 25 mg suppository Indications:Gastroparesis1 Suppository by RECTAL route every 6 hours as needed. 180 Suppository 6009/02/2018Active tiZANidine (ZANAFLEX) 4 mg tablet Take 4 mg by mouth daily at bedtime. Active ondansetron orally disintegrating (ZOFRAN ODT) 4 mg disintegrating tablet Take 1 tablet by mouth every 4 hours as needed for Nausea/Vomiting. 8 tablet 05/26/2019Active cholecalciferol (VITAMIN D3) 1,000 unit tab tablet Take 1,000 Units by mouth twice daily.Active acetaminophen (TYLENOL) 500 mg/15 mL liqd Take 500 mg by mouth every 8 hours as needed.Active acetaZOLAMIDE (DIAMOX) 250 mg tablet Take 250 mg by mouth twice daily.Active ubrogepant (UBRELVY) 100 mg tablet Take 100 mg by mouth as needed.Active LORazepam (ATIVAN) 0.5 mg Take 1 mg by mouth daily at bedtime.Active linaclotide (LINZESS) 145 mcg capsule Take 1 capsule by mouth once daily. 30 capsule ctive fremanezumab-vfrm (AJOVY AUTOINJECTOR) 225 mg/1.5 mL auto-injector Inject 225 mg subcutaneously once every month. Do not shake.Active gabapentin (NEURONTIN) 250 mg/5 mL (5 mL) oral solution Take 6 mL by mouth every 8 hours for 90 days. 540 mL 1Active Active Problems ProblemNoted DateDiagnosed DateFlank pain11/09/2020Non-intractable vomiting with istytl3505/25/2020Abdominal pain10/23/2019Malfunction of jejunostomy tube 07/10/2019Obesity, Class II, BMI 35-39.917101Lbwhcwat93/29/2019Chiari I wzaabznfgmpx74/07/2019Acute alteration in mental xexclv5103/11/2019Dehydration 12/24/2018S/P partial ztxkegqdgvp00/18/2019Stricture of jadzyrq4412/07/2018 Anastomotic stricture of qdbgflc1911/02/20184630Xzbujo47/02/2019Mild protein-calorie uqpoglfqeinn87/27/2019Intractable nausea and yxbxohps32/24/2019Obesity, Class III, BMI >= 40007/22/20187388Zpxcnsapytmeq16/29/2018 Overview (03/12/2019): patient has known gastroparesis. G-tube in place and is on tube feeds. 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 -Biopsy proven per patient. -Was on Flovent then a five day course of prednisone was given (completed) Plan: Continue Flovent. Vision pietkaeiichql47/05/2014 Overview (10/25/2013): Pt complains of seeing white spots, her visual field and acuity do not seem to be affected. Ophthalmology consulted, eye exam unremarkable Her dizziness improved, orthostatic negative, no ear symptoms. Jxrosp3110/24/2013 Overview (10/24/2013): Acute, likely 2/2 vaginal bleed, plan for IUD as out-pt. Hgb stable Cbdktzifzel17/03/2014 Overview (10/25/2013): likely 2/2 narcotic, passing gas, does not feel constipated, refuses cotton seed enema Will D/C home with senna and Miralax Vaginal jwqudjzd59/01/2014 Overview (10/25/2013): Pt had her period started week ago was slowing down, got much worse and heavier after Heparin drip,soaks 1 pad Q15 min, now Q30 minutes. . Pt denies dizziness today, VS stable, Hgb relatively stable Benefits/risk explained to pt. Vascular Medicine consulted for vaginal bleed. Continue AC for now. Gynecology consulted as well, they recommended IUD for intermediate accountant management and If becomes hemodynamically unstable or acutely symptomatic with vaginal bleeding, recommend Megace 40mg BID for cessation of bleeding. 5/4: Vaginal bleed slowed down, changes pad only every few hours, Hgb relatively stable, VS stable,pt is asyptomatic, dizziness is better 5/5: 2 pads last 24 hours, CBC and VS stable 10/25: Almost gone. Gynecology as out-pt. Xlzhstpgbnw57/01/2014cute thrombosis of left axillary vein10/20/2013rachial vein thrombosis, left10/20/2013 Overview (11/14/2013): -Recent diagnosis 10/2013 -On coumadin. -INR on presentation 2.8 - INR 2.3 today Plan: Dispo planning Anticoagulation management itqfavfka71/01/2014cute embolism and thrombosis of superficial vein of both upper trwmhckviza27/01/2014rm edema10/20/2013Left arm xmncpoep05/29/2014 Overview (10/25/2013): Reported Hx of her mother [...] GERD PLAN: - Continue PPI Resolved Problems ProblemNoted DateDiagnosed DateResolved DateNausea & /17/2019 06/09/2019Dislodged jejunostomy tubeSyncope10/08/15/20190306Vzfclgu92/Headache10/Headache in front of head Assessment & Plan (03/12/2019 11:56 AM EDT): Assessment: - Frontal headache for past 2-3 days - Some photophobia - denies visual changes - intermittent dizziness with standing, this is not new PLAN: - headache cocktail PRN - MRI brain - EEG Altered lphymvvv64 Overview (03/12/2019): Altered Mentation beginning on 02/26, thought due to UTI initially. Placed on CIpro course of ABX without improvement presented to several OSH ED and admitted once to [facility] with Negative MRI/EEG work up Continues to [...] Placed on Cipro and presented to OSH [facility] and had a negative culture, antibiotics were stopped - She had an MRI/EEG workup at [facility] - negative - Continues symptoms- confusion, memory loss, slow to respond, slowed speech, numbness intermittently in upper extremities. New frontal headache over past 2-3 days, no visual changes. PLAN: - EEG - MRI kem MYRIAM - Thiamine, B6, B12, Ammonia, Lead, niacin, Ferritin, copper, Vit E pending - PRN headache cocktail - Neurology consulted Nausea & hptbkfbp15Hypokalemia Overview (10/23/2013): K 3.3, likely 2/2 poor oral intake, replaced. Abdominal pain Overview (11/14/2013): - Hx of cholecystectomy and [...] anticoagulation. -Pain and Nausea control. Nausea and evridctw01 Overview (10/19/2013): Please see abdominal pain for more details. Zofran prn. Immunizations ImmunizationAdministration DatesNext Dueinfluenza (IIV4) vaccine, age 6 mo - 64 yr, quadrivalent, PF (AFLURIA, FLUARIX, FLULAVAL, FLUZONE)05/27/2020,04/10/2019 Family History Medical HistoryRelationCommentsALSFatherIschemic Heart DiseaseFatherage 56 DiabetesMotherHypertensionOtherNo Known ProblemsSisterRelationStatusComments FatherDeceasedMotherAliveOtherSister Social History Tobacco UseTypesPacks/DayYears UsedDateSmoking Tobacco: NeverSmokeless Tobacco: NeverAlcohol UseStandard Drinks/WeekCommentsNo0 (1 standard drink = 0.6 oz pure alcohol)Overall Financial Resource Strain (CARDIA)AnswerDate RecordedHow hard is it for you to pay for the very basics like food, housing, medical care, and heating?Not hard at all10/24/2019PHQ-2AnswerDate RecordedPHQ2 Pgazs379 Hunger Vital SignAnswerDate RecordedWithin the past 12 months, you worried that your food would run out before you got the money to buymore.Never true10/24/2019 Within the past 12 months, the food you bought just didn't last and you didn't have money to get more.Never true10/24/2019PRAPARE - TransportationAnswerDate RecordedIn the past 12 months, has lack of transportation kept you from medical appointments or from getting medications?No10/24/2019In the past 12 months, has lack of transportation kept you from meetings, work, or from getting things needed for daily living?No10/24/2019Area Deprivation IndexAnswerDate Recorded National Score (1-100), lower number is lower riskNot on file05/26/2020State Score (1-10), lower number is lower riskNot on file05/26/2020Data from: https://www.neighborhoodatlas.medicine.[facility].edu/. Last address used for calculationNot on file05/26/2020CommentsNoSex and Gender Information ValueDate RecordedSex Assigned at KsbtfPiuqse31/29/2021 8:13 PM EDTLegal Sex Zdmnwh1105/23/2012 9:42 AM ESTGender VzmagbqkDzqmgt21/29/2021 8:13 PM EDTSexual XbxpqsrvmurBtcoizcm55/29/2021 8:13 PM EDT Last Filed Vital Signs Vital SignReadingTime TakenCommentsBlood Jhltmzhs164/63011/13/2020 2:52 PM EDT Cfhee3825/25/2021 2:52 PM SBWUlzjztsliml11.5 ??C (97.7 ??F)11/12/2020 11:40 AM EDTRespiratory Cgwm370111/12/2020 11:40 AM EDTOxygen Jmegksnqrg824%11/13/2020 2:52 PM EDTInhaled Oxygen Concentration--Jfikdt47.5 kg (215 lb)11/09/2020 2:15 PM EDT Jumksg963.6 cm (5' 5.98 )11/09/2020 2:15 PM EDTBody Mass Index34.72011/09/2020 2:15 PM EDT Plan of Treatment Health MaintenanceDue DateLast DoneCommentsAnxiety Hdvbxusqw74/11/2001Depression Nmjmmlhhb08/11/2001HIV Yclowcafn01/11/2001Hepatitis C Loxdbltzt91/11/2001 DTaP,Tdap,Td Vaccine (1 - Tdap)2001Hepatitis B Vaccine (1 of 3 - 19+ 3- dose series)2001HPV Vaccine (1 - 3-dose SCDM series)2009Cervical Cancer Mpheulriz27Mammogram Xwyqmgljb77/11/2023Covid-19 Vaccine (1 - season)2025Influenza Vaccine (#1)2025 05/27/2020, 08/29/2019, 04/10/2019, Additional history exists Medical Devices ImplantedTypeAreaManufacturerDevice IdentifierShelf Expiration DateModel / Serial / LotSt Hudson 46 Implanted:Qty: 1 on 04/11/2020LeadHeartST [id number] / / [place] 52 Implanted:Qty: 1 on 04/11/2020LeadHeartST [id number] / / [place] Assurity Mri [id number] Implanted:Qty: 1 on 04/11/2020PacemakerChest WallST [id number] / / [id number] Assurity [id number] Implanted:04/11/2020 (Quantity not on file)PacemakerST [id number] Assurity MRI / [id number] / Tray Port-A-Cath Ii 7.8fr 2.6mm 1.6mm Polysulfone Titanium Polyurethane 76 - [id number] Implanted:07/22/[address] [facility] (Quantity not on file)PortRight: Chest WallSSUMMA HEALTH BARBERTON CAMPUS MEDICAL ASD [id number] / / [id number] Feeding Tube 10f 60cm Implanted:Qty: 1 [facility] [facility]: NoseCORPAK [id number] / / [id number] Ponsky 20fr Silicone Peg Pull Deluxe Kit Non Safety Sterile - [id number] Implanted:01/31/[address] [facility] (Quantity not on file)TubeLeft: AbdomenBARD PERIPHERAL VHKAYQFM35/[id number] / / [id number] Claudio Secur-Migeu 20fr Standard J Silicone Jejunostomy Trimmable Distal - [id number] Implanted:04/20/[address] [facility] (Quantity not on file)TubeLeft: AbdomenHALYARD [id number] / / [id number] Claudio Secur-Migue 18fr Standard Silicone Natural Rubber Jejunostomy - [id number] Implanted:07/11/[address] [facility] (Quantity not on file)TubeLeft: AbdomenHALYARD HBWLUX08-18 / / [id number] Endovive 20fr Xylocaine Silicone Peg Pull Method Ampule Trocar Cannula - [id number] Implanted:10/25/[address] [facility] (Quantity not on file)TubeN/A: AbdomenBOSTON SCIENTIFIC FYOWKNGNQ82/30/[id number] / / [id number] Insurance * Guarantor: Maricarmen Tran TypeRelation to PatientDate of BirthPhone Billing AddressSelf VhiXpty60 1980 [id number] [facility] [address] [place] [address] Advance Directives * Full Code (Latest Code Status on File) Date ActivatedDate InactivatedComments11/12/2020 7:42 AM11/12/2020 10:05 PM QuestionAnswerCommentsFull Code Order Discussed With:* Patient * Full Code Date ActivatedDate InactivatedComments10/26/2019 3:29 PM10/26/2019 6:42 PMQuestion AnswerCommentsFull Code Order Discussed With:* Patient * Full Code Date ActivatedDate InactivatedComments08/11/2019 10:46 AM08/15/2019 6:10 PM QuestionAnswerCommentsFull Code Order Discussed With:* Patient Care Teams Team MemberRelationshipSpecialtyStart DateEnd Date Sharyn Bradford MD [address] [place] [phone] [facility] - General10/18/13
--- OUTSIDE RECORDS SUMMARY | 2025-04-19 11:14 | XMS_ITS | Clinical Summary ---
Author Organization [facility] Address [address] [place] [address] Care Team Providers Care Vice President Payment Name Role Phone Unavailable Primary Care Provider Unavailabl e Social History Tobacco UseTypesPacks/DayYears UsedDateSmoking Tobacco: Never Assessed CommentsUnknownSex and Gender InformationValueDate RecordedSex Assigned at Not on fileLegal UggZqpkau57/15/2023 7:23 PM EDTGender IdentityNot on fileSexual OrientationNot on file Last Filed Vital Signs Vital SignReadingTime TakenCommentsBlood Mnwlmifg448/8404 12:00 PM EDT Pulse--Temperature--Respiratory Rate--Oxygen Saturation--Inhaled Oxygen Concentration--Tedvlv951 kg (257 lb)09/22/2022 12:00 PM CHJVgufpo255.4 cm (5' 5.5 )09/22/2022 12:00 PM EDTBody Mass Index42.1204 12:00 PM EDT Plan of Treatment Not on file Insurance
--- OUTSIDE RECORDS SUMMARY | 2025-04-19 11:15 | XMS_ITS | Patient Health Record ---
Author Organization [facility] in [place] Address [address] [place] [address] Care Team Providers Care Brim Setter Name Role Phone EMY LEMUS Primary Care Provider Unavailabl e Emy Lemus Unavailable [phone] RENATE LEMUSORVA Unavailable [phone] Results Component Value Reference Range Notes CBC AUTO DIFF (Not yet revie wed by provider) Interpretation: Performing Lab: Notes/Report: [facility] , White Blood Count 5.1 4.0-11.0 10 3/uL Red Blood Count4.274.20-5.40 10 6/zMXysabzlwzo94.412.0-16.0 g/tDDufxmmqujt61.9 36.0-48.0 %Mean Corpuscular Deusvy04.181.0-99.0 fLMean Corpuscular Hemoglobin 33.726.7-34.0 pgMean Corpuscular HGB Conc34.429.9-35.2 g/dLRed Cell Distribution Width12.711.0-15.0 %Platelet Zgzoz747418-643 10 3/uLMean Platelet Volume9.09.5- 13.5 fLNeutrophils Percent Auto55.243.0-75.0 %Lymphocytes Percent Auto33.820.5- 60.0 %Monocytes Percent Auto6.11.7-12.0 %Eosinophils Percent Auto3.90.9-7.0 % Basophils Percent Auto0.80.2-2.0 %Immature Granulocytes Pct Auto0.20.0-0.5 % Neutrophils Absolute Auto2.81.4-6.5 10 3/uLLymphocytes Absolute Auto1.71.2-3.8 10 3/uLMonocytes Absolute Auto0.30.3-0.8 10 3/uLEosinophils Absolute Auto0.20.0- 0.7 10 3/uLBasophils Absolute Auto0.00.0-0.1 10 3/uLImmature Granulocytes Abs Auto0.010.00-0.03 10 3/uLPerforming Lab:see note - [facility] LB FERRITIN (Not yet reviewed by provider) Interpretation: Performing Lab: Notes/Report: [facility] ,Jashdexo12.08.0-252.0 ng/mLPerforming Lab:see note - [facility] LB VITAMIN D 25 [place] (Not yet reviewed by provider) Interpretation: Performing Lab: Notes/Report: [facility] ,Vitamin D26.9 30-100 ng/mL Vit D sufficient 20-<30 ng/mL Vit D insufficient <20 ng/mL Vit D deficient >100 ng/mL Potential Toxicity [facility]Not yet reviewed by provider) Interpretation: Performing Lab: Notes/Report: [facility] ,Vitamin [id number] pg/mL [address], [place] [id number] Performed at: [facility] Manager Mental Health: Prabhakar Warren PhD, Phone: [phone] Performing Lab:see [facility] LBFERRITIN (Not yet reviewed by provider) Interpretation: Performing Lab: Notes/Report: [facility] ,Lokzadvr67.08.0-252.0 ng/mLPerforming Lab:see note - [facility] LB IRON AND TIBC (Not yet reviewed by provider) Interpretation: Performing Lab: Notes/Report: [facility] ,Gexg525.050.0-170.0 ug/dLTotal Iron Binding Mmeldhtk004.0250.0-450.0 ug/dL Percent Iron Muadxnkltz47.4Performing Lab:[facility] PROF CHEM 8 (BAS METB) (Not yet reviewed by provider) Interpretation: Performing Lab: Notes/Report: [facility] ,Njlyti576051-249 mmol/LPotassium4.33.5-5.1 mmol/WMamnmjme57709-127 mmol/LCarbon Imknyee73.321.0-32.0 mmol/LAnion Gap14.0Ygocivb3501-713 mg/dLBlood Urea Nitrogen 11.07.0-18.0 mg/dLCreatinine0.940.55-1.02 mg/dLEstimated GFR ( Mariela>60 >=60 mL/min/1.73m 2Estimated GFR (Non- Terri>60>=60 mL/min/1.73m 2BUN Creatinine Ratio11.1Hlrubdf6.28.5-10.1 mg/dLPerforming Lab:see noteML - [facility] LBVITAMIN D 25 [place] (Not yet reviewed by provider) Interpretation: Performing Lab: Notes/Report: [facility] ,Vitamin D31.2 <20 ng/mL Vit D deficient 20-<30 ng/mL Vit D insufficient >100 ng/mL Potential Toxicity 30-100 ng/mL Vit D sufficient Performing Lab:see note - [facility] LBFERRITIN (Not yet reviewed by provider) Interpretation: Performing Lab: Notes/Report: [facility] ,Smawpeuh983.08.0-252.0 ng/mLPerforming Lab:see note - [facility] LBIRON AND TIBC (Not yet reviewed by provider) Interpretation: Performing Lab: Notes/Report: [facility] ,Iron59.050.0-170.0 ug/dLTotal Iron Binding Idfbxnxt173.0250.0-450.0 ug/dL Percent Iron Rsqrhywmik64.3Performing Lab:see note - [facility] LB PROF CHEM 8 (BAS METB) (Not yet reviewed by provider) Interpretation: Performing Lab: Notes/Report: [facility] ,Hkfrwn456428-442 mmol/LPotassium3.33.5-5.1 mmol/ZBfleklto08221-983 mmol/LCarbon Vdstefu02.621.0-32.0 mmol/LAnion Gap7.6Mswucxz44124-366 mg/dLBlood Urea Nitrogen 8.07.0-18.0 mg/dLCreatinine1.060.55-1.02 mg/dLEstimated GFR ( Mariela>60 >=60 mL/min/1.73m 2Estimated GFR (Non- Ame57>=60 mL/min/1.73m 2BUN Creatinine Ratio7.0Osgmgdy6.88.5-10.1 mg/dLPerforming Lab:see note - [facility] LBVITAMIN D 25 [place] (Not yet reviewed by provider) Interpretation: Performing Lab: Notes/Report: [facility] ,Vitamin D39.3 >100 ng/mL Potential Toxicity <20 ng/mL Vit D deficient 30-100 ng/mL Vit D sufficient 20-<30 ng/mL Vit D insufficient Performing Lab:see note - [facility] LBLAB TESTING (Not yet reviewed by provider) Interpretation: Performing Lab: Notes/Report: [id number] FERRITIN [facility] ,Miscellaneous TestCOMMENT. [address] [place] [address], [place] [id number] Performed at: [facility] Test Ordered: [id number] Ferritin Manager Mental Health: Prabhakar Warren PhD, Phone: [phone] Ferritin 50 ng/mL CB Reference Range: 15-150 Performing Lab:[facility] LBPROF CHEM 8 (BAS METB) (Not yet reviewed by provider) Interpretation: Performing Lab: Notes/Report: [facility] ,Hbsooy478563-121 mmol/LPotassium4.13.5-5.1 mmol/PJhbqqzju57922-310 mmol/LCarbon Hnwhtqe22.421.0-32.0 mmol/LAnion Gap13.6Nqziybt0971-028 mg/dLBlood Urea Nitrogen 12.07.0-18.0 mg/dLCreatinine0.920.55-1.02 mg/dLEstimated GFR ( Mariela>60 >=60 mL/min/1.73m 2Estimated GFR (Non- Terri>60>=60 mL/min/1.73m 2BUN Creatinine Ratio13.8Okkkuhq1.48.5-10.1 mg/dLPerforming Lab:see noteOhio[facility] LBVitamin B12 (Not yet reviewed by provider) Interpretation: Performing Lab: Notes/Report: [facility] ,Vitamin [id number] pg/mL Manager Mental Health: Prabhakar Warren PhD, Phone: [phone] [address] [place] [address], [place] [id number] Performed at: CB - [facility] Performing Lab:see noteLC - [facility] LBCBC AUTO DIFF (Not yet reviewed by provider) Interpretation: Performing Lab: Notes/Report: [facility] ,White Blood Count4.64.0-11.0 10 3/uLRed Blood Count4.244.20-5.40 10 6/uL Tiiuynnukt36.112.0-16.0 g/wRXujtbejhzi20.036.0-48.0 %Mean Corpuscular Jkoklc20.7 81.0-99.0 fLMean Corpuscular Brpljwhsvx01.326.7-34.0 pgMean Corpuscular HGB Conc 34.429.9-35.2 g/dLRed Cell Distribution Width13.111.0-15.0 %Platelet Ssgnp042 150-450 10 3/uLMean Platelet Volume9.69.5-13.5 fLNeutrophils Percent Auto58.1 43.0-75.0 %Lymphocytes Percent Auto29.620.5-60.0 %Monocytes Percent Auto8.01.7- 12.0 %Eosinophils Percent Auto3.20.9-7.0 %Basophils Percent Auto0.90.2-2.0 % Immature Granulocytes Pct Auto0.20.0-0.5 %Neutrophils Absolute Auto2.71.4-6.5 10 3/uLLymphocytes Absolute Auto1.41.2-3.8 10 3/uLMonocytes Absolute Auto0.40.3-0.8 10 3/uLEosinophils Absolute Auto0.20.0-0.7 10 3/uLBasophils Absolute Auto0.00.0- 0.1 10 3/uLImmature Granulocytes Abs Auto0.010.00-0.03 10 3/uLPerforming Lab:see noteML - [facility] LBFERRITIN (Not yet reviewed by provider) Interpretation: Performing Lab: Notes/Report: [facility] ,Qltjkoia26.08.0-252.0 ng/mLPerforming Lab:see note - [facility] LB PROF 14(COMP METB) (Not yet reviewed by provider) Interpretation: Performing Lab: Notes/Report: [facility] ,Czibrc646251-287 mmol/LPotassium3.93.5-5.1 mmol/BZdfvbfxs97085-713 mmol/LCarbon Vbfbkfz17.021.0-32.0 mmol/LAnion Gap13.7Vwueyve93935-898 mg/dLBlood Urea Nitrogen8.07.0-18.0 mg/dLCreatinine0.900.55-1.02 mg/dLEstimated GFR ( Mariela>60>=60 mL/min/1.73m 2Estimated GFR (Non- Terri>60>=60 mL/min/1.73m 2BUN Creatinine Ratio8.0Ofymbwc5.18.5-10.1 mg/dLBilirubin Total0.70.2-1.0 mg/dL Aspartate Amino Xmsluncjpav7611-33 U/LAlanine Pwexabphxsdgzkkd6697-34 U/L Alkaline Fuyksmzuusg0175-394 U/LTotal Protein7.36.4-8.2 g/dLAlbumin Level3.53.4- 5.0 g/dLGlobulin3.8Albumin Globulin Ratio0.9Performing Lab:see note - [facility] LBVITAMIN D 25 [place] (Not yet reviewed by provider) Interpretation: Performing Lab: Notes/Report: [facility] ,Vitamin D33.5 <20 ng/mL Vit D deficient >100 ng/mL Potential Toxicity 30-100 ng/mL Vit D sufficient 20-<30 ng/mL Vit D insufficient Performing Lab:see note - [facility] LBVITAMIN D 25 [place] (Not yet reviewed by provider) Interpretation: Performing Lab: Notes/Report: [facility] ,Vitamin D35.4 20-<30 ng/mL Vit D insufficient <20 ng/mL Vit D deficient 30-100 ng/mL Vit D sufficient >100 ng/mL Potential Toxicity Performing Lab:see note - [facility] LBIRON AND TIBC (Not yet reviewed by provider) Interpretation: Performing Lab: Notes/Report: [facility] ,Iron72.050.0-170.0 ug/dLTotal Iron Binding Inljlnsk860.0250.0-450.0 ug/dL Percent Iron Tyqzhspxna48.2Performing Lab:see note - [facility] LB CBC AUTO DIFF (Not yet reviewed by provider) Interpretation: Performing Lab: Notes/Report: [facility] ,White Blood Count6.74.0-11.0 10 3/uLRed Blood Count4.384.20-5.40 10 6/uL Wecmdazmzs84.612.0-16.0 g/lONythzqbdep57.236.0-48.0 %Mean Corpuscular Lrhxyp81.6 81.0-99.0 fLMean Corpuscular Tykulgvuai49.326.7-34.0 pgMean Corpuscular HGB Conc 33.829.9-35.2 g/dLRed Cell Distribution Width12.811.0-15.0 %Platelet Mhrxf177 150-450 10 3/uLMean Platelet Volume9.29.5-13.5 fLNeutrophils Percent Auto61.0 43.0-75.0 %Lymphocytes Percent Auto27.120.5-60.0 %Monocytes Percent Auto6.91.7- 12.0 %Eosinophils Percent Auto4.30.9-7.0 %Basophils Percent Auto0.60.2-2.0 % Immature Granulocytes Pct Auto0.10.0-0.5 %Neutrophils Absolute Auto4.11.4-6.5 10 3/uLLymphocytes Absolute Auto1.81.2-3.8 10 3/uLMonocytes Absolute Auto0.50.3-0.8 10 3/uLEosinophils Absolute Auto0.30.0-0.7 10 3/uLBasophils Absolute Auto0.00.0- 0.1 10 3/uLImmature Granulocytes Abs Auto0.010.00-0.03 10 3/uLPerforming Lab:see noteML - [facility] LBVitamin B12 (Not yet reviewed by provider) Interpretation: Performing Lab: Notes/Report: [facility] ,Vitamin [id number] pg/mL Manager Mental Health: Prabhakar Warren PhD, Phone: [phone] Performed at: - [address] [id number] Performing Lab:see noteLC - [facility] LBCBC AUTO DIFF (Not yet reviewed by provider) Interpretation: Performing Lab: Notes/Report: [facility] ,White Blood Count2.84.0-11.0 10 3/uLRed Blood Count3.994.20-5.40 10 6/uL Xjqmowzwqh93.512.0-16.0 g/nHVpzxdlykxi40.636.0-48.0 %Mean Corpuscular Uszero15.2 81.0-99.0 fLMean Corpuscular Ksxenkjgcl33.826.7-34.0 pgMean Corpuscular HGB Conc 34.129.9-35.2 g/dLRed Cell Distribution Width12.211.0-15.0 %Platelet Aqpbh409 150-450 10 3/uLMean Platelet Volume9.79.5-13.5 fLNeutrophils Percent Auto45.4 43.0-75.0 %Lymphocytes Percent Auto34.520.5-60.0 %Monocytes Percent Auto18.71.7- 12.0 %Eosinophils Percent Auto0.70.9-7.0 %Basophils Percent Auto0.70.2-2.0 % Immature Granulocytes Pct Auto0.00.0-0.5 %Neutrophils Absolute Auto1.31.4-6.5 10 3/uLLymphocytes Absolute Auto1.01.2-3.8 10 3/uLMonocytes Absolute Auto0.50.3-0.8 10 3/uLEosinophils Absolute Auto0.00.0-0.7 10 3/uLBasophils Absolute Auto0.00.0- 0.1 10 3/uLImmature Granulocytes Abs Auto0.000.00-0.03 10 3/uLPerforming Lab:see noteML - [facility] LBVitamin B12 (Not yet reviewed by provider) Interpretation: Performing Lab: Notes/Report: [facility] ,Vitamin [id number] pg/mL Manager Mental Health: Prabhakar Warren PhD, Phone: [phone] [address] [place] [address], [place] [id number] Performed at: CB - [facility] Performing Lab:see noteLC - [facility] LBCBC AUTO DIFF (Not yet reviewed by provider) Interpretation: Performing Lab: Notes/Report: [facility] ,White Blood Count4.54.0-11.0 10 3/uLRed Blood Count4.054.20-5.40 10 6/uL Akhowivqro89.112.0-16.0 g/wMLaafekanql93.236.0-48.0 %Mean Corpuscular Volume 101.781.0-99.0 fLMean Corpuscular Cswujwqlei29.826.7-34.0 pgMean Corpuscular HGB Conc34.229.9-35.2 g/dLRed Cell Distribution Width12.411.0-15.0 %Platelet Count 994361-298 10 3/uLMean Platelet Volume9.69.5-13.5 fLNeutrophils Percent Auto59.9 43.0-75.0 %Lymphocytes Percent Auto30.120.5-60.0 %Monocytes Percent Auto7.11.7- 12.0 %Eosinophils Percent Auto2.00.9-7.0 %Basophils Percent Auto0.70.2-2.0 % Immature Granulocytes Pct Auto0.20.0-0.5 %Neutrophils Absolute Auto2.71.4-6.5 10 3/uLLymphocytes Absolute Auto1.41.2-3.8 10 3/uLMonocytes Absolute Auto0.30.3-0.8 10 3/uLEosinophils Absolute Auto0.10.0-0.7 10 3/uLBasophils Absolute Auto0.00.0- 0.1 10 3/uLImmature Granulocytes Abs Auto0.010.00-0.03 10 3/uLPerforming Lab:see noteML - [facility] LBPROF CHEM 8 (BAS METB) (Not yet reviewed by provider) Interpretation: Performing Lab: Notes/Report: [facility] ,Aulwlr966550-027 mmol/LPotassium3.93.5-5.1 mmol/JPoeafnry07681-275 mmol/LCarbon Swznefu50.921.0-32.0 mmol/LAnion Gap10.1Uzozdqh88066-203 mg/dLBlood Urea Nitrogen7.07.0-18.0 mg/dLCreatinine1.160.55-1.02 mg/dLEstimated GFR ( Mariela>60>=60 mL/min/1.73m 2Estimated GFR (Non- Ame51>=60 mL/min/1.73m 2 BUN Creatinine Ratio6.6Bibxxwr6.18.5-10.1 mg/dLPerforming Lab:see noteML - [facility] LBIRON AND TIBC (Not yet reviewed by provider) Interpretation: Performing Lab: Notes/Report: [facility] ,Fuct040.050.0-170.0 ug/dLTotal Iron Binding Rzwbkumi879.0250.0-450.0 ug/dL Percent Iron Gotyfkmgnp46.2Performing Lab:see note - [facility] LB IRON AND TIBC (Not yet reviewed by provider) Interpretation: Performing Lab: Notes/Report: [facility] ,Otis000.050.0-170.0 ug/dLTotal Iron Binding Sjsourmb424.0250.0-450.0 ug/dL Percent Iron Lnokmrbstm05.4Performing Lab:see note - [facility] LB Vitamin B12 (Not yet reviewed by provider) Interpretation: Performing Lab: Notes/Report: [facility] ,Vitamin [id number] pg/mL Manager Mental Health: Prabhakar Warren PhD, Phone: [phone] [address] [place] [address], [place] [id number] Performed at: - [facility] Performing Lab:see noteLC - [facility] LB Reason For Referral No Information Encounters Encounter Location Date Provider Diagnosis [facility] [address] [facility] [place] [address] 06/07/2024 [facility] [address] [facility] [place] [address]/04[facility] [address] [facility] [place] [address]/poorva [facility] [address] [facility] [place] [address]/poorva [facility] Oncology [address] [facility] [place] [address]/poorva [facility] [address] [facility] [place] [address]/poorva [facility] [address] [facility] [place] [address]/ [facility] [address] [facility] [place] [place] [address]/POMIVA [facility] [address] [facility] [place] [address]/povava [facility] Oncology [address] [facility] [place] [address]/povava [facility] [address] [facility] [place] [address]/poorva [facility] [address] [facility] [place] [address]/ Emy [facility] [address] [facility] [place] [address]/[facility] [address] [facility] [place] [address]/[facility] [address] [facility] [place] [address]/poorva [facility] Plan Of Treatment Pending Test Test Name Order Date CBC AUTO DIFF 01/13/2024 CBC AUTO DIFF 02/09/2024 CBC AUTO DIFF 06/02/2024 CBC AUTO DIFF 07/05/2024 CBC AUTO DIFF 10/31/2024 CBC AUTO DIFF 01/09/2025 CBC AUTO DIFF 04/10/2025 CRP 12/22/2023 FERRITIN 12/22/2023 FERRITIN 06/02/2024 FERRITIN 02/09/2024 FERRITIN 10/31/2024 FERRITIN 07/05/2024 FERRITIN 04/10/2025 IRON AND TIBC 04/10/2025 IRON AND TIBC 10/31/2024 IRON AND TIBC 01/09/2025 IRON AND TIBC 07/05/2024 IRON AND TIBC 06/02/2024 IRON AND TIBC 02/09/2024 IRON AND TIBC 12/22/2023 LAB TESTING 12/22/2023 LAB TESTING 01/09/2025 PROF 14(COMP METB) 04/10/2025 PROF CHEM 8 (BAS METB) 01/09/2025 PROF CHEM 8 (BAS METB) 10/31/2024 PROF CHEM 8 (BAS METB) 07/05/2024 PROF CHEM 8 (BAS METB) 06/02/2024 VITAMIN D 25 [place] 07/05/2024 VITAMIN D 25 [place] 10/31/2024 VITAMIN D 25 [place] 01/09/2025 VITAMIN D 25 [place] 06/02/2024 VITAMIN D 25 [place] 02/09/2024 VITAMIN D 25 [place] 04/10/2025 Erythrocyte Sedimentation Rate 4 Vitamin B12 02/09/2024 Factor V Leiden Mutation 12/22/2023 Factor II, DNA Analysis 12/22/2023 Beta-2 Glycoprotein I Ab,G,A,M Vitamin B12 01/09/2025 Vitamin B12 10/31/2024 Vitamin B12 07/05/2024 Vitamin B12 06/02/2024 Vitamin B12 04/10/2025 Next Appt Details Provider Name:EMY LEMUS , 05/11/2025 09:00:00 AM, [address] [place] [address], [phone], Provider Name:Emy Lemus , 06/06/2025 09:30:00 AM, [address] [place] [address], [phone], Provider Name:Emy Lemus , 06/06/2025 09:45:00 AM, [address] [place] [address], [phone], Insurance Providers Payer Name Payer Address Payer Phone Subscriber Number Group Number Insured Name Patient Relationship to Insured Coverage Start Date Coverage End Date [employer] MED[employer]ARE [address] [place], [place] [id number] Tutu Tran - patient is the [id number] 2024[facility] [address] [facility] [place] [id number] [employer]u Tran - patient is the [id number] 2023
--- OUTSIDE RECORDS SUMMARY | 2025-04-19 11:15 | XMS_ITS | Clinical Summary ---
Author Organization [facility] Address [address] 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 Press Operator Name Role Phone Sharyn Bradford MD Primary Care Provider [phone] Allergies Active AllergyReactionsCriticalityNoted DateCommentsHydromorphoneItching,Unknown 03/27/2019 Medications MedicationSigDispense QuantityRefillsLast FilledStart DateEnd DateStatus ARIPiprazole (Abilify) 30 mg tablet Take 1 tablet (30 mg) by mouth once daily.09/03/2022ctive erenumab (Aimovig Autoinjector) 70 mg/mL injection Inject 1 mL (70 mg) under the skin every 28 (twenty-eight) days.12/19/2020ctive linaCLOtide (Linzess) 145 mcg capsule Take 1 capsule (145 mcg) by mouth once daily.12/13/2020ctive metoprolol succinate XL (Toprol-XL) 25 mg 24 hr tablet Take 1 tablet (25 mg) by mouth once daily.01/20/2023ctive mirtazapine (Remeron) 15 mg tablet Take 1 tablet (15 mg) by mouth once daily at bedtime.04/14/2023ctive Invega Sustenna 234 mg/1.5 mL syringe Inject 1.5 mL (234 mg) into the muscle.04/06/2023ctive traZODone (Desyrel) 50 mg tablet Take 1 tablet (50 mg) by mouth once daily at bedtime.09/03/2022ctive venlafaxine XR (Effexor-XR) 150 mg 24 hr capsule Take 1 capsule (150 mg) by mouth once daily.Active Active Problems ProblemNoted DateDiagnosed KflbNzqpanb57/18/2023ardiac /18/2023 Complete heart block06/08/2023IIH (idiopathic intracranial hypertension) 06/08/2023Renal mass06/08/2023trial cotfvklewwe52/18/2023Sinus node dysfunction 06/08/2023Sinus bfqhqehhspl02/18/2447Hsuoinyb59/18/6076Gkcijue83/18/2023hiari I ctaszicfamtp20/07/2019Mild protein-calorie nmjcsicrqzvf59/27/2019Obesity, Class III, BMI 40-49.9 (morbid obesity)07/22/2018Eosinophilic ezozcsestnn60/22/2014 Overview (06/08/2023): -Recent diagnosis. -Biopsy proven perpatient. -Was on Flovent then a five day course of prednisone was given (completed) Plan: Continue Flovent. Mujmpx9410/24/2013 Overview (06/08/2023): Acute, likely 2/2 vaginal bleed, planfor IUD as out-pt. Hgb stable Acute thrombosis of left axillary vein10/20/2013 Encounters DateTypeDepartmentCare JnslYzwbcuzxpun74/24/2025 9:35 AM EDT - 03/15/2025 11:59 PM EDTHospital Encounter [address] [phone] Pacemaker; Sick sinus syndrome (Multi) Discharge Disposition: Homefrom Last 3 Months Family History Medical HistoryRelationNameCommentsDiabetesFatherGlaucomaFathercardiac disorder FatherDiabetesMotherRelationNameStatusCommentsFatherMother Social History Tobacco UseTypesPacks/DayYears UsedDateSmoking Tobacco: NeverSmokeless Tobacco: NeverAlcohol UseStandard Drinks/WeekCommentsNot Currently0 (1 standard drink = 0.6 oz pure alcohol)CommentsUnknownSex and Gender InformationValueDate RecordedSex Assigned at BirthNot on fileLegal UgyAhujws20/25/2022 1:37 PM EST Gender IdentityNot on fileSexual OrientationNot on file Last Filed Vital Signs Vital SignReadingTime TakenCommentsBlood Mtzrokiw035/72007/22/2022 10:12 AM EST Aojil7477 10:12 AM ESTTemperature--Respiratory Mozt3043 1:15 PM ESTOxygen Yaezugsetv184%06/20/2020 6:50 AM ESTInhaled Oxygen Concentration-- Ityrcs275 kg (259 lb)07/22/2022 10:12 AM HIFXypczt681.6 cm (5' 6 )07/22/2022 10:12 AM ESTBody Mass Index41. 10:12 AM EST Plan of Treatment Health MaintenanceDue DateLast DoneCommentsHIV Ivyejsieh20/11/1983Lipid Panel 1982Medicare Annual Wellness Visit (AWV)1982MMR Vaccines (1 of 1 - Standard series)10/31/1983Hepatitis C Iycwdxjtb47/11/2001Hepatitis A Vaccines (1 of 2 - Risk 2-dose series)2001Hepatitis B Vaccines (1 of 3 - 19+ 3-dose series)2001Cervical Cancer Jrpbzoqce01/11/2004HPV/Oswfqg2210/31/2003Pap Smear10/31/2003DTaP/Tdap/Td Vaccines (1 - Tdap)2004HPV Vaccines (1 - 3- dose standard series)2009Diabetes Domopkfcx14, 05/26/2020, 04/09/2020, Additional history jwfxujAdaoxtame44/11/2023Influenza Vaccine (#1)512/11/2019, 08/29/2019, 04/10/2019, Additional history existsCOVID-19 Vaccine ( - 2024- season)2025Zoster Vaccines (1 of 2) 2032HIB VaccinesAged OutNo longer eligible based on patient's age to complete this topicIPV VaccinesAged OutNo longer eligible based on patient's age to complete this topicMeningococcal VaccineAged OutNo longer eligible based on patient's age to complete this topicPneumococcal Vaccine: Pediatrics and At-Risk Adult PatientsAged OutNo longer eligible based on patient's age to complete this topicRotavirus VaccinesAged OutNo longer eligible based on patient's age to complete this topic Procedures Procedure NamePriorityDate/TimeAssociated DiagnosisCommentsCARDIAC DEVICE CHECK - REMOTE - PAGAABRJAOzhbhzl16/24/2025 9:41 AM EDT Pacemaker Sick sinus syndrome (Multi) COMPREHENSIVE METABOLIC HBXRRTftzzpp51/30/2020 7:23 AM EST from Last 3 Months or Most Recently Relevant to Health Maintenance Results * CARDIAC DEVICE CHECK - REMOTE - PACEMAKER (03/15/2025 9:41 AM EDT)Anatomical RegionLateralityModalityMonitor/DeviceSpecimen (Source)Anatomical Location / LateralityCollection Method / VolumeCollection TimeReceived Time03/15/2025 2:00 AM EDT Narrative Authorizing ProviderResult TypeResult StatusRita Still [facility] [place] IMPLANTABLE CARDIAC DEVICE PROCEDURESFinal Result * (ABNORMAL) Comprehensive Metabolic Panel (06/20/2020 7:23 AM EST)Component ValueRef RangeTest MethodAnalysis TimePerformed AtPathologist SignatureGlucose 8774 - 99 mg/dLADVENTHEALTH [facility] TGPIskfnx412358 - 145 mmol/[facility] LABPotassium3.73.5 - 5.3 mmol/[facility] Azokfurj122(H)98 - 107 mmol/[facility] PQMNlydrpeigij5247 - 32 mmol/[facility] LABAnion Wmm7803 - 20 mmol/[facility] LABUrea Ratpmlfq036 - 23 mg/dLADVENTHEALTH [facility] LABCreatinine0.790.50 - 1.05 mg/dLADVENT[facility]ALTH [facility] LABGLOMERULAR FILTRATION RATE-NON >60>60 mL/min/1.77t0PFCLILADVENTHEALTH ORLANDO LABGLOMERULAR FILTRATION RATE->60>60 mL/min/1.21e8GXVYWCADVENTHEALTH ORLANDO LABComment: CALCULATIONS OF ESTIMATED GFR ARE PERFORMED USING THE MDRD STUDY EQUATION FOR THE IDMS-TRACEABLE CREATININE METHODS. CLIN CHEM 2007;53:766-72 Calcium9.28.6 - 10.3 mg/dLADVENTHEALTH [facility] LABAlbumin4.03.4 - 5.0 g/dL [facility] LABAlkaline Qdnntbvxbdb0165 - 110 U/[facility] LABTotal Protein7.16.4 - 8.2 g/dLADVENTHEALTH [facility] DJOHUZ898 - 39 U/[facility] LABTotal Bilirubin0.30.0 - 1.2 mg/dLADVENTHEALTH [facility] LABALT (SGPT)107 - 45 U/[facility] LABComment: Patients treated with Sulfasalazine may generate falsely decreased results for ALT. Specimen (Source)Anatomical Location / LateralityCollection Method / Volume Collection TimeReceived Time06/20/2020 7:23 AM EST06/20/2020 7:27 AM EST Narrative Authorizing ProviderResult TypeResult StatusEliignacia VILLAVICENCIO BLOOD ORDERABLESFinal ResultPerforming OrganizationAddressCity/State/ZIP CodePhone Number [facility] from Last 3 Months or Most Recently Relevant to Health Maintenance Insurance Care Teams Team MemberRelationshipSpecialtyStart DateEnd Date Sharyn Bradford MD [facility] [place] [address] [facility] - [facility]03/02/20
--- NOTE | 2025-04-19 11:29 | PM.CN ---
Consult Note: HPI Data of Consult Patient: known to practice within the last 3 years Requesting Physician: Yareli Phillips NP Primary Care Provider: Sharyn Bradford MD Consult Narrative Reason for consult: neck pain Narrative: 44yof who presents for assessment of chronic neck pain. physical therapy was ordered and patient attended first session, but she was told that given her chiari malformation, it was too risky for them to proceed with any further cervical therapy. utilizing zanaflex 2-4mg bid prn with benefit. pain today 6/10 sharp aching in neck increasing with twisting, turning, lifting, ADLs, and sleep. recently underwent bilateral C3-4 C4-5 MBB with less than 80% improvement while anesthetized, preop pain up to 8/10 post op pain 4/10. cc:: CC: Yareli Phillips NP Review of Systems ROS Musculoskeletal Reports: neck pain PFSH PFSH Medical History Hypertension ?I10 - Essential (primary) hypertension (ICD-10) Schizophrenia ?F20.9 - Schizophrenia, unspecified (ICD-10) DVT (deep venous thrombosis) ?I82.409 - Acute embolism and thrombosis of unspecified deep veins of unspecified lower extremity (ICD-10) Obesity ?E66.9 - Obesity, unspecified (ICD-10) Pacemaker ?Z95.0 - Presence of cardiac pacemaker (ICD-10) Sick sinus syndrome due to SA node dysfunction ?I49.5 - Sick sinus syndrome (ICD-10) Gastroparesis ?K31.84 - Gastroparesis (ICD-10) Surgical History S/P reconstruction of ligament of knee ?Z98.890 - Other specified postprocedural states (ICD-10) History of cholecystectomy ?Z90.49 - Acquired absence of other specified parts of digestive tract (ICD-10) Hx of appendectomy ?Z90.49 - Acquired absence of other specified parts of digestive tract (ICD-10) Social History Within the past year, how often did you have a drink containing alcohol: never Score interpretation: A score less than 3 is consistent with normal alcohol consumption. Smoking status: Never smoker Non-prescribed substance use: denies use Highest level of school completed/degree received: high school graduate Are you now , , , , never or living with a partner: living with partner Little interest or pleasure in doing things: not at all Feeling down, depressed, or hopeless: not at all Feel stressed/tense/nervous/anxious/difficulty sleeping: only a little Life stressor details: new baby at age of 42 Do you think of yourself as: straight/heterosexual Gender Identity: female Meds Home Medications and Allergies Home Medications ?Medication ?Instructions ?Recorded ?Confirmed ?Type aripiprazole 30 mg tablet 30 mg PO DAILY 10/26/23 04/10/25 History benztropine 1 mg tablet 1 mg PO BID 10/26/23 04/10/25 History metoprolol succinate 25 mg 25 mg PO DAILY 10/26/23 04/10/25 History tablet,extended release 24 hr mirtazapine 15 mg tablet 15 mg PO .HS 10/26/23 04/10/25 History olanzapine 5 mg tablet 5 mg PO .qd PRN hallucinations 10/26/23 04/10/25 History paliperidone palmitate 234 mg/1.5 234 mg IM Q30D 10/26/23 04/10/25 History mL intramuscular syringe (Invega Sustenna) venlafaxine 150 mg 150 mg PO DAILY 10/26/23 04/10/25 History capsule,extended release 24 hr warfarin 5 mg tablet 5 mg PO DAILY 03/21/24 04/10/25 History tizanidine 4 mg tablet See Rx Instructions .Route 04/06/25 04/10/25 Rx .COMPLEX PRN muscle spasticity #60 tabs Allergies Allergy/AdvReac Type Severity Reaction Status Date / Time hydromorphone (From Dilaudid) Allergy Mild itching Verified 04/10/25 10:49 Exam Constitutional Documenting provider has reviewed patient's vital signs: yes Common normals: no apparent distress, oriented x3, alert and well nourished General appearance: cooperative, disheveled and ill appearing HENKY Common normals: normocephalic, hearing grossly normal bilaterally and moist oral mucous membranes Head and scalp: normocephalic Eye Common normals: PERRL Pupil: PERRL Neck & C-Spine General: normal visual inspection Cervical spine: cervical ROM abnormal, pain with cervical ROM and cervical spine tenderness Other: sensation intact BUE strength 5/5 in BUE Chest Common normals: inspection of chest normal Respiratory Common normals: normal respiratory effort, no retractions and no use of accessory muscles Neuro Common normals: oriented x3 Sensorium/orientation: alert Psych Common normals: mental status grossly normal, thought process normal, cooperative, affect normal, speech normal and activity/motor behavior normal Speech: normal speech Thought process: normal thought process Results Additional Findings Additional findings: If on a controlled substance or opioids, I have checked an [place] report on this patient and there are no aberrancies noted in the prescribing history.??If on a controlled substance or opioid a drug screen was completed and reviewed within the last year, and if there has not been a drug screen completed we ordered one today to monitor higher risk, state monitored pain medication use. As part of providing excellent, safe, comprehensive care, the following was completed at our patient's visit: 1. A medication reconciliation and review to ensure accurate knowledge of current/active medications, including asking our patients to inform us about any nppc-dni-vfwhhdd medications or herbal remedies/nutritional supplements/alternative remedies. 2. A review to specifically ensure our patients have had annual screening for screening for depression, screening for tobacco use, and screening for unhealthy alcohol use. For concerning screenings had a discussion with the patient, provided patient education, and recommended follow-up with primary care provider when appropriate. If patient noted with a risk of falling, they received education on strength, gait, and balance training to prevent future risk of falling. Portions of this note may have been carried over from the previous visit and updated as appropriate. Please note this office utilizes paper charting in addition to the electronic medical record. A list of current medications, vitals, and PMH is available there as the clinical staff outside of myself do not have access to [employer] charting during the clinic day operations. As part of providing quality comprehensive care the current medications, vitals, and PMH were reviewed in the paper chart. Assessment and Plan Assessment and Plan (1) Cervical spondylosis: Assessment and Plan: 04-10-25 bilateral C3-4 C4-5 mbb #1 less than 80% improvement (2) Chiari malformation type I: Plan The patient has had over 3 months of moderate to severe neck pain with functional impairment and inadequate response to conservative care including NSAIDS (unless there are contraindication such as concurrent blood thinners), multiple oral or topical pain medications, and home exercise program/physical therapy.? I have reviewed the imaging of the cervical spine and no red flags were identified.? The imaging reveals radiographic findings consistent with cervical spondylosis, ddd, and cervical stenosis The Oswestry Disability Index was completed, and the patient scored a 28%.? adjust levels to bilateral C4-5 c5-6 facet medial branch block x2 under fluoroscopy in consideration of RFA for facet mediated pain continue tizanidine 2-4mg BID PRN pain/spasms/headaches continue HEP as tolerated, PT discharged patient as noted above shes not a candidate for PT due to chiari malformation continue tylenol prn, cannot take NSAIDs on coumadin f/u after each injection ?
== END 2025-04-19 11:08 | disposition home or self-care (01) ==
LOC: PM 11:07
PROVIDERS: PCP Family Medicine; Visit Provider Nurse Practitioner
DX: M47.812 Spondylosis without myelopathy or radiculopathy, cervical region (principal); G93.5 Compression of brain
CPT/HCPCS: G0463

== ENCOUNTER 2025-04-22 | Outpatient (RCR) | payer MEDICARE, MEDICAID, SELFPAY | END 2025-05-21 23:59 | disposition home or self-care (01) | LOC: MM | PROVIDERS: PCP Family Medicine; Visit Provider Internal Medicine | DX: Z51.81 Encounter for therapeutic drug level monitoring (principal); Z79.01 Long term (current) use of anticoagulants ==

== ENCOUNTER 2025-04-24 10:21 | Day surgery (SDC) | payer MEDICARE, MEDICAID, SELFPAY ==
--- OUTSIDE RECORDS SUMMARY | 2025-04-24 10:25 | XMS_ITS | Clinical Summary ---
Author Organization [facility] Address [address] [place] [address] Care Team Providers Care Manager Baby Name Role Phone Sharyn Bradford MD Primary Care Provider [phone] Allergies Active AllergyReactionsCriticalityNoted DateCommentsHydromorphone (Bulk)Itching Sutudp0703/28/2019 Medications MedicationSigDispense QuantityRefillsLast FilledStart DateEnd DateStatus promethazine [...] Problems ProblemNoted DateDiagnosed DateFlank pain11/09/2020Non-intractable vomiting with zhuolp5805/25/2020Abdominal pain10/23/2019Malfunction of jejunostomy tube 07/10/2019Obesity, Class II, BMI 35-39.913310Icperxuv42/29/2019Chiari I ammjjaqfnecl17/07/2019Acute alteration in mental ezbecu0403/11/2019Dehydration 12/24/2018S/P partial ovskqgwgfyd58/18/2019Stricture of xsjzacf0612/07/2018 Anastomotic stricture of qilspgd2511/02/20185746Glhxei85/02/2019Mild protein-calorie nftfeyyxitwb52/27/2019Intractable nausea and /24/2019Obesity, Class III, BMI >= 40007/22/20189979Mobmgxbygklgg10/29/2018 Overview (03/12/2019): patient has known gastroparesis. G-tube in place and is on tube feeds. s/p surgery with removal of significant portion of stomach Plan continue with tube feeds Assessment & Plan (03/12/2019 11:55 AM EDT): Assessment: - history of gastroparesis - J-tube in place, tube feeds PLAN: - Continue tube feedings Icfkchoiwxt46/05/2014Eosinophilic bsknyrwgcls96/22/2014 Overview (11/14/2013): -Recent diagnosis. -Biopsy proven per patient. -Was on Flovent then a five day course of prednisone was given (completed) Plan: Continue Flovent. Vision xvenvogjvfood72/05/2014 Overview (10/25/2013): Pt complains of seeing white spots, her visual field and acuity do not seem to be affected. Ophthalmology consulted, eye exam unremarkable Her dizziness improved, orthostatic negative, no ear symptoms. Qxddge0410/24/2013 Overview (10/24/2013): Acute, likely 2/2 vaginal bleed, plan for IUD as out-pt. Hgb stable Mmyhvuehcyh11/03/2014 Overview (10/25/2013): likely 2/2 narcotic, passing gas, does not feel constipated, refuses cotton seed enema Will D/C home with senna and Miralax Vaginal laxejain24/01/2014 Overview (10/25/2013): Pt had her period started week ago was slowing down, got much worse and heavier after Heparin drip,soaks 1 pad Q15 min, now Q30 minutes. . Pt denies dizziness today, VS stable, Hgb relatively stable Benefits/risk explained to pt. Vascular Medicine consulted for vaginal bleed. Continue AC for now. Gynecology consulted as well, they recommended IUD for terminologist management and If becomes hemodynamically unstable or acutely symptomatic with vaginal bleeding, recommend Megace 40mg BID for cessation of bleeding. 5/4: Vaginal bleed slowed down, changes pad only every few hours, Hgb relatively stable, VS stable,pt is asyptomatic, dizziness is better 5/5: 2 pads last 24 hours, CBC and VS stable 10/25: Almost gone. Gynecology as out-pt. Kckgedhswtq91/01/2014cute thrombosis of left axillary vein10/20/2013rachial vein thrombosis, left10/20/2013 Overview (11/14/2013): -Recent diagnosis 10/2013 -On coumadin. -INR on presentation 2.8 - INR 2.3 today Plan: Dispo planning Anticoagulation management /01/2014cute embolism and thrombosis of superficial vein of both upper zlyzavsbulb90/01/2014rm edema10/20/2013Left arm wcjhcjol86/29/2014 Overview (10/25/2013): Reported Hx of her mother [...] Resolved Problems ProblemNoted DateDiagnosed DateResolved DateNausea & pystbhae89/17/2019 06/09/2019Dislodged jejunostomy tubeSyncope10/08/15/20198976Yeafzzv31/Headache10/Headache in front of head Assessment & Plan (03/12/2019 11:56 AM EDT): Assessment: - Frontal headache for past 2-3 days - Some photophobia - denies visual changes - intermittent dizziness with standing, this is not new PLAN: - headache cocktail PRN - MRI brain - EEG Altered dvvzhvli30 Overview (03/12/2019): Altered Mentation beginning on 02/26, thought due to UTI initially. Placed on CIpro course of ABX without improvement presented to several OSH ED and admitted once to [facility] with Negative MRI/EEG work up Continues to [...] Placed on Cipro and presented to OSH [facility] and had a negative culture, antibiotics were stopped - She had an MRI/EEG workup at [facility] - negative - Continues symptoms- confusion, memory loss, slow to respond, slowed speech, numbness intermittently in upper extremities. New frontal headache over past 2-3 days, no visual changes. PLAN: - EEG - MRI kem MYRIAM - Thiamine, B6, B12, Ammonia, Lead, niacin, Ferritin, copper, Vit E pending - PRN headache cocktail - Neurology consulted Nausea & rhfychnu10Hypokalemia Overview (10/23/2013): K 3.3, likely 2/2 poor [...] anticoagulation. -Pain and Nausea control. Nausea and fgdsktyl04 Overview (10/19/2013): Please see abdominal pain for [...] care, and heating?Not hard at all10/24/2019PHQ-2AnswerDate RecordedPHQ2 Cfuiy562 Hunger Vital SignAnswerDate RecordedWithin the past 12 [...] number is lower riskNot on file05/26/2020Data from: https://www.neighborhoodatlas.medicine.[facility].edu/. Last address used for calculationNot on file05/26/2020CommentsNoSex and Gender Information ValueDate RecordedSex Assigned at UrcfmLwfosm64/29/2021 8:13 PM EDTLegal Sex Gzogrq4005/23/2012 9:42 AM ESTGender OjbcmmcpIfhsrx03/29/2021 8:13 PM EDTSexual FxfopapcgdrZedmeawx09/29/2021 8:13 PM EDT Last Filed Vital Signs Vital SignReadingTime TakenCommentsBlood Cmejdhks975/63011/13/2020 2:52 PM EDT Fixyg5596/25/2021 2:52 PM SKKXwkweiktnce19.5 ??C (97.7 ??F)11/12/2020 11:40 AM EDTRespiratory Zklw410411/12/2020 11:40 AM EDTOxygen Zxfkjbjzrt536%11/13/2020 2:52 PM EDTInhaled Oxygen Concentration--Zikbdm43.5 kg (215 lb)11/09/2020 2:15 PM EDT Ysrzzp166.6 cm (5' 5.98 )11/09/2020 2:15 PM EDTBody Mass Index34.72011/09/2020 2:15 PM EDT Plan of Treatment Health MaintenanceDue DateLast DoneCommentsAnxiety Klkovvxkl24/11/2001Depression Ytcxprnla45/11/2001HIV Bkpofumcz07/11/2001Hepatitis C Qkdxuqzcw24/11/2001 DTaP,Tdap,Td Vaccine (1 - Tdap)2001Hepatitis B Vaccine (1 of 3 - 19+ 3- dose series)2001HPV Vaccine (1 - 3-dose SCDM series)2009Cervical Cancer Uhfsirlcj24Mammogram Gfgchsodg19/11/2023Covid-19 Vaccine (1 - season)2025Influenza Vaccine (#1)2025 05/27/2020, 08/29/2019, 04/10/2019, Additional history exists Medical Devices ImplantedTypeAreaManufacturerDevice IdentifierShelf Expiration DateModel / Serial / LotSt Hudson 46 Implanted:Qty: 1 on 04/11/2020LeadHeartST [id number] / / [place] 52 Implanted:Qty: 1 on 04/11/2020LeadHeartST [id number] / / [place] Assurity Mri [id number] Implanted:Qty: 1 on 04/11/2020PacemakerChest WallST [id number] / / [id number]-2272 Assurity [id number] Implanted:04/11/2020 (Quantity not on file)PacemakerST [id number] Assurity MRI / [id number] / Tray Port-A-Cath Ii 7.8fr 2.6mm 1.6mm Polysulfone Titanium Polyurethane 76 - [id number] Implanted:07/22/2018 at [facility] (Quantity not on file)PortRight: Chest WallSSELECT MEDICAL [facility] MEDICAL ASD [id number] / / [id number] Feeding Tube 10f 60cm Implanted:Qty: 1 on 08/17/2018 [facility]: NoseCORPAK UHAVYGSRPS74/[id number] / / [id number] P[place] 20fr Silicone Peg Pull Deluxe Kit Non Safety Sterile - [id number] Implanted:01/31/2019 at [facility] (Quantity not on file)TubeLeft: AbdomenBARD PERIPHERAL IBXUZELX81/28/[id number] / / [id number] Claudio Secur-Migue 20fr Standard J Silicone Jejunostomy Trimmable Distal - [id number] Implanted:04/20/2019 at [facility] (Quantity not on file)TubeLeft: AbdomenHALYARD JTISJV71-20 / / [id number] Claudio Secur-Migue 18fr Standard Silicone Natural Rubber Jejunostomy - [id number] Implanted:07/11/2019 at [facility] (Quantity not on file)TubeLeft: AbdomenHALYARD KGDAPB34-18 / / [id number] Endovive 20fr Xylocaine Silicone Peg Pull Method Ampule Trocar Cannula - [id number] Implanted:10/25/2019 at [facility] (Quantity not on file)TubeN/A: AbdomenBOSTON SCIENTIFIC MDSTBTXFH05/30/[id number] / / [id number] Insurance * Guarantor: Maricarmen Tran TypeRelation to PatientDate of BirthPhone Billing AddressSelf HcoXxil92 [phone] [facility] [address] [place] [address] Advance Directives * Full Code (Latest Code [...] Team MemberRelationshipSpecialtyStart DateEnd Date Sharyn Bradford MD [address] [place] [phone] [facility] - General10/18/13
--- OUTSIDE RECORDS SUMMARY | 2025-04-24 10:25 | XMS_ITS | Clinical Summary ---
Author Organization [facility] Address [address], [address] [place] [address] Care Team Providers Care Biomedical Equipment Specialist Name Role Phone Sharyn Bradford MD Primary Care Provider [phone] Allergies Active AllergyReactionsCriticalityNoted DateCommentsHydromorphone HclItching 10/29/2023 Medications MedicationSigDispense QuantityRefillsLast FilledStart DateEnd DateStatus ARIPiprazole (ABILIFY) 30 MG tablet Take 1 tablet by mouth dailyActive mirtazapine (REMERON PHOENIX-TAB) 15 MG disintegrating tablet Take 1 tablet by mouth nightly 1.5 tab at bedtimeActive benztropine (COGENTIN) 1 MG tablet Take 1 tablet by mouth 2 times dailyActive venlafaxine (EFFEXOR XR) 150 MG extended release capsule Take 1 capsule by mouth dailyActive OLANZapine (ZYPREXA) 5 MG tablet Take 1 tablet by mouth daily as needed (take if having hallucinations)Active NONFORMULARY Inject 234 mg as directed every 30 days Invega Sustena 234mg/1.5mlActive apixaban starter pack (ELIQUIS DVT/PE STARTER PACK) 5 MG TBPK tablet Take 1 tablet by mouth See Admin Instructions 74 tablet 10/31/2023ctive Active Problems ProblemNoted DateDiagnosed DatePulmonary gjcixmnj19/11/2024cute pulmonary syjyjxsj27/09/2024Sick sinus vpabusoq79/09/2024History of Chiari malformation 10/29/2023Essential qhorhthdzdrr28/09/2024ardiac /09/2024sychiatric efmlsnbe27/09/2024 Family History Medical HistoryRelationNameCommentsAmyotrophic lateral sclerosisFatherBipolar DisorderFatherHeart AttackFatherEsophageal CancerMaternal GrandfatherDiabetes Maternal GrandmotherHeart FailureMaternal GrandmotherDiabetesMotherGlaucoma Paternal GrandmotherRelationNameStatusCommentsFatherMaternal GrandfatherMaternal GrandmotherMotherPaternal Grandmother Social History Tobacco UseTypesPacks/DayYears UsedDateSmoking Tobacco: NeverSmokeless Tobacco: Never Tobacco Cessation:Counseling Given: No Alcohol UseStandard Drinks/WeekCommentsNever0 (1 standard drink = 0.6 oz pure alcohol)[facility] UtilitiesAnswerDate RecordedIn the past 12 months has the [employer], gas, oil, or water [employer] threatened to shut off services in your home?No 10/29/2023Humiliation, Afraid, Rape, and Kick questionnaireAnswerDate Recorded Within the last year, have you been afraid of your partner or ex-partner?No 10/29/2023Within the last year, have you been humiliated or emotionally abused in other ways by your partner or ex-partner?No10/29/2023Within the last year, have you been kicked, hit, slapped, or otherwise physically hurt by your partner or ex-partner?No10/29/2023Within the last year, have you been raped or forced to have any kind of sexual activity by your partner or ex-partner?No10/29/2023 Social Connection and Isolation PanelAnswerDate RecordedIn a typical week, how many times do you talk on the phone with family, friends, or neighbors?More than three times a week10/29/2023How often do you get together with friends or relatives?More than three times a week10/29/2023How often do you attend scientologist or judaism services?More than 4 times per year10/29/2023o you belong to any clubs or organizations such as scientologist groups, unions, fraternal or athletic maurizio ups, or school groups?Yes10/29/2023How often do you attend meetings of the clubs or organizations you belong to?More than 4 times per year10/29/2023re you , , , , never , or living with a partner? Xcwlsnst77/09/2024UDIT-CAnswerDate RecordedFrequency of Alcohol ConsumptionNot on file10/29/2023Q2: How many drinks containing alcohol do you have on a typical day when you are drinking?Patient does not drink10/29/2023Q3: How often do you have six or more drinks on one occasion?Never10/29/2023Overall Financial Resource Strain (CARDIA)AnswerDate RecordedHow hard is it for you to pay for the very basics like food, housing, medical care, and heating?Not hard at all 10/29/2023HQ-2AnswerDate RecordedPatient Health Questionnaire-2 Score0 10/29/2023[facility] - Occupational Stress QuestionnaireAnswerDate RecordedDo you feel stress - tense, restless, nervous, or anxious, or unable to sleep at night because yourmind is troubled all the time - these days?Not at all10/29/2023Exercise Vital SignAnswerDate RecordedOn average, how many days per week do you engage in moderate to strenuous exercise (like a brisk walk)?0 days10/29/2023On average, how many minutes do you engage in exercise at this level?0 min10/29/2023Hunger Vital SignAnswerDate Recorded Within the past 12 months, you worried that your food would run out before you got the money to buymore.Never true10/29/2023Within the past 12 months, the food you bought just didn't last and you didn't have money to get more.Never true 10/29/2023RAPARE - TransportationAnswerDate RecordedIn the past 12 months, has lack of transportation kept you from medical appointments or from getting medications?No10/29/2023In the past 12 months, has lack of transportation kept you from meetings, work, or from getting things needed for daily living?No 10/29/2023Housing Stability Vital SignAnswerDate RecordedIn the last 12 months, was there a time when you were not able to pay the mortgage or rent on time?Yes 10/29/2023In the last 12 months, how many places have you lived?105/09/2024In the last 12 months, was there a time when you did not have a steady place to sleep or slept in ashelter (including now)?No10/29/2023Food InsecurityAnswerDate RecordedWithin the past 12 months, you worried that your food would run out before you got the money to buymore.Within the past 12 months, the food you bought just didn't last and you didn't have money to get more.1 10/29/2023Interpersonal Safety Domain Source: IP Abuse ScreeningAnswerDate RecordedRead-Only, Retired: Physical PqvgnJudvzh85/09/2024ead-Only, Retired: Verbal HhokpCxlxah44/09/2024ead-Only, Retired: Emotional ikbjrSdjkoz05/09/2024 Read-Only, Retired: Financial FxprwRquxqt93/09/2024ead-Only, Retired: Sexual rimzhLdbpse77/09/2024EducationAnswerDate RecordedWhat is the highest level of school you have completed or the highest degree you have received?Some college, no uwsjvr8810/29/2023CommentsNoSex and Gender InformationValueDate RecordedSex Assigned at BirthNot on fileLegal XhvQriogy82/10/2013 3:23 PM EST Gender IdentityNot on fileSexual OrientationNot on file Last Filed Vital Signs Vital SignReadingTime TakenCommentsBlood Gyoufglr597/8810/31/2023 12:13 PM EDT Dzzra17362/11/2024 12:13 PM AJFMbuaaqzmzjz74.4 ??C (97.5 ??F)10/31/2023 12:13 PM EDTRespiratory Azat453410/31/2023 12:13 PM EDTOxygen Fynustoknj33%10/31/2023 12:13 PM EDTInhaled Oxygen Concentration--Jfkgvi047 kg (255 lb 11.7 oz)2023 6:00 AM FAMXrmctt721.6 cm (5' 6 )10/29/2023 10:50 AM EDTBody Mass Index41.28 10/29/2023 10:50 AM EDT Plan of Treatment Health MaintenanceDue DateLast DoneCommentsDepression Typecq0910/30/1994Varicella vaccine (1 of 2 - 13+ 2-dose series)10/31/1995HIV cqecbc7710/30/1997Hepatitis C jkdbkb0010/30/2000DTaP/Tdap/Td vaccine (1 - Tdap)2001Hepatitis B vaccine (1 of 3 - 19+ 3-dose series)2001Pap smear10/31/2003Cervical cancer screen 2012HPV (without or with Pap)2012reast cancer wowqzk4310/30/2022 Jdtubl7410/30/2022nnual Wellness Visit (Medicare Advantage)06/22/2024Flu vaccine (#1)/11/2019, 04/10/2019COVID-19 Vaccine ( season) 2025HPV vaccine (No Doses Required)CompletedHepatitis A vaccineAged OutNo longer eligible based on patient's age to complete this topicHib vaccineAged Out No longer eligible based on patient's age to complete this topicMeningococcal (ACWY) vaccineAged OutNo longer eligible based on patient's age to complete this topicMeningococcal B vaccineAged OutNo longer eligible based on patient's age to complete this topicPneumococcal 0-49 years VaccineAged OutNo longer eligible based on patient's age to complete this topicPolio vaccineAged OutNo longer eligible based on patient's age to complete this topic Insurance [address] [place] [address] Advance Directives * Full Code (Latest Code Status on File) Date ActivatedDate InactivatedComments10/29/2023 10:29 AM10/31/2023 5:25 PM Care Teams Team MemberRelationshipSpecialtyStart DateEnd Date Bradford, Sharyn, MD [address] [place] [id number] PCP - GeneralFamily Medicine10/30/23
--- OUTSIDE RECORDS SUMMARY | 2025-04-24 10:25 | XMS_ITS | Clinical Summary ---
Author Organization [facility] Address [address] [place] [address] Phone Care Team Providers Care Conductor Symphonic Orchestra Name Role Phone Sharyn Bradford MD Primary Care Provider [phone] Allergies Active AllergyReactionsCriticalityNoted DateCommentsHydromorphoneItching,Unknown 03/27/2019 Medications MedicationSigDispense [...] mouth once daily.Active Active Problems ProblemNoted DateDiagnosed TziwJvsxxvq43/18/2023ardiac /18/2023 Complete heart block06/08/2023IIH (idiopathic intracranial hypertension) 06/08/2023Renal mass06/08/2023trial pgvdchzuibd22/18/2023Sinus node dysfunction 06/08/2023Sinus vefjabvsvcg88/18/7507Symkgvcp98/18/4643Fwclyse60/18/2023hiari I nsczzcysqnmd10/07/2019Mild protein-calorie bqfjbspczsky30/27/2019Obesity, Class III, BMI 40-49.9 (morbid obesity)07/22/2018Eosinophilic fjebimhhrfe11/22/2014 Overview (06/08/2023): -Recent diagnosis. -Biopsy proven perpatient. -Was on Flovent then a five day course of prednisone was given (completed) Plan: Continue Flovent. Wcrdmd3510/24/2013 Overview (06/08/2023): Acute, likely 2/2 vaginal bleed, planfor IUD as out-pt. Hgb stable Acute thrombosis of left axillary vein10/20/2013 Encounters DateTypeDepartmentCare CopwQqchqrpicsf74/24/2025 9:35 AM EDT - 03/15/2025 11:59 PM EDTHospital Encounter [address] [phone] Pacemaker; Sick sinus syndrome (Multi) Discharge Disposition: Homefrom Last 3 Months Family History Medical HistoryRelationNameCommentsDiabetesFatherGlaucomaFathercardiac disorder FatherDiabetesMotherRelationNameStatusCommentsFatherMother Social History Tobacco UseTypesPacks/DayYears UsedDateSmoking Tobacco: NeverSmokeless Tobacco: NeverAlcohol UseStandard Drinks/WeekCommentsNot Currently0 (1 standard drink = 0.6 oz pure alcohol)CommentsUnknownSex and Gender InformationValueDate RecordedSex Assigned at BirthNot on fileLegal KojGaypbd08/25/2022 1:37 PM EST Gender IdentityNot on fileSexual OrientationNot on file Last Filed Vital Signs Vital SignReadingTime TakenCommentsBlood Himxuwyo281/72007/22/2022 10:12 AM EST Fkijd9279 10:12 AM ESTTemperature--Respiratory Wayk6024 1:15 PM ESTOxygen Fgiedvjavw597%06/20/2020 6:50 AM ESTInhaled Oxygen Concentration-- Wosnqg468 kg (259 lb)07/22/2022 10:12 AM ZUQNibmry480.6 cm (5' 6 )07/22/2022 10:12 AM ESTBody Mass Index41. 10:12 AM EST Plan of Treatment Health MaintenanceDue DateLast DoneCommentsHIV Puhpbojgc59/11/1983Lipid Panel 1982Medicare Annual Wellness Visit (AWV)1982MMR Vaccines (1 of 1 - Standard series)10/31/1983Hepatitis C Hpwxktvbm35/11/2001Hepatitis A Vaccines (1 of 2 - Risk 2-dose series)2001Hepatitis B Vaccines (1 of 3 - 19+ 3-dose series)2001Cervical Cancer Exeibwnqq54/11/2004HPV/Uabgxy0710/31/2003Pap Smear10/31/2003DTaP/Tdap/Td Vaccines (1 - Tdap)2004HPV Vaccines (1 - 3- dose standard series)2009Diabetes Olzvssosl67, 05/26/2020, 04/09/2020, Additional history cnxuvwFdifnhpuy98/11/2023Influenza Vaccine (#1)512/11/2019, 08/29/2019, 04/10/2019, Additional history existsCOVID-19 [...] NamePriorityDate/TimeAssociated DiagnosisCommentsCARDIAC DEVICE CHECK - REMOTE - TJNTQJFZQLmhtqak91/24/2025 9:41 AM EDT Pacemaker Sick sinus syndrome (Multi) COMPREHENSIVE METABOLIC GSDSSFuhrapf12/30/2020 7:23 AM EST from Last 3 Months or Most Recently Relevant to Health Maintenance Results * CARDIAC DEVICE CHECK - REMOTE - PACEMAKER (03/15/2025 9:41 AM EDT)Anatomical RegionLateralityModalityMonitor/DeviceSpecimen (Source)Anatomical Location / LateralityCollection Method / VolumeCollection TimeReceived Time03/15/2025 2:00 AM EDT Narrative Authorizing ProviderResult TypeResult StatusRiat Still [facility] IMPLANTABLE CARDIAC DEVICE PROCEDURESFinal Result * (ABNORMAL) Comprehensive Metabolic Panel (06/20/2020 7:23 AM EST)Component ValueRef RangeTest MethodAnalysis TimePerformed AtPathologist SignatureGlucose 8774 - 99 mg/dLH[facility] MDQQjklwc978522 - 145 mmol/[facility] LABPotassium3.73.5 - 5.3 mmol/[facility] Wpxtbtfv219(H)98 - 107 mmol/[facility] NLUEgofsfxuatz2253 - 32 mmol/[facility] LABAnion Guc9916 - 20 mmol/[facility] LABUrea Czznupvz121 - 23 mg/dLH[facility] LABCreatinine0.790.50 - 1.05 mg/dLH[facility] LABGLOMERULAR FILTRATION RATE-NON >60>60 mL/min/1.24a3AIQCDXHCA [facility] LABGLOMERULAR FILTRATION RATE->60>60 mL/min/1.21q7XJQXFCHCA FL[facility]IDA [facility] LABComment: CALCULATIONS OF ESTIMATED GFR ARE PERFORMED USING THE MDRD STUDY EQUATION FOR THE IDMS-TRACEABLE CREATININE METHODS. CLIN CHEM 2007;53:766-72 Calcium9.28.6 - 10.3 mg/dLH[facility] LABAlbumin4.03.4 - 5.0 g/dL [facility] LABAlkaline Rlpnnojobna5205 - 110 U/[facility] LABTotal Protein7.16.4 - 8.2 g/dLH[facility] YRXLEB753 - 39 U/[facility] LABTotal Bilirubin0.30.0 - 1.2 mg/dLH[facility] LABALT (SGPT)107 - 45 U/[facility] LABComment: Patients treated with Sulfasalazine may generate falsely decreased results for ALT. Specimen (Source)Anatomical Location / LateralityCollection Method / Volume Collection TimeReceived Time06/20/2020 7:23 AM EST06/20/2020 7:27 AM EST Narrative Authorizing ProviderResult TypeResult StatusEliignacia VILLAVICENCIO BLOOD ORDERABLESFinal ResultPerforming OrganizationAddressCity/State/ZIP CodePhone Number [facility] LAB from Last 3 Months or Most Recently Relevant to Health Maintenance Insurance Care Teams Team MemberRelationshipSpecialtyStart DateEnd Date Sharyn Bradford MD [facility] [place] [address] [facility] - [facility]03/02/20
--- OUTSIDE RECORDS SUMMARY | 2025-04-24 10:25 | XMS_ITS | Clinical Summary ---
Author Organization [facility] Healthcare Address [address] [place] [address] Care Team Providers Care Project Geophysicist Name Role Phone Unavailable Primary Care Provider Unavailabl e Social History Tobacco UseTypesPacks/DayYears UsedDateSmoking Tobacco: Never Assessed CommentsUnknownSex and Gender InformationValueDate RecordedSex Assigned at Not on fileLegal GvaKmhktn71/15/2023 7:23 PM EDTGender IdentityNot on fileSexual OrientationNot on file Last Filed Vital Signs Vital SignReadingTime TakenCommentsBlood Ezwljjxm067/8404 12:00 PM EDT Pulse--Temperature--Respiratory Rate--Oxygen Saturation--Inhaled Oxygen Concentration--Ggtstx141 kg (257 lb)09/22/2022 12:00 PM KAIAbbebg863.4 cm (5' 5.5 )09/22/2022 12:00 PM EDTBody Mass Index42.1204 12:00 PM EDT Plan of Treatment Not on file Insurance
[2025-04-24 10:59] VITALS: BP 145/94; PULSE 89; TEMP 36.6; O2SAT 98
[2025-04-24 11:15] LABS: INR 2.97; Prothrombin Time 28.3 sec (9.0-11.6)
[2025-04-24 11:29] VITALS: BP 127/78; BP 132/80; PULSE 18; O2SAT 92; O2SAT 96
[2025-04-24] MEDS: BUPIVACAINE HCL 0.25% PF 25 MG/10 ML VIAL 8 ML INJ (11:29)
[2025-04-24] MEDS: LIDOCAINE HCL 2% 400 MG/20 ML MDV INJ (11:29)
--- NOTE | 2025-04-24 11:32 | W.PM.PROCNOT ---
Date of procedure: 04/24/25 Pre-op diagnosis: Pain due to cervical spondylosis without myelopathy Post-op diagnosis: same as pre-op Procedure: Procedure: Bilateral C4-5, 5-6 medial branch block Medications: Bupivacaine 0.25% 6cc The patient was seen and examined in the preoperative holding area.? The informed consent was obtained and placed on the chart.? The patient was brought to the medical procedure unit and placed in the prone position.? A timeout was completed verifying correct patient, procedure site, positioning, plan, and special equipment.? Using aseptic technique, the needle was placed at left C4.? Under direct fluoroscopic visualization, a Quincke tip needle was advanced to the midpoint of the waist of the articular pillar at the respective medial branch segment. The above-mentioned injectate was placed in a 1 mL aliquot proceeded by negative aspiration.? The needle was removed.? The procedure was completed at all left C5, 6. The same procedure, at the same levels, was then completed on the right side. Insertion site was covered.? Patient was taken to the postprocedural recovery area and monitored for an appropriate length of time before found suitable for discharge in the accompaniment of a responsible adult. Anesthesia: Local Surgeon: Tete Snell Pathology: none sent Condition: stable Disposition: no change
== END 2025-04-24 11:34 | disposition home or self-care (01) ==
PROVIDERS: PCP Family Medicine; Visit Provider Anesthesiology
DX: M47.812 Spondylosis without myelopathy or radiculopathy, cervical region (principal); M54.2 Cervicalgia; Z79.01 Long term (current) use of anticoagulants
CPT/HCPCS: 36415; 64490; 64491; 84703; 85610; J0665

== ENCOUNTER 2025-05-03 09:25 | Outpatient (OUT) | payer MEDICARE, MEDICAID, SELFPAY ==
--- NOTE | 2025-05-03 09:42 | PM.CN ---
Consult Note: HPI Data of Consult Patient: known to practice within the last 3 years Requesting Physician: Yareli Phillips NP Primary Care Provider: Sharyn Bradford MD Consult Narrative Reason for consult: neck pain Narrative: 44yof who presents for assessment of chronic neck pain. physical therapy was ordered and patient attended first session, but she was told that given her chiari malformation, it was too risky for them to proceed with any further cervical therapy. utilizing zanaflex 2-4mg bid prn with benefit. pain today 5/10 sharp aching in neck increasing with twisting, turning, lifting, ADLs, and sleep. recently underwent bilateral C$-5 C5-6 MBB #1 with >80% improvement in pain and functional ability while anesthetized, preop pain up to 10/10 post op pain 0/10 greater than 2 hours. cc:: CC: Yareli Phillips NP Review of Systems ROS Musculoskeletal Reports: neck pain PFSH PFSH Medical History Hypertension ?I10 - Essential (primary) hypertension (ICD-10) Schizophrenia ?F20.9 - Schizophrenia, unspecified (ICD-10) DVT (deep venous thrombosis) ?I82.409 - Acute embolism and thrombosis of unspecified deep veins of unspecified lower extremity (ICD-10) Obesity ?E66.9 - Obesity, unspecified (ICD-10) Pacemaker ?Z95.0 - Presence of cardiac pacemaker (ICD-10) Sick sinus syndrome due to SA node dysfunction ?I49.5 - Sick sinus syndrome (ICD-10) Gastroparesis ?K31.84 - Gastroparesis (ICD-10) Surgical History S/P reconstruction of ligament of knee ?Z98.890 - Other specified postprocedural states (ICD-10) History of cholecystectomy ?Z90.49 - Acquired absence of other specified parts of digestive tract (ICD-10) Hx of appendectomy ?Z90.49 - Acquired absence of other specified parts of digestive tract (ICD-10) Social History Within the past year, how often did you have a drink containing alcohol: never Score interpretation: A score less than 3 is consistent with normal alcohol consumption. Smoking status: Never smoker Non-prescribed substance use: denies use Highest level of school completed/degree received: high school graduate Are you now , , , , never or living with a partner: living with partner Little interest or pleasure in doing things: not at all Feeling down, depressed, or hopeless: not at all Feel stressed/tense/nervous/anxious/difficulty sleeping: only a little Life stressor details: new baby at age of 42 Do you think of yourself as: straight/heterosexual Gender Identity: female Meds Home Medications and Allergies Home Medications ?Medication ?Instructions ?Recorded ?Confirmed ?Type aripiprazole 30 mg tablet 30 mg PO DAILY 10/26/23 04/24/25 History benztropine 1 mg tablet 1 mg PO BID 10/26/23 04/24/25 History metoprolol succinate 25 mg 25 mg PO DAILY 10/26/23 04/24/25 History tablet,extended release 24 hr mirtazapine 15 mg tablet 15 mg PO .HS 10/26/23 04/24/25 History olanzapine 5 mg tablet 5 mg PO .qd PRN hallucinations 10/26/23 04/24/25 History paliperidone palmitate 234 mg/1.5 234 mg IM Q30D 10/26/23 04/24/25 History mL intramuscular syringe (Invega Sustenna) venlafaxine 150 mg 150 mg PO DAILY 10/26/23 04/24/25 History capsule,extended release 24 hr warfarin 5 mg tablet 5 mg PO DAILY 03/21/24 04/24/25 History tizanidine 4 mg tablet See Rx Instructions .Route 04/06/25 04/24/25 Rx .COMPLEX PRN muscle spasticity #60 tabs Allergies Allergy/AdvReac Type Severity Reaction Status Date / Time hydromorphone (From Dilaudid) Allergy Mild itching Verified 04/24/25 11:09 Exam Constitutional Documenting provider has reviewed patient's vital signs: yes Common normals: no apparent distress, oriented x3, alert and well nourished General appearance: cooperative, disheveled and ill appearing HENOK Common normals: normocephalic, hearing grossly normal bilaterally and moist oral mucous membranes Head and scalp: normocephalic Eye Common normals: PERRL Pupil: PERRL Neck & C-Spine General: normal visual inspection Cervical spine: cervical ROM abnormal, pain with cervical ROM and cervical spine tenderness Other: sensation intact BUE strength 5/5 in BUE Chest Common normals: inspection of chest normal Respiratory Common normals: normal respiratory effort, no retractions and no use of accessory muscles Neuro Common normals: oriented x3 Sensorium/orientation: alert Psych Common normals: mental status grossly normal, thought process normal, cooperative, affect normal, speech normal and activity/motor behavior normal Speech: normal speech Thought process: normal thought process Results Additional Findings Additional findings: If on a controlled substance or opioids, I have checked an [place]AR[place] report on this patient and there are no aberrancies noted in the prescribing history.??If on a controlled substance or opioid a drug screen was completed and reviewed within the last year, and if there has not been a drug screen completed we ordered one today to monitor higher risk, state monitored pain medication use. As part of providing excellent, safe, comprehensive care, the following was completed at our patient's visit: 1. A medication reconciliation and review to ensure accurate knowledge of current/active medications, including asking our patients to inform us about any bqrq-inh-vzspyly medications or herbal remedies/nutritional supplements/alternative remedies. 2. A review to specifically ensure our patients have had annual screening for screening for depression, screening for tobacco use, and screening for unhealthy alcohol use. For concerning screenings had a discussion with the patient, provided patient education, and recommended follow-up with primary care provider when appropriate. If patient noted with a risk of falling, they received education on strength, gait, and balance training to prevent future risk of falling. Portions of this note may have been carried over from the previous visit and updated as appropriate. Please note this office utilizes paper charting in addition to the electronic medical record. A list of current medications, vitals, and PMH is available there as the clinical staff outside of myself do not have access to [employer] charting during the clinic day operations. As part of providing quality comprehensive care the current medications, vitals, and PMH were reviewed in the paper chart. Assessment and Plan Assessment and Plan (1) Cervical spondylosis: Assessment and Plan: 04-10-25 bilateral C3-4 C4-5 mbb #1 less than 80% improvement (2) Chiari malformation type I: Plan The patient has had over 3 months of moderate to severe neck pain with functional impairment and inadequate response to conservative care including NSAIDS (unless there are contraindication such as concurrent blood thinners), multiple oral or topical pain medications, and home exercise program/physical therapy.? I have reviewed the imaging of the cervical spine and no red flags were identified.? The imaging reveals radiographic findings consistent with cervical spondylosis, ddd, and cervical stenosis The Oswestry Disability Index was completed, and the patient scored a 30%.? bilateral C4-5 c5-6 facet medial branch block #2 under fluoroscopy in consideration of RFA for facet mediated pain continue tizanidine 2-4mg BID PRN pain/spasms/headaches continue HEP as tolerated, PT discharged patient as noted above shes not a candidate for PT due to chiari malformation continue tylenol prn, cannot take NSAIDs on coumadin f/u after each injection ?
== END 2025-05-03 09:26 | disposition home or self-care (01) ==
LOC: PM 09:25
PROVIDERS: PCP Family Medicine; Visit Provider Nurse Practitioner
DX: M47.812 Spondylosis without myelopathy or radiculopathy, cervical region (principal); G93.5 Compression of brain
CPT/HCPCS: G0463

== ENCOUNTER 2025-05-11 08:54 | Outpatient (RCR) | payer MEDICARE, MEDICAID, SELFPAY ==
--- NOTE | 2025-05-11 10:02 | PC.NURSE ---
0915: Pt. arrived to department for routine port flush. Pleasant and talkative. Port to upper right chest accessed using sterile technique per protocol. No blood return noted; i ml of saline infused without difficulty. Multiple maneuvers utilized to prompt a blood return (cough, arm raised, head turned, lean forward, recline, etc.) without success. Port re-accessed using sterile technique. No blood return noted. Pt. in reclining position for approx. 20 minutes with port accessed and minimal amount of hep flush dwelling. Blood return noted; flushed per protocol with saline and heparin. De-accessed and bandaid applied. Discharged to private vehicle. Denies needs; no distress noted.
== END 2025-05-21 23:59 | disposition home or self-care (01) ==
LOC: HEMC 08:54
PROVIDERS: PCP Family Medicine; Visit Provider Internal Medicine Hematology & Oncology
DX: I26.99 Other pulmonary embolism without acute cor pulmonale (principal); D68.69 Other thrombophilia; D64.9 Anemia, unspecified; K90.9 Intestinal malabsorption, unspecified; I82.402 Acute embolism and thrombosis of unspecified deep veins of left lower extremity; D50.9 Iron deficiency anemia, unspecified; D51.9 Vitamin B12 deficiency anemia, unspecified

== ENCOUNTER 2025-05-15 11:13 | Day surgery (SDC) | payer MEDICARE, MEDICAID, SELFPAY ==
--- OUTSIDE RECORDS SUMMARY | 2024-08-30 05:30 | XMS_ITS ---
Author Organization [facility] in [place] Address [address] [place] [address] Care Team Providers Care Tumblers Supervisor Name Role Phone EMY LEMUS Primary Care Provider Unavailabl Emy Chu Unavailable [phone] REASON FOR VISIT MD Encounters Encounter Location Date Provider Diagnosis [facility] [address] [place] [phone] 08/30/2024 Emy Lemus Plan Of Treatment Next Appt Details Provider Name:Emy Lemus , 06/06/2025 09:30:00 AM, [address] [place] [address], [phone], Provider Name:Emy Lemus , 06/06/2025 09:45:00 AM, [address] [place] [address], [phone], Progress Notes * Maricarmen ANDERSONDOB: 3 (44 yo F)Acc No.[id number]:08/30/2024 UNLOCKED PROGRESS NOTE Progress Notes Patient: Deja Maricarmen RODGERS :?Emy Lemus M.D.:1980???Age:43 Y ???Sex:FemaleDate:08/30/2024Phone:[phone]:[address] [place] [id number]:EMY LEMUS Subjective: * Chief Complaints: * 1 . MD. * Medical History: Objective: * Vitals: Assessment: Plan: * Treatment: * * Electronic signature of Emy Lemus MD, [phone] on 05/15/2025 at 11:19 AM ESTSign off status: PendingVisit Status:?ANSPH (Voice) * Provider: Harpreet Lemus M.D. Date: 0 08/30/2024 Generated for Printing/Faxing/eTransmitting on:?05/15/2025 11:19 AM EST
--- OUTSIDE RECORDS SUMMARY | 2024-11-01 05:15 | XMS_ITS ---
Author Organization The [facility] in [place] Address [address] [place] [address] Care Team Providers Care Linoleum Mechanic Name Role Phone EMY LEMUS Primary Care Provider Unavailabl Emy Chu Unavailable [phone] REASON FOR VISIT MD Encounters Encounter Location Date Provider Diagnosis The [facility] On[facility] [address] [place] [phone] 11/01/2024 Emy Lemus Plan Of Treatment Next Appt Details Provider Name:Emy Lemus , 06/06/2025 09:30:00 AM, [address] [place] [address], [phone], Provider Name:Emy Lemus , 06/06/2025 09:45:00 AM, [address] [place] [address], [phone], Progress Notes * Maricarmen ANDERSONDOB: 3 (44 yo F)Acc No.[id number]:11/01/2024 UNLOCKED PROGRESS NOTE Progress Notes Patient: Deja Maricarmen RODGERS :?Emy Lemus M.D.:1980???Age:44 Y ???Sex:FemaleDate:11/01/2024Phone:[phone]:[address] [place] [phone]:EMY LEMUS Subjective: * Chief Complaints: * 1 . MD. * Medical History: Objective: * Vitals: Assessment: Plan: * Treatment: * * Electronic signature of Emy Lemus MD, [id number] on 05/15/2025 at 11:19 AM ESTSign off status: PendingVisit Status:?PEN (Pending) * Provider: Harpreet Lemus M.D. Date: 0 11/01/2024 Generated for Printing/Faxing/eTransmitting on:?05/15/2025 11:19 AM EST
--- OUTSIDE RECORDS SUMMARY | 2025-01-10 05:30 | XMS_ITS ---
Author Organization The [facility] in [place] Address [address] [place] [address] Care Team Providers Care Funeral Home Attendant Name Role Phone EMY LEMUS Primary Care Provider Unavailabl Emy Chu Unavailable [phone] REASON FOR VISIT MD Encounters Encounter Location Date Provider Diagnosis [facility] [address] [place] [phone] 01/10/2025 Emy Lemus Plan Of Treatment Next Appt Details Provider Name:Emy Lemsu , 06/06/2025 09:30:00 AM, [address] [place] [address], [phone], Provider Name:Emy Lemus , 06/06/2025 09:45:00 AM, [address] [place] [address], [phone], Progress Notes * Maricarmen ANDERSONDOB: 3 (44 yo F)Acc No.[id number]:01/10/2025 UNLOCKED PROGRESS NOTE Progress Notes Patient: Deja Maricarmen RODGERS :?Emy Lemus M.D.:1980???Age:44 Y ???Sex:FemaleDate:01/10/2025Phone:[phone]:[address] [place] [phone]:EMY LEMUS Subjective: * Chief Complaints: * 1 . MD. * Medical History: Objective: * Vitals: Assessment: Plan: * Treatment: * * Electronic signature of Emy Lemus MD, [id number] on 05/15/2025 at 11:19 AM ESTSign off status: PendingVisit Status:?PEN (Pending) * Provider: Harpreet Lemus M.D. Date: 0 01/10/2025 Generated for Printing/Faxing/eTransmitting on:?05/15/2025 11:19 AM EST
--- OUTSIDE RECORDS SUMMARY | 2025-01-17 04:00 | XMS_ITS ---
Author Organization The [facility] in [place] Address [address] [place] [address] Care Team Providers Care Acetylene Torch Operator Name Role Phone EMY LEMUS Primary Care Provider Unavailabl Emy Chu Unavailable [phone] REASON FOR VISIT CL.5 Encounters Encounter Location Date Provider Diagnosis [facility] [address] [place] [phone] 01/17/2025 Emy Lemus Plan Of Treatment Next Appt Details Provider Name:Emy Lemus , 06/06/2025 09:30:00 AM, [facility] [place], [phone], Provider Name:Emy Lemus , 06/06/2025 09:45:00 AM, [address] [place] [address], [phone], Progress Notes * Maricarmen ANDERSONDOB: 3 (44 yo F)Acc No.[id number]:01/17/2025 UNLOCKED PROGRESS NOTE Progress Note Patient: Deja Maricarmen RODGERS :?Emy Lemus M.D.:1980???Age:44 Y ???Sex:FemaleDate:01/17/2025Phone:[phone]:[address] [place] [phone]:EMY LEMUS Subjective: * Chief Complaints: * 1 . CL.5. * Medical History: Objective: * Vitals: Assessment: Plan: * Treatment: * * Electronic signature of Emy Lemus MD, [id number] on 05/15/2025 at 11:20 AM ESTSign off status: PendingVisit Status:?PEN (Pending) * Provider: Harpreet Lemus M.D. Date: 0 01/17/2025 Generated for Printing/Faxing/eTransmitting on:?05/15/2025 11:20 AM EST
--- OUTSIDE RECORDS SUMMARY | 2025-02-16 04:00 | XMS_ITS ---
Author Organization The [facility] in [place] Address [address] [place] [address] Care Team Providers Care Valve Repairer Name Role Phone EMY LEMUS Primary Care Provider Unavailabl Emy Chu Unavailable [phone] REASON FOR VISIT CL.5 Encounters Encounter Location Date Provider Diagnosis The [facility] Oncology [address] [place] [address] 02/16/2025 Emy Lemus Plan Of Treatment Next Appt Details Provider Name:Emy Lemus , 06/06/2025 09:30:00 AM, [address] [place] [address], [phone], Provider Name:Emy Lemus , 06/06/2025 09:45:00 AM, [address] [place] [address], [phone], Progress Notes * Maricarmen ANDERSONDOB: 3 (44 yo F)Acc No.[id number]:02/16/2025 UNLOCKED PROGRESS NOTE Progress Note Patient: Deja Maricarmen RODGERS :?Emy Lemus M.D.:1980???Age:44 Y ???Sex:FemaleDate:02/16/2025Phone:[phone]:[address] [place] [phone]:EMY LEMUS Subjective: * Chief Complaints: * 1 . CL.5. * Medical History: Objective: * Vitals: Assessment: Plan: * Treatment: * * Electronic signature of Emy Lemus MD, [id number] on 05/15/2025 at 11:19 AM ESTSign off status: PendingVisit Status:?PEN (Pending) * Provider: Harpreet Lemus M.D. Date: 0 02/16/2025 Generated for Printing/Faxing/eTransmitting on:?05/15/2025 11:19 AM EST
--- OUTSIDE RECORDS SUMMARY | 2025-03-16 04:00 | XMS_ITS ---
Author Organization The [facility] in [place] Address [address] [place] [address] Care Team Providers Care Government Relations Manager Name Role Phone EMY LEMUS Primary Care Provider Unavailabl Emy Chu Unavailable [phone] REASON FOR VISIT CL.5 Encounters Encounter Location Date Provider Diagnosis The [facility] Oncology [address] [place] [phone] 03/16/2025 Emy Lemus Plan Of Treatment Next Appt Details Provider Name:Emy Lemus , 06/06/2025 09:30:00 AM, [facility] [place] [place], [address], Provider Name:Emy Lemus , 06/06/2025 09:45:00 AM, [address] [place] [address], [phone], Progress Notes * Maricarmen ANDERSONDOB: 3 (44 yo F)Acc No.[id number]:03/16/2025 UNLOCKED PROGRESS NOTE Progress Note Patient: Deja Maricarmen RODGERS :?Emy Lemus M.D.:1980???Age:44 Y ???Sex:FemaleDate:03/16/2025Phone:[phone]:[address] [place] [phone]:EMY LEMUS Subjective: * Chief Complaints: * 1 . CL.5. * Medical History: Objective: * Vitals: Assessment: Plan: * Treatment: * * Electronic signature of Emy Lemus MD, [id number] on 05/15/2025 at 11:18 AM ESTSign off status: PendingVisit Status:?PEN (Pending) * Provider: Harpreet Lemus M.D. Date: 0 03/16/2025 Generated for Printing/Faxing/eTransmitting on:?05/15/2025 11:18 AM EST
--- OUTSIDE RECORDS SUMMARY | 2025-04-11 06:15 | XMS_ITS ---
Author Organization The [facility] in [place] Address [address] [place] [address] Care Team Providers Care Tree Worker Name Role Phone EMY LEMUS Primary Care Provider Unavailabl Emy Chu Unavailable [phone] REASON FOR VISIT MD Encounters Encounter Location Date Provider Diagnosis [facility] Oncology [address] [place] [phone] 04/11/2025 Emy Lemus Plan Of Treatment Next Appt Details Provider Name:Emy Lemus , 06/06/2025 09:30:00 AM, [address] [place] [address], [phone], Provider Name:Emy Lemus , 06/06/2025 09:45:00 AM, [address] [place] [address], [phone], Progress Notes * Maricarmen ANDERSONDOB: 3 (44 yo F)Acc No.[id number]:04/11/2025 UNLOCKED PROGRESS NOTE Progress Notes Patient: Deja Maricarmen RODGERS :?Emy Lemus M.D.:1980???Age:44 Y ???Sex:FemaleDate:04/11/2025Phone:[phone]:[address] [place] [phone]:EMY LEMUS Subjective: * Chief Complaints: * 1 . MD. * Medical History: Objective: * Vitals: Assessment: Plan: * Treatment: * * Electronic signature of Emy Lemus MD, [id number] on 05/15/2025 at 11:20 AM ESTSign off status: PendingVisit Status:?PEN (Pending) * Provider: Harpreet Lemus M.D. Date: Generated for Printing/Faxing/eTransmitting on:?05/15/2025 11:20 AM EST
--- OUTSIDE RECORDS SUMMARY | 2025-04-11 06:30 | XMS_ITS ---
Author Organization The [facility] in [place] Address [address] [place] [address] Care Team Providers Care Motion Picture Critic Name Role Phone EMY LEMUS Primary Care Provider Unavailabl EMY Kingsley Unavailable [phone] REASON FOR VISIT CL.5 Encounters Encounter Location Date Provider Diagnosis [facility] Oncology [address] [place] [phone] 04/11/2025 EMY LEMUS Plan Of Treatment Next Appt Details Provider Name:Emy Lemus , 06/06/2025 09:30:00 AM, [address] [place] [address], [phone], Provider Name:Emy Lemus , 06/06/2025 09:45:00 AM, [address] [place] [address], [phone], Progress Notes * Mariacrmen ANDERSONDOB: 3 (44 yo F)Acc No.[id number]:04/11/2025 UNLOCKED PROGRESS NOTE Progress Note Patient: Deja Maricarmen RODGERS :?EMY LEMUS M.D.:1980???Age:44 Y ???Sex:FemaleDate:04/11/2025Phone:[phone]:[address] [place] [phone]:EMY LEMUS Subjective: * Chief Complaints: * 1 . CL.5. * Medical History: Objective: * Vitals: Assessment: Plan: * Treatment: * * Electronic signature of EMY LEMUS MD on 05/15/2025 at 11:18 AM ESTSign off status: PendingVisit Status:?PEN (Pending) * Provider: Harpreet LEMUS M.D. Date: Generated for Printing/Faxing/eTransmitting on:?05/15/2025 11:18 AM EST
--- OUTSIDE RECORDS SUMMARY | 2025-04-13 04:00 | XMS_ITS ---
Author Organization The [facility] in [place] Address [address] [place] [address] Care Team Providers Care Community Living Specialist Name Role Phone EMY LEMUS Primary Care Provider Unavailabl EMY Kingsley Unavailable [phone] REASON FOR VISIT MD Encounters Encounter Location Date Provider Diagnosis [facility] On[facility] [address] [place] [phone] 04/13/2025 EMY LEMUS Plan Of Treatment Next Appt Details Provider Name:Emy Lemus , 06/06/2025 09:30:00 AM, [address] [place] [address], [phone], Provider Name:Emy Lemus , 06/06/2025 09:45:00 AM, [address] [place] [address], [phone], Progress Notes * Maricarmen ANDERSONDOB: 3 (44 yo F)Acc No.[id number]:04/13/2025 UNLOCKED PROGRESS NOTE Progress Notes Patient: Deja Maricarmen RODGERS :?EMY LEMUS M.D.:1980???Age:44 Y ???Sex:FemaleDate:04/13/2025Phone:[phone]:[address] [place] [phone]:EMY LEMUS Subjective: * Chief Complaints: * 1 . MD. * Medical History: Objective: * Vitals: Assessment: Plan: * Treatment: * * Electronic signature of EMY LEMUS MD on 05/15/2025 at 11:19 AM ESTSign off status: PendingVisit Status:?CANC (Cancelled) * Provider: Harpreet LEMUS M.D. Date: Generated for Printing/Faxing/eTransmitting on:?05/15/2025 11:19 AM EST
--- OUTSIDE RECORDS SUMMARY | 2025-05-11 04:00 | XMS_ITS ---
Author Organization [facility] in [place] Address [address] [place] [address] Care Team Providers Care Detective Automobile Section Name Role Phone EMY LEMUS Primary Care Provider Unavailabl EMY Kingsley Unavailable [phone] REASON FOR VISIT CL.5 Encounters Encounter Location Date Provider Diagnosis [facility] [address] [place] [phone] 05/11/2025 EMY LEMUS Plan Of Treatment Next Appt Details Provider Name:Emy Lemus , 06/06/2025 09:30:00 AM, [address] [place] [address], [phone], Provider Name:Emy Lemus , 06/06/2025 09:45:00 AM, [address] [place] [address], [phone], Progress Notes * Maricarmen ANDERSONDOB: 3 (44 yo F)Acc No.[id number]:05/11/2025 UNLOCKED PROGRESS NOTE Progress Note Patient: Deja Maricarmen RODGERS :?EMY LEMUS M.D.:1980???Age:44 Y ???Sex:FemaleDate:05/11/2025Phone:[phone]:[address] [place] [phone]:EMY LEMUS Subjective: * Chief Complaints: * 1 . CL.5. * Medical History: Objective: * Vitals: Assessment: Plan: * Treatment: * * Electronic signature of EMY LEMUS MD on 05/15/2025 at 11:19 AM ESTSign off status: PendingVisit Status:?PEN (Pending) * Provider: Harpreet LEMUS M.D. Date: 07/11/2024 Generated for Printing/Faxing/eTransmitting on:?05/15/2025 11:19 AM EST
--- OUTSIDE RECORDS SUMMARY | 2025-05-15 11:19 | XMS_ITS | Clinical Summary ---
Author Organization [facility] Address [address] [place] [address] Care Team Providers Care Enrobing Machine Operator Name Role Phone Unavailable Primary Care Provider Unavailabl e Social History Tobacco UseTypesPacks/DayYears UsedDateSmoking Tobacco: Never Assessed CommentsUnknownSex and Gender InformationValueDate RecordedSex Assigned at Not on fileLegal XhpSpqxvs22/15/2023 7:23 PM EDTGender IdentityNot on fileSexual OrientationNot on file Last Filed Vital Signs Vital SignReadingTime TakenCommentsBlood Iogvkkfj667/8404 12:00 PM EDT Pulse--Temperature--Respiratory Rate--Oxygen Saturation--Inhaled Oxygen Concentration--Tvcbtx677 kg (257 lb)09/22/2022 12:00 PM ZRMLokhop703.4 cm (5' 5.5 )09/22/2022 12:00 PM EDTBody Mass Index42.1204 12:00 PM EDT Plan of Treatment Not on file Insurance
--- OUTSIDE RECORDS SUMMARY | 2025-05-15 11:20 | XMS_ITS | Clinical Summary ---
Author Organization [facility] Address [address] 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 Assembler Name Role Phone Sharyn Bradford MD Primary Care Provider [phone] Allergies Active AllergyReactionsCriticalityNoted DateCommentsHydromorphoneItching,Unknown 03/27/2019 Medications MedicationSigDispense [...] mouth once daily.Active Active Problems ProblemNoted DateDiagnosed SkepEwnbwyr82/18/2023ardiac nwnugrjdw39/18/2023 Complete heart block06/08/2023IIH (idiopathic intracranial hypertension) 06/08/2023Renal mass06/08/2023trial uwmkghisdvl76/18/2023Sinus node dysfunction 06/08/2023Sinus usqpyjxmesn49/18/1121Ndaknqdk69/18/7919Cmbbsyf32/18/2023hiari I syixvkzgpbew19/07/2019Mild protein-calorie jpzpmblqixwm32/27/2019Obesity, Class III, BMI 40-49.9 (morbid obesity)07/22/2018Eosinophilic /22/2014 Overview (06/08/2023): -Recent diagnosis. -Biopsy proven perpatient. -Was on Flovent then a five day course of prednisone was given (completed) Plan: Continue Flovent. Wsyubc4810/24/2013 Overview (06/08/2023): Acute, likely 2/2 vaginal bleed, planfor IUD as out-pt. Hgb stable Acute thrombosis of left axillary vein10/20/2013 Encounters DateTypeDepartmentCare YgfyYgjmpmlyagk63/24/2025 9:35 AM EDT - 03/15/2025 11:59 PM EDTHospital Encounter [address] [address] Pacemaker; Sick sinus syndrome (Multi) Discharge Disposition: Homefrom Last 3 Months Family History Medical HistoryRelationNameCommentsDiabetesFatherGlaucomaFathercardiac disorder FatherDiabetesMotherRelationNameStatusCommentsFatherMother Social History Tobacco UseTypesPacks/DayYears UsedDateSmoking Tobacco: NeverSmokeless Tobacco: NeverAlcohol UseStandard Drinks/WeekCommentsNot Currently0 (1 standard drink = 0.6 oz pure alcohol)CommentsUnknownSex and Gender InformationValueDate RecordedSex Assigned at BirthNot on fileLegal GoqLonqro99/25/2022 1:37 PM EST Gender IdentityNot on fileSexual OrientationNot on file Last Filed Vital Signs Vital SignReadingTime TakenCommentsBlood Nwsuoxcv617/72007/22/2022 10:12 AM EST Vpyuy9215 10:12 AM ESTTemperature--Respiratory Wtgc8828 1:15 PM ESTOxygen Dylggejnob758%06/20/2020 6:50 AM ESTInhaled Oxygen Concentration-- Yfhblh932 kg (259 lb)07/22/2022 10:12 AM ZHDWsidqb589.6 cm (5' 6 )07/22/2022 10:12 AM ESTBody Mass Index41. 10:12 AM EST Plan of Treatment Health MaintenanceDue DateLast DoneCommentsHIV Nnvnnecke96/11/1983Lipid Panel 1982Medicare Annual Wellness Visit (AWV)1982MMR Vaccines (1 of 1 - Standard series)10/31/1983Hepatitis C Pcibwoghn65/11/2001Hepatitis A Vaccines (1 of 2 - Risk 2-dose series)2001Hepatitis B Vaccines (1 of 3 - 19+ 3-dose series)2001Cervical Cancer Ndqnmpawl29/11/2004HPV/Vxemik0710/31/2003Pap Smear10/31/2003DTaP/Tdap/Td Vaccines (1 - Tdap)2004HPV Vaccines (1 - 3- dose standard series)2009Diabetes Wzbcbymwk08, 05/26/2020, 04/09/2020, Additional history xfmeolMvglryjdh46/11/2023Influenza Vaccine (#1)512/11/2019, 08/29/2019, 04/10/2019, Additional history existsCOVID-19 [...] NamePriorityDate/TimeAssociated DiagnosisCommentsCARDIAC DEVICE CHECK - REMOTE - YBHGIPKXILhktqeg19/24/2025 9:41 AM EDT Pacemaker Sick sinus syndrome (Multi) COMPREHENSIVE METABOLIC XXUCZBjzkneg80/30/2020 7:23 AM EST from Last 3 Months or Most Recently Relevant to Health Maintenance Results * CARDIAC DEVICE CHECK - REMOTE - PACEMAKER (03/15/2025 9:41 AM EDT)Anatomical RegionLateralityModalityMonitor/DeviceSpecimen (Source)Anatomical Location / LateralityCollection Method / VolumeCollection TimeReceived Time03/15/2025 2:00 AM EDT Narrative Authorizing ProviderResult TypeResult StatusRita Still [facility] IMPLANTABLE CARDIAC DEVICE PROCEDURESFinal Result * (ABNORMAL) Comprehensive Metabolic Panel (06/20/2020 7:23 AM EST)Component ValueRef RangeTest MethodAnalysis TimePerformed AtPathologist SignatureGlucose 8774 - 99 mg/dLNORTHWEST FLORIDA COMM[facility]ITY [facility] CDDYtchyr062942 - 145 mmol/[facility] LABPotassium3.73.5 - 5.3 mmol/[facility] Ycibabqo794(H)98 - 107 mmol/[facility] GEBBbckvxlfqto7853 - 32 mmol/[facility] LABAnion Vec1952 - 20 mmol/[facility] LABUrea Zqsifxfd127 - 23 mg/dLNORTHWEST FLORIDA COMMUNITY [facility] LABCreatinine0.790.50 - 1.05 mg/dLNORTHWEST FLORIDA COMMUNITY HOSPITAL LABGLOMERULAR FILTRATION RATE-NON >60>60 mL/min/1.74b8MPSZDENORTHWEST FLORIDA COMMUNITY HOSPITAL LABGLOMERULAR FILTRATION RATE->60>60 mL/min/1.79g7SDTQNONORTHWEST FLORIDA COMMUNITY HOSPITAL LABComment: CALCULATIONS OF ESTIMATED GFR ARE PERFORMED USING THE MDRD STUDY EQUATION FOR THE IDMS-TRACEABLE CREATININE METHODS. CLIN CHEM 2007;53:766-72 Calcium9.28.6 - 10.3 mg/dLNORTHWEST FLORIDA COMMUNITY [facility] LABAlbumin4.03.4 - 5.0 g/dL [facility] LABAlkaline Nbmulumgoro8369 - 110 U/[facility] LABTotal Protein7.16.4 - 8.2 g/dLNORTHWEST FLORIDA COMMUNITY [facility]OSP[facility] KVCGGN781 - 39 U/[facility] LABTotal Bilirubin0.30.0 - 1.2 mg/dLNORTHWEST FLORIDA COMM[facility] LABALT (SGPT)107 - 45 U/[facility] LABComment: Patients treated with Sulfasalazine may generate falsely decreased results for ALT. Specimen (Source)Anatomical Location / LateralityCollection Method / Volume Collection TimeReceived Time06/20/2020 7:23 AM EST06/20/2020 7:27 AM EST Narrative Authorizing ProviderResult TypeResult StatusEliignacia VILLAVICENCIO BLOOD ORDERABLESFinal ResultPerforming OrganizationAddressCity/State/ZIP CodePhone Number [facility] LAB from Last 3 Months or Most Recently Relevant to Health Maintenance Insurance Care Teams Team MemberRelationshipSpecialtyStart DateEnd Date Sharyn Bradford MD [facility] [place] [address] [facility]03/02/20
--- OUTSIDE RECORDS SUMMARY | 2025-05-15 11:20 | XMS_ITS | Patient Health Record ---
Author Organization [facility] in [place] Address [address] [place] [address] Care Team Providers Care Magnetic Prospecting Supervisor Name Role Phone EMY LEMUS Primary Care Provider Unavailabl e Emy Lemus Unavailable [phone] EMY LEMUS Unavailable [phone] Results Component Value Reference Range Notes FERRITIN (Not yet reviewed b y provider) Interpretation: Performing Lab: Notes/Report: [facility] , Ferritin 78.0 8.0-252.0 ng/mL Performing Lab:see noteML - [facility] LBPROF CHEM 8 (BAS METB) (Not yet reviewed by provider) Interpretation: Performing Lab: Notes/Report: [facility] ,Hfngvi262736-535 mmol/LPotassium3.93.5-5.1 mmol/BElhakehe58458-800 mmol/LCarbon Prqwwan52.921.0-32.0 mmol/LAnion Gap10.0Nwecjxr79907-404 mg/dLBlood Urea Nitrogen7.07.0-18.0 mg/dLCreatinine1.160.55-1.02 mg/dLEstimated GFR ( Mariela>60>=60 mL/min/1.73m 2Estimated GFR (Non- Ame51>=60 mL/min/1.73m 2 BUN Creatinine Ratio6.9Wbofriw4.18.5-10.1 mg/dLPerforming Lab:see noteML - [facility] LBVITAMIN D 25 [place] (Not yet reviewed by provider) Interpretation: Performing Lab: Notes/Report: [facility] ,Vitamin D26.9 30-100 ng/mL Vit D sufficient 20-<30 ng/mL Vit D insufficient <20 ng/mL Vit D deficient >100 ng/mL Potential Toxicity Performing Lab:see noteML - [facility] LBVitamin B12 (Not yet reviewed by provider) Interpretation: Performing Lab: Notes/Report: [facility] ,Vitamin [id number] pg/mL [address], [place] [id number] Performed at: [facility] Cab Driver: Prabhakar Warren PhD, Phone: [phone] Performing Lab:see noteLC - [facility] LBCBC AUTO DIFF (Not yet reviewed by provider) Interpretation: Performing Lab: Notes/Report: [facility] ,White Blood Count4.54.0-11.0 10 3/uLRed Blood Count4.054.20-5.40 10 6/uL Tduiyiythh33.112.0-16.0 g/pZCojmockyni60.236.0-48.0 %Mean Corpuscular Volume 101.781.0-99.0 fLMean Corpuscular Giwrswfuvp85.826.7-34.0 pgMean Corpuscular HGB Conc34.229.9-35.2 g/dLRed Cell Distribution Width12.411.0-15.0 %Platelet Count 610003-043 10 3/uLMean Platelet Volume9.69.5-13.5 fLNeutrophils Percent Auto59.9 43.0-75.0 %Lymphocytes Percent Auto30.120.5-60.0 %Monocytes Percent Auto7.11.7- 12.0 %Eosinophils Percent Auto2.00.9-7.0 %Basophils Percent Auto0.70.2-2.0 % Immature Granulocytes Pct Auto0.20.0-0.5 %Neutrophils Absolute Auto2.71.4-6.5 10 3/uLLymphocytes Absolute Auto1.41.2-3.8 10 3/uLMonocytes Absolute Auto0.30.3-0.8 10 3/uLEosinophils Absolute Auto0.10.0-0.7 10 3/uLBasophils Absolute Auto0.00.0- 0.1 10 3/uLImmature Granulocytes Abs Auto0.010.00-0.03 10 3/uLPerforming Lab:see noteML - [facility] LBIRON AND TIBC (Not yet reviewed by provider) Interpretation: Performing Lab: Notes/Report: [facility] ,Iron59.050.0-170.0 ug/dLTotal Iron Binding Wqykbydt353.0250.0-450.0 ug/dL Percent Iron Amylhgrjtb11.3Performing Lab:see noteML - [facility] LB PROF CHEM 8 (BAS METB) (Not yet reviewed by provider) Interpretation: Performing Lab: Notes/Report: [facility] ,Vkxtbs819438-494 mmol/LPotassium3.33.5-5.1 mmol/JVinvkdbe85299-204 mmol/LCarbon Abtjvbs28.621.0-32.0 mmol/LAnion Gap7.9Lilwrgt70532-788 mg/dLBlood Urea Nitrogen 8.07.0-18.0 mg/dLCreatinine1.060.55-1.02 mg/dLEstimated GFR ( Mariela>60 >=60 mL/min/1.73m 2Estimated GFR (Non- Ame57>=60 mL/min/1.73m 2BUN Creatinine Ratio7.9Vbtrbph1.88.5-10.1 mg/dLPerforming Lab:see noteML - [facility] LBVitamin B12 (Not yet reviewed by provider) Interpretation: Performing Lab: Notes/Report: [facility] ,Vitamin [id number] pg/mL Cab Driver: Prabhakar Warren PhD, Phone: [phone] [address], [place] [phone] Performed at: [facility] - [facility] Performing Lab:see noteLC - [facility] LBCBC AUTO DIFF (Not yet reviewed by provider) Interpretation: Performing Lab: Notes/Report: [facility] ,White Blood Count4.64.0-11.0 10 3/uLRed Blood Count4.244.20-5.40 10 6/uL Zblwoxhvqv75.112.0-16.0 g/wQTwekkomsbj21.036.0-48.0 %Mean Corpuscular Yduzsu21.7 81.0-99.0 fLMean Corpuscular Acwzaaotsb93.326.7-34.0 pgMean Corpuscular HGB Conc 34.429.9-35.2 g/dLRed Cell Distribution Width13.111.0-15.0 %Platelet Igpxi209 150-450 10 3/uLMean Platelet Volume9.69.5-13.5 fLNeutrophils Percent Auto58.1 43.0-75.0 %Lymphocytes Percent Auto29.620.5-60.0 %Monocytes Percent Auto8.01.7- 12.0 %Eosinophils Percent Auto3.20.9-7.0 %Basophils Percent Auto0.90.2-2.0 % Immature Granulocytes Pct Auto0.20.0-0.5 %Neutrophils Absolute Auto2.71.4-6.5 10 3/uLLymphocytes Absolute Auto1.41.2-3.8 10 3/uLMonocytes Absolute Auto0.40.3-0.8 10 3/uLEosinophils Absolute Auto0.20.0-0.7 10 3/uLBasophils Absolute Auto0.00.0- 0.1 10 3/uLImmature Granulocytes Abs Auto0.010.00-0.03 10 3/uLPerforming Lab:see noteML - [facility] LBFERRITIN (Not yet reviewed by provider) Interpretation: Performing Lab: Notes/Report: [facility] ,Kxlnnamn72.08.0-252.0 ng/mLPerforming Lab:see noteML - [facility] LB PROF 14(COMP METB) (Not yet reviewed by provider) Interpretation: Performing Lab: Notes/Report: [facility] ,Mgtvxd124558-648 mmol/LPotassium3.93.5-5.1 mmol/EUhbanrlx17039-322 mmol/LCarbon Dhqakmx37.021.0-32.0 mmol/LAnion Gap13.6Umslggw41953-204 mg/dLBlood Urea Nitrogen8.07.0-18.0 mg/dLCreatinine0.900.55-1.02 mg/dLEstimated GFR ( Mariela>60>=60 mL/min/1.73m 2Estimated GFR (Non- Terri>60>=60 mL/min/1.73m 2BUN Creatinine Ratio8.9Resnllp0.18.5-10.1 mg/dLBilirubin Total0.70.2-1.0 mg/dL Aspartate Amino Tainfhxvnwn6653-18 U/LAlanine Kwioxqvsqmuoanka2053-78 U/L Alkaline Icqodfxpiam2126-783 U/LTotal Protein7.36.4-8.2 g/dLAlbumin Level3.53.4- 5.0 g/dLGlobulin3.8Albumin Globulin Ratio0.9Performing Lab:see note - [facility] LBVITAMIN D 25 [place] (Not yet reviewed by provider) Interpretation: Performing Lab: Notes/Report: [facility] ,Vitamin D33.5 <20 ng/mL Vit D deficient >100 ng/mL Potential Toxicity 30-100 ng/mL Vit D sufficient 20-<30 ng/mL Vit D insufficient Performing Lab:see note - [facility] LBVitamin B12 (Not yet reviewed by provider) Interpretation: Performing Lab: Notes/Report: [facility] ,Vitamin [id number] pg/mL Cab Driver: Prabhakar Warren PhD, Phone: [phone] [address] [place], [place] [phone] Performed at: - [facility] Performing Lab:see note - [facility] LBIRON AND TIBC (Not yet reviewed by provider) Interpretation: Performing Lab: Notes/Report: [facility] ,Oowv222.050.0-170.0 ug/dLTotal Iron Binding Pmwsozno506.0250.0-450.0 ug/dL Percent Iron Xlsbyuonxw42.4Performing Lab:see note - [facility] LB VITAMIN D 25 [place] (Not yet reviewed by provider) Interpretation: Performing Lab: Notes/Report: [facility] ,Vitamin D35.4 20-<30 ng/mL Vit D insufficient <20 ng/mL Vit D deficient 30-100 ng/mL Vit D sufficient >100 ng/mL Potential Toxicity Performing Lab:see note - [facility] LBPROF CHEM 8 (BAS METB) (Not yet reviewed by provider) Interpretation: Performing Lab: Notes/Report: [facility] ,Myrihq127006-436 mmol/LPotassium4.13.5-5.1 mmol/YTlihcesb06089-021 mmol/LCarbon Xtrkunc93.421.0-32.0 mmol/LAnion Gap13.3Qpdtalw1592-877 mg/dLBlood Urea Nitrogen 12.07.0-18.0 mg/dLCreatinine0.920.55-1.02 mg/dLEstimated GFR ( Mariela>60 >=60 mL/min/1.73m 2Estimated GFR (Non- Terri>60>=60 mL/min/1.73m 2BUN Creatinine Ratio13.6Xyckgug1.48.5-10.1 mg/dLPerforming Lab:see noteML - [facility] LBLAB TESTING (Not yet reviewed by provider) Interpretation: Performing Lab: Notes/Report: [id number] FERRITIN [facility] ,Miscellaneous TestCOMMENT. [address], [place] [id number] Performed at: [facility] Test Ordered: [id number] Ferritin Cab Driver: Prabhakar Warren PhD, Phone: [phone] Ferritin 50 ng/mL CB Reference Range: 15-150 Performing Lab:see noteLC - [facility] LBIRON AND TIBC (Not yet reviewed by provider) Interpretation: Performing Lab: Notes/Report: [facility] ,Iron72.050.0-170.0 ug/dLTotal Iron Binding Lhjiqyed105.0250.0-450.0 ug/dL Percent Iron Xkiutjeijp75.2Performing Lab:see noteML - [facility] LB CBC AUTO DIFF (Not yet reviewed by provider) Interpretation: Performing Lab: Notes/Report: [facility] ,White Blood Count6.74.0-11.0 10 3/uLRed Blood Count4.384.20-5.40 10 6/uL Rfydgavxch80.612.0-16.0 g/hXYjogmxwaqq28.236.0-48.0 %Mean Corpuscular Amhffd04.6 81.0-99.0 fLMean Corpuscular Zxjmwzagjh24.326.7-34.0 pgMean Corpuscular HGB Conc 33.829.9-35.2 g/dLRed Cell Distribution Width12.811.0-15.0 %Platelet Rabkm196 150-450 10 3/uLMean Platelet Volume9.29.5-13.5 fLNeutrophils Percent Auto61.0 43.0-75.0 %Lymphocytes Percent Auto27.120.5-60.0 %Monocytes Percent Auto6.91.7- 12.0 %Eosinophils Percent Auto4.30.9-7.0 %Basophils Percent Auto0.60.2-2.0 % Immature Granulocytes Pct Auto0.10.0-0.5 %Neutrophils Absolute Auto4.11.4-6.5 10 3/uLLymphocytes Absolute Auto1.81.2-3.8 10 3/uLMonocytes Absolute Auto0.50.3-0.8 10 3/uLEosinophils Absolute Auto0.30.0-0.7 10 3/uLBasophils Absolute Auto0.00.0- 0.1 10 3/uLImmature Granulocytes Abs Auto0.010.00-0.03 10 3/uLPerforming Lab:see note - [facility] LBVitamin B12 (Not yet reviewed by provider) Interpretation: Performing Lab: Notes/Report: [facility] ,Vitamin [id number] pg/mL Cab Driver: Prabhakar Warren PhD, Phone: [phone] Performed at: [facility] [address] [id number] Performing Lab:see note - [facility] LBVITAMIN D 25 [place] (Not yet reviewed by provider) Interpretation: Performing Lab: Notes/Report: [facility] ,Vitamin D39.3 >100 ng/mL Potential Toxicity <20 ng/mL Vit D deficient 30-100 ng/mL Vit D sufficient 20-<30 ng/mL Vit D insufficient Performing Lab:see note - [facility] LBFERRITIN (Not yet reviewed by provider) Interpretation: Performing Lab: Notes/Report: [facility] ,Czvgosfz245.08.0-252.0 ng/mLPerforming Lab:see note - [facility] LBCBC AUTO DIFF (Not yet reviewed by provider) Interpretation: Performing Lab: Notes/Report: [facility] ,White Blood Count2.84.0-11.0 10 3/uLRed Blood Count3.994.20-5.40 10 6/uL Vkpzrdoqgt88.512.0-16.0 g/nUIxkjmedrfv95.636.0-48.0 %Mean Corpuscular Ugcuwi20.2 81.0-99.0 fLMean Corpuscular Frpanksvnt61.826.7-34.0 pgMean Corpuscular HGB Conc 34.129.9-35.2 g/dLRed Cell Distribution Width12.211.0-15.0 %Platelet Czder909 150-450 10 3/uLMean Platelet Volume9.79.5-13.5 fLNeutrophils Percent Auto45.4 43.0-75.0 %Lymphocytes Percent Auto34.520.5-60.0 %Monocytes Percent Auto18.71.7- 12.0 %Eosinophils Percent Auto0.70.9-7.0 %Basophils Percent Auto0.70.2-2.0 % Immature Granulocytes Pct Auto0.00.0-0.5 %Neutrophils Absolute Auto1.31.4-6.5 10 3/uLLymphocytes Absolute Auto1.01.2-3.8 10 3/uLMonocytes Absolute Auto0.50.3-0.8 10 3/uLEosinophils Absolute Auto0.00.0-0.7 10 3/uLBasophils Absolute Auto0.00.0- 0.1 10 3/uLImmature Granulocytes Abs Auto0.000.00-0.03 10 3/uLPerforming Lab:see note - [facility] LBVitamin B12 (Not yet reviewed by provider) Interpretation: Performing Lab: Notes/Report: [facility] ,Vitamin [id number] pg/mL Cab Driver: Prabhakar Warren PhD, Phone: [phone] [address], [place] [id number] Performed at: [facility] Performing Lab:see note - [facility] LBVITAMIN D 25 [place] (Not yet reviewed by provider) Interpretation: Performing Lab: Notes/Report: [facility] ,Vitamin D31.2 <20 ng/mL Vit D deficient 20-<30 ng/mL Vit D insufficient >100 ng/mL Potential Toxicity 30-100 ng/mL Vit D sufficient Performing Lab:see note - [facility] LBPROF CHEM 8 (BAS METB) (Not yet reviewed by provider) Interpretation: Performing Lab: Notes/Report: [facility] ,Bivmfi987261-605 mmol/LPotassium4.33.5-5.1 mmol/DDomspljc10329-980 mmol/LCarbon Tmcjrxs08.321.0-32.0 mmol/LAnion Gap14.2Gitsyff4861-680 mg/dLBlood Urea Nitrogen 11.07.0-18.0 mg/dLCreatinine0.940.55-1.02 mg/dLEstimated GFR ( Mariela>60 >=60 mL/min/1.73m 2Estimated GFR (Non- Terri>60>=60 mL/min/1.73m 2BUN Creatinine Ratio11.0Jgxnppq2.28.5-10.1 mg/dLPerforming Lab:see note - [facility] LBIRON AND TIBC (Not yet reviewed by provider) Interpretation: Performing Lab: Notes/Report: [facility] ,Mtqk587.050.0-170.0 ug/dLTotal Iron Binding Zrnepxcc381.0250.0-450.0 ug/dL Percent Iron Ppjghewbck28.4Performing Lab:see note - [facility] LB FERRITIN (Not yet reviewed by provider) Interpretation: Performing Lab: Notes/Report: [facility] ,Otcqlpjb09.08.0-252.0 ng/mLPerforming Lab:see note - [facility] LB IRON AND TIBC (Not yet reviewed by provider) Interpretation: Performing Lab: Notes/Report: [facility] ,Ebft250.050.0-170.0 ug/dLTotal Iron Binding Oxydrxma212.0250.0-450.0 ug/dL Percent Iron Ohpfqynzuk92.2Performing Lab:see note - [facility] LB CBC AUTO DIFF (Not yet reviewed by provider) Interpretation: Performing Lab: Notes/Report: [facility] ,White Blood Count5.14.0-11.0 10 3/uLRed Blood Count4.274.20-5.40 10 6/uL Aiakxiloql46.412.0-16.0 g/qRZfzkoronmi05.936.0-48.0 %Mean Corpuscular Whgokn44.1 81.0-99.0 fLMean Corpuscular Llluienwlq84.726.7-34.0 pgMean Corpuscular HGB Conc 34.429.9-35.2 g/dLRed Cell Distribution Width12.711.0-15.0 %Platelet Ogudo361 150-450 10 3/uLMean Platelet Volume9.09.5-13.5 fLNeutrophils Percent Auto55.2 43.0-75.0 %Lymphocytes Percent Auto33.820.5-60.0 %Monocytes Percent Auto6.11.7- 12.0 %Eosinophils Percent Auto3.90.9-7.0 %Basophils Percent Auto0.80.2-2.0 % Immature Granulocytes Pct Auto0.20.0-0.5 %Neutrophils Absolute Auto2.81.4-6.5 10 3/uLLymphocytes Absolute Auto1.71.2-3.8 10 3/uLMonocytes Absolute Auto0.30.3-0.8 10 3/uLEosinophils Absolute Auto0.20.0-0.7 10 3/uLBasophils Absolute Auto0.00.0- 0.1 10 3/uLImmature Granulocytes Abs Auto0.010.00-0.03 10 3/uLPerforming Lab:see noteML - [facility] LB Reason For Referral No Information Encounters Encounter Location Date Provider Diagnosis [facility] Oncology [address] [place] [place] [address] 06/07/2024 [facility] [address] [place] [place] [address]/04[facility] [address] [place] [place] [place] [address]/[facility] [address] [place] [place] [place] [address]/poorva [facility] Oncology [address] [place] [place] [place] [address]/[facility] [address] [place] [place] [place] [address]/[facility] [address] [place] [place] [address]/ [facility] [address] [place] [place] [place] [address]/[facility] [address] [place] [place] [place] [address]/[facility] On[facility] [address] [place] [place] [place] [address]/PORIVA [facility] [address] [place] [place] [place] [address]/[facility] [address] [place] [place] [place] [address]/ Emy [facility] [address] [place] [place] [place] [address]/[facility] [address] [place] [place] [place] [address]/[facility] Oncology [address] [place] [place] [place] [address]/poorva [facility] Plan Of Treatment Pending Test Test [...] D 25 [place] 04/10/2025 Erythrocyte Sedimentation Rate Vitamin B12 02/09/2024 Factor V Leiden Mutation 12/22/2023 Factor II, DNA Analysis 12/22/2023 Beta-2 Glycoprotein I Ab,G,A,M Vitamin B12 01/09/2025 Vitamin B12 10/31/2024 Vitamin B12 07/05/2024 Vitamin B12 06/02/2024 Vitamin B12 04/10/2025 Next Appt Details Provider Name:Emy Lemus , 06/06/2025 09:30:00 AM, [address] [place], [address], Provider Name:Emy Lemus , 06/06/2025 09:45:00 AM, [address] [place], [address], Insurance Providers Payer Name Payer Address Payer Phone Subscriber Number Group Number Insured Name Patient Relationship to Insured Coverage Start Date Coverage End Date [employer] MED[employer]ARE [address] [place], [place] [id number] [employer] - patient is the [id number] 2024[facility]ID [facility] [address] [facility] [id number] [employer] - patient is the [id number] 2023
--- OUTSIDE RECORDS SUMMARY | 2025-05-15 11:20 | XMS_ITS | Clinical Summary ---
Author Organization [facility] Address [address] [place] [id number] Care Team Providers Care [employer] Feeder Name Role Phone Sharyn Bradford MD Primary Care Provider [phone] Allergies Active AllergyReactionsCriticalityNoted DateCommentsHydromorphone (Bulk)Itching Ukvnxp4103/28/2019 Medications MedicationSigDispense QuantityRefillsLast FilledStart DateEnd DateStatus promethazine [...] Problems ProblemNoted DateDiagnosed DateFlank pain11/09/2020Non-intractable vomiting with rinqvh3305/25/2020Abdominal pain10/23/2019Malfunction of jejunostomy tube 07/10/2019Obesity, Class II, BMI 35-39.910136Wzuixsty05/29/2019Chiari I udwkpvopbxkw00/07/2019Acute alteration in mental pzhtzx1903/11/2019Dehydration 12/24/2018S/P partial lqkxltvcubt01/18/2019Stricture of ifxfpry5012/07/2018 Anastomotic stricture of ytfquhi7511/02/20183240Kkabwv38/02/2019Mild protein-calorie txorvvlczqhx71/27/2019Intractable nausea and fbyauzfh86/24/2019Obesity, Class III, BMI >= 40007/22/20184734Trfidboesbjxo97/29/2018 Overview (03/12/2019): patient has known gastroparesis. G-tube in place and is on tube feeds. 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 -Biopsy proven per patient. -Was on Flovent then a five day course of prednisone was given (completed) Plan: Continue Flovent. Vision hhtkypgnmfjrr13/05/2014 Overview (10/25/2013): Pt complains of seeing white spots, her visual field and acuity do not seem to be affected. Ophthalmology consulted, eye exam unremarkable Her dizziness improved, orthostatic negative, no ear symptoms. Cenmph1610/24/2013 Overview (10/24/2013): Acute, likely 2/2 vaginal bleed, plan for IUD as out-pt. Hgb stable Lpdritppydl92/03/2014 Overview (10/25/2013): likely 2/2 narcotic, passing gas, does not feel constipated, refuses cotton seed enema Will D/C home with senna and Miralax Vaginal imqshwuu73/01/2014 Overview (10/25/2013): Pt had her period started week ago was slowing down, got much worse and heavier after Heparin drip,soaks 1 pad Q15 min, now Q30 minutes. . Pt denies dizziness today, VS stable, Hgb relatively stable Benefits/risk explained to pt. Vascular Medicine consulted for vaginal bleed. Continue AC for now. Gynecology consulted as well, they recommended IUD for alf management and If becomes hemodynamically unstable or acutely symptomatic with vaginal bleeding, recommend Megace 40mg BID for cessation of bleeding. 5/4: Vaginal bleed slowed down, changes pad only every few hours, Hgb relatively stable, VS stable,pt is asyptomatic, dizziness is better 5/5: 2 pads last 24 hours, CBC and VS stable 10/25: Almost gone. Gynecology as out-pt. Azbovajyijj15/01/2014cute thrombosis of left axillary vein10/20/2013rachial vein thrombosis, left10/20/2013 Overview (11/14/2013): -Recent diagnosis 10/2013 -On coumadin. -INR on presentation 2.8 - INR 2.3 today Plan: Dispo planning Anticoagulation management fvtoknkme21/01/2014cute embolism and thrombosis of superficial vein of both upper fypyrzcwrrp00/01/2014rm edema10/20/2013Left arm qkrzsovt69/29/2014 Overview (10/25/2013): Reported Hx of her mother [...] Resolved Problems ProblemNoted DateDiagnosed DateResolved DateNausea & dkydirbr31/17/2019 06/09/2019Dislodged jejunostomy tubeSyncope10/08/15/20193272Evviext06/Headache10/Headache in front of head Assessment & Plan (03/12/2019 11:56 AM EDT): Assessment: - Frontal headache for past 2-3 days - Some photophobia - denies visual changes - intermittent dizziness with standing, this is not new PLAN: - headache cocktail PRN - MRI brain - EEG Altered aeivqkpd76 Overview (03/12/2019): Altered Mentation beginning on 02/26, [...] headache cocktail - Neurology consulted Nausea & pxoqeixo76Hypokalemia Overview (10/23/2013): K 3.3, likely 2/2 poor [...] anticoagulation. -Pain and Nausea control. Nausea and olyrlwqk17 Overview (10/19/2013): Please see abdominal pain for [...] care, and heating?Not hard at all10/24/2019PHQ-2AnswerDate RecordedPHQ2 Xrfvj975 Hunger Vital SignAnswerDate RecordedWithin the past 12 [...] number is lower riskNot on file05/26/2020Data from: https://www.neighborhoodatlas.medicine.[facility].edu/. Last address used for calculationNot on file05/26/2020CommentsNoSex and Gender Information ValueDate RecordedSex Assigned at GwhceImsors01/29/2021 8:13 PM EDTLegal Sex [place]0005/23/2012 9:42 AM ESTGender JcgysngmXstgcp84/29/2021 8:13 PM EDTSexual ApovzxkpbhvXbbvdynq61/29/2021 8:13 PM EDT Last Filed Vital Signs Vital SignReadingTime TakenCommentsBlood Ndpnjrqw387/63011/13/2020 2:52 PM EDT Aasnp0206/25/2021 2:52 PM WFVEkgvuebwgwz00.5 ??C (97.7 ??F)11/12/2020 11:40 AM EDTRespiratory Wids676211/12/2020 11:40 AM EDTOxygen Dxhdpnanoi317%11/13/2020 2:52 PM EDTInhaled Oxygen Concentration--Hvzacg66.5 kg (215 lb)11/09/2020 2:15 PM EDT Lblolj305.6 cm (5' 5.98 )11/09/2020 2:15 PM EDTBody Mass Index34.72011/09/2020 2:15 PM EDT Plan of Treatment Health MaintenanceDue DateLast DoneCommentsAnxiety Eplmkronm02/11/2001Depression Gugdpwywp08/11/2001HIV Omnxddimk40/11/2001Hepatitis C Popfyvokg51/11/2001 DTaP,Tdap,Td Vaccine (1 - Tdap)2001Hepatitis B Vaccine (1 of 3 - 19+ 3- dose series)2001HPV Vaccine (1 - 3-dose SCDM series)2009Cervical Cancer Ezlsdamki24Mammogram Xzctrchld85/11/2023Covid-19 Vaccine (1 - season)2025Influenza Vaccine (#1)2025 05/27/2020, 08/29/2019, 04/10/2019, Additional history exists Medical Devices ImplantedTypeAreaManufacturerDevice IdentifierShelf Expiration DateModel / Serial / LotSt Hudson 46 Implanted:Qty: 1 on 04/11/2020LeadHeartST [id number] / / [place] 52 Implanted:Qty: 1 on 04/11/2020LeadHeartST [id number] / / [place] Assurity Mri [id number] Implanted:Qty: 1 on 04/11/2020PacemakerChest WallST [id number] / / [id number] Assurity [id number] Implanted:04/11/2020 (Quantity not on file)PacemakerST [id number] Assurity MRI / [id number] / Tray Port-A-Cath Ii 7.8fr 2.6mm 1.6mm Polysulfone Titanium Polyurethane 76 - [id number] Implanted:07/22/2018 at [facility] (Quantity not on file)PortRight: Chest WallSPROMEDICA F[facility] MEDICAL ASD [id number] / / [id number] Feeding Tube 10f 60cm Implanted:Qty: 1 [facility]17/[facility]: NoseCORPAK [id number] / / [id number] Ponsky 20fr Silicone Peg Pull Deluxe Kit Non Safety Sterile - [id number] Implanted:01/31/2019 at [facility] (Quantity not on file)TubeLeft: AbdomenBARD PERIPHERAL SLAYKVAL00/28/[id number] / / [id number] Claudio Secur-Migue 20fr Standard J Silicone Jejunostomy Trimmable Distal - [id number] Implanted:04/20/2019 at [facility] (Quantity not on file)TubeLeft: AbdomenHALYARD OHSOZM23-20 / / [id number] Claudio Secur-Migue 18fr Standard Silicone Natural Rubber Jejunostomy - [id number] Implanted:07/11/2019 at [facility] (Quantity not on file)TubeLeft: AbdomenHALYARD QQXMQA76-18 / / [id number] Endovive 20fr Xylocaine Silicone Peg Pull Method Ampule Trocar Cannula - [id number] Implanted:10/25/2019 at [facility] (Quantity not on file)TubeN/A: AbdomenBOSTON SCIENTIFIC MFFEYBYYE83/30/[id number] / / [id number] Insurance * Guarantor: Maricarmen Tran TypeRelation to PatientDate of BirthPhone Billing AddressSelf [id number] [phone] [facility] [address] [place] [address] Advance Directives * Full Code (Latest Code Status on File) Date ActivatedDate InactivatedComments11/12/2020 7:42 AM11/12/2020 10:05 PM QuestionAnswerCommentsFull Code Order Discussed With:* Patient * Full Code Date ActivatedDate InactivatedComments10/26/2019 3:29 PM10/26/2019 6:42 PMQuestion AnswerCommentsFull Code Order Discussed With:* Patient * Full Code Date ActivatedDate InactivatedComments08/11/2019 10:46 AM08/15/2019 6:10 PM QuestionAnswerCommentsFull Code Order Discussed With:* Patient Care Teams Team MemberRelationshipSpecialtyStart DateEnd Date Sharyn Brdaford MD [address] [place] [phone] [facility] - General10/18/13
--- OUTSIDE RECORDS SUMMARY | 2025-05-15 11:26 | XMS_ITS | CCD ---
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 Role Phone Unavailable Primary Care Provider UnavailROSELINE Johnson Referring Unavailable Viktor Bradford Unavailable Viktor Bradford MD Primary Care Provider MD Viktor Bradford Primary Care Provider [phone] MD Cornell Mcnair Emergency Provider MD Eduardo Swain Admit Provider MD Eduardo Swain Attending Provider DO Urbano Palma Other Provider OSVALDO Oconnor Emergency Provider [phone] MD Viktor Bradford Primary Care Provider DO Urbano Palma Attending Provider DO Michael Cerda Emergency Provider DO Delaney Vargas Attending Provider MD Viktor Bradford Primary Care Provider DO Urbano Palma Attending Provider MD Eduardo Swain Admit Provider MD Eduardo Swain Attending Provider Unavailable Unavailable MD Dustin Cody Admit Provider MD Dustin Cody Attending Provider [phone] VIKTOR BRADFORD Primary Care Physician MD Viktor Bradford Primary Care Provider DO Urbano Palma Attending Provider [phone] Parminderlorene DO Michael Murrieta Emergency Provider MD Eduardo Swain Admit Provider MD Eduardo Swain Attending Provider MD Dustin Cody Admit Provider [phone] MD Dustin Cody Attending Provider ViscDO Urbano lazar Admit Provider DO Raffaele Ellsworth Emergency Provider MD Toribio Cerda Admit Provider [phone] MD Toribio Cerda Attending Provider MD Viktor Bradford Primary Care Provider Louie, DO Clement Attending Provider Parminderlorene DO Michael Murrieta Emergency Provider DUANE Cortez Emergency Provider DO Keven Florentino Emergency Provider [phone] CANDICE .KRISTA Admitting Unavailable KRISTA ANTONIO Consulting Unavailable KRISTA ANTONIO Attending Unavailable DR VIKTOR BRADFORD Primary Care Unavailable DR VIKTOR BRADFORD Primary Care Unavailable ALYSSA PIÑA Admitting Unavailable ALYSSA PIÑA Consulting Unavailable ALYSSA PIÑA Attending Unavailable MD Viktor Bradford Primary Care Provider LAURYN Dejesus Other Provider Unavailable LAURYN Palmer Other Provider Unavailable LAURYN Garrett Other Provider Unavailable LAURYN Arana Other Provider Unavailable LAURYN Orta Other Provider Unavailable Mario RN Yisel [...] Provider MD Yossi Peterson Other Provider Glynn, SEAL DELIVERY VEHICLE OFFICER-C Gretta Helms Other Provider MD Yonny Bazan [...] LAURYN Hurtado Other Provider Unavailable MD Viktor Bradford Primary Care Provider MD Toribio Cerda Admit Provider MD Toribio Cerda Attending Provider Niles Ke Emergency Provider [phone] MD Eduardo Swain Admit Provider [phone] MD Eduardo Swain Attending Provider MD Michael Han Attending Provider Sanchez, Dr. Viktor Pack Primary Care Unav ailable Ne, Dr. Rita Bond Attending Unavailab le Sanchez, Dr. Viktor Pack Primary Care Unav ailable Ne, Dr. Rita Bond Attending Unavailab le Sanchez, Dr. Viktor Pack Primary Care Unav ailable Ne, Dr. Rita Bond Attending Unavailab le Ne, Dr. Rita Bond Referring Unavailab le Ne, Dr. Rita Bodn Attending Unavailab le Bradford, Dr. Viktor Pack Primary Care Unav asher Bradford, Dr. Viktor Pack Primary Care Unav ailable Ne, Dr. Rita Bond Attending Unavailab huma Bradford, MD Viktor Leone Primary Care Provider [phone] MD Eh Jennings Other Provider Unavailable NE, MD RITA BOND Attending Unavailabl e NE, MD RITA BOND Referring Unavailabl e Sanchez, Dr. Viktor Pack Primary Care Unav asher Bradford, Dr. Viktor Pack Primary Care Unav asher Bradford, Dr. Viktor Pack Primary Care Unav ailable NE, MD RITA BOND Attending Unavailabl e NE, MD RITA BOND Referring Unavailabl e Sanchez, Dr. Viktor Pack Primary Care Unav Viktor Rivera MD Primary Care Provider Unavailable Viktor Bradford MD Primary Care Provider Viktor Bradford MD Primary Care Provider [phone] VIKTOR BRADFORD Primary Care Unavailable JESSE SIMS Attending Unavailable LEMUEL RENTERIA Admitting Unavailable MARKER, SUJATA Referring Unavailable TONYA JACOBS Consulting Unavailable GILBERTO LOCKHART Consulting Unavailable RAYMOND ORTIZ Consulting Unavailable MD Viktor Bradford Primary Care Provider [phone] MD Nimesh Cerda Attending Provider Viktor Bradford MD Primary Care Provider Viktor Bradford MD Primary Care Provider Estela Chung PA-C Attending Provider Zaida PATINO, Nimesh Attending Provider Michael Han MD Attending Provider Viktor Bradford MD Primary Care Provider Michael Han MD Attending Provider Zaida PATINO, Nimesh Attending Provider [phone] Tete Snell MD Attending Provider Viktor Bradford MD Primary Care Provider [phone] Zaida PATINO, Nimesh Attending Provider Gaurav Oliver MD Attending Provider Michael HAN Referring Unavailable ESTELA CHUNG Attending Unavailable ESTELA CHUNG Attending Unavailable Michael HAN Admitting Unavailable Michael HAN R Attending Unavailable Michael HAN R Referring Unavailable JATINESTELA GALLEGOS Attending Unavailable JATINESTELA GALLEGOS Attending Unavailable NE, RITA J Referring Unavailable BRADFORD, VIKTOR E Primary Care Unavailable NE, RITA J Referring Unavailable BRADFORD, VIKTOR E Primary Care Unavailable NE, RITA J Referring Unavailable BRADFORD, VIKTOR E Primary Care Unavailable NE, RITA J Referring Unavailable BRADFORD, VIKTOR E Primary Care Unavailable Bradford, Viktor E Primary Care Unavailable Zaida, Nimesh Admitting Unavailab Nimesh Kerns Attending Unavailab Gaurav Abebe Admitting Unavailable Gaurav Oliver Attending Unavailable Bradford, Ivktor E Primary Care Unavailable HanMichael Attending Unavailable Bradford, Viktor E Primary Care Unavailable Michael Han Admitting Unavailable Bradford, Viktor E Primary Care Unavailable Giedraitis, Andrius Admitting Unavailable Giedraitis, Andrius Attending Unavailable Giedraitis, Andrius Admitting Unavailable Giedraitis, Andrius Attending Unavailable Viktor Bradford Primary Care Unavailable Viktor Bradford Primary Care Unavailable Estela Chung E Admitting Unavailable Estela Chung Attending Unavailable Giedraitis , Andapple Schaeffer Attending Unavailable Giedraitis , Andrius Schaeffer Attending Unavailable Giedraitis , Andapple Schaeffer Attending Unavailable Giedraitis , Andapple Schaeffer Attending Unavailable Giedraitis , Andapple Schaeffer Attending Unavailable Allergies Allergy ClassificationReported Allergen(s)Allergy TypeDate of OnsetReaction(s) Facility (20 sources)HYDROmorphone; 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: [Dilaudid]Drug Vrcktwy21-22-4177Rztgzhs (finding), Unknown (qualifier value), Itching, UnknownExecutive [facility] (2 sources)HYDROmorphoneDrug Paxxpiy70-80-3146[facility] (19 sources)HYDROmorphone; 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: [HYDROmorphone]Drug Sithrut20-42-9923 [facility] (1 source)HYDROmorphoneDrug AllergyThe [facility] (1 source)Fluarix (PF)Drug allergy (disorder)83-28-8251Pxs [facility] Medications Current Medications MedicationDrug Class(es)DatesSig (Normalized)Sig (Original)ARIPiprazole 30 mg oral tablet (20 sources)Atypical AntipsychoticStart: 26-51-9998ivco 1 tablet by mouth once dailyARIPiprazole (Abilify) 30 mg tablet Take 1 tablet (30 mg) by mouth once daily. 09/03/2022 ActiveStart: 08-02-2022 End: 48-68-1959Txrutmnwllba (Abilify) 20 mg tablet Discontinued 30 MG PO Daily August 02, 2022 7:37am September 03, 2022 11:31pmStart: 07-17-2022 End: 09-14-2532acym 1 tablet by mouth once dailyAripiprazole 20 mg Tablet Discontinued 20 MG PO Daily 30 July 17, 2022 1:00am August 02, 2022 7:37amStart: 12-11-2021 End: 09-00-7695kmgd 1 tablet by mouth once dailyAripiprazole 15 mg Tablet Discontinued 15 MG PO Daily December 11, 2021 12:00am July 17, 2022 1:16pmStart: 11-05-2021 End: 66-02-2948duvw 1 tablet by mouth once dailyAripiprazole 2 mg Tablet Discontinued 2 MG PO Daily November 05, 2021 12:00am December 11, 2021 11:22am Start: 10-13-2021 End: 77-27-7467jqvy 1 tablet by mouth once dailyAripiprazole 10 mg Tablet Discontinued 10 MG PO Daily October 13, 2021 12:00am December 11, 2021 11:22amStart: 09-04-2021 End: 74-32-9008infz 1 tablet by mouth once dailyAripiprazole 20 mg Tablet Discontinued 20 MG PO Daily September 04, 2021 12:00am October 13, 2021 10:16amStart: 08-31-2021 End: 29-40-5073aqph 3 tablets by mouth once dailyAripiprazole (Abilify) 5 mg tablet Discontinued 15 MG PO Daily August 31, 2021 6:36pm September 04, 2021 1:08pmStart: 07-15-2021 End: 71-11-2052tldu 1 tablet by mouth once dailyAripiprazole 5 mg Tablet Discontinued 5 MG PO Daily July 15, 2021 1:00am August 31, 2021 6:36pm benztropine mesylate 0.5 mg oral tablet (8 sources)Anticholinergic, AntihistamineStart: 22-16-5005vjoy 1 tablet by mouth twice dailyBenztropine 0.5 mg Tablet Active 0.5 MG PO Twice daily December 15, 2022 12:00amciprofloxacin 500 mg oral tablet (20 sources)Quinolone AntimicrobialStart: 76-59-0355Bcosl 500 mg Tab See Instructions, 1 tab po night prior to cysto. 1 tab po following cysto., # 2 tab (s), Refills(s) 0, Pharmacy: [facility]/pharmacy #[id number], 167, cm, 04/28/23 10:12:00 EST, Height/Length Dosing, 111, kg, 04/28/23 10:12:00 EST, Weight Dosing Start Date: 06/02/24 Status: OrderedStart: 03-03-2019 End: 66-68-5870sybz 0.4881746187654499 mg by mouth every twelve hours Ciprofloxacin Hcl 500 mg tablet Discontinued 500 MG PO Twice daily March 03, 2019 12:00am March 05, 2019 4:30pm 1 Tablet by mouth every 12 hours STOP DATE ml erenumab-aooe 70 mg/ml auto-injector (20 sources)Start: 52-05-7687fvsuuc 1 mL by subcutaneous injection onceerenumab (Aimovig Autoinjector) 70 mg/mL injection Inject 1 mL (70 mg) under the skin every 28 (twenty-eight) days. 12/19/2020 ActiveStart: 12-19-2020 End: 61-04-6584vpaicy 70 mg by subcutaneous injection every 30 daysErenumab-Aooe (Aimovig Autoinjector) 70 mg/mL Auto-Injector Discontinued 70 MG SUBCUT Q30D August 31, 2021 1:00am June 25, 2022 10:16pm last taken 10/10/2223 hr metoprolol succinate 25 mg extended release oral tablet (9 sources)beta-Adrenergic BlockerStart: 52-64-2398ypsd 1 tablet by mouth once dailymetoprolol succinate XL (Toprol-XL) 25 mg 24 hr tablet Take 1 tablet (25 mg) by mouth once daily. 01/20/2023 Activemirtazapine 15 mg oral tablet (20 sources)Start: 95-99-7734znfr 1 tablet by mouth once daily at bedtime mirtazapine (Remeron) 15 mg tablet Take 1 tablet (15 mg) by mouth once daily at bedtime. 04/14/2023ctiveStart: 12-09-2021 End: 42-71-1446gove 1 tablet by mouth at bedtimeMirtazapine (Remeron) 15 mg tablet Discontinued 15 MG PO Bedtime December 09, 2021 12:00am November 9:36pmondansetron 4 mg disintegrating oral tablet (20 sources)Serotonin-3 Receptor AntagonistStart: 16-33-6578vsvr 1 tablet by mouth every eight hoursOndansetron 4 mg tablet,disintegrating Active 4 MG PO Q8H June 10, 2024 1:00amStart: 10-18-2022 End: 53-14-4770ptpb 1 tablet by mouth three times daily as needed for nausea Ondansetron 4 mg tablet,disintegrating Discontinued 4 MG PO Three times daily as needed for Nausea October 28, 2022 8:50pm November 12, 2023 1:30pmStart: 08-25-2019 End: 21-49-8381xhpd 1 tablet by mouth every six hours as needed for nausea Ondansetron 4 mg Tablet,Disintegrating Discontinued 4 MG PO Q6H as needed for Nausea August 25, 2019 1:00am February 18, 2020 5:45pmStart: 05-26-2019 End: 57-08-4338aazi 1 tablet by mouth every four hours as needed for nausea and vomitingOndansetron 4 mg Tablet,Disintegrating Discontinued 4 MG PO Every 4 hours as needed for Nausea And Vomiting December 11, 2021 12:00am August 12, 2022 1:21pmStart: 85-98-0529Xaakqv Oral, See Instructions, Refills(s) 0, Nausea/Vomiting Start Date: 11/15/13 Status: Ordered Repeat number: 1Start: 66-07-0294Gmgjul Oral, See Instructions, Refills(s) 0, Nausea/Vomiting Start Date: 11/15/13 Status: OrderedComment on above:Take 1 tablet by mouth every 4 hours as needed for Nausea/Vomiting.1.5 ml paliperidone palmitate 156 mg/ml prefilled syringe (20 sources)Atypical AntipsychoticStart: 95-83-6624Nelcgj Sustenna 234 mg/1.5 mL syringe Inject 1.5 mL (234 mg) into the muscle. 04/06/2023 ActiveStart: 98-71-9084Ylsleuzcwjra Palmitate (Invega Sustenna) 234 mg/1.5 mL syringe Active 234 MG IM Q28D December 11, 2022 12:00amStart: 09-07-2022 End: 84-27-1525emvx 1 tablet by mouth twice dailyPaliperidone 3 mg Tablet Extended Release 24 Hr Discontinued 3 MG PO Twice daily September 07, 2022 12:00am December 15, 2022 11:02amStart: 09-07-2022 End: 85-21-7154Dlygyyhudlya Palmitate (Invega Sustenna) 156 mg/mL Syringe Discontinued 156 MG IM Q28D 07 21September 07, 2022 12:00am December 11, 2022 9:27pm Start: 09-03-2022 End: 62-97-4863ghgb 1 tablet by mouth once daily in the morningPaliperidone (Invega) 3 mg Tablet Extended Release 24 Hr Discontinued 3 MG PO Every morning September 03, 2022 12:00am September 07, 2022 12:05pmStart: 10-13-2021 End: 05-43-3914cqiq 1 tablet by mouth once daily at bedtimePaliperidone 6 mg Tablet Extended Release 24 Hr Discontinued 6 MG PO Daily at bedtime 14 October 13, 2021 12:00am November 01, 2021 10:23amStart: 10-13-2021 End: 74-06-2056rdcibv 156 mg by intramuscular injection oncePaliperidone Palmitate (Invega Sustenna) 156 mg/mL Syringe Discontinued 156 MG IM Once 1 October 13, 2021 12:00am January 20, 2022 3:48pmtraZODone hydrochloride 50 mg oral tablet (20 sources)Serotonin Reuptake InhibitorStart: 88-97-8904pqya 1 tablet by mouth once daily at bedtimetraZODone (Desyrel) 50 mg tablet Take 1 tablet (50 mg) by mouth once daily at bedtime. 09/03/2022 ActiveStart: 96-35-2148Nzcareywc 50 mg tablet Active 75 MG PO Daily at bedtime as needed for Insomnia July 02, 2022 10:24amStart: 84-91-6091ilzf 75 mg by mouth once daily at bedtimeTrazodone Active 75 MG PO Daily at bedtime July 02, 2022 10:24amStart: 07-15-2021 End: 50-94-0086hwos 1 tablet by mouth once daily at bedtime as neededTrazodone 50 mg Tablet Discontinued 50 MG PO Daily at bedtime as needed for Insomnia October 13, 2021 12:00am July 02, 2022 10:24amwarfarin sodium 5 mg oral tablet (4 sources)Vitamin K AntagonistStart: 60-17-5163pcky 1 tablet by mouth once dailyWarfarin 5 mg tablet Active 5 MG PO Daily June 10, 2024 1:00am Completed/Discontinued Medications MedicationDrug Class(es)DatesSig (Normalized)Sig (Original)acetaminophen 500 mg oral tablet (14 sources)Start: 08-13-2022 End: 99-42-9043mrwe 2 tablets by mouth every six hoursAcetaminophen 500 mg Tablet Discontinued 1000 MG PO Q6H August 13, 2022 1:00am September 03, 2022 7:38pmStart: 08-13-2022 End: 80-16-7097fkat 1000 mg by mouth every six hoursAcetaminophen Discontinued 1000 MG PO Q6H August 13, 2022 1:00am September 03, 2022 7:38pmtake 500 mg by mouth every eight hours as neededacetaminophen (TYLENOL) 500 mg/15 mL liqd Take 500 mg by mouth every 8 hours as needed. 0 ActiveComment on above:Take 500 mg by mouth every 8 hours as needed.acetaminophen 325 mg / HYDROcodone bitartrate 5 mg oral tablet (20 sources)Opioid AgonistStart: 12-13-2020 End: 32-67-3562eneg 1 tablet by mouth every six hours as needed for pain Hydrocodone-Acetaminophen 5-325 mg tablet Discontinued 1 TAB PO Q6H as needed for pain 8 2 December 13, 2020 June 14, 2021 11:35amStart: 02-18-2020 End: 95-11-3002ctub 1 tablet by mouth twice daily as needed for painHydrocodone- Acetaminophen 5-325 mg Tablet Discontinued 1 TAB PO Twice daily as needed for Pain February 18, 2020 12:00am June 14, 2021 11:35amacetaZOLAMIDE 250 mg oral tablet (20 sources)Carbonic Anhydrase InhibitorStart: 08-21-2020 End: 69-23-9599pxxf 1 tablet by mouth twice dailyAcetazolamide 250 mg Tablet Discontinued 250 MG PO Twice daily July 09, 2021 1:00am November 12:58amStart: 02-21-2020 End: 36-68-9507necs 1 tablet by mouth twice dailyAcetazolamide 250 mg Tablet Discontinued 250 MG PO Twice daily 60 30 February 21, 2020 12:00am March 30, 2020 10:34pmComment on above:Take 250 mg by mouth twice daily.apixaban 5 mg oral tablet (9 sources)Factor Xa InhibitorStart: 11-12-2023 End: 39-92-7712umzy 1 tablet by mouth twice dailyApixaban (Eliquis) 5 mg tablet Discontinued 5 MG PO Twice daily 60 November 12, 2023 1:50pm June 10, 2024 10:39ambenzocaine 200 mg/ml / menthol 5 mg/ml topical spray (12 sources)Standardized Chemical AllergenStart: 08-13-2022 End: 40-52-6550Jpfoprlaoy-Menthol (Dermoplast (With Menthol)) 20-0.5 % Aerosol Discontinued 1 SPRAY TOPICAL PRN asneeded for Discomfort August 13, 2022 1:00am September 03, 2022 7:38pmBlood Pressure Kit Med And Lrg (10 sources)Start: 08-02-2022 End: 04-23-2185Lwduw Pressure Kit Med And Lrg Discontinued 0 .Route 1 August 02, 2022 1:00am August 13, 2022 1:07pm As directedStart: 18-89-3596Hqgjz Pressure Kit Med And Lrg Active 0 .Route 1 August 02, 2022 12:00am As directedBlood Pressure Kit Med And Lrg kit (4 sources)Start: 08-02-2022 End: 59-05-8807Tzzyb Pressure Kit Med And Lrg kit Discontinued 0 .Route 1 August 02, 2022 1:00am August 13, 2022 1:07pm As directedStart: 08-02-2022 End: 33-55-0060Xfvlu Pressure Kit Med And Lrg kit Discontinued 0 .Route 1 August 02, 2022 12:00am August 13, 2022 12:07pm As directedbusPIRone hydrochloride 5 mg oral tablet (20 sources)Start: 02-21-2020 End: 42-40-2156cvls 1 tablet by mouth three times dailyBuspirone 5 mg Tablet Discontinued 5 MG PO Three times daily 270 90 February 21, 2020 12:00am Octo pavel 2019 10:31pmcephalexin 500 mg oral capsule (20 sources)Cephalosporin AntibacterialStart: 43-94-1303ihnb 1 capsule by mouth once dailyKeflex 500 mg Cap 500 mg = 1 cap(s), Oral, Daily, Take 1 capsule the day before the procedure and 1capsule after the procedure, # 2 cap(s), Refills(s) 0, Pharmacy: [facility]/pharmacy #[id number], 167, cm, 09/03/22 13:32:00 EDT, Height/Length Dosing, 111, kg, 09/03/22 13:32:00 EDT... Start Date: 12/02/22 Status: OrderedStart: 10-18-2022 End: 00-67-3588tizz 1 capsule by mouth every six hoursCephalexin 500 mg capsule Discontinued 500 MG PO Q6H 40 October 18, 2022 12:00am October 28, 2022 8:35pm Start: 08-02-2022 End: 95-55-0401bifu 1 capsule by mouth every six hoursCephalexin 500 mg capsule Discontinued 500 MG PO Q6H 28 August 02, 2022 1:00am July 1:07pmStart: 08-01-2019 End: 23-28-7120ikta 1 capsule by mouth three times dailyCephalexin (Keflex) 500 mg Capsule Discontinued 500 MG PO Three times daily August 01, 2019 1 :00am August 25, 2019 10:16amcholecalciferol 0.025 mg oral tablet (20 sources)Vitamin DStart: 11-01-2022 End: 07-22-9363lpyw 1 tablet by mouth once dailyCholecalciferol (Vitamin D3) 25 mcg (1,000 unit) Tablet Discontinued 50 MCG PO Daily 60 30 November 01, 2022 12:00am November 12, 2023 1:29pmStart: 09-04-2021 End: 66-20-7318ftls 1 tablet by mouth once dailyCholecalciferol (Vitamin D3) 25 mcg (1,000 unit) Tablet Discontinued 50 MCG PO Daily 60 August 12:00am October 06, 2021 2:18pmStart: 02-18-2020 End: 21-90-1824nafu 1 capsule by mouth once dailyCholecalciferol (Vitamin D3) 1,000 unit capsule Discontinued 1000 UNIT PO Daily February 18, 2020 5:45pm June 14, 2021 11:35am take with some food, or when tube feeding is running.Start: 03-05-2019 End: 79-86-3094cvhy 1 capsule by mouth twice dailyCholecalciferol (Vitamin D3) 1,000 unit capsule Discontinued 1000 UNIT PO Twice daily 60 March 05, 2019 12:00am February 18, 2020 5:45pm take with some food, or when tube feeding is running.take 1 tablet by mouth twice dailycholecalciferol (VITAMIN D3) 1,000 unit tab tablet Take 1,000 Units by mouth twice daily. 0 ActiveComment on above: Take 1,000 Units by mouth twice daily.cyclobenzaprine hydrochloride 10 mg oral tablet (12 sources)Muscle RelaxantStart: 08-12-2022 End: 63-77-4788zuxz 1 mg by mouth at bedtime as needed for muscle spasms Cyclobenzaprine 10 mg Tablet Discontinued MG PO Bedtime as needed for Muscle Spasm August 12, 2022 1:00am September 03, 2022 7:38pmStart: 08-12-2022 End: 37-29-6653ogeg 1 mg by mouth at bedtimeCyclobenzaprine Discontinued MG PO Bedtime August 12, 2022 1:00am September 03, 2022 7:38pmDexlansoprazole (Dexilant) 60 mg capsule,biphase delayed releas (5 sources)Start: 11-11-2023 End: 49-08-0479bcqj 1 capsule by mouth once dailyDexlansoprazole (Dexilant) 60 mg capsule,biphase delayed releas Discontinued 60 MG PO Daily November 10, 2023 11:00pm November 12, 2023 12:29pmStart: 11-11-2023 End: 63-75-7730zfvh 1 capsule by mouth once dailyDexlansoprazole (Dexilant) 60 mg capsule,biphase delayed releas Discontinued 60 MG PO Daily November 11, 2023 12:00am November 12, 2023 1:29pmdocusate sodium 100 mg oral capsule (12 sources)Start: 08-13-2022 End: 10-51-6867gfjo 1 capsule by mouth at bedtimeDocusate Sodium 100 mg Capsule Discontinued 100 MG PO Bedtime August 13, 2022 1:00am September 03, 2022 7:38pmdoxepin hydrochloride 10 mg oral capsule (20 sources)Tricyclic AntidepressantStart: 08-31-2021 End: 77-93-0890dkpw 1 capsule by mouth once dailyDoxepin 10 mg Capsule Discontinued 10 MG PO Daily August 31, 2021 1:00am October 06, 2021 2:23pm Start: 09-10-2020 End: 88-38-1464rpud 1 capsule by mouth once daily at bedtimeDoxepin 10 mg capsule Discontinued 10 MG PO Daily at bedtime June 14, 2021 1:00am July 09, 2021 6:36pmferrous sulfate 325 mg oral tablet (20 sources)Start: 06-25-2022 End: 06-04-8908wzjv 1 tablet by mouth once dailyFerrous Sulfate (Iron) 325 mg (65 mg iron) Tablet Discontinued 325 MG PO Daily June 25, 2022 1:00am September 03, 2022 7:39pm1.5 ml fremanezumab-vfrm 150 mg/ml auto-injector (2 sources)inject 225 mg by subcutaneous injection every monthfremanezumab-vfrm (AJOVY AUTOINJECTOR) 225 mg/1.5 mL auto-injector Inject 225 mg subcutaneously once every month. Do not shake. 0 ActiveComment on above:Inject 225 mg subcutaneously once every month. Do not shake.gabapentin 50 mg/ml oral solution (1 source)Anti-epileptic AgentStart: 22-21-5253ynuk 6 mL by mouth every eight hoursgabapentin (NEURONTIN) 250 mg/5 mL (5 mL) oral solution Take 6 mL by mouth every 8 hours for 90 days. 540 mL 2 11/12/2020 ActiveComment on above:Take 6 mL by mouth every 8 hours for 90 days.1 ml galcanezumab-gnlm 120 mg/ml auto-injector (20 sources)Start: 08-25-2019 End: 92-65-6022lupuaj 120 mg by subcutaneous injection every 30 days Galcanezumab-Gnlm (Emgality Pen) 120 mg/mL Pen Injector Discontinued 120 MG SUBCUT Q30D August 25, 2019 1:00am June 14, 2021 3:53pmhydrOXYzine pamoate 50 mg oral capsule (20 sources)AntihistamineStart: 09-04-2021 End: 49-48-5916hbsb 1 capsule by mouth at bedtime as needed for anxiety Hydroxyzine Pamoate 50 mg capsule Discontinued 50 MG PO Bedtime as needed for Anxiety October 06, 2021 2:23pm December 11, 2021 11:22amlamoTRIgine 25 mg oral tablet (20 sources)Mood Stabilizer, Anti-epileptic AgentStart: 02-21-2020 End: 23-89-3412nryo 1 tablet by mouth twice dailyLamotrigine 25 mg Tablet Discontinued 25 MG PO Twice daily 60 30 February 21, 2020 12:00am June 14, 2021 11:36amlinaclotide 0.072 mg oral capsule (20 sources)Guanylate Cyclase-C AgonistStart: 11-11-2023 End: 67-95-2664uamc 1 capsule by mouth once dailyLinaclotide 72 mcg capsule Discontinued MCG PO November 11, 2023 12:00am November 12, 2023 1:30pm FreeTextSi capsule po one time daily; Note: Source Status: Refill; Refills: 3; Provider: Courtney Encarnaciontart: 10-19-2020 End: 29-55-4335grbd 1 capsule by mouth once dailylinaCLOtide (Linzess) 145 mcg capsule Take 1 capsule (145 mcg) by mouth once daily. 12/13/2020 ActiveStart: 03-03-2019 End: 95-76-2567hnmk 1 capsule by mouth once daily in the morningLinaclotide (Linzess) 145 mcg capsule Discontinued 145 MCG PO Daily March 03, 2019 12:00am February 18, 2020 5:44pm Takes in morning.Comment on above:Take 1 capsule by mouth once daily.LORazepam 1 mg oral tablet (20 sources)BenzodiazepineStart: 06-14-2021 End: 77-56-5270zdig 1 tablet by mouth twice daily as needed for anxietyLorazepam (Ativan) 1 mg tablet Discontinued 1 MG PO Twice daily as needed for Anxiety June 14, 2021 1:00am August 31, 2021 6:34pmStart: 95-42-5397OLSfnsrbd 0.5 MG Oral Tablet Quantity: 60 Refills: 0 Ordered: 24-Sep-2020 DO Start : 24-Sep-2020 Activetake 1 mg by mouth once daily at bedtimeLORazepam (ATIVAN) 0.5 mg Take 1 mg by mouth daily at bedtime. 0 ActiveComment on above:Take 1 mg by mouth daily at bedtime.metoclopramide 10 mg oral tablet (10 sources)Dopamine-2 Receptor AntagonistStart: 11-01-2022 End: 71-60-5370uupm 1 tablet by mouth once before mealtimeMetoclopramide Hcl 10 mg Tablet Discontinued 10 MG PO 3x/Day before meals 45 15 November 01, 2022 12:00am December 11, 2022 9:36pmModified Lanolin (Lanolin (Hpa)) 100 % Cream (12 sources)Start: 08-13-2022 End: 33-49-2396Msqebewa Lanolin (Lanolin (Hpa)) 100 % Cream Discontinued 1 APPLIC TOPICAL PRN as needed for Discomfort August 13, 2022 1:00am September 03, 2022 7:39pmStart: 08-13-2022 End: 76-68-0584Pbrjvwhj Lanolin (Lanolin (Hpa)) 100 % Cream Discontinued 1 APPLIC TOPICAL PRN as needed for Discomfort August 13, 2022 12:00am September 03, 2022 6:39pmStart: 08-13-2022 End: 37-53-3019Fvputpfg Lanolin (Lanolin (Hpa)) 100 % Cream Discontinued 1 APPLIC TOPICAL PRN August 13, 2022 1:00am September 03, 2022 7:39pmnaproxen 500 mg oral tablet (11 sources)Nonsteroidal Anti-inflammatory DrugStart: 10-18-2022 End: 68-09-7326xmza 1 tablet by mouth twice daily as needed for painNaproxen (Naprosyn) 500 mg tablet Discontinued 500 MG PO Twice daily as needed for pain October 18, 2022 12:00am October 28, 2022 6:00pmnitrofurantoin, macrocrystals 25 mg / nitrofurantoin, monohydrate 75 mg oral capsule (20 sources)Nitrofuran AntibacterialStart: 09-28-2022 End: 68-34-9255orgk 1 capsule by mouth every twelve hours at mealtime Nitrofurantoin Monohyd/M-Cryst (Macrobid) 100 mg capsule Discontinued 100 MG PO Q12H September 28, 2022 12:00am October 28, 2022 8:00pm Administer with a meal/food: swallow whole; do not open, crush, dissolve, or chewStart: 12-11-2021 End: 08-43-5267wjae 1 capsule by mouth twice dailyNitrofurantoin Monohyd/M-Cryst 100 mg Capsule Discontinued 100 MG PO Twice daily 8 4 December 11, 2021 12:00am January 20, 2022 3:48pmpantoprazole 40 mg delayed release oral tablet (20 sources)Proton Pump InhibitorStart: 12-17-2020 End: 90-78-2890zrei 1 tablet by mouth once dailyPantoprazole (Protonix) 40 mg tablet,delayed release (DR/EC) Discontinued 40 MG PO Daily June 14, 2021 1:00am December 11, 2021 11:22amStart: 08-01-2019 End: 31-25-8379tajz 1 tablet by mouth twice dailyPantoprazole (Protonix) 40 mg Tablet,Delayed Release (Dr/Ec) Discontinued 40 MG PO Twice daily August 01, 2019 1:00am February 18, 2020 5:44pmPrenatal Vit No.532-Gybs-Jetyn ( Vitamin) 27 mg iron- 800 mcg Tablet (20 sources)Start: 12-11-2021 End: 97-86-2106ntmo 1 tablet by mouth once dailyPrenatal Vit No.535-Wbtf-Kfzhz ( Vitamin) 27 mg iron- 800 mcg Tablet Discontinued 1 TAB PO Daily December 10, 2021 11:00pm September 03, 2022 6:39pmStart: 12-11-2021 End: 86-02-4229izae 1 tablet by mouth once dailyPrenatal Vit No.819-Rawh-Eyxfm ( Vitamin) 27 mg iron- 800 mcg Tablet Discontinued 1 TAB PO Daily December 11, 2021 12:00am September 03, 2022 7:39pmStart: 79-92-9056dxbs 1 tablet by mouth once dailyPrenatal Vit No.303-Qban-Wiqdp ( Vitamin) 27 mg iron- 800 mcg Tablet Active 1 TAB PO Daily December 10, 2021 11:00pmStart: 12-11-2021 take 1 tablet by mouth once dailyPrenatal Vit No.276-Zcxe-Brygg ( Vitamin) 27 mg iron- 800 mcg Tablet Active 1 TAB PO Daily December 11, 2021 12:00amPrenatal Vitamin TABS (8 sources) Vitamin TABS TAKE 1 TABLET DAILY DIRECTED. Quantity: 0 Refills: 0 Ordered: 14-Jan-2022 DO Activepromethazine hydrochloride 25 mg oral tablet (20 sources)PhenothiazineStart: 11-11-2023 End: 10-17-6687Bdrbjipdtahv 25 mg tablet Discontinued 25 MG PO November 11, 2023 12:00am November 12, 2023 1:31pm FreeTextSig: Oral; Note: Source Status: Not- TakingundefinedPRN; Qty: 60 Unspecified; Provider: Courtney Tabor ( )Start: 11-01-2022 End: 07-51-7829Vlmvyyftmwbo 12.5 mg suppository Discontinued 12.5 MG MA Q6H as needed for Nausea And Vomiting 2022 12:00am November 12, 2023 1:31pm Start: 01-20-2022 End: 56-40-1952epjz 1 tablet by mouth four times daily as needed for nausea and vomitingPromethazine 25 mg tablet Discontinued 25 MG PO Four times daily as needed for nausea and vomiting January 20, 2022 12:00am August 12, 2022 1:21pmStart: 03-03-2019 End: 65-03-7981oqij 1 tablet by mouth every eight hours as needed for nausea Promethazine 25 mg tablet Discontinued 25 MG PO Three times daily as needed for Nausea March 03, 2019 12:00am June 14, 2021 11:36am 1 Tablet by mouth every 8 hours as needed.Start: 55-00-7103zibifthylksq (PHENERGAN) 25 mg suppository Indications: Gastroparesis 1 Suppository by RECTAL routeevery 6 hours as needed. 180 Suppository 6 09/02/2018 ActiveStart: 19-32-3166azcjvj 50 mg by intramuscular injection every six hours as needed for nauseaPhenergan 50 mg/mL injectable solution 50 mg = 1 mL, IntraMuscular, q6hr, PRN for nausea/vomiting, # 10 mL, Refills(s) 0 Start Date: 11/15/13 Status: Ordered Quantity: 10.0 Unit: mL Repeat number: 1Comment on above:1 Suppository by RECTAL route every 6 hours as needed.pyridostigmine bromide 60 mg oral tablet (5 sources)Start: 11-11-2023 End: 83-80-4009rmgq 1 tablet by mouth twice dailyPyridostigmine [place] 60 mg tablet Discontinued 1 TAB PO Twice daily November 11, 2023 12:00am November 12, 2023 1:31pm FreeTextSi tablet Orally bid; Note: Source Status: Taking; Refills: 4; Qty: 180 Tablet; Provider: Courtney Tabor ( )rimegepant 75 mg disintegrating oral tablet (20 sources)Start: 03-30-2020 End: 75-04-3675nceu 1 tablet by mouth once daily as needed for headache Rimegepant (Nurtec Odt) 75 mg Tablet,Disintegrating Discontinued 75 MG PO Daily as needed for Headache March 30, 2020 12:00am June 14, 2021 11:36am sertraline 100 mg oral tablet (20 sources)Serotonin Reuptake InhibitorStart: 03-03-2019 End: 72-26-8964xxkw 2 tablets by mouth at bedtimeSertraline (Zoloft) 100 mg tablet Discontinued 200 MG PO Bedtime March 03, 2019 12:00am June 14, 2021 11:36amSucralfate (1 source)Aluminum ComplexStart: 11-11-2023 End: 72-16-3318dmpz 10 mL by mouth four times dailySucralfate Discontinued PO November 11, 2023 12:00am November 12, 2023 1:31pm FreeTextSi ml Orally qid; Note: Source Status: Taking; Refills: 3; Qty: 1200 ml; Provider: Courtney Tabor LSucralfate 100 mg/mL suspension (4 sources)Start: 11-11-2023 End: 83-95-7946ozoz 10 mL by mouth four times dailySucralfate 100 mg/mL suspension Discontinued PO November 11, 2023 12:00am November 12, 2023 1:31pm FreeTex tSi ml Orally qid; Note: Source Status: Taking; Refills: 3; Qty: 1200 ml; Provider: Courtney Tabor LStart: 11-11-2023 End: 76-37-8520tqdn 10 mL by mouth four times dailySucralfate 100 mg/mL suspension Discontinued PO November 10, 2023 11:00pm November 12, 2023 12:31pm FreeTe xtSi ml Orally qid; Note: Source Status: Taking; Refills: 3; Qty: 1200 ml; Provider: Courtney Tabor Lterconazole 80 mg vaginal insert (20 sources)Azole AntifungalStart: 06-26-2022 End: 07-99-3369Huwrsmzqbll 80 mg Suppository Discontinued 1 SUPP VAGINAL Daily at bedtime 7 7 June 26, 2022 1:00am July 15, 2022 12:20pmtiZANidine 4 mg oral tablet (20 sources)Central alpha-2 Adrenergic AgonistStart: 10-28-2022 End: 57-87-4892Adyiqglcre (Zanaflex) 4 mg Tablet Discontinued 5 MG PO Daily at bedtime October 28, 2022 12:00am December 11, 2022 9:37pm Per Pt. Report she takes 5 mg at HSStart: 47-66-8243icSBAettll HCl - 4 MG Oral Tablet Quantity: 180 Refills: 0 Ordered: 08-Oct-2020 DO Start : 08-Oct-2020 ActiveStart: 02-18-2020 End: 93-81-5373ykzw 1 tablet by mouth at bedtimeTizanidine (Zanaflex) 4 mg Tablet Discontinued 4 MG PO Bedtime September 03, 2022 12:00am September 28, 2022 7:25pmStart: 08-01-2019 End: 56-98-7064paal 1 tablet by mouth once daily at bedtimeTizanidine 2 mg Tablet Discontinued 2 MG PO Daily at bedtime August 01, 2019 1:00am August 29, 2019 11:16amtake 1 tablet by mouth once daily at bedtimetiZANidine (ZANAFLEX) 4 mg tablet Take 4 mg by mouth daily at bedtime. 0 ActiveComment on above:Take 4 mg by mouth daily at bedtime. topiramate 100 mg oral tablet (20 sources)Start: 08-01-2019 End: 77-15-5259wktc 1 tablet by mouth once daily at bedtimeTopiramate (Topamax) 100 mg Tablet Discontinued 100 MG PO Daily at bedtime August 01, 2019 1:00am February 18, 2020 5:44pmubrogepant 100 mg oral tablet (2 sources)ubrogepant (UBRELVY) 100 mg tablet Take 100 mg by mouth as needed. 0 ActiveComment on above:Take 100 mg by mouth as needed.24 hr venlafaxine 150 mg extended release oral capsule (20 sources)Serotonin and Norepinephrine Reuptake InhibitorStart: 07-15-2021 End: 42-37-3484dnbi 1 capsule by mouth once daily in the morningVenlafaxine (Effexor Xr) 150 mg capsule,extended release 24hr Discontinued 150 MG PO Every morning August 31, 2021 6:36pm July 02, 2022 10:23amStart: 07-09-2021 End: 90-70-2965uxeb 1 capsule by mouth once daily in the morningVenlafaxine 37.5 mg capsule,extended release 24hr Discontinued 37.5 MG PO Every morning July 09, 2021 1:00am July 15, 2021 10:32amStart: 06-18-2021 End: 86-94-8609yddn 1 capsule by mouth once daily in the morningVenlafaxine 75 mg capsule,extended release 24hr Discontinued 75 MG PO Every morning July 09, 2021 6:38pm July 15, 2021 10:32amvitamin b12 1 mg oral tablet (20 sources)Vitamin F45Ogimr: 11-01-2022 End: 02-43-4476yyux 1 tablet by mouth once daily in the morningCyanocobalamin (Vitamin B-12) 1,000 mcg Tablet Discontinued 1000 MCG PO Every morning November 01, 2022 12:00am November 12, 2023 1:29pmStart: 02-21-2020 End: 99-47-2070jkxr 1 tablet by mouth once daily in the morningCyanocobalamin (Vitamin B-12) 1,000 mcg Tablet Discontinued 1000 MCG PO Every morning February 21, 2020 12:00am June 14, 2021 11:35amwitch marv 500 mg/ml medicated pad (12 sources)Start: 08-13-2022 End: 34-20-8428Ugtyukxp-Witch Marv (A.E.R. Witch Marv) 12.5-50 % Pads, Medicated Discontinued 1 PAD TOPICAL PRN as needed for Discomfort August 13, 2022 1:00am September 03, 2022 7:39pm Problems Active Problems Problem ClassificationProblemDateDocumented DateEpisodic/ChronicAbdominal pain (20 sources)Abdominal pain; 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: [Unspecified abdominal pain]Onset: 476268-45-4387HdggciazXphhbdocfooaxr/social admission (20 sources)Follow-up status; 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: [Other specified counseling] 20-99-3843ZzkkwmevOqvnjfh disorders (20 sources)Mixed anxiety and depressive disorder; 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: [Other specified anxiety disorders]Onset: 589657-38-4670LgpccrkZyvwknd dysrhythmias (20 sources)Sinus node dysfunction; 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: [Sinoatrial node dysfunction] Onset: 18-42-6979OdqnwssUpxcoysheujwx of surgical procedures or medical care (2 sources)Finding of gastrointestinal device; 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: [Enterostomy malfunction]Onset: 855477-80-6598RhnibgiHoofzsdnpi disorders (20 sources)Complete atrioventricular block; 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: [Atrioventricular block, complete]Onset: 610981-01-2793CxjcoigMwgrqrlgig and other anemia (1 source)Anemia, unspecified; 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: [Anemia, unspecified]12-11-2021 EpisodicDelirium, dementia, and amnestic and other cognitive disorders (20 sources)Delirium; 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: [Delirium due to known physiological condition]11-44-0844NhhvsgkNbdlbgfowc disorders (20 sources)Eosinophilic esophagitis; 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: [Eosinophilic esophagitis] Onset: 316049-68-0793GgcimxyLwcsa and electrolyte disorders (20 sources)Dehydration; 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: [Dehydration]Onset: EpisodicGenitourinary symptoms and ill-defined conditions (20 sources)Joseph hematuria; 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: [Nocturia]Onset: EpisodicHeadache; including migraine (20 sources)Headache; 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: [Headache]Onset: EpisodicImmunizations and screening for infectious disease (20 sources)Exposure to Human immunodeficiency virus; 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: [Contact with and (suspected) exposure to human immunodeficiency virus [HIV]]07-18-2021 EpisodicMenstrual disorders (2 sources)Menorrhagia; 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: [Excessive and frequent menstruation with regular cycle]Onset: 21-55-1849DifzafvLbkw disorders (20 sources)Major depression with psychotic features; 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: [Major depressive disorder, single episode,severe with psychotic features]Onset: 580453-12-8851VgoqgkgFhpwdb and vomiting (20 sources)Intractable nausea and vomiting; 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: [Nausea with vomiting, unspecified]Onset: 925049-95-9374XuoxgjdyMcwdxdy system congenital anomalies (4 sources)Chiari xzhvaierikfv62-07-9802PvkqfayCoyfffmznab chest pain (20 sources)Chest pain; 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: [Chest pain, unspecified]12-13-2020 EpisodicNutritional deficiencies (20 sources)Deficiency of macronutrients; 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: [Mild protein-calorie malnutrition]Onset: 165404-72-3527DwhvifqVschwksppjs deficiencies (20 sources)Cobalamin deficiency; 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: [Deficiency of other specified B group vitamins]23-94-5771DytbetsfFefty aftercare (11 sources)Patient encounter status; 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: [Encounter for therapeutic drug level monitoring]Onset: 69-58-9996QlguqrnfCiizf aftercare (1 source)Other terminal operations supervisor (current) drug therapy; 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: [OTH SHELTER CURRENT DRUG THERAPY]Onset: 51-46-5863GhrchfrbAabmf aftercare (1 source)Long-term current use of anticoagulant; 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: [retirement (current) use of anticoagulants]Onset: 93-68-7899MtfbnntnKnqfg circulatory disease (1 source)Device in situ; 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: [Presence of other vascular implants and grafts]43-09-9924YszcbtdCsstp circulatory disease (1 source)Presence of other vascular implants and grafts; 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: [Other postprocedural status]08-39-8153JdlhvcsWdcav complications of (4 sources)Advanced maternal age xeybczu66-04-1489RvfblmpqGbipn diseases of bladder and urethra (7 sources)Urethral rkukdvsah18-45-3100KxjufnojCbgtj diseases of bladder and urethra (3 sources)Male urethral stricture; 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: [Unspecified urethral stricture, male, unspecified site]Onset: 72-03-6309QsbpmthgWmulf diseases of kidney and ureters (20 sources)Renal mass; 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: [Other specified disorders of kidney and ureter]Onset: 48-44-734332214695-10-3915GyafgzaMjolf diseases of kidney and ureters (3 sources)Disorder of kidney and/or ureter; 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: [Other specified disorders of kidney and ureter]Onset: 31-07-4733JblikqoEhbsx diseases of kidney and ureters (1 source)Other specified disorders of kidney and ureter; 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: [Other specified disorders of kidney and ureter]Onset: 55-95-9183EbbjxgyOevpb disorders of stomach and duodenum (20 sources)Gastroparesis syndrome; 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: [Gastroparesis]Onset: 344152-82-9220TxlunoajAoreryn on above:s/p gastrectomyOther disorders of stomach and duodenum (9 sources)Gastroparesis; 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: [Gastroparesis]Onset: 10-20-2022 19-28-1113YkidbmzdCzoqj female genital disorders (2 sources)Vaginal bleeding; 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: [Abnormal uterine and vaginal bleeding, unspecified]Onset: 688608-01-8764OksctcaPmzfp gastrointestinal disorders (4 sources)History of intubation of gastrointestinal tract via jejunostomy 26-22-3334PwlajfiTdnzc infections; including parasitic (8 sources)Infection by Sfzfiaunpcf97-46-4751SsfenyabBdrbe injuries and conditions due to external causes (8 sources)Injury of mmpy54-70-5194RizniqysSwqhs lower respiratory disease (9 sources)Dyspnea; 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: [Shortness of breath]EpisodicOther nervous system disorders (20 sources)Benign intracranial hypertension; 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: [Benign intracranial hypertension]Onset: 518044-28-3656ZduweamXkbug nervous system disorders (20 sources)Chiari malformation type I; 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: [Compression of brain] Onset: 265076-73-1210TdopvnlXqxru nervous system disorders (4 sources)Compression of brain; 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: [Compression of brain]08-02-2022 ChronicOther nervous system disorders (20 sources)Disturbance in speech; 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: [Other speech disturbances] 84-99-1198IjkqdifoKsnsh nutritional; endocrine; and metabolic disorders (13 sources)Body mass index 40+ - severely obese; 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: [Morbid (severe) obesity due to excess calories]Onset: 460025-28-2938ChlqhwxZsjsp nutritional; endocrine; and metabolic disorders (2 sources)Obese class II; 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: [Obesity, unspecified]Onset: 04-21-2019 52-46-2506IrrcfdgEeknw nutritional; endocrine; and metabolic disorders (10 sources)Obesity; 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: [Obesity, unspecified]ChronicOther nutritional; endocrine; and metabolic disorders (20 sources)Body mass index 30+ - obesity; Translations: [Body mass index (BMI) 35.0-35.9, adult]77-23-5890SogbvfwQymxi nutritional; endocrine; and metabolic disorders (1 source)Body mass index (BMI) 35.0-35.9, adult; Translations: [Body Mass Index 35.0-35.9, adult]38-34-7874BvpaszbOmszf and delivery including normal (20 sources); Translations: [ state, incidental]12-10-2021 EpisodicOvarian cyst (20 sources)Cyst of ovary; Translations: [Unspecified ovarian cyst, unspecified side]03-64-3299DcayccapGquucityk heart disease (5 sources)Other pulmonary embolism without acute cor pulmonale; Translations: [Pulmonary embolism]Onset: 876737-99-8521KtylhcgdNyaolmmf codes; unclassified (20 sources)Altered mental status; Translations: [Altered mental status, unspecified]Onset: 406847-20-6494ZadcthcfIcvyahar codes; unclassified (9 sources)Non-smoker; Translations: [Other specified conditions influencing health status]EpisodicResidual codes; unclassified (20 sources)H/O: hypertension; Translations: [Personal history of other complications of , childbirth and the puerperium]71-29-4307Qajesfuf Residual codes; unclassified (20 sources)Hallucinations; Translations: [Hallucinations, unspecified] 30-40-8167FrkvkuyiGdowaovh codes; unclassified (10 sources)Personal history of other complications of , childbirth and the puerperium; Translations: [Personal history of other genital system and obstetric disorders]35-43-2061HxobjukxRamgbrjm codes; unclassified (5 sources)Hallucinations, unspecified; Translations: [Hallucinations]07-17-2022 EpisodicResidual codes; unclassified (20 sources)Auditory hallucinations; Translations: [Auditory hallucinations] 44-67-1159NcshatuiGlamnvqt codes; unclassified (9 sources)Auditory hallucinations; Translations: [Hallucinations]09-07-2022 EpisodicSchizophrenia and other psychotic disorders (20 sources)Psychotic disorder; Translations: [Unspecified psychosis not due to a substance or known physiological condition]12-22-6074BouzlqhEzivgqu and intentional self-inflicted injury (20 sources)Suicidal thoughts; Translations: [Suicidal ideations]08-31-2021 EpisodicUnclassified (18 sources)Advanced maternal age ; Translations: [Advanced maternal age affecting , antepartum]34-17-3407Okjpxgwzwqqf (17 sources)Chiari malformation; Translations: [Chiari malformation]12-13-2020 Unclassified (3 sources)Drug therapy uozdwkj74-31-0238Gbazrzt tract infections (16 sources)Chronic cystitis; Translations: [Other chronic cystitis without hematuria]Onset: 457322-65-6683AktznurQjsohmr tract infections (20 sources)Urinary tract infectious disease; Translations: [Urinary tract infection, site not specified]Onset: 659092-68-6031Somkianv Past or Other Problems Problem ClassificationProblemDateDocumented DateEpisodic/ChronicBlindness and vision defects (2 sources)Abnormal vision; Translations: [Unspecified visual disturbance]Onset: 786790-66-7320IhdhehsfJwkdtmd dysrhythmias (20 sources)Sinus bradycardia; Translations: [Other specified cardiac dysrhythmias]Onset: 437800-34-0215KnpfvervHtqcbjieafdz of device; implant or graft (1 source)Other mechanical complication of infusion catheter, initial encounter; Translations: [Other mechanical complication of infusion catheter, initial encounter]Onset: 28-85-0208ZmdpkeyeBufocgkufa and other anemia (20 sources)Anemia; Translations: [Anemia, unspecified]Onset: 10-24-2013 88-26-6912FnuseuqiOxkjoxld; convulsions (16 sources)Seizure; Translations: [Unspecified convulsions]Onset: 06-08-2023 50-51-1451NbehfpykNwxkfixbsz disorders (2 sources)Esophagitis; Translations: [Esophagitis]Onset: EpisodicOther connective tissue disease (2 sources)Swelling of left upper limb; Translations: [Other specified soft tissue disorders]Onset: 422451-18-0956BypwvmaoNyfrp disorders of stomach and duodenum (2 sources)Pyloric stenosis; Translations: [Adult hypertrophic pyloric stenosis] Onset: 130849-23-6198FxlweuhwHmugu gastrointestinal disorders (2 sources)Constipation; Translations: [Constipation, unspecified]Onset: 016056-32-5610XtlirbimFfpfm gastrointestinal disorders (2 sources)Gastric anastomotic stricture; Translations: [Disease of digestive system, unspecified]Onset: 596845-64-6887JmgqxkbtBnfet lower respiratory disease (1 source)Shortness of breath; Translations: [Shortness of breath]Onset: 07-46-7491YfsqnateYzsblaxmr; thrombophlebitis and thromboembolism (14 sources)Acute deep venous thrombosis of left axillary vein; Translations: [Acute embolism and thrombosis ofleft axillary vein]Onset: EpisodicResidual codes; unclassified (2 sources)Edema of the upper extremity ; Translations: [Localized edema]Onset: 86-65-9801TfqrdrtvKzgrxlzs codes; unclassified (2 sources)History of partial gastrectomy; Translations: [Acquired absence of stomach [part of]]Onset: 002862-14-3855WvipwhhyFmgoynqjumx; intervertebral disc disorders; other back problems (20 sources)Neck pain; Translations: [Cervicalgia]Onset: EpisodicSyncope (20 sources)Syncope; Translations: [Syncope and collapse]Onset: 01-20-2023 16-35-1609BgwgwbwkLiverpjjkwab (17 sources)History of intubation of gastrointestinal tract via jejunostomy; Translations: [History of jejunostomy tube placement]07-14-2021 Results Test NameValueInterpretationReference RangeFacilityAmbulatory Visit Summaryon 71-08-5560Jpkbsfclkm Visit SummaryAmbulatory Visit Summary MARICARMEN ANDERSON :1980 Visit Date:01/02/2025 Ambulatory Visit Instructions Your Diagnosis Urethral stricture Your Care Team Attending Physician - ESTELA CHUNG PA-C Primary Care Physician - VIKTOR BRADFORD MD Referring Physician - FELICE PATINO, Michael Johnson This Is Your Medications List aripiprazole (aripiprazole 30 mg oral tablet) ondansetron (Zofran) promethazine (Phenergan 50 mg/mL injectable solution) trazodone (traZODONE 50 mg Tab) Procedures Performed Cystourethroscopy with dilation of urethral stricture (12/09/2022), Cystourethroscopy with dilationof urethral stricture (02/19/2021), Appendectomy, Cholecystectomy, Pacemaker care. [...] mL injectable solution) 1 Milliliter Intramuscular Every 6hours as needed for for nausea/vomiting Unchanged trazodone [...] signed up for this yet, please contact Red Aril at [phone] to get signed up today. Language Information Language assistance services are available as needed. [facility] [id number] Office/Clinic NoteUrology Office/Clinic Note Chief Complaint 6 month f/u HPI Staff 44 year old female 6 month F/U AAP CYSTO Previous Dx: Incomplete bladder emptying, urethral stricture, chronic cystitis w/o hematuria, renalmass BBSQ score today is 9. Urinates every 1-2 hours. Nocturia x2. Rarely has urgency or leakage. Deniesany visible blood or pain of any kind. [...] cysto., # 2 tab(s), Refills(s) 0, Pharmacy: [facility]/pharmacy #[id number], 167, cm, 04/28/23 10:12:00 EST, Height/Length Dosing, 111, kg, 04/28/23 10:12:00 EST, Weight Dosing 78413 Measure Post Void residual urine and/or bladder capacity by US- non-imaging E&M of Est. Patient Low 20-29 Min 69510 Urnls Dip Stick Auto w/o Microscopy POC 20518 2. Incomplete bladder emptying (R33.9: Retention of urine, unspecified) PVR (cc): 04/09/21 - 58 09/03/22 - 254 04/27/23 - 161 06/02/24 - 286 Today - 74ml. Improved. Recommend timed voids and double void maneuvers. Ordered: E&M of Est. Patient Low 20-29 Min 96856 3. 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 Abd MRI 01/21/23 [facility] [place] septated T2 hyperintense lesion involving superior pole of L kidney measuring up to 9mm (does not appear to enhance on postcontrast imaging). An additional subcentimeter T2 hyperintense lesion involving inferior pole of L kidney measuring up to about 4mm (too small for accurate characterization). R kidney unremarkable. CRESCENCIO 05/30/24 [facility] [place] - cystic changes with questionable kidney stones. CT 07/04/24 - no evidence of prior lesion. Resolved. No further imaging indicated. Ordered: E&M of Est. Patient Low 20-29 Min 69699 Follow-up With When Contact Information [facility] Additional Instructions: Only if needed/new problems arise. [...] dilation of urethral stricture (12/09/2022), Cystourethroscopy with dilationof urethral stricture (02/19/2021), Appendectomy, Cholecystectomy, Pacemaker care. [...] Protein Urine Dipstick: Negative (01/02/25 08:30:00) Specific [place] Urine Dipstick: 1.015 (01/02/25 08:30:00) Urine Appearance Urine Dipstick: Slightly cloudy (01/02/25 08:30:00) Urine Color Urine Di (more content not included)...[facility] HospitalComment on above:Result Comment: Electronically Signed By: ESTELA CHUNG PA-C\Date and Time Signed: 01/02/2510:35 EDTBasic Metabolic Panelon 43-54-9214Hjjzz gap [Moles/Vol]10.7 mmol/LNormal6.0-15.0The [facility] Physician GroupComment on above:Performed By: #### BMP, PT, PTT #### [facility] [address] [place] [address] USACalcium [Mass/Vol]8.8 mg/dLNormal8.6-10.3The [facility] Physician GroupComment on above:Performed By: #### BMP, PT, PTT #### [facility] [address] [place] [address] USAChloride [Moles/Vol]106 mmol/HMemhlj53-710Hws [facility] Physician GroupComment on above:Performed By: #### BMP, PT, PTT #### [facility] [address] [place] [address] USACO2 [Moles/Vol]24.9 mmol/IGmbyxj73.0-31.0The [facility] Physician GroupComment on above:Performed By: #### BMP, PT, PTT #### [facility] [address] [place] [address] USACreatinine [Mass/Vol]0.92 mg/dLNormal0.60-1.20The [facility] Physician GroupComment on above:Performed By: #### BMP, PT, PTT #### [facility] [address] [place] [address] USACreatinine Clr Calc Iwtdgfqe861.07NormalThGritman Medical Center Physician GroupComment on above:Result Comment: PERFORMED BY: [place] [address] PATHOLOGIST HAND BUFFING WHEEL FORMER KANDACE CANTU M.D.Performed By: #### BMP, PT, PTT #### [place] [address] USAGFR/1.73 sq M.predicted MDRD (S/P/Bld) [Vol rate/Area] mL/min/{1.73_m2}NormalThe [facility] Physician GroupComment on above:Performed By: #### BMP, PT, PTT #### [place] [address] USAGlucose [Mass/Vol]99 mg/mEUjjwjo08-758Vzo [facility] Physician GroupComment on above:Result Comment: Random Glucose Reference Range is dependent on time and content of last meal. Glucose of more than 200 mg/dL in a nonstressed, ambulatory subject supports the diagnosis of Diabetes Mellitus. ADA recommended reference rangePerformed By: #### BMP, PT, PTT #### [place] [address] USAPotassium [Moles/Vol]3.6 mmol/LNormal3.5-5.1The [facility] Physician GroupComment on above:Performed By: #### BMP, PT, PTT #### [place] [address] USASodium [Moles/Vol]138 mmol/GHrxcfp901-537Bza [facility] Physician GroupComment on above:Performed By: #### BMP, PT, PTT #### [facility] [address] [place] [address] USAUrea nitrogen [Mass/Vol]11 mg/dLNormal7-25The [facility] Physician GroupComment on above:Performed By: #### BMP, PT, PTT #### [facility] [address] [place] [address] USABasophils Auto (Bld) [#/Vol]Ordered By: Franc Barlow on 12-72-3861Vrldytzgx (Bld) [#/Vol]Automated basophil count0.0-0.2FThe Jewish HospitalBasophils/100 WBC Auto (Bld)Ordered By: Franc Barlow on 31-07-8101Wggfrosjw/100 WBC (Bld)Automated basophil %.[facility] HospitalCalcium [Mass/volume] in Serum or PlasmaOrdered By: Franc Barlow on 82-93-0332Kzgaadt [Mass/Vol]Calcium [Mass/volume] in Serum or Plasma8.6-10.3 [facility] HospitalCarbon dioxide, total [Moles/volume] in Serum or PlasmaOrdered By: Franc Barlow on 03-40-2963EB7 [Moles/Vol]Carbon dioxide, total [Moles/volume] in Serum or Tmquci02.0-31.0The [facility] HospitalChloride [Moles/volume] in Serum or PlasmaOrdered By: Franc Barlow on 09-59-9715Vatycoxf [Moles/Vol]Chloride [Moles/volume] in Serum or Niypsb63-056 [facility] HospitalComplete Blood Count Auto Diffon 11-17-2024 Basophils (Bld) [#/Vol]0.1 10*3/uLNormal0.0-0.2The [facility] Comment on above:Result Comment: PERFORMED BY: [facility] [address] [place] [address] PATHOLOGIST HAND BUFFING WHEEL FORMER KANDACE CANTU M.D.Performed By: #### CBC #### [facility] [address] [place] [address] USABasophils/100 WBC (Bld)1.4 %Normal.The [facility] Physician GroupComment on above:Performed By: #### CBC #### [facility] [address] [place] [address] USAEosinophils (Bld) [#/Vol]0.1 10*3/uLNormal0.0-0.45The [facility] Physician GroupComment on above:Performed By: #### CBC #### [place] [address] USAEosinophils/100 WBC (Bld)2.4 %Normal.The [facility] Physician GroupComment on above:Performed By: #### CBC #### [place] [address] USAErythrocyte distribution width (RBC) [Ratio]13.7 %Normal 11.9-15.3The [facility] Physician GroupComment on above:Performed By: #### CBC #### [place] [address] USAHematocrit (Bld) [Volume fraction]40.0 %Wvacdn13.0-46.4The [facility] Physician GroupComment on above:Performed By: #### CBC #### [place] [address] USAHemoglobin (Bld) [Mass/Vol]14.0 g/nYIqaldj49.8-15.4The [facility] Physician GroupComment on above:Performed By: #### CBC #### [place] [address] USALymphocytes (Bld) [#/Vol]1.2 10*3/uLNormal1.00-4.8The [facility] Physician GroupComment on above:Performed By: #### CBC #### [place] [address] USALymphocytes/100 WBC (Bld)30.9 %Normal.The [facility] Physician GroupComment on above:Performed By: #### CBC #### [place] [address] USAMCH (RBC) [Entitic mass]34.4 uvIome43.7-34.3The [facility] Physician GroupComment on above:Performed By: #### CBC #### [address]V (RBC) [Entitic vol]98.0 vTOqjisr17-124Nba [facility] Physician GroupComment on above:Performed By: #### CBC #### [place] [address] USAMean Corpuscular HGB Conc35.1 g/hXWack91.0-35.0The [facility] Physician GroupComment on above:Performed By: #### CBC #### [place] [address] USAMonocytes (Bld) [#/Vol]0.5 10*3/uLNormal0.0-0.8The [facility] Physician GroupComment on above:Performed By: #### CBC #### [place] [address] USAMonocytes/100 WBC (Bld)12.7 %Normal.The [facility] Physician GroupComment on above:Performed By: #### CBC #### [place] [address] USANeutrophils (Bld) [#/Vol]2.1 10*3/uLNormal1.8-7.7The [facility] Physician GroupComment on above:Performed By: #### CBC #### [place] [address] USANeutrophils/100 WBC (Bld)52.6 %Normal.The [facility] Physician GroupComment on above:Performed By: #### CBC #### [place] [address] USANRBC%0.1 /100{WBC}Normal0-0.5The [facility] Comment on above:Performed By: #### CBC #### [place] [address] USAPlatelet mean volume (Bld) [Entitic vol]7.0 fLNormal 6.3-10.7The [facility] Physician GroupComment on above:Performed By: #### CBC #### [facility] [address] [place] [address] USAPlatelets (Bld) [#/Vol]199 10*3/dTIzsgxf938-373Klh [facility] Physician GroupComment on above:Performed By: #### CBC #### [facility] [address] [place] [address] USARBC (Bld) [#/Vol]4.08 10*6/uLNormal3.60-5.00The [facility] Physician GroupComment on above:Performed By: #### CBC #### [facility] [address] [place] [address] USAWBC (Bld) [#/Vol]3.9 10*3/uLNormal3.8-11.6The [facility] Physician GroupComment on above:Performed By: #### CBC #### [place] [address] USACreatinine [Mass/volume] in Serum or PlasmaOrdered By: Franc Barlow on 74-78-5062Ziidmxajuk [Mass/Vol]Creatinine [Mass/volume] in Serum or Plasma0.60-1.20The [facility] HospitalECG 12 lead ECGon 08-28-2916CSV 12 lead ECGSAMARITAN NORTH [facility]ENTER Main [address] [place] [address] Electrocardiograph Report Signed Patient: Maricarmen Anderson MR#: [id number] : 1980 Acct:[id number] Age/Sex: 44 / F ADM Date: 11/17/24 Loc: [place] Room: Type: [facility] Attending Dr: Gaurav Oliver MD Ordering Provider: [...] are now present Confirmed by Palomo Manzo ([id number]) on 11/17/2024 7:13:41 PM Referred By: Electronically Signed By: Palomo Manzo Transcribed By: MUS Signed By Palomo Manzo MD 11/17/241912[facility] Physician GroupEosinophils Auto (Bld) [#/Vol] Ordered By: Franc Barlow on 06-78-2547Xuhqhripjqd (Bld) [#/Vol]Automated eosinophil count0.0-0.45The [facility] HospitalEosinophils/100 WBC Auto (Bld)Ordered By: Franc Barlow on 53-18-1572Xkpdwfbbmxh/100 WBC (Bld) Automated eosinophil %.[facility] HospitalErythrocyte distribution width Auto (RBC) [Ratio]Ordered By: Franc Barlow on 10-81-1472Gqkpxzhickr distribution width (RBC) [Ratio]Erythrocyte distribution width [Ratio] by Automated count11.9-15.3FThe Jewish HospitalGlucose [Mass/volume] in Serum or PlasmaOrdered By: Franc Barlow on 93-67-8738Cuksqed [Mass/Vol] Glucose [Mass/volume] in Serum or Ycmvvh45-554ErqrzxmneThe [facility] Comment on above:ADA recommended reference rangeRandom Glucose Reference Range is dependent on time and content of last meal. Glucose of more than 200 mg/dL in a nonstressed, ambulatory subject supports the diagnosisof Diabetes Mellitus. HCG ( test) IA.rapid Ql (U)Ordered By: Franc Barlow on 57-58-6478JSN ( test) Ql (U)Urine human chorionic gonadotropin (hCG) detection by immunoassayThe Christ HospitalHCG,Urineon 21-53-2491Iouk HCG ( test) Ql (U)NegativeNoCone Health Physician GroupComment on above:Result Comment: PERFORMED BY: [facility] [address] [place] [address] PATHOLOGIST HAND BUFFING WHEEL FORMER KANDACE CANTU M.D.Performed By: #### UHCG #### [facility] [address] [place] [address] USAHematocrit Auto (Bld) [Volume fraction]Ordered By: Franc Barlow on 02-38-5848Vbnmntzpig (Bld) [Volume fraction]Hematocrit [Volume Fraction] of Blood by Automated count34.0-46.4FThe [facility] Hospital Hemoglobin [Mass/volume] in BloodOrdered By: Franc Barlow on 11-17-2024 Hemoglobin (Bld) [Mass/Vol]Hemoglobin [Mass/volume] in Blood11.8-15.4FThe Jewish HospitalINR in Platelet poor plasma by Coagulation assayOrdered By: Franc Barlow on 43-55-9400UWV Coag (PPP) [Relative time]INR in Platelet poor plasma by Coagulation assayThe Christ HospitalComment on above:INR Therapeutic Range A) Pre- and Peroperative OAT started two weeks before surgery. NOT HIP SURGERY: 1.5 - 2.5 HIP SURGERY: 2 - 3B) Primary and secondary prevention of venous THROMBOSIS: 2 - 3C) Active venous thrombosis, pulmonary embolismand prevention of recurrent venous thrombosis: 2 - 3D) Preve ntion of arterial thromboembolismincluding patients with mechanical heart valves: 3 - 4.5Lon 11-17-2024L Specimen: [id number] Received: 11/17/24 Status: ABRAM Fox Num: [id number] Spec Type: Surgical Subm Dr: Gaurav Oliver MD Tissues: A Gross Only (INFUSAPORT) Procedures: Level 1 Gross Age/ Patient Sex Location Account Attending Physician aMricarmen Anderson 44/F [place] [id number] Gaurav Oliver MD SPEC NUM: [id number] RECD: 11/17/24 STATUS: ABRAM FOX NUM: [id number] ALEN: 11/17/24-[address]: Gaurav Oliver MD ENTERED: 11/17/[address] [facility] [address]: CECLIIO TYPE: Surgical DEPT: S ENTERED BY: [id number] RECV BY: [id number] ORDERED: Level 1 Gross ORDERED: Level 1 Gross Pathological Diagnosis Replacement removal of the nonfunctioning medical unit secretary: -An Intact piece of Cpouxg-p-Kbkr. Gross only examination Clinical Information Nonfunctioning Utqyfb-w-Zkpp Gross Description Part A is received fresh labeled with the patients name, date of , and Gjnlkt-a-Dsvx is a white, plastic like disc, 2.2 cm in diameter by 1.1 cm in thickness. 1 surface of the specimen displays a rubbery, translucent, somewhat depressible center, 0.9 cm in diameter that is engraved CT . The opposing surface of the specimen is engraved PORT-A-CATH [id number] . Extending from the disc is a cylindrical segment of white rubbery tubing, 25 cm in length by 0.3 cm in diameter that is engraved with the numerals 10 and 20. GROSS ONLY- Gross photographs are taken Specimen: [id number] Received: 11/17/24 Status: ABRAM Millercandi Num: [id number] Spec Type: Surgical Subm Dr: Gaurav Oliver MD Tissues: A Gross Only (INFUSAPORT) Procedures: Level 1 Gross Patient: Maricarmen Anderson [id number] (Continued) Specimen: [id number] Received: 11/17/24 (Continued) Signed (signature on file) Jose Rivers MD 11/18/24 1421 Specimen: [id number] Received: 11/17/24 Status: ABRAM Fox Num: [id number] Spec Type: Surgical Subm Dr: Gaurav Oliver MD Tissues: A Gross Only (INFUSAPORT) Procedures: Level 1 Gross Patient: Maricarmen Anderson [id number] (Continued) Specimen: [id number] Received: 11/17/24 (Continued) Microscopic Description Not provided CPT Codes 24781 GROSS PHOTO GROSS PHOTO Specimen: [id number] Received: 11/17/24 Status: ABRAM Fox Num: [id number] Spec Type: Surgical Subm Dr: Gaurav Oliver MD Tissues: A Gross Only (INFUSAPORT) Procedures: Level 1 Gross Patient: Maricarmen Anderson [id number] (Continued) Signed (signature on file) Jose Rivers MD 11/18/[address] [place] [address] Physician GroupLeukocytes [#/volume] corrected for nucleated erythrocytes in Blood by Automated counOrdered By: Franc Barlow on 62-35-4800UFS corrected for nucl RBC Auto (Bld) [#/Vol]Leukocytes [#/volume] corrected for nucleated erythrocytes in Blood by Automated coun3.8-11.6FThe Jewish HospitalLymphocytes Auto (Bld) [#/Vol]Ordered By: Franc Barlow on 19-57-0853Qxdluzacggv (Bld) [#/Vol]Lymphocytes [#/volume] in Blood by Automated count1.00-4.8The [facility] HospitalLymphocytes/100 WBC Auto (Bld)Ordered By: Franc Barlow on 30-99-1861Jharslewnio/100 WBC (Bld) Lymphocytes/100 leukocytes in Blood by Automated count.The [facility] HospitalMCH Auto (RBC) [Entitic mass]Ordered By: Franc Barlow on 25-55-9804BMQ (RBC) [Entitic mass]MCH [Entitic mass] by Automated countHigh 24.7-34.3FThe Jewish HospitalMCHC Auto (RBC) [Mass/Vol]Ordered By: Franc Barlow on 48-54-0788XUHN (RBC) [Mass/Vol]MCHC [Mass/volume] by Automated ayrzwJrea96.0-35.0[facility] HospitalMCV Auto (RBC) [Entitic vol] Ordered By: Franc Barlow on 00-74-6430IRD (RBC) [Entitic vol]MCV [Entitic volume] by Automated btgfu68-082OxdfklfqjThe Christ HospitalMonocytes Auto (Bld) [#/Vol]Ordered By: Franc Barlow on 82-71-3697Actgjxgop (Bld) [#/Vol] Automated blood monocyte count0.0-0.8[facility] Monocytes/100 WBC Auto (Bld)Ordered By: Franc Barlow on 11-17-2024 Monocytes/100 WBC (Bld)Automated monocyte %.[facility] Neutrophils Auto (Bld) [#/Vol]Ordered By: Franc Barlow on 11-17-2024 Neutrophils (Bld) [#/Vol]Neutrophils [#/volume] in Blood by Automated count 1.8-7.7FThe Jewish HospitalNeutrophils/100 WBC Auto (Bld)Ordered By: Franc Barlow on 08-00-1111Pduyzubredj/100 WBC (Bld)Automated neutrophil %. The [facility] HospitalNo Panel InformationOrdered By: Franc Barlow on 52-54-2440Zqsawbusj GFR (CKD-EPI)> 60.0 mL/MinThe Christ HospitalPharmacy Creatinine Clearance (Txak237.07[facility] Nucleated erythrocytes [Presence] in Blood by Automated countOrdered By: Franc Barlow on 47-10-3134Ljdgeyjuk RBC Auto Ql (Bld)Nucleated erythrocytes [Presence] in Blood by Automated count0-0.5FThe [facility] Hospital Partial Thromboplastin Timeon 54-38-5822cLSW Coag (Bld) [Time]25.8 sNormal 25.1-36.5The [facility] Physician GroupComment on above:Result Comment: A hematocrit value greater than 55% may lead to inaccurate results in coagulation testing. Patients having hematocrit values >55% require a special collection tube for coagulation studies. Please contact the laboratory at [phone] for redraw instructions. PERFORMED BY: [address] [address] PATHOLOGIST HAND BUFFING WHEEL FORMER KANDACE CANTU M.D.Performed By: #### BMP, PT, PTT #### [facility] [address] [place] [address] USAPlatelet mean volume Auto (Bld) [Entitic vol]Ordered By: Franc Barlow on 82-42-8471Jmxvziws mean volume (Bld) [Entitic vol]Platelet mean volume [Entitic volume] in Blood by Automated count6.3-10.7FThe Jewish HospitalPlatelets Auto (Bld) [#/Vol]Ordered By: Franc Barlow on 78-23-0767Wcpwhqwoi (Bld) [#/Vol]Platelets [#/volume] in Blood by Automated ukqsd118-732SywfbtjyjThe Christ HospitalPotassium [Moles/volume] in Serum or PlasmaOrdered By: Franc Barlow on 38-36-0834Ysrueonpq [Moles/Vol]Potassium [Moles/volume] in Serum or Plasma3.5-5.1FThe [facility] Hospital Prothrombin Time INRon 23-48-5940PBY Coag (PPP) [Relative time]1.2 {INR}Normal The [facility] Physician GroupComment on above:Result Comment: INR Therapeutic Range A) Pre- and [...] patients with mechanical heart valves: 3 - 4.5Performed By: #### BMP, PT, PTT #### [facility] [address] [place], [place] [address] USAPT Coag (PPP) [Time]13.1 sHigh9.0-12.9The [facility] Physician GroupComment on above:Result Comment: A hematocrit value greater than 55% may lead to inaccurate results in coagulation testing. Patients having hematocrit values >55% require a special collection tube for coagulation studies. Please contact the laboratory at [phone] for redraw instructions.Performed By: #### BMP, PT, PTT #### [facility] [address] [place] [address] USAProthrombin time (PT)Ordered By: Franc Barlow on 79-53-5778TB Coag (PPP) [Time]Prothrombin time (PT)High9.0-12.9The [facility] HospitalComment on above:A hematocrit value greater than 55% may lead to inaccurate results in coagulation testing. Patientshaving hematocrit values >55% require a special collection tube for coagulation studies. Please c ontact the laboratory at [phone] for redraw instructions.RBC Auto (Bld) [#/Vol]Ordered By: Franc Barlow on 69-28-0759LGI (Bld) [#/Vol]Erythrocytes [#/volume] in Blood by Automated count3.60-5.00[facility] Serum or plasma anion gap determinationOrdered By: Franc Barlow on 11-17-2024 Anion gap [Moles/Vol]Serum or plasma anion gap determination6.0-15.0[facility], Cancer Centerodium [Moles/volume] in Serum or PlasmaOrdered By: Franc Barlow on 37-24-5888Yjhlzo [Moles/Vol]Sodium [Moles/volume] in Serum or Yqbtkw391-732FgxvoadniThe Christ HospitalUrea nitrogen [Mass/volume] in Serum or PlasmaOrdered By: Franc Barlow on 49-96-4856Dlgo nitrogen [Mass/Vol] Urea nitrogen [Mass/volume] in Serum or Plasma7-25The [facility] HospitalWBC Auto (Bld) [#/Vol]Ordered By: Franc Barlow on 68-58-8973TQZ (Bld) [#/Vol]Leukocytes [#/volume] in Blood by Automated count3.8-11.6FThe Jewish HospitalX-ray reportOrdered By: Adam Escamilla on 99-10-4109Dlaeu reportSAMARITAN NORTH HEALTH CENTER Main [address] [place] [address] XRay Report Signed Patient: Maricarmen Anderson MR#: [id number] : 1980 Acct:[id number] Age/Sex: 44 / F ADM Date: 5 Loc: [place] Room: Type: [facility] Attending Dr: Gaurav Oliver MD Copies to: Gaurav Oliver MD~ Ordering Provider: Gaurav Oliver MD Date of Service: 11/17/24 XR/XR chest 1V portable: POST INFUSAPORT EXCHANGE RIGHT SIDE XR chest 1V portable 11/17/2024 1:04 PM SIGNS AND SYMPTOMS: ^POST INFUSAPORT EXCHANGE RIGHT SIDE PROTOCOL: Frontal radiograph the chest COMPARISON: 12/19/2022 FINDINGS: The trachea is midline. There is a new right-sided Yxhlxw-m-Ykps is present with the tip in the superior vena cava. There is no pneumothorax. There is a dual lead pacer device on the left. The heart and mediastinal structures are within normal limits. The lung parenchyma is clear. The bony thorax is intact. XR/XR chest 1V portable IMPRESSION: There is a new right-sided Naotut-d-Zoel is present with the tip in the superiorvena cava. There isno pneumothorax. Impression dictated by: Adam Escamilla M.D. 11/17/2024 1:19 PM Dictation Location: [facility]--24 Transcribed By: [facility] 11/17/24 131 Dictated By: Adam Escamilla II, MD 11/17/24 1317 Signed By: 11/17/24 1319 [facility] Work Phone: XR chest 1V portableon 72-79-8420TX chest 1V portable [facility] Main [address] [address] XRay Report Signed Patient: Maricarmen Anderson MR#: [id number] : 1980 Acct:[id number] Age/Sex: 44 / F ADM Date: 11/17/24 Loc: [place] Room: Type: [facility] Attending Dr: Gaurav Oliver MD Copies to: Gaurav Oliver MD Ordering Provider: Gaurav Oliver MD Date of Service: 11/17/24 XR/XR chest 1V portable: POST INFUSAPORT EXCHANGE RIGHT SIDE XR chest 1V portable 11/17/2024 1:04 PM SIGNS AND SYMPTOMS: POST INFUSAPORT EXCHANGE RIGHT SIDE PROTOCOL: Frontal radiograph the chest COMPARISON: 12/19/2022 FINDINGS: The trachea is midline. There is a new right-sided Lwzozl-c-Awpq is present with the tip in the superior vena cava. There is no pneumothorax. There is a dual lead pacer device on the left. The heart and mediastinal structures are within normal limits. The lung parenchyma is clear. The bony thorax is intact. XR/XR chest 1V portable IMPRESSION: There is a new right-sided Csotjl-j-Ipuc is present with the tip in the superior vena cava. There is no pneumothorax. Impression dictated by: Adam Escamilla M.D. 11/17/2024 1:19 PM Dictation Location: [place] [address] Transcribed By: RAFA 11/17/24 1319 Dictated By: Adam Escamilla II, MD 11/17/24 1317 Signed By: 11/17/24 1319[facility] Physician GroupaPTT in Platelet poor plasma by Coagulation assayOrdered By: Franc Barlow on 33-51-5324kTPJ Coag (PPP) [Time] Activated partial thromboplastin time (aPTT) in platelet poor plasma by coagulation a25.1-36.5FThe Jewish HospitalComment on above:A hematocrit value greater than 55% may lead to inaccurate results in coagulation testing. Patientshaving hematocrit values >55% require a special collection tube for coagulation studies. Please contact the laboratory at [phone] for redraw instructions.Basophils Auto (Bld) [#/Vol]on 59-63-8213Htqpkhxwn (Bld) [#/Vol]Automated basophil count0.0-0.1FThe [facility] Hospital Basophils/100 WBC Auto (Bld)on 05-13-9271Rjvcesnpp/100 WBC (Bld)Automated basophil %0.2-2.0[facility] HospitalEosinophils/100 WBC Auto (Bld) on 16-18-7771Uateiyiqvyu/100 WBC (Bld)Automated eosinophil %Low0.9-7.0The [facility] HospitalErythrocyte distribution width Auto (RBC) [Ratio]on 47-74-1878Ewslofckbps distribution width (RBC) [Ratio]Erythrocyte distribution width [Ratio] by Automated count11.0-15.0[facility] Estimated glomerular filtration rate (GFR) non- Americanon 10-31-2024 GFR/1.73 sq M.predicted among non-blacks MDRD (S/P/Bld) [Vol rate/Area]Estimated glomerular filtration rate (GFR) non- AmericanLow>=60 mL/min/1.73m 2 The [facility] HospitalHematocrit Auto (Bld) [Volume fraction]on 75-82-8003Ggdrliqbba (Bld) [Volume fraction]Hematocrit [Volume Fraction] of Blood by Automated count36.0-48.0[facility] HospitalHemoglobin [Mass/volume] in Bloodon 04-12-3356Xiulfokolx (Bld) [Mass/Vol]Hemoglobin [Mass/volume] in Blood12.0-16.0[facility] HospitalIron binding capacity [Mass/volume] in Serum or Plasmaon 32-31-3410Qgtf binding capacity [Mass/Vol]Iron binding capacity [Mass/volume] in Serum or [place]625.0-450.0 [facility] HospitalIron saturation [Mass Fraction] in Serum or Plasmaon 26-95-9671Entn saturation [Mass fraction]Iron saturation [Mass Fraction] in Serum or PlasmaThe Christ HospitalLaboratory - Chemistry and Chemistry - challengeon 05-39-2512Sozyqkr [Mass/Vol]8.8 mg/dL 8.5-10.1FThe Jewish HospitalChloride [Moles/Vol]104 mmol/L98-107 [facility] HospitalCO2 [Moles/Vol]28.6 mmol/L21.0-32.0[facility] HospitalCobalamin (Vitamin B12) [Mass/Vol]655 pg/sG135-6919 The [facility] HospitalComment on above:Performed at: - [facility] [address] [id number] Director: Prabhakar Warren PhD, Phone: [phone] [Mass/Vol]1.06 mg/dLHigh0.55-1.02The [facility] HospitalFerritin [Mass/Vol]136.0 ng/mL8.0-252.0[facility] HospitalGFR/1.73 sq M.predicted MDRD (S/P/Bld) [Vol rate/Area]mL/min/{1.73_m2} >=60 mL/min/1.73m 2FThe Jewish HospitalGlucose [Mass/Vol]132 mg/dL Mqhb31-711VawjbmdfrThe Christ HospitalIron [Mass/Vol]59.0 ug/dL50.0-170.0 The [facility] HospitalPotassium [Moles/Vol]3.3 mmol/LLow3.5-5.1 [facility] Cancer Centerodium [Moles/Vol]137 mmol/V289-715UqibghjhkThe Christ HospitalUrea nitrogen [Mass/Vol]8.0 mg/dL7.0-18.0The [facility] HospitalUrea nitrogen/Creatinine [Mass ratio]7.5 mg/mgThe Christ HospitalLaboratory - Hematology and Cell countson 10-31-2024 Immature granulocytes/100 WBC (Bld)0.0 %0.0-0.5FThe [facility] Hospital Leukocytes [#/volume] corrected for nucleated erythrocytes in Blood by Automated counon 07-77-8087SVI corrected for nucl RBC Auto (Bld) [#/Vol]Leukocytes [#/volume] corrected for nucleated erythrocytes in Blood by Automated counLow 4.0-11.0The [facility] HospitalLymphocytes Auto (Bld) [#/Vol]on 24-82-9301Yrgogbbgoan (Bld) [#/Vol]Lymphocytes [#/volume] in Blood by Automated countLow1.2-3.8The [facility] HospitalLymphocytes/100 WBC Auto (Bld)on 46-92-4818Beekixvlohd/100 WBC (Bld)Lymphocytes/100 leukocytes in Blood by Automated count20.5-60.0[facility]H Auto (RBC) [Entitic mass]on 41-07-7685RFS (RBC) [Entitic mass]MCH [Entitic mass] by Automated count 26.7-34.0The [facility] HospitalMCHC Auto (RBC) [Mass/Vol]on 66-63-4966LPUP (RBC) [Mass/Vol]MCHC [Mass/volume] by Automated count29.9-35.2 The [facility] HospitalMCV Auto (RBC) [Entitic vol]on 11-48-6343JQL (RBC) [Entitic vol]MCV [Entitic volume] by Automated gfezzCoox26.0-99.0The [facility] HospitalMonocytes Auto (Bld) [#/Vol]on 51-80-5736Bjkmxnvcl (Bld) [#/Vol]Automated blood monocyte count0.3-0.8[facility] Monocytes/100 WBC Auto (Bld)on 07-14-3793Xlmuazbki/100 WBC (Bld)Automated monocyte %High1.7-12.0The [facility] HospitalNeutrophils Auto (Bld) [#/Vol]on 53-27-5032Abdtkghkafq (Bld) [#/Vol]Neutrophils [#/volume] in Blood by Automated countLow1.4-6.5FThe Jewish HospitalNeutrophils/100 WBC Auto (Bld)on 85-57-1913Jzatvpjevoh/100 WBC (Bld)Automated neutrophil %43.0-75.0 The [facility] HospitalNo Panel Informationon 314300-Irtnvtu Vitamin D Total39.3 ng/mLThe Christ HospitalComment on above:<20 ng/mL Vit D hdzbujrlf78-<30 ng/mL Vit D raxcsbuonjbu39-695 ng/mL Vit D sufficient>100 ng/mL Potential ToxicityEosinophils # (Auto)0.0 10 3/uL0.0-0.7 The [facility] HospitalImmature Granulocyte # (Auto)0.00 10 3/uL 0.00-0.03The [facility] HospitalPlatelet mean volume Auto (Bld) [Entitic vol]on 19-48-3700Ugjdalog mean volume (Bld) [Entitic vol]Platelet mean volume [Entitic volume] in Blood by Automated count9.5-13.5FThe Jewish HospitalPlatelets Auto (Bld) [#/Vol]on 31-17-6193Eljrelvet (Bld) [#/Vol] Platelets [#/volume] in Blood by Automated gdqvhPmh712-543CnairpgqfThe Christ HospitalRBC Auto (Bld) [#/Vol]on 71-70-6836TWI (Bld) [#/Vol]Erythrocytes [#/volume] in Blood by Automated countLow4.20-5.40[facility] MD, Cancer Centererum or plasma anion gap determinationon 35-82-7850Qxtab gap [Moles/Vol] Serum or plasma anion gap determinationThe Christ HospitalINR in Platelet poor plasma by Coagulation assayon 67-43-4589QTV Coag (PPP) [Relative time]INR in Platelet poor plasma by Coagulation assayThe Christ HospitalComment on above:DESIRED INR:2.0-3.0 CONDITIONS NOT LISTED BELOW2.5-3.5 FOR PROSTHETIC HEART VALVE REPLACEMENT2.5-3.5 RECURRENT THROMBOSISNo Panel Informationon 90-28-2036Njmur Chorionic Gonadotropin, QualNegativeNEGATIVE The [facility] HospitalProthrombin time (PT)on 57-56-5630CF Coag (PPP) [Time]Prothrombin time (PT)High9.0-11.6FThe Jewish HospitalMR cervical spine wo conon 88-17-0147XD cervical spine wo [facility] [place] [address] MRI Report Signed Patient: Maricarmen Anderson MR#: [id number] : 1980 Acct:[id number] Age/Sex: 43 / F ADM Date: 08/31/24 Loc: MR Room: Type: [facility] Attending Dr: Tete Snell MD Copies [...] Praful Manley M.D.08/31/2024 10:20 AM Dictation Location: [place] [address] Transcribed By: [facility] 08/31/24 1020 Dictated By: Praful Manley MD 08/31/24 0947 Signed By: 08/31/[address] [place] [address] Physician GroupMagnetic resonance imaging reportOrdered By: Parful Manley on 34-67-1921Wuycv reportSAMARITAN NOR[facility] Main [place] [address] [place] [address] MRI Report Signed Patient: Maricarmen Anderson MR#: [id number] : 1980 Acct:[id number] Age/Sex: 43 / F ADM Date: 5 Loc: MR Room: Type: [facility] Attending Dr: Tete Snell MD Copies [...] Praful Manley M.D.08/31/2024 10:20 AM Dictation Location: [place] [address] Transcribed By: [facility] 08/31/24 1020 Dictated By: Praful Manley MD 08/31/24 0947 Signed By: 08/31/24 1020 [facility] Work Phone: INR in Platelet poor plasma by Coagulation assayon 31-03-9234KYT Coag (PPP) [Relative time]INR in Platelet poor plasma by Coagulation assayThe Christ HospitalComment on above:DESIRED INR:2.0-3.0 CONDITIONS NOT LISTED BELOW2.5-3.5 FOR PROSTHETIC HEART VALVE REPLACEMENT2.5-3.5 RECURRENT THROMBOSISNo Panel Informationon 74-45-5724Vhrmv Chorionic Gonadotropin, QualNegativeNEGATIVEThe [facility] Hospital Prothrombin time (PT)on 92-70-9319XA Coag (PPP) [Time]Prothrombin time (PT) 9.0-11.6FThe Jewish HospitalBasophils Auto (Bld) [#/Vol]on 44-63-4013Fbaricpjr (Bld) [#/Vol]Automated basophil count0.0-0.1FThe Jewish HospitalBasophils/100 WBC Auto (Bld)on 55-08-2061Oznzvnqha/100 WBC (Bld)Automated basophil %0.2-2.0[facility] Eosinophils/100 WBC Auto (Bld)on 70-19-3865Kciptrreelv/100 WBC (Bld)Automated eosinophil %0.9-7.0The [facility] HospitalErythrocyte distribution width Auto (RBC) [Ratio]on 22-43-1367Bjvikaqndrf distribution width (RBC) [Ratio]Erythrocyte distribution width [Ratio] by Automated count11.0-15.0 The [facility] HospitalEstimated glomerular filtration rate (GFR) non- Americanon 21-38-5278NDR/1.73 sq M.predicted among non-blacks MDRD (S/P/Bld) [Vol rate/Area]Estimated glomerular filtration rate (GFR) non->=60 mL/min/1.73m 2FThe Jewish HospitalHematocrit Auto (Bld) [Volume fraction]on 35-68-5797Xdiwxjtcco (Bld) [Volume fraction]Hematocrit [Volume Fraction] of Blood by Automated count36.0-48.0The [facility] HospitalHemoglobin [Mass/volume] in Bloodon 83-51-5032Wqeliuiden (Bld) [Mass/Vol] Hemoglobin [Mass/volume] in Blood12.0-16.0The [facility] HospitalIron binding capacity [Mass/volume] in Serum or Plasmaon 44-83-1948Cwti binding capacity [Mass/Vol]Iron binding capacity [Mass/volume] in Serum or Plasma 250.0-450.0The [facility] HospitalIron saturation [Mass Fraction] in Serum or Plasmaon 75-31-6423Hzvk saturation [Mass fraction]Iron saturation [Mass Fraction] in Serum or PlasmaThe Christ HospitalLaboratory - Chemistry and Chemistry - challengeon 84-91-5394Mtufrxr [Mass/Vol]9.2 mg/dL 8.5-10.1FThe Jewish HospitalChloride [Moles/Vol]105 mmol/L98-107 The [facility] HospitalCO2 [Moles/Vol]28.3 mmol/L21.0-32.0The [facility] HospitalCobalamin (Vitamin B12) [Mass/Vol]617 pg/yB576-7987 The [facility] HospitalComment on above:Performed at: - [facility] [address] [id number] Director: Prabhakar Warren PhD, Phone: [phone] [Mass/Vol]0.94 mg/dL0.55-1.02The [facility] HospitalFerritin [Mass/Vol]76.0 ng/mL8.0-252.0The [facility] HospitalGFR/1.73 sq M.predicted MDRD (S/P/Bld) [Vol rate/Area]mL/min/{1.73_m2}>=60 mL/min/1.73m 2FThe Jewish HospitalGlucose [Mass/Vol]96 mg/hM89-464 The [facility] HospitalIron [Mass/Vol]116.0 ug/dL50.0-170.0The [facility] HospitalPotassium [Moles/Vol]4.3 mmol/L3.5-5.1FPremier Health Miami Valley Hospital Northodium [Moles/Vol]143 mmol/M689-092RjklblzsfThe Christ HospitalUrea nitrogen [Mass/Vol]11.0 mg/dL7.0-18.0The [facility] HospitalUrea nitrogen/Creatinine [Mass ratio]11.7 mg/mgThe Christ HospitalLaboratory - Hematology and Cell countson 38-31-1256Jemerzkf granulocytes/100 WBC (Bld)0.2 %0.0-0.5FThe [facility] Hospital Leukocytes [#/volume] corrected for nucleated erythrocytes in Blood by Automated counon 05-97-8025STU corrected for nucl RBC Auto (Bld) [#/Vol]Leukocytes [#/volume] corrected for nucleated erythrocytes in Blood by Automated coun 4.0-11.0The Christ HospitalLymphocytes Auto (Bld) [#/Vol]on 21-14-9101Hqjiboqoquj (Bld) [#/Vol]Lymphocytes [#/volume] in Blood by Automated count1.2-3.8The [facility] HospitalLymphocytes/100 WBC Auto (Bld)on 08-18-2185Wjalhnxfvlu/100 WBC (Bld)Lymphocytes/100 leukocytes in Blood by Automated count20.5-60.0[facility] Auto (RBC) [Entitic mass]on 91-84-1693LVU (RBC) [Entitic mass]MCH [Entitic mass] by Automated count High26.7-34.0[facility] SystemHC Auto (RBC) [Mass/Vol]on 71-79-4743XETF (RBC) [Mass/Vol]MCHC [Mass/volume] by Automated count29.9-35.2 [facility] SystemV Auto (RBC) [Entitic vol]on 73-97-9553RWD (RBC) [Entitic vol]MCV [Entitic volume] by Automated suzrtUfrz75.0-99.0The Christ HospitalMain OR Intraoperative Recordon 24-67-4001Pnqa OR Intraoperative RecordMain OR Intraoperative Record IntraOp Document Type FTURO Summary Primary Physician: Michael HAN MD Finalized Date/Time: 07/05/24 13:38:20 Pt. Name: MARICARMEN ANDERSON/Sex: 1980 Female Med Rec #: [id number] Physician: Michael HAN MD Financial #: [id number] Pt. Type: O Room/Bed: / Admit/Disch: 07/05/24 12:41:15 - Institution: Case Times FTURO Entry 1 Patient Times In Room 07/05/24 13:26:00 Out Room 07/05/24 13:38:00 Procedure Times Start 07/05/24 13:32:00 Stop 07/05/24 13:35:00 Anesthesia Times Last Modified By: Jolie Caldwell 07/05/24 13:38:10 Case Attendance FTURO Entry 1 Entry 2 Entry 3 Case Attendee FELICE PATINO, Jolie Carrillo CST, Sheyla Mullins Role Performed Surgeon - Primary Grips - Primary Scrub - Primary Time In [...] URETHERAL DILATION Primary Procedure Yes Primary Surgeon FELICE PATINO, Michael Blanc 07/05/24 13:32:00 Stop 07/05/24 13:35:00 Anesthesia Type [...] Verified Availability Equipment, Medication Time Out Michael HAN MD, Verified (If Participants Jolie Caldwell, Applicable) Sheyla Gold CST Time Out Complete 07/05/24 13:31:00 Allergies Reviewed? Yes Allergies Reviewed Self/Patient With Body Position Frog Legged Prep Area VAGINA Prep Agents Betadine Solution Skin. Condition Intact, [place], Warm, & Description N/A Dry Additional None [...] Jolie Caldwell 07/05/24 13:38 Jolie Caldwell 07/05/24 13:38NoCincinnati Children[facility] Hospital Medical CenterMain OR Preoperative Recordon 30-90-8026Rsuw OR Preoperative RecordMain OR Preoperative Record Holding Area Document Type FTURO Summary Primary Physician: Michael HAN MD Finalized Date/Time: 07/05/24 13:21:29 Pt. Name: MARICARMEN ANDERSON D.O.B./Sex: 1980 Female Med Rec #: [id number] Physician: Michael HAN MD Financial #: [id number] Pt. Type: O Room/Bed: / Admit/Disch: 07/05/24 [...] or her perioperative plan of care The patient'sright to privacy is maintained Surgery Checklist FTURO Entry 1 Patient Birthday, ID Band Procedure History and Physical, Identification: Check, Patient Verification: Surgical Consent, With Participation Patient NPO after Midnight: n/a Limitations: up ad kenroy Complaints of Pain: No Skin Integrity Intact, [place], Warm, & Dry Vitals - EU Blood Pressure 112/72 Pulse 67 bpm Respirations 18 br/min SPO2 98 % Additional None RN Reviewed Yes Specimens Collected Last Modified By: Jolie Calwdell 07/05/24 13:20:55 Finalized By: Jolie Caldwell Document Signatures Signed By: Jolie Caldwell 07/05/24 13:21 Jolie Caldwell 07/05/24 13:21 Jolie Caldwell 07/05/24 13:21 Jolie Caldwell 07/05/24 13:20 Gabriella Gottlieb LPN 07/05/24 13:09 Jolie Caldwell 07/05/24 13:21[facility] HospitalMonocytes Auto (Bld) [#/Vol]on 66-08-5610Tyyyvrwkd (Bld) [#/Vol]Automated blood monocyte count0.3-0.8The [facility] HospitalMonocytes/100 WBC Auto (Bld)on 13-14-5592Oslhrzlsq/100 WBC (Bld)Automated monocyte %1.7-12.0The Christ HospitalNeutrophils Auto (Bld) [#/Vol]on 26-65-6312Lrdhvrgwwfk (Bld) [#/Vol]Neutrophils [#/volume] in Blood by Automated count1.4-6.5FThe Jewish HospitalNeutrophils/100 WBC Auto (Bld)on 07-05-2024 Neutrophils/100 WBC (Bld)Automated neutrophil %43.0-75.0The [facility] HospitalNo Panel Informationon 370216-Lnccyex Vitamin D Total31.2 ng/mLThe Christ HospitalComment on above:<20 ng/mL Vit D nptrepedy86-<30 ng/mL Vit D rqucmmhkpbjx34-755 ng/mL Vit D sufficient>100 ng/mL Potential ToxicityEosinophils # (Auto)0.1 10 3/uL0.0-0.7FThe Jewish HospitalImmature Granulocyte # (Auto)0.01 10 3/uL0.00-0.03The [facility] HospitalOperative Reporton 75-39-2646Caklwbkce ReportOperative Report Patient: MARICARMEN ANDERSON Age: 43 years Sex: Female : 1980 Associated Diagnoses: None Author: Michael HAN MD Procedure Operative Information Details: Date/ Time: [...] up arranged. Urethra was dilated from 22-30 [place] with Pavel sounds.[facility] City HospitalComment on above:Result Comment: Electronically Signed By: FELICE PATINO, Michael Ricci\Date and Time Signed: 07/05/24 13:40 ESTPlatelet mean volume Auto (Bld) [Entitic vol]on 41-76-2106Novjpivw mean volume (Bld) [Entitic vol] Platelet mean volume [Entitic volume] in Blood by Automated count9.5-13.5 The Christ HospitalPlatelets Auto (Bld) [#/Vol]on 07-05-2024 Platelets (Bld) [#/Vol]Platelets [#/volume] in Blood by Automated -468 The [facility] HospitalRBC Auto (Bld) [#/Vol]on 86-42-5315JSX (Bld) [#/Vol]Erythrocytes [#/volume] in Blood by Automated countLow4.20-5.40[facility], Cancer Centererum or plasma anion gap determinationon 32-80-7541Vqktc gap [Moles/Vol]Serum or plasma anion gap determinationThe Christ HospitalCT abdomen pelvis w conon 72-20-1327OZ abdomen pelvis w con [facility] [place] [place] [address] CT Scan Report Signed Patient: Maricarmen Anderson MR#: [id number] : 1980 Acct:[id number] Age/Sex: 43 / F ADM Date: 07/04/24 Loc: CT Room: Type: [facility] Attending Dr: Michael Han MD Copies to: Michael Han MD Ordering Provider: Michael Han MD Date of Service: 07/04/24 CT/CT abdomen [...] Oro Jr., D.OBeatris07/04/2024 2:58 PM Dictation Location: [place] [address] Transcribed By: [facility] 07/04/24 1458 Dictated By: Mitchel Oro Jr, DO 07/04/24 1455 Signed By: 07/04/24 1458[facility] Physician GroupBasophils Auto (Bld) [#/Vol]on 05-49-9841Lpgxwggnm (Bld) [#/Vol]Automated basophil count0.0-0.1FThe Jewish HospitalBasophils/100 WBC Auto (Bld)on 79-83-7687Fkoiwlwwb/100 WBC (Bld)Automated basophil %0.2-2.0The [facility] HospitalCholesterol in LDL Calc [Mass/Vol]on 40-63-7496Chiheexvwlq in LDL [Mass/Vol]Cholesterol in LDL [Mass/volume] in Serum or Plasma by calculationThe Christ HospitalComment on above:<100 mg/dl DAAAGFY857-364 mg/dl NEAR OR ABOVE PWREJAK057- 159 mg/dl BORDERLINE ANRH221-147 mg/dl HIGH>190 mg/dl VERY HIGHCholesterol in VLDL Calc [Mass/Vol]on 12-63-9472Fhlijfzpkho in VLDL [Mass/Vol]Cholesterol in VLDL [Mass/volume] in Serum or Plasma by calculationThe Christ HospitalEosinophils/100 WBC Auto (Bld)on 94-61-5427Wbyelrkmbux/100 WBC (Bld) Automated eosinophil %0.9-7.0The [facility] HospitalErythrocyte distribution width Auto (RBC) [Ratio]on 02-15-9871Aqmgpvkspbe distribution width (RBC) [Ratio]Erythrocyte distribution width [Ratio] by Automated count11.0-15.0 The [facility] HospitalEstimated glomerular filtration rate (GFR) non- Americanon 24-59-1331SEF/1.73 sq M.predicted among non-blacks MDRD (S/P/Bld) [Vol rate/Area]Estimated glomerular filtration rate (GFR) non- AmericanLow>=60 mL/min/1.73m 2FThe Jewish HospitalGlucose mean value [Mass/volume] in Blood Estimated from glycated hemoglobinon 06-02-2024 Average glucose Estimated from glycated hemoglobin (Bld) [Mass/Vol]Glucose mean value [Mass/volume] in Blood Estimated from glycated hemoglobinThe Christ HospitalHematocrit Auto (Bld) [Volume fraction]on 06-02-2024 Hematocrit (Bld) [Volume fraction]Hematocrit [Volume Fraction] of Blood by Automated count36.0-48.0The [facility] HospitalHemoglobin [Mass/volume] in Bloodon 22-79-2549Kwsexvcndt (Bld) [Mass/Vol]Hemoglobin [Mass/volume] in Blood12.0-16.0The [facility] HospitalIron binding capacity [Mass/volume] in Serum or Plasmaon 28-39-6512Bnuj binding capacity [Mass/Vol]Iron binding capacity [Mass/volume] in Serum or Vujyqq902.0-450.0 The [facility] HospitalIron saturation [Mass Fraction] in Serum or Plasmaon 14-61-3670Vvbh saturation [Mass fraction]Iron saturation [Mass Fraction] in Serum or PlasmaThe Christ HospitalLaboratory - Chemistry and Chemistry - challengeon 16-24-5256Vwfbzac [Mass/Vol]9.1 mg/dL 8.5-10.1FThe Jewish HospitalChloride [Moles/Vol]105 mmol/L98-107 The [facility] HospitalCholesterol [Mass/Vol]186 mg/dL<=200The [facility] HospitalCholesterol in HDL [Mass/Vol]72 mg/hBUugn76-96WowqbkmiwThe Christ HospitalComment on above:> or =60 mg/dl - LOW CARDIOVASCULAR RISK<40 mg/dl - HIGH CARDIOVASCULAR RISKCO2 [Moles/Vol]29.9 mmol/L21.0-32.0 The [facility] HospitalCobalamin (Vitamin B12) [Mass/Vol]241 pg/mL 232-1245The Christ HospitalComment on above:Performed at: - [facility] [id number] Director: Prabhakar Warren PhD, Phone: [phone] [Mass/Vol]1.16 mg/dLHigh0.55-1.02 The [facility] HospitalFerritin [Mass/Vol]78.0 ng/mL8.0-252.0The [facility] HospitalGFR/1.73 sq M.predicted MDRD (S/P/Bld) [Vol rate/Area] mL/min/{1.73_m2}>=60 mL/min/1.73m 2FThe Jewish HospitalGlucose [Mass/Vol]101 mg/fO43-695EaszmtqwrThe Christ HospitalIron [Mass/Vol]112.0 ug/dL50.0-170.0The [facility] HospitalPotassium [Moles/Vol]3.9 mmol/L 3.5-5.1FPremier Health Miami Valley Hospital Northodium [Moles/Vol]141 mmol/G078-171 The [facility] HospitalTriglyceride [Mass/Vol]86 mg/dL<=150The [facility] HospitalUrea nitrogen [Mass/Vol]7.0 mg/dL7.0-18.0The [facility] HospitalUrea nitrogen/Creatinine [Mass ratio]6.0 mg/mgThe Christ HospitalLaboratory - Hematology and Cell countson 21-75-1597JkI0b (Bld) [Mass fraction]5.7 %4.5-6.2FThe Jewish HospitalComment on above:ADA RECOMMENDED LIMIT 4.0 - 6.0ADA THERAPEUTIC TARGET < 7.0ACTION SUGGESTED> 7.0Immature granulocytes/100 WBC (Bld)0.2 %0.0-0.5FThe Jewish HospitalLeukocytes [#/volume] corrected for nucleated erythrocytes in Blood by Automated counon 99-10-8715VPP corrected for nucl RBC Auto (Bld) [#/Vol]Leukocytes [#/volume] corrected for nucleated erythrocytes in Blood by Automated coun4.0-11.0The [facility] HospitalLymphocytes Auto (Bld) [#/Vol]on 79-81-7371Dsryhlhzcly (Bld) [#/Vol]Lymphocytes [#/volume] in Blood by Automated count1.2-3.8The [facility] HospitalLymphocytes/100 WBC Auto (Bld)on 28-78-5262Nnzkoofbexz/100 WBC (Bld)Lymphocytes/100 leukocytes in Blood by Automated count20.5-60.0[facility] SystemH Auto (RBC) [Entitic mass]on 32-26-9733VMH (RBC) [Entitic mass]MCH [Entitic mass] by Automated count26.7-34.0The Christ HospitalMCHC Auto (RBC) [Mass/Vol]on 42-78-6273MZEY (RBC) [Mass/Vol]MCHC [Mass/volume] by Automated count29.9-35.2FThe Jewish HospitalMCV Auto (RBC) [Entitic vol]on 90-98-8598WIN (RBC) [Entitic vol]MCV [Entitic volume] by Automated count 81.0-99.0The [facility] HospitalMonocytes Auto (Bld) [#/Vol]on 33-01-3034Gcgggkvfm (Bld) [#/Vol]Automated blood monocyte count0.3-0.8The [facility] HospitalMonocytes/100 WBC Auto (Bld)on 96-04-5522Fiwioirop/100 WBC (Bld)Automated monocyte %1.7-12.0[facility] Neutrophils Auto (Bld) [#/Vol]on 60-68-1222Kbitiacrpnu (Bld) [#/Vol]Neutrophils [#/volume] in Blood by Automated count1.4-6.5FThe [facility] Hospital Neutrophils/100 WBC Auto (Bld)on 24-20-8561Xlnbsvehrnr/100 WBC (Bld)Automated neutrophil %43.0-75.0The [facility] HospitalNo Panel Informationon 45-61-885487420544-Phoewkd Vitamin D Total26.9 ng/mLThe [facility] Comment on above:<20 ng/mL Vit D wnspnuyva74-<30 ng/mL Vit D ntdoqgeiazwx89-894 ng/mL Vit D sufficient>100 ng/mL Potential ToxicityEosinophils # (Auto)0.2 10 3/uL0.0-0.7FThe Jewish HospitalImmature Granulocyte # (Auto)0.01 10 3/uL0.00-0.03The [facility] HospitalPlatelet mean volume Auto (Bld) [Entitic vol]on 23-06-3432Ssicpoet mean volume (Bld) [Entitic vol]Platelet mean volume [Entitic volume] in Blood by Automated countLow9.5-13.5FThe Jewish HospitalPlatelets Auto (Bld) [#/Vol]on 30-74-2489Vtbtseibl (Bld) [#/Vol] Platelets [#/volume] in Blood by Automated vpaxu035-558XbmtoxcajThe Christ HospitalRBC Auto (Bld) [#/Vol]on 19-04-0965IWQ (Bld) [#/Vol]Erythrocytes [#/volume] in Blood by Automated count4.20-5.40[facility] Serum or plasma anion gap determinationon 86-19-8046Aezgl gap [Moles/Vol]Serum or plasma anion gap determinationOhioHealth Arthur G.H. Bing, MD, Cancer Centererum or plasma total cholesterol/high density lipoprotein (HDL) cholesterol mass edu 58-04-5697Rdpgmmjnjjo.total/Cholesterol in HDL [Mass ratio]Serum or plasma total cholesterol/high density lipoprotein (HDL) cholesterol mass ratThe Christ HospitalComment on above:3.3 - 4.4 LOW RISK4.4 - 7.1 AVERAGE RISK7.1 - 11.0 MODERATE RISK>11.0 HIGH RISKUrology Office/Clinic Noteon 11-11-3001Etjjuum Office/Clinic NoteUrology Office/Clinic Note HPI Staff 43yr old female [...] 161 TODAY - 286ml. See #2. Ordered: 04059 Measure Post Void residual urine and/or bladder capacity by US- non-imaging Urnls Dip Stick Auto w/o Microscopy POC 09648 2. Urethral stricture (N35.919: Unspecified urethral stricture, [...] been obtained. Will order Local anesthesia. Ordered: 38162 Measure Post Void residual urine and/or bladder capacity by US- non-imaging Urnls Dip Stick Auto w/o Microscopy POC 51546 3. Renal mass (N28.89: Other specified disorders [...] better look at the complex cyst. Ordered: 10072 Measure Post Void residual urine and/or bladder capacity by US- non-imaging Urnls Dip Stick Auto w/o Microscopy POC 70920 4. 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 [address] Additional Instructions: Follow up schedule [...] dilation of urethral stricture (12/09/2022), Cystourethroscopy with dilationof urethral stricture (02/19/2021), Appendectomy, Cholecystectomy, Pacemaker care. Medications aripiprazole 30 mg oral tablet Phenergan 50 mg/mL injectable solution, 50 mg= 1 mL, IntraMuscular, q6hr, PRN traZODONE 50 mg Tab Zanaflex, 4 mg, Oral Zofran, Oral Allergies Dilaudid (Itching, Unknown) HYDROmorphone (Itching, Unknown, Itching) Social History Alcohol Never., 06/02/2024 Substance Abuse Never., 06/02/2024 Tobac (more content not included)...[facility] HospitalComment on above:Result Comment: Electronically Signed By: ESTELA CHUNG PA-C\.br\Date and Time Signed: 06/02/2416:50 EST\.br\Electronically Co-Signed By: Shyann Yoo\.br\Date and Time Co-Signed: 06/02/24 15:54 ESTUS renal BIon 50-74-1742CU renal [facility] [place] [address] Ultrasound Report Signed Patient: Maricarmen Anderson MR#: [id number] : 1980 Acct:[id number] Age/Sex: 43 / F ADM Date: 05/30/24 Loc: Room: Type: [facility] Attending Dr: Estela Chung PA-C Ordering [...] Oro Jr., D.O.05/30/2024 6:31 PM Dictation Location: [place] [address] Tech: Greta Reyes Transcribed By: RAFA 05/30/241830 Dictated By: Mitchel Oro Jr, DO 05/30/241828 Signed By: 05/30/241830[facility] Physician GroupFloyd [facility] Center 43-52-6991pWPE Coag (Bld) [Time]139.6 sCritically high23.0-36.5[facility] Hospitalcy [facility] San DiegoComment on above:Result Comment: IV Heparin Therapy Range: 66.0-92.0 secPerformed By: #### PTT #### [address] [address] Valuation Manager: Lottie Ramsey 63-84-3583Jnjzmxsdrtc distribution width (RBC) [Ratio]12.7 %Tdrjow17.8-14.4Grant HospitalComment on above:Performed By: #### CBC #### [address] [address] Valuation Manager: Breezy White MDHematocrit (Bld) [Volume fraction]36.5 %Normal 36.3-47.1MWoodland Memorial HospitalComment on above:Performed By: #### CBC #### [facility] [employer] [address] [place] [address] Valuation Manager: Breezy White MDHemoglobin (Bld) [Mass/Vol]12.0 g/dLNormal 11.9-15.1Mohiohealth shelby hospitaly [facility] San DiegoComment on above:Performed By: #### CBC #### [address] [address] Valuation Manager: [place] RamseyCH (RBC) [Entitic mass]31.9 irClyixy18.2-33.5 [facility] HospitalComment on above:Performed By: #### CBC #### [address] [address] Valuation Manager: [place] RamseyCHC (RBC) [Mass/Vol]32.9 g/mQDyfhno74.4-34.8 [facility] HospitalComment on above:Performed By: #### CBC #### [address] [address] Valuation Manager: [place] RamseyCV (RBC) [Entitic vol]97.1 eDMrxzym75.6-102.9 Grant HospitalComment on above:Performed By: #### CBC #### [address] [address] Valuation Manager: Breezy White MDNRBC Automated0.0 per 100 WBCNormal0.0Grant HospitalComment on above:Performed By: #### CBC #### [address] [address] Valuation Manager: John Ramsey mean volume (Bld) [Entitic vol]9.9 fL Normal8.1-13.5Grant HospitalComment on above:Performed By: #### CBC #### [address] [address] Valuation Manager: Marina Ramseytejose (Bld) [#/Vol]149 10*3/dXGijvpe588-745 Grant HospitalComment on above:Performed By: #### CBC #### [address] [address] Valuation Manager: Breezy White MDRBC (Bld) [#/Vol]3.76 10*6/uLLow3.95-5.11Grant HospitalComment on above:Performed By: #### CBC #### [address] [address] Valuation Manager: CARLIN Ramsey (Bld) [#/Vol]5.0 10*3/uLNormal3.5-11.3MWoodland Memorial HospitalComment on above:Performed By: #### CBC #### [place] [address] Valuation Manager: Breezy White [facility] [place] 85-69-1974zSXA Coag (Bld) [Time]59.7 s High23.0-36.5Grant HospitalComment on above:Result Comment: IV Heparin Therapy Range: 66.0-92.0 secPerformed By: #### PTT #### [place] [address] Valuation Manager: Radha RamseyT Coag (Bld) [Time]75.3 sHigh23.0-36.5Grant HospitalComment on above:Result Comment: IV Heparin Therapy Range: 66.0-92.0 secPerformed By: #### PTT #### [address] [address] Valuation Manager: Radha RamseyT Coag (Bld) [Time]sCritically high23.0-36.5 Grant HospitalComment on above:Result Comment: IV Heparin Therapy Range: 66.0-92.0 secPerformed By: #### PTT #### [address] [address] Valuation Manager: Breezy White [facility] [place] 67-76-2627oPDP Coag (Bld) [Time]22.0 sLow 23.0-36.5Grant HospitalComment on above:Result Comment: IV Heparin Therapy Range: 66.0-92.0 secPerformed By: #### PTT, HEPXA, CDP, BMPX, PT #### [facility] [employer] [address] [place] [address] Valuation Manager: Bobo Ramsey Metab w/rfx MGon 10-96-0571Ocpho gap [Moles/Vol]12 mmol/LNormal9-16Grant HospitalComment on above: Performed By: #### PTT, HEPXA, CDP, BMPX, PT #### [facility] [employer] [address] [place] [address] Valuation Manager: Breezy White MDCalcium [Mass/Vol]8.9 mg/dLNormal8.6-10.4Grant HospitalComment on above:Performed By: #### PTT, HEPXA, CDP, BMPX, PT #### [facility] [employer] [address] [place] [address] Valuation Manager: Breezy White MDChloride [Moles/Vol]105 mmol/RJyibbe48-009PmrhxGrant HospitalComment on above:Performed By: #### PTT, HEPXA, CDP, BMPX, PT #### [facility] [employer] [address] [place] [address] Valuation Manager: Breezy White MDCO2 [Moles/Vol]22 mmol/EAjaqwf14-21LkdxvGrant HospitalComment on above:Performed By: #### PTT, HEPXA, CDP, BMPX, PT #### [facility] [employer] [address] [place] [address] Valuation Manager: Breezy White MDCreatinine [Mass/Vol]0.8 mg/dLNormal0.50-0.90 Grant HospitalComment on above:Performed By: #### PTT, HEPXA, CDP, BMPX, PT #### [facility] [employer] [address] [place] [address] Valuation Manager: SHANNAN Ramsey/1.73 sq M.predicted among non-blacks MDRD (S/P/Bld) [Vol rate/Area]mL/min/{1.73_m2}Normal>60Grant HospitalComment on above:Result Comment: These results are not intended for [...] or following therapy that affects renal tubular secretion.Performed By: #### PTT, HEPXA, CDP, BMPX, PT #### [employer] [address] [place] [address] Valuation Manager: Breezy White MDGlucose [Mass/Vol]82 mg/zZIrndrz42-86SujqjWoodland Memorial HospitalComment on above:Performed By: #### PTT, HEPXA, CDP, BMPX, PT #### [facility] [address] [place] [address] Valuation Manager: FLASH Ramseyotassium [Moles/Vol]4.0 mmol/LNormal3.7-5.3 Grant HospitalComment on above:Performed By: #### PTT, HEPXA, CDP, BMPX, PT #### [employer] [address] [place] [address] Valuation Manager: GRETEL Ramseyodium [Moles/Vol]139 mmol/GWmuczt795-257WgrcbGrant HospitalComment on above:Performed By: #### PTT, HEPXA, CDP, BMPX, PT #### [employer] [address] [place] [address] Valuation Manager: Breezy White MDUrea nitrogen [Mass/Vol]10 mg/dLNormal6-20Grant HospitalComment on above:Performed By: #### PTT, HEPXA, CDP, BMPX, PT #### [employer] [address] [place] [address] Valuation Manager: KARLY Ramsey with Diffon 43-87-1888Axi. Basophil<0.03 Normal0.00-0.20Grant HospitalComment on above:Performed By: #### PTT, HEPXA, CDP, BMPX, PT #### [facility] [employer] [address] [place] [address] Valuation Manager: Jez Ramsey.Imm.Granulocyte<0.16Lrxoms1.00-0.30Grant HospitalComment on above:Performed By: #### PTT, HEPXA, CDP, BMPX, PT #### [facility] [employer] [address] [place] [address] Valuation Manager: eJz Ramsey.Neutrophil (Seg)2.93 k/uLNormal1.50-8.10 Grant HospitalComment on above:Performed By: #### PTT, HEPXA, CDP, BMPX, PT #### [facility] [employer] [address] [place] [address] Valuation Manager: Breezy White MDBasophils/100 WBC (Bld)0 %Normal0-2MWoodland Memorial HospitalComment on above:Performed By: #### PTT, HEPXA, CDP, BMPX, PT #### [facility] [employer] [address] [place] [address] Valuation Manager: Breezy White MDEosinophils (Bld) [#/Vol]0.08 10*3/uLNormal 0.00-0.44Grant HospitalComment on above:Performed By: #### PTT, HEPXA, CDP, BMPX, PT #### [facility] [employer] [address] [place] [address] Valuation Manager: CINTHYA Ramseyosinophils/100 WBC (Bld)2 %Normal1-4Grant HospitalComment on above:Performed By: #### PTT, HEPXA, CDP, BMPX, PT #### [facility] [employer] [address] [place] [address] Valuation Manager: Breezy White MDErythrocyte distribution width (RBC) [Ratio]12.8 %Miknuu13.8-14.4Grant HospitalComment on above:Performed By: #### PTT, HEPXA, CDP, BMPX, PT #### [address] [address] Valuation Manager: Breezy White MDHematocrit (Bld) [Volume fraction]38.6 %Normal 36.3-47.1MWoodland Memorial HospitalComment on above:Performed By: #### PTT, HEPXA, CDP, BMPX, PT #### [address] [address] Valuation Manager: Breezy White MDHemoglobin (Bld) [Mass/Vol]12.5 g/dLNormal 11.9-15.1MWoodland Memorial HospitalComment on above:Performed By: #### PTT, HEPXA, CDP, BMPX, PT #### [facility] [employer] [address] [place] [address] Valuation Manager: Breezy White MDImmature granulocytes/100 WBC (Bld)0 %Normal0 Grant HospitalComment on above:Performed By: #### PTT, HEPXA, CDP, BMPX, PT #### [facility] [employer] [address] [place] [address] Valuation Manager: Breezy White MDLymphocytes (Bld) [#/Vol]1.24 10*3/uLNormal 1.10-3.70Grant HospitalComment on above:Performed By: #### PTT, HEPXA, CDP, BMPX, PT #### [facility] [employer] [address] [place] [address] Valuation Manager: Raheel Ramseymphocytes/100 WBC (Bld)27 %Vxhsvj22-13HtpjfGrant HospitalComment on above:Performed By: #### PTT, HEPXA, CDP, BMPX, PT #### [place] [address] Valuation Manager: FLORIDA RamseyCH (RBC) [Entitic mass]31.9 joRiccci24.2-33.5 Grant HospitalComment on above:Performed By: #### PTT, HEPXA, CDP, BMPX, PT #### [place] [address] Valuation Manager: MORTEZA RamseyC (RBC) [Mass/Vol]32.4 g/tREhvigq37.4-34.8 Grant HospitalComment on above:Performed By: #### PTT, HEPXA, CDP, BMPX, PT #### [place] [address] Valuation Manager: FLORIDA RamseyCV (RBC) [Entitic vol]98.5 hMKotsah02.6-102.9 Grant HospitalComment on above:Performed By: #### PTT, HEPXA, CDP, BMPX, PT #### [place] [address] Valuation Manager: FLOR[place] Ramseyonocytes (Bld) [#/Vol]0.35 10*3/uLNormal 0.10-1.20Grant HospitalComment on above:Performed By: #### PTT, HEPXA, CDP, BMPX, PT #### [facility] [employer] [address] [place] [address] Valuation Manager: FLORIDA Ramseyonocytes/100 WBC (Bld)8 %Normal3-12Grant HospitalComment on above:Performed By: #### PTT, HEPXA, CDP, BMPX, PT #### [facility] [address] [place] [address] Valuation Manager: Radha Ramseyutrophil (Seg)63 %Hhrnty76-86PhvfiGrant HospitalComment on above:Performed By: #### PTT, HEPXA, CDP, BMPX, PT #### [facility] [employer] [address] [place] [address] Valuation Manager: SHARON Ramsey Automated0.0 per 100 WBCNormal0.0Grant HospitalComment on above:Performed By: #### PTT, HEPXA, CDP, BMPX, PT #### [facility] [employer] [address] [place] [address] Valuation Manager: John Ramsey mean volume (Bld) [Entitic vol]10.2 fL Normal8.1-13.5Grant HospitalComment on above:Performed By: #### PTT, HEPXA, CDP, BMPX, PT #### [facility] [address] [place] [address] Valuation Manager: Nae Ramsey (Bld) [#/Vol]152 10*3/eRCzpqbg345-415 Grant HospitalComment on above:Performed By: #### PTT, HEPXA, CDP, BMPX, PT #### [facility] [employer] [address] [place] [address] Valuation Manager: DENILSON Ramsey (Bld) [#/Vol]3.92 10*6/uLLow3.95-5.11Grant HospitalComment on above:Performed By: #### PTT, HEPXA, CDP, BMPX, PT #### [facility] [address] [place] [address] Valuation Manager: CARLIN Ramsey (Bld) [#/Vol]4.6 10*3/uLNormal3.5-11.3Mohiohealth shelby hospitaly [facility] Center San DiegoComment on above:Performed By: #### PTT, HEPXA, CDP, BMPX, PT #### [facility] [address] [place] [phone] Valuation Manager: Breezy White MDHeparin Anti-Xaon 34-48-5068Hszzufa Anti-Xa1.59 IU/LNormalMerTustin Hospital Medical CenterComment on above:Performed By: #### PTT, HEPXA, CDP, BMPX, PT #### [facility] [address] [place] [address] Valuation Manager: Breezy White MDLaboratory - Coagulationon 33-46-5180pRTO Coag (Bld) [Time]102.5 s48.2-68.6FThe Jewish HospitalComment on above: RESULTS CALLED TO ALICIA WAGNER RN @BY Tanja Jj at [address] [place] [address] 49-68-9806LRN Coag (PPP) [Relative time]1.1 {INR}[facility] Hospital LimaComment on above:Result Comment: Therapeutic Range: Moderate Anticoagulant Intensity: INR = 2.0-3.0 High Anticoagulant Intensity: INR = 2.5-3.5Performed By: #### PTT, HEPXA, CDP, BMPX, PT #### [facility] [employer] [address] [place] [phone] Valuation Manager: HARVINDER Ramsey Coag (PPP) [Time]13.8 pScmgyb53.7-14.9Grant HospitalComment on above:Performed By: #### PTT, HEPXA, CDP, BMPX, PT #### [facility] [employer] [address] [place] [phone] Valuation Manager: Rigo Ramseyivated partial thromboplastin time (aPTT) in platelet poor plasma by coagulation aon 03-10-9579bKLH Coag (PPP) [Time]26.7 s 22.3-36.2FThe Jewish HospitalBasophils Auto (Bld) [#/Vol]on 57-19-1286Sfzmnebkb (Bld) [#/Vol]0.0 10 3/uL0.0-0.1FThe Jewish HospitalBasophils/100 WBC Auto (Bld)on 30-98-2790Oeckqegxp/100 WBC (Bld)0.4 % 0.2-2.0[facility] HospitalEosinophils/100 WBC Auto (Bld)on 00-13-9568Kouhaioovku/100 WBC (Bld)1.1 %0.9-7.0[facility] Erythrocyte distribution width Auto (RBC) [Ratio]on 84-03-2266Hsqrcfahvll distribution width (RBC) [Ratio]12.8 %11.0-15.0[facility] Estimated glomerular filtration rate (GFR) non- Americanon 10-28-2023 GFR/1.73 sq M.predicted among non-blacks MDRD (S/P/Bld) [Vol rate/Area] mL/min/{1.73_m2}>=60The [facility] HospitalGlobulin Calc (S) [Mass/Vol]on 00-00-2634Jzcitakp (S) [Mass/Vol]3.6 g/dLThe Christ HospitalHematocrit Auto (Bld) [Volume fraction]on 91-71-2880Oluowylpai (Bld) [Volume fraction]35.3 %36.0-48.0[facility] HospitalHemoglobin [Mass/volume] in Bloodon 53-11-7910Lukzzgepqu (Bld) [Mass/Vol]11.6 g/dL12.0-16.0 [facility] HospitalINR in Platelet poor plasma by Coagulation assayon 36-94-6347RLL Coag (PPP) [Relative time]0.98 {INR}The Christ HospitalComment on above:DESIRED INR:2.0-3.0 CONDITIONS NOT LISTED BELOW2.5-3.5 FOR PROSTHETIC HEART VALVE REPLACEMENT2.5-3.5 RECURRENT THROMBOSIS Laboratory - Chemistry and Chemistry - challengeon 77-83-0370Dvmuupg [Mass/Vol] 3.2 g/dL3.4-5.0[facility] HospitalALP [Catalytic activity/Vol]82 U/G36-803FjpkidomeThe Christ HospitalALT [Catalytic activity/Vol]12 U/L 14-59The [facility] HospitalAST [Catalytic activity/Vol]15 U/L15-37 [facility] HospitalBilirubin [Mass/Vol]0.4 mg/dL0.2-1.0[facility] HospitalCalcium [Mass/Vol]9.1 mg/dL8.5-10.1FThe Jewish HospitalChloride [Moles/Vol]107 mmol/I91-476NtxgzznbuThe Christ HospitalCO2 [Moles/Vol]27.8 mmol/L21.0-32.0[facility] Creatinine [Mass/Vol]0.92 mg/dL0.55-1.02[facility] GFR/1.73 sq M.predicted MDRD (S/P/Bld) [Vol rate/Area]mL/min/{1.73_m2}>=60 [facility] HospitalGlucose [Mass/Vol]90 mg/jT95-175JhgobtptpThe Christ HospitalNatriuretic peptide B (Bld) [Mass/Vol]152.0 pg/mL<=450.0 [facility] HospitalPotassium [Moles/Vol]4.0 mmol/L3.5-5.1FThe Jewish HospitalProtein [Mass/Vol]6.8 g/dL6.4-8.2FPremier Health Miami Valley Hospital Northodium [Moles/Vol]141 mmol/X017-748EybxztmslThe Christ HospitalUrea nitrogen [Mass/Vol]14.0 mg/dL7.0-18.0[facility] HospitalUrea nitrogen/Creatinine [Mass ratio]15.2 mg/mgThe Christ HospitalLaboratory - Hematology and Cell countson 02-27-4409Kdiphxvi granulocytes/100 WBC (Bld)0.2 %0.0-0.5FThe Jewish Hospital Leukocytes [#/volume] corrected for nucleated erythrocytes in Blood by Automated counon 04-45-9841GCC corrected for nucl RBC Auto (Bld) [#/Vol]5.5 10 3/uL 4.0-11.0[facility] HospitalLymphocytes Auto (Bld) [#/Vol]on 34-45-8310Eozrbrcbswt (Bld) [#/Vol]1.4 10 3/uL1.2-3.8The [facility] HospitalLymphocytes/100 WBC Auto (Bld)on 50-83-2096Jwiawxguktw/100 WBC (Bld)25.2 % 20.5-60.0[facility] SystemH Auto (RBC) [Entitic mass]on 77-18-1070ONF (RBC) [Entitic mass]31.8 pg26.7-34.0The [facility] HospitalMCHC Auto (RBC) [Mass/Vol]on 20-47-8103CPKN (RBC) [Mass/Vol]32.9 g/dL 29.9-35.2FThe Jewish HospitalMCV Auto (RBC) [Entitic vol]on 67-80-7097WVX (RBC) [Entitic vol]96.7 fL81.0-99.0[facility] HospitalMonocytes Auto (Bld) [#/Vol]on 13-39-2939Qkpyvbfyr (Bld) [#/Vol]0.4 10 3/uL0.3-0.8The [facility] HospitalMonocytes/100 WBC Auto (Bld)on 25-96-8664Mfvqfkeai/100 WBC (Bld)7.3 %1.7-12.0[facility] Neutrophils Auto (Bld) [#/Vol]on 24-19-9994Vlpuybufrtb (Bld) [#/Vol]3.6 10 3/uL 1.4-6.5FThe Jewish HospitalNeutrophils/100 WBC Auto (Bld)on 81-30-8210Vviwwagwnpd/100 WBC (Bld)65.8 %43.0-75.0[facility] HospitalNo Panel Informationon 54-96-2536Zwmkbcutvqf # (Auto)0.1 10 3/uL0.0-0.7 [facility] HospitalImmature Granulocyte # (Auto)0.01 10 3/uL 0.00-0.03The [facility] HospitalTroponin I High Sensitivity4.1 pg/mL 4.0-51.3FThe Jewish HospitalComment on above:CUT-OFF POINTS HAVE BEEN ESTABLISHED BASED ON THE FOURTHUNIVERSAL DEFINITION OF MYOCARDIAL INFARCTIO N. THE UPPERREFERENCE LIMIT (URL) OF TROPONIN, DEFINED THE 99THPERCENTILE OF cTnI DISTRIBUTION IN A REFERENCE POPULATION,HAS BEEN CONFIRMED THE DECISION THRESHOLD FOR MIDIAGNOSIS.99TH PERCENTILE = 51.4 PG/MLNOTE: HIGH-SENSITIVITY TROPONIN ASSAY IS NOT INTENDED TO BEUSED IN ISOLATION BUT SHOULD BE INTERPRETED IN CONJUNCTIONWITH OTHER DIAGNOSTIC AND CLINICAL INFORMATION.Platelet mean volume Auto (Bld) [Entitic vol]on 63-70-7352Naozdubj mean volume (Bld) [Entitic vol]9.4 fL9.5-13.5FThe Jewish HospitalPlatelets Auto (Bld) [#/Vol] on 52-80-9185Lcoaivvfh (Bld) [#/Vol]154 10 3/hH173-532LqvfmdtqvThe Christ HospitalProthrombin time (PT)on 88-52-7613ZD Coag (PPP) [Time]10.4 s9.0-11.6 [facility] HospitalRBC Auto (Bld) [#/Vol]on 34-51-7007XCX (Bld) [#/Vol]3.65 10 6/uL4.20-5.40[facility], Cancer Centererum or plasma albumin/globulin mass ratioon 14-40-1132Uslshnc/Globulin [Mass ratio]0.9 {ratio} [facility] Cancer Centererum or plasma anion gap determinationon 24-19-7330Gztvt gap [Moles/Vol]10.2 mmol/LFThe Jewish Hospital Basophils Auto (Bld) [#/Vol]on 18-78-7180Mjhkzvofd (Bld) [#/Vol]0.0 10 3/uL 0.0-0.1FThe Jewish HospitalBasophils/100 WBC Auto (Bld)on 81-01-5166Ziunqycae/100 WBC (Bld)0.6 %0.2-2.0[facility] Eosinophils/100 WBC Auto (Bld)on 54-74-8452Fdijdgcqpir/100 WBC (Bld)1.9 %0.9-7.0 [facility] HospitalErythrocyte distribution width Auto (RBC) [Ratio]on 81-28-6613Bdapoicsbln distribution width (RBC) [Ratio]13.0 %11.0-15.0 [facility] HospitalEstimated glomerular filtration rate (GFR) non- Americanon 18-83-2719ZIE/1.73 sq M.predicted among non-blacks MDRD (S/P/Bld) [Vol rate/Area]mL/min/{1.73_m2}>=60[facility] Globulin Calc (S) [Mass/Vol]on 09-66-1905Lpunadkh (S) [Mass/Vol]3.3 g/dL [facility] HospitalHematocrit Auto (Bld) [Volume fraction]on 48-33-1911Keqfritzuu (Bld) [Volume fraction]34.1 %36.0-48.0[facility] HospitalHemoglobin [Mass/volume] in Bloodon 64-98-8102Sfvdqwbmep (Bld) [Mass/Vol]11.0 g/dL12.0-16.0[facility] HospitalINR in Platelet poor plasma by Coagulation assayon 83-60-5597FKP Coag (PPP) [Relative time]1.02 {INR}The Christ HospitalComment on above:DESIRED INR:2.0-3.0 CONDITIONS NOT LISTED BELOW2.5-3.5 FOR PROSTHETIC HEART VALVE REPLACEMENT2.5-3.5 RECURRENT THROMBOSISLaboratory - Chemistry and Chemistry - challengeon 43-19-6760Ttuerpu [Mass/Vol]2.8 g/dL3.4-5.0[facility] HospitalALP [Catalytic activity/Vol]74 U/J85-071GunmyezfnThe Christ HospitalALT [Catalytic activity/Vol]12 U/D40-82PkakogadcThe Christ HospitalAST [Catalytic activity/Vol]11 U/E60-93MpdhvmnheThe Christ HospitalBilirubin [Mass/Vol]0.5 mg/dL0.2-1.0[facility] HospitalCalcium [Mass/Vol]9.0 mg/dL8.5-10.1FThe Jewish HospitalChloride [Moles/Vol]106 mmol/L 98-107The [facility] HospitalCO2 [Moles/Vol]25.5 mmol/L21.0-32.0 [facility] HospitalCreatinine [Mass/Vol]0.76 mg/dL0.55-1.02 [facility] HospitalGFR/1.73 sq M.predicted MDRD (S/P/Bld) [Vol rate/Area]mL/min/{1.73_m2}>=60The [facility] HospitalGlucose [Mass/Vol]87 mg/nT95-553ByvutgvgrThe Christ HospitalLactate [Moles/Vol]1.1 mmol/L0.4-2.0[facility] HospitalPotassium [Moles/Vol]4.2 mmol/L 3.5-5.1FThe Jewish HospitalProtein [Mass/Vol]6.1 g/dL6.4-8.2 [facility] Cancer Centerodium [Moles/Vol]140 mmol/N822-573VftgqgysyThe Christ HospitalUrea nitrogen [Mass/Vol]8.0 mg/dL7.0-18.0[facility] HospitalUrea nitrogen/Creatinine [Mass ratio]10.5 mg/mgThe Christ HospitalLaboratory - Coagulationon 92-28-9541jFVA Coag (Bld) [Time]81.9 s48.2-68.6FThe Jewish HospitalComment on above:RESULTS CALLED TO Gretta COFFEY)@BY Estela Montanez MLT at 0504Laboratory - Hematology and Cell countson 90-50-6461Lyknwqma granulocytes/100 WBC (Bld)0.2 % 0.0-0.5FThe Jewish HospitalLeukocytes [#/volume] corrected for nucleated erythrocytes in Blood by Automated counon 99-29-8219QRK corrected for nucl RBC Auto (Bld) [#/Vol]4.7 10 3/uL4.0-11.0[facility] Lymphocytes Auto (Bld) [#/Vol]on 60-68-5103Gkpmxvvbvex (Bld) [#/Vol]1.8 10 3/uL 1.2-3.8The [facility] HospitalLymphocytes/100 WBC Auto (Bld)on 82-22-9321Kqynhnozogk/100 WBC (Bld)37.7 %20.5-60.0[facility] SystemH Auto (RBC) [Entitic mass]on 10-74-3787HXJ (RBC) [Entitic mass]31.4 pg 26.7-34.0The [facility] HospitalMCHC Auto (RBC) [Mass/Vol]on 46-52-8649DMEN (RBC) [Mass/Vol]32.3 g/dL29.9-35.2FThe Jewish HospitalMCV Auto (RBC) [Entitic vol]on 92-98-5156LYO (RBC) [Entitic vol]97.4 fL 81.0-99.0[facility] HospitalMonocytes Auto (Bld) [#/Vol]on 89-23-8181Xcdgeirqn (Bld) [#/Vol]0.3 10 3/uL0.3-0.8[facility] HospitalMonocytes/100 WBC Auto (Bld)on 18-03-9023Yxbcuihec/100 WBC (Bld)7.2 % 1.7-12.0[facility] HospitalNeutrophils Auto (Bld) [#/Vol]on 62-89-4935Yzcznurboou (Bld) [#/Vol]2.5 10 3/uL1.4-6.5FThe Jewish HospitalNeutrophils/100 WBC Auto (Bld)on 09-47-3386Qfnhnhdvgay/100 WBC (Bld)52.4 % 43.0-75.0[facility] HospitalNo Panel Informationon 10-27-2023 Eosinophils # (Auto)0.1 10 3/uL0.0-0.7FThe Jewish HospitalImmature Granulocyte # (Auto)0.01 10 3/uL0.00-0.03[facility] Platelet mean volume Auto (Bld) [Entitic vol]on 51-80-3351Hwynejds mean volume (Bld) [Entitic vol]9.9 fL9.5-13.5FThe Jewish HospitalPlatelets Auto (Bld) [#/Vol]on 21-46-0708Qcsylqvxi (Bld) [#/Vol]122 10 3/vJ731-230RedmvpuqeThe Christ HospitalProthrombin time (PT)on 20-46-9950CH Coag (PPP) [Time] 10.8 s9.0-11.6FThe Jewish HospitalRBC Auto (Bld) [#/Vol]on 00-12-1930PNE (Bld) [#/Vol]3.50 10 6/uL4.20-5.40[facility] Cancer Centererum or plasma albumin/globulin mass ratioon 13-54-7443Kewtwxr/Globulin [Mass ratio]0.8 {ratio}[facility] Centererum or plasma anion gap determinationon 91-35-7880Gwodx gap [Moles/Vol]12.7 mmol/LFThe Jewish HospitalAmorphous urine sedimenton 77-72-1645Rmyylurhc sediment LM Ql (Urine sed)FEWThe Christ HospitalAutomated epithelial cells count in urine sediment (number/area)on 49-90-3168Fqcxklhums cells Auto (Urine sed) [#/Area]MANY #/LPFNONE/RAREThe Christ HospitalBacteria [Presence] in Urine by Automatedon 20-42-4282Hwmjtazq Auto Ql (U)NONE SEEN #/HPFNONE SEEN [facility] HospitalBasophils Auto (Bld) [#/Vol]on 10-26-2023 Basophils (Bld) [#/Vol]0.0 10 3/uL0.0-0.1FThe Jewish Hospital Basophils/100 WBC Auto (Bld)on 64-78-9447Qoiotqrdn/100 WBC (Bld)0.5 %0.2-2.0 [facility] HospitalBilirubin Auto test strip (U) [Mass/Vol]on 69-90-8563Yhxjgzksn (U) [Mass/Vol]NegativeNEGATIVEThe Christ HospitalCasts typing in urine sediment by light microscopyon 90-34-8050Wlpfe LM Nom (Urine sed)NONE SEEN #/LPFNONE [facility] Eosinophils/100 WBC Auto (Bld)on 12-00-0404Nzthfwckdjl/100 WBC (Bld)1.4 %0.9-7.0 [facility] HospitalErythrocyte distribution width Auto (RBC) [Ratio]on 37-00-2352Kjfbxjrxakq distribution width (RBC) [Ratio]12.7 %11.0-15.0 [facility] HospitalEstimated glomerular filtration rate (GFR) non- Americanon 90-92-0295FCA/1.73 sq M.predicted among non-blacks MDRD (S/P/Bld) [Vol rate/Area]mL/min/{1.73_m2}>=60[facility] Globulin Calc (S) [Mass/Vol]on 94-60-6061Pfbpfvoh (S) [Mass/Vol]4.2 g/dL [facility] HospitalHCG ( test) IA.rapid Ql (U)on 66-74-1541JTR ( test) Ql (U)NegativeNEGATIVEThe Christ HospitalHematocrit Auto (Bld) [Volume fraction]on 36-35-1013Isvszwbgcs (Bld) [Volume fraction]38.5 %36.0-48.0[facility] HospitalHemoglobin [Mass/volume] in Bloodon 14-72-8166Mqvgiahzkn (Bld) [Mass/Vol]12.7 g/dL12.0-16.0 [facility] HospitalINR in Platelet poor plasma by Coagulation assayon 62-23-9144PUK Coag (PPP) [Relative time]0.96 {INR}[facility] HospitalComment on above:DESIRED INR:2.0-3.0 CONDITIONS NOT LISTED BELOW2.5-3.5 FOR PROSTHETIC HEART VALVE REPLACEMENT2.5-3.5 RECURRENT THROMBOSIS Laboratory - Chemistry and Chemistry - challengeon 10-11-6784Aomlpwj (U) [Mass/Vol]NegativeNEGATIVEThe Christ HospitalKetones Ql (U) NegativeNEGAdena Pike Medical CenterpH (U)6.0 [pH]5.0-9.0[facility], Cancer Centerpecific gravity (U) [Rel density]>=1.0301.005-1.025 [facility] HospitalUrobilinogen Qn (U)1.0 {José'U}/dL0.2-1.0 [facility] HospitalAlbumin [Mass/Vol]3.4 g/dL3.4-5.0[facility] HospitalALP [Catalytic activity/Vol]98 U/I76-615FuqbmbonqThe Christ HospitalALT [Catalytic activity/Vol]11 U/B70-01PbxfbgehjThe Christ HospitalAST [Catalytic activity/Vol]9 U/Z48-07AriflbmziThe Christ HospitalBilirubin [Mass/Vol]0.5 mg/dL0.2-1.0[facility] Calcium [Mass/Vol]9.5 mg/dL8.5-10.1FThe Jewish HospitalChloride [Moles/Vol]104 mmol/E58-369MwngokwpqThe Christ HospitalCO2 [Moles/Vol]25.6 mmol/L21.0-32.0The [facility] HospitalCreatinine [Mass/Vol]0.94 mg/dL 0.55-1.02The [facility] HospitalGFR/1.73 sq M.predicted MDRD (S/P/Bld) [Vol rate/Area]mL/min/{1.73_m2}>=60The [facility] HospitalGlucose [Mass/Vol]96 mg/xH74-734PfhczppihThe Christ HospitalLactate [Moles/Vol]2.3 mmol/L0.4-2.0The [facility] HospitalComment on above:RESULTS CALLED TO Dustin VasquezRN)@BY Estela MontanezHYDRAULIC AUTO JACK MECHANIC at 2012Natriuretic peptide B (Bld) [Mass/Vol]55.0 pg/mL<=450.0[facility] HospitalPotassium [Moles/Vol]3.2 mmol/L3.5-5.1FThe Jewish HospitalProtein [Mass/Vol] 7.6 g/dL6.4-8.2FPremier Health Miami Valley Hospital Northodium [Moles/Vol]140 mmol/L 136-145The [facility] HospitalTSH Qn3.806 m[IU]/L0.358-3.740The [facility] HospitalUrea nitrogen [Mass/Vol]10.0 mg/dL7.0-18.0The [facility] HospitalUrea nitrogen/Creatinine [Mass ratio]10.6 mg/mgThe [facility] HospitalLaboratory - Hematology and Cell countson 10-26-2023 Immature granulocytes/100 WBC (Bld)0.3 %0.0-0.5FThe [facility] Hospital Laboratory - Specimen informationon 66-53-6541Wdqhocrqbo (U)CLEARCLEARFThe Jewish HospitalColor (U)LT. YELLOWYELLOWThe [facility] HospitalLaboratory - Urinalysison 69-59-1512Aijlnzphq esterase Test strip Ql (U) SMALLNEGATIVEThe Christ HospitalNitrite Ql (U)NegativeNEGATIVE The [facility] HospitalProtein Ql (U)NegativeNEG/TRACEThe Christ HospitalLeukocytes [#/area] in Urine sediment by Automated count on 72-77-4049YQA Auto (Urine sed) [#/Area]NONE SEEN #/HPF0-2FThe Jewish HospitalLeukocytes [#/area] in Urine sediment by Microscopy high power fieldon 49-02-3848BBA LM.HPF (Urine sed) [#/Area]5-10 #/HPFNONE SEENThe Christ HospitalLeukocytes [#/volume] corrected for nucleated erythrocytes in Blood by Automated counon 62-18-3846HFN corrected for nucl RBC Auto (Bld) [#/Vol]6.3 10 3/uL4.0-11.0[facility] Lymphocytes Auto (Bld) [#/Vol]on 58-51-3629Kavztnursws (Bld) [#/Vol]1.4 10 3/uL 1.2-3.8The [facility] HospitalLymphocytes/100 WBC Auto (Bld)on 87-90-5738Yuulsgcjyze/100 WBC (Bld)21.8 %20.5-60.0[facility]H Auto (RBC) [Entitic mass]on 79-71-5255FQY (RBC) [Entitic mass]31.8 pg 26.7-34.0[facility] SystemHC Auto (RBC) [Mass/Vol]on 94-27-0719WOEJ (RBC) [Mass/Vol]33.0 g/dL29.9-35.2FThe Jewish HospitalMCV Auto (RBC) [Entitic vol]on 74-00-7139YYG (RBC) [Entitic vol]96.5 fL 81.0-99.0[facility] HospitalMonocytes Auto (Bld) [#/Vol]on 77-21-0435Owmtzpsfu (Bld) [#/Vol]0.5 10 3/uL0.3-0.8The [facility] HospitalMonocytes/100 WBC Auto (Bld)on 58-35-0289Rylldnxsk/100 WBC (Bld)7.2 % 1.7-12.0[facility] HospitalMucus LM Ql (Urine sed)on 10-26-2023 Mucus Ql (Urine sed)SMALLNONE SEENThe Christ HospitalNeutrophils Auto (Bld) [#/Vol]on 95-52-1017Fxuedweprtb (Bld) [#/Vol]4.3 10 3/uL1.4-6.5 [facility] HospitalNeutrophils/100 WBC Auto (Bld)on 10-26-2023 Neutrophils/100 WBC (Bld)68.8 %43.0-75.0[facility] HospitalNo Panel Informationon 68-33-4985Kmznx Culture ReflexedAvita Health System Ontario HospitalUrine Microscopic ReviewAvita Health System Ontario Hospital Eosinophils # (Auto)0.1 10 3/uL0.0-0.7FThe Jewish HospitalImmature Granulocyte # (Auto)0.02 10 3/uL0.00-0.03[facility] Troponin I High Sensitivity<4.0 pg/mL4.0-51.3FThe [facility] Hospital Comment on above:CUT-OFF POINTS HAVE BEEN ESTABLISHED BASED ON THE FOURTHUNIVERSAL DEFINITION OF MYOCARDIAL INFARCTION. THE UPPERREFERENCE LIMIT (URL) OF TROPONIN, DEFINED THE 99THPERCENTILE OF cTnI DISTRIBUTION IN A REFERENCE POPULATION,HAS BEEN CONFIRMED THE DECISION THRESHOLD FOR MIDIAGNOSIS.99TH PERCENTILE = 51.4 PG/MLNOTE: HIGH-SENSITIVITY TROPONIN ASSAY IS NOT INTENDED TO BEUSED IN ISOLATION BUT SHOULD BE INTERPRETED IN CONJUNCTIONWITH OTHER DIAGNOSTIC AND CLINICAL INFORMATION.Platelet mean volume Auto (Bld) [Entitic vol]on 01-17-3494Kkyffufz mean volume (Bld) [Entitic vol]9.8 fL9.5-13.5FThe Jewish HospitalPlatelets Auto (Bld) [#/Vol]on 90-90-6909Yhlukdpou (Bld) [#/Vol]138 10 3/rL019-865KwopownjjThe Christ HospitalProthrombin time (PT)on 64-89-8451NZ Coag (PPP) [Time]10.2 s9.0-11.6 [facility] HospitalRBC Auto (Bld) [#/Vol]on 67-31-5075SXZ (Bld) [#/Vol]3.99 10 6/uL4.20-5.40[facility] Cancer Centererum or plasma albumin/globulin mass ratioon 28-94-0515Owlkzqv/Globulin [Mass ratio]0.8 {ratio} [facility] Cancer Centererum or plasma anion gap determinationon 41-24-1113Fzpiw gap [Moles/Vol]13.6 mmol/LFThe Jewish HospitalUrine hemoglobin detection by automated test stripon 60-41-3871Fkrqsloqql Auto test strip Ql (U)NegativeNEGATIVEThe Christ HospitalUrine sediment crystal identification by light microscopyon 10-74-4840Lfyytutz LM Nom (Urine sed)None Seen #/HPFNone SeenThe Christ HospitalCardiac Device Check - Remoteon 76-86-2147Oyxaiocja Study observation (narrative)[facility] Work Phone: Cardiac Device Check - RemoteOrdered By: Rita Olivia on 62-94-6527AvubxcmoihProvidence Hospital Work Phone: Office Visit (Cardiology)on 58-83-3352Heuwkr-up visit Diagnoses/Problems Assessed Complete heart block (426.0) [...] Lead; Status:Active - Perform Order,Retrospective Authorization; Requested for:[id number]; Cardiac pacemaker, Sinus bradycardia, Sinus node dysfunction, Sinus tachycardia Interr. Device Eval - Sngl/Dual/Multiple Pacemaker; Status:Hold For - Scheduling,Retrospective Authorization; Requested for:[id number]; Class 2 obesity with body mass index [...] with Dr. Rita Olivia MD, FACC, FACP, RS Continue same medications/treatment. Patient educated on proper [...] ECG December 2021 Device Check: Today. [employer] 2272 pacemaker. On field alert. Discussed [...] 4-second pause by loop recorder. History of negativeEP [...] ago. No arrhythmias iss (more content not included)...NormalUH TouchworksTobacco Screening.on 49-43-3555Oxgel depression screening assessmentNoState [facility] DO Work Phone: Fall risk assessmenta) No falls within the last year [facility] [employer] [facility] DO Work Phone: Tobacco use status CPHSb) NoMLocated Within [facility] [employer] [address] DO Work Phone: Alanine aminotransferase [Enzymatic activity/volume] in Serum or PlasmaOrdered By: Ke Cage on 80-89-5205ZQR [Catalytic activity/Vol]13 U/L7-52The [facility] HospitalAlbumin [Mass/volume] in Serum or Plasma by Bromocresol green (BCG) dye binding methoOrdered By: Ke Cage on 04-99-6235Zxznrtu BCG dye [Mass/Vol]4.8 g/dL3.5-5.7FThe Jewish HospitalAlkaline phosphatase [Enzymatic activity/volume] in Serum or PlasmaOrdered By: Ke Cage on 87-35-9357VYH [Catalytic activity/Vol]83 U/I86-558LohlgzfhjThe Christ HospitalAmphetamine Screen Ql (U)Ordered By: Ke Cage on 34-28-5105Godmpgyizvyk Ql (U)NegativeNegativeThe Christ HospitalAspartate aminotransferase [Enzymatic activity/volume] in Serum or PlasmaOrdered By: Ke aCge on 56-91-8915DPL [Catalytic activity/Vol]20 U/L 13-39The [facility] HospitalAutomated erythrocytes count in urine sediment (number/area)Ordered By: Ke Cage on 14-39-2290IVG Auto (Urine sed) [#/Area]0-1 [HPF]0-4FThe Jewish HospitalAutomated leukocytes count in urine sediment (number/area)Ordered By: Ke Cage on 06-53-4837ESR Auto (Urine sed) [#/Area]5-9 [HPF]0-4FThe [facility] Hospital Barbiturates [Presence] in Urine by Screen methodOrdered By: Ke Cage on 61-15-6725Smokzqdcusdf Screen Ql (U)NegativeNegativeThe Christ HospitalBasophils Auto (Bld) [#/Vol]Ordered By: Ke Cage on 12-11-2022 Basophils (Bld) [#/Vol]0.0 10*3/uL0.0-0.2FThe [facility] Hospital Basophils/100 WBC Auto (Bld)Ordered By: Ke Cage on 70-77-0022Rxnjpsbqj/100 WBC (Bld)0.7 %.The [facility] HospitalBenzodiazepines Screen Ql (U) Ordered By: Ke Cage on 64-52-0008Nxfavetuisoebjg Ql (U)NegativeNegative The [facility] HospitalBenzoylecgonine [Presence] in Urine by Screen methodOrdered By: Ke Cage on 65-32-0866Pqwlypzfwgrpovd Screen Ql (U) NegativeNegativeThe Christ HospitalBilirubin Auto test strip Ql (U)Ordered By: Ke Cage on 56-32-6838Dbtfmpptl Ql (U)NegativeNegative The [facility] HospitalBilirubin.total [Mass/volume] in Serum or PlasmaOrdered By: Ke Cage on 55-26-5987Hkppzmnot [Mass/Vol]0.6 mg/dL 0.3-1.0The [facility] HospitalCalcium [Mass/volume] in Serum or Plasma Ordered By: Ke Cage on 65-07-0557Bpkuwcv [Mass/Vol]9.9 mg/dL8.6-10.3 The [facility] HospitalCannabinoids [Presence] in Urine by Screen methodOrdered By: Ke Cage on 84-54-5135Ilbwgzceyqae Screen Ql (U)Negative NegativeThe Christ HospitalComment on above:These are unconfirmed results and should not be used for legal purposes. Drug Cut-Off Concentration: AMPH 1000 ng/mL BOO 200 ng/mL HELGA 200 ng/mL COCM 300 ng/mL OP 300 ng/mL PCP 25 ng/mL THC 20 ng/mLCarbon dioxide, total [Moles/volume] in Serum or Plasma Ordered By: Ke Cage on 70-53-6434ED2 [Moles/Vol]24.2 mmol/L21.0-31.0 The [facility] HospitalChloride [Moles/volume] in Serum or Plasma Ordered By: Ke Cage on 64-82-7240Bobppukq [Moles/Vol]107 mmol/L98-107 The [facility] HospitalCholesterol [Mass/volume] in Serum or Plasma Ordered By: Eduardo Swain on 18-15-9983Patdjuxabkp [Mass/Vol]229 mg/qI811-823 The [facility] HospitalComment on above:Chol less than 200 mg/dl low riskChol 201-239 mg/dl borderline riskChol 240 mg/dl and greater high risk Cholesterol in LDL Calc [Mass/Vol]Ordered By: Eduardo Swain on 12-11-2022 Cholesterol in LDL [Mass/Vol]129 mg/dL0-100[facility] Comment on above:LDL ATP III CLASSIFICATIONLDL less than 100 mg/dL OptimalLDL 100-129 mg/dL Near or above kuzpkhuDZQ186-954 mg/dL Borderline highLDL 160-189 mg/dL HighLDL greater than 189 mg/dL Very highCholesterol in VLDL Calc [Mass/Vol]Ordered By: Eduardo Swain on 27-22-8402Ywrttrhvbbq in VLDL [Mass/Vol] 13 mg/dLThe Christ HospitalCreatinine [Mass/volume] in Serum or PlasmaOrdered By: Ke Cage on 82-17-5008Sxquzshnlo [Mass/Vol]0.78 mg/dL 0.60-1.20The [facility] HospitalEosinophils Auto (Bld) [#/Vol]Ordered By: Ke Cage on 88-58-1208Xorfjoptdjt (Bld) [#/Vol]0.1 10*3/uL0.0-0.45 The [facility] HospitalEosinophils/100 WBC Auto (Bld)Ordered By: Ke Cage on 34-50-9067Rthlmomckwu/100 WBC (Bld)2.2 %.The [facility] HospitalErythrocyte distribution width Auto (RBC) [Ratio]Ordered By: Ke Cage on 20-03-2537Ajbdyiszqzm distribution width (RBC) [Ratio]12.9 %11.9-15.3 The [facility] HospitalEthanol [Mass/volume] in Serum or PlasmaOrdered By: Ke Cage on 96-94-7612Bricbzk [Mass/Vol]mg/dLThe Christ HospitalEthanol [Mass/Vol]TNPThe Christ HospitalComment on above:Test not performedGlobulin Calc (S) [Mass/Vol]Ordered By: Ke Cage on 93-14-8085Xbcitsby (S) [Mass/Vol]2.7 g/dLThe [facility] Hospital Glucose [Mass/volume] in Serum or PlasmaOrdered By: Ke Cage on 12-11-2022 Glucose [Mass/Vol]87 mg/pE63-182AhohvholtThe Christ HospitalComment on above:ADA recommended reference rangeRandom Glucose Reference Range is dependent on time and content of last meal. Glucose of more than 200 mg/dL in a nonstressed, ambulatory subject supports the diagnosisof Diabetes Mellitus.HCG ( test) IA.rapid Ql (U)Ordered By: Ke Cage on 44-11-2415OYK ( test) Ql (U)NegativeThe Christ HospitalHematocrit Auto (Bld) [Volume fraction]Ordered By: Ke Cage on 62-18-3023Askvjtrtaq (Bld) [Volume fraction]41.8 %34.0-46.4FThe Jewish HospitalHemoglobin [Mass/volume] in BloodOrdered By: Ke Cage on 84-71-0789Hbrnczwloa (Bld) [Mass/Vol]14.2 g/dL11.8-15.4FThe Jewish HospitalKetones Auto test strip (U) [Mass/Vol]Ordered By: Ke Cage on 52-12-0012Vbvmnln (U) [Mass/Vol]NegativeNegativeThe [facility] HospitalLaboratory - UrinalysisOrdered By: Ke Cage on 77-06-6528Lsirzfz casts LM Ql (Urine sed) 0-8 [LPF]0-8The [facility] HospitalLeukocytes [#/volume] corrected for nucleated erythrocytes in Blood by Automated counOrdered By: Ke Cage on 51-27-0213LNH corrected for nucl RBC Auto (Bld) [#/Vol]5.8 10*3/uL3.8-11.6 The [facility] HospitalLymphocytes Auto (Bld) [#/Vol]Ordered By: Ke Cage on 98-62-0581Lwseaxccekn (Bld) [#/Vol]1.7 10*3/uL1.00-4.8The [facility] HospitalLymphocytes/100 WBC Auto (Bld)Ordered By: Ke Cage on 60-91-9204Zoewlzrfhse/100 WBC (Bld)28.6 %.[facility] MCH Auto (RBC) [Entitic mass]Ordered By: Ke Cage on 33-08-0208FBK (RBC) [Entitic mass]32.4 pg24.7-34.3FThe Jewish HospitalMCHC Auto (RBC) [Mass/Vol]Ordered By: Ke Cage on 13-03-7794AMBD (RBC) [Mass/Vol]33.9 g/dL 32.0-35.0The [facility] HospitalMCV Auto (RBC) [Entitic vol]Ordered By: Ke Cage on 96-57-6803FQK (RBC) [Entitic vol]95.4 qX48-799IcyzblxodThe Christ HospitalMonocyte distribution width [Entitic volume] in Blood by AutomatedOrdered By: Ke Cage on 58-23-5711Jjqzixdf distribution width Auto (Bld) [Entitic vol]17.61 %0.00-20.00The [facility] HospitalMonocytes Auto (Bld) [#/Vol]Ordered By: Ke Cage on 94-90-3533Oyhfhbmhi (Bld) [#/Vol] 0.5 10*3/uL0.0-0.8The [facility] HospitalMonocytes/100 WBC Auto (Bld) Ordered By: Ke Cage on 30-30-2682Xqnebuldj/100 WBC (Bld)8.1 %.The [facility] HospitalNeutrophils Auto (Bld) [#/Vol]Ordered By: Ke Cage on 93-67-0395Wbvenrrzcak (Bld) [#/Vol]3.5 10*3/uL1.8-7.7FThe Jewish HospitalNeutrophils/100 WBC Auto (Bld)Ordered By: Ke Cage on 79-62-6552Sqkpibcjfli/100 WBC (Bld)60.4 %.The [facility] HospitalNo Panel InformationOrdered By: Ke Cage on 97-39-9313Yinrpxcju GFR (CKD-EPI)> 60.0 mL/MinThe Christ HospitalPharmacy Creatinine Clearance (Chem 119.76The [facility] HospitalNucleated erythrocytes [Presence] in Blood by Automated countOrdered By: Ke Cage on 52-81-6179Xgjiutqpl RBC Auto Ql (Bld)0.1 /100{WBC}0-0.5FThe Jewish HospitalOpiates [Presence] in Urine by Screen methodOrdered By: Ke Cage on 12-11-2022 Opiates Screen Ql (U)NegativeNegativeThe [facility] Phencyclidine Screen Ql (U)Ordered By: Ke Cage on 44-32-3997Fifsllbdzqiaw Ql (U)NegativeNegativeThe Christ HospitalPlatelet mean volume Auto (Bld) [Entitic vol]Ordered By: Ke Cage on 10-84-5656Cycnotzg mean volume (Bld) [Entitic vol]7.9 fL6.3-10.7FThe Jewish HospitalPlatelets Auto (Bld) [#/Vol]Ordered By: Ke Cage on 50-74-2841Tmcjiwpmv (Bld) [#/Vol]185 10*3/nX463-337ExacfpgqfThe Christ HospitalPotassium [Moles/volume] in Serum or PlasmaOrdered By: Ke Cage on 80-13-4887Ptojcowab [Moles/Vol]3.8 mmol/L 3.5-5.1FThe Jewish HospitalProtein Auto test strip (U) [Mass/Vol] Ordered By: Ke Cage on 65-11-0812Yaqiado (U) [Mass/Vol]NegativeNegative [facility] HospitalProtein [Mass/volume] in Serum or PlasmaOrdered By: Ke Cage on 59-90-2225Gnjvywh [Mass/Vol]7.5 g/dL6.4-8.9The [facility] HospitalRBC Auto (Bld) [#/Vol]Ordered By: Ke Cage on 25-11-1686LJJ (Bld) [#/Vol]4.38 10*6/uL3.60-5.00[facility] Centererum or plasma albumin/globulin mass ratioOrdered By: Ke Cage on 05-17-1541Sxzaozg/Globulin [Mass ratio]1.8 {ratio}[facility] Centererum or plasma anion gap determinationOrdered By: Ke Cage on 99-15-2478Icuwy gap [Moles/Vol]12.6 mmol/L6.0-15.0[facility] Cancer Centererum or plasma high density lipoprotein (HDL) cholesterol measurement Ordered By: Eduardo Swain on 20-26-8978Kvrvumutsue in HDL [Mass/Vol]87 mg/dL 23-92The [facility] HospitalComment on above:HDL CHOL ATP-III CLASSIFICATION Cardiovascular RiskHDL > or equal to 60 mg/dL LOWHDL < 40 mg/dL HIGHSerum or plasma total cholesterol/high density lipoprotein (HDL) cholesterol mass ratOrdered By: Eduardo Swain on 52-50-4087Xznryaitowq.total/Cholesterol in HDL [Mass ratio]2.6 {ratio}<5.0[facility] Cancer Centerodium [Moles/volume] in Serum or PlasmaOrdered By: Ke Cage on 53-70-8420Chfgpk [Moles/Vol]140 mmol/V425-746BbfrvihuyOhioHealth Arthur G.H. Bing, MD, Cancer Centerquamous epithelial cells detection in urine sediment by light microscopyOrdered By: Ke Cage on 16-56-7940Zjilevsdlq cells.squamous LM Ql (Urine sed)3-4 [HPF]0-2FThe Jewish HospitalThyrotropin [Units/volume] in Serum or PlasmaOrdered By: Eduardo Swian on 22-43-7530TRG Qn1.24 m[IU]/L0.45-5.33The [facility] HospitalTriglyceride [Mass/volume] in Serum or PlasmaOrdered By: Eduardo Swain on 89-91-7444Zscueskzjqir [Mass/Vol]66 mg/dL0-149The [facility] HospitalComment on above:TRIG ATP III CLASSIFICATIONTRIG less than 150 mg/dL NormalTRIG 150-199 mg/dL Borderline highTRIG 200-500 mg/dL High TRIG greater than 500 mg/dL Very highStandard traceable to the Center for Disease Co nrtrol and Prevention (CDC) test method.Urea nitrogen [Mass/volume] in Serum or PlasmaOrdered By: Ke Cage on 23-69-3126Zhkg nitrogen [Mass/Vol]7 mg/dL7-25 The [facility] HospitalUrine appearanceOrdered By: Ke Cage on 63-79-2225Lvwhysrkge (U)Slightly cloudyClearFThe [facility] Hospital Urine bacteria detection by automated methodOrdered By: Ke Cage on 99-92-0942Vbceeqwf Auto Ql (U)None seenNone SeenThe Christ HospitalUrine colorOrdered By: Ke Cage on 78-12-7514Djlta (U)YellowYellow The [facility] HospitalUrine culture routineOrdered By: Ke Cage on 09-66-9681Izsqiqzo identified Cx Nom (U)2 DaysThe Christ HospitalUrine glucose measurement by automated test strip (mass/volume)Ordered By: Ke Cage on 05-29-5242Wyawdsd Auto test strip (U) [Mass/Vol]Normal mg/dL NormalThe Christ HospitalUrine hemoglobin detection by automated test stripOrdered By: Ke Cage on 66-27-9676Gxuyilwkda Auto test strip Ql (U)NegativeNegativeThe Christ HospitalUrine leukocyte esterase detection by automated test stripOrdered By: Ke Cage on 12-11-2022 Leukocyte esterase Auto test strip Ql (U)2+NegativeThe Christ HospitalUrine nitrite detection by automated test stripOrdered By: Ke Cage on 35-93-0521Iqbmcoz Auto test strip Ql (U)NegativeNegMansfield HospitalUrobilinogen Auto test strip (U) [Mass/Vol]Ordered By: Ke Cage on 21-75-8197Nftzebgfeerf (U) [Mass/Vol]Normal mg/dLNormalThe [facility] HospitalVitamin D+Metabolites [Mass/volume] in Serum or Plasma Ordered By: Eduardo Swain on 23-52-4277Jczsiub D+Metabolites [Mass/Vol]36.5 ng/rF74-848KaenwyaayThe Christ HospitalComment on above:VITAMIN D STATUS 25(OH)VITAMIN D RANGE (ng/mL) Deficient <20 Insufficient 20 to <83Lzfbzpgunm06 to 100Reference: Franklyn MF,Benjamin GRAF, Andreina MARQUEZ, et al. Evaluation,treatment, and prevention of vitamin D deficiency; an Endocrine Society clinical practice guideline. JCEM. 2010; 96(7):1911-30.WBC Auto (Bld) [#/Vol]Ordered By: Ke Cage on 55-25-8171PEB (Bld) [#/Vol]5.8 10*3/uL 3.8-11.6FThe Jewish HospitalpH Auto test strip (U)Ordered By: Ke Cage on 59-61-2123fD (U)1.015 [pH]1.001-1.030The [facility] HospitalpH (U)6.0 [pH]5.0-9.0The [facility] HospitalBasophils Auto (Bld) [#/Vol]Ordered By: Afshan Hines on 22-24-4330Cpgxhljdu (Bld) [#/Vol]0.0 10*3/uL0.0-0.2FThe Jewish HospitalBasophils/100 WBC Auto (Bld) Ordered By: Afshan Hines on 95-24-1696Uyjnvrzvf/100 WBC (Bld)0.9 %.The [facility] HospitalCalcium [Mass/volume] in Serum or PlasmaOrdered By: Afshan Hines on 39-44-0460Vphtnuv [Mass/Vol]8.8 mg/dL8.6-10.3FThe Jewish HospitalCarbon dioxide, total [Moles/volume] in Serum or PlasmaOrdered By: Afshan Hines on 26-78-0326FT0 [Moles/Vol]26.4 mmol/L21.0-31.0[facility] HospitalChloride [Moles/volume] in Serum or PlasmaOrdered By: Afshan Hines on 40-66-0121Ogffnoab [Moles/Vol]107 mmol/X31-663CvgiejqgpThe Christ HospitalCreatinine [Mass/volume] in Serum or PlasmaOrdered By: Afshan Hines on 19-62-5943Boqmfqhhus [Mass/Vol]0.82 mg/dL0.60-1.20The [facility] HospitalEosinophils Auto (Bld) [#/Vol]Ordered By: Afshan Hines on 29-89-2915Vtfoxbfkizn (Bld) [#/Vol]0.2 10*3/uL0.0-0.45The [facility] HospitalEosinophils/100 WBC Auto (Bld)Ordered By: Afshan Hines on 17-65-1476Ozjfwnhtscz/100 WBC (Bld)4.2 %.[facility] Erythrocyte distribution width Auto (RBC) [Ratio]Ordered By: Afshan Hines on 68-70-9571Zectucsdvob distribution width (RBC) [Ratio]12.9 %11.9-15.3FThe Jewish HospitalGlucose [Mass/volume] in Serum or PlasmaOrdered By: Afshan Hines on 93-53-0566Sdxfxlv [Mass/Vol]74 mg/vY33-748ZhuqtbhvyThe Christ HospitalComment on above:ADA recommended reference rangeRandom Glucose Reference Range is dependent on time and content of last meal. Glucose of more than 200 mg/dL in a nonstressed, ambulatory subject supports the diagnosisof Diabetes Mellitus.Hematocrit Auto (Bld) [Volume fraction]Ordered By: Afshan Hines on 43-58-4508Xaulqvqscb (Bld) [Volume fraction]37.5 %34.0-46.4 [facility] HospitalHemoglobin [Mass/volume] in BloodOrdered By: Afshan Hines on 46-41-7310Uzkbtmwpkj (Bld) [Mass/Vol]12.5 g/dL11.8-15.4 [facility] HospitalLeukocytes [#/volume] corrected for nucleated erythrocytes in Blood by Automated counOrdered By: Afshan Hines on 11-01-2022 WBC corrected for nucl RBC Auto (Bld) [#/Vol]5.1 10*3/uL3.8-11.6FThe Jewish HospitalLymphocytes Auto (Bld) [#/Vol]Ordered By: Afshan Hines on 75-03-1219Gpeqlgzkbkv (Bld) [#/Vol]1.8 10*3/uL1.00-4.8The [facility] HospitalLymphocytes/100 WBC Auto (Bld)Ordered By: Afshan Hines on 92-06-6853Rbbajvipzpa/100 WBC (Bld)34.7 %.[facility]H Auto (RBC) [Entitic mass]Ordered By: Afshan Hines on 96-11-0778NRK (RBC) [Entitic mass]32.2 pg24.7-34.3FThe Jewish HospitalMCHC Auto (RBC) [Mass/Vol]Ordered By: Afshan Hines on 07-16-6518RPDC (RBC) [Mass/Vol]33.4 g/dL32.0-35.0The [facility] HospitalMCV Auto (RBC) [Entitic vol] Ordered By: Afshan Hines on 61-13-3527QSA (RBC) [Entitic vol]96.5 yI03-452 [facility] HospitalMonocytes Auto (Bld) [#/Vol]Ordered By: Afshan Hines on 22-95-6863Mdcfzwvlx (Bld) [#/Vol]0.3 10*3/uL0.0-0.8The [facility] HospitalMonocytes/100 WBC Auto (Bld)Ordered By: Afshan Hines on 79-55-0103Baeljeghm/100 WBC (Bld)6.1 %.[facility] Neutrophils Auto (Bld) [#/Vol]Ordered By: Afshan Hines on 11-01-2022 Neutrophils (Bld) [#/Vol]2.8 10*3/uL1.8-7.7FThe [facility] Hospital Neutrophils/100 WBC Auto (Bld)Ordered By: Afshan Hines on 11-01-2022 Neutrophils/100 WBC (Bld)54.1 %.The [facility] HospitalNo Panel InformationOrdered By: Afshan Hines on 36-99-7258Sxjgabuet GFR (CKD-EPI)> 60.0 mL/MinThe Christ HospitalPharmacy Creatinine Clearance (Chem 114.96The [facility] HospitalNucleated erythrocytes [Presence] in Blood by Automated countOrdered By: Afshan Hines on 77-62-0153Ujxbsasju RBC Auto Ql (Bld)0.1 /100{WBC}0-0.5FThe Jewish HospitalPlatelet mean volume Auto (Bld) [Entitic vol]Ordered By: Afshan Hines on 14-54-0648Lgzljubf mean volume (Bld) [Entitic vol]7.8 fL6.3-10.7FThe [facility] Hospital Platelets Auto (Bld) [#/Vol]Ordered By: Afshan Hines on 59-21-3725Xuidyreaz (Bld) [#/Vol]184 10*3/uJ076-522FkbspwtpfThe Christ HospitalPotassium [Moles/volume] in Serum or PlasmaOrdered By: Afshan Hines on 11-01-2022 Potassium [Moles/Vol]4.0 mmol/L3.5-5.1FThe Jewish HospitalRBC Auto (Bld) [#/Vol]Ordered By: Afshan Hines on 47-26-5655WIJ (Bld) [#/Vol]3.89 10*6/uL3.60-5.00[facility] Centererum or plasma anion gap determinationOrdered By: Afshan Hines on 25-85-9779Cpfpm gap [Moles/Vol]10.6 mmol/L6.0-15.0[facility] Centerodium [Moles/volume] in Serum or PlasmaOrdered By: Afshan Hines on 78-11-6080Qjsntw [Moles/Vol]140 mmol/L 136-145[facility] HospitalUrea nitrogen [Mass/volume] in Serum or PlasmaOrdered By: Afshan Hines on 86-62-4130Zusr nitrogen [Mass/Vol]14 mg/dL 7-25[facility] HospitalVitamin B12 ser/plasOrdered By: Afshan Hines on 84-56-9230Kjqbvfryv (Vitamin B12) [Mass/Vol]205 pg/vY525-172 [facility] HospitalWBC Auto (Bld) [#/Vol]Ordered By: Afshan Hines on 41-73-0268VNU (Bld) [#/Vol]5.1 10*3/uL3.8-11.6FThe Jewish HospitalAlanine aminotransferase [Enzymatic activity/volume] in Serum or PlasmaOrdered By: Afshan Hines on 07-18-9896LSF [Catalytic activity/Vol]10 U/L7-52[facility] HospitalAlbumin [Mass/volume] in Serum or Plasma by Bromocresol green (BCG) dye binding methoOrdered By: Afshan Hines on 37-47-8373Jvjwuyu BCG dye [Mass/Vol]3.4 g/dL3.5-5.7FThe Jewish HospitalAlkaline phosphatase [Enzymatic activity/volume] in Serum or PlasmaOrdered By: Afshan Hines on 23-76-5251VBA [Catalytic activity/Vol]66 U/L34-104 [facility] HospitalAspartate aminotransferase [Enzymatic activity/volume] in Serum or PlasmaOrdered By: Afshan Hines on 18-98-2852WRW [Catalytic activity/Vol]15 U/L19-11VpffnzczrThe Christ Hospital Bilirubin.total [Mass/volume] in Serum or PlasmaOrdered By: Afshan Hines on 87-69-0591Qaiauxyil [Mass/Vol]0.7 mg/dL0.3-1.0[facility] Globulin Calc (S) [Mass/Vol]Ordered By: Afshan Hines on 24-67-8575Etnkxfge (S) [Mass/Vol]2.2 g/dLThe Christ HospitalProtein [Mass/volume] in Serum or PlasmaOrdered By: Afshan Hines on 66-22-5420Pvswcrs [Mass/Vol]5.6 g/dL6.4-8.9[facility] Cancer Centererum or plasma albumin/globulin mass ratioOrdered By: Afshan Hines on 16-59-3232Ntzpbrc/Globulin [Mass ratio] 1.5 {ratio}[facility] HospitalCholesterol [Mass/volume] in Serum or PlasmaOrdered By: Nimesh Cerda on 83-42-5728Dotzqbhtwrc [Mass/Vol] 181 mg/uB027-728DchxaltfgThe Christ HospitalComment on above:Chol less than 200 mg/dl low riskChol 201-239 mg/dl borderline riskChol 240 mg/dl and greater high riskCholesterol in LDL Calc [Mass/Vol]Ordered By: Nimesh Cerda on 17-13-9032Hlyvjtmmtfj in LDL [Mass/Vol]99 mg/dL0-100The [facility] HospitalComment on above:LDL ATP III CLASSIFICATIONLDL less than 100 mg/dL OptimalLDL 100-129 mg/dL Near or above zuzgxbaXYF238-573 mg/dL Borderline highLDL 160-189 mg/dL HighLDL greater than 189 mg/dL Very highCholesterol in VLDL Calc [Mass/Vol]Ordered By: Nimesh Cerda on 10-63-1775Euzecdtvjep in VLDL [Mass/Vol]18 mg/dLOhioHealth Arthur G.H. Bing, MD, Cancer Centererum or plasma high density lipoprotein (HDL) cholesterol measurementOrdered By: Nimesh Cerda on 79-71-5167Jyvjiqhwfln in HDL [Mass/Vol]64 mg/sS20-17UwruzwfidThe Christ HospitalComment on above:HDL CHOL ATP-III CLASSIFICATION Cardiovascular RiskHDL > or equal to 60 mg/dL LOWHDL < 40 mg/dL HIGHSerum or plasma total cholesterol/high density lipoprotein (HDL) cholesterol mass rat Ordered By: Nimesh Cerda on 85-44-2484Qznjypbkbyc.total/Cholesterol in HDL [Mass ratio]2.8 {ratio}<5.0The [facility] HospitalThyrotropin [Units/volume] in Serum or PlasmaOrdered By: Nimesh Cerda on 10-29-2022 TSH Qn0.60 m[IU]/L0.45-5.33The [facility] HospitalTriglyceride [Mass/volume] in Serum or PlasmaOrdered By: Nimesh Cerda on 10-29-2022 Triglyceride [Mass/Vol]92 mg/dL0-149The [facility] HospitalComment on above:TRIG ATP III CLASSIFICATIONTRIG less than 150 mg/dL NormalTRIG 150-199 mg/dL Borderline highTRIG 200-500 mg/dL High TRIG greater than 500 mg/dL Very highStandard traceable to the Center for Disease Conrtrol and Prevention (CDC) test method.Vitamin D+Metabolites [Mass/volume] in Serum or PlasmaOrdered By: Nimesh Cerda on 07-22-6847Tmuugev D+Metabolites [Mass/Vol]26.3 ng/mL 30-100The [facility] HospitalComment on above:VITAMIN D STATUS 25(OH)VITAMIN D RANGE (ng/mL) Deficient <20 Insufficient 20 to <62Whngxpkmbu22 to 100Reference: Franklyn BADI,Benjamin GRAF, Andreina MARQUEZ, et al. Evaluation,treatment, and prevention of vitamin D deficiency; an Endocrine Society clinical practice guideline. JCEM. 2010; 96(7):1911-30.Alanine aminotransferase [Enzymatic activity/volume] in Serum or PlasmaOrdered By: Keven Florentino on 38-76-2327AIP [Catalytic activity/Vol]11 U/L7-52The [facility] HospitalAlbumin [Mass/volume] in Serum or Plasma by Bromocresol green (BCG) dye binding methoOrdered By: Keven Florentino on 31-74-3890Brbyjcc BCG dye [Mass/Vol]3.7 g/dL3.5-5.7FThe Jewish HospitalAlkaline phosphatase [Enzymatic activity/volume] in Serum or PlasmaOrdered By: Keven Florentino on 98-27-0503SEX [Catalytic activity/Vol]74 U/D82-227WbjvsxjdvThe Christ HospitalAmphetamine Screen Ql (U)Ordered By: Keven Florentino on 23-48-9447Yelwzuzizeya Ql (U)NegativeNegativeThe Christ HospitalAspartate aminotransferase [Enzymatic activity/volume] in Serum or PlasmaOrdered By: Keven Florentino on 15-03-9628OUN [Catalytic activity/Vol]15 U/T35-24ClleauqarThe Christ HospitalAutomated erythrocytes count in urine sediment (number/area) Ordered By: Keven Florentino on 10-40-5347TCN Auto (Urine sed) [#/Area]1-2 [HPF]0-4 The [facility] HospitalAutomated leukocytes count in urine sediment (number/area)Ordered By: Keven Florentino on 43-78-5515FMZ Auto (Urine sed) [#/Area] 10-19 [HPF]0-4FThe Jewish HospitalBarbiturates [Presence] in Urine by Screen methodOrdered By: Keven Florentino on 14-07-6221Zlrtmpuebcmg Screen Ql (U) NegativeNegativeThe Christ HospitalBasophils Auto (Bld) [#/Vol] Ordered By: Keven Florentino on 42-98-1470Plkojvstr (Bld) [#/Vol]0.0 10*3/uL0.0-0.2 The [facility] HospitalBasophils/100 WBC Auto (Bld)Ordered By: Keven Florentino on 18-32-6345Ctlrelrbr/100 WBC (Bld)0.7 %.The [facility] HospitalBenzodiazepines Screen Ql (U)Ordered By: Keven Florentino on 10-28-2022 Benzodiazepines Ql (U)NegativeNegMansfield Hospital Benzoylecgonine [Presence] in Urine by Screen methodOrdered By: Keven Florentino on 94-24-4269Urxclotqnoinprg Screen Ql (U)NegativeNegMansfield HospitalBilirubin Test strip Ql (U)Ordered By: Keven Florentino on 10-28-2022 Bilirubin Ql (U)NegativeNegMansfield HospitalBilirubin.total [Mass/volume] in Serum or PlasmaOrdered By: Keven Florentino on 73-04-3401Oaahdnvvy [Mass/Vol]0.5 mg/dL0.3-1.0The [facility] HospitalCalcium [Mass/volume] in Serum or PlasmaOrdered By: Keven Florentino on 86-43-8591Rkvdnsk [Mass/Vol]8.5 mg/dL8.6-10.3FThe Jewish HospitalCannabinoids [Presence] in Urine by Screen methodOrdered By: Keven Florentino on 29-34-5494Mqvyotvvfnwf Screen Ql (U) NegativeNegMansfield HospitalComment on above:These are unconfirmed results and should not be used for legal purposes. Drug Cut-Off Concentration: AMPH 1000 ng/mL BOO 200 ng/mL HELGA 200 ng/mL COCM 300 ng/mL OP 300 ng/mL PCP 25 ng/mL THC 20 ng/mLCarbon dioxide, total [Moles/volume] in Serum or PlasmaOrdered By: Keven Florentino on 13-60-5629ZL5 [Moles/Vol]24.6 mmol/L 21.0-31.0The [facility] HospitalChloride [Moles/volume] in Serum or PlasmaOrdered By: Keven Florentino on 73-66-8982Svkeucbm [Moles/Vol]109 mmol/L98-107 The [facility] HospitalColor Auto (U)Ordered By: Keven Florentino on 75-04-1852Duqru (U)Dark yellowYellowThe Christ HospitalCreatinine [Mass/volume] in Serum or PlasmaOrdered By: Keven Florentino on 02-23-8129Qkxnfyryxf [Mass/Vol]0.70 mg/dL0.60-1.20The [facility] HospitalEosinophils Auto (Bld) [#/Vol]Ordered By: Keven Florentino on 68-48-0322Jlkniigibjp (Bld) [#/Vol]0.2 10*3/uL0.0-0.45The [facility] HospitalEosinophils/100 WBC Auto (Bld) Ordered By: Keven Florentino on 85-49-9342Iwwztpwjikk/100 WBC (Bld)3.9 %.The [facility] HospitalErythrocyte distribution width Auto (RBC) [Ratio]Ordered By: Keven Florentino on 59-21-9477Joxkhtbtjmf distribution width (RBC) [Ratio]13.0 % 11.9-15.3FThe Jewish HospitalEthanol [Mass/volume] in Serum or PlasmaOrdered By: Keven Florentino on 16-73-5828Xypikui [Mass/Vol]mg/dLThe Christ HospitalEthanol [Mass/Vol]TNPThe Christ Hospital Comment on above:Test not performedGlobulin Calc (S) [Mass/Vol]Ordered By: Keven Florentino on 46-87-7299Ejzpuxja (S) [Mass/Vol]2.4 g/dLThe Christ HospitalGlucose [Mass/volume] in Serum or PlasmaOrdered By: Keven Florentino on 23-40-4761Ssvydul [Mass/Vol]91 mg/kX69-323ZvnlqqovmThe Christ Hospital Comment on above:ADA recommended reference rangeRandom Glucose Reference Range is dependent on time and content of last meal. Glucose of more than 200 mg/dL in a nonstressed, ambulatory subject supports the diagnosisof Diabetes Mellitus. HCG ( test) IA.rapid Ql (U)Ordered By: Keven Florentino on 20-77-2290KJC ( test) Ql (U)NegativeThe Christ HospitalHematocrit Auto (Bld) [Volume fraction]Ordered By: Keven Florentino on 53-69-4303Ihicmagwva (Bld) [Volume fraction]36.0 %34.0-46.4FThe Jewish HospitalHemoglobin [Mass/volume] in BloodOrdered By: Keven Florentino on 60-66-4069Hxlwnlmklx (Bld) [Mass/Vol]12.1 g/dL11.8-15.4FThe Jewish HospitalKetones Auto test strip (U) [Mass/Vol]Ordered By: Keven Florentino on 76-85-6350Yyluuks (U) [Mass/Vol] TraceNegativeThe Christ HospitalLaboratory - UrinalysisOrdered By: Keven Florentino on 28-19-0362Yrtnyoo casts LM Ql (Urine sed)0-8 [LPF]0-8The [facility] HospitalLeukocytes [#/volume] corrected for nucleated erythrocytes in Blood by Automated counOrdered By: Keven Florentino on 78-79-9441ZMQ corrected for nucl RBC Auto (Bld) [#/Vol]6.1 10*3/uL3.8-11.6FThe Jewish HospitalLymphocytes Auto (Bld) [#/Vol]Ordered By: Keven Florentino on 01-68-0629Olwzslcdafb (Bld) [#/Vol]1.2 10*3/uL1.00-4.8The [facility] HospitalLymphocytes/100 WBC Auto (Bld)Ordered By: Keven Florentino on 10-28-2022 Lymphocytes/100 WBC (Bld)19.9 %.[facility]H Auto (RBC) [Entitic mass]Ordered By: Keven Florentino on 07-61-8343KON (RBC) [Entitic mass]32.4 pg24.7-34.3FSt. Francis HospitalHC Auto (RBC) [Mass/Vol]Ordered By: Keven Florentino on 57-79-7929NIJH (RBC) [Mass/Vol]33.7 g/dL32.0-35.0The [facility] HospitalMCV Auto (RBC) [Entitic vol]Ordered By: Keven Florentino on 51-49-3834PTB (RBC) [Entitic vol]96.1 jP42-828IgtkxfiuvThe Christ Hospital Monocyte distribution width [Entitic volume] in Blood by AutomatedOrdered By: Keven Florentino on 25-56-8988Thjgswgm distribution width Auto (Bld) [Entitic vol] 17.88 %0.00-20.00The [facility] HospitalMonocytes Auto (Bld) [#/Vol] Ordered By: Keven Florentino on 60-71-9495Fdhdknjlk (Bld) [#/Vol]0.4 10*3/uL0.0-0.8 [facility] HospitalMonocytes/100 WBC Auto (Bld)Ordered By: Keven Florentino on 24-17-4171Qwatduemi/100 WBC (Bld)6.5 %.The [facility] HospitalNeutrophils Auto (Bld) [#/Vol]Ordered By: Keven Florentino on 10-28-2022 Neutrophils (Bld) [#/Vol]4.2 10*3/uL1.8-7.7FThe Jewish Hospital Neutrophils/100 WBC Auto (Bld)Ordered By: Keven Florentino on 10-28-2022 Neutrophils/100 WBC (Bld)69.0 %.The [facility] HospitalNitrite Test strip Ql (U)Ordered By: Keven Florentino on 42-86-7616Dhvupse Ql (U)NegativeNegative [facility] HospitalNo Panel InformationOrdered By: Keven Florentino on 39-03-3377Chphkoxpz GFR (CKD-EPI)> 60.0 mL/MinThe Christ Hospital Pharmacy Creatinine Clearance (Eckv768.41[facility] Nucleated erythrocytes [Presence] in Blood by Automated countOrdered By: Keven Florentino on 20-89-6476Ajzyaccky RBC Auto Ql (Bld)0.2 /100{WBC}0-0.5FThe Jewish HospitalOpiates [Presence] in Urine by Screen methodOrdered By: Keven Florentino on 28-85-4410Lcsdggp Screen Ql (U)NegativeNegMansfield HospitalPhencyclidine Screen Ql (U)Ordered By: Keven Florentino on 10-28-2022 Phencyclidine Ql (U)NegativeNegativeThe Christ HospitalPlatelet mean volume Auto (Bld) [Entitic vol]Ordered By: Keven Florentino on 10-28-2022 Platelet mean volume (Bld) [Entitic vol]7.5 fL6.3-10.7FThe Jewish HospitalPlatelets Auto (Bld) [#/Vol]Ordered By: Keven Florentino on 45-34-8164Hqwyxhuia (Bld) [#/Vol]177 10*3/aW187-463GhgukkapmThe Christ HospitalPotassium [Moles/volume] in Serum or PlasmaOrdered By: Keven Florentino on 61-96-9019Dezmktoek [Moles/Vol]3.8 mmol/L3.5-5.1FThe Jewish HospitalProtein Auto test strip (U) [Mass/Vol]Ordered By: Keven Florentino on 99-72-6139Xbcxntp (U) [Mass/Vol] NegativeNegativeThe Christ HospitalProtein [Mass/volume] in Serum or PlasmaOrdered By: Keven Florentino on 77-35-7794Rfzbbeq [Mass/Vol]6.1 g/dL6.4-8.9 [facility] HospitalRBC Auto (Bld) [#/Vol]Ordered By: Keven Florentino on 04-52-4007KAU (Bld) [#/Vol]3.74 10*6/uL3.60-5.00[facility] Cancer Centererum or plasma albumin/globulin mass ratioOrdered By: Keven Florentino on 54-72-2516Fmsczmm/Globulin [Mass ratio]1.5 {ratio}[facility] Centererum or plasma anion gap determinationOrdered By: Keven Florentino on 06-18-2086Pgkjz gap [Moles/Vol]11.2 mmol/L6.0-15.0[facility] Cancer Centerodium [Moles/volume] in Serum or PlasmaOrdered By: Keven Florentino on 71-95-5661Whejll [Moles/Vol]141 mmol/Q236-965MkqscchdeThe Christ Hospital Specific gravity Auto test strip (U) [Rel density]Ordered By: Keven Florentino on 79-70-2668Ynjmjlfb gravity (U) [Rel density]1.0241.001-1.030[facility], Cancer Centerquamous epithelial cells detection in urine sediment by light microscopyOrdered By: Keven Florentino on 59-89-9234Uczeyffthw cells.squamous LM Ql (Urine sed)5-9 [HPF]0-2FThe Jewish HospitalUrea nitrogen [Mass/volume] in Serum or PlasmaOrdered By: Keven Florentino on 27-40-8064Qemj nitrogen [Mass/Vol]15 mg/dL7-25The [facility] HospitalUrine bacteria detection by automated methodOrdered By: Keven Florentino on 01-49-7907Vjqwdcsj Auto Ql (U)None seenNone SeenThe Christ HospitalUrine clarity by refractometry automatedOrdered By: Keven Florentino on 78-80-1975Pvlurbr Refractometry automated (U)ClearCleLake County Memorial Hospital - WestUrine culture routineOrdered By: Keven Florentino on 91-01-3227Agpjnddc identified Cx Nom (U)2 DaysThe Christ HospitalUrine glucose measurement by automated test strip (mass/volume)Ordered By: Keven Florentino on 33-89-8096Fqkwakf Auto test strip (U) [Mass/Vol]Normal mg/dLNoKettering HealthUrine hemoglobin detection by automated test stripOrdered By: Keven Florentino on 87-07-6619Pijqtpuprg Auto test strip Ql (U)NegativeNegativeThe Christ HospitalUrine leukocyte esterase detection by automated test stripOrdered By: Keven Florentino on 46-30-0100Hecnmgvdk esterase Auto test strip Ql (U)3+Negative [facility] HospitalUrobilinogen Auto test strip (U) [Mass/Vol] Ordered By: Keven Florentino on 04-62-6486Szjybcnienjc (U) [Mass/Vol]mg/dLNoal [facility] HospitalWBC Auto (Bld) [#/Vol]Ordered By: Keven Florentino on 34-70-0678TXN (Bld) [#/Vol]6.1 10*3/uL3.8-11.6FThe Jewish HospitalpH Auto test strip (U)Ordered By: Keven Florentino on 07-86-6890zA (U)6.0 [pH] 5.0-9.0[facility] HospitalAlanine aminotransferase [Enzymatic activity/volume] in Serum or PlasmaOrdered By: Chelsie Cortez on 66-16-1280MSF [Catalytic activity/Vol]20 U/L7-52The [facility] HospitalAlbumin [Mass/volume] in Serum or Plasma by Bromocresol green (BCG) dye binding metho Ordered By: Chelsie Cortez on 12-97-9884Qkxxhee BCG dye [Mass/Vol]3.9 g/dL 3.5-5.7FThe Jewish HospitalAlkaline phosphatase [Enzymatic activity/volume] in Serum or PlasmaOrdered By: Chelsie Cortez on 56-44-9283DNA [Catalytic activity/Vol]99 U/X35-709JmdttowuiThe Christ HospitalAspartate aminotransferase [Enzymatic activity/volume] in Serum or PlasmaOrdered By: Chelsie Cortez on 00-25-7593IGM [Catalytic activity/Vol]20 U/K79-65VrragacxuThe Christ HospitalAutomated erythrocytes count in urine sediment (number/area)Ordered By: Chelsie Cortez on 90-66-7121JSN Auto (Urine sed) [#/Area]0-1 [HPF]0-4FThe Jewish HospitalAutomated leukocytes count in urine sediment (number/area)Ordered By: Chelsie Cortez on 01-23-8222TIQ Auto (Urine sed) [#/Area]20-49 [HPF]0-4FThe Jewish HospitalBasophils Auto (Bld) [#/Vol]Ordered By: Chelsie Cortez on 52-34-0169Blzcosubb (Bld) [#/Vol]0.0 10*3/uL0.0-0.2FThe Jewish HospitalBasophils/100 WBC Auto (Bld)Ordered By: Chelsie Cortez on 78-78-4277Iccmannax/100 WBC (Bld)0.8 %. [facility] HospitalBilirubin Test strip Ql (U)Ordered By: Chelsie Cortez on 13-85-0302Vqippezdd Ql (U)NegativeNegativeThe Christ HospitalBilirubin.direct [Mass/volume] in Serum or PlasmaOrdered By: Chelsie Cortez on 11-25-6893Mkxhvysgj.direct [Mass/Vol]0.10 mg/dL0.03-0.18FThe Jewish HospitalBilirubin.total [Mass/volume] in Serum or PlasmaOrdered By: Chelsie Cortez on 95-90-0221Midtzojqv [Mass/Vol]0.6 mg/dL0.3-1.0[facility] HospitalCalcium [Mass/volume] in Serum or PlasmaOrdered By: Chelsie Cortez on 56-45-8004Xsipogz [Mass/Vol]8.8 mg/dL8.6-10.3FThe Jewish HospitalCarbon dioxide, total [Moles/volume] in Serum or Plasma Ordered By: Chelsie Cortez on 07-21-8952EC4 [Moles/Vol]26.5 mmol/L21.0-31.0 [facility] HospitalChloride [Moles/volume] in Serum or Plasma Ordered By: Chelsie Cortez on 69-32-8280Vxoglpoe [Moles/Vol]107 mmol/L98-107 [facility] HospitalColor Auto (U)Ordered By: Chelsie Cortez on 68-79-6098Xguyw (U)YellowYellowThe Christ HospitalCreatinine [Mass/volume] in Serum or PlasmaOrdered By: Chelsie Cortez on 10-18-2022 Creatinine [Mass/Vol]0.83 mg/dL0.60-1.20[facility] Eosinophils Auto (Bld) [#/Vol]Ordered By: Chelsie Cortez on 10-18-2022 Eosinophils (Bld) [#/Vol]0.1 10*3/uL0.0-0.45[facility] Eosinophils/100 WBC Auto (Bld)Ordered By: Chelsie Cortez on 10-18-2022 Eosinophils/100 WBC (Bld)1.2 %.[facility] HospitalErythrocyte distribution width Auto (RBC) [Ratio]Ordered By: Chelsie Cortez on 10-18-2022 Erythrocyte distribution width (RBC) [Ratio]13.1 %11.9-15.3FThe Jewish HospitalGlobulin Calc (S) [Mass/Vol]Ordered By: Chelsie Cortez on 71-64-9217Jwsznwnq (S) [Mass/Vol]2.8 g/dLThe [facility] Hospital Glucose [Mass/volume] in Serum or PlasmaOrdered By: Chelsie Cortez on 22-17-9958Zynwpyg [Mass/Vol]101 mg/hN88-362FntrgsxwpThe [facility] Hospital Comment on above:ADA recommended reference rangeRandom Glucose Reference Range is dependent on time and content of last meal. Glucose of more than 200 mg/dL in a nonstressed, ambulatory subject supports the diagnosisof Diabetes Mellitus. HCG ( test) IA.rapid Ql (U)Ordered By: Chelsie Cortez on 09-99-6641XXW ( test) Ql (U)NegativeThe Christ HospitalHematocrit Auto (Bld) [Volume fraction]Ordered By: Chelsie Cortez on 00-27-6394Plznhpacqh (Bld) [Volume fraction]35.1 %34.0-46.4FThe [facility] Hospital Hemoglobin [Mass/volume] in BloodOrdered By: Chelsie Cortez on 10-18-2022 Hemoglobin (Bld) [Mass/Vol]12.0 g/dL11.8-15.4FThe Jewish Hospital Ketones Auto test strip (U) [Mass/Vol]Ordered By: Chelsie Cortez on 10-18-2022 Ketones (U) [Mass/Vol]NegativeNegativeThe [facility] Hospital Laboratory - UrinalysisOrdered By: Chelsie Cortez on 79-57-3027Eoppjup casts LM Ql (Urine sed)0-8 [LPF]0-8The [facility] HospitalLeukocytes [#/volume] corrected for nucleated erythrocytes in Blood by Automated coun Ordered By: Chelsie Cortez on 79-39-9397QLB corrected for nucl RBC Auto (Bld) [#/Vol]6.3 10*3/uL3.8-11.6FThe Jewish HospitalLipase [Enzymatic activity/volume] in Serum or PlasmaOrdered By: Chelsie Cortez on 10-18-2022 Lipase [Catalytic activity/Vol]42.0 U/L11.0-82.0[facility] HospitalLymphocytes Auto (Bld) [#/Vol]Ordered By: Chelsie Cortez on 10-18-2022 Lymphocytes (Bld) [#/Vol]1.4 10*3/uL1.00-4.8[facility] Lymphocytes/100 WBC Auto (Bld)Ordered By: Chelsie Cortez on 10-18-2022 Lymphocytes/100 WBC (Bld)22.0 %.[facility]H Auto (RBC) [Entitic mass]Ordered By: Chelsie Cortez on 27-60-6882FGU (RBC) [Entitic mass] 33.0 pg24.7-34.3FThe Jewish HospitalMCHC Auto (RBC) [Mass/Vol] Ordered By: Chelsie Cortez on 62-91-3503CMIZ (RBC) [Mass/Vol]34.2 g/dL32.0-35.0 [facility] HospitalMCV Auto (RBC) [Entitic vol]Ordered By: Chelsie Cortez on 17-16-4869GDL (RBC) [Entitic vol]96.5 iW58-130SxuxqhnjtThe Christ HospitalMagnesium [Mass/volume] in Serum or PlasmaOrdered By: Chelsie Cortez on 60-02-9689Vooqycdks [Mass/Vol]2.1 mg/dL1.9-2.7FThe Jewish HospitalMonocytes Auto (Bld) [#/Vol]Ordered By: Chelsie Cortez on 44-43-7878Xetmaemkx (Bld) [#/Vol]0.5 10*3/uL0.0-0.8[facility] HospitalMonocytes/100 WBC Auto (Bld)Ordered By: Chelsie Cortez on 10-18-2022 Monocytes/100 WBC (Bld)7.2 %.The [facility] HospitalNeutrophils Auto (Bld) [#/Vol]Ordered By: Chelsie Cortez on 83-13-9849Ajlmmhggsln (Bld) [#/Vol] 4.3 10*3/uL1.8-7.7FThe Jewish HospitalNeutrophils/100 WBC Auto (Bld)Ordered By: Chelsie Cortez on 03-09-8932Jlmxdkkgpsg/100 WBC (Bld)68.8 %. [facility] HospitalNitrite Test strip Ql (U)Ordered By: Chelsie Cortez on 10-76-2518Mewjwfo Ql (U)NegativeNegativeThe Christ HospitalNo Panel InformationOrdered By: Chelsie Cortez on 40-02-5449Ibmiloyft GFR (CKD-EPI)> 60.0 mL/MinThe Christ HospitalPharmacy Creatinine Clearance (Pnip686.47The [facility] HospitalNucleated erythrocytes [Presence] in Blood by Automated countOrdered By: Chelsie Cortez on 10-18-2022 Nucleated RBC Auto Ql (Bld)0.1 /100{WBC}0-0.5FThe [facility] Hospital Platelet mean volume Auto (Bld) [Entitic vol]Ordered By: Chelsie Cortez on 57-02-7838Vfzjwrbf mean volume (Bld) [Entitic vol]7.6 fL6.3-10.7FThe Jewish HospitalPlatelets Auto (Bld) [#/Vol]Ordered By: Chelsie Cortez on 05-49-3919Vzmuvhrnh (Bld) [#/Vol]170 10*3/sI051-198TmfllrokxThe Christ HospitalPotassium [Moles/volume] in Serum or PlasmaOrdered By: Chelsie Cortez on 17-15-9149Fhuxtscnc [Moles/Vol]4.2 mmol/L3.5-5.1FThe Jewish HospitalProtein Auto test strip (U) [Mass/Vol]Ordered By: Chelsie Cortez on 21-30-7510Lzvjvtz (U) [Mass/Vol]NegativeNegativeThe Christ HospitalProtein [Mass/volume] in Serum or PlasmaOrdered By: Chelsie Cortez on 53-06-4487Ghxvtww [Mass/Vol]6.7 g/dL6.4-8.9The [facility] HospitalRBC Auto (Bld) [#/Vol]Ordered By: Chelsie Cortez on 07-14-7720TVO (Bld) [#/Vol]3.64 10*6/uL3.60-5.00[facility] Cancer Centererum or plasma albumin/globulin mass ratioOrdered By: Chelsie Cortez on 10-18-2022 Albumin/Globulin [Mass ratio]1.4 {ratio}[facility] Centererum or plasma anion gap determinationOrdered By: Chelsie Cortez on 15-41-0710Vlsze gap [Moles/Vol]9.7 mmol/L6.0-15.0[facility] Cancer Centererum or plasma non-glucuronidated bilirubin measurement (mass/volume)Ordered By: Chelsie Cortez on 89-36-7079Rrlcfnejg.indirect [Mass/Vol]0.5 mg/dLOhioHealth Arthur G.H. Bing, MD, Cancer Centerodium [Moles/volume] in Serum or PlasmaOrdered By: Chelsie Cortez on 53-10-1016Aqgpdt [Moles/Vol]139 mmol/S389-503UsegdpmtmOhioHealth Arthur G.H. Bing, MD, Cancer Centerpecific gravity Auto test strip (U) [Rel density]Ordered By: Chelsie Cortez on 25-19-8381Ymnskttd gravity (U) [Rel density]1.011 1.001-1.030[facility] Cancer Centerquamous epithelial cells detection in urine sediment by light microscopyOrdered By: Chelsie Cortez on 10-18-2022 Epithelial cells.squamous LM Ql (Urine sed)3-4 [HPF]0-2FThe Jewish HospitalUrea nitrogen [Mass/volume] in Serum or PlasmaOrdered By: Chelsie Cortez on 09-85-8212Zmds nitrogen [Mass/Vol]9 mg/dL7-25The [facility] HospitalUrine bacteria detection by automated methodOrdered By: Chelsie Cortez 73-25-0921Eaeertli Auto Ql (U)None seenNone SeenThe Christ HospitalUrine clarity by refractometry automatedOrdered By: Chelsie Cortez 59-05-5470Aubyqeo Refractometry automated (U)ClearClearFThe Jewish HospitalUrine culture routineOrdered By: Chelsie Cortez on 99-48-6229Dssnsfjo identified Cx Nom (U)2 DaysThe [facility] Hospital Urine glucose measurement by automated test strip (mass/volume)Ordered By: Chelsie Cortez on 68-58-5451Vvcnbhg Auto test strip (U) [Mass/Vol]Normal mg/dL NormalThe Christ HospitalUrine hemoglobin detection by automated test stripOrdered By: Chelsie Cortez on 24-99-1295Smkinakxwd Auto test strip Ql (U)NegativeNegativeThe Christ HospitalUrine leukocyte esterase detection by automated test stripOrdered By: Chelsiemariah Cortez on 10-18-2022 Leukocyte esterase Auto test strip Ql (U)3+NegativeThe Christ HospitalUrobilinogen Auto test strip (U) [Mass/Vol]Ordered By: Chelsie Cortez on 11-70-6228Rlrkmuuxyrgx (U) [Mass/Vol]Normal mg/dLNormalThe Christ HospitalWBC Auto (Bld) [#/Vol]Ordered By: Chelsie Cortez on 81-67-1399ASR (Bld) [#/Vol]6.3 10*3/uL3.8-11.6FThe Jewish HospitalpH Auto test strip (U)Ordered By: Chelsie Cortez on 41-61-5743nQ (U)5.5 [pH]5.0-9.0The [facility] HospitalAMYLASEon 29-73-9636Qdffcos [Catalytic activity/Vol]42 U/GJpikyz09-805Ifh [facility] HospitalComment on above:Performed By: #### CMP, LIPA, GRETTA #### [facility] [address] [address] [address] Kinjal KrishnanC AUTO DIFFon 87-55-7579GPAV #0.0 103/ulNormal0.0-0.1The [facility] HospitalComment on above:Performed By: #### CBC #### [facility] [address] [address] [address] Kinjal Cruzsophils/100 WBC (Bld)0.6 %Normal0.2-2.0The [facility] Comment on above:Performed By: #### CBC #### [facility] [address] [address] [address] Kinjal Ernst #0.1 103/ulNormal0.0-0.7The [facility] HospitalComment on above: Performed By: #### CBC #### [facility] [address] [address] [address] Kinjal Coronadoosinophils/100 WBC (Bld)2.1 %Normal0.9-7.0The [facility] Comment on above:Performed By: #### CBC #### [facility] [address] [place] [address] Dr. Kinjal Coronadorythrocyte distribution width (RBC) [Ratio]12.4 %Ynkcpp73.0-15.0 [facility]:Performed By: #### CBC #### [facility] [address] [place] [address] Dr. Kinjal RiversHematocrit (Bld) [Volume fraction]38.3 %Ouhzfw69.0-48.0[facility] on above:Performed By: #### CBC #### [facility] [address] [place] [address] Dr. Kinjal RiversHemoglobin (Bld) [Mass/Vol]12.8 g/hYHohrye44.0-16.0[facility] CenterComment on above:Performed By: #### CBC #### [facility] [address] [place] [address] Dr. Kinjal Diallo #0.02 10e3/ulNormal0.00-0.03[facility] HospitalComment on above:Performed By: #### CBC #### [facility] [address] [place] [address] Dr. Kinjal Diallo %0.3 %Normal0.0-0.5[facility] HospitalComment on above: Performed By: #### CBC #### [facility] [address] [place] [address] Dr. Kinjal BanuelosH #1.5 103/ulNormal1.2-3.8The [facility] Community HospitalComment on above:Performed By: #### CBC #### [facility] [address] [place] [address] Dr. Kinjal Banueloshocytes/100 WBC (Bld)24.1 %Gxruhv09.5-60.0University Hospitals Geauga Medical CenterComment on above:Performed By: #### CBC #### [facility] [address] [place] [address] Dr. Kinjal AnnaUAL DIFF REQNONormalThe [facility] HospitalComment on above: Performed By: #### CBC #### [facility] [address] [place] [address] Dr. Kinjal Ohara (RBC) [Entitic mass]32.7 zhBbhunn01.7-34.0The [facility] HospitalComment on above:Performed By: #### CBC #### [facility] [address] [place] [address] Dr. Kinjal Ohara (RBC) [Mass/Vol]33.4 g/uKZpquea67.9-35.2The [facility] HospitalComment on above:Performed By: #### CBC #### [facility] [address] [place] [address] Dr. Kinjal Ohara (RBC) [Entitic vol]97.7 kURxzzkj35.0-99.0The [facility] HospitalComment on above:Performed By: #### CBC #### [facility] [address] [place] [address] Dr. Kinjal Duran #0.3 103/ulNormal0.3-0.8The [facility] HospitalComment on above:Performed By: #### CBC #### [facility] [address] [place] [address] Dr. Kinjal Nevarezocytes/100 WBC (Bld)5.5 %Normal1.7-12.0The [facility] Comment on above:Performed By: #### CBC #### [facility] [address] [place] [address] Dr. Kinjal Cr #4.2 103/ulNormal1.4-6.5The [facility] HospitalComment on above:Performed By: #### CBC #### [facility] [address] [place] [address] Dr. Kinjal Spencerutrophils/100 WBC (Bld)67.4 %Anhhuf50.0-75.0The [facility] HospitalComment on above:Performed By: #### CBC #### [facility] [address] [place] [address] Dr. Kinjal Lopezlet mean volume (Bld) [Entitic vol]9.2 fLCritically low 9.5-13.5The [facility] HospitalComment on above:Performed By: #### CBC #### [facility] [address] [place] [address] Dr. Kinjal RiversPLT184 103/myPxkrdo565-804Vmz [facility] HospitalComment on above: Performed By: #### CBC #### [facility] [address] [place] [address] Dr. Kinjal RiversRBC3.92 106/ulCritically low4.20-5.40The [facility] HospitalComment on above:Performed By: #### CBC #### [facility] [address] [place] [address] Dr. Kinjal RiversWBC6.2 103/ulNormal4.0-11.0The [facility] HospitalComment on above: Performed By: #### CBC #### [facility] [address] [place] [address] Dr. Kinjal Maza URINEon 28-64-1837IVDYYWA URINECulture Observations: LIGHT GROWTH OF MIXED GENITAL YOGESH. NO POTENTIAL PATHOGENS SEEN.NormalUniversity Hospitals Geauga Medical CenterComment on above:Performed By: #### URCX #### [facility] [address] [place] [address] Dr. Kinjal Ring URINE PROFILEon 37-83-5690Cbpheskpq Ql (U)NegativeNormal NEGATIVEThe [facility] Community HospitalComment on above:Performed By: #### CHIQUIS VILLASEÑOR #### [facility] [address] [place] [address] Dr. Kinjal Kapoor (U)SL CLOUDYAbnormalCLEARThe [facility] HospitalComment on above:Performed By: #### CHIQUIS VILLASEÑOR #### [facility] [address] [place] [address] Dr. Kinjal Licea (U)LT. YELLOWNormalYELLOWThe [facility] HospitalComment on above:Performed By: #### CHIQUIS VILLASEÑOR #### [facility] [address] [place] [address] Dr. Kinjal Alcaraz micrscopic examination will be performed if indicated. NormalUniversity Hospitals Geauga Medical CenterComment on above:Performed By: #### MALIA VILLASEÑORR #### [facility] [address] [address] [address] Kinjal RiversGlucose Ql (U)NegativeNormalNEGATIVEUniversity Hospitals Geauga Medical CenterComment on above:Performed By: #### AKSI ERUR #### [facility] [address] [address] [address] Kinjal RiversHemoglobin Ql (U)NegativeNormalNEGUniversity Hospitals Beachwood Medical Center Comment on above:Performed By: #### MALIA VILLASEÑORR #### [facility] [address] [place] [address] Dr. Kinjal RiversKetones Ql (U)NegativeNormalNEGATIVEUniversity Hospitals Geauga Medical CenterComment on above:Performed By: #### MALIA VILLASEÑORR #### [facility] [address] [place] [address] Dr. Kinjal RiversLEUKOCYTESTRACEAbnormalNEGATIVEUniversity Hospitals Geauga Medical CenterComment on above:Performed By: #### MALIA VILLASEÑORR #### [facility] [address] [place] [address] Dr. Kinjal Feldmantrite Ql (U)NegativeNormalNEGATIVEUniversity Hospitals Geauga Medical CenterComment on above:Performed By: #### KASI ERUR #### [facility] [address] [address] [address] Kinjal RiverspH (U)5.0 [pH]Normal5-9University [facility] Geauga Medical CenterComment on above: Performed By: #### MALIA VILLASEÑORR #### [facility] [address] [address] [address] Kinjal RiversSPEC GRAVITY1.276Oemwlsip1.005-<=1.025[facility] Comment on above:Performed By: #### KASI ERUR #### [facility] [address] [address] [address] Kinjal RiversUA PROTEINNegativeNormalNEGATIVE/ TRACEThe [facility] Comment on above:Performed By: #### CHIQUIS VILLASEÑOR #### [facility] [address] [place] [address] Dr. Kinjal SANON INDINDICATEDNormalThe [facility] HospitalComment on above: Performed By: #### MALIA VILLASEÑORR #### [facility] [address] [place] [address] Dr. Kinjal Quigleybilino Qn (U)1.0 {José'U}/dLNormal0.2 - 1.0The [facility] HospitalComment on above:Performed By: #### CHIQUIS VILLASEÑOR #### [facility] [address] [place] [address] Dr. Kinjal RiversLIPASEon 51-59-8234Voztqn [Catalytic activity/Vol]133.0 U/LNormal 73.0-393.0The [facility] HospitalComment on above:Performed By: #### CMP, LIPA, GRETTA #### [facility] [address] [place] [address] Dr. Kinjal RiversPROF 14(COMP METB)on 21-60-6579Enihktt [Mass/Vol]3.7 g/dLNormal 3.4-5.0The [facility] HospitalComment on above:Performed By: #### CMP, LIPA, GRETTA #### [facility] [address] [place] [address] Dr. Kinjal RiversAlbumin/Globulin [Mass ratio]1.0 {ratio}NormalThe [facility] Community HospitalComment on above:Performed By: #### CMP, LIPA, GRETTA #### [facility] [address] [place] [address] Dr. Kinjal Garnett [Catalytic activity/Vol]101 U/LKlmmqb75-570Apx [facility] HospitalComment on above:Performed By: #### CMP, LIPA, GRETTA #### [facility] [address] [place] [address] Dr. Kinjal Pepe [Catalytic activity/Vol]27 U/LTujxtt46-41Wbp [facility] HospitalComment on above:Performed By: #### CMP, LIPA, GRETTA #### [facility] [address] [address] [address] Kinjal RiversAnion gap [Moles/Vol]13.4 mmol/LNormalThe [facility] Comment on above:Performed By: #### CMP, LIPA, GRETTA #### [facility] [address] [address] [address] Kinjal RiversAST [Catalytic activity/Vol]23 U/PZedopa89-96Cxq [facility] HospitalComment on above:Performed By: #### CMP, LIPA, GRETTA #### [facility] [address] [address] [address] Kinjal RiversBilirubin [Mass/Vol]0.6 mg/dLNormal0.2-1.0[facility] Comment on above:Performed By: #### CMP, LIPA, GRETTA #### [facility] [address] [place] [address] Dr. Kinjal RiversCalcium [Mass/Vol]9.1 mg/dLNormal8.5-10.1[facility] Comment on above:Performed By: #### CMP, LIPA, GRETTA #### [facility] [address] [place] [address] Dr. Kinjal RiversChloride [Moles/Vol]105 mmol/LRdjuzl04-667SajUniversity Hospitals Geauga Medical Center Comment on above:Performed By: #### CMP, LIPA, GRETTA #### [facility] [address] [place] [address] Dr. Kinjal RiversCO2 [Moles/Vol]25.3 mmol/RXzxvmb72.0-32.0The [facility] Comment on above:Performed By: #### CMP, LIPA, GRETTA #### [facility] [address] [place] [address] Dr. Kinjal RiversCreatinine [Mass/Vol]0.96 mg/dLNormal0.55-1.02The [facility] HospitalComment on above:Performed By: #### CMP, LIPA, GRETTA #### [facility] [address] [address] [address] Kinjal CoronadoGFR-AF SAMOAN>60Normal>=60The [facility] HospitalComment on above:Performed By: #### NATHALIE LIPHarpreet, GRETTA #### [facility] [address] [address] [address] Kinjal CoronadoGFR-NON AF SAMOAN>60Normal>=60The [facility] HospitalComment on above:Performed By: #### CMP LIPA, GRETTA #### [facility] [address] [place] [address] Dr. Kinjal RiversGlobulin (S) [Mass/Vol]3.6 g/dLNormalThe [facility] HospitalComment on above:Performed By: #### NATHALIE LIPA, GRETTA #### [facility] [address] [place] [address] Dr. Kinjal RiversGlucose [Mass/Vol]93 mg/eZFkemwl34-209QheUniversity Hospitals Geauga Medical Center Comment on above:Performed By: #### NATHALIE LIPA, GRETTA #### [facility] [address] [place] [address] Dr. Kinjal RiversPotassium [Moles/Vol]3.7 mmol/LNormal3.5-5.1[facility] Comment on above:Performed By: #### NATHALIE LIPA, GRETTA #### [facility] [address] [place] [address] Dr. Kinjal RiversProtein [Mass/Vol]7.3 g/dLNormal6.4-8.2The [facility] Comment on above:Performed By: #### CMP, LIPA, GRETTA #### [facility] [address] [place] [address] Dr. Kinjal RiversSodium [Moles/Vol]140 mmol/TSctknf679-107QntUniversity Hospitals Geauga Medical Center Comment on above:Performed By: #### CMP LIPA, GRETTA #### [facility] [address] [place] [address] Dr. Kinjal RiversUrea nitrogen [Mass/Vol]9.0 mg/dLNormal7.0-18.0The [facility] HospitalComment on above:Performed By: #### CMP, LIPA, GRETTA #### [facility] [address] [address] [address] Kinjal RiversUrea nitrogen/Creatinine [Mass ratio]9.4 mg/mgNoMarietta Memorial HospitalCommarshfield medical center on above:Performed By: #### CMP, LIPA, GRETTA #### [facility] [address] [address] [address] Kinjal Brown MICROSCOPIC ONLYon 01-37-4381VMXKEENJYARUZMrqjnfjkDQTQ SEEN [facility] CenterCommarshfield medical center on above:Performed By: #### UMKYLIE, ERUR #### [facility] [address] [address] [address] Kinjal Tsai identified Cx Nom (U)INDICATEDSouthview Medical CenterCommarshfield medical center on above:Performed By: #### KASI, ERUR #### [facility] [address] [address] [address] Kinjal Hernandez SEENNormalNONE SEENUniversity Hospitals Geauga Medical CenterCommarshfield medical center on above:Performed By: #### KASI, ERUR #### [facility] [address] [address] [address] Kinjal Merchantystals LM Nom (Urine sed)NONE SEENNormalNONE SEENUniversity Hospitals Geauga Medical CenterCommarshfield medical center on above:Performed By: #### KASI, ERUR #### [facility] [address] [address] [address] Layton ChangEpithelial cells LM Ql (Urine sed)FEWAbnormalNONE SEEN /RAREThe [facility] HospitalCommarshfield medical center on above:Performed By: #### UMICRO, ERUR #### [facility] [address] [address] [address] Kinjal GarciaCOUSNONE SEENNormalNONE [facility] on above:Performed By: #### UMICRO, ERUR #### [facility] [address] [address] [address] Kinjal CrawfordONE SEENAbnormal0-2The [facility]ey HospitalComment on above: Performed By: #### KASI ERUR #### [facility] [address] [place], [place] [address] Dr. Kinjal RiversWBC2-5AbnormalNONE SEENThe [facility] HospitalComment on above: Performed By: #### KASI, ERUR #### [facility] [address] [place], [place] [address] Dr[address] Kinjal RiversActivated partial thromboplastin time (aPTT) in platelet poor plasma by coagulation aOrdered By: Michael Cerda on 71-72-0513pCTR Coag (PPP) [Time]24.9 s25.1-36.5FThe Jewish HospitalAutomated erythrocytes count in urine sediment (number/area)Ordered By: Michael Cerda on 91-12-7666BDE Auto (Urine sed) [#/Area]0-1 [HPF]0-4FThe Jewish HospitalAutomated leukocytes count in urine sediment (number/area)Ordered By: Michael Cerda on 64-99-3279NQX Auto (Urine sed) [#/Area]10-19 [HPF]0-4FThe Jewish HospitalBasophils Auto (Bld) [#/Vol]Ordered By: Michael Cerda on 09-28-2022 Basophils (Bld) [#/Vol]0.0 10*3/uL0.0-0.2FThe [facility] Hospital Basophils/100 WBC Auto (Bld)Ordered By: Michael Cerda on 84-46-1548Xqygbtqve/100 WBC (Bld)0.5 %.The [facility] HospitalBilirubin Test strip Ql (U) Ordered By: Michael Cerda on 34-30-1617Nnvieresz Ql (U)NegativeNegativeThe Christ HospitalCOVID CepheidOrdered By: Michael Cerda on 09-28-2022 SARS-CoV-2 (COVID-19) Ab IA QlNegativeNegMansfield Hospital Comment on above:This is a duplicate Cepheid Xpert Xpress CoV-2/Flu/RSV Plus RNA by RT-PCR result to be used for statistical tracking purpose only.SARS-CoV-2 (COVID-19) RNA CRISTINA+probe Ql (Unsp spec)The [facility] HospitalCalcium [Mass/volume] in Serum or PlasmaOrdered By: Micheal Cerda on 18-31-5353Dxfddhv [Mass/Vol]9.3 mg/dL8.6-10.3FThe Jewish HospitalCarbon dioxide, total [Moles/volume] in Serum or PlasmaOrdered By: Michael Cerda on 05-99-9895RB6 [Moles/Vol]23.7 mmol/L21.0-31.0The [facility] HospitalChloride [Moles/volume] in Serum or PlasmaOrdered By: Michael Cerda on 61-98-3932Zafcvbsj [Moles/Vol]105 mmol/N55-877VrvenqnjyThe Christ HospitalColor Auto (U) Ordered By: Michael Cerda on 25-19-8003Uvfnx (U)YellowYellowThe Christ HospitalCreatine kinase [Enzymatic activity/volume] in Serum or Plasma Ordered By: Michael Cerda on 28-10-4795GH [Catalytic activity/Vol]60 U/L30-223 [facility] HospitalCreatinine [Mass/volume] in Serum or Plasma Ordered By: Michael Cerda on 95-87-5118Iazhpkhhtc [Mass/Vol]0.81 mg/dL0.60-1.20 [facility] HospitalEosinophils Auto (Bld) [#/Vol]Ordered By: Michael Cerda on 41-00-4794Adzsxrirrfm (Bld) [#/Vol]0.0 10*3/uL0.0-0.45The [facility] HospitalEosinophils/100 WBC Auto (Bld)Ordered By: Michael Cerda on 54-03-2887Qzemmvqnots/100 WBC (Bld)0.2 %.[facility] Erythrocyte distribution width Auto (RBC) [Ratio]Ordered By: Michael Cerda on 64-13-1272Cbhdvpfvjyx distribution width (RBC) [Ratio]13.5 %11.9-15.3FThe Jewish HospitalGlucose [Mass/volume] in Serum or PlasmaOrdered By: Michael Cerda on 28-34-7193Eyccbag [Mass/Vol]103 mg/hP06-740UqcvlperhThe Christ HospitalComment on above:ADA recommended reference rangeRandom Glucose Reference Range is dependent on time and content of last meal. Glucose of more than 200 mg/dL in a nonstressed, ambulatory subject supports the diagnosisof Diabetes Mellitus.Hematocrit Auto (Bld) [Volume fraction]Ordered By: Michael Cerda on 63-35-5567Amqulumkpo (Bld) [Volume fraction]38.9 %34.0-46.4FThe Jewish HospitalHemoglobin [Mass/volume] in BloodOrdered By: Michael Cerda on 61-42-6516Vwwdrqxblk (Bld) [Mass/Vol]13.2 g/dL11.8-15.4FThe Jewish HospitalKetones Auto test strip (U) [Mass/Vol]Ordered By: Michael Cerda on 24-80-4205Pkcbfgc (U) [Mass/Vol]NegativeNegativeThe Christ HospitalLaboratory - CoagulationOrdered By: Michael Cerda on 68-21-5777FV Coag (PPP) [Time]12.0 s9.0-12.9The [facility] HospitalLaboratory - UrinalysisOrdered By: Michael Cerda on 71-49-8649Hurhqyx casts LM Ql (Urine sed) 0-8 [LPF]0-8The [facility] HospitalLeukocytes [#/volume] corrected for nucleated erythrocytes in Blood by Automated counOrdered By: Michael Cerda on 01-65-8536JNC corrected for nucl RBC Auto (Bld) [#/Vol]5.1 10*3/uL3.8-11.6 The [facility] HospitalLymphocytes Auto (Bld) [#/Vol]Ordered By: Michael Cerda on 13-00-4555Sachnccefiw (Bld) [#/Vol]0.6 10*3/uL1.00-4.8The [facility] HospitalLymphocytes/100 WBC Auto (Bld)Ordered By: Michael Cerda on 86-23-2791Ranbcusynkb/100 WBC (Bld)11.0 %.[facility] Auto (RBC) [Entitic mass]Ordered By: Michael Cerda on 19-91-4842UIW (RBC) [Entitic mass]33.0 pg24.7-34.3FThe Jewish HospitalMCHC Auto (RBC) [Mass/Vol]Ordered By: Michael Cerda on 14-25-2972MZHE (RBC) [Mass/Vol]34.0 g/dL 32.0-35.0The [facility] HospitalMCV Auto (RBC) [Entitic vol]Ordered By: Michael Cerda on 79-32-8719ALZ (RBC) [Entitic vol]97.0 eN88-470BqfnjrfbdThe Christ HospitalMonocyte distribution width [Entitic volume] in Blood by AutomatedOrdered By: Michael Cerda on 88-90-3621Dqmynlqk distribution width Auto (Bld) [Entitic vol]24.75 %0.00-20.00The [facility] HospitalComment on above:For adults in ED, MDW > 20.0 may be associated with a higher risk of sepsis during the first 12 hrs of hospital admissionMonocytes Auto (Bld) [#/Vol] Ordered By: Michael Cerda on 17-43-3158Ysqlcwnyz (Bld) [#/Vol]0.3 10*3/uL0.0-0.8 The [facility] HospitalMonocytes/100 WBC Auto (Bld)Ordered By: Michael Cerda on 78-85-3509Murxrroed/100 WBC (Bld)5.8 %.The [facility] HospitalNatriuretic peptide B [Mass/Vol]Ordered By: Michael Cerda on 09-28-2022 Natriuretic peptide B (Bld) [Mass/Vol]27.0 pg/mL5-100The [facility] HospitalNeutrophils Auto (Bld) [#/Vol]Ordered By: Michael Cerda on 09-28-2022 Neutrophils (Bld) [#/Vol]4.2 10*3/uL1.8-7.7FThe [facility] Hospital Neutrophils/100 WBC Auto (Bld)Ordered By: Michael Cerda on 09-28-2022 Neutrophils/100 WBC (Bld)82.5 %.The [facility] HospitalNitrite Test strip Ql (U)Ordered By: Michael Cerda on 81-54-4383Wkjewvh Ql (U)NegativeNegative The [facility] HospitalNo Panel InformationOrdered By: Michael Cerda on 16-91-4044T-Dimer Quantitative (PE/DVT)560 ng/mL0-243The [facility] HospitalComment on above:The reference range for D-dimer is <243 ng/mL [...] be increased in hospitalized patients due toco-morbid conditions.Estimated GFR (CKD-EPI)> 60.0 mL/Min The [facility] HospitalPharmacy Creatinine Clearance (Utoe374.50 The [facility] HospitalNucleated erythrocytes [Presence] in Blood by Automated countOrdered By: Michael Cerda on 51-45-3266Lbobqwnae RBC Auto Ql (Bld) 0.1 /100{WBC}0-0.5FThe Jewish HospitalPlatelet mean volume Auto (Bld) [Entitic vol]Ordered By: Michael Cerda on 05-64-6300Fzkxiqkr mean volume (Bld) [Entitic vol]7.4 fL6.3-10.7FThe Jewish HospitalPlatelet poor plasma international normalized ratio (INR) by coagulation assay (relatOrdered By: Michael Cerda on 67-37-9307FTH Coag (PPP) [Relative time]1.0 {INR}The [facility] HospitalComment on above:INR Therapeutic Range A) Pre- and Peroperative OAT started two weeks before surgery. NOT HIP SURGERY: 1.5 - 2.5 HIP SURGERY: 2 - 3B) Primary and secondary prevention of venous THROMBOSIS: 2 - 3C) Active venous thrombosis, pulmonary embolismand prevention of recurrent venous thrombosis: 2 - 3D) Prevention of arterial thromboembolismincluding patients with mechanical heart valves: 3 - 4.5Platelets Auto (Bld) [#/Vol] Ordered By: Michael Cerda on 03-73-5730Uukwqvttk (Bld) [#/Vol]197 10*3/iG800-065 The [facility] HospitalPotassium [Moles/volume] in Serum or Plasma Ordered By: Michael Cerda on 92-62-2319Okgdikppp [Moles/Vol]3.7 mmol/L3.5-5.1 [facility] HospitalProtein Auto test strip (U) [Mass/Vol]Ordered By: Michael Cerda on 69-74-7458Palbpwq (U) [Mass/Vol]NegativeNegativeThe Christ HospitalRBC Auto (Bld) [#/Vol]Ordered By: Michael Cerda on 30-10-2800UGH (Bld) [#/Vol]4.01 10*6/uL3.60-5.00[facility] Cancer Centererum or plasma anion gap determinationOrdered By: Michael Cerda on 31-35-2554Akinm gap [Moles/Vol]13.0 mmol/L6.0-15.0[facility], Cancer Centerodium [Moles/volume] in Serum or PlasmaOrdered By: Michael Cerda on 60-32-4467Qxnvez [Moles/Vol]138 mmol/Z222-542GpkmgztycThe [facility] Hospital Specific gravity Auto test strip (U) [Rel density]Ordered By: Michael Cerda on 73-08-0099Amiuslkk gravity (U) [Rel density]1.0151.001-1.030[facility], Cancer Centerquamous epithelial cells detection in urine sediment by light microscopyOrdered By: Michael Cerda 82-33-9672Hummvplzzf cells.squamous LM Ql (Urine sed)3-4 [HPF]0-2FThe Jewish HospitalTroponin I.cardiac [Mass/volume] in Serum or Plasma by Detection limit <= 0.01 ng/Ordered By: Michael Cerda on 58-16-1921Bwmclcaj I.cardiac DL <= 0.01 ng/mL [Mass/Vol]5.1 pg/mL0.0-15.0The [facility] HospitalUrea nitrogen [Mass/volume] in Serum or PlasmaOrdered By: Michael Cerda on 07-85-9796Lbbi nitrogen [Mass/Vol]11 mg/dL7-25The [facility] HospitalUrine bacteria detection by automated methodOrdered By: Michael Cerda on 73-09-2496Lreymqqq Auto Ql (U)None seenNone SeenThe Christ HospitalUrine clarity by refractometry automated Ordered By: Michael Cerda on 14-97-1699Mxzxwly Refractometry automated (U)Clear ClearThe Christ HospitalUrine culture routineOrdered By: Michael Cerda on 09-43-6225Gbpcvlym identified Cx Nom (U)2 DaysThe Christ HospitalUrine glucose measurement by automated test strip (mass/volume)Ordered By: Michael Cerda on 85-22-4660Aiqbyjm Auto test strip (U) [Mass/Vol]Normal mg/dL NormalThe Christ HospitalUrine hemoglobin detection by automated test stripOrdered By: Michael Cerda on 76-50-2130Dmzpzckymj Auto test strip Ql (U)NegativeNegativeThe Christ HospitalUrine leukocyte esterase detection by automated test stripOrdered By: Michael Cerda on 55-75-6177Dfufdvvzk esterase Auto test strip Ql (U)3+NegativeThe Christ Hospital Urobilinogen Auto test strip (U) [Mass/Vol]Ordered By: Michael Cerda on 24-28-9713Kxvnpnkdhwmn (U) [Mass/Vol]Normal mg/dLNormalThe Christ HospitalWBC Auto (Bld) [#/Vol]Ordered By: Michael Cerda on 16-96-5381MBM (Bld) [#/Vol]5.1 10*3/uL3.8-11.6FThe Jewish HospitalpH Auto test strip (U)Ordered By: Michael Cerda on 08-06-2066cA (U)6.5 [pH]5.0-9.0The [facility] HospitalCholesterol [Mass/volume] in Serum or PlasmaOrdered By: Nimesh Cerda on 11-27-6649Sxkoayniyka [Mass/Vol]213 mg/kJ608-270 The [facility] HospitalComment on above:Chol less than 200 mg/dl low riskChol 201-239 mg/dl borderline riskChol 240 mg/dl and greater high risk Cholesterol in LDL Calc [Mass/Vol]Ordered By: Nimesh Cerda on 28-47-4934Cuyrpdvbklg in LDL [Mass/Vol]126 mg/dL0-100The [facility] HospitalComment on above:LDL ATP III CLASSIFICATIONLDL less than 100 mg/dL OptimalLDL 100-129 mg/dL Near or above dfltqouBVX050-456 mg/dL Borderline highLDL 160-189 mg/dL HighLDL greater than 189 mg/dL Very highCholesterol in VLDL Calc [Mass/Vol]Ordered By: Nimesh Cerda on 14-96-0391Zkwqkbvlyub in VLDL [Mass/Vol]19 mg/dLOhioHealth Arthur G.H. Bing, MD, Cancer Centererum or plasma high density lipoprotein (HDL) cholesterol measurementOrdered By: Nimesh Cerda on 61-47-1254Soqfihjymwu in HDL [Mass/Vol]67 mg/gD25-31MftlsoahlThe Christ HospitalComment on above:HDL CHOL ATP-III CLASSIFICATION Cardiovascular RiskHDL > or equal to 60 mg/dL LOWHDL < 40 mg/dL HIGHSerum or plasma total cholesterol/high density lipoprotein (HDL) cholesterol mass rat Ordered By: Nimesh Cerda on 20-18-3930Qfehynenybf.total/Cholesterol in HDL [Mass ratio]3.2 {ratio}<5.0The [facility] HospitalThyrotropin [Units/volume] in Serum or PlasmaOrdered By: Nimesh Cerda on 09-04-2022 TSH Qn1.74 m[IU]/L0.45-5.33The [facility] HospitalTriglyceride [Mass/volume] in Serum or PlasmaOrdered By: Nimesh Cerda on 09-04-2022 Triglyceride [Mass/Vol]98 mg/dL0-149The [facility] HospitalComment on above:TRIG ATP III CLASSIFICATIONTRIG less than 150 mg/dL NormalTRIG 150-199 mg/dL Borderline highTRIG 200-500 mg/dL High TRIG greater than 500 mg/dL Very highStandard traceable to the Center for Disease Conrtrol and Prevention (CDC) test method.Vitamin D+Metabolites [Mass/volume] in Serum or PlasmaOrdered By: Nimesh Cerda on 43-50-5481Efvhgjw D+Metabolites [Mass/Vol]31.0 ng/mL 30-100The Christ HospitalComment on above:VITAMIN D STATUS 25(OH)VITAMIN D RANGE (ng/mL) Deficient <20 Insufficient 20 to <01Ohlcbzyddc08 to 100Reference: Franklyn MF,Benjamin GRAF, Andreina MARQUEZ, et al. Evaluation,treatment, and prevention of vitamin D deficiency; an Endocrine Society clinical practice guideline. JCEM. 2010; 96(7):1911-30.Alanine aminotransferase [Enzymatic activity/volume] in Serum or PlasmaOrdered By: Raffaele Ellsworth on 27-21-0290UOS [Catalytic activity/Vol]26 U/L7-52The [facility] HospitalAlbumin [Mass/volume] in Serum or Plasma by Bromocresol green (BCG) dye binding methoOrdered By: Raffaele Ellsworth on 84-14-6590Sjjmeln BCG dye [Mass/Vol]4.1 g/dL3.5-5.7FThe Jewish HospitalAlkaline phosphatase [Enzymatic activity/volume] in Serum or PlasmaOrdered By: Raffaele Ellsworth on 76-60-1950MMV [Catalytic activity/Vol]77 U/X17-646EqbanlrklThe Christ HospitalAmphetamine Screen Ql (U)Ordered By: Raffaele Ellsworth on 27-97-0769Ikfyzepcqcey Ql (U)NegativeNegativeThe Christ Hospital Aspartate aminotransferase [Enzymatic activity/volume] in Serum or PlasmaOrdered By: Raffaele Ellsworth on 44-36-8293BBN [Catalytic activity/Vol]29 U/L13-39 [facility] HospitalAutomated erythrocytes count in urine sediment (number/area)Ordered By: Raffaele Ellsworth on 19-52-0646MLN Auto (Urine sed) [#/Area]5-9 [HPF]0-4FThe Jewish HospitalAutomated leukocytes count in urine sediment (number/area)Ordered By: Raffaele Ellsworth on 61-95-5473COG Auto (Urine sed) [#/Area]10-19 [HPF]0-4FThe [facility] Hospital Barbiturates [Presence] in Urine by Screen methodOrdered By: Raffaele Ellsworth on 02-50-9600Krqfexkzmkhy Screen Ql (U)NegativeNegativeThe Christ HospitalBasophils Auto (Bld) [#/Vol]Ordered By: Raffaele Ellsworth on 05-21-3991Irjzqoejz (Bld) [#/Vol]0.0 10*3/uL0.0-0.2FThe Jewish HospitalBasophils/100 WBC Auto (Bld)Ordered By: Raffaele Ellsworth on 09-03-2022 Basophils/100 WBC (Bld)0.6 %.[facility] HospitalBenzodiazepines Screen Ql (U)Ordered By: Raffaele Ellsworth on 25-99-5772Qpvtoleaqxupfcw Ql (U) NegativeNegativeThe Christ HospitalBenzoylecgonine [Presence] in Urine by Screen methodOrdered By: Raffaele Ellsworth on 95-58-3836Flixiyjneqsrwka Screen Ql (U)NegativeNegMansfield HospitalBilirubin Test strip Ql (U)Ordered By: Raffaele Ellsworth on 62-07-5084Qpfjnulry Ql (U)Negative NegativeThe Christ HospitalBilirubin.total [Mass/volume] in Serum or PlasmaOrdered By: Raffaele Ellsworth on 59-51-4637Ctdcqsqfk [Mass/Vol]0.4 mg/dL0.3-1.0[facility] HospitalCalcium [Mass/volume] in Serum or PlasmaOrdered By: Raffaele Ellsworth on 99-88-0931Mputyja [Mass/Vol]9.6 mg/dL 8.6-10.3FThe Jewish HospitalCannabinoids [Presence] in Urine by Screen methodOrdered By: Raffaele Ellsworth on 42-57-6593Mhjvuorgeyal Screen Ql (U)NegativeNegMansfield HospitalComment on above:These are unconfirmed results and should not be used for legal purposes. Drug Cut-Off Concentration: AMPH 1000 ng/mL BOO 200 ng/mL HELGA 200 ng/mL COCM 300 ng/mL OP 300 ng/mL PCP 25 ng/mL THC 20 ng/mLCarbon dioxide, total [Moles/volume] in Serum or PlasmaOrdered By: Raffaele Ellsworth on 62-01-4371IJ0 [Moles/Vol]23.8 mmol/L 21.0-31.0[facility] HospitalChloride [Moles/volume] in Serum or PlasmaOrdered By: Raffaele Ellsworth 89-65-8378Veomdctv [Moles/Vol]107 mmol/L 98-107The [facility] HospitalColor Auto (U)Ordered By: Raffaele Ellsworth on 68-23-0918Dscoi (U)YellowYellowThe Christ Hospital Creatinine [Mass/volume] in Serum or PlasmaOrdered By: Raffaele Ellsworth on 11-89-8181Jnfkciwzus [Mass/Vol]0.76 mg/dL0.60-1.20[facility] HospitalEosinophils Auto (Bld) [#/Vol]Ordered By: Raffaele Ellsworth on 09-03-2022 Eosinophils (Bld) [#/Vol]0.1 10*3/uL0.0-0.45[facility] Eosinophils/100 WBC Auto (Bld)Ordered By: Raffaele Ellsworth on 09-03-2022 Eosinophils/100 WBC (Bld)2.0 %.[facility] HospitalErythrocyte distribution width Auto (RBC) [Ratio]Ordered By: Raffaele Ellsworth on 09-03-2022 Erythrocyte distribution width (RBC) [Ratio]14.8 %11.9-15.3FThe Jewish HospitalEthanol [Mass/volume] in Serum or PlasmaOrdered By: Raffaele Ellsworth on 49-50-0175Yfktmdd [Mass/Vol]mg/dLThe Christ Hospital Ethanol [Mass/Vol]TNPThe Christ HospitalComment on above:Test not performedGlobulin Calc (S) [Mass/Vol]Ordered By: Raffaele Ellsworth on 09-03-2022 Globulin (S) [Mass/Vol]2.9 g/dLThe Christ HospitalGlucose [Mass/volume] in Serum or PlasmaOrdered By: Raffaele Ellsworth on 09-03-2022 Glucose [Mass/Vol]79 mg/sU99-536YqrfvfxiqThe Christ HospitalComment on above:ADA recommended reference rangeRandom Glucose Reference Range is dependent on time and content of last meal. Glucose of more than 200 mg/dL in a nonstressed, ambulatory subject supports the diagnosisof Diabetes Mellitus. Hematocrit Auto (Bld) [Volume fraction]Ordered By: Raffaele Ellsworth on 55-88-9551Aqozjpzdup (Bld) [Volume fraction]38.3 %34.0-46.4FThe Jewish HospitalHemoglobin [Mass/volume] in BloodOrdered By: Raffaele Ellsworth on 45-28-8418Ajnuldddzy (Bld) [Mass/Vol]12.8 g/dL11.8-15.4FThe Jewish HospitalKetones Auto test strip (U) [Mass/Vol]Ordered By: Raffaele Ellsworth on 99-11-7563Xpsyjbe (U) [Mass/Vol]TraceNegativeThe Christ HospitalLaboratory - Chemistry and Chemistry - challengeOrdered By: Raffaele Ellsworth on 30-40-8367KGK/1.73 sq M.predicted MDRD (S/P/Bld) [Vol rate/Area]mL/min/{1.73_m2}[facility] HospitalLaboratory - UrinalysisOrdered By: Raffaele Ellsworth on 06-51-9452Egfoggl casts LM Ql (Urine sed)0-8 [LPF]0-8[facility] HospitalLeukocytes [#/volume] corrected for nucleated erythrocytes in Blood by Automated counOrdered By: Raffaele Ellsworth on 44-38-2492ECE corrected for nucl RBC Auto (Bld) [#/Vol]6.5 10*3/uL 3.8-11.6FThe Jewish HospitalLymphocytes Auto (Bld) [#/Vol]Ordered By: Raffaele Ellsworth on 69-31-8393Xwoymzgjege (Bld) [#/Vol]1.8 10*3/uL1.00-4.8 [facility] HospitalLymphocytes/100 WBC Auto (Bld)Ordered By: Raffaele Ellsworth on 10-47-4421Rgxfyoamfki/100 WBC (Bld)28.2 %.[facility]H Auto (RBC) [Entitic mass]Ordered By: Raffaele Ellsworth on 98-84-0828QEV (RBC) [Entitic mass]32.7 pg24.7-34.3FThe Jewish HospitalMCHC Auto (RBC) [Mass/Vol]Ordered By: Raffaele Ellsworth on 37-06-8156FJKD (RBC) [Mass/Vol]33.4 g/dL32.0-35.0[facility] HospitalMCV Auto (RBC) [Entitic vol]Ordered By: Raffaele Ellsworth on 36-34-7529ULL (RBC) [Entitic vol]97.9 aB06-765UeegymzfpThe Christ HospitalMonocyte distribution width [Entitic volume] in Blood by AutomatedOrdered By: Raffaele Ellsworth on 74-30-4866Iuzzyaqx distribution width Auto (Bld) [Entitic vol]18.00 % 0.00-20.00[facility] HospitalMonocytes Auto (Bld) [#/Vol]Ordered By: Raffaele Ellsworth on 70-48-6499Kiwotwrvu (Bld) [#/Vol]0.5 10*3/uL0.0-0.8 [facility] HospitalMonocytes/100 WBC Auto (Bld)Ordered By: Raffaele Ellsworth on 98-84-0312Yhhrqnlfj/100 WBC (Bld)7.1 %.[facility] HospitalNeutrophils Auto (Bld) [#/Vol]Ordered By: Raffaele Ellsworth on 71-57-6807Qpgpjuiemvq (Bld) [#/Vol]4.0 10*3/uL1.8-7.7FThe Jewish HospitalNeutrophils/100 WBC Auto (Bld)Ordered By: Raffaele Ellsworth on 09-03-2022 Neutrophils/100 WBC (Bld)62.1 %.[facility] HospitalNitrite Test strip Ql (U)Ordered By: Raffaele Ellsworth on 48-17-3285Ivxgoml Ql (U)Negative [facility] CenterNo Panel InformationOrdered By: Raffaele Ellsworth on 25-03-7934Agjbuhns Creatinine Clearance (Qclk728.74 [facility] HospitalNucleated erythrocytes [Presence] in Blood by Automated countOrdered By: Raffaele Ellsworth on 09-60-8209Rdixgawxj RBC Auto Ql (Bld)0.0 /100{WBC}0-0.5FThe Jewish HospitalOpiates [Presence] in Urine by Screen methodOrdered By: Raffaele Ellsworth on 84-81-0859Nikdmfn Screen Ql (U)NegativeNegativeThe Christ HospitalPhencyclidine Screen Ql (U)Ordered By: Raffaele Ellsworth on 62-92-6730Edgfgcrwuvpul Ql (U)Negative NegativeThe Christ HospitalPlatelet mean volume Auto (Bld) [Entitic vol]Ordered By: Raffaele Ellsworth on 61-49-7307Nuynrsoj mean volume (Bld) [Entitic vol]7.2 fL6.3-10.7FThe Jewish HospitalPlatelets Auto (Bld) [#/Vol]Ordered By: Raffaele Ellsworth on 68-07-2563Layjsmbie (Bld) [#/Vol] 241 10*3/eC440-057OnlozioriThe Christ HospitalPotassium [Moles/volume] in Serum or PlasmaOrdered By: Raffaele Ellsworth on 92-03-7068Qhyulkbhc [Moles/Vol] 4.0 mmol/L3.5-5.1FThe Jewish HospitalProtein Auto test strip (U) [Mass/Vol]Ordered By: Raffaele Ellsworth on 81-54-4319Wnirvdf (U) [Mass/Vol] NegativeNegativeThe Christ HospitalProtein [Mass/volume] in Serum or PlasmaOrdered By: Raffaele Ellsworth on 47-66-2677Eebitlc [Mass/Vol]7.0 g/dL 6.4-8.9The [facility] HospitalRBC Auto (Bld) [#/Vol]Ordered By: Raffaele Ellsworth on 82-69-7865FYG (Bld) [#/Vol]3.91 10*6/uL3.60-5.00[facility] Cancer Centererum or plasma albumin/globulin mass ratioOrdered By: Raffaele Ellsworth on 07-54-9327Bydpnvg/Globulin [Mass ratio]1.4 {ratio}[facility] Cancer Centererum or plasma anion gap determinationOrdered By: Raffaele Ellsworth on 17-87-4325Oglqg gap [Moles/Vol]12.2 mmol/L6.0-15.0[facility] Cancer Centerodium [Moles/volume] in Serum or PlasmaOrdered By: Raffaele Ellsworth on 62-59-9735Cqogog [Moles/Vol]139 mmol/G402-752TfenisayfOhioHealth Arthur G.H. Bing, MD, Cancer Centerpecific gravity Auto test strip (U) [Rel density]Ordered By: Raffaele Ellsworth on 63-26-7304Nnzulelz gravity (U) [Rel density]1.020 1.001-1.030[facility], Cancer Centerquamous epithelial cells detection in urine sediment by light microscopyOrdered By: Raffaele Ellsworth on 09-03-2022 Epithelial cells.squamous LM Ql (Urine sed)5-9 [HPF]0-2FThe Jewish HospitalUrea nitrogen [Mass/volume] in Serum or PlasmaOrdered By: Raffaele Ellsworth on 58-14-3842Rlvm nitrogen [Mass/Vol]9 mg/dL7-25[facility] HospitalUrine bacteria detection by automated methodOrdered By: Raffaele Ellsworth on 45-42-1829Eupdudya Auto Ql (U)None seenNone SeenThe Christ HospitalUrine clarity by refractometry automatedOrdered By: Raffaele Ellsworth on 74-80-4113Irsxnbu Refractometry automated (U)ClearClear [facility] HospitalUrine culture routineOrdered By: Raffaele Ellsworth on 83-64-4721Kzbufvbb identified Cx Nom (U)2 DaysThe Christ HospitalUrine glucose measurement by automated test strip (mass/volume) Ordered By: Raffaele Ellsworth on 69-68-9509Zsrrnrg Auto test strip (U) [Mass/Vol]Normal mg/dLNormMarion HospitalUrine hemoglobin detection by automated test stripOrdered By: Raffaele Ellsworth on 09-03-2022 Hemoglobin Auto test strip Ql (U)TraceNegativeThe [facility] Hospital Urine leukocyte esterase detection by automated test stripOrdered By: Raffaele Ellsworth on 30-95-9539Buwexnxfv esterase Auto test strip Ql (U)2+Negative [facility] HospitalUrobilinogen Auto test strip (U) [Mass/Vol] Ordered By: Raffaele Ellsworth on 17-91-8806Cnzqifbvosal (U) [Mass/Vol]Normal mg/dLNormMarion HospitalWBC Auto (Bld) [#/Vol]Ordered By: Raffaele Ellsworth on 83-39-6366DRT (Bld) [#/Vol]6.5 10*3/uL3.8-11.6FThe Jewish HospitalpH Auto test strip (U)Ordered By: Raffaele Ellsworth on 35-57-3361kO (U)5.0 [pH]5.0-9.0[facility] HospitalBasophils Auto (Bld) [#/Vol]Ordered By: Urbano Palma on 13-17-9531Fulngzytg (Bld) [#/Vol]0.0 10*3/uL0.0-0.2FThe Jewish HospitalBasophils/100 WBC Auto (Bld) Ordered By: Urbano Palma on 37-76-7025Ganzzijas/100 WBC (Bld)0.3 %.[facility] HospitalEosinophils Auto (Bld) [#/Vol]Ordered By: Urbano Palma on 83-67-0842Plxjojgbako (Bld) [#/Vol]0.0 10*3/uL0.0-0.45[facility] HospitalEosinophils/100 WBC Auto (Bld)Ordered By: Urbano Palma on 80-16-1937Mjwdimtzrjr/100 WBC (Bld)0.4 %.[facility] Erythrocyte distribution width Auto (RBC) [Ratio]Ordered By: Urbano Palma on 78-62-2063Daenjlebmmx distribution width (RBC) [Ratio]17.2 %11.9-15.3FThe Jewish HospitalHematocrit Auto (Bld) [Volume fraction]Ordered By: Urbano Palma on 31-34-5784Egiqvkeujm (Bld) [Volume fraction]30.3 %34.0-46.4 [facility] HospitalHemoglobin [Mass/volume] in BloodOrdered By: Urbano Palma on 02-56-7476Utgsudnnly (Bld) [Mass/Vol]10.2 g/dL11.8-15.4 [facility] HospitalLeukocytes [#/volume] corrected for nucleated erythrocytes in Blood by Automated counOrdered By: Urbano Palma on 08-13-2022 WBC corrected for nucl RBC Auto (Bld) [#/Vol]10.0 10*3/uL3.8-11.6FThe Jewish HospitalLymphocytes Auto (Bld) [#/Vol]Ordered By: Urbano Palma on 55-57-1881Lqfidqufohy (Bld) [#/Vol]1.7 10*3/uL1.00-4.8[facility] HospitalLymphocytes/100 WBC Auto (Bld)Ordered By: Urbano Palma on 25-92-0437Pzcotgmfewo/100 WBC (Bld)16.5 %.[facility] SystemH Auto (RBC) [Entitic mass]Ordered By: Urbano Palma on 28-95-3720UBI (RBC) [Entitic mass]32.9 pg24.7-34.3FThe Jewish HospitalMCHC Auto (RBC) [Mass/Vol]Ordered By: Urbano Palma on 34-60-9833DQCT (RBC) [Mass/Vol]33.6 g/dL 32.0-35.0[facility] HospitalMCV Auto (RBC) [Entitic vol]Ordered By: Urbano Palma on 88-61-8004NSG (RBC) [Entitic vol]97.8 nU94-161NjsfbscowThe Christ HospitalMonocytes Auto (Bld) [#/Vol]Ordered By: Urbano Palma on 56-01-1467Xudordoeu (Bld) [#/Vol]0.5 10*3/uL0.0-0.8[facility] HospitalMonocytes/100 WBC Auto (Bld)Ordered By: Urbano Palma on 08-13-2022 Monocytes/100 WBC (Bld)5.4 %.[facility] HospitalNeutrophils Auto (Bld) [#/Vol]Ordered By: Urbano Palma on 95-51-5071Wlqwteurnmt (Bld) [#/Vol]7.7 10*3/uL1.8-7.7FThe Jewish HospitalNeutrophils/100 WBC Auto (Bld) Ordered By: Urbano Palma on 71-91-6936Nunvevewzeh/100 WBC (Bld)77.4 %.[facility] HospitalNucleated erythrocytes [Presence] in Blood by Automated countOrdered By: Urbano Palma on 72-91-3522Sppszrmud RBC Auto Ql (Bld)0.0 /100{WBC}0-0.5FThe Jewish HospitalPlatelet mean volume Auto (Bld) [Entitic vol]Ordered By: Urbano Palma on 47-65-5760Wcfsdrho mean volume (Bld) [Entitic vol]8.2 fL6.3-10.7FThe Jewish HospitalPlatelets Auto (Bld) [#/Vol]Ordered By: Urbano Palma on 07-54-2766Rdulrdceh (Bld) [#/Vol]125 10*3/uL 150-450The [facility] HospitalRBC Auto (Bld) [#/Vol]Ordered By: Urbano Palma on 50-90-0177QUP (Bld) [#/Vol]3.10 10*6/uL3.60-5.00[facility] HospitalWBC Auto (Bld) [#/Vol]Ordered By: Urbano Palma on 72-01-3459UQY (Bld) [#/Vol]10.0 10*3/uL3.8-11.6FThe [facility] Hospital Glucose Glucometer (dC) [Mass/Vol]Ordered By: Urbano Palma on 08-12-2022 Glucose [Mass/Vol]82 mg/dLThe Christ HospitalComment on above: Random Glucose Reference Range is dependent on time and content of last meal. Glucose of more than 200 mg/dL in a nonstressed, ambulatory subject supports the diagnosis of Diabetes Mellitus.No Panel InformationOrdered By: Urbano Palma on 19-44-7820Njdvxvu Glucose CommentGlu2: cleaned meterThe Christ HospitalAmphetamine Screen Ql (U)Ordered By: Urbano Palma on 08-11-2022 Amphetamines Ql (U)NegativeNegMansfield HospitalAutomated erythrocytes count in urine sediment (number/area)Ordered By: Urbano Palma on 41-68-7771CRS Auto (Urine sed) [#/Area]0-1 [HPF]0-4FThe Jewish HospitalAutomated leukocytes count in urine sediment (number/area)Ordered By: Urbano Palma on 65-51-4139YDN Auto (Urine sed) [#/Area]50-100 [HPF]0-4FThe Jewish HospitalAutomated urine hyaline casts count (number/volume) Ordered By: Urbano Palma on 07-09-6304Eypzwsi casts Auto (U) [#/Vol]None seen [LPF]0-1FThe Jewish HospitalBarbiturates [Presence] in UrineOrdered By: Urbano Palma on 28-08-8434Onuaauezalkb Ql (U)NegativeNegMansfield HospitalBenzodiazepines [Presence] in UrineOrdered By: Urbano Palma on 84-42-0664Rehyziyghuwiudd Ql (U)NegativeNegMansfield HospitalBilirubin Test strip Ql (U)Ordered By: Urbano Palma on 08-11-2022 Bilirubin Ql (U)NegativeNegMansfield HospitalCast typing in urine sediment by light microscopyOrdered By: Urbano Palma on 21-41-7104Lxlrp LM Nom (Urine sed)None seen [LPF]None SeenThe Christ HospitalColor Auto (U)Ordered By: Urbano Palma on 44-57-0179Zfgos (U)YellowYellowThe Christ HospitalGlucose [Mass/volume] in Serum or PlasmaOrdered By: Urbano Palma on 03-03-1113Ygvfmwl [Mass/Vol]69 mg/cG54-012DjvdwceqkThe Christ HospitalComment on above:ADA recommended reference rangeRandom Glucose Reference Range is dependent on time and content of last meal. Glucose of more than 200 mg/dL in a nonstressed, ambulatory subject supports the diagnosisof Diabetes Mellitus.Ketones Auto test strip (U) [Mass/Vol]Ordered By: Urbano Palma on 73-94-8059Vbnjaxv (U) [Mass/Vol]TraceNegativeThe Christ HospitalLaboratory - Drug toxicologyOrdered By: Urbano Palma on 08-11-2022 Opiates Ql (U)NegativeNegMansfield HospitalNitrite Test strip Ql (U)Ordered By: Urbano Palma on 74-45-8222Goboglq Ql (U)Negative NegativeThe Christ HospitalPhencyclidine Screen Ql (U)Ordered By: Urbano Palma on 23-13-0970Cgofnjldzjjjo Ql (U)NegativeNegMansfield HospitalCommarshfield medical center on above:These are unconfirmed results and should not be used for legal purposes. Drug Cut-Off Concentration: AMPH 1000 ng/mL BOO 200 ng/mL HELGA 200 ng/mL COCM 300 ng/mL OP 300 ng/mL PCP 25 ng/mLProtein Auto test strip (U) [Mass/Vol]Ordered By: Urbano Palma on 38-03-1223Fbtsphx (U) [Mass/Vol]30 mg/dLNegMansfield HospitalReagin Ab [Presence] in Serum by RPROrdered By: Urbano Palma on 35-91-1067Ugircz Ab RPR Ql (S) Non-ReactiveNon ReactiveThe Christ HospitalComment on above: Performed at: [facility] [address] [id number] Director: Prabhakar Warren PhD, Phone: [phone] gravity Auto test strip (U) [Rel density]Ordered By: Urbano Palma on 79-94-1408Pmeivibi gravity (U) [Rel density]1.0211.001-1.030[facility] Cancer Centerquamous epithelial cells detection in urine sediment by light microscopyOrdered By: Urbano Palma on 69-51-6265Uvoroezxvd cells.squamous LM Ql (Urine sed)5-9 [HPF] 0-2FThe Jewish HospitalUrine bacteria detection by automated method Ordered By: Urbano Palma on 52-93-5361Gbozwkhn Auto Ql (U)1+None SeenThe Christ HospitalUrine clarity by refractometry automatedOrdered By: Urbano Palma on 29-65-1857Nljsiqa Refractometry automated (U)CloudyClear [facility] HospitalUrine cocaine detectionOrdered By: Urbano Palma on 72-42-3103Gzqmxpu Ql (U)NegativeNegMansfield HospitalUrine culture routineOrdered By: Urbano Palma on 73-05-5546Xpjtgdre identified Cx Nom (U)Cinthya albicansThe Christ HospitalUrine glucose measurement by automated test strip (mass/volume)Ordered By: Urbano Palma on 09-77-3940Rwydmaw Auto test strip (U) [Mass/Vol]Normal mg/dLCleveland Clinic Avon HospitalUrine hemoglobin detection by automated test stripOrdered By: Urbano Palma on 39-56-1283Yaobrdxmnl Auto test strip Ql (U) NegativeNegMansfield HospitalUrine leukocyte esterase detection by automated test stripOrdered By: Urbano Palma on 08-11-2022 Leukocyte esterase Auto test strip Ql (U)3+NegativeThe Christ HospitalUrobilinogen Auto test strip (U) [Mass/Vol]Ordered By: Urbano Palma on 34-07-8161Njkvvpafvnap (U) [Mass/Vol]Normal mg/dLNormalFirelands Regional Medical CenterpH Auto test strip (U)Ordered By: Urbano Palma on 29-00-4956tZ (U)5.5 [pH]5.0-9.0[facility] HospitalAlbumin [Mass/volume] in Serum or PlasmaOrdered By: CANDICE Cody on 62-04-5020Gbtkeqq [Mass/Vol] 2.7 g/dL3.2-5.5FThe Jewish HospitalBasophils Auto (Bld) [#/Vol] Ordered By: CANDICE Cody on 12-89-5209Nxrpllres (Bld) [#/Vol]0.0 10*3/uL 0.0-0.2FThe Jewish HospitalBasophils/100 WBC Auto (Bld)Ordered By: CANDICE Cody on 04-27-4189Mlenrlauk/100 WBC (Bld)0.3 %.[facility] HospitalCreatinine and Glomerular filtration rate.predicted panel (S/P/Bld)Ordered By: CANDICE Cody on 92-92-6043Neewwkxgdm [Mass/Vol] 0.64 mg/dL0.44-1.03[facility] HospitalEosinophils Auto (Bld) [#/Vol]Ordered By: CANDICE Cody on 11-74-9623Phiwxuwizpn (Bld) [#/Vol] 0.1 10*3/uL0.0-0.45[facility] HospitalEosinophils/100 WBC Auto (Bld)Ordered By: CANDICE Cody on 92-74-9595Utagixvzjuo/100 WBC (Bld)0.8 %.[facility] HospitalErythrocyte distribution width Auto (RBC) [Ratio]Ordered By: CANDICE oCdy on 96-76-1100Nqqtqhviltr distribution width (RBC) [Ratio]17.8 %11.9-15.3FThe Jewish HospitalEstimated glomerular filtration rate (GFR) non- AmericanOrdered By: CANDICE Cody on 24-23-7745OOB/1.73 sq M.predicted among non-blacks MDRD (S/P/Bld) [Vol rate/Area]> 60 mL/MinThe Christ HospitalGlobulin Calc (S) [Mass/Vol]Ordered By: CANDICE Cody on 61-50-1743Qmducoph (S) [Mass/Vol] 3.1 g/dLThe Christ HospitalHematocrit Auto (Bld) [Volume fraction] Ordered By: CANDICE Cody on 39-91-8374Rffanwxszp (Bld) [Volume fraction] 34.8 %34.0-46.4FThe Jewish HospitalHemoglobin [Mass/volume] in BloodOrdered By: CANDICE Cody on 73-14-2820Kvniysdqkg (Bld) [Mass/Vol] 11.5 g/dL11.8-15.4FThe Jewish HospitalLeukocytes [#/volume] corrected for nucleated erythrocytes in Blood by Automated counOrdered By: JASON Cody on 49-27-3014LDB corrected for nucl RBC Auto (Bld) [#/Vol]9.1 10*3/uL3.8-11.6FThe Jewish HospitalLymphocytes Auto (Bld) [#/Vol] Ordered By: CANDICE Cody on 94-34-0050Sowzggnityo (Bld) [#/Vol]1.6 10*3/uL1.00-4.8[facility] HospitalLymphocytes/100 WBC Auto (Bld) Ordered By: CANDICE Cody on 49-55-3857Fotkecpnhax/100 WBC (Bld)17.0 %. [facility] HospitalMCH Auto (RBC) [Entitic mass]Ordered By: JASON Cody on 28-38-0913PFM (RBC) [Entitic mass]32.3 pg24.7-34.3FThe Jewish HospitalMCHC Auto (RBC) [Mass/Vol]Ordered By: CANDICE Cody on 77-82-9063SXUX (RBC) [Mass/Vol]33.2 g/dL32.0-35.0[facility] HospitalMCV Auto (RBC) [Entitic vol]Ordered By: CANDICE Cody on 82-79-3642PIK (RBC) [Entitic vol]97.4 nJ70-595UwcokczuaThe Christ Hospital Monocytes Auto (Bld) [#/Vol]Ordered By: CANDICE Cody on 08-02-2022 Monocytes (Bld) [#/Vol]0.6 10*3/uL0.0-0.8[facility] Monocytes/100 WBC Auto (Bld)Ordered By: CANDICE Cody on 08-02-2022 Monocytes/100 WBC (Bld)6.8 %.[facility] HospitalNeutrophils Auto (Bld) [#/Vol]Ordered By: CANDICE Cody on 51-40-5991Niuycdqnmvu (Bld) [#/Vol]6.9 10*3/uL1.8-7.7FThe Jewish HospitalNeutrophils/100 WBC Auto (Bld)Ordered By: CANDICE Cody on 27-84-3843Beewhafdegu/100 WBC (Bld)75.1 %.[facility] HospitalNo Panel InformationOrdered By: JASON Cody on 23-17-0610Jxzqwzref GFR ()> 60 mL/Min [facility] HospitalComment on above:GFR estimated reference range: According to KDOQI guidelines, <60 ml/min/1.73m2 is sufficient todiagnose a patient with chronic kidney disease.Pharmacy Creatinine Clearance (Tgeq844.15 [facility] HospitalNucleated erythrocytes [Presence] in Blood by Automated countOrdered By: CANDICE Cody on 26-27-9325Crerrkyux RBC Auto Ql (Bld)0.0 /100{WBC}0-0.5FThe Jewish HospitalPlatelet mean volume Auto (Bld) [Entitic vol]Ordered By: CANDICE Cody on 71-29-0573Fsfemdsm mean volume (Bld) [Entitic vol]8.2 fL6.3-10.7FThe Jewish Hospital Platelets Auto (Bld) [#/Vol]Ordered By: CANDICE Cody on 08-02-2022 Platelets (Bld) [#/Vol]130 10*3/uD580-516SdnfcbcmlThe Christ Hospital Protein [Mass/volume] in Serum or PlasmaOrdered By: CANDICE Cody on 54-73-5782Eykachq [Mass/Vol]5.8 g/dL6.1-7.9[facility] HospitalRBC Auto (Bld) [#/Vol]Ordered By: CANDICE Cody on 22-41-9706JER (Bld) [#/Vol]3.57 10*6/uL3.60-5.00[facility] HospitalReagin Ab [Presence] in Serum by RPROrdered By: CANDICE Cody on 81-87-8511Hzgtey Ab RPR Ql (S)Non-ReactiveNon ReactiveThe Christ HospitalComment on above:Performed at: [facility] [id number] Director: Prabhakar Warren PhD, Phone: [phone] or plasma alanine aminotransferase measurement without P-5'-P (enzymatic activiOrdered By: CANDICE Cody on 48-55-1349ZKA No additional P-5'-P [Catalytic activity/Vol]12 U/K43-88ZwkecouxcOhioHealth Arthur G.H. Bing, MD, Cancer Centererum or plasma albumin/globulin mass ratioOrdered By: CANDICE Cody on 08-02-2022 Albumin/Globulin [Mass ratio]0.9 {ratio}[facility] Cancer Centererum or plasma alkaline phosphatase measurement (enzymatic activity/volume)Ordered By: CANDICE Cody on 01-42-7727DJU [Catalytic activity/Vol]97 U/L32-92 [facility] Cancer Centererum or plasma anion gap determinationOrdered By: CANDICE Cody on 87-46-6204Lkfok gap [Moles/Vol]11.3 mmol/L6.0-15.0 [facility] Cancer Centererum or plasma aspartate aminotransferase measurement (enzymatic activity/volume)Ordered By: CANDICE Cody on 76-07-9346UWM [Catalytic activity/Vol]19 U/F14-94OspigbynqOhioHealth Arthur G.H. Bing, MD, Cancer Centererum or plasma calcium measurement (mass/volume)Ordered By: CANDICE Cody on 30-98-7136Ocqhwsz [Mass/Vol]9.6 mg/dL8.2-10.2FPremier Health Miami Valley Hospital Northerum or plasma chloride measurement (moles/volume)Ordered By: JASON Cody on 56-80-5764Wubgqlqg [Moles/Vol]107 mmol/Z69-936RrhmwufbxOhioHealth Arthur G.H. Bing, MD, Cancer Centererum or plasma glucose measurement (mass/volume)Ordered By: CANDICE Cody on 62-67-4324Himjzzg [Mass/Vol]84 mg/vL48-893HcdiwnvkfThe Christ HospitalComment on above:ADA recommended reference rangeRandom Glucose Reference Range is dependent on time and content of last meal. Glucose of more than 200 mg/dL in a nonstressed, ambulatory subject supports the diagnosisof Diabetes Mellitus.Serum or plasma potassium measurement (moles/volume)Ordered By: CANDICE Cody on 25-18-6033Qissoqvza [Moles/Vol]3.8 mmol/L3.5-5.1FPremier Health Miami Valley Hospital Northerum or plasma sodium measurement (moles/volume)Ordered By: CANDICE Cody on 08-02-2022 Sodium [Moles/Vol]135 mmol/F759-310RcjkatjjmOhioHealth Arthur G.H. Bing, MD, Cancer Centererum or plasma total bilirubin measurement (mass/volume)Ordered By: CANDICE Cody on 40-46-4906Tdrhgzomb [Mass/Vol]0.6 mg/dL0.3-1.2FPremier Health Miami Valley Hospital Northerum or plasma total carbon dioxide measurement (moles/volume)Ordered By: CANDICE Cody on 49-22-0532ST1 [Moles/Vol]20.5 mmol/L22.0-30.0[facility] Centererum or plasma urea nitrogen measurement (mass/volume) Ordered By: CANDICE Cody on 45-37-9160Qxqh nitrogen [Mass/Vol]6 mg/dL 9-23[facility] Cancer Centererum or plasma uric acid measurement (mass/volume)Ordered By: CANDICE Cody on 43-28-9628Aihhe [Mass/Vol]4.5 mg/dL2.6-7.2FThe Jewish HospitalWBC Auto (Bld) [#/Vol]Ordered By: CANDICE Cody on 22-16-6988VWW (Bld) [#/Vol]9.1 10*3/uL3.8-11.6FThe Jewish HospitalAmphetamine Screen Ql (U)Ordered By: CANDICE Cody on 09-09-2759Vbbaadgofxdw Ql (U)NegativeNegMansfield HospitalAutomated erythrocytes count in urine sediment (number/area)Ordered By: CANDICE Cody on 27-77-4115MEC Auto (Urine sed) [#/Area]3-4 [HPF]0-4 [facility] HospitalAutomated leukocytes count in urine sediment (number/area)Ordered By: CANDICE Cody on 52-58-2712ULX Auto (Urine sed) [#/Area]50-100 [HPF]0-4FThe Jewish HospitalBarbiturates [Presence] in UrineOrdered By: CANDICE Cody on 85-15-8432Xhtephczvutw Ql (U) NegativeNegMansfield HospitalBenzodiazepines [Presence] in UrineOrdered By: CANDICE Cody on 64-63-4324Soikksqrqekxjby Ql (U) NegativeNegMansfield HospitalBilirubin Test strip Ql (U) Ordered By: CANDICE Cody on 43-52-4792Acaqlveqk Ql (U)NegativeNegative [facility] HospitalColor Auto (U)Ordered By: CANDICE Cody on 95-06-8805Kypsj (U)YellowYellowThe Christ HospitalKetones Auto test strip (U) [Mass/Vol]Ordered By: CANDICE Cody on 77-25-5147Izqvnal (U) [Mass/Vol]NegativeNegativeThe Christ HospitalLaboratory - Drug toxicologyOrdered By: CANDICE Cody on 70-10-3157Vzvcvyb Ql (U)Negative NegativeThe Christ HospitalLaboratory - UrinalysisOrdered By: JASON Cody on 32-06-1585Cdfmibz casts LM Ql (Urine sed)0-8 [LPF]0-8 [facility] HospitalNitrite Test strip Ql (U)Ordered By: CANDICE Cody on 58-75-4549Kgtsbsu Ql (U)NegativeNegMansfield HospitalPhencyclidine Screen Ql (U)Ordered By: CANDICE Cody on 23-76-3290Utbpqptpjiwjj Ql (U)NegativeNegMansfield Hospital Comment on above:These are unconfirmed results and should not be used for legal purposes. Drug Cut-Off Concentration: AMPH 1000 ng/mL BOO 200 ng/mL HELGA 200 ng/mL COCM 300 ng/mL OP 300 ng/mL PCP 25 ng/mLProtein Auto test strip (U) [Mass/Vol]Ordered By: CANDICE Cody on 00-60-4197Tedknmk (U) [Mass/Vol] NegativeNegBellevue Hospitalpecific gravity Auto test strip (U) [Rel density]Ordered By: CANDICE Cody on 47-95-0303Gfaqiqhn gravity (U) [Rel density]1.0141.001-1.030[facility] Squamous epithelial cells detection in urine sediment by light microscopyOrdered By: CANDICE Cody on 73-70-4150Gnxasmpkod cells.squamous LM Ql (Urine sed)5-9 [HPF]0-2FThe Jewish HospitalUrine bacteria detection by automated methodOrdered By: CANDICE Cody on 26-02-8631Voiiyvhm Auto Ql (U)None seenNone [facility] CampusUrine clarity by refractometry automatedOrdered By: CANDICE Cody on 49-11-3707Zqikhdd Refractometry automated (U)CloudyClearFThe Jewish HospitalUrine cocaine detectionOrdered By: CANDICE Cody on 03-84-3566Yzirdlj Ql (U) NegativeNegMansfield HospitalUrine culture routineOrdered By: CANDICE Cody on 84-48-1967Oylglhsd identified Cx Nom (U)2 Days [facility] HospitalBacteria identified Cx Nom (U)2 DaysThe Christ HospitalUrine glucose measurement by automated test strip (mass/volume)Ordered By: CANDICE Cody on 88-26-8478Jsywvnf Auto test strip (U) [Mass/Vol]Normal mg/dLNormMarion HospitalUrine hemoglobin detection by automated test stripOrdered By: CANDICE Cody on 04-52-8720Sejsawubfk Auto test strip Ql (U)NegativeNegativeThe Christ HospitalUrine leukocyte esterase detection by automated test stripOrdered By: CANDICE Cody on 59-25-7997Qbprueivd esterase Auto test strip Ql (U) 4+NegativeThe Christ HospitalUrobilinogen Auto test strip (U) [Mass/Vol]Ordered By: CANDICE Cody on 64-97-3499Tpgjtlrmodpo (U) [Mass/Vol]Normal mg/dLNormalThe Christ HospitalpH Auto test strip (U)Ordered By: CANDICE Cody on 40-12-6363qU (U)5.5 [pH]5.0-9.0[facility]. agalactiae Org specific cx Ql (Unsp spec)Ordered By: Urbano Palma on 59-41-5542Nvgfr B Streptococcus CultureStrep. agalactiae Grp B [facility] HospitalGroup B Streptococcus CultureStrep. 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 Patient has properly working pacemaker. Follow up in [address] Rita Olivia MD, FACC, FACP, FHRS with a device check I, Sheyla Castillo LPN, am scribing for and in the presence of, Dr. Rita Olivia MD, FACC, FACP, FHRS. Chief Complaint Patient here for 6 month follow-up with [facility]. She is 16 weeks Adult [...] any redness, swelling, or drainageof the site. See ROS, PMH, FMH, and surgical history for details. 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 Personal review of ECG and cardiac data [...] 4-second pause by loop recorder. History of negativeEP [...] minimize tachycardia Overweight AHA (more content not included)...NormalUH TouchworksTobacco Screening.on 83-19-6887Gipu risk assessmenta) No falls within the last yearMP-[facility] Work Phone: Tobacco use status CPHSb) NoMP-[facility] [place] [facility] DO Work Phone: Tobacco Screening.YesMP-[facility] DO Work Phone: Amphetamine Screen Ql (U)Ordered By: Michael Cerda on 09-15-1672Vmqvfjnsfakn Ql (U)NegativeNegMansfield Hospital Automated erythrocytes count in urine sediment (number/area)Ordered By: Michael Cerda on 51-90-9295VKZ Auto (Urine sed) [#/Area]0-1 [HPF]0-4FThe Jewish HospitalAutomated leukocytes count in urine sediment (number/area)Ordered By: Michael Cerda on 96-06-2427QJB Auto (Urine sed) [#/Area]50-100 [HPF]0-4 [facility] HospitalBarbiturates [Presence] in UrineOrdered By: Michael Cerda on 34-37-9294Qjfkgsppkysp Ql (U)NegativeNegMansfield HospitalBasophils Auto (Bld) [#/Vol]Ordered By: Michael Cerda on 07-15-2022 Basophils (Bld) [#/Vol]0.0 10*3/uL0.0-0.2FThe Jewish Hospital Basophils/100 WBC Auto (Bld)Ordered By: Michael Cerda on 77-54-9300Rtulteiwn/100 WBC (Bld)0.4 %.[facility] HospitalBenzodiazepines [Presence] in UrineOrdered By: Michael Cerda on 52-72-9832Ejwehddeujycbdt Ql (U)Negative NegativeThe Christ HospitalBilirubin Test strip Ql (U)Ordered By: Michael Cerda on 69-51-2586Ryhbloznr Ql (U)NegativeNegMansfield HospitalBody fluid albumin measurement (mass/volume)Ordered By: Michael Cerda on 28-04-3429Enrbznh (Body fld) [Mass/Vol]2.9 g/dL3.2-5.5FThe Jewish HospitalCannabinoids [Presence] in Urine by Screen methodOrdered By: Michael Cerda on 87-54-4251Sweqmwpcoyqs Screen Ql (U)NegativeNegMansfield HospitalComment on above:These are unconfirmed results and should not be used for legal purposes. Drug Cut-Off Concentration: AMPH 1000 ng/mL BOO 200 ng/mL HELGA 200 ng/mL COCM 300 ng/mL OP 300 ng/mL PCP 25 ng/mL THC 20 ng/mLCholesterol [Mass/volume] in Serum or PlasmaOrdered By: Eduardo Swain on 21-44-3942Ipcwfsrddiy [Mass/Vol]250 mg/bX888-497BlfoowkgrThe Christ HospitalComment on above:Chol less than 200 mg/dl low riskChol 201-239 mg/dl borderline riskChol 240 mg/dl and greater high riskCholesterol in LDL Calc [Mass/Vol]Ordered By: Eduardo Swain on 42-19-9881Gqunhwdeuvq in LDL [Mass/Vol] 138 mg/dL0-100The [facility] HospitalComment on above:LDL ATP III CLASSIFICATIONLDL less than 100 mg/dL OptimalLDL 100-129 mg/dL Near or above gdkldywGVC583-883 mg/dL Borderline highLDL 160-189 mg/dL HighLDL greater than 189 mg/dL Very highCholesterol in VLDL Calc [Mass/Vol]Ordered By: Eduardo Swain on 58-69-6240Obbbfpgjvhc in VLDL [Mass/Vol]40 mg/dLThe Christ HospitalColor Auto (U)Ordered By: Michael Cerda on 00-60-4672Qiqre (U)YellowYellow [facility] HospitalCreatinine and Glomerular filtration rate.predicted panel (S/P/Bld)Ordered By: Michael Cerda on 63-39-8733Ebdmehrsdo [Mass/Vol]0.66 mg/dL0.44-1.03[facility] HospitalEosinophils Auto (Bld) [#/Vol]Ordered By: Michael Cerda on 13-52-9456Nafdihbwftt (Bld) [#/Vol]0.0 10*3/uL0.0-0.45The [facility] HospitalEosinophils/100 WBC Auto (Bld) Ordered By: Michael Cerda on 15-57-4992Pfyzyipgbgh/100 WBC (Bld)0.4 %.The [facility] HospitalErythrocyte distribution width Auto (RBC) [Ratio]Ordered By: Michael Cerda on 20-60-2797Hrwmxqnwbvh distribution width (RBC) [Ratio]18.8 % 11.9-15.3Fire[facility] Medical CenterEstimated glomerular filtration rate (GFR) non- AmericanOrdered By: Michael Cerda on 38-80-6003MKK/1.73 sq M.predicted among non-blacks MDRD (S/P/Bld) [Vol rate/Area]> 60 mL/MinThe Christ HospitalGlobulin Calc (S) [Mass/Vol]Ordered By: Michael Cerda on 21-50-4930Zvocllzn (S) [Mass/Vol]3.2 g/dLThe Christ Hospital Hematocrit Auto (Bld) [Volume fraction]Ordered By: Michael Cerda on 07-15-2022 Hematocrit (Bld) [Volume fraction]34.4 %34.0-46.4FThe Jewish HospitalHemoglobin [Mass/volume] in BloodOrdered By: Michael Cerda on 07-15-2022 Hemoglobin (Bld) [Mass/Vol]11.3 g/dL11.8-15.4FThe Jewish Hospital Ketones Auto test strip (U) [Mass/Vol]Ordered By: Michael Cerda on 07-15-2022 Ketones (U) [Mass/Vol]2+NegativeThe Christ HospitalLaboratory - Drug toxicologyOrdered By: Michael Cerda on 88-70-0180Otkpbum Ql (U)Negative NegativeThe Christ HospitalLaboratory - UrinalysisOrdered By: Michael Cerda on 18-68-0850Yyjavza casts LM Ql (Urine sed)0-8 [LPF]0-8[facility] HospitalLeukocytes [#/volume] corrected for nucleated erythrocytes in Blood by Automated counOrdered By: Michael Cerda on 64-62-1804UUF corrected for nucl RBC Auto (Bld) [#/Vol]7.8 10*3/uL3.8-11.6FThe Jewish HospitalLymphocytes Auto (Bld) [#/Vol]Ordered By: Michael Cerda on 79-13-0364Bilzebqibhg (Bld) [#/Vol]1.2 10*3/uL1.00-4.8The [facility] HospitalLymphocytes/100 WBC Auto (Bld)Ordered By: Michael Cerda on 07-15-2022 Lymphocytes/100 WBC (Bld)15.2 %.The Christ HospitalMCH Auto (RBC) [Entitic mass]Ordered By: Michael Cerda on 39-96-4232XJB (RBC) [Entitic mass]31.8 pg24.7-34.3FThe Jewish HospitalMCHC Auto (RBC) [Mass/Vol]Ordered By: Michael Cerda on 84-70-0602SRZU (RBC) [Mass/Vol]33.0 g/dL32.0-35.0The [facility] HospitalMCV Auto (RBC) [Entitic vol]Ordered By: Michael Cerda on 25-09-4945KRC (RBC) [Entitic vol]96.4 zP95-803KobqiyveaThe Christ Hospital Monocyte distribution width [Entitic volume] in Blood by AutomatedOrdered By: Michael Cerda on 75-71-5788Nmkeplpo distribution width Auto (Bld) [Entitic vol] 19.01 %0.00-20.00The [facility] HospitalMonocytes Auto (Bld) [#/Vol] Ordered By: Michael Cerda on 86-57-6000Lxfrhotue (Bld) [#/Vol]0.4 10*3/uL0.0-0.8 [facility] HospitalMonocytes/100 WBC Auto (Bld)Ordered By: Michael Cerda on 96-75-3085Zttndmweo/100 WBC (Bld)5.1 %.[facility] HospitalNeutrophils Auto (Bld) [#/Vol]Ordered By: Michael Cerda on 07-15-2022 Neutrophils (Bld) [#/Vol]6.1 10*3/uL1.8-7.7FThe Jewish Hospital Neutrophils/100 WBC Auto (Bld)Ordered By: Michael Cerda on 07-15-2022 Neutrophils/100 WBC (Bld)78.9 %.The [facility] HospitalNitrite Test strip Ql (U)Ordered By: Michael Cerda on 61-58-9197Ihvyijg Ql (U)NegativeNegative [facility] HospitalNo Panel InformationOrdered By: Eduardo Swain on 82-49-412547889348-Hhzmxkc Vitamin D Total38.8 ng/mU74-537QvirbcnkaThe Christ HospitalComment on above:VITAMIN D STATUS 25(OH)VITAMIN D RANGE (ng/mL) Deficient <20 Insufficient 20 to <32Lixtsvbccg08 to 100Reference: Franklyn MF,Benjamin GRAF, Andreina MARQUEZ, et al. Evaluation,treatment, and prevention of vitamin D deficiency; an Endocrine Society clinical practice guideline. JCEM. 2010; 96(7):1911-30.No Panel InformationOrdered By: Michael Cerda on 66-69-9922Ejbwniafc GFR ()> 60 mL/MinThe Christ HospitalComment on above:GFR estimated reference range: According to KDOQI guidelines, <60 ml/min/1.73m2 is sufficient todiagnose a patient with chronic kidney disease.Pharmacy Creatinine Clearance (Xuxr765.00The [facility] HospitalNucleated erythrocytes [Presence] in Blood by Automated count Ordered By: Michael Cerda on 24-90-5910Zpleoldty RBC Auto Ql (Bld)0.1 /100{WBC} 0-0.5FThe Jewish HospitalPhencyclidine Screen Ql (U)Ordered By: Michael Cerda on 88-61-4821Swsojwvzkgwbz Ql (U)NegativeNegativeThe Christ HospitalPlatelet mean volume Auto (Bld) [Entitic vol]Ordered By: Michael Cerda on 56-49-0000Byvbmdjt mean volume (Bld) [Entitic vol]7.9 fL6.3-10.7 [facility] HospitalPlatelets Auto (Bld) [#/Vol]Ordered By: Michael Cerda on 13-05-4148Rcxgoplvr (Bld) [#/Vol]157 10*3/tB943-118GoqbwrnziThe Christ HospitalProtein Auto test strip (U) [Mass/Vol]Ordered By: Michael Cerda on 47-32-4511Euowqlh (U) [Mass/Vol]NegativeNegativeThe Christ HospitalProtein [Mass/volume] in Serum or PlasmaOrdered By: Michael Cerda on 21-36-6443Hxhdmek [Mass/Vol]6.1 g/dL6.1-7.9The [facility] HospitalRBC Auto (Bld) [#/Vol]Ordered By: Michael Cerda on 95-89-0574RRJ (Bld) [#/Vol]3.57 10*6/uL3.60-5.00[facility] Cancer Centererum or plasma alanine aminotransferase measurement without P-5'-P (enzymatic activiOrdered By: Michael Cerda on 60-91-5223CVO No additional P-5'-P [Catalytic activity/Vol]14 U/L10-60 [facility] Centererum or plasma albumin/globulin mass ratio Ordered By: Michael Cerda on 94-74-5287Vasahpz/Globulin [Mass ratio]0.9 {ratio} [facility] Centererum or plasma alkaline phosphatase measurement (enzymatic activity/volume)Ordered By: Michael Cerda on 50-91-4421TRW [Catalytic activity/Vol]83 U/M20-56ZdqvuzalsOhioHealth Arthur G.H. Bing, MD, Cancer Centererum or plasma anion gap determinationOrdered By: Michael Cerda on 14-57-5944Jtqxs gap [Moles/Vol]13.3 mmol/L6.0-15.0[facility] Cancer Centererum or plasma aspartate aminotransferase measurement (enzymatic activity/volume)Ordered By: Michael Cerda on 27-58-4648PRF [Catalytic activity/Vol]22 U/K70-35GpffqnemlOhioHealth Arthur G.H. Bing, MD, Cancer Centererum or plasma calcium measurement (mass/volume)Ordered By: Michael Cerda on 14-31-8122Wdekebw [Mass/Vol]9.5 mg/dL8.2-10.2FPremier Health Miami Valley Hospital Northerum or plasma chloride measurement (moles/volume) Ordered By: Michael Cerda on 25-06-7417Kykwzyxd [Moles/Vol]104 mmol/L95-114 [facility] Centererum or plasma ethanol measurement (mass/volume)Ordered By: Michael Cerda on 91-37-4817Exqxxgd [Mass/Vol]mg/dL The [facility] HospitalEthanol [Mass/Vol]TNPThe Christ HospitalComment on above:Test not performedSerum or plasma glucose measurement (mass/volume)Ordered By: Michael Cerda on 99-22-7871Odkgdxl [Mass/Vol]82 mg/dL 70-100The [facility] HospitalComment on above:ADA recommended reference rangeRandom Glucose Reference Range is dependent on time and content of last meal. Glucose of more than 200 mg/dL in a nonstressed, ambulatory subject supports the diagnosisof Diabetes Mellitus.Serum or plasma high density lipoprotein (HDL) cholesterol measurementOrdered By: Eduardo Swain on 98-01-6199Oynkwdehovq in HDL [Mass/Vol]72 mg/pM78-96WtlhvtkkdThe Christ HospitalComment on above:HDL CHOL ATP-III CLASSIFICATION Cardiovascular RiskHDL > or equal to 60 mg/dL LOWHDL < 40 mg/dL HIGHSerum or plasma potassium measurement (moles/volume)Ordered By: Michael Cerda on 96-85-5660Vrmsmcigf [Moles/Vol]3.6 mmol/L3.5-5.1FPremier Health Miami Valley Hospital Northerum or plasma sodium measurement (moles/volume)Ordered By: Michael Cerda on 05-57-8671Aidqxw [Moles/Vol]135 mmol/T229-893KtudthxjoOhioHealth Arthur G.H. Bing, MD, Cancer Centererum or plasma total bilirubin measurement (mass/volume)Ordered By: Michael Cerda on 24-34-7923Hpwkaqexy [Mass/Vol]0.6 mg/dL0.3-1.2FPremier Health Miami Valley Hospital Northerum or plasma total carbon dioxide measurement (moles/volume)Ordered By: Michael Cerda on 07-15-2022 CO2 [Moles/Vol]21.3 mmol/L22.0-30.0[facility] Cancer Centererum or plasma total cholesterol/high density lipoprotein (HDL) cholesterol mass rat Ordered By: Eduardo Swain on 96-23-7798Lepfpbbsuys.total/Cholesterol in HDL [Mass ratio]3.5 {ratio}<5.0[facility] Centererum or plasma urea nitrogen measurement (mass/volume)Ordered By: Michael Cerda on 68-95-0710Wbje nitrogen [Mass/Vol]4 mg/dL9-23[facility], Cancer Centerpecific gravity Auto test strip (U) [Rel density]Ordered By: Michael Cerda on 60-11-3414Wfwvoqiv gravity (U) [Rel density]1.0101.001-1.030[facility] Squamous epithelial cells detection in urine sediment by light microscopyOrdered By: Michael Cerda on 23-16-9631Fidobvaqty cells.squamous LM Ql (Urine sed)5-9 [HPF]0-2FThe Jewish HospitalTSH DL <= 0.005 mIU/L QnOrdered By: Eduardo Swain on 97-73-6441RET Qn2.04 m[IU]/L0.45-5.33The [facility] HospitalTriglyceride [Mass/volume] in Serum or PlasmaOrdered By: Eduardo Swain on 37-11-4312Vpcuwrlyuwbb [Mass/Vol]200 mg/vM73-667YgkztbqgyThe Christ HospitalComment on above:TRIG ATP III CLASSIFICATIONTRIG less than 150 mg/dL NormalTRIG 150-199 mg/dL Borderline highTRIG 200-500 mg/dL High TRIG greater than 500 mg/dL Very highStandard traceable to the Center for Disease Co nrtrol and Prevention (CDC) test method.Urine bacteria detection by automated methodOrdered By: Michael Cerda on 55-29-4655Pvvllbex Auto Ql (U)None seenNone SeenThe Christ HospitalUrine clarity by refractometry automated Ordered By: Michael Cerda on 63-38-0841Vunjcvq Refractometry automated (U)Cloudy ClearThe Christ HospitalUrine cocaine detectionOrdered By: Michael Cerda on 93-08-9898Ljxugej Ql (U)NegativeNegativeThe Christ HospitalUrine culture routineOrdered By: Michael Cerda on 90-56-8671Zpioxstk identified Cx Nom (U)2 DaysThe Christ HospitalUrine glucose measurement by automated test strip (mass/volume)Ordered By: Michael Cerda on 22-00-0306Phsudvx Auto test strip (U) [Mass/Vol]Normal mg/dLNormalThe Christ HospitalUrine hemoglobin detection by automated test stripOrdered By: Michael Cerda on 12-26-1460Tugbjeumkd Auto test strip Ql (U)NegativeNegWright-Patterson Medical CenterUrine leukocyte esterase detection by automated test stripOrdered By: Michael Cerda on 16-03-3003Xapqzuruu esterase Auto test strip Ql (U)4+NegativeThe Christ HospitalUrobilinogen Auto test strip (U) [Mass/Vol]Ordered By: Michael Cerda on 81-13-2028Xpixgkibdpjf (U) [Mass/Vol]Normal mg/dLNormalThe Christ HospitalWBC Auto (Bld) [#/Vol]Ordered By: Michael Cerda on 63-80-7433UZE (Bld) [#/Vol]7.8 10*3/uL 3.8-11.6FThe Jewish HospitalpH Auto test strip (U)Ordered By: Michael Cerda on 69-77-4326kR (U)5.5 [pH]5.0-9.0[facility] Basophils Auto (Bld) [#/Vol]Ordered By: Urbano Palma on 25-56-6453Zhcxdnirv (Bld) [#/Vol]0.0 10*3/uL0.0-0.2FThe Jewish HospitalBasophils/100 WBC Auto (Bld)Ordered By: Urbano Palma on 55-60-6809Fdoatnpkp/100 WBC (Bld)0.4 %.[facility] HospitalEosinophils Auto (Bld) [#/Vol]Ordered By: Urbano Palma on 79-64-7862Idldqdahfga (Bld) [#/Vol]0.1 10*3/uL0.0-0.45[facility] HospitalEosinophils/100 WBC Auto (Bld)Ordered By: Urbano Palma on 47-43-2214Pcogoodrgih/100 WBC (Bld)1.0 %.[facility] Erythrocyte distribution width Auto (RBC) [Ratio]Ordered By: Urbano Palma on 01-07-9956Fzhrrjfwcmu distribution width (RBC) [Ratio]19.0 %11.9-15.3FThe Jewish HospitalHematocrit Auto (Bld) [Volume fraction]Ordered By: Urbano Palma on 51-07-0898Brxurnurlg (Bld) [Volume fraction]37.4 %34.0-46.4 [facility] HospitalHemoglobin [Mass/volume] in BloodOrdered By: Urbano Palma on 76-04-8247Knxbonmiru (Bld) [Mass/Vol]12.2 g/dL11.8-15.4 [facility] HospitalLeukocytes [#/volume] corrected for nucleated erythrocytes in Blood by Automated counOrdered By: Urbano Palma on 07-09-2022 WBC corrected for nucl RBC Auto (Bld) [#/Vol]8.1 10*3/uL3.8-11.6FThe Jewish HospitalLymphocytes Auto (Bld) [#/Vol]Ordered By: Urbano Palma on 29-96-2076Nrjwrvdeexo (Bld) [#/Vol]1.2 10*3/uL1.00-4.8The [facility] HospitalLymphocytes/100 WBC Auto (Bld)Ordered By: Urbano Palma on 44-53-4938Bseornjzpds/100 WBC (Bld)14.9 %.[facility] Auto (RBC) [Entitic mass]Ordered By: Urbano Palma on 51-50-9892RQR (RBC) [Entitic mass]31.4 pg24.7-34.3FThe Jewish HospitalMCHC Auto (RBC) [Mass/Vol]Ordered By: Urbano Palma on 25-04-2656WZNM (RBC) [Mass/Vol]32.7 g/dL 32.0-35.0The [facility] HospitalMCV Auto (RBC) [Entitic vol]Ordered By: Urbano Palma on 81-60-9513SIS (RBC) [Entitic vol]95.8 dW38-149WuugmhsgjThe Christ HospitalMonocytes Auto (Bld) [#/Vol]Ordered By: Urbano Palma on 63-46-0999Ipbkdqqbt (Bld) [#/Vol]0.4 10*3/uL0.0-0.8The [facility] HospitalMonocytes/100 WBC Auto (Bld)Ordered By: Urbano Palma on 07-09-2022 Monocytes/100 WBC (Bld)5.1 %.[facility] HospitalNeutrophils Auto (Bld) [#/Vol]Ordered By: Urbano Palma on 19-96-7129Jjqrxnvqltr (Bld) [#/Vol]6.3 10*3/uL1.8-7.7FThe Jewish HospitalNeutrophils/100 WBC Auto (Bld) Ordered By: Urbano Palma on 44-14-8781Esuoqwbfcos/100 WBC (Bld)78.6 %.[facility] HospitalNucleated erythrocytes [Presence] in Blood by Automated countOrdered By: Urbano Palma on 92-53-5355Klqvaxjig RBC Auto Ql (Bld)0.1 /100{WBC}0-0.5FThe Jewish HospitalPlatelet mean volume Auto (Bld) [Entitic vol]Ordered By: Urbano Palma on 39-06-9017Qnddpptl mean volume (Bld) [Entitic vol]8.2 fL6.3-10.7FThe Jewish HospitalPlatelets Auto (Bld) [#/Vol]Ordered By: Urbano Palma on 76-99-5906Llzbgltfd (Bld) [#/Vol]180 10*3/uL 150-450The [facility] HospitalRBC Auto (Bld) [#/Vol]Ordered By: Urbano Palma on 53-96-4098KFN (Bld) [#/Vol]3.91 10*6/uL3.60-5.00The [facility] HospitalWBC Auto (Bld) [#/Vol]Ordered By: Urbano Palma on 27-14-0470AUO (Bld) [#/Vol]8.1 10*3/uL3.8-11.6FThe Jewish Hospital Serum or plasma glucose tolerance 3 hours panelOrdered By: Urbano Palma on 36-55-3820Kfmhbrk tolerance 3 hours panelSee commentThe Christ HospitalComment on above:FASTING 82 Col: 06/30/22 0616 1HR GLU 215 Col: 06/30/22 0800 2HR GLU 194 Col: 06/30/22 0901 3HR GLU71 Col: 06/30/22 1000Amphetamine Screen Ql (U)Ordered By: DELANEY VARGAS on 33-77-3227Swiywrzqdbqj Ql (U) NegativeNegativeThe Christ HospitalAutomated erythrocytes count in urine sediment (number/area)Ordered By: DELANEY VARGAS on 81-32-8977YNB Auto (Urine sed) [#/Area]1-2 [HPF]0-4FThe Jewish HospitalAutomated leukocytes count in urine sediment (number/area)Ordered By: DELANEY VARGAS on 12-69-9630DIO Auto (Urine sed) [#/Area]50-100 [HPF]0-4FThe Jewish HospitalAutomated urine hyaline casts count (number/volume)Ordered By: DELANEY VARGAS on 83-78-2098Amakdvl casts Auto (U) [#/Vol]None seen [LPF]0-1 [facility] HospitalAutomated urine sediment calcium oxalate crystal count by microscopy (number/high powOrdered By: DELANEY VARGAS on 54-04-0039Sbelljo oxalate crystals LM.HPF (Urine sed) [#/Area]3+ [HPF][facility] HospitalBarbiturates [Presence] in UrineOrdered By: DELANEY VARAGS on 84-37-3859Hhpsxfsmmjfg Ql (U)NegativeNegativeThe Christ HospitalBenzodiazepines [Presence] in UrineOrdered By: DELANEY VARGAS on 80-44-1668Wvdjbljdhpkitvh Ql (U)NegativeNegMansfield HospitalBilirubin Test strip Ql (U)Ordered By: DELANEY VARGAS on 06-26-2022 Bilirubin Ql (U)1+NegativeThe Christ HospitalColor Auto (U)Ordered By: DELANEY VARGAS on 89-72-5835Kvcqp (U)Dark yellowYellowThe Christ HospitalFetal fibronectinOrdered By: DELANEY VARGAS on 06-26-2022 Fibronectin. (Vag fld) [Mass/Vol]NegativeNegativeThe Christ HospitalKetones Auto test strip (U) [Mass/Vol]Ordered By: DELANEY VARGAS on 12-67-2860Nyjxctb (U) [Mass/Vol]1+NegativeThe Christ Hospital Laboratory - Drug toxicologyOrdered By: DELANEY VARGAS on 52-35-8083Lkztcor Ql (U)NegativeNegativeThe Christ HospitalNitrite Test strip Ql (U) Ordered By: DELANEY VARGAS on 87-98-4523Nhjwcsx Ql (U)NegativeNegative The [facility] HospitalNo Panel InformationOrdered By: DELANEY VARGAS on 87-84-7987Cnzkc Membranes Rupture (PAMG-1)NegativeNegative [facility] HospitalPhencyclidine Screen Ql (U)Ordered By: DELANEY VARGAS on 64-93-6375Ykmfpfnvvkcez Ql (U)NegativeNegMansfield HospitalComment on above:These are unconfirmed results and should not be used for legal purposes. Drug Cut-Off Concentration: AMPH 1000 ng/mL BOO 200 ng/mL HELGA 200 ng/mL COCM 300 ng/mL OP 300 ng/mL PCP 25 ng/mLProtein Auto test strip (U) [Mass/Vol]Ordered By: DELANEY VARGAS on 78-35-9989Iajnbdi (U) [Mass/Vol]30 mg/dLNegBellevue Hospitalpecific gravity Auto test strip (U) [Rel density]Ordered By: DELANEY VARGAS on 54-88-6461Gxtcepth gravity (U) [Rel density]1.0291.001-1.030[facility] Squamous epithelial cells detection in urine sediment by light microscopyOrdered By: DELANEY VARGAS on 13-06-2577Gjqymitplg cells.squamous LM Ql (Urine sed)5-9 [HPF]0-2FThe Jewish HospitalUrine bacteria detection by automated methodOrdered By: DELANEY VARGAS on 60-13-6777Bawoyydp Auto Ql (U)None seen None SeenThe Christ HospitalUrine clarity by refractometry automatedOrdered By: DELANEY VARGAS on 61-02-4003Osguwqb Refractometry automated (U)TurbidCleLake County Memorial Hospital - WestUrine cocaine detection Ordered By: DELANEY VARGAS on 42-78-2172Ypvkyht Ql (U)NegativeNegWright-Patterson Medical CenterUrine culture routineOrdered By: DELANEY VARGAS on 42-10-1735Bjcpdtap identified Cx Nom (U)Cinthya albicansThe Christ HospitalUrine glucose measurement by automated test strip (mass/volume)Ordered By: DELANEY VARGAS on 76-44-0755Infqkmy Auto test strip (U) [Mass/Vol]Normal mg/dLNormalThe Christ HospitalUrine hemoglobin detection by automated test stripOrdered By: DELANEY VARGAS on 08-41-4644Taqyhlmrew Auto test strip Ql (U)NegativeNegMansfield HospitalUrine leukocyte esterase detection by automated test stripOrdered By: DELANEY VARGAS on 70-57-3088Ceqheothd esterase Auto test strip Ql (U)3+ NegativeThe Christ HospitalUrine sediment crystal identification by light microscopyOrdered By: DELANEY VARGAS on 58-02-3472Lojwuxwr LM Nom (Urine sed)None seen [HPF]The Christ HospitalUrobilinogen Auto test strip (U) [Mass/Vol]Ordered By: DELANEY VARGAS on 09-05-0535Nzwcqrlydfll (U) [Mass/Vol]Normal mg/dLNormalThe Christ HospitalYeast detection in urine sediment by light microscopyOrdered By: DELANEY VARGAS on 06-26-2022 Yeast LM Ql (Urine sed)2+ [HPF]None SeenThe Christ HospitalpH Auto test strip (U)Ordered By: DELANEY VARGAS on 51-46-5215bL (U)5.5 [pH]5.0-9.0 The [facility] HospitalAutomated erythrocytes count in urine sediment (number/area)Ordered By: Michael Cerda on 08-01-4973PZN Auto (Urine sed) [#/Area] 3-4 [HPF]0-4FThe Jewish HospitalAutomated leukocytes count in urine sediment (number/area)Ordered By: Michael Cerda on 18-46-8019CGD Auto (Urine sed) [#/Area]Innumerable [HPF]0-4FThe Jewish HospitalBasophils Auto (Bld) [#/Vol]Ordered By: PROVIDER TEMP on 82-50-8663Gyxqqdteh (Bld) [#/Vol]0.0 10*3/uL0.0-0.2FThe Jewish HospitalBasophils/100 WBC Auto (Bld) Ordered By: PROVIDER TEMP on 24-85-5383Mmpqeswlr/100 WBC (Bld)0.1 %.[facility] HospitalBilirubin Test strip Ql (U)Ordered By: Michael Cerda on 61-67-6288Jvptrbrmg Ql (U)NegativeNegativeThe Christ HospitalBody fluid albumin measurement (mass/volume)Ordered By: PROVIDER TEMP on 06-25-2022 Albumin (Body fld) [Mass/Vol]2.7 g/dL3.2-5.5FThe Jewish Hospital Casts typing in urine sediment by light microscopyOrdered By: Michael Cerda on 41-50-2472Fafir LM Nom (Urine sed)None seen [LPF]None SeenThe Christ HospitalColor Auto (U)Ordered By: Michael Cerda on 45-34-2085Dgtnt (U) YellowYellowThe Christ HospitalCreatinine and Glomerular filtration rate.predicted panel (S/P/Bld)Ordered By: PROVIDER TEMP on 06-25-2022 Creatinine [Mass/Vol]0.64 mg/dL0.44-1.03[facility] Eosinophils Auto (Bld) [#/Vol]Ordered By: PROVIDER TEMP on 22-28-0507Vmhrwwzhfnm (Bld) [#/Vol]0.1 10*3/uL0.0-0.45[facility] Eosinophils/100 WBC Auto (Bld)Ordered By: PROVIDER TEMP on 06-25-2022 Eosinophils/100 WBC (Bld)0.7 %.The [facility] HospitalErythrocyte distribution width Auto (RBC) [Ratio]Ordered By: PROVIDER TEMP on 06-25-2022 Erythrocyte distribution width (RBC) [Ratio]16.1 %11.9-15.3FThe Jewish HospitalEstimated glomerular filtration rate (GFR) non- Ordered By: PROVIDER TEMP on 33-09-7144DVB/1.73 sq M.predicted among non-blacks MDRD (S/P/Bld) [Vol rate/Area]> 60 mL/MinThe Christ Hospital Globulin Calc (S) [Mass/Vol]Ordered By: PROVIDER TEMP on 80-77-1915Ycpbwmzj (S) [Mass/Vol]3.3 g/dLThe Christ HospitalHematocrit Auto (Bld) [Volume fraction]Ordered By: PROVIDER TEMP on 28-69-8741Sqdwcywsbr (Bld) [Volume fraction]29.0 %34.0-46.4FThe Jewish HospitalHemoglobin [Mass/volume] in BloodOrdered By: PROVIDER TEMP on 13-89-2666Yxpjwvvugh (Bld) [Mass/Vol]9.9 g/dL11.8-15.4FThe Jewish HospitalKetones Auto test strip (U) [Mass/Vol]Ordered By: Michael Cerda on 82-51-1285Hhsiutb (U) [Mass/Vol] 4+NegativeThe Christ HospitalLaboratory - UrinalysisOrdered By: Michael Cerda on 66-55-4067Dnnycup casts LM Ql (Urine sed)0-1 [LPF]0-8The [facility] HospitalLeukocytes [#/volume] corrected for nucleated erythrocytes in Blood by Automated counOrdered By: PROVIDER TEMP on 06-25-2022 WBC corrected for nucl RBC Auto (Bld) [#/Vol]10.5 10*3/uL3.8-11.6FThe Jewish HospitalLymphocytes Auto (Bld) [#/Vol]Ordered By: PROVIDER TEMP on 57-08-3030Ihbricttqai (Bld) [#/Vol]1.8 10*3/uL1.00-4.8The [facility] HospitalLymphocytes/100 WBC Auto (Bld)Ordered By: PROVIDER TEMP on 76-68-8166Igdfaffqpze/100 WBC (Bld)16.7 %.[facility] Auto (RBC) [Entitic mass]Ordered By: PROVIDER TEMP on 67-51-0702MGF (RBC) [Entitic mass]31.6 pg24.7-34.3FSt. Francis HospitalHC Auto (RBC) [Mass/Vol]Ordered By: PROVIDER TEMP on 80-69-4877ZSAJ (RBC) [Mass/Vol]34.2 g/dL 32.0-35.0The [facility] HospitalMCV Auto (RBC) [Entitic vol]Ordered By: PROVIDER TEMP on 99-92-5290JUI (RBC) [Entitic vol]92.4 yT91-451UhunjrsrlThe Christ HospitalMonocyte distribution width [Entitic volume] in Blood by AutomatedOrdered By: PROVIDER TEMP on 30-35-9990Lseknfqq distribution width Auto (Bld) [Entitic vol]18.74 %0.00-20.00The [facility] HospitalMonocytes Auto (Bld) [#/Vol]Ordered By: PROVIDER TEMP on 63-92-7978Jmvfunbnc (Bld) [#/Vol] 0.8 10*3/uL0.0-0.8The [facility] HospitalMonocytes/100 WBC Auto (Bld) Ordered By: PROVIDER TEMP on 16-38-5260Pidanoosz/100 WBC (Bld)7.5 %.The [facility] HospitalNeutrophils Auto (Bld) [#/Vol]Ordered By: PROVIDER TEMP on 34-66-3275Epnutuoobix (Bld) [#/Vol]7.9 10*3/uL1.8-7.7FThe Jewish HospitalNeutrophils/100 WBC Auto (Bld)Ordered By: PROVIDER TEMP on 62-98-7707Bojbxjxzgog/100 WBC (Bld)75.0 %.[facility] Nitrite Test strip Ql (U)Ordered By: Michael Cerda on 76-46-3135Ozigtzx Ql (U) NegativeNegativeThe Christ HospitalNo Panel InformationOrdered By: PROVIDER TEMP on 18-57-7109Bdqliukok GFR ()> 60 mL/MinThe Christ HospitalComment on above:GFR estimated reference range: According to KDOQI guidelines, <60 ml/min/1.73m2 is sufficient todiagnose a patient with chronic kidney disease.Pharmacy Creatinine Clearance (Rbnd513.48 [facility] HospitalNucleated erythrocytes [Presence] in Blood by Automated countOrdered By: PROVIDER TEMP on 52-56-3553Juehkqsxc RBC Auto Ql (Bld)0.3 /100{WBC}0-0.5FThe Jewish HospitalPlatelet mean volume Auto (Bld) [Entitic vol]Ordered By: PROVIDER TEMP on 69-49-0004Ztsazopd mean volume (Bld) [Entitic vol]7.8 fL6.3-10.7FThe Jewish Hospital Platelets Auto (Bld) [#/Vol]Ordered By: PROVIDER TEMP on 04-13-0613Vbisfsqkc (Bld) [#/Vol]182 10*3/xE256-179Hucbljsai Regional Medical CenterProtein Auto test strip (U) [Mass/Vol]Ordered By: Michael Cerda on 91-77-0578Rzrzejo (U) [Mass/Vol]Trace mg/dLNegativeThe Christ HospitalProtein [Mass/volume] in Serum or PlasmaOrdered By: PROVIDER TEMP on 60-78-3462Knppxuv [Mass/Vol]6.0 g/dL6.1-7.9The [facility] HospitalRBC Auto (Bld) [#/Vol] Ordered By: PROVIDER TEMP on 25-01-2145ULK (Bld) [#/Vol]3.14 10*6/uL3.60-5.00 [facility] Cancer Centererum or plasma alanine aminotransferase measurement without P-5'-P (enzymatic activiOrdered By: PROVIDER TEMP on 63-84-6158GVB No additional P-5'-P [Catalytic activity/Vol]10 U/Q73-46BhuzrxtarOhioHealth Arthur G.H. Bing, MD, Cancer Centererum or plasma albumin/globulin mass ratioOrdered By: PROVIDER TEMP on 05-85-8058Rycucxr/Globulin [Mass ratio]0.8 {ratio}[facility] Cancer Centererum or plasma alkaline phosphatase measurement (enzymatic activity/volume)Ordered By: PROVIDER TEMP on 80-16-0054ZPH [Catalytic activity/Vol]77 U/G49-74KsshszmxjOhioHealth Arthur G.H. Bing, MD, Cancer Centererum or plasma anion gap determinationOrdered By: PROVIDER TEMP on 79-07-1374Hqvhz gap [Moles/Vol] 15.1 mmol/L6.0-15.0[facility] Cancer Centererum or plasma aspartate aminotransferase measurement (enzymatic activity/volume)Ordered By: PROVIDER TEMP on 09-42-3463PZC [Catalytic activity/Vol]20 U/W82-96WpumprkbyOhioHealth Arthur G.H. Bing, MD, Cancer Centererum or plasma calcium measurement (mass/volume)Ordered By: PROVIDER TEMP on 48-46-8123Hjqjnaw [Mass/Vol]9.3 mg/dL8.2-10.2FPremier Health Miami Valley Hospital Northerum or plasma chloride measurement (moles/volume)Ordered By: PROVIDER TEMP on 84-81-8771Jqpllhnp [Moles/Vol]107 mmol/S97-857PoctfbwvnOhioHealth Arthur G.H. Bing, MD, Cancer Centererum or plasma glucose measurement (mass/volume)Ordered By: PROVIDER TEMP on 24-27-3478Ubglpta [Mass/Vol]72 mg/wG26-035RhyqwhrzrThe Christ HospitalComment on above:ADA recommended reference rangeRandom Glucose Reference Range is dependent on time and content of last meal. Glucose of more than 200 mg/dL in a nonstressed, ambulatory subject supports the diagnosisof Diabetes Mellitus.Serum or plasma potassium measurement (moles/volume)Ordered By: PROVIDER TEMP on 55-56-6634Xnlktujch [Moles/Vol]3.6 mmol/L3.5-5.1FPremier Health Miami Valley Hospital Northerum or plasma sodium measurement (moles/volume)Ordered By: PROVIDER TEMP on 50-56-5175Gimnlv [Moles/Vol]137 mmol/V555-198SkgsjrummOhioHealth Arthur G.H. Bing, MD, Cancer Centererum or plasma total bilirubin measurement (mass/volume)Ordered By: PROVIDER TEMP on 29-14-7528Lkepdvaet [Mass/Vol]0.7 mg/dL0.3-1.2FPremier Health Miami Valley Hospital Northerum or plasma total carbon dioxide measurement (moles/volume)Ordered By: PROVIDER TEMP on 00-24-6251QS8 [Moles/Vol]18.5 mmol/L22.0-30.0[facility] Serum or plasma urea nitrogen measurement (mass/volume)Ordered By: PROVIDER TEMP on 05-52-8504Okfj nitrogen [Mass/Vol]3 mg/dL9-23[facility], Cancer Centerpecific gravity Auto test strip (U) [Rel density]Ordered By: Michael Cerda on 41-98-4557Qgmokgds gravity (U) [Rel density]1.0161.001-1.030[facility] MD, Cancer Centerquamous epithelial cells detection in urine sediment by light microscopyOrdered By: Michael Cerda on 51-47-8597Hueihnccaf cells.squamous LM Ql (Urine sed)10-19 [HPF]0-2FThe Jewish HospitalTroponin I.cardiac [Mass/volume] in Serum or Plasma by High sensitivity methodOrdered By: Michael Cerda on 29-57-0998Jbckzucv I.cardiac High sensitivity method [Mass/Vol] 6 pg/mL0-15The [facility] HospitalUrine bacteria detection by automated methodOrdered By: Michael Cerda on 20-10-6573Bckxcwhb Auto Ql (U)1+None SeenThe Christ HospitalUrine clarity by refractometry automated Ordered By: Michael Cerda on 13-54-6616Juwkipp Refractometry automated (U)Turbid ClearThe Christ HospitalUrine culture routineOrdered By: Michael Cerda on 30-61-0502Zsfxyhez identified Cx Nom (U)2 DaysThe Christ HospitalUrine glucose measurement by automated test strip (mass/volume)Ordered By: Michael Cerda on 44-18-3615Okclojg Auto test strip (U) [Mass/Vol]Normal mg/dL NormalThe Christ HospitalUrine hemoglobin detection by automated test stripOrdered By: Michael Cerda on 19-79-5830Jjlysbedgj Auto test strip Ql (U)TraceNegativeThe Christ HospitalUrine leukocyte esterase detection by automated test stripOrdered By: Michael Cerda on 47-00-0347Wrnloolxn esterase Auto test strip Ql (U)4+NegativeThe Christ Hospital Urobilinogen Auto test strip (U) [Mass/Vol]Ordered By: Michael Cerda on 49-97-6911Jeleajvmsyko (U) [Mass/Vol]Normal mg/dLNormalThe Christ HospitalWBC Auto (Bld) [#/Vol]Ordered By: CIERA CARABALLO on 64-53-1465ULT (Bld) [#/Vol]10.5 10*3/uL3.8-11.6FThe Jewish HospitalYeast detection in urine sediment by light microscopyOrdered By: Michael Cerda on 85-72-1643Zcmzv LM Ql (Urine sed)None seen [HPF]None SeenThe Christ HospitalpH Auto test strip (U)Ordered By: Michael Cerda on 48-32-2218iA (U) 6.0 [pH]5.0-9.0The [facility] HospitalGLUCOSE BLOODon 04-28-2022 Glucose [Mass/Vol]83 mg/pPAglonb00-902VnnUniversity Hospitals Geauga Medical CenterComment on above: Performed By: #### GLUC, LIPID #### [facility] [address] [place] [address] Dr. Kinjal RiversLIPID PROFILEon 56-33-9784CJZC-HDL RATIO NORMSFairfield Medical Center on above:Result Comment: 3.3 - 4.4 LOW RISK 4.4 - 7.1 AVERAGE RISK 7.1 - 11.0 MODERATE RISK >11.0 HIGH RISKPerformed By: #### GLUC, LIPID #### [facility] [address] [place] [address] Dr. Kinjal RiversCholesterol [Mass/Vol]232 mg/dLCritically high<=200[facility] on above:Performed By: #### GLUC, LIPID #### [facility] [address] [place] [address] Dr. Kinjal RiversCholesterol in HDL [Mass/Vol]92 mg/dLCritically rgkx52-51KykParkview Health Montpelier Hospital on above:Performed By: #### GLUC, LIPID #### [facility] [address] [place] [address] Dr. Kinjal RiversCholesterol in LDL [Mass/Vol]115.2 mg/dLTrinity Health System Twin City [facility] on above:Performed By: #### GLUC, LIPID #### [facility] [address] [place] [address] Dr. Kinjal Amayaesterelizabeth.total/Cholesterol in HDL [Mass ratio]2.5 {ratio} NormalParkview Health Montpelier Hospital on above:Performed By: #### GLUC, LIPID #### [facility] [address] [place] [address] Dr. Kinjal Huitron NORMAL> or = 60 mg/dl - LOW CARDIOVASCULAR RISK <40 mg/dl - HIGH CARDIOVASCULAR RISKTrinity Health System Twin City Medical Center on above:Performed By: #### GLUC, LIPID #### [facility] [address] [place] [address] Dr. Kinjal RiversLDL CALC NORMALSEE Magruder HospitalCommarshfield medical center on above:Result Comment: <100 mg/dl OPTIMAL 100 - 129 mg/dl NEAR OR ABOVE OPTIMAL 130 - 159 mg/dl BORDERLINE HIGH 160 - 189 mg/dl HIGH >190 mg/dl VERY HIGH Performed By: #### GLUC, LIPID #### [facility] [address] [address] [address] Kinjal RiversTriglyceride [Mass/Vol]124 mg/dLNormal<=150[facility] Comment on above:Performed By: #### GLUC, LIPID #### [facility] [address] [address] [address] Kinjal RiversVLDL CALC24.8 mg/dLNormalThSt. Charles HospitalComment on above: Performed By: #### GLUC, LIPID #### [facility] [address] [address] [address] Layton ChangEchocardiogramon 31-85-9109XtjjpodanvwylcchDfw[address], [address] [address] TRANSTHORACIC ECHOCARDIOGRAM REPORT Patient Name: MARICARMEN Murrieta Jocelin Physician: [id number] Tracee ANDERSON MD Study Date: 02/13/2022 Referring [id number] RITA OLIVIA Physician: MRN/PID: [id number] PCP: Viktor Bradford Accession/Order#: [id number] Department [facility] Location: Date of : 1980 Fellow: Gender: F Nurse: Admit Date: Senior Internal Auditor: Georgia Grajeda [facility], [facility] Height: 167.64 cm CC Report to: Weight: 102.97 kg Study Type: Echocardiogram BSA: 2.11 m2 Blood Pressure: 114 /70 mmHg Diagnosis/ICD: I47.1-Supraventricular tachycardia; R06.02-Shortness of breath; I49.5-Sick sinus syndrome Indication: Abnormal EKG-Complete Heart Block, Pacemaker, History of Syncope, Obesity, Seizure Disorder, Pt is 13 weeks Procedure/CPT: Echo Complete w Full Doppler-[id number] Study Detail: The following Echo studies were [...] normal. There is no indication of pulmonic valveregurgitation. Pericardium: There is no pericardial effusion noted. [...] 0.8 m/s (0.6-0.9m/s) PV Max P.9 mmHg [id number] Tracee Moore MD Electronically signed on 02/13/2022 at 5:36:08 PM Final NormalChildren's Hospital Colorado North CampusEchocardiographyPlease click on the link to view the study imagesNormal[address] Work Phone: Falls Screening (Age 18+)on 08-30-5673Bzku risk assessmenta) No falls within the last year[address] Work Phone: Urine culture routineOrdered By: Raymond Oconnor on 96-62-7069Stuyqnht identified Cx Nom (U)2 DaysThe Christ Hospital Albumin [Mass/volume] in Serum or PlasmaOrdered By: Raymond Oconnor on 01-20-2022 Albumin [Mass/Vol]3.4 g/dL3.2-5.5FThe Jewish HospitalAutomated erythrocytes count in urine sediment (number/area)Ordered By: Raymond Oconnor on 41-56-0448EJL Auto (Urine sed) [#/Area]3-4 [HPF]0-4FThe Jewish HospitalAutomated leukocytes count in urine sediment (number/area)Ordered By: Raymond Oconnor on 22-47-9772CNK Auto (Urine sed) [#/Area]20-49 [HPF]0-4FThe Jewish HospitalAutomated urine sediment calcium oxalate crystal count by microscopy (number/high powOrdered By: Raymond Oconnor on 40-06-9624Ovnhkso oxalate crystals LM.HPF (Urine sed) [#/Area]4+ [HPF]The Christ HospitalBasophils Auto (Bld) [#/Vol]Ordered By: Raymond Oconnor on 01-20-2022 Basophils (Bld) [#/Vol]0.0 10*3/uL0.0-0.2FThe [facility] Hospital Basophils/100 WBC Auto (Bld)Ordered By: Raymond Oconnor on 50-43-6523Nqervwqxq/100 WBC (Bld)0.4 %.The Christ HospitalBilirubin Auto test strip Ql (U) Ordered By: Raymond Oconnor on 91-00-8713Iasjmlruz Ql (U)NegativeNegativeThe Christ HospitalBlood hemoglobin measurement (mass/volume)Ordered By: Raymond Oconnor on 02-12-7474Hsjmchlfpq (Bld) [Mass/Vol]10.6 g/dL11.8-15.4FThe Jewish HospitalBlood leukocytes automated count (number/volume)Ordered By: Raymond Oconnor on 93-65-9911NKN (Bld) [#/Vol]6.8 10*3/uL4.5-11.0The [facility] HospitalCreatinine and Glomerular filtration rate.predicted panel (S/P/Bld)Ordered By: Raymond Oconnor on 11-33-6866Wfrjfllcos [Mass/Vol]0.62 mg/dL 0.44-1.03The [facility] HospitalEosinophils Auto (Bld) [#/Vol]Ordered By: Raymond Oconnor on 99-60-0880Djsesohdexu (Bld) [#/Vol]0.1 10*3/uL0.0-0.45 [facility] HospitalEosinophils/100 WBC Auto (Bld)Ordered By: Raymond Oconnor on 56-78-2667Qyvozbitmzp/100 WBC (Bld)1.5 %.The [facility] HospitalErythrocyte distribution width Auto (RBC) [Ratio]Ordered By: Raymond Oconnor on 68-29-8077Ajgejepuomt distribution width (RBC) [Ratio]18.2 % 11.9-15.3FThe Jewish HospitalEstimated glomerular filtration rate (GFR) non- AmericanOrdered By: Raymond Oconnor on 18-31-2101CHV/1.73 sq M.predicted among non-blacks MDRD (S/P/Bld) [Vol rate/Area]> 60 mL/MinThe Christ HospitalGlobulin Calc (S) [Mass/Vol]Ordered By: Raymond Oconnor on 10-66-9912Lhffrnxw (S) [Mass/Vol]3.1 g/dLThe Christ Hospital Hematocrit Auto (Bld) [Volume fraction]Ordered By: Raymond Oconnor on 01-20-2022 Hematocrit (Bld) [Volume fraction]33.6 %34.0-46.4FThe Jewish HospitalKetones Auto test strip (U) [Mass/Vol]Ordered By: Raymond Oconnor on 39-80-6147Zrdqaty (U) [Mass/Vol]NegativeNegativeThe Christ HospitalLaboratory - Hematology and Cell countsOrdered By: Raymond Oconnor on 65-06-9935Oosqtfvmg RBC/100 WBC (Bld) [Ratio]0.0 %0-0.5FThe Jewish HospitalLaboratory - UrinalysisOrdered By: Raymond Oconnor on 01-20-2022 Hyaline casts LM Ql (Urine sed)0-8 [LPF]0-8[facility] Lymphocytes Auto (Bld) [#/Vol]Ordered By: Raymond Oconnor on 66-51-5105Sydsmcsolhm (Bld) [#/Vol]1.3 10*3/uL1.00-4.8The Christ HospitalLymphocytes/100 WBC Auto (Bld)Ordered By: Raymond Oconnor on 02-03-7266Mofwofxmpmw/100 WBC (Bld) 19.1 %.The Christ HospitalMCH Auto (RBC) [Entitic mass]Ordered By: Raymond Oconnor on 10-75-3641IDX (RBC) [Entitic mass]26.9 pg24.7-34.3FThe Jewish HospitalMCHC Auto (RBC) [Mass/Vol]Ordered By: Raymond Oconnor on 84-67-1063QXLN (RBC) [Mass/Vol]31.7 g/dL32.0-35.0The [facility] HospitalMCV Auto (RBC) [Entitic vol]Ordered By: Raymond Oconnor on 19-41-6132LHZ (RBC) [Entitic vol]84.8 wE51-216JwigxlybnThe Christ HospitalMonocytes Auto (Bld) [#/Vol]Ordered By: Raymond Oconnor on 71-55-3248Ssdxwyzyz (Bld) [#/Vol]0.4 10*3/uL0.0-0.8The [facility] HospitalMonocytes/100 WBC Auto (Bld) Ordered By: Raymond Oconnor on 74-56-6584Qwkfifrop/100 WBC (Bld)6.6 %.The Christ HospitalNeutrophils Auto (Bld) [#/Vol]Ordered By: Raymond Oconnor on 54-34-6088Tuzuotsbgft (Bld) [#/Vol]4.9 10*3/uL1.8-7.7FThe Jewish HospitalNeutrophils/100 WBC Auto (Bld)Ordered By: Raymond Oconnor on 01-20-2022 Neutrophils/100 WBC (Bld)72.4 %.[facility] HospitalNo Panel InformationOrdered By: Raymond Oconnor on 17-80-0530Uppmxgxzz GFR ()> 60 mL/MinThe Christ HospitalComment on above:GFR estimated reference range: According to KDOQI guidelines, <60 ml/min/1.73m2 is sufficient todiagnose a patient with chronic kidney disease.Pharmacy Creatinine Clearance (Dvqd895.20The Christ HospitalPlatelet mean volume Auto (Bld) [Entitic vol]Ordered By: Raymond Oconnor on 21-07-9358Bztwmpvr mean volume (Bld) [Entitic vol]8.1 fL6.3-10.7FThe Jewish HospitalPlatelets Auto (Bld) [#/Vol]Ordered By: Raymond Oconnor on 19-02-1777Dsaesnscr (Bld) [#/Vol]214 10*3/kZ750-887JuqplqsimThe Christ HospitalProtein Auto test strip (U) [Mass/Vol]Ordered By: Raymond Oconnor on 10-76-6742Tthwtjb (U) [Mass/Vol]Negative NegativeThe Christ HospitalProtein [Mass/volume] in Serum or PlasmaOrdered By: Raymond Oconnor on 98-14-6350Didrwzg [Mass/Vol]6.5 g/dL6.1-7.9 [facility] HospitalRBC Auto (Bld) [#/Vol]Ordered By: Raymond Oconnor on 51-73-9406ZMJ (Bld) [#/Vol]3.95 10*6/uL3.60-5.00[facility] Cancer Centererum or plasma alanine aminotransferase measurement without P-5'-P (enzymatic activiOrdered By: Raymond Oconnor on 17-68-8252PYR No additional P-5'-P [Catalytic activity/Vol]10 U/A16-41EqafrssohOhioHealth Arthur G.H. Bing, MD, Cancer Centererum or plasma albumin/globulin mass ratioOrdered By: Raymond Oconnor on 01-20-2022 Albumin/Globulin [Mass ratio]1.1 {ratio}[facility] Cancer Centererum or plasma alkaline phosphatase measurement (enzymatic activity/volume)Ordered By: Raymond Oconnor on 58-10-0036ABC [Catalytic activity/Vol]51 U/V45-42EhedexvrhOhioHealth Arthur G.H. Bing, MD, Cancer Centererum or plasma aspartate aminotransferase measurement (enzymatic activity/volume)Ordered By: Raymond Oconnor on 88-72-0502IID [Catalytic activity/Vol]16 U/P12-54IdgitwqjrOhioHealth Arthur G.H. Bing, MD, Cancer Centererum or plasma calcium measurement (mass/volume)Ordered By: Raymond Oconnor on 06-74-1073Nyidgbj [Mass/Vol]9.4 mg/dL8.2-10.2FPremier Health Miami Valley Hospital Northerum or plasma chloride measurement (moles/volume)Ordered By: Raymond Oconnor on 01-20-2022 Chloride [Moles/Vol]103 mmol/K15-419AhzvjpmcsOhioHealth Arthur G.H. Bing, MD, Cancer Centererum or plasma glucose measurement (mass/volume)Ordered By: Raymond Oconnor on 01-20-2022 Glucose [Mass/Vol]82 mg/bF08-377HsjqqumxaThe Christ HospitalComment on above:ADA recommended reference range Random Glucose Reference Range is dependent on time and content of last meal. Glucose of more than 200 mg/dL in a nonstressed, ambulatory subject supports the diagnosis of Diabetes Mellitus.Serum or plasma potassium measurement (moles/volume)Ordered By: Raymond Oconnor on 23-40-0978Avpcabilt [Moles/Vol]4.0 mmol/L3.5-5.1FPremier Health Miami Valley Hospital Northerum or plasma sodium measurement (moles/volume)Ordered By: Raymond Oconnor on 51-35-9925Mjfapr [Moles/Vol]134 mmol/K981-085SngexdvdbOhioHealth Arthur G.H. Bing, MD, Cancer Centererum or plasma total bilirubin measurement (mass/volume)Ordered By: Raymond Oconnor on 09-99-0503Dhjupniyj [Mass/Vol]0.7 mg/dL0.3-1.2FPremier Health Miami Valley Hospital Northerum or plasma total carbon dioxide measurement (moles/volume)Ordered By: Raymond Oconnor on 01-20-2022 CO2 [Moles/Vol]19.6 mmol/L22.0-30.0[facility], Cancer Centererum or plasma urea nitrogen measurement (mass/volume)Ordered By: Raymond Oconnor on 52-59-7202Rpbu nitrogen [Mass/Vol]8 mg/dL9-23[facility] Squamous epithelial cells detection in urine sediment by light microscopyOrdered By: Raymond Oconnor on 50-42-3314Bmtiflghzb cells.squamous LM Ql (Urine sed)0-1 [HPF]0-2FThe Jewish HospitalUrine appearanceOrdered By: Raymond Oconnor on 72-83-6824Rgbdtsbiuz (U)ClearCleLake County [facility] Urine bacteria detection by automated methodOrdered By: Raymond Oconnor on 76-05-7592Qdutrrgi Auto Ql (U)None seenNone SeenThe Christ HospitalUrine colorOrdered By: Raymond Oconnor on 72-75-8303Gqaps (U)YellowYelUniversity Hospitals Cleveland Medical CenterUrine glucose measurement by automated test strip (mass/volume)Ordered By: Raymond Oconnor on 80-26-3820Rqhhgga Auto test strip (U) [Mass/Vol]Normal mg/dLNormalThe Christ HospitalUrine hemoglobin detection by automated test stripOrdered By: Raymond Oconnor on 10-68-8334Bpecphtjbo Auto test strip Ql (U)NegativeNegativeThe Christ HospitalUrine leukocyte esterase detection by automated test stripOrdered By: Raymond Oconnor on 98-19-9113Jvrvoggcb esterase Auto test strip Ql (U)2+ NegativeThe Christ HospitalUrine nitrite detection by automated test stripOrdered By: Raymond Oconnor on 27-59-2495Wnsqggg Auto test strip Ql (U) NegativeNegativeThe Christ HospitalUrine sediment crystal identification by light microscopyOrdered By: Raymond Oconnor on 16-18-0895Tbiokmxf LM Nom (Urine sed)None seen [HPF][facility] HospitalUrobilinogen Auto test strip (U) [Mass/Vol]Ordered By: Raymond Oconnor on 30-89-3555Lhiplmxpfqup (U) [Mass/Vol]Normal mg/dLNormalThe Christ HospitalpH Auto test strip (U)Ordered By: Raymond Oconnor on 17-99-5872dQ (U)1.030 [pH]1.001-1.030 [facility] HospitalpH (U)6.0 [pH]5.0-9.0[facility] HospitalTobacco Screening.on 71-01-9181Qayt risk assessmenta) No falls within the last yearState [facility] health facility [place]ong[place] DO Work Phone: Tobacco use status CPHSb) NoMPMerged With [facility] DO Work Phone: Tobacco Screening.Yes-[facility] [address] DO Work Phone: Serum or plasma beta choriogonadotropin measurement (units/volume)Ordered By: Eduardo Swain on 68-81-3446MSY.beta subunit Ea3155.00 m[IU]/mLThe Christ HospitalComment on above:Approximate Approximate hCG Gestational Age Range (mIU/ml) (weeks) 0.2-1 5-50 1-2 50-500 2-3 100-5,000 3-4 500-10,000 4-5 1,000-50,000 5-6 10,000-100,000 6-8 15,000-200,000 8-12 10,000-100,000 Cholesterol [Mass/volume] in Serum or PlasmaOrdered By: Eduardo Swain on 46-71-2255Bvzmdouktvr [Mass/Vol]190 mg/pD233-027RoshyrmekThe Christ HospitalComment on above:Chol less than 200 mg/dl low risk Chol 201-239 mg/dl borderline risk Chol 240 mg/dl and greater high riskCholesterol in LDL Calc [Mass/Vol]Ordered By: Eduardo Swain on 78-67-2570Mlupbfrxqxp in LDL [Mass/Vol]103 mg/dL0-100 The [facility] HospitalComment on above:LDL ATP III CLASSIFICATION LDL less than 100 mg/dL Optimal LDL 100-129 mg/dL Near or above optimal LDL 130-159 mg/dL Borderline high LDL 160-189 mg/dL High LDL greater than 189 mg/dL Very highCholesterol in VLDL Calc [Mass/Vol]Ordered By: Eduardo Swain on 61-77-0451Dhvgwhqozfn in VLDL [Mass/Vol]9 mg/dLThe Christ HospitalNo Panel InformationOrdered By: Eduardo Swain on 73-25-585020497081-Vtfvlww Vitamin D Total40.6 ng/zQ20-472PplgkymxlThe Christ HospitalComment on above:VITAMIN D STATUS 25(OH)VITAMIN D RANGE (ng/mL) Deficient <20 Insufficient 20 to <30 Sufficient 30 to 100 Reference: Franklyn MF,Benjamin NC, Andreina MARQUEZ, et al. Evaluation,treatment, and prevention of vitamin D deficiency; an Endocrine Society clinical practice guideline. JCEM. 2010; 96(7):1911-30.Serum or plasma high density lipoprotein (HDL) cholesterol measurementOrdered By: Eduardo Swain on 25-95-2016Hyzuiqewgnn in HDL [Mass/Vol]78 mg/rF90-99TuxpaujlcThe Christ HospitalComment on above:HDL CHOL ATP-III CLASSIFICATION Cardiovascular Risk HDL > or equal to 60 mg/dL LOW HDL < 40 mg/dL HIGHSerum or plasma total cholesterol/high density lipoprotein (HDL) cholesterol mass ratOrdered By: Eduardo Swain on 12-11-2021 Cholesterol.total/Cholesterol in HDL [Mass ratio]2.4 {ratio}<5.0[facility] DL <= 0.005 mIU/L QnOrdered By: Eduardo Swain on 11-21-1812ZUW Qn2.40 m[IU]/L0.45-5.33[facility] Triglyceride [Mass/volume] in Serum or PlasmaOrdered By: Eduardo Swain on 54-08-2644Zjebenszfcsl [Mass/Vol]47 mg/hB16-212BrdpudkgjThe Christ Hospital Comment on above:TRIG ATP III CLASSIFICATION TRIG less than 150 mg/dL Normal TRIG 150-199 mg/dL Borderline high TRIG 200-500 mg/dL High TRIG greater than 500 mg/dL Very high Standard traceable to the Center for Disease Conrtrol and Prevention (CDC) test method.Serum or plasma beta choriogonadotropin measurement (units/volume)Ordered By: Eduardo Swain on 57-50-6289HVI.beta subunit Qn315.21 m[IU]/mLThe Christ HospitalComment on above:Approximate Approximate hCG Gestational Age Range (mIU/ml) (weeks) 0.2-1 5-50 1-2 50-500 2-3 100-5,000 3-4 500-10,000 4-5 1,000-50,000 5-6 10,000-100,000 6-8 15,000-200,000 8-12 10,000-100,000 Urine culture routineOrdered By: Cornell Mcnair on 71-78-0842Zjxmjvfl identified Cx Nom (U)Strep. agalactiae Grp BFThe Jewish HospitalAmphetamine Screen Ql (U)Ordered By: Cornell Mcnair on 53-83-6848Zbmbvxqbbody Ql (U)Negative NegativeThe Christ HospitalAutomated erythrocytes count in urine sediment (number/area)Ordered By: Cornell Mcnair on 82-66-7493FTI Auto (Urine sed) [#/Area]10-19 [HPF]0-4FThe Jewish HospitalAutomated leukocytes count in urine sediment (number/area)Ordered By: Cornell Mcnair on 27-16-2222QZR Auto (Urine sed) [#/Area]50-100 [HPF]0-4FThe [facility] Hospital Automated urine hyaline casts count (number/volume)Ordered By: Cornell Mcnair on 97-10-5572Cljjzlo casts Auto (U) [#/Vol]0-1 [LPF]0-1FThe Jewish HospitalAutomated urine sediment calcium oxalate crystal count by microscopy (number/high powOrdered By: Cornell Mcnair on 65-27-6698Eeapfol oxalate crystals LM.HPF (Urine sed) [#/Area]3+ [HPF][facility] HospitalBarbiturates [Presence] in UrineOrdered By: Cornell Mcnair on 58-37-2973Lmugzcjgfgwr Ql (U) NegativeNegativeThe Christ HospitalBasophils Auto (Bld) [#/Vol] Ordered By: Cornell Mcnair on 77-21-7920Qxwndylip (Bld) [#/Vol]0.0 10*3/uL0.0-0.2 [facility] HospitalBasophils/100 WBC Auto (Bld)Ordered By: Cornell Mcnair on 27-87-5357Eggzemngi/100 WBC (Bld)0.6 %.[facility] HospitalBenzodiazepines [Presence] in UrineOrdered By: Cornell Mcnair on 12-08-2021 Benzodiazepines Ql (U)NegativeNegativeThe Christ HospitalBilirubin Test strip Ql (U)Ordered By: Cornell Mcnair on 13-38-5627Ijqpwmdqc Ql (U)Negative NegativeThe Christ HospitalBlood hemoglobin measurement (mass/volume)Ordered By: Cornell Mcnair on 89-68-8533Hqutrvesfm (Bld) [Mass/Vol]9.6 g/dL11.8-15.4FThe Jewish HospitalBlood leukocytes automated count (number/volume)Ordered By: Cornell Mcnair on 98-65-3892YZE (Bld) [#/Vol]6.9 10*3/uL 4.5-11.0[facility] HospitalBody fluid albumin measurement (mass/volume)Ordered By: Cornell Mcnair on 68-97-3983Lvrbauy (Body fld) [Mass/Vol] 3.4 g/dL3.2-5.5FThe Jewish HospitalCOVID-19 SOFIAOrdered By: Cornell Mcnair on 99-47-9283ZYRW-CoV+SARS-CoV-2 (COVID-19) Ag IA.rapid Ql (Resp)Negative NegativeThe Christ HospitalComment on above:This is a duplicate Roshni SARS Antigen (DIEUDONNE) result to be used for statistical tracking purpose only .Cannabinoids [Presence] in Urine by Screen methodOrdered By: Cornell Mcnair on 32-71-2984Cpnfgbeyiovm Screen Ql (U)NegativeNegativeThe Christ HospitalComment on above:These are unconfirmed results and should not be used for legal purposes. Drug Cut-Off Concentration: AMPH 1000 ng/mL BOO 200 ng/mL HELGA 200 ng/mL COCM 300 ng/mL OP 300 ng/mL PCP 25 ng/mL THC 20 ng/mLCasts typing in urine sediment by light microscopyOrdered By: Cornell Mcnair on 77-00-1361Nuoiw LM Nom (Urine sed)None seen [LPF]None SeenThe Christ HospitalColor Auto (U)Ordered By: Cornell Mcnair on 55-34-7155Kxgvs (U)YellowYellowThe Christ HospitalCreatinine and Glomerular filtration rate.predicted panel (S/P/Bld)Ordered By: Cornell Mcnair on 12-08-2021 Creatinine [Mass/Vol]0.78 mg/dL0.44-1.03[facility] Eosinophils Auto (Bld) [#/Vol]Ordered By: Cornell Mcnair on 98-57-9834Lufetyyvfon (Bld) [#/Vol]0.2 10*3/uL0.0-0.45The [facility] HospitalEosinophils/100 WBC Auto (Bld)Ordered By: Cornell Mcnair on 31-44-8685Hmscaadzbbg/100 WBC (Bld)2.6 %.[facility] HospitalErythrocyte distribution width Auto (RBC) [Ratio]Ordered By: Cornell Mcnair on 83-51-3347Tmohrlolbpf distribution width (RBC) [Ratio]15.5 %11.9-15.3FThe Jewish HospitalEstimated glomerular filtration rate (GFR) non- AmericanOrdered By: Cornell Mcnair on 12-08-2021 GFR/1.73 sq M.predicted among non-blacks MDRD (S/P/Bld) [Vol rate/Area]> 60 mL/MinThe Christ HospitalGlobulin Calc (S) [Mass/Vol]Ordered By: Cornell Mcnair on 02-34-6926Utogkhmd (S) [Mass/Vol]3.1 g/dLThe Christ HospitalHCG ( test) IA.rapid Ql (U)Ordered By: Cornell Mcnair on 30-13-2494YML ( test) Ql (U)PositiveThe Christ Hospital Hematocrit Auto (Bld) [Volume fraction]Ordered By: Cornell Mcnair on 12-08-2021 Hematocrit (Bld) [Volume fraction]30.1 %34.0-46.4FThe Jewish HospitalKetones Auto test strip (U) [Mass/Vol]Ordered By: Cornell Mcnair on 12-08-2021 Ketones (U) [Mass/Vol]TraceNegativeThe Christ HospitalLaboratory - Drug toxicologyOrdered By: Cornell Mcnair on 67-04-2435Hffzuag Ql (U)Negative NegativeThe Christ HospitalLaboratory - Hematology and Cell counts Ordered By: Cornell Mcnair on 57-97-1096Nuasqdfip RBC/100 WBC (Bld) [Ratio]0.0 % 0-0.5FThe Jewish HospitalLymphocytes Auto (Bld) [#/Vol]Ordered By: Cornell Mcnair on 11-48-4008Bfozjmywoea (Bld) [#/Vol]1.5 10*3/uL1.00-4.8The [facility] HospitalLymphocytes/100 WBC Auto (Bld)Ordered By: Cornell Mcnair on 20-13-5766Smkosdivjub/100 WBC (Bld)22.3 %.[facility]H Auto (RBC) [Entitic mass]Ordered By: Cornell Mcnair on 99-46-1752QXY (RBC) [Entitic mass]26.3 pg24.7-34.3FThe Jewish HospitalMCHC Auto (RBC) [Mass/Vol] Ordered By: Cornell Mcnair on 47-64-2854ORNC (RBC) [Mass/Vol]32.0 g/dL32.0-35.0 [facility] HospitalMCV Auto (RBC) [Entitic vol]Ordered By: Cornell Mcnair on 22-13-6053KWA (RBC) [Entitic vol]82.4 oR61-391CrkoovqozThe Christ HospitalMonocytes Auto (Bld) [#/Vol]Ordered By: Cornell Mcnair on 12-08-2021 Monocytes (Bld) [#/Vol]0.4 10*3/uL0.0-0.8[facility] Monocytes/100 WBC Auto (Bld)Ordered By: Cornell Mcnair on 33-00-3239Xmzntljaj/100 WBC (Bld)6.5 %.[facility] HospitalMucus LM Ql (Urine sed)Ordered By: Cornell Mcnair on 93-71-3234Dwtre Ql (Urine sed)2+ [LPF][facility] HospitalNeutrophils Auto (Bld) [#/Vol]Ordered By: Cornell Mcnair on 12-08-2021 Neutrophils (Bld) [#/Vol]4.7 10*3/uL1.8-7.7FThe Jewish Hospital Neutrophils/100 WBC Auto (Bld)Ordered By: Cornell Mcnair on 12-08-2021 Neutrophils/100 WBC (Bld)68.0 %.The [facility] HospitalNitrite Test strip Ql (U)Ordered By: Cornell Mcnair on 70-79-3761Jyifvrd Ql (U)NegativeNegative [facility] HospitalNo Panel InformationOrdered By: Cornell Mcnair on 27-73-6881Gbepqcohg GFR ()> 60 mL/MinThe Christ HospitalComment on above:GFR estimated reference range: According to KDOQI guidelines, <60 ml/min/1.73m2 is sufficient todiagnose a patient with chronic kidney disease.Pharmacy Creatinine Clearance (Svta398.38[facility] MD, Cancer CenterARS Antigen (LFIA)The [facility] HospitalPhencyclidine Screen Ql (U)Ordered By: Cornell Mcnair on 90-50-1852Yqlpaddffjhbe Ql (U)Negative NegativeThe Christ HospitalPlatelet mean volume Auto (Bld) [Entitic vol]Ordered By: Cornell Mcnair on 45-21-0955Yggesstt mean volume (Bld) [Entitic vol]7.2 fL6.3-10.7FThe Jewish HospitalPlatelets Auto (Bld) [#/Vol]Ordered By: Cornell Mcnair on 41-94-6318Bttgevzqq (Bld) [#/Vol]229 10*3/uL 150-450The [facility] HospitalProtein Auto test strip (U) [Mass/Vol] Ordered By: Cornell Mcnair on 89-46-6883Wpmkgom (U) [Mass/Vol]NegativeNegative [facility] HospitalProtein [Mass/volume] in Serum or PlasmaOrdered By: Cornell Mcnair on 04-57-4778Cqtmkik [Mass/Vol]6.5 g/dL6.1-7.9The [facility] HospitalRBC Auto (Bld) [#/Vol]Ordered By: Cornell Mcnair on 91-70-0266JRZ (Bld) [#/Vol]3.65 10*6/uL3.60-5.00[facility] MD, Cancer Centererum or plasma alanine aminotransferase measurement without P-5'-P (enzymatic activi Ordered By: Cornell Mcnair on 02-51-5410ZTY No additional P-5'-P [Catalytic activity/Vol]11 U/P37-77PngqxnnpnOhioHealth Arthur G.H. Bing, MD, Cancer Centererum or plasma albumin/globulin mass ratioOrdered By: Cornell Mcnair on 37-20-8113Wxkldzs/Globulin [Mass ratio]1.1 {ratio}[facility] Cancer Centererum or plasma alkaline phosphatase measurement (enzymatic activity/volume)Ordered By: Cornell Mcnair on 71-66-2910CSM [Catalytic activity/Vol]64 U/X82-10PsezoqstqOhioHealth Arthur G.H. Bing, MD, Cancer Centererum or plasma aspartate aminotransferase measurement (enzymatic activity/volume)Ordered By: Cornell Mcnair on 89-60-2157QBO [Catalytic activity/Vol] 22 U/L03-94KejlshvvbOhioHealth Arthur G.H. Bing, MD, Cancer Centererum or plasma calcium measurement (mass/volume)Ordered By: Cornell Mcnair on 99-46-8764Ogyeowa [Mass/Vol]8.9 mg/dL 8.2-10.2FPremier Health Miami Valley Hospital Northerum or plasma chloride measurement (moles/volume)Ordered By: Cornell Mcnair on 57-36-6873Oinefora [Moles/Vol]106 mmol/L 95-114[facility] Cancer Centererum or plasma ethanol measurement (mass/volume)Ordered By: Cornell Mcnair on 47-92-9976Bjdevth [Mass/Vol]mg/dL The [facility] HospitalEthanol [Mass/Vol]TNPThe Christ HospitalComment on above:Test not performedSerum or plasma glucose measurement (mass/volume)Ordered By: Cornell Mcnair on 55-61-3618Nbodfdq [Mass/Vol]86 mg/dL 70-100The [facility] HospitalComment on above:ADA recommended reference range Random Glucose Reference Range is dependent on time and content of last meal. Glucose of more than 200 mg/dL in a nonstressed, ambulatory subject supports the diagnosis of Diabetes Mellitus.Serum or plasma potassium measurement (moles/volume)Ordered By: Cornell Mcnair on 82-38-8952Xlfszdvqh [Moles/Vol]3.9 mmol/L3.5-5.1FPremier Health Miami Valley Hospital Northerum or plasma sodium measurement (moles/volume)Ordered By: Cornell Mcnair on 37-17-1853Yxaxaa [Moles/Vol]137 mmol/L 136-146Ohio[facility] Cancer Centererum or plasma total bilirubin measurement (mass/volume)Ordered By: Cornell Mcnair on 44-61-0512Hsarbtetc [Mass/Vol]0.4 mg/dL0.3-1.2FPremier Health Miami Valley Hospital Northerum or plasma total carbon dioxide measurement (moles/volume)Ordered By: Cornell Mcnair on 12-08-2021 CO2 [Moles/Vol]23.8 mmol/L22.0-30.0[facility] Cancer Centererum or plasma urea nitrogen measurement (mass/volume)Ordered By: Cornell Mcnair on 77-34-0746Rzkz nitrogen [Mass/Vol]9 mg/dL9-23[facility] Specific gravity Auto test strip (U) [Rel density]Ordered By: Cornell Mcnair on 83-11-5261Vocefaan gravity (U) [Rel density]1.0241.001-1.030[facility] MD, Cancer Centerquamous epithelial cells detection in urine sediment by light microscopyOrdered By: Cornell Mcnair on 63-58-8521Drwobnpdig cells.squamous LM Ql (Urine sed)10-19 [HPF]0-2FThe Jewish HospitalUrine bacteria detection by automated methodOrdered By: Cornell Mcnair on 94-97-2345Toskfnww Auto Ql (U)None seenNone SeenThe Christ HospitalUrine clarity by refractometry automatedOrdered By: Cornell Mcnair on 89-19-5658Kyjrkzs Refractometry automated (U)CloudyClearFThe Jewish HospitalUrine cocaine detectionOrdered By: Cornell Mcnair on 79-86-5492Dnnugdf Ql (U)NegativeNegative [facility] HospitalUrine glucose measurement by automated test strip (mass/volume)Ordered By: Cornell Mcnair on 81-77-3358Xweutri Auto test strip (U) [Mass/Vol]Normal mg/dLNormMarion HospitalUrine hemoglobin detection by automated test stripOrdered By: Cornell Mcnair on 12-08-2021 Hemoglobin Auto test strip Ql (U)NegativeNegativeThe Christ HospitalUrine leukocyte esterase detection by automated test stripOrdered By: Cornell Mcnair on 00-57-4544Xyvbtxuyf esterase Auto test strip Ql (U)3+NegativeThe Christ HospitalUrobilinogen Auto test strip (U) [Mass/Vol]Ordered By: Cornell Mcnair on 24-59-2903Rrmybkjaotdr (U) [Mass/Vol]Normal mg/dLNormMarion HospitalYeast detection in urine sediment by light microscopy Ordered By: Cornell Mcnair on 24-48-3598Abjwq LM Ql (Urine sed)1+ [HPF]None Seen [facility] HospitalpH Auto test strip (U)Ordered By: Cornell Mcnair on 59-04-0141tE (U)5.0 [pH]5.0-9.0The [facility] HospitalCNPNon 45-11-2890FHNPVearxerhr (GASTSP) MARICARMEN ANDERSON ([id number]) 1980 F T Date Time Provider Department 09/18/21 CLEMENTE JOHNSON GASTSP During your visit today, we recorded the following information about you: Uyen Dela Cruz 09/18/2021 9:54 AM Signed patient calling in with complaint of abdominal pain, swelling abdomen, dehydration and vomiting. Patient has not seen you since October 2020. Patient has been identified by name and birthdate.Yes Duration of symptoms: few days Person calling: self Call patient at: at home [phone] (home) [phone] (cell) Was an appointment scheduled: No Closing statement: Symptom Call: Thank you for calling [facility], your call is very important. A [...] was ruled out. She last saw Dr. Johnson in 10/2020. She last saw Dr. Gibson in 08/2018. She states she will go to a [facility] ER because local ER doesn't [...] Encounter Status:Closed by KATHI WATERMAN RN on 09/18/21[facility] CERVICAL SPINE WO IVCONon 95-49-8172QPC CERVICAL SPINE WO IVCON* * *Final Report* * * DATE OF [...] vertebrae with counting from the craniocervical junction. Prosecuting Attorney: [facility] Transcribe Date/Time: Nov 13 2020 2:41P Dictated by : KURT MALIN MD This examination was interpreted and the report reviewed and electronically signed by: DHRUV KINGSLEY MD on Nov 13 2020 3:33PM EST [id number] [facility]ID[facility]/W IVCONon 63-15-7764ZSO KIDNEY WO/W IVCON* * *Final Report* * * DATE OF EXAM: Nov 13 2020 3:11PM [facility] 0721 - MRI KIDNEY WO/W IVCON / [...] included: axial precontrast T1 weighted in- and zgh-nc-vnnbw, axial and coronal HASTE, axial DWI with [...] NO SUSPICIOUS OR ENHANCING RENAL LESIONS OTHERWISE. Prosecuting Attorney: LISA Transcribe Date/Time: Nov 13 2020 3:28P Dictated by : GAURAV RODRIGUEZ MD This examination was interpreted and the report reviewed and electronically signed by: NACHO BARONE DO on Nov 13 2020 7:26PM EST [id number]'S Hospital Of ColumbusXR CHEST 2V FRONTAL/LATon 72-56-9905DI CHEST 2V FRONTAL/LAT* * *Final Report* * * DATE OF [...] disease identified in the lungs or mediastinum. Prosecuting Attorney: LISA Transcribe Date/Time: Nov 13 2020 3:36P Dictated by : DESI MAHONEY MD This examination was interpreted and the report reviewed and electronically signed by: DESI MAHONEY MD on Nov 13 2020 3:38PM EST [id number]'S Hospital Of ColumbusBalexington [facility] Metabolic Panlon 94-30-6595Feazn gap [Moles/Vol]9 mmol/LNormal0-15[facility] HospitalCalcium [Mass/Vol]8.9 mg/dLNormal8.5-10.2[facility]inte HospitalChloride [Moles/Vol]112 mmol/GKmmd87-002Nlmkjujshlj HospitalCO2 [Moles/Vol]19 mmol/DXmw79-29Evmzduaxekr HospitalCreatinine [Mass/Vol]0.73 mg/dLNormal0.58-0.96Freeman Cancer InstituteeGFR- Amer.>60NormalSPutnam County Memorial HospitaleGFR-All Other Races>60Normal [facility] HospitalComment on above:Result Comment: eGFR (Estimated GFR) Units of measure: [...] the eGFR may not accurately reflect actual GFR.Glucose [Mass/Vol]89 mg/dLNormal 74-99[facility] HospitalPotassium [Moles/Vol]3.7 mmol/LNormal3.7-5.1Soutsaint monica's homee HospitalSodium [Moles/Vol]140 mmol/WTuolzo554-056Hwhqkhspkfk HospitalUrea nitrogen [Mass/Vol]21 mg/dLNormal7-21[facility] HospitalBlood Cultureon 33-61-0019Ryctoxem identified Cx Nom (Bld)Culture Result - No growth 5 days NormalFreeman Cancer InstituteComment on above:Performed By: #### BLCUL ####[facility] [address] [place], [place] [address]3278-35 4-5755Bacteria identified Cx Nom (Bld)Sp. Request/Comment: - 42.85CC Culture Result - No growth 5 daysNormSaint Luke's East HospitalComment on above: Performed By: #### BLCUL ####[facility] [address] [place], [place] [id number] 23-08-6955Skcguqzr nRBC<0.01Normal <0.01[facility] HospitalErythrocyte distribution width (RBC) [Ratio]16.8 %High 11.5-15.0[facility] HospitalHematocrit (Bld) [Volume fraction]28.9 %Low 36.0-46.0Southcranberry townshipe HospitalHemoglobin (Bld) [Mass/Vol]8.5 g/dLLow11.5-15.5 [facility] HospitalH26.6 hEQeskxe08.0-34.0[facility] HospitalHC (RBC) [Mass/Vol]29.4 g/dLLow30.5-36.0[facility] Memorial HospitalV (RBC) [Entitic vol]90.6 vIHwsjke78.0-100.0[facility] HospitalPlatelet mean volume (Bld) [Entitic vol] 11.6 fLNormal9.0-12.7[facility] HospitalPlatelets (Bld) [#/Vol]167 10*3/uL Odrkdu953-933Ppqfgibdbfi HospitalRBC (Bld) [#/Vol]3.19 10*6/uLLow3.90-5.20 [facility] Cancer InstituteWBC (Bld) [#/Vol]3.88 10*3/uLNormal3.70-11.00Freeman Cancer InstituteCNDSon 51-58-6896UCWZKFA ID: [id number] Author: Lucero Wheeler DO Service: General Surgery Author Type: Resident Type: Discharge Summary Filed: 11/12/2020 5:12 PM Note Text: Attestation signed by Clemente Johnson MD at 11/12/2020 6:11 PM Attending Note I evaluated the patient and personally participated in the edward components. I agree with the resident's findings and plan as documented and have discussed the case and management of the patient's care with the resident. Signature: Clemente Johnson Date: 11/12/2020 Time: 6:11 PM DISCHARGE SUMMARY PATIENT NAME: Maricarmen Anderson ADMISSION DATE: 11/09/2020 DISCHARGE DATE: 11/12/2020 Attending Physician: Clemente Johnson MD Code Status: Full Code Highest Readmission [...] fevers. 40 year old female presented to [facility] on 11/09/2020 with fevers and left flank [...] During Hospitalization: Treatment Team: Attending Provider: Clemente Johnson MD Consulting: Awais Gonzalez MD Infectious Disease: [...] as needed for Nausea/Vo (more content not included)...NormalSouthpointe [facility] 48-91-7005NFGCOUZ PROGHNO ID: [id number] Author: Awais Gonzalez MD Service: Infectious Disease Author Type: Physician Type: Consult Progress Note Filed: 11/12/2020 3:02 PM Note Text: INFECTIOUS DISEASE CONSULT PROGRESS NOTE PATIENT NAME: Maricarmen Anderson PRIMARY CARE PHYSICIAN: Viktor Bradford MD CONSULTING SERVICE: Awais Gonzalez MD ASSESSMENT AND RECOMMENDATIONS: positive blood culture with MRSE In one set . prob contaminant. . port infection possible but less likely. Gastro paresis. s/p Gastric by pass surgery. suggest ; d/c vanco check additional cultures ok to d/c from ID poinrt of view. discussed with Dr Johnson INTERVAL HPI : PATIENT EXAMINED. feels ok. [...] Right Chest 3 days SIGNATURE: Awais Gonzalez MDWashington County Memorial Hospital PROmeli 11-12-2020 [facility] [id number] Author: Wisam Carvajal RN Service: ? Author Type: Registered Nurse Type: Nursing Progress Note Filed: 11/12/2020 6:21 PM Note Text: Nursing Progress Note Patient Name: Maricarmen Anderson Patient Location: / Daily Note: 0920: Assessment complete, patient denies nausea, heat pad given for pain, will continue to monitor 1750: blood cultures collected and sent to lab 1820: Discharge instructions given This note was completed by: Wisam MiSaint Luke's East HospitalANA Panel 1on 03-14-5305CFB by EIA0.8 OD RatioNormalSoLakeland Regional HospitalComment on above: Result Comment: OD Ratio is interpreted as follows: Negative <1.0 Positive >=1.0Performed By: #### PREALB, TRANSF #### [facility] [address] [place] [address] TGE by EIA, QualNegativeNormalNegativeSPutnam County Memorial HospitalComment on above:Performed By: #### PREALB, TRANSF #### [facility] [address] [place] [address] Qudyk Metabolic Panlon 81-42-1809Uglzn gap [Moles/Vol]9 mmol/LNormal 0-15[facility] jopline HospitalCalcium [Mass/Vol]9.2 mg/dLNormal8.5-10.2[facility] HospitalChloride [Moles/Vol]115 mmol/VOdjf65-633Ubajtjxgggc HospitalCO2 [Moles/Vol]19 mmol/JFfw92-50Okxtbaffkoj HospitalCreatinine [Mass/Vol]0.78 mg/dL Normal0.58-0.96[facility] jopline HospitaleGFR- Amer.>60NormalSoutsaint monica's homee HospitaleGFR-All Other Races>60NormalShermann area district hospital HospitalComment on above:Result Comment: eGFR (Estimated GFR) Units of measure: [...] the eGFR may not accurately reflect actual GFR.Glucose [Mass/Vol]89 mg/dLNormal 74-99[facility] HospitalPotassium [Moles/Vol]3.8 mmol/LNormal3.7-5.1[facility] HospitalSodium [Moles/Vol]143 mmol/OCblajr132-085Jjvracabdlj HospitalUrea nitrogen [Mass/Vol]20 mg/dLNormal7-21SoLakeland Regional HospitalBlood Cultureon 05-83-4473Bwwhzbxx identified Cx Nom (Bld)Culture Result - No growth 5 days NormalSoLakeland Regional HospitalComment on above:Performed By: #### BLCUL ####[facility] [place] [id number] 7-8082A-Hqeabyfp Proteinon 02-82-0062EBC [Mass/Vol]mg/LNormal0.1-0.89[facility] Cancer InstituteComment on above:Performed By: #### PREALB, TRANSF #### [facility] [employer] [address] [place] [address] W4 Complementon 07-43-6377H8 Zdkrhistub642 mg/eNBixwou91-490 [facility] InstituteComment on above:Performed By: #### PREALB, TRANSF #### [place] [address] W4 Complementon 11-13-6091F6 Xgkexwdexi41 mg/rVRddelk25-40 [facility] Cancer InstituteComment on above:Performed By: #### PREALB, TRANSF #### [place] [address] SBOmg 37-10-7114Gsfvmway nRBC<0.01Normal<0.01[facility] Erythrocyte distribution width (RBC) [Ratio]16.6 %High11.5-15.0[facility] Cancer InstituteHematocrit (Bld) [Volume fraction]30.0 %Low36.0-46.0[facility] Hemoglobin (Bld) [Mass/Vol]8.9 g/dLLow11.5-15.5SSaint John's Saint Francis HospitalH26.5 pG Pvcejt51.0-34.0[facility] County Memorial HospitalHC (RBC) [Mass/Vol]29.7 g/dLLow30.5-36.0 [facility] County Memorial HospitalV (RBC) [Entitic vol]89.3 zWOgvdjj29.0-100.0[facility] Cancer InstitutePlatelet mean volume (Bld) [Entitic vol]11.5 fLNormal9.0-12.7Fre[facility] Cancer InstitutePlatelets (Bld) [#/Vol]155 10*3/cNPygzng484-622Ppkmwvcfayw HospitalRBC (Bld) [#/Vol]3.36 10*6/uLLow3.90-5.20SPutnam County Memorial HospitalWBC (Bld) [#/Vol]4.41 10*3/uLNormal3.70-11.00Fre[facility] Cancer InstituteCONSULTon [id number] ID: [id number] Author: Christopher Gonzalez V, MD Service: Infectious Disease Author Type: Physician Type: Consults Filed: 11/11/2020 1:19 PM Note Text: INFECTIOUS DISEASES CONSULT NOTE Referring Physician: Dr. Johnson Reason for Consult: +ve blood cultures HPI: [...] Class III, BMI 40-49.9 (morbid obesity) ([facility]) - Port-A-Cath in place patients right upper [...] flank tenderness PSYCH: No (more content not included)...NormalSouthpointe [facility] [id number] PROGHNO ID: [id number] Author: Anne-Marie Farley RN Service: Nursing Author Type: Registered Nurse Type: Nursing Progress Note Filed: 11/11/2020 9:50 PM Note Text: Nursing Progress Note Patient Name: Maricarmen Anderson Patient Location: [place]/ [place] Daily Note: 1945 received report, assumed pt care. According to medical team it is ok to use medport. 2147 Pt actively throwing up. Holding medications to be given when patient can swallow. 2147 Resident paged. This note was completed by: Anne-Marie HsiehCarondelet Health ID: [id number] Author: Carolina Lowry RN Service: ? Author Type: Registered Nurse Type: Nursing Progress Note Filed: 11/11/2020 7:46 PM Note Text: Nursing Progress Note Patient Name: Maricarmen Anderson Patient Location: [place]/ [place] Daily Note:Nursing assessment completed see NPR. No signs of distress. 1600 Spoke with the surgery doctor, ok to continue using medport. This note was completed by: Carolina PetersonSaint Mary's Hospital of [facility] 25-06-5775HUFRTI HEALTHHNO ID: [id number] Author: RT Mary(Liz) Service: Radiology Author Type: Garbage Truck Dispatcher Type: Allied Health Filed: 11/09/2020 11:44 PM [...] Erin Neri RT(R) November 09, 2020 11:44 PMNormalSolakeland regional hospital HospitalBasic Metabolic Panlon 11-10-2020 Anion gap [Moles/Vol]9 mmol/LNormal0-15[facility] HospitalCalcium [Mass/Vol]8.9 mg/dLNormal8.5-10.2[facility]rappahannock general hospital HospitalChloride [Moles/Vol]114 mmol/BNhuq84-309 [facility] HospitalCO2 [Moles/Vol]20 mmol/YNwd54-39[facility]gwdi Hospital Creatinine [Mass/Vol]0.83 mg/dLNormal0.58-0.96[facility] HospitaleGFR- Amer.>60NormalSoutsaint monica's homee HospitaleGFR-All Other Races>60NormalSoutsaint monica's homee HospitalComment on above:Result Comment: eGFR (Estimated GFR) Units of measure: mL/min/1.73 meters squared eGFR is derived from the reexpressed MDRD Study equation using the following parameters: serum creatinine, age, gender and race. The creatinine assay has been calibrated to be traceable to IDSD. An eGFR <60 mL/min/1.73m2 for >3 months is consistent with chronic kidney disease. Refer to KDOQI guidelines for clinical interpretation. In patients with unstable renal function, e.g. those with acute kidney injury, the eGFR may not accurately reflect actual GFR.Glucose [Mass/Vol]93 mg/dLNormal 74-99[facility] HospitalPotassium [Moles/Vol]3.9 mmol/LNormal3.7-5.1[facility] HospitalSodium [Moles/Vol]143 mmol/OTyejls612-937Meesbokbnwl HospitalUrea nitrogen [Mass/Vol]16 mg/dLNormal7-21[facility] HospitalCASE MGT INIT Cory 60-04-7487YQJV MGT INIT CHRISTA ID: [id number] Author: Estela Avila RN Service: ? 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 Last discharge within 30 days: No Advance Directive: Current Advance Directive: None Healthcare Recruiter Attempted to Assist with AD Completion: Yes [...] None Has the Patient Been in a Group Home Facility in the Past 30 days?: No SOCIAL: Living Arrangements: Home Lives With: Son Financial Resources: Disabled Primary Contact: Extended Emergency Contact Information Primary Emergency Contact: Omarsamira Khalida Mobile Relation: Sister Secondary Emergency Contact: Lucero Chaves Mobile Relation: Mother Supportive Patient Contact:: Yes Contact Resources: Family Family Name/Phone: Sister Khalida Anaya/[phone] Caregiver AssessmentCaregiver is ready, willing and able [...] Completely I feel financially burdened by my lmm-bs-pskrav expenses for my prescription medication:: 0 - Disagree Completely Risk Score: 0 Patient is categorized as: Low risk < 2 Are you interested in bedside delivery of your medications? No Is Patient Psychosocially Complex?: No ASSESSMENT AND PLAN: Medical Needs: Medical Needs: Two or more chronic diseases Psychosocial Needs: Psychosocial Needs: None FREEDOM OF CHOICE EXPLAINED: [place] of Choice Given: No Reason Not Given: [...] 10, 2020 TIME: 9:45 AM PAGER/CONTACT #: [phone]n Children's [facility] 11-10-2020 Absolute nRBC<0.01Normal<0.01[facility] Cancer InstituteErythrocyte distribution width (RBC) [Ratio]16.6 %High11.5-15.0[facility] Cancer InstituteHematocrit (Bld) [Volume fraction]29.0 %Low36.0-46.0[facility] InstituteHemoglobin (Bld) [Mass/Vol]8.6 g/dLLow11.5-15.5SPutnam County Memorial HospitalMCH26.5 fABerflm70.0-34.0[facility] Memorial HospitalHC (RBC) [Mass/Vol]29.7 g/dLLow30.5-36.0[facility] InstituteMCV (RBC) [Entitic vol]89.2 eBVenlek71.0-100.0[facility] InstitutePlatelet mean volume (Bld) [Entitic vol]11.2 fLNormal9.0-12.7[facility] HospitalPlatelets (d) [#/Vol]165 10*3/vQChhguz174-422Zxfbsacwget HospitalRBC (d) [#/Vol]3.25 10*6/uL Low3.90-5.20SUniversity of Missouri Children's Hospital (d) [#/Vol]4.26 10*3/uLNormal3.70-11.00 [facility] Cancer InstituteNHEALTHSOU[facility] PROGon [id number] PROGHNO ID: [id number] Author: Carolina Lowry RN Service: ? Author Type: Registered Nurse Type: Nursing Progress Note Filed: 11/10/2020 9:53 AM Note Text: Nursing Progress Note Patient Name: Maricarmen Anderson [facility] Daily Note:Nursing assessment completed see NPR. No signs of distress. This note was completed by: Carolina PetersonMercy hospital springfield [id number] ID: [id number] Author: Luz Watson RD Service: Nutrition Therapy [...] Chronic illness As evidenced by: Weight loss;Patient/family self-report;Nausea;Vomiting Estimated kilocalorie needs: 0211-3119 kcal/day Calorie Calculation Method: 15-20 kcals/kg Estimated protein needs (grams): 76-100 gm protein/day Grams protein determined by: 1.3 - 1.7 g/kg;[place] body weight Care Plan: Continue current diet [...] protein shake. She ate 1 serving of haitian toast this morning and had emesis following. [...] November 10, 2020 TIME: 12:50 PM PAGER: [phone] HospitalUrinalysis with Microscopic on 77-61-2216Grfgpvvy9+ /HPFCritically abnormalNegativeShermann area district hospital Hospital Bilirubin, UrineNegativeNormalNegativeSoutrappahannock general hospital HospitalCastSEE COMMENTNormal0 [facility] HospitalComment on above:Result Comment: 0Clarity (U)ClearNormal ClearSolakeland regional hospital HospitalColor (U)YellowNormalYellowSolakeland regional hospital HospitalCrystals LM Nom (Urine sed)SEE COMMENTCritically abnormalNegativeShermann area district hospital Hospital Comment on above:Result Comment: 2+ Calcium OxalateEpithelial cells LM Ql (Urine sed)SEE COMMENTCritically abnormal OccasionalSsm Depaul Health Center HospitalComment on above:Result Comment: 1+ Squamous Epithelial CellsGlucose Ql (U)NegativeNormalNegativeShermann area district hospital HospitalHemoglobin/Blood,UrNegativeNormalNegativeSoutrappahannock general hospital HospitalKetones Ql (U)TraceCritically abnormalNegativeShermann area district hospital HospitalLeukest1+Critically abnormalNegativeShermann area district hospital HospitalMucus Ql (Urine sed)1+NormalSouthnorthwest medical center HospitalNitrite Ql (U)NegativeNormalNegativeShermann area district hospital HospitalpH (U)6.5 [pH] Normal5.0-8.0[facility] HospitalProtein, UrineTraceCritically abnormalNegative [facility] InstituteRBC3-5Critically abnormal0-3[facility] HospitalSpecific [place], Ur1.563Oebqkq4.005-1.030SoLakeland Regional HospitalUrobilinogen Qn (U)1.0 {José'U}/dLNormal0.2-1.0SoLakeland Regional HospitalOagaymcvLAO07-61Weqqeicbub abnormal0-5 [facility] InstituteXR LUMBAR 2V AP/LATon 81-37-6692JE LUMBAR 2V AP/LAT* * *Final Report* * * DATE OF EXAM: Nov 09 2020 11:44PM SPX 5229 - XR LUMBAR 2V AP/LAT / PROCEDURE REASON: Back pain, prior surgery, new or progressive sx * * * * Physician Interpretation * * * * RESULT: EXAMINATION: XR THORACIC 2V AP/LAT, XR LUMBAR 2V AP/LAT HISTORY: mid back pain (accession [id number]), back pain (accession [id number]) Mid-back/T-spine pain, initial exam. TECHNIQUE: XR THORACIC [...] MD on Nov 10 2020 7:09AM EST [id number]-Jewish HospitalXR THORACIC 2V AP/LATon 66-31-8521ZA THORACIC 2V AP/LAT* * *Final Report* * * DATE OF EXAM: Nov 09 2020 11:44PM SPX 5262 - XR THORACIC 2V AP/LAT / PROCEDURE REASON: Mid-back/T-spine pain, initial exam * * * * Physician Interpretation * * * * RESULT: EXAMINATION: XR THORACIC 2V AP/LAT, XR LUMBAR 2V AP/LAT HISTORY: mid back pain (accession [id number]), back pain (accession [id number]) Mid-back/T-spine pain, initial exam. TECHNIQUE: XR THORACIC [...] MD on Nov 10 2020 7:09AM EST [id number] Memorial Hospital [id number] HEALTHHNO ID: [id number] Author: Uzair Betts Service: Radiology Author Type: Garbage Truck Dispatcher Type: Allied Health Filed: 11/09/2020 7:56 AM [...] IV DATA: Not applicable SIGNED BY: Uzair Betts November 09, 2020 7:55 AMNExcelsior Springs Medical Center ID: [id number] Author: Uzair Betts Service: Radiology Author Type: Garbage Truck Dispatcher Type: Allied Health Filed: 11/09/2020 7:51 AM [...] IV DATA: Not applicable SIGNED BY: Uzair Betts November 09, 2020 7:51 AMNormalEllett Memorial Hospital Cultureon 04-49-6005Wdyflhjb identified Cx Nom (Bld)Culture Result - No growth 5 daysNormSaint Luke's East HospitalComment on above:Performed By: #### BLCUL ####[facility] [place], [place] [phone] identified Cx Nom (Bld)Additional Testing - Methicillin resistant Staphylococcus epidermidis (MRSE) [...] and read back by: Nika Gore RN [facility] --> ABNORMAL ALERT [address] Surg 11/11/20 Anson Sharpe --> ABNORMAL ALERT Methicillin res istant Staphylococcus epidermidis (MRSE) detected by --> ABNORMAL ALERT microarray. Single positive cultures of S. epidermidis usually --> ABNORMAL ALERT represent contamination. Call lab within 72 h if further work up is --> ABNORMAL ALERT required. Negative for Streptococcus spp. and Enterococcus spp. by --> ABNORMAL ALERT microarray.(*) Called to and read back by: LAURYN QUINN [facility] --> ABNORMAL ALERT 11/11/20 at 0523 to M[place]IS --> ABNORMAL ALERT --> ABNORMAL ALERTCritically abnormalSouthpointe HospitalComment on above: Performed By: #### BLCUL ####[facility] [address] [place], [place] [phone] and Differentialon 73-97-3574Mts Baso <0.03Normal<0.11[facility] Cancer InstituteAbs Mono0.29 k/uLNormal<0.87[facility] Cancer InstituteAbs Neut3.25 k/uLNormal1.45-7.50[facility] HospitalAbsolute nRBC<0.01 Normal<0.01[facility] InstituteBasophils/100 WBC (Bld)0.4 %NormalFreeman Cancer InstituteDTYPEAuto DiffNormalSoutrappahannock general hospital HospitalEosinophils (Bld) [#/Vol]0.04 10*3/uLNormal<0.46[facility] HospitalEosinophils/100 WBC (Bld)0.8 %Normal [facility] Cancer InstituteErythrocyte distribution width (RBC) [Ratio]16.3 %High 11.5-15.0[facility] InstituteHematocrit (Bld) [Volume fraction]31.9 %Low 36.0-46.0[facility] InstituteHemoglobin (Bld) [Mass/Vol]9.6 g/dLLow11.5-15.5 [facility] InstituteLymphocytes (Bld) [#/Vol]1.33 10*3/uLNormal1.00-4.00 [facility] InstituteLymphocytes/100 WBC (Bld)26.9 %NormalFreeman Cancer InstituteMCH 26.0 lYEivprz13.0-34.0[facility] Cancer InstituteMCHC (RBC) [Mass/Vol]30.1 g/dLLow 30.5-36.0[facility] InstituteMCV (RBC) [Entitic vol]86.4 tKYecsef12.0-100.0 [facility] InstituteMonocytes/100 WBC (Bld)5.9 %NormalFreeman Cancer Institute Neutrophils/100 WBC (Bld)66.0 %NormalFreeman Cancer InstituteNRBCs0.0 /100 WBCNormal 0[facility] HospitalPlatelet mean volume (Bld) [Entitic vol]11.0 fLNormal 9.0-12.7[facility] HospitalPlatelets (Bld) [#/Vol]173 10*3/sBIttiax806-111 [facility] HospitalRBC (Bld) [#/Vol]3.69 10*6/uLLow3.90-5.20SPutnam County Memorial HospitalWBC (Bld) [#/Vol]4.95 10*3/uLNormal3.70-11.00[facility] HospitalCTA ABD/PELV W IVCONon 12-43-7733PHX ABD/PELV W IVCON* * *Final Report* * * DATE OF EXAM: Nov 09 2020 10:53AM SPC 0311 - CTA ABD/PELV W IVCON / [...] MD on Nov 09 2020 10:53AM EST [id number] HospitalCTA CHEST (NONGATED) W IVCONon [id number] CHEST (NONGATED) W IVCON* * *Final Report* * * DATE OF [...] MD on Nov 09 2020 10:53AM EST [id number] Hospital Metabolic Panelon 20-84-1440Ybcijvy [Mass/Vol]3.9 g/dLNormal3.5-5.0[facility] HospitalALP [Catalytic activity/Vol]56 U/VIpakrq61-420Jtatiawvygk HospitalALT [Catalytic activity/Vol]9 U/LNormal7-38[facility] HospitalAnion gap [Moles/Vol]9 mmol/L Normal0-15[facility] HospitalAST [Catalytic activity/Vol]16 U/ONjesqy78-34 [facility] HospitalBilirubin [Mass/Vol]0.5 mg/dLNormal0.2-1.3S[facility]rappahannock [facility] hospital HospitalCalcium [Mass/Vol]9.4 mg/dLNormal8.5-10.2[facility]rappahannock [facility] hospital HospitalChloride [Moles/Vol]110 mmol/ZTurg70-270Nbrewlcwcnx HospitalCO2 [Moles/Vol]21 mmol/LLow 22-30[facility]rappah[facility] hospital HospitalCreatinine [Mass/Vol]0.75 mg/dLNormal0.58-0.96 [facility] HospitaleGFR- Amer.>60NormalShermann area district hospital HospitaleGFR-All Other Races>60NormalShermann area district hospital HospitalComment on above:Result Comment: eGFR (Estimated GFR) Units of measure: [...] the eGFR may not accurately reflect actual GFR.Glucose [Mass/Vol]91 mg/dLNormal 74-99[facility] HospitalPotassium [Moles/Vol]3.6 mmol/LLow3.7-5.1[facility] HospitalProtein [Mass/Vol]6.6 g/dLNormal6.3-8.0[facility] HospitalSodium [Moles/Vol]140 mmol/ERgggfg663-864Cqkgjpsdodn HospitalUrea nitrogen [Mass/Vol]17 mg/dLNormal7-21SoLakeland Regional HospitalD dimeron 1D zvhii600 ng/mL FEUHigh <500Fre[facility] InstituteComment on above:Result Comment: 500 ng/mL FEU is the D [...] N, et al. Kellen Int Med 2016 165:253.ED NOTEon 68-33-4133HV NOTEHNO ID: [id number] Author: Yaya Singletary RN Service: ? Author Type: Registered Nurse Type: ED Notes Filed: 11/09/2020 1:34 PM Note Text: Report called to Abbey RN. All questions addressed. Vitals updated. Family at bedside. Pt NAD at this time. This RN at bedside to transport pt. Floor nurse aware of blood cultures and covid in process.[facility] NOTEHNO ID: [id number] Author: Yaya Singletary RN Service: ? Author Type: Registered Nurse Type: ED Notes Filed: 11/09/2020 7:44 AM Note Text: Portable CXR at bedside.[facility] NOTEHNO ID: [id number] Author: Yaya Singletary RN Service: ? Author Type: Registered Nurse Type: ED Notes Filed: 11/09/2020 7:18 AM Note Text: Assumed care of patient from Traci DIEGO. Pt in room standing up at bedside with emesis bag. NAD or active vomiting at this time. Joy PAULSON in room to talk with patient.[facility] SpringfieldED NOTEHNO ID: [id number] Author: Connie Vazquez RN Service: ? 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, 2013, also on OCPs - Eosinophilic esophagitis - Gastroparesis - GERD (gastroesophageal reflux disease) - History of gastric bypass complications - Obesity, Class III, BMI 40-49.9 (morbid obesity) ([facility]) - Port-A-Cath in place patients right upper [...] General: Skin is w (more content not included)...NormalSouthpointe Hospital HISTORY PHYSICALon [id number] PHYSICALHNO ID: [id number] Author: Ashley Loo MD Service: General Surgery Author Type: Resident Type: HANDP Filed: 11/09/2020 2:21 PM Note Text: Attestation signed by Clemente Johnson MD at 11/09/2020 4:28 PM Attending Note I evaluated the patient and personally participated in the edward components. I agree with the resident's findings and plan with the following revisions and/or additions: Blood cultures, Gabapentin Signature: Clemente Johnson Date: 11/09/2020 Time: 4:27 PM HISTORY AND PHYSICAL - GENERAL SURGERY PATIENT NAME: Maricarmen Anderson SERVICE DATE: November 09, 2020 SERVICE TIME: 12:44 PM REASON FOR CONSULT: Flank pain, fever unknown source REQUESTING PHYSICIAN: Mckenna Moreno* PRIMARY CARE PHYSICIAN: Viktor Bradford MD ASSESSMENT AND PLAN Gastroparesis GERD H/o [...] ok to use mediport Discussed with Dr. 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, 2013, also on OCPs - Eosinophilic esophagitis - Gastroparesis - GERD (gastroesophageal reflux disease) - History of gastric bypass complications - Obesity, Class III, BMI 40-49.9 (morbid obesity) ([facility]) - Port-A-Cath in place patients right upper [...] ALLERGIES: ALLERGIES Allergen Reactions (more content not included)...NormalSouthpointe HospitalHigh Sens Troponin Ton 67-50-8686Gmnn Sensitivity TNT6 ng/LNormal<12Southpoint HospitalComment on above:Result Comment: When assessing risk for acute coronary syndromes: In patients undergoing blood drawgreater than or equal to 2 hours from symptom onset, with history of very low to moderate risk and non-ischemic ECG, an initial hs-Troponin T less than 12 ng/L AND a 1 hour delta hs-Troponin T less than 3 ng/L should be considered very low risk for 30 day MACE.High Sensitivity TNT6 ng/LNormal<12SoHermann Area District Hospital on above:Result Comment: When assessing risk for acute coronary syndromes: In patients undergoing blood drawgreater than or equal to 2 hours from symptom onset, with history of very low to moderate risk and non-ischemic ECG, an initial hs- Troponin T less than 12 ng/L AND a 1 hour delta hs-Troponin T less than 3 ng/L should be considered very low risk for 30 day MACE.Intermed Rapid COVIDon 56-79-7239WDJI-CoV-2 (COVID-19) RNA CRISTINA+probe Ql (Unsp spec)Nasopharyngeal Swab NormalSoFreeman Heart Institutement on above:Performed By: #### ITCOVD ####[id number] [place], [place] [phone]-VhX-2 (COVID-19) RNA CRISTINA+probe Ql (Unsp spec)Negative for COVID19 (SARS CoV2) by RT-PCR or equivalent method.NormalNegative for COVID19 (SARS CoV2) by RT-PCR or equivalent method.[facility] on above:Result Comment: This test was developed and its performance characteristics determined by [facility]'s [facility] Pathology [facility] Laboratory [facility] [place]. This test has been authorized by FDA under an Emergency Use Authorization (EUA). This test has been validated in accordance with the FDA's Guidance Document Policy for DiagnosticsTesting in Laboratories Certified to Perform High Complexity Testing under CLIA prior to Emergency use Authorization for Coronavirus Disease 2019 during the Public Health Emergency issued on August 20, 2019. Test performed by [facility], [facility] Pathology and Laboratory [facility] [place], [address] [place], [place] [address].Performed By: #### ITCOVD ####[place] [place], [place] [phone] 75-43-1839Tyzrgt [Catalytic activity/Vol]21 U/NVncjup58-91BgbuwkrqvyvRusk Rehabilitation Center 11-[facility]-2020 N[facility]SING [facility] ID: [id number] Author: Saskia Cm RN Service: ? Author Type: Registered Nurse Type: Nursing Progress Note Filed: 11/10/2020 6:04 AM Note Text: Nursing Progress Note Patient Name: Maricarmen Anderson Patient Location: [place]/ [place] Daily Note: Received report from LAURYN Joel. 2020: Assessment completed, patient states feeling better than she did earlier today. Safety maintained, will continue to monitor. 2215: Observed patient asleep. 0005: Patient back up to floor from radiology. 0200: Observed patient asleep. 0309: Blood work collected. 0500: Observed patient asleep. 0603: Patient rates pain 8/10; paged resident. This note was completed by: Saskia WilderSaint [facility]'s [facility] ID: [id number] Author: Wisam Carvajal RN Service: ? Author Type: Registered Nurse Type: Nursing Progress Note Filed: 11/09/2020 7:00 PM Note Text: Nursing Progress Note Patient Name: Maricarmen Anderson Patient Location: ME/ ME Daily Note: 1454: assessment complete, patient complains of severe left flank pain and nausea, will continue to monitor 1845: Blood cultures collected and sent to lab This note was completed by: Wisam [facility] ID: [id number] Author: Wisam Carvajal RN Service: ? Author Type: Registered Nurse Type: Nursing Progress Note Filed: 11/09/2020 5:16 PM Note Text: Nursing Progress Note Patient Name: Maricarmen Anderson Patient Location: [facility]/ [place]- Transfer Note: Patient transferred into room/unit 931 in stable condition. Actions taken: No futher actions taken at this time. Will continue to monitor and check with patient. This note was completed by: Wisam CarvajalNoCarondelet HealthUrinalysis with Microscopicon 94-75-1358Gwhymzho2+ /HPFCritically abnormalNegative Southcranberry townshipe HospitalBilirubin, UrineNegativeNormalNegativeSoutBothwell Regional Health Center CastSEE YTPFMIEMpjbms4Givireuozjp HospitalComment on above:Result Comment: 0 Clarity (U)Slightly CloudyCritically abnormalClearSoutrappahannock general hospital HospitalColor (U) YellowNormalYellowSsm [facility]aul [facility] HospitalEpithelial cells LM Ql (Urine sed)SEE COMMENTCritically abnormalOccasionalShermann area district hospital HospitalComment on above:Result Comment: 2+ Squamous Epithelial CellsGlucose Ql (U)NegativeNormalNegativeSoutrappahannock general hospital HospitalHemoglobin/Blood,UrNegativeNormalNegativeSoutrappahannock general hospital HospitalKetones Ql (U)NegativeNormalNegativeSoutBothwell Regional Health CenterLeukest1+Critically abnormal NegativeSoutrappahannock general hospital HospitalNitrite Ql (U)NegativeNormalNegativeShermann area district hospital HospitalpH (U)6.5 [pH]Normal5.0-8.0[facility] HospitalProtein, UrineTrace Critically abnormalNegativeSPutnam County Memorial HospitalKpxktyfgGLJ2-7Abpltt0-3Utmwwrtdpyu HospitalSpecific [place], Ur>=1.699Xkzatl4.005-1.030SoLakeland Regional Hospital Urobilinogen Qn (U)2.0 {José'U}/dLHigh0.2-1.0Freeman Cancer InstituteWBC6-10 Critically abnormal0-5SPutnam County Memorial HospitalUrine Cultureon 02-29-1170Hfkkkmdw identified Cx Nom (U)Sp. Request/Comment: - Best Practice Alert: To ensure [...] Culture Result - <10,000 CFU/ml Normal urogenital floraNormalSPutnam County Memorial HospitalComment on above:Performed By: #### URCUL ####[facility] [address] [place], [place] [phone] CHEST 1V FRONTAL PORTon [id number] CHEST 1V FRONTAL PORT* * *Final Report* * * DATE OF [...] MD on Nov 09 2020 7:59AM EST [id number]_[id number] RehabPNon [id number] (GENSSP) MARICARMEN ANDERSON ([id number]) 1980 F T Date Time Provider Department 11/08/20 CLEMENTE JOHNSON During your visit today, we recorded the following information about you: BYRON Richter 11/08/2020 9:29 AM Signed Called PCP office (Dr Viktor Bradford) [phone] is out of the office this week. Asked if Nurse could fax copies of recent lab work, imaging that may have been done while patient was recently hospitalized last week. BYRON Richter CT 11/09/2020 8:17 AM Signed Outside records received and scanned to [employer] Forwarded to Dr Johnson. BYRON Richter Allergies As of Date: 11/08/2020 Noted Allergy Reaction DILAUDID (HYDROMORPHONE (BULK)) 03/28/2019 9 - Itching Date Reviewed: 11/07/2020 Reviewed by: Clemente Johnson MD - Fully Assessed Reason for Visit: [...] nausea [R11.2] 05/25/2020 Encounter Status:Closed by NICOLETTE SAHNI on 11/09/20NoKettering Health PrebleTEJALon [id number] (GENSSP) MARICARMEN ANDERSON ([id number]) 1980 F T Date Time Provider Department 11/05/20 CLEMENTE JOHNSON During your visit today, we recorded the [...] one. She doesn't want the [place]. Nicolette Sahni, CT Allergies As of Date: 11/05/2020 Noted Allergy Reaction DILAUDID (HYDROMORPHONE (BULK)) 03/28/2019 9 - Itching Date Reviewed: 09/29/2020 Reviewed by: Anne-Marie (Rn) LAURYN Farley - Fully Assessed Reason for Visit: Patient Question [9327] Prescriptions as of 11/05/2020 Sig: LORAZEPAM 0.5 [...] Encounter Status:Closed by CARLOS ALBERTO SIMMONS on 11/07/20[facility] HospitalToya [id number] (NSCAMN) MARICARMEN ANDERSON ([id number]) 1980 F T Date Time Provider Department 10/30/20 EMELIA BALDWIN NSCAMN During your visit today, we recorded the following information about you: Urmila Hein Adm 2020 8:29 AM Signed Order Request Caller : Maricarmen Contact Order Being Requested : MRI Cervical Spine Orders need to be placed in [facility] Laith Donaldson RN 2020 12:42 [...] (HCC) [G93.5] Order(s):MRI CERVICAL SPINE WO IVCON [[id number]] Order #: [id number] FUTURE Prescriptions as of 2020 Sig: LORAZEPAM [...] 05/25/2020 Encounter Status:Closed by LAITH DONALDSON on 10/30/20NoVan Wert County HospitalRaman [id number] (SPPRAD) MARICARMEN ANDERSON ([id number]) 1980 F [facility] Date Time Provider Department 10/22/20 CLEMENTE JOHNSON During your visit today, we recorded the following information about you: Clemente Johnson MD 10/22/2020 11:13 AM Signed Called patient [...] Reason for Visit: Radio Imaging Study Comments [2115] Prescriptions as of 10/22/2020 Sig: IV CONTRAST [...] vomiting [R11.2] 05/25/2020 Encounter Status:Closed by CLEMENTE JOHNSON on 10/22/20[facility] [id number] (STEPHANIEP) MARICARMEN ANDERSON ([id number]) 1980 F T Date Time Provider Department 10/08/20 CLEMENTE JOHNSON During your visit today, we recorded the [...] was. She has a virtual with Dr Johnson on 10/19/2020 but doesn't know if this can wait til then. She was also diagnosed with a UTI BYRON Richter CT, CT 10/08/2020 10:[address] Johnson patient should come to the ER at [facility] if she is dehydrated and a new tube will be placed. Dr Johnson states that patient does have a fistula [...] Fully Assessed Reason for Visit: Patient Question [8157] Prescriptions as of 10/08/2020 Sig: ACETAZOLAMIDE 250 [...] 05/25/2020 Encounter Status:Closed by NICOLETTE KING on 10/09/20NoOhio[facility] Metabolic Panlon [id number] gap [Moles/Vol]10 mmol/LNormal 0-15Fre[facility] Cancer InstituteComment on above:Performed By: #### PREALB ####[place] [address] [place], [place] [phone] [Mass/Vol]9.4 mg/dLNormal8.5-10.2SPutnam County Memorial HospitalComment on above:Performed By: #### PREALB ####[place] [address] [place], [place] [phone] [Moles/Vol]110 mmol/RPqtr55-406Uonnahzpwes Hospital Comment on above:Performed By: #### PREALB ####[place] [address] [place], [place] [phone] [Moles/Vol]20 mmol/NYjg12-79 Freeman Cancer InstituteComment on above:Performed By: #### PREALB ####[place] [address] [place], [place] [phone] [Mass/Vol]0.75 mg/dLNormal0.58-0.96S[facility] HospitalComment on above: Performed By: #### PREALB ####[place] [address] [place], [place] [phone]-Znzdtxu Amer.>60NormalShermann area district hospital HospitalComment on above:Performed By: #### PREALB ####[place] [address] [place], [place] [phone]-Ydm Other Races >60NormalShermann area district hospital HospitalComment on above:Result Comment: eGFR (Estimated GFR) Units of measure: [...] the eGFR may not accurately reflect actual GFR.Performed By: #### PREALB ####[place] [address] [place], [place] [phone] [Mass/Vol]108 mg/oRMlca86-81Hgwlnyjukgi HospitalComment on above: Performed By: #### PREALB ####[place] [address] [place], [place] [phone] [Moles/Vol]3.6 mmol/LLow3.7-5.1 Freeman Cancer InstituteComment on above:Performed By: #### PREALB ####[place] [address] [place], [place] [phone] [Moles/Vol]140 mmol/ERwqwqh834-820Kxzmoqyzqgn HospitalComment on above:Performed By: #### PREALB ####[place] [address] [address] [place], [place] [phone] nitrogen [Mass/Vol]12 mg/dLNormal7-21[facility] Comment on above:Performed By: #### PREALB ####[facility] [address] [place], [place] [phone] MANAGEMon 11-62-3213DSDB MANAGENO ID: [id number] Author: Wiliam Santamaria Service: Case Management Author [...] the process utilized to ensure compliance with [facility] policy regarding Inpatient Admission and Observation [...] treating physician's order as documented evidence of concurrence.NormalSouthpointe HospitalCASE MGT INYANIQUE PATEL on 40-32-0287XNXO MGT INYANIQUE GOODWIN ID: [id number] Author: Anaid (Rn) LAURYN Valencia Service: ? 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 Last discharge within 30 days: No Advance Directive: Current Advance Directive: None Healthcare Recruiter Attempted to Assist with AD Completion: Yes [...] supplies Has the Patient Been in a Group Home Facility in the Past 30 days?: No SOCIAL: Primary Contact: Extended Emergency Contact Information Primary Emergency Contact: OmarsamiraKhalida Mobile Relation: Sister Secondary Emergency Contact: Lucero [...] Mostly I feel financially burdened by my ook-qi-tjrmgb expenses for my prescription medication:: 0 - Disagree Mostly Risk Score: 0 Patient is categorized as: Low risk < 2 Are you interested in bedside delivery of your medications? Not known ASSESSMENT AND PLAN: Medical Needs: Medical Needs: Two or more chronic diseases;Nutritional Nutrition Needs: Tube Feed Psychosocial Needs: Psychosocial Needs: None FREEDOM OF CHOICE EXPLAINED: [place] of Choice Given: No (No new placeement needed and to continue with [facility]) POTENTIAL TRANSITION PLANS Home Care;Home Care Pharmacy Patient's young son lives with her, and when asked, she states that she is independent. Patient is on home enteral tube feedings via jejunostomy and here for malfunctioning tube. Provider is [facility] and referral sent. Patient is independent with [...] 29, 2020 TIME: 11:04 AM PAGER/CONTACT #: [phone] [facility] Hospital 09-29-2020 Absolute nRBC<0.01Normal<0.01SoLakeland Regional HospitalComment on above:Performed By: #### PREALB ####[facility] [address] [place], [place] [phone] distribution width (RBC) [Ratio]15.3 %High11.5-15.0 Freeman Cancer InstituteComment on above:Performed By: #### PREALB ####[facility] [address] [place], [place] [phone] (Bld) [Volume fraction]30.3 %Low36.0-46.0S[facility] HospitalComment on above: Performed By: #### PREALB ####[place] [address] [address] [phone] (Bld) [Mass/Vol]9.1 g/dLLow 11.5-15.5Shermann area district hospital HospitalComment on above:Performed By: #### PREALB ####[place] [address] [address] [phone] pGLow26.0-34.0S[facility] HospitalComment on above:Performed By: #### PREALB ####[place] [address] [address] [phone] (RBC) [Mass/Vol]30.0 g/dLLow30.5-36.0[facility] Hospital Comment on above:Performed By: #### PREALB ####[place] [address] [address] [phone] (RBC) [Entitic vol]86.3 fLNormal 80.0-100.0Fre[facility] Cancer InstituteComment on above:Performed By: #### PREALB ####[place] [address] [place] [address] [place] [phone] mean volume (Bld) [Entitic vol]10.6 fLNormal9.0-12.7S[facility] HospitalComment on above:Performed By: #### PREALB ####[place] [address] [address] [phone] (Bld) [#/Vol]170 10*3/sKWufjpa466-160Hzxobemrefo HospitalComment on above:Performed By: #### PREALB ####[place] [address] [address] [phone] (Bld) [#/Vol]3.51 10*6/uLLow3.90-5.20SPutnam County Memorial Hospital Comment on above:Performed By: #### PREALB ####[facility] [address] [place], [place] [phone] (Bld) [#/Vol]6.60 10*3/uLNormal 3.70-11.00Fre[facility] Cancer InstituteComment on above:Performed By: #### PREALB ####[facility] [address] [place], [place] [phone] 62-52-5318YLLZMJE ID: [id number] Author: Maynor Manley DO Service: General Surgery Author Type: Resident Type: Discharge Summary Filed: 09/29/2020 11:11 AM Note Text: Attestation signed by Alicia Al at 09/29/2020 11:15 AM Attending Note I evaluated the patient and personally participated in the edward components. I agree with the resident's findings and plan as documented and have discussed the case and management of the patient's care with the resident. Plan of care discussed with: Patient. Signature: Alicia Al DO Date: September 29, 2020 Time: 11:15 AM DISCHARGE NOTE (Patient Admitted Less than 48 [...] pre-hospital activity FOLLOW UP CARE REQUIRED: Dr. Johnson this week DISCHARGE MEDICATIONS (ONLY ACTIVATE WHEN [...] Anderson DATE: September 29, 2020 TIME: 11:09 [facility] ABD/PEL WO IVCONon 17-05-8894EZ ABD/PEL WO IVCON* * *Final Report* * * DATE OF EXAM: Sep 28 2020 10:39PM SPC 0531 - CT ABD/PEL WO IVCON / [...] Tissues: No acute abnormality. Lower thorax: Unremarkable. Internal Investigator (topogram) images: No additional findings. IMPRESSION: Retracted [...] MD on Sep 28 2020 11:12PM EST [id number] medical center HospitalCoronavirus 2019on 09-29-2020 SARS-CoV-2 (COVID-19) RNA CRISTINA+probe Ql (Unsp spec)Nasopharyngeal SwabNormal [facility] Cancer InstituteComment on above:Performed By: #### COVID ####[facility] [place], [place] [phone]-DbI-1 (COVID-19) RNA CRISTINA+probe Ql (Unsp spec)NegativeNormalNegative for COVID19 (SARS CoV2) by PCR.[facility] InstituteCommarshfield medical center on above:Result Comment: This test was developed and its performance characteristics determined by [facility]'s [facility] [place]. This test has been authorized by FDA under an Emergency Use Authorization (EUA). This test has been validated in accordance with the FDA's Guidance Document Policy for DiagnosticsTesting in Laboratories Certified to Perform High Complexity Testing under CLIA prior to Emergency use Authorization for Coronavirus Disease 2019 during the Public Health Emergency issued on August 20, 2019. Test performed by [facility], [facility] [place], [address], [place] [address].Performed By: #### COVID ####[facility] [address] [place], [place] [phone] NOTEon [id number] NOTEHNO ID: [id number] Author: Soco (Rn) LAURYN Bardales Service: ? Author Type: Registered Nurse Type: ED Notes Filed: 09/28/2020 11:04 PM Note Text: covid obtained and sent.[facility] PROGo 09-29-2020 NURSING PRONO ID: [id number] Author: Mercy VasquezRn) LAURYN Whitaker Service: ? Author Type: Registered Nurse Type: Nursing Progress Note Filed: 09/29/2020 12:51 PM Note Text: Nursing Progress Note Patient Name: Maricarmen Anderson Patient Location: [place]/ [place] Daily Note: patient resting in bed, made NPO for removal of J-tube. This note was completed by: Mercy Whitaker [facility]Do[facility] PRONO ID: [id number] Author: Anne-Marie VasquezRn) LAURYN Farley Service: Nursing Author Type: Registered Nurse Type: Nursing Progress Note Filed: 09/29/2020 7:33 AM Note Text: Nursing Progress Note Patient Name: Maricarmen Anderson Patient Location: [facility]/ [place] Daily Note: 0054 Pt arrived in room, oriented to floor and room, safety maintained. 0100 Pt has a fever tylenol given. 0733 Report given to Mercy (Lauryn). This note was completed by: Paty PereraMercy hospital springfield [id number] ID: [id number] Author: Molly Tello) Gurpreet Service: Nutrition Therapy Author Type: Registered Dietitian Type: Nutrition Filed: 09/29/2020 11:21 AM Note Text: NUTRITION THERAPY INITIAL ASSESSMENT SERVICE DATE: 09/29/2020 SERVICE TIME: 11:13 AM Nutrition Assessment: Recommended Malnutrition Diagnosis: No Malnutrition Identified Nutrition Diagnosis: Problem: Inadequate Enteral Nutrition Infusion Related to: Mechanical cause As evidenced by: Patient/family self-report Estimated kilocalorie needs: 2269 Calorie Calculation Method: [place]. ThinkSmartor (with activity factor) (1.3) Estimated protein needs (grams): 77-100 Grams protein determined by: 1.3 - 1.7 g/kg;[place] body weight Care Plan: Advance diet to regular diet with TF Supplements: zone bar, Boost GC, and loraine farms each daily Enteral Nutrition Tube Feeding Formula [...] 7. BREAKFAST, LUNCH, DINNER Supplement 3 LORAINE FARMS 1.0 CHOCOLATE Supplement 3 Frequency 7. BREAKFAST, [...] September 29, 2020 TIME: 11:13 AM PAGER: [phone]let HealthPrealbuminon 09-29-2020 Prealbumin [Mass/Vol]21 mg/qEHzaqwc62-87Fzwryatbhca HospitalComment on above: Performed By: #### PREALB ####[facility] [address] [place], [place] [phone] and Differentialon 48-77-3734Fbt Baso <0.03Normal<0.11[facility] HospitalAbs Mono0.28 k/uLNormal<0.87[facility] HospitalAbs Neut5.26 k/uLNormal1.45-7.50[facility] HospitalAbsolute nRBC<0.01 Normal<0.01[facility] InstituteBasophils/100 WBC (Bld)0.3 %NormalFreeman Cancer InstituteDTYPEAuto DiffNormalSoutrappahannock general hospital HospitalEosinophils (Bld) [#/Vol]0.04 10*3/uLNormal<0.46[facility] HospitalEosinophils/100 WBC (Bld)0.6 %Normal [facility] Cancer InstituteErythrocyte distribution width (RBC) [Ratio]15.2 %High 11.5-15.0[facility] HospitalHematocrit (Bld) [Volume fraction]31.5 %Low 36.0-46.0[facility] HospitalHemoglobin (Bld) [Mass/Vol]9.3 g/dLLow11.5-15.5 [facility] HospitalLymphocytes (Bld) [#/Vol]0.93 10*3/uLLow1.00-4.00[facility] HospitalLymphocytes/100 WBC (Bld)14.2 %NormalFreeman Cancer InstituteMCH25.6 pGLow 26.0-34.0[facility] Cancer InstituteMCHC (RBC) [Mass/Vol]29.5 g/dLLow30.5-36.0 [facility] InstituteMCV (RBC) [Entitic vol]86.8 oKQaufga54.0-100.0[facility] HospitalMonocytes/100 WBC (Bld)4.3 %NormalSsm [facility]aul Health Center HospitalNeutrophils/100 WBC (Bld)80.6 %NormalFreeman Cancer InstituteNRBCs0.0 /100 HXAPjzzcj5Jxvdqprgjhi HospitalPlatelet mean volume (Bld) [Entitic vol]10.4 fLNormal9.0-12.7[facility] HospitalPlatelets (Bld) [#/Vol]186 10*3/cUOxpkmr700-263Fenuvszitcb HospitalRBC (Bld) [#/Vol]3.63 10*6/uLLow3.90-5.20Southpmarshall [facility] south HospitalWBC (Bld) [#/Vol]6.54 10*3/uLNormal3.70-11.00[facility] Cancer InstituteCNPNon 60-26-3259RGPIAzollqscn (GENSSP) MARICARMEN ANDERSON ([id number]) 1980 F [facility] Date Time Provider Department 09/28/20 CLEMENTE JOHNSON During your visit today, we recorded the [...] 09/28/2020 4:47 PM Signed Addended by: CLEMENTE JOHNSON MD on: 09/28/2020 04:47 PM Modules accepted: Chuck Waterman RN 10/01/2020 2:19 PM Signed Tell her not to use it. ? I'll order a tube study - Xray with contrast. ?And I'll call her after I see this. Clemente Johnson MD Message text Kathi Waterman RN 10/01/2020 2:27 PM Signed Spoke with patient. She states that she ended up going to the ER on Thursday. They called Dr. Johnson and was instructed to just remove the tube. Virtual follow up visit placed on hold with Dr. Johnson on Thursday, 10/19 at 0900 - given to clerical to make it legit. Allergies As of Date: 09/28/2020 Noted Allergy Reaction DILAUDID (HYDROMORPHONE (BULK)) 03/28/2019 9 - Itching Date Reviewed: 09/28/2020 Reviewed by: Keven (Rn) LAURYN Reid - Fully Assessed Reason for Visit: Patient Question [7947] Primary Visit Diagnosis:Gastrojejunostomy tube dislodgement [T85.528A] Order(s):XR ABDOMEN 1V SUPINE [[id number]] Order #: [id number] FUTURE Prescriptions as of 09/28/2020 Sig: ACETAZOLAMIDE [...] 05/25/2020 Encounter Status:Closed by NICOLETTE KING on 09/28/20[facility] [id number] ID: [id number] Author: Elissa Medina MD Service: General Surgery Author Type: Resident Type: Consults Filed: 09/29/2020 12:30 AM Note Text: Attestation signed by Alicia Al at 09/29/2020 11:22 AM Attending Note [...] sore. I discussed the case with Dr. Johnson, who knows the patient, and recommendation was made to pull the J tube and dc home with plan for virtual follow up. Signature: Alicia Al DO Date: September 29, 2020 Time: 11:21 AM HISTORY AND PHYSICAL - GENERAL SURGERY PATIENT NAME: Maricarmen Anderson SERVICE DATE: September 28, 2020 SERVICE TIME: 8:35 PM REASON FOR CONSULT: Abdominal pain, PEJ tube malfunction REQUESTING PHYSICIAN: No att. 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, 2013, also on OCPs - Eosinophilic esophagitis - Gastroparesis - GERD (gastroesophageal reflux disease) - History of gastric bypass complications - Obesity, Class III, BMI 40-49.9 (morbid obesity) ([facility]) - Port-A-Cath in place patients right upper [...] significant neck swelling RESPIRATO (more content not included)...NormalSouthMedical Center Barbour Metabolic Panelon 94-16-6553Pzctyme [Mass/Vol]4.3 g/dLNormal3.5-5.0[facility] ALP [Catalytic activity/Vol]72 U/EWmdeud78-655Dbjxgslkbrx HospitalALT [Catalytic activity/Vol]11 U/LNormal7-38[facility] HospitalAnion gap [Moles/Vol]11 mmol/L Normal0-15[facility] HospitalAST [Catalytic activity/Vol]19 U/RTtqfzh08-96 [facility] HospitalBilirubin [Mass/Vol]0.4 mg/dLNormal0.2-1.3[facility]rappahannock [facility] hospital HospitalCalcium [Mass/Vol]9.6 mg/dLNormal8.5-10.2[facility] HospitalChloride [Moles/Vol]110 mmol/DUnuz16-832Nmotceqgjqu HospitalCO2 [Moles/Vol]18 mmol/LLow 22-30[facility]ra[facility] HospitalCreatinine [Mass/Vol]0.68 mg/dLNormal0.58-0.96 [facility] Cancer InstituteeGFR- Amer.>60NormalShermann area district hospital HospitaleGFR-All Other Races>60NormalShermann area district hospital HospitalComment on above:Result Comment: eGFR (Estimated GFR) Units of measure: [...] the eGFR may not accurately reflect actual GFR.Glucose [Mass/Vol]97 mg/dLNormal 74-99[facility] HospitalPotassium [Moles/Vol]3.8 mmol/LNormal3.7-5.1[facility] HospitalProtein [Mass/Vol]7.3 g/dLNormal6.3-8.0[facility] HospitalSodium [Moles/Vol]139 mmol/FXhxock967-246Oskncpumlem HospitalUrea nitrogen [Mass/Vol]14 mg/dLNormal7-21[facility] HospitalED NOTEon [id number] NOTEHNO ID: [id number] Author: Arminda Coffey) LAURYN Wong Service: ? Author Type: Registered Nurse Type: ED Notes Filed: 09/28/2020 9:17 PM Note Text: Pt has finished Contrast via tubeNormalSOzarks Community Hospital NOTEHNO ID: [id number] Author: Keven (Rn) LAURYN Reid Service: ? Author Type: Registered [...] side rails up x2. Call bagley within reach.Normal [facility] PROV NOTEon [id number] PROV NOTEHNO ID: [id number] Author: LORENE Singleton Service: Emergency Medicine Author Type: Physician Locomotive Mechanic Type: ED Provider Notes Filed: 09/28/2020 11:36 [...] Class III, BMI 40-49.9 (morbid obesity) ([facility]) - Port-A-Cath in place patients right upper [...] of movement of the (more content not included)...NormalSolakeland regional hospital HospitalLipaseon 59-58-3395Gvlypt [Catalytic activity/Vol]30 U/DRqdyjw30-28Lsyvgyoungr HospitalBasic Metabolic Panlon 03-81-5641Ntyqy gap [Moles/Vol]10 mmol/LNormal0-15[facility] HospitalCalcium [Mass/Vol]9.2 mg/dLNormal8.5-10.2[facility] HospitalChloride [Moles/Vol]106 mmol/UGffr67-920Wbyikgfersl HospitalCO2 [Moles/Vol]23 mmol/NLxuisu33-21 [facility] HospitalCreatinine [Mass/Vol]0.78 mg/dLNormal0.58-0.96SoLakeland Regional HospitaleGFR- Amer.>60NormalSoutBothwell Regional Health CentereGFR-All Other Races>60 NormalFreeman Cancer InstituteComment on above:Result Comment: eGFR (Estimated GFR) Units of measure: mL/min/1.73 meters squared eGFR is derived from the reexpressed MDRD Study equation using the following parameters: serum creatinine, age, gender and race. The creatinine assay has been calibrated to be traceable to [facility]. An eGFR <60 mL/min/1.73m2 for >3 months is consistent with chronic kidney disease. Refer to KDOQI guidelines for clinical interpretation. In patients with unstable renal function, e.g. those with acute kidney injury, the eGFR may not accurately reflect actual GFR.Glucose [Mass/Vol]88 mg/dLNormal 74-99[facility] HospitalPotassium [Moles/Vol]3.9 mmol/LNormal3.7-5.1[facility] HospitalSodium [Moles/Vol]139 mmol/REomqyn710-770Lgyeozrxoxl HospitalUrea nitrogen [Mass/Vol]8 mg/dLNormal7-21[facility] Cancer InstituteCBC and Differentialon 48-02-6474Pem Baso<0.03Normal<0.11Fre[facility] Cancer InstituteAbs Mono0.33 k/uLNormal <0.87Fre[facility] Cancer InstituteAbs Neut2.58 k/uLNormal1.45-7.50[facility] Absolute nRBC<0.01Normal<0.01Fre[facility] Cancer InstituteBasophils/100 WBC (Bld)0.5 % NormalFreeman Cancer InstituteDTYPEAuto DiffNormalSoutrappahannock general hospital HospitalEosinophils (Bld) [#/Vol]0.08 10*3/uLNormal<0.46[facility] HospitalEosinophils/100 WBC (Bld)1.9 %NormalFreeman Cancer InstituteErythrocyte distribution width (RBC) [Ratio] 13.5 %Dmcrzz23.5-15.0[facility] HospitalHematocrit (Bld) [Volume fraction]27.4 %Low36.0-46.0[facility] HospitalHemoglobin (Bld) [Mass/Vol]8.4 g/dLLow11.5-15.5 [facility] Cancer InstituteLymphocytes (Bld) [#/Vol]1.25 10*3/uLNormal1.00-4.00 [facility] Cancer InstituteLymphocytes/100 WBC (Bld)29.3 %[facility] 27.6 eBYkivhy82.0-34.0[facility] HospitalHC (RBC) [Mass/Vol]30.7 g/dLNormal 30.5-36.0[facility] Memorial HospitalV (RBC) [Entitic vol]90.1 mMTfdwfh95.0-100.0 [facility] InstituteMonocytes/100 WBC (Bld)7.7 %[facility] Neutrophils/100 WBC (Bld)60.6 %[facility] SpringfieldNRBCs0.0 /100 WBCNormal 0[facility] HospitalPlatelet mean volume (Bld) [Entitic vol]10.9 fLNormal 9.0-12.7[facility] HospitalPlatelets (Bld) [#/Vol]148 10*3/sEAus158-697 [facility] HospitalRBC (Bld) [#/Vol]3.04 10*6/uLLow3.90-5.20SPutnam County Memorial HospitalWBC (Bld) [#/Vol]4.27 10*3/uLNormal3.70-11.00Freeman Cancer InstituteCNDSon 07-51-2025SGCJLIL ID: [id number] Author: Deirdre Dejesus Service: General Surgery Author Type: Resident Type: Discharge Summary Filed: 05/30/2020 1:33 PM Note Text: Attestation signed by Clemente Johnson at 05/30/2020 1:59 PM Attending Note I evaluated the patient and personally participated in the edward components. I agree with the resident's findings and plan as documented and have discussed the case and management of the patient's care with the resident. Signature: Clemente Johnson MD Date: 05/30/2020 Time: 1:59 PM DISCHARGE SUMMARY PATIENT NAME: Maricarmen Anderson ADMISSION DATE: 05/25/2020 DISCHARGE DATE: 05/29/20 Attending Physician: Clemente Johnson Code Status: Prior Highest Readmission Risk Score: [...] During Hospitalization: Treatment Team: Attending Provider: Clemente Johnson Consulting: Clemente Johnson None Patient Condition @ Discharge: Stable Discharge [...] 1 Suppository by RECTAL (more content not included)...[facility] NURSING PROGon [id number] PRORADHA ID: [id number] Author: Mitchel VasquezRnNorth Larry RN Service: Nursing Author Type: Registered Nurse Type: Nursing Progress Note Filed: 05/29/2020 3:35 PM Note Text: Nursing Progress Note Patient Name: Maricarmen Anderson Patient Location: ME/ ME-2 0730 Assumed care of patient after report from night RN. 1311 tube feed rate increased to goal rate of 55 ml/hr. Dr. Johnson (PCP) plans to discharge today. No distress at this time. Patient expressing eagerness to go home [address] Johnson he is to have underwriting intern write up discharge order and instructions. This note was completed by: Paty LoeraCarondelet Health NUTRITIONon 29-77-5771GWYULWEOAYCE ID: [id number] Author: Maricarmen Santiago Service: Nutrition Therapy Author Type: Registered Dietitian Type: Nutrition Filed: 05/29/2020 11:16 AM Note Text: NUTRITION THERAPY PROGRESS NOTE SERVICE DATE: 05/29/2020 SERVICE TIME: 11:15 AM Nutrition Assessment: Recommended Malnutrition Diagnosis: Mild Protein-Calorie Malnutrition (05/26/20 1142 : Molly (Maik) Gurpreet) Estimated kilocalorie needs: 2040 Calorie Calculation Method: [place]-. Gab (with activity factor)(1.2 AF) Estimated protein [...] Tube Feeding;Diet Diet: per physician Enteral/Tube Feedings: Local Matters Peptide 1.5 @ 55 ml/hr Interval History:Pt started on TF [employer] Mat[employer] Peptide 1.5. Currently running at 40 ml/hr [...] Maricarmen Santiago RD, RON PATIENT NAME: Maricarmen Anderson DATE: May 29, 2020 TIME: 11:15 AM PAGER: [phone]let HealthANES POSTPROC EVALon [id number] POSTPROC EVALHNO ID: [id number] Author: Dennis Coulter Service: ? Author Type: Anesthesiologist Type: Anesthesia Postprocedure Evaluation Filed: 05/28/2020 12:32 PM Note Text: POST ANESTHESIA EVALUATION NOTE : 1980 Procedure Summary Date: 05/28/20 Room / Location: SP OR02 / SP OR Anesthesia Start: 1109 Anesthesia Stop: 1138 Procedure: EGD (N/A Abdomen) Diagnosis: Abdominal pain (Abdominal pain [R10.9]) Surgeons: Clemente Johnson Responsible Provider: Dennis Coulter Anesthesia Type: MAC [...] May 28, 2020 TIME: 12:32 PM CSN: [id number]inte Hospital PRE-OPon 05-28-2020 ANES PRE-OPHNO ID: [id number] Author: Dennis Coulter Service: ? Author Type: Anesthesiologist Type: Anesthesia Preprocedure Evaluation Filed: 05/28/2020 11:31 AM Note Text: ANESTHESIOLOGY DAY OF SURGERY NOTE : 1980 Procedure(s) (LRB): EGD (N/A) Surgeon(s): Clemente Johnson Estimated body mass index is 35.51 kg/m? [...] Jejunal Tube, Goal r (more content not included)...[facility] Basic Metabolic Panlon 25-03-2591Wllri gap [Moles/Vol]7 mmol/LNormal0-15 [facility] HospitalCalcium [Mass/Vol]9.1 mg/dLNormal8.5-10.2[facility] HospitalChloride [Moles/Vol]106 mmol/HCsvh06-247Kzhujhurwlu HospitalCO2 [Moles/Vol]29 mmol/DAfzdqw91-90Ivyfuqpfreh HospitalCreatinine [Mass/Vol]0.68 mg/dLNormal0.58-0.96Fre[facility] Cancer InstituteeGFR- Amer.>60NormalShermann area district hospital HospitaleGFR-All Other Races>60NormalShermann area district hospital HospitalComment on above:Result Comment: eGFR (Estimated GFR) Units of measure: [...] the eGFR may not accurately reflect actual GFR.Glucose [Mass/Vol]86 mg/dLNormal 74-99Fre[facility] Cancer InstitutePotassium [Moles/Vol]3.4 mmol/LLow3.7-5.1[facility] HospitalSodium [Moles/Vol]142 mmol/TBcoqed039-760Nojrbgxxqxq HospitalUrea nitrogen [Mass/Vol]6 mg/dLLow7-21Fre[facility] Cancer InstituteCBC and Differentialon 97-16-9598Tuw Baso0.03 k/uLNormal<0.11Fre[facility] Cancer InstituteAbs Mono0.26 k/uL Normal<0.87[facility] Cancer InstituteAbs Neut2.02 k/uLNormal1.45-7.50Fre[facility] Cancer InstituteAbsolute nRBC<0.01Normal<0.01[facility] Cancer InstituteBasophils/100 WBC (Bld) 0.9 %NormalFreeman Cancer InstituteDTYPEAuto DiffNormalSPutnam County Memorial Hospital Eosinophils (Bld) [#/Vol]0.06 10*3/uLNormal<0.46[facility] Eosinophils/100 WBC (Bld)1.8 %NormalFreeman Cancer InstituteErythrocyte distribution width (RBC) [Ratio]13.4 %Gkmoxn82.5-15.0Fre[facility] Cancer InstituteHematocrit (Bld) [Volume fraction]26.2 %Low36.0-46.0Fre[facility] Cancer InstituteHemoglobin (Bld) [Mass/Vol]8.2 g/dLLow11.5-15.5[facility] HospitalLymphocytes (Bld) [#/Vol]0.97 10*3/uLLow1.00-4.00Fre[facility] Cancer InstituteLymphocytes/100 WBC (Bld)29.0 %Normal [facility] Cancer InstituteMCH27.8 aYCuahmi89.0-34.0Fre[facility] Cancer InstituteMCHC (RBC) [Mass/Vol]31.3 g/jNPiemfk36.5-36.0[facility] Cancer InstituteMCV (RBC) [Entitic vol] 88.8 qDLbnwqy13.0-100.0[facility] Cancer InstituteMonocytes/100 WBC (Bld)7.8 %Normal [facility] InstituteNeutrophils/100 WBC (Bld)60.5 %[facility] NRBCs0.0 /100 JINJgnpzt6Znwondzyjui HospitalPlatelet mean volume (Bld) [Entitic vol]10.7 fLNormal9.0-12.7[facility] HospitalPlatelets (Bld) [#/Vol]157 10*3/uL Zhnfqg865-293Vzvjeccnhzk HospitalRBC (Bld) [#/Vol]2.95 10*6/uLLow3.90-5.20 [facility] Cancer InstituteWBC (Bld) [#/Vol]3.34 10*3/uLLow3.70-11.00Fre[facility] Cancer InstituteNURSING PROGon [id number] PRORADHA ID: [id number] Author: Leander (Rn) Sivakumar RN Service: ? Author Type: Registered Nurse Type: Nursing Progress Note Filed: 05/29/2020 8:02 AM Note Text: Nursing Progress Note Patient Name: Maricarmen Anderson Patient Location: ME/ ME Daily Note: 1929 Report received from LAURYN Ho and barry and care of pt assumed 1944 Safety check performed 2117 Pt assessment completed and pt medicated appropriately 199 Pt is asleep with no signs of distress at this time. Call bagley in reach 729 Report given to LAURYN Mcdonough/Radu This note was completed by: Leander Shaver, LAURYNCrittenton Behavioral Health HNO ID: [id number] Author: Albania VasquezRn) LAURYN King Service: ? Author Type: Registered Nurse Type: Nursing Progress Note Filed: 05/28/2020 12:43 PM Note Text: Nursing Progress Note Patient Name: Maricarmen Anderson Patient Location: SP SURGERY CTR POOL/ SURG CTR PO* Daily Note: Verbal order from Dr. Gold for fentanyl and zofran IV for patient's pain and nausea. This note was completed by: ALBANIA King, LAURYNDoctors [facility] NURSING PRONO ID: [id number] Author: Georgia VasquezRnNorth Mcnair RN Service: Nursing Author Type: Registered Nurse Type: Nursing Progress Note Filed: 05/28/2020 5:11 PM Note Text: Nursing Progress Note Patient Name: Maricarmen Anderson Patient Location: / ME Daily Note: 0700 Report received from LAURYN Goodrich. Care assumed. [...] PTAs. This note was completed by: Georgia Mcnair, LAURYNNormalSBarnes-Jewish West County [facility] and Differentialon 21-11-6674Uzy Baso<0.03Normal<0.11Fre[facility] Cancer InstituteAbs [place] 0.29 k/uLNormal<0.87[facility] Cancer InstituteAbs Neut2.00 k/uLNormal1.45-7.50 [facility] InstituteAbsolute nRBC<0.01Normal<0.01[facility] Basophils/100 WBC (Bld)0.3 %[facility] SpringfieldDTYPEAuto DiffNormal Freeman Cancer InstituteEosinophils (Bld) [#/Vol]0.08 10*3/uLNormal<0.46Fre[facility] Cancer InstituteEosinophils/100 WBC (Bld)2.2 %[facility] SpringfieldErythrocyte distribution width (RBC) [Ratio]13.6 %Zzwsfm89.5-15.0[facility] Hematocrit (Bld) [Volume fraction]25.7 %Low36.0-46.0[facility] Hemoglobin (Bld) [Mass/Vol]8.0 g/dLLow11.5-15.5SPutnam County Memorial HospitalLymphocytes (Bld) [#/Vol]1.34 10*3/uLNormal1.00-4.00[facility] Cancer InstituteLymphocytes/100 WBC (Bld)36.0 %NormalFreeman Cancer InstituteMCH27.9 nXNxpgxj21.0-34.0[facility] HospitalHC (RBC) [Mass/Vol]31.1 g/hWSvdbxp41.5-36.0[facility] Cancer InstituteMCV (RBC) [Entitic vol]89.5 gKFzipgt90.0-100.0[facility] InstituteMonocytes/100 WBC (Bld)7.8 %NormalFreeman Cancer InstituteNeutrophils/100 WBC (Bld)53.7 %Normal [facility] InstituteNRBCs0.0 /100 FAUIyralo5Ipukrgqject HospitalPlatelet mean volume (Bld) [Entitic vol]10.6 fLNormal9.0-12.7Fre[facility] Cancer InstitutePlatelets (Bld) [#/Vol]150 10*3/eTRrueyh178-150Pnhsmdtjnhl HospitalRBC (Bld) [#/Vol]2.87 10*6/uLLow3.90-5.20SoutBothwell Regional Health CenterWBC (Bld) [#/Vol]3.72 10*3/uLNormal 3.70-11.00Fre[facility] Cancer InstituteCT KIDNEY WO/W IVCONon [id number] KIDNEY WO/W IVCON* * *Final Report* * * DATE OF EXAM: May 27 2020 12:32PM [facility] 0546 - CT KIDNEY [...] hypoventilatory changes in the dependent lung bases. Internal Investigator (topogram) images: No additional findings. IMPRESSION: Hypodense [...] MD on May 27 2020 1:14PM EST [id number]. Louis VA Medical Center Metabolic Panelon 63-31-5593Ncmujvc [Mass/Vol]3.4 g/dLLow3.5-5.0SoLakeland Regional HospitalALP [Catalytic activity/Vol]73 U/AKvndna04-986Lskhjzdfoux HospitalALT [Catalytic activity/Vol] U/LLow7-38[facility] HospitalAnion gap [Moles/Vol]12 mmol/LNormal0-15 [facility] HospitalAST [Catalytic activity/Vol]15 U/YHgybzl23-38Rymysjjwsgw HospitalBilirubin [Mass/Vol]0.3 mg/dLNormal0.2-1.3Soutsaint monica's homee HospitalCalcium [Mass/Vol]8.8 mg/dLNormal8.5-10.2[facility] HospitalChloride [Moles/Vol]106 mmol/CAjug18-401Pcwjevnkqwb HospitalCO2 [Moles/Vol]24 mmol/KJhdyno31-57 [facility] HospitalCreatinine [Mass/Vol]0.70 mg/dLNormal0.58-0.96[facility] HospitaleGFR- Amer.>60NormalSoutrappahannock general hospital HospitaleGFR-All Other Races>60 NormalSolakeland regional hospital HospitalComment on above:Result Comment: eGFR (Estimated GFR) Units of measure: [...] the eGFR may not accurately reflect actual GFR.Glucose [Mass/Vol]99 mg/dLNormal 74-99[facility] HospitalPotassium [Moles/Vol]3.6 mmol/LLow3.7-5.1[facility] HospitalProtein [Mass/Vol]5.7 g/dLLow6.3-8.0[facility] HospitalSodium [Moles/Vol]142 mmol/QLyuypg885-441Wldhsusjlor HospitalUrea nitrogen [Mass/Vol]5 mg/dLLow7-21[facility] HospitalNURSING PROGon [id number] PROEFRANO ID: [id number] Author: Tacho (Rn) LAURYN Marr Service: ? [...] chart. 2116 Ordered medications given, see eMAR. 2140 Paged general surgery: 721-2, Ungerer- Patient has loraine farms peptide 1.5 ordered, this is not supplied at [facility]. [place] 1.0 is at bedside, is this okay to use in place? Please advise. Thanks, [place] @ [phone] Tube feed held per orders for EGD, 05/28. This note was completed by: Tacho Marr RNMissouri Baptist Hospital-Sullivan ID: [id number] Author: Bibi (Rn) LAURYN Freeman Service: Nursing Author Type: Registered Nurse Type: Nursing Progress Note Filed: 05/27/2020 7:25 PM Note Text: Nursing Progress Note Patient Name: Maricarmen Anderson Patient Location: / [place] Daily Note:0724am updates from college coach nurse. Iv fluids at 50ml/hr per pt's [...] will arrive from dietary. 1925pm updates to college coach nurse. This note was completed by: Bibi Freeman, RNNormalSPutnam County Memorial HospitalCBC and Differentialon 22-73-2315Rho Baso<0.03Normal<0.11[facility] Cancer InstituteAbs Mono0.32 k/uLNormal<0.87[facility] Cancer InstituteAbs Neut1.63 k/uLNormal1.45-7.50 [facility] InstituteAbsolute nRBC<0.01Normal<0.01[facility] Basophils/100 WBC (Bld)0.5 %NormalFreeman Cancer InstituteDTYPEAuto DiffNormal [facility] Cancer InstituteEosinophils (Bld) [#/Vol]0.07 10*3/uLNormal<0.46[facility] Cancer InstituteEosinophils/100 WBC (Bld)1.8 %[facility] SpringfieldErythrocyte distribution width (RBC) [Ratio]13.6 %Orhmth60.5-15.0[facility] Hematocrit (Bld) [Volume fraction]27.2 %Low36.0-46.0[facility] Hemoglobin (Bld) [Mass/Vol]8.5 g/dLLow11.5-15.5SPutnam County Memorial HospitalLymphocytes (Bld) [#/Vol]1.85 10*3/uLNormal1.00-4.00[facility] Cancer InstituteLymphocytes/100 WBC (Bld)47.4 %NormalFreeman Cancer InstituteMCH27.7 xZRgieri27.0-34.0[facility] HospitalHC (RBC) [Mass/Vol]31.3 g/lKOqcorc51.5-36.0[facility] InstituteMCV (RBC) [Entitic vol]88.6 zBQofmwj77.0-100.0[facility] HospitalMonocytes/100 WBC (Bld)8.2 %NormalSsm Depaul Health Center HospitalNeutrophils/100 WBC (Bld)42.1 %Normal [facility] InstituteNRBCs0.0 /100 NBMZjnpfc4Xqeixpkgmal HospitalPlatelet mean volume (Bld) [Entitic vol]10.4 fLNormal9.0-12.7[facility] HospitalPlatelets (Bld) [#/Vol]150 10*3/lRRmbiiu904-730Tbreygqebkq HospitalRBC (Bld) [#/Vol]3.07 10*6/uLLow3.90-5.20Southpoint HospitalWBC (Bld) [#/Vol]3.90 10*3/uLNormal 3.70-11.00Fre[facility] Cancer InstituteCONSULT PROn [id number] PRONO ID: [id number] Author: Raleigh Srivastava DO Service: General Surgery Author Type: Resident Type: Consult Progress Note Filed: 05/26/2020 5:55 AM Note Text: Attestation signed by Clemente Johnson at 05/26/2020 2:57 PM Attending Note I evaluated the patient and personally participated in the edward components. I agree with the resident's findings and plan as documented and have discussed the case and management of the patient's care with the resident. Signature: Clemente Johnson MD Date: 05/26/2020 Time: 2:57 PM PROGRESS NOTES - GENERAL SURGERY PATIENT [...] 64 years) (PF) 0.5 mL injection (FLUZONE 2020-21) 0.5 mL INTRAMUSCULAR ONCE (IMMUNIZATION) - keTORolac [...] Srivastava DO Pager: DATE: 05/26/2020 TIME: 5:50 [facility]CT [facility]/PEL W IVCONon 84-17-6992ML ABD/PEL W IVCON* * *Final Report* * * DATE OF EXAM: May 26 2020 12:43PM [facility] [place] [facility] 0530 - CT ABD/PEL [...] atelectasis. Partially visualized electrodes in the heart. Internal Investigator (topogram) images: No additional findings. IMPRESSION: No [...] CT. ACTIONABLE RESULT: FOLLOW-UP Acuity: Actionable Findings: Kidneys/Ureters/Bladder/Adrenal Routing Code: GU_1 Recommendation: MRI KIDNEY WO/W IVCON TimeFrame: non-urgent, but prompt follow-up. COMMUNICATION: Results will be communicated with the ordering provider via [employer] staff message by Imaging Support Services within 2 business days of report finalization. Algorithms for management of incidental imaging findings can be found on the [facility] Intranet Sharepoint site at: [email or web address]%20Findi ngs%20at%20Imaging/Forms/AllItems.aspx Transcribed Using Voice Recognition Transcribe Date/Time: May 26 2020 12:59P Dictated by: ANIKET SIERRA MD This examination was interpreted and the report reviewed and electronically signed by: ANIKET SIERRA MD on May 26 2020 1:24PM EST [id number] ACTIONABLEInvalid Interpretation CodeSoutrappahannock general hospital HospitalComp Metabolic Panelon 69-58-8144Snopiyz [Mass/Vol]3.6 g/dLNormal3.5-5.0[facility] HospitalALP [Catalytic activity/Vol]79 U/PVzqimm35-542Wgutprrnvum HospitalALT [Catalytic activity/Vol]6 U/LLow7-38[facility] HospitalAnion gap [Moles/Vol]8 mmol/LNormal 0-15[facility] HospitalAST [Catalytic activity/Vol]13 U/HNrrkec45-93Iypfztnfkos HospitalBilirubin [Mass/Vol]0.4 mg/dLNormal0.2-1.3[facility] HospitalCalcium [Mass/Vol]9.0 mg/dLNormal8.5-10.2[facility] HospitalChloride [Moles/Vol]106 mmol/EJagf09-882Mjxancsokyb HospitalCO2 [Moles/Vol]28 mmol/OZdmwkl71-61 [facility] HospitalCreatinine [Mass/Vol]0.68 mg/dLNormal0.58-0.96[facility] HospitaleGFR- Amer.>60NormalSoutsaint monica's homee HospitaleGFR-All Other Races>60 NormalSouthcranberry townshipe HospitalComment on above:Result Comment: eGFR (Estimated GFR) Units of measure: mL/min/1.73 meters squared eGFR is derived from the reexpressed MDRD Study equation using the following parameters: serum creatinine, age, gender and race. The creatinine assay has been calibrated to be traceable to IDSD. An eGFR <60 mL/min/1.73m2 for >3 months is consistent with chronic kidney disease. Refer to KDOQI guidelines for clinical interpretation. In patients with unstable renal function, e.g. those with acute kidney injury, the eGFR may not accurately reflect actual GFR.Glucose [Mass/Vol]98 mg/dLNormal 74-99[facility] HospitalPotassium [Moles/Vol]3.5 mmol/LLow3.7-5.1[facility] HospitalProtein [Mass/Vol]6.1 g/dLLow6.3-8.0[facility] HospitalSodium [Moles/Vol]142 mmol/BTrestg985-899Nodwvnldfpy HospitalUrea nitrogen [Mass/Vol]8 mg/dLNormal7-21[facility] HospitalCoronavirus 2019on 83-72-7686WOFD-CoV-2 (COVID-19) RNA CRISTINA+probe Ql (Unsp spec)Nasopharyngeal SwabNormalSPutnam County Memorial HospitalComment on above:Performed By: #### COVID ####[facility] [place], [place] [id number]-SfN-2 (COVID- 19) RNA CRISTINA+probe Ql (Unsp spec)NegativeNormalNegative for COVID19 (SARS CoV2) by PCR.[facility] Cancer InstituteComment on above:Result Comment: This test was developed and its performance characteristics determined by [facility]'s Doug Mcnam[facility] Pathology and Laboratory Medicine [place]. This test has been authorized by FDA under an Emergency Use Authorization (EUA). This test has been validated in accordance with the FDA's Guidance Document Policy for DiagnosticsTesting in Laboratories Certified to Perform High Complexity Testing under CLIA prior to Emergency use Authorization for Coronavirus Disease 2019 during the Public Health Emergency issued on August 20, 2019.Performed By: #### COVID ####[facility] [place], [place] [phone], Serumon 95-69-0164Pjlvlj [Mass/Vol] 5.7 ng/mLNormal>4.7[facility] Cancer InstituteComment on above:Performed By: #### PTHI, VITD, B1WB ####[address] [phone] A1con 82-26-2965Nfozokn [Mass/Vol]114 mg/dLNormal [facility] Cancer InstituteComment on above:Result Comment: eAG: (Estimated average glucose) is a calculated value from HgbA1c and is pharmaceutical sales representative of the average blood glucose level in the last 2-3 month period.Performed By: #### PREALB, TRANSF #### [place] [phone] (Bld) [Mass fraction]5.6 %Normal4.3-5.6[facility] Comment on above:Result Comment: [place] [employer] guidelines indicate that patients with HgbA1c in the range 5.7-6.4% are at increased risk for development of diabetes, and intervention by lifestyle modification may be beneficial. HgbA1c greater or equal to 6.5% is considered diagnostic of diabetes.Performed By: #### PREALB, TRANSF #### [place] [address] [place] [address] [address] and TIBCon 55-77-1155Rxtj [Mass/Vol]20 ug/xEXeg22-913 [facility] Cancer InstituteComment on above:Performed By: #### PTHI, VITD, B1WB ####[place] [address] [address] [place], [phone] MLJO508 ug/yDAqreux381-836Fnezkhtxtnv HospitalComment on above:Performed By: #### PTHI, VITD, B1WB ####[place] [address] [address] [place], [phone] Saturatn6 %Ujo94-23Cttdwtjyetu HospitalComment on above:Performed By: #### PTHI, VITD, B1WB ####[place] [address] [place] [facility], [phone] 05-26-2020 Lipase [Catalytic activity/Vol]112 U/TZfqb96-67Pratphzxqnm HospitalLipid Panel, Basicon 80-37-7797Eaacsakxdxt [Mass/Vol]188 mg/dLNormal<200[facility] Comment on above:Result Comment: <200 mg/dL, Desirable 200-239 mg/dL, Borderline high >239 mg/dL, HighPerformed By: #### PTHI VITD, B1WB ####[place] [id number] AveCleveldav[facility], [phone] in HDL [Mass/Vol]57 mg/dLNormal>39[facility] InstituteComment on above:Result Comment: 40-59 mg/dL, Acceptable >59 mg/dL, High: Negative risk factor for coronary heart disease <40 mg/dL, Low: Positive risk factor for coronary heart diseasePerformed By: #### PTHPRATIK Lazar, B1WB ####[place] [address] [address]Cdayton [facility], [phone] in LDL [Mass/Vol]113 mg/dLHigh<100[facility] InstituteComment on above:Result Comment: <100 mg/dL, Optimal 100-129 mg/dL, Near optimal/above optimal 130-159 mg/dL, Borderline high 160-189 mg/dL, High >189 mg/dL, Very high Secondary prevention optimal LDL Cholesterol levels are recommended to be < 70 mg/dLPerformed By: #### PTHI, VITD, B1WB ####[facility] X[address]tezwnorrp[address] Pierce AveCdayton children's hospital, [phone] TimeBloodNoCarondelet HealthComment on above:Performed By: #### PTHZenon VITD, B1WB ####[facility] Ohgwhzdkhokv[address] AveCleveland, [phone]:HDL Ratio 1.98Normal<2.54[facility] HospitalComment on above:Result Comment: Reference: 1. National Cholesterol Education Program ATP III Guideline At-A-Glance Quick Desk Reference: National Heart, Lung, and Blood [place]. National Institutes of Health. 2001: NIH Publication No. 01-3305. 2. An International Atherosclerosis Society position paper: global recommendations for the management of dyslipidemia: executive summary, Atherosclerosis. 2014: 232(2):410-413.Performed By: #### PTHI, VITD, B1WB ####[place] [address] [address]Matthew [place] [phone] Non HDL Rfpggzimmgh547 mg/dLHigh<130[facility] HospitalComment on above: Performed By: #### PTHI, VITD, B1WB ####[place] [address] [address]Matthew [place] [phone]:HDL Ratio3.30Normal<5.10[facility] HospitalComment on above:Performed By: #### PTHI, VITD, B1WB ####[place] [address] [address] AvMon[place], [phone] [Mass/Vol]88 mg/dLNormal<150[facility] HospitalComment on above:Result Comment: <150 mg/dL, Normal 150-199 mg/dL, Borderline high 200-499 mg/dL, High >499 mg/dL, Very highPerformed By: #### PTHI, VITD, B1WB ####[place] [address] [address] [place], [phone] Omwolxkwlkt65 mg/dLNormal<30[facility] HospitalComment on above:Performed By: #### PTHI, VITD, B1WB ####[place] [address] [address], [place] [phone] 24-47-8629Rhkfmvlhs [Mass/Vol]2.0 mg/dLNormal 1.7-2.6[facility] InstituteNURSW[facility] PROGon 95-03-7608EIHMXAZ PROGHNO ID: [id number] Author: Tacho Coffey) LAURYN Marr Service: ? Author Type: Registered Nurse Type: Nursing Progress Note Filed: 05/27/2020 4:29 AM Note Text: Nursing Progress Note Patient Name: Maricarmen Anderson Patient Location: / Daily Note: 1935 Assumed care of patient, received report. Assessment complete, see NPR. 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 [place], [place] [phone] IV fluids reduced to 75 ml/hr will monitor how patient tolerates and notify LIP in AM. 0000 IVF reduced to 50 ml/hr per patient request. 0245 Tube feeding restarted at 10 ml/hr start rate, pt previously was not tolerating feeding. 0400 Pt observed asleep in bed, NAD, IVF and tube feed running. This note was completed by: Tacho Marr RNMissouri Baptist Hospital-Sullivan ID: [id number] Author: Bibi (Rn) LAURYN Freeman Service: Nursing Author Type: Registered Nurse Type: Nursing Progress Note Filed: 05/26/2020 7:34 PM Note Text: Nursing Progress Note Patient Name: Maricarmen Anedrson Patient Location: / Daily Note:0800am report from college coach nurse. Pt awake resting in bed. 0955am dietican rounding at bedside. Tf on hold for ct of abd/pelvis. 1140am dr. johnson has rounded per pt. 1150am covid sent as ordered 1325pm pt delcines on starting tube feeding until ct results available. 1603pm pt awake resting in bed. All blood work collected and sent to lab as ordered. 1934pm report to college coach nurse. This note was completed by: Bibi Freeman RNDoctors [facility] of [facility] NURSING PROGHNO ID: [id number] Author: Rosibel Coffey) LAURYN Bonilla Service: Nursing Author Type: Registered Nurse Type: Nursing Progress Note Filed: 05/26/2020 4:08 AM Note Text: Nursing Progress Note Patient Name: Maricarmen Anderson Patient Location: [facility]/ ME-2 Daily Note: 2226 Nutren 1.5 hung at 20 ml/hr. 0000 Pt states she cannot tolerate tube feed. She is nauseous. Notified residential instructor. OK to hold TF for now. This note was completed by: Paty MartínezCarondelet Health NUTRITIONon 00-52-9665NKQSHPBJNEVI ID: [id number] Author: Molly Tello) Gurpreet Service: Nutrition Therapy [...] Estimated kilocalorie needs: 2040 Calorie Calculation Method: Barrett-St. De Guzman (with activity factor)(1.2 AF) Estimated [...] nausea and vomiting. She is from the [facility]. She did call her surgeon's service and advised her to come to [facility] to be evaluated. Patient does have a J-tube. She is able to flush her J-tube. However, the patient then vomits. She vomits after oral or J-tube feedings. Again, the patient does not have a stomach. She denies blood in the vomit. It is nonbilious. The patient is on Percocet at home. Describes a traumatic brain injury in January and was seen in the [facility]. She is now on prophylactic seizure medications [...] May 26, 2020 TIME: 11:53 AM PAGER: [id number] Medical Center- [place], [facility] Healthcareon 05-26-2020 PTH, Eblovg913 pg/qHNvjx05-29Gqwgdaqrjbp HospitalComment on above:Performed By: #### PTHI, VITD, B1WB ####[facility] [place], [phone] 68-23-2899MEH Qn1.040 m[IU]/LNormal0.270-4.200 [facility] InstituteComment on above:Result Comment: If the patient is , TSH reference range varies by gestational period: First Trimester (weeks 9-12): 0.180-2.990 mcIU/mL Second Trimester: 0.110-3.980 mcIU/mL Third Trimester: 0.480-4.710 mcIU/mL Jordan Brewer et al. A Practical Approach for the Verifications and Determination of Site- and Trimester-Specific Reference Intervals for Thyroid Function tests in . Thyroid, 2019:29:3:412-420.Raffaele E, et al. 2017 Guidelines of the [place] Thyroid Association for the Diagnosis and Management of Thyroid Disease during and the . Thyroid, 2017:27:3:315-389. Performed By: #### PTHI VITD, B1WB ####[phone] B1, Whole Blon 96-97-1413Cxjxaqo B1 (TDP), WB56.6 nmol/LLow84.0-213.0SoLakeland Regional HospitalComment on above:Result Comment: This assay measures the concentration of thiamine diphosphate (TDP), the primary active form of vitamin B1. Approximately 90 percent of vitamin B1 present in whole blood is TDP. Thiamine and thiamine monophosphate, which comprise the remaining 10 percent, are not measured. This test was developed and its performance characteristics determined by [facility]'s [facility] Pathology and Laboratory Medicine [place] ([facility]). It has not been cleared or approved by the FDA. [facility] is regulated under CLIA as qualified to perform high complexity testing. This test is used for clinical purposes. It should not be regarded as investigational or for research.Performed By: #### PTHI VITD, B1WB ####[phone] Vitamin B12on 61-70-3794Nhuofoftw (Vitamin B12) [Mass/Vol]247 pg/mLNormal 232-1245[facility] InstituteComment on above:Performed By: #### PTHI, VITD, B1WB ####[address] [phone] D 25 Hydroxyon 31-80-2652Olemhio D 25 Hydroxy9.6 ng/mL Low31.0-80.0SoLakeland Regional HospitalComment on above:Result Comment: Classification of 25 [place] Vitamin D status: Insufficiency/Moderate Deficiency: < or = 30 ng/mL Sufficiency/Optimal Levels: 31 to 80 ng/mL Toxicity: > 100 ng/mL Test performed by chemiluminescent immunoassay.Performed By: #### PTHI, VITD, B1WB ####[facility] [address] [place], [place] [phone] and Differentialon 20-54-3242Fev Baso0.03 k/uLNormal<0.11 [facility] InstituteAbs Mono0.28 k/uLNormal<0.87[facility] InstituteAbs Neut2.58 k/uLNormal1.45-7.50[facility] InstituteAbsolute nRBC<0.01Normal<0.01[facility] InstituteBasophils/100 WBC (Bld)0.7 %[facility]ctors Hospital of SpringfieldDTYPEAuto Diff NormalSsm [facility] Center HospitalEosinophils (Bld) [#/Vol]0.04 10*3/uLNormal<0.46 [facility] HospitalEosinophils/100 WBC (Bld)1.0 %[facility] Erythrocyte distribution width (RBC) [Ratio]13.4 %Bcllnh37.5-15.0[facility] InstituteHematocrit (Bld) [Volume fraction]26.8 %Low36.0-46.0[facility] Hemoglobin (Bld) [Mass/Vol]8.6 g/dLLow11.5-15.5[facility] HospitalLymphocytes (Bld) [#/Vol]1.08 10*3/uLNormal1.00-4.00[facility] InstituteLymphocytes/100 WBC (Bld)26.9 %[facility] SpringfieldMCH27.7 vKHerusq98.0-34.0[facility] HospitalHC (RBC) [Mass/Vol]32.1 g/dHExrvyq95.5-36.0[facility] InstituteMCV (RBC) [Entitic vol]86.2 fSDoidfi26.0-100.0[facility] InstituteMonocytes/100 WBC (Bld)7.0 %NormalFreeman Cancer InstituteNeutrophils/100 WBC (Bld)64.4 %Normal [facility] InstituteNRBCs0.0 /100 IIKAyjqxl5Oqqolxguply HospitalPlatelet mean volume (Bld) [Entitic vol]10.4 fLNormal9.0-12.7[facility] HospitalPlatelets (Bld) [#/Vol]170 10*3/kYGuaxlp928-139Yjbsgjdvldo HospitalRBC (Bld) [#/Vol]3.11 10*6/uLLow3.90-5.20[facility] HospitalWBC (Bld) [#/Vol]4.02 10*3/uLNormal 3.70-11.00[facility] HospitalCC Profile Ulises SP,MM,EUC For SPT,MMH,EUC use only on 21-61-2248Zvpdm TestVenousNormalSPutnam County Memorial HospitalWkhfotnmHgngknzw4Aqwajm [facility] InstituteBase Excess3 mmol/LNormalS[facility] HospitalComment on above:Result Comment: -2 TO 2Body oqxdiumhbbw20.6 [degF]NormalFreeman Cancer InstituteCalcium [Moles/Vol]1.20 mmol/LNormal1.09-1.30[facility] Hospital Chloride [Moles/Vol]108 mmol/WWalifq01-138Ewryrlmkdig HospitalDeviceNone seen NormalFreeman Cancer InstituteDrawsiteVenousNormalShermann area district hospital HospitalHCO3 (Bld) [Moles/Vol]28 mmol/WPjtf63-87Nkfccugynpz HospitalHemoglobin (Bld) [Mass/Vol]8.6 g/sRUjj47-25Fumavotvbea HospitalLactate [Moles/Vol]1.3 mmol/LNormal0.7-2.5 [facility] Cancer InstitutepCO246 mm QeCsurmv85-99Lbnipnzjmye HospitalpH (Bld)7.40 [pH] Normal7.32-7.42[facility] InstitutepO2BELOW REPORTABLE IGNOJPymgai09-04 [facility] InstitutePotassium [Moles/Vol]3.3 mmol/LLow3.5-5.1[facility] HospitalSodium [Moles/Vol]143 mmol/NEdawcc957-039Sfniiwomypa HospitalCONSULTon 21-60-9614QNWPANVGMY ID: [id number] Author: Raleigh Srivastava DO Service: General Surgery Author Type: Resident Type: Consults Filed: 05/25/2020 6:04 PM Note Text: Attestation signed by Clemente Johnson at 05/26/2020 2:56 PM Attending Note I evaluated the patient and personally participated in the edward components. I agree with the resident's findings and plan as documented and have discussed the case and management of the patient's care with the resident. Signature: Clemente Johnson MD Date: 05/26/2020 Time: 2:56 PM H+P - GENERAL SURGERY PATIENT NAME: Maricarmen Anderson SERVICE DATE: 05/25/2020 SERVICE TIME: 4:31 PM REASON FOR CONSULT: Abdominal pain REQUESTING PHYSICIAN: Dennis Spence DO PRIMARY CARE PHYSICIAN: Viktor Bradford MD ASSESSMENT AND PLAN Nausea, vomiting with [...] had a recent traumatic brain injury in [facility] and is on seizure medications now. PAST MEDICAL HISTORY: PAST MEDICAL HISTORY Diagnosis Date - Acute venous embolism and thrombosis of brachial vein ([facility] 2013 due to IV infiltrate, 2013, also on OCPs - Eosinophilic esophagitis - Gastroparesis - GERD (gastroesophageal reflux disease) - History of gastric bypass complications - Obesity, Class III, BMI 40-49.9 (morbid obesity) ([facility]) - Port-A-Cath in place patients right upper [...] or palpitations GI: See HPI : Negative PATROL JUDGE: Negative for abnormal vaginal bleeding, abnormal vaginal [...] noted Resp: CTA b/l, (more content not included)...NormalSolakeland regional hospital HospitalComp Metabolic Panelon 06-07-7525Dnwhxra [Mass/Vol]3.8 g/dLNormal3.5-5.0[facility] HospitalALP [Catalytic activity/Vol]82 U/MLjkvnh00-537Nttkyafoode HospitalALT [Catalytic activity/Vol]6 U/LLow7-38[facility] HospitalAnion gap [Moles/Vol]10 mmol/LNormal0-15[facility] HospitalAST [Catalytic activity/Vol]14 U/LNormal 13-35[facility] HospitalBilirubin [Mass/Vol]0.3 mg/dLNormal0.2-1.3[facility]pcjw [facility] centere HospitalCalcium [Mass/Vol]8.9 mg/dLNormal8.5-10.2Southpcjw medical centere HospitalChloride [Moles/Vol]107 mmol/LZetr45-849Zbdbhwsogyn HospitalCO2 [Moles/Vol]26 mmol/L Vtdofy55-29Errzcfdithk HospitalCreatinine [Mass/Vol]0.62 mg/dLNormal0.58-0.96 [facility] HospitaleGFR- Amer.>60NormalSoutsaint monica's homee HospitaleGFR-All Other Races>60NormalSoutsaint monica's homee HospitalComment on above:Result Comment: eGFR (Estimated GFR) Units of measure: [...] the eGFR may not accurately reflect actual GFR.Glucose [Mass/Vol]88 mg/dLNormal 74-99[facility] HospitalPotassium [Moles/Vol]3.3 mmol/LLow3.7-5.1[facility] HospitalProtein [Mass/Vol]6.4 g/dLNormal6.3-8.0[facility] HospitalSodium [Moles/Vol]143 mmol/SUpqcpz453-284Ognaqlqutqf HospitalUrea nitrogen [Mass/Vol]10 mg/dLNormal7-21[facility] Cancer InstituteED NOTEon 79-58-2777TE NOTEHNO ID: [id number] Author: Chavo Maravilla RN Service: ? Author Type: Registered Nurse Type: ED Notes Filed: 05/25/2020 6:05 PM Note Text: Pt to the floor with caregiver, in stable condition, in NAD. Pt's infusion running without difficulty and pt belongings at bedside.[facility] NOTEHNO ID: [id number] Author: Chavo Maravilla RN Service: ? Author Type: Registered Nurse Type: ED Notes Filed: 05/25/2020 6:01 PM Note Text: Report given to Ceasar DIEGO, all questions addressed at this time.[facility] NOTEHNO ID: [id number] Author: Chavo Maravilla RN Service: ? Author Type: Registered Nurse Type: ED Notes Filed: 05/25/2020 3:27 PM Note Text: RT notified of CCVBGNoCameron Regional [facility] Center NOTEHNO ID: [id number] Author: Chavo Maravilla RN Service: ? Author Type: Registered Nurse Type: ED Notes Filed: 05/25/2020 6:05 PM Note Text: Dr. Bebe to bedside for assessment. Pt c/o of [...] right chest. Allergies reviewed and allergy band applied.[facility] NOTEHNO ID: [id number] Author: Marycarmen (Rn) LAURYN Hunt Service: ? Author Type: Registered Nurse Type: ED Notes Filed: 05/25/2020 1:50 PM Note Text: Pt given cup to collect urine specimenNoCameron Regional Medical Center NOTEHNO ID: [id number] Author: Flaquita (Medic) Charis Service: General Internal Medicine Author Type: Utility Maintenance Worker and Garbage Truck Dispatcher Type: ED Notes Filed: 05/25/2020 1:43 PM Note Text: Pt states she sometimes has a rapid heart rate when she stands to walk. States she had a pacemaker placed in March 2020 at . EKG performed and [facility]: [id number] Author: Marycarmen (Lauryn) LAURYN Hunt Service: ? Author Type: Registered Nurse Type: ED Notes Filed: 05/25/2020 12:43 PM Note Text: Pt c/o nausea, vomiting, ABD pain for the past 2 weeks. She has a J tube, and when ever she pours liquid into it, she vomits.[facility] NOTEon 68-24-8574AC PROV NOTEHNO ID: [id number] Author: Dennis Spence DO Service: Emergency Medicine [...] nausea and vomiting. She is from the [facility]. She did call her surgeon's service and advised her to come to [facility] to be evaluated. Patient does have a J-tube. She is able to flush her J-tube. However, the patient then vomits. She vomits after oral or J-tube feedings. Again, the patient does not have a stomach. She denies blood in the vomit. It is nonbilious. The patient is on Percocet at home. Describes a traumatic brain injury in January and was seen in the [facility]. She is now on prophylactic seizure medications [...] embolism and thrombosis of brachial vein ([facility]) 2013 due to IV infiltrate, 2013, also on OCPs - Eosinophilic esophagitis - Gastroparesis - GERD (gastroesophageal reflux disease) - History of gastric bypass complications - Obesity, Class III, BMI 40-49.9 (morbid obesity) ([facility]) - Port-A-Cath in place patients right upper [...] Reviewed CRITICAL CARE PROFILE-VE (more content not included)...NormalSouthpointe St. [facility] 90-49-3353PSBHPangjxo:Maricarmen Anderson MRN: Height:5' 6 (1.676 m) Weight:220 [...] 46.0 36.0 Progress Notes (): Marycarmen Hunt, LAURYN, RN 05/25/2020 12:43 PM Signed Pt c/o [...] nausea and vomiting. She is from the [facility]. She did call her surgeon's service and advised her to come to [facility] to be evaluated. Patient does have a J-tube. She is able to flush her J-tube. However, the patient then vomits. She vomits after oral or J-tube feedings. Again, the patient does not have a stomach. She denies blood in the vomit. It is nonbilious. The patient is on Percocet at home. Describes a traumatic brain injury in January and was seen in the [facility]. She is now on prophylactic seizure medications [...] embolism and thrombosis of (more content not included)...Normal [facility] HospitalLipaseon 12-33-5010Lzmnrq [Catalytic activity/Vol]54 U/L Mrxhaq01-93Sulofdvlirb HospitalMagnesiumon 15-31-2595Lhfdlftay [Mass/Vol]1.9 mg/dLNormal1.7-2.6SoLakeland Regional HospitalNURSING PROGon 03-60-3373SQIJHHR PROGHNO ID: [id number] Author: Mitchel Coffey) LAURYN Larry Service: Nursing Author Type: Registered Nurse Type: Nursing Progress Note Filed: 05/25/2020 6:27 PM Note Text: Nursing Progress Note Patient Name: Maricarmen Anderson Patient Location: [facility]/ [place]06-23 1815 patient admitted to room 721-2. Pain reported in upper abdomen 03/31 at this time. Nausea also reported. Calling primary MD for admission orders. Patient has j-tube and uses osmolite when able. No other distress noted at this time. Patient denies SOB or CP. This note was completed by: Jose LoeraScotland County Memorial Hospital ID: [id number] Author: Michelle VasquezRn) LAURYN Zhang Service: Nursing Author Type: Registered Nurse Type: Nursing Progress Note Filed: 05/25/2020 7:14 PM Note Text: Nursing Progress Note Patient Name: Maricarmen Anderson Patient Location: [place]/[address]06-23 Transfer Note: Patient transferred into room/unit 721, bed 2 from ED in stable condition. Actions taken: No further actions taken at this time. Will continue to monitor and check with patient. 1912 Nursing admission database completed; MANAGER INTERNET medication list updated. This note was completed by: Gigi Gonzálessoutheast missouri community treatment centersulema HospitalUrinalysis with Microscopicon 59-32-7309Cmzbujww4+ /HPFCritically abnormalNegative Southpoint HospitalBilirubin, UrineNegativeNormalNegativeSPutnam County Memorial Hospital CastSEE TWUZNSYHjqkvr7Cayyzbcfenu HospitalComment on above:Result Comment: 0 Clarity (U)Slightly CloudyCritically abnormalClearShermann area district hospital HospitalColor (U) YellowNormalYellowSouthpointe HospitalCrystals LM Nom (Urine sed)SEE COMMENT Critically abnormalNegativeShermann area district hospital HospitalComment on above:Result Comment: 3+ Calcium OxalateGlucose Ql (U)NegativeNormalNegativeShermann area district hospital Hospital Hemoglobin/Blood,UrNegativeNormalNegativeSoutrappahannock general hospital HospitalKetones Ql (U)Trace Critically abnormalNegativeShermann area district hospital HospitalLeukestTraceCritically abnormal NegativeSoutrappahannock general hospital HospitalNitrite Ql (U)NegativeNormalNegativeShermann area district hospital HospitalpH (U)6.0 [pH]Normal5.0-8.0[facility] HospitalProtein, UrineNegative NormalNegativeShermann area district hospital ZfulxwarDAC2-9Aoflnw5-7Ryjkbjjrnrr HospitalSpecific [place], Ur1.564Hjegol3.005-1.030[facility] Cancer InstituteUrobilinogen Qn (U)1.0 {José'U}/dLNormal0.2-1.0[facility] InstituteEslzexdiNLH3-9Ntspzr3-6Myeqlfzjpjg HospitalSLEEP CENTER REPORTon 25-43-8182SLHMTPAR[place] [address] SLEEP STUDY REPORT PATIENT NAME: MARICARMEN ANDERSON : 1980 MED REC NO: [id number] ROOM: ACCOUNT NO: [id number] ADMIT DATE: 01/24/2020 PROVIDER: Roseline Mcgowan SLEEP IMPROVEMENT [place] INTERPRETATION OF CLINICAL POLYSOMNOGRAPHY DATE OF STUDY: [...] or depression. 4. Please correlate clinically. ROSELINE MCGOWAN ND/V_TTNER_T Doc#: [id number] CC: Roseline McgowanFairfield [facility] Center Metabolic Panlon 01-02-2020 Anion gap [Moles/Vol]5 mmol/LNormal0-15[facility] InstituteCalcium [Mass/Vol]9.2 mg/dLNormal8.5-10.2SPutnam County Memorial HospitalChloride [Moles/Vol]106 mmol/BPpyc25-843 [facility] InstituteCO2 [Moles/Vol]26 mmol/HRcawlk77-01Rqrjadsetdt Hospital Creatinine [Mass/Vol]0.81 mg/dLNormal0.58-0.96[facility] InstituteGlucose [Mass/Vol]106 mg/nVSrhm07-61Vpzfnjlltjp HospitalPotassium [Moles/Vol]3.8 mmol/L Normal3.7-5.1[facility] HospitalSodium [Moles/Vol]137 mmol/IDjjnlq553-175 [facility] InstituteUrea nitrogen [Mass/Vol]9 mg/dLNormal7-21[facility] InstituteCASE MANAGEMon 76-31-4418VAOD MANAGEMHNO ID: [id number] Author: Anaid (Rn) LAURYN Valencia Service: ? Author Type: Registered Nurse Type: Care Mgt Progress Note Filed: 01/02/2020 1:17 PM Note Text: CARE MANAGEMENT DISCHARGE NOTE SERVICE DATE: 01/02/2020 SERVICE TIME: 1315 LOS: 0 days Admission Date: 12/30/2019 DISCHARGE ARRANGEMENT (list agency and phone number) Discharge Arrangement: Home;Home Care pharmacy Provider Name: Dr Clemente Johnson CAREGIVER ASSESSMENT: Caregiver is ready, willing and able to meet the patient's needs as recommended by the inter-professional team:: No Caregiver needed Does the patient have an acute stroke diagnosis, or has the patient had a stroke during this admission?: No HANDOFF COMMUNICATION: Handoff to: Other Caregiver Primary Care Physician Name/Phone: Dr. Bradford Other Caregiver Name/Phone: [facility] TRANSPORTATION ARRANGEMENTS: Transportation Arrangements: Car ADDITIONAL CONTACT RESOURCES: None Patient surgically cleared for discharge and being discharged to home today on enteral tube feedings. [facility] updated and orders to resume tube feedings sent. SIGNATURE: Anaid Valencia RN PATIENT NAME: Maricarmen Anderson DATE: January 02, 2020 TIME: 1:14 PM PAGER/CONTACT #: [phone] Fischel [facility] Center 01-02-2020 CNDSHNO ID: [id number] Author: Clemente Johnson Service: General Surgery Author Type: Physician Type: [...] Out FOLLOW-UP APPOINTMENTS ALREADY SCHEDULED WITH A [facility] PROVIDER: No future appointments. ALLERGIES Allergen Reactions [...] #: DATE: January 02, 2020 TIME: 12:33 [facility] 74-20-3691OEKVWYC PROGHNO ID: [id number] Author: Kimmie VasquezRn) LAURYN Galo Service: Nursing Author Type: Registered Nurse Type: Nursing Progress Note Filed: 01/02/2020 12:27 PM Note Text: Nursing Progress Note Patient Name: Maricarmen Anderson Patient Location: [place] [address] [id number] Daily Note: 729: received report from Silvia DIEGO. Assumed care [...] This note was completed by: Kimmie Galo, RNNormalSPutnam County Memorial Hospital Basic Metabolic Panlon 27-58-2892Rgtng gap [Moles/Vol]6 mmol/LNormal0-15 [facility] InstituteCalcium [Mass/Vol]9.0 mg/dLNormal8.5-10.2SPutnam County Memorial HospitalChloride [Moles/Vol]105 mmol/LLdcpst31-357Slcofsmjjed HospitalCO2 [Moles/Vol]26 mmol/VBqjqon16-06Mcqimxwocec HospitalCreatinine [Mass/Vol]0.73 mg/dLNormal0.58-0.96Fre[facility] InstituteGlucose [Mass/Vol]92 mg/ySBwamdh02-26 [facility] InstitutePotassium [Moles/Vol]3.7 mmol/LNormal3.7-5.1SCox Northodium [Moles/Vol]137 mmol/OWozdmc634-490Ledgsavufkf HospitalUrea nitrogen [Mass/Vol]8 mg/dLNormal7-21SoLakeland Regional HospitalNURSING PROGon 41-15-1967LMUDYWY PROGHNO ID: [id number] Author: Silvia (Rn) LAURYN Marquez Service: ? Author Type: Registered Nurse Type: Nursing Progress Note Filed: 01/02/2020 3:03 AM Note Text: Nursing Progress Note Patient Name: Maricarmen Anderson [facility] [address] [address] Daily Note: 1906: Received report from LAURYN Gaxiola. Patient awake and resting in bed. [...] to monitor This note was completed by: Paty RussellCarondelet Health NURSING [facility] ID: [id number] Author: Khalida VasquezRnNorth Mendes RN Service: Nursing Author Type: Registered Nurse Type: Nursing Progress Note Filed: 01/01/2020 7:23 PM Note Text: Nursing Progress Note Patient Name: Maricarmen Anderson Patient Location: [facility]/ [place] Daily Note: 735 Resumed care for the patient, received updates from Tiny DIEGO. 0745 Tube feed increased to 40 cc/hr. 0915 Assessment unchanged as charted. Safety maintained. 1400 Tube feed increased to 50 cc/hr, patient tolerating them well. 1919 Report given to Silvia DIEGO. This note was completed by: Paty WalkerSaint Mary's Hospital [facility] 38-19-8745EUVDZV HEALTHHNO ID: [id number] Author: Uzair Hurst (Tech) Service: Radiology Author Type: Garbage Truck Dispatcher Type: Allied Health Filed: 12/31/2019 12:47 AM [...] BY: Uzair Hurst December 31, 2019 12:46 AMNormalSolakeland regional hospital HospitalBasic Metabolic Panlon 58-13-6213Epayt gap [Moles/Vol]8 mmol/LNormal0-15[facility] HospitalCalcium [Mass/Vol]8.9 mg/dLNormal8.5-10.2[facility] HospitalChloride [Moles/Vol]105 mmol/ZRhiytj62-131Cyfboyiknic HospitalCO2 [Moles/Vol]25 mmol/VQbqchi38-96 [facility] HospitalCreatinine [Mass/Vol]0.62 mg/dLNormal0.58-0.96[facility] HospitaleGFR- Amer.>60NormalSoutrappahannock general hospital HospitaleGFR-All Other Races>60 NormalSolakeland regional hospital HospitalComment on above:Result Comment: eGFR (Estimated GFR) Units of measure: [...] the eGFR may not accurately reflect actual GFR.Glucose [Mass/Vol]81 mg/dLNormal 74-99[facility] HospitalPotassium [Moles/Vol]3.6 mmol/LLow3.7-5.1Soutsaint monica's homee HospitalSodium [Moles/Vol]138 mmol/LTizmxw655-598Osxwlmipwcd HospitalUrea nitrogen [Mass/Vol]9 mg/dLNormal7-21[facility] HospitalCBCon 57-92-3559Ghxyidld nRBC<0.01Normal<0.01[facility] Cancer InstituteErythrocyte distribution width (RBC) [Ratio]13.2 %Jaazev47.5-15.0[facility] HospitalHematocrit (Bld) [Volume fraction]28.7 %Low36.0-46.0[facility] HospitalHemoglobin (Bld) [Mass/Vol]9.3 g/dLLow11.5-15.5SPutnam County Memorial HospitalMCH29.9 aOUkqqzy42.0-34.0[facility] HospitalHC (RBC) [Mass/Vol]32.4 g/hBJculmf22.5-36.0[facility] Memorial HospitalV (RBC) [Entitic vol]92.3 pRFvgkse55.0-100.0[facility] Cancer InstitutePlatelet mean volume (Bld) [Entitic vol]10.7 fLNormal9.0-12.7Fre[facility] Cancer InstitutePlatelets (Bld) [#/Vol]151 10*3/kTAfaqni008-307Anwxoglgjti HospitalRBC (Bld) [#/Vol]3.11 10*6/uLLow3.90-5.20SPutnam County Memorial HospitalWBC (Bld) [#/Vol]5.08 10*3/uLNormal 3.70-11.00[facility] InstituteCBC and Differentialon 32-37-3537Xxr Baso0.03 k/uL Normal<0.11[facility] Cancer InstituteAbs Mono0.49 k/uLNormal<0.87[facility] Abs Neut3.99 k/uLNormal1.45-7.50[facility] Cancer InstituteAbsolute nRBC<0.01Normal <0.01[facility] Cancer InstituteBasophils/100 WBC (Bld)0.5 %[facility] DTYPEAuto DiffNormalSoutrappahannock general hospital HospitalEosinophils (Bld) [#/Vol]0.04 10*3/uL Normal<0.46Fre[facility] Cancer InstituteEosinophils/100 WBC (Bld)0.6 %[facility] SpringfieldErythrocyte distribution width (RBC) [Ratio]13.1 %Wzerkn18.5-15.0 [facility] HospitalHematocrit (Bld) [Volume fraction]30.3 %Low36.0-46.0 [facility] InstituteHemoglobin (Bld) [Mass/Vol]9.8 g/dLLow11.5-15.5SPutnam County Memorial HospitalLymphocytes (Bld) [#/Vol]1.70 10*3/uLNormal1.00-4.00[facility] Lymphocytes/100 WBC (Bld)27.2 %[facility] SystemH29.6 pGNormal 26.0-34.0[facility] HospitalHC (RBC) [Mass/Vol]32.3 g/oQBrwbcj86.5-36.0 [facility] HospitalV (RBC) [Entitic vol]91.5 pASdfyrt20.0-100.0[facility] InstituteMonocytes/100 WBC (Bld)7.8 %NormalFreeman Cancer InstituteNeutrophils/100 WBC (Bld)63.9 %[facility] SpringfieldNRBCs0.0 /100 LEJQqoliz5Lnqptrqevql HospitalPlatelet mean volume (Bld) [Entitic vol]11.0 fLNormal9.0-12.7[facility] HospitalPlatelets (Bld) [#/Vol]177 10*3/jHXlbgfb802-252Evymrqbdcmu HospitalRBC (Bld) [#/Vol]3.31 10*6/uLLow3.90-5.20SoutBothwell Regional Health CenterWBC (Bld) [#/Vol]6.26 10*3/uLNormal3.70-11.00Fre[facility] Cancer InstituteCT ABD/PEL W IVCONon 08-74-3752DI ABD/PEL W IVCON* * *Final Report* * * DATE OF EXAM: Dec 31 2019 12:49AM [facility] 0530 - CT ABD/PEL [...] MD on Dec 31 2019 1:31AM EST [id number] Cancer InstituteComp Metabolic Panelon 86-89-8554Jkhcqpw [Mass/Vol]3.8 g/dLNormal3.5-5.0[facility] HospitalALP [Catalytic activity/Vol]70 U/OJftzjc28-760Dnoedhnubmj HospitalALT [Catalytic activity/Vol]9 U/LNormal7-38[facility] HospitalAnion gap [Moles/Vol]7 mmol/L Normal0-15[facility] HospitalAST [Catalytic activity/Vol]15 U/STignpw99-42 [facility] HospitalBilirubin [Mass/Vol]0.3 mg/dLNormal0.2-1.3[facility] HospitalCalcium [Mass/Vol]9.1 mg/dLNormal8.5-10.2[facility] HospitalChloride [Moles/Vol]105 mmol/UTrkjuq65-413Wiroojzpgab HospitalCO2 [Moles/Vol]26 mmol/L Opmyeu67-94Hrbxwbwnuro HospitalCreatinine [Mass/Vol]0.60 mg/dLNormal0.58-0.[address] LouisFR- Amer.>60NormalSoutBothwell Regional Health CentereGFR-All Other Races>60NormalSPutnam County Memorial HospitalComment on above:Result Comment: eGFR (Estimated GFR) Units of measure: [...] the eGFR may not accurately reflect actual GFR.Glucose [Mass/Vol]84 mg/dLNormal 74-99[facility] HospitalPotassium [Moles/Vol]3.4 mmol/LLow3.7-5.1[facility] HospitalProtein [Mass/Vol]6.2 g/dLLow6.3-8.0[facility] HospitalSodium [Moles/Vol]138 mmol/XPmnjyg768-981Enxszbfxvkf HospitalUrea nitrogen [Mass/Vol]11 mg/dLNormal7-21[facility] Cancer InstituteCoronavirus 2019on 97-41-2978QPNF-CoV-2 (COVID-19) RNA CRISTINA+probe Ql (Unsp spec)Nasopharyngeal SwabNormSaint Luke's East HospitalComment on above:Performed By: #### PREALB, TRANSF #### [place] [address] KHFG-CoV-2 (COVID-19) RNA CRISTINA+probe Ql (Unsp spec)NegativeNormal Negative for COVID19 (SARS CoV2) by PCR.Freeman Cancer InstituteComment on above: Result Comment: This test was developed and its performance characteristics determined by [facility]'s [facility] [place]. This test has been authorized by FDA under an Emergency Use Authorization (EUA). This test has been validated in accordance with the FDA's Guidance Document Policy for DiagnosticsTesting in Laboratories Certified to Perform High Complexity Testing under CLIA prior to Emergency use Authorization for Coronavirus Disease 2019 during the Public Health Emergency issued on August 20, 2019.Performed By: #### PREALB, TRANSF #### [facility] [address] [place], [place] [address] NW NOTEon 45-95-5667LL NOTEHNO ID: [id number] Author: Paul VasquezRn) LAURYN Culver Service: Emergency Medicine Author Type: Registered Nurse Type: ED Notes Filed: 12/31/2019 12:28 AM Note Text: Patient to CT and then stable for admission to 9th floor, report called to LAURYN Villaseñor. Patient transported with medic, stable at time of transfer from [facility] NOTEHNO ID: [id number] Author: Paul VasquezRn) LAURYN Culver Service: Emergency Medicine Author Type: Registered Nurse Type: ED Notes Filed: 12/30/2019 11:43 PM Note Text: Patient finished contrast, [facility] NOTEHNO ID: [id number] Author: Paul VasquezRn) LAURYN Culver Service: Emergency Medicine Author Type: Registered Nurse Type: ED Notes Filed: 12/30/2019 10:55 PM Note Text: Urine obtained and sentDoctors Hospital of SpringfieldED NOTEHNO ID: [id number] Author: Paul VasquezRn) LAURYN Culver Service: Emergency Medicine Author Type: Registered Nurse Type: ED Notes Filed: 12/30/2019 10:55 PM Note Text: Covid swab obtained, placed on ice and walked to lab by [facility] PROV NOTEon 20-25-3540FU PROV NOTEHNO ID: [id number] Author: Milton Kate MD Service: Emergency Medicine [...] Told to go to ED by Dr. Johnson's nurse. PAST MEDICAL HISTORY Diagnosis Date - Acute venous embolism and thrombosis of brachial vein ([facility]) 2013 due to IV infiltrate, 2013, also on OCPs - Eosinophilic esophagitis - Gastroparesis - GERD (gastroesophageal reflux disease) - History of gastric bypass complications - Obesity, Class III, BMI 40-49.9 (morbid obesity) ([facility]) - Port-A-Cath in place patients right upper [...] in stable condition to service of Dr. Johnson. No acute process seen on CT. Disposition The patient was discharged and admitted. Counseled patient regarding lab results, radiology results and suspected diagnosis. As well as the need for follow-up. Discharged home with verbal and written (more content not included)...NormalSoLakeland Regional Hospital Ferritinon 41-42-4849Axoacevy [Mass/Vol]10.5 ng/mLLow14.7-205.1SoutBothwell Regional Health CenterFerritin [Mass/Vol]13.6 ng/mLLow14.7-205.1SPutnam County Memorial HospitalComment on above:Performed By: #### PREALB, TRANSF #### [facility] [address] [place], [place] [address]HISTORY PHYSICALon [id number] PHYSICALHNO ID: [id number] Author: Raleigh Srivastava DO Service: General Surgery Author Type: Resident Type: HANDP Filed: 12/31/2019 7:01 AM Note Text: Attestation signed by Clemente Johnson at 12/31/2019 2:11 PM Attending Note I evaluated the patient and personally participated in the edward components. I agree with the resident's findings and plan with the following revisions and/or additions: CT-A/P and abdominal exam benign, no signs of obstruciton, IVF, restart TF at low rate, stop carafate, change PPI to daily, appreciate nutrition help. Signature: Clemente Johnson MD Date: 12/31/2019 Time: 2:10 PM H+P - GENERAL SURGERY PATIENT NAME: Maricarmen Anderson SERVICE DATE: 12/31/2019 SERVICE TIME: 1205/am ATTENDING PHYSICIAN: Milton Kate MD PRIMARY CARE PHYSICIAN: Viktor Bradford MD ASSESSMENT AND PLAN Nausea, vomiting with [...] embolism and thrombosis of brachial vein ([facility]) 2013 due to IV infiltrate, 2013, also on OCPs - Eosinophilic esophagitis - Gastroparesis - GERD (gastroesophageal reflux disease) - History of gastric bypass complications - Obesity, Class III, BMI 40-49.9 (morbid obesity) ([facility]) - Port-A-Cath in place patients right upper [...] or palpitations GI: See HPI : Negative PATROL JUDGE: Negative for abnormal vaginal bleeding, abnormal vaginal [...] s1 and s2 no (more content not included)...NormalFreeman Cancer Institute Lipaseon 56-00-6417Tqiuyy [Catalytic activity/Vol]33 U/FIloulz54-06Wktzutpzzfw HospitalMagnesiumon 98-79-3893Mruxvgbhe [Mass/Vol]1.8 mg/dLNormal1.7-2.6 [facility] PROGon 93-52-8248BLHZOQK PROGHNO ID: [id number] Author: Tiny (Rn) LAURYN Chamberlain Service: Nursing Author Type: Registered Nurse Type: Nursing Progress Note Filed: 01/01/2020 3:51 AM Note Text: Nursing Progress Note Patient Name: Maricarmen Anderson Patient Location[place]/ 1919 Received report from prior RN. Patient is in the bed resting with no signs of distress. All personal possessions are within reach. Needs are met at this time. Bed is low and locked. Bed alarm is on. 1920 Requested phenergan from pharmacy. 0000 Tube feed increased to 30 ml/hr 0200 pt sleeping This note was completed by: Paty SoriaSaint Luke's East Hospital ID: [id number] Author: Khalida Mendes RN Service: Nursing Author Type: Registered Nurse Type: Nursing Progress Note Filed: 12/31/2019 7:28 PM Note Text: Nursing Progress Note Patient Name: Maricarmen Anderson Patient [place] Daily Note: 714 Received report from Sheyla DIEGO. 0850 Assessment completed as charted. Patient complains of nausea and pain. Call light within reach and bed in lowest position will continue to monitor. 1100 Diet advanced to full liquids. 1115 Tube feed started. 1730 Tube feed increased to 20 cc/hr. 1924 Report given to Tiny DIEGO. This note was completed by: Paty WalkerSaint Luke's East Hospital ID: [id number] Author: Sheyla Martinez Service: ? Author Type: Registered Nurse Type: Nursing Progress Note Filed: 12/31/2019 5:17 AM Note Text: Nursing Progress Note Patient Name: Maricarmen Anderson Patient Location: [place]/ [place] Transfer Note: Patient transferred into room/unit 906 in stable condition. Actions taken: No futher actions taken at this time. Will continue to monitor and check with patient. Patient belongings with patient This note was completed by: Paty LewisSt. Louis Children's Hospital PRONO ID: [id number] Author: Sheyla Martinez Service: ? Author Type: Registered Nurse Type: Nursing Progress Note Filed: 12/31/2019 5:16 AM Note Text: Nursing Progress Note Patient Name: Maricarmen Anderson Patient Location: [facility]/ [place] Daily Note: 0027 received report from Paul WILSON, patient going to CT before coming to floor 0045 patient on floor 0048assessment complete, see NPR. Patient's belongings, call light are with in reach. Bed is locked and in lowest position. Patient in no distress at this time. This note was completed by: Paty LewisHawthorn Children's Psychiatric Hospital on 60-91-8285UXZYUPWCRTNU ID: [id number] Author: Molly Vázquez Service: Nutrition Therapy Author Type: Registered Dietitian Type: Nutrition Filed: 12/31/2019 11:54 AM Note Text: NUTRITION THERAPY INITIAL ASSESSMENT SERVICE DATE: 12/31/2019 SERVICE TIME: 11:52 AM Nutrition Assessment: Recommended Malnutrition Diagnosis: No Malnutrition Identified Nutrition Diagnosis: Problem: Suboptimal protein/energy intake Related to: Inability to consume sufficient nutrients As evidenced by: Patient/family self-report;Nausea;Vomiting Estimated kilocalorie needs: 6471-1887 Calorie Calculation Method: 15-20 kcals/kg Estimated protein needs (grams): 71-89 Grams protein determined by: 1.2-1.5 g/kg;[place] Body Weight Care Plan: Continue current diet [...] of Inflammation: Chronic condition SIGNATURE: Molly Vázquez, MS,RD,LD,[facility] PATIENT NAME: Maricarmen Anderson DATE: December 31, 2019 TIME: 11:51 AM PAGER: [phone] HospitalPhosphoruson 12-31-2019 Phosphate [Mass/Vol]3.7 mg/dLNormal2.7-4.8[facility] HospitalPrealbuminon 51-01-5112Hiqapthqnx [Mass/Vol]20 mg/mGAinhxl90-00Kllujtkrqcz HospitalComment on above:Performed By: #### PREALB, TRANSF #### [facility] [employer] [address] [place] [address] Uqiqwkvfgwgcd 42-34-9915Gdiskizrvxp [Mass/Vol]266 mg/dWZcosza190-259 [facility] InstituteComment on above:Performed By: #### PREALB, TRANSF #### [facility] [employer] [address] [place] [address] Bmjtohfvpm with Microscopicon 78-23-2807Icrcriomh Crystal2+Normal [facility] HospitalBacteria4+ /HPFCritically abnormalNegativeShermann area district hospital HospitalBilirubin, UrineNegativeNormalNegativeSoutrappahannock general hospital HospitalCastSEE OVXSDZZWscxgu6Pizkpykuqmb HospitalComment on above:Result Comment: 0Clarity (U) CloudyCritically abnormalClearShermann area district hospital HospitalColor (U)YellowNormalYellow [facility] HospitalEpithelial cells LM Ql (Urine sed)SEE COMMENTCritically abnormalOccasionalShermann area district hospital HospitalComment on above:Result Comment: 4+ Squamous Epithelial CellsGlucose Ql (U)NegativeNormalNegativeSoutrappahannock general hospital HospitalHemoglobin/Blood,UrNegativeNormalNegativeSoutsaint monica's homee HospitalKetones Ql (U)TraceCritically abnormalNegativeShermann area district hospital HospitalLeukest2+Critically abnormalNegativeSoutrappahannock general hospital HospitalNitrite Ql (U)NegativeNormalNegative [facility] HospitalpH (U)7.0 [pH]Normal5.0-8.0[facility] HospitalProtein, UrineNegativeNormalNegativeSPutnam County Memorial HospitalDdxlvammTEO8-3Ccaazo7-7Tvwrgrkjvfn HospitalSpecific [place], Ur1.145Ajadui2.005-1.030[facility] Urobilinogen Qn (U)1.0 {José'U}/dLNormal0.2-1.0[facility] Cancer InstituteWBC6-10 Critically abnormal0-5[facility] hospital HospitalPROGRESSon 26-60-4715EARESANDBKM ID: [id number] Author: Emelia Baldwin Service: ? Author Type: [...] 6 hours as needed. OBJECTIVE: PHYSICAL EXAM: [facility] 05/18/2019 GENERAL APPEARANCE: Well nourished, well developed, [...] 2019 TIME: 1:00 PM PAGER: Emelia Baldwin MDBaystate Wing Hospitalon [id number] (NSFRVW) MARICARMEN ANDERSON ([id number]) 1980 F T Date Time Provider Department 09/13/19 EMELIA BALDWIN NSFRVW During your visit today, we recorded the following information about you: [facility] 09/13/2019 3:55 PM Signed Patient has been identified by name and date of : Yes Type of form: [facility] Disability Form received via: Fax When form is completed, fax form to fax number provided. 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 Katelynn Joseph Sec 09/27/2019 2:21 PM Addendum Duane, from [facility], called again, last call 09-16-19, what is the status of residential disability forms for patient? 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 Prosecuting Attorney: PSCB Transcribe Date/Time: May 13 2019 12:52P Dictated by : JON OSBORNE MD This examination was interpreted and the report reviewed and electronically signed by: JON OSBORNE MD on May 13 2019 1:16PM EST [id number] Vital Signs Date TimeVital SignValuePerforming PxklexxakLnozmzzb27-45-4933 13:40-0400 Diastolic blood mm[Hg]Viktor Bradford MD Work Phone: [phone])[address]05-29-2025 13:40-0400 Heart rate84 /Perico Bradford MD Work Phone: [phone])[address] [place], [place] [address]105-29-2025 13:40-0400 Respiratory rate16 /Perico Bradford MD Work Phone: [phone])[address] [place], [place] [address]105-29-2025 13:40-0400 SaO2% (BldA) [Mass fraction]98 %Viktor Bradford MD Work Phone: [phone])[address]05-29-2025 13:40-0400 Systolic blood anrsdjbd450 mm[Hg]Viktor Bradford MD Work Phone: [phone])[address]05-29-2025 12:55-0400 Body fcrytbwierm46.3 [degF]Viktor Bradford MD Work Phone: [phone])[address]05-29-2025 12:55-0400 Inhaled oxygen flow rate8 L/minViktor Bradford MD Work Phone: [phone])[address]05-29-2025 09:40-0400 Body yfivsz034.64 cmViktor Bradford MD Work Phone: [phone])[address]05-29-2025 09:40-0400 Body .93 kgViktor Bradford MD Work Phone: [phone])[address]05-19-2025 15:00-0400 Body pobrsx568.64 cmViktor Bradford MD Work Phone: [phone])[address]05-19-2025 15:00-0400 Body mass index (BMI) [Ratio]41.9 kg/f1ApufibViktor Bradford MD Work Phone: [phone])[address] [place], [place] [address]105-19-2025 15:00-0400 Body cnpcpbtmnlo69.5 [degF]Viktor Bradford MD Work Phone: 1([phone])[address] [place], [place] [address]105-19-2025 15:00-0400 Body .93 kgViktor Bradford MD Work Phone: [phone])[address] [place], [place] [address]105-19-2025 15:00-0400 Diastolic blood dbvjappe07 mm[Hg]Viktor Bradford MD Work Phone: 1(115)[address] [place], [place] [address]105-19-2025 15:00-0400 Heart rate75 /minViktor Bradford MD Work Phone: [phone])[address] [place], [place] 9[address]105-19-2025 15:00-0400 SaO2% (BldA) [Mass fraction]99 %Viktor Bradford MD Work Phone: [phone])[address] [place], [place] [address]105-19-2025 15:00-0400 Systolic blood mdqidzcx275 mm[Hg]Viktor Bradford MD Work Phone: 1(500)[address] [place], [place] 9257112-20-2024 09:33-0500 Body aacqib306.64 cmViktor Bradford MD Work Phone: [phone])[address] [place], [place] 9257112-20-2024 09:33-0500 Body mass index (BMI) [Ratio]43.4 kg/k8QlnuxxViktor Bradford MD Work Phone: 1(622)[address] [place], [place] 9257112-20-2024 09:33-0500 Body xozmvn439.01 kgViktor Bradford MD Work Phone: 1(968)[address] [place], [place] 9257112-20-2024 09:33-0500 Diastolic blood vtbjcanv98 mm[Hg]Viktor Bradford MD Work Phone: 1(090)[address] [place], [place] 9257112-20-2024 09:33-0500 Heart rate93 /minViktor Bradford MD Work Phone: [phone])[address]12-20-2024 09:33-0500 Systolic blood mm[Hg]Viktor Bradford MD Work Phone: [phone])[address]05-23-2024 13:23-0400 Body odlnmg870.64 cmMD Viktor Bradford Work Phone: [phone])[address]05-23-2024 13:23-0400 Body mass index (BMI) [Ratio]41.1 kg/m2MD Viktor Bradford Work Phone: [phone])[address]05-23-2024 13:23-0400 Body rvaxjj437.66 kgMD Viktor Bradford Work Phone: [phone])[address]05-23-2024 13:23-0400 Diastolic blood larzdcjr55 mm[Hg]MD Viktor Bradford Work Phone: [phone])[address]05-23-2024 13:23-0400 Heart rate81 /minMD Viktor Bradford Work Phone: [phone])[address]05-23-2024 13:23-0400 Systolic blood kqeofgzr095 mm[Hg]MD Viktor Bradford Work Phone: [phone])78[address]08-02-2023 06:55-0400 Body owjndd872.64 cmMD Viktor Bradford Work Phone: 1(216)[address]08-02-2023 06:55-0400 Body mbdpyi075.86 kgMD Viktor Bradford Work Phone: 1(104)[address]08-01-2023 08:36-0400 Body gqpgvi234.64 cmViktor Bradford Work Phone: 1(729) [phone]-Tqrqd [place] [facility] [address] DO Work Phone: 1(922) 848-737608-01-2023 08:36-0400Body mass index (BMI) [Ratio] 39.06 kg/y2QohpizViktor Bradford Work Phone: 1(490) [phone]-Mstcm [place] [facility] [place] [address] DO Work Phone: [phone] 08:36-0400Body surface area Derived from formula2.17 h3BvrsanViktor Bradford Work Phone: [phone]-Mqkwi [place] [facility] [address] DO Work Phone: 1(717) 325-885808-01-2023 08:36-0400Body .77 kgViktor Bradford Work Phone: [phone]-IhygtLake View Memorial [facility] DO Work Phone: 1(804)[phone] 08:36-0400Diastolic blood pzoehmip33 mm[Hg] Viktor Bradford Work Phone: mp639-0645ZF[facility]bp[facility] DO Work Phone: 1(796) 563-289008-01-2023 08:36-0400Respiratory rate60 /minViktor Bradford Work Phone: mp556-2434SC-[facility]dEssentia Health[facility] DO Work Phone: 1(443)297-74730-510421-17357280-03-8236 08:36-0400Systolic blood gvsaipzj746 mm[Hg] Viktor Bradford Work Phone: mp706-3161LO-IuivhEssentia Healthia [facility] DO Work Phone: 1(154) 373-419306-26-2023 09:00-0400Body gpaehb087.04 kgMD Viktor Bradford Work Phone: [facility]06-26-2023 07:30-0400 Body zuocaidbbrk70.9 [degF]MD Viktor Bradford Work Phone: [facility]06-26-2023 07:30-0400 Diastolic blood xejlyjkc07 mm[Hg]MD Viktor Bradford Work Phone: [facility]06-26-2023 07:30-0400 Heart rate81 /minMD Viktor Bradford Work Phone: [facility]06-26-2023 07:30-0400 SaO2% (BldA) [Mass fraction]100 %MD Viktor Bradford Work Phone: 1(419)[address]06-26-2023 07:30-0400 Systolic blood pkcedlng607 mm[Hg]MD Viktor Bradford Work Phone: 1(268)398[address]06-25-2023 20:18-0400 Respiratory rate16 /minMD Viktor Bradford Work Phone: 1(663)[address] [place], [place] 9257106-23-2023 13:58-0400 Body .64 cmMD Viktor Bradford Work Phone: 1(769)[address] [place], [place] 9257106-22-2023 20:49-0400 Diastolic blood mm[Hg]MD Viktor Bradford Work Phone: 1(197)[address] [place], [place] 9257106-22-2023 20:49-0400 Heart rate70 /minMD Viktor Bradford Work Phone: 1(665)[address] [place], [place] 9257106-22-2023 20:49-0400 Respiratory rate18 /minMD Viktor Bradford Work Phone: 1(030)[address] [place], [place] 9257106-22-2023 20:49-0400 SaO2% (BldA) [Mass fraction]99 %MD Viktor Bradford Work Phone: 1(232)[address] [place], [place] 9257106-22-2023 20:49-0400 Systolic blood orflsocz750 mm[Hg]MD Viktor Bradford Work Phone: 1(837)[address] [place], [place] 9257106-22-2023 17:43-0400 Body rugtyl308.64 cmMD Viktor Bradford Work Phone: 1(738)[address] [place], [place] 9257106-22-2023 17:43-0400 Body lmdjtndyeip50.7 [degF]MD Viktor Bradford Work Phone: 1(028)09[address]06-22-2023 17:43-0400 Body .86 kgMD Viktor Bradford Work Phone: 1(862)520[address]05-13-2023 07:24-0400 Body wcygccolehg97.6 [degF]MD Viktor Bradford Work Phone: 1(768)64[address]05-13-2023 07:24-0400 Diastolic blood mm[Hg]MD Viktor Bradford Work Phone: 1(088)380-[address] [place], [place] 4815005-13-2023 07:24-0400 Heart rate67 /minMD Viktor Bradford Work Phone: 1(322)097[address]05-13-2023 07:24-0400 Respiratory rate16 /minMD Viktor Bradford Work Phone: 1(787)560[address]05-13-2023 07:24-0400 SaO2% (BldA) [Mass fraction]95 %MD Viktor Bradford Work Phone: 1(114)674[address]05-13-2023 07:24-0400 Systolic blood ilsqkzhy282 mm[Hg]MD Viktor Bradford Work Phone: 1(930)15[address]05-12-2023 14:36-0400 Body .64 cmMD Viktor Bradford Work Phone: 1(298)[address]05-09-2023 19:02-0400 Body kjugqn875.67 kgMD Viktor Bradford Work Phone: 1(177)[address]05-09-2023 17:56-0400 Diastolic blood lajoadev69 mm[Hg]MD Viktor Bradford Work Phone: 1(913)64295 [address]05-09-2023 17:56-0400 Heart rate57 /minMD Viktor Bradford Work Phone: 1(979)9[address]05-09-2023 17:56-0400 Respiratory rate16 /minMD Viktor Bradford Work Phone: 1(511)200[address]05-09-2023 17:56-0400 SaO2% (BldA) [Mass fraction]97 %MD Viktor Bradford Work Phone: 1(410)385[address]05-09-2023 17:56-0400 Systolic blood ccwozhwe608 mm[Hg]MD Viktor Bradford Work Phone: 1(113)487[address]05-09-2023 14:47-0400 Body nwfleh549.64 cmMD Viktor Bradford Work Phone: 1(097)461-42[facility]05-09-2023 14:47-0400 Body fskygwlulbh64.8 [degF]MD Viktor Bradford Work Phone: 1(899)224-63[facility]05-09-2023 14:47-0400 Body .25 kgMD Viktor Bradford Work Phone: 1(060)665[facility]74[facility]04-29-2023 19:10-0400 Diastolic blood rvvulsoe50 mm[Hg]MD Viktor Bradford Work Phone: 1(536)80395 [address]04-29-2023 19:10-0400 Heart rate71 /minMD Viktor Bradford Work Phone: 1(042)17195 [address]04-29-2023 19:10-0400 Respiratory rate18 /minMD Viktor Bradford Work Phone: 1(658)16395 [address]04-29-2023 19:10-0400 SaO2% (BldA) [Mass fraction]97 %MD Viktor Bradford Work Phone: 1(658)348[facility]68[facility]04-29-2023 19:10-0400 Systolic blood telsiyru672 mm[Hg]MD Viktor Bradford Work Phone: 1(839)274[address]04-29-2023 16:53-0400 Body jbkypnvzlnp20 [degF]MD Viktor Bradford Work Phone: 1(497)451-45[facility]04-29-2023 16:51-0400 Body exdqek832.64 cmMD Viktor Bradford Work Phone: 1(375)045[address]04-29-2023 16:51-0400 Body okfehv267 kgMD Viktor Bradford Work Phone: 1(266)67[address]04-09-2023 22:35-0400 Diastolic blood iuroergw62 mm[Hg]MD Viktor Bradford Work Phone: 1(959)542-92[facility]04-09-2023 22:35-0400 Heart rate97 /minMD Viktor Bradford Work Phone: 1(246)353-[address] [place], [place] 4815004-09-2023 22:35-0400 Respiratory rate18 /minMD Viktor Bradford Work Phone: 1(077)240-[address] [place], [place] 4815004-09-2023 22:35-0400 SaO2% (BldA) [Mass fraction]96 %MD Viktor Bradford Work Phone: 1(337)684-76[facility]04-09-2023 22:35-0400 Systolic blood mm[Hg]MD Viktor Bradford Work Phone: 1(800)[address]04-09-2023 21:15-0400 Body rfddyepausi041.7 [degF]MD Viktor Bradford Work Phone: 1(940)888[address]04-09-2023 19:07-0400 Body .64 cmMD Viktor Bradford Work Phone: 1(622)324[address]04-09-2023 19:07-0400 Body banlmo570 kgMD Viktor Bradford Work Phone: 1(368)[address] [place], [place] 9257103-19-2023 15:07-0400 Body yhwoeenjzat54.8 [degF]MD Viktor Bradford Work Phone: 1(445)00595 [address]03-19-2023 15:07-0400 Diastolic blood mkebrglo56 mm[Hg]MD Viktor Bradford Work Phone: 1(636)37595 [address]03-19-2023 15:07-0400 Heart rate78 /minMD Viktor Bradford Work Phone: 1(264)297[address]03-19-2023 15:07-0400 SaO2% (BldA) [Mass fraction]96 %MD Viktor Bradford Work Phone: 1(227)995[address]03-19-2023 15:07-0400 Systolic blood uibyyuyb345 mm[Hg]MD Viktor Bradford Work Phone: 1(004)69195 [address]03-19-2023 07:30-0400 Respiratory rate16 /minMD Viktor Bradford Work Phone: 1(362)724[address]03-16-2023 14:15-0400 Body jzcbxy985.64 cmMD Viktor Bradford Work Phone: 1(860)222[facility]49[facility]03-16-2023 02:40-0400 Body bprvud866.13 kgMD Viktor Bradford Work Phone: 1(018)[address] [place], [place] 9257102-22-2023 08:18-0500 Body onxslnvemep44.1 [degF]MD Viktor Bradford Work Phone: 1(465)897[address]02-22-2023 08:18-0500 Diastolic blood myffpdkd86 mm[Hg]MD Viktor Bradford Work Phone: 1(031)14395 [address]02-22-2023 08:18-0500 Heart rate60 /minMD Viktor Bradford Work Phone: 1(916)[address] [place], [place] 9257102-22-2023 08:18-0500 Respiratory rate16 /minMD Viktor Bradford Work Phone: 1(925)[address] [place], [place] 9257102-22-2023 08:18-0500 SaO2% (BldA) [Mass fraction]96 %MD Viktor Bradford Work Phone: 1(260)89395 [address]02-22-2023 08:18-0500 Systolic blood mxwxdifj363 mm[Hg]MD Viktor Bradford Work Phone: 1(437)[address] [place], [place] 9257102-20-2023 21:50-0500 Body chhwax890.64 cmMD Viktor Bradford Work Phone: 1(319)848[address]02-20-2023 21:50-0500 Body bmawjj792.75 kgMD Viktor Bradford Work Phone: 1(169)77[address]02-14-2023 09:27-0500 Body .1 [degF]MD Viktor Bradford Work Phone: 1(812)90295 [address]02-14-2023 09:27-0500 Respiratory rate16 /minMD Viktor Bradford Work Phone: 1(960)748[address]02-14-2023 09:07-0500 Diastolic blood rwnkzqyb37 mm[Hg]MD Viktor Bradford Work Phone: 1(001)669-[address] [place], [place] 4815002-14-2023 09:07-0500 Heart rate83 /minMD Viktor Bradford Work Phone: 1(153)[address] [place], [place] 9257102-14-2023 09:07-0500 Systolic blood qkwlfopq476 mm[Hg]MD Viktor Bradford Work Phone: 1(345)[address] [place], [place] 9257102-14-2023 09:05-0500 Body wkhdei616.64 cmMD Viktor Bradford Work Phone: 1(374)[address] [place], [place] 9257102-14-2023 09:05-0500 Body pburio087.21 kgMD Viktor Bradford Work Phone: 1(504)[address] [place], [place] 9257102-11-2023 12:30-0500 Diastolic blood cbeoichm72 mm[Hg]MD Viktor Bradford Work Phone: 1(535)[address] [place], [place] 9257102-11-2023 12:30-0500 Heart rate68 /minMD Viktor Bradford Work Phone: 1(773)[address] [place], [place] 9257102-11-2023 12:30-0500 Systolic blood llbywmtc110 mm[Hg]MD Viktor Bradford Work Phone: 1(032)[address] [place], [place] 9257102-11-2023 12:15-0500 Respiratory rate18 /minMD Viktor Bradford Work Phone: 1(912)[address] [place], [place] 9257102-11-2023 10:30-0500 Body zhttxrfxgbe94.2 [degF]MD Viktor Bradford Work Phone: 1(561)[address] [place], [place] 9257102-11-2023 08:36-0500 SaO2% (BldA) [Mass fraction]94 %MD Viktor Bradford Work Phone: 1(832)[address] [place], [place] 9257102-10-2023 22:01-0500 Body odtwnk826.64 cmMD Viktor Bradford Work Phone: 1(642)[address] [place], [place] 9257102-10-2023 22:01-0500 Body goxskr976.21 kgMD Viktor Bradford Work Phone: 1(008)[address] [place], [place] 9257101-31-2023 10:12-0500 Body ezngxv179.64 cmViktor Bradford Work Phone: mp734-8816QT-Jxqvs [facility] DO Work Phone: 1(276)[phone]-9574 10:12-0500Body mass index (BMI) [Ratio]41.8 kg/p1FauhjaViktor Bradford Work Phone: mp212-7814JV-Kjpie [facility] DO Work Phone: 1(941)[phone] 10:12-0500Body surface area Derived from formula2.23 f9QpggmoViktor Bradford Work Phone: mp656-6012BU-Nbaht [facility] DO Work Phone: 1(860)[phone] 10:12-0500Body zipsjs179.48 kgViktor Bradford Work Phone: 1(748) 446-9941254-6004QV-Lnihp [facility] DO Work Phone: 1(528)[phone] 10:12-0500Diastolic blood wruzozfu37 mm[Hg] Viktor Bradford Work Phone: 1(503) 119-3350768-4561SD-Vexxw [facility] DO Work Phone: 1(003)450-24935-586824-02836704-59-1509 10:12-0500Heart rate73 /minViktor Bradford Work Phone: mp723-9791YO-Tpboh [facility] DO Work Phone: 1(779)[phone] 10:12-0500Systolic blood kvnuyhgt463 mm[Hg] Viktor Bradford Work Phone: mp649-8029XI-Rfyej [facility] DO Work Phone: 1(466) 592-360201-26-2023 15:30-0500Body .9 [degF]MD Viktor Bradford Work Phone: [facility]01-26-2023 15:30-0500 Diastolic blood reojvqdr69 mm[Hg]MD Viktor Bradford Work Phone: [facility]01-26-2023 15:30-0500 Heart rate78 /minMD Viktor Bradford Work Phone: 1(189)290-91[facility]01-26-2023 15:30-0500 Respiratory rate18 /minMD Viktor Bradford Work Phone: 1(605)12995 [address]01-26-2023 15:30-0500 SaO2% (BldA) [Mass fraction]100 %MD Viktor Bradford Work Phone: 1(340)16395 [address]01-26-2023 15:30-0500 Systolic blood mm[Hg]MD Viktor Bradford Work Phone: 1(345)07495 [address]01-25-2023 16:29-0500 Body lojfrc469.64 cmMD Viktor Bradford Work Phone: 1(582)[address] [place], [place] 9257101-24-2023 13:12-0500 Body .66 kgMD Viktor Bradford Work Phone: 1(577)[address] [place], [place] 9257101-24-2023 10:53-0500 Body yhqhdf713.64 cmMD Viktor Bradford Work Phone: 1(279)31895 [address]01-24-2023 10:53-0500 Body gdbhblzszif04.7 [degF]MD Viktor Bradford Work Phone: 1(921)99395 [address]01-24-2023 10:53-0500 Body kvoltg890.85 kgMD Viktor Bradford Work Phone: 1(546)98995 [address]01-24-2023 10:53-0500 Diastolic blood mckfiteg67 mm[Hg]MD Viktor Bradford Work Phone: 1(221)87095 [address]01-24-2023 10:53-0500 Heart rate72 /minMD Viktor Bradford Work Phone: 1(306)39395 [address]01-24-2023 10:53-0500 Respiratory rate20 /minMD Viktor Bradford Work Phone: 1(278)101-[address] [place], [place] 4815001-24-2023 10:53-0500 SaO2% (BldA) [Mass fraction]98 %MD Viktor Bradford Work Phone: 1(419)483-[address] [place], [place] 4815001-24-2023 10:53-0500 Systolic blood dyabyiir324 mm[Hg]MD Viktor Bradford Work Phone: 1(234)42995 [address]01-18-2023 13:38-0500 Diastolic blood zbereklk02 mm[Hg]MD Viktor Bradford Work Phone: 1(298)[address] [place], [place] 9257101-18-2023 13:38-0500 Heart rate85 /minMD Viktor Bradford Work Phone: 1(228)[address] [place], [place] 9257101-18-2023 13:38-0500 Systolic blood cpshbeoc173 mm[Hg]MD Viktor Bradford Work Phone: 1(748)[address] [place], [place] 9257101-18-2023 11:35-0500 Body ufytsatctmw82.1 [degF]MD Viktor Bradford Work Phone: 1(181)[address] [place], [place] 9257101-18-2023 11:35-0500 Respiratory rate18 /minMD Viktor Bradford Work Phone: 1(326)[address] [place], [place] 9257101-18-2023 11:35-0500 SaO2% (BldA) [Mass fraction]97 %MD Viktor Bradford Work Phone: 1(835)[address] [place], [place] 9257101-05-2023 22:17-0500 Respiratory rate16 /minMD Viktor Bradford Work Phone: 1(289)[address] [place], [place] 9257101-05-2023 21:54-0500 Body duoypcvhxsu96.3 [degF]MD Viktor Bradford Work Phone: 1(888)[address] [place], [place] 9257101-05-2023 21:53-0500 Diastolic blood whvadgcn23 mm[Hg]MD Viktor Bradford Work Phone: 1(872)31695 [address]01-05-2023 21:53-0500 Heart rate83 /minMD Viktor Bradford Work Phone: 1(122)[address] [place], [place] 9257101-05-2023 21:53-0500 Systolic blood ezazbrqy670 mm[Hg]MD Viktor Bradford Work Phone: 1(569)007[address]01-05-2023 21:37-0500 Body pyolbq516.64 cmMD Viktor Bradford Work Phone: 1(683)21695 [address]01-05-2023 21:37-0500 Body fppant880.93 kgMD Viktor Bradford Work Phone: 1(254)127[address]01-04-2023 22:03-0500 Diastolic blood mm[Hg]MD Viktor Bradford Work Phone: 1(778)45195 [address]01-04-2023 22:03-0500 Heart rate90 /minMD Viktor Bradford Work Phone: 1(841)52095 [address]01-04-2023 22:03-0500 Respiratory rate18 /minMD Viktor Bradford Work Phone: 1(770)[address] [place], [place] 9257101-04-2023 22:03-0500 SaO2% (BldA) [Mass fraction]97 %MD Viktor Bradford Work Phone: 1(359)50695 [address]01-04-2023 22:03-0500 Systolic blood ibzxqdgi397 mm[Hg]MD Viktor Bradford Work Phone: 1(137)64495 [address]01-04-2023 17:29-0500 Body ghpmsu022.64 cmMD Viktor Bradford Work Phone: 1(862)40095 [address]01-04-2023 17:29-0500 Body vwdmsearihd21.3 [degF]MD Viktor Bradford Work Phone: 1(190)108[address]01-04-2023 17:29-0500 Body yhuslm850 kgMD Viktor Bradford Work Phone: 1(471)67195 [address]01-04-2023 12:40-0500 Body ijfmskxfssv54.9 [degF]MD Viktor Bradford Work Phone: 1(827)[address]75[address]01-04-2023 12:40-0500 Diastolic blood kpalmvap97 mm[Hg]MD Viktor Bradford Work Phone: 1(665)21295 [address]01-04-2023 12:40-0500 Heart rate66 /minMD Viktor Bradford Work Phone: [facility]01-04-2023 12:40-0500 Respiratory rate18 /minMD Viktor Bradford Work Phone: [facility]01-04-2023 12:40-0500 SaO2% (BldA) [Mass fraction]98 %MD Viktor Bradford Work Phone: [facility]01-04-2023 12:40-0500 Systolic blood rdswrydw535 mm[Hg]MD Viktor Bradford Work Phone: [facility]08-25-2022 07:45-0400 60 1Marcqing Bradford Work Phone: 1(404) [phone]-Gmwfz [facility] [place] Work Phone: Comment on above:[id number] 19:14-0400 Diastolic blood nmefjejf30 mm[Hg]MD Viktor Bradford Work Phone: [facility]08-01-2022 19:14-0400 Heart rate64 /Twila Bradford Work Phone: [facility]08-01-2022 19:14-0400 Respiratory rate18 /minMD Viktor rBadford Work Phone: [facility]08-01-2022 19:14-0400 SaO2% (BldA) [Mass fraction]100 %MD Viktor Bradford Work Phone: 1(558)635-66[facility]08-01-2022 19:14-0400 Systolic blood gcmbfcun595 mm[Hg]MD Viktor Bradford Work Phone: 1(040)397-38[facility]08-01-2022 14:29-0400 Body zqigltxujgc00.4 [degF]MD Viktor Bradford Work Phone: 1(101)502-38[facility]08-01-2022 13:07-0400 Body eldmkh281.64 cmMD Viktor Bradford Work Phone: 1(600)820-31[facility]08-01-2022 13:07-0400 Body kitjhx221.4 kgMD Viktor Bradford Work Phone: [facility]07-26-2022 10:20-0400 Diastolic blood fnpwhumj23 mm[Hg]Viktor Bradford Work Phone: mp505-3992AO-[facility]Gl[facility] [facility] DO Work Phone: 1(739)[phone] 10:20-0400Heart rate65 /minViktor Bradford Work Phone: mp533-6466NW-FwaaxGlacial [facility]-[place] [facility] DO Work Phone: 1(748)[phone] 10:20-0400Systolic blood siokvqul010 mm[Hg] Viktor Bradford Work Phone: mp414-1748OE-MkcewNorth [facility] Healthia [facility] DO Work Phone: 1(905)[phone] 10:19-0400Body cidnvf796.64 cmViktor Bradford Work Phone: 1(481) [phone]-NmvppFederal [facility] Center, [facility] DO Work Phone: 1(620)[phone]-8575 10:19-0400Body mass index (BMI) [Ratio] 36.68 kg/b9TpdcvrViktor Bradford Work Phone: mp141-5138CJ-ChnbuNorth Shore Healthia [facility] DO Work Phone: 1(844)[phone] 10:19-0400Body surface area Derived from formula2.11 p5FyaviwViktor Bradford Work Phone: mp418-5600MH-YxnzzNorth [facility] Healthia [facility] DO Work Phone: 1(578)141-50012-764823-05633253-05-3029 10:19-0400Body iqenui976.08 kgViktor Bradford Work Phone: mp158-8574PM-QhvdqNorth Shore Healthia [facility] DO Work Phone: 1(715)[phone] 07:30-0400Body mxkjyztpjcy10.4 [degF]MD Viktor Bradford Work Phone: [facility]06-22-2022 07:30-0400 Diastolic blood tcpxsqao28 mm[Hg]MD Viktor Bradford Work Phone: [facility]06-22-2022 07:30-0400 Heart rate86 /minMD Viktor Bradford Work Phone: 1(613)005-89[facility]06-22-2022 07:30-0400 Respiratory rate16 /minMD Viktor Bradford Work Phone: 1(938)230-[address] [place], [place] 4815006-22-2022 07:30-0400 SaO2% (BldA) [Mass fraction]95 %MD Viktor Bradford Work Phone: 1(286)015-52[facility]06-22-2022 07:30-0400 Systolic blood jxapjovl786 mm[Hg]MD Viktor Bradford Work Phone: 1(197)228[facility]32[facility]06-21-2022 15:45-0400 Body nthuvy415.64 cmMD Viktor Bradford Work Phone: 1(225)388[address]06-20-2022 14:00-0400 Body mass index (BMI) [Ratio]35.4 kg/m2MD Viktor Bradford Work Phone: 1(619)369[facility]61[facility]06-20-2022 09:00-0400 Body oilrtj44.75 kgMD Viktor Bradford Work Phone: 1(310)507[facility]11[facility]11-09-2021 13:15-0500 Body fjomxl301.64 cmViktor Bradford Work Phone: 1(427)405-425-5445WR-Seznuyjthuiu-[facility] Work Phone: 1(894) 498-767911-09-2021 13:15-0500Body mass index (BMI) [Ratio] 31.47 kg/d6QqgydyViktor Bradford Work Phone: 1(342)641-028-1409TC-Cmvfpypuvgxu-[facility] Work Phone: 1(919) 508-372211-09-2021 13:15-0500Body surface area Derived from formula1.98 j2TkcnctViktor Bradford Work Phone: 1(423)585-780-2118NG-Byyrtbdpyxll-[facility] Work Phone: 1(563) 350-885911-09-2021 13:15-0500Body krezfh83.45 kgViktor Bradford Work Phone: mg912-6595LE-Ifejtdxnobxh-[facility] Work Phone: 1(805) 999-729711-09-2021 13:15-0500Diastolic blood qzyjjyob54 mm[Hg] Viktor Bradford Work Phone: mg336-8011AF-Yhhxygqsaqzt-[facility] Work Phone: 1(397) 739-302911-09-2021 13:15-0500Heart rate70 /minViktor Bradford Work Phone: mg118-6565ME-Aekrnwkslhrx-[facility] Work Phone: 1(495) 448-667411-09-2021 13:15-0500Respiratory rate18 /minViktor Bradford Work Phone: mg941-0318RE-Fwxjwklgrxqa-[facility] Work Phone: 1(800) 937-944111-09-2021 13:15-0500Systolic blood jasxwjft273 mm[Hg] Viktor Bradford Work Phone: mg054-2845GR-Edqilyfuoqrp-[facility] Work Phone: 1(217) 515-880312-04-2020 17:24-6781ZnJ6% (BldA) [Mass fraction]64 % [facility] Hospital Encounters Encounter DateEncounter TypeCare ProviderFacilityStart: 04-10-2025 End: 99-67-6521wnxywhazaqEjfkbeq Vytautas Giedraitis MDFacility:[facility] [place] Start: 40-18-8317mqliozrxvjWpuiwy E BraunFacility:[facility] Centertart: 03-15-2025 End: 98-18-4851klhmzgpppaMCMB J [facility] Start: 03-15-2025 End: 12-28-1984Rjdvrecpcu hospital visit by physicianEly Community Medical CenterComment on above:Pacemaker; Sick sinus syndrome (Multi)Start: 01-02-2025 End: 84-02-7685vbcwwdfqooTykxlnf R WATERSFacility:EU [place]vueStart: 01-02-2025 End: 36-15-3923Xmoiusj encounter procedureJEYEIMI CHUNG [facility] [place] start: 12-07-2024 End: 82-13-6186skwevyrfqfWKAI J [facility] Start: 12-07-2024 End: 09-02-6070Qndodsvcca hospital visit by physicianEly Device RemoteChildren's Hospital Colorado North CampusComment on above:Pacemaker; Sick sinus syndrome (Multi)Start: 33-19-6963Tjp-patient / Non-visitViktor Bradford MD Work Phone: [facility] Work Phone: Start: 11-17-2024 End: 60-90-2402Besmpzkhb to same day surgery centerViktor Bradford MD Work Phone: [facility]Start: 11-17-2024 End: 93-04-1396zvwubzmnbvSdkpoa E Braun MD Work Phone: [facility] Work Phone: Start: 28-84-6359Ydnmygnhnf RecurringViktor Bradford MD Work Phone: [facility]- CredibleStart: 11-07-2024 End: 58-21-4427Knimwif encounter procedureViktor Bradford MD Work Phone: [facility] Vascular Surgery [place] Work Phone: Start: 61-75-0787Vqp-patient / Non-visitViktor Bradford MD Work Phone: [facility] Work Phone: Start: 73-80-8781Dsg-patient / Non-visitViktor Bradford MD Work Phone: [facility] GroupSt[facility] Work Phone: Start: 09-26-2024 End: 34-16-9197ayahpdayibEznsyfjYuval Snell MDFacility:PM [place] Start: 08-31-2024 End: 30-32-6324Hpfxinodcs hospital visit by physicianEly Device [facility] CenterComment on above:Pacemaker; Sick sinus syndrome (Multi)Start: 08-31-2024 End: 35-38-3329Gfervot encounter procedureViktor Bradford MD Work Phone: [facility] [place] Work Phone: Start: 08-31-2024 End: 31-24-6994esmjimhvbxQoglhw E Braun MD Work Phone: [facility] Work Phone: Start: 08-24-2024 End: 97-37-5283motxvsrkeyRrgkrt E BraunFacility:[facility] Centertart: 56-12-9250Sml-patient / Non-visitViktor Bradford MD Work Phone: [facility] Rhythm ClinicStart: 86-11-4807Ywefskfwzu RecurringViktor Bradford MD Work Phone: [facility]- CredibleStart: 07-25-2024 End: 26-58-4965ctwgknrvmtOoirogqYuval Snell MDFacility:[facility] Start: 86-11-7497Kcf-patient / Non-visitViktor Bradford MD Work Phone: [facility] Work Phone: Start: 07-11-2024 End: 91-96-9283kcbbozxpafRxmaytzYuval Snell MDFacility:[facility] Start: 07-05-2024 End: 41-09-9700hjxmzxvwwbVbmtjgo R WATERSFacility:FTMCStart: 07-05-2024 End: 09-54-6071Nnaidxh encounter Anna HAN [facility] Start: 39-12-0135Rpc-patient / Non-visitMarcia Bradford MD Work Phone: [facility] Work Phone: Start: 07-04-2024 End: 58-78-6752Jlutnlk encounter procedureViktor Bradford MD Work Phone: [facility] Scan [facility] [place] Work Phone: Start: 07-04-2024 End: 61-66-0946avpabhbepiUyultu E Braun MD Work Phone: [facility] Work Phone: Start: 06-27-2024 End: 69-70-5787pzsjypvoxhQyooufb Vytautas Giedraitis MDFacility:[facility] Start: 54-87-6894Skaqfozqrp RecurringViktor Bradford MD Work Phone: [facility]- CredibleStart: 06-10-2024 End: 83-57-2480Toaluby encounter procedureViktor Bradford MD Work Phone: [facility] Work Phone: Start: 06-02-2024 End: 39-69-4591ioxspewrrjNDKRIUVJ E PERRYFacility:[facility] BellevueStart: 06-02-2024 End: 46-43-3063Whlulbh encounter procedureJENNIFER E JATIN [facility] [place] start: 62-72-6835Dot-patient / Non-visitViktor Bradford MD Work Phone: [facility] Work Phone: Start: 05-30-2024 End: 62-11-8901Wuhmgwc encounter procedureViktor Bradford MD Work Phone: [facility]-Ultrasound Main [place] Work Phone: Start: 05-30-2024 End: 52-56-8861szoifxnoozOvhnuk Sulema BraunFacility:[facility] Centertart: 05-30-2024 End: 16-83-8940zojrnnkvraXMDMJMQT E PERRYFacility:EU SusanuskyStart: 05-30-2024 End: 19-57-3645Csauynf encounter procedureJENNIFER E JATIN [facility] [place] Start: 05-25-2024 End: 57-25-3275pdafcfpzsxHDTZ J [facility] Start: 05-25-2024 End: 32-37-5851Sckbokemnf hospital visit by physicianEly Device [facility] CenterComment on above:Pacemaker; Sick sinus syndrome (Multi)Start: 05-03-2024 End: 14-37-4159nrljvjxameTYERMYNV E PERRYFacility:EU Colleentart: 05-03-2024 End: 55-49-4605Gbgdtnw encounter procedureJENNIFER E JATIN [facility] start: 02-10-2024 End: 27-69-0507Ouvkeoudgt hospital visit by physicianEly Device [facility] CenterComment on above:Pacemaker; Sick sinus syndrome (Multi)Start: 11-12-2023 End: 15-88-1666geczjwidsxGM Marcia E Braun Work Phone: [facility] Work Phone: Start: 11-12-2023 End: 55-69-0772Woloqxr encounter procedureMD Viktor Bradford Work Phone: [facility] Work Phone: Start: 27-18-8427Xijgalaled RecurringMD Viktor Bradford Work Phone: [facility]: 11-04-2023 End: 99-80-0433Pbkltebyps hospital visit by physicianEly Device [facility] CenterComment on above:Pacemaker; Sick sinus syndrome (Multi)Start: 10-29-2023 End: 57-39-7866Yugxsggrfc and management of inpatientBANNER HEART HOSPITALCIA [facility] Hospitaltart: 31-01-5251Nax-patient / Non-visitMD Viktor Bradford Work Phone: [facility] Work Phone: Start: 56-33-1338Qjo-patient / Non-visitMD Viktor Bradford Work Phone: [facility] Work Phone: Start: 28-13-9972Viu-patient / Non-visitMD Viktor Bradford Work Phone: [facility] Work Phone: Start: 37-01-1289Cux-patient / Non-visitMD Viktor Bradford Work Phone: [facility] Work Phone: Start: 07-29-2023 End: 99-97-1614Emwxslhhqd hospital visit by physicianEly Device [facility] CenterComment on above:Pacemaker; Sick sinus syndrome (CMS/HCC)Start: 04-28-2023 End: 95-61-4126Sndqlly encounter procedureSETELA CHUNG [facility] start: 04-24-2023 End: 11-37-4805Uarhxpkwcc hospital visit by physicianEly Device [facility] CenterComment on above:Pacemaker; Sick sinus syndrome (CMS/HCC)Start: 57-02-5211ztxnaywsuyBmDr. Viktor BradfordFacility:[id number]: 01-21-2023 End: 76-68-5226rkoubfisnnBS Marcia E Braun Work Phone: [facility] Work Phone: Start: 01-21-2023 End: 36-03-9278Fzhhoxk encounter procedureMD Viktor Bradford Work Phone: [facility]-MRI Main [place] Work Phone: Start: 99-37-9007Ksyvzqs tobacco non-user cad cap copd pv dmMarcia Sulema Bradford Work Phone: [phone]-Uigsq [facility] [address] DO Work Phone: Start: 94-82-3913kjavqnloxpBm. Viktor Bradford Facility:[id number]: 26-10-7318vbbaevpwkwYq. Viktor BradfordFacility:[id number] Start: 12-19-2022 End: 71-78-9075vraefpviesMZ Viktor Leone Sanchez Work Phone: [facility] Work Phone: Start: 12-19-2022 End: 15-58-2241Ctpsrxr encounter procedureMD Viktor Bradford Work Phone: [facility]-Pacemaker CheckStart: 12-11-2022 End: 07-40-8515Uesydqesab and management of inpatientMD Viktor Bradford Work Phone: [facility] Work Phone: Start: 12-09-2022 End: 42-71-6922Eevgude encounter procedurePayoung HAN [facility] Start: 19-45-2530Upjkqkwycg RecurringMD Viktor Bradford Work Phone: [facility]-BH CredibleStart: 10-28-2022 End: 42-18-2237Nxuxvjthsl and management of inpatientMD Viktor Bradford Work Phone: [facility] Work Phone: Start: 37-41-2144Oisfcpgzlb RecurringMD Viktor Bradford Work Phone: [facility]- CredibleStart: 62-13-2660vppwutmvpbEgBeatris Viktor Pack SanchezFacility:9507Start: 10-18-2022 End: 42-25-3019Rkmuxvfrq department patient visitMD Viktor Bradford Work Phone: [facility]-Emergency Room Work Phone: Start: 10-16-2022 End: 43-54-9523lilgftdpccCVZGHH RODRIGUEZ .Facility:X5Fxpll: 09-28-2022 End: 67-30-3509Dlonyoghy department patient visitMD Vkitor Bradford Work Phone: [facility]-Emergency Room Work Phone: Start: 09-03-2022 End: 32-08-5748Hkuosxqzul and management of inpatientMD Viktor Bradford Work Phone: [facility]-[address] [place] [address] Work Phone: Start: 09-03-2022 End: 67-47-5295Vwftyod encounter procedureJEYEIMI CHUNG [facility] start: 08-11-2022 End: 39-80-3357Amdusdvxre and management of inpatientMD Viktor Bradford Work Phone: [facility]-3 [facility] Post Work Phone: Start: 08-05-2022 End: 34-75-8671forwvbosvpNV Viktor Bradford Work Phone: [facility] Work Phone: Start: 08-05-2022 End: 63-54-4738Gurgmwk encounter procedureMD Viktor Bradford Work Phone: [facility]-3 East Labor - O/P Start: 08-01-2022 End: 68-25-7252Dhuqttmdwp and management of inpatientMD Viktor Bradford Work Phone: [facility]-3 East Labor and Delivery Work Phone: Start: 07-25-2022 End: 28-65-2242alhkcferpnCL Viktor Leone Sanchez Work Phone: [facility] Work Phone: Start: 07-25-2022 End: 70-70-7390Bjjuhcmv ReferredMD Viktor Bradford Work Phone: [facility]-Lab Main [place] Work Phone: Start: 04-40-0135Znrgrkq tobacco non-user cad cap copd pv dmMarmarielenaharpreet Leone Sanchez Work Phone: [phone]-Blawh [facility] [facility] [address] DO Work Phone: Start: 22-51-4600ribvrmjljoXqBeatris Bradford Facility:9507Start: 07-15-2022 End: 42-64-6436Igmiedysft and management of inpatientMD Viktor Bradford Work Phone: [facility] Work Phone: Start: 07-09-2022 End: 02-97-7279ubrtlupkqrLC Viktor Leone Sanchez Work Phone: [facility] Work Phone: Start: 07-09-2022 End: 29-84-1042Grlrggkkvv RecurringMD Viktor Bradford Work Phone: [facility]-Infusion Therapy - O/P Work Phone: Start: 06-30-2022 End: 48-90-4030cznzqnoqgqWK Viktor Leone Sanchez Work Phone: [facility] Work Phone: Start: 06-30-2022 End: 42-94-4462Vdexdby encounter procedureMD Viktor Sanchez Work Phone: [facility]-Lab Main [place] Work Phone: Start: 06-26-2022 End: 96-83-2086phmcjndgavYT Marcia E Braun Work Phone: [facility] Work Phone: Start: 06-26-2022 End: 83-02-5718Usimmxs encounter procedureMD Viktor Bradford Work Phone: [facility]-3 East Labor - O/P Start: 06-25-2022 End: 81-63-1305Guyceqwnv department patient visitMD Viktor Bradford Work Phone: [facility]-Emergency Room Work Phone: Start: 10-66-4817Iegurjmgbn RecurringMD Viktor Bradford Work Phone: [facility]-Infusion Therapy - O/P Work Phone: Start: 04-28-2022 End: 36-99-9779tnysaoxaymVX MARCIA E BRAUNFacility:F4Udbwk: 78-19-7243zjuygxbfvm Dr. Viktor BradfordFacility:9507Start: 23-79-3214Wgmgb Baylee Bradford Work Phone: [phone]-Vpsqs [facility] [address] DO Work Phone: Start: 17-63-2876Kvflbhr encounter procedureViktor Bradford Work Phone: [phone]-Xgymd [facility] [place] Work Phone: Start: 27-07-7895uzlbnoaqraJhBeatris Bond Ne Facility:[id number]: 01-20-2022 End: 44-68-4214Motojbhre department patient visitMD Viktor Bradford Work Phone: [facility]-Emergency RoomStart: 03-52-4709Kgpicko tobacco non-user cad cap copd pv dmViktor Bradford Work Phone: [phone]-Mhpmx [facility] [address] DO Work Phone: Start: 31-88-2441cofmrgjhtfMyvizaj Allemang MD Work Phone: General SurgeryComment on above:PortStart: 12-16-2021 End: 47-97-0689Qisvoqe encounter procedureMD Viktor Sanchez Work Phone: [facility]-Lab Main CampusStart: 12-08-2021 End: 38-87-7792Gtutxhpicd and management of inpatientMD Viktor Sanchez Work Phone: [facility]-1 SouthStart: 44-79-6319Hbqlmkirg encounterMamay Johnson MD Work Phone: GastroenterologyComment on above:Patient UpdateStart: 92-27-8952Hgpkba ReviewViktor Bradford Work Phone: [phone]-Kmlakfpsyaeu-[facility] Work Phone: start: 34-39-0193Lymrepl tobacco non-user cad cap copd pv dmMarabdulkadir Bradford Work Phone: [phone]-Woocibfhryqy-[facility] Work Phone: start: 14-78-0113Mnraidx encounter procedureViktor Bradford Work Phone: [phone]-Zyizbqibpliya-[facility] [address] Work Phone: Start: 01-24-2020 End: 98-21-2287Hwidmjm encounter procedureNICEDWARD [facility] Start: 01-24-2020 End: 18-14-4114Wdeqftqlms hospital visit by physicianE[facility] Schedule [facility] SLEEP LABComment on above:Arrived Procedures DateProcedureProcedure DetailPerforming ClinicianStart: 17-76-1986Hnijibr venous cannula insertionViktor Bradford MD Work Phone: Start: 13-14-0724Wysbl chest X-rayViktor Bradford MD Work Phone: Start: 66-34-4065RAE of cervical spine without contrastViktor Bradford MD Work Phone: Start: 95-89-4362Jarvjhql tomography of abdomen and pelvis with contrastViktor Bradford MD Work Phone: Start: 96-23-6601Tdkhzmouvgkhdpu of bilateral kidneys Viktor Bradford MD Work Phone: Start: 80-21-0769Wie interrog pm/ldls pm/ids <90 d tech reviewRita Olivia MD Work Phone: Start: 20-24-8890CSZ of abdomen with contrastMD Viktor Bradford Work Phone: Start: 84-27-5581Dcihn chest X-rayMD Viktor Bradford Work Phone: Start: 64-05-2771Anilj cultureMD Viktor Bradford Work Phone: Start: 90-52-8073Prnywcyvqspcgjksy with dilation of urethral strictureJENNIFER JATIN Start: 65-10-2500Uncym cultureMD Viktor Bradford Work Phone: Start: 54-25-0445TQ of abdomen and pelvis without contrastMD Viktor Bradford Work Phone: Start: 41-88-9223Tzotz cultureMD Viktor Bradford Work Phone: Start: 74-39-9493KB angiography of thoraxMD Viktor Bradford Work Phone: Start: 90-03-5876Ygmfj chest X-rayMD Viktor Bradford Work Phone: Start: 50-63-0929VPFD-CoV-2, Influenza & RSV (PCR)MD Viktor Bradford Work Phone: Start: 05-15-8267Xhpco cultureMD Viktor Bradford Work Phone: Start: 12-83-5181Xmxdo cultureMD Viktor Bradford Work Phone: Start: 73-22-3388Qoyll cultureMD Viktor Bradford Work Phone: start: 09-82-8695Qdmdo cultureMD Viktor Bradford Work Phone: Start: 39-30-1913Gpqappynjgjkg agalactiae cultureMD Viktor Bradford Work Phone: Start: 08-41-0467Rsnnc cultureMD Viktor Bradford Work Phone: Start: 25-05-5094Rpwbx cultureMD Viktor Bradford Work Phone: Start: 11-53-8775Ktfif cultureMD Viktor Bradford Work Phone: Start: 59-41-1136XhxwwhocpkkrsainNfzpmt E Braun Work Phone: Start: 49-45-3660Subcapjwmeyyzvocd with dilation of urethral strictureESTELA CHUNG Start: 79-38-2353Zxfim std airflow hrt rate&o2 sat effort unattNICOLE DANNERStart: 92-87-9384Zvvdq depression screening assessment Clemente Johnson MD Work Phone: appendectomyViktor Bradford Work Phone: AppendectomyESTELA CHUNG CholecystectomyViktor Bradford Work Phone: CholecystectomyESTELA CHUNG H/O: surgeryHistory of gastric surgery Viktor Bradford Work Phone: Insertion of pacemaker pulse generatorViktor Bradford Work Phone: Maintenance procedure for cardiac pacemaker system ESTELA JATIN Operation on gallbladderMarcia E Sanchez Work Phone: Operation on stomachMarcia E Bradford Work Phone: Repair of anterior cruciate ligament of knee joint Viktor Leone Bradford Work Phone: SARS Antigen (LFIA)MD Viktor Bradford Work Phone: Urine cultureMD Viktor Bradford Work Phone: Urine cultureMD Viktor Sanchez Work Phone: Plan of Treatment DateCare ActivityDetailAuthorStart: 02-08-0952Nutbcy Vaccines (1 of 2)Zoster Vaccines (1 of 2)[facility]: 66-67-9438FRTGL-19 Vaccine ( season)COVID-19 Vaccine ( season)[facility]: 82-65-6674Kmnsxtbkj vaccinationUnProvidence HospitalStcrestone: 33-43-7279VmavjpgddOhioHealth Arthur G.H. Bing, MD, Cancer Centertart: 11-17-2024 [facility] Centertart: 81-29-6989PTDID-19 Vaccine ( season)COVID-19 Vaccine ( season)[facility] Start: 88-31-9010Dkveilosu vaccinationUnMetroHealth Main Campus Medical Center: 83-95-8267GLF, Provider: Rita Olivia, Status: Pen, Time: 8:40 AMFUV, Provider: Rita Olivia, Status: Pen, Time: 8:40 AM-[facility] 320 DO Work Phone: Start: 07-07-2023 End: 22-55-1633Bruwfoh encounter vjluphrco95/16/2024 8:40 AM EST Office Visit [facility] [address] [facility] [address] [place] [address] Rita Olivia MD [address] [facility] [address], [place] [address] [place], [place] [id number] [facility]: 00-22-4841XPDWR-19 Vaccine ( season)COVID-19 Vaccine ( season)[facility]: 38-51-7582Mphcapvip vaccination Influenza Vaccine (#1)[facility]: 04-20-4071RMH, Provider: Rita Olivia, Status: Pen, Time: 8:40 AMFUV, Provider: Ne,Rita, Status: Pen, Time: 8:40 AMState [facility] [address] DO Work Phone: Start: 29-76-0472Yzlhzem encounter procedure GERTRUDE, Provider: [facility], Status: Pen, Time: 8:00 AMState [facility] health facility [facility] [address] DO Work Phone: Start: 96-08-0283JycrtlguaThe [facility] Start: 17-29-0364Sretnqew to Social ServicesThe [facility] Hospital Start: 44-03-8066Fkmsahit admissionOhioHealth Arthur G.H. Bing, MD, Cancer Centertart: 16-97-1573Bpqpfwrz identified in Urine by CultureUrine CultureOhioHealth Arthur G.H. Bing, MD, Cancer Centertart: 98-74-2963YlymoygflOhioHealth Arthur G.H. Bing, MD, Cancer Centertart: 98-53-7822Ltikmlfggiqbze of prophylactic treatmentOhioHealth Arthur G.H. Bing, MD, Cancer Centertart: 91-25-3670Uyzlqjrry for malignant neoplasm of breastMaogram [facility] HospitalStart: 41-06-3251Lcfsvmin to clinical wood crew supervisor [facility] Cancer Centertart: 16-84-7294Hzptywzj to Senior Ux Designer [facility], Cancer Centertart: 73-88-8130Ocxxdabw admissionOhioHealth Arthur G.H. Bing, MD, Cancer Centertart: 20-82-4320Uwywcigq identified in Urine by Culture [facility] Cancer Centertart: 39-13-9020CR angiography of thoraxCT angio chest PE protocolOhioHealth Arthur G.H. Bing, MD, Cancer Centertart: 45-08-6294HG ChestOhioHealth Arthur G.H. Bing, MD, Cancer Centertart: 69-64-4477Lczin chest X-rayXR chest 2V*[facility] Cancer Centertart: 19-93-8889JX Chest 2 ViewsOhioHealth Arthur G.H. Bing, MD, Cancer Centertart: 24-01-3051Wrlzztsq identified in Urine by Culture [facility] Cancer Centertart: 85-04-7025QzlquazumOhioHealth Arthur G.H. Bing, MD, Cancer Centertart: 11-68-5183Quxhjhli admissionOhioHealth Arthur G.[facility]. [facility], MD, Cancer Centertart: 27-01-5008ImjdxzdgzOhioHealth Arthur G.H. [facility], MD, Cancer Centertart: 18-44-4812Rpgvwpbt to psychiatristOhioHealth Arthur G.H. [facility], MD, Cancer Centertart: 14-34-6566Ldmwswjq admission [facility] Centertart: 45-70-0518Dxleujwhke of Products of Conception, Low Forceps, Via Natural or Artificial OpeningExtraction of Products of Conception, Low Forceps, Via Natural or Artificial OpeningOhioHealth Arthur G.H. Bing, MD, Cancer Centertart: 48-93-1218DkxcznkodOhioHealth Arthur G.H. Bing, MD, Cancer Centertart: 03-49-0461AmkoizsftOhioHealth Arthur G.H. Bing, MD, Cancer Centertart: 79-02-9552Toibozej to neurologistOhioHealth Arthur G.H. [facility], MD, Cancer Centertart: 12-98-0959Zqxkcrkc admission [facility] Centertart: 34-04-8670RblpbikhfOhioHealth Arthur G.H. [facility], MD, Cancer Centertart: 70-26-3488Yjpkimzd admissionOhioHealth Arthur G.H. Bing, MD, Cancer Centertart: 74-87-1594Llgscrkq identified in Urine by CultureOhioHealth Arthur G.H. Bing, MD, Cancer Centertart: 25-04-5534Famnx B Streptococcus CultureGroup B Streptococcus CultureOhioHealth Arthur G.H. Bing, MD, Cancer Centertart: 76-50-5425EJH, Provider: Rita Olivia, Status: Pen, Time: 9:40 AMFUV, Provider: Rita Olivia, Status: Pen, Time: 9:40 AMMPMerged With [facility] [address] DO Work Phone: Start: 63-38-3844AajtvpzkkThe [facility] Hospital Start: 38-39-8257Fkjymjog identified in Urine by CultureOhioHealth Arthur G.H. [facility], MD, Cancer Centertart: 21-73-4788Pfkpnpjp to Social ServicesOhioHealth Arthur G.[facility]. [facility], MD, Cancer Centertart: 71-35-4621Nhruu disorder assessmentOhioHealth Arthur G.H. Bing, MD, Cancer Centertart: 32-03-0711Gnvftpga admissionOhioHealth Arthur G.H. [facility], MD, Cancer Centertart: 37-80-6683RcxrsuznhOhioHealth Arthur G.H. Bing, MD, Cancer Centertart: 06-26-2022 Hospital admissionOhioHealth Arthur G.H. [facility], MD, Cancer Centertart: 29-46-6923MjwncptpjOhioHealth Arthur G.H. Bing, MD, Cancer Centertart: 65-33-5573Nnzrpbcd identified in Urine by Culture [facility] Centertart: 28-75-7439Vmolmqsr identified in Urine by CultureOhioHealth Arthur G.H. [facility], MD, Cancer Centertart: 68-64-5887Sekeeyaww vaccinationINFLUENZA (#1)[facility] Hospitaltart: 74-22-4704SAMT, Provider: ЕКАТЕРИНА [facility] ULTRASOUND 01,[id number], Status: Pen, Time: 7:45 AMECHO, Provider: ЕКАТЕРИНА [facility] ULTRASOUND 01,[id number], Status: Pen, Time: 7:45 AM- [facility] 320 DO Work Phone: Start: 27-31-2282YwsjgehtrThe [facility] Hospital Ctr Work Phone: Start: 84-78-9618Mbovbpkr to obstetricianThe [facility] Hospital Ctr Work Phone: Start: 02-88-3478Jlpspwxy admissionThe [facility] Hospital Ctr Work Phone: Start: 81-37-2082Vetktag encounter procedure FUVPACEMKR, Provider: [facility],EMCPACEMKR, Status: Pen, Time: 10:20 RBDQ-Ayjipkxtdioa-MMCOS Work Phone: start: 05-11-3014Upsjzuzo mellitus screeningDiabetes ScreeningGood Samaritan Hospital: 20-05-0048XMRWXZRO, Provider: Dennis Almendarez, Status: Pen, Time: 9:00 AMEPVNEURO, Provider: Dennis Almendarez, Status: Pen, Time: 9:00 RORR-Mnzqwzbgjkasf-Mnqqrzl 3200 Work Phone: Start: 40-51-2456Dvuurfaig vaccinationINFLUENZA (#1) [facility]tart: 59-03-1466Zwjao depression screening assessmentDEPRESSION SCREENINGVan Wert County Hospitaltart: 70-20-2637Ltyswkjcu vaccinationFlu vaccine (#1) [facility]: 70-90-6946BZK TESTINGHPV TESTINGTrihealth [facility]hes[facility] Hospital Start: 27-11-1290OBV TESTINGPAP TESTINGVan Wert County Hospitaltart: 75-27-6173JBS Vaccines (1 - 3-dose standard series)HPV Vaccines (1 - 3-dose standard series) [facility]: 93-02-1220KXA Vaccines (1 of 1 - Standard series)MMR Vaccines (1 of 1 - Standard series)[facility]: 63-17-7065Wnrnrlpnd vaccinationTriHealth Bethesda North Hospital Start: 43-27-5245QGdZ/Tdap/Td Vaccines (1 - Tdap)DTaP/Tdap/Td Vaccines (1 - Tdap)[facility]: 05-14-2290Piufqchlk for malignant neoplasm of cervixGood Samaritan Hospital: 16-09-5691QJyU/Tdap/Td vaccine (1 - Tdap)DTaP/Tdap/Td vaccine (1 - Tdap)[facility]: 35-06-4062Vqmkacfbn A Vaccines (1 of 2 - Risk 2-dose series)Hepatitis A Vaccines (1 of 2 - Risk 2-dose series)[facility]: 2001 Hepatitis B Vaccines (1 of 3 - 19+ 3-dose series)Hepatitis B Vaccines (1 of 3 - 19+ 3-dose series)[facility]: 55-76-2762Ibfhm microalbumin profileDTAP,TDAP,TD (1 - Tdap)[facility]: 2000 Diabetes mellitus screeningDiabetes ScreeningTriHealth [facility]hesda [facility] Start: 60-44-4370MOEGBQWZN C SCREENINGHEPATITIS C SCREENINGTrihealth [facility]hes[facility] Start: 57-29-1762Bwzfwkczb C screeningHepatitis C ScreeningGood Samaritan Hospital: 69-70-2006RCN SCREENINGHIV SCREENINGVan Wert County Hospitaltart: 64-62-5166KPR screeningHIV screenUniversity Hospitals Ge[facility] Medical Center: 77-30-7395QRPXZ-19 VACCINE (1)COVID-19 VACCINE (1)[facility]: 51-10-7764UNS Vaccines (1 of 1 - Standard series)MMR Vaccines (1 of 1 - Standard series)[facility]: 70-93-6259Etpnbynvr vaccine (1 of 2 - 2-dose childhood series)Varicella vaccine (1 of 2 - 2-dose childhood series)[facility]: 84-15-1699ZCFKX-19 VACCINE (#1)COVID-19 VACCINE (#1) [facility]: 10-96-5242Syuxwgjkr B Vaccines (1 of 3 - 3-dose series) Hepatitis B Vaccines (1 of 3 - 3-dose series)[facility] Start: 06-88-8680RXS screeningHIV ScreeningUnProvidence Hospital Start: 01-60-9914Otdih panelLipid PanelUnProvidence HospitalStart: 05-11-1983Medicare Annual Wellness VisitMedicare Annual Wellness Visit (AWV) [facility] End: 78-51-3262Mnusspv Device Check - [facility] Work Phone: Comment on above:Once for 1 Occurrences starting 07/29/2023 until 07/29/2023 End: 61-70-8207Etjyosm Device Check - [facility] Work Phone: Comment on above:Once for 1 Occurrences starting 11/04/2023 until 11/04/2023 End: 29-07-5207Rvansbj Device Check - [facility] Work Phone: Comment on above:Once for 1 Occurrences starting 05/25/2024 until 05/25/2024 End: 67-03-5566Xikpszz Device Check - [facility] Work Phone: Comment on above:Once for 1 Occurrences starting 02/10/2024 until 02/10/2024 End: 61-22-7496Nynnjdo Device Check - [facility] Work Phone: Comment on above:Once for 1 Occurrences starting 08/31/2024 until 08/31/2024 End: 52-85-7363Psaiswg Device Check - [facility] Work Phone: Comment on above:Once for 1 Occurrences starting 12/07/2024 until 12/07/2024 End: 25-07-8196Bqsiany Device Check - [facility] Work Phone: Comment on above:Once for 1 Occurrences starting 03/15/2025 until 03/15/2025 End: 50-86-5890Rxkz Sleep StudyBr[facility]am [facility] Routine One Time for 1 Occurrences starting 01/24/2020 until 01/24/2020[facility] [place] Comment on above:One Time for 1 Occurrences starting 01/24/2020 until 01/24/2020 Patient EducationThe [facility]tr Work Phone: Patient referralThe [facility] Work Phone: Reagin Ab [Presence] in Serum by [facility] Hospitaltreptococcus agalactiae [Presence] in Unspecified specimen by Organism specific cultureThe [facility] Hospital Immunizations Immunization DateImmunizationNotesCare CdztgxqwOffbfojs17-84-8304fawmcfnrf virus vaccine, unspecified formulationJENNIFER JATIN [facility]12-06-2020influenza, injectable, quadrivalent, preservative Joey Johnson MD Work Phone: [facility]and Yzwyfk32-01-8654fsryzpiss virus vaccine, unspecified formulationJENNIFER JATIN [facility]03-09-2020influenza virus vaccine, unspecified formulationMarcia E Bradford Work Phone: [phone]-ByjkyKittson Memorial Hospital 320 DO Work Phone: [phone]) [phone] virus vaccine, unspecified formulationJENNIFER JATIN [facility]10-20-2019influenza, injectable, quadrivalent, preservative freeClemente Johnson MD Work Phone: [facility]and Olgdqz82-68-2006jsfky enjysboec-E2X8-47, preservative-free, injectableMarcia E Bradford Work Phone: [phone]-ZldsoFederal Medical Center, Rochesteria 320 DO Work Phone: Payers DatePayer CategoryPayerPolicy [id number] Health [id number] [id number]-dzk [id number] 2022Medicare [id number] 2022Medicare (Managed Care)[employer] MEDICARE ASSURE [id number]nug Health [id number] 2021Medicaid MEDICAID [facility] MEDICAID [id number] 2020-Present [phone] [address] [place], [place] [id number] 2021MedicareMEDICARE MEDICARE A AND B [id number] 2020-Present [phone] [address] [address] [place] [address] [id number] 1.2.840.524337.1.13.159.2.7.3.84383[id number] 1.2.840.300679.1.13.239.2.7.3.050729.40368-54-7826Rjhohxy6473794 2.840.1.821148.3.579.2.30499-11-7684Sqeedjl5151625 2.16840.1.149364.3.579.2.11140-01-4697Wqnhazj3684593 2.0.1.216333.3.579.2.21303-90-5221Jwncuvd09736633 2.840.1.375983.3.579.2.500321-67-8853Gflxosy50400138 2..1.160824.3.579.2.823073-12-9647Yjgqqgr59867301 2..1.149604.3.579.2.829045-95-2190Rckkyky91798469 2..1.480887.3.579.2.724205-39-9939Qpszudk52482789 2..1.733737.3.579.2.291251-23-0816Cackqfa715241116 2..1.739339.3.579.2.37945-50-7361Gntgwhx424127225 2..1.199970.3.579.2.01113-40-8749Murvwci213869902 2..1.244947.3.579.2.11311-31-6701Dzjplir573590285 2..1.614427.3.579.2.99852-70-5420Kpaseom347184541 2..1.659941.3.579.2.38474-28-0321Krukbow58157754 2..1.932295.3.579.2.54669-85-9098Osozkjz09021173 2..1.898484.3.579.2.16464-91-7627Brlrhgu52962643 2..1.688748.3.579.2.78104-89-1133Cymwfol75909076 2.16.840.1.407739.3.579.2.20459-05-1484Hgfiewz24629345 2.0.1.129257.3.579.2.14410-96-0773Vypbdpn10152931 2.840.1.459861.3.579.2.329283-53-6204Fqmyeio08411842 2.0.1.870353.3.579.2.998221-90-2049Axwoypp37655444 2..1.264196.3.579.2.548151-05-7920Mcrking72477947 2..1.269769.3.579.2.663994-86-1726Gyipwkt520212318 2..1.923271.3.579.2.30161-80-1115Cacrzgr867863317 2..1.697470.3.579.2.15845-17-8123Tovzqpb672495958 2..1.204017.3.579.2.44341-69-5768Zcpgrea034932441 2..1.813612.3.579.2.89349-29-5723Xhqazal482121297 2..1.984323.3.579.2.196 [id number] [id number] [id number] 2.840.1.199070.3.579.2.467Xxwibnb64869165 2..1.671807.3.579.2.531 Wmdoemo39201229 2..840.1.325122.3.579.2.277Elfypnw78442821 2..840.1.605667.3.579.2.275Iqotltv01217307 2..840.1.064282.3.579.2.531 Ktazqdt72374841 2.0.1.810039.3.579.2.531 Social History DateTypeDetailFacilityTobacco smoking status NHISUnknown if ever smokedUniversity Hospitals Geaug[facility] Center: 93-59-6732Aze Assigned At BirthNot on [facility]: 99-21-7126Zqs-mmjcwnSlz-inseknUE-Lwltfixyplqak-[address] Work Phone: Start: 10-21-2013 End: 24-09-0578Rqphbrd smoking status NHISNever smoked tobaccoTrihealth [facility]hesda [facility] Work Phone: Start: 10-21-2013 End: 65-30-3262Ffahajn use and exposureSmokeless tobacco non-userTrihealth Bethesda [facility] Hospital Work Phone: Start: 12-76-1077Chbiufh intakeCurrent non-drinker of alcohol (finding)[facility]: 81-73-8177Jymgxke SDOH Financial5 [facility] ClinicStart: 35-62-8780Mhjiann SDOH Food Haogs4Jnqnziqht ClinicStart: 92-62-3169Rakaanz SDOH Transport Mdl5Gmvafiziq ClinicStart: 77-50-7286Ujl Assigned At BirthFemaleCleveland ClinicStart: 77-62-1411Nojgylo smoking status NeverExecutive [facility]rology of [facility] BellevueStart: 06-08-2023 Sex Assigned At BirthFeOhioHealth Marion General HospitalTobacco smoking status NHISTobacco smoking consumption unknownUnProvidence Hospital Work Phone: Start: 27-43-6454Tppltep intakeEx-drinker (finding) [facility] Work Phone: Start: 10-03-2009 End: 67-84-7695EmiNmgavb (finding)[facility], Cancer Centerexual OrientationExecutive Urology of [facility] Medical Equipment Procedure CodeEquipment CodeEquipment Original TextEquipment IdentifierDatesSt Hudson 2087tc/[id number]: 89-94-1095Qo Hudson 2087tc/[id number]_impStart: 65-75-7332Xk Hudson Assurity Mri [id number]_ayvGgqcz: 26-59-2807Gcjp Port-A-Cath Ii 7.8fr 2.6mm 1.6mm Polysulfone Titanium Polyurethane 76 - [id number]: 76-82-3278Jvbxst Feeding Tube 10f [id number]_imp Start: 30-64-6241Eun Ponsky 20fr Silicone Peg Pull Deluxe Kit Non Safety Sterile - [id number]: 87-06-9601Qewz Claudio Secur-Migue 20fr Standard J Silicone Jejunostomy Trimmable Distal - [id number]: 04-20-2019 Tube Claudio Secur-Migue 18fr Standard Silicone Natural Rubber Jejunostomy - [id number]_uqkNfkzy: 19-31-5777Ped Endovive 20fr Xylocaine Silicone Peg Pull Method Ampule Trocar Cannula - [id number]: 10-25-2019 Goals DatePatient GoalDesired Activity/State Functional Status NmfvGvnbohqmdlKyzwkxWetecgfx89-89-4800Ghcgemwcco StatusN/[facility]11-07-2023Functional StatusN/AExecutive Urology of St[facility]06-26-2023Functional statusPatient at BaselineOhio [facility] Work Phone: [phone]) [phone]psxpagcdo StatusN/[facility]05-13-2023Functional statusPatient at BaselineOhio State Health System Work Phone: 1(840) 519-287603974374-69-5756Quuswixctf statusPatient at Baseline [facility] Work Phone: 1(354) 534-961603323532-58-2628Xvaweqhjmv StatusN/AExecutive Urology of St. [facility]02-22-2023Functional statusPatient at BaselineOhio State [facility] Work Phone: 1(682) [phone]wxchafm statusPatient at Baseline [facility] Work Phone: 1(219) [phone]Mtyhdjxqks statusPatient at Baseline [facility] Work Phone: Mental Status VcpzHxfntiscggIsizjvVphbvizq87-58-0784Oipwemzqf functionCognitive Status Patient at BaselineOhio [facility] Work Phone: 1(502) 220-277505-506154-88-0847Zuhunghqp functionCognitive Status Patient at BaselineOhio [facility] Work Phone: 1(707) 503-258803-991414-33-3315Hdpwicnty functionCognitive Status Patient at BaselineOhio [facility] Work Phone: 1(990) [phone]scpyqc functionCognitive Status Patient at BaselineOhio [facility] Work Phone: 1(954) [phone]edklrb functionCognitive Status Patient at BaselineOhio [facility] Work Phone: 1(445) [phone]mawoej functionCognitive Status Patient at BaselineOhio [facility] Work Phone: Clinical Notes 06-07-2019 to 01-02-2025 Note Date & FzrnRxwwQdbulaii33-33-9647 Hospital Discharge instructions Patient Education 01/02/2025 10:32:03 Cystoscopy Cystoscopy [...] including vitamins, herbs, eye drops, creams, and lnok-tlt-bgshqxt medicines. Any problems you or family members [...] provider tells you to take them. Taking gydh-ftl-siwrtgc medicines, vitamins, herbs, and supplements. Tests You [...] Follow these instructions at home: Medicines Take aqva-isl-trxquep and prescription medicines only as told by your health care provider. If you were prescribed an antibiotic medicine, take it as told by your health care provider. Do notstop taking the antibiotic even if you start [...] blood in your urine increases, call your healthcare provider. Follow instructions from your health care provider about eating or drinking restrictions. If a tissue sample was removed for testing (biopsy) during your procedure, it is up to you to get your test results. Ask your health care provider, or the department that is doing the test, when yourresults will be ready. Drink enough fluid to [...] blood in your urine increases, call your healthcare provider. If you were prescribed an antibiotic medicine, take it as told by your health care provider. Do notstop taking the antibiotic even if you start to feel better. This information is not intended to replace advice given to you by your health care provider. Make sure you discuss any questions you have with your health care provider. Document Revised: 02/19/2022 Document Reviewed: 01/18/2021 [employer] Patient Education 2023 ZhongSou. Follow Up Care 07/05/2024 14:01:42 With:[facility] Address: When: Unknown Comments:Only if needed/new problems arise. No scheduled appointment indicated at this time. [facility] 07-14-2025 NotePatient Education Urology Cystoscopy Cystoscopy is a procedure [...] including vitamins, herbs, eye drops, creams, and wzns-zuo-npyazcf medicines. ??? Any problems you or family [...] tells you to take them. ??? Taking gput-dcf-stxxjrp medicines, vitamins, herbs, and supplements. Tests You [...] cystoscope to fill your bladder. The fluid willstretch your bladder so that your health care [...] these instructions at home: Medicines ??? Take dybq-iqh-eipzyxw and prescription medicines only as told by your health care provider. ??? If you were prescribed an antibiotic medicine, take it as told by your health care provider. Donot stop taking the antibiotic even if you [...] testing (biopsy) during your (more content not included)...[facility]05-19-2025 Evaluation note* Diagnosis Onset Date Resolution Status Admit Date Port-A-Cath in place acuteMay 2024 2:52pm [facility] Work Phone: 1(266) 666-155301-14-2025 Hospital Discharge instructions Patient Education 07/05/2024 13:36:38 [...] degrees Follow Up Care 06/21/2024 10:16:19 With:Michael HAN Address: [address] [place] [address] [place] [address]- Business (1) When:01/02/2025 13:36:19 Comments:With Martha Chung [facility] 01-14-2025 Evaluation + Plan noteExtracted from:Title: Local Female Cystoscopy w/ or w/o UD - FTAuthor:Michael HAN MD RDate: 07/05/24 Patient: MARICARMEN ANDERSON Age: 43 years Sex: Female : 1980 Associated Diagnoses: None Author: Michael HAN MD Procedure Operative Information Details: Date/ Time: [...] discharged home with antibiotic coverage, Follow up arranged.Addendum by Michael HAN MD on July 05, 2024 13:40 ESTUrethra was dilated from 22-30 Bruneian with Pavel sounds. Future Appointments Appointment Date:01/02/2025 08:20:00 AM Scheduled Provider:ESTELA CHUNG PA-C Location:[facility] [place] Appointment Type:URO Office Visit [facility] 01-14-2025 NotePatient Education Custom Cystoscopy with [...] if you have a fever over 100 degreesNovant Health Matthews Medical Centerer [facility] 07-04-2024 Radiology Diagnostic [facility]SAM[facility] Main [place] [address] [place] [address] CT Scan Report Signed Patient: Maricarmen Anderson MR#: [id number] : 1980 Acct:[id number] Age/Sex: 43 / F ADM Date: 5 Loc: CT Room: Type: [facility] Attending Dr: Michael Han MD Copies to: Michael Han MD~ Ordering Provider: Michael Han MD Date of Service: 07/04/24 CT/CT abdomen [...] Oro Jr., D.O.07/04/2024 2:58 PM Dictation Location: [place] [address] Transcribed By: [facility] 07/04/241457 Dictated By: Mitchel Oro Jr, DO 07/04/241454 Signed By: 07/04/24 1458 [facility]12-20-2024 Evaluation note* Diagnosis Onset Date Resolution Status Admit Date Cervical radicular pain acuteDeceer 2023 9:26amGastroparesisacuteDeceariz[facility] 2023 9:26am [facility] Work Phone: 1(690) 754-497012-12-2024 Hospital Discharge instructions Patient Education 06/02/2024 15:53:20 [...] Follow these instructions at home: Medicines Take lvyo-qig-yhbrnct and prescription medicines only as told by [...] provider. Document Revised: 02/27/2021 Document Reviewed: 02/27/2021 [employer] Patient Education 2023 [employer]ongSou. Follow Up Care 05/27/2024 13:08:43 With:JATIN RILEY, ESTELA Leone, URL Address: [facility] [place] [address] When: Unknown [facility] 12-12-2024 NotePatient Education Obstetrics and Gynecology [...] these instructions at home: Medicines ??? Take njid-pzf-eoppeqb and prescription medicines only as told by [...] provider. Document Revised: 02/27/2021 Document Reviewed: 02/27/2021 [employer] Patient Education ? 2023 [employer]ongSou.[facility] 05-25-2024 Hospital Discharge instructions Follow Up Care 05/25/2024 15:26:22 With:JATIN RILEY, ESTELA Leone, URL Address: [address] [address] When: Unknown [facility] [place] 390534-21-7084 Hospital Discharge instructions Patient Education 04/28/2023 10:54:08 Urinary Tract Infection, Adult, Zryv-ph-Zefs Urinary Tract Infection, Adult A urinary tract [...] Follow these instructions at home: Medicines Take nris-yio-gpkdmmj and prescription medicines only as told by [...] provider. Document Revised: 01/18/2021 Document Reviewed: 01/18/2021 [employer] Patient Education 2022 ZhongSou. Follow Up Care 01/21/2023 14:42:53 With:ESTELA CHUNG PA-C, URL Address: [address] [place] [address]. [place] [address] [id number] When: Unknown Comments:3 yr w/ CRESCENCIO [facility] 06-26-2023 Discharge summary Author Nimesh regalado [facility] December 15, 2022 9:25amNote Date/TimeJune 2022 9:24am[address] [address] Discharge Summary Signed Patient: Maricarmen Anderson MR#: [id number] : 1980 Acct:[id number] Age/Sex: 42 / F Adm Date: 3 Loc: 1S Room: 6H1208-[address]: Eduardo Swain MD Copies to: MD Eduardo Goldsmith MD Marcia E Braun, MD~ Providers Date of Discharge: 12/15/22 Discharging Provider: Toribio Cerda Primary Care Provider: Viktor Bradford Consults: 12/11/22 22:01 Consult to Case Management [...] and would see how she would respond afterthis Invega Sustenna.? She reported that she still [...] therapy services available whileon the unit and wasencouraged to participate. Psychotropic medications targeting mood and anxiety were started and shewas provided supportive and reality oriented therapy. Patient reported that Invega was making her feel suicidal and therefore oral tablet was discontinued. She was open to continuingmonthly injection. She felt that her symptoms have improved on the current medication regimen, and has been compliantwith treatment, and reported no side effects. Her [...] understands the importance of outpatient follow-up to ensurethe stability of her symptoms. Shedenied suicidal or [...] her discharge from the hospital doesnot mean thather medical care ends here. She needs consistent [...] self or stop treatment, but to call [facility], [facility] or come to the nearest emergency room.The patient also received information regarding advanced mental and medical health directives during this hospitalization to discuss with their outpatient provider. The plan was discussed with the patient, the nurses and the case management department. The patient voiced agreementwith the plan. Discharge disposition: Home with sister. [...] limiting the number of medications to a 15- day supply with one refill at the time [...] follow-up to have somewhere to go and someoneto manage her assymptoms and stressors develop. This is the best way to keep her alive. So, we discussed a crisis plan for future suicidality: at the first sign of distress, she will call the hotline; if this is not sufficient, she will 911, then call family members or friends; ultimately, she willcome to the ER. Safety: The patient is [...] notify her psychiatrist if she becomes due tothe risk of harm to the fetus. MSE: [...] Q28D promethazine 12.5 mg suppository 12.5 mg MA Q6H PRN (Reason: Nausea And Vomiting) Patient [...] Days Qty: 30 0RF Follow Up: [facility] [Outside] [facility] Vkitor Bradford MD [Primary Care Provider] - (Call your primary provider for any medical needs. ) Documented By: Nimesh Cerda MD 3 23 Signed By: <Electronically signed by Nimesh Cerda MD> 12/15/22 0925 [facility] Work Phone: 1(617) 950-466306-25-2023 Progress note Author Nimesh regalado [facility] December 14, 2022 7:31amNote Date/TimeJun2022 7:29am[place] [id number] Psychiatry Progress Note Signed Patient: Maricarmen Anderson MR#: [id number] : 1980 Acct:[id number] Age/Sex: 42 / F Adm Date: 06/22/2 3 Loc: 1S Room: 9E6786-2 Type : ADM IN Attending Dr: Eduardo [...] signed by Nimesh Cerda MD> 12/14/22 0731 [facility] Work Phone: 1(622) 347-560606-24-2023 Progress note Author Nimesh regalado [facility] December 13, 2022 8:43amNote Date/TimeJune 2022 6:53[place] [id number] Psychiatry Progress Note Signed Patient: Maricarmen Anderson MR#: [id number] : 1980 Acct:[id number] Age/Sex: 42 / F Adm Date: 3 Loc: 1S Room: 9Q6945-2 Type : ADM IN Attending Dr: Eduardo [...] She has been following up with Dr. Piña and they have been working on medication [...] has also been experiencing some anhedonia and lackof motivation. Oral Invega was stopped. We will start Cogentin 0.5 mg po bid Continue Abilify 30 mg, Effexor 150 mg, Remeron 15 mg Continue to monitor mental status Encourage group participation and medication compliance Risk benefits alternatives explained Documented By: Nimesh Cerda MD 3 [id number] Signed By: <Electronically signed by Nimesh Cerda MD> 12/13/22 0843 [facility] Work Phone: 1(188) 319-303506-23-2023 History and physical note Author Eduardo Swain [facility] December 12, 2022 10:19amNote Date/TimeJune 2022 10:19[place] [address] Psychiatry H&P Signed Patient: Maricarmen Anderson MR#: [id number] : 1980 Acct:[id number] Age/Sex: 42 / F Adm Date: 3 Loc: Room: [address] [place] [address] Type: ADM IN Attending Dr: Eduardo Swain [...] BID 15 days #30 tabs 09/07/22 [Rx Lqlkbcseb59/22/23] ondansetron 4 mg disintegrating tablet 4 mg PO TID PRN Nausea 10/28/22 [History Confirmed 12/11/22] cholecalciferol (vitamin D3) 25 mcg (1,000 unit) tablet 50 mcg PO DAILY 30 days #60 tabs 11/01/22 [Rx Confirmed 12/11/22] cyanocobalamin (vitamin B-12) 1,000 mcg tablet 1,000 mcg PO QAM #30 tabs 11/01/22 [Rx Confirmed 12/11/22] paliperidone palmitate 234 mg/1.5 mL intramuscular syringe (Invega Sustenna) 234mg IM Q28D 12/11/22[History Confirmed 12/11/22] promethazine 12.5 mg rectal suppository 12.5 mg MA Q6H PRN Nausea And Vomiting 12/11/22 [History [...] cloudy A Urine pH 6.0 Ur Specific Showell 1.015 Urine Protein Negative Urine Glucose (UA) Normal Urine Ketones Negative Urine Occult Blood Negative Urine Nitrite Negative Ur Leukocyte Esterase 2+ H Urine RBC 0-1 Urine WBC 5-9 H Assessment/Plan (1) Schizoaffective disorder: Code(s): F25.9 - Schizoaffective disorder, unspecified Status: Acute Plan Patient presenting due to suicidal thoughts. She has also been experiencing some anhedonia and lackof motivation. She reported that symptoms started afterInvega Sustenna We will stop oral Invega at this time Continue Abilify 30 mg, Effexor 150 mg, Remeron 15 mg Continue to monitor mental status Encourage group participation and medication compliance Risk benefits alternatives explained Documented By: Eduardo Swain MD 12/12/22 1016 Signed By: <Electronically signed by Eduardo Swain MD> 12/12/22 0770 [facility] Work Phone: 1(804) 380-432606-20-2023 Hospital Discharge instructions Patient Education 12/09/2022 09:42:03 [...] degrees Follow Up Care 12/02/2022 10:34:47 With:Michael HAN Address: [facility] [address] [place] [address]- Business (1) When:06/10/2023 09:41:40 Comments:Patient is to get scheduled for a CT abdomen and pelvis today [facility]05-13-2023 Discharge summary Author Nimesh regalado [facility] November 01, 2022 9:36amNote Date/TimeMay 2022 9:34a[place] [id number] Discharge Summary Signed Patient: Maricarmen Anderson MR#: [id number] : 1980 Acct:[id number] Age/Sex: 42 / F Adm Date: 3 Loc: Room: [address] [place] [address]: Toribio Cerda MD Copies to: MD Viktor Goldsmith MD~ Providers Date of Discharge: 11/01/22 Discharging Provider: Toribio Cerda Primary Care Provider: Viktor Bradford Consults: 10/28/22 20:51 Consult to Case Management [...] to take medications. The patient states she hasgastroparesis and vomits up anything she eats including [...] hermedications down. She follows up with Dr. Piña who recommended inpatient admission as recommended after his sedationswere worsening in the context of lack of medication effectiveness due to frequent emesis. Patient has history of gastroparesis and hospitalist was consulted. Please review their notes. She felt that her symptoms have improved on the current medication regimen, and has been compliant with treatment,and reported no side effects. She noted improvement [...] notify the staff if she has such thoughts.No suicidal or self-injurious behaviors occurred during inpatient [...] ability to enjoy certain activities, reduction of feelingsof worthlessness or guilt, and improved focus and [...] care, and her desire to live. We alsodiscussed availability of outpatient DBT groups which can be lifesaving. She reports good therapeutic alliance, good response to medication management and therapy, availability of local mental healthservices and willingness to follow up, lack of suicidal ideation, intent or plan, lack of impulsivity, agitation, or psychotic behavior. Pt is future-oriented and understands the importance of outpatient follow-up. Most psychiatric experts agree that predicting suicide is not an option but considering positive factors like family and rashard, lack of access to firearms, and desire to continue treatm ent makes her current suicide risk minimal. Given the chronicity of suicidality, we discussed measures to help her with long-term safety. The patient is not suicidal or psychotic now. To help decreaseher suicide risk, as best I can, I am referring her for outpatient treatment andCBT for long-term follow-up to have somewhere to go and someoneto manage her assymptoms and stressors develop. This is the best way to keep her alive. So, we discussed a crisis plan for future suicidality: at the first sign of distress, she will call the hotline; if this is not sufficient, she will 911, then call family members or friends; ultimately, she willcome to the ER. Safety: The patient is [...] notify her psychiatrist if she becomes due tothe risk of harm to the fetus. MSE: [...] Creatinine Clear 114.96, Sodium 140, Potassium 4.0, Tikqtnae155, Carbon Vrhqpez15.4, Anion Gap 10.6, BUN 14, Creatinine 0.82, Est GFR (CKD-EPI) > 60.0, Glucose 74, Calcium 8.8, Vitamin B12 205 11/01/22 06:20: Corrected WBC 5.1, Uncorrected WBC Count 5.1, RBC 3.89, Hgb 12.5, Hct 37.5, MCV 96.5, MCH 32.2, MCHC 33.4, RDW 12.9, Plt Count 184, MPV 7.8,Neut % (Auto) 54.1, Lymph % (Auto) 34.7, Port[place] % (Auto) 6.1, Eos % (Auto) 4.2, Baso % (Auto) 0.9, Nucleat RBC Rel Count 0.1, Neut # (Auto) 2.8, Lymph # (Auto) 1.8, Port[place] # (Auto) 0.3, Eos # (Auto) 0.2, [...] as prescribed. Your vitaminD and B12 were foundlow while you were i the hospital. Instructions: Depression, Adult (DC), Gastroparesis (Delayed Gastric Emptying) (DC), [facility] DC Instructions Prescriptions: New promethazine [Promethegan] 12.5 mg Suppository 12.5 mg MA Q6H PRN (Reason: Nausea And Vomiting) 15 [...] 30 Days Qty: 1 0RF Follow [facility] [Outside] - 11/11/22 10:00 am (At this appointment you will see the nurse, your counselor, and Dr. Piña. You will also receive your long acting injection. This appointment will take appoximately 2-1/2 hours. You may bring a snack if you would like. ) [facility] [Outside] (Case Management: You will RECEIVE PHONE CALL on Thursday11/03/22 between the hours of 8:00am and 12:00pm.) Viktor Bradford MD [Primary Care Provider] - (Call for medical follow-up) Clemente Johnson MD [Referring] - (call to schedule follow up appointment with ongoing symptoms of gastroparesis. Our contact with them in hospital indicated you have no current standing appointments with any [facility] physicians. ) Documented By: Nimesh Cerda MD 3 0931 Signed By: <Electronically signed by Nimesh Cerda MD> 11/01/22 0936 [facility] Work Phone: 1(235) 642-358805-12-2023 Progress note Author Afshan Hines [facility] October 31, 2022 2:14pmNote Date/TimeMay 2022 2:09pm[place] [address] Hospitalist Progress Note Signed Patient: Maricarmen Anderson MR#: [id number] : 1980 Acct:[id number] Age/Sex: 42 / F Adm Date: 3 Loc: Room: [address] [place] [address] Type: ADM IN Attending Dr: Toribio Cerda [...] Provider did reach out to [facility] Dr. Johnson office for further recommendations since she had [...] 19:16 10/30/22 15:11 Promethazine 12.5 Mg Supp.Rect MA 10/29/23 19:15 12.5 mg Q6H PRN Administration [...] N/V, chronic -Patient follows [facility] Dr [place] Johnson [phone] -metoclopramide scheduled, prn ondansetron/ promethazine for symptoms -note patient is 2 months ago Chronic conditions 1. Chronic back pain?tizanidine Schizoaffective disorder -Further plan of care per inpatient psychiatric team for psychoactive medicationmanagement/adjustment in psych with therapy Documented By: LI Coleman 3 6125 Signed By: <Electronically signed by ANP-RAISA Hines> 10/31/22 1414 [facility] Work Phone: 1(920) 497-435605-12-2023 Progress note Author Nimesh regalado [facility] October 31, 2022 8:45amNote Date/TimeMay 2022 8:45amNew [place] [address] Psychiatry Progress Note Signed Patient: Maricarmen Anderson MR#: [id number] : 1980 Acct:[id number] Age/Sex: 42 / F Adm Date: 3 Loc: Room: [address] [place] [address] Type : ADM IN Attending Dr: Toribio Cerda MD Copies to: ~ Date of Service: 10/31/2022 Subjective Subjective Narrative: Ms. Anderson was seen and evaluated at bedside this morning. She reports mild improvement of her voices and has been less nauseated. She has been spending most of her time inside her room. The patientdenies current suicidal or homicidal ideation, and verbalized [...] adjust accordingly once patients recurrent nausea and vomitingimproves. Hospitalists was consulted for recurrent nausea and [...] signed by Nimesh Cerda MD> 10/31/22 0845 [facility] Work Phone: 1(155) 266-692005-11-2023 Consult note Author Rosendo Holland [facility] 2022 1:42pmNote Date/TimeMay 2022 3:40pmNew [place] [address] Hospitalist Consult Note Signed Patient: Maricarmen Anderson MR#: [id number] : 1980 Acct:[id number] Age/Sex: 41 / F Adm Date: 3 Loc: Room: [address] [place] [address] Type: ADM IN Attending Dr: Toribio Cerda MD Copies to: MD Afshan Goldsmith, [facility] MD Rosendo Hsu, DO~ HPI DATE OF CONSULTATION: 10/29/22 REQUESTING PROVIDER: Toribio Cerda Consult Narrative Reason for Consult: Nausea vomiting gastroparesis HPI: 41-year-old female past medical history significant for bipolar, Chiari malformation type I, gastroparesis history of partial gastrectomy, GERD, myasthenia gravis, pacemaker. Patient presented to theemergency department with mental health complaints. She was admitted to the inpatient psychiatric unit for further management and care. Today hospitalist team was consulted for nausea vomiting with history of gastroparesis. Upon chart review it is noted that as needed medication ondansetron has not been given for 12 hours now despite nursing reports that the patient is currently is nauseatedand did not eat breakfast due to this. Normal BM this AM. Did eat 25% lunch and 25% dinnerbut vomited after dinner. Staff gently encouraged to utilize as needed medications and metoclopramide will beadded. Patient routinely follows with GIservices at [facility] for this and has upcoming [...] negative unless noted below or in HPI [facility] Attestation Statement: The following information [...] BID 15 days #30 tabs 09/07/22 [Rx Hvklmwnup32/09/23] paliperidone palmitate 156 mg/mL intramuscular syringe (Invega [...] Creatinine Clear 136.41, Sodium 141, Potassium 3.8, Uqfakubo934 H, Carbon Dioxide 24.6, Anion Gap 11.2, BUN 15, Creatinine 0.70, Est GFR (CKD-EPI) > 60.0, Glucose 91, Calcium 8.5 L, Total Bilirubin 0.5, AST 15, ALT 11, Alkaline Phosphatase 74, Total Protein 6.1 L, Albumin 3.7, Globulin 2.4, Albumin/Globulin Ratio 1.5 10/28/22 16:00: Corrected WBC 6.1, Uncorrected WBC Count 6.1, RBC 3.74, Hgb 12.1, Hct 36.0, MCV 96.1, MCH 32.4, MCHC 33.7, RDW 13.0, Plt Count 177, MPV 7.5,Neut % (Auto) 69.0, Lymph % (Auto) 19.9, Portage % (Auto) 6.5, Eos % (Auto) 3.9, Baso % (Auto) 0.7, Nucleat RBC Rel Count 0.2, Neut # (Auto) 4.2, Lymph # (Auto) 1.2, Portage # (Auto) 0.4, Eos # (Auto) 0.2, Baso # (Auto) 0.0, Monocyte Dist Width17.88 10/28/22 15:13: Urine Color Dark yellow A, Urine Appearance Clear, Urine pH 6.0,Ur Specific Gravity1.024, Urine Protein Negative, Urine Glucose (UA) Normal, Urine Ketones Trace H, Urine Occult BloodNegative, Urine Nitrite Negative, Urine Bilirubin Negative, Urine [...] y for gastroparesis 2019 -Patient follows with [facility] GI services on outpatient basis and has upcoming appointmentscheduled for this chronic condition -Add metoclopramide, continue [...] by Rosendo Holland DO> 10/30/22 1342 [facility] Work Phone: 1(209) 133-396005-11-2023 Progress note Author Nimesh regalado [facility] 2022 11:53amNote Date/TimeMay 2022 9:52[place] [address] Psychiatry Progress Note Signed Patient: Maricarmen Anderson MR#: [id number] : 1980 Acct:[id number] Age/Sex: 42 / F Adm Date: 3 Loc: Room: [address] [place] [address] Type : ADM IN Attending Dr: Toribio [...] status Documented By: Nimesh Cerda MD 3 6250 Signed By: <Electronically signed by Nimesh Cerda MD> 10/30/22 0059 [facility] Work Phone: 1([phone]) 271-825105-10-2023 History and physical note Author Nimesh regalado [facility] October 29, 2022 11:26amNote Date/TimeMay 2022 10:39[place] [address] Psychiatry H&P Signed Patient: Maricarmen Anderson MR#: [id number] : 1980 Acct:[id number] Age/Sex: 41 / F Adm Date: 3 Loc: 1S Room: 1L3947-8 Type: ADM IN Attending Dr: Toribio Cerda MD Copies to: MD Viktor Goldsmith MD~ Date of Service: 10/29/2022 HPI History of Present Illness History of present illness: Ms. Anderson is a 41 year old female who presents with worsening of underlying schizoaffective disorder with auditory hallucinations due to being unable to take medications. The patient states she hasgastroparesis and vomits up anything she eats including [...] in the ER was unremarkable in regards toher recurrent vomiting but she was diagnosed previously [...] eyebrows, smile/frown, puff out cheeks symmetrically, CNVIII: Hearingintact bilaterally, CNIX,X: Voice normal, soft palate elevation normal, symmetrical, CNXI: Shouldershrug strong, equal bilaterally, CNXII: Tongue protrusion midline, [...] BID 15 days #30 tabs 09/07/22 [Rx Epyywgluj95/09/23] paliperidone palmitate 156 mg/mL intramuscular syringe (Invega [...] Appearance Clear Urine pH 6.0 Ur Specific Showell 1.024 Urine Protein Negative Urine Glucose (UA) [...] worsening of underlying schizoaffective disorder with auditory hallucinationsdue to being unable to take medications. Consult Hospitalists for further workup of recurrent vomiting and how to manage. Continue to attempt to administer home medications since effective when taken. Encourage participation in group therapy and medication compliance Continue to monitor mental status Documented By: Nimesh Cerda MD 3 1023 Signed By: <Electronically signed by Nimesh Cerda MD> 10/29/22 1126 [facility] Work Phone: 1(643) 618-699402-11-2023 Consult note Author William Leyva [facility] August 02, 2022 10:49amNote Date/TimeFebruary 2022 10:49[place] [address] Neurology Consult Note Signed Patient: Maricarmen Anderson MR#: [id number] : 1980 Acct:[id number] Age/Sex: 41 / F Adm Date: 3 Loc: Room: [address] [place] [address] Type: ADM IN Attending Dr: Dustin Cody MD Copies to: DO Viktor Chambers MD Penola Jones, MD-NOMS~ HPI Consult Date: 08/02/22 Dog Handler: William Leyva, DO PMFSH Vaccinated for COVID-19?: No Medical History [...] and history of a cardiac arrhythmia that requiredpacemaker implantation. Also with some psychiatric history, and [...] tremors. Reflexes normal throughout. No pathologic reflexes. Lig ht touch is normal. Vibratory sensation is normal. Normal rapidly alternating movements. No limb dysmetria with fzeodm-wvgp-abiotk testing. DATA REVIEW: CT head from December 13, 2020 personally reviewed and axially shows a crowded foramen magnum with bilateral cerebellar lingula visible in the foramen magnum. MRI brain February 19, 2020 personally reviewed and shows 6 to 7 mm of bilateral cerebellar tonsillarprotrusion through the foramen magnum. MRI cervical spine from November 13, 2020 at [facility] report reviewed and showed 6 [...] magnet and she gets her imaging at [facility]). I also presume that she [...] vaginal delivery under neuraxial blockade. Heather GARFIELD, Al Jemal BH, Ashley GORDON, Ej S, Harry G, Shanique AM. Management and outcomesof women with Chiari malformations: A 14 years retrospective case series. Eur J Obstet Gynecol Reprod Biol. 2018 Apr;230:1-5. doi: 10.1016/j.ejogrb.2018.09.006. Epub 2017Mar 01. PMID: 67161267. Alejandro R, Maribel R, Vahid Y, Young BC, Nura R, Anusha R, Gavin PATINO, González EM. Chiari I malformation and : a comprehensive review of the literature to address common questions and to guide management. Acta Neurochir ([place]ien). 2019;162(7):2714-7739. doi: 10.1007/e31799-451-17447-4. Epub 2019Oct 07. PMID: 46616888. Code(s): G93.5 - Compression of brain Status: Acute Documented By: William Leyva DO 08/02/22 1032 Signed By: <Electronically signed by William Leyva DO> 08/02/22 1049 [facility] Work Phone: 1(515) 951-921101-26-2023 Discharge summary Author Eduardo Swain [facility] July 17, 2022 12:17pmNote Date/TimeJanuary 2022 12:16pm[place] [address] Discharge Summary Signed Patient: Maricarmen Anderson MR#: [id number] : 1980 Acct:[id number] Age/Sex: 41 / F Adm Date: 3 Loc: 1S Room: [address] [place] [address]: Eduardo Swain MD Copies to: MD Viktor Duncan MD~ Providers Date of Discharge: 07/17/22 Discharging Provider: Eduardo Swain Primary Care Provider: Viktor Bradford Consults: 07/15/22 13:18 Consult to Case Management [...] are telling her to kill herself in [place].? She denied any suicidal thoughts at this time.? She stated that she has been on Abilifyfor roughly 1 year and overall it has been helping.? She stated that she has been eating okay and sleep has been okay as well. Past psych history: Major depressive disorder with psychotic features Past hospitalizations: History of past psychiatric hospitalizations Past suicide attempts: yes-reports Tylenol overdose, overdose on sleeping pills Family psych history: father-bipolar disorder, aunt-placed in penitentiary for much of life d/t behavioral problems with underlying psychiatric condition Home medications: Effexor, Abilify, Trazodone, Vistaril Alcohol and drug use: Denies use of alcohol, recreational drugs, tobacco. Living: lives at home with 14-year-old son Employment: [employer] in [place] Patient was restarted on her home medications. [...] to harm her child during her hospitalization. Chandler leone was future oriented and looking forward to [...] from family at home and felt comfortable withthe plan. Condition Condition at Discharge: Stable Status [...] Regular diet No activity restrictions Instructions: Depression, [facility] [place] Instructions Prescriptions: New aripiprazole [...] 30 Days Qty: 30 0RF Follow Up: [facility] Hotline [Outside] [facility] [Outside] Documented By: Eduardo Swain MD 07/17/221213 Signed By: <Electronically signed by Eduardo Swain MD> 07/17/22 [facility] Work Phone: 1([phone]) 827-181201-25-2023 Progress note Author Eduardo Swain [facility] July 16, 2022 12:37pmNote Date/TimeJan2022 12:37pmNew [place] [address] Psychiatry Progress Note Signed Patient: Maricarmen Anderson MR#: [id number] : 1980 Acct:[id number] Age/Sex: 41 / F Adm Date: 3 Loc: Room: [address] [place] [address] Type : ADM IN Attending Dr: Eduardo [...] <Electronically signed by Eduardo Swain MD> 07/16/22 [facility]7 [facility] Work Phone: 1([phone]) 943-666501-24-2023 History and physical note Author Eduardo Swain [facility] July 15, 2022 2:28pmNote Date/TimeJanuary 2022 2:28pm[place] [address] Psychiatry H&P Signed Patient: Maricarmen Anderson MR#: [id number] : 1980 Acct:[id number] Age/Sex: 41 / F Adm Date: 3 Loc: Room: [address] [place] [address] Type: ADM IN Attending Dr: Eduardo Swain MD Copies to: MD Viktor Duncan MD~ Date of Service: 07/15/2022 HPI History of Present Illness History of present illness: Ms. Anderson is a 41 year old female who presented due to concern for hallucinations and paranoia. She reported that some of them are command in nature telling her to kill herself. She stated that shewas seeing her outpatient psychiatrist today and voiced those are not hallucinations. She stated that the symptoms have been worsening over the past couple days but have been ongoing for the past fewweeks. She reported that they are telling her [...] Family psych history: father-bipolar disorder, aunt-placed in penitentiary for much of life d/t behavioral problems with underlying psychiatric condition Home medications: Effexor, Abilify, Trazodone, Vistaril Alcohol and drug use: Denies use of alcohol, recreational drugs, tobacco. Living: lives at home with 14-year-old son Employment: [employer] in [place] Review of symptoms: Constitutional: Denies chills and [...] CNXI: Shoulder shrug strong, equal bilaterally, CNXII: Tongueprotrusion midline, movement symmetrical. Extrem: normal to inspection [...] Cloudy A Urine pH 5.5 Ur Specific Showell 1.010 Urine Protein Negative Urine Glucose (UA) [...] signed by Eduardo Swain MD> 07/15/22 1428 [facility] Work Phone: [phone]) 109-452707-07-2022 Miscellaneous Notes* Telephone Encounter - BYRON Richter [...] thinks she will need the port. Dr Johnson originally placed the port. BYRON Richter documented in this encounterTri[facility] Miscellaneous Notes* Telephone Encounter - Kathi [...] was ruled out. She last saw Dr. Johnson in 10/2020. She last saw Dr. Gibson in 08/2018. She states she will go to a [facility] ER because local ER doesn't [...] calling: self Call patient at: at home [phone] (home) [phone] (cell) Was an appointment scheduled: No Closing statement: Symptom Call: Thank you for calling [facility], your call is very important. A nurse will call in approximately 2-4 hours during business hours. If this is an emergency, please contact 911. Uyen Jose De Jesus documented in this encounterTrihealth [facility]08-09-2021 History of Present illness [id number] you F with known Chiari malformation and suspected ideopathic intracranial hypertension presentsfor evaluation of neck pain, arm pain, and balance problems. She has been dealing with this for several years but it has worsening over the past few months. The pain radiated down from her neck to her back and down both arms.[facility] Work Phone: 1(753) 411-202006-08-2021 NoteHNO ID: [id number] Author: Emelia Baldwin MD Service: ? Author [...] discussing the plan of care Emelia Baldwin, [facility]05-25-2021 NoteHNO ID: [id number] Author: RT Argentina(R) Service: Radiology Author Type: Garbage Truck Dispatcher Type: Progress Notes Filed: 11/13/2020 3:15 PM [...] MARTIN/ RT Argentina(R) November 13, 2020 3:13 [facility]05-25-2021 NoteHNO ID: [id number] Author: Yuni Parry RN Service: Nursing Author [...] Anderson DATE: November 13, 2020 TIME: 1:07 [facility]05-25-2021 NoteHNO ID: [id number] Author: Dakota Moreno RN Service: Radiology Author [...] Dakota Moreno RN November 13, 2020 3:18 [facility]05-25-2021 NoteHNO ID: [id number] Author: RT Duarte(Liz) Service: Radiology Author Type: Garbage Truck Dispatcher Type: Progress Notes Filed: 11/13/2020 10:28 AM [...] BY: RT Duarte(R) November 13, 2020 10:28 [facility]05-23-2021 NoteHNO ID: [id number] Author: Vicente New MD Service: General Surgery [...] LIPASE 21 SIGNATURE: Lucero Wheeler DO Pager: [phone] DATE: 11/11/2020 TIME: 8:28 AM [facility] STAFF PHYSICIAN NOTE OF PERSONAL INVOLVEMENT [...] 11, 2020 TIME of SERVICE: 6:19 [facility]05-22-2021 NoteHNO ID: [id number] Author: Vicente New MD Service: General Surgery [...] LIPASE 21 SIGNATURE: Lucero Wheeler DO Pager: [phone] DATE: 11/10/2020 TIME: 10:07 AM [facility] STAFF PHYSICIAN NOTE OF PERSONAL INVOLVEMENT [...] 10, 2020 TIME of SERVICE: 9:27 [facility]05-21-2021 NoteHNO ID: [id number] Author: Mechelle Connolly PharmD Service: Pharmacy Author Type: Pharmacist Type: Plan of Care Filed: 11/09/2020 1:40 PM Note Text: PHARMACY MEDICATION REVIEW Patient Name: Maricarmen Anderson : 1980 The following medications were updated within the [employer] medication list: Medications ADDED to [employer] medication list ? Abjovy 225/1.5 inj monthly Medications CHANGED on [employer] medication list ? Ativan 1mg po at bedtime Medications REMOVED from [employer] medication list ? NS 1000mL infusions ? Sertraline 200mg ? topiramate 25mg ? protonix liquid ? Lamotrigine 25mg ? Emgality Additional comments: N/A The below information represents the best possible medication history: Yes Medication history completed by: Pharmacist: Kaz KoenigD Source of history: Patient: Reliability of source: Appears reliable, clearly identified: Medication name, Medication dose, Medication frequency and Timing of last dose, Pharmacy records: fill history and OARRS Medication nonadherence identified: No barriers noted Reconciliation completed: No, patient not yet admitted. Patient interested in Bedside Delivery Services or using OP Pharmacy at discharge? Unable to assess Preferred outpatient pharmacy: e- [facility]/pharmacy #[id number] [place] [address] - [address] [facility] [phone] [place] [address] Allergies: Dilaudid [Hydromorp* Itching Prior to Admission [...] hours as needed. Yes Mechelle Connolly, PharmD 11/09/2020[facility]05-19-2021 NoteHNO ID: [id number] Author: Clemente Johnson MD Service: ? Author Type: Physician Type: Progress Notes Filed: 11/07/2020 4:52 PM Note Text: Established VIRTUAL CONSULT NAME: Maricarmen Anderson CLINIC NO: [id number] DATE OF SERVICE: November 07, 2020 I [...] further workup at home vs coming to [place] - If get's worse, then she will come back to [place] During this patient visit I have spent approximately 30 minutes slmc-jg-hzjo with the patient and over half the time was devoted to counseling and/or coordination of care. We discussed in depth the possible surgical treatment of gastroparesis and options involved. Clemente Johnson MD PAST HISTORY PAST MEDICAL HISTORY Diagnosis Date - Acute venous embolism and thrombosis of brachial vein ([facility] 2013 due to IV infiltrate, 2013, also on OCPs - Eosinophilic esophagitis - Gastroparesis - GERD (gastroesophageal reflux disease) - History of gastric bypass complications - Obesity, Class III, BMI 40-49.9 (morbid obesity) ([facility]) - Port-A-Cath in place patients right upper [...] (0600/1600). - cholecalciferol (VITAM (more content not included)...[facility]04-30-2021 NoteHNO ID: [id number] Author: Clemente Johnson MD Service: ? Author Type: Physician Type: Progress Notes Filed: 10/19/2020 9:56 AM Note Text: Established VIRTUAL CONSULT NAME: Maricarmen [facility] NO: [id number] DATE OF SERVICE: October 19, 2020 I [...] 7 days. No erythema. Pain Seen by [facility] as IP 09/29/20 - No malnutrition Last [...] with me later this week with either Math[employer]ee message or a phone call concerning her J-tube site. -Follow-up visit in the summertime for those gastrectomy labs -I think some of her abdominal pain is related to her recent J-tube dislodgment. If is not improved by late November and then will do further work-up. This point is not debilitating. During this patient visit I have spent approximately 25 minutes cssh-oj-afod with the patient and over half the time was devoted to counseling and/or coordination of care. We discussed in depth the possible surgical treatment of gastroparesis and options involved. Clemente Johnson MD PAST HISTORY PAST MEDICAL HISTORY Diagnosis [...] 250 mg by m (more content not included)...[facility]04-28-2021 NoteHNO ID: [id number] Author: Doug Duncan PA-C Service: ? Author Type: Physician Locomotive Mechanic Type: Progress Notes Filed: 10/22/2020 12:29 PM Note Text: Dr. Johnson, I see you've been involved with this [...] you. LORENE Levy October 17, 2020 2:20 [facility]04-28-2021 NotePatient Outreach ([facility]) ANYMARICARMEN RGECO ([id number]) 1980 F T Date Time Provider Department 10/17/20 DOUG DUNCAN During your visit today, we recorded the following information about you: Doug Duncan PA-C 10/22/2020 12:[address] Johnson, I see you've been involved with this [...] 05/25/2020 Encounter Status:Closed by DOUG DUNCAN on 10/22/20[facility] 09-29-2020 NoteHNO ID: [id number] Author: Elissa Medina MD Service: General Surgery [...] monitor closely. Elissa Medina DO General Surgery, PGY-1SP[facility]12-[facility]-2020 NoteHNO ID: [id number] Author: Kiara VasquezRnNorth Lyon RN Service: Care Management Author Type: [...] Care Physician Primary Care Physician Name/Phone: Vilma Bradford [phone] TRANSPORTATION ARRANGEMENTS: Transportation Arrangements: Car ADDITIONAL CONTACT RESOURCES: none Needs Prior to Discharge: Ready for Discharge;Nutrition Enteral Arrangements IMM Follow Up Copy Given: Yes Copy given to:: Patient Method: In Person Pt has been cleared for dc today to home with self care and resumption of TF from [facility]. New RX has been obtained and sent to [facility]. Due to late timing of receiving the RX, [facility] will not be able to order [...] 29, 2020 TIME: 4:10 PM PAGER/CONTACT #: [phone] Note HNO ID: [id number] Author: Deirdre Dejesus Service: General Surgery Author Type: Resident Type: Progress Notes Filed: 05/29/2020 7:13 AM Note Text: Attestation signed by Clemente Johnson at 05/29/2020 4:17 PM Attending Note I evaluated the patient and personally participated in the edward components. I agree with the resident's findings and plan with the following revisions and/or additions: Patient feels better on Local Mat[employer]. Given letter about incidentals (Renal mass and pelvic cyst). Ok for DC today Signature: Clemente Johnson MD Date: 05/29/2020 Time: 4:09 PM PROGRESS [...] Phos Recent Labs 05/29/20 0530 05/28/20 0530 12/06/20 0618 WBC 4.27 3.34* 3.72 HB 8.4* 8.2* 8.0* HCT 27.4* 26.2* 25.7* PLT 148* 157 150 NA 139 142 142 K 3.9 3.4* 3.6* CHLOR 106* 106* 106* CO2 23 29 24 BUN 8 6* 5* CREAT 0.78 0.68 0.70 GLUC 88 86 99 CA 9.2 9.1 8.8 SIGNATURE: Deirdre Dejesus DO Pager: [phone] DATE: 05/29/2020 TIME: 7:05 [facility]12-07-2020 NoteHNO ID: [id number] Author: Kiara (Rn) LAURYN Lyon Service: Care Management Author Type: [...] 28, 2020 TIME: 10:19 AM PAGER/CONTACT #: [phone] Note HNO ID: [id number] Author: Raleigh Srivastava DO Service: General Surgery [...] imaging surveillance. Raleigh Srivastava DO General Surgery, PGY-3SP[facility]12-06-2020 NoteHNO ID: [id number] Author: Deirdre Dejesus Service: General Surgery Author Type: Resident Type: Progress Notes Filed: 05/27/2020 7:02 AM Note Text: Attestation signed by Clemente Johnson at 05/27/2020 4:01 PM Attending Note I evaluated the patient and personally participated in the edward components. I agree with the resident's findings and plan with the following revisions and/or additions: Continued TF intolerance, will dw nutrition about changing to [employer], Plan on EGD tomorrow to R/o esophagitis/marginal ulcer, CT kidney not diagnostic, will dw radiology need for MRI vs outpatient imaging in a few months Signature: Clemente Johnson MD Date: 05/27/2020 Time: 4:00 PM PROGRESS [...] -- 1.9 SIGNATURE: Deirdre Dejesus DO Pager: [phone] DATE: 05/27/2020 TIME: 6:55 [facility]12-05-2020 NoteHNO ID: [id number] Author: Idalia VasquezRn) LAURYN Cohen Service: Care Management Author Type: Registered Nurse Type: Care Mgt Initial Assessment Filed: 05/26/2020 2:22 PM Note Text: CARE MANAGEMENT: ASSESSMENT AND DISCHARGE PLAN SERVICE DATE: May 26, 2020 SERVICE TIME: 2:17 PM PRIMARY CARE PHYSICIAN: Viktor Bradford MD ADMISSION STATUS: Observation Ms Anderson admitted [...] to Discharge: None MEDICAL: BLUE ACCESS 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 Last discharge within 30 days: No Advance Directive: Current Advance Directive: None Healthcare Recruiter Attempted to Assist with AD Completion: Yes [...] supplies Has the Patient Been in a Group Home Facility in the Past 30 days?: [...] Completely I feel financially burdened by my egc-mr-ygoyua expenses for my prescription medication:: 0 - Disagree Completely Risk Score: 0 Patient is categorized as: Low risk < 2 Are you interested in bedside delivery of your medications? No Is Patient Psychosocially Complex?: No ASSESSMENT AND PLAN: Medical Needs: Medical Needs: Two or more chronic diseases;Nutritional Nutrition Needs: Tube Feed Psychosocial Needs: FREEDOM OF CHOICE EXPLAINED: [place] of Choice Given: Yes Level of Care Discussed: Other: See Comment(home pharmacy) Provider list within the patient's requested geographic area shared with the patient/family: No Reason: Patient active with [facility] for tubefeeding and planning to continue at discharge POTENTIAL TRANSITION PLANS Home;Home Care Pharmacy SIGNATURE: Idalia Cohen RN PATIENT NAME: Maricarmen Anderson DATE: May 26, 2020 TIME: 2:16 PM PAGER/CONTACT #: [phone] Note HNO ID: [id number] Author: Interface Note Service: ? Author Type: ? Type: Progress Notes Filed: 05/26/2020 3:18 AM Note Text: Epic Scheduled Downtime: 05/26/2020 1:00:00 AM to 05/26/2020 3:06:00 [facility]07-13-2020 NoteHNO ID: [id number] Author: Maynor Manley DO Service: General Surgery Author Type: Resident Type: Progress Notes Filed: 01/02/2020 7:23 AM Note Text: Attestation signed by Clemente Johnson at 01/02/2020 12:30 PM Attending Note I evaluated the patient and personally participated in the edward components. I agree with the resident's findings and plan as documented and have discussed the case and management of the patient's care with the resident. Signature: Clemente Johnson MD Date: 01/02/2020 Time: 12:30 PM PROGRESS [...] home today. SIGNATURE: Maynor Manley DO PAGER: [phone] DATE: January 02, 2020 TIME: 7:22 AM [...] Lubin DO Pager: DATE: 01/02/2020 TIME: 7:10 [facility]07-12-2020 NoteHNO ID: [id number] Author: Glenny Chavarria (Sw) Service: Care Management Author Type: Merchandise Flow Associate Type: Care Mgt Progress Note Filed: 01/01/2020 [...] 01, 2020 TIME: 8:30 AM PAGER/CONTACT #: [phone] NoteHNO ID: [id number] Author: Avtar Randhawa Service: General Surgery Author Type: Resident Type: Progress Notes Filed: 01/01/2020 6:36 AM Note Text: Attestation signed by Clemente Johnson at 01/01/2020 12:15 PM Attending Note I evaluated the patient and personally participated in the edward components. I agree with the resident's findings and plan with the following revisions and/or additions: Some nausea and crampying lower abdominal pain, No TTP, keep TF at 40ml/hr, start Miralax, hospital does not have her Linzess. Signature: Clemente Johnson MD Date: 01/01/2020 Time: 12:15 PM Summary: [...] January 01, 2020 Time: 6:31 AM Pager: [phone] between 6AM-5PM weekday. [phone] for weekend and night call.[facility]07-12-[facility] NoteHNO ID: [id number] Author: Interface Note Service: ? Author Type: ? 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 No Is Patient Psychosocially Complex?: No ASSESSMENT AND PLAN: Medical Needs: Medical Needs: Two or more chronic diseases Psychosocial Needs: Psychosocial Needs: None FREEDOM OF CHOICE EXPLAINED: [place] of Choice Given: No Reason Not Given: No placements necessary POTENTIAL TRANSITION PLANS Patient active with [facility] in the community for tube feeding . SCOT CM to follow up with patient as to plan . PEJ tube Observation status. EMR reviewed. 5:00pm : [facility] indicates that Osmolite 1.5 , 1200 ml daily , 50ml/hour , free water flush at 100ml 6x a day. EMPERATRIZ Rodriguez SIGNATURE: EMPERATRIZ Hernandez PATIENT NAME: Maricarmen Anderson DATE: December 31, 2019 TIME: 3:09 PM PAGER/CONTACT #: [phone] NoteHNO ID: [id number] Author: Interface Note Service: ? Author Type: ? Type: Progress Notes Filed: 12/31/2019 3:12 AM Note Text: Epic Scheduled Downtime: 12/31/2019 1:00:00 AM to 12/31/2019 2:45:23 [facility]12-17-2019 History of Past illness Narrative* ProblemNoted DateResolved DateNausea & oizarbts82Dislodged jejunostomy tube05/17/2019 05/18/20191951Omyazas72SyncopeHeadache Headache in front of head Last Assessment & Plan: Assessment: - Frontal headache for past 2-3 days - Some photophobia - denies visual changes - intermittent dizziness with standing, this is not new PLAN: - headache cocktail PRN - MRI brain - EEG Altered Overview: Altered Mentation beginning on 02/26, thought due to UTI initially. Placed on CIpro course of ABX without improvement presented to several [facility] ED and admitted once to [facility] with Negative MRI/EEG work up Continues to [...] Cipro and presented to OSH [facility] and had a negative culture, antibiotics were stopped - She had an MRI/EEG workup at [facility] - negative - Continues symptoms- confusion, memory loss, slow to respond, slowed speech, numbness intermittently in upper extremities. New frontal headache over past 2-3 days, no visual changes. PLAN: - EEG - MRI kem [facility] - Thiamine, B6, B12, Ammonia, Lead, niacin, Ferritin, copper, Vit E pending - PRN headache cocktail - Neurology consulted Nausea & zqifrhds44Hypokalemia Overview: K 3.3, likely 2/2 poor oral intake, replaced. Abdominal pain Overview: - Hx of cholecystectomy and appendectomy. [...] anticoagulation. -Pain and Nausea control. Nausea and xiocpgkg40 Overview: Please see abdominal pain for more details. Zofran prn. documented as of this encounter (statuses as of 09/18/2021) [facility]12-17-2019 History of Past illness Narrative* ProblemNoted Date Resolved DateNausea & uoralvmy68Dislodged jejunostomy tube Syncope10/Syncope10/ Aqwmryoa84/Headache in front of head Last Assessment & Plan: Assessment: - Frontal headache for past 2-3 days - Some photophobia - denies visual changes - intermittent dizziness with standing, this is not new PLAN: - headache cocktail PRN - MRI brain - EEG Altered fbuucnwx37 Overview: Altered Mentation beginning on 02/26, thought due to UTI initially. Placed on CIpro course of ABX without improvement presented to several OSH ED and admitted once to [facility] with Negative MRI/EEG work up Continues to [...] Cipro and presented to OSH [facility] and had a negative culture, antibiotics were stopped - She had an MRI/EEG workup at [facility] - negative - Continues symptoms- confusion, memory loss, slow to respond, slowed speech, numbness intermittently in upper extremities. New frontal headache over past 2-3 days, no visual changes. PLAN: - EEG - MRI kem [facility] - Thiamine, B6, B12, Ammonia, Lead, niacin, Ferritin, copper, Vit E pending - PRN headache cocktail - Neurology consulted Nausea & kginjdvd50Hypokalemia Overview: K 3.3, likely 2/2 poor oral intake, replaced. Abdominal pain Overview: - Hx of cholecystectomy and appendectomy. [...] anticoagulation. -Pain and Nausea control. Nausea and ogpivgcg33 Overview: Please see abdominal pain for more details. Julianna prn. documented as of this encounter (statuses as of 12/26/2021) [facility] complaint Narrative - Reported* Patient is being seen for an initial Neurosurgical evaluation. * History of Chiari malformation. Having neck pain and numbness and tingling in her face and arms. Had seen [facility] doctor, told her not warranted at this time. [facility]Vo[facility]zqnotjn[facility]-QCMXK Work Phone: Evaluation + Plan note No data available for this section [facility] evaluation + Plan note Future Appointments Appointment Date:05/03/2024 09:00:00 AM Scheduled Provider:ESTELA CHUNG PA-C Location:[facility] Appointment Type:URO Office Visit [facility] evaluation + Plan note Future Appointments Appointment Date:06/02/2024 02:20:00 PM Scheduled Provider:ESTELA CHUNG PA-C Location:[facility] Appointment Type:URO Office Visit [facility] [place] Evaluation note* Diagnosis Onset Date Resolution Status Advanced maternal age affecting pregnanc y, antepartum acuteAnemiaacuteBMI 35.0-35.9,adultacuteDepressionacuteFirst trimester acuteHistory of induced hypertensionacuteMajor [id number] Major depression with psychotic featuresacutePregnancyacutePTSD (post-traumatic stress disorder)acuteUTI (urinary tract infection)acute [facility] Work Phone: Evaluation noteNo assessment information available [facility] Work Phone: evaluation note* Diagnosis Onset Date Resolution Status Hallucinations acuteHistory of induced hypertensionacuteMajor depression with psychotic featuresacutePregnancyacuteSchizoaffective disorderacute [facility] Work Phone: Evaluation note* Diagnosis Onset Date Resolution Status Hallucinations acuteHistory of induced hypertensionacuteMajor depression with psychotic featuresacutePregnancyacuteSchizoaffective disorderacuteChiari malformation type IacuteHistory of induced hypertensionacute [facility] Work Phone: Evaluation note* Diagnosis Onset Date Resolution Status Hallucinations acuteHistory of induced hypertensionacuteMajor depression with psychotic featuresacutePregnancyacuteSchizoaffective disorderacuteChiari malformation type IacuteHistory of induced hypertensionacute Schizoaffective disorderacuteAuditory hallucinationacuteDepression with suicidal ideationacuteSchizoaffective disorderacuteSuicide ideationacute [facility] Work Phone: Evaluation note* Diagnosis Onset Date Resolution Status Chiari malformation type I acuteHistory of induced hypertensionacuteSchizoaffective disorderacute Auditory hallucinationacuteDepression with suicidal ideationacuteSchizoaffective disorderacuteSuicide ideationacuteAuditory hallucinationsacute [facility] Work Phone: Evaluation note* Diagnosis Onset Date Resolution Status Schizoaffective disorder acuteAuditory hallucinationacuteDepression with suicidal ideationacute Schizoaffective disorderacuteSuicide ideationacuteAuditory hallucinationsacute GastroparesisacuteNausea & vomitingacuteSchizoaffective disorderacute [facility] Work Phone: Evaluation note* Diagnosis Onset Date Resolution Status Auditory hallucinations acuteGastroparesisacuteNausea & vomitingacuteSchizoaffective disorderacute [facility] Work Phone: Evaluation note* Diagnosis Onset Date Resolution Status Auditory hallucinations acuteGastroparesisacuteNausea & vomitingacuteSchizoaffective disorderacute Schizoaffective disorderacuteSuicide ideationacute [facility] Work Phone: Evaluation note* Diagnosis Pacemaker Cardiac pacemaker in situ Sick sinus syndrome (CMS/HCC) Sinoatrial node dysfunction documented in this encounter [facility] Work Phone: [phone] note* Diagnosis Pacemaker Cardiac pacemaker in situ Sick sinus syndrome (CMS/HCC) Sinoatrial node dysfunction documented in this encounter [facility] Work Phone: [phone] note* Diagnosis Pacemaker Cardiac pacemaker in situ Sick sinus syndrome (Multi) Sinoatrial node dysfunction documented in this encounter [facility] Work Phone: [phone] note* Diagnosis Pacemaker Cardiac pacemaker in situ Sick sinus syndrome (Multi) Sinoatrial node dysfunction documented in this encounter [facility] Work Phone: [phone] note* Diagnosis Pacemaker Cardiac pacemaker in situ Sick sinus syndrome (Multi) Sinoatrial node dysfunction documented in this encounter [facility] Work Phone: History and physical note Author Eduardo Swain [facility] December 12, 2022 10:19amNote Date/TimeJune 2022 10:19[place] [address] Psychiatry H&P Signed Patient: Maricarmen Anderson MR#: [id number] : 1980 Acct:[id number] Age/Sex: 42 / F Adm Date: 3 Loc: Room: [address] [place] [address] Type: ADM IN Attending Dr: Eduardo Swain [...] BID 15 days #30 tabs 09/07/22 [Rx Rumrtmfep37/22/23] ondansetron 4 mg disintegrating tablet 4 mg PO TID PRN Nausea 10/28/22 [History Confirmed 12/11/22] cholecalciferol (vitamin D3) 25 mcg (1,000 unit) tablet 50 mcg PO DAILY 30 days #60 tabs 11/01/22 [Rx Confirmed 12/11/22] cyanocobalamin (vitamin B-12) 1,000 mcg tablet 1,000 mcg PO QAM #30 tabs 11/01/22 [Rx Confirmed 12/11/22] paliperidone palmitate 234 mg/1.5 mL intramuscular syringe (Invega Sustenna) 234mg IM Q28D 12/11/22[History Confirmed 12/11/22] promethazine 12.5 mg rectal suppository 12.5 mg MA Q6H PRN Nausea And Vomiting 12/11/22 [History [...] cloudy A Urine pH 6.0 Ur Specific [place] 1.015 Urine Protein Negative Urine Glucose (UA) Normal Urine Ketones Negative Urine Occult Blood Negative Urine Nitrite Negative Ur Leukocyte Esterase 2+ H Urine RBC 0-1 Urine WBC 5-9 H Assessment/Plan (1) Schizoaffective disorder: Code(s): F25.9 - Schizoaffective disorder, unspecified Status: Acute Plan Patient presenting due to suicidal thoughts. She has also been experiencing some anhedonia and lackof motivation. 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 * Personal review of ECG and cardiac [...] needed, treatment options, risks, benefits, and imponderables. [employer] lifestyle changes and behavioral modification discussed. All questions answered in detail. Counseling over 50% visit regarding above. Patient appreciative of care. 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 * Personal review of ECG and cardiac [...] needed, treatment options, risks, benefits, and imponderables. [employer] lifestyle changes and behavioral modification discussed. All questions answered in detail. Counseling over 50% visit regarding above. Patient appreciative of care. 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 * Personal review of ECG and cardiac [...] needed, treatment options, risks, benefits, and imponderables. [employer] lifestyle changes and behavioral modification discussed. All questions answered in detail. Counseling over 50% visit regarding above. Patient appreciative of care. 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 * Personal review of ECG and cardiac [...] treatment options, risks, benefits, and i mponderables. [employer] lifestyle changes and behavioral modification discussed. All questions answered in detail. Counseling over 50% visit regarding above. Patient appreciative of care. 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 * Personal review of ECG and cardiac [...] treatment options, risks, benefits, and i mponderables. [employer] lifestyle changes and behavioral modification discussed. All questions answered in detail. Counseling over 50% visit regarding above. Patient appreciative of care. [facility] DO Work Phone: History of Present [...] needed, treatment options, risks, benefits, and imponderables. [employer] lifestyle changes and behavioral modification discussed. All questions answered in detail. Counseling over 50% visit regarding above. Patient appreciative of care. [facility] DO Work Phone: [facility] Work Phone: Hospital Discharge instructions Additional Instructions Regular Diet No Activity RestrictionsOhio State Health System Work Phone: Hospital Discharge instructions Additional Instructions Obtain BP cuff at pharmacy and obtain BP at home twice daily after resting for ten minutes prior to performing. Call Labor and Delivery for BP elevated 150/100 x 2 readings. Return Thursday08/05/2022 at 0900 for NST and BP check.[facility] Work Phone: Hospital Discharge instructions No data available for this section [facility] Hospital Discharge instructions Additional Instructions No Activity Restrictions Regular Diet continue your vitamin therapy after gastric surgery as prescribed. Your vitamin D and B12 were found low while you were i the hospital.[facility] Work Phone: Progress note No data available for this section [facility] reason for visit Narrative* Imaging (Routine) - Pending ReviewSpecialtyDiagnoses / ProceduresReferred By ContactReferred To Contact Cardiology Diagnoses Pacemaker Sick sinus syndrome (Multi) Procedures Cardiac Device Check - Remote Rita Olivia MD [address], [place] [address] [place] [id number] Phone: tel: fax: Referral IDStatusReasonStart DateExpiration DateVisits RequestedVisits [id number] Review Perform Procedure [facility] Work Phone: Summary Purpose Family History No Family History Records FoundUnknown Family Member Name Dates Details Family history of glaucoma: Father(V19.11, Z83.511) Status:ActiveFamily history of diabetes mellitus: Mother, Father(V18.0, Z83.3) Status:Active Unknown Family Member Name Dates Details Family history of glaucoma: Father(V19.11, Z83.511) Status:ActiveFamily history of diabetes mellitus: Mother, Father(V18.0, Z83.3) Status:Active Unknown Family Member Name Dates Details Family history of glaucoma: Father(V19.11, Z83.511) Status:ActiveFamily history of diabetes mellitus: Mother, Father(V18.0, Z83.3) Status:Active Unknown Family Member Name Dates Details Family history of glaucoma: Father(V19.11, Z83.511) Status:ActiveFamily history of diabetes mellitus: Mother, Father(V18.0, Z83.3) Status:Active Unknown Family Member Name Dates Details Family history of glaucoma: Father(V19.11, Z83.511) Status:ActiveFamily history of diabetes mellitus: Mother, Father(V18.0, Z83.3) Status:Active Unknown Family Member Name Dates Details Family history of glaucoma: Father(V19.11, Z83.511) Status:ActiveFamily history of diabetes mellitus: Mother, Father(V18.0, Z83.3) Status:Active Unknown Family Member Name Dates Details Family history of glaucoma: Father(V19.11, Z83.511) Status:ActiveFamily history of diabetes mellitus: Mother, Father(V18.0, Z83.3) Status:Active Unknown Family Member Name Dates Details Family history of glaucoma: Father(V19.11, Z83.511) Status:ActiveFamily history of diabetes mellitus: Mother, Father(V18.0, Z83.3) Status:Active Unknown Family Member Name Dates Details Family history of glaucoma: Father(V19.11, Z83.511) Status:ActiveFamily history of diabetes mellitus: Mother, Father(V18.0, Z83.3) Status:Active Unknown Family Member Name Dates Details Family history of glaucoma: Father(V19.11, Z83.511) Status:ActiveFamily history of diabetes mellitus: Mother, Father(V18.0, Z83.3) Status:Active Relationship Condition Age at Onset Recorded Date/T kaykay father Amyotrophic lateral sclerosis Unknown Heart diseaseUnknownNot SpecifiedDiabetes mellitusUnknownUnknown Family Member Name Dates Details Family history of glaucoma: Father(V19.11, Z83.511) Status:ActiveFamily history of diabetes mellitus: Mother, Father(V18.0, Z83.3) Status:ActiveFamily history of cardiac disorder: Father(V17.49, Z82.49) Status:Active Unknown Family Member Name Dates Details Family history of glaucoma: Father(V19.11, Z83.511) Status:ActiveFamily history of diabetes mellitus: Mother, Father(V18.0, Z83.3) Status:ActiveFamily history of cardiac disorder: Father(V17.49, Z82.49) Status:Active Relationship Condition Age at Onset Recorded Date/T kaykay father Amyotrophic lateral sclerosis Unknown Heart diseaseUnknownDeceasedUnknownNot SpecifiedDiabetes mellitusUnknownUnknown Family Member Name Dates Details Family history of glaucoma: Father(V19.11, Z83.511) Status:ActiveFamily history of diabetes mellitus: Mother, Father(V18.0, Z83.3) Status:ActiveFamily history of cardiac disorder: Father(V17.49, Z82.49) Status:Active Relationship Condition Age at Onset Recorded Date/T kaykay father Amyotrophic lateral sclerosis Unknown Heart diseaseUnknownDeceasedUnknownNot SpecifiedDiabetes mellitusUnknownfather DeceasedUnknown Relationship Condition Age at Onset Recorded Date/T kaykay father Amyotrophic lateral sclerosis Unknown Heart diseaseUnknownDeceasedUnknownmotherDiabetes mellitusUnknownfatherDeceased Unknown Advance Directives No Advanced Directives Records FoundDocuments on File TypeDate RecordedPatient RepresentativeExplanationAdvance Directives and Living WillPower of AttorneyTypeDate RecordedPatient RepresentativeExplanationAdvance Directive(s)Advance Directive(s)11/09/2020 6:23 AMAdvance Directive(s)09/28/2020 8:51 PMAdvance Directive(s)05/25/2020 3:00 PMAdvance Directive(s)12/30/2019 11:00 PMAdvance Directive(s)10/23/2019 3:21 PMAdvance Directive(s)10/23/2019 3:25 PM Advance Directive(s)08/10/2019 4:21 PMAdvance Directive(s)07/10/2019 11:55 AM Advance Directive(s)06/07/2019 12:23 PMAdvance Directive(s)06/06/2019 9:09 PM Advance Directive(s)05/25/2019 10:01 PMAdvance Directive(s)05/16/2019 2:16 PM Advance Directive(s)04/06/2019 11:46 PMAdvance Directive(s)03/27/2019 3:37 PM Advance Directive(s)03/23/2019 3:47 PMAdvance Directive(s)03/11/2019 3:58 PM Advance Directive(s)12/24/2018 8:31 PMAdvance Directive(s)12/07/2018 8:08 PMAdvance Directive(s)12/01/2018 12:19 AMAdvance Directive(s)10/20/2018 11:59 PMAdvance Directive(s)10/13/2018 11:15 AMAdvance Directive(s)10/05/2018 9:29 AMAdvance Directive(s)08/15/2018 3:08 PMAdvance Directive(s)07/26/2018 5:18 PMAdvance Directive(s)07/22/2018 2:42 PMAdvance Directive(s)05/26/2018 5:38 PMCode Status Date ActivatedDate InactivatedCommentsFull Code11/12/2020 7:42 AM11/12/2020 10:05 PMFull Code Order Discussed With:PatientFull Code10/26/2019 3:29 PM10/26/2019 6:42 PMFull Code08/11/2019 10:46 AM08/15/2019 6:10 PM Advance Directive Response Recorded Date/ [...] materal age affecting ,antepartu vomiting, 10 wks pregReason for VisitAdvanced maternal age affecting , antepartum Anemia BMI 35.0-35.9,adult Depression [...] leakage o99.810 anemia in . request mental evalReason for VisitHallucinations History of induced hypertension Major depression with psychotic features Schizoaffective disorder Chief Complaint Chest pain,SOB,8 mon ths 32 wk leakage o99.810 anemia in . request mental eval 37 WK IUP contractionsReason for VisitHallucinations History of induced hypertension Major depression with psychotic features Schizoaffective disorder Chiari malformation type I History of induced hypertension Chief Complaint Chest pain,SOB,8 mon ths 32 wk leakage o99.810 anemia in . request mental eval 37 WK IUP contractions iup 37 weeksReason for VisitHallucinations History of induced hypertension Major depression with psychotic features Schizoaffective disorder Chiari malformation type I History of induced hypertension Chief Complaint o99.810 anemia in . request mental eval Z36.85 37 WK IUP contractions iup 37 weeks IUP (Intrauterine ) MHP dizzy headacheReason for VisitHallucinations History of induced hypertension Major depression with psychotic features Schizoaffective disorder Chiari malformation type I History of induced hypertension Schizoaffective disorder Auditory hallucination Depression with suicidal ideation Schizoaffective disorder Suicide ideation Chief Complaint 37 WK IUP contractio ns iup 37 weeks IUP (Intrauterine ) MHP dizzy headache abd pain n/v mhpReason for VisitChiari malformation type I History of induced hypertension Schizoaffective disorder Auditory hallucination Depression with suicidal ideation Schizoaffective disorder Suicide ideation Auditory hallucinations Chief Complaint iup 37 weeks IUP (Intrauterine ) P dizzy headache abd pain n/v mhpReason for VisitSchizoaffective disorder Auditory hallucination Depression with suicidal ideation Schizoaffective disorder Suicide ideation Auditory hallucinations Gastroparesis Nausea & vomiting Schizoaffective disorder Chief Complaint dizzy headache abd pain n/v [facility] mhpReason for VisitAuditory hallucinations Gastroparesis Nausea & vomiting Schizoaffective disorder Chief Complaint dizzy headache abd pain n/v [facility] mhpReason for VisitAuditory hallucinations Gastroparesis Nausea & vomiting Schizoaffective disorder Schizoaffective disorder Suicide ideation Chief Complaint dizzy headache abd pain n/v [facility] mri clearanceReason for VisitAuditory hallucinations Gastroparesis Nausea & vomiting Schizoaffective disorder Schizoaffective disorder Suicide ideation Chief Complaint [facility] mri clearance N28.89Reason for VisitAuditory hallucinations Gastroparesis Nausea & vomiting Schizoaffective disorder Schizoaffective [...] August 31, 2024 7:28am ref by Viktor Bradford for removal of port November 07, 2024 2:52pm November 15, 2024 4:18p m gastroparesis November 17, 2024 9:32a m gastroparesis November 17, 2024 1:08p m Reason for Visit Admit Date Port-A-Cath in place November 07, 2024 2:52 pm Reason for Referral SpecialtyDiagnoses / ProceduresReferred By ContactReferred To ContactCardiology Diagnoses Pacemaker Sick sinus syndrome (CMS/HCC) Procedures Cardiac Device Check - Remote Rita Olivia MD [address] [facility] [address], [address] [place] [address] Referral IDStatusReasonStart DateExpiration DateVisits RequestedVisits [id number] Review Perform Procedure / Additional Source Comments INFORMATION SOURCE (unrecogn ized section and content) DATE CREATED AUTHOR 05/13/2019 [facility] DATE CREATED AUTHOR AUTHOR'S ORGANIZ ATION 09/27/2019 [facility] DATE CREATED AUTHOR AUTHOR'S ORGANIZ ATION 02/11/2020 [facility] DATE CREATED AUTHOR AUTHOR'S ORGANIZ ATION 11/18/2020 [facility] DATE CREATED AUTHOR AUTHOR'S ORGANIZ ATION 09/20/2021 [facility] DATE CREATED AUTHOR AUTHOR'S ORGANIZ ATION 10/31/2022 [facility] DATE CREATED AUTHOR AUTHOR'S ORGANIZ ATION 01/21/2023 [facility] DATE CREATED AUTHOR AUTHOR'S ORGANIZ ATION 01/22/2023 [facility] DATE CREATED AUTHOR AUTHOR'S ORGANIZ ATION 03/05/2023 [facility] DATE CREATED AUTHOR AUTHOR'S ORGANIZ ATION 11/06/2023 [facility] DATE CREATED AUTHOR AUTHOR'S ORGANIZ ATION 01/04/2025 [facility] DATE CREATED AUTHOR AUTHOR'S ORGANIZ ATION 03/24/2025 [facility] DATE CREATED AUTHOR AUTHOR'S ORGANIZ ATION 04/08/2025 [facility] DATE CREATED AUTHOR AUTHOR'S ORGANIZ ATION 04/15/2025 [facility] Source Comments (unrecognize d section and content) In the event this informatio n is protected by the Federal Confidentiality of Alcohol and Drug Abuse Patient Records regulations: The Federal rules restrict any use of the information to criminally investigate or prosecute any alcohol or drug abuse patient.[facility] HospitalIn the event this information is protected by the Federal Confidentiality of Alcohol and Drug Abuse Patient Records regulations: The Federal rules restrict any use of the information to criminally investigate or prosecute any alcohol or drug abuse patient.[facility] Reason for Visit (unrecogniz ed section and content) ReasonCommentsPatient UpdateSpecialtyDiagnoses / ProceduresReferred By Contact Referred To ContactCardiology Diagnoses Pacemaker Sick sinus syndrome (CMS/HCC) Procedures Cardiac Device Check - Remote Rita Olivia MD [address] [facility], [address] [address] Referral IDStatusReasonStart DateExpiration DateVisits RequestedVisits [id number] Review Perform Procedure [id number] / ProceduresReferred By ContactReferred To ContactCardiology Diagnoses Pacemaker Sick sinus syndrome (CMS/HCC) Procedures [place] - [place] [address] [address] SpecialtyDiagnoses / ProceduresReferred By ContactReferred To ContactCardiology Diagnoses Pacemaker Sick sinus syndrome (Multi) Procedures Cardiac Device Check - Remote Rita Olivia MD [facility] [address] [facility], [address] [address] Care Teams (unrecognized sec tion and content) Team Status: Active Member Role Status Dates Viktor Bradford MD Primary Care Provider Active Team Status: Active Member Role Status Dates Viktor Bradford MD Primary Care Provider Active Start: August 24, 2024 Tete Snell MDOther ProviderActiveStart: August 24, 2024 Marilin Valdez ProviderActiveStart: August 24, 2024 Team Status: Inactive Member Role Status Dates Viktor Bradford MD Primary Care Provider Active Start: August 31, 2024 End: August 31ndMarilin Iverson ProviderActiveStart: August 31, 2024 End: August 31, 2024 Team Status: Active Member Role Status Dates Viktor Bradford MD Primary Care Provider Active Start: September 26, 2024 Tete Snell , MDAttending ProviderActiveStart: September 26, 2024 Team Status: Active Member Role Status Dates Viktor Bradford MD Primary Care Provider Active Start: October 31, 2024 Emy Lemus , MDAttending ProviderActiveStart: October 31, 2024 Team Status: Inactive Member Role Status Dates Viktor Bradford MD Primary Care Provider Active Start: November 07, 2024 End: November 07, 2024Gaurav Oliver MDAttending ProviderActiveStart: November 07, 2024 End: November 07, 2024 Team Status: Active Member Role Status Dates Viktor Bradford MD Primary Care Provider Active Start: November 15, 2024 Nimesh Cerda MDAttending ProviderActiveStart: November 15, 2024 Team Status: Inactive Member Role Status Dates Viktor Bradford MD Primary Care Provider Active Start: November 17, 2024 End: November 17, 2024Gaurav Oliver MDAttending ProviderActiveStart: November 17, 2024 End: November 17, 2024 Team Status: Active Member Role Status Dates Viktor Bradford MD Primary Care Provider Active Start: November 17, 2024 Gaurav Oliver MDAttending Provider, Other ProviderActiveStart: November 17, 2024 Team Status: Inactive Member Role Status Dates Viktor Bradford MD Primary Care Provide r, Attending Provider Active Start: June 10, 2024 End: June 10, 2024 Team Status: Inactive Member Role Status Dates Vikotr Bradford MD Primary Care Provider Active Start: July 04, 2024 End: July 04, 2024Michael Han MDAttending ProviderActiveStart: July 04, 2024 End: July 04, 2024 Team Status: Active Member Role Status Tash Bradford MD Primary Care Provider Active Start: July 05, 2024 Emy Lemus , MDAttending ProviderActiveStart: July 05, 2024 Team Status: Active Member Role Status Dates Viktor Bradford MD Primary Care Provider Active Start: July 11, 2024 Tete Lawtonreyna , MDAttending ProviderActiveStart: July 11, 2024 Team Status: Active Member Role Status Dates Viktor Bradford MD Primary Care Provider Active Start: August 23, 2024 Nimesh Cerda , MDAttending ProviderActiveStart: August 23, 2024 Team Status: Active Member Role Status Dates Viktor Bradford MD Primary Care Provider Active Start: June 02, 2024 Emy Lemus , MDAttending ProviderActiveStart: June 02, 2024 Team Status: Inactive Member Role Status Dates Viktor Bradford MD Primary Care Provider Active Start: May 30, 2024 End: May 30, 2024Estela Chung , PA-CAttending ProviderActiveStart: May 30, 2024 End: May 30, 2024 Team Status: Active Member Role Status Dates Viktor Bradford MD Primary Care Provider Active Start: June 21, 2024 Nimesh Cerda , MDAttending ProviderActiveStart: June 21, 2024 Team Status: Active Member Role Status Dates Viktor Bradford MD Primary Care Provider Active Start: October 26, 2023 Aida Mckeon PA-CAttending ProviderActiveStart: October 26, 2023 Team Status: Active Member Role Status Dates Viktor Bradford MD Primary Care Provide r, Attending Provider Active Start: October 27, 2023 Team Status: Active Member Role Status Dates Viktor Bradford MD Primary Care Provider Active Start: October 28, 2023 Lucero Guevara , LPNAttending ProviderActiveStart: October 28, 2023 Team Status: Active Member Role Status Dates Viktor Bradford MD Primary Care Provider Active Start: October 29, 2023 Sujata Greenberg , DOAttending ProviderActiveStart: October 29, 2023 Team Status: Active Member Role Status Dates Viktor Bradford MD Primary Care Provider Active Start: November 09, 2023 Nimesh Cerda , MDAttending ProviderActiveStart: November 09, 2023 Team Status: Inactive Member Role Status Dates Viktor Bradford MD Primary Care Provide r, Attending Provider Active Start: November 12, 2023 End: November 12, 2023Team MemberRelationshipSpecialtyStart DateEnd Date Viktor Bradford MD [address] [place] [facility] [place] [id number] PCP - General10/18/13Team MemberRelationshipSpecialtyStart DateEnd Viktor Martinez MD [address] [place] [id number] PCP - General10/18/13 Team Status: Inactive Member Role Status Tash Bradford MD Primary Care Provider Active Cornell Mcnair MDEmerdk ProviderActiveAdeyemi Wiliam , MDAdmit Provider, Attending ProviderActiveUrbano Palma , DOOther ProviderActive Team Status: Inactive Member Role Status Tash Bradford MD Primary Care Provider Active Sascha Yañez ProviderActive Team Status: Inactive Member Role Status Tash Bradford MD Primary Care Provider Active Eduardo Swain MDAttending ProviderActive Team Status: Inactive Member Role Status Tash Bradford MD Primary Care Provider Active Delaney Vargas DOAttending ProviderActive Team Status: Inactive Member Role Status Tash Bradford MD Primary Care Provider Active Michael Cerda DOEmergency ProviderActive Team Status: Active Member Role Status Tash Bradford MD Primary Care Provider Active Urbano Palma DOAttending ProviderActive Team Status: Inactive Member Role Status Tash Bradford MD Primary Care Provider Active Urbano Palma , DOAttending ProviderActive Team Status: Active Member Role Status Tash Bradford MD Primary Care Provider Active Michael Cerda , DOEmergency ProviderActiveAdeyemi Wiliam , MDAdmit Provider, Attending ProviderActive Team Status: Inactive Member Role Status Tash Bradford MD Primary Care Provider Active Michael Cerda , DOEmergency ProviderActiveAdeyemi Wiliam , MDAdmit Provider, Attending ProviderActive Team Status: Inactive Member Role Status Tash Bradford MD Primary Care Provider Active Dustin Cody MDAdmit Provider, Attending ProviderActive Team Status: Inactive Member Role Status Tash Bradford MD Primary Care Provider Active Urbano Palma DOAdmit Provider, Attending ProviderActive Team Status: Inactive Member Role Status Tash Bradford MD Primary Care Provider Active Raffaele Mullins Jodee , DOEmergency ProviderActiveFayeraterri Cerda , MDAdmit Provider, Attending ProviderActive Team Status: Inactive Member Role Status Tash Bradford MD Primary Care Provider Active Chelsie Cortez APRJohanna ProviderActive Team Status: Active Member Role Status Tash Bradford MD Primary Care Provider Active Kevenduy Florentino , DOEmergency ProviderActiveToribio Cerda , MDAdmit Provider, Attending ProviderActive Team Status: Inactive Member Role Status Tash Bradford MD Primary Care Provider Active Keven Florentino , DOEmergency ProviderActiveToribio Cerda , MDAdmit Provider, Attending ProviderActivePoonam Dejesus RNOther ProviderActiveGlenis Palmer , RNOther ProviderActiveKatarina Garrett RNOther ProviderActiveMicmaria isabel Arana , RNOther ProviderActiveYola Orta RNOther ProviderActiveMohipolito Martin RNOther ProviderActiveRadebby Hurley MDOther ProviderActiveAnadinah Jennings MDOther ProviderActiveLisa M Dials , APRNOther ProviderActiveRonobiliz Mandel , DOOther ProviderActiveMushenrik Pedro MDOther ProviderActive Gerry Noble , DOOther ProviderActiveMike Smart MDOther Provider ActiveMarylu Kemp MDOther ProviderActiveLyyesica Hines ANP-BCOther ProviderActiveFaby Watts MDOther ProviderActiveBakanchan Hoffman MDOther ProviderActiveSintia Gan MDOther ProviderActiveSiobhan Zuniga MDOther ProviderActiveMicyoshi Espinoza , DOOther ProviderActiveDawson Branham MDOther ProviderActiveEarjenny Peterson MDOther ProviderActiveGretta Maki , SEAL DELIVERY VEHICLE OFFICER-COther ProviderActiveYonny Bazan MDOther ProviderActiveTrace Morataya MD Other ProviderActiveDimitris Joe MDOther ProviderActiveVerona Waterman , DOOther ProviderActiveNeal R Merle , DOOther ProviderActiveAnthony M Miniaci , DO Other ProviderActiveLinda Obika , APRNOther ProviderActiveRosendo Holland , Other ProviderActiveObaestefani Andrade MDOther ProviderActivePajuanis Mcnair , APRNOther ProviderActiveAlicia Callie Montana , APRNOther ProviderActiveGenesis Pinedo RNOther ProviderActive Team Status: Active Member Role Status Dates Viktor Bradford MD Primary Care Provider Active Abdelmarlene Cerda , MDAttending ProviderActive Team Status: Active Member Role Status Dates Viktor Bradford MD Primary Care Provider Active Ke Cage , DOEmergency ProviderActiveAdeyemi Wiliam , MDAdmit Provider, Attending ProviderActive Team Status: Inactive Member Role Status Dates Viktor Bradford MD Primary Care Provider Active Keifeoma Cage , DOEmergency ProviderActiveAdeyemi Wiliam , MDAdmit Provider, Attending ProviderActive Team Status: Inactive Member Role Status Dates Viktor Bradford MD Primary Care Provider Active Michael Han MDAttending ProviderActive Team Status: Inactive Member Role Status Dates Viktor Bradford MD Primary Care Provider Active Ke Cage , DOEmergency ProviderActiveAbdfredis Cerda , MDAttending ProviderActiveAdeyemi Wiliam , MDAdmit ProviderActiveTeam MemberRelationship SpecialtyStart DateEnd Date Viktor Bradford MD PCP - General03/02/20Team MemberRelationshipSpecialtyStart DateEnd Date Viktor Bradford MD PCP - General03/02/20Team MemberRelationshipSpecialtyStart DateEnd Date Viktor Bradford MD [address] [place] [id number] PCP - General03/02/20Team MemberRelationshipSpecialtyStart DateEnd Date Viktor Bradford MD [address] [place] [id number] PCP - General03/02/20Team MemberRelationshipSpecialtyStart DateEnd Date Viktor Bradford MD [address] [place] [address] [place] [address] PCP - General03/02/20Team MemberRelationshipSpecialtyStart DateEnd Date Viktor Bradford MD [address] [place] [address] [place] [address] PCP - General03/02/20 Goals (unrecognized section and content) Goals may [...] BE BASED ON THE PRIMARY CLINICAL RECORDS. [facility] [employer] [facility] provides no warranty or guarantee of the accuracy or completeness of information in this document.
[2025-05-15 11:37] LABS: INR 2.33; Prothrombin Time 22.7 sec (9.0-11.6)
[2025-05-15 11:45] VITALS: BP 135/96; PULSE 73; TEMP 36.6; O2SAT 94
[2025-05-15] MEDS: BUPIVACAINE HCL 0.25% PF 25 MG/10 ML VIAL INJ (12:41)
[2025-05-15] MEDS: LIDOCAINE HCL 2% 400 MG/20 ML MDV 15 ML INJ (12:41)
[2025-05-15 12:42] VITALS: BP 115/84; BP 117/83; PULSE 70; PULSE 77; O2SAT 95; O2SAT 96
--- NOTE | 2025-05-15 12:44 | W.PM.PROCNOT ---
Date of procedure: 05/15/25 Pre-op diagnosis: Pain due to cervical spondylosis without myelopathy Post-op diagnosis: same as pre-op Procedure: Procedure: Bilateral C4-5, 5-6 medial branch block Medications: Bupivacaine 0.25% 6cc The patient was seen and examined in the preoperative holding area.? The informed consent was obtained and placed on the chart.? The patient was brought to the medical procedure unit and placed in the prone position.? A timeout was completed verifying correct patient, procedure site, positioning, plan, and special equipment.? Using aseptic technique, the needle was placed at left C4.? Under direct fluoroscopic visualization, a Quincke tip needle was advanced to the midpoint of the waist of the articular pillar at the respective medial branch segment. The above-mentioned injectate was placed in a 1 mL aliquot proceeded by negative aspiration.? The needle was removed.? The procedure was completed at all left C5, 6. The same procedure, at the same levels, was then completed on the right side. Insertion site was covered.? Patient was taken to the postprocedural recovery area and monitored for an appropriate length of time before found suitable for discharge in the accompaniment of a responsible adult. Anesthesia: Local Surgeon: Tete Snell Pathology: none sent Condition: stable Disposition: no change
== END 2025-05-15 12:47 | disposition home or self-care (01) ==
PROVIDERS: PCP Family Medicine; Visit Provider Anesthesiology
DX: M47.812 Spondylosis without myelopathy or radiculopathy, cervical region (principal); G89.29 Other chronic pain; Z79.01 Long term (current) use of anticoagulants
CPT/HCPCS: 36415; 64490; 64491; 84703; 85610; J0665

== ENCOUNTER 2025-05-22 12:35 | Outpatient (RCR) | payer MEDICARE, MEDICAID, SELFPAY | END 2025-06-21 13:01 | disposition home or self-care (01) | LOC: MM 12:35 | PROVIDERS: PCP Family Medicine; Visit Provider Internal Medicine | DX: Z51.81 Encounter for therapeutic drug level monitoring (principal); Z79.01 Long term (current) use of anticoagulants; I26.99 Other pulmonary embolism without acute cor pulmonale | CPT/HCPCS: 85610; G0463 ==

== ENCOUNTER 2025-05-24 09:42 | Outpatient (OUT) | payer MEDICARE, MEDICAID, SELFPAY ==
--- OUTSIDE RECORDS SUMMARY | 2025-05-24 09:46 | XMS_ITS | Clinical Summary ---
Author Organization [facility] Address [address] [place] [address] Care Team Providers Care Manager Field Services Name Role Phone Sharyn Bradford MD Primary Care Provider [phone] Allergies Active AllergyReactionsCriticalityNoted DateCommentsHydromorphone (Bulk)Itching Qwpgvi0503/28/2019 Medications MedicationSigDispense QuantityRefillsLast FilledStart DateEnd DateStatus promethazine [...] Problems ProblemNoted DateDiagnosed DateFlank pain11/09/2020Non-intractable vomiting with rhgvcg2405/25/2020Abdominal pain10/23/2019Malfunction of jejunostomy tube 07/10/2019Obesity, Class II, BMI 35-39.918474Qjassnau07/29/2019Chiari I yijfvhgifesh86/07/2019Acute alteration in mental kjgbjp0303/11/2019Dehydration 12/24/2018S/P partial /18/2019Stricture of mtndzxy8712/07/2018 Anastomotic stricture of japvtgj0511/02/20188926Ycucwc17/02/2019Mild protein-calorie jomlamzpwenu88/27/2019Intractable nausea and tieqbycm09/24/2019Obesity, Class III, BMI >= 40007/22/20187268Kpyzeadjhmhvh85/29/2018 Overview (03/12/2019): patient has known gastroparesis. G-tube in place and is on tube feeds. s/p surgery with removal of significant portion of stomach Plan continue with tube feeds Assessment & Plan (03/12/2019 11:55 AM EDT): Assessment: - history of gastroparesis - J-tube in place, tube feeds PLAN: - Continue tube feedings Dmnrgyjqneb26/05/2014Eosinophilic vfrmzovyten38/22/2014 Overview (11/14/2013): -Recent diagnosis. -Biopsy proven per patient. -Was on Flovent then a five day course of prednisone was given (completed) Plan: Continue Flovent. Vision jpwsewqsoxgnm61/05/2014 Overview (10/25/2013): Pt complains of seeing white spots, her visual field and acuity do not seem to be affected. Ophthalmology consulted, eye exam unremarkable Her dizziness improved, orthostatic negative, no ear symptoms. Zbuxqc7910/24/2013 Overview (10/24/2013): Acute, likely 2/2 vaginal bleed, plan for IUD as out-pt. Hgb stable Nvyptlkltry02/03/2014 Overview (10/25/2013): likely 2/2 narcotic, passing gas, does not feel constipated, refuses cotton seed enema Will D/C home with senna and Miralax Vaginal uvaxajjg25/01/2014 Overview (10/25/2013): Pt had her period started week ago was slowing down, got much worse and heavier after Heparin drip,soaks 1 pad Q15 min, now Q30 minutes. . Pt denies dizziness today, VS stable, Hgb relatively stable Benefits/risk explained to pt. Vascular Medicine consulted for vaginal bleed. Continue AC for now. Gynecology consulted as well, they recommended IUD for tribunal member management and If becomes hemodynamically unstable or acutely symptomatic with vaginal bleeding, recommend Megace 40mg BID for cessation of bleeding. 5/4: Vaginal bleed slowed down, changes pad only every few hours, Hgb relatively stable, VS stable,pt is asyptomatic, dizziness is better 5/5: 2 pads last 24 hours, CBC and VS stable 10/25: Almost gone. Gynecology as out-pt. Cokebbzrqir70/01/2014cute thrombosis of left axillary vein10/20/2013rachial vein thrombosis, left10/20/2013 Overview (11/14/2013): -Recent diagnosis 10/2013 -On coumadin. -INR on presentation 2.8 - INR 2.3 today Plan: Dispo planning Anticoagulation management xakhwivpu71/01/2014cute embolism and thrombosis of superficial vein of both upper mxbvbhcavxc81/01/2014rm edema10/20/2013Left arm xjfmjloe41/29/2014 Overview (10/25/2013): Reported Hx of her mother [...] Resolved Problems ProblemNoted DateDiagnosed DateResolved DateNausea & fhrrurqg30/17/2019 06/09/2019Dislodged jejunostomy tubeSyncope10/08/15/20195199Uengucd37/Headache10/Headache in front of head Assessment & Plan (03/12/2019 11:56 AM EDT): Assessment: - Frontal headache for past 2-3 days - Some photophobia - denies visual changes - intermittent dizziness with standing, this is not new PLAN: - headache cocktail PRN - MRI brain - EEG Altered rhrwxzyg04 Overview (03/12/2019): Altered Mentation beginning on 02/26, thought due to UTI initially. Placed on CIpro course of ABX without improvement presented to several OSH ED and admitted once to [facility] with Negative MRI/EEG work up Continues [...] Placed on Cipro and presented to OSH [facility] and had a negative culture, antibiotics were stopped - She had an MRI/EEG workup at [facility] - negative - Continues symptoms- confusion, memory loss, slow to respond, slowed speech, numbness intermittently in upper extremities. New frontal headache over past 2-3 days, no visual changes. PLAN: - EEG - MRI kem MYRIAM - Thiamine, B6, B12, Ammonia, Lead, niacin, Ferritin, copper, Vit E pending - PRN headache cocktail - Neurology consulted Nausea & irvyltka17Hypokalemia Overview (10/23/2013): K 3.3, likely 2/2 poor [...] anticoagulation. -Pain and Nausea control. Nausea and zpyzhmet79 Overview (10/19/2013): Please see abdominal pain for [...] care, and heating?Not hard at all10/24/2019PHQ-2AnswerDate RecordedPHQ2 Igroa605 Hunger Vital SignAnswerDate RecordedWithin the past 12 [...] lower riskNot on file05/26/2020Data from: https://www.neighborhoodatlas.medicine.[facility].edu/. Last address used for calculationNot on file05/26/2020CommentsNoSex and Gender Information ValueDate RecordedSex Assigned at DktsuRwjkor98/29/2021 8:13 PM EDTLegal Sex Sazyrt9305/23/2012 9:42 AM ESTGender ZcmozqggUddjfl60/29/2021 8:13 PM EDTSexual QumwvkadkgqTiollmlf60/29/2021 8:13 PM EDT Last Filed Vital Signs Vital SignReadingTime TakenCommentsBlood Meaychzo300/63011/13/2020 2:52 PM EDT Iaitj8638/25/2021 2:52 PM LRPTrpdvklelzq05.5 ??C (97.7 ??F)11/12/2020 11:40 AM EDTRespiratory Rsuf856911/12/2020 11:40 AM EDTOxygen Ghmxfpuanl961%11/13/2020 2:52 PM EDTInhaled Oxygen Concentration--Mzimpd07.5 kg (215 lb)11/09/2020 2:15 PM EDT Obysaz074.6 cm (5' 5.98 )11/09/2020 2:15 PM EDTBody Mass Index34.72011/09/2020 2:15 PM EDT Plan of Treatment Health MaintenanceDue DateLast DoneCommentsAnxiety Bafebgphx16/11/2001Depression Gonyptucc70/11/2001HIV Zgapvlxtb77/11/2001Hepatitis C Twvoylrbx20/11/2001 DTaP,Tdap,Td Vaccine (1 - Tdap)2001Hepatitis B Vaccine (1 of 3 - 19+ 3- dose series)2001HPV Vaccine (1 - 3-dose SCDM series)2009Cervical Cancer Qtgsoobba19Mammogram Hgbvnhkwj09/11/2023Covid-19 Vaccine (1 - season)2025Influenza Vaccine (#1)2025 05/27/2020, 08/29/2019, 04/10/2019, Additional history exists Medical Devices ImplantedTypeAreaManufacturerDevice IdentifierShelf Expiration DateModel / Serial / LotSt Hudson 46 Implanted:Qty: 1 on 04/11/2020LeadHeartST [id number] / / St [place] 52 Implanted:Qty: 1 on 04/11/2020LeadHeartST [id number] / / St [place] Assurity Mri [id number] Implanted:Qty: 1 on 04/11/2020PacemakerChest WallST [id number] / / [id number]-2272 Assurity [id number] Implanted:04/11/2020 (Quantity not on file)PacemakerST [id number] Assurity MRI / [id number] / Tray Port-A-Cath Ii 7.8fr 2.6mm 1.6mm Polysulfone Titanium Polyurethane 76 - [id number] Implanted:07/22/2018 at [facility] (Quantity not on file)PortRight: Chest WallSPROMEDICA DE[facility] MEDICAL ASD [id number] / / [id number] Feeding Tube 10f 60cm Implanted:Qty: 1 on 08/17/2018 [facility]: NoseCORPAK [id number] / / [id number] Ponsky 20fr Silicone Peg Pull Deluxe Kit Non Safety Sterile - [id number] Implanted:01/31/2019 at [facility] (Quantity not on file)TubeLeft: AbdomenBARD PERIPHERAL [id number]/28/[id number] / / [id number] Claudio Secur-Migue 20fr Standard J Silicone Jejunostomy Trimmable Distal - [id number] Implanted:04/20/2019 at [facility] (Quantity not on file)TubeLeft: AbdomenHALYARD QFQGQZ07-20 / / [id number] Claudio Secur-Migue 18fr Standard Silicone Natural Rubber Jejunostomy - [id number] Implanted:07/11/2019 at [facility] (Quantity not on file)TubeLeft: AbdomenHALYARD [id number] / / [id number] Endovive 20fr Xylocaine Silicone Peg Pull Method Ampule Trocar Cannula - [id number] Implanted:10/25/2019 at [facility] (Quantity not on file)TubeN/A: AbdomenBOSTON SCIENTIFIC [id number]/30/[id number] / / [id number] Insurance * Guarantor: Maricarmen Tran TypeRelation to PatientDate of BirthPhone Billing AddressSelf IsiPbwd07 1980 [address] [facility] [address] [place] [address] Advance Directives * Full Code (Latest Code [...] Team MemberRelationshipSpecialtyStart DateEnd Date Sharyn Bradford MD [address] [place] [phone] [facility] - General10/18/13
--- OUTSIDE RECORDS SUMMARY | 2025-05-24 09:46 | XMS_ITS | Clinical Summary ---
Author Organization [facility] Address [address] [place] [address] Care Team Providers Care Digital Solutions Architect Name Role Phone Unavailable Primary Care Provider Unavailabl e Social History Tobacco UseTypesPacks/DayYears UsedDateSmoking Tobacco: Never Assessed CommentsUnknownSex and Gender InformationValueDate RecordedSex Assigned at Not on fileLegal ZngOgcvwc81/15/2023 7:23 PM EDTGender IdentityNot on fileSexual OrientationNot on file Last Filed Vital Signs Vital SignReadingTime TakenCommentsBlood Tjveznut215/8404 12:00 PM EDT Pulse--Temperature--Respiratory Rate--Oxygen Saturation--Inhaled Oxygen Concentration--Cvmgyu024 kg (257 lb)09/22/2022 12:00 PM NKVXkhuyv503.4 cm (5' 5.5 )09/22/2022 12:00 PM EDTBody Mass Index42.1204 12:00 PM EDT Plan of Treatment Not on file Insurance
--- OUTSIDE RECORDS SUMMARY | 2025-05-24 09:46 | XMS_ITS | Clinical Summary ---
Author Organization [facility] Address [address] [facility] [address], [address] [place] [address] Care Team Providers Care Motorsports Technician Name Role Phone Sharyn Bradford MD Primary Care Provider [phone] Allergies Active AllergyReactionsCriticalityNoted DateCommentsHydromorphone HclItching 10/29/2023 Medications [...] tablet 10/31/2023ctive Active Problems ProblemNoted DateDiagnosed DatePulmonary jbouurvm54/11/2024cute pulmonary angawwjm98/09/2024Sick sinus /09/2024History of Chiari malformation 10/29/2023Essential dxomvffuziuv41/09/2024ardiac yxcscnqme14/09/2024sychiatric sxgbnanz86/09/2024 Family History Medical HistoryRelationNameCommentsAmyotrophic lateral sclerosisFatherBipolar DisorderFatherHeart AttackFatherEsophageal CancerMaternal GrandfatherDiabetes Maternal GrandmotherHeart FailureMaternal GrandmotherDiabetesMotherGlaucoma Paternal GrandmotherRelationNameStatusCommentsFatherMaternal GrandfatherMaternal GrandmotherMotherPaternal Grandmother Social History Tobacco UseTypesPacks/DayYears UsedDateSmoking Tobacco: NeverSmokeless Tobacco: Never Tobacco Cessation:Counseling Given: No Alcohol UseStandard Drinks/WeekCommentsNever0 (1 standard drink = 0.6 oz pure alcohol)[facility] UtilitiesAnswerDate RecordedIn the past 12 months has the [employer], gas, oil, or water [employer] threatened to shut off services in your [...] times a week10/29/2023How often do you attend yarsani or judaism services?More than 4 times per year10/29/2023o you belong to any clubs or organizations such as yarsani groups, unions, fraternal or athletic maurizio ups, or school groups?Yes10/29/2023How often do you attend meetings of the clubs or organizations you belong to?More than 4 times per year10/29/2023re you , , , , never , or living with a partner? Dwczaoye76/09/2024UDIT-CAnswerDate RecordedFrequency of Alcohol ConsumptionNot on file10/29/2023Q2: How [...] at all 10/29/2023HQ-2AnswerDate RecordedPatient Health Questionnaire-2 Score0 10/29/2023[facility] [place] [facility] Occup[facility] - Occupational Stress QuestionnaireAnswerDate [...] Source: IP Abuse ScreeningAnswerDate RecordedRead-Only, Retired: Physical QgjzuQlpkvs41/09/2024ead-Only, Retired: Verbal DzjagRtfktg27/09/2024ead-Only, Retired: Emotional vmfdnEzmrbn00/09/2024 Read-Only, Retired: Financial RyzepBvxclf76/09/2024ead-Only, Retired: Sexual pzsspPzgfli96/09/2024EducationAnswerDate RecordedWhat is the highest level of school you have completed or the highest degree you have received?Some college, no rlbduw2710/29/2023CommentsNoSex and Gender InformationValueDate RecordedSex Assigned at BirthNot on fileLegal UzcHyyhel24/10/2013 3:23 PM EST Gender IdentityNot on fileSexual OrientationNot on file Last Filed Vital Signs Vital SignReadingTime TakenCommentsBlood Agzlqigp667/8810/31/2023 12:13 PM EDT Futnl67281/11/2024 12:13 PM XSOJkxkabdbgkd66.4 ??C (97.5 ??F)10/31/2023 12:13 PM EDTRespiratory Jjgq395010/31/2023 12:13 PM EDTOxygen Dkdrkmtrjt03%10/31/2023 12:13 PM EDTInhaled Oxygen Concentration--Tcwivb644 kg (255 lb 11.7 oz)2023 6:00 AM YWZKalpdk231.6 cm (5' 6 )10/29/2023 10:50 AM EDTBody Mass Index41.28 10/29/2023 10:50 AM EDT Plan of Treatment Health MaintenanceDue DateLast DoneCommentsDepression Gzfalg4910/30/1994Varicella vaccine (1 of 2 - 13+ 2-dose series)10/31/1995HIV xvmakn5210/30/1997Hepatitis C ageifj2110/30/2000DTaP/Tdap/Td vaccine (1 - Tdap)2001Hepatitis B vaccine (1 of 3 - 19+ 3-dose series)2001Pap smear10/31/2003Cervical cancer screen 2012HPV (without or with Pap)2012reast cancer qlaqwp0810/30/2022 Nhfnrs0910/30/2022nnual Wellness Visit (Medicare Advantage)06/22/2024Flu vaccine (#1)/11/2019, 04/10/2019COVID-19 [...] age to complete this topic Insurance [address] [place] [address] Advance Directives * Full Code (Latest Code Status on File) Date ActivatedDate InactivatedComments10/29/2023 10:29 AM10/31/2023 5:25 PM Care Teams Team MemberRelationshipSpecialtyStart DateEnd Date Bradford, Sharyn, MD [address] [place] [phone] PCP - GeneralFamily Medicine10/30/23
--- OUTSIDE RECORDS SUMMARY | 2025-05-24 09:46 | XMS_ITS | Clinical Summary ---
Author Organization [facility] Address [address] [place] [address] Phone Care Team Providers Care Wellhead Pumper Name Role Phone Sharyn Bradford MD Primary Care Provider [phone] Allergies Active AllergyReactionsCriticalityNoted DateCommentsHydromorphoneItching,Unknown 03/27/2019 Medications MedicationSigDispense [...] mouth once daily.Active Active Problems ProblemNoted DateDiagnosed FwljPpomiyy12/18/2023ardiac yqhiwxjwr68/18/2023 Complete heart block06/08/2023IIH (idiopathic intracranial hypertension) 06/08/2023Renal mass06/08/2023trial gbzjiyjdwyk70/18/2023Sinus node dysfunction 06/08/2023Sinus vawximytran39/18/1354Sfxcntlq23/18/5924Gxkktfd16/18/2023hiari I iehwjsscdber99/07/2019Mild protein-calorie whilcfwglewo39/27/2019Obesity, Class III, BMI 40-49.9 (morbid obesity)07/22/2018Eosinophilic igjfyiesriz82/22/2014 Overview (06/08/2023): -Recent diagnosis. -Biopsy proven perpatient. -Was on Flovent then a five day course of prednisone was given (completed) Plan: Continue Flovent. Ldjwrs8610/24/2013 Overview (06/08/2023): Acute, likely 2/2 vaginal bleed, planfor IUD as out-pt. Hgb stable Acute thrombosis of left axillary vein10/20/2013 Encounters DateTypeDepartmentCare FkizEhrqugsjjxk10/24/2025 9:35 AM EDT - 03/15/2025 11:59 PM EDTHospital Encounter [address] [phone] Pacemaker; Sick sinus syndrome (Multi) Discharge Disposition: Homefrom Last 3 Months Family History Medical HistoryRelationNameCommentsDiabetesFatherGlaucomaFathercardiac disorder FatherDiabetesMotherRelationNameStatusCommentsFatherMother Social History Tobacco UseTypesPacks/DayYears UsedDateSmoking Tobacco: NeverSmokeless Tobacco: NeverAlcohol UseStandard Drinks/WeekCommentsNot Currently0 (1 standard drink = 0.6 oz pure alcohol)CommentsUnknownSex and Gender InformationValueDate RecordedSex Assigned at BirthNot on fileLegal HciXdilhh90/25/2022 1:37 PM EST Gender IdentityNot on fileSexual OrientationNot on file Last Filed Vital Signs Vital SignReadingTime TakenCommentsBlood Yqzkhisg450/72007/22/2022 10:12 AM EST Arsgb5062 10:12 AM ESTTemperature--Respiratory Yeaj2245 1:15 PM ESTOxygen Gedfggqupt363%06/20/2020 6:50 AM ESTInhaled Oxygen Concentration-- Zdhawx509 kg (259 lb)07/22/2022 10:12 AM ONABhdcuj817.6 cm (5' 6 )07/22/2022 10:12 AM ESTBody Mass Index41. 10:12 AM EST Plan of Treatment Health MaintenanceDue DateLast DoneCommentsHIV Iclxrqsjm12/11/1983Lipid Panel 1982Medicare Annual Wellness Visit (AWV)1982MMR Vaccines (1 of 1 - Standard series)10/31/1983Hepatitis C Rlxpftsru37/11/2001Hepatitis A Vaccines (1 of 2 - Risk 2-dose series)2001Hepatitis B Vaccines (1 of 3 - 19+ 3-dose series)2001Cervical Cancer Zylxkmupd92/11/2004HPV/Edzqbz1110/31/2003Pap Smear10/31/2003DTaP/Tdap/Td Vaccines (1 - Tdap)2004HPV Vaccines (1 - 3- dose standard series)2009Diabetes Owajadnlf47, 05/26/2020, 04/09/2020, Additional history oqukcgScvzpkjoe83/11/2023Influenza Vaccine (#1)512/11/2019, 08/29/2019, 04/10/2019, Additional history existsCOVID-19 [...] NamePriorityDate/TimeAssociated DiagnosisCommentsCARDIAC DEVICE CHECK - REMOTE - GOOBMANNEQxedrlc47/24/2025 9:41 AM EDT Pacemaker Sick sinus syndrome (Multi) COMPREHENSIVE METABOLIC UEJSZRwdqtfp94/30/2020 7:23 AM EST from Last 3 Months or Most Recently Relevant to Health Maintenance Results * CARDIAC DEVICE CHECK - REMOTE - PACEMAKER (03/15/2025 9:41 AM EDT)Anatomical RegionLateralityModalityMonitor/DeviceSpecimen (Source)Anatomical Location / LateralityCollection Method / VolumeCollection TimeReceived Time03/15/2025 2:00 AM EDT Narrative Authorizing ProviderResult TypeResult StatusRita Still [facility] IMPLANTABLE CARDIAC DEVICE PROCEDURESFinal Result * (ABNORMAL) Comprehensive Metabolic Panel (06/20/2020 7:23 AM EST)Component ValueRef RangeTest MethodAnalysis TimePerformed AtPathologist SignatureGlucose 8774 - 99 mg/dLAD[facility]HEALTH [facility] LPGGnklks583721 - 145 mmol/[facility] LABPotassium3.73.5 - 5.3 mmol/[facility] Nxudrgxa146(H)98 - 107 mmol/[facility] HLXNrybzemgjmv5322 - 32 mmol/[facility] LABAnion Ibv1267 - 20 mmol/[facility] LABUrea Takmbaar257 - 23 mg/dLADVENTHEALTH [facility] LABCreatinine0.790.50 - 1.05 mg/dLADVENTHEALTH [facility] LABGLOMERULAR FILTRATION RATE-NON >60>60 mL/min/1.65b5UFXAPUADVENTHEALTH WESLEY CHAPEL LABGLOMERULAR FILTRATION RATE->60>60 mL/min/1.09i3XAKBYTADVENTHEALTH WESLEY CHAPEL LABComment: CALCULATIONS OF ESTIMATED GFR ARE PERFORMED USING THE MDRD STUDY EQUATION FOR THE IDMS-TRACEABLE CREATININE METHODS. CLIN CHEM 2007;53:766-72 Calcium9.28.6 - 10.3 mg/dLADVENTHEALTH W[facility] LABAlbumin4.03.4 - 5.0 g/dL [facility] LABAlkaline Soitqijfgns6352 - 110 U/[facility] LABTotal Protein7.16.4 - 8.2 g/dLADVENTHEALTH [facility] AEPPIX434 - 39 U/[facility] LABTotal Bilirubin0.30.0 - 1.2 mg/dLADVENTHEALTH W[facility]LEY [facility] LABALT (SGPT)107 - 45 U/[facility] LABComment: Patients treated with Sulfasalazine may generate falsely decreased results for ALT. Specimen (Source)Anatomical Location / LateralityCollection Method / Volume Collection TimeReceived Time06/20/2020 7:23 AM EST06/20/2020 7:27 AM EST Narrative Authorizing ProviderResult TypeResult StatusEliignacia VILLAVICENCIO BLOOD ORDERABLESFinal ResultPerforming OrganizationAddressCity/State/ZIP CodePhone Number [facility] from Last 3 Months or Most Recently Relevant to Health Maintenance Insurance Care Teams Team MemberRelationshipSpecialtyStart DateEnd Date Sharyn Bradford MD [facility] [place] [address] [facility]03/02/20
--- OUTSIDE RECORDS SUMMARY | 2025-05-24 10:05 | XMS_ITS | CCD ---
Author Organization [facility] Team Providers Care Multimedia Engineer Name Role Phone Unavailable Primary Care Provider UnavailROSELINE Johnson Referring Unavailable Viktor Bradford Unavailable Viktor Bradford MD Primary Care Provider MD Viktor Bradford Primary Care Provider MD Cornell Mcnair Emergency Provider [phone] MD Eduardo Swain Admit Provider MD Eduardo Swain Attending Provider DO Urbano Palma Other Provider OSVALDO Oconnor Emergency Provider MD Viktor Bradford Primary Care Provider DO Urbano Palma Attending Provider DO Michael Cerda Emergency Provider DO Delaney Vargas Attending Provider MD Viktor Bradford Primary Care Provider DO Urbano Palma Attending Provider MD Eduardo Swain Admit Provider MD Eduardo Swain Attending Provider Unavailable Unavailable MD Dustin Cody Admit Provider [phone] MD Dustin Cody Attending Provider [phone] VIKTOR BRADFORD Primary Care Physician MD Viktor Bradford Primary Care Provider DO Urbano Palma Attending Provider Parminderlorene DO Michael Murrieta Emergency Provider MD Eduardo Swain Admit Provider MD Eduardo Swain Attending Provider [phone] MD Dustin Cody Admit Provider MD Dustin Cody Attending Provider ViscDO Urbano lazar Admit Provider DO Raffaele Ellsworth Emergency Provider MD Toribio Cerda Admit Provider MD Toribio Cerda Attending Provider [phone] MD Viktor Bradford Primary Care Provider [phone] Louie, DO Clement Attending Provider Parminderlorene DO [...] Other Provider DO Mahad Mandel Other Provider [phone] MD Luciano Pedro Other Provider DO [...] Provider MD Yossi Peterson Other Provider Glynn, PULP MAKER-C Gretta Helms Other Provider [phone] MD Yonny Bazan Other Provider MD Trace Morataya Other Provider MD Dimitris Joe Other Provider DO Verona Waterman Other Provider DO All Bloom Other Provider [phone] DO Joe Holland Other Provider DUANE Roman Other Provider DO Rosendo Holland Other Provider MD Harriet Andrade Other Provider DUANE Mcnair Other Provider [phone] DUANE Montana Other Provider [phone] Shahida, LAURYN Hurtado Other Provider Unavailable MD Viktor Bradford Primary Care Provider MD Toribio Cerda Admit Provider [phone] MD Toribio Cerda Attending Provider Niles Ke Emergency Provider [phone] MD Eduardo Swain Admit Provider [phone] MD Eduardo Swain Attending Provider [phone] MD Michael Han Attending Provider [phone] Sanchez, Dr. Viktor Pack Primary Care Unav ailable Ne, Dr. Rita Bond Attending Unavailab le Sanchez, Dr. Viktor Pack Primary Care Unav ailable Ne, Dr. Rita Bond Attending Unavailab le Sanchez, Dr. Viktor Pack Primary Care Unav ailable Ne, Dr. Rita Bond Attending Unavailab le Ne, Dr. Rita Bond Referring Unavailab le Ne, Dr. Rita Bond Attending Unavailab le Bradford, Dr. Viktor Pack Primary Care Unav asher Bradford, Dr. Viktor Pack Primary Care Unav ailable Ne, Dr. Rita Bond Attending Unavailab huma Bradford, MD Viktor Leone Primary Care Provider MD [...] Provider Viktor Bradford MD Primary Care Provider [phone] VIKTOR BRADFORD Primary Care Unavailable JESSE SIMS Attending Unavailable LEMUEL RENTERIA Admitting Unavailable MARKER, SUJATA Referring Unavailable TONYA JACOBS Consulting Unavailable GILBERTO LOCKHART Consulting Unavailable RAYMOND ORTIZ Consulting Unavailable MD Viktor Bradford Primary Care Provider MD Nimesh Cerda Attending Provider [phone] Viktor Bradford MD Primary Care Provider [phone] Viktor Bradford MD Primary Care Provider Estela Chung PA-C Attending Provider Zaida PATINO, Nimesh Attending Provider Michael Han MD Attending Provider Viktor Bradford MD Primary Care Provider Michael Han MD Attending Provider [phone] Zaida PATINO, Nimesh Attending Provider Tete Snell MD Attending Provider Viktor Bradford MD Primary Care Provider Zaida PATINO, Nimesh Attending Provider Gaurav Oliver [...] Admitting Unavailable Gaurav Oliver Attending Unavailable Bradford, Viktor E Primary Care Unavailable HanMichael Attending Unavailable [...] of OnsetReaction(s) Facility (20 sources)HYDROmorphone; Translations: [Dilaudid]Drug Vhllcic72-61-1701Lkjohct (finding), Unknown (qualifier value), Itching, UnknownExec[facility] (2 sources)HYDROmorphoneDrug [id number] Clinic (19 sources)HYDROmorphone; Translations: [HYDROmorphone]Drug [id number] [facility] (1 source)HYDROmorphoneDrug AllergyThe [facility] (1 source)Fluarix (PF)Drug allergy (disorder)27-72-8380Lxf [facility] Medications Current Medications MedicationDrug Class(es)DatesSig (Normalized)Sig (Original)ARIPiprazole 30 mg oral tablet (20 sources)Atypical AntipsychoticStart: 50-64-4982xvwx 1 tablet by mouth once dailyARIPiprazole (Abilify) 30 mg tablet Take 1 tablet (30 mg) by mouth once daily. 09/03/2022 ActiveStart: 08-02-2022 End: 09-68-4324Qhxlsgnkddzx (Abilify) 20 mg tablet Discontinued 30 MG PO Daily August 02, 2022 7:37am September 03, 2022 11:31pmStart: 07-17-2022 End: 99-17-8631rjgu 1 tablet by mouth once dailyAripiprazole 20 mg Tablet Discontinued 20 MG PO Daily 30 July 17, 2022 1:00am August 02, 2022 7:37amStart: 12-11-2021 End: 92-39-5906aqoa 1 tablet by mouth once dailyAripiprazole 15 mg Tablet Discontinued 15 MG PO Daily December 11, 2021 12:00am July 17, 2022 1:16pmStart: 11-05-2021 End: 41-65-5117grxm 1 tablet by mouth once dailyAripiprazole 2 mg Tablet Discontinued 2 MG PO Daily November 05, 2021 12:00am December 11, 2021 11:22am Start: 10-13-2021 End: 75-47-2878vfms 1 tablet by mouth once dailyAripiprazole 10 mg Tablet Discontinued 10 MG PO Daily October 13, 2021 12:00am December 11, 2021 11:22amStart: 09-04-2021 End: 85-43-0909gqbk 1 tablet by mouth once dailyAripiprazole 20 mg Tablet Discontinued 20 MG PO Daily September 04, 2021 12:00am October 13, 2021 10:16amStart: 08-31-2021 End: 61-95-1754npvk 3 tablets by mouth once dailyAripiprazole (Abilify) 5 mg tablet Discontinued 15 MG PO Daily August 31, 2021 6:36pm September 04, 2021 1:08pmStart: 07-15-2021 End: 01-60-8241uqjd 1 tablet by mouth once dailyAripiprazole 5 mg Tablet Discontinued 5 MG PO Daily July 15, 2021 1:00am August 31, 2021 6:36pm benztropine mesylate 0.5 mg oral tablet (8 sources)Anticholinergic, AntihistamineStart: 67-91-1921ofyf 1 tablet by mouth twice dailyBenztropine 0.5 mg Tablet Active 0.5 MG PO Twice daily December 15, 2022 12:00amciprofloxacin 500 mg oral tablet (20 sources)Quinolone AntimicrobialStart: 32-13-7516Xgpys 500 mg Tab See Instructions, 1 tab po night prior to cysto. 1 tab po following cysto., # 2 tab (s), Refills(s) 0, Pharmacy: [facility]/pharmacy #[id number], 167, cm, 04/28/23 10:12:00 EST, Height/Length Dosing, 111, kg, 04/28/23 10:12:00 EST, Weight Dosing Start Date: 06/02/24 Status: OrderedStart: 03-03-2019 End: 62-15-6300zhco 0.3122769271101554 mg by mouth every twelve hours Ciprofloxacin Hcl 500 mg tablet Discontinued 500 MG PO Twice daily March 03, 2019 12:00am March 05, 2019 4:30pm 1 Tablet by mouth every 12 hours STOP DATE ml erenumab-aooe 70 mg/ml auto-injector (20 sources)Start: 37-42-8296yqsrdg 1 mL by subcutaneous injection onceerenumab (Aimovig Autoinjector) 70 mg/mL injection Inject 1 mL (70 mg) under the skin every 28 (twenty-eight) days. 12/19/2020 ActiveStart: 12-19-2020 End: 38-86-5397soqajb 70 mg by subcutaneous injection every 30 daysErenumab-Aooe (Aimovig Autoinjector) 70 mg/mL Auto-Injector Discontinued 70 MG SUBCUT Q30D August 31, 2021 1:00am June 25, 2022 10:16pm last taken 10/10/2223 hr metoprolol succinate 25 mg extended release oral tablet (9 sources)beta-Adrenergic BlockerStart: 82-66-6139keyf 1 tablet by mouth once dailymetoprolol succinate XL (Toprol-XL) 25 mg 24 hr tablet Take 1 tablet (25 mg) by mouth once daily. 01/20/2023 Activemirtazapine 15 mg oral tablet (20 sources)Start: 32-37-5620kpww 1 tablet by mouth once daily at bedtime mirtazapine (Remeron) 15 mg tablet Take 1 tablet (15 mg) by mouth once daily at bedtime. 04/14/2023ctiveStart: 12-09-2021 End: 51-75-9131dyzm 1 tablet by mouth at bedtimeMirtazapine (Remeron) 15 mg tablet Discontinued 15 MG PO Bedtime December 09, 2021 12:00am November 9:36pmondansetron 4 mg disintegrating oral tablet (20 sources)Serotonin-3 Receptor AntagonistStart: 64-28-1621jmsa 1 tablet by mouth every eight hoursOndansetron 4 mg tablet,disintegrating Active 4 MG PO Q8H June 10, 2024 1:00amStart: 10-18-2022 End: 78-90-3424rlyl 1 tablet by mouth three times daily as needed for nausea Ondansetron 4 mg tablet,disintegrating Discontinued 4 MG PO Three times daily as needed for Nausea October 28, 2022 8:50pm November 12, 2023 1:30pmStart: 08-25-2019 End: 42-65-0536faqn 1 tablet by mouth every six hours as needed for nausea Ondansetron 4 mg Tablet,Disintegrating Discontinued 4 MG PO Q6H as needed for Nausea August 25, 2019 1:00am February 18, 2020 5:45pmStart: 05-26-2019 End: 64-69-6640uvkp 1 tablet by mouth every four hours as needed for nausea and vomitingOndansetron 4 mg Tablet,Disintegrating Discontinued 4 MG PO Every 4 hours as needed for Nausea And Vomiting December 11, 2021 12:00am August 12, 2022 1:21pmStart: 10-35-9555Tlkblp Oral, See Instructions, Refills(s) 0, Nausea/Vomiting Start Date: 11/15/13 Status: Ordered Repeat number: 1Start: 69-28-0931Wbdhul Oral, See Instructions, Refills(s) 0, Nausea/Vomiting Start Date: 11/15/13 Status: OrderedComment on above:Take 1 tablet by mouth every 4 hours as needed for Nausea/Vomiting.1.5 ml paliperidone palmitate 156 mg/ml prefilled syringe (20 sources)Atypical AntipsychoticStart: 78-28-2865Ydxydd Sustenna 234 mg/1.5 mL syringe Inject 1.5 mL (234 mg) into the muscle. 04/06/2023 ActiveStart: 12-95-3920Udztltljqcpw Palmitate (Invega Sustenna) 234 mg/1.5 mL syringe Active 234 MG IM Q28D December 11, 2022 12:00amStart: 09-07-2022 End: 70-29-6344uvsw 1 tablet by mouth twice dailyPaliperidone 3 mg Tablet Extended Release 24 Hr Discontinued 3 MG PO Twice daily September 07, 2022 12:00am December 15, 2022 11:02amStart: 09-07-2022 End: 70-73-3448Czeoaxqklgrj Palmitate (Invega Sustenna) 156 mg/mL Syringe Discontinued 156 MG IM Q28D 07 21September 07, 2022 12:00am December 11, 2022 9:27pm Start: 09-03-2022 End: 84-62-7999gywv 1 tablet by mouth once daily in the morningPaliperidone (Invega) 3 mg Tablet Extended Release 24 Hr Discontinued 3 MG PO Every morning September 03, 2022 12:00am September 07, 2022 12:05pmStart: 10-13-2021 End: 29-67-3499ozgv 1 tablet by mouth once daily at bedtimePaliperidone 6 mg Tablet Extended Release 24 Hr Discontinued 6 MG PO Daily at bedtime 14 October 13, 2021 12:00am November 01, 2021 10:23amStart: 10-13-2021 End: 63-93-6946uayuzu 156 mg by intramuscular injection oncePaliperidone Palmitate (Invega Sustenna) 156 mg/mL Syringe Discontinued 156 MG IM Once 1 October 13, 2021 12:00am January 20, 2022 3:48pmtraZODone hydrochloride 50 mg oral tablet (20 sources)Serotonin Reuptake InhibitorStart: 68-40-2335pkyr 1 tablet by mouth once daily at bedtimetraZODone (Desyrel) 50 mg tablet Take 1 tablet (50 mg) by mouth once daily at bedtime. 09/03/2022 ActiveStart: 79-26-6344Xhbrzxwgl 50 mg tablet Active 75 MG PO Daily at bedtime as needed for Insomnia July 02, 2022 10:24amStart: 34-04-6215wdeh 75 mg by mouth once daily at bedtimeTrazodone Active 75 MG PO Daily at bedtime July 02, 2022 10:24amStart: 07-15-2021 End: 80-68-1875hnsp 1 tablet by mouth once daily at bedtime as neededTrazodone 50 mg Tablet Discontinued 50 MG PO Daily at bedtime as needed for Insomnia October 13, 2021 12:00am July 02, 2022 10:24amwarfarin sodium 5 mg oral tablet (4 sources)Vitamin K AntagonistStart: 26-04-4364xegc 1 tablet by mouth once dailyWarfarin 5 mg tablet Active 5 MG PO Daily June 10, 2024 1:00am Completed/Discontinued Medications MedicationDrug Class(es)DatesSig (Normalized)Sig (Original)acetaminophen 500 mg oral tablet (14 sources)Start: 08-13-2022 End: 55-62-6801ydvl 2 tablets by mouth every six hoursAcetaminophen 500 mg Tablet Discontinued 1000 MG PO Q6H August 13, 2022 1:00am September 03, 2022 7:38pmStart: 08-13-2022 End: 50-70-5911cwql 1000 mg by mouth every six hoursAcetaminophen [...] oral tablet (20 sources)Opioid AgonistStart: 12-13-2020 End: 43-27-4432meay 1 tablet by mouth every six hours as needed for pain Hydrocodone-Acetaminophen 5-325 mg tablet Discontinued 1 TAB PO Q6H as needed for pain 8 2 December 13, 2020 June 14, 2021 11:35amStart: 02-18-2020 End: 09-52-3242ikfb 1 tablet by mouth twice daily as needed for painHydrocodone- Acetaminophen 5-325 mg Tablet Discontinued 1 TAB PO Twice daily as needed for Pain February 18, 2020 12:00am June 14, 2021 11:35amacetaZOLAMIDE 250 mg oral tablet (20 sources)Carbonic Anhydrase InhibitorStart: 08-21-2020 End: 41-07-3656zdjo 1 tablet by mouth twice dailyAcetazolamide 250 mg Tablet Discontinued 250 MG PO Twice daily July 09, 2021 1:00am November 12:58amStart: 02-21-2020 End: 63-07-2368oxvr 1 tablet by mouth twice dailyAcetazolamide 250 mg Tablet Discontinued 250 MG PO Twice daily 60 30 February 21, 2020 12:00am March 30, 2020 10:34pmComment on above:Take 250 mg by mouth twice daily.apixaban 5 mg oral tablet (9 sources)Factor Xa InhibitorStart: 11-12-2023 End: 97-17-8135fcrc 1 tablet by mouth twice dailyApixaban (Eliquis) 5 mg tablet Discontinued 5 MG PO Twice daily 60 November 12, 2023 1:50pm June 10, 2024 10:39ambenzocaine 200 mg/ml / menthol 5 mg/ml topical spray (12 sources)Standardized Chemical AllergenStart: 08-13-2022 End: 33-86-1239Tkmjpvehko-Menthol (Dermoplast (With Menthol)) 20-0.5 % Aerosol Discontinued 1 SPRAY TOPICAL PRN asneeded for Discomfort August 13, 2022 1:00am September 03, 2022 7:38pmBlood Pressure Kit Med And Lrg (10 sources)Start: 08-02-2022 End: 18-05-0059Obbpo Pressure Kit Med And Lrg Discontinued 0 .Route 1 August 02, 2022 1:00am August 13, 2022 1:07pm As directedStart: 20-41-1795Uodfh Pressure Kit Med And Lrg Active 0 .Route 1 August 02, 2022 12:00am As directedBlood Pressure Kit Med And Lrg kit (4 sources)Start: 08-02-2022 End: 27-63-0832Nhpbo Pressure Kit Med And Lrg kit Discontinued 0 .Route 1 August 02, 2022 1:00am August 13, 2022 1:07pm As directedStart: 08-02-2022 End: 93-06-5088Jridc Pressure Kit Med And Lrg kit Discontinued 0 .Route 1 August 02, 2022 12:00am August 13, 2022 12:07pm As directedbusPIRone hydrochloride 5 mg oral tablet (20 sources)Start: 02-21-2020 End: 28-14-8897oyul 1 tablet by mouth three times dailyBuspirone 5 mg Tablet Discontinued 5 MG PO Three times daily 270 90 February 21, 2020 12:00am Octo pavel 2019 10:31pmcephalexin 500 mg oral capsule (20 sources)Cephalosporin AntibacterialStart: 38-05-4736kipk 1 capsule by mouth once dailyKeflex 500 mg Cap 500 mg = 1 cap(s), Oral, Daily, Take 1 capsule the day before the procedure and 1capsule after the procedure, # 2 cap(s), Refills(s) 0, Pharmacy: [facility]/pharmacy #[id number], 167, cm, 09/03/22 13:32:00 EDT, Height/Length Dosing, 111, kg, 09/03/22 13:32:00 EDT... Start Date: 12/02/22 Status: OrderedStart: 10-18-2022 End: 46-02-9670yque 1 capsule by mouth every six hoursCephalexin 500 mg capsule Discontinued 500 MG PO Q6H 40 October 18, 2022 12:00am October 28, 2022 8:35pm Start: 08-02-2022 End: 47-05-4930ahom 1 capsule by mouth every six hoursCephalexin 500 mg capsule Discontinued 500 MG PO Q6H 28 August 02, 2022 1:00am July 1:07pmStart: 08-01-2019 End: 11-27-3330bxvf 1 capsule by mouth three times dailyCephalexin (Keflex) 500 mg Capsule Discontinued 500 MG PO Three times daily August 01, 2019 1 :00am August 25, 2019 10:16amcholecalciferol 0.025 mg oral tablet (20 sources)Vitamin DStart: 11-01-2022 End: 06-11-4575agbw 1 tablet by mouth once dailyCholecalciferol (Vitamin D3) 25 mcg (1,000 unit) Tablet Discontinued 50 MCG PO Daily 60 30 November 01, 2022 12:00am November 12, 2023 1:29pmStart: 09-04-2021 End: 54-38-2213nfsm 1 tablet by mouth once dailyCholecalciferol (Vitamin D3) 25 mcg (1,000 unit) Tablet Discontinued 50 MCG PO Daily 60 August 12:00am October 06, 2021 2:18pmStart: 02-18-2020 End: 95-01-4020ypmf 1 capsule by mouth once dailyCholecalciferol (Vitamin D3) 1,000 unit capsule Discontinued 1000 UNIT PO Daily February 18, 2020 5:45pm June 14, 2021 11:35am take with some food, or when tube feeding is running.Start: 03-05-2019 End: 77-76-2596icds 1 capsule by mouth twice dailyCholecalciferol (Vitamin [...] oral tablet (12 sources)Muscle RelaxantStart: 08-12-2022 End: 77-67-4487bwbc 1 mg by mouth at bedtime as needed for muscle spasms Cyclobenzaprine 10 mg Tablet Discontinued MG PO Bedtime as needed for Muscle Spasm August 12, 2022 1:00am September 03, 2022 7:38pmStart: 08-12-2022 End: 10-50-0002qmyr 1 mg by mouth at bedtimeCyclobenzaprine Discontinued MG PO Bedtime August 12, 2022 1:00am September 03, 2022 7:38pmDexlansoprazole (Dexilant) 60 mg capsule,biphase delayed releas (5 sources)Start: 11-11-2023 End: 43-19-5373lfkv 1 capsule by mouth once dailyDexlansoprazole (Dexilant) 60 mg capsule,biphase delayed releas Discontinued 60 MG PO Daily November 10, 2023 11:00pm November 12, 2023 12:29pmStart: 11-11-2023 End: 67-52-3817bmnz 1 capsule by mouth once dailyDexlansoprazole (Dexilant) 60 mg capsule,biphase delayed releas Discontinued 60 MG PO Daily November 11, 2023 12:00am November 12, 2023 1:29pmdocusate sodium 100 mg oral capsule (12 sources)Start: 08-13-2022 End: 69-68-7442ggrv 1 capsule by mouth at bedtimeDocusate Sodium 100 mg Capsule Discontinued 100 MG PO Bedtime August 13, 2022 1:00am September 03, 2022 7:38pmdoxepin hydrochloride 10 mg oral capsule (20 sources)Tricyclic AntidepressantStart: 08-31-2021 End: 73-88-7254zdcr 1 capsule by mouth once dailyDoxepin 10 mg Capsule Discontinued 10 MG PO Daily August 31, 2021 1:00am October 06, 2021 2:23pm Start: 09-10-2020 End: 53-32-5272egpx 1 capsule by mouth once daily at bedtimeDoxepin 10 mg capsule Discontinued 10 MG PO Daily at bedtime June 14, 2021 1:00am July 09, 2021 6:36pmferrous sulfate 325 mg oral tablet (20 sources)Start: 06-25-2022 End: 55-69-9575szzn 1 tablet by mouth once dailyFerrous Sulfate [...] 50 mg/ml oral solution (1 source)Anti-epileptic AgentStart: 61-44-6527zkcf 6 mL by mouth every eight hoursgabapentin (NEURONTIN) 250 mg/5 mL (5 mL) oral solution Take 6 mL by mouth every 8 hours for 90 days. 540 mL 2 11/12/2020 ActiveComment on above:Take 6 mL by mouth every 8 hours for 90 days.1 ml galcanezumab-gnlm 120 mg/ml auto-injector (20 sources)Start: 08-25-2019 End: 56-50-8891xciqly 120 mg by subcutaneous injection every 30 days Galcanezumab-Gnlm (Emgality Pen) 120 mg/mL Pen Injector Discontinued 120 MG SUBCUT Q30D August 25, 2019 1:00am June 14, 2021 3:53pmhydrOXYzine pamoate 50 mg oral capsule (20 sources)AntihistamineStart: 09-04-2021 End: 64-95-2771xhpn 1 capsule by mouth at bedtime as needed for anxiety Hydroxyzine Pamoate 50 mg capsule Discontinued 50 MG PO Bedtime as needed for Anxiety October 06, 2021 2:23pm December 11, 2021 11:22amlamoTRIgine 25 mg oral tablet (20 sources)Mood Stabilizer, Anti-epileptic AgentStart: 02-21-2020 End: 80-37-6327yeoc 1 tablet by mouth twice dailyLamotrigine 25 mg Tablet Discontinued 25 MG PO Twice daily 60 30 February 21, 2020 12:00am June 14, 2021 11:36amlinaclotide 0.072 mg oral capsule (20 sources)Guanylate Cyclase-C AgonistStart: 11-11-2023 End: 60-31-1369byem 1 capsule by mouth once dailyLinaclotide 72 mcg capsule Discontinued MCG PO November 11, 2023 12:00am November 12, 2023 1:30pm FreeTextSi capsule po one time daily; Note: Source Status: Refill; Refills: 3; Provider: Courtney Encarnaciontart: 10-19-2020 End: 06-47-3716kgpg 1 capsule by mouth once dailylinaCLOtide (Linzess) 145 mcg capsule Take 1 capsule (145 mcg) by mouth once daily. 12/13/2020 ActiveStart: 03-03-2019 End: 99-10-7701ikym 1 capsule by mouth once daily in the morningLinaclotide (Linzess) 145 mcg capsule Discontinued 145 MCG PO Daily March 03, 2019 12:00am February 18, 2020 5:44pm Takes in morning.Comment on above:Take 1 capsule by mouth once daily.LORazepam 1 mg oral tablet (20 sources)BenzodiazepineStart: 06-14-2021 End: 67-80-0820fspu 1 tablet by mouth twice daily as needed for anxietyLorazepam (Ativan) 1 mg tablet Discontinued 1 MG PO Twice daily as needed for Anxiety June 14, 2021 1:00am August 31, 2021 6:34pmStart: 01-37-0398UMDbwcsce 0.5 MG Oral Tablet Quantity: 60 Refills: 0 Ordered: 24-Sep-2020 DO Start : 24-Sep-2020 Activetake 1 mg by mouth once daily at bedtimeLORazepam (ATIVAN) 0.5 mg Take 1 mg by mouth daily at bedtime. 0 ActiveComment on above:Take 1 mg by mouth daily at bedtime.metoclopramide 10 mg oral tablet (10 sources)Dopamine-2 Receptor AntagonistStart: 11-01-2022 End: 80-26-8371uqoq 1 tablet by mouth once before mealtimeMetoclopramide Hcl 10 mg Tablet Discontinued 10 MG PO 3x/Day before meals 45 15 November 01, 2022 12:00am December 11, 2022 9:36pmModified Lanolin (Lanolin (Hpa)) 100 % Cream (12 sources)Start: 08-13-2022 End: 32-61-7089Vrdsymwp Lanolin (Lanolin (Hpa)) 100 % Cream Discontinued 1 APPLIC TOPICAL PRN as needed for Discomfort August 13, 2022 1:00am September 03, 2022 7:39pmStart: 08-13-2022 End: 08-05-2868Muxgbtpd Lanolin (Lanolin (Hpa)) 100 % Cream Discontinued 1 APPLIC TOPICAL PRN as needed for Discomfort August 13, 2022 12:00am September 03, 2022 6:39pmStart: 08-13-2022 End: 20-92-7917Plztnfrr Lanolin (Lanolin (Hpa)) 100 % Cream Discontinued 1 APPLIC TOPICAL PRN August 13, 2022 1:00am September 03, 2022 7:39pmnaproxen 500 mg oral tablet (11 sources)Nonsteroidal Anti-inflammatory DrugStart: 10-18-2022 End: 39-44-0737oitn 1 tablet by mouth twice daily as needed for painNaproxen (Naprosyn) 500 mg tablet Discontinued 500 MG PO Twice daily as needed for pain October 18, 2022 12:00am October 28, 2022 6:00pmnitrofurantoin, macrocrystals 25 mg / nitrofurantoin, monohydrate 75 mg oral capsule (20 sources)Nitrofuran AntibacterialStart: 09-28-2022 End: 21-23-9028geln 1 capsule by mouth every twelve hours at mealtime Nitrofurantoin Monohyd/M-Cryst (Macrobid) 100 mg capsule Discontinued 100 MG PO Q12H September 28, 2022 12:00am October 28, 2022 8:00pm Administer with a meal/food: swallow whole; do not open, crush, dissolve, or chewStart: 12-11-2021 End: 92-38-6146rbhb 1 capsule by mouth twice dailyNitrofurantoin Monohyd/M-Cryst 100 mg Capsule Discontinued 100 MG PO Twice daily 8 4 December 11, 2021 12:00am January 20, 2022 3:48pmpantoprazole 40 mg delayed release oral tablet (20 sources)Proton Pump InhibitorStart: 12-17-2020 End: 07-79-3394wxeu 1 tablet by mouth once dailyPantoprazole (Protonix) 40 mg tablet,delayed release (DR/EC) Discontinued 40 MG PO Daily June 14, 2021 1:00am December 11, 2021 11:22amStart: 08-01-2019 End: 42-60-7028ciym 1 tablet by mouth twice dailyPantoprazole (Protonix) 40 mg Tablet,Delayed Release (Dr/Ec) Discontinued 40 MG PO Twice daily August 01, 2019 1:00am February 18, 2020 5:44pmPrenatal Vit No.379-Orom-Mlvhv ( Vitamin) 27 mg iron- 800 mcg Tablet (20 sources)Start: 12-11-2021 End: 94-81-1145jxyn 1 tablet by mouth once dailyPrenatal Vit No.124-Qtaq-Atbdp ( Vitamin) 27 mg iron- 800 mcg Tablet Discontinued 1 TAB PO Daily December 10, 2021 11:00pm September 03, 2022 6:39pmStart: 12-11-2021 End: 96-55-6411oeic 1 tablet by mouth once dailyPrenatal Vit No.046-Quwh-Lkqza ( Vitamin) 27 mg iron- 800 mcg Tablet Discontinued 1 TAB PO Daily December 11, 2021 12:00am September 03, 2022 7:39pmStart: 51-00-4109dnnr 1 tablet by mouth once dailyPrenatal Vit No.446-Hstk-Hnhuc ( Vitamin) 27 mg iron- 800 mcg Tablet Active 1 TAB PO Daily December 10, 2021 11:00pmStart: 12-11-2021 take 1 tablet by mouth once dailyPrenatal Vit No.674-Szhb-Xnicg ( Vitamin) 27 mg iron- 800 mcg Tablet Active 1 TAB PO Daily December 11, 2021 12:00amPrenatal Vitamin TABS (8 sources) Vitamin TABS TAKE 1 TABLET DAILY DIRECTED. Quantity: 0 Refills: 0 Ordered: 14-Jan-2022 DO Activepromethazine hydrochloride 25 mg oral tablet (20 sources)PhenothiazineStart: 11-11-2023 End: 87-02-4846Ondepczigyoz 25 mg tablet Discontinued 25 MG PO November 11, 2023 12:00am November 12, 2023 1:31pm FreeTextSig: Oral; Note: Source Status: Not- TakingundefinedPRN; Qty: 60 Unspecified; Provider: Courtney Tabor ( )Start: 11-01-2022 End: 88-40-5554Fjtpzvztrmuc 12.5 mg suppository Discontinued 12.5 MG NV Q6H as needed for Nausea And Vomiting 2022 12:00am November 12, 2023 1:31pm Start: 01-20-2022 End: 52-01-8058ukxw 1 tablet by mouth four times daily as needed for nausea and vomitingPromethazine 25 mg tablet Discontinued 25 MG PO Four times daily as needed for nausea and vomiting January 20, 2022 12:00am August 12, 2022 1:21pmStart: 03-03-2019 End: 60-12-4939dayq 1 tablet by mouth every eight hours as needed for nausea Promethazine 25 mg tablet Discontinued 25 MG PO Three times daily as needed for Nausea March 03, 2019 12:00am June 14, 2021 11:36am 1 Tablet by mouth every 8 hours as needed.Start: 07-49-1019vtebbfkbeapc (PHENERGAN) 25 mg suppository Indications: Gastroparesis 1 Suppository by RECTAL routeevery 6 hours as needed. 180 Suppository 6 09/02/2018 ActiveStart: 96-63-4630cfihtl 50 mg by intramuscular injection every six hours as needed for nauseaPhenergan 50 mg/mL injectable solution 50 mg = 1 mL, IntraMuscular, q6hr, PRN for nausea/vomiting, # 10 mL, Refills(s) 0 Start Date: 11/15/13 Status: Ordered Quantity: 10.0 Unit: mL Repeat number: 1Comment on above:1 Suppository by RECTAL route every 6 hours as needed.pyridostigmine bromide 60 mg oral tablet (5 sources)Start: 11-11-2023 End: 93-88-4468lbtr 1 tablet by mouth twice dailyPyridostigmine Golden 60 mg tablet Discontinued 1 TAB PO Twice daily November 11, 2023 12:00am November 12, 2023 1:31pm FreeTextSi tablet Orally bid; Note: Source Status: Taking; Refills: 4; Qty: 180 Tablet; Provider: Courtney Tabor ( )rimegepant 75 mg disintegrating oral tablet (20 sources)Start: 03-30-2020 End: 62-77-0148dqmb 1 tablet by mouth once daily as needed for headache Rimegepant (Nurtec Odt) 75 mg Tablet,Disintegrating Discontinued 75 MG PO Daily as needed for Headache March 30, 2020 12:00am June 14, 2021 11:36am sertraline 100 mg oral tablet (20 sources)Serotonin Reuptake InhibitorStart: 03-03-2019 End: 61-87-3756tdau 2 tablets by mouth at bedtimeSertraline (Zoloft) 100 mg tablet Discontinued 200 MG PO Bedtime March 03, 2019 12:00am June 14, 2021 11:36amSucralfate (1 source)Aluminum ComplexStart: 11-11-2023 End: 09-79-2986mgaq 10 mL by mouth four times dailySucralfate Discontinued PO November 11, 2023 12:00am November 12, 2023 1:31pm FreeTextSi ml Orally qid; Note: Source Status: Taking; Refills: 3; Qty: 1200 ml; Provider: Courtney Tabor LSucralfate 100 mg/mL suspension (4 sources)Start: 11-11-2023 End: 16-47-8680fygd 10 mL by mouth four times dailySucralfate 100 mg/mL suspension Discontinued PO November 11, 2023 12:00am November 12, 2023 1:31pm FreeTex tSi ml Orally qid; Note: Source Status: Taking; Refills: 3; Qty: 1200 ml; Provider: Courtney Tabor LStart: 11-11-2023 End: 61-12-7290pjoa 10 mL by mouth four times dailySucralfate 100 mg/mL suspension Discontinued PO November 10, 2023 11:00pm November 12, 2023 12:31pm FreeTe xtSi ml Orally qid; Note: Source Status: Taking; Refills: 3; Qty: 1200 ml; Provider: Courtney Tabor Lterconazole 80 mg vaginal insert (20 sources)Azole AntifungalStart: 06-26-2022 End: 09-87-2636Teqecbzsxvl 80 mg Suppository Discontinued 1 SUPP VAGINAL Daily at bedtime 7 7 June 26, 2022 1:00am July 15, 2022 12:20pmtiZANidine 4 mg oral tablet (20 sources)Central alpha-2 Adrenergic AgonistStart: 10-28-2022 End: 39-97-5846Vbhddquuhr (Zanaflex) 4 mg Tablet Discontinued 5 MG PO Daily at bedtime October 28, 2022 12:00am December 11, 2022 9:37pm Per Pt. Report she takes 5 mg at HSStart: 95-82-9139woOIPugigr HCl - 4 MG Oral Tablet Quantity: 180 Refills: 0 Ordered: 08-Oct-2020 DO Start : 08-Oct-2020 ActiveStart: 02-18-2020 End: 21-01-3493nnyp 1 tablet by mouth at bedtimeTizanidine (Zanaflex) 4 mg Tablet Discontinued 4 MG PO Bedtime September 03, 2022 12:00am September 28, 2022 7:25pmStart: 08-01-2019 End: 82-42-0881nvon 1 tablet by mouth once daily at [...] mg oral tablet (20 sources)Start: 08-01-2019 End: 60-23-7647mstx 1 tablet by mouth once daily at [...] sources)Serotonin and Norepinephrine Reuptake InhibitorStart: 07-15-2021 End: 89-73-7651mcpm 1 capsule by mouth once daily in the morningVenlafaxine (Effexor Xr) 150 mg capsule,extended release 24hr Discontinued 150 MG PO Every morning August 31, 2021 6:36pm July 02, 2022 10:23amStart: 07-09-2021 End: 65-41-5897ntrw 1 capsule by mouth once daily in the morningVenlafaxine 37.5 mg capsule,extended release 24hr Discontinued 37.5 MG PO Every morning July 09, 2021 1:00am July 15, 2021 10:32amStart: 06-18-2021 End: 47-55-6508dzoc 1 capsule by mouth once daily in the morningVenlafaxine 75 mg capsule,extended release 24hr Discontinued 75 MG PO Every morning July 09, 2021 6:38pm July 15, 2021 10:32amvitamin b12 1 mg oral tablet (20 sources)Vitamin G37Zsktt: 11-01-2022 End: 34-61-8392xfbg 1 tablet by mouth once daily in the morningCyanocobalamin (Vitamin B-12) 1,000 mcg Tablet Discontinued 1000 MCG PO Every morning November 01, 2022 12:00am November 12, 2023 1:29pmStart: 02-21-2020 End: 99-54-3183iuwc 1 tablet by mouth once daily in the morningCyanocobalamin (Vitamin B-12) 1,000 mcg Tablet Discontinued 1000 MCG PO Every morning February 21, 2020 12:00am June 14, 2021 11:35amwitch marv 500 mg/ml medicated pad (12 sources)Start: 08-13-2022 End: 20-52-3110Bkihbqwn-Witch Marv (A.[employer].R. Witch Marv) 12.5-50 % Pads, Medicated Discontinued 1 PAD TOPICAL PRN as needed for Discomfort August 13, 2022 1:00am September 03, 2022 7:39pm Problems Active Problems Problem ClassificationProblemDateDocumented DateEpisodic/ChronicAbdominal pain (20 sources)Abdominal pain; Translations: [Unspecified abdominal pain]Onset: 192848-78-3072BgxdtrxuVzwimziofqofvn/social admission (20 sources)Follow-up status; Translations: [Other specified counseling] 57-47-8739UpbafxyxVxkfczz disorders (20 sources)Mixed anxiety and depressive disorder; Translations: [Other specified anxiety disorders]Onset: 798563-75-6080FxmzkzdFjzxbdn dysrhythmias (20 sources)Sinus node dysfunction; Translations: [Sinoatrial node dysfunction] Onset: 52-82-0110BugefjgFvejihpenqqxs of surgical procedures or medical care (2 sources)Finding of gastrointestinal device; Translations: [Enterostomy malfunction]Onset: 931989-25-6292MegmgftVrdkbmltrr disorders (20 sources)Complete atrioventricular block; Translations: [Atrioventricular block, complete]Onset: 385161-88-7789AcerzjkYkimjaljgr and other anemia (1 source)Anemia, unspecified; Translations: [Anemia, unspecified]12-11-2021 EpisodicDelirium, dementia, and amnestic and other cognitive disorders (20 sources)Delirium; Translations: [Delirium due to known physiological condition]36-74-0637WynvnluEiezqzktjq disorders (20 sources)Eosinophilic esophagitis; Translations: [Eosinophilic esophagitis] Onset: 579406-67-0168TgxcrxmDkkjq and electrolyte disorders (20 sources)Dehydration; Translations: [Dehydration]Onset: EpisodicGenitourinary symptoms and ill-defined conditions (20 sources)Joseph hematuria; Translations: [Nocturia]Onset: EpisodicHeadache; including migraine (20 sources)Headache; Translations: [Headache]Onset: EpisodicImmunizations and screening for infectious disease (20 sources)Exposure to Human immunodeficiency virus; Translations: [Contact with and (suspected) exposure to human immunodeficiency virus [HIV]]07-18-2021 EpisodicMenstrual disorders (2 sources)Menorrhagia; Translations: [Excessive and frequent menstruation with regular cycle]Onset: 95-87-8158KgzansiLugf disorders (20 sources)Major depression with psychotic features; Translations: [Major depressive disorder, single episode,severe with psychotic features]Onset: 021612-43-1208JexmorgTroscj and vomiting (20 sources)Intractable nausea and vomiting; Translations: [Nausea with vomiting, unspecified]Onset: 257768-78-2932GrfzcszhWbgcayv system congenital anomalies (4 sources)Chiari skcaatoyjsjo32-08-8591OezunjeQlbcnsabhaa chest pain (20 sources)Chest pain; Translations: [Chest pain, unspecified]12-13-2020 EpisodicNutritional deficiencies (20 sources)Deficiency of macronutrients; Translations: [Mild protein-calorie malnutrition]Onset: 159416-49-2200UepvveuNcozmimjgim deficiencies (20 sources)Cobalamin deficiency; Translations: [Deficiency of other specified B group vitamins]93-72-6464YbwphcjkIjnuv aftercare (11 sources)Patient encounter status; Translations: [Encounter for therapeutic drug level monitoring]Onset: 57-46-6867IvhuijohJopnt aftercare (1 source)Other prison (current) drug therapy; Translations: [OTH PIPE FITTER APPRENTICE CURRENT DRUG THERAPY]Onset: 24-57-7756JuefoentOzwjr aftercare (1 source)Long-term current use of anticoagulant; Translations: [penitentiary (current) use of anticoagulants]Onset: 02-59-0160BslvjpeeXxtsd circulatory disease (1 source)Device in situ; Translations: [Presence of other vascular implants and grafts]88-23-8009KkycdlaUkvkf circulatory disease (1 source)Presence of other vascular implants and grafts; Translations: [Other postprocedural status]60-11-9207TdacqepMkzav complications of (4 sources)Advanced maternal age -94-0160OagzgyiyQjcrq diseases of bladder and urethra (7 sources)Urethral dwtszukvo91-13-0120UrcmvmeeRrahu diseases of bladder and urethra (3 sources)Male urethral stricture; Translations: [Unspecified urethral stricture, male, unspecified site]Onset: 56-71-1372QylymkxeWoxng diseases of kidney and ureters (20 sources)Renal mass; Translations: [Other specified disorders of kidney and ureter]Onset: 16-32-878360805877-67-9891CofafqfPntvg diseases of kidney and ureters (3 sources)Disorder of kidney and/or ureter; Translations: [Other specified disorders of kidney and ureter]Onset: 61-09-9203PjnrsdwMdmzu diseases of kidney and ureters (1 source)Other specified disorders of kidney and ureter; Translations: [Other specified disorders of kidney and ureter]Onset: 00-37-7943AiupxsnObtmb disorders of stomach and duodenum (20 sources)Gastroparesis syndrome; Translations: [Gastroparesis]Onset: 681494-47-5837LwfyrgbyDyxtqpr on above:s/p gastrectomyOther disorders of stomach and duodenum (9 sources)Gastroparesis; Translations: [Gastroparesis]Onset: 10-20-2022 88-61-1965HuwvhbvoOumkz female genital disorders (2 sources)Vaginal bleeding; Translations: [Abnormal uterine and vaginal bleeding, unspecified]Onset: 161390-19-7000RafticoZwqvj gastrointestinal disorders (4 sources)History of intubation of gastrointestinal tract via jejunostomy 68-56-3682IaooqjtPrmai infections; including parasitic (8 sources)Infection by Omebuxduddk17-29-9518UosqlubvUhjke injuries and conditions due to external causes (8 sources)Injury of fkve44-77-5252VpoagwwtUbgfk lower respiratory disease (9 sources)Dyspnea; Translations: [Shortness of breath]EpisodicOther nervous system disorders (20 sources)Benign intracranial hypertension; Translations: [Benign intracranial hypertension]Onset: 039059-78-5621ZwdezlnPhrcb nervous system disorders (20 sources)Chiari malformation type I; Translations: [Compression of brain] Onset: 039122-47-5559OqbvnulUrcog nervous system disorders (4 sources)Compression of brain; Translations: [Compression of brain]08-02-2022 ChronicOther nervous system disorders (20 sources)Disturbance in speech; Translations: [Other speech disturbances] 66-74-4574KqhrkwggNggnq nutritional; endocrine; and metabolic disorders (13 sources)Body mass index 40+ - severely obese; Translations: [Morbid (severe) obesity due to excess calories]Onset: 293452-41-3911RpotrktWoygm nutritional; endocrine; and metabolic disorders (2 sources)Obese class II; Translations: [Obesity, unspecified]Onset: 04-21-2019 31-77-2346QkhdltnOxkoo nutritional; endocrine; and metabolic disorders (10 sources)Obesity; Translations: [Obesity, unspecified]ChronicOther nutritional; endocrine; and metabolic disorders (20 sources)Body mass index 30+ - obesity; Translations: [Body mass index (BMI) 35.0-35.9, adult]35-81-1772FyjjsshPssko nutritional; endocrine; and metabolic disorders (1 source)Body mass index (BMI) 35.0-35.9, adult; Translations: [Body Mass Index 35.0-35.9, adult]43-47-5797JffvxacWsalu and delivery including normal (20 sources); Translations: [ state, incidental]12-10-2021 EpisodicOvarian cyst (20 sources)Cyst of ovary; Translations: [Unspecified ovarian cyst, unspecified side]20-78-9790BraiopdwAxyksbsth heart disease (5 sources)Other pulmonary embolism without acute cor pulmonale; Translations: [Pulmonary embolism]Onset: 135177-07-6086VxaamemqZbwwhhxo codes; unclassified (20 sources)Altered mental status; Translations: [Altered mental status, unspecified]Onset: 819248-87-1364ThzvtlmgMfnvxiit codes; unclassified (9 sources)Non-smoker; Translations: [Other specified conditions influencing health status]EpisodicResidual codes; unclassified (20 sources)H/O: hypertension; Translations: [Personal history of other complications of , childbirth and the puerperium]87-38-6476Flmmtcwt Residual codes; unclassified (20 sources)Hallucinations; Translations: [Hallucinations, unspecified] 98-09-6241IqffedyfByuocejp codes; unclassified (10 sources)Personal history of other complications of , childbirth and the puerperium; Translations: [Personal history of other genital system and obstetric disorders]37-02-1867AbhlzbhpOfyveops codes; unclassified (5 sources)Hallucinations, unspecified; Translations: [Hallucinations]07-17-2022 EpisodicResidual codes; unclassified (20 sources)Auditory hallucinations; Translations: [Auditory hallucinations] 49-76-4279GthgxeleXiubnenb codes; unclassified (9 sources)Auditory hallucinations; Translations: [Hallucinations]09-07-2022 EpisodicSchizophrenia and other psychotic disorders (20 sources)Psychotic disorder; Translations: [Unspecified psychosis not due to a substance or known physiological condition]23-11-3905DyvvcfeRbmdvnt and intentional self-inflicted injury (20 sources)Suicidal thoughts; Translations: [Suicidal ideations]08-31-2021 EpisodicUnclassified (18 sources)Advanced maternal age ; Translations: [Advanced maternal age affecting , antepartum]07-53-0973Fqcochkztsfi (17 sources)Chiari malformation; Translations: [Chiari malformation]12-13-2020 Unclassified (3 sources)Drug therapy osoobtl19-54-7110Lesysfx tract infections (16 sources)Chronic cystitis; Translations: [Other chronic cystitis without hematuria]Onset: 540644-56-5782SxthlpbEteeghy tract infections (20 sources)Urinary tract infectious disease; Translations: [Urinary tract infection, site not specified]Onset: 938016-29-2417Vmikjixe Past or Other Problems Problem ClassificationProblemDateDocumented DateEpisodic/ChronicBlindness and vision defects (2 sources)Abnormal vision; Translations: [Unspecified visual disturbance]Onset: 341381-77-5323GzxlzrybVgngrmm dysrhythmias (20 sources)Sinus bradycardia; Translations: [Other specified cardiac dysrhythmias]Onset: 743159-67-7257IoadcgycXoamnfiyrhtp of device; implant or graft (1 source)Other mechanical complication of infusion catheter, initial encounter; Translations: [Other mechanical complication of infusion catheter, initial encounter]Onset: 91-78-5721ZcskqwsoIihfniyfhg and other anemia (20 sources)Anemia; Translations: [Anemia, unspecified]Onset: 10-24-2013 11-47-3565UuikphixKshlohcx; convulsions (16 sources)Seizure; Translations: [Unspecified convulsions]Onset: 06-08-2023 78-22-5649TcbfmtkbXflocrcvez disorders (2 sources)Esophagitis; Translations: [Esophagitis]Onset: EpisodicOther connective tissue disease (2 sources)Swelling of left upper limb; Translations: [Other specified soft tissue disorders]Onset: 727122-02-1366VhgqyhweInfmh disorders of stomach and duodenum (2 sources)Pyloric stenosis; Translations: [Adult hypertrophic pyloric stenosis] Onset: 717752-63-3378EmjaaeiiXmnld gastrointestinal disorders (2 sources)Constipation; Translations: [Constipation, unspecified]Onset: 059719-33-0021TwzjnzhaVtfjj gastrointestinal disorders (2 sources)Gastric anastomotic stricture; Translations: [Disease of digestive system, unspecified]Onset: 929578-74-1159AxfyszszVwtpa lower respiratory disease (1 source)Shortness of breath; Translations: [Shortness of breath]Onset: 33-25-7430FpaawjopBstkmzrkc; thrombophlebitis and thromboembolism (14 sources)Acute deep venous thrombosis of left axillary vein; Translations: [Acute embolism and thrombosis ofleft axillary vein]Onset: EpisodicResidual codes; unclassified (2 sources)Edema of the upper extremity ; Translations: [Localized edema]Onset: 20-94-5227KrmlcigcPbcsamyk codes; unclassified (2 sources)History of partial gastrectomy; Translations: [Acquired absence of stomach [part of]]Onset: 982743-95-1132TkngsxlvYhbchaskntz; intervertebral disc disorders; other back problems (20 sources)Neck pain; Translations: [Cervicalgia]Onset: EpisodicSyncope (20 sources)Syncope; Translations: [Syncope and collapse]Onset: 01-20-2023 67-26-6826IxacwpqrWyyzsuhcmndx (17 sources)History of intubation of gastrointestinal tract via jejunostomy; Translations: [History of jejunostomy tube placement]07-14-2021 Results Test NameValueInterpretationReference RangeFacilityAmbulatory Visit Summaryon 86-51-6606Ulcsselsah Visit SummaryAmbulatory Visit Summary MARICARMEN ANDERSON :1980 [...] signed up for this yet, please contact [employer] at [phone] to get signed up today. Language Information Language assistance services are available as needed. [facility] Office/Clinic Noteon 73-98-4982Fptqucc Office/Clinic NoteUrology Office/Clinic Note Chief Complaint 6 [...] cysto., # 2 tab(s), Refills(s) 0, Pharmacy: [facility]/pharmacy #[id number], 167, cm, 04/28/23 10:12:00 EST, Height/Length Dosing, 111, kg, 04/28/23 10:12:00 EST, Weight Dosing 49864 Measure Post Void residual urine and/or bladder capacity by US- non-imaging E&M of Est. Patient Low 20-29 Min 98922 Urnls Dip Stick Auto w/o Microscopy POC 16794 2. Incomplete bladder emptying (R33.9: Retention of urine, unspecified) PVR (cc): 04/09/21 - 58 09/03/22 - 254 04/27/23 - 161 06/02/24 - 286 Today - 74ml. Improved. Recommend timed voids and double void maneuvers. Ordered: E&M of Est. Patient Low 20-29 Min 70908 3. 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 Abd MRI 01/21/23 [facility] [place] septated T2 hyperintense lesion involving superior pole of L kidney measuring up to 9mm (does not appear to enhance on postcontrast imaging). An additional subcentimeter T2 hyperintense lesion involving inferior pole of L kidney measuring up to about 4mm (too small for accurate characterization). R kidney unremarkable. CRESCENCIO 05/30/24 [facility] [place] - cystic changes with questionable kidney stones. CT 07/04/24 - no evidence of prior lesion. Resolved. No further imaging indicated. Ordered: E&M of Est. Patient Low 20-29 Min 85850 Follow-up With When Contact Information [facility] Additional Instructions: Only if needed/new problems [...] Protein Urine Dipstick: Negative (01/02/25 08:30:00) Specific [place] Urine Dipstick: 1.015 (01/02/25 08:30:00) Urine Appearance Urine Dipstick: Slightly cloudy (01/02/25 08:30:00) Urine Color Urine Di (more content not included)...TriHealthComment on above:Result Comment: Electronically Signed By: ESTELA CHUNG PA-C\Date and Time Signed: 01/02/2510:35 EDTBasic Metabolic Panelon 24-72-9668Fppga gap [Moles/Vol]10.7 mmol/LNormal6.0-15.0The [facility] Physician GroupComment on above:Performed By: #### BMP, PT, PTT #### [facility] [address] [place] [address] USACalcium [Mass/Vol]8.8 mg/dLNormal8.6-10.3The [facility] Physician GroupComment on above:Performed By: #### BMP, PT, PTT #### [facility] [address] [place] [address] USAChloride [Moles/Vol]106 mmol/WXsjflj38-071Tai [facility] Physician GroupComment on above:Performed By: #### BMP, PT, PTT #### [facility] [address] [place] [address] USACO2 [Moles/Vol]24.9 mmol/FQsnoew19.0-31.0The [facility] Physician GroupComment on above:Performed By: #### BMP, PT, PTT #### [facility] [address] [place] [address] USACreatinine [Mass/Vol]0.92 mg/dLNormal0.60-1.20The [facility] Physician GroupComment on above:Performed By: #### BMP, PT, PTT #### [facility] [address] [place] [address] USACreatinine Clr Calc Mfwezvac128.07NormalThPower County Hospital Physician GroupComment on above:Result Comment: PERFORMED BY: [place] [address] PATHOLOGIST CAMERA PERSON KANDACE CANTU M.D.Performed By: #### BMP, PT, PTT #### [place] [address] USAGFR/1.73 sq M.predicted MDRD (S/P/Bld) [Vol rate/Area] mL/min/{1.73_m2}NormalThe [facility] Physician GroupComment on above:Performed By: #### BMP, PT, PTT #### [place] [address] USAGlucose [Mass/Vol]99 mg/dPUpipzg57-899Ylc [facility] Physician GroupComment on above:Result Comment: Random Glucose Reference Range is dependent on time and content of last meal. Glucose of more than 200 mg/dL in a nonstressed, ambulatory subject supports the diagnosis of Diabetes Mellitus. ADA recommended reference rangePerformed By: #### BMP, PT, PTT #### [place] [address] USAPotassium [Moles/Vol]3.6 mmol/LNormal3.5-5.1The [facility] Physician GroupComment on above:Performed By: #### BMP, PT, PTT #### [place] [address] USASodium [Moles/Vol]138 mmol/VEfokcs087-685Cjt [facility] Physician GroupComment on above:Performed By: #### BMP, PT, PTT #### [facility] [address] [place] [address] USAUrea nitrogen [Mass/Vol]11 mg/dLNormal7-25The [facility] Physician GroupComment on above:Performed By: #### BMP, PT, PTT #### [facility] [address] [place] [address] USABasophils Auto (Bld) [#/Vol]Ordered By: Franc Barlow on 02-94-9751Yswmjmbum (Bld) [#/Vol]Automated basophil count0.0-0.2FParkwood HospitalBasophils/100 WBC Auto (Bld)Ordered By: Franc Barlow on 45-65-7934Rzinevamc/100 WBC (Bld)Automated basophil %.[facility] HospitalCalcium [Mass/volume] in Serum or PlasmaOrdered By: Franc Barlow on 95-35-8352Cgzgnbj [Mass/Vol]Calcium [Mass/volume] in Serum or Plasma8.6-10.3 [facility] HospitalCarbon dioxide, total [Moles/volume] in Serum or PlasmaOrdered By: Franc Barlow on 69-24-0356GX4 [Moles/Vol]Carbon dioxide, total [Moles/volume] in Serum or Bwtrtl76.0-31.0[facility] HospitalChloride [Moles/volume] in Serum or PlasmaOrdered By: Franc Barlow on 31-68-9466Ydofemrc [Moles/Vol]Chloride [Moles/volume] in Serum or Lngpny90-413 [facility] HospitalComplete Blood Count Auto Diffon 11-17-2024 Basophils (Bld) [#/Vol]0.1 10*3/uLNormal0.0-0.2The [facility] Comment on above:Result Comment: PERFORMED BY: [facility] [address] [place] [address] PATHOLOGIST [employer]ERA PERSON KANDACE CANTU M.D.Performed By: #### CBC #### [facility] [address] [place] [address] USABasophils/100 WBC (Bld)1.4 %Normal.The [facility] Physician GroupComment on above:Performed By: #### CBC #### [facility] [address] [place] [address] USAEosinophils (Bld) [#/Vol]0.1 10*3/uLNormal0.0-0.45The [facility] Physician GroupComment on above:Performed By: #### CBC #### [place] [address] USAEosinophils/100 WBC (Bld)2.4 %Normal.The [facility] Physician GroupComment on above:Performed By: #### CBC #### [place] [address] USAErythrocyte distribution width (RBC) [Ratio]13.7 %Normal 11.9-15.3The [facility] Physician GroupComment on above:Performed By: #### CBC #### [place] [address] USAHematocrit (Bld) [Volume fraction]40.0 %Mytfmq05.0-46.4The [facility] Physician GroupComment on above:Performed By: #### CBC #### [place] [address] USAHemoglobin (Bld) [Mass/Vol]14.0 g/eZVkdfeu62.8-15.4The [facility] Physician GroupComment on above:Performed By: #### CBC #### [place] [address] USALymphocytes (Bld) [#/Vol]1.2 10*3/uLNormal1.00-4.8The [facility] Physician GroupComment on above:Performed By: #### CBC #### [place] [address] USALymphocytes/100 WBC (Bld)30.9 %Normal.The [facility] Physician GroupComment on above:Performed By: #### CBC #### [place] [address] USAMCH (RBC) [Entitic mass]34.4 rlFvwu73.7-34.3The [facility] Physician GroupComment on above:Performed By: #### CBC #### [address] (RBC) [Entitic vol]98.0 pUSayaij23-248Msh [facility] Physician GroupComment on above:Performed By: #### CBC #### [place] [address] USAMean Corpuscular HGB Conc35.1 g/oHRgah56.0-35.0The [facility] Physician GroupComment on above:Performed By: #### CBC #### [place] [address] USAMonocytes (Bld) [#/Vol]0.5 10*3/uLNormal0.0-0.8The [facility] Physician GroupComment on above:Performed By: #### CBC #### [place] [address] USAMonocytes/100 WBC (Bld)12.7 %Normal.The [facility] Physician GroupComment on above:Performed By: #### CBC #### [place] [address] USANeutrophils (Bld) [#/Vol]2.1 10*3/uLNormal1.8-7.7The [facility] Physician GroupComment on above:Performed By: #### CBC #### [place] [address] USANeutrophils/100 WBC (Bld)52.6 %Normal.The [facility] Physician GroupComment on above:Performed By: #### CBC #### [place] [address] USANRBC%0.1 /100{WBC}Normal0-0.5The [facility] Comment on above:Performed By: #### CBC #### [place] [address] USAPlatelet mean volume (Bld) [Entitic vol]7.0 fLNormal 6.3-10.7The [facility] Physician GroupComment on above:Performed By: #### CBC #### [facility] [address] [place] [address] USAPlatelets (Bld) [#/Vol]199 10*3/nZHskldm479-037Zfn [facility] Physician GroupComment on above:Performed By: #### CBC #### [facility] [address] [place] [address] USARBC (Bld) [#/Vol]4.08 10*6/uLNormal3.60-5.00The [facility] Physician GroupComment on above:Performed By: #### CBC #### [facility] [address] [place] [address] USAWBC (Bld) [#/Vol]3.9 10*3/uLNormal3.8-11.6The [facility] Physician GroupComment on above:Performed By: #### CBC #### [place] [address] USACreatinine [Mass/volume] in Serum or PlasmaOrdered By: Franc Barlow on 22-70-0388Gkxguxzpem [Mass/Vol]Creatinine [Mass/volume] in Serum or Plasma0.60-1.20[facility]aritan HospitalECG 12 lead ECGon 19-69-5844FVZ 12 lead [facility] Main [place] [address] [place] [address] Electrocardiograph Report Signed Patient: Maricarmen Anderson MR#: [id number] : 1980 Acct:[id number] Age/Sex: 44 / F ADM Date: 11/17/24 Loc: [place] Room: Type: [facility] Attending Dr: Gaurav Oliver MD Ordering [...] are now present Confirmed by Palomo Manzo ([id number]) on 11/17/2024 7:13:41 PM Referred By: Electronically Signed By: Palomo Manzo Transcribed By: MUS Signed By Palomo Manzo MD 11/17/241912[facility] Physician GroupEosinophils Auto (Bld) [#/Vol] Ordered By: Franc Barlow on 09-74-0464Lhcjqtddhyi (Bld) [#/Vol]Automated eosinophil count0.0-0.45[facility] HospitalEosinophils/100 WBC Auto (Bld)Ordered By: Franc Barlow on 29-03-6094Nmrbvzbfiap/100 WBC (Bld) Automated eosinophil %.[facility]itan HospitalErythrocyte distribution width Auto (RBC) [Ratio]Ordered By: Franc Barlow on 41-34-7946Hdsfkotbovl distribution width (RBC) [Ratio]Erythrocyte distribution width [Ratio] by Automated count11.9-15.3FParkwood HospitalGlucose [Mass/volume] in Serum or PlasmaOrdered By: Franc Barlow on 28-96-9294Kioefci [Mass/Vol] Glucose [Mass/volume] in Serum or Evjxjy24-191YzewzamrwTrihealth Good Samaritan Hospital Comment on above:ADA recommended reference rangeRandom Glucose Reference Range is dependent on time and content of last meal. Glucose of more than 200 mg/dL in a nonstressed, ambulatory subject supports the diagnosisof Diabetes Mellitus. HCG ( test) IA.rapid Ql (U)Ordered By: Franc Barlow on 91-74-8833XZH ( test) Ql (U)Urine human chorionic gonadotropin (hCG) detection by immunoassayTrihealth Good Samaritan HospitalHCG,Urineon 03-86-3959Xeix HCG ( test) Ql (U)NegativeNoBlue Ridge Regional Hospital Physician GroupComment on above:Result Comment: PERFORMED BY: [facility] [address] [place] [address] PATHOLOGIST CAMERA PERSON KANDACE CANTU M.D.Performed By: #### UHCG #### [facility] [address] [place] [address] USAHematocrit Auto (Bld) [Volume fraction]Ordered By: Franc Barlow on 25-00-3864Nrtotwgpgb (Bld) [Volume fraction]Hematocrit [Volume Fraction] of Blood by Automated count34.0-46.4FParkwood Hospital Hemoglobin [Mass/volume] in BloodOrdered By: Franc Barlow on 11-17-2024 Hemoglobin (Bld) [Mass/Vol]Hemoglobin [Mass/volume] in Blood11.8-15.4FParkwood HospitalINR in Platelet poor plasma by Coagulation assayOrdered By: Franc Barlow on 18-35-6857KIH Coag (PPP) [Relative time]INR in Platelet poor plasma by Coagulation assayTrihealth Good Samaritan HospitalComment on above:INR Therapeutic Range A) Pre- [...] heart valves: 3 - 4.5Lon 11-17-2024L Specimen: [id number] Received: 11/17/24 Status: ABRAM Fox Num: [id number] Spec Type: Surgical Subm Dr: Gaurav Oliver MD Tissues: A Gross Only (INFUSAPORT) Procedures: Level 1 Gross Age/ Patient Sex Location Account Attending Physician Maricarmen Anderson 44/F [place] [id number] Gaurav Oliver MD SPEC NUM: [id number] RECD: 11/17/24 STATUS: ABRAM FOX NUM: [id number] ALEN: 11/17/24-[address]: Gaurav Oliver MD ENTERED: 11/17/[address] [facility] [address]: CECILIO TYPE: Surgical DEPT: S ENTERED BY: [id number] RECV BY: [id number] ORDERED: Level 1 Gross ORDERED: Level 1 Gross Pathological Diagnosis Replacement removal of the nonfunctioning manager medical: -An Intact piece of Jhgree-a-Apwx. Gross only examination Clinical Information Nonfunctioning Ateirq-c-Oiap Gross Description Part A is received fresh labeled with the patients name, date of , and Iozwwq-l-Xlwm is a white, plastic like disc, 2.2 cm in diameter by 1.1 cm in thickness. 1 surface of the specimen displays a rubbery, translucent, somewhat depressible center, 0.9 cm in diameter that is engraved CT . The opposing surface of the specimen is engraved PORT-A-CATH 38Q162 . Extending from the disc is a cylindrical segment of white rubbery tubing, 25 cm in length by 0.3 cm in diameter that is engraved with the numerals 10 and 20. GROSS ONLY- Gross photographs are taken Specimen: [id number] Received: 11/17/24 Status: ABRAM Millercandi Num: [id number] Spec Type: Surgical Subm Dr: Gaurav Oliver MD Tissues: A Gross Only (INFUSAPORT) Procedures: Level 1 Gross Patient: Maricarmen Anderson [id number] (Continued) Specimen: [id number] Received: 11/17/24 (Continued) Signed (signature on file) Jose Rivers MD 11/18/24 1421 Specimen: [id number] Received: 11/17/24 Status: ABRAM Fox Num: [id number] Spec Type: Surgical Subm Dr: Gaurav Oliver MD Tissues: A Gross Only (INFUSAPORT) Procedures: Level 1 Gross Patient: Maricarmen Anderson [id number] (Continued) Specimen: [id number] Received: 11/17/24 (Continued) Microscopic Description Not provided CPT Codes 20698 GROSS PHOTO GROSS PHOTO Specimen: [id number] Received: 11/17/24 Status: ABRAM Fox Num: [id number] Spec Type: Surgical Subm Dr: Gaurav Oliver MD Tissues: A Gross Only (INFUSAPORT) Procedures: Level 1 Gross Patient: Maricarmen Anderson [id number] (Continued) Signed (signature on file) Jose Rivers MD 11/18/[address] [place] [address] Physician GroupLeukocytes [#/volume] corrected for nucleated erythrocytes in Blood by Automated counOrdered By: Franc Barlow on 98-17-9521UGQ corrected for nucl RBC Auto (Bld) [#/Vol]Leukocytes [#/volume] corrected for nucleated erythrocytes in Blood by Automated coun3.8-11.6FParkwood HospitalLymphocytes Auto (Bld) [#/Vol]Ordered By: Franc Barlow on 86-67-7292Hmfppcsgaqb (Bld) [#/Vol]Lymphocytes [#/volume] in Blood by Automated count1.00-4.8[facility]aritan HospitalLymphocytes/100 WBC Auto (Bld)Ordered By: Franc Barlow on 93-91-5824Nmcgyayixzv/100 WBC (Bld) Lymphocytes/100 leukocytes in Blood by Automated count.[facility]aritan HospitalMCH Auto (RBC) [Entitic mass]Ordered By: Franc Barlow on 62-34-4495SQP (RBC) [Entitic mass]MCH [Entitic mass] by Automated countHigh 24.7-34.3FParkwood HospitalMCHC Auto (RBC) [Mass/Vol]Ordered By: Franc Barlow on 63-89-8706XXSA (RBC) [Mass/Vol]MCHC [Mass/volume] by Automated nxktlLosn47.0-35.0[facility] HospitalMCV Auto (RBC) [Entitic vol] Ordered By: Franc Barlow on 91-98-2914BXP (RBC) [Entitic vol]MCV [Entitic volume] by Automated -169XbuqbfjuoTrihealth Good Samaritan HospitalMonocytes Auto (Bld) [#/Vol]Ordered By: Franc Barlow on 29-69-8227Dkjbxmxll (Bld) [#/Vol] Automated blood monocyte count0.0-0.8[facility] Monocytes/100 WBC Auto (Bld)Ordered By: Franc Barlow on 11-17-2024 Monocytes/100 WBC (Bld)Automated monocyte %.[facility] Neutrophils Auto (Bld) [#/Vol]Ordered By: Franc Barlow on 11-17-2024 Neutrophils (Bld) [#/Vol]Neutrophils [#/volume] in Blood by Automated count 1.8-7.7FParkwood HospitalNeutrophils/100 WBC Auto (Bld)Ordered By: Franc Barlow on 76-00-6696Vbkrqeagcch/100 WBC (Bld)Automated neutrophil %. [facility]itan HospitalNo Panel InformationOrdered By: Franc Barlow on 39-66-3738Bncxwsbxr GFR (CKD-EPI)> 60.0 mL/MinTrihealth Good Samaritan HospitalPharmacy Creatinine Clearance (Jqxv276.07[facility] Nucleated erythrocytes [Presence] in Blood by Automated countOrdered By: Franc Barlow on 63-63-4736Cxilfnzxa RBC Auto Ql (Bld)Nucleated erythrocytes [Presence] in Blood by Automated count0-0.5FParkwood Hospital Partial Thromboplastin Timeon 25-24-1277jJGO Coag (Bld) [Time]25.8 sNormal 25.1-36.5The [facility] Physician GroupComment on above:Result Comment: A hematocrit value greater than 55% may lead to inaccurate results in coagulation testing. Patients having hematocrit values >55% require a special collection tube for coagulation studies. Please contact the laboratory at [phone] for redraw instructions. PERFORMED BY: [address] [address] PATHOLOGIST CAMERA PERSON KANDACE CANTU M.D.Performed By: #### BMP, PT, PTT #### [facility] [address] [place] [address] USAPlatelet mean volume Auto (Bld) [Entitic vol]Ordered By: Franc Barlow on 45-00-0108Afqgwmvm mean volume (Bld) [Entitic vol]Platelet mean volume [Entitic volume] in Blood by Automated count6.3-10.7FParkwood HospitalPlatelets Auto (Bld) [#/Vol]Ordered By: Franc Barlow on 51-50-6053Jvpzcgiwa (Bld) [#/Vol]Platelets [#/volume] in Blood by Automated ixmiw057-717NeyziltfvTrihealth Good Samaritan HospitalPotassium [Moles/volume] in Serum or PlasmaOrdered By: Franc Barlow on 65-11-2110Bioynrqsf [Moles/Vol]Potassium [Moles/volume] in Serum or Plasma3.5-5.1FParkwood Hospital Prothrombin Time INRon 62-63-5511FOJ Coag (PPP) [Relative time]1.2 {INR}Normal [facility] Physician GroupComment on above:Result Comment: INR Therapeutic [...] 4.5Performed By: #### BMP, PT, PTT #### [facility] [address] [place], [place] [id number] USAPT Coag (PPP) [Time]13.1 sHigh9.0-12.9The [facility] Physician GroupComment on above:Result Comment: A hematocrit value greater than 55% may lead to inaccurate results in coagulation testing. Patients having hematocrit values >55% require a special collection tube for coagulation studies. Please contact the laboratory at [phone] for redraw instructions.Performed By: #### BMP, PT, PTT #### [facility] [address] [place] [address] USAProthrombin time (PT)Ordered By: Franc Barlow on 80-27-2656QJ Coag (PPP) [Time]Prothrombin time (PT)High9.0-12.9[facility]aritan HospitalComment on above:A hematocrit value greater than 55% may lead to inaccurate results in coagulation testing. Patientshaving hematocrit values >55% require a special collection tube for coagulation studies. Please c ontact the laboratory at [phone] for redraw instructions.RBC Auto (Bld) [#/Vol]Ordered By: Franc Barlow on 78-56-5219SYS (Bld) [#/Vol]Erythrocytes [#/volume] in Blood by Automated count3.60-5.00[facility] Serum or plasma anion gap determinationOrdered By: Franc Barlow on 11-17-2024 Anion gap [Moles/Vol]Serum or plasma anion gap determination6.0-15.0[facility] Medical Centerodium [Moles/volume] in Serum or PlasmaOrdered By: Franc Barlow on 72-14-3934Zcanaj [Moles/Vol]Sodium [Moles/volume] in Serum or Szoihq245-029XeziiqbrsTrihealth Good Samaritan HospitalUrea nitrogen [Mass/volume] in Serum or PlasmaOrdered By: Franc Barlow on 98-42-2353Oisu nitrogen [Mass/Vol] Urea nitrogen [Mass/volume] in Serum or Plasma7-25Tri[facility]aritan HospitalWBC Auto (Bld) [#/Vol]Ordered By: Franc Barlow on 22-15-4863MUE (Bld) [#/Vol]Leukocytes [#/volume] in Blood by Automated count3.8-11.6FParkwood HospitalX-ray reportOrdered By: Adam Escamilla on 06-47-5091Pzaev reportLOUIS STOK[facility] Main [place] [address] [place] [address] XRay Report Signed Patient: Maricarmen Anderson MR#: [id number] : 1980 Acct:[id number] Age/Sex: 44 / F ADM Date: 5 Loc: [place] Room: Type: [facility] Attending Dr: Gaurav Oliver MD Copies to: Gaurav Oliver MD~ Ordering Provider: Gaurav Oliver MD Date of Service: 11/17/24 XR/XR chest 1V portable: POST INFUSAPORT EXCHANGE RIGHT SIDE XR chest 1V portable 11/17/2024 1:04 PM SIGNS AND SYMPTOMS: ^POST INFUSAPORT EXCHANGE RIGHT SIDE PROTOCOL: Frontal radiograph the chest COMPARISON: 12/19/2022 FINDINGS: The trachea is midline. There is a new right-sided Dcgiez-k-Pmwu is present with the tip in the superior vena cava. There is no pneumothorax. There is a dual lead pacer device on the left. The heart and mediastinal structures are within normal limits. The lung parenchyma is clear. The bony thorax is intact. XR/XR chest 1V portable IMPRESSION: There is a new right-sided Lwphsn-a-Hikl is present with the tip in the superiorvena cava. There isno pneumothorax. Impression dictated by: Adam Escamilla M.D. 11/17/2024 1:19 PM Dictation Location: [facility]--24 Transcribed By: [facility] 11/17/24 131 Dictated By: Adam Escamilla II, MD 11/17/24 1317 Signed By: 11/17/24 1319 [facility] Work Phone: XR chest 1V portableon 76-71-3289PH chest 1V portable [facility] Main [address] [address] XRay Report Signed Patient: Maricarmen Anderson MR#: [id number] : 1980 Acct:[id number] Age/Sex: 44 / F ADM Date: 11/17/24 Loc: [place] Room: Type: [facility] Attending Dr: Gaurav Oliver MD Copies to: Gaurav Oliver MD Ordering Provider: Gaurav Oliver MD Date of Service: 11/17/24 XR/XR chest 1V portable: POST INFUSAPORT EXCHANGE RIGHT SIDE XR chest 1V portable 11/17/2024 1:04 PM SIGNS AND SYMPTOMS: POST INFUSAPORT EXCHANGE RIGHT SIDE PROTOCOL: Frontal radiograph the chest COMPARISON: 12/19/2022 FINDINGS: The trachea is midline. There is a new right-sided Ijkasr-o-Hmwz is present with the tip in the superior vena cava. There is no pneumothorax. There is a dual lead pacer device on the left. The heart and mediastinal structures are within normal limits. The lung parenchyma is clear. The bony thorax is intact. XR/XR chest 1V portable IMPRESSION: There is a new right-sided Kzzlok-e-Nhmw is present with the tip in the superior vena cava. There is no pneumothorax. Impression dictated by: Adam Escamilla M.D. 11/17/2024 1:19 PM Dictation Location: [place] [address] Transcribed By: RAFA 11/17/24 1319 Dictated By: Adam Escamilla II, MD 11/17/24 1317 Signed By: 11/17/24 1319[facility] Physician GroupaPTT in Platelet poor plasma by Coagulation assayOrdered By: Franc Barlow on 39-53-8420aZVU Coag (PPP) [Time] Activated partial thromboplastin time (aPTT) in platelet poor plasma by coagulation a25.1-36.5FParkwood HospitalComment on above:A hematocrit value greater than 55% may lead to inaccurate results in coagulation testing. Patientshaving hematocrit values >55% require a special collection tube for coagulation studies. Please contact the laboratory at [phone] for redraw instructions.Basophils Auto (Bld) [#/Vol]on 75-86-3198Decukpuvs (Bld) [#/Vol]Automated basophil count0.0-0.1FParkwood Hospital Basophils/100 WBC Auto (Bld)on 38-32-4859Onyfnqfwy/100 WBC (Bld)Automated basophil %0.2-2.0[facility]aritan HospitalEosinophils/100 WBC Auto (Bld) on 74-31-9865Zpsbemjtxnl/100 WBC (Bld)Automated eosinophil %Low0.9-7.0[facility]aritan HospitalErythrocyte distribution width Auto (RBC) [Ratio]on 99-74-1152Ayryymmmoar distribution width (RBC) [Ratio]Erythrocyte distribution width [Ratio] by Automated count11.0-15.0[facility] Estimated glomerular filtration rate (GFR) non- Americanon 10-31-2024 GFR/1.73 sq M.predicted among non-blacks MDRD (S/P/Bld) [Vol rate/Area]Estimated glomerular filtration rate (GFR) non- AmericanLow>=60 mL/min/1.73m 2 [facility]aritan HospitalHematocrit Auto (Bld) [Volume fraction]on 90-09-0055Rxzeyjzykk (Bld) [Volume fraction]Hematocrit [Volume Fraction] of Blood by Automated count36.0-48.0[facility]itan HospitalHemoglobin [Mass/volume] in Bloodon 92-72-8250Sjfrppxpji (Bld) [Mass/Vol]Hemoglobin [Mass/volume] in Blood12.0-16.0[facility]itan HospitalIron binding capacity [Mass/volume] in Serum or Plasmaon 85-31-2621Sduf binding capacity [Mass/Vol]Iron binding capacity [Mass/volume] in Serum or Svipbd999.0-450.0 [facility]itan HospitalIron saturation [Mass Fraction] in Serum or Plasmaon 88-71-6569Jifr saturation [Mass fraction]Iron saturation [Mass Fraction] in Serum or PlasmaTrihealth Good Samaritan HospitalLaboratory - Chemistry and Chemistry - challengeon 04-83-2280Bjdqneo [Mass/Vol]8.8 mg/dL 8.5-10.1FParkwood HospitalChloride [Moles/Vol]104 mmol/L98-107 [facility] HospitalCO2 [Moles/Vol]28.6 mmol/L21.0-32.0[facility] HospitalCobalamin (Vitamin B12) [Mass/Vol]655 pg/eO931-9177 [facility]aritan HospitalComment on above:Performed at: - [facility] [address] [id number] Director: Prabhakar Warrne PhD, Phone: [phone] [Mass/Vol]1.06 mg/dLHigh0.55-1.02[facility]aritan HospitalFerritin [Mass/Vol]136.0 ng/mL8.0-252.0[facility] HospitalGFR/1.73 sq M.predicted MDRD (S/P/Bld) [Vol rate/Area]mL/min/{1.73_m2} >=60 mL/min/1.73m 2FParkwood HospitalGlucose [Mass/Vol]132 mg/dL Tjee42-410PxbornxybTrihealth Good Samaritan HospitalIron [Mass/Vol]59.0 ug/dL50.0-170.0 [facility] HospitalPotassium [Moles/Vol]3.3 mmol/LLow3.5-5.1 [facility] Centerodium [Moles/Vol]137 mmol/T513-908PckihpsnkTrihealth Good Samaritan HospitalUrea nitrogen [Mass/Vol]8.0 mg/dL7.0-18.0[facility]aritan HospitalUrea nitrogen/Creatinine [Mass ratio]7.5 mg/mgTrihealth Good Samaritan HospitalLaboratory - Hematology and Cell countson 10-31-2024 Immature granulocytes/100 WBC (Bld)0.0 %0.0-0.5FParkwood Hospital Leukocytes [#/volume] corrected for nucleated erythrocytes in Blood by Automated counon 45-12-2544VQS corrected for nucl RBC Auto (Bld) [#/Vol]Leukocytes [#/volume] corrected for nucleated erythrocytes in Blood by Automated counLow 4.0-11.0[facility]aritan HospitalLymphocytes Auto (Bld) [#/Vol]on 47-19-5823Ofbgljkdcac (Bld) [#/Vol]Lymphocytes [#/volume] in Blood by Automated countLow1.2-3.8[facility]itan HospitalLymphocytes/100 WBC Auto (Bld)on 77-82-5317Oehwhbwlxzo/100 WBC (Bld)Lymphocytes/100 leukocytes in Blood by Automated count20.5-60.0[facility] SystemH Auto (RBC) [Entitic mass]on 24-74-7884KWF (RBC) [Entitic mass]MCH [Entitic mass] by Automated count 26.7-34.0[facility]aritan HospitalMCHC Auto (RBC) [Mass/Vol]on 92-65-0979IOAY (RBC) [Mass/Vol]MCHC [Mass/volume] by Automated count29.9-35.2 [facility]aritan HospitalMCV Auto (RBC) [Entitic vol]on 11-03-5924PRT (RBC) [Entitic vol]MCV [Entitic volume] by Automated vjltlUzbw75.0-99.0[facility]itan HospitalMonocytes Auto (Bld) [#/Vol]on 71-12-2880Bsacjyofn (Bld) [#/Vol]Automated blood monocyte count0.3-0.8[facility] Monocytes/100 WBC Auto (Bld)on 25-56-6896Yvdbltkxu/100 WBC (Bld)Automated monocyte %High1.7-12.0[facility]itan HospitalNeutrophils Auto (Bld) [#/Vol]on 61-29-2138Oydjyfbytwk (Bld) [#/Vol]Neutrophils [#/volume] in Blood by Automated countLow1.4-6.5FParkwood HospitalNeutrophils/100 WBC Auto (Bld)on 95-17-1913Ufftdwbqcsp/100 WBC (Bld)Automated neutrophil %43.0-75.0 [facility]itan HospitalNo Panel Informationon 134682-Jisshir Vitamin D Total39.3 ng/mLTrihealth Good Samaritan HospitalComment on above:<20 ng/mL Vit D -<30 ng/mL Vit D -800 ng/mL Vit D sufficient>100 ng/mL Potential ToxicityEosinophils # (Auto)0.0 10 3/uL0.0-0.7 [facility]aritan HospitalImmature Granulocyte # (Auto)0.00 10 3/uL 0.00-0.03[facility]aritan HospitalPlatelet mean volume Auto (Bld) [Entitic vol]on 58-58-1789Xtjjnatd mean volume (Bld) [Entitic vol]Platelet mean volume [Entitic volume] in Blood by Automated count9.5-13.5FParkwood HospitalPlatelets Auto (Bld) [#/Vol]on 74-56-0845Ozuatucnl (Bld) [#/Vol] Platelets [#/volume] in Blood by Automated uubyvKmm799-697NmoymxsarTrihealth Good Samaritan HospitalRBC Auto (Bld) [#/Vol]on 19-82-4079YDK (Bld) [#/Vol]Erythrocytes [#/volume] in Blood by Automated countLow4.20-5.40[facility] Medical Centererum or plasma anion gap determinationon 24-17-8008Leqyl gap [Moles/Vol] Serum or plasma anion gap determinationTrihealth Good Samaritan HospitalINR in Platelet poor plasma by Coagulation assayon 45-38-1512HVK Coag (PPP) [Relative time]INR in Platelet poor plasma by Coagulation assayTrihealth Good Samaritan HospitalComment on above:DESIRED INR:2.0-3.0 CONDITIONS NOT LISTED BELOW2.5-3.5 FOR PROSTHETIC HEART VALVE REPLACEMENT2.5-3.5 RECURRENT THROMBOSISNo Panel Informationon 44-55-8173Ycgsl Chorionic Gonadotropin, QualNegativeNEGATIVE [facility]itan HospitalProthrombin time (PT)on 62-68-7240JC Coag (PPP) [Time]Prothrombin time (PT)High9.0-11.6FParkwood HospitalMR cervical spine wo conon 55-56-3286WQ cervical spine wo [facility] [place] [address] MRI Report Signed Patient: Maricarmen Anderson MR#: [id number] : 1980 Acct:[id number] Age/Sex: 43 / F ADM Date: 08/31/24 Loc: MR Room: Type: [facility] [...] Praful Manley M.D.08/31/2024 10:20 AM Dictation Location: [place] [address] Transcribed By: [facility] 08/31/24 1020 Dictated By: Praful Manley MD 08/31/24 0947 Signed By: 08/31/[address] [place] [address] Physician GroupMagnetic resonance imaging reportOrdered By: Praful Manley on 14-81-7228Wihik reportLOUIS STOKES C[facility] Main [place] [address] [place] [address] MRI Report Signed Patient: Maricarmen Anderson MR#: [id number] : 1980 Acct:[id number] Age/Sex: 43 / F ADM Date: 5 [...] Praful Manley M.D.08/31/2024 10:20 AM Dictation Location: [place] [address] Transcribed By: [facility] 08/31/24 1020 Dictated By: Praful Manley MD 08/31/24 0947 Signed By: 08/31/24 1020 [facility] Work Phone: INR in Platelet poor plasma by Coagulation assayon 08-66-5839KED Coag (PPP) [Relative time]INR in Platelet poor plasma by Coagulation assayTrihealth Good Samaritan HospitalComment on above:DESIRED INR:2.0-3.0 CONDITIONS NOT LISTED BELOW2.5-3.5 FOR PROSTHETIC HEART VALVE REPLACEMENT2.5-3.5 RECURRENT THROMBOSISNo Panel Informationon 39-40-8795Xtclx Chorionic Gonadotropin, QualNegativeNEGATIVETrihealth Good Samaritan Hospital Prothrombin time (PT)on 41-08-9429LZ Coag (PPP) [Time]Prothrombin time (PT) 9.0-11.6FParkwood HospitalBasophils Auto (Bld) [#/Vol]on 31-07-0574Usmeymmzr (Bld) [#/Vol]Automated basophil count0.0-0.1FParkwood HospitalBasophils/100 WBC Auto (Bld)on 42-20-4623Gewzvahxl/100 WBC (Bld)Automated basophil %0.2-2.0[facility] Eosinophils/100 WBC Auto (Bld)on 95-31-1843Bsldzaqczpe/100 WBC (Bld)Automated eosinophil %0.9-7.0[facility] HospitalErythrocyte distribution width Auto (RBC) [Ratio]on 32-65-6233Akdzajiupju distribution width (RBC) [Ratio]Erythrocyte distribution width [Ratio] by Automated count11.0-15.0 [facility] HospitalEstimated glomerular filtration rate (GFR) non- Americanon 56-09-7965XGN/1.73 sq M.predicted among non-blacks MDRD (S/P/Bld) [Vol rate/Area]Estimated glomerular filtration rate (GFR) non->=60 mL/min/1.73m 2FParkwood HospitalHematocrit Auto (Bld) [Volume fraction]on 15-31-5083Zvfshxbmdc (Bld) [Volume fraction]Hematocrit [Volume Fraction] of Blood by Automated count36.0-48.0[facility] HospitalHemoglobin [Mass/volume] in Bloodon 90-00-4027Mtxhgjqlem (Bld) [Mass/Vol] Hemoglobin [Mass/volume] in Blood12.0-16.0[facility] HospitalIron binding capacity [Mass/volume] in Serum or Plasmaon 44-56-6813Uxyj binding capacity [Mass/Vol]Iron binding capacity [Mass/volume] in Serum or Plasma 250.0-450.0[facility] HospitalIron saturation [Mass Fraction] in Serum or Plasmaon 63-17-4379Axxa saturation [Mass fraction]Iron saturation [Mass Fraction] in Serum or PlasmaTrihealth Good Samaritan HospitalLaboratory - Chemistry and Chemistry - challengeon 77-53-7661Gvkasjs [Mass/Vol]9.2 mg/dL 8.5-10.1FParkwood HospitalChloride [Moles/Vol]105 mmol/L98-107 [facility] HospitalCO2 [Moles/Vol]28.3 mmol/L21.0-32.0[facility] HospitalCobalamin (Vitamin B12) [Mass/Vol]617 pg/rR406-2080 [facility]aritan HospitalComment on above:Performed at: - [facility] [address] [id number] Director: Prabhakar Warren PhD, Phone: [phone] [Mass/Vol]0.94 mg/dL0.55-1.02[facility] HospitalFerritin [Mass/Vol]76.0 ng/mL8.0-252.0[facility] HospitalGFR/1.73 sq M.predicted MDRD (S/P/Bld) [Vol rate/Area]mL/min/{1.73_m2}>=60 mL/min/1.73m 2FParkwood HospitalGlucose [Mass/Vol]96 mg/aK21-732 [facility]itan HospitalIron [Mass/Vol]116.0 ug/dL50.0-170.0[facility] HospitalPotassium [Moles/Vol]4.3 mmol/L3.5-5.1FSamaritan Hospitalodium [Moles/Vol]143 mmol/R130-699SduqgymywTrihealth Good Samaritan HospitalUrea nitrogen [Mass/Vol]11.0 mg/dL7.0-18.0[facility] HospitalUrea nitrogen/Creatinine [Mass ratio]11.7 mg/mgTrihealth Good Samaritan HospitalLaboratory - Hematology and Cell countson 40-31-4808Qfbzpqhw granulocytes/100 WBC (Bld)0.2 %0.0-0.5FParkwood Hospital Leukocytes [#/volume] corrected for nucleated erythrocytes in Blood by Automated counon 86-50-3524IKF corrected for nucl RBC Auto (Bld) [#/Vol]Leukocytes [#/volume] corrected for nucleated erythrocytes in Blood by Automated coun 4.0-11.0[facility] HospitalLymphocytes Auto (Bld) [#/Vol]on 13-07-0075Qcdrqnolfod (Bld) [#/Vol]Lymphocytes [#/volume] in Blood by Automated count1.2-3.8[facility] HospitalLymphocytes/100 WBC Auto (Bld)on 94-20-9945Cqtagjocvwu/100 WBC (Bld)Lymphocytes/100 leukocytes in Blood by Automated count20.5-60.0[facility] Auto (RBC) [Entitic mass]on 26-28-4499RSA (RBC) [Entitic mass]MCH [Entitic mass] by Automated count High26.7-34.0[facility] SystemHC Auto (RBC) [Mass/Vol]on 33-07-6941WHJF (RBC) [Mass/Vol]MCHC [Mass/volume] by Automated count29.9-35.2 [facility] SystemV Auto (RBC) [Entitic vol]on 73-02-0034ARF (RBC) [Entitic vol]MCV [Entitic volume] by Automated mlnfpYjfi53.0-99.0[facility] HospitalMain OR Intraoperative Recordon 80-34-0343Uobn OR Intraoperative RecordMain OR Intraoperative Record IntraOp Document Type FTURO Summary Primary Physician: Michael HAN MD Finalized Date/Time: 07/05/24 13:38:20 Pt. Name: MARICARMEN ANDERSON/Sex: 1980 Female Med Rec #: [id number] Physician: Michael HAN MD Financial #: [id number] Pt. Type: O Room/Bed: / Admit/Disch: 07/05/24 [...] Sheyla Mullins Role Performed Surgeon - Primary Vocational Rehab Consultant - Primary Scrub - Primary Time In [...] Prep Agents Betadine Solution Skin. Condition Intact, [place], Warm, & Description N/A Dry Additional None [...] Jolie Caldwell 07/05/24 13:38 Jolie Caldwell 07/05/24 13:38NoMer[facility] HospitalMain OR Preoperative Recordon 12-42-3294Sdgk OR Preoperative RecordMain OR Preoperative Record Holding Area Document Type FTURO Summary Primary Physician: Michael HAN MD Finalized Date/Time: 07/05/24 13:21:29 Pt. Name: MARICARMEN NADERSON D.O.B./Sex: 1980 Female Med Rec #: [id number] Physician: Michael HAN MD Financial #: [id number] Pt. Type: O Room/Bed: / Admit/Disch: 07/05/24 [...] Complaints of Pain: No Skin Integrity Intact, [place], Warm, & Dry Vitals - EU Blood [...] Gottlieb LPN 07/05/24 13:09 Jolie Caldwell 07/05/24 13:21TriHealthMonocytes Auto (Bld) [#/Vol]on 07-81-8785Xdevlihng (Bld) [#/Vol]Automated blood monocyte count0.3-0.8[facility] HospitalMonocytes/100 WBC Auto (Bld)on 48-38-1895Veyfvqntd/100 WBC (Bld)Automated monocyte %1.7-12.0[facility]itan HospitalNeutrophils Auto (Bld) [#/Vol]on 04-04-2752Shhmziouwwj (Bld) [#/Vol]Neutrophils [#/volume] in Blood by Automated count1.4-6.5FParkwood HospitalNeutrophils/100 WBC Auto (Bld)on 07-05-2024 Neutrophils/100 WBC (Bld)Automated neutrophil %43.0-75.0[facility] HospitalNo Panel Informationon 626789-Jwpsvxq Vitamin D Total31.2 ng/mLTrihealth Good Samaritan HospitalComment on above:<20 ng/mL Vit D zsbdlwqul59-<30 ng/mL Vit D wqchonzepceu72-362 ng/mL Vit D sufficient>100 ng/mL Potential ToxicityEosinophils # (Auto)0.1 10 3/uL0.0-0.7FParkwood HospitalImmature Granulocyte # (Auto)0.01 10 3/uL0.00-0.03[facility] HospitalOperative Reporton 00-98-8793Toyxfqlja ReportOperative Report Patient: MARICARMEN ANDERSON Age: 43 [...] up arranged. Urethra was dilated from 22-30 [place] with [place] sounds.TriHealthComment on above:Result Comment: Electronically Signed By: FELICE PATINO, Michael Ricci\Date and Time Signed: 07/05/24 13:40 ESTPlatelet mean volume Auto (Bld) [Entitic vol]on 26-03-1050Rpcczlcy mean volume (Bld) [Entitic vol] Platelet mean volume [Entitic volume] in Blood by Automated count9.5-13.5 [facility] Samaritan HospitalPlatelets Auto (Bld) [#/Vol]on 07-05-2024 Platelets (Bld) [#/Vol]Platelets [#/volume] in Blood by Automated -640 [facility]aritan HospitalRBC Auto (Bld) [#/Vol]on 00-71-0696DVX (Bld) [#/Vol]Erythrocytes [#/volume] in Blood by Automated countLow4.20-5.40[facility] Medical Centererum or plasma anion gap determinationon 66-43-6509Ekini gap [Moles/Vol]Serum or plasma anion gap determinationTrihealth Good Samaritan HospitalCT abdomen pelvis w conon 60-28-2801RL abdomen pelvis w con [facility] [place] [address] CT Scan Report Signed Patient: Maricarmen Anderson MR#: [id number] : 1980 Acct:[id number] Age/Sex: 43 / F ADM Date: 07/04/24 Loc: CT Room: Type: [facility] Attending Dr: Michael Han MD Copies to: [...] Oro Jr., D.OBeatris07/04/2024 2:58 PM Dictation Location: [place] [address] Transcribed By: [facility] 07/04/24 1458 Dictated By: Mitchel Oro Jr, DO 07/04/24 1455 Signed By: 07/04/24 1458[facility] Physician GroupBasophils Auto (Bld) [#/Vol]on 75-51-4023Xjifdcunr (Bld) [#/Vol]Automated basophil count0.0-0.1FParkwood HospitalBasophils/100 WBC Auto (Bld)on 60-97-2447Brisoiccp/100 WBC (Bld)Automated basophil %0.2-2.0[facility] HospitalCholesterol in LDL Calc [Mass/Vol]on 53-36-5585Sdatnawttey in LDL [Mass/Vol]Cholesterol in LDL [Mass/volume] in Serum or Plasma by calculationTrihealth Good Samaritan HospitalComment on above:<100 mg/dl YVAEBHC545-944 mg/dl NEAR OR ABOVE SFVXTDU283- 159 mg/dl BORDERLINE PQJY413-036 mg/dl HIGH>190 mg/dl VERY HIGHCholesterol in VLDL Calc [Mass/Vol]on 75-36-9586Xmvdjdimpzt in VLDL [Mass/Vol]Cholesterol in VLDL [Mass/volume] in Serum or Plasma by calculationTrihealth Good Samaritan HospitalEosinophils/100 WBC Auto (Bld)on 45-22-9550Kmzdgxmqtre/100 WBC (Bld) Automated eosinophil %0.9-7.0[facility] HospitalErythrocyte distribution width Auto (RBC) [Ratio]on 56-61-3650Sgchxyspceo distribution width (RBC) [Ratio]Erythrocyte distribution width [Ratio] by Automated count11.0-15.0 [facility] HospitalEstimated glomerular filtration rate (GFR) non- Americanon 04-68-8167RGZ/1.73 sq M.predicted among non-blacks MDRD (S/P/Bld) [Vol rate/Area]Estimated glomerular filtration rate (GFR) non- AmericanLow>=60 mL/min/1.73m 2FParkwood HospitalGlucose mean value [Mass/volume] in Blood Estimated from glycated hemoglobinon 06-02-2024 Average glucose Estimated from glycated hemoglobin (Bld) [Mass/Vol]Glucose mean value [Mass/volume] in Blood Estimated from glycated hemoglobinTrihealth Good Samaritan HospitalHematocrit Auto (Bld) [Volume fraction]on 06-02-2024 Hematocrit (Bld) [Volume fraction]Hematocrit [Volume Fraction] of Blood by Automated count36.0-48.0[facility] HospitalHemoglobin [Mass/volume] in Bloodon 81-78-9782Acizvynrzy (Bld) [Mass/Vol]Hemoglobin [Mass/volume] in Blood12.0-16.0[facility] HospitalIron binding capacity [Mass/volume] in Serum or Plasmaon 67-71-1260Knjn binding capacity [Mass/Vol]Iron binding capacity [Mass/volume] in Serum or Pwmamt924.0-450.0 [facility]itan HospitalIron saturation [Mass Fraction] in Serum or Plasmaon 92-10-3006Onsn saturation [Mass fraction]Iron saturation [Mass Fraction] in Serum or PlasmaTrihealth Good Samaritan HospitalLaboratory - Chemistry and Chemistry - challengeon 95-89-8780Rkdbmqy [Mass/Vol]9.1 mg/dL 8.5-10.1FParkwood HospitalChloride [Moles/Vol]105 mmol/L98-107 [facility] HospitalCholesterol [Mass/Vol]186 mg/dL<=200[facility] HospitalCholesterol in HDL [Mass/Vol]72 mg/pLEapi96-18CvygjkpreTrihealth Good Samaritan HospitalComment on above:> or =60 mg/dl - LOW CARDIOVASCULAR RISK<40 mg/dl - HIGH CARDIOVASCULAR RISKCO2 [Moles/Vol]29.9 mmol/L21.0-32.0 [facility] HospitalCobalamin (Vitamin B12) [Mass/Vol]241 pg/mL 232-1245[facility] Samaritan HospitalComment on above:Performed at: - [facility] [id number] Director: Prabhakar Warren PhD, Phone: [phone] [Mass/Vol]1.16 mg/dLHigh0.55-1.02 [facility] HospitalFerritin [Mass/Vol]78.0 ng/mL8.0-252.0[facility] HospitalGFR/1.73 sq M.predicted MDRD (S/P/Bld) [Vol rate/Area] mL/min/{1.73_m2}>=60 mL/min/1.73m 2FParkwood HospitalGlucose [Mass/Vol]101 mg/oI91-276UlevrhmfmTrihealth Good Samaritan HospitalIron [Mass/Vol]112.0 ug/dL50.0-170.0[facility] HospitalPotassium [Moles/Vol]3.9 mmol/L 3.5-5.1FSamaritan Hospitalodium [Moles/Vol]141 mmol/O920-275 [facility] HospitalTriglyceride [Mass/Vol]86 mg/dL<=150[facility] HospitalUrea nitrogen [Mass/Vol]7.0 mg/dL7.0-18.0[facility] HospitalUrea nitrogen/Creatinine [Mass ratio]6.0 mg/mgTrihealth Good Samaritan HospitalLaboratory - Hematology and Cell countson 39-69-3329SeA7y (Bld) [Mass fraction]5.7 %4.5-6.2FParkwood HospitalComment on above:ADA RECOMMENDED LIMIT 4.0 - 6.0ADA THERAPEUTIC TARGET < 7.0ACTION SUGGESTED> 7.0Immature granulocytes/100 WBC (Bld)0.2 %0.0-0.5FParkwood HospitalLeukocytes [#/volume] corrected for nucleated erythrocytes in Blood by Automated counon 62-15-6665YYC corrected for nucl RBC Auto (Bld) [#/Vol]Leukocytes [#/volume] corrected for nucleated erythrocytes in Blood by Automated coun4.0-11.0[facility]itan HospitalLymphocytes Auto (Bld) [#/Vol]on 95-11-9790Elainicfhlm (Bld) [#/Vol]Lymphocytes [#/volume] in Blood by Automated count1.2-3.8[facility] HospitalLymphocytes/100 WBC Auto (Bld)on 33-64-1264Mkuooglbhqm/100 WBC (Bld)Lymphocytes/100 leukocytes in Blood by Automated count20.5-60.0[facility] SystemH Auto (RBC) [Entitic mass]on 72-51-8579LAE (RBC) [Entitic mass]MCH [Entitic mass] by Automated count26.7-34.0[facility]aritan HospitalMCHC Auto (RBC) [Mass/Vol]on 99-44-6691UNDQ (RBC) [Mass/Vol]MCHC [Mass/volume] by Automated count29.9-35.2FParkwood HospitalMCV Auto (RBC) [Entitic vol]on 38-69-5378KEI (RBC) [Entitic vol]MCV [Entitic volume] by Automated count 81.0-99.0[facility] HospitalMonocytes Auto (Bld) [#/Vol]on 94-14-9688Oxnrrnobh (Bld) [#/Vol]Automated blood monocyte count0.3-0.8[facility] HospitalMonocytes/100 WBC Auto (Bld)on 97-45-1139Gulafsaim/100 WBC (Bld)Automated monocyte %1.7-12.0[facility] Neutrophils Auto (Bld) [#/Vol]on 32-02-6925Rfssuvmktoe (Bld) [#/Vol]Neutrophils [#/volume] in Blood by Automated count1.4-6.5FParkwood Hospital Neutrophils/100 WBC Auto (Bld)on 84-88-5837Ehbwuihauab/100 WBC (Bld)Automated neutrophil %43.0-75.0[facility] HospitalNo Panel Informationon 17-89-642443669023-Mndclfp Vitamin D Total26.9 ng/mLTrihealth Good Samaritan Hospital Comment on above:<20 ng/mL Vit D ederxonps06-<30 ng/mL Vit D twvusxnxvkqc81-529 ng/mL Vit D sufficient>100 ng/mL Potential ToxicityEosinophils # (Auto)0.2 10 3/uL0.0-0.7FParkwood HospitalImmature Granulocyte # (Auto)0.01 10 3/uL0.00-0.03[facility]itan HospitalPlatelet mean volume Auto (Bld) [Entitic vol]on 64-59-5114Nfjcghqh mean volume (Bld) [Entitic vol]Platelet mean volume [Entitic volume] in Blood by Automated countLow9.5-13.5FParkwood HospitalPlatelets Auto (Bld) [#/Vol]on 85-07-1311Uhwjscqnd (Bld) [#/Vol] Platelets [#/volume] in Blood by Automated hyfal754-169NjxuhwpugTrihealth Good Samaritan HospitalRBC Auto (Bld) [#/Vol]on 20-23-8690TBB (Bld) [#/Vol]Erythrocytes [#/volume] in Blood by Automated count4.20-5.40[facility] Serum or plasma anion gap determinationon 35-20-8722Tseoh gap [Moles/Vol]Serum or plasma anion gap determinationAshtabula County Medical Centererum or plasma total cholesterol/high density lipoprotein (HDL) cholesterol mass edu 81-65-5870Jfaltakosnn.total/Cholesterol in HDL [Mass ratio]Serum or plasma total cholesterol/high density lipoprotein (HDL) cholesterol mass ratTrihealth Good Samaritan HospitalComment on above:3.3 - 4.4 LOW RISK4.4 - 7.1 AVERAGE RISK7.1 - 11.0 MODERATE RISK>11.0 HIGH RISKUrology Office/Clinic Noteon 95-28-7643Bwttiph Office/Clinic NoteUrology Office/Clinic Note HPI Staff 43yr [...] 161 TODAY - 286ml. See #2. Ordered: 49792 Measure Post Void residual urine and/or bladder capacity by US- non-imaging Urnls Dip Stick Auto w/o Microscopy POC 59704 2. Urethral stricture (N35.919: Unspecified urethral stricture, [...] been obtained. Will order Local anesthesia. Ordered: 65548 Measure Post Void residual urine and/or bladder capacity by US- non-imaging Urnls Dip Stick Auto w/o Microscopy POC 12081 3. Renal mass (N28.89: Other specified disorders [...] better look at the complex cyst. Ordered: 03585 Measure Post Void residual urine and/or bladder capacity by US- non-imaging Urnls Dip Stick Auto w/o Microscopy POC 49923 4. 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 [address] Additional Instructions: Follow up schedule [...] Abuse Never., 06/02/2024 Tobac (more content not included)...TriHealthComment on above:Result Comment: Electronically Signed By: ESTELA CHUNG PA-C\.br\Date and Time Signed: 06/02/2416:50 EST\.br\Electronically Co-Signed By: Shyann Yoo\.br\Date and Time Co-Signed: 06/02/24 15:54 ESTUS renal BIon 47-92-3442GL renal [facility] [place] [address] Ultrasound Report Signed Patient: Maricarmen Anderson MR#: [id number] : 1980 Acct:[id number] Age/Sex: 43 / F ADM Date: 05/30/24 [...] Oro Jr., D.O.05/30/2024 6:31 PM Dictation Location: [place] [address] Tech: Greta Reyes Transcribed By: RAFA 05/30/241830 Dictated By: Mitchel Oor Jr, DO 05/30/241828 Signed By: 05/30/241830[facility] Physician GroupPiedmont Newton 47-82-8899vJWC Coag (Bld) [Time]139.6 sCritically high23.0-36.5[facility] Hospitalcy [facility] Northern CaliforniaComment on above:Result Comment: IV Heparin Therapy Range: 66.0-92.0 secPerformed By: #### PTT #### [address] [address] Benefits Processor: Lottie Ramsey 20-91-4301Irkvpzpkilo distribution width (RBC) [Ratio]12.7 %Oahwws82.8-14.4[facility] HospitalComment on above:Performed By: #### CBC #### [address] [address] Benefits Processor: Breezy White MDHematocrit (Bld) [Volume fraction]36.5 %Normal 36.3-47.1MMarina Del Rey HospitalComment on above:Performed By: #### CBC #### [facility] [address] [place] [address] Benefits Processor: Breezy White MDHemoglobin (Bld) [Mass/Vol]12.0 g/dLNormal 11.9-15.1Mmarietta memorial hospitaly [facility] Northern CaliforniaComment on above:Performed By: #### CBC #### [address] [address] Benefits Processor: FLORIDA RamseyCH (RBC) [Entitic mass]31.9 mrBesimp15.2-33.5 [facility] HospitalComment on above:Performed By: #### CBC #### [address] [address] Benefits Processor: [place] RamseyCHC (RBC) [Mass/Vol]32.9 g/kKMpmrhr64.4-34.8 [facility] HospitalComment on above:Performed By: #### CBC #### [address] [address] Benefits Processor: [place]OR[place] RamseyCV (RBC) [Entitic vol]97.1 lNSdphct52.6-102.9 [facility] HospitalComment on above:Performed By: #### CBC #### [address] [address] Benefits Processor: Breezy White MDNRBC Automated0.0 per 100 WBCNormal0.0[facility] HospitalComment on above:Performed By: #### CBC #### [address] [address] Benefits Processor: John Ramsey mean volume (Bld) [Entitic vol]9.9 fL Normal8.1-13.5[facility] HospitalComment on above:Performed By: #### CBC #### [address] [address] Benefits Processor: Marina Ramseytejose (Bld) [#/Vol]149 10*3/bAUxlrmw553-813 [facility] HospitalComment on above:Performed By: #### CBC #### [address] [address] Benefits Processor: Breezy White MDRBC (Bld) [#/Vol]3.76 10*6/uLLow3.95-5.11[facility] HospitalComment on above:Performed By: #### CBC #### [address] [address] Benefits Processor: CARLIN Ramsey (Bld) [#/Vol]5.0 10*3/uLNormal3.5-11.3MMarina Del Rey HospitalComment on above:Performed By: #### CBC #### [place] [address] Benefits Processor: Breezy White [facility] 39-13-5175uOLG Coag (Bld) [Time]59.7 s High23.0-36.5[facility] HospitalComment on above:Result Comment: IV Heparin Therapy Range: 66.0-92.0 secPerformed By: #### PTT #### [place] [address] Benefits Processor: Radha RamseyT Coag (Bld) [Time]75.3 sHigh23.0-36.5[facility] HospitalComment on above:Result Comment: IV Heparin Therapy Range: 66.0-92.0 secPerformed By: #### PTT #### [address] [address] Benefits Processor: Radha RamseyT Coag (Bld) [Time]sCritically high23.0-36.5 [facility] HospitalComment on above:Result Comment: IV Heparin Therapy Range: 66.0-92.0 secPerformed By: #### PTT #### [address] [address] Benefits Processor: Breezy White [facility] 35-47-0814wHYV Coag (Bld) [Time]22.0 sLow 23.0-36.5[facility] HospitalComment on above:Result Comment: IV Heparin Therapy Range: 66.0-92.0 secPerformed By: #### PTT, HEPXA, CDP, BMPX, PT #### [facility] [address] [place] [address] Benefits Processor: Bobo Ramsey Metab w/rfx MGon 92-16-3088Lazrp gap [Moles/Vol]12 mmol/LNormal9-16[facility] HospitalComment on above: Performed By: #### PTT, HEPXA, CDP, BMPX, PT #### [facility] [address] [place] [address] Benefits Processor: Breezy White MDCalcium [Mass/Vol]8.9 mg/dLNormal8.6-10.4[facility] HospitalComment on above:Performed By: #### PTT, HEPXA, CDP, BMPX, PT #### [facility] [address] [place] [address] Benefits Processor: Breezy White MDChloride [Moles/Vol]105 mmol/YPdpnlq84-512PymfkMiami Valley HospitalComment on above:Performed By: #### PTT, HEPXA, CDP, BMPX, PT #### [facility] [address] [place] [address] Benefits Processor: Breezy White MDCO2 [Moles/Vol]22 mmol/MEtroyu40-09LkosjMiami Valley HospitalComment on above:Performed By: #### PTT, HEPXA, CDP, BMPX, PT #### [facility] [address] [place] [address] Benefits Processor: Breezy White MDCreatinine [Mass/Vol]0.8 mg/dLNormal0.50-0.90 [facility] HospitalComment on above:Performed By: #### PTT, HEPXA, CDP, BMPX, PT #### [facility] [address] [place] [address] Benefits Processor: SHANNAN Ramsey/1.73 sq M.predicted among non-blacks MDRD (S/P/Bld) [Vol rate/Area]mL/min/{1.73_m2}Normal>60[facility] HospitalComment on above:Result Comment: These results are [...] #### PTT, HEPXA, CDP, BMPX, PT #### [employer] [address] [place] [address] Benefits Processor: Breezy White MDGlucose [Mass/Vol]82 mg/dWYnxjwz27-79RyucpMarina Del Rey HospitalComment on above:Performed By: #### PTT, HEPXA, CDP, BMPX, PT #### [facility] [address] [place] [address] Benefits Processor: FLASH Ramseyotassium [Moles/Vol]4.0 mmol/LNormal3.7-5.3 [facility] HospitalComment on above:Performed By: #### PTT, HEPXA, CDP, BMPX, PT #### [employer] [address] [place] [address] Benefits Processor: GRETEL Ramseyodium [Moles/Vol]139 mmol/UXffbwj899-503BrigvMiami Valley HospitalComment on above:Performed By: #### PTT, HEPXA, CDP, BMPX, PT #### [employer] [address] [place] [address] Benefits Processor: Breezy White MDUrea nitrogen [Mass/Vol]10 mg/dLNormal6-20[facility] HospitalComment on above:Performed By: #### PTT, HEPXA, CDP, BMPX, PT #### [employer] [address] [place] [address] Benefits Processor: KARLY Ramsey with Diffon 90-44-1245Kgh. Basophil<0.03 Normal0.00-0.20[facility] HospitalComment on above:Performed By: #### PTT, HEPXA, CDP, BMPX, PT #### [facility] [address] [place] [address] Benefits Processor: Jez Ramsey.Imm.Granulocyte<0.55Edzwyn8.00-0.30[facility] HospitalComment on above:Performed By: #### PTT, HEPXA, CDP, BMPX, PT #### [facility] [address] [place] [address] Benefits Processor: Jez Ramsey.Neutrophil (Seg)2.93 k/uLNormal1.50-8.10 [facility] HospitalComment on above:Performed By: #### PTT, HEPXA, CDP, BMPX, PT #### [facility] [address] [place] [address] Benefits Processor: Breezy White MDBasophils/100 WBC (Bld)0 %Normal0-2MMarina Del Rey HospitalComment on above:Performed By: #### PTT, HEPXA, CDP, BMPX, PT #### [facility] [address] [place] [address] Benefits Processor: Breezy White MDEosinophils (Bld) [#/Vol]0.08 10*3/uLNormal 0.00-0.44[facility] HospitalComment on above:Performed By: #### PTT, HEPXA, CDP, BMPX, PT #### [facility] [address] [place] [address] Benefits Processor: CINTHYA Ramseyosinophils/100 WBC (Bld)2 %Normal1-4[facility] HospitalComment on above:Performed By: #### PTT, HEPXA, CDP, BMPX, PT #### [facility] [address] [place] [address] Benefits Processor: Breezy White MDErythrocyte distribution width (RBC) [Ratio]12.8 %Fxllkm19.8-14.4[facility] HospitalComment on above:Performed By: #### PTT, HEPXA, CDP, BMPX, PT #### [address] [address] Benefits Processor: Breezy White MDHematocrit (Bld) [Volume fraction]38.6 %Normal 36.3-47.1MMarina Del Rey HospitalComment on above:Performed By: #### PTT, HEPXA, CDP, BMPX, PT #### [address] [address] Benefits Processor: Breezy White MDHemoglobin (Bld) [Mass/Vol]12.5 g/dLNormal 11.9-15.1MMarina Del Rey HospitalComment on above:Performed By: #### PTT, HEPXA, CDP, BMPX, PT #### [facility] [address] [place] [phone] Benefits Processor: Breezy White MDImmature granulocytes/100 WBC (Bld)0 %Normal0 [facility] HospitalComment on above:Performed By: #### PTT, HEPXA, CDP, BMPX, PT #### [facility] [address] [place] [phone] Benefits Processor: Breezy White MDLymphocytes (Bld) [#/Vol]1.24 10*3/uLNormal 1.10-3.70[facility] HospitalComment on above:Performed By: #### PTT, HEPXA, CDP, BMPX, PT #### [facility] [address] [place] [address] Benefits Processor: Raheel Ramseymphocytes/100 WBC (Bld)27 %Yoxjlz69-65PlqqrMiami Valley HospitalComment on above:Performed By: #### PTT, HEPXA, CDP, BMPX, PT #### [place] [address] Benefits Processor: FLOR[place] RamseyCH (RBC) [Entitic mass]31.9 ykTbqrcu46.2-33.5 [facility] HospitalComment on above:Performed By: #### PTT, HEPXA, CDP, BMPX, PT #### [place] [address] Benefits Processor: MORTEZA RamseyC (RBC) [Mass/Vol]32.4 g/lPFabbhg61.4-34.8 [facility] HospitalComment on above:Performed By: #### PTT, HEPXA, CDP, BMPX, PT #### [place] [address] Benefits Processor: FLOR[place] RamseyCV (RBC) [Entitic vol]98.5 sXXypgqq32.6-102.9 [facility] HospitalComment on above:Performed By: #### PTT, HEPXA, CDP, BMPX, PT #### [place] [address] Benefits Processor: FLOR[place] Ramseyonocytes (Bld) [#/Vol]0.35 10*3/uLNormal 0.10-1.20[facility] HospitalComment on above:Performed By: #### PTT, HEPXA, CDP, BMPX, PT #### [facility] [address] [place] [address] Benefits Processor: [place]OR[place] Ramseyonocytes/100 WBC (Bld)8 %Normal3-12[facility] HospitalComment on above:Performed By: #### PTT, HEPXA, CDP, BMPX, PT #### [facility] [address] [place] [address] Benefits Processor: Radha Ramseyutrophil (Seg)63 %Bvxniq37-11CscjuMiami Valley HospitalComment on above:Performed By: #### PTT, HEPXA, CDP, BMPX, PT #### [facility] [address] [place] [address] Benefits Processor: SHARON Ramsey Automated0.0 per 100 WBCNormal0.0[facility] HospitalComment on above:Performed By: #### PTT, HEPXA, CDP, BMPX, PT #### [facility] [address] [place] [address] Benefits Processor: John Ramsey mean volume (Bld) [Entitic vol]10.2 fL Normal8.1-13.5[facility] HospitalComment on above:Performed By: #### PTT, HEPXA, CDP, BMPX, PT #### [facility] [address] [place] [address] Benefits Processor: Nae Ramsey (Bld) [#/Vol]152 10*3/zAVefzhh072-265 [facility] HospitalComment on above:Performed By: #### PTT, HEPXA, CDP, BMPX, PT #### [facility] [address] [place] [address] Benefits Processor: DENILSON Ramsey (Bld) [#/Vol]3.92 10*6/uLLow3.95-5.11[facility] HospitalComment on above:Performed By: #### PTT, HEPXA, CDP, BMPX, PT #### [facility] [address] [place] [address] Benefits Processor: CARLIN Ramsey (Bld) [#/Vol]4.6 10*3/uLNormal3.5-11.3Mmarietta memorial hospitaly [facility] Children Northern CaliforniaComment on above:Performed By: #### PTT, HEPXA, CDP, BMPX, PT #### [facility] [address] [place] [address] [phone] Benefits Processor: Breezy White MDHeparin Anti-Xaon 52-60-6780Ppokhit Anti-Xa1.59 IU/LNormalMerMonterey Park HospitalComment on above:Performed By: #### PTT, HEPXA, CDP, BMPX, PT #### [facility] [address] [place] [address] Benefits Processor: Breezy White MDLaboratory - Coagulationon 76-64-2305yKKR Coag (Bld) [Time]102.5 s48.2-68.6FParkwood HospitalComment on above: RESULTS CALLED TO ALICIA WAGNER RN @BY Tanja Jj at [address] [place] [address] 21-78-4117FDN Coag (PPP) [Relative time]1.1 {INR}UK HealthcareComment on above:Result Comment: Therapeutic Range: Moderate Anticoagulant Intensity: INR = 2.0-3.0 High Anticoagulant Intensity: INR = 2.5-3.5Performed By: #### PTT, HEPXA, CDP, BMPX, PT #### [facility] [address] [place] [address] [phone] Benefits Processor: HARVINDER Ramsey Coag (PPP) [Time]13.8 yClxsan01.7-14.9[facility] HospitalComment on above:Performed By: #### PTT, HEPXA, CDP, BMPX, PT #### [facility] [address] [place] [address] [phone] Benefits Processor: Rigo Ramseyivated partial thromboplastin time (aPTT) in platelet poor plasma by coagulation aon 45-94-2525zMAD Coag (PPP) [Time]26.7 s 22.3-36.2FParkwood HospitalBasophils Auto (Bld) [#/Vol]on 19-21-2657Yeifehjwh (Bld) [#/Vol]0.0 10 3/uL0.0-0.1FParkwood HospitalBasophils/100 WBC Auto (Bld)on 28-79-6377Virhqvgyb/100 WBC (Bld)0.4 % 0.2-2.0[facility] HospitalEosinophils/100 WBC Auto (Bld)on 62-45-4393Ssdptfcpxgd/100 WBC (Bld)1.1 %0.9-7.0[facility] Erythrocyte distribution width Auto (RBC) [Ratio]on 58-22-9959Ygwpclxtgso distribution width (RBC) [Ratio]12.8 %11.0-15.0[facility] Estimated glomerular filtration rate (GFR) non- Americanon 10-28-2023 GFR/1.73 sq M.predicted among non-blacks MDRD (S/P/Bld) [Vol rate/Area] mL/min/{1.73_m2}>=60[facility] HospitalGlobulin Calc (S) [Mass/Vol]on 28-78-3394Jwtznovl (S) [Mass/Vol]3.6 g/dLTrihealth Good Samaritan HospitalHematocrit Auto (Bld) [Volume fraction]on 33-67-5785Lonxcchrxy (Bld) [Volume fraction]35.3 %36.0-48.0[facility] HospitalHemoglobin [Mass/volume] in Bloodon 22-30-4565Vflocofwja (Bld) [Mass/Vol]11.6 g/dL12.0-16.0 [facility] HospitalINR in Platelet poor plasma by Coagulation assayon 50-64-6158GHY Coag (PPP) [Relative time]0.98 {INR}[facility]itan HospitalComment on above:DESIRED INR:2.0-3.0 CONDITIONS NOT LISTED BELOW2.5-3.5 FOR PROSTHETIC HEART VALVE REPLACEMENT2.5-3.5 RECURRENT THROMBOSIS Laboratory - Chemistry and Chemistry - challengeon 41-25-1634Nwplzrb [Mass/Vol] 3.2 g/dL3.4-5.0[facility] HospitalALP [Catalytic activity/Vol]82 U/U95-824ToqzerrxwTrihealth Good Samaritan HospitalALT [Catalytic activity/Vol]12 U/L 14-59[facility] HospitalAST [Catalytic activity/Vol]15 U/L15-37 [facility] HospitalBilirubin [Mass/Vol]0.4 mg/dL0.2-1.0[facility] HospitalCalcium [Mass/Vol]9.1 mg/dL8.5-10.1FParkwood HospitalChloride [Moles/Vol]107 mmol/N34-789UjuiqtusyTrihealth Good Samaritan HospitalCO2 [Moles/Vol]27.8 mmol/L21.0-32.0[facility] Creatinine [Mass/Vol]0.92 mg/dL0.55-1.02[facility] GFR/1.73 sq M.predicted MDRD (S/P/Bld) [Vol rate/Area]mL/min/{1.73_m2}>=60 [facility] HospitalGlucose [Mass/Vol]90 mg/yD27-152HuqhyaeobTrihealth Good Samaritan HospitalNatriuretic peptide B (Bld) [Mass/Vol]152.0 pg/mL<=450.0 [facility] HospitalPotassium [Moles/Vol]4.0 mmol/L3.5-5.1FParkwood HospitalProtein [Mass/Vol]6.8 g/dL6.4-8.2FSamaritan Hospitalodium [Moles/Vol]141 mmol/O587-301DeqhnakbrTrihealth Good Samaritan HospitalUrea nitrogen [Mass/Vol]14.0 mg/dL7.0-18.0[facility] HospitalUrea nitrogen/Creatinine [Mass ratio]15.2 mg/mgTrihealth Good Samaritan HospitalLaboratory - Hematology and Cell countson 57-41-7879Ytxfyzyt granulocytes/100 WBC (Bld)0.2 %0.0-0.5FParkwood Hospital Leukocytes [#/volume] corrected for nucleated erythrocytes in Blood by Automated counon 70-27-1161KXD corrected for nucl RBC Auto (Bld) [#/Vol]5.5 10 3/uL 4.0-11.0[facility] HospitalLymphocytes Auto (Bld) [#/Vol]on 10-06-4204Krldwpbiibv (Bld) [#/Vol]1.4 10 3/uL1.2-3.8[facility] HospitalLymphocytes/100 WBC Auto (Bld)on 37-96-7538Ttketghyabj/100 WBC (Bld)25.2 % 20.5-60.0[facility] SystemH Auto (RBC) [Entitic mass]on 44-69-8094OCC (RBC) [Entitic mass]31.8 pg26.7-34.0[facility] HospitalMCHC Auto (RBC) [Mass/Vol]on 13-54-1019MVWP (RBC) [Mass/Vol]32.9 g/dL 29.9-35.2FParkwood HospitalMCV Auto (RBC) [Entitic vol]on 67-24-9730GPK (RBC) [Entitic vol]96.7 fL81.0-99.0[facility] HospitalMonocytes Auto (Bld) [#/Vol]on 01-25-3194Fgrhqaoha (Bld) [#/Vol]0.4 10 3/uL0.3-0.8[facility] HospitalMonocytes/100 WBC Auto (Bld)on 30-93-3990Nzepxdfci/100 WBC (Bld)7.3 %1.7-12.0[facility] Neutrophils Auto (Bld) [#/Vol]on 09-38-0612Zqwskqgnjzx (Bld) [#/Vol]3.6 10 3/uL 1.4-6.5FParkwood HospitalNeutrophils/100 WBC Auto (Bld)on 26-08-6959Polplrhxtgo/100 WBC (Bld)65.8 %43.0-75.0[facility] HospitalNo Panel Informationon 92-70-8255Qovlndamcbj # (Auto)0.1 10 3/uL0.0-0.7 [facility] HospitalImmature Granulocyte # (Auto)0.01 10 3/uL 0.00-0.03[facility] HospitalTroponin I High Sensitivity4.1 pg/mL 4.0-51.3FParkwood HospitalComment on above:CUT-OFF POINTS HAVE BEEN ESTABLISHED [...] INFORMATION.Platelet mean volume Auto (Bld) [Entitic vol]on 14-36-0024Wdzruijy mean volume (Bld) [Entitic vol]9.4 fL9.5-13.5FParkwood HospitalPlatelets Auto (Bld) [#/Vol] on 38-86-0029Cfpskkftc (Bld) [#/Vol]154 10 3/cW419-994RxztbsbxyTrihealth Good Samaritan HospitalProthrombin time (PT)on 61-43-5833OZ Coag (PPP) [Time]10.4 s9.0-11.6 [facility] HospitalRBC Auto (Bld) [#/Vol]on 85-69-1301BOE (Bld) [#/Vol]3.65 10 6/uL4.20-5.40[facility] Centererum or plasma albumin/globulin mass ratioon 03-36-4196Ctbpngl/Globulin [Mass ratio]0.9 {ratio} [facility] Centererum or plasma anion gap determinationon 15-37-4812Vihud gap [Moles/Vol]10.2 mmol/LFParkwood Hospital Basophils Auto (Bld) [#/Vol]on 17-84-6425Lkmejjtxm (Bld) [#/Vol]0.0 10 3/uL 0.0-0.1FParkwood HospitalBasophils/100 WBC Auto (Bld)on 07-24-0421Krdnkqkex/100 WBC (Bld)0.6 %0.2-2.0[facility] Eosinophils/100 WBC Auto (Bld)on 87-78-3095Ykalniobbds/100 WBC (Bld)1.9 %0.9-7.0 [facility] HospitalErythrocyte distribution width Auto (RBC) [Ratio]on 75-38-8610Ifxkhgbxaku distribution width (RBC) [Ratio]13.0 %11.0-15.0 [facility] HospitalEstimated glomerular filtration rate (GFR) non- Americanon 73-86-9629IVJ/1.73 sq M.predicted among non-blacks MDRD (S/P/Bld) [Vol rate/Area]mL/min/{1.73_m2}>=60[facility] Globulin Calc (S) [Mass/Vol]on 03-80-9037Eueaoorx (S) [Mass/Vol]3.3 g/dL [facility] HospitalHematocrit Auto (Bld) [Volume fraction]on 58-93-5566Izcfzrgtbo (Bld) [Volume fraction]34.1 %36.0-48.0[facility] HospitalHemoglobin [Mass/volume] in Bloodon 58-64-7171Yfvfrtkwnc (Bld) [Mass/Vol]11.0 g/dL12.0-16.0[facility] HospitalINR in Platelet poor plasma by Coagulation assayon 54-11-0249IQA Coag (PPP) [Relative time]1.02 {INR}[facility] HospitalComment on above:DESIRED INR:2.0-3.0 CONDITIONS NOT LISTED BELOW2.5-3.5 FOR PROSTHETIC HEART VALVE REPLACEMENT2.5-3.5 RECURRENT THROMBOSISLaboratory - Chemistry and Chemistry - challengeon 43-29-5231Hvtgszg [Mass/Vol]2.8 g/dL3.4-5.0[facility] HospitalALP [Catalytic activity/Vol]74 U/C13-383QscrugpgbTrihealth Good Samaritan HospitalALT [Catalytic activity/Vol]12 U/K60-95FugwvkrzhTrihealth Good Samaritan HospitalAST [Catalytic activity/Vol]11 U/K39-28FgqwtgmifTrihealth Good Samaritan HospitalBilirubin [Mass/Vol]0.5 mg/dL0.2-1.0[facility] HospitalCalcium [Mass/Vol]9.0 mg/dL8.5-10.1FParkwood HospitalChloride [Moles/Vol]106 mmol/L 98-107[facility] HospitalCO2 [Moles/Vol]25.5 mmol/L21.0-32.0 [facility] HospitalCreatinine [Mass/Vol]0.76 mg/dL0.55-1.02 [facility] HospitalGFR/1.73 sq M.predicted MDRD (S/P/Bld) [Vol rate/Area]mL/min/{1.73_m2}>=60[facility] HospitalGlucose [Mass/Vol]87 mg/mG38-571KfhzgmpoiTrihealth Good Samaritan HospitalLactate [Moles/Vol]1.1 mmol/L0.4-2.0[facility] HospitalPotassium [Moles/Vol]4.2 mmol/L 3.5-5.1FParkwood HospitalProtein [Mass/Vol]6.1 g/dL6.4-8.2 [facility] Centerodium [Moles/Vol]140 mmol/B908-720MdyuciidcTrihealth Good Samaritan HospitalUrea nitrogen [Mass/Vol]8.0 mg/dL7.0-18.0[facility] HospitalUrea nitrogen/Creatinine [Mass ratio]10.5 mg/mgTrihealth Good Samaritan HospitalLaboratory - Coagulationon 09-46-8778pGKR Coag (Bld) [Time]81.9 s48.2-68.6FParkwood HospitalComment on above:RESULTS CALLED TO Gretta COFFEY)@BY Estela Montanez MLT at 0504Laboratory - Hematology and Cell countson 55-33-7822Dmspxoeb granulocytes/100 WBC (Bld)0.2 % 0.0-0.5FParkwood HospitalLeukocytes [#/volume] corrected for nucleated erythrocytes in Blood by Automated counon 41-27-2355KPQ corrected for nucl RBC Auto (Bld) [#/Vol]4.7 10 3/uL4.0-11.0[facility] Lymphocytes Auto (Bld) [#/Vol]on 10-02-1049Ohgappjvdpq (Bld) [#/Vol]1.8 10 3/uL 1.2-3.8[facility] HospitalLymphocytes/100 WBC Auto (Bld)on 64-24-3829Cwnkheqcofv/100 WBC (Bld)37.7 %20.5-60.0[facility] SystemH Auto (RBC) [Entitic mass]on 35-78-9315ITP (RBC) [Entitic mass]31.4 pg 26.7-34.0[facility] HospitalMCHC Auto (RBC) [Mass/Vol]on 63-44-0619ZFLU (RBC) [Mass/Vol]32.3 g/dL29.9-35.2FParkwood HospitalMCV Auto (RBC) [Entitic vol]on 49-25-0402XXO (RBC) [Entitic vol]97.4 fL 81.0-99.0[facility] HospitalMonocytes Auto (Bld) [#/Vol]on 89-01-4604Wylpirskl (Bld) [#/Vol]0.3 10 3/uL0.3-0.8[facility] HospitalMonocytes/100 WBC Auto (Bld)on 28-83-5459Cwfwszjdk/100 WBC (Bld)7.2 % 1.7-12.0[facility] HospitalNeutrophils Auto (Bld) [#/Vol]on 08-20-5806Cseakrjpeog (Bld) [#/Vol]2.5 10 3/uL1.4-6.5FParkwood HospitalNeutrophils/100 WBC Auto (Bld)on 80-39-6095Kbdchalxick/100 WBC (Bld)52.4 % 43.0-75.0[facility] HospitalNo Panel Informationon 10-27-2023 Eosinophils # (Auto)0.1 10 3/uL0.0-0.7FParkwood HospitalImmature Granulocyte # (Auto)0.01 10 3/uL0.00-0.03[facility] Platelet mean volume Auto (Bld) [Entitic vol]on 75-11-2413Wtxuxnyn mean volume (Bld) [Entitic vol]9.9 fL9.5-13.5FParkwood HospitalPlatelets Auto (Bld) [#/Vol]on 69-89-7899Bsfdlzrab (Bld) [#/Vol]122 10 3/eE503-904VcxtxgmuaTrihealth Good Samaritan HospitalProthrombin time (PT)on 18-16-4725OI Coag (PPP) [Time] 10.8 s9.0-11.6FParkwood HospitalRBC Auto (Bld) [#/Vol]on 42-21-1407IYE (Bld) [#/Vol]3.50 10 6/uL4.20-5.40[facility] Centererum or plasma albumin/globulin mass ratioon 16-99-2197Duexapr/Globulin [Mass ratio]0.8 {ratio}[facility] Centererum or plasma anion gap determinationon 56-70-8425Nyfpb gap [Moles/Vol]12.7 mmol/LFParkwood HospitalAmorphous urine sedimenton 11-58-5579Cpolunltr sediment LM Ql (Urine sed)FEWTrihealth Good Samaritan HospitalAutomated epithelial cells count in urine sediment (number/area)on 66-40-4132Mqgxtwkked cells Auto (Urine sed) [#/Area]MANY #/LPFNONE/RARETrihealth Good Samaritan HospitalBacteria [Presence] in Urine by Automatedon 88-97-9250Ercfsvga Auto Ql (U)NONE SEEN #/HPFNONE SEEN [facility] HospitalBasophils Auto (Bld) [#/Vol]on 10-26-2023 Basophils (Bld) [#/Vol]0.0 10 3/uL0.0-0.1FParkwood Hospital Basophils/100 WBC Auto (Bld)on 45-38-6303Fdwswbamd/100 WBC (Bld)0.5 %0.2-2.0 [facility] HospitalBilirubin Auto test strip (U) [Mass/Vol]on 11-39-5982Vlnbhvpha (U) [Mass/Vol]NegativeNEGATIVETrihealth Good Samaritan HospitalCasts typing in urine sediment by light microscopyon 70-50-0365Rqqkr LM Nom (Urine sed)NONE SEEN #/LPFNONE [facility] Eosinophils/100 WBC Auto (Bld)on 89-07-1447Rbxqipereoh/100 WBC (Bld)1.4 %0.9-7.0 [facility] HospitalErythrocyte distribution width Auto (RBC) [Ratio]on 05-71-5235Uymzdqjezvo distribution width (RBC) [Ratio]12.7 %11.0-15.0 [facility] HospitalEstimated glomerular filtration rate (GFR) non- Americanon 66-72-0725HTU/1.73 sq M.predicted among non-blacks MDRD (S/P/Bld) [Vol rate/Area]mL/min/{1.73_m2}>=60[facility] Globulin Calc (S) [Mass/Vol]on 17-06-0603Svlkawuw (S) [Mass/Vol]4.2 g/dL [facility] HospitalHCG ( test) IA.rapid Ql (U)on 10-93-3135BUV ( test) Ql (U)NegativeNEGATIVETrihealth Good Samaritan HospitalHematocrit Auto (Bld) [Volume fraction]on 81-03-0723Vvpgwbwzbr (Bld) [Volume fraction]38.5 %36.0-48.0[facility] HospitalHemoglobin [Mass/volume] in Bloodon 41-33-0798Pjlaflalhi (Bld) [Mass/Vol]12.7 g/dL12.0-16.0 [facility] HospitalINR in Platelet poor plasma by Coagulation assayon 97-51-8327GNZ Coag (PPP) [Relative time]0.96 {INR}[facility] HospitalComment on above:DESIRED INR:2.0-3.0 CONDITIONS NOT LISTED BELOW2.5-3.5 FOR PROSTHETIC HEART VALVE REPLACEMENT2.5-3.5 RECURRENT THROMBOSIS Laboratory - Chemistry and Chemistry - challengeon 03-80-1059Noybkzu (U) [Mass/Vol]NegativeNEGATIVETrihealth Good Samaritan HospitalKetones Ql (U) NegativeNEGSelect Medical Cleveland Clinic Rehabilitation Hospital, Edwin ShawpH (U)6.0 [pH]5.0-9.0[facility] Centerpecific gravity (U) [Rel density]>=1.0301.005-1.025 [facility] HospitalUrobilinogen Qn (U)1.0 {José'U}/dL0.2-1.0 [facility] HospitalAlbumin [Mass/Vol]3.4 g/dL3.4-5.0[facility] HospitalALP [Catalytic activity/Vol]98 U/Y67-195YsdydjxbmTrihealth Good Samaritan HospitalALT [Catalytic activity/Vol]11 U/G83-32FlkxvkgffTrihealth Good Samaritan HospitalAST [Catalytic activity/Vol]9 U/B40-56FvlpkrcraTrihealth Good Samaritan HospitalBilirubin [Mass/Vol]0.5 mg/dL0.2-1.0[facility] Calcium [Mass/Vol]9.5 mg/dL8.5-10.1FParkwood HospitalChloride [Moles/Vol]104 mmol/C28-113SmlhiscwqTrihealth Good Samaritan HospitalCO2 [Moles/Vol]25.6 mmol/L21.0-32.0[facility] HospitalCreatinine [Mass/Vol]0.94 mg/dL 0.55-1.02[facility] HospitalGFR/1.73 sq M.predicted MDRD (S/P/Bld) [Vol rate/Area]mL/min/{1.73_m2}>=60[facility] HospitalGlucose [Mass/Vol]96 mg/rG10-515WkvdklgqsTrihealth Good Samaritan HospitalLactate [Moles/Vol]2.3 mmol/L0.4-2.0[facility] HospitalComment on above:RESULTS CALLED TO Dustin VasquezRN)@BY Estela MontanezSLOT SHIFT SUPERVISOR at 2012Natriuretic peptide B (Bld) [Mass/Vol]55.0 pg/mL<=450.0[facility] HospitalPotassium [Moles/Vol]3.2 mmol/L3.5-5.1FParkwood HospitalProtein [Mass/Vol] 7.6 g/dL6.4-8.2FSamaritan Hospitalodium [Moles/Vol]140 mmol/L 136-145[facility] HospitalTSH Qn3.806 m[IU]/L0.358-3.740[facility] HospitalUrea nitrogen [Mass/Vol]10.0 mg/dL7.0-18.0[facility] HospitalUrea nitrogen/Creatinine [Mass ratio]10.6 mg/mgTrihealth Good Samaritan HospitalLaboratory - Hematology and Cell countson 10-26-2023 Immature granulocytes/100 WBC (Bld)0.3 %0.0-0.5FParkwood Hospital Laboratory - Specimen informationon 42-85-4253Emsldxgvuu (U)CLEARCLEARFParkwood HospitalColor (U)LT. YELLOWYELLOWTrihealth Good Samaritan HospitalLaboratory - Urinalysison 76-59-3356Ioeocnccq esterase Test strip Ql (U) SMALLNEGATIVETrihealth Good Samaritan HospitalNitrite Ql (U)NegativeNEGATIVE [facility] HospitalProtein Ql (U)NegativeNEG/TRACETrihealth Good Samaritan HospitalLeukocytes [#/area] in Urine sediment by Automated count on 02-22-8707YPS Auto (Urine sed) [#/Area]NONE SEEN #/HPF0-2FParkwood HospitalLeukocytes [#/area] in Urine sediment by Microscopy high power fieldon 54-82-3549SIN LM.HPF (Urine sed) [#/Area]5-10 #/HPFNONE SEENTrihealth Good Samaritan HospitalLeukocytes [#/volume] corrected for nucleated erythrocytes in Blood by Automated counon 59-87-5252CID corrected for nucl RBC Auto (Bld) [#/Vol]6.3 10 3/uL4.0-11.0[facility] Lymphocytes Auto (Bld) [#/Vol]on 69-47-9689Ebdmyvctnhr (Bld) [#/Vol]1.4 10 3/uL 1.2-3.8[facility] HospitalLymphocytes/100 WBC Auto (Bld)on 17-14-1527Kooharepghd/100 WBC (Bld)21.8 %20.5-60.0[facility] SystemH Auto (RBC) [Entitic mass]on 17-22-3423XFN (RBC) [Entitic mass]31.8 pg 26.7-34.0[facility] SystemHC Auto (RBC) [Mass/Vol]on 41-48-2894NFUB (RBC) [Mass/Vol]33.0 g/dL29.9-35.2FParkwood HospitalMCV Auto (RBC) [Entitic vol]on 33-97-2243WVT (RBC) [Entitic vol]96.5 fL 81.0-99.0[facility] HospitalMonocytes Auto (Bld) [#/Vol]on 28-36-8950Xfloaksrr (Bld) [#/Vol]0.5 10 3/uL0.3-0.8[facility] HospitalMonocytes/100 WBC Auto (Bld)on 00-50-6694Vqvckdapn/100 WBC (Bld)7.2 % 1.7-12.0[facility] HospitalMucus LM Ql (Urine sed)on 10-26-2023 Mucus Ql (Urine sed)SMALLNONE SEENTrihealth Good Samaritan HospitalNeutrophils Auto (Bld) [#/Vol]on 90-18-6093Oywiiptocxs (Bld) [#/Vol]4.3 10 3/uL1.4-6.5 [facility] HospitalNeutrophils/100 WBC Auto (Bld)on 10-26-2023 Neutrophils/100 WBC (Bld)68.8 %43.0-75.0[facility] HospitalNo Panel Informationon 02-03-8505Wacgo Culture ReflexedGerman HospitalUrine Microscopic ReviewGerman Hospital Eosinophils # (Auto)0.1 10 3/uL0.0-0.7FParkwood HospitalImmature Granulocyte # (Auto)0.02 10 3/uL0.00-0.03[facility] Troponin I High Sensitivity<4.0 pg/mL4.0-51.3FParkwood Hospital Comment on above:CUT-OFF POINTS HAVE BEEN [...] INFORMATION.Platelet mean volume Auto (Bld) [Entitic vol]on 00-48-6581Dgrhazel mean volume (Bld) [Entitic vol]9.8 fL9.5-13.5FParkwood HospitalPlatelets Auto (Bld) [#/Vol]on 57-26-7539Eodzcqyoh (Bld) [#/Vol]138 10 3/bZ817-958ZumdatlxzTrihealth Good Samaritan HospitalProthrombin time (PT)on 13-78-3275QV Coag (PPP) [Time]10.2 s9.0-11.6 [facility]ar[facility] HospitalRBC Auto (Bld) [#/Vol]on 11-80-6219WGY (Bld) [#/Vol]3.99 10 6/uL4.20-5.40[facility] Centererum or plasma albumin/globulin mass ratioon 41-80-1384Ywbqwvb/Globulin [Mass ratio]0.8 {ratio} [facility] Centererum or plasma anion gap determinationon 08-71-2498Bgtbx gap [Moles/Vol]13.6 mmol/LFParkwood HospitalUrine hemoglobin detection by automated test stripon 20-59-7919Ypkqesfgjp Auto test strip Ql (U)NegativeNEGATIVETrihealth Good Samaritan HospitalUrine sediment crystal identification by light microscopyon 43-94-9450Gzejbfwv LM Nom (Urine sed)None Seen #/HPFNone SeenTrihealth Good Samaritan HospitalCardiac Device Check - Remoteon 84-07-4269Lerswyfyn Study observation (narrative)[facility] Work Phone: Cardiac Device Check - RemoteOrdered By: Rita Olivia on 19-99-8570UrloxorvlbChildren's Hospital of [facility] Work Phone: Office Visit (Cardiology)on 40-63-1179Hujphb-up visit Diagnoses/Problems Assessed Complete heart block (426.0) [...] Lead; Status:Active - Perform Order,Retrospective Authorization; Requested for:[id number]; Cardiac pacemaker, Sinus bradycardia, Sinus node dysfunction, Sinus tachycardia Interr. Device Eval - Sngl/Dual/Multiple Pacemaker; Status:Hold For - Scheduling,Retrospective Authorization; Requested for:[id number]; Class 2 obesity with body mass index [...] iss (more content not included)...NormalUH TouchworksTobacco Screening.on 91-10-0397Ulajg depression screening assessmentNoAstria [facility] [employer] DO Work Phone: Fall risk assessmenta) No falls within the last year [facility] [employer] [address] DO Work Phone: Tobacco use status CPHSb) NoMSaint Cabrini Hospital [employer] DO Work Phone: Alanine aminotransferase [Enzymatic activity/volume] in Serum or PlasmaOrdered By: Ke Cage on 68-23-4450ZJT [Catalytic activity/Vol]13 U/L7-52[facility] HospitalAlbumin [Mass/volume] in Serum or Plasma by Bromocresol green (BCG) dye binding methoOrdered By: Ke Cage on 90-58-4834Lpkgwrh BCG dye [Mass/Vol]4.8 g/dL3.5-5.7FParkwood HospitalAlkaline phosphatase [Enzymatic activity/volume] in Serum or PlasmaOrdered By: Ke Cage on 66-39-8064HJW [Catalytic activity/Vol]83 U/W44-844CwnnnqhevTrihealth Good Samaritan HospitalAmphetamine Screen Ql (U)Ordered By: Ke Cage on 20-51-6584Jtwihvzfyzfu Ql (U)NegativeNegativeTrihealth Good Samaritan HospitalAspartate aminotransferase [Enzymatic activity/volume] in Serum or PlasmaOrdered By: Ke Cage on 02-39-2809XSM [Catalytic activity/Vol]20 U/L 13-39[facility] HospitalAutomated erythrocytes count in urine sediment (number/area)Ordered By: Ke Cage on 11-12-3239JEQ Auto (Urine sed) [#/Area]0-1 [HPF]0-4FParkwood HospitalAutomated leukocytes count in urine sediment (number/area)Ordered By: Ke Cage on 62-46-2942HRA Auto (Urine sed) [#/Area]5-9 [HPF]0-4FParkwood Hospital Barbiturates [Presence] in Urine by Screen methodOrdered By: Ke Cage on 04-44-6070Tdobhvsnbmqt Screen Ql (U)NegativeNegativeTrihealth Good Samaritan HospitalBasophils Auto (Bld) [#/Vol]Ordered By: Ke Cage on 12-11-2022 Basophils (Bld) [#/Vol]0.0 10*3/uL0.0-0.2FParkwood Hospital Basophils/100 WBC Auto (Bld)Ordered By: Ke Cage on 67-29-9059Zyspedjal/100 WBC (Bld)0.7 %.[facility] HospitalBenzodiazepines Screen Ql (U) Ordered By: Ke Cage on 61-03-6208Chosqacvhvzqjns Ql (U)NegativeNegative [facility] HospitalBenzoylecgonine [Presence] in Urine by Screen methodOrdered By: Ke Cage on 91-24-7169Jizjvxhnudglzeo Screen Ql (U) NegativeNegativeTrihealth Good Samaritan HospitalBilirubin Auto test strip Ql (U)Ordered By: Ke Cage on 46-76-4900Rrfujpmeq Ql (U)NegativeNegative [facility] HospitalBilirubin.total [Mass/volume] in Serum or PlasmaOrdered By: Ke Cage on 78-14-3349Rdrbhqhlw [Mass/Vol]0.6 mg/dL 0.3-1.0[facility] HospitalCalcium [Mass/volume] in Serum or Plasma Ordered By: Ke Cage on 43-05-2997Vkkphht [Mass/Vol]9.9 mg/dL8.6-10.3 [facility] HospitalCannabinoids [Presence] in Urine by Screen methodOrdered By: Ke Cage on 98-09-1013Bcwtclgcbajh Screen Ql (U)Negative NegativeTrihealth Good Samaritan HospitalComment on above:These are unconfirmed results and should not be used for legal purposes. Drug Cut-Off Concentration: AMPH 1000 ng/mL BOO 200 ng/mL HELGA 200 ng/mL COCM 300 ng/mL OP 300 ng/mL PCP 25 ng/mL THC 20 ng/mLCarbon dioxide, total [Moles/volume] in Serum or Plasma Ordered By: Ke Cage on 62-17-4260VA9 [Moles/Vol]24.2 mmol/L21.0-31.0 [facility] HospitalChloride [Moles/volume] in Serum or Plasma Ordered By: Ke Cage on 74-82-4600Womddcdo [Moles/Vol]107 mmol/L98-107 [facility] HospitalCholesterol [Mass/volume] in Serum or Plasma Ordered By: Eduardo Swain on 12-21-1293Suvknlxmpct [Mass/Vol]229 mg/dF797-991 [facility] HospitalComment on above:Chol less than 200 mg/dl low riskChol 201-239 mg/dl borderline riskChol 240 mg/dl and greater high risk Cholesterol in LDL Calc [Mass/Vol]Ordered By: Eduardo Swain on 12-11-2022 Cholesterol in LDL [Mass/Vol]129 mg/dL0-100[facility] Comment on above:LDL ATP III CLASSIFICATIONLDL less than 100 mg/dL OptimalLDL 100-129 mg/dL Near or above porkephPXY229-794 mg/dL Borderline highLDL 160-189 mg/dL HighLDL greater than 189 mg/dL Very highCholesterol in VLDL Calc [Mass/Vol]Ordered By: Eduardo Swain on 28-15-2949Oetnpcqllnk in VLDL [Mass/Vol] 13 mg/dLTrihealth Good Samaritan HospitalCreatinine [Mass/volume] in Serum or PlasmaOrdered By: Ke Cage on 32-33-8028Wbkpueoduz [Mass/Vol]0.78 mg/dL 0.60-1.20[facility] HospitalEosinophils Auto (Bld) [#/Vol]Ordered By: Ke Cage on 81-84-6633Ytvapnqrera (Bld) [#/Vol]0.1 10*3/uL0.0-0.45 [facility] HospitalEosinophils/100 WBC Auto (Bld)Ordered By: Ke Cage on 29-94-4546Ugnazoclngz/100 WBC (Bld)2.2 %.[facility] HospitalErythrocyte distribution width Auto (RBC) [Ratio]Ordered By: Ke Cage on 88-68-7340Elkihexxecb distribution width (RBC) [Ratio]12.9 %11.9-15.3 [facility] HospitalEthanol [Mass/volume] in Serum or PlasmaOrdered By: Ke Cage on 61-98-7722Bvohsme [Mass/Vol]mg/dLTrihealth Good Samaritan HospitalEthanol [Mass/Vol]TNPTrihealth Good Samaritan HospitalComment on above:Test not performedGlobulin Calc (S) [Mass/Vol]Ordered By: Ke Cage on 81-51-7808Kvemyyex (S) [Mass/Vol]2.7 g/dLTrihealth Good Samaritan Hospital Glucose [Mass/volume] in Serum or PlasmaOrdered By: Ke Cage on 12-11-2022 Glucose [Mass/Vol]87 mg/nH30-376EwjxphkpoTrihealth Good Samaritan HospitalComment on above:ADA recommended reference rangeRandom Glucose Reference Range is dependent on time and content of last meal. Glucose of more than 200 mg/dL in a nonstressed, ambulatory subject supports the diagnosisof Diabetes Mellitus.HCG ( test) IA.rapid Ql (U)Ordered By: Ke Cage on 99-21-7396PBI ( test) Ql (U)NegativeTrihealth Good Samaritan HospitalHematocrit Auto (Bld) [Volume fraction]Ordered By: Ke Cage on 58-82-6361Vxdmjmteli (Bld) [Volume fraction]41.8 %34.0-46.4FParkwood HospitalHemoglobin [Mass/volume] in BloodOrdered By: Ke Caeg on 16-73-6456Hriyhsqyui (Bld) [Mass/Vol]14.2 g/dL11.8-15.4FParkwood HospitalKetones Auto test strip (U) [Mass/Vol]Ordered By: Ke Cage on 40-62-5869Jkxhhtn (U) [Mass/Vol]NegativeNegativeTrihealth Good Samaritan HospitalLaboratory - UrinalysisOrdered By: Ke Cage on 30-57-1704Chsriyn casts LM Ql (Urine sed) 0-8 [LPF]0-8[facility] HospitalLeukocytes [#/volume] corrected for nucleated erythrocytes in Blood by Automated counOrdered By: Ke Cage on 02-57-8873QFX corrected for nucl RBC Auto (Bld) [#/Vol]5.8 10*3/uL3.8-11.6 [facility] HospitalLymphocytes Auto (Bld) [#/Vol]Ordered By: Ke Cage on 77-92-1148Vstjycuuwkz (Bld) [#/Vol]1.7 10*3/uL1.00-4.8[facility] HospitalLymphocytes/100 WBC Auto (Bld)Ordered By: Ke Cage on 65-54-4298Quuefzigwim/100 WBC (Bld)28.6 %.[facility] MCH Auto (RBC) [Entitic mass]Ordered By: Ke Cage on 57-19-1009PRO (RBC) [Entitic mass]32.4 pg24.7-34.3FParkwood HospitalMCHC Auto (RBC) [Mass/Vol]Ordered By: Ke Cage on 59-12-6521CZKU (RBC) [Mass/Vol]33.9 g/dL 32.0-35.0[facility] HospitalMCV Auto (RBC) [Entitic vol]Ordered By: Ke Cage on 75-02-3320YSY (RBC) [Entitic vol]95.4 vR94-986WwihosvicTrihealth Good Samaritan HospitalMonocyte distribution width [Entitic volume] in Blood by AutomatedOrdered By: Ke Cage on 37-04-7311Swwihjxb distribution width Auto (Bld) [Entitic vol]17.61 %0.00-20.00[facility] HospitalMonocytes Auto (Bld) [#/Vol]Ordered By: Ke Cage on 81-80-5772Nzvayclql (Bld) [#/Vol] 0.5 10*3/uL0.0-0.8[facility] HospitalMonocytes/100 WBC Auto (Bld) Ordered By: Ke Cage on 38-75-2616Xevjzchyp/100 WBC (Bld)8.1 %.[facility] HospitalNeutrophils Auto (Bld) [#/Vol]Ordered By: Ke Cage on 95-15-9229Uujowegveji (Bld) [#/Vol]3.5 10*3/uL1.8-7.7FParkwood HospitalNeutrophils/100 WBC Auto (Bld)Ordered By: Ke Cage on 65-02-3559Gaoyjzizijb/100 WBC (Bld)60.4 %.[facility] HospitalNo Panel InformationOrdered By: Ke Cage on 50-21-2017Aojumskde GFR (CKD-EPI)> 60.0 mL/MinTrihealth Good Samaritan HospitalPharmacy Creatinine Clearance (Chem 119.76[facility] HospitalNucleated erythrocytes [Presence] in Blood by Automated countOrdered By: Ke Cage on 13-87-9881Uufhhrfyo RBC Auto Ql (Bld)0.1 /100{WBC}0-0.5FParkwood HospitalOpiates [Presence] in Urine by Screen methodOrdered By: Ke Cage on 12-11-2022 Opiates Screen Ql (U)NegativeNegativeTrihealth Good Samaritan Hospital Phencyclidine Screen Ql (U)Ordered By: Ke Cage on 34-34-8176Iyccqpprqhrpj Ql (U)NegativeNegativeTrihealth Good Samaritan HospitalPlatelet mean volume Auto (Bld) [Entitic vol]Ordered By: Ke Cage on 44-63-7900Tmpasoqb mean volume (Bld) [Entitic vol]7.9 fL6.3-10.7FParkwood HospitalPlatelets Auto (Bld) [#/Vol]Ordered By: Ke Cage on 63-12-9019Vfokivryf (Bld) [#/Vol]185 10*3/cL598-846KeezfmcrqTrihealth Good Samaritan HospitalPotassium [Moles/volume] in Serum or PlasmaOrdered By: Ke Cage on 77-72-7342Hesxzorik [Moles/Vol]3.8 mmol/L 3.5-5.1FParkwood HospitalProtein Auto test strip (U) [Mass/Vol] Ordered By: Ke Cage on 54-62-7905Jdtifkj (U) [Mass/Vol]NegativeNegative [facility] HospitalProtein [Mass/volume] in Serum or PlasmaOrdered By: eK Cage on 32-36-5931Kagcgyu [Mass/Vol]7.5 g/dL6.4-8.9[facility] HospitalRBC Auto (Bld) [#/Vol]Ordered By: Ke Cage on 86-91-2541IRE (Bld) [#/Vol]4.38 10*6/uL3.60-5.00[facility] Centererum or plasma albumin/globulin mass ratioOrdered By: Ke Cage on 75-97-8922Pchzlan/Globulin [Mass ratio]1.8 {ratio}[facility] Centererum or plasma anion gap determinationOrdered By: Ke Cage on 63-11-3580Anvpj gap [Moles/Vol]12.6 mmol/L6.0-15.0[facility] Centererum or plasma high density lipoprotein (HDL) cholesterol measurement Ordered By: Eduardo Swain on 82-55-5124Jjykvtrbtkx in HDL [Mass/Vol]87 mg/dL 23-92[facility] HospitalComment on above:HDL CHOL ATP-III CLASSIFICATION Cardiovascular RiskHDL > or equal to 60 mg/dL LOWHDL < 40 mg/dL HIGHSerum or plasma total cholesterol/high density lipoprotein (HDL) cholesterol mass ratOrdered By: Eduardo Swain on 29-44-7663Csuiixokjxg.total/Cholesterol in HDL [Mass ratio]2.6 {ratio}<5.0[facility] Centerodium [Moles/volume] in Serum or PlasmaOrdered By: Ke Cage on 76-14-1382Uvlgln [Moles/Vol]140 mmol/F042-252KoqbuhhqdAshtabula County Medical Centerquamous epithelial cells detection in urine sediment by light microscopyOrdered By: Ke Cage on 56-40-0084Xxnatacfrb cells.squamous LM Ql (Urine sed)3-4 [HPF]0-2FParkwood HospitalThyrotropin [Units/volume] in Serum or PlasmaOrdered By: Eduardo Swain on 98-46-3271FGK Qn1.24 m[IU]/L0.45-5.33[facility] HospitalTriglyceride [Mass/volume] in Serum or PlasmaOrdered By: Eduardo Swain on 18-54-5552Alfedramsupv [Mass/Vol]66 mg/dL0-149[facility] HospitalComment on above:TRIG ATP III CLASSIFICATIONTRIG less than 150 mg/dL NormalTRIG 150-199 mg/dL Borderline highTRIG 200-500 mg/dL High TRIG greater than 500 mg/dL Very highStandard traceable to the Center for Disease Co nrtrol and Prevention (CDC) test method.Urea nitrogen [Mass/volume] in Serum or PlasmaOrdered By: Ke Cage on 50-42-8532Rgyp nitrogen [Mass/Vol]7 mg/dL7-25 [facility] HospitalUrine appearanceOrdered By: Ke Cage on 68-40-9120Svscnwwgac (U)Slightly cloudyClearFParkwood Hospital Urine bacteria detection by automated methodOrdered By: Ke Cage on 10-84-3824Wtuwmzfc Auto Ql (U)None seenNone SeenTrihealth Good Samaritan HospitalUrine colorOrdered By: Ke Cage on 87-27-6386Kfzqq (U)YellowYellow [facility] HospitalUrine culture routineOrdered By: Ke Cage on 30-80-9753Duuvtklk identified Cx Nom (U)2 DaysTrihealth Good Samaritan HospitalUrine glucose measurement by automated test strip (mass/volume)Ordered By: Ke Cage on 55-82-2916Uwkjhue Auto test strip (U) [Mass/Vol]Normal mg/dL NormalTrihealth Good Samaritan HospitalUrine hemoglobin detection by automated test stripOrdered By: Ke Cage on 04-07-4836Ytzwvciviy Auto test strip Ql (U)NegativeNegativeTrihealth Good Samaritan HospitalUrine leukocyte esterase detection by automated test stripOrdered By: Ke Cage on 12-11-2022 Leukocyte esterase Auto test strip Ql (U)2+NegativeTrihealth Good Samaritan HospitalUrine nitrite detection by automated test stripOrdered By: Ke Cage on 88-75-6311Khceqha Auto test strip Ql (U)NegativeNegMorrow County HospitalUrobilinogen Auto test strip (U) [Mass/Vol]Ordered By: Ke Cage on 62-31-0968Khryjoexrlfd (U) [Mass/Vol]Normal mg/dLNormalTrihealth Good Samaritan HospitalVitamin D+Metabolites [Mass/volume] in Serum or Plasma Ordered By: Eduardo Swain on 01-01-1080Vzhkzes D+Metabolites [Mass/Vol]36.5 ng/vZ47-847UsilynniiTrihealth Good Samaritan HospitalComment on above:VITAMIN D STATUS 25(OH)VITAMIN D RANGE (ng/mL) Deficient <20 Insufficient 20 to <31Ynsfjetfjs96 to 100Reference: Franklyn MF,Benjamin GRAF, Andreina MARQUEZ, et al. Evaluation,treatment, and prevention of vitamin D deficiency; an Endocrine Society clinical practice guideline. JCEM. 2010; 96(7):1911-30.WBC Auto (Bld) [#/Vol]Ordered By: Ke Cage on 74-70-3277HZM (Bld) [#/Vol]5.8 10*3/uL 3.8-11.6FParkwood HospitalpH Auto test strip (U)Ordered By: Ke Cage on 19-94-2073rG (U)1.015 [pH]1.001-1.030[facility] HospitalpH (U)6.0 [pH]5.0-9.0[facility] HospitalBasophils Auto (Bld) [#/Vol]Ordered By: Afshan Hines on 28-49-0415Rwvmrdozj (Bld) [#/Vol]0.0 10*3/uL0.0-0.2FParkwood HospitalBasophils/100 WBC Auto (Bld) Ordered By: Afshan Hines on 25-57-6820Okxmfswla/100 WBC (Bld)0.9 %.[facility] HospitalCalcium [Mass/volume] in Serum or PlasmaOrdered By: Afshan Hines on 62-07-3941Xbtackf [Mass/Vol]8.8 mg/dL8.6-10.3FParkwood HospitalCarbon dioxide, total [Moles/volume] in Serum or PlasmaOrdered By: Afshan Hines on 11-07-9869CB9 [Moles/Vol]26.4 mmol/L21.0-31.0[facility] HospitalChloride [Moles/volume] in Serum or PlasmaOrdered By: Afshan Hines on 92-23-6939Iiyxsjks [Moles/Vol]107 mmol/H05-524OtiefmkatTrihealth Good Samaritan HospitalCreatinine [Mass/volume] in Serum or PlasmaOrdered By: Afshan Hines on 56-22-4591Azjbbobokc [Mass/Vol]0.82 mg/dL0.60-1.20[facility] HospitalEosinophils Auto (Bld) [#/Vol]Ordered By: Afshan Hines on 42-41-0271Sjijukgysjk (Bld) [#/Vol]0.2 10*3/uL0.0-0.45[facility] HospitalEosinophils/100 WBC Auto (Bld)Ordered By: Afshan Hines on 60-82-3514Azuvpypvxmv/100 WBC (Bld)4.2 %.[facility] Erythrocyte distribution width Auto (RBC) [Ratio]Ordered By: Afshan Hines on 17-09-7297Xymvkrqeqlp distribution width (RBC) [Ratio]12.9 %11.9-15.3FParkwood HospitalGlucose [Mass/volume] in Serum or PlasmaOrdered By: Afshan Hines on 25-03-1380Qisvwsa [Mass/Vol]74 mg/uT44-222IxmgntouoTrihealth Good Samaritan HospitalComment on above:ADA recommended reference rangeRandom Glucose Reference Range is dependent on time and content of last meal. Glucose of more than 200 mg/dL in a nonstressed, ambulatory subject supports the diagnosisof Diabetes Mellitus.Hematocrit Auto (Bld) [Volume fraction]Ordered By: Afshan Hines on 27-36-9788Djehkxexsz (Bld) [Volume fraction]37.5 %34.0-46.4 [facility] HospitalHemoglobin [Mass/volume] in BloodOrdered By: Afshan Hines on 02-04-9172Euagyarpez (Bld) [Mass/Vol]12.5 g/dL11.8-15.4 [facility] HospitalLeukocytes [#/volume] corrected for nucleated erythrocytes in Blood by Automated counOrdered By: Afshan Hines on 11-01-2022 WBC corrected for nucl RBC Auto (Bld) [#/Vol]5.1 10*3/uL3.8-11.6FParkwood HospitalLymphocytes Auto (Bld) [#/Vol]Ordered By: Afshan Hines on 26-44-8038Kbrhhzmgfbr (Bld) [#/Vol]1.8 10*3/uL1.00-4.8[facility] HospitalLymphocytes/100 WBC Auto (Bld)Ordered By: Afshan Hines on 99-05-2408Ippelhzxhku/100 WBC (Bld)34.7 %.[facility] SystemH Auto (RBC) [Entitic mass]Ordered By: Afshan Hines on 53-20-7507ZDC (RBC) [Entitic mass]32.2 pg24.7-34.3FParkwood HospitalMCHC Auto (RBC) [Mass/Vol]Ordered By: Afshan Hines on 19-87-3115SRPM (RBC) [Mass/Vol]33.4 g/dL32.0-35.0[facility] HospitalMCV Auto (RBC) [Entitic vol] Ordered By: Afshan Hines on 12-78-8954UUM (RBC) [Entitic vol]96.5 iS85-656 [facility] HospitalMonocytes Auto (Bld) [#/Vol]Ordered By: Afshan Hines on 67-44-3667Wfliomwwn (Bld) [#/Vol]0.3 10*3/uL0.0-0.8[facility] HospitalMonocytes/100 WBC Auto (Bld)Ordered By: Afshan Hines on 48-19-7266Ptmycpryy/100 WBC (Bld)6.1 %.[facility] Neutrophils Auto (Bld) [#/Vol]Ordered By: Afshan Hines on 11-01-2022 Neutrophils (Bld) [#/Vol]2.8 10*3/uL1.8-7.7FParkwood Hospital Neutrophils/100 WBC Auto (Bld)Ordered By: Afshan Hines on 11-01-2022 Neutrophils/100 WBC (Bld)54.1 %.[facility] HospitalNo Panel InformationOrdered By: Afshan Hines on 01-26-9481Prghmfaaa GFR (CKD-EPI)> 60.0 mL/MinTrihealth Good Samaritan HospitalPharmacy Creatinine Clearance (Chem 114.96[facility] HospitalNucleated erythrocytes [Presence] in Blood by Automated countOrdered By: Afshan Hines on 24-69-7843Falywpiay RBC Auto Ql (Bld)0.1 /100{WBC}0-0.5FParkwood HospitalPlatelet mean volume Auto (Bld) [Entitic vol]Ordered By: Afshan Hines on 39-28-4392Flendfol mean volume (Bld) [Entitic vol]7.8 fL6.3-10.7FParkwood Hospital Platelets Auto (Bld) [#/Vol]Ordered By: Afshan Hines on 59-91-9706Hgtvnoiid (Bld) [#/Vol]184 10*3/hK056-098GaymzilciTrihealth Good Samaritan HospitalPotassium [Moles/volume] in Serum or PlasmaOrdered By: Afshan Hines on 11-01-2022 Potassium [Moles/Vol]4.0 mmol/L3.5-5.1FParkwood HospitalRBC Auto (Bld) [#/Vol]Ordered By: Afshan Hines on 24-13-8160YEL (Bld) [#/Vol]3.89 10*6/uL3.60-5.00[facility] Centererum or plasma anion gap determinationOrdered By: Afshan Hines on 04-33-2581Zbiiw gap [Moles/Vol]10.6 mmol/L6.0-15.0[facility] Centerodium [Moles/volume] in Serum or PlasmaOrdered By: Afshan Hines on 40-05-2690Kablkk [Moles/Vol]140 mmol/L 136-145[facility] HospitalUrea nitrogen [Mass/volume] in Serum or PlasmaOrdered By: Afshan Hines on 35-64-0910Uxrq nitrogen [Mass/Vol]14 mg/dL 7-25[facility] HospitalVitamin B12 ser/plasOrdered By: Afshan Hines on 52-73-7734Dusyvekad (Vitamin B12) [Mass/Vol]205 pg/aV643-904 [facility] HospitalWBC Auto (Bld) [#/Vol]Ordered By: Afshan Hines on 03-21-1563HYJ (Bld) [#/Vol]5.1 10*3/uL3.8-11.6FParkwood HospitalAlanine aminotransferase [Enzymatic activity/volume] in Serum or PlasmaOrdered By: Afshan Hines on 49-42-8504WQD [Catalytic activity/Vol]10 U/L7-52[facility] HospitalAlbumin [Mass/volume] in Serum or Plasma by Bromocresol green (BCG) dye binding methoOrdered By: Afshan Hines on 24-45-4310Cxfizyd BCG dye [Mass/Vol]3.4 g/dL3.5-5.7FParkwood HospitalAlkaline phosphatase [Enzymatic activity/volume] in Serum or PlasmaOrdered By: Afshan Hines on 54-57-3922JLY [Catalytic activity/Vol]66 U/L34-104 [facility] HospitalAspartate aminotransferase [Enzymatic activity/volume] in Serum or PlasmaOrdered By: Afshan iHnes on 34-01-4123GSX [Catalytic activity/Vol]15 U/X25-76GufqkhaayTrihealth Good Samaritan Hospital Bilirubin.total [Mass/volume] in Serum or PlasmaOrdered By: Afshan Hines on 68-78-3806Djbhrjkxe [Mass/Vol]0.7 mg/dL0.3-1.0[facility] Globulin Calc (S) [Mass/Vol]Ordered By: Afshan Hines on 82-78-0230Fjzhvyyx (S) [Mass/Vol]2.2 g/dLTrihealth Good Samaritan HospitalProtein [Mass/volume] in Serum or PlasmaOrdered By: Afshan Hines on 15-60-2262Lvmyoqs [Mass/Vol]5.6 g/dL6.4-8.9[facility] Centererum or plasma albumin/globulin mass ratioOrdered By: Afshan Hines on 11-22-7913Lsrqigk/Globulin [Mass ratio] 1.5 {ratio}[facility] HospitalCholesterol [Mass/volume] in Serum or PlasmaOrdered By: Nimesh Cerda on 80-23-3662Dqynzjwfddz [Mass/Vol] 181 mg/rD263-365VdubrbnxsTrihealth Good Samaritan HospitalComment on above:Chol less than 200 mg/dl low riskChol 201-239 mg/dl borderline riskChol 240 mg/dl and greater high riskCholesterol in LDL Calc [Mass/Vol]Ordered By: Nimesh Cerda on 47-40-9933Xjdhrggkezc in LDL [Mass/Vol]99 mg/dL0-100[facility] HospitalComment on above:LDL ATP III CLASSIFICATIONLDL less than 100 mg/dL OptimalLDL 100-129 mg/dL Near or above trifrhrRNL569-369 mg/dL Borderline highLDL 160-189 mg/dL HighLDL greater than 189 mg/dL Very highCholesterol in VLDL Calc [Mass/Vol]Ordered By: Nimesh Cerda on 91-77-2230Uulfyukvbvx in VLDL [Mass/Vol]18 mg/dLAshtabula County Medical Centererum or plasma high density lipoprotein (HDL) cholesterol measurementOrdered By: Nimesh Cerda on 71-66-2476Zsawgawdbwk in HDL [Mass/Vol]64 mg/hP68-71ItoyrvftrTrihealth Good Samaritan HospitalComment on above:HDL CHOL ATP-III CLASSIFICATION Cardiovascular RiskHDL > or equal to 60 mg/dL LOWHDL < 40 mg/dL HIGHSerum or plasma total cholesterol/high density lipoprotein (HDL) cholesterol mass rat Ordered By: Nimesh Cerda on 36-28-1101Ryckccfltbl.total/Cholesterol in HDL [Mass ratio]2.8 {ratio}<5.0[facility] HospitalThyrotropin [Units/volume] in Serum or PlasmaOrdered By: Nimesh Cerda on 10-29-2022 TSH Qn0.60 m[IU]/L0.45-5.33[facility] HospitalTriglyceride [Mass/volume] in Serum or PlasmaOrdered By: Nimesh Cerda on 10-29-2022 Triglyceride [Mass/Vol]92 mg/dL0-149[facility] HospitalComment on above:TRIG ATP III CLASSIFICATIONTRIG less than 150 mg/dL NormalTRIG 150-199 mg/dL Borderline highTRIG 200-500 mg/dL High TRIG greater than 500 mg/dL Very highStandard traceable to the Center for Disease Conrtrol and Prevention (CDC) test method.Vitamin D+Metabolites [Mass/volume] in Serum or PlasmaOrdered By: Nimesh Cerda on 92-91-9642Diuhgod D+Metabolites [Mass/Vol]26.3 ng/mL 30-100[facility] HospitalComment on above:VITAMIN D STATUS 25(OH)VITAMIN D RANGE (ng/mL) Deficient <20 Insufficient 20 to <69Cxdxunvkms92 to 100Reference: Franklyn ABDI,Benjamin GRAF, Andreina MARQUEZ, et al. Evaluation,treatment, and prevention of vitamin D deficiency; an Endocrine Society clinical practice guideline. JCEM. 2010; 96(7):1911-30.Alanine aminotransferase [Enzymatic activity/volume] in Serum or PlasmaOrdered By: Keven Florentino on 48-33-1748NEI [Catalytic activity/Vol]11 U/L7-52[facility] HospitalAlbumin [Mass/volume] in Serum or Plasma by Bromocresol green (BCG) dye binding methoOrdered By: Keven Florentino on 40-32-0612Ofnkuan BCG dye [Mass/Vol]3.7 g/dL3.5-5.7FParkwood HospitalAlkaline phosphatase [Enzymatic activity/volume] in Serum or PlasmaOrdered By: Keven Florentino on 26-50-7435MLO [Catalytic activity/Vol]74 U/C92-562KrktvyholTrihealth Good Samaritan HospitalAmphetamine Screen Ql (U)Ordered By: Keven Florentino on 85-10-4022Tscyoiwvhkjj Ql (U)NegativeNegativeTrihealth Good Samaritan HospitalAspartate aminotransferase [Enzymatic activity/volume] in Serum or PlasmaOrdered By: Keven Florentino on 87-21-3761GLC [Catalytic activity/Vol]15 U/X82-12KhtbtzpgsTrihealth Good Samaritan HospitalAutomated erythrocytes count in urine sediment (number/area) Ordered By: Keven Florentino on 28-94-9526RAQ Auto (Urine sed) [#/Area]1-2 [HPF]0-4 [facility] HospitalAutomated leukocytes count in urine sediment (number/area)Ordered By: Keven Florentino on 96-68-4737IXZ Auto (Urine sed) [#/Area] 10-19 [HPF]0-4FParkwood HospitalBarbiturates [Presence] in Urine by Screen methodOrdered By: Keven Florentino on 38-76-4703Znenfyxnfunf Screen Ql (U) NegativeNegativeTrihealth Good Samaritan HospitalBasophils Auto (Bld) [#/Vol] Ordered By: Keven Florentino on 68-07-8566Svszdovrn (Bld) [#/Vol]0.0 10*3/uL0.0-0.2 [facility] HospitalBasophils/100 WBC Auto (Bld)Ordered By: Keven Florentino on [id number]/100 WBC (Bld)0.7 %.[facility] HospitalBenzodiazepines Screen Ql (U)Ordered By: Keven Florentino on 10-28-2022 Benzodiazepines Ql (U)NegativeNegMorrow County Hospital Benzoylecgonine [Presence] in Urine by Screen methodOrdered By: Keven Florentino on [id number] Screen Ql (U)NegativeNegMorrow County HospitalBilirubin Test strip Ql (U)Ordered By: Keven Florentino on 10-28-2022 Bilirubin Ql (U)NegativeNegMorrow County HospitalBilirubin.total [Mass/volume] in Serum or PlasmaOrdered By: Keven Florentino on [id number] [Mass/Vol]0.5 mg/dL0.3-1.0[facility] HospitalCalcium [Mass/volume] in Serum or PlasmaOrdered By: Keven Florentino on [id number] [Mass/Vol]8.5 mg/dL8.6-10.3FParkwood HospitalCannabinoids [Presence] in Urine by Screen methodOrdered By: Keven Florentino on [id number] Screen Ql (U) NegativeNegMorrow County HospitalComment on above:These are unconfirmed results and should not be used for legal purposes. Drug Cut-Off Concentration: AMPH 1000 ng/mL BOO 200 ng/mL HELGA 200 ng/mL COCM 300 ng/mL OP 300 ng/mL PCP 25 ng/mL THC 20 ng/mLCarbon dioxide, total [Moles/volume] in Serum or PlasmaOrdered By: Keven Florentino on [id number] [Moles/Vol]24.6 mmol/L 21.0-31.0[facility] HospitalChloride [Moles/volume] in Serum or PlasmaOrdered By: Keven Florentino on 74-67-7170Zmcgmpxw [Moles/Vol]109 mmol/L98-107 [facility] HospitalColor Auto (U)Ordered By: Keven Florentino on 43-66-9539Vswuq (U)Dark yellowYellowTrihealth Good Samaritan HospitalCreatinine [Mass/volume] in Serum or PlasmaOrdered By: Keven Florentino on 09-31-4188Axmnihhjee [Mass/Vol]0.70 mg/dL0.60-1.20[facility] HospitalEosinophils Auto (Bld) [#/Vol]Ordered By: Keven Florentino on 28-95-5815Fpkjgmnuavi (Bld) [#/Vol]0.2 10*3/uL0.0-0.45[facility] HospitalEosinophils/100 WBC Auto (Bld) Ordered By: Keven Florentino on 05-46-8765Oyhnwykkssn/100 WBC (Bld)3.9 %.[facility] HospitalErythrocyte distribution width Auto (RBC) [Ratio]Ordered By: Keven Florentino on 31-24-8329Wpiracjbapi distribution width (RBC) [Ratio]13.0 % 11.9-15.3FParkwood HospitalEthanol [Mass/volume] in Serum or PlasmaOrdered By: Keven Florentino on 76-00-2544Rifprom [Mass/Vol]mg/dLTrihealth Good Samaritan HospitalEthanol [Mass/Vol]TNPTrihealth Good Samaritan Hospital Comment on above:Test not performedGlobulin Calc (S) [Mass/Vol]Ordered By: Keven Florentino on 90-99-2006Mxoqigzn (S) [Mass/Vol]2.4 g/dLTrihealth Good Samaritan HospitalGlucose [Mass/volume] in Serum or PlasmaOrdered By: Keven Florentino on 83-78-3568Eigjart [Mass/Vol]91 mg/qK70-597GnzdletstTrihealth Good Samaritan Hospital Comment on above:ADA recommended reference rangeRandom Glucose Reference Range is dependent on time and content of last meal. Glucose of more than 200 mg/dL in a nonstressed, ambulatory subject supports the diagnosisof Diabetes Mellitus. HCG ( test) IA.rapid Ql (U)Ordered By: Keven Florentino on 10-23-6063KNE ( test) Ql (U)NegativeTrihealth Good Samaritan HospitalHematocrit Auto (Bld) [Volume fraction]Ordered By: Keven Florentino on 54-06-0160Iafeweicfm (Bld) [Volume fraction]36.0 %34.0-46.4FParkwood HospitalHemoglobin [Mass/volume] in BloodOrdered By: Keven Florentino on 45-20-2603Poeokoeukt (Bld) [Mass/Vol]12.1 g/dL11.8-15.4FParkwood HospitalKetones Auto test strip (U) [Mass/Vol]Ordered By: Keven Florentino on 62-24-4010Xtzumoy (U) [Mass/Vol] TraceNegativeTrihealth Good Samaritan HospitalLaboratory - UrinalysisOrdered By: Keven Florentino on 48-67-7020Tanmckx casts LM Ql (Urine sed)0-8 [LPF]0-8[facility] HospitalLeukocytes [#/volume] corrected for nucleated erythrocytes in Blood by Automated counOrdered By: Keven Florentino on 46-32-0584JIN corrected for nucl RBC Auto (Bld) [#/Vol]6.1 10*3/uL3.8-11.6FParkwood HospitalLymphocytes Auto (Bld) [#/Vol]Ordered By: Keven Florentino on 33-40-9129Bdpmcfifjfl (Bld) [#/Vol]1.2 10*3/uL1.00-4.8[facility] HospitalLymphocytes/100 WBC Auto (Bld)Ordered By: Keevn Florentino on 10-28-2022 Lymphocytes/100 WBC (Bld)19.9 %.[facility]H Auto (RBC) [Entitic mass]Ordered By: Keven Florentino on 81-17-5450BCR (RBC) [Entitic mass]32.4 pg24.7-34.3FMercy HospitalHC Auto (RBC) [Mass/Vol]Ordered By: Keven Florentino on 44-72-0110OSRD (RBC) [Mass/Vol]33.7 g/dL32.0-35.0[facility] HospitalMCV Auto (RBC) [Entitic vol]Ordered By: Keven Florentino on 49-50-0575GSR (RBC) [Entitic vol]96.1 gY42-808SadnoszvtTrihealth Good Samaritan Hospital Monocyte distribution width [Entitic volume] in Blood by AutomatedOrdered By: Keven Florentino on 41-59-2561Yhuhkykv distribution width Auto (Bld) [Entitic vol] 17.88 %0.00-20.00[facility] HospitalMonocytes Auto (Bld) [#/Vol] Ordered By: Keven Florentino on 81-72-2831Usapgtwos (Bld) [#/Vol]0.4 10*3/uL0.0-0.8 [facility] HospitalMonocytes/100 WBC Auto (Bld)Ordered By: Keven Florentino on 85-68-0077Iqaixvnhu/100 WBC (Bld)6.5 %.[facility] HospitalNeutrophils Auto (Bld) [#/Vol]Ordered By: Keven Florentino on 10-28-2022 Neutrophils (Bld) [#/Vol]4.2 10*3/uL1.8-7.7FParkwood Hospital Neutrophils/100 WBC Auto (Bld)Ordered By: Keven Florentino on 10-28-2022 Neutrophils/100 WBC (Bld)69.0 %.[facility] HospitalNitrite Test strip Ql (U)Ordered By: Keven Florentino on 97-04-2161Cfxfbcu Ql (U)NegativeNegative [facility] HospitalNo Panel InformationOrdered By: Keven Florentino on 04-17-6652Kgheyfbki GFR (CKD-EPI)> 60.0 mL/MinTrihealth Good Samaritan Hospital Pharmacy Creatinine Clearance (Agag858.41[facility] Nucleated erythrocytes [Presence] in Blood by Automated countOrdered By: Keven Florentino on 18-05-2355Ahjmqutzj RBC Auto Ql (Bld)0.2 /100{WBC}0-0.5FParkwood HospitalOpiates [Presence] in Urine by Screen methodOrdered By: Keven Florentino on 85-11-4391Dyrmmeo Screen Ql (U)NegativeNegMorrow County HospitalPhencyclidine Screen Ql (U)Ordered By: Keven Florentino on 10-28-2022 Phencyclidine Ql (U)NegativeNegativeTrihealth Good Samaritan HospitalPlatelet mean volume Auto (Bld) [Entitic vol]Ordered By: Keven Florentino on 10-28-2022 Platelet mean volume (Bld) [Entitic vol]7.5 fL6.3-10.7FParkwood HospitalPlatelets Auto (Bld) [#/Vol]Ordered By: Keven Florentino on 73-85-6311Bqrucjyis (Bld) [#/Vol]177 10*3/jI887-327CdpmhiidhTrihealth Good Samaritan HospitalPotassium [Moles/volume] in Serum or PlasmaOrdered By: Keven Florentino on 71-23-0948Lqfhxadbt [Moles/Vol]3.8 mmol/L3.5-5.1FParkwood HospitalProtein Auto test strip (U) [Mass/Vol]Ordered By: Keven Florentino on 97-14-4558Cfsuleh (U) [Mass/Vol] NegativeNegativeTrihealth Good Samaritan HospitalProtein [Mass/volume] in Serum or PlasmaOrdered By: Keven Florentino on 25-25-2738Jhksfhb [Mass/Vol]6.1 g/dL6.4-8.9 [facility] HospitalRBC Auto (Bld) [#/Vol]Ordered By: Keven Florentino on 81-65-8826RHV (Bld) [#/Vol]3.74 10*6/uL3.60-5.00[facility] Centererum or plasma albumin/globulin mass ratioOrdered By: Keven Florentino on 32-31-1376Qtpotlp/Globulin [Mass ratio]1.5 {ratio}[facility] Centererum or plasma anion gap determinationOrdered By: Keven Florentino on 14-09-0443Oqsaw gap [Moles/Vol]11.2 mmol/L6.0-15.0[facility] Centerodium [Moles/volume] in Serum or PlasmaOrdered By: Keven Florentino on 13-13-1320Ahxptb [Moles/Vol]141 mmol/A056-234IfvdoywtzTrihealth Good Samaritan Hospital Specific gravity Auto test strip (U) [Rel density]Ordered By: Keven Florentino on 28-89-4562Jucbtpya gravity (U) [Rel density]1.0241.001-1.030[facility] Centerquamous epithelial cells detection in urine sediment by light microscopyOrdered By: Keven Florentino on 90-72-9219Stqbfuhyxx cells.squamous LM Ql (Urine sed)5-9 [HPF]0-2FParkwood HospitalUrea nitrogen [Mass/volume] in Serum or PlasmaOrdered By: Keven Florentino on 39-80-7740Prtg nitrogen [Mass/Vol]15 mg/dL7-25[facility] HospitalUrine bacteria detection by automated methodOrdered By: Keven Florentino on 68-21-1820Gjyddzyx Auto Ql (U)None seenNone SeenTrihealth Good Samaritan HospitalUrine clarity by refractometry automatedOrdered By: Keven Florentino on 71-70-5175Binvprp Refractometry automated (U)ClearCleMercy HospitalUrine culture routineOrdered By: Keven Florentino on 17-95-5127Jwjqgkhz identified Cx Nom (U)2 DaysTrihealth Good Samaritan HospitalUrine glucose measurement by automated test strip (mass/volume)Ordered By: Keven Florentino on 34-15-0822Hxlbkhy Auto test strip (U) [Mass/Vol]Normal mg/dLNoKettering Health SpringfieldUrine hemoglobin detection by automated test stripOrdered By: Keven Florentino on 96-34-4463Nlnaiupaar Auto test strip Ql (U)NegativeNegativeTrihealth Good Samaritan HospitalUrine leukocyte esterase detection by automated test stripOrdered By: Keven Florentino on 60-86-4552Rgaaxiyme esterase Auto test strip Ql (U)3+Negative [facility] HospitalUrobilinogen Auto test strip (U) [Mass/Vol] Ordered By: Keven Florentino on 58-11-3958Xprxqbqosvve (U) [Mass/Vol]mg/dLNoal [facility] HospitalWBC Auto (Bld) [#/Vol]Ordered By: Keven Florentino on 52-71-7872MEH (Bld) [#/Vol]6.1 10*3/uL3.8-11.6FParkwood HospitalpH Auto test strip (U)Ordered By: Keven Florentino on 85-37-5657iI (U)6.0 [pH] 5.0-9.0[facility] HospitalAlanine aminotransferase [Enzymatic activity/volume] in Serum or PlasmaOrdered By: Chelsie Cortez on 45-45-7573ZSG [Catalytic activity/Vol]20 U/L7-52[facility] HospitalAlbumin [Mass/volume] in Serum or Plasma by Bromocresol green (BCG) dye binding metho Ordered By: Chelsie Cortez on 21-77-9730Kndbhze BCG dye [Mass/Vol]3.9 g/dL 3.5-5.7FParkwood HospitalAlkaline phosphatase [Enzymatic activity/volume] in Serum or PlasmaOrdered By: Chelsie Cortez on 39-79-4380NJS [Catalytic activity/Vol]99 U/L70-039UbqsnxuywTrihealth Good Samaritan HospitalAspartate aminotransferase [Enzymatic activity/volume] in Serum or PlasmaOrdered By: Chelsie Cortez on 35-72-6613JKX [Catalytic activity/Vol]20 U/K05-16IfqvhhjtkTrihealth Good Samaritan HospitalAutomated erythrocytes count in urine sediment (number/area)Ordered By: Chelsie Cortez on 23-66-9578CQG Auto (Urine sed) [#/Area]0-1 [HPF]0-4FParkwood HospitalAutomated leukocytes count in urine sediment (number/area)Ordered By: Chelsie Cortez on 95-03-7479QKR Auto (Urine sed) [#/Area]20-49 [HPF]0-4FParkwood HospitalBasophils Auto (Bld) [#/Vol]Ordered By: Chelsie Cortez on 64-94-9839Qapwcxsur (Bld) [#/Vol]0.0 10*3/uL0.0-0.2FParkwood HospitalBasophils/100 WBC Auto (Bld)Ordered By: Chelsie Cortez on 50-60-7862Rilmeneyk/100 WBC (Bld)0.8 %. [facility] HospitalBilirubin Test strip Ql (U)Ordered By: Chelsie Cortez on 45-88-2800Unvmpgsoy Ql (U)NegativeNegativeTrihealth Good Samaritan HospitalBilirubin.direct [Mass/volume] in Serum or PlasmaOrdered By: Chelsie Cortez on 92-99-0555Vqyakjrqa.direct [Mass/Vol]0.10 mg/dL0.03-0.18FParkwood HospitalBilirubin.total [Mass/volume] in Serum or PlasmaOrdered By: Chelsie Cortez on 42-21-1188Fmturubsl [Mass/Vol]0.6 mg/dL0.3-1.0[facility] HospitalCalcium [Mass/volume] in Serum or PlasmaOrdered By: Chelsie Cortez on 52-64-7351Hsjqqda [Mass/Vol]8.8 mg/dL8.6-10.3FParkwood HospitalCarbon dioxide, total [Moles/volume] in Serum or Plasma Ordered By: Chelsie Cortez on 81-76-6830DT4 [Moles/Vol]26.5 mmol/L21.0-31.0 [facility] HospitalChloride [Moles/volume] in Serum or Plasma Ordered By: Chelsie Cortez on 24-90-4729Ywzjinai [Moles/Vol]107 mmol/L98-107 [facility] HospitalColor Auto (U)Ordered By: Chelsie Crotez on 40-00-4197Jauae (U)YellowYellowTrihealth Good Samaritan HospitalCreatinine [Mass/volume] in Serum or PlasmaOrdered By: Chelsie Cortez on 10-18-2022 Creatinine [Mass/Vol]0.83 mg/dL0.60-1.20[facility] Eosinophils Auto (Bld) [#/Vol]Ordered By: Chelsie Cortez on 10-18-2022 Eosinophils (Bld) [#/Vol]0.1 10*3/uL0.0-0.45[facility] Eosinophils/100 WBC Auto (Bld)Ordered By: Chelsie Cortez on 10-18-2022 Eosinophils/100 WBC (Bld)1.2 %.[facility] HospitalErythrocyte distribution width Auto (RBC) [Ratio]Ordered By: Chelsie Cortez on 10-18-2022 Erythrocyte distribution width (RBC) [Ratio]13.1 %11.9-15.3FParkwood HospitalGlobulin Calc (S) [Mass/Vol]Ordered By: Chelsie Cortez on 21-76-2300Wirqrgsb (S) [Mass/Vol]2.8 g/dLTrihealth Good Samaritan Hospital Glucose [Mass/volume] in Serum or PlasmaOrdered By: Chelsie Cortez on 73-47-6360Rynlarg [Mass/Vol]101 mg/rT61-947YjzrovznbTrihealth Good Samaritan Hospital Comment on above:ADA recommended reference rangeRandom Glucose Reference Range is dependent on time and content of last meal. Glucose of more than 200 mg/dL in a nonstressed, ambulatory subject supports the diagnosisof Diabetes Mellitus. HCG ( test) IA.rapid Ql (U)Ordered By: Chelsie Cortez on 08-92-5722MLB ( test) Ql (U)NegativeTrihealth Good Samaritan HospitalHematocrit Auto (Bld) [Volume fraction]Ordered By: Chelsie Cortez on 33-88-1924Hlvlvedqpj (Bld) [Volume fraction]35.1 %34.0-46.4FParkwood Hospital Hemoglobin [Mass/volume] in BloodOrdered By: Chelsie Cortez on 10-18-2022 Hemoglobin (Bld) [Mass/Vol]12.0 g/dL11.8-15.4FParkwood Hospital Ketones Auto test strip (U) [Mass/Vol]Ordered By: Chelsie Cortez on 10-18-2022 Ketones (U) [Mass/Vol]NegativeNegativeTrihealth Good Samaritan Hospital Laboratory - UrinalysisOrdered By: Chelsie Cortez on 54-71-9385Iikyscr casts LM Ql (Urine sed)0-8 [LPF]0-8[facility] HospitalLeukocytes [#/volume] corrected for nucleated erythrocytes in Blood by Automated coun Ordered By: Chelsie Cortez on 96-88-2698NWS corrected for nucl RBC Auto (Bld) [#/Vol]6.3 10*3/uL3.8-11.6FParkwood HospitalLipase [Enzymatic activity/volume] in Serum or PlasmaOrdered By: Chelsie Cortez on 10-18-2022 Lipase [Catalytic activity/Vol]42.0 U/L11.0-82.0[facility] HospitalLymphocytes Auto (Bld) [#/Vol]Ordered By: Chelsie Cortez on 10-18-2022 Lymphocytes (Bld) [#/Vol]1.4 10*3/uL1.00-4.8[facility] Lymphocytes/100 WBC Auto (Bld)Ordered By: Chelsie Cortez on 10-18-2022 Lymphocytes/100 WBC (Bld)22.0 %.[facility] SystemH Auto (RBC) [Entitic mass]Ordered By: Chelsie Cortez on 92-85-2404JDN (RBC) [Entitic mass] 33.0 pg24.7-34.3FParkwood HospitalMCHC Auto (RBC) [Mass/Vol] Ordered By: Chelsie Cortez on 21-46-1136JVUS (RBC) [Mass/Vol]34.2 g/dL32.0-35.0 [facility] HospitalMCV Auto (RBC) [Entitic vol]Ordered By: Chelsie Cortez on 21-95-8310IGM (RBC) [Entitic vol]96.5 fC04-697AuajmwclbTrihealth Good Samaritan HospitalMagnesium [Mass/volume] in Serum or PlasmaOrdered By: Chelsie Cortez on 98-14-7237Lzejkohyj [Mass/Vol]2.1 mg/dL1.9-2.7FParkwood HospitalMonocytes Auto (Bld) [#/Vol]Ordered By: Chelsie Cortez on 28-94-7175Lqukfvluq (Bld) [#/Vol]0.5 10*3/uL0.0-0.8[facility] HospitalMonocytes/100 WBC Auto (Bld)Ordered By: Chelsie Cortez on 10-18-2022 Monocytes/100 WBC (Bld)7.2 %.[facility] HospitalNeutrophils Auto (Bld) [#/Vol]Ordered By: Chelsie Cortez on 34-26-2973Zbfmquezolp (Bld) [#/Vol] 4.3 10*3/uL1.8-7.7FParkwood HospitalNeutrophils/100 WBC Auto (Bld)Ordered By: Chelsie Cortez on 65-19-9485Voqehoxkahe/100 WBC (Bld)68.8 %. [facility] HospitalNitrite Test strip Ql (U)Ordered By: Chelsie Cortez on 19-98-6857Fiwossn Ql (U)NegativeNegativeTrihealth Good Samaritan HospitalNo Panel InformationOrdered By: Chelsie Cortez on 60-66-1801Thxzquxsr GFR (CKD-EPI)> 60.0 mL/MinTrihealth Good Samaritan HospitalPharmacy Creatinine Clearance (Njvp693.47[facility] HospitalNucleated erythrocytes [Presence] in Blood by Automated countOrdered By: Chelsie Cortez on 10-18-2022 Nucleated RBC Auto Ql (Bld)0.1 /100{WBC}0-0.5FParkwood Hospital Platelet mean volume Auto (Bld) [Entitic vol]Ordered By: Chelsie Cortez on 18-19-1038Ctstlbjr mean volume (Bld) [Entitic vol]7.6 fL6.3-10.7FParkwood HospitalPlatelets Auto (Bld) [#/Vol]Ordered By: Chelsie Cortez on 07-85-9406Jqboeppvm (Bld) [#/Vol]170 10*3/wZ108-775JsqxjkiuaTrihealth Good Samaritan HospitalPotassium [Moles/volume] in Serum or PlasmaOrdered By: Chelsie Cortez on 29-97-7708Zdmgtrrmc [Moles/Vol]4.2 mmol/L3.5-5.1FParkwood HospitalProtein Auto test strip (U) [Mass/Vol]Ordered By: Chelsie Cortez on 38-60-7291Yrwrfcj (U) [Mass/Vol]NegativeNegativeTrihealth Good Samaritan HospitalProtein [Mass/volume] in Serum or PlasmaOrdered By: Chelsie Cortez on 36-28-2150Pyrvsrb [Mass/Vol]6.7 g/dL6.4-8.9[facility] HospitalRBC Auto (Bld) [#/Vol]Ordered By: Chelsie Cortez on 67-53-2766NNL (Bld) [#/Vol]3.64 10*6/uL3.60-5.00[facility] Centererum or plasma albumin/globulin mass ratioOrdered By: Chelsie Cortez on 10-18-2022 Albumin/Globulin [Mass ratio]1.4 {ratio}[facility] Centererum or plasma anion gap determinationOrdered By: Chelsie Cortez on 76-40-8188Ceeic gap [Moles/Vol]9.7 mmol/L6.0-15.0[facility] Centererum or plasma non-glucuronidated bilirubin measurement (mass/volume)Ordered By: Chelsie Cortez on 47-10-7490Ltdudieki.indirect [Mass/Vol]0.5 mg/dLAshtabula County Medical Centerodium [Moles/volume] in Serum or PlasmaOrdered By: Chelsie Cortez on 46-20-1671Wnvzdw [Moles/Vol]139 mmol/Z965-705CwcbfxhauAshtabula County Medical Centerpecific gravity Auto test strip (U) [Rel density]Ordered By: Chelsie Cortez on 97-96-8936Tdtphlyq gravity (U) [Rel density]1.011 1.001-1.030[facility] Centerquamous epithelial cells detection in urine sediment by light microscopyOrdered By: Chelsie Cortez on 10-18-2022 Epithelial cells.squamous LM Ql (Urine sed)3-4 [HPF]0-2FParkwood HospitalUrea nitrogen [Mass/volume] in Serum or PlasmaOrdered By: Chelsie Cortez on 47-22-7489Wdld nitrogen [Mass/Vol]9 mg/dL7-25[facility] HospitalUrine bacteria detection by automated methodOrdered By: Chelsie Cortez 54-50-8051Ryneoldl Auto Ql (U)None seenNone SeenTrihealth Good Samaritan HospitalUrine clarity by refractometry automatedOrdered By: Chelsie Cortez 35-12-3232Yaifalx Refractometry automated (U)ClearClearFParkwood HospitalUrine culture routineOrdered By: Chelsie Cortez on 50-57-7203Rfpalqji identified Cx Nom (U)2 DaysTrihealth Good Samaritan Hospital Urine glucose measurement by automated test strip (mass/volume)Ordered By: Chelsie Cortez on 27-08-3879Xzuxtey Auto test strip (U) [Mass/Vol]Normal mg/dL NormalTrihealth Good Samaritan HospitalUrine hemoglobin detection by automated test stripOrdered By: Chelsie Cortez on 24-25-1295Axkqypbeps Auto test strip Ql (U)NegativeNegativeTrihealth Good Samaritan HospitalUrine leukocyte esterase detection by automated test stripOrdered By: Chelsiemariah Cortez on 10-18-2022 Leukocyte esterase Auto test strip Ql (U)3+NegativeTrihealth Good Samaritan HospitalUrobilinogen Auto test strip (U) [Mass/Vol]Ordered By: Chelsie Cortez on 94-03-1339Isaakptzndqs (U) [Mass/Vol]Normal mg/dLNormalTrihealth Good Samaritan HospitalWBC Auto (Bld) [#/Vol]Ordered By: Chelsie Cortez on 12-67-5714HBB (Bld) [#/Vol]6.3 10*3/uL3.8-11.6FParkwood HospitalpH Auto test strip (U)Ordered By: Chelsie Cortez on 13-76-9310hL (U)5.5 [pH]5.0-9.0[facility] HospitalAMYLASEon 84-21-3874Fkhxegc [Catalytic activity/Vol]42 U/BZrjjqk32-938Aox [facility] CenterComment on above:Performed By: #### CMP, LIPA, GRETTA #### [facility] [address] [address] [address] Kinjal KrishnanC AUTO DIFFon 12-87-9163YJCF #0.0 103/ulNormal0.0-0.1The [facility] CenterComment on above:Performed By: #### CBC #### [facility] [address] [address] [address] Kinjal Cruzsophils/100 WBC (Bld)0.6 %Normal0.2-2.0The [facility] Comment on above:Performed By: #### CBC #### [facility] [address] [address] [address] Kinjal Ernst #0.1 103/ulNormal0.0-0.7The [facility] CenterComment on above: Performed By: #### CBC #### [facility] [address] [address] [address] Kinjal Coronadoosinophils/100 WBC (Bld)2.1 %Normal0.9-7.0The [facility] Comment on above:Performed By: #### CBC #### [facility] [address] [place] [address] Dr. Kinjal Coronadorythrocyte distribution width (RBC) [Ratio]12.4 %Wyzmef85.0-15.0 The [facility] CenterComment on above:Performed By: #### CBC #### [facility] [address] [place] [address] Dr. Kinjal RiversHematocrit (Bld) [Volume fraction]38.3 %Fhofwf30.0-48.0The [facility] CenterComment on above:Performed By: #### CBC #### [facility] [address] [place] [address] Dr. Kinjal RiversHemoglobin (Bld) [Mass/Vol]12.8 g/eTUvihgu24.0-16.0Kettering HealthComment on above:Performed By: #### CBC #### [facility] [address] [place] [address] Dr. Kinjal Dilalo #0.02 10e3/ulNormal0.00-0.03The [facility] CenterComment on above:Performed By: #### CBC #### [facility] [address] [place] [address] Dr. Kinjal Diallo %0.3 %Normal0.0-0.5The [facility] CenterComment on above: Performed By: #### CBC #### [facility] [address] [place] [address] Dr. Kinjal BanuelosH #1.5 103/ulNormal1.2-3.8The [facility] CenterComment on above:Performed By: #### CBC #### [facility] [address] [place] [address] Dr. Kinjal Banueloshocytes/100 WBC (Bld)24.1 %Aaeyso11.5-60.0K[facility]tering HealthComment on above:Performed By: #### CBC #### [facility] [address] [place] [address] Dr. Kinjal AnnaUAL DIFF REQNONormalThe [facility] CenterComment on above: Performed By: #### CBC #### [facility] [address] [place] [address] Dr. Kinjal Ohara (RBC) [Entitic mass]32.7 jnMfhpdb38.7-34.0The [facility] CenterComment on above:Performed By: #### CBC #### [facility] [address] [place] [address] Dr. Kinjal Ohara (RBC) [Mass/Vol]33.4 g/jXHdknmb20.9-35.2The [facility] HospitalComment on above:Performed By: #### CBC #### [facility] [address] [place] [address] Dr. Kinjal Ohara (RBC) [Entitic vol]97.7 hGUkktdr37.0-99.0The [facility] CenterComment on above:Performed By: #### CBC #### [facility] [address] [place] [address] Dr. Kinjal Duran #0.3 103/ulNormal0.3-0.8The [facility] CenterComment on above:Performed By: #### CBC #### [facility] [address] [place] [address] Dr. Kinjal Nevarezocytes/100 WBC (Bld)5.5 %Normal1.7-12.0The [facility] Comment on above:Performed By: #### CBC #### [facility] [address] [place] [address] Dr. Kinjal Cr #4.2 103/ulNormal1.4-6.5The [facility] CenterComment on above:Performed By: #### CBC #### [facility] [address] [place] [address] Dr. Kinjal Spencerutrophils/100 WBC (Bld)67.4 %Vafvpb97.0-75.0The [facility] CenterComment on above:Performed By: #### CBC #### [facility] [address] [place] [address] Dr. Kinjal Lopezlet mean volume (Bld) [Entitic vol]9.2 fLCritically low 9.5-13.5The [facility] CenterComment on above:Performed By: #### CBC #### [facility] [address] [place] [address] Dr. Kinjal RiversPLT184 103/qxYbybdq941-487Yjw [facility] CenterComment on above: Performed By: #### CBC #### [facility] [address] [place] [address] Dr. Kinjal RiversRBC3.92 106/ulCritically low4.20-5.40The [facility] CenterComment on above:Performed By: #### CBC #### [facility] [address] [place] [address] Dr. Kinjal RiversWBC6.2 103/ulNormal4.0-11.0The [facility] CenterComment on above: Performed By: #### CBC #### [facility] [address] [place] [address] Dr. Kinjal Maza URINEon 64-35-3642NFPGEKN URINECulture Observations: LIGHT GROWTH OF MIXED GENITAL YOGESH. NO POTENTIAL PATHOGENS SEEN.NormalKettering HealthComment on above:Performed By: #### URCX #### [facility] [address] [place] [address] Dr. Kinjal Ring URINE PROFILEon 82-88-4576Yhyahgtbj Ql (U)NegativeNormal NEGATIVEThe [facility] CenterComment on above:Performed By: #### CHIQUIS VILLASEÑOR #### [facility] [address] [place] [address] Dr. Kinjal Kapoor (U)SL CLOUDYAbnormalCLEARThe [facility] CenterComment on above:Performed By: #### CHIQUIS VILLASEÑOR #### [facility] [address] [place] [address] Dr. Kinjal Licea (U)LT. YELLOWNormalYELLOWThe [facility] CenterComment on above:Performed By: #### CHIQUIS VILLASEÑOR #### [facility] [address] [place] [address] Dr. Kinjal Alcaraz micrscopic examination will be performed if indicated. NormalKettering HealthComment on above:Performed By: #### MALIA VILLASEÑORR #### [facility] [address] [address] [address] Kinjal RiversGlucose Ql (U)NegativeNormalNEGATIVEKettering HealthComment on above:Performed By: #### KASI ERUR #### [facility] [address] [address] [address] Kinjal RiversHemoglobin Ql (U)NegativeNormalNEGCleveland Clinic Foundation Comment on above:Performed By: #### MALIA VILLASEÑORR #### [facility] [address] [place] [address] Dr. Kinjal RiversKetones Ql (U)NegativeNormalNEGATIVEKettering HealthComment on above:Performed By: #### MALIA VILLASEÑORR #### [facility] [address] [place] [address] Dr. Kinjal RiversLEUKOCYTESTRACEAbnormalNEGATIVEKettering HealthComment on above:Performed By: #### MALIA VILLASEÑORR #### [facility] [address] [place] [address] Dr. Kinjal Feldmantrite Ql (U)NegativeNormalNEGATIVEKettering HealthComment on above:Performed By: #### KASI ERUR #### [facility] [address] [address] [address] Kinjal RiverspH (U)5.0 [pH]Normal5-9Kettering HealthComment on above: Performed By: #### MALIA VILLASEÑORR #### [facility] [address] [address] [address] Kinjal RiversSPEC GRAVITY1.397Cmyuwyph8.005-<=1.025[facility] Comment on above:Performed By: #### KASI ERUR #### [facility] [address] [address] [address] Kinjal RiversUA PROTEINNegativeNormalNEGATIVE/ TRACEThe [facility] Comment on above:Performed By: #### CHIQUIS VILLASEÑOR #### [facility] [address] [place] [address] Dr. Kinjal SANON INDINDICATEDNormalThe [facility] CenterComment on above: Performed By: #### MALIA VILLASEÑORR #### [facility] [address] [place] [address] Dr. Kinjal Quigleybilino Qn (U)1.0 {José'U}/dLNormal0.2 - 1.0The [facility] CenterComment on above:Performed By: #### CHIQUIS VILLASEÑOR #### [facility] [address] [place] [address] Dr. Kinjal RiversLIPASEon 19-49-9940Mvfmqm [Catalytic activity/Vol]133.0 U/LNormal 73.0-393.0The [facility] CenterComment on above:Performed By: #### CMP, LIPA, GRETTA #### [facility] [address] [place] [address] Dr. Kinjal RiversPROF 14(COMP METB)on 11-85-8403Pkbpqzj [Mass/Vol]3.7 g/dLNormal 3.4-5.0The [facility] CenterComment on above:Performed By: #### CMP, LIPA, GRETTA #### [facility] [address] [place] [address] Dr. Kinjal RiversAlbumin/Globulin [Mass ratio]1.0 {ratio}NormalThe [facility] CenterComment on above:Performed By: #### CMP, LIPA, GRETTA #### [facility] [address] [place] [address] Dr. Kinjal Garnett [Catalytic activity/Vol]101 U/UPqvzky70-839Bvq [facility] CenterComment on above:Performed By: #### CMP, LIPA, GRETTA #### [facility] [address] [place] [address] Dr. Kinjal Pepe [Catalytic activity/Vol]27 U/UGvxcxc20-51Lme [facility] CenterComment on above:Performed By: #### CMP, LIPA, GRETTA #### [facility] [address] [address] [address] Kinjal RiversAnion gap [Moles/Vol]13.4 mmol/LNormalThe [facility] Comment on above:Performed By: #### CMP, LIPA, GRETTA #### [facility] [address] [address] [address] Kinjal RiversAST [Catalytic activity/Vol]23 U/KDjfrpz12-02Uzi [facility] CenterComment on above:Performed By: #### CMP, LIPA, GRETTA #### [facility] [address] [address] [address] Kinjal RiversBilirubin [Mass/Vol]0.6 mg/dLNormal0.2-1.0[facility] Comment on above:Performed By: #### CMP, LIPA, GRETTA #### [facility] [address] [place] [address] Dr. Kinjal RiversCalcium [Mass/Vol]9.1 mg/dLNormal8.5-10.1[facility] Comment on above:Performed By: #### CMP, LIPA, GRETTA #### [facility] [address] [place] [address] Dr. Kinjal RiversChloride [Moles/Vol]105 mmol/NYdnqwn88-570XyxKettering Health Comment on above:Performed By: #### CMP, LIPA, GRETTA #### [facility] [address] [place] [address] Dr. Kinjal RiversCO2 [Moles/Vol]25.3 mmol/QUoplje54.0-32.0The [facility] Comment on above:Performed By: #### CMP, LIPA, GRETTA #### [facility] [address] [place] [address] Dr. Kinjal RiversCreatinine [Mass/Vol]0.96 mg/dLNormal0.55-1.02The [facility] CenterComment on above:Performed By: #### CMP, LIPA, GRETTA #### [facility] [address] [address] [address] Kinjal CoronadoGFR-AF SUDANESE>60Normal>=60The [facility] CenterComment on above:Performed By: #### NATHALIE LIPHarpreet, GRETTA #### [facility] [address] [address] [address] Kinjal CoronadoGFR-NON AF SUDANESE>60Normal>=60The [facility] CenterComment on above:Performed By: #### CMP LIPA, GRETTA #### [facility] [address] [place] [address] Dr. Kinjal RiversGlobulin (S) [Mass/Vol]3.6 g/dLNormalThe [facility] CenterComment on above:Performed By: #### NATHALIE LIPA, GRETTA #### [facility] [address] [place] [address] Dr. Kinjal RiversGlucose [Mass/Vol]93 mg/uUKwgphn38-158JgrKettering Health Comment on above:Performed By: #### NATHALIE LIPA, GRETTA #### [facility] [address] [place] [address] Dr. Kinjal RiversPotassium [Moles/Vol]3.7 mmol/LNormal3.5-5.1[facility] Comment on above:Performed By: #### NATHALIE LIPA, GRETTA #### [facility] [address] [place] [address] Dr. Kinjal RiversProtein [Mass/Vol]7.3 g/dLNormal6.4-8.2The [facility] Comment on above:Performed By: #### CMP, LIPA, GRETTA #### [facility] [address] [place] [address] Dr. Kinjal RiversSodium [Moles/Vol]140 mmol/AIjsfha962-044PiqKettering Health Comment on above:Performed By: #### CMP LIPA, GRETTA #### [facility] [address] [place] [address] Dr. Kinjal RiversUrea nitrogen [Mass/Vol]9.0 mg/dLNormal7.0-18.0The [facility] CenterComment on above:Performed By: #### CMP, LIPA, GRETTA #### [facility] [address] [address] [address] Kinjal RiversUrea nitrogen/Creatinine [Mass ratio]9.4 mg/mgNoClinton Memorial HospitalCompromedica [facility] on above:Performed By: #### CMP, LIPA, GRETTA #### [facility] [address] [address] [address] Kinjal Brown MICROSCOPIC ONLYon 08-07-5390NYBLHCRYLKRWDRbggxgvmSTQW SEEN [facility]Comp[facility] on above:Performed By: #### UMKYLIE, ERUR #### [facility] [address] [address] [address] Kinjal Tsai identified Cx Nom (U)INDICATEDChildren's Hospital for RehabilitationCompromedica char[facility] on above:Performed By: #### KASI, ERUR #### [facility] [address] [address] [address] Kinjal Hernandez SEENNormalNONE SEENKettering HealthCompromedica char[facility] on above:Performed By: #### KASI, ERUR #### [facility] [address] [address] [address] Kinjal Merchantystals LM Nom (Urine sed)NONE SEENNormalNONE SEENKettering HealthCompromedica char[facility] on above:Performed By: #### KASI, ERUR #### [facility] [address] [address] [address] Layton ChangEpithelial cells LM Ql (Urine sed)FEWAbnormalNONE SEEN /RAREThe [facility] CenterCompromedica [facility] on above:Performed By: #### UMICRO, ERUR #### [facility] [address] [address] [address] Kinjal GarciaCOUSNONE SEENNormalNONE [facility] on above:Performed By: #### UMICRO, ERUR #### [facility] [address] [address] [address] Kinjal CrawfordONE SEENAbnormal0-2The Petey HospitalComment on above: Performed By: #### KASI ERUR #### [facility] [address] [place], [place] [address] Dr. Kinjal RiversWBC2-5AbnormalNONE SEENThe [facility] CenterComment on above: Performed By: #### KASI, ERUR #### [facility] [address] [place], [place] [address] Dr. Kinjal RiversActivated partial thromboplastin time (aPTT) in platelet poor plasma by coagulation aOrdered By: Michael Cerda on 51-69-8717eHXZ Coag (PPP) [Time]24.9 s25.1-36.5FParkwood HospitalAutomated erythrocytes count in urine sediment (number/area)Ordered By: Michael Cerda on 83-25-7295EMK Auto (Urine sed) [#/Area]0-1 [HPF]0-4FParkwood HospitalAutomated leukocytes count in urine sediment (number/area)Ordered By: Michael Cerda on 99-31-7819KCW Auto (Urine sed) [#/Area]10-19 [HPF]0-4FParkwood HospitalBasophils Auto (Bld) [#/Vol]Ordered By: Michael Cerda on 09-28-2022 Basophils (Bld) [#/Vol]0.0 10*3/uL0.0-0.2FParkwood Hospital Basophils/100 WBC Auto (Bld)Ordered By: Michael Cerda on 11-19-1388Bvkdmnopg/100 WBC (Bld)0.5 %.[facility]aritan HospitalBilirubin Test strip Ql (U) Ordered By: Michael Cerda on 25-14-3460Dzlmcalqh Ql (U)NegativeNegativeTrihealth Good Samaritan HospitalCOVID CepheidOrdered By: Michael Cerda on 09-28-2022 SARS-CoV-2 (COVID-19) Ab IA QlNegativeNegMorrow County Hospital Comment on above:This is a duplicate Cepheid Xpert Xpress CoV-2/Flu/RSV Plus RNA by RT-PCR result to be used for statistical tracking purpose only.SARS-CoV-2 (COVID-19) RNA CRISTINA+probe Ql (Unsp spec)[facility] HospitalCalcium [Mass/volume] in Serum or PlasmaOrdered By: Michael Cerda on 45-82-0817Khfkyir [Mass/Vol]9.3 mg/dL8.6-10.3FParkwood HospitalCarbon dioxide, total [Moles/volume] in Serum or PlasmaOrdered By: Michael Cerda on 30-48-1204DB4 [Moles/Vol]23.7 mmol/L21.0-31.0[facility] HospitalChloride [Moles/volume] in Serum or PlasmaOrdered By: Michael Cerda on 53-05-1692Gteubhvy [Moles/Vol]105 mmol/V73-864HavowdnssTrihealth Good Samaritan HospitalColor Auto (U) Ordered By: Michael Cerda on 10-59-5619Dzqbb (U)YellowYellowTrihealth Good Samaritan HospitalCreatine kinase [Enzymatic activity/volume] in Serum or Plasma Ordered By: Michael Cerda on 88-09-3927CZ [Catalytic activity/Vol]60 U/L30-223 [facility] HospitalCreatinine [Mass/volume] in Serum or Plasma Ordered By: Michael Cerda on 39-41-7989Lsbusmwvfb [Mass/Vol]0.81 mg/dL0.60-1.20 [facility] HospitalEosinophils Auto (Bld) [#/Vol]Ordered By: Michael Cerda on 83-46-0319Stzjftrnlsw (Bld) [#/Vol]0.0 10*3/uL0.0-0.45[facility]itan HospitalEosinophils/100 WBC Auto (Bld)Ordered By: Michael Cerda on 42-85-0524Evqanuoafif/100 WBC (Bld)0.2 %.[facility] Erythrocyte distribution width Auto (RBC) [Ratio]Ordered By: Michael Cerda on 17-95-1987Hqyzlmactht distribution width (RBC) [Ratio]13.5 %11.9-15.3FParkwood HospitalGlucose [Mass/volume] in Serum or PlasmaOrdered By: Michael Cerda on 17-65-3588Lkfwfmm [Mass/Vol]103 mg/pD88-928LhfrrzzdlTrihealth Good Samaritan HospitalComment on above:ADA recommended reference rangeRandom Glucose Reference Range is dependent on time and content of last meal. Glucose of more than 200 mg/dL in a nonstressed, ambulatory subject supports the diagnosisof Diabetes Mellitus.Hematocrit Auto (Bld) [Volume fraction]Ordered By: Michael Cerda on 31-52-1791Zztrurnext (Bld) [Volume fraction]38.9 %34.0-46.4FParkwood HospitalHemoglobin [Mass/volume] in BloodOrdered By: Michael Cerda on 71-06-0879Fdcjlupgwq (Bld) [Mass/Vol]13.2 g/dL11.8-15.4FParkwood HospitalKetones Auto test strip (U) [Mass/Vol]Ordered By: Michael Cerda on 97-16-8726Jtkybxy (U) [Mass/Vol]NegativeNegativeTrihealth Good Samaritan HospitalLaboratory - CoagulationOrdered By: Michael Cerda on 87-97-9679RP Coag (PPP) [Time]12.0 s9.0-12.9[facility] HospitalLaboratory - UrinalysisOrdered By: Michael Cerda on 35-63-0033Ijeevmw casts LM Ql (Urine sed) 0-8 [LPF]0-8[facility] HospitalLeukocytes [#/volume] corrected for nucleated erythrocytes in Blood by Automated counOrdered By: Michael Cerda on 19-73-3254RSM corrected for nucl RBC Auto (Bld) [#/Vol]5.1 10*3/uL3.8-11.6 [facility] HospitalLymphocytes Auto (Bld) [#/Vol]Ordered By: Michael Cerda on 73-23-4922Xwozuwrgyog (Bld) [#/Vol]0.6 10*3/uL1.00-4.8[facility] HospitalLymphocytes/100 WBC Auto (Bld)Ordered By: Michael Cerda on 33-44-6506Mnexulgqzjj/100 WBC (Bld)11.0 %.[facility] Auto (RBC) [Entitic mass]Ordered By: Michael Cerda on 68-72-7996DWI (RBC) [Entitic mass]33.0 pg24.7-34.3FParkwood HospitalMCHC Auto (RBC) [Mass/Vol]Ordered By: Michael Cerda on 10-41-9024KUME (RBC) [Mass/Vol]34.0 g/dL 32.0-35.0[facility] HospitalMCV Auto (RBC) [Entitic vol]Ordered By: Michael Cerda on 29-29-0772HXF (RBC) [Entitic vol]97.0 wP47-642OodomtskjTrihealth Good Samaritan HospitalMonocyte distribution width [Entitic volume] in Blood by AutomatedOrdered By: Michael Cerda on 13-66-8900Tffqfztq distribution width Auto (Bld) [Entitic vol]24.75 %0.00-20.00[facility]itan HospitalComment on above:For adults in ED, MDW > 20.0 may be associated with a higher risk of sepsis during the first 12 hrs of hospital admissionMonocytes Auto (Bld) [#/Vol] Ordered By: Michael eCrda on 80-01-6106Jawrqthqs (Bld) [#/Vol]0.3 10*3/uL0.0-0.8 [facility] HospitalMonocytes/100 WBC Auto (Bld)Ordered By: Michael Cerda on 19-49-6793Atbvqkmju/100 WBC (Bld)5.8 %.[facility] HospitalNatriuretic peptide B [Mass/Vol]Ordered By: Michael Cerda on 09-28-2022 Natriuretic peptide B (Bld) [Mass/Vol]27.0 pg/mL5-100[facility] HospitalNeutrophils Auto (Bld) [#/Vol]Ordered By: Michael Cerda on 09-28-2022 Neutrophils (Bld) [#/Vol]4.2 10*3/uL1.8-7.7FParkwood Hospital Neutrophils/100 WBC Auto (Bld)Ordered By: Michael Cerda on 09-28-2022 Neutrophils/100 WBC (Bld)82.5 %.[facility]itan HospitalNitrite Test strip Ql (U)Ordered By: Michael Cerda on 86-17-6195Qblgndn Ql (U)NegativeNegative [facility] HospitalNo Panel InformationOrdered By: Michael Cerda on 74-29-0849T-Dimer Quantitative (PE/DVT)560 ng/mL0-243[facility] HospitalComment on above:The reference range for D-dimer [...] due toco-morbid conditions.Estimated GFR (CKD-EPI)> 60.0 mL/Min [facility] HospitalPharmacy Creatinine Clearance (Zqys292.50 [facility] HospitalNucleated erythrocytes [Presence] in Blood by Automated countOrdered By: Michael Cerda on 79-94-3561Wdewhqzoa RBC Auto Ql (Bld) 0.1 /100{WBC}0-0.5FParkwood HospitalPlatelet mean volume Auto (Bld) [Entitic vol]Ordered By: Michael Cerda on 15-39-0205Wtoxcxrw mean volume (Bld) [Entitic vol]7.4 fL6.3-10.7FParkwood HospitalPlatelet poor plasma international normalized ratio (INR) by coagulation assay (relatOrdered By: Michael Cerda on 17-28-2402[facility] Coag (PPP) [Relative time]1.0 {INR}[facility] HospitalComment on above:INR Therapeutic Range A) Pre- [...] (Bld) [#/Vol] Ordered By: Michael Cerda on 98-24-6316Fsarpnczj (Bld) [#/Vol]197 10*3/vO461-007 [facility] HospitalPotassium [Moles/volume] in Serum or Plasma Ordered By: Michael Cerda on 05-60-3341Obpqnwqmi [Moles/Vol]3.7 mmol/L3.5-5.1 [facility] HospitalProtein Auto test strip (U) [Mass/Vol]Ordered By: Michael Cerda on 22-54-0085Mgwmagv (U) [Mass/Vol]NegativeNegativeTrihealth Good Samaritan HospitalRBC Auto (Bld) [#/Vol]Ordered By: Michael Cerda on 90-94-9637JZH (Bld) [#/Vol]4.01 10*6/uL3.60-5.00[facility] Medical Centererum or plasma anion gap determinationOrdered By: Michael Cerda on 15-65-5325Pzshb gap [Moles/Vol]13.0 mmol/L6.0-15.0[facility] Medical Centerodium [Moles/volume] in Serum or PlasmaOrdered By: Michael Cerda on 96-09-1990Ezhtlm [Moles/Vol]138 mmol/Q156-937TsyuzabzaTrihealth Good Samaritan Hospital Specific gravity Auto test strip (U) [Rel density]Ordered By: Michael Cerda on 00-09-3879Cryphniy gravity (U) [Rel density]1.0151.001-1.030[facility] Medical Centerquamous epithelial cells detection in urine sediment by light microscopyOrdered By: Michael Cerda 31-66-9870Jymdhoyukp cells.squamous LM Ql (Urine sed)3-4 [HPF]0-2FParkwood HospitalTroponin I.cardiac [Mass/volume] in Serum or Plasma by Detection limit <= 0.01 ng/Ordered By: Michael Cerda on 96-72-6250Ndtlhbeh I.cardiac DL <= 0.01 ng/mL [Mass/Vol]5.1 pg/mL0.0-15.0[facility]itan HospitalUrea nitrogen [Mass/volume] in Serum or PlasmaOrdered By: Michael Cerda on 30-35-3107Ewxo nitrogen [Mass/Vol]11 mg/dL7-25[facility] HospitalUrine bacteria detection by automated methodOrdered By: Michael Cerda on 46-56-6933Wtjkzejv Auto Ql (U)None seenNone SeenTrihealth Good Samaritan HospitalUrine clarity by refractometry automated Ordered By: Michael Cerda on 60-06-2597Igztrwz Refractometry automated (U)Clear ClearTrihealth Good Samaritan HospitalUrine culture routineOrdered By: Michael Cerda on 27-16-5217Kotnasbb identified Cx Nom (U)2 DaysTrihealth Good Samaritan HospitalUrine glucose measurement by automated test strip (mass/volume)Ordered By: Michael Cerda on 05-13-1728Grttpaf Auto test strip (U) [Mass/Vol]Normal mg/dL NormalTrihealth Good Samaritan HospitalUrine hemoglobin detection by automated test stripOrdered By: Michael Cerda on 89-83-8377Ptiufqrdbw Auto test strip Ql (U)NegativeNegativeTrihealth Good Samaritan HospitalUrine leukocyte esterase detection by automated test stripOrdered By: Michael Cerda on 29-95-3760Jsgykqyhy esterase Auto test strip Ql (U)3+NegativeTrihealth Good Samaritan Hospital Urobilinogen Auto test strip (U) [Mass/Vol]Ordered By: Michael Cerda on 38-18-1711Bteddjazyyte (U) [Mass/Vol]Normal mg/dLNormalTrihealth Good Samaritan HospitalWBC Auto (Bld) [#/Vol]Ordered By: Michael Cerda on 60-19-1446OAI (Bld) [#/Vol]5.1 10*3/uL3.8-11.6FParkwood HospitalpH Auto test strip (U)Ordered By: Michael Cerda on 56-80-6619xI (U)6.5 [pH]5.0-9.0[facility] HospitalCholesterol [Mass/volume] in Serum or PlasmaOrdered By: Nimesh Cerda on 18-41-4406Iokuhmeyvkq [Mass/Vol]213 mg/yD112-299 [facility] HospitalComment on above:Chol less than 200 mg/dl low riskChol 201-239 mg/dl borderline riskChol 240 mg/dl and greater high risk Cholesterol in LDL Calc [Mass/Vol]Ordered By: Nimesh Cerda on 67-90-7106Ipayyxebklw in LDL [Mass/Vol]126 mg/dL0-100[facility] HospitalComment on above:LDL ATP III CLASSIFICATIONLDL less than 100 mg/dL OptimalLDL 100-129 mg/dL Near or above vxrnztfURA145-289 mg/dL Borderline highLDL 160-189 mg/dL HighLDL greater than 189 mg/dL Very highCholesterol in VLDL Calc [Mass/Vol]Ordered By: Nimesh Cerda on 63-72-9340Stlkdtdibho in VLDL [Mass/Vol]19 mg/dLAshtabula County Medical Centererum or plasma high density lipoprotein (HDL) cholesterol measurementOrdered By: Nimesh Cerda on 41-32-0339Qfgiscbmxao in HDL [Mass/Vol]67 mg/jA12-84MeubolpjkTrihealth Good Samaritan HospitalComment on above:HDL CHOL ATP-III CLASSIFICATION Cardiovascular RiskHDL > or equal to 60 mg/dL LOWHDL < 40 mg/dL HIGHSerum or plasma total cholesterol/high density lipoprotein (HDL) cholesterol mass rat Ordered By: Nimesh Cerda on 48-49-0994Yknddalulus.total/Cholesterol in HDL [Mass ratio]3.2 {ratio}<5.0[facility]itan HospitalThyrotropin [Units/volume] in Serum or PlasmaOrdered By: Nimesh Cerda on 09-04-2022 TSH Qn1.74 m[IU]/L0.45-5.33[facility]itan HospitalTriglyceride [Mass/volume] in Serum or PlasmaOrdered By: Nimesh Cerda on 09-04-2022 Triglyceride [Mass/Vol]98 mg/dL0-149[facility]itan HospitalComment on above:TRIG ATP III CLASSIFICATIONTRIG less than 150 mg/dL NormalTRIG 150-199 mg/dL Borderline highTRIG 200-500 mg/dL High TRIG greater than 500 mg/dL Very highStandard traceable to the Center for Disease Conrtrol and Prevention (CDC) test method.Vitamin D+Metabolites [Mass/volume] in Serum or PlasmaOrdered By: Nimesh Cerda on 05-70-6634Mcxlfqh D+Metabolites [Mass/Vol]31.0 ng/mL 30-100[facility] HospitalComment on above:VITAMIN D STATUS 25(OH)VITAMIN D RANGE (ng/mL) Deficient <20 Insufficient 20 to <86Bpiqjvspeq64 to 100Reference: Franklyn MF,Benjamin GRAF, Andreina MARQUEZ, et al. Evaluation,treatment, and prevention of vitamin D deficiency; an Endocrine Society clinical practice guideline. JCEM. 2010; 96(7):1911-30.Alanine aminotransferase [Enzymatic activity/volume] in Serum or PlasmaOrdered By: Raffaele Ellsworth on 36-94-9998AGE [Catalytic activity/Vol]26 U/L7-52[facility] HospitalAlbumin [Mass/volume] in Serum or Plasma by Bromocresol green (BCG) dye binding methoOrdered By: Raffaele Ellsworth on 96-74-8012Wftxjqa BCG dye [Mass/Vol]4.1 g/dL3.5-5.7FParkwood HospitalAlkaline phosphatase [Enzymatic activity/volume] in Serum or PlasmaOrdered By: Raffaele Ellsworth on 80-23-5228ZMF [Catalytic activity/Vol]77 U/T84-802WadtvnfdsTrihealth Good Samaritan HospitalAmphetamine Screen Ql (U)Ordered By: Raffaele Ellsworth on 75-85-8027Tzvvajgheqwp Ql (U)NegativeNegativeTrihealth Good Samaritan Hospital Aspartate aminotransferase [Enzymatic activity/volume] in Serum or PlasmaOrdered By: Raffaele Ellsworth on 06-65-9646DWG [Catalytic activity/Vol]29 U/L13-39 [facility] HospitalAutomated erythrocytes count in urine sediment (number/area)Ordered By: Raffaele Ellsworth on 60-48-7235EDY Auto (Urine sed) [#/Area]5-9 [HPF]0-4FParkwood HospitalAutomated leukocytes count in urine sediment (number/area)Ordered By: Raffaele Ellsworth on 58-56-1070TNM Auto (Urine sed) [#/Area]10-19 [HPF]0-4FParkwood Hospital Barbiturates [Presence] in Urine by Screen methodOrdered By: Raffaele Ellsworth on 59-59-7874Stoltjlslihs Screen Ql (U)NegativeNegativeTrihealth Good Samaritan HospitalBasophils Auto (Bld) [#/Vol]Ordered By: Raffaele Ellsworth on 03-41-7749Dmctayain (Bld) [#/Vol]0.0 10*3/uL0.0-0.2FParkwood HospitalBasophils/100 WBC Auto (Bld)Ordered By: Raffaele Ellsworth on 09-03-2022 Basophils/100 WBC (Bld)0.6 %.[facility]itan HospitalBenzodiazepines Screen Ql (U)Ordered By: Raffaele Ellsworth on 06-05-5015Gsoukqejflgepim Ql (U) NegativeNegativeTrihealth Good Samaritan HospitalBenzoylecgonine [Presence] in Urine by Screen methodOrdered By: Raffaele Ellsworth on 25-04-6254Rcqaithqkrsyhtm Screen Ql (U)NegativeNegMorrow County HospitalBilirubin Test strip Ql (U)Ordered By: Raffaele Ellsworth on 21-03-9119Qrdmcwbtd Ql (U)Negative NegativeTrihealth Good Samaritan HospitalBilirubin.total [Mass/volume] in Serum or PlasmaOrdered By: Raffaele Ellsworth on 02-24-6193Cfcqozeda [Mass/Vol]0.4 mg/dL0.3-1.0[facility] HospitalCalcium [Mass/volume] in Serum or PlasmaOrdered By: Raffaele Ellsworth on 81-66-9370Sajziwh [Mass/Vol]9.6 mg/dL 8.6-10.3FParkwood HospitalCannabinoids [Presence] in Urine by Screen methodOrdered By: Raffaele Ellsworth on 77-35-9243Tkyoveofetek Screen Ql (U)NegativeNegMorrow County HospitalComment on above:These are unconfirmed results and should not be used for legal purposes. Drug Cut-Off Concentration: AMPH 1000 ng/mL BOO 200 ng/mL HELGA 200 ng/mL COCM 300 ng/mL OP 300 ng/mL PCP 25 ng/mL THC 20 ng/mLCarbon dioxide, total [Moles/volume] in Serum or PlasmaOrdered By: Raffaele Ellsworth on 31-08-7622CN0 [Moles/Vol]23.8 mmol/L 21.0-31.0[facility] HospitalChloride [Moles/volume] in Serum or PlasmaOrdered By: Raffaele Ellsworth 98-02-2469Ujdhupsh [Moles/Vol]107 mmol/L 98-107[facility]itan HospitalColor Auto (U)Ordered By: Raffaele Ellsworth on 69-39-1404Tvcgh (U)YellowYellowTrihealth Good Samaritan Hospital Creatinine [Mass/volume] in Serum or PlasmaOrdered By: Raffaele Ellsworth on 83-89-8308Cbcxznzczx [Mass/Vol]0.76 mg/dL0.60-1.20[facility]itan HospitalEosinophils Auto (Bld) [#/Vol]Ordered By: Raffaele Ellsworth on 09-03-2022 Eosinophils (Bld) [#/Vol]0.1 10*3/uL0.0-0.45[facility] Eosinophils/100 WBC Auto (Bld)Ordered By: Raffaele Ellsworth on 09-03-2022 Eosinophils/100 WBC (Bld)2.0 %.[facility] [facility] HospitalErythrocyte distribution width Auto (RBC) [Ratio]Ordered By: Raffaele Ellsworth on 09-03-2022 Erythrocyte distribution width (RBC) [Ratio]14.8 %11.9-15.3FParkwood HospitalEthanol [Mass/volume] in Serum or PlasmaOrdered By: Raffaele Ellsworth on 72-80-9744Benqvai [Mass/Vol]mg/dLTrihealth Good Samaritan Hospital Ethanol [Mass/Vol]TNPTrihealth Good Samaritan HospitalComment on above:Test not performedGlobulin Calc (S) [Mass/Vol]Ordered By: Raffaele Ellsworth on 09-03-2022 Globulin (S) [Mass/Vol]2.9 g/dLTrihealth Good Samaritan HospitalGlucose [Mass/volume] in Serum or PlasmaOrdered By: Raffaele Ellsworth on 09-03-2022 Glucose [Mass/Vol]79 mg/jL57-515MxqzlwlzfTrihealth Good Samaritan HospitalComment on above:ADA recommended reference rangeRandom Glucose Reference Range is dependent on time and content of last meal. Glucose of more than 200 mg/dL in a nonstressed, ambulatory subject supports the diagnosisof Diabetes Mellitus. Hematocrit Auto (Bld) [Volume fraction]Ordered By: Raffaele Ellsworth on 51-24-0846Ztyahijefx (Bld) [Volume fraction]38.3 %34.0-46.4FParkwood HospitalHemoglobin [Mass/volume] in BloodOrdered By: Raffaele Ellsworth on 86-68-5821Yyghogtwgv (Bld) [Mass/Vol]12.8 g/dL11.8-15.4FParkwood HospitalKetones Auto test strip (U) [Mass/Vol]Ordered By: Raffaele Ellsworth on 16-09-4843Iirmwmu (U) [Mass/Vol]TraceNegativeTrihealth Good Samaritan HospitalLaboratory - Chemistry and Chemistry - challengeOrdered By: Raffaele Ellsworth on 52-83-9649KRU/1.73 sq M.predicted MDRD (S/P/Bld) [Vol rate/Area]mL/min/{1.73_m2}[facility] HospitalLaboratory - UrinalysisOrdered By: Raffaele Ellsworth on 68-52-2508Plhsneg casts LM Ql (Urine sed)0-8 [LPF]0-8[facility] HospitalLeukocytes [#/volume] corrected for nucleated erythrocytes in Blood by Automated counOrdered By: Raffaele Ellsworth on 07-78-0399RNT corrected for nucl RBC Auto (Bld) [#/Vol]6.5 10*3/uL 3.8-11.6FParkwood HospitalLymphocytes Auto (Bld) [#/Vol]Ordered By: Raffaele Ellsworth on 57-43-0580Rrivdyubywa (Bld) [#/Vol]1.8 10*3/uL1.00-4.8 [facility] HospitalLymphocytes/100 WBC Auto (Bld)Ordered By: Raffaele Ellsworth on 63-48-2713Tgewmacnnpg/100 WBC (Bld)28.2 %.[facility]H Auto (RBC) [Entitic mass]Ordered By: Raffaele Ellsworth on 26-14-0019WGF (RBC) [Entitic mass]32.7 pg24.7-34.3FParkwood HospitalMCHC Auto (RBC) [Mass/Vol]Ordered By: Raffaele Ellsworth on 80-25-0392NBCO (RBC) [Mass/Vol]33.4 g/dL32.0-35.0[facility] HospitalMCV Auto (RBC) [Entitic vol]Ordered By: Raffaele Ellsworth on 68-13-6387PIV (RBC) [Entitic vol]97.9 uG38-752DfjtpsvydTrihealth Good Samaritan HospitalMonocyte distribution width [Entitic volume] in Blood by AutomatedOrdered By: Raffaele Ellsworth on 13-77-9519Mejlkdhi distribution width Auto (Bld) [Entitic vol]18.00 % 0.00-20.00[facility] HospitalMonocytes Auto (Bld) [#/Vol]Ordered By: Raffaele Ellsworth on 12-60-6187Qkbclshyg (Bld) [#/Vol]0.5 10*3/uL0.0-0.8 [facility] HospitalMonocytes/100 WBC Auto (Bld)Ordered By: Raffaele Ellsworth on 98-65-6649Gzdnqmsma/100 WBC (Bld)7.1 %.[facility] HospitalNeutrophils Auto (Bld) [#/Vol]Ordered By: Raffaele Ellsworth on 52-58-4517Lhvxaoyskua (Bld) [#/Vol]4.0 10*3/uL1.8-7.7FParkwood HospitalNeutrophils/100 WBC Auto (Bld)Ordered By: Raffaele Ellsworth on 09-03-2022 Neutrophils/100 WBC (Bld)62.1 %.[facility] HospitalNitrite Test strip Ql (U)Ordered By: Raffaele Ellsworth on 04-51-5136Nxllxsh Ql (U)Negative [facility] HospitalNo Panel InformationOrdered By: Raffaele Ellsworth on 41-30-1906Qjwwqpvk Creatinine Clearance (Iyfc757.74 [facility] HospitalNucleated erythrocytes [Presence] in Blood by Automated countOrdered By: Raffaele Ellsworth on 17-39-7129Whelwodnc RBC Auto Ql (Bld)0.0 /100{WBC}0-0.5FParkwood HospitalOpiates [Presence] in Urine by Screen methodOrdered By: Raffaele Ellsworth on 56-23-6430Vjcpmlg Screen Ql (U)NegativeNegativeTrihealth Good Samaritan HospitalPhencyclidine Screen Ql (U)Ordered By: Raffaele Ellsworth on 00-61-3287Axiuwxhkhngip Ql (U)Negative NegativeTrihealth Good Samaritan HospitalPlatelet mean volume Auto (Bld) [Entitic vol]Ordered By: Raffaele Ellsworth on 95-88-4970Mmrilmfq mean volume (Bld) [Entitic vol]7.2 fL6.3-10.7FParkwood HospitalPlatelets Auto (Bld) [#/Vol]Ordered By: Raffaele Ellsworth on 24-02-3832Ojctrjxiy (Bld) [#/Vol] 241 10*3/gP038-807TxhnpjxdfTrihealth Good Samaritan HospitalPotassium [Moles/volume] in Serum or PlasmaOrdered By: Raffaele Ellsworth on 88-08-6219Iorqbacep [Moles/Vol] 4.0 mmol/L3.5-5.1FParkwood HospitalProtein Auto test strip (U) [Mass/Vol]Ordered By: Raffaele Ellsworth on 96-66-2279Eczbysy (U) [Mass/Vol] NegativeNegativeTrihealth Good Samaritan HospitalProtein [Mass/volume] in Serum or PlasmaOrdered By: Raffaele Ellsworth on 57-01-6296Yymrttl [Mass/Vol]7.0 g/dL 6.4-8.9[facility] HospitalRBC Auto (Bld) [#/Vol]Ordered By: Raffaele Ellsworth on 69-41-8131UNF (Bld) [#/Vol]3.91 10*6/uL3.60-5.00[facility] Centererum or plasma albumin/globulin mass ratioOrdered By: Raffaele Ellsworth on 17-70-3366Hbjysgh/Globulin [Mass ratio]1.4 {ratio}[facility] Centererum or plasma anion gap determinationOrdered By: Raffaele Ellsworth on 10-31-6659Obtha gap [Moles/Vol]12.2 mmol/L6.0-15.0[facility] Centerodium [Moles/volume] in Serum or PlasmaOrdered By: Raffaele Ellsworth on 45-23-6763Ychmrf [Moles/Vol]139 mmol/M839-705ZbavwuwpoAshtabula County Medical Centerpecific gravity Auto test strip (U) [Rel density]Ordered By: Raffaele Ellsworth on 16-17-1868Oydppand gravity (U) [Rel density]1.020 1.001-1.030[facility] Centerquamous epithelial cells detection in urine sediment by light microscopyOrdered By: Raffaele Ellsworth on 09-03-2022 Epithelial cells.squamous LM Ql (Urine sed)5-9 [HPF]0-2FParkwood HospitalUrea nitrogen [Mass/volume] in Serum or PlasmaOrdered By: Raffaele Ellsworth on 48-91-2952Hrhl nitrogen [Mass/Vol]9 mg/dL7-25[facility] HospitalUrine bacteria detection by automated methodOrdered By: Raffaele Ellsworth on 51-91-2054Lukvsivl Auto Ql (U)None seenNone SeenTrihealth Good Samaritan HospitalUrine clarity by refractometry automatedOrdered By: Raffaele Ellsworth on 42-85-9818Uxgcqkn Refractometry automated (U)ClearClear [facility] HospitalUrine culture routineOrdered By: Raffaele Ellsworth on 81-87-4241Kryjbozq identified Cx Nom (U)2 DaysTrihealth Good Samaritan HospitalUrine glucose measurement by automated test strip (mass/volume) Ordered By: Raffaele Ellsworth on 71-78-2727Oujjbtk Auto test strip (U) [Mass/Vol]Normal mg/dLNormPremier Health Miami Valley Hospital SouthUrine hemoglobin detection by automated test stripOrdered By: Raffaele Ellsworth on 09-03-2022 Hemoglobin Auto test strip Ql (U)TraceNegativeTrihealth Good [facility] Hospital Urine leukocyte esterase detection by automated test stripOrdered By: Raffaele Ellsworth on 32-06-0580Ipzoryvtn esterase Auto test strip Ql (U)2+Negative [facility] HospitalUrobilinogen Auto test strip (U) [Mass/Vol] Ordered By: Raffaele Ellsworth on 41-62-1138Fbokdbpxghws (U) [Mass/Vol]Normal mg/dLNormPremier Health Miami Valley Hospital SouthWBC Auto (Bld) [#/Vol]Ordered By: Raffaele Ellsworth on 69-25-7077PKX (Bld) [#/Vol]6.5 10*3/uL3.8-11.6FParkwood HospitalpH Auto test strip (U)Ordered By: Raffaele Ellsworth on 80-50-0744aV (U)5.0 [pH]5.0-9.0[facility] HospitalBasophils Auto (Bld) [#/Vol]Ordered By: Urbano Palma on 99-59-8650Vzfmfzerq (Bld) [#/Vol]0.0 10*3/uL0.0-0.2FParkwood HospitalBasophils/100 WBC Auto (Bld) Ordered By: Urbano Palma on 39-17-2923Ibtomdfxj/100 WBC (Bld)0.3 %.[facility] HospitalEosinophils Auto (Bld) [#/Vol]Ordered By: Urbano Palma on 09-08-7355Taflxdawygq (Bld) [#/Vol]0.0 10*3/uL0.0-0.45[facility] HospitalEosinophils/100 WBC Auto (Bld)Ordered By: Urbano Palma on 89-89-4537Lcwyhtgulub/100 WBC (Bld)0.4 %.[facility] Erythrocyte distribution width Auto (RBC) [Ratio]Ordered By: Urbano Palma on 18-26-6604Jsyqssktzeq distribution width (RBC) [Ratio]17.2 %11.9-15.3FParkwood HospitalHematocrit Auto (Bld) [Volume fraction]Ordered By: Urbano Palma on 76-24-7738Vzyzrmockp (Bld) [Volume fraction]30.3 %34.0-46.4 [facility] HospitalHemoglobin [Mass/volume] in BloodOrdered By: Urbano Palma on 03-67-0419Ltcfcsmpzv (Bld) [Mass/Vol]10.2 g/dL11.8-15.4 [facility] HospitalLeukocytes [#/volume] corrected for nucleated erythrocytes in Blood by Automated counOrdered By: Urbano Palma on 08-13-2022 WBC corrected for nucl RBC Auto (Bld) [#/Vol]10.0 10*3/uL3.8-11.6FParkwood HospitalLymphocytes Auto (Bld) [#/Vol]Ordered By: Urbano Palma on 26-45-3859Bzugirsjcji (Bld) [#/Vol]1.7 10*3/uL1.00-4.8[facility] HospitalLymphocytes/100 WBC Auto (Bld)Ordered By: Urbano Palma on 44-77-3638Hgxxztqwlcf/100 WBC (Bld)16.5 %.[facility] SystemH Auto (RBC) [Entitic mass]Ordered By: Urbano Palma on 50-05-7605LSF (RBC) [Entitic mass]32.9 pg24.7-34.3FParkwood HospitalMCHC Auto (RBC) [Mass/Vol]Ordered By: Urbano Palma on 22-60-9111MJMQ (RBC) [Mass/Vol]33.6 g/dL 32.0-35.0[facility] HospitalMCV Auto (RBC) [Entitic vol]Ordered By: Urbano Palma on 56-04-3302HBO (RBC) [Entitic vol]97.8 tO43-790VkbhojdhgTrihealth Good Samaritan HospitalMonocytes Auto (Bld) [#/Vol]Ordered By: Urbano Palma on 65-10-0355Yldvbknqt (Bld) [#/Vol]0.5 10*3/uL0.0-0.8[facility] HospitalMonocytes/100 WBC Auto (Bld)Ordered By: Urbano Palma on 08-13-2022 Monocytes/100 WBC (Bld)5.4 %.[facility] HospitalNeutrophils Auto (Bld) [#/Vol]Ordered By: Urbano Palma on 09-46-3033Aqeqqxhaidt (Bld) [#/Vol]7.7 10*3/uL1.8-7.7FParkwood HospitalNeutrophils/100 WBC Auto (Bld) Ordered By: Urbano Palma on 17-70-3071Pzsaifbolml/100 WBC (Bld)77.4 %.[facility] HospitalNucleated erythrocytes [Presence] in Blood by Automated countOrdered By: Urbano Palma on 31-45-4853Gfulnvncv RBC Auto Ql (Bld)0.0 /100{WBC}0-0.5FParkwood HospitalPlatelet mean volume Auto (Bld) [Entitic vol]Ordered By: Urbano Palma on 78-21-5683Kdfnparr mean volume (Bld) [Entitic vol]8.2 fL6.3-10.7FParkwood HospitalPlatelets Auto (Bld) [#/Vol]Ordered By: Urbano Palma on 43-56-5307Vofbcqrga (Bld) [#/Vol]125 10*3/uL 150-450Tri[facility] HospitalRBC Auto (Bld) [#/Vol]Ordered By: Urbano Palma on 09-78-0675BWH (Bld) [#/Vol]3.10 10*6/uL3.60-5.00[facility] HospitalWBC Auto (Bld) [#/Vol]Ordered By: Urbano Palma on 25-60-0653PYS (Bld) [#/Vol]10.0 10*3/uL3.8-11.6FParkwood Hospital Glucose Glucometer (dC) [Mass/Vol]Ordered By: Urbano Palma on 08-12-2022 Glucose [Mass/Vol]82 mg/dLTrihealth Good Samaritan HospitalComment on above: Random Glucose Reference Range is dependent on time and content of last meal. Glucose of more than 200 mg/dL in a nonstressed, ambulatory subject supports the diagnosis of Diabetes Mellitus.No Panel InformationOrdered By: Urbano Palma on 54-74-5968Hyfmabb Glucose CommentGlu2: cleaned meterTrihealth Good Samaritan HospitalAmphetamine Screen Ql (U)Ordered By: Urbano Palma on 08-11-2022 Amphetamines Ql (U)NegativeNegMorrow County HospitalAutomated erythrocytes count in urine sediment (number/area)Ordered By: Urbano Palma on 35-23-9290WVX Auto (Urine sed) [#/Area]0-1 [HPF]0-4FParkwood HospitalAutomated leukocytes count in urine sediment (number/area)Ordered By: Urbano Palma on 97-16-5565DJD Auto (Urine sed) [#/Area]50-100 [HPF]0-4FParkwood HospitalAutomated urine hyaline casts count (number/volume) Ordered By: Urbano Palma on 44-83-5740Npfnujf casts Auto (U) [#/Vol]None seen [LPF]0-1FParkwood HospitalBarbiturates [Presence] in UrineOrdered By: Urbano Palma on 31-66-3831Aupdktzgealg Ql (U)NegativeNegMorrow County HospitalBenzodiazepines [Presence] in UrineOrdered By: Urbano Palma on 10-93-1130Xffuijtnhwrgiqv Ql (U)NegativeNegMorrow County HospitalBilirubin Test strip Ql (U)Ordered By: Urbano Palma on 08-11-2022 Bilirubin Ql (U)NegativeNegMorrow County HospitalCast typing in urine sediment by light microscopyOrdered By: Urbano Palma on 80-88-7982Cphry LM Nom (Urine sed)None seen [LPF]None SeenTrihealth Good Samaritan HospitalColor Auto (U)Ordered By: Urbano Palma on 41-77-0029Avlru (U)YellowYellowTrihealth Good Samaritan HospitalGlucose [Mass/volume] in Serum or PlasmaOrdered By: Urbano Palma on 58-64-1483Tzacoin [Mass/Vol]69 mg/hV42-101PluirdsycTrihealth Good Samaritan HospitalComment on above:ADA recommended reference rangeRandom Glucose Reference Range is dependent on time and content of last meal. Glucose of more than 200 mg/dL in a nonstressed, ambulatory subject supports the diagnosisof Diabetes Mellitus.Ketones Auto test strip (U) [Mass/Vol]Ordered By: Urbano Palma on 31-45-6603Mmdxhcd (U) [Mass/Vol]TraceNegativeTrihealth Good Samaritan HospitalLaboratory - Drug toxicologyOrdered By: Urbano Palma on 08-11-2022 Opiates Ql (U)NegativeNegMorrow County HospitalNitrite Test strip Ql (U)Ordered By: Urbano Palma on 47-65-0627Whtiqwo Ql (U)Negative NegativeTrihealth Good Samaritan HospitalPhencyclidine Screen Ql (U)Ordered By: Urbano Palma on 59-29-6922Ymccvjhibvskx Ql (U)NegativeNegMorrow County HospitalCompromedica charles [facility] on above:These are unconfirmed results and should not be used for legal purposes. Drug Cut-Off Concentration: AMPH 1000 ng/mL BOO 200 ng/mL HELGA 200 ng/mL COCM 300 ng/mL OP 300 ng/mL PCP 25 ng/mLProtein Auto test strip (U) [Mass/Vol]Ordered By: Urbano Palma on 46-54-7747Draoyvk (U) [Mass/Vol]30 mg/dLNegMorrow County HospitalReagin Ab [Presence] in Serum by RPROrdered By: Urbano Palma on 35-39-2269Umpein Ab RPR Ql (S) Non-ReactiveNon ReactiveTrihealth Good Samaritan HospitalComment on above: Performed at: [employer] [id number] Director: Prabhakar Warren PhD, Phone: [phone] gravity Auto test strip (U) [Rel density]Ordered By: Urbano Palma on 45-73-8753Jztmulhr gravity (U) [Rel density]1.0211.001-1.030[facility] Centerquamous epithelial cells detection in urine sediment by light microscopyOrdered By: Urbano Palma on 47-28-5882Afccnurtet cells.squamous LM Ql (Urine sed)5-9 [HPF] 0-2FParkwood HospitalUrine bacteria detection by automated method Ordered By: Urbano Palma on 52-41-0664Cpfvcqfi Auto Ql (U)1+None SeenTrihealth Good Samaritan HospitalUrine clarity by refractometry automatedOrdered By: Urbano Palma on 78-88-0783Rmufelc Refractometry automated (U)CloudyClear [facility] HospitalUrine cocaine detectionOrdered By: Urbano Palma on 66-82-3386Pglwaqj Ql (U)NegativeNegMorrow County HospitalUrine culture routineOrdered By: Urbano Palma on 19-76-3411Gphqhijg identified Cx Nom (U)Cinthya albicansTrihealth Good Samaritan HospitalUrine glucose measurement by automated test strip (mass/volume)Ordered By: Urbano Palma on 62-34-8688Ktktjec Auto test strip (U) [Mass/Vol]Normal mg/dLNewark HospitalUrine hemoglobin detection by automated test stripOrdered By: Urbano Palma on 84-50-6734Wrdrwxqwct Auto test strip Ql (U) NegativeNegMorrow County HospitalUrine leukocyte esterase detection by automated test stripOrdered By: Urbano Palma on 08-11-2022 Leukocyte esterase Auto test strip Ql (U)3+NegativeTrihealth Good Samaritan HospitalUrobilinogen Auto test strip (U) [Mass/Vol]Ordered By: Urbano Palma on 79-49-7913Tapmirxqzlhi (U) [Mass/Vol]Normal mg/dLNormalFirelands Regional Medical CenterpH Auto test strip (U)Ordered By: Urbano Palma on 53-20-0264oC (U)5.5 [pH]5.0-9.0[facility] HospitalAlbumin [Mass/volume] in Serum or PlasmaOrdered By: CANDICE Cody on 00-03-3561Jlswsck [Mass/Vol] 2.7 g/dL3.2-5.5FParkwood HospitalBasophils Auto (Bld) [#/Vol] Ordered By: CANDICE Cody on 17-45-9313Rorebbjct (Bld) [#/Vol]0.0 10*3/uL 0.0-0.2FParkwood HospitalBasophils/100 WBC Auto (Bld)Ordered By: CANDICE Cody on 37-80-9045Knvcvsitk/100 WBC (Bld)0.3 %.[facility] HospitalCreatinine and Glomerular filtration rate.predicted panel (S/P/Bld)Ordered By: CANDICE Cody on 15-68-6791Zqwdnvzqtj [Mass/Vol] 0.64 mg/dL0.44-1.03[facility] HospitalEosinophils Auto (Bld) [#/Vol]Ordered By: CANDICE Cody on 13-84-6011Oyxefzzhnuz (Bld) [#/Vol] 0.1 10*3/uL0.0-0.45[facility] HospitalEosinophils/100 WBC Auto (Bld)Ordered By: CANDICE Cody on 00-95-4297Gkakgvhheyb/100 WBC (Bld)0.8 %.[facility] HospitalErythrocyte distribution width Auto (RBC) [Ratio]Ordered By: CANDICE Cody on 61-19-5692Emvcrlaluph distribution width (RBC) [Ratio]17.8 %11.9-15.3FParkwood HospitalEstimated glomerular filtration rate (GFR) non- AmericanOrdered By: CANDICE Cody on 03-19-1329RLQ/1.73 sq M.predicted among non-blacks MDRD (S/P/Bld) [Vol rate/Area]> 60 mL/MinTrihealth Good Samaritan HospitalGlobulin Calc (S) [Mass/Vol]Ordered By: CANDICE Cody on 17-30-0263Rbstvbni (S) [Mass/Vol] 3.1 g/dLTrihealth Good Samaritan HospitalHematocrit Auto (Bld) [Volume fraction] Ordered By: CANDICE Cody on 46-23-2805Yeoogauztf (Bld) [Volume fraction] 34.8 %34.0-46.4FParkwood HospitalHemoglobin [Mass/volume] in BloodOrdered By: CANDICE Cody on 67-01-1606Nqyemgnrto (Bld) [Mass/Vol] 11.5 g/dL11.8-15.4FParkwood HospitalLeukocytes [#/volume] corrected for nucleated erythrocytes in Blood by Automated counOrdered By: JASON Cody on 96-52-7029TOG corrected for nucl RBC Auto (Bld) [#/Vol]9.1 10*3/uL3.8-11.6FParkwood HospitalLymphocytes Auto (Bld) [#/Vol] Ordered By: CANDICE Cody on 97-81-8349Glsnfkudjnt (Bld) [#/Vol]1.6 10*3/uL1.00-4.8[facility] HospitalLymphocytes/100 WBC Auto (Bld) Ordered By: CANDICE Cody on 67-85-4818Jsezomryccn/100 WBC (Bld)17.0 %. [facility] HospitalMCH Auto (RBC) [Entitic mass]Ordered By: JASON Cody on 16-64-5239BJY (RBC) [Entitic mass]32.3 pg24.7-34.3FParkwood HospitalMCHC Auto (RBC) [Mass/Vol]Ordered By: CANDICE Cody on 55-20-8125VXDV (RBC) [Mass/Vol]33.2 g/dL32.0-35.0[facility] HospitalMCV Auto (RBC) [Entitic vol]Ordered By: CANDICE Cody on 24-78-0051RSD (RBC) [Entitic vol]97.4 tS66-611HgctxmrqnTrihealth Good Samaritan Hospital Monocytes Auto (Bld) [#/Vol]Ordered By: CANDICE Cody on 08-02-2022 Monocytes (Bld) [#/Vol]0.6 10*3/uL0.0-0.8[facility] Monocytes/100 WBC Auto (Bld)Ordered By: CANDICE Cody on 08-02-2022 Monocytes/100 WBC (Bld)6.8 %.[facility] HospitalNeutrophils Auto (Bld) [#/Vol]Ordered By: CANDICE Cody on 87-99-6991Txmeergakys (Bld) [#/Vol]6.9 10*3/uL1.8-7.7FParkwood HospitalNeutrophils/100 WBC Auto (Bld)Ordered By: CANDICE Cody on 56-99-3224Kdmkqyvyomm/100 WBC (Bld)75.1 %.[facility] HospitalNo Panel InformationOrdered By: JASON Cody on 63-04-4113Zfmnyvjhq GFR ()> 60 mL/Min [facility] HospitalComment on above:GFR estimated reference range: According to KDOQI guidelines, <60 ml/min/1.73m2 is sufficient todiagnose a patient with chronic kidney disease.Pharmacy Creatinine Clearance (Kgit016.15 [facility] HospitalNucleated erythrocytes [Presence] in Blood by Automated countOrdered By: CANDICE Cody on 08-54-3372Iyidliznl RBC Auto Ql (Bld)0.0 /100{WBC}0-0.5FParkwood HospitalPlatelet mean volume Auto (Bld) [Entitic vol]Ordered By: CANDICE Cody on 47-81-4465Btmbypyz mean volume (Bld) [Entitic vol]8.2 fL6.3-10.7FParkwood Hospital Platelets Auto (Bld) [#/Vol]Ordered By: CANDICE Cody on 08-02-2022 Platelets (Bld) [#/Vol]130 10*3/jV952-630OvdzeaalgTrihealth Good Samaritan Hospital Protein [Mass/volume] in Serum or PlasmaOrdered By: CANDICE Cody on 31-76-2279Vlrcnbd [Mass/Vol]5.8 g/dL6.1-7.9[facility] HospitalRBC Auto (Bld) [#/Vol]Ordered By: CANDICE Cody on 78-67-8290TAW (Bld) [#/Vol]3.57 10*6/uL3.60-5.00[facility] HospitalReagin Ab [Presence] in Serum by RPROrdered By: CANDICE Cody on 97-28-5124Wmdslo Ab RPR Ql (S)Non-ReactiveNon ReactiveTrihealth Good Samaritan HospitalComment on above:Performed at: [employer] [id number] Director: Prabhakar Warren PhD, Phone: [phone] or plasma alanine aminotransferase measurement without P-5'-P (enzymatic activiOrdered By: CANDICE Cody on 56-99-8723GRF No additional P-5'-P [Catalytic activity/Vol]12 U/Q30-18JilroarvuAshtabula County Medical Centererum or plasma albumin/globulin mass ratioOrdered By: CANDICE Cody on 08-02-2022 Albumin/Globulin [Mass ratio]0.9 {ratio}[facility] Centererum or plasma alkaline phosphatase measurement (enzymatic activity/volume)Ordered By: CANDICE Cody on 20-70-0218DJK [Catalytic activity/Vol]97 U/L32-92 [facility] Centererum or plasma anion gap determinationOrdered By: CANDICE Cody on 74-47-9987Bezda gap [Moles/Vol]11.3 mmol/L6.0-15.0 [facility] Centererum or plasma aspartate aminotransferase measurement (enzymatic activity/volume)Ordered By: CANDICE Cody on 87-29-3083NCY [Catalytic activity/Vol]19 U/H41-47ZtlykorugAshtabula County Medical Centererum or plasma calcium measurement (mass/volume)Ordered By: CANDICE Cody on 93-11-0765Dwtlony [Mass/Vol]9.6 mg/dL8.2-10.2FSamaritan Hospitalerum or plasma chloride measurement (moles/volume)Ordered By: JASON Cody on 75-50-4928Pkwihmpp [Moles/Vol]107 mmol/I67-269QjuwskajgAshtabula County Medical Centererum or plasma glucose measurement (mass/volume)Ordered By: CANDICE Cody on 00-03-4689Lolbyuv [Mass/Vol]84 mg/vW84-523VnlzlcbbhTrihealth Good Samaritan HospitalComment on above:ADA recommended reference rangeRandom Glucose Reference Range is dependent on time and content of last meal. Glucose of more than 200 mg/dL in a nonstressed, ambulatory subject supports the diagnosisof Diabetes Mellitus.Serum or plasma potassium measurement (moles/volume)Ordered By: CANDICE Cody on 48-56-4067Tykcenndk [Moles/Vol]3.8 mmol/L3.5-5.1FSamaritan Hospitalerum or plasma sodium measurement (moles/volume)Ordered By: CANDICE Cody on 08-02-2022 Sodium [Moles/Vol]135 mmol/E514-746XefmocxgvAshtabula County Medical Centererum or plasma total bilirubin measurement (mass/volume)Ordered By: CANDICE Cody on 40-40-5835Prwkomphm [Mass/Vol]0.6 mg/dL0.3-1.2FSamaritan Hospitalerum or plasma total carbon dioxide measurement (moles/volume)Ordered By: CANDICE Cody on 50-12-3328HR9 [Moles/Vol]20.5 mmol/L22.0-30.0[facility] Centererum or plasma urea nitrogen measurement (mass/volume) Ordered By: CANDICE Cody on 01-62-5470Uslw nitrogen [Mass/Vol]6 mg/dL 9-23[facility] Centererum or plasma uric acid measurement (mass/volume)Ordered By: CANDICE Cody on 07-90-3812Jonom [Mass/Vol]4.5 mg/dL2.6-7.2FParkwood HospitalWBC Auto (Bld) [#/Vol]Ordered By: CANDICE Cody on 37-07-5779SPO (Bld) [#/Vol]9.1 10*3/uL3.8-11.6FParkwood HospitalAmphetamine Screen Ql (U)Ordered By: CANDICE Cody on 65-21-0120Pixffxaohcba Ql (U)NegativeNegMorrow County HospitalAutomated erythrocytes count in urine sediment (number/area)Ordered By: CANDICE Cody on 42-18-7906EHE Auto (Urine sed) [#/Area]3-4 [HPF]0-4 [facility] HospitalAutomated leukocytes count in urine sediment (number/area)Ordered By: CANDICE Cody on 34-31-2621HRY Auto (Urine sed) [#/Area]50-100 [HPF]0-4FParkwood HospitalBarbiturates [Presence] in UrineOrdered By: CANDICE Cody on 56-63-4192Bijpgduefext Ql (U) NegativeNegMorrow County HospitalBenzodiazepines [Presence] in UrineOrdered By: CANDICE Cody on 88-32-9989Bkpvbmljqlaxutq Ql (U) NegativeNegMorrow County HospitalBilirubin Test strip Ql (U) Ordered By: CANDICE Cody on 41-52-4904Kqdyqtdzd Ql (U)NegativeNegative [facility] HospitalColor Auto (U)Ordered By: CANDICE Cody on 28-79-7012Fxuve (U)YellowYellowTrihealth Good Samaritan HospitalKetones Auto test strip (U) [Mass/Vol]Ordered By: CANDICE Cody on 19-05-4095Petkuyk (U) [Mass/Vol]NegativeNegativeTrihealth Good Samaritan HospitalLaboratory - Drug toxicologyOrdered By: CANDICE Cody on 68-44-3132Bpiunkk Ql (U)Negative NegativeTrihealth Good Samaritan HospitalLaboratory - UrinalysisOrdered By: JASON Cody on 21-02-4384Saxtkcj casts LM Ql (Urine sed)0-8 [LPF]0-8 [facility] HospitalNitrite Test strip Ql (U)Ordered By: CANDICE Cody on 63-91-0823Ztrhjys Ql (U)NegativeNegMorrow County HospitalPhencyclidine Screen Ql (U)Ordered By: CANDICE Cody on 22-88-7838Awckigffzymjb Ql (U)NegativeNegMorrow County Hospital Comment on above:These are unconfirmed results and should not be used for legal purposes. Drug Cut-Off Concentration: AMPH 1000 ng/mL BOO 200 ng/mL HELGA 200 ng/mL COCM 300 ng/mL OP 300 ng/mL PCP 25 ng/mLProtein Auto test strip (U) [Mass/Vol]Ordered By: CANDICE Cody on 58-27-7082Jebxxie (U) [Mass/Vol] NegativeNegThe Jewish Hospitalpecific gravity Auto test strip (U) [Rel density]Ordered By: CANDICE Cody on 41-90-2583Ulgyhoco gravity (U) [Rel density]1.0141.001-1.030[facility] Squamous epithelial cells detection in urine sediment by light microscopyOrdered By: CANDICE Cody on 16-98-3462Xklhjzjkdh cells.squamous LM Ql (Urine sed)5-9 [HPF]0-2FParkwood HospitalUrine bacteria detection by automated methodOrdered By: CANDICE Cody on 42-75-9164Kaobfeao Auto Ql (U)None seenNone [facility] SouthUrine clarity by refractometry automatedOrdered By: CANDICE Cody on 94-22-6700Rgtztsd Refractometry automated (U)CloudyClearFParkwood HospitalUrine cocaine detectionOrdered By: CANDICE Cody on 11-29-6468Yjpogvl Ql (U) NegativeNegMorrow County HospitalUrine culture routineOrdered By: CANDICE Cody on 00-41-6388Hpoxoyuj identified Cx Nom (U)2 Days [facility] HospitalBacteria identified Cx Nom (U)2 DaysTrihealth Good Samaritan HospitalUrine glucose measurement by automated test strip (mass/volume)Ordered By: CANDICE Cody on 18-61-2508Hthynvi Auto test strip (U) [Mass/Vol]Normal mg/dLNormPremier Health Miami Valley Hospital SouthUrine hemoglobin detection by automated test stripOrdered By: CANDICE Cody on 35-33-4996Uztscjbkyh Auto test strip Ql (U)NegativeNegativeTrihealth Good Samaritan HospitalUrine leukocyte esterase detection by automated test stripOrdered By: CANDICE Cody on 92-26-9351Todgwfnqi esterase Auto test strip Ql (U) 4+NegativeTrihealth Good Samaritan HospitalUrobilinogen Auto test strip (U) [Mass/Vol]Ordered By: CANDICE Cody on 95-12-4590Krmbzehzkdsz (U) [Mass/Vol]Normal mg/dLNormalTrihealth Good Samaritan HospitalpH Auto test strip (U)Ordered By: CANDICE Cody on 32-58-8769jS (U)5.5 [pH]5.0-9.0[facility]. agalactiae Org specific cx Ql (Unsp spec)Ordered By: Urbano Palma on 21-79-9023Najdf B Streptococcus CultureStrep. agalactiae Grp B [facility] HospitalGroup B Streptococcus CultureStrep. 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 Personal review of ECG and cardiac data [...] AHA (more content not included)...NormalUH TouchworksTobacco Screening.on 07-93-0687Hnos risk assessmenta) No falls within the last yearMP-[facility] Work Phone: Tobacco use status CPHSb) NoMP-[facility] Work Phone: Tobacco Screening.YesMP-[facility] DO Work Phone: Amphetamine Screen Ql (U)Ordered By: Michael Cerda on 58-44-6294Kngmgnjyumnn Ql (U)NegativeNegMorrow County Hospital Automated erythrocytes count in urine sediment (number/area)Ordered By: Michael Cerda on 94-29-1970ASL Auto (Urine sed) [#/Area]0-1 [HPF]0-4FParkwood HospitalAutomated leukocytes count in urine sediment (number/area)Ordered By: Michael Cerda on 63-50-7525TMV Auto (Urine sed) [#/Area]50-100 [HPF]0-4 [facility] HospitalBarbiturates [Presence] in UrineOrdered By: Michael Cerda on 58-23-5383Nlfdnesxeszf Ql (U)NegativeNegMorrow County HospitalBasophils Auto (Bld) [#/Vol]Ordered By: Michael Cerda on 07-15-2022 Basophils (Bld) [#/Vol]0.0 10*3/uL0.0-0.2FParkwood Hospital Basophils/100 WBC Auto (Bld)Ordered By: Michael Cerda on 49-01-8410Prjfgnfqk/100 WBC (Bld)0.4 %.[facility] HospitalBenzodiazepines [Presence] in UrineOrdered By: Michael Cerda on 39-46-0422Homswiknklihasq Ql (U)Negative NegativeTrihealth Good Samaritan HospitalBilirubin Test strip Ql (U)Ordered By: Michael Cerda on 91-82-5885Nouwefpci Ql (U)NegativeNegMorrow County HospitalBody fluid albumin measurement (mass/volume)Ordered By: Michael Cerda on 36-65-5253Nzzbvhm (Body fld) [Mass/Vol]2.9 g/dL3.2-5.5FParkwood HospitalCannabinoids [Presence] in Urine by Screen methodOrdered By: Michael Cerda on 39-12-1357Uxgzgycoawfg Screen Ql (U)NegativeNegMorrow County HospitalComment on above:These are unconfirmed results and should not be used for legal purposes. Drug Cut-Off Concentration: AMPH 1000 ng/mL BOO 200 ng/mL HELGA 200 ng/mL COCM 300 ng/mL OP 300 ng/mL PCP 25 ng/mL THC 20 ng/mLCholesterol [Mass/volume] in Serum or PlasmaOrdered By: Eduardo Swain on 35-20-3003Deiajvhefma [Mass/Vol]250 mg/kF855-993OrfozbwjkTrihealth Good Samaritan HospitalComment on above:Chol less than 200 mg/dl low riskChol 201-239 mg/dl borderline riskChol 240 mg/dl and greater high riskCholesterol in LDL Calc [Mass/Vol]Ordered By: Eduardo Swain on 13-97-5878Etwruqjlyqq in LDL [Mass/Vol] 138 mg/dL0-100[facility]itan HospitalComment on above:LDL ATP III CLASSIFICATIONLDL less than 100 mg/dL OptimalLDL 100-129 mg/dL Near or above kwlwhvfPJA607-925 mg/dL Borderline highLDL 160-189 mg/dL HighLDL greater than 189 mg/dL Very highCholesterol in VLDL Calc [Mass/Vol]Ordered By: Eduardo Swain on 17-90-6123Kngdrorpzdn in VLDL [Mass/Vol]40 mg/dLTrihealth Good Samaritan HospitalColor Auto (U)Ordered By: Michael Cerda on 33-92-5018Delal (U)YellowYellow [facility] HospitalCreatinine and Glomerular filtration rate.predicted panel (S/P/Bld)Ordered By: Michael Cerda on 68-82-1746Xkztuaeezq [Mass/Vol]0.66 mg/dL0.44-1.03[facility] HospitalEosinophils Auto (Bld) [#/Vol]Ordered By: Michael Cerda on 59-11-4288Xnnqqpweujg (Bld) [#/Vol]0.0 10*3/uL0.0-0.45[facility] HospitalEosinophils/100 WBC Auto (Bld) Ordered By: Michael Cerda on 81-71-3708Tgdbhucwvpz/100 WBC (Bld)0.4 %.[facility] HospitalErythrocyte distribution width Auto (RBC) [Ratio]Ordered By: Michael Cerda on 78-31-7173Yzyikhxhbtm distribution width (RBC) [Ratio]18.8 % 11.9-15.3[facility] Medical CenterEstimated glomerular filtration rate (GFR) non- AmericanOrdered By: Michael Cerda on 60-99-1474YNI/1.73 sq M.predicted among non-blacks MDRD (S/P/Bld) [Vol rate/Area]> 60 mL/MinTrihealth Good Samaritan HospitalGlobulin Calc (S) [Mass/Vol]Ordered By: Michael Cerda on 94-57-7840Djjomoxx (S) [Mass/Vol]3.2 g/dLTrihealth Good Samaritan Hospital Hematocrit Auto (Bld) [Volume fraction]Ordered By: Michael Cerda on 07-15-2022 Hematocrit (Bld) [Volume fraction]34.4 %34.0-46.4FParkwood HospitalHemoglobin [Mass/volume] in BloodOrdered By: Michael Cerda on 07-15-2022 Hemoglobin (Bld) [Mass/Vol]11.3 g/dL11.8-15.4FParkwood Hospital Ketones Auto test strip (U) [Mass/Vol]Ordered By: Michael Cerda on 07-15-2022 Ketones (U) [Mass/Vol]2+NegativeTrihealth Good Samaritan HospitalLaboratory - Drug toxicologyOrdered By: Michael Cerda on 39-56-0912Gawdlwv Ql (U)Negative NegativeTrihealth Good Samaritan HospitalLaboratory - UrinalysisOrdered By: Michael Cerda on 04-44-0668Wuhdgoa casts LM Ql (Urine sed)0-8 [LPF]0-8[facility] HospitalLeukocytes [#/volume] corrected for nucleated erythrocytes in Blood by Automated counOrdered By: Michael Cerda on 56-93-1464ENJ corrected for nucl RBC Auto (Bld) [#/Vol]7.8 10*3/uL3.8-11.6FParkwood HospitalLymphocytes Auto (Bld) [#/Vol]Ordered By: Michael Cerda on 22-01-8826Qbsplatfaxv (Bld) [#/Vol]1.2 10*3/uL1.00-4.8[facility] HospitalLymphocytes/100 WBC Auto (Bld)Ordered By: Michael Cerda on 07-15-2022 Lymphocytes/100 WBC (Bld)15.2 %.[facility] HospitalMCH Auto (RBC) [Entitic mass]Ordered By: Michael Cerda on 55-78-5896QUO (RBC) [Entitic mass]31.8 pg24.7-34.3FParkwood HospitalMCHC Auto (RBC) [Mass/Vol]Ordered By: Michael Cerda on 63-62-7523WKFE (RBC) [Mass/Vol]33.0 g/dL32.0-35.0[facility] HospitalMCV Auto (RBC) [Entitic vol]Ordered By: Michael Cerda on 93-01-0256WXO (RBC) [Entitic vol]96.4 nO93-012FmfcxebqwTrihealth Good Samaritan Hospital Monocyte distribution width [Entitic volume] in Blood by AutomatedOrdered By: Michael Cerda on 68-81-2862Iqybrzhp distribution width Auto (Bld) [Entitic vol] 19.01 %0.00-20.00[facility] HospitalMonocytes Auto (Bld) [#/Vol] Ordered By: Michael Cerda on 62-48-6819Eazpfafji (Bld) [#/Vol]0.4 10*3/uL0.0-0.8 [facility] HospitalMonocytes/100 WBC Auto (Bld)Ordered By: Michael Cerda on 10-40-2914Yubpvjqji/100 WBC (Bld)5.1 %.[facility] HospitalNeutrophils Auto (Bld) [#/Vol]Ordered By: Michael Cerda on 07-15-2022 Neutrophils (Bld) [#/Vol]6.1 10*3/uL1.8-7.7FParkwood Hospital Neutrophils/100 WBC Auto (Bld)Ordered By: Michael Cerda on 07-15-2022 Neutrophils/100 WBC (Bld)78.9 %.[facility]itan HospitalNitrite Test strip Ql (U)Ordered By: Michael Cerda on 72-28-4766Kwsnfvh Ql (U)NegativeNegative [facility] HospitalNo Panel InformationOrdered By: dEuardo Swain on 26-92-032949402327-Agabjyh Vitamin D Total38.8 ng/aO74-868XvhxrpwgaTrihealth Good Samaritan HospitalComment on above:VITAMIN D STATUS 25(OH)VITAMIN D RANGE (ng/mL) Deficient <20 Insufficient 20 to <29Lndezydjnz10 to 100Reference: Franklyn MF,Benjamin GRAF, Andreina MARQUEZ, et al. Evaluation,treatment, and prevention of vitamin D deficiency; an Endocrine Society clinical practice guideline. JCEM. 2010; 96(7):1911-30.No Panel InformationOrdered By: Michael Cerda on 99-27-5268Uabhesqwo GFR ()> 60 mL/MinTrihealth Good Samaritan HospitalComment on above:GFR estimated reference range: According to KDOQI guidelines, <60 ml/min/1.73m2 is sufficient todiagnose a patient with chronic kidney disease.Pharmacy Creatinine Clearance (Gdlu740.00[facility] HospitalNucleated erythrocytes [Presence] in Blood by Automated count Ordered By: Michael Cerda on 44-85-8976Bcijcfuav RBC Auto Ql (Bld)0.1 /100{WBC} 0-0.5FParkwood HospitalPhencyclidine Screen Ql (U)Ordered By: Michael Cerda on 51-90-3326Nsntlukpfppai Ql (U)NegativeNegativeTrihealth Good Samaritan HospitalPlatelet mean volume Auto (Bld) [Entitic vol]Ordered By: Michael Cerda on 51-11-0296Nvautgsp mean volume (Bld) [Entitic vol]7.9 fL6.3-10.7 [facility]itan HospitalPlatelets Auto (Bld) [#/Vol]Ordered By: Michael Cerda on 47-87-0103Jbynplaft (Bld) [#/Vol]157 10*3/lP727-320JrnlcwscjTrihealth Good Samaritan HospitalProtein Auto test strip (U) [Mass/Vol]Ordered By: Michael Cerda on 00-17-3958Qhrlugk (U) [Mass/Vol]NegativeNegativeTrihealth Good Samaritan HospitalProtein [Mass/volume] in Serum or PlasmaOrdered By: Michael Cerda on 87-87-2980Tqloczk [Mass/Vol]6.1 g/dL6.1-7.9[facility] HospitalRBC Auto (Bld) [#/Vol]Ordered By: Michael Cerda on 45-30-1695HKK (Bld) [#/Vol]3.57 10*6/uL3.60-5.00[facility] Centererum or plasma alanine aminotransferase measurement without P-5'-P (enzymatic activiOrdered By: Michael Cerda on 43-29-7328EJQ No additional P-5'-P [Catalytic activity/Vol]14 U/L10-60 [facility] Centererum or plasma albumin/globulin mass ratio Ordered By: Michael Cerda on 71-60-8724Ohwsrfb/Globulin [Mass ratio]0.9 {ratio} [facility] Centererum or plasma alkaline phosphatase measurement (enzymatic activity/volume)Ordered By: Michael Cerda on 18-80-5277NMK [Catalytic activity/Vol]83 U/T72-43FpvrhqixzAshtabula County Medical Centererum or plasma anion gap determinationOrdered By: Michael Cerda on 40-05-7023Qracz gap [Moles/Vol]13.3 mmol/L6.0-15.0[facility] Centererum or plasma aspartate aminotransferase measurement (enzymatic activity/volume)Ordered By: Michael Cerda on 37-81-5783OEA [Catalytic activity/Vol]22 U/W41-19PleptzrmoAshtabula County Medical Centererum or plasma calcium measurement (mass/volume)Ordered By: Michael Cerda on 41-59-0007Xpxzywy [Mass/Vol]9.5 mg/dL8.2-10.2FSamaritan Hospitalerum or plasma chloride measurement (moles/volume) Ordered By: Michael Cerda on 96-16-1794Sslkcvtr [Moles/Vol]104 mmol/L95-114 [facility] Centererum or plasma ethanol measurement (mass/volume)Ordered By: Michael Cerda on 58-59-7856Vgsgjar [Mass/Vol]mg/dL [facility] HospitalEthanol [Mass/Vol]TNPTrihealth Good Samaritan HospitalComment on above:Test not performedSerum or plasma glucose measurement (mass/volume)Ordered By: Michael Cerda on 31-57-8248Zvksdfy [Mass/Vol]82 mg/dL 70-100[facility] HospitalComment on above:ADA recommended reference rangeRandom Glucose Reference Range is dependent on time and content of last meal. Glucose of more than 200 mg/dL in a nonstressed, ambulatory subject supports the diagnosisof Diabetes Mellitus.Serum or plasma high density lipoprotein (HDL) cholesterol measurementOrdered By: Eduardo Swain on 19-55-5041Tzhajvklxmv in HDL [Mass/Vol]72 mg/eL99-28OsqnkqlicTrihealth Good Samaritan HospitalComment on above:HDL CHOL ATP-III CLASSIFICATION Cardiovascular RiskHDL > or equal to 60 mg/dL LOWHDL < 40 mg/dL HIGHSerum or plasma potassium measurement (moles/volume)Ordered By: Michael Cerda on 10-55-5384Himqqzhep [Moles/Vol]3.6 mmol/L3.5-5.1FSamaritan Hospitalerum or plasma sodium measurement (moles/volume)Ordered By: Michael Cerda on 89-67-7114Eqexqi [Moles/Vol]135 mmol/C444-262NafrevgluAshtabula County Medical Centererum or plasma total bilirubin measurement (mass/volume)Ordered By: Michael Cerda on 83-00-3838Zvhkaiyxa [Mass/Vol]0.6 mg/dL0.3-1.2FSamaritan Hospitalerum or plasma total carbon dioxide measurement (moles/volume)Ordered By: Michael Cerda on 07-15-2022 CO2 [Moles/Vol]21.3 mmol/L22.0-30.0[facility] Centererum or plasma total cholesterol/high density lipoprotein (HDL) cholesterol mass rat Ordered By: Eduardo Swain on 27-21-6337Cjcqdstvruv.total/Cholesterol in HDL [Mass ratio]3.5 {ratio}<5.0[facility] Centererum or plasma urea nitrogen measurement (mass/volume)Ordered By: Michael Cerda on 12-88-8842Uvek nitrogen [Mass/Vol]4 mg/dL9-23[facility] Centerpecific gravity Auto test strip (U) [Rel density]Ordered By: Michael Cerda on 27-94-8504Ilfkgnhm gravity (U) [Rel density]1.0101.001-1.030[facility] Squamous epithelial cells detection in urine sediment by light microscopyOrdered By: Michael Cerda on 21-99-6786Csgvqpgjwj cells.squamous LM Ql (Urine sed)5-9 [HPF]0-2FParkwood HospitalTSH DL <= 0.005 mIU/L QnOrdered By: Eduardo Swain on 86-77-8036FRR Qn2.04 m[IU]/L0.45-5.33[facility] HospitalTriglyceride [Mass/volume] in Serum or PlasmaOrdered By: Eduardo Swain on 59-40-8287Odkahffvtyqg [Mass/Vol]200 mg/kO81-047SgtdysdvqTrihealth Good Samaritan HospitalComment on above:TRIG ATP III CLASSIFICATIONTRIG less than 150 mg/dL NormalTRIG 150-199 mg/dL Borderline highTRIG 200-500 mg/dL High TRIG greater than 500 mg/dL Very highStandard traceable to the Center for Disease Co nrtrol and Prevention (CDC) test method.Urine bacteria detection by automated methodOrdered By: Michael Cerda on 48-26-9710Kywzwhbh Auto Ql (U)None seenNone SeenTrihealth Good Samaritan HospitalUrine clarity by refractometry automated Ordered By: Michael Cerda on 73-88-2437Aempscz Refractometry automated (U)Cloudy ClearTrihealth Good Samaritan HospitalUrine cocaine detectionOrdered By: Michael Cerda on 92-64-1476Eoscmgo Ql (U)NegativeNegativeTrihealth Good Samaritan HospitalUrine culture routineOrdered By: Michael Cerda on 17-51-4466Ksbucxkr identified Cx Nom (U)2 DaysTrihealth Good Samaritan HospitalUrine glucose measurement by automated test strip (mass/volume)Ordered By: Michael Cerda on 38-00-1209Jkbrrkk Auto test strip (U) [Mass/Vol]Normal mg/dLNormalTrihealth Good Samaritan HospitalUrine hemoglobin detection by automated test stripOrdered By: Michael Cerda on 58-81-6936Zihxxbugen Auto test strip Ql (U)NegativeNegSelect Medical Specialty Hospital - AkronUrine leukocyte esterase detection by automated test stripOrdered By: Michael Cerda on 26-20-4218Aztlrqdwi esterase Auto test strip Ql (U)4+NegativeTrihealth Good Samaritan HospitalUrobilinogen Auto test strip (U) [Mass/Vol]Ordered By: Michael Cerda on 45-80-0449Coxxsfjnwpew (U) [Mass/Vol]Normal mg/dLNormalTrihealth Good Samaritan HospitalWBC Auto (Bld) [#/Vol]Ordered By: Michael Cerda on 35-50-1790TUB (Bld) [#/Vol]7.8 10*3/uL 3.8-11.6FParkwood HospitalpH Auto test strip (U)Ordered By: Michael Cerda on 72-97-8292tA (U)5.5 [pH]5.0-9.0[facility] Basophils Auto (Bld) [#/Vol]Ordered By: Urbano Palma on 27-09-3206Sbjkbvzml (Bld) [#/Vol]0.0 10*3/uL0.0-0.2FParkwood HospitalBasophils/100 WBC Auto (Bld)Ordered By: Urbano Palma on 25-29-5376Iunaxoeqs/100 WBC (Bld)0.4 %.[facility]itan HospitalEosinophils Auto (Bld) [#/Vol]Ordered By: Urbano Palma on 26-29-4308Ovlnkwpvgjr (Bld) [#/Vol]0.1 10*3/uL0.0-0.45[facility] HospitalEosinophils/100 WBC Auto (Bld)Ordered By: Urbano Palma on 61-37-4413Xjwwdheijmq/100 WBC (Bld)1.0 %.[facility] Erythrocyte distribution width Auto (RBC) [Ratio]Ordered By: Urbano Palma on 60-84-8421Fpbsrlvgkar distribution width (RBC) [Ratio]19.0 %11.9-15.3FParkwood HospitalHematocrit Auto (Bld) [Volume fraction]Ordered By: Urbano Palma on 46-11-7361Gcavjinzus (Bld) [Volume fraction]37.4 %34.0-46.4 [facility] HospitalHemoglobin [Mass/volume] in BloodOrdered By: Urbano Palma on 60-64-2884Bxdvmzopsx (Bld) [Mass/Vol]12.2 g/dL11.8-15.4 [facility] HospitalLeukocytes [#/volume] corrected for nucleated erythrocytes in Blood by Automated counOrdered By: Urbano Palma on 07-09-2022 WBC corrected for nucl RBC Auto (Bld) [#/Vol]8.1 10*3/uL3.8-11.6FParkwood HospitalLymphocytes Auto (Bld) [#/Vol]Ordered By: Urbano Palma on 37-63-6927Ptklbzaupuz (Bld) [#/Vol]1.2 10*3/uL1.00-4.8[facility] HospitalLymphocytes/100 WBC Auto (Bld)Ordered By: Urbano Palma on 82-32-6120Bjlubiryqac/100 WBC (Bld)14.9 %.[facility] Auto (RBC) [Entitic mass]Ordered By: Urbano Palma on 22-78-6818FNG (RBC) [Entitic mass]31.4 pg24.7-34.3FParkwood HospitalMCHC Auto (RBC) [Mass/Vol]Ordered By: Urbano Palma on 54-08-6195HDYI (RBC) [Mass/Vol]32.7 g/dL 32.0-35.0[facility] HospitalMCV Auto (RBC) [Entitic vol]Ordered By: Urbano Palma on 40-64-8351PGN (RBC) [Entitic vol]95.8 nS71-285XedquoinuTrihealth Good Samaritan HospitalMonocytes Auto (Bld) [#/Vol]Ordered By: Urbano Palma on 20-71-2085Fgnjwjfww (Bld) [#/Vol]0.4 10*3/uL0.0-0.8[facility] HospitalMonocytes/100 WBC Auto (Bld)Ordered By: Urbano Palma on 07-09-2022 Monocytes/100 WBC (Bld)5.1 %.[facility]itan HospitalNeutrophils Auto (Bld) [#/Vol]Ordered By: Urbano Palma on 82-96-5749Zvuefilheuu (Bld) [#/Vol]6.3 10*3/uL1.8-7.7FParkwood HospitalNeutrophils/100 WBC Auto (Bld) Ordered By: Urbano Palma on 45-53-9178Izobhjwqwzu/100 WBC (Bld)78.6 %.[facility]itan HospitalNucleated erythrocytes [Presence] in Blood by Automated countOrdered By: Urbano Palma on 86-33-4865Wwrqdesoe RBC Auto Ql (Bld)0.1 /100{WBC}0-0.5FParkwood HospitalPlatelet mean volume Auto (Bld) [Entitic vol]Ordered By: Urbano Palma on 04-23-0984Rburnlgh mean volume (Bld) [Entitic vol]8.2 fL6.3-10.7FParkwood HospitalPlatelets Auto (Bld) [#/Vol]Ordered By: Urbano Palma on 53-20-6854Pkfxpatbl (Bld) [#/Vol]180 10*3/uL 150-450Tri[facility] Samaritan HospitalRBC Auto (Bld) [#/Vol]Ordered By: Urbano Palma on 44-84-3346TJE (Bld) [#/Vol]3.91 10*6/uL3.60-5.00[facility] HospitalWBC Auto (Bld) [#/Vol]Ordered By: Urbano Palma on 19-96-0585HHR (Bld) [#/Vol]8.1 10*3/uL3.8-11.6FParkwood Hospital Serum or plasma glucose tolerance 3 hours panelOrdered By: Urbano Palma on 52-01-3368Pzgbocm tolerance 3 hours panelSee commentTrihealth Good Samaritan HospitalComment on above:FASTING 82 Col: 06/30/22 0616 1HR GLU 215 Col: 06/30/22 0800 2HR GLU 194 Col: 06/30/22 0901 3HR GLU71 Col: 06/30/22 1000Amphetamine Screen Ql (U)Ordered By: DELANEY VARGAS on 53-38-0865Emazvngxheer Ql (U) NegativeNegativeTrihealth Good Samaritan HospitalAutomated erythrocytes count in urine sediment (number/area)Ordered By: DELANEY VARGAS on 45-57-1357SLY Auto (Urine sed) [#/Area]1-2 [HPF]0-4FParkwood HospitalAutomated leukocytes count in urine sediment (number/area)Ordered By: DELANEY VARGAS on 25-37-6672ZBT Auto (Urine sed) [#/Area]50-100 [HPF]0-4FParkwood HospitalAutomated urine hyaline casts count (number/volume)Ordered By: DELANEY VARGAS on 08-25-8561Ppwjblx casts Auto (U) [#/Vol]None seen [LPF]0-1 [facility]itan HospitalAutomated urine sediment calcium oxalate crystal count by microscopy (number/high powOrdered By: DELANEY VARGAS on 63-40-6280Vzssvog oxalate crystals LM.HPF (Urine sed) [#/Area]3+ [HPF][facility] HospitalBarbiturates [Presence] in UrineOrdered By: DELANEY VARGAS on 81-09-8066Hhgdlqyqbopm Ql (U)NegativeNegativeTrihealth Good Samaritan HospitalBenzodiazepines [Presence] in UrineOrdered By: DELANEY VARGAS on 83-89-7366Omvgjesqzbyqmsq Ql (U)NegativeNegMorrow County HospitalBilirubin Test strip Ql (U)Ordered By: DELANEY VARGAS on 06-26-2022 Bilirubin Ql (U)1+NegativeTrihealth Good Samaritan HospitalColor Auto (U)Ordered By: DELANEY VARGAS on 64-79-1045Kfllt (U)Dark yellowYellowTrihealth Good Samaritan HospitalFetal fibronectinOrdered By: DELANEY VARGAS on 06-26-2022 Fibronectin. (Vag fld) [Mass/Vol]NegativeNegativeTrihealth Good Samaritan HospitalKetones Auto test strip (U) [Mass/Vol]Ordered By: DELANEY VARGAS on 21-73-2209Hylcfng (U) [Mass/Vol]1+NegativeTrihealth Good Samaritan Hospital Laboratory - Drug toxicologyOrdered By: DELANEY VARGAS on 90-40-5075Yiequpx Ql (U)NegativeNegativeTrihealth Good Samaritan HospitalNitrite Test strip Ql (U) Ordered By: DELANEY VARGAS on 60-39-5539Rhmdhbg Ql (U)NegativeNegative [facility] HospitalNo Panel InformationOrdered By: DELANEY VARGAS on 38-86-9377Rjptn Membranes Rupture (PAMG-1)NegativeNegative [facility] HospitalPhencyclidine Screen Ql (U)Ordered By: DELANEY VARGAS on 68-21-0281Onmrfjwrceolc Ql (U)NegativeNegMorrow County HospitalComment on above:These are unconfirmed results and should not be used for legal purposes. Drug Cut-Off Concentration: AMPH 1000 ng/mL BOO 200 ng/mL HELGA 200 ng/mL COCM 300 ng/mL OP 300 ng/mL PCP 25 ng/mLProtein Auto test strip (U) [Mass/Vol]Ordered By: DELANEY VARGAS on 01-06-8965Yedyugf (U) [Mass/Vol]30 mg/dLNegThe Jewish Hospitalpecific gravity Auto test strip (U) [Rel density]Ordered By: DELANEY VARGAS on 23-99-3895Bvpqkcma gravity (U) [Rel density]1.0291.001-1.030[facility] Squamous epithelial cells detection in urine sediment by light microscopyOrdered By: DELANEY VARGAS on 13-18-3747Flegvewanp cells.squamous LM Ql (Urine sed)5-9 [HPF]0-2FParkwood HospitalUrine bacteria detection by automated methodOrdered By: DELANEY VARGAS on 79-94-0038Urlnpfum Auto Ql (U)None seen None SeenTrihealth Good Samaritan HospitalUrine clarity by refractometry automatedOrdered By: DELANEY VARGAS on 77-64-7272Fokyksg Refractometry automated (U)TurbidCleMercy HospitalUrine cocaine detection Ordered By: DELANEY VARGAS on 41-27-6575Snvjjbx Ql (U)NegativeNegSelect Medical Specialty Hospital - AkronUrine culture routineOrdered By: DELANEY VARGAS on 12-65-8563Qyfzqjvt identified Cx Nom (U)Cinthya albicansTrihealth Good Samaritan HospitalUrine glucose measurement by automated test strip (mass/volume)Ordered By: DELANEY VARGAS on 09-94-9633Lmgztgb Auto test strip (U) [Mass/Vol]Normal mg/dLNormalTrihealth Good Samaritan HospitalUrine hemoglobin detection by automated test stripOrdered By: DELANEY VARGAS on [id number] Auto test strip Ql (U)NegativeNegMorrow County HospitalUrine leukocyte esterase detection by automated test stripOrdered By: DELANEY VARGAS on [id number] esterase Auto test strip Ql (U)3+ NegativeTrihealth Good Samaritan HospitalUrine sediment crystal identification by light microscopyOrdered By: DELANEY VARGAS on [id number] LM Nom (Urine sed)None seen [HPF][facility] HospitalUrobilinogen Auto test strip (U) [Mass/Vol]Ordered By: DELANEY VARGAS on 00-54-0867Ytwqfucfqvlz (U) [Mass/Vol]Normal mg/dLNormalTrihealth Good Samaritan HospitalYeast detection in urine sediment by light microscopyOrdered By: DELANEY VARGAS on 06-26-2022 Yeast LM Ql (Urine sed)2+ [HPF]None SeenTrihealth Good Samaritan HospitalpH Auto test strip (U)Ordered By: DELANEY VARGAS on 67-28-8719dO (U)5.5 [pH]5.0-9.0 [facility] HospitalAutomated erythrocytes count in urine sediment (number/area)Ordered By: Michael Cerda on 68-88-8054UPS Auto (Urine sed) [#/Area] 3-4 [HPF]0-4FParkwood HospitalAutomated leukocytes count in urine sediment (number/area)Ordered By: Michael Cerda on 95-11-4727VMO Auto (Urine sed) [#/Area]Innumerable [HPF]0-4FParkwood HospitalBasophils Auto (Bld) [#/Vol]Ordered By: PROVIDER TEMP on 04-83-3122Qynlwfzuk (Bld) [#/Vol]0.0 10*3/uL0.0-0.2FParkwood HospitalBasophils/100 WBC Auto (Bld) Ordered By: PROVIDER TEMP on 21-20-0082Lbplxiltv/100 WBC (Bld)0.1 %.[facility] HospitalBilirubin Test strip Ql (U)Ordered By: Michael Cerda on 90-08-6127Nchehopof Ql (U)NegativeNegativeTrihealth Good Samaritan HospitalBody fluid albumin measurement (mass/volume)Ordered By: PROVIDER TEMP on 06-25-2022 Albumin (Body fld) [Mass/Vol]2.7 g/dL3.2-5.5FParkwood Hospital Casts typing in urine sediment by light microscopyOrdered By: Michael Cerda on 39-60-0690Scnjf LM Nom (Urine sed)None seen [LPF]None SeenTrihealth Good Samaritan HospitalColor Auto (U)Ordered By: Michael Cerda on 53-84-7933Qtcyw (U) YellowYellowTrihealth Good Samaritan HospitalCreatinine and Glomerular filtration rate.predicted panel (S/P/Bld)Ordered By: PROVIDER TEMP on 06-25-2022 Creatinine [Mass/Vol]0.64 mg/dL0.44-1.03[facility] Eosinophils Auto (Bld) [#/Vol]Ordered By: PROVIDER TEMP on 65-13-5587Pwkfdtcfivu (Bld) [#/Vol]0.1 10*3/uL0.0-0.45[facility] Eosinophils/100 WBC Auto (Bld)Ordered By: PROVIDER TEMP on 06-25-2022 Eosinophils/100 WBC (Bld)0.7 %.[facility] HospitalErythrocyte distribution width Auto (RBC) [Ratio]Ordered By: PROVIDER TEMP on 06-25-2022 Erythrocyte distribution width (RBC) [Ratio]16.1 %11.9-15.3FParkwood HospitalEstimated glomerular filtration rate (GFR) non- Ordered By: PROVIDER TEMP on 75-51-0123YEA/1.73 sq M.predicted among non-blacks MDRD (S/P/Bld) [Vol rate/Area]> 60 mL/MinTrihealth Good Samaritan Hospital Globulin Calc (S) [Mass/Vol]Ordered By: PROVIDER TEMP on 56-66-2717Kyyozqut (S) [Mass/Vol]3.3 g/dLTrihealth Good Samaritan HospitalHematocrit Auto (Bld) [Volume fraction]Ordered By: PROVIDER TEMP on 91-46-6131Gyogwyhhju (Bld) [Volume fraction]29.0 %34.0-46.4FParkwood HospitalHemoglobin [Mass/volume] in BloodOrdered By: PROVIDER TEMP on 34-82-6151Kkayakivcc (Bld) [Mass/Vol]9.9 g/dL11.8-15.4FParkwood HospitalKetones Auto test strip (U) [Mass/Vol]Ordered By: Michael Cerda on 13-43-7515Qnoybwb (U) [Mass/Vol] 4+NegativeTrihealth Good Samaritan HospitalLaboratory - UrinalysisOrdered By: Michael Cerda on 07-60-1140Bchxkvu casts LM Ql (Urine sed)0-1 [LPF]0-8[facility] HospitalLeukocytes [#/volume] corrected for nucleated erythrocytes in Blood by Automated counOrdered By: PROVIDER TEMP on 06-25-2022 WBC corrected for nucl RBC Auto (Bld) [#/Vol]10.5 10*3/uL3.8-11.6FParkwood HospitalLymphocytes Auto (Bld) [#/Vol]Ordered By: PROVIDER TEMP on 08-23-3656Wejldydpyij (Bld) [#/Vol]1.8 10*3/uL1.00-4.8[facility] HospitalLymphocytes/100 WBC Auto (Bld)Ordered By: PROVIDER TEMP on 48-70-4839Hrafiismdwo/100 WBC (Bld)16.7 %.[facility] Auto (RBC) [Entitic mass]Ordered By: PROVIDER TEMP on 53-17-0524DRQ (RBC) [Entitic mass]31.6 pg24.7-34.3FMercy HospitalHC Auto (RBC) [Mass/Vol]Ordered By: PROVIDER TEMP on 75-97-7506QSOD (RBC) [Mass/Vol]34.2 g/dL 32.0-35.0[facility] HospitalMCV Auto (RBC) [Entitic vol]Ordered By: PROVIDER TEMP on 59-69-5023SGM (RBC) [Entitic vol]92.4 qE17-659DjpklokpkTrihealth Good Samaritan HospitalMonocyte distribution width [Entitic volume] in Blood by AutomatedOrdered By: PROVIDER TEMP on 58-85-0865Nxpfrrek distribution width Auto (Bld) [Entitic vol]18.74 %0.00-20.00[facility] HospitalMonocytes Auto (Bld) [#/Vol]Ordered By: PROVIDER TEMP on 82-17-9697Ukzadamts (Bld) [#/Vol] 0.8 10*3/uL0.0-0.8[facility] HospitalMonocytes/100 WBC Auto (Bld) Ordered By: PROVIDER TEMP on 79-61-0172Wgoogyznv/100 WBC (Bld)7.5 %.[facility] HospitalNeutrophils Auto (Bld) [#/Vol]Ordered By: PROVIDER TEMP on 25-86-0450Tqogprkfsvl (Bld) [#/Vol]7.9 10*3/uL1.8-7.7FParkwood HospitalNeutrophils/100 WBC Auto (Bld)Ordered By: PROVIDER TEMP on 10-50-6503Bxtkbonyvee/100 WBC (Bld)75.0 %.[facility] Nitrite Test strip Ql (U)Ordered By: Michael Cerda on 57-79-1124Hlmulqy Ql (U) NegativeNegativeTrihealth Good Samaritan HospitalNo Panel InformationOrdered By: PROVIDER TEMP on 96-34-1161Hthbemwrn GFR ()> 60 mL/MinTrihealth Good Samaritan HospitalComment on above:GFR estimated reference range: According to KDOQI guidelines, <60 ml/min/1.73m2 is sufficient todiagnose a patient with chronic kidney disease.Pharmacy Creatinine Clearance (Qhjl822.48 [facility] HospitalNucleated erythrocytes [Presence] in Blood by Automated countOrdered By: PROVIDER TEMP on 58-97-8704Vljdozwgd RBC Auto Ql (Bld)0.3 /100{WBC}0-0.5FParkwood HospitalPlatelet mean volume Auto (Bld) [Entitic vol]Ordered By: PROVIDER TEMP on 56-95-0418Pxjfotfs mean volume (Bld) [Entitic vol]7.8 fL6.3-10.7FParkwood Hospital Platelets Auto (Bld) [#/Vol]Ordered By: PROVIDER TEMP on 07-90-3711Dwegftxrc (Bld) [#/Vol]182 10*3/zF296-548Wpzengicn Regional Medical CenterProtein Auto test strip (U) [Mass/Vol]Ordered By: Michael Cerda on 28-05-4947Fypsjdm (U) [Mass/Vol]Trace mg/dLNegativeTrihealth Good Samaritan HospitalProtein [Mass/volume] in Serum or PlasmaOrdered By: PROVIDER TEMP on 43-92-9065Rgfvdqg [Mass/Vol]6.0 g/dL6.1-7.9[facility] HospitalRBC Auto (Bld) [#/Vol] Ordered By: PROVIDER TEMP on 16-44-8369MNX (Bld) [#/Vol]3.14 10*6/uL3.60-5.00 [facility] Centererum or plasma alanine aminotransferase measurement without P-5'-P (enzymatic activiOrdered By: PROVIDER TEMP on 74-16-8264MLR No additional P-5'-P [Catalytic activity/Vol]10 U/R25-59XhrgutgdzAshtabula County Medical Centererum or plasma albumin/globulin mass ratioOrdered By: PROVIDER TEMP on 54-39-5765Rswuhiw/Globulin [Mass ratio]0.8 {ratio}[facility] Centererum or plasma alkaline phosphatase measurement (enzymatic activity/volume)Ordered By: PROVIDER TEMP on 58-11-5257LRN [Catalytic activity/Vol]77 U/V61-56ZwcfalnldAshtabula County Medical Centererum or plasma anion gap determinationOrdered By: PROVIDER TEMP on 14-65-5447Pcyqg gap [Moles/Vol] 15.1 mmol/L6.0-15.0[facility] Centererum or plasma aspartate aminotransferase measurement (enzymatic activity/volume)Ordered By: PROVIDER TEMP on 02-36-2425LUT [Catalytic activity/Vol]20 U/U83-79GjhhujkpqAshtabula County Medical Centererum or plasma calcium measurement (mass/volume)Ordered By: PROVIDER TEMP on 73-71-5854Dfhdicd [Mass/Vol]9.3 mg/dL8.2-10.2FSamaritan Hospitalerum or plasma chloride measurement (moles/volume)Ordered By: PROVIDER TEMP on 21-33-4147Ymmxrntr [Moles/Vol]107 mmol/O03-093EyghzvuneAshtabula County Medical Centererum or plasma glucose measurement (mass/volume)Ordered By: PROVIDER TEMP on 37-84-8829Xrdrmph [Mass/Vol]72 mg/vG59-651WtwtxpeqjTrihealth Good Samaritan HospitalComment on above:ADA recommended reference rangeRandom Glucose Reference Range is dependent on time and content of last meal. Glucose of more than 200 mg/dL in a nonstressed, ambulatory subject supports the diagnosisof Diabetes Mellitus.Serum or plasma potassium measurement (moles/volume)Ordered By: PROVIDER TEMP on 03-72-0697Vylzmnfdd [Moles/Vol]3.6 mmol/L3.5-5.1FSamaritan Hospitalerum or plasma sodium measurement (moles/volume)Ordered By: PROVIDER TEMP on 52-58-8208Qgtknt [Moles/Vol]137 mmol/W703-945VtpdqqhnxAshtabula County Medical Centererum or plasma total bilirubin measurement (mass/volume)Ordered By: PROVIDER TEMP on 62-52-5481Itpgferco [Mass/Vol]0.7 mg/dL0.3-1.2FSamaritan Hospitalerum or plasma total carbon dioxide measurement (moles/volume)Ordered By: PROVIDER TEMP on 34-41-6294YW4 [Moles/Vol]18.5 mmol/L22.0-30.0[facility] Serum or plasma urea nitrogen measurement (mass/volume)Ordered By: PROVIDER TEMP on 41-43-4567Nmwm nitrogen [Mass/Vol]3 mg/dL9-23[facility] Medical Centerpecific gravity Auto test strip (U) [Rel density]Ordered By: Michael Cerda on 61-64-8270Rhxzznwn gravity (U) [Rel density]1.0161.001-1.030[facility] Medical Centerquamous epithelial cells detection in urine sediment by light microscopyOrdered By: Michael Cerda on 93-25-1145Edaztwruwy cells.squamous LM Ql (Urine sed)10-19 [HPF]0-2FParkwood HospitalTroponin I.cardiac [Mass/volume] in Serum or Plasma by High sensitivity methodOrdered By: Michael Cerda on 07-92-8201Orwkmxxu I.cardiac High sensitivity method [Mass/Vol] 6 pg/mL0-15[facility] HospitalUrine bacteria detection by automated methodOrdered By: Michael Cerda on 16-88-1858Wacysigt Auto Ql (U)1+None SeenTrihealth Good Samaritan HospitalUrine clarity by refractometry automated Ordered By: Michael Cerda on 75-23-6576Surlsev Refractometry automated (U)Turbid ClearTrihealth Good Samaritan HospitalUrine culture routineOrdered By: Michael Cerda on 87-88-7868Hlhnwkrt identified Cx Nom (U)2 DaysTrihealth Good Samaritan HospitalUrine glucose measurement by automated test strip (mass/volume)Ordered By: Michael Cerda on 70-64-1785Vdilaob Auto test strip (U) [Mass/Vol]Normal mg/dL NormalTrihealth Good Samaritan HospitalUrine hemoglobin detection by automated test stripOrdered By: Michael Cerda on 52-68-1794Nnhksjntwp Auto test strip Ql (U)TraceNegativeTrihealth Good Samaritan HospitalUrine leukocyte esterase detection by automated test stripOrdered By: Michael Cerda on 52-55-5346Esxknytok esterase Auto test strip Ql (U)4+NegativeTrihealth Good Samaritan Hospital Urobilinogen Auto test strip (U) [Mass/Vol]Ordered By: Michael Cerda on 24-79-2014Ieumsonzhxzw (U) [Mass/Vol]Normal mg/dLNormalTrihealth Good Samaritan HospitalWBC Auto (Bld) [#/Vol]Ordered By: CIERA CARABALLO on 99-18-3010EAO (Bld) [#/Vol]10.5 10*3/uL3.8-11.6FParkwood HospitalYeast detection in urine sediment by light microscopyOrdered By: Michael Cerda on 81-16-8429Mpysf LM Ql (Urine sed)None seen [HPF]None SeenTrihealth Good Samaritan HospitalpH Auto test strip (U)Ordered By: Michael Cerda on 31-55-9137lI (U) 6.0 [pH]5.0-9.0[facility] HospitalGLUCOSE BLOODon 04-28-2022 Glucose [Mass/Vol]83 mg/kKQvvbon35-692JreKettering HealthComment on above: Performed By: #### GLUC, LIPID #### [facility] [address] [place] [address] Dr. Kinjal RiversLIPID PROFILEon 81-90-6303SVSR-HDL RATIO NORMSMount Carmel Health System on above:Result Comment: 3.3 - 4.4 LOW RISK 4.4 - 7.1 AVERAGE RISK 7.1 - 11.0 MODERATE RISK >11.0 HIGH RISKPerformed By: #### GLUC, LIPID #### [facility] [address] [place] [address] Dr. Kinjal RiversCholesterol [Mass/Vol]232 mg/dLCritically high<=200[facility] on above:Performed By: #### GLUC, LIPID #### [facility] [address] [place] [address] Dr. Kinjal RiversCholesterol in HDL [Mass/Vol]92 mg/dLCritically uwtq25-04MxdAdena Pike Medical Center on above:Performed By: #### GLUC, LIPID #### [facility] [address] [place] [address] Dr. Kinjal RiversCholesterol in LDL [Mass/Vol]115.2 mg/dLUniversity Hospitals Ahuja Medical Center on above:Performed By: #### GLUC, LIPID #### [facility] [address] [place] [address] Dr. Kinjal Amayaesterelizabeth.total/Cholesterol in HDL [Mass ratio]2.5 {ratio} NormalAdena Pike Medical Center on above:Performed By: #### GLUC, LIPID #### [facility] [address] [place] [address] Dr. Kinjal Huitron NORMAL> or = 60 mg/dl - LOW CARDIOVASCULAR RISK <40 mg/dl - HIGH CARDIOVASCULAR RISKUniversity Hospitals Ahuja Medical Center on above:Performed By: #### GLUC, LIPID #### [facility] [address] [place] [address] Dr. Kinjal RiversLDL CALC NORMALSEE Access [facility] DaytonCompromedica [facility] on above:Result Comment: <100 mg/dl OPTIMAL 100 - 129 mg/dl NEAR OR ABOVE OPTIMAL 130 - 159 mg/dl BORDERLINE HIGH 160 - 189 mg/dl HIGH >190 mg/dl VERY HIGH Performed By: #### GLUC, LIPID #### [facility] [address] [address] [address] Kinjal RiversTriglyceride [Mass/Vol]124 mg/dLNormal<=150[facility] Comment on above:Performed By: #### GLUC, LIPID #### [facility] [address] [address] [address] Kinjal RiversVLDL CALC24.8 mg/dLNormalThProtestant Deaconess HospitalComment on above: Performed By: #### GLUC, LIPID #### [facility] [address] [address] [address] Layton ChangEchocardiogramon 93-23-3592HecqmrrjbecnxdnfDeot[address], [address] [address] TRANSTHORACIC ECHOCARDIOGRAM REPORT Patient Name: MARICARMEN Murrieta Jocelin Physician: [id number] Tracee ANDERSON MD Study Date: 02/13/2022 Referring [id number] RITA OLIVIA Physician: MRN/PID: [id number] PCP: Viktor Bradford Accession/Order#: [id number] Department [facility] Location: Date of : 1980 Fellow: Gender: F Nurse: Admit Date: Java Sql Developer: Georgia Grajeda [facility] Height: 167.64 cm CC Report to: Weight: 102.97 kg Study Type: Echocardiogram BSA: 2.11 m2 Blood Pressure: 114 /70 mmHg Diagnosis/ICD: I47.1-Supraventricular tachycardia; R06.02-Shortness of breath; I49.5-Sick sinus syndrome Indication: Abnormal EKG-Complete Heart Block, Pacemaker, History of Syncope, Obesity, Seizure Disorder, Pt is 13 weeks Procedure/CPT: Echo Complete w Full Doppler-[id number] Study Detail: The following Echo studies were [...] 0.8 m/s (0.6-0.9m/s) PV Max P.9 mmHg [id number] Tracee Moore MD Electronically signed on 02/13/2022 at 5:36:08 PM Final NormalSt. [facility] ([place])EchocardiographyPlease click on the link to view the study imagesNormal[address] Work Phone: Falls Screening (Age 18+)on 14-07-3330Vtvi risk assessmenta) No falls within the last year[address] Work Phone: Urine culture routineOrdered By: Raymond Oconnor on 84-27-0734Eyfnghwr identified Cx Nom (U)2 DaysTrihealth Good Samaritan Hospital Albumin [Mass/volume] in Serum or PlasmaOrdered By: Raymond Oconnor on 01-20-2022 Albumin [Mass/Vol]3.4 g/dL3.2-5.5FParkwood HospitalAutomated erythrocytes count in urine sediment (number/area)Ordered By: Raymond Oconnor on 67-06-7001JEX Auto (Urine sed) [#/Area]3-4 [HPF]0-4FParkwood HospitalAutomated leukocytes count in urine sediment (number/area)Ordered By: Raymond Oconnor on 94-24-2613QUJ Auto (Urine sed) [#/Area]20-49 [HPF]0-4FParkwood HospitalAutomated urine sediment calcium oxalate crystal count by microscopy (number/high powOrdered By: Raymond Oconnor on 39-14-4833Owmagqf oxalate crystals LM.HPF (Urine sed) [#/Area]4+ [HPF][facility]aritan HospitalBasophils Auto (Bld) [#/Vol]Ordered By: Raymond Oconnor on 01-20-2022 Basophils (Bld) [#/Vol]0.0 10*3/uL0.0-0.2FParkwood Hospital Basophils/100 WBC Auto (Bld)Ordered By: Raymond Oconnor on 71-89-5883Mcjcmozqs/100 WBC (Bld)0.4 %.[facility] Samaritan HospitalBilirubin Auto test strip Ql (U) Ordered By: Raymond Oconnor on 99-67-4787Xuesadjkg Ql (U)NegativeNegativeTrihealth Good Samaritan HospitalBlood hemoglobin measurement (mass/volume)Ordered By: Raymond Oconnor on 45-92-0977Erhwrypemk (Bld) [Mass/Vol]10.6 g/dL11.8-15.4FParkwood HospitalBlood leukocytes automated count (number/volume)Ordered By: Raymond Oconnor on 27-62-4383WZT (Bld) [#/Vol]6.8 10*3/uL4.5-11.0[facility] HospitalCreatinine and Glomerular filtration rate.predicted panel (S/P/Bld)Ordered By: Raymond Oconnor on 81-44-8416Remuadyxvs [Mass/Vol]0.62 mg/dL 0.44-1.03[facility]itan HospitalEosinophils Auto (Bld) [#/Vol]Ordered By: Raymond Oconnor on 84-66-8799Vrsiakoocmg (Bld) [#/Vol]0.1 10*3/uL0.0-0.45 [facility] HospitalEosinophils/100 WBC Auto (Bld)Ordered By: Raymond Oconnor on 25-80-3093Pwfacmpbskt/100 WBC (Bld)1.5 %.[facility]aritan HospitalErythrocyte distribution width Auto (RBC) [Ratio]Ordered By: Raymond Oconnor on 83-01-9563Jdbutiduipc distribution width (RBC) [Ratio]18.2 % 11.9-15.3FParkwood HospitalEstimated glomerular filtration rate (GFR) non- AmericanOrdered By: Raymond Oconnor on 71-44-6402GVI/1.73 sq M.predicted among non-blacks MDRD (S/P/Bld) [Vol rate/Area]> 60 mL/MinTrihealth Good Samaritan HospitalGlobulin Calc (S) [Mass/Vol]Ordered By: Raymond Oconnor on 08-06-6138Phxpmeor (S) [Mass/Vol]3.1 g/dLTrihealth Good Samaritan Hospital Hematocrit Auto (Bld) [Volume fraction]Ordered By: Raymond Oconnor on 01-20-2022 Hematocrit (Bld) [Volume fraction]33.6 %34.0-46.4FParkwood HospitalKetones Auto test strip (U) [Mass/Vol]Ordered By: Raymond Oconnor on 74-82-9022Qusbtsg (U) [Mass/Vol]NegativeNegativeTrihealth Good Samaritan HospitalLaboratory - Hematology and Cell countsOrdered By: Raymond Oconnor on 08-61-2945Swhwbcice RBC/100 WBC (Bld) [Ratio]0.0 %0-0.5FParkwood HospitalLaboratory - UrinalysisOrdered By: Raymond Oconnor on 01-20-2022 Hyaline casts LM Ql (Urine sed)0-8 [LPF]0-8[facility] Lymphocytes Auto (Bld) [#/Vol]Ordered By: Raymond Oconnor on 77-32-2911Ssqvjyhauga (Bld) [#/Vol]1.3 10*3/uL1.00-4.8[facility] HospitalLymphocytes/100 WBC Auto (Bld)Ordered By: Raymond Oconnro on 73-34-7071Oletjovezrl/100 WBC (Bld) 19.1 %.[facility]aritan HospitalMCH Auto (RBC) [Entitic mass]Ordered By: Raymond Oconnor on 62-01-8616KKZ (RBC) [Entitic mass]26.9 pg24.7-34.3FParkwood HospitalMCHC Auto (RBC) [Mass/Vol]Ordered By: Raymond Oconnor on 01-49-0304IXJH (RBC) [Mass/Vol]31.7 g/dL32.0-35.0[facility] HospitalMCV Auto (RBC) [Entitic vol]Ordered By: Raymond Oconnor on 79-28-8188GNI (RBC) [Entitic vol]84.8 zK00-831IqjokggqcTrihealth Good Samaritan HospitalMonocytes Auto (Bld) [#/Vol]Ordered By: Raymond Oconnor on 11-85-9840Pqxwjcxpy (Bld) [#/Vol]0.4 10*3/uL0.0-0.8[facility] HospitalMonocytes/100 WBC Auto (Bld) Ordered By: Raymond Oconnor on 77-78-1459Ckdcmwbwn/100 WBC (Bld)6.6 %.[facility]aritan HospitalNeutrophils Auto (Bld) [#/Vol]Ordered By: Raymond Oconnor on 69-89-2683Bqldjutpuoo (Bld) [#/Vol]4.9 10*3/uL1.8-7.7FParkwood HospitalNeutrophils/100 WBC Auto (Bld)Ordered By: Raymond Oconnor on 01-20-2022 Neutrophils/100 WBC (Bld)72.4 %.[facility]itan HospitalNo Panel InformationOrdered By: Raymond Oconnor on 01-95-7332Rbemyofuq GFR ()> 60 mL/MinTrihealth Good Samaritan HospitalComment on above:GFR estimated reference range: According to KDOQI guidelines, <60 ml/min/1.73m2 is sufficient todiagnose a patient with chronic kidney disease.Pharmacy Creatinine Clearance (Ukno166.20[facility]aritan HospitalPlatelet mean volume Auto (Bld) [Entitic vol]Ordered By: Raymond Oconnor on 84-31-1759Rxwffesc mean volume (Bld) [Entitic vol]8.1 fL6.3-10.7FParkwood HospitalPlatelets Auto (Bld) [#/Vol]Ordered By: Raymond Oconnor on 20-77-8713Lmlqkjkfw (Bld) [#/Vol]214 10*3/dL055-439SqmpdjtcfTrihealth Good Samaritan HospitalProtein Auto test strip (U) [Mass/Vol]Ordered By: Raymond Oconnor on 69-23-7093Euohsbd (U) [Mass/Vol]Negative NegativeTrihealth Good Samaritan HospitalProtein [Mass/volume] in Serum or PlasmaOrdered By: Raymond Oconnor on 86-12-3481Hwduhqn [Mass/Vol]6.5 g/dL6.1-7.9 [facility] HospitalRBC Auto (Bld) [#/Vol]Ordered By: Raymond Oconnor on 98-68-3030QZA (Bld) [#/Vol]3.95 10*6/uL3.60-5.00[facility] Centererum or plasma alanine aminotransferase measurement without P-5'-P (enzymatic activiOrdered By: Raymond Oconnor on 06-61-0282PGA No additional P-5'-P [Catalytic activity/Vol]10 U/M38-35SkllknsouAshtabula County Medical Centererum or plasma albumin/globulin mass ratioOrdered By: Raymond Oconnor on 01-20-2022 Albumin/Globulin [Mass ratio]1.1 {ratio}[facility] Centererum or plasma alkaline phosphatase measurement (enzymatic activity/volume)Ordered By: Raymond Oconnor on 06-08-9682ICB [Catalytic activity/Vol]51 U/G42-60KyjkmmbnmAshtabula County Medical Centererum or plasma aspartate aminotransferase measurement (enzymatic activity/volume)Ordered By: Raymond Oconnor on 63-84-1733WJX [Catalytic activity/Vol]16 U/G61-17NqvpzcafuAshtabula County Medical Centererum or plasma calcium measurement (mass/volume)Ordered By: Raymond Oconnor on 88-38-4372Dsgklhf [Mass/Vol]9.4 mg/dL8.2-10.2FSamaritan Hospitalerum or plasma chloride measurement (moles/volume)Ordered By: Raymond Oconnor on 01-20-2022 Chloride [Moles/Vol]103 mmol/Z22-449MiwzojcnsAshtabula County Medical Centererum or plasma glucose measurement (mass/volume)Ordered By: Raymond Oconnor on 01-20-2022 Glucose [Mass/Vol]82 mg/aE56-921YsfhdpwhjTrihealth Good Samaritan HospitalComment on above:ADA recommended reference range Random Glucose Reference Range is dependent on time and content of last meal. Glucose of more than 200 mg/dL in a nonstressed, ambulatory subject supports the diagnosis of Diabetes Mellitus.Serum or plasma potassium measurement (moles/volume)Ordered By: Raymond Oconnor on 61-25-3412Uiiaacjlk [Moles/Vol]4.0 mmol/L3.5-5.1FSamaritan Hospitalerum or plasma sodium measurement (moles/volume)Ordered By: Raymond Oconnor on 16-63-3827Ehvktt [Moles/Vol]134 mmol/O454-874LzdbrgwfcAshtabula County Medical Centererum or plasma total bilirubin measurement (mass/volume)Ordered By: Raymond Oconnor on 97-81-2403Ywlnlzgsw [Mass/Vol]0.7 mg/dL0.3-1.2FSamaritan Hospitalerum or plasma total carbon dioxide measurement (moles/volume)Ordered By: Raymond Oconnor on 01-20-2022 CO2 [Moles/Vol]19.6 mmol/L22.0-30.0[facility] Centererum or plasma urea nitrogen measurement (mass/volume)Ordered By: Raymond Oconnor on 57-48-0421Pftv nitrogen [Mass/Vol]8 mg/dL9-23[facility] Squamous epithelial cells detection in urine sediment by light microscopyOrdered By: Raymond Oconnor on 18-59-8627Mbukfytabr cells.squamous LM Ql (Urine sed)0-1 [HPF]0-2FParkwood HospitalUrine appearanceOrdered By: Raymond Oconnor on 44-63-9849Oddajkkgoy (U)ClearCleMercy Hospital Urine bacteria detection by automated methodOrdered By: Raymond Oconnor on 41-74-2891Qnhnqmbu Auto Ql (U)None seenNone SeenTrihealth Good Samaritan HospitalUrine colorOrdered By: Raymond Oconnor on 72-23-4687Wzbsb (U)YellowYelOhioHealth Shelby HospitalUrine glucose measurement by automated test strip (mass/volume)Ordered By: Raymond Oconnor on 48-39-3708Pqemjlp Auto test strip (U) [Mass/Vol]Normal mg/dLNormalTrihealth Good Samaritan HospitalUrine hemoglobin detection by automated test stripOrdered By: Raymond Oconnor on 03-69-9832Mlqcynzjqy Auto test strip Ql (U)NegativeNegativeTrihealth Good Samaritan HospitalUrine leukocyte esterase detection by automated test stripOrdered By: Raymond Oconnor on 29-50-0274Rcnhdkjqh esterase Auto test strip Ql (U)2+ NegativeTrihealth Good Samaritan HospitalUrine nitrite detection by automated test stripOrdered By: Raymond Oconnor on 14-18-3901Wkiwszc Auto test strip Ql (U) NegativeNegativeTrihealth Good Samaritan HospitalUrine sediment crystal identification by light microscopyOrdered By: Raymond Oconnor on 89-75-8187Abgpzjex LM Nom (Urine sed)None seen [HPF][facility]aritan HospitalUrobilinogen Auto test strip (U) [Mass/Vol]Ordered By: Raymond Oconnor on 83-25-8970Taiwnsspaxwa (U) [Mass/Vol]Normal mg/dLNormalTrihealth Good Samaritan HospitalpH Auto test strip (U)Ordered By: Raymond Oconnor on 25-04-8963bZ (U)1.030 [pH]1.001-1.030 [facility]itan HospitalpH (U)6.0 [pH]5.0-9.0[facility] HospitalTobacco Screening.on 51-81-4900Munv risk assessmenta) No falls within the last year[facility] [employer] DO Work Phone: Tobacco use status CPHSb) NoMPMulticare Valley Hospital [employer] DO Work Phone: Tobacco Screening.Yes-[facility] [employer] DO Work Phone: Serum or plasma beta choriogonadotropin measurement (units/volume)Ordered By: Eduardo Swain on 54-67-7622FYJ.beta subunit Wl5116.00 m[IU]/mLTrihealth Good Samaritan HospitalComment on above:Approximate Approximate hCG Gestational Age Range (mIU/ml) (weeks) 0.2-1 5-50 1-2 50-500 2-3 100-5,000 3-4 500-10,000 4-5 1,000-50,000 5-6 10,000-100,000 6-8 15,000-200,000 8-12 10,000-100,000 Cholesterol [Mass/volume] in Serum or PlasmaOrdered By: Eduardo Swain on 28-44-7849Uvxweskksqn [Mass/Vol]190 mg/gQ601-655ArdivfqjpTrihealth Good Samaritan HospitalComment on above:Chol less than 200 mg/dl low risk Chol 201-239 mg/dl borderline risk Chol 240 mg/dl and greater high riskCholesterol in LDL Calc [Mass/Vol]Ordered By: Eduardo Swain on 50-52-6655Thydfmyzyay in LDL [Mass/Vol]103 mg/dL0-100 [facility] Samaritan HospitalComment on above:LDL ATP III CLASSIFICATION LDL less than 100 mg/dL Optimal LDL 100-129 mg/dL Near or above optimal LDL 130-159 mg/dL Borderline high LDL 160-189 mg/dL High LDL greater than 189 mg/dL Very highCholesterol in VLDL Calc [Mass/Vol]Ordered By: Eduardo Swain on 37-69-9980Tmsargkyfkg in VLDL [Mass/Vol]9 mg/dLTrihealth Good Samaritan HospitalNo Panel InformationOrdered By: Eduardo Swain on 20-76-125757242318-Vpkvmue Vitamin D Total40.6 ng/aV06-653FmtajbzvdTrihealth Good Samaritan HospitalComment on above:VITAMIN D STATUS 25(OH)VITAMIN D RANGE (ng/mL) Deficient <20 Insufficient 20 to <30 Sufficient 30 to 100 Reference: Franklyn MF,Benjamin NC, Andreina MARQUEZ, et al. Evaluation,treatment, and prevention of vitamin D deficiency; an Endocrine Society clinical practice guideline. JCEM. 2010; 96(7):1911-30.Serum or plasma high density lipoprotein (HDL) cholesterol measurementOrdered By: Eduardo Swain on 83-39-3510Kpnwsxqonbn in HDL [Mass/Vol]78 mg/sV97-30XsrslhuglTrihealth Good Samaritan HospitalComment on above:HDL CHOL ATP-III CLASSIFICATION Cardiovascular Risk HDL > or equal to 60 mg/dL LOW HDL < 40 mg/dL HIGHSerum or plasma total cholesterol/high density lipoprotein (HDL) cholesterol mass ratOrdered By: Eduardo Swain on 12-11-2021 Cholesterol.total/Cholesterol in HDL [Mass ratio]2.4 {ratio}<5.0[facility] <= 0.005 mIU/L QnOrdered By: Eduardo Swain on 86-11-7638RYU Qn2.40 m[IU]/L0.45-5.33[facility] Triglyceride [Mass/volume] in Serum or PlasmaOrdered By: Eduardo Swain on 82-45-4777Dshyrgbicdro [Mass/Vol]47 mg/kQ11-693UpwgqbwjtTrihealth Good Samaritan Hospital Comment on above:TRIG ATP III CLASSIFICATION TRIG less than 150 mg/dL Normal TRIG 150-199 mg/dL Borderline high TRIG 200-500 mg/dL High TRIG greater than 500 mg/dL Very high Standard traceable to the Center for Disease Conrtrol and Prevention (CDC) test method.Serum or plasma beta choriogonadotropin measurement (units/volume)Ordered By: Eduardo Swain on 26-96-6249BDY.beta subunit Qn315.21 m[IU]/mLTrihealth Good Samaritan HospitalComment on above:Approximate Approximate hCG Gestational Age Range (mIU/ml) (weeks) 0.2-1 5-50 1-2 50-500 2-3 100-5,000 3-4 500-10,000 4-5 1,000-50,000 5-6 10,000-100,000 6-8 15,000-200,000 8-12 10,000-100,000 Urine culture routineOrdered By: Cornell Mcnair on 99-00-4418Xuyyzlcd identified Cx Nom (U)Strep. agalactiae Grp BFParkwood HospitalAmphetamine Screen Ql (U)Ordered By: Cornell Mcnair on 93-90-0914Qkniokwtcwen Ql (U)Negative NegativeTrihealth Good Samaritan HospitalAutomated erythrocytes count in urine sediment (number/area)Ordered By: Cornell Mcnair on 48-58-1932YAT Auto (Urine sed) [#/Area]10-19 [HPF]0-4FParkwood HospitalAutomated leukocytes count in urine sediment (number/area)Ordered By: Cornell Mcnair on 22-06-0912GYM Auto (Urine sed) [#/Area]50-100 [HPF]0-4FParkwood Hospital Automated urine hyaline casts count (number/volume)Ordered By: Cornell Mcnair on 30-39-1044Fztexrh casts Auto (U) [#/Vol]0-1 [LPF]0-1FParkwood HospitalAutomated urine sediment calcium oxalate crystal count by microscopy (number/high powOrdered By: Cornell Mcnair on 56-90-4465Ocnyptj oxalate crystals LM.HPF (Urine sed) [#/Area]3+ [HPF][facility]aritan HospitalBarbiturates [Presence] in UrineOrdered By: Cornell Mcnair on 34-06-3490Hgrmrsgvdwvp Ql (U) NegativeNegativeTrihealth Good Samaritan HospitalBasophils Auto (Bld) [#/Vol] Ordered By: Cornell Mcnair on 27-84-9992Csoevxcdx (Bld) [#/Vol]0.0 10*3/uL0.0-0.2 [facility]itan HospitalBasophils/100 WBC Auto (Bld)Ordered By: Cornell Mcnair on 74-68-2221Zwdpfyiii/100 WBC (Bld)0.6 %.[facility] Samaritan HospitalBenzodiazepines [Presence] in UrineOrdered By: Cornell Mcnair on 12-08-2021 Benzodiazepines Ql (U)NegativeNegativeTrihealth Good Samaritan HospitalBilirubin Test strip Ql (U)Ordered By: Cornell Mcnair on 19-18-1064Zytucddxa Ql (U)Negative NegativeTrihealth Good Samaritan HospitalBlood hemoglobin measurement (mass/volume)Ordered By: Cornell Mcnair on 15-58-4875Phaomizpsn (Bld) [Mass/Vol]9.6 g/dL11.8-15.4FParkwood HospitalBlood leukocytes automated count (number/volume)Ordered By: Cornell Mcnair on 12-20-3604VLN (Bld) [#/Vol]6.9 10*3/uL 4.5-11.0[facility]itan HospitalBody fluid albumin measurement (mass/volume)Ordered By: Cornell Mcnair on 28-97-6773Hebguxp (Body fld) [Mass/Vol] 3.4 g/dL3.2-5.5FParkwood HospitalCOVID-19 SOFIAOrdered By: Cornell Mcnair on 13-46-3056HHZF-CoV+SARS-CoV-2 (COVID-19) Ag IA.rapid Ql (Resp)Negative NegativeTrihealth Good Samaritan HospitalComment on above:This is a duplicate Roshni SARS Antigen (DIEUDONNE) result to be used for statistical tracking purpose only .Cannabinoids [Presence] in Urine by Screen methodOrdered By: Cornell Mcnair on 57-01-7548Lnqbzkhjuaeb Screen Ql (U)NegativeNegativeTrihealth Good Samaritan HospitalComment on above:These are unconfirmed results and should not be used for legal purposes. Drug Cut-Off Concentration: AMPH 1000 ng/mL BOO 200 ng/mL HELGA 200 ng/mL COCM 300 ng/mL OP 300 ng/mL PCP 25 ng/mL THC 20 ng/mLCasts typing in urine sediment by light microscopyOrdered By: Cornell Mcnair on 81-11-5747Uwnad LM Nom (Urine sed)None seen [LPF]None SeenTrihealth Good Samaritan HospitalColor Auto (U)Ordered By: Cornell Mcnair on 42-83-3307Zwqsn (U)YellowYellowTrihealth Good Samaritan HospitalCreatinine and Glomerular filtration rate.predicted panel (S/P/Bld)Ordered By: Cornell Mcnair on 12-08-2021 Creatinine [Mass/Vol]0.78 mg/dL0.44-1.03[facility] Eosinophils Auto (Bld) [#/Vol]Ordered By: Cornell Mcnair on 56-24-5791Tvyxnrjpbap (Bld) [#/Vol]0.2 10*3/uL0.0-0.45[facility]itan HospitalEosinophils/100 WBC Auto (Bld)Ordered By: Cornell Mcnair on 05-04-2344Gwjlpdfxngm/100 WBC (Bld)2.6 %.[facility]itan HospitalErythrocyte distribution width Auto (RBC) [Ratio]Ordered By: Cornell Mcnair on 40-17-3181Czoxtmbnmkj distribution width (RBC) [Ratio]15.5 %11.9-15.3FParkwood HospitalEstimated glomerular filtration rate (GFR) non- AmericanOrdered By: Cornell Mcnair on 12-08-2021 GFR/1.73 sq M.predicted among non-blacks MDRD (S/P/Bld) [Vol rate/Area]> 60 mL/MinTrihealth Good Samaritan HospitalGlobulin Calc (S) [Mass/Vol]Ordered By: Cornell Mcnair on 29-06-0783Qfwptgrx (S) [Mass/Vol]3.1 g/dLTrihealth Good Samaritan HospitalHCG ( test) IA.rapid Ql (U)Ordered By: Cornell Mcnair on 65-39-8650OWT ( test) Ql (U)PositiveTrihealth Good Samaritan Hospital Hematocrit Auto (Bld) [Volume fraction]Ordered By: Cornell Mcnair on 12-08-2021 Hematocrit (Bld) [Volume fraction]30.1 %34.0-46.4FParkwood HospitalKetones Auto test strip (U) [Mass/Vol]Ordered By: Cornell Mcnari on 12-08-2021 Ketones (U) [Mass/Vol]TraceNegativeTrihealth Good Samaritan HospitalLaboratory - Drug toxicologyOrdered By: Cornell Mcnair on 66-38-8738Cjvscie Ql (U)Negative NegativeTrihealth Good Samaritan HospitalLaboratory - Hematology and Cell counts Ordered By: Cornell Mcnair on 41-73-3178Ehycwhapg RBC/100 WBC (Bld) [Ratio]0.0 % 0-0.5FParkwood HospitalLymphocytes Auto (Bld) [#/Vol]Ordered By: Cornell Mcnair on 21-67-3015Flfctlkflmw (Bld) [#/Vol]1.5 10*3/uL1.00-4.8[facility]itan HospitalLymphocytes/100 WBC Auto (Bld)Ordered By: Cornell Mcnair on 59-47-0711Mxeubvqcthg/100 WBC (Bld)22.3 %.[facility] SystemH Auto (RBC) [Entitic mass]Ordered By: Cornell Mcnair on 70-29-8978IXQ (RBC) [Entitic mass]26.3 pg24.7-34.3FParkwood HospitalMCHC Auto (RBC) [Mass/Vol] Ordered By: Cornell Mcnair on 34-98-2871FHRY (RBC) [Mass/Vol]32.0 g/dL32.0-35.0 [facility] HospitalMCV Auto (RBC) [Entitic vol]Ordered By: Cornell Mcnair on 11-43-5097TDP (RBC) [Entitic vol]82.4 bJ01-300KflutwjmpTrihealth Good Samaritan HospitalMonocytes Auto (Bld) [#/Vol]Ordered By: Cornell Mcnair on 12-08-2021 Monocytes (Bld) [#/Vol]0.4 10*3/uL0.0-0.8[facility] Monocytes/100 WBC Auto (Bld)Ordered By: Cornell Mcnair on 41-52-5246Txhhfttbe/100 WBC (Bld)6.5 %.[facility]itan HospitalMucus LM Ql (Urine sed)Ordered By: Cornell Mcnair on 87-51-1406Ngwcd Ql (Urine sed)2+ [LPF][facility] HospitalNeutrophils Auto (Bld) [#/Vol]Ordered By: Cornell Mcnair on 12-08-2021 Neutrophils (Bld) [#/Vol]4.7 10*3/uL1.8-7.7FParkwood Hospital Neutrophils/100 WBC Auto (Bld)Ordered By: Cornell Mcnair on 12-08-2021 Neutrophils/100 WBC (Bld)68.0 %.[facility]itan HospitalNitrite Test strip Ql (U)Ordered By: Cornell Mcnair on 56-03-0146Efchvdw Ql (U)NegativeNegative [facility] HospitalNo Panel InformationOrdered By: Cornell Mcnair on 20-21-6083Qrwwhvwkw GFR ()> 60 mL/MinTrihealth Good Samaritan HospitalComment on above:GFR estimated reference range: According to KDOQI guidelines, <60 ml/min/1.73m2 is sufficient todiagnose a patient with chronic kidney disease.Pharmacy Creatinine Clearance (Ljnx609.38[facility] CenterARS Antigen (LFIA)[facility] HospitalPhencyclidine Screen Ql (U)Ordered By: Cornell Mcnair on 26-41-7280Tjgeakzpigzfh Ql (U)Negative NegativeTrihealth Good Samaritan HospitalPlatelet mean volume Auto (Bld) [Entitic vol]Ordered By: Cornell Mcnair on 18-02-8397Wpklamga mean volume (Bld) [Entitic vol]7.2 fL6.3-10.7FParkwood HospitalPlatelets Auto (Bld) [#/Vol]Ordered By: Cornell Mcnair on 08-88-2331Qqykilddn (Bld) [#/Vol]229 10*3/uL 150-450[facility] HospitalProtein Auto test strip (U) [Mass/Vol] Ordered By: Cornell Mcnair on 73-71-3963Wkmgcly (U) [Mass/Vol]NegativeNegative [facility] HospitalProtein [Mass/volume] in Serum or PlasmaOrdered By: Cornell Mcnair on 84-46-4549Ecopdkk [Mass/Vol]6.5 g/dL6.1-7.9[facility] HospitalRBC Auto (Bld) [#/Vol]Ordered By: Cornell Mcnair on 93-01-1368MJW (Bld) [#/Vol]3.65 10*6/uL3.60-5.00[facility] Centererum or plasma alanine aminotransferase measurement without P-5'-P (enzymatic activi Ordered By: Cornell Mcnair on 34-04-2228NUK No additional P-5'-P [Catalytic activity/Vol]11 U/T52-27DfyxkeuosAshtabula County Medical Centererum or plasma albumin/globulin mass ratioOrdered By: Cornell Mcnair on 79-07-3910Zvavqwy/Globulin [Mass ratio]1.1 {ratio}[facility] Centererum or plasma alkaline phosphatase measurement (enzymatic activity/volume)Ordered By: Cornell Mcnair on 47-51-1964WAD [Catalytic activity/Vol]64 U/N87-69CpdpwafdhAshtabula County Medical Centererum or plasma aspartate aminotransferase measurement (enzymatic activity/volume)Ordered By: Cornell Mcnair on 21-09-8427RIC [Catalytic activity/Vol] 22 U/L01-86DogcsefqpAshtabula County Medical Centererum or plasma calcium measurement (mass/volume)Ordered By: Cornell Mcnair on 78-01-3167Ektwocs [Mass/Vol]8.9 mg/dL 8.2-10.2FSamaritan Hospitalerum or plasma chloride measurement (moles/volume)Ordered By: Cornell Mcnair on 33-10-5153Zujlziog [Moles/Vol]106 mmol/L 95-114[facility] Centererum or plasma ethanol measurement (mass/volume)Ordered By: Cornell Mcnair on 08-82-7177Ebgxebj [Mass/Vol]mg/dL [facility]itan HospitalEthanol [Mass/Vol]TNPTrihealth Good Samaritan HospitalComment on above:Test not performedSerum or plasma glucose measurement (mass/volume)Ordered By: Cornell Mcnair on 58-60-4393Xaoeyyu [Mass/Vol]86 mg/dL 70-100[facility]itan HospitalComment on above:ADA recommended reference range Random Glucose Reference Range is dependent on time and content of last meal. Glucose of more than 200 mg/dL in a nonstressed, ambulatory subject supports the diagnosis of Diabetes Mellitus.Serum or plasma potassium measurement (moles/volume)Ordered By: Cornell Mcnair on 19-90-8966Tdhhvvfwk [Moles/Vol]3.9 mmol/L3.5-5.1FSamaritan Hospitalerum or plasma sodium measurement (moles/volume)Ordered By: Cornell Mcnair on 21-04-5159Rmytbx [Moles/Vol]137 mmol/L 136-146[facility] Centererum or plasma total bilirubin measurement (mass/volume)Ordered By: Cornell Mcnair on 73-41-5833Jeqlvciyz [Mass/Vol]0.4 mg/dL0.3-1.2FSamaritan Hospitalerum or plasma total carbon dioxide measurement (moles/volume)Ordered By: Cornell Mcnair on 12-08-2021 CO2 [Moles/Vol]23.8 mmol/L22.0-30.0[facility] Centererum or plasma urea nitrogen measurement (mass/volume)Ordered By: Cornell Mcnair on 86-87-7927Drmq nitrogen [Mass/Vol]9 mg/dL9-23[facility] Specific gravity Auto test strip (U) [Rel density]Ordered By: Cornell Mcnair on 30-93-5905Wcpxbsbo gravity (U) [Rel density]1.0241.001-1.030[facility] Medical Centerquamous epithelial cells detection in urine sediment by light microscopyOrdered By: Cornell Mcnair on 15-88-6863Ulsvxczbre cells.squamous LM Ql (Urine sed)10-19 [HPF]0-2FParkwood HospitalUrine bacteria detection by automated methodOrdered By: Cornell Mcnair on 25-42-8226Wnkqepkd Auto Ql (U)None seenNone SeenTrihealth Good Samaritan HospitalUrine clarity by refractometry automatedOrdered By: Cornell Mcnair on 14-67-8323Udoarbd Refractometry automated (U)CloudyClearFParkwood HospitalUrine cocaine detectionOrdered By: Cornell Mcnair on 00-39-6786Mjojzsw Ql (U)NegativeNegative [facility] HospitalUrine glucose measurement by automated test strip (mass/volume)Ordered By: Cornell Mcnair on 33-99-4085Dazgavp Auto test strip (U) [Mass/Vol]Normal mg/dLNormPremier Health Miami Valley Hospital SouthUrine hemoglobin detection by automated test stripOrdered By: Cornell Mcnair on 12-08-2021 Hemoglobin Auto test strip Ql (U)NegativeNegativeTrihealth Good Samaritan HospitalUrine leukocyte esterase detection by automated test stripOrdered By: Cornell Mcnair on 60-26-5378Impthlpjc esterase Auto test strip Ql (U)3+NegativeTrihealth Good Samaritan HospitalUrobilinogen Auto test strip (U) [Mass/Vol]Ordered By: Cornell Mcnair on 23-64-0275Nmiphiukzcwd (U) [Mass/Vol]Normal mg/dLNormPremier Health Miami Valley Hospital SouthYeast detection in urine sediment by light microscopy Ordered By: Cornell Mcnair on 71-67-1219Reudb LM Ql (Urine sed)1+ [HPF]None Seen [facility]itan HospitalpH Auto test strip (U)Ordered By: Cornell Mcnair on 32-71-2929sR (U)5.0 [pH]5.0-9.0[facility] HospitalCNPNon 36-10-7331IQFOJorpvhusg (GASTSP) MARICARMEN ANDERSON ([id number]) 1980 F T Date Time Provider Department [...] calling: self Call patient at: at home [phone] (home) [phone] (cell) Was an appointment scheduled: No Closing statement: Symptom Call: Thank you for calling [facility], your call is very important. A nurse [...] She states she will go to a [facility] because local ER doesn't know what [...] Encounter Status:Closed by KATHI WATERMAN RN on 09/18/21[facility] CERVICAL SPINE WO IVCONon 32-31-1549RIE CERVICAL SPINE WO IVCON* * *Final Report* [...] vertebrae with counting from the craniocervical junction. Keno Clerk: [facility] Transcribe Date/Time: Nov 13 2020 2:41P Dictated by : KURT MALIN MD This examination was interpreted and the report reviewed and electronically signed by: DHRUV KINGSLEY MD on Nov 13 2020 3:33PM EST [id number] Health KIDNEY WO/W IVCONon 04-75-1366HEJ KIDNEY WO/W IVCON* * *Final Report* * * DATE OF EXAM: Nov 13 2020 3:11PM [facility]/W IVCON / [...] included: axial precontrast T1 weighted in- and mlz-dt-dlqwk, axial and coronal HASTE, axial DWI with [...] NO SUSPICIOUS OR ENHANCING RENAL LESIONS OTHERWISE. Keno Clerk: LISA Transcribe Date/Time: Nov 13 2020 3:28P Dictated by : GAURAV RODRIGUEZ MD This examination was interpreted and the report reviewed and electronically signed by: NACHO BARONE DO on Nov 13 2020 7:26PM EST [id number] Medical Cleveland Clinic Rehabilitation Hospital, Edwin ShawXR CHEST 2V FRONTAL/LATon 73-58-0544ZV CHEST 2V FRONTAL/LAT* * *Final Report* * [...] disease identified in the lungs or mediastinum. Keno Clerk: LISA Transcribe Date/Time: Nov 13 2020 3:36P Dictated by : DESI MAHONEY MD This examination was interpreted and the report reviewed and electronically signed by: DESI MAHONEY MD on Nov 13 2020 3:38PM EST [id number] Medical Cleveland Clinic Rehabilitation Hospital, Edwin ShawBahealthsouth northern k[facility] rehabilitation hospital Metabolic Panlon 83-12-7733Bmisp gap [Moles/Vol]9 mmol/LNormal0-15[facility] HospitalCalcium [Mass/Vol]8.9 mg/dLNormal8.5-10.2[facility] HospitalChloride [Moles/Vol]112 mmol/MNfla80-192Ggfemfbedak HospitalCO2 [Moles/Vol]19 mmol/HPkg30-01Bajcovmfohz HospitalCreatinine [Mass/Vol]0.73 mg/dLNormal0.58-0.96[facility]okside CampuseGFR- Amer.>60NormalSSaint Joseph Hospital of KirkwoodeGFR-All Other Races>60Normal [facility] HospitalComment on above:Result Comment: eGFR (Estimated GFR) [...] not accurately reflect actual GFR.Glucose [Mass/Vol]89 mg/dLNormal 74-99Souniversity of missouri children's hospital HospitalPotassium [Moles/Vol]3.7 mmol/LNormal3.7-5.1Soutboston university medical center hospitale HospitalSodium [Moles/Vol]140 mmol/JIbbbdm319-372Nkvoagyxlfl HospitalUrea nitrogen [Mass/Vol]21 mg/dLNormal7-21Souniversity of missouri children's hospital HospitalBlood Cultureon 06-71-1988Okwooohe identified Cx Nom (Bld)Culture Result - No growth 5 days NormalResearch Medical Center-Brookside CampusComment on above:Performed By: #### BLCUL ####[facility] [address] [employer], [place] [address]20192-36 4-5755Bacteria identified Cx Nom (Bld)Sp. Request/Comment: - 42.85CC Culture Result - No growth 5 daysNormBoone Hospital CenterComment on above: Performed By: #### BLCUL ####[facility] [address] [employer], [place] [id number] 71-02-1757Xwomqecp nRBC<0.01Normal <0.01Souniversity of missouri children's hospital HospitalErythrocyte distribution width (RBC) [Ratio]16.8 %High 11.5-15.0[facility]high[facility] parke HospitalHematocrit (Bld) [Volume fraction]28.9 %Low 36.0-46.0Southhighland parke HospitalHemoglobin (Bld) [Mass/Vol]8.5 g/dLLow11.5-15.5 [facility] HospitalH26.6 bBLqcdxs34.0-34.0[facility] HospitalHC (RBC) [Mass/Vol]29.4 g/dLLow30.5-36.0[facility] Memorial HospitalV (RBC) [Entitic vol]90.6 vNYprxrg24.0-100.0[facility] HospitalPlatelet mean volume (Bld) [Entitic vol] 11.6 fLNormal9.0-12.7[facility] HospitalPlatelets (Bld) [#/Vol]167 10*3/uL Tbqkda498-561Izrwnflwwkp HospitalRBC (Bld) [#/Vol]3.19 10*6/uLLow3.90-5.20 [facility] CampusWBC (Bld) [#/Vol]3.88 10*3/uLNormal3.70-11.00[facility] CampusCNDSon 91-71-5965CYWQCUS ID: [id number] Author: Lucero Wheeler DO Service: General Surgery [...] fevers. 40 year old female presented to [facility]2020 with fevers and [...] needed for Nausea/Vo (more content not included)...NormalSouthpointe [facility] 78-99-5539ZKXYNRL PROGHNO ID: [id number] Author: Awais Gonzalez MD Service: Infectious Disease [...] Right Chest 3 days SIGNATURE: Awais Gonzalez MDSt. [facility] PROmeli [facility]: [id number] Author: Wisam Carvajal RN Service: ? Author [...] given This note was completed by: Wisam MiBoone Hospital CenterANA Panel 1on 51-23-8087NBZ by EIA0.8 OD RatioNormalSoMissouri Southern HealthcareComment on above: Result Comment: OD Ratio is interpreted as follows: Negative <1.0 Positive >=1.0Performed By: #### PREALB, TRANSF #### [facility] [address] [place] [address] PFQ by EIA, QualNegativeNormalNegativeSSaint Joseph Hospital of KirkwoodComment on above:Performed By: #### PREALB, TRANSF #### [facility] [address] [place] [address] Ihgtl Metabolic Panlon 29-03-0425Vucfp gap [Moles/Vol]9 mmol/LNormal 0-15Somadison medical centere HospitalCalcium [Mass/Vol]9.2 mg/dLNormal8.5-10.2[facility] HospitalChloride [Moles/Vol]115 mmol/DIifq06-661Aayooqsvwvy HospitalCO2 [Moles/Vol]19 mmol/FFtv47-92Offuqkyoksf HospitalCreatinine [Mass/Vol]0.78 mg/dL Normal0.58-0.96Somadison medical centere HospitaleGFR- Amer.>60NormalSoutboston university medical center hospitale HospitaleGFR-All Other Races>60NormalShannibal regional hospital HospitalComment on above:Result Comment: eGFR [...] not accurately reflect actual GFR.Glucose [Mass/Vol]89 mg/dLNormal 74-99Souniversity of missouri children's hospital HospitalPotassium [Moles/Vol]3.8 mmol/LNormal3.7-5.1[facility] HospitalSodium [Moles/Vol]143 mmol/DVnhipv299-839Imsmqwvinia HospitalUrea nitrogen [Mass/Vol]20 mg/dLNormal7-21SoMissouri Southern HealthcareBlood Cultureon 90-21-9923Fhemempf identified Cx Nom (Bld)Culture Result - No growth 5 days NormalSoMissouri Southern HealthcareComment on above:Performed By: #### BLCUL ####[facility] [id number] [id number]-Qbzgkfri Proteinon 15-58-7366TAI [Mass/Vol]mg/LNormal0.1-0.89[facility]ok[facility] CampusComment on above:Performed By: #### PREALB, TRANSF #### [facility] [address] [address] R4 Complementon 60-43-0756V5 Jbbhxccufm367 mg/hLQviehl04-498 [facility] CampusComment on above:Performed By: #### PREALB, TRANSF #### [place] [address] S4 Complementon 36-30-1530L2 Zkuqynnwmt42 mg/uDIzzdek87-26 [facility] CampusComment on above:Performed By: #### PREALB, TRANSF #### [place] [address] HSKpd 98-01-2048Lybrhgxw nRBC<0.01Normal<0.01[facility] Erythrocyte distribution width (RBC) [Ratio]16.6 %High11.5-15.0[facility]ok[facility] CampusHematocrit (Bld) [Volume fraction]30.0 %Low36.0-46.0[facility] Hemoglobin (Bld) [Mass/Vol]8.9 g/dLLow11.5-15.5SCameron Regional Medical CenterH26.5 pG Hpvwkl59.0-34.0[facility] HospitalHC (RBC) [Mass/Vol]29.7 g/dLLow30.5-36.0 [facility] HospitalV (RBC) [Entitic vol]89.3 rFSffbcs54.0-100.0[facility] CampusPlatelet mean volume (Bld) [Entitic vol]11.5 fLNormal9.0-12.7[facility] CampusPlatelets (Bld) [#/Vol]155 10*3/tMOdhgoa913-264Ijbwygskgwh HospitalRBC (Bld) [#/Vol]3.36 10*6/uLLow3.90-5.20SSaint Joseph Hospital of KirkwoodWBC (Bld) [#/Vol]4.41 10*3/uLNormal3.70-11.00[facility]ok[facility] CampusCONSULTon 31-73-3749ZZWCOQKVYO ID: [id number] Author: Christopher Gonzalez V, MD Service: Infectious [...] Obesity, Class III, BMI 40-49.9 (morbid obesity) ([facility]) - Port-A-Cath in place patients right upper [...] tenderness PSYCH: No (more content not included)...NormalSouthpointe [facility] 35-70-6471UXLXZFN PROGHNO ID: [id number] Author: Anne-Marie Farley RN Service: Nursing Author Type: Registered Nurse Type: Nursing Progress Note Filed: 11/11/2020 9:50 PM Note Text: Nursing Progress Note Patient Name: Maricarmen Anderson [place] Location[place] Daily Note: 1943 received report, assumed pt care. According to medical team it is ok to use medport. 2147 Pt actively throwing up. Holding medications to be given when patient can swallow. 2147 Resident paged. This note was completed by: Anne-Marie HsiehLee's Summit Hospital ID: [id number] Author: Carolina Lowry RN Service: ? Author Type: Registered Nurse Type: Nursing Progress Note Filed: 11/11/2020 7:46 PM Note Text: Nursing Progress Note Patient Name: Maricarmen Adnerson Patient Location[place] Daily Note:Nursing assessment completed see NPR. No signs of distress. 1600 Spoke with the surgery doctor, ok to continue using medport. This note was completed by: Carolina PetersonCox Walnut Lawn [id number] HEALTHHNO ID: [id number] Author: RT Mary(Liz) Service: Radiology Author Type: Threading Machine Operator Type: Allied Health Filed: 11/09/2020 [...] Erin Neri RT(R) November 09, 2020 11:44 PMNormalSouniversity of missouri [facility]'s hospital HospitalBasic Metabolic Panlon 11-10-2020 Anion gap [Moles/Vol]9 mmol/LNormal0-15[facility] HospitalCalcium [Mass/Vol]8.9 mg/dLNormal8.5-10.2[facility] HospitalChloride [Moles/Vol]114 mmol/FLyna05-202 [facility] HospitalCO2 [Moles/Vol]20 mmol/DWrk98-71Ixisywyztpx Hospital Creatinine [Mass/Vol]0.83 mg/dLNormal0.58-0.96[facility] HospitaleGFR- Amer.>60NormalSoutboston university medical center hospitale HospitaleGFR-All Other Races>60NormalSoutboston university medical center hospitale HospitalComment on above:Result Comment: eGFR (Estimated GFR) Units of measure: mL/min/1.73 meters squared eGFR is derived from the reexpressed MDRD Study equation using the following parameters: serum creatinine, age, gender and race. The creatinine assay has been calibrated to be traceable to IDIN. An eGFR <60 mL/min/1.73m2 for >3 months is consistent with chronic kidney disease. Refer to KDOQI guidelines for clinical interpretation. In patients with unstable renal function, e.g. those with acute kidney injury, the eGFR may not accurately reflect actual GFR.Glucose [Mass/Vol]93 mg/dLNormal 74-99[facility] HospitalPotassium [Moles/Vol]3.9 mmol/LNormal3.7-5.1[facility] HospitalSodium [Moles/Vol]143 mmol/LWkneeq679-987Ynovshcbufn HospitalUrea nitrogen [Mass/Vol]16 mg/dLNormal7-21[facility] HospitalCASE MGT INIT Cory 22-94-5027DUJY MGT INIT CHRISTA ID: [id number] Author: Estela Avila RN Service: ? 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 Last discharge within 30 days: No Advance Directive: Current Advance Directive: None Distribution Technician Attempted to Assist with AD Completion: [...] None Has the Patient Been in a Prison Facility in the Past 30 days?: No SOCIAL: Living Arrangements: Home Lives With: Son Financial Resources: Disabled Primary Contact: Extended Emergency Contact Information Primary Emergency Contact: Omarsamira Khalida Mobile Relation: Sister Secondary Emergency Contact: Lucero Chaves Mobile Relation: Mother Supportive Patient Contact:: Yes Contact Resources: Family Family Name/Phone: Sister Khalida Anaya/[phone] Caregiver AssessmentCaregiver is ready, willing and able [...] Completely I feel financially burdened by my ztp-hr-rdridh expenses for my prescription medication:: 0 - Disagree Completely Risk Score: 0 Patient is categorized as: Low risk < 2 Are you interested in bedside delivery of your medications? No Is Patient Psychosocially Complex?: No ASSESSMENT AND PLAN: Medical Needs: Medical Needs: Two or more chronic diseases Psychosocial Needs: Psychosocial Needs: None FREEDOM OF CHOICE EXPLAINED: [place] of Choice Given: No Reason Not Given: [...] 10, 2020 TIME: 9:45 AM PAGER/CONTACT #: [phone] [facility]ius Hospital 11-10-2020 Absolute nRBC<0.01Normal<0.01[facility] CampusErythrocyte distribution width (RBC) [Ratio]16.6 %High11.5-15.0[facility] CampusHematocrit (Bld) [Volume fraction]29.0 %Low36.0-46.0[facility] CampusHemoglobin (Bld) [Mass/Vol]8.6 g/dLLow11.5-15.5SSaint Joseph Hospital of KirkwoodMCH26.5 gIAhjeig20.0-34.0[facility] County Memorial HospitalHC (RBC) [Mass/Vol]29.7 g/dLLow30.5-36.0[facility] CampusMCV (RBC) [Entitic vol]89.2 vFDtatws93.0-100.0[facility] CampusPlatelet mean volume (Bld) [Entitic vol]11.2 fLNormal9.0-12.7[facility] HospitalPlatelets (d) [#/Vol]165 10*3/rMMaxeqk024-421Qppuaxktgud HospitalRBC (d) [#/Vol]3.25 10*6/uL Low3.90-5.20SCox Walnut Lawn (d) [#/Vol]4.26 10*3/uLNormal3.70-11.00 [facility] CampusNADVENTHEALTH PORTER PROGon 48-98-6272IJNKCKP PROGHNO ID: [id number] Author: Carolina Lowry RN Service: ? Author Type: Registered Nurse Type: Nursing Progress Note Filed: 11/10/2020 9:53 AM Note Text: Nursing Progress Note Patient Name: Maricarmen Anderson [facility] Daily Note:Nursing assessment completed see NPR. No signs of distress. This note was completed by: Carolina PetersonCarondelet Health [id number] ID: [id number] Author: Luz Watson RD Service: Nutrition Therapy [...] by: Weight loss;Patient/family self-report;Nausea;Vomiting Estimated kilocalorie needs: 9462-9448 kcal/day Calorie Calculation Method: 15-20 kcals/kg Estimated protein needs (grams): 76-100 gm protein/day Grams protein determined by: 1.3 - 1.7 g/kg;[place] body weight Care Plan: Continue current diet [...] protein shake. She ate 1 serving of portuguese toast this morning and had emesis following. [...] November 10, 2020 TIME: 12:50 PM PAGER: [phone] HospitalUrinalysis with Microscopic on 81-22-0808Ficaqahd0+ /HPFCritically abnormalNegativeShannibal regional hospital Hospital Bilirubin, UrineNegativeNormalNegativeSoutinova [facility] hospital HospitalCastSEE COMMENTNormal0 [facility] HospitalComment on above:Result Comment: 0Clarity (U)ClearNormal ClearSouniversity of missouri children's hospital HospitalColor (U)YellowNormalYellowSouniversity of missouri [facility] HospitalCrystals LM Nom (Urine sed)SEE COMMENTCritically abnormalNegativeShannibal regional hospital Hospital Comment on above:Result Comment: 2+ Calcium OxalateEpithelial cells LM Ql (Urine sed)SEE COMMENTCritically abnormal OccasionalSaint John'S Hospital HospitalComment on above:Result Comment: 1+ Squamous Epithelial CellsGlucose Ql (U)NegativeNormalNegativeShannibal regional hospital HospitalHemoglobin/Blood,UrNegativeNormalNegativeS[facility]in[facility] HospitalKetones Ql (U)TraceCritically abnormalNegativeShannibal regional hospital HospitalLeukest1+Critically abnormalNegativeShannibal regional hospital HospitalMucus Ql (Urine sed)1+NormalSouthencompass health rehabilitation hospital of shelby county HospitalNitrite Ql (U)NegativeNormalNegativeShannibal regional hospital HospitalpH (U)6.5 [pH] Normal5.0-8.0[facility] HospitalProtein, UrineTraceCritically abnormalNegative [facility] CampusRBC3-5Critically abnormal0-3[facility] HospitalSpecific [place], Ur1.152Uzgsir7.005-1.030SoMissouri Southern HealthcareUrobilinogen Qn (U)1.0 {José'U}/dLNormal0.2-1.0SoMissouri Southern HealthcareNbkdttdlILZ12-70Frpkportpa abnormal0-5 [facility] CampusXR LUMBAR 2V AP/LATon 30-04-9862UY LUMBAR 2V AP/LAT* * *Final Report* * * DATE OF EXAM: Nov 09 2020 11:44PM SPX 5229 - XR LUMBAR 2V AP/LAT / PROCEDURE REASON: Back pain, prior surgery, new or progressive sx * * * * Physician Interpretation * * * * RESULT: EXAMINATION: XR THORACIC 2V AP/LAT, XR LUMBAR 2V AP/LAT HISTORY: mid back pain (accession [id number]), back pain (accession [id number]) Mid-back/T-spine pain, initial exam. TECHNIQUE: XR THORACIC [...] MD on Nov 10 2020 7:09AM EST [id number] HospitalXR THORACIC 2V AP/LATon 06-55-7278TO THORACIC 2V AP/LAT* * *Final Report* * * DATE OF EXAM: Nov 09 2020 11:44PM SPX 5262 - XR THORACIC 2V AP/LAT / PROCEDURE REASON: Mid-back/T-spine pain, initial exam * * * * Physician Interpretation * * * * RESULT: EXAMINATION: XR THORACIC 2V AP/LAT, XR LUMBAR 2V AP/LAT HISTORY: mid back pain (accession [id number]), back pain (accession [id number]) Mid-back/T-spine pain, initial exam. TECHNIQUE: XR THORACIC [...] MD on Nov 10 2020 7:09AM EST [id number] Louis University Health Science Center 69-75-1374CPCPAL HEALTHHNO ID: [id number] Author: Uzair Betts Service: Radiology Author Type: Threading Machine Operator Type: Allied Health Filed: 11/09/2020 [...] BY: Uzair Betts November 09, 2020 7:55 AMNMercy hospital springfield ID: [id number] Author: Uzair Betts Service: Radiology Author Type: Threading Machine Operator Type: Allied Health Filed: 11/09/2020 [...] BY: Uzair Betts November 09, 2020 7:51 AMNormalSalem Memorial District Hospital Cultureon 33-97-1085Vcdtorel identified Cx Nom (Bld)Culture Result - No growth 5 daysNormBoone Hospital CenterComment on above:Performed By: #### BLCUL ####[facility] [place], [place] [phone] identified Cx Nom (Bld)Additional Testing - Methicillin [...] back by: Nika Gore RN [facility] --> ABNORMAL ALERT [address] Surg 11/11/20 Anson Sharpe --> ABNORMAL [...] to and read back by: LAURYN QUINN [facility] --> ABNORMAL ALERT 11/11/20 at 0523 to MORIS --> ABNORMAL ALERT --> ABNORMAL ALERTCritically abnormalSouthpointe HospitalComment on above: Performed By: #### BLCUL ####[facility] Bcwt[address]abihyn[address] [place] [employer], [place] [phone] and Differentialon 34-51-5415Vqg Baso <0.03Normal<0.11[facility] CampusAbs Mono0.29 k/uLNormal<0.87[facility] CampusAbs Neut3.25 k/uLNormal1.45-7.50[facility] HospitalAbsolute nRBC<0.01 Normal<0.01[facility] CampusBasophils/100 WBC (Bld)0.4 %NormalResearch Medical Center-Brookside CampusDTYPEAuto DiffNormalS[facility]inova [facility] hospital HospitalEosinophils (Bld) [#/Vol]0.04 10*3/uLNormal<0.46[facility] HospitalEosinophils/100 WBC (Bld)0.8 %Normal [facility] CampusErythrocyte distribution width (RBC) [Ratio]16.3 %High 11.5-15.0[facility] CampusHematocrit (Bld) [Volume fraction]31.9 %Low 36.0-46.0[facility] CampusHemoglobin (Bld) [Mass/Vol]9.6 g/dLLow11.5-15.5 [facility] CampusLymphocytes (Bld) [#/Vol]1.33 10*3/uLNormal1.00-4.00 [facility] CampusLymphocytes/100 WBC (Bld)26.9 %NormalResearch Medical Center-Brookside CampusMCH 26.0 qOSltkqo41.0-34.0[facility] CampusMCHC (RBC) [Mass/Vol]30.1 g/dLLow 30.5-36.0[facility] CampusMCV (RBC) [Entitic vol]86.4 oIHnwvgg30.0-100.0 [facility] CampusMonocytes/100 WBC (Bld)5.9 %NormalResearch Medical Center-Brookside Campus Neutrophils/100 WBC (Bld)66.0 %NormalResearch Medical Center-Brookside CampusNRBCs0.0 /100 WBCNormal 0[facility] HospitalPlatelet mean volume (Bld) [Entitic vol]11.0 fLNormal 9.0-12.7[facility] HospitalPlatelets (Bld) [#/Vol]173 10*3/rRJbndgc613-858 [facility] HospitalRBC (Bld) [#/Vol]3.69 10*6/uLLow3.90-5.20SSaint Joseph Hospital of KirkwoodWBC (Bld) [#/Vol]4.95 10*3/uLNormal3.70-11.00[facility] HospitalCTA ABD/PELV W IVCONon 82-82-2789REJ ABD/PELV W IVCON* * *Final Report* * [...] EST [id number] HospitalCTA CHEST (NONGATED) W IVCONon 13-95-9073WSP CHEST (NONGATED) W IVCON* * *Final Report* [...] MD on Nov 09 2020 10:53AM EST [id number] Island Hospital Metabolic Panelon 86-25-1477Erwwcon [Mass/Vol]3.9 g/dLNormal3.5-5.0[facility] HospitalALP [Catalytic activity/Vol]56 U/JTekgee69-185Jrypzsaxaax HospitalALT [Catalytic activity/Vol]9 U/LNormal7-38[facility] HospitalAnion gap [Moles/Vol]9 mmol/L Normal0-15[facility] HospitalAST [Catalytic activity/Vol]16 U/XOisdqb56-76 [facility] HospitalBilirubin [Mass/Vol]0.5 mg/dLNormal0.2-1.3[facility] HospitalCalcium [Mass/Vol]9.4 mg/dLNormal8.5-10.2[facility] HospitalChloride [Moles/Vol]110 mmol/BUmbt33-496Aoouqtsmjnv HospitalCO2 [Moles/Vol]21 mmol/LLow 22-30[facility] HospitalCreatinine [Mass/Vol]0.75 mg/dLNormal0.58-0.96 [facility] HospitaleGFR- Amer.>60NormalShannibal regional hospital HospitaleGFR-All Other Races>60NormalShannibal regional hospital HospitalComment on above:Result Comment: eGFR [...] not accurately reflect actual GFR.Glucose [Mass/Vol]91 mg/dLNormal 74-99[facility] HospitalPotassium [Moles/Vol]3.6 mmol/LLow3.7-5.1[facility] HospitalProtein [Mass/Vol]6.6 g/dLNormal6.3-8.0[facility] HospitalSodium [Moles/Vol]140 mmol/FSysxuw391-172Uniogtduwnj HospitalUrea nitrogen [Mass/Vol]17 mg/dLNormal7-21SoMissouri Southern HealthcareD dimeron 1D deedu326 ng/mL FEUHigh <500[facility] CampusComment on above:Result Comment: 500 ng/mL FEU is [...] al. Kellen Int Med 2016 165:253.ED NOTEon 89-85-0884LP NOTEHNO ID: [id number] Author: Yaya Singletary RN Service: ? Author Type: Registered Nurse Type: ED Notes Filed: 11/09/2020 1:34 PM Note Text: Report called to Abbey RN. All questions addressed. Vitals updated. Family at bedside. Pt NAD at this time. This RN at bedside to transport pt. Floor nurse aware of blood cultures and covid in process.[facility] NOTEHNO ID: [id number] Author: Yaya Singletary RN Service: ? Author Type: Registered Nurse Type: ED Notes Filed: 11/09/2020 7:44 AM Note Text: Portable CXR at bedside.[facility] NOTEHNO ID: [id number] Author: Yaya Singletary RN Service: ? Author Type: Registered Nurse Type: ED Notes Filed: 11/09/2020 7:18 AM Note Text: Assumed care of patient from Traci DIEGO. Pt in room standing up at bedside with emesis bag. NAD or active vomiting at this time. Joy PAULSON in room to talk with patient.[facility] CenterED NOTEHNO ID: [id number] Author: Connie Vazquez RN Service: ? 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, 2013, also on OCPs - Eosinophilic esophagitis - Gastroparesis - GERD (gastroesophageal reflux disease) - History of gastric bypass complications - Obesity, Class III, BMI 40-49.9 (morbid obesity) ([facility]) - Port-A-Cath in place patients right upper [...] (more content not included)...NormalSouthpointe Hospital HISTORY PHYSICALon 08-28-3571DVFNYIG PHYSICALHNO ID: [id number] Author: Ashley Loo MD Service: General Surgery [...] 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, 2013, also on OCPs - Eosinophilic esophagitis - Gastroparesis - GERD (gastroesophageal reflux disease) - History of gastric bypass complications - Obesity, Class III, BMI 40-49.9 (morbid obesity) ([facility]) - Port-A-Cath in place patients right upper [...] content not included)...NormalSouthpointe HospitalHigh Sens Troponin Ton 84-02-0245Npey Sensitivity TNT6 ng/LNormal<12Southpoint HospitalComment on above:Result Comment: [...] risk for 30 day MACE.High Sensitivity TNT6 ng/LNormal<12SoCarondelet Health on above:Result Comment: When assessing risk for [...] risk for 30 day MACE.Intermed Rapid COVIDon 84-89-8800WWPV-CoV-2 (COVID-19) RNA CRISTINA+probe Ql (Unsp spec)Nasopharyngeal Swab NormalSoSt. Louis VA Medical Centerment on above:Performed By: #### ITCOVD ####[id number] [place], [place] [phone] 62-8027RGFV-JsL-2 (COVID-19) RNA CRISTINA+probe Ql (Unsp spec)Negative for COVID19 (SARS CoV2) by RT-PCR or equivalent method.NormalNegative for COVID19 (SARS CoV2) by RT-PCR or equivalent method.[facility] on above:Result Comment: This test was developed and its performance characteristics determined by [facility] [place]. This test has been authorized by FDA under an Emergency Use Authorization (EUA). This test has been validated in accordance with the FDA's Guidance Document Policy for DiagnosticsTesting in Laboratories Certified to Perform High Complexity Testing under CLIA prior to Emergency use Authorization for Coronavirus Disease 2019 during the Public Health Emergency issued on August 20, 2019. Test performed by [facility], [facility]ology [facility] [place], [address] [place], [place] [address].Performed By: #### ITCOVD ####[place] [id number] [place], [place] [phone] 49-71-5682Gvwaux [Catalytic activity/Vol]21 U/MWoykzz58-67CnirwxqpepoSaint John's Health System 11-09-2020 NURSING [facility] ID: [id number] Author: Saskia Cm RN Service: ? Author Type: Registered Nurse Type: Nursing Progress Note Filed: 11/10/2020 6:04 AM Note Text: Nursing Progress Note Patient Name: Maricarmen Anderson Patient Location: [place] Daily Note: Received report from LAURYN Joel. 2020: Assessment completed, patient states feeling better than she did earlier today. Safety maintained, will continue to monitor. 2215: Observed patient asleep. 0005: Patient back up to floor from radiology. 0200: Observed patient asleep. 0309: Blood work collected. 0500: Observed patient asleep. 0603: Patient rates pain 8/10; paged resident. This note was completed by: Saskia WilderChristian Hospital ID: [id number] Author: Wisam Carvajal RN Service: ? Author Type: Registered Nurse Type: Nursing Progress Note Filed: 11/09/2020 7:00 PM Note Text: Nursing Progress Note Patient Name: Maricarmen Anderson Patient Location: [place] Daily Note: 1454: assessment complete, patient complains of severe left flank pain and nausea, will continue to monitor 1845: Blood cultures collected and sent to lab This note was completed by: Wisam OwensCoxHealth ID: [id number] Author: Wisam Carvajal RN Service: ? Author Type: Registered Nurse Type: Nursing Progress Note Filed: 11/09/2020 5:16 PM Note Text: Nursing Progress Note Patient Name: Maricarmen Anderson Patient [facility]: [facility]- Transfer Note: Patient transferred into room/unit 931 in stable condition. Actions taken: No futher actions taken at this time. Will continue to monitor and check with patient. This note was completed by: Wisam CarvajalNoParkland Health CenterUrinalysis with Microscopicon 52-12-0598Isdrffgo2+ /HPFCritically abnormalNegative Southhighland parke HospitalBilirubin, UrineNegativeNormalNegativeSoutCedar County Memorial Hospital CastSEE XPFUUVAEsrhnk3Seypjuhmipw HospitalComment on above:Result Comment: 0 Clarity (U)Slightly CloudyCritically abnormalClearSoutinova fairfax hospital HospitalColor (U) YellowNormalYellowSaint John'S Hospital HospitalEpithelial cells LM Ql (Urine sed)SEE COMMENTCritically abnormalOccasionalShannibal regional hospital HospitalComment on above:Result Comment: 2+ Squamous Epithelial CellsGlucose Ql (U)NegativeNormalNegativeSoutinova fairfax hospital HospitalHemoglobin/Blood,UrNegativeNormalNegativeSoutinova fairfax hospital HospitalKetones Ql (U)NegativeNormalNegativeSoutCedar County Memorial HospitalLeukest1+Critically abnormal NegativeSoutinova fairfax hospital HospitalNitrite Ql (U)NegativeNormalNegativeShannibal regional hospital HospitalpH (U)6.5 [pH]Normal5.0-8.0Southencompass [facility] rehabilitation [facility] HospitalProtein, UrineTrace Critically abnormalNegativeSSaint Joseph Hospital of KirkwoodVspwdsfmCPU6-9Xfldxg1-3Lbwwyclkjpb HospitalSpecific [place], Ur>=1.670Wdqhjt1.005-1.030SoMissouri [facility] Urobilinogen Qn (U)2.0 {José'U}/dLHigh0.2-1.0[facility] CampusWBC6-10 Critically abnormal0-5SSaint Joseph Hospital of KirkwoodUrine Cultureon 59-20-7646Eytqrlam identified Cx Nom (U)Sp. Request/Comment: - Best [...] Culture Result - <10,000 CFU/ml Normal urogenital floraNormalSSaint Joseph Hospital of KirkwoodComment on above:Performed By: #### URCUL ####[facility] [address] [place], [place] [phone] CHEST 1V FRONTAL PORTon 18-55-9795MM CHEST 1V FRONTAL PORT* * *Final Report* [...] on Nov 09 2020 7:59AM EST [id number] DePaul Health CenterPNon 42-51-4184MQWVDqulkfdzb (GENSSP) MARICARMEN ANDERSON ([id number]) 1980 F T Date Time Provider Department 11/08/20 CLEMENTE JOHNSON During your visit today, we recorded the following information about you: BYRON Richter 11/08/2020 9:29 AM Signed Called PCP office (Dr Viktor Bradford) [phone] is out of the office this week. Asked if Nurse could fax copies of recent lab work, imaging that may have been done while patient was recently hospitalized last week. BYRON Richter CT 11/09/2020 8:17 AM Signed Outside records received and scanned to RPO Forwarded to Dr Johnson. BYRON Richter Allergies [...] 05/25/2020 Encounter Status:Closed by NICOLETTE SAHNI on 11/09/20NoBellevue HospitalTEJALon 30-34-2247UAZDFzrbslvki (GENSSP) MARICARMEN ANDERSON ([id number]) 1980 F T Date Time Provider Department [...] Fully Assessed Reason for Visit: Patient Question [2717] Prescriptions as of 11/05/2020 Sig: LORAZEPAM 0.5 [...] Encounter Status:Closed by CARLOS ALBERTO SIMMONS on 11/07/20[facility] HospitalToya [id number] (NSCAMN) MARICARMEN ANDERSON ([id number]) 1980 F T Date Time Provider Department 10/30/20 EMELIA BALDWIN NSCAMN During your visit today, we recorded the following information about you: Urmila Hein Adm 2020 8:29 AM Signed Order Request Caller : Maricarmen Contact Order Being Requested : MRI Cervical Spine Orders need to be placed in [facility] Laith Donaldson RN 2020 12:42 [...] (HCC) [G93.5] Order(s):MRI CERVICAL SPINE WO IVCON [[id number]] Order #: [id number] FUTURE Prescriptions as of 2020 Sig: LORAZEPAM [...] 05/25/2020 Encounter Status:Closed by LAITH DONALDSON on 10/30/20NoProMedica Toledo HospitalRaman [id number] (SPPRAD) MARICARMEN ANDERSON ([id number]) 1980 F [facility] Date Time Provider Department 10/22/20 CLEMENTE [...] Reason for Visit: Radio Imaging Study Comments [1137] Prescriptions as of 10/22/2020 Sig: IV CONTRAST [...] 05/25/2020 Encounter Status:Closed by CLEMENTE JOHNSON on 10/22/20[facility] [id number] (STEPHANIEP) MARICARMEN ANDERSON ([id number]) 1980 F T Date Time Provider Department [...] come to the ER at [facility] if she is dehydrated and a [...] Fully Assessed Reason for Visit: Patient Question [0467] Prescriptions as of 10/08/2020 Sig: ACETAZOLAMIDE 250 [...] 05/25/2020 Encounter Status:Closed by NICOLETTE KING on 10/09/20[facility] Metabolic Panlon 43-47-2092Txovs gap [Moles/Vol]10 mmol/LNormal 0-15[facility] CampusComment on above:Performed By: #### PREALB ####[place] [address] [place], [place] [phone] [Mass/Vol]9.4 mg/dLNormal8.5-10.2SSaint Joseph Hospital of KirkwoodComment on above:Performed By: #### PREALB ####[place] [address] [place] [employer], [place] [phone] [Moles/Vol]110 mmol/GPakt38-220Qpwirdcemgj Hospital Comment on above:Performed By: #### PREALB ####[place] [address] [place], [place] [phone] [Moles/Vol]20 mmol/OLhw56-20 [facility] CampusComment on above:Performed By: #### PREALB ####[place] [address] [place] [employer], [place] [phone] [Mass/Vol]0.75 mg/dLNormal0.58-0.96[facility] HospitalComment on above: Performed By: #### PREALB ####[place] [address] [place] [employer], [place] [phone]-Nxewira Amer.>60NormalShannibal regional hospital HospitalComment on above:Performed By: #### PREALB ####[place] [address] [place] [employer], [place] [phone]-Ort Other Races >60NormalShannibal regional hospital HospitalComment on above:Result Comment: eGFR [...] accurately reflect actual GFR.Performed By: #### PREALB ####[place] [address] [place], [place] [phone] [Mass/Vol]108 mg/gWUgaj72-66Fdoakcqvspk HospitalComment on above: Performed By: #### PREALB ####[place] [address] [place] [employer], [place] [phone] [Moles/Vol]3.6 mmol/LLow3.7-5.1 [facility] CampusComment on above:Performed By: #### PREALB ####[place] [address] [place], [place] [phone] [Moles/Vol]140 mmol/TLnxpqv186-863Ucblkltzuze HospitalComment on above:Performed By: #### PREALB ####[place] [address] [place], [place] [phone] nitrogen [Mass/Vol]12 mg/dLNormal7-21[facility] Comment on above:Performed By: #### PREALB ####[facility] [address] [place], [place] [phone] MANAGEMon 82-32-9875PIYR MANAGENO ID: [id number] Author: Wiliam Santamaria Service: Case Management Author [...] the process utilized to ensure compliance with [facility] policy regarding Inpatient Admission and Observation [...] of concurrence.NormalSouthpointe HospitalCASE MGT INYANIQUE PATEL on 80-17-8925QFQM MGT INYANIQUE GOODWIN ID: [id number] Author: Anaid (Rn) LAURYN Valencia Service: ? 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 Last discharge within 30 days: No Advance Directive: Current Advance Directive: None Distribution Technician Attempted to Assist with AD Completion: [...] supplies Has the Patient Been in a Prison Facility in the Past 30 days?: No [...] Mostly I feel financially burdened by my zdt-nj-nwugts expenses for my prescription medication:: 0 - Disagree Mostly Risk Score: 0 Patient is categorized as: Low risk < 2 Are you interested in bedside delivery of your medications? Not known ASSESSMENT AND PLAN: Medical Needs: Medical Needs: Two or more chronic diseases;Nutritional Nutrition Needs: Tube Feed Psychosocial Needs: Psychosocial Needs: None FREEDOM OF CHOICE EXPLAINED: [place] of Choice Given: No (No new placeement needed and to continue with [facility]) POTENTIAL TRANSITION PLANS Home Care;Home Care Pharmacy Patient's young son lives with her, and when asked, she states that she is independent. Patient is on home enteral tube feedings via jejunostomy and here for malfunctioning tube. Provider is [place] and referral sent. Patient is independent with [...] 29, 2020 TIME: 11:04 AM PAGER/CONTACT #: [phone]inte Hospital 09-29-2020 Absolute nRBC<0.01Normal<0.01SoMissouri Southern HealthcareComment on above:Performed By: #### PREALB ####[facility] [address] [place] [employer], [place] [phone] distribution width (RBC) [Ratio]15.3 %High11.5-15.0 [facility] CampusComment on above:Performed By: #### PREALB ####[facility] [address] [place] [employer], [place] [phone] (Bld) [Volume fraction]30.3 %Low36.0-46.0[facility] HospitalComment on above: Performed By: #### PREALB ####[place] [address] [place] [address] [phone] (Bld) [Mass/Vol]9.1 g/dLLow 11.5-15.5[facility] hospital HospitalComment on above:Performed By: #### PREALB ####[place] [address] [place] [address] [phone] pGLow26.0-34.0[facility] HospitalComment on above:Performed By: #### PREALB ####[place] [address] [place] [address] [phone] (RBC) [Mass/Vol]30.0 g/dLLow30.5-36.0[facility] Hospital Comment on above:Performed By: #### PREALB ####[place] [address] [place] [address] [place] [phone] (RBC) [Entitic vol]86.3 fLNormal 80.0-100.0[facility] CampusComment on above:Performed By: #### PREALB ####[place] [address] [place] [phone] mean volume (Bld) [Entitic vol]10.6 fLNormal9.0-12.7[facility] HospitalComment on above:Performed By: #### PREALB ####[place] [address] [place] [address] [phone] (Bld) [#/Vol]170 10*3/zDQuhdow921-959Nyukqlesmon HospitalComment on above:Performed By: #### PREALB ####[place] [address] [place] [address] [phone] (Bld) [#/Vol]3.51 10*6/uLLow3.90-5.20[facility] Comment on above:Performed By: #### PREALB ####[facility] [address] [place], [place] [phone] (Bld) [#/Vol]6.60 10*3/uLNormal 3.70-11.00[facility] CampusComment on above:Performed By: #### PREALB ####[facility] [address] [place], [place] [phone] 09-36-9189WWMMUSH ID: [id number] Author: Maynor Manley DO Service: General Surgery [...] Anderson DATE: September 29, 2020 TIME: 11:09 [facility] ABD/PEL WO IVCONon 12-18-2741XZ ABD/PEL WO IVCON* * *Final Report* * [...] Tissues: No acute abnormality. Lower thorax: Unremarkable. Recovery Rn (topogram) images: No additional findings. IMPRESSION: Retracted [...] MD on Sep 28 2020 11:12PM EST [id number] health rehabilitation hospital of shelby county HospitalCoronavirus 2019on 09-29-2020 SARS-CoV-2 (COVID-19) RNA CRISTINA+probe Ql (Unsp spec)Nasopharyngeal SwabNormal [facility] CampusComment on above:Performed By: #### COVID ####[facility] [place], [place] [phone]-FiT-3 (COVID-19) RNA CRISTINA+probe Ql (Unsp spec)NegativeNormalNegative for COVID19 (SARS CoV2) by PCR.[facility] CampusCompromedica [facility] on above:Result Comment: This test was developed and its performance characteristics determined by [facility] [place]. This test has been authorized by FDA under an Emergency Use Authorization (EUA). This test has been validated in accordance with the FDA's Guidance Document Policy for DiagnosticsTesting in Laboratories Certified to Perform High Complexity Testing under CLIA prior to Emergency use Authorization for Coronavirus Disease 2019 during the Public Health Emergency issued on August 20, 2019. Test performed by [facility], [facility] [place], [address], [place] [address].Performed By: #### COVID ####[facility] [address] [place], [place] [phone] NOTEon 07-15-9676EK NOTEHNO ID: [id number] Author: Soco (Rn) LAURYN Bardales Service: ? Author Type: Registered Nurse Type: ED Notes Filed: 09/28/2020 11:04 PM Note Text: covid obtained and sent.[facility] PROGo 09-29-2020 NURSING PRONO ID: [id number] Author: Mercy VasquezRn) LAURYN Whitaker Service: ? Author Type: Registered Nurse Type: Nursing Progress Note Filed: 09/29/2020 12:51 PM Note Text: Nursing Progress Note Patient Name: Maricarmen Anderson Patient Location: [place] Daily Note: patient resting in bed, made NPO for removal of J-tube. This note was completed by: Mercy Whitaker RNAudrain [facility] NURSING PRONO ID: [id number] Author: Anne-Marie VasquezRn) LAURYN Farley Service: Nursing Author Type: Registered Nurse Type: Nursing Progress Note Filed: 09/29/2020 7:33 AM Note Text: Nursing Progress Note Patient Name: Maricarmen Anderson Patient Location: [facility] [place] Daily Note: 0054 Pt arrived in room, oriented to floor and room, safety maintained. 0100 Pt has a fever tylenol given. 0733 Report given to Mercy (Lauryn). This note was completed by: Paty PereraCarondelet Health [id number] ID: [id number] Author: Molly Tello) Gurpreet Service: Nutrition Therapy Author Type: Registered Dietitian Type: Nutrition Filed: 09/29/2020 11:21 AM Note Text: NUTRITION THERAPY INITIAL ASSESSMENT SERVICE DATE: 09/29/2020 SERVICE TIME: 11:13 AM Nutrition Assessment: Recommended Malnutrition Diagnosis: No Malnutrition Identified Nutrition Diagnosis: Problem: Inadequate Enteral Nutrition Infusion Related to: Mechanical cause As evidenced by: Patient/family self-report Estimated kilocalorie needs: 2269 Calorie Calculation Method: [place] (with activity factor) (1.3) Estimated protein needs (grams): 77-100 Grams protein determined by: 1.3 - 1.7 g/kg;[place] body weight Care Plan: Advance diet to [...] September 29, 2020 TIME: 11:13 AM PAGER: [phone]d Health CenterPrealbuminon 09-29-2020 Prealbumin [Mass/Vol]21 mg/yCEzscsy57-54Aguljjhdbpj HospitalComment on above: Performed By: #### PREALB ####[facility] [address] [place] [employer], [place] [phone] and Differentialon 39-87-4255Sqd Baso <0.03Normal<0.11[facility] HospitalAbs Mono0.28 k/uLNormal<0.87[facility] HospitalAbs Neut5.26 k/uLNormal1.45-7.50[facility] HospitalAbsolute nRBC<0.01 Normal<0.01[facility] CampusBasophils/100 WBC (Bld)0.3 %NormalResearch Medical Center-Brookside CampusDTYPEAuto DiffNormalSoutinova fairfax hospital HospitalEosinophils (Bld) [#/Vol]0.04 10*3/uLNormal<0.46[facility] HospitalEosinophils/100 WBC (Bld)0.6 %Normal [facility] CampusErythrocyte distribution width (RBC) [Ratio]15.2 %High 11.5-15.0[facility] HospitalHematocrit (Bld) [Volume fraction]31.5 %Low 36.0-46.0[facility] HospitalHemoglobin (Bld) [Mass/Vol]9.3 g/dLLow11.5-15.5 [facility] HospitalLymphocytes (Bld) [#/Vol]0.93 10*3/uLLow1.00-4.00[facility] HospitalLymphocytes/100 WBC (Bld)14.2 %NormalResearch Medical Center-Brookside CampusMCH25.6 pGLow 26.0-34.0[facility] CampusMCHC (RBC) [Mass/Vol]29.5 g/dLLow30.5-36.0 [facility] CampusMCV (RBC) [Entitic vol]86.8 dCHyeemj76.0-100.0[facility] HospitalMonocytes/100 WBC (Bld)4.3 %NormalSaint John'S Hospital HospitalNeutrophils/100 WBC (Bld)80.6 %NormalResearch Medical Center-Brookside CampusNRBCs0.0 /100 ZQTQkqiqq6Futotppjrbo HospitalPlatelet mean volume (Bld) [Entitic vol]10.4 fLNormal9.0-12.7[facility] HospitalPlatelets (Bld) [#/Vol]186 10*3/aCFsrrhq644-802Ohmkdocsfdu HospitalRBC (Bld) [#/Vol]3.63 10*6/uLLow3.90-5.20[facility] HospitalWBC (Bld) [#/Vol]6.54 10*3/uLNormal3.70-11.00[facility] CampusCNPNon 68-82-9702VCROFeesyvovl (GENSSP) MARICARMEN ANDERSON ([id number]) 1980 [address] [facility] Date Time Provider Department 09/28/20 CLEMENTE [...] Fully Assessed Reason for Visit: Patient Question [7437] Primary Visit Diagnosis:Gastrojejunostomy tube dislodgement [T85.528A] Order(s):XR ABDOMEN 1V SUPINE [[id number]] Order #: [id number] FUTURE Prescriptions as of 09/28/2020 Sig: ACETAZOLAMIDE [...] 05/25/2020 Encounter Status:Closed by NICOLETTE KING on 09/28/20[facility] 27-20-8573DEQYILZUTC ID: [id number] Author: Elissa Medina MD Service: General Surgery [...] 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, 2013, also on OCPs - Eosinophilic esophagitis - Gastroparesis - GERD (gastroesophageal reflux disease) - History of gastric bypass complications - Obesity, Class III, BMI 40-49.9 (morbid obesity) ([facility]) - Port-A-Cath in place patients right upper [...] significant neck swelling RESPIRATO (more content not included)...NormalSouthDCH Regional Medical Center Metabolic Panelon 22-05-2644Tdfuojv [Mass/Vol]4.3 g/dLNormal3.5-5.0[facility] ALP [Catalytic activity/Vol]72 U/MIwxlad11-296Drrrmjfvycr HospitalALT [Catalytic activity/Vol]11 U/LNormal7-38[facility] HospitalAnion gap [Moles/Vol]11 mmol/L Normal0-15[facility] HospitalAST [Catalytic activity/Vol]19 U/NUkcoto71-46 [facility] HospitalBilirubin [Mass/Vol]0.4 mg/dLNormal0.2-1.3[facility] HospitalCalcium [Mass/Vol]9.6 mg/dLNormal8.5-10.2[facility] HospitalChloride [Moles/Vol]110 mmol/DAalo63-552Eizwcvqlmic HospitalCO2 [Moles/Vol]18 mmol/LLow 22-30[facility] HospitalCreatinine [Mass/Vol]0.68 mg/dLNormal0.58-0.96 [facility] CampuseGFR- Amer.>60NormalShannibal regional hospital HospitaleGFR-All Other Races>60NormalShannibal regional hospital HospitalComment on above:Result Comment: eGFR [...] not accurately reflect actual GFR.Glucose [Mass/Vol]97 mg/dLNormal 74-99[facility] HospitalPotassium [Moles/Vol]3.8 mmol/LNormal3.7-5.1[facility] HospitalProtein [Mass/Vol]7.3 g/dLNormal6.3-8.0[facility] HospitalSodium [Moles/Vol]139 mmol/FVpuvet057-170Xqlbpcvlmrr HospitalUrea nitrogen [Mass/Vol]14 mg/dLNormal7-21[facility] HospitalED NOTEon 75-04-4542UT NOTEHNO ID: [id number] Author: Arminda Coffey) LAURYN Wong Service: ? Author Type: Registered Nurse Type: ED Notes Filed: 09/28/2020 9:17 PM Note Text: Pt has finished Contrast via tubeNormalSSamaritan Hospital NOTEHNO ID: [id number] Author: Keven (Rn) LAURYN Reid Service: ? [...] rails up x2. Call bagley within reach.Normal [facility] PROV NOTEon 17-19-7492IH PROV NOTEHNO ID: [id number] Author: LORENE Singleton Service: Emergency Medicine Author Type: Physician Lap Hand Tool Type: ED Provider Notes Filed: 09/28/2020 11:36 [...] Obesity, Class III, BMI 40-49.9 (morbid obesity) ([facility]) - Port-A-Cath in place patients right upper [...] of movement of the (more content not included)...NormalSouniversity of missouri [facility] hospital HospitalLipaseon 05-53-9864Oalyxm [Catalytic activity/Vol]30 U/LSgqsjs25-27Ljvdmszfavo HospitalBasic Metabolic Panlon 49-78-4865Povhz gap [Moles/Vol]10 mmol/LNormal0-15[facility] HospitalCalcium [Mass/Vol]9.2 mg/dLNormal8.5-10.2[facility] HospitalChloride [Moles/Vol]106 mmol/SIzis59-050Ciyhhnnwpvt HospitalCO2 [Moles/Vol]23 mmol/FQdgeio04-59 [facility] HospitalCreatinine [Mass/Vol]0.78 mg/dLNormal0.58-0.96SoMissouri Southern HealthcareeGFR- Amer.>60NormalSoutCedar County Memorial HospitaleGFR-All Other Races>60 NormalResearch Medical Center-Brookside CampusComment on above:Result Comment: eGFR (Estimated GFR) Units of measure: mL/min/1.73 meters squared eGFR is derived from the reexpressed MDRD Study equation using the following parameters: serum creatinine, age, gender and race. The creatinine assay has been calibrated to be traceable to [facility]. An eGFR <60 mL/min/1.73m2 for >3 months is consistent with chronic kidney disease. Refer to KDOQI guidelines for clinical interpretation. In patients with unstable renal function, e.g. those with acute kidney injury, the eGFR may not accurately reflect actual GFR.Glucose [Mass/Vol]88 mg/dLNormal 74-99[facility] HospitalPotassium [Moles/Vol]3.9 mmol/LNormal3.7-5.1[facility] HospitalSodium [Moles/Vol]139 mmol/NNwvkdg321-135Zkqkzgaagdc HospitalUrea nitrogen [Mass/Vol]8 mg/dLNormal7-21[facility] CampusCBC and Differentialon 66-43-5003Xuf Baso<0.03Normal<0.11[facility] CampusAbs Mono0.33 k/uLNormal <0.87[facility] CampusAbs Neut2.58 k/uLNormal1.45-7.50[facility] Absolute nRBC<0.01Normal<0.01[facility] CampusBasophils/100 WBC (Bld)0.5 % NormalResearch Medical Center-Brookside CampusDTYPEAuto DiffNormalSoutinova fairfax hospital HospitalEosinophils (Bld) [#/Vol]0.08 10*3/uLNormal<0.46[facility] HospitalEosinophils/100 WBC (Bld)1.9 %NormalResearch Medical Center-Brookside CampusErythrocyte distribution width (RBC) [Ratio] 13.5 %Uoihim94.5-15.0[facility] HospitalHematocrit (Bld) [Volume fraction]27.4 %Low36.0-46.0[facility] HospitalHemoglobin (Bld) [Mass/Vol]8.4 g/dLLow11.5-15.5 [facility] CampusLymphocytes (Bld) [#/Vol]1.25 10*3/uLNormal1.00-4.00 [facility] CampusLymphocytes/100 WBC (Bld)29.3 %[facility] 27.6 hUPlamnu98.0-34.0[facility] HospitalHC (RBC) [Mass/Vol]30.7 g/dLNormal 30.5-36.0[facility] HospitalV (RBC) [Entitic vol]90.1 tMMcsrkr41.0-100.0 [facility] CampusMonocytes/100 WBC (Bld)7.7 %[facility] Neutrophils/100 WBC (Bld)60.6 %[facility] CenterNRBCs0.0 /100 WBCNormal 0[facility] HospitalPlatelet mean volume (Bld) [Entitic vol]10.9 fLNormal 9.0-12.7[facility] HospitalPlatelets (Bld) [#/Vol]148 10*3/kZKzf104-011 [facility] HospitalRBC (Bld) [#/Vol]3.04 10*6/uLLow3.90-5.20SSaint Joseph Hospital of KirkwoodWBC (Bld) [#/Vol]4.27 10*3/uLNormal3.70-11.00[facility] CampusCNDSon 22-10-0979NWBDMQX ID: [id number] Author: Deirdre Dejesus Service: General Surgery Author [...] 1 Suppository by RECTAL (more content not included)...[facility] NURSING PROGon [id number] PRORADHA ID: [id number] Author: Mitchel VasquezRnNorth Larry RN Service: Nursing Author Type: Registered Nurse Type: Nursing Progress Note Filed: 05/29/2020 3:35 PM Note Text: Nursing Progress Note Patient Name: Maricarmen Anderson Patient Location: [place]/ [place]-2 0730 Assumed care of patient after report from night RN. 1311 tube feed rate increased to goal rate of 55 ml/hr. Dr. Johnson (PCP) plans to discharge today. No distress at this time. Patient expressing eagerness to go home [address] Johnson he is to have internet assessor write up discharge order and instructions. This note was completed by: Paty LoeraParkland Health Center NUTRITIONon [id number] ID: [id number] Author: Maricarmen Santiago Service: Nutrition Therapy Author Type: Registered Dietitian Type: Nutrition Filed: 05/29/2020 11:16 AM Note Text: NUTRITION THERAPY PROGRESS NOTE SERVICE DATE: 05/29/2020 SERVICE TIME: 11:15 AM Nutrition Assessment: Recommended Malnutrition Diagnosis: Mild Protein-Calorie Malnutrition (05/26/20 1142 : Molly (Maik) Gurpreet) Estimated kilocalorie needs: 2040 Calorie Calculation Method: [place]-. [place] (with activity factor)(1.2 AF) Estimated protein [...] Tube Feeding;Diet Diet: per physician Enteral/Tube Feedings: Bouf Peptide 1.5 @ 55 ml/hr Interval History:Pt started on TF Bouf Peptide 1.5. Currently running at 40 ml/hr [...] May 29, 2020 TIME: 11:15 AM PAGER: [phone]d Health CenterANES POSTPROC EVALon [id number] POSTPROC EVALHNO ID: [id number] Author: Dennis Coulter Service: ? Author Type: [...] May 28, 2020 TIME: 12:32 PM CSN: [id number] Area Regional Medical Center PRE-OPon 05-28-2020 ANES PRE-OPHNO ID: [id number] Author: Dennis Coulter Service: ? Author Type: [...] Jejunal Tube, Goal r (more content not included)...[facility] Basic Metabolic Panlon 69-08-8415Dvqmw gap [Moles/Vol]7 mmol/LNormal0-15 [facility] HospitalCalcium [Mass/Vol]9.1 mg/dLNormal8.5-10.2[facility] HospitalChloride [Moles/Vol]106 mmol/IPtzh77-371Mnjrtbdvxna HospitalCO2 [Moles/Vol]29 mmol/OHsffvn60-65Tkndzpvqush HospitalCreatinine [Mass/Vol]0.68 mg/dLNormal0.58-0.96[facility] CampuseGFR- Amer.>60NormalShannibal regional hospital HospitaleGFR-All Other Races>60NormalShannibal regional hospital HospitalComment on above:Result Comment: eGFR [...] not accurately reflect actual GFR.Glucose [Mass/Vol]86 mg/dLNormal 74-99[facility] CampusPotassium [Moles/Vol]3.4 mmol/LLow3.7-5.1[facility] HospitalSodium [Moles/Vol]142 mmol/SAlhscu205-869Viakzglrjml HospitalUrea nitrogen [Mass/Vol]6 mg/dLLow7-21[facility] CampusCBC and Differentialon 90-16-9756Nnl Baso0.03 k/uLNormal<0.11[facility] CampusAbs Mono0.26 k/uL Normal<0.87[facility] CampusAbs Neut2.02 k/uLNormal1.45-7.50[facility] CampusAbsolute nRBC<0.01Normal<0.01[facility] CampusBasophils/100 WBC (Bld) 0.9 %NormalResearch Medical Center-Brookside CampusDTYPEAuto DiffNormalSSaint Joseph Hospital of [facility] Eosinophils (Bld) [#/Vol]0.06 10*3/uLNormal<0.46[facility] Eosinophils/100 WBC (Bld)1.8 %NormalResearch Medical Center-Brookside CampusErythrocyte distribution width (RBC) [Ratio]13.4 %Eooeug17.5-15.0[facility] CampusHematocrit (Bld) [Volume fraction]26.2 %Low36.0-46.0[facility] CampusHemoglobin (Bld) [Mass/Vol]8.2 g/dLLow11.5-15.5[facility] HospitalLymphocytes (Bld) [#/Vol]0.97 10*3/uLLow1.00-4.00[facility] CampusLymphocytes/100 WBC (Bld)29.0 %Normal [facility] CampusMCH27.8 vZUycrry60.0-34.0[facility] CampusMCHC (RBC) [Mass/Vol]31.3 g/eLKxfzpx76.5-36.0[facility] CampusMCV (RBC) [Entitic vol] 88.8 aZVrorgj69.0-100.0[facility] CampusMonocytes/100 WBC (Bld)7.8 %Normal [facility] CampusNeutrophils/100 WBC (Bld)60.5 %[facility] NRBCs0.0 /100 KWFIjoroh1Pxcpfuwbebs HospitalPlatelet mean volume (Bld) [Entitic vol]10.7 fLNormal9.0-12.7[facility] HospitalPlatelets (Bld) [#/Vol]157 10*3/uL Zlskdv009-609Xicnypzsxva HospitalRBC (Bld) [#/Vol]2.95 10*6/uLLow3.90-5.20 [facility] CampusWBC (Bld) [#/Vol]3.34 10*3/uLLow3.70-11.00[facility] CampusNURSING PROGon [id number] PRORADHA ID: [id number] Author: Leander (Rn) Sivakumar RN Service: ? Author Type: Registered Nurse Type: Nursing Progress Note Filed: 05/29/2020 8:02 AM Note Text: Nursing Progress Note Patient Name: Maricarmen Anderson Patient Location: [place] Daily Note: 1929 Report received from LAURYN Ho and barry and care of pt assumed 1944 Safety check performed 2117 Pt assessment completed and pt medicated appropriately 199 Pt is asleep with no signs of distress at this time. Call bagley in reach 729 Report given to LAURYN Mcdonough/Radu This note was completed by: Leander Shaver, [facility] H[facility] ID: [id number] Author: Albania VasquezRn) LAURYN King Service: ? Author Type: Registered Nurse Type: Nursing Progress Note Filed: 05/28/2020 12:43 PM Note Text: Nursing Progress Note Patient Name: Maricarmen Anderson Patient Location: SP SURGERY CTR POOL/ SURG CTR PO* Daily Note: Verbal order from Dr. Gold for fentanyl and zofran IV for patient's pain and nausea. This note was completed by: ALBANIA King, LAURYNAud[facility] NURSING PRONO ID: [id number] Author: Georgia VasquezRnNorth Mcnair RN Service: Nursing Author Type: Registered Nurse Type: Nursing Progress Note Filed: 05/28/2020 5:11 PM Note Text: Nursing Progress Note Patient Name: Maricarmen Anderson Patient Location: / [place] Daily Note: 0700 Report received from LAURYN [...] This note was completed by: Georgia Mcnair, LAURYNNormalSFulton Medical Center- [facility] and Differentialon 12-12-4070Uck Baso<0.03Normal<0.11[facility] CampusAbs [place] 0.29 k/uLNormal<0.87[facility] CampusAbs Neut2.00 k/uLNormal1.45-7.50 [facility] CampusAbsolute nRBC<0.01Normal<0.01[facility] Basophils/100 WBC (Bld)0.3 %[facility]rain Medical CenterDTYPEAuto DiffNormal [facility] CampusEosinophils (Bld) [#/Vol]0.08 10*3/uLNormal<0.46[facility] CampusEosinophils/100 WBC (Bld)2.2 %[facility] Medical CenterErythrocyte distribution width (RBC) [Ratio]13.6 %Vuokmp89.5-15.0[facility] Hematocrit (Bld) [Volume fraction]25.7 %Low36.0-46.0[facility] Hemoglobin (Bld) [Mass/Vol]8.0 g/dLLow11.5-15.5SSaint Joseph Hospital of KirkwoodLymphocytes (Bld) [#/Vol]1.34 10*3/uLNormal1.00-4.00[facility] CampusLymphocytes/100 WBC (Bld)36.0 %NormalResearch Medical Center-Brookside CampusMCH27.9 sPJoweau46.0-34.0[facility] County [facility] HospitalHC (RBC) [Mass/Vol]31.1 g/iTNadmqv97.5-36.0[facility] CampusMCV (RBC) [Entitic vol]89.5 sSCtvruy29.0-100.0[facility] CampusMonocytes/100 WBC (Bld)7.8 %NormalResearch Medical Center-Brookside CampusNeutrophils/100 WBC (Bld)53.7 %Normal [facility] CampusNRBCs0.0 /100 KMCNalxud4Immbxqmbdei HospitalPlatelet mean volume (Bld) [Entitic vol]10.6 fLNormal9.0-12.7[facility] CampusPlatelets (Bld) [#/Vol]150 10*3/yAXpzorv898-657Mbtmfvswveh HospitalRBC (Bld) [#/Vol]2.87 10*6/uLLow3.90-5.20SoutCedar County Memorial HospitalWBC (Bld) [#/Vol]3.72 10*3/uLNormal 3.70-11.00[facility] CampusCT KIDNEY WO/W IVCONon 29-97-8312KR KIDNEY WO/W IVCON* * *Final Report* * * DATE OF EXAM: May 27 2020 12:32PM [facility] [place]/W [...] hypoventilatory changes in the dependent lung bases. Recovery Rn (topogram) images: No additional findings. IMPRESSION: Hypodense [...] MD on May 27 2020 1:14PM EST [id number] Hospital South, [facility] Metabolic Panelon 53-86-1883Vktnrhk [Mass/Vol]3.4 g/dLLow3.5-5.0SoMissouri Southern HealthcareALP [Catalytic activity/Vol]73 U/VNmdznj51-258Orzrtpsfoya HospitalALT [Catalytic activity/Vol] U/LLow7-38Souniversity of missouri children[facility] hospital HospitalAnion gap [Moles/Vol]12 mmol/LNormal0-15 Southencompass [facility] rehabilitation hospital [facility] HospitalAST [Catalytic activity/Vol]15 U/AOkqlwr86-59Fyeiaemszaj HospitalBilirubin [Mass/Vol]0.3 mg/dLNormal0.2-1.3Soutboston university medical center hospitale HospitalCalcium [Mass/Vol]8.8 mg/dLNormal8.5-10.2[facility] HospitalChloride [Moles/Vol]106 mmol/ZQsxn63-499Fsnvmjrsdal HospitalCO2 [Moles/Vol]24 mmol/DIutboc78-94 [facility] HospitalCreatinine [Mass/Vol]0.70 mg/dLNormal0.58-0.96Souniversity of [facility] HospitaleGFR- Amer.>60NormalSoutinova fairfax hospital HospitaleGFR-All Other Races>60 NormalSouniversity of missouri children's hospital HospitalComment on above:Result Comment: eGFR (Estimated [...] not accurately reflect actual GFR.Glucose [Mass/Vol]99 mg/dLNormal 74-99Soun[facility] hospital HospitalPotassium [Moles/Vol]3.6 mmol/LLow3.7-5.1[facility] HospitalProtein [Mass/Vol]5.7 g/dLLow6.3-8.0[facility] HospitalSodium [Moles/Vol]142 mmol/GQrubgn617-744Wtyuuuqxzth HospitalUrea nitrogen [Mass/Vol]5 mg/dLLow7-21Soun[facility] HospitalNURSING PROGon [id number] PROEFRANO ID: [id number] Author: Tacho (Rn) LAURYN Marr Service: ? [...] chart. 2116 Ordered medications given, see eMAR. 2143 Paged general surgery: 721-2, Ungerer- Patient has loraine farms peptide 1.5 ordered, this is not supplied at [facility]. [employer] 1.0 is at bedside, is this okay to use in place? Please advise. Thanks, Kp @ [phone] Tube feed held per orders for EGD, 05/28. This note was completed by: Tacho Marr RNReynolds County General Memorial Hospital ID: [id number] Author: Bibi (Rn) LAURYN Freeman Service: Nursing Author Type: Registered Nurse Type: Nursing Progress Note Filed: 05/27/2020 7:25 PM Note Text: Nursing Progress Note Patient Name: Maricarmen Anderson Patient Location: / [place] Daily Note:0724am updates from shift boss nurse. Iv fluids at 50ml/hr per pt's [...] arrive from dietary. 1925pm updates to shift boss nurse. This note was completed by: Bibi Freeman, RNNormalSSaint Joseph Hospital of KirkwoodCBC and Differentialon 19-02-8882Rlr Baso<0.03Normal<0.11[facility] CampusAbs Mono0.32 k/uLNormal<0.87[facility] CampusAbs Neut1.63 k/uLNormal1.45-7.50 [facility] CampusAbsolute nRBC<0.01Normal<0.01[facility] Basophils/100 WBC (Bld)0.5 %NormalResearch Medical Center-Brookside CampusDTYPEAuto DiffNormal [facility] CampusEosinophils (Bld) [#/Vol]0.07 10*3/uLNormal<0.46[facility] CampusEosinophils/100 WBC (Bld)1.8 %[facility]rain Medical CenterErythrocyte distribution width (RBC) [Ratio]13.6 %Aguyoi31.5-15.0[facility] Hematocrit (Bld) [Volume fraction]27.2 %Low36.0-46.0[facility] Hemoglobin (Bld) [Mass/Vol]8.5 g/dLLow11.5-15.5SSaint Joseph Hospital of KirkwoodLymphocytes (Bld) [#/Vol]1.85 10*3/uLNormal1.00-4.00[facility] CampusLymphocytes/100 WBC (Bld)47.4 %NormalResearch Medical Center-Brookside CampusMCH27.7 tSFmgkwb38.0-34.0[facility] County Memorial HospitalHC (RBC) [Mass/Vol]31.3 g/zVHafsyc69.5-36.0[facility] CampusMCV (RBC) [Entitic vol]88.6 jGXwknjw32.0-100.0Soun[facility] of missouri [facility] hospital HospitalMonocytes/100 WBC (Bld)8.2 %NormalSaint John'S Hospital HospitalNeutrophils/100 WBC (Bld)42.1 %Normal [facility] CampusNRBCs0.0 /100 HOERmpimf5Jjwptciyxxn HospitalPlatelet mean volume (Bld) [Entitic vol]10.4 fLNormal9.0-12.7[facility] HospitalPlatelets (Bld) [#/Vol]150 10*3/qDHvgqnp267-663Ztwvcwklhox HospitalRBC (Bld) [#/Vol]3.07 10*6/uLLow3.90-5.20Southpoint HospitalWBC (Bld) [#/Vol]3.90 10*3/uLNormal 3.70-11.00[facility] CampusCONSULT PROn [id number] PRONO ID: [id number] Author: Raleigh Srivastava DO Service: General Surgery [...] Srivastava DO Pager: DATE: 05/26/2020 TIME: 5:50 [facility] W IVCONon [id number] ABD/PEL W IVCON* * *Final Report* * * DATE OF EXAM: May 26 2020 12:43PM [facility] [place] ABD/PEL W [...] atelectasis. Partially visualized electrodes in the heart. Recovery Rn (topogram) images: No additional findings. IMPRESSION: No [...] be communicated with the ordering provider via [facility] staff message by Imaging Support Services within 2 business days of report finalization. Algorithms for management of incidental imaging findings can be found on the [facility] Intranet Sharepoint site at: [email or web address]%20Incidental%20Findi ngs%20at%20Imaging/Forms/AllItems.aspx Transcribed Using Voice Recognition Transcribe Date/Time: May 26 2020 12:59P Dictated by: ANIKET SIERRA MD This examination was interpreted and the report reviewed and electronically signed by: ANIKET SIERRA MD on May 26 2020 1:24PM EST [id number] ACTIONABLEInvalid Interpretation CodeSoutinova fairfax hospital HospitalComp Metabolic Panelon 41-67-9185Ikusgjh [Mass/Vol]3.6 g/dLNormal3.5-5.0[facility] HospitalALP [Catalytic activity/Vol]79 U/MSupyjh61-830Zxmbijksmfo HospitalALT [Catalytic activity/Vol]6 U/LLow7-38[facility] HospitalAnion gap [Moles/Vol]8 mmol/LNormal 0-15[facility] HospitalAST [Catalytic activity/Vol]13 U/QHxujek77-54Nqutwpuftzm HospitalBilirubin [Mass/Vol]0.4 mg/dLNormal0.2-1.3[facility] HospitalCalcium [Mass/Vol]9.0 mg/dLNormal8.5-10.2[facility] HospitalChloride [Moles/Vol]106 mmol/YZgmt02-059Uxipbgvsnqj HospitalCO2 [Moles/Vol]28 mmol/CVvvpsv22-10 [facility] HospitalCreatinine [Mass/Vol]0.68 mg/dLNormal0.58-0.96Somadison medical centere HospitaleGFR- Amer.>60NormalSoutboston university medical center hospitale HospitaleGFR-All Other Races>60 NormalSouthhighland parke HospitalComment on above:Result Comment: eGFR (Estimated GFR) Units of measure: mL/min/1.73 meters squared eGFR is derived from the reexpressed MDRD Study equation using the following parameters: serum creatinine, age, gender and race. The creatinine assay has been calibrated to be traceable to IDIN. An eGFR <60 mL/min/1.73m2 for >3 months is consistent with chronic kidney disease. Refer to KDOQI guidelines for clinical interpretation. In patients with unstable renal function, e.g. those with acute kidney injury, the eGFR may not accurately reflect actual GFR.Glucose [Mass/Vol]98 mg/dLNormal 74-99Soun[facility] of [facility] HospitalPotassium [Moles/Vol]3.5 mmol/LLow3.7-5.1[facility] HospitalProtein [Mass/Vol]6.1 g/dLLow6.3-8.0Soun[facility] of [facility] HospitalSodium [Moles/Vol]142 mmol/UAzvnzw215-802Ejzpwtvhpkp HospitalUrea nitrogen [Mass/Vol]8 mg/dLNormal7-21[facility] HospitalCoronavirus 2019on 04-99-3819RLBP-CoV-2 (COVID-19) RNA CRISTINA+probe Ql (Unsp spec)Nasopharyngeal SwabNormalSSaint Joseph Hospital of KirkwoodComment on above:Performed By: #### COVID ####[facility] [place], [place] [phone]-MnT-6 (COVID- 19) RNA CRISTINA+probe Ql (Unsp spec)NegativeNormalNegative for COVID19 (SARS CoV2) by PCR.[facility] CampusComment on above:Result Comment: This test was developed and its performance characteristics determined by [facility]'s [facility] [place]. This test has been authorized by FDA under an Emergency Use Authorization (EUA). This test has been validated in accordance with the FDA's Guidance Document Policy for DiagnosticsTesting in Laboratories Certified to Perform High Complexity Testing under CLIA prior to Emergency use Authorization for Coronavirus Disease 2019 during the Public Health Emergency issued on August 20, 2019.Performed By: #### COVID ####[facility] [place], [place] [phone], Serumon 91-83-4923Rvgrgx [Mass/Vol] 5.7 ng/mLNormal>4.7[facility] CampusComment on above:Performed By: #### PTHI, VITD, B1WB ####[address] [phone] A1con 83-91-2526Vydlutu [Mass/Vol]114 mg/dLNormal [facility] CampusComment on above:Result Comment: eAG: (Estimated average glucose) is a calculated value from HgbA1c and is industrial relations representative of the average blood glucose level in the last 2-3 month period.Performed By: #### PREALB, TRANSF #### [place] [phone] (Bld) [Mass fraction]5.6 %Normal4.3-5.6[facility] Comment on above:Result Comment: [place] Diabetes Association guidelines indicate that patients with HgbA1c in the range 5.7-6.4% are at increased risk for development of diabetes, and intervention by lifestyle modification may be beneficial. HgbA1c greater or equal to 6.5% is considered diagnostic of diabetes.Performed By: #### PREALB, TRANSF #### [place] [address] [place] [address] Ucax and TIBCon 94-51-5227Djog [Mass/Vol]20 ug/eRSse46-258 [facility] CampusComment on above:Performed By: #### PTHI, VITD, B1WB ####[place] [address] [place] [employer], [phone] ZYXM803 ug/aBTckvvh855-077Qpwdiwccisq HospitalComment on above:Performed By: #### PTHI, VITD, B1WB ####[place] [address] [place] [employer], [phone] Saturatn6 %Vwu30-52Pcmsmxyhzno HospitalComment on above:Performed By: #### PTHI, VITD, B1WB ####[place] [address] [place] [facility], [phone] 05-26-2020 Lipase [Catalytic activity/Vol]112 U/WKxga17-73Forvvkjmckz HospitalLipid Panel, [place] 42-96-0305Eptxkiitffn [Mass/Vol]188 mg/dLNormal<200[facility] Comment on above:Result Comment: <200 mg/dL, Desirable 200-239 mg/dL, Borderline high >239 mg/dL, HighPerformed By: #### PTHI VITD, B1WB ####[place] [address] [place] AveClevelsloop memorial hospital, [phone] in HDL [Mass/Vol]57 mg/dLNormal>39[facility] CampusComment on above:Result Comment: 40-59 mg/dL, Acceptable >59 mg/dL, High: Negative risk factor for coronary heart disease <40 mg/dL, Low: Positive risk factor for coronary heart diseasePerformed By: #### PTHPRATIK Lazar, B1WB ####[place] [address] [place] [address]Cclerm[facility] hospital, [phone] in LDL [Mass/Vol]113 mg/dLHigh<100[facility] CampusComment on above:Result Comment: <100 mg/dL, Optimal 100-129 mg/dL, Near optimal/above optimal 130-159 mg/dL, Borderline high 160-189 mg/dL, High >189 mg/dL, Very high Secondary prevention optimal LDL Cholesterol levels are recommended to be < 70 mg/dLPerformed By: #### PTHI, VITD, B1WB ####[facility] [address]augwttc[address] [place] AveCclermont county hospital, [phone] TimeBloodNoParkland Health CenterComment on above:Performed By: #### PTHZenon VITD, B1WB ####[facility] [address]exy[address] [place] AveC[place], [phone]:HDL Ratio 1.98Normal<2.54[facility] HospitalComment on above:Result Comment: Reference: 1. National Cholesterol Education Program ATP III Guideline At-A-Glance Quick Desk Reference: National Heart, Lung, and Blood [place]. National Institutes of Health. 2001: NIH Publication No. 01-3305. 2. An International Atherosclerosis Society position paper: global recommendations for the management of dyslipidemia: executive summary, Atherosclerosis. 2014: 232(2):410-413.Performed By: #### PTHI, VITD, B1WB ####[place] [address] [place] [address] [phone] Non HDL Fqrfhgulozj620 mg/dLHigh<130[facility] HospitalComment on above: Performed By: #### PTHI, VITD, B1WB ####[place] [address] [place] [phone]:HDL Ratio3.30Normal<5.10[facility] HospitalComment on above:Performed By: #### PTHI, VITD, B1WB ####[place] [address] [place] AvInverness, [phone] [Mass/Vol]88 mg/dLNormal<150[facility] HospitalComment on above:Result Comment: <150 mg/dL, Normal 150-199 mg/dL, Borderline high 200-499 mg/dL, High >499 mg/dL, Very highPerformed By: #### PTHI, VITD, B1WB ####[place] [address] [place] [employer], [phone] Dyshmllsaqu45 mg/dLNormal<30[facility] HospitalComment on above:Performed By: #### PTHI, VITD, B1WB ####[place] [address] [place], [place] [phone] 36-96-1122Zpgsaahrd [Mass/Vol]2.0 mg/dLNormal 1.7-2.6[facility] CampusNURSBAYSTATE WING [facility] PROGon 84-23-0371BTKAYDT PROGHNO ID: [id number] Author: Tacho Coffey) LAURYN Marr Service: ? Author Type: Registered Nurse Type: Nursing Progress Note Filed: 05/27/2020 4:29 AM Note Text: Nursing Progress Note Patient Name: Maricarmen Anderson Patient Location: / Daily Note: 1935 Assumed care of patient, received report. Assessment complete, see NPR. 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 Thanks, Kp @ [phone] IV fluids reduced to 75 ml/hr will monitor how patient tolerates and notify LIP in AM. 0000 IVF reduced to 50 ml/hr per patient request. 0245 Tube feeding restarted at 10 ml/hr start rate, pt previously was not tolerating feeding. 0400 Pt observed asleep in bed, NAD, IVF and tube feed running. This note was completed by: Tacho Marr RNReynolds County General Memorial Hospital ID: [id number] Author: Bibi (Rn) LAURYN Freeman Service: Nursing Author Type: Registered Nurse Type: Nursing Progress Note Filed: 05/26/2020 7:34 PM Note Text: Nursing Progress Note Patient Name: Maricarmen Anderson Patient Location: / Daily Note:0800am report from shift boss nurse. Pt awake resting in bed. 0955am dietican rounding at bedside. Tf on hold for ct of abd/pelvis. 1140am dr. johnson has rounded per pt. 1150am covid sent as ordered 1325pm pt delcines on starting tube feeding until ct results available. 1603pm pt awake resting in bed. All blood work collected and sent to lab as ordered. 1934pm report to shift boss nurse. This note was completed by: Bibi Freeman RNAudrain Medical Center NURSING PROGHNO ID: [id number] Author: Rosibel Coffey) LAURYN Bonilla Service: Nursing Author Type: Registered Nurse Type: Nursing Progress Note Filed: 05/26/2020 4:08 AM Note Text: Nursing Progress Note Patient Name: Maricarmen Anderson Patient Location: [facility] [place] Daily Note: 2226 Nutren 1.5 hung at 20 ml/hr. 0000 Pt states she cannot tolerate tube feed. She is nauseous. Notified vice president underwriting. OK to hold TF for now. This note was completed by: Paty MartínezParkland Health Center NUTRITIONon 57-95-6338MDTFIKVMWMOK ID: [id number] Author: Molly Tello) Gurpreet Service: Nutrition Therapy [...] nausea and vomiting. She is from the [facility]. She did call her surgeon's service and advised her to come to [facility] to be evaluated. Patient does have [...] in January and was seen in the [facility]. She is now on prophylactic [...] May 26, 2020 TIME: 11:53 AM PAGER: [phone]n County [facility] Hospital, [facility]on 05-26-2020 PTH, Eicfnx208 pg/gWOgua00-32Uejccdhvped HospitalComment on above:Performed By: #### PTHI, VITD, B1WB ####[facility] [place], [phone] 56-32-3357AFV Qn1.040 m[IU]/LNormal0.270-4.200 [facility] CampusComment on above:Result Comment: If the patient is , TSH reference range varies by gestational period: First Trimester (weeks 9-12): 0.180-2.990 mcIU/mL Second Trimester: 0.110-3.980 mcIU/mL Third Trimester: 0.480-4.710 mcIU/mL Jordan Brewer et al. A Practical Approach for the Verifications and Determination of Site- and Trimester-Specific Reference Intervals for Thyroid Function tests in . Thyroid, 2019:29:3:412-420.Raffaele E, et al. 2017 Guidelines of the [place] Thyroid Association for the Diagnosis and Management of Thyroid Disease during and the . Thyroid, 2017:27:3:315-389. Performed By: #### PTHI VITD, B1WB ####[phone] B1, Whole Blon 08-90-3047Rkjcpbr B1 (TDP), WB56.6 nmol/LLow84.0-213.0SoMissouri Southern HealthcareComment on above:Result Comment: This assay measures the concentration of thiamine diphosphate (TDP), the primary active form of vitamin B1. Approximately 90 percent of vitamin B1 present in whole blood is TDP. Thiamine and thiamine monophosphate, which comprise the remaining 10 percent, are not measured. This test was developed and its performance characteristics determined by [facility]'s [facility] [place] ([facility]). It has not been cleared or approved by the FDA. [facility] is regulated under CLIA as qualified to perform high complexity testing. This test is used for clinical purposes. It should not be regarded as investigational or for research.Performed By: #### PTHI VITD, B1WB ####[phone] Vitamin B12on 68-10-3185Sqqxhmzfb (Vitamin B12) [Mass/Vol]247 pg/mLNormal 232-1245[facility] CampusComment on above:Performed By: #### PTHI, VITD, B1WB ####[address] [phone] D 25 Hydroxyon 85-09-1068Mvgknvo D 25 Hydroxy9.6 ng/mL Low31.0-80.0SoMissouri Southern HealthcareComment on above:Result Comment: Classification of 25 [place] Vitamin D status: Insufficiency/Moderate Deficiency: < or = 30 ng/mL Sufficiency/Optimal Levels: 31 to 80 ng/mL Toxicity: > 100 ng/mL Test performed by chemiluminescent immunoassay.Performed By: #### PTHI, VITD, B1WB ####[facility] [address] [place] [employer], [place] [phone] and Differentialon 52-60-0147Hri Baso0.03 k/uLNormal<0.11 [facility] CampusAbs Mono0.28 k/uLNormal<0.87[facility] CampusAbs Neut2.58 k/uLNormal1.45-7.50[facility] CampusAbsolute nRBC<0.01Normal<0.01[facility] CampusBasophils/100 WBC (Bld)0.7 %[facility] Medical CenterDTYPEAuto Diff NormalSaint John'S Hospital HospitalEosinophils (Bld) [#/Vol]0.04 10*3/uLNormal<0.46 [facility] HospitalEosinophils/100 WBC (Bld)1.0 %[facility] Erythrocyte distribution width (RBC) [Ratio]13.4 %Umlimx77.5-15.0[facility] CampusHematocrit (Bld) [Volume fraction]26.8 %Low36.0-46.0[facility] Hemoglobin (Bld) [Mass/Vol]8.6 g/dLLow11.5-15.5[facility] HospitalLymphocytes (Bld) [#/Vol]1.08 10*3/uLNormal1.00-4.00[facility] CampusLymphocytes/100 WBC (Bld)26.9 %[facility] Medical CenterMCH27.7 hJFwerhm64.0-34.0[facility] HospitalHC (RBC) [Mass/Vol]32.1 g/cSNbfbxf48.5-36.0[facility] CampusMCV (RBC) [Entitic vol]86.2 eKDaftpd28.0-100.0[facility] CampusMonocytes/100 WBC (Bld)7.0 %NormalResearch Medical Center-Brookside CampusNeutrophils/100 WBC (Bld)64.4 %Normal [facility] CampusNRBCs0.0 /100 OHFDpopph5Tekvccsocci HospitalPlatelet mean volume (Bld) [Entitic vol]10.4 fLNormal9.0-12.7[facility] HospitalPlatelets (Bld) [#/Vol]170 10*3/uORqetia232-625Tpmsewbxvou HospitalRBC (Bld) [#/Vol]3.11 10*6/uLLow3.90-5.20[facility] HospitalWBC (Bld) [#/Vol]4.02 10*3/uLNormal 3.70-11.00[facility] HospitalCC Profile Ulises SP,MM,EUC For SPT,MMH,EUC use only on 74-40-1238Ppupc TestVenousNormalSSaint Joseph Hospital of KirkwoodJxvfatxfPlvaxxra1Dvcjyj [facility] CampusBase Excess3 mmol/LNormalSaint John'S Hospital HospitalComment on above:Result Comment: -2 TO 2Body srbtmhtutmx24.6 [degF]NormalResearch Medical Center-Brookside CampusCalcium [Moles/Vol]1.20 mmol/LNormal1.09-1.30[facility] Hospital Chloride [Moles/Vol]108 mmol/YGvuruo60-026Gwokqqferhl HospitalDeviceNone seen NormalResearch Medical Center-Brookside CampusDrawsiteVenousNormalShannibal regional hospital HospitalHCO3 (Bld) [Moles/Vol]28 mmol/RZzvx85-85Spykcliltvp HospitalHemoglobin (Bld) [Mass/Vol]8.6 g/dGIar39-84Hwdknuffbtu HospitalLactate [Moles/Vol]1.3 mmol/LNormal0.7-2.5 [facility] CampuspCO246 mm VxXmjipd04-38Crsnqeiiftm HospitalpH (Bld)7.40 [pH] Normal7.32-7.42[facility] CampuspO2BELOW REPORTABLE FMKVQLtibef51-78 [facility] CampusPotassium [Moles/Vol]3.3 mmol/LLow3.5-5.1[facility] HospitalSodium [Moles/Vol]143 mmol/VHwlbfh396-296Szzyzurmfnx HospitalCONSULTon 94-56-9100LKFMURKUWK ID: [id number] Author: Raleigh Srivastava DO Service: General Surgery [...] had a recent traumatic brain injury in [facility] and is on seizure medications now. 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 OPERATOR: Negative for abnormal vaginal bleeding, abnormal vaginal [...] noted Resp: CTA b/l, (more content not included)...NormalSouniversity of [facility]ouri [facility] HospitalComp Metabolic Panelon 78-52-1592Ckqpzti [Mass/Vol]3.8 g/dLNormal3.5-5.0[facility] HospitalALP [Catalytic activity/Vol]82 U/OStgluc42-558Jkoqnrrpuxv HospitalALT [Catalytic activity/Vol]6 U/LLow7-38[facility] HospitalAnion gap [Moles/Vol]10 mmol/LNormal0-15[facility] HospitalAST [Catalytic activity/Vol]14 U/LNormal 13-35[facility] HospitalBilirubin [Mass/Vol]0.3 mg/dLNormal0.2-1.3[facility] HospitalCalcium [Mass/Vol]8.9 mg/dLNormal8.5-10.2[facility] hospitale HospitalChloride [Moles/Vol]107 mmol/RYdwe21-023Kyddoezwfaq HospitalCO2 [Moles/Vol]26 mmol/L Afvgrr08-87Wgsbrpgxlzw HospitalCreatinine [Mass/Vol]0.62 mg/dLNormal0.58-0.96 [facility] HospitaleGFR- Amer.>60NormalSoutboston university medical center hospitale HospitaleGFR-All Other Races>60NormalSoutboston university medical center hospitale HospitalComment on above:Result Comment: eGFR (Estimated GFR) [...] not accurately reflect actual GFR.Glucose [Mass/Vol]88 mg/dLNormal 74-99[facility] HospitalPotassium [Moles/Vol]3.3 mmol/LLow3.7-5.1[facility] HospitalProtein [Mass/Vol]6.4 g/dLNormal6.3-8.0[facility] HospitalSodium [Moles/Vol]143 mmol/GCvxatj504-375Awjkakseyqj HospitalUrea nitrogen [Mass/Vol]10 mg/dLNormal7-21[facility] CampusED NOTEon 22-29-8319JA NOTEHNO ID: [id number] Author: Chavo Maravilla RN Service: ? Author Type: Registered Nurse Type: ED Notes Filed: 05/25/2020 6:05 PM Note Text: Pt to the floor with caregiver, in stable condition, in NAD. Pt's infusion running without difficulty and pt belongings at bedside.[facility] NOTEHNO ID: [id number] Author: Chavo Maravilla RN Service: ? Author Type: Registered Nurse Type: ED Notes Filed: 05/25/2020 6:01 PM Note Text: Report given to Ceasar DIEGO, all questions addressed at this time.[facility] NOTEHNO ID: [id number] Author: Chavo Maravilla RN Service: ? Author Type: Registered Nurse Type: ED Notes Filed: 05/25/2020 3:27 PM Note Text: RT notified of CCVBGNoResearch Medical Center-Brookside Campus NOTEHNO ID: [id number] Author: Chavo Maravilla RN Service: ? Author [...] right chest. Allergies reviewed and allergy band applied.[facility] NOTEHNO ID: [id number] Author: Marycarmen (Rn) LAURYN Hunt Service: ? Author Type: Registered Nurse Type: ED Notes Filed: 05/25/2020 1:50 PM Note Text: Pt given cup to collect urine specimenNoResearch Medical Center-Brookside Campus NOTEHNO ID: [id number] Author: Flaquita (Medic) Charis Service: General Internal Medicine Author Type: Supervisor Cytology and Threading Machine Operator Type: ED Notes Filed: 05/25/2020 1:43 PM Note Text: Pt states she sometimes has a rapid heart rate when she stands to walk. States she had a pacemaker placed in March 2020 at . EKG performed and [facility]: [id number] Author: Marycarmen (Lauryn) LAURYN Hunt Service: ? Author Type: Registered Nurse Type: ED Notes Filed: 05/25/2020 12:43 PM Note Text: Pt c/o nausea, vomiting, ABD pain for the past 2 weeks. She has a J tube, and when ever she pours liquid into it, she vomits.[facility] NOTEon 74-23-0350LA PROV NOTEHNO ID: [id number] Author: Dennis Spence DO Service: Emergency Medicine [...] nausea and vomiting. She is from the [facility]. She did call her surgeon's service and advised her to come to [facility] to be evaluated. Patient does have [...] in January and was seen in the [facility]. She is now on prophylactic [...] 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, 2013, also on OCPs - Eosinophilic esophagitis - Gastroparesis - GERD (gastroesophageal reflux disease) - History of gastric bypass complications - Obesity, Class III, BMI 40-49.9 (morbid obesity) ([facility]) - Port-A-Cath in place patients right upper [...] CRITICAL CARE PROFILE-VE (more content not included)...NormalSouthpointe [facility] 49-27-9527YASMJkmdwqc:Maricarmen Anderson MRN: Height:5' 6 (1.676 m) Weight:220 [...] nausea and vomiting. She is from the [facility]. She did call her surgeon's service and advised her to come to [facility] to be evaluated. Patient does have [...] in January and was seen in the [facility]. She is now on prophylactic [...] and thrombosis of (more content not included)...Normal [facility] HospitalLipaseon 80-21-0907Bsgsdj [Catalytic activity/Vol]54 U/L Xerteq43-89Kxxwkixfcvm HospitalMagnesiumon 52-91-9438Ohlpsnpxo [Mass/Vol]1.9 mg/dLNormal1.7-2.6SoMissouri Southern HealthcareNURSING PROGon 51-88-4440SBDVOKI PROGHNO ID: [id number] Author: Mitchel Coffey) LAURYN Larry Service: Nursing Author Type: Registered Nurse Type: Nursing Progress Note Filed: 05/25/2020 6:27 PM Note Text: Nursing Progress Note Patient Name: Maricarmen Anderson Patient [facility] [place] 1815 patient admitted to room 721-2. Pain reported in upper abdomen 03/31 at this time. Nausea also reported. Calling primary MD for admission orders. Patient has j-tube and uses osmolite when able. No other distress noted at this time. Patient denies SOB or CP. This note was completed by: Jose LoeraParkland Health Center ID: [id number] Author: Michelle VasquezRn) LAURYN Zhang Service: Nursing Author Type: Registered Nurse Type: Nursing Progress Note Filed: 05/25/2020 7:14 PM Note Text: Nursing Progress Note Patient Name: Maricarmen Anderson Patient Location: [place] Transfer Note: Patient transferred into room/unit 721, bed 2 from ED in stable condition. Actions taken: No further actions taken at this time. Will continue to monitor and check with patient. 1912 Nursing admission database completed; STREET SWEEPER medication list updated. This note was completed by: Gigi Gonzálesuniversity health truman medical centersulema HospitalUrinalysis with Microscopicon 73-54-8689Qonxcdjn0+ /HPFCritically abnormalNegative Southpoint HospitalBilirubin, UrineNegativeNormalNegativeSSaint Joseph Hospital of Kirkwood CastSEE VYYXKSUCkjdtf2Qxfyqzcvwjv HospitalComment on above:Result Comment: 0 Clarity (U)Slightly CloudyCritically abnormalClearShannibal regional hospital HospitalColor (U) YellowNormalYellowSouthpointe HospitalCrystals LM Nom (Urine sed)SEE COMMENT Critically abnormalNegativeShannibal regional hospital HospitalComment on above:Result Comment: 3+ Calcium OxalateGlucose Ql (U)NegativeNormalNegativeShannibal regional hospital Hospital Hemoglobin/Blood,UrNegativeNormalNegativeSoutinova [facility] HospitalKetones Ql (U)Trace Critically abnormalNegativeShannibal regional hospital HospitalLeukestTraceCritically abnormal NegativeSoutinova fairfax hospital HospitalNitrite Ql (U)NegativeNormalNegativeShannibal regional hospital HospitalpH (U)6.0 [pH]Normal5.0-8.0[facility] HospitalProtein, UrineNegative NormalNegativeShannibal regional hospital IaknpttpGFE2-7Pvwpzp8-4Hqeeyonntmy HospitalSpecific [place], Ur1.578Hxrjcj9.005-1.030[facility] CampusUrobilinogen Qn (U)1.0 {José'U}/dLNormal0.2-1.0[facility] CampusPudzhhzsKBG7-2Ydggov6-9Kcjmwftaboh HospitalSLEEP CENTER REPORTon 29-55-7220YYDTJLOPENO, [place] [address] SLEEP STUDY REPORT PATIENT NAME: MARICARMEN ANDERSON : 1980 MED REC NO: [id number] ROOM: ACCOUNT NO: [id number] ADMIT DATE: 01/24/2020 PROVIDER: Roseline Mcgowan SLEEP IMPROVEMENT [place] INTERPRETATION OF CLINICAL POLYSOMNOGRAPHY DATE OF STUDY: [...] Please correlate clinically. ROSELINE MCGOWAN ND/V_TTNER_T Doc#: [id number] CC: Roseline McgowanOhioHealth Grady [facility] Metabolic Panlon 01-02-2020 Anion gap [Moles/Vol]5 mmol/LNormal0-15[facility] CampusCalcium [Mass/Vol]9.2 mg/dLNormal8.5-10.2SSaint Joseph Hospital of KirkwoodChloride [Moles/Vol]106 mmol/OGdnc02-704 [facility] CampusCO2 [Moles/Vol]26 mmol/ECdeqso11-51Gaatoibdnwk Hospital Creatinine [Mass/Vol]0.81 mg/dLNormal0.58-0.96[facility] CampusGlucose [Mass/Vol]106 mg/kUTdpi50-12Ymnimigozdt HospitalPotassium [Moles/Vol]3.8 mmol/L Normal3.7-5.1[facility] HospitalSodium [Moles/Vol]137 mmol/UBeklaj650-210 [facility] CampusUrea nitrogen [Mass/Vol]9 mg/dLNormal7-21[facility] CampusCASE MANAGEMon 17-92-6579CDYE MANAGEMHNO ID: [id number] Author: Anaid (Rn) LAURYN Valencia Service: ? [...] Physician Name/Phone: Dr. Bradford Other Caregiver Name/Phone: [facility] TRANSPORTATION ARRANGEMENTS: Transportation Arrangements: Car ADDITIONAL CONTACT RESOURCES: None Patient surgically cleared for discharge and being discharged to home today on enteral tube feedings. [facility] updated and orders to resume tube feedings sent. SIGNATURE: Anaid Valencia RN PATIENT NAME: Maricarmen Anderson DATE: January 02, 2020 TIME: 1:14 PM PAGER/CONTACT #: [phone] [facility] 01-02-2020 CNDSHNO ID: [id number] Author: Clemente Johnson Service: General Surgery Author [...] Out FOLLOW-UP APPOINTMENTS ALREADY SCHEDULED WITH A [facility] PROVIDER: No future appointments. ALLERGIES Allergen [...] #: DATE: January 02, 2020 TIME: 12:33 [facility] 90-09-7155POZXCVA PROGHNO ID: [id number] Author: Kimmie VasquezRn) LAURYN Galo Service: Nursing Author Type: Registered Nurse Type: Nursing Progress Note Filed: 01/02/2020 12:27 PM Note Text: Nursing Progress Note Patient Name: Maricarmen Anderson Patient Location: [place] [address] [id number] Daily Note: 729: received report from Silvia [...] This note was completed by: Kimmie Galo, RNNormalSSaint Joseph Hospital of Kirkwood Basic Metabolic Panlon 19-86-1694Bhjkp gap [Moles/Vol]6 mmol/LNormal0-15 [facility] CampusCalcium [Mass/Vol]9.0 mg/dLNormal8.5-10.2SSaint Joseph Hospital of KirkwoodChloride [Moles/Vol]105 mmol/PDkfkgd06-971Ahooeyghopy HospitalCO2 [Moles/Vol]26 mmol/YMcvowd73-90Dipuckysdgt HospitalCreatinine [Mass/Vol]0.73 mg/dLNormal0.58-0.96[facility] CampusGlucose [Mass/Vol]92 mg/wYUosfxr52-01 [facility] CampusPotassium [Moles/Vol]3.7 mmol/LNormal3.7-5.1SCarondelet Healthodium [Moles/Vol]137 mmol/UXagvfx237-128Namudjeirqv HospitalUrea nitrogen [Mass/Vol]8 mg/dLNormal7-21SoMissouri Southern HealthcareNURSING PROGon 41-77-3241YLWSCNO PROGHNO ID: [id number] Author: Silvia (Rn) LAURYN Marquez Service: ? Author Type: Registered Nurse Type: Nursing Progress Note Filed: 01/02/2020 3:03 AM Note Text: Nursing Progress Note Patient Name: Maricarmen Anderson [place] [address] [address] Daily Note: 1906: Received report from LAURYN [...] monitor This note was completed by: Paty RussellParkland Health Center NURSING [facility] ID: [id number] Author: Khalida VasquezRnNorth Mendes RN Service: Nursing Author Type: Registered Nurse Type: Nursing Progress Note Filed: 01/01/2020 7:23 PM Note Text: Nursing Progress Note Patient Name: Maricarmen Anderson Patient Location: [facility]/ [place] Daily Note: 735 Resumed care for the patient, received updates from Tiny DIEGO. 0745 Tube feed increased to 40 cc/hr. 0915 Assessment unchanged as charted. Safety maintained. 1400 Tube feed increased to 50 cc/hr, patient tolerating them well. 1919 Report given to Silvia DIEGO. This note was completed by: Paty WalkerCox Walnut Lawn 12-26-3411KQKOAX HEALTHHNO ID: [id number] Author: Uzair Hurst (Tech) Service: Radiology Author Type: Threading Machine Operator Type: Allied Health Filed: 12/31/2019 [...] BY: Uzair Hurst December 31, 2019 12:46 AMNormalSouniversity of missouri children's hospital HospitalBasic Metabolic Panlon 13-43-7569Thtqr gap [Moles/Vol]8 mmol/LNormal0-15[facility] HospitalCalcium [Mass/Vol]8.9 mg/dLNormal8.5-10.2[facility] HospitalChloride [Moles/Vol]105 mmol/EVdswxh34-774Piqgvrcqglc HospitalCO2 [Moles/Vol]25 mmol/DLifofy99-80 [facility] HospitalCreatinine [Mass/Vol]0.62 mg/dLNormal0.58-0.96[facility] HospitaleGFR- Amer.>60NormalSoutinova fairfax hospital HospitaleGFR-All Other Races>60 NormalSouniversity of missouri [facility]'s [facility] HospitalComment on above:Result Comment: eGFR (Estimated [...] not accurately reflect actual GFR.Glucose [Mass/Vol]81 mg/dLNormal 74-99[facility] HospitalPotassium [Moles/Vol]3.6 mmol/LLow3.7-5.1Soutboston university medical center hospitale HospitalSodium [Moles/Vol]138 mmol/IRerfgo057-363Rzwxbunlpoe HospitalUrea nitrogen [Mass/Vol]9 mg/dLNormal7-21[facility] HospitalCBCon 27-26-1475Qljjdvlq nRBC<0.01Normal<0.01[facility] CampusErythrocyte distribution width (RBC) [Ratio]13.2 %Ssyqzp10.5-15.0[facility] HospitalHematocrit (Bld) [Volume fraction]28.7 %Low36.0-46.0[facility] HospitalHemoglobin (Bld) [Mass/Vol]9.3 g/dLLow11.5-15.5SSaint Joseph Hospital of KirkwoodMCH29.9 cPEduryu53.0-34.0[facility] HospitalHC (RBC) [Mass/Vol]32.4 g/dPRahmfm00.5-36.0[facility] HospitalV (RBC) [Entitic vol]92.3 oOEcmfrl16.0-100.0[facility] CampusPlatelet mean volume (Bld) [Entitic vol]10.7 fLNormal9.0-12.7[facility] CampusPlatelets (Bld) [#/Vol]151 10*3/lMKpxkmi564-645Qokwqvbwuun HospitalRBC (Bld) [#/Vol]3.11 10*6/uLLow3.90-5.20SSaint Joseph Hospital of KirkwoodWBC (Bld) [#/Vol]5.08 10*3/uLNormal 3.70-11.00[facility] CampusCBC and Differentialon 44-69-3930Rpc Baso0.03 k/uL Normal<0.11[facility] CampusAbs Mono0.49 k/uLNormal<0.87[facility] Abs Neut3.99 k/uLNormal1.45-7.50[facility] CampusAbsolute nRBC<0.01Normal <0.01[facility] CampusBasophils/100 WBC (Bld)0.5 %[facility] DTYPEAuto DiffNormalSoutinova fairfax hospital HospitalEosinophils (Bld) [#/Vol]0.04 10*3/uL Normal<0.46[facility] CampusEosinophils/100 WBC (Bld)0.6 %[facility] Medical CenterErythrocyte distribution width (RBC) [Ratio]13.1 %Gbiffn10.5-15.0 [facility] HospitalHematocrit (Bld) [Volume fraction]30.3 %Low36.0-46.0 [facility] CampusHemoglobin (Bld) [Mass/Vol]9.8 g/dLLow11.5-15.5SSaint Joseph Hospital of KirkwoodLymphocytes (Bld) [#/Vol]1.70 10*3/uLNormal1.00-4.00[facility] Lymphocytes/100 WBC (Bld)27.2 %[facility] HospitalH29.6 pGNormal 26.0-34.0[facility] HospitalHC (RBC) [Mass/Vol]32.3 g/oBDorhtg76.5-36.0 [facility] HospitalV (RBC) [Entitic vol]91.5 qENufqxn09.0-100.0[facility] CampusMonocytes/100 WBC (Bld)7.8 %NormalResearch Medical Center-Brookside CampusNeutrophils/100 WBC (Bld)63.9 %[facility] Medical CenterNRBCs0.0 /100 LSBPeaeyr5Apempacnqsf HospitalPlatelet mean volume (Bld) [Entitic vol]11.0 fLNormal9.0-12.7[facility] HospitalPlatelets (Bld) [#/Vol]177 10*3/uDTdmown852-345Rzsrrwozosg HospitalRBC (Bld) [#/Vol]3.31 10*6/uLLow3.90-5.20SoutCedar County Memorial HospitalWBC (Bld) [#/Vol]6.26 10*3/uLNormal3.70-11.00[facility] CampusCT ABD/PEL W IVCONon 79-34-5113[place] ABD/PEL W IVCON* * *Final Report* * * DATE OF EXAM: Dec 31 2019 12:49AM [facility] [place]BD/PEL W [...] MD on Dec 31 2019 1:31AM EST [id number] Medical Center-Brookside CampusComp Metabolic Panelon 96-60-5443Eropwbf [Mass/Vol]3.8 g/dLNormal3.5-5.0[facility] HospitalALP [Catalytic activity/Vol]70 U/XCtwbut81-273Hhrovuxxmpj HospitalALT [Catalytic activity/Vol]9 U/LNormal7-38[facility] HospitalAnion gap [Moles/Vol]7 mmol/L Normal0-15[facility] HospitalAST [Catalytic activity/Vol]15 U/VNzvcvp44-82 [facility] HospitalBilirubin [Mass/Vol]0.3 mg/dLNormal0.2-1.3[facility] HospitalCalcium [Mass/Vol]9.1 mg/dLNormal8.5-10.2[facility] HospitalChloride [Moles/Vol]105 mmol/FFnwtvf86-007Zshcwxrwpyf HospitalCO2 [Moles/Vol]26 mmol/L Bgrydb29-10Qhdnnbehldn HospitalCreatinine [Mass/Vol]0.60 mg/dLNormal0.58-0.[address] [address] JosephFR- Amer.>60NormalSoutCedar County Memorial HospitaleGFR-All Other Races>60NormalSSaint Joseph Hospital of KirkwoodComment on above:Result Comment: eGFR (Estimated GFR) Units [...] not accurately reflect actual GFR.Glucose [Mass/Vol]84 mg/dLNormal 74-99[facility] HospitalPotassium [Moles/Vol]3.4 mmol/LLow3.7-5.1[facility] HospitalProtein [Mass/Vol]6.2 g/dLLow6.3-8.0[facility] HospitalSodium [Moles/Vol]138 mmol/XHlgwol754-855Ujiufuhtpwh HospitalUrea nitrogen [Mass/Vol]11 mg/dLNormal7-21[facility] CampusCoronavirus 2019on 65-85-2872CTUM-CoV-2 (COVID-19) RNA CRISTINA+probe Ql (Unsp spec)Nasopharyngeal SwabNormBoone Hospital CenterComment on above:Performed By: #### PREALB, TRANSF #### [place] [address] YQSJ-CoV-2 (COVID-19) RNA CRISTINA+probe Ql (Unsp spec)NegativeNormal Negative for COVID19 (SARS CoV2) by PCR.[facility] CampusComment on above: Result Comment: This test was developed and its performance characteristics determined by [facility] [place]. This test has been authorized by FDA under an Emergency Use Authorization (EUA). This test has been validated in accordance with the FDA's Guidance Document Policy for DiagnosticsTesting in Laboratories Certified to Perform High Complexity Testing under CLIA prior to Emergency use Authorization for Coronavirus Disease 2019 during the Public Health Emergency issued on August 20, 2019.Performed By: #### PREALB, TRANSF #### [facility] [address] [place], [place] [address] JF NOTEon 63-75-7446UY NOTEHNO ID: [id number] Author: Paul VasquezRn) LAURYN Culver Service: Emergency Medicine Author Type: Registered Nurse Type: ED Notes Filed: 12/31/2019 12:28 AM Note Text: Patient to CT and then stable for admission to 9th floor, report called to LAURYN Villaseñor. Patient transported with medic, stable at time of transfer from [facility] NOTEHNO ID: [id number] Author: Paul VasquezRn) LAURYN Culver Service: Emergency Medicine Author Type: Registered Nurse Type: ED Notes Filed: 12/30/2019 11:43 PM Note Text: Patient finished contrast, [facility] NOTEHNO ID: [id number] Author: Paul VasquezRn) LAURYN Culver Service: Emergency Medicine Author Type: Registered Nurse Type: ED Notes Filed: 12/30/2019 10:55 PM Note Text: Urine obtained and sentAudrain Medical CenterED NOTEHNO ID: [id number] Author: Paul VasquezRn) LAURYN Culver Service: Emergency Medicine Author Type: Registered Nurse Type: ED Notes Filed: 12/30/2019 10:55 PM Note Text: Covid swab obtained, placed on ice and walked to lab by [facility] PROV NOTEon 12-15-5870UH PROV NOTEHNO ID: [id number] Author: Milton Kate MD Service: Emergency Medicine [...] 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, 2013, also on OCPs - Eosinophilic esophagitis - Gastroparesis - GERD (gastroesophageal reflux disease) - History of gastric bypass complications - Obesity, Class III, BMI 40-49.9 (morbid obesity) ([facility]) - Port-A-Cath in place patients right upper [...] with verbal and written (more content not included)...NormalSoMissouri Southern Healthcare Ferritinon 45-44-6629Bxxpqhnz [Mass/Vol]10.5 ng/mLLow14.7-205.1SoutCedar County Memorial HospitalFerritin [Mass/Vol]13.6 ng/mLLow14.7-205.1SSaint Joseph Hospital of KirkwoodComment on above:Performed By: #### PREALB, TRANSF #### [facility] [address] [place], [place] [address]HISTORY PHYSICALon 72-93-3139FVLZMQP PHYSICALHNO ID: [id number] Author: Raleigh Srivastava DO Service: General Surgery [...] 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, 2013, also on OCPs - Eosinophilic esophagitis - Gastroparesis - GERD (gastroesophageal reflux disease) - History of gastric bypass complications - Obesity, Class III, BMI 40-49.9 (morbid obesity) ([facility]) - Port-A-Cath in place patients right upper [...] or palpitations GI: See HPI : Negative COAL TOWER OPERATOR: Negative for abnormal vaginal bleeding, abnormal vaginal [...] s1 and s2 no (more content not included)...NormalResearch Medical Center-Bro[facility]side Campus Lipaseon 78-00-3161Cjpyku [Catalytic activity/Vol]33 U/QIleoxd70-11Vhrafmixhhj HospitalMagnesiumon 56-68-2230Acgnqehbm [Mass/Vol]1.8 mg/dLNormal1.7-2.6 [facility] PROGon 53-46-9720NQAGOER PROGHNO ID: [id number] Author: Tiny (Rn) LAURYN Chamberlain Service: Nursing Author Type: Registered Nurse Type: Nursing Progress Note Filed: 01/01/2020 3:51 AM Note Text: Nursing Progress Note Patient Name: Maricarmen Anderson Patient Location[place]/ 1919 Received report from prior RN. Patient is in the bed resting with no signs of distress. All personal possessions are within reach. Needs are met at this time. Bed is low and locked. Bed alarm is on. 1920 Requested phenergan from pharmacy. 0000 Tube feed increased to 30 ml/hr 0200 pt sleeping This note was completed by: Paty SoriaChristian Hospital ID: [id number] Author: Khalida Mendes RN Service: Nursing Author Type: Registered Nurse Type: Nursing Progress Note Filed: 12/31/2019 7:28 PM Note Text: Nursing Progress Note Patient Name: Maricarmen Anderson Patient Location[place] Daily Note: 714 Received report from Sheyla DIEGO. 0850 Assessment completed as charted. Patient complains of nausea and pain. Call light within reach and bed in lowest position will continue to monitor. 1100 Diet advanced to full liquids. 1115 Tube feed started. 1730 Tube feed increased to 20 cc/hr. 1924 Report given to Tiny DIEGO. This note was completed by: Paty WalkerChristian Hospital ID: [id number] Author: Sheyla Martinez Service: ? Author Type: Registered Nurse Type: Nursing Progress Note Filed: 12/31/2019 5:17 AM Note Text: Nursing Progress Note Patient Name: Maricarmen Anderson Patient Location[place] Transfer Note: Patient transferred into room/unit 906 in stable condition. Actions taken: No futher actions taken at this time. Will continue to monitor and check with patient. Patient belongings with patient This note was completed [facility]: [facility]: [id number] Author: Sheyla Martinez Service: ? Author Type: Registered Nurse Type: Nursing Progress Note Filed: 12/31/2019 5:16 AM Note Text: Nursing Progress Note Patient Name: Maricarmen Anderson Patient Location: [facility]/ [place] Daily Note: 0027 received report from Paul WILSON, patient going to CT before coming to floor 0045 patient on floor 0048assessment complete, see NPR. Patient's belongings, call light are with in reach. Bed is locked and in lowest position. Patient in no distress at this time. This note was completed by: [facility] on [id number] ID: [id number] Author: Molly Vázquez Service: Nutrition Therapy Author Type: Registered Dietitian Type: Nutrition Filed: 12/31/2019 11:54 AM Note Text: NUTRITION THERAPY INITIAL ASSESSMENT SERVICE DATE: 12/31/2019 SERVICE TIME: 11:52 AM Nutrition Assessment: Recommended Malnutrition Diagnosis: No Malnutrition Identified Nutrition Diagnosis: Problem: Suboptimal protein/energy intake Related to: Inability to consume sufficient nutrients As evidenced by: Patient/family self-report;Nausea;Vomiting Estimated kilocalorie needs: 2436-1788 Calorie Calculation Method: 15-20 kcals/kg Estimated protein needs (grams): 71-89 Grams protein determined by: 1.2-1.5 g/kg;[place] Body Weight Care Plan: Continue current diet [...] of Inflammation: Chronic condition SIGNATURE: Molly Vázquez, MS,RD,LD,[facility] PATIENT NAME: Maricarmen Anderson DATE: December 31, 2019 TIME: 11:51 AM PAGER: [phone] HospitalPhosphoruson 12-31-2019 Phosphate [Mass/Vol]3.7 mg/dLNormal2.7-4.8[facility] HospitalPrealbuminon 47-28-2805Djcuorqlid [Mass/Vol]20 mg/lFNvlxpa15-34Gonycvtdbug HospitalComment on above:Performed By: #### PREALB, TRANSF #### [facility] [address] [address] Hujwvasrtmzuu [id number] [Mass/Vol]266 mg/rAIrmxoz387-318 [facility] CampusComment on above:Performed By: #### PREALB, TRANSF #### [facility] [address] [address] Awwesctiqg with Microscopicon 33-22-5641Pofrlipnn Crystal2+Normal [facility] HospitalBacteria4+ /HPFCritically abnormalNegativeShannibal regional hospital HospitalBilirubin, UrineNegativeNormalNegativeSoutinova fairfax hospital HospitalCastSEE KBDMJMYGfblko3Oywqquiejqj HospitalComment on above:Result Comment: 0Clarity (U) CloudyCritically abnormalClearShannibal regional hospital HospitalColor (U)YellowNormalYellow [facility] HospitalEpithelial cells LM Ql (Urine sed)SEE COMMENTCritically abnormalOccasionalShannibal regional hospital HospitalComment on above:Result Comment: 4+ Squamous Epithelial CellsGlucose Ql (U)NegativeNormalNegativeSoutinova fairfax hospital HospitalHemoglobin/Blood,UrNegativeNormalNegativeSoutboston university medical center hospitale HospitalKetones Ql (U)TraceCritically abnormalNegativeShannibal regional hospital HospitalLeukest2+Critically abnormalNegativeSoutinova fairfax hospital HospitalNitrite Ql (U)NegativeNormalNegative [facility] HospitalpH (U)7.0 [pH]Normal5.0-8.0[facility] HospitalProtein, UrineNegativeNormalNegativeSSaint Joseph Hospital of KirkwoodTwijlcpcJFY5-0Esfpso3-7Whldrkpnzyp HospitalSpecific [place], Ur1.262Axkpfe2.005-1.030[facility] Urobilinogen Qn (U)1.0 {José'U}/dLNormal0.2-1.0[facility]ok[facility] CampusWBC6-10 Critically abnormal0-5[facility] HospitalPROGRESSon 73-54-8293VQUZLUQCMEK ID: [id number] Author: Emelia Baldwin Service: ? Author Type: [...] 6 hours as needed. OBJECTIVE: PHYSICAL EXAM: [facility] 05/18/2019 GENERAL APPEARANCE: Well nourished, well developed, [...] 2019 TIME: 1:00 PM PAGER: Emelia Baldwin MDSolomon Carter Fuller Mental Health Centeron [id number] (NSFRVW) MARICARMEN ANDERSON ([id number]) 1980 F T Date Time Provider Department 09/13/19 EMELIA BALDWIN NSFRVW During your visit today, we recorded the following information about you: [facility] 09/13/2019 3:55 PM Signed Patient has been identified by name and date of : Yes Type of form: Usp Disability Form received via: Fax When form is completed, fax form to fax number provided. [phone] Form has been forwarded to: Nurse Robert [...] 09/20/2019 2:30 PM Signed Per Duane at [facility] at [phone] what is the status of the prison disability forms sent to us? Katelynn Joseph Sec 09/27/2019 2:21 PM Addendum Duane, from [facility], called again, last call 09-16-19, what is the status of prison disability forms for patient? 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 Keno Clerk: PSCB Transcribe Date/Time: May 13 2019 12:52P Dictated by : JON OSBORNE MD This examination was interpreted and the report reviewed and electronically signed by: JON OSBORNE MD on May 13 2019 1:16PM EST [id number] Vital Signs Date TimeVital SignValuePerforming HhishimafBejqrauy95-30-0217 13:40-0400 Diastolic blood zrnlokqk63 mm[Hg]Viktor Bradford MD Work Phone: 1(696)[address]05-29-2025 13:40-0400 Heart rate84 /Perico Bradford MD Work Phone: 1(221)[address] [place], [place] 5627405-29-2025 13:40-0400 Respiratory rate16 /Perico Bradford MD Work Phone: 1(670)[address] [place], [place] 5627405-29-2025 13:40-0400 SaO2% (BldA) [Mass fraction]98 %Viktor Bradford MD Work Phone: 1(159)[address]05-29-2025 13:40-0400 Systolic blood dihrogiy473 mm[Hg]Viktor Bradford MD Work Phone: 1(697)[address]05-29-2025 12:55-0400 Body laikxeizefq26.3 [degF]Viktor Bradford MD Work Phone: 1(727)06[address]05-29-2025 12:55-0400 Inhaled oxygen flow rate8 L/minViktor Bradford MD Work Phone: 1(385)[address]05-29-2025 09:40-0400 Body xozdoq419.64 cmViktor Bradford MD Work Phone: 1(959)[address]05-29-2025 09:40-0400 Body nwehob911.93 kgViktor Bradford MD Work Phone: 1(800)23[address]05-19-2025 15:00-0400 Body ahvbwx815.64 cmViktor Bradford MD Work Phone: 1(667)[address]05-19-2025 15:00-0400 Body mass index (BMI) [Ratio]41.9 kg/m8PrfljmViktor Bradford MD Work Phone: 1(967)[address] [place], [place] 5627405-19-2025 15:00-0400 Body drvqbsunrpw26.5 [degF]Viktor Bradford MD Work Phone: 1(248)[address] [place], [place] 5627405-19-2025 15:00-0400 Body jcjemx853.93 kgViktor Bradford MD Work Phone: 1(103)[address] [place], [place] 5627405-19-2025 15:00-0400 Diastolic blood eugvtfdd10 mm[Hg]Viktor Bradford MD Work Phone: 1(557)[address] [place], [place] 5627405-19-2025 15:00-0400 Heart rate75 /minViktor Bradford MD Work Phone: 1(889)[address] [place], [place] 5627405-19-2025 15:00-0400 SaO2% (BldA) [Mass fraction]99 %Viktor Bradford MD Work Phone: 1(164)[address] [place], [place] 5627405-19-2025 15:00-0400 Systolic blood rapnkrtl938 mm[Hg]Viktor Bradford MD Work Phone: 1(193)[address] [place], [place] 5627412-20-2024 09:33-0500 Body jxcaed452.64 cmViktor Bradford MD Work Phone: 1(199)[address] [place], [place] 5627412-20-2024 09:33-0500 Body mass index (BMI) [Ratio]43.4 kg/z7VdwhswViktor Bradford MD Work Phone: 1(833)[address] [place], [place] 5627412-20-2024 09:33-0500 Body ecujok318.01 kgViktor Bradford MD Work Phone: 1(366)[address] [place], [place] 5627412-20-2024 09:33-0500 Diastolic blood sbgfrsby95 mm[Hg]Viktor Bradford MD Work Phone: 1(920)[address] [place], [place] 5627412-20-2024 09:33-0500 Heart rate93 /minViktor Bradford MD Work Phone: 1(503)[address]12-20-2024 09:33-0500 Systolic blood bzzhylbl34 mm[Hg]Viktor Bradford MD Work Phone: 1(345)[address]05-23-2024 13:23-0400 Body ubjeza433.64 cmMD Viktor Bradford Work Phone: 1(108)[address]05-23-2024 13:23-0400 Body mass index (BMI) [Ratio]41.1 kg/m2MD Viktor Bradford Work Phone: 1(079)[address]05-23-2024 13:23-0400 Body ybtxnf531.66 kgMD Viktor Bradford Work Phone: 1(411)[address]05-23-2024 13:23-0400 Diastolic blood bvzbkkoh67 mm[Hg]MD Viktor Bradford Work Phone: 1(242)[address]05-23-2024 13:23-0400 Heart rate81 /minMD Viktor Bradford Work Phone: 1(649)23553 [address]05-23-2024 13:23-0400 Systolic blood aobzwwid558 mm[Hg]MD Viktor Bradford Work Phone: 1(606)[address]08-02-2023 06:55-0400 Body .64 cmMD Viktor Bradford Work Phone: 1(187)[address]08-02-2023 06:55-0400 Body alvdzj596.86 kgMD Viktor Bradford Work Phone: 1(353)[address]08-01-2023 08:36-0400 Body gyjsaz731.64 cmViktor Bardford Work Phone: 1(754) [phone]-Thduo [facility] [address] DO Work Phone: 1(725) 207-483908-01-2023 08:36-0400Body mass index (BMI) [Ratio] 39.06 kg/w3QqfdznViktor Bradford Work Phone: 1(693) [phone]-Qleps [facility] [address] DO Work Phone: 1(594)[phone]-2654 08:36-0400Body surface area Derived from formula2.17 p0XhhjkjViktor Bradford Work Phone: mp538-9955OW-Mqlyb [facility] DO Work Phone: 1(445) 156-900008-01-2023 08:36-0400Body dmihfq731.77 kgViktor Bradford Work Phone: mp325-7499AJ-YdboqSwift County [facility] Servicesyria [facility] DO Work Phone: 1(308)617-50314-890234-91370417-90-9204 08:36-0400Diastolic blood spovngfl89 mm[Hg] Viktor Bradford Work Phone: mp476-7186RY-OkbgqSwift County Benson Health Servicesyria [facility] DO Work Phone: 1(948) 280-899808-01-2023 08:36-0400Respiratory rate60 /minViktor Bradford Work Phone: mp342-5921IQ-FnusjRidgeview Sibley Medical Centeria [facility] DO Work Phone: 1(583)[phone]-0357 08:36-0400Systolic blood ejforlft860 mm[Hg] Viktor Bradford Work Phone: mp787-9342FN-BjkcfRidgeview Sibley Medical Centeria [facility] DO Work Phone: 1(377) 402-426206-26-2023 09:00-0400Body .04 kgMD Viktor Bradford Work Phone: [facility]06-26-2023 07:30-0400 Body shywihxmrkn27.9 [degF]MD Viktor Bradford Work Phone: [facility]06-26-2023 07:30-0400 Diastolic blood ubcddtpx87 mm[Hg]MD Viktor Bradford Work Phone: [facility]06-26-2023 07:30-0400 Heart rate81 /minMD Viktor Bradford Work Phone: [facility]06-26-2023 07:30-0400 SaO2% (BldA) [Mass fraction]100 %MD Viktor Bradford Work Phone: 1(419)[address]06-26-2023 07:30-0400 Systolic blood kculmxwz891 mm[Hg]MD Viktor Bradford Work Phone: 1(111)24[address]06-25-2023 20:18-0400 Respiratory rate16 /minMD Viktor Bradford Work Phone: 1(289)[address] [place], [place] 5627406-23-2023 13:58-0400 Body nkdkec818.64 cmMD Viktor Bradford Work Phone: 1(574)[address] [place], [place] 5627406-22-2023 20:49-0400 Diastolic blood ipaonaba03 mm[Hg]MD Viktor Bradford Work Phone: 1(636)[address] [place], [place] 5627406-22-2023 20:49-0400 Heart rate70 /minMD Viktor Bradford Work Phone: 1(762)[address] [place], [place] 5627406-22-2023 20:49-0400 Respiratory rate18 /minMD Viktor Bradford Work Phone: 1(357)[address] [place], [place] 5627406-22-2023 20:49-0400 SaO2% (BldA) [Mass fraction]99 %MD Viktor Bradford Work Phone: 1(143)[address] [place], [place] 5627406-22-2023 20:49-0400 Systolic blood ijoatsrt985 mm[Hg]MD Viktor Bradford Work Phone: 1(585)[address] [place], [place] 5627406-22-2023 17:43-0400 Body psnakn835.64 cmMD Viktor Bradford Work Phone: 1(371)[address] [place], [place] 5627406-22-2023 17:43-0400 Body rvhnphfpjer68.7 [degF]MD Viktor Bradford Work Phone: 1(447)[address]06-22-2023 17:43-0400 Body .86 kgMD Viktor Bradford Work Phone: 1(738)46[address]05-13-2023 07:24-0400 Body zbsssusouwl23.6 [degF]MD Viktor Bradford Work Phone: 1(863)[address]05-13-2023 07:24-0400 Diastolic blood berxbnis43 mm[Hg]MD Viktor Bradford Work Phone: 1(006)122-[address] [place], [place] 5655005-13-2023 07:24-0400 Heart rate67 /minMD Viktor Bradford Work Phone: 1(875)04153 [address]05-13-2023 07:24-0400 Respiratory rate16 /minMD Viktor Bradford Work Phone: 1(799)[address]05-13-2023 07:24-0400 SaO2% (BldA) [Mass fraction]95 %MD Viktor Bradford Work Phone: 1(323)7[address]05-13-2023 07:24-0400 Systolic blood cpoqengk823 mm[Hg]MD Viktor Bradford Work Phone: 1(556)7[address]05-12-2023 14:36-0400 Body ajkxir105.64 cmMD Viktor Bradford Work Phone: 1(452)[address]05-09-2023 19:02-0400 Body aoycou836.67 kgMD Viktor Bradford Work Phone: 1(537)[address]05-09-2023 17:56-0400 Diastolic blood mm[Hg]MD Viktor Bradford Work Phone: 1(605)65[address]05-09-2023 17:56-0400 Heart rate57 /minMD Viktor Bradford Work Phone: 1(109)57[address]05-09-2023 17:56-0400 Respiratory rate16 /minMD Viktor Bradford Work Phone: 1(389)60[address]05-09-2023 17:56-0400 SaO2% (BldA) [Mass fraction]97 %MD Viktor Bradford Work Phone: 1(743)08[address]05-09-2023 17:56-0400 Systolic blood guhhivxr614 mm[Hg]MD Viktor Bradford Work Phone: 1(315)[address]05-09-2023 14:47-0400 Body jfrbvi428.64 cmMD Viktor Bradford Work Phone: 1(570)290-62[facility]05-09-2023 14:47-0400 Body .8 [degF]MD Viktor Bradford Work Phone: 1(127)803-75[facility]05-09-2023 14:47-0400 Body .25 kgMD Viktor Bradford Work Phone: 1(230)686[facility]59[facility]04-29-2023 19:10-0400 Diastolic blood vavvxiof81 mm[Hg]MD Viktor Bradford Work Phone: 1(013)50053 [address]04-29-2023 19:10-0400 Heart rate71 /minMD Viktor Brdaford Work Phone: 1(424)38553 [address]04-29-2023 19:10-0400 Respiratory rate18 /minMD Viktor Bradford Work Phone: 1(596)[address]04-29-2023 19:10-0400 SaO2% (BldA) [Mass fraction]97 %MD Viktor Bradford Work Phone: 1(788)758[facility]91[facility]04-29-2023 19:10-0400 Systolic blood xoizkkrs286 mm[Hg]MD Viktor Bradford Work Phone: 1(617)62553 [address]04-29-2023 16:53-0400 Body blkqafcidol53 [degF]MD Viktor Bradford Work Phone: 1(153)238-10[facility]04-29-2023 16:51-0400 Body puavnr325.64 cmMD Viktor Bradford Work Phone: 1(356)7[address]04-29-2023 16:51-0400 Body zzxwik998 kgMD Viktor Bradford Work Phone: 1(718)[address]04-09-2023 22:35-0400 Diastolic blood whondbzk87 mm[Hg]MD Viktor Bradford Work Phone: 1(907)165-25[facility]04-09-2023 22:35-0400 Heart rate97 /minMD Viktor Bradford Work Phone: 1(315)481-[address] [place], [place] 5655004-09-2023 22:35-0400 Respiratory rate18 /minMD Viktor Bradford Work Phone: 1(181)453-[address] [place], [place] 5655004-09-2023 22:35-0400 SaO2% (BldA) [Mass fraction]96 %MD Viktor Bradford Work Phone: 1(909)505-69[facility]04-09-2023 22:35-0400 Systolic blood chzpgutq738 mm[Hg]MD Viktor Bradford Work Phone: 1(694)[address]04-09-2023 21:15-0400 Body fvbuenhgckg270.7 [degF]MD Viktor Bradford Work Phone: 1(390)79[address]04-09-2023 19:07-0400 Body vbizrg534.64 cmMD Viktor Bradford Work Phone: 1(988)25[address]04-09-2023 19:07-0400 Body clspaf469 kgMD Viktor Bradford Work Phone: 1(230)[address] [place], [place] 5627403-19-2023 15:07-0400 Body xlfefdpxieq66.8 [degF]MD Viktor Bradford Work Phone: 1(854)[address]03-19-2023 15:07-0400 Diastolic blood htitvwhx35 mm[Hg]MD Viktor Bradford Work Phone: 1(378)30[address]03-19-2023 15:07-0400 Heart rate78 /minMD Viktor Bradford Work Phone: 1(394)18[address]03-19-2023 15:07-0400 SaO2% (BldA) [Mass fraction]96 %MD Viktor Bradford Work Phone: 1(290)[address]03-19-2023 15:07-0400 Systolic blood ckvayvcr450 mm[Hg]MD Viktor Bradford Work Phone: 1(421)[address]03-19-2023 07:30-0400 Respiratory rate16 /minMD Viktor Bradford Work Phone: 1(079)32[address]03-16-2023 14:15-0400 Body djyljk826.64 cmMD Viktor Bradford Work Phone: 1(146)504[facility]61[facility]03-16-2023 02:40-0400 Body yhiqdn266.13 kgMD Viktor Bradford Work Phone: 1(454)[address] [place], [place] 5627402-22-2023 08:18-0500 Body bsurbadsaob46.1 [degF]MD Viktor Bradford Work Phone: 1(554)[address]3453 [address]02-22-2023 08:18-0500 Diastolic blood fuinokrz41 mm[Hg]MD Viktor Bradford Work Phone: 1(963)13[address]02-22-2023 08:18-0500 Heart rate60 /minMD Viktor Bradford Work Phone: 1(001)[address] [place], [place] 5627402-22-2023 08:18-0500 Respiratory rate16 /minMD Viktor Bradford Work Phone: 1(874)[address] [place], [place] 5627402-22-2023 08:18-0500 SaO2% (BldA) [Mass fraction]96 %MD Viktor Bradford Work Phone: 1(450)99[address]02-22-2023 08:18-0500 Systolic blood fnqmpwyb316 mm[Hg]MD Viktor Bradford Work Phone: 1(481)[address] [place], [place] 5627402-20-2023 21:50-0500 Body jngyko890.64 cmMD Viktor Bradford Work Phone: 1(657)27153 [address]02-20-2023 21:50-0500 Body oefuvv401.75 kgMD Viktor Bradford Work Phone: 1(078)[address]02-14-2023 09:27-0500 Body eoyxzxcdgwo56.1 [degF]MD Viktor Bradford Work Phone: 1(584)81353 [address]02-14-2023 09:27-0500 Respiratory rate16 /minMD Viktor Bradford Work Phone: 1(116)260[address]02-14-2023 09:07-0500 Diastolic blood rtoxxelw44 mm[Hg]MD Viktor Bradford Work Phone: 1(515)550-[address] [place], [place] 5655002-14-2023 09:07-0500 Heart rate83 /minMD Viktor Bradford Work Phone: 1(393)[address] [place], [place] 5627402-14-2023 09:07-0500 Systolic blood qnvmekte763 mm[Hg]MD Viktor Bradford Work Phone: 1(798)[address] [place], [place] 5627402-14-2023 09:05-0500 Body zexsmy433.64 cmMD Viktor Bradford Work Phone: 1(326)[address] [place], [place] 5627402-14-2023 09:05-0500 Body lnjeoy812.21 kgMD Viktor Bradford Work Phone: 1(637)[address] [place], [place] 5627402-11-2023 12:30-0500 Diastolic blood jubavsxg60 mm[Hg]MD Viktor Bradford Work Phone: 1(745)[address] [place], [place] 5627402-11-2023 12:30-0500 Heart rate68 /minMD Viktor Bradford Work Phone: 1(642)[address] [place], [place] 5627402-11-2023 12:30-0500 Systolic blood qezgjrfx560 mm[Hg]MD Viktor Bradford Work Phone: 1(880)[address] [place], [place] 5627402-11-2023 12:15-0500 Respiratory rate18 /minMD Viktor Bradford Work Phone: 1(355)[address] [place], [place] 5627402-11-2023 10:30-0500 Body blwutdxukba63.2 [degF]MD Viktor Bradford Work Phone: 1(740)[address] [place], [place] 5627402-11-2023 08:36-0500 SaO2% (BldA) [Mass fraction]94 %MD Viktor Bradford Work Phone: 1(057)[address] [place], [place] 5627402-10-2023 22:01-0500 Body oqabtj497.64 cmMD Viktor Bradford Work Phone: 1(597)[address] [place], [place] 5627402-10-2023 22:01-0500 Body tbkiqj309.21 kgMD Viktor Bradford Work Phone: 1(971)[address] [place], [place] 5627401-31-2023 10:12-0500 Body sgxesm138.64 cmViktor Bradford Work Phone: mp031-4198UM-Uzacr [facility] [address] DO Work Phone: 1(211)711-12833-388061-69688193-42-6981 10:12-0500Body mass index (BMI) [Ratio]41.8 kg/s6AvgklrViktor Bradford Work Phone: mp461-6513EJ-Htrnh [facility] [address] DO Work Phone: 1(491)613-24505-225134-74714553-08-7121 10:12-0500Body surface area Derived from formula2.23 s1OhnyphViktor Bradford Work Phone: mp652-3976RQ-Pdonq [facility] [address] DO Work Phone: 1(730)671-96079-087776-82476154-24-8768 10:12-0500Body .48 kgViktor Bradford Work Phone: 1(297) 426-7894241-9086NM-Hoxls [facility] 320 DO Work Phone: 1(838)907-82933-051676-94391950-64-2727 10:12-0500Diastolic blood bkaefotm27 mm[Hg] Viktor Bradford Work Phone: 1(776) 317-2986540-5840WK-Labbh [facility] [address] DO Work Phone: 1(416)512-60654-266281-93255597-95-2452 10:12-0500Heart rate73 /minViktor Bradford Work Phone: mp488-5409UY-Dlwch [facility] [address] DO Work Phone: 1(166)817-20029-862732-20984714-00-0809 10:12-0500Systolic blood oaslkhql351 mm[Hg] Viktor Bradford Work Phone: mp669-3636YQ-Aaupe [facility] 320 DO Work Phone: 1(975) 624-867501-26-2023 15:30-0500Body snprwmebuma43.9 [degF]MD Viktor Bradford Work Phone: [facility]01-26-2023 15:30-0500 Diastolic blood pdskxunw45 mm[Hg]MD Viktor Bradford Work Phone: [facility]01-26-2023 15:30-0500 Heart rate78 /minMD Viktor Bradford Work Phone: 1(639)094-91[facility]01-26-2023 15:30-0500 Respiratory rate18 /minMD Viktor Bradford Work Phone: 1(737)46[address]01-26-2023 15:30-0500 SaO2% (BldA) [Mass fraction]100 %MD Viktor Bradford Work Phone: 1(588)88[address]01-26-2023 15:30-0500 Systolic blood bjxmrufu195 mm[Hg]MD Viktor Bradford Work Phone: 1(676)69[address]01-25-2023 16:29-0500 Body vsqtsu092.64 cmMD Viktor Bradford Work Phone: 1(548)[address] [place], [place] 5627401-24-2023 13:12-0500 Body zaaori412.66 kgMD Viktor Bradford Work Phone: 1(623)[address] [place], [place] 5627401-24-2023 10:53-0500 Body .64 cmMD Viktor Bradford Work Phone: 1(329)701[address]01-24-2023 10:53-0500 Body rgyiwwdhkzu80.7 [degF]MD Viktor Bradford Work Phone: 1(465)[address]01-24-2023 10:53-0500 Body nvimla472.85 kgMD Viktor Bradford Work Phone: 1(055)56[address]01-24-2023 10:53-0500 Diastolic blood yzmjhrmk70 mm[Hg]MD Viktor Bradford Work Phone: 1(321)03453 [address]01-24-2023 10:53-0500 Heart rate72 /minMD Viktor Bradford Work Phone: 1(060)42153 [address]01-24-2023 10:53-0500 Respiratory rate20 /minMD Viktor Bradford Work Phone: 1(790)946-[address] [place], [place] 5655001-24-2023 10:53-0500 SaO2% (BldA) [Mass fraction]98 %MD Viktor Bradford Work Phone: 1(419)483-[address] [place], [place] 5655001-24-2023 10:53-0500 Systolic blood ylygarqt127 mm[Hg]MD Viktor Bradford Work Phone: 1(635)03853 [address]01-18-2023 13:38-0500 Diastolic blood mdqohpkq28 mm[Hg]MD Viktor Bradford Work Phone: 1(356)[address] [place], [place] 5627401-18-2023 13:38-0500 Heart rate85 /minMD Viktor Bradford Work Phone: 1(946)[address] [place], [place] 5627401-18-2023 13:38-0500 Systolic blood rbavjgmm589 mm[Hg]MD Viktor Bradford Work Phone: 1(735)[address] [place], [place] 5627401-18-2023 11:35-0500 Body ycrhufbucpp24.1 [degF]MD Viktor Bradford Work Phone: 1(693)[address] [place], [place] 5627401-18-2023 11:35-0500 Respiratory rate18 /minMD Viktor Bradford Work Phone: 1(325)[address] [place], [place] 5627401-18-2023 11:35-0500 SaO2% (BldA) [Mass fraction]97 %MD Viktor Bradford Work Phone: 1(331)[address] [place], [place] 5627401-05-2023 22:17-0500 Respiratory rate16 /minMD Viktor Bradford Work Phone: 1(548)[address] [place], [place] 5627401-05-2023 21:54-0500 Body imztrgmpkve18.3 [degF]MD Viktor Bradford Work Phone: 1(785)[address] [place], [place] 5627401-05-2023 21:53-0500 Diastolic blood anfwvsba85 mm[Hg]MD Viktor Bradford Work Phone: 1(380)91153 [address]01-05-2023 21:53-0500 Heart rate83 /minMD Viktor Bradford Work Phone: [phone] [place], [place] 5627401-05-2023 21:53-0500 Systolic blood oxxtiaio533 mm[Hg]MD Viktor Bradford Work Phone: 1(733)[address]01-05-2023 21:37-0500 Body mifrpn082.64 cmMD Viktor Bradford Work Phone: [phone])[address]01-05-2023 21:37-0500 Body fxlzgu033.93 kgMD Viktor Bradford Work Phone: 1(770)[address]01-04-2023 22:03-0500 Diastolic blood mrjymizh22 mm[Hg]MD Viktor Bradford Work Phone: 1(589)[address]01-04-2023 22:03-0500 Heart rate90 /minMD Viktor Bradford Work Phone: 1(130)[address]01-04-2023 22:03-0500 Respiratory rate18 /minMD Viktor Bradford Work Phone: 1(137)[address] [place], [place] 5627401-04-2023 22:03-0500 SaO2% (BldA) [Mass fraction]97 %MD Viktor Bradford Work Phone: [phone])[address]01-04-2023 22:03-0500 Systolic blood gzacxfdh689 mm[Hg]MD Viktor Bradford Work Phone: 1(121)[address]01-04-2023 17:29-0500 Body kebsbg049.64 cmMD Viktor Bradford Work Phone: 1(083)[address]01-04-2023 17:29-0500 Body yhgcrcfifaf07.3 [degF]MD Viktor Bradford Work Phone: 1(267)[address]01-04-2023 17:29-0500 Body djayqc860 kgMD Viktor Bradford Work Phone: 1(707)[address]01-04-2023 12:40-0500 Body qmqmcdzfjok29.9 [degF]MD Viktor Bradford Work Phone: 1(353)[address]01-04-2023 12:40-0500 Diastolic blood yxryxbsv20 mm[Hg]MD Viktor Bradford Work Phone: 1(555)[address]01-04-2023 12:40-0500 Heart rate66 /minMD Viktor Bradford Work Phone: [facility]01-04-2023 12:40-0500 Respiratory rate18 /minMD Viktor Bradford Work Phone: [facility]01-04-2023 12:40-0500 SaO2% (BldA) [Mass fraction]98 %MD Viktor Bradford Work Phone: [facility]01-04-2023 12:40-0500 Systolic blood ttpjalsk542 mm[Hg]MD Viktor Bradford Work Phone: [facility]08-25-2022 07:45-0400 60 1Marcqing Bradford Work Phone: [phone]-Zrhkn [facility] [address] [place] Work Phone: Comment on above:[id number] 19:14-0400 Diastolic blood aucllgoa43 mm[Hg]MD Viktor Bradford Work Phone: [facility]08-01-2022 19:14-0400 Heart rate64 /Twila Bradford Work Phone: [facility]08-01-2022 19:14-0400 Respiratory rate18 /minMD Viktor Bradford Work Phone: [facility]08-01-2022 19:14-0400 SaO2% (BldA) [Mass fraction]100 %MD Viktor Bradford Work Phone: [phone]08-01-2022 19:14-0400 Systolic blood okclwnxa783 mm[Hg]MD Viktor Bradford Work Phone: [phone]08-01-2022 14:29-0400 Body tsigcufacyi69.4 [degF]MD Viktor Bradford Work Phone: [phone]08-01-2022 13:07-0400 Body ogngmr345.64 cmMD Viktor Bradford Work Phone: 1([phone]08-01-2022 13:07-0400 Body .4 kgMD Viktor Bradford Work Phone: [facility]07-26-2022 10:20-0400 Diastolic blood pyzpacqx32 mm[Hg]Viktor Bradford Work Phone: mp682-4714IB-[facility]ySt[facility] DO Work Phone: 1([phone] 10:20-0400Heart rate65 /minViktor Bradford Work Phone: mp718-8574ZB-DibkrSt. [facility] DO Work Phone: 1([phone] 10:20-0400Systolic blood cpixvecr822 mm[Hg] Viktor Bradford Work Phone: mp667-6123IQ-AlgwjCuyuna Regional Medical Centeria [facility] DO Work Phone: 1(289)[phone]-8367 10:19-0400Body bsdywr457.64 cmViktor Bradford Work Phone: 1(401) [phone]-AycxfAbbott Northwestern Hospitalia [facility] DO Work Phone: 1(371)[phone] 10:19-0400Body mass index (BMI) [Ratio] 36.68 kg/t4QsucixViktor Bradford Work Phone: mp972-1071NA-DikieCuyuna Regional Medical Centeria [facility] DO Work Phone: 1([phone] 10:19-0400Body surface area Derived from formula2.11 h3JovilxViktor Bradford Work Phone: mp209-4772VC-UrvggCuyuna Regional Medical Centeria [facility] DO Work Phone: 1([phone])[phone]-2864 10:19-0400Body gifvzw295.08 kgViktor Bradford Work Phone: mp269-9052RN-TemcnCuyuna Regional Medical Centeria [facility] DO Work Phone: 1(838)[phone]-6021 07:30-0400Body fjrmplqyswj69.4 [degF]MD Viktor Bradford Work Phone: [facility]06-22-2022 07:30-0400 Diastolic blood jffuprxw97 mm[Hg]MD Viktor Bradford Work Phone: [facility]06-22-2022 07:30-0400 Heart rate86 /minMD Viktor Bradford Work Phone: [phone]06-22-2022 07:30-0400 Respiratory rate16 /minMD Viktor Bradford Work Phone: 1(802)606-[address] [place], [place] 5655006-22-2022 07:30-0400 SaO2% (BldA) [Mass fraction]95 %MD Viktor Bradford Work Phone: [phone]06-22-2022 07:30-0400 Systolic blood szxitevd554 mm[Hg]MD Viktor Bradford Work Phone: [phone]75[facility]06-21-2022 15:45-0400 Body tsopta891.64 cmMD Viktor Bradford Work Phone: [phone])[address]06-20-2022 14:00-0400 Body mass index (BMI) [Ratio]35.4 kg/m2MD Viktor Bradford Work Phone: [phone]29[facility]06-20-2022 09:00-0400 Body .75 kgMD Viktor Bradford Work Phone: 1(983)342[facility]36[facility]11-09-2021 13:15-0500 Body .64 cmViktor Bradford Work Phone: 1([phone]-Zrgvqveyyonf-[facility] Work Phone: 1(695) 337-261011-09-2021 13:15-0500Body mass index (BMI) [Ratio] 31.47 kg/g5DgihcvViktor Bradford Work Phone: [phone]-Vthvhabiegar-[facility] Work Phone: 1(279) 989-855111-09-2021 13:15-0500Body surface area Derived from formula1.98 n8LsghwhViktor Bradford Work Phone: 1([phone]-Tabyuashtnwc-[facility] Work Phone: 1(976) 217-912211-09-2021 13:15-0500Body iluwpx52.45 kgViktor Bradford Work Phone: mg484-9823HD-Pbfnsxisfncj-[facility] Work Phone: 1(187) 403-268611-09-2021 13:15-0500Diastolic blood jcfxeqji10 mm[Hg] Viktor Bradford Work Phone: mg270-7299AG-Txobbxzrgxhm-[facility] Work Phone: 1(960) 867-179411-09-2021 13:15-0500Heart rate70 /minViktor Bradford Work Phone: mg002-9368AX-Dcoefaxjdihn-[facility] Work Phone: 1(686) 512-223211-09-2021 13:15-0500Respiratory rate18 /minViktor Bradford Work Phone: mg776-3053YT-Xunoibdleoex-[facility] Work Phone: 1(705) 138-868311-09-2021 13:15-0500Systolic blood orwdbjan464 mm[Hg] Viktor Bradford Work Phone: [phone]-Afthbidnqify-[facility] Work Phone: 1(152) 977-772912-04-2020 17:24-3791RvN1% (BldA) [Mass fraction]64 % [facility] Hospital Encounters Encounter DateEncounter TypeCare ProviderFacilityStart: 04-10-2025 End: 20-41-4915jkhcboszqlNhxoawq Vytautas Giedraitis MDFacility:[facility] [place] Start: 30-84-6877tzsqdewcpxRzeezc E BraunFacility:[facility] Centertart: 03-15-2025 End: 75-43-1002ywroicafwpRJLE J [facility] Start: 03-15-2025 End: 46-86-8446Npopnurjfc hospital visit by physicianEly [facility] HospitalComment on above:Pacemaker; Sick sinus syndrome (Multi)Start: 01-02-2025 End: 10-20-9667smhjavlnhwZwnfcpm R WATERSFacility:EU BellevueStart: 01-02-2025 End: 89-47-0508Xiwrxse encounter procedureJEYEIMI CHUNG [facility] [place] start: 12-07-2024 End: 59-44-0203vazgndzvteDLGO J [facility] Start: 12-07-2024 End: 05-39-6940Geqxswcuvi hospital visit by physicianEly Device RemoteSt. [facility] ([place])Comment on above:Pacemaker; Sick sinus syndrome (Multi)Start: 37-65-7568Gnp-patient / Non-visitViktor Bradford MD Work Phone: [facility] Work Phone: Start: 11-17-2024 End: 36-77-1199Phnptssuq to same day surgery centerViktor Bradford MD Work Phone: [facility] CenterStart: 11-17-2024 End: 09-46-9921gejnlcxkrgSjramz E Braun MD Work Phone: [facility] Work Phone: Start: 69-37-1351Zibzkwjaqt RecurringViktor Bradford MD Work Phone: [facility]- CredibleStart: 11-07-2024 End: 57-23-1437Fckqvfl encounter procedureViktor Bradford MD Work Phone: [facility] Vascular Surgery [place] Work Phone: Start: 69-87-8210Ylz-patient / Non-visitViktor Bradford MD Work Phone: [facility] GroupPeacehealth Professional [facility] Work Phone: Start: 66-91-5484Tok-patient / Non-visitViktor Bradford MD Work Phone: firhendersons Physician GroupPeacehealth Professional [facility] Work Phone: Start: 09-26-2024 End: 04-92-2895xisusqxcsmBpubzqlYuval Snell MDFacility:[facility] [place] Start: 08-31-2024 End: 96-13-6195Prdvjcjfan hospital visit by physicianEly Device [facility] HospitalComment on above:Pacemaker; Sick sinus syndrome (Multi)Start: 08-31-2024 End: 18-27-7126Varlwkx encounter procedureViktor Bradford MD Work Phone: [facility] [place] Work Phone: Start: 08-31-2024 End: 24-24-4195enmfjkhxetRvspjb E Braun MD Work Phone: [facility] Work Phone: Start: 08-24-2024 End: 30-75-3425ptaajunkryRyugwk E BraunFacility:[facility] Centertart: 16-11-4105Yzz-patient / Non-visitViktor Bradford MD Work Phone: [facility]-Heart Rhythm ClinicStart: 49-59-8520Kmciyjvsha RecurringViktor Bradford MD Work Phone: [facility]- CredibleStart: 07-25-2024 End: 43-34-8331qgvsnqwfztSjebglgYuval Snell MDFacility:[facility] [place] Start: 57-65-0826Tup-patient / Non-visitViktor Bradford MD Work Phone: [facility] Work Phone: Start: 07-11-2024 End: 55-08-4796fdzyleeuxhWhbphahYuval Snell MDFacility:[facility] [place] Start: 07-05-2024 End: 90-53-0808nqklatqfjpGcoaqbp R WATERSFacility:FTMCStart: 07-05-2024 End: 32-15-8182Tbcsrrc encounter Anna HAN [facility] Start: 67-80-9890Yin-patient / Non-visitMarcia Bradford MD Work Phone: [facility] GroupPe[facility] Work Phone: Start: 07-04-2024 End: 69-02-6542Rjyrpkt encounter procedureViktor Bradford MD Work Phone: [facility]-CT Scan [place] Work Phone: Start: 07-04-2024 End: 63-67-6609itxvicrmbvHawegx E Braun MD Work Phone: [facility] Work Phone: Start: 06-27-2024 End: 96-28-1097jnynxlmosjXqnbjcv Vytautas Giedraitis MDFacility:[facility] [place] Start: 61-60-0857Lgctkzpwrf RecurringViktor Bradford MD Work Phone: [facility]- CredibleStart: 06-10-2024 End: 59-71-2836Fabgwbk encounter procedureViktor Bradford MD Work Phone: [facility] Work Phone: Start: 06-02-2024 End: 97-91-7668jeyovvlusoNMKWOCRB E PERRYFacility:EU [place]vueStart: 06-02-2024 End: 06-16-7578Dlyxdtq encounter procedureJENNIFER E JATIN [facility] [place] start: 83-46-8062Hij-patient / Non-visitViktor Bradford MD Work Phone: [facility] GroupPe[facility] Work Phone: Start: 05-30-2024 End: 42-59-8177Xvhkhtk encounter procedureViktor Bradford MD Work Phone: [facility]-Ultrasound [place] Work Phone: Start: 05-30-2024 End: 48-49-0935rqqnzjayfoMucxna Sulema BraunFacility:[facility] Centertart: 05-30-2024 End: 14-47-1246vygyqtchldAXKDZZJX E PERRYFacility:EU SusanuskyStart: 05-30-2024 End: 76-20-6831Rtdccmx encounter procedureJENNIFER E JATIN [facility] [place] Start: 05-25-2024 End: 92-21-1458drfhwwgvlnFXJE J [facility] Start: 05-25-2024 End: 85-19-5092Tqvcbvdiez hospital visit by physicianEly Device [facility] HospitalComment on above:Pacemaker; Sick sinus syndrome (Multi)Start: 05-03-2024 End: 29-61-7573skmmbdvcenXODXCMTT E PERRYFacility:EU Colleentart: 05-03-2024 End: 21-57-3874Skndmrk encounter procedureJENNIFER E JATIN [facility] start: 02-10-2024 End: 02-60-4782Pfjzafvznq hospital visit by physicianEly Device [facility] HospitalComment on above:Pacemaker; Sick sinus syndrome (Multi)Start: 11-12-2023 End: 92-34-3774jsgaauqdelWY Marcia E Braun Work Phone: [facility] Work Phone: Start: 11-12-2023 End: 32-90-4458Qobnvea encounter procedureMD Viktor Bradford Work Phone: [facility] GroupSelect Medical [facility] Work Phone: Start: 86-58-1213Zfsjhjltac RecurringMD Viktor Bradford Work Phone: [facility] ColumbusStart: 11-04-2023 End: 52-74-0227Gfhqcnyoil hospital visit by physicianEly Device [facility] HospitalComment on above:Pacemaker; Sick sinus syndrome (Multi)Start: 10-29-2023 End: 94-59-2799Chqnyruifi and management of inpatientNORTHERN COCHISE COMMUNITY HOSPITALCIA [facility] Hospitaltart: 54-65-3684Dti-patient / Non-visitMD Viktor Bradford Work Phone: [facility] GroupPe[facility] Work Phone: Start: 02-20-1604Lcf-patient / Non-visitMD Viktor Bradford Work Phone: [facility] GroupSelect [facility] Work Phone: Start: 78-79-4887Mns-patient / Non-visitMD Viktor Bradford Work Phone: [facility] Work Phone: Start: 91-85-3677Tzi-patient / Non-visitMD Viktor Bradford Work Phone: [facility] Work Phone: Start: 07-29-2023 End: 72-12-5698Zwtwcghfbo hospital visit by physicianEly Device [facility] HospitalComment on above:Pacemaker; Sick sinus syndrome (CMS/HCC)Start: 04-28-2023 End: 84-27-5251Domrqpb encounter procedureESTELA CHUNG [facility] start: 04-24-2023 End: 77-00-7109Skcaevicqx hospital visit by physicianEly Device [facility] HospitalComment on above:Pacemaker; Sick sinus syndrome (CMS/HCC)Start: 16-15-4153dayqnlrnddLpDr. Viktor BradfordFacility:9090Start: 01-21-2023 End: 00-02-7005blycggmkdbFO Marcia E Braun Work Phone: [facility] Work Phone: Start: 01-21-2023 End: 52-01-5722Tdgukmw encounter procedureMD Viktor Bradford Work Phone: [facility]-MRI [place] Work Phone: Start: 56-88-0641Yuuhsdu tobacco non-user cad cap copd pv dmMarcia Sulema Bradford Work Phone: [phone]-Jkxrn [facility] 320 DO Work Phone: Start: 84-02-4402gbdladxflpOk. Viktor Bradford Facility:[id number]: 03-98-1659ngbzbwolvgXc. Viktor BradfordFacility:9090 Start: 12-19-2022 End: 18-37-5079loghwhfbriXN Viktor Leone Sanchez Work Phone: [facility] Work Phone: Start: 12-19-2022 End: 23-06-9376Kurtivb encounter procedureMD Viktor Bradford Work Phone: [facility]-Pacemaker CheckStart: 12-11-2022 End: 83-59-7534Scxbdzmjwk and management of inpatientMD Viktor Bradford Work Phone: [facility]-1 [facility] Work Phone: Start: 12-09-2022 End: 37-63-6485Aedjyrp encounter procedurePayoung HAN [facility] Start: 87-05-2807Esqmwaagiv RecurringMD Viktor Bradford Work Phone: [facility]-BH CredibleStart: 10-28-2022 End: 04-29-6444Unisacogwy and management of inpatientMD Viktor Bradford Work Phone: [facility]-1 [facility] Work Phone: Start: 45-46-3922Fhdwjzimwf RecurringMD Viktor Bradford Work Phone: [facility]- CredibleStart: 30-36-7893psyqjoahioIdBeatris Viktor Pack SanchezFacility:9507Start: 10-18-2022 End: 92-07-2577Mhuisqyzr department patient visitMD Viktor Bradford Work Phone: [facility]-Emergency Room Work Phone: Start: 10-16-2022 End: 61-12-3915xtdrfjadtrBQWPBG RODRIGUEZ .Facility:E7Oppwv: 09-28-2022 End: 79-63-1505Vbhqpwyam department patient visitMD iVktor Bradford Work Phone: [facility]-Emergency Room Work Phone: Start: 09-03-2022 End: 13-77-8699Indbtcbnvv and management of inpatientMD Viktor Bradford Work Phone: [facility]-[address] [place] [address] Work Phone: Start: 09-03-2022 End: 34-06-7788Yqifadu encounter procedureJEYEIMI CHUNG [facility] start: 08-11-2022 End: 82-77-4292Gagnvftama and management of inpatientMD Viktor Bradford Work Phone: [facility]-3 [facility] Post Work Phone: Start: 08-05-2022 End: 51-81-5974qiubtztuygNP Viktor Bradford Work Phone: [facility] Work Phone: Start: 08-05-2022 End: 99-75-7780Bxgaktu encounter procedureMD Viktor Bradford Work Phone: [facility]-3 East Labor - O/P Start: 08-01-2022 End: 49-97-4929Aanxyzpigp and management of inpatientMD Viktor Bradford Work Phone: [facility]-3 East Labor and Delivery Work Phone: Start: 07-25-2022 End: 90-54-9593qbicbiqjnsPY Viktor Leone Sanchez Work Phone: [facility] Work Phone: Start: 07-25-2022 End: 22-23-6358Dipfahgp ReferredMD Viktor Bradford Work Phone: [facility]-Lab [place] Work Phone: Start: 94-48-0597Nzkflqg tobacco non-user cad cap copd pv dmMarmarielenaharpreet Leone Sanchez Work Phone: [phone]-Ytjou [facility] 320 DO Work Phone: Start: 44-43-7754mkdiilwkbqLwBeatris Bradford Facility:9507Start: 07-15-2022 End: 61-66-7385Otfknzgtdj and management of inpatientMD Viktor Bradford Work Phone: [facility]-1 [facility] Work Phone: Start: 07-09-2022 End: 54-68-1538lzxunzixhaDZ Viktor Leone Sanchez Work Phone: [facility] Work Phone: Start: 07-09-2022 End: 79-26-1858Zhjycbohis RecurringMD Viktor Bradford Work Phone: [facility]-Infusion Therapy - O/P Work Phone: Start: 06-30-2022 End: 10-04-7130mguhkdmorsIR Viktor Leone Sanchez Work Phone: [facility] Work Phone: Start: 06-30-2022 End: 50-01-4472Zivgoty encounter procedureMD Viktor Sanchez Work Phone: [facility]-Lab [place] Work Phone: Start: 06-26-2022 End: 63-68-0938epyxgnfebtJD Marcia E Braun Work Phone: [facility] Work Phone: Start: 06-26-2022 End: 78-07-1974Mkiaezw encounter procedureMD Viktor Bradford Work Phone: [facility]-3 East Labor - O/P Start: 06-25-2022 End: 70-78-3563Vkqnsatfo department patient visitMD Viktor Bradford Work Phone: [facility]-Emergency Room Work Phone: Start: 34-76-2391Dcgjpwnndc RecurringMD Viktor Bradford Work Phone: [facility]-Infusion Therapy - O/P Work Phone: Start: 04-28-2022 End: 30-68-1654lbiaoblprxFK MARCIA E BRAUNFacility:E6Jokbg: 76-64-4013crvzstpnah Dr. Viktor BradfordFacility:9507Start: 69-07-7287Rfukz Baylee Bradford Work Phone: [phone]-Nvlgb [facility] 320 DO Work Phone: Start: 56-70-7130Sboopym encounter procedureViktor Bradford Work Phone: [phone]-Rfvmi [facility] [address] [place] Work Phone: Start: 01-59-2766oztwfnqzkaVcBeatris Bond Ne Facility:9844Start: 01-20-2022 End: 87-98-4163Hqojyebho department patient visitMD Viktor Bradford Work Phone: [facility]-Emergency RoomStart: 65-04-8316Jfsnigs tobacco non-user cad cap copd pv dmViktor Bradford Work Phone: [phone]-Bhbzf [facility] 320 DO Work Phone: Start: 06-67-2373wyxnugfgnkBhbhgjb Allemang MD Work Phone: General SurgeryComment on above:PortStart: 12-16-2021 End: 53-62-1773Ozdajey encounter procedureMD Viktor Sanchez Work Phone: [facility]-Lab Main CampusStart: 12-08-2021 End: 58-22-0719Uystairgpe and management of inpatientMD Viktor Sanchez Work Phone: [facility]-1 SouthStart: 07-85-7306Wcrejdsmx encounterMamay Johnson MD Work Phone: GastroenterologyComment on above:Patient UpdateStart: 57-19-4142Hsqkww ReviewViktor Bradford Work Phone: [phone]-Xhsqfosmkyeh-[facility] Work Phone: start: 96-81-7154Csglrge tobacco non-user cad cap copd pv dmMarabdulkadir Bradford Work Phone: [phone]-Iuttsuqbhfrf-[facility] Work Phone: start: 64-92-5563Zotyfdp encounter procedureViktor Bradford Work Phone: [phone]-Oniylrzfunpib-[facility] 3200 Work Phone: Start: 01-24-2020 End: 33-33-5291Ybcnzzu encounter procedureNICEDWARD Helms [facility] Start: 01-24-2020 End: 87-18-9201Fzrxrxrtej hospital visit by physicianMedisys Health Networkz [facility] Schedule [facility] SLEEP LABComment on above:Arrived Procedures DateProcedureProcedure DetailPerforming ClinicianStart: 70-14-0821Vjcdkxk venous cannula insertionViktor Bradford MD Work Phone: Start: 54-83-9679Paphj chest X-rayViktor Bradford MD Work Phone: Start: 14-06-9349JMO of cervical spine without contrastViktor Bradford MD Work Phone: Start: 52-69-4377Drstaydk tomography of abdomen and pelvis with contrastViktor Bradford MD Work Phone: Start: 41-21-7386Xqtkdoakstwgshn of bilateral kidneys Viktor Bradford MD Work Phone: Start: 31-19-8256Wnm interrog pm/ldls pm/ids <90 d tech reviewRita Olivia MD Work Phone: Start: 66-12-6321WWH of abdomen with contrastMD Viktor Bradford Work Phone: Start: 86-92-6237Sehnb chest X-rayMD Viktor Bradford Work Phone: Start: 31-54-2887Fjneg cultureMD Viktor Bradford Work Phone: Start: 58-53-6416Qycojxjnaqcxqvwxw with dilation of urethral strictureJENNIFER JATIN Start: 09-56-2543Cycqd cultureMD Viktor Bradford Work Phone: Start: 68-87-3657TN of abdomen and pelvis without contrastMD Viktor Bradford Work Phone: Start: 43-47-1116Szaya cultureMD Viktor Bradford Work Phone: Start: 16-00-5962KZ angiography of thoraxMD Viktor Bradford Work Phone: Start: 63-47-6673Tufbt chest X-rayMD Viktor Brdaford Work Phone: Start: 15-26-2822HUEX-CoV-2, Influenza & RSV (PCR)MD Viktor Bradford Work Phone: Start: 59-71-6685Bzlyf cultureMD Viktor Bradford Work Phone: Start: 58-09-7862Jizpp cultureMD Viktor Bradford Work Phone: Start: 32-77-2665Aeeal cultureMD Viktor Bradford Work Phone: start: 59-36-7959Drtrf cultureMD Viktor Bradford Work Phone: Start: 36-84-6272Llafkxlwrpdac agalactiae cultureMD Viktor Bradford Work Phone: Start: 25-54-3660Amfbn cultureMD Viktor Bradford Work Phone: Start: 39-78-6712Awztc cultureMD Viktor Bradford Work Phone: Start: 88-27-4382Sfdql cultureMD Viktor Bradford Work Phone: Start: 29-53-7613DvahcsilipsyiqvgEkkari E Braun Work Phone: Start: 30-67-1070Enssnipkxnhmrzbzi with dilation of urethral strictureESTELA CHUNG Start: 30-37-6502Xqofh std airflow hrt rate&o2 sat effort unattNICOLE DANNERStart: 99-05-8412Wlotc depression screening assessment Clemente Johnson MD Work [...] Work Phone: Plan of Treatment DateCare ActivityDetailAuthorStart: 6831Xeehdg Vaccines (1 of 2)Zoster Vaccines (1 of 2)[facility]: 83-77-2557RXZSQ-19 Vaccine ( season)COVID-19 Vaccine ( season)[facility]: 72-75-3196Vwdrgfhvy vaccinationUnChildren's Hospital of ColumbusStringling: 04-67-2911JjtlzdfceAshtabula County Medical Centertart: 11-17-2024 [facility] Centertart: 52-26-9235ZQJJX-19 Vaccine ( season)COVID-19 Vaccine ( season)[facility] Start: 91-68-7581Bwznuqbut vaccinationUnLakeHealth TriPoint Medical Center: 77-68-2130XOX, Provider: Rita Olivia, Status: Pen, Time: 8:40 AMFUV, Provider: Rita Olivia, Status: Pen, Time: 8:40 AM-[facility] 320 DO Work Phone: Start: 07-07-2023 End: 69-75-4179Yuryysf encounter huspaddhp28/16/2024 8:40 AM EST Office Visit [facility] [address] [facility] [address] [place] [address] Rita Olivia MD [address] [facility] Medical Office Bldg, [place] [address] [place], [place] [id number] [facility]: 94-28-5752TYOCF-19 Vaccine ( season)COVID-19 Vaccine ( season)[facility]: 93-12-0181Concfctxt vaccination Influenza Vaccine (#1)[facility]: 72-17-4245MGM, Provider: Rita Olivia, Status: Pen, Time: 8:40 AMFUV, Provider: Ne,Rita, Status: Pen, Time: 8:40 [facility] DO Work Phone: Start: 40-76-5701Kqpbnne encounter procedure GERTRUDE, Provider: [facility],CHRISSIE, Status: Pen, Time: 8:00 [facility]st[facility] DO Work Phone: Start: 92-46-2877NjfmrpygvTrihealth Good Samaritan Hospital Start: 89-00-6221Ehuudlsq to Social ServicesTrihealth Good Samaritan Hospital Start: 62-13-7249Nmkhlmwj admissionAshtabula County Medical Centertart: 28-42-7794Xlzinplc identified in Urine by CultureUrine CultureAshtabula County Medical Centertart: 57-03-4717IiarftcwpAshtabula County Medical Centertart: 71-22-9267Nxysafhlnyfxkm of prophylactic treatmentAshtabula County Medical Centertart: 34-19-3772Avyzvsfqh for malignant neoplasm of breastMaogram [facility]Start: 72-34-1303Prylbhkk to clinical farm product purchaser [facility]: 91-82-2129Tqvmljzr to E Commerce Specialist [facility]: 18-02-6157Ubhefvof admissionAshtabula County Medical Centertart: 00-22-7868Goewgkjj identified in Urine by Culture [facility]: 26-61-2196LD angiography of thoraxCT angio chest PE protocolAshtabula County Medical Centertart: 94-47-9522MQ ChestAshtabula County Medical Centertart: 90-81-0574Ysnip chest X-rayXR chest 2V*[facility]: 58-50-8888RE Chest 2 ViewsAshtabula County Medical Centertart: 34-43-6782Vcaepdkk identified in Urine by Culture [facility]: 08-22-5869IefxzolazAshtabula County Medical Centertart: 75-35-2801Kwsazoqf admissionAshtabula County Medical Centertart: 71-46-4934OdiaucbumAshtabula County Medical Centertart: 88-70-7180Vkfazena to psychiatristAshtabula County Medical Centertart: 36-13-1750Ridakpkd admission [facility]: 14-29-4282Gpjjllugsu of Products of Conception, Low Forceps, Via Natural or Artificial OpeningExtraction of Products of Conception, Low Forceps, Via Natural or Artificial OpeningAshtabula County Medical Centertart: 36-88-3410ZedpxnlgrAshtabula County Medical Centertart: 11-41-8812ExxykprcdAshtabula County Medical Centertart: 72-44-1275Ymfrwkor to neurologistAshtabula County Medical Centertart: 37-78-0274Adhyaipp admission [facility]ert[facility]: 93-11-5154PfvwvmvbjAshtabula County Medical Centertart: 02-64-2758Ukruhitl admissionAshtabula County Medical Centertart: 30-11-3600Cuwpyqyy identified in Urine by CultureAshtabula County Medical Centertart: 51-42-2024Yawue B Streptococcus CultureGroup B Streptococcus CultureAshtabula County Medical Centertart: 23-38-6762LUM, Provider: Rita Olivia, Status: Pen, Time: 9:40 AMFUV, Provider: Rita Olivia, Status: Pen, Time: 9:40 [facility]MPMult[facility] DO Work Phone: Start: 88-73-7611SbyohgsuvTrihealth Good Samaritan Hospital Start: 85-58-1207Uiwwvbxe identified in Urine by CultureAshtabula County Medical Centertart: 66-04-0536Kwqpmcmh to Social ServicesAshtabula County Medical Centertart: 07-46-0974Wvzzx disorder assessmentAshtabula County Medical Centertart: 31-64-6757Hlmbzvyp admissionAshtabula County Medical Centertart: 89-13-9243OpokmfvkvAshtabula County Medical Centertart: 06-26-2022 Hospital admissionAshtabula County Medical Centertart: 76-98-5538TkoealzxrAshtabula County Medical Centertart: 49-70-9017Kmxrilok identified in Urine by Culture [facility]: 13-82-3334Onrdvyai identified in Urine by CultureAshtabula County Medical Centertart: 88-65-5154Afmvdimtm vaccinationINFLUENZA (#1)[facility]: 96-30-5430AMOR, Provider: ЕКАТЕРИНА HHVI ULTRASOUND 01,[id number], Status: Pen, Time: 7:45 AMECHO, Provider: ЕКАТЕРИНА HHVI ULTRASOUND 01,[id number], Status: Pen, Time: 7:45 AM- [facility] 320 DO Work Phone: Start: 64-37-7392TgvuttrmcSumma Health [facility] Work Phone: Start: 40-12-0019Opkpwjlh to obstetricianSumma Health [facility]tr Work Phone: Start: 32-25-7981Qrbswtlv admissionSumma Health [facility] Campus Ctr Work Phone: Start: 83-79-8297Gdjdvru encounter procedure FUVPACEMKR, Provider: [facility],EMCPACEMKR, Status: Pen, Time: 10:20 YLRA-Mjpciasvwslu-MYLGP Work Phone: start: 94-41-0279Bqrijggw mellitus screeningDiabetes ScreeningGlenbeigh Hospital: 23-07-3472VPCOXSDJ, Provider: Dennis Almendarez, Status: Pen, Time: 9:00 AMEPVNEURO, Provider: Dennis Almendarez, Status: Pen, Time: 9:00 JUWP-Qzqetaeusprwa-Nxkqzax 3200 Work Phone: Start: 30-93-4404Bclvuksdt vaccinationINFLUENZA (#1) [facility] Hospitalt[facility]: 32-75-0130Ycwxs depression screening assessmentDEPRESSION SCREENINGSelect Medical [facility] Rehabilitation Hospitaltart: 78-33-7399Mfngowamm vaccinationFlu vaccine (#1) [facility]: 11-09-0600GDN TESTINGHPV TESTINGUniversity Hospitals Samaritan Medical Center Start: 60-97-2991UMU TESTINGPAP TESTINGSelect Medical [facility] Rehabilitation Hospitaltart: 12-86-9665DGD Vaccines (1 - 3-dose standard series)HPV Vaccines (1 - 3-dose standard series) [facility]: 11-44-1001CQL Vaccines (1 of 1 - Standard series)MMR Vaccines (1 of 1 - Standard series)[facility]: 54-80-4442Kkuuhmdcx vaccinationHighland District Hospital Start: 38-39-3843USmN/Tdap/Td Vaccines (1 - Tdap)DTaP/Tdap/Td Vaccines (1 - Tdap)[facility]: 57-77-5330Tkarynuek for malignant neoplasm of cervixGlenbeigh Hospital: 27-98-6337DWvP/Tdap/Td vaccine (1 - Tdap)DTaP/Tdap/Td vaccine (1 - Tdap)[facility]: 30-17-2001Xfllrtoce A Vaccines (1 of 2 - Risk 2-dose series)Hepatitis A Vaccines (1 of 2 - Risk 2-dose series)[facility]: 2001 Hepatitis B Vaccines (1 of 3 - 19+ 3-dose series)Hepatitis B Vaccines (1 of 3 - 19+ 3-dose series)[facility]: 43-32-0055Gfktk microalbumin profileDTAP,TDAP,TD (1 - Tdap)[facility]: 2000 Diabetes mellitus screeningDiabetes ScreeningHighland District Hospital Start: 94-86-0721QMMLOEQYP C SCREENINGHEPATITIS C SCREENINGUniversity Hospitals Samaritan Medical Center Start: 01-08-7845Hhzbjnngt C screeningHepatitis C ScreeningGlenbeigh Hospital: 83-68-7662TLG SCREENINGHIV SCREENINGSelect Medical [facility] Hospitaltart: 04-30-4038QKS screeningHIV screenPike Community Hospital: 90-91-5976PWGTJ-19 VACCINE (1)COVID-19 VACCINE (1)[facility]: 60-64-0204ABH Vaccines (1 of 1 - Standard series)MMR Vaccines (1 of 1 - Standard series)[facility]: 10-14-5750Mvoiyzths vaccine (1 of 2 - 2-dose childhood series)Varicella vaccine (1 of 2 - 2-dose childhood series)[facility]: 52-85-2104ZFWKV-19 VACCINE (#1)COVID-19 VACCINE (#1) [facility]: 01-00-1319Slisufpir B Vaccines (1 of 3 - 3-dose series) Hepatitis B Vaccines (1 of 3 - 3-dose series)[facility] Start: 76-00-4402COI screeningHIV ScreeningUnChildren's Hospital of [facility] Start: 40-15-1111Irprd panelLipid PanelUnChildren's Hospital of ColumbusStart: 05-11-1983Medicare Annual Wellness VisitMedicare Annual Wellness Visit (AWV) [facility] End: 70-16-1243Srupnyv Device Check - [facility] Work Phone: Comment on above:Once for 1 Occurrences starting 07/29/2023 until 07/29/2023 End: 28-30-6259Wvnzggd Device Check - [facility] Work Phone: Comment on above:Once for 1 Occurrences starting 11/04/2023 until 11/04/2023 End: 59-35-0837Jfptmav Device Check - [facility] Work Phone: Comment on above:Once for 1 Occurrences starting 05/25/2024 until 05/25/2024 End: 90-68-7699Nobewex Device Check - [facility] Work Phone: Comment on above:Once for 1 Occurrences starting 02/10/2024 until 02/10/2024 End: 85-22-9813Icbwoiy Device Check - [facility] Work Phone: Comment on above:Once for 1 Occurrences starting 08/31/2024 until 08/31/2024 End: 62-39-0455Wdlffvx Device Check - [facility] Work Phone: Comment on above:Once for 1 Occurrences starting 12/07/2024 until 12/07/2024 End: 68-76-9331Trvqpjy Device Check - [facility] Work Phone: Comment on above:Once for 1 Occurrences starting 03/15/2025 until 03/15/2025 End: 66-87-9524Cuio Sleep StudyD[facility]e [facility] Routine One Time for 1 Occurrences starting 01/24/2020 until 01/24/2020[facility] [place] Comment on above:One Time for 1 Occurrences starting 01/24/2020 until 01/24/2020 Patient EducationSumma Health [facility]tr Work Phone: Patient referralSumma Health Akron Campus Ctr Work Phone: Reagin Ab [Presence] in Serum by [facility] Hospitaltreptococcus agalactiae [Presence] in Unspecified specimen by Organism specific cultureTrihealth Good Samaritan Hospital Immunizations Immunization DateImmunizationNotesCare IjdquyzoUakovexp66-44-4387rcxznxikg virus vaccine, unspecified formulationJENNIFER JATIN [facility]12-06-2020influenza, injectable, quadrivalent, preservative Joey Johnson MD Work Phone: [facility] Ttcqks45-08-6948qcureudtz virus vaccine, unspecified formulationJENNIFER JATIN [facility]03-09-2020influenza virus vaccine, unspecified formulationMarcia E Bradford Work Phone: [phone]-IsqekRed Wing Hospital And [facility] 320 DO Work Phone: 1(648) [phone]tzfylsa virus vaccine, unspecified formulationJENNIFER JATIN [facility]10-20-2019influenza, injectable, quadrivalent, preservative freeClemente Johnson MD Work Phone: [facility] hospitaland Sqvucl13-93-3944kymke uetqjgsar-B0X0-17, preservative-free, injectableMarcia E Bradford Work Phone: [phone]-BwuohAbbott Northwestern Hospitalia 320 DO Work Phone: Payers DatePayer CategoryPayerPolicy [id number] Health Tmxwqkgtw07-24-1620 [id number]-pgo [id number] 2022Medicare [id number] 2022Medicare (Managed Care)[employer] MEDICARE [employer]URE [id number] Health [id number] 2021Medicaid MEDICAID [facility] MEDICAID [id number] 2020-Present [phone] [address] [place], [place] [id number] 2021MedicareMEDICARE MEDICARE A AND B [id number] 2020-Present [phone] [address] [address] [place] [address] [id number] [id number] 1.2.840.444635.1.13.239.2.7.3.255[id number] 2.840.1.695521.3.579.2.20052-00-5876Pnqoire1668732 2.16840.1.593547.3.579.2.48502-81-1273Fedmtle9108316 2.0.1.751876.3.579.2.86776-23-4732Xpaqdmn89347700 2.840.1.586294.3.579.2.933009-54-0796Jpjoadi32176939 2..1.260846.3.579.2.179446-59-7534Nyyezng00665259 2..1.772381.3.579.2.396338-03-1185Zkdltak37046169 2..1.318630.3.579.2.877455-08-2587Ctrrtde09939140 2..1.107166.3.579.2.359490-02-2820Algkgny778968942 2..1.956574.3.579.2.96050-44-0256Hyjbodz259608426 2..1.072505.3.579.2.50934-98-4355Rzrfjye181202612 2..1.213521.3.579.2.24113-08-3813Dfxrwbk286123636 2..1.329085.3.579.2.42649-40-6700Hohtyfu299993915 2..1.184223.3.579.2.11286-80-0653Ddpqavr95397236 2..1.584417.3.579.2.08523-67-3949Dxyeuhh69173735 2..1.703712.3.579.2.53147-35-9557Pyyekbv71881548 2..1.054981.3.579.2.58485-92-9827Jjratce79118103 2.16.840.1.153029.3.579.2.80709-81-1400Wbkyzox71919812 2.0.1.247497.3.579.2.01371-08-0011Vpejwjb44783609 2.840.1.205455.3.579.2.010910-67-2667Dowqcti39268146 2.0.1.257195.3.579.2.783471-88-8250Ocsufih01953156 2..1.712255.3.579.2.818322-80-4021Igzzizh72206127 2..1.003376.3.579.2.196016-54-1289Blknxfg479054311 2..1.219038.3.579.2.94455-74-0711Dlyrtnd442130437 2..1.106807.3.579.2.47185-72-3180Voxergk577775769 2..1.536805.3.579.2.58154-70-5768Vbzzhsa087530524 2..1.341291.3.579.2.24994-41-7593Nmaxvlm881215183 2..1.850260.3.579.2.196 [id number] [id number] [id number] 2.840.1.877429.3.579.2.676Mxxxefx25831126 2..1.424169.3.579.2.531 Gmuhhoz26210639 2..840.1.112879.3.579.2.903Gmzeclm73604294 2..840.1.653301.3.579.2.259Frveklh27705284 2..840.1.927947.3.579.2.531 Gheraek56901281 2.0.1.780023.3.579.2.531 Social History DateTypeDetailFacilityTobacco smoking status NHISUnknown if ever smokedPike Community Hospital: 06-76-0068Khp Assigned At BirthNot on [facility]: 31-00-8794Fhk-inzcpnHwk-gmdeoxOB-Lvjcabvelescg-[place] [address] Work Phone: Start: 10-21-2013 End: 81-05-7341Xkuskjb smoking status NHISNever smoked tobaccoUniversity Hospitals Samaritan Medical Center Work Phone: Start: 10-21-2013 End: 60-66-5781Dhmllvh use and exposureSmokeless tobacco non-userUniversity Hospitals Samaritan Medical Center Work Phone: Start: 64-57-2876Xfyskpa intakeCurrent non-drinker of alcohol (finding)[facility]: 19-15-9433Ootdzvm SDOH Financial5 [facility] ClinicStart: 51-31-4146Lvitfyt SDOH Food Ukhce3Fmflmrfhn ClinicStart: 27-06-5739Wogzczp SDOH Transport Ffk9Tzomnjkvz ClinicStart: 52-18-0675Tbr Assigned At BirthFemaleCleveland ClinicStart: 21-66-6627Kbhtnzw smoking status NeverExecutive Urology of [facility] BellevueStart: 06-08-2023 Sex Assigned At BirthFeKettering Health HamiltonTobacco smoking status NHISTobacco smoking consumption unknownUnChildren's Hospital of Columbus Work Phone: Start: 07-79-3948Fzxlume intakeEx-drinker (finding) [facility] Work Phone: Start: 10-03-2009 End: 61-71-8210WrgXwmdhi (finding)[facility] Medical Centerexual OrientationExec[facility] Medical Equipment Procedure CodeEquipment CodeEquipment Original TextEquipment IdentifierDatesSt Hudson 2087tc/[id number]: 75-00-1155Ha Hudson 2087tc/[id number]_impStart: 04-92-0012Za Hudson Assurity Mri [id number]_fnsGimgx: 33-06-6893Mcis Port-A-Cath Ii 7.8fr 2.6mm 1.6mm Polysulfone Titanium Polyurethane 76 - [id number]_ubbZelfd: 02-65-3054Cuyklj Feeding Tube 10f [id number]_imp Start: 11-34-4501Hgu Ponsky 20fr Silicone Peg Pull Deluxe Kit Non Safety Sterile - [id number]_vrdGaaij: 96-15-2351Stif Claudio Secur-Migue 20fr Standard J Silicone Jejunostomy Trimmable Distal - [id number]_ixiLtdhx: 04-20-2019 Tube Claudio Secur-Migue 18fr Standard Silicone Natural Rubber Jejunostomy - [id number]_kayJvcyk: 90-71-5289Log Endovive 20fr Xylocaine Silicone Peg Pull Method Ampule Trocar Cannula - [id number]_kpjQchfd: 10-25-2019 Goals DatePatient GoalDesired Activity/State Functional Status SbajRzeterknoiIyxtjdRasjfezk29-90-6715Lufgmxscrq StatusN/[facility]11-07-2023Functional StatusN/AExecutive [facility]rology of [facility]06-26-2023Functional statusPatient at BaselineAshtabula County Medical Center Work Phone: [phone]itzrxcc StatusN/[facility]05-13-2023Functional statusPatient at BaselineAshtabula County Medical Center Work Phone: [phone]vctokjy statusPatient at Baseline [facility] Work Phone: [phone]jglxgvs StatusN/AExec[facility] of [facility]02-22-2023Functional statusPatient at BaselineAshtabula County Medical Center Work Phone: [phone]ofcfhvd statusPatient at Baseline [facility] Work Phone: 1([phone]frxxtkrd statusPatient at Baseline [facility] Work Phone: Mental Status TrfgVrfmtyapjfZiyxnmDgltpepr79-05-5782Ldnanyzjt functionCognitive Status Patient at BaselineAshtabula [facility] Medical Center Work Phone: [phone]iekxco functionCognitive Status Patient at BaselineAshtabula [facility] Center Work Phone: [phone]hnmhcdu functionCognitive Status Patient at BaselineAshtabula County Medical Center Work Phone: [phone]saviqt functionCognitive Status Patient at BaselineAshtabula County Medical Center Work Phone: [phone]jstfdg functionCognitive Status Patient at BaselineAshtabula [facility] Medical Center Work Phone: [phone]ortovp functionCognitive Status Patient at BaselineAshtabula County Medical Center Work Phone: Clinical Notes 06-07-2019 to 01-02-2025 Note Date & PbhhIcgqFjdaqjcm00-49-7746 Hospital Discharge instructions Patient Education 01/02/2025 10:32:03 [...] including vitamins, herbs, eye drops, creams, and lmys-czs-jobpxrz medicines. Any problems you or family members [...] provider tells you to take them. Taking tpsw-pgk-cvzkbra medicines, vitamins, herbs, and supplements. Tests You [...] Follow these instructions at home: Medicines Take wjje-xlf-eygnrtw and prescription medicines only as told by [...] provider. Document Revised: 02/19/2022 Document Reviewed: 01/18/2021 [employer]pres[employer] Patient Education 2023 Pressi. Follow Up Care 07/05/2024 14:01:42 With:[facility] Address: When: Unknown Comments:Only if needed/new problems arise. No scheduled appointment indicated at this time. [facility] 07-14-2025 NotePatient Education Urology Cystoscopy Cystoscopy [...] including vitamins, herbs, eye drops, creams, and rqay-xvp-trmaufq medicines. ??? Any problems you or family [...] tells you to take them. ??? Taking ulkj-nce-zyvnqvy medicines, vitamins, herbs, and supplements. Tests You [...] these instructions at home: Medicines ??? Take gfss-gdl-welmkko and prescription medicines only as told by [...] testing (biopsy) during your (more content not included)...[facility]05-19-2025 Evaluation note* Diagnosis Onset Date Resolution Status Admit Date Port-A-Cath in place acuteMay 2024 2:52pm [facility] Work Phone: 1(225) 835-598801-14-2025 Hospital Discharge instructions Patient Education 07/05/2024 13:36:38 [...] Up Care 06/21/2024 10:16:19 With:Michael HAN Address: [address] [place] [address] [place] [address]- Business (1) When:01/02/2025 13:36:19 Comments:With Martha Chung [facility] 01-14-2025 Evaluation + Plan noteExtracted from:Title: [...] 2024 13:40 ESTUrethra was dilated from 22-30 [place] with [place] sounds. Future Appointments Appointment Date:01/02/2025 08:20:00 AM Scheduled Provider:ESTELA CHUNG PA-C Location:[facility] [place] Appointment Type:URO Office Visit [facility] 01-14-2025 NotePatient Education Custom Cystoscopy with [...] if you have a fever over 100 degreesGood Hope Hospitaler [facility] 07-04-2024 Radiology Diagnostic [facility] Main [place] [address] [place] [address] CT Scan Report Signed Patient: Maricarmen Anderson MR#: [id number] : 1980 Acct:[id number] Age/Sex: 43 / F ADM Date: 5 Loc: CT Room: Type: [facility] Attending Dr: Michael Han MD Copies to: [...] Oro Jr., D.O.07/04/2024 2:58 PM Dictation Location: [place] [address] Transcribed By: [facility] 07/04/241457 Dictated By: Mitchel Oro Jr, DO 07/04/241454 Signed By: 07/04/24 1458 [facility]12-20-2024 Evaluation note* Diagnosis Onset Date Resolution Status Admit Date Cervical radicular pain acuteDeceer 2023 9:26amGastroparesisacuteDeceencompass health [facility] 2023 9:26am [facility] Work Phone: 1(709) 485-539312-12-2024 Hospital Discharge instructions Patient Education 06/02/2024 15:53:20 [...] Follow these instructions at home: Medicines Take tpsl-lgt-wjdtjkd and prescription medicines only as told by [...] provider. Document Revised: 02/27/2021 Document Reviewed: 02/27/2021 [employer]pres[employer] Patient Education 2023 Pressi. Follow Up Care 05/27/2024 13:08:43 With:JATIN RILEY, ESTELA Leone, URL Address: [facility] [place] [address] When: Unknown [facility] 12-12-2024 NotePatient Education Obstetrics and Gynecology [...] these instructions at home: Medicines ??? Take noph-lvu-nxkboqy and prescription medicines only as told by [...] provider. Document Revised: 02/27/2021 Document Reviewed: 02/27/2021 Xpres[employer] Patient Education ? 2023 Pressi.[facility] 05-25-2024 Hospital Discharge instructions Follow Up Care 05/25/2024 15:26:22 With:JATIN RILEY, ESTELA Leone, URL Address: [address] [place] [address] When: Unknown [facility] Екатерина [id number] Hospital Discharge instructions Patient Education 04/28/2023 10:54:08 Urinary Tract Infection, Adult, Zcjy-ig-Mwrx Urinary Tract Infection, Adult A urinary tract [...] Follow these instructions at home: Medicines Take fwsi-ybb-hqkyyqr and prescription medicines only as told by [...] provider. Document Revised: 01/18/2021 Document Reviewed: 01/18/2021 [employer]pres[employer] Patient Education 2022 Pressi. Follow Up Care 01/21/2023 14:42:53 With:ESTELA CHUNG PA-C, URL Address: [address] [place] [address]. [place] [address] [id number] When: Unknown Comments:3 yr w/ CRESCENCIO [facility] 06-26-2023 Discharge summary Author Nimesh regalado [facility] December 15, 2022 9:25amNote Date/TimeJune 2022 9:24am[address] [address] Discharge Summary Signed Patient: Maricarmen Anderson MR#: [id number] : 1980 Acct:[id number] Age/Sex: 42 / F Adm Date: 3 Loc: 1S Room: 1C0614-[address]: Eduardo Swain MD Copies to: [...] self or stop treatment, but to call [employer], [employer] or come to the nearest emergency room.The [...] Q28D promethazine 12.5 mg suppository 12.5 mg NV Q6H PRN (Reason: Nausea And Vomiting) Patient [...] Days Qty: 30 0RF Follow Up: [facility] - [facility] [Outside] [facility]] Viktor Bradford MD [Primary Care Provider] - (Call your primary provider for any medical needs. ) Documented By: Nimesh Cerda MD 3 23 Signed By: <Electronically signed by Nimesh Cerda MD> 12/15/22 0925 [facility] Work Phone: 1(611) 294-361806-25-2023 Progress note Author Nimesh regalado [facility] December 14, 2022 7:31amNote Date/TimeJun2022 7:29amMichael [place] [id number] Psychiatry Progress Note Signed Patient: Maricarmen Anderson MR#: [id number] : 1980 Acct:[id number] Age/Sex: 42 / F Adm Date: 06/22/2 3 Loc: 1S Room: 0V4719-4 Type : ADM IN Attending Dr: Eduardo [...] signed by Nimesh Cerda MD> 12/14/22 0731 [facility] Work Phone: 1(791) 523-901506-24-2023 Progress note Author Nimesh regalado [facility] December 13, 2022 8:43amNote Date/TimeJune 2022 6:53[place] [id number] Psychiatry Progress Note Signed Patient: Maricarmen Anderson MR#: [id number] : 1980 Acct:[id number] Age/Sex: 42 / F Adm Date: 3 Loc: 1S Room: 3L0316-1 Type : ADM IN Attending Dr: Eduardo [...] explained Documented By: Nimesh Cerda MD 3 0108 Signed By: <Electronically signed by Nimesh Cerda MD> 12/13/22 0843 [facility] [facility] Work Phone: 1(321) 385-745206-23-2023 History and physical note Author Eduardo Swain [facility] December 12, 2022 10:19amNote Date/TimeJune 2022 10:19[place], [place] [address] Psychiatry H&P Signed Patient: Maricarmen Anderson MR#: [id number] : 1980 Acct:[id number] Age/Sex: 42 / F Adm Date: 3 Loc: Room: [address] [place] [address] Type: ADM IN Attending Dr: Eduardo Swain [...] BID 15 days #30 tabs 09/07/22 [Rx Vhcqhldem34/22/23] ondansetron 4 mg disintegrating tablet 4 mg [...] promethazine 12.5 mg rectal suppository 12.5 mg NV Q6H PRN Nausea And Vomiting 12/11/22 [History [...] cloudy A Urine pH 6.0 Ur Specific [place] 1.015 Urine Protein Negative Urine Glucose (UA) [...] <Electronically signed by Eduardo Swain MD> 12/12/22 2352 [facility] Work Phone: 1(175) 736-448306-20-2023 Hospital Discharge instructions Patient Education 12/09/2022 09:42:03 [...] Address: [facility] [address] [place] [address]- Business (1) When:06/10/2023 09:41:40 Comments:Patient is to get scheduled for a CT abdomen and pelvis today [facility]05-13-2023 Discharge summary Author Nimesh regalado [facility] November 01, 2022 9:36amNote Date/TimeMay 2022 9:[place] [id number] Discharge Summary Signed Patient: Maricarmen Anderson MR#: [id number] : 1980 Acct:[id number] Age/Sex: 42 / F Adm Date: 3 Loc: Room: [address] [place] [address]: Toribio Cerda MD Copies to: [...] Creatinine Clear 114.96, Sodium 140, Potassium 4.0, Ifepslhs068, Carbon Sbpklro04.4, Anion Gap 10.6, BUN 14, Creatinine 0.82, Est GFR (CKD-EPI) > 60.0, Glucose 74, Calcium 8.8, Vitamin B12 205 11/01/22 06:20: Corrected WBC 5.1, Uncorrected WBC Count 5.1, RBC 3.89, Hgb 12.5, Hct 37.5, MCV 96.5, MCH 32.2, MCHC 33.4, RDW 12.9, Plt Count 184, MPV 7.8,Neut % (Auto) 54.1, Lymph % (Auto) 34.7, [place] % (Auto) 6.1, Eos % (Auto) 4.2, Baso % (Auto) 0.9, Nucleat RBC Rel Count 0.1, Neut # (Auto) 2.8, Lymph # (Auto) 1.8, [place] # (Auto) 0.3, Eos # (Auto) 0.2, [...] (DC), Gastroparesis (Delayed Gastric Emptying) (DC), [facility] DC Instructions Prescriptions: New promethazine [Promethegan] 12.5 mg Suppository 12.5 mg NV Q6H PRN (Reason: Nausea And Vomiting) 15 [...] 30 Days Qty: 1 0RF Follow Up: [facility] [Outside] [facility] [Outside] - 11/11/22 10:00 am (At this appointment you will see the nurse, your counselor, and Dr. Piña. You will also receive your long acting injection. This appointment will take appoximately 2-1/2 hours. You may bring a snack if you would like. ) [facility] [Outside] (Case Management: You will RECEIVE [...] signed by Nimesh Cerda MD> 11/01/22 0936 [facility] Work Phone: 1(482) 872-515805-12-2023 Progress note Author Afshan Hines [facility] October 31, 2022 2:14pmNote Date/TimeMay 2022 2:09[place] [address] Hospitalist Progress Note Signed Patient: Maricarmen Anderson MR#: [id number] : 1980 Acct:[id number] Age/Sex: 42 / F Adm Date: 3 Loc: Room: [address] [place] [address] Type: ADM IN Attending Dr: Toribio Cerda [...] 19:16 10/30/22 15:11 Promethazine 12.5 Mg Supp.Rect NV 10/29/23 19:15 12.5 mg Q6H PRN Administration [...] chronic -Patient follows [facility] Johnson [phone] -metoclopramide scheduled, prn ondansetron/ promethazine for symptoms -note patient is 2 months ago Chronic conditions 1. Chronic back pain?tizanidine Schizoaffective disorder -Further plan of care per inpatient psychiatric team for psychoactive medicationmanagement/adjustment in psych with therapy Documented By: LI Coleman 3 [id number] Signed By: <Electronically signed by ANP-RAISA Hines> 10/31/22 1414 [facility] Work Phone: 1(687) 519-856805-12-2023 Progress note Author Nimesh regalado [facility] October 31, 2022 8:45amNote Date/TimeMay 2022 8:45[place] [address] Psychiatry Progress Note Signed Patient: Maricarmen Anderson MR#: [id number] : 1980 Acct:[id number] Age/Sex: 42 / F Adm Date: 3 Loc: Room: [address] [place] [address] Type : ADM IN Attending Dr: Toribio [...] signed by Nimesh Cerda MD> 10/31/22 0845 [facility] Work Phone: 1([phone]) 187-619605-11-2023 Consult note Author Rosendo Holland [facility] 2022 1:42pmNote Date/TimeMay 2022 3:40[place] [address] Hospitalist Consult Note Signed Patient: Maricarmen Anderson MR#: [id number] : 1980 Acct:[id number] Age/Sex: 41 / F Adm Date: 3 Loc: Room: [address] [place] [address] Type: ADM IN Attending Dr: Toribio Cerda MD Copies to: MD Afshan Goldsmith, [facility] MD Rosendo Hsu, DO~ HPI [...] beadded. Patient routinely follows with GI[facility] at [facility] for this and has upcoming appointment [...] negative unless noted below or in HPI [facility] Attestation Statement: The following information was validated [...] BID 15 days #30 tabs 09/07/22 [Rx Daplsilen32/09/23] paliperidone palmitate 156 mg/mL intramuscular syringe (Invega [...] Creatinine Clear 136.41, Sodium 141, Potassium 3.8, Efliuyrg995 H, Carbon Dioxide 24.6, Anion Gap 11.2, [...] % (Auto) 69.0, Lymph % (Auto) 19.9, [place] % (Auto) 6.5, Eos % (Auto) 3.9, Baso % (Auto) 0.7, Nucleat RBC Rel Count 0.2, Neut # (Auto) 4.2, Lymph # (Auto) 1.2, [place] # (Auto) 0.4, Eos # (Auto) 0.2, [...] y for gastroparesis 2019 -Patient follows with [facility] GI services on outpatient basis and [...] signed by Rosendo Holland DO> 10/30/22 1342 [facility] Work Phone: 1(406) 746-394505-11-2023 Progress note Author Nimesh regalado [facility] 2022 11:53amNote Date/TimeMay 2022 9:52[place], [place] [address] Psychiatry Progress Note Signed Patient: Maricarmen Anderson MR#: [id number] : 1980 Acct:[id number] Age/Sex: 42 / F Adm Date: 3 Loc: Room: [address] [place] [address] Type : ADM IN Attending Dr: Toribio [...] status Documented By: Nimesh Cerda MD 3 [id number] Signed By: <Electronically signed by Nimesh Cerda MD> 10/30/22 4588 [facility] Work Phone: 1(663) 253-747405-10-2023 History and physical note Author Nimesh regalado [facility] October 29, 2022 11:26amNote Date/TimeMay 2022 10:39[place], [place] [address] Psychiatry H&P Signed Patient: Maricarmen Anderson MR#: [id number] : 1980 Acct:[id number] Age/Sex: 41 / F Adm Date: 3 Loc: 1S Room: 0Z6115-1 Type: ADM IN Attending Dr: Toribio Cerda [...] BID 15 days #30 tabs 09/07/22 [Rx Hrshaexlm04/09/23] paliperidone palmitate 156 mg/mL intramuscular syringe (Invega [...] Appearance Clear Urine pH 6.0 Ur Specific [place] 1.024 Urine Protein Negative Urine Glucose (UA) [...] signed by Nimesh Cerda MD> 10/29/22 1126 [facility] Work Phone: 1(279) 155-129702-11-2023 Consult note Author William Leyva [facility] August 02, 2022 10:49amNote Date/TimeFebruary 2022 10:49[place], [place] [address] Neurology Consult Note Signed Patient: Maricarmen Anderson MR#: [id number] : 1980 Acct:[id number] Age/Sex: 41 / F Adm Date: 3 Loc: Room: [address] [place] [address] Type: ADM IN Attending Dr: Dustin Cody MD Copies to: DO Viktor Chambers MD Penola Jones, MD-NOMS~ HPI Consult Date: 08/02/22 Design Draftsman: William Leyva, DO PMFSH Vaccinated for COVID-19?: [...] rapidly alternating movements. No limb dysmetria with rydyvd-dzzv-bbrmez testing. DATA REVIEW: CT head from December 13, 2020 personally reviewed and axially shows a crowded foramen magnum with bilateral cerebellar lingula visible in the foramen magnum. MRI brain February 19, 2020 personally reviewed and shows 6 to 7 mm of bilateral cerebellar tonsillarprotrusion through the foramen magnum. MRI cervical spine from November 13, 2020 at [facility] report reviewed and showed 6 to [...] magnet and she gets her imaging at [facility]). I also presume that she is [...] Apr;230:1-5. doi: 10.1016/j.ejogrb.2018.09.006. Epub 2017Mar 01. PMID: 88016475. Alejandro R, Maribel R, Vahid Y, Young BC, Nura R, Anusha R, Gavin PATINO, González EM. Chiari I malformation and : a comprehensive review of the literature to address common questions and to guide management. Acta Neurochir ([place]ien). 2019;162(7):0092-0110. doi: 10.1007/v11598-492-10214-0. Epub 2019Oct 07. PMID: 21394088. Code(s): G93.5 - Compression of brain Status: Acute Documented By: William Leyva DO 08/02/22 1032 Signed By: <Electronically signed by William Leyva DO> 08/02/22 1049 [facility] Work Phone: 1([phone]) [phone] Discharge summary Author Eduardo Swain [facility] July 17, 2022 12:17pmNote Date/TimeJanuary 2022 12:16[place] [address] Discharge Summary Signed Patient: Maricarmen Anderson MR#: [id number] : 1980 Acct:[id number] Age/Sex: 41 / F Adm Date: 3 Loc: 1S Room: [address] [place] [address]: Eduardo Swain MD Copies to: [...] lives at home with 14-year-old son Employment: [employer] [place] Patient was restarted on her home medications. [...] diet No activity restrictions Instructions: Depression, [facility] DC Instructions [...] 30 Days Qty: 30 0RF Follow Up: [facility] Hotline [Outside] [facility] [Outside] Documented By: Eduardo Swain MD 07/17/221213 Signed By: <Electronically signed by Eduardo Swain MD> 07/17/22 [facility] Work Phone: 1([phone]) 485-670201-25-2023 Progress note Author Eduardo Swain [facility] July 16, 2022 12:37pmNote Date/TimeJan2022 12:37pm[place] [address] Psychiatry Progress Note Signed Patient: Maricarmen Anderson MR#: [id number] : 1980 Acct:[id number] Age/Sex: 41 / F Adm Date: 3 Loc: Room: [address] [place] [address] Type : ADM IN Attending Dr: Eduardo [...] <Electronically signed by Eduardo Swain MD> 07/16/22 [facility]7 [facility] Work Phone: [phone] History and physical note Author Eduardo Swain [facility] July 15, 2022 2:28pmNote Date/TimeJanuary 2022 2:28[place] [address] Psychiatry H&P Signed Patient: Maricarmen Anderson MR#: [id number] : 1980 Acct:[id number] Age/Sex: 41 / F Adm Date: 3 Loc: Room: [address] [place] [address] Type: ADM IN Attending Dr: Eduardo Swain [...] lives at home with 14-year-old son Employment: [employer] in [place] Review of symptoms: Constitutional: Denies chills and [...] Cloudy A Urine pH 5.5 Ur Specific [place] 1.010 Urine Protein Negative Urine Glucose (UA) [...] signed by Eduardo Swain MD> 07/15/22 1428 [facility] Work Phone: [phone]) [phone] Miscellaneous Notes* Telephone Encounter - BYRON Richter [...] the port. BYRON Richter documented in this encounterUniversity Hospitals [facility]03-30-2022 Miscellaneous Notes* Telephone Encounter - Kathi Waterman [...] She states she will go to a [facility] because local ER doesn't know what [...] calling: self Call patient at: at home [phone] (home) [phone] (cell) Was an appointment scheduled: No Closing statement: Symptom Call: Thank you for calling [facility], your call is very important. A nurse will call in approximately 2-4 hours during business hours. If this is an emergency, please contact 911. Uyen Jose De Jesus documented in this encounterUniversity Hospitals Samaritan Medical Center08-09-2021 History of Present illness Wrfmweihf93 you F with known Chiari malformation and suspected ideopathic intracranial hypertension presentsfor evaluation of neck pain, arm pain, and balance problems. She has been dealing with this for several years but it has worsening over the past few months. The pain radiated down from her neck to her back and down both arms.[facility] Work Phone: 1(331) 468-689306-08-2021 NoteHNO ID: [id number] Author: Emelia Baldwin MD Service: ? Author [...] discussing the plan of care Emelia Baldwin, [facility]05-25-2021 NoteHNO ID: [id number] Author: RT Argentina(R) Service: Radiology Author Type: Threading Machine Operator Type: Progress Notes Filed: 11/13/2020 [...] MARTIN/ RT Argentina(R) November 13, 2020 3:13 [facility]05-25-2021 NoteHNO ID: [id number] Author: Yuni Parry RN Service: Nursing Author [...] Anderson DATE: November 13, 2020 TIME: 1:07 [facility]05-25-2021 NoteHNO ID: [id number] Author: Dakota Moreno RN Service: Radiology Author [...] Dakota Moreno RN November 13, 2020 3:18 [facility]05-25-2021 NoteHNO ID: [id number] Author: RT Duarte(Liz) Service: Radiology Author Type: Threading Machine Operator Type: Progress Notes Filed: 11/13/2020 [...] BY: RT Duarte(R) November 13, 2020 10:28 [facility]05-23-2021 NoteHNO ID: [id number] Author: Vicente New MD Service: General Surgery [...] LIPASE 21 SIGNATURE: Lucero Wheeler DO Pager: [phone] DATE: 11/11/2020 TIME: 8:28 AM [facility] [...] November 11, 2020 TIME of SERVICE: 6:19 [facility]05-22-2021 NoteHNO ID: [id number] Author: Vicente New MD Service: General Surgery [...] LIPASE 21 SIGNATURE: Lucero Wheeler DO Pager: [phone] DATE: 11/10/2020 TIME: 10:07 AM [facility] STAFF PHYSICIAN NOTE OF PERSONAL INVOLVEMENT [...] November 10, 2020 TIME of SERVICE: 9:27 [facility]05-21-2021 NoteHNO ID: [id number] Author: Mechelle Connolly PharmD Service: Pharmacy Author Type: Pharmacist Type: Plan of Care Filed: 11/09/2020 1:40 PM Note Text: PHARMACY MEDICATION REVIEW Patient Name: Maricarmen Anderson : 1980 The following medications were updated within the STRE[facility]PER medication list: Medications ADDED to [facility]RE[facility] medication list ? Abjovy 225/1.5 inj monthly Medications CHANGED on STRE[facility] medication list ? Ativan 1mg po at bedtime Medications REMOVED from STRE[facility] medication list ? NS 1000mL infusions ? [...] Unable to assess Preferred outpatient pharmacy: [facility]- [facility]/pharmacy #[id number] [place] [address] - [address] [facility] [phone] [place] [address] Allergies: Dilaudid [Hydromorp* Itching Prior to Admission [...] as needed. Yes Mechelle Connolly, PharmD 11/09/2020[facility]05-19-2021 NoteHNO ID: [id number] Author: Clemente Johnson MD Service: ? Author Type: Physician Type: Progress Notes Filed: 11/07/2020 4:52 PM Note Text: Established VIRTUAL CONSULT NAME: Maricarmen Anderson CLINIC NO: [id number] DATE OF SERVICE: November 07, 2020 I [...] further workup at home vs coming to [facility] - If get's worse, then she will come back to [facility] During this patient visit I have spent approximately 30 minutes rahf-ya-lnti with the patient and over half the time was devoted to counseling and/or coordination of care. We discussed in depth the possible surgical treatment of gastroparesis and options involved. Clemente Johnson MD PAST HISTORY PAST MEDICAL HISTORY Diagnosis Date - Acute 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, 2013, also on OCPs - Eosinophilic esophagitis - Gastroparesis - GERD (gastroesophageal reflux disease) - History of gastric bypass complications - Obesity, Class III, BMI 40-49.9 (morbid obesity) ([facility]) - Port-A-Cath in place patients right upper [...] (0600/1600). - cholecalciferol (VITAM (more content not included)...[facility]04-30-2021 NoteHNO ID: [id number] Author: Clemente Johnson MD Service: ? Author Type: Physician Type: Progress Notes Filed: 10/19/2020 9:56 AM Note Text: Established VIRTUAL CONSULT NAME: [facility]ic[facility]en [facility] NO: [id number] DATE OF SERVICE: October 19, 2020 I [...] days. No erythema. Pain Seen by [facility] as IP 09/29/20 - No malnutrition Last [...] with me later this week with either BonzerDarg message or a phone call concerning her J-tube site. -Follow-up visit in the summertime for those gastrectomy labs -I think some of her abdominal pain is related to her recent J-tube dislodgment. If is not improved by late November and then will do further work-up. This point is not debilitating. During this patient visit I have spent approximately 25 minutes bcta-zm-swpn with the patient and over half the [...] 250 mg by m (more content not included)...[facility]04-28-2021 NoteHNO ID: [id number] Author: Doug Duncan PA-C Service: ? Author Type: Physician Lap Hand Tool Type: Progress Notes Filed: 10/22/2020 12:29 PM [...] you. LORENE Levy October 17, 2020 2:20 [facility]04-28-2021 NotePatient Outreach (VTRIAG) ANYMARICARMEN GRECO ([id number]) 1980 F T Date Time Provider Department [...] 05/25/2020 Encounter Status:Closed by DOUG DUNCAN on 10/22/20[facility] 09-29-2020 NoteHNO ID: [id number] Author: Elissa Medina MD Service: General Surgery [...] closely. Elissa Medina DO General Surgery, PGY-1[facility] NoteHNO ID: [id number] Author: Kiara VasquezRnNorth [place] RN Service: Care [...] Physician Primary Care Physician Name/Phone: Vilma Bradford [phone] TRANSPORTATION ARRANGEMENTS: Transportation Arrangements: Car ADDITIONAL CONTACT RESOURCES: none Needs Prior to Discharge: Ready for Discharge;Nutrition Enteral Arrangements IMM Follow Up Copy Given: Yes Copy given to:: Patient Method: In Person Pt has been cleared for dc today to home with self care and resumption of TF from [facility]. New RX has been obtained and sent to [facility]. Due to late timing of receiving the RX, [facility] will not be able to order [...] 29, 2020 TIME: 4:10 PM PAGER/CONTACT #: [phone] Note HNO ID: [id number] Author: Deirdre Dejesus Service: General Surgery Author Type: Resident Type: Progress Notes Filed: 05/29/2020 7:13 AM Note Text: Attestation signed by Clemente Johnson at 05/29/2020 4:17 PM Attending Note I evaluated the patient and personally participated in the edward components. I agree with the resident's findings and plan with the following revisions and/or additions: Patient feels better on Bouf. Given letter about incidentals (Renal mass and [...] 9.1 8.8 SIGNATURE: Deirdre Dejesus DO Pager: [phone] DATE: 05/29/2020 TIME: 7:05 [facility]12-07-2020 NoteHNO ID: [id number] Author: Kiara (Rn) LAURYN [place] Service: Care [...] 28, 2020 TIME: 10:19 AM PAGER/CONTACT #: [phone] Note HNO ID: [id number] Author: Raleigh Srivastava DO Service: General Surgery [...] surveillance. Raleigh Srivastava DO General Surgery, PGY-3[facility]-2020 NoteHNO ID: [id number] Author: Deirdre Dejesus Service: General Surgery Author Type: Resident Type: Progress Notes Filed: 05/27/2020 7:02 AM Note Text: Attestation signed by Clemente Johnson at 05/27/2020 4:01 PM Attending Note I evaluated the patient and personally participated in the edward components. 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 Last discharge within 30 days: No Advance Directive: Current Advance Directive: None Distribution Technician Attempted to Assist with AD Completion: [...] supplies Has the Patient Been in a Prison Facility in the Past 30 days?: No [...] Completely I feel financially burdened by my bhj-dj-shwyaj expenses for my prescription medication:: 0 - Disagree Completely Risk Score: 0 Patient is categorized as: Low risk < 2 Are you interested in bedside delivery of your medications? No Is Patient Psychosocially Complex?: No ASSESSMENT AND PLAN: Medical Needs: Medical Needs: Two or more chronic diseases;Nutritional Nutrition Needs: Tube Feed Psychosocial Needs: FREEDOM OF CHOICE EXPLAINED: [place] of Choice Given: Yes Level of Care Discussed: Other: See Comment(home pharmacy) Provider list within the patient's requested geographic area shared with the patient/family: No Reason: Patient active with [facility] for tubefeeding and planning to continue at discharge POTENTIAL TRANSITION PLANS Home;Home Care Pharmacy SIGNATURE: Idalia Cohen RN PATIENT NAME: Maricarmen Anderson DATE: May 26, 2020 TIME: 2:16 PM PAGER/CONTACT #: [phone] Note HNO ID: [id number] Author: Interface Note Service: ? Author Type: ? Type: Progress Notes Filed: 05/26/2020 3:18 AM Note Text: Epic Scheduled Downtime: 05/26/2020 1:00:00 AM to 05/26/2020 3:06:00 [facility]07-13-2020 NoteHNO ID: [id number] Author: Maynor Manley DO Service: General Surgery [...] home today. SIGNATURE: Maynor Manley DO PAGER: [phone] DATE: January 02, 2020 TIME: 7:22 AM [...] Lubin DO Pager: DATE: 01/02/2020 TIME: 7:10 [facility]07-12-2020 NoteHNO ID: [id number] Author: Glenny Chavarria (Sw) Service: Care Management Author Type: Arboriculture Teacher Type: Care Mgt Progress Note Filed: 01/01/2020 [...] 01, 2020 TIME: 8:30 AM PAGER/CONTACT #: [phone] [facility]2020 NoteHNO ID: [id number] Author: Avtar Randhawa Service: General Surgery Author [...] January 01, 2020 Time: 6:31 AM Pager: [phone] between 6AM-5PM weekday. [phone] for weekend and night call.[facility]07-12-2020 NoteHNO ID: [id number] Author: Interface Note Service: ? Author Type: ? 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 No Is Patient Psychosocially Complex?: No ASSESSMENT AND PLAN: Medical Needs: Medical Needs: Two or more chronic diseases Psychosocial Needs: Psychosocial Needs: None FREEDOM OF CHOICE EXPLAINED: [place] of Choice Given: No Reason Not Given: [...] 31, 2019 TIME: 3:09 PM PAGER/CONTACT #: [phone] [facility]07-11-2020 NoteHNO ID: [id number] Author: Interface Note Service: ? Author Type: ? Type: Progress Notes Filed: 12/31/2019 3:12 AM Note Text: Epic Scheduled Downtime: 12/31/2019 1:00:00 AM to 12/31/2019 2:45:23 [facility]12-17-2019 History of Past illness Narrative* ProblemNoted DateResolved DateNausea & vwusrtvk44Dislodged jejunostomy tube05/17/2019 05/18/20196808Ndmcmzk88SyncopeHeadache Headache in front of head Last Assessment & Plan: Assessment: - Frontal headache for past 2-3 days - Some photophobia - denies visual changes - intermittent dizziness with standing, this is not new PLAN: - headache cocktail PRN - MRI brain - EEG Altered [id number] Overview: Altered Mentation beginning on 02/26, thought due to UTI initially. Placed on CIpro course of ABX without improvement presented to several [facility] ED and admitted once to [facility] with Negative MRI/EEG work up Continues to [...] on Cipro and presented to [facility] and had a negative culture, antibiotics were stopped - She had an MRI/EEG workup at [facility] - negative - Continues symptoms- confusion, memory loss, slow to respond, slowed speech, numbness intermittently in upper extremities. New frontal headache over past 2-3 days, no visual changes. PLAN: - EEG - MRI kem [facility] - Thiamine, B6, B12, Ammonia, Lead, niacin, Ferritin, copper, Vit E pending - PRN headache cocktail - Neurology consulted Nausea & [id number] Overview: K 3.3, likely 2/2 poor oral [...] anticoagulation. -Pain and Nausea control. Nausea and [id number] Overview: Please see abdominal pain for more details. Zofran prn. documented as of this encounter (statuses as of 09/18/2021) [facility]12-17-2019 History of Past illness Narrative* ProblemNoted Date Resolved DateNausea & [id number] jejunostomy tube Syncope10/Syncope10/ Ragrbbpr38/Headache in front of head Last Assessment & Plan: Assessment: - Frontal headache for past 2-3 days - Some photophobia - denies visual changes - intermittent dizziness with standing, this is not new PLAN: - headache cocktail PRN - MRI brain - EEG Altered [id number] Overview: Altered Mentation beginning on 02/26, thought due to UTI initially. Placed on CIpro course of ABX without improvement presented to several OSH ED and admitted once to [facility] with Negative MRI/EEG work up Continues to [...] on Cipro and presented to [facility] and had a negative culture, antibiotics were stopped - She had an MRI/EEG workup at [facility] - negative - Continues symptoms- confusion, memory loss, slow to respond, slowed speech, numbness intermittently in upper extremities. New frontal headache over past 2-3 days, no visual changes. PLAN: - EEG - MRI kem [facility] - Thiamine, B6, B12, Ammonia, Lead, niacin, Ferritin, copper, Vit E pending - PRN headache cocktail - Neurology consulted Nausea & [id number] Overview: K 3.3, likely 2/2 poor oral [...] anticoagulation. -Pain and Nausea control. Nausea and [id number] Overview: Please see abdominal pain for more details. Julianna prn. documented as of this encounter (statuses as of 12/26/2021) [facility] complaint Narrative - Reported* Patient is being seen for an initial Neurosurgical evaluation. * History of Chiari malformation. Having neck pain and numbness and tingling in her face and arms. Had seen [facility] doctor, told her not warranted at this time. [id number] Work Phone: Evaluation + Plan note No data available for this section [facility] evaluation + Plan note Future Appointments Appointment Date:05/03/2024 09:00:00 AM Scheduled Provider:ESTELA CHUNG PA-C Location:[facility] Appointment Type:URO Office Visit [facility] evaluation + Plan note Future Appointments Appointment Date:06/02/2024 02:20:00 PM Scheduled Provider:ESTELA CHUNG PA-C Location:[facility] Appointment Type:URO Office Visit [facility] Evaluation note* Diagnosis Onset Date Resolution Status Advanced maternal age affecting pregnanc y, antepartum acuteAnemiaacuteBMI 35.0-35.9,adultacuteDepressionacuteFirst trimester acuteHistory of induced hypertensionacuteMajor [id number] Major depression with psychotic featuresacutePregnancyacutePTSD (post-traumatic stress disorder)acuteUTI (urinary tract infection)acute [facility] Work Phone: Evaluation noteNo assessment information available [facility] Work Phone: evaluation note* Diagnosis Onset Date Resolution Status Hallucinations acuteHistory of induced hypertensionacuteMajor depression with psychotic featuresacutePregnancyacuteSchizoaffective disorderacute [facility] Work Phone: Evaluation note* Diagnosis Onset Date Resolution Status Hallucinations acuteHistory of induced hypertensionacuteMajor depression with psychotic featuresacutePregnancyacuteSchizoaffective disorderacuteChiari malformation type IacuteHistory of induced hypertensionacute [facility] Work Phone: Evaluation note* Diagnosis Onset Date Resolution Status Hallucinations acuteHistory of induced hypertensionacuteMajor depression with psychotic featuresacutePregnancyacuteSchizoaffective disorderacuteChiari malformation type IacuteHistory of induced hypertensionacute Schizoaffective disorderacuteAuditory hallucinationacuteDepression with suicidal ideationacuteSchizoaffective disorderacuteSuicide ideationacute [facility] Work Phone: Evaluation note* Diagnosis Onset Date Resolution Status Chiari malformation type I acuteHistory of induced hypertensionacuteSchizoaffective disorderacute Auditory hallucinationacuteDepression with suicidal ideationacuteSchizoaffective disorderacuteSuicide ideationacuteAuditory hallucinationsacute [facility] Work Phone: Evaluation note* Diagnosis Onset Date Resolution Status Schizoaffective disorder acuteAuditory hallucinationacuteDepression with suicidal ideationacute Schizoaffective disorderacuteSuicide ideationacuteAuditory hallucinationsacute GastroparesisacuteNausea & vomitingacuteSchizoaffective disorderacute [facility] Work Phone: Evaluation note* Diagnosis Onset Date Resolution Status Auditory hallucinations acuteGastroparesisacuteNausea & vomitingacuteSchizoaffective disorderacute [facility] Work Phone: Evaluation note* Diagnosis Onset Date Resolution Status Auditory hallucinations acuteGastroparesisacuteNausea & vomitingacuteSchizoaffective disorderacute Schizoaffective disorderacuteSuicide ideationacute [facility] Work Phone: Evaluation note* Diagnosis Pacemaker Cardiac pacemaker in situ Sick sinus syndrome (CMS/HCC) Sinoatrial node dysfunction documented in this encounter [facility] Work Phone: [phone] note* Diagnosis Pacemaker Cardiac pacemaker in situ Sick sinus syndrome (CMS/HCC) Sinoatrial node dysfunction documented in this encounter [facility] Work Phone: [phone] note* Diagnosis Pacemaker Cardiac pacemaker in situ Sick sinus syndrome (Multi) Sinoatrial node dysfunction documented in this encounter [facility] Work Phone: [phone] note* Diagnosis Pacemaker Cardiac pacemaker in situ Sick sinus syndrome (Multi) Sinoatrial node dysfunction documented in this encounter [facility] Work Phone: [phone] note* Diagnosis Pacemaker Cardiac pacemaker in situ Sick sinus syndrome (Multi) Sinoatrial node dysfunction documented in this encounter [facility] Work Phone: History and physical note Author Eduardo Swain [facility] December 12, 2022 10:19amNote Date/TimeJune 2022 10:19[place], [place] [address] Psychiatry H&P Signed Patient: Maricarmen Anderson MR#: [id number] : 1980 Acct:[id number] Age/Sex: 42 / F Adm Date: 3 Loc: Room: [address] [place] [address] Type: ADM IN Attending Dr: Eduardo Swain [...] BID 15 days #30 tabs 09/07/22 [Rx Zhrfpnddg71/22/23] ondansetron 4 mg disintegrating tablet 4 mg [...] promethazine 12.5 mg rectal suppository 12.5 mg NV Q6H PRN Nausea And Vomiting 12/11/22 [History [...] cloudy A Urine pH 6.0 Ur Specific [place] 1.015 Urine Protein Negative Urine Glucose (UA) [...] signed by Eduardo Swain MD> 12/12/22 1019 [facility] Work Phone: History of Present illness [...] 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 * Personal review of ECG and cardiac [...] needed, treatment options, risks, benefits, and imponderables. [facility] [employer] lifestyle changes and behavioral modification discussed. All questions answered in detail. Counseling over 50% visit regarding above. Patient appreciative of care. 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 * Personal review of ECG and cardiac [...] needed, treatment options, risks, benefits, and imponderables. [employer] [facility] [employer] lifestyle changes and behavioral modification discussed. All questions answered in detail. Counseling over 50% visit regarding above. Patient appreciative of care. 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 * Personal review of ECG and cardiac [...] needed, treatment options, risks, benefits, and imponderables. [employer] [employer] lifestyle changes and behavioral modification discussed. All questions answered in detail. Counseling over 50% visit regarding above. Patient appreciative of care. 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 * Personal review of ECG and cardiac [...] treatment options, risks, benefits, and i mponderables. [employer] lifestyle changes and behavioral modification discussed. All questions answered in detail. Counseling over 50% visit regarding above. Patient appreciative of care. 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 * Personal review of ECG and cardiac [...] treatment options, risks, benefits, and i mponderables. [place] [employer] lifestyle changes and behavioral modification discussed. All questions answered in detail. Counseling over 50% visit regarding above. Patient appreciative of care. [facility] DO Work Phone: History of Present [...] needed, treatment options, risks, benefits, and imponderables. [employer] [employer] lifestyle changes and behavioral modification discussed. All questions answered in detail. Counseling over 50% visit regarding above. Patient appreciative of care. [facility] DO Work Phone: [facility] instructions[facility] Work Phone: Hospital Discharge instructions Additional Instructions Regular Diet No Activity RestrictionsAshtabula [facility] Center Work Phone: Hospital Discharge instructions Additional Instructions Obtain BP cuff at pharmacy and obtain BP at home twice daily after resting for ten minutes prior to performing. Call Labor and Delivery for BP elevated 150/100 x 2 readings. Return Thursday08/05/2022 at 0900 for NST and BP check.[facility] Work Phone: Hospital Discharge instructions No data available for this section [facility] Hospital Discharge instructions Additional Instructions No Activity Restrictions Regular Diet continue your vitamin therapy after gastric surgery as prescribed. Your vitamin D and B12 were found low while you were i the hospital.[facility] Work Phone: Progress note No data available for this section [facility] reason for visit Narrative* Imaging (Routine) - Pending ReviewSpecialtyDiagnoses / ProceduresReferred By ContactReferred To Contact Cardiology Diagnoses Pacemaker Sick sinus syndrome (Multi) Procedures Cardiac Device Check - Remote Rita Olivia MD [address] [facility] [address], [place] [address] [place] [id number] Phone: tel: fax: Referral IDStatusReasonStart DateExpiration DateVisits RequestedVisits [id number] Review Perform Procedure [facility] Work Phone: Summary Purpose Family History [...] Chief Complaint dizzy headache abd pain n/v [facility] mhpReason for VisitAuditory hallucinations Gastroparesis Nausea & vomiting Schizoaffective disorder Chief Complaint dizzy headache abd pain n/v [facility] mhpReason for VisitAuditory hallucinations Gastroparesis Nausea & vomiting Schizoaffective disorder Schizoaffective disorder Suicide ideation Chief Complaint dizzy headache abd pain n/v [facility] mri clearanceReason for VisitAuditory hallucinations Gastroparesis Nausea & vomiting Schizoaffective disorder Schizoaffective disorder Suicide ideation Chief Complaint [facility] mri clearance N28.89Reason for VisitAuditory hallucinations [...] Remote Rita Olivia MD [address] [facility] [address], [address] [place] [address] Referral IDStatusReasonStart DateExpiration DateVisits RequestedVisits [id number] Review Perform Procedure / Additional Source Comments INFORMATION SOURCE (unrecogn ized section and content) DATE CREATED AUTHOR 05/13/2019 [facility] DATE CREATED AUTHOR AUTHOR'S ORGANIZ ATION 09/27/2019 [facility] DATE CREATED AUTHOR AUTHOR'S ORGANIZ ATION 02/11/2020 [facility] DATE CREATED AUTHOR AUTHOR'S ORGANIZ ATION 11/18/2020 [facility] DATE CREATED AUTHOR AUTHOR'S ORGANIZ ATION 09/20/2021 [facility] DATE CREATED AUTHOR AUTHOR'S ORGANIZ ATION 10/31/2022 [facility] DATE CREATED AUTHOR AUTHOR'S ORGANIZ ATION 01/21/2023 [facility] DATE CREATED AUTHOR AUTHOR'S ORGANIZ ATION 01/22/2023 [facility] [place] DATE CREATED AUTHOR AUTHOR'S ORGANIZ ATION 03/05/2023 [facility] DATE CREATED AUTHOR AUTHOR'S ORGANIZ ATION 11/06/2023 [facility] DATE CREATED AUTHOR AUTHOR'S ORGANIZ ATION 01/04/2025 [facility] DATE CREATED AUTHOR AUTHOR'S ORGANIZ ATION 03/24/2025 [facility] DATE CREATED AUTHOR AUTHOR'S ORGANIZ ATION 04/08/2025 [facility] DATE CREATED AUTHOR AUTHOR'S ORGANIZ ATION 04/15/2025 [facility] Source Comments (unrecognize d section and content) In the event this informatio n is protected by the Federal Confidentiality of Alcohol and Drug Abuse Patient Records regulations: The Federal rules restrict any use of the information to criminally investigate or prosecute any alcohol or drug abuse patient.[facility] CenterIn the event this information is protected by the Federal Confidentiality of Alcohol and Drug Abuse Patient Records regulations: The Federal rules restrict any use of the information to criminally investigate or prosecute any alcohol or drug abuse patient.[facility] Reason for Visit (unrecogniz ed section and content) ReasonCommentsPatient UpdateSpecialtyDiagnoses / ProceduresReferred By Contact Referred To ContactCardiology Diagnoses Pacemaker Sick sinus syndrome (CMS/HCC) Procedures Cardiac Device Check - Remote Rita Olivia MD [address] [facility], [address] [address] Referral IDStatusReasonStart DateExpiration DateVisits RequestedVisits [id number] Review Perform Procedure [id number] / ProceduresReferred By ContactReferred To ContactCardiology Diagnoses Pacemaker Sick sinus syndrome (CMS/HCC) Procedures [place] - [place] [address] [address] SpecialtyDiagnoses / ProceduresReferred By ContactReferred To ContactCardiology Diagnoses Pacemaker Sick sinus syndrome (Multi) Procedures Cardiac Device Check - Remote Rita Olivia MD [facility] [address] [facility], [address] [address] Care Teams (unrecognized sec tion and content) [...] DateEnd Date Viktor Bradford MD [address] [facility] [place] [phone] PCP - General10/18/13Team MemberRelationshipSpecialtyStart DateEnd Viktor Martinez MD [address] [place] [phone] PCP - General10/18/13 Team Status: Inactive Member [...] MDOther ProviderActiveEarjenny Peterson MDOther ProviderActiveGretta Maki , [employer] ProviderActiveYonny Bazan MDOther ProviderActiveTrace Morataya MD Other [...] General03/02/20Team MemberRelationshipSpecialtyStart DateEnd Date Viktor Bradford MD [address] [place] [address] PCP - General03/02/20Team MemberRelationshipSpecialtyStart DateEnd Date Viktor Bradford MD [address] [place] [address] PCP - General03/02/20Team MemberRelationshipSpecialtyStart DateEnd Date Viktor Bradford MD [address] [place] [address] [place] [address] PCP - General03/02/20Team MemberRelationshipSpecialtyStart DateEnd Date Viktor Bradford MD [address] [place] [address] [place] [address] PCP - General03/02/20 Goals (unrecognized section and [...] BE BASED ON THE PRIMARY CLINICAL RECORDS. [facility]. provides no warranty or guarantee of the accuracy or completeness of information in this document.
--- NOTE | 2025-05-24 10:12 | PM.CN ---
Consult Note: HPI Data of Consult Patient: known to practice within the last 3 years Requesting Physician: Yareli Phillips NP Primary Care Provider: Sharyn Bradford MD Consult Narrative Reason for consult: neck pain Narrative: 44yof who presents for assessment of chronic neck pain. physical therapy was ordered and patient attended first session, but she was told that given her chiari malformation, it was too risky for them to proceed with any further cervical therapy. utilizing zanaflex 2-4mg bid prn with benefit. pain today 6/10 stabbing in neck increasing with twisting, turning, lifting, ADLs, and sleep. recently underwent bilateral C4-5 C5-6 MBB #1 and #2 with >80% improvement in pain and functional ability while anesthetized, preop pain up to 10/10 post op pain 0/10 greater than 2 hours. cc:: CC: Yareli Phillips NP Review of Systems ROS Musculoskeletal Reports: neck pain PFSH PFSH Medical History Hypertension ?I10 - Essential (primary) hypertension (ICD-10) Schizophrenia ?F20.9 - Schizophrenia, unspecified (ICD-10) DVT (deep venous thrombosis) ?I82.409 - Acute embolism and thrombosis of unspecified deep veins of unspecified lower extremity (ICD-10) Obesity ?E66.9 - Obesity, unspecified (ICD-10) Pacemaker ?Z95.0 - Presence of cardiac pacemaker (ICD-10) Sick sinus syndrome due to SA node dysfunction ?I49.5 - Sick sinus syndrome (ICD-10) Gastroparesis ?K31.84 - Gastroparesis (ICD-10) Surgical History S/P reconstruction of ligament of knee ?Z98.890 - Other specified postprocedural states (ICD-10) History of cholecystectomy ?Z90.49 - Acquired absence of other specified parts of digestive tract (ICD-10) Hx of appendectomy ?Z90.49 - Acquired absence of other specified parts of digestive tract (ICD-10) Social History Within the past year, how often did you have a drink containing alcohol: never Score interpretation: A score less than 3 is consistent with normal alcohol consumption. Smoking status: Never smoker Non-prescribed substance use: denies use Highest level of school completed/degree received: high school graduate Are you now , , , , never or living with a partner: living with partner Little interest or pleasure in doing things: not at all Feeling down, depressed, or hopeless: not at all Feel stressed/tense/nervous/anxious/difficulty sleeping: only a little Life stressor details: new baby at age of 42 Do you think of yourself as: straight/heterosexual Gender Identity: female Meds Home Medications and Allergies Home Medications ?Medication ?Instructions ?Recorded ?Confirmed ?Type aripiprazole 30 mg tablet 30 mg PO DAILY 10/26/23 05/15/25 History benztropine 1 mg tablet 1 mg PO BID 10/26/23 05/15/25 History metoprolol succinate 25 mg 25 mg PO DAILY 10/26/23 05/15/25 History tablet,extended release 24 hr mirtazapine 15 mg tablet 15 mg PO .HS 10/26/23 05/15/25 History olanzapine 5 mg tablet 5 mg PO .qd PRN hallucinations 10/26/23 05/15/25 History paliperidone palmitate 234 mg/1.5 234 mg IM Q30D 10/26/23 05/15/25 History mL intramuscular syringe (Invega Sustenna) venlafaxine 150 mg 150 mg PO DAILY 10/26/23 05/15/25 History capsule,extended release 24 hr warfarin 5 mg tablet 5 mg PO DAILY 03/21/24 05/15/25 History tizanidine 4 mg tablet See Rx Instructions .Route 04/06/25 05/15/25 Rx .COMPLEX PRN muscle spasticity #60 tabs Allergies Allergy/AdvReac Type Severity Reaction Status Date / Time hydromorphone (From Dilaudid) Allergy Mild itching Verified 05/15/25 11:43 Exam Constitutional Documenting provider has reviewed patient's vital signs: yes Common normals: no apparent distress, oriented x3, alert and well nourished General appearance: cooperative, disheveled and ill appearing [facility] Common normals: normocephalic, hearing grossly normal bilaterally and moist oral mucous membranes Head and scalp: normocephalic Eye Common normals: PERRL Pupil: PERRL Neck & C-Spine General: normal visual inspection Cervical spine: cervical ROM abnormal, pain with cervical ROM and cervical spine tenderness Other: sensation intact BUE strength 5/5 in BUE Chest Common normals: inspection of chest normal Respiratory Common normals: normal respiratory effort, no retractions and no use of accessory muscles Neuro Common normals: oriented x3 Sensorium/orientation: alert Psych Common normals: mental status grossly normal, thought process normal, cooperative, affect normal, speech normal and activity/motor behavior normal Speech: normal speech Thought process: normal thought process Results Additional Findings Additional findings: If on a controlled substance or opioids, I have checked an [place] report on this patient and there are no aberrancies noted in the prescribing history.??If on a controlled substance or opioid a drug screen was completed and reviewed within the last year, and if there has not been a drug screen completed we ordered one today to monitor higher risk, state monitored pain medication use. As part of providing excellent, safe, comprehensive care, the following was completed at our patient's visit: 1. A medication reconciliation and review to ensure accurate knowledge of current/active medications, including asking our patients to inform us about any [id number] medications or herbal remedies/nutritional supplements/alternative remedies. 2. A review to specifically ensure our patients have had annual screening for screening for depression, screening for tobacco use, and screening for unhealthy alcohol use. For concerning screenings had a discussion with the patient, provided patient education, and recommended follow-up with primary care provider when appropriate. If patient noted with a risk of falling, they received education on strength, gait, and balance training to prevent future risk of falling. Portions of this note may have been carried over from the previous visit and updated as appropriate. Please note this office utilizes paper charting in addition to the electronic medical record. A list of current medications, vitals, and PMH is available there as the clinical staff outside of myself do not have access to [employer] charting during the clinic day operations. As part of providing quality comprehensive care the current medications, vitals, and PMH were reviewed in the paper chart. Assessment and Plan Assessment and Plan (1) Cervical spondylosis: Assessment and Plan: 04-10-25 bilateral C3-4 C4-5 mbb #1 less than 80% improvement (2) Chiari malformation type I: Plan The patient has had over 3 months of moderate to severe neck pain with functional impairment and inadequate response to conservative care including NSAIDS (unless there are contraindication such as concurrent blood thinners), multiple oral or topical pain medications, and home exercise program/physical therapy.? I have reviewed the imaging of the cervical spine and no red flags were identified.? The imaging reveals radiographic findings consistent with cervical spondylosis, ddd, and cervical stenosis The Oswestry Disability Index was completed, and the patient scored a 23%.? right then left C4-5 C5-6 facet RFA for axial facet mediated pain under fluoroscopy continue tizanidine 2-4mg BID PRN pain/spasms/headaches continue HEP as tolerated, PT discharged patient as noted above shes not a candidate for PT due to chiari malformation continue tylenol prn, cannot take NSAIDs on coumadin f/u 1 month after RFA complete
== END 2025-05-24 09:43 | disposition home or self-care (01) ==
LOC: PM 09:43
PROVIDERS: PCP Family Medicine; Visit Provider Nurse Practitioner
DX: M47.812 Spondylosis without myelopathy or radiculopathy, cervical region (principal); G93.5 Compression of brain
CPT/HCPCS: G0463

== ENCOUNTER 2025-06-06 09:24 | Outpatient (RCR) | payer MEDICARE, MEDICAID, SELFPAY ==
[2025-06-06 09:29] VITALS: BP 138/86; PULSE 64; TEMP 36.1; O2SAT 97
[2025-06-06 09:59] LABS: Hematocrit 39.2 % (36.0-48.0); Hemoglobin 13.6 g/dL (12.0-16.0); Immature Granulocytes Abs Auto 0.01 10^3/uL (0.00-0.03); Immature Granulocytes Pct Auto 0.2 % (0.0-0.5); Lymphocytes Absolute Auto 1.7 10^3/uL (1.2-3.8); Mean Corpuscular HGB Conc 34.7 g/dL (29.9-35.2); Mean Corpuscular Hemoglobin 34.3 pg (26.7-34.0); Mean Corpuscular Volume 99.0 fL (81.0-99.0); Platelet Count 197 10^3/uL (150-450); Red Blood Count 3.96 10^6/uL (4.20-5.40); White Blood Count 5.0 10^3/uL (4.0-11.0)
[2025-06-06] MEDS: HEPARIN SODIUM (PORCINE) PF LOCK FLUSH 500 UNIT/5 ML SYRINGE IV (10:02)
[2025-06-06 10:12] LABS: Iron 58.0 ug/dL (50.0-170.0); Percent Iron Saturation 17.5 %; Total Iron Binding Capacity 331.0 ug/dL (250.0-450.0)
[2025-06-06 10:15] LABS: Alanine Aminotransferase 30 U/L (14-59); Albumin Globulin Ratio 0.9; Albumin Level 3.3 g/dL (3.4-5.0); Alkaline Phosphatase 77 U/L (46-116); Anion Gap 12.1; Aspartate Amino Transferase 21 U/L (15-37); Blood Urea Nitrogen 8.0 mg/dL (7.0-18.0); Calcium 8.7 mg/dL (8.5-10.1); Carbon Dioxide 27.5 mmol/L (21.0-32.0); Chloride 107 mmol/L (98-107); Estimated GFR (African America >60 (>=60 mL/min/1.73m^2); Estimated GFR (Non-African Ame >60 (>=60 mL/min/1.73m^2); Globulin 3.5 g/dL; Glucose 111 mg/dL (74-106); Potassium 3.6 mmol/L (3.5-5.1); Sodium 143 mmol/L (136-145); Total Protein 6.8 g/dL (6.4-8.2)
[2025-06-06 10:36] LABS: Ferritin 34.0 ng/mL (8.0-252.0)
[2025-06-07 04:08] LABS: Vitamin B12 341 pg/mL (232-1245)
== END 2025-06-21 23:59 | disposition home or self-care (01) ==
LOC: HEMC 09:24
PROVIDERS: PCP Family Medicine; Visit Provider Internal Medicine Hematology & Oncology
DX: I26.99 Other pulmonary embolism without acute cor pulmonale (principal); D68.69 Other thrombophilia; D64.9 Anemia, unspecified; K90.9 Intestinal malabsorption, unspecified; I82.402 Acute embolism and thrombosis of unspecified deep veins of left lower extremity; D50.9 Iron deficiency anemia, unspecified; D51.9 Vitamin B12 deficiency anemia, unspecified
CPT/HCPCS: 36415; 36591; 36593; 80053; 82306; 82607; 82728; 83540; 83550; 85025; G0463; J1642